=== PATIENT | female | born 1935 | race Caucasian/White ===

== ENCOUNTER 2017-11-30 11:03 | Day surgery (SDC) | payer MEDICARE, BC, SELFPAY ==
[2017-11-30] VITALS (7 sets, daily range): BP systolic 130–146; BP diastolic 63–88; PULSE 54–64; RESP 16; TEMP 36.3–36.9; O2SAT 98–100; BMI 32.1
--- NOTE | 2017-11-30 | COLBX_PTH ---
PATIENT: GEOFFREY NASSAR LOC: EN U#:[id number] AGE/SX: 82/F ROOM: RE11/30/[address]: Dr. Geovanny Al MD : 1935 BED: DIS: 11/30/2017 SPEC #: [id number] RECD: 11/30/17 14:57 STATUS: JUVENTINO RENeal #: [id number] STACI: 11/30/17 00:[address]: Geovanny Al DEPT: SURGICAL PATHOLOGY RECD BY: Chandana Kumar ENTERED: 11/30/17 14:58 SP TYPE: COLON BX OTHR DR: Dr. Ken Contreras MD Tissues: COLON BIOPSY Procedures: Surgery Specimen Level IV HEADER OPERATION: Colonoscopy with polypectomy PRE-OP DIAGNOSIS: High risk screening TISSUE SUBMITTED: Polyp 20 cm MICROSCOPIC DIAGNOSIS Polyp at 20 cm, polypectomy: Tubular adenoma. SJ:delonte 12/01/17 MICROSCOPIC DESCRIPTION Slides are reviewed. GROSS DESCRIPTION Received in fixative is one container labeled with the patient's name and designated polyp 20 cm. The specimen consists of one irregular fragment of light moy soft tissue that measures 0.5 x 0.2 x 0.1 cm. The specimen is totally submitted in one cassette. / SJ:delonte 11/30/17 TC:1 CPT: 89721
--- NOTE | 2017-11-30 12:13 | PCM.HP.BLA ---
History and Physical Date of Admission: 11/30/17 ? Debi Kenney 1935 ? REFERRING PHYSICIAN: ~~Ken Contreras MD ? CHIEF COMPLAINT: ~~Established Patient (Update H&P colonoscopy) ? HPI: The patient is a 82 year old female referred for endoscopy. ~The patient was evaluated by Augusta Palacios CNP on 10/05/17. ~Per her H&P from that date: ~ ? Debi Barbie Kenney a 82 year old female who is referred by Dr. Contreras?for a screening colonoscopy due to a history of PE. The patient denies?a family?history of colon cancer, although her mother of liver cancer. ?? The patient had presented to [facility] ED in November of 2016 with chest pressure. ?Patient has long history of swelling in her left leg and ankle but has never been diagnosed with DVT. On admission, patient had?an elevated d-dimer and?troponin. CT angiogram was done and showed bilateral massive pulmonary embolism. She was admitted to the ICU and was given IV heparin for 2 days before converting to Eliquis 10mg twice daily time one week, then 5 mg twice daily. EKG showed?right heart strain with sinus bradycardia. ?? The patient was evaluated by Dr. Ayers . That note has also been reviewed. ?? The patient was under the care of denisha Childs, at [facility]. ?Eliquis was recently discontinued. ?She saw Dr. Luevano in July. That scanned note has been reviewed. He discontinued the Eliquis at that time, but the patient requested to continue until she ran out of medication (she had two bottles at home). ? The patient was seen by Dr. Wood?for screening colonoscopy 09/17/11. ?The procedure report has been reviewed and findings as follows: Impression: ?- Non-bleeding internal hemorrhoids. ?- Diverticulosis in the sigmoid colon and in the ?descending colon. ?- Tortuous colon. ? Presenting complaint:?The patient denies?change in bowel habits, rectal bleeding or abdominal pain. She tends toward constipation. Taking Miralax daily. Having a bowel movement daily. ? ?? Taking pantoprazole daily. ?EGD by Dr. Demetris Alcazar 05/29/17 for reported epigastric pain. ?Denies any upper GI complaints. ? The patient was scheduled for colonoscopy with Monitored Anesthetic Care with Dr. Al at [facility] on 11/30/17. ~Updated history and physical appointment was requested by Dr. Al since greater than 30 days since evaluation. ~The patient denies any significant change to her~overall health since her~last visit. ~She denies any chest pain or shortness of breath. ~Her~past medical history, past surgical history, medications and allergies are up to date as of this visit. ? The patient notes recall from her prior colonoscopy. ~She denies other issues with sedation in the past. ? The patient is requesting a lower-volume bowel prep than the golytely. ? ? PAST?MEDICAL?HISTORY PAST MEDICAL HISTORY Diagnosis Date DDD (degenerative disc disease), lumbar 02/16/2012 Depression (emotion) 03/17/2005 Diverticulosis of small intestine (without mention of hemorrhage) ? Enthesopathy of hip region 07/08/2011 Essential hypertension 05/25/2008 Extrinsic asthma 01/29/2006 Family history of malignant neoplasm of gastrointestinal tract ? ? liver cancer Foraminal stenosis of cervical region 01/30/2012 Gait disturbance 01/29/2017 Gastroesophageal reflux disease with esophagitis 05/13/2013 HERNIA UMBILICAL 12/19/2005 Hypothyroidism 03/17/2005 Irritable bowel syndrome with both constipation and diarrhea 09/23/2016 Pulmonary embolism with acute cor pulmonale (HCC) 11/24/2016 ? She was initially thought to have a NSTEMI, but was found to be a PE with Right Strain and NOT a NSTEMI. Pulmonary nodule 01/08/2017 ? ? PAST?SURGICAL?HISTORY PAST SURGICAL HISTORY Procedure Laterality Date COLONOSCOP W/ OR W/O BRSH SPEC ? 12/18/05 COLONOSCOP W/ OR W/O BRSH SPEC ? 09/17/11 EGD ? 05/29/2017 PAST SURGICAL HISTORY OF ? 09/14 ? jacinto eyelid removal dropping skin PAST SURGICAL HISTORY OF ? 11/19/11, 11/24/11 ? cataract removal REMOVAL GALLBLADDER ? 1998 SLING OPER STRES INCONTINENCE ? 2004 TONSILLECTOMY HX ? 1957 VAG HYST,RMV TUBE/OVARY ? 1996 ? uterine prolapse, hyst. bilateral oophorectomy ? ? CURRENT?MEDICATIONS ? Current Outpatient Prescriptions: aspirin, enteric coated (ASPIRIN, ENTERIC COATED) 81 mg EC tablet Take 81 mg by mouth once daily. LORazepam (ATIVAN) 1 mg tablet Take 1 tablet by mouth at bedtime as needed for up to [address] (PROTONIX) 20 mg tablet TAKE 2 TABLETS BY MOUTH ONCE DAILY. meloxicam (MOBIC) 15 mg tablet Take 1 tablet by mouth once daily. PARoxetine (PAXIL) 40 mg tablet Take 1 tablet by mouth once daily. Cane yuriy 1 Units as directed. ergocalciferol, vitamin D2, (VITAMIN D) 50,000 unit capsule Take 1 capsule by mouth every 2 weeks. lamoTRIgine (LAMICTAL) 25 mg tablet TAKE 1 TABLET ONE TIME DAILY acetaminophen (TYLENOL ARTHRITIS PAIN) 650 mg CR tablet Take 1 tablet by mouth daily at bedtime. hydrocortisone 2.5 % cream Apply 1 application to affected area twice daily as needed. ankle baclofen (LIORESAL) 10 mg tablet Take 1/2 tablet by mouth twice daily. polyethylene glycol 3350 (MIRALAX, GLYCOLAX) 17 gram/dose powder Drink a mix of 1 scoop in 8oz of water/beverage once daily as needed for constipation. cyanocobalamin (VITAMIN B-12) 1,000 mcg tab Take 1,000 mcg by mouth once daily. levothyroxine (SYNTHROID) 88 mcg tablet TAKE 1 TABLET DAILY EXCEPT TAKE 1/2 TABLET ON THURSDAY ON AN EMPTY STOMACH albuterol HFA (VENTOLIN HFA) 90 mcg/actuation inhaler Inhale 2 Puffs as instructed every 4 hours as needed for Wheezing/Shortness of Breath. MULTIVITAMIN TAB Take one(1) tablet daily. ? No current facility-administered medications for this visit. ? ALLERGIES: Benadryl [Diphenhydramine Hcl]; Cats; Cipro [Ciprofloxacin]; Dust; Mold; Penicillins; Shellfish; Spiriva With Handihaler [Tiotropium [place]]; Sulfa (Sulfonamide Antibiotics); Symbicort [Budesonide-Formoterol]; Tetanus Toxoid Adsorbed; Tree's [Other] ? PERSONAL HISTORY: SOCIAL?HISTORY Social History ~~Marital status: ~~~~~~~~~~~Spouse name: ~~~~~~~~~~~~~~~~~~ ~~Years of education: ~~~~~~~~~~~~~~~~Number of children: 2 ~~~~~~~~ ? Occupational History Occupation ~~~~~~~~~Employer ~~~~~~~~~~~Comment ~~~~~~~~~~~~ ~~~~~~~~~~~~~~~~~~~~[employer] ? Social History Main Topics ~~Smoking status: Former Smoker ~~~~~~~~~~~~~~~~~~~~~~~~~~~~~~~~~~~~~~~~~~~~~~~~~~~~~~~~ ~~~~~Packs/day: 0.50 ~~~~~Years: 10.00 ~~ ~~~~~Types: Cigarettes ~~~~~Quit date: 05/14/1965 ~~Smokeless status: Never Used ~~~~~~~~~~~~~~~~~~~ ~~Alcohol use: Yes ~~~~~~~~ ~~~~~Comment: rare wine ~~Drug use: No ~~~~~~~~~ ~~Sexual activity: Yes ~~~~~~~~~~~~~~Partners with: Male ? Social History Narrative ~~Lives w/ single brother. Independent of all activities of daily living. ~ ? ? FAMILY HISTORY: FAMILY?HISTORY FAMILY HISTORY Problem Relation Age of Onset Cancer Mother ? Arthritis Mother ? Kidney Disease Mother ? Cancer Father ? ? ? lung ? REVIEW OF SYMPTOMS: ~~The review of systems data was entered by the nurse and reviewed by me ? Nursing Notes: Aleah Duron LPN ~11/23/2017 ~1:27 PM ~Signed REVIEW OF SYSTEMS: ~~~~~General:~~~The patient NOTES fatigue, denies weight loss, denies weight gain, denies feeling hot, and denies feelings of cold. ~~~~~Eyes: ~The patient denies glaucoma, denies eye injury/surgery, wears glasses or contacts. ~~~~~Ear/Nose/Throat: ~The patient NOTES allergies, denies hayfever, denies ear infections, and denies bloody noses. ~~~~~Cardiovascular: ~The patient denies chest pain, denies heart disease, NOTES high blood pressure,denies cardiac stent, denies prior heart attack, denies irregular heart beat, denies high cholesterol, ~denies poor circulation, denies heart failure, other cardiac issues, denies claudication, denies cold feet, denies peripheral arterial stent. ~~~~~Respiratory: ~The patient denies tuberculosis, NOTES pneumonia, NOTES frequent cough, NOTES pulmonary embolism, denies shortness of breath, and denies coughing up blood. ~~~~~Gastrointestinal: ~The patient denies difficulty swallowing, NOTES acid reflux, denies ulcers, denies vomiting, denies jaundice/hepatitis, denies gallbladder problems, denies black or tarry stools, denies hemorrhoids, denies bleeding from rectum, denies diverticulitis, denies constipation, denies diarrhea, denies loss of stool control, and denies hernias. ~~~~~Kidney/Bladder: ~The patient denies kidney stones, denies urine infections, and denies bloody urine. ~~~~~Skin: ~The patient denies a history of skin cancer, denies bleeding/changing moles, and NOTES a history of skin rash. ~~~~~Neurologic: ~The patient denies a history of epilepsy/convulsions, denies headaches, denies head/spinal injuries, and denies stroke/TIA. ~~~~~Psychiatric: ~The patient denies psychiatric medications, NOTES depression, and denies voices, denies substance abuse. ~~~~~Endocrine: ~The patient NOTES thyroid disorders, denies diabetes, and denies hormonal problems. ~~~~~Hematologic: ~The patient denies a history of bruising, denies bleeding, and NOTES anemia, NOTES blood clots. ~~~~~Infections: ~The patient denies a history of measles and mumps, denies rheumatic fever, and denies sexually transmitted diseases. ~~~~~Musculoskeletal: ~The patient NOTES back pain/injury, denies back problems, denies sciatica, denies knee/foot trouble, NOTES arthritis, or denies gout. ? ? When was patient's last Mammogram screening? 2017 ? ~Last Colonoscopy: ~2011 ? Aleah Duron LPN~ [place] PA-C ? ?? PHYSICAL EXAMINATION: ? General: ~The patient is 82 year old female, well nourished, well hydrated in no acute distress. ~The patient is oriented to time, place, and person. ? VITALS: Blood pressure 138/76, pulse 60.~There is no height or weight on file to calculate BMI.~ ? HEENT: ~Normal cephalic, ataumatic, pupils are equally round, sclera are anicteric, mucous membranes are moist, oropharynx is clear. ~Neck has no masses, asymmetry or lymphadenopathy. ~ ? Respiratory: ~Clear to auscultation and percussion. ~Normal respiratory excursion and pattern. ? Cardiac: ~Examination is regular rate and rhythm. ? Abdominal exam: ~Soft, nontender, ~with no palpable masses. ~No hepatosplenomegaly. ~No palpable hernias. ? Rectal exam: exam deferred ? Extremities: ~no clubbing, cyanosis or edema. ~No adenopathy. ? Other: ? LABORATORY VALUES: As Noted ? RADIOLOGIC STUDIES: ~As Noted ? ? Assessment ~ IMPRESSION: update H&P for screening colonoscopy with MAC scheduled for 11/30/17, no significant changes-proceed with endoscopy ? PLAN: ~We will plan for screening colonoscopy with MAC.~~We discussed the risks and benefits of the planned endoscopy. ~I have informed the patient that complications can occur including failure to complete the endoscopy and perforation. ~The patient had the opportunity to ask questions concerning the planned endoscopy. ~My staff has also explained the procedure to the patient in understandable terms and has given the patient printed material concerning the procedure. ~The patient freely consents to surgery. ? I plan to use Miralax bowel preparation for endoscopy ? The patient takes prescription medications which I feel decrease the chance of successful sedation. ~I therefore plan for monitored anesthetic care. ? Diagnoses: (Z12.11) Encounter for screening for malignant neoplasm of colon ~(primary encounter diagnosis) ? My findings have been communicated to Dr. Contreras~via shared medical record. ~This note will be forwarded to Dr. Ken Contreras MD. ?? Return to Clinic: The patient is instructed to follow-up with me 1 week post operatively. ? ? Barbie. Servando. -
--- NOTE | 2017-11-30 12:36 | HP.PCM_ITS ---
History and Physical Date of Admission: 11/30/17 ? Debi Kenney 1935 ? REFERRING PHYSICIAN: ~~Ken Contreras MD ? CHIEF COMPLAINT: ~~Established Patient (Update H&P colonoscopy) ? HPI: The patient is a 82 year old female referred for endoscopy. ~The patient was evaluated by Augusta Palacios CNP on 10/05/17. ~Per her H&P from that date: ~ ? Debi Barbie Kenney a 82 year old female who is referred by Dr. Contreras?for a screening colonoscopy due to a history of PE. The patient denies?a family? history of colon cancer, although her mother of liver cancer. ?? The patient had presented to [facility] ED in November of 2016 with chest pressure. ? Patient has long history of swelling in her left leg and ankle but has never been diagnosed with DVT. On admission, patient had?an elevated d-dimer and? troponin. CT angiogram was done and showed bilateral massive pulmonary embolism. She was admitted to the ICU and was given IV heparin for 2 days before converting to Eliquis 10mg twice daily time one week, then 5 mg twice daily. EKG showed?right heart strain with sinus bradycardia. ?? The patient was evaluated by Dr. Ayers . That note has also been reviewed. ?? The patient was under the care of denisha Childs, at [facility]. ?Eliquis was recently discontinued. ?She saw Dr. Luevano in July. That scanned note has been reviewed. He discontinued the Eliquis at that time, but the patient requested to continue until she ran out of medication (she had two bottles at home). ? The patient was seen by Dr. Wood?for screening colonoscopy 09/17/11. ?The procedure report has been reviewed and findings as follows: Impression: ?- Non-bleeding internal hemorrhoids. ?- Diverticulosis in the sigmoid colon and in the ?descending colon. ?- Tortuous colon. ? Presenting complaint:?The patient denies?change in bowel habits, rectal bleeding or abdominal pain. She tends toward constipation. Taking Miralax daily. Having a bowel movement daily. ? ?? Taking pantoprazole daily. ?EGD by Dr. Demetris Alcazar 05/29/17 for reported epigastric pain. ?Denies any upper GI complaints. ? The patient was scheduled for colonoscopy with Monitored Anesthetic Care with Dr. Al at [facility] on 11/30/17. ~Updated history and physical appointment was requested by Dr. Al since greater than 30 days since evaluation. ~The patient denies any significant change to her~overall health since her~last visit. ~She denies any chest pain or shortness of breath. ~Her~past medical history, past surgical history, medications and allergies are up to date as of this visit. ? The patient notes recall from her prior colonoscopy. ~She denies other issues with sedation in the past. ? The patient is requesting a lower-volume bowel prep than the golytely. ? ? PAST?MEDICAL?HISTORY PAST MEDICAL HISTORY Diagnosis Date ? DDD (degenerative disc disease), lumbar 02/16/2012 ? Depression (emotion) 03/17/2005 ? Diverticulosis of small intestine (without mention of hemorrhage) ? ? Enthesopathy of hip region 07/08/2011 ? Essential hypertension 05/25/2008 ? Extrinsic asthma 01/29/2006 ? Family history of malignant neoplasm of gastrointestinal tract ? ? liver cancer ? Foraminal stenosis of cervical region 01/30/2012 ? Gait disturbance 01/29/2017 ? Gastroesophageal reflux disease with esophagitis 05/13/2013 ? HERNIA UMBILICAL 12/19/2005 ? Hypothyroidism 03/17/2005 ? Irritable bowel syndrome with both constipation and diarrhea 09/23/2016 ? Pulmonary embolism with acute cor pulmonale (HCC) 11/24/2016 ? She was initially thought to have a NSTEMI, but was found to be a PE with Right Strain and NOT a NSTEMI. ? Pulmonary nodule 01/08/2017 ? ? PAST?SURGICAL?HISTORY PAST SURGICAL HISTORY Procedure Laterality Date ? COLONOSCOP W/ OR W/O BRSH SPEC ? 12/18/05 ? COLONOSCOP W/ OR W/O BRSH SPEC ? 09/17/11 ? EGD ? 05/29/2017 ? PAST SURGICAL HISTORY OF ? 09/14 ? jacinto eyelid removal dropping skin ? PAST SURGICAL HISTORY OF ? 11/19/11, 11/24/11 ? cataract removal ? REMOVAL GALLBLADDER ? 1998 ? SLING OPER STRES INCONTINENCE ? 2004 ? TONSILLECTOMY HX ? 1956 ? VAG HYST,RMV TUBE/OVARY ? 1996 ? uterine prolapse, hyst. bilateral oophorectomy ? ? CURRENT?MEDICATIONS ? Current Outpatient Prescriptions: aspirin, enteric coated (ASPIRIN, ENTERIC COATED) 81 mg EC tablet Take 81 mg by mouth once daily. LORazepam (ATIVAN) 1 mg tablet Take 1 tablet by mouth at bedtime as needed for up to [address] (PROTONIX) 20 mg tablet TAKE 2 TABLETS BY MOUTH ONCE DAILY. meloxicam (MOBIC) 15 mg tablet Take 1 tablet by mouth once daily. PARoxetine (PAXIL) 40 mg tablet Take 1 tablet by mouth once daily. Cane yuriy 1 Units as directed. ergocalciferol, vitamin D2, (VITAMIN D) 50,000 unit capsule Take 1 capsule by mouth every 2 weeks. lamoTRIgine (LAMICTAL) 25 mg tablet TAKE 1 TABLET ONE TIME DAILY acetaminophen (TYLENOL ARTHRITIS PAIN) 650 mg CR tablet Take 1 tablet by mouth daily at bedtime. hydrocortisone 2.5 % cream Apply 1 application to affected area twice daily as needed. ankle baclofen (LIORESAL) 10 mg tablet Take 1/2 tablet by mouth twice daily. polyethylene glycol 3350 (MIRALAX, GLYCOLAX) 17 gram/dose powder Drink a mix of 1 scoop in 8oz of water/beverage once daily as needed for constipation. cyanocobalamin (VITAMIN B-12) 1,000 mcg tab Take 1,000 mcg by mouth once daily. levothyroxine (SYNTHROID) 88 mcg tablet TAKE 1 TABLET DAILY EXCEPT TAKE 1/2 TABLET ON THURSDAY ON AN EMPTY STOMACH albuterol HFA (VENTOLIN HFA) 90 mcg/actuation inhaler Inhale 2 Puffs as instructed every 4 hours as needed for Wheezing/Shortness of Breath. MULTIVITAMIN TAB Take one(1) tablet daily. ? No current facility-administered medications for this visit. ? ALLERGIES: Benadryl [Diphenhydramine Hcl]; Cats; Cipro [Ciprofloxacin]; Dust; Mold; Penicillins; Shellfish; Spiriva With Handihaler [Tiotropium Stafford]; Sulfa (Sulfonamide Antibiotics); Symbicort [Budesonide-Formoterol]; Tetanus Toxoid Adsorbed; Tree's [Other] ? PERSONAL HISTORY: SOCIAL?HISTORY Social History ~~Marital status: ~~~~~~~~~~~Spouse name: ~~~~~~~~~~~~~~~~~~ ~~Years of education: ~~~~~~~~~~~~~~~~Number of children: 2 ~~~~~~~~ ? Occupational History Occupation ~~~~~~~~~Employer ~~~~~~~~~~~Comment ~~~~~~~~~~~~ ~~~~~~~~~~~~~~~~~~~~[employer] ? Social History Main Topics ~~Smoking status: Former Smoker ~~~~~~~~~~~~~~~~~~~~~~~~~~~~~~~~~~~~~~~~~~~~~~~~ ~~~~~~~~ ~~~~~Packs/day: 0.50 ~~~~~Years: 10.00 ~~ ~~~~~Types: Cigarettes ~~~~~Quit date: 05/14/1965 ~~Smokeless status: Never Used ~~~~~~~~~~~~~~~~~~~ ~~Alcohol use: Yes ~~~~~~~~ ~~~~~Comment: rare wine ~~Drug use: No ~~~~~~~~~ ~~Sexual activity: Yes ~~~~~~~~~~~~~~Partners with: Male ? Social History Narrative ~~Lives w/ single brother. Independent of all activities of daily living. ~ ? ? FAMILY HISTORY: FAMILY?HISTORY FAMILY HISTORY Problem Relation Age of Onset ? Cancer Mother ? ? Arthritis Mother ? ? Kidney Disease Mother ? ? Cancer Father ? ? ? lung ? REVIEW OF SYMPTOMS: ~~The review of systems data was entered by the nurse and reviewed by me ? Nursing Notes: Aleah Duron LPN ~11/23/2017 ~1:27 PM ~Signed REVIEW OF SYSTEMS: ~~~~~General:~~~The patient NOTES fatigue, denies weight loss, denies weight gain, denies feeling hot, and denies feelings of cold. ~~~~~Eyes: ~The patient denies glaucoma, denies eye injury/surgery, wears glasses or contacts. ~~~~~Ear/Nose/Throat: ~The patient NOTES allergies, denies hayfever, denies ear infections, and denies bloody noses. ~~~~~Cardiovascular: ~The patient denies chest pain, denies heart disease, NOTES high blood pressure,denies cardiac stent, denies prior heart attack, denies irregular heart beat, denies high cholesterol, ~denies poor circulation, denies heart failure, other cardiac issues, denies claudication, denies cold feet, denies peripheral arterial stent. ~~~~~Respiratory: ~The patient denies tuberculosis, NOTES pneumonia, NOTES frequent cough, NOTES pulmonary embolism, denies shortness of breath, and denies coughing up blood. ~~~~~Gastrointestinal: ~The patient denies difficulty swallowing, NOTES acid reflux, denies ulcers, denies vomiting, denies jaundice/hepatitis, denies gallbladder problems, denies black or tarry stools, denies hemorrhoids, denies bleeding from rectum, denies diverticulitis, denies constipation, denies diarrhea, denies loss of stool control, and denies hernias. ~~~~~Kidney/Bladder: ~The patient denies kidney stones, denies urine infections , and denies bloody urine. ~~~~~Skin: ~The patient denies a history of skin cancer, denies bleeding/ changing moles, and NOTES a history of skin rash. ~~~~~Neurologic: ~The patient denies a history of epilepsy/convulsions, denies headaches, denies head/spinal injuries, and denies stroke/TIA. ~~~~~Psychiatric: ~The patient denies psychiatric medications, NOTES depression , and denies voices, denies substance abuse. ~~~~~Endocrine: ~The patient NOTES thyroid disorders, denies diabetes, and denies hormonal problems. ~~~~~Hematologic: ~The patient denies a history of bruising, denies bleeding, and NOTES anemia, NOTES blood clots. ~~~~~Infections: ~The patient denies a history of measles and mumps, denies rheumatic fever, and denies sexually transmitted diseases. ~~~~~Musculoskeletal: ~The patient NOTES back pain/injury, denies back problems , denies sciatica, denies knee/foot trouble, NOTES arthritis, or denies gout. ? ? When was patient's last Mammogram screening? 2017 ? ~Last Colonoscopy: ~2011 ? Aleah Duron LPN~ Mile Ashley PA-C ? ?? PHYSICAL EXAMINATION: ? General: ~The patient is 82 year old female, well nourished, well hydrated in no acute distress. ~The patient is oriented to time, place, and person. ? VITALS: Blood pressure 138/76, pulse 60.~There is no height or weight on file to calculate BMI.~ ? HEENT: ~Normal cephalic, ataumatic, pupils are equally round, sclera are anicteric, mucous membranes are moist, oropharynx is clear. ~Neck has no masses , asymmetry or lymphadenopathy. ~ ? Respiratory: ~Clear to auscultation and percussion. ~Normal respiratory excursion and pattern. ? Cardiac: ~Examination is regular rate and rhythm. ? Abdominal exam: ~Soft, nontender, ~with no palpable masses. ~No hepatosplenomegaly. ~No palpable hernias. ? Rectal exam: exam deferred ? Extremities: ~no clubbing, cyanosis or edema. ~No adenopathy. ? Other: ? LABORATORY VALUES: As Noted ? RADIOLOGIC STUDIES: ~As Noted ? ? Assessment ~ IMPRESSION: update H&P for screening colonoscopy with MAC scheduled for 11/30/17 , no significant changes-proceed with endoscopy ? PLAN: ~We will plan for screening colonoscopy with MAC.~~We discussed the risks and benefits of the planned endoscopy. ~I have informed the patient that complications can occur including failure to complete the endoscopy and perforation. ~The patient had the opportunity to ask questions concerning the planned endoscopy. ~My staff has also explained the procedure to the patient in understandable terms and has given the patient printed material concerning the procedure. ~The patient freely consents to surgery. ? I plan to use Miralax bowel preparation for endoscopy ? The patient takes prescription medications which I feel decrease the chance of successful sedation. ~I therefore plan for monitored anesthetic care. ? Diagnoses: (Z12.11) Encounter for screening for malignant neoplasm of colon ~( primary encounter diagnosis) ? My findings have been communicated to Dr. Contreras~via shared medical record. ~ This note will be forwarded to Dr. Ken Contreras MD. ?? Return to Clinic: The patient is instructed to follow-up with me 1 week post operatively. ? ? Ney Al. -
--- NOTE | 2017-11-30 12:50 | OP.PCM_ITS ---
Report of Operation Date of Procedure: 11/30/17 Pre-Operative Diagnosis: screening for colon cancer Post-Operative Diagnosis: polyp at 20cm, otherwise normal Surgery/Procedure Performed:: colonoscopy with snare polypectomy sliver machine operator: None Type of Anesthesia:: MAC Anesthesiologist: Alejandro Ortiz [id number] Specimen's removed: colon polyp Description of Procedure: The patient was brought to the endoscopy suite. Sign in was performed verifying patient, site, planned procedure, critical nursing information, the patient was monitored with cardiac, pulse oximetric, and blood pressure monitoring devices. Monitored anesthetic care was provided for sedation. The patient was positioned for colonoscopy. A digital rectal exam was performed which revealed no palpable abnormalities The video colonoscope was inserted and advanced to the cecum as verified by the ileocecal valve, cecal base anatomic features and palpation. as the scope was withdrawn, the cecum, ascending colon, hepatic flexure, transverse colon, descending colon and proximal sigmoid were unremarkable. A sessile polyp was encountered at 20 cm. This was removed completely with snare polypectomy and sent for pathology. The remainder of the colon was unremarkable. retroflexion was unremarkable. The patient tolerated the procedure well and was brought to recovery in stable condition
== END 2017-11-30 14:03 | disposition home or self-care (01) ==
LOC: EN 11:05 → AC 11:06
PROVIDERS: Family Provider Internal Medicine; PCP Internal Medicine; Visit Provider Surgery
PROC: 0DJD8ZZ Inspection of Lower Intestinal Tract, Via Natural or Artificial Opening Endoscopic (ICD-10-PCS; CPT 45378; principal; 2017-11-30 11:55)
DX: Z12.11 Encounter for screening for malignant neoplasm of colon (principal); D12.6 Benign neoplasm of colon, unspecified; K21.0 Gastro-esophageal reflux disease with esophagitis; K58.2 Mixed irritable bowel syndrome; K57.10 Diverticulosis of small intestine without perforation or abscess without bleeding; M51.36 Other intervertebral disc degeneration, lumbar region; F32.9 Major depressive disorder, single episode, unspecified; I10 Essential (primary) hypertension; J45.909 Unspecified asthma, uncomplicated; D64.9 Anemia, unspecified; F41.9 Anxiety disorder, unspecified; E03.9 Hypothyroidism, unspecified; Z80.0 Family history of malignant neoplasm of digestive organs; Z85.05 Personal history of malignant neoplasm of liver; Z86.718 Personal history of other venous thrombosis and embolism; Z86.711 Personal history of pulmonary embolism; Z79.82 Long term (current) use of aspirin; Z79.51 Long term (current) use of inhaled steroids; Z79.899 Other long term (current) drug therapy; Z87.891 Personal history of nicotine dependence
CPT/HCPCS: 45380; 88305; J7120

== ENCOUNTER → 2018-01-29 09:55 | Outpatient (CLI) | payer MEDICARE, BC, SELFPAY ==
--- NOTE | 2018-01-29 09:57 | ECHOCS_ITS ---
Reason For Study: PE, MARTINES Procedure This was a 2D Doppler, Color Flow transthoracic echocardiogram. The exam was of fair technical quality due to underlying pulmonary disease process. The study was technically difficult. Exam performed in department. Left Ventricle Normal LV size. Left ventricular systolic function is normal. The estimated ejection fraction is 60 %. There is evidence of diastolic dysfunction. No regional wall motion abnormalities noted. Right Ventricle Normal RV size. Normal systolic function. Atria The left atrium is mildly enlarged. The right atrium is mildly enlarged. No doppler evidence for ASD. Mitral Valve There is no mitral annular calcification. Normal mitral valve. Trivial mitral valve insufficiency. Tricuspid Valve Normal tricuspid valve. Moderate (2+) tricuspid valve insufficiency. Right ventricular systolic pressure estimated to be 54 mmHg. Aortic Valve Trisinus/trileaflet aortic valve. Mild diffuse aortic valve thickening. Pulmonic Valve The pulmonic valve is not well visualized. Trivial pulmonic valve insufficiency. Great Vessels Normal sized aortic root. Pericardium/Pleural No pericardial effusion. MMode/2D Measurements & Calculations LVIDd: 4.4 cm IVSd: 0.99 cm LVOT diam: 2.0 cm LVIDs: 2.4 cm LVPWd: 0.86 cm LVOT area: 3.2 cm2 RVDd: 4.3 cm FS: 44.5 % Ao root diam: 2.9 cm LAV(MOD-bp): 40.5 ml LA A4 area: 17.2 cm2 LAV(MOD-bp) Indexed: 21.6 ml/m2 LAV(MOD-sp2): 38.6 ml LAV(MOD-sp4): 41.5 ml RA A4 area: 18.8 cm2 Doppler Measurements & Calculations MV E max anuel: 67.9 cm/sec Lat Peak E' Anuel: 9.8 cm/sec Med Peak E' Anuel: 7.4 cm/sec MV A max anuel: 95.1 cm/sec E/E' lat: 6.9 E/E' med: 9.2 MV E/A: 0.71 Ao V2 max: 228.6 cm/sec LV V1 max: 136.3 cm/sec SV(LVOT): 95.3 ml Ao max P.9 mmHg LV V1 max P.4 mmHg Ao V2 mean: 149.7 cm/sec LV V1 mean P.6 mmHg Ao mean P.9 mmHg LV V1 mean: 89.7 cm/sec Ao V2 VTI: 48.3 cm LV V1 VTI: 30.2 cm JAKUB(I,D): 2.0 cm2 JAKUB(V,D): 1.9 cm2 PA V2 max: 108.3 cm/sec PI end-d anuel: 134.2 cm/sec TR max anuel: 355.9 cm/sec TR max P.7 mmHg Interpretation Summary The study was technically difficult. Left ventricular systolic function is normal. The estimated ejection fraction is 60 %. The left atrium is mildly enlarged. The right atrium is mildly enlarged. Trivial mitral valve insufficiency. Moderate (2+) tricuspid valve insufficiency. Mild diffuse aortic valve thickening. Trivial pulmonic valve insufficiency. Right ventricular systolic pressure estimated to be 54 mmHg. There is evidence of diastolic dysfunction. Ordering Physician: Irene Garcia Referring Physician: Ken Contreras Performed By: Joanna London RDCS, RVT
== END ==
PROVIDERS: Family Provider Internal Medicine; PCP Internal Medicine; Visit Provider Nurse Practitioner Acute Care
DX: I26.99 Other pulmonary embolism without acute cor pulmonale (principal)
CPT/HCPCS: 93306

== ENCOUNTER → 2018-01-30 10:44 | Outpatient (CLI) | payer MEDICARE, BC, SELFPAY ==
--- NOTE | 2018-01-30 10:45 | CT_ITS ---
STUDY: CT CHEST WITHOUT CONTRAST REASON FOR EXAM: Female, 82 years old. Pulmonary nodule. RADIATION DOSAGE (If Supplied By Facility): CTDIvol = ( 12.53 ) mGy, DLP = ( 457.07 ) mGycm TECHNIQUE: Transaxial imaging was performed without the administration of intravenous contrast material. Multiplanar coronal and sagittal images were reformatted. Individualized dose optimization techniques were used for this CT. COMPARISON: July 22, 2017 and November 17, 2016. FINDINGS: There is bronchiectasis of the lower chest with reticular nodular mid and lower lung opacities on the right more than the left. No dominant mass or nodule. There is no demonstrated pleural abnormality. There are calcifications of the coronary arteries. Normal mediastinum. Normal hilar regions. Normal unenhanced pulmonary arteries. There is atherosclerotic calcification of the aortic arch with tortuosity and elongation of the aortic arch and descending thoracic aorta. Normal osseous structures. There is no demonstrated abnormality of the visualized upper abdomen. CT/Chest without Contrast IMPRESSION: Bronchiectasis with reticular nodular lower lung opacities. No dominant mass. Electronically Signed: Shad Singleton MD at 15:13 EDT , Service support ,
== END ==
PROVIDERS: Family Provider Internal Medicine; PCP Internal Medicine; Visit Provider Nurse Practitioner Acute Care
DX: R91.1 Solitary pulmonary nodule (principal)
CPT/HCPCS: 71250

== ENCOUNTER → 2018-03-09 11:05 | Outpatient (CLI) | payer MEDICARE, BC, SELFPAY ==
--- NOTE | 2018-03-09 14:35 | PFT ---
INTRODUCTION: The patient is an 83-year-old female that presents for pulmonary function testing secondary to a diagnosis of dyspnea. Respiratory therapy reports good patient effort. Bronchodilators were used during testing. INTERPRETATION: Forced expiration spirometry demonstrates the presence of a mild large airways obstructive ventilatory defect. There was no significant response to aerosolized bronchodilators. Spirograms are of good quality and do not plateau indicating slow emptying of the lungs. Body plethysmography was performed and reveals an elevated TLC and RV, indicative of underlying hyperinflation and air-trapping. Diffusing capacity by single breath CO is relatively preserved at 78% of predicted. IMPRESSION: These pulmonary function studies demonstrate the presence of any reversible mild large airways obstructive ventilatory defect with associated hyperinflation and air-trapping. When compared to previous pulmonary function studies dated December 2016, there has been a 13% reduction in the patient's FEV1, along with increases in TLC and RV.
--- NOTE | 2018-03-09 14:38 | PFT_ITS ---
INTRODUCTION: The patient is an 83-year-old female that presents for pulmonary function testing secondary to a diagnosis of dyspnea. Respiratory therapy reports good patient effort. Bronchodilators were used during testing. INTERPRETATION: Forced expiration spirometry demonstrates the presence of a mild large airways obstructive ventilatory defect. There was no significant response to aerosolized bronchodilators. Spirograms are of good quality and do not plateau indicating slow emptying of the lungs. Body plethysmography was performed and reveals an elevated TLC and RV, indicative of underlying hyperinflation and air- trapping. Diffusing capacity by single breath CO is relatively preserved at 78 % of predicted. IMPRESSION: These pulmonary function studies demonstrate the presence of any reversible mild large airways obstructive ventilatory defect with associated hyperinflation and air-trapping. When compared to previous pulmonary function studies dated December 2016, there has been a 13% reduction in the patient's FEV1, along with increases in TLC and RV.
== END ==
PROVIDERS: Family Provider Internal Medicine; PCP Internal Medicine; Visit Provider Nurse Practitioner Acute Care
DX: R06.00 Dyspnea, unspecified (principal)
CPT/HCPCS: 94060; 94726; 94729

== ENCOUNTER → 2019-04-27 | Outpatient (CLI) | payer MEDICARE, BC, SELFPAY ==
[2019-04-07 14:02] VITALS: BMI 31.6
[2019-04-27] MEDS: Zolpidem Tartrate 5 MG Tablet PO (21:28)
== END | disposition home or self-care (01) ==
LOC: SL 20:45
PROVIDERS: Family Provider Internal Medicine; PCP Internal Medicine; Referring Provider Nurse Practitioner Acute Care; Visit Provider Nurse Practitioner Acute Care
DX: G47.33 Obstructive sleep apnea (adult) (pediatric) (principal)
CPT/HCPCS: 95810

== ENCOUNTER → 2019-05-19 | Outpatient (CLI) | payer MEDICARE, BC, SELFPAY ==
[2018-10-27 11:16] VITALS: BMI 31.6
[2019-04-07 14:02] VITALS: BMI 31.6
--- NOTE | 2019-05-20 08:41 | PFT ---
INTRODUCTION: The patient is an 84-year-old female that presents for pulmonary function studies secondary to a diagnosis of shortness of breath. Respiratory therapy reports good patient effort. Bronchodilators were used during testing. INTERPRETATION: Forced expiration spirometry demonstrates the presence of a mild large airways obstructive ventilatory defect. There was no significant response to aerosolized bronchodilators. Spirograms are of good quality and do not plateau indicating slow emptying of the lungs. Body plethysmography was performed and reveals lung volumes to be within normal limits. Diffusing capacity by single breath CO is within normal limits at 78% of predicted. IMPRESSION: Irreversible mild large airways obstructive ventilatory defect with preserved lung volumes and diffusing capacity.
== END | disposition home or self-care (01) ==
LOC: PSN 11:04
PROVIDERS: Family Provider Internal Medicine; PCP Internal Medicine; Referring Provider Nurse Practitioner Acute Care; Visit Provider Nurse Practitioner Acute Care
DX: J47.9 Bronchiectasis, uncomplicated (principal)
CPT/HCPCS: 94060; 94726; 94729

== ENCOUNTER → 2020-12-29 11:50 | Outpatient (CLI) | payer MEDICARE, BC, SELFPAY ==
[2020-12-27 17:05] VITALS: BMI 31.4
--- NOTE | 2020-12-29 11:58 | RAD_ITS ---
STUDY: X-RAY CHEST REASON FOR EXAM: Female, 85 years old. Bronchiectasis with exacerbation TECHNIQUE: PA and lateral views of the chest. COMPARISON: 11/17/2016 FINDINGS: The lungs are clear and expanded. There is no demonstrated pleural abnormality. Normal size heart. Normal mediastinum and michelle. Normal visualized pulmonary arteries. Normal visualized aortic arch and descending thoracic aorta. Normal visualized thoracic spine. Normal visualized ribs, clavicles, and shoulders. There is no demonstrated abnormality of the visualized soft tissue structures of the upper abdomen. RAD/Chest PA and Lateral IMPRESSION: Normal x-ray examination of the chest. Electronically Signed: Geovanny Hopper MD at 8:20 EDT Tel , Service support ,
== END ==
PROVIDERS: PCP Internal Medicine; Referring Provider Internal Medicine Critical Care Medicine; Visit Provider Internal Medicine Critical Care Medicine
DX: J47.9 Bronchiectasis, uncomplicated (principal)
CPT/HCPCS: 71046

== ENCOUNTER → 2021-01-03 | Outpatient (CLI) | payer MEDICARE, BC, SELFPAY ==
[2020-12-31 08:58] VITALS: BMI 31.5
== END | disposition home or self-care (01) ==
LOC: LABSPEC 15:15
PROVIDERS: PCP Internal Medicine; Visit Provider Otolaryngology Otolaryngology/Facial Plastic Surgery
DX: B37.9 Candidiasis, unspecified (principal)
CPT/HCPCS: 87070

== ENCOUNTER → 2021-01-22 06:05 | Outpatient (CLI) | payer MEDICARE, BC, SELFPAY ==
[2021-01-10 10:36] VITALS: BMI 31.4
--- NOTE | 2021-01-22 08:04 | STRESSREP ---
Stress Test Report Date: 01-22-2021 Procedure: Pharmacologic stress nuclear imaging study Indications: Dizziness; shortness of breath/dyspnea; sinus bradycardia Consent: Per the patient Procedure: The patient underwent pharmacologic (Regadenoson 0.4mg ) evaluation with a peak heart rate of 76 beats per minute (55%predicted maximal heart rate) and a peak blood pressure of 132/62 mmHg. The baseline ECG demonstrated sinus rhythm. The peak pharmacologic ECG demonstrated no obvious ECG changes. There was a rare PVC pretest and during recovery. There was no complaint of chest discomfort during pharmacologic infusion or recovery. The examination was discontinued secondary to completion of protocol. Impression: 1. Pharmacologic (Regadenoson) evaluation 2. Peak pharmacologic ECG with no obvious ECG changes. 3. There was a rare PVC pretest and during recovery. 4. Nuclear images pending Myocardial perfusion imaging study: Technique: The patient was injected with millicuries of technetium 99m Cardiolite and subsequently rest SPECT Cardiolite nuclear imaging was obtained in the horizontal long, vertical long, and short axis views. The patient underwent pharmacologic (Regadenoson) evaluation with a peak heart rate of 76 beats per minute (55% percent predicted maximal heart rate) and a peak blood pressure of 132/62 mmHg. The patient was injected with millicuries of technetium 99m Cardiolite and subsequently stress SPECT Cardiolite nuclear imaging was obtained in the horizontal long, vertical long, and short axis views. A gated Cardiolite study at peak stress was obtained. Interpretation: Rest and stress SPECT Cardiolite nuclear imaging status post realignment, normalization, and attenuation correction demonstrate relative uniform tracer uptake and myocardial perfusion appearing within normal limits. There is end systolic thickening and brightening. The gated Cardiolite study demonstrates myocardial thickening and inward wall motion. The reported LVEF is 77%. Impression: 1. Rest and stress SPECT Cardiolite nuclear imaging demonstrate relative uniform tracer uptake and myocardial perfusion appearing within normal limits. 2. The gated Cardiolite study reports an LVEF of 77%. This note was generated with [employer] software. It may contain incorrect words, spelling, and punctuation that were not noted in checking the note before signing.
== END ==
PROVIDERS: PCP Internal Medicine; Referring Provider Internal Medicine Cardiovascular Disease; Visit Provider Internal Medicine Cardiovascular Disease
DX: I25.2 Old myocardial infarction (principal)
CPT/HCPCS: 78452; 93017; A9500; A4216; J2785

== ENCOUNTER 2021-05-29 10:30 | Day surgery (SDC) | payer MEDICARE, BC, SELFPAY ==
--- NOTE | 2021-05-20 14:22 | RAD_ITS ---
STUDY: X-RAY CHEST REASON FOR EXAM: Female, 86 years old. For PPM implant on 05/27/[address] Mcpherson TECHNIQUE: PA and lateral views of the chest. COMPARISON: Comparison is made with prior study dated 12/29/2020. FINDINGS: There is hyperinflation of the lungs consistent with chronic obstructive lung disease (COPD). Stable mild increased linear markings at the lung bases suggesting mild basilar scarring. There is no demonstrated pleural abnormality. There is mild cardiac enlargement. Normal mediastinum and michelle. Normal visualized pulmonary arteries. There is atherosclerotic calcification of the aortic arch with tortuosity. There is demineralization of the osseous structures. Normal visualized ribs, clavicles, and shoulders. Surgical clips are seen in the right upper quadrant most likely secondary to prior cholecystectomy. RAD/Chest PA and Lateral IMPRESSION: Hyperinflation. Stable mild increased linear markings at the lung bases suggestive of mild linear scarring. Electronically Signed: Km George MD at 15:00 EDT , Service support ,
[2021-05-20 14:51] LABS: Bacteria 0 SEEN /hpf (None Seen); Mucous, Urine 0 SEEN /hpf (<or=2+); Red Blood Cells-Urine 0 SEEN /hpf (0-5)
[2021-05-20 15:21] LABS: Hemoglobin 13.2 g/dL (12.0-15.0); Mean Corp Hgb Conc 30.7 g/dL (32-36); Mean Corpuscular Hgb 28.3 pg (27.0-32.0); Mean Corpuscular Volume 92.3 fL (81-99); Mean Platelet Vol. 10.7 fl (6.2-12.0); Platelet Count 271 K/mm3 (150-450); RBC Distribution Width CV 14.6 % (11.6-14.6); RBC Distribution Width SD 49.9 fl (35.1-43.9); Red Blood Count 4.66 M/mm3 (4.2-5.4); White Blood Count 8.6 K/mm3 (4.4-11.0)
[2021-05-20 15:27] LABS: Color, Urine Yellow (Yellow); Glucose, Dipstick Normal (Normal); Ketone-Dipstick Negative (Negative); Leukocyte Esterase-Dipstick 100 /ul (Negative); Nitrite-Dipstick Negative (Negative); Occult Blood-Urine Negative /ul (Negative); Protein-Dipstick Negative (Negative); Specific Gravity, Urine 1.015 (1.002-1.030); Urine Bilirubin Dipstick Negative (Negative); Urine Clarity Clear (Clear); Urine Urobilinogen Normal (Normal)
[2021-05-20 15:41] LABS: International Normalized Ratio 0.9; Prothrombin Time (Protime)PT. 11.9 SECONDS (11.7-14.9)
[2021-05-20 15:45] LABS: Anion Gap 4 (5-15); BUN 20 mg/dL (7-18); Calcium,Total 9.6 mg/dL (8.5-10.1); Chloride 106 mmol/L (98-107); Creatinine, Serum 0.84 mg/dL (0.55-1.02); EST Glomerular Filtration Rate 69 mL/min (>60); Est Glom Filt Rate - Afr Amer 84 mL/min (>60); Glucose 103 mg/dL (74-106); Potassium 4.5 mmol/L (3.5-5.1); Sodium Level 139 mmol/L (136-145)
[2021-05-20 15:56] LABS: Squamous Epithelial Cells - UA 0-5 SEEN /hpf (5-10); White Blood Cells 5-10 SEEN /hpf (0-5)
[2021-05-28 10:20] VITALS: BMI 31.1
[2021-05-29] VITALS (8 sets, daily range): BP systolic 86–123; BP diastolic 57–66; PULSE 59–61; RESP 16–18; TEMP 36.6–37.1; O2SAT 96–100; BMI 32.4
--- NOTE | 2021-05-29 12:06 | CHAPLAIN ---
Type of Pastoral Visit _x__ Initial Visit ___ Follow-up Visit ___ On-call Visit ___ General Patient Visit ___ Spiritual Assessment ___ Family Conference ___ Bereavement ___ Rapid Response ___ Code Blue ___ Other (describe below) Pastoral Care Referral From _x__ Patient ___ Family ___ Nurse ___ Physician ___ Bookkeeping Machine Mechanic ___ Advisor To Command In Combat ___ Other (describe below) Sacrament/Intervention _x__ Active listening ___ Anointing ___ Jain ___ Bereavement ___ Communion _x__ Annita exploration ___ _x__ Life review _x__ Prayer ___ Reconciliation ___ Sacrament of Sick __x_ Supportive presence ___ Wedding ___ Other (describe below) Pastoral Comments patient requested prayer before procedure in [employer]; pt gives some review of life and annita; pt does not have a local christianity affiliation but seeks spiritual care; daughter is with patient
--- NOTE | 2021-05-29 13:23 | CL.IE_ITS ---
Patient: GEOFFREY NASSAR Study Date: 05/29/2021 Performing: Zane Mcpherson MD : 1935 Age: 86 Gender: female PROCEDURES PERFORMED [id number] PACER INSERT+DUAL LEADS INDICATIONS Sinoatrial node dysfunction/Sick sinus syndrome PROCEDURE DETAILS The patient was brought to the Catheterization Lab in the postabsorptive nonsedated state. Infor med consent was obtained prior to the procedure. Local anesthetic was given subcutaneously to the le ft subclavian region with Lidocaine 2%. Access was achieved and a guidewire was advanced into the lef t subclavian vein. PPM ventricular lead was inserted / positioned to right ventricular septal wall. P PM ventricular lead testing performed. PPM ventricular lead testing performed. PPM atrial lead was in serted / positioned to the right atrial appendage. The Atrial lead sutured in place with 2-0 Silk. Th e Ventricular PM lead sutured in place with 2-0 Silk. PPM generator was attached to the lead(s) and i nserted into the pocket. Device pocket was irrigated with antibiotic. Subcutaneous closure was comple brandie with 3-0 Vicryl. Skin closure was completed with 4-0 Vicryl. Steri-strips applied to left subclav icular incision. Instrument, sponge, and needle counts were noted to be normal. The patient tolerated the procedure well. Estimated Blood Loss: 15 ml's IMPLANTED / EX-PLANTED DEVICES IMPLANTED DEVICE(S): PPM Atrial lead - Prototype Engineer Manager: [employer], Model # Ingevity 45cm 7840 , Serial # [id number] PPM Ventricular lead - Prototype Engineer Manager: [employer], Model # Ingevity 52cm 7841 , Serial # [id number] PPM Generator - Prototype Engineer Manager: [employer], Model #L[address] Pacemaker , Serial # [id number] DEVICE PARAMETERS ATRIAL LEAD PARAMETERS: P wave- 0.5 (mV) Current- 1.7 (mA) threshold- 0.9 (V) impedence- 552 (OHMS) VENTRICULAR LEAD PARAMETERS: R wave- 2.5 (mV) Current- 0.5 (mA) threshold- 0.5 (V) impedence- 1244 (OHMS) DEVICE PARAMETERS: Mode- DDD Lower rate- 60 Upper rate- 120 CONCLUSIONS / RECOMMENDATIONS Device Conclusions: Successful implantation of a dual chamber pacemaker Device Recommendations: Follow up with Primary Care Physician PROCEDURE MEDICATIONS Versed 1 mg IV Fentanyl 25 mcg IV Oxygen: 2 L/min via nasal cannula Antibiotic given in appropriate timeframe. Benadryl 25 mg IV @ 05/29/2021 12:12:31 Clindamycin 900 mg IV 05/29/2021 11:50:38 Signed By Zane Mcpherson MD On 05/29/2021 13:21:55 Zane Mcpherson MD
--- NOTE | 2021-05-29 15:50 | PCS.PANDOC ---
PANDEMIC DOCUMENTATION INITIATED: Date: 04/22/2021 Time: 190
--- NOTE | 2021-05-29 16:34 | ECHOL_ITS ---
Reason For Study: Pericardial effusion Procedure This was a limited 2D transthoracic echocardiogram. Exam performed portable in patient room. Left Ventricle Normal LV size. Left ventricular systolic function is normal. The estimated ejection fraction is 60 %. No regional wall motion abnormalities noted. Right Ventricle Normal RV size. ICD or pacer leads identified within the right ventricle. Normal systolic function. Mitral Valve Normal mitral valve. Great Vessels Normal aortic root. Pericardium/Pleural No pericardial effusion. MMode/2D Measurements & Calculations LVIDd: 3.9 cm IVSd: 1.2 cm LVIDs: 2.7 cm LVPWd: 1.1 cm FS: 30.1 % Doppler Measurements & Calculations TR max nuvia: 266.3 cm/sec TR max P.4 mmHg ECHO/Echo, Limited Study Interpretation Summary Normal LV size. Left ventricular systolic function is normal. The estimated ejection fraction is 60 %. No pericardial effusion. ICD or pacer leads identified within the right ventricle. Ordering Physician: Zane Mcpherson Referring Physician: Ken Contreras Performed By: Joanna London, RDCS, RVT
[2021-05-29] MEDS: Ondansetron 4 MG/2 ML Vial IV (16:35)
--- NOTE | 2021-05-29 16:36 | RAD_ITS ---
STUDY: X-RAY CHEST REASON FOR EXAM: Female, 86 years old. Question pneumothorax. TECHNIQUE: Single AP portable view of the chest. COMPARISON: 05/20/2021. FINDINGS: There is now a left-sided dual-lead cardiac pacemaker. Electrodes overlie the right atrium and right ventricle, respectively. No pneumothorax. The lungs are clear and expanded. There is no demonstrated pleural abnormality. Normal size heart. Normal mediastinum and michelle. Normal visualized pulmonary arteries. Normal visualized aortic arch and descending thoracic aorta. No osseous changes. There is no demonstrated abnormality of the visualized soft tissue structures of the upper abdomen. RAD/Chest 1 View (Portable) IMPRESSION: Interval cardiac pacemaker placement. There is no pneumothorax or other abnormality. Electronically Signed: Juan George DO at 17:57 EDT Tel [phone], Service support ,
[2021-05-29] MEDS: 0.9% Normal Saline 1,000 ML 100 ML IV (17:49)
[2021-05-29] MEDS: MethylPREDNISolone 125 MG/2 ML Vial IV (19:55)
[2021-05-29] MEDS: 0.9% Saline Lock 10 ML Syringe IV (19:56)
[2021-05-29] MEDS: Menthol/Lanolin/Calamine/Znox 113 GM Tube 1 APPLIC TOPICAL (20:57)
[2021-05-29] MEDS: Acetaminophen 325 MG Tablet 650 MG PO (20:57)
[2021-05-29] MEDS: LORazepam 1 MG Tablet 2 MG PO (20:57)
[2021-05-30 02:48] VITALS: PULSE 60
[2021-05-30 03:00] VITALS: BP 121/62; PULSE 60; RESP 18; TEMP 37.2; O2SAT 93
[2021-05-30] MEDS: 0.9% Normal Saline 1,000 ML 100 ML IV (03:03)
--- NOTE | 2021-05-30 05:55 | RAD_ITS ---
STUDY: X-RAY CHEST REASON FOR EXAM: Female, 86 years old. Post permanent ICD/Pacemaker -- inspiration/expiration. Arms Down. Wet read to MD TECHNIQUE: PA and lateral views of the chest. Inspiratory expiratory COMPARISON: May 29, 2021 FINDINGS: There is a left-sided pacer defibrillator with leads overlying the right atrium and ventricle. There is minimal lower lobe atelectasis. There is no visualized pneumothorax. There is no demonstrated pleural abnormality. There is mild cardiac enlargement. Normal mediastinum and michelle. Normal visualized pulmonary arteries. There is atherosclerotic tortuosity of the aortic arch and descending thoracic aorta. There are diffuse degenerative changes of the visualized thoracic spine. Normal visualized ribs, clavicles, and shoulders. There is no demonstrated abnormality of the visualized soft tissue structures of the upper abdomen. RAD/Chest 3 View IMPRESSION: No pneumothorax. Status post left-sided pacemaker placement. Mild cardiomegaly tortuous aorta minimal atelectasis. Electronically Signed: Cyndi Rogers MD at 7:13 EDT Tel , Service support ,
[2021-05-30 06:47] VITALS: PULSE 60
--- NOTE | 2021-05-30 08:45 | PN.CARD_ITS ---
Subjective Subjective Patient seen and evalauted Objective Data Vital Signs: Vital Signs Temp Pulse Resp BP Pulse Ox 98.9 F 60 18 121/62 H 93 05/30/21 03:00 05/30/21 06:47 05/30/21 03:00 05/30/21 03:00 05/30/21 03:00 Oxygen Flow Rate (L/min) 1 Oxygen Delivery Method Nasal Cannula Weight: 183 lb 2 oz Body Mass Index (BMI) 32.4 Intake & Output: Intake and Output for Last 24 Hours 05/28/21 05/29/21 05/30/21 23:59 23:59 23:59 Intake Total 860 / 1300 1363.33 / 1363.33 Output Total 100 / 300 200 / 200 Balance 760 / 1000 1163.33 / 1163.33 Lab / Micro Data Result Diagrams: 05/20/21 14:50 05/20/21 14:50 Cardiology Labs/Tests Rhythm: EKG: ECHO: Stress Test: Cardiac Cath: PCI: CT Surgery: Holter monitor: EPS: PPM: CXR: Chest CT Scan: Radiography Diagnostic Testing: Radiology Impression Echocardiogram 05/29/21 16:34 Interpretation Summary Normal LV size. Left ventricular systolic function is normal. The estimated ejection fraction is 60 %. No pericardial effusion. ICD or pacer leads identified within the right ventricle. Ordering Physician: Zane Mcpherson Referring Physician: Ken Contreras Performed By: Joanna London, IRLANDACS, RVT Chest X-Ray 05/29/21 16:36 IMPRESSION: Interval cardiac pacemaker placement. There is no pneumothorax or other abnormality. Electronically Signed: Juan George DO at 17:57 EDT Tel [phone], Service support , Chest X-Ray 05/30/21 05:55 IMPRESSION: No pneumothorax. Status post left-sided pacemaker placement. Mild cardiomegaly tortuous aorta minimal atelectasis. Electronically Signed: Cyndi Rogers MD at 7:13 EDT Tel , Service support , Physical Exam Const alert, oriented x3 and no apparent distress General Appearance: cooperative HEENT hearing grossly normal bilaterally Head and Scalp: atraumatic Eyes EOMs intact bilaterally Neck General: normal visual inspection Chest inspection of chest normal and palpation of chest normal Resp normal respiratory effort Auscultation: clear to auscultation bilaterally Cardio regular rate, regular rhythm, S1 normal heart sound and S2 normal heart sound Jugular Venous Distention: JVD GI normal to inspection, nondistended, normoactive bowel sounds Extremity normal capillary refill and no pedal edema Peripheral Pulses: Yes pulses 2+ throughout and femoral pulses present Skin no rashes or lesions noted Neuro oriented x3 and CN's II-XII intact bilaterally Psych Appearance: grossly normal and appropriate Assessment & Plan Assessment/Plan (1) Presence of cardiac pacemaker: PLAN: Patient is status post permanent pacemaker implantation. Chest x- ray demonstrates no evidence of pneumothorax and pacemaker interrogation is normal. Patient will be discharged for outpatient follow-up.
--- NOTE | 2021-05-30 08:49 | PCM.DC ---
Discharge Instructions Diet Discharge Diet: No restrictions (as you feel able. No excessive stretching. No lifting your arm over your head (keep elbow below shoulder level) until seen for your pacemaker check. Do not lift your elbow away from your side until you are seen for your first visit. Keep the arm sling on if it helps remind you not to lift your arm.) Activity Additional Activity Instructions:: May shower or bathe on []. Do not scrub the incision or soak in the tub. Just wash with soap and let the water run over the incision. Gently pat dry with towel. Medications: Take your pain medication as directed. Refer to your discharge instruction sheet for a list of medications you are to take. Dressing / Incision Call your doctor if your incision/area has: Continuous Slow Oozing, Sudden Increased Bleeding, Increased Pain/ Swelling, Increased Redness, Foul Smelling Discharge and Swelling at the incision site Call your doctor if you observe: Fever of 101 or Higher, Shortness of breath, Dizziness, Fainting spells, Swelling in the ankles, Chest pain, Prolonged hiccupping and Increased palpitations (irregular heartbeat) Additional Dressing/Incision Instructions:: When dressing is removed, wash and dry incision. Keep covered with a light bandage if it is rubbing against your clothing. Do not cover the incision with an airtight bandage. Change the bandage daily. Do not remove steri strips. The strips will fall off on their own. Follow Up Care Please Follow Up With: Zane Mcpherson MD When: Call [phone] for follow up. Pacer clinic June 12 at 1 PM Test Results: Test results from this visit will be discussed in further detail at your follow-up appointment, if applicable. Discharge Plan Admission Attending Provider: Zane Mcpherson Primary Care Provider: Ken Contreras Discharge Orders/Prescriptions Prescriptions: No Action albuterol sulfate 90 mcg/actuation HFA aerosol inhaler 1 - 2 puff INHALATION Q4H PRN PRN (Reason: Shortness Of Breath) Qty: 18 RF: 6 albuterol sulfate 2.5 mg /3 mL (0.083 %) solution for nebulization 2.5 mg INHALATION Q4H PRN (Reason: Sob &/Or Wheezing) RF: 0 amlodipine 5 mg tablet 5 mg PO DAILY RF: 0 Combigan 0.2-0.5 % drops 1 drp ophthalmic (eye) BID RF: 0 bisacodyl [Dulcolax (bisacodyl)] 5 mg tablet,delayed release (DR/EC) 5 mg PO ONCE PRN (Reason: Constipation) RF: 0 ketotifen fumarate 0.025 % (0.035 %) drops 1 drp ophthalmic (eye) BID RF: 0 latanoprost 0.005 % drops, emulsion 1 drp ophthalmic (eye) QPM RF: 0 lisinopril 40 mg tablet 40 mg PO DAILY RF: 0 pantoprazole 20 mg tablet,delayed release (DR/EC) 40 mg PO DAILY RF: 0 loratadine [Claritin] 10 mg tablet 10 mg PO DAILY RF: 0 multivitamin 1 EACH tablet 1 tab PO DAILY RF: 0 acetaminophen 325 MG tablet 650 mg PO QHS RF: 0 paroxetine HCl 10 MG tablet 40 mg PO DAILY RF: 0 cyanocobalamin (vitamin B-12) 1,000 MCG tablet 1,000 mcg PO DAILY RF: 0 baclofen 10 MG tablet 5 mg PO BID RF: 0 ergocalciferol (vitamin D2) 1,250 mcg (50,000 unit) capsule 50,000 unit PO Q2W RF: 0 levothyroxine 88 mcg tablet 88 mcg PO .COMPLEX RF: 0 lorazepam 1 mg tablet 2 mg PO QHS RF: 0 polyethylene glycol 3350 17 GM packet 17 gm PO DAILY RF: 0 meloxicam 15 MG tablet 15 mg PO DAILY RF: 0 aspirin 81 MG tablet 81 mg PO DAILY@0800 RF: 0 lamotrigine 25 MG tablet extended release 24hr 25 mg PO DAILY RF: 0 fluticasone propionate 50 mcg/actuation blister with device 50 mcg inhalation DAILY PRN (Reason: Sob &/Or Wheezing) Qty: 60 RF: 3
[2021-05-30 08:52] VITALS: BP 124/57; PULSE 64; RESP 16; TEMP 36.9; O2SAT 94
[2021-05-30] MEDS: Paroxetine 20 MG Tablet 40 MG PO (08:57)
[2021-05-30] MEDS: amLODIPine 5 MG Tablet PO (08:57)
[2021-05-30] MEDS: Lisinopril 40 MG Tablet PO (08:57)
[2021-05-30] MEDS: Aspirin E.C. 81 MG Tablet PO (08:57)
[2021-05-30] MEDS: Menthol/Lanolin/Calamine/Znox 113 GM Tube 1 APPLIC TOPICAL (08:58)
--- NOTE | 2021-05-30 09:12 | NURSING ---
This RN provided Juan Daniel handout on fluzone vaccine
--- NOTE | 2021-05-30 09:53 | PHA.DC.MR ---
Pharmacy Service has performed discharge medication reconciliation for this patient. No new medications at time of discharge review. Medications reviewed are from previously reported home medications. Home Medications acetaminophen 650 mg PO QHS 11/17/16 baclofen 5 mg PO BID 11/17/16 cyanocobalamin (vitamin B-12) 1,000 mcg PO DAILY 11/17/16 multivitamin 1 tab PO DAILY 11/17/16 paroxetine HCl 40 mg PO DAILY 11/17/16 polyethylene glycol 3350 17 gm PO DAILY 05/27/17 aspirin 81 mg PO DAILY@0800 11/27/17 lamotrigine 25 mg PO DAILY 11/27/17 meloxicam 15 mg PO DAILY 11/27/17 albuterol sulfate 90 mcg/actuation aerosol inhaler 1 - 2 puff INHALATION Q4H PRN PRN #18 g 11/20/20 loratadine 10 mg tablet 10 mg PO DAILY 12/27/20 albuterol sulfate 2.5 mg INHALATION Q4H PRN ml 01/10/21 amlodipine 5 mg tablet 5 mg PO DAILY 01/10/21 bisacodyl 5 mg tablet,delayed release 5 mg PO ONCE PRN 01/10/21 brimonidine 0.2 %-timolol 0.5 % eye drops 1 drp OPHTHALMIC (EYE) BID 01/10/21 ergocalciferol (vitamin D2) 1,250 mcg (50,000 unit) capsule 50,000 unit PO Q2W cap 01/10/21 ketotifen fumarate 0.025 % (0.035 %) eye drops 1 drp OPHTHALMIC (EYE) BID 01/10/21 latanoprost 0.005 % eye drops, emulsion 1 drp OPHTHALMIC (EYE) QPM 01/10/21 levothyroxine 88 mcg tablet 88 mcg PO .COMPLEX 01/10/21 lisinopril 40 mg tablet 40 mg PO DAILY 01/10/21 lorazepam 1 mg tablet 2 mg PO QHS tab 01/10/21 pantoprazole 20 mg tablet,delayed release 40 mg PO DAILY tab 01/10/21 fluticasone propionate 50 mcg/actuation blister powder for inhalation 50 mcg INHALATION DAILY PRN #60 ea 04/02/21 The patient's discharge medication list was reviewed for discrepancies and discrepancies were resolved.
== END 2021-05-30 08:50 ==
LOC: CLSP 10:31 → PCU 05-30 09:27
PROVIDERS: Internal Medicine Cardiovascular Disease; PCP Internal Medicine; Referring Provider Internal Medicine Cardiovascular Disease; Visit Provider Internal Medicine Cardiovascular Disease
DX: I49.5 Sick sinus syndrome (principal); R06.00 Dyspnea, unspecified; I10 Essential (primary) hypertension; I25.2 Old myocardial infarction; J45.909 Unspecified asthma, uncomplicated; K21.9 Gastro-esophageal reflux disease without esophagitis; E03.9 Hypothyroidism, unspecified; Z79.51 Long term (current) use of inhaled steroids; Z79.899 Other long term (current) drug therapy; Z87.891 Personal history of nicotine dependence; Z23 Encounter for immunization
CPT/HCPCS: 33208; 36415; 71045; 71046; 71047; 80048; 81001; 85027; 85610; 93005; 93308; 99152; 99153; G0008; J7030; J7040; J7050; 90686; A4216; C1894; J2405

== ENCOUNTER 2021-12-18 11:44 | Outpatient (CLI) | payer MEDICARE, BC, SELFPAY ==
--- NOTE | 2021-12-18 11:52 | ART_ITS ---
Reason For Study: PVD Procedure A bilateral lower extremity continuous wave Doppler with analog waveform analysis,segmental pressures,and ankle brachial indexes without exercise. Left Segmental Pressures Left brachial= 126mmHg. Left posterior tibial artery = 145mmHg. Left dorsalis pedis artery = 137mmHg. Left digit = 114 mmHg. The left dorsalis pedis waveforms are triphasic. The left posterior tibial artery waveforms are triphasic. Right Segmental Pressures Right brachial= 128mmHg. Right posterior tibial artery = 156mmHg. Right dorsalis pedis artery = 142mmHg. Right digit = 133 mmHg. The right dorsalis pedis waveforms are triphasic. The right posterior tibial artery waveforms are triphasic. Indices The right ankle brachial index by the dorsalis pedis is 1.11. The right ankle brachial index by the posterior tibial artery is 1.22. The right digital-brachial index is 1.04. The left ankle brachial index by the dorsalis pedis is 1.07. The left ankle brachial index by the posterior tibial artery is 1.13. The left digital-brachial index is 0.89. VL/Lower Ext Art Exam w/o Exercis Interpretation Summary Triphasic Doppler waveforms are noted at ankle level bilaterally. Pulse-volume recordings appear satisfactory at all levels bilaterally, including low thigh, calf, ankle, and d igital levels. Resting ankle-brachial indices are normal bilaterally. Digital-brachial indices are normal bilaterally. There is no evidence of significant arterial occlusive disease in the lower ext remities bilaterally. Ordering Physician: Sidney Jolly Referring Physician: Ken Contreras M.D. Performed By: Gudelia Alvarez RVT
== END 2021-12-18 23:59 | disposition home or self-care (01) ==
LOC: CVS 11:51
PROVIDERS: PCP Internal Medicine; Visit Provider Podiatrist
DX: I73.9 Peripheral vascular disease, unspecified (principal); G60.0 Hereditary motor and sensory neuropathy
CPT/HCPCS: 93923

== ENCOUNTER → 2022-01-17 | Outpatient (CLI) | payer MEDICARE, BC, SELFPAY ==
--- NOTE | 2022-01-17 15:13 | NEURO ---
NCS and/or EMG Patient Report Ordering Doctor: Sidney Jolly DATE OF SERVICE: 01/17/22 Indication: Intermittent tingling in both feet. Evaluate for peripheral polyneuropathy. Findings: Nerve conduction studies were performed in the right and left lower extremities. The right peroneal motor study recording the extensor digitorum brevis showed a borderline amplitude, normal distal latency and normal conduction velocity. No conduction block or focal slowing was present across the fibular neck. The right tibial motor study recording the abductor hallucis brevis showed a normal amplitude, normal distal latency and normal conduction velocity. Right sural sensory response showed a normal amplitude and borderline conduction velocity. Right superficial peroneal sensory response showed a normal amplitude and conduction velocity. The left peroneal motor study recording the extensor digitorum brevis showed a borderline amplitude, normal distal latency and normal conduction velocity. No conduction block or focal slowing was present across the fibular neck. The left tibial motor study recording the abductor hallucis brevis showed a normal amplitude, normal distal latency and normal conduction velocity. Left sural sensory response showed a normal amplitude and conduction velocity. Left superficial peroneal sensory response showed a normal amplitude and conduction velocity. Needle EMG was omitted as it would be unlikely to alter the below impression. If this is strongly desired, it can be scheduled at a future time. Impression: This is a borderline study. There is no definitive electrophysiologic evidence of a large fiber peripheral polyneuropathy in the lower extremities. The borderline peroneal motor responses are likely normal for an octogenarian. Ulices Witt D.O. Multi Select Codes Neurology Neurology Interp Codes: 04517-62 [facility] test 7-8 studies (interp)
== END | disposition home or self-care (01) ==
LOC: PSN 13:30
PROVIDERS: PCP Internal Medicine; Referring Provider Podiatrist; Visit Provider Podiatrist
DX: I73.9 Peripheral vascular disease, unspecified (principal); G60.0 Hereditary motor and sensory neuropathy
CPT/HCPCS: 95910

== ENCOUNTER → 2022-08-20 | Outpatient (CLI) | payer MEDICARE, BC, SELFPAY ==
--- NOTE | 2022-08-20 14:19 | US_ITS ---
EXAM: US RETROPERITONEAL LIMITED, RENAL CLINICAL INDICATION: UTI TECHNIQUE: Limited grayscale and color Doppler sonographic evaluation of the retroperitoneum was performed. This report was created using [employer] technology. COMPARISON: None. FINDINGS: RIGHT KIDNEY: Right kidney measures 8.7 x 5.4 x 4.6 cm in diameter. The right cortex is mildly hyperechoic. The the right renal cortical thickness measures 1.6 cm. A 2 mm nonshadowing echogenic focus is seen within the midpole cortex of the right kidney and could represent tiny parenchymal calcification. No right-sided hydronephrosis or perirenal fluid collection. LEFT KIDNEY: Left kidney measures 9.2 x 4.4 x 4.0 cm in diameter. The right renal parenchyma is slightly hyperechoic. Right renal cortical thickness measures 1.3 cm. There is mild right hydronephrosis. BLADDER: Distended urinary bladder volume measures 230 cc. Urinary bladder wall is not thickened. Bilateral ureteral jets are noted. No bladder wall mass or bladder calculi identified. US/Kidney and Bladder IMPRESSION: Mildly hyperechoic kidneys indicating chronic renal medical disease. The right kidney is slightly smaller than normal. Mild left hydronephrosis. No renal or bladder mass. Electronically Signed: Adryan Liang MD at 2:22 EST ,
== END | disposition home or self-care (01) ==
LOC: US 14:15
PROVIDERS: PCP Internal Medicine; Referring Provider Urology; Visit Provider Urology
DX: N39.0 Urinary tract infection, site not specified (principal)
CPT/HCPCS: 76770

== ENCOUNTER → 2022-08-28 | Outpatient (CLI) | payer MEDICARE, BC, SELFPAY ==
--- NOTE | 2022-08-28 13:32 | CT_ITS ---
STUDY: CT ABDOMEN AND PELVIS WITH AND WITHOUT CONTRAST REASON FOR EXAM: Female, 87 years old. HYDRONEPHROSIS. Multiple UTIs. RADIATION DOSAGE (If Supplied By Facility): CTDIvol = ( 24.94 ) mGy, DLP = ( 3507.49 ) mGycm TECHNIQUE: Transaxial images were obtained from the dome of the diaphragm to the symphysis pubis without oral contrast. IV 100mL Isovue-300 was administered. Sagittal and coronal images were reconstructed. Individualized dose optimization techniques were used for this CT. COMPARISON: None. FINDINGS: Minimal increased markings are seen in the anterior medial aspect of the right lower lobe. This may represent an area of scarring. A dual-chamber pacemaker is seen. Coronary artery calcification. Normal liver. There are surgical clips in the gallbladder fossa consistent with a prior cholecystectomy. Normal spleen. Normal pancreas. Normal bilateral adrenal glands. Normal right kidney. Normal left kidney. Normal visualized stomach. Normal small intestine. There are scattered colonic diverticula consistent with diverticulosis. There is non-visualization of the appendix. There is diffuse atherosclerotic calcification of the abdominal aorta and its major visceral branches, without a demonstrated aneurysm. Normal inferior vena cava. Normal retroperitoneum. Normal urinary bladder. There is absence of the uterus consistent with a prior hysterectomy. Normal abdominal wall. Disc degeneration at the L4-L5 level. CT/CT Abd/Pelvis W/WO Contrast IMPRESSION: Status post cholecystectomy and hysterectomy. No acute abnormalities. Electronically Signed: Km George MD at 14:37 EST ,
[2022-08-28 14:20] LABS: CREATININE FINGERSTICK < 0.9 mg/dL (0.55-1.02); EGFR FINGERSTICK > 60.0000 mL/min (>60)
== END | disposition home or self-care (01) ==
LOC: CT 13:30
PROVIDERS: PCP Internal Medicine; Referring Provider Urology; Visit Provider Urology
DX: N13.30 Unspecified hydronephrosis (principal)
CPT/HCPCS: 74178; Q9967

== ENCOUNTER 2023-01-09 18:22 | Emergency (ER) | payer MEDICARE, BC, SELFPAY ==
[2023-01-09 18:23] VITALS: BP 141/69; PULSE 64; RESP 18; TEMP 35.9; O2SAT 97; BMI 32.5
--- NOTE | 2023-01-09 18:55 | RAD_ITS ---
INDICATION: Constipation EXAMINATION/TECHNIQUE: X-RAY - XR Abdomen 1 View COMPARISON: 08/28/2022 FINDINGS: BOWEL GAS PATTERN: Non-obstructive. No bowel or stomach distention. FREE AIR: Not assessed on a single supine view. ORGANOMEGALY: Not seen. CALCIFICATIONS: No abnormal calcifications observed. LOWER CHEST: No acute abnormal finding. BONES AND SOFT TISSUES: No acute abnormal finding. RAD/Abdomen Single View IMPRESSION: Non-obstructive bowel gas pattern. Electronically Signed: Marquise Matthew MD at 19:09 EDT ,
--- NOTE | 2023-01-09 19:01 | EX.ED.DYSGE1 ---
[facility] <Dr. Arturo Greer MD - Last Filed: 01/09/23 22:07> History of Present Illness Chief Complaint: Constipation Informant: patient Narrative Narrative: Patient complains of constipation. Patient has a long history of constipation. She states that she takes MiraLAX probably about half of the days of the month to try to maintain bowel habits. But sometimes she gets behind. Her last good bowel movement was almost a week ago. She still eating and drinking. No nausea or vomiting. But she just feels as though she needs to move her bowels. She is not having pain. She tried some MiraLAX this week. She also tried an enema today but does not really feel like she could get it to flow in. She is not sure if it really worked. She did not have success afterwards. She had tried a Dulcolax earlier in the week but ran out. No back pain. No history of AAA. Not lightheaded or dizzy. She states she has had this problem many times and this is the same as others. She does not feel sick or ill in any way. [facility] <Dr. Arturo Greer MD - Last Filed: 01/09/23 22:07> [facility] Medical History Acute respiratory failure with hypoxia Asthma exacerbation Asthmatic bronchitis , chronic Bilateral SubmassivePE Bronchiectasis Chest pain Chronotropic incompetence with sinus node dysfunction Cough Dizziness Dyspnea Essential hypertension GERD (gastroesophageal reflux disease) History of non-ST elevation myocardial infarction (NSTEMI) Hypothyroidism PND (post-nasal drip) Presence of cardiac pacemaker (~05/29/21) Pulmonary nodule Retinal detachment Sick sinus syndrome Sinus bradycardia Thrush, oral Home Medications acetaminophen 325 mg tablet 650 mg PO QHS pain 11/17/16 [History Last Taken 11/16/16] baclofen 10 mg tablet 5 mg PO BID muscle relaxer 11/17/16 [History Last Taken 11/16/16] cyanocobalamin (vitamin B-12) 1,000 mcg tablet 1,000 mcg PO DAILY vitamin 11/17/16 [History Last Taken 11/16/16] multivitamin 1 tab PO DAILY vitamin 11/17/16 [History Last Taken 11/16/16] paroxetine HCl 10 mg tablet 40 mg PO DAILY mental health 11/17/16 [History Last Taken 05/29/21] polyethylene glycol 3350 17 gram oral powder packet 17 gm PO DAILY constipation 05/27/17 [History Last Taken Unknown] aspirin 81 mg tablet,delayed release 81 mg PO DAILY@0800 heart health 11/27/17 [History Last Taken Unknown] lamotrigine 25 mg tablet,extended release 24 hr 25 mg PO DAILY 11/27/17 [History Last Taken Unknown] meloxicam 15 mg tablet 15 mg PO DAILY arthritis 11/27/17 [History Last Taken Unknown] loratadine 10 mg tablet (Claritin) 10 mg PO DAILY allergies 12/27/20 [History Last Taken Unknown] albuterol sulfate 2.5 mg/3 mL (0.083 %) solution for nebulization 2.5 mg inhalation Q4H PRN Sob &/Or Wheezing 01/10/21 [History Last Taken 05/29/21] amlodipine 5 mg tablet 5 mg PO DAILY blood pressure 01/10/21 [History Last Taken 05/29/21] bisacodyl 5 mg tablet,delayed release (Dulcolax (bisacodyl)) 5 mg PO ONCE PRN Constipation 01/10/21 [History Last Taken Unknown] brimonidine 0.2 %-timolol 0.5 % eye drops (Combigan) 1 drp ophthalmic (eye) BID eye health 01/10/21 [History Last Taken Unknown] ketotifen fumarate 0.025 % (0.035 %) eye drops 1 drp ophthalmic (eye) BID eye health 01/10/21 [History Last Taken Unknown] latanoprost 0.005 % eye drops, emulsion 1 drp ophthalmic (eye) QPM eye health 01/10/21 [History Last Taken Unknown] levothyroxine 88 mcg tablet 88 mcg PO .COMPLEX thyroid 01/10/21 [History Last Taken 05/29/21] lisinopril 40 mg tablet 40 mg PO DAILY blood pressure 01/10/21 [History Last Taken Unknown] lorazepam 1 mg tablet 2 mg PO QHS anxiety 01/10/21 [History Last Taken Unknown] pantoprazole 20 mg tablet,delayed release 40 mg PO DAILY reflux 01/10/21 [History Last Taken 05/29/21] vibegron 75 mg tablet (Gemtesa) 75 mg PO DAILY 08/07/21 [History Last Taken Unknown] albuterol sulfate 90 mcg/actuation aerosol inhaler 1 - 2 puff inhalation Q4H PRN PRN Shortness Of Breath #18 grams 02/11/22 [Rx Last Taken Unknown] ascorbic acid (vitamin C) 250 mg tablet 250 mg PO BID 08/19/22 [History Last Taken Unknown] d-mannose ea PO 08/19/22 [History Last Taken Unknown] lactobacillus combination no.9 4 billion cell capsule (Adult 50 Plus Probiotic) 4,000 mmu cells PO DAILY 08/19/22 [History Last Taken Unknown] conjugated estrogens 0.625 mg/gram vaginal cream 0.625 mg vaginal ONCE 09/10/22 [History Last Taken Unknown] ergocalciferol (vitamin D2) 1,250 mcg (50,000 unit) capsule 50,000 unit PO QMONTH vitamin 09/10/22 [History Last Taken Unknown] fluticasone furoate 100 mcg-vilanterol 25 mcg/dose inhalation powder (Breo Ellipta) 1 inh inhalation DAILY #60 ea 01/09/23 [Rx Last Taken Unknown] Allergy/AdvReac Type Severity Reaction Status Date / Time ciprofloxacin [From Cipro] Allergy Itching Verified 01/09/23 18:23 diphenhydramine Allergy Rash Verified 01/09/23 18:23 [From Benadryl] Penicillins Allergy Hives Verified 01/09/23 18:23 shellfish derived Allergy Anaphylaxis Verified 01/09/23 18:23 Sulfa (Sulfonamide Allergy Upset Verified 01/09/23 18:23 Antibiotics) Stomach tiotropium Allergy Other Verified 01/09/23 18:23 [From Spiriva with HandiHaler] ketamine AdvReac hallucinati Verified 01/09/23 18:23 ons Family History Mother Breast cancer Colon cancer Father Cancer Lung Grandmother Breast cancer CVA (cerebral vascular accident) Surgical History History of bladder suspension procedure History of bronchoscopy History of cataract extraction History of cholecystectomy History of hysterectomy History of tonsillectomy Social History Smoking Status: Former smoker Tobacco: How many years used: 10 second hand exposure: No alcohol intake: current details: occasional substance use type: does not use caffeine: Yes Type: coffee what type of physical activity do you participate in: other seatbelt use: always do you feel safe at home: Yes ROS <Dr. Arturo Greer MD - Last Filed: 01/09/23 22:07> ROS ED Constitutional Constitutional ED: Denies chills or fever(s) ENT ENT ED: Denies rhinorrhea Cardiovascular Cardiovascular: Denies chest pain or palpitations Respiratory/Chest Respiratory/Chest: Denies cough or dyspnea Gastrointestinal Gastrointestinal: Reports constipation; Denies abdominal pain, diarrhea, melena, nausea or vomiting Genitourinary Genitourinary ED: Denies dysuria or hematuria Musculoskeletal Musculoskeletal: Denies back pain Integumentary Denies rash Neurologic Neurologic: Denies paresthesias or weakness Endocrine Endocrinology: Denies polydipsia or polyuria Hematologic/Lymphatic Hematologic/Lymphatic: Denies easy bleeding or easy bruising Allergic/Immunologic Allergic/Immunologic ED: Denies urticaria EXAM <Dr. Arturo Greer MD - Last Filed: 01/09/23 22:07> Physical Exam Narrative Exam Narrative: CONSTITUTIONAL: Patient is nontoxic in appearance. The patient looks comfortable. HEENT: No notable trauma. Mucous membranes moist. EYES: No conjunctival injection. No proptosis. CARDIOVASCULAR: Regular rate. Regular rhythm. No notable murmur. No JVD. RESPIRATORY: No respiratory distress. Breathing is unlabored. No wheezes. No pain with a deep breath. GASTROINTESTINAL: Not distended. Bowel sounds are normal. No tenderness. No guarding. No rebound. No palpable mass. No bruit. Overall this is a very benign abdomen. GENITOURINARY: No tenderness over the bladder. No CVA tenderness. MUSCULOSKELETAL: Atraumatic. No peripheral edema. NEUROLOGICAL: Patient is alert and appropriate. No focal deficit noted. SKIN: No noted rashes. No diaphoresis. PSYCHIATRIC: Patient is calm. Mood is appropriate. Const Vital Signs: 01/09/23 18:23 Temperature 96.7 F L Temperature Source Temporal Pulse Rate 64 Respiratory Rate 18 Blood Pressure 141/69 H Blood Pressure Mean 93 Pulse Ox 97 Oxygen Delivery Method Room Air <Dr. Shad Hunter MD - Last Filed: 01/09/23 22:18> Physical Exam Const Vital Signs: 01/09/23 18:23 Temperature 96.7 F L Temperature Source Temporal Pulse Rate 64 Respiratory Rate 18 Blood Pressure 141/69 H Blood Pressure Mean 93 Pulse Ox 97 Oxygen Delivery Method Room Air [facility] <Dr. Arturo Greer MD - Last Filed: 01/09/23 22:07> [facility] Narrative Medical decision making narrative: My independent interpretation the patient's single view but to image x-ray of the abdomen shows no sign of obstruction but increased stool. Final reading is nonobstructive bowel gas pattern. With nurse Carmina, I did rectal exam. I can barely touch the tip of stool. I was able to place a tube for a warm soapsuds enema up and over the stool. We infused about half the bag. We let her rest. We infused a little bit more. She has now had a very large bowel movement and feels markedly better. We will get her home at this time. I explained that the medicines that she has been taking may help now. If not she can use balanced electrolyte solution which we will send home with her. If she develops fevers, pain, lightheadedness, blood in the stool or any other issue she should return. Radiography Diagnostic Testing: Clinical Impression(s) from Imaging Studies KUB X-Ray 01/09/23 18:55 IMPRESSION: Non-obstructive bowel gas pattern. Electronically Signed: Marquise Matthew MD at 19:09 EDT , <Dr. Shad Hunter MD - Last Filed: 01/09/23 22:18> [facility] Radiography Diagnostic Testing: Clinical Impression(s) from Imaging Studies KUB X-Ray 01/09/23 18:55 IMPRESSION: Non-obstructive bowel gas pattern. Electronically Signed: Marquise Matthew MD at 19:09 EDT , Treatment and Re-Evaluation Comments:: I accidentally clicked on this patient's chart and had no involvement in her care Discharge Plan Triage Chief Complaint: Constipation ED Provider: Arturo Greer Dx/Rx/DC Orders Clinical Impression: Constipation Instructions: ED Constipation (Adult) Prescriptions: No Action albuterol sulfate 2.5 mg /3 mL (0.083 %) solution for nebulization 2.5 mg INHALATION Q4H PRN (Reason: Sob &/Or Wheezing) amlodipine 5 mg tablet 5 mg PO DAILY Combigan 0.2-0.5 % drops 1 drp ophthalmic (eye) BID bisacodyl [Dulcolax (bisacodyl)] 5 mg tablet,delayed release (DR/EC) 5 mg PO ONCE PRN (Reason: Constipation) ketotifen fumarate 0.025 % (0.035 %) drops 1 drp ophthalmic (eye) BID Rx Instructions: administer at least 8 hours apart latanoprost 0.005 % drops, emulsion 1 drp ophthalmic (eye) QPM lisinopril 40 mg tablet 40 mg PO DAILY pantoprazole 20 mg tablet,delayed release (DR/EC) 40 mg PO DAILY loratadine [Claritin] 10 mg tablet 10 mg PO DAILY Gemtesa 75 mg tablet 75 mg PO DAILY albuterol sulfate 90 mcg/actuation HFA aerosol inhaler 1 - 2 puff INHALATION Q4H PRN PRN (Reason: Shortness Of Breath) Qty: 18 6RF ascorbic acid (vitamin C) 250 mg tablet 250 mg PO BID d-mannose Powder PO Adult 50 Plus Probiotic 4 billion cell capsule 4,000 mmu cells PO DAILY Rx Instructions: administer with a meal conjugated estrogens 0.625 mg/gram cream 0.625 mg vaginal ONCE Rx Instructions: Three times a week multivitamin 1 EACH tablet 1 tab PO DAILY Label Comments: supplement acetaminophen 325 MG tablet 650 mg PO QHS Label Comments: pain paroxetine HCl 10 MG tablet 40 mg PO DAILY Label Comments: anxiety/depression cyanocobalamin (vitamin B-12) 1,000 MCG tablet 1,000 mcg PO DAILY Label Comments: supplement baclofen 10 MG tablet 5 mg PO BID Label Comments: muscle spasms levothyroxine 88 mcg tablet 88 mcg PO .COMPLEX Label Comments: hypothyroidism Rx Instructions: 88 mcg PO MOTUWETHFRSA; lorazepam 1 mg tablet 2 mg PO QHS Label Comments: anxiety/sleep ergocalciferol (vitamin D2) 1,250 mcg (50,000 unit) capsule 50,000 unit PO QMONTH Label Comments: polyethylene glycol 3350 17 GM packet 17 gm PO DAILY meloxicam 15 MG tablet 15 mg PO DAILY aspirin 81 MG tablet 81 mg PO DAILY@0800 lamotrigine 25 MG tablet extended release 24hr 25 mg PO DAILY fluticasone furoate-vilanterol [Breo Ellipta] 100-25 mcg/dose blister with device 1 inh inhalation DAILY Qty: 60 6RF Primary Care Provider: Ken Contreras Referrals: Ken Contreras MD [Primary Care Provider] - 3-5 Days if not improving Disposition Disposition: Home, Self Care
[2023-01-09] MEDS: Electrolyte Solution/Peg's 4000 ML 2000 ML PO (22:25)
[2023-01-09 22:26] VITALS: BP 136/74; PULSE 64; RESP 15; O2SAT 97
== END 2023-01-09 22:27 | disposition home or self-care (01) ==
PROVIDERS: Emergency Provider Emergency Medicine; PCP Internal Medicine; Visit Provider Emergency Medicine
DX: K59.00 Constipation, unspecified (principal); I10 Essential (primary) hypertension; Z87.891 Personal history of nicotine dependence; J45.909 Unspecified asthma, uncomplicated
CPT/HCPCS: 74018; 99284

== ENCOUNTER → 2023-05-05 | Outpatient (CLI) | payer MEDICARE, BC, SELFPAY ==
[2023-05-05 15:11] LABS: Absolute Lymphocyte Count 1.71 X10^3/uL (0.83-4.51); Absolute Neutrophil Count 4.3 X10^3/uL (2.0-7.7); Basophil# 0.05 X10^3/uL; Basophil% 0.7 % (0-1); Eosinophils% 6.7 % (0-5); Hemoglobin 13.1 g/dL (12.0-15.0); Lymphocyte # 1.71 X10^3/ul (0.83-4.51); Lymphocyte % 22.8 % (19-41); Mean Corp Hgb Conc 30.5 g/dL (32-36); Mean Corpuscular Volume 95.1 fL (81-99); Mean Platelet Vol. 10.4 fl (6.2-12.0); Monocyte# 0.88 X10^3/uL; Monocyte% 11.7 % (0-10); NRBC Flagged by Analyzer 0 % (0-5); Neutrophil # 4.31 X10^3/uL (2.7-7.7); Neutrophil % 57.4 % (47-70); Platelet Count 234 K/mm3 (150-450); RBC Distribution Width CV 14.1 % (11.6-14.6); Red Blood Count 4.52 M/mm3 (4.2-5.4); White Blood Count 7.5 K/mm3 (4.4-11.0)
[2023-05-05 15:48] LABS: ALB/GLOB Ratio 0.9 RATIO (0.9-2.4); AST(SGOT) 19 U/L (15-37); Alanine Aminotransfer ALT/SGPT 17 U/L (13-56); Albumin, Serum 3.3 g/dL (3.2-5.0); Alkaline Phosphatase 128 U/L (45-117); Anion Gap 4 (5-15); BUN 21 mg/dL (7-18); BUN/Creat Ratio 22.6 RATIO (10-20); Calcium,Total 9.5 mg/dL (8.5-10.1); Chloride 107 mmol/L (98-107); Creatinine, Serum 0.93 mg/dL (0.55-1.02); EST Glomerular Filtration Rate 61 mL/min (>60); Est Glom Filt Rate - Afr Amer 74 mL/min (>60); Free T3 1.8 pg/mL (2.18-3.98); Globulin 3.8 g/dL (2.2-4.2); Glucose 88 mg/dL (74-106); Potassium 4.9 mmol/L (3.5-5.1); Protein, Total 7.1 g/dL (6.4-8.2); Sodium Level 140 mmol/L (136-145); T4 Free Direct 1.01 ng/dL (0.76-1.46); Thyroid Stim Hormone (TSH) 0.33 uIU/mL (0.358-3.74)
[2023-05-05 17:14] LABS: Vitamin D,25 Hydroxy 68.6 ng/mL
== END | disposition home or self-care (01) ==
LOC: LAB 14:12
PROVIDERS: PCP Internal Medicine; Referring Provider Nurse Practitioner Gerontology; Visit Provider Nurse Practitioner Gerontology
DX: R53.83 Other fatigue (principal); E55.9 Vitamin D deficiency, unspecified
CPT/HCPCS: 36415; 80053; 82306; 84439; 84443; 84481; 85025

== ENCOUNTER 2023-05-18 14:12 | Emergency (ER) | payer MEDICARE, BC, SELFPAY ==
[2023-05-18 14:17] VITALS: BP 140/78; PULSE 60; RESP 14; TEMP 35.7; O2SAT 96; BMI 34.7
[2023-05-18 14:19] VITALS: O2SAT 98
--- NOTE | 2023-05-18 14:35 | CT_ITS ---
STUDY: CT BRAIN WITHOUT CONTRAST REASON FOR EXAM: Female, 88 years old. Fall, head injury RADIATION DOSAGE (If Supplied By Facility): CTDIvol = ( 47.06 ) mGy, DLP = ( 837.39 ) mGycm TECHNIQUE: Transaxial CT imaging of the brain was performed without administration of intravenous contrast material. Individualized dose optimization techniques were used for this CT. COMPARISON: Comparison is made with prior study April 06, 2015. FINDINGS: Normal soft tissue structures. Normal calvarium. There is mild cerebral atrophy with widening of the extra-axial spaces and ventricular dilatation. There are areas of decreased attenuation within the white matter tracts of the supratentorial brain, consistent with microvascular disease changes. Stable small bilateral lacunar infarcts of the basal ganglion. Normal brainstem. Normal cerebellum. There is no intracranial hemorrhage. There are no findings of an acute ischemic infarction. Normal visualized paranasal sinuses. CT/Brain/Head without Contrast IMPRESSION: Chronic involutional changes of the brain. Electronically Signed: Km George MD at 15:57 EDT ,
--- NOTE | 2023-05-18 14:35 | CT_ITS ---
INDICATION: Status post fall EXAMINATION: CT CERVICAL SPINE - CT Spine Cervical W/O Contrast Injection TECHNIQUE: Helically acquired images were obtained of the cervical spine. 2D reformatted images were reviewed. A radiation dose optimization technique was used for this scan. IV Contrast dosage and agent: None. RADIATION DOSAGE (If Supplied By Facility): CTDIvol = ( 16.83 ) mGy, DLP = ( 343.16 ) mGycm COMPARISON: Prior examination of 04/06/2015. FINDINGS: VERTEBRAE: No fracture or traumatic subluxation. No discrete lytic or blastic abnormality. Minimal anterolisthesis of C4 over C5. Normal craniocervical junction and cervicothoracic junction. DISCS and SPINAL CANAL: Minimal anterolisthesis of C4 over C5 unchanged. Narrowing of C5-C6 disc space. Small left lateral degenerative spur. Degenerative changes in the apophyseal joints at the levels of C3-C4 and C4-C5 worse on the left side with mild narrowing of the left neural foramina unchanged. No critical stenosis. NECK SOFT TISSUES: No prevertebral soft tissue swelling. There is no cervical adenopathy. LUNG APICES: Clear. CT/Spine Cervical without Contras IMPRESSION: 1. No evidence of acute cervical spinal fracture or spondylolisthesis. 2. Degenerative changes unchanged. Electronically Signed: Stephane Melendez MD at 16:17 EDT ,
--- NOTE | 2023-05-18 14:35 | CT_ITS ---
STUDY: CT FACIAL BONES WITHOUT CONTRAST REASON FOR EXAM: Female, 88 years old. Fall, facial injury RADIATION DOSAGE (If Supplied By Facility): CTDIvol = ( 25.01 ) mGy, DLP = ( 517.39 ) mGycm TECHNIQUE: The patient was scanned in a multi detector CT scanner. Sagittal and coronal images were reconstructed. Individualized dose optimization techniques were used for this CT. COMPARISON: None. FINDINGS: Normal soft tissue structures. Normal orbital albert and orbital contents. Normal nasal bones and anterior nasal spine. Normal facial bones. There is no demonstrated fracture. Small mucosal polyp or retention cyst at the base of the right maxillary sinus. CT/Sinus/Facial Bone IMPRESSION: Small mucosal polyp or retention cyst at the base of the right maxillary sinus. Electronically Signed: Km George MD at 15:58 EDT ,
--- NOTE | 2023-05-18 14:39 | EDS_ITS ---
<Statement entered by Janett Her MD - 05/18/23 23:06> I have personally performed a face to face assessment of the patient and have reviewed the REGIS Note. Patient presents after fall in a parking lot. She tripped over something and fell forward striking her face and her knee. She denies loss of consciousness. She complains of pain to her face and knee. No vomiting or vision changes. She is not on anticoagulants. Patient sitting upright no acute distress. Head and neck examination reveals facial abrasions. Heart is regular rate and rhythm. Lung sounds are clear. Abdomen is soft and nontender. Extremity examination reveals ecchymosis and abrasions over the anterior right knee. Good range of motion. CT imaging of the head, C-spine, facial bones are obtained and reveal no evidence of acute fractures. Right knee x-rays are obtained. My interpretation reveals chronic changes with no acute fracture. Radiology interpretation is reviewed. Test results discussed with the patient. She is advised as her tetanus shot is up-to-date in the last 5 years. She will be discharged home. HPI History of Present Illness Chief Complaint: Fall Narrative Narrative: Patient presenting due to a mechanical fall that occurred this afternoon. She was at a restaurant for lunch and was walking from the parking lot out to her car when she tripped over the curb and landed on her face. She reports pain to her head, face, and right knee. She denies any loss of consciousness, she is not on any blood thinners. Tetanus is up-to-date. [facility] Medical History Acute respiratory failure with hypoxia Asthma exacerbation Asthmatic bronchitis , chronic Bilateral SubmassivePE Bronchiectasis Chest pain Chronotropic incompetence with sinus node dysfunction Cough Dizziness Dyspnea Essential hypertension GERD (gastroesophageal reflux disease) History of non-ST elevation myocardial infarction (NSTEMI) Hypothyroidism PND (post-nasal drip) Presence of cardiac pacemaker (~05/29/21) Pulmonary nodule Retinal detachment Sick sinus syndrome Sinus bradycardia Thrush, oral Home Medications acetaminophen 325 mg tablet 650 mg PO QHS pain 11/17/16 [History Last Taken 11/16/16] baclofen 10 mg tablet 5 mg PO BID muscle relaxer 11/17/16 [History Last Taken 11/16/16] cyanocobalamin (vitamin B-12) 1,000 mcg tablet 1,000 mcg PO DAILY vitamin 11/17/16 [History Last Taken 11/16/16] multivitamin 1 tab PO DAILY vitamin 11/17/16 [History Last Taken 11/16/16] paroxetine HCl 10 mg tablet 40 mg PO DAILY mental health 11/17/16 [History Last Taken 05/29/21] polyethylene glycol 3350 17 gram oral powder packet 17 gm PO DAILY constipation 05/27/17 [History Last Taken Unknown] aspirin 81 mg tablet,delayed release 81 mg PO DAILY@0800 heart health 11/27/17 [History Last Taken Unknown] lamotrigine 25 mg tablet,extended release 24 hr 25 mg PO DAILY 11/27/17 [History Last Taken Unknown] meloxicam 15 mg tablet 15 mg PO DAILY arthritis 11/27/17 [History Last Taken Unknown] loratadine 10 mg tablet (Claritin) 10 mg PO DAILY allergies 12/27/20 [History Last Taken Unknown] albuterol sulfate 2.5 mg/3 mL (0.083 %) solution for nebulization 2.5 mg inhalation Q4H PRN Sob &/Or Wheezing 01/10/21 [History Last Taken 05/29/21] amlodipine 5 mg tablet 5 mg PO DAILY blood pressure 01/10/21 [History Last Taken 05/29/21] bisacodyl 5 mg tablet,delayed release (Dulcolax (bisacodyl)) 5 mg PO ONCE PRN Constipation 01/10/21 [History Last Taken Unknown] brimonidine 0.2 %-timolol 0.5 % eye drops (Combigan) 1 drp ophthalmic (eye) BID eye health 01/10/21 [History Last Taken Unknown] ketotifen fumarate 0.025 % (0.035 %) eye drops 1 drp ophthalmic (eye) BID eye health 01/10/21 [History Last Taken Unknown] latanoprost 0.005 % eye drops, emulsion 1 drp ophthalmic (eye) QPM eye health 01/10/21 [History Last Taken Unknown] levothyroxine 88 mcg tablet 88 mcg PO .COMPLEX thyroid 01/10/21 [History Last T aken 05/29/21] lisinopril 40 mg tablet 40 mg PO DAILY blood pressure 01/10/21 [History Last Taken Unknown] lorazepam 1 mg tablet 2 mg PO QHS anxiety 01/10/21 [History Last Taken Unknown] pantoprazole 20 mg tablet,delayed release 40 mg PO DAILY reflux 01/10/21 [History Last Taken 05/29/21] vibegron 75 mg tablet (Gemtesa) 75 mg PO DAILY 08/07/21 [History Last Taken Unknown] albuterol sulfate 90 mcg/actuation aerosol inhaler 1 - 2 puff inhalation Q4H PRN PRN Shortness Of Breath #18 grams 02/11/22 [Rx Last Taken Unknown] ascorbic acid (vitamin C) 250 mg tablet 250 mg PO BID 08/19/22 [History Last Taken Unknown] d-mannose ea PO 08/19/22 [History Last Taken Unknown] lactobacillus combination no.9 4 billion cell capsule (Adult 50 Plus Probiotic) 4,000 mmu cells PO DAILY 08/19/22 [History Last Taken Unknown] conjugated estrogens 0.625 mg/gram vaginal cream 0.625 mg vaginal ONCE 09/10/22 [History Last Taken Unknown] ergocalciferol (vitamin D2) 1,250 mcg (50,000 unit) capsule 50,000 unit PO QMON TH vitamin 09/10/22 [History Last Taken Unknown] fluticasone furoate 100 mcg-vilanterol 25 mcg/dose inhalation powder (Breo Ellipta) 1 inh inhalation DAILY #60 ea 01/09/23 [Rx Last Taken Unknown] Allergy/AdvReac Type Severity Reaction Status Date / Time ciprofloxacin [From Cipro] Allergy Itching Verified 05/18/23 14:17 diphenhydramine Allergy Rash Verified 05/18/23 14:17 [From Benadryl] Penicillins Allergy Hives Verified 05/18/23 14:17 shellfish derived Allergy Anaphylaxis Verified 05/18/23 14:17 Sulfa (Sulfonamide Allergy Upset Verified 05/18/23 14:17 Antibiotics) Stomach tiotropium Allergy Other Verified 05/18/23 14:17 [From Spiriva with HandiHaler] ketamine AdvReac hallucinati Verified 05/18/23 14:17 ons Family History Mother Breast cancer Colon cancer Father Cancer Lung Grandmother Breast cancer CVA (cerebral vascular accident) Surgical History History of bladder suspension procedure History of bronchoscopy History of cataract extraction History of cholecystectomy History of hysterectomy History of tonsillectomy Social History Smoking Status: Former smoker Tobacco: How many years used: 10 second hand exposure: No alcohol intake: current details: occasional substance use type: does not use caffeine: Yes Type: coffee what type of physical activity do you participate in: other seatbelt use: always do you feel safe at home: Yes ROS ROS ED Constitutional Constitutional ED: Denies chills or fever(s) Cardiovascular Cardiovascular: Denies chest pain Respiratory/Chest Respiratory/Chest: Denies cough or dyspnea Gastrointestinal Gastrointestinal: Denies abdominal pain, nausea or vomiting Musculoskeletal Musculoskeletal: Reports arthralgias; Denies myalgias Integumentary Reports Abrasions Neurologic Neurologic: Reports headache(s); Denies confusion, dizziness or weakness EXAM Physical Exam Const Vital Signs: 05/18/23 14:17 05/18/23 14:19 Temperature 96.3 F L Temperature Source Temporal Pulse Rate 60 Respiratory Rate 14 Respiratory Effort Non-Labored Blood Pressure 140/78 H Blood Pressure Mean 98 Pulse Ox 96 98 Oxygen Delivery Method Room Air Room Air Positive well nourished, well developed and no apparent distress General Appearance ED: well developed HEENT Reports normocephalic HEENT Narrative: Large abrasion to the forehead, forehead hematoma, abrasion to the bridge of the nose, tenderness to palpation to the left superior orbital bones Mouth ED: Yes moist mucous membranes normal Eyes PERRL and EOMs intact bilaterally Neck full ROM and supple Chest Wall inspection of chest normal Resp normal respiratory effort and clear to auscultation bilaterally Cardio regular rate and regular rhythm GI soft to palpation, non-tender, non-distended and no masses Back/Spine normal ROM and normal to inspection Extremity normal to inspection Extremity Narrative: Edema and decreased range of motion to the right knee, pain to palpation to the right knee, abrasion to the right knee Neuro oriented x3, CN's II-XII intact bilaterally, moves all extremities, no focal motor deficits and no sensory deficits noted Sensorium / Orientation: awake and alert Psych mental status grossly normal and thought process normal MDM MDM MDM Narrative Medical decision making narrative: Patient presenting today due to a mechanical fall that occurred this afternoon when she was at lunch with a few friends. She tripped over a curb in the parking lot walking to her car. She landed on her face. She does have multiple abrasions to her face, her tetanus is up-to-date. She also injured her right knee which is edematous. CT of the face, head, neck will be obtained to rule out facial fracture, intracranial bleed, and cervical fracture. X-ray of the right knee will be obtained to rule out fracture. All imaging is negative for any acute changes. She has been given a Tony wrap for her right knee. She will be discharged home in stable condition and is comfortable with plan. She has been given RICE instructions. She is to ice her face and her knee several times a day for the next few days and take Tylenol for pain as needed. She is to follow-up with her PCP. She did report having a headache and I offered her Tylenol but she declines stating that she will take this at home. Radiography Diagnostic Testing: Clinical Impression(s) from Imaging Studies Brain CT 05/18/23 14:35 IMPRESSION: Chronic involutional changes of the brain. Electronically Signed: Km George MD at 15:57 EDT , Cervical Spine CT 05/18/23 14:35 IMPRESSION: 1. No evidence of acute cervical spinal fracture or spondylolisthesis. 2. Degenerative changes unchanged. Electronically Signed: Stephane Melendez MD at 16:17 EDT , Facial/Sinus 05/18/23 14:35 IMPRESSION: Small mucosal polyp or retention cyst at the base of the right maxillary sinus. Electronically Signed: Km George MD at 15:58 EDT , Knee X-Ray 05/18/23 15:35 IMPRESSION: Prepatellar soft tissue swelling. Electronically Signed: Km George MD at 15:52 EDT , Discharge Plan Triage Chief Complaint: Fall ED Midlevel Provider: Chantelle Gilbert ED Provider: Janett Her Dx/Rx/DC Orders Clinical Impression: Contusion of face, Head injury, Fall, Contusion of knee Instructions: ED Facial Contusion, ED Head Injury (Adult) Prescriptions: No Action albuterol sulfate 2.5 mg /3 mL (0.083 %) solution for nebulization 2.5 mg INHALATION Q4H PRN (Reason: Sob &/Or Wheezing) amlodipine 5 mg tablet 5 mg PO DAILY Combigan 0.2-0.5 % drops 1 drp ophthalmic (eye) BID bisacodyl [Dulcolax (bisacodyl)] 5 mg tablet,delayed release (DR/EC) 5 mg PO ONCE PRN (Reason: Constipation) ketotifen fumarate 0.025 % (0.035 %) drops 1 drp ophthalmic (eye) BID Rx Instructions: administer at least 8 hours apart latanoprost 0.005 % drops, emulsion 1 drp ophthalmic (eye) QPM lisinopril 40 mg tablet 40 mg PO DAILY pantoprazole 20 mg tablet,delayed release (DR/EC) 40 mg PO DAILY loratadine [Claritin] 10 mg tablet 10 mg PO DAILY Gemtesa 75 mg tablet 75 mg PO DAILY albuterol sulfate 90 mcg/actuation HFA aerosol inhaler 1 - 2 puff INHALATION Q4H PRN PRN (Reason: Shortness Of Breath) Qty: 18 6RF ascorbic acid (vitamin C) 250 mg tablet 250 mg PO BID d-mannose Powder PO Adult 50 Plus Probiotic 4 billion cell capsule 4,000 mmu cells PO DAILY Rx Instructions: administer with a meal conjugated estrogens 0.625 mg/gram cream 0.625 mg vaginal ONCE Rx Instructions: Three times a week multivitamin 1 EACH tablet 1 tab PO DAILY Patient Comments: supplement acetaminophen 325 MG tablet 650 mg PO QHS Patient Comments: pain paroxetine HCl 10 MG tablet 40 mg PO DAILY Patient Comments: anxiety/depression cyanocobalamin (vitamin B-12) 1,000 MCG tablet 1,000 mcg PO DAILY Patient Comments: supplement baclofen 10 MG tablet 5 mg PO BID Patient Comments: muscle spasms levothyroxine 88 mcg tablet 88 mcg PO .COMPLEX Patient Comments: hypothyroidism Rx Instructions: 88 mcg PO MOTUWETHFRSA; lorazepam 1 mg tablet 2 mg PO QHS Patient Comments: anxiety/sleep ergocalciferol (vitamin D2) 1,250 mcg (50,000 unit) capsule 50,000 unit PO QMONTH Patient Comments: polyethylene glycol 3350 17 GM packet 17 gm PO DAILY meloxicam 15 MG tablet 15 mg PO DAILY aspirin 81 MG tablet 81 mg PO DAILY@0800 lamotrigine 25 MG tablet extended release 24hr 25 mg PO DAILY fluticasone furoate-vilanterol [Breo Ellipta] 100-25 mcg/dose blister with device 1 inh inhalation DAILY Qty: 60 6RF Primary Care Provider: Ken Contreras Referrals: Ken Contreras MD [Primary Care Provider] - 3-5 Days Activity Restrictions/Additional Instructions: Please follow-up with your PCP return for any worsening of your symptoms. Ice your face and knee a few times a day for the next few days, you can take Tylenol for pain as needed. Disposition Disposition: Home, Self Care
--- NOTE | 2023-05-18 15:07 | CM.ED ---
Social Work SW performed chart review; LW and HCPOA documents on file as of 2016. Patient's HCPOA is Aleah Tilley, alternates are Mickie Dill and Pablo Edwards. Nikia PRABHAKAR, BRE
--- NOTE | 2023-05-18 15:35 | RAD_ITS ---
STUDY: X-RAY - RIGHT KNEE REASON FOR EXAM: Female, 88 years old. Injury TECHNIQUE: 3 view(s) of the knee. COMPARISON: None. FINDINGS: Normal visualized distal femur. Normal visualized proximal tibia and fibula. Normal proximal tibiofibular articulation. Normal medial femorotibial compartment. Normal lateral femorotibial compartment. Normal patellofemoral articulation. Prepatellar soft tissue swelling. RAD/Knee 3 Views IMPRESSION: Prepatellar soft tissue swelling. Electronically Signed: Km George MD at 15:52 EDT ,
[2023-05-18 17:33] VITALS: BP 141/76; PULSE 98; RESP 14; O2SAT 98
== END 2023-05-18 17:34 | disposition home or self-care (01) ==
PROVIDERS: Emergency Provider Emergency Medicine; PCP Internal Medicine; Visit Provider Emergency Medicine
DX: S00.83XA Contusion of other part of head, initial encounter (principal); S80.01XA Contusion of right knee, initial encounter; I25.2 Old myocardial infarction; Z95.0 Presence of cardiac pacemaker; Z87.891 Personal history of nicotine dependence; Y92.481 Parking lot as the place of occurrence of the external cause; W19.XXXA Unspecified fall, initial encounter
CPT/HCPCS: 70450; 70486; 72125; 73562; 99284

== ENCOUNTER 2023-05-27 17:19 | Emergency (ER) | payer MEDICARE, BC, SELFPAY ==
[2023-05-27 17:19] VITALS: BP 138/65; PULSE 59; RESP 16; TEMP 36.4; O2SAT 97; BMI 32.0
--- NOTE | 2023-05-27 18:20 | RAD_ITS ---
INDICATION: pain, trauma EXAMINATION/TECHNIQUE: X-RAY - RIGHT XR Tibia/Fibula 2 Views 3 VIEWS COMPARISON: FINDINGS: No acute fracture or dislocation. No destructive bone changes. Joint spaces are well-maintained. Normal alignment. Soft tissues are unremarkable. No radiopaque foreign body or soft tissue gas. RAD/Tibia & Fibula 2 Views IMPRESSION: Negative. Electronically Signed: Laurence Chan MD at 19:32 EDT Reading Location ID and State: [id number] / Tel , Service support ,
--- NOTE | 2023-05-27 18:24 | US_ITS ---
EXAM: US DUPLEX RIGHT LOWER EXTREMITY VEINS CLINICAL INDICATION: RT KNEE PAIN AND SWELLING/ S/P FALL TECHNIQUE: Real-time duplex ultrasound scan of the right lower extremity veins integrating B-mode two-dimensional vascular structure, Doppler spectral analysis, color flow Doppler imaging and compression. COMPARISON: No relevant prior studies available. FINDINGS: DEEP VEINS: Unremarkable. No DVT in the visualized common femoral, femoral, proximal deep femoral or popliteal veins. The veins demonstrate normal color flow, are normally compressible, with normal phasic flow and/or augmentation response. SUPERFICIAL VEINS: Unremarkable. No thrombus in the visualized great saphenous vein. SOFT TISSUES: No acute findings. No popliteal cyst. US/Venous Duplex Imag/Limited/Uni IMPRESSION: Normal right lower extremity duplex venous ultrasound. Electronically Signed: Laurence Chan MD at 19:42 EDT Reading Location ID and State: [id number] / Tel , Service support ,
--- NOTE | 2023-05-27 18:30 | RAD_ITS ---
INDICATION: pain, trauma EXAMINATION/TECHNIQUE: X-RAY - RIGHT XR Knee Complete 4 Views or More 4 VIEWS COMPARISON: 05/18/2023. FINDINGS: No acute fracture or dislocation. No destructive bone changes. Joint spaces are well-maintained. Normal alignment. Moderate anterior soft tissue swelling. This is decreased compared to the prior study. No radiopaque foreign body or soft tissue gas. RAD/Knee 4 or More Views IMPRESSION: Soft tissue swelling. No acute osseous abnormality. Electronically Signed: Laurence Chan MD at 19:36 EDT Reading Location ID and State: [id number] / Tel , Service support ,
--- NOTE | 2023-05-27 19:09 | ED.VIS.LOWEX ---
HPI History of Present Illness Chief Complaint: Lower Extremity Injury Informant: patient Narrative Narrative: Patient is an 88-year-old female presenting for continued pain of her right lower extremity. Patient had a fall on 05/18 and suffered contusions to her face as well as injury to her right knee. She was evaluated in the ER that time and did have x-rays of her knee which were negative. She notes she has had continued pain, bruising and swelling of the leg. It actually got worse a couple days after her initial injury which was concerning to her. Pain is worse when she tries to weight-bear or ambulate. Denies any fever chills. Nausea chest pain or shortness of breath. Denies any numbness or tingling. She notes that she is having fullness and tightness in her right lower leg. The bruising seems to getting worse going down her hayes and she continues to have a lot of pain just inferior to her right knee. She does have a history of pulmonary emboli but is not currently on any coagulation. No other complaints or concerns at this time. Has been taking Tylenol for pain. Declines anything stronger for pain at this time. Patient reports she does have a history of venous stasis of her lower extremities. [facility] Medical History Acute respiratory failure with hypoxia Asthma exacerbation Asthmatic bronchitis , chronic Bilateral SubmassivePE Bronchiectasis Chest pain Chronotropic incompetence with sinus node dysfunction Cough Dizziness Dyspnea Essential hypertension GERD (gastroesophageal reflux disease) History of non-ST elevation myocardial infarction (NSTEMI) Hypothyroidism PND (post-nasal drip) Presence of cardiac pacemaker (~05/29/21) Pulmonary nodule Retinal detachment Sick sinus syndrome Sinus bradycardia Thrush, oral Home Medications acetaminophen 325 mg tablet 650 mg PO QHS pain 11/17/16 [History Last Taken 11/16/16] baclofen 10 mg tablet 5 mg PO BID muscle relaxer 11/17/16 [History Last Taken 11/16/16] cyanocobalamin (vitamin B-12) 1,000 mcg tablet 1,000 mcg PO DAILY vitamin 11/17/16 [History Last Taken 11/16/16] multivitamin 1 tab PO DAILY vitamin 11/17/16 [History Last Taken 11/16/16] paroxetine HCl 10 mg tablet 40 mg PO DAILY mental health 11/17/16 [History Last Taken 05/29/21] polyethylene glycol 3350 17 gram oral powder packet 17 gm PO DAILY constipation 05/27/17 [History Last Taken Unknown] aspirin 81 mg tablet,delayed release 81 mg PO DAILY@0800 heart health 11/27/17 [History Last Taken Unknown] lamotrigine 25 mg tablet,extended release 24 hr 25 mg PO DAILY 11/27/17 [History Last Taken Unknown] meloxicam 15 mg tablet 15 mg PO DAILY arthritis 11/27/17 [History Last Taken Unknown] loratadine 10 mg tablet (Claritin) 10 mg PO DAILY allergies 12/27/20 [History Last Taken Unknown] albuterol sulfate 2.5 mg/3 mL (0.083 %) solution for nebulization 2.5 mg inhalation Q4H PRN Sob &/Or Wheezing 01/10/21 [History Last Taken 05/29/21] amlodipine 5 mg tablet 5 mg PO DAILY blood pressure 01/10/21 [History Last Taken 05/29/21] bisacodyl 5 mg tablet,delayed release (Dulcolax (bisacodyl)) 5 mg PO ONCE PRN Constipation 01/10/21 [History Last Taken Unknown] brimonidine 0.2 %-timolol 0.5 % eye drops (Combigan) 1 drp ophthalmic (eye) BID eye health 01/10/21 [History Last Taken Unknown] ketotifen fumarate 0.025 % (0.035 %) eye drops 1 drp ophthalmic (eye) BID eye health 01/10/21 [History Last Taken Unknown] latanoprost 0.005 % eye drops, emulsion 1 drp ophthalmic (eye) QPM eye health 01/10/21 [History Last Taken Unknown] levothyroxine 88 mcg tablet 88 mcg PO .COMPLEX thyroid 01/10/21 [History Last Taken 05/29/21] lisinopril 40 mg tablet 40 mg PO DAILY blood pressure 01/10/21 [History Last Taken Unknown] lorazepam 1 mg tablet 2 mg PO QHS anxiety 01/10/21 [History Last Taken Unknown] pantoprazole 20 mg tablet,delayed release 40 mg PO DAILY reflux 01/10/21 [History Last Taken 05/29/21] vibegron 75 mg tablet (Gemtesa) 75 mg PO DAILY 08/07/21 [History Last Taken Unknown] albuterol sulfate 90 mcg/actuation aerosol inhaler 1 - 2 puff inhalation Q4H PRN PRN Shortness Of Breath #18 grams 02/11/22 [Rx Last Taken Unknown] ascorbic acid (vitamin C) 250 mg tablet 250 mg PO BID 08/19/22 [History Last Taken Unknown] d-mannose ea PO 08/19/22 [History Last Taken Unknown] lactobacillus combination no.9 4 billion cell capsule (Adult 50 Plus Probiotic) 4,000 mmu cells PO DAILY 08/19/22 [History Last Taken Unknown] conjugated estrogens 0.625 mg/gram vaginal cream 0.625 mg vaginal ONCE 09/10/22 [History Last Taken Unknown] ergocalciferol (vitamin D2) 1,250 mcg (50,000 unit) capsule 50,000 unit PO QMONTH vitamin 09/10/22 [History Last Taken Unknown] fluticasone furoate 100 mcg-vilanterol 25 mcg/dose inhalation powder (Breo Ellipta) 1 inh inhalation DAILY #60 ea 01/09/23 [Rx Last Taken Unknown] Allergy/AdvReac Type Severity Reaction Status Date / Time ciprofloxacin [From Cipro] Allergy Itching Verified 05/27/23 17:19 diphenhydramine Allergy Rash Verified 05/27/23 17:19 [From Benadryl] Penicillins Allergy Hives Verified 05/27/23 17:19 shellfish derived Allergy Anaphylaxis Verified 05/27/23 17:19 Sulfa (Sulfonamide Allergy Upset Verified 05/27/23 17:19 Antibiotics) Stomach tiotropium Allergy Other Verified 05/27/23 17:19 [From Spiriva with HandiHaler] ketamine AdvReac hallucinati Verified 05/27/23 17:19 ons Family History Mother Breast cancer Colon cancer Father Cancer Lung Grandmother Breast cancer CVA (cerebral vascular accident) Surgical History History of bladder suspension procedure History of bronchoscopy History of cataract extraction History of cholecystectomy History of hysterectomy History of tonsillectomy Social History Smoking Status: Former smoker Tobacco: How many years used: 10 second hand exposure: No alcohol intake: current details: occasional substance use type: does not use caffeine: Yes Type: coffee what type of physical activity do you participate in: other seatbelt use: always do you feel safe at home: Yes ROS ROS ED Constitutional Constitutional ED: Denies chills or fever(s) Eyes Eyes: Denies blurry vision Cardiovascular Cardiovascular: Denies chest pain Respiratory/Chest Respiratory/Chest: Denies cough or dyspnea Gastrointestinal Gastrointestinal: Denies nausea or vomiting Musculoskeletal Musculoskeletal: Reports other Details: Right knee and lower leg pain Integumentary Reports other Details: Bruising and swelling to the right lower leg Neurologic Neurologic: Denies headache(s), paresthesias or weakness Hematologic/Lymphatic Hematologic/Lymphatic: Denies easy bleeding or easy bruising EXAM Physical Exam Const Vital Signs: 05/27/23 17:19 Temperature 97.5 F L Temperature Source Temporal Pulse Rate 59 L Respiratory Rate 16 Blood Pressure 138/65 H Blood Pressure Mean 89 Pulse Ox 97 Positive well nourished and well developed General Appearance ED: well developed and NAD HEENT Reports moist mucous membranes HEENT Narrative: Healing ecchymosis throughout the face Eyes Eyes Narrative: Irregular shaped left pupil?chronic per patient/EOMI Neck full ROM and supple Chest Wall inspection of chest normal and palpation of chest normal Resp normal respiratory effort and clear to auscultation bilaterally Cardio regular rate, regular rhythm and no murmurs Cardio Narrative: 2+ DP pulses GI non-tender and non-distended Extremity full ROM Extremity Narrative: Tenderness palpation of the anterior/inferior right knee. No obvious deformity. There is a diffuse ecchymosis and healing abrasion to the knee and ecchymosis does extend along the anterior aspect of the hayes. Does not go past the ankle. Patient does have some asymmetric edema that is pitting of the right lower extremity. Compartments however are soft. No palpable cords. Normal extensor mechanism. Range of motion of the knee preserved. Neuro oriented x3, moves all extremities and no sensory deficits noted Sensorium / Orientation: alert Psych mental status grossly normal Skin Skin Narrative: Ecchymosis and warmth of the right anterior knee and hayes MDM MDM MDM Narrative Medical decision making narrative: Patient is evaluated for increased/continued pain as well as worsening bruising and swelling of her right lower extremity. This is in the setting of a trauma 9 days ago. Patient peers nontoxic. She has no systemic symptoms. Differential includes occult fracture, dependent edema/ecchymosis, hematoma and posttraumatic DVT. Repeat x-ray of the knee as well as additional x-ray of the tib/fib reviewed by myself as well as radiology do not show any acute fracture. Given that she still has a normal x-ray 9 days out I have a low suspicion for an occult tibial plateau fracture especially as she has been able to bear weight. I do not think she requires a CT of her lower extremity at this time. Venous duplex is negative. Patient counseled that a lot of her pain and swelling is likely just dependent and from overuse. She is counseled to start wearing compression stocking/Tony wrap for the leg again and elevate and ice. She declines anything for pain in the ER and states the Tylenol she has at home is sufficient. She has good distal pulses. I do not think she requires emergent orthopedic consult or for overnight observation. She still able to function at home. Her brother is at the bedside whom she lives with and is able to help her around the house. Patient is given return precautions. Discharged home in stable condition. She verbalizes agreement and understanding this plan. Radiography Diagnostic Testing: Clinical Impression(s) from Imaging Studies Tibia/Fibula X-Ray 05/27/23 18:20 IMPRESSION: Negative. Electronically Signed: Laurence Chan MD at 19:32 EDT Reading Location ID and State: Miah Rodriguez MD Tel , Service support , Venous Duplex 05/27/23 18:24 IMPRESSION: Normal right lower extremity duplex venous ultrasound. Electronically Signed: Laurence Chan MD at 19:42 EDT Reading Location ID and State: Miah Rodriguez MD Tel , Service support , Knee X-Ray 05/27/23 18:30 IMPRESSION: Soft tissue swelling. No acute osseous abnormality. Electronically Signed: Laurence Chan MD at 19:36 EDT Reading Location ID and State: Miah Rodriguez MD Tel , Service support , Discharge Plan Triage Chief Complaint: Lower Extremity Injury ED Provider: Teri Lozano Dx/Rx/DC Orders Clinical Impression: Edema of right lower extremity, Traumatic ecchymosis of multiple sites of right lower extremity, Mechanical pain of right knee Instructions: ED Contusion, Lower Extremity, ED Peripheral Edema, Unilateral, ED RICE Prescriptions: No Action albuterol sulfate 2.5 mg /3 mL (0.083 %) solution for nebulization 2.5 mg INHALATION Q4H PRN (Reason: Sob &/Or Wheezing) amlodipine 5 mg tablet 5 mg PO DAILY Combigan 0.2-0.5 % drops 1 drp ophthalmic (eye) BID bisacodyl [Dulcolax (bisacodyl)] 5 mg tablet,delayed release (DR/EC) 5 mg PO ONCE PRN (Reason: Constipation) ketotifen fumarate 0.025 % (0.035 %) drops 1 drp ophthalmic (eye) BID Rx Instructions: administer at least 8 hours apart latanoprost 0.005 % drops, emulsion 1 drp ophthalmic (eye) QPM lisinopril 40 mg tablet 40 mg PO DAILY pantoprazole 20 mg tablet,delayed release (DR/EC) 40 mg PO DAILY loratadine [Claritin] 10 mg tablet 10 mg PO DAILY Gemtesa 75 mg tablet 75 mg PO DAILY albuterol sulfate 90 mcg/actuation HFA aerosol inhaler 1 - 2 puff INHALATION Q4H PRN PRN (Reason: Shortness Of Breath) Qty: 18 6RF ascorbic acid (vitamin C) 250 mg tablet 250 mg PO BID d-mannose Powder PO Adult 50 Plus Probiotic 4 billion cell capsule 4,000 mmu cells PO DAILY Rx Instructions: administer with a meal conjugated estrogens 0.625 mg/gram cream 0.625 mg vaginal ONCE Rx Instructions: Three times a week multivitamin 1 EACH tablet 1 tab PO DAILY Patient Comments: supplement acetaminophen 325 MG tablet 650 mg PO QHS Patient Comments: pain paroxetine HCl 10 MG tablet 40 mg PO DAILY Patient Comments: anxiety/depression cyanocobalamin (vitamin B-12) 1,000 MCG tablet 1,000 mcg PO DAILY Patient Comments: supplement baclofen 10 MG tablet 5 mg PO BID Patient Comments: muscle spasms levothyroxine 88 mcg tablet 88 mcg PO .COMPLEX Patient Comments: hypothyroidism Rx Instructions: 88 mcg PO MOTUWETHFRSA; lorazepam 1 mg tablet 2 mg PO QHS Patient Comments: anxiety/sleep ergocalciferol (vitamin D2) 1,250 mcg (50,000 unit) capsule 50,000 unit PO QMONTH Patient Comments: polyethylene glycol 3350 17 GM packet 17 gm PO DAILY meloxicam 15 MG tablet 15 mg PO DAILY aspirin 81 MG tablet 81 mg PO DAILY@0800 lamotrigine 25 MG tablet extended release 24hr 25 mg PO DAILY fluticasone furoate-vilanterol [Breo Ellipta] 100-25 mcg/dose blister with device 1 inh inhalation DAILY Qty: 60 6RF Primary Care Provider: Ken Contreras Referrals: Mikel Cartagena MD [Med Staff - Active Staff] - As Needed Ken Contreras MD [Primary Care Provider] - Activity Restrictions/Additional Instructions: You do not have a blood clot or further fracture on your work-up today. I suspect your swelling is more from the movement of fluid from gravity. Elevating your leg and wearing a compression stocking or Tony wrap will help with this. Continue to ice. Try to take it easy. Follow-up with your primary care doctor. To begin information for outpatient orthopedics if you would like to be seen by an orthopedist. Disposition Disposition: Home, Self Care Discharge Date/Time: 05/27/23 20:14
== END 2023-05-27 20:14 | disposition home or self-care (01) ==
PROVIDERS: Emergency Provider Emergency Medicine; PCP Internal Medicine; Visit Provider Emergency Medicine
DX: S80.11XA Contusion of right lower leg, initial encounter (principal); Z87.891 Personal history of nicotine dependence; R60.0 Localized edema; I10 Essential (primary) hypertension; J45.909 Unspecified asthma, uncomplicated; X50.9XXA Other and unspecified overexertion or strenuous movements or postures, initial encounter
CPT/HCPCS: 73564; 73590; 93971; 99282

== ENCOUNTER 2023-10-02 18:49 | Emergency (ER) | payer MEDICARE, BC, SELFPAY ==
[2023-10-02 18:51] VITALS: BP 143/75; PULSE 61; RESP 14; TEMP 36.6; O2SAT 97
--- NOTE | 2023-10-02 19:25 | CT_ITS ---
STUDY: CT CERVICAL SPINE WITHOUT CONTRAST REASON FOR EXAM: Female, 88 years old. trauma RADIATION DOSAGE (If Supplied By Facility): CTDIvol = ( 14.83 ) mGy, DLP = ( 256.36 ) mGycm TECHNIQUE: High resolution transaxial imaging was performed without contrast material. Sagittal and coronal images were reconstructed. Individualized dose optimization techniques were used for this CT. COMPARISON: 05/18/2023. FINDINGS: Normal craniovertebral junction. There are degenerative changes of the anterior atlantoaxial articulation. Normal odontoid process. There is straightening of the normal cervical lordosis. Mild multilevel endplate spondylosis with narrowing of disc height at C2-C3 and C5-C6. Remainder of the disc height is well-preserved. Otherwise normal vertebral bodies and posterior osseous elements. C2-3: Mild spondylosis with narrowing of disc height. Mild to moderate bilateral apophyseal hypertrophy. Normal central canal and intervertebral neuroforamina. C3-4: Mild spondylosis with well-preserved disc height. Mild to moderate bilateral apophyseal hypertrophy. No central canal stenosis. No neural foraminal encroachment. C4-5: Mild spondylosis with well-preserved disc height. Mild to moderate bilateral apophyseal hypertrophy. No central canal stenosis. No neural foraminal encroachment. C5-6: Mild spondylosis with narrowing of disc height and mild disc osteophyte complex. Mild to moderate bilateral apophyseal hypertrophy. No central canal stenosis. No neural foraminal encroachment. C6-7: Mild spondylosis with well-preserved disc height. Mild to moderate bilateral apophyseal hypertrophy. No central canal stenosis. No neural foraminal encroachment. C7-T1: Mild spondylosis with well-preserved disc height. Mild to moderate bilateral apophyseal hypertrophy. No central canal stenosis. No neural foraminal encroachment. Normal visualized soft tissue structures. CT/Spine Cervical without Contras IMPRESSION: Mild spondylosis/degenerative disease with no acute fracture or subluxation. Electronically Signed: Jonna Clark MD at 20:19 EST ,
--- NOTE | 2023-10-02 19:25 | CT_ITS ---
We are attempting to reach an attending provider to discuss findings. An addendum with communication details will be sent when the communication is complete. STUDY: CT BRAIN WITHOUT CONTRAST REASON FOR EXAM: Female, 88 years old. trauma RADIATION DOSAGE (If Supplied By Facility): CTDIvol = ( 44.99 ) mGy, DLP = ( 779.24 ) mGycm TECHNIQUE: Transaxial CT imaging of the brain was performed without administration of intravenous contrast material. Individualized dose optimization techniques were used for this CT. COMPARISON: 05/18/2023. FINDINGS: There is left posterolateral scalp hematoma extending from mid skull to the vertex and measuring approximately 1 cm in depth. Normal calvarium. There is mild cerebral atrophy with widening of the extra-axial spaces and ventricular dilatation. There are areas of decreased attenuation within the white matter tracts of the supratentorial brain, consistent with mild microvascular disease changes. Normal basal ganglia and thalami. Normal brainstem. Normal cerebellum. There are areas of serpiginous high attenuation involving the cortex through the bilateral sylvian fissures, several parietal and temporal lobes consistent with multifocal cortical subarachnoid hemorrhage. There are no findings of an acute ischemic infarction. There is mucosal thickening involving the right mastoid sinus consistent with sequela of sinusitis. CT/Brain/Head without Contrast IMPRESSION: Multiple bilateral parietal and frontoparietal cortical subarachnoid hemorrhage, with small focus within the right temporal lobe. No midline shift. Left posterior lateral scalp hematoma as described with no skull fracture. Electronically Signed: Jonna Clark MD at 20:13 EST ,
--- NOTE | 2023-10-02 19:26 | EX.ED.DYSGE1 ---
HPI History of Present Illness Chief Complaint: Head Injury Informant: patient Narrative Narrative: Patient states about 5 PM this evening she went down to get the mail. 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 She lost her footing and fell backwards in the street striking the back of her head. No loss of consciousness or laceration. She does take baby aspirin. She complains of a bandlike headache around her head. She did take Tylenol around 6 PM. [facility] Medical History Acute respiratory failure with hypoxia Asthma exacerbation Asthmatic bronchitis , chronic Bilateral SubmassivePE Bronchiectasis Chest pain Chronotropic incompetence with sinus node dysfunction Cough Dizziness Dyspnea Essential hypertension GERD (gastroesophageal reflux disease) History of non-ST elevation myocardial infarction (NSTEMI) Hypothyroidism PND (post-nasal drip) Presence of cardiac pacemaker (~05/29/21) Pulmonary nodule Retinal detachment Sick sinus syndrome Sinus bradycardia Thrush, oral Home Medications acetaminophen 325 mg tablet 650 mg PO QHS pain 11/17/16 [History Last Taken 11/16/16] baclofen 10 mg tablet 5 mg PO BID muscle relaxer 11/17/16 [History Last Taken 11/16/16] cyanocobalamin (vitamin B-12) 1,000 mcg tablet 1,000 mcg PO DAILY vitamin 11/17/16 [History Last Taken 11/16/16] multivitamin 1 tab PO DAILY vitamin 11/17/16 [History Last Taken 11/16/16] paroxetine HCl 10 mg tablet 40 mg PO DAILY mental health 11/17/16 [History Last Taken 05/29/21] polyethylene glycol 3350 17 gram oral powder packet 17 gm PO DAILY constipation 05/27/17 [History Last Taken Unknown] aspirin 81 mg tablet,delayed release 81 mg PO DAILY@0800 heart health 11/27/17 [History Last Taken Unknown] lamotrigine 25 mg tablet,extended release 24 hr 25 mg PO DAILY 11/27/17 [History Last Taken Unknown] meloxicam 15 mg tablet 15 mg PO DAILY arthritis 11/27/17 [History Last Taken Unknown] loratadine 10 mg tablet (Claritin) 10 mg PO DAILY allergies 12/27/20 [History Last Taken Unknown] albuterol sulfate 2.5 mg/3 mL (0.083 %) solution for nebulization 2.5 mg inhalation Q4H PRN Sob &/Or Wheezing 01/10/21 [History Last Taken 05/29/21] amlodipine 5 mg tablet 5 mg PO DAILY blood pressure 01/10/21 [History Last Taken 05/29/21] brimonidine 0.2 %-timolol 0.5 % eye drops (Combigan) 1 drp ophthalmic (eye) BID eye health 01/10/21 [History Last Taken Unknown] ketotifen fumarate 0.025 % (0.035 %) eye drops 1 drp ophthalmic (eye) BID eye health 01/10/21 [History Last Taken Unknown] latanoprost 0.005 % eye drops, emulsion 1 drp ophthalmic (eye) QPM eye health 01/10/21 [History Last Taken Unknown] levothyroxine 88 mcg tablet 88 mcg PO .COMPLEX thyroid 01/10/21 [History Last Taken 05/29/21] lisinopril 40 mg tablet 40 mg PO DAILY blood pressure 01/10/21 [History Last Taken Unknown] lorazepam 1 mg tablet 2 mg PO QHS anxiety 01/10/21 [History Last Taken Unknown] pantoprazole 20 mg tablet,delayed release 40 mg PO DAILY reflux 01/10/21 [History Last Taken 05/29/21] vibegron 75 mg tablet (Gemtesa) 75 mg PO DAILY 08/07/21 [History Last Taken Unknown] albuterol sulfate 90 mcg/actuation aerosol inhaler 1 - 2 puff inhalation Q4H PRN PRN Shortness Of Breath #18 grams 02/11/22 [Rx Last Taken Unknown] ascorbic acid (vitamin C) 250 mg tablet 250 mg PO BID 08/19/22 [History Last Taken Unknown] d-mannose ea PO 08/19/22 [History Last Taken Unknown] lactobacillus combination no.9 4 billion cell capsule (Adult 50 Plus Probiotic) 4,000 mmu cells PO DAILY 08/19/22 [History Last Taken Unknown] conjugated estrogens 0.625 mg/gram vaginal cream 0.625 mg vaginal ONCE 09/10/22 [History Last Taken Unknown] ergocalciferol (vitamin D2) 1,250 mcg (50,000 unit) capsule 50,000 unit PO QMONTH vitamin 09/10/22 [History Last Taken Unknown] fluticasone furoate 100 mcg-vilanterol 25 mcg/dose inhalation powder (Breo Ellipta) 1 inh inhalation DAILY #60 ea 01/09/23 [Rx Last Taken Unknown] Allergy/AdvReac Type Severity Reaction Status Date / Time ciprofloxacin [From Cipro] Allergy Itching Verified 10/02/23 18:50 diphenhydramine Allergy Rash Verified 10/02/23 18:50 [From Benadryl] Penicillins Allergy Hives Verified 10/02/23 18:50 shellfish derived Allergy Anaphylaxis Verified 10/02/23 18:50 Sulfa (Sulfonamide Allergy Upset Verified 10/02/23 18:50 Antibiotics) Stomach tiotropium Allergy Other Verified 10/02/23 18:50 [From Spiriva with HandiHaler] ketamine AdvReac hallucinati Verified 10/02/23 18:50 ons Family History Mother Breast cancer Colon cancer Father Cancer Lung Grandmother Breast cancer CVA (cerebral vascular accident) Surgical History History of bladder suspension procedure History of bronchoscopy History of cataract extraction History of cholecystectomy History of hysterectomy History of tonsillectomy Social History Smoking Status: Former smoker Tobacco: How many years used: 10 second hand exposure: No alcohol intake: current details: occasional substance use type: does not use caffeine: Yes Type: coffee what type of physical activity do you participate in: other seatbelt use: always do you feel safe at home: Yes ROS ROS ED Constitutional Constitutional ED: Denies chills or fever(s) Eyes Eyes: Denies discharge from eye(s) ENT ENT ED: Denies discharge from eye(s), rhinorrhea or sore throat Cardiovascular Cardiovascular: Denies chest pain Respiratory/Chest Respiratory/Chest: Denies cough or dyspnea Gastrointestinal Gastrointestinal: Denies abdominal pain, nausea or vomiting Genitourinary Genitourinary ED: Denies dysuria Musculoskeletal Musculoskeletal: Reports neck pain; Denies back pain or extremity pain Integumentary Denies Abrasions or rash Neurologic Neurologic: Reports headache(s); Denies weakness Psychiatric Psychiatric: Denies anxiety or depression Allergic/Immunologic Allergic/Immunologic ED: Denies lip swelling or urticaria EXAM Physical Exam Const Vital Signs: 10/02/23 18:51 10/02/23 19:07 10/02/23 20:30 Temperature 97.9 F Temperature Source Temporal Pulse Rate 61 60 Respiratory Rate 14 16 Respiratory Effort Normal Non-Labored Respiratory Depth Normal Respiratory Pattern Normal Blood Pressure 143/75 H 171/75 H Blood Pressure Mean 97 107 Pulse Ox 97 100 Oxygen Delivery Method Room Air Room Air Room Air 10/02/23 21:05 10/02/23 21:30 Temperature Temperature Source Pulse Rate 64 60 Respiratory Rate 20 H 15 Respiratory Effort Respiratory Depth Respiratory Pattern Blood Pressure 162/72 H 160/68 H Blood Pressure Mean 102 98 Pulse Ox 98 98 Oxygen Delivery Method Room Air Positive well nourished and well developed General Appearance ED: well developed HEENT Reports moist mucous membranes HEENT Narrative: Hematoma with scalp abrasion over the posterior left parietal scalp. Eyes EOMs intact bilaterally Chest Wall inspection of chest normal and palpation of chest normal Resp normal respiratory effort and clear to auscultation bilaterally Cardio regular rate and regular rhythm GI non-tender Palpation: soft Extremity normal to inspection Neuro oriented x3 and no sensory deficits noted Motor Exam: strength 5/5 throughout Psych mental status grossly normal Skin no rashes or lesions noted MDM MDM MDM Narrative Medical decision making narrative: Patient will be sent for CT scan of the brain and C-spine to evaluate for fracture, bleed, edema. History & Record Review Discussion w/independent historian: Patient and Family Lab Data Labs: Laboratory Results - last 24 hr 10/02/23 20:00 WBC 10.3 RBC 4.43 Hgb 12.9 Hct 41.3 MCV 93.2 MCH 29.1 MCHC 31.2 L RDW Std Deviation 48.6 H RDW Coeff of Dave 14.2 Plt Count 228 MPV 9.9 Immature Gran % (Auto) 0.700 Neut % (Auto) 65.9 Lymph % (Auto) 19.6 Bucks % (Auto) 9.4 Eos % (Auto) 3.9 Baso % (Auto) 0.5 Absolute Neuts (auto) 6.8 Absolute Lymphs (auto) 2.01 Nucleated RBC % 0 PT 12.8 INR 1.0 APTT 26.1 Sodium 138 Potassium 4.4 Chloride 107 Carbon Dioxide 29.0 Anion Gap 2 L BUN 23 H Creatinine 0.88 Est GFR (MDRD) Af Amer 78 Est GFR (MDRD) Non-Af 65 BUN/Creatinine Ratio 26.2 H Glucose 101 Calcium 9.5 Radiography Diagnostic Testing: Clinical Impression(s) from Imaging Studies Brain CT 10/02/23 19:25 IMPRESSION: Multiple bilateral parietal and frontoparietal cortical subarachnoid hemorrhage, with small focus within the right temporal lobe. No midline shift. Left posterior lateral scalp hematoma as described with no skull fracture. Electronically Signed: Jonna Clark MD at 20:13 EST , ADDENDUM: 10/02/232028 IMPRESSION: Multiple bilateral parietal and frontoparietal cortical subarachnoid hemorrhage, with small focus within the right temporal lobe. No midline shift. Left posterior lateral scalp hematoma as described with no skull fracture. N.B. : The above Results were Read Back by Jonna Clark MD to Janett Her MD, and understanding confirmed on 10/02/2023 20:23:03 (ET). Electronically Signed: Jonna Clark MD at 20:13 EST Reading Location ID and State: [id number] / [employer] , Service support , Cervical Spine CT 10/02/23 19:25 IMPRESSION: Mild spondylosis/degenerative disease with no acute fracture or subluxation. Electronically Signed: Jonna Clark MD at 20:19 EST , Treatment and Re-Evaluation :: I received a phone call from CT that the patient had evidence of a bleed on her head CT. On my review it appears she has a scalp hematoma with a subarachnoid hemorrhage. I do not see any obvious abnormalities on her CT C-spine, although read is still pending at this time. Test results are discussed with the patient. IV line is initiated and lab work ordered. We will contact [facility] for transfer. CBC returned with a white count of 10.3 with a hemoglobin of 12.9. Chemistry studies unremarkable. Coags are unremarkable. Formal read on CT brain reveals multiple bilateral parietal and frontal parietal cortical subarachnoid hemorrhage with small focus within the right temporal lobe. No midline shift. Left posterior lateral scalp hematoma with no skull fracture. CT of the C-spine reveals no evidence of fracture. Patient's systolic blood pressure did rise up into the 170s while here. She was given 10 mg of IV hydralazine for blood pressure control. Discharge Plan Triage Chief Complaint: Head Injury ED Provider: Janett Her Dx/Rx/DC Orders Clinical Impression: Subarachnoid hemorrhage, Hematoma of scalp, Fall Prescriptions: No Action albuterol sulfate 2.5 mg /3 mL (0.083 %) solution for nebulization 2.5 mg INHALATION Q4H PRN (Reason: Sob &/Or Wheezing) amlodipine 5 mg tablet 5 mg PO DAILY Combigan 0.2-0.5 % drops 1 drp ophthalmic (eye) BID ketotifen fumarate 0.025 % (0.035 %) drops 1 drp ophthalmic (eye) BID Rx Instructions: administer at least 8 hours apart latanoprost 0.005 % drops, emulsion 1 drp ophthalmic (eye) QPM lisinopril 40 mg tablet 40 mg PO DAILY pantoprazole 20 mg tablet,delayed release (DR/EC) 40 mg PO DAILY loratadine [Claritin] 10 mg tablet 10 mg PO DAILY Gemtesa 75 mg tablet 75 mg PO DAILY albuterol sulfate 90 mcg/actuation HFA aerosol inhaler 1 - 2 puff INHALATION Q4H PRN PRN (Reason: Shortness Of Breath) Qty: 18 6RF ascorbic acid (vitamin C) 250 mg tablet 250 mg PO BID d-mannose Powder PO Adult 50 Plus Probiotic 4 billion cell capsule 4,000 mmu cells PO DAILY Rx Instructions: administer with a meal conjugated estrogens 0.625 mg/gram cream 0.625 mg vaginal ONCE Rx Instructions: Three times a week multivitamin 1 EACH tablet 1 tab PO DAILY Patient Comments: supplement acetaminophen 325 MG tablet 650 mg PO QHS Patient Comments: pain paroxetine HCl 10 MG tablet 40 mg PO DAILY Patient Comments: anxiety/depression cyanocobalamin (vitamin B-12) 1,000 MCG tablet 1,000 mcg PO DAILY Patient Comments: supplement baclofen 10 MG tablet 5 mg PO BID Patient Comments: muscle spasms levothyroxine 88 mcg tablet 88 mcg PO .COMPLEX Patient Comments: hypothyroidism Rx Instructions: 88 mcg PO MOTUWETHFRSA; lorazepam 1 mg tablet 2 mg PO QHS Patient Comments: anxiety/sleep ergocalciferol (vitamin D2) 1,250 mcg (50,000 unit) capsule 50,000 unit PO QMONTH Patient Comments: polyethylene glycol 3350 17 GM packet 17 gm PO DAILY meloxicam 15 MG tablet 15 mg PO DAILY aspirin 81 MG tablet 81 mg PO DAILY@0800 lamotrigine 25 MG tablet extended release 24hr 25 mg PO DAILY fluticasone furoate-vilanterol [Breo Ellipta] 100-25 mcg/dose blister with device 1 inh inhalation DAILY Qty: 60 6RF Primary Care Provider: Ken Contreras Referrals: Ken Contreras MD [Primary Care Provider] - Disposition Disposition: Acute Care Hospital Discharge Location: [facility] Discharge Date/Time: 10/02/23 22:02
[2023-10-02 20:09] LABS: Absolute Lymphocyte Count 2.01 X10^3/uL (0.83-4.51); Absolute Neutrophil Count 6.8 X10^3/uL (2.0-7.7); Basophil# 0.05 X10^3/uL; Basophil% 0.5 % (0-1); Eosinophils% 3.9 % (0-5); Hematocrit 41.3 % (37-47); Hemoglobin 12.9 g/dL (12.0-15.0); Lymphocyte # 2.01 X10^3/ul (0.83-4.51); Lymphocyte % 19.6 % (19-41); Mean Corp Hgb Conc 31.2 g/dL (32-36); Mean Corpuscular Hgb 29.1 pg (27.0-32.0); Mean Corpuscular Volume 93.2 fL (81-99); Mean Platelet Vol. 9.9 fl (6.2-12.0); Monocyte# 0.96 X10^3/uL; Monocyte% 9.4 % (0-10); NRBC Flagged by Analyzer 0 % (0-5); Neutrophil # 6.77 X10^3/uL (2.7-7.7); Neutrophil % 65.9 % (47-70); Platelet Count 228 K/mm3 (150-450); RBC Distribution Width CV 14.2 % (11.6-14.6); RBC Distribution Width SD 48.6 fl (35.1-43.9); Red Blood Count 4.43 M/mm3 (4.2-5.4); White Blood Count 10.3 K/mm3 (4.4-11.0)
[2023-10-02 20:18] LABS: Prothrombin Time (Protime)PT. 12.8 SECONDS (11.7-14.9)
[2023-10-02 20:19] LABS: Partial Thromboplast Time 26.1 Seconds (24.1-36.2)
[2023-10-02 20:23] LABS: Anion Gap 2 (5-15); BUN 23 mg/dL (7-18); BUN/Creat Ratio 26.2 RATIO (10-20); Calcium,Total 9.5 mg/dL (8.5-10.1); Chloride 107 mmol/L (98-107); Creatinine, Serum 0.88 mg/dL (0.55-1.02); EST Glomerular Filtration Rate 65 mL/min (>60); Est Glom Filt Rate - Afr Amer 78 mL/min (>60); Glucose 101 mg/dL (74-106); Potassium 4.4 mmol/L (3.5-5.1); Sodium Level 138 mmol/L (136-145)
[2023-10-02 20:30] VITALS: BP 171/75; PULSE 60; RESP 16; O2SAT 100
[2023-10-02] MEDS: hydrALAZINE 20 MG/ML Vial 10 MG IV (20:32)
[2023-10-02 21:05] VITALS: BP 162/72; PULSE 64; RESP 20; O2SAT 98
--- NOTE | 2023-10-02 21:18 | ED.RN ---
[facility]TR[facility] PLACED DUE TO PT REQUIRED COMPLETE BEDREST
[2023-10-02 21:30] VITALS: BP 160/68; PULSE 60; RESP 15; O2SAT 98
== END 2023-10-02 22:02 | disposition short-term general hospital (02) ==
PROVIDERS: Emergency Provider Emergency Medicine; PCP Internal Medicine; Visit Provider Emergency Medicine
DX: S06.6X0A Traumatic subarachnoid hemorrhage without loss of consciousness, initial encounter (principal); S00.03XA Contusion of scalp, initial encounter; Z87.891 Personal history of nicotine dependence; I10 Essential (primary) hypertension; J45.909 Unspecified asthma, uncomplicated; W19.XXXA Unspecified fall, initial encounter; M47.812 Spondylosis without myelopathy or radiculopathy, cervical region
CPT/HCPCS: 51702; 70450; 72125; 80048; 85025; 85610; 85730; 96374; 99285; J7050; A4216

== ENCOUNTER → 2024-02-11 | Outpatient (CLI) | payer MEDICARE, BC, SELFPAY ==
[2024-02-11 15:59] LABS: Absolute Lymphocyte Count 2.03 X10^3/uL (0.83-4.51); Absolute Neutrophil Count 3.9 X10^3/uL (2.0-7.7); Basophil# 0.05 X10^3/uL; Basophil% 0.7 % (0-1); Eosinophils% 4.1 % (0-5); Hematocrit 38.4 % (37-47); Hemoglobin 11.8 g/dL (12.0-15.0); Lymphocyte # 2.03 X10^3/ul (0.83-4.51); Lymphocyte % 27.9 % (19-41); Mean Corp Hgb Conc 30.7 g/dL (32-36); Mean Corpuscular Hgb 29.3 pg (27.0-32.0); Mean Corpuscular Volume 95.3 fL (81-99); Mean Platelet Vol. 10.2 fl (6.2-12.0); Monocyte# 0.93 X10^3/uL; Monocyte% 12.8 % (0-10); NRBC Flagged by Analyzer 0 % (0-5); Neutrophil # 3.94 X10^3/uL (2.7-7.7); Neutrophil % 54.1 % (47-70); Platelet Count 239 K/mm3 (150-450); RBC Distribution Width SD 48.6 fl (35.1-43.9); Red Blood Count 4.03 M/mm3 (4.2-5.4); White Blood Count 7.3 K/mm3 (4.4-11.0)
[2024-02-11 16:43] LABS: Anion Gap 2 (5-15); BUN 22 mg/dL (7-18); BUN/Creat Ratio 22.4 RATIO (10-20); Calcium,Total 9.6 mg/dL (8.5-10.1); Chloride 107 mmol/L (98-107); Creatinine, Serum 0.98 mg/dL (0.55-1.02); EST Glomerular Filtration Rate 57 mL/min (>60); Est Glom Filt Rate - Afr Amer 69 mL/min (>60); Glucose 87 mg/dL (74-106); Potassium 4.6 mmol/L (3.5-5.1); Sodium Level 137 mmol/L (136-145)
== END | disposition home or self-care (01) ==
LOC: LAB 14:34
PROVIDERS: PCP Internal Medicine; Referring Provider Nurse Practitioner Gerontology; Visit Provider Nurse Practitioner Gerontology
DX: R53.83 Other fatigue (principal)
CPT/HCPCS: 36415; 80048; 84443; 85025

== ENCOUNTER → 2024-02-25 | Outpatient (CLI) | payer MEDICARE, BC, SELFPAY ==
--- NOTE | 2024-02-25 09:47 | CDU_ITS ---
Reason For Study: DIZZINESS Rt. Velocities/BP Lt. Velocities/BP Prox CCA 51.1/6.6 cm/sec. Prox CCA 77.1/17.6 cm/sec. Mid CCA 62.5/16.2 cm/sec. Mid CCA 82.8/24.2 cm/sec. Dist CCA 52.9/9.2 cm/sec. Dist CCA 72.4/20.4 cm/sec. Prox ICA 49.4/11.9 cm/sec. Prox ICA 52.3/11.3 cm/sec. Mid ICA 59.9/17.6 cm/sec. Mid ICA 77.6/29.2 cm/sec. Dist ICA 69.5/21.6 cm/sec. Dist ICA 75.4/24.8 cm/sec. Rt. ICA/CCA = 69.5/62.5=1.1. Lt. ICA/CCA = 77.6/82.8=0.9. Prox ECA 57.2/8.4 cm/sec. Prox ECA 48.7/5.3 cm/sec. Rt. Vert. 35.8/10.3 cm/sec. Lt. Vert. 45.7/17.1 cm/sec. Right Extracranial There is homogeneous, smooth atherosclerotic plaque noted in the right common carotid artery. There is heterogeneous, irregular atherosclerotic plaque noted in the right internal carotid artery. There is heterogeneous, smooth atherosclerotic plaque noted in the right external carotid artery. Antegrade flow is noted in the right vertebral artery. Left Extracranial There is intimal thickening but no significant atherosclerotic plaque noted in the left common carotid artery. There is intimal thickening but no significant atherosclerotic plaque noted in the left internal carotid artery. There is no significant atherosclerotic plaque noted in the left external carotid artery. Antegrade flow is noted in the left vertebral artery. Procedure Carotid Duplex [id number]. This is a Carotid Duplex examination using B-mode, color flow and specral Doppler. The study was technically difficult. D/T quivering of neck/chin & respiratory interference. Exam performed in department. VL/Carotid Duplex Ultrasound Interpretation Summary Irregular plaque at the proximal right internal carotid artery with tortuosity of the right internal carotid artery noted but less than 50% stenosis. Less than 50% stenosis right external carotid artery Intimal thickening at the proximal left internal carotid artery with less than 50% stenosis Less than 50% stenosis left external carotid artery Patent antegrade vertebral arteries bilaterally Ordering Physician: Amanda Daugherty Referring Physician: Ken Contreras Performed By: Lena Killian, KAMI, RVT
== END | disposition home or self-care (01) ==
LOC: CVS 09:46
PROVIDERS: PCP Internal Medicine; Referring Provider Nurse Practitioner Gerontology; Visit Provider Nurse Practitioner Gerontology
DX: R42 Dizziness and giddiness (principal)
CPT/HCPCS: 93880

== ENCOUNTER → 2024-06-21 | Outpatient (CLI) | payer MEDICARE, BC, SELFPAY | END | disposition home or self-care (01) | LOC: SL 20:07 | PROVIDERS: PCP Internal Medicine; Referring Provider Psychiatry & Neurology Sleep Medicine; Visit Provider Psychiatry & Neurology Sleep Medicine | DX: E66.9 Obesity, unspecified (principal); Z68.31 Body mass index [BMI] 31.0-31.9, adult; G47.10 Hypersomnia, unspecified; G47.00 Insomnia, unspecified; R06.83 Snoring | CPT/HCPCS: 95810 ==

== ENCOUNTER → 2024-07-01 | Outpatient (CLI) | payer MEDICARE, BC, SELFPAY ==
[2024-07-01 15:17] LABS: BNP,B-Type NATRIURETIC PEPTIDE 103.7 pg/mL (0-100)
[2024-07-01 15:21] LABS: Anion Gap 2 (5-15); BUN 29 mg/dL (7-18); BUN/Creat Ratio 29.1 RATIO (10-20); Calcium,Total 9.7 mg/dL (8.5-10.1); Chloride 107 mmol/L (98-107); EST Glomerular Filtration Rate 56 mL/min (>60); Est Glom Filt Rate - Afr Amer 68 mL/min (>60); Glucose 91 mg/dL (74-106); Sodium Level 137 mmol/L (136-145)
== END | disposition home or self-care (01) ==
LOC: LAB 14:06
PROVIDERS: PCP Internal Medicine; Referring Provider Internal Medicine Cardiovascular Disease; Visit Provider Internal Medicine Cardiovascular Disease
DX: R06.00 Dyspnea, unspecified (principal)
CPT/HCPCS: 36415; 80048; 83880

== ENCOUNTER 2024-08-08 14:47 | Emergency (ER) | payer MEDICARE, BC, SELFPAY ==
[2024-08-08 14:48] VITALS: BP 118/73; PULSE 59; RESP 16; TEMP 36.2; O2SAT 96; BMI 31.2
--- NOTE | 2024-08-08 15:45 | ED.VIS.FALL ---
HPI HPI - Fall History of Present Illness Chief Complaint: Fall Informant: patient and family Narrative Narrative: 89-year-old female had a fall last night as result of getting her feet tangled up while getting out of of her computer chair at home. She states she had socks on with grippies on the bottom and she thinks maybe they got stuck on the carpet or her other foot. No prodromal symptoms. She fell against furniture including a PNO bench, hitting the back of her head and her left chest wall and her left forearm. No loss of consciousness. EMS was contacted and came and evaluated her and she did not come to the ER. However this morning she developed a headache that she did not have last night, and just feeling poorly. No nausea or vomiting. No focal neurologic symptoms. No vision changes. she is on no anticoagulants or antiplatelets right now. [facility] Medical History Presence of cardiac pacemaker (~05/29/21) Chronotropic incompetence with sinus node dysfunction Sick sinus syndrome Sinus bradycardia Retinal detachment Essential hypertension GERD (gastroesophageal reflux disease) Acute respiratory failure with hypoxia PND (post-nasal drip) History of non-ST elevation myocardial infarction (NSTEMI) Pulmonary nodule Cough Dizziness Bronchiectasis Thrush, oral Dyspnea Chest pain Asthma exacerbation Bilateral SubmassivePE Hypothyroidism Asthmatic bronchitis , chronic Home Medications ?Medication ?Instructions ?Recorded ?Last Taken ?Type acetaminophen 325 mg tablet 650 mg PO QHS pain 11/17/16 11/16/16 History baclofen 10 mg tablet 5 mg PO BID muscle relaxer 11/17/16 11/16/16 History cyanocobalamin (vitamin B-12) 1,000 mcg PO DAILY vitamin 11/17/16 11/16/16 History 1,000 mcg tablet multivitamin 1 tab PO DAILY vitamin 11/17/16 11/16/16 History paroxetine HCl 10 mg tablet 40 mg PO DAILY mental health 11/17/16 05/29/21 History polyethylene glycol 3350 17 gram 17 gm PO DAILY constipation 05/27/17 Unknown History oral powder packet aspirin 81 mg tablet,delayed 81 mg PO DAILY@0800 heart health 11/27/17 Unknown History release lamotrigine 25 mg tablet,extended 25 mg PO DAILY 11/27/17 Unknown History release 24 hr loratadine 10 mg tablet (Claritin) 10 mg PO DAILY allergies 12/27/20 Unknown History albuterol sulfate 2.5 mg/3 mL 2.5 mg inhalation Q4H PRN Sob &/Or 01/10/21 05/29/21 History (0.083 %) solution for nebulization Wheezing brimonidine 0.2 %-timolol 0.5 % 1 drp ophthalmic (eye) BID eye 01/10/21 Unknown History eye drops (Combigan) health ketotifen fumarate 0.025 % (0.035 1 drp ophthalmic (eye) BID eye 01/10/21 Unknown History %) eye drops health latanoprost 0.005 % eye drops, 1 drp ophthalmic (eye) QPM eye 01/10/21 Unknown History emulsion health lisinopril 40 mg tablet 40 mg PO DAILY blood pressure 01/10/21 Unknown History lorazepam 1 mg tablet 2 mg PO QHS anxiety 01/10/21 Unknown History pantoprazole 20 mg tablet,delayed 40 mg PO DAILY reflux 01/10/21 05/29/21 History release vibegron 75 mg tablet (Gemtesa) 75 mg PO DAILY 08/07/21 Unknown History albuterol sulfate 90 mcg/actuation 1 - 2 puff inhalation Q4H PRN PRN 02/11/22 Unknown Rx aerosol inhaler Shortness Of Breath #18 grams ascorbic acid (vitamin C) 250 mg 250 mg PO BID 08/19/22 Unknown History tablet lactobacillus combination no.9 4 4,000 mmu cells PO DAILY 08/19/22 Unknown History billion cell capsule (Adult 50 Plus Probiotic) ergocalciferol (vitamin D2) 1,250 50,000 unit PO QMONTH vitamin 09/10/22 Unknown History mcg (50,000 unit) capsule fluticasone furoate 100 1 inh inhalation DAILY #60 ea 11/16/23 Unknown Rx mcg-vilanterol 25 mcg/dose inhalation powder (Breo Ellipta) conjugated estrogens 0.625 mg/gram 0.625 mg vaginal .3xweek 02/11/24 Unknown History vaginal cream levothyroxine 88 mcg tablet 88 mcg PO .COMPLEX thyroid 07/01/24 Unknown History furosemide 40 mg tablet 40 mg PO QAM #90 tabs 07/04/24 Unknown Rx hydrocodone-acetaminophen 5-325mg 1 tab PO Q6H PRN PRN Pain 3 days 08/08/24 Unknown Rx 5mg-325mg #10 TABLETS Allergy/AdvReac Type Severity Reaction Status Date / Time ciprofloxacin (From Cipro) Allergy Itching Verified 07/01/24 13:23 diphenhydramine (From Allergy Rash Verified 07/01/24 13:23 Benadryl) Penicillins Allergy Hives Verified 07/01/24 13:23 shellfish derived Allergy Anaphylaxis Verified 07/01/24 13:23 Sulfa (Sulfonamide Allergy Upset Verified 07/01/24 13:23 Antibiotics) Stomach tiotropium (From Spiriva Allergy Other Verified 07/01/24 13:23 with HandiHaler) ketamine AdvReac hallucinati Verified 07/01/24 13:23 ons Family History Mother Breast cancer Colon cancer Father Cancer Lung Grandmother Breast cancer CVA (cerebral vascular accident) Surgical History History of tonsillectomy History of cholecystectomy History of bronchoscopy History of cataract extraction History of hysterectomy History of bladder suspension procedure Social History Smoking Status: Former smoker Tobacco: How many years used: 10 second hand exposure: No alcohol intake: current details: occasional substance use type: does not use caffeine: Yes Type: coffee what type of physical activity do you participate in: other seatbelt use: always do you feel safe at home: Yes ROS ROS ED Constitutional Constitutional ED: Denies chills or fever(s) Eyes Eyes: Denies change in vision or diplopia ENT ENT ED: Denies ear pain, epistaxis, facial pain or rhinorrhea Cardiovascular Cardiovascular: Reports as per HPI and chest pain; Denies palpitations Respiratory/Chest Respiratory/Chest: Denies cough or dyspnea Gastrointestinal Gastrointestinal: Denies abdominal pain, diarrhea, melena, nausea or vomiting Genitourinary Genitourinary ED: Denies dysuria or hematuria Musculoskeletal Musculoskeletal: Reports as per HPI, back pain and extremity pain; Denies neck pain Integumentary Denies abscess, Abrasions, laceration or rash Neurologic Neurologic: Reports headache(s); Denies confusion, paresthesias or weakness Hematologic/Lymphatic Hematologic/Lymphatic: Reports easy bruising EXAM Physical Exam Const Vital Signs: 08/08/24 14:48 08/08/24 16:53 Temperature 97.2 F L Temperature Source Oral Pulse Rate 59 L Respiratory Rate 16 18 Blood Pressure 118/73 Blood Pressure Mean 88 Pulse Ox 96 Oxygen Delivery Method Room Air Positive well nourished and well developed General Appearance ED: well developed and NAD HEENT Reports TM's clear and nasal mucous membranes and turbinates normal HEENT Narrative: Tenderness at the occipital scalp bilaterally without hematomas or lacerations or obvious signs of trauma, no Campuzano sign no crepitance or depression, no CSF otorhinorrhea or hemotympanum, no facial trauma or raccoon eyes. Face and Sinus: Negative for facial tenderness Tympanic Membrane ED: Yes TM's clear Eyes PERRL and EOMs intact bilaterally Visual Acuity: other Other Details: no entrapment or pain with extraocular movements Neck full ROM and supple General: Negative for tenderness Chest Wall inspection of chest normal and palpation of chest normal Chest: symmetrical chest wall rise; Negative for crepitus or tenderness Resp normal respiratory effort and clear to auscultation bilaterally Percussion: other equal BS bilat Cardio no murmurs Rate: regular rate Rhythm: regular rhythm GI normal to inspection, nondistended, normoactive bowel sounds, soft to palpation and non-tender Back/Spine Back/Spine Narrative: Painful range of motion due to pain in the left posterior and lateral rib cage. There are several areas of bruising without crepitance or subcutaneous emphysema or step-off. She does splint with deep inspiration. There is interval bilaterally. Cervical Spine: Negative for cervical spine tenderness Thoracic Spine / Upper Back: Negative for thoracic spinal tenderness Lumbar Spine / Lower Back: Negative for lumbar spinal tenderness Extremity full ROM Extremity Narrative: Patient is mildly tender contusions in the left upper arm and forearm with a small 1 cm partial-thickness skin tear dorsal left forearm, none of this area has bony tenderness and she has full range of motion of the left upper extremity and is neurovascular intact distally. Full range of motion throughout all other joints of all other extremities. General Extremety ED: Negative for tenderness Neuro oriented x3, CN's II-XII intact bilaterally, moves all extremities and no focal motor deficits Neuro Narrative: Chronic decree sensation both feet, stable per patient no other neurologic deficits [place] Coma Scale: document GCS findings Spontaneous Obeys Commands Oriented 15 Sensorium / Orientation: awake and alert Psych mental status grossly normal and thought process normal Skin Skin Narrative: Skin tear left forearm otherwise no other skin injuries. Lesions: no lesions Rashes: no rashes MDM MDM MDM Narrative Medical decision making narrative: Obtained head CT reviewed the images and the report which I agree with, it is negative for any acute injury. Also obtain 5 view x-ray series of the left ribs including a PA chest, I see no displaced rib fractures or pneumothorax or pulmonary contusion on my interpretation, radiology in agreement. Patient was offered analgesics she declined but eventually is accepting to a prescription for something to use as needed. We considered x-rays of the left upper extremity but she is in agreement that she unlikely has any type of bony injury, so we avoided/get those I agree they are probably not necessary. We cleansed and dressed a small skin tear on her left forearm. Discharged with her brother, who states he lives with her. Discharged with incentive spirometer and instructions. Radiography Diagnostic Testing: Clinical Impression(s) from Imaging Studies Brain CT 08/08/24 15:54 IMPRESSION: Atrophy and moderate periventricular white matter ischemic changes. No evidence for acute intracranial hemorrhage. Electronically Signed: Barak Vuong MD at 16:23 EST , Ribs w/Chest X-Ray 08/08/24 16:00 IMPRESSION: RIBS: Normal x-ray examination of the ribs. CHEST: No acute cardiopulmonary pathology Electronically Signed: Barak Vuong MD at 16:36 EST , Discharge Plan Triage Chief Complaint: Fall ED Provider: Shad Hunter Dx/Rx/DC Orders Clinical Impression: Contusion of rib on left side, Closed head injury without loss of consciousness, Fall from slip, trip, or stumble, Skin tear of left upper extremity, Contusion of arm, left Instructions: ED Rib Contusion or Minor Fracture Prescriptions: New hydrocodone-acetaminophen 5-325 mg tablet 1 tab PO Q6H PRN PRN (Reason: Pain) 3 Days Qty: 10 0RF No Action albuterol sulfate 2.5 mg /3 mL (0.083 %) solution for nebulization 2.5 mg INHALATION Q4H PRN (Reason: Sob &/Or Wheezing) Combigan 0.2-0.5 % drops 1 drp ophthalmic (eye) BID ketotifen fumarate 0.025 % (0.035 %) drops 1 drp ophthalmic (eye) BID Rx Instructions: administer at least 8 hours apart latanoprost 0.005 % drops, emulsion 1 drp ophthalmic (eye) QPM lisinopril 40 mg tablet 40 mg PO DAILY pantoprazole 20 mg tablet,delayed release (DR/EC) 40 mg PO DAILY loratadine [Claritin] 10 mg tablet 10 mg PO DAILY Gemtesa 75 mg tablet 75 mg PO DAILY albuterol sulfate 90 mcg/actuation HFA aerosol inhaler 1 - 2 puff INHALATION Q4H PRN PRN (Reason: Shortness Of Breath) Qty: 18 6RF ascorbic acid (vitamin C) 250 mg tablet 250 mg PO BID Adult 50 Plus Probiotic 4 billion cell capsule 4,000 mmu cells PO DAILY Rx Instructions: administer with a meal conjugated estrogens 0.625 mg/gram cream 0.625 mg vaginal .3xweek Rx Instructions: Three times a week multivitamin 1 EACH tablet 1 tab PO DAILY Patient Comments: supplement acetaminophen 325 MG tablet 650 mg PO QHS Patient Comments: pain paroxetine HCl 10 MG tablet 40 mg PO DAILY Patient Comments: anxiety/depression cyanocobalamin (vitamin B-12) 1,000 MCG tablet 1,000 mcg PO DAILY Patient Comments: supplement baclofen 10 MG tablet 5 mg PO BID Patient Comments: muscle spasms lorazepam 1 mg tablet 2 mg PO QHS Patient Comments: anxiety/sleep ergocalciferol (vitamin D2) 1,250 mcg (50,000 unit) capsule 50,000 unit PO QMONTH Patient Comments: levothyroxine 88 mcg tablet 88 mcg PO .COMPLEX Patient Comments: hypothyroidism Rx Instructions: 88 mcg PO MOTUWETHFR; polyethylene glycol 3350 17 GM packet 17 gm PO DAILY aspirin 81 MG tablet 81 mg PO DAILY@0800 lamotrigine 25 MG tablet extended release 24hr 25 mg PO DAILY fluticasone furoate-vilanterol [Breo Ellipta] 100-25 mcg/dose blister with device 1 inh inhalation DAILY Qty: 60 6RF furosemide 40 mg tablet 40 mg PO QAM Qty: 90 3RF Primary Care Provider: Ken Contreras Referrals: Ken Contreras MD [Primary Care Provider] - 1 Week if not improving Print Language: Faroese Disposition Disposition: Home, Self Care
--- NOTE | 2024-08-08 15:54 | CT_ITS ---
STUDY: CT BRAIN WITHOUT CONTRAST REASON FOR EXAM: Female, 89 years old. trauma RADIATION DOSAGE (If Supplied By Facility): CTDIvol = ( 44.99 ) mGy, DLP = ( 796.11 ) mGycm TECHNIQUE: Transaxial CT imaging of the brain was performed without administration of intravenous contrast material. Individualized dose optimization techniques were used for this CT. COMPARISON: October 02, 2023 FINDINGS: Normal soft tissue structures. Normal calvarium. Calcific plaquing of the cavernous carotids Atrophy and moderate periventricular white matter ischemic changes. Normal basal ganglia and thalami. Normal brainstem. Normal cerebellum. Empty sella deformity of uncertain significance There is no intracranial hemorrhage. There are no findings of an acute ischemic infarction. Postsurgical changes of the orbits. Mucosal thickening of the right maxillary sinus CT/Brain/Head without Contrast IMPRESSION: Atrophy and moderate periventricular white matter ischemic changes. No evidence for acute intracranial hemorrhage. Electronically Signed: Barak Vuong MD at 16:23 EST ,
--- NOTE | 2024-08-08 16:00 | RAD_ITS ---
STUDY: X-RAY - UNILATERAL RIBS ( LEFT ) WITH CHEST REASON FOR EXAM: Female, 89 years old. injury/fall TECHNIQUE - RIBS: 2 view(s) of the ribs. TECHNIQUE - CHEST: AP COMPARISON: None. FINDINGS - RIBS: Normal visualized ribs without a demonstrated fracture. FINDINGS - CHEST: The lungs are clear and expanded. There is no demonstrated pleural abnormality. Pacer noted on the left with electrodes in satisfactory position Normal size heart. Normal mediastinum and michelle. Normal visualized pulmonary arteries. Mildly calcified aortic arch and descending thoracic aorta. Normal visualized thoracic spine. Normal visualized ribs, clavicles, and shoulders. Postop changes in the right upper quadrant RAD/Ribs Uni Min 3V w/PA Chest IMPRESSION: RIBS: Normal x-ray examination of the ribs. CHEST: No acute cardiopulmonary pathology Electronically Signed: Barak Vuong MD at 16:36 EST Reading Location ID and State: [facility] / [place] Tel , Service support ,
[2024-08-08 16:53] VITALS: RESP 18
[2024-08-08 18:00] VITALS: RESP 18
[2024-08-08 18:31] VITALS: BP 118/73; PULSE 59; RESP 18; TEMP 36.2; O2SAT 96
== END 2024-08-08 18:31 | disposition home or self-care (01) ==
PROVIDERS: Emergency Provider Emergency Medicine; PCP Internal Medicine; Visit Provider Emergency Medicine
DX: S20.212A Contusion of left front wall of thorax, initial encounter (principal); S51.812A Laceration without foreign body of left forearm, initial encounter; Z87.891 Personal history of nicotine dependence; I10 Essential (primary) hypertension; K21.9 Gastro-esophageal reflux disease without esophagitis; S09.90XA Unspecified injury of head, initial encounter; W01.0XXA Fall on same level from slipping, tripping and stumbling without subsequent striking against object, initial encounter
CPT/HCPCS: 70450; 71101; 99282

== ENCOUNTER 2024-09-05 17:08 | Emergency (ER) | payer MEDICARE, BC, SELFPAY ==
[2024-09-05 17:11] VITALS: BP 151/73; PULSE 60; RESP 16; TEMP 36.8; O2SAT 94; O2SAT 98; BMI 31.4
--- NOTE | 2024-09-05 17:22 | EKG12_ITS ---
Test Reason : Blood Pressure : */* mmHG Vent. Rate : 64 BPM Atrial Rate : 64 BPM P-R Int : 212 ms QRS Dur : 78 ms QT Int : 434 ms P-R-T Axes : 53 1 62 degrees QTcB Int : 447 ms Atrial-paced rhythm with prolonged AV conduction Low voltage QRS Abnormal ECG Confirmed by KAITLYN COX MD ([id number]), science editor MAUREEN DOVE ([id number]) on 09/06/2024 8:01:16 AM Referred By: Confirmed By: KAITLYN COX MD
[2024-09-05 17:38] LABS: Absolute Lymphocyte Count 2.37 X10^3/uL (0.83-4.51); Absolute Neutrophil Count 5.4 X10^3/uL (2.0-7.7); Basophil# 0.06 X10^3/uL; Basophil% 0.7 % (0-1); Eosinophils% 3.3 % (0-5); Hematocrit 38.8 % (37-47); Hemoglobin 12.3 g/dL (12.0-15.0); Lymphocyte # 2.37 X10^3/ul (0.83-4.51); Mean Corp Hgb Conc 31.7 g/dL (32-36); Mean Corpuscular Hgb 30.4 pg (27.0-32.0); Mean Corpuscular Volume 95.8 fL (81-99); Mean Platelet Vol. 9.8 fl (6.2-12.0); Monocyte# 0.97 X10^3/uL; Monocyte% 10.6 % (0-10); NRBC Flagged by Analyzer 0 % (0-5); Neutrophil # 5.37 X10^3/uL (2.7-7.7); Platelet Count 259 K/mm3 (150-450); RBC Distribution Width CV 15.4 % (11.6-14.6); RBC Distribution Width SD 53.9 fl (35.1-43.9); Red Blood Count 4.05 M/mm3 (4.2-5.4); White Blood Count 9.1 K/mm3 (4.4-11.0)
--- NOTE | 2024-09-05 17:40 | RAD_ITS ---
EXAM: XR CHEST, 2 VIEWS CLINICAL INDICATION: sob TECHNIQUE: Frontal and lateral views of the chest. COMPARISON: 08/26/2024 FINDINGS: LUNGS AND PLEURAL SPACES: Unremarkable. No consolidation or edema. No pneumothorax. No effusion. HEART: Unremarkable. Cardiac silhouette not enlarged. MEDIASTINUM: Central airways and mediastinal contour are unremarkable. BONES/JOINTS: Unremarkable. No acute fracture. SOFT TISSUES: Unremarkable. TUBES, LINES AND DEVICES: Left-sided pacemaker in good position. RAD/Chest PA and Lateral IMPRESSION: No acute findings in the chest. Electronically Signed: Bonifacio Llamas MD at 18:28 EST ,
[2024-09-05 17:58] LABS: BNP,B-Type NATRIURETIC PEPTIDE 26.3 pg/mL (0-100)
[2024-09-05 18:00] LABS: Anion Gap 6 (5-15); BUN 40 mg/dL (7-18); BUN/Creat Ratio 28.8 RATIO (10-20); Calcium,Total 9.6 mg/dL (8.5-10.1); Chloride 104 mmol/L (98-107); Creatinine, Serum 1.39 mg/dL (0.55-1.02); EST Glomerular Filtration Rate 38 mL/min (>60); Est Glom Filt Rate - Afr Amer 46 mL/min (>60); Estimated Creatinine Clearance 27.56 ml/min; Glucose 99 mg/dL (74-106); Sodium Level 139 mmol/L (136-145); Thyroid Stim Hormone (TSH) 0.438 uIU/mL (0.358-3.740); Troponin-I HS 6 pg/mL (3.0-54.0)
[2024-09-05 18:20] VITALS: O2SAT 99
--- NOTE | 2024-09-05 18:20 | EX.ED.DYSGE1 ---
HPI History of Present Illness Chief Complaint: Shortness of Breath Narrative Narrative: Patient is a 89-year-old female with a past medical history of sinus bradycardia, hypertension, GERD, PE approximately in [address] Luevano, asthma, hypothyroidism who presented to the emergency department chief complaint of low oxygen level. She notes that when she woke up this morning she felt short of breath and checked her oxygen and noted that was 70% on room air. She states that the home health nurse came in today and they noted that her oxygen level was 91% on room air. They state they called the shipping inspector and they advised her to come in for further evaluation management. [facility] Medical History Presence of cardiac pacemaker (~05/29/21) Chronotropic incompetence with sinus node dysfunction Sick sinus syndrome Sinus bradycardia Retinal detachment Essential hypertension GERD (gastroesophageal reflux disease) Acute respiratory failure with hypoxia PND (post-nasal drip) History of non-ST elevation myocardial infarction (NSTEMI) Pulmonary nodule Cough Dizziness Bronchiectasis Thrush, oral Dyspnea Chest pain Asthma exacerbation Bilateral SubmassivePE Hypothyroidism Asthmatic bronchitis , chronic Home Medications ?Medication ?Instructions ?Recorded ?Last Taken ?Type acetaminophen 325 mg tablet 650 mg PO QHS pain 11/17/16 11/16/16 History baclofen 10 mg tablet 5 mg PO BID muscle relaxer 11/17/16 11/16/16 History cyanocobalamin (vitamin B-12) 1,000 mcg PO DAILY vitamin 11/17/16 11/16/16 History 1,000 mcg tablet multivitamin 1 tab PO DAILY vitamin 11/17/16 11/16/16 History paroxetine HCl 10 mg tablet 40 mg PO DAILY mental health 11/17/16 05/29/21 History polyethylene glycol 3350 17 gram 17 gm PO DAILY constipation 05/27/17 Unknown History oral powder packet aspirin 81 mg tablet,delayed 81 mg PO DAILY@0800 heart health 11/27/17 Unknown History release lamotrigine 25 mg tablet,extended 25 mg PO DAILY 11/27/17 Unknown History release 24 hr loratadine 10 mg tablet (Claritin) 10 mg PO DAILY allergies 12/27/20 Unknown History albuterol sulfate 2.5 mg/3 mL 2.5 mg inhalation Q4H PRN Sob &/Or 01/10/21 05/29/21 History (0.083 %) solution for nebulization Wheezing brimonidine 0.2 %-timolol 0.5 % 1 drp ophthalmic (eye) BID eye 01/10/21 Unknown History eye drops (Combigan) health ketotifen fumarate 0.025 % (0.035 1 drp ophthalmic (eye) BID eye 01/10/21 Unknown History %) eye drops health latanoprost 0.005 % eye drops, 1 drp ophthalmic (eye) QPM eye 01/10/21 Unknown History emulsion health lisinopril 40 mg tablet 40 mg PO DAILY blood pressure 01/10/21 Unknown History lorazepam 1 mg tablet 2 mg PO QHS anxiety 01/10/21 Unknown History pantoprazole 20 mg tablet,delayed 40 mg PO DAILY reflux 01/10/21 05/29/21 History release vibegron 75 mg tablet (Gemtesa) 75 mg PO DAILY 08/07/21 Unknown History albuterol sulfate 90 mcg/actuation 1 - 2 puff inhalation Q4H PRN PRN 02/11/22 Unknown Rx aerosol inhaler Shortness Of Breath #18 grams ascorbic acid (vitamin C) 250 mg 250 mg PO BID 08/19/22 Unknown History tablet lactobacillus combination no.9 4 4,000 mmu cells PO DAILY 08/19/22 Unknown History billion cell capsule (Adult 50 Plus Probiotic) ergocalciferol (vitamin D2) 1,250 50,000 unit PO QMONTH vitamin 09/10/22 Unknown History mcg (50,000 unit) capsule conjugated estrogens 0.625 mg/gram 0.625 mg vaginal .3xweek 02/11/24 Unknown History vaginal cream levothyroxine 88 mcg tablet 88 mcg PO .COMPLEX thyroid 07/01/24 Unknown History furosemide 40 mg tablet 40 mg PO QAM #90 tabs 07/04/24 Unknown Rx hydrocodone-acetaminophen 5-325mg 1 tab PO Q6H PRN PRN Pain 3 days 08/08/24 Unknown Rx 5mg-325mg #10 TABLETS fluticasone furoate 100 1 inh inhalation DAILY #60 ea 08/22/24 Unknown Rx mcg-vilanterol 25 mcg/dose inhalation powder (Breo Ellipta) Allergy/AdvReac Type Severity Reaction Status Date / Time ciprofloxacin (From Cipro) Allergy Itching Verified 09/05/24 17:14 diphenhydramine (From Allergy Rash Verified 09/05/24 17:14 Benadryl) Penicillins Allergy Hives Verified 09/05/24 17:14 shellfish derived Allergy Anaphylaxis Verified 09/05/24 17:14 Sulfa (Sulfonamide Allergy Upset Verified 09/05/24 17:14 Antibiotics) Stomach tiotropium (From Spiriva Allergy Other Verified 09/05/24 17:14 with HandiHaler) ketamine AdvReac hallucinati Verified 09/05/24 17:14 ons Family History Mother Breast cancer Colon cancer Father Cancer Lung Grandmother Breast cancer CVA (cerebral vascular accident) Surgical History History of tonsillectomy History of cholecystectomy History of bronchoscopy History of cataract extraction History of hysterectomy History of bladder suspension procedure Social History Smoking Status: Former smoker Tobacco: How many years used: 10 second hand exposure: No alcohol intake: current details: occasional substance use type: does not use caffeine: Yes Type: coffee what type of physical activity do you participate in: other seatbelt use: always do you feel safe at home: Yes ROS ROS ED ROS Narrative Constitutional: Denies any fevers, chills, headaches, lightness, dizziness Eyes: Denies change in vision double vision blurry vision Cardiovascular: Denies chest pain or palpitations Respiratory: Complains of cough but denies shortness of breath or wheezing Abdomen: Denies abdominal pain nausea vomit diarrhea : Denies any urinary symptoms Neurological: denies any numbness, weakness, tingling Musculoskeletal: Denies any back pain Skin: Denies any rashes or lesions EXAM Physical Exam Narrative Exam Narrative: General: Patient was lying in bed rest comfortably did not appear to be in acute distress Head: Atraumatic, normocephalic Eyes: PERRL bilaterally, EOMI bilaterally, no conjunctival injection noted Neck: Soft, supple, trachea midline Cardiovascular: Clear to auscultation bilaterally no rales rhonchi or wheezes noted Respiratory: Soft, nondistended, nontender to palpation, bowel sounds present x 4 Abdomen: Soft, nondistended, no tenderness to palpation Extremities: +5/5 strength noted in the bilateral upper and lower extremities, radial pulses +2/4 in the bilateral upper extremities Neurological: Patient following commands knew that she was at [facility] years 2023 Skin: Warm, dry, intact Const Vital Signs: 09/05/24 17:11 09/05/24 17:11 09/05/24 17:31 Temperature 98.2 F Temperature Source Oral Pulse Rate 60 Respiratory Rate 16 Respiratory Effort Short of Breath Respiratory Depth Normal Respiratory Pattern Normal Blood Pressure 151/73 H Blood Pressure Mean 99 Pulse Ox 94 Oxygen Delivery Method Room Air Room Air Room Air 09/05/24 19:11 Temperature Temperature Source Pulse Rate 63 Respiratory Rate 16 Respiratory Effort Respiratory Depth Respiratory Pattern Blood Pressure 145/87 H Blood Pressure Mean 106 Pulse Ox 98 Oxygen Delivery Method Room Air MDM MDM MDM Narrative Medical decision making narrative: Patient is a 89-year-old female who presented to the emerged part with chief complaint of shortness of breath and hypoxia at home earlier today. Patient will have a workup performed here on the differential diagnose includes but not limited to pneumonia, perspire infection second viral etiology, CHF, pneumothorax. Once workup is obtained reviewed she will be reevaluated. Patient CBC reviewed and showed no evidence leukocytosis white blood count normal at 9.1, hemoglobin stable 12.3, platelet count was noted to be normal at 259. Patient sodium normal 139, potassium normal at 4, creatinine was noted to be 1.39 which is slightly elevated from her baseline. Patient troponin normal at 6, EKG reviewed and independently interpreted by myself showed atrial paced rhythm with a rate of 64 bpm. Patient proBNP normal at 26.3, TSH normal at 0.43. Patient's chest x-ray reviewed by myself and by radiology showed no acute cardiopulmonary processes. Patient tested negative for COVID flu and RSV. Patient ambulated well here in the emergency department did not have any evidence of hypoxia. Patient states that she feels well and would like to go home at this point time. Patient has not had any evidence of hypoxia here in the emergency department during her stay. She was advised to follow-up with her primary care physician outpatient setting. She was encouraged return for worsening symptoms and concerns. She is agreeable this plan as well as family member bedside all question concerns answered she was discharged home in stable condition. Lab Data Labs: Laboratory Results - last 24 hr 09/05/24 17:28 WBC 9.1 RBC 4.05 L Hgb 12.3 Hct 38.8 MCV 95.8 MCH 30.4 MCHC 31.7 L RDW Std Deviation 53.9 H RDW Coeff of Dave 15.4 H Plt Count 259 MPV 9.8 Immature Gran % (Auto) 0.400 Neut % (Auto) 59.0 Lymph % (Auto) 26.0 [place] % (Auto) 10.6 H Eos % (Auto) 3.3 Baso % (Auto) 0.7 Absolute Neuts (auto) 5.4 Absolute Lymphs (auto) 2.37 Nucleated RBC % 0 Sodium 139 Potassium 4.0 Chloride 104 Carbon Dioxide 29.0 Anion Gap 6 BUN 40 H Creatinine 1.39 H Estim Creat Clear Calc 27.56 Est GFR (MDRD) Af Amer 46 L Est GFR (MDRD) Non-Af 38 L BUN/Creatinine Ratio 28.8 H Glucose 99 Calcium 9.6 Troponin I High Sens 6 B-Natriuretic Peptide 26.3 TSH 0.438 Radiography Diagnostic Testing: Clinical Impression(s) from Imaging Studies Chest X-Ray 09/05/24 17:40 IMPRESSION: No acute findings in the chest. Electronically Signed: Bonifacio Llamas MD at 18:28 EST , Discharge Plan Triage Chief Complaint: Shortness of Breath ED Provider: Patrice Brady Dx/Rx/DC Orders Clinical Impression: Shortness of breath Prescriptions: No Action albuterol sulfate 2.5 mg /3 mL (0.083 %) solution for nebulization 2.5 mg INHALATION Q4H PRN (Reason: Sob &/Or Wheezing) Combigan 0.2-0.5 % drops 1 drp ophthalmic (eye) BID ketotifen fumarate 0.025 % (0.035 %) drops 1 drp ophthalmic (eye) BID Rx Instructions: administer at least 8 hours apart latanoprost 0.005 % drops, emulsion 1 drp ophthalmic (eye) QPM lisinopril 40 mg tablet 40 mg PO DAILY pantoprazole 20 mg tablet,delayed release (DR/EC) 40 mg PO DAILY loratadine [Claritin] 10 mg tablet 10 mg PO DAILY Gemtesa 75 mg tablet 75 mg PO DAILY albuterol sulfate 90 mcg/actuation HFA aerosol inhaler 1 - 2 puff INHALATION Q4H PRN PRN (Reason: Shortness Of Breath) Qty: 18 6RF ascorbic acid (vitamin C) 250 mg tablet 250 mg PO BID Adult 50 Plus Probiotic 4 billion cell capsule 4,000 mmu cells PO DAILY Rx Instructions: administer with a meal conjugated estrogens 0.625 mg/gram cream 0.625 mg vaginal .3xweek Rx Instructions: Three times a week multivitamin 1 EACH tablet 1 tab PO DAILY Patient Comments: supplement acetaminophen 325 MG tablet 650 mg PO QHS Patient Comments: pain paroxetine HCl 10 MG tablet 40 mg PO DAILY Patient Comments: anxiety/depression cyanocobalamin (vitamin B-12) 1,000 MCG tablet 1,000 mcg PO DAILY Patient Comments: supplement baclofen 10 MG tablet 5 mg PO BID Patient Comments: muscle spasms lorazepam 1 mg tablet 2 mg PO QHS Patient Comments: anxiety/sleep ergocalciferol (vitamin D2) 1,250 mcg (50,000 unit) capsule 50,000 unit PO QMONTH Patient Comments: levothyroxine 88 mcg tablet 88 mcg PO .COMPLEX Patient Comments: hypothyroidism Rx Instructions: 88 mcg PO MOTUWETHFR; polyethylene glycol 3350 17 GM packet 17 gm PO DAILY aspirin 81 MG tablet 81 mg PO DAILY@0800 lamotrigine 25 MG tablet extended release 24hr 25 mg PO DAILY hydrocodone-acetaminophen 5-325 mg tablet 1 tab PO Q6H PRN PRN (Reason: Pain) 3 Days Qty: 10 0RF furosemide 40 mg tablet 40 mg PO QAM Qty: 90 3RF fluticasone furoate-vilanterol [Breo Ellipta] 100-25 mcg/dose blister with device 1 inh inhalation DAILY Qty: 60 6RF Primary Care Provider: Ken Contreras Referrals: Ken Contreras MD [Primary Care Provider] - Activity Restrictions/Additional Instructions: Follow-up with your doctor in outpatient setting. Return with worsening symptoms or other concerns. Print Language: Kinyarwanda Disposition Disposition: Home, Self Care
[2024-09-05 19:11] VITALS: BP 145/87; PULSE 63; RESP 16; O2SAT 98
[2024-09-05 20:00] VITALS: BP 146/92; PULSE 62; RESP 16; TEMP 36.9; O2SAT 98
== END 2024-09-05 20:03 | disposition home or self-care (01) ==
PROVIDERS: Emergency Provider Emergency Medicine; PCP Internal Medicine; Visit Provider Emergency Medicine
DX: R06.02 Shortness of breath (principal); I10 Essential (primary) hypertension; Z87.891 Personal history of nicotine dependence; Z95.0 Presence of cardiac pacemaker; I25.2 Old myocardial infarction; Z79.82 Long term (current) use of aspirin; Z79.899 Other long term (current) drug therapy; K21.9 Gastro-esophageal reflux disease without esophagitis; E03.9 Hypothyroidism, unspecified; Z79.890 Hormone replacement therapy; Z90.49 Acquired absence of other specified parts of digestive tract; Z98.49 Cataract extraction status, unspecified eye; Z90.710 Acquired absence of both cervix and uterus
CPT/HCPCS: 71046; 80048; 83880; 84443; 84484; 85025; 87631; 93005; 99284

== ENCOUNTER → 2024-10-12 | Outpatient (CLI) | payer MEDICARE, BC, SELFPAY ==
--- NOTE | 2024-10-12 12:38 | CT_ITS ---
PROCEDURE: BRAIN/HEAD WITHOUT CONTRAST REASON FOR EXAM: Daily headache. TECHNIQUE: CT of the head without contrast was performed. COMPARISON: 08/08/2024 CT. FINDINGS: Moderate global parenchymal atrophy. Moderate chronic microvascular ischemia. No evidence of acute hemorrhage or infarction. No extra-axial blood or fluid collections. The paranasal sinuses are clear. The calvarial vault and skull base are intact. CT/Brain/Head without Contrast IMPRESSION: No acute intracranial abnormalities. One or more dose reduction techniques were used (e.g., Automated exposure contr ol, adjustment of the mA and/or kV according to patient size, use of iterative reconstruction technique). Reading Location: [id number]
== END | disposition home or self-care (01) ==
LOC: CT 12:31
PROVIDERS: PCP Internal Medicine; Referring Provider Otolaryngology; Visit Provider Otolaryngology
DX: G44.89 Other headache syndrome (principal)
CPT/HCPCS: 70450

== ENCOUNTER → 2024-11-11 | Outpatient (CLI) | payer MEDICARE, BC, SELFPAY ==
[2024-11-11 17:14] LABS: Anion Gap 10 (5-15); BUN 39 mg/dL (4-19); BUN/Creat Ratio 27.3 RATIO (10-20); Calcium,Total 9.5 mg/dL (7.6-11.0); Carbon Dioxide 25.8 mmol/L (21.0-32.0); Chloride 101 mmol/L (98-108); Creatinine, Serum 1.42 mg/dL (0.70-1.20); EST Glomerular Filtration Rate 36 (>60); Glucose 85 mg/dL (70-99); Potassium 4.9 mmol/L (3.3-5.1); Sodium Level 137 mmol/L (133-145)
== END | disposition home or self-care (01) ==
LOC: LAB 15:53
PROVIDERS: PCP Internal Medicine; Referring Provider Physician Assistant Medical; Visit Provider Physician Assistant Medical
DX: Z51.81 Encounter for therapeutic drug level monitoring (principal); Z79.899 Other long term (current) drug therapy
CPT/HCPCS: 36415; 80048

== ENCOUNTER 2025-02-15 14:13 | Emergency (ER) | payer MEDICARE, BC, SELFPAY ==
[2025-02-15 14:14] VITALS: BP 127/73; PULSE 68; RESP 15; TEMP 36.8; O2SAT 97
--- NOTE | 2025-02-15 15:26 | CT_ITS ---
PROCEDURE: SPINE CERVICAL WITHOUT CONTRAS 02/15/2025 REASON FOR EXAM: INJURY/PAIN TECHNIQUE: Cervical spine CT without contrast. Coronal and Sagittal reconstruction series were provided. One or more dose reduction techniques were used (e.g., Automated exposure control, adjustment of the mA and/or kV according to patient size, use of iterative reconstruction technique RADIATION DOSE SUMMARY: DLP: 849.55 mGycm COMPARISON: 10/02/2023. FINDINGS: No evidence of acute fracture or dislocation. Vertebral body heights are maintained. Osseous demineralization. Grade 1 anterolisthesis of C4 on C5. Discogenic degenerative changes most pronounced at C5-6. No acute soft tissue abnormalities. CT/Spine Cervical without Contras IMPRESSION: No acute cervical spine fracture. Spondylosis. Spondylolisthesis. Reading Location: [place] [id number]
--- NOTE | 2025-02-15 15:26 | CT_ITS ---
PROCEDURE: BRAIN/HEAD WITHOUT CONTRAST 02/15/2025 REASON FOR EXAM: INJURY/PAIN TECHNIQUE: Head CT without intravenous contrast. Coronal and Sagittal reconstruction series were provided. One or more dose reduction techniques were used (e.g., Automated exposure control, adjustment of the mA and/or kV according to patient size, use of iterative reconstruction technique. RADIATION DOSE SUMMARY: CTDlvol: 44.99+ 14.63 mGy DLP: 1096.20 mGycm COMPARISON: 10/12/2024. FINDINGS: Mild to moderate global parenchymal atrophy. Periventricular white matter hypodensity likely representing chronic microvascular ischemia. No evidence of acute hemorrhage or infarction. No extra-axial blood or fluid collections. The paranasal sinuses and mastoid air cells are well aerated. The calvarial vault and skull base are intact. CT/Brain/Head without Contrast IMPRESSION: NO ACUTE FINDINGS Reading Location: [place] [id number]
--- NOTE | 2025-02-15 15:39 | EDS_ITS ---
HPI History of Present Illness Chief Complaint: Fall Detail of Chief Complaint: Headache, neck pain and low back pain status post fall Informant: patient Onset/Context/Timing Onset: Days (Yesterday) Mechanism/Context: Blunt Injury and Fall (States she tripped over her feet. She fell into the refrigerator.) Location of pain/injuries: - (Left parietal area, neck and low back. Patient unaware she had ecchymosis dorsal ulnar side of her left hand) Quality of Pain: Dull and Aching Current Severity: Mild Maximum Severity: Moderate Worsened by: Neck pain worse with palpation and low back pain worse with movement Relieved by: Nothing Associated Symptoms Associated Symptoms: Negative for Parasthesias, Weakness, Loss of function, Inability to ambulate, Loss of consciousness or Amnesia Narrative Narrative: Patient 89-year-old woman. Is on aspirin. Has history of asthma, hypothyroidism, non-ST elevation NM, GERD, and essential hypertension. She also has history of pacemaker placement 2020. Patient states she tripped over her feet. She fell into the refrigerator. She hit the left side of her head. She presents today because of persistent headache since injury. Neck pain and low back pain. She has not taken anything for it. She was asked if she would like anything for her pain and she declined. Patient denies double vision blurred vision loss of vision. Denies weight or ears or decreased hearing. She denies paresthesia, anesthesia or motor weakness. She denies cardiac respiratory symptoms. Denies black or maroon- colored stool. She has no urologic symptoms. Patient does have history of osteoporosis. Prior similar symptoms: No Recent Illness/Hospitalization: No [facility] Medical History Presence of cardiac pacemaker (~05/29/21) Chronotropic incompetence with sinus node dysfunction Sick sinus syndrome Sinus bradycardia Retinal detachment Essential hypertension GERD (gastroesophageal reflux disease) Acute respiratory failure with hypoxia PND (post-nasal drip) History of non-ST elevation myocardial infarction (NSTEMI) Pulmonary nodule Cough Dizziness Bronchiectasis Thrush, oral Dyspnea Chest pain Asthma exacerbation Bilateral SubmassivePE Hypothyroidism Asthmatic bronchitis , chronic Home Medications ?Medication ?Instructions ?Recorded ?Last Taken ?Type acetaminophen 325 mg tablet 650 mg PO QHS pain 7 11/16/16 History baclofen 10 mg tablet 5 mg PO BID muscle relaxer 0 11/17/16 11/16/16 History cyanocobalamin (vitamin B-12) 1,000 mcg PO DAILY vitam in 11/17/16 11/16/16 History 1,000 mcg tablet multivitamin 1 tab PO DAILY vitamin 11/1711/16/16 History paroxetine HCl 10 mg tablet 40 mg PO DAILY mental heal th 11/17/16 05/29/21 History polyethylene glycol 3350 17 gram 17 gm PO DAILY consti pation 05/27/17 Unknown History oral powder packet aspirin 81 mg tablet,delayed 81 mg PO DAILY@0800 heart health 11/27/17 Unknown History release lamotrigine 25 mg tablet,extended 25 mg PO DAILY 11/27 Unknown History release 24 hr loratadine 10 mg tablet (Claritin) 10 mg PO DAILY therese rgies 12/27/20 Unknown History albuterol sulfate 2.5 mg/3 mL 2.5 mg inhalation Q4H CO N Sob &/Or 01/10/21 05/29/21 History (0.083 %) solution for nebulization Wheezing brimonidine 0.2 %-timolol 0.5 % 1 drp ophthalmic (eye) BID eye 01/10/21 Unknown History eye drops (Combigan) health ketotifen fumarate 0.025 % (0.035 1 drp ophthalmic (ey e) BID eye 01/10/21 Unknown History %) eye drops health latanoprost 0.005 % eye drops, 1 drp ophthalmic (eye) QPM eye 01/10/21 Unknown History emulsion health lisinopril 40 mg tablet 40 mg PO DAILY blood pressur e 01/10/21 Unknown History lorazepam 1 mg tablet 2 mg PO QHS anxiety 01/10/21 Unknown History pantoprazole 20 mg tablet,delayed 40 mg PO DAILY reflu x 01/10/21 05/29/21 History release vibegron 75 mg tablet (Gemtesa) 75 mg PO DAILY 1 Unknown History albuterol sulfate 90 mcg/actuation 1 - 2 puff inhalati on Q4H PRN PRN 02/11/22 Unknown Rx aerosol inhaler Shortness Of Breath #18 gram s ascorbic acid (vitamin C) 250 mg 250 mg PO BID 2 Unknown History tablet lactobacillus combination no.9 4 4,000 mmu cells PO DA BUTCH 08/19/22 Unknown History billion cell capsule (Adult 50 Plus Probiotic) ergocalciferol (vitamin D2) 1,250 50,000 unit PO QMONT H vitamin 09/10/22 Unknown History mcg (50,000 unit) capsule conjugated estrogens 0.625 mg/gram 0.625 mg vaginal .3
--- NOTE | 2025-02-15 15:39 | EX.ED.GENINJ ---
HPI History of Present Illness Chief Complaint: Fall Detail of Chief Complaint: Headache, neck pain and low back pain status post fall Informant: patient Onset/Context/Timing Onset: Days (Yesterday) Mechanism/Context: Blunt Injury and Fall (States she tripped over her feet. She fell into the refrigerator.) Location of pain/injuries: - (Left parietal area, neck and low back. Patient unaware she had ecchymosis dorsal ulnar side of her left hand) Quality of Pain: Dull and Aching Current Severity: Mild Maximum Severity: Moderate Worsened by: Neck pain worse with palpation and low back pain worse with movement Relieved by: Nothing Associated Symptoms Associated Symptoms: Negative for Parasthesias, Weakness, Loss of function, Inability to ambulate, Loss of consciousness or Amnesia Narrative Narrative: Patient 89-year-old woman. Is on aspirin. Has history of asthma, hypothyroidism, non-ST elevation MA, GERD, and essential hypertension. She also has history of pacemaker placement 2020. Patient states she tripped over her feet. She fell into the refrigerator. She hit the left side of her head. She presents today because of persistent headache since injury. Neck pain and low back pain. She has not taken anything for it. She was asked if she would like anything for her pain and she declined. Patient denies double vision blurred vision loss of vision. Denies weight or ears or decreased hearing. She denies paresthesia, anesthesia or motor weakness. She denies cardiac respiratory symptoms. Denies black or maroon-colored stool. She has no urologic symptoms. Patient does have history of osteoporosis. Prior similar symptoms: No Recent Illness/Hospitalization: No [facility] Medical History Presence of cardiac pacemaker (~05/29/21) Chronotropic incompetence with sinus node dysfunction Sick sinus syndrome Sinus bradycardia Retinal detachment Essential hypertension GERD (gastroesophageal reflux disease) Acute respiratory failure with hypoxia PND (post-nasal drip) History of non-ST elevation myocardial infarction (NSTEMI) Pulmonary nodule Cough Dizziness Bronchiectasis Thrush, oral Dyspnea Chest pain Asthma exacerbation Bilateral SubmassivePE Hypothyroidism Asthmatic bronchitis , chronic Home Medications ?Medication ?Instructions ?Recorded ?Last Taken ?Type acetaminophen 325 mg tablet 650 mg PO QHS pain 11/17/16 11/16/16 History baclofen 10 mg tablet 5 mg PO BID muscle relaxer 11/17/16 11/16/16 History cyanocobalamin (vitamin B-12) 1,000 mcg PO DAILY vitamin 11/17/16 11/16/16 History 1,000 mcg tablet multivitamin 1 tab PO DAILY vitamin 11/17/16 11/16/16 History paroxetine HCl 10 mg tablet 40 mg PO DAILY mental health 11/17/16 05/29/21 History polyethylene glycol 3350 17 gram 17 gm PO DAILY constipation 05/27/17 Unknown History oral powder packet aspirin 81 mg tablet,delayed 81 mg PO DAILY@0800 heart health 11/27/17 Unknown History release lamotrigine 25 mg tablet,extended 25 mg PO DAILY 11/27/17 Unknown History release 24 hr loratadine 10 mg tablet (Claritin) 10 mg PO DAILY allergies 12/27/20 Unknown History albuterol sulfate 2.5 mg/3 mL 2.5 mg inhalation Q4H PRN Sob &/Or 01/10/21 05/29/21 History (0.083 %) solution for nebulization Wheezing brimonidine 0.2 %-timolol 0.5 % 1 drp ophthalmic (eye) BID eye 01/10/21 Unknown History eye drops (Combigan) health ketotifen fumarate 0.025 % (0.035 1 drp ophthalmic (eye) BID eye 01/10/21 Unknown History %) eye drops health latanoprost 0.005 % eye drops, 1 drp ophthalmic (eye) QPM eye 01/10/21 Unknown History emulsion health lisinopril 40 mg tablet 40 mg PO DAILY blood pressure 01/10/21 Unknown History lorazepam 1 mg tablet 2 mg PO QHS anxiety 01/10/21 Unknown History pantoprazole 20 mg tablet,delayed 40 mg PO DAILY reflux 01/10/21 05/29/21 History release vibegron 75 mg tablet (Gemtesa) 75 mg PO DAILY 08/07/21 Unknown History albuterol sulfate 90 mcg/actuation 1 - 2 puff inhalation Q4H PRN PRN 02/11/22 Unknown Rx aerosol inhaler Shortness Of Breath #18 grams ascorbic acid (vitamin C) 250 mg 250 mg PO BID 08/19/22 Unknown History tablet lactobacillus combination no.9 4 4,000 mmu cells PO DAILY 08/19/22 Unknown History billion cell capsule (Adult 50 Plus Probiotic) ergocalciferol (vitamin D2) 1,250 50,000 unit PO QMONTH vitamin 09/10/22 Unknown History mcg (50,000 unit) capsule conjugated estrogens 0.625 mg/gram 0.625 mg vaginal .3xweek 02/11/24 Unknown History vaginal cream levothyroxine 88 mcg tablet 88 mcg PO .COMPLEX thyroid 07/01/24 Unknown History furosemide 40 mg tablet 40 mg PO QAM #90 tabs 07/04/24 Unknown Rx hydrocodone-acetaminophen 5-325mg 1 tab PO Q6H PRN PRN Pain 3 days 08/08/24 Unknown Rx 5mg-325mg #10 TABLETS fluticasone furoate 100 1 inh inhalation DAILY #60 ea 08/22/24 Unknown Rx mcg-vilanterol 25 mcg/dose inhalation powder (Breo Ellipta) meloxicam 15 mg tablet 15 mg PO DAILY 09/21/24 Unknown History Allergy/AdvReac Type Severity Reaction Status Date / Time ciprofloxacin (From Cipro) Allergy Itching Verified 02/15/25 14:16 diphenhydramine (From Allergy Rash Verified 02/15/25 14:16 Benadryl) Penicillins Allergy Hives Verified 02/15/25 14:16 shellfish derived Allergy Anaphylaxis Verified 02/15/25 14:16 Sulfa (Sulfonamide Allergy Upset Verified 02/15/25 14:16 Antibiotics) Stomach tiotropium (From Spiriva Allergy Other Verified 02/15/25 14:16 with HandiHaler) ketamine AdvReac hallucinati Verified 02/15/25 14:16 ons Family History Mother Breast cancer Colon cancer Father Cancer Lung Grandmother Breast cancer CVA (cerebral vascular accident) Surgical History History of tonsillectomy History of cholecystectomy History of bronchoscopy History of cataract extraction History of hysterectomy History of bladder suspension procedure Social History Smoking Status: Former smoker Tobacco: How many years used: 10 second hand exposure: No alcohol intake: current details: occasional substance use type: does not use caffeine: Yes Type: coffee what type of physical activity do you participate in: other seatbelt use: always do you feel safe at home: Yes ROS ROS ED Constitutional Constitutional ED: Denies chills, fever(s) or subjective Eyes Eyes: Denies blurry vision or change in vision ENT ENT ED: Denies ear pain, rhinorrhea or sore throat Cardiovascular Cardiovascular: Denies chest pain, palpitations or racing heartbeat Respiratory/Chest Respiratory/Chest: Denies cough, dyspnea or dyspnea on exertion Gastrointestinal Gastrointestinal: Reports nausea; Denies abdominal pain, constipation, diarrhea, melena or vomiting Genitourinary Genitourinary ED: Denies dysuria, hematuria or urinary frequency Musculoskeletal Musculoskeletal: Reports back pain and neck pain; Denies arthralgias or myalgias Integumentary Denies rash Neurologic Neurologic: Reports headache(s); Denies paresthesias or weakness Endocrine Endocrinology: Denies cold intolerance or heat intolerance Hematologic/Lymphatic Hematologic/Lymphatic: Denies easy bleeding or easy bruising EXAM Physical Exam Const Vital Signs: 02/15/25 14:14 02/15/25 15:49 02/15/25 16:13 Temperature 98.2 F Temperature Source Oral Pulse Rate 68 59 L Respiratory Rate 15 18 Respiratory Effort Normal Non-Labored Respiratory Depth Normal Respiratory Pattern Normal Blood Pressure 127/73 H 127/70 H Blood Pressure Mean 91 89 Pulse Ox 97 94 97 Oxygen Delivery Method Room Air Room Air Room Air Positive well nourished and well developed General Appearance ED: well developed HEENT Reports TM's clear HEENT Narrative: Patient has contusion left parietal area. No palpable depression. There is no clinical findings of basilar skull fracture. trauma and tenderness; Negative for atraumatic Nose: Negative for septum abnormal Tympanic Membrane ED: Yes TM's clear Eyes PERRL and EOMs intact bilaterally General Eye ED: Yes other Other Details: There is no nystagmus. There is no subconjunctival hemorrhage. Neck full ROM Neck Narrative: Spinous processes C5 and C6 General: tenderness Chest Wall inspection of chest normal and palpation of chest normal Resp normal respiratory effort and clear to auscultation bilaterally Cardio regular rhythm, S1 normal heart sound, S2 normal heart sound and no murmurs GI normal to inspection, nondistended, normoactive bowel sounds, non-tender, non-distended and no masses Palpation: soft Back/Spine normal to inspection; Negative for no thoracic nor lumbar tenderness Back/Spine Narrative: Pain ovation L2, L3 and L4. Lumbar Spine / Lower Back: straight leg raise negative bilaterally Extremity normal to inspection and full ROM MDM MDM Radiography Chest X-Ray - ED: Read by ED Physician (Three-view x-ray of the LS-spine reveals no evidence of fracture. There is minimal degenerative changes. There is calcification of the aorta. There is no dilatation of the aorta.) Diagnostic Testing: Clinical Impression(s) from Imaging Studies Brain CT 02/15/25 15:26 IMPRESSION: NO ACUTE FINDINGS Reading Location: [id number] Cerv[address] 02/15/25 15:26 IMPRESSION: No acute cervical spine fracture. Spondylosis. Spondylolisthesis. Reading Location: [id number] Lumbar Spine X-Ray 02/15/25 16:40 IMPRESSION: No acute osseous abnormality. Spondylosis. Spondylolisthesis. Scoliosis. Reading Location: [id number] CT of the head without contrast and CT of the cervical spine without contrast reveals no acute process. There is no intra epidural hematoma, subdural hematoma, traumatic subarachnoid hemorrhage or parenchymal contusion. There is no evidence of fracture. There is no fluid in the sinuses. CT reveals degenerative changes. No prevertebral swelling noted. Is no was a fracture, subluxation or dislocation. The LS-spine, CT of the head and neck were independently reviewed by me at 1648 Treatment and Re-Evaluation Narrative: Patient was discharged home with appropriate home-going instructions. Interpretation of images by radiologist was reviewed. There is no discrepancy. Discharge Plan Triage Chief Complaint: Fall ED Provider: Av Valencia Dx/Rx/DC Orders Clinical Impression: CHI (closed head injury), GERD (gastroesophageal reflux disease), Essential hypertension, Acute post-traumatic headache, Acute cervical myofascial strain, Acute lumbar myofascial strain, Injury due to fall Instructions: ED Back Sprain/Strain, ED Head Injury (Adult), ED Neck Sprain or Strain Prescriptions: No Action albuterol sulfate 2.5 mg /3 mL (0.083 %) solution for nebulization 2.5 mg INHALATION Q4H PRN (Reason: Sob &/Or Wheezing) Combigan 0.2-0.5 % drops 1 drp ophthalmic (eye) BID ketotifen fumarate 0.025 % (0.035 %) drops 1 drp ophthalmic (eye) BID Rx Instructions: administer at least 8 hours apart latanoprost 0.005 % drops, emulsion 1 drp ophthalmic (eye) QPM lisinopril 40 mg tablet 40 mg PO DAILY pantoprazole 20 mg tablet,delayed release (DR/EC) 40 mg PO DAILY loratadine [Claritin] 10 mg tablet 10 mg PO DAILY Gemtesa 75 mg tablet 75 mg PO DAILY albuterol sulfate 90 mcg/actuation HFA aerosol inhaler 1 - 2 puff INHALATION Q4H PRN PRN (Reason: Shortness Of Breath) Qty: 18 6RF ascorbic acid (vitamin C) 250 mg tablet 250 mg PO BID Adult 50 Plus Probiotic 4 billion cell capsule 4,000 mmu cells PO DAILY Rx Instructions: administer with a meal conjugated estrogens 0.625 mg/gram cream 0.625 mg vaginal .3xweek Rx Instructions: Three times a week multivitamin 1 EACH tablet 1 tab PO DAILY Patient Comments: supplement acetaminophen 325 MG tablet 650 mg PO QHS Patient Comments: pain paroxetine HCl 10 MG tablet 40 mg PO DAILY Patient Comments: anxiety/depression cyanocobalamin (vitamin B-12) 1,000 MCG tablet 1,000 mcg PO DAILY Patient Comments: supplement baclofen 10 MG tablet 5 mg PO BID Patient Comments: muscle spasms lorazepam 1 mg tablet 2 mg PO QHS Patient Comments: anxiety/sleep ergocalciferol (vitamin D2) 1,250 mcg (50,000 unit) capsule 50,000 unit PO QMONTH Patient Comments: levothyroxine 88 mcg tablet 88 mcg PO .COMPLEX Patient Comments: hypothyroidism Rx Instructions: 88 mcg PO MOTUWETHFR; polyethylene glycol 3350 17 GM packet 17 gm PO DAILY aspirin 81 MG tablet 81 mg PO DAILY@0800 lamotrigine 25 MG tablet extended release 24hr 25 mg PO DAILY meloxicam 15 mg tablet 15 mg PO DAILY hydrocodone-acetaminophen 5-325 mg tablet 1 tab PO Q6H PRN PRN (Reason: Pain) 3 Days Qty: 10 0RF furosemide 40 mg tablet 40 mg PO QAM Qty: 90 3RF fluticasone furoate-vilanterol [Breo Ellipta] 100-25 mcg/dose blister with device 1 inh inhalation DAILY Qty: 60 6RF Primary Care Provider: Ken Contreras Referrals: Ken Contreras MD [Primary Care Provider] - 1 Week if not improving Activity Restrictions/Additional Instructions: 1. Expect to feel worse over the next 24 to 48 hours. 2. Do not be surprised if you have heard in more places than you presently do over the next day or 2 3. You will hurt for 3 to 7 days 4. Apply ice to areas of discomfort. Application heat will make your pain worse. Print Language: Liberian Disposition Disposition: Home, Self Care
[2025-02-15 15:49] VITALS: O2SAT 94
[2025-02-15 16:03] VITALS: BMI 31.1
[2025-02-15 16:13] VITALS: BP 127/70; PULSE 59; RESP 18; O2SAT 97
--- NOTE | 2025-02-15 16:40 | RAD_ITS ---
PROCEDURE: LUMBAR SPINE 2 OR 3 VIEWS 02/15/2025 REASON FOR EXAM: INJURY/PAIN TECHNIQUE: 3 view(s) of the lumbar spine COMPARISON: None. FINDINGS: No evidence of acute fracture or dislocation. Moderate discogenic degenerative changes of the visualized spine. Moderate lumbar facet arthropathy. Grade 1 anterolisthesis of L5 on S1. Levoscoliosis. Cholecystectomy clips. RAD/Lumbar Spine 2 or 3 Views IMPRESSION: No acute osseous abnormality. Spondylosis. Spondylolisthesis. Scoliosis. Reading Location: [place] [id number]
[2025-02-15 17:49] VITALS: BP 116/68; PULSE 61; RESP 18; TEMP 36.8; O2SAT 96
== END 2025-02-15 17:53 | disposition home or self-care (01) ==
PROVIDERS: Emergency Provider Emergency Medicine; PCP Internal Medicine; Referring Provider Emergency Medicine; Visit Provider Emergency Medicine
DX: S09.90XA Unspecified injury of head, initial encounter (principal); J44.89 Other specified chronic obstructive pulmonary disease; S39.012A Strain of muscle, fascia and tendon of lower back, initial encounter; Z79.82 Long term (current) use of aspirin; W01.0XXA Fall on same level from slipping, tripping and stumbling without subsequent striking against object, initial encounter; S16.1XXA Strain of muscle, fascia and tendon at neck level, initial encounter; I10 Essential (primary) hypertension; K21.9 Gastro-esophageal reflux disease without esophagitis; Z87.891 Personal history of nicotine dependence; E03.9 Hypothyroidism, unspecified; I25.2 Old myocardial infarction; Z95.0 Presence of cardiac pacemaker; Z90.49 Acquired absence of other specified parts of digestive tract; G44.319 Acute post-traumatic headache, not intractable
CPT/HCPCS: 70450; 72100; 72125; 99282

== ENCOUNTER → 2025-03-08 | Outpatient (CLI) | payer MEDICARE, BC, SELFPAY ==
--- OUTSIDE RECORDS SUMMARY | 2025-03-08 07:33 | XMS RPT_ITS | CCD ---
Author Organization [facility] ion Partnership [facility] Care Team Providers Care [employer] Principal Name Role Phone Jayde Greenberg Unavailable Unavailable YorkJayde L Unavailable Unavailable Yensho BOARDING KENNEL OR CATTERY OPERATOR, Taylor A Unavailable Unavailab le Rajesh TODD, Taylor A Unavailable Unavailab Ken Maldonado MD Primary Care Provider Eseiscaroline, Marquise F Unavailable Dr. Ken Contreras Primary Care Provider Dr. Ken Contreras Referring Provider Sma STEVE, PA Latonya Valdez Attending Provider Dr. Marquise Javed Attending Provider Dr. Marquise Javed Referring Provider Dr. Guzman Jolly Referring Provider Dr. Guzman Jolly Other Provider Dr. Epifanio Witt Attending Provider Ken Contreras MD Primary Care Provider Eseiscaroline, Marquise F Unavailable Tello, Marquise F Unavailable Ken Contreras MD Primary Care Provider Eseiscaroline, Marquise F Unavailable Dr. Ken Contreras Primary Care Provider Dr. Ken Contreras Referring Provider Taylor Arce Attending Provider Unavailable Radha MANAGER OF TIRES SALES, CARMELO Bonilla Attending Provider Radha MANAGER OF TIRES SALES, MANAGER OF TIRES SALES-C Irene Referring Provider Dr. Ken Contreras Primary Care Provider Dr. Zane Mcpherson Attending Provider Dr. Zane Mcpherson Referring Provider Dr. Ken Contreras Primary Care Provider Dr. Ken Contreras Referring Provider Dr. Jaswant Miller Attending Provider Dat MANAGER OF TIRES SALES, MANAGER OF TIRES SALES-C Amanda Attending Provider Tello TONEY, Marquise Ivey Unavailable Cleopatra, Dr. Rogers Primary Care Provider Cleopatra, Dr. Rogers Referring Provider Taylor Arce Attending Provider Unavailable Dat MANAGER OF TIRES SALES, MANAGER OF TIRES SALES-C Amanda Attending Provider Rip Davenport RN, Maddie Unavailable Rip Davenport RN, Maddie Unavailable Ken Contreras MD Primary Care Provider AILYN BONNER Referring Unavailable CONTRERAS, TRUONG Primary Care Unavailable TITUS VAZQUEZNA Attending Unavailable CONTRERAS, TRUONG Primary Care Unavailable MICHELLE VAZQUEZ Attending Unavailable CONTRERAS, TRUONG Primary Care Unavailable MICHELLE VAZQUEZ Attending Unavailable CONTRERAS, TRUONG Primary Care Unavailable DULCE VALLEJO Referring Unavailable CONTRERAS, TRUONG Primary Care Unavailable WEN GALICIA Attending UnavailZAMZAM Kumar Admitting Unavailable ZAMZAM WOODS Consulting Unavailable CONTRERAS, TRUONG Primary Care Unavailable ARACELIS PORTILLO Attending Unavailable CONTRERAS, TRUONG Primary Care Unavailable TREMAINE LANDON Attending Unavailable CONTRERAS, TRUONG Primary Care Unavailable Hussain TITLE INSURANCE SALES REPRESENTATIVE.MICROBIOLOGICAL LABORATORY TECHNICIAN, Dia M Unavailable Dora RAPP, Najma Hudson Unavailable Unavailable Contreras MD, Dr. Rogers Primary Care Provider Dale TONEY, Dr. Kulkarni Attending Provider Dale TONEY, Dr. Kulkarni Emergency Provider Cleopatra TONEY, Dr. Rogers Attending Provider Jose Antonio HARRIS, Dr. Ibrahim Attending Provider Jose Antonio HARRIS, Dr. Ibrahim Emergency Provider Vida TONEY, Dr. Degroot Attending Provider Vida TONEY, Dr. Degroot Referring Provider Riaz TONEY, Dr. Forte Attending Provider [phone] Riaz TONEY, Dr. Forte Referring Provider [phone] Latonya Chen Attending Provider [phone] Latonya Chen Referring Provider [phone] Dora RAPP, Najma Hudson Unavailable Unavailable Cleopatra TONEY, Dr. Rogers Primary Care Provider Vida TONEY, Dr. Degroot Attending Provider Erik TONEY, Dr. Ley Referring Provider Erik TONEY, Dr. Ley Emergency Provider CAMI MARS Referring Unavailable CONTRERAS, KEN Brody Primary Care Unavailable IRIS DELEON Referring Unavailable CONTRERAS, KEN Brody Primary Care Unavailable JACKIE LAINEZ Attending Unavailable IRIS DELEON Referring Unavailable CONTRERAS, KEN Brody Primary Care Unavailable IRIS DELEON Referring Unavailable CONTRERAS, KEN Brody Primary Care Unavailable JACKIE LAINEZ Attending Unavailable KEN CONTRERAS Attending Unavailable CONTRERAS, TRUONG Primary Care Unavailable CONTRERAS, TRUONG Primary Care Unavailable CONTRERAS, TRUONG Referring Unavailable GANTA, CAMI Referring Unavailable CONTRERAS, TRUONG Primary Care Unavailable DIA LOPEZ Referring Unavailable CONTRERAS, TRUONG Primary Care Unavailable ASHELY MILLER Attending Unavailable CONTRERAS, TRUONG Primary Care Unavailable CONTRERAS, KEN Brody Referring Unavailable EDMUNDOOWERAILYN Referring Unavailable AILYN BONNER Attending Unavailable CONTRERAS, KEN Brody Primary Care Unavailable DIA LOPEZ Referring Unavailable CONTRERAS, KEN Brody Primary Care Unavailable HUSSAINDIA CRAWFORD Referring Unavailable CONTRERAS, KEN Brody Primary Care Unavailable RHODA ALCAZAR Attending Unavailable CAMI MARS Referring Unavailable CONTRERAS, KEN Brody Primary Care Unavailable CONTRERAS, KEN Brody Attending Unavailable CONTRERAS, KEN Brody Primary Care Unavailable HUSSAINDIA CRAWFORD Attending Unavailable CONTRERAS, KEN Brody Primary Care Unavailable CONTRERAS, KEN Brody Primary Care Unavailable CONTRERAS, KEN Brody Attending Unavailable CONTRERAS, KEN Brody Primary Care Unavailable RUBEN FERRARA Attending Unavailable CONTRERAS, KEN Brody Referring Unavailable CONTRERAS, KEN Brody Referring Unavailable CONTRERAS, KEN Brody Primary Care Unavailable CONTRERAS, KEN Brody Referring Unavailable CONTRERAS, KEN Brody Primary Care Unavailable CONTRERAS, KEN Brody Primary Care Unavailable JYOTSNA DONOHUE Attending Unavailable IRIS DELEON Referring Unavailable CONTRERAS, KEN Brody Primary Care Unavailable JACKIE LAINEZ Attending Unavailable IRIS DELEON Referring Unavailable CONTRERAS, KEN Brody Primary Care Unavailable CAMI MARS Attending Unavailable CLEOPATRA, EKN Brody Primary Care Unavailable CONTRERAS, KEN Brody Primary Care Unavailable KAYA CARTWRIGHT JR Referring Unavailable CONTRERAS, KEN Brody Attending Unavailable CONTRERAS, KEN Brody Primary Care Unavailable CAMI MARS Attending Unavailable CONTRERAS, KEN Brody Primary Care Unavailable CONTRERAS, KEN Brody Referring Unavailable CONTRERAS, KEN Brody Attending Unavailable CONTRERAS, KEN Brody Primary Care Unavailable DIA LOPEZ Attending Unavailable CONTRERAS, KEN Brody Primary Care Unavailable AILYN BONNER Referring Unavailable NAIN, AILYN Valdez Attending Unavailable CONTRERAS, KEN Brody Primary Care Unavailable DIA LOPEZ Attending Unavailable CONTRERAS, KEN Brody Primary Care Unavailable AILYN BONNER Referring Unavailable KAYA CARTWRIGHT JR Attending Unavailable CONTRERAS, KEN Brody Primary Care Unavailable CAMI MARS Referring Unavailable CONTRERAS, KEN Brody Primary Care Unavailable Contreras, Ekn Primary Care Unavailable Jann Mello Attending Unavailable Jann Mello Referring Unavailable Contreras, Ken Attending Unavailable Contreras, Ken Primary Care Unavailable Contreras, Ken Attending Unavailable Contreras, Ken Referring Unavailable Contreras, Ken Primary Care Unavailable Latonya Vargas Attending Unavailabl e Sam, Latonya Valdez Referring Unavailabl e Contreras, Ken Primary Care Unavailable Contreras, Ken Primary Care Unavailable Vida, Grinnell Attending Unavailable Vida, Grinnell Referring Unavailable Contreras, Ken Primary Care Unavailable Vida, Zane Attending Unavailable Vida, Zane Referring Unavailable Contreras, Ken Primary Care Unavailable Contreras, Ken Referring Unavailable Vida, Zane Attending Unavailable Vida, Grinnell Attending Unavailable Contreras, Ken Primary Care Unavailable Vida, Zane Referring Unavailable Vida, Zane Attending Unavailable Contreras, Ken Primary Care Unavailable Contreras, Ken Primary Care Unavailable Kaya Cartwright Attending Unavailable Kaya Cartwright Referring Unavailable Vida, Zane Attending Unavailable Contreras, Ken Primary Care Unavailable Vida, Zane Referring Unavailable Contreras, Ken Primary Care Unavailable Valencia, Av Attending Unavailable Valencia, Av Referring Unavailable Shad Hunter Attending Unavailable Contreras, Ken Primary Care Unavailable Contreras, Ken Primary Care Unavailable Patrice Brady Attending Unavailable Allergies Allergy Classification Reported Allergen(s) Allergy Type Date of Onset Reaction(s) Facility (4 sources) ciprofloxacin Drug Allergy 11-28-19 17 itching [facility] Work Phone: (20 sources) penicillAMINE; Translations: [PENICILLAMINE] Drug Allergy 11-28-19 17 Unknown [facility] Work Phone: (20 sources) Shellfish; Translations: [SHELLFISH] drug allergy 03-17-20 05 Shortness of Breath [facility] Work Phone: (4 sources) SULFACLEANSE 8/4 drug allergy 11-28-19 17 upset stomach [facility] Work Phone: (9 sources) Budesonide / formoterol; Translations: [BUDESONIDE-FORMOT EMA] Drug Allergy 11-28-19 10 Intolerance [facility] (20 sources) Cat; Translations: [CATS] Propensity to adverse reactions 12-20-19 [facility] Work Phone: (20 sources) Ciprofloxacin; Translations: [CIPROFLOXACIN] Drug Allergy 03-17-20 05 Itching [facility] (20 sources) diphenhydrAMINE; Translations: [DIPHENHYDRAMINE HCL] Drug Allergy 10-05-19 18 Rash [facility] (20 sources) Dust; Translations: [DUST] Propensity to adverse reactions 12-20-19 [facility] Work Phone: (20 sources) Ketamine; Translations: [KETAMINE] Drug Allergy 04-07-20 19 Unknown [facility] (20 sources) Mold Extract; Translations: [MOLD] Drug Allergy 08-06-20 06 [facility] (18 sources) Penicillins; Translations: [PENICILLINS] Propensity to adverse reactions 03-17-20 05 [facility] (20 sources) Shellfish; Translations: [SHELLFISH CONTAINING PRODUCTS] Drug Allergy 11-28-19 17 Unknown [facility] (20 sources) Sulfonamides (Antibiotic); Translations: [SULFA (SULFONAMIDE ANTIBIOTICS)] Drug Intolerance 12-15-19 12 GI Upset [facility] (20 sources) tetanus toxoid vaccine, inactivated; Translations: [TETANUS TOXOID ADSORBED] Drug Allergy 10-14-19 08 Intolerance [facility] (20 sources) tiotropium; Translations: [TIOTROPIUM BROMIDE] Drug Allergy 04-13-20 08 Intolerance [facility] (20 sources) Tree's [Other] Propensity to adverse reactions 12-20-19 [facility] Work Phone: (11 sources) diphenhydrAMINE Drug Allergy 10-01-19 22 Rash [facility] (12 sources) Shellfish; Translations: [shellfish derived] Allergy to substance 10-01-19 22 Anaphylaxis [facility] (11 sources) tiotropium Drug Allergy 10-01-19 22 Other [facility] (20 sources) Penicillins Propensity to adverse reactions 03-17-20 05 Rash [facility] (20 sources) Budesonide / formoterol Drug Allergy 11-28-19 10 Intolerance [facility] (9 sources) Penicillins Allergy to substance 12-13-20 22 Hives [facility] (9 sources) Sulfonamides (Antibiotic) Allergy to substance 08-19-20 Upset Stomach [facility] (20 sources) Penicillins Propensity to adverse reactions 03-17-20 05 Rash [facility] (1 source) Ciprofloxacin Drug Allergy 02-16-20 [facility] (1 source) diphenhydrAMINE Drug Allergy 02-16-20 [facility] (1 source) Ketamine Drug Allergy 02-16-20 [facility] (1 source) Penicillins Drug allergy (disorder) 02-16-20 [facility] (1 source) Sulfonamides (Antibiotic) Drug allergy (disorder) 02-16-20 [facility] (1 source) tiotropium Drug Allergy 02-16-20 [facility] Medications Current Medications Medication Drug Class(es) Dates Sig (Normalized) Sig (Original) acetaminophen 500 mg oral tablet (20 sources) Start: 10-05-2023 take 2 tablets by mouth every eight hours as needed acetaminophen (TYLENOL) 500 mg tablet Take 2 tablets by mouth every 8 hours as needed for pain. 10/05/2023 Active Start: 01-08-2017 End: 10-05-2023 take 1 tablet by mouth once daily at bedtime acetaminophen (TYLENOL ARTHRITIS PAIN) 650 mg CR tablet Take 1 tablet by mouth daily at bedtime. 0 01/08/2017 10/05/2023 Discontinued Start: 11-17-2016 take 2 tablets by mo ut at bedtime Acetaminophen 325 MG tablet Active 650 mg PO AT BEDTIME November 17, 2016 12:00am Start: 11-17-2016 take 650 mg by mouth at bedtim e Acetaminophen Active 650 MG PO AT BEDTIME November 16, 2016 11:00pm Comment on above: Take 1 tablet by mervin daily at bedtime. Take 2 tablets by mo uth every 8 hours as needed for pain. acetaminophen 325 mg / HYDROcodone bitartrate 5 mg oral tablet (5 sources) Opioid Agonist Start: 11-24-2024 End: 11-29-2024 take 1 tablet by mouth every eight hours as needed for pain HYDROcodone-acet aminophen (NORCO) 5-325 mg per tablet Indications: Hip pain, left Take 1 tablet by mouth every 8 hours as needed for pain for up to 5 days. 15 tablet 11/24/2024 11/29/2024 Active Start: 08-08-2024 take 1 tablet by mervin th every six hours as needed for pain Hydrocodone-Acetaminophen 5-325 mg table t Active 1 {tbl} PO EVERY 6 HOURS NEEDED as needed for Pain 10 3 August 08, 2024 ascorbic acid 250 mg oral tablet (9 sources) Vitamin C Start: 08-19-2022 take 1 tablet by mouth twice daily Ascorbic Acid (Vitamin C) 250 mg tablet Active 250 mg PO TWICE A DAY August 19, 2022 1:00am aspirin 81 mg delayed release oral tablet (20 sources) Platelet Aggregation Inhibitor, Nonsteroidal Anti-inflammatory Drug Start: 10-29-2023 take 1 tablet by mouth once daily aspirin, enteric coated (ASPIRIN, ENTERIC COATED) 81 mg EC tablet Take 1 tablet by mouth once daily. 10/29/2023 Active Start: 11-27-2017 End: 10-05-2023 take 1 tablet by mouth once daily aspirin, enteric coated (ASPIRIN, ENTERIC COATED) 81 mg EC tablet Take 1 tablet by mouth once daily. 10/29/2023 Active Comment on above: Take 81 mg by mouth once daily. Take 1 tablet by mervin th once daily. azithromycin 250 mg oral tablet (20 sources) Macrolide Antimicrobial Start: 04-11-2022 End: 04-16-2022 azithromycin (ZITHROMAX Z-WILL) 250 mg tablet Indications: Acute otitis media, unspecified otitis media type Take 2 tablets day one, then, 1 tablet daily until gone. 6 tablet 0 04/11/2022 04/16/2022 Active Start: 03-29-2019 End: 04-07-2019 take 1 tablet by mouth once daily Azithromycin 250 mg tablet Discontinued 250 mg PO daily March 29, 2019 12:00am April 07, 2019 1:49pm Start: 07-27-2017 AZITHROMYCIN 2 50 MG TABS 2 tablets by mouth today and then 1 tablet daily for the next 4 days AZITHROMYCIN [id number] Irene Garcia CNP Start: 03-18-2017 End: 04-15-2017 AZITHROMYCIN 250 MG TABS 2 t ablets by mouth today and then 1 tablet daily for the next 4 days AZITHROMYCIN [id number] Irene Garcia CNP Start: 02-23-2017 End: 03-05-2017 AZITHROMYCIN 250 MG TABS 2 t ablets by mouth today and then 1 tablet daily for the next 4 days AZITHROMYCIN [id number] Jaswant Miller DO Comment on above: Take 2 tablets day o ne, then, 1 tablet daily until gone. baclofen 5 mg oral tablet (20 sources) gamma-Aminobutyric Acid-ergic Agonist Start: 11-05-2023 End: 09-04-2024 take 1 tablet by mouth twice daily baclofen 5 mg tablet Indications: DDD (degenerative disc disease), lumbar Take 1 tablet by mouth two times a day. 180 tablet 1 09/05/2024 Active Start: 09-17-2022 End: 11-03-2023 take 1 tablet by mouth twice daily baclofen 5 mg tablet Indications: DDD (degenerative disc disease), lumbar Take 1 tablet by mouth two times a day. 180 tablet 3 10/14/2023 11/03/2023 Discontinued Start: 08-01-2022 End: 09-15-2022 take 1 tablet by mouth twice daily baclofen (LIORESAL) 5 mg tablet Indications: DDD (degenerative disc disease), lumbar Take 1 tablet by mouth twice daily. 180 tablet 3 08/01/2022 09/15/2022 Discontinued Start: 07-02-2021 End: 08-01-2022 take 0.5 tablet by mouth twice daily baclofen (LIORESAL) 10 mg tablet Indications: DDD (degenerative disc disease), lumbar Take 0.5 tablets by mouth twice daily. 90 tablet 3 07/02/2021 08/01/2022 Discontinued (Changing Therapy/Dosage Form) Start: 11-24-2016 take 0.5 tablet by m out twice daily BACLOFEN 10 MG TABS Take 1/2 tab po twice daily BACLOFEN [id number] Jayde Barnes LPN Start: 11-17-2016 take 5 mg by mouth twice daily Baclofen 10 MG tablet Active 5 mg PO TWICE A DAY November 17, 2016 12:00am Start: 11-17-2016 take 5 mg by mouth twice daily Baclofen Active 5 MG PO TWICE A DAY November 16, 2016 11:00pm Comment on above: Take 0.5 tablets by mouth twice daily. Take 1 tablet by mervin th twice daily. Take 1 tablet by mervin th two times a day. brimonidine tartrate 2 mg/ml / timolol 5 mg/ml ophthalmic solution (20 sources) alpha-Adrenergic Agonist, beta-Adrenergic Júnior Start: 07-15-2022 brimonidine-timolol (COMBIGAN) 0.2-0.5 % ophthalmic solution Use 1 Drop in the left eye twice daily. 5 mL 1 07/15/2022 Active Start: 04-16-2022 End: 07-15-2022 brimonidine-timolol (COMBIGA N) 0.2-0.5 % ophthalmic solution Use 1 Drop in the left eye twice daily. 5 mL 1 07/15/2022 Active Start: 11-13-2021 End: 02-10-2022 brimonidine-timolol (COMBIGA N) 0.2-0.5 % ophthalmic solution Use 1 Drop in the left eye twice daily. 5 mL 1 11/13/2021 02/10/2022 Discontinued Start: 11-13-2021 End: 04-14-2022 brimonidine-timolol (COMBIGA N) 0.2-0.5 % ophthalmic solution Use 1 Drop in the left eye twice daily. 5 mL 1 02/10/2022 04/14/2022 Discontinued Start: 01-10-2021 take 0.2-0.5 drop(s) into the eye(s) twice daily Brimonidine-Timolol (Combigan) 0.2-0.5 % drops Active 1 NMA OPHTHALMIC TWICE A DAY January 10, 2021 12:00am Start: 01-10-2021 take 0.2-0.5 drop(s) into the eye(s) twice daily Brimonidine-Timolol (Combigan) 0.2-0.5 % drops Active 1 DRP OPHTHALMIC TWICE A DAY January 09, 2021 11:00pm Comment on above: Use 1 Drop in the le ft eye twice daily. 24 hr buPROPion hydrochloride 300 mg extended release oral tablet (12 sources) Aminoketone Start: take 1 tablet by mouth once daily buPROPion XL (WELLBUTRIN XL) 300 mg 24 hr tablet Indications: Depression, recurrent Take 1 tablet by mouth once daily. 30 tablet 1 02/02/2025 Active Start: 01-05-2025 End: 02-02-2025 take 1 tablet by mouth once daily buPROPion XL (WELLBUTRIN XL) 150 mg 24 hr tablet Indications: Depression, recurrent Take 1 tablet by mouth once daily. 30 tablet 1 01/05/2025 02/02/2025 Discontinued (Dosage adjustment) D-Mannose (7 sources) Start: 08-19-2022 D-Mannose Acti ve EACH PO August 19, 2022 1:00am Start: 08-19-2022 D-Mannose Acti ve EACH PO August 19, 2022 12:00am DULCOLAX, BISACODYL, ORAL (20 sources) DULCOLAX, BISACO DYL, ORAL Take 1 tablet by mouth as needed. Active DULCOLAX, BISACO DYL, ORAL Take 1 tablet by mouth as needed. 0 Active Comment on above: Take 1 tablet by mervin th as needed. ergocalciferol 1.25 mg oral capsule (20 sources) Provitamin D2 Compound Start: 04-04-2024 ergocalciferol 50,000 unit capsule (VITAMIN D2, DRISDOL) Indications: Vitamin D deficiency Take 1 capsule by mouth every 4 weeks. 3 capsule 3 04/04/2024 Active Start: 09-10-2022 Ergocalciferol (Vitamin D2) 1,250 mcg (50,000 unit) capsule Active 50821 U PO EVERY MONTH September 10, 2022 4:26pm Start: 09-10-2022 take 96742 [IU] by m outh every month Ergocalciferol (Vitamin D2) Active 63482 UNIT PO EVERY MONTH September 10, 2022 3:26pm Start: 01-23-2022 End: 04-02-2024 ergocalciferol 50,000 unit c apsule (VITAMIN D2, DRISDOL) Indications: Vitamin D deficiency Take 1 capsule by mouth every 4 weeks. 3 capsule 3 04/28/2023 Active Start: 01-10-2021 End: 09-10-2022 Ergocalciferol (Vitamin D2) 1,250 mcg (50,000 unit) capsule Discontinued 57006 U PO every 2 weeks January 10, 2021 10:43am September 10, 2022 4:27pm Start: 01-10-2021 End: 09-10-2022 take 72620 [IU] by mouth every other week Ergocalciferol (Vitamin D2) Discontinued [id number] UNIT PO every 2 weeks January 10, 2021 9:43am September 10, 2022 3:27pm Start: 11-17-2016 End: 01-10-2021 Ergocalciferol (Vitamin D2) 50,000 UNIT capsule Discontinued 66305 U PO MO November 17, 2016 12:00am January 10, 2021 10:49am Comment on above: Take 1 capsule by mo ut every 2 weeks. Take 1 capsule by mo uth every 4 weeks. estrogens, conjugated (senior care) 0.625 mg/ml vaginal cream (18 sources) Estrogen Start: 09-10-2022 End: 02-11-2024 Conjugated Estrogens 0.625 mg/gram cream Active 0.625 mg VAGINAL .3xweek February 11, 2024 2:26pm Three times a week Start: 08-19-2022 End: 09-10-2022 Conjugated Estrogens 0.625 m g/gram cream Discontinued 0.625 mg VAGINAL ONCE August 19, 2022 1:00am September 10, 2022 4:27pm 30 actuat fluticasone furoate 0.1 mg/actuat / vilanterol 0.025 mg/actuat dry powder inhaler (20 sources) Corticosteroid, beta2-Adrenergic Agonist Start: 02-11-2022 End: 08-22-2024 BREO ELLIPTA 100-25 mcg/dose inhaler Inhale 1 Inhalation as instructed once daily. 05/13/2024 Active Start: 02-11-2022 End: 01-09-2023 Fluticasone Furoate-Vilanter ol (Breo Ellipta) 100-25 mcg/dose blister with device Discontinued 1 INH INHALATION DAILY 60 January 07, 2023 10:02am January 09, 2023 6:03am Start: 10-22-2021 End: 05-13-2024 BREO ELLIPTA 100-25 mcg/dose inhaler 10/22/2021 05/13/2024 Discontinued (Adjust Sig - Block E-Cancel) Start: 01-29-2021 End: 04-02-2021 Fluticasone Furoate-Vilanter ol (Breo Ellipta) 100-25 mcg/dose blister with device Discontinued 1 NMA INHALATION DAILY 60 January 29, 2021 12:00am April 02, 2021 8:02am Start: 01-29-2021 End: 04-02-2021 Fluticasone Furoate-Vilanter ol (Breo Ellipta) 100-25 mcg/dose blister with device Discontinued 1 INH INHALATION DAILY 60 January 28, 2021 11:00pm April 02, 2021 7:02am fosfomycin 3000 mg powder for oral solution (2 sources) Start: 07-05-2022 End: 07-05-2022 take 1 dose by mouth once fosfomycin (MONUROL) 3 g pack Indications: Recurrent UTI Take 1 Packet by mouth one time only for 1 dose. 1 Packet 1 07/05/2022 07/05/2022 Active Start: 07-02-2022 End: 07-02-2022 take 1 dose by mouth once fosfomycin (MONUROL) 3 g pac k Indications: Recurrent UTI Take 1 Packet by mouth one time only for 1 dose. 1 Packet 0 07/02/2022 07/02/2022 Active Comment on above: Take 1 Packet by mervin one time only for 1 dose. furosemide 40 mg oral tablet (20 sources) Loop Diuretic Start: 07-04-2024 take 1 tablet by mouth once daily in the morning Furosemide 40 mg tablet Active 40 mg PO EVERY MORNING July 04, 2024 12:00am End: 10-11-2024 furosemide (LASIX) 40 mg/4 m L soln 10/11/2024 Discontinued (Duplicate Entry) furosemide (LASI X) 40 mg/4 mL soln Active ketotifen 0.25 mg/ml ophthalmic solution (15 sources) Histamine-1 Receptor Inhibitor Start: 01-10-2021 Ketotifen Fumarate 0.025 % (0.035 %) drops Active 1 NMA OPHTHALMIC TWICE A DAY January 10, 2021 12:00am administer at least 8 hours apart Start: 01-10-2021 Ketotifen Fuma rate Active 1 DRP OPHTHALMIC TWICE A DAY January 09, 2021 11:00pm administer at least 8 hours apart Start: 11-06-2020 End: 01-23-2022 ketotifen fumarate (ZADITOR) 0.025 % (0.035 %) ophthalmic solution Use 1 Drop in both eyes twice daily. 1 Bottle 2 11/06/2020 01/23/2022 Discontinued Comment on above: Use 1 Drop in both e yes twice daily. Lactobacillus Combination No.9 (Adult 50 Plus Probiotic) 4 billion cell capsule (9 sources) Start: take 4 capsules by mouth once daily Lactobacillus Combination No.9 (Adult 50 Plus Probiotic) 4 billion cell capsule Active 4000 NMA PO DAILY August 19, 2022 1:00am administer with a meal Start: 08-19-2022 take 4 capsules by m outh once daily Lactobacillus Combination No.9 (Adult 50 Plus Probiotic) 4 billion cell capsule Active 4000 MMU CELLS PO DAILY August 19, 2022 1:00am administer with a meal Start: 08-19-2022 take 4 capsules by m outh once daily Lactobacillus Combination No.9 (Adult 50 Plus Probiotic) 4 billion cell capsule Active 4000 MMU CELLS PO DAILY August 19, 2022 12:00am administer with a meal lamoTRIgine 25 mg oral tablet (20 sources) Mood Stabilizer, Anti-epileptic Agent Start: 11-02-2024 take 1 tablet by mouth once daily lamoTRIgine (LAMICTAL) 25 mg tablet Indications: Depressive disorder Take 1 tablet by mouth once daily. 90 tablet 3 11/02/2024 Active Start: 11-05-2023 End: 10-30-2024 take 1 tablet by mouth once daily lamoTRIgine (LAMICTAL) 25 mg tablet Indications: Depressive disorder Take 1 tablet by mouth once daily. 90 tablet 3 11/05/2023 10/30/2024 Discontinued Start: 09-17-2022 End: 11-03-2023 take 1 tablet by mouth once daily lamoTRIgine (LAMICTAL) 25 mg tablet Indications: Depressive disorder Take 1 tablet by mouth once daily. 90 tablet 3 12/30/2022 11/03/2023 Discontinued Start: 07-25-2021 End: 09-15-2022 take 1 tablet by mouth once daily lamoTRIgine (LAMICTAL) 25 mg tablet Indications: Depressive disorder Take 1 tablet by mouth once daily. 90 tablet 3 07/25/2021 08/01/2022 Discontinued Start: 11-27-2017 take 1 tablet by mervin th once daily Lamotrigine 25 MG tablet extended release 24hr Active 25 mg PO DAILY November 27, 2017 12:00am Comment on above: Take 1 tablet by mervin th once daily. latanoprost 0.05 mg/ml ophthalmic solution (20 sources) Prostaglandin Analog Start: take 1 drop(s) into the eye(s) once daily at bedtime latanoprost (XALATAN) 0.005 % ophthalmic solution Use 1 Drop in both eyes daily at bedtime. 5 mL 2 06/18/2022 Active Start: 09-27-2021 End: 02-10-2022 take 1 drop(s) into the eye(s) once daily at bedtime latanoprost (XALATAN) 0.005 % ophthalmic solution Use 1 Drop in both eyes daily at bedtime. 5 mL 2 09/27/2021 02/10/2022 Discontinued Start: 09-27-2021 End: 06-18-2022 take 1 drop(s) into the eye(s) once daily at bedtime latanoprost (XALATAN) 0.005 % ophthalmic solution Use 1 Drop in both eyes daily at bedtime. 5 mL 2 06/18/2022 Active Start: 01-10-2021 Latanoprost 0. 005 % drops, emulsion Active 1 NMA OPHTHALMIC EVERY EVENING January 10, 2021 12:00am Comment on above: Use 1 Drop in both e yes daily at bedtime. lisinopril 40 mg oral tablet (20 sources) Angiotensin Converting Enzyme Inhibitor Start: 11-02-2024 take 1 tablet by mouth once daily lisinopril (ZESTRIL) 40 mg tablet Take 1 tablet by mouth once daily. 90 tablet 3 11/02/2024 Active Start: 10-19-2020 End: 10-30-2024 take 1 tablet by mouth once daily lisinopril (ZESTRIL) 40 mg tablet Take 1 tablet by mouth once daily. 90 tablet 3 11/02/2024 Active Start: 11-17-2016 End: 01-10-2021 take 1 tablet by mouth once daily Lisinopril 10 MG tablet Discontinued 10 mg PO DAILY November 17, 2016 12:00am January 10, 2021 10:46am Comment on above: Take 1 tablet by mervin th once daily. loratadine 10 mg oral tablet (20 sources) Start: 12-27-2020 take 1 tablet by mouth once daily Loratadine (Claritin) 10 mg tablet Active 10 mg PO DAILY December 27, 2020 12:00am Start: 01-05-2020 take 1 tablet by mervin th once daily as needed loratadine (CLARITIN REDITABS) 10 mg dissolvable tablet Take 1 tablet by mouth once daily as needed (allergies). 01/05/2020 Active Comment on above: Take 1 tablet by mervin th once daily as needed (allergies). meloxicam 15 mg oral tablet (20 sources) Nonsteroidal Anti-inflammatory Drug Start: 11-27-2017 End: 11-02-2025 take 1 tablet by mouth once daily meloxicam (MOBIC) 15 mg tablet Take 1 tablet by mouth once daily. 90 tablet 3 11/02/2024 11/02/2025 Active Start: 11-17-2016 End: 11-19-2016 take 1 tablet by mouth once daily Meloxicam (Mobic) 15 MG tablet Discontinued 15 mg PO DAILY November 17, 2016 12:00am November 19, 2016 12:26pm Comment on above: Take 1 tablet by mervin th once daily. Multivitamin 1 EACH tablet (2 sources) Start: 11-18-19 17 Multivitamin 1 EACH tablet Active 1 {tbl} PO DAILY November 17, 2016 12:00am MULTIVITAMIN TAB (20 sources) Start: 11-14-19 06 MULTIVITAMIN TAB Take one(1) tablet daily. 0 11/13/2005 Active Comment on above: Take one(1) tablet d aily. pantoprazole 20 mg delayed release oral tablet (20 sources) Proton Pump Inhibitor Start: 11-02-19 25 take 2 tablets by mouth once daily pantoprazole DR (PROTONIX) 20 mg tablet Indications: Gastroesophageal reflux disease with esophagitis Take 2 tablets by mouth once daily. 180 tablet 3 11/02/2024 Active Start: 11-05-2023 End: 10-30-2024 take 2 tablets by mouth once daily pantoprazole DR (PROTONIX) 20 mg tablet Indications: Gastroesophageal reflux disease with esophagitis Take 2 tablets by mouth once daily. 180 tablet 3 11/05/2023 10/30/2024 Discontinued Start: 09-17-2022 End: 11-03-2023 take 2 tablets by mouth once daily pantoprazole DR (PROTONIX) 20 mg tablet Indications: Gastroesophageal reflux disease with esophagitis Take 2 tablets by mouth once daily. 180 tablet 3 10/14/2023 11/03/2023 Discontinued Start: 01-10-2021 End: 09-15-2022 take 2 tablets by mouth once daily pantoprazole DR (PROTONIX) 20 mg tablet Indications: Gastroesophageal reflux disease with esophagitis Take 2 tablets by mouth once daily. 180 tablet 3 07/21/2022 09/15/2022 Discontinued Start: 01-10-2021 take 40 mg by mouth once daily Pantoprazole Active 40 MG PO DAILY January 09, 2021 11:00pm Start: 11-24-2016 [facility] 40 MG PACK One tablet by mouth daily PANTOPRAZOLE SODIUM [id number] Jayde Rodriguez Molly TODD Start: 11-17-2016 End: 01-10-2021 Pantoprazole 40 MG tablet Di scontinued 20 mg PO TWICE A DAY November 17, 2016 12:00am January 10, 2021 10:47am Start: 11-17-2016 End: 01-10-2021 take 20 mg by mouth twice daily Pantoprazole Discontinued 20 MG PO TWICE A DAY November 16, 2016 11:00pm January 10, 2021 9:47am Comment on above: Take 2 tablets by mo [facility] once daily. PARoxetine hydrochloride 40 mg oral tablet (20 sources) Serotonin Reuptake Inhibitor Start: take 1 tablet by mouth once daily PARoxetine (PAXIL) 40 mg tablet Indications: Depressive disorder , Anxiety Take 1 tablet by mouth once daily. 90 tablet 3 11/02/2024 Active Start: 11-05-2023 End: 10-30-2024 take 1 tablet by mouth once daily PARoxetine (PAXIL) 40 mg tablet Indications: Depressive disorder , Anxiety Take 1 tablet by mouth once daily. 90 tablet 3 11/05/2023 10/30/2024 Discontinued Start: 09-17-2022 End: 11-03-2023 take 1 tablet by mouth once daily PARoxetine (PAXIL) 40 mg tablet Indications: Depressive disorder , Anxiety Take 1 tablet by mouth once daily. 90 tablet 3 10/14/2023 11/03/2023 Discontinued Start: 01-13-2022 End: 09-15-2022 take 1 tablet by mouth once daily PARoxetine (PAXIL) 40 mg tablet Indications: Anxiety , Depressive disorder Take 1 tablet by mouth once daily. 90 tablet 3 01/13/2022 09/15/2022 Discontinued Start: 01-17-2021 take 1 tablet by mervin th once daily PARoxetine (PAXIL) 40 mg tablet Indications: Anxiety , Depressive disorder Take 1 tablet by mouth once daily. 90 tablet 3 01/17/2021 Active Start: 11-24-2016 take 1 tablet by mervin th once daily PAXIL 40 MG TABS One tablet by mouth daily PAROXETINE HCL [id number] Jayde Barnes LPN Start: 11-17-2016 take 4 tablets by mo uth once daily Paroxetine Hcl 10 MG tablet Active 40 mg PO DAILY November 17, 2016 12:00am Start: 11-17-2016 take 40 mg by mouth once daily Paroxetine Hcl Active 40 MG PO DAILY November 16, 2016 11:00pm Comment on above: Take 1 tablet by mervin th once daily. polyethylene glycol 3350 48630 mg powder for oral solution (20 sources) Osmotic Laxative Start: 05-27-2017 take 17 g by mouth once daily Polyethylene Glycol 3350 17 GM packet Active 17 g PO DAILY May 27, 2017 12:00am Start: 09-23-2016 polyethylene g lycol 3350 (MIRALAX, GLYCOLAX) 17 gram/dose powder Drink a mix of 1 scoop in 8oz of water/beverage once daily as needed for constipation. 1 Bottle 09/23/2016 Active Comment on above: Drink a mix of 1 sco op in 8oz of water/beverage once daily as needed for constipation. levothyroxine sodium 0.088 mg oral tablet (20 sources) l-Thyroxine Start: 11-02-19 25 take 1 tablet by mouth five times weekly levothyroxine (SYNTHROID) 88 mcg tablet Indications: Acquired hypothyroidism Take 1 tablet by mouth five times a week. Mondays thru Fridays. None on Saturdays and Sundays. 66 tablet 1 11/02/2024 Active Start: 11-24-2016 SYNTHROID 88 M CG TABS Half tab PO on saturdays, 1 full tab PO thursday, thursday, thursday, , thursday and sundays LEVOTHYROXINE SODIUM [id number] Jayde Barnes LPN Start: 11-17-2016 End: 10-30-2024 take 1 tablet by mouth five times weekly levothyroxine (SYNTHROID) 88 mcg tablet Indications: Acquired hypothyroidism Take 1 tablet by mouth five times a week. Mondays thru Fridays. None on Saturdays and Sundays. 66 tablet 1 11/02/2024 Active Start: 11-17-2016 End: 07-01-2024 levothyroxine (SYNTHROID) 88 mcg tablet Indications: Acquired hypothyroidism TAKE 1 TABLET DAILY EXCEPT DO NOT TAKE ON SUNDAYS. TAKE ON AN EMPTY STOMACH 78 tablet 3 11/05/2023 02/13/2024 Discontinued Start: 11-17-2016 End: 01-10-2021 Levothyroxine 88 MCG tablet Discontinued 44 ug PO November 17, 2016 12:00am January 10, 2021 10:46am Start: 11-17-2016 End: 01-10-2021 Levothyroxine Discontinued 4 4 MCG PO November 16, 2016 11:00pm January 10, 2021 9:46am Comment on above: TAKE 1 TABLET DAILY EXCEPT DO NOT TAKE ON SUNDAYS. TAKE ON AN EMPTY STOMACH 1 ml triamcinolone acetonide 40 mg/ml injection (20 sources) Corticosteroid Start: 12-14-2024 End: 12-15-2024 triamcinolone acetonide 40 mg injection (KeNALog 40) Start: 04-15-2021 End: 11-09-2023 triamcinolone (KENALOG) 0.02 5 % cream Apply to affected area once daily. 15 g 04/15/2021 11/09/2023 Discontinued (Course of therapy completed) Comment on above: Apply to affected ar ea once daily. Vibegron (11 sources) Start: 08-07-2021 take 1 tablet by mouth once daily Vibegron (Gemtesa) 75 mg tablet Active 75 MG PO DAILY August 07, 2021 2:35pm Start: 08-07-2021 take 1 tablet by mervin th once daily Vibegron (Gemtesa) 75 mg tablet Active 75 mg PO DAILY August 07, 2021 1:00am Start: 08-07-2021 take 1 tablet by mervin th once daily Vibegron (Gemtesa) 75 mg tablet Active 75 MG PO DAILY August 07, 2021 1:00am Start: 08-07-2021 take 1 tablet by mervin th once daily Vibegron (Gemtesa) 75 mg tablet Active 75 MG PO DAILY August 07, 2021 12:00am vibegron (GEMTESA) 75 mg tablet (20 sources) Start: 09-30-2023 take 1 tablet by mouth once daily vibegron (GEMTESA) 75 mg tablet Take 1 tablet by mouth once daily. Prescribed by Dr. Hansen 09/30/2023 Active Start: 09-30-2023 take 1 tablet by mervin th once daily vibegron (GEMTESA) 75 mg tablet Take 1 tablet by mouth once daily. Prescribed by Dr. Hansen 0 09/30/2023 Active Comment on above: Take 1 tablet by mervin th once daily. Prescribed by Dr. Hansen vit C/E/zinc ox/trevor/lut/zeax (ICAPS AREDS2 ORAL) (20 sources) Start: 03-01-2020 vit C/E/zinc ox/trevor/lut/zeax (ICAPS AREDS2 ORAL) 03/01/2020 Active Start: 03-01-2020 vit C/E/zinc o x/trevor/lut/zeax (ICAPS AREDS2 ORAL) Completed/Discontinued Medications Medication Drug Class(es) Dates Sig (Normalized) Sig (Original) albuterol 0.83 mg/ml inhalation solution (20 sources) beta2-Adrenergic Agonist Start: 12-31-2020 End: 12-31-2020 albuterol sulfate Discontinued 2.5 MG continuous nebulization ONCE 1 December 31, 2020 8:54am December 31, 2020 10:11am Start: 12-31-2020 End: 01-23-2022 take 2.5 mg by inhalation every four hours as needed for wheezing Albuterol Sulfate 2.5 mg /3 mL (0.083 %) solution for nebulization Discontinued 2.5 mg INHALATION Q4H as needed for Sob &/Or Wheezing 180 December 31, 2020 4:32pm January 10, 2021 10:49am Start: 11-20-2020 End: 02-11-2022 Albuterol Sulfate 90 mcg/act uation HFA aerosol inhaler Active 1 - 2 NMA INHALATION EVERY 4 HOURS NEEDED as needed for Shortness Of Breath February 11, 2022 2:20pm Start: 11-20-2020 End: 02-11-2022 take 1 puff(s) by inhalation every four hours as needed Albuterol Sulfate Active 1 - 2 PUFF INHALATION EVERY 4 HOURS NEEDED February 11, 2022 1:20pm Start: 09-23-2017 End: 11-20-2020 Albuterol Sulfate 1 INHALER inhaler Discontinued 1 - 2 NMA INHALATION EVERY 4 HOURS NEEDED as needed for Shortness Of Breath September 23, 2017 3:39pm November 20, 2020 11:56am Start: 09-23-2017 End: 11-20-2020 take 1 puff(s) by inhalation every four hours as needed Albuterol Sulfate Discontinued 1 - 2 PUFF INHALATION EVERY 4 HOURS NEEDED September 23, 2017 2:39pm November 20, 2020 10:56am Start: 04-15-2017 PROAIR HFA 108 (90 Base) MCG/ACT AERS 2 puffs every 4 hours as needed ALBUTEROL SULFATE [id number] Lory Rasheed Start: 11-24-2016 End: 07-24-2017 take 1-2 puff(s) by inhalation every four hours as needed VENTOLIN HFA 108 (90 Base) MCG/ACT AERS INH 1-2 puffs q4h as needed ALBUTEROL SULFATE [id number] Jayde Barnes LPN Start: 11-17-2016 End: 09-23-2017 Albuterol Sulfate 1 INHALER inhaler Discontinued 1 - 2 NMA INHALATION EVERY 4 HOURS NEEDED as needed for Shortness Of Breath November 17, 2016 12:00am September 23, 2017 3:40pm Start: 11-17-2016 End: 09-23-2017 take 1 puff(s) by inhalation every four hours as needed Albuterol Sulfate Discontinued 1 - 2 PUFF INHALATION EVERY 4 HOURS NEEDED November 16, 2016 11:00pm September 23, 2017 2:40pm Start: 06-23-2016 take 2 puff(s) by in halation every four hours as needed for wheezing albuterol HFA (VENTOLIN HFA) 90 mcg/actuation inhaler Inhale 2 Puffs as instructed every 4 hours as needed for Wheezing/Shortness of Breath. 1 Inhaler 5 06/23/2016 Active Comment on above: Inhale 2 Puffs as in structed every 4 hours as needed for Wheezing/Shortness of Breath. Use 2.5 mg via nebul izer every 4 hours as needed. amLODIPine 5 mg oral tablet (20 sources) Dihydropyridine Calcium Channel Júnior Start: 2020 End: 2023 take 1 tablet by mouth once daily Amlodipine 5 mg tablet Discontinued 5 mg PO DAILY January 10, 2021 12:00am July 01, 2024 1:47pm Comment on above: Take 1 tablet by mervin once daily. apixaban 5 mg oral tablet (20 sources) Factor Xa Inhibitor Start: 2016 End: 2016 take 2 tablets by mouth twice daily, then take 1 tablet by mouth twice daily Apixaban (Eliquis) 5 MG tablet Discontinued 10 mg PO TWICE A DAY 60 November 19, 2016 12:33pm May 27, 2017 4:01pm Starter pack; 10 mg p.o. twice daily for 5 more days till 11/24/16 and then 5 mg twice daily for rest of the life AZELASTINE HCL (4 sources) Histamine-1 Receptor Antagonist Start: 2016 take 1 spray(s) nasal route once daily AZELASTINE HCL 0.15 % SOLN 1 spray each nostril daily AZELASTINE HCL [id number] Irene Garcia MICROBIOLOGICAL LABORATORY TECHNICIAN azelastine hydrochloride 0.137 mg/actuat / fluticasone propionate 0.05 mg/actuat metered dose nasal spray (8 sources) Corticosteroid, Histamine-1 Receptor Antagonist Start: 2016 End: 2016 take 1 spray(s) nasal route twice daily DYMISTA 137-50 MCG/ACT SUSP 1 spray each nostril twice daily AZELASTINE-FLUTICA SONE [id number] Irene Garcia MICROBIOLOGICAL LABORATORY TECHNICIAN benoxinate hydrochloride 4 mg/ml / fluorescein sodium 2.5 mg/ml ophthalmic solution (1 source) Diagnostic Dye Start: 2021 End: 2021 fluorescein-benoxi amanda 0.25-0.4 % 1 Drop (FLURESS) bisacodyl 5 mg delayed release oral tablet (11 sources) Stimulant Laxative Start: 2020 End: 2022 take 1 tablet by mouth once as needed for constipation Bisacodyl (Dulcolax (Bisacodyl)) 5 mg tablet,delayed release (DR/EC) Discontinued 5 mg PO ONCE as needed for Constipation January 10, 2021 12:00am August 07, 2023 3:01pm cephalexin 250 mg oral capsule (16 sources) Cephalosporin Antibacterial Start: 2023 End: 2023 take 1 capsule by mouth once daily cephALEXin (KEFLEX) 250 mg capsule Take 250 mg by mouth once daily. 03/18/2024 05/27/2024 Discontinued (Course of therapy completed) Start: 11-10-2022 cephALEXin (KE FLEX) 250 mg capsule Start: 06-19-2022 End: 06-26-2022 take 1 capsule by mouth twice daily cephALEXin (KEFLEX) 500 mg capsule Indications: Dysuria Take 1 capsule by mouth twice daily for 7 days. 14 capsule 0 06/19/2022 06/26/2022 Active Start: 05-28-2022 End: 06-04-2022 take 1 capsule by mouth twice daily cephALEXin (KEFLEX) 500 mg capsule Take 1 capsule by mouth twice daily for 7 days. 14 capsule 0 05/28/2022 06/04/2022 Active Comment on above: Take 1 capsule by [facility] twice daily for 7 days. 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 OR CATTERY OPERATOR Start: 11-24-2016 take 1 capsule by [facility] every month VITAMIN D3 33515 UNIT CAPS 1 capsule PO monthly CHOLECALCIFEROL [id number] Jayde Jennifer Barnes [employer]ARDING [employer]ENNEL [employer] CATTERY OPERATOR D-Mannose powder (2 sources) Start: 08-19-2022 End: 02-11-2024 D-Mannose powder Discontinued NMA PO August 19, 2022 1:00am February 11, 2024 2:13pm doxycycline monohydrate 100 mg oral capsule (20 sources) Tetracycline -class Drug Start: 12-27-2020 End: 01-10-2021 take 1 capsule by mouth twice daily Doxycycline Monohydrate 100 mg capsule Discontinued 100 mg PO TWICE A DAY December 27, 2020 12:00am January 10, 2021 10:48am Start: 11-20-2020 End: 01-10-2021 take 1 tablet by mouth twice daily Doxycycline Hyclate 100 mg tablet Discontinued 100 mg PO TWICE A DAY November 20, 2020 12:00am January 10, 2021 10:48am Start: 04-07-2019 End: 07-06-2019 take 1 tablet by mouth twice daily Doxycycline Hyclate 100 mg tablet Discontinued 100 mg PO TWICE A DAY April 07, 2019 12:00am July 06, 2019 11:12am estradiol 0.1 mg/ml vaginal cream (11 sources) Estrogen Start: 11-17-2016 End: 11-19-2016 Estradiol (Estrace Vaginal Cream) 42.5 GM Cream.Appl Discontinued 1 NMA VAGINAL DAILY November 17, 2016 12:00am November 19, 2016 12:25pm Start: 11-17-2016 End: 11-19-2016 Estradiol (Estrace Vaginal C ream) 42.5 GM Cream.Appl Discontinued 1 DOSE VAGINAL DAILY November 16, 2016 11:00pm November 19, 2016 11:25am fluconazole 150 mg oral tablet (19 sources) Azole Antifungal Start: 05-20-2024 End: 07-06-2024 take 1 tablet by mouth once fluconazole (DIFLUCAN) 150 mg tablet Take 150 mg by mouth one time only. 05/20/2024 07/06/2024 Discontinued (Course of therapy completed) Start: 03-07-2024 End: 07-01-2024 take 1 tablet by mouth once daily Fluconazole 100 mg tablet Discontinued 100 mg PO daily March 07, 2024 12:00am July 01, 2024 1:24pm Start: 12-31-2020 End: 01-10-2021 take 1 tablet by mouth once daily Fluconazole 100 mg tablet Discontinued 100 mg PO daily December 31, 2020 12:00am January 10, 2021 10:48am 60 actuat fluticasone propionate 0.05 mg/actuat dry powder inhaler (20 sources) Corticosteroid Start: 04-02-2021 End: 02-19-2022 take 50 ug by inhalation once daily as needed for wheezing Fluticasone Propionate 50 mcg/actuation blister with device Discontinued 50 ug INHALATION DAILY as needed for Sob &/Or Wheezing 60 April 02, 2021 10:37am February 19, 2022 2:56pm Start: 04-15-2017 End: 07-24-2017 FLOVENT HFA 110 MCG/ACT AERO 2 puffs twice daily FLUTICASONE PROPIONATE HFA [id number] Jayde Barnes LPN Start: 04-15-2017 End: 07-24-2017 FLOVENT HFA 220 MCG/ACT AERO 2 puff twice daily FLUTICASONE PROPIONATE HFA [id number] Jaswant Miller DO Start: 11-27-2016 End: 03-05-2017 take 2 spray(s) nasal route once daily FLUTICASONE PROPIONATE 50 MCG/ACT SUSP 2 sprays each nostril daily FLUTICASONE PROPIONATE [id number] Jaswant Miller DO Start: 11-17-2016 End: 01-10-2021 take 50 ug by inhalation once daily as needed for wheezing Fluticasone Propionate 50 MCG blister with device Discontinued 50 ug IH DAILY as needed for Sob &/Or Wheezing November 17, 2016 12:00am January 10, 2021 10:48am GEMTESA 75 mg tablet (20 sources) Start: 08-01-2022 take 1 tablet by mouth once daily GEMTESA 75 mg tablet 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 0 08/01/2022 Active Start: 07-09-2021 End: 08-01-2022 GEMTESA 75 mg tablet 021 08/01/2022 Discontinued Start: 07-09-2021 End: 08-01-2022 GEMTESA 75 mg tablet Start: 07-09-2021 GEMTESA 75 mg tablet Comment on above: Take 1 tablet by mervin th once daily. 12 hr guaiFENesin 1200 mg extended release oral tablet (13 sources) Start: 11-20-2020 End: 01-10-2021 take 1 tablet by mouth every twelve hours Guaifenesin 1,200 mg tablet extended release 12hr Discontinued 1200 mg PO Q12H 60 November 20, 2020 12:00am January 10, 2021 10:48am Start: 07-27-2017 GUAIFENESIN 40 0 MG TABS 1 tab twice daily GUAIFENESIN [id number] Irene Garcia CNP levETIRAcetam 500 mg oral tablet (4 sources) Start: 10-05-2023 End: 10-29-2023 take 1 tablet by mouth twice daily levETIRAcetam (KEPPRA) 500 mg tablet Take 1 tablet by mouth two times a day for 5 days. 10 tablet 0 10/05/2023 10/29/2023 Discontinued Comment on above: Take 1 tablet by mervin two times a day for 5 days. LORazepam 2 mg oral tablet (20 sources) Benzodiazepine Start: 12-07-2023 End: 06-05-2025 take 1 tablet by mouth once daily at bedtime LORazepam (ATIVAN) 2 mg tab Indications: Anxiety Take 1 tablet by mouth daily at bedtime for 90 days. 30 tablet 2 12/07/2024 03/04/2025 Discontinued Start: 03-11-2023 End: 12-02-2023 take 1 tablet by mouth once daily at bedtime LORazepam (ATIVAN) 2 mg tab Indications: Anxiety Take 1 tablet by mouth daily at bedtime for 90 days. 30 tablet 2 09/03/2023 12/02/2023 Active Start: 09-12-2022 End: 03-08-2023 take 1 tablet by mouth once daily at bedtime LORazepam (ATIVAN) 2 mg tab Indications: Anxiety Take 1 tablet by mouth daily at bedtime for 90 days. 30 tablet 2 12/08/2022 03/08/2023 Active Start: 01-10-2022 End: 09-04-2022 take 1 tablet by mouth once daily at bedtime LORazepam (ATIVAN) 2 mg tab Indications: Anxiety Take 1 tablet by mouth daily at bedtime for 120 days. 30 tablet 3 01/10/2022 05/07/2022 Discontinued Start: 09-09-2021 End: 01-07-2022 take 1 tablet by mouth once daily at bedtime LORazepam (ATIVAN) 2 mg tab Indications: Anxiety Take 1 tablet by mouth daily at bedtime for 120 days. 30 tablet 3 09/09/2021 01/07/2022 Discontinued Start: 01-10-2021 take 2 tablets by mo uth at bedtime Lorazepam 1 mg tablet Active 2 mg PO AT BEDTIME January 10, 2021 10:47am Start: 01-10-2021 take 2 mg by mouth at bedtime Lorazepam Active 2 MG PO AT BEDTIME January 10, 2021 9:47am Start: 11-17-2016 End: 01-10-2021 take 1 tablet by mouth at bedtime Lorazepam 1 MG tablet Discontinued 1 mg PO AT BEDTIME November 17, 2016 12:00am January 10, 2021 10:49am Comment on above: Take 1 tablet by mervin th daily at bedtime for 120 days. Take 1 tablet by mervin th daily at bedtime for 90 days. 24 hr mirabegron 50 mg extended release oral tablet (10 sources) beta3-Adrenergic Agonist Start: 01-30-2023 End: 09-30-2023 take 1 tablet by mouth once daily mirabegron (MYRBETRIQ) 50 mg Tb24 Take 1 tablet by mouth once daily. 0 01/30/2023 09/30/2023 Discontinued (Discontinued by another Health Care Provider) Comment on above: Take 1 tablet by mervin th once daily. multivitamin (13 sources) Start: 11-24-2016 take 1 tablet by mouth once daily MULTI-VITAMIN TABS One tablet by mouth daily MULTIPLE VITAMIN [id number] Jayde Barnes LPN Start: 11-17-2016 take 1 tablet by mervin th once daily Multivitamin Active 1 TABLET PO DAILY November 17, 2016 1:53pm Start: 11-17-2016 take 1 tablet by mervin th once daily Multivitamin Active 1 TABLET PO DAILY November 17, 2016 12:00am Start: 11-17-2016 take 1 tablet by mervin th once daily Multivitamin Active 1 TABLET PO DAILY November 16, 2016 11:00pm nitrofurantoin, macrocrystals 25 mg / nitrofurantoin, monohydrate 75 mg oral capsule (7 sources) Nitrofuran Antibacterial Start: 01-03-2025 End: 01-11-2025 nitrofurantoin monohydrate and macrocrystal (MACROBID) 100 mg capsule 01/03/2025 01/11/2025 Discontinued (Course of therapy completed) Start: 10-03-2021 End: 01-23-2022 take 1 capsule by mouth twice daily nitrofurantoin monohydrate and macrocrystal (MACROBID) 100 mg capsule TAKE 1 CAPSULE BY MOUTH TWICE DAILY FOR 7 DAYS 0 10/03/2021 01/23/2022 Discontinued Comment on above: TAKE 1 CAPSULE BY [facility] TWICE DAILY FOR 7 DAYS nystatin [id number] unt/ml oral suspension (20 sources) Polyene Antifungal Start: 02-26-2024 End: 03-07-2024 Nystatin 100,000 unit/mL suspension Discontinued 5 mL MUCOUS MEM THREE TIMES A DAY February 26, 2024 12:00am March 07, 2024 11:53am swish and swallow 5 cc three times per day for 10 days Start: 11-20-2020 End: 12-31-2020 Nystatin 100,000 unit/mL nick pension Discontinued 5 mL MUCOUS MEM THREE TIMES A DAY 250 November 20, 2020 12:00am December 31, 2020 9:25am swish and swallow 5 cc three times per day for 10 days Start: 11-20-2020 End: 12-31-2020 Nystatin Discontinued 5 ML M UCOUS MEM THREE TIMES A DAY November 19, 2020 11:00pm December 31, 2020 8:25am swish and swallow 5 cc three times per day for 10 days Start: 04-15-2017 End: 07-24-2017 NYSTATIN [id number] UNIT/ML SUSP 5 cc swish and swallow three times a day NYSTATIN [id number] Jayde Barnes LPN oxyCODONE hydrochloride 5 mg oral tablet (3 sources) Opioid Agonist End: 10-22-2023 take 1 tablet by mouth every eight hours as needed oxyCODONE IR (ROXICODONE) 5 mg immediate release tablet Take 5 mg by mouth every 8 hours as needed for pain. 0 10/22/2023 Discontinued Comment on above: Take 5 mg by mouth e very 8 hours as needed for pain. phenylephrine hydrochloride 25 mg/ml ophthalmic solution (1 source) alpha-1 Adrenergic Agonist Start: 07-15-2022 End: 07-16-2022 PHENYLephrine 2.5 % 1 Drop (AK-DILATE, CASSIDY-SYNEPHRINE) predniSONE 10 mg oral tablet (20 sources) Corticosteroid Start: 11-20-2020 End: 01-10-2021 take 4 tablets by mouth once daily, then take 3 tablets by mouth once daily, then take 2 tablets by mouth once daily, then take 1 tablet by mouth once daily Prednisone 10 mg tablet Discontinued 10 mg PO DAILY December 27, 2020 12:00am January 10, 2021 10:48am 4 tablets daily for 3 days, then 3 tablets daily for 3 days, then 2 tablets daily for 3 days, then 1 tablet daily for 3 days Start: 04-07-2019 End: 07-06-2019 Prednisone 10 mg tablet Disc ontinued 10 mg PO daily April 07, 2019 12:00am July 06, 2019 11:12am take 4 tabs for three days, then 3 tabs for three days, then 2 tabs for three days, then 1 tab for 3 days Start: 07-27-2017 End: 08-08-2017 PREDNISONE 10 MG TABS Take 4 tabs by mouth for 3 days, then 3 tabs by mouth for 3 days, then 2 tabs by mourth for 3 days, then 1 tab by mouth for 3 days. PREDNISONE [id number] Irene Garcia CNP proparacaine hydrochloride 5 mg/ml ophthalmic solution (1 source) Local Anesthetic Start: 07-15-2022 End: 07-16-2022 proparacaine 0.5 % 1 Drop (ALCAINE) tropicamide 10 mg/ml ophthalmic solution (1 source) Anticholinergic Start: 07-15-2022 End: 07-16-2022 tropicamide 1 % 1 Drop (MYDRIACYL) vitamin b 12 1 mg oral capsule (20 sources) Vitamin B12 Start: 11-24-2016 take 1 tablet by mouth once daily B-12 1000 MCG CAPS One tablet by mouth daily CYANOCOBALAMIN [id number] Jayde Barnes LPN Start: 11-17-2016 take 1 tablet by mervin once daily Cyanocobalamin (Vitamin B-12) 1,000 MCG tablet Active 1000 ug PO DAILY November 17, 2016 12:00am Comment on above: Take 1,000 mcg by mo uth once daily. Problems Active Problems Problem Classification Problem Date Documented Da te Episodic/Chronic Administrative/social admission (2 sources) Other reduced mobility; Translations: [Other specified conditions influencing health status] 01-08-2024 Episodic Allergic reactions (2 sources) Allergy to penicillin; Translations: [Allergy status to penicillin] Onset: 01-05-2025 01-05-2025 Episodic Anxiety disorders (20 sources) Anxiety; Translations: [Anxiety disorder, unspecified] Onset: 01-08-2017 01-08-2017 Chronic Asthma (20 sources) Asthma; Translations: [Exacerbation of asthma] Onset: 01-29-2006 Resolved: 01-20-2010 11-27-2016 Chronic Cardiac dysrhythmias (20 sources) Sick sinus syndrome; Translations: [Sick sinus syndrome] Chronic Chronic kidney disease (20 sources) Chronic kidney disease stage 3; Translations: [Stage 3 chronic kidney disease, unspecified whether stage 3a or 3b CKD] Onset: 01-30-2023 01-30-2023 Chronic Chronic kidney disease (1 source) Chronic kidney disease; Translations: [Stage 3 chronic kidney disease, unspecified whether stage 3a or 3b CKD (HCC)] Onset: 01-30-2023 Chronic obstructive pulmonary disease and bronchiectasis (20 sources) Bronchiectasis; Translations: [Bronchiectasis, uncomplicated] Onset: 07-29-2006 Resolved: 11-27-2009 03-05-2017 Chronic Chronic obstructive pulmonary disease and bronchiectasis (1 source) Chronic obstructive pulmonary disease and bronchiectasis; Translations: [Asthmatic bronchitis , chronic (HCC)] Onset: 01-30-2023 Conduction disorders (20 sources) Cardiac pacemaker in situ; Translations: [Presence of cardiac pacemaker] Onset: 05-08-2021 07-25-2021 Chronic Coronary atherosclerosis and other heart disease (11 sources) History of non-ST segment elevation myocardial infarction; Translations: [Old myocardial infarction] 01-14-2018 Chronic Esophageal disorders (20 sources) Gastro-esophageal reflux disease with esophagitis; Translations: [Gastroesophageal reflux disease with esophagitis] Onset: 05-13-2013 06-24-2017 Chronic Essential hypertension (20 sources) Essential hypertension; Translations: [Essential (primary) hypertension] Onset: 05-25-2008 10-21-2015 Chronic Genitourinary symptoms and ill-defined conditions (20 sources) Mixed urinary incontinence; Translations: [Mixed incontinence] Onset: 04-23-2021 04-23-2021 Chronic Glaucoma (20 sources) Open-angle glaucoma; Translations: [Primary open-angle glaucoma, bilateral, mild stage] Onset: 05-01-2020 Resolved: 11-25-2024 12-11-2020 Chronic Heart valve disorders (5 sources) H/O: artificial heart valve; Translations: [Rheumatic tricuspid insufficiency] Onset: 11-27-2016 11-27-2016 Chronic Immunizations and screening for infectious disease (4 sources) Vaccination needed; Translations: [Encounter for immunization] Episodic Intracranial injury (7 sources) Traumatic brain injury; Translations: [Unspecified intracranial injury without loss of consciousness, subsequent encounter] Onset: 11-09-2023 11-09-2023 Episodic Mood disorders (20 sources) Depressive disorder; Translations: [Depressive disorder] Onset: 03-17-2005 Resolved: 04-24-2021 06-25-2017 Chronic Nutritional deficiencies (20 sources) Vitamin D deficiency; Translations: [Vitamin D deficiency, unspecified] Onset: 01-08-2017 01-08-2017 Chronic Nutritional deficiencies (2 sources) Iron deficiency; Translations: [Iron deficiency] Onset: 12-14-2024 12-14-2024 Episodic Open wounds of extremities (2 sources) Laceration without foreign body of left upper arm, initial encounter; Translations: [Skin tear of left upper extremity] 08-16-2024 Episodic Osteoarthritis (20 sources) Osteoarthritis; Translations: [Unspecified osteoarthritis, unspecified site] Onset: 12-18-2011 12-18-2011 Chronic Other aftercare (2 sources) Long-term current use of diuretic; Translations: [Encounter for therapeutic drug level monitoring] 11-10-2024 Episodic Other and ill-defined heart disease (1 source) Other ill-defined heart diseases; Translations: [Diastolic dysfunction] Onset: 01-25-2025 Chronic Other connective tissue disease (1 source) Trochanteric bursitis of left hip; Translations: [Trochanteric bursitis, left hip] 12-14-2024 Episodic Other connective tissue disease (1 source) Myalgia, other site; Translations: [Myalgia and myositis, unspecified] 12-16-2024 Episodic Other connective tissue disease (1 source) Trochanteric bursitis, left hip; Translations: [Trochanteric bursitis of left hip] Onset: 01-25-2025 Episodic Other diseases of veins and lymphatics (1 source) Peripheral venous insufficiency; Translations: [Venous insufficiency (chronic) (peripheral)] Episodic Other gastrointestinal disorders (20 sources) Irritable bowel syndrome; Translations: [Mixed irritable bowel syndrome] Onset: 09-23-2016 09-23-2016 Chronic Other gastrointestinal disorders (7 sources) Constipation; Translations: [Constipation, unspecified] 01-09-2023 Episodic Other gastrointestinal disorders (1 source) Acute constipation; Translations: [Constipation, unspecified] Episodic Other gastrointestinal disorders (1 source) Aphagia; Translations: [Aphagia] 01-08-2024 Episodic Other gastrointestinal disorders (1 source) Swallowing painful; Translations: [Dysphagia, unspecified] 05-13-2024 Episodic Other gastrointestinal disorders (1 source) History of clinical finding in subject; Translations: [Personal history of other diseases of the digestive system] 05-16-2024 Episodic Other injuries and conditions due to external causes (7 sources) Injury of head; Translations: [Unspecified injury of head, initial encounter] 05-18-2023 Episodic Other injuries and conditions due to external causes (1 source) Abrasion and/or friction burn of multiple sites; Translations: [Unspecified multiple injuries, initial encounter] 05-21-2023 Episodic Other injuries and conditions due to external causes (1 source) Injury of right knee; Translations: [Unspecified injury of right lower leg, subsequent encounter] 05-21-2023 Episodic Other injuries and conditions due to external causes (3 sources) Closed injury of head; Translations: [Unspecified injury of head, initial encounter] 08-16-2024 Episodic Other injuries and conditions due to external causes (1 source) Unspecified injury of head, initial encounter; Translations: [Unspecified injury of head, initial encounter] Onset: 2025 Episodic Other liver diseases (1 source) Alkaline phosphatase raised; Translations: [Abnormal levels of other serum enzymes] Episodic Other lower respiratory disease (11 sources) Cough; Translations: [Cough] 01-14-2018 Episodic Other lower respiratory disease (14 sources) Dyspnea; Translations: [Dyspnea, unspecified] 01-14-2018 Episodic Other lower respiratory disease (2 sources) Snoring; Translations: [Snoring] 04-18-2024 Episodic Other lower respiratory disease (5 sources) Dyspnea on exertion; Translations: [Other forms of dyspnea] 01-05-2025 Episodic Other lower respiratory disease (3 sources) Other forms of dyspnea; Translations: [MARTINES (dyspnea on exertion)] Onset: 01-05-2025 Episodic Other nervous system disorders (1 source) Sleep-wake schedule disorder, delayed phase type; Translations: [Circadian rhythm sleep disorder, delayed sleep phase type] 04-18-2024 Chronic Other nervous system disorders (1 source) Circadian rhythm sleep disorder, delayed sleep phase type; 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] Onset: 05-03-2024 Chronic Other nervous system disorders (2 sources) Impairment of balance; Translations: [Other abnormalities of gait and mobility] 11-09-2023 Episodic Other non-epithelial cancer of skin (1 source) History of squamous cell carcinoma of skin; Translations: [Personal history of other malignant neoplasm of skin] Episodic Other non-traumatic joint disorders (4 sources) Pain in right knee; Translations: [Mechanical pain of right knee] 05-27-2023 Episodic Other non-traumatic joint disorders (1 source) Pain in left hip; Translations: [Hip pain, left] Onset: 03-02-2025 Episodic Other nutritional; endocrine; and metabolic disorders (20 sources) Obese class I; Translations: [Obesity, unspecified] Onset: 07-07-2019 07-07-2019 Chronic Other nutritional; endocrine; and metabolic disorders (11 sources) Obesity; Translations: [Obesity, unspecified] 02-12-2022 Chronic Other nutritional; endocrine; and metabolic disorders (5 sources) Obesity, unspecified; Translations: [Obesity, unspecified] Onset: 04-18-2024 02-25-2023 Chronic Other nutritional; endocrine; and metabolic disorders (1 source) Body mass index (BMI) 31.0-31.9, adult; Translations: [Class 1 obesity with body mass index (BMI) of 31.0 to 31.9 in adult, unspecified obesity type, unspecified whether serious comorbidity present] Onset: 04-18-2024 Chronic Other screening for suspected conditions (not mental disorders or infectious disease) (5 sources) Patient encounter status; Translations: [Encounter for screening mammogram for malignant neoplasm of breast] 05-21-2023 Episodic Other upper respiratory infections (12 sources) Posterior rhinorrhea; Translations: [Postnasal drip] 01-14-2018 Episodic Otitis media and related conditions (1 source) Dysfunction of left eustachian tube; Translations: [Other specified disorders of Eustachian tube, left ear] Episodic Pleurisy; pneumothorax; pulmonary collapse (2 sources) Pleurisy; Translations: [Pleurisy] Episodic Residual codes; unclassified (2 sources) Sleep apnea; Translations: [Sleep apnea, unspecified] 01-06-2024 Chronic Residual codes; unclassified (2 sources) Hypersomnia; Translations: [Hypersomnia, unspecified] 04-18-2024 Chronic Residual codes; unclassified (5 sources) Hypoxia; Translations: [Idiopathic sleep related nonobstructive alveolar hypoventilation] 05-13-2024 Chronic Residual codes; unclassified (1 source) Behavior finding; Translations: [Other sleep apnea] 05-16-2024 Chronic Residual codes; unclassified (1 source) Daytime somnolence; Translations: [Other hypersomnia] 07-08-2024 Chronic Residual codes; unclassified (1 source) Other hypersomnia; Translations: [Excessive daytime sleepiness] Onset: 07-08-2024 Chronic Residual codes; unclassified (2 sources) Idiopathic sleep related nonobstructive alveolar hypoventilation; Translations: [Nocturnal hypoxemia] Onset: 05-26-2024 Chronic Residual codes; unclassified (1 source) Hypersomnia, unspecified; Translations: [Hypersomnia] Onset: 05-03-2024 Chronic Residual codes; unclassified (4 sources) Edema of right lower limb; Translations: [Localized edema] 05-27-2023 Episodic Residual codes; unclassified (1 source) Forgetful; Translations: [Other general symptoms and signs] 11-09-2023 Episodic Residual codes; unclassified (2 sources) Insomnia; Translations: [Insomnia, unspecified] 04-18-2024 Episodic Respiratory failure; insufficiency; arrest (15 sources) Acute respiratory failure; Translations: [Acute respiratory failure with hypoxia] Onset: 11-27-2016 11-27-2016 Episodic Retinal detachments; defects; vascular occlusion; and retinopathy (20 sources) Nonexudative age-related macular degeneration; Translations: [Nonexudative age-related macular degeneration, bilateral, intermediate dry stage] Onset: 05-01-2020 05-01-2020 Chronic Spondylosis; intervertebral disc disorders; other back problems (20 sources) Degeneration of lumbar intervertebral disc; Translations: [Other intervertebral disc degeneration, lumbar region] Onset: 12-19-2005 Resolved: 06-24-2017 02-16-2012 Chronic Superficial injury; contusion (20 sources) Contusion of knee; Translations: [Contusion of unspecified knee, initial encounter] Onset: 03-02-2025 05-18-2023 Episodic Thyroid disorders (20 sources) Hypothyroidism; Translations: [Hypothyroidism, unspecified] Onset: 03-17-2005 10-21-2015 Chronic Unclassified (1 source) Pain of erector spinae muscle 12-16-2024 Unclassified (1 source) 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 lower extremity pain; Translations: [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 lower extremity pain] Onset: 02-16-2012 Past or Other Problems Problem Classification Problem Date Documented Da te Episodic/Chronic Abdominal pain (20 sources) Left lower quadrant pain; Translations: [Left lower quadrant pain] Resolved: 11-11-2012 11-11-2012 Episodic Acute cerebrovascular disease (20 sources) Hemorrhage into subarachnoid space of neuraxis; Translations: [Nontraumatic subarachnoid hemorrhage, unspecified] Onset: 10-02-2023 Resolved: 11-25-2024 10-02-2023 Chronic Cardiac dysrhythmias (20 sources) Bradycardia; Translations: [Bradycardia, unspecified] Onset: 01-18-2021 Resolved: 08-01-2022 01-18-2021 Episodic Cataract (20 sources) Bilateral pseudophakia; Translations: [Presence of intraocular lens] Onset: 07-23-2020 Resolved: 04-24-2021 04-24-2021 Chronic Conditions associated with dizziness or vertigo (20 sources) Dizziness; Translations: [Dizziness and giddiness] Onset: 08-27-2009 Resolved: 11-11-2012 03-05-2017 Episodic Disorders of lipid metabolism (20 sources) Hyperlipidemia; Translations: [Hyperlipidemia, unspecified] Onset: 06-18-2010 Resolved: 01-08-2017 01-08-2017 Chronic E Codes: Fall (20 sources) Fall; Translations: [Unspecified fall, initial encounter] Onset: 10-03-2023 Resolved: 10-29-2023 05-18-2023 Episodic Genitourinary symptoms and ill-defined conditions (3 sources) Dysuria; Translations: [Dysuria] Onset: 04-18-2024 Episodic Headache; including migraine (3 sources) Posttraumatic headache; Translations: [Post-traumatic headache, unspecified, not intractable] Onset: 10-27-2024 11-09-2023 Episodic Inflammation; infection of eye (except that caused by tuberculosis or sexually transmitteddisease) (20 sources) Bilateral punctate keratitis of eyes; Translations: [Punctate keratitis, bilateral] Onset: 10-08-2021 Resolved: 11-25-2024 10-08-2021 Chronic Inflammation; infection of eye (except that caused by tuberculosis or sexually transmitteddisease) (20 sources) Allergic conjunctivitis of bilateral eyes; Translations: [Acute atopic conjunctivitis, bilateral] Onset: 11-06-2020 Resolved: 11-25-2024 10-08-2021 Episodic Malaise and fatigue (20 sources) Fatigue; Translations: [Other fatigue] Onset: 10-14-2023 01-10-2021 Episodic Mood disorders (2 sources) Mood disorder; 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, unspecified] Onset: 11-09-2023 11-09-2023 Episodic Mycoses (17 sources) Candidiasis of mouth; Translations: [Candidal stomatitis] Onset: 04-15-2017 04-15-2017 Episodic Nonspecific chest pain (17 sources) Chest pain; Translations: [Chest pain, unspecified] Onset: 05-05-2017 05-05-2017 Episodic Other aftercare (20 sources) Drug therapy finding; Translations: [information systems planner (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) use of anticoagulants] Onset: 11-25-2016 Resolved: 09-30-2017 09-30-2017 Episodic Other aftercare (1 source) Encounter for therapeutic drug level monitoring; Translations: [Encounter for therapeutic drug level monitoring] Onset: 11-22-2024 Episodic Other aftercare (1 source) Encounter for other specified aftercare; Translations: [Encounter for other specified aftercare] Onset: 08-26-2024 Episodic Other and unspecified benign neoplasm (20 sources) Tubular adenoma of colon; Translations: [Benign neoplasm of colon, unspecified] Onset: 12-29-2017 12-29-2017 Episodic Other connective tissue disease (20 sources) Enthesopathy of hip region; Translations: [Other specified enthesopathies of right lower limb, excluding foot] Onset: 07-08-2011 Resolved: 04-24-2021 Episodic Other connective tissue disease (20 sources) Disorder of rotator cuff; Translations: [Other specified disorders of rotator cuff syndrome of shoulder and allied disorders] Onset: 04-09-2007 Resolved: 09-23-2016 09-23-2016 Episodic Other connective tissue disease (20 sources) Muscle, ligament and fascia disorders; Translations: [Disorder of muscle, unspecified] Onset: 07-10-2011 Resolved: 12-24-2015 12-24-2015 Episodic Other connective tissue disease (20 sources) Myofascial pain; Translations: [Myalgia, other site] Onset: 01-30-2012 Resolved: 05-20-2016 05-20-2016 Episodic Other eye disorders (20 sources) Optic cupping; Translations: [Glaucomatous optic atrophy, bilateral] Onset: 05-01-2020 Resolved: 11-25-2024 10-23-2021 Chronic Other gastrointestinal disorders (20 sources) Constipation alternates with diarrhea; Translations: [Other specified symptoms and signs involving the digestive system and abdomen] Resolved: 07-04-2020 07-04-2020 Episodic Other gastrointestinal disorders (1 source) Dysphagia, unspecified; Translations: [Odynophagia] Onset: 05-16-2024 Episodic Other injuries and conditions due to external causes (20 sources) Traumatic injury; Translations: [Injury, unspecified, initial encounter] Onset: 10-03-2023 Resolved: 10-29-2023 10-05-2023 Episodic Other injuries and conditions due to external causes (1 source) Encounter for examination and observation following other accident; Translations: [Encounter for examination and observation following other accident] Onset: 09-05-2024 Episodic Other lower respiratory disease (16 sources) Solitary nodule of lung; Translations: [Paroxysmal nocturnal dyspnea] Onset: 11-27-2016 01-08-2017 Episodic Other lower respiratory disease (20 sources) Nodule of lung; Translations: [Solitary pulmonary nodule] Onset: 01-08-2017 Resolved: 09-30-2017 01-14-2018 Episodic Other lower respiratory disease (20 sources) Desaturation of blood; Translations: [Hypoxemia] Onset: 05-27-2024 05-27-2024 Episodic Other lower respiratory disease (1 source) Hypoxemia; Translations: [Oxygen desaturation] Onset: 05-27-2024 Episodic Other lower respiratory disease (2 sources) Dyspnea, unspecified; Translations: [Dyspnea, unspecified type] Onset: 05-27-2024 Episodic Other lower respiratory disease (1 source) Snoring; Translations: [Snoring] Onset: 05-03-2024 Episodic Other lower respiratory disease (1 source) Shortness of breath; Translations: [Shortness of breath] Onset: 09-30-2024 Episodic Other nervous system disorders (20 sources) Abnormal gait; Translations: [Unspecified abnormalities of gait and mobility] Onset: 01-29-2017 Resolved: 06-24-2017 06-24-2017 Episodic Other nervous system disorders (1 source) Other abnormalities of gait and mobility; Translations: [Balance problem] Onset: 03-30-2024 Episodic Other non-traumatic joint disorders (20 sources) Arthropathy; Translations: [Arthropathy, unspecified] Onset: 10-07-2005 Resolved: 12-24-2015 12-24-2015 Chronic Other non-traumatic joint disorders (20 sources) Arthralgia of the pelvic region and thigh; Translations: [Pain in unspecified hip] Onset: 12-13-2007 Resolved: 05-20-2016 05-20-2016 Episodic Other non-traumatic joint disorders (20 sources) Pain in right hip joint; Translations: [Pain in right hip] Onset: 08-05-2017 Resolved: 09-30-2017 09-30-2017 Episodic Other non-traumatic joint disorders (20 sources) Hip pain; Translations: [Pain in right hip] Onset: 08-05-2017 Resolved: 09-30-2017 09-30-2017 Episodic Pulmonary heart disease (20 sources) Pulmonary embolism; Translations: [Other pulmonary embolism with acute cor pulmonale] Onset: 11-24-2016 Resolved: 12-29-2017 12-29-2017 Chronic Pulmonary heart disease (4 sources) Pulmonary embolism; Translations: [Other pulmonary embolism without acute cor pulmonale] Onset: 11-27-2016 11-27-2016 Episodic Residual codes; unclassified (20 sources) History of surgical procedure on eye proper using laser; Translations: [Other specified postprocedural states] Onset: 05-01-2020 05-01-2020 Episodic Residual codes; unclassified (20 sources) Other specified postprocedural states; Translations: [Other states following surgery of eye and adnexa] Onset: 05-01-2020 05-01-2020 Episodic Residual codes; unclassified (1 source) Insomnia, unspecified; Translations: [Insomnia, unspecified type] Onset: 05-03-2024 Episodic Respiratory failure; insufficiency; arrest (adult) (20 sources) Dependence on supplemental oxygen; Translations: [Dependence on supplemental oxygen] Onset: 11-24-2016 Resolved: 06-24-2017 06-24-2017 Chronic Screening and history of mental health and substance abuse codes (4 sources) H/O: depression; Translations: [Personal history of other mental and behavioral disorders] Onset: 04-18-2024 04-18-2024 Episodic Spondylosis; intervertebral disc disorders; other back problems (20 sources) Backache; Translations: [Dorsalgia, unspecified] Onset: 12-13-2007 Resolved: 11-25-2024 01-10-2020 Episodic Sprains and strains (20 sources) Low back strain; Translations: [Strain of muscle, fascia and tendon of lower back, initial encounter] Onset: 01-30-2012 Resolved: 09-23-2016 09-23-2016 Episodic Unclassified (11 sources) Bilateral SubmassivePE 04-02-2022 Unclassified (20 sources) ASA CLASS II Onset: 03-17-2005 Resolved: 09-23-2016 09-23-2016 Urinary tract infections (20 sources) Urinary tract infectious disease; Translations: [Urinary tract infection, site not specified] Onset: 06-19-2022 Episodic Results Test Name Value Interpretation Reference Range Facility CNOVon 03-02-2025 CNOV Normal [facility] Brain/Head without Contrasto n 02-15-2025 Brain/Head without Contrast [facility] Imaging Services [address], [place] [id number] Brain/Head without Contrast MR#: [id number] Acct: [id number] Name: GEOFFREY NASSAR Rep #: [id number] : [id number] F [id number] From: Radames De Leon MD PCP: Dr. Ken Contreras MD Status: REG ER Study: Brain/Head without Contrast Date of Exam: 02/05 10/01 Exam# [id number] Ordering Dr: Av Valencia MD PROCEDURE: BRAIN/HEAD WITHOUT CONTRAST 02/15/2025 REASON FOR EXAM: INJURY/PAIN TECHNIQUE: Head CT without intravenous contrast. Coronal and Sagittal reconstruction series were provided. One or more dose reduction techniques were used (e.g., Automated exposure control, adjustment of the mA and/or kV according to patient size, use of iterative reconstruction technique. RADIATION DOSE SUMMARY: CTDlvol: 44.99+ 14.63 mGy DLP: 1096.20 mGycm COMPARISON: 10/12/2024. FINDINGS: Mild to moderate global parenchymal atrophy. Periventricular white matter hypodensity likely representing chronic microvascular ischemia. No evidence of acute hemorrhage or infarction. No extra-axial blood or fluid collections. The paranasal sinuses and mastoid air cells are well aerated. The calvarial vault and skull base are intact. CT/Brain/Head without Contrast IMPRESSION: NO ACUTE FINDINGS Reading Location: [place] [address] CC: Dr. Av Valencia MD; Dr. Ken Contreras MD Leak Patcher: Signed Normal [facility] Emergency Department Summary on 02-15-2025 Emergency Department Summary [facility] Medical Records Department [address] [place] [address] Emergency Department Summary 02/15/25 MR#: [id number] Acct: [id number] Name: GEOFFREY NASSAR Rep #: [id number] : 1935 89 From: Av Valencia MD PCP: Dr. Ken Contreras MD Status:REG ER Location: ED HPI History of Present Illness Chief Complaint: Fall Detail of Chief Complaint: Headache, neck pain and low back pain status post fall Informant: patient Onset/Context/Timing Onset: Days (Yesterday) Mechanism/Context: Blunt Injury and Fall (States she tripped over her feet. She fell into the refrigerator.) Location of pain/injuries: - (Left parietal area, neck and low back. Patient unaware she had ecchymosis dorsal ulnar side of her left hand) Quality of Pain: Dull and Aching Current Severity: Mild Maximum Severity: Moderate Worsened by: Neck pain worse with palpation and low back pain worse with movement Relieved by: Nothing Associated Symptoms Associated Symptoms: Negative for Parasthesias, Weakness, Loss of function, Inability to ambulate, Loss of consciousness or Amnesia Narrative Narrative: Patient 89-year-old woman. Is on aspirin. Has history of asthma, hypothyroidism, non-ST elevation IA, GERD, and essential hypertension. She also has history of pacemaker placement 2020. Patient states she tripped over her feet. She fell into the refrigerator. She hit the left side of her head. She presents today because of persistent headache since injury. Neck pain and low back pain. She has not taken anything for it. She was asked if she would like anything for her pain and she declined. Patient denies double vision blurred vision loss of vision. Denies weight or ears or decreased hearing. She denies paresthesia, anesthesia or motor weakness. She denies cardiac respiratory symptoms. Denies black or maroon-colored stool. She has no urologic symptoms. Patient does have history of osteoporosis. Prior similar symptoms: No Recent Illness/Hospitalizati on: No PFSH [facility] Medical History Presence of cardiac pacemaker ( 05/29/21) Chronotropic incompetence with sinus node dysfunction Sick sinus syndrome Sinus bradycardia Retinal detachment Essential hypertension GERD (gastroesophageal reflux disease) Acute respiratory failure with hypoxia PND (post-nasal drip) History of non-ST elevation myocardial infarction (NSTEMI) Pulmonary nodule Cough Dizziness Bronchiectasis Thrush, oral Dyspnea Chest pain Asthma exacerbation Bilateral SubmassivePE Hypothyroidism Asthmatic bronchitis , chronic Home Medications ???Medication ???Instructions ???Recorded ???Last Taken ???Type acetaminophen 325 mg tablet 650 mg PO QHS pain 11/17/16 History baclofen 10 mg tablet 5 mg PO BID muscle relaxer 7 11/16/16 History cyanocobalamin (vitamin B-12) 1,000 mcg PO DAILY vitamin 7 11/16/16 History 1,000 mcg tablet multivitamin 1 tab PO DAILY vitamin 11/17/16 History paroxetine HCl 10 mg tablet 40 mg PO DAILY mental health 11/1705/29/21 History polyethylene glycol 3350 17 gram 17 gm PO DAILY constipation Unknown History oral powder packet aspirin 81 mg tablet,delayed 81 mg PO DAILY@0800 heart health 0 11/27/17 Unknown History release lamotrigine 25 mg tablet,extended 25 mg PO DAILY 11/27/17 Unknown H istory release 24 hr loratadine 10 mg tablet (Claritin) 10 mg PO DAILY allergies 1 Unknown History albuterol sulfate 2.5 mg/3 mL 2.5 mg inhalation Q4H PRN Sob /Or 01/10/21 05/29/21 History (0.083 %) solution for nebulization Wheezing brimonidine 0.2 %-timolol 0.5 % 1 drp ophthalmic (eye) BID eye 02/25 Unknown History eye drops (Combigan) health ketotifen fumarate 0.025 % (0.035 1 drp ophthalmic (eye) BID eye Unknown History %) eye drops health latanoprost 0.005 % eye drops, 1 drp ophthalmic (eye) QPM eye 02/25 Unknown History emulsion health lisinopril 40 mg tablet 40 mg PO DAILY blood pressure 0502/25 Unknown History lorazepam 1 mg tablet 2 mg PO QHS anxiety 01/10/21 Unkno wn History pantoprazole 20 mg tablet,delayed 40 mg PO DAILY reflux 01/10/21 History release vibegron 75 mg tablet (Gemtesa) 75 mg PO DAILY 08/07/21 Unknown Hi story albuterol sulfate 90 mcg/actuation 1 - 2 puff inhalation Q4H PRN SC N 02/11/22 Unknown Rx aerosol inhaler Shortness Of Breath #18 grams ascorbic acid (vitamin C) 250 mg 250 mg PO BID 08/19/22 Unknown His tory tablet lactobacillus combination no.9 4 4,000 mmu cells PO DAILY 08/19/22 Unknown History billion cell capsule (Adult 50 Plus Probiotic) ergocalciferol (vitamin D2) 1,250 50,000 unit PO QMONTH vitamin 12/28 Unknown History mcg (50,000 uni (more content not included)... Normal [facility] Lumbar Spine 2 or 3 Viewson 02-15-2025 Lumbar Spine 2 or 3 Views [facility] Imaging Services [address] [place], [place] [id number] Lumbar Spine 2 or 3 Views MR#: [id number] Acct: [id number] Name: GEOFFREY NASSAR Rep #: [id number] : 1935 F 89 From: Radames De Leon MD PCP: Dr. Ken Contreras MD Status: REG ER Study: Lumbar Spine 2 or 3 Views Date of Exam: Exam# [id number] Ordering Dr: Av Valencia MD PROCEDURE: LUMBAR SPINE 2 OR 3 VIEWS 02/15/2025 REASON FOR EXAM: INJURY/PAIN TECHNIQUE: 3 view(s) of the lumbar spine COMPARISON: None. FINDINGS: No evidence of acute fracture or dislocation. Moderate discogenic degenerative changes of the visualized spine. Moderate lumbar facet arthropathy. Grade 1 anterolisthesis of L5 on S1. Levoscoliosis. Cholecystectomy clips. RAD/Lumbar Spine 2 or 3 Views IMPRESSION: No acute osseous abnormality. Spondylosis. Spondylolisthesis. Scoliosis. Reading Location: [place] [address] CC: Dr. Av Valencia MD; Dr. Ken Contreras MD Leak Patcher: Signed Normal [facility] Spine Cervical without Contr ason 02-15-2025 Spine Cervical without Contras [facility] Imaging Services [address] [place], [place] [address] Spine Cervical without Contras MR#: [id number] Acct: [id number] Name: GEOFFREY NASSAR RA Rep #: [id number] : 1935 F 89 From: Radames De Leon MD PCP: Dr. Ken Contreras MD Status: REG ER Study: Spine Cervical without Contras Date of Exam: 0 02/15/25 Exam# [id number] Ordering Dr: Av Valencia MD PROCEDURE: SPINE CERVICAL WITHOUT CONTRAS 02/15/2025 REASON FOR EXAM: INJURY/PAIN TECHNIQUE: Cervical spine CT without contrast. Coronal and Sagittal reconstruction series were provided. One or more dose reduction techniques were used (e.g., Automated exposure control, adjustment of the mA and/or kV according to patient size, use of iterative reconstruction technique RADIATION DOSE SUMMARY: DLP: 849.55 mGycm COMPARISON: 10/02/2023. FINDINGS: No evidence of acute fracture or dislocation. Vertebral body heights are maintained. Osseous demineralization. Grade 1 anterolisthesis of C4 on C5. Discogenic degenerative changes most pronounced at C5-6. No acute soft tissue abnormalities. CT/Spine Cervical without Contras IMPRESSION: No acute cervical spine fracture. Spondylosis. Spondylolisthesis. Reading Location: [place] [address] CC: Dr. Av Valencia MD; Dr. Ken Contreras MD Leak Patcher: Signed Normal [facility] CNPNon 02-06-2025 CNPN Normal [facility] CNPNon 02-03-2025 CNPN Normal [facility] LUNG VOLUMESon 02-03-2025 LUNG VOLUMES Normal [facility] SPIROMETRY - BASELINE AND PO ST DILATORon 02-03-2025 SPIROMETRY - BASELINE AND POST DILATOR Normal [facility] CNOVon 02-02-2025 CNOV Normal [facility] 25(OH)D3 SerPl-mCncon 2024 25-hydroxyvitamin D3 [Mass/Vol] 50.5 ng/mL Normal 31.0-80.0 [facility] Comment on above: Order Comment: Speci men Type: BLOOD SPECIMENOrdering Facility: [facility] Address: [address] [place] [address] Result Comment: Clas sification of 25 [place] Vitamin D status:Deficiency/Insufficiency: < or = 30 ng/ml.Sufficiency/Optimal Levels: 31-80 ng/mLToxicity: > 100 ng/mL.Test performed by chemiluminescent immunoassay. Performed By: #### 1 989-3 ####[facility] LABCLIA [id number] [place] [address] [place] Basic metabolic 2000 panelon 01-26-2025 Anion gap [Moles/Vol] 12 mmol/L Normal 8-15 [facility] Comment on above: Order Comment: Speci men Type: BLOOD SPECIMENOrdering Facility: [facility] Address: [address] [place] [address] Performed By: #### 2 4321-2 ####[facility] MILLTOWNCLIA [id number] [place] [address] [place] Calcium [Mass/Vol] 10.0 mg/dL Normal 8.5-10.2 [facility] Comment on above: Order Comment: Speci men Type: BLOOD SPECIMENOrdering Facility: [facility] Address: [address] [place] [address] Performed By: #### 2 4321-2 ####[facility] MILLWNCLIA [id number] [place] [address] [place] Chloride [Moles/Vol] 104 mmol/L Normal 98-107 [facility] Comment on above: Order Comment: Speci men Type: BLOOD SPECIMENOrdering Facility: [facility] Address: [address] [place] [address] Performed By: #### 2 4321-2 ####[facility] EASTLIA [id number] [place] [address] [place] CO2 [Moles/Vol] 23 mmol/L Normal 22-30 [facility] Comment on above: Order Comment: Speci men Type: BLOOD SPECIMENOrdering Facility: [facility] Address: [address] [place] [address] Performed By: #### 2 4321-2 ####[facility] EASTLIA [id number] [place] [address] [place] Creatinine [Mass/Vol] 1.44 mg/dL High 0.58-0.96 [facility] Comment on above: Order Comment: Speci men Type: BLOOD SPECIMENOrdering Facility: [facility] Address: [address] [place] [address] Performed By: #### 2 4321-2 ####[facility] [id number] [place] [address] [place] Creatinine and Glomerular filtration rate.predicted panel (S/P/Bld) 35 mL/min/1.73m??? Low >=60 [facility] Comment on above: Order Comment: Jacob chavez Type: BLOOD SPECIMENOrdering Facility: [facility] Address: [address] [place] [address] Result Comment: Deidra mated Glomerular Filtration Rate (eGFR) is calculated using the 2020 CKD-EPI creatinine equation. This equation utilizes serum creatinine, sex, and age as parameters. The creatinine assay has traceable calibration to isotope dilution-mass spectrometry. Refer to KDIGO guidelines for clinical interpretation. In patients with unstable renal function, e.g. those with acute kidney injury, the eGFR may not accurately reflect actual GFR. Performed By: #### 2 4321-2 ####[facility] [id number] [place] [address] [place] Glucose [Mass/Vol] 100 mg/dL High 74-99 [facility] Comment on above: Order Comment: Jacob chavez Type: BLOOD SPECIMENOrdering Facility: [facility] Address: [address] [place] [address] Result Comment: The [place] Diabetes Association (ADA) provides guidance for cutoff values for fasting glucose and random glucose. The ADA defines fasting as no caloric intake for at least 8 hours. Fasting plasma glucose results between 100 to 125 mg/dL indicate increased risk for diabetes (prediabetes).Fasting plasma glucose results greater than or equal to 126 mg/dL meet the criteria for diagnosis of diabetes. In the absence of unequivocal hyperglycemia, results should be confirmed by repeat testing. In a patient with classic symptoms of hyperglycemia or hyperglycemic crisis, random plasma glucose results greater than or equal to 200 mg/dL meet the criteria for diagnosis of diabetes.Reference: Standards of Medical Care in Diabetes 2016, [place] Diabetes Association. Diabetes Care. 2016.39(Suppl 1). Performed By: #### 2 4321-2 ####[facility] [id number] [place] [address] [place] Potassium [Moles/Vol] 4.2 mmol/L Normal 3.7-5.1 [facility] Comment on above: Order Comment: Jacob chavez Type: BLOOD SPECIMENOrdering Facility: [facility] Address: [address] [place] [address] Performed By: #### 2 4321-2 ####[facility]ITAL[facility] [id number] [place] [address] [place] Sodium [Moles/Vol] 139 mmol/L Normal 136-144 [facility] Comment on above: Order Comment: Speci men Type: BLOOD SPECIMENOrdering Facility: [facility] Address: [address] [place] [address] Performed By: #### 2 4321-2 ####[facility] [id number] [place] [address] [place] Urea nitrogen [Mass/Vol] 45 mg/dL High 7-21 [facility] Comment on above: Order Comment: Speci men Type: BLOOD SPECIMENOrdering Facility: [facility] Address: [address] [place] [address] Performed By: #### 2 4321-2 ####[facility]ITAL[facility]CLIA [id number] [place] [address] [place] NT-proBNP SerPl-mCncon 01-26 Natriuretic peptide.B prohormone N-Terminal [Mass/Vol] 323 pg/mL Normal <450 [facility] Comment on above: Order Comment: Speci men Type: BLOOD SPECIMENOrdering Facility: [facility] Address: [address] [place] [address] Performed By: #### 3 3762-6, 3016-3 ####[facility] LABCLIA [id number] [place] [address] [place] TSH SerPl-aCncon 01-26-2025 TSH Qn 0.294 m[IU]/L Normal 0.270-4.200 [facility] Comment on above: Order Comment: Speci men Type: BLOOD SPECIMENOrdering Facility: [facility] Address: [address] [place] [address] Performed By: #### 3 3762-6, 3016-3 ####[facility] LABIA [id number] [place] [address] [place] CNOVon 01-25-2025 CNOV Normal [facility] XR CHEST 2V FRONTAL/LATon XR CHEST 2V FRONTAL/LAT Normal [facility] CNOVon 01-11-2025 CNOV Normal [facility] CNPTOUTREACHon 01-06-2025 CNPTOUTREACH Normal [facility] CNOVon 01-05-2025 CNOV Normal [facility] CNPTOUTREACHon 12-22-2024 CNPTOUTREACH Normal [facility] CNPNon 12-19-2024 CNPN Normal [facility] CNOVon 12-16-2024 CNOV Normal [facility] 25(OH)D3 SerPl-mCncon 2024 25-hydroxyvitamin D3 [Mass/Vol] 75.9 ng/mL Normal 31.0-80.0 [facility] Comment on above: Order Comment: Speci men Type: BLOOD SPECIMENOrdering Facility: [facility] Address: [address] [place] [address] Result Comment: Clas sification of 25 [place] Vitamin D status:Deficiency/Insufficiency: < or = 30 ng/ml.Sufficiency/Optimal Levels: 31-80 ng/mLToxicity: > 100 ng/mL.Test performed by chemiluminescent immunoassay. Performed By: #### 1 989-3 ####[facility] LABIA [id number] [place] [address] [place] CNOVon 12-14-2024 CNOV Normal [facility] Ferritin SerPl-mCncon 2024 Ferritin [Mass/Vol] 147.0 ng/mL Normal 14.7-205.1 [facility] Comment on above: Order Comment: Speci men Type: BLOOD SPECIMENOrdering Facility: [facility] Address: [address] [place] [address] Performed By: #### 2 276-4, 83876-0 ####[facility] LABCLIA [id number] [place] [id number] [place] Iron and Iron binding capaci ty panelon 12-14-2024 Iron [Mass/Vol] 74 ug/dL Normal 41-186 [facility] Comment on above: Order Comment: Speci men Type: BLOOD SPECIMENOrdering Facility: [facility] Address: [address] [place] [address] Performed By: #### 2 276-4, 96118-4 ####[facility] LABIA [id number] [address] [place] Iron binding capacity [Mass/Vol] 305 ug/dL Normal 232-386 [facility] Comment on above: Order Comment: Speci men Type: BLOOD SPECIMENOrdering Facility: [facility] Address: [address] [place] [address] Performed By: #### 2 276-4, 62984-6 ####[facility] LABIA [id number] [place] [id number] [place] Iron/TIBC [Molar ratio] 24.3 % Normal 15.0-57.0 [facility] Comment on above: Order Comment: Speci men Type: BLOOD SPECIMENOrdering Facility: [facility] Address: [address] [place] [address] Performed By: #### 2 276-4, 72115-7 ####[facility] LABIA [id number] [place] [id number] [place] CNPNon 12-13-2024 CNPN Normal [facility] CNPTOUTREACHon 12-07-2024 CNPTOUTREACH Normal [facility] CNPNon 12-01-2024 CNPN Normal [facility] CNPNon 11-29-2024 CNPN Normal [facility] CNOVon 11-24-2024 CNOV Normal [facility] XR HIP 3V PELV+ AP/LAT LTon 11-24-2024 XR HIP 3V PELV+ AP/LAT LT Normal [facility] CNPTOUTREACHon 11-23-2024 CNPTOUTREACH Normal [facility] Anion gap in Serum or Plasma Ordered By: Latonya Vargas on 11-11-2024 Anion gap [Moles/Vol] 10 mmol/L - [facility] BUN/creatinine ratioOrdered By: Latonya Vargas on 11-11-2024 Urea nitrogen/Creatinine [Mass ratio] 27.3 mg/mg High 10- [facility] Basic Metabolic Profile (BMP )on 11-11-2024 BUN/CRE 27.3 RATIO High 06-26 [facility] Comment on above: Order Comment: Pt [facility] thumb region to see if she needs KCL with Lasix Performed By: #### L 500.2500 ####[facility] [address] [place], [address] Calcium [Mass/Vol] 9.5 mg/dL Normal 7.6-11.0 [facility] Comment on above: Order Comment: Pt [facility] thumb region to see if she needs KCL with Lasix Performed By: #### L 500.2500 ####[facility] [address] [place], [address] Chloride [Moles/Vol] 101 mmol/L Normal 98-108 [facility] Comment on above: Order Comment: Pt [facility] thumb region to see if she needs KCL with Lasix Performed By: #### L 500.2500 ####[facility] [address] [place], [address] CO2 [Moles/Vol] 25.8 mmol/L Normal 21.0-32.0 [facility] Comment on above: Order Comment: Pt [facility] thumb region to see if she needs KCL with Lasix Performed By: #### L 500.2500 ####[facility] [address] [place], [address] Creatinine [Mass/Vol] 1.42 mg/dL High 0.70-1.20 [facility] Comment on above: Order Comment: Pt de nts to see if she needs KCL with Lasix Performed By: #### L 500.2500 ####[facility] [address] [place], [address] GAP 10 Normal 5-15 [facility] Comment on above: Order Comment: Pt de nts to see if she needs KCL with Lasix Performed By: #### L 500.2500 ####[facility] [address] [place], [address] GFR/1.73 sq M.predicted among non-blacks MDRD (S/P/Bld) [Vol rate/Area] 36 mL/min/{1.73_m2} Low >60 [facility] Comment on above: Order Comment: Pt de nts to see if she needs KCL with Lasix Result Comment: mL/m in/1.73m2 CKD-EPI Creatinine Equation (2020) Performed By: #### L 500.2500 ####[facility] [address] [place], [address] Glucose [Mass/Vol] 85 mg/dL Normal 70-99 [facility] Comment on above: Order Comment: Pt de nts to see if she needs KCL with Lasix Performed By: #### L 500.2500 ####[facility] [address] [place], [address] Potassium [Moles/Vol] 4.9 mmol/L Normal 3.3-5.1 [facility] Comment on above: Order Comment: Pt de nts to see if she needs KCL with Lasix Performed By: #### L 500.2500 ####[facility] [address] [place], [address] Sodium [Moles/Vol] 137 mmol/L Normal 133-145 [facility] Comment on above: Order Comment: Pt de nts to see if she needs KCL with Lasix Performed By: #### L 500.2500 ####[facility] [address] [place], [place], [address] Urea nitrogen [Mass/Vol] 39 mg/dL High 4-19 [facility] Comment on above: Order Comment: Pt wa nts to see if she needs KCL with Lasix Performed By: #### L 500.2500 ####[facility] [address] [place], [place], [id number] Carbon dioxide, total [Moles /volume] in Central venous bloodOrdered By: Latonya Vargas on 11-11-2024 CO2 [Moles/Vol] 25.8 mmol/L 21.0-32.0 [facility] Chloride assayOrdered By: Marilyn Vargas on 11-11-2024 Chloride [Moles/Vol] 101 mmol/L 98-108 [facility] GFR/1.73 sq M.predicted elissa g non-blacks MDRD (S/P/Bld) [Vol rate/Area]Ordered By: Latonya Vargas on 11-11-2024 Estimated GFR (MDRD) Non-Af Amer 36 Low >60 [facility] Comment on above: mL/min/1.73m2 CKD-EP I Creatinine Equation (2020) Glomerular filtration rate ( GFR) estimation/1.73 sq m using serum, plasma, or whole bOrdered By: Latonya Vargas on 11-11-2024 GFR/1.73 sq M.predicted among non-blacks MDRD (S/P/Bld) [Vol rate/Area] 36 mL/min/{1.73_m2} Low >60 [facility] Comment on above: mL/min/1.73m2 CKD-EP I Creatinine Equation (2020) Potassium (Unsp spec) [Mass/ Vol]Ordered By: Latonya Vargas on 11-11-2024 Potassium [Moles/Vol] 4.9 mmol/L 3.3-5.1 [facility] Potassium measurement (mass/ volume)Ordered By: Latonya Vargas on 11-11-2024 Potassium (Unsp spec) [Mass/Vol] 4.9 mmol/L 3.3-5.1 [facility] Serum creatinine measurement (mass/volume)Ordered By: Latonya Vargas on 11-11-2024 Creatinine [Mass/Vol] 1.42 mg/dL High 0.70-1.20 [facility] Serum glucose measurement (m ass/volume)Ordered By: Latonya Vargas on 11-11-2024 Glucose [Mass/Vol] 85 mg/dL 70-99 [facility] Serum or plasma calcium jose urement (mass/volume)Ordered By: Latonya Vargas on 11-11-2024 Calcium [Mass/Vol] 9.5 mg/dL 7.6-11.0 [facility] Serum or plasma urea nitroge n measurement (mass/volume)Ordered By: Latonya Vargas on 11-11-2024 Urea nitrogen [Mass/Vol] 39 mg/dL High 4-19 [facility] Sodium levelOrdered By: Yunier Vargas on 11-11-2024 Sodium [Moles/Vol] 137 mmol/L 133-145 [facility] CNPTOUTREACHon 11-09-2024 CNPTOUTREACH Normal [facility] CNOVon 10-20-2024 CNOV Normal [facility] Brain/Head without Contrasto n 10-12-2024 Brain/Head without Contrast [facility] Imaging Services [address] [place] [id number] Brain/Head without Contrast MR#: [id number] Acct: [id number] Name: GEOFFREY NASSAR Rep #: [id number] : 1935 F 89 From: Radames De Leon MD PCP: Dr. eKn Contreras MD Status: REG CLI Study: Brain/Head without Contrast Date of Exam: 01/29 Exam# [id number] Ordering Dr: Jann Mello MD PROCEDURE: BRAIN/HEAD WITHOUT CONTRAST REASON FOR EXAM: Daily headache. TECHNIQUE: CT of the head without contrast was performed. COMPARISON: 08/08/2024 CT. FINDINGS: Moderate global parenchymal atrophy. Moderate chronic microvascular ischemia. No evidence of acute hemorrhage or infarction. No extra-axial blood or fluid collections. The paranasal sinuses are clear. The calvarial vault and skull base are intact. CT/Brain/Head without Contrast IMPRESSION: No acute intracranial abnormalities. One or more dose reduction techniques were used (e.g., Automated exposure control, adjustment of the mA and/or kV according to patient size, use of iterative reconstruction technique). Reading Location: [facility] CC: Dr. Jann Mello MD; Dr. Ken Contreras MD Leak Patcher: Signed [facility] CNOVon 10-11-2024 CNOV [facility] CNPNon 09-28-2024 CNPN [facility] 12 Lead EKGon 09-05-2024 12 Lead EKG [facility] Cardiovascular Services [address] [place] [address] 12 Lead EKG 09/05/24 1757 MR#: [id number] Acct: [id number] Name: GEOFFREY NASSAR Rep #: [id number] : 1935 89 From: Zane Mcpherson MD Attending Dr: Status: DEP ER Ordering Dr: Patrice Brady DO Date: 09/05/24 Location: ED Sex: F C Admitted: Test Reason : Blood Pressure : */* mmHG Vent. Rate : 64 BPM Atrial Rate : 64 BPM P-R Int : 212 ms QRS Dur : 78 ms QT Int : 434 ms P-R-T Axes : 53 1 62 degrees QTcB Int : 447 ms Atrial-paced rhythm with prolonged AV conduction Low voltage QRS Abnormal ECG Confirmed by ZANE MCPHERSON MD ([id number]), editor department MAUREEN DOVE ([id number]) on 09/06/2024 8:01:16 AM Referred By: Confirmed By: ZANE MCPHERSON MD 09/06/24 0801 Date Zane Mcpherson MD CC: Dr. Patrice Brady DO; Dr. Ken Contreras MD Signed [facility] Absolute neutrophil countOrd ered By: Patrice Brady on 09-05-2024 Neutrophils (Bld) [#/Vol] 5.4 10*3/uL 2.0-7.7 [facility] BNP (brain natriuretic pepti de measurement)Ordered By: Patrice Brady on 09-05-2024 Natriuretic peptide B (Bld) [Mass/Vol] 26.3 pg/mL 0-100 [facility] BNP,B-Type NATRIURETIC PEPTI Lukas 09-05-2024 Natriuretic peptide B (Bld) [Mass/Vol] 26.3 pg/mL Normal 0-100 [facility] Comment on above: Performed By: #### L 503.6620, L500.2500, L100.0100, L501.4020, L501.9520 #### [facility] Laboratory [address] [place], [address] Basic Metabolic Profile (BMP )on 09-05-2024 BUN/CRE 28.8 RATIO High 10-20 [facility] Comment on above: Order Comment: 'TROP ' Serial specimen #1, #2 or #3: 1 Performed By: #### L 503.6620, L500.2500, L100.0100, L501.4020, L501.9520 ####[facility] [address] [place], [address] CA,Total 9.6 mg/dL Normal 8.5-10.1 [facility] Comment on above: Order Comment: 'TROP ' Serial specimen #1, #2 or #3: 1 Performed By: #### L 503.6620, L500.2500, L100.0100, L501.4020, L501.9520 ####[facility] [address] [place], [address] ECRCL 27.56 ml/min Normal [facility] Comment on above: Order Comment: 'TROP ' Serial specimen #1, #2 or #3: 1 Performed By: #### L 503.6620, L500.2500, L100.0100, L501.4020, L501.9520 ####[facility] [address] [place], [address] EST GFR - AA 46 mL/min Low >60 [facility] Comment on above: Order Comment: 'TROP ' Serial specimen #1, #2 or #3: 1 Result Comment: Afri can [place] GFR Calc Performed By: #### L 503.6620, L500.2500, L100.0100, L501.4020, L501.9520 ####[facility] [address] [place], [address] GAP 6 Normal 5-15 [facility] Comment on above: Order Comment: 'TROP ' Serial specimen #1, #2 or #3: 1 Performed By: #### L 503.6620, L500.2500, L100.0100, L501.4020, L501.9520 ####[facility] [address] [place], [address] GFR/1.73 sq M.predicted among non-blacks MDRD (S/P/Bld) [Vol rate/Area] 38 mL/min/{1.73_m2} Low >60 [facility] Comment on above: Order Comment: 'TROP ' Serial specimen #1, #2 or #3: 1 Result Comment: Non- GFR Calc Performed By: #### L 503.6620, L500.2500, L100.0100, L501.4020, L501.9520 ####[facility] [address] [place], [address] Basophil percentageOrdered B y: Patrice Brady on 09-05-2024 Basophils/100 WBC (Bld) 0.7 % 0-1 [facility] Blood urea nitrogen (BUN)/cr eatinine ratioOrdered By: Patrice Brady on 09-05-2024 Urea nitrogen/Creatinine [Mass ratio] 28.8 mg/mg High - [facility] CBC W/Diff, Automatedon 08-09 Absolute Lymph 2.37 X10 3/uL Normal 0.83-4.51 [facility] Comment on above: Performed By: #### L 503.6620, L500.2500, L100.0100, L501.4020, L501.9520 #### [facility] Laboratory [address] [place], [address] Absolute Neut 5.4 X10 3/uL Normal 2.0-7.7 [facility] Comment on above: Performed By: #### L 503.6620, L500.2500, L100.0100, L501.4020, L501.9520 #### [facility] [address] [place], [address] Basophils/100 WBC (Bld) 0.7 % Normal 0-1 [facility] Comment on above: Performed By: #### L 503.6620, L500.2500, L100.0100, L501.4020, L501.9520 #### [facility] [address] [place], [address] Eosinophils/100 WBC (Bld) 3.3 % Normal 0-5 [facility] Comment on above: Performed By: #### L 503.6620, L500.2500, L100.0100, L501.4020, L501.9520 #### [facility] Laboratory [address] [place], [address] Erythrocyte distribution width (RBC) [Ratio] 15.4 % High 11.6-14.6 [facility] Comment on above: Performed By: #### L 503.6620, L500.2500, L100.0100, L501.4020, L501.9520 #### [facility] Laboratory [address] [place], [address] Hematocrit (Bld) [Volume fraction] 38.8 % Normal 37-47 [facility] Comment on above: Performed By: #### L 503.6620, L500.2500, L100.0100, L501.4020, L501.9520 #### [facility] Laboratory [address] [place], [address] Hemoglobin (Bld) [Mass/Vol] 12.3 g/dL Normal 12.0-15.0 [facility] Comment on above: Performed By: #### L 503.6620, L500.2500, L100.0100, L501.4020, L501.9520 #### [facility] [address] [place], [address] IG% 0.400 Normal 0.0-0.9 [facility] Comment on above: Result Comment: IG% - Immature Granulocytes (promyelocytes, myelocytes and metamyelocytes) > 1% indicates that a LEFT SHIFT is Present. Performed By: #### L 503.6620, L500.2500, L100.0100, L501.4020, L501.9520 #### [facility] [address] [place], [address] Lymphocytes/100 WBC (Bld) 26.0 % Normal 19-41 [facility] Comment on above: Performed By: #### L 503.6620, L500.2500, L100.0100, L501.4020, L501.9520 #### [facility] [address] [place], [address] MCH (RBC) [Entitic mass] 30.4 pg Normal 27.0-32.0 [facility] Comment on above: Performed By: #### L 503.6620, L500.2500, L100.0100, L501.4020, L501.9520 #### [facility] [address] [place], [address] MCHC (RBC) [Mass/Vol] 31.7 g/dL Low 32-36 [facility] Comment on above: Performed By: #### L 503.6620, L500.2500, L100.0100, L501.4020, L501.9520 #### [facility] [address] [place], [address] MCV (RBC) [Entitic vol] 95.8 fL Normal 81-99 [facility] Comment on above: Performed By: #### L 503.6620, L500.2500, L100.0100, L501.4020, L501.9520 #### [facility] [address] [place], [address] Monocytes/100 WBC (Bld) 10.6 % High 0-10 [facility] Comment on above: Performed By: #### L 503.6620, L500.2500, L100.0100, L501.4020, L501.9520 #### [facility] [address] [place], [address] Neutrophils/100 WBC (Bld) 59.0 % Normal 47-70 [facility] Comment on above: Performed By: #### L 503.6620, L500.2500, L100.0100, L501.4020, L501.9520 #### [facility] Laboratory [address] [place], [address] Nucleated RBC (Bld) [#/Vol] 0 10*3/uL Normal 0-5 [facility] Comment on above: Performed By: #### L 503.6620, L500.2500, L100.0100, L501.4020, L501.9520 #### [facility] Laboratory [address] [place], [address] Platelet mean volume (Bld) [Entitic vol] 9.8 fL Normal 6.2-12.0 [facility] Comment on above: Performed By: #### L 503.6620, L500.2500, L100.0100, L501.4020, L501.9520 #### [facility] Laboratory [address] [place], [address] Platelets (Bld) [#/Vol] 259 10*3/uL Normal 150-450 [facility] Comment on above: Performed By: #### L 503.6620, L500.2500, L100.0100, L501.4020, L501.9520 #### [facility] Laboratory [address] [place], [address] RBC (Bld) [#/Vol] 4.05 10*6/uL Low 4.2-5.4 [facility] Comment on above: Performed By: #### L 503.6620, L500.2500, L100.0100, L501.4020, L501.9520 #### [facility] Laboratory [address] [place], [address] RDW SD 53.9 fl High 35.1-43.9 [facility] Comment on above: Performed By: #### L 503.6620, L500.2500, L100.0100, L501.4020, L501.9520 #### [facility] [address] [place], [address] WBC (Bld) [#/Vol] 9.1 10*3/uL Normal 4.4-11.0 [facility] Comment on above: Performed By: #### L 503.6620, L500.2500, L100.0100, L501.4020, L501.9520 #### [facility] [address] [place], [address] Carbon dioxide measurementOr dered By: Patrice Brady on 09-05-2024 CO2 [Moles/Vol] 29.0 mmol/L Normal 21.0-32.0 [facility] Comment on above: Order Comment: 'TROP ' Serial specimen #1, #2 or #3: 1 Performed By: #### L 503.6620, L500.2500, L100.0100, L501.4020, L501.9520 ####[facility] [address] [place], [address] Chest PA and Lateralon 09-05 Chest PA and Lateral [facility] Imaging Services [address] [place] [address] Chest PA and Lateral MR#: [id number] Acct: [id number] Name: GEOFFREY NASSAR Rep #: [id number] : 1935 F 89 From: Bonifacio Llamas MD PCP: Dr. Ken Contreras MD Status: REG ER Study: Chest PA and Lateral Date of Exam: 09/05/24 Exam# [id number] Ordering Dr: Patrice Brady DO [id number] EXAM: XR CHEST, 2 VIEWS CLINICAL INDICATION: sob TECHNIQUE: Frontal and lateral views of the chest. COMPARISON: 08/26/2024 FINDINGS: LUNGS AND PLEURAL SPACES: Unremarkable. No consolidation or edema. No pneumothorax. No effusion. HEART: Unremarkable. Cardiac silhouette not enlarged. MEDIASTINUM: Central airways and mediastinal contour are unremarkable. BONES/JOINTS: Unremarkable. No acute fracture. SOFT TISSUES: Unremarkable. TUBES, LINES AND DEVICES: Left-sided pacemaker in good position. RAD/Chest PA and Lateral IMPRESSION: No acute findings in the chest. Electronically Signed: Bonifacio Llamas MD at 18:28 EST , CC: Dr. Patrice Brady DO; Dr. Ken Contreras MD Leak Patcher: Signed Normal [facility] Chloride measurementOrdered By: Patrice Brady on 09-05-2024 Chloride [Moles/Vol] 104 mmol/L Normal 98-107 [facility] Comment on above: Order Comment: 'TROP ' Serial specimen #1, #2 or #3: 1 Performed By: #### L 503.6620, L500.2500, L100.0100, L501.4020, L501.9520 ####[facility] [address] [place], [address] Emergency Department Summary on 09-05-2024 Emergency Department Summary [facility] Medical Records Department [address] [place] [address] Emergency Department Summary 09/05/24 MR#: [id number] Acct: [id number] Name: GEOFFREY NASSAR Rep #: [id number] : 1935 89 From: Patrice Brady DO PCP: Dr. Ken Contreras MD Status:REG ER Location: ED HPI History of Present Illness Chief Complaint: Shortness of Breath Narrative Narrative: Patient is a 89-year-old female with a past medical history of sinus bradycardia, hypertension, GERD, PE approximately in [address] Miller, asthma, hypothyroidism who presented to the emergency department chief complaint of low oxygen level. She notes that when she woke up this morning she felt short of breath and checked her oxygen and noted that was 70% on room air. She states that the home health nurse came in today and they noted that her oxygen level was 91% on room air. They state they called the air route traffic controller and they advised her to come in for further evaluation management. [facility] Medical History Presence of cardiac pacemaker ( 05/29/21) Chronotropic incompetence with sinus node dysfunction Sick sinus syndrome Sinus bradycardia Retinal detachment Essential hypertension GERD (gastroesophageal reflux disease) Acute respiratory failure with hypoxia PND (post-nasal drip) History of non-ST elevation myocardial infarction (NSTEMI) Pulmonary nodule Cough Dizziness Bronchiectasis Thrush, oral Dyspnea Chest pain Asthma exacerbation Bilateral SubmassivePE Hypothyroidism Asthmatic bronchitis , chronic Home Medications ???Medication ???Instructions ???Recorded ???Last Taken ???Type acetaminophen 325 mg tablet 650 mg PO QHS pain 11/17/16 11/16/16 History baclofen 10 mg tablet 5 mg PO BID muscle relaxer 11/17/16 11/16/16 History cyanocobalamin (vitamin B-12) 1,000 mcg PO DAILY vitamin 11/17/16 11/16/16 History 1,000 mcg tablet multivitamin 1 tab PO DAILY vitamin 11/17/16 11/16/16 History paroxetine HCl 10 mg tablet 40 mg PO DAILY mental health 11/17/16 05/29/21 History polyethylene glycol 3350 17 gram 17 gm PO DAILY constipation 05/27/17 Unknown History oral powder packet aspirin 81 mg tablet,delayed 81 mg PO DAILY@0800 heart health 11/27/17 Unknown History release lamotrigine 25 mg tablet,extended 25 mg PO DAILY 11/27/17 Unknown History release 24 hr loratadine 10 mg tablet (Claritin) 10 mg PO DAILY allergies 12/27/20 Unknown History albuterol sulfate 2.5 mg/3 mL 2.5 mg inhalation Q4H PRN Sob /Or 01/10/21 05/29/21 History (0.083 %) solution for nebulization Wheezing brimonidine 0.2 %-timolol 0.5 % 1 drp ophthalmic (eye) BID eye 01/10/21 Unknown History eye drops (Combigan) health ketotifen fumarate 0.025 % (0.035 1 drp ophthalmic (eye) BID eye 01/10/21 Unknown History %) eye drops health latanoprost 0.005 % eye drops, 1 drp ophthalmic (eye) QPM eye 01/10/21 Unknown History emulsion health lisinopril 40 mg tablet 40 mg PO DAILY blood pressure 01/10/21 Unknown History lorazepam 1 mg tablet 2 mg PO QHS anxiety 01/10/21 Unknown History pantoprazole 20 mg tablet,delayed 40 mg PO DAILY reflux 01/10/21 05/29/21 History release vibegron 75 mg tablet (Gemtesa) 75 mg PO DAILY 08/07/21 Unknown History albuterol sulfate 90 mcg/actuation 1 - 2 puff inhalation Q4H PRN PRN 02/11/22 Unknown Rx aerosol inhaler Shortness Of Breath #18 grams ascorbic acid (vitamin C) 250 mg 250 mg PO BID 08/19/22 Unknown History tablet lactobacillus combination no.9 4 4,000 mmu cells PO DAILY 08/19/22 Unknown History billion cell capsule (Adult 50 Plus Probiotic) ergocalciferol (vitamin D2) 1,250 50,000 unit PO QMONTH vitamin 09/10/22 Unknown History mcg (50,000 unit) capsule conjugated estrogens 0.625 mg/gram 0.625 mg vaginal .3xweek 02/11/24 Unknown History vaginal cream levothyroxine 88 mcg tablet 88 mcg PO .COMPLEX thyroid 07/01/24 Unknown History furosemide 40 mg tablet 40 mg PO QAM #90 tabs 07/04/24 Unknown Rx hydrocodone-acetamino phen 5-325mg 1 tab PO Q6H PRN PRN Pain 3 days 08/08/24 Unknown Rx 5mg-325mg #10 TABLETS fluticasone furoate 100 1 inh inhalation DAILY #60 ea 08/22/24 Unknown Rx mcg-vilanterol 25 mcg/dose inhalation powder (Breo Ellipta) Allergy/AdvReac Type Severity Reaction Status Date / Time ciprofloxacin (From Cipro) Allergy Itching Verified 09/05/24 17:14 diphenhydramine (From Allergy Rash Verified 09/05/24 17:14 Benadryl) Penicillins Allergy Hives Verified 09/05/24 17:14 shellfish derived Allergy Anaphylaxis Verified 09/05/24 17:14 Sulfa (Sulfonamide Allergy Upset Verified 09/05/24 17:14 Antibiotics) Stomach tiotropium (From Spiriva Allergy Other Verified 09/05/24 17:14 with HandiHaler) ketamine AdvReac hallucinati Ve (more content not included)... Normal [facility] Eosinophil percentageOrdered By: Patrice rBady on 09-05-2024 Eosinophils/100 WBC (Bld) 3.3 % 0-5 [facility] Erythrocyte distribution wid th ratioOrdered By: Patrice Brady on 09-05-2024 Erythrocyte distribution width (RBC) [Ratio] 15.4 % High 11.6-14.6 [facility] Erythrocyte distribution wid th standard deviationOrdered By: Patrice Brady on 09-05-2024 Erythrocyte distribution width (RBC) [Entitic vol] 53.9 fL High 35.1-43.9 [facility] Estimated glomerular filtrat ion rate (GFR) AmericanOrdered By: Patrice Brayd on 09-05-2024 Estimated GFR (MDRD) Amer 46 mL/min Low >60 [facility] Comment on above: GFR Calc Estimation of creatinine eric aranceOrdered By: Patrice Brady on 09-05-2024 Estimated Creatinine Clearance Calc 27.56 ml/min [facility] Glomerular filtration rate ( GFR) estimationOrdered By: Patrice Brady on 09-05-2024 Estimated GFR (MDRD) Non-Af Amer 38 mL/min Low >60 [facility] Comment on above: Non- GFR Calc Glucose measurementOrdered B y: Patrice Brady on 09-05-2024 Glucose [Mass/Vol] 99 mg/dL Normal 74-106 [facility] Comment on above: Order Comment: 'TROP ' Serial specimen #1, #2 or #3: 1 Performed By: #### L 503.6620, L500.2500, L100.0100, L501.4020, L501.9520 ####[facility] [address] [place], [place], [address] Hematocrit Auto (Bld) [Volum e fraction]Ordered By: Patrice Jose Antonio on 09-05-2024 Hematocrit (Bld) [Volume fraction] 38.8 % 37-47 [facility] Hemoglobin measurementOrdere d By: Patrice Jose Antonio on 09-05-2024 Hemoglobin (Bld) [Mass/Vol] 12.3 g/dL 12.0-15.0 [facility] Immature granulocytes/100 WB C Auto (Bld)Ordered By: Patricejuan carlos Brady on 09-05-2024 Immature granulocytes/100 WBC (Bld) 0.400 % 0.0-0.9 [facility] Comment on above: IG% - Immature Granu locytes (promyelocytes, myelocytes and metamyelocytes) > 1% indicates that a LEFT SHIFT is Present. Influenza virus A and B and SARS-CoV-2 (COVID-19) and Respiratory syncytial virus RNAOrdered By: Patrice Jose Antonio on 09-05-2024 SARS-CoV-2 (COVID-19) RNA AQUILINO+probe Ql (Unsp spec) [facility] L501.4020on 09-05-2024 TROPONIN-I HS 6 pg/mL Normal 3.0-54.0 [facility] Comment on above: Order Comment: 'TROP ' Serial specimen #1, #2 or #3: 1 Result Comment: Plejana verma Note: New Test Units and Gender Specific Reference Ranges. For more information see Policy Stat Procedure [place] High Sensitivity Troponin (TNIH) and attachments. Performed By: #### L 503.6620, L500.2500, L100.0100, L501.4020, L501.9520 ####[facility] [address] [place], [place], [address] Lymphocytes Auto (Unsp spec) [#/Vol]Ordered By: Patrice Brady on 09-05-2024 Lymphocytes (Bld) [#/Vol] 2.37 10*3/uL 0.83-4.51 [facility] Lymphocytes/100 WBC Auto (Un sp spec)Ordered By: Patrice Brady on 09-05-2024 Lymphocytes/100 WBC (Bld) 26.0 % 19-41 [facility] M100.678on 09-05-2024 M100.678 Pending SARS-CoV-2 (COVID 19) Negative INFLUENZA A Negative INFLUENZA B Negative RSV PCR Negative Normal [facility] Comment on above: Performed By: #### M 100.678 ####[facility] [address] [facility] [place], [place], [id number] MCV (mean corpuscular volume ) determinationOrdered By: Patrice Brady on 09-05-2024 MCV (RBC) [Entitic vol] 95.8 fL 81-99 [facility] Mean corpuscular hemoglobin (MCH) determinationOrdered By: Patrice Brady on 09-05-2024 MCH (RBC) [Entitic mass] 30.4 pg 27.0-32.0 [facility] Mean corpuscular hemoglobin concentration (MCHC) determinationOrdered By: Patrice Brady on 09-05-2024 MCHC (RBC) [Mass/Vol] 31.7 g/dL Low 32-36 [facility] Mean platelet volume determi nationOrdered By: Patrice Brady on 09-05-2024 Platelet mean volume (Bld) [Entitic vol] 9.8 fL 6.2-12.0 [facility] Monocyte percentageOrdered B y: Patrice Brady on 09-05-2024 Monocytes/100 WBC (Bld) 10.6 % High 0-10 [facility] Neutrophil percentageOrdered By: Patrice Brady on 09-05-2024 Neutrophils/100 WBC (Bld) 59.0 % 47-70 [facility] Nucleated red blood cell per centageOrdered By: Patrice Brady on 09-05-2024 Nucleated RBC/100 WBC (Bld) [Ratio] 0 % 0-5 [facility] Platelet countOrdered By: Earl car Jose Antonio on 09-05-2024 Platelets (Bld) [#/Vol] 259 10*3/uL 150-450 [facility] Potassium measurementOrdered By: Patrice Brady on 09-05-2024 Potassium [Moles/Vol] 4.0 mmol/L Normal 3.5-5.1 [facility] Comment on above: Order Comment: 'TROP ' Serial specimen #1, #2 or #3: 1 Performed By: #### L 503.6620, L500.2500, L100.0100, L501.4020, L501.9520 ####[facility] [address] [place], [address] RBC Auto (Bld) [#/Vol]Ordere d By: Patrice Brady on 09-05-2024 RBC (Bld) [#/Vol] 4.05 10*6/uL Low 4.2-5.4 [facility] Serum anion gap measurementO rdered By: Patrice Brady on 09-05-2024 Anion gap [Moles/Vol] 6 mmol/L 5-15 [facility] Serum or plasma calcium jose urement (mass/volume)Ordered By: Patrice Brady on 09-05-2024 Calcium [Mass/Vol] 9.6 mg/dL 8.5-10.1 [facility] Serum or plasma creatinine m easurement (mass/volume)Ordered By: Patrice Brady on 09-05-2024 Creatinine [Mass/Vol] 1.39 mg/dL High 0.55-1.02 [facility] Comment on above: The validity of the calculated GFR & GFRAA in patients over 70 years has not been determined. Clinical correlation is essential. Order Comment: 'TROP ' Serial specimen #1, #2 or #3: 1 Result Comment: The validity of the calculated GFR GFRAA in patients over 70 years has not been determined. Clinical correlation is essential. Performed By: #### L 503.6620, L500.2500, L100.0100, L501.4020, L501.9520 ####[facility] [address] [place], [address] Serum or plasma urea nitroge n measurement (mass/volume)Ordered By: Patrice Brady on 09-05-2024 Urea nitrogen [Mass/Vol] 40 mg/dL High 7-18 [facility] Comment on above: Order Comment: 'TROP ' Serial specimen #1, #2 or #3: 1 Performed By: #### L 503.6620, L500.2500, L100.0100, L501.4020, L501.9520 ####[facility] [address] [place], [address] Sodium levelOrdered By: Bib Brady on 09-05-2024 Sodium [Moles/Vol] 139 mmol/L Normal 136-145 [facility] Comment on above: Order Comment: 'TROP ' Serial specimen #1, #2 or #3: 1 Performed By: #### L 503.6620, L500.2500, L100.0100, L501.4020, L501.9520 ####[facility] [address] [place], [address] TSH QnOrdered By: Patrice rangel on 09-05-2024 Thyroid Stimulating Hormone (TSH) 0.438 uIU/mL 0.358-3.740 [facility] Thyroid Stim Hormone (TSH)on 09-05-2024 TSH 0.438 uIU/mL Normal 0.358-3.740 [facility] Comment on above: Order Comment: 'TROP ' Serial specimen #1, #2 or #3: 1 Performed By: #### L 503.6620, L500.2500, L100.0100, L501.4020, L501.9520 ####[facility] [address] [place], [address] Troponin IOrdered By: Patrice Brady on 09-05-2024 Troponin I High Sensitivity 6 pg/mL 3.0-54.0 [facility] Comment on above: Please Note: New Tiara t Units and Gender Specific Reference Ranges. For more information see Policy Stat Procedure [place] High Sensitivity Troponin (TNIH) and attachments. White blood cell (WBC) count Ordered By: Patrice Brady on 09-05-2024 WBC (Bld) [#/Vol] 9.1 10*3/uL 4.4-11.0 [facility] CNPNon 08-11-2024 CNPN Normal [facility] Brain/Head without Contrasto n 08-08-2024 Brain/Head without Contrast [facility] Imaging Services [address] [place] [address] Brain/Head without Contrast MR#: [id number] Acct: [id number] Name: GEOFFREY NASSAR Rep #: [id number] : 1935 F 89 From: Barak Vuong MD PCP: Dr. Ken Contreras MD Status: REG ER Study: Brain/Head without Contrast Date of Exam: 10/31 Exam# [id number] Ordering Dr: Shad Hunter MD [id number] STUDY: CT BRAIN WITHOUT CONTRAST REASON FOR EXAM: Female, 89 years old. trauma RADIATION DOSAGE (If Supplied By Facility): CTDIvol = ( 44.99 ) mGy, DLP = ( 796.11 ) mGycm TECHNIQUE: Transaxial CT imaging of the brain was performed without administration of intravenous contrast material. Individualized dose optimization techniques were used for this CT. COMPARISON: October 02, 2023 FINDINGS: Normal soft tissue structures. Normal calvarium. Calcific plaquing of the cavernous carotids Atrophy and moderate periventricular white matter ischemic changes. Normal basal ganglia and thalami. Normal brainstem. Normal cerebellum. Empty sella deformity of uncertain significance There is no intracranial hemorrhage. There are no findings of an acute ischemic infarction. Postsurgical changes of the orbits. Mucosal thickening of the right maxillary sinus CT/Brain/Head without Contrast IMPRESSION: Atrophy and moderate periventricular white matter ischemic changes. No evidence for acute intracranial hemorrhage. Electronically Signed: Barak Vuong MD at 16:23 EST Reading Location ID and State: [address] [place] [address] Tel , Service support , CC: Dr. Shad Hunter MD; Dr. Ken Contreras MD Leak Patcher: Signed Normal [facility] CNPNon 08-08-2024 CNPN Normal [facility] Emergency Department Summary on 08-08-2024 Emergency Department Summary [facility] Medical Records Department [address] [place] [id number] Emergency Department Summary 08/08/24 MR#: [id number] Acct: [id number] Name: GEOFFREY NASSAR Rep #: [id number] : 1935 89 From: Shad Hunter MD PCP: Dr. Ken Contreras MD Status:REG ER Location: ED HPI HPI - Fall History of Present Illness Chief Complaint: Fall Informant: patient and family Narrative Narrative: 89-year-old female had a fall last night as result of getting her feet tangled up while getting out of of her computer chair at home. She states she had socks on with grippies on the bottom and she thinks maybe they got stuck on the carpet or her other foot. No prodromal symptoms. She fell against furniture including a PNO bench, hitting the back of her head and her left chest wall and her left forearm. No loss of consciousness. EMS was contacted and came and evaluated her and she did not come to the ER. However this morning she developed a headache that she did not have last night, and just feeling poorly. No nausea or vomiting. No focal neurologic symptoms. No vision changes. she is on no anticoagulants or antiplatelets right now. [facility] Medical History Presence of cardiac pacemaker ( 05/29/21) Chronotropic incompetence with sinus node dysfunction Sick sinus syndrome Sinus bradycardia Retinal detachment Essential hypertension GERD (gastroesophageal reflux disease) Acute respiratory failure with hypoxia PND (post-nasal drip) History of non-ST elevation myocardial infarction (NSTEMI) Pulmonary nodule Cough Dizziness Bronchiectasis Thrush, oral Dyspnea Chest pain Asthma exacerbation Bilateral SubmassivePE Hypothyroidism Asthmatic bronchitis , chronic Home Medications ???Medication ???Instructions ???Recorded ???Last Taken ???Type acetaminophen 325 mg tablet 650 mg PO QHS pain 11/17/16 11/16/16 History baclofen 10 mg tablet 5 mg PO BID muscle relaxer 11/17/16 11/16/16 History cyanocobalamin (vitamin B-12) 1,000 mcg PO DAILY vitamin 11/17/16 11/16/16 History 1,000 mcg tablet multivitamin 1 tab PO DAILY vitamin 11/17/16 11/16/16 History paroxetine HCl 10 mg tablet 40 mg PO DAILY mental health 11/17/16 05/29/21 History polyethylene glycol 3350 17 gram 17 gm PO DAILY constipation 05/27/17 Unknown History oral powder packet aspirin 81 mg tablet,delayed 81 mg PO DAILY@0800 heart health 11/27/17 Unknown History release lamotrigine 25 mg tablet,extended 25 mg PO DAILY 11/27/17 Unknown History release 24 hr loratadine 10 mg tablet (Claritin) 10 mg PO DAILY allergies 12/27/20 Unknown History albuterol sulfate 2.5 mg/3 mL 2.5 mg inhalation Q4H PRN Sob /Or 01/10/21 05/29/21 History (0.083 %) solution for nebulization Wheezing brimonidine 0.2 %-timolol 0.5 % 1 drp ophthalmic (eye) BID eye 01/10/21 Unknown History eye drops (Combigan) health ketotifen fumarate 0.025 % (0.035 1 drp ophthalmic (eye) BID eye 01/10/21 Unknown History %) eye drops health latanoprost 0.005 % eye drops, 1 drp ophthalmic (eye) QPM eye 01/10/21 Unknown History emulsion health lisinopril 40 mg tablet 40 mg PO DAILY blood pressure 01/10/21 Unknown History lorazepam 1 mg tablet 2 mg PO QHS anxiety 01/10/21 Unknown History pantoprazole 20 mg tablet,delayed 40 mg PO DAILY reflux 01/10/21 05/29/21 History release vibegron 75 mg tablet (Gemtesa) 75 mg PO DAILY 08/07/21 Unknown History albuterol sulfate 90 mcg/actuation 1 - 2 puff inhalation Q4H PRN PRN 02/11/22 Unknown Rx aerosol inhaler Shortness Of Breath #18 grams ascorbic acid (vitamin C) 250 mg 250 mg PO BID 08/19/22 Unknown History tablet lactobacillus combination no.9 4 4,000 mmu cells PO DAILY 08/19/22 Unknown History billion cell capsule (Adult 50 Plus Probiotic) ergocalciferol (vitamin D2) 1,250 50,000 unit PO QMONTH vitamin 09/10/22 Unknown History mcg (50,000 unit) capsule fluticasone furoate 100 1 inh inhalation DAILY #60 ea 11/16/23 Unknown Rx mcg-vilanterol 25 mcg/dose inhalation powder (Breo Ellipta) conjugated estrogens 0.625 mg/gram 0.625 mg vaginal .3xweek 02/11/24 Unknown History vaginal cream levothyroxine 88 mcg tablet 88 mcg PO .COMPLEX thyroid 07/01/24 Unknown History furosemide 40 mg tablet 40 mg PO QAM #90 tabs 07/04/24 Unknown Rx hydrocodone-acetamino phen 5-325mg 1 tab PO Q6H PRN PRN Pain 3 days 08/08/24 Unknown Rx 5mg-325mg #10 TABLETS Allergy/AdvReac Type Severity Reaction Status Date / Time ciprofloxacin (From Cipro) Allergy Itching Verified 07/01/24 13:23 diphenhydramine (From Allergy Rash Verified 07/01/24 13:23 Benadryl) Penicillins Allergy Hives Verified 07/01/24 13:23 shellfish derived Allergy Anaphylaxis Verified 07/01/24 13:23 Sulfa (Sulfonamide Allergy (more content not included)... Normal [facility] Ribs Uni Min 3V w/PA Cheston 08-08-2024 Ribs Uni Min 3V w/PA Chest [facility] Imaging Services [address] [place] [address] Ribs Uni Min 3V w/PA Chest MR#: [id number] Acct: [id number] Name: GEOFFREY NASSAR RA Rep #: [id number] : 1935 F 89 From: Barak Vuong MD PCP: Dr. Ken Contreras MD Status: REG ER Study: Ribs Uni Min 3V w/PA Chest Date of Exam: 08/08 Exam# [id number] Ordering Dr: Shad Hunter MD [id number] STUDY: X-RAY - UNILATERAL RIBS ( LEFT ) WITH CHEST REASON FOR EXAM: Female, 89 years old. injury/fall TECHNIQUE - RIBS: 2 view(s) of the ribs. TECHNIQUE - CHEST: AP COMPARISON: None. FINDINGS - RIBS: Normal visualized ribs without a demonstrated fracture. FINDINGS - CHEST: The lungs are clear and expanded. There is no demonstrated pleural abnormality. Pacer noted on the left with electrodes in satisfactory position Normal size heart. Normal mediastinum and michelle. Normal visualized pulmonary arteries. Mildly calcified aortic arch and descending thoracic aorta. Normal visualized thoracic spine. Normal visualized ribs, clavicles, and shoulders. Postop changes in the right upper quadrant RAD/Ribs Uni Min 3V w/PA Chest IMPRESSION: RIBS: Normal x-ray examination of the ribs. CHEST: No acute cardiopulmonary pathology Electronically Signed: Barak Vuong MD at 16:36 EST Reading Location ID and State: [facility] / [place] Tel , Service support , CC: Dr. Shad Hunter MD; Dr. Ken Contreras MD Leak Patcher: Signed Normal [facility] CNOVon 07-08-2024 CNOV Normal [facility] CNOVon 07-06-2024 CNOV Normal [facility] BNP,B-Type NATRIURETIC PEPTI Lukas 07-01-2024 Natriuretic peptide B (Bld) [Mass/Vol] 103.7 pg/mL High 0-100 [facility] Comment on above: Performed By: #### L 500.2500, L503.6620 #### [facility] [address] [place], [address] Basic Metabolic Profile (BMP )on 07-01-2024 BUN/CRE 29.1 RATIO High 10-20 [facility] Comment on above: Performed By: #### L 500.2500, L503.6620 #### [facility] [address] [place], [address] CA,Total 9.7 mg/dL Normal 8.5-10.1 [facility] Comment on above: Performed By: #### L 500.2500, L503.6620 #### [facility] [address] [place], [address] Chloride [Moles/Vol] 107 mmol/L Normal 98-107 [facility] Comment on above: Performed By: #### L 500.2500, L503.6620 #### [facility] [address] [place], [address] CO2 [Moles/Vol] 28.0 mmol/L Normal 21.0-32.0 [facility] Comment on above: Performed By: #### L 500.2500, L503.6620 #### [facility] [address] [place], [address] Creatinine [Mass/Vol] 1.00 mg/dL Normal 0.55-1.02 [facility] Comment on above: Result Comment: The validity of the calculated GFR GFRAA in patients over 70 years has not been determined. Clinical correlation is essential. Performed By: #### L 500.2500, L503.6620 #### [facility] [address] [place], [address] EST GFR - AA 68 mL/min Normal >60 [facility] Comment on above: Result Comment: Afri can [place] GFR Calc Performed By: #### L 500.2500, L503.6620 #### [facility] [address] [place], [address] GAP 2 Low 5-15 [facility] Comment on above: Performed By: #### L 500.2500, L503.6620 #### [facility] [address] [place], [address] GFR/1.73 sq M.predicted among non-blacks MDRD (S/P/Bld) [Vol rate/Area] 56 mL/min/{1.73_m2} Low >60 [facility] Comment on above: Result Comment: Non- GFR Calc Performed By: #### L 500.2500, L503.6620 #### [facility] [address] [place], [address] Glucose [Mass/Vol] 91 mg/dL Normal 74-106 [facility] Comment on above: Performed By: #### L 500.2500, L503.6620 #### [facility] [address] [place], [address] Potassium [Moles/Vol] 5.0 mmol/L Normal 3.5-5.1 [facility] Comment on above: Performed By: #### L 500.2500, L503.6620 #### [facility] [address] [place], [address] Sodium [Moles/Vol] 137 mmol/L Normal 136-145 [facility] Comment on above: Performed By: #### L 500.2500, L503.6620 #### [facility] [address] [place], [address] Urea nitrogen [Mass/Vol] 29 mg/dL High 7-18 [facility] Comment on above: Performed By: #### L 500.2500, L503.6620 #### [facility] [address] [place], [address] Cardiology Visit Reporton Cardiology Visit Report [facility] [address] [place] [address] OFFICE VISIT Date of Service: 07/01/24 MR#: [id number] Acct: [id number] Name: GEOFFREY NASSAR Rep #: [id number] : 1935 Provider: Dr. Zane Mcpherson MD Age/Sex: 89/F Location: [facility] Status: Signed HPI [facility] History of Present Illness Details: This is an 89-year-old female who presents here today for a cardiovascular follow up visit. She has a history of sinus bradycardia, chronotropic incompetence, sick sinus syndrome, and permanent pacemaker placement superimposed upon a history of non-STEMI that was felt to be related to submassive pulmonary emboli approximately 3 years ago and hypertension. As you recall, she had a 14-day ambulatory monitor that demonstrated sinus rhythm with an average heart rate of 49 bpm, few PVCs, PACs, one episode of PSVT, junctional rhythm and idioventricular rhythm. Because of this she was evaluated by EP at [facility]. She underwent a PPM placement in 05/2021. From a cardiac standpoint, the patient is doing well. She does use a cane to help with ambulation. She denies any palpitations, chest pain, pressure or heaviness. She attests to SOB, but no orthopnea, and PND. She does not have bleeding issues; no blood in urine, stool or nosebleeds. She does acknowledge chronic fatigue. She denies myalgias, or claudication. She does not have edema, or sudden weight gain. She does acknowledge occasional lightheadedness and dizziness. She denies syncopal or near syncopal episodes, and headaches. She also complains of oral thrush on and off. 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 Required: No Accompanied by: Self Is patient in pain?: No Allergies ciprofloxacin (From Cipro) Allergy (Verified 07/01/24 13:23) Itching diphenhydramine (From Benadryl) Allergy (Verified 07/01/24 13:23) Rash Penicillins Allergy (Verified 07/01/24 13:23) Hives shellfish derived Allergy (Verified 07/01/24 13:23) Anaphylaxis Sulfa (Sulfonamide Antibiotics) Allergy (Verified 07/01/24 13:23) Upset Stomach tiotropium (From Spiriva with HandiHaler) Allergy (Verified 07/01/24 13:23) Other ketamine Adverse Reaction (Verified 07/01/24 13:23) hallucinations Medications ???Medication ???Instructions ???Recorded ???Confirmed ???Type acetaminophen 325 mg tablet 650 mg PO QHS pain 11/17/16 07/01/24 History baclofen 10 mg tablet 5 mg PO BID muscle relaxer 11/17/16 07/01/24 History cyanocobalamin (vitamin B-12) 1,000 mcg PO DAILY vitamin 11/17/16 07/01/24 History 1,000 mcg tablet multivitamin 1 tab PO DAILY vitamin 11/17/16 07/01/24 History paroxetine HCl 10 mg tablet 40 mg PO DAILY mental health 11/17/16 07/01/24 History polyethylene glycol 3350 17 gram 17 gm PO DAILY constipation 05/27/17 07/01/24 History oral powder packet aspirin 81 mg tablet,delayed 81 mg PO DAILY@0800 heart health 11/27/17 07/01/24 History release lamotrigine 25 mg tablet,extended 25 mg PO DAILY 11/27/17 07/01/24 History release 24 hr loratadine 10 mg tablet (Claritin) 10 mg PO DAILY allergies 12/27/20 07/01/24 History albuterol sulfate 2.5 mg/3 mL 2.5 mg inhalation Q4H PRN Sob /Or 01/10/21 07/01/24 History (0.083 %) solution for nebulization Wheezing brimonidine 0.2 %-timolol 0.5 % 1 drp ophthalmic (eye) BID eye 01/10/21 07/01/24 History eye drops (Combigan) health ketotifen fumarate 0.025 % (0.035 1 drp ophthalmic (eye) BID eye 01/10/21 07/01/24 History %) eye drops health latanoprost 0.005 % eye drops, 1 drp ophthalmic (eye) QPM eye 01/10/21 07/01/24 History emulsion health lisinopril 40 mg tablet 40 mg PO DAILY blood pressure 01/10/21 07/01/24 History lorazepam 1 mg tablet 2 mg PO QHS anxiety 01/10/21 07/01/24 History pantoprazole 20 mg tablet,delayed 40 mg PO DAILY reflux 01/10/21 07/01/24 History release vibegron 75 mg tablet (Gemtesa) 75 mg PO DAILY 08/07/21 07/01/24 History albuterol sulfate 90 mcg/actuation 1 - 2 puff inhalation Q4H PRN PRN 02/11/22 07/01/24 Rx aerosol inhaler Shortness Of Breath #18 grams ascorbic acid (vitamin C) 250 mg 250 mg PO BID 08/19/22 07/01/24 History tablet lactobacillus combination no.9 4 4,000 mmu cells PO DAILY 08/19/22 07/01/24 History billion cell capsule (Adult 50 Plus Probiotic) ergocalciferol (vitamin D2) 1,250 50,000 unit PO QMONTH vitamin 09/10/22 07/01/24 History mcg (50,000 unit) capsule fluticasone furoate 100 1 inh inhalation DAILY #60 ea 11/16/23 07/01/24 Rx mcg-vilanterol 25 mcg/dose inhalation powder (Breo Ellipta) conjugated (more content not included)... [facility] 06-24-2024 [facility] 06-06-2024 [facility] Telephone (HILDA) GEOFFREY NASSAR ([id number]) 1935 F [place] Date Time Provider Department 06/06/24 KAYA CARTWRIGHT JR During your visit today, we recorded the following information about you: Laurence Torres LPN 06/06/2024 10:36 AM Signed Pt called in and has not heard anything regarding testing to be done at [facility] for a Polysomnogram. I have re-faxed orders, face sheet and supporting information to [phone]. I have asked the department to call pt to schedule. Pt aware if she does not hear from [facility] to call the department to schedule procedure. Referral has been place. Laurence Torres LPN Allergies As of Date: 06/06/2024 Noted Allergy Reaction SHELLFISH CONTAINING PRODUCTS 11/27/2016 16 - Unknown PENICILLAMINE 11/27/2016 16 - Unknown BENADRYL (DIPHENHYDRAMINE HCL) 10/05/2017 2 - Rash CATS 12/19/2005 CIPRO (CIPROFLOXACIN) 03/17/2005 9 - Itching DUST 12/19/2005 KETAMINE 04/07/2019 16 - Unknown MOLD 08/06/2006 PENICILLINS 03/17/2005 2 - Rash SHELLFISH 03/17/2005 12 - Shortness of Breath SPIRIVA WITH HANDIHALER (TIOTROPI*04/13/2008 5 - Intolerance Comments: not help SULFA (SULFONAMIDE ANTIBIOTICS) 12/15/2011 8 - GI Upset SYMBICORT (BUDESONIDE-FORMOTERO L) 11/27/2009 5 - Intolerance Comments: tremor,shaky TETANUS TOXOID ADSORBED 10/14/2007 5 - Intolerance Comments: [facility] Date Reviewed: 05/27/2024 Reviewed by: Ana Frye MA - Fully Assessed Reason for Visit: faxed orders to [facility]- polysomnogram [Other] Prescriptions as of 06/07/2024 - LORazepam (ATIVAN) 2 mg tab Take 1 tablet by mouth daily at bedtime for 90 days. - fluconazole (DIFLUCAN) 150 mg tablet Take 150 mg by mouth one time only. - BREO ELLIPTA 100-25 mcg/dose inhaler Inhale 1 Inhalation as instructed once daily. - baclofen 5 mg tablet Take 1 tablet by mouth two times a day. - ergocalciferol 50,000 unit capsule (VITAMIN D2, DRISDOL) Take 1 capsule by mouth every 4 weeks. - levothyroxine (SYNTHROID) 88 mcg tablet Take 1 tablet by mouth five times a week. Mondays thru Fridays. None on Saturdays and Sundays. - meloxicam (MOBIC) 15 mg tablet Take 1 tablet by mouth once daily. - pantoprazole DR (PROTONIX) 20 mg tablet Take 2 tablets by mouth once daily. - PARoxetine (PAXIL) 40 mg tablet Take 1 tablet by mouth once daily. - amLODIPine (NORVASC) 5 mg tablet Take 1 tablet by mouth once daily. - lisinopril (ZESTRIL) 40 mg tablet Take 1 tablet by mouth once daily. - lamoTRIgine (LAMICTAL) 25 mg tablet Take 1 tablet by mouth once daily. - aspirin, enteric coated (ASPIRIN, ENTERIC COATED) 81 mg EC tablet Take 1 tablet by mouth once daily. - acetaminophen (TYLENOL) 500 mg tablet Take 2 tablets by mouth every 8 hours as needed for pain. - vibegron (GEMTESA) 75 mg tablet Take 1 tablet by mouth once daily. Prescribed by Dr. Hansen - brimonidine-timolol (COMBIGAN) 0.2-0.5 % ophthalmic solution Use 1 Drop in the left eye twice daily. - latanoprost (XALATAN) 0.005 % ophthalmic solution Use 1 Drop in both eyes daily at bedtime. - vit C/E/zinc ox/trevor/lut/zeax (ICAPS AREDS2 ORAL) - loratadine (CLARITIN REDITABS) 10 mg dissolvable tablet Take 1 tablet by mouth once daily as needed (allergies). - DULCOLAX, BISACODYL, ORAL Take 1 tablet by mouth as needed. - polyethylene glycol 3350 (MIRALAX, GLYCOLAX) 17 gram/dose powder Drink a mix of 1 scoop in 8oz of water/beverage once daily as needed for constipation. - cyanocobalamin (VITAMIN B-12) 1,000 mcg tab Take 1,000 mcg by mouth once daily. - albuterol HFA (VENTOLIN HFA) 90 mcg/actuation inhaler Inhale 2 Puffs as instructed every 4 hours as needed for Wheezing/Shortness of Breath. - MULTIVITAMIN TAB Take one(1) tablet daily. 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] 12/19/2005 09/23/2016 Extrinsic asthma [J45.909] 01/29/2006 Unspecified Asthma [J45.909] 03/12/2006 01/20/2010 Bronchiectasis [494] 07/29/2006 11/27/2009 Other specified disorders of rotator cuff syndr*04/09/2007 09/23/2016 Upper back pain [M54.9] 12/13/2007 Pain in joint, pelvic region and thigh [M25.559]12/13/2007 05/20/2016 Essential hypertension [I10] 05/25/2008 Dizziness and giddiness [R42] 08/27/2009 11/11/2012 Bronchiectasis without complication (HCC) [J47.*11/27/2009 Hyperlipemia [E78.5] 06/18/2010 01/08/2017 Enthesopathy of hip region [M76.899] 07/08/2011 04/24/2021 Other disorder of muscle, ligament, and fascia *07/10/2011 12/24/2015 Osteoarthritis [M19.90] 12/18/2011 Foraminal stenosis of cervical reg (more content not included)... Normal [facility] CNPNon 06-01-2024 CNPN Normal [facility] XR Chest PA and Lateralon IMPRESSION: Nonspecific parenchymal changes in right lung base with no definite acute radiographic abnormality. Leak Patcher: PSCB Transcribe Date/Time: May 28 2024 1:52P Dictated by : JASON EMERY MD This examination was interpreted and the report reviewed and electronically signed by: JASON EMERY MD on May 28 2024 1:53PM [facility] DIVISION OF RADIOLOGY * * *Final Report* * * DATE OF EXAM: May 27 2024 9:18AM WOX [id number] - XR CHEST 2V FRONTAL/LAT / PROCEDURE REASON: Oxygen desaturation * * * * Physician Interpretation * * * * EXAMINATION: CHEST RADIOGRAPH (2 VIEW FRONTAL & LATERAL) CLINICAL HISTORY: Oxygen desaturation MQ: XC2_6 EXAM DATE/TIME: 05/27/2024 9:18 AM COMPARISON: 10/04/2023. RESULT: Lines, tubes, and devices: A left pacemaker remains in place. Lungs and pleura: There are minimal increased bronchovascular markings in the right infrahilar region suggestive of mild changes of bronchitis or fibrosis. No consolidation. No lung mass. No pleural effusion. No pneumothorax. Cardiomediastinal silhouette: Normal cardiomediastinal silhouette. Bones and soft tissues: Unremarkable. DIVISION OF RADIOLOGY Provider, [facility] - 05/28/2024 * * *Final Report* * * DATE OF EXAM: May 27 2024 9:18AM WOX [id number] - XR CHEST 2V FRONTAL/LAT / PROCEDURE REASON: Oxygen desaturation * * * * Physician Interpretation * * * * EXAMINATION: CHEST RADIOGRAPH (2 VIEW FRONTAL & LATERAL) CLINICAL HISTORY: Oxygen desaturation MQ: XC2_6 EXAM DATE/TIME: 05/27/2024 9:18 AM COMPARISON: 10/04/2023. RESULT: Lines, tubes, and devices: A left pacemaker remains in place. Lungs and pleura: There are minimal increased bronchovascular markings in the right infrahilar region suggestive of mild changes of bronchitis or fibrosis. No consolidation. No lung mass. No pleural effusion. No pneumothorax. Cardiomediastinal silhouette: Normal cardiomediastinal silhouette. Bones and soft tissues: Unremarkable. IMPRESSION IMPRESSION: Nonspecific parenchymal changes in right lung base with no definite acute radiographic abnormality. Leak Patcher: [facility] Transcribe Date/Time: May 28 2024 1:52P Dictated by : JASON EMERY MD This examination was interpreted and the report reviewed and electronically signed by: JASON EMERY MD on May 28 2024 1:53PM EST [facility] XR Chest PA and LateralOrder ed By: Ccf Provider on 05-28-2024 [facility] Basic metabolic 2000 panelon 05-27-2024 Anion gap [Moles/Vol] 10 mmol/L Normal 8-15 [facility] Comment on above: Order Comment: Speci men Type: BLOOD SPECIMENOrdering Facility: [facility] Address: [address] [id number] Performed By: #### 3 3762-6, 24364-9 ####[facility] LABCLIA [id number] [place] [address] [place] Calcium [Mass/Vol] 9.9 mg/dL Normal 8.5-10.2 [facility] Comment on above: Order Comment: Speci men Type: BLOOD SPECIMENOrdering Facility: [facility] Address: [address] [place] [address] Performed By: #### 3 3762-6, 64198-1 ####[facility] LABCLIA [id number] [place] [address] [place] Chloride [Moles/Vol] 107 mmol/L Normal 98-107 [facility] Comment on above: Order Comment: Speci men Type: BLOOD SPECIMENOrdering Facility: [facility] Address: [address] [place] [address] Performed By: #### 3 3762-6, 82978-6 ####[facility] LABCLIA [id number] [place] [address] [place] CO2 [Moles/Vol] 25 mmol/L Normal 22-30 [facility] Comment on above: Order Comment: Speci men Type: BLOOD SPECIMENOrdering Facility: [facility] Address: [address] [place] [address] Performed By: #### 3 3762-6, 14508-2 ####[facility] LABCLIA [id number] [place] [address] [place] Creatinine [Mass/Vol] 0.83 mg/dL Normal 0.58-0.96 [facility] Comment on above: Order Comment: Speci men Type: BLOOD SPECIMENOrdering Facility: [facility] Address: [address] [place] [address] Performed By: #### 3 3762-6, 15632-5 ####[facility] LABCLIA [id number] [place] [address] [place] [facility] Creatinine and Glomerular filtration rate.predicted panel (S/P/Bld) 68 mL/min/1.73m??? Normal >=60 [facility] Comment on above: Order Comment: Jacob chavez Type: BLOOD SPECIMENOrdering Facility: [facility] Address: [address] [place] [address] Result Comment: Deidra mated Glomerular Filtration Rate (eGFR) is calculated using the 2020 CKD-EPI creatinine equation. This equation utilizes serum creatinine, sex, and age as parameters. The creatinine assay has traceable calibration to isotope dilution-mass spectrometry. Refer to KDIGO guidelines for clinical interpretation. In patients with unstable renal function, e.g. those with acute kidney injury, the eGFR may not accurately reflect actual GFR. Performed By: #### 3 3762-6, 37163-9 ####[facility] LABIA [id number] [place] [address] [place] Glucose [Mass/Vol] 90 mg/dL Normal 74-99 [facility] Comment on above: Order Comment: Jacob chavez Type: BLOOD SPECIMENOrdering Facility: [facility] Address: [address] [place] [address] Result Comment: The [place] Diabetes Association (ADA) provides guidance for cutoff values for fasting glucose and random glucose. The ADA defines fasting as no caloric intake for at least 8 hours. Fasting plasma glucose results between 100 to 125 mg/dL indicate increased risk for diabetes (prediabetes).Fasting plasma glucose results greater than or equal to 126 mg/dL meet the criteria for diagnosis of diabetes. In the absence of unequivocal hyperglycemia, results should be confirmed by repeat testing. In a patient with classic symptoms of hyperglycemia or hyperglycemic crisis, random plasma glucose results greater than or equal to 200 mg/dL meet the criteria for diagnosis of diabetes.Reference: Standards of Medical Care in Diabetes 2016, [place] [employer] Association. Diabetes Care. 2016.39(Suppl 1). Performed By: #### 3 3762-6, 52427-7 ####[facility] LABIA [id number] [address] [id number] [place] Potassium [Moles/Vol] 4.3 mmol/L Normal 3.7-5.1 [facility] Comment on above: Order Comment: Speci men Type: BLOOD SPECIMENOrdering Facility: [facility] Address: [address] [place] [address] Performed By: #### 3 3762-6, 48180-1 ####[facility] LABCLIA [id number] [place] [address] [place] Sodium [Moles/Vol] 142 mmol/L Normal 136-144 [facility] Comment on above: Order Comment: Speci men Type: BLOOD SPECIMENOrdering Facility: [facility] Address: [address] [place] [address] Performed By: #### 3 3762-6, 90006-6 ####[facility] LABCLIA [id number] [place] [address] [place] Urea nitrogen [Mass/Vol] 22 mg/dL High 7-21 [facility] Comment on above: Order Comment: Speci men Type: BLOOD SPECIMENOrdering Facility: [facility] Address: [facility] [place] [address] Performed By: #### 3 3762-6, 72522-0 ####[facility] LABCLIA [id number] [place] [address] [place] CBC panel Auto (Bld)on 05-27 Erythrocyte distribution width (RBC) [Ratio] 14.4 % 11.5 - 15.0 % [facility] Hematocrit (Bld) [Volume fraction] 41.1 % 36.0 - 46.0 % [facility] Hemoglobin (Bld) [Mass/Vol] 12.6 g/dL 11.5 - 15.5 g/dL [facility] Interpretation and review of laboratory results Normal [facility] MCH (RBC) [Entitic mass] 29.6 pg 26.0 - 34.0 pg [facility] MCHC (RBC) [Mass/Vol] 30.7 g/dL 30.5 - 36.0 g/dL [facility] MCV (RBC) [Entitic vol] 96.7 fL 80.0 - 100.0 fL [facility] Nucleated RBC (Bld) [#/Vol] NINF [facility] Platelet mean volume (Bld) [Entitic vol] 10.6 fL 9.0 - 12.7 fL [facility] Platelets (Bld) [#/Vol] 244 10*3/uL [facility] RBC (Bld) [#/Vol] 4.25 10*6/uL 3.90 - 5.2 0 m/uL [facility] WBC (Bld) [#/Vol] 6.14 10*3/uL [facility] Erythrocyte distribution width (RBC) [Ratio] 14.4 % Normal 11.5-15.0 [facility] Comment on above: Order Comment: Speci men Type: BLOOD SPECIMENOrdering Facility: [facility] Address: [address] [place] [address] Performed By: #### 5 8410-2 ####[facility] LABCLIA [id number] [place] [address] [place] Hematocrit (Bld) [Volume fraction] 41.1 % Normal 36.0-46.0 [facility] Comment on above: Order Comment: Speci men Type: BLOOD SPECIMENOrdering Facility: [facility] Address: [address] [place] [address] Performed By: #### 5 8410-2 ####[facility] LABCLIA [id number] [place] [address] [place] Hemoglobin (Bld) [Mass/Vol] 12.6 g/dL Normal 11.5-15.5 [facility] Comment on above: Order Comment: Speci men Type: BLOOD SPECIMENOrdering Facility: [facility] Address: [address] [place] [address] Performed By: #### 5 8410-2 ####[facility] LABCLIA [id number] [place] [address] [place] MCH (RBC) [Entitic mass] 29.6 pg Normal 26.0-34.0 [facility] Comment on above: Order Comment: Speci men Type: BLOOD SPECIMENOrdering Facility: [facility] Address: [address] [place] [address] Performed By: #### 5 8410-2 ####[facility] LABIA [id number] [place] [address] [place] MCHC (RBC) [Mass/Vol] 30.7 g/dL Normal 30.5-36.0 [facility] Comment on above: Order Comment: Speci men Type: BLOOD SPECIMENOrdering Facility: [facility] Address: [address] [place] [address] Performed By: #### 5 8410-2 ####[facility] LABIA [id number] [place] [address] [place] MCV (RBC) [Entitic vol] 96.7 fL Normal 80.0-100.0 [facility] Comment on above: Order Comment: Speci men Type: BLOOD SPECIMENOrdering Facility: [facility] Address: [address] [place] [address] Performed By: #### 5 8410-2 ####[facility] LABIA [id number] [place] [address] [place] Nucleated RBC (Bld) [#/Vol] 10*3/uL Normal <0.01 [facility] Comment on above: Order Comment: Speci men Type: BLOOD SPECIMENOrdering Facility: [facility] Address: [address] [place] [address] Performed By: #### 5 8410-2 ####[facility] LABIA [id number] [place] [address] [place] Platelet mean volume (Bld) [Entitic vol] 10.6 fL Normal 9.0-12.7 [facility] Comment on above: Order Comment: Speci men Type: BLOOD SPECIMENOrdering Facility: [facility] Address: [address] [place] [address] Performed By: #### 5 8410-2 ####[facility] LABCLIA [id number] [place] [address] [place] Platelets (Bld) [#/Vol] 244 10*3/uL Normal 150-400 [facility] Comment on above: Order Comment: Speci men Type: BLOOD SPECIMENOrdering Facility: [facility] Address: [address] [place] [address] Performed By: #### 5 8410-2 ####[facility] LABIA [id number] [place] [address] [place] RBC (Bld) [#/Vol] 4.25 10*6/uL Normal 3.90-5.20 [facility] Comment on above: Order Comment: Speci men Type: BLOOD SPECIMENOrdering Facility: [facility] Address: [address] [place] [address] Performed By: #### 5 8410-2 ####[facility] LABIA [id number] [place] [address] [place] WBC (Bld) [#/Vol] 6.14 10*3/uL Normal 3.70-11.00 [facility] Comment on above: Order Comment: Speci men Type: BLOOD SPECIMENOrdering Facility: [facility] Address: [address] [place] [address] Performed By: #### 5 8410-2 ####[facility] LABIA [id number] [place] [address] [place] CNOVon 05-27-2024 CNOV Normal [facility] NT-proBNP SerPl-mCncon 05-27 Natriuretic peptide.B prohormone N-Terminal [Mass/Vol] 286 pg/mL Normal <450 [facility] Comment on above: Order Comment: Speci men Type: BLOOD SPECIMENOrdering Facility: [facility] Address: [address] [place] [address] Performed By: #### 3 3762-6, 49826-5 ####[facility] LABCLIA [id number] [facility] [id number] [id number] [place] XR CHEST 2V FRONTAL/LATon XR CHEST 2V FRONTAL/LAT Normal C [facility] XR Chest PA and Lateralon Radiology Study observation (narrative) [facility] CNTHERAPYon 05-26-2024 CNTHERAPY Normal [facility] CNPNon 05-25-2024 CNPN Normal [facility] CNTHERAPYon 05-20-2024 CNTHERAPY Normal [facility] CNOVon 05-16-2024 CNOV Normal [facility] CNPNon 05-16-2024 CNPN Normal [facility] CNOVon 05-13-2024 CNOV Normal [facility] CNPNon 05-13-2024 CNPN Normal [facility] ECG COMPLETEon 05-13-2024 ECG COMPLETE Normal [facility] CNPNon 05-12-2024 CNPN Normal [facility] CNTHERAPYon 05-12-2024 CNTHERAPY Normal [facility] CNTHERAPYon 05-05-2024 CNTHERAPY Normal [facility] POLYSOMNOGRAM (PSG)/HOME SLE EP APNEA TEST (HSAT)on 05-05-2024 POLYSOMNOGRAM (PSG)/HOME SLEEP APNEA TEST (HSAT) Normal [facility] [id number] 04-27-2024 [id number] Normal [facility] CNTHERAPYon 04-26-2024 CNTHERAPY Normal [facility] THERAPY NTon 04-26-2024 THERAPY NT Normal [facility] CNOVon 04-18-2024 CNOV Normal [facility] CNOVon 03-30-2024 CNOV Normal [facility] [id number] 01-27-2024 [id number] HNO ID: [id number] Author: JOSE DIAZ CCC-TERMITE CONTROL SERVICE REPRESENTATIVE Service: ? Author Type: Speech Language Pathologist Type: [id number] Filed: 01/27/2024 16:46 Note Text: [facility] Speech Therapy Plan of Care Certification Patient Name: Geoffrey Nassar : 1935 CCF #: [id number] Date: 01/27/2024 To: Ailyn Bonner, APR* From Therapist: Jose Diaz [facility]-TERMITE CONTROL SERVICE REPRESENTATIVE RE: Patient Certification/ Recertification Your review, approval and electronic signature are required in order to comply with Payor: MEDICARE / Plan: MEDICARE A AND B / Product Type: Medicare / regulations. The identified Speech Therapy PLAN OF CARE for the patient is as follows: Z87.820 Personal history of traumatic brain injury (primary encounter diagnosis) PLAN OF CARE: Impression: Functional communication without limitations in: Speech Communication deficits identified: Cognitive deficits RECOMMENDATION: TERMITE CONTROL SERVICE REPRESENTATIVE Recommendations: Outpatient Speech Therapy Results and Recommendations Discussed With: Patient Prognosis: Excellent Excellent: within-session changes at evaluation, good support system/ coping skills, current objective clinical presentation Goals for Episode of Care: created on 01/27/2024 through 02/26/24 COGNITIVE GOALS - Complete visual reasoning/organizatio n tasks with 90% accuracy given occasional assist. - Improve immediate and short term/prospective memory to 90% accuracy with use of compensatory strategies with occasional assist/cues. - Improve working memory to WFL during complex cognitive tasks with 90% using compensatory strategies in order to recall the steps taken during a cognitive process. - Improve word finding skills to 90% accuracy with use of compensatory strategies with occasional assist/cues All goals to target the patient's overall ability to facilitate functional cognitive linguistic skills. Planned Interventions, Frequency, and Duration: Planned Treatment Interventions: Cognitive-Linguistic Training (97452, 86252, 94212), Patient / Caregiver Education/ Training Current Frequency: 1x/week Duration: 4 weeks PLAN FOR NEXT VISIT: - memory strategies; wprd recall/word finding Patient demonstrates good understanding of plan of care and treatment. The above goals and plan of care were discussed and agreed upon by patient/family. For further details regarding this patient refer to the Speech Therapy electronically documented visit dated 01/27/2024. Provider Attestation I have reviewed the treatment plan for Geoffrey Nassar, CCF# [id number] for the period of 01/27/24 -- 02/26/24, established on 01/27/2024. Signature certifies the need for therapy services. [facility]PT/Speech Visit (SPEMML) GEOFFREY NASSAR ([id number]) 1935 F Date Time Provider Department 01/27/24 3:30 PM JOSE DIAZ Date Time Provider Department Center 01/27/2024 3:30 PM [id number] DIAZ [facility] Reason for Visit: Speech Evaluation [5717] Primary Visit Diagnosis:Personal history of traumatic brain injury [Z87.820] Allergies As of Date: 01/27/2024 Noted Allergy Reaction SHELLFISH CONTAINING PRODUCTS 11/27/2016 16 - Unknown PENICILLAMINE 11/27/2016 16 - Unknown BENADRYL (DIPHENHYDRAMINE HCL) 10/05/2017 2 - Rash CATS 12/19/2005 CIPRO (CIPROFLOXACIN) 03/17/2005 9 - Itching DUST 12/19/2005 KETAMINE 04/07/2019 16 - Unknown MOLD 08/06/2006 PENICILLINS 03/17/2005 2 - Rash SHELLFISH 03/17/2005 12 - Shortness of Breath SPIRIVA WITH HANDIHALER (TIOTROPI*04/13/2008 5 - Intolerance Comments: not help SULFA (SULFONAMIDE ANTIBIOTICS) 12/15/2011 8 - GI Upset SYMBICORT (BUDESONIDE-FORMOTERO L) 11/27/2009 5 - Intolerance Comments: tremor,shaky TETANUS TOXOID ADSORBED 10/14/2007 5 - Intolerance Comments: [facility] Date Reviewed: 01/21/2024 Reviewed by: Michelle Vazquez APRN.MICROBIOLOGICAL LABORATORY TECHNICIAN - Fully Assessed Prescriptions as of 01/27/2024 - LORazepam (ATIVAN) 2 mg tab Take 1 tablet by mouth daily at bedtime for 90 days. - meloxicam (MOBIC) 15 mg tablet Take 1 tablet by mouth once daily. - baclofen 5 mg tablet Take 1 tablet by mouth two times a day. - levothyroxine (SYNTHROID) 88 mcg tablet TAKE 1 TABLET DAILY EXCEPT DO NOT TAKE ON SUNDAYS. TAKE ON AN EMPTY STOMACH - pantoprazole DR (PROTONIX) 20 mg tablet Take 2 tablets by mouth once daily. - PARoxetine (PAXIL) 40 mg tablet Take 1 tablet by mouth once daily. - amLODIPine (NORVASC) 5 mg tablet Take 1 tablet by mouth once daily. - lisinopril (ZESTRIL) 40 mg tablet Take 1 tablet by mouth once daily. - lamoTRIgine (LAMICTAL) 25 mg tablet Take 1 tablet by mouth once daily. - aspirin, enteric coated (ASPIRIN, ENTERIC COATED) 81 mg EC tablet Take 1 tablet by mouth once daily. - acetaminophen (TYLENOL) 500 mg tablet Take 2 tablets by mouth every 8 hours as needed for pain. - vibegron (GEMTESA) 75 mg tablet Take 1 tablet by mouth once daily. Prescribed by Dr. Hansen - ergocalciferol 50,000 unit capsule (VITAMIN D2, DRISDOL) Take 1 capsule by mouth every 4 weeks. - brimonidine-timolol (COMBIGAN) 0.2-0.5 % ophthalmic solution Use 1 Drop in the left eye twice daily. - latanoprost (XALATAN) 0.005 % ophthalmic solution Use 1 Drop in both eyes daily at bedtime. - BREO ELLIPTA 100-25 mcg/dose inhaler - vit C/E/zinc ox/trevor/lut/zeax (ICAPS AREDS2 ORAL) - loratadine (CLARITIN REDITABS) 10 mg dissolvable tablet Take 1 tablet by mouth once daily as needed (allergies). - DULCOLAX, BISACODYL, ORAL Take 1 tablet by mouth as needed. - polyethylene glycol 3350 (MIRALAX, GLYCOLAX) 17 gram/dose powder Drink a mix of 1 scoop in 8oz of water/beverage once daily as needed for constipation. - cyanocobalamin (VITAMIN B-12) 1,000 mcg tab Take 1,000 mcg by mouth once daily. - albuterol HFA (VENTOLIN HFA) 90 mcg/actuation inhaler Inhale 2 Puffs as instructed every 4 hours as needed for Wheezing/Shortness of Breath. - MULTIVITAMIN TAB Take one(1) tablet daily. Letter Text Normal [facility] 01-21-2024 [facility] Office Visit (NEAGCLM) MADAYGEOFFREY LEA ([id number]) 1935 F Date Time Provider Department 01/21/24 2:00 PM MICHELLE VAZQUEZ During your visit today, we recorded the following information about you: Pulse Blood pressure Weight Height 59/minute 115/75 76.6 kg 1.575 m Michelle Vazquez APRN.CNP 01/21/2024 2:37 PM Signed NEUROSURGERY FOLLOW UP OFFICE NOTE Michelle Vazquez APRN.CNP Date of visit: January 21, 2024 Patient Name: Ms.Sally Barbie Nassar Date of : 1935 Current Age: [age] year old Sex: female MRN/E# [id number] Last Office Visit: 10/22/2023 CHIEF COMPLAINT: Patient presents with: Established Patient HPI: The patient presents for a follow up without new imaging for evaluation. This is an 88-year-old female with a PMHx of diverticulosis, HTN, PE, pacemaker, asthma, umbilical hernia, GERD, hypothyroidism, degenerative disc disease (lumbar) tubular adenoma of the colon who was seen for consult at [facility] on 10/03/2023 after transfer from an outside ED by Dr. Holder. Patient was seen after a fall in her driveway after tripping over a curb causing her to strike her head. She reported taking low-dose ASA daily. Upon further evaluation the patient reported that she had fallen 3 times since May 2023 and had been experiencing headaches and dizziness. She denied any LOC. Workup was completed and demonstrated multifocal traumatic subarachnoid hemorrhages. ASA was placed on hold and reversed with DDAVP, she was started on a short course of Keppra for seizure prophylaxis and monitored in the ICU. Repeat imaging remained stable and no neurosurgical intervention was indicated. Recommendation was to continue to hold ASA and follow-up in [address] She was last seen in the office on 10/22/23 and reported that she was doing well since hospital discharge. She denied headache, visual changes, speech deficits, seizure activity, motor or sensory deficits. Low-dose aspirin remained on hold. Neurologically she was intact on exam without focal deficit with a slight compensated gait. CT was reviewed and compared to previous scans. Imaging showed no evidence of the previously noted subarachnoid hemorrhage along the left parietal lobe and left parietal operculum. There was no evidence of acute hemorrhage noted. She was advised to continue to hold low-dose ASA which she was taking for a previous TIA for a total of 4 weeks post trauma. She was told she then may resume the ASA if medically necessary. Recommendation was to follow-up in about 2 and half to 3 months for a routine evaluation prompting her visit today. Since last visit she states she is overall doing well. She denies any new or concerning issues. She presents for evaluation and plan of care. SYMPTOMS: None PREVIOUS CONSERVATIVE TREATMENTS: Keppra -Short course PREVIOUS SURGERY: None SURGICAL RISK: Smoker: Former -quit 05/14/1965 Diabetic: No Anticoagulants / Antiplatelets: ASA Occupation: N/A PAIN EVALUATION No data found in the last 1 encounters. PAST MEDICAL HISTORY Diagnosis Date Bradycardia 01/18/2021 Bronchiectasis without complication (HCC) 11/27/2009 Dr. Jaswant Miller, pulmonary. 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 Diverticulosis of small intestine (without mention of hemorrhage) Enthesopathy of hip region 07/08/2011 Essential hypertension 05/25/2008 Extrinsic asthma 01/29/2006 Fall 10/03/2023 Family history of malignant neoplasm of gastrointestinal tract liver cancer Foraminal stenosis of cervical region 01/30/2012 Gait disturbance 01/29/2017 Gastroesophageal reflux disease with esophagitis 05/13/2013 HERNIA UMBILICAL 12/19/2005 Hypothyroidism 03/17/2005 Irritable bowel syndrome with both constipation and diarrhea 09/23/2016 Non-STEMI (non-ST elevated myocardial infarction) ([facility]) 11/19/2016 setting of acute bilateral pulmonary embolism. Oral murray 10/29/2020 Pacemaker 07/25/2021 Pulmonary embolism with acute cor pulmonale (HCC) 11/24/2016 She was initially thought to have a NSTEMI, but was found to be a PE with Right Strain and NOT a NSTEMI. Pulmonary nodule 01/08/2017 SAH (subarachnoid hemorrhage) ([facility]) 10/03/2023 Tubular adenoma of colon 12/29/2017 PAST SURGICAL HISTORY Procedure Laterality Date CHOLECYSTECTOMY 1998 COLONOSCOPY FLX DX W/COLLJ SPEC WHEN PFRMD 12/18/2005 COLONOSCOPY FLX DX W/COLLJ SPEC WHEN PFRMD 09/17/2011 COLONOSCOPY FLX DX W/COLLJ SPEC WHEN PFRMD 11/30/2017 Colonoscopy - adenomatous polyp-5 year follow-up EGD 05/29/2017 LASER IRIDOPLASTY OS (LEFT EYE) Left LASER IRIDOTOMY OD (RIGHT EYE) Right PACEMAKER INSERTSION 05/29/2021 dual lead PAST SURGICAL HISTORY OF 09/2007 jacinto eyelid removal dropping skin PAST SURGICAL HISTORY OF Bilater (more content not included)... Normal [facility] CNOVon 11-09-2023 CNOV Office Visit (NTBIBA ) GEOFFREY NASSAR ([id number]) 1935 F [place] Date Time Provider Department 11/09/23 2:00 PM TREMAINE LANDON NTBIBA During your visit today, we recorded the following information about you: Pulse Respiration Blood pressure Weight 71/minute 16/minute 148/84 78 kg Height 1.575 m Tremaine Landon MD 11/09/2023 4:51 PM Signed November 08, 2023 Reason for visit: Patient presents with: New Patient HISTORY OF PRESENT ILLNESS: This is an initial clinic visit for this 88 year old right-handed female for evaluation of their rehabilitation needs following acquired/traumatic brain injury. This patient is seen at the request of No referring provider defined for this encounter. The patient chart reviewed in [facility] and history obtained/confirmed with patient. Geoffrey Nassar has a past medical history of anxiety, depression, diverticulosis, HTN, PE, pacemaker, asthma, umbilical hernia, GERD, hypothyroidism, degenerative disc disease (lumbar) tubular adenoma of the colon, recurrent falls who sustained a fall on 10/02/2023. Mechanism of Injury: Fall Injury Date: 10/02/2023 LOC: No LOC Amnestic to Events: No Evaluated at: [facility] at ED/Admission: 15 Brought in by: Initially evaluated in [facility] ER and transferred to [facility] Imaging: CT of head - Yes, multifocal subarachnoid hemorrhages Other injuries: None Hospital Course -ASA on hold, reversed with DDAVP -1 week course of Keppra given for seizure prophylaxis -Non-surgical treatment recommended by NSGY, Monitored in ICU, repeat imaging stable -She had no swallowing difficulty, evaluated by TERMITE CONTROL SERVICE REPRESENTATIVE -OT and PT assessment done -She was discharged with outpatient OT and PT, recommended to hold off ASA Date of discharge: 10/05/2023 Discharged to: Home Updates since discharge:: -No ER visit or hospitalization -Followed up with PCP, per report they hold off therapies till completing all the follow ups -Followed up with NSGY 10/22/2023, no concerns on imaging -ASA resumed Overall she is improving since discharge. Her daughter stayed with her for 3 weeks. She took good breast for first week and then gradually increase her activities. She reports resolution of headache which is located on the left temporoparietal region. She has sinus headache which is unchanged from prior to injury. Her headache manageable with Tylenol. She reports some issue with her balance and feels like she goes towards her right side while walking. She denies any lightheadedness but notices some dizziness occasionally. 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 She uses cane while outdoors. She denies any difficulty with clearance of her foot. She had a fall back in May 2023 which led to bruising on her forehead. She denies any loss of consciousness, amnesia or altered consciousness after the fall.She denies any vertigo or spinning sensation. She takes baclofen 5 mg twice daily for back spasms. She experiences back spasm if she does not take the medication. She has glaucoma and macular degeneration but denies any change in her vision. She denies any issues with hearing or sensitivity to noise or tinnitus. She denies any trouble swallowing but notices some hydration and test with sinus problem. She reports increased forgetfulness and difficulty in word finding. She feels that this is happening gradually over the last couple of years and denies any worsening after recent 2 falls. This is not interfering in her routine. She mentions to be a late night sleeper and sleeps by 2 AM. She states that low mood or depression is the reason to sleep late. She follows a bedtime routine of reading book which helps her to sleep. She denies any difficulty or fatigue after getting up in the morning. But after doing multiple tasks she notices fatigue and increased back pain. She prefers to take a break between her tasks. Her PCP has managed her mental health medication and she is interested to follow-up with psychiatry to discuss dose adjustment/regulation . She continues to be continent for bowel and bladder function. She is taking Gemtesa for bladder overactivity and feels that it is working well. She uses MiraLAX as needed for bowel regulation which is helpful. He denies any skin breakdowns or wounds. Functionally she is independent in self-care activities. She was using cane outdoors even prior to fall. She usually does cooking, cleaning, laundry but she has assigned a tent finisher to help with cleaning. She drives without any issue. She has recently signed up to grocery delivery service. She is managing her own medications. She looks after her finances. She lives with her mother and also helps and if needed. She is planning to start working with physical and Occupational Therapy. Recent labs/Imaging related to complaint: CT Brain (more content not included)... Normal [facility] CNOV Office Visit (NTBIBA ) GEOFFREY NASSAR ([id number]) 1935 F [place] Date Time Provider Department 11/09/23 1:00 PM ARACELIS PORTILLO During your visit today, we recorded the following information about you: Aracelis Portillo, PhD 11/10/2023 2:32 PM Signed traumatic Aracelis Portillo, PhD 11/10/2023 2:32 PM Signed [facility] Department of Neurology Section of Neuropsychology Neuropsychological Evaluation Report PATIENT NAME: Geoffrey Nassar DATE OF : 1935 DATE OF SERVICE: 11/09/2023 REFERRAL SOURCE: Michelle Vazquez APRN, CNP Geoffrey is an 88 year old female who was referred for a neuropsychological evaluation to assess cognitive and emotional functions following a history of fall on 10/02/2023. The current evaluation consisted of a review of available medical records, interview with Geoffrey and administration of standardized neuropsychological tests. On 10/02/2023 Geoffrey reported that she had gone out to get her mail and reported that when returning to her home she bent down to waste picker a twig that had fallen. She shared she had her foot on the curb and stumbled, falling into the street. She denied any loss of consciousness but stated she was not able to get up. Several people driving by stopped and helped her up and into her home. She initially declined calling 911 or going to the hospital. Geoffrey stated that after thinking about it she did call 911 and paramedics came to the home to evaluate her. She declined transport at the time but later had her brother take her to the emergency department at [facility]. CT scan of the brain indicated a brain bleed and she was subsequently transferred to [facility] where she was admitted. Geoffrey stated that the bleed resolved without neurosurgical intervention and she was discharged home on 10/05/2023. Injury Description: Loss of Consciousness: none Post-traumatic amnesia: none [place] Coma Scale:15 Neuroimaging findings: CT scan of the brain indicated bilateral subarachnoid hemorrhages Residual physical symptoms: none COGNITIVE CONCERNS: Geoffrey denied any prior history of cognitive concerns. Subsequent to her injury she has not noted any changes in cognitive abilities and feels she is at her baseline. Activities of Daily Living: Hygiene: independent Road Supervisor Of Engines: independent - recently hired a tent finisher and uses food delivery services from [employer] Medications: independent Finances: independent Driving: independent MEDICAL HISTORY: See records for full review. Relevant diagnoses include history of prior falls. Geoffrey shared she had tripped over a concrete barrier in a parking lot last May and fell on her face. She denied diagnosis of concussion as a result of this event. She shared she has also experienced several other falls at home over the past year. Medical history is also notable for HTN, GERD, hypothyroidism, bradycardia with pacemaker placement, cholecystectomy and history of PEs. Geoffrey denied any history of head injury with loss of consciousness, stroke, or seizure. Review of select systems is notable for: Sensory difficulties: no concerns Motor Changes: balance concerns, uses a walker at home at night and cane in community Chronic pain: denied Sleep: reported sleeping too much. Will go to bed around 1:30 or 2:00 am and get up between 11-2 the following day. Shared difficult time getting up due to depression. Daytime fatigue: denied naps Substance use: denied Recent Neurological workup with Michelle Vazquez APRN, CNP on 10/22/2023 revealed: Neurological Exam: doing well, no concerns Brain MRI/EEG: repeat CT scan indicated no evidence of prior bleeds Medication List: Ativan 2 mg at hs, amlodipine 5 mg, baclofen 5 mg, Breo inhaler, albuterol inhaler, Vitamin B12, Vitamin D, Gemtesa 75 mg, lamotrigine 25 mg, levetiracetam 500 mg bid, levothyroxine 88 mcg, lisinopril 40 mg, loratadine 10 mg, pantoprazole 20 mg, paroxetine 40 mg Family neurological history: Geoffrey reported her parents are . She has three brothers and shared two are still living. Her brother Anthony has a history of CHF and atrial fibrillation. PSYCHIATRIC HISTORY: Geoffrey reported a history of depression with onset in adolescence. She shared that she has previously participated in counseling which focused on her divorce. She reported medications have been prescribed by primary care and she has never been seen by psychiatry. She presented an article on dysthymic disorder and stated she feels that she meets the diagnostic criteria. At the present time she reported that she takes the Ativan at night to help with sleep due to constant thoughts regarding current stresses and concerns. She delays getting up in the mornings as she does not want to deal with the day. Geoffrey denied auditory/visual hallucination (more content not included)... Normal [facility] CNOVon 10-22-2023 CNOV Office Visit (NEAGCLM) GEOFFREY NASSAR ([id number]) 1935 F [place] Date Time Provider Department 10/22/23 2:30 PM MICHELLE VAZQUEZ During your visit today, we recorded the following information about you: Pulse Respiration Blood pressure Weight 60/minute 16/minute 114/76 77.5 kg Height 1.626 m Michelle Vazquez APRN.CNP 10/22/2023 4:05 PM Signed NEUROSURGERY FOLLOW UP OFFICE NOTE Michelle Vazquez APRN.CNP Date of visit: October 22, 2023 Patient Name: Ms.Sally Barbie Nassar Date of : 1935 Current Age: [age] year old Sex: female MRN/E# [id number] Last Office Visit: Hospital follow-up CHIEF COMPLAINT: Patient presents with: Established Patient HPI: The patient presents for a hospital follow up with imaging (CT B) for evaluation. This is an 88-year-old female with a PMHx of diverticulosis, HTN, PE, pacemaker, asthma, umbilical hernia, GERD, hypothyroidism, degenerative disc disease (lumbar) tubular adenoma of the colon who was seen for consult at [facility] on 10/03/2023 after transfer from an outside ED by Dr. Holder. Patient was seen after a fall in her driveway after tripping over a curb causing her to strike her head. She reported taking low-dose ASA daily. Upon further evaluation the patient reported that she had fallen 3 times since May 2023 and has been experiencing headaches and dizziness. She denies any LOC. Workup was completed and demonstrated multifocal traumatic subarachnoid hemorrhages. ASA was placed on hold and reversed with DDAVP, she was started on a short course of Keppra for seizure prophylaxis and monitored in the ICU. Repeat imaging remained stable and no neurosurgical intervention was indicated. Recommendation was to continue to hold ASA and follow-up in [address] prompting her visit today. Since discharge she states she is overall doing well. She denies headache, visual changes, speech deficits, seizure activity, motor or sensory deficits. She presents for image review, evaluation and plan of care. SYMPTOMS: None PREVIOUS CONSERVATIVE TREATMENTS: Tylenol as needed PREVIOUS SURGERY: None SURGICAL RISK: Smoker: Former -quit 05/14/1965 Diabetic: No Anticoagulants / Antiplatelets: ASA -hold Occupation: N/A PAIN EVALUATION 10/21/2023 1143 Pain Level: 3 Pain Location: Head Description: Dull Duration Amount of Time: 20 Duration Units: Minutes Frequency: Intermittent Intervention/Comfort measure: Medication Comments: A dull ache at point of injury. Passes with Tylenol. Returns in about 6-7 hours. Uncomfortable with pillow. PAST MEDICAL HISTORY Diagnosis Date Bradycardia 01/18/2021 Bronchiectasis without complication (HCC) 11/27/2009 Dr. Jaswant Miller, pulmonary. 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 Diverticulosis of small intestine (without mention of hemorrhage) Enthesopathy of hip region 07/08/2011 Essential hypertension 05/25/2008 Extrinsic asthma 01/29/2006 Family history of malignant neoplasm of gastrointestinal tract liver cancer Foraminal stenosis of cervical region 01/30/2012 Gait disturbance 01/29/2017 Gastroesophageal reflux disease with esophagitis 05/13/2013 HERNIA UMBILICAL 12/19/2005 Hypothyroidism 03/17/2005 Irritable bowel syndrome with both constipation and diarrhea 09/23/2016 Oral murray 10/29/2020 Pacemaker 07/25/2021 Pulmonary embolism with acute cor pulmonale (HCC) 11/24/2016 She was initially thought to have a NSTEMI, but was found to be a PE with Right Strain and NOT a NSTEMI. Pulmonary nodule 01/08/2017 Tubular adenoma of colon 12/29/2017 PAST SURGICAL HISTORY Procedure Laterality Date CHOLECYSTECTOMY 1998 COLONOSCOPY FLX DX W/COLLJ SPEC WHEN PFRMD 12/18/2005 COLONOSCOPY FLX DX W/COLLJ SPEC WHEN PFRMD 09/17/2011 COLONOSCOPY FLX DX W/COLLJ SPEC WHEN PFRMD 11/30/2017 Colonoscopy - adenomatous polyp-5 year follow-up EGD 05/29/2017 LASER IRIDOPLASTY OS (LEFT EYE) Left LASER IRIDOTOMY OD (RIGHT EYE) Right PACEMAKER INSERTSION 05/29/2021 dual lead PAST SURGICAL HISTORY OF 09/2007 jacinto eyelid removal dropping skin PAST SURGICAL HISTORY OF Bilateral 11/24/2011 cataract removal 11/19/11, 11/24/11 SLING OPER STRES INCONTINENCE 2004 TONSILLECTOMY HX 195 VAG HYST 250 GM/< W/RMVL TUBEAND/OVARY 1996 uterine prolapse, hyst. bilateral oophorectomy VITRECTOMY MECHANICAL PARS PLANA Left FAMILY HISTORY Problem Relation Age of Onset Cancer Mother Arthritis Mother Kidney Disease Mother Cancer Father lung ALLERGIES Allergen Reactions Shellfish Containin* Unknown Penicillamine Unknown Benadryl [Diphenhyd* Rash Cats Cipro [Ciprofloxaci* Itching Dust Ketamine Unknown Mold Penicillins Rash Shellfish Shortness of Breath Spiriva With Handih* Intolerance not help (more content not included)... Normal [facility] CT Head WO contraston 2023 [facility] Basic metabolic 2000 panelon 10-05-2023 Anion gap [Moles/Vol] 8 mmol/L Low 9-18 [facility] Comment on above: Order Comment: Speci men Type: BLOOD SPECIMENOrdering Facility: [facility] Address: [address] [place] [address] Performed By: #### 2 4321-2 ####[facility] LABORATORYCLIA [id number] [place] [address] [place] Calcium [Mass/Vol] 9.1 mg/dL Normal 8.5-10.2 [facility] Comment on above: Order Comment: Speci men Type: BLOOD SPECIMENOrdering Facility: [facility] Address: [address] [place] [address] Performed By: #### 2 4321-2 ####[facility] LABORATORYCLIA [id number] [place] [address] [place] Chloride [Moles/Vol] 101 mmol/L Normal 97-105 [facility] Comment on above: Order Comment: Speci men Type: BLOOD SPECIMENOrdering Facility: [facility] Address: [address] [place] [address] Performed By: #### 2 4321-2 ####[facility] LABORATORYCLIA [id number] [address] STATES [facility] CO2 [Moles/Vol] 23 mmol/L Normal 22-30 [facility] Comment on above: Order Comment: Speci men Type: BLOOD SPECIMENOrdering Facility: [facility] Address: [address] [place] [address] Performed By: #### 2 4321-2 ####[facility] LABORATORYCLIA [id number] [address] [place] [facility] Creatinine [Mass/Vol] 0.67 mg/dL Normal 0.58-0.96 [facility] Comment on above: Order Comment: Speci men Type: BLOOD SPECIMENOrdering Facility: [facility] Address: [address] [place] [address] Performed By: #### 2 4321-2 ####[facility] LABORATORYCLIA [id number] [address] Creatinine and Glomerular filtration rate.predicted panel (S/P/Bld) 85 mL/min/1.73m??? Normal >=60 [facility] Comment on above: Order Comment: Speci men Type: BLOOD SPECIMENOrdering Facility: [facility] Address: [address] [place] [address] Result Comment: Deidra mated Glomerular Filtration Rate (eGFR) is calculated using the 2020 CKD-EPI creatinine equation. This equation utilizes serum creatinine, sex, and age as parameters. The creatinine assay has traceable calibration to isotope dilution-mass spectrometry. Refer to KDIGO guidelines for clinical interpretation. In patients with unstable renal function, e.g. those with acute kidney injury, the eGFR may not accurately reflect actual GFR. Performed By: #### 2 4321-2 ####[facility] LABORATORYCLIA [id number] [address] OF [facility] Glucose [Mass/Vol] 92 mg/dL Normal 74-99 [facility] Comment on above: Order Comment: Speci men Type: BLOOD SPECIMENOrdering Facility: [facility] Address: [address] [place] [address] Result Comment: The [place] Diabetes Association (ADA) provides guidance for cutoff values for fasting glucose and random glucose. The ADA defines fasting as no caloric intake for at least 8 hours. Fasting plasma glucose results between 100 to 125 mg/dL indicate increased risk for diabetes (prediabetes). Fasting plasma glucose results greater than or equal to 126 mg/dL meet the criteria for diagnosis of diabetes. In the absence of unequivocal hyperglycemia, results should be confirmed by repeat testing. In a patient with classic symptoms of hyperglycemia or hyperglycemic crisis, random plasma glucose results greater than or equal to 200 mg/dL meet the criteria for diagnosis of diabetes. Reference: Standards of Medical Care in Diabetes 2016, [place] Diabetes Association. Diabetes Care. 2016.39(Suppl 1). Performed By: #### 2 4321-2 ####[facility]ORATORYCLIA [id number] [place] [address] [place] Potassium [Moles/Vol] 4.6 mmol/L Normal 3.7-5.1 [facility] Comment on above: Order Comment: Jacob chavez Type: BLOOD SPECIMENOrdering Facility: [facility] Address: [address] [place] [address] Performed By: #### 2 4321-2 ####[facility]ATORYCLIA [id number] [place] [address] [place] Sodium [Moles/Vol] 132 mmol/L Low 136-144 [facility] Comment on above: Order Comment: Jacob chavez Type: BLOOD SPECIMENOrdering Facility: [facility] Address: [address] [place] [address] Performed By: #### 2 4321-2 ####[facility]ATORYCLIA [id number] [place] [address] [place] Urea nitrogen [Mass/Vol] 17 mg/dL Normal 7-21 [facility] Comment on above: Order Comment: aJcob chavez Type: BLOOD SPECIMENOrdering Facility: [facility] Address: [address] [place] [address] Performed By: #### 2 4321-2 ####[facility]ORATORYCLIA [id number] [place] [id number] [facility] [place] CASE MANAGEMon 10-05-2023 CASE MANAGEM HNO ID: [id number] Author: GRETEL CANNON LSW Service: ? Author Type: Package Lift Operator Type: Care Mgt Progress Note Filed: 10/05/2023 08:21 Note Text: CARE MANAGEMENT PROGRESS NOTE SERVICE DATE: 10/05/2023 SERVICE TIME: 8:20 AM LOS: 2 days Trauma Assessment- Reviewed chart. Pt's tox screen was negative. Trauma assessment not appropriate at this time. There are no substance abuse concerns at this time. Pt presents after a fall at home. See CM note for transitional care needs SIGNATURE: ANGELA Becerra PATIENT NAME: Geoffrey Nassar DATE: October 05, 2023 TIME: 8:20 AM PAGER/CONTACT #: [phone] Normal [facility] CBC panel Auto (Bld)on 10-05 Erythrocyte distribution width (RBC) [Ratio] 14.2 % Normal 11.5-15.0 [facility] Comment on above: Order Comment: Speci men Type: BLOOD SPECIMENOrdering Facility: [facility] Address: [address] [place] [address] Performed By: #### 5 8410-2 ####[facility]ORATORYCLIA [id number] [address] [place] [facility] Hematocrit (Bld) [Volume fraction] 38.2 % Normal 36.0-46.0 [facility] Comment on above: Order Comment: Speci men Type: BLOOD SPECIMENOrdering Facility: [facility] Address: [address] [place] [address] Performed By: #### 5 8410-2 ####[facility]ATORYCLIA [id number] [place] [id number] [place] Hemoglobin (Bld) [Mass/Vol] 11.9 g/dL Normal 11.5-15.5 [facility] Comment on above: Order Comment: Speci men Type: BLOOD SPECIMENOrdering Facility: [facility] Address: [address] [place] [address] Performed By: #### 5 8410-2 ####[facility]ORYCLIA [id number] [address] MCH (RBC) [Entitic mass] 29.5 pg Normal 26.0-34.0 [facility] Comment on above: Order Comment: Speci men Type: BLOOD SPECIMENOrdering Facility: [facility] Address: [address] [place] [address] Performed By: #### 5 8410-2 ####[facility]ATORYCLIA [id number] [address] MCHC (RBC) [Mass/Vol] 31.2 g/dL Normal 30.5-36.0 [facility] Comment on above: Order Comment: Speci men Type: BLOOD SPECIMENOrdering Facility: [facility] Address: [address] [place] [address] Performed By: #### 5 8410-2 ####[facility]ATORYCLIA [id number] [address] MCV (RBC) [Entitic vol] 94.8 fL Normal 80.0-100.0 [facility] Comment on above: Order Comment: Speci men Type: BLOOD SPECIMENOrdering Facility: [facility] Address: [address] [place] [address] Performed By: #### 5 8410-2 ####[facility]ORYCLIA [id number] [address] Nucleated RBC (Bld) [#/Vol] 10*3/uL Normal <0.01 [facility] Comment on above: Order Comment: Speci men Type: BLOOD SPECIMENOrdering Facility: [facility] Address: [address] [place] [address] Performed By: #### 5 8410-2 ####[facility]ORYCLIA [id number] [address] Platelet mean volume (Bld) [Entitic vol] 10.3 fL Normal 9.0-12.7 [facility] Comment on above: Order Comment: Speci men Type: BLOOD SPECIMENOrdering Facility: [facility] Address: [address] [place] [address] Performed By: #### 5 8410-2 ####[facility]ORYCLIA [id number] [address] OF [facility] Platelets (Bld) [#/Vol] 205 10*3/uL Normal 150-400 [facility] Comment on above: Order Comment: Speci men Type: BLOOD SPECIMENOrdering Facility: [facility] Address: [address] [place] [address] Performed By: #### 5 8410-2 ####[facility]ORYCLIA [id number] [address] RBC (Bld) [#/Vol] 4.03 10*6/uL Normal 3.90-5.20 [facility] Comment on above: Order Comment: Speci men Type: BLOOD SPECIMENOrdering Facility: [facility] Address: [address] [place] [address] Performed By: #### 5 8410-2 ####[facility]ORYCLIA [id number] [address] WBC (Bld) [#/Vol] 6.88 10*3/uL Normal 3.70-11.00 [facility] Comment on above: Order Comment: Speci men Type: BLOOD SPECIMENOrdering Facility: [facility] Address: [address] [place] [address] Performed By: #### 5 8410-2 ####[facility]ATORYCLIA [id number] [address] CNDSon 10-05-2023 CNDS HNO ID: [id number] Author: WEN GALICIA MD Service: General Surgery Author Type: Physician Type: Discharge Summary Filed: 10/06/2023 11:31 Note Text: DISCHARGE SUMMARY PATIENT NAME: Geoffrey Nassar Code Status: Not on file Highest Readmission Risk Score: 20 The 30 day readmissions risk score is derived from an internally validated risk model which evaluates patient level characteristics, utilization history, medication orders and lab results up until the day of discharge. Patients with a score of 40 or above are considered highest risk for readmission. Specific patient level drivers will be listed at the bottom of the summary. 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 Geoffrey Nassar presented to [facility] on 10/02/2023 as a transfer from [facility] for treatment of injuries sustained during a reported ground level fall. CT imaging revealed evidence of bilateral subarachnoid hemorrhages. Her aspirin was reversed with DDAVP and she was admitted to the ICU for close neurological monitoring. Neurosurgery was consulted and recommended non-surgical treatment of her traumatic brain injury. She was started on a 7-day course of Keppra for seizure prevention. Repeat CT imaging completed on 10/03/2023 remained stable. She remained neurologically intact. Pain was controlled with Tylenol and oxycodone. She tolerated a regular diet and was transferred to the regular nursing floor for continued care. Ms. Nassar was evaluated by physical and occupational therapy who recommended home at discharge. She was evaluated by speech therapy as well who also recommended home. She was discharged in stable condition on 10/05/2023. Ms. Drake was instructed to avoid her home aspirin and Mobic until cleared by her treating neurosurgeon. She would require 2-week follow-up with neurosurgery with repeat CT imaging of her brain at that time. It was also recommended that she follow-up with her primary care provider for further long-term medical management. OTHER PROBLEMS/DIAGNOSIS: Principal Problem: Trauma Active Problems: SAH (subarachnoid hemorrhage) (HCC) Fall Resolved Problems: * No resolved hospital problems. * OPERATIONS PERFORMED WHILE IN THE HOSPITAL: None IMPORTANT TEST/PROCEDURES: No procedures performed TEST RESULTS NOT AVAILABLE AT THIS TIME: No pending results Discharge Disposition Discharge Disposition: Home With Home Care Activity When You Leave the Hospital Do not bend over at the waist to lift heavy objects May bathe and shower No driving for: Until cleared by your treating neurosurgeon. No prolonged bedrest, longer than 8 hours in a 24 hour period No walking restrictions Resume pre-hospital activity Diet Instructions Avoid Alcohol Resume your pre-hospital diet For Pain When You Leave the Hospital If you become constipated, you may use any pwlz-qka-sgjyrwb treatment such as Milk of Magnesia, Sennakot, Prune Juice, Suppositories, etc. in addition to the stool softener/fiber supplement No alcohol or driving while on pain medication Other: DO NOT resume your Mobic. DO NOT take NSAIDs such as ibuprofen, Advil, Motrin, Aleve or naproxen as these medications may increase your risk of bleeding. DO NOT resume your aspirin. Use acetaminophen (Tylenol) as recommended on the bottle Use the dispensed medication (see prescription) Call Your Doctor If You have a severe headache You have lightheadedness, fainting, or confusion You have pain and swelling in your legs, especially if it is only on one side and not the other You have persistent nausea/vomiting over 24 hours You have swollen glands or cold and clammy skin Your temperature is greater than 101F Follow Up Appointments Follow-Up Appointment You will need to follow-up with neurosurgery with repeat CT scan of your brain in 2 weeks. An appointment has been scheduled for you. DO NOT resume your home aspirin or Mobic until cleared by your treating neurosurgeon. When: In 2 weeks Patient/Parents to call for appointment?: Yes Maxime Umanzor MD [phone] [address] [facility] [address] PCP Requested Referral Follow-Up Appointment It is recommended that you follow-up with your primary care provider after hospital discharge. When: In 2 weeks Patient/Parents to call for appointment?: Yes Ken Contreras MD [phone] [address] [facility] [address] PCP Requested Referral Addition (more content not included)... Normal [facility] ALLIED HEALTHon 10-04-2023 ALLIED HEALTH HNO ID: [id number] Author: LANDSBERGER, GRACE, RT(R) Service: ? Author Type: Technologist Type: Allied Health Filed: 10/04/2023 05:32 Note Text: Radiology Service Progress Note PATIENT NAME: Geoffrey Nassar DATE OF SERVICE: October 04, 2023 TIME: 5:31 AM PATIENT IDENTITY VERIFICATION COMPLETED USING TWO (2) IDENTIFIERS: Name and Date of confirmed by identification band. FALL SCREENING: Has the patient had 2 falls in the last year or 1 fall with injury or currently using an Ambulatory Assistive Device (Walker, Cane, Wheelchair, Crutches, etc.)? Inpatient: Screened on floor PATIENT GENDER DATA: Female. status: : No status: NO. PATIENT RELEVANT IMPLANT DATA REVIEWED: Not Applicable PATIENT PRESENTS WITH AN IMPLANTABLE OR ATTACHED CRUMB PACKER: No RADIOLOGY DEPARTMENT: General X-ray: Exam(s) Completed: Chest X-Ray PERIPHERAL IV DATA: Not applicable SIGNED BY: RT Timo(R) October 04, 2023 5:31 AM Normal [facility] Basic metabolic 2000 panelon 10-04-2023 Anion gap [Moles/Vol] 8 mmol/L Low 9-18 [facility] Comment on above: Order Comment: Speci men Type: BLOOD SPECIMENOrdering Facility: [facility] Address: [address] [place] [address] Performed By: #### 2 4321-2 ####[facility]ORYCLIA [id number] [place] [address] [place] Calcium [Mass/Vol] 9.2 mg/dL Normal 8.5-10.2 [facility] Comment on above: Order Comment: Speci men Type: BLOOD SPECIMENOrdering Facility: [facility] Address: [address] [place] [address] Performed By: #### 2 4321-2 ####[facility]ORATORYCLIA [id number] [place] [address] [place] Chloride [Moles/Vol] 105 mmol/L Normal 97-105 [facility] Comment on above: Order Comment: Speci men Type: BLOOD SPECIMENOrdering Facility: [facility] Address: [address] [place] [address] Performed By: #### 2 4321-2 ####[facility]ORYCLIA [id number] [address] [place] [facility] CO2 [Moles/Vol] 25 mmol/L Normal 22-30 [facility] Comment on above: Order Comment: Speci men Type: BLOOD SPECIMENOrdering Facility: [facility] Address: [address] [place] [address] Performed By: #### 2 4321-2 ####[facility]ORYCLIA [id number] [address] Creatinine [Mass/Vol] 0.83 mg/dL Normal 0.58-0.96 [facility] Comment on above: Order Comment: Speci men Type: BLOOD SPECIMENOrdering Facility: [facility] Address: [address] [place] [address] Performed By: #### 2 4321-2 ####[facility] [id number] [address] Creatinine and Glomerular filtration rate.predicted panel (S/P/Bld) 69 mL/min/1.73m??? Normal >=60 [facility] Comment on above: Order Comment: Speci men Type: BLOOD SPECIMENOrdering Facility: [facility] Address: [address] [place] [address] Result Comment: Deidra mated Glomerular Filtration Rate (eGFR) is calculated using the 2020 CKD-EPI creatinine equation. This equation utilizes serum creatinine, sex, and age as parameters. The creatinine assay has traceable calibration to isotope dilution-mass spectrometry. Refer to KDIGO guidelines for clinical interpretation. In patients with unstable renal function, e.g. those with acute kidney injury, the eGFR may not accurately reflect actual GFR. Performed By: #### 2 4321-2 ####[facility]ORYCLIA [id number] [address] Glucose [Mass/Vol] 100 mg/dL High 74-99 [facility] Comment on above: Order Comment: Speci men Type: BLOOD SPECIMENOrdering Facility: [facility] Address: [address] [place] [address] Result Comment: The [place] Diabetes Association (ADA) provides guidance for cutoff values for fasting glucose and random glucose. The ADA defines fasting as no caloric intake for at least 8 hours. Fasting plasma glucose results between 100 to 125 mg/dL indicate increased risk for diabetes (prediabetes). Fasting plasma glucose results greater than or equal to 126 mg/dL meet the criteria for diagnosis of diabetes. In the absence of unequivocal hyperglycemia, results should be confirmed by repeat testing. In a patient with classic symptoms of hyperglycemia or hyperglycemic crisis, random plasma glucose results greater than or equal to 200 mg/dL meet the criteria for diagnosis of diabetes. Reference: Standards of Medical Care in Diabetes 2016, [place] Diabetes Association. Diabetes Care. 2016.39(Suppl 1). Performed By: #### 2 4321-2 ####[facility]ORYCLIA [id number] [place] [address] [place] Potassium [Moles/Vol] 4.1 mmol/L Normal 3.7-5.1 [facility] Comment on above: Order Comment: Speci men Type: BLOOD SPECIMENOrdering Facility: [facility] Address: [address] [place] [address] Performed By: #### 2 4321-2 ####[facility]ATORYCLIA [id number] [address] [place] Sodium [Moles/Vol] 138 mmol/L Normal 136-144 [facility] Comment on above: Order Comment: Speci men Type: BLOOD SPECIMENOrdering Facility: [facility] Address: [address] [place] [address] Performed By: #### 2 4321-2 ####[facility]ATORYCLIA [id number] [place] [address] [place] Urea nitrogen [Mass/Vol] 20 mg/dL Normal 7-21 [facility] Comment on above: Order Comment: Speci men Type: BLOOD SPECIMENOrdering Facility: [facility] Address: [address] [place] [address] Performed By: #### 2 4321-2 ####[facility]ORYCLIA [id number] [address] CBC panel Auto (Bld)on 10-04 Erythrocyte distribution width (RBC) [Ratio] 14.8 % Normal 11.5-15.0 [facility] Comment on above: Order Comment: Speci men Type: BLOOD SPECIMENOrdering Facility: [facility] Address: [address] [place] [address] Performed By: #### 5 8410-2 ####[facility]ORYCLIA [id number] [address] Hematocrit (Bld) [Volume fraction] 35.2 % Low 36.0-46.0 [facility] Comment on above: Order Comment: Speci men Type: BLOOD SPECIMENOrdering Facility: [facility] Address: [address] [place] [address] Performed By: #### 5 8410-2 ####[facility]ORYCLIA [id number] [address] Hemoglobin (Bld) [Mass/Vol] 11.2 g/dL Low 11.5-15.5 [facility] Comment on above: Order Comment: Speci men Type: BLOOD SPECIMENOrdering Facility: [facility] Address: [address] [place] [address] Performed By: #### 5 8410-2 ####[facility]ORYCLIA [id number] [address] MCH (RBC) [Entitic mass] 29.7 pg Normal 26.0-34.0 [facility] Comment on above: Order Comment: Speci men Type: BLOOD SPECIMENOrdering Facility: [facility] Address: [address] [place] [address] Performed By: #### 5 8410-2 ####[facility]ORYCLIA [id number] [address] MCHC (RBC) [Mass/Vol] 31.8 g/dL Normal 30.5-36.0 [facility] Comment on above: Order Comment: Speci men Type: BLOOD SPECIMENOrdering Facility: [facility] Address: [address] [place] [address] Performed By: #### 5 8410-2 ####[facility]ORYCLIA [id number] [address] [place] MCV (RBC) [Entitic vol] 93.4 fL Normal 80.0-100.0 [facility] Comment on above: Order Comment: Speci men Type: BLOOD SPECIMENOrdering Facility: [facility] Address: [address] [place] [address] Performed By: #### 5 8410-2 ####[facility]ORYCLIA [id number] [address] OF [place] Nucleated RBC (Bld) [#/Vol] 10*3/uL Normal <0.01 [facility] Comment on above: Order Comment: Speci men Type: BLOOD SPECIMENOrdering Facility: [facility] Address: [address] [place] [address] Performed By: #### 5 8410-2 ####[facility]ORYCLIA [id number] [address] OF [facility] Platelet mean volume (Bld) [Entitic vol] 10.2 fL Normal 9.0-12.7 [facility] Comment on above: Order Comment: Speci men Type: BLOOD SPECIMENOrdering Facility: [facility] Address: [address] [place] [address] Performed By: #### 5 8410-2 ####[facility]ORYCLIA [id number] [address] OF [place] Platelets (Bld) [#/Vol] 206 10*3/uL Normal 150-400 [facility] Comment on above: Order Comment: Speci men Type: BLOOD SPECIMENOrdering Facility: [facility] Address: [address] [place] [address] Performed By: #### 5 8410-2 ####[facility]ORYCLIA [id number] [address] [place] RBC (Bld) [#/Vol] 3.77 10*6/uL Low 3.90-5.20 [facility] Comment on above: Order Comment: Speci men Type: BLOOD SPECIMENOrdering Facility: [facility] Address: [address] [place] [address] Performed By: #### 5 8410-2 ####[facility]ORYCLIA [id number] [address] OF [facility] WBC (Bld) [#/Vol] 9.00 10*3/uL Normal 3.70-11.00 [facility] Comment on above: Order Comment: Speci men Type: BLOOD SPECIMENOrdering Facility: [facility] Address: [address] [place] [address] Performed By: #### 5 8410-2 ####[facility]ORYCLIA [id number] [place] [id number] [facility] NTon 10-04-2023 THERAPY NT HNO ID: [id number] Author: JENNIFER PELLETIER CCC-TERMITE CONTROL SERVICE REPRESENTATIVE Service: Speech/Swallow Author Type: Speech Language Pathologist Type: Therapy (PT/OT/Speech/Resp) Filed: 10/04/2023 11:13 Note Text: Speech Therapy Speech Evaluation SERVICE DATE: 10/04/2023 SERVICE TIME: 1055 to 1110 ROOM: [place] [address] IMPRESSION: Functional communication without limitations in: Speech, Language, Cognition Recommended Discharge Disposition: No further skilled speech therapy services anticipated Current Hospital Course: Admitted post fall. 10/03 CT Brain: bilateral supratentorial SAH, ? punctate focus parenchymal hemorrhage right temporal lobe Rehabilitation Precautions: Cognitive Linguistics Deficits Reason for Speech Therapy Consult: SAH Relevant Past Medical History: GERD Response to Therapy Interventions: Good Participation in activities Subjective: Alert, up in chair and agreeable to evaluation Current Status Oral Hygiene: Clear, moist oral cavity Dentition: Retains Natural Dentition Current Feeding Method: Oral Current Diet Textures: Regular Consistency, Thin Liquids IDDSI Level 0 Current Level Of Communication: Verbal Current Management Of Secretions: Able to self-manage Oral Motor Exam: Within Functional Limits Speech/Cognition/Lang uage Speech Production: Within Functional Limits Expressive and Receptive Language: Within Functional Limits Cognition Cognitive Status: Within Functional Limits For Current Session The Cognitive Log (Cog-Log) is designed to be a quick quantitative measure of cognition status for use at the bedside with rehabilitation inpatients. It is intended for individuals who have achieved consistent accurate orientation, such as measured by the Orientation Log (O-Log). The Cog-Log can be used to document cognitive progress on a daily basis. All items are scored from 0 to 3 for a total possible score of 30. 3 = correct spontaneous response 2 = correct upon logical cueing (e.g., That was yesterday, so today must be...) 1 = correct upon multiple choice or phonemic cueing 0 = incorrect despite cueing, inappropriate response, or unable to respond Stimulus Response/Score Date 11/07 Time 11/07 Name of Hospital 11/07 Repeat Address 11/07 20-1 11/07 Months Reversed 10/10 30 Seconds 11/07 [facility] 11/07 Go/No-Go 11/07 Address Recall 10/10 Total Patient /Caregiver Goals: Go Home PLAN: ST Frequency: Discontinue Therapy Services Reasons Inpatient Therapy Services Discontinued: No skilled needs Plan of Care Developed with: Patient TREATMENT INTERVENTIONS: Therapy Diagnosis: No Skilled Need Interventions Provided: Speech Language Eval (18410) $ Speech Language Eval (10173) Billed Units: 1 unit The following therapeutic skills were used:: Discharge planning, Education on role of discipline / importance of activity Skilled Treatment Time (minutes): 15 Home Environment Prior Functional Level: Within Functional Limits Patient Lives With: Family (brother) Prior Swallowing Function/Diet Textures: Regular Consistency, Thin Liquids IDDSI Level 0 Please see discipline specific clinical documentation flowsheet for complete details for this therapy evaluation/treatment. SIGNATURE: Jennifer Pelletier CCC-TERMITE CONTROL SERVICE REPRESENTATIVE PATIENT NAME: Geoffrey Nassar DATE: October 04, 2023 TIME: 11:12 AM Normal [facility] THERAPY NT HNO ID: [id number] Author: MAC CONNOLLY OTR/[place] Service: Occupational Therapy Author Type: Occupational Therapist Type: Therapy (PT/OT/Speech/Resp) Filed: 10/04/2023 11:04 Note Text: Occupational Therapy Evaluation Summary SERVICE DATE: 10/04/2023 SERVICE TIME: 0950 to 1037 ROOM: [place] [address] OT 6 Clicks Score: 16 DISCHARGE RECOMMENDATIONS Outpatient Occupational Therapy Recommended Discharge Disposition Comments: Pt would benefit from follow up with outpatient OT services to address cognitive impairment, maximize strength and safety awareness related to ADLs and mobility, and for education on equipment to maximize functional skills. Pt lives with brother who is unwell and unable to provide assist. Her dtr will stay with her when she returns from the hospital. Anticipated Discharge Needs: Physical Assist at Home, Supervision at Home Physical Assist at Home for: Cleaning, Laundry, Meals, Medication Management, Stairs, Safety, Self Care, Shopping, Transportation Supervision at Home due to: Impaired cognition Recommended Discharge Equipment: Shower Chair, Assemblyman Or Woman, Wheeled Walker ASSESSMENT Response to Therapy Interventions: Good Participation in Activities, Low Activity Tolerance Assisted pt to sit EOB and mobilize to bathroom using WW to attempt toileting after removal of catheter, pt did not void. Pt benefited from min A during transfers to advance into standing due to weakness and min A to maintain balance while walking with ww. Facilitated cognitive assessment (MoCA), results indicating clinically significant cognitive impairment (score of 16/30, score above 26 is a normal score) and provided education functional outcomes and supports related to cognition after head injury. Assisted to set up pt in chair with pillow supports, pt reports decreased back pain out of bed > in bed. PRECAUTIONS Bed/Chair Alarm, Lines/Tubes/Drains CURRENT HOSPITAL COURSE fall in driveway when picking up/throwing a twig; found to have Multiple bilateral parietal and frontoparietal cortical SAH, small focus within right temporal lobe. SAH stable Relevant Past Medical History: depression, OA, anxiety, bilat glaucoma, CKD HOME LIVING Patient Lives With: Family (older brother who was recently diagnosed with afib) Assistance Available: Part-Time Entry To Home: Stairs Number Of Stairs Into Home: 2 Tub/Shower Type: walk in shower Equipment Owned: Cane, Rollator PRIOR FUNCTIONAL LEVEL Within Functional Limits normally indep; pt and brother usually share tasks but since brother has been ill she has done more. No other social support in the area, dtr lives out of state Baseline Cognition: Oriented to self, Oriented to place, Oriented to time, Oriented to situation SUBJECTIVE Pt pleasant and motivated to ambulate to BR COGNITION Responsiveness: Alert, Awake Follows Commands: 2-step Commands Executive Function Deficits: Problem Solving, Safety Awareness Confusion Assessment Method (CAM - ICU Score): Negative (10/03/23) Facilitated completion of the Edwar Cognitive Assessment (MOCA), which is a rapid screening instrument for mild cognitive dysfunction. Results are as follows: Version 8.1 Total Score: 16/30 Visuospatial/Executiv e Alternating [place] Makin Visuoconstructional Skills (Shape): 0 Visuoconstructional Skills (Clock): 3 Visuospatial/Executiv e Score: 4/5 Naming The patient was able to name: Naming Score 2 /3 Memory Trials Memory Trial (1): The patient was correctly able to register 5/5 Memory Trial (2): The patient was correctly able to register 5/5 Attention Forward Digit Span: 1 Backward Digit Span: 1 Vigilance: 1 Attention- Serial 7's: 0 Attention Score: 3/6 Language Sentence Repetition (1): 0 Sentence Repetition (2): 0 Verbal Fluency: 1 Language Score: 1/3 Abstraction Abstraction (1): 0 Abstraction (2): 0 Abstraction Score: 0/2 Delayed Recall Word 1: 0 Word 2: 1 Word 3: 0 Word 4: 0 Word 5: 0 Delayed Recall Score: 1/5 Orientation The patient was able to answer correctly: exact date, month, year, exact place, city. Orientation Score 6 /6 Points For Educational Level: 0 MoCA Total Score (out of 30) 16 /30 Patient demonstrates mod in visuospatial / executive functioning, max deficits in memory, mod deficits in attention and concentration, mod deficits in language, max deficits in abstraction/conceptua l thinking, and min deficits in orientation. The total possible score is 30 points; a score of 26 or above is considered normal (no cognitive impairment). The MoCA was administered by an Officially Certified Occupational Therapist. THERAPY DIAGNOSIS Reduced mobility-other, Decreased activities of daily living (ADL), Muscle Weakness (generalized), Unsteadiness on feet, Signs and Symptoms Involving Cognitive Functions and Awareness TREATMENT INTERVENTIONS Evaluation, Self Half-Way Management (9 (more content not included)... Normal [facility] XR CHEST 1V FRONTALon 2023 XR CHEST 1V FRONTAL * * *Final Report* * * DATE OF EXAM: Oct 04 2023 5:30AM AKX [id number] - XR CHEST 1V FRONTAL / PROCEDURE REASON: Shortness of breath * * * * Physician Interpretation * * * * EXAMINATION: CHEST RADIOGRAPH (SINGLE VIEW AP OR PA) CLINICAL HISTORY: Shortness of breath MQ: XC1_5 Comparison: Same day CT chest 10/03/2023. RESULT: Lines, tubes, and devices: Stable dual-lead left-sided cardiac pacemaker. Lungs and pleura: No consolidation. No pleural effusion or pneumothorax. Mild patchy opacity in the right lower lung. Cardiomediastinal silhouette: Normal cardiomediastinal silhouette. Other: No acute osseous abnormality. IMPRESSION: Mild patchy opacity right lower lung compatible with known bronchiectasis, mucous plugging, and tree-in-bud opacities. Leak Patcher: PSCB Transcribe Date/Time: Oct 04 2023 5:31A Dictated by : GABRIELE VIGIL MD This examination was interpreted and the report reviewed and electronically signed by: GABRIELE VIGIL MD on Oct 04 2023 5:33AM EST [id number] Normal [facility] 25(OH)D3 SerPl-mCncon 2023 25-hydroxyvitamin D3 [Mass/Vol] 58.6 ng/mL Normal >=30.0 [facility] Comment on above: Order Comment: Speci men Type: BLOOD SPECIMENOrdering Facility: [facility] Address: [address] [place] [address] Result Comment: Clas sification of 25 [place] Vitamin D status: Deficiency: <= 20.0 ng/ml. Insufficiency: 21.0-29.0 ng/ml. Sufficiency: >= 30.0 ng/ml. Performed By: #### 1 989-3 ####[facility] [facility]IA [id number] [place] [address] [place] Basic metabolic 2000 panelon 10-03-2023 Anion gap [Moles/Vol] 7 mmol/L Low 9-18 [facility] Comment on above: Order Comment: Jacob chavez Type: BLOOD SPECIMENOrdering Facility: [facility] Address: [address] [place] [address] Performed By: #### 1 9123-9, 2777-1, 32144-7 ####[facility]ORYCLIA [id number] [place] [address] [place] Calcium [Mass/Vol] 8.6 mg/dL Normal 8.5-10.2 [facility] Comment on above: Order Comment: Speci men Type: BLOOD SPECIMENOrdering Facility: [facility] Address: [address] [place] [address] Performed By: #### 1 9123-9, 2777, 77968-3 ####[facility]ORYCLIA [id number] [place] [address] [place] Chloride [Moles/Vol] 112 mmol/L High 97-105 [facility] Comment on above: Order Comment: Speci men Type: BLOOD SPECIMENOrdering Facility: [facility] Address: [address] [place] [address] Performed By: #### 1 9123-9, 27703-07, 30815-3 ####[facility]ORYCLIA [id number] [address] [place] CO2 [Moles/Vol] 25 mmol/L Normal 22-30 [facility] Comment on above: Order Comment: Speci men Type: BLOOD SPECIMENOrdering Facility: [facility] Address: [address] [place] [address] Performed By: #### 1 9123-9, 27703-07, ####[facility]ATORYCLIA [id number] [address] STATES OF [facility] Creatinine [Mass/Vol] 0.71 mg/dL Normal 0.58-0.96 [facility] Comment on above: Order Comment: Speci men Type: BLOOD SPECIMENOrdering Facility: [facility] Address: [address] [place] [address] Performed By: #### 1 9123-9, 27703-07, 95697-6 ####[facility]ORYCLIA [id number] [address] Creatinine and Glomerular filtration rate.predicted panel (S/P/Bld) 83 mL/min/1.73m??? Normal >=60 [facility] Comment on above: Order Comment: Speci men Type: BLOOD SPECIMENOrdering Facility: [facility] Address: [address] [place] [address] Result Comment: Deidra mated Glomerular Filtration Rate (eGFR) is calculated using the 2020 CKD-EPI creatinine equation. This equation utilizes serum creatinine, sex, and age as parameters. The creatinine assay has traceable calibration to isotope dilution-mass spectrometry. Refer to KDIGO guidelines for clinical interpretation. In patients with unstable renal function, e.g. those with acute kidney injury, the eGFR may not accurately reflect actual GFR. Performed By: #### 1 9123-9, 2777-, 24420-7 ####[facility]ORYCLIA [id number] [place] [address] [place] Glucose [Mass/Vol] 79 mg/dL Normal 74-99 [facility] Comment on above: Order Comment: Jacob chavez Type: BLOOD SPECIMENOrdering Facility: [facility] Address: [address] [place] [address] Result Comment: The [place] Diabetes [employer] (ADA) provides guidance for cutoff values for fasting glucose and random glucose. The ADA defines fasting as no caloric intake for at least 8 hours. Fasting plasma glucose results between 100 to 125 mg/dL indicate increased risk for diabetes (prediabetes). Fasting plasma glucose results greater than or equal to 126 mg/dL meet the criteria for diagnosis of diabetes. In the absence of unequivocal hyperglycemia, results should be confirmed by repeat testing. In a patient with classic symptoms of hyperglycemia or hyperglycemic crisis, random plasma glucose results greater than or equal to 200 mg/dL meet the criteria for diagnosis of diabetes. Reference: Standards of Medical Care in Diabetes 2016, [place] [employer] Association. Diabetes Care. 2016.39(Suppl 1). Performed By: #### 1 9123-9, 2777-, 67962-1 ####[facility]ORYCLIA [id number] [place] [address] [place] Potassium [Moles/Vol] 4.0 mmol/L Normal 3.7-5.1 [facility] Comment on above: Order Comment: Jacob chavez Type: BLOOD SPECIMENOrdering Facility: [facility] Address: [address] [place] [address] Performed By: #### 1 9123-9, 2777-, 11927-5 ####[facility]ATORYCLIA [id number] [place] [address] [place] [facility] Sodium [Moles/Vol] 144 mmol/L Normal 136-144 [facility] Comment on above: Order Comment: Speci men Type: BLOOD SPECIMENOrdering Facility: [facility] Address: [address] [place] [address] Performed By: #### 1 9123-9, 2777, 37429-6 ####[facility]ORYCLIA [id number] [address] [place] Urea nitrogen [Mass/Vol] 18 mg/dL Normal 7-21 [facility] Comment on above: Order Comment: Speci men Type: BLOOD SPECIMENOrdering Facility: [facility] Address: [address] [place] [address] Performed By: #### 1 9123-9, 2777, 72443-3 ####[facility]ORYCLIA [id number] [address] [place] CBC panel Auto (Bld)on 10-03 Erythrocyte distribution width (RBC) [Ratio] 14.3 % Normal 11.5-15.0 [facility] Comment on above: Order Comment: Speci men Type: BLOOD SPECIMENOrdering Facility: [facility] Address: [address] [place] [address] Performed By: #### 5 8410-2 ####[facility]ORYCLIA [id number] [address] STATES OF [facility] Hematocrit (Bld) [Volume fraction] 42.0 % Normal 36.0-46.0 [facility] Comment on above: Order Comment: Speci men Type: BLOOD SPECIMENOrdering Facility: [facility] Address: [address] [place] [address] Performed By: #### 5 8410-2 ####[facility]ORYCLIA [id number] [address] [place] Hemoglobin (Bld) [Mass/Vol] 13.5 g/dL Normal 11.5-15.5 [facility] Comment on above: Order Comment: Speci men Type: BLOOD SPECIMENOrdering Facility: [facility] Address: [address] [place] [address] Performed By: #### 5 8410-2 ####[facility]ORYCLIA [id number] [address] STATES OF [facility] MCH (RBC) [Entitic mass] 30.3 pg Normal 26.0-34.0 [facility] Comment on above: Order Comment: Speci men Type: BLOOD SPECIMENOrdering Facility: [facility] Address: [address] [place] [address] Performed By: #### 5 8410-2 ####[facility]ORYCLIA [id number] [address] MCHC (RBC) [Mass/Vol] 32.1 g/dL Normal 30.5-36.0 [facility] Comment on above: Order Comment: Speci men Type: BLOOD SPECIMENOrdering Facility: [facility] Address: [address] [place] [address] Performed By: #### 5 8410-2 ####[facility]ORYCLIA [id number] [address] STATES [facility] MCV (RBC) [Entitic vol] 94.2 fL Normal 80.0-100.0 [facility] Comment on above: Order Comment: Speci men Type: BLOOD SPECIMENOrdering Facility: [facility] Address: [address] [place] [address] Performed By: #### 5 8410-2 ####[facility]ORYCLIA [id number] [address] Nucleated RBC (Bld) [#/Vol] 10*3/uL Normal <0.01 [facility] Comment on above: Order Comment: Speci men Type: BLOOD SPECIMENOrdering Facility: [facility] Address: [address] [place] [address] Performed By: #### 5 8410-2 ####[facility]ORYCLIA [id number] [address] [place] Platelet mean volume (Bld) [Entitic vol] 11.1 fL Normal 9.0-12.7 [facility] Comment on above: Order Comment: Speci men Type: BLOOD SPECIMENOrdering Facility: [facility] Address: [address] [place] [address] Performed By: #### 5 8410-2 ####[facility]ORYCLIA [id number] [address] [place] Platelets (Bld) [#/Vol] 252 10*3/uL Normal 150-400 [facility] Comment on above: Order Comment: Speci men Type: BLOOD SPECIMENOrdering Facility: [facility] Address: [address] [place] [address] Performed By: #### 5 8410-2 ####[facility]ORYCLIA [id number] [address] [place] RBC (Bld) [#/Vol] 4.46 10*6/uL Normal 3.90-5.20 [facility] Comment on above: Order Comment: Speci men Type: BLOOD SPECIMENOrdering Facility: [facility] Address: [address] [place] [address] Performed By: #### 5 8410-2 ####[facility]ORYCLIA [id number] [place] [address] [place] WBC (Bld) [#/Vol] 11.43 10*3/uL High 3.70-11.00 [facility] Comment on above: Order Comment: Speci men Type: BLOOD SPECIMENOrdering Facility: [facility] Address: [address] [place] [address] Performed By: #### 5 8410-2 ####[facility]ORYCLIA [id number] [address] CONSULTon 10-03-2023 CONSULT HNO ID: [id number] Author: SINDY ELLIS APRN.MICROBIOLOGICAL LABORATORY TECHNICIAN Service: Neurosurgery Author Type: Nurse Practitioner Type: Consults Filed: 10/03/2023 01:44 Note Text: Attestation signed by Maxime Umanzor MD at 10/03/2023 10:04 AM Pt seen and examined, and I agree with the above. 88F on ASA 81mg who lost her balance and fell, striking her head. No LOC. CT shows multifocal traumatic subarachnoid hemorrhage. She has a mild headache but is otherwise neurologically intact. Repeat CT on arrival shows stable multifocal hemorrhage. Was given DDAVP and keppra on admission. No surgical intervention planned. Continue keppra x7 days for seizure prophylaxis. Hold ASA for now. Follow up in [address] brain. Discussed with pt and her daughter. Maxime Umanzor MD CONSULT: NEUROSURGERY SERVICE Patient Name: Geoffrey Nassar Date of : 1935 SERVICE DATE: 10/03/2023 SERVICE TIME: 1:32 AM REASON FOR CONSULT: traumatic SAH REQUESTING PHYSICIAN: Jennifer Granados DO PRIMARY CARE PHYSICIAN: Ken Contreras MD Consultation requested by Dr. Granados for an opinion regarding SAH. My final recommendations will be communicated back to the requesting physician by way of shared Medical record or letter to requesting physician via US mail. CHIEF COMPLAINT: fall HISTORY OF PRESENT ILLNESS : Geoffrey Nassar is a 88 year old female with PMH listed below, significant for daily ASA use, who presented as a transfer from [facility] for trauma evaluation after a fall at home today. Patient states she was outside getting her mail and bent over to move a stick out of the driveway and got her foot caught on the curb and fell into the street. She did strike her head, denies LOC. Patient admits to recent falls related to imbalance recently. She states this is the third time she has struck her head since May. Patient reports headache pain and dizziness. She denies n/v, vision changes, numbness, tingling or weakness. CT imaging at [facility] revealed scattered SAH. PAST MEDICAL HISTORY Diagnosis Date Bradycardia 01/18/2021 Bronchiectasis without complication (HCC) 11/27/2009 Dr. Jaswant Miller, pulmonary. 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 Diverticulosis of small intestine (without mention of hemorrhage) Enthesopathy of hip region 07/08/2011 Essential hypertension 05/25/2008 Extrinsic asthma 01/29/2006 Family history of malignant neoplasm of gastrointestinal tract liver cancer Foraminal stenosis of cervical region 01/30/2012 Gait disturbance 01/29/2017 Gastroesophageal reflux disease with esophagitis 05/13/2013 HERNIA UMBILICAL 12/19/2005 Hypothyroidism 03/17/2005 Irritable bowel syndrome with both constipation and diarrhea 09/23/2016 Oral murray 10/29/2020 Pacemaker 07/25/2021 Pulmonary embolism with acute cor pulmonale (HCC) 11/24/2016 She was initially thought to have a NSTEMI, but was found to be a PE with Right Strain and NOT a NSTEMI. Pulmonary nodule 01/08/2017 Tubular adenoma of colon 12/29/2017 PAST SURGICAL HISTORY Procedure Laterality Date CHOLECYSTECTOMY 1998 COLONOSCOPY FLX DX W/COLLJ SPEC WHEN PFRMD 12/18/2005 COLONOSCOPY FLX DX W/COLLJ SPEC WHEN PFRMD 09/17/2011 COLONOSCOPY FLX DX W/COLLJ SPEC WHEN PFRMD 11/30/2017 Colonoscopy - adenomatous polyp-5 year follow-up EGD 05/29/2017 LASER IRIDOPLASTY OS (LEFT EYE) Left LASER IRIDOTOMY OD (RIGHT EYE) Right PACEMAKER INSERTSION 05/29/2021 dual lead PAST SURGICAL HISTORY OF 09/2007 jacinto eyelid removal dropping skin PAST SURGICAL HISTORY OF Bilateral 11/24/2011 cataract removal 11/19/11, 11/24/11 SLING OPER STRES INCONTINENCE 2005 TONSILLECTOMY HX 1956 VAG HYST 250 GM/< W/RMVL TUBEAND/OVARY 1996 uterine prolapse, hyst. bilateral oophorectomy VITRECTOMY MECHANICAL PARS PLANA Left FAMILY HISTORY Problem Relation Age of Onset Cancer Mother Arthritis Mother Kidney Disease Mother Cancer Father lung ALLERGIES Allergen Reactions Shellfish Containin* Unknown Penicillamine Unknown Benadryl [Diphenhyd* Rash Cats Cipro [Ciprofloxaci* Itching Dust Ketamine Unknown Mold Penicillins Rash Shellfish Shortness of Breath Spiriva With Handih* Intolerance not help Sulfa (Sulfonamide * GI Upset Symbicort [Budesoni* Intolerance tremor,shaky Tetanus Toxoid Adso* Intolerance arm swell Current Facility-Administered Medications Medication Dose Route Frequency Provider Last Rate Last Admin lamoTRIgine 25 mg tab(s) (LaMICtal) 25 mg ORAL DAILY Cindy Braun DO albuterol HFA 90 mcg/actuation 2 Puff (PROVENTIL HFA, VENTOLIN HFA) 2 Puff INHALATION q 4 H PRN Cindy Braun DO amLODIPine 5 mg tab(s) (NORVASC) 5 mg ORAL DAILY Max (more content not included)... Normal [facility] CT ABD/PEL W IVCONon 024 CT ABD/PEL W IVCON * * *Final Report* * * DATE OF EXAM: Oct 03 2023 2:13AM [facility] 0530 - CT ABD/PEL W IVCON / PROCEDURE REASON: Abdominal pain, acute, nonlocalized * * * * Physician Interpretation * * * * EXAMINATION: CT ABDOMEN AND PELVIS WITH IV CONTRAST. CT chest with contrast. Reconstructions of thoracic and lumbar spine. CLINICAL HISTORY: Fall. Low back pain. TECHNIQUE: CT ABDOMEN AND PELVIS WITH IV CONTRAST. CT chest with contrast. Reconstructions of thoracic and lumbar spine. Contrast: IV: 100 ml of Omnipaque 350 : ml of CT Radiation dose: Integrated Dose-length product (DLP) for this visit = 1294 mGy*cm. CT Dose Reduction Employed: Automated exposure control(AEC) and iterative recon COMPARISON: None. RESULT: Chest/thoracic spine: Left-sided pacemaker. Subsegmental atelectasis at right lower lobe. Bronchiectasis within the right middle lobe and lingula. Scattered bilateral tree-in-bud opacities. Regions of mucous plugging within the right middle lobe and right lower lobe. No pleural effusion. The heart is not enlarged. No pericardial effusion. There are no fractures, subluxations, prevertebral edema involving the thoracic spine. Abdomen/pelvis/lumbar spine: Liver: No mass. Biliary: Cholecystomy. Spleen: No mass. No splenomegaly. Pancreas: No mass or duct dilation. Adrenals: No mass. Kidneys: Unremarkable. GI tract: No dilation or wall thickening. Lymph nodes: No abdominal or pelvic lymphadenopathy. Mesentery/Peritoneum: No ascites or mass. Retroperitoneum: No mass. Vasculature: The portal veins, superior mesenteric vein, superior mesenteric artery, celiac axis, and splenic vein are patent. Pelvis: Tamayo catheter within urinary bladder. Mild inflammatory changes about urinary bladder. Bones/Soft Tissues: Unremarkable. Education Managers (topogram) images: Unremarkable. IMPRESSION: Chest: Bronchiectasis within the right middle lobe and lingula. Scattered bilateral tree-in-bud opacities. Regions of mucous plugging within the right middle lobe and right lower lobe. Overall findings compatible with infection; LUISA should be considered. Thoracic spine: No acute findings Abdomen/pelvis: Mild inflammatory changes about the urinary bladder could be related to cystitis. Correlate clinically Lumbar spine: No acute findings. Leak Patcher: [facility]O Transcribe Date/Time: Oct 03 2023 2:21A Dictated by : CYNTHIA FELTON MD This examination was interpreted and the report reviewed and electronically signed by: CYNTHIA FELTON MD on Oct 03 2023 2:57AM EST [id number] Normal [facility] CT BRAIN WO IVCONon 10-03-19 CT BRAIN WO IVCON * * *Final Report* * * DATE OF EXAM: Oct 03 2023 1:59AM [facility] 0504 - CT BRAIN WO IVCON / PROCEDURE REASON: Head trauma, moderate-severe * * * * Physician Interpretation * * * * EXAMINATION: CT BRAIN WO IVCON CLINICAL HISTORY: Intracranial hemorrhage. Follow-up. TECHNIQUE: Serial axial images without IV contrast were obtained from the vertex to the foramen magnum. MQ: [id number] CT Radiation dose: Integrated Dose-Length Product (DLP) for this visit = 754 mGy*cm CT Dose Reduction Employed: Iterative recon COMPARISON: Outside institution head CT 10/02/2023 at 7:35 PM RESULT: Education Managers (topogram) images: No additional significant findings Post-operative change: None. Acute change: No evidence of an acute infarct or other acute parenchymal process. Hemorrhage: Small volume supratentorial acute hyperdense subarachnoid hemorrhage, most pronounced within the left parietal frontal and right temporal regions, similar to the prior exam. No discrete new hemorrhage in the interval. Question punctate focus parenchymal hemorrhage right cranial fossa versus additional subarachnoid hemorrhage (image 7, series 2), also similar. Mass Lesion / Mass Effect: There is no evidence of an intracranial mass or extraaxial fluid collection. No significant mass effect. Chronic change: Patchy foci of low attenuation coefficient are present within the supratentorial white matter which is a nonspecific finding but likely represents moderate microvascular ischemia. Parenchyma: There is mild generalized volume loss. The brain parenchyma is otherwise within normal limits for age. Ventricles: Ventricular enlargement concordant with the degree of parenchymal volume loss. Paranasal sinuses and skull base: No depressed calvarial fracture. Minimal right maxillary sinus mucosal thickening. There is a moderate left parietal scalp hematoma, similar to prior exam. IMPRESSION: Small volume bilateral supratentorial acute subarachnoid hemorrhage as above, not significantly changed since prior exam. Question punctate focus parenchymal hemorrhage right temporal lobe, also similar. No new hemorrhage in the interval. [facility] Transcribe Date/Time: Oct 03 2023 6:52A Dictated by : GUZMAN EVANS MD This examination was interpreted and the report reviewed and electronically signed by: GUZMAN EVANS MD on Oct 03 2023 7:01AM EST [id number] Normal [facility] CT CHEST W IVCONon 4 CT CHEST W IVCON * * *Final Report* * * DATE OF EXAM: Oct 03 2023 2:13AM [facility] 0539 - CT CHEST W IVCON / PROCEDURE REASON: Chest trauma, blunt * * * * Physician Interpretation * * * * EXAMINATION: CT ABDOMEN AND PELVIS WITH IV CONTRAST. CT chest with contrast. Reconstructions of thoracic and lumbar spine. CLINICAL HISTORY: Fall. Low back pain. TECHNIQUE: CT ABDOMEN AND PELVIS WITH IV CONTRAST. CT chest with contrast. Reconstructions of thoracic and lumbar spine. Contrast: IV: 100 ml of Omnipaque 350 : ml of CT Radiation dose: Integrated Dose-length product (DLP) for this visit = 1294 mGy*cm. CT Dose Reduction Employed: Automated exposure control(AEC) and iterative recon COMPARISON: None. RESULT: Chest/thoracic spine: Left-sided pacemaker. Subsegmental atelectasis at right lower lobe. Bronchiectasis within the right middle lobe and lingula. Scattered bilateral tree-in-bud opacities. Regions of mucous plugging within the right middle lobe and right lower lobe. No pleural effusion. The heart is not enlarged. No pericardial effusion. There are no fractures, subluxations, prevertebral edema involving the thoracic spine. Abdomen/pelvis/lumbar spine: Liver: No mass. Biliary: Cholecystomy. Spleen: No mass. No splenomegaly. Pancreas: No mass or duct dilation. Adrenals: No mass. Kidneys: Unremarkable. GI tract: No dilation or wall thickening. Lymph nodes: No abdominal or pelvic lymphadenopathy. Mesentery/Peritoneum: No ascites or mass. Retroperitoneum: No mass. Vasculature: The portal veins, superior mesenteric vein, superior mesenteric artery, celiac axis, and splenic vein are patent. Pelvis: Tamayo catheter within urinary bladder. Mild inflammatory changes about urinary bladder. Bones/Soft Tissues: Unremarkable. Education Managers (topogram) images: Unremarkable. IMPRESSION: Chest: Bronchiectasis within the right middle lobe and lingula. Scattered bilateral tree-in-bud opacities. Regions of mucous plugging within the right middle lobe and right lower lobe. Overall findings compatible with infection; LUISA should be considered. Thoracic spine: No acute findings Abdomen/pelvis: Mild inflammatory changes about the urinary bladder could be related to cystitis. Correlate clinically Lumbar spine: No acute findings. Leak Patcher: TEMO Transcribe Date/Time: Oct 03 2023 2:21A Dictated by : CYNTHIA FELTON MD This examination was interpreted and the report reviewed and electronically signed by: CYNTHIA FELTON MD on Oct 03 2023 2:57AM EST [id number] Normal [facility] CT LUMBAR SPINE W RECON DATA -NBon 10-03-2023 CT LUMBAR SPINE W RECON DATA -NB * * *Final Report* * * DATE OF EXAM: Oct 03 2023 2:13AM [facility] 0481 - CT LUMBAR SPINE W RECON DATA -NB / PROCEDURE REASON: Low back pain, trauma * * * * Physician Interpretation * * * * EXAMINATION: CT ABDOMEN AND PELVIS WITH IV CONTRAST. CT chest with contrast. Reconstructions of thoracic and lumbar spine. CLINICAL HISTORY: Fall. Low back pain. TECHNIQUE: CT ABDOMEN AND PELVIS WITH IV CONTRAST. CT chest with contrast. Reconstructions of thoracic and lumbar spine. Contrast: IV: 100 ml of Omnipaque 350 : ml of CT Radiation dose: Integrated Dose-length product (DLP) for this visit = 1294 mGy*cm. CT Dose Reduction Employed: Automated exposure control(AEC) and iterative recon COMPARISON: None. RESULT: Chest/thoracic spine: Left-sided pacemaker. Subsegmental atelectasis at right lower lobe. Bronchiectasis within the right middle lobe and lingula. Scattered bilateral tree-in-bud opacities. Regions of mucous plugging within the right middle lobe and right lower lobe. No pleural effusion. The heart is not enlarged. No pericardial effusion. There are no fractures, subluxations, prevertebral edema involving the thoracic spine. Abdomen/pelvis/lumbar spine: Liver: No mass. Biliary: Cholecystomy. Spleen: No mass. No splenomegaly. Pancreas: No mass or duct dilation. Adrenals: No mass. Kidneys: Unremarkable. GI tract: No dilation or wall thickening. Lymph nodes: No abdominal or pelvic lymphadenopathy. Mesentery/Peritoneum: No ascites or mass. Retroperitoneum: No mass. Vasculature: The portal veins, superior mesenteric vein, superior mesenteric artery, celiac axis, and splenic vein are patent. Pelvis: Tamayo catheter within urinary bladder. Mild inflammatory changes about urinary bladder. Bones/Soft Tissues: Unremarkable. Education Managers (topogram) images: Unremarkable. IMPRESSION: Chest: Bronchiectasis within the right middle lobe and lingula. Scattered bilateral tree-in-bud opacities. Regions of mucous plugging within the right middle lobe and right lower lobe. Overall findings compatible with infection; LUISA should be considered. Thoracic spine: No acute findings Abdomen/pelvis: Mild inflammatory changes about the urinary bladder could be related to cystitis. Correlate clinically Lumbar spine: No acute findings. Leak Patcher: PSCB Transcribe Date/Time: Oct 03 2023 2:21A Dictated by : CYNTHIA FELTON MD This examination was interpreted and the report reviewed and electronically signed by: CYNTHIA FELTON MD on Oct 03 2023 2:57AM EST [id number] N Normal [facility] CT T-SPINE W RECON DATA -NBo n 10-03-2023 CT T-SPINE W RECON DATA -NB * * *Final Report* * * DATE OF EXAM: Oct 03 2023 2:13AM [facility] 0485 - CT T-SPINE W RECON DATA -NB / PROCEDURE REASON: Spine fracture, thoracic, traumatic * * * * Physician Interpretation * * * * EXAMINATION: CT ABDOMEN AND PELVIS WITH IV CONTRAST. CT chest with contrast. Reconstructions of thoracic and lumbar spine. CLINICAL HISTORY: Fall. Low back pain. TECHNIQUE: CT ABDOMEN AND PELVIS WITH IV CONTRAST. CT chest with contrast. Reconstructions of thoracic and lumbar spine. Contrast: IV: 100 ml of Omnipaque 350 : ml of CT Radiation dose: Integrated Dose-length product (DLP) for this visit = 1294 mGy*cm. CT Dose Reduction Employed: Automated exposure control(AEC) and iterative recon COMPARISON: None. RESULT: Chest/thoracic spine: Left-sided pacemaker. Subsegmental atelectasis at right lower lobe. Bronchiectasis within the right middle lobe and lingula. Scattered bilateral tree-in-bud opacities. Regions of mucous plugging within the right middle lobe and right lower lobe. No pleural effusion. The heart is not enlarged. No pericardial effusion. There are no fractures, subluxations, prevertebral edema involving the thoracic spine. Abdomen/pelvis/lumbar spine: Liver: No mass. Biliary: Cholecystomy. Spleen: No mass. No splenomegaly. Pancreas: No mass or duct dilation. Adrenals: No mass. Kidneys: Unremarkable. GI tract: No dilation or wall thickening. Lymph nodes: No abdominal or pelvic lymphadenopathy. Mesentery/Peritoneum: No ascites or mass. Retroperitoneum: No mass. Vasculature: The portal veins, superior mesenteric vein, superior mesenteric artery, celiac axis, and splenic vein are patent. Pelvis: Tamayo catheter within urinary bladder. Mild inflammatory changes about urinary bladder. Bones/Soft Tissues: Unremarkable. Education Managers (topogram) images: Unremarkable. IMPRESSION: Chest: Bronchiectasis within the right middle lobe and lingula. Scattered bilateral tree-in-bud opacities. Regions of mucous plugging within the right middle lobe and right lower lobe. Overall findings compatible with infection; LUISA should be considered. Thoracic spine: No acute findings Abdomen/pelvis: Mild inflammatory changes about the urinary bladder could be related to cystitis. Correlate clinically Lumbar spine: No acute findings. Leak Patcher: TEMO Transcribe Date/Time: Oct 03 2023 2:21A Dictated by : CYNTHIA FELTON MD This examination was interpreted and the report reviewed and electronically signed by: CYNTHIA FELTON MD on Oct 03 2023 2:57AM EST [id number] Normal [facility] Calcium.ionized [Moles/Vol]o n 10-03-2023 Calcium.ionized (BldV) [Mass/Vol] 1.20 mmol/L Normal 1.08-1.30 [facility] Comment on above: Order Comment: Speci men Type: BLOOD SPECIMENOrdering Facility: [facility] Address: [address] [place] [address] Performed By: #### 1 995-0 ####[facility] LABORATORYCLIA [id number] [address] [place] Calcium.ionized adjusted to pH 7.4 (Bld) [Moles/Vol] 1.21 mmol/L Normal 1.08-1.30 [facility] Comment on above: Order Comment: Speci men Type: BLOOD SPECIMENOrdering Facility: [facility] Address: [address] [place] [address] Performed By: #### 1 995-0 ####[facility]ORATORYCLIA [id number] [address] [place] ECHOon 10-03-2023 Echocardiography Echocardiography Report: Transthoracic Echo [facility] Date of service: 10/03/2023 7:45:32 AM HOSPITAL Ordering physician: GRZEGORZ BEEBE Indication: Frequent PVCs Technologist: Pat Pollock [facility] Interpreting physician: Lorezno Salazar MD PATIENT: Name: MS. GEOFFREY NASSAR : 1935 Age: 88 years Gender: F History of arrhythmia and chronic kidney disease. Previous cardiovascular interventions: Pacer Primary rhythm: sinus. Height: 158.50 cm BSA: 1.85 m Weight: 78.02 kg BMI: 31.1 kg/m Heart rate 60 bpm Blood pressure 106/50 mmHg Color Doppler was utilized to interrogate the cardiac valves assessed and spectral Doppler was utilized to determine the flow velocities and pressure gradients reported in this exam. Myocardial strain analysis was performed in this exam to aid in the assessment of cardiac function. MEASUREMENTS: Value Indexed Normal Max aortic dimension 3.4 cm Ao < 3.8 Left atrial volume 56 ml (biplane A-L) 30 ml/m Abeba <= 34 LV ID (diastole) 4.5 cm (2D) 2.41 cm/m LV ID (systole) 3.0 cm (2D) 1.61 cm/m IVS, leaflet tips 0.9 cm (2D) Posterior wall thickness 0.8 cm (2D) Left ventricular mass 115 g (2D) 62 g/m Global peak long strain -20.6 % LV stroke volume 38 ml (2D 4-ch.) LV end diastolic volume 62 ml (2D 4-ch.) 33.4 ml/m 29<=EDVi<62 LV end systolic volume 24 ml (2D 4-ch.) 13.1 ml/m Ejection Fraction 61 % (2D 4-ch.) EF > 54 FINDINGS: LEFT VENTRICLE The left ventricle is normal in size. Left ventricular systolic function is normal globally. Global LV myocardial strain is normal. Normal left ventricular diastolic function. Mitral annular lateral E/e': 6.6. Mitral annular septal E/e': 7.3. Wall Motion: All scored segments are normal. RIGHT VENTRICLE The right ventricle is normal in size. Pacer wires are noted in the right ventricle. Right ventricular systolic function is normal. RV systolic tissue Doppler velocity is 15.0 cm/s. Tricuspid annular displacement is 2.5 cm. Estimated right ventricular systolic pressure is 35 mmHg consistent with upper normal pulmonary artery pressures. Estimated right atrial pressure is 3 mmHg based on IVC assessment. LEFT ATRIUM The left atrial cavity is normal in size. Pulmonary Veins: The pulmonary venous pattern showed normal systolic flow. RIGHT ATRIUM The right atrial cavity is normal in size. Pacer wires are noted in the right atrium. Inferior Vena Cava: The inferior vena cava appears normal measuring 1.3 cm. The vessel decreases greater than 50 percent with inspiration. MITRAL VALVE The mitral valve leaflets are structurally normal. There is mild mitral annular calcification observed posterior. There is trace mitral valve regurgitation. The pressure half time is 70 msec. The peak mitral E/A ratio is 0.72. The average mitral E/e' ratio is 7.0. The mitral flow deceleration time is 241 msec. TRICUSPID VALVE Rosebud tricuspid valve. There is mild (1+ - 2+) tricuspid valve regurgitation. The hepatic venous pattern showed normal systolic flow. AORTIC VALVE The aortic valve cusps are structurally normal. There is no aortic valve stenosis. There is no aortic valve regurgitation. Tricuspid aortic valve. PULMONIC VALVE The pulmonic valve cusps are structurally normal. There is trace pulmonic valve regurgitation. AORTA The visualized aorta is normal in size. Measurements - Sinus: 2.9 cm. Sinotubular junction 2.7 cm. Mid ascending aorta 3.4 cm. INTERATRIAL SEPTUM There is no evidence of intracardiac shunting as detected by Doppler. INTERVENTRICULAR SEPTUM There is no flow through the interventricular septum as detected by Doppler. PERICARDIUM There is no pericardial effusion. CONCLUSIONS: - Exam indication: Frequent PVCs - The left ventricle is normal in size. Left ventricular systolic function is normal. EF = 61 5% (2D 4-ch.) Normal left ventricular diastolic function. - The right ventricle is normal in size. Right ventricular systolic function is normal. Pacer seen on right side - Exam was compared with the prior CC echocardiographic exam performed on 11/29/2020. Report not available * * * Final * * * CC [employer] [facility] : [id number] [email or web address] [facility] ED NOTEon 10-03-2023 ED NOTE HNO ID: [id number] Author: RUFINA BAUM RN Service: Nursing Author Type: Registered Nurse Type: ED Notes Filed: 10/03/2023 01:48 Note Text: CT notified pt ready [facility] ED NOTE HNO ID: [id number] Author: RUFINA BAUM RN Service: Nursing Author Type: Registered Nurse Type: ED Notes Filed: 10/03/2023 01:23 Note Text: Report called to Kelsi on [address] [facility] HISTORY PHYSICALon HISTORY PHYSICAL HNO ID: [id number] Author: ZAMZAM WOOSD MD Service: General Surgery Author Type: Physician Type: H&P Filed: 10/03/2023 14:05 Note Text: Surgical Intensive Care Unit Consult Note SERVICE DATE: 10/03/2023 SERVICE TIME: 12:13 AM REASON FOR CONSULT: Head bleed REQUESTING PHYSICIAN: Dr. woods Subjective 88 year old female with PMH HTN, depression, GERD, hypothyroidism, bradycardia (S/p pacemaker), prior cholecystectomy, STEPHON BSO presents from [place] after GLF. Patient states she was throwing a twig toward her mailbox and fell backward striking the back of her head onto cement. She denies LOC. She admits to aspirin (last taken today 10/03). GCS 15. She does state she has been falling more frequently lately due to being unsteady on her gait. On arrival, she is HDS and neurologically intact. She admits to headache, intermittent chest pain and back pain. Workup at outside ED is significant for CT HN showing multiple bilateral parietal and frontoparietal cortical SAH, small focus within right temporal lobe. FUNCTIONAL STATUS: Independent PAST MEDICAL HISTORY Diagnosis Date Bradycardia 01/18/2021 Bronchiectasis without complication (HCC) 11/27/2009 Dr. Jaswant Miller, pulmonary. 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 Diverticulosis of small intestine (without mention of hemorrhage) Enthesopathy of hip region 07/08/2011 Essential hypertension 05/25/2008 Extrinsic asthma 01/29/2006 Family history of malignant neoplasm of gastrointestinal tract liver cancer Foraminal stenosis of cervical region 01/30/2012 Gait disturbance 01/29/2017 Gastroesophageal reflux disease with esophagitis 05/13/2013 HERNIA UMBILICAL 12/19/2005 Hypothyroidism 03/17/2005 Irritable bowel syndrome with both constipation and diarrhea 09/23/2016 Oral murray 10/29/2020 Pacemaker 07/25/2021 Pulmonary embolism with acute cor pulmonale (HCC) 11/24/2016 She was initially thought to have a NSTEMI, but was found to be a PE with Right Strain and NOT a NSTEMI. Pulmonary nodule 01/08/2017 Tubular adenoma of colon 12/29/2017 PAST SURGICAL HISTORY Procedure Laterality Date CHOLECYSTECTOMY 1998 COLONOSCOPY FLX DX W/COLLJ SPEC WHEN PFRMD 12/18/2005 COLONOSCOPY FLX DX W/COLLJ SPEC WHEN PFRMD 09/17/2011 COLONOSCOPY FLX DX W/COLLJ SPEC WHEN PFRMD 11/30/2017 Colonoscopy - adenomatous polyp-5 year follow-up EGD 05/29/2017 LASER IRIDOPLASTY OS (LEFT EYE) Left LASER IRIDOTOMY OD (RIGHT EYE) Right PACEMAKER INSERTSION 05/29/2021 dual lead PAST SURGICAL HISTORY OF 09/2007 jacinto eyelid removal dropping skin PAST SURGICAL HISTORY OF Bilateral 11/24/2011 cataract removal 11/19/11, 11/24/11 SLING OPER STRES INCONTINENCE 2004 TONSILLECTOMY HX 195 VAG HYST 250 GM/< W/RMVL TUBEAND/OVARY 1996 uterine prolapse, hyst. bilateral oophorectomy VITRECTOMY MECHANICAL PARS PLANA Left FAMILY HISTORY Problem Relation Age of Onset Cancer Mother Arthritis Mother Kidney Disease Mother Cancer Father lung Social History Tobacco Use Smoking status: Former Packs/day: 0.50 Years: 10.00 Additional pack years: 0.00 Total pack years: 5.00 Types: Cigarettes Quit date: 05/14/1965 Years since quittin.4 Smokeless tobacco: Never Vaping Use Vaping Use: Never used Substance Use Topics Alcohol use: Yes Comment: 1/2 glass of wine twice per month Drug use: No (Not in a hospital admission) Current Facility-Administered Medications Medication Dose Route Frequency desmopressin 28 mcg in NaCl 0.9% 50 mL (DDAVP) 0.4 mcg/kg/dose (Adjusted) INTRAVENOUS ONCE NaCl 0.9% iv flush bag 20 mL INTRAVENOUS PRN Allergies As of Date: 10/02/2023 Allergen Noted Reaction SHELLFISH CONTAINING PRODUCTS 11/27/2016 Unknown PENICILLAMINE 11/27/2016 Unknown BENADRYL [DIPHENHYDRAMINE HCL] 10/05/2017 Rash CATS 12/19/2005 CIPRO [CIPROFLOXACIN] 03/17/2005 Itching DUST 12/19/2005 KETAMINE 04/07/2019 Unknown MOLD 08/06/2006 PENICILLINS 03/17/2005 Rash SHELLFISH 03/17/2005 Shortness of Breath SPIRIVA WITH HANDIHALER [TIOTROPI*04/13/2008 Intolerance SULFA (SULFONAMIDE ANTIBIOTICS) 12/15/2011 GI Upset SYMBICORT [BUDESONIDE-FORMOTERO L] 11/27/2009 Intolerance TETANUS TOXOID ADSORBED 10/14/2007 Intolerance Fully Assessed 10/02/2023 COMPLETE REVIEW OF SYSTEMS: GENERAL: No weight loss, malaise or fevers. HEENT: Negative for frequent or significant headaches, No changes in hearing or vision, no nose bleeds or other nasal problems. NECK: Negative for lumps, goiter, pain and significant neck swelling. RESPIRATORY: Negative for cough, hemoptysis, wheezing, COPD, dyspnea or shortness of breath. CARDIOVASCULAR: Negative for chest pain, leg swelling, hypertension, CHF or palpitations. GI: No nausea, vomiting, or diarrhea. MUSCULOSKELETAL: Negative for joint pain or swelling, back pain or muscle pain. SKIN: Negative for (more content not included)... Normal [facility] HISTORY PHYSICAL HNO ID: [id number] Author: WEN GALICIA MD Service: General Surgery Author Type: Physician Type: H&P Filed: 10/03/2023 10:37 Note Text: TRAUMA SURGERY [facility] ARRIVAL DATE: 10/02/2023 ARRIVAL TIME: 10PM INJURY DATE: 10/02/2023 INJURY TIME: unknown Subjective 88 year old female with PMH HTN, depression, GERD, hypothyroidism, bradycardia (S/p pacemaker), prior cholecystectomy, STEPHON BSO presents from [place] after GLF. Patient states she was throwing a twig toward her mailbox and fell backward striking the back of her head onto cement. She denies LOC. She admits to aspirin (last taken today 10/03). GCS 15. She does state she has been falling more frequently lately due to being unsteady on her gait. On arrival, she is HDS and neurologically intact. She admits to headache, intermittent chest pain and back pain. Workup at outside ED is significant for CT HN showing multiple bilateral parietal and frontoparietal cortical SAH, small focus within right temporal lobe. 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 LAST FLUIDS/MEAL: Prior to arrival CODE STATUS: Discussed with patient- Full code ALLERGIES Allergen Reactions Shellfish Containin* Unknown Penicillamine Unknown Benadryl [Diphenhyd* Rash Cats Cipro [Ciprofloxaci* Itching Dust Ketamine Unknown Mold Penicillins Rash Shellfish Shortness of Breath Spiriva With Handih* Intolerance not help Sulfa (Sulfonamide * GI Upset Symbicort [Budesoni* Intolerance tremor,shaky Tetanus Toxoid Adso* Intolerance arm swell (Not in a hospital admission) DATE OF LAST TETANUS: below Immunization History Administered Date(s) Administered COVID-19 original vaccine, age 12+ yr, monovalent ([place] - SEVILLA TOP) 01/23/2022 COVID-19 vaccine (NakedRoom) 11/15/2020 08/15/2021 hepatitis B (HepB) vaccine, 3-dose series, age 20+ yr (ENGERIX-B, RECOMBIVAX HB) 05/15/2003 06/14/2003 01/03/2004 influenza (HD-IIV3) vaccine, age 65+ yr, high dose, PF (FLUZONE HIGH-DOSE) 09/24/2015 05/20/2016 06/24/2017 06/30/2018 07/07/2019 influenza (HD-IIV4) vaccine, age 65+ yr, high dose, quadrivalent, PF (FLUZONE HIGH-DOSE) 07/04/2020 05/21/2023 influenza (IIV3) vaccine, age 3+ yr, trivalent (AFLURIA, FLULAVAL, FLUVIRIN, FLUZONE) 08/07/2014 influenza (IIV3) vaccine, trivalent (AFLURIA, FLULAVAL, FLUVIRIN, FLUZONE) 05/30/2021 influenza (IIV3) vaccine, trivalent, PF (AFLURIA, FLUARIX, FLULAVAL, FLUVIRIN, FLUZONE) 05/12/2016 05/30/2021 influenza vaccine, unspecified formulation 08/13/2005 07/06/2006 07/12/2007 07/18/2008 06/07/2009 06/18/2010 06/19/2011 06/22/2012 06/22/2012 06/27/2013 pneumococcal (PCV13) vaccine, 13 valent (PREVNAR 13) 09/12/2014 pneumococcal (PPV23) vaccine, 23 valent (PNEUMOVAX 23) 10/06/2005 06/24/2017 tetanus diphtheria (Td) vaccine, age 7+ yr, 5 Lf tetanus, PF (TENIVAC) 05/21/2023 tetanus diphtheria pertussis (Tdap) vaccine, age 7+ yr (ADACEL, BOOSTRIX) 06/22/2012 zoster (RZV) vaccine, recombinant (SHINGRIX) 11/05/2021 04/14/2022 zoster (ZVL) vaccine, live (ZOSTAVAX) 09/17/2011 PAST MEDICAL HISTORY Diagnosis Date Bradycardia 01/18/2021 Bronchiectasis without complication (HCC) 11/27/2009 Dr. Jaswant Miller, pulmonary. 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 Diverticulosis of small intestine (without mention of hemorrhage) Enthesopathy of hip region 07/08/2011 Essential hypertension 05/25/2008 Extrinsic asthma 01/29/2006 Family history of malignant neoplasm of gastrointestinal tract liver cancer Foraminal stenosis of cervical region 01/30/2012 Gait disturbance 01/29/2017 Gastroesophageal reflux disease with esophagitis 05/13/2013 HERNIA UMBILICAL 12/19/2005 Hypothyroidism 03/17/2005 Irritable bowel syndrome with both constipation and diarrhea 09/23/2016 Oral murray 10/29/2020 Pacemaker 07/25/2021 Pulmonary embolism with acute cor pulmonale (HCC) 11/24/2016 She was initially thought to have a NSTEMI, but was found to be a PE with Right Strain and NOT a NSTEMI. Pulmonary nodule 01/08/2017 Tubular adenoma of colon 12/29/2017 PAST SURGICAL HISTORY Procedure Laterality Date CHOLECYSTECTOMY 1998 COLONOSCOPY FLX DX W/COLLJ SPEC WHEN PFRMD 12/18/2005 COLONOSCOPY FLX DX W/COLLJ SPEC WHEN PFRMD 09/17/2011 COLONOSCOPY FLX DX W/COLLJ SPEC WHEN PFRMD 11/30/2017 Colonoscopy - adenomatous polyp-5 year follow-up EGD 05/29/2017 LASER IRIDOPLASTY OS (LEFT EYE) Left LASER IRIDOTOMY OD (RIGHT EYE) Right PACEMAKER INSERTSION 05/29/2021 dual lead PAST SURGICAL HISTORY OF 09/2007 jacinto eyelid removal dropping skin PAST SURGICAL HISTORY OF Bilateral 11/24/2011 cataract removal 11/19/11, 11/24/11 SLING OPER STRES INCONTINENCE 20 (more content not included)... Normal [facility] [employer] normalized rat io (INR) calculationOrdered By: Janett Her on 10-03-2023 INR Coag (PPP) [Relative time] 1.0 {INR} Normal 0.9-1.3 [facility] Comment on above: Order Comment: Jacob chavez Type: BLOOD SPECIMENOrdering Facility: [facility] Address: [address] [place] [address] Result Comment: Rebecca min K Antagonist (VKA) Therapeutic Range: INR 2 to 3 (Target INR of 2.5) Note: For patients treated with VKA drugs, such as warfarin, the [place] [employer] 2012 Guideline recommends a therapeutic INR range of 2 to 3 (target INR of 2.5). This recommendation includes high-risk patients with antiphospholipid syndrome with previous arterial or venous thromboembolism, current-generation mechanical or bioprosthetic aortic heart valve replacement. Note: Patients with mechanical aortic valve replacement and additional risk factors for thromboembolic events (atrial fibrillation, previous thromboembolism, LV dysfunction, hypercoagulable conditions) or an older generation mechanical AVR (i.e., ball in-Cage) or any mechanical MVR should have a INR therapeutic range of 2.5 to 3.5 (target INR of 3). Mir GH, et al. Chest 2012, 141:7S-47S Marcia RA, et al. [facility] 2017, 70: 252-289 Performed By: #### 1 4979-9, 89720-2 ####[facility] LABORATORYCLIA [id number] [place] [address] [place] Magnesium SerPl-mCncon 10-03 Magnesium [Mass/Vol] 2.1 mg/dL Normal 1.7-2.3 [facility] Comment on above: Order Comment: Jacob chavez Type: BLOOD SPECIMENOrdering Facility: [facility] Address: [address] [place] [address] Performed By: #### 1 9123-9, 2777-1, 76101-3 ####[facility]ATORYCLIA [id number] [place] [address] [place] PLATELET MAPPINGon 4 ADP INHIBITION 15.3 % Normal 0-17 [facility] Comment on above: Order Comment: Jacob chavez Type: BLOOD SPECIMENOrdering Facility: [facility] Address: [address] [place] [address] Performed By: #### P LTMAP ####[facility]ORATORYCLIA [id number] [address] [place] ARACHIDONIC ACID INHIBITION 53.1 % High 0-11 [facility] Comment on above: Order Comment: Speci men Type: BLOOD SPECIMENOrdering Facility: [facility] Address: [address] [place] [address] Performed By: #### P LTMAP ####[facility]ORYCLIA [id number] [address] [place] Maximum amplitude activator F induced Resonance TEG (Bld) [Length] 20 mm High 2-19 [facility] Comment on above: Order Comment: Speci men Type: BLOOD SPECIMENOrdering Facility: [facility] Address: [address] [place] [address] Performed By: #### P LTMAP ####[facility]ATORYCLIA [id number] [address] Maximum amplitude kaolin induced after addition of heparinase Resonance TEG (Bld) [Length] 66.5 mm Normal 53-68 [facility] Comment on above: Order Comment: Speci men Type: BLOOD SPECIMENOrdering Facility: [facility] Address: [address] [place] [address] Performed By: #### P LTMAP ####[facility]ORYCLIA [id number] [address] [place] Platelet aggregation ADP induced Qn (Bld) 59.4 mm Normal 45-69 [facility] Comment on above: Order Comment: Speci men Type: BLOOD SPECIMENOrdering Facility: [facility] Address: [address] [place] [address] Performed By: #### P LTMAP ####[facility]ORYCLIA [id number] [address] Platelet aggregation arachidonate induced Qn (Bld) 41.8 mm Low 51-71 [facility] Comment on above: Order Comment: Speci men Type: BLOOD SPECIMENOrdering Facility: [facility] Address: [address] [place] [address] Performed By: #### P LTMAP ####[facility]ATORYCLIA [id number] [place] [id number] [place] [facility] THROMBOGRAPH INTERP Normal [facility] Comment on above: Order Comment: Speci men Type: BLOOD SPECIMENOrdering Facility: [facility] Address: [address] [place] [address] Result Comment: The PlateletMapping Cartridge, is a modified thromboelastogram (TEG) assay that measures the % Aggregation for AA and ADP and in comparison to the thrombin mediated platelet clot (Kaolin with Heparinase, HKH), calculates the % Inhibition for AA and ADP. The Maximal Amplitude when platelets are activated by thrombin in the presence of heparinase, HKH (MA), a measure of platelet function, is normal. The ActF MA is a measure of fibrinogen conversion into fibrin monomers and its polymerization into a fibrin clot when thrombin and platelets are inhibited. An increased ActF MA indicates increased fibrinogen concentration and/or function. The Maximal Amplitude when platelets are activated by ADP while thrombin is inhibited by heparin from the collection tube, ADP (MA), a measure of platelet response and aggregation to ADP, is normal. The Maximal Amplitude when platelets are activated by Arachidonic Acid while thrombin is inhibited by heparin from the collection tube, AA (MA), a measure of platelet response and aggregation to AA, is decreased. This may be consistent with platelet inhibition by anti-platlet drugs or intrinsic platelet dysfunction. The ADP Percent inhibition is calculated based on the relative contribution of platelet aggregation induced by AA compared to the maximum contribution platelet clot formation induced by thrombin. The ADP % inhibition is within normal range. The AA Percent inhibition is calculated based on the relative contribution of platelet aggregation induced by AA compared to the maximum contribution platelet clot formation induced by thrombin. An increased % inhibition may be due to anti-platelet drugs or intrinsic platelet dysfunction. The platelet mapping was not validated for monitoring aspirin, clopidrogel or other antiplatelet drugs. If that is the intent, recommend the aspirin/ clopidogrel resistant panel (ASPCLP). Performed By: #### P LTMAP ####[facility]ORATORYCLIA [id number] [place] [address] [facility] [place] PT panel Coag (PPP)on 2023 PT Coag (PPP) [Time] 10.2 s Normal 9.7-13.0 [facility] Comment on above: Order Comment: Speci men Type: BLOOD SPECIMENOrdering Facility: [facility] Address: [address] [place] [address] Performed By: #### 1 4979-9, 86535-4 ####[facility] LABORATORYCLIA [id number] [place] [address] [place] Phosphate SerPl-mCncon 10-03 Phosphate [Mass/Vol] 1.7 mg/dL Low 2.7-4.8 [facility] Comment on above: Order Comment: Speci men Type: BLOOD SPECIMENOrdering Facility: [facility] Address: [address] [place] [address] Performed By: #### 1 9123-9, 2777-1, 38694-0 ####[facility] LABORATORYCLIA [id number] [address] STATES OF [place] STAPH AUREUS PCRon 4 S. aureus and MRSA panel AQUILINO+probe (Nose) Normal Negative [facility] Comment on above: Order Comment: Speci men Type: SWAB OF INTERNAL NOSEOrdering Facility: [facility] Address: [address] [place] [address] Result Comment: Nega tive for Staphylococcus aureus by PCR. Negative for MRSA by PCR Performed By: #### S APCR ####[facility] LABORATORYCLIA [id number] [address] [place] THERAPY NTon 10-03-2023 THERAPY NT HNO ID: [id number] Author: RADHA ALVAREZ, PT Service: Physical Therapy Author Type: Physical Therapist Type: Therapy (PT/OT/Speech/Resp) Filed: 10/03/2023 16:17 Note Text: Physical Therapy Evaluation Summary SERVICE DATE: 10/03/2023 SERVICE TIME: 1515 to 1540 ROOM: [id number] PT 6 Clicks Score: 18 DISCHARGE RECOMMENDATIONS Home ASSESSMENT Response to Therapy Interventions: Good Participation in Activities, Low Activity Tolerance PRECAUTIONS Bed/Chair Alarm, Lines/Tubes/Drains CURRENT HOSPITAL COURSE fall in driveway; found to have Multiple bilateral parietal and frontoparietal cortical SAH, small focus within right temporal lobe Relevant Past Medical History: depression, OA, anxiety, bilat glaucoma, CKD HOME LIVING Patient Lives With: Family (brother) Assistance Available: Part-Time Entry To Home: Stairs Equipment Owned: Cane, Rollator PRIOR FUNCTIONAL LEVEL Within Functional Limits normally indep; pt and brother usually share tasks but since brother has been ill she has done more SUBJECTIVE pleasant and agreeable to PT; wants to go to restroom THERAPY DIAGNOSIS Reduced mobility-other, Unsteadiness on feet, Abnormalities of gait and mobility-other TREATMENT INTERVENTIONS Evaluation, Therapeutic Activity (58928) Timed Code Treatment (minutes): 8 Skilled Treatment Time (minutes): 25 $ Evaluation-Moderate (91788) Billed Units: 1 unit Therapeutic Activity (83432) Treatment Minutes: 8 $ Therapeutic Activity (27014) Billed Units: 1 unit Pt reported dizziness upon standing--cues to stand still at walker, take breaths and relax--dizziness resolved Cues for safe mobility including transfers and ambulation Pt reported needing to use restroom--close stand by assist while seated on commode d/t fall risk per nursing TRAINING AND EDUCATION PROVIDED Bed Mobility, Benefits of In-Hospital Mobility, Discharge Planning, Falls Prevention, Home Safety, Role of Physical Therapy, Transfers THERAPEUTIC SKILLS USED Activity Dosing, Assessment of Tolerance Including Vitals Response to Activity, Cues for Sequencing/Proper Technique for Activity, Physical Assist, Movement Facilitation FUNCTIONAL STATUS Bed Mobility Supine To Sit: Minimal Assistance Sit to Supine: Minimal Assistance Transfers Sit To Stand: Minimal Assistance Stand To Sit: Minimal Assistance Bed to Chair Gait Minimal Assistance Gait Device: Wheeled Walker General Deviations/Observatio ns: Carolyne decreased, Flexed trunk posture, Step length decreased Gait Distance (feet): 25'x2 Stairs Range of Motion: WFL Strength: WFL Except, Strength Limitation Comments Strength Limitation Comments: needed assist to bring LEs into bed GOALS Transfer Supine to/from Sit with: Stand By Assistance Transfer Sit to/from Stand with: Stand By Assistance Ambulate with: Stand By Assistance Distance: 50'x2 Device: Wheeled Walker Goal: sit to/from stand x10 reps SBA Rehab Potential: Good PLAN PT Frequency: 4 Times Per Week (1-4) Treatment Interventions: Education, Functional Mobility Training, Balance Training SIGNATURE: Radha [place], PT PATIENT NAME: Geoffrey Nassar DATE: October 03, 2023 TIME: 4:14 PM Normal [facility] TOX SCREEN ROUT URon 024 Amphetamines Confirm (U) [Mass/Vol] Negative Normal Negative [facility] Comment on above: Order Comment: Speci men Type: URINE SPECIMENOrdering Facility: [facility] Address: [address] [place] [address] Result Comment: Cuto ff threshold at 1000 ng/mL. Performed By: #### U TOX2 ####[facility] LABORATORYCLIA [id number] [place] [address] [place] BARBITURATES, URINE Negative Normal Negative [facility] Comment on above: Order Comment: Speci men Type: URINE SPECIMENOrdering Facility: [facility] Address: [address] [place] [address] Result Comment: Cuto ff threshold at 200 ng/mL. Performed By: #### U TOX2 ####[facility]ORYCLIA [id number] [place] [address] [place] BENZODIAZEPINES, UR Negative Normal Negative [facility] Comment on above: Order Comment: Speci men Type: URINE SPECIMENOrdering Facility: [facility] Address: [address] [place] [address] Result Comment: Cuto ff threshold at 200 ng/mL. Performed By: #### U TOX2 ####[facility]ATORYCLIA [id number] [place] [address] [place] Cannabinoids Screen Ql (U) Negative Normal Negative [facility] Comment on above: Order Comment: Speci men Type: URINE SPECIMENOrdering Facility: [facility] Address: [address] [place] [address] Result Comment: Cuto ff threshold at 50 ng/mL. Performed By: #### U TOX2 ####[facility]ORYCLIA [id number] [place] [address] [place] Cocaine Ql (U) Negative Normal Negative [facility] Comment on above: Order Comment: Speci men Type: URINE SPECIMENOrdering Facility: [facility] Address: [address] [place] [address] Result Comment: Cuto ff threshold at 300 ng/mL. Performed By: #### U TOX2 ####[facility]ATORYCLIA [id number] [address] STATES OF [facility] Ethanol (U) [Mass/Vol] <11 Normal <11 [facility] Comment on above: Order Comment: Speci men Type: URINE SPECIMENOrdering Facility: [facility] Address: [address] [place] [address] Performed By: #### U TOX2 ####[facility]ATORYCLIA [id number] [address] Opiates Screen Ql (U) Negative Normal Negative [facility] Comment on above: Order Comment: Speci men Type: URINE SPECIMENOrdering Facility: [facility] Address: [address] [place] [address] Result Comment: Cuto ff threshold at 300 ng/mL. Performed By: #### U TOX2 ####[facility]ORYCLIA [id number] [address] oxyCODONE cutoff Screen (U) [Mass/Vol] Negative Normal Negative [facility] Comment on above: Order Comment: Speci men Type: URINE SPECIMENOrdering Facility: [facility] Address: [address] [place] [address] Result Comment: Cuto ff threshold at 100 ng/mL. Performed By: #### U TOX2 ####[facility]ORYCLIA [id number] [address] Phencyclidine Ql (U) Negative Normal Negative [facility] Comment on above: Order Comment: Speci men Type: URINE SPECIMENOrdering Facility: [facility] Address: [address] [place] [address] Result Comment: Cuto ff threshold at 25 ng/mL. Performed By: #### U TOX2 ####[facility]ORYCLIA [id number] [address] OF [place] aPTT PPPon 10-03-2023 aPTT Coag (PPP) [Time] 27.6 s Normal 23.0-32.4 [facility] Comment on above: Order Comment: Speci men Type: BLOOD SPECIMENOrdering Facility: [facility] Address: [address] [place] [id number] Performed By: #### 1 4979-9, 42568-4 ####[facility]ATORYCLIA [id number] [address] STATES OF [facility] Absolute lymphocyte countOrd ered By: Janett Her on 10-02-2023 Lymphocytes Auto (Unsp spec) [#/Vol] 2.01 10*3/uL 0.83-4.51 [facility] Activated partial thrombopla stin time (aPTT) in platelet poor plasma by coagulation aOrdered By: Janett Her on 10-02-2023 aPTT Coag (PPP) [Time] 26.1 s 24.1-36.2 [facility] Automated lymphocyte count a s percentage of total leukocytesOrdered By: Janett Her on 10-02-2023 Lymphocytes/100 WBC Auto (Unsp spec) 19.6 % 19-41 [facility] Basophil percentageOrdered B y: Janett Her on 10-02-2023 Basophils/100 WBC (Bld) 0.5 % 0-1 [facility] Chloride [Moles/Vol] 107 mmol/L 98-107 [facility] Eosinophils/100 WBC (Bld) 3.9 % 0-5 [facility] Glucose [Mass/Vol] 101 mg/dL 74-106 [facility] Comment on above: Fasting Glucose resu lt from 100 to 125 mg/dL suggests IMPAIRED HOMEOSTASIS per A.D.A. criteria. Hemoglobin (Bld) [Mass/Vol] 12.9 g/dL 12.0-15.0 [facility] Monocytes/100 WBC (Bld) 9.4 % 0-10 [facility] Neutrophils (Bld) [#/Vol] 6.8 10*3/uL 2.0-7.7 [facility] Neutrophils/100 WBC (Bld) 65.9 % 47-70 [facility] Potassium [Moles/Vol] 4.4 mmol/L 3.5-5.1 [facility] Sodium [Moles/Vol] 138 mmol/L 136-145 [facility] WBC (Bld) [#/Vol] 10.3 10*3/uL 4.4-11.0 [place] [facility] Determination of erythrocyte mean corpuscular volume (MCV)Ordered By: Janett Her on 10-02-2023 MCV (RBC) [Entitic vol] 93.2 fL 81-99 [facility] ED NOTEon 10-02-2023 ED NOTE HNO ID: [id number] Author: RHONDA JOHANSEN, RN Service: ? Author Type: Registered Nurse Type: ED Notes Filed: 10/02/2023 22:40 Note Text: [facility]: Expected time: Means of arrival: Comments: [place]; Head bleed Normal [facility] ED PROV NOTEon 10-02-2023 ED PROV NOTE HNO ID: [id number] Author: GRZEGORZ BEEBE DO Service: Emergency Medicine Author Type: Physician Type: ED Provider Notes Filed: 10/02/2023 23:16 Note Text: TEACHING ATTESTATION: I personally saw and examined the patient. I reviewed the resident?s note. I agree with the resident?s assessment and plan unless otherwise noted. 88-year-old female presents to the emergency department with head injury and subarachnoid hemorrhage after hitting her head on the ice. She denies loss of consciousness but was transferred secondary to subarachnoid hemorrhage bilaterally. Seen with Dr. Beard, resident physician, please see his note for full history and physical exam. I agree with the above without significant change. Vitals are stable. No focal neurologic deficits. Patient will be seen by the trauma service as well as the neurosurgical service. Anticipate admission as well as repeat CT head. GRZEGORZ ROTH 10/02/23 2316 Normal [facility] ED PROV NOTE HNO ID: [id number] Author: GRZEGORZ BEEBE DO Service: Emergency Medicine Author Type: Physician Type: ED Provider Notes Filed: 10/05/2023 23:47 Note Text: ED Provider Note Patient Name: Geoffrey Nassar : 1935 SERVICE DATE: 10/02/23 History Patient presents with: Head Injury: Patient arrives via EMS as a transfer from [place] for known head bleed. States she lost her balance while at her mailbox and fell, hitting her head on the street. Found to have multiple bilateral SAH. Patient arrives with a LIGHT. Patient is an 88-year-old female with past medical history significant for diverticulosis, hypertension, asthma, umbilical hernia, GERD, hypothyroidism, degenerative disc disease of the lumbar spine, tubular adenoma of the colon, who presents to the emergency department as a transfer from [place] for a known subarachnoid hemorrhage. Patient is answering questions appropriately and cooperative on my examination. She states that she was walking in her driveway, reached to waste picker the twig, and slipped and fell. When she fell she struck the backside of her head. She denied any loss of consciousness at that time. She denies any prodromal symptoms prior to the event. Denies any chest pain, shortness of breath, abdominal pain, hematuria, dysuria. Upon my evaluation, patient compliant patient is only complaining of a very mild headache. PAST MEDICAL HISTORY Diagnosis Date Bradycardia 01/18/2021 Bronchiectasis without complication (HCC) 11/27/2009 Dr. Jaswant Miller, pulmonary. 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 Diverticulosis of small intestine (without mention of hemorrhage) Enthesopathy of hip region 07/08/2011 Essential hypertension 05/25/2008 Extrinsic asthma 01/29/2006 Family history of malignant neoplasm of gastrointestinal tract liver cancer Foraminal stenosis of cervical region 01/30/2012 Gait disturbance 01/29/2017 Gastroesophageal reflux disease with esophagitis 05/13/2013 HERNIA UMBILICAL 12/19/2005 Hypothyroidism 03/17/2005 Irritable bowel syndrome with both constipation and diarrhea 09/23/2016 Oral murray 10/29/2020 Pacemaker 07/25/2021 Pulmonary embolism with acute cor pulmonale (HCC) 11/24/2016 She was initially thought to have a NSTEMI, but was found to be a PE with Right Strain and NOT a NSTEMI. Pulmonary nodule 01/08/2017 Tubular adenoma of colon 12/29/2017 PAST SURGICAL HISTORY Procedure Laterality Date CHOLECYSTECTOMY 1998 COLONOSCOPY FLX DX W/COLLJ SPEC WHEN PFRMD 12/18/2005 COLONOSCOPY FLX DX W/COLLJ SPEC WHEN PFRMD 09/17/2011 COLONOSCOPY FLX DX W/COLLJ SPEC WHEN PFRMD 11/30/2017 Colonoscopy - adenomatous polyp-5 year follow-up EGD 05/29/2017 LASER IRIDOPLASTY OS (LEFT EYE) Left LASER IRIDOTOMY OD (RIGHT EYE) Right PACEMAKER INSERTSION 05/29/2021 dual lead PAST SURGICAL HISTORY OF 09/2007 jacinto eyelid removal dropping skin PAST SURGICAL HISTORY OF Bilateral 11/24/2011 cataract removal 11/19/11, 11/24/11 SLING OPER STRES INCONTINENCE 2005 TONSILLECTOMY HX 195 VAG HYST 250 GM/< W/RMVL TUBEAND/OVARY 1996 uterine prolapse, hyst. bilateral oophorectomy VITRECTOMY MECHANICAL PARS PLANA Left FAMILY HISTORY Problem Relation Age of Onset Cancer Mother Arthritis Mother Kidney Disease Mother Cancer Father lung Social History Tobacco Use Smoking status: Former Packs/day: 0.50 Years: 10.00 Additional pack years: 0.00 Total pack years: 5.00 Types: Cigarettes Quit date: 05/14/1965 Years since quittin.4 Smokeless tobacco: Never Vaping Use Vaping Use: Never used Substance and Sexual Activity Alcohol use: Yes Comment: 1/2 glass of wine twice per month Drug use: No Sexual activity: Yes Partners: Male ALLERGIES Allergen Reactions Shellfish Containin* Unknown Penicillamine Unknown Benadryl [Diphenhyd* Rash Cats Cipro [Ciprofloxaci* Itching Dust Ketamine Unknown Mold Penicillins Rash Shellfish Shortness of Breath Spiriva With Handih* Intolerance not help Sulfa (Sulfonamide * GI Upset Symbicort [Budesoni* Intolerance tremor,shaky Tetanus Toxoid Adso* Intolerance arm swell Review of Systems Reason unable to perform ROS: See HPI. Constitutional: Negative for fatigue and fever. HENT: Negative for congestion. Eyes: Negative for visual disturbance. Respiratory: Negative for cough and shortness of breath. Cardiovascular: Negative for chest pain. Gastrointestinal: Negative for abdominal pain, diarrhea, nausea and vomiting. Genitourinary: Negative for dysuria, flank pain and hematuria. Musculoskeletal: Negative for back pain and myalgias. Skin: Negative for rash. Neurological: Positive for headaches. Negative for dizziness and weakness. Psychiatric/Behaviora l: Negative for behavioral problems and suicidal ideas. Physical Exam Vitals [10/02/235] B (more content not included)... Normal [facility] Erythrocyte distribution wid th ratioOrdered By: Janett Her on 10-02-2023 Erythrocyte distribution width (RBC) [Ratio] 14.2 % 11.6-14.6 [facility] Erythrocyte distribution wid th standard deviationOrdered By: Janett Her on 10-02-2023 Erythrocyte distribution width (RBC) [Entitic vol] 48.6 fL 35.1-43.9 [facility] Hematocrit Auto (Bld) [Volum e fraction]Ordered By: Janett Her on 10-02-2023 Hematocrit (Bld) [Volume fraction] 41.3 % 37-47 [facility] Immature granulocytes/100 WB C Auto (Bld)Ordered By: Janett Her on 10-02-2023 Immature granulocytes/100 WBC (Bld) 0.700 % 0.0-0.9 [facility] Comment on above: IG% - Immature Granu locytes (promyelocytes, myelocytes and metamyelocytes) > 1% indicates that a LEFT SHIFT is Present. Laboratory - Chemistry and C hemistry - challengeOrdered By: Janett Her on 10-02-2023 CO2 [Moles/Vol] 29.0 mmol/L 21.0-32.0 [facility] Urea nitrogen/Creatinine [Mass ratio] 26.2 mg/mg 10-20 [facility] Laboratory - CoagulationOrde red By: Janett Her on 10-02-2023 PT Coag (PPP) [Time] 12.8 s 11.7-14.9 [facility] Laboratory - Hematology and Cell countsOrdered By: Janett Her on 10-02-2023 MCH (RBC) [Entitic mass] 29.1 pg 27.0-32.0 [facility] MCHC (RBC) [Mass/Vol] 31.2 g/dL 32-36 [facility] Nucleated RBC/100 WBC (Bld) [Ratio] 0 % 0-5 [facility] Platelets (Bld) [#/Vol] 228 10*3/uL 150-450 [facility] No Panel InformationOrdered By: Janett Her on 10-02-2023 Estimated GFR (MDRD) Amer 78 mL/min >60 [facility] Comment on above: GFR Calc Estimated GFR (MDRD) Non-Af Amer 65 mL/min >60 [facility] Comment on above: Non- GFR Calc Platelet mean volume Jovan-Ec ker (Bld) [Entitic vol]Ordered By: Janett Her on 10-02-2023 Platelet mean volume (Bld) [Entitic vol] 9.9 fL 6.2-12.0 [facility] RBC Auto (Bld) [#/Vol]Ordere d By: Janett Her on 10-02-2023 RBC (Bld) [#/Vol] 4.43 10*6/uL 4.2-5.4 [facility] Serum or plasma calcium jose urement (mass/volume)Ordered By: Janett Her on 10-02-2023 Calcium [Mass/Vol] 9.5 mg/dL 8.5-10.1 [facility] Serum or plasma creatinine m easurement (mass/volume)Ordered By: Janett Her on 10-02-2023 Creatinine [Mass/Vol] 0.88 mg/dL 0.55-1.02 [facility] Comment on above: The validity of the calculated GFR & GFRAA in patients over 70 years has not been determined. Clinical correlation is essential. Serum or plasma urea nitroge n measurement (mass/volume)Ordered By: Janett Her on 10-02-2023 Urea nitrogen [Mass/Vol] 23 mg/dL 7-18 [facility] Thin prep Papanicolaou smear with manual screeningOrdered By: Janett Her on 10-02-2023 Thin prep Papanicolaou smear with manual screening 2 5-15 [facility] SOPHIE DIAG W ALEISHA LEFTon 08-04 [facility] SOPHIE SCREENINGon 07-07-2023 [facility] Absolute lymphocyte countOrd ered By: Amanda Daugherty on 05-05-2023 Lymphocytes Auto (Unsp spec) [#/Vol] 1.71 10*3/uL 0.83-4.51 [facility] Basophil percentageOrdered B y: Amanda Daugherty on 05-05-2023 Basophils/100 WBC (Bld) 0.7 % 0-1 [facility] Bilirubin [Mass/Vol] 0.20 mg/dL 0.20-1.00 [facility] Comment on above: For patients on eltr ombopag therapy, use of Dimension [place] TBIL is not recommended. Chloride [Moles/Vol] 107 mmol/L 98-107 [facility] Eosinophils/100 WBC (Bld) 6.7 % 0-5 [facility] Glucose [Mass/Vol] 88 mg/dL 74-106 [facility] Neutrophils (Bld) [#/Vol] 4.3 10*3/uL 2.0-7.7 [facility] Neutrophils/100 WBC (Bld) 57.4 % 47-70 [facility] Potassium [Moles/Vol] 4.9 mmol/L 3.5-5.1 [facility] Protein [Mass/Vol] 7.1 g/dL 6.4-8.2 [facility] Sodium [Moles/Vol] 140 mmol/L 136-145 [facility] WBC (Bld) [#/Vol] 7.5 10*3/uL 4.4-11.0 [facility] Blood erythrocytes count (nu mber/volume)Ordered By: Amanda Daugherty on 05-05-2023 RBC (Bld) [#/Vol] 4.52 10*6/uL 4.2-5.4 [facility] Blood hemoglobin measurement (mass/volume)Ordered By: Amanda Daugherty on 05-05-2023 Hemoglobin (Bld) [Mass/Vol] 13.1 g/dL 12.0-15.0 [facility] Blood lymphocytes/100 leukoc ytesOrdered By: Amanda Daugherty on 05-05-2023 Lymphocytes/100 WBC (Bld) 22.8 % 19-41 [facility] Blood monocytes/100 leukocyt esOrdered By: Amanda Daugherty on 05-05-2023 Monocytes/100 WBC (Bld) 11.7 % 0-10 [facility] Blood platelet mean volumeOr dered By: Amanda Daugherty on 05-05-2023 Platelet mean volume (Bld) [Entitic vol] 10.4 fL 6.2-12.0 [facility] Determination of erythrocyte mean corpuscular volume (MCV)Ordered By: Amanda Daugherty on 05-05-2023 MCV (RBC) [Entitic vol] 95.1 fL 81-99 [facility] Hematocrit Auto (Bld) [Volum e fraction]Ordered By: Amanda Daugherty on 05-05-2023 Hematocrit (Bld) [Volume fraction] 43.0 % 37-47 [facility] Laboratory - Chemistry and C hemistry - challengeOrdered By: Amanda Daugherty on 05-05-2023 ALP [Catalytic activity/Vol] 128 U/L 45-117 [facility] ALT [Catalytic activity/Vol] 17 U/L 13-56 [facility] CO2 [Moles/Vol] 29.0 mmol/L 21.0-32.0 [facility] Free T4 [Mass/Vol] 1.01 ng/dL 0.76-1.46 [facility] Globulin (S) [Mass/Vol] 3.8 g/dL 2.2-4.2 [facility] Urea nitrogen/Creatinine [Mass ratio] 22.6 mg/mg 10-20 [facility] Laboratory - Hematology and Cell countsOrdered By: Amanda Daugherty on 05-05-2023 Erythrocyte distribution width (RBC) [Entitic vol] 49.0 fL 35.1-43.9 [facility] Erythrocyte distribution width (RBC) [Ratio] 14.1 % 11.6-14.6 [facility] Immature granulocytes/100 WBC (Bld) 0.700 % 0.0-0.9 [facility] Comment on above: IG% - Immature Granu locytes (promyelocytes, myelocytes and metamyelocytes) > 1% indicates that a LEFT SHIFT is Present. MCH (RBC) [Entitic mass] 29.0 pg 27.0-32.0 [facility] Nucleated RBC/100 WBC (Bld) [Ratio] 0 % 0-5 [facility] MCHC Auto (RBC) [Mass/Vol]Or dered By: Amanda Daugherty on 05-05-2023 MCHC (RBC) [Mass/Vol] 30.5 g/dL 32-36 [facility] No Panel InformationOrdered By: Amanda Daugherty on 05-05-2023 Estimated GFR (MDRD) Amer 74 mL/min >60 [facility] Comment on above: GFR Calc Estimated GFR (MDRD) Non-Af Amer 61 mL/min >60 [facility] Comment on above: Non- GFR Calc Free Triiodothyronine (T3) pg/dL 1.8 pg/mL 2.18-3.98 [facility] Thyroid Stimulating Hormone (TSH) 0.33 uIU/mL 0.358-3.74 [facility] Vitamin D 25-Hydroxy 68.6 ng/mL [facility] Comment on above: Vitamin D 25(OH) Sta tus Range Deficiency <20 ng/mL (50nmol/L) Insufficiency 20 - 30 ng/mL (50 - 75 nmol/L) Sufficiency 30 - 100 ng/mL (75 - 250 nmol/L) Toxicity >100 ng/mL (>250 nmol/L) Platelets bldOrdered By: Martín Daugherty on 05-05-2023 Platelets (Bld) [#/Vol] 234 10*3/uL 150-450 [facility] Serum or plasma albumin jose urement (mass/volume)Ordered By: Amanda Daugherty on 05-05-2023 Albumin [Mass/Vol] 3.3 g/dL 3.2-5.0 [facility] Serum or plasma albumin/glob ulin mass ratioOrdered By: Amanda Daugherty on 05-05-2023 Albumin/Globulin [Mass ratio] 0.9 {ratio} 0.9-2.4 [facility] Serum or plasma calcium jose urement (mass/volume)Ordered By: Amanda Daugherty on 05-05-2023 Calcium [Mass/Vol] 9.5 mg/dL 8.5-10.1 [facility] Serum or plasma creatinine m easurement (mass/volume)Ordered By: Amanda Daugherty on 05-05-2023 Creatinine [Mass/Vol] 0.93 mg/dL 0.55-1.02 [facility] Comment on above: The validity of the calculated GFR & GFRAA in patients over 70 years has not been determined. Clinical correlation is essential. Serum or plasma urea nitroge n measurement (mass/volume)Ordered By: Amanda Daugherty on 05-05-2023 Urea nitrogen [Mass/Vol] 21 mg/dL 7-18 [facility] Thin prep Papanicolaou smear with manual screeningOrdered By: Amanda Daugherty on 05-05-2023 Thin prep Papanicolaou smear with manual screening 19 U/L 15-37 [facility] Thin prep Papanicolaou smear with manual screening 4 5-15 [facility] Basophil percentageon 2021 Basophil percentage < 0.9 mg/dL 0.55-1.02 [facility] Work Phone: No Panel Informationon 08-28 Bedside Estimated GFR (eGFR) > 60.0000 mL/min >60 [facility] Work Phone: UA DIP, URINE (POC)on 2021 BILIRUBIN UA (POCT) Negative Negative [facility] CLARITY UA (POCT) Cloudy [facility] COLOR UA (POCT) Other [facility] GLUCOSE UA (POCT) Negative Negative mg/dL [facility] HEMOGLOBIN/BLOOD UA (POCT) Trace-intact Abnormal Negative [facility] KETONE UA (POCT) Negative Negative mg/dL [facility] LEUKOCYTES UA (POCT) Moderate Abnormal Negative [facility] NITRITE UA (POCT) Positive Abnormal Negative [facility] PH UA (POCT) 5.5 4.5 - 8.0 [facility] Protein Ql (U) 30 mg/dL Abnormal Negative mg/dL [facility] SPECIFIC GRAVITY UA (POCT) 1.020 1.005 - 1.030 [facility] UROBILINOGEN UA (POCT) 0.2 E.U./dL Diamond l E.U./dL [facility] XR CHEST 2V FRONTAL/LATon [facility] XR Chest PA and Lateralon IMPRESSION: No acute radiographic abnormality. Leak Patcher: PSCB Transcribe Date/Time: Jan 23 2022 3:39P Dictated by : MARY HERRON MD This examination was interpreted and the report reviewed and electronically signed by: MARY HERRON MD on Jan 23 2022 3:41PM EST ZZZ_DO_NOT_U SE_DIVISION OF RADIOLOGY * * *Final Report* * * DATE OF EXAM: Jan 23 2022 3:08PM WOX [id number] - XR CHEST 2V FRONTAL/LAT / PROCEDURE REASON: Pleurisy * * * * Physician Interpretation * * * * EXAMINATION: CHEST RADIOGRAPH (2 VIEW FRONTAL & LATERAL) CLINICAL HISTORY: Pleurisy MQ: XC2_6 EXAM DATE/TIME: 01/23/2022 3:08 PM COMPARISON: 10/22/2017 RESULT: Lines, tubes, and devices: Left cardiac pacer and leads is seen Lungs and pleura: No consolidation. No lung mass. No pleural effusion. No pneumothorax. Cardiomediastinal silhouette: Stable cardiomediastinal silhouette. Bones and soft tissues: Unremarkable. ZZZ_DO_NOT_U SE_DIVISION OF RADIOLOGY [facility] 01/23/2022 * * *Final Report* * * DATE OF EXAM: Jan 23 2022 3:08PM WOX [id number] - XR CHEST 2V FRONTAL/LAT / PROCEDURE REASON: Pleurisy * * * * Physician Interpretation * * * * EXAMINATION: CHEST RADIOGRAPH (2 VIEW FRONTAL & LATERAL) CLINICAL HISTORY: Pleurisy MQ: XC2_6 EXAM DATE/TIME: 01/23/2022 3:08 PM COMPARISON: 10/22/2017 RESULT: Lines, tubes, and devices: Left cardiac pacer and leads is seen Lungs and pleura: No consolidation. No lung mass. No pleural effusion. No pneumothorax. Cardiomediastinal silhouette: Stable cardiomediastinal silhouette. Bones and soft tissues: Unremarkable. IMPRESSION IMPRESSION: No acute radiographic abnormality. Leak Patcher: PSCB Transcribe Date/Time: Jan 23 2022 3:39P Dictated by : MARY HERRON MD This examination was interpreted and the report reviewed and electronically signed by: MARY HERRON MD on Jan 23 2022 3:41PM EST [facility] Radiology Study observation (narrative) [facility] XR Chest PA and LateralOrder ed By: [facility] Provider on 01-23-2022 [facility] Office Visit: acute- worseni ng coughon 07-27-2017 Alcoholism counseling (procedure) no Invalid Interpretation Code [facility] Work Phone: Dietary management education, guidance, and counseling (procedure) yes Invalid Interpretation Code [facility] Work Phone: Documentation of current medications (procedure) Done Invalid Interpretation Code [facility] Work Phone: Tobacco smoking status NHIS Never Invalid Interpretation Code [facility] Work Phone: Tobacco use [facility] Former smoker Invalid Interpretation Code [facility] Work Phone: Office Visit: HX PE, asthma, bronchiectasis & asthmaon 07-24-2017 Alcoholism counseling (procedure) no Invalid Interpretation Code [facility] Work Phone: Dietary management education, guidance, and counseling (procedure) yes Invalid Interpretation Code [facility] Work Phone: Documentation of current medications (procedure) Done Invalid Interpretation Code [facility] Work Phone: Tobacco smoking status NHIS Never Invalid Interpretation Code [facility] Work Phone: Tobacco use [facility] Former smoker Invalid Interpretation Code [facility] Work Phone: Office Visit: hiatal herniao n 05-05-2017 Fall risk assessment No Invalid Interpretation Code [facility] Work Phone: Lab Report: Thyroid Stim Hor dada (TSH)on 03-05-2017 Thyroid stimulating hormone (TSH) 0.39 u[iU]/mL Invalid Interpretation Code 0.358-3.74 [facility] Work Phone: Rx Refill: eRx Request for F LUTICASONE PROPIONATE 50 MCG/ACT Suspensionon 02-05-2017 [id number]`FLUTICASONE PROPIONATE 50 MCG/ACT Suspension```48 Gram`90`USE 2 SPRAYS IN EACH NOSTRIL EVERY DAY``4`0`11/27/2016`N o date sent`[facility]*`[id number]`FLUTICAS ONE PROPIONATE 50 MCG/ACT Suspension Quantity: 48 Gram Instructions: USE 2 SPRAYS IN EACH NOSTRIL EVERY DAY [facility] Work Phone: No Panel Information [facility] Vital Signs Date Time Vital Sign Value Performing Clinician Facility 03-02-2025 11:49-0400 Body mass index (BMI) [Ratio] 27.9 kg/m2 Ken Contreras MD Work Phone: [facility] 03-02-2025 11:49-0400 Body weight 71.7 kg Ken Contreras MD Work Phone: [facility] 03-02-2025 11:49-0400 Diastolic blood pressure 68 mm[Hg] Ken Contreras MD Work Phone: [facility] 03-02-2025 11:49-0400 Heart rate 64 /min Ken Contreras MD Work Phone: [facility] 03-02-2025 11:49-0400 Respiratory rate 20 /min Ken Contreras MD Work Phone: [facility] 03-02-2025 11:49-0400 Systolic blood pressure 102 mm[Hg] Ken Contreras MD Work Phone: [facility] 02-15-2025 17:49-0400 Body temperature 98.2 [degF] Dr. Ken Contreras MD Work Phone: [facility] 02-15-2025 17:49-0400 Diastolic blood pressure 68 mm[Hg] Dr. Ken Contreras MD Work Phone: [facility] 02-15-2025 17:49-0400 Heart rate 61 /min Dr. Ken Contreras MD Work Phone: [facility] 02-15-2025 17:49-0400 Respiratory rate 18 /min Dr. Ken Contreras MD Work Phone: [facility] 02-15-2025 17:49-0400 SaO2% (BldA) [Mass fraction] 96 % Dr. Ken Contreras MD Work Phone: [facility] 02-15-2025 17:49-0400 Systolic blood pressure 116 mm[Hg] Dr. Ken Contreras MD Work Phone: [facility] 02-15-2025 16:03-0400 Body mass index (BMI) [Ratio] 31.1 kg/m2 Dr. Ken Contreras MD Work Phone: [facility] 02-15-2025 16:03-0400 Body weight 77.[address] Ken Contreras MD Work Phone: [facility] 02-15-2025 14:14-0400 Body height 157.[address] Ken Contreras MD Work Phone: [facility] 02-03-2025 14:51-0400 Body height 160.3 cm Pulm Wstr Work Phone: [facility] 02-03-2025 14:51-0400 Body mass index (BMI) [Ratio] 28.6 kg/m2 Pulm Wstr Work Phone: [facility] 02-03-2025 14:51-0400 Body weight 73.48 kg Pulm Wstr Work Phone: [facility] 02-03-2025 14:51-0400 Heart rate 74 /min Pulm Wstr Work Phone: [facility] 02-03-2025 14:51-0400 Respiratory rate 14 /min Pulm Wstr Work Phone: [facility] 02-02-2025 15:40-0400 Body mass index (BMI) [Ratio] 29.48 kg/m2 Ken Contreras MD Work Phone: [facility] 02-02-2025 15:40-0400 Body weight 73.1 kg Ken Contreras MD Work Phone: [facility] 02-02-2025 15:40-0400 Diastolic blood pressure 74 mm[Hg] Ken Contreras MD Work Phone: [facility] 02-02-2025 15:40-0400 Heart rate 60 /min Ken Contreras MD Work Phone: [facility] 02-02-2025 15:40-0400 Respiratory rate 18 /min Ken Contreras MD Work Phone: [facility] 02-02-2025 15:40-0400 Systolic blood pressure 104 mm[Hg] Ken Contreras MD Work Phone: [address]07-2025 15:28-0400 Diastolic blood pressure 56 mm[Hg] Ailyn Spanower TITLE INSURANCE SALES REPRESENTATIVE.MICROBIOLOGICAL LABORATORY TECHNICIAN Work Phone: [facility] 01-11-2025 15:28-0400 Heart rate 60 /min Ailyn Spanower TITLE INSURANCE SALES REPRESENTATIVE.MICROBIOLOGICAL LABORATORY TECHNICIAN Work Phone: [facility] 01-11-2025 15:28-0400 Respiratory rate 16 /min Ailyn Spanower TITLE INSURANCE SALES REPRESENTATIVE.MICROBIOLOGICAL LABORATORY TECHNICIAN Work Phone: [facility] 01-11-2025 15:28-0400 SaO2% (BldA) [Mass fraction] 95 % Ailyn Spanower TITLE INSURANCE SALES REPRESENTATIVE.MICROBIOLOGICAL LABORATORY TECHNICIAN Work Phone: [facility] 01-11-2025 15:28-0400 Systolic blood pressure 90 mm[Hg] Ailyn Spanower TITLE INSURANCE SALES REPRESENTATIVE.MICROBIOLOGICAL LABORATORY TECHNICIAN Work Phone: [facility] 01-05-2025 15:38-0400 Body height 157.5 cm Ken Contreras MD Work Phone: [facility] 01-05-2025 15:38-0400 Body mass index (BMI) [Ratio] 30.08 kg/m2 Ken Contreras MD Work Phone: [facility] 01-05-2025 15:38-0400 Body weight 74.6 kg Ken Contreras MD Work Phone: [facility] 01-05-2025 15:38-0400 Diastolic blood pressure 66 mm[Hg] Ken Contreras MD Work Phone: [facility] 01-05-2025 15:38-0400 Heart rate 60 /min Ken Contreras MD Work Phone: [facility] 01-05-2025 15:38-0400 Respiratory rate 18 /min Ken Contreras MD Work Phone: [facility] 01-05-2025 15:38-0400 Systolic blood pressure 118 mm[Hg] Ken Contreras MD Work Phone: [facility] 12-14-2024 14:03-0400 Diastolic blood pressure 72 mm[Hg] Cami Mars MD Work Phone: [facility] 12-14-2024 14:03-0400 Heart rate 72 /min Cami Mars MD Work Phone: [facility] 12-14-2024 14:03-0400 Respiratory rate 16 /min Cami Mars MD Work Phone: [facility] 12-14-2024 14:03-0400 SaO2% (BldA) [Mass fraction] 96 % Cami Mars MD Work Phone: [facility] 12-14-2024 14:03-0400 Systolic blood pressure 116 mm[Hg] Cami Mars MD Work Phone: [facility] 11-24-2024 17:54-0400 Body mass index (BMI) [Ratio] 31.01 kg/m2 Ken Contreras MD Work Phone: [facility] 11-24-2024 17:54-0400 Body weight 76.9 kg Ken Contreras MD Work Phone: [facility] 11-24-2024 17:54-0400 Diastolic blood pressure 59 mm[Hg] Ken Contreras MD Work Phone: [facility] 11-24-2024 17:54-0400 Heart rate 75 /min Ken Contreras MD Work Phone: [facility] 11-24-2024 17:54-0400 Respiratory rate 16 /min Ken Contreras MD Work Phone: [facility] 11-24-2024 17:54-0400 Systolic blood pressure 116 mm[Hg] Ken Contreras MD Work Phone: [facility] 10-20-2024 13:29-0500 Body mass index (BMI) [Ratio] 30.73 kg/m2 Ashely Miller MD Work Phone: [facility] 10-20-2024 13:29-0500 Body weight 76.2 kg Ashely Miller MD Work Phone: [facility] 10-20-2024 13:29-0500 Diastolic blood pressure 80 mm[Hg] Ashely Miller MD Work Phone: [facility] 10-20-2024 13:29-0500 Heart rate 60 /min Ashely Miller MD Work Phone: [facility] 10-20-2024 13:29-0500 Respiratory rate 14 /min Ashely Miller MD Work Phone: [facility] 10-20-2024 13:29-0500 SaO2% (BldA) [Mass fraction] 96 % Ashely Miller MD Work Phone: [facility] 10-20-2024 13:29-0500 Systolic blood pressure 126 mm[Hg] Ashely Miller MD Work Phone: [facility] 10-11-2024 14:40-0500 Body mass index (BMI) [Ratio] 30.85 kg/m2 Dia Hussain TITLE INSURANCE SALES REPRESENTATIVE.MICROBIOLOGICAL LABORATORY TECHNICIAN Work Phone: [facility] 10-11-2024 14:40-0500 Body weight 76.5 kg Dia Hussain TITLE INSURANCE SALES REPRESENTATIVE.MICROBIOLOGICAL LABORATORY TECHNICIAN Work Phone: [facility] 10-11-2024 14:40-0500 Diastolic blood pressure 72 mm[Hg] Dia Hussain TITLE INSURANCE SALES REPRESENTATIVE.MICROBIOLOGICAL LABORATORY TECHNICIAN Work Phone: [facility] 10-11-2024 14:40-0500 Heart rate 58 /min Dia Hussain TITLE INSURANCE SALES REPRESENTATIVE.MICROBIOLOGICAL LABORATORY TECHNICIAN Work Phone: [facility] 10-11-2024 14:40-0500 Respiratory rate 16 /min Dia Hussain TITLE INSURANCE SALES REPRESENTATIVE.MICROBIOLOGICAL LABORATORY TECHNICIAN Work Phone: [facility] 10-11-2024 14:40-0500 SaO2% (BldA) [Mass fraction] 96 % Dia Hussain TITLE INSURANCE SALES REPRESENTATIVE.MICROBIOLOGICAL LABORATORY TECHNICIAN Work Phone: [facility] 10-11-2024 14:40-0500 Systolic blood pressure 120 mm[Hg] Dia Hussain TITLE INSURANCE SALES REPRESENTATIVE.MICROBIOLOGICAL LABORATORY TECHNICIAN Work Phone: [facility] 09-05-2024 20:00-0500 Body temperature 98.4 [degF] Dr. Ken Contreras MD Work Phone: [facility] 09-05-2024 20:00-0500 Diastolic blood pressure 92 mm[Hg] Dr. Ken Contreras MD Work Phone: 1(665)395-852794 [place] [address] 09-05-2024 20:00-0500 Heart rate 62 /min Dr. Ken Contreras MD Work Phone: 9(164)031-010926 [place] [address] 09-05-2024 20:00-0500 Respiratory rate 16 /min Dr. Ken Contreras MD Work Phone: 6(989)999-431626 [place] [address] 09-05-2024 20:00-0500 SaO2% (BldA) [Mass fraction] 98 % Dr. Ken Contreras MD Work Phone: 5(370)155-737294 [place] [address] 09-05-2024 20:00-0500 Systolic blood pressure 146 mm[Hg] Dr. Ken Contreras MD Work Phone: 0(620)807-237426 [place] [address] 09-05-2024 17:11-0500 Body height 157.[address] Ken Contreras MD Work Phone: 3(667)651-407426 [place] [address] 09-05-2024 17:11-0500 Body mass index (BMI) [Ratio] 31.4 kg/m2 Dr. Ken Contreras MD Work Phone: 5(528)774-273326 [place] [address] 09-05-2024 17:11-0500 Body weight 77.[address] Ken Contreras MD Work Phone: 4(118)526-096326 [place] [address] 08-08-2024 18:31-0500 Body temperature 97.2 [degF] Dr. Ken Contreras MD Work Phone: 7(544)992-565226 [place] [address] 08-08-2024 18:31-0500 Diastolic blood pressure 73 mm[Hg] Dr. Ken Contreras MD Work Phone: 2(226)134-209926 [place] [address] 08-08-2024 18:31-0500 Heart rate 59 /min Dr. Ken Contreras MD Work Phone: [facility] 08-08-2024 18:31-0500 Respiratory rate 18 /min Dr. Ken Contreras MD Work Phone: [facility] 08-08-2024 18:31-0500 SaO2% (BldA) [Mass fraction] 96 % Dr. Ken Contreras MD Work Phone: [facility] 08-08-2024 18:31-0500 Systolic blood pressure 118 mm[Hg] Dr. Ken Contreras MD Work Phone: [facility] 08-08-2024 14:48-0500 Body mass index (BMI) [Ratio] 31.2 kg/m2 Dr. Ken Contreras MD Work Phone: [facility] 08-08-2024 14:48-0500 Body weight 77.[address] Ken Contreras MD Work Phone: [facility] 07-08-2024 10:20-0400 Body mass index (BMI) [Ratio] 31.29 kg/m2 Jyotsna Charanjit TITLE INSURANCE SALES REPRESENTATIVE.MICROBIOLOGICAL LABORATORY TECHNICIAN Work Phone: [facility] 07-08-2024 10:20-0400 Body weight 77.6 kg Jyotsna Charanjit TITLE INSURANCE SALES REPRESENTATIVE.MICROBIOLOGICAL LABORATORY TECHNICIAN Work Phone: [facility] 07-08-2024 10:20-0400 Diastolic blood pressure 82 mm[Hg] Jyotsna Charanjit TITLE INSURANCE SALES REPRESENTATIVE.MICROBIOLOGICAL LABORATORY TECHNICIAN Work Phone: [facility] 07-08-2024 10:20-0400 Heart rate 64 /min Jyotsna Charanjit TITLE INSURANCE SALES REPRESENTATIVE.MICROBIOLOGICAL LABORATORY TECHNICIAN Work Phone: [facility] 07-08-2024 10:20-0400 Respiratory rate 18 /min Jyotsna Charanjit TITLE INSURANCE SALES REPRESENTATIVE.MICROBIOLOGICAL LABORATORY TECHNICIAN Work Phone: [facility] 07-08-2024 10:20-0400 SaO2% (BldA) [Mass fraction] 94 % Jyotsna Charanjit TITLE INSURANCE SALES REPRESENTATIVE.MICROBIOLOGICAL LABORATORY TECHNICIAN Work Phone: [facility] 07-08-2024 10:20-0400 Systolic blood pressure 127 mm[Hg] Jyotsna Charanjit TITLE INSURANCE SALES REPRESENTATIVE.MICROBIOLOGICAL LABORATORY TECHNICIAN Work Phone: [facility] 07-06-2024 14:41-0400 Diastolic blood pressure 82 mm[Hg] Ailyn Spanower TITLE INSURANCE SALES REPRESENTATIVE.MICROBIOLOGICAL LABORATORY TECHNICIAN Work Phone: [facility] 07-06-2024 14:41-0400 Heart rate 63 /min Ailyn Spanower TITLE INSURANCE SALES REPRESENTATIVE.MICROBIOLOGICAL LABORATORY TECHNICIAN Work Phone: [facility] 07-06-2024 14:41-0400 Respiratory rate 16 /min Ailyn Spanower TITLE INSURANCE SALES REPRESENTATIVE.MICROBIOLOGICAL LABORATORY TECHNICIAN Work Phone: [facility] 07-06-2024 14:41-0400 SaO2% (BldA) [Mass fraction] 93 % Ailyn Spanower TITLE INSURANCE SALES REPRESENTATIVE.MICROBIOLOGICAL LABORATORY TECHNICIAN Work Phone: [facility] 07-06-2024 14:41-0400 Systolic blood pressure 118 mm[Hg] Ailyn Spanower TITLE INSURANCE SALES REPRESENTATIVE.MICROBIOLOGICAL LABORATORY TECHNICIAN Work Phone: [facility] 05-27-2024 08:21-0400 Diastolic blood pressure 80 mm[Hg] Ken Contreras MD Work Phone: [facility] 05-27-2024 08:21-0400 Systolic blood pressure 130 mm[Hg] Ken Contreras MD Work Phone: [facility] 05-27-2024 08:18-0400 Body mass index (BMI) [Ratio] 30.81 kg/m2 Ken Contreras MD Work Phone: [facility] 05-27-2024 08:18-0400 Body weight 76.4 kg Ken Contreras MD Work Phone: [facility] 05-27-2024 08:18-0400 Heart rate 64 /min Ken Contreras MD Work Phone: [facility] 05-27-2024 08:18-0400 Respiratory rate 18 /min Ken Contreras MD Work Phone: [facility] 05-26-2024 15:00-0400 Diastolic blood pressure 67 mm[Hg] Jackie Lainez PT [facility] 05-26-2024 15:00-0400 Heart rate 60 /min Jackie Lainez PT [facility] 05-26-2024 15:00-0400 SaO2% (BldA) [Mass fraction] 92 % Jackie Lainez PT [facility] 05-26-2024 15:00-0400 Systolic blood pressure 116 mm[Hg] Jackie Lainez PT [facility] 05-20-2024 11:00-0400 SaO2% (BldA) [Mass fraction] 89 % Kaela Brasher PTA Work Phone: [facility] Comment on above: at start of session, recovered to 98 aft er 2 minutes 05-13-2024 09:44-0400 Body mass index (BMI) [Ratio] 31.21 kg/m2 Dia Lopez APRN.MICROBIOLOGICAL LABORATORY TECHNICIAN Work Phone: [facility] 05-13-2024 09:44-0400 Body weight 77.4 kg Dia Lopez APRN.MICROBIOLOGICAL LABORATORY TECHNICIAN Work Phone: [facility] 05-13-2024 09:44-0400 Diastolic blood pressure 72 mm[Hg] Dia Lopez APRN.MICROBIOLOGICAL LABORATORY TECHNICIAN Work Phone: [facility] 05-13-2024 09:44-0400 Heart rate 62 /min Dia Lopez APRN.MICROBIOLOGICAL LABORATORY TECHNICIAN Work Phone: [facility] 05-13-2024 09:44-0400 Respiratory rate 18 /min Dia Lopez APRN.MICROBIOLOGICAL LABORATORY TECHNICIAN Work Phone: [facility] 05-13-2024 09:44-0400 SaO2% (BldA) [Mass fraction] 95 % Dia Lopez APRN.MICROBIOLOGICAL LABORATORY TECHNICIAN Work Phone: [facility] 05-13-2024 09:44-0400 Systolic blood pressure 124 mm[Hg] Dia Lopez APRN.MICROBIOLOGICAL LABORATORY TECHNICIAN Work Phone: [facility] 05-12-2024 11:00-0400 SaO2% (BldA) [Mass fraction] 97 % Kaela Brasher PTA Work Phone: [facility] 04-26-2024 15:00-0400 Diastolic blood pressure 78 mm[Hg] Jackie Lainez PT [facility] 04-26-2024 15:00-0400 Heart rate 70 /min Jackie Lainez PT [facility] 04-26-2024 15:00-0400 SaO2% (BldA) [Mass fraction] 95 % Jackie Lainez PT [facility] 04-26-2024 15:00-0400 Systolic blood pressure 113 mm[Hg] Jackie Lainez PT [facility] 04-18-2024 08:05-0400 Body mass index (BMI) [Ratio] 31.31 kg/m2 Kaya Cartwright Jr., MD Work Phone: [facility] 04-18-2024 08:05-0400 Body weight 77.66 kg Kaya Cartwright Jr., MD Work Phone: [facility] 04-18-2024 08:05-0400 Diastolic blood pressure 78 mm[Hg] Kaya Cartwright Jr., MD Work Phone: [facility] 04-18-2024 08:05-0400 Heart rate 60 /min Kaya Cartwright Jr., MD Work Phone: [facility] 04-18-2024 08:05-0400 SaO2% (BldA) [Mass fraction] 95 % Kaya Cartwright Jr., MD Work Phone: [facility] 04-18-2024 08:05-0400 Systolic blood pressure 122 mm[Hg] Kaya Cartwright Jr., MD Work Phone: [facility] 03-30-2024 14:54-0400 Body height 157.5 cm Dia Lopez APRN.CNP Work Phone: [facility] 03-30-2024 14:54-0400 Body mass index (BMI) [Ratio] 30.54 kg/m2 Dia Lopez APRN.MICROBIOLOGICAL LABORATORY TECHNICIAN Work Phone: [facility] 03-30-2024 14:54-0400 Body weight 75.75 kg Dia Hussain TITLE INSURANCE SALES REPRESENTATIVE.MICROBIOLOGICAL LABORATORY TECHNICIAN Work Phone: [facility] 03-30-2024 14:54-0400 Diastolic blood pressure 72 mm[Hg] Dia Hussain TITLE INSURANCE SALES REPRESENTATIVE.MICROBIOLOGICAL LABORATORY TECHNICIAN Work Phone: [facility] 03-30-2024 14:54-0400 Heart rate 60 /min Dia Hussain TITLE INSURANCE SALES REPRESENTATIVE.MICROBIOLOGICAL LABORATORY TECHNICIAN Work Phone: [facility] 03-30-2024 14:54-0400 Respiratory rate 12 /min Dia Hussain TITLE INSURANCE SALES REPRESENTATIVE.MICROBIOLOGICAL LABORATORY TECHNICIAN Work Phone: [facility] 03-30-2024 14:54-0400 SaO2% (BldA) [Mass fraction] 95 % Dia Hussain TITLE INSURANCE SALES REPRESENTATIVE.MICROBIOLOGICAL LABORATORY TECHNICIAN Work Phone: [facility] 03-30-2024 14:54-0400 Systolic blood pressure 130 mm[Hg] Dia Hussain TITLE INSURANCE SALES REPRESENTATIVE.MICROBIOLOGICAL LABORATORY TECHNICIAN Work Phone: [facility] 01-21-2024 13:47-0400 Body height 157.5 cm Michelle Vazquez TITLE INSURANCE SALES REPRESENTATIVE.MICROBIOLOGICAL LABORATORY TECHNICIAN Work Phone: [facility] 01-21-2024 13:47-0400 Body mass index (BMI) [Ratio] 30.89 kg/m2 Michelleblanche Beasleygatbetzy TITLE INSURANCE SALES REPRESENTATIVE.MICROBIOLOGICAL LABORATORY TECHNICIAN Work Phone: [facility] 01-21-2024 13:47-0400 Body weight 76.6 kg Michelle Fegatelli TITLE INSURANCE SALES REPRESENTATIVE.MICROBIOLOGICAL LABORATORY TECHNICIAN Work Phone: [facility] 01-21-2024 13:47-0400 Diastolic blood pressure 75 mm[Hg] Michelle Fegatelli TITLE INSURANCE SALES REPRESENTATIVE.MICROBIOLOGICAL LABORATORY TECHNICIAN Work Phone: [facility] 01-21-2024 13:47-0400 Heart rate 59 /min Michelleblanche Beasleygatelli TITLE INSURANCE SALES REPRESENTATIVE.MICROBIOLOGICAL LABORATORY TECHNICIAN Work Phone: [facility] 01-21-2024 13:47-0400 SaO2% (BldA) [Mass fraction] 92 % Michelle Fegatelli TITLE INSURANCE SALES REPRESENTATIVE.MICROBIOLOGICAL LABORATORY TECHNICIAN Work Phone: [facility] 01-21-2024 13:47-0400 Systolic blood pressure 115 mm[Hg] Michelle Fegatelli TITLE INSURANCE SALES REPRESENTATIVE.MICROBIOLOGICAL LABORATORY TECHNICIAN Work Phone: [facility] 01-06-2024 14:44-0400 Body mass index (BMI) [Ratio] 30.89 kg/m2 Ailyn Spanower TITLE INSURANCE SALES REPRESENTATIVE.MICROBIOLOGICAL LABORATORY TECHNICIAN Work Phone: [facility] 01-06-2024 14:44-0400 Body weight 76.6 kg Ailyn Spanower TITLE INSURANCE SALES REPRESENTATIVE.MICROBIOLOGICAL LABORATORY TECHNICIAN Work Phone: [facility] 01-06-2024 14:44-0400 Diastolic blood pressure 55 mm[Hg] Ailyn Spanower TITLE INSURANCE SALES REPRESENTATIVE.MICROBIOLOGICAL LABORATORY TECHNICIAN Work Phone: [facility] 01-06-2024 14:44-0400 Heart rate 60 /min Ailyn Spanower TITLE INSURANCE SALES REPRESENTATIVE.MICROBIOLOGICAL LABORATORY TECHNICIAN Work Phone: [facility] 01-06-2024 14:44-0400 SaO2% (BldA) [Mass fraction] 95 % Ailyn Spanower TITLE INSURANCE SALES REPRESENTATIVE.MICROBIOLOGICAL LABORATORY TECHNICIAN Work Phone: [facility] 01-06-2024 14:44-0400 Systolic blood pressure 122 mm[Hg] Ailyn Spanower TITLE INSURANCE SALES REPRESENTATIVE.MICROBIOLOGICAL LABORATORY TECHNICIAN Work Phone: [facility] 11-09-2023 14:23-0500 Body height 157.5 cm Tremaine Landon MD Work Phone: [facility] 11-09-2023 14:23-0500 Body weight 78.02 kg Tremaine Landon MD Work Phone: [facility] 11-09-2023 14:23-0500 Diastolic blood pressure 84 mm[Hg] Tremaine Landon MD Work Phone: [facility] 11-09-2023 14:23-0500 Heart rate 71 /min Tremaine Landon MD Work Phone: [facility] 11-09-2023 14:23-0500 Respiratory rate 16 /min Tremaine Landon MD Work Phone: [facility] 11-09-2023 14:23-0500 Systolic blood pressure 148 mm[Hg] Tremaine Landon MD Work Phone: [facility] 10-22-2023 14:36-0500 Body height 162.6 cm Michelle Fegatelli TITLE INSURANCE SALES REPRESENTATIVE.MICROBIOLOGICAL LABORATORY TECHNICIAN Work Phone: [facility] 10-22-2023 14:36-0500 Body weight 77.5 kg Michelle Fegatelli TITLE INSURANCE SALES REPRESENTATIVE.MICROBIOLOGICAL LABORATORY TECHNICIAN Work Phone: [facility] 10-22-2023 14:36-0500 Diastolic blood pressure 76 mm[Hg] Michelle Fegatelli TITLE INSURANCE SALES REPRESENTATIVE.MICROBIOLOGICAL LABORATORY TECHNICIAN Work Phone: [facility] 10-22-2023 14:36-0500 Heart rate 60 /min Michelle Fegatelli TITLE INSURANCE SALES REPRESENTATIVE.MICROBIOLOGICAL LABORATORY TECHNICIAN Work Phone: [facility] 10-22-2023 14:36-0500 Respiratory rate 16 /min Michelle Fegatelli TITLE INSURANCE SALES REPRESENTATIVE.MICROBIOLOGICAL LABORATORY TECHNICIAN Work Phone: [facility] 10-22-2023 14:36-0500 SaO2% (BldA) [Mass fraction] 95 % Michelle Fegatelli TITLE INSURANCE SALES REPRESENTATIVE.MICROBIOLOGICAL LABORATORY TECHNICIAN Work Phone: [facility] 10-22-2023 14:36-0500 Systolic blood pressure 114 mm[Hg] Michelle Fegatelli TITLE INSURANCE SALES REPRESENTATIVE.MICROBIOLOGICAL LABORATORY TECHNICIAN Work Phone: [facility] 10-14-2023 11:44-0500 Body temperature 98.6 [degF] Ken Contreras MD Work Phone: [facility] 10-14-2023 11:44-0500 Body weight 76.52 kg Ken Contreras MD Work Phone: [facility] 10-14-2023 11:44-0500 Diastolic blood pressure 66 mm[Hg] Ken Contreras MD Work Phone: [facility] 10-14-2023 11:44-0500 Heart rate 60 /min Ken Contreras MD Work Phone: [facility] 10-14-2023 11:44-0500 Respiratory rate 12 /min Ken Contreras MD Work Phone: [facility] 10-14-2023 11:44-0500 Systolic blood pressure 110 mm[Hg] Ken Contreras MD Work Phone: [facility] 10-02-2023 21:30-0500 Diastolic blood pressure 68 mm[Hg] Dr. Ken Contreras Work Phone: [facility] 10-02-2023 21:30-0500 Heart rate 60 /min Dr. Ken Contreras Work Phone: [facility] 10-02-2023 21:30-0500 Respiratory rate 15 /min Dr. Ken Contreras Work Phone: [facility] 10-02-2023 21:30-0500 SaO2% (BldA) [Mass fraction] 98 % Dr. Ken Contreras Work Phone: [facility] 10-02-2023 21:30-0500 Systolic blood pressure 160 mm[Hg] Dr. Ken Contreras Work Phone: [facility] 10-02-2023 18:51-0500 Body height 157.[address] Ken Contreras Work Phone: [facility] 10-02-2023 18:51-0500 Body temperature 97.9 [degF] Dr. Ken Contreras Work Phone: [facility] 09-30-2023 14:38-0500 Body height 158.5 cm Dia Lopez TITLE INSURANCE SALES REPRESENTATIVE.MICROBIOLOGICAL LABORATORY TECHNICIAN Work Phone: [facility] 09-30-2023 14:38-0500 Body weight 78.02 kg Dia Lopez TITLE INSURANCE SALES REPRESENTATIVE.MICROBIOLOGICAL LABORATORY TECHNICIAN Work Phone: [facility] 09-30-2023 14:38-0500 Diastolic blood pressure 78 mm[Hg] Dia Hussain TITLE INSURANCE SALES REPRESENTATIVE.MICROBIOLOGICAL LABORATORY TECHNICIAN Work Phone: [facility] 09-30-2023 14:38-0500 Heart rate 61 /min Dia Hussain TITLE INSURANCE SALES REPRESENTATIVE.MICROBIOLOGICAL LABORATORY TECHNICIAN Work Phone: [facility] 09-30-2023 14:38-0500 Respiratory rate 16 /min Dia Hussain TITLE INSURANCE SALES REPRESENTATIVE.MICROBIOLOGICAL LABORATORY TECHNICIAN Work Phone: [facility] 09-30-2023 14:38-0500 SaO2% (BldA) [Mass fraction] 97 % Dia Hussain TITLE INSURANCE SALES REPRESENTATIVE.MICROBIOLOGICAL LABORATORY TECHNICIAN Work Phone: [facility] 09-30-2023 14:38-0500 Systolic blood pressure 108 mm[Hg] Dia Hussain TITLE INSURANCE SALES REPRESENTATIVE.MICROBIOLOGICAL LABORATORY TECHNICIAN Work Phone: 2(963)519-276692 [place] [address] 08-07-2023 13:43-0500 Body mass index (BMI) [Ratio] 31.8 kg/m2 Dr. Ken Contreras Work Phone: 6(939)705-452126 [place] [address] 08-07-2023 13:43-0500 Body weight 78.[address] Ken Contreras Work Phone: 1(855)340-170526 [place] [address] 08-07-2023 13:43-0500 Diastolic blood pressure 73 mm[Hg] Dr. Ken Contreras Work Phone: 6(818)349-782426 [place] [address] 08-07-2023 13:43-0500 Heart rate 60 /min Dr. Ken Contreras Work Phone: 3(628)759-958726 [place] [address] 08-07-2023 13:43-0500 Respiratory rate 18 /min Dr. Ken Contreras Work Phone: 5(706)021-434526 [place] [address] 08-07-2023 13:43-0500 SaO2% (BldA) [Mass fraction] 97 % Dr. Ken Contreras Work Phone: 8(726)618-221726 [place] [address] 08-07-2023 13:43-0500 Systolic blood pressure 114 mm[Hg] Dr. Ken Contreras Work Phone: [facility] 05-27-2023 17:19-0400 Body height 157.[address] Ken Contreras Work Phone: [facility] 05-27-2023 17:19-0400 Body mass index (BMI) [Ratio] 32 kg/m2 Dr. Ken Contreras Work Phone: [facility] 05-27-2023 17:19-0400 Body temperature 97.5 [degF] Dr. Ken Contreras Work Phone: [facility] 05-27-2023 17:19-0400 Body weight 79.[address] Ken Contreras Work Phone: [facility] 05-27-2023 17:19-0400 Diastolic blood pressure 65 mm[Hg] Dr. Ken Contreras Work Phone: [facility] 05-27-2023 17:19-0400 Heart rate 59 /min Dr. Ken Contreras Work Phone: [facility] 05-27-2023 17:19-0400 Respiratory rate 16 /min Dr. Ken Contreras Work Phone: [facility] 05-27-2023 17:19-0400 SaO2% (BldA) [Mass fraction] 97 % Dr. Ken Contreras Work Phone: [facility] 05-27-2023 17:19-0400 Systolic blood pressure 138 mm[Hg] Dr. Ken Contreras Work Phone: [facility] 05-21-2023 13:48-0400 Body temperature 97.81 [degF] Dia Older TITLE INSURANCE SALES REPRESENTATIVE.MICROBIOLOGICAL LABORATORY TECHNICIAN Work Phone: [facility] 05-21-2023 13:48-0400 Body weight 79.88 kg Dia Older TITLE INSURANCE SALES REPRESENTATIVE.MICROBIOLOGICAL LABORATORY TECHNICIAN Work Phone: [facility] 05-21-2023 13:48-0400 Diastolic blood pressure 68 mm[Hg] Dia Older TITLE INSURANCE SALES REPRESENTATIVE.MICROBIOLOGICAL LABORATORY TECHNICIAN Work Phone: [facility] 05-21-2023 13:48-0400 Heart rate 60 /min Dia Older TITLE INSURANCE SALES REPRESENTATIVE.MICROBIOLOGICAL LABORATORY TECHNICIAN Work Phone: [facility] 05-21-2023 13:48-0400 Respiratory rate 18 /min Dia Older TITLE INSURANCE SALES REPRESENTATIVE.MICROBIOLOGICAL LABORATORY TECHNICIAN Work Phone: [facility] 05-21-2023 13:48-0400 SaO2% (BldA) [Mass fraction] 99 % Dia Older TITLE INSURANCE SALES REPRESENTATIVE.MICROBIOLOGICAL LABORATORY TECHNICIAN Work Phone: [facility] 05-21-2023 13:48-0400 Systolic blood pressure 116 mm[Hg] Dia Older TITLE INSURANCE SALES REPRESENTATIVE.MICROBIOLOGICAL LABORATORY TECHNICIAN Work Phone: [facility] 05-18-2023 17:33-0400 Diastolic blood pressure 76 mm[Hg] Dr. Ken Contreras Work Phone: [facility] 05-18-2023 17:33-0400 Heart rate 98 /min Dr. Ken Contreras Work Phone: [facility] 05-18-2023 17:33-0400 Respiratory rate 14 /min Dr. Ken Contreras Work Phone: [facility] 05-18-2023 17:33-0400 SaO2% (BldA) [Mass fraction] 98 % Dr. Ken Contreras Work Phone: [facility] 05-18-2023 17:33-0400 Systolic blood pressure 141 mm[Hg] Dr. Ken Contreras Work Phone: [facility] 05-18-2023 14:17-0400 Body height 157.[address] Ken Contreras Work Phone: [facility] 05-18-2023 14:17-0400 Body mass index (BMI) [Ratio] 34.7 kg/m2 Dr. Ken Contreras Work Phone: [facility] 05-18-2023 14:17-0400 Body temperature 96.3 [degF] Dr. Ken Contreras Work Phone: 5(003)303-853926 [place] [address] 05-18-2023 14:17-0400 Body weight 86.[address] Ken Contreras Work Phone: 0(663)608-750226 [place] [address] 05-05-2023 13:44-0400 Body height 157.[address] Ken Contreras Work Phone: 4(437)987-043226 [place] [address] 05-05-2023 13:44-0400 Body mass index (BMI) [Ratio] 31.8 kg/m2 Dr. Ken Contreras Work Phone: 3(738)631-986226 [place] [address] 05-05-2023 13:44-0400 Body weight 79.[address] Ken Contreras Work Phone: 9(799)188-679726 [place] [address] 05-05-2023 13:44-0400 Diastolic blood pressure 74 mm[Hg] Dr. Ken Contreras Work Phone: 0(797)145-410726 [place] [address] 05-05-2023 13:44-0400 Heart rate 60 /min Dr. Ken Contreras Work Phone: 4(845)647-935926 [place] [address] 05-05-2023 13:44-0400 Respiratory rate 18 /min Dr. Ken Contreras Work Phone: 9(660)605-541226 [place] [address] 05-05-2023 13:44-0400 SaO2% (BldA) [Mass fraction] 95 % Dr. Ken Contreras Work Phone: 6(408)333-042894 [place] [address] 05-05-2023 13:44-0400 Systolic blood pressure 115 mm[Hg] Dr. Ken Contreras Work Phone: 0(380)674-969126 [place] [address] 02-25-2023 06:48-0400 Body mass index (BMI) [Ratio] 31.8 kg/m2 Dr. Ken Contreras Work Phone: 4(116)365-788926 [place] [address] 02-25-2023 06:48-0400 Body temperature 97.8 [degF] Dr. Ken Contreras Work Phone: 0(112)616-806426 [place] [address] 02-25-2023 06:48-0400 Body weight 78.[address] Ken Contreras Work Phone: 7(048)190-270926 [place] [address] 02-25-2023 06:48-0400 Diastolic blood pressure 67 mm[Hg] Dr. Ken Contreras Work Phone: 7(099)597-416126 [place] [address] 02-25-2023 06:48-0400 Heart rate 60 /min Dr. Ken Contreras Work Phone: 1(623)134-374326 [place] [address] 02-25-2023 06:48-0400 Respiratory rate 18 /min Dr. Ken Contreras Work Phone: 3(467)371-401526 [place] [address] 02-25-2023 06:48-0400 SaO2% (BldA) [Mass fraction] 95 % Dr. Ken Contreras Work Phone: 5(178)182-250726 [place] [address] 02-25-2023 06:48-0400 Systolic blood pressure 103 mm[Hg] Dr. Ken Contreras Work Phone: 2(241)714-178326 [place] [address] 01-09-2023 22:26-0400 Diastolic blood pressure 74 mm[Hg] Dr. Ken Contreras Work Phone: 8(599)470-325826 [place] [address] 01-09-2023 22:26-0400 Heart rate 64 /min Dr. Ken Contreras Work Phone: 5(636)295-940926 [place] [address] 01-09-2023 22:26-0400 Respiratory rate 15 /min Dr. Ken Contreras Work Phone: 8(258)092-660326 [place] [address] 01-09-2023 22:26-0400 SaO2% (BldA) [Mass fraction] 97 % Dr. Ken Contreras Work Phone: 8(790)079-109426 [place] [address] 01-09-2023 22:26-0400 Systolic blood pressure 136 mm[Hg] Dr. Ken Contreras Work Phone: 7(702)229-326526 [place] [address] 01-09-2023 18:23-0400 Body height 157.[address] Ken Contreras Work Phone: 1(227)909-524726 [place] [address] 01-09-2023 18:23-0400 Body mass index (BMI) [Ratio] 32.5 kg/m2 Dr. Ken Contreras Work Phone: [facility] 01-09-2023 18:23-0400 Body temperature 96.7 [degF] Dr. Ken Contreras Work Phone: [facility] 01-09-2023 18:23-0400 Body weight 80.[address] Ken Contreras Work Phone: [facility] 01-09-2023 17:38-0400 Body temperature 97.9 [degF] Daniella Banegas APRN.MICROBIOLOGICAL LABORATORY TECHNICIAN Work Phone: [facility] 01-09-2023 17:38-0400 Body weight 80.92 kg Daniella Banegas APRN.MICROBIOLOGICAL LABORATORY TECHNICIAN Work Phone: [facility] 01-09-2023 17:38-0400 Diastolic blood pressure 84 mm[Hg] Daniella Banegas APRN.MICROBIOLOGICAL LABORATORY TECHNICIAN Work Phone: [facility] 01-09-2023 17:38-0400 Heart rate 60 /min Daniella Banegas APRN.MICROBIOLOGICAL LABORATORY TECHNICIAN Work Phone: [facility] 01-09-2023 17:38-0400 Respiratory rate 18 /min Daniella Banegsa APRN.MICROBIOLOGICAL LABORATORY TECHNICIAN Work Phone: [facility] 01-09-2023 17:38-0400 SaO2% (BldA) [Mass fraction] 98 % Daniella Banegas APRN.MICROBIOLOGICAL LABORATORY TECHNICIAN Work Phone: [facility] 01-09-2023 17:38-0400 Systolic blood pressure 126 mm[Hg] Daniella Banegas APRN.MICROBIOLOGICAL LABORATORY TECHNICIAN Work Phone: [facility] 08-19-2022 14:20-0500 Body height 158.[address] Ken Contreras Work Phone: [facility] Work Phone: 08-19-2022 14:20-0500 Body mass index (BMI) [Ratio] 32.2 kg/m2 Dr. Ken Contreras Work Phone: [facility] Work Phone: 08-19-2022 14:20-0500 Body temperature 97.3 [degF] Dr. Ken Contreras Work Phone: [facility] Work Phone: 08-19-2022 14:20-0500 Body weight 81.[address] Ken Contreras Work Phone: [facility] Work Phone: 08-19-2022 14:20-0500 Diastolic blood pressure 81 mm[Hg] Dr. Ken Contreras Work Phone: [facility] Work Phone: 08-19-2022 14:20-0500 Heart rate 63 /min Dr. Ken Contreras Work Phone: [facility] Work Phone: 08-19-2022 14:20-0500 Respiratory rate 18 /min Dr. Ken Contreras Work Phone: [facility] Work Phone: 08-19-2022 14:20-0500 SaO2% (BldA) [Mass fraction] 95 % Dr. Ken Contreras Work Phone: [facility] Work Phone: 08-19-2022 14:20-0500 Systolic blood pressure 130 mm[Hg] Dr. Ken Contreras Work Phone: [facility] Work Phone: 08-01-2022 14:21-0500 Body height 158.8 cm Ken Contreras MD Work Phone: [facility] 08-01-2022 14:21-0500 Body weight 80.29 kg Ken Contreras MD Work Phone: [facility] 08-01-2022 14:21-0500 Diastolic blood pressure 75 mm[Hg] Ken Contreras MD Work Phone: [facility] 08-01-2022 14:21-0500 Heart rate 66 /min Ken Contreras MD Work Phone: [facility] 08-01-2022 14:21-0500 Respiratory rate 12 /min Ken Contreras MD Work Phone: [facility] 08-01-2022 14:21-0500 Systolic blood pressure 115 mm[Hg] Ken Contreras MD Work Phone: [facility] 07-15-2022 16:06-0500 Diastolic blood pressure 97 mm[Hg] Geoff Carlos MD Work Phone: [facility] 07-15-2022 16:06-0500 Heart rate 62 /min Geoff Carlos MD Work Phone: [facility] 07-15-2022 16:06-0500 Systolic blood pressure 166 mm[Hg] Geoff Carlos MD Work Phone: [facility] 07-05-2022 11:04-0400 Body weight 78.93 kg Misael Cooley MD Work Phone: [facility] 07-05-2022 11:04-0400 Diastolic blood pressure 82 mm[Hg] Misael Cooley MD Work Phone: [facility] 07-05-2022 11:04-0400 Heart rate 67 /min Misael Cooley MD Work Phone: [facility] 07-05-2022 11:04-0400 Respiratory rate 16 /min Misael Cooley MD Work Phone: [facility] 07-05-2022 11:04-0400 SaO2% (BldA) [Mass fraction] 96 % Misael Cooley MD Work Phone: [facility] 07-05-2022 11:04-0400 Systolic blood pressure 130 mm[Hg] Misael Cooley MD Work Phone: [facility] 06-19-2022 12:46-0400 Body temperature 98.91 [degF] Jennifer Thayer APRN.CNP Work Phone: [facility] 06-19-2022 12:46-0400 Body weight 79.83 kg Jennifer Older TITLE INSURANCE SALES REPRESENTATIVE.MICROBIOLOGICAL LABORATORY TECHNICIAN Work Phone: [facility] 06-19-2022 12:46-0400 Diastolic blood pressure 72 mm[Hg] Jennifer Older TITLE INSURANCE SALES REPRESENTATIVE.MICROBIOLOGICAL LABORATORY TECHNICIAN Work Phone: [facility] 06-19-2022 12:46-0400 Heart rate 60 /min Jennifer Older TITLE INSURANCE SALES REPRESENTATIVE.MICROBIOLOGICAL LABORATORY TECHNICIAN Work Phone: [facility] 06-19-2022 12:46-0400 Respiratory rate 16 /min Jennifer Older TITLE INSURANCE SALES REPRESENTATIVE.MICROBIOLOGICAL LABORATORY TECHNICIAN Work Phone: [facility] 06-19-2022 12:46-0400 Systolic blood pressure 120 mm[Hg] Jennifer Older TITLE INSURANCE SALES REPRESENTATIVE.MICROBIOLOGICAL LABORATORY TECHNICIAN Work Phone: [facility] 01-23-2022 13:50-0400 Body temperature 98.29 [degF] Ken Contreras MD Work Phone: [facility] 01-23-2022 13:50-0400 Body weight 79.38 kg Ken Contreras MD Work Phone: [facility] 01-23-2022 13:50-0400 Diastolic blood pressure 70 mm[Hg] Ken Contreras MD Work Phone: [facility] 01-23-2022 13:50-0400 Heart rate 60 /min Ken Contreras MD Work Phone: [facility] 01-23-2022 13:50-0400 Respiratory rate 16 /min Ken Contreras MD Work Phone: [facility] 01-23-2022 13:50-0400 SaO2% (BldA) [Mass fraction] 92 % Ken Contreras MD Work Phone: [facility] 01-23-2022 13:50-0400 Systolic blood pressure 118 mm[Hg] Ken Contreras MD Work Phone: [facility] 01-07-2022 11:06-0400 Body height 159 cm Rianemo Matamoros DO Work Phone: [facility] 01-07-2022 11:06-0400 Body weight 79.38 kg Ria Matamoros DO Work Phone: [facility] 01-07-2022 11:06-0400 Diastolic blood pressure 77 mm[Hg] Ria Matamoros DO Work Phone: [facility] 01-07-2022 11:06-0400 Heart rate 60 /min Ria Matamoros DO Work Phone: [facility] 01-07-2022 11:06-0400 SaO2% (BldA) [Mass fraction] 100 % Ria Matamoros DO Work Phone: [facility] 01-07-2022 11:06-0400 Systolic blood pressure 132 mm[Hg] Ria Matamoros DO Work Phone: [facility] 10-01-2021 13:38-0500 Body height 157.[address] Ken Contreras Work Phone: [facility] Work Phone: 10-01-2021 13:38-0500 Body mass index (BMI) [Ratio] 32.3 kg/m2 Dr. Ken Contreras Work Phone: [facility] Work Phone: 10-01-2021 13:38-0500 Body weight 80.[address] Ken Contreras Work Phone: [facility] Work Phone: 10-01-2021 13:38-0500 Diastolic blood pressure 80 mm[Hg] Dr. Ken Contreras Work Phone: [facility] Work Phone: 10-01-2021 13:38-0500 Heart rate 60 /min Dr. Ken Contreras Work Phone: [facility] Work Phone: 10-01-2021 13:38-0500 Respiratory rate 18 /min Dr. Ken Contreras Work Phone: [facility] Work Phone: 10-01-2021 13:38-0500 SaO2% (BldA) [Mass fraction] 95 % Dr. Ken Contreras Work Phone: [facility] Work Phone: 10-01-2021 13:38-0500 Systolic blood pressure 130 mm[Hg] Dr. Ken Contreras Work Phone: [facility] Work Phone: 07-27-2017 14:41-0500 BMI (Body Mass Index) 33.48 kg/m2 [facility] Work Phone: 07-27-2017 14:41-0500 Body Temperature 97.7 [degF] [facility] Work Phone: 07-27-2017 14:41-0500 BP Diastolic 80 mm[Hg] [facility] Work Phone: 07-27-2017 14:41-0500 BP Systolic 164 mm[Hg] [facility] Work Phone: 07-27-2017 14:41-0500 Height 160.02 cm [facility] Work Phone: 07-27-2017 14:41-0500 Pulse (Heart Rate) 62 /min [facility] Work Phone: 07-27-2017 14:41-0500 Respiratory Rate 18 /min [facility] Work Phone: 07-27-2017 14:41-0500 Weight 85.73 kg [facility] Work Phone: 07-24-2017 07:36-0500 BMI (Body Mass Index) 33.65 kg/m2 Taylor Mena LPN [facility] Work Phone: 07-24-2017 07:36-0500 Body Temperature 97.6 [degF] Taylor Yensho BOARDING [employer] OPERATOR [facility] Phone: 07-24-2017 07:36-0500 BP Diastolic 84 mm[Hg] Taylor Yensho BOARDING KENNEL [employer] CATTER[employer] OPERATOR [facility] Work Phone: 07-24-2017 07:36-0500 BP Systolic 141 mm[Hg] Taylor Yensho BOARDING [employer]ENN[employer] CATTERY OPERATOR [facility] Work Phone: 07-24-2017 07:36-0500 Height 160.02 cm Taylor Yensho BOARDING [employer]TER[employer] OPERATOR [facility] Phone: 07-24-2017 07:36-0500 Pulse (Heart Rate) 61 /min Taylor Yensho BOARDING [employer] OPERATOR [facility] Phone: 07-24-2017 07:36-0500 Respiratory Rate 18 /min Taylor Yensho BOARDING [employer] OPERATOR [facility] Phone: 07-24-2017 07:36-0500 Weight 86.18 kg Taylor Yensho BOARDING [employer] OPERATOR [facility] Phone: 03-05-2017 08:46-0400 Body Temperature 97.81 [degF] Taylor Yensho BOARDING [employer] OPERATOR [facility] Phone: 03-05-2017 08:46-0400 Height 160.02 cm Taylor Yensho BOARDING [employer] OPERATOR [facility] Work Phone: 03-05-2017 08:46-0400 Weight 83.91 kg Taylor Yensho BOARDING [employer]TER[employer] OPERATOR [facility] Phone: 11-27-2016 12:52-0400 Inhaled O2 2 Taylor Yensho BOARDING [employer] OPERATOR [facility] Phone: Encounters Encounter Date Encounter Type Care Provider Facility Start: 03-08-2025 pepper Doll ty:[facility] Start: 03-04-2025 End: 03-07-2025 Refill Dia Valdez Hussain MILTONMICROBIOLOGICAL LABORATORY TECHNICIAN Work Phone: [facility] Comment on above: Refill Request Start: 03-02-2025 End: 03-02-2025 Office outpatient visit 25 minutes Ken Contreras MD Work Phone: [facility] Comment on above: Depression, recurren t (Primary Dx); Hip pain, left; MARTINES (dyspnea on exertion); Contusion of left side of back, subsequent encounter Start: 03-02-2025 End: 03-02-2025 ambulatory KEN CONTRERAS Facility:[facility] Start: 02-15-2025 End: 02-15-2025 Emergency department patient visit Dr. Ken Contreras MD Work Phone: -Emergency Department Work Phone: Start: 02-15-2025 End: 02-15-2025 ambulatory Ken Contreras MD Work Phone: Internal Medicine [place] Comment on above: Head Injury Start: 02-06-2025 End: 02-06-2025 Telephone encounter Ken Contreras MD Work Phone: Internal Medicine [place] Comment on above: [facility] Scheduling dept requesting records Start: 02-03-2025 End: 02-03-2025 ambulatory [facility] Work Phone: [facility] Comment on above: Spirometry Start: 02-03-2025 End: 02-03-2025 Patient encounter procedure [facility] Work Phone: [facility] Start: 02-03-2025 End: 02-03-2025 Telephone encounter Ken Contreras MD Work Phone: Internal Medicine [place] Comment on above: Request for records Patient Update Start: 02-02-2025 End: 02-02-2025 Office outpatient visit 25 minutes Ken Contreras MD Work Phone: Internal Medicine [place] Comment on above: Depression, recurren t (Primary Dx); Hip pain, left; Dyspnea on exertion Start: 02-02-2025 End: 02-02-2025 ambulatory KEN CONTRERAS Facility:[facility] Start: 01-26-2025 End: 01-26-2025 ambulatory TRUONG CLEOPATRA Facility:[facility] Start: 01-25-2025 End: 01-25-2025 ambulatory CAMI ANDREWBETTYE Facility:[facility] Start: 01-11-2025 End: 01-11-2025 Patient encounter procedure Ailyn Valdez Edmundoary BETTY Work Phone: PHYSICAL MEDICINE & REHAB Comment on above: Personal history of traumatic brain injury (Primary Dx); Sleep apnea, unspecified type Start: 01-11-2025 End: 01-11-2025 ambulatory AILYN BONNER Facility:[facility] Start: 01-06-2025 End: 01-06-2025 ambulatory Najma John RN Ladies' Locker Room Attendant Management Comment on above: Bi-Weekly Outreach ( Recurring) for Chronic Disease Management, Bi-Weekly Outreach (Recurring) for Chronic Disease Management Start: 01-05-2025 End: 01-05-2025 ambulatory KEN CONTRERAS Facility:[facility] Start: 01-05-2025 End: 01-05-2025 Patient encounter procedure Ken Contreras MD Work Phone: Internal Medicine [place] Comment on above: Medicare annual well ness visit, subsequent (Primary Dx); Depression, recurrent; Anxiety; Allergy to penicillin; Mild intermittent extrinsic asthma with acute exacerbation (HCC); Acquired hypothyroidism; Vitamin D deficiency; Stage 3 chronic kidney disease, unspecified whether stage 3a or 3b CKD (HCC); Dyspnea on exertion Start: 12-23-2024 End: 12-23-2024 ambulatory Zane Mcpherson [facility] Start: 12-23-2024 End: 12-23-[address] 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 Comment on above: Bi-Weekly Outreach ( Recurring) for Chronic Disease Management Start: 12-19-2024 End: 12-19-2024 Telephone encounter Ken Contreras MD Work Phone: Internal Medicine [place] Comment on above: Fax Request Start: 12-16-2024 End: 12-16-2024 ambulatory KEN CONTRERAS Facility:[facility] Start: 12-16-2024 End: 12-16-2024 Patient encounter procedure Ruben Ferrara PA-C Work Phone: Orthopaedics Comment on above: Chronic bilateral lo w back pain without sciatica (Primary Dx); Hip pain, left; Pain of erector spinae muscle Start: 12-15-2024 End: 12-16-2024 Follow-up encounter Cami Mars MD Work Phone: Geriatrics Start: 12-14-2024 End: 12-14-2024 ambulatory [facility] Facility:[facility] Start: 12-14-2024 End: 12-14-2024 ambulatory [facility] Facility:[facility] Start: 12-14-2024 End: 12-14-2024 Office consultation new/estab patient 60 min Cami Mars MD Work Phone: Geriatrics Comment on above: Trochanteric bursiti s of left hip (Primary Dx); Fatigue, unspecified type; 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 lower extremity pain; Physical debility; Iron deficiency; Vitamin D deficiency; Recurrent major depressive disorder, in partial remission Start: 12-13-2024 End: 12-13-2024 Telephone encounter Ashely Miller MD Work Phone: Pulmonary Medicine Comment on above: Patient Update Start: 12-07-2024 End: 12-07-2024 ambulatory Najma John RN [employer]' [employer]ocker Room Attendant Management Comment on above: Bi-Weekly Outreach ( Recurring) for Chronic Disease Management Start: 12-06-2024 End: 12-07-2024 Refill Dia Lopez APRN.CNP Work Phone: Internal Medicine [place] Comment on above: Refill Request Start: 12-01-2024 End: 12-02-2024 Telephone encounter Ken Contreras MD Work Phone: [address] [place] [address] Comment on above: Patient Question Start: 11-29-2024 End: 11-29-2024 Telephone encounter Ken Contreras MD Work Phone: Internal Medicine [place] Comment on above: Consult (Orthopedic ) Start: 11-24-2024 End: 11-24-2024 ambulatory KEN CONTRERAS Facility:[facility] Start: 11-24-2024 End: 11-24-2024 Subsequent hospital visit by physician Xr [facility] Work Phone: Radiology Comment on above: Hip pain, left [M25. 552] Start: 11-24-2024 End: 11-24-2024 ambulatory KEN CONTRERAS Facility:[facility] Start: 11-24-2024 End: 11-24-2024 Office outpatient visit 25 minutes Ken Contreras MD Work Phone: Internal Medicine [place] Comment on above: Hip pain, left (Prim corinna Dx); Physical debility; Oxygen desaturation; Bronchiectasis without complication (HCC) Start: 11-23-2024 End: 11-23-2024 ambulatory Najma John air traffic control managerLadies' Locker Room Attendant Management Comment on above: Started Bi-Weekly Ou roz (Recurring) for Chronic Disease Management Start: 11-11-2024 End: 11-11-[address] Ken Contreras MD Work Phone: [facility] Work Phone: Start: 11-11-2024 End: 11-11-2024 Patient encounter procedure Latonya Vargas PA -Laboratory Work Phone: Start: 11-11-2024 End: 11-11-2024 ambulatory Latonya Vargas Facility:[facility] Start: 11-09-2024 End: 12-12-2024 ambulatory Najma John RN Ladies' Locker Room Attendant Management Comment on above: Initial enrollment o francis for Chronic Disease Management Start: 10-31-2024 End: 10-31-2024 Orders Only Ashely Miller MD Work Phone: Pulmonary Medicine Comment on above: Bronchiectasis witho ut complication (HCC) (Primary Dx) Overnight test Start: 10-30-2024 End: 11-02-2024 Refill Ken Contreras MD Work Phone: Internal Medicine [place] Comment on above: Refill Request Start: 10-20-2024 End: 10-20-2024 ambulatory DIA José Miguel KRAUSEHUSSAIN Facility:[facility] Start: 10-20-2024 End: 10-20-2024 Patient encounter procedure Ashely Miller MD Work Phone: Pulmonary Medicine Comment on above: Nocturnal hypoxemia (Primary Dx); Bronchiectasis without complication (HCC); Pulmonary hypertension (HCC); Mild intermittent asthma without complication Start: 10-12-2024 End: 10-12-[address] Jann Mello MD -[facility], [facility] Work Phone: Start: 10-11-2024 End: 10-12-2024 ambulatory DIA LOPEZ Facility:[facility] Start: 10-11-2024 End: 10-11-2024 Patient encounter procedure Dia José Miguel Hussain TITLE INSURANCE SALES REPRESENTATIVE.MICROBIOLOGICAL LABORATORY TECHNICIAN Work Phone: Internal Medicine [place] Comment on above: Nocturnal hypoxia (P rimary Dx); Asthmatic bronchitis , chronic (HCC); Depression, recurrent (HCC); Stage 3 chronic kidney disease, unspecified whether stage 3a or 3b CKD (HCC); Bronchiectasis without complication (HCC); Essential hypertension Start: 09-28-2024 End: 10-05-2024 Telephone encounter Ken Contreras MD Work Phone: Internal Medicine [place] Comment on above: Patient Update Start: 09-23-2024 End: 09-23-2024 ambulatory Zane Mcpherson Facility[place] Start: 09-23-2024 End: 09-23-[address] Zane Mcpherson MD -[facility] Work Phone: Start: 09-05-2024 End: 09-05-2024 Emergency department patient visit Dr. Patrice Brady DO -Emergency Department Work Phone: Start: 09-04-2024 End: 09-05-2024 Refill Ken Contreras MD Work Phone: Internal Medicine [place] Comment on above: Refill Request Start: 08-26-[address] Aryan Contreras MD -[facility] Work Phone: Start: 08-26-2024 ambulatory Ken Contreras Facili ty:[facility] Start: 08-11-2024 End: 08-12-2024 Telephone encounter Ken Contreras MD Work Phone: Internal Medicine [place] Comment on above: Question Start: 08-08-2024 End: 08-08-2024 Emergency department patient visit Dr. Shad Hunter MD -Emergency Department Work Phone: Start: 08-08-2024 End: 08-09-2024 Telephone encounter Ken Contreras MD Work Phone: Internal Medicine [place] Comment on above: Fall Start: 07-08-2024 End: 07-08-2024 Patient encounter procedure Jyotsna Donohue TITLE INSURANCE SALES REPRESENTATIVE.MICROBIOLOGICAL LABORATORY TECHNICIAN Work Phone: Neurology Comment on above: Excessive daytime sl eepiness (Primary Dx) Start: 07-08-2024 End: 07-08-2024 ambulatory KEN Brody CLEOPATRA Facility:[facility] Start: 07-06-2024 End: 07-06-2024 ambulatory AILYN BONNER Facility:[facility] Start: 07-06-2024 End: 07-06-2024 Patient encounter procedure Ailyn Bonner TITLE INSURANCE SALES REPRESENTATIVE.MICROBIOLOGICAL LABORATORY TECHNICIAN Work Phone: PHYSICAL MEDICINE & REHAB Comment on above: Fatigue, unspecified type (Primary Dx); Personal history of traumatic brain injury; Impaired functional mobility, balance, gait, and endurance Start: 07-01-2024 End: 07-01-2024 ambulatory Ken Contreras Facility[place] Start: 07-01-2024 End: 07-01-2024 ambulatory Zane Mcpherson Facility:[facility] Start: 06-24-2024 End: 07-11-2024 Telephone encounter Kaya Cartwright MD Work Phone: Neurology Comment on above: Results Start: 06-24-2024 End: 06-24-2024 ambulatory Ken Ageeasquez Facility:[facility] Start: 06-21-2024 End: 06-21-2024 ambulatory Ken Contreras Facility:[facility] Start: 06-06-2024 End: 06-06-2024 Telephone encounter Kaya Cartwright MD Work Phone: Sleep Comment on above: faxed orders to [facility]- polysomnogram Start: 06-05-2024 End: 06-06-2024 Refill Dia Lopez APRN.CNP Work Phone: Internal Medicine [place] Comment on above: Refill Request Start: 06-01-2024 End: 06-01-2024 Telephone encounter Kaya Cartwright MD Work Phone: Neurology Comment on above: Patient Update Start: 05-27-2024 End: 05-27-2024 Subsequent hospital visit by physician [facility] Work Phone: Radiology Comment on above: Oxygen desaturation [R09.02] Start: 05-27-2024 End: 05-27-2024 ambulatory KEN CONTRERAS Facility:[facility] Start: 05-27-2024 End: 05-27-2024 Office outpatient visit 25 minutes Ken Contreras MD Work Phone: Internal Medicine [place] Comment on above: Oxygen desaturation (Primary Dx); Encounter for immunization; Asthmatic bronchitis , chronic (HCC); Bronchiectasis without complication (HCC); Nocturnal hypoxemia; Dyspnea, unspecified type Start: 05-26-2024 End: 05-26-2024 ambulatory Jackie Lainez PT [facility] Comment on above: 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) Start: 05-26-2024 End: 05-26-2024 ambulatory DIA LOPEZ Facility:[facility] Start: 05-25-2024 End: 05-25-2024 Telephone encounter Kaya Cartwright MD Work Phone: [place] Comment on above: Orders Start: 05-20-2024 End: 05-20-2024 ambulatory Kaela Brasher FLAME HARDENER Work Phone: [facility] Comment on above: 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) Start: 05-16-2024 End: 05-16-2024 Telephone encounter Kaya Cartwright MD Work Phone: Neurology Comment on above: Results Start: 05-16-2024 End: 05-16-2024 ambulatory DIA LOPEZ Facility:[facility] Start: 05-16-2024 End: 05-16-2024 Patient encounter procedure Rhoda Alcazar MD Work Phone: Otolaryngology Comment on above: Sore throat (Primary Dx); History of oral lesions Start: 05-13-2024 End: 05-13-2024 Telephone encounter Dia Lopez TITLE INSURANCE SALES REPRESENTATIVE.MICROBIOLOGICAL LABORATORY TECHNICIAN Work Phone: Internal Medicine [place] Comment on above: Referral Request Start: 05-13-2024 End: 05-13-2024 ambulatory DIA LOPEZ Facility:[facility] Start: 05-13-2024 End: 05-13-2024 Patient encounter procedure Dia Lopez TITLE INSURANCE SALES REPRESENTATIVE.MICROBIOLOGICAL LABORATORY TECHNICIAN Work Phone: Internal Medicine [place] Comment on above: Nocturnal hypoxia (P rimary Dx); Chest discomfort; Bronchiectasis without complication (HCC) Start: 05-12-2024 End: 05-16-2024 Telephone encounter Ken Contreras MD Work Phone: Internal Medicine [place] Comment on above: Appointment Start: 05-12-2024 End: 05-12-2024 ambulatory Kaela Yangsherine FLAME HARDENER Work Phone: [facility] Comment on above: 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) Start: 05-11-2024 End: 05-13-2024 ambulatory Ken Contreras MD Work Phone: Internal Medicine [place] Comment on above: Response to your mes radha of 05/11/24 Start: 05-05-2024 End: 05-05-2024 ambulatory Jackie Lainez PT [facility] Comment on above: 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) Start: 05-03-2024 End: 05-03-2024 ambulatory KEN CONTRERAS Facility:[facility] Start: 05-02-2024 End: 05-02-2024 Refill Ken Contreras MD Work Phone: Internal Medicine [place] Comment on above: Refill Request Start: 04-29-2024 End: 05-06-2024 [facility] Work Phone: Neurology Start: 04-26-2024 End: 04-26-2024 ambulatory Jackie Lainez PT [facility] Comment on above: 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) Start: 04-21-2024 End: 04-21-2024 ambulatory MICHELLE VAZQUEZ Facility:[facility] Start: 04-21-2024 End: 04-21-2024 Patient encounter procedure Michelle Vazquez APRN.MICROBIOLOGICAL LABORATORY TECHNICIAN Work Phone: [facility] Comment on above: SAH (subarachnoid he morrhage) (HCC) (Primary Dx) Start: 04-21-2024 End: 04-21-2024 Telemedicine consultation with patient Michelle Vazquez MICROBIOLOGICAL LABORATORY TECHNICIAN Work Phone: [facility] Start: 04-18-2024 End: 04-18-2024 Patient encounter procedure Kaya Cartwright MD Work Phone: Neurology Comment on above: Hypersomnia (Primary Dx); Delayed sleep phase syndrome; Insomnia, unspecified type; History of depression; History of anxiety; Snoring; Nocturia; Class 1 obesity with body mass index (BMI) of 31.0 to 31.9 in adult, unspecified obesity type, unspecified whether serious comorbidity present Start: 04-18-2024 End: 04-18-2024 ambulatory AILYN BONNER Facility:[facility] Start: 04-02-2024 Refill Dia calderon APRN.MICROBIOLOGICAL LABORATORY TECHNICIAN Work Phone: Internal Medicine [place] Comment on above: Refill Request Start: 03-30-2024 End: 03-30-2024 Patient encounter procedure Dia Lopez TITLE INSURANCE SALES REPRESENTATIVE.MICROBIOLOGICAL LABORATORY TECHNICIAN Work Phone: Internal Medicine [place] Comment on above: Essential hypertensi on (Primary Dx); Fall from slip, trip, or stumble, initial encounter; Balance problem; Asthmatic bronchitis , chronic (HCC); Acquired hypothyroidism; Anxiety Start: 03-30-2024 End: 03-30-2024 ambulatory DIA LOPEZ Facility:[facility] Start: 03-25-2024 End: 03-25-2024 ambulatory Ken Contreras Facility:[facility] Start: 03-01-2024 Refill Dia calderon TITLE INSURANCE SALES REPRESENTATIVE.MICROBIOLOGICAL LABORATORY TECHNICIAN Work Phone: Internal Medicine [place] Comment on above: Refill Request Start: 02-12-2024 Telephone encounter Ken murillo MD Work Phone: Internal Medicine [place] Comment on above: Results Start: 01-27-2024 End: 01-27-2024 ambulatory AILYN BONNER Facility:[facility] Start: 01-27-2024 End: 01-27-2024 ambulatory Jose Diaz CCC-TERMITE CONTROL SERVICE REPRESENTATIVE Work Phone: [facility] Start: 01-27-2024 End: 01-27-2024 Patient encounter procedure Jose Diaz CCC-TERMITE CONTROL SERVICE REPRESENTATIVE Work Phone: [facility] Comment on above: Personal history of traumatic brain injury (Primary Dx) Start: 01-21-2024 End: 01-21-2024 Patient encounter procedure Michelle Vazquez TITLE INSURANCE SALES REPRESENTATIVE.MICROBIOLOGICAL LABORATORY TECHNICIAN Work Phone: [facility] Comment on above: SAH (subarachnoid he morrhage) (HCC) (Primary Dx) Start: 01-21-2024 End: 01-21-2024 ambulatory MICHELLE VAZQUEZ Facility:[facility] Start: 01-06-2024 End: 01-06-2024 Patient encounter procedure Ailyn Bonner TITLE INSURANCE SALES REPRESENTATIVE.MICROBIOLOGICAL LABORATORY TECHNICIAN Work Phone: PHYSICAL MEDICINE & REHAB Comment on above: Personal history of traumatic brain injury (Primary Dx); Sleep apnea, unspecified type; Fatigue, unspecified type; Aphagia; Impaired functional mobility, balance, gait, and endurance Start: 12-05-2023 Refill Dia calderon TITLE INSURANCE SALES REPRESENTATIVE.MICROBIOLOGICAL LABORATORY TECHNICIAN Work Phone: Internal Medicine [place] Comment on above: Refill Request Start: 11-09-2023 End: 11-09-2023 Patient encounter procedure Tremaine Landon MD Work Phone: Neurology Comment on above: Traumatic brain inju ry, without loss of consciousness, subsequent encounter (Primary Dx); 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; Dizziness and giddiness; Forgetfulness; Imbalance; Post-traumatic headache, not intractable, unspecified chronicity pattern Start: 11-09-2023 End: 11-09-2023 ambulatory TREMAINE LANDON Facility:[facility] Start: 11-04-2023 Refill Dia calderon TITLE INSURANCE SALES REPRESENTATIVE.MICROBIOLOGICAL LABORATORY TECHNICIAN Work Phone: Internal Medicine [place] Comment on above: Refill Request Start: 11-03-2023 Refill Ken nolen MD Work Phone: Internal Medicine [place] Comment on above: Refill Request Start: 10-29-2023 Telephone encounter Ken murillo MD Work Phone: Internal Medicine [place] Comment on above: Patient Question Start: 10-22-2023 End: 10-22-2023 Patient encounter procedure Michelle Vazquez TITLE INSURANCE SALES REPRESENTATIVE.MICROBIOLOGICAL LABORATORY TECHNICIAN Work Phone: [facility] Comment on above: SAH (subarachnoid he morrhage) (HCC) (Primary Dx) Start: 10-22-2023 End: 10-22-2023 ambulatory MICHELLE FEGATELLI Facility:[facility] Start: 10-19-2023 End: 10-19-2023 Subsequent hospital visit by physician [facility] Work Phone: Cat [facility] Comment on above: SAH (subarachnoid he morrhage) (HCC) [I60.9] Start: 10-14-2023 End: 10-14-2023 Patient encounter procedure Ken Contreras MD Work Phone: Internal Medicine [place] Comment on above: Subarachnoid bleed ( HCC) (Primary Dx); DDD (degenerative disc disease), lumbar; Acquired hypothyroidism; Gastroesophageal reflux disease with esophagitis; Depressive disorder w/ seasonal affective disorder; Anxiety; Injury of head, subsequent encounter; Bronchiectasis without complication (HCC); Physical debility; Gastroesophageal reflux disease with esophagitis, unspecified whether hemorrhage Start: 10-02-2023 End: 10-05-2023 Evaluation and management of inpatient WEN GALICIA Facility:[facility] Start: 10-02-2023 End: 10-02-2023 Emergency department patient visit Dr. Ken Contreras Work Phone: [facility]-Emergency Department Work Phone: Start: 09-30-2023 End: 09-30-2023 Patient encounter procedure Dia Lopez TITLE INSURANCE SALES REPRESENTATIVE.MICROBIOLOGICAL LABORATORY TECHNICIAN Work Phone: Internal Medicine [place] Comment on above: Medicare annual well ness visit, subsequent (Primary Dx); Depression, recurrent (HCC); Bronchiectasis without complication (HCC); Stage 3 chronic kidney disease, unspecified whether stage 3a or 3b CKD (HCC) Start: 08-07-2023 End: 08-07-[address] Ken Contreras Work Phone: [facility] Work Phone: Start: 08-04-2023 End: 08-04-2023 [facility] Work Phone: Rad[facility] Start: 07-08-2023 ambulatory Dia GraceMICROBIOLOGICAL LABORATORY TECHNICIAN Work Phone: Internal Medicine [place] Comment on above: mammogram results Start: 07-08-2023 E-mail encounter fro m caregiver Dia Thayer APRN.MICROBIOLOGICAL LABORATORY TECHNICIAN Work Phone: [facility] Start: 07-07-2023 End: 07-07-2023 Subsequent hospital visit by physician [facility] Comment on above: Screening mammogram for breast cancer [Z12.31] Start: 06-23-2023 End: 06-23-[address] Ken Contreras Work Phone: [facility] Work Phone: Start: 05-27-2023 End: 05-27-2023 Emergency department patient [facility] Start: 05-21-2023 End: 05-21-2023 Patient encounter procedure Dia Older TITLE INSURANCE SALES REPRESENTATIVELeslyMICROBIOLOGICAL LABORATORY TECHNICIAN Work Phone: Internal Medicine [place] Comment on above: Fall on same level f rom slipping, tripping or stumbling, subsequent encounter (Primary Dx); Abrasion, multiple sites; Injury of head, subsequent encounter; Injury of right knee, subsequent encounter; Need for vaccine for DT (diphtheria-tetanus); Encounter for immunization; Screening mammogram for breast cancer Start: 05-18-2023 End: 05-18-2023 Emergency department patient visit Dr. [facility] Contreras [facility] Start: 05-05-2023 End: 05-05-[address] Ken Contreras Work Phone: [facility] Work Phone: Start: 05-05-2023 End: 05-05-[address] Ken Contreras Work Phone: [facility] Work Phone: Start: 04-28-2023 Refill Ken nolen MD Work Phone: Internal Medicine [place] Comment on above: Refill Request Start: 03-10-2023 Refill Dia Older TITLE INSURANCE SALES REPRESENTATIVE .MICROBIOLOGICAL LABORATORY TECHNICIAN Work Phone: Internal Medicine [place] Comment on above: Refill Request Start: 02-25-2023 End: 02-25-[address] Ken Contreras Work Phone: [facility]-Pulmonary Medicine [facility] Work Phone: Start: 02-16-2023 Refill Ken nolen MD Work Phone: Internal Medicine [place] Comment on above: Refill Request Start: 02-07-2023 Refill Ken nolen MD Work Phone: Internal Medicine [place] Comment on above: Refill Request Start: 01-09-2023 End: 01-09-2023 Emergency department patient visit Dr. Ken Contreras Work Phone: [facility]-Emergency Department Start: 01-09-2023 End: 01-09-2023 Patient encounter procedure Daniella Banegas TITLE INSURANCE SALES REPRESENTATIVE.MICROBIOLOGICAL LABORATORY TECHNICIAN Work Phone: [facility] Comment on above: Acute constipation ( Primary Dx) Start: 12-30-2022 Refill Ken nolen MD Work Phone: Internal Medicine [place] Start: 12-24-2022 Patient Msg [facility] Provider Internal Medicine [place] Comment on above: Refill request Start: 12-10-2022 Refill Ken nolen MD Work Phone: Internal Medicine [place] Comment on above: Refill Request Start: 12-08-2022 Refill Dia Older TITLE INSURANCE SALES REPRESENTATIVE .MICROBIOLOGICAL LABORATORY TECHNICIAN Work Phone: [facility] Comment on above: Refill Request Start: 12-07-2022 Refill Dia Older TITLE INSURANCE SALES REPRESENTATIVE .MICROBIOLOGICAL LABORATORY TECHNICIAN Work Phone: Internal Medicine [place] Comment on above: Refill Request Start: 11-16-2022 Refill Dia Older TITLE INSURANCE SALES REPRESENTATIVE .MICROBIOLOGICAL LABORATORY TECHNICIAN Work Phone: [facility] Comment on above: Refill Request Start: 11-14-2022 End: 11-14-[address] Ken Contreras Work Phone: [facility] Start: 10-30-2022 Refill Dia Older TITLE INSURANCE SALES REPRESENTATIVE .MICROBIOLOGICAL LABORATORY TECHNICIAN Work Phone: [facility] Comment on above: Refill Request Handicap Placard González ewal Request Start: 09-15-2022 Refill Ken nolen MD Work Phone: [facility] [place] Comment on above: Refill Request; Refi ll Request Start: 08-28-2022 End: 08-28-[address] Ken Contreras Work Phone: [facility] Work Phone: Start: 08-28-2022 End: 08-28-[address] [facility]re[facility] Start: 08-20-2022 End: 08-20-[address] Ken Contreras Work Phone: [facility] Work Phone: Start: 08-20-2022 End: 08-20-[address] Ken Contreras Work Phone: [facility]-Ultrasound, [facility] Start: 08-19-2022 End: 08-19-[address] Ken Contreras Work Phone: [facility]-Pulmonary Medicine [facility] Start: 08-08-2022 End: 08-08-[address] Ken Contreras Work Phone: [facility] Start: 08-01-2022 End: 08-01-2022 Patient encounter procedure Ken Contreras MD Work Phone: [facility] [place] Comment on above: Medicare annual [facility] visit, subsequent (Primary Dx); Dysfunction of left eustachian tube; Depressive disorder w/ seasonal affective disorder; Acquired hypothyroidism; Anxiety; DDD (degenerative disc disease), lumbar; Mixed stress and urge urinary incontinence; Essential hypertension; Recurrent UTI Start: 07-18-2022 Refill Ken nolen MD Work Phone: [facility] [place] Comment on above: Refill Request Start: 07-15-2022 End: 07-15-2022 Patient encounter procedure Geoff Carlos MD Work Phone: Ophthalmology Comment on above: 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, mild stage (Primary Dx); Optic cupping of both eyes; Nonexudative age-related macular degeneration, bilateral, intermediate dry stage; Essential hypertension Start: 07-05-2022 End: 07-05-2022 Patient encounter procedure Misael Cooley MD Work Phone: [facility] [place] Comment on above: Recurrent UTI Start: 07-03-2022 Telephone encounter Ken murillo MD Work Phone: [facility] [place] Comment on above: Insurance Authorizat ion Start: 06-30-2022 Telephone encounter Jennifer Thayer TITLE INSURANCE SALES REPRESENTATIVE.MICROBIOLOGICAL LABORATORY TECHNICIAN Work Phone: [facility] [place] Comment on above: reoccurant UTI Start: 06-23-2022 Telephone encounter Jennifer Thayer TITLE INSURANCE SALES REPRESENTATIVE.MICROBIOLOGICAL LABORATORY TECHNICIAN Work Phone: [facility] [place] Comment on above: Results Start: 06-19-2022 End: 06-19-2022 Patient encounter procedure Jennifer Thayer TITLE INSURANCE SALES REPRESENTATIVE.MICROBIOLOGICAL LABORATORY TECHNICIAN Work Phone: [facility] [place] Comment on above: Urinary tract infect ion without hematuria, site unspecified (Primary Dx); Dysuria Start: 06-18-2022 Refill Geoff leija MD Work Phone: Ophthalmology Comment on above: Refill Request Start: 05-31-2022 Refill Dia Older TITLE INSURANCE SALES REPRESENTATIVE .MICROBIOLOGICAL LABORATORY TECHNICIAN Work Phone: [facility] [place] Comment on above: Refill Request Start: 05-28-2022 Telephone encounter Ken murillo MD Work Phone: [facility] [place] Comment on above: Medication Problem; Patient Update Start: 05-08-2022 Telephone encounter Ken murillo MD Work Phone: [facility] [place] Comment on above: Patient Question Start: 05-07-2022 Refill Dia Older TITLE INSURANCE SALES REPRESENTATIVE .MICROBIOLOGICAL LABORATORY TECHNICIAN Work Phone: [facility] [place] Comment on above: Refill Request Start: 04-14-2022 Refill Geoff leija MD Work Phone: Ophthalmology Comment on above: Refill Request Start: 04-11-2022 ambulatory Ken nolen MD Work Phone: [facility] [place] Comment on above: sinus pressure; ear ache Start: 03-12-2022 End: 03-12-2022 Patient encounter procedure Geoff Carlos MD Work Phone: Ophthalmology Comment on above: 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, mild stage (Primary Dx); Optic cupping of both eyes; Nonexudative age-related macular degeneration, bilateral, intermediate dry stage; Essential hypertension Start: 02-10-2022 Refill Geoff leija MD Work Phone: Ophthalmology Comment on above: Refill Request Start: 01-23-2022 End: 01-23-2022 Subsequent hospital visit by physician [facility] [place] Work Phone: Radiology Comment on above: Pleurisy [R09.1] Start: 01-23-2022 End: 01-23-2022 Patient encounter procedure Ken Contreras MD Work Phone: [facility] [place] Comment on above: Pleurisy (Primary Dx ); Vitamin D deficiency; Bronchiectasis without complication (HCC); Essential hypertension; Acquired hypothyroidism; Elevated alkaline phosphatase measurement; Need for COVID-19 vaccine; Personal history of squamous cell carcinoma of skin Start: 01-17-2022 Non-patient / Non-visit Dr. Afia Contreras Work Phone: [facility] Start: 01-17-2022 End: 01-17-[address] Ken Contreras Work Phone: [facility]-Pulmonary Services/Neurology Start: 01-10-2022 Telephone encounter Dia Thayer APRN.CNP Work Phone: [facility] [place] Comment on above: Opened In Error Start: 01-07-2022 End: 01-07-2022 Patient encounter procedure Ria Matamoros DO Work Phone: Vascular Surgery Comment on above: Venous (peripheral) insufficiency (Primary Dx) Start: 12-18-2021 End: 12-18-[address] Ken Contreras [facility] Start: 11-29-2021 Refill Dia Older TITLE INSURANCE SALES REPRESENTATIVE .MICROBIOLOGICAL LABORATORY TECHNICIAN Work Phone: [facility] [place] Comment on above: Refill Request Start: 10-18-2021 End: 10-18-[address] Ken Contreras Work Phone: [facility] Start: 10-01-2021 End: 10-01-[address] Ken Contreras Work Phone: [facility] Start: 06-22-2012 End: 06-24-2017 Patient encounter procedure Ailyn Lundary TITLE INSURANCE SALES REPRESENTATIVE.MICROBIOLOGICAL LABORATORY TECHNICIAN Work Phone: [facility] Procedures Date Procedure Procedure Detail Performing Clinician Start: 02-15-2025 X-ray of lumbar spin e, two or three views Dr. Ken Contreras MD Work Phone: Start: 02-15-2025 CT cervical spine wi thout contrast Dr. Ken Contreras MD Work Phone: Start: 02-15-2025 CT of head without contrast Dr. Ken Contreras MD Work Phone: Start: 02-03-2025 Brncdilat rspse spmt ry pre&post-brncdilat admn Cami Mars MD Work Phone: Start: 01-11-2025 Follow-up visit Follow Up AILYNTHOM LUNDARY Start: 10-12-2024 CT of head without contrast Dr. Ken Contreras MD Work Phone: Start: 09-05-2024 X-ray of chest, PA a nd lateral views Dr. Ken Contreras MD Work Phone: Start: 09-05-2024 SARS-CoV-2, Influenz a & RSV (PCR) Dr. Ken Contreras MD Work Phone: Start: 08-08-2024 X-ray of chest posteroanterior view Dr. Ken Contreras MD Work Phone: Start: 08-08-2024 CT of head without contrast Dr. Ken Contreras MD Work Phone: Start: 05-27-2024 Radiologic exam chest 2 views Ken Contreras MD Work Phone: Start: 05-26-2024 Echocardiography CAMI MARS Start: 10-19-2023 Ct head/brain w/o co ntrast material Dulce Vallejo PA-C Work Phone: Start: 10-02-2023 CT cervical spine wi thout contrast Dr. Ken Contreras Work Phone: Start: 10-02-2023 CT of head without contrast Dr. Ken Contreras Work Phone: Start: 08-04-2023 Digital breast tomos ynthesis unilateral Dia Older TITLE INSURANCE SALES REPRESENTATIVE.MICROBIOLOGICAL LABORATORY TECHNICIAN Work Phone: Start: 07-07-2023 Screening mammograph y bi 2-view breast inc cad Dia Older TITLE INSURANCE SALES REPRESENTATIVE.MICROBIOLOGICAL LABORATORY TECHNICIAN Work Phone: Start: 05-27-2023 Radiologic examinati on of knee Dr. Ken Contreras Work Phone: Start: 05-27-2023 Plain X-ray of tibia and fibula Dr. Ken Contreras Work Phone: Start: 05-21-2023 INFLUENZA VACCINE, P RSV FREE, AGE 65+ YR, HIGH DOSE, QUADRIVALENT (FLUZONE HIGH-DOSE) Dia Older TITLE INSURANCE SALES REPRESENTATIVE.MICROBIOLOGICAL LABORATORY TECHNICIAN Work Phone: Start: 05-18-2023 Radiologic examinati on of knee Dr. Ken Contreras Work Phone: Start: 05-18-2023 CT cervical spine wi thout contrast Dr. Ken Contreras Work Phone: Start: 05-18-[address] Ken Contreras Work Phone: Start: 05-18-2023 CT of head without contrast Dr. Ken Contreras Work Phone: Start: 01-09-2023 Diagnostic radiograp hy of abdomen Dr. Ken Contreras Work Phone: Start: 08-28-2022 Computed tomography of abdomen and pelvis with contrast Dr. Ken Contreras Work Phone: Start: 08-20-[address] Afia Contreras Work Phone: Start: 07-15-2022 Fundus photography w/interpretation & report Geoff Carlos MD Work Phone: Start: 06-19-2022 Urnls dip stick/tabl et rgnt auto w/o microscopy Jennifer Thayer APRN.MICROBIOLOGICAL LABORATORY TECHNICIAN Work Phone: Start: 03-12-2022 End: 03-12-2022 Visual field xm uni/bi w/interp extended exam Geoff Carlos MD Work Phone: Start: 01-23-2022 Radiologic exam chest 2 views Ken Contreras MD Work Phone: Start: 01-23-2022 [employer] COVI D-19 VACCINE, AGE 12+ YR (SEVILLA TOP) Ken Contreras MD Work Phone: Start: 04-15-2017 End: 07-23-2017 DMBecca Arenas MANAGER OF TIRES SALES Work Phone: Start: 04-15-2017 End: 07-23-2017 Follow Up Appt 3 months Irene rangel MICROBIOLOGICAL LABORATORY TECHNICIAN Work Phone: Start: 03-05-2017 End: 03-05-2017 Thyrotropin [Units/volume] in Serum or Plasma Jaswant Miller DO Work Phone: Start: 11-27-2016 End: 12-16-2016 TANVIR Arenas MANAGER OF TIRES SALES Work Phone: Start: 11-27-2016 End: 12-16-2016 Follow Up Appt 2 months Irene Garcia er MICROBIOLOGICAL LABORATORY TECHNICIAN Work Phone: Start: 11-27-2016 End: 12-16-2016 Pulmonary Function Test - complete Irene Garcia MICROBIOLOGICAL LABORATORY TECHNICIAN Work Phone: Start: 11-27-2016 End: 12-16-2016 Pulmonary stress test/simple Irene Garcia MICROBIOLOGICAL LABORATORY TECHNICIAN Work Phone: Plan of Treatment Date Care Activity Detail Author Start: 05-21-2033 Urine microalbumin profile DTaP,Tdap,Td Vaccine (3 - Td or Tdap) [facility] Start: 01-27-2028 Diabetes Screening Diabetes Screening [facility] Start: 05-27-2027 Diabetes Screening Diabetes Screening [facility] Start: 10-05-2026 Diabetes Screening Diabetes Screening [facility] Start: 07-02-2026 Diabetes Screening Diabetes Screening [facility] Start: 02-20-2026 DIABETES SCREEN DIABETES SCREEN [facility] Start: 02-20-2026 Diabetes Screening Diabetes Screening [facility] Start: 01-26-2026 DIABETES SCREEN DIABETES SCREEN [facility] Start: 01-05-2026 Medicare Annual Wellness Visit Medicare Annual Wellness Visit [facility] Start: 10-11-2025 RSV Vaccine (1 - 1-dose 75+ series) RSV Vaccine (1 - 1-dose 75+ series) [facility] Comment on above: Postponed from 02/22/2012 (Declined at t his time) Start: 07-25-2025 DIABETES SCREEN DIABETES SCREEN [facility] Start: 05-27-2025 Covid-19 Vaccine () Covid-19 Vaccine () [facility] Comment on above: Postponed from 05/08/2024 (Declined at t his time) Start: 05-27-2025 Covid-19 Vaccine ( season) Covid-19 Vaccine ( season) [facility] Comment on above: Postponed from 05/08/2024 (Declined at t his time) Start: 05-08-2025 Influenza vaccination Influenza Vaccine (#1) [facility] Start: 04-11-2025 End: 04-11-2025 Patient encounter procedure 04/11/2025 2:00 PM EDT Office Visit [facility] [place] [address] [place] [address] Dia Lopez, TITLE INSURANCE SALES REPRESENTATIVE.MICROBIOLOGICAL LABORATORY TECHNICIAN [address] [place], [place] [id number] medicare 6 months [facility] [place] Comment on above: medicare 6 months Start: 04-04-2025 End: 04-04-2025 Patient encounter procedure 04/04/2025 2:45 PM EDT Office Visit Pulmonary Medicine [address] [place] [address] Ashely Miller MD [address] [place], [place] [id number] 4m f/up Pulmonary Medicine Comment on above: 4m f/up Start: 03-23-2025 End: 03-23-2025 Patient encounter procedure 03/23/2025 1:15 PM EDT Office Visit Allergy [address] [address] Sanjana Blake MD [address] [place], [place] [id number] I would like to know what reactions I might get. Allergy Comment on above: I would like to know what reactions I mi ght get. Start: 03-02-2025 End: 03-02-2025 Patient encounter procedure 03/02/2025 1:40 PM EDT Office Visit [facility] [place] [address] [place] [address] Ken Contreras MD [address] [place] [address] 4 week follow-up [facility] [place] Comment on above: 4 week follow-up Start: 02-14-2025 End: 02-14-2025 Patient encounter procedure 02/14/2025 1:15 PM EDT Office Visit Allergy [address] [id number] Sanjana Blake MD [address] [place], [place] [id number] I would like to know what reactions I might get. Allergy Comment on above: I would like to know what reactions I mi ght get. Start: 02-03-2025 End: 02-03-2025 ambulatory PULM LAB [facility] Comment on above: MARTINES (dyspnea on exertion) [R06.09] Start: 02-02-2025 End: 02-02-2025 Patient encounter procedure 02/02/2025 3:20 PM EDT Office Visit [facility] [place] [address] [place] [address] Ken Contreras MD [address] [place] [address] 4 week follow up [facility] [place] Comment on above: 4 week follow up Start: 01-26-2025 End: 04-27-2025 25-hydroxyvitamin D3 [Mass/volume] in Serum or Plasma VITAMIN D 25 HYDROXY Lab Routine Vitamin D deficiency Expected: 01/26/2025, Expires: 04/27/2025 [facility] Comment on above: Expected: 01/26/2025, Expires: Start: 01-26-2025 End: 04-27-2025 Basic metabolic 2000 panel - Serum or Plasma BASIC METABOLIC PANEL Lab Routine Stage 3 chronic kidney disease, unspecified whether stage 3a or 3b CKD (HCC) Expected: 01/26/2025, Expires: 04/27/2025 [facility] Work Phone: Comment on above: Expected: 01/26/2025, Expires: Start: 01-26-2025 End: 04-27-2025 Thyrotropin [Units/volume] in Serum or Plasma THYROID STIMULATING HORMONE Lab Routine Acquired hypothyroidism Expected: 01/26/2025, Expires: 04/27/2025 [facility] Comment on above: Expected: 01/26/2025, Expires: Start: 01-26-2025 End: 01-26-2025 ambulatory 01/26/2025 1:30 PM EDT Results Only [place] Burkett [facility] Laboratory [address] [place] [address] [place] E[place] [facility] Start: 01-25-2025 End: 01-25-2025 Patient encounter procedure 01/25/2025 4:00 PM EDT Office Visit Geriatrics [address] [facility] [place] [address] Cami Mars MD [address] [facility] [place] [address] 6 wk follow up Geriatrics Comment on above: 6 wk follow up Start: 01-16-2025 DIABETES SCREEN DIABETES SCREEN [facility] Start: 01-11-2025 End: 01-11-2025 Patient encounter procedure 01/11/2025 3:00 PM EDT Office Visit PHYSICAL MEDICINE & REHAB [address] [address] Ailyn Bonner APRN.MICROBIOLOGICAL LABORATORY TECHNICIAN [address] [place] [address] Return in about 6 months (around 01/04/2025). [facility] Comment on above: Return in about 6 months (around 01/05/20). Start: 01-05-2025 End: 01-05-2025 Patient encounter procedure Internal Med [facility] [place] Comment on above: 6 week f/u-lower back pain/hip pain wellness exam Start: 12-16-2024 End: 12-16-2024 Patient encounter procedure 12/16/2024 11:00 AM EDT Office Visit Orthopaedics [address] [address] Ruben Ferrara PA-C [address] [address] Left hip pain Orthopaedics Comment on above: Left hip pain Start: 12-14-2024 End: 03-15-2025 25-hydroxyvitamin D3 [Mass/volume] in Serum or Plasma [facility] Comment on above: Expected: 12/14/2024, Expires: Start: 12-14-2024 End: 03-15-2025 Ferritin [Mass/volume] in Serum or Plasma [facility] Comment on above: Expected: 12/14/2024, Expires: Start: 12-14-2024 End: 03-15-2025 Iron and Iron binding capacity panel - Serum or Plasma [facility] Work Phone: Comment on above: Expected: 12/14/2024, Expires: Start: 12-14-2024 End: 12-14-2024 Patient encounter procedure 12/14/2024 1:30 PM EDT Office Visit Geriatrics [address] [facility] [place] [address] Cami Mars MD [address] [facility] [place] [address] Fatigue, unspecified type [R53.83] Geriatrics Comment on above: Fatigue, unspecified type [R53.83] Start: 10-20-2024 End: 10-20-2024 Patient encounter procedure 10/20/2024 1:30 PM EST Office Visit Pulmonary Medicine [address] [facility] [place] [address] Ashely Miller MD [address] [facility] [address] Bronchiectasis without complication (HCC) [J47.9]; Nocturnal hypoxia [G47.34] Pulmonary Medicine Comment on above: Bronchiectasis without complication (HCC ) [J47.9]; Nocturnal hypoxia [G47.34] Start: 10-11-2024 End: 10-11-2024 Patient encounter procedure 10/11/2024 2:40 PM EST Office Visit [facility] Medicine [place] [address] [place] [address] Dia Lopez, TITLE INSURANCE SALES REPRESENTATIVE.MICROBIOLOGICAL LABORATORY TECHNICIAN [address] [facility] [place] [address] 6 mo follow up [facility] [place] Comment on above: 6 mo follow up Start: 10-04-2024 End: 10-04-2024 Patient encounter procedure 10/04/2024 2:40 PM EST Office Visit [facility] Medicine [place] [address] [place] [address] Dia Lopez, TITLE INSURANCE SALES REPRESENTATIVE.MICROBIOLOGICAL LABORATORY TECHNICIAN [address] [place] [address] 6 mo follow up [facility] [place] Comment on above: 6 mo follow up Start: 09-30-2024 End: 09-30-2024 Patient encounter procedure 09/30/2024 2:20 PM EST Office Visit [facility] Medicine [place] [address] [facility] [place] [address] Dia Lopez, TITLE INSURANCE SALES REPRESENTATIVE.MICROBIOLOGICAL LABORATORY TECHNICIAN [address] [place] [address] 6 month follow up [facility] [place] Comment on above: 6 month follow up Start: 09-30-2024 Covid-19 Vaccine () Covid-19 Vaccine () [facility] Comment on above: Postponed from 05/08/2023 (Declined at t his time) Start: 09-07-2024 Advance Directive Discussion Advance Directive Discussion [facility] Start: 09-05-2024 [facility] Start: 09-05-2024 [facility] Start: 08-08-2024 Incentive spirometry [facility] Start: 08-08-2024 End: 08-08-2024 [facility] Start: 07-18-2024 DIABETES SCREEN DIABETES SCREEN [facility] Start: 07-08-2024 End: 07-08-2024 Patient encounter procedure Neurology Comment on above: follow up after sleep test follow up after slee p test, need results from [facility] Start: 07-06-2024 End: 07-06-2024 Patient encounter procedure 07/06/2024 3:00 PM EDT Office Visit PHYSICAL MEDICINE & REHAB [address] [address] Ailyn Bonner, TITLE INSURANCE SALES REPRESENTATIVE.MICROBIOLOGICAL LABORATORY TECHNICIAN [address] [place] [address] 6 month follow up [facility] Comment on above: 6 month follow up Start: 06-23-2024 End: 06-23-2024 ambulatory 06/23/2024 1:15 PM EDT OT/PT/Speech Visit [facility] [address] [place] [address] Jackie Lainez, PT I60.9 (ICD-10-CM) - Subarachnoid hemorrhage (HCC) [facility] Comment on above: I60.9 (ICD-10-CM) - Subarachnoid hemorrh age (HCC) Start: 06-16-2024 End: 06-16-2024 ambulatory 06/16/2024 1:15 PM EDT OT/PT/Speech Visit [facility] [address] [place] [address] Jackie Lainez, PT I60.9 (ICD-10-CM) - Subarachnoid hemorrhage (HCC) [facility] Comment on above: I60.9 (ICD-10-CM) - Subarachnoid hemorrh age (HCC) Start: 06-09-2024 End: 06-09-2024 ambulatory 06/09/2024 11:45 AM EDT OT/PT/Speech Visit [facility] [address] [place] [address] [facility]ENER [address] [place] [address] I60.9 (ICD-10-CM) - Subarachnoid hemorrhage (HCC) [facility] Comment on above: I60.9 (ICD-10-CM) - Subarachnoid hemorrh age (HCC) Start: 06-02-2024 End: 06-02-2024 ambulatory 06/02/2024 1:15 PM EDT OT/PT/Speech Visit [facility] [address] [place] [address] Jackie Lainez, PT I60.9 (ICD-10-CM) - Subarachnoid hemorrhage (HCC) [facility] Comment on above: I60.9 (ICD-10-CM) - Subarachnoid hemorrh age (HCC) Start: 05-27-2024 End: 08-26-2024 Basic metabolic 2000 panel - Serum or Plasma [facility] Comment on above: Expected: 05/27/2024, Expires: Start: 05-27-2024 End: 08-26-2024 Natriuretic peptide.B prohormone N-Terminal [Mass/volume] in Serum or Plasma [facility] Comment on above: Expected: 05/27/2024, Expires: Start: 05-27-2024 End: 05-27-2024 Patient encounter procedure 05/27/2024 8:00 AM EDT Office Visit [facility] [place] [address] [place] [address] Ken Contreras MD [address] [place] [address] follow up per PT [facility] [place] Comment on above: follow up per PT Start: 05-26-2024 End: 05-26-2024 ambulatory 05/26/2024 3:45 PM EDT OT/PT/Speech Visit [facility] [address] [place] [address] Jackie Lainez PT I60.9 (ICD-10-CM) - Subarachnoid hemorrhage (HCC) [facility] Comment on above: I60.9 (ICD-10-CM) - Subarachnoid hemorrh age (HCC) Start: 05-26-2024 End: 05-26-2024 Patient encounter procedure 05/26/2024 1:50 PM EDT Office Visit Cardiology [address] [place] [address] Chest discomfort [R07.89] Cardiology Comment on above: Chest discomfort [R07.89] Start: 05-19-2024 End: 05-19-2024 ambulatory 05/19/2024 12:30 PM EDT OT/PT/Speech Visit [facility] [address] [place] [address] Jackie Lainez, PT I60.9 (ICD-10-CM) - Subarachnoid [facility] (HCC) [facility] Comment on above: I60.9 (ICD-10-CM) - Subarachnoid hemorrh age (HCC) Start: 05-16-2024 End: 05-16-2024 Patient encounter procedure 05/16/2024 11:30 AM EDT Office Visit Otolaryngology [address] [place] [address] Rhoda Alcazar MD [address] [place] [address] Odynophagia [R13.10] Otolaryngology Comment on above: Odynophagia [R13.10] Start: 05-13-2024 End: 05-13-2024 Patient encounter procedure 05/13/2024 9:40 AM EDT Office Visit [facility] [place] [address] [place] [address] Dia Lopez, TITLE INSURANCE SALES REPRESENTATIVE.MICROBIOLOGICAL LABORATORY TECHNICIAN [address] [place] [address] Evaluate for hypoxia per [facility] [place] Comment on above: Evaluate for hypoxia per [facility] Start: 05-12-2024 End: 05-12-2024 ambulatory 05/12/2024 11:45 AM EDT OT/PT/Speech Visit [facility] [address] [facility] [place] [address] Kaela Brasher, FLAME HARDENER [address] [place] [address] I60.9 (ICD-10-CM) - Subarachnoid hemorrhage (HCC) [facility] Comment on above: I60.9 (ICD-10-CM) - Subarachnoid hemorrh age (HCC) Start: 05-08-2024 Covid-19 Vaccine ( season) Covid-19 Vaccine ( season) [facility] Start: 05-08-2024 Influenza vaccination Influenza Vaccine (#1) [facility] Start: 05-05-2024 End: 05-05-2024 ambulatory 05/05/2024 12:30 PM EDT OT/PT/Speech Visit [facility] [address] [place] [address] Jackie Lainez, PT I60.9 (ICD-10-CM) - Subarachnoid hemorrhage (HCC) [facility] Comment on above: I60.9 (ICD-10-CM) - Subarachnoid hemorrh age (HCC) Start: 05-03-2024 End: 05-03-2024 Patient encounter procedure 05/03/2024 10:00 AM EDT Office Visit Neurology [address] [place] [address] Hypersomnia [G47.10]; 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]; Insomnia, unspecified type [G47.00]; Snoring [R06.83] Neurology Comment on above: Hypersomnia [G47.10]; Delayed sleep phas e syndrome [G47.21]; Insomnia, unspecified type [G47.00]; Snoring [R06.83] Start: 04-26-2024 End: 04-26-2024 ambulatory 04/26/2024 3:00 PM EDT OT/PT/Speech Visit [facility] [address] [place] [address] Jackie Lainez, PT Subarachnoid hemorrhage (HCC) [I60.9] [facility] Comment on above: Subarachnoid hemorrhage (HCC) [I60.9] Start: 04-21-2024 End: 04-21-2024 Follow-up encounter 04/21/2024 1:00 PM EDT [facility] [address] [place] [place] [phone] Michelle Vazquez, KALEE.[facility] [address] [facility] [place] [address] 3 month follow up. Please call [phone] [facility] Comment on above: 3 month follow up. Please call Start: 04-18-2024 End: 04-18-2024 Patient encounter procedure 04/18/2024 8:00 AM EDT Office Visit Neurology [address] [place] [address] Kaya Cartwright Jr., MD [address] [phone] Sleep apnea, unspecified type [G47.30] Neurology Comment on above: Sleep apnea, unspecified type [G47.30] Start: 03-30-2024 End: 03-30-2024 Patient encounter procedure 03/30/2024 3:00 PM EDT Office Visit [facility] [place] [address] [place], [place] [id number] Dia Lopez, TITLE INSURANCE SALES REPRESENTATIVE.MICROBIOLOGICAL LABORATORY TECHNICIAN [address] [place] [address] 6 month follow up [facility] Comment on above: 6 month follow up Start: 02-26-2024 End: 02-26-2024 Patient encounter procedure 02/26/2024 1:00 PM EDT OT/PT/Speech Visit [facility] [place] [phone] Jose Diaz CCC-TERMITE CONTROL SERVICE REPRESENTATIVE [address] [place] [address] Personal history of traumatic brain injury [facility] Comment on above: Personal history of traumatic brain inju ry Start: 01-27-2024 End: 01-27-2024 Patient encounter procedure 01/27/2024 3:30 PM EDT OT/PT/Speech Visit [facility] [address] [place] [phone] Jose Diaz CCC-TERMITE CONTROL SERVICE REPRESENTATIVE [address] [place] [address] Personal history of traumatic brain injury [Z87.820] [facility] Comment on above: Personal history of traumatic brain inju thania [Z87.820] Start: 01-21-2024 End: 01-21-2024 Patient encounter procedure 01/21/2024 2:00 PM EDT Office Visit [facility] [address] [facility] [place] [phone] Michelle Vazquez APRN.MICROBIOLOGICAL LABORATORY TECHNICIAN [address] [place] [address] 3 mos fu [facility] Comment on above: 3 mos fu Start: 10-02-2023 [facility] Start: 08-01-2023 COVID-19 VACCINE (4 - Booster for Leon series) COVID-19 VACCINE (4 - Booster for Leon series) [facility] Comment on above: Postponed from 03/20/2022 (Declined at t his time) Start: 06-19-2023 Urine microalbumin profile DTAP,TDAP,TD (2 - Td or Tdap) [facility] Comment on above: Postponed from 06/22/2022 (Declined at t his time) Start: 05-08-2023 Covid-19 Vaccine ( season) Covid-19 Vaccine ( season) [facility] Start: 05-08-2023 Influenza vaccination INFLUENZA (#1) [facility] Start: 03-06-2023 Influenza vaccination INFLUENZA (#1) [facility] Comment on above: Postponed from 05/08/2022 (Declined at t his time) Start: 01-29-2023 End: 03-31-2023 Basic metabolic 2000 panel - Serum or Plasma BASIC METABOLIC PNL Lab Routine Essential hypertension Expected: 01/29/2023, Expires: 03/31/2023 [facility] Work Phone: Comment on above: Expected: 01/29/2023, Expires: Start: 01-29-2023 End: 03-31-2023 Thyrotropin [Units/volume] in Serum or Plasma TSH BLD Lab Routine Acquired hypothyroidism Expected: 01/29/2023, Expires: 03/31/2023 [facility] Work Phone: Comment on above: Expected: 01/29/2023, Expires: 3 Start: 09-07-2022 ADVANCE DIRECTIVE DISCUSSION ADVANCE DIRECTIVE DISCUSSION [facility] Start: 07-26-2022 End: 09-25-2022 ALK PHOS ISOENZYM BL ALK PHOS ISOENZYM BL Lab Routine Elevated alkaline phosphatase measurement Expected: 07/26/2022, Expires: 09/25/2022 [facility] Work Phone: Comment on above: Expected: 07/26/2022, Expires: 3 Start: 07-26-2022 End: 09-25-2022 Basic metabolic 2000 panel - Serum or Plasma BASIC METABOLIC PNL Lab Routine Essential hypertension Expected: 07/26/2022, Expires: 09/25/2022 [facility] Work Phone: Comment on above: Expected: 07/26/2022, Expires: 3 Start: 07-26-2022 End: 09-25-2022 CBC panel - Blood by Automated count CBC Lab Routine Essential hypertension Expected: 07/26/2022, Expires: 09/25/2022 [facility] Work Phone: Comment on above: Expected: 07/26/2022, Expires: 3 Start: 07-26-2022 End: 09-25-2022 LIPID PANEL BASIC LIPID PANEL BASIC Lab Routine Essential hypertension Expected: 07/26/2022, Expires: 09/25/2022 [facility] Work Phone: Comment on above: Expected: 07/26/2022, Expires: 3 Start: 07-26-2022 End: 09-25-2022 VITAMIN D 25 HYDROXY VITAMIN D 25 HYDROXY Lab Routine Vitamin D deficiency Expected: 07/26/2022, Expires: 09/25/2022 [facility] Work Phone: Comment on above: Expected: 07/26/2022, Expires: 3 Start: 07-07-2022 End: 09-06-2022 Bacteria identified in Urine by Culture URINE CULTURE Microbiology Routine Recurrent UTI (urinary tract infection) Expected: 07/07/2022 (Approximate), Expires: 09/06/2022 [facility] Work Phone: Comment on above: Expected: 07/07/2022 (Approximate), Expi res: 09/06/2022 Start: 07-07-2022 End: 09-06-2022 Urinalysis complete panel - Urine URINALYSIS, WITH MICROSCOPIC Lab Routine Recurrent UTI (urinary tract infection) Expected: 07/07/2022 (Approximate), Expires: 09/06/2022 [facility] Work Phone: Comment on above: Expected: 07/07/2022 (Approximate), Expi res: 09/06/2022 Start: 06-22-2022 Urine microalbumin profile DTAP,TDAP,TD (2 - Td or Tdap) [facility] Start: 05-08-2022 Influenza vaccination INFLUENZA (#1) [facility] Start: 03-20-2022 COVID-19 VACCINE (4 - Booster for Leon series) COVID-19 VACCINE (4 - Booster for Leon series) [facility] Start: 12-31-2021 SHINGRIX VACCINE (3 of 3) SHINGRIX VACCINE (3 of 3) [facility] Start: 09-07-2021 ADVANCE DIRECTIVE DISCUSSION ADVANCE DIRECTIVE DISCUSSION [facility] Start: 01-20-2018 End: 01-20-2018 Appointment Appointment [facility] Phone: Start: 07-27-2017 End: 07-27-2017 Appointment Appointment [facility] Work Phone: Start: 07-27-2017 End: 04-15-2017 Ct thorax w/o contrast material CT Chest without contrast [facility] Phone: Start: 07-24-2017 End: 07-24-2017 [facility] Work Phone: Start: 07-24-2017 End: 07-24-2017 Follow Up Appt 6 months Follow Up Appt 6 months [facility] Phone: Start: 07-24-2017 End: 07-24-2017 Appointment Appointment [facility] Work Phone: Start: 05-05-2017 End: 05-05-2017 Esophagogastroduodenoscopy transoral diagnostic EGD; diagnostic [facility] Work Phone: Start: 04-15-2017 End: 07-23-2017 D[facility] D[facility] Work Phone: Start: 04-15-2017 End: 07-23-2017 Follow Up Appt 3 months Follow Up Appt 3 months [facility] Work Phone: Start: 03-05-2017 End: 03-05-2017 [facility] Work Phone: Start: 03-05-2017 End: 03-05-2017 Follow Up Appt 6 weeks Follow Up Appt 6 weeks [facility] Work Phone: Start: 03-05-2017 End: 03-05-2017 Thyroid stimulating hormone (TSH) *TSH [facility] Work Phone: Start: 02-23-2017 End: 02-23-2017 Follow Up as scheduled Follow Up as scheduled [facility] Work Phone: Start: 01-08-2017 End: 01-11-2017 Ct thorax w/o contrast material CT Chest without contrast [facility] Work Phone: Start: 01-08-2017 End: 01-08-2017 DMB D[facility] Work Phone: Start: 01-08-2017 End: 01-08-2017 Follow Up Appt 2 months Follow Up Appt 2 months [facility] Work Phone: Start: 11-27-2016 End: 12-16-2016 DMB D[facility] Work Phone: Start: 11-27-2016 End: 12-16-2016 Follow Up Appt 2 months Follow Up Appt 2 months [facility] Work Phone: Start: 11-27-2016 End: 12-16-2016 Pulmonary Function Test - complete Pulmonary Function Test - complete [facility] Work Phone: Start: 11-27-2016 End: 12-16-2016 Pulmonary stress test/simple Pulmonary stress testing; simple (eg, 6-minute walk) [facility] Work Phone: Start: 02-22-2012 RSV Vaccine (1 - 1-dose 75+ series) RSV Vaccine (1 - 1-dose 75+ series) [facility] Start: 11-12-2011 SHINGRIX VACCINE (2 of 3) SHINGRIX VACCINE (2 of 3) [facility] Start: 1997 RSV Vaccine (1 - 1-dose 60+ series) RSV Vaccine (1 - 1-dose 60+ series) [facility] Bacteria identified in Urine by Culture URINE CULTURE Microbiology Routine Dysuria 06/19/2022 1:19 PM EDT [facility] Work Phone: ECG COMPLETE ECG COMPLETE ECG Routine Chest discomfort Ordered: 05/13/2024 [facility] Work Phone: Comment on above: Ordered: 05/13/2024 End: 05-13-2025 Echocardiography ECHO Cardiology Routine Chest discomfort Nocturnal hypoxia 1 Occurrences starting 05/13/2024 until 05/13/2025 [facility] Comment on above: 1 Occurrences starting 05/13/2024 until 05/13/2025 HOME SLEEP APNEA TEST (HSAT) PANCHO E SLEEP APNEA TEST (HSAT) Procedures Routine Hypersomnia Delayed sleep phase syndrome Insomnia, unspecified type Snoring 1 Occurrences starting 04/18/2024 [facility] Work Phone: Comment on above: 1 Occurrences starting 04/18/2024 LUNG VOLUMES LUNG VOLUMES PFT Routine MARTINES (dyspnea on exertion) 02/03/2025 2:22 PM EDT [facility] Work Phone: End: 08-06-2024 SOPHIE DIAGNOSTIC LEFT SOPHIE DIAGNOSTIC LEFT Radiology Routine Abnormal screening mammogram 1 Occurrences starting 07/08/2023 until 08/06/2024 [facility] Work Phone: Comment on above: 1 Occurrences starting 07/08/2023 until 08/06/2024 End: 06-19-2024 SOPHIE SCREENING SOPHIE SCREENING Radiology Routine Screening mammogram for breast cancer 1 Occurrences starting 05/21/2023 until 06/19/2024 [facility] Work Phone: Comment on above: 1 Occurrences starting 05/21/2023 until 06/19/2024 OXIMETRY - NOCTURNAL OXIMETRY - NOCTURNAL Procedures Routine Pulmonary hypertension (HCC) Ordered: 10/20/2024 [facility] Work Phone: Comment on above: Ordered: 10/20/2024 OXIMETRY - NOCTURNAL OXIMETRY - NOCTURNAL Procedures Routine Chronic obstructive pulmonary disease, unspecified COPD type (HCC) Ordered: 12/13/2024 [facility] Work Phone: Comment on above: Ordered: 12/13/2024 Patient Education [facility] Work Phone: Patient referral [facility] Work Phone: End: 05-16-2025 Polysomnogram POLYSOMNOGRAM (PSG) Procedures Routine Nocturnal hypoxia Sleep apnea-like behavior Class 1 obesity with body mass index (BMI) of 31.0 to 31.9 in adult, unspecified obesity type, unspecified whether serious comorbidity present Hypersomnia Insomnia, unspecified type Snoring 1 Occurrences starting 05/16/2024 until 05/16/2025 [facility] Work Phone: Comment on above: 1 Occurrences starting 05/16/2024 until 05/16/2025 SPIROMETRY - BASELIN E AND POST DILATOR SPIROMETRY - BASELINE AND POST DILATOR PFT Routine MARTINES (dyspnea on exertion) 02/03/2025 2:22 PM EDT [facility] Work Phone: End: 08-06-2024 US BREAST LTD LEFT US BREAST LTD LEFT Radiology Routine Abnormal screening mammogram 1 Occurrences starting 07/08/2023 until 08/06/2024 [facility] Work Phone: Comment on above: 1 Occurrences starting 07/08/2023 until 08/06/2024 End: 06-26-2025 XR Chest PA and Lateral XR CHEST 2V FRONTAL/LAT Radiology Routine Oxygen desaturation 1 Occurrences starting 05/27/2024 until 06/26/2025 [facility] Work Phone: Comment on above: 1 Occurrences starting 05/27/2024 until 06/26/2025 XR Chest PA and Lateral XR CHEST 2V FRONTAL/LAT Radiology Routine Oxygen desaturation 05/27/2024 9:18 AM EDT [facility] XR Pelvis and Hip - left AP and Lateral frog XR HIP GENERAL 3V PELV/AP/LAT LEFT Radiology Routine Hip pain, left 11/24/2024 7:04 PM EDT [facility] Work Phone: End: 12-24-2025 XR Pelvis and Hip - left AP and Lateral frog XR HIP GENERAL 3V PELV/AP/LAT LEFT Radiology Routine Hip pain, left 1 Occurrences starting 11/24/2024 until 12/24/2025 [facility] Work Phone: Comment on above: 1 Occurrences starting 11/24/2024 until 12/24/2025 [facility] Immunizations Immunization Date Immunization Notes Care Provider [facility] 05-27-2024 influenza, high dose seasonal, preservative-free Ken Contreras MD Work Phone: [facility] 05-27-2024 influenza virus vaccine, unspecified formulation Dia Hussain TITLE INSURANCE SALES REPRESENTATIVE.MICROBIOLOGICAL LABORATORY TECHNICIAN Work Phone: [facility] 05-21-2023 TD(adult) unspecifie d formulation Dia Older TITLE INSURANCE SALES REPRESENTATIVE.MICROBIOLOGICAL LABORATORY TECHNICIAN Work Phone: [facility] Work Phone: 05-21-2023 influenza (HD-IIV4) vaccine, age 65+ yr, high dose, quadrivalent, PF (FLUZONE HIGH-DOSE) Dia Older TITLE INSURANCE SALES REPRESENTATIVE.MICROBIOLOGICAL LABORATORY TECHNICIAN Work Phone: [facility] 05-21-2023 tetanus and diphther ia toxoids, adsorbed, preservative free, for adult use (5 Lf of tetanus toxoid and 2 Lf of diphtheria toxoid) Dia Older TITLE INSURANCE SALES REPRESENTATIVE.MICROBIOLOGICAL LABORATORY TECHNICIAN Work Phone: [facility] 05-21-2023 influenza virus vaccine, unspecified formulation Dia Hussain TITLE INSURANCE SALES REPRESENTATIVE.MICROBIOLOGICAL LABORATORY TECHNICIAN Work Phone: [facility] 08-19-2022 influenza, injectabl e, quadrivalent, preservative free Dr. Ken Contreras Work Phone: [facility] 08-19-2022 influenza, seasonal, injectable Dr. Ken Contreras Work Phone: [facility] 04-14-2022 zoster vaccine recombinant Ken Contreras MD Work Phone: [facility] 01-23-2022 COVID-19 vaccine, ag e 12+ yr ([employer] [facility]) Ken Contreras MD Work Phone: [facility] Work Phone: 11-05-2021 zoster vaccine recombinant Ken Contreras MD Work Phone: [facility] Work Phone: 05-30-2021 influenza, injectabl e, quadrivalent, preservative free Dr. Ken Contreras Work Phone: [facility] 05-30-2021 influenza, seasonal, injectable Dr. Ken Contreras Work Phone: [facility] Work Phone: 05-30-2021 influenza, seasonal, injectable, preservative free Dia Older TITLE INSURANCE SALES REPRESENTATIVE.MICROBIOLOGICAL LABORATORY TECHNICIAN Work Phone: [facility] Work Phone: 11-15-2020 COVID-19 vaccine (LEON) Dia Older TITLE INSURANCE SALES REPRESENTATIVE.MICROBIOLOGICAL LABORATORY TECHNICIAN Work Phone: [facility] Work Phone: 07-04-2020 influenza, high-dose , quadrivalent vaccine (FLUZONE HIGH DOSE QUADRIVALENT) Dia Older TITLE INSURANCE SALES REPRESENTATIVE.MICROBIOLOGICAL LABORATORY TECHNICIAN Work Phone: [facility] Work Phone: 07-07-2019 influenza, high dose seasonal, preservative-free Dia Older TITLE INSURANCE SALES REPRESENTATIVE.MICROBIOLOGICAL LABORATORY TECHNICIAN Work Phone: [facility] Work Phone: 06-30-2018 influenza, high dose seasonal, preservative-free Dia Older TITLE INSURANCE SALES REPRESENTATIVE.MICROBIOLOGICAL LABORATORY TECHNICIAN Work Phone: [facility] Work Phone: 06-24-2017 influenza, high dose seasonal, preservative-free Dia Older TITLE INSURANCE SALES REPRESENTATIVE.MICROBIOLOGICAL LABORATORY TECHNICIAN Work Phone: [facility] 06-24-2017 pneumococcal polysaccharide vaccine, 23 valent Dia Older TITLE INSURANCE SALES REPRESENTATIVE.MICROBIOLOGICAL LABORATORY TECHNICIAN Work Phone: [facility] 05-20-2016 influenza, high dose seasonal, preservative-free Dia Older TITLE INSURANCE SALES REPRESENTATIVE.MICROBIOLOGICAL LABORATORY TECHNICIAN Work Phone: [facility] 05-12-[address] Ken Contreras Work Phone: [facility] 05-12-2016 influenza, seasonal, injectable, preservative free Dia Older TITLE INSURANCE SALES REPRESENTATIVE.MICROBIOLOGICAL LABORATORY TECHNICIAN Work Phone: [facility] Work Phone: 09-24-2015 influenza, high dose seasonal, preservative-free Dia Older TITLE INSURANCE SALES REPRESENTATIVE.MICROBIOLOGICAL LABORATORY TECHNICIAN Work Phone: [facility] 09-12-2014 pneumococcal conjuga te vaccine, 13 valent Dia Older TITLE INSURANCE SALES REPRESENTATIVE.MICROBIOLOGICAL LABORATORY TECHNICIAN Work Phone: [facility] 08-07-2014 influenza, seasonal, injectable Dia Older TITLE INSURANCE SALES REPRESENTATIVE.MICROBIOLOGICAL LABORATORY TECHNICIAN Work Phone: [facility] Work Phone: 06-27-2013 influenza virus vaccine, unspecified formulation Dia Older TITLE INSURANCE SALES REPRESENTATIVE.MICROBIOLOGICAL LABORATORY TECHNICIAN Work Phone: [facility] 06-22-2012 influenza virus vaccine, unspecified formulation Dia Older TITLE INSURANCE SALES REPRESENTATIVE.MICROBIOLOGICAL LABORATORY TECHNICIAN Work Phone: [facility] 06-22-2012 tetanus toxoid, redu natalee diphtheria toxoid, and acellular pertussis vaccine, adsorbed Dia Older TITLE INSURANCE SALES REPRESENTATIVE.MICROBIOLOGICAL LABORATORY TECHNICIAN Work Phone: [facility] 09-17-2011 zoster vaccine, live Dia Old er TITLE INSURANCE SALES REPRESENTATIVE.MICROBIOLOGICAL LABORATORY TECHNICIAN Work Phone: [facility] 06-19-2011 influenza virus vaccine, unspecified formulation Dia Older TITLE INSURANCE SALES REPRESENTATIVE.MICROBIOLOGICAL LABORATORY TECHNICIAN Work Phone: [facility] 06-18-2010 influenza virus vaccine, unspecified formulation Dia Older TITLE INSURANCE SALES REPRESENTATIVE.MICROBIOLOGICAL LABORATORY TECHNICIAN Work Phone: [facility] 06-07-2009 influenza virus vaccine, unspecified formulation Dia Older TITLE INSURANCE SALES REPRESENTATIVE.MICROBIOLOGICAL LABORATORY TECHNICIAN Work Phone: [facility] Work Phone: 07-18-2008 influenza virus vaccine, unspecified formulation Dia Older TITLE INSURANCE SALES REPRESENTATIVE.MICROBIOLOGICAL LABORATORY TECHNICIAN Work Phone: [facility] Work Phone: 07-12-2007 influenza virus vaccine, unspecified formulation Dia Older TITLE INSURANCE SALES REPRESENTATIVE.MICROBIOLOGICAL LABORATORY TECHNICIAN Work Phone: [facility] Work Phone: 07-06-2006 influenza virus vaccine, unspecified formulation Dia Older TITLE INSURANCE SALES REPRESENTATIVE.MICROBIOLOGICAL LABORATORY TECHNICIAN Work Phone: [facility] 10-06-2005 pneumococcal polysaccharide vaccine, 23 valent Dia Older TITLE INSURANCE SALES REPRESENTATIVE.MICROBIOLOGICAL LABORATORY TECHNICIAN Work Phone: [facility] 08-13-2005 influenza virus vaccine, unspecified formulation Dia Older TITLE INSURANCE SALES REPRESENTATIVE.MICROBIOLOGICAL LABORATORY TECHNICIAN Work Phone: [facility] 01-03-2004 hepatitis B vaccine, adult dosage Dia Older TITLE INSURANCE SALES REPRESENTATIVE.MICROBIOLOGICAL LABORATORY TECHNICIAN Work Phone: [facility] Work Phone: 06-14-2003 hepatitis B vaccine, adult dosage Dia Older TITLE INSURANCE SALES REPRESENTATIVE.MICROBIOLOGICAL LABORATORY TECHNICIAN Work Phone: [facility] Work Phone: 05-15-2003 hepatitis B vaccine, adult dosage Dia Older TITLE INSURANCE SALES REPRESENTATIVE.MICROBIOLOGICAL LABORATORY TECHNICIAN Work Phone: [facility] Work Phone: Payers Date Payer Category Payer Self-pay [id number] 2016 [facility] ANTHEM ME DICARE SUPPLEMENT [id number] 2016 Unknown ANTHEM ANTHEM ME DICARE SUPPLEMENT [id number] 2016-Present [phone] [id number] [place], [place] [address] Indemnity [id number] 2016 Unknown ANTHEM ANTHEM ME DICARE SUPPLEMENT [id number] 2016-Present [id number] [place], [place] [address] Indemnity [id number] 2016 Unknown [id number] 2002 Medicare MEDICARE MEDICAR E A AND B [id number] 2002-Present [phone] [place] [address] Medicare [id number] 2002 Medicare [id number] 2002 Medicare [id number] Unknown [id number] Unknown [id number] [id number] Unknown [id number] [id number] Unknown [id number] [id number] Unknown [id number] 2.462 Unknown [id number] 2.462 Unknown [id number] Unknown [id number] Unknown [id number] [id number] Unknown [id number] [id number] Unknown [id number] [id number] Unknown [id number] [id number] Unknown [id number] Unknown [id number] Social History Date Type Detail Facility Start: 12-15-2011 End: 05-13-2024 Tobacco smoking status NHIS Ex-smoker [facility] Start: [birth year]-14-1953 End: 05-14-1965 History of tobacco use Current smoker [facility] Start: [birth year]-14-1955 End: 05-14-1965 History of tobacco use Cigarette Smoker [facility] Start: 10-08-2021 End: 02-03-2025 Alcohol intake Current drinker of alcohol (finding) [facility] Start: 07-23-2020 End: 08-01-2022 History SDOH Alcohol Frequency 3 [facility] Start: 07-23-2020 End: 08-01-2022 History SDOH Alcohol Std Drinks 1 [facility] Start: 05-01-2021 History SDOH Alcohol Comment 1/2 glass of wine twice per month [facility] Start: 01-03-2020 End: 08-01-2022 History SDOH Social Connections Phone 5 [facility] Start: 07-03-2020 End: 08-01-2022 History SDOH Social Connections Get Together 2 [facility] Start: 07-03-2020 End: 08-01-2022 History SDOH Social Connections [facility] Start: 01-03-2020 History SDOH Physica l Activity DPW 0 [facility] Start: 01-03-2020 Education 21 [facility] Start: 1935 Sex Assigned At Female [facility] Start: 10-01-2021 End: 10-02-2023 Tobacco smoking status NHIS Unknown if ever smoked [facility] Start: 11-18-2016 None [facility] Start: 11-18-2016 With [facility] Start: 11-18-2016 Non-smoker [facility] Start: 01-13-2022 End: 07-15-2022 Exposure to SARS-CoV-2 (event) Not sure [facility] Work Phone: Start: 12-15-2011 End: 01-30-2023 Cigarettes smoked current (pack per day) - Reported 0.5 [facility] Start: 12-15-2011 End: 05-13-2024 Tobacco use and exposure Smokeless tobacco non-user [facility] Start: 08-01-2022 End: 01-30-2023 Social connection and isolation panel [facility] How often do you get together with friends or relatives? Patient refused [facility] Are you now , , , , never or living with a partner? [facility] How often to you hav e a drink containing alcohol? 2-4 times a month [facility] How many standard drinks containing alcohol do you have on a typical day? 1 or 2 [facility] How often do you hav e 6 or more drinks on 1 occasion? Never [facility] Do you feel stress - tense, restless, nervous, or anxious, or unable to sleep at night because your mind is troubled all the time - these days [OSQ] Only a little [facility] The food that (I/we) bought just didn't last, and (I/we) didn't have money to get more. Never true [facility] In the past 12 month s, was there a time when you were not able to pay the mortgage or rent on time? No [facility] Start: 01-03-2020 Gender identity Identifies as female gender (finding) [facility] Start: 01-03-2020 Sexual orientation Heterosexual (fin trevor) [facility] Are you now , , , , never or living with a partner? Living with partner [facility] How often to you hav e a drink containing alcohol? Monthly or less [facility] History of tobacco use Passive smoker [facility] Do you feel stress - tense, restless, nervous, or anxious, or unable to sleep at night because your mind is troubled all the time - these days [OSQ] Not at all [facility] Start: 11-22-2024 Sex Female (finding) Therese r [facility] Procedure Code Equipment Code Equipment Origin al Text Equipment Identifier Dates ([id number]) Dual-chamber implantable pacemaker, rate-responsive [id number] FDA Start: 05-29-2021 ([id number]) Endocardial paci ng lead ()[id number] FDA Start: 05-29-2021 ([id number]) Endocardial paci ng lead ()[id number] FDA Start: 05-29-2021 Functional Status Date Assessment Result Facility 04-13-2015 Are you deaf, or do you have serious difficulty hearing No 04/13/2015 2:32 PM EDT Shayla Nguyen MA No [facility] 04-13-2015 Are you blind, or do you have serious difficulty seeing, even when wearing glasses No 04/13/2015 2:32 PM EDT Shayla Nguyen MA No [facility] 04-13-2015 Do you have serious difficulty walking or climbing stairs No 04/13/2015 2:32 PM EDT Shayla Nguyen MA No [facility] 04-13-2015 Do you have difficul ty dressing or bathing No 04/13/2015 2:32 PM EDT Shayla Nguyen MA No [facility] 04-13-2015 Because of a physica l, mental, or emotional condition, do you have difficulty doing errands alone such as visiting a physician's office or shopping No 04/13/2015 2:32 PM EDT Shayla Nguyen MA No [facility] Mental Status Date Assessment Result Facility 04-13-2015 Because of a physica l, mental, or emotional condition, do you have serious difficulty concentrating, remembering, or making decisions No 04/13/2015 2:32 PM EDT Shayla Nguyen MA [facility] Clinical Notes 04-19-2021 to 03-06-2025 Telephone Encounter - Ashely Kahn MA - 03/06/2025 12:51 PM EDTTelephone Encounter - Ashely Kahn MA - 03/06/2025 12:51 PM EDTPatient Instructions Note Date & Type Note Facility 03-06-2025 Telephone encount er Note Patient has been identified by name and date of : yes Patient phones for refill(s): Requested Prescriptions Pending Prescriptions Disp Refills LORazepam (ATIVAN) 2 mg tab 30 tablet 2 Sig: Take 1 tablet by mouth daily at bedtime for 90 days. Date of last office visit in primary care: 03/02/2025 Date of next office visit in primary care: 04/11/2025 Please advise. Thank you. Ashely Kahn MA. [facility] 03-06-2025 Miscellaneous Notes Formattin g of this note is different from the original. Patient has been identified by name and date of : yes Patient phones for refill(s): Requested Prescriptions Pending Prescriptions Disp Refills LORazepam (ATIVAN) 2 mg tab 30 tablet 2 Sig: Take 1 tablet by mouth daily at bedtime for 90 days. Date of last office visit in primary care: 03/02/2025 Date of next office visit in primary care: 04/11/2025 Please advise. Thank you. Ashely Kahn MA. documented in this encounter [facility] 03-02-2025 Instructions Ken Contreras MD - 03/02/2025 12:20 PM EDT Therapy/Counseling [facility] [address] [place] [address] [facility] [address] [place] [address] [employer] [address] [address] [facility] [address] [facility] [address] [place] [address] [facility] [address] [facility] [address] [place] [address] [facility] [address] [place] [address] [facility] [address] [facility] [place] [address] [facility] [address] [place] [address] documented in this encounter [facility] 03-02-2025 Note [facility] 03-02-2025 History of Presen t illness Narrative This note was created using NoteWriter. Subjective Patient presents with: 4 week follow-up Geoffrey Nassar is a 89 year old female. Recording using [employer] software for draft documentation of the visit was discussed with the patient/authorized fuels sales representative; all questions welcomed and answered. Patient/authorized fuels sales representative agreed to proceed Depression: - Currently taking Wellbutrin; initially experienced side effects but has since tolerated the medication. - Reports no significant improvement in energy levels. - Noted a decrease in the urge to lie down immediately after waking. - Requires 10 hours of sleep per night to feel rested. - Able to perform daily activities with more ease and reports feeling good while doing them. - Has a nurse who visits and is considering suggesting counseling. - Previous experiences with counseling were not beneficial. Fall: - Recent fall on 02/15, resulting in head and back injuries. - Tripped over her own feet, causing her to hit her head on the refrigerator and a cabinet. - Reports persistent soreness in the head and back, exacerbated by standing. - Tylenol provides no relief; taking half a hydrocodone tablet alleviates pain but causes drowsiness. - Has 7 hydrocodone tablets remaining. - Brother is assisting with daily activities and cooking; Geoffrey is not currently driving. - Workup in the ER negative (CT brain, CT neck, Xray LS spine) Hip Pain: - Diagnosed with bursitis; pain exacerbated by recent fall. - Referred to physical therapy for dry needling but has not yet started treatment. - Enjoys physical therapy at [facility] and plans to inquire about dry needling there. - Missed two weeks of physical therapy sessions recently. Dyspnea: - Relative stable. - Stress test I ordered at [facility] is scheduled next week. - [facility] for follow up. Review of Systems Constitutional: (+) low energy, (+) hypersomnia Head: (+) posterior scalp pain Musculoskeletal: (+) right hip pain, (+) right rib cage pain, (+) difficulty rising from chair Skin: (+) right rib cage bruise Neurological: (+) medication-induced drowsiness ACTIVE PROBLEM LIST Depression, Recurrent Hypothyroidism Extrinsic Asthma (Hcc) Essential Hypertension Bronchiectasis Without Complication (Hcc) Osteoarthritis Ddd (Degenerative Disc Disease), Lumbar Irritable Bowel Syndrome With Both Constipation and Diarrhea Vitamin D Deficiency Anxiety Gastroesophageal Reflux Disease With Esophagitis Tubular Adenoma of Colon Obesity, Class I, Bmi 30-34.9 Nonexudative Age-Related Macular Degeneration, Bilateral, Intermediate Dry Stage Hx of Laser Iridotomy Mixed Stress and Urge Urinary Incontinence 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, Mild Stage Recurrent Uti Asthmatic Bronchitis , Chronic (Hcc) Stage 3 Chronic Kidney Disease, Unspecified Whether Stage 3a Or 3b Ckd (Hcc) Physical Debility Oxygen Desaturation Social History Tobacco Use Smoking status: Former Current packs/day: 0.00 Average packs/day: 0.5 packs/day for 10.0 years (5.0 ttl pk-yrs) Types: Cigarettes Start date: 05/14/1955 Quit date: 05/14/1965 Years since quittin.8 Passive exposure: Past Smokeless tobacco: Never Vaping Use Vaping status: Never Used Substance Use Topics Alcohol use: Yes Comment: 1/2 glass of wine twice per month Drug use: No Current Outpatient Medications Medication Sig buPROPion XL (WELLBUTRIN XL) 300 mg 24 hr tablet Take 1 tablet by mouth once daily. LORazepam (ATIVAN) 2 mg tab Take 1 tablet by mouth daily at bedtime for 90 days. meloxicam (MOBIC) 15 mg tablet Take 1 tablet by mouth once daily. pantoprazole DR (PROTONIX) 20 mg tablet Take 2 tablets by mouth once daily. PARoxetine (PAXIL) 40 mg tablet Take 1 tablet by mouth once daily. lisinopril (ZESTRIL) 40 mg tablet Take 1 tablet by mouth once daily. lamoTRIgine (LAMICTAL) 25 mg tablet Take 1 tablet by mouth once daily. levothyroxine (SYNTHROID) 88 mcg tablet Take 1 tablet by mouth five times a week. Mondays thru Fridays. None on Saturdays and Sundays. baclofen 5 mg tablet Take 1 tablet by mouth two times a day. furosemide (LASIX) 40 mg tablet Take 40 mg by mouth once daily. BREO ELLIPTA 100-25 mcg/dose inhaler Inhale 1 Inhalation as instructed once daily. ergocalciferol 50,000 unit capsule (VITAMIN D2, DRISDOL) Take 1 capsule by mouth every 4 weeks. aspirin, enteric coated (ASPIRIN, ENTERIC COATED) 81 mg EC tablet Take 1 tablet by mouth once daily. acetaminophen (TYLENOL) 500 mg tablet Take 2 tablets by mouth every 8 hours as needed for pain. vibegron (GEMTESA) 75 mg tablet Take 1 tablet by mouth once daily. Prescribed by Dr. Hansen brimonidine-timolol (COMBIGAN) 0.2-0.5 % ophthalmic solution Use 1 Drop in the left eye twice daily. latanoprost (XALATAN) 0.005 % ophthalmic solution Use 1 Drop in both eyes daily at bedtime. vit C/E/zinc ox/trevor/lut/zeax (ICAPS AREDS2 ORAL) loratadine (CLARITIN REDITABS) 10 mg dissolvable tablet Take 1 tablet by mouth once daily as needed (allergies). DULCOLAX, BISACODYL, ORAL Take 1 tablet by mouth as needed. polyethylene glycol 3350 (MIRALAX, GLYCOLAX) 17 gram/dose powder Drink a mix of 1 scoop in 8oz of water/beverage once daily as needed for constipation. cyanocobalamin (VITAMIN B-12) 1,000 mcg tab Take 1,000 mcg by mouth once daily. albuterol HFA (VENTOLIN HFA) 90 mcg/actuation inhaler Inhale 2 Puffs as instructed every 4 hours as needed for Wheezing/Shortness of Breath. MULTIVITAMIN TAB Take one(1) tablet daily. No current facility-administered medications for this visit. Objective BP 102/68 Pulse 64 Resp 20 Wt 71.7 kg (158 lb 1.1 oz) BMI 27.90 kg/m Physical Exam Constitutional: General: She is not in acute distress. Appearance: She is not ill-appearing. HENT: Head: Atraumatic. Comments: Mild left parietal tenderness with no swelling. Cardiovascular: Heart sounds: Normal heart sounds. Pulmonary: Breath sounds: Normal breath sounds. Chest: Chest wall: Tenderness (left posterior chest with line of ecchymosis) present. No deformity or crepitus. Musculoskeletal: Cervical back: No tenderness. Neurological: General: No focal deficit present. Mental Status: She is alert. Gait: Gait abnormal. Comments: Ambulating with a cane. Psychiatric: Mood and Affect: Mood normal. Assessment and Plan 1. Depression, recurrent - ICD9: 296.30, ICD10: F33.9 (primary diagnosis) Improved. - Continue medication. 2. Hip pain, left - ICD9: 719.45, ICD10: M25.552 Chronic. - See PT at [facility]. Call for orders of dry needling if needed. 3. MARTINES (dyspnea on exertion) - ICD9: 786.09, ICD10: R06.09 - Stress test next week at [facility]. 4. Contusion of left side of back, subsequent encounter - ICD9: V58.89, 922.31, ICD10: S20.222D - Finish hydrocodone as needed for pain. Due to excessive sedation, if she will need more prn opioids, we can try Tylenol No. 3. - Continue your Wellbutrin for depression and energy as prescribed. - Review the list of mental health counseling resources provided and consider contacting a counselor when you re ready. - Apply ice to your bruised areas for comfort as needed. - Use hydrocodone sparingly for pain relief (about half a pill as needed); if it makes you too drowsy or when your supply runs out, call to discuss switching to Tylenol with codeine. - Attend your physical therapy sessions at [facility] for bursitis treatment and dry needling; they can call our office if they need an order. - Continue taking your usual morning medications as usual (late AM), after your early AM stress test next week. - Your next follow-up visit is scheduled in April--call our office if you need any refills or medication changes before then. - See the list of prospective counselors to help with your mood. Ken Contreras MD documented in this encounter [facility] 02-15-2025 Discharge summary [facility] 02-15-2025 Radiology Diagnostic study note [facility] Imaging Services [address] [place] [address] Lumbar Spine 2 or 3 Views MR#: [id number] Acct: [id number] Name: GEOFFREY NASSAR Rep #: [id number] : 1935 F 89 From: Enrique De Leon MD PCP: Dr. Ken Contreras MD Status: R EG ER Study:Lumbar Spine 2 or 3 Views Date of Exam: 02/15/25 Exam# [id number] Ordering Dr: Jamshid Valencia MD PROCEDURE: LUMBAR SPINE 2 OR 3 VIEWS 02/15/2025 REASON FOR EXAM: INJURY/PAIN TECHNIQUE: 3 view(s) of the lumbar spine COMPARISON: None. FINDINGS: No evidence of acute fracture or dislocation. Moderate discogenic degenerative changes of the visualized spine. Moderate lumbar facet arthropathy. Grade 1 anterolisthesis of L5 on S1. Levoscoliosis. Cholecystectomy clips. RAD/Lumbar Spine 2 or 3 Views IMPRESSION: No acute osseous abnormality. Spondylosis. Spondylolisthesis. Scoliosis. Reading Location: [id number] CC: Dr. Av Valencia MD; Dr. Ken Contreras MD ~ Leak Patcher: Signed [facility] 02-15-2025 Radiology Diagnostic study note [facility] Imaging Services [address] [place], [place] [id number] Spine Cervical without Contras MR#: [id number] Acct: [id number] Name: GEOFFREY NASSAR Rep #: [id number] : 1935 F 89 From: Enrique De Leon MD PCP: Dr. Ken Contreras MD Status: R ER Study:Spine Cervical without Contras Date of Exam: 02/15/25 Exam# [id number] Ordering Dr: Jamshid Valencia MD PROCEDURE: SPINE CERVICAL WITHOUT CONTRAS 02/15/2025 REASON FOR EXAM: INJURY/PAIN TECHNIQUE: Cervical spine CT without contrast. Coronal and Sagittal reconstruction series were provided. One or more dose reduction techniques were used (e.g., Automated exposure control, adjustment of the mA and/or kV according to patient size, use of iterative reconstruction technique RADIATION DOSE SUMMARY: DLP: 849.55 mGycm COMPARISON: 10/02/2023. FINDINGS: No evidence of acute fracture or dislocation. Vertebral body heights are maintained. Osseous demineralization. Grade 1 anterolisthesis of C4 on C5. Discogenic degenerative changes most pronounced atC5-6. No acute soft tissue abnormalities. CT/Spine Cervical without Contras IMPRESSION: No acute cervical spine fracture. Spondylosis. Spondylolisthesis. Reading Location: [id number] CC: Dr. Av Valencia MD; Dr. Ken Contreras MD ~ Leak Patcher: Signed [facility] 02-15-2025 Radiology Diagnostic study note [facility] Imaging Services [address] [place] [address] Brain/Head without Contrast MR#: [id number] Acct: [id number] Name: GEOFFREY NASSAR Rep #: [id number] : 1935 F 89 From: Enrique De Leon MD PCP: Dr. Ken Contrreas MD Status: R EG ER Study:Brain/Head without Contrast Date of Exa m: 02/15/25 Exam# [id number] Ordering Dr: Jamshid Valencia MD PROCEDURE: BRAIN/HEAD WITHOUT CONTRAST 02/15/2025 REASON FOR EXAM: INJURY/PAIN TECHNIQUE: Head CT without intravenous contrast. Coronal and Sagittal reconstruction serieswere provided. One or more dose reduction techniques were used (e.g., Automated exposure control, adjustment of the mA and/or kV according to patient size, use of iterative reconstruction technique. RADIATION DOSE SUMMARY: CTDlvol: 44.99+ 14.63 mGy DLP: 1096.20 mGycm COMPARISON: 10/12/2024. FINDINGS: Mild to moderate global parenchymal atrophy. Periventricular white matter hypodensity likely representing chronic microvascular ischemia. No evidence of acute hemorrhage or infarction. No extra-axial blood or fluid collections. The paranasal sinuses and mastoid air cells are well aerated. The calvarial vault and skull base are intact. CT/Brain/Head without Contrast IMPRESSION: NO ACUTE FINDINGS Reading Location: [id number] CC: Dr. Av Valencia MD; Dr. Ken Contreras MD ~ Leak Patcher: Signed [facility] 02-15-2025 Discharge summary Note Date/Time February 15, 2025 5:37pm [facility] Medical Records Department [address] [place] [address] Emergency Department Summary 02/15/25 MR#: [id number] Acct: [id number] Name: GEOFFREY NASSAR Rep #:[id number] : 1935 89 From: Av Valecnia MD PCP: Dr. Ken Contreras MD Status:R EG ER Location: ED HPI History of Present Illness Chief Complaint: Fall Detail of Chief Complaint: Headache, neck pain and low back pain status post fall Informant: patient Onset/Context/Timing Onset: Days (Yesterday) Mechanism/Context: Blunt Injury and Fall (States she tripped over her feet. Shefell into the refrigerator.) Location of pain/injuries: - (Left parietal area, neck and low back. Patient unaware she had ecchymosis dorsal ulnar side of her left hand) Quality of Pain: Dull and Aching Current Severity: Mild Maximum Severity: Moderate Worsened by: Neck pain worse with palpation and low back pain worse with movement Relieved by: Nothing Associated Symptoms Associated Symptoms: Negative for Parasthesias, Weakness, Loss of function, Inability to ambulate, Loss of consciousness or Amnesia Narrative Narrative: Patient 89-year-old woman. Is on aspirin. Has history of asthma, hypothyroidism, non-ST elevation IA, GERD, and essential hypertension. She alsohas history of pacemaker placement 2020. Patient states she tripped over her feet. She fell into the refrigerator. She hit the left side of her head. She presents today because of persistent headache since injury. Neck pain and low back pain. She has not taken anything for it. She was asked if she would like anything for her pain and she declined. Patient denies double vision blurred vision loss of vision. Denies weight or ears or decreased hearing. She denies paresthesia, anesthesia or motor weakness. She denies cardiac respiratory symptoms. Denies black or maroon-colored stool. She has no urologic symptoms. Patient does have history of osteoporosis. Prior similar symptoms: No Recent Illness/Hospitalization: No [facility] Medical History Presence of cardiac pacemaker (~05/29/21) Chronotropic incompetence with sinus node dysfunction Sick sinus syndrome Sinus bradycardia Retinal detachment Essential hypertension GERD (gastroesophageal reflux disease) Acute respiratory failure with hypoxia PND (post-nasal drip) History of non-ST elevation myocardial infarction (NSTEMI) Pulmonary nodule Cough Dizziness Bronchiectasis Thrush, oral Dyspnea Chest pain Asthma exacerbation Bilateral SubmassivePE Hypothyroidism Asthmatic bronchitis , chronic Home Medications ?Medication ?Instructions ?Recorded ?Last Taken ?Type acetaminophen 325 mg tablet 650 mg PO QHS pain 7 03/12/17 History baclofen 10 mg tablet 5 mg PO BID muscle relaxer 0 11/17/16 11/16/16 History cyanocobalamin (vitamin B-12) 1,000 mcg PO DAILY vitam in 11/17/16 11/16/16 History 1,000 mcg tablet multivitamin 1 tab PO DAILY vitamin 11/1711/16/16 History paroxetine HCl 10 mg tablet 40 mg PO DAILY mental heal th 11/17/16 05/29/21 History polyethylene glycol 3350 17 gram 17 gm PO DAILY consti pation 05/27/17 Unknown History oral powder packet aspirin 81 mg tablet,delayed 81 mg PO DAILY@0800 heart health 11/27/17 Unknown History release lamotrigine 25 mg tablet,extended 25 mg PO DAILY 11/27 Unknown History release 24 hr loratadine 10 mg tablet (Claritin) 10 mg PO DAILY therese rgies 12/27/20 Unknown History albuterol sulfate 2.5 mg/3 mL 2.5 mg inhalation Q4H SC N Sob &/Or 01/10/21 05/29/21 History (0.083 %) solution for nebulization Wheezing brimonidine 0.2 %-timolol 0.5 % 1 drp ophthalmic (eye) BID eye 01/10/21 Unknown History eye drops (Combigan) health ketotifen fumarate 0.025 % (0.035 1 drp ophthalmic (ey e) BID eye 01/10/21 Unknown History %) eye drops health latanoprost 0.005 % eye drops, 1 drp ophthalmic (eye) QPM eye 01/10/21 Unknown History emulsion health lisinopril 40 mg tablet 40 mg PO DAILY blood pressur e 01/10/21 Unknown History lorazepam 1 mg tablet 2 mg PO QHS anxiety 01/10/21 Unknown History pantoprazole 20 mg tablet,delayed 40 mg PO DAILY reflu x 01/10/21 05/29/21 History release vibegron 75 mg tablet (Gemtesa) 75 mg PO DAILY 1 Unknown History albuterol sulfate 90 mcg/actuation 1 - 2 puff inhalati on Q4H PRN PRN 02/11/22 Unknown Rx aerosol inhaler Shortness Of Breath #18 gram s ascorbic acid (vitamin C) 250 mg 250 mg PO BID 2 Unknown History tablet lactobacillus combination no.9 4 4,000 mmu cells PO DA BUTCH 08/19/22 Unknown History billion cell capsule (Adult 50 Plus Probiotic) ergocalciferol (vitamin D2) 1,250 50,000 unit PO QMONT H vitamin 09/10/22 Unknown History mcg (50,000 unit) capsule conjugated estrogens 0.625 mg/gram 0.625 mg vaginal .3 xweek 02/11/24 Unknown History vaginal cream levothyroxine 88 mcg tablet 88 mcg PO .COMPLEX thyroid 07/01/24 Unknown History furosemide 40 mg tablet 40 mg PO QAM #90 tabs Unknown Rx hydrocodone-acetaminophen 5-325mg 1 tab PO Q6H PRN PRN Pain 3 days 08/08/24 Unknown Rx 5mg-325mg #10 TABLETS fluticasone furoate 100 1 inh inhalation DAILY #60 e a 08/22/24 Unknown Rx mcg-vilanterol 25 mcg/dose inhalation powder (Breo Ellipta) meloxicam 15 mg tablet 15 mg PO DAILY 09/21/24 Unkn own History Allergy/AdvReac Type Severity Reaction Status Date / Time ciprofloxacin (From Cipro) Allergy Itching Verified 02/15/25 14:16 diphenhydramine (From Allergy Rash Verified 02/15/25 14:16 Benadryl) Penicillins Allergy Hives Verified 02/15/25 14:16 shellfish derived Allergy Anaphylaxis Verified 02/15/25 14:16 Sulfa (Sulfonamide Allergy Upset Verified 02/15/25 14:16 Antibiotics) Stomach tiotropium (From Spiriva Allergy Other Verified 02/15/25 14:16 with HandiHaler) ketamine AdvReac hallucinati Verified 02/15/25 14:16 ons Family History Mother Breast cancer Colon cancer Father Cancer Lung Grandmother Breast cancer CVA (cerebral vascular accident) Surgical History History of tonsillectomy History of cholecystectomy History of bronchoscopy History of cataract extraction History of hysterectomy History of bladder suspension procedure Social History Smoking Status: Former smoker Tobacco: How many years used: 10 second hand exposure: No alcohol intake: current details: occasional substance use type: does not use caffeine: Yes Type: coffee what type of physical activity do you participate in: other seatbelt use: always do you feel safe at home: Yes ROS ROS ED Constitutional Constitutional ED: Denies chills, fever(s) or subjective Eyes Eyes: Denies blurry vision or change in vision ENT ENT ED: Denies ear pain, rhinorrhea or sore throat Cardiovascular Cardiovascular: Denies chest pain, palpitations or racing heartbeat Respiratory/Chest Respiratory/Chest: Denies cough, dyspnea or dyspnea on exertion Gastrointestinal Gastrointestinal: Reports nausea; Denies abdominal pain, constipation, diarrhea,melena or vomiting Genitourinary Genitourinary ED: Denies dysuria, hematuria or urinary frequency Musculoskeletal Musculoskeletal: Reports back pain and neck pain; Denies arthralgias or myalgias Integumentary Denies rash Neurologic Neurologic: Reports headache(s); Denies paresthesias or weakness Endocrine Endocrinology: Denies cold intolerance or heat intolerance Hematologic/Lymphatic Hematologic/Lymphatic: Denies easy bleeding or easy bruising EXAM Physical Exam Const Vital Signs: 02/15/25 14:14 02/15/25 15:49 02/15/25 16:13 Temperature 98.2 F Temperature Source Oral Pulse Rate 68 59 L Respiratory Rate 15 18 Respiratory Effort Normal Non-Labored Respiratory Depth Normal Respiratory Pattern Normal Blood Pressure 127/73 H 127/70 H Blood Pressure Mean 91 89 Pulse Ox 97 94 97 Oxygen Delivery Method Room Air Room Air Room Air Positive well nourished and well developed General Appearance ED: well developed HEENT Reports TM's clear HEENT Narrative: Patient has contusion left parietal area. No palpable depression. There is no clinical findings of basilar skull fracture. trauma and tenderness; Negative for atraumatic Nose: Negative for septum abnormal Tympanic Membrane ED: Yes TM's clear Eyes PERRL and EOMs intact bilaterally General Eye ED: Yes other Other Details: There is no nystagmus. There is no subconjunctival hemorrhage. Neck full ROM Neck Narrative: Spinous processes C5 and C6 General: tenderness Chest Wall inspection of chest normal and palpation of chest normal Resp normal respiratory effort and clear to auscultation bilaterally Cardio regular rhythm, S1 normal heart sound, S2 normal heart sound and no murmurs GI normal to inspection, nondistended, normoactive bowel sounds, non-tender, non-distended and no masses Palpation: soft Back/Spine normal to inspection; Negative for no thoracic nor lumbar tenderness Back/Spine Narrative: Pain ovation L2, L3 and L4. Lumbar Spine / Lower Back: straight leg raise negative bilaterally Extremity normal to inspection and full ROM MDM MDM Radiography Chest X-Ray - ED: Read by ED Physician (Three-view x-ray of the LS-spine revealsno evidence of fracture. There is minimal degenerative changes. There is calcification of the aorta. There is no dilatation of the aorta.) Diagnostic Testing: Clinical Impression(s) from Imaging Studies Brain CT 02/15/25 15:26 IMPRESSION: NO ACUTE FINDINGS Reading Location: [id number] Cervical Spine CT 02/15/25 15:26 IMPRESSION: No acute cervical spine fracture. Spondylosis. Spondylolisthesis. Reading Location: [id number] Lumbar Spine X-Ray 02/15/25 16:40 IMPRESSION: No acute osseous abnormality. Spondylosis. Spondylolisthesis. Scoliosis. Reading Location: [id number] CT of the head without contrast and CT of the cervical spine without contrast reveals no acute process. There is no intra epidural hematoma, subdural hematoma, traumatic subarachnoid hemorrhage or parenchymal contusion. There is no evidence of fracture. There is no fluid in the sinuses. CT reveals degenerative changes. No prevertebral swelling noted. Is no was a fracture, subluxation or dislocation. The LS-spine, CT of the head and neck were independently reviewed by me at 1648 Treatment and Re-Evaluation Narrative: Patient was discharged home with appropriate home-going instructions. Interpretation of images by radiologist was reviewed. There is no discrepancy. Discharge Plan Triage Chief Complaint: Fall ED Provider: Av Valencia Dx/Rx/DC Orders Clinical Impression: CHI (closed head injury), GERD (gastroesophageal reflux disease), Essential hypertension, Acute post-traumatic headache, Acute cervical myofascial strain, Acute lumbar myofascial strain, Injury due to fall Instructions: ED Back Sprain/Strain, ED Head Injury (Adult), ED Neck Sprain or Strain Prescriptions: No Action albuterol sulfate 2.5 mg /3 mL (0.083 %) solution for nebulization 2.5 mg INHALATION Q4H PRN (Reason: Sob &/Or Wheezing) Combigan 0.2-0.5 % drops 1 drp ophthalmic (eye) BID ketotifen fumarate 0.025 % (0.035 %) drops 1 drp ophthalmic (eye) BID Rx Instructions: administer at least 8 hours apart latanoprost 0.005 % drops, emulsion 1 drp ophthalmic (eye) QPM lisinopril 40 mg tablet 40 mg PO DAILY pantoprazole 20 mg tablet,delayed release (DR/EC) 40 mg PO DAILY loratadine [Claritin] 10 mg tablet 10 mg PO DAILY Gemtesa 75 mg tablet 75 mg PO DAILY albuterol sulfate 90 mcg/actuation HFA aerosol inhaler 1 - 2 puff INHALATION Q4H PRN PRN (Reason: Shortness Of Breath) Qty: 18 6RF ascorbic acid (vitamin C) 250 mg tablet 250 mg PO BID Adult 50 Plus Probiotic 4 billion cell capsule 4,000 mmu cells PO DAILY Rx Instructions: administer with a meal conjugated estrogens 0.625 mg/gram cream 0.625 mg vaginal .3xweek Rx Instructions: Three times a week multivitamin 1 EACH tablet 1 tab PO DAILY Patient Comments: supplement acetaminophen 325 MG tablet 650 mg PO QHS Patient Comments: pain paroxetine HCl 10 MG tablet 40 mg PO DAILY Patient Comments: anxiety/depression cyanocobalamin (vitamin B-12) 1,000 MCG tablet 1,000 mcg PO DAILY Patient Comments: supplement baclofen 10 MG tablet 5 mg PO BID Patient Comments: muscle spasms lorazepam 1 mg tablet 2 mg PO QHS Patient Comments: anxiety/sleep ergocalciferol (vitamin D2) 1,250 mcg (50,000 unit) capsule 50,000 unit PO QMONTH Patient Comments: levothyroxine 88 mcg tablet 88 mcg PO .COMPLEX Patient Comments: hypothyroidism Rx Instructions: 88 mcg PO MOTUWETHFR; polyethylene glycol 3350 17 GM packet 17 gm PO DAILY aspirin 81 MG tablet 81 mg PO DAILY@0800 lamotrigine 25 MG tablet extended release 24hr 25 mg PO DAILY meloxicam 15 mg tablet 15 mg PO DAILY hydrocodone-acetaminophen 5-325 mg tablet 1 tab PO Q6H PRN PRN (Reason: Pain) 3 Days Qty: 10 0RF furosemide 40 mg tablet 40 mg PO QAM Qty: 90 3RF fluticasone furoate-vilanterol [Breo Ellipta] 100-25 mcg/dose blister with device 1 inh inhalation DAILY Qty: 60 6RF Primary Care Provider: Ken Contreras Referrals: Ken Contreras MD [Primary Care Provider] - 1 Week if not improving Activity Restrictions/Additional Instructions: 1. Expect to feel worse over the next 24 to 48 hours. 2. Do not be surprised if you have heard in more places than you presently do over the next day or 2 3. You will hurt for 3 to 7 days 4. Apply ice to areas of discomfort. Application heat will make your pain worse. Print Language: Hebrew Disposition Disposition: Home, Self Care What to do if you have Problems For any increased pain, shortness of breath, bleeding, nausea or vomiting, chestpain, or any unexpected problems, contact your Primary Care Provider. Call [facility] ([phone]) or report to the closest Emergency Room. Call 911 if necessary. 02/15/25 8325 <Electronically signed by Av Valencia MD> Cosigner Signature (if applicable): CC: Dr. Ken Contreras MD ~ Signed [facility] Work Phone: 1(571) 106-367406-11-2025 Telephone encounter Note* Telephone Encounter - Kassidy Peña RN - 02/15/2025 11:49 AM EDT Esther with [facility] calls with patient to report patient fell into refrigerator yesterday and has had a severe headache with eye pain and visual disturbance since. Patient has tried tylenol and hydrocodone with no relief. Per nurse triage, go to ED now or PCP triage. Patient agreeable to ER. Care advice reviewed with verbalized understanding. Reason for Disposition [1] SEVERE headache AND [2] not improved 2 hours after pain medicine/ice packs Answer Assessment - Initial Assessment Questions 1. MECHANISM: Esther with [facility] is currently visiting patient and calls to report that patient fell into refrigerator yesterday and hit left side of back and head on the refrigerator. Per patient she did not fall to the ground but has had a severe headache since hitting head. Esther reports that patient doesn't have any bruising or raised areas to the head but is also complaining of left side pain and has bruising 7-8 in in length and 2-3 in in width. 2. ONSET: Yesterday 3. NEUROLOGIC SYMPTOMS: No loss of consciousness. Severe headache and eye discomfort/visual disturbance. 4. MENTAL STATUS: Alert and oriented x 4 per Esther. 5. LOCATION: Patient is not certain. 6. SCALP APPEARANCE: No injuries noted to the scalp. 7. SIZE: NA 8. PAIN - SEVERE (8-10): Excruciating pain and patient unable to do normal activities. Tylenol and Hydrocodone didn't help the pain. 9. TETANUS: NA 10. BLOOD THINNERS: Baby Aspirin daily. 11. OTHER SYMPTOMS: No neck pain, vomiting) Protocols used: Head [id number] [facility]06-11-2025 Miscellaneous Notes* Telephone Encounter - Kassidy Peña RN - 02/15/2025 11:49 AM EDT Esther with [facility] calls with patient to report patient fell into refrigerator yesterday and has had a severe headache with eye pain and visual disturbance since. Patient has tried tylenol and hydrocodone with no relief. Per nurse triage, go to ED now or PCP triage. Patient agreeable to ER. Care advice reviewed with verbalized understanding. Reason for Disposition [1] SEVERE headache AND [2] not improved 2 hours after pain medicine/ice packs Answer Assessment - Initial Assessment Questions 1. MECHANISM: Esther with [facility] is currently visiting patient and calls to report that patient fell into refrigerator yesterday and hit left side of back and head on the refrigerator. Per patient she did not fall to the ground but has had a severe headache since hitting head. Esther reports that patient doesn't have any bruising or raised areas to the head but is also complaining of left side pain and has bruising 7-8 in in length and 2-3 in in width. 2. ONSET: Yesterday 3. NEUROLOGIC SYMPTOMS: No loss of consciousness. Severe headache and eye discomfort/visual disturbance. 4. MENTAL STATUS: Alert and oriented x 4 per Esther. 5. LOCATION: Patient is not certain. 6. SCALP APPEARANCE: No injuries noted to the scalp. 7. SIZE: NA 8. PAIN - SEVERE (8-10): Excruciating pain and patient unable to do normal activities. Tylenol and Hydrocodone didn't help the pain. 9. TETANUS: NA 10. BLOOD THINNERS: Baby Aspirin daily. 11. OTHER SYMPTOMS: No neck pain, vomiting) Protocols used: Head [id number] documented in this encounterK[facility] Hospital Discharge instructions Additional Instructions 1. Expect to feel worse over the next 24 to 48 hours. 2. Do not be surprised if you have heard in more places than you presently do over the next day or 2 3. You will hurt for 3 to 7 days 4. Apply ice to areas of discomfort. Application heat will make your pain worse. [facility] Work Phone: 1(833) 823-624606-02-2025 Telephone encounter Note* Telephone Encounter - Adelaida Almendarez LPN - 02/06/2025 10:17 AM EDT [facility] Scheduling dept calling asking for another copy of the Nuclear stress test order to be faxed [phone]. She said need part where electronically signed it had been cut off. Printed order andfaxed as requested again. [facility]06-02-2025 Miscellaneous Notes* Telephone Encounter - Adelaida Almendarez LPN - 02/06/2025 10:17 AM EDT [facility] Scheduling dept calling asking for another copy of the Nuclear stress test order to be faxed [phone]. She said need part where electronically signed it had been cut off. Printed order andfaxed as requested again. documented in this encounterK[facility]05-30-2025 Telephone encounter Note * Telephone Encounter - Yessenia Perez LPN - 02/03/2025 11:25 AM EDT Patient is approved, no auth required. For stress test at [facility]. Faxed to [facility] to arranged. [facility]05-30-2025 Miscellaneous Notes* Telephone Encounter - Yessenia Perez LPN - 02/03/2025 11:25 AM EDT Patient is approved, no auth required. For stress test at [facility]. Faxed to [facility] to arranged. * Telephone Encounter - Yessenia Perez LPN - 02/03/2025 9:38 AM EDT 1.Faxed order to [facility] Milk for dry needing. 2.Referral/precert for the stress test entered. Pending review. documented in this encounterKet[facility]05-30-2025 Telephone encounter Note * Telephone Encounter - Luz Harden RN - 02/03/2025 11:01 AM EDT Esther nurse with [facility] calling in stating they work with pt. (see 08/12/24 note). She is requesting pt's OV note with Dr. Contreras from yesterday and the one from Dr. Mars from 01/25. Esther made aware of problems with outgoing calls and faxes and will make sure fax goes through but may not be til next week. Fax # is [phone]. [facility]05-30-2025 Miscellaneous Notes* Telephone Encounter - Luz Harden RN - 02/03/2025 11:01 AM EDT Esther nurse with [facility] calling in stating they work with pt. (see 08/12/24 note). She is requesting pt's OV note with Dr. Contreras from yesterday and the one from Dr. Mars from 01/25. Esther made aware of problems with outgoing calls and faxes and will make sure fax goes through but may not be til next week. Fax # is [phone]. documented in this encounterKet[facility]05-30-2025 Telephone encounter Note * Telephone Encounter - Yessenia Perez LPN - 02/03/2025 9:38 AM EDT 1.Faxed order to [facility] for dry needing. 2.Referral/precert for the stress test entered. Pending review. [facility]05-29-2025 Instructions* Patient Instructions* Ken Contreras MD - 02/02/2025 4:30 PM EDT - Increase Wellbutrin (bupropion) to a total of 300 mg daily; your new prescription has been sent to the pharmacy--please pick it up today. - Continue using Biotene mouthwash at night and sip water or chew sour candy as needed to relieve dry mouth. - Maintain your current Lamictal (lamotrigine) dose for now; we will plan to taper it later once wesee how you respond to Wellbutrin. - For left hip pain until you cannot have another injection this soon. Take half of your Hydrocodone dose along with Tylenol as you ve been doing. - I am referring your to physical therapy for a specific treatment of your left hip. A dry-needlingappointment has been arranged through our clinic; the therapist will call you to set the date and will include dry needling specifically. - A cardiac stress test using the injection protocol has been ordered with your heart group; they will contact you to schedule the test. documented in this encounterK[facility]05-29-2025 NoteWay[facility]-29-2025 History of Present illness Narrative* Ken Contreras MD - 02/02/2025 3:59 PM EDT This note was created using MRI Interventionsriter. Subjective Patient presents with: Depression Hip Pain Shortness of Breath Geoffrey Nassar is a 89 year old female. Recording using [employer] software for draft documentationof the visit was discussed with the patient/authorized fuels sales representative; all questions welcomed and answered. Patient/authorized fuels sales representative agreed to proceed Depression: - Started Wellbutrin 4 weeks ago; experiencing dry mouth, left-sided throat discomfort, and dysphagia. - Symptoms improved, but dry mouth persists; using Biotene mouthwash for relief. - No improvement in energy levels or mood; ongoing fatigue. Left Hip Pain: - Received Kenalog and lidocaine injection from Dr. Mars; relief lasted about a month. - Informed by BOARDING KENNEL OR CATTERY OPERATOR that another injection cannot be administered for 3 months. - Taking half doses of hydrocodone and Tylenol for pain management. - Interested in trying dry needling. Dyspnea: - Worsening dyspnea; last stress test in 2020 was an injection-based test. I recommended seeing hercardiologist sooner. She was notified I can order the stress test and they will read. Review of Systems Constitutional: Positive for fatigue. HENT: Negative for sore throat and trouble swallowing. Respiratory: Positive for chest tightness and shortness of breath. Cardiovascular: Negative for chest pain, palpitations and leg swelling. Psychiatric/Behavioral: Positive for dysphoric mood. ACTIVE PROBLEM LIST Depression, Recurrent Hypothyroidism Extrinsic Asthma (Hcc) Essential Hypertension Bronchiectasis Without Complication (Hcc) Osteoarthritis Ddd (Degenerative Disc Disease), Lumbar Irritable Bowel Syndrome With Both Constipation and Diarrhea Vitamin D Deficiency Anxiety Gastroesophageal Reflux Disease With Esophagitis Tubular Adenoma of Colon Obesity, Class I, Bmi 30-34.9 Nonexudative Age-Related Macular Degeneration, Bilateral, Intermediate Dry Stage Hx of Laser Iridotomy Mixed Stress and Urge Urinary Incontinence 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, Mild Stage Recurrent Uti Asthmatic Bronchitis , Chronic (Hcc) Stage 3 Chronic Kidney Disease, Unspecified Whether Stage 3a Or 3b Ckd (Hcc) Physical Debility Oxygen Desaturation Social History Tobacco Use Smoking status: Former Current packs/day: 0.00 Average packs/day: 0.5 packs/day for 10.0 years (5.0 ttl pk-yrs) Types: Cigarettes Start date: 05/14/1955 Quit date: 05/14/1965 Years since quittin.7 Passive exposure: Past Smokeless tobacco: Never Vaping Use Vaping status: Never Used Substance Use Topics Alcohol use: Yes Comment: 1/2 glass of wine twice per month Drug use: No Current Outpatient Medications Medication Sig buPROPion XL (WELLBUTRIN XL) 150 mg 24 hr tablet Take 1 tablet by mouth once daily. LORazepam (ATIVAN) 2 mg tab Take 1 tablet by mouth daily at bedtime for 90 days. meloxicam (MOBIC) 15 mg tablet Take 1 tablet by mouth once daily. pantoprazole DR (PROTONIX) 20 mg tablet Take 2 tablets by mouth once daily. PARoxetine (PAXIL) 40 mg tablet Take 1 tablet by mouth once daily. lisinopril (ZESTRIL) 40 mg tablet Take 1 tablet by mouth once daily. lamoTRIgine (LAMICTAL) 25 mg tablet Take 1 tablet by mouth once daily. levothyroxine (SYNTHROID) 88 mcg tablet Take 1 tablet by mouth five times a week. Mondays thru Fridays. None on Saturdays and Sundays. baclofen 5 mg tablet Take 1 tablet by mouth two times a day. furosemide (LASIX) 40 mg tablet Take 40 mg by mouth once daily. BREO ELLIPTA 100-25 mcg/dose inhaler Inhale 1 Inhalation as instructed once daily. ergocalciferol 50,000 unit capsule (VITAMIN D2, DRISDOL) Take 1 capsule by mouth every 4 weeks. aspirin, enteric coated (ASPIRIN, ENTERIC COATED) 81 mg EC tablet Take 1 tablet by mouth once daily. acetaminophen (TYLENOL) 500 mg tablet Take 2 tablets by mouth every 8 hours as needed for pain. vibegron (GEMTESA) 75 mg tablet Take 1 tablet by mouth once daily. Prescribed by Dr. Hansen brimonidine-timolol (COMBIGAN) 0.2-0.5 % ophthalmic solution Use 1 Drop in the left eye twice daily. latanoprost (XALATAN) 0.005 % ophthalmic solution Use 1 Drop in both eyes daily at bedtime. vit C/E/zinc ox/trevor/lut/zeax (ICAPS AREDS2 ORAL) loratadine (CLARITIN REDITABS) 10 mg dissolvable tablet Take 1 tablet by mouth once daily as needed(allergies). DULCOLAX, BISACODYL, ORAL Take 1 tablet by mouth as needed. polyethylene glycol 3350 (MIRALAX, GLYCOLAX) 17 gram/dose powder Drink a mix of 1 scoop in 8oz of water/beverage once daily as needed for constipation. cyanocobalamin (VITAMIN B-12) 1,000 mcg tab Take 1,000 mcg by mouth once daily. albuterol HFA (VENTOLIN HFA) 90 mcg/actuation inhaler Inhale 2 Puffs as instructed every 4 hours asneeded for Wheezing/Shortness of Breath. MULTIVITAMIN TAB Take one(1) tablet daily. No current facility-administered medications for this visit. Objective BP 104/74 Pulse 60 Resp 18 Wt 73.1 kg (161 lb 2.5 oz) BMI 29.48 kg/m Physical Exam Constitutional: General: She is not in acute distress. Cardiovascular: Heart sounds: Normal heart sounds. Pulmonary: Effort: Pulmonary effort is normal. Breath sounds: Normal breath sounds. Musculoskeletal: Left hip: Tenderness present. No deformity, bony tenderness or crepitus. Decreased range of motion. Neurological: General: No focal deficit present. Mental Status: She is alert. Comments: Ambulating with a cane. Assessment and Plan 1. Depression, recurrent - ICD9: 296.30, ICD10: F33.9 (primary diagnosis) Shared medical decision making was done. We agreed to try for another 4 weeks. - BUPROPION XL 300 MG 24 HR TAB. Dose increased. 2. Hip pain, left - ICD9: 719.45, ICD10: M25.552 Bursitis. Consult for dry needling. - CONSULT TO PHYSICAL THERAPY 3. Dyspnea on exertion - ICD9: 786.09, ICD10: R06.09 Progressing. Pharmacologic stress test order for [facility]. [facility]. - CONSULT TO NON-[facility] FACILITY Ken Contreras MD documented in this encounterDawn Ville [address]-21-2025 NoteWay[facility]05-21-2025 NoteWay[facility]05-07-2025 NoteWay[facility]05-07-2025 History of Present illness Narrative* Ailyn Bonner, KALEE.MICROBIOLOGICAL LABORATORY TECHNICIAN - 01/11/2025 3:41 PM EDT IMPRESSION: Geoffrey Nassar is a 89 year old female. PMHx of anxiety, depression, diverticulosis, HTN, PE, pacemaker, asthma, umbilical hernia, GERD, hypothyroidism, degenerative disc disease (lumbar) tubular adenoma of the colon, recurrent falls who sustained a fall on 10/02/2023. She was evaluated at the TBI clinic on 11/09/23 following a fall in which she was found to have a subarachnoid hemorrhage. She was monitored in the ICU and repeat imaging done, non surgical intervention. Initial appointment with PM&R on 01/06/24. She arrives today for 6 month follow up. No diagnosis found. ACTIVE PROBLEM LIST Depression, Recurrent Hypothyroidism Extrinsic Asthma (Hcc) Essential Hypertension Bronchiectasis Without Complication (Hcc) Osteoarthritis Ddd (Degenerative Disc Disease), Lumbar Irritable Bowel Syndrome With Both Constipation and Diarrhea Vitamin D Deficiency Anxiety Gastroesophageal Reflux Disease With Esophagitis Tubular Adenoma of Colon Obesity, Class I, Bmi 30-34.9 Nonexudative Age-Related Macular Degeneration, Bilateral, Intermediate Dry Stage Hx of Laser Iridotomy Mixed Stress and Urge Urinary Incontinence 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, Mild Stage Recurrent Uti Asthmatic Bronchitis , Chronic (Hcc) Stage 3 Chronic Kidney Disease, Unspecified Whether Stage 3a Or 3b Ckd (Hcc) Physical Debility Oxygen Desaturation PLAN: ASSESSMENT/PLAN: 1. Personal history of traumatic brain injury - ICD9: V15.52, ICD10: Z87.820 (primary diagnosis) - doing well. Denies any new falls or concerns. - Discussed follow up as needed. 2. Sleep apnea, unspecified type - ICD9: 780.57, ICD10: G47.30 - continue to follow with pulmonology and sleep medicine No orders found for this visit on 01/11/25. Subjective: Patient presents with: Follow Up Feels things are going well. Was released from PT due to oxygen level. Followed with pulmonology and sleep medicine and was put on nocturnal oxygen. Plan on following with new PT this week. Did have a fall in August and was having hip and low back pain. Had a injection in left hip and notes the pain in hip and low back has improved. Has noted some worsening with her vision, has an appt to see eye doctor. Recent labs/Imaging related to complaint: No new labs/images. Medications Reviewed buPROPion XL (WELLBUTRIN XL) 150 mg 24 hr tablet Take 1 tablet by mouth once daily. LORazepam (ATIVAN) 2 mg tab Take 1 tablet by mouth daily at bedtime for 90 days. meloxicam (MOBIC) 15 mg tablet Take 1 tablet by mouth once daily. pantoprazole DR (PROTONIX) 20 mg tablet Take 2 tablets by mouth once daily. PARoxetine (PAXIL) 40 mg tablet Take 1 tablet by mouth once daily. lisinopril (ZESTRIL) 40 mg tablet Take 1 tablet by mouth once daily. lamoTRIgine (LAMICTAL) 25 mg tablet Take 1 tablet by mouth once daily. levothyroxine (SYNTHROID) 88 mcg tablet Take 1 tablet by mouth five times a week. Mondays thru Fridays. None on Saturdays and Sundays. baclofen 5 mg tablet Take 1 tablet by mouth two times a day. furosemide (LASIX) 40 mg tablet Take 40 mg by mouth once daily. BREO ELLIPTA 100-25 mcg/dose inhaler Inhale 1 Inhalation as instructed once daily. ergocalciferol 50,000 unit capsule (VITAMIN D2, DRISDOL) Take 1 capsule by mouth every 4 weeks. aspirin, enteric coated (ASPIRIN, ENTERIC COATED) 81 mg EC tablet Take 1 tablet by mouth once daily. acetaminophen (TYLENOL) 500 mg tablet Take 2 tablets by mouth every 8 hours as needed for pain. vibegron (GEMTESA) 75 mg tablet Take 1 tablet by mouth once daily. Prescribed by Dr. Hansen brimonidine-timolol (COMBIGAN) 0.2-0.5 % ophthalmic solution Use 1 Drop in the left eye twice daily. latanoprost (XALATAN) 0.005 % ophthalmic solution Use 1 Drop in both eyes daily at bedtime. vit C/E/zinc ox/trevor/lut/zeax (ICAPS AREDS2 ORAL) loratadine (CLARITIN REDITABS) 10 mg dissolvable tablet Take 1 tablet by mouth once daily as needed(allergies). DULCOLAX, BISACODYL, ORAL Take 1 tablet by mouth as needed. polyethylene glycol 3350 (MIRALAX, GLYCOLAX) 17 gram/dose powder Drink a mix of 1 scoop in 8oz of water/beverage once daily as needed for constipation. cyanocobalamin (VITAMIN B-12) 1,000 mcg tab Take 1,000 mcg by mouth once daily. albuterol HFA (VENTOLIN HFA) 90 mcg/actuation inhaler Inhale 2 Puffs as instructed every 4 hours asneeded for Wheezing/Shortness of Breath. MULTIVITAMIN TAB Take one(1) tablet daily. [place] reviewed to confirm/clarify any controlled medications Allergies Reviewed PAST MEDICAL HISTORY: ACTIVE PROBLEM LIST Depression, Recurrent Hypothyroidism Extrinsic Asthma (Hcc) Essential Hypertension Bronchiectasis Without Complication (Hcc) Osteoarthritis Ddd (Degenerative Disc Disease), Lumbar Irritable Bowel Syndrome With Both Constipation and Diarrhea Vitamin D Deficiency Anxiety Gastroesophageal Reflux Disease With Esophagitis Tubular Adenoma of Colon Obesity, Class I, Bmi 30-34.9 Nonexudative Age-Related Macular Degeneration, Bilateral, Intermediate Dry Stage Hx of Laser Iridotomy Mixed Stress and Urge Urinary Incontinence 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, Mild Stage Recurrent Uti Asthmatic Bronchitis , Chronic (Hcc) Stage 3 Chronic Kidney Disease, Unspecified Whether Stage 3a Or 3b Ckd (Hcc) Physical Debility Oxygen Desaturation PAST SURGICAL HISTORY Procedure Laterality Date CHOLECYSTECTOMY 1998 COLONOSCOPY FLX DX W/COLLJ SPEC WHEN PFRMD 12/18/2005 COLONOSCOPY FLX DX W/COLLJ SPEC WHEN PFRMD 09/17/2011 COLONOSCOPY FLX DX W/COLLJ SPEC WHEN PFRMD 11/30/2017 Colonoscopy - adenomatous polyp-5 year follow-up EGD 05/29/2017 LASER IRIDOPLASTY OS (LEFT EYE) Left LASER IRIDOTOMY OD (RIGHT EYE) Right PACEMAKER INSERTSION 05/29/2021 dual lead PAST SURGICAL HISTORY OF 09/2007 jacinto eyelid removal dropping skin PAST SURGICAL HISTORY OF Bilateral 11/24/2011 cataract removal 11/19/11, 11/24/11 SLING OPER STRES INCONTINENCE 2004 TONSILLECTOMY HX 1956 VAG HYST 250 GM/< W/RMVL TUBE&/OVARY 1996 uterine prolapse, hyst. bilateral oophorectomy VITRECTOMY MECHANICAL PARS PLANA Left Social History Tobacco Use Smoking status: Former Current packs/day: 0.00 Average packs/day: 0.5 packs/day for 10.0 years (5.0 ttl pk-yrs) Types: Cigarettes Start date: 05/14/1955 Quit date: 05/14/1965 Years since quittin.7 Passive exposure: Past Smokeless tobacco: Never Vaping Use Vaping status: Never Used Substance Use Topics Alcohol use: Yes Comment: 1/2 glass of wine twice per month Drug use: No family history includes Arthritis in her mother; Cancer in her father and mother; Kidney Disease inher mother. Review of systems as noted, reviewed, and documented on intake section. Physical Exam: 01/11/25 1528 BP: 90/56 BP Site: Left Arm BP Position: Sitting BP Cuff Size: Large Adult Pulse: 60 Resp: 16 SpO2: 95% General: no acute distress. Awake, alert. Cardiopulmonary: unlabored breathing. Appears well perfused Abdomen: non-distended, Lower Extremities: no edema, no calf tenderness. Skin: Visualized areas are warm, dry, no jaundice UE SAB EF EE WE WF Cassandra Consultant R 5/5 5/5 5/5 5/5 5/5 5/5 L 5/5 5/5 5/5 5/5 5/5 5/5 LE HF KF KE PF DF R 5/5 5/5 5/5 5/5 5/5 L 5/5 5/5 5/5 5/5 5/5 During our face to face clinical encounter we discussed my concerns neurologically in terms of diagnosis, impact on health and activities of living, and addressed questions. I tried to reassure the patient and also address questions. I explained to the patient to call if any questions, to review res ults, and follow-up as instructed or as needed. Patient verbalizes understanding and I have addressed concerns and questions at this visit Patient has my contacts, educational material provided, and my chart sign up. After visit summary discussed. I spent a total of 20 minutes on the date of the service which included preparing to see the patient, [id number] patient care, completing clinical documentation, performing a medically appropriate examination, counseling and educating the patient/family/caregiver, ordering medications, tests, or p rocedures and communicating results to the patient/family/caregiver. LAW Kebede.MICROBIOLOGICAL LABORATORY TECHNICIAN [facility] History of Present illness Narrative* Najma John RN - 01/06/2025 12:55 PM EDT Images from the original note were not included. [facility] Telephonic Outreach Provider Action/FYI Patient identified by Name and Date of . Discussed care with patient. Program Details Chronic Disease Management Status: Enrolled Effective Dates: 11/09/2024 - present Responsible Staff: Najma John RN Support and Services: Hypertension, Chronic Kidney Disease (CKD) Program Goals Targets Target Due Completed Completed By Outcome CKD lab care gaps addressed 02/09/2025 01/06/2025 Najma John RN Complete/Scheduled Comprehensive CKD education provided 02/09/2025 01/06/2025 Najma John RN Complete HTN lab care gaps addressed 02/09/2025 01/06/2025 Najma John RN Complete/Scheduled Annual Medicare Wellness visit addressed 02/09/2025 12/22/2024 Najma John RN Complete/Scheduled Annual Nephrology visit addressed 02/09/2025 12/22/2024 Najma John RN Patient Declined Biannual PCP visit addressed 02/09/2025 12/22/2024 Najma John RN Patient Declined General education provided (managing stress, where to go/how to contact, etc.) 12/12/2024 12/07/2024 Najma John RN Complete Comprehensive HTN education provided 02/09/2025 12/07/2024 Najma John RN Complete Intake assessments completed: ADLs, Fall Risk, SDOH 12/12/2024 11/09/2024 Najma John RN Complete Patient-stated goal addressed (add comment) 02/09/2025 11/09/2024 Najma John RN Complete Stay upright, no falls Assessments CDM Assessment Medications: Do you have any questions about taking your medications or which medications you should be taking?:No Do you need any medication refills at this time, including any of the medication you might take only when needed?: No Symptoms: Are you experiencing any new or worsening symptoms that you need to talk about today?: No ADLs No documentation this encounter Fall Risk No documentation this encounter SDOH No documentation this encounter Interventions The following were addressed during this visit: - HTN lab care gaps addressed - Month 3: Schedule/Order BMP Lab - Comprehensive CKD education provided - CKD lab care gaps addressed - Month 2: Provide CKD Education: Renal Diet Basics - Month 3: Schedule/Order Renal Panel Lab Biannually - Month 2: Provide CKD Education: Controlling Potassium - Bi-Weekly Outreach (Recurring) Najma John RN January 06, 2025 1:01 PM documented in this encounterK[facility]25 [facility] History of Present illness Narrative* Ken Contreras MD - 01/05/2025 4:41 PM EDT This note was created using [employer]. Subjective Geoffrey Nassar is a 89 year old female. She had significant relief of left hip and some chronic low back pain after injection of her left hip by geriatrics. She had chronic depression which was not well controlled. She had asthma that was managed by pulmonary. She sees cardiology for pacemaker monitoring. She reported gradually increasing dyspnea on exertion for the past 6 months. She now had to stop and rest after waking ~100 feet. She found herself stopping to rest walking thru a parking lot, or thru a grocery. During her O2 walk test here, she had to rest intermediate with no desaturation. Review of Systems Constitutional: Negative for fatigue and fever. HENT: Negative for congestion. Respiratory: Positive for chest tightness and shortness of breath. Cardiovascular: Negative for chest pain, palpitations and leg swelling. Gastrointestinal: Negative. Genitourinary: Negative for difficulty urinating. Musculoskeletal: Positive for gait problem. Neurological: Negative for dizziness and headaches. ACTIVE PROBLEM LIST Depression, Recurrent Hypothyroidism Extrinsic Asthma (Hcc) Essential Hypertension Bronchiectasis Without Complication (Hcc) Osteoarthritis Ddd (Degenerative Disc Disease), Lumbar Irritable Bowel Syndrome With Both Constipation and Diarrhea Vitamin D Deficiency Anxiety Gastroesophageal Reflux Disease With Esophagitis Tubular Adenoma of Colon Obesity, Class I, Bmi 30-34.9 Nonexudative Age-Related Macular Degeneration, Bilateral, Intermediate Dry Stage Hx of Laser Iridotomy Mixed Stress and Urge Urinary Incontinence 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, Mild Stage Recurrent Uti Asthmatic Bronchitis , Chronic (Hcc) Stage 3 Chronic Kidney Disease, Unspecified Whether Stage 3a Or 3b Ckd (Hcc) Physical Debility Oxygen Desaturation Social History Tobacco Use Smoking status: Former Current packs/day: 0.00 Average packs/day: 0.5 packs/day for 10.0 years (5.0 ttl pk-yrs) Types: Cigarettes Start date: 05/14/1955 Quit date: 05/14/1965 Years since quittin.6 Passive exposure: Past Smokeless tobacco: Never Vaping Use Vaping status: Never Used Substance Use Topics Alcohol use: Yes Comment: 1/2 glass of wine twice per month Drug use: No Current Outpatient Medications Medication Sig nitrofurantoin monohydrate and macrocrystal (MACROBID) 100 mg capsule LORazepam (ATIVAN) 2 mg tab Take 1 tablet by mouth daily at bedtime for 90 days. meloxicam (MOBIC) 15 mg tablet Take 1 tablet by mouth once daily. pantoprazole DR (PROTONIX) 20 mg tablet Take 2 tablets by mouth once daily. PARoxetine (PAXIL) 40 mg tablet Take 1 tablet by mouth once daily. lisinopril (ZESTRIL) 40 mg tablet Take 1 tablet by mouth once daily. lamoTRIgine (LAMICTAL) 25 mg tablet Take 1 tablet by mouth once daily. levothyroxine (SYNTHROID) 88 mcg tablet Take 1 tablet by mouth five times a week. Mondays thru Fridays. None on Saturdays and Sundays. baclofen 5 mg tablet Take 1 tablet by mouth two times a day. furosemide (LASIX) 40 mg tablet Take 40 mg by mouth once daily. BREO ELLIPTA 100-25 mcg/dose inhaler Inhale 1 Inhalation as instructed once daily. ergocalciferol 50,000 unit capsule (VITAMIN D2, DRISDOL) Take 1 capsule by mouth every 4 weeks. aspirin, enteric coated (ASPIRIN, ENTERIC COATED) 81 mg EC tablet Take 1 tablet by mouth once daily. acetaminophen (TYLENOL) 500 mg tablet Take 2 tablets by mouth every 8 hours as needed for pain. vibegron (GEMTESA) 75 mg tablet Take 1 tablet by mouth once daily. Prescribed by Dr. Hansen brimonidine-timolol (COMBIGAN) 0.2-0.5 % ophthalmic solution Use 1 Drop in the left eye twice daily. latanoprost (XALATAN) 0.005 % ophthalmic solution Use 1 Drop in both eyes daily at bedtime. vit C/E/zinc ox/trevor/lut/zeax (ICAPS AREDS2 ORAL) loratadine (CLARITIN REDITABS) 10 mg dissolvable tablet Take 1 tablet by mouth once daily as needed(allergies). DULCOLAX, BISACODYL, ORAL Take 1 tablet by mouth as needed. polyethylene glycol 3350 (MIRALAX, GLYCOLAX) 17 gram/dose powder Drink a mix of 1 scoop in 8oz of water/beverage once daily as needed for constipation. cyanocobalamin (VITAMIN B-12) 1,000 mcg tab Take 1,000 mcg by mouth once daily. albuterol HFA (VENTOLIN HFA) 90 mcg/actuation inhaler Inhale 2 Puffs as instructed every 4 hours asneeded for Wheezing/Shortness of Breath. MULTIVITAMIN TAB Take one(1) tablet daily. buPROPion XL (WELLBUTRIN XL) 150 mg 24 hr tablet Take 1 tablet by mouth once daily. No current facility-administered medications for this visit. Objective BP 118/66 (BP Site: Left Arm, BP Position: Sitting, BP Cuff Size: Large Adult) Pulse 60 Resp 18 Ht 157.5 cm (5' 2) Wt 74.6 kg (164 lb 7.4 oz) BMI 30.08 kg/m Physical Exam Constitutional: General: She is not in acute distress. Appearance: She is not ill-appearing. HENT: Nose: No congestion or rhinorrhea. Eyes: Conjunctiva/sclera: Conjunctivae normal. Cardiovascular: Rate and Rhythm: Normal rate and regular rhythm. Heart sounds: No murmur heard. No gallop. Pulmonary: Effort: No respiratory distress. Breath sounds: No wheezing or rales. Musculoskeletal: Right lower leg: No edema. Left lower leg: No edema. Neurological: General: No focal deficit present. Mental Status: She is alert. Comments: Ambulatory with cane. Psychiatric: Mood and Affect: Mood normal. 01/05/2025 CP PHQ9 Little interest or pleasure 1 - Several days Feeling down, depressed, hopeless 1 - Several days Trouble falling or staying asleep, sleeping too much 3 - nearly every day Feeling tired, having little energy 3 - Nearly every day Poor appetite or overeating 0 - Not at all Feeling bad about yourself, failure or you have let yourself/family down 0 - Not at all Trouble concentrating on things 0 - Not at all Moving or speaking so slowly, or fidgety or restless 0 - Not at all Thoughts that you would be better off , or of hurting yourself in some way 0 - Not at all How difficult have these problems made things Somewhat difficult Interpretation of Total Score 5-9 Mild depression Assessment and Plan 1. Medicare annual wellness visit, subsequent - ICD9: V70.0, ICD10: Z00.00 (primary diagnosis) - see wellness visit. 2. Depression, recurrent - ICD9: 296.30, ICD10: F33.9 Shared medical decision making was done. Discussed medication dosage, usage, goals of therapy, and side effects. - BUPROPION XL 150 MG TAB - Continue PAROXETINE and LAMOTRIGINE for now. - Plan on weaning off LAMOTRIGINE, and then transitioning off PAROXETINE due to possible side effects. 3. Anxiety - ICD9: 300.00, ICD10: F41.9 - Controlled. 4. Allergy to penicillin - ICD9: V14.0, ICD10: Z88.0 - CONSULT TO PENICILLIN ALLERGY 5. Mild intermittent extrinsic asthma with acute exacerbation (HCC) - ICD9: 493.02, ICD10: J45.21 Stable. - See pulmonary. 6. Acquired hypothyroidism - ICD9: 244.9, ICD10: E03.9 - continue current dose of Synthroid - THYROID STIMULATING HORMONE 7. Vitamin D deficiency - ICD9: 268.9, ICD10: E55.9 Recheck level. Continue supplement. - VITAMIN D 25 HYDROXY 8. Stage 3 chronic kidney disease, unspecified whether stage 3a or 3b CKD (HCC) - ICD9: 585.3, ICD10: N18.30 - eGFR: 68 Due for labs - Counseled on avoiding NSAIDs, adequate hydration - BASIC METABOLIC PANEL 9. Dyspnea on exertion - ICD9: 786.09, ICD10: R06.09 Chronic, progressive. - I recommend she see her master mechanic sooner for consideration of stress testing. Ken Contreras MD * Ken Contreras MD - 01/05/2025 3:51 PM EDT Images from the original note were not included. Geoffrey Nassar is a 89 year old female here for a Medicare wellness visit. Medicare Health Risk Assessment General Health Good Exercise: Minutes/Day 10 min Exercise: Days/Week 0 days Alcohol: Daily Use Monthly or less Alcohol: Drinks/Day 1 or 2 Alcohol: 6 or more drinks Never Feel off balance Yes Concerns: Teeth/Dentures No Concerns: Sexual function Decline Troubled by feelings Decline Frequency: Eating healthy diet More than half the days ADLs requiring help None of the above Safety precautions in home/vehicle Yes Smoke, vape, chews tobacco No Difficulty hearing No Difficulty seeing No Current Providers Specialists: I have reviewed specialist-related care of the patient in the medical record. Current care team: Patient Care Team: Ken Contreras MD as PCP - General (Internal Medicine) Dia Lopez, TITLE INSURANCE SALES REPRESENTATIVE.MICROBIOLOGICAL LABORATORY TECHNICIAN as [employer] Deal[employer] (Internal Medicine) Ashely Miller MD (Pulmonary) Cami Mars MD (Geriatrics) Ruben Ferrara PA-C (Orthopedics) Outside specialists seen: Cardiology- Dr. Zane Mcpherson. Uro-gynecology- Dr. Christi Hansen. Pharmacy Stock Clerk-Dr. Guzman Jolly. Plow Shaker-Dr. Neil Hawthorne. Optometry- Dr. Janett Varela, [facility]- Dr. Jann Mello DME supplier: [employer], [employer], [place]. Medical/Family history review Reviewed and updated problem list, medical/surgical/family/social history, medications, and allergies. Opioid use review Opioid Medications (last 90 days) 11/24/2024 00:00 11/29/2024 23:59 Opioid Medications hydrocodone/acetaminophen 1 tablet q 8 H PRN ORAL -Rx End Details Outpatient prescription Anxiety/Depression screening PHQ-9 Score: 11 (Moderate Depression) JESSENIA-7 Score: 4 (Minimal Anxiety) Recommendation: continuing current treatment plan and medication management Cognitive screening Mini Cog Score: 5 Cognitive screening reviewed and No further action needed (score 3-5). Functional Observation Was the patient's Timed Up & Go test unsteady or >= 12 seconds? No Advance Care Planning Surrogate decision maker and/or advance care plan documented Measurements BP 118/66 (BP Site: Left Arm, BP Position: Sitting, BP Cuff Size: Large Adult) Pulse 60 Resp 18 Ht 157.5 cm (5' 2) Wt 74.6 kg (164 lb 7.4 oz) BMI 30.08 kg/m Vision Screening: Follows with optometry/ophthalmology Right: 20/50 Left: 20/ 200 Both: 20/50 Assessment/Plan Medicare annual wellness visit, subsequent (Z00.00) - Counseled on healthy diet and regular exercise - Fall avoidance information provided - Personalized prevention plan provided documented in this encounterK[facility]25 Instructions* Patient Instructions* Ken Contreras MD - 01/05/2025 4:38 PM EDT SCHEDULE SOONER CARDIOLOGY APPOINTMENT WITH DR. MCPHERSON FOR DYSPNEA. Screening schedule The following prevention plan is recommended: There are no preventive care reminders to display for this patient. WHAT YOU CAN DO TO PREVENT FALLS Many falls can be prevented. By making some changes, you can lower your chances of falling. Four things YOU can do to prevent falls for you* and your caregiver 1. Begin a regular exercise program Exercise is one of the most important ways to lower your chances of falling. It makes you stronger and helps you feel better. Exercises that improve balance and coordination (like Basilio Chi) are the most helpful. Lack of exercise leads to weakness and increases your chances of falling. Ask your doctor or health care provider about the best type of exercise program for you. 2. Have your health care provider review your medicines Have your doctor or pharmacist review all the medicines you take, even fnsr-yjw-vbyyogn medicines. As you get older, the way medicines work in your body can change. Some medicines, or combinations of medicines, can make you sleepy or dizzy andcan cause you to fall. 3. Have your vision checked Have your eyes checked by an eye doctor at least once a year. You may be wearing the wrong glasses or have a condition like glaucoma or cataracts that limits your vision. Poor vision can increase your chances of falling. 4. Make your home safer About half of all falls happen at home. To make your home safer: Remove things you can trip over (like papers, books, clothes, and shoes) from stairs and places where you walk. Remove small throw rugs or use double-sided tape to keep the rugs from slipping. Keep items you use often in cabinets you can reach easily without using a step stool. Have grab bars put in next to your toilet and in the tub or shower. Use non-slip mats in the bathtub and on shower floors. Improve the lighting in your home. As you get older, you need brighter lights to see well. Hang light-weight curtains or shades to reduce glare. Have handrails and lights put in on all staircases. Wear shoes both inside and outside the house. Avoid going barefoot or wearing slippers. For more information, contact: Centers for Disease Control and Prevention www.cdc.gov/injury * This information may not apply if you have certain medical conditions. documented in this encounterK[facility]05-01-2025 [facility] History of Present illness Narrative* Najma John RN - 12/22/2024 12:39 PM EDT Images from the original note were not included. [facility] Telephonic Outreach Provider Action/FYI Patient identified by Name and Date of . Discussed care with patient. Program Details Chronic Disease Management Status: Enrolled Effective Dates: 11/09/2024 - present Responsible Staff: Najma John RN Support and Services: Hypertension, Chronic Kidney Disease (CKD) Program Goals Targets Target Due Completed Completed By Outcome CKD lab care gaps addressed 02/09/2025 -- -- -- Comprehensive CKD education provided 02/09/2025 -- -- -- HTN lab care gaps addressed 02/09/2025 -- -- -- Annual Medicare Wellness visit addressed 02/09/2025 12/22/2024 Najma John RN Complete/Scheduled Annual Nephrology visit addressed 02/09/2025 12/22/2024 Najma John RN Patient Declined Biannual PCP visit addressed 02/09/2025 12/22/2024 Najma John RN Patient Declined General education provided (managing stress, where to go/how to contact, etc.) 12/12/2024 12/07/2024 Najma John RN Complete Comprehensive HTN education provided 02/09/2025 12/07/2024 Najma John RN Complete Intake assessments completed: ADLs, Fall Risk, SDOH 12/12/2024 11/09/2024 Najma John RN Complete Patient-stated goal addressed (add comment) 02/09/2025 11/09/2024 Najma John RN Complete Stay upright, no falls Assessments CDM Assessment Medications: Do you have any questions about taking your medications or which medications you should be taking?:No Do you need any medication refills at this time, including any of the medication you might take only when needed?: No Symptoms: Are you experiencing any new or worsening symptoms that you need to talk about today?: No ADLs No documentation this encounter Fall Risk No documentation this encounter SDOH No documentation this encounter Interventions The following were addressed during this visit: - Annual Nephrology visit addressed - Month 1: Provide CKD Education: CKD NORMA Education - Month 1: Provide CKD Education: CKD Zones - Month 1: Provide CKD Education: About CKD - Month 3: Schedule Annual Nephrology Appointment - Biannual PCP visit addressed - Annual Medicare Wellness visit addressed - Schedule Biannual PCP Appointment - Schedule Annual Wellness Visit - Bi-Weekly Outreach (Recurring) Najma John RN December 22, 2024 12:39 PM documented in this encounterK[facility]04-17-2025 Evaluation note* Diagnosis Stage 3 chronic kidney disease, unspecified whether stage 3a or 3b CKD (HCC)- Primary documented in this encounter [facility] Telephone encounter Note* Telephone Encounter - Norma Wong RN - 12/19/2024 10:49 AM EDT Esther calling with [facility] requesting patient's recent OV note with Dr. Mars be faxed to her at FAX #: [phone] for continuity of care. Faxed as requested. Norma Wong RN [facility]04-14-[facility] Miscellaneous Notes* Telephone Encounter - Norma Wong RN - 12/19/2024 10:49 AM EDT Esther calling with [facility] requesting patient's recent OV note with Dr. Mars be faxed to her at FAX #: [phone] for continuity of care. Faxed as requested. Norma Wong RN documented in this encounterKet[facility]04-11-2025 History of Present illness Narrative* Ruben Ferrara PA-C - 12/16/2024 11:00 AM EDT Images from the original note were not included. HISTORY OF PRESENT ILLNESS: Geoffrey is a 89 year old female. She is here for evaluation of Left hip pain. Patient was seen on December 14, 2024 for left hip pain after she sustained a fall [place] the last year landing directlyon her left side. She was evaluated in the hospital but did not have imaging done of her hip. She had significant bruising at the time and she has been having severe and long-lasting pain radiating from her hip up to her back which worsens with movement and improves when she is lying down. Pain is not present at night. Recently saw PCP on 12/14/2024 and received left GT Bursa cortisone injection. Pain in hip is gone today. She otherwise reports bilateral back pain that start along her lumbar spine and radiates to between her shoulder blades. She has a history of back pain and spasms and currently takes meloxicam and baclofen. Patient reports that it is most painful when she is making the bed, putting dishes in social work program coordinator, or ambulating throughout the day. She states that she leans forward when she walks to helpalleviate some back pain. PAIN EVALUATION 12/09/2024 1807 Pain Level: 6 Pain Location: Hip-Left Description: Aching;Pressure;Radiating Duration Amount of Time: 3 Duration Units: Hours Frequency: Intermittent Intervention/Comfort measure: Medication;Relaxation;Exercise;Massage;Pillow support Comments: Hip pain sometimes goes to lower back around kidney area. There is pain also in upper back, at times. The back pain is every day and severe at night Tylenol 500's doesn't help. No pain while sleeping.Resting on couch gives best results. MEDICATIONS Current Outpatient Medications on File Prior to Visit Medication Sig LORazepam (ATIVAN) 2 mg tab Take 1 tablet by mouth daily at bedtime for 90 days. meloxicam (MOBIC) 15 mg tablet Take 1 tablet by mouth once daily. pantoprazole DR (PROTONIX) 20 mg tablet Take 2 tablets by mouth once daily. PARoxetine (PAXIL) 40 mg tablet Take 1 tablet by mouth once daily. lisinopril (ZESTRIL) 40 mg tablet Take 1 tablet by mouth once daily. lamoTRIgine (LAMICTAL) 25 mg tablet Take 1 tablet by mouth once daily. levothyroxine (SYNTHROID) 88 mcg tablet Take 1 tablet by mouth five times a week. Mondays thru Fridays. None on Saturdays and Sundays. baclofen 5 mg tablet Take 1 tablet by mouth two times a day. furosemide (LASIX) 40 mg tablet Take 40 mg by mouth once daily. BREO ELLIPTA 100-25 mcg/dose inhaler Inhale 1 Inhalation as instructed once daily. ergocalciferol 50,000 unit capsule (VITAMIN D2, DRISDOL) Take 1 capsule by mouth every 4 weeks. aspirin, enteric coated (ASPIRIN, ENTERIC COATED) 81 mg EC tablet Take 1 tablet by mouth once daily. acetaminophen (TYLENOL) 500 mg tablet Take 2 tablets by mouth every 8 hours as needed for pain. vibegron (GEMTESA) 75 mg tablet Take 1 tablet by mouth once daily. Prescribed by Dr. Hansen brimonidine-timolol (COMBIGAN) 0.2-0.5 % ophthalmic solution Use 1 Drop in the left eye twice daily. latanoprost (XALATAN) 0.005 % ophthalmic solution Use 1 Drop in both eyes daily at bedtime. vit C/E/zinc ox/trevor/lut/zeax (ICAPS AREDS2 ORAL) loratadine (CLARITIN REDITABS) 10 mg dissolvable tablet Take 1 tablet by mouth once daily as needed(allergies). DULCOLAX, BISACODYL, ORAL Take 1 tablet by mouth as needed. polyethylene glycol 3350 (MIRALAX, GLYCOLAX) 17 gram/dose powder Drink a mix of 1 scoop in 8oz of water/beverage once daily as needed for constipation. cyanocobalamin (VITAMIN B-12) 1,000 mcg tab Take 1,000 mcg by mouth once daily. albuterol HFA (VENTOLIN HFA) 90 mcg/actuation inhaler Inhale 2 Puffs as instructed every 4 hours asneeded for Wheezing/Shortness of Breath. MULTIVITAMIN TAB Take one(1) tablet daily. No current facility-administered medications on file prior to visit. ALLERGIES ALLERGIES Allergen Reactions Shellfish Containin* Unknown Penicillamine Unknown Benadryl [Diphenhyd* Rash Cats Cipro [Ciprofloxaci* Itching Dust Ketamine Unknown Mold Penicillins Rash Shellfish Shortness of Breath Spiriva With Handih* Intolerance not help Sulfa (Sulfonamide * GI Upset Symbicort [Budesoni* Intolerance tremor,shaky Tetanus Toxoid Adso* Intolerance arm swell PAST MEDICAL HISTORY PAST MEDICAL HISTORY Diagnosis Date Allergic conjunctivitis of both eyes 10/08/2021 Asthmatic bronchitis , chronic ([facility]) 01/30/2023 Bradycardia 01/18/2021 Bronchiectasis without complication ([facility]) 11/27/2009 Dr. Jaswant Miller, pulmonary. 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 Diverticulosis of small intestine (without mention of hemorrhage) Enthesopathy of hip region 07/08/2011 Essential hypertension 05/25/2008 Extrinsic asthma 01/29/2006 Fall 10/03/2023 Family history of malignant neoplasm of gastrointestinal tract liver cancer Foraminal stenosis of cervical region 01/30/2012 Gait disturbance 01/29/2017 Gastroesophageal reflux disease with esophagitis 05/13/2013 HERNIA UMBILICAL 12/19/2005 Hypothyroidism 03/17/2005 Irritable bowel syndrome with both constipation and diarrhea 09/23/2016 Non-STEMI (non-ST elevated myocardial infarction) (HCC) 11/19/2016 setting of acute bilateral pulmonary embolism. Nonexudative age-related macular degeneration, bilateral, intermediate dry stage 05/01/2020 Optic cupping of both eyes 05/01/2020 Oral murray 10/29/2020 Pacemaker 07/25/2021 Pulmonary embolism with acute cor pulmonale (HCC) 11/24/2016 She was initially thought to have a NSTEMI, but was found to be a PE with Right Strain and NOT a NSTEMI. Pulmonary nodule 01/08/2017 Punctate keratitis, bilateral 10/08/2021 SAH (subarachnoid hemorrhage) (HCC) 10/03/2023 Subarachnoid hemorrhage (HCC) 10/03/2023 Tubular adenoma of colon 12/29/2017 PAST SURGICAL HISTORY PAST SURGICAL HISTORY Procedure Laterality Date CHOLECYSTECTOMY 1998 COLONOSCOPY FLX DX W/COLLJ SPEC WHEN PFRMD 12/18/2005 COLONOSCOPY FLX DX W/COLLJ SPEC WHEN PFRMD 09/17/2011 COLONOSCOPY FLX DX W/COLLJ SPEC WHEN PFRMD 11/30/2017 Colonoscopy - adenomatous polyp-5 year follow-up EGD 05/29/2017 LASER IRIDOPLASTY OS (LEFT EYE) Left LASER IRIDOTOMY OD (RIGHT EYE) Right PACEMAKER INSERTSION 05/29/2021 dual lead PAST SURGICAL HISTORY OF 09/2007 jacinto eyelid removal dropping skin PAST SURGICAL HISTORY OF Bilateral 11/24/2011 cataract removal 11/19/11, 11/24/11 SLING OPER STRES INCONTINENCE 2004 TONSILLECTOMY HX 195 VAG HYST 250 GM/< W/RMVL TUBE&/OVARY 1996 uterine prolapse, hyst. bilateral oophorectomy VITRECTOMY MECHANICAL PARS PLANA Left SOCIAL HISTORY Tobacco: Ex-smoker FAMILY HISTORY Does a similar condition to what you are experiencing run in your family? No REVIEW OF SYSTEMS: All other systems negative. PHYSICAL EXAM: PE: All other systems deferred. GENERAL: Appears healthy, well-nourished, no deformities. HABITUS: Obese GAIT: Normal, the patient did not have trouble getting onto the exam table. SKIN: Normal Spine Musculoskeletal Exam Palpation Thoracolumbar Tenderness: present Paraspinous: right and left Range of Motion Thoracolumbar Range of motion is normal. RADIOGRAPHS (personally reviewed): mild left hip OA without fracture or acute abnormality. Subchondral cyst within femoral head. MRI: none DIAGNOSIS Encounter Diagnosis ICD-10-CM 1. Chronic bilateral low back pain without sciatica M54.50 CONSULT TO [facility] G89.29 CONSULT TO PHYSICAL THERAPY CANCELED: CONSULT TO PHYSICAL THERAPY 2. Hip pain, left M25.552 3. Pain of erector spinae muscle M79.18 CONSULT TO PHYSICAL THERAPY PLAN Patient has back pain along erector spinae musculature. We will get her into PT and spine consult as she has had chronic back pain and spasms. Follow up with spine. I spent a total of approximately 20 minutes minutes on the date of the service which included preparing to see the patient, [id number] patient care, completing clinical documentation, obtaining and/or reviewing separately obtained history, performing a medically appropriate examination, counseling and educating the patient/family/caregiver, and care coordination (not separately reported). PROCEDURE: Procedures Ruben Ferrara PA-C documented in this encounterK[facility]04-11-2025 [facility]25 History of Present illness Narrative* Cami Mars MD - 12/14/2024 4:50 PM EDT Reason for Visit Trochanteric burisitis HAIDER Carrera is a 89-year-old female, with a history of hypothyroidism, asthma, HTN, depression, cervical stenosis, lumbar DDD, GERD, and subarachnoid hemorrhoids, presenting with fatigue and left hip pain. Geoffrey reports persistent fatigue and left hip pain following a fall on 08/30, where she landed on her left side. She was evaluated in the hospital, where a CT scan of her head and x-rays of her ribs were performed, but her hip was not x- rayed despite a significant bruise. Since the fall, she has experienced severe, long-lasting, and debilitating pain radiating from her hip to her back, which worsens with movement and improves when lying down. The pain is not present at night. She was prescribedhydrocodone by Dr. Valenzuela, which she has used a few times for severe pain, but it causes somnolence.A recent hip x-ray ordered by Dr. Valenzuela showed no fractures or chipped bones. Geoffrey also reports ongoing fatigue despite using nocturnal oxygen therapy for the past 2 months dueto nocturnal desaturation. She has not noticed any improvement in her energy levels and has contacted her air route traffic controller to discuss adjusting the oxygen settings. She denies diabetes mellitus. She is currently taking vitamin B12 1,000 mg daily and vitamin D once a month as prescribed by Dr. Valenzuela. She lives with her older brother, who is 90 years old. Social History Tobacco Use Smoking status: Former Current packs/day: 0.00 Average packs/day: 0.5 packs/day for 10.0 years (5.0 ttl pk-yrs) Types: Cigarettes Start date: 05/14/1955 Quit date: 05/14/1965 Years since quittin.6 Passive exposure: Past Smokeless tobacco: Never Vaping Use Vaping status: Never Used Substance Use Topics Alcohol use: Yes Comment: 1/2 glass of wine twice per month Drug use: No Past medical history, appointments, medications, allergies reviewed. Pertinent Lab/Diagnostic Studies are reviewed and discussed today Current Outpatient Medications: LORazepam (ATIVAN) 2 mg tab meloxicam (MOBIC) [address] (PROTONIX) 20 mg tablet PARoxetine (PAXIL) 40 mg tablet lisinopril (ZESTRIL) 40 mg tablet lamoTRIgine (LAMICTAL) 25 mg tablet levothyroxine (SYNTHROID) 88 mcg tablet baclofen 5 mg tablet furosemide (LASIX) 40 mg tablet BREO ELLIPTA 100-25 mcg/dose inhaler ergocalciferol 50,000 unit capsule (VITAMIN D2, DRISDOL) aspirin, enteric coated (ASPIRIN, ENTERIC COATED) 81 mg EC tablet acetaminophen (TYLENOL) 500 mg tablet vibegron (GEMTESA) 75 mg tablet brimonidine-timolol (COMBIGAN) 0.2-0.5 % ophthalmic solution latanoprost (XALATAN) 0.005 % ophthalmic solution vit C/E/zinc ox/trevor/lut/zeax (ICAPS AREDS2 ORAL) loratadine (CLARITIN REDITABS) 10 mg dissolvable tablet DULCOLAX, BISACODYL, ORAL polyethylene glycol 3350 (MIRALAX, GLYCOLAX) 17 gram/dose powder cyanocobalamin (VITAMIN B-12) 1,000 mcg tab albuterol HFA (VENTOLIN HFA) 90 mcg/actuation inhaler MULTIVITAMIN TAB Current Facility-Administered Medications: triamcinolone acetonide 40 mg injection (KeNALog 40) Health Maintenance There are no preventive care reminders to display for this patient.@ Review Of Systems Constitutional: (+) fatigue Ears/Nose/Mouth/Throat: (+) dryness Musculoskeletal: (+) left hip pain, (+) back pain Neurological: (+) dizziness Psychiatric: (+) depression Physical Exam BP 116/72 Pulse 72 Resp 16 SpO2 96% GENERAL: NAD, alert and oriented. SKIN: Unremarkable, no rash or skin lesions. HEAD: Normocephalic. EYES: PERRLA, EOMI, conjunctiva clear. EARS: External ears normal, canals clear, TM's normal. NOSE/SINUSES: Nares normal. Septum midline. OROPHARYNX: Lips, mucosa, and tongue normal, good dentition. No oral lesions noted. NECK: Supple, no lymphadenopathy, normal thyroid, no carotid bruits. LUNGS: Clear to auscultation bilaterally, no wheezes/rhonchi/rales. HEART: Regular rate and rhythm, no murmurs. No ectopy. EXTREMITIES: Severe tenderness in the left greater trochanteric area. No deformities, no skin discoloration, no edema. NEURO: Awake, alert and oriented x3, cranial nerves II-XII grossly intact, normal gait, no involuntary motions. Imaging: - Left Hip X-ray: Mild osteoarthritis, no fracture or bony lesion - (August) CT Head: No acute abnormality - (August) X-ray Ribs: No acute abnormality Tests: (Today) - MoCA: - PHQ: Assessment and Plan 1. Fatigue, unspecified type (R53.83) Persistent fatigue despite nocturnal oxygen therapy for two months. No improvement noted. - Ordered iron studies to evaluate for deficiency. - Ordered vitamin D levels to assess current status. 2. 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 lower extremity pain (M51.369) Chronic condition contributing to back pain. Recent fall in August exacerbated symptoms. 3. Physical debility (R53.81) Limited mobility and activity due to severe pain in the left hip and back. 4. Iron deficiency (E61.1) Potential contributor to fatigue. - Ordered iron studies. 5. Vitamin D deficiency (E55.9) Patient currently taking vitamin D once a month as per previous physician's instructions. - Ordered vitamin D levels to assess adequacy of current supplementation. 6. Trochanteric bursitis of left hip (M70.62) Severe tenderness in the left greater trochanteric area on examination. Recent hip X-ray showed mild osteoarthritis. - Administered injection of 40 mg Kenalog with 1 mg lidocaine into the left greater trochanteric bursa. 7. Recurrent major depressive disorder, in partial remission (F33.41) PHQ-9 score of 16 indicating moderate to severe depression. Depression exacerbated by chronic pain and fatigue. The patient has Procedure note: The risk, benefits and alternatives of injection and no injection therapy were discussed. The patient consented for an injection. Time out was conducted. The injection site was prepped with a Chlorhexadine swab. The right trochanteric bursa a the tenderest Point was injected with a 22 gauge needle with 1 cc (40 mg) kenalog, 1 cc of lidocaine . The injection site was then dressed with a bandaid. The patient tolerated the injection well. The patient was instructed to call the office if any adverse local effects occurred or any if any questions or concerns arise. Voice recognition software was used to compose this office note. Please excuse any unintended typographical errors. The patient consented to the use of [employer] software for draft documentation of the visit consistent with [facility] Notice of Privacy Practices. Cami Mars MD documented in this encounterKettering [facility]04-08-2025 Telephone encounter Note * Telephone Encounter - Ria Mendoza LPN - 12/13/2024 4:13 PM EDT Order faxed to Alfredo Mendoza LPN [facility]04-08-2025 Miscellaneous Notes* Telephone Encounter - Ria Mendoza LPN - 12/13/2024 4:13 PM EDT Order faxed to Alfredo Mendoza LPN * Telephone Encounter - Ria Mendoza LPN - 12/13/2024 3:47 PM EDT Patient calling and reports she has not noticed a large change in her fatigue level. She is questioning if she may need a higher liter flow on her O2 vs. investigating additional causes for her fatigue? Asking if we should check overnight oximetry on 2L with [employer]? Ria Mendoza LPN documented in this encounterKettering [facility]04-08-2025 Telephone encounter Note * Telephone Encounter - Ria Mendoza LPN - 12/13/2024 3:47 PM EDT Patient calling and reports she has not noticed a large change in her fatigue level. She is questioning if she may need a higher liter flow on her O2 vs. investigating additional causes for her fatigue? Asking if we should check overnight oximetry on 2L with [employer]? Ria Mendoza LPN [facility]04-02-2025 [facility]04-02-2025 History of Present illness Narrative* Najma John RN - 12/07/2024 12:38 PM EDT Images from the original note were not included. [facility] Telephonic Outreach Provider Action/FYI Patient identified by Name and Date of . Discussed care with patient. Program Details Chronic Disease Management Status: Enrolled Effective Dates: 11/09/2024 - present Responsible Staff: Najma John RN Support and Services: Hypertension, Chronic Kidney Disease (CKD) Program Goals Targets Target Due Completed Completed By Outcome Annual Medicare Wellness visit addressed 02/09/2025 -- -- -- Annual Nephrology visit addressed 02/09/2025 -- -- -- Biannual PCP visit addressed 02/09/2025 -- -- -- CKD lab care gaps addressed 02/09/2025 -- -- -- Comprehensive CKD education provided 02/09/2025 -- -- -- HTN lab care gaps addressed 02/09/2025 -- -- -- General education provided (managing stress, where to go/how to contact, etc.) 12/12/2024 12/07/2024 Najma John RN Complete Comprehensive HTN education provided 02/09/2025 12/07/2024 Najma John RN Complete Intake assessments completed: ADLs, Fall Risk, SDOH 12/12/2024 11/09/2024 Najma John RN Complete Patient-stated goal addressed (add comment) 02/09/2025 11/09/2024 Najma John RN Complete Stay upright, no falls Assessments [facility] Assessment Medications: Do you have any questions about taking your medications or which medications you should be taking?:No Do you need any medication refills at this time, including any of the medication you might take only when needed?: No Symptoms: Are you experiencing any new or worsening symptoms that you need to talk about today?: No ADLs No documentation this encounter Fall Risk No documentation this encounter SDOH No documentation this encounter Interventions The following were addressed during this visit: - Comprehensive HTN education provided - Month 1: Review Individual Blood Pressure Target (If established by provider) - Month 1: Provide HTN Education: What is High Blood Pressure - Month 1: Provide HTN Education: When to call your Doctor, When to seek Emergency Care - Month 2: Provide HTN Education: Sodium Controlled Diets - Month 2: Provide HTN Education: High Blood Pressure & Nutrition - Month 3: Provide HTN Education: Understanding Medications - Month 3: Provide HTN Education: Medication Compliance - General education provided (managing stress, where to go/how to contact, etc.) - Bi-Weekly Outreach (Recurring) Najma John RN December 07, 2024 12:44 PM documented in this encounterK[facility]04-01-2025 Telephone encounter Note * Telephone Encounter - Cindy Pathak LPN - 12/06/2024 10:14 AM EDT Prescription Refill Information The patient has been identified by name and date of : Yes Caregiver verified no other encounters exist for this prescription request: Yes Caregiver confirmed with patient/requestor that no other refills are due, in the near future, with this provider at this time: Yes The last office visit in the department: 11/24/24 Does the patient have a future office visit with this provider/department: Yes 01/05/25 Requested Prescriptions Pending Prescriptions Disp Refills LORazepam (ATIVAN) 2 mg tab 30 tablet 2 Sig: Take 1 tablet by mouth daily at bedtime for 90 days. Cindy Pathak LPN December 06, 2024 10:15 AM [facility]04-01-2025 Miscellaneous Notes* Telephone Encounter - Cindy Pathak LPN - 12/06/2024 10:14 AM EDT Prescription Refill Information The patient has been identified by name and date of : Yes Caregiver verified no other encounters exist for this prescription request: Yes Caregiver confirmed with patient/requestor that no other refills are due, in the near future, with this provider at this time: Yes The last office visit in the department: 11/24/24 Does the patient have a future office visit with this provider/department: Yes 01/05/25 Requested Prescriptions Pending Prescriptions Disp Refills LORazepam (ATIVAN) 2 mg tab 30 tablet 2 Sig: Take 1 tablet by mouth daily at bedtime for 90 days. Cindy Pathak LPN December 06, 2024 10:15 AM documented in this encounterK[facility]03-28-2025 Telephone encounter Note * Telephone Encounter - Faby Meza - 12/02/2024 9:20 AM EDT Spoke with patient and scheduled. Faby Meza [facility]03-28-2025 Miscellaneous Notes* Telephone Encounter - Faby Meza - 12/02/2024 9:20 AM EDT Spoke with patient and scheduled. Faby Meza * Telephone Encounter - Gauri Delgado MA - 12/01/2024 6:43 PM EDT Please assist patient with scheduling Dr. Mars/Geriatric schedule. Gauri Delgado MA * Telephone Encounter - Ken Contreras MD - 12/01/2024 6:21 PM EDT ASSESSMENT/PLAN: 1. Fatigue, unspecified type - ICD9: 780.79, ICD10: R53.83 (primary diagnosis) - CONSULT TO GERIATRICS 2. 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 lower extremity pain - ICD9: 722.52, ICD10: M51.369 - CONSULT TO GERIATRICS 3. 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 Asking for referral. Kailey Ilya TODD * Telephone Encounter - Pat Domínguez - 12/01/2024 3:10 PM EDT Pt called in stating she is having back and hip pain and is requesting to see . Pt stated she did not want to see Primary care team for this reason and has a friend who referred her to Sarah.Please advise if willing to see patient. Thank you documented in this encounterK[facility]03-27-2025 Telephone encounter Note * Telephone Encounter - Gauri Delgado MA - 12/01/2024 6:43 PM EDT Please assist patient with scheduling Dr. Mars/Geriatric schedule. Gauri Delgado MA [facility]03-27-2025 Telephone encounter Note* Telephone Encounter - Ken Contreras MD - 12/01/2024 6:21 PM EDT ASSESSMENT/PLAN: 1. Fatigue, unspecified type - ICD9: 780.79, ICD10: R53.83 (primary diagnosis) - CONSULT TO GERIATRICS 2. 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 lower extremity pain - ICD9: 722.52, ICD10: M51.369 - CONSULT TO GERIATRICS 3. 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 Asking for referral. Kailey Caraballo LPN [facility]03-27-2025 Telephone encounter Note* Telephone Encounter - Pat Domínguez - 12/01/2024 3:10 PM EDT Pt called in stating she is having back and hip pain and is requesting to see . Pt stated she did not want to see Primary care team for this reason and has a friend who referred her to Sarah.Please advise if willing to see patient. Thank you [facility]03-25-2025 Telephone encounter Note* Telephone Encounter - Faby Meza - 11/29/2024 1:41 PM EDT Spoke with patient and scheduled. Faby Meza [facility]03-25-2025 Miscellaneous Notes* Telephone Encounter - Faby Meza - 11/29/2024 1:41 PM EDT Spoke with patient and scheduled. Faby Meza * Telephone Encounter - Ken Contreras MD - 11/29/2024 9:43 AM EDT ASSESSMENT/PLAN: 1. Hip pain, left - ICD9: 719.45, ICD10: M25.552 - CONSULT TO ORTHOPAEDICS Ken Contreras MD * Telephone Encounter - Ashely Kahn MA - 11/29/2024 9:38 AM EDT Patient was notified and willing to see ortho please put consult in Ashely Kahn MA * Telephone Encounter - Ashely Kahn MA - 11/29/2024 9:37 AM EDT Images from the original note were not included. Ken Contreras MD 11/29/2024 8:57 AM EDT No fracture. Consider orthopedic consultation. documented in this encounterKettering [facility]03-25-2025 Telephone encounter Note * Telephone Encounter - Ken Contreras MD - 11/29/2024 9:43 AM EDT ASSESSMENT/PLAN: 1. Hip pain, left - ICD9: 719.45, ICD10: M25.552 - CONSULT TO ORTHOPAEDICS Ken Contreras MD [facility]03-25-2025 Telephone encounter Note* Telephone Encounter - Ashely Kahn MA - 11/29/2024 9:38 AM EDT Patient was notified and willing to see ortho please put consult in Ashely Kahn MA [facility]03-25-2025 Telephone encounter Note* Telephone Encounter - Ashely Kahn MA - 11/29/2024 9:37 AM EDT Images from the original note were not included. Ken Contreras MD 11/29/2024 8:57 AM EDT No fracture. Consider orthopedic consultation. [facility]03-20-2025 History of Present illness Narrative* Julia Flores Tech - 11/24/2024 6:50 PM EDT Radiology Service Progress Note PATIENT NAME: Geoffrey Nassar DATE OF SERVICE: November 24, 2024 TIME: 6:47 PM PATIENT IDENTITY VERIFICATION COMPLETED USING TWO (2) IDENTIFIERS: Name and Date of confirmedby patient verbally. FALL SCREENING: Has the patient had 2 falls in the last year or 1 fall with injury or currently using an Ambulatory Assistive Device (Walker, Cane, Wheelchair, Crutches, etc.)? No PATIENT GENDER DATA: Assigned female at . status: : No status:NO. PATIENT RELEVANT IMPLANT DATA REVIEWED: Not Applicable PATIENT PRESENTS WITH AN IMPLANTABLE OR ATTACHED CRUMB PACKER: No RADIOLOGY DEPARTMENT: General X-ray: Exam(s) Completed: Pelvis X-Ray: Pelvis with Hip Left PERIPHERAL IV DATA: Not applicable SIGNED BY: Christophe Nagy November 24, 2024 6:47 PM documented in this encounterK[facility]-20-2025 Note[facility]25 Note[facility]03-20-2025 History of Present illness Narrative* Ken Contreras MD - 11/24/2024 6:06 PM EDT This note was created using MRI Interventionsriter. Subjective Patient presents with: Pain, Back: Radiates down LEFT hip Geoffrey Nassar is a 89 year old female. She's had chronic low back pain, varying in severity. She had major falls last year with injury. Her last fall was in 2023 evaluated in the ER mainly for head and upper body injury. For the past 3 weeks, she's had progressive left hip pain on initial getting up and weight bearing, and when turning to the left with local pressure. She normally takes Tylenol 1000 mg in AM and 1300 mg at bedtime in addition to her meloxicam and baclofen with decreasing relief. Pain was minimal at rest, but was affecting her gait. She was on nocturnal oxygen but indicated she was not feeling better on oxygen. She sees pulmonary.She had concerns about her equipment working properly. Review of Systems Constitutional: Negative for fever and unexpected weight change. Respiratory: Negative for cough and shortness of breath. Cardiovascular: Negative for chest pain and leg swelling. Gastrointestinal: Negative for abdominal pain, constipation, nausea and vomiting. Genitourinary: Negative for difficulty urinating and dysuria. Musculoskeletal: Positive for gait problem. Negative for joint swelling. Skin: Negative for rash. Neurological: Negative for weakness and numbness. ACTIVE PROBLEM LIST Depression, Recurrent (Hcc) Hypothyroidism Extrinsic Asthma Essential Hypertension Bronchiectasis Without Complication (Hcc) Osteoarthritis Ddd (Degenerative Disc Disease), Lumbar Irritable Bowel Syndrome With Both Constipation and Diarrhea Vitamin D Deficiency Anxiety Gastroesophageal Reflux Disease With Esophagitis Tubular Adenoma of Colon Obesity, Class I, Bmi 30-34.9 Nonexudative Age-Related Macular Degeneration, Bilateral, Intermediate Dry Stage Hx of Laser Iridotomy Mixed Stress and Urge Urinary Incontinence 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, Mild Stage Recurrent Uti Asthmatic Bronchitis , Chronic (Hcc) Stage 3 Chronic Kidney Disease, Unspecified Whether Stage 3a Or 3b Ckd (Hcc) Physical Debility Oxygen Desaturation Current Outpatient Medications Medication Sig meloxicam (MOBIC) 15 mg tablet Take 1 tablet by mouth once daily. pantoprazole DR (PROTONIX) 20 mg tablet Take 2 tablets by mouth once daily. PARoxetine (PAXIL) 40 mg tablet Take 1 tablet by mouth once daily. lisinopril (ZESTRIL) 40 mg tablet Take 1 tablet by mouth once daily. lamoTRIgine (LAMICTAL) 25 mg tablet Take 1 tablet by mouth once daily. levothyroxine (SYNTHROID) 88 mcg tablet Take 1 tablet by mouth five times a week. Mondays thru Fridays. None on Saturdays and Sundays. baclofen 5 mg tablet Take 1 tablet by mouth two times a day. LORazepam (ATIVAN) 2 mg tab Take 1 tablet by mouth daily at bedtime for 90 days. furosemide (LASIX) 40 mg tablet Take 40 mg by mouth once daily. BREO ELLIPTA 100-25 mcg/dose inhaler Inhale 1 Inhalation as instructed once daily. ergocalciferol 50,000 unit capsule (VITAMIN D2, DRISDOL) Take 1 capsule by mouth every 4 weeks. aspirin, enteric coated (ASPIRIN, ENTERIC COATED) 81 mg EC tablet Take 1 tablet by mouth once daily. acetaminophen (TYLENOL) 500 mg tablet Take 2 tablets by mouth every 8 hours as needed for pain. vibegron (GEMTESA) 75 mg tablet Take 1 tablet by mouth once daily. Prescribed by Dr. Hansen brimonidine-timolol (COMBIGAN) 0.2-0.5 % ophthalmic solution Use 1 Drop in the left eye twice daily. latanoprost (XALATAN) 0.005 % ophthalmic solution Use 1 Drop in both eyes daily at bedtime. vit C/E/zinc ox/trevor/lut/zeax (ICAPS AREDS2 ORAL) loratadine (CLARITIN REDITABS) 10 mg dissolvable tablet Take 1 tablet by mouth once daily as needed(allergies). DULCOLAX, BISACODYL, ORAL Take 1 tablet by mouth as needed. polyethylene glycol 3350 (MIRALAX, GLYCOLAX) 17 gram/dose powder Drink a mix of 1 scoop in 8oz of water/beverage once daily as needed for constipation. cyanocobalamin (VITAMIN B-12) 1,000 mcg tab Take 1,000 mcg by mouth once daily. albuterol HFA (VENTOLIN HFA) 90 mcg/actuation inhaler Inhale 2 Puffs as instructed every 4 hours asneeded for Wheezing/Shortness of Breath. MULTIVITAMIN TAB Take one(1) tablet daily. No current facility-administered medications for this visit. Objective BP 116/59 Pulse 75 Resp 16 Wt 76.9 kg (169 lb 8.5 oz) BMI 31.01 kg/m Physical Exam Constitutional: General: She is not in acute distress. Cardiovascular: Heart sounds: Normal heart sounds. Pulmonary: Breath sounds: Normal breath sounds. Abdominal: Palpations: Abdomen is soft. Tenderness: There is no abdominal tenderness. Musculoskeletal: Lumbar back: Tenderness present. No swelling or deformity. Decreased range of motion. Positive leftstraight leg raise test. Negative right straight leg raise test. Right hip: Normal. Left hip: Tenderness and bony tenderness present. No crepitus. Decreased range of motion. Decreasedstrength. Left upper leg: Normal. Left knee: Normal. Neurological: General: No focal deficit present. Mental Status: She is alert. Sensory: No sensory deficit. Gait: Gait abnormal. Deep Tendon Reflexes: Reflexes normal. Comments: Ambulatory with cane. Assessment and Plan 1. Hip pain, left - ICD9: 719.45, ICD10: M25.552 (primary diagnosis) Shared Medical Decision Making was done: Medication: hydrocodone. Benefits: Medication may help pain in the short term and not in the road cutter. Risks: Possible side effects were discussed including sedation. Possible interactions: n/a. Warnings: abuse, overdose. Duration: PRN, limit use. Further re commendations will depend on xray. - XR HIP GENERAL 3V PELV/AP/LAT LEFT - HYDROCODONE 5 MG-ACETAMINOPHEN 325 MG TABLET 2. Physical debility - ICD9: 799.3, ICD10: R53.81 Consider PT. 3. Oxygen desaturation - ICD9: 799.02, ICD10: R09.02 Check with DME supplier. 4. Bronchiectasis without complication (HCC) - ICD9: 494.0, ICD10: J47.9 Stable. Ken Contreras MD documented in this encounterK[facility]03-19-2025 NoteWay[facility]03-19-2025 History of Present illness Narrative* Najma John RN - 11/23/2024 12:42 PM EDT Images from the original note were not included. [facility] Care Path Telephonic Outreach Provider Action/FYI Patient identified by Name and Date of . Discussed care with patient. Program Details Chronic Disease Management Status: Enrolled Effective Dates: 11/09/2024 - present Responsible Staff: Najma John, DIONTE Support and Services: Hypertension, Chronic Kidney Disease (CKD) Program Goals Targets Target Due Completed Completed By Outcome General education provided (managing stress, where to go/how to contact, etc.) 12/12/2024 -- -- -- Annual Medicare Wellness visit addressed 02/09/2025 -- -- -- Annual Nephrology visit addressed 02/09/2025 -- -- -- Biannual PCP visit addressed 02/09/2025 -- -- -- CKD lab care gaps addressed 02/09/2025 -- -- -- Comprehensive CKD education provided 02/09/2025 -- -- -- Comprehensive HTN education provided 02/09/2025 -- -- -- HTN lab care gaps addressed 02/09/2025 -- -- -- Intake assessments completed: ADLs, Fall Risk, SDOH 12/12/2024 11/09/2024 Najma John RN Complete Patient-stated goal addressed (add comment) 02/09/2025 11/09/2024 Najma John RN Complete Stay upright, no falls Assessments CDM Assessment Medications: Do you have any questions about taking your medications or which medications you should be taking?:No Do you need any medication refills at this time, including any of the medication you might take only when needed?: No Social: It can be normal to feel anxious or down during a time like this. Would you like to talk to a mental health professional about how you have been feeling?: No Symptoms: Are you experiencing any new or worsening symptoms that you need to talk about today?: No ADLs No documentation this encounter Fall Risk No documentation this encounter SDOH No documentation this encounter Interventions The following were addressed during this visit: - Month 1: Provide General Education: Smoking Cessation - Month 1: Provide General Education: Managing Stress & Anxiety - Month 1: Provide General Education: Where to Go for Care - Month 1: Provide General Education: How to Contact Your Physician Team Najma John RN November 23, 2024 12:44 PM documented in this encounterK[facility]02-24-2025 Telephone encounter Note * Telephone Encounter - Kailey Caraballo LPN - 10/31/2024 1:50 PM EST Patient has been identified by name and date of : Yes Patient phones for refill(s): Requested Prescriptions Pending Prescriptions Disp Refills meloxicam (MOBIC) 15 mg tablet 90 tablet 3 Sig: Take 1 tablet by mouth once daily. pantoprazole DR (PROTONIX) 20 mg tablet 180 tablet 3 Sig: Take 2 tablets by mouth once daily. PARoxetine (PAXIL) 40 mg tablet 90 tablet 3 Sig: Take 1 tablet by mouth once daily. lisinopril (ZESTRIL) 40 mg tablet 90 tablet 3 Sig: Take 1 tablet by mouth once daily. lamoTRIgine (LAMICTAL) 25 mg tablet 90 tablet 3 Sig: Take 1 tablet by mouth once daily. levothyroxine (SYNTHROID) 88 mcg tablet 66 tablet 1 Sig: Take 1 tablet by mouth five times a week. Mondays thru Fridays. None on Saturdays and Sundays. Date of last office visit in primary care: 10/11/2024 Date of next office visit in primary care: 04/11/2025 Please advise. Thank you. Kailey Caraballo LPN. [facility]02-24-2025 Miscellaneous Notes* Telephone Encounter - Kailey Caraballo LPN - 10/31/2024 1:50 PM EST Patient has been identified by name and date of : Yes Patient phones for refill(s): Requested Prescriptions Pending Prescriptions Disp Refills meloxicam (MOBIC) 15 mg tablet 90 tablet 3 Sig: Take 1 tablet by mouth once daily. pantoprazole DR (PROTONIX) 20 mg tablet 180 tablet 3 Sig: Take 2 tablets by mouth once daily. PARoxetine (PAXIL) 40 mg tablet 90 tablet 3 Sig: Take 1 tablet by mouth once daily. lisinopril (ZESTRIL) 40 mg tablet 90 tablet 3 Sig: Take 1 tablet by mouth once daily. lamoTRIgine (LAMICTAL) 25 mg tablet 90 tablet 3 Sig: Take 1 tablet by mouth once daily. levothyroxine (SYNTHROID) 88 mcg tablet 66 tablet 1 Sig: Take 1 tablet by mouth five times a week. Mondays thru Fridays. None on Saturdays and Sundays. Date of last office visit in primary care: 10/11/2024 Date of next office visit in primary care: 04/11/2025 Please advise. Thank you. Kailey Caraballo LPN. documented in this encounterKettering [facility]02-13-2025 History of Present illness Narrative* Ashely Miller MD - 10/20/2024 1:30 PM EST Images from the original note were not included. . [facility] [place] Note Patient name: Geoffrey Nassar PCP: Ken Contreras MD Referring Physician: CC: Multiple issues HPI: Geoffrey Nassar 89 year old female former remote smoker with PMH significant for obesity, asthma, depression, hypothyroidism, CAD, GERD, h/o bilateral PE 2016, h/o SAH, PPM, bronchiectasis last seen in [facility] in 2011, was following with [facility]. Recent evaluation in sleep lab for EDS. Home sleep study showed significant desaturations for over 400 minutes. The in-lab study showed altered circadian rhythm, negative for JADIEL/CSA but did have some desaturations, butonly 2 minutes of saturation < 88%. One liter of oxygen was recommended but no one ever prescribed this for her. She has a longstanding history of asthma as well as bronchiectasis which likely resulted from recurrent pneumonia. She has been on Breo Ellipta with as needed albuterol with good control of her asthma symptoms. She does have some sensation of chest congestion and will occasionally cough up thick mcdonough mucus which she finds difficult to expectorate. No wheezing. No significant shortness of breath although she is limited in her activities due to orthopedic issues with her lower extremities. She has been Acapella/flutter device but does not use it consistently she has been using Robitussin DM to help with her coughing and mucus production. Her main concern is of daytime fatigue.She has not recently been ill with any upper respiratory infection nor hospitalized. She has required bronchoscopy x 2 in the past once for abnormal CT of the chest and once for hemoptysis. DATA: HSAT Name: GEOFFREY NASSAR Date of Study: 05/05/2024 [facility]#: [id number] RESPIRATORY DATA: The study started at 01:06:17 and ended at 09:11:35 and the total recording time was 485 minutes. By convention, sleep is assumed for the whole recording. Snoring was noted. There was a total of 5 respiratory events. Of these events, the total number of apneas was 0 (0 obstructive, 0 mixed, and 0 central (0.0%)) and 5 hypopneas. The central apnea index (RACHEL) was 0.0. The respiratory event index (KYAW) was 0.6 events per hour of study time. The mean oxygen saturation during the study was 87.0%, with a minimum oxygen saturation of 83.0%. The patient spent 444.6 minutes at oxygen saturation measured less than 90% (97.5% of recording time) and 423.1 minutes at oxygen saturation measured at or less than 88% (87.1% of recording time). In-Lab Sleep Study at [facility] in June 2.2 min 88% The difference in her home sleep apnea test and in-lab sleep apnea test may be related to Ativan usage. She normally takes Ativan at bedtime. PFT 2010: Air-trapping PFT [facility] 05/2019: FVC 2.54 L 106% FEV1 1.48 L 83% FEV1/FVC 58% FEF 25-70 0.39 L 31%, 12% improvement postbronchodilator Lung volumes normal DLCO 14.9 78% Labs: Factor II DNA and factor V Leiden negative Imaging / Diagnostic Studies: CXR 09/05/24: I personally reviewed the images which did shows some evidence of bronchiectasis mainly in her right middle lobe and lingula with minimal mucous plugging PAST MEDICAL HISTORY Diagnosis Date Bradycardia 01/18/2021 Bronchiectasis without complication (HCC) 11/27/2009 Dr. Jaswant Miller, pulmonary. 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 Diverticulosis of small intestine (without mention of hemorrhage) Enthesopathy of hip region 07/08/2011 Essential hypertension 05/25/2008 Extrinsic asthma 01/29/2006 Fall 10/03/2023 Family history of malignant neoplasm of gastrointestinal tract liver cancer Foraminal stenosis of cervical region 01/30/2012 Gait disturbance 01/29/2017 Gastroesophageal reflux disease with esophagitis 05/13/2013 HERNIA UMBILICAL 12/19/2005 Hypothyroidism 03/17/2005 Irritable bowel syndrome with both constipation and diarrhea 09/23/2016 Non-STEMI (non-ST elevated myocardial infarction) (HCC) 11/19/2016 setting of acute bilateral pulmonary embolism. Oral murray 10/29/2020 Pacemaker 07/25/2021 Pulmonary embolism with acute cor pulmonale ([facility]) 11/24/2016 She was initially thought to have a NSTEMI, but was found to be a PE with Right Strain and NOT a NSTEMI. Pulmonary nodule 01/08/2017 SAH (subarachnoid hemorrhage) ([facility]) 10/03/2023 Tubular adenoma of colon 12/29/2017 ALLERGIES Allergen Reactions Shellfish Containin* Unknown Penicillamine Unknown Benadryl [Diphenhyd* Rash Cats Cipro [Ciprofloxaci* Itching Dust Ketamine Unknown Mold Penicillins Rash Shellfish Shortness of Breath Spiriva With Handih* Intolerance not help Sulfa (Sulfonamide * GI Upset Symbicort [Budesoni* Intolerance tremor,shaky Tetanus Toxoid Adso* Intolerance arm swell furosemide (LASIX) 40 mg tablet Take 40 mg by mouth once daily. BREO ELLIPTA 100-25 mcg/dose inhaler Inhale 1 Inhalation as instructed once daily. ergocalciferol 50,000 unit capsule (VITAMIN D2, DRISDOL) Take 1 capsule by mouth every 4 weeks. lisinopril (ZESTRIL) 40 mg tablet Take 1 tablet by mouth once daily. albuterol HFA (VENTOLIN HFA) 90 mcg/actuation inhaler Inhale 2 Puffs as instructed every 4 hours asneeded for Wheezing/Shortness of Breath. baclofen 5 mg tablet Take 1 tablet by mouth two times a day. LORazepam (ATIVAN) 2 mg tab Take 1 tablet by mouth daily at bedtime for 90 days. levothyroxine (SYNTHROID) 88 mcg tablet Take 1 tablet by mouth five times a week. Mondays thru Fridays. None on Saturdays and Sundays. meloxicam (MOBIC) 15 mg tablet Take 1 tablet by mouth once daily. pantoprazole DR (PROTONIX) 20 mg tablet Take 2 tablets by mouth once daily. PARoxetine (PAXIL) 40 mg tablet Take 1 tablet by mouth once daily. lamoTRIgine (LAMICTAL) 25 mg tablet Take 1 tablet by mouth once daily. aspirin, enteric coated (ASPIRIN, ENTERIC COATED) 81 mg EC tablet Take 1 tablet by mouth once daily. acetaminophen (TYLENOL) 500 mg tablet Take 2 tablets by mouth every 8 hours as needed for pain. vibegron (GEMTESA) 75 mg tablet Take 1 tablet by mouth once daily. Prescribed by Dr. Hansen brimonidine-timolol (COMBIGAN) 0.2-0.5 % ophthalmic solution Use 1 Drop in the left eye twice daily. latanoprost (XALATAN) 0.005 % ophthalmic solution Use 1 Drop in both eyes daily at bedtime. vit C/E/zinc ox/trevor/lut/zeax (ICAPS AREDS2 ORAL) loratadine (CLARITIN REDITABS) 10 mg dissolvable tablet Take 1 tablet by mouth once daily as needed(allergies). DULCOLAX, BISACODYL, ORAL Take 1 tablet by mouth as needed. polyethylene glycol 3350 (MIRALAX, GLYCOLAX) 17 gram/dose powder Drink a mix of 1 scoop in 8oz of water/beverage once daily as needed for constipation. cyanocobalamin (VITAMIN B-12) 1,000 mcg tab Take 1,000 mcg by mouth once daily. MULTIVITAMIN TAB Take one(1) tablet daily. Social History Tobacco Use Smoking status: Former Current packs/day: 0.00 Average packs/day: 0.5 packs/day for 10.0 years (5.0 ttl pk-yrs) Types: Cigarettes Start date: 05/14/1955 Quit date: 05/14/1965 Years since quittin.4 Passive exposure: Past Smokeless tobacco: Never Vaping Use Vaping status: Never Used Substance Use Topics Alcohol use: Yes Comment: 1/2 glass of wine twice per month Drug use: No No history of tuberculosis No occupational exposures No pets currently FAMILY HISTORY Problem Relation Age of Onset Cancer Mother Arthritis Mother Kidney Disease Mother Cancer Father lung PAST SURGICAL HISTORY Procedure Laterality Date CHOLECYSTECTOMY 1998 COLONOSCOPY FLX DX W/COLLJ SPEC WHEN PFRMD 12/18/2005 COLONOSCOPY FLX DX W/COLLJ SPEC WHEN PFRMD 09/17/2011 COLONOSCOPY FLX DX W/COLLJ SPEC WHEN PFRMD 11/30/2017 Colonoscopy - adenomatous polyp-5 year follow-up EGD 05/29/2017 LASER IRIDOPLASTY OS (LEFT EYE) Left LASER IRIDOTOMY OD (RIGHT EYE) Right PACEMAKER INSERTSION 05/29/2021 dual lead PAST SURGICAL HISTORY OF 09/2007 jacinto eyelid removal dropping skin PAST SURGICAL HISTORY OF Bilateral 11/24/2011 cataract removal 11/19/11, 11/24/11 SLING OPER STRES INCONTINENCE 2004 TONSILLECTOMY HX 1957 VAG HYST 250 GM/< W/RMVL TUBE&/OVARY 1996 uterine prolapse, hyst. bilateral oophorectomy VITRECTOMY MECHANICAL PARS PLANA Left PMH, Social history, family history and surgical history reviewed and updated in EMR REVIEW OF SYSTEMS: CONSTITUTIONAL: No fevers, chills, nightsweats, unintended weight loss HEENT: Persistent nasal congestion/sinus symptoms, with rhinorrhea and postnasal drip CARDIOVASCULAR: No chest pain, dyspnea, palpitations, orthopnea, PND. Edema PULM: See HPI GI: No dysphagia/odynophagia, problematic reflux, constipation NEURO: Poor balance with frequent falls MUSC-SKEL: Arthritis PSY: No concerns regarding depression, anxiety INTEGUMENTARY: No new skin changes, eczema PHYSICAL EXAMINATION: BP 126/80 Pulse 60 Resp 14 Wt 168 lb (76.2kg) SpO2 96% General Appearance: Elderly female, NAD. Skin: Skin color, texture, turgor normal, no suspicious rashes or lesions. Head: Normocephalic, no masses, lesions, tenderness or abnormalities. Oropharynx: No thrush. Mild posterior pharyngeal cobblestoning. Neck: No masses or adenopathy. Lungs: Not labored, normal to percussion, few crackles in right base, no wheezes. Heart: Regular rate and rhythm, no murmurs. Extremities: No edema or clubbing. Assessment/Plan: 1. Nocturnal hypoxemia -She will need a qualifying test to accompany this visit in order to qualify for supplemental oxygen -Overnight oximetry testing -The difference between her HSAT and in lab PSG may be related hypoventilation 2. Bronchiectasis, uncomplicated -Bronchopulmonary hygiene. Patient instructed to use her Acapella device at least daily 3. 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 Follows with [facility] 4. Mild intermittent asthma, uncomplicated -Symptoms controlled with current inhaled therapy -Continue Breo Ellipta with as needed albuterol I spent a total of 65 minutes on the date of the service which included preparing to see the patient, [id number] patient care, completing clinical documentation, obtaining and/or reviewing separately obtained history, performing a medically appropriate examination, ordering medications, tests, or procedures, and independently interpreting results (not separately reported). Ashely Miller MD [facility] [place] documented in this encounterKettering [facility]02-13-2025 NoteWay[facility]02-04-2025 NoteWay[facility]02-04-2025 History of Present illness Narrative* Dia Lopez, TITLE INSURANCE SALES REPRESENTATIVE.MICROBIOLOGICAL LABORATORY TECHNICIAN - 10/11/2024 2:42 PM EST CC: Patient presents with: Recheck: 6 months HPI Geoffrey Nassar is a 89 year old female who presents today for above. Her main concern today is ongoing SOB and excessive daytime sleepiness. She had sleep study that was negative for JADIEL and oxygen sats did not drop low enough to qualify for home oxygen. Patient reports the tech monitoring the testdid not wait much after her pulse ox dropped before putting oxygen on her. She has tried to discusswith her air route traffic controller per sleep medicine recommendations but he doesn't seem worried about it. Taking all medications as prescribed, denies side effects. She does not check her BP at home. Depression and anxiety are stable on Paxil, also takes Ativan at bedtime for sleep. Review of Systems See HPI PAST MEDICAL HISTORY Diagnosis Date Bradycardia 01/18/2021 Bronchiectasis without complication (HCC) 11/27/2009 Dr. Jaswant Miller, pulmonary. 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 Diverticulosis of small intestine (without mention of hemorrhage) Enthesopathy of hip region 07/08/2011 Essential hypertension 05/25/2008 Extrinsic asthma 01/29/2006 Fall 10/03/2023 Family history of malignant neoplasm of gastrointestinal tract liver cancer Foraminal stenosis of cervical region 01/30/2012 Gait disturbance 01/29/2017 Gastroesophageal reflux disease with esophagitis 05/13/2013 HERNIA UMBILICAL 12/19/2005 Hypothyroidism 03/17/2005 Irritable bowel syndrome with both constipation and diarrhea 09/23/2016 Non-STEMI (non-ST elevated myocardial infarction) (HCC) 11/19/2016 setting of acute bilateral pulmonary embolism. Oral murray 10/29/2020 Pacemaker 07/25/2021 Pulmonary embolism with acute cor pulmonale (HCC) 11/24/2016 She was initially thought to have a NSTEMI, but was found to be a PE with Right Strain and NOT a NSTEMI. Pulmonary nodule 01/08/2017 SAH (subarachnoid hemorrhage) (HCC) 10/03/2023 Tubular adenoma of colon 12/29/2017 PAST SURGICAL HISTORY Procedure Laterality Date CHOLECYSTECTOMY 1998 COLONOSCOPY FLX DX W/COLLJ SPEC WHEN PFRMD 12/18/2005 COLONOSCOPY FLX DX W/COLLJ SPEC WHEN PFRMD 09/17/2011 COLONOSCOPY FLX DX W/COLLJ SPEC WHEN PFRMD 11/30/2017 Colonoscopy - adenomatous polyp-5 year follow-up EGD 05/29/2017 LASER IRIDOPLASTY OS (LEFT EYE) Left LASER IRIDOTOMY OD (RIGHT EYE) Right PACEMAKER INSERTSION 05/29/2021 dual lead PAST SURGICAL HISTORY OF 09/2007 jacinto eyelid removal dropping skin PAST SURGICAL HISTORY OF Bilateral 11/24/2011 cataract removal 11/19/11, 11/24/11 SLING OPER STRES INCONTINENCE 2004 TONSILLECTOMY HX 1956 VAG HYST 250 GM/< W/RMVL TUBE&/OVARY 1996 uterine prolapse, hyst. bilateral oophorectomy VITRECTOMY MECHANICAL PARS PLANA Left ALLERGIES Shellfish Containing Products, Penicillamine, Benadryl [Diphenhydramine Hcl], Cats, Cipro[Ciprofloxacin], Dust, Ketamine, Mold, Penicillins, Shellfish, Spiriva With Handihaler [Tiotropium [place]], Sulfa (Sulfonamide Antibiotics), Symbicort [Budesonide-Formoterol], and Tetanus Toxoid Adsorbed MEDICATIONS baclofen 5 mg tablet Take 1 tablet by mouth two times a day. LORazepam (ATIVAN) 2 mg tab Take 1 tablet by mouth daily at bedtime for 90 days. furosemide (LASIX) 40 mg tablet Take 40 mg by mouth once daily. BREO ELLIPTA 100-25 mcg/dose inhaler Inhale 1 Inhalation as instructed once daily. ergocalciferol 50,000 unit capsule (VITAMIN D2, DRISDOL) Take 1 capsule by mouth every 4 weeks. levothyroxine (SYNTHROID) 88 mcg tablet Take 1 tablet by mouth five times a week. Mondays thru Fridays. None on Saturdays and Sundays. meloxicam (MOBIC) 15 mg tablet Take 1 tablet by mouth once daily. pantoprazole DR (PROTONIX) 20 mg tablet Take 2 tablets by mouth once daily. PARoxetine (PAXIL) 40 mg tablet Take 1 tablet by mouth once daily. lisinopril (ZESTRIL) 40 mg tablet Take 1 tablet by mouth once daily. lamoTRIgine (LAMICTAL) 25 mg tablet Take 1 tablet by mouth once daily. aspirin, enteric coated (ASPIRIN, ENTERIC COATED) 81 mg EC tablet Take 1 tablet by mouth once daily. acetaminophen (TYLENOL) 500 mg tablet Take 2 tablets by mouth every 8 hours as needed for pain. vibegron (GEMTESA) 75 mg tablet Take 1 tablet by mouth once daily. Prescribed by Dr. Hansen brimonidine-timolol (COMBIGAN) 0.2-0.5 % ophthalmic solution Use 1 Drop in the left eye twice daily. latanoprost (XALATAN) 0.005 % ophthalmic solution Use 1 Drop in both eyes daily at bedtime. vit C/E/zinc ox/trevor/lut/zeax (ICAPS AREDS2 ORAL) loratadine (CLARITIN REDITABS) 10 mg dissolvable tablet Take 1 tablet by mouth once daily as needed(allergies). DULCOLAX, BISACODYL, ORAL Take 1 tablet by mouth as needed. polyethylene glycol 3350 (MIRALAX, GLYCOLAX) 17 gram/dose powder Drink a mix of 1 scoop in 8oz of water/beverage once daily as needed for constipation. cyanocobalamin (VITAMIN B-12) 1,000 mcg tab Take 1,000 mcg by mouth once daily. albuterol HFA (VENTOLIN HFA) 90 mcg/actuation inhaler Inhale 2 Puffs as instructed every 4 hours asneeded for Wheezing/Shortness of Breath. MULTIVITAMIN TAB Take one(1) tablet daily. furosemide (LASIX) 40 mg/4 mL soln FAMILY HISTORY Problem Relation Age of Onset Cancer Mother Arthritis Mother Kidney Disease Mother Cancer Father lung Social History Tobacco Use Smoking status: Former Current packs/day: 0.00 Average packs/day: 0.5 packs/day for 10.0 years (5.0 ttl pk-yrs) Types: Cigarettes Start date: 05/14/1955 Quit date: 05/14/1965 Years since quittin.4 Passive exposure: Past Smokeless tobacco: Never Vaping Use Vaping status: Never Used Substance Use Topics Alcohol use: Yes Comment: 1/2 glass of wine twice per month Drug use: No BP 120/72 Pulse (!) 58 Resp 16 Wt 76.5 kg (168 lb 10.4 oz) SpO2 96% BMI 30.85 kg/m Physical Exam Vitals reviewed. Constitutional: Appearance: Normal appearance. Cardiovascular: Rate and Rhythm: Normal rate and regular rhythm. Pulmonary: Effort: Pulmonary effort is normal. Breath sounds: Normal breath sounds. No wheezing, rhonchi or rales. Skin: General: Skin is warm and dry. Neurological: Mental Status: She is alert. Psychiatric: Mood and Affect: Mood normal. Health maintenance reviewed with patient: Covid-19 Vaccine( season) due on 05/27/2025 RSV Vaccine(1 - 1-dose 75+ series) due on 10/11/2025 Diabetes Screening due on 05/27/2027 DTaP,Tdap,Td Vaccine(3 - Td or Tdap) due on 05/21/2033 Bone Density Screening Completed Spirometry Completed Influenza Vaccine Completed Advance Directive Discussion Completed Shingrix Vaccine Completed Pneumococcal Vaccine: 50+ Completed DATA REVIEWED: Most recent labs ASSESSMENT/PLAN: 1. Nocturnal hypoxia - ICD9: 327.24, ICD10: G47.34 (primary diagnosis) Patient requesting second opinion, will refer to [facility] pulmonology - CONSULT TO PULMONARY MEDICINE 2. Asthmatic bronchitis , chronic (HCC) - ICD9: 493.20, ICD10: J44.89 Stable 3. Depression, recurrent (HCC) - ICD9: 296.30, ICD10: F33.9 Stable 4. Stage 3 chronic kidney disease, unspecified whether stage 3a or 3b CKD (HCC) - ICD9: 585.3, ICD10: N18.30 - eGFR: 68 Stable - Counseled on avoiding NSAIDs, adequate hydration - Counseled on low sodium diet 5. Bronchiectasis without complication (HCC) - ICD9: 494.0, ICD10: J47.9 stable - CONSULT TO PULMONARY MEDICINE 6. Essential hypertension - ICD9: 401.9, ICD10: I10 - Controlled - Continue current medications - Recommend home blood pressure monitoring, to bring results to next visit - Encouraged sodium restriction, DASH or Mediterranean diet - Recommend regular aerobic exercise Prescription instructions reviewed with patient as applicable. Potential red flag symptoms discussed with the patient. Reviewed appropriate action plan to take if red flag symptoms occur. Patient agreeable to treatment plan. Dia Lopez APRN.BERTHA Medical Decision Making: Problems: Moderate: 2+ stable chronic illnesses and New problem with uncertain prognosis Data: Unique source(s) for external note(s) reviewed: 2 Unique test result(s) reviewed: 2 Risk: Moderate: Drug management Medical Decision Making Level: 4 - Moderate documented in this encounterK[facility]-2025 Miscellaneous Notes* Telephone Encounter - Faby Sears RN - 09/28/2024 10:53 AM EST Esther from [facility] calls and reports that patient has been complaining of fatigue. Patient is sleeping at night as well as daytime. Patient's O2 will drop to 70s/80s but then does recover quickly. Pulmonology was called about this at end of August. Pulmonology had advised patient to go to ER. Patient was seen in ER on 09/05/2024 for this. Patient had some testing done which was negative. Patient never followed up with PCP or air route traffic controller after ER visit. Patient has appointment with provider next week and asking if this can be addressed. Advised Esther that patient needs to see air route traffic controller for this as well. Faby Sears RN documented in this encounterK[facility]01-22-2025 Telephone encounter Note * Telephone Encounter - Faby Sears RN - 09/28/2024 10:53 AM EST Esther from [facility] calls and reports that patient has been complaining of fatigue. Patient is sleeping at night as well as daytime. Patient's O2 will drop to 70s/80s but then does recover quickly. Pulmonology was called about this at end august. Pulmonology had advised patient to go to ER. Patient was seen in ER on 09/05/2024 for this. Patient had some testing done which was negative. Patient never followed up with PCP or air route traffic controller after ER visit. Patient has appointment with provider next week and asking if this can be addressed. Advised Esther that patient needs to see air route traffic controller for this as well. Faby Sears RN [facility]12-30-[facility] Telephone encounter Note* Telephone Encounter - Kailey Caraballo LPN - 09/05/2024 12:33 PM EST Patient has been identified by name and date of : Yes Patient phones for refill(s): Requested Prescriptions Pending Prescriptions Disp Refills baclofen 5 mg tablet 180 tablet 1 Sig: Take 1 tablet by mouth two times a day. Date of last office visit in primary care: 05/27/2024 Date of next office visit in primary care: 09/04/2024 Please advise. Thank you. Kailey Caraballo LPN. [facility]12-30-2024 Miscellaneous Notes* Telephone Encounter - Kailey Caraballo LPN - 09/05/2024 12:33 PM EST Patient has been identified by name and date of : Yes Patient phones for refill(s): Requested Prescriptions Pending Prescriptions Disp Refills baclofen 5 mg tablet 180 tablet 1 Sig: Take 1 tablet by mouth two times a day. Date of last office visit in primary care: 05/27/2024 Date of next office visit in primary care: 09/04/2024 Please advise. Thank you. Kailey Caraballo LPN. documented in this encounterK[facility]12-06-2024 Telephone encounter Note * Telephone Encounter - Adelaida Almendarez LPN - 08/12/2024 1:41 PM EST Phoned patient and she had already spoken to Esther and she is willing to do the referral. Printed items and faxed as requested. [facility]-06-[facility] Miscellaneous Notes* Telephone Encounter - Adelaida Almendarez LPN - 08/12/2024 1:41 PM EST Phoned patient and she had already spoken to Esther and she is willing to do the referral. Printed items and faxed as requested. * Telephone Encounter - Ken Contreras MD - 08/12/2024 7:49 AM EST Check with Geoffrey if she agrees to referral. Send referral with patient consent. * Telephone Encounter - Anny Frye LPN - 08/11/2024 3:01 PM EST Esther from [facility] calling, they see patients brother and know that patient had a recent fall and feel that they would be able to help with education and address safety concerns for patient. States if PCP is agreeable to please fax face sheet, H & P, and Med list to [phone]. Please advise. documented in this encounterK[facility]12-06-2024 Telephone encounter Note * Telephone Encounter - Ken Contreras MD - 08/12/2024 7:49 AM EST Check with Geoffrey if she agrees to referral. Send referral with patient consent. [facility]-05-[facility] Telephone encounter Note* Telephone Encounter - Anny Frye LPN - 08/11/2024 3:01 PM EST Esther from [facility] calling, they see patients brother and know that patient had a recent fall and feel that they would be able to help with education and address safety concerns for patient. States if PCP is agreeable to please fax face sheet, H & P, and Med list to [phone]. Please advise. [facility]12-02-[facility] Telephone encounter Note* Telephone Encounter - Cindy Pathak LPN - 08/08/2024 1:31 PM EST Patient called stating that she fell yesterday evening. Feel backward hitting her back and back of head. [facility] was called and evaluated her but did not take her to ER as they felt she was stable. Concerning symptoms is that she is having a headache at the base of her skull were she it her head.Had a fall in the past that caused a brain bleed. The recommendation from this nurse was that patient should be evaluated at the ER as they are usually able to complete CT scan of the brain right away if they feel it is warranted. Patient agreed to same and will go to [facility] ER. [facility]12-[facility] Miscellaneous Notes* Telephone Encounter - Cindy Pathak LPN - 08/08/2024 1:31 PM EST Patient called stating that she fell yesterday evening. Feel backward hitting her back and back of head. [facility] was called and evaluated her but did not take her to ER as they felt she was stable. Concerning symptoms is that she is having a headache at the base of her skull were she it her head.Had a fall in the past that caused a brain bleed. The recommendation from this nurse was that patient should be evaluated at the ER as they are usually able to complete CT scan of the brain right away if they feel it is warranted. Patient agreed to same and will go to [facility] ER. documented in this encounterKet[facility]11-04-2024 Telephone encounter Note * Telephone Encounter - Meg Arreguin OCCA - 07/11/2024 1:02 PM EST Information faxed as requested below. EVAN Weeks [facility]11-04-2024 Miscellaneous Notes* Telephone Encounter - Meg Arreguin OCCA - 07/11/2024 1:02 PM EST Information faxed as requested below. EVAN Weeks * Telephone Encounter - Meg Arreguin OCCA - 07/08/2024 4:39 PM EDT TC to [facility] at . Office is currently closed, please call back later forfax number. EVAN Weeks * Telephone Encounter - Jyotsna Donohue APRN.CNP - 07/08/2024 3:20 PM EDT Please fax my progress note and her PSG results to her Bundler Dr Jaswant Miller at [facility] Jyotsna Donohue APRN.CNP * Telephone Encounter - Jayde Bautista LPN - 06/24/2024 11:15 AM EDT Please see attached sleep study results- Scan on 06/24/2024 10:56 AM by Provider, ELOY StevensonC: PSG [facility] 06/21/24 Jayde Bautista LPN documented in this encounterK[facility]11-01-2024 Telephone encounter Note * Telephone Encounter - Meg Arreguin OCCA - 07/08/2024 4:39 PM EDT TC to [facility] at . Office is currently closed, please call back later forfax number. EVAN Weeks [facility]11-01-2024 Telephone encounter Note* Telephone Encounter - Jyotsna Donhoue APRN.CNP - 07/08/2024 3:20 PM EDT Please fax my progress note and her PSG results to her Bundler Dr Jaswant Miller at [facility] Jyotsna Donohue APRN.CNP [facility] Work Phone: 1(904) 146-837111-01-2024 Instructions* Patient Instructions* Jyotsna Donohue APRN.CNP - 07/08/2024 11:09 AM EDT We will notify Dr Jaswant Miller of your in-lab sleep study results documented in this encounterK[facility]11-01-2024 History of Present illness Narrative* Jyotsna Donohue APRN.CNP - 07/08/2024 10:30 AM EDT Images from the original note were not included. [facility] Follow up/ Established patient visit Date of last visit : 04/18/2024 The following Impression/Plan was copied and pasted from the patient's last [facility] visit on 04/18/24: ASSESSMENT/PLAN: 1. Hypersomnia - ICD9: 780.54, ICD10: G47.10 (primary diagnosis) 2. 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 Insomnia, unspecified type - ICD9: 780.52, ICD10: G47.00 4. History of depression - ICD9: V11.8, ICD10: Z86.59 5. History of anxiety - ICD9: V11.8, ICD10: Z86.59 6. Snoring - ICD9: 786.09, ICD10: R06.83 7. Nocturia - ICD9: 788.43, ICD10: R35.1 8. Class 1 obesity with body mass index (BMI) of 31.0 to 31.9 in adult, unspecified obesity type, unspecified whether serious comorbidity present - ICD9: 278.00, V85.31, ICD10: E66.9, Z68.31 Patient with complaints of being unable to wake up and feeling tired during the day - symptoms likely multifactorial. Prior sleep study unremarkable per report as above, but 5 years ago and possible that pt has developed a sleep disorder such as JADIEL that is now disrupting sleep and contributing to symptoms. Pt requests not having another sleep study in lab, and thus, will evaluate by means of HSAT with pt understanding limitations. However, history suggests other factors contributing and would include: -Abnormal circadian pattern (delayed sleep-wake) with pt going to sleep well after midnight and waking around noon the following day on average. Discussed the etiology and physiology of such disorder, but pt not wanting to change her sleep schedule. During our discussion, patient does not want to change her bed or wake time due to her brother. They're patter is to go to eat at 7PM, watch a movie at 9PM, then bedtime as above - I would not want to give that up. -Medication effect with pt taking multiple sedating meds during the day including muscle relaxants as well as Ativan 2.0mg at night. States cannot fall asleep without Ativan due to breathing issues, but appears likely due to racing thoughts and underlying mood disorders. I suspect that patient is unable to metabolize medication as she once did, and now her having a difficult time waking in the AMis due to Ativan and other sedating meds. Pt not wanting to stop Ativan at this time. However, willrefer to [facility] to see if they may be able to work with pt and help her relax more during the night and feel more comfortable in reducing dosing of sedating meds. In addition, I would recommend that patient be seen by [facility]rystal-psych to review medications being used for anxiety and depression, as again, I suspect these are contributing to daytime sleepiness. Currently denies sleep onset insomnia, but again, that is likely due to her being on sedating meds. -Nocturia is resulting in fragmentation of sleep. Recommend patient follow up with urology. Advised pt not to drive or operate heavy machinery if sleep. Encouraged weight loss. I spent a total of 45+ minutes on the date of the service which included preparing to see the patient, [id number] patient care, completing clinical documentation, obtaining and/or reviewing separately obtained history, performing a medically appropriate examination, counseling and educating the pa tient/family/caregiver, ordering medications, tests, or procedures, and communicating results to the patient/family/caregiver. PDMP website checked and validated. All prescriptions have been APPROPRIATELY filled. No suspiciousactivity was identified. 04/18/2024 by Kaya Cartwright MD Here for follow up for discussion of sleep study results. Dr Cartwright evaluated her for hypersomnia--difficulty waking up and feeling tired during the day, may be exacerbated by ativan 2 mg nightly. He obtained HSAT to rule out JADIEL--it showed hypoxia even in the absence of respiratory events thereforehector was sent for in- lab PSG which she had done at [facility]. She was put on supplemental O2 just a couple of minutes into the study with O2 bobbi 88%. 05/05/24 HSAT: AHI 0.6, supine (3.5 min) 17.1, mean O2 87%, min O2 83%, spent 87% of recording time<88% 06/21/24 PSG: Sleep efficiency 14% Sleep onset 60 min WASO 323 min No REM PLM index 0.0 AHI (4%) 1.8, supine AHI 4.1 O2 bobbi 88%, spent 2.2 min <=88% Supplemental O2 1 LPM added Baseline wake TCO2 42 She reports having no energy She did feel better after taking lasix prescribed by her master mechanic Dr Mcpherson, this is a new prescription for her, and he stopped amlodipine Her air route traffic controller is Dr Jaswant Miller at [facility] Sleep is fine Takes lorazepam 2 mg Gets into bed around 1 AM, reads for 30 min then goes to sleep WASO for nocturia, was every 2 hrs but last night she slept for 6 hrs straight, just completed 90 days of antibiotic for recurrent UTI Gets up 11 AM PATIENT-ENTERED QUESTIONNAIRE SLEEP SCORES 07/03/2024 Sleep Questions Reason for visit: Excessive daytime sleepiness Abnormal sleep/wake timing Accidents or near accidents due to drowsy drivin Multiple values from one day are sorted in reverse-chronological order 04/14/2024 07/03/2024 [place] Sleepiness Scale Score 9 (No clinically significant daytime sleepiness) 12 (Excessive daytime sleepiness present) 04/14/2024 07/03/2024 PROMIS CAT Sleep Disturbance PROMIS Sleep Disturbance T-Score 43 (within normal limits) 46 (within normal limits) PROMIS Sleep Disturbance Percentile 76 66 11/05/2023 04/15/2024 05/26/2024 PHQ-9 Score 12 12 12 9 10 09/29/2023 03/27/2024 07/03/2024 PROMIS Global Health - (T-Scores - the mean of general population = 50. Five points is a clinicallymeaningful difference.) Physical T-Score 34.9 39.8 34.9 Mental T-Score 36.3 43.5 41.1 ALLERGIES Allergen Reactions Shellfish Containin* Unknown Penicillamine Unknown Benadryl [Diphenhyd* Rash Cats Cipro [Ciprofloxaci* Itching Dust Ketamine Unknown Mold Penicillins Rash Shellfish Shortness of Breath Spiriva With Handih* Intolerance not help Sulfa (Sulfonamide * GI Upset Symbicort [Budesoni* Intolerance tremor,shaky Tetanus Toxoid Adso* Intolerance arm swell CURRENT MEDICATIONS: furosemide (LASIX) 40 mg/4 mL soln furosemide (LASIX) 40 mg tablet Take 40 mg by mouth once daily. LORazepam (ATIVAN) 2 mg tab Take 1 tablet by mouth daily at bedtime for 90 days. BREO ELLIPTA 100-25 mcg/dose inhaler Inhale 1 Inhalation as instructed once daily. baclofen 5 mg tablet Take 1 tablet by mouth two times a day. ergocalciferol 50,000 unit capsule (VITAMIN D2, DRISDOL) Take 1 capsule by mouth every 4 weeks. levothyroxine (SYNTHROID) 88 mcg tablet Take 1 tablet by mouth five times a week. Mondays thru Fridays. None on Saturdays and Sundays. meloxicam (MOBIC) 15 mg tablet Take 1 tablet by mouth once daily. pantoprazole DR (PROTONIX) 20 mg tablet Take 2 tablets by mouth once daily. PARoxetine (PAXIL) 40 mg tablet Take 1 tablet by mouth once daily. lisinopril (ZESTRIL) 40 mg tablet Take 1 tablet by mouth once daily. lamoTRIgine (LAMICTAL) 25 mg tablet Take 1 tablet by mouth once daily. aspirin, enteric coated (ASPIRIN, ENTERIC COATED) 81 mg EC tablet Take 1 tablet by mouth once daily. acetaminophen (TYLENOL) 500 mg tablet Take 2 tablets by mouth every 8 hours as needed for pain. vibegron (GEMTESA) 75 mg tablet Take 1 tablet by mouth once daily. Prescribed by Dr. Hansen brimonidine-timolol (COMBIGAN) 0.2-0.5 % ophthalmic solution Use 1 Drop in the left eye twice daily. latanoprost (XALATAN) 0.005 % ophthalmic solution Use 1 Drop in both eyes daily at bedtime. vit C/E/zinc ox/trevor/lut/zeax (ICAPS AREDS2 ORAL) loratadine (CLARITIN REDITABS) 10 mg dissolvable tablet Take 1 tablet by mouth once daily as needed(allergies). DULCOLAX, BISACODYL, ORAL Take 1 tablet by mouth as needed. polyethylene glycol 3350 (MIRALAX, GLYCOLAX) 17 gram/dose powder Drink a mix of 1 scoop in 8oz of water/beverage once daily as needed for constipation. cyanocobalamin (VITAMIN B-12) 1,000 mcg tab Take 1,000 mcg by mouth once daily. albuterol HFA (VENTOLIN HFA) 90 mcg/actuation inhaler Inhale 2 Puffs as instructed every 4 hours asneeded for Wheezing/Shortness of Breath. MULTIVITAMIN TAB Take one(1) tablet daily. PHYSICAL EXAMINATION: Vital Signs: BP 127/82 (BP Site: Right Arm, BP Position: Sitting) Pulse 64 Resp 18 Wt 77.6 kg (171 lb 1.2 oz) SpO2 94% BMI 31.29 kg/m PHYSICAL EXAM: General appearance: pleasant, NAD Mental status: alert and oriented, able to provide own history Constitutional: WNL Skin: No visible rashes on exposed skin Neuro: No focal deficits observed, no tremors IMPRESSION/PLAN: Excessive daytime sleepiness (primary encounter diagnosis) Geoffrey Nassar is a delightful 89 year old female with excessive daytime sleepiness, lack of energy, no JADIEL on HSAT or PSG, hypoxia on HSAT even in the absence of respiratory events therefore she wassent for in-lab study. She was put on supplemental O2 just a couple of minutes into the study with O2 bobbi 88%, so it does not appear to be long enough with hypoxia to qualify for supplemental O2. Case discussed with Dr Cartwright. Her Bundler is Dr Jaswant Miller at [facility] -- will update him on her PSG; pt is aware of this plan. Her sleep has improved with treatment of chronic UTI and with lasix from Cardiology, much less nocturia She can follow up with Sleep prn Jyotsna Donohue APRN.MICROBIOLOGICAL LABORATORY TECHNICIAN documented in this encounterK[facility]11-01-2024 NoteWay[facility]-30-[facility] Instructions* Patient Instructions* Ailyn Bonner APRN.CNP - 07/06/2024 2:58 PM EDT Continue to work with sleep medicine. Follow up in 6 months. documented in this encounterK[facility]10-30-2024 NoteWayne [facility]10-30-2024 History of Present illness Narrative* Ailyn Bonner APRN.CNP - 07/06/2024 2:40 PM EDT IMPRESSION: Geoffrey Nassar is a 89 year old female. PMHx of anxiety, depression, diverticulosis, HTN, PE, pacemaker, asthma, umbilical hernia, GERD, hypothyroidism, degenerative disc disease (lumbar) tubular adenoma of the colon, recurrent falls who sustained a fall on 10/02/2023. She was evaluated at the TBI clinic on 11/09/23 following a fall in which she was found to have a subarachnoid hemorrhage. She was monitored in the ICU and repeat imaging done, non surgical intervention. She arrives today for followup. No diagnosis found. 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 Fatigue, unspecified type - ICD9: 780.79, ICD10: R53.83 (primary diagnosis) - continue to follow with sleep medicine 2. Personal history of traumatic brain injury - ICD9: V15.52, ICD10: Z87.820 - follow up in 6 months 3. Impaired functional mobility, balance, gait, and endurance - ICD9: V49.89, ICD10: Z74.09 - continue with PT once oxygenation improves. Discussed reaching out to air route traffic controller. Pt agreeable. No orders found for this visit on 07/06/24. Subjective: Patient presents with: Follow Up: 6 months Denies any concerns since her last visit. Denies any falls. Completed speech therapy, still does note some word finding difficulty. Has followed with sleep medicine and completed a sleep study last week. Has scheduled appt on Thursday to go over sleep study results. She was continuing to work with [employer] is on hold due to oxygen desaturation. Recently just started on lasix. Continues to have issueswith fatigue. Recent labs/Imaging related to complaint: CT BRAIN WO IVCON IMPRESSION: Complete interval resolution of previously seen small subarachnoid hemorrhage along the left parietal lobe and left parietal operculum, when compared to most recent prior CT of 10/03/2023. No new hemorrhage Medications Reviewed furosemide (LASIX) 40 mg tablet Take 40 mg by mouth once daily. LORazepam (ATIVAN) 2 mg tab Take 1 tablet by mouth daily at bedtime for 90 days. BREO ELLIPTA 100-25 mcg/dose inhaler Inhale 1 Inhalation as instructed once daily. baclofen 5 mg tablet Take 1 tablet by mouth two times a day. ergocalciferol 50,000 unit capsule (VITAMIN D2, DRISDOL) Take 1 capsule by mouth every 4 weeks. levothyroxine (SYNTHROID) 88 mcg tablet Take 1 tablet by mouth five times a week. Mondays thru Fridays. None on Saturdays and Sundays. meloxicam (MOBIC) 15 mg tablet Take 1 tablet by mouth once daily. pantoprazole DR (PROTONIX) 20 mg tablet Take 2 tablets by mouth once daily. PARoxetine (PAXIL) 40 mg tablet Take 1 tablet by mouth once daily. lisinopril (ZESTRIL) 40 mg tablet Take 1 tablet by mouth once daily. lamoTRIgine (LAMICTAL) 25 mg tablet Take 1 tablet by mouth once daily. aspirin, enteric coated (ASPIRIN, ENTERIC COATED) 81 mg EC tablet Take 1 tablet by mouth once daily. acetaminophen (TYLENOL) 500 mg tablet Take 2 tablets by mouth every 8 hours as needed for pain. vibegron (GEMTESA) 75 mg tablet Take 1 tablet by mouth once daily. Prescribed by Dr. Hansen brimonidine-timolol (COMBIGAN) 0.2-0.5 % ophthalmic solution Use 1 Drop in the left eye twice daily. latanoprost (XALATAN) 0.005 % ophthalmic solution Use 1 Drop in both eyes daily at bedtime. vit C/E/zinc ox/trevor/lut/zeax (ICAPS AREDS2 ORAL) loratadine (CLARITIN REDITABS) 10 mg dissolvable tablet Take 1 tablet by mouth once daily as needed(allergies). DULCOLAX, BISACODYL, ORAL Take 1 tablet by mouth as needed. polyethylene glycol 3350 (MIRALAX, GLYCOLAX) 17 gram/dose powder Drink a mix of 1 scoop in 8oz of water/beverage once daily as needed for constipation. cyanocobalamin (VITAMIN B-12) 1,000 mcg tab Take 1,000 mcg by mouth once daily. albuterol HFA (VENTOLIN HFA) 90 mcg/actuation inhaler Inhale 2 Puffs as instructed every 4 hours asneeded for Wheezing/Shortness of Breath. MULTIVITAMIN TAB Take one(1) tablet daily. furosemide (LASIX) 40 mg/4 mL soln OAR[place] reviewed to confirm/clarify any controlled medications Allergies Reviewed PAST MEDICAL HISTORY: 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 Pacemaker Punctate Keratitis, 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, Mild Stage Allergic Conjunctivitis of Both Eyes Recurrent Uti Asthmatic Bronchitis , Chronic (Hcc) Stage 3 Chronic Kidney Disease, Unspecified Whether Stage 3a Or 3b Ckd (Hcc) Subarachnoid Hemorrhage (Hcc) Physical Debility Oxygen Desaturation PAST SURGICAL HISTORY Procedure Laterality Date CHOLECYSTECTOMY 1998 COLONOSCOPY FLX DX W/COLLJ SPEC WHEN PFRMD 12/18/2005 COLONOSCOPY FLX DX W/COLLJ SPEC WHEN PFRMD 09/17/2011 COLONOSCOPY FLX DX W/COLLJ SPEC WHEN PFRMD 11/30/2017 Colonoscopy - adenomatous polyp-5 year follow-up EGD 05/29/2017 LASER IRIDOPLASTY OS (LEFT EYE) Left LASER IRIDOTOMY OD (RIGHT EYE) Right PACEMAKER INSERTSION 05/29/2021 dual lead PAST SURGICAL HISTORY OF 09/2007 jacinto eyelid removal dropping skin PAST SURGICAL HISTORY OF Bilateral 11/24/2011 cataract removal 11/19/11, 11/24/11 SLING OPER STRES INCONTINENCE 2004 TONSILLECTOMY HX 1956 VAG HYST 250 GM/< W/RMVL TUBE&/OVARY 1996 uterine prolapse, hyst. bilateral oophorectomy VITRECTOMY MECHANICAL PARS PLANA Left Social History Tobacco Use Smoking status: Former Current packs/day: 0.00 Average packs/day: 0.5 packs/day for 10.0 years (5.0 ttl pk-yrs) Types: Cigarettes Start date: 05/14/1955 Quit date: 05/14/1965 Years since quittin.1 Passive exposure: Past Smokeless tobacco: Never Vaping Use Vaping status: Never Used Substance Use Topics Alcohol use: Yes Comment: 1/2 glass of wine twice per month Drug use: No family history includes Arthritis in her mother; Cancer in her father and mother; Kidney Disease inher mother. Review of systems as noted, reviewed, and documented on intake section. Physical Exam: There were no vitals filed for this visit. General: no acute distress. Awake, alert. Cardiopulmonary: unlabored breathing. Appears well perfused Abdomen: non-distended, Lower Extremities: no edema, no calf tenderness. Skin: Visualized areas are warm, dry, no jaundice UE SAB EF EE WE WF Cassandra Consultant R /5 5/5 5/5 5/5 5/5 5/5 L 5/5 5/5 5/5 5/5 5/5 5/ LE HF KF KE PF DF R / 5/5 5/5 5/5 5/5 L 5/5 5/5 5/5 5/01/09 During our face to face clinical encounter we discussed my concerns neurologically in terms of diagnosis, impact on health and activities of living, and addressed questions. I tried to reassure the patient and also address questions. I explained to the patient to call if any questions, to review res ults, and follow-up as instructed or as needed. Patient verbalizes understanding and I have addressed concerns and questions at this visit Patient has my contacts, educational material provided, and my chart sign up. After visit summary discussed. I spent a total of 20 minutes on the date of the service which included preparing to see the patient, [id number] patient care, completing clinical documentation, performing a medically appropriate examination, counseling and educating the patient/family/caregiver, ordering medications, tests, or p rocedures and communicating results to the patient/family/caregiver. LAW Kebede.MICROBIOLOGICAL LABORATORY TECHNICIAN [facility] documented in this encounterK[facility]10-[facility]24 Telephone encounter Note * Telephone Encounter - Jayde Bautista LPN - 06/24/2024 11:15 AM EDT Please see attached sleep study results- Scan on 06/24/2024 10:56 AM by Provider, External, PAJuan CarlosC: PSG [facility] 06/21/24 Jayde Bautista LPN [facility]09-30-2024 Telephone encounter Note* Telephone Encounter - Saida Flores MA - 06/06/2024 12:20 PM EDT Prescription Refill Information The patient has been identified by name and date of : Yes Caregiver verified no other encounters exist for this prescription request: Yes Caregiver confirmed with patient/requestor that no other refills are due, in the near future, with this provider at this time: Yes The last office visit in the department: 05/27/2024 Does the patient have a future office visit with this provider/department: Yes Requested Prescriptions Pending Prescriptions Disp Refills LORazepam (ATIVAN) 2 mg tab 30 tablet 2 Sig: Take 1 tablet by mouth daily at bedtime for 90 days. Saida Flores MA June 06, 2024 12:20 PM [facility]09-30-2024 Miscellaneous Notes* Telephone Encounter - Saida Flores MA - 06/06/2024 12:20 PM EDT Prescription Refill Information The patient has been identified by name and date of : Yes Caregiver verified no other encounters exist for this prescription request: Yes Caregiver confirmed with patient/requestor that no other refills are due, in the near future, with this provider at this time: Yes The last office visit in the department: 05/27/2024 Does the patient have a future office visit with this provider/department: Yes Requested Prescriptions Pending Prescriptions Disp Refills LORazepam (ATIVAN) 2 mg tab 30 tablet 2 Sig: Take 1 tablet by mouth daily at bedtime for 90 days. Saida Flores MA June 06, 2024 12:20 PM documented in this encounterK[facility]09-30-2024 Telephone encounter Note * Telephone Encounter - Laurence Torres LPN - 06/06/2024 10:07 AM EDT Pt called in and has not heard anything regarding testing to be done at [facility] for a Polysomnogram. I have re-faxed orders, face sheet and supporting information to [phone]. I have asked the department to call pt to schedule. Pt aware if she does not hear from [facility] to call the department to schedule procedure. Referral has been place. Laurence Torres LPN [facility]09-30-2024 Miscellaneous Notes* Telephone Encounter - Laurence Torres LPN - 06/06/2024 10:07 AM EDT Pt called in and has not heard anything regarding testing to be done at [facility] for a Polysomnogram. I have re-faxed orders, face sheet and supporting information to [phone]. I have asked the department to call pt to schedule. Pt aware if she does not hear from [facility] to call the department to schedule procedure. Referral has been place. Laurence Torres LPN documented in this encounterKet[facility]09-25-2024 Telephone encounter Note * Telephone Encounter - Jose Baron MA - 06/01/2024 9:30 AM EDT Received last office note request from [facility]. [facility] notes faxed and confirmationreceived [facility] Miscellaneous Notes* Telephone Encounter - Jose Baron MA - 06/01/2024 9:30 AM EDT Received last office note request from [facility]. [facility] notes faxed and confirmationreceived documented in this encounterKettering [facility]09-20-2024 Nurse Note* Ana Frye MA - 05/27/2024 10:10 AM EDT Per PCP EKG and Echo faxed to Dr. Miller's office with [facility] at [phone]. Ana Frye MA [facility]09-20-2024 Nurse Note* Ana Frye MA - 05/27/2024 10:10 AM EDT Per PCP EKG and Echo faxed to Dr. Miller's office with [facility] at [phone]. Ana Frye MA documented in this encounterKettering [facility]09-20-2024 History of Present illness Narrative* Bria Solorio RT(R) - 05/27/2024 9:10 AM EDT Radiology Service Progress Note PATIENT NAME: Geoffrey Nassar DATE OF SERVICE: May 27, 2024 TIME: 9:04 AM PATIENT IDENTITY VERIFICATION COMPLETED USING TWO (2) IDENTIFIERS: Name and Date of confirmedby patient verbally. FALL SCREENING: Has the patient had 2 falls in the last year or 1 fall with injury or currently using an Ambulatory Assistive Device (Walker, Cane, Wheelchair, Crutches, etc.)? Yes, Patient High Riskfor Falls What interventions were put in place to prevent falls during this visit? Offered Assistance with Transfers/Clothing and Instructed Patient to Remain Seated (Not on Exam Table) Until Exam PATIENT GENDER DATA: Female. status: : No status: NO. PATIENT RELEVANT IMPLANT DATA REVIEWED: Not Applicable PATIENT PRESENTS WITH AN IMPLANTABLE OR ATTACHED CRUMB PACKER: No RADIOLOGY DEPARTMENT: General X-ray: Exam(s) Completed: Chest X-Ray PERIPHERAL IV DATA: Not applicable SIGNED BY: RT Luz Marina(R) May 27, 2024 9:04 AM documented in this encounterKet[facility]09-20-2024 [facility] History of Present illness Narrative* Ken Contreras MD - 05/27/2024 8:24 AM EDT This note was created using MRI Interventionsriter. Subjective Patient presents with: Follow Up: From PT Geoffrey Nassar is a 89 year old female. She started physical therapy due to a fall with head injuryand SAH in September 2023. At her neurosurgery follow up in January, she was encouraged to do PT and OT and she started therapy last month. She expressed dyspnea on exertion recently at her session, and PTdocumented desaturation down to 87% with exertion. She was sent here for evaluation. She has known asthma and bronchiectasis followed by [facility]. She was on an annual follow up basis as of February this year. Dyspnea was unchanged. Recently, she was evaluated for nocturnal hypoxia in an in home sleep study. EKG and echo was notable for mild diastolic dysfunction and mild pulmonary hypertension. She was waiting for an in lab sleep study. Review of Systems Constitutional: Positive for fatigue. Negative for chills, diaphoresis and fever. HENT: Negative for congestion and sore throat. Respiratory: Positive for shortness of breath. Negative for cough, chest tightness and wheezing. Cardiovascular: Negative for chest pain, palpitations and leg swelling. Neurological: Negative for dizziness and headaches. 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 Pacemaker Punctate Keratitis, 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, Mild Stage Allergic Conjunctivitis of Both Eyes Recurrent Uti Asthmatic Bronchitis , Chronic (Hcc) Stage 3 Chronic Kidney Disease, Unspecified Whether Stage 3a Or 3b Ckd (Hcc) Subarachnoid Hemorrhage (Hcc) Physical Debility Social History Tobacco Use Smoking status: Former Current packs/day: 0.00 Average packs/day: 0.5 packs/day for 10.0 years (5.0 ttl pk-yrs) Types: Cigarettes Start date: 05/14/1955 Quit date: 05/14/1965 Years since quittin.0 Passive exposure: Past Smokeless tobacco: Never Vaping Use Vaping status: Never Used Substance Use Topics Alcohol use: Yes Comment: 1/2 glass of wine twice per month Drug use: No Current Outpatient Medications Medication Sig fluconazole (DIFLUCAN) 150 mg tablet Take 150 mg by mouth one time only. BREO ELLIPTA 100-25 mcg/dose inhaler Inhale 1 Inhalation as instructed once daily. baclofen 5 mg tablet Take 1 tablet by mouth two times a day. ergocalciferol 50,000 unit capsule (VITAMIN D2, DRISDOL) Take 1 capsule by mouth every 4 weeks. LORazepam (ATIVAN) 2 mg tab Take 1 tablet by mouth daily at bedtime for 90 days. levothyroxine (SYNTHROID) 88 mcg tablet Take 1 tablet by mouth five times a week. Mondays thru Fridays. None on Saturdays and Sundays. meloxicam (MOBIC) 15 mg tablet Take 1 tablet by mouth once daily. pantoprazole DR (PROTONIX) 20 mg tablet Take 2 tablets by mouth once daily. PARoxetine (PAXIL) 40 mg tablet Take 1 tablet by mouth once daily. amLODIPine (NORVASC) 5 mg tablet Take 1 tablet by mouth once daily. lisinopril (ZESTRIL) 40 mg tablet Take 1 tablet by mouth once daily. lamoTRIgine (LAMICTAL) 25 mg tablet Take 1 tablet by mouth once daily. aspirin, enteric coated (ASPIRIN, ENTERIC COATED) 81 mg EC tablet Take 1 tablet by mouth once daily. acetaminophen (TYLENOL) 500 mg tablet Take 2 tablets by mouth every 8 hours as needed for pain. vibegron (GEMTESA) 75 mg tablet Take 1 tablet by mouth once daily. Prescribed by Dr. Hansen brimonidine-timolol (COMBIGAN) 0.2-0.5 % ophthalmic solution Use 1 Drop in the left eye twice daily. latanoprost (XALATAN) 0.005 % ophthalmic solution Use 1 Drop in both eyes daily at bedtime. vit C/E/zinc ox/trevor/lut/zeax (ICAPS AREDS2 ORAL) loratadine (CLARITIN REDITABS) 10 mg dissolvable tablet Take 1 tablet by mouth once daily as needed(allergies). DULCOLAX, BISACODYL, ORAL Take 1 tablet by mouth as needed. polyethylene glycol 3350 (MIRALAX, GLYCOLAX) 17 gram/dose powder Drink a mix of 1 scoop in 8oz of water/beverage once daily as needed for constipation. cyanocobalamin (VITAMIN B-12) 1,000 mcg tab Take 1,000 mcg by mouth once daily. albuterol HFA (VENTOLIN HFA) 90 mcg/actuation inhaler Inhale 2 Puffs as instructed every 4 hours asneeded for Wheezing/Shortness of Breath. MULTIVITAMIN TAB Take one(1) tablet daily. No current facility-administered medications for this visit. Objective BP 130/80 Pulse 64 Resp 18 Wt 76.4 kg (168 lb 6.9 oz) BMI 30.81 kg/m Physical Exam Constitutional: Appearance: She is not ill-appearing or diaphoretic. Eyes: Conjunctiva/sclera: Conjunctivae normal. Cardiovascular: Rate and Rhythm: Normal rate and regular rhythm. Heart sounds: No murmur heard. No gallop. Pulmonary: Effort: No respiratory distress. Breath sounds: No wheezing, rhonchi or rales. Musculoskeletal: Right lower leg: No edema. Left lower leg: No edema. Neurological: General: No focal deficit present. Comments: Ambulatory with cane. Assessment and Plan 1. Oxygen desaturation - ICD9: 799.02, ICD10: R09.02 (primary diagnosis) - She did not qualify for oxygen on testing today. She was advised to schedule a follow up with herpulmonary specialist. Recent tests will be forwarded. - XR CHEST 2V FRONTAL/LAT - COMPLETE BLOOD COUNT - BASIC METABOLIC PANEL 2. Encounter for immunization - ICD9: V03.89, ICD10: Z23 - INFLUENZA VACCINE, PRSV FREE, AGE 65+ YR, HIGH DOSE, TRIVALENT (FLUZONE HIGH-DOSE) 3. Asthmatic bronchitis , chronic (HCC) - ICD9: 493.20, ICD10: J44.89 Stable. - Continue current medications 4. Bronchiectasis without complication (HCC) - ICD9: 494.0, ICD10: J47.9 Stable. - See #1. 5. Nocturnal hypoxemia - ICD9: 327.24, ICD10: G47.34 - For in lab sleep study. - COMPLETE BLOOD COUNT 6. Dyspnea, unspecified type - ICD9: 786.09, ICD10: R06.00 - NT PRO BNP Ken Contreras MD documented in this encounterK[facility]09-19-2024 NoteWay[facility]09-19-2024 History of Present illness Narrative* Jackie Lainez, PT - 05/26/2024 4:39 PM EDT Episode Visit Count: 5 Therapist That Will Accept/Oversee The Plan Of Care: Jackie Lainez Start of Care Date: 04/26/24 Onset Date: 09/07/23 Plan of Care Certification Date: 04/26/24 Next Certification Due Date: 06/26/24 REHABILITATION AND SPORTS THERAPY PHYSICAL THERAPY TREATMENT NOTE ASSESSMENT: Geoffrey Nassar tolerated the session with shortness of breath. She demonstrated difficulty with exercise tolerance a decreasing SpO2%. The patient will continue to benefit from withholding of physical therapy while more extensive cardiopulmonary testing is performed to determine why herSpO2% is dropping so sharply on her. PLAN FOR NEXT VISIT: [place] SUBJECTIVE: Patient notes twice this week she has felt SOB and felt it was hard to take a deep breath. Had an cardioechogram today. In general she has had many episodes of SOB, feeling winded, and feeling more tired in general Pain: Pain Pain Level: 5 Pain Location: Thigh - Left Description: Sore Frequency: Continuous OBJECTIVE MEASURES WITH LEVEL OF FUNCTION: Vitals BP: 116/67 Pulse: 60 SpO2: 92 % Pre SpO2: 92 Intra SpO2 1: 87 Intra SpO2 2: 90 Post SpO2: 92 TREATMENT: Therapeutic Exercise: 1: Sci[employer] 3x2 min bouts seat at 12 (vitals taken throughout and specifically monitored SpO2% response to exercise) Skilled Intervention: Patient was educated in proper exercise technique and purpose for exercises. Skilled judgment was used in selection of appropriate interventions. Self-Half-Way Management: 1: Long discussion with patient about therapy plan of care and justification of that plan. Answeredall patients questions Skilled Intervention: Activity progression based on professional judgement. Billing Therapeutic Exercise Treatment Minutes: 10 Self-Care/Home Management Treatment Minutes: 20 Skilled Treatment Time Minutes (timed and untimed codes): 30 Total Session Time (minutes): 30 Session Start Time : 1545 Session Stop Time : 1615 Jackie Lainez PT documented in this encounterK[facility]09-18-2024 Telephone encounter Note * Telephone Encounter - Jayde Bautista LPN - 05/25/2024 4:18 PM EDT Orders for PSG faxed to [facility] per request. Jayde Bautista LPN [facility]09-18-2024 Miscellaneous Notes* Telephone Encounter - Jayde Bautista LPN - 05/25/2024 4:18 PM EDT Orders for PSG faxed to [facility] per request. Jayde Bautista LPN * Telephone Encounter - Pat Domínguez - 05/25/2024 4:07 PM EDT Pt would like PSG done at [facility]. Please fax order. Thank you documented in this encounterKet[facility]09-18-2024 Telephone encounter Note * Telephone Encounter - Pat Domínguez - 05/25/2024 4:07 PM EDT Pt would like PSG done at [facility]. Please fax order. Thank you [facility]09-13-2024 [facility]Way[facility]09-13-2024 History of Present illness Narrative* Dave Padilla, PT - 05/20/2024 11:02 AM EDT Episode Visit Count: 4 Therapist That Will Accept/Oversee The Plan Of Care: Jackie Lainez Start of Care Date: 04/26/24 Onset Date: 09/07/23 Plan of Care Certification Date: 04/26/24 Next Certification Due Date: 06/26/24 Patient Identified by Name and Date of : Yes REHABILITATION AND SPORTS THERAPY PHYSICAL THERAPY TREATMENT NOTE ASSESSMENT: Geoffrey Nassar tolerated the session with decreased activity tolerance due to pt feeling SOB and Sp02 dropping with exercises, fatigue, and expected muscle soreness. She demonstrated improvements in balancing on non- compliant surfaces. The patient will continue to benefit from ongoing skilled physical therapy to progress toward set goals. PLAN FOR NEXT VISIT: Continue challenging balance and monitoring Sp02 throughout session. SUBJECTIVE: Pt reports that she is feeling good today, but is tired. Pt states that she is not getting enough oxygen at night and feels wiped out through the day. Orders are in for a sleep study, butit has not been scheduled yet. Pt states the past 2 days she has been stuggling more with feeling too tired and winded. Pt states she could not set the dinner table last night and she had to go lay down and felt very achy in her chest on the L side around her L breast and into the side, kept pressing on her side to try to get some relief. Pain: Pain Pain Level: 0 OBJECTIVE MEASURES WITH LEVEL OF FUNCTION: Vitals SpO2: 89 % (at start of session, recovered to 98 after 2 minutes) Pre Assessment: SpO2 Pre SpO2: 91 (after 2 static standing balance exercises) Intra Assessment 1: SpO2 Intra 1 Intra SpO2 1: 87 (after 2 standing static balance exercsies) Intra Assessment 2: SpO2 Intra 2 Intra SpO2 2: 95 (after 2 seated exercises) Post Assessment: SpO2 Post Post SpO2: 97 TREATMENT: Therapeutic Exercise: 1: LAQ x10 B 2: Seated alt LE marching x 10 B Skilled Intervention: Patient was educated in proper exercise technique and purpose for exercises. Skilled judgment was used in selection of appropriate interventions. Correct performance of therapeutic exercises was facilitated with verbal and visual cuing. Neuromuscular Re-Education: 1: NBOS EO x 30 seconds 2: NBOS on foam pad 2x30 seconds, EO 3: NBOS EC 2x30 seconds 4: Rocker board side to side x 15 each side without UE use on // bars Skilled Intervention: Skilled judgment used to assess appropriate program for balance and coordination activity. Ensured patient safety with use of gait belt. Self-Half-Way Management: 1: Education on symptoms to watch for with chest symptoms and if she is becoming more SOB, more frequently and to seek medical care if these things happen. Skilled Intervention: Skilled judgment in the selection of proper modification for activity of daily living/home management based on clinical presentation, deficits, and needs. Reviewed patient specific diagnosis in relation to activities of daily living/home management. Activity progression based on professional judgement. Billing Therapeutic Exercise Treatment Minutes: 8 Neuromuscular Re-Education Treatment Minutes: 22 Self-Care/Home Management Treatment Minutes: 10 Skilled Treatment Time Minutes (timed and untimed codes): 40 Total Session Time (minutes): 40 Session Start Time : 1100 Session Stop Time : 1140 Kaela Brasher, DIONI Padilla PT documented in [facility] Telephone encounter Note * Telephone Encounter - Jayde Bautista LPN - 05/16/2024 4:57 PM EDT Pt is agreeable, please place order. Jayde Bautista LPN [facility]09-09-[facility]24 Miscellaneous Notes* Telephone Encounter - Jayde Bautista LPN - 05/16/2024 4:57 PM EDT Pt is agreeable, please place order. Jayde Bautista LPN * Telephone Encounter - Kaya Cartwright Jr., MD - 05/16/2024 11:37 AM EDT I would recommend an in lab study to better evaluate. If pt willing, will place order. Kaya Cartwright MD * Telephone Encounter - Jayde Bautista LPN - 05/16/2024 10:37 AM EDT TC to pt who voiced understanding with seeing Pulm at the hospital. If it is recommended to do an in lab study, pt is agreeable. Jayde Bautista LPN * Telephone Encounter - Jayde Bautista LPN - 05/16/2024 8:48 AM EDT ----- Message from Kaya Cartwright MD sent at 05/13/2024 6:21 PM EDT ----- Patient with hypoxia at night. Patient not wanting in lab sleep study. For hypoxia recommend followup with pulmonary - previously seen by Dr. Reynold Miller at [facility]. Kaya Cartwright MD documented in this encounterK[facility]-2024 Telephone encounter Note * Telephone Encounter - Kaya Cartwright Jr., MD - 05/16/2024 11:37 AM EDT I would recommend an in lab study to better evaluate. If pt willing, will place order. Kaya Cartwright MD [facility]09-[facility]24 [facility] History of Present illness Narrative* Rhoda Alcazar MD - 05/16/2024 11:27 AM EDT OTOLARYNGOLOGY-HEAD AND NECK SURGERY CC: Geoffrey Nassar is a 89 year old female who is seen at the request of Dia Lopez APRN.CNP for evaluation of throat pain. My findings and recommendations will be communicated to the referringprovider via the shared electronic medical record. Assessment: Sore throat (primary encounter diagnosis) History of oral lesions Plan: - Discussed that there are no visible abnormalities on her examination - Discussed that these could have been viral in origin - Follow up with me as needed Rhoda Alcazar MD HPI: Ms. Nassar is an 89 y/o F who presents for lesions in her mouth and sore throat. Symptoms started 3 days ago. She woke up with white spots in her mouth and she gargled salt water. She reports resolution of spots over the next day. She did have some burning in her throat when she was drinking. ALLERGIES Allergen Reactions Shellfish Containin* Unknown Penicillamine Unknown Benadryl [Diphenhyd* Rash Cats Cipro [Ciprofloxaci* Itching Dust Ketamine Unknown Mold Penicillins Rash Shellfish Shortness of Breath Spiriva With Handih* Intolerance not help Sulfa (Sulfonamide * GI Upset Symbicort [Budesoni* Intolerance tremor,shaky Tetanus Toxoid Adso* Intolerance arm swell Current Outpatient Medications Medication Sig cephALEXin (KEFLEX) 250 mg capsule Take 250 mg by mouth once daily. BREO ELLIPTA 100-25 mcg/dose inhaler Inhale 1 Inhalation as instructed once daily. baclofen 5 mg tablet Take 1 tablet by mouth two times a day. ergocalciferol 50,000 unit capsule (VITAMIN D2, DRISDOL) Take 1 capsule by mouth every 4 weeks. LORazepam (ATIVAN) 2 mg tab Take 1 tablet by mouth daily at bedtime for 90 days. levothyroxine (SYNTHROID) 88 mcg tablet Take 1 tablet by mouth five times a week. Mondays thru Fridays. None on Saturdays and Sundays. meloxicam (MOBIC) 15 mg tablet Take 1 tablet by mouth once daily. pantoprazole DR (PROTONIX) 20 mg tablet Take 2 tablets by mouth once daily. PARoxetine (PAXIL) 40 mg tablet Take 1 tablet by mouth once daily. amLODIPine (NORVASC) 5 mg tablet Take 1 tablet by mouth once daily. lisinopril (ZESTRIL) 40 mg tablet Take 1 tablet by mouth once daily. lamoTRIgine (LAMICTAL) 25 mg tablet Take 1 tablet by mouth once daily. aspirin, enteric coated (ASPIRIN, ENTERIC COATED) 81 mg EC tablet Take 1 tablet by mouth once daily. acetaminophen (TYLENOL) 500 mg tablet Take 2 tablets by mouth every 8 hours as needed for pain. vibegron (GEMTESA) 75 mg tablet Take 1 tablet by mouth once daily. Prescribed by Dr. Hansen brimonidine-timolol (COMBIGAN) 0.2-0.5 % ophthalmic solution Use 1 Drop in the left eye twice daily. latanoprost (XALATAN) 0.005 % ophthalmic solution Use 1 Drop in both eyes daily at bedtime. vit C/E/zinc ox/trevor/lut/zeax (ICAPS AREDS2 ORAL) loratadine (CLARITIN REDITABS) 10 mg dissolvable tablet Take 1 tablet by mouth once daily as needed(allergies). DULCOLAX, BISACODYL, ORAL Take 1 tablet by mouth as needed. polyethylene glycol 3350 (MIRALAX, GLYCOLAX) 17 gram/dose powder Drink a mix of 1 scoop in 8oz of water/beverage once daily as needed for constipation. cyanocobalamin (VITAMIN B-12) 1,000 mcg tab Take 1,000 mcg by mouth once daily. albuterol HFA (VENTOLIN HFA) 90 mcg/actuation inhaler Inhale 2 Puffs as instructed every 4 hours asneeded for Wheezing/Shortness of Breath. MULTIVITAMIN TAB Take one(1) tablet daily. No current facility-administered medications for this visit. PAST MEDICAL HISTORY 01/18/2021: Bradycardia 11/27/2009: Bronchiectasis without complication (HCC) Comment: Dr. Jaswant Miller, pulmonary. 02/16/2012: DDD (degenerative disc disease), lumbar 03/17/2005: Depression (emotion) 03/17/2005: Depressive disorder w/ seasonal affective disorder No date: Diverticulosis of small intestine (without mention of hemorrhage) 07/08/2011: Enthesopathy of hip region 05/25/2008: Essential hypertension 01/29/2006: Extrinsic asthma 10/03/2023: Fall No date: Family history of malignant neoplasm of gastrointestinal tract Comment: liver cancer 01/30/2012: Foraminal stenosis of cervical region 01/29/2017: Gait disturbance 05/13/2013: Gastroesophageal reflux disease with esophagitis 12/19/2005: HERNIA UMBILICAL 03/17/2005: Hypothyroidism 09/23/2016: Irritable bowel syndrome with both constipation and diarrhea 11/19/2016: Non-STEMI (non-ST elevated myocardial infarction) (HCC) Comment: setting of acute bilateral pulmonary embolism. 10/29/2020: Oral murray 07/25/2021: Pacemaker 11/24/2016: Pulmonary embolism with acute cor pulmonale (HCC) Comment: She was initially thought to have a NSTEMI, but was found to be a PE with Right Strain and NOT a NSTEMI. 01/08/2017: Pulmonary nodule 10/03/2023: SAH (subarachnoid hemorrhage) (HCC) 12/29/2017: Tubular adenoma of colon PAST SURGICAL HISTORY 1998: CHOLECYSTECTOMY 12/18/2005: COLONOSCOPY FLX DX W/COLLJ SPEC WHEN PFRMD 09/17/2011: COLONOSCOPY FLX DX W/COLLJ SPEC WHEN PFRMD 11/30/2017: COLONOSCOPY FLX DX W/COLLJ SPEC WHEN PFRMD Comment: Colonoscopy - adenomatous polyp-5 year follow-up 05/29/2017: EGD No date: LASER IRIDOPLASTY OS (LEFT EYE); Left No date: LASER IRIDOTOMY OD (RIGHT EYE); Right 05/29/2021: PACEMAKER INSERTSION Comment: dual lead 09/2007: PAST SURGICAL HISTORY OF Comment: jacinto eyelid removal dropping skin 11/24/2011: PAST SURGICAL HISTORY OF; Bilateral Comment: cataract removal 11/19/11, 11/24/112004: SLING OPER STRES INCONTINENCE 1956: TONSILLECTOMY HX 1996: VAG HYST 250 GM/< W/RMVL TUBE&/OVARY Comment: uterine prolapse, hyst. bilateral oophorectomy No date: VITRECTOMY MECHANICAL PARS PLANA; Left Social History: Social History Tobacco Use Smoking status: Former Current packs/day: 0.00 Average packs/day: 0.5 packs/day for 10.0 years (5.0 ttl pk-yrs) Types: Cigarettes Start date: 05/14/1955 Quit date: 05/14/1965 Years since quittin.0 Passive exposure: Past Smokeless tobacco: Never Vaping Use Vaping status: Never Used Substance Use Topics Alcohol use: Yes Comment: 1/2 glass of wine twice per month Drug use: No FAMILY HISTORY Problem Relation Age of Onset Cancer Mother Arthritis Mother Kidney Disease Mother Cancer Father lung ROS: GENERAL: No weight loss, malaise or fevers. HEENT: See HPI NECK: Negative for lumps, goiter, pain and significant neck swelling RESPIRATORY: Negative for cough, hemoptysis, wheezing or shortness of breath CARDIOVASCULAR: Negative for chest pain, leg swelling or palpitations. GASTROINTESTINAL: No nausea, vomiting, or diarrhea MUSCULOSKELETAL: Negative for joint pain or swelling, back pain or muscle pain. NEUROLOGIC: Negative for focal numbness or weakness, headaches and dizziness or syncope. SKIN: Negative for lesions, rash, and itching. HEMATOLOGIC/LYMPHATIC/IMMUNOLOGIC: Negative for prolonged bleeding, bruising easily or swollen nodes. ENDOCRINE: Negative for cold or heat intolerance, polyuria, polydipsia and goiter. PHYSICAL EXAM: On physical examination Geoffrey Nassar is a well-developed, well nourished female. Her speech is normal and her voice is strong. Mental status revealed patient to be alert and oriented. Mood is appropriate. Details of the physical examination: HEAD AND FACE: Physical examination of the head, neck, external nose, external ears, mouth and facefails to demonstrate any significant abnormality or asymmetry to critical face to face observation.Skin and scalp are normal. EARS: RT Canal: patent RT Drum: intact RT Pneumotoscopy: mobile LT Canal: patent LT Drum: intact LT Pneumotoscopy: mobile NOSE: Examination of the nasal cavity revealed a septum which is normal. The mucosa is pink, and the visible turbinates are normal on anterior rhinoscopy. There is no purulence or polyps. MASTICATION: The lips and gums are without lesions. ORAL CAVITY AND OROPHARYNX: The oral mucosa, hard and soft palates, tongue, tonsil area, and posterior pharyngeal wall are without lesions. No lesions, no erythema. NECK: The neck appears symmetric without scars. On palpation, there are no masses or lymphadenopathy. The thyroid is not palpable and was free of masses. No salivary gland masses or hypertrophy is noted. Rhoda Alcazar MD documented in this encounterK[facility]09-[facility]-2024 Telephone encounter Note * Telephone Encounter - Jayde Bautista LPN - 05/16/2024 10:37 AM EDT TC to pt who voiced understanding with seeing Pulm at the hospital. If it is recommended to do an in lab study, pt is agreeable. Jayde Bautista LPN [facility]09-09-2024 Telephone encounter Note* Telephone Encounter - Jayde Bautista LPN - 05/16/2024 8:48 AM EDT ----- Message from Kaya Cartwright MD sent at 05/13/2024 6:21 PM EDT ----- Patient with hypoxia at night. Patient not wanting in lab sleep study. For hypoxia recommend followup with pulmonary - previously seen by Dr. Reynold Miller at [facility]. Kaya Cartwright MD [facility]09-06-2024 Telephone encounter Note* Telephone Encounter - Adelaida Almendarez LPN - 05/13/2024 3:22 PM EDT Phoned patient aware referral is in computer. Assisted with transfer to pharmacist manager to get ENT appt set up hopefully in [place]. [facility]24 Miscellaneous Notes* Telephone Encounter - Adelaida Almendarez LPN - 05/13/2024 3:22 PM EDT Phoned patient aware referral is in computer. Assisted with transfer to pharmacist manager to get ENT appt set up hopefully in [place]. * Telephone Encounter - Faby Sears RN - 05/13/2024 2:00 PM EDT Patient calls and is asking if provider can place an ENT referral. Patient would like to see if shecan get into [facility]. Patient can't get into [facility] until end of month and patientstates that she needs to be seen sooner than that. Please review and advise, Faby Sears RN documented in this encounterK[facility]09-06-2024 Telephone encounter Note * Telephone Encounter - Dia Lopez APRN.CNP - 05/13/2024 2:18 PM EDT Addressed at office visit today Dia Lopez APRN.MICROBIOLOGICAL LABORATORY TECHNICIAN [facility]09-06-2024 Miscellaneous Notes* Telephone Encounter - Dia Lopez APRN.CNP - 05/13/2024 2:18 PM EDT Addressed at office visit today Dia Lopez APRN.CNP documented in this encounterK[facility]09-06-2024 Telephone encounter Note * Telephone Encounter - Faby Sears RN - 05/13/2024 2:00 PM EDT Patient calls and is asking if provider can place an ENT referral. Patient would like to see if shecan get into [facility]. Patient can't get into [facility] until end of month and patientstates that she needs to be seen sooner than that. Please review and advise, Faby Sears RN [facility]09-06-2024 History of Present illness Narrative* Dia Lopez APRN.CNP - 05/13/2024 9:40 AM EDT CC: Patient presents with: Evaluate for hypoxia per HSAT HPI Geoffrey Nassar is a 89 year old female who presents today for above. She had home sleep study ordered by Dr. Cartwright to evaluate for hypersomnia and EDS. Study revealed hypoxia, even in the absence of respiratory events, with mean oxygen saturation of 87%. In lab study recommended along with clinical correlation for possible underlying cardiac or pulmonary disorder. Findings neither disputed nor confirmed JADIEL. PMH: asthma, bronchiectasis, Pacemaker, SSS, PE, non-STEMI Counter Maker- [facility]. Last appointment 02/11/24. Last Pacemaker check 12/25/23. Cardiac testing- carotid ultrasound 02/25 without significant stenosis; echocardiogram 10/03 EF normal, no significant valvular or structural abnormalities; stress test 01/09/21 without acute findings. Last EKG 05/01/21-sinus bradycardia, borderline EKG Bundler- Dr. 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 Last appointment 02/26/24. No change in medications, Breo Ellipta continued. Last PFT's 05/28/19-irreversible mild large airway obstructive ventilatory defect with preserved lung volumes and diffusing capacity. CT chest 10/02/23- mild patchy opacity right lower lung compatible with known bronchiectasis, mucous plugging and tree in bud opacities. She has chronic SOB with exertion, no worsening. She reports coughing more than usual the past two months, typically first thing in the morning or when waking up from a nap in the afternoon. Cough isnon-productive but loose. She has seasonal allergies and GERD, both are treated with medications and well controlled. She reports chest pain intermittently for the past two months. Occurring when shelays in bed at night. Located left anterior chest. Described as pressure. Does not radiate. She denies palpitations, edema, weight gain, PND, orthopnea. Review of Systems Constitutional: Positive for fatigue. Negative for chills, diaphoresis, fever and unexpected weightchange. HENT: Positive for postnasal drip and sore throat. Negative for congestion, rhinorrhea and trouble swallowing. Neurological: Negative for dizziness, syncope, weakness and light-headedness. PAST MEDICAL HISTORY 01/18/2021: Bradycardia 11/27/2009: Bronchiectasis without complication (HCC) Comment: Dr. Jaswant Miller, pulmonary. 02/16/2012: DDD (degenerative disc disease), lumbar 03/17/2005: Depression (emotion) 03/17/2005: Depressive disorder w/ seasonal affective disorder No date: Diverticulosis of small intestine (without mention of hemorrhage) 07/08/2011: Enthesopathy of hip region 05/25/2008: Essential hypertension 01/29/2006: Extrinsic asthma 10/03/2023: Fall No date: Family history of malignant neoplasm of gastrointestinal tract Comment: liver cancer 01/30/2012: Foraminal stenosis of cervical region 01/29/2017: Gait disturbance 05/13/2013: Gastroesophageal reflux disease with esophagitis 12/19/2005: HERNIA UMBILICAL 03/17/2005: Hypothyroidism 09/23/2016: Irritable bowel syndrome with both constipation and diarrhea 11/19/2016: Non-STEMI (non-ST elevated myocardial infarction) ([facility]) Comment: setting of acute bilateral pulmonary embolism. 10/29/2020: Oral murray 07/25/2021: Pacemaker 11/24/2016: Pulmonary embolism with acute cor pulmonale ([facility]) Comment: She was initially thought to have a NSTEMI, but was found to be a PE with Right Strain and NOT a NSTEMI. 01/08/2017: Pulmonary nodule 10/03/2023: SAH (subarachnoid hemorrhage) ([facility]) 12/29/2017: Tubular adenoma of colon PAST SURGICAL HISTORY 1999: CHOLECYSTECTOMY 12/18/2005: COLONOSCOPY FLX DX W/COLLJ SPEC WHEN PFRMD 09/17/2011: COLONOSCOPY FLX DX W/COLLJ SPEC WHEN PFRMD 11/30/2017: COLONOSCOPY FLX DX W/COLLJ SPEC WHEN PFRMD Comment: Colonoscopy - adenomatous polyp-5 year follow-up 05/29/2017: EGD No date: LASER IRIDOPLASTY OS (LEFT EYE); Left No date: LASER IRIDOTOMY OD (RIGHT EYE); Right 05/29/2021: PACEMAKER INSERTSION Comment: dual lead 09/2007: PAST SURGICAL HISTORY OF Comment: jacinto eyelid removal dropping skin 11/24/2011: PAST SURGICAL HISTORY OF; Bilateral Comment: cataract removal 11/19/11, 11/24/112004: SLING OPER STRES INCONTINENCE 7: TONSILLECTOMY HX 1996: VAG HYST 250 GM/< W/RMVL TUBE&/OVARY Comment: uterine prolapse, hyst. bilateral oophorectomy No date: VITRECTOMY MECHANICAL PARS PLANA; Left ALLERGIES Shellfish Containing Products, Penicillamine, Benadryl [Diphenhydramine Hcl], Cats, Cipro[Ciprofloxacin], Dust, Ketamine, Mold, Penicillins, Shellfish, Spiriva With Handihaler [Tiotropium [place]], Sulfa (Sulfonamide Antibiotics), Symbicort [Budesonide-Formoterol], and Tetanus Toxoid Adsorbed MEDICATIONS baclofen 5 mg tablet Take 1 tablet by mouth two times a day. ergocalciferol 50,000 unit capsule (VITAMIN D2, DRISDOL) Take 1 capsule by mouth every 4 weeks. LORazepam (ATIVAN) 2 mg tab Take 1 tablet by mouth daily at bedtime for 90 days. levothyroxine (SYNTHROID) 88 mcg tablet Take 1 tablet by mouth five times a week. Mondays thru Fridays. None on Saturdays and Sundays. meloxicam (MOBIC) 15 mg tablet Take 1 tablet by mouth once daily. pantoprazole DR (PROTONIX) 20 mg tablet Take 2 tablets by mouth once daily. PARoxetine (PAXIL) 40 mg tablet Take 1 tablet by mouth once daily. amLODIPine (NORVASC) 5 mg tablet Take 1 tablet by mouth once daily. lisinopril (ZESTRIL) 40 mg tablet Take 1 tablet by mouth once daily. lamoTRIgine (LAMICTAL) 25 mg tablet Take 1 tablet by mouth once daily. aspirin, enteric coated (ASPIRIN, ENTERIC COATED) 81 mg EC tablet Take 1 tablet by mouth once daily. acetaminophen (TYLENOL) 500 mg tablet Take 2 tablets by mouth every 8 hours as needed for pain. vibegron (GEMTESA) 75 mg tablet Take 1 tablet by mouth once daily. Prescribed by Dr. Hansen brimonidine-timolol (COMBIGAN) 0.2-0.5 % ophthalmic solution Use 1 Drop in the left eye twice daily. latanoprost (XALATAN) 0.005 % ophthalmic solution Use 1 Drop in both eyes daily at bedtime. BREO ELLIPTA 100-25 mcg/dose inhaler vit C/E/zinc ox/trevor/lut/zeax (ICAPS AREDS2 ORAL) loratadine (CLARITIN REDITABS) 10 mg dissolvable tablet Take 1 tablet by mouth once daily as needed(allergies). DULCOLAX, BISACODYL, ORAL Take 1 tablet by mouth as needed. polyethylene glycol 3350 (MIRALAX, GLYCOLAX) 17 gram/dose powder Drink a mix of 1 scoop in 8oz of water/beverage once daily as needed for constipation. cyanocobalamin (VITAMIN B-12) 1,000 mcg tab Take 1,000 mcg by mouth once daily. albuterol HFA (VENTOLIN HFA) 90 mcg/actuation inhaler Inhale 2 Puffs as instructed every 4 hours asneeded for Wheezing/Shortness of Breath. MULTIVITAMIN TAB Take one(1) tablet daily. FAMILY HISTORY Problem Relation Age of Onset Cancer Mother Arthritis Mother Kidney Disease Mother Cancer Father lung Social History Tobacco Use Smoking status: Former Current packs/day: 0.00 Average packs/day: 0.5 packs/day for 10.0 years (5.0 ttl pk-yrs) Types: Cigarettes Start date: 05/14/1955 Quit date: 05/14/1965 Years since quittin.0 Passive exposure: Past Smokeless tobacco: Never Vaping Use Vaping status: Never Used Substance Use Topics Alcohol use: Yes Comment: 1/2 glass of wine twice per month Drug use: No BP 124/72 Pulse 62 Resp 18 Wt 77.4 kg (170 lb 10.2 oz) SpO2 95% BMI 31.21 kg/m Physical Exam Vitals reviewed. Constitutional: General: She is not in acute distress. Appearance: She is not ill-appearing or toxic-appearing. HENT: Mouth/Throat: Mouth: Mucous membranes are moist. Eyes: Conjunctiva/sclera: Conjunctivae normal. Cardiovascular: Rate and Rhythm: Normal rate and regular rhythm. Heart sounds: Normal heart sounds. No murmur heard. Pulmonary: Effort: Pulmonary effort is normal. Breath sounds: Normal breath sounds. No wheezing, rhonchi or rales. Musculoskeletal: Right lower leg: No edema. Left lower leg: No edema. Lymphadenopathy: Cervical: No cervical adenopathy. Upper Body: Right upper body: No supraclavicular adenopathy. Left upper body: No supraclavicular adenopathy. Skin: General: Skin is warm and dry. Neurological: Mental Status: She is alert. Psychiatric: Mood and Affect: Mood and affect normal. Data Reviewed: see HPI ASSESSMENT/PLAN: 1. Nocturnal hypoxia - ICD9: 327.24, ICD10: G47.34 (primary diagnosis) Etiology unclear. She will have in lab sleep study to evaluate further, will defer ordering to sleep medicine Check: - ECHO - PERFLUTREN LIPID MICROSPHERES 1.1 MG/ML INJECTION IN NS 10 ML - SODIUM CHLORIDE 0.9 % (FLUSH) INJECTION SYRINGE She will contact her air route traffic controller to discuss lung function testing Follow-up pending results 2. Chest discomfort - ICD9: 786.59, ICD10: R07.89 Atypical chest pain, symptoms are not consistent with cardiac ischemia due to nonexertional nature of symptom and localization of the pain possible etiology include bronchiectasis/asthma and anxiety - ECG COMPLETE today int he office indicating atrial paced rhythm with prolonged AV conduction. No ischemic changes. See plan above - ECHO - PERFLUTREN LIPID MICROSPHERES 1.1 MG/ML INJECTION IN NS 10 ML - SODIUM CHLORIDE 0.9 % (FLUSH) INJECTION SYRINGE 3. Bronchiectasis without complication (HCC) - ICD9: 494.0, ICD10: J47.9 As above Prescription instructions reviewed with patient as applicable. Potential red flag symptoms discussed with the patient. Reviewed appropriate action plan to take if red flag symptoms occur. Patient agreeable to treatment plan. Dia Lopez APRN.CNP documented in this encounterK[facility]09-06-2024 NoteWay[facility] Telephone encounter Note* Telephone Encounter - Dia Lopez APRN.CNP - 05/12/2024 1:53 PM EDT Will address tomorrow Dia Lopez APRN.CNP [facility]09-05-2024 Miscellaneous Notes* Telephone Encounter - Dia Lopez APRN.CNP - 05/12/2024 1:53 PM EDT Will address tomorrow Dia Lopez APRN.CNP * Telephone Encounter - Ailyn Simpson - 05/12/2024 1:21 PM EDT Patient transferred to [facility] for assistance with scheduling lab sleep study. No orders available in patient's chart, PSS unable to schedule without orders. Please notify patient when orders have been signed and are available. * Telephone Encounter - Ute Gibbs RN - 05/12/2024 1:16 PM EDT Patient calling to schedule f/u appointment with PCP for HSAT results that show: Hypoxia was present throughout this study, even in the absence of respiratory events, with the patient having a mean O2 saturation of 87%. Recommend an in-laboratory polysomnogram with use of a transcutaneous CO2 monitor. In addition, clinical correlation is advised as such finding might suggest an underlying cardiac or pulmonary disorder.. See Dr. Kelly result note message to patient. She does not use oxygen. She says her 02 Sat decreased to91% with activity in Physical Therapy today. Scheduled with Dia Lopez NP to evaluate hypoxia on 05/13/24. Transferred to pharmacist manager for in lab sleep study. Ute Gibbs RN documented in this encounterKettering [facility]09-05-2024 Telephone encounter Note * Telephone Encounter - Ailyn Simpson - 05/12/2024 1:21 PM EDT Patient transferred to [facility] for assistance with scheduling lab sleep study. No orders available in patient's chart, PSS unable to schedule without orders. Please notify patient when orders have been signed and are available. [facility]09-05-2024 Telephone encounter Note* Telephone Encounter - Ute Gibbs RN - 05/12/2024 1:16 PM EDT Patient calling to schedule f/u appointment with PCP for HSAT results that show: Hypoxia was present throughout this study, even in the absence of respiratory events, with the patient having a mean O2 saturation of 87%. Recommend an in-laboratory polysomnogram with use of a transcutaneous CO2 monitor. In addition, clinical correlation is advised as such finding might suggest an underlying cardiac or pulmonary disorder.. See Dr. Kelly result note message to patient. She does not use oxygen. She says her 02 Sat decreased to91% with activity in Physical Therapy today. Scheduled with Dia Lopez NP to evaluate hypoxia on 05/13/24. Transferred to pharmacist manager for in lab sleep study. Ute Gibbs RN [facility]09-05-2024 [facility] History of Present illness Narrative* Jackie Lainez, PT - 05/12/2024 11:52 AM EDT Episode Visit Count: 3 Therapist That Will Accept/Oversee The Plan Of Care: Jackiemarly Lainez Start of Care Date: 04/26/24 Onset Date: 09/07/23 Plan of Care Certification Date: 04/26/24 Next Certification Due Date: 06/26/24 Patient Identified by Name and Date of : Yes REHABILITATION AND SPORTS THERAPY PHYSICAL THERAPY TREATMENT NOTE ASSESSMENT: Geoffrey Nassar tolerated the session with shortness of breath, fatigue, and expected muscle soreness. She demonstrated improvements in motor planning with stepping over hurdles. The patient will continue to benefit from ongoing skilled physical therapy to progress toward set goals. PLAN FOR NEXT VISIT: Continue with balance on non-compliant surfaces. SUBJECTIVE: Pt reports that things are going okay.Pt denies having any falss since last session. Ptstates that she is having pain in her feet today, had a podiatry appointment yesterday. Pt states that after last session, she had to go to the lobby and sit down due to being SOB before she could continue to her car. Pain: Pain Pain Level: 3 Pain Location: Foot - Left, Foot - Right OBJECTIVE MEASURES WITH LEVEL OF FUNCTION: Pt challenged with alt toe taps on BOSU. Vitals SpO2: 97 % Additional Vitals: Yes Pre Assessment: SpO2 Pre SpO2: 91 (after 2 standing balance exercises) Intra Assessment 1: SpO2 Intra 1 Intra SpO2 1: 96 Intra Assessment 2: SpO2 Intra 2 Intra SpO2 2: 93 Post Assessment: SpO2 Post Post SpO2: 92 TREATMENT: Neuromuscular Re-Education: 1: NBOS, semi tandem, and tandem stance on flat ground EO x30 sec each (With tandem stance, 1 bout of LOB with each LE leading wiht pt self-correction using // bar) 2: NBOS, semi tandem, flat ground EC x30 sec each 3: Alt taps on BOSU 2x10 B without UE support 4: Stepping over 6, 6 inch hurdles in // bars with 1 UE assist x 1 round, then x 1 round without UEassist 5: Lateral stepping over 6,6inch hurdles x 1 round each direction without UE assist Skilled Intervention: Skilled judgment used to assess appropriate program for balance and coordination activity. Ensured patient safety with use of gait belt. Billing Neuromuscular Re-Education Treatment Minutes: 39 Skilled Treatment Time Minutes (timed and untimed codes): 39 Total Session Time (minutes): 39 Session Start Time : 1150 Session Stop Time : 1229 DIONI Magana PT documented in this encounterK[facility]08-30-2024 [facility] History of Present illness Narrative* Aubrey Sarmiento - 05/06/2024 10:51 AM EDT Sleep Study Check-In Documentation Date: May 06, 2024 Name: Geoffrey Nassar Comments: HST was returned in working order with all sleep questionnaires Aubrey Sarmiento * Cher North - 05/02/2024 8:50 PM EDT [facility] # [id number] , date shipped out 05-03-24 Fed ex only Tracking mailout: [id number] Tracking return: [phone] [id number] * Alison Siddiqi - 04/29/2024 8:55 AM EDT April 29, 2024 An order has been received for Home Sleep Apnea Test (HSAT) from Kaya Whitman Jr., MD , A. Sleep Center Staff/Senior Architectural Designer Staff Orders. Visit prep complete - Please refer to the sleep study order (under procedures tab) for protocol details and special instructions. The sleep study is scheduled for 05/03. Insurance: Payor: MEDICARE / Plan: MEDICARE A AND B / Product Type: Medicare / Payer/Plan Subscr Sex Relation Sub. Ins. ID Effective Group Num 1. [place] - [place]* GEOFFREY NASSAR 1935 Female Self [id number] 02[birth year] [address] ANTHEM - ANTH* GEOFFREY NASSAR 1935 Female Self [id number] 08/[birth year] [id number] [id number] Alison Neeru documented in this encounterKet[facility]08-29-2024 [facility]Way[facility]08-29-2024 History of Present illness Narrative* Jackie Lainez PT - 05/05/2024 2:46 PM EDT Episode Visit Count: 2 Therapist That Will Accept/Oversee The Plan Of Care: Jackie Lainez Start of Care Date: 04/26/24 Onset Date: 09/07/23 Plan of Care Certification Date: 04/26/24 Next Certification Due Date: 06/26/24 REHABILITATION AND SPORTS THERAPY PHYSICAL THERAPY TREATMENT NOTE ASSESSMENT: Geoffrey Nassar tolerated the session with fatigue. She demonstrated difficulty with endurance and unstable surface balance. The patient will continue to benefit from ongoing skilled physical therapy to progress toward set goals. PLAN FOR NEXT VISIT: SUBJECTIVE: Patient feeling tired today due to a sleep study last night Pain: Pain Pain Level: 0 OBJECTIVE MEASURES WITH LEVEL OF FUNCTION: CGA with gait belt for all balance exercises TREATMENT: Neuromuscular Re-Education: 1: NBOS, semi tandem, and tandem stance on flat ground EO x30 sec each 2: NBOS, semi tandem on airex pad; arms crossed and EC x30 sec each 3: Wobble board front to back and side to side; taps x30 reps each and static holds x30 sec each 4: Taps on BOSU ball x10/side (pain with RLE being stance leg due to hip fatigue) Skilled Intervention: Skilled judgment used to assess appropriate program for balance and coordination activity. Ensured patient safety with use of gait belt and CGA Billing Neuromuscular Re-Education Treatment Minutes: 38 Skilled Treatment Time Minutes (timed and untimed codes): 38 Total Session Time (minutes): 38 Session Start Time : 1240 Session Stop Time : 1318 Jackie Lainez PT documented in this encounterKettering [facility]08-26-2024 NoteHNO ID: [id number] Author: ?, ?, ? Service: ? Author Type: ? Type: Progress Notes Filed: 05/06/2024 10:52 Note Text: [facility] # [id number] , date shipped out 05-03-24 Fed ex only Tracking mailout: [id number] Tracking return: [id number]08-26-20[facility] Telephone encounter Note* Telephone Encounter - Ute Gibbs RN - 05/02/2024 2:15 PM EDT The patient has been identified by name and date of : Yes Caregiver verified no other encounters exist for this prescription request: Yes Caregiver confirmed with patient/requestor that no other refills are due, in the near future, with this provider at this time: Yes The last office visit in the department: 03/30/2024 Does the patient have a future office visit with this provider/department: Yes 09/30/2024 Requested Prescriptions Pending Prescriptions Disp Refills baclofen 5 mg tablet 180 tablet 3 Sig: Take 1 tablet by mouth two times a day. Patient requests new script due to change in pharmacy. Ute Gibbs RN May 02, 2024 2:15 PM [facility]08-26-2024 Miscellaneous Notes* Telephone Encounter - Ute Gibbs RN - 05/02/2024 2:15 PM EDT The patient has been identified by name and date of : Yes Caregiver verified no other encounters exist for this prescription request: Yes Caregiver confirmed with patient/requestor that no other refills are due, in the near future, with this provider at this time: Yes The last office visit in the department: 03/30/2024 Does the patient have a future office visit with this provider/department: Yes 09/30/2024 Requested Prescriptions Pending Prescriptions Disp Refills baclofen 5 mg tablet 180 tablet 3 Sig: Take 1 tablet by mouth two times a day. Patient requests new script due to change in pharmacy. Ute Gibbs RN May 02, 2024 2:15 PM documented in this encounterKettering [facility]08-23-2024 NoteWay[facility]08-21-2024 Note[facility]08-21-2024 History of Present illness Narrative* Jackie Lainez, PT - 04/27/2024 8:54 AM EDT Images from the original note were not included. Episode Visit Count: 1 Therapist That Will Accept/Oversee The Plan Of Care: Jackie Lainez Start of Care Date: 04/26/24 Onset Date: 09/07/23 Plan of Care Certification Date: 04/26/24 Next Certification Due Date: 06/26/24 Patient Identified by Name and Date of : Yes REHABILITATION AND SPORTS THERAPY PHYSICAL THERAPY EVALUATION PLAN OF CARE: Assessment: Geoffrey Nassar presents with chief complaint of multiple falls and unsteady gait that interferes with rising from a chair, standing, walking, stair negotiation . She presents with impairments in ADL's, balance, gait, overall function, and strength. PROMIS (Patient-Reported Outcomes Measurement Information System) scores were reviewed and identified as a rehabilitation concern. Prognosis for therapy is Good due to: current objective clinical presentation, positive past response to therapy, good support system/ coping skills . She will benefit from skilled therapy services to meet the goals established for this plan of care as noted below. Assessment Fall Risk : Complex at risk Goals for Episode of Care: created on 04/26/24 through 06/26/24 Patient will report no falls. Improve score on Timed Up and Go Test to 10 seconds to reflect decreased fall risk. Improve score on 30 Second Chair Stand to 10 repetitions to reflect decreased fall risk. Improve performance on 4 Stage Balance Test to 10 seconds in SLS to reflect decreased fall risk. [place] in home exercise program including cardiovascular exercise. Planned Interventions, Frequency, and Duration: Current Frequency: 1x/week Duration: 8 weeks Total Number of Visits Planned: 8 Planned Treatment Interventions: Therapeutic exercise (32308), Neuromuscular re- education (50185), Manual therapy (89658), Therapeutic activities (76957), Self- correction management (18950), Patient/Family/Caregiver Education, Body Mechanics Training, Gait Training (89981) PLAN FOR NEXT VISIT: Initiate balance exercises challenging unstable surfaces and various SLS/NBOS Patient demonstrates good understanding of plan of care and treatment. The above goals and plan of care were discussed and agreed upon by patient/family. SUBJECTIVE: Patient here today for PMH of multiple falls and worsening gait/unsteadiness on her feet. She started using a cane after her last fall, and feels this does help slow her down and make her feel safer/more steady. Functional Limitations: rising from a chair, standing, walking, stair negotiation Falls History # of falls in past year: 3 # of falls resulting in an injury in past year: 2 Pain: Pain Pain Level: 0 PROMIS Scales 04/25/2024 01/23/2020 Higher is Better Phys Func - Score 33 (moderate dysfunction) 47 (within normal limits) Phys Func - Percentile 4 38 Self-Eff Symptom - Score 46 (Average) 43 (Average) Self-Eff Symptom - Percentile 34 24 T-scores: mean of general population = 50. 5 points is clinically meaningfully difference Percentiles provide an indication of how the patient's score ranks in relation to the general population. Higher percentile rankings indicate better function/quality of life. 50th percentile is the average of the general population and indicates half of respondents had a worse score. OBJECTIVE MEASURES WITH LEVEL OF FUNCTION: LE Strength R LE Strength: 4/5 grossly L LE Strength: 4/5 grossly Functional Performance Test Results 30 Second Chair Stand Test: 8 reps Timed Up and Go (sec): 14.9 sec 4 Stage Balance Test Narrow base of support (sec): 10 sec Semi-tandem base of support (sec): 10 sec Tandem base of support (sec): 10 sec Single leg stance - right (sec): 6 sec Single leg stance - left (sec): 6 sec Vitals BP: 113/78 Pulse: 70 SpO2: 95 % Education: TREATMENT: PT Treatment Interventions: Therapeutic Exercise Evaluation Therapeutic Exercise: 1: *STS 3x10 2: *Standing hip abduction 3x10/side (at countertop) 3: *Standing heel raises 3x10 (at countertop) 4: *Standing toe raises 3x10 (at countertop) Skilled Intervention: Patient was educated in proper exercise technique and purpose for exercises. Skilled judgment was used in selection of appropriate interventions. Provided written instruction for home exercise program to facilitate proper performance and compliance. Correct performance of therapeutic exercises was facilitated with verbal, visual, and tactile cuing. Billing * Evaluation Moderate Complexity: 1 Unit Therapeutic Exercise Treatment Minutes: 10 Skilled Treatment Time Minutes (timed and untimed codes): 40 Total Session Time (minutes): 40 Session Start Time : 1505 Session Stop Time : 1545 Jackie Lainez PT * Jackie Lainez PT - 04/26/2024 3:42 PM EDT Program_ID:[id number] Access Code: [email or web address] URL: [email or web address] Date: 04-26-2024 Prepared By: Jackie Lainez Program Notes Exercises - Sit to Stand - 1 x daily - 7 x weekly - 3 sets - 10 reps - Standing Hip Abduction with Counter Support - 1 x daily - 7 x weekly - 3 sets - 10 reps - Standing Heel Raises - 1 x daily - 7 x weekly - 3 sets - 10 reps - Standing Toe Raises at Chair - 1 x daily - 7 x weekly - 3 sets - 10 reps documented in this encounterK[facility]08-15-2024 History of Present illness Narrative* Michelle Vazquez APRN.CNP - 04/21/2024 1:00 PM EDT NEUROSURGERY TELEPHONE VISIT PROGRESS NOTE Michelle Vazquez APRN.MICROBIOLOGICAL LABORATORY TECHNICIAN This is a telephone encounter initiated for an established patient, parent or guardian not originating from a related Evaluation & Management service provided within the previous 7 days nor leading to an Evaluation & Management service or procedure within the next 24 hours or soonest available appointment. Date of visit: April 19, 2024 Patient Name: Ms.Sally Barbie Nassar Date of : 1935 Current Age: [age] year old MRN/E# [id number] Last Office Visit: 01/21/2024 Ms.Sally Barbie Nassar has consented to this telephone encounter. PERSONS PRESENT: patient CHIEF COMPLAINT: Patient presents with: Follow Up HPI: The patient presents via telephone for a follow up without new imaging for evaluation. This is an 89-year-old female with a PMHx of diverticulosis, HTN, PE, pacemaker, asthma, umbilical hernia, GERD,hypothyroidism, degenerative disc disease (lumbar) tubular adenoma of the colon who was seen for consult at [facility] on 10/03/2023 after transfer from an outside ED by Dr. Holder. Patient was seen aftera fall in her driveway after tripping over a curb causing her to strike her head. She reported taking low-dose ASA daily. Upon further evaluation the patient reported that she had fallen 3 times since May 2023 and had been experiencing headaches and dizziness. She denied any LOC. Workup was completed and demonstrated multifocal traumatic subarachnoid hemorrhages. ASA was placed on hold and reversed with DDAVP, she was started on a short course of Keppra for seizure prophylaxis and monitored in the ICU. Repeat imaging remained stable and no neurosurgical intervention was indicated. Recommendation was to continue to hold ASA and follow-up in [address] She was seen in the office on 10/22/23 and reported that she was doing well since hospital discharge. She denied headache, visual changes, speech deficits, seizure activity, motor or sensory deficits.Low-dose aspirin remained on hold. Neurologically she was intact on exam without focal deficit witha slight compensated gait. CT was reviewed and compared to previous scans. Imaging showed no evidence of the previously noted subarachnoid hemorrhage along the left parietal lobe and left parietal operculum. There was no evidence of acute hemorrhage noted. She was advised to continue to hold low-dose ASA which she was taking for a previous TIA for a total of 4 weeks post trauma. She was told she t hen may resume the ASA if medically necessary. Recommendation was to follow-up in about 2 and half to 3 months for a routine evaluation. She was last seen in the office on 01/21/2024 and reported that she was overall doing well. She denied any new or concerning issues. She had resumed her low- dose ASA and remained stable. Neurologically she was intact on exam without focal deficit. She did report intermittent issues with balance but stated that she had not fallen since her prior visit. She had not scheduled PT/OT and was encouragedto do so. Recommendation was for continued monitoring and to follow-up via telephone in 3 months prompting her visit today. Since last visit she states that she is overall doing well and denies any specific complaints or concerns. She is back to her daily activities and routine including baking anddriving. She denies any new neurological complaints or concerns. She presents via telephone for evaluation and plan of care. PREVIOUS SURGERY: None SURGICAL RISK: Smoker: Former -quit 05/14/1965 Diabetic: No Anticoagulants / Antiplatelets: ASA Occupation: N/A Current Outpatient Medications Medication Sig Dispense Refill ergocalciferol 50,000 unit capsule (VITAMIN D2, DRISDOL) Take 1 capsule by mouth every 4 weeks. 3 capsule 3 LORazepam (ATIVAN) 2 mg tab Take 1 tablet by mouth daily at bedtime for 90 days. 30 tablet 2 levothyroxine (SYNTHROID) 88 mcg tablet Take 1 tablet by mouth five times a week. Mondays thru Fridays. None on Saturdays and Sundays. 66 tablet 1 meloxicam (MOBIC) 15 mg tablet Take 1 tablet by mouth once daily. 90 tablet 3 baclofen 5 mg tablet Take 1 tablet by mouth two times a day. [address] (PROTONIX) 20 mg tablet Take 2 tablets by mouth once daily. 180 tablet 3 PARoxetine (PAXIL) 40 mg tablet Take 1 tablet by mouth once daily. 90 tablet 3 amLODIPine (NORVASC) 5 mg tablet Take 1 tablet by mouth once daily. 90 tablet 3 lisinopril (ZESTRIL) 40 mg tablet Take 1 tablet by mouth once daily. 90 tablet 3 lamoTRIgine (LAMICTAL) 25 mg tablet Take 1 tablet by mouth once daily. 90 tablet 3 aspirin, enteric coated (ASPIRIN, ENTERIC COATED) 81 mg EC tablet Take 1 tablet by mouth once daily. acetaminophen (TYLENOL) 500 mg tablet Take 2 tablets by mouth every 8 hours as needed for pain. vibegron (GEMTESA) 75 mg tablet Take 1 tablet by mouth once daily. Prescribed by Dr. Hansen brimonidine-timolol (COMBIGAN) 0.2-0.5 % ophthalmic solution Use 1 Drop in the left eye twice daily. 5 mL 1 latanoprost (XALATAN) 0.005 % ophthalmic solution Use 1 Drop in both eyes daily at bedtime. 5 mL 2 BREO ELLIPTA 100-25 mcg/dose inhaler vit C/E/zinc ox/trevor/lut/zeax (ICAPS AREDS2 ORAL) loratadine (CLARITIN REDITABS) 10 mg dissolvable tablet Take 1 tablet by mouth once daily as needed(allergies). DULCOLAX, BISACODYL, ORAL Take 1 tablet by mouth as needed. polyethylene glycol 3350 (MIRALAX, GLYCOLAX) 17 gram/dose powder Drink a mix of 1 scoop in 8oz of water/beverage once daily as needed for constipation. 1 Bottle 0 cyanocobalamin (VITAMIN B-12) 1,000 mcg tab Take 1,000 mcg by mouth once daily. albuterol HFA (VENTOLIN HFA) 90 mcg/actuation inhaler Inhale 2 Puffs as instructed every 4 hours asneeded for Wheezing/Shortness of Breath. 1 Inhaler 5 MULTIVITAMIN TAB Take one(1) tablet daily. 0 No current facility-administered medications for this visit. REVIEW OF SYSTEMS: Review of Systems Constitutional: Negative for chills, diaphoresis (Negative for night sweats.) and fever. HENT: Negative for ear discharge and rhinorrhea. Eyes: Negative for discharge. Respiratory: Negative for cough, shortness of breath and wheezing. Cardiovascular: Negative for chest pain, palpitations and leg swelling. Gastrointestinal: Negative for constipation, diarrhea, nausea and vomiting. Endocrine: Negative for cold intolerance and heat intolerance. Genitourinary: Negative for frequency. Negative for urinary incontinence and urinary retention. Musculoskeletal: Negative for back pain, joint swelling, myalgias and neck pain. Skin: Negative for rash (Negative for hives and skin lesions.). Allergic/Immunologic: Negative for environmental allergies and food allergies. Negative for contact allergy, seasonal allergies. Neurological: Negative for dizziness, seizures, syncope, weakness, light- headedness, numbness (Negative for numbness in extremities.) and headaches. Hematological: Does not bruise/bleed easily. Psychiatric/Behavioral: The patient is not nervous/anxious. Negative for depression. IMAGING: No new imaging ASSESSMENT/PLAN: (I60.9) SAH (subarachnoid hemorrhage) (HCC) (primary encounter diagnosis) Comment: This is a very pleasant 89-year-old female who presents via telephone for a routine TBI follow-up. She reports that she is overall doing well and denies any specific complaints or concerns. She has returned to baseline and is cooking, baking and driving without an issue. She states that she is neurologically intact without focal deficit. I told her that I am pleased with her outcome thusfar and she concurs. At this point we will follow-up in 6 months time either in person or by telephone for a routine annual follow-up. In the interim should she develop any new or concerning issues Itold her to please feel free to contact the office. All of her questions and concerns were addressed in detail. Plan: 6 month follow up MIKEL Abernathy Neurosurgery Nurse Practitioner [facility] FOLLOW UP: Return in about 6 months (around 10/22/2024) for routine visit (phone or in person). I have communicated my name and active licensure. The patient's identity and physical location wereverified at the time of this visit. Either the patient or their legal fuels sales representative has been informed of the risks and benefits of -- and alternatives to -- treatment through a remote evaluation andconsents to proceed with the evaluation remotely. Time spent: 5-10 minutes Please Note: This note has been partially generated using [employer], a speech recognition software program, and may contain errors including punctuation, grammar, spelling, gender, and inappropriate words or phrases that pertain to the system. documented in this encounterKettering Health [facility]08-15-2024 NoteHNO ID: [id number] Author: MICHELLE VAZQUEZ APRN.CNP Service: ? Author Type: Nurse Practitioner Type: Progress Notes Filed: 04/21/2024 13:27 Note Text: NEUROSURGERY TELEPHONE VISIT PROGRESS NOTE Michelle Vazquez APRN.CNP This is a telephone encounter initiated for an established patient, parent or guardian not originating from a related Evaluation AND Management service provided within the previous 7 days nor leading to an Evaluation AND Management service or procedure within the next 24 hours or soonest available appointment. Date of visit: April 19, 2024 Patient Name: Ms.Sally Barbie Nassar Date of : 1935 Current Age: [age] year old MRN/E# [id number] Last Office Visit: 01/21/2024 Ms.Sally Barbie Nassar has consented to this telephone encounter. PERSONS PRESENT: patient CHIEF COMPLAINT: Patient presents with: Follow Up HPI: The patient presents via telephone for a follow up without new imaging for evaluation. This is an 89-year-old female with a PMHx of diverticulosis, HTN, PE, pacemaker, asthma, umbilical hernia, GERD, hypothyroidism, degenerative disc disease (lumbar) tubular adenoma of the colon who was seen for consult at [facility] on 10/03/2023 after transfer from an outside ED by Dr. Holder. Patient was seen after a fall in her driveway after tripping over a curb causing her to strike her head. She reported taking low-dose ASA daily. Upon further evaluation the patient reported that she had fallen 3 times since May 2023 and had been experiencing headaches and dizziness. She denied any LOC. Workup was completed and demonstrated multifocal traumatic subarachnoid hemorrhages. ASA was placed on hold and reversed with DDAVP, she was started on a short course of Keppra for seizure prophylaxis and monitored in the ICU. Repeat imaging remained stable and no neurosurgical intervention was indicated. Recommendation was to continue to hold ASA and follow-up in [address] She was seen in the office on 10/22/23 and reported that she was doing well since hospital discharge. She denied headache, visual changes, speech deficits, seizure activity, motor or sensory deficits. Low-dose aspirin remained on hold. Neurologically she was intact on exam without focal deficit with a slight compensated gait. CT was reviewed and compared to previous scans. Imaging showed no evidence of the previously noted subarachnoid hemorrhage along the left parietal lobe and left parietal operculum. There was no evidence of acute hemorrhage noted. She was advised to continue to hold low-dose ASA which she was taking for a previous TIA for a total of 4 weeks post trauma. She was told she then may resume the ASA if medically necessary. Recommendation was to follow-up in about 2 and half to 3 months for a routine evaluation. She was last seen in the office on 01/21/2024 and reported that she was overall doing well. She denied any new or concerning issues. She had resumed her low-dose ASA and remained stable. Neurologically she was intact on exam without focal deficit. She did report intermittent issues with balance but stated that she had not fallen since her prior visit. She had not scheduled PT/OT and was encouraged to do so. Recommendation was for continued monitoring and to follow-up via telephone in 3 months prompting her visit today. Since last visit she states that she is overall doing well and denies any specific complaints or concerns. She is back to her daily activities and routine including baking and driving. She denies any new neurological complaints or concerns. She presents via telephone for evaluation and plan of care. PREVIOUS SURGERY: None SURGICAL RISK: Smoker: Former -quit 05/14/1965 Diabetic: No Anticoagulants / Antiplatelets: ASA Occupation: N/A Current Outpatient Medications Medication Sig Dispense Refill ergocalciferol 50,000 unit capsule (VITAMIN D2, DRISDOL) Take 1 capsule by mouth every 4 weeks. 3 capsule 3 LORazepam (ATIVAN) 2 mg tab Take 1 tablet by mouth daily at bedtime for 90 days. 30 tablet 2 levothyroxine (SYNTHROID) 88 mcg tablet Take 1 tablet by mouth five times a week. Mondays thru Fridays. None on Saturdays and Sundays. 66 tablet 1 meloxicam (MOBIC) 15 mg tablet Take 1 tablet by mouth once daily. 90 tablet 3 baclofen 5 mg tablet Take 1 tablet by mouth two times a day. [address] (PROTONIX) 20 mg tablet Take 2 tablets by mouth once daily. 180 tablet 3 PARoxetine (PAXIL) 40 mg tablet Take 1 tablet by mouth once daily. 90 tablet 3 amLODIPine (NORVASC) 5 mg tablet Take 1 tablet by mouth once daily. 90 tablet 3 lisinopril (ZESTRIL) 40 mg tablet Take 1 tablet by mouth once daily. 90 tablet 3 lamoTRIgine (LAMICTAL) 25 mg tablet Take 1 tablet by mouth once daily. 90 tablet 3 aspirin, enteric coated (ASPIRIN, ENTERIC COATED) 81 mg EC tablet Take 1 tablet by mouth once daily. acetaminophen (TYLENOL) 500 mg tablet (more content not included)...[facility]08-12-2024 Instructions* Patient Instructions* Kaya Cartwright Jr., MD - 04/18/2024 9:08 AM EDT Your most recent body mass index (BMI) that we have on record is 31.31 kg/m2. Obstructive sleep apnea (JADIEL) worsens with an increase in weight; reduction in weight may improve or resolve your JADIEL. Ifyou are not already seeking treatment, there are resources available at the [facility] such as a nutrition consultation or referral to weight management programs at our [facility]. Please let us know if we can assist with a referral. documented in this [facility]24 Note[facility] History of Present illness Narrative* Kaya Cartwright Jr., MD - 04/18/2024 8:21 AM EDT NEW PATIENT (CONSULT) HISTORY AND PHYSICAL EXAM PRIMARY CARE PHYSICIAN: Ken Contreras MD REASON FOR CONSULT: See below REFERRING PHYSICIAN: Ailyn Bonner, APR* CHIEF COMPLAINT: Can't wake up in AM Consultation requested by Ailyn Bonner, APR* for an opinion regarding chief complaint of Patient presents with: New Patient Evaluation: C/o not being able to stay sleep at night poss. D/t urine frequency, difficulty waking in the morning, no cpap, has had sleep study done but no action taken after results and my final recommendations will be communicated back to the requesting physician by way of sharedmedical record or letter via US mail. HISTORY OF PRESENT ILLNESS: Geoffrey Nassar is a 89 year old female, BMI 31.31 kg/m2 with a PMH significant for TBI -followed by TBI clinic. Presents with complaints of insomnia since time of that TBI. Note prior to visit, patient did have PSG in 2018 that per report was unremarkable ([facility]) -- note BMI unchanged since that time. Pt, however, then states it is not a problem of not sleeping at night but then states it is an inability to wake in the AM. Pt states symptoms started after TBI in September. On further discussion states always had problems waking in the AM but getting worse. States does not sleep all the way through the night as sets alarm every 3 hours to get up and got to the bathroom. States if does not set alarm her body does not feel it needs to go to bathroom. Urologic symptomspresent since accident as was off a medication that helped control such symptoms. Going to bed about 1130PM and turns lights out at 2AM - preceded by getting ready for bed and reading for 1/2 hour. When turns light out is asleep in about 10 minutes. Very rarely has sleep onset insomnia. Chronic use on Ativan at bedtime 2mg -- states takes to help her fall asleep. If does not take Ativan will tossand turn. However, not endorsing specific RLS symptoms. If does not take it during the day, can take naps without it. Waking to start the day in the AM around Noon, 1PM, 2PM. States has so many things needs to do but does not get much done because waking in afternoon. Has been sleep schedule for a long time. On further review, patient also on Baclofen - if does not take has back spasms. During the night, patient does snore and has woken herself due to snoring. No dry mouth during the AM. No headaches in the AM. When asked about anxiety, states she is a worrier, and lives with older brother who was diagnosed last year with afib and CHF - states feeling better, but does worry about it. Also adaughter in [place], [place] she worries about. States another daughter with eating disorder and granddaughter in [place] who is alone but a future dancer. despite road cutter depression and anxiety and multiple meds, has never seen psychiatry. Saw psychologist once but does not believe it helped her much. When asked more about Ativan, reason she started on it was that without it she could not take deep breaths. No parasomnias. PHQ 9 Data More data exists 04/15/2024 11/05/2023 09/29/2023 PHQ-9 All Questions Little interest or pleasure in doing things 1 3 1 Feeling down, depressed, or hopeless 1 3 1 Trouble falling or staying asleep, or sleeping too much 2 3 3 Feeling tired or having little energy 2 3 3 Poor appetite or overeating 1 0 0 Feeling bad about yourself - or that you are a failure or have let yourself or your family down 1 00 Trouble concentrating on things, such as reading the newspaper or watching television 1 0 0 Moving or speaking so slowly that other people could have noticed. Or the opposite - being so fidgety or restless that you have been moving around a lot more than usual 0 0 0 Thoughts that you would be better off , or of hurting yourself in some way 0 0 0 PHQ-9 Score 9 12 12 12 8 JESSENIA 7 Data More data exists 11/05/2023 09/29/2023 06/30/2018 JESSENIA-7 All Questions Feeling nervous, anxious, or on edge Several days Several days Not at all Not being able to stop or control worrying Nearly Everyday Several days Not at all Worrying too much about different things Nearly Everyday Several days - Trouble relaxing Not at all Not at all - Being so restless that it is hard to sit still Not at all Not at all - Becoming easily annoyed or irritable Several days Not at all - Feeling afraid, as if something awful might happen Nearly Everyday Several days - JESSENIA-7 Score 11 11 11 4 - PROMIS-10 More data exists PROMIS Global Health - (T-Scores - the mean of general population = 50. Five points is a clinicallymeaningful difference.) Physical T-Score Mental T-Score 03/27/2024 39.8 43.5 09/29/2023 34.9 36.3 05/21/2023 42.3 43.5 [place] Sleepiness Scale Scores 04/14/2024 [place] Sleepiness Scale Score 9 Insomnia Severity Index Scores important suggestion No data to display Morningness Eveningness Questionnaire Scores important suggestion No data to display REVIEW OF SYSTEMS GENERAL:No weight loss, malaise or fevers. HEENT:Negative for frequent or significant headaches, No changes in hearing or vision, no nose bleeds or other nasal problems RESPIRATORY: Negative for cough, wheezing or shortness of breath. CARDIOVASCULAR: Negative for chest pain, or palpitations. GASTROINTESTINAL: Negative for abdominal discomfort, blood in stools or black stools or change in bowel habits GENITOURINARY: See HPI. MUSCULOSKELETAL: Negative for joint pain or swelling, back pain or muscle pain. NEUROLOGIC:Negative for focal numbness or weakness, headaches and dizziness or syncope, vision changes, speech/language changes, changes in gait or falls -- besides those complaints as above in HPI. SKIN:Negative for lesions, rash, and itching. PSYCHIATRIC: See HPI. HEMATOLOGIC/LYMPHATIC/IMMUNOLOGIC:Negative for prolonged bleeding, bruising easily or swollen nodes. ENDOCRINE: Negative for cold or heat intolerance, polyuria, polydipsia and goiter. The remainder of the ROS was reviewed and is negative. LAB/IMAGING: Reviewed and include: WBC (k/uL) Date Value 10/05/2023 6.88 RBC (m/uL) Date Value 10/05/2023 4.03 Hemoglobin (g/dL) Date Value 10/05/2023 11.9 Hematocrit (%) Date Value 10/05/2023 38.2 MCV (fL) Date Value 10/05/2023 94.8 MCH (pg) Date Value 10/05/2023 29.5 MCHC (g/dL) Date Value 10/05/2023 31.2 RDW-CV (%) Date Value 10/05/2023 14.2 Platelet Count (k/uL) Date Value 10/05/2023 205 MPV (fL) Date Value 10/05/2023 10.3 Glucose (mg/dL) Date Value 10/05/2023 92 BUN (mg/dL) Date Value 10/05/2023 17 Creatinine (mg/dL) Date Value 10/05/2023 0.67 Sodium (mmol/L) Date Value 10/05/2023 132 (L) Potassium (mmol/L) Date Value 10/05/2023 4.6 Chloride (mmol/L) Date Value 10/05/2023 101 CO2 (mmol/L) Date Value 10/05/2023 23 Protein, Total (g/dL) Date Value 07/02/2023 6.9 Albumin (g/dL) Date Value 07/02/2023 3.9 Calcium, Total (mg/dL) Date Value 10/05/2023 9.1 Alkaline Phosphatase (U/L) Date Value 07/02/2023 117 Bilirubin, Total (mg/dL) Date Value 07/02/2023 0.2 AST (U/L) Date Value 07/02/2023 24 ALT (U/L) Date Value 07/02/2023 11 LISA (no units) Date Value 08/08/2011 Positive (A) Rheumatoid Factor (IU/mL) Date Value 08/08/2011 11 MEDICATIONS: ergocalciferol 50,000 unit capsule (VITAMIN D2, DRISDOL) Take 1 capsule by mouth every 4 weeks. LORazepam (ATIVAN) 2 mg tab Take 1 tablet by mouth daily at bedtime for 90 days. levothyroxine (SYNTHROID) 88 mcg tablet Take 1 tablet by mouth five times a week. Mondays thru Fridays. None on Saturdays and Sundays. meloxicam (MOBIC) 15 mg tablet Take 1 tablet by mouth once daily. baclofen 5 mg tablet Take 1 tablet by mouth two times a day. pantoprazole DR (PROTONIX) 20 mg tablet Take 2 tablets by mouth once daily. PARoxetine (PAXIL) 40 mg tablet Take 1 tablet by mouth once daily. amLODIPine (NORVASC) 5 mg tablet Take 1 tablet by mouth once daily. lisinopril (ZESTRIL) 40 mg tablet Take 1 tablet by mouth once daily. lamoTRIgine (LAMICTAL) 25 mg tablet Take 1 tablet by mouth once daily. aspirin, enteric coated (ASPIRIN, ENTERIC COATED) 81 mg EC tablet Take 1 tablet by mouth once daily. acetaminophen (TYLENOL) 500 mg tablet Take 2 tablets by mouth every 8 hours as needed for pain. vibegron (GEMTESA) 75 mg tablet Take 1 tablet by mouth once daily. Prescribed by Dr. Hansen brimonidine-timolol (COMBIGAN) 0.2-0.5 % ophthalmic solution Use 1 Drop in the left eye twice daily. latanoprost (XALATAN) 0.005 % ophthalmic solution Use 1 Drop in both eyes daily at bedtime. BREO ELLIPTA 100-25 mcg/dose inhaler vit C/E/zinc ox/trevor/lut/zeax (ICAPS AREDS2 ORAL) loratadine (CLARITIN REDITABS) 10 mg dissolvable tablet Take 1 tablet by mouth once daily as needed(allergies). DULCOLAX, BISACODYL, ORAL Take 1 tablet by mouth as needed. polyethylene glycol 3350 (MIRALAX, GLYCOLAX) 17 gram/dose powder Drink a mix of 1 scoop in 8oz of water/beverage once daily as needed for constipation. cyanocobalamin (VITAMIN B-12) 1,000 mcg tab Take 1,000 mcg by mouth once daily. albuterol HFA (VENTOLIN HFA) 90 mcg/actuation inhaler Inhale 2 Puffs as instructed every 4 hours asneeded for Wheezing/Shortness of Breath. MULTIVITAMIN TAB Take one(1) tablet daily. HISTORIES PAST MEDICAL HISTORY 01/18/2021: Bradycardia 11/27/2009: Bronchiectasis without complication (HCC) Comment: Dr. Jaswant Miller, pulmonary. 02/16/2012: DDD (degenerative disc disease), lumbar 03/17/2005: Depression (emotion) 03/17/2005: Depressive disorder w/ seasonal affective disorder No date: Diverticulosis of small intestine (without mention of hemorrhage) 07/08/2011: Enthesopathy of hip region 05/25/2008: Essential hypertension 01/29/2006: Extrinsic asthma 10/03/2023: Fall No date: Family history of malignant neoplasm of gastrointestinal tract Comment: liver cancer 01/30/2012: Foraminal stenosis of cervical region 01/29/2017: Gait disturbance 05/13/2013: Gastroesophageal reflux disease with esophagitis 12/19/2005: HERNIA UMBILICAL 03/17/2005: Hypothyroidism 09/23/2016: Irritable bowel syndrome with both constipation and diarrhea 11/19/2016: Non-STEMI (non-ST elevated myocardial infarction) ([facility]) Comment: setting of acute bilateral pulmonary embolism. 10/29/2020: Oral murray 07/25/2021: Pacemaker 11/24/2016: Pulmonary embolism with acute cor pulmonale ([facility]) Comment: She was initially thought to have a NSTEMI, but was found to be a PE with Right Strain and NOT a NSTEMI. 01/08/2017: Pulmonary nodule 10/03/2023: SAH (subarachnoid hemorrhage) ([facility]) 12/29/2017: Tubular adenoma of colon FAMILY HISTORY Problem Relation Age of Onset Cancer Mother Arthritis Mother Kidney Disease Mother Cancer Father lung SOCIAL HISTORY Social History Tobacco Use Smoking status: Former Packs/day: 0.50 Years: 10.00 Additional pack years: 0.00 Total pack years: 5.00 Types: Cigarettes Quit date: 05/14/1965 Years since quittin.9 Passive exposure: Past Smokeless tobacco: Never Vaping Use Vaping Use: Never used Substance Use Topics Alcohol use: Yes Comment: 1/2 glass of wine twice per month Drug use: No PHYSICAL EXAMINATION BP 122/78 (BP Site: Right Arm, BP Position: Sitting) Pulse 60 Wt 77.7 kg (171 lb 3.2 oz) InQ947% BMI 31.31 kg/m GENERAL EXAM: General appearance: NAD, pleasant. HEENT: NC/AT, nasal congestion absent, no oral lesions, membranes moist. Concepcion I NECK: No masses, supple. Lungs: CTA bilaterally. CV: RRR nl S1, S2. No carotid bruits. Extr: No cyanosis, clubbing or edema. Skin: Cool to touch. NEUROLOGICAL EXAM: General: Awake, alert, oriented x3 (person,place,time), fluent, no dysarthria; comprehension, naming, repetition intact. CN: Unequal and chronic unreactive L pupil secondary to prior cataract surgery, EOMI and without nystagmus, VFF to confrontation, facial sensation and strength are normal and symmetric, hearing is intact, palate and tongue movements are intact and symmetric. SCM and trapezius strength normal. Motor: Normal tone, bulk and strength (5/5) bilaterally (throughout extremities x4). Coordination: FNF, LUISA, HTS intact. No tremors. Sensation: LT, intact throughout. No evidence of neglect. Gait: Stable with normal stride and arm swing. Assessment and Plan: ASSESSMENT/PLAN: 1. Hypersomnia - ICD9: 780.54, ICD10: G47.10 (primary diagnosis) 2. 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 Insomnia, unspecified type - ICD9: 780.52, ICD10: G47.00 4. History of depression - ICD9: V11.8, ICD10: Z86.59 5. History of anxiety - ICD9: V11.8, ICD10: Z86.59 6. Snoring - ICD9: 786.09, ICD10: R06.83 7. Nocturia - ICD9: 788.43, ICD10: R35.1 8. Class 1 obesity with body mass index (BMI) of 31.0 to 31.9 in adult, unspecified obesity type, unspecified whether serious comorbidity present - ICD9: 278.00, V85.31, ICD10: E66.9, Z68.31 Patient with complaints of being unable to wake up and feeling tired during the day - symptoms likely multifactorial. Prior sleep study unremarkable per report as above, but 5 years ago and possible that pt has developed a sleep disorder such as JADIEL that is now disrupting sleep and contributing to symptoms. Pt requests not having another sleep study in lab, and thus, will evaluate by means of HSAT with pt understanding limitations. However, history suggests other factors contributing and would include: -Abnormal circadian pattern (delayed sleep-wake) with pt going to sleep well after midnight and waking around noon the following day on average. Discussed the etiology and physiology of such disorder, but pt not wanting to change her sleep schedule. During our discussion, patient does not want to change her bed or wake time due to her brother. They're patter is to go to eat at 7PM, watch a movie at 9PM, then bedtime as above - I would not want to give that up. -Medication effect with pt taking multiple sedating meds during the day including muscle relaxants as well as Ativan 2.0mg at night. States cannot fall asleep without Ativan due to breathing issues, but appears likely due to racing thoughts and underlying mood disorders. I suspect that patient is unable to metabolize medication as she once did, and now her having a difficult time waking in the AMis due to Ativan and other sedating meds. Pt not wanting to stop Ativan at this time. However, willrefer to [facility] to see if they may be able to work with pt and help her relax more during the night and feel more comfortable in reducing dosing of sedating meds. In addition, I would recommend that patient be seen by chrystal-psych to review medications being used for anxiety and depression, as again, I suspect these are contributing to daytime sleepiness. Currently denies sleep onset insomnia, but again, that is likely due to her being on sedating meds. -Nocturia is resulting in fragmentation of sleep. Recommend patient follow up with urology. Advised pt not to drive or operate heavy machinery if sleep. Encouraged weight loss. I spent a total of 45+ minutes on the date of the service which included preparing to see the patient, [id number] patient care, completing clinical documentation, obtaining and/or reviewing separately obtained history, performing a medically appropriate examination, counseling and educating the pa tient/family/caregiver, ordering medications, tests, or procedures, and communicating results to the patient/family/caregiver. PDMP website checked and validated. All prescriptions have been APPROPRIATELY filled. No suspiciousactivity was identified. 04/18/2024 by Kaya Cartwright MD documented in this encounterK[facility]24 Telephone encounter Note * Telephone Encounter - GavinChirstin LPN - 04/04/2024 7:26 AM EDT Prescription Refill Information The patient has been identified by name and date of : Yes Caregiver verified no other encounters exist for this prescription request: Yes Caregiver confirmed with patient/requestor that no other refills are due, in the near future, with this provider at this time: Yes The last office visit in the department: 03/30/2024 Does the patient have a future office visit with this provider/department: Yes Requested Prescriptions Pending Prescriptions Disp Refills ergocalciferol 50,000 unit capsule (VITAMIN D2, DRISDOL) 3 capsule 3 Sig: Take 1 capsule by mouth every 4 weeks. Christin Alonso LPN April 04, 2024 7:26 AM [facility]07-29-2024 Miscellaneous Notes* Telephone Encounter - Christin Alonso LPN - 04/04/2024 7:26 AM EDT Prescription Refill Information The patient has been identified by name and date of : Yes Caregiver verified no other encounters exist for this prescription request: Yes Caregiver confirmed with patient/requestor that no other refills are due, in the near future, with this provider at this time: Yes The last office visit in the department: 03/30/2024 Does the patient have a future office visit with this provider/department: Yes Requested Prescriptions Pending Prescriptions Disp Refills ergocalciferol 50,000 unit capsule (VITAMIN D2, DRISDOL) 3 capsule 3 Sig: Take 1 capsule by mouth every 4 weeks. Christin Alonso LPN April 04, 2024 7:26 AM documented in this encounterK[facility]07-24-2024 NoteWay[facility]07-[facility] History of Present illness Narrative* Dia Lopez, TITLE INSURANCE SALES REPRESENTATIVE.MICROBIOLOGICAL LABORATORY TECHNICIAN - 03/30/2024 3:04 PM EDT Images from the original note were not included. CC: Patient presents with: F/U 6 months HPI Geoffrey Nassar is a 89 year old female who presents today for above. She fell in September resulting in SAH. Denies residual symptoms that she is aware of, possibly a little more forgetful than she used to be and likes to sleep in late now. Denies feeling depressed, I just really enjoy sleeping and I have nowhere to be. She takes Ativan at bedtime and Paxil for JESSENIA, medication is effective. Denies feeling dizzy, lightheaded or confused after taking Ativan. She had a fall three weeks ago, landedon her right arm on a carpeted floor in her bedroom. Some bruising to the right upper arm but denies pain or loss of ROM. No other injuries. She checks her BP periodically. Taking levothyroxine dailyon an empty stomach. She has mild asthma, follows up with air route traffic controller yearly. No recent exacerbations and using inhalers as prescribed. Review of Systems Constitutional: Negative for chills, diaphoresis, fatigue, fever and unexpected weight change. Respiratory: Negative for cough, shortness of breath and wheezing. Cardiovascular: Negative for chest pain, palpitations and leg swelling. Neurological: Negative for syncope and headaches. PAST MEDICAL HISTORY Diagnosis Date Bradycardia 01/18/2021 Bronchiectasis without complication (HCC) 11/27/2009 Dr. Jaswant Miller, pulmonary. 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 Diverticulosis of small intestine (without mention of hemorrhage) Enthesopathy of hip region 07/08/2011 Essential hypertension 05/25/2008 Extrinsic asthma 01/29/2006 Fall 10/03/2023 Family history of malignant neoplasm of gastrointestinal tract liver cancer Foraminal stenosis of cervical region 01/30/2012 Gait disturbance 01/29/2017 Gastroesophageal reflux disease with esophagitis 05/13/2013 HERNIA UMBILICAL 12/19/2005 Hypothyroidism 03/17/2005 Irritable bowel syndrome with both constipation and diarrhea 09/23/2016 Non-STEMI (non-ST elevated myocardial infarction) (HCC) 11/19/2016 setting of acute bilateral pulmonary embolism. Oral murray 10/29/2020 Pacemaker 07/25/2021 Pulmonary embolism with acute cor pulmonale (HCC) 11/24/2016 She was initially thought to have a NSTEMI, but was found to be a PE with Right Strain and NOT a NSTEMI. Pulmonary nodule 01/08/2017 SAH (subarachnoid hemorrhage) (HCC) 10/03/2023 Tubular adenoma of colon 12/29/2017 PAST SURGICAL HISTORY Procedure Laterality Date CHOLECYSTECTOMY 1998 COLONOSCOPY FLX DX W/COLLJ SPEC WHEN PFRMD 12/18/2005 COLONOSCOPY FLX DX W/COLLJ SPEC WHEN PFRMD 09/17/2011 COLONOSCOPY FLX DX W/COLLJ SPEC WHEN PFRMD 11/30/2017 Colonoscopy - adenomatous polyp-5 year follow-up EGD 05/29/2017 LASER IRIDOPLASTY OS (LEFT EYE) Left LASER IRIDOTOMY OD (RIGHT EYE) Right PACEMAKER INSERTSION 05/29/2021 dual lead PAST SURGICAL HISTORY OF 09/2007 jacinto eyelid removal dropping skin PAST SURGICAL HISTORY OF Bilateral 11/24/2011 cataract removal 11/19/11, 11/24/11 SLING OPER STRES INCONTINENCE 2004 TONSILLECTOMY HX 1956 VAG HYST 250 GM/< W/RMVL TUBE&/OVARY 1996 uterine prolapse, hyst. bilateral oophorectomy VITRECTOMY MECHANICAL PARS PLANA Left ALLERGIES Shellfish Containing Products, Penicillamine, Benadryl [Diphenhydramine Hcl], Cats, Cipro[Ciprofloxacin], Dust, Ketamine, Mold, Penicillins, Shellfish, Spiriva With Handihaler [Tiotropium [place]], Sulfa (Sulfonamide Antibiotics), Symbicort [Budesonide-Formoterol], and Tetanus Toxoid Adsorbed MEDICATIONS LORazepam (ATIVAN) 2 mg tab Take 1 tablet by mouth daily at bedtime for 90 days. levothyroxine (SYNTHROID) 88 mcg tablet Take 1 tablet by mouth five times a week. Mondays thru Fridays. None on Saturdays and Sundays. meloxicam (MOBIC) 15 mg tablet Take 1 tablet by mouth once daily. baclofen 5 mg tablet Take 1 tablet by mouth two times a day. pantoprazole DR (PROTONIX) 20 mg tablet Take 2 tablets by mouth once daily. PARoxetine (PAXIL) 40 mg tablet Take 1 tablet by mouth once daily. amLODIPine (NORVASC) 5 mg tablet Take 1 tablet by mouth once daily. lisinopril (ZESTRIL) 40 mg tablet Take 1 tablet by mouth once daily. lamoTRIgine (LAMICTAL) 25 mg tablet Take 1 tablet by mouth once daily. aspirin, enteric coated (ASPIRIN, ENTERIC COATED) 81 mg EC tablet Take 1 tablet by mouth once daily. acetaminophen (TYLENOL) 500 mg tablet Take 2 tablets by mouth every 8 hours as needed for pain. vibegron (GEMTESA) 75 mg tablet Take 1 tablet by mouth once daily. Prescribed by Dr. Hansen ergocalciferol 50,000 unit capsule (VITAMIN D2, DRISDOL) Take 1 capsule by mouth every 4 weeks. brimonidine-timolol (COMBIGAN) 0.2-0.5 % ophthalmic solution Use 1 Drop in the left eye twice daily. latanoprost (XALATAN) 0.005 % ophthalmic solution Use 1 Drop in both eyes daily at bedtime. BREO ELLIPTA 100-25 mcg/dose inhaler vit C/E/zinc ox/trevor/lut/zeax (ICAPS AREDS2 ORAL) loratadine (CLARITIN REDITABS) 10 mg dissolvable tablet Take 1 tablet by mouth once daily as needed(allergies). DULCOLAX, BISACODYL, ORAL Take 1 tablet by mouth as needed. polyethylene glycol 3350 (MIRALAX, GLYCOLAX) 17 gram/dose powder Drink a mix of 1 scoop in 8oz of water/beverage once daily as needed for constipation. cyanocobalamin (VITAMIN B-12) 1,000 mcg tab Take 1,000 mcg by mouth once daily. albuterol HFA (VENTOLIN HFA) 90 mcg/actuation inhaler Inhale 2 Puffs as instructed every 4 hours asneeded for Wheezing/Shortness of Breath. MULTIVITAMIN TAB Take one(1) tablet daily. FAMILY HISTORY Problem Relation Age of Onset Cancer Mother Arthritis Mother Kidney Disease Mother Cancer Father lung Social History Tobacco Use Smoking status: Former Packs/day: 0.50 Years: 10.00 Additional pack years: 0.00 Total pack years: 5.00 Types: Cigarettes Quit date: 05/14/1965 Years since quittin.9 Passive exposure: Past Smokeless tobacco: Never Vaping Use Vaping Use: Never used Substance Use Topics Alcohol use: Yes Comment: 1/2 glass of wine twice per month Drug use: No BP 130/72 (BP Site: Left Arm, BP Position: Sitting, BP Cuff Size: Large Adult) Pulse 60 Resp 12 Ht 157.5 cm (5' 2) Wt 75.8 kg (167 lb) SpO2 95% BMI 30.54 kg/m Physical Exam Vitals reviewed. Constitutional: Appearance: Normal appearance. Cardiovascular: Rate and Rhythm: Normal rate and regular rhythm. Heart sounds: Normal heart sounds. No murmur heard. Pulmonary: Effort: Pulmonary effort is normal. Breath sounds: Normal breath sounds. No wheezing, rhonchi or rales. Musculoskeletal: Right upper arm: No swelling, deformity or tenderness. Right elbow: No swelling or deformity. Normal range of motion. No tenderness. Arms: Skin: General: Skin is warm and dry. Neurological: Mental Status: She is alert. Psychiatric: Mood and Affect: Mood normal. Health maintenance reviewed with patient: RSV Vaccine(1 - 1-dose 60+ series) Never done Covid-19 Vaccine(4 - season) due on 09/30/2024 Influenza Vaccine(1) due on 05/08/2024 Diabetes Screening due on 10/05/2026 DTaP,Tdap,Td Vaccine(3 - Td or Tdap) due on 05/21/2033 Bone Density Screening Completed Spirometry Completed Advance Directive Discussion Completed Shingrix Vaccine Completed Pneumococcal Vaccine: 65+ Completed DATA REVIEWED: Most recent labs ASSESSMENT/PLAN: 1. Essential hypertension - ICD9: 401.9, ICD10: I10 (primary diagnosis) - Controlled - Continue current medications - Recommend home blood pressure monitoring, to bring results to next visit - Encouraged sodium restriction, DASH or Mediterranean diet - Recommend regular aerobic exercise 2. Fall from slip, trip, or stumble, initial encounter - ICD9: E885.9, ICD10: W01.0XXA Fall three weeks ago. No significant injury. 3. Balance problem - ICD9: 781.99, ICD10: R26.89 Recommend scheduling with PT as ordered by neurologist months ago, she is finally agreeable to scheduling 4. Asthmatic bronchitis , chronic (HCC) - ICD9: 493.20, ICD10: J44.89 Managed by pulmonology 5. Acquired hypothyroidism - ICD9: 244.9, ICD10: E03.9 Continue current dose of levothyroxine 6. Anxiety - ICD9: 300.00, ICD10: F41.9 stable Prescription instructions reviewed with patient as applicable. Potential red flag symptoms discussed with the patient. Reviewed appropriate action plan to take if red flag symptoms occur. Patient agreeable to treatment plan. Dia Lopez APRN.MICROBIOLOGICAL LABORATORY TECHNICIAN documented in [facility] Telephone encounter Note * Telephone Encounter - Kailey Caraballo LPN - 03/02/2024 8:41 AM EDT Patient has been identified by name and date of : Yes Patient phones for refill(s): Requested Prescriptions Pending Prescriptions Disp Refills LORazepam (ATIVAN) 2 mg tab 30 tablet 2 Sig: Take 1 tablet by mouth daily at bedtime for 90 days. Date of last office visit in primary care: 10/14/2023 Date of next office visit in primary care: 03/30/2024 Please advise. Thank you. Kailey Caraballo LPN. [facility]06-26-2024 Miscellaneous Notes* Telephone Encounter - Kailey Caraballo LPN - 03/02/2024 8:41 AM EDT Patient has been identified by name and date of : Yes Patient phones for refill(s): Requested Prescriptions Pending Prescriptions Disp Refills LORazepam (ATIVAN) 2 mg tab 30 tablet 2 Sig: Take 1 tablet by mouth daily at bedtime for 90 days. Date of last office visit in primary care: 10/14/2023 Date of next office visit in primary care: 03/30/2024 Please advise. Thank you. Kailey Caraballo LPN. documented in this encounterK[facility]06-10-2024 Telephone encounter Note * Telephone Encounter - Norma Wong RN - 02/15/2024 11:36 AM EDT Patient returned call and given provider's message below and patient verbalized understanding. Gee Wong RN [facility]06-10-[facility]24 Miscellaneous Notes* Telephone Encounter - Norma Wong RN - 02/15/2024 11:36 AM EDT Patient returned call and given provider's message below and patient verbalized understanding. Gee Wong RN * Telephone Encounter - Yessenia Perez LPN - 02/15/2024 9:40 AM EDT Message left for pt to return call to a nurse. * Telephone Encounter - Ken Contreras MD - 02/13/2024 12:22 PM EDT ASSESSMENT/PLAN: 1. Acquired hypothyroidism - ICD9: 244.9, ICD10: E03.9 Decrease dose. Requested Prescriptions Signed Prescriptions Disp Refills levothyroxine (SYNTHROID) 88 mcg tablet 66 tablet 1 Sig: Take 1 tablet by mouth five times a week. Mondays thru Fridays. None on Saturdays and Sundays. Authorizing Provider: KEN CONTRERAS MD * Telephone Encounter - Yessenia Perez LPN - 02/12/2024 3:22 PM EDT Called pt and pharmacy verified. She report she has been fatigued for some time. Cardiology ordered the labs. That note is too in scanned documents. * Telephone Encounter - Cindy Pathak LPN - 02/12/2024 3:07 PM EDT Patient called to alert PCP of low TSH that was resulted 02/11/2024 at [facility]. Current dose of levothyroxine is 88 MCG 6 days a week. documented in this encounterK[facility]06-10-2024 Telephone encounter Note * Telephone Encounter - Yessenia Perez LPN - 02/15/2024 9:40 AM EDT Message left for pt to return call to a nurse. [facility]-08-[facility] Telephone encounter Note* Telephone Encounter - Ken Contreras MD - 02/13/2024 12:22 PM EDT ASSESSMENT/PLAN: 1. Acquired hypothyroidism - ICD9: 244.9, ICD10: E03.9 Decrease dose. Requested Prescriptions Signed Prescriptions Disp Refills levothyroxine (SYNTHROID) 88 mcg tablet 66 tablet 1 Sig: Take 1 tablet by mouth five times a week. Mondays thru Fridays. None on Saturdays and Sundays. Authorizing Provider: KEN CONTRERAS MD [facility]06-07-[facility]24 Telephone encounter Note* Telephone Encounter - Yessenia Perez LPN - 02/12/2024 3:22 PM EDT Called pt and pharmacy verified. She report she has been fatigued for some time. Cardiology ordered the labs. That note is too in scanned documents. [facility]-07-[facility] Telephone encounter Note* Telephone Encounter - Cindy Pathak LPN - 02/12/2024 3:07 PM EDT Patient called to alert PCP of low TSH that was resulted 02/11/2024 at [facility]. Current dose of levothyroxine is 88 MCG 6 days a week. [facility]24 NoteHNO ID: [id number] Author: JOSE DIAZ CCC-TERMITE CONTROL SERVICE REPRESENTATIVE Service: ? Author Type: Speech Language Pathologist Type: Progress Notes Filed: 01/27/2024 16:46 Note Text: Episode Visit Count: 1 Therapist That Will Accept/Oversee The Plan Of Care: Jennifer Start of Care Date: 01/27/24 Onset Date: 09/07/23 (- fall in 09/2023) Plan of Care Certification Date: 01/27/24 Next Certification Due Date: 02/26/24 Patient Identified by Name and Date of : Yes [facility] SPEECH and COGNITIVE LINGUISTIC EVALUATION PLAN OF CARE: Impression: Functional communication without limitations in: Speech Communication deficits identified: Cognitive deficits RECOMMENDATION: TERMITE CONTROL SERVICE REPRESENTATIVE Recommendations: Outpatient Speech Therapy Results and Recommendations Discussed With: Patient Prognosis: Excellent Excellent: within-session changes at evaluation, good support system/ coping skills, current objective clinical presentation Goals for Episode of Care: created on 01/27/2024 through 02/26/24 COGNITIVE GOALS - Complete visual reasoning/organization tasks with 90% accuracy given occasional assist. - Improve immediate and short term/prospective memory to 90% accuracy with use of compensatory strategies with occasional assist/cues. - Improve working memory to WFL during complex cognitive tasks with 90% using compensatory strategies in order to recall the steps taken during a cognitive process. - Improve word finding skills to 90% accuracy with use of compensatory strategies with occasional assist/cues All goals to target the patient's overall ability to facilitate functional cognitive linguistic skills. Planned Interventions, Frequency, and Duration: Planned Treatment Interventions: Cognitive-Linguistic Training (97805, [id number], 43041), Patient / Caregiver Education/ Training Current Frequency: 1x/week Duration: 4 weeks PLAN FOR NEXT VISIT: - memory strategies; wprd recall/word finding Patient demonstrates good understanding of plan of care and treatment. The above goals and plan of care were discussed and agreed upon by patient/family. SUBJECTIVE: Geoffrey Nassar is a 88 year old female seen today for a diagnostic. - concussion/brain bleed; - increased word finding and naming difficulties worse since fall - Pt note ear difficulties/clogged; Physician follow up completed per Pt report - its hard to remember things Patient Goals: better memory skills Prior Functional Level: Within Functional Limits OBJECTIVE MEASURES WITH LEVEL OF FUNCTION: Hearing Deficits: Other: See Comment (- plugged ear - left) Portions of the following standardized testing were utilized in the evaluation of the patient: [place] Test for Differential Diagnosis of Aphasia, [place] Dysarthria Assessment, and Clinician directed non-standardized probes along with portions of standardized assessments were utilized to assess patient. . Current Status Oral Hygiene: Clear, moist oral cavity Dentition: Denture-Upper Full, Dentures-Lower Partial, Retains Natural Dentition (6 own teeth) Current Feeding Method: Oral Current Diet Textures: Regular Consistency, Thin Liquids IDDSI Level 0 Current Level Of Communication: Verbal Current Management Of Secretions: Strong cough, Able to self-manage Oral Motor Exam: Within Functional Limits Speech/Voice/Language Speech Production: Within Functional Limits COGNITIVE-LINGUISTIC SKILLS Cognition Cognitive Status: Within Functional Limits For Current Session Except Cognitive Deficits: Memory Deficits, Executive Function Deficit Memory Deficits: Functional, Immediate, Short Term Functional Memory Comments: min Immediate Memory Comments: mild Short Term Memory Comments: mild Executive Function Deficits: Problem Solving, Reasoning/Inferences Problem Solving Comments: mild Reasoning/Inferences Comments: mild Cognitive Clinical Tests and Screens: SLUMS SLUMS Level of Education: High school Orientation (week): 1 Orientation (year): 1 Orientation (state): 1 Calculations: 1 Namin Short-Term Memory: 3 Attention/Sequencin Visual-Spatial Skills (clock): 4 Visual-Spatial Skills: 2 Attention/Memory: 6 SLUMS Total Score ( /30): 24 Education: Education Learning Preferences: Performance, Explanation, Demonstration, Printed Materials Barriers: None Learning/Educational Needs: Compensatory Strategies, Plan of Care, Rehabilitation Techniques and Procedures, Cognitive Skills Education Provided: Yes, see treatment interventions for education provided Education Provided To: Patient Education Mode/Type: Demonstration, Explanation/Discussion, Literature/Printed Materials, Performance, Teach Back Response to Education/Teach Back: States/Identifies, Return Demonstration, Requires Review/Additional Education TREATMENT: Evaluation: Eval Sound Production with Language Expression and Ground Instructor Advanced (85006) Speech/Language Therapy (more content not included)...[facility] [id number] History of Present illness Narrative* Jose Diaz CCC-TERMITE CONTROL SERVICE REPRESENTATIVE - 01/27/2024 3:31 PM EDT Episode Visit Count: 1 Therapist That Will Accept/Oversee The Plan Of Care: Jennifer Start of Care Date: 01/27/24 Onset Date: 09/07/23 (- fall in 09/2023) Plan of Care Certification Date: 01/27/24 Next Certification Due Date: 02/26/24 Patient Identified by Name and Date of : Yes [facility] SPEECH and COGNITIVE LINGUISTIC EVALUATION PLAN OF CARE: Impression: Functional communication without limitations in: Speech Communication deficits identified: Cognitive deficits RECOMMENDATION: TERMITE CONTROL SERVICE REPRESENTATIVE Recommendations: Outpatient Speech Therapy Results and Recommendations Discussed With: Patient Prognosis: Excellent Excellent: within-session changes at evaluation, good support system/ coping skills, current objective clinical presentation Goals for Episode of Care: created on 01/27/2024 through 02/26/24 COGNITIVE GOALS - Complete visual reasoning/organization tasks with 90% accuracy given occasional assist. - Improve immediate and short term/prospective memory to 90% accuracy with use of compensatory strategies with occasional assist/cues. - Improve working memory to WFL during complex cognitive tasks with 90% using compensatory strategies in order to recall the steps taken during a cognitive process. - Improve word finding skills to 90% accuracy with use of compensatory strategies with occasional assist/cues All goals to target the patient's overall ability to facilitate functional cognitive linguistic skills. Planned Interventions, Frequency, and Duration: Planned Treatment Interventions: Cognitive-Linguistic Training ([id number], [id number], [id number]), Patient / Caregiver Education/ Training Current Frequency: 1x/week Duration: 4 weeks PLAN FOR NEXT VISIT: - memory strategies; wprd recall/word finding Patient demonstrates good understanding of plan of care and treatment. The above goals and plan of care were discussed and agreed upon by patient/family. SUBJECTIVE: Geoffrey Nassar is a 88 year old female seen today for a diagnostic. - concussion/brain bleed; - increased word finding and naming difficulties worse since fall - Pt note ear difficulties/clogged; Physician follow up completed per Pt report - its hard to remember things Patient Goals: better memory skills Prior Functional Level: Within Functional Limits OBJECTIVE MEASURES WITH LEVEL OF FUNCTION: Hearing Deficits: Other: See Comment (- plugged ear - left) Portions of the following standardized testing were utilized in the evaluation of the patient: [place] Test for Differential Diagnosis of Aphasia, [place] Dysarthria Assessment, and Clinician directed non-standardized probes along with portions of standardized assessments were utilized to assesspatient. . Current Status Oral Hygiene: Clear, moist oral cavity Dentition: Denture-Upper Full, Dentures-Lower Partial, Retains Natural Dentition (6 own teeth) Current Feeding Method: Oral Current Diet Textures: Regular Consistency, Thin Liquids IDDSI Level 0 Current Level Of Communication: Verbal Current Management Of Secretions: Strong cough, Able to self-manage Oral Motor Exam: Within Functional Limits Speech/Voice/Language Speech Production: Within Functional Limits COGNITIVE-LINGUISTIC SKILLS Cognition Cognitive Status: Within Functional Limits For Current Session Except Cognitive Deficits: Memory Deficits, Executive Function Deficit Memory Deficits: Functional, Immediate, Short Term Functional Memory Comments: min Immediate Memory Comments: mild Short Term Memory Comments: mild Executive Function Deficits: Problem Solving, Reasoning/Inferences Problem Solving Comments: mild Reasoning/Inferences Comments: mild Cognitive Clinical Tests and Screens: SLUMS SLUMS Level of Education: High school Orientation (week): 1 Orientation (year): 1 Orientation (state): 1 Calculations: 1 Namin Short-Term Memory: 3 Attention/Sequencin Visual-Spatial Skills (clock): 4 Visual-Spatial Skills: 2 Attention/Memory: 6 SLUMS Total Score ( /30): 24 Education: Education Learning Preferences: Performance, Explanation, Demonstration, Printed Materials Barriers: None Learning/Educational Needs: Compensatory Strategies, Plan of Care, Rehabilitation Techniques and Procedures, Cognitive Skills Education Provided: Yes, see treatment interventions for education provided Education Provided To: Patient Education Mode/Type: Demonstration, Explanation/Discussion, Literature/Printed Materials, Performance, Teach Back Response to Education/Teach Back: States/Identifies, Return Demonstration, Requires Review/Additional Education TREATMENT: Evaluation: Eval Sound Production with Language Expression and Ground Instructor Advanced (04130) Speech/Language Therapy (38360): Skilled Intervention: Educated and instructed patient on compensatory strategies for word-finding, complex reasoning, categorization, and thought organization Educated and instructed patient on memory recall strategies such as verbal repetition, visualization, association, chunking, graphic skills, and designated routine. Provided multi-modality cues in simple reasoning, sequencing, and visual reasoning / organization. Current Home Program: - memory strategies Billing: Eval Sound Production with Language Expression and Ground Instructor Advanced ([id number]) and Speech Treatment (40925) Total time / Length of visit: 60 minutes Session Start Time : 1530 Session Stop Time : 1630 JACOB SelfTERMITE CONTROL SERVICE REPRESENTATIVE documented in this encounterK[facility]05-16-2024 History of Present illness Narrative* Michelle Vazquez APRN.MICROBIOLOGICAL LABORATORY TECHNICIAN - 01/21/2024 2:00 PM EDT NEUROSURGERY FOLLOW UP OFFICE NOTE Michelle Vazquez APRN.CNP Date of visit: January 21, 2024 Patient Name: Ms.Sally Barbie Nassar Date of : 1935 Current Age: [age] year old Sex: female MRN/E# [id number] Last Office Visit: 10/22/2023 CHIEF COMPLAINT: Patient presents with: Established Patient HPI: The patient presents for a follow up without new imaging for evaluation. This is an 88-year-old female with a PMHx of diverticulosis, HTN, PE, pacemaker, asthma, umbilical hernia, GERD, hypothyroidism, degenerative disc disease (lumbar) tubular adenoma of the colon who was seen for consult at [facility] on 10/03/2023 after transfer from an outside ED by Dr. Holder. Patient was seen after a [place] in [facility] after tripping over a curb causing her to strike her head. She reported taking low-dose ASA daily. Upon further evaluation the patient reported that she had fallen 3 times since May 2023 and had been experiencing headaches and dizziness. She denied any LOC. Workup was completed and de monstrated multifocal traumatic subarachnoid hemorrhages. ASA was placed on hold and reversed with DDAVP, she was started on a short course of Keppra for seizure prophylaxis and monitored in the ICU.Repeat imaging remained stable and no neurosurgical intervention was indicated. Recommendation was to continue to hold ASA and follow-up in [address] She was last seen in the office on 10/22/23 and reported that she was doing well since hospital discharge. She denied headache, visual changes, speech deficits, seizure activity, motor or sensory deficits. Low-dose aspirin remained on hold. Neurologically she was intact on exam without focal deficitwith a slight compensated gait. CT was reviewed and compared to previous scans. Imaging showed no evidence of the previously noted subarachnoid hemorrhage along the left parietal lobe and left parietal operculum. There was no evidence of acute hemorrhage noted. She was advised to continue to hold low-dose ASA which she was taking for a previous TIA for a total of 4 weeks post trauma. She was toldshe then may resume the ASA if medically necessary. Recommendation was to follow-up in about 2 and half to 3 months for a routine evaluation prompting her visit today. Since last visit she states sheis overall doing well. She denies any new or concerning issues. She presents for evaluation and plan of care. SYMPTOMS: None PREVIOUS CONSERVATIVE TREATMENTS: Keppra -Short course PREVIOUS SURGERY: None SURGICAL RISK: Smoker: Former -quit 05/14/1965 Diabetic: No Anticoagulants / Antiplatelets: ASA Occupation: N/A PAIN EVALUATION No data found in the last 1 encounters. PAST MEDICAL HISTORY Diagnosis Date Bradycardia 01/18/2021 Bronchiectasis without complication (HCC) 11/27/2009 Dr. Jaswant Miller, pulmonary. 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 Diverticulosis of small intestine (without mention of hemorrhage) Enthesopathy of hip region 07/08/2011 Essential hypertension 05/25/2008 Extrinsic asthma 01/29/2006 Fall 10/03/2023 Family history of malignant neoplasm of gastrointestinal tract liver cancer Foraminal stenosis of cervical region 01/30/2012 Gait disturbance 01/29/2017 Gastroesophageal reflux disease with esophagitis 05/13/2013 HERNIA UMBILICAL 12/19/2005 Hypothyroidism 03/17/2005 Irritable bowel syndrome with both constipation and diarrhea 09/23/2016 Non-STEMI (non-ST elevated myocardial infarction) (HCC) 11/19/2016 setting of acute bilateral pulmonary embolism. Oral murray 10/29/2020 Pacemaker 07/25/2021 Pulmonary embolism with acute cor pulmonale (HCC) 11/24/2016 She was initially thought to have a NSTEMI, but was found to be a PE with Right Strain and NOT a NSTEMI. Pulmonary nodule 01/08/2017 SAH (subarachnoid hemorrhage) (HCC) 10/03/2023 Tubular adenoma of colon 12/29/2017 PAST SURGICAL HISTORY Procedure Laterality Date CHOLECYSTECTOMY 1998 COLONOSCOPY FLX DX W/COLLJ SPEC WHEN PFRMD 12/18/2005 COLONOSCOPY FLX DX W/COLLJ SPEC WHEN PFRMD 09/17/2011 COLONOSCOPY FLX DX W/COLLJ SPEC WHEN PFRMD 11/30/2017 Colonoscopy - adenomatous polyp-5 year follow-up EGD 05/29/2017 LASER IRIDOPLASTY OS (LEFT EYE) Left LASER IRIDOTOMY OD (RIGHT EYE) Right PACEMAKER INSERTSION 05/29/2021 dual lead PAST SURGICAL HISTORY OF 09/2007 jacinto eyelid removal dropping skin PAST SURGICAL HISTORY OF Bilateral 11/24/2011 cataract removal 11/19/11, 11/24/11 SLING OPER STRES INCONTINENCE 2004 TONSILLECTOMY HX 1957 VAG HYST 250 GM/< W/RMVL TUBE&/OVARY 1996 uterine prolapse, hyst. bilateral oophorectomy VITRECTOMY MECHANICAL PARS PLANA Left FAMILY HISTORY Problem Relation Age of Onset Cancer Mother Arthritis Mother Kidney Disease Mother Cancer Father lung ALLERGIES Allergen Reactions Shellfish Containin* Unknown Penicillamine Unknown Benadryl [Diphenhyd* Rash Cats Cipro [Ciprofloxaci* Itching Dust Ketamine Unknown Mold Penicillins Rash Shellfish Shortness of Breath Spiriva With Handih* Intolerance not help Sulfa (Sulfonamide * GI Upset Symbicort [Budesoni* Intolerance tremor,shaky Tetanus Toxoid Adso* Intolerance arm swell Current Outpatient Medications Medication Sig Dispense Refill LORazepam (ATIVAN) 2 mg tab Take 1 tablet by mouth daily at bedtime for 90 days. 30 tablet 2 meloxicam (MOBIC) 15 mg tablet Take 1 tablet by mouth once daily. 90 tablet 3 baclofen 5 mg tablet Take 1 tablet by mouth two times a day. 180 tablet 3 levothyroxine (SYNTHROID) 88 mcg tablet TAKE 1 TABLET DAILY EXCEPT DO NOT TAKE ON SUNDAYS. TAKE ON AN EMPTY STOMACH [address] (PROTONIX) 20 mg tablet Take 2 tablets by mouth once daily. 180 tablet 3 PARoxetine (PAXIL) 40 mg tablet Take 1 tablet by mouth once daily. 90 tablet 3 amLODIPine (NORVASC) 5 mg tablet Take 1 tablet by mouth once daily. 90 tablet 3 lisinopril (ZESTRIL) 40 mg tablet Take 1 tablet by mouth once daily. 90 tablet 3 lamoTRIgine (LAMICTAL) 25 mg tablet Take 1 tablet by mouth once daily. 90 tablet 3 aspirin, enteric coated (ASPIRIN, ENTERIC COATED) 81 mg EC tablet Take 1 tablet by mouth once daily. acetaminophen (TYLENOL) 500 mg tablet Take 2 tablets by mouth every 8 hours as needed for pain. vibegron (GEMTESA) 75 mg tablet Take 1 tablet by mouth once daily. Prescribed by Dr. Hansen ergocalciferol 50,000 unit capsule (VITAMIN D2, DRISDOL) Take 1 capsule by mouth every 4 weeks. 3 capsule 3 brimonidine-timolol (COMBIGAN) 0.2-0.5 % ophthalmic solution Use 1 Drop in the left eye twice daily. 5 mL 1 latanoprost (XALATAN) 0.005 % ophthalmic solution Use 1 Drop in both eyes daily at bedtime. 5 mL 2 BREO ELLIPTA 100-25 mcg/dose inhaler vit C/E/zinc ox/trevor/lut/zeax (ICAPS AREDS2 ORAL) loratadine (CLARITIN REDITABS) 10 mg dissolvable tablet Take 1 tablet by mouth once daily as needed(allergies). DULCOLAX, BISACODYL, ORAL Take 1 tablet by mouth as needed. polyethylene glycol 3350 (MIRALAX, GLYCOLAX) 17 gram/dose powder Drink a mix of 1 scoop in 8oz of water/beverage once daily as needed for constipation. 1 Bottle 0 cyanocobalamin (VITAMIN B-12) 1,000 mcg tab Take 1,000 mcg by mouth once daily. albuterol HFA (VENTOLIN HFA) 90 mcg/actuation inhaler Inhale 2 Puffs as instructed every 4 hours asneeded for Wheezing/Shortness of Breath. 1 Inhaler 5 MULTIVITAMIN TAB Take one(1) tablet daily. 0 No current facility-administered medications for this visit. REVIEW OF SYSTEMS: Review of Systems Constitutional: Negative for chills, diaphoresis (Negative for night sweats.) and fever. HENT: Negative for ear discharge and rhinorrhea. Eyes: Negative for discharge. Respiratory: Negative for cough, shortness of breath and wheezing. Cardiovascular: Negative for chest pain, palpitations and leg swelling. Gastrointestinal: Negative for constipation, diarrhea, nausea and vomiting. Endocrine: Negative for cold intolerance and heat intolerance. Genitourinary: Negative for frequency. Negative for urinary incontinence and urinary retention. Musculoskeletal: Positive for gait problem. Negative for back pain, joint swelling, myalgias and neck pain. Skin: Negative for rash (Negative for hives and skin lesions.). Allergic/Immunologic: Negative for environmental allergies and food allergies. Negative for contact allergy, seasonal allergies. Neurological: Negative for dizziness, seizures, syncope, weakness, light- headedness, numbness (Negative for numbness in extremities.) and headaches. Hematological: Does not bruise/bleed easily. Psychiatric/Behavioral: The patient is not nervous/anxious. Negative for depression. OBJECTIVE: BP 115/75 Pulse 59 Ht 5' 2 (1.58m) Wt 168 lb 14 oz (76.6kg) SpO2 92% BMI 30.88 kg/(m^2). PHYSICAL EXAM: Mental State : Alert, memory function unremarkable. Attention span and concentration normal for patient's age. Speech normal, no receptive or expressive speech deficit. Recent and remote memory normal. Orientation : Oriented to person, place and time. Higher Cortical Function : Intact speech and language. Spontaneous speech and comprehension normal.Fund of knowledge intact for pt level of education. Cranial Nerves : II: No visual field cut no blurring, Makes and sustains eye contact III, IV, : Normal, no double vision or drooping. Pupils equal and reactive to light. Extraocularmuscles intact. No nystagmus V: Normal sensation on the face, normal jaw movements VII: No paresis on either side VIII: No gross hearing deficit IX: Good and equal shoulder shrugs XII: Tongue midline, no fasciculations Sensory: SILT. Normal Sensation in upper and lower extremities and trunk to touch and noxious stimuli. Motor: Normal muscle tone and bulk. No tremor or uncontrollable movements. No spasticity or tremor. Strength: Upper Extremities : R L Deltoid 5/5 5/5 Biceps 5/5 5/5 Triceps 5/5 5/5 Wrist Ext 5/5 5/5 Wrist Flx 5/5 5/5 Hand Int 5/5 5/5 Lower Extremities : Hip Flexors 5/5 5/5 Hip Extensors 5/5 5/5 Hip Abductors 5/5 5/5 Straight leg Neg Neg Ankle dorsiflex 5/5 5/5 Ankle Plantar 5/5 5/5 Reflexes : Biceps 2+ 2+ Triceps 2+ 2+ Wrist 2+ 2+ Patellar 2+ 2+ Achilles 2+ 2+ Cerebellar Function : Normal finger to nose. Normal rapid alternating movements. No ataxia. Negative Romberg. Gait and Station: Slightly compensated gait. Utilizes cane as an assistive device. Pulmonary: Lungs without cough, audible wheeze. Respirations unlabored. Cardiac: Regular rate and rhythm. No murmer, gallop or rub. DATA REVIEW: IMAGING STUDIES: No new imaging Personal review of medical records: I reviewed with the patient, history, physical exam, the imagesand the chart. ASSESSMENT/PLAN: (I60.9) SAH (subarachnoid hemorrhage) (HCC) (primary encounter diagnosis) Comment: The patient presents for follow-up. She reports that she is overall doing well and denies any specific complaints or concerns. She does continue to have balance issues but has not fallen. She has not scheduled an appointment with PT OT yet and we discussed this. She will attempt to get scheduled in the next few days. Otherwise she is neurologically intact without focal deficit. I discussed that continued evaluation is indicated and would like her to follow-up in 3 months for a routine visit. In the interim should she develop any new or concerning issues she should contact the office or present to the ED for further workup. All of her questions and concerns were addressed in detail. Plan: 3-month follow-up MIKEL Abernathy Neurosurgery Nurse Practitioner [facility] FOLLOW UP: Return in about 3 months (around 04/22/2024) for routine follow up. Please Note: This note has been partially generated using [employer], a speech recognition software program, and may contain errors including punctuation, grammar, spelling, gender, and inappropriate words or phrases that pertain to the system. documented in this encounterK[facility]tering [facility]05-16-2024 NoteHNO ID: [id number] Author: MICHELLE VAZQUEZ APRN.CNP Service: ? Author Type: Nurse Practitioner Type: Progress Notes Filed: 01/21/2024 14:37 Note Text: NEUROSURGERY FOLLOW UP OFFICE NOTE Michelle Vazquez APRN.CNP Date of visit: January 21, 2024 Patient Name: Ms.Sally Barbie Nassar Date of : 1935 Current Age: [age] year old Sex: female MRN/E# [id number] Last Office Visit: 10/22/2023 CHIEF COMPLAINT: Patient presents with: Established Patient HPI: The patient presents for a follow up without new imaging for evaluation. This is an 88-year-old female with a PMHx of diverticulosis, HTN, PE, pacemaker, asthma, umbilical hernia, GERD, hypothyroidism, degenerative disc disease (lumbar) tubular adenoma of the colon who was seen for consult at [facility] on 10/03/2023 after transfer from an outside ED by Dr. Holder. Patient was seen after a fall in her driveway after tripping over a curb causing her to strike her head. She reported taking low-dose ASA daily. Upon further evaluation the patient reported that she had fallen 3 times since May 2023 and had been experiencing headaches and dizziness. She denied any LOC. Workup was completed and demonstrated multifocal traumatic subarachnoid hemorrhages. ASA was placed on hold and reversed with DDAVP, she was started on a short course of Keppra forseizure prophylaxis and monitored in the ICU. Repeat imaging remained stable and no neurosurgical intervention was indicated. Recommendation was to continue to hold ASA and follow-up in [address] She was last seen in the office on 10/22/23 and reported that she was doing well since hospital discharge. She denied headache, visual changes, speech deficits, seizure activity, motor or sensory deficits. Low-dose aspirin remained on hold. Neurologically she was intact on exam without focal deficit with a slight compensated gait. CT was reviewed and compared to previous scans. Imaging showed no evidence of the previously noted subarachnoid hemorrhage along the left parietal lobe and left parietal operculum. There was no evidence of acute hemorrhage noted. She was advised to continue to hold low-dose ASA which she was taking for a previous TIA for a total of 4 weeks post trauma. She was told she then may resume the ASA if medically necessary. Recommendation was to follow-up in about 2 and half to 3 months for a routine evaluation prompting her visit today. Since last visit she states she is overall doing well. She denies any new or concerning issues. She presents for evaluation and plan of care. SYMPTOMS: None PREVIOUS CONSERVATIVE TREATMENTS: Keppra -Short course PREVIOUS SURGERY: None SURGICAL RISK: Smoker: Former -quit 05/14/1965 Diabetic: No Anticoagulants / Antiplatelets: ASA Occupation: N/A PAIN EVALUATION No data found in the last 1 encounters. PAST MEDICAL HISTORY Diagnosis Date Bradycardia 01/18/2021 Bronchiectasis without complication (HCC) 11/27/2009 Dr. Jaswant Miller, pulmonary. 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 Diverticulosis of small intestine (without mention of hemorrhage) Enthesopathy of hip region 07/08/2011 Essential hypertension 05/25/2008 Extrinsic asthma 01/29/2006 Fall 10/03/2023 Family history of malignant neoplasm of gastrointestinal tract liver cancer Foraminal stenosis of cervical region 01/30/2012 Gait disturbance 01/29/2017 Gastroesophageal reflux disease with esophagitis 05/13/2013 HERNIA UMBILICAL 12/19/2005 Hypothyroidism 03/17/2005 Irritable bowel syndrome with both constipation and diarrhea 09/23/2016 Non-STEMI (non-ST elevated myocardial infarction) (HCC) 11/19/2016 setting of acute bilateral pulmonary embolism. Oral murray 10/29/2020 Pacemaker 07/25/2021 Pulmonary embolism with acute cor pulmonale (HCC) 11/24/2016 She was initially thought to have a NSTEMI, but was found to be a PE with Right Strain and NOT a NSTEMI. Pulmonary nodule 01/08/2017 SAH (subarachnoid hemorrhage) (HCC) 10/03/2023 Tubular adenoma of colon 12/29/2017 PAST SURGICAL HISTORY Procedure Laterality Date CHOLECYSTECTOMY 1998 COLONOSCOPY FLX DX W/COLLJ SPEC WHEN PFRMD 12/18/2005 COLONOSCOPY FLX DX W/COLLJ SPEC WHEN PFRMD 09/17/2011 COLONOSCOPY FLX DX W/COLLJ SPEC WHEN PFRMD 11/30/2017 Colonoscopy - adenomatous polyp-5 year follow-up EGD 05/29/2017 LASER IRIDOPLASTY OS (LEFT EYE) Left LASER IRIDOTOMY OD (RIGHT EYE) Right PACEMAKER INSERTSION 05/29/2021 dual lead PAST SURGICAL HISTORY OF 09/2007 jacinto eyelid removal dropping skin PAST SURGICAL HISTORY OF Bilateral 11/24/2011 cataract removal 11/19/11, 11/24/11 SLING OPER STRES INCONTINENCE 2004 TONSILLECTOMY HX 1957 VAG HYST 250 GM/< W/RMVL TUBEAND/OVARY 1996 uterine prolapse, hyst. bilateral oophorectomy VITRECTOMY MECHANICAL PARS PLANA Left FAMILY HISTORY (more content not included)...[facility]05-01-2024 Instructions* Patient Instructions* Ailyn Bonner, TITLE INSURANCE SALES REPRESENTATIVE.MICROBIOLOGICAL LABORATORY TECHNICIAN - 01/06/2024 3:13 PM EDT Referral placed for sleep medicine. Please call [phone] and schedule an appt with Dr. Kaya Cartwright- sleep medicine for evaluation. Referral placed for speech therapy. [place] documented in this encounterK[facility]05-01-2024 History of Present illness Narrative* Ailyn Bonner APRN.CNP - 01/06/2024 2:48 PM EDT IMPRESSION: Geoffrey Nassar is a 88 year old right handed female. Here today for follow up for TBI clinic. Denies any new concerns with today's appt. (Z87.820) Personal history of traumatic brain injury (primary encounter diagnosis) (G47.30) Sleep apnea, unspecified type (R53.83) Fatigue, unspecified type (R13.0) Aphagia (Z74.09) Impaired functional mobility, balance, gait, and endurance 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 Personal history of traumatic brain injury - ICD9: V15.52, ICD10: Z87.820 (primary diagnosis) - CONSULT TO SPEECH THERAPY 2. Sleep apnea, unspecified type - ICD9: 780.57, ICD10: G47.30 - CONSULT TO SLEEP MEDICINE - ADULT 3. Fatigue, unspecified type - ICD9: 780.79, ICD10: R53.83 - CONSULT TO SLEEP MEDICINE - ADULT 4. Aphagia - ICD9: 787.20, ICD10: R13.0 - referral to speech therapy 5. Impaired functional mobility, balance, gait, and endurance - ICD9: V49.89, ICD10: Z74.09 - orders from previous appt already in place for PT. Discussed getting scheduled with PT. Office Visit on 01/06/24 CONSULT TO SLEEP MEDICINE - ADULT CONSULT TO SPEECH THERAPY Subjective: Patient presents with: Follow Up States she is doing well. Denies any new falls since her appt in November. Has not scheduled with PT as of yet but notes she does need therapy for her balance. Still having issues with name recall and short term memory. Continues to use cane with ambulation for longer distances. Uses a rollator at night to ambulate in her room. Feels like she is sleeping too much. She is up late at night, she reads at night and typically will read until 1-2 in the morning. Recent labs/Imaging related to complaint: CT BRAIN WO IVCON 10/19/23 IMPRESSION: Complete interval resolution of previously seen small subarachnoid hemorrhage along the left parietal lobe and left parietal operculum, when compared to most recent prior CT of 10/03/2023. No new hemorrhage. Medications Reviewed LORazepam (ATIVAN) 2 mg tab Take 1 tablet by mouth daily at bedtime for 90 days. meloxicam (MOBIC) 15 mg tablet Take 1 tablet by mouth once daily. baclofen 5 mg tablet Take 1 tablet by mouth two times a day. levothyroxine (SYNTHROID) 88 mcg tablet TAKE 1 TABLET DAILY EXCEPT DO NOT TAKE ON SUNDAYS. TAKE ON AN EMPTY STOMACH pantoprazole DR (PROTONIX) 20 mg tablet Take 2 tablets by mouth once daily. PARoxetine (PAXIL) 40 mg tablet Take 1 tablet by mouth once daily. amLODIPine (NORVASC) 5 mg tablet Take 1 tablet by mouth once daily. lisinopril (ZESTRIL) 40 mg tablet Take 1 tablet by mouth once daily. lamoTRIgine (LAMICTAL) 25 mg tablet Take 1 tablet by mouth once daily. aspirin, enteric coated (ASPIRIN, ENTERIC COATED) 81 mg EC tablet Take 1 tablet by mouth once daily. acetaminophen (TYLENOL) 500 mg tablet Take 2 tablets by mouth every 8 hours as needed for pain. vibegron (GEMTESA) 75 mg tablet Take 1 tablet by mouth once daily. Prescribed by Dr. Hansen ergocalciferol 50,000 unit capsule (VITAMIN D2, DRISDOL) Take 1 capsule by mouth every 4 weeks. brimonidine-timolol (COMBIGAN) 0.2-0.5 % ophthalmic solution Use 1 Drop in the left eye twice daily. latanoprost (XALATAN) 0.005 % ophthalmic solution Use 1 Drop in both eyes daily at bedtime. BREO ELLIPTA 100-25 mcg/dose inhaler vit C/E/zinc ox/trevor/lut/zeax (ICAPS AREDS2 ORAL) loratadine (CLARITIN REDITABS) 10 mg dissolvable tablet Take 1 tablet by mouth once daily as needed(allergies). DULCOLAX, BISACODYL, ORAL Take 1 tablet by mouth as needed. polyethylene glycol 3350 (MIRALAX, GLYCOLAX) 17 gram/dose powder Drink a mix of 1 scoop in 8oz of water/beverage once daily as needed for constipation. cyanocobalamin (VITAMIN B-12) 1,000 mcg tab Take 1,000 mcg by mouth once daily. albuterol HFA (VENTOLIN HFA) 90 mcg/actuation inhaler Inhale 2 Puffs as instructed every 4 hours asneeded for Wheezing/Shortness of Breath. MULTIVITAMIN TAB Take one(1) tablet daily. OARRS reviewed to confirm/clarify any controlled medications Allergies Reviewed PAST MEDICAL HISTORY: 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 Pacemaker Punctate Keratitis, 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, Mild Stage Allergic Conjunctivitis of Both Eyes Recurrent Uti Asthmatic Bronchitis , Chronic (Hcc) Stage 3 Chronic Kidney Disease, Unspecified Whether Stage 3a Or 3b Ckd (Hcc) Physical Debility PAST SURGICAL HISTORY Procedure Laterality Date CHOLECYSTECTOMY 1998 COLONOSCOPY FLX DX W/COLLJ SPEC WHEN PFRMD 12/18/2005 COLONOSCOPY FLX DX W/COLLJ SPEC WHEN PFRMD 09/17/2011 COLONOSCOPY FLX DX W/COLLJ SPEC WHEN PFRMD 11/30/2017 Colonoscopy - adenomatous polyp-5 year follow-up EGD 05/29/2017 LASER IRIDOPLASTY OS (LEFT EYE) Left LASER IRIDOTOMY OD (RIGHT EYE) Right PACEMAKER INSERTSION 05/29/2021 dual lead PAST SURGICAL HISTORY OF 09/2007 jacinto eyelid removal dropping skin PAST SURGICAL HISTORY OF Bilateral 11/24/2011 cataract removal 11/19/11, 11/24/11 SLING OPER STRES INCONTINENCE 2004 TONSILLECTOMY HX 1956 VAG HYST 250 GM/< W/RMVL TUBE&/OVARY 1996 uterine prolapse, hyst. bilateral oophorectomy VITRECTOMY MECHANICAL PARS PLANA Left Social History Tobacco Use Smoking status: Former Packs/day: 0.50 Years: 10.00 Additional pack years: 0.00 Total pack years: 5.00 Types: Cigarettes Quit date: 05/14/1965 Years since quittin.6 Passive exposure: Past Smokeless tobacco: Never Vaping Use Vaping Use: Never used Substance Use Topics Alcohol use: Yes Comment: 1/2 glass of wine twice per month Drug use: No family history includes Arthritis in her mother; Cancer in her father and mother; Kidney Disease inher mother. Review of systems as noted, reviewed, and documented on intake section. Physical Exam: 01/06/24 1444 BP: 122/55 Pulse: 60 SpO2: 95% Weight: 76.6 kg (168 lb 14 oz) General: no acute distress. Awake, alert. Cardiopulmonary: unlabored breathing. Appears well perfused Abdomen: non-distended, Lower Extremities: no edema, no calf tenderness. Skin: Visualized areas are warm, dry, no jaundice UE SAB EF EE WE WF Cassandra Consultant R 5/5 5/5 5/5 5/5 5/5 5/5 L 5/5 5/5 5/5 5/5 5/5 5/5 LE HF KF KE PF DF R 5/5 5/5 5/5 5/5 5/5 L 5/5 5/5 5/5 5/5 5/5 During our face to face clinical encounter we discussed my concerns neurologically in terms of diagnosis, impact on health and activities of living, and addressed questions. I tried to reassure the patient and also address questions. I explained to the patient to call if any questions, to review res ults, and follow-up as instructed or as needed. Patient verbalizes understanding and I have addressed concerns and questions at this visit Patient has my contacts, educational material provided, and my chart sign up. After visit summary discussed. Ailyn Bonner APRN.BERTHA [facility] documented in this encounterK[facility]tering [facility]04-01-2024 Miscellaneous Notes* Telephone Encounter - Saida Flores MA - 12/07/2023 9:56 AM EDT Requested Prescriptions Pending Prescriptions Disp Refills LORazepam (ATIVAN) 2 mg tab 30 tablet 2 Sig: Take 1 tablet by mouth daily at bedtime for 90 days. Date of last office visit in primary care: 10/14/2023 Date of next office visit in primary care: 03/30/2024 Please advise. Thank you. Saida Flores MA. documented in this encounterKettering [facility]03-05-2024 NoteHNO ID: [id number] Author: ARACELIS PORTILLO, PhD Service: ? Author Type: Psychologist Type: Progress Notes Filed: 11/10/2023 14:32 Note Text: [facility] Department of Neurology Section of Neuropsychology Neuropsychological Evaluation Report PATIENT NAME: Geoffrey Nassar DATE OF : 1935 DATE OF SERVICE: 11/09/2023 REFERRAL SOURCE: Michelle Vazquez APRN, CNP Geoffrey is an 88 year old female who was referred for a neuropsychological evaluation to assess cognitive and emotional functions following a history of fall on 10/02/2023. The current evaluation consisted of a review of available medical records, interview with Geoffrey and administration of standardized neuropsychological tests. On 10/02/2023 Geoffrey reported that she had gone out to get her mail and reported that when returning to her home she bent down to waste picker a twig that had fallen. She shared she had her foot on the curb and stumbled, falling into the street. She denied any loss of consciousness but stated she was not able to get up. Several people driving by stopped and helped her up and into her home. She initially declined calling 911 or going to the hospital. Geoffrey stated that after thinking about it she did call 911 and paramedics came to the home to evaluate her. She declined transport at the time but later had her brother take her to the emergency department at [facility]. CT scan of the brain indicated a brain bleed and she was subsequently transferred to [facility] where she was admitted. Geoffrey stated that the bleed resolved without neurosurgical intervention and she was discharged home on 10/05/2023. Injury Description: Loss of Consciousness: none Post-traumatic amnesia: none Staci Coma Scale:15 Neuroimaging findings: CT scan of the brain indicated bilateral subarachnoid hemorrhages Residual physical symptoms: none COGNITIVE CONCERNS: Geoffrey denied any prior history of cognitive concerns. Subsequent to her injury she has not noted any changes in cognitive abilities and feels she is at her baseline. Activities of Daily Living: Hygiene: independent Road Supervisor Of Engines: independent - recently hired a tent finisher and uses food delivery services from [employer] Medications: independent Finances: independent Driving: independent MEDICAL HISTORY: See records for full review. Relevant diagnoses include history of prior falls. Geoffrey shared she had tripped over a concrete barrier in a parking lot last May and fell on her face. She denied diagnosis of concussion as a result of this event. She shared she has also experienced several other falls at home over the past year. Medical history is also notable for HTN, GERD, hypothyroidism, bradycardia with pacemaker placement, cholecystectomy and history of PEs. Geoffrey denied any history of head injury with loss of consciousness, stroke, or seizure. Review of select systems is notable for: Sensory difficulties: no concerns Motor Changes: balance concerns, uses a walker at home at night and cane in community Chronic pain: denied Sleep: reported sleeping too much. Will go to bed around 1:30 or 2:00 am and get up between 11-2 the following day. Shared difficult time getting up due to depression. Daytime fatigue: denied naps Substance use: denied Recent Neurological workup with Michelle Vazquez APRN, CNP on 10/22/2023 revealed: Neurological Exam: doing well, no concerns Brain MRI/EEG: repeat CT scan indicated no evidence of prior bleeds Medication List: Ativan 2 mg at hs, amlodipine 5 mg, baclofen 5 mg, Breo inhaler, albuterol inhaler, Vitamin B12, Vitamin D, Gemtesa 75 mg, lamotrigine 25 mg, levetiracetam 500 mg bid, levothyroxine 88 mcg, lisinopril 40 mg, loratadine 10 mg, pantoprazole 20 mg, paroxetine 40 mg Family neurological history: Geoffrey reported her parents are . She has three brothers and shared two are still living. Her brother Anthony has a history of CHF and atrial fibrillation. PSYCHIATRIC HISTORY: Geoffrey reported a history of depression with onset in adolescence. She shared that she has previously participated in counseling which focused on her divorce. She reported medications have been prescribed by primary care and she has never been seen by psychiatry. She presented an article on dysthymic disorder and stated she feels that she meets the diagnostic criteria. At the present time she reported that she takes the Ativan at night to help with sleep due to constant thoughts regarding current stresses and concerns. She delays getting up in the mornings as she does not want to deal with the day. Geoffrey denied auditory/visual hallucinations or suicidal ideation. PSYCHOSOCIAL HISTORY: Developmental history: Milestones were met within expected timeframes Education: Completed high school and one month of college, left to . No history of cognitive or learning disord (more content not included)...[facility]03-05-2024 NoteHNO ID: [id number] Author: ARACELIS PORTILLO, PhD Service: ? Author Type: Psychologist Type: Progress Notes Filed: 11/10/2023 14:32 Note Text: [facility] Instructions* Patient Instructions* Tremaine Landon MD - 11/09/2023 2:27 PM EST Thank you very much for your visit! We will plan to see you in 8 weeks for follow up. Please schedule follow-up with Advanced Practice Provider (Ailyn Bonner) by calling at contact no. [phone] or [phone] for appointment scheduling. You were referred to the following therapies/disciplines today: - Schedule appointment with Occupational Therapy and Physical Therapy - Psychiatry The following work/activity restrictions were recommended: -Gradually advance with activities as tolerated -Follow fall precautions -Continue to follow sleep hygiene Remember: Do not engage in any activities that put you at risk for hitting or being hit in the head, such as biking, baseball, soccer, etc. Please call this clinic if you have any questions or problems with your medications at [phone]. [facility] History of Present illness Narrative* Tremaine Landon MD - 11/09/2023 2:00 PM EST November 08, 2023 Reason for visit: Patient presents with: New Patient HISTORY OF PRESENT ILLNESS: This is an initial clinic visit for this 88 year old right-handed female for evaluation of their rehabilitation needs following acquired/traumatic brain injury. This patient is seen at the request of No referring provider defined for this encounter. The patient chart reviewed in [facility] and history obtained/confirmed with patient. Geoffrey Nassar has a past medical history of anxiety, depression, diverticulosis, HTN, PE, pacemaker, asthma, umbilical hernia, GERD, hypothyroidism, degenerative disc disease (lumbar) tubular adenoma of the colon, recurrent falls who sustained a fall on 10/02/2023. Mechanism of Injury: Fall Injury Date: 10/02/2023 LOC: No LOC Amnestic to Events: No Evaluated at: [facility] at ED/Admission: 15 Brought in by: Initially evaluated in [facility] ER and transferred to [facility] Imaging: CT of head - Yes, multifocal subarachnoid hemorrhages Other injuries: None Hospital Course -ASA on hold, reversed with DDAVP -1 week course of Keppra given for seizure prophylaxis -Non-surgical treatment recommended by NSGY, Monitored in ICU, repeat imaging stable -She had no swallowing difficulty, evaluated by TERMITE CONTROL SERVICE REPRESENTATIVE -OT and PT assessment done -She was discharged with outpatient OT and PT, recommended to hold off ASA Date of discharge: 10/05/2023 Discharged to: Home Updates since discharge:: -No ER visit or hospitalization -Followed up with PCP, per report they hold off therapies till completing all the follow ups -Followed up with NSGY 10/22/2023, no concerns on imaging -ASA resumed Overall she is improving since discharge. Her daughter stayed with her for 3 weeks. She took good breast for first week and then gradually increase her activities. She reports resolution of headache which is located on the left temporoparietal region. She has sinus headache which is unchanged from prior to injury. Her headache manageable with Tylenol. She reports some issue with her balance and feels like she goes towards her right side while walking. She denies any lightheadedness but notices some dizziness occasionally. 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 She uses cane while outdoo rs. She denies any difficulty with clearance of her foot. She had a fall back in May 2023 which led to bruising on her forehead. She denies any loss of consciousness, amnesia or altered consciousness after the fall.She denies any vertigo or spinning sensation. She takes baclofen 5 mg twice daily for back spasms. She experiences back spasm if she does not take the medication. She has glaucoma and macular degeneration but denies any change in her vision. Shedenies any issues with hearing or sensitivity to noise or tinnitus. She denies any trouble swallowing but notices some hydration and test with sinus problem. She reports increased forgetfulness and difficulty in word finding. She feels that this is happening gradually over the last couple of years and denies any worsening after recent 2 falls. This is notinterfering in her routine. She mentions to be a late night sleeper and sleeps by 2 AM. She states that low mood or depression is the reason to sleep late. She follows a bedtime routine of reading book which helps her to sleep. She denies any difficulty or fatigue after getting up in the morning. But after doing multiple tasks she notices fatigue and increased back pain. She prefers to take a break between her tasks. Her PCP has managed her mental health medication and she is interested to follo w-up with psychiatry to discuss dose adjustment/regulation. She continues to be continent for bowel and bladder function. She is taking Gemtesa for bladder overactivity and feels that it is working well. She uses MiraLAX as needed for bowel regulation which is helpful. He denies any skin breakdowns or wounds. Functionally she is independent in self-care activities. She was using cane outdoors even prior to fall. She usually does cooking, cleaning, laundry but she has assigned a tent finisher to help with cleaning. She drives without any issue. She has recently signed up to grocery delivery service. She ismanaging her own medications. She looks after her finances. She lives with her mother and also helps and if needed. She is planning to start working with physical and Occupational Therapy. Recent labs/Imaging related to complaint: CT Brain 10/19/2023 IMPRESSION: Complete interval resolution of previously seen small subarachnoid hemorrhage along the left parietal lobe and left parietal operculum, when compared to most recent prior CT of 10/03/2023. CT Brain 10/03/2023 IMPRESSION: Small volume bilateral supratentorial acute subarachnoid hemorrhage as above, not significantly changed since prior exam. Question punctate focus parenchymal hemorrhage right temporal lobe, also similar. No new hemorrhage in the interval Medications Reviewed meloxicam (MOBIC) 15 mg tablet Take 1 tablet by mouth once daily. baclofen 5 mg tablet Take 1 tablet by mouth two times a day. levothyroxine (SYNTHROID) 88 mcg tablet TAKE 1 TABLET DAILY EXCEPT DO NOT TAKE ON SUNDAYS. TAKE ON AN EMPTY STOMACH pantoprazole DR (PROTONIX) 20 mg tablet Take 2 tablets by mouth once daily. PARoxetine (PAXIL) 40 mg tablet Take 1 tablet by mouth once daily. amLODIPine (NORVASC) 5 mg tablet Take 1 tablet by mouth once daily. lisinopril (ZESTRIL) 40 mg tablet Take 1 tablet by mouth once daily. lamoTRIgine (LAMICTAL) 25 mg tablet Take 1 tablet by mouth once daily. aspirin, enteric coated (ASPIRIN, ENTERIC COATED) 81 mg EC tablet Take 1 tablet by mouth once daily. acetaminophen (TYLENOL) 500 mg tablet Take 2 tablets by mouth every 8 hours as needed for pain. vibegron (GEMTESA) 75 mg tablet Take 1 tablet by mouth once daily. Prescribed by Dr. Hansen LORazepam (ATIVAN) 2 mg tab Take 1 tablet by mouth daily at bedtime for 90 days. ergocalciferol 50,000 unit capsule (VITAMIN D2, DRISDOL) Take 1 capsule by mouth every 4 weeks. brimonidine-timolol (COMBIGAN) 0.2-0.5 % ophthalmic solution Use 1 Drop in the left eye twice daily. latanoprost (XALATAN) 0.005 % ophthalmic solution Use 1 Drop in both eyes daily at bedtime. BREO ELLIPTA 100-25 mcg/dose inhaler vit C/E/zinc ox/trevor/lut/zeax (ICAPS AREDS2 ORAL) loratadine (CLARITIN REDITABS) 10 mg dissolvable tablet Take 1 tablet by mouth once daily as needed(allergies). DULCOLAX, BISACODYL, ORAL Take 1 tablet by mouth as needed. polyethylene glycol 3350 (MIRALAX, GLYCOLAX) 17 gram/dose powder Drink a mix of 1 scoop in 8oz of water/beverage once daily as needed for constipation. cyanocobalamin (VITAMIN B-12) 1,000 mcg tab Take 1,000 mcg by mouth once daily. albuterol HFA (VENTOLIN HFA) 90 mcg/actuation inhaler Inhale 2 Puffs as instructed every 4 hours asneeded for Wheezing/Shortness of Breath. MULTIVITAMIN TAB Take one(1) tablet daily. Allergies Reviewed ALLERGIES Allergen Reactions Shellfish Containin* Unknown Penicillamine Unknown Benadryl [Diphenhyd* Rash Cats Cipro [Ciprofloxaci* Itching Dust Ketamine Unknown Mold Penicillins Rash Shellfish Shortness of Breath Spiriva With Handih* Intolerance not help Sulfa (Sulfonamide * GI Upset Symbicort [Budesoni* Intolerance tremor,shaky Tetanus Toxoid Adso* Intolerance arm swell PAST MEDICAL HISTORY: 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 Pacemaker Punctate Keratitis, 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, Mild Stage Allergic Conjunctivitis of Both Eyes Recurrent Uti Asthmatic Bronchitis , Chronic (Hcc) Stage 3 Chronic Kidney Disease, Unspecified Whether Stage 3a Or 3b Ckd (Hcc) Physical Debility PAST SURGICAL HISTORY Procedure Laterality Date CHOLECYSTECTOMY 1998 COLONOSCOPY FLX DX W/COLLJ SPEC WHEN PFRMD 12/18/2005 COLONOSCOPY FLX DX W/COLLJ SPEC WHEN PFRMD 09/17/2011 COLONOSCOPY FLX DX W/COLLJ SPEC WHEN PFRMD 11/30/2017 Colonoscopy - adenomatous polyp-5 year follow-up EGD 05/29/2017 LASER IRIDOPLASTY OS (LEFT EYE) Left LASER IRIDOTOMY OD (RIGHT EYE) Right PACEMAKER INSERTSION 05/29/2021 dual lead PAST SURGICAL HISTORY OF 09/2007 jacinto eyelid removal dropping skin PAST SURGICAL HISTORY OF Bilateral 11/24/2011 cataract removal 11/19/11, 11/24/11 SLING OPER STRES INCONTINENCE 2004 TONSILLECTOMY HX 1956 VAG HYST 250 GM/< W/RMVL TUBE&/OVARY 1996 uterine prolapse, hyst. bilateral oophorectomy VITRECTOMY MECHANICAL PARS PLANA Left Social History Tobacco Use Smoking status: Former Packs/day: 0.50 Years: 10.00 Additional pack years: 0.00 Total pack years: 5.00 Types: Cigarettes Quit date: 05/14/1965 Years since quittin.5 Passive exposure: Past Smokeless tobacco: Never Vaping Use Vaping Use: Never used Substance Use Topics Alcohol use: Yes Comment: 1/2 glass of wine twice per month Drug use: No family history includes Arthritis in her mother; Cancer in her father and mother; Kidney Disease inher mother. Review of systems negative except as noted above. 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 Supportive: Yes Friends within a mile and family within 5 miles Smoking: No prior or current use EtOH: occasionally drinks wine, nothing since hospitalization Drugs: no prior or current drug use PHYSICAL EXAMINATION: 11/09/23 1423 BP: 148/84 Pulse: 71 Resp: 16 Weight: 78 kg (172 lb) Height: 157.5 cm (5' 2) General: The patient is a well-nourished, well groomed female who appears stated age. HEAD: Normocephalic, atraumatic EYE: -Appearance: Sclera nonicteric, PERRLA -Eye movements: EOMI, no resting nystagmus ENT: no rhinorrhea, MMM Lung: breathing unlabored in room air Skin: skin turgor is normal. Musculoskeletal: range of motion of cervical spine within normal limits. No Tenderness in temporalis muscles, TMJ area. Extremity: no edema noted in extremities. Neurologic: Cognitive screen MMSE: 29/30 -Orientation (5+5): Year 1, Season 1, Date 1, Day 1, Month1 State1, Country1, Town1, Hospital1, Floor1 -Registration (3): Name 3 objects- 3 -Attention and Calculation (5): Serial 7's or spell backwards 'world'- 5 -Recall (3): Repeat name of 3 objects- 2 -Language: Name 2 objects (2)- 2 Repetition (1)- 1 Follow 3 staged command (3)- 3 Read and comprehend (1)- 1 Write a sentence (1)- 1 Copy the design- intersecting pentagons (1)- 1 Cranial Nerves: Pupil equal and reactive to accomodation External ocular movement present in all planes bilaterally Normal facial sensation to light touch and normal jaw movement Face appears symmetrical at rest and on activity Hearing intact to conversation Palate symmetrical and elevates equally, phonation normal Neck movement and shoulder shrug normal bilaterally Tongue movements present in all directions Motor Exam: Strength: Strength Right Left Shoulder abductors 5/5 5/5 Elbow flexors 5/5 5/5 Elbow extensors 5/5 5/5 Wrist extensors 5/5 5/5 Cassandra Consultant strength 5/5 5/5 Hip flexors 5/5 5/5 Knee extensors 5/5 5/5 Knee flexors 5/5 5/5 Ankle dorsiflexors 5/5 5/5 Ankle plantarflexors 5/5 5/5 Normal tone in both UE and LE SPASMS observed: RUE: no LUE: no RLE: no LLE: no Deep Tendon Reflexes: Upper extremities: 3+. Lower Extremities 3+. Rodriguez was negative on left, positive on right Sensation: Light touch was normal in both UE and LE. Romberg negative. Cerebellar: Nystagmus absent. finger to nose testing was normal on right, mild dysmetria on left. Fine movements were normal in both hands. Gait: Able to walk with and without cane. Walks with cautious gait with short steps, occasional broad based stance but inconsistent. Able to get up from chair without support. Mild unsteady on singleleg stance. 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 She has resumed her aspirin after follow up with NSGY. She has improved with her symptoms and able to function independently. She was seen in clinic today for initial evaluation. 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 (R42) Dizziness and giddiness (R68.89) Forgetfulness (R26.89) Imbalance (G44.309) Post-traumatic headache, not intractable, unspecified chronicity pattern 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 Traumatic brain injury, without loss of consciousness, subsequent encounter - ICD9: V58.89, ICD10: S06.9X0D (primary diagnosis) 2. 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 - ICD9: 293.83, ICD10: F06.30 3. Dizziness and giddiness - ICD9: 780.4, ICD10: R42 4. Forgetfulness - ICD9: 780.99, ICD10: R68.89 5. Imbalance - ICD9: 781.2, ICD10: R26.89 6. Post-traumatic headache, not intractable, unspecified chronicity pattern - ICD9: 339.20, ICD10: G44.309 -Mild TBI with positive imaging findings/ complicated TBI as a result of Fall. The pathophysiology and prognosis of the traumatic brain injury were explained to the patient/family. Patient was educated regarding energy conservation, recurrent risk of traumatic brain injury and return to baseline activities. -She reports improvement in symptoms and able to function independently. She has had some dizzinessand forgetfulness at baseline without any recent worsening, will continue to monitor. She reports resolution of headache related to TBI and has sinus headache, responds to tylenol. -Recommend to schedule appointment with OT and PT, patient has orders in place -Follow up with NSGY as directed -Referral to psychiatry placed, as patient interested to discuss her mental health medications. -Discussed sleep hygiene routine, patient acknowledged. -Follow up in 8 weeks with Advanced Practice Provider- Ailyn Bonner. Will continue to monitor need for TERMITE CONTROL SERVICE REPRESENTATIVE and sleep medicine referral -Patient was educated on to gradual increase in activities as tolerated. -Continue use of cane/walker, follow fall precautions. I spent a total of 60 minutes on the date of the service which included preparing to see the patient, [id number] patient care, completing clinical documentation, performing a medically appropriate examination, counseling and educating the patient/family/caregiver, ordering medications, tests, or p rocedures and communicating results to the patient/family/caregiver. Tremaine Landon MD Physical Medicine & Rehab [facility] documented in this [facility] NoteHNO ID: [id number] Author: TREMAINE LANDON MD Service: ? Author Type: Physician Type: Progress Notes Filed: 11/09/2023 16:51 Note Text: November 08, 2023 Reason for visit: Patient presents with: New Patient HISTORY OF PRESENT ILLNESS: This is an initial clinic visit for this 88 year old right-handed female for evaluation of their rehabilitation needs following acquired/traumatic brain injury. This patient is seen at the request of No referring provider defined for this encounter. The patient chart reviewed in [facility] and history obtained/confirmed with patient. Geoffrey Nassar has a past medical history of anxiety, depression, diverticulosis, HTN, PE, pacemaker, asthma, umbilical hernia, GERD, hypothyroidism, degenerative disc disease (lumbar) tubular adenoma of the colon, recurrent falls who sustained a fall on 10/02/2023. Mechanism of Injury: Fall Injury Date: 10/02/2023 LOC: No LOC Amnestic to Events: No Evaluated at: [facility] at ED/Admission: 15 Brought in by: Initially evaluated in [facility] ER and transferred to [facility] Imaging: CT of head - Yes, multifocal subarachnoid hemorrhages Other injuries: None Hospital Course -ASA on hold, reversed with DDAVP -1 week course of Keppra given for seizure prophylaxis -Non-surgical treatment recommended by NSGY, Monitored in ICU, repeat imaging stable -She had no swallowing difficulty, evaluated by TERMITE CONTROL SERVICE REPRESENTATIVE -OT and PT assessment done -She was discharged with outpatient OT and PT, recommended to hold off ASA Date of discharge: 10/05/2023 Discharged to: Home Updates since discharge:: -No ER visit or hospitalization -Followed up with PCP, per report they hold off therapies till completing all the follow ups -Followed up with NSGY 10/22/2023, no concerns on imaging -ASA resumed Overall she is improving since discharge. Her daughter stayed with her for 3 weeks. She took good breast for first week and then gradually increase her activities. She reports resolution of headache which is located on the left temporoparietal region. She has sinus headache which is unchanged from prior to injury. Her headache manageable with Tylenol. She reports some issue with her balance and feels like she goes towards her right side while walking. She denies any lightheadedness but notices some dizziness occasionally. 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 She uses cane while outdoors. She denies any difficulty with clearance of her foot. She had a fall back in May 2023 which led to bruising on her forehead. She denies any loss of consciousness, amnesia or altered consciousness after the fall.She denies any vertigo or spinning sensation. She takes baclofen 5 mg twice daily for back spasms. She experiences back spasm if she does not take the medication. She has glaucoma and macular degeneration but denies any change in her vision. She denies any issues with hearing or sensitivity to noise or tinnitus. She denies any trouble swallowing but notices some hydration and test with sinus problem. She reports increased forgetfulness and difficulty in word finding. She feels that this is happening gradually over the last couple of years and denies any worsening after recent 2 falls. This is not interfering in her routine. She mentions to be a late night sleeper and sleeps by 2 AM. She states that low mood or depression is the reason to sleep late. She follows a bedtime routine of reading book which helps her to sleep. She denies any difficulty or fatigue after getting up in the morning. But after doing multiple tasks she notices fatigue and increased back pain. She prefers to take a break between her tasks. Her PCP has managed her mental health medication and she is interested to follow-up with psychiatry to discuss dose adjustment/regulation. She continues to be continent for bowel and bladder function. She is taking Gemtesa for bladder overactivity and feels that it is working well. She uses MiraLAX as needed for bowel regulation which is helpful. He denies any skin breakdowns or wounds. Functionally she is independent in self-care activities. She was using cane outdoors even prior to fall. She usually does cooking, cleaning, laundry but she has assigned a tent finisher to help with cleaning. She drives without any issue. She has recently signed up to grocery delivery service. She is managing her own medications. She looks after her finances. She lives with her mother and also helps and if needed. She is planning to start working with physical and Occupational Therapy. Recent labs/Imaging related to complaint: CT Brain 10/19/2023 IMPRESSION: Complete interval resolution of previously seen small subarachnoid hemorrhage along the left parietal lobe and left parietal operculum, when compared to most recent prior CT of 10/03/2023. CT Brain 10/03/2023 IMPRESSION: Small volume bilateral suprat (more content not included)...[facility]02-28-2024 Miscellaneous Notes* Telephone Encounter - Kailey Caraballo LPN - 11/04/2023 11:46 AM EST TC to Geoffrey, she did not realize that she had a refill for Lorazepam, she will contact the pharmacy. Kailey Caraballo LPN documented in this [facility]24 Miscellaneous Notes* Telephone Encounter - Kassidy Peña RN - 11/03/2023 2:26 PM EST Patient has been identified by name and date of : Yes, Kassidy Peña RN Date 11/03/2023 Time 2:27 pm Patient phones for refill(s): Requested Prescriptions Pending Prescriptions Disp Refills meloxicam (MOBIC) 15 mg tablet 90 tablet 3 Sig: Take 1 tablet by mouth once daily. baclofen 5 mg tablet 180 tablet 3 Sig: Take 1 tablet by mouth two times a day. levothyroxine (SYNTHROID) 88 mcg tablet 78 tablet 3 Sig: TAKE 1 TABLET DAILY EXCEPT DO NOT TAKE ON SUNDAYS. TAKE ON AN EMPTY STOMACH pantoprazole DR (PROTONIX) 20 mg tablet 180 tablet 3 Sig: Take 2 tablets by mouth once daily. PARoxetine (PAXIL) 40 mg tablet 90 tablet 3 Sig: Take 1 tablet by mouth once daily. amLODIPine (NORVASC) 5 mg tablet 90 tablet 3 Sig: Take 1 tablet by mouth once daily. lisinopril (ZESTRIL) 40 mg tablet 90 tablet 3 Sig: Take 1 tablet by mouth once daily. lamoTRIgine (LAMICTAL) 25 mg tablet 90 tablet 3 Sig: Take 1 tablet by mouth once daily. Date of last office visit in primary care: 10/14/2023 Date of next office visit in primary care: 03/30/2024 Patient reports that her mail away company was changed and she wasn't aware at the time she requested refills previously. She is now having trouble getting prescriptions and asking if provider can send new prescriptions to [facility]. Please advise. Thank you. Kassidy Peña RN. documented in this encounterK[facility]02-22-2024 Miscellaneous Notes* Telephone Encounter - Ute Gibbs RN - 10/29/2023 5:41 PM EST Spoke with patient. Given message from provider's office. Patient verbalizes understanding. Ute Gibbs RN * Telephone Encounter - Ken Contreras MD - 10/29/2023 5:36 PM EST Okay. * Telephone Encounter - Faby Sears RN - 10/29/2023 11:41 AM EST Patient calls and states that after she had fell and had concussion/brain bleed she was taken off of meloxicam and low dose aspirin. Patient states that she has been clear and asking if she can resume medications? Please review and advise, Faby Sears RN documented in this encounterK[facility]02-15-2024 History of Present illness Narrative* Michelle Vazquez APRN.CNP - 10/22/2023 2:30 PM EST Images from the original note were not included. NEUROSURGERY FOLLOW UP OFFICE NOTE Michelle Vazquez APRN.CNP Date of visit: October 22, 2023 Patient Name: Ms.Sally Barbie Nassar Date of : 1935 Current Age: [age] year old Sex: female MRN/E# [id number] Last Office Visit: Hospital follow-up CHIEF COMPLAINT: Patient presents with: Established Patient HPI: The patient presents for a hospital follow up with imaging (CT B) for evaluation. This is an 88-year-old female with a PMHx of diverticulosis, HTN, PE, pacemaker, asthma, umbilical hernia, GERD, hypothyroidism, degenerative disc disease (lumbar) tubular adenoma of the colon who was seen for consultat [facility] on 10/03/2023 after transfer from an outside ED by Dr. Holder. Patient was seen after a fall in her driveway after tripping over a curb causing her to strike her head. She reported taking low-dose ASA daily. Upon further evaluation the patient reported that she had fallen 3 times since May 2023 and has been experiencing headaches and dizziness. She denies any LOC. Workup was completed and demonstrated multifocal traumatic subarachnoid hemorrhages. ASA was placed on hold and reversed with DDAVP, she was started on a short course of Keppra for seizure prophylaxis and monitored inthe ICU. Repeat imaging remained stable and no neurosurgical intervention was indicated. Recommendation was to continue to hold ASA and follow-up in [address] prompting her visit today. S jean discharge she states she is overall doing well. She denies headache, visual changes, speech deficits, seizure activity, motor or sensory deficits. She presents for image review, evaluation and plan of care. SYMPTOMS: None PREVIOUS CONSERVATIVE TREATMENTS: Tylenol as needed PREVIOUS SURGERY: None SURGICAL RISK: Smoker: Former -quit 05/14/1965 Diabetic: No Anticoagulants / Antiplatelets: ASA -hold Occupation: N/A PAIN EVALUATION 10/21/2023 1143 Pain Level: 3 Pain Location: Head Description: Dull Duration Amount of Time: 20 Duration Units: Minutes Frequency: Intermittent Intervention/Comfort measure: Medication Comments: A dull ache at point of injury. Passes with Tylenol. Returns in about 6-7 hours. Uncomfortable with pillow. PAST MEDICAL HISTORY Diagnosis Date Bradycardia 01/18/2021 Bronchiectasis without complication (HCC) 11/27/2009 Dr. Jaswant Miller, pulmonary. 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 Diverticulosis of small intestine (without mention of hemorrhage) Enthesopathy of hip region 07/08/2011 Essential hypertension 05/25/2008 Extrinsic asthma 01/29/2006 Family history of malignant neoplasm of gastrointestinal tract liver cancer Foraminal stenosis of cervical region 01/30/2012 Gait disturbance 01/29/2017 Gastroesophageal reflux disease with esophagitis 05/13/2013 HERNIA UMBILICAL 12/19/2005 Hypothyroidism 03/17/2005 Irritable bowel syndrome with both constipation and diarrhea 09/23/2016 Oral murray 10/29/2020 Pacemaker 07/25/2021 Pulmonary embolism with acute cor pulmonale (HCC) 11/24/2016 She was initially thought to have a NSTEMI, but was found to be a PE with Right Strain and NOT a NSTEMI. Pulmonary nodule 01/08/2017 Tubular adenoma of colon 12/29/2017 PAST SURGICAL HISTORY Procedure Laterality Date CHOLECYSTECTOMY 1998 COLONOSCOPY FLX DX W/COLLJ SPEC WHEN PFRMD 12/18/2005 COLONOSCOPY FLX DX W/COLLJ SPEC WHEN PFRMD 09/17/2011 COLONOSCOPY FLX DX W/COLLJ SPEC WHEN PFRMD 11/30/2017 Colonoscopy - adenomatous polyp-5 year follow-up EGD 05/29/2017 LASER IRIDOPLASTY OS (LEFT EYE) Left LASER IRIDOTOMY OD (RIGHT EYE) Right PACEMAKER INSERTSION 05/29/2021 dual lead PAST SURGICAL HISTORY OF 09/2007 jacinto eyelid removal dropping skin PAST SURGICAL HISTORY OF Bilateral 11/24/2011 cataract removal 11/19/11, 11/24/11 SLING OPER STRES INCONTINENCE 2004 TONSILLECTOMY HX 1956 VAG HYST 250 GM/< W/RMVL TUBE&/OVARY 1996 uterine prolapse, hyst. bilateral oophorectomy VITRECTOMY MECHANICAL PARS PLANA Left FAMILY HISTORY Problem Relation Age of Onset Cancer Mother Arthritis Mother Kidney Disease Mother Cancer Father lung ALLERGIES Allergen Reactions Shellfish Containin* Unknown Penicillamine Unknown Benadryl [Diphenhyd* Rash Cats Cipro [Ciprofloxaci* Itching Dust Ketamine Unknown Mold Penicillins Rash Shellfish Shortness of Breath Spiriva With Handih* Intolerance not help Sulfa (Sulfonamide * GI Upset Symbicort [Budesoni* Intolerance tremor,shaky Tetanus Toxoid Adso* Intolerance arm swell Current Outpatient Medications Medication Sig Dispense Refill baclofen 5 mg tablet Take 1 tablet by mouth two times a day. 180 tablet 3 levothyroxine (SYNTHROID) 88 mcg tablet TAKE 1 TABLET DAILY EXCEPT DO NOT TAKE ON SUNDAYS. TAKE ON AN EMPTY STOMACH [address] (PROTONIX) 20 mg tablet Take 2 tablets by mouth once daily. 180 tablet 3 PARoxetine (PAXIL) 40 mg tablet Take 1 tablet by mouth once daily. 90 tablet 3 amLODIPine (NORVASC) 5 mg tablet Take 1 tablet by mouth once daily. 90 tablet 3 lisinopril (ZESTRIL) 40 mg tablet Take 1 tablet by mouth once daily. 90 tablet 3 acetaminophen (TYLENOL) 500 mg tablet Take 2 tablets by mouth every 8 hours as needed for pain. vibegron (GEMTESA) 75 mg tablet Take 1 tablet by mouth once daily. Prescribed by Dr. Hansen LORazepam (ATIVAN) 2 mg tab Take 1 tablet by mouth daily at bedtime for 90 days. 30 tablet 2 ergocalciferol 50,000 unit capsule (VITAMIN D2, DRISDOL) Take 1 capsule by mouth every 4 weeks. 3 capsule 3 lamoTRIgine (LAMICTAL) 25 mg tablet Take 1 tablet by mouth once daily. 90 tablet 3 brimonidine-timolol (COMBIGAN) 0.2-0.5 % ophthalmic solution Use 1 Drop in the left eye twice daily. 5 mL 1 latanoprost (XALATAN) 0.005 % ophthalmic solution Use 1 Drop in both eyes daily at bedtime. 5 mL 2 BREO ELLIPTA 100-25 mcg/dose inhaler vit C/E/zinc ox/trevor/lut/zeax (ICAPS AREDS2 ORAL) loratadine (CLARITIN REDITABS) 10 mg dissolvable tablet Take 1 tablet by mouth once daily as needed(allergies). DULCOLAX, BISACODYL, ORAL Take 1 tablet by mouth as needed. polyethylene glycol 3350 (MIRALAX, GLYCOLAX) 17 gram/dose powder Drink a mix of 1 scoop in 8oz of water/beverage once daily as needed for constipation. 1 Bottle 0 cyanocobalamin (VITAMIN B-12) 1,000 mcg tab Take 1,000 mcg by mouth once daily. albuterol HFA (VENTOLIN HFA) 90 mcg/actuation inhaler Inhale 2 Puffs as instructed every 4 hours asneeded for Wheezing/Shortness of Breath. 1 Inhaler 5 MULTIVITAMIN TAB Take one(1) tablet daily. 0 levETIRAcetam (KEPPRA) 500 mg tablet Take 1 tablet by mouth two times a day for 5 days. (Patient not taking: Reported on 10/14/2023) 10 tablet 0 triamcinolone (KENALOG) 0.025 % cream Apply to affected area once daily. 15 g 0 No current facility-administered medications for this visit. REVIEW OF SYSTEMS: Review of Systems Constitutional: Negative for chills, diaphoresis (Negative for night sweats.) and fever. HENT: Negative for ear discharge and rhinorrhea. Eyes: Negative for discharge. Respiratory: Negative for cough, shortness of breath and wheezing. Cardiovascular: Negative for chest pain, palpitations and leg swelling. Gastrointestinal: Negative for constipation, diarrhea, nausea and vomiting. Endocrine: Negative for cold intolerance and heat intolerance. Genitourinary: Negative for frequency. Negative for urinary incontinence and urinary retention. Musculoskeletal: Positive for gait problem. Negative for back pain, joint swelling, myalgias and neck pain. Skin: Negative for rash (Negative for hives and skin lesions.). Allergic/Immunologic: Negative for environmental allergies and food allergies. Negative for contact allergy, seasonal allergies. Neurological: Negative for dizziness, seizures, syncope, weakness, light- headedness, numbness (Negative for numbness in extremities.) and headaches. Hematological: Does not bruise/bleed easily. Psychiatric/Behavioral: The patient is not nervous/anxious. Negative for depression. OBJECTIVE: BP 114/76 Pulse 60 Resp 16 Ht 5' 4 (1.63m) Wt 170 lb 13.7 oz (77.5kg) SpO2 95% BMI 29.31 kg/(m^2). PHYSICAL EXAM: Mental State : Alert, memory function unremarkable. Attention span and concentration normal for patient's age. Speech normal, no receptive or expressive speech deficit. Recent and remote memory normal. Orientation : Oriented to person, place and time. Higher Cortical Function : Intact speech and language. Spontaneous speech and comprehension normal.Fund of knowledge intact for pt level of education. Cranial Nerves : II: No visual field cut no blurring, Makes and sustains eye contact III, IV, : Normal, no double vision or drooping. Pupils equal and reactive to light. Extraocularmuscles intact. No nystagmus V: Normal sensation on the face, normal jaw movements VII: No paresis on either side VIII: No gross hearing deficit IX: Good and equal shoulder shrugs XII: Tongue midline, no fasciculations Sensory: SILT. Normal Sensation in upper and lower extremities and trunk to touch and noxious stimuli. Motor: Normal muscle tone and bulk. No tremor or uncontrollable movements. No spasticity or tremor. Strength: Upper Extremities : R L Deltoid 5/5 5/5 Biceps 5/5 5/5 Triceps 5/5 5/5 Wrist Ext 5/5 5/5 Wrist Flx 5/5 5/5 Hand Int 5/5 5/5 Lower Extremities : Hip Flexors 5/5 5/5 Hip Extensors 5/5 5/5 Hip Abductors 5/5 5/5 Straight leg Neg Neg Ankle dorsiflex 5/5 5/5 Ankle Plantar 5/5 5/5 Reflexes : Biceps 2+ 2+ Triceps 2+ 2+ Wrist 2+ 2+ Patellar 2+ 2+ Achilles 2+ 2+ Cerebellar Function : Normal finger to nose. Normal rapid alternating movements. No ataxia. Negative Romberg. Gait and Station: Slightly compensated gait. Utilizing cane as and assistive device. Pulmonary: Lungs without cough, audible wheeze. Respirations unlabored. Cardiac: Regular rate and rhythm. No murmer, gallop or rub. DATA REVIEW: IMAGING STUDIES: CT Brain WO IVCON performed on 10/19/2023 demonstrates: IMPRESSION: Complete interval resolution of previously seen small subarachnoid hemorrhage along the left parietal lobe and left parietal operculum, when compared to most recent prior CT of 10/03/2023. No new hemorrhage. Personal review of medical records: I reviewed with the patient, history, physical exam, the imagesand the chart. ASSESSMENT/PLAN: (I60.9) SAH (subarachnoid hemorrhage) (HCC) (primary encounter diagnosis) Comment: This is a very pleasant 88-year-old female who presents as a hospital follow-up for evaluation with imaging. She had a fall on 10/03/2023 and was found to have multifocal traumatic subarachnoid hemorrhages for which no surgical intervention was indicated. Recommendation was to follow-up with repeat imaging. Today she states she is doing well and denies any specific complaints or concerns.Neurologically she is intact on exam without focal deficit. She is utilizing a a cane as an assistive device. She continues to hold her low-dose ASA which she takes for history of TIA. I reviewed herCT and compared it to previous scans. There is no evidence of the previously seen subarachnoid hemor rhage along the left parietal lobe and left parietal operculum. There is no evidence of a acute hemorrhage noted. At this time no further imaging or intervention is needed. I told her to please continue to hold her low-dose ASA for a total of 4 weeks. After that time she may resume it if this is deemed medically necessary. I would like her to follow-up with me in about 2-1/2 to 3 months for a routine office visit. Should she develop any new or concerning issues in the meantime she should feel free to contact the office. I will refer her to the TBI clinic for evaluation. I offered community assistance with our TBI liaison however she and her daughter deferred this option. All of their questions and concerns were addressed in detail. Plan: Follow-up in 2 and half to 3 months for a routine visit. MIKEL Abernathy Neurosurgery Nurse Practitioner [facility] FOLLOW UP: Return in about 3 months (around 01/20/2024) for routine visiit. Please Note: This note has been partially generated using [employer], a speech recognition software program, and may contain errors including punctuation, grammar, spelling, gender, and inappropriate words or phrases that pertain to the system. documented in this encounterK[facility]02-15-2024 NoteHNO ID: [id number] Author: MICHELLE VAZQUEZ APRN.CNP Service: ? Author Type: Nurse Practitioner Type: Progress Notes Filed: 10/22/2023 16:05 Note Text: NEUROSURGERY FOLLOW UP OFFICE NOTE Michelle Vazquez APRN.CNP Date of visit: October 22, 2023 Patient Name: Ms.Sally Barbie Nassar Date of : 1935 Current Age: [age] year old Sex: female MRN/E# [id number] Last Office Visit: Hospital follow-up CHIEF COMPLAINT: Patient presents with: Established Patient HPI: The patient presents for a hospital follow up with imaging (CT B) for evaluation. This is an 88-year-old female with a PMHx of diverticulosis, HTN, PE, pacemaker, asthma, umbilical hernia, GERD, hypothyroidism, degenerative disc disease (lumbar) tubular adenoma of the colon who was seen for consult at [facility] on 10/03/2023 after transfer from an outside ED by Dr. Holder. Patient was seen after a fall in her driveway after tripping over a curb causing her to strike her head. She reported taking low-dose ASA daily. Upon further evaluation the patient reported that she had fallen 3 times since May 2023 and has been experiencing headaches and dizziness. She denies any LOC. Workup was completed and demonstrated multifocal traumatic subarachnoid hemorrhages. ASA was placed on hold and reversed with DDAVP, she was started on a short course of Keppra for seizure prophylaxis and monitored in the ICU. Repeat imaging remained stable and no neurosurgical intervention was indicated. Recommendation was to continue to hold ASA and follow-up in [address] prompting her visit today. Since discharge she states she is overall doing well. She denies headache, visual changes, speech deficits, seizure activity, motor or sensory deficits. She presents for image review, evaluation and plan of care. SYMPTOMS: None PREVIOUS CONSERVATIVE TREATMENTS: Tylenol as needed PREVIOUS SURGERY: None SURGICAL RISK: Smoker: Former -quit 05/14/1965 Diabetic: No Anticoagulants / Antiplatelets: ASA -hold Occupation: N/A PAIN EVALUATION 10/21/2023 1143 Pain Level: 3 Pain Location: Head Description: Dull Duration Amount of Time: 20 Duration Units: Minutes Frequency: Intermittent Intervention/Comfort measure: Medication Comments: A dull ache at point of injury. Passes with Tylenol. Returns in about 6-7 hours. Uncomfortable with pillow. PAST MEDICAL HISTORY Diagnosis Date Bradycardia 01/18/2021 Bronchiectasis without complication (HCC) 11/27/2009 Dr. Jaswant Miller, pulmonary. 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 Diverticulosis of small intestine (without mention of hemorrhage) Enthesopathy of hip region 07/08/2011 Essential hypertension 05/25/2008 Extrinsic asthma 01/29/2006 Family history of malignant neoplasm of gastrointestinal tract liver cancer Foraminal stenosis of cervical region 01/30/2012 Gait disturbance 01/29/2017 Gastroesophageal reflux disease with esophagitis 05/13/2013 HERNIA UMBILICAL 12/19/2005 Hypothyroidism 03/17/2005 Irritable bowel syndrome with both constipation and diarrhea 09/23/2016 Oral murray 10/29/2020 Pacemaker 07/25/2021 Pulmonary embolism with acute cor pulmonale (HCC) 11/24/2016 She was initially thought to have a NSTEMI, but was found to be a PE with Right Strain and NOT a NSTEMI. Pulmonary nodule 01/08/2017 Tubular adenoma of colon 12/29/2017 PAST SURGICAL HISTORY Procedure Laterality Date CHOLECYSTECTOMY 1998 COLONOSCOPY FLX DX W/COLLJ SPEC WHEN PFRMD 12/18/2005 COLONOSCOPY FLX DX W/COLLJ SPEC WHEN PFRMD 09/17/2011 COLONOSCOPY FLX DX W/COLLJ SPEC WHEN PFRMD 11/30/2017 Colonoscopy - adenomatous polyp-5 year follow-up EGD 05/29/2017 LASER IRIDOPLASTY OS (LEFT EYE) Left LASER IRIDOTOMY OD (RIGHT EYE) Right PACEMAKER INSERTSION 05/29/2021 dual lead PAST SURGICAL HISTORY OF 09/2007 jacinto eyelid removal dropping skin PAST SURGICAL HISTORY OF Bilateral 11/24/2011 cataract removal 11/19/11, 11/24/11 SLING OPER STRES INCONTINENCE 2004 TONSILLECTOMY HX 195 VAG HYST 250 GM/< W/RMVL TUBEAND/OVARY 1996 uterine prolapse, hyst. bilateral oophorectomy VITRECTOMY MECHANICAL PARS PLANA Left FAMILY HISTORY Problem Relation Age of Onset Cancer Mother Arthritis Mother Kidney Disease Mother Cancer Father lung ALLERGIES Allergen Reactions Shellfish Containin* Unknown Penicillamine Unknown Benadryl [Diphenhyd* Rash Cats Cipro [Ciprofloxaci* Itching Dust Ketamine Unknown Mold Penicillins Rash Shellfish Shortness of Breath Spiriva With Handih* Intolerance not help Sulfa (Sulfonamide * GI Upset Symbicort [Budesoni* Intolerance tremor,shaky Tetanus Toxoid Adso* Intolerance arm swell Current Outpatient Medications Medication Sig Dispense Refill baclofen 5 mg tablet Take 1 tablet by mouth two times a day. 180 tablet 3 levothyroxine (more content not included)...[facility] 10-19-2023 History of Present illness Narrative* Carla Farnsworth, RT(R) - 10/19/2023 2:20 PM EST Radiology Service Progress Note PATIENT NAME: Geoffrey Nassar DATE OF SERVICE: October 19, 2023 TIME: 4:11 PM PATIENT IDENTITY VERIFICATION COMPLETED USING TWO (2) IDENTIFIERS: Name and Date of confirmedby patient verbally. FALL SCREENING: Has the patient had 2 falls in the last year or 1 fall with injury or currently using an Ambulatory Assistive Device (Walker, Cane, Wheelchair, Crutches, etc.)? No PATIENT GENDER DATA: Female. status: : No status: NO. PATIENT RELEVANT IMPLANT DATA REVIEWED: Yes PATIENT PRESENTS WITH AN IMPLANTABLE OR ATTACHED CRUMB PACKER: No RADIOLOGY DEPARTMENT: CT; Exam(s) Completed: Brain PERIPHERAL IV DATA: Not applicable SIGNED BY: RT Andrea(R) October 19, 2023 4:11 PM documented in this encounterK[facility]02-07-2024 History of Present illness Narrative* Ken Contreras MD - 10/14/2023 1:03 PM EST This note was created using [employer]. Subjective Patient presents with: Transition Of Care Transitional Care Management Progress Note The patients TCM visit was performed within the 7 days of discharge. Patient's Date of discharge: October 05, 2023 Date of initial coordinator contact after discharge: 10/06/23 Discharge diagnosis: Fall, head injury, SAH. Medication review completed Yes Provider Documentation: In follow-up of hospitalization, Geoffrey Nassar is a 88 year old female with the chief complaint oftransition of care. I have reviewed the patient s last hospital course including diagnostic testing performed during this hospitalization, their discharge medications, and my assessment and plan with the patient and renuka present at today s visit. Geoffrey lost her balance picking up a twig from her driveway, falling, and injuring her head. [facility] and transferred to [facility] due to bilateral SAH. Her aspirin and meloxicam were discontinued and SAH were monitored. Seizure prevention was prescribed for one week. No other medication changes were made. She was feeling better. Headaches were better. No dizziness, nausea, or vomiting was noted. She will follow up with neurosurgery next week. She has an order for PT and OT but daughter preferred to hold off starting this until after her follow up next week with repeat CT. Review of Systems Constitutional: Negative for appetite change, chills, fatigue and fever. HENT: Negative for congestion, postnasal drip and trouble swallowing. Eyes: Negative for visual disturbance. Respiratory: Negative for cough, shortness of breath and wheezing. Cardiovascular: Negative for chest pain, palpitations and leg swelling. Objective BP 110/66 (BP Site: Left Arm, BP Position: Sitting, BP Cuff Size: Large Adult) Pulse 60 Temp 37C (98.6 F) (Temporal) Resp 12 Wt 76.5 kg (168 lb 11.2 oz) BMI 28.96 kg/m Physical Exam Constitutional: General: She is not in acute distress. HENT: Head: Atraumatic. Eyes: Extraocular Movements: Extraocular movements intact. Cardiovascular: Rate and Rhythm: Normal rate and regular rhythm. Heart sounds: No murmur heard. No gallop. Pulmonary: Effort: No respiratory distress. Breath sounds: Rhonchi present. No wheezing or rales. Abdominal: Palpations: Abdomen is soft. Tenderness: There is no abdominal tenderness. Musculoskeletal: Right lower leg: No edema. Left lower leg: No edema. Neurological: General: No focal deficit present. Mental Status: She is alert. Cranial Nerves: No cranial nerve deficit. Motor: No weakness. Gait: Gait abnormal. Comments: Using cane. Unable to get on exam table. Psychiatric: Attention and Perception: Attention normal. Mood and Affect: Mood normal. Speech: Speech normal. Assessment and Plan 1. Subarachnoid bleed (HCC) - ICD9: 430, ICD10: I60.9 (primary diagnosis) Follow up with neurosurgery as planned. 2. DDD (degenerative disc disease), lumbar - ICD9: 722.52, ICD10: M51.36 Refilled. - BACLOFEN 5 MG TABLET 3. Acquired hypothyroidism - ICD9: 244.9, ICD10: E03.9 Refilled. - LEVOTHYROXINE 88 MCG TABLET 4. Gastroesophageal reflux disease with esophagitis - ICD9: 530.11, ICD10: K21.00 Refilled. - PANTOPRAZOLE 20 MG TABLET,DELAYED RELEASE 5. Depressive disorder w/ seasonal affective disorder - ICD9: 311, ICD10: F32.A Refilled. - PAROXETINE 40 MG TABLET 6. Anxiety - ICD9: 300.00, ICD10: F41.9 Refilled. - PAROXETINE 40 MG TABLET 7. Injury of head, subsequent encounter - ICD9: V58.89, 959.01, ICD10: S09.90XD See above. 8. Bronchiectasis without complication (HCC) - ICD9: 494.0, ICD10: J47.9 - Lung findings and chest X-ray discussed. Call for increased symptoms from baseline. 9. Physical debility - ICD9: 799.3, ICD10: R53.81 PT, OT as ordered. She had benefit from aquatherapy at [facility] a few years ago. She will call for order if she still felt weak after regular PT, OT. She had a walker at home. Ken Contreras MD [facility] NoteHNO ID: [id number] Author: IRIS DELEON PA-C Service: General Surgery Author Type: Physician District Wire Chief Type: Plan of Care Filed: 10/05/2023 13:45 Note Text: Trauma Surgery Plan of Care 10/05/2023 (10/05/2023, 1:45 PM): Met with patient earlier today and discussed code status. She stated that she thinks she has a DNR but would like to remain full code at this time per our discussion. Orders placed. Iris Deleon PA-C 10/05/2023 1:45 [facility]01-29-2024 NoteHNO ID: [id number] Author: IRIS DELEON PA-C Service: General Surgery Author Type: Physician District Wire Chief Type: Progress Notes Filed: 10/05/2023 10:21 Note Text: Trauma Surgery Progress Note SERVICE DATE: 10/05/2023 Trauma Service Pager: For questions or concerns Mon-Fri 6a-5p please page [phone]. After 5pm and on Weekends and Holidays, please page [phone] if in ICU or [phone] if on RNF. SUBJECTIVE: NAEON. Patient notes headache this morning that has improved with pain medications. Denies visual changes, numbness/tingling or weakness. Tolerating diet. No other focal concerns. OBJECTIVE: Vitals: Temp (24hrs), Av.6 ?C (97.8 ?F), Min:36.4 ?C (97.5 ?F), Max:36.6 ?C (97.9 ?F) BP 125/70 Pulse 62 Temp 36.6 ?C (97.9 ?F) (Oral) Resp 18 Ht 162.6 cm (5' 4) Wt 77.6 kg (171 lb 1.2 oz) SpO2 94% BMI 29.37 kg/m? O2 Therapy: Room Air IANDO: Date 10/04/23 0700 - 10/05/23 0659 10/05/23 07 - 10/06/23 0659 Shift 8999-0111 5289-8192 4693-0710 24 Hour Total 4014-6138 6871-7129 2036-8977 24 Hour Total INTAKE PO 560 560 PO 560 560 Shift Total 560 560 OUTPUT Urine 440 440 Void (ml) 220 220 Amount Voided Before Bladder Scan 220 220 Urine Not Saved. 1 x 1 x # of BMs Number of BMs 1 x 1 x Shift Total 440 440 Weight (kg) 77.6 77.6 77.6 77.6 77.6 77.6 77.6 77.6 MEDICATIONS: Current Facility-Administered Medications Medication Dose Route Frequency oxyCODONE IR 2.5-5 mg tab(s) (ROXICODONE) 2.5-5 mg ORAL q 6 H PRN lamoTRIgine 25 mg tab(s) (LaMICtal) 25 mg ORAL DAILY albuterol HFA 90 mcg/actuation 2 Puff (PROVENTIL HFA, VENTOLIN HFA) 2 Puff INHALATION q 4 H PRN amLODIPine 5 mg tab(s) (NORVASC) 5 mg ORAL DAILY pantoprazole DR 40 mg tab(s) (PROTONIX) 40 mg ORAL DAILY (6 AM) PARoxetine 40 mg tab(s) (PAXIL) 40 mg ORAL DAILY levothyroxine 88 mcg tab(s) (SYNTHROID) 88 mcg ORAL DAILY (6 AM) ondansetron 4 mg tab(s) (ZOFRAN) 4 mg ORAL q 6 H PRN Or ondansetron (PF) 4 mg injection (ZOFRAN) 4 mg INTRAVENOUS q 6 H PRN senna-docusate 8.6-50 mg 1 tablet (SENNA-S) 1 tablet ORAL BID acetaminophen 1,000 mg tab(s) (TYLENOL) 1,000 mg ORAL QID albuterol 2.5 mg /3 mL (0.083 %) 2.5 mg (PROVENTIL) 2.5 mg INHALATION QID budesonide 0.5 mg/2 mL 0.5 mg (PULMICORT) 0.5 mg INHALATION BID levETIRAcetam 500 mg injection (KEPPRA) 500 mg INTRAVENOUS BID melatonin 3 mg tab(s) 3 mg ORAL DAILY (8 PM) LORazepam 2 mg (ATIVAN) 2 mg ORAL AT BEDTIME NaCl 0.9% iv flush bag 20 mL INTRAVENOUS PRN Labs: Recent Labs 10/05/23 0521 10/04/23 0346 10/03/23 0048 NA 132* 138 144 K 4.6 4.1 4.0 CHLOR 101 105 112* CO2 23 25 25 BUN 17 20 18 CREAT 0.67 0.83 0.71 GLUC 92 100* 79 ANION 8* 8* 7* CA 9.1 9.2 8.6 MG -- -- 2.1 P -- -- 1.7* WBC 6.88 9.00 11.43* HB 11.9 11.2* 13.5 HCT 38.2 35.2* 42.0 PLT 205 206 252 INR -- -- 1.0 PHYSICAL EXAM: Genl: Appears age appropriate. No acute distress. Resting comfortably. Head/Face: Normocephalic. Atraumatic Eyes: EOMI. L pupil enlarged and irregular compared to right. Resp: Lungs CTAB. No wheezes, rales or rhonchi. Respiratory status stable on RA. CVS: RRR as above. 2+ RA, DP, PT pulses bilaterally. GI: Abdomen is soft, non-tender, non-distended. No guarding or peritoneal signs. MSK: No gross deformities. No clubbing, cyanosis or edema. Normal AROM x 4. Skin: Warm and dry. Not jaundiced. Neuro: AANDOx3. Strength and sensation grossly intact in all extremities. ACOSTA. GCS15. Psych: Normal mood. Normal affect. Appropriate insight into current situation. ASSESSMENT AND PLAN: Assessment Active Hospital Problems Diagnosis Date Noted Trauma 10/03/2023 SAH (subarachnoid hemorrhage) ([facility]) 10/03/2023 Fall 10/03/2023 Assessment: 88 year old female s/p GLF on 10/02/2023 (Transfer from [place]) Imaging performed: 10/02/2023 - CT HN 10/03/2023 - CT CAPTL, repeat CT Brain Traumatic Injuries: Bilateral supratentorial SAH Operations/Procedures: 1. None Care Plan: SAH Neurosurgery consulted Non-op management Given DDAVP for aspirin reversal Home home aspirin Repeat CTH stable on 10/03/2023 No further imaging warranted at this time Q4hr neuro checks Pain control PT/OT Keppra x 7 days Follow-up with Dr. Umanzor in 2 weeks Hyponatremia Na+ 132 from 138 Possibly related to DDAVP administration Monitor Asymptomatic Continue home medications as ordered aside from aspirin Current diet order: DIET REGULAR Pain regimen: Tylenol, prn oxycodone Bowel regimen: Senna-S Labs: As above PPX: DVT: Chemo ppx held in setting of SAH; SCDs; Mobilize Ulcer: NA Vit D level if > 65 yo: 58.6 Consulted Services: Trauma SICU Neurosurgery PT/OT Dispo Planning: PT/OT recs home; OP PT/OT. Case management following. Incidentals: Bronchiectasis within the right middle lobe and lingula. Scattered bilateral tree-in-bud opacities. Follow Up Needs: Neurosurgery - Dr. Umanzor - 2 weeks PCP INPATIENT ATTENDING (more content not included)...[facility] 10-05-2023 NoteHNO ID: [id number] Author: CORINA HOLDER MD Service: Neurosurgery Author Type: Physician Type: Plan of Care Filed: 10/05/2023 07:21 Note Text: Study #[id number]: Traumatic Brain Injury Patient Registry PI: Corina Holder MD Visit: Eligibility check Inclusion Criteria Age 18-99: Yes Radiographic evidence of a TBI confirmatory head computed tomography (CT) : Yes Exclusion Criteria Pwj-Urvnwez-[id number]: No Age < 18 years of age: No Patient is or is in active labor: No Patients with clinical or radiographic evidence of a non-survivable neurological injury (including but not limited to the cessation of brain stem activity, fixed/dilated pupils) : No Physician feels that the patient's overall health and/or confounding injuries make them not a good fit for the registry (Physician Discretion): No After reviewing the above criteria on 10/05/2023 at 7:00 am the patient is Eligible for the [id number]: Traumatic Brain Injury Patient Registry Moekirsten Holder [facility]01-28-2024 NoteHNO ID: [id number] Author: ILENE VILLELA, DIONTE Service: Nursing Author Type: Registered Nurse Type: Progress Notes Filed: 10/04/2023 13:49 Note Text: Pt bladder scanned holding 230 cc, dr erazo notified, ordered to bladder scan at 1500 [facility] NoteHNO ID: [id number] Author: WEN GALICIA MD Service: General Surgery Author Type: Physician Type: Progress Notes Filed: 10/04/2023 09:59 Note Text: Trauma Surgery Progress Note SERVICE DATE: 10/04/2023 Trauma Service Pager: For questions or concerns Mon-Fri 6a-5p please page [phone]. After 5pm and on Weekends and Holidays, please page [phone] if in ICU or [phone] if on RNF. SUBJECTIVE: Patient seen this morning on rounds. Overnight, she had a brief episode where her SpO2 dropped down 86% on room air. She was placed on NC 3L to which she responded to. Nursing then weaned NC down to 2L. Patient also reported to be retaining urine. Straight cath ordered. Patient denies any pain, nausea, vomiting, diarrhea, numbness, tingling, weakness, other concerns. OBJECTIVE: Vitals: Temp (24hrs), Av.5 ?C (97.7 ?F), Min:36.2 ?C (97.2 ?F), Max:36.7 ?C (98.1 ?F) BP 120/59 Pulse 60 Temp 36.4 ?C (97.6 ?F) (Oral) Resp 20 Ht 162.6 cm (5' 4) Wt 77.6 kg (171 lb 1.2 oz) SpO2 95% BMI 29.37 kg/m? O2 Therapy: Nasal Cannula IANDO: Date 10/03/23699 - 10/04/23 0659 10/04/23699 - 10/05/23 0659 Shift 1526-9783 3785-1127 4110-7148 24 Hour Total 2141-6614 6655-8062 6804-2797 24 Hour Total INTAKE PO 120 120 PO 120 120 IV 250 250 Volume (mL) (sodium phosphate 45 mmol in D5W 250 mL) 250 250 Shift Total 370 370 OUTPUT Urine 100 0 100 Output ( External Collection Device 10/03/23) 100 0 100 Shift Total 100 0 100 Weight (kg) 77.6 77.6 77.6 77.6 77.6 77.6 77.6 77.6 MEDICATIONS: Current Facility-Administered Medications Medication Dose Route Frequency lamoTRIgine 25 mg tab(s) (LaMICtal) 25 mg ORAL DAILY albuterol HFA 90 mcg/actuation 2 Puff (PROVENTIL HFA, VENTOLIN HFA) 2 Puff INHALATION q 4 H PRN amLODIPine 5 mg tab(s) (NORVASC) 5 mg ORAL DAILY pantoprazole DR 40 mg tab(s) (PROTONIX) 40 mg ORAL DAILY (6 AM) PARoxetine 40 mg tab(s) (PAXIL) 40 mg ORAL DAILY levothyroxine 88 mcg tab(s) (SYNTHROID) 88 mcg ORAL DAILY (6 AM) ondansetron 4 mg tab(s) (ZOFRAN) 4 mg ORAL q 6 H PRN Or ondansetron (PF) 4 mg injection (ZOFRAN) 4 mg INTRAVENOUS q 6 H PRN senna-docusate 8.6-50 mg 1 tablet (SENNA-S) 1 tablet ORAL BID acetaminophen 1,000 mg tab(s) (TYLENOL) 1,000 mg ORAL QID oxyCODONE IR 5-10 mg tab(s) (ROXICODONE) 5-10 mg ORAL q 6 H PRN albuterol 2.5 mg /3 mL (0.083 %) 2.5 mg (PROVENTIL) 2.5 mg INHALATION QID budesonide 0.5 mg/2 mL 0.5 mg (PULMICORT) 0.5 mg INHALATION BID levETIRAcetam 500 mg injection (KEPPRA) 500 mg INTRAVENOUS BID melatonin 3 mg tab(s) 3 mg ORAL DAILY (8 PM) LORazepam 2 mg (ATIVAN) 2 mg ORAL AT BEDTIME NaCl 0.9% iv flush bag 20 mL INTRAVENOUS PRN Labs: Recent Labs 10/04/23 0346 10/03/23 0048 NA 138 144 K 4.1 4.0 CHLOR 105 112* CO2 25 25 BUN 20 18 CREAT 0.83 0.71 GLUC 100* 79 ANION 8* 7* CA 9.2 8.6 MG -- 2.1 P -- 1.7* WBC 9.00 11.43* HB 11.2* 13.5 HCT 35.2* 42.0 PLT 206 252 INR -- 1.0 PHYSICAL EXAM: Genl: Appears age appropriate. No acute distress. Resting comfortably. Head/Face: Normocephalic. Atraumatic Eyes: EOMI. PERRLA. Sclera not icteric, not injected Resp: Unlabored breathing on 2 L NC CVS: Extremities warm and well perfused GI: Abdomen is soft, non-tender, non-distended. No guarding or peritoneal signs. MSK: No gross deformities Skin: Warm and dry. Not jaundiced. Neuro: Alert, oriented, motor and sensory intact in upper and lowers bilaterally Psych: Normal mood. Normal affect. Appropriate insight into current situation. ASSESSMENT AND PLAN: Assessment Active Hospital Problems Diagnosis Date Noted Trauma 10/03/2023 SAH (subarachnoid hemorrhage) (HCC) 10/03/2023 Fall 10/03/2023 Assessment: 88 year old female with PMH HTN, depression, GERD, hypothyroidism, bradycardia (S/p pacemaker), prior cholecystectomy, STEPHON BSO presents from [place] with traumatic scattered SAH status post GLF with Imaging performed: CT HN (10/03) Traumatic Injuries: Multiple bilateral parietal and frontoparietal cortical SAH, small focus within right temporal lobe. Operations/Procedures: 1. NA Care Plan: Scattered Traumatic SAH NSGY following Status post DDAVP in ED Cont to hold ASA and thinners Transferred to [facility] from SICU Cont keppra 7 days and follow up outpatient with Dr. Umanzor in 2 weeks with repeat cth Q4 neurochecks Bradycarida, Frequent falls Echo - EF 61% Pacemaker check Anxiety Ativan at night Reordered given neurochecks have decreased Current diet order: DIET REGULAR Pain regimen: asher tylenol, prn oxy Bowel regimen Senna s Labs: CBC, BMP PPX: DVT: Holding Ulcer: NA Vit D level if > 65 yo: Pending Consulted Services: NSGY SICU Dispo Planning: PT recommending home /OT recs TBD. Case management following. Incidentals: NA Follow Up Needs: TBD Pending discussion with attending physician, Dr. Galicia SIGNATURE: Nirmala Lauren DO PATIENT NAME: Geoffrey Valentin (more content not included)...[facility]01-27-2024 History of Past illness Narrative* Problem Noted Date Diagnosed Date Resolved Date Trauma 10/03/2023 10/29/2023 SAH (subarachnoid hemorrhage) 10/03/2023 10/29/2023 Fall 10/03/2023 10/29/2023 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 04/24/2021 Bradycardia 01/18/2021 08/01/2022 Conjunctivitis 11/06/2020 04/24/2021 Pseudophakia, both eyes 07/23/2020 0804/2021 Glaucoma suspect of both eyes 05/01/2020 04/24/2021 Narrow angle glaucoma suspect of both eyes 05/01/2020 04/24/2021 Pain in right hip 08/05/2017 09/30/2017 Gait disturbance 01/29/2017 06/24/2017 Pulmonary nodule 01/08/2017 09/30/2017 Anticoagulated 11/25/2016 09/30/2017 Pulmonary embolism with acute cor pulmonale 11/24/2016 12/29/2017 Overview: Dr. Jaswant Miller, pulmonary. On home oxygen therapy 11/24/201606/24 Medicare annual wellness visit, initial 06/22/2012 06/24/2017 Foraminal stenosis of cervical region 01/30/2012 06/24/2017 Myofascial pain 01/30/2012 05/20/2016 Lumbar strain 01/30/2012 09/23/2016 Lumbar spondylosis 01/30/2012 7 Other disorder of muscle, li gament, and fascia 07/10/2011 12/24/2015 Enthesopathy of hip region 07/08/2011 0 04/24/2021 Hyperlipemia 06/18/2010 01/08/2017 Dizziness and giddiness 08/27/2009 03/0 03/2013 Pain in joint, pelvic region and thigh 12/13/2007 05/20/2016 Other specified disorders of rotator cuff syndrome of shoulder and allied disorders 04/09/2007 09/23/2016 Bronchiectasis 07/29/2006 11/27/2009 Unspecified asthma(493.90) 03/12/2006 0 01/20/2010 NERVE COMPRESSION POSTOPERATIVE 12/19/2005 09/23/2016 Arthropathy, unspecified, site unspecified 10/07/2005 12/24/2015 ASA CLASS II 03/17/2005 09/23/2016 Abdominal pain, left lower quadrant 11/11/2012 Alternating constipation and diarrhea 07/04/2020 documented as of this encounter (statuses as of 10/29/2023) [facility]01-27-20[facility] History of Past illness Narrative* Problem Noted Date Diagnosed Date Resolved Date Trauma 10/03/2023 10/29/2023 SAH (subarachnoid hemorrhage) 10/03/2023 10/29/2023 Fall 10/03/2023 10/29/2023 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 04/24/2021 Bradycardia 01/18/2021 08/01/2022 Conjunctivitis 11/06/2020 04/24/2021 Pseudophakia, both eyes 07/23/2020 0804/2021 Glaucoma suspect of both eyes 05/01/2020 04/24/2021 Narrow angle glaucoma suspect of both eyes 05/01/2020 04/24/2021 Pain in right hip 08/05/2017 09/30/2017 Gait disturbance 01/29/2017 06/24/2017 Pulmonary nodule 01/08/2017 09/30/2017 Anticoagulated 11/25/2016 09/30/2017 Pulmonary embolism with acute cor pulmonale 11/24/2016 12/29/2017 Overview: Dr. Jaswant Miller, pulmonary. On home oxygen therapy 11/24/201606/24 Medicare annual wellness visit, initial 06/22/2012 06/24/2017 Foraminal stenosis of cervical region 01/30/2012 06/24/2017 Myofascial pain 01/30/2012 05/20/2016 Lumbar strain 01/30/2012 09/23/2016 Lumbar spondylosis 01/30/2012 7 Other disorder of muscle, li gament, and fascia 07/10/2011 12/24/2015 Enthesopathy of hip region 07/08/2011 0 04/24/2021 Hyperlipemia 06/18/2010 01/08/2017 Dizziness and giddiness 08/27/2009 03/03/2013 Pain in joint, pelvic region and thigh 12/13/2007 05/20/2016 Other specified disorders of rotator cuff syndrome of shoulder and allied disorders 04/09/2007 09/23/2016 Bronchiectasis 07/29/2006 11/27/2009 Unspecified asthma(493.90) 03/12/2006 0 01/20/2010 NERVE COMPRESSION POSTOPERATIVE 12/19/2005 09/23/2016 Arthropathy, unspecified, site unspecified 10/07/2005 12/24/2015 ASA CLASS II 03/17/2005 09/23/2016 Abdominal pain, left lower quadrant 11/11/2012 Alternating constipation and diarrhea 07/04/2020 documented as of this encounter (statuses as of 11/04/2023) [facility] History of Past illness Narrative* Problem Noted Date Diagnosed Date Resolved Date Trauma 10/03/2023 10/29/2023 SAH (subarachnoid hemorrhage) 10/03/2023 10/29/2023 Fall 10/03/2023 10/29/2023 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 04/24/2021 Bradycardia 01/18/2021 08/01/2022 Conjunctivitis 11/06/2020 04/24/2021 Pseudophakia, both eyes 07/23/202004/07 Glaucoma suspect of both eyes 05/01/2020 04/24/2021 Narrow angle glaucoma suspect of both eyes 05/01/2020 04/24/2021 Pain in right hip 08/05/2017 09/30/2017 Gait disturbance 01/29/2017 06/24/2017 Pulmonary nodule 01/08/2017 09/30/2017 Anticoagulated 11/25/2016 09/30/2017 Pulmonary embolism with acute cor pulmonale 11/24/2016 12/29/2017 Overview: Dr. Jaswant Miller, pulmonary. On home oxygen therapy 11/24/201606/24 Medicare annual wellness visit, initial 06/22/2012 06/24/2017 Foraminal stenosis of cervical region 01/30/2012 06/24/2017 Myofascial pain 01/30/2012 05/20/2016 Lumbar strain 01/30/2012 09/23/2016 Lumbar spondylosis 01/30/2012 7 Other disorder of muscle, li gament, and fascia 07/10/2011 12/24/2015 Enthesopathy of hip region 07/08/2011 0 04/24/2021 Hyperlipemia 06/18/2010 01/08/2017 Dizziness and giddiness 08/27/2009 0303/2013 Pain in joint, pelvic region and thigh 12/13/2007 05/20/2016 Other specified disorders of rotator cuff syndrome of shoulder and allied disorders 04/09/2007 09/23/2016 Bronchiectasis 07/29/2006 11/27/2009 Unspecified asthma(493.90) 03/12/2006 0 01/20/2010 NERVE COMPRESSION POSTOPERATIVE 12/19/2005 09/23/2016 Arthropathy, unspecified, site unspecified 10/07/2005 12/24/2015 ASA CLASS II 03/17/2005 09/23/2016 Abdominal pain, left lower quadrant 11/11/2012 Alternating constipation and diarrhea 07/04/2020 documented as of this encounter (statuses as of 11/05/2023) [facility] History of Past illness Narrative* Problem Noted Date Diagnosed Date Resolved Date Trauma 10/03/2023 10/29/2023 SAH (subarachnoid hemorrhage) 10/03/2023 10/29/2023 Fall 10/03/2023 10/29/2023 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 04/24/2021 Bradycardia 01/18/2021 08/01/2022 Conjunctivitis 11/06/2020 04/24/2021 Pseudophakia, both eyes 07/23/202004/07 Glaucoma suspect of both eyes 05/01/2020 04/24/2021 Narrow angle glaucoma suspect of both eyes 05/01/2020 04/24/2021 Pain in right hip 08/05/2017 09/30/2017 Gait disturbance 01/29/2017 06/24/2017 Pulmonary nodule 01/08/2017 09/30/2017 Anticoagulated 11/25/2016 09/30/2017 Pulmonary embolism with acute cor pulmonale 11/24/2016 12/29/2017 Overview: Dr. Jaswant Miller, pulmonary. On home oxygen therapy 11/24/201606/24 Medicare annual wellness visit, initial 06/22/2012 06/24/2017 Foraminal stenosis of cervical region 01/30/2012 06/24/2017 Myofascial pain 01/30/2012 05/20/2016 Lumbar strain 01/30/2012 09/23/2016 Lumbar spondylosis 01/30/2012 7 Other disorder of muscle, li gament, and fascia 07/10/2011 12/24/2015 Enthesopathy of hip region 07/08/2011 0 04/24/2021 Hyperlipemia 06/18/2010 01/08/2017 Dizziness and giddiness 08/27/2009 0303/2013 Pain in joint, pelvic region and thigh 12/13/2007 05/20/2016 Other specified disorders of rotator cuff syndrome of shoulder and allied disorders 04/09/2007 09/23/2016 Bronchiectasis 07/29/2006 11/27/2009 Unspecified asthma(493.90) 03/12/2006 0 01/20/2010 NERVE COMPRESSION POSTOPERATIVE 12/19/2005 09/23/2016 Arthropathy, unspecified, site unspecified 10/07/2005 12/24/2015 ASA CLASS II 03/17/2005 09/23/2016 Abdominal pain, left lower quadrant 11/11/2012 Alternating constipation and diarrhea 07/04/2020 documented as of this encounter (statuses as of 11/10/2023) [facility] History of Past illness Narrative* Problem Noted Date Diagnosed Date Resolved Date Trauma 10/03/2023 10/29/2023 SAH (subarachnoid hemorrhage) 10/03/2023 10/29/2023 Fall 10/03/2023 10/29/2023 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 04/24/2021 Bradycardia 01/18/2021 08/01/2022 Conjunctivitis 11/06/2020 04/24/2021 Pseudophakia, both eyes 07/23/202004/07 Glaucoma suspect of both eyes 05/01/2020 04/24/2021 Narrow angle glaucoma suspect of both eyes 05/01/2020 04/24/2021 Pain in right hip 08/05/2017 09/30/2017 Gait disturbance 01/29/2017 06/24/2017 Pulmonary nodule 01/08/2017 09/30/2017 Anticoagulated 11/25/2016 09/30/2017 Pulmonary embolism with acute cor pulmonale 11/24/2016 12/29/2017 Overview: Dr. Jaswant Miller, pulmonary. On home oxygen therapy 11/24/201606/24 Medicare annual wellness visit, initial 06/22/2012 06/24/2017 Foraminal stenosis of cervical region 01/30/2012 06/24/2017 Myofascial pain 01/30/2012 05/20/2016 Lumbar strain 01/30/2012 09/23/2016 Lumbar spondylosis 01/30/2012 7 Other disorder of muscle, li gament, and fascia 07/10/2011 12/24/2015 Enthesopathy of hip region 07/08/2011 0 04/24/2021 Hyperlipemia 06/18/2010 01/08/2017 Dizziness and giddiness 08/27/2009 03/0 03/2013 Pain in joint, pelvic region and thigh 12/13/2007 05/20/2016 Other specified disorders of rotator cuff syndrome of shoulder and allied disorders 04/09/2007 09/23/2016 Bronchiectasis 07/29/2006 11/27/2009 Unspecified asthma(493.90) 03/12/2006 0 01/20/2010 NERVE COMPRESSION POSTOPERATIVE 12/19/2005 09/23/2016 Arthropathy, unspecified, site unspecified 10/07/2005 12/24/2015 ASA CLASS II 03/17/2005 09/23/2016 Abdominal pain, left lower quadrant 11/11/2012 Alternating constipation and diarrhea 07/04/2020 documented as of this encounter (statuses as of 12/07/2023) [facility]01-24-2024 Instructions* Patient Instructions* Dia Lopez, TITLE INSURANCE SALES REPRESENTATIVE.MICROBIOLOGICAL LABORATORY TECHNICIAN - 09/30/2023 2:46 PM EST Screening schedule The following prevention plan is recommended: RSV Vaccine(1 - 1-dose 60+ series) Never done Covid-19 Vaccine( season) due on 05/08/2023 WHAT YOU CAN DO TO PREVENT FALLS Many falls can be prevented. By making some changes, you can lower your chances of falling. Four things YOU can do to prevent falls for you* and your caregiver 1. Begin a regular exercise program Exercise is one of the most important ways to lower your chances of falling. It makes you stronger and helps you feel better. Exercises that improve balance and coordination (like Basilio Chi) are the most helpful. Lack of exercise leads to weakness and increases your chances of falling. Ask your doctor or health care provider about the best type of exercise program for you. 2. Have your health care provider review your medicines Have your doctor or pharmacist review all the medicines you take, even kiit-swg-gbwoppy medicines. As you get older, the way medicines work in your body can change. Some medicines, or combinations of medicines, can make you sleepy or dizzy andcan cause you to fall. 3. Have your vision checked Have your eyes checked by an eye doctor at least once a year. You may be wearing the wrong glasses or have a condition like glaucoma or cataracts that limits your vision. Poor vision can increase your chances of falling. 4. Make your home safer About half of all falls happen at home. To make your home safer: Remove things you can trip over (like papers, books, clothes, and shoes) from stairs and places where you walk. Remove small throw rugs or use double-sided tape to keep the rugs from slipping. Keep items you use often in cabinets you can reach easily without using a step stool. Have grab bars put in next to your toilet and in the tub or shower. Use non-slip mats in the bathtub and on shower floors. Improve the lighting in your home. As you get older, you need brighter lights to see well. Hang light-weight curtains or shades to reduce glare. Have handrails and lights put in on all staircases. Wear shoes both inside and outside the house. Avoid going barefoot or wearing slippers. For more information, contact: Centers for Disease Control and Prevention www.cdc.gov/injury * This information may not apply if you have certain medical conditions. documented in this encounterK[facility]01-24-2024 History of Present illness Narrative* Dia Lopez APRN.BERTHA - 09/30/2023 2:43 PM EST Geoffrey Nassar is a 88 year old female here for a Medicare wellness visit. Medicare Health Risk Assessment General Health Fair Exercise: Minutes/Day 0 min Exercise: Days/Week 0 days Alcohol: Daily Use Monthly or less Alcohol: Drinks/Day 1 or 2 Alcohol: 6 or more drinks Never Feel off balance Yes Concerns: Teeth/Dentures No Concerns: Sexual function No Troubled by feelings Anxious; Stressed Frequency: Eating healthy diet Nearly every day ADLs requiring help None of the above Safety precautions in home/vehicle Yes Smoke, vape, chews tobacco No Difficulty hearing No Difficulty seeing No Current Providers Specialists: I have reviewed specialist-related care of the patient in the medical record. Current care team: Patient Care Team: Ken Contreras MD as PCP - General (Internal Medicine) Outside specialists seen: Cardiology- Dr. Mcpherson, Pulmonology- Dr. Jaswant Miller, Uro-gynecology- Dr. Hansen, Pharmacy Stock Clerk-Dr. Jolly, Plow Shaker-Dr. Neil Hawthorne, ophthalmology- [facility] Medical/Family history review Reviewed and updated problem list, medical/surgical/family/social history, medications, and allergies. Opioid use review Opioid Medications (last 90 days) Some values may be hidden. Unless noted otherwise, only the newest values recorded on each date aredisplayed. Opioid Medications No data to display. Depression screening Depression Screening PHQ-2 Score PHQ-9 Score JESSENIA-2 Total Score JESSENIA-7 Total Score 09/29/2023 2 8 2 4 Depression screening tool completed and reviewed. Based on score and interview, patient is not at risk for depression. Screening tool discussed with patient, and I recommended no further interventionat this time. Cognitive screening Mini Cog Score: 4 Cognitive screening reviewed and no further action needed (score 3-5) Functional Observation Was the patient's Timed Up & Go test unsteady or ? 12 seconds? No Advance Care Planning Surrogate decision maker and/or advance care plan documented Measurements BP 108/78 Pulse 61 Resp 16 Ht 5' 2.402 (1.59m) Wt 172 lb (78.0kg) SpO2 97% BMI 31.06 kg/(m^2). Additional screenings: No results found. Assessment/Plan Medicare annual wellness visit, subsequent (Z00.00) - Counseled on healthy diet and regular exercise - Fall avoidance information provided - Personalized prevention plan provided Additional Concerns The following concerns were also discussed with the patient: Depression- taking Paxil as prescribed. She does report feeling down and a little depressed along with anxiety lately due to her brother's failing health. Feels like it is manageable and not affecting daily life. Bronchiectasis- air route traffic controller is Dr. Miller with [facility]. Symptoms are stable. Using Breo Ellipta daily as instructed. Rarely uses albuterol inhaler. OAB- urologist is Dr. Hansen. She was recently switched from Mybertiq to Gemtasa due to lack of efficacy. Symptoms are overall stable now. PHYSICAL EXAM BP 108/78 Pulse 61 Resp 16 Ht 158.5 cm (5' 2.4) Wt 78 kg (172 lb) SpO2 97% BMI 31.06 kg/m GENERAL: well appearing, alert, in no acute distress CARDIOVASCULAR: regular rate and rhythm. No murmur, rubs or gallops. PULMONARY: clear to auscultation, no wheezing, rhonchi, or crackles ASSESSMENT/PLAN: 1. Medicare annual wellness visit, subsequent - ICD9: V70.0, ICD10: Z00.00 (primary diagnosis) See medicare wellness plan 2. Depression, recurrent (HCC) - ICD9: 296.30, ICD10: F33.9 Stable on Paxil 3. Bronchiectasis without complication (HCC) - ICD9: 494.0, ICD10: J47.9 stable 4. Stage 3 chronic kidney disease, unspecified whether stage 3a or 3b CKD (HCC) - ICD9: 585.3, ICD10: N18.30 - eGFR: 62 Stable - Counseled on avoiding NSAIDs, adequate hydration - Counseled on low sodium diet Dia Lopez APRN.MICROBIOLOGICAL LABORATORY TECHNICIAN documented in this encounterKet[facility]11-28-2023 History of Present illness Narrative* Bonnie Escobar Mammo Tech - 08/04/2023 1:30 PM EST Radiology Service Progress Note PATIENT NAME: Geoffrey Nassar DATE OF SERVICE: August 04, 2023 TIME: 2:04 PM PATIENT IDENTITY VERIFICATION COMPLETED USING TWO (2) IDENTIFIERS: Name and Date of confirmedby patient verbally. FALL SCREENING: Has the patient had 2 falls in the last year or 1 fall with injury or currently using an Ambulatory Assistive Device (Walker, Cane, Wheelchair, Crutches, etc.)? No PATIENT GENDER DATA: Female. status: : No status: NO. PATIENT RELEVANT IMPLANT DATA REVIEWED: Not Applicable RADIOLOGY DEPARTMENT: Mammography PERIPHERAL IV DATA: Not applicable SIGNED BY: Nithya Pickens August 04, 2023 2:04 PM documented in this encounterKet[facility]10-31-2023 History of Present illness Narrative* William Zamudio Mammo Tech - 07/07/2023 1:30 PM EDT Radiology Service Progress Note PATIENT NAME: Geoffrey Nassar DATE OF SERVICE: July 07, 2023 TIME: 2:28 PM PATIENT IDENTITY VERIFICATION COMPLETED USING TWO (2) IDENTIFIERS: Name and Date of confirmedby patient verbally. FALL SCREENING: Has the patient had 2 falls in the last year or 1 fall with injury or currently using an Ambulatory Assistive Device (Walker, Cane, Wheelchair, Crutches, etc.)? No PATIENT GENDER DATA: Female. status: : No status: NO. PATIENT RELEVANT IMPLANT DATA REVIEWED: Not Applicable RADIOLOGY DEPARTMENT: Mammography PERIPHERAL IV DATA: Not applicable SIGNED BY: Nithya Jolley July 07, 2023 2:28 PM documented in this encounterKettering [facility]09-14-2023 History of Present illness Narrative* Dia Thayer APRN.MICROBIOLOGICAL LABORATORY TECHNICIAN - 05/21/2023 1:52 PM EDT Images from the original note were not included. CC: Patient presents with: ER F/U: 05/18/23 HPI Geoffrey Nassar is a 88 year old female who presents today for above. Patient presented to [facility] ER on05/18 with injury to face and right knee from tripping and falling on sidewalk. CT imaging of the brain, C-spine and facial bones were negative. Right knee x-ray also negative. Today she reports bruising to her face looks worse but pain has improved. She has a headache intermittently that is no worse than a 3 out of 10, relieved with Tylenol. Right knee is bruised with several abrasions, one of which still bleeds at times. Denies significant knee pain and swelling has improved. Denies knee locking up, feeling likes it's going to give out or loss of ROM. She is also treating facial and knee pain with ice which does provide temporary relief. Denies dizziness, lightheadedness, confusion, disorientation, numbness/tingling, weakness, tremor, difficulty with coordination/balance, slurred speech, facial drooping. REVIEW OF SYSTEMS See HPI PAST MEDICAL HISTORY Diagnosis Date Bradycardia 01/18/2021 Bronchiectasis without complication (HCC) 11/27/2009 Dr. Jaswant Miller, pulmonary. 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 Diverticulosis of small intestine (without mention of hemorrhage) Enthesopathy of hip region 07/08/2011 Essential hypertension 05/25/2008 Extrinsic asthma 01/29/2006 Family history of malignant neoplasm of gastrointestinal tract liver cancer Foraminal stenosis of cervical region 01/30/2012 Gait disturbance 01/29/2017 Gastroesophageal reflux disease with esophagitis 05/13/2013 HERNIA UMBILICAL 12/19/2005 Hypothyroidism 03/17/2005 Irritable bowel syndrome with both constipation and diarrhea 09/23/2016 Oral murray 10/29/2020 Pacemaker 07/25/2021 Pulmonary embolism with acute cor pulmonale (HCC) 11/24/2016 She was initially thought to have a NSTEMI, but was found to be a PE with Right Strain and NOT a NSTEMI. Pulmonary nodule 01/08/2017 Tubular adenoma of colon 12/29/2017 PAST SURGICAL HISTORY Procedure Laterality Date CHOLECYSTECTOMY 1998 COLONOSCOPY FLX DX W/COLLJ SPEC WHEN PFRMD 12/18/2005 COLONOSCOPY FLX DX W/COLLJ SPEC WHEN PFRMD 09/17/2011 COLONOSCOPY FLX DX W/COLLJ SPEC WHEN PFRMD 11/30/2017 Colonoscopy - adenomatous polyp-5 year follow-up EGD 05/29/2017 LASER IRIDOPLASTY OS (LEFT EYE) Left LASER IRIDOTOMY OD (RIGHT EYE) Right PACEMAKER INSERTSION 05/29/2021 dual lead PAST SURGICAL HISTORY OF 09/2007 jacinto eyelid removal dropping skin PAST SURGICAL HISTORY OF Bilateral 11/24/2011 cataract removal 11/19/11, 11/24/11 SLING OPER STRES INCONTINENCE 2004 TONSILLECTOMY HX 1956 VAG HYST 250 GM/< W/RMVL TUBE&/OVARY 1996 uterine prolapse, hyst. bilateral oophorectomy VITRECTOMY MECHANICAL PARS PLANA Left ALLERGIES Shellfish Containing Products, Penicillamine, Benadryl [Diphenhydramine Hcl], Cats, Cipro[Ciprofloxacin], Dust, Ketamine, Mold, Penicillins, Shellfish, Spiriva With Handihaler [Tiotropium [place]], Sulfa (Sulfonamide Antibiotics), Symbicort [Budesonide-Formoterol], Tetanus Toxoid Adsorbed, and Tree's [Other] MEDICATIONS ergocalciferol 50,000 unit capsule (VITAMIN D2, DRISDOL) Take 1 capsule by mouth every 4 weeks. LORazepam (ATIVAN) 2 mg tab Take 1 tablet by mouth daily at bedtime for 90 days. mirabegron (MYRBETRIQ) 50 mg Tb24 Take 1 tablet by mouth once daily. cephALEXin (KEFLEX) 250 mg capsule baclofen (LIORESAL) 5 mg tablet Take 1 tablet by mouth twice daily. levothyroxine (SYNTHROID) 88 mcg tablet TAKE 1 TABLET DAILY EXCEPT DO NOT TAKE ON SUNDAYS. TAKE ON AN EMPTY STOMACH meloxicam (MOBIC) 15 mg tablet Take 1 tablet by mouth once daily. pantoprazole DR (PROTONIX) 20 mg tablet Take 2 tablets by mouth once daily. PARoxetine (PAXIL) 40 mg tablet Take 1 tablet by mouth once daily. amLODIPine (NORVASC) 5 mg tablet Take 1 tablet by mouth once daily. lisinopril (ZESTRIL) 40 mg tablet Take 1 tablet by mouth once daily. lamoTRIgine (LAMICTAL) 25 mg tablet Take 1 tablet by mouth once daily. brimonidine-timolol (COMBIGAN) 0.2-0.5 % ophthalmic solution Use 1 Drop in the left eye twice daily. latanoprost (XALATAN) 0.005 % ophthalmic solution Use 1 Drop in both eyes daily at bedtime. BREO ELLIPTA 100-25 mcg/dose inhaler triamcinolone (KENALOG) 0.025 % cream Apply to affected area once daily. vit C/E/zinc ox/trevor/lut/zeax (ICAPS AREDS2 ORAL) loratadine (CLARITIN REDITABS) 10 mg dissolvable tablet Take 1 tablet by mouth once daily as needed(allergies). DULCOLAX, BISACODYL, ORAL Take 1 tablet by mouth as needed. aspirin, enteric coated (ASPIRIN, ENTERIC COATED) 81 mg EC tablet Take 81 mg by mouth once daily. acetaminophen (TYLENOL ARTHRITIS PAIN) 650 mg CR tablet Take 1 tablet by mouth daily at bedtime. polyethylene glycol 3350 (MIRALAX, GLYCOLAX) 17 gram/dose powder Drink a mix of 1 scoop in 8oz of water/beverage once daily as needed for constipation. cyanocobalamin (VITAMIN B-12) 1,000 mcg tab Take 1,000 mcg by mouth once daily. albuterol HFA (VENTOLIN HFA) 90 mcg/actuation inhaler Inhale 2 Puffs as instructed every 4 hours asneeded for Wheezing/Shortness of Breath. MULTIVITAMIN TAB Take one(1) tablet daily. FAMILY HISTORY Problem Relation Age of Onset Cancer Mother Arthritis Mother Kidney Disease Mother Cancer Father lung Social History Tobacco Use Smoking status: Former Packs/day: 0.50 Years: 10.00 Additional pack years: 0.00 Total pack years: 5.00 Types: Cigarettes Quit date: 05/14/1965 Years since quittin.0 Smokeless tobacco: Never Vaping Use Vaping Use: Never used Substance Use Topics Alcohol use: Yes Comment: 1/2 glass of wine twice per month Drug use: No BP 116/68 Pulse 60 Temp 36.6 C (97.8 F) Resp 18 Wt 79.9 kg (176 lb 1.6 oz) SpO2 99% BMI31.95 kg/m Physical Exam Vitals reviewed. Constitutional: General: She is not in acute distress. Appearance: She is not toxic-appearing. HENT: Head: Eyes: Extraocular Movements: Extraocular movements intact. Conjunctiva/sclera: Conjunctivae normal. Musculoskeletal: Right knee: Swelling, ecchymosis and bony tenderness present. No deformity or effusion. Normal range of motion. Normal alignment. Legs: Neurological: Mental Status: She is alert. DATA REVIEWED: Outside chart from [facility] ER reviewed. ASSESSMENT/PLAN: 1. Fall on same level from slipping, tripping or stumbling, subsequent encounter - ICD9: V58.89, E885.9, ICD10: W01.0XXD (primary diagnosis) Injuries healing as expected. No concerning findings on today's exam. No symptoms of concussion. Continue with Tylenol as needed for pain along with ice. Follow-up as needed for any persistent or worsening symptoms. 2. Abrasion, multiple sites - ICD9: 919.0, ICD10: T07.XXXA No signs of infection. Patient told ER personnel her tetanus was up to date however she has not hadone since 2011. Recommend updating today, she is agreeable. - TD VACCINE, AGE 7+ YR, 5 LF TETANUS (TENIVAC) 3. Injury of head, subsequent encounter - ICD9: V58.89, 959.01, ICD10: S09.90XD See #1 4. Injury of right knee, subsequent encounter - ICD9: V58.89, 959.7, ICD10: S89.91XD See #1 5. Need for vaccine for DT (diphtheria-tetanus) - ICD9: V06.5, ICD10: Z23 See #2 6. Encounter for immunization - ICD9: V03.89, ICD10: Z23 - INFLUENZA VACCINE, PRSV FREE, AGE 65+ YR, HIGH DOSE, QUADRIVALENT (FLUZONE HIGH-DOSE) 7. Screening mammogram for breast cancer - ICD9: V76.12, ICD10: Z12.31 - SOPHIE SCREENING Prescription instructions reviewed with patient as applicable. Potential red flag symptoms discussed with the patient. Reviewed appropriate action plan to take if red flag symptoms occur. Patient agreeable to treatment plan. Dia Thayer APRN.BERTHA documented in this encounterKettering [facility]08-22-2023 Miscellaneous Notes* Telephone Encounter - Cindy Pathak LPN - 04/28/2023 1:38 PM EDT Last office visit: 01/30/2023 Next appointment scheduled: 08/05/23 Last labs: 07/25/22 last vitamin d level Patient phones requesting refills as follows: Requested Prescriptions Pending Prescriptions Disp Refills ergocalciferol 50,000 unit capsule (VITAMIN D2, DRISDOL) 3 capsule 3 Sig: Take 1 capsule by mouth every 4 weeks. Cindy Pathak LPN documented in this encounterKettering [facility]07-05-2023 Miscellaneous Notes* Telephone Encounter - Kailey Caraballo LPN - 03/11/2023 9:36 AM EDT Patient has been identified by name and date of : Yes, Patient phones for refill(s): Requested Prescriptions Pending Prescriptions Disp Refills LORazepam (ATIVAN) 2 mg tab 30 tablet 2 Sig: Take 1 tablet by mouth daily at bedtime for 90 days. Date of last office visit in primary care: 01/30/2023 Medicare Wellness: 08/05/2023 Last 2 Encounter Wt Readings: Date: Wt: 01/30/2023 79.8 kg (176 lb) 01/09/2023 80.9 kg (178 lb 6.4 oz) Previous labs/tests for medication: Not applicable Please advise. Thank you. Kailey Caraballo LPN documented in this encounterKettering [facility] Troy06-12-2023 Miscellaneous Notes* Telephone Encounter - Adelaida Almendarez LPN - 02/16/2023 3:42 PM EDT Patient calling said she has [facility] and told her on hold and would need all new rx. This nurse called [facility] and spoke to Gudelia and all 4 medications have been put on hold back in December and no need for new rx. Not sure why she was told need for new rx, no need for that. The patient has to call and release the rx's so can be processed and sent to her address, I was unable to do that for her since I do not have that authority. Phoned patient back and told her to call customer service and they should be able to process the 4 rx's and send them out to her. Cancelling this request for new rx since not needed. documented in this encounterKettering [facility] Troy05-05-2023 Discharge summary Author Shad Hunter [facility] January 09, 2023 10:18pm Note Date/Time January 09, 2023 7:07pm [facility] Medical Records Department [address] [place] [address] Emergency Department Summary 01/09/23 MR#: [id number] Acct: [id number] Name: GEOFFREY NASSAR Rep #:[id number] : 1935 87 From: Arturo Greer MD PCP: Dr. Ken Contreras MD Status:R EG ER Location: ED [facility] <Dr. Arturo Greer MD - Last Filed: 01/09/23 22:07> History of Present Illness Chief Complaint: Constipation Informant: patient Narrative Narrative: Patient complains of constipation. Patient has a long history of constipation. She states that she takes MiraLAX probably about half of the days of the month to try to maintain bowel habits. But sometimes she gets behind. Her last good bowel movement was almost a week ago. She still eating and drinking. No nausea or vomiting. But she just feelsas though she needs to move her bowels. She is not having pain. She tried someMiraLAX this week. She also tried an enema today but does not really feel like she could get it to flow in. She is not sure if it really worked. She did not have success afterwards. She had tried a Dulcolax earlier in the week but ran out. No back pain. No history of AAA. Not lightheaded or dizzy. She states she has had this problem many times and this is the same as others. She does not feel sick or ill in any way. [facility] <Dr. Arturo Greer MD - Last Filed: 01/09/23 22:07> [facility] Medical History Acute respiratory failure with hypoxia Asthma exacerbation Asthmatic bronchitis , chronic Bilateral SubmassivePE Bronchiectasis Chest pain Chronotropic incompetence with sinus node dysfunction Cough Dizziness Dyspnea Essential hypertension GERD (gastroesophageal reflux disease) History of non-ST elevation myocardial infarction (NSTEMI) Hypothyroidism PND (post-nasal drip) Presence of cardiac pacemaker (~05/29/21) Pulmonary nodule Retinal detachment Sick sinus syndrome Sinus bradycardia Thrush, oral Home Medications acetaminophen 325 mg tablet 650 mg PO QHS pain 11/17/16 [History Last Taken 11/16/16] baclofen 10 mg tablet 5 mg PO BID muscle relaxer 11/17/16 [History Last Taken 11/16/16] cyanocobalamin (vitamin B-12) 1,000 mcg tablet 1,000 mcg PO DAILY vitamin 11/17/16 [History Last Taken 11/16/16] multivitamin 1 tab PO DAILY vitamin 11/17/16 [History Last Taken 11/16/16] paroxetine HCl 10 mg tablet 40 mg PO DAILY mental health 11/17/16 [History Last Taken 05/29/21] polyethylene glycol 3350 17 gram oral powder packet 17 gm PO DAILY constipation 05/27/17 [History Last Taken Unknown] aspirin 81 mg tablet,delayed release 81 mg PO DAILY@0800 heart health 11/27/17 [History Last Taken Unknown] lamotrigine 25 mg tablet,extended release 24 hr 25 mg PO DAILY 11/27/17 [History Last Taken Unknown] meloxicam 15 mg tablet 15 mg PO DAILY arthritis 11/27/17 [History Last Taken Unknown] loratadine 10 mg tablet (Claritin) 10 mg PO DAILY allergies 12/27/20 [History Last Taken Unknown] albuterol sulfate 2.5 mg/3 mL (0.083 %) solution for nebulization 2.5 mg inhalation Q4H PRN Sob &/Or Wheezing 01/10/21 [History Last Taken 05/29/21] amlodipine 5 mg tablet 5 mg PO DAILY blood pressure 01/10/21 [History Last Taken 05/29/21] bisacodyl 5 mg tablet,delayed release (Dulcolax (bisacodyl)) 5 mg PO ONCE PRN Constipation 01/10/21 [History Last Taken Unknown] brimonidine 0.2 %-timolol 0.5 % eye drops (Combigan) 1 drp ophthalmic (eye) BID eye health 01/10/21 [History Last Taken Unknown] ketotifen fumarate 0.025 % (0.035 %) eye drops 1 drp ophthalmic (eye) BID eye health 01/10/21 [History Last Taken Unknown] latanoprost 0.005 % eye drops, emulsion 1 drp ophthalmic (eye) QPM eye health 01/10/21 [History Last Taken Unknown] levothyroxine 88 mcg tablet 88 mcg PO .COMPLEX thyroid 01/10/21 [History Last Taken 05/29/21] lisinopril 40 mg tablet 40 mg PO DAILY blood pressure 01/10/21 [History Last Taken Unknown] lorazepam 1 mg tablet 2 mg PO QHS anxiety 01/10/21 [History Last Taken Unknown] pantoprazole 20 mg tablet,delayed release 40 mg PO DAILY reflux 01/10/21 [History Last Taken 05/29/21] vibegron 75 mg tablet (Gemtesa) 75 mg PO DAILY 08/07/21 [History Last Taken Unknown] albuterol sulfate 90 mcg/actuation aerosol inhaler 1 - 2 puff inhalation Q4H PRNPRN Shortness Of Breath #18 grams 02/11/22 [Rx Last Taken Unknown] ascorbic acid (vitamin C) 250 mg tablet 250 mg PO BID 08/19/22 [History Last Taken Unknown] d-mannose ea PO 08/19/22 [History Last Taken Unknown] lactobacillus combination no.9 4 billion cell capsule (Adult 50 Plus Probiotic) 4,000 mmu cells PO DAILY 08/19/22 [History Last Taken Unknown] conjugated estrogens 0.625 mg/gram vaginal cream 0.625 mg vaginal ONCE 09/10/22 [History Last Taken Unknown] ergocalciferol (vitamin D2) 1,250 mcg (50,000 unit) capsule 50,000 unit PO QMONTH vitamin 09/10/22 [History Last Taken Unknown] fluticasone furoate 100 mcg-vilanterol 25 mcg/dose inhalation powder (Breo Ellipta) 1 inh inhalation DAILY #60 ea 01/09/23 [Rx Last Taken Unknown] Allergy/AdvReac Type Severity Reaction Status Date / Time ciprofloxacin [From Cipro] Allergy Itching Verified 01/09/23 18:23 diphenhydramine Allergy Rash Verified 01/09/23 18:23 [From Benadryl] Penicillins Allergy Hives Verified 01/09/23 18:23 shellfish derived Allergy Anaphylaxis Verified 01/09/23 18:23 Sulfa (Sulfonamide Allergy Upset Verified 01/09/23 18:23 Antibiotics) Stomach tiotropium Allergy Other Verified 01/09/23 18:23 [From Spiriva with HandiHaler] ketamine AdvReac hallucinati Verified 01/09/23 18:23 ons Family History Mother Breast cancer Colon cancer Father Cancer Lung Grandmother Breast cancer CVA (cerebral vascular accident) Surgical History History of bladder suspension procedure History of bronchoscopy History of cataract extraction History of cholecystectomy History of hysterectomy History of tonsillectomy Social History Smoking Status: Former smoker Tobacco: How many years used: 10 second hand exposure: No alcohol intake: current details: occasional substance use type: does not use caffeine: Yes Type: coffee what type of physical activity do you participate in: other seatbelt use: always do you feel safe at home: Yes ROS <Dr. Arturo Greer MD - Last Filed: 01/09/23 22:07> ROS ED Constitutional Constitutional ED: Denies chills or fever(s) ENT ENT ED: Denies rhinorrhea Cardiovascular Cardiovascular: Denies chest pain or palpitations Respiratory/Chest Respiratory/Chest: Denies cough or dyspnea Gastrointestinal Gastrointestinal: Reports constipation; Denies abdominal pain, diarrhea, melena,nausea or vomiting Genitourinary Genitourinary ED: Denies dysuria or hematuria Musculoskeletal Musculoskeletal: Denies back pain Integumentary Denies rash Neurologic Neurologic: Denies paresthesias or weakness Endocrine Endocrinology: Denies polydipsia or polyuria Hematologic/Lymphatic Hematologic/Lymphatic: Denies easy bleeding or easy bruising Allergic/Immunologic Allergic/Immunologic ED: Denies urticaria EXAM <Dr. Arturo Greer MD - Last Filed: 01/09/23 22:07> Physical Exam Narrative Exam Narrative: CONSTITUTIONAL: Patient is nontoxic in appearance. The patient looks comfortable. HEENT: No notable trauma. Mucous membranes moist. EYES: No conjunctival injection. No proptosis. CARDIOVASCULAR: Regular rate. Regular rhythm. No notable murmur. No JVD. RESPIRATORY: No respiratory distress. Breathing is unlabored. No wheezes. No pain with a deep breath. GASTROINTESTINAL: Not distended. Bowel sounds are normal. No tenderness. No guarding. No rebound. No palpable mass. No bruit. Overall this is a very benignabdomen. GENITOURINARY: No tenderness over the bladder. No CVA tenderness. MUSCULOSKELETAL: Atraumatic. No peripheral edema. NEUROLOGICAL: Patient is alert and appropriate. No focal deficit noted. SKIN: No noted rashes. No diaphoresis. PSYCHIATRIC: Patient is calm. Mood is appropriate. Const Vital Signs: 01/09/23 18:23 Temperature 96.7 F L Temperature Source Temporal Pulse Rate 64 Respiratory Rate 18 Blood Pressure 141/69 H Blood Pressure Mean 93 Pulse Ox 97 Oxygen Delivery Method Room Air <Dr. Shad Hunter MD - Last Filed: 01/09/23 22:18> Physical Exam Const Vital Signs: 01/09/23 18:23 Temperature 96.7 F L Temperature Source Temporal Pulse Rate 64 Respiratory Rate 18 Blood Pressure 141/69 H Blood Pressure Mean 93 Pulse Ox 97 Oxygen Delivery Method Room Air [facility] <Dr. Arturo Greer MD - Last Filed: 01/09/23 22:07> [facility] Narrative Medical decision making narrative: My independent interpretation the patient's single view but to image x-ray of the abdomen shows no sign of obstruction but increased stool. Final reading is nonobstructive bowel gas pattern. With nurse Carmina, I did rectal exam. I can barely touch the tip of stool. I wasable to place a tube for a warm soapsuds enema up and over the stool. We infused about half the bag. We let her rest. We infused a little bit more. She has now had a very large bowel movement and feels markedly better. We will get her home at this time. I explained that the medicines that she has been taking may help now. If not she can use balanced electrolyte solution which we will send home with her. If she develops fevers, pain, lightheadedness, blood in the stool or any other issue she should return. Radiography Diagnostic Testing: Clinical Impression(s) from Imaging Studies KUB X-Ray 01/09/23 18:55 IMPRESSION: Non-obstructive bowel gas pattern. Electronically Signed: Marquise Matthew MD at 19:09 EDT Reading Location ID and State: [id number] / [place] Tel , Service support , <Dr. Shad Hunter MD - Last Filed: 01/09/23 22:18> [facility] Radiography Diagnostic Testing: Clinical Impression(s) from Imaging Studies KUB X-Ray 01/09/23 18:55 IMPRESSION: Non-obstructive bowel gas pattern. Electronically Signed: Marquise Matthew MD at 19:09 EDT , Treatment and Re-Evaluation Comments:: I accidentally clicked on this patient's chart and had no involvementin her care Discharge Plan Triage Chief Complaint: Constipation ED Provider: Arturo Greer Dx/Rx/DC Orders Clinical Impression: Constipation Instructions: ED Constipation (Adult) Prescriptions: No Action albuterol sulfate 2.5 mg /3 mL (0.083 %) solution for nebulization 2.5 mg INHALATION Q4H PRN (Reason: Sob &/Or Wheezing) amlodipine 5 mg tablet 5 mg PO DAILY Combigan 0.2-0.5 % drops 1 drp ophthalmic (eye) BID bisacodyl [Dulcolax (bisacodyl)] 5 mg tablet,delayed release (DR/EC) 5 mg PO ONCE PRN (Reason: Constipation) ketotifen fumarate 0.025 % (0.035 %) drops 1 drp ophthalmic (eye) BID Rx Instructions: administer at least 8 hours apart latanoprost 0.005 % drops, emulsion 1 drp ophthalmic (eye) QPM lisinopril 40 mg tablet 40 mg PO DAILY pantoprazole 20 mg tablet,delayed release (DR/EC) 40 mg PO DAILY loratadine [Claritin] 10 mg tablet 10 mg PO DAILY Gemtesa 75 mg tablet 75 mg PO DAILY albuterol sulfate 90 mcg/actuation HFA aerosol inhaler 1 - 2 puff INHALATION Q4H PRN PRN (Reason: Shortness Of Breath) Qty: 18 6RF ascorbic acid (vitamin C) 250 mg tablet 250 mg PO BID d-mannose Powder PO Adult 50 Plus Probiotic 4 billion cell capsule 4,000 mmu cells PO DAILY Rx Instructions: administer with a meal conjugated estrogens 0.625 mg/gram cream 0.625 mg vaginal ONCE Rx Instructions: Three times a week multivitamin 1 EACH tablet 1 tab PO DAILY Label Comments: supplement acetaminophen 325 MG tablet 650 mg PO QHS Label Comments: pain paroxetine HCl 10 MG tablet 40 mg PO DAILY Label Comments: anxiety/depression cyanocobalamin (vitamin B-12) 1,000 MCG tablet 1,000 mcg PO DAILY Label Comments: supplement baclofen 10 MG tablet 5 mg PO BID Label Comments: muscle spasms levothyroxine 88 mcg tablet 88 mcg PO .COMPLEX Label Comments: hypothyroidism Rx Instructions: 88 mcg PO MOTUWETHFRSA; lorazepam 1 mg tablet 2 mg PO QHS Label Comments: anxiety/sleep ergocalciferol (vitamin D2) 1,250 mcg (50,000 unit) capsule 50,000 unit PO QMONTH Label Comments: polyethylene glycol 3350 17 GM packet 17 gm PO DAILY meloxicam 15 MG tablet 15 mg PO DAILY aspirin 81 MG tablet 81 mg PO DAILY@0800 lamotrigine 25 MG tablet extended release 24hr 25 mg PO DAILY fluticasone furoate-vilanterol [Breo Ellipta] 100-25 mcg/dose blister with device 1 inh inhalation DAILY Qty: 60 6RF Primary Care Provider: Ken Contreras Referrals: Ken Contreras MD [Primary Care Provider] - 3-5 Days if not improving Disposition Disposition: Home, Self Care What to do if you have Problems For any increased pain, shortness of breath, bleeding, nausea or vomiting, chestpain, or any unexpected problems, contact your Primary Care Provider. Call [facility] ([phone]) or report to the closest Emergency Room. Call 911 if necessary. 01/09/232207 <Electronically signed by Arturo Greer MD> Cosigner Signature (if applicable): 01/09/232217 <Electronically signed by Shad Hunter MD> CC: Dr. Ken Contreras MD ~ Signed [facility] Work Phone: [phone] History of Present illness Narrative* Daniella Banegas APRN.MICROBIOLOGICAL LABORATORY TECHNICIAN - 01/09/2023 5:59 PM EDT Patient came in with complaints of constipation. Not sure when the last time she had a bowel movement was but says it was definitely longer than 4 days. Patient says she tried to manually disimpact the stool several times. Patient tried 2 enemas. Patient has tried Dulcolax. Patient's had no success. Patient says she feels a little uncomfortable but nothing severe. At this time patient is being sent to the emergency room for evaluation. [facility]23 Miscellaneous Notes* Telephone Encounter - Pushpa Murphy RN - 12/30/2022 3:08 PM EDT Pt is using [facility]. Phone number is . Patient has been identified by name and date of : Yes, Provider Contreras Date 12/30/22 Time 4847 Patient phones for refill(s): Requested Prescriptions Pending Prescriptions Disp Refills baclofen (LIORESAL) 5 mg tablet 180 tablet 3 Sig: Take 1 tablet by mouth twice daily. levothyroxine (SYNTHROID) 88 mcg tablet 78 tablet 3 Sig: TAKE 1 TABLET DAILY EXCEPT DO NOT TAKE ON SUNDAYS. TAKE ON AN EMPTY STOMACH meloxicam (MOBIC) 15 mg tablet 90 tablet 3 Sig: Take 1 tablet by mouth once daily. pantoprazole DR (PROTONIX) 20 mg tablet 180 tablet 3 Sig: Take 2 tablets by mouth once daily. PARoxetine (PAXIL) 40 mg tablet 90 tablet 3 Sig: Take 1 tablet by mouth once daily. amLODIPine (NORVASC) 5 mg tablet 90 tablet 3 Sig: Take 1 tablet by mouth once daily. lisinopril (ZESTRIL) 40 mg tablet 90 tablet 3 Sig: Take 1 tablet by mouth once daily. lamoTRIgine (LAMICTAL) 25 mg tablet 90 tablet 3 Sig: Take 1 tablet by mouth once daily. Date of last office visit in primary care: 08/01/22 Future visit: 01/30/23 Last 2 Encounter Wt Readings: Date: Wt: 08/01/2022 80.3 kg (177 lb) 07/05/2022 78.9 kg (174 lb) Previous labs/tests for medication: Thyroid: TSH Date Value 01/16/2022 1.570 mIU/L 07/18/2021 1.150 uU/mL Cholesterol: HDL Cholesterol (mg/dL) Date Value 07/25/2022 48 06/22/2020 46 LDL Cholesterol (mg/dL) Date Value 07/25/2022 103 06/22/2020 80 ALT (U/L) Date Value 01/16/2022 9 07/18/2021 10 Non HDL Cholesterol (mg/dL) Date Value 07/25/2022 127 06/22/2020 103 Blood Pressure: BUN (mg/dL) Date Value 07/25/2022 20 07/18/2021 21 Sodium (mmol/L) Date Value 07/25/2022 141 07/18/2021 140 Last 1 Encounter BP Readings: Date: BP: 08/01/2022 115/75 Liver Function: ALT (U/L) Date Value 01/16/2022 9 07/18/2021 10 AST (U/L) Date Value 01/16/2022 16 07/18/2021 19 Please advise. Thank you. Pushpa Murphy RN * Telephone Encounter - Laurence Torres LPN - 12/30/2022 2:18 PM EDT Spoke with pt and her prescriptions were sent to the mail service pharmacy [facility] which was the wrong pharmacy. This is an independent pharmacy [phone]. When I called they they told me her prescriptions were cancelled thru them. I called pt back and she is going to call her insurance and find out who her Mail Order Pharmacy is and get a phone number. I will be calling pt back tomorrow AM and she who they told her and get the prescriptions below sent to the proper pharmacy FYI: pt had a phone number for [facility] pharmacy which is [employer] and she no longer has [employer]. Laurence Torres LPN : documented in this encounterK[facility]04-25-2023 Miscellaneous Notes* Telephone Encounter - Laurence Torres LPN - 12/30/2022 2:52 PM EDT This message has been closed and there is a phone encounter dated 12-30-22 started. Laurence Torres LPN documented in this encounterK[facility]04-05-2023 Miscellaneous Notes* Telephone Encounter - Anny Frye LPN - 12/10/2022 11:15 AM EDT Patient states that the medication was sent to the wrong pharmacy. Asking that the amlodipine and lisinopril be sent to [facility] in [place]. Orders pended. documented in this encounterK[facility]04-03-2023 Miscellaneous Notes* Telephone Encounter - Dia Thayer APRN.CNP - 12/08/2022 12:56 PM EDT PDMP website checked and validated. All prescriptions have been APPROPRIATELY filled. No suspiciousactivity was identified. 12/08/2022 by Dia Thayer APRN.CNP * Telephone Encounter - Saida Flores Ma - 12/08/2022 12:24 PM EDT [place]: 08/01/2022 Last refill: 09/12/2022 QTY: 30 Refills: 2 Patient's request for medication is as follows: Requested Prescriptions Pending Prescriptions Disp Refills LORazepam (ATIVAN) 2 mg tab 30 tablet 2 Sig: Take 1 tablet by mouth daily at bedtime for 90 days. Please approve the above prescription(s) to electronically send to pharmacy. Saida Flores Ma documented in this [facility]04-03-2023 Miscellaneous Notes* Telephone Encounter - Adelaida Almendarez LPN - 12/08/2022 11:26 AM EDT Patient calling asking about Lisinopril and Amlodipine rx. computer shows rx was sent on 11/17/2022 so she should not need new rx.Patient is calling [facility] pharmacy to find out what is going on, shehad never gotten the rx yet. documented in this encounterK[facility]03-13-2023 Miscellaneous Notes* Telephone Encounter - Cindy Pathak LPN - 11/17/2022 1:49 PM EDT Last office visit: 08/01/22 Next appointment scheduled: 01/30/23 Last labs: 07/25/22 Patient phones requesting refills as follows: Requested Prescriptions Pending Prescriptions Disp Refills amLODIPine (NORVASC) 5 mg tablet 90 tablet 3 Sig: Take 1 tablet by mouth once daily. lisinopril (ZESTRIL) 40 mg tablet 90 tablet 3 Sig: Take 1 tablet by mouth once daily. Please review and advise. Cindy Pathak LPN documented in this encounterK[facility]02-25-2023 Miscellaneous Notes* Telephone Encounter - Seema Florence LPN - 11/01/2022 9:50 AM EST Patient aware letter ready and requesting be sent to her in the mail. Letter ready to be mailed on Thursday11/03/2022. Seema Florence LPN * Telephone Encounter - Ken Contreras MD - 10/31/2022 5:26 PM EST Letter printed. * Telephone Encounter - Norma Wong RN - 10/30/2022 4:09 PM EST Pt calling and asking if PCP will complete a renewal for handicap placard for her. Please call pt once ready for waste picker. Thank you. documented in this encounterK[facility]01-11-2023 Miscellaneous Notes* Addendum Note - Dia Thayer APRN.CNP - 09/17/2022 5:28 PM ESTAddended by: DIA THAYER on: 09/17/2022 05:28 PM Modules accepted: Orders * Addendum Note - Saida Flores Ma - 09/17/2022 5:22 PM ESTAddended by: SAIDA FLORES MA on: 09/17/2022 05:22 PM Modules accepted: Orders * Telephone Encounter - Saida Flores Ma - 09/17/2022 3:11 PM EST Please send to pended pharmacy. * Telephone Encounter - Yvonne Carroll - 09/17/2022 2:55 PM EST [facility] phone # [phone] * Telephone Encounter - Kailey Caraballo LPN - 09/16/2022 2:11 PM EST Spoke to Geoffrey, she is going to call [facility] [employer] [facility] to verify. Will call back & ask to speak to a nurse. Kailey Caraballo LPN * Telephone Encounter - Dia Thayer APRN.CNP - 09/16/2022 9:37 AM EST There is a [facility] pharmacy in [place], [place], is this the one she is referring to? Dia Thayer APRN.BERTHA * Telephone Encounter - Deidre West LPN - 09/15/2022 4:03 PM EST Pt calls to report she has a new mail-in pharmacy: [facility]. Pt reports she needs new rx faxed to: [phone]. Could not find [facility] in [place]. Pt reports phone # [phone]. Rx set to print. Patient has been identified by name and date of : Yes Requested Prescriptions Pending Prescriptions Disp Refills amLODIPine (NORVASC) 5 mg tablet 90 tablet 3 Sig: Take 1 tablet by mouth once daily. baclofen (LIORESAL) 5 mg tablet 180 tablet 3 Sig: Take 1 tablet by mouth twice daily. lamoTRIgine (LAMICTAL) 25 mg tablet 90 tablet 3 Sig: Take 1 tablet by mouth once daily. levothyroxine (SYNTHROID) 88 mcg tablet 78 tablet 3 Sig: TAKE 1 TABLET DAILY EXCEPT DO NOT TAKE ON SUNDAYS. TAKE ON AN EMPTY STOMACH lisinopril (ZESTRIL, PRINIVIL) 40 mg tablet 90 tablet 3 Sig: Take 1 tablet by mouth once daily. meloxicam (MOBIC) 15 mg tablet 90 tablet 3 Sig: Take 1 tablet by mouth once daily. pantoprazole DR (PROTONIX) 20 mg tablet 180 tablet 3 Sig: Take 2 tablets by mouth once daily. PARoxetine (PAXIL) 40 mg tablet 90 tablet 3 Sig: Take 1 tablet by mouth once daily. RX INSTRUCTIONS: Patient aware RX will be sent to pharmacy. No need to notify patient. Deidre West LPN documented in this encounterK[facility]11-25-2022 History of Present illness Narrative* Ken Contreras MD - 08/01/2022 3:01 PM EST This note was created using [employer]. Subjective Geoffrey Nassar is a 87 year old female. She was doing well in general, and chronic conditions were stable. She was being monitored by her urologist for recurrent urinary tract infection. I saw her for acute otitis media 3.5 months ago, and she still had recurrent loss of hearing on the left. Review of Systems Constitutional: Negative. HENT: Positive for hearing loss. Negative for congestion, ear discharge, ear pain, rhinorrhea and sinus pressure. Respiratory: Negative. Cardiovascular: Negative. Genitourinary: Negative. Musculoskeletal: Positive for back pain. Neurological: Negative. 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 brimonidine-timolol (COMBIGAN) 0.2-0.5 % ophthalmic solution Use 1 Drop in the left eye twice daily. latanoprost (XALATAN) 0.005 % ophthalmic solution Use 1 Drop in both eyes daily at bedtime. meloxicam (MOBIC) 15 mg tablet Take 1 tablet by mouth once daily. LORazepam (ATIVAN) 2 mg tab Take 1 tablet by mouth daily at bedtime for 120 days. ergocalciferol 50,000 unit capsule (VITAMIN D2, DRISDOL) Take 1 capsule by mouth every 4 weeks. PARoxetine (PAXIL) 40 mg tablet Take 1 tablet by mouth once daily. lisinopril (ZESTRIL, PRINIVIL) 40 mg tablet Take 1 tablet by mouth once daily. BREO ELLIPTA 100-25 mcg/dose inhaler amLODIPine (NORVASC) 5 mg tablet Take 1 tablet by mouth once daily. levothyroxine (SYNTHROID) 88 mcg tablet TAKE 1 TABLET DAILY EXCEPT DO NOT TAKE ON SUNDAYS. TAKE ON AN EMPTY STOMACH lamoTRIgine (LAMICTAL) 25 mg tablet Take 1 tablet by mouth once daily. GEMTESA 75 mg tablet baclofen (LIORESAL) 10 mg tablet Take 0.5 tablets by mouth twice daily. triamcinolone (KENALOG) 0.025 % cream Apply to affected area once daily. vit C/E/zinc ox/trevor/lut/zeax (ICAPS AREDS2 ORAL) loratadine (CLARITIN REDITABS) 10 mg dissolvable tablet Take 1 tablet by mouth once daily as needed(allergies). DULCOLAX, BISACODYL, ORAL Take 1 tablet by mouth as needed. aspirin, enteric coated (ASPIRIN, ENTERIC COATED) 81 mg EC tablet Take 81 mg by mouth once daily. acetaminophen (TYLENOL ARTHRITIS PAIN) 650 mg CR tablet Take 1 tablet by mouth daily at bedtime. polyethylene glycol 3350 (MIRALAX, GLYCOLAX) 17 gram/dose powder Drink a mix of 1 scoop in 8oz of water/beverage once daily as needed for constipation. cyanocobalamin (VITAMIN B-12) 1,000 mcg tab Take 1,000 mcg by mouth once daily. albuterol HFA (VENTOLIN HFA) 90 mcg/actuation inhaler Inhale 2 Puffs as instructed every 4 hours asneeded for Wheezing/Shortness of Breath. MULTIVITAMIN TAB Take one(1) tablet daily. No current facility-administered medications for this visit. Objective BP 115/75 Pulse 66 Resp 12 Ht 158.8 cm (5' 2.5) Wt 80.3 kg (177 lb) BMI 31.86 kg/m Physical Exam Constitutional: Appearance: Normal appearance. HENT: Right Ear: Tympanic membrane normal. There is no impacted cerumen. Left Ear: Tympanic membrane normal. There is no impacted cerumen. Nose: Right Turbinates: Swollen and pale. Left Turbinates: Swollen and pale. Mouth/Throat: Mouth: Mucous membranes are moist. Pharynx: Oropharynx is clear. Cardiovascular: Rate and Rhythm: Normal rate and regular rhythm. Heart sounds: No murmur heard. No gallop. Pulmonary: Effort: Pulmonary effort is normal. Breath sounds: Normal breath sounds. Musculoskeletal: Cervical back: No tenderness. Right lower leg: No edema. Left lower leg: No edema. Lymphadenopathy: Cervical: No cervical adenopathy. Neurological: Mental Status: She is alert. Component Latest Ref Rng & Units 07/25/2022 Glucose 74 - 99 mg/dL 100 (H) BUN 7 - 21 mg/dL 20 Creatinine 0.58 - 0.96 mg/dL 0.88 Sodium 136 - 144 mmol/L 141 Potassium 3.7 - 5.1 mmol/L 4.4 Chloride 97 - 105 mmol/L 105 CO2 22 - 30 mmol/L 30 Anion Gap 9 - 18 mmol/L 6 (L) Calcium 8.5 - 10.2 mg/dL 9.5 eGFR >=60 mL/min/1.73m 64 Cholesterol, Total <200 mg/dL 175 Triglyceride <150 mg/dL 120 HDL Cholesterol >39 mg/dL 48 Non HDL Cholesterol <130 mg/dL 127 Fasting Time hrs 12 VLDL Cholesterol <30 mg/dL 24 TC:HDL Ratio <5.10 3.65 LDL Cholesterol <100 mg/dL 103 (H) LDL:HDL Ratio <2.54 2.15 Vitamin D 25 Hydroxy 31.0 - 80.0 ng/mL 64.8 Alkaline Phosphatase 34 - 123 U/L 116 Assessment and Plan 1. Medicare annual wellness visit, subsequent - ICD9: V70.0, ICD10: Z00.00 (primary diagnosis) See wellness note. - ADVANCE CARE PLAN DISCUSSION 2. Dysfunction of left eustachian tube - ICD9: 381.81, ICD10: H69.82 Try FLONASE or NASACORT nasal spray over the counter. 3. Depressive disorder w/ seasonal affective disorder - ICD9: 311, ICD10: F32.A Controlled. - LAMOTRIGINE 25 MG TABLET 4. Acquired hypothyroidism - ICD9: 244.9, ICD10: E03.9 - continue current dose of Synthroid - LEVOTHYROXINE 88 MCG TABLET - TSH BLD 5. Anxiety - ICD9: 300.00, ICD10: F41.9 Stable. 6. DDD (degenerative disc disease), lumbar - ICD9: 722.52, ICD10: M51.36 Chronic low back pain - BACLOFEN 5 MG TABLET. We agreed to change tablet to eliminate need of splitting the tablet. 7. Mixed stress and urge urinary incontinence - ICD9: 788.33, ICD10: N39.[address] Hansen. - GEMTESA 75 MG TABLET 8. Essential hypertension - ICD9: 401.9, ICD10: I10 - good control - BASIC METABOLIC PNL 9. Recurrent UTI - ICD9: 599.0, ICD10: N39.[address] Hansen. Ken Contreras MD * Ken Contreras MD - 08/01/2022 2:51 PM EST Geoffrey Nassar is a 87 year old female here for a Medicare Subsequent Annual Wellness Visit Health Risk Assessment In general, health is: Good Concerns with tiredness, difficulties with sexual function, balance, teeth/dentures: Not at all [place] anxious, stressed, angry, irritable, lonely, isolated, or had thoughts of hurting themself: Not at all Has little interest or pleasure in doing things: Several days Bothered by feeling down, depressed, or hopeless: Several days Needs help with grocery shopping, cooking, housework, bathing, grooming, dressing, eating, sitting or standing, walking, using the toilet, handling finances, taking medications, using the telephone, or driving: No Following safety precautions in the home environment and vehicle: removed throw rugs from floors, installed grab bars in the bathroom, handrails in stairwells, having adequate lighting, wearing seatbelt at all times?: Yes Smokes cigarettes, vapes, or chew tobacco: No Eats healthy foods including fruits, vegetables, whole grains, and fiber-rich foods: Nearly every day Number of days per week engages in exercise: Patient refused Average alcohol consumption: 2-4 times a month Current Providers Specialists: I have reviewed specialist-related care of the patient in the medical record. Current care team: Patient Care Team: Ken Contreras MD as PCP - General (Internal Medicine) Outside specialists seen: Dr. Christi Hansen, gyne urologist. Dr. Aron Javed, cardiology. Dr. Jaswant Miller, pulmonary. Dr. Gee Hawthorne, dermatology. Dr. Izabel Carlos, ophthalmology. Dr. Jolly, podiatry. Medical/Family history review Reviewed and updated problem list, medical/surgical/family/social history, medications, and allergies. Opioid use review Patient is not currently using opioids. Depression screening Depression Screening PHQ-2 Score PHQ-9 Score JESSENIA-2 Total Score 01/22/2022 2 3 - Depression screening tool completed and reviewed. Based on score and interview, patient is already diagnosed with depression. Screening tool discussed with patient, and I recommended continuing current plan of care. Cognitive screening Mini Cog Score: 4 Cognitive screening reviewed and no further action needed (score 3-5) Functional Observation Was the patient's timed Up & Go test unsteady or ? 12 seconds? No Advance Care Planning End of Life planning discussed, including patient's advanced directive wishes: Yes Measurements BP 115/75 Pulse 66 Resp 12 Ht 5' 2.5 (1.59m) Wt 177 lb (80.3kg) BMI 31.84 kg/(m^2). Visual acuity: follows with optometry/ophthalmology Hearing Evaluation: within normal limits Assessment/Plan - Counseled on healthy diet and regular exercise - Discussed need for and benefit of weight loss. BMI 31.86 kg/(m^2) - Fall avoidance [facility]11-11-[facility] Miscellaneous Notes* Telephone Encounter - Christin Moreland Ma - 07/18/2022 3:38 PM EST Last OV: 06/19/22 Next OV:08/01/22 documented in this [facility]11-08-2022 Instructions* Patient Instructions* Geoff Carlos MD - 07/15/2022 2:30 PM EST Current Ophthalmic Meds brimonidine-timolol (COMBIGAN) 0.2-0.5 % ophthalmic solution Use 1 Drop in the left eye twice daily. latanoprost (XALATAN) 0.005 % ophthalmic solution Use 1 Drop in both eyes daily at bedtime. Plan Canaloplasty/Trabeculotomy with the Omni surgical system Left Eye on 08/18/2022 at [facility]. If you have any questions please contact our office at [phone]. After office hours or on the weekend, please call Dr. Carlos on his cell phone at [phone]. documented in this [facility]11-08-2022 History of Present illness Narrative* Geoff Carlos MD - 07/15/2022 2:28 PM EST ASSESSMENT/PLAN: 1. Primary open angle glaucoma (POAG) of both eyes, mild stage - ICD9: 365.11, 365.71, ICD10: H40.1131 (primary diagnosis) - FUNDUS PHOTOS OU (BOTH EYES) Current Ophthalmic Meds brimonidine-timolol (COMBIGAN) 0.2-0.5 % ophthalmic solution Use 1 Drop in the left eye twice daily. latanoprost (XALATAN) 0.005 % ophthalmic solution Use 1 Drop in both eyes daily at bedtime. The nature of glaucoma was discussed, with emphasis on the non-reversible damage to the optic nerve. Treatment options and the importance of regular examinations and testing were covered in detail, as well as the consequences of non- compliance. The patient was given the opportunity to ask questions. Target Intraocular pressure: 12 mmHg Due to the following reason/s: Intraocular pressure not at desired target pressure An inability to comply with medication requirements due to physical or cognitive function Patient reported that the side effects of the medication/s are negatively impacting the patient's quality of life Patient does not desire an additional medication to be added to their existing regimen Patient is having difficulty with their co-payment obligations Patient is on maximum tolerated therapy. Patient has ocular surface issue secondary to Glaucoma eyedrops. Plan Canaloplasty/Trabeculotomy with the Omni surgical system Left Eye on 08/18/2022 at [facility]. PHYSICAL EXAM: Vital Signs: Blood pressure 166/97, pulse 62. Respiratory: Normal breath sounds, no wheezing. CARD: Normal heart sounds 1 & 2, normal sinus rhythm. 2. Optic cupping of both eyes - ICD9: 377.14, ICD10: H47.233 Monitor 3. Nonexudative age-related macular degeneration, bilateral, intermediate dry stage - ICD9: 362.51,ICD10: H35.3132 Please monitor each eye daily with Amsler Grid. AREDS 2 Vitamins are available over the counter at any drug store. 4. Essential hypertension - ICD9: 401.9, ICD10: I10 Continue to monitor with primary care physician. Geoff Carlos MD I have confirmed and edited as necessary the relevant ophthalmic history, review of systems, surgical history, and ophthalmological examination findings as obtained by the ophthalmic technical staff.I have seen and examined Geoffrey Nassar. I have discussed the examination findings, diagnosis, and treatment options with Geoffrey Nassar and/or her family. I have also reviewed and agree with the assessment and plan as stated above and agree with all its relevant components. I gave the patient the opportunity to ask questions about the findings, diagnosis, and treatment options. documented in this encounterKet[facility]10-29-2022 History of Present illness Narrative* Misael Coolye MD - 07/05/2022 11:12 AM EDT Chief Complaint Patient presents with: Acute Visit: recurring UTI HPI Geoffrey Nassar is a 87 year old female who presents here today for Above Complaints.. Has been dealing with recurrent UTI for the last several weeks. Has been on macrobid once, keflex twice. Had one dose of fosfomycin last week, but symptoms returned after 2 days. Cloudy urine, dysuria, frequency, low back pain. She follows with Dr Hansen, but has not been able to get in to see her. Past medical history, appointments, medications, allergies reviewed. Previous Medical History PAST MEDICAL HISTORY Diagnosis Date Bronchiectasis without complication (HCC) 11/27/2009 Dr. Jaswant Miller, pulmonary. 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 Diverticulosis of small intestine (without mention of hemorrhage) Enthesopathy of hip region 07/08/2011 Essential hypertension 05/25/2008 Extrinsic asthma 01/29/2006 Family history of malignant neoplasm of gastrointestinal tract liver cancer Foraminal stenosis of cervical region 01/30/2012 Gait disturbance 01/29/2017 Gastroesophageal reflux disease with esophagitis 05/13/2013 HERNIA UMBILICAL 12/19/2005 Hypothyroidism 03/17/2005 Irritable bowel syndrome with both constipation and diarrhea 09/23/2016 Oral murray 10/29/2020 Pulmonary embolism with acute cor pulmonale (HCC) 11/24/2016 She was initially thought to have a NSTEMI, but was found to be a PE with Right Strain and NOT a NSTEMI. Pulmonary nodule 01/08/2017 Tubular adenoma of colon 12/29/2017 Previous Surgical History PAST SURGICAL HISTORY Procedure Laterality Date CHOLECYSTECTOMY 1998 COLONOSCOPY FLX DX W/COLLJ SPEC WHEN PFRMD 12/18/2005 COLONOSCOPY FLX DX W/COLLJ SPEC WHEN PFRMD 09/17/2011 COLONOSCOPY FLX DX W/COLLJ SPEC WHEN PFRMD 11/30/2017 Colonoscopy - adenomatous polyp-5 year follow-up EGD 05/29/2017 LASER IRIDOPLASTY OS (LEFT EYE) Left LASER IRIDOTOMY OD (RIGHT EYE) Right PACEMAKER INSERTSION 05/29/2021 dual lead PAST SURGICAL HISTORY OF 09/2007 jacinto eyelid removal dropping skin PAST SURGICAL HISTORY OF Bilateral 11/24/2011 cataract removal 11/19/11, 11/24/11 SLING OPER STRES INCONTINENCE 2004 TONSILLECTOMY HX 1957 VAG HYST 250 GM/< W/RMVL TUBE&/OVARY 1996 uterine prolapse, hyst. bilateral oophorectomy VITRECTOMY MECHANICAL PARS PLANA Left Family History FAMILY HISTORY Problem Relation Age of Onset Cancer Mother Arthritis Mother Kidney Disease Mother Cancer Father lung Patient Allergies ALLERGIES Allergen Reactions Shellfish Containin* Unknown Penicillamine Unknown Benadryl [Diphenhyd* Rash Cats Cipro [Ciprofloxaci* Itching Dust Ketamine Unknown Mold Penicillins Rash Shellfish Shortness of Breath Spiriva With Handih* Intolerance not help Sulfa (Sulfonamide * GI Upset Symbicort [Budesoni* Intolerance tremor,shaky Tetanus Toxoid Adso* Intolerance arm swell Tree's [Other] Current Medications Current Outpatient Medications on File Prior to Visit Medication Sig latanoprost (XALATAN) 0.005 % ophthalmic solution Use 1 Drop in both eyes daily at bedtime. meloxicam (MOBIC) 15 mg tablet Take 1 tablet by mouth once daily. LORazepam (ATIVAN) 2 mg tab Take 1 tablet by mouth daily at bedtime for 120 days. brimonidine-timolol (COMBIGAN) 0.2-0.5 % ophthalmic solution Use 1 Drop in the left eye twice daily. ergocalciferol 50,000 unit capsule (VITAMIN D2, DRISDOL) Take 1 capsule by mouth every 4 weeks. PARoxetine (PAXIL) 40 mg tablet Take 1 tablet by mouth once daily. lisinopril (ZESTRIL, PRINIVIL) 40 mg tablet Take 1 tablet by mouth once daily. BREO ELLIPTA 100-25 mcg/dose inhaler amLODIPine (NORVASC) 5 mg tablet Take 1 tablet by mouth once daily. levothyroxine (SYNTHROID) 88 mcg tablet TAKE 1 TABLET DAILY EXCEPT DO NOT TAKE ON SUNDAYS. TAKE ON AN EMPTY STOMACH lamoTRIgine (LAMICTAL) 25 mg tablet Take 1 tablet by mouth once daily. pantoprazole DR (PROTONIX) 20 mg tablet Take 2 tablets by mouth once daily. GEMTESA 75 mg tablet baclofen (LIORESAL) 10 mg tablet Take 0.5 tablets by mouth twice daily. triamcinolone (KENALOG) 0.025 % cream Apply to affected area once daily. vit C/E/zinc ox/trevor/lut/zeax (ICAPS AREDS2 ORAL) loratadine (CLARITIN REDITABS) 10 mg dissolvable tablet Take 1 tablet by mouth once daily as needed(allergies). DULCOLAX, BISACODYL, ORAL Take 1 tablet by mouth as needed. aspirin, enteric coated (ASPIRIN, ENTERIC COATED) 81 mg EC tablet Take 81 mg by mouth once daily. acetaminophen (TYLENOL ARTHRITIS PAIN) 650 mg CR tablet Take 1 tablet by mouth daily at bedtime. polyethylene glycol 3350 (MIRALAX, GLYCOLAX) 17 gram/dose powder Drink a mix of 1 scoop in 8oz of water/beverage once daily as needed for constipation. cyanocobalamin (VITAMIN B-12) 1,000 mcg tab Take 1,000 mcg by mouth once daily. albuterol HFA (VENTOLIN HFA) 90 mcg/actuation inhaler Inhale 2 Puffs as instructed every 4 hours asneeded for Wheezing/Shortness of Breath. MULTIVITAMIN TAB Take one(1) tablet daily. No current facility-administered medications on file prior to visit. Social History Social History Tobacco Use Smoking status: Former Packs/day: 0.50 Years: 10.00 Pack years: 5.00 Types: Cigarettes Quit date: 05/14/1965 Years since quittin.1 Smokeless tobacco: Never Vaping Use Vaping Use: Never used Substance Use Topics Alcohol use: Yes Comment: 1/2 glass of wine twice per month Drug use: No EXAM: BP 130/82 Pulse 67 Resp 16 Wt 78.9 kg (174 lb) SpO2 96% BMI 31.22 kg/m General Appearance: Well appearing, alert, in no acute distress, well-hydrated, well nourished.. Lungs: Lungs clear to auscultation. No wheezing, rhonchi, rales.. Heart: RRR without murmur, gallop, or rubs. No ectopy. Health Maintenance List ADVANCE DIRECTIVE DISCUSSION Never done SHINGRIX VACCINE(3 of 3) due on 12/31/2021 COVID-19 VACCINE(4 - Booster for Leon series) due on 03/20/2022 INFLUENZA(1) due on 03/06/2023 DTAP,TDAP,TD(2 - Td or Tdap) due on 06/19/2023 DIABETES SCREEN due on 01/16/2025 BONE DENSITY Completed SPIROMETRY Completed PNEUMOCOCCAL: 65+ Completed Data reviewed Appointment on 06/30/2022 Component Date Value Color 06/30/2022 Light Yellow Clarity 06/30/2022 Cloudy (A) Glucose, Urine 06/30/2022 Negative Bilirubin, Urine 06/30/2022 Negative Ketones, Urine 06/30/2022 Negative Specific [place], Ur 06/30/2022 1.010 Hemoglobin/Blood,Ur 06/30/2022 Negative pH, Urine 06/30/2022 6.5 Protein, Urine 06/30/2022 Trace (A) Urobilinogen 06/30/2022 Negative Nitrites 06/30/2022 2+ (A) Leuk Esterase 06/30/2022 500 Piter/mL (A) WBC, Urine 06/30/2022 >25 /HPF (A) RBC, Urine 06/30/2022 0-3 /HPF Bacteria 06/30/2022 Few (A) Culture, Urine 06/30/2022 >=100,000 CFU/ml Klebsiella pneumoniae (A) ASSESSMENT/PLAN: 1. Recurrent UTI - ICD9: 599.0, ICD10: N39.0 recurrent Will give another dose of fosfomycin; call if not improving after this - FOSFOMYCIN 3 G ORAL PACK Medical Decision Making: Problems: Low: Acute, uncomplicated illness or injury Data: Unique test result(s) reviewed: 1 Risk: Moderate: Drug management Medical Decision Making Level: 3 - Low Pt requests office note be sent to Dr Tyrone Cooley MD documented in this encounterK[facility]10-27-2022 Miscellaneous Notes* Telephone Encounter - Yessenia Perez LPN - 07/03/2022 9:06 AM EDT Electronic PA completed for Sig: Take 1 Packet by mouth one time only for 1 dose. Sent to pharmacy as: fosfomycin (MONUROL) 3 g pack This was approved Authorized from September 07, 2021 to September 06, 2023 Information received electronically from payer Pharmacy notified. documented in this encounterKettering [facility]10-26-2022 Miscellaneous Notes* Telephone Encounter - Shayla Nguyen Ma - 07/02/2022 7:10 PM EDT Patient notified. * Telephone Encounter - Jennifer Thayer APRN.CNP - 07/02/2022 7:06 PM EDT I have reviewed these and with her allergies, the best option would be fosfomycin. It is a one timedose and very effective. She should continue to follow up with urology and have her urine recheckedin 10-14 days after treatment. Thank you Jennifer Thayer APRN.MICROBIOLOGICAL LABORATORY TECHNICIAN * Telephone Encounter - Norma Wong RN - 07/02/2022 1:33 PM EDT Patient calling and states she has noted her urinalysis and culture results have returned. She is asking if Jennifer Thayer would advise? She continues with UTI symptoms documented below. She also states she has been on two antibiotics for treatment of UTI recently: macrobid and keflex.She reports she had an allergic reaction to penicillin about 45 years ago (small rash) and hasn't taken it since. Requesting [facility] in [place]. Please call patient with update. Thank you. * Telephone Encounter - Adelaida Almendarez LPN - 06/30/2022 10:16 AM EDT Patient calling having UTI symptoms again, pain with urination, cloudy, odor and itching urethra area, no vaginal drainage, constant back pain. Patient called her Urologist Dr Hansen office and she is on vacation, was told to do urine test and culture. Patient is planning to come in and do urine and culture today, orders in computer already. Please advise documented in this encounterKettering Health [facility]10-17-2022 Miscellaneous Notes* Telephone Encounter - Sylvie Robertson LPN - 06/23/2022 3:53 PM EDT Patient notified and is feeling better. Will complete as ordered. Results were faxed as requested. * Telephone Encounter - Jennifer Thayer APRN.CNP - 06/23/2022 9:54 AM EDT Please let patient know that her urine culture indicates the cephalexin should be effective againsther urinary tract infection. Finish antibiotic as ordered and repeat urine 10-14 days after completion of antibiotic to make sure infection is resolved. Also please send results to Dr. Hansen with [facility] as patient had requested this during her visit. Thank you Jennifer Thayer APRN.CNP documented in this encounterKettering [facility]10-13-2022 History of Present illness Narrative* Jennifer Thayer APRN.CNP - 06/19/2022 1:00 PM EDT CC: Patient presents with: uti symptoms HPI Geoffrey Nassar is a 87 year old female who presents with complaint of possible UTI. These symptoms have been present for 1 day. Associated symptoms: burning, urgency, frequency, foul smelling urine, chills, abdominal pain, low back pain and urine cloudy in color Denies: hematuria, fever, sweats, and flank pain, Has be on a vaginal suppository for abnormal smell for the past 3 months prescribed by urology. Treatments: nothing Has chronic UTIs and sees Dr. Hansen at [facility]. Requesting results to be sent to her. Last UTI was less than a month ago was started on Macrobid which was not helpful so switched to Keflex. The ROS was otherwise negative. PMH, Medications, labs, allergies, and recent past visits with PCP were reviewed and updated as able. PHYSICAL EXAM: BP 120/72 (BP Site: Left Arm, BP Position: Sitting, BP Cuff Size: Regular Adult) Pulse 60 Temp 37.2 C (98.9 F) Resp 16 Wt 79.8 kg (176 lb) BMI 31.58 kg/m General: Well appearing and alert CV: Regular rate and rhythm without obvious murmur Lungs: clear to auscultation bilaterally Back: straight and symmetric, no CVA tenderness Abdomen: soft, non-distended, reports of slight tenderness generalized without grimacing, guarding,or rebound pain. DATA REVIEWED: Most recent labs ASSESSMENT/PLAN: 1. Urinary tract infection without hematuria, site unspecified - ICD9: 599.0, ICD10: N39.0 (primarydiagnosis) acute - UA positive for piter esterase, proteinuria, nitrates, and leukocytes - Send urine for culture - patient with multiple allergies and would like to try keflex again. Will restart keflex for now but discussed with patient, if the culture shows a different antibiotic is indicated we will call herand prescribe appropriately - will need follow up urine 10-14 days after treatment is completed. - Patient education for prevention given 2. Dysuria - ICD9: 788.1, ICD10: R30.0 As above - UA DIP, URINE (POC) - URINE CULTURE - CEPHALEXIN 500 MG CAPSULE Prescription instructions reviewed with patient as applicable. Potential red flag symptoms discussed with the patient. Reviewed appropriate action plan to take if red flag symptoms occur. Patient agreeable to treatment plan. Jennifer Thayer APRN.CNP documented in this encounterKettering [facility]09-26-2022 Miscellaneous Notes* Telephone Encounter - Kailey Davis Ilya TODD - 06/02/2022 3:26 PM EDT Patient has been identified by name and date of : Yes Patient phones for refill(s): Requested Prescriptions Pending Prescriptions Disp Refills meloxicam (MOBIC) 15 mg tablet 90 tablet 3 Sig: Take 1 tablet by mouth once daily. Date of last office visit in primary care: 04/11/2022 Medicare Wellness: 08/01/2022 Last 2 Encounter Wt Readings: Date: Wt: 04/11/2022 78.9 kg (174 lb) 01/23/2022 79.4 kg (175 lb) Previous labs/tests for medication: Not applicable Please advise. Thank you. Kailey Caraballo LPN documented in this encounterKettering Health Troy09-21-2022 Miscellaneous Notes* Telephone Encounter - Kailey Caraballo LPN - 05/28/2022 3:10 PM EDT Patient notified, verbalized understanding. Kailey Caraballo LPN * Telephone Encounter - Dia Thayer APRN.CNP - 05/28/2022 1:30 PM EDT I sent prescription for Keflex. If this doesn't help she will need to be seen. Can go to urgent care Dia Thayer APRN.CNP * Telephone Encounter - Mile Hunter RN - 05/28/2022 8:56 AM EDT Pt called in and reports that she had seen Dr Hansen on Thursday and she gave her Macrobid 100 mg for a UTI. She reports the symptoms are back and the provider is out so they told her to call her PCP.She reports pain on urination, chills, cloudy foul smelling urine, and pain on the outside of the urinary tract opening. She reports that Dr Hansen's office is supposed to be faxing something over to provider. Pt states she had a refill on the Macrobid, but they told her not to use that since it didn't help the first time. She is asking if provider would [facility] [place] I told her provider may need to see her in the office. Please call and advise. documented in this encounterKettering [facility]09-01-2022 Miscellaneous Notes* Telephone Encounter - Ute Gibbs RN - 05/08/2022 6:09 PM EDT Spoke with patient. Given message from provider's office. Patient verbalizes understanding. Patientstates she is travelling by plane and will try to schedule with ENT tomorrow. Ute Gibbs RN * Telephone Encounter - Ken Contreras MD - 05/08/2022 5:28 PM EDT Either she comes in for a recheck, or she goes to ENT. If she plans to travel by plane, go to ENT. * Telephone Encounter - José Miguel Choudhury RN - 05/08/2022 1:02 PM EDT Patient checking on reply. Asking office phone her cell phone with reply. * Telephone Encounter - Adelaida Almendarez LPN - 05/08/2022 9:30 AM EDT Patient was in office on April 11 for ear, sinus issues was put on zpack. Patient said she is almost back to same place. Her right ear itches, no pain yet, sinus pressure and post nasal drip, throat is very dry, coughing, no fever. Patient has trip planned for Thursday and wants to make sure she is alright to travel. Patient asking if she needs another antibiotic? She called her [facility] and was told to call her PCP. [facility] if needed. Please advise documented in this encounterKettering Health Troy08-31-2022 Miscellaneous Notes* Telephone Encounter - Dia Thayer APRN.BERTHA - 05/07/2022 5:30 PM EDT PDMP website checked and validated. All prescriptions have been APPROPRIATELY filled. No suspiciousactivity was identified. 05/07/2022 by Dia Thayer APRN.MICROBIOLOGICAL LABORATORY TECHNICIAN * Telephone Encounter - Saida Flores Ma - 05/07/2022 4:54 PM EDT [place]MER: 04/11/2022 Last refill: 01/10/2022 QTY: 30 Refills: 3 documented in this encounterKettering Health Troy08-05-2022 Miscellaneous Notes* Telephone Encounter - Kassidy Peña RN - 04/11/2022 3:27 PM EDT Patient calls to report right ear ache/pressure/itch with sinus pressure and congestion. Nurse triage completed. Protocol recommends see provider within 24 hours. Patient agreeable to appointment butdeclining . Appointment scheduled. Care advice reviewed. Patient verbalizes understanding. Reason for Disposition Earache (Exceptions: brief ear pain of < 60 minutes duration, earache occurring during air travel Answer Assessment - Initial Assessment Questions 1. LOCATION: Right ear 2. ONSET: approximately a week ago 3. SEVERITY: - MODERATE (4-7): interferes with normal activities or awakens from sleep 4. URI SYMPTOMS: Slight dry non-productive cough but no runny nose. 5. FEVER: No 6. CAUSE: No recent swimming, air travel or scuba diving. No recent use of Q- tips but patient reports she feels like if she used them it would help. 7. OTHER SYMPTOMS: No headache, stiff neck, dizziness, vomiting, runny nose, or decreased hear. Reports ear pain/pressure as well as itch. Sinus pressure and congestion. Protocols used: [id number] documented in this encounterKettering Health Troy07-06-2022 Instructions* Patient Instructions* Geoff Carlos MD - 03/12/2022 3:55 PM EDT Current Ophthalmic Meds brimonidine-timolol (COMBIGAN) 0.2-0.5 % ophthalmic solution Use 1 Drop in the left eye twice daily. latanoprost (XALATAN) 0.005 % ophthalmic solution Use 1 Drop in both eyes daily at bedtime. If you have any questions please contact our office at [phone]. After office hours or on the weekend, please call Dr. Carlos on his cell phone at [phone]. documented in this encounterKettering Health Troy07-06-2022 History of Present illness Narrative* Geoff Carlos MD - 03/12/2022 3:54 PM EDT ASSESSMENT/PLAN: 1. Primary open angle glaucoma (POAG) of both eyes, mild stage - ICD9: 365.11, 365.71, ICD10: H40.1131 (primary diagnosis) - OCT OPTIC NERVE CIRRUS OU (BOTH EYES) - VISUAL FIELD 24-2 OU (BOTH EYES) Current Ophthalmic Meds brimonidine-timolol (COMBIGAN) 0.2-0.5 % ophthalmic solution Use 1 Drop in the left eye twice daily. latanoprost (XALATAN) 0.005 % ophthalmic solution Use 1 Drop in both eyes daily at bedtime. The nature of glaucoma was discussed, with emphasis on the non-reversible damage to the optic nerve. Treatment options and the importance of regular examinations and testing were covered in detail, as well as the consequences of non-compliance. The patient was given the opportunity to ask questions. 2. Optic cupping of both eyes - ICD9: 377.14, ICD10: H47.233 Monitor 3. Nonexudative age-related macular degeneration, bilateral, intermediate dry stage - ICD9: 362.51,ICD10: H35.3132 Please monitor each eye daily with Amsler Grid. AREDS 2 Vitamins are available over the counter at any drug store. 4. Essential hypertension - ICD9: 401.9, ICD10: I10 Continue to monitor with primary care physician. Geoff Carlos MD I have confirmed and edited as necessary the relevant ophthalmic history, review of systems, surgical history, and ophthalmological examination findings as obtained by the ophthalmic technical staff.I have seen and examined Geoffrey Nassar. I have discussed the examination findings, diagnosis, and treatment options with Geoffrey Nassar and/or her family. I have also reviewed and agree with the assessment and plan as stated above and agree with all its relevant components. I gave the patient the opportunity to ask questions about the findings, diagnosis, and treatment options. documented in this encounterKettering [facility] Troy06-06-2022 Miscellaneous Notes* Telephone Encounter - Zane Jack - 02/10/2022 10:08 AM EDT Patient has been identified by name and date of : Yes Pending Prescriptions Disp Refills BRIMONIDINE 0.2 %-TIMOLOL 0.5 % EYE DROPS 5 mL 1 Sig: Use 1 Drop in the left eye twice daily. GEE: No LATANOPROST 0.005 % EYE DROPS 5 mL 2 Sig: Use 1 Drop in both eyes daily at bedtime. GEE: No RX INSTRUCTIONS: Patient aware RX will be sent to pharmacy. No need to notify patient. Zane Jack documented in this encounterKettering Health Troy05-19-2022 History of Present illness Narrative* Shakira Vazquez RT(R) - 01/23/2022 3:00 PM EDT Radiology Service Progress Note PATIENT NAME: Geoffrey Nassar DATE OF SERVICE: January 23, 2022 TIME: 2:56 PM PATIENT IDENTITY VERIFICATION COMPLETED USING TWO (2) IDENTIFIERS: Name and Date of confirmedby patient verbally. FALL SCREENING: Has the patient had 2 falls in the last year or 1 fall with injury or currently using an Ambulatory Assistive Device (Walker, Cane, Wheelchair, Crutches, etc.)? No PATIENT GENDER DATA: Female. status: : No status: NO. PATIENT RELEVANT IMPLANT DATA REVIEWED: Yes RADIOLOGY DEPARTMENT: General X-ray: Exam(s) Completed: Chest X-Ray PERIPHERAL IV DATA: Not applicable SIGNED BY: RT Rogerio(R) January 23, 2022 2:56 PM documented in this encounterKettering Health Troy05-19-2022 History of Present illness Narrative* Ken Contreras MD - 01/23/2022 1:54 PM EDT This note was created using MRI Interventionsriter. Subjective Geoffrey Nassar is a 86 year old female. 1.5 weeks ago, she had 2 episodes of sharp LUQ pain lastingseconds, moderately severe, only when laying down, without other associated symptoms. She sees Dr. Jaswant Miller in a few weeks. She wondered if it was pacemaker pain. Her hypertension and GERD were controlled. We reviewed her labs. 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 Review of Systems Constitutional: Negative for appetite change, chills, diaphoresis, fever and unexpected weight change. HENT: Negative. Respiratory: Negative for cough, chest tightness, shortness of breath and wheezing. Cardiovascular: Positive for chest pain. Negative for palpitations and leg swelling. Gastrointestinal: Negative for abdominal pain, nausea and vomiting. Genitourinary: Negative. Skin: Negative. ACTIVE PROBLEM LIST Depressive disorder w/ seasonal affective disorder Hypothyroidism Extrinsic Asthma Upper Back Pain Essential Hypertension Bronchiectasis Without Complication (Hcc) Osteoarthritis Ddd (Degenerative Disc Disease), Lumbar Irritable Bowel Syndrome With Both Constipation and Diarrhea Vitamin D Deficiency Anxiety Gastroesophageal Reflux Disease With Esophagitis Tubular Adenoma of Colon Obesity, Class I, Bmi 30-34.9 Nonexudative Age-Related Macular Degeneration, Bilateral, 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 Hx of Laser Iridotomy 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, Mild Stage 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 LORazepam (ATIVAN) 2 mg tab Take 1 tablet by mouth daily at bedtime for 120 days. lisinopril (ZESTRIL, PRINIVIL) 40 mg tablet Take 1 tablet by mouth once daily. brimonidine-timolol (COMBIGAN) 0.2-0.5 % ophthalmic solution Use 1 Drop in the left eye twice daily. BREO ELLIPTA 100-25 mcg/dose inhaler amLODIPine (NORVASC) 5 mg tablet Take 1 tablet by mouth once daily. latanoprost (XALATAN) 0.005 % ophthalmic solution Use 1 Drop in both eyes daily at bedtime. ergocalciferol 50,000 unit capsule (VITAMIN D2, DRISDOL) Take 1 capsule by mouth every 2 weeks. levothyroxine (SYNTHROID) 88 mcg tablet TAKE 1 TABLET DAILY EXCEPT DO NOT TAKE ON SUNDAYS. TAKE ON AN EMPTY STOMACH lamoTRIgine (LAMICTAL) 25 mg tablet Take 1 tablet by mouth once daily. pantoprazole DR (PROTONIX) 20 mg tablet Take 2 tablets by mouth once daily. GEMTESA 75 mg tablet meloxicam (MOBIC) 15 mg tablet Take 1 tablet by mouth once daily. baclofen (LIORESAL) 10 mg tablet Take 0.5 tablets by mouth twice daily. triamcinolone (KENALOG) 0.025 % cream Apply to affected area once daily. vit C/E/zinc ox/trevor/lut/zeax (ICAPS AREDS2 ORAL) loratadine (CLARITIN REDITABS) 10 mg dissolvable tablet Take 1 tablet by mouth once daily as needed(allergies). DULCOLAX, BISACODYL, ORAL Take 1 tablet by mouth as needed. aspirin, enteric coated (ASPIRIN, ENTERIC COATED) 81 mg EC tablet Take 81 mg by mouth once daily. acetaminophen (TYLENOL ARTHRITIS PAIN) 650 mg CR tablet Take 1 tablet by mouth daily at bedtime. polyethylene glycol 3350 (MIRALAX, GLYCOLAX) 17 gram/dose powder Drink a mix of 1 scoop in 8oz of water/beverage once daily as needed for constipation. cyanocobalamin (VITAMIN B-12) 1,000 mcg tab Take 1,000 mcg by mouth once daily. albuterol HFA (VENTOLIN HFA) 90 mcg/actuation inhaler Inhale 2 Puffs as instructed every 4 hours asneeded for Wheezing/Shortness of Breath. MULTIVITAMIN TAB Take one(1) tablet daily. nitrofurantoin monohydrate and macrocrystal (MACROBID) 100 mg capsule TAKE 1 CAPSULE BY MOUTH TWICEDAILY FOR 7 DAYS (Patient not taking: Reported on 01/07/2022) albuterol (PROVENTIL) 2.5 mg /3 mL (0.083 %) nebulizer solution Use 2.5 mg via nebulizer every 4 hours as needed. (Patient not taking: Reported on 10/08/2021 ) ketotifen fumarate (ZADITOR) 0.025 % (0.035 %) ophthalmic solution Use 1 Drop in both eyes twice daily. (Patient not taking: Reported on 10/08/2021) No current facility-administered medications for this visit. Objective BP 118/70 (BP Site: Left Arm, BP Position: Sitting, BP Cuff Size: Large Adult) Pulse 60 Temp 36.8 C (98.3 F) (Temporal Artery) Resp 16 Wt 79.4 kg (175 lb) SpO2 92% BMI 31.40 kg/m Physical Exam Constitutional: General: She is not in acute distress. Cardiovascular: Rate and Rhythm: Normal rate and regular rhythm. Heart sounds: No murmur heard. No gallop. Pulmonary: Breath sounds: Rales present. Abdominal: Tenderness: There is abdominal tenderness. There is guarding. Comments: Chronic tenderness. Musculoskeletal: Right lower leg: No edema. Left lower leg: No edema. Neurological: General: No focal deficit present. Mental Status: She is alert. Psychiatric: Mood and Affect: Mood normal. Component Latest Ref Rng & Units 01/16/2022 Protein, Total 6.3 - 8.0 g/dL 7.2 Albumin 3.9 - 4.9 g/dL 4.1 Calcium 8.5 - 10.2 mg/dL 9.5 Bilirubin, Total 0.2 - 1.3 mg/dL 0.2 Alkaline Phosphatase 34 - 123 U/L 131 (H) AST 13 - 35 U/L 16 ALT 7 - 38 U/L 9 Glucose 74 - 99 mg/dL 98 BUN 7 - 21 mg/dL 22 (H) Creatinine 0.58 - 0.96 mg/dL 0.93 Sodium 136 - 144 mmol/L 141 Potassium 3.7 - 5.1 mmol/L 4.1 Chloride 97 - 105 mmol/L 104 CO2 22 - 30 mmol/L 28 Anion Gap 9 - 18 mmol/L 9 eGFR >=60 mL/min/1.73m 61 Cholesterol, Total <200 mg/dL 168 Triglyceride <150 mg/dL 144 HDL Cholesterol >39 mg/dL 43 Non HDL Cholesterol <130 mg/dL 125 Fasting Time hrs 12 VLDL Cholesterol <30 mg/dL 29 TC:HDL Ratio <5.10 3.91 LDL Cholesterol <100 mg/dL 96 LDL:HDL Ratio <2.54 2.23 Vitamin D 25 Hydroxy 31.0 - 80.0 ng/mL 71.2 TSH 0.270 - 4.200 mIU/L 1.570 Assessment and Plan 1. Pleurisy - ICD9: 511.0, ICD10: R09.1 (primary diagnosis) - XR CHEST 2V FRONTAL/LAT 2. Vitamin D deficiency - ICD9: 268.9, ICD10: E55.9 Reduce dose. - ERGOCALCIFEROL (VITAMIN D2) 1,250 MCG (50,000 UNIT) CAPSULE - VITAMIN D 25 HYDROXY 3. Bronchiectasis without complication (HCC) - ICD9: 494.0, ICD10: J47.[address] Aniyah Miller. 4. Essential hypertension - ICD9: 401.9, ICD10: I10 - good control The ASCVD Risk score (Sundeep DC Jr., et al., 2013) failed to calculate for the following reasons: The 2013 ASCVD risk score is only valid for ages 40 to 79 Her presumptive risk is 18%, ideal risk 12%. We discussed taking statin for prevention of heart disease and stroke. She was not decided. - CBC - BASIC METABOLIC PNL - LIPID PANEL BASIC 5. Acquired hypothyroidism - ICD9: 244.9, ICD10: E03.9 - continue current dose of Synthroid 6. Elevated alkaline phosphatase measurement - ICD9: 790.5, ICD10: R74.8 Stable. - ALK PHOS ISOENZYM BL 7. Need for COVID-19 vaccine - ICD9: V04.89, ICD10: Z23 - PFIZER-BIONTECH COVID-19 VACCINE, AGE 12+ YR ([facility]) 8. Personal history of squamous cell carcinoma of skin - ICD9: V10.83, ICD10: Z85.828 Noted. Ken Contreras MD [facility] History of Present illness Narrative* Ria Matamoros DO - 01/07/2022 11:22 AM EDT This office note has been dictated. 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 Presence of cardiac pacemaker May, acute Sick sinus syndrome acute Sinus bradycardia acute Asthma acute [facility] Work Phone: 1(469) 391-516009-01-2021 Evaluation note* Diagnosis Onset Date Resolution Status 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 Presence of cardiac pacemaker May, acute Sick sinus syndrome acute Sinus bradycardia [facility] Work Phone: 1(163) 927-420709-01-2021 Evaluation note* Diagnosis Onset Date Resolution Status 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 Presence of cardiac pacemaker May, acute Sick sinus syndrome acute Sinus bradycardia acute 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 Essential hypertension acute Presence of cardiac pacemaker May, acute Sinus bradycardia acute [facility] Work Phone: 1(686) 621-981208-13-2021 History of Past illness Narrative* Problem Noted Date Resolved Date 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04/07 Conjunctivitis 11/06/2020 04/24/2021 Pseudophakia, both eyes 07/23/2020 04/24/20 Glaucoma suspect of both eyes 05/01/2020 Narrow angle glaucoma suspect of both eyes 05/0104/24/2021 Pain in right hip 08/05/2017 09/30/2017 Gait disturbance 01/29/2017 06/24/2017 Pulmonary nodule 01/08/2017 09/30/2017 Anticoagulated 11/25/2016 09/30/2017 Pulmonary embolism with acute cor pulmonale 11/0612/29/2017 Overview: Dr. Jaswant Miller, pulmonary. On home oxygen therapy 11/24/2016 7 Medicare annual wellness visit, initial 06/22/20 12 06/24/2017 Foraminal stenosis of cervical region 01/30/2012 06/24/2017 Myofascial pain 01/30/2012 05/20/2016 Lumbar strain 01/30/2012 09/23/2016 Lumbar spondylosis 01/30/2012 06/24/2017 Other disorder of muscle, ligament, and fascia 1 09/09/2010 12/24/2015 Enthesopathy of hip region 07/08/201104/24 Hyperlipemia 06/18/2010 01/08/2017 Dizziness and giddiness 08/27/2009 11/12/19 13 Pain in joint, pelvic region and thigh 8 05/20/2016 Other specified disorders of rotator cuff syndrome of shoulder and allied disorders 04/09/2007 09/23/2016 Bronchiectasis 07/29/2006 11/27/2009 Unspecified asthma(493.90) 03/12/200601/20 NERVE COMPRESSION POSTOPERATIVE 12/19/2005 09/23/2016 Arthropathy, unspecified, site unspecified 10/0712/24/2015 ASA CLASS II 03/17/2005 09/23/2016 Abdominal pain, left lower quadrant 11/11/2012 Alternating constipation and diarrhea 07/04/2020 documented as of this encounter (statuses as of 12/02/2021) [facility] of Past illness Narrative* Problem Noted Date Resolved Date 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04/07 Conjunctivitis 11/06/2020 04/24/2021 Pseudophakia, both eyes 07/23/2020 04/24/20 21 Glaucoma suspect of both eyes 05/01/2020 Narrow angle glaucoma suspect of both eyes 05/0104/24/2021 Pain in right hip 08/05/2017 09/30/2017 Gait disturbance 01/29/2017 06/24/2017 Pulmonary nodule 01/08/2017 09/30/2017 Anticoagulated 11/25/2016 09/30/2017 Pulmonary embolism with acute cor pulmonale 11/0612/29/2017 Overview: Dr. Jaswant Miller, pulmonary. On home oxygen therapy 11/24/2016 7 Medicare annual wellness visit, initial 06/22/20 12 06/24/2017 Foraminal stenosis of cervical region 01/30/2012 06/24/2017 Myofascial pain 01/30/2012 05/20/2016 Lumbar strain 01/30/2012 09/23/2016 Lumbar spondylosis 01/30/2012 06/24/2017 Other disorder of muscle, ligament, and fascia 1 09/09/2010 12/24/2015 Enthesopathy of hip region 07/08/201104/24 Hyperlipemia 06/18/2010 01/08/2017 Dizziness and giddiness 08/27/2009 11/12/19 13 Pain in joint, pelvic region and thigh 8 05/20/2016 Other specified disorders of rotator cuff syndrome of shoulder and allied disorders 04/09/2007 09/23/2016 Bronchiectasis 07/29/2006 11/27/2009 Unspecified asthma(493.90) 03/12/200601/20 NERVE COMPRESSION POSTOPERATIVE 12/19/2005 09/23/2016 Arthropathy, unspecified, site unspecified 10/0712/24/2015 ASA CLASS II 03/17/2005 09/23/2016 Abdominal pain, left lower quadrant 11/11/2012 Alternating constipation and diarrhea 07/04/2020 documented as of this encounter (statuses as of 01/07/2022) [facility] of Past illness Narrative* Problem Noted Date Resolved Date 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04/07 Conjunctivitis 11/06/2020 04/24/2021 Pseudophakia, both eyes 07/23/2020 04/24/20 21 Glaucoma suspect of both eyes 05/01/2020 Narrow angle glaucoma suspect of both eyes 05/0104/24/2021 Pain in right hip 08/05/2017 09/30/2017 Gait disturbance 01/29/2017 06/24/2017 Pulmonary nodule 01/08/2017 09/30/2017 Anticoagulated 11/25/2016 09/30/2017 Pulmonary embolism with acute cor pulmonale 11/0612/29/2017 Overview: Dr. Jaswant Miller, pulmonary. On home oxygen therapy 11/24/2016 7 Medicare annual wellness visit, initial 06/22/20 12 06/24/2017 Foraminal stenosis of cervical region 01/30/2012 06/24/2017 Myofascial pain 01/30/2012 05/20/2016 Lumbar strain 01/30/2012 09/23/2016 Lumbar spondylosis 01/30/2012 06/24/2017 Other disorder of muscle, ligament, and fascia 1 09/09/2010 12/24/2015 Enthesopathy of hip region 07/08/201104/24 Hyperlipemia 06/18/2010 01/08/2017 Dizziness and giddiness 08/27/2009 11/12/19 13 Pain in joint, pelvic region and thigh 8 05/20/2016 Other specified disorders of rotator cuff syndrome of shoulder and allied disorders 04/09/2007 09/23/2016 Bronchiectasis 07/29/2006 11/27/2009 Unspecified asthma(493.90) 03/12/200601/20 NERVE COMPRESSION POSTOPERATIVE 12/19/2005 09/23/2016 Arthropathy, unspecified, site unspecified 10/0712/24/2015 ASA CLASS II 03/17/2005 09/23/2016 Abdominal pain, left lower quadrant 11/11/2012 Alternating constipation and diarrhea 07/04/2020 documented as of this encounter (statuses as of 01/10/2022) [facility] of Past illness Narrative* Problem Noted Date Resolved Date 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04/07 Conjunctivitis 11/06/2020 04/24/2021 Pseudophakia, both eyes 07/23/2020 04/24/20 21 Glaucoma suspect of both eyes 05/01/2020 Narrow angle glaucoma suspect of both eyes 05/0104/24/2021 Pain in right hip 08/05/2017 09/30/2017 Gait disturbance 01/29/2017 06/24/2017 Pulmonary nodule 01/08/2017 09/30/2017 Anticoagulated 11/25/2016 09/30/2017 Pulmonary embolism with acute cor pulmonale 11/0612/29/2017 Overview: Dr. Jaswant Miller, pulmonary. On home oxygen therapy 11/24/2016 7 Medicare annual wellness visit, initial 06/22/20 12 06/24/2017 Foraminal stenosis of cervical region 01/30/2012 06/24/2017 Myofascial pain 01/30/2012 05/20/2016 Lumbar strain 01/30/2012 09/23/2016 Lumbar spondylosis 01/30/2012 06/24/2017 Other disorder of muscle, ligament, and fascia 1 09/09/2010 12/24/2015 Enthesopathy of hip region 07/08/201104/24 Hyperlipemia 06/18/2010 01/08/2017 Dizziness and giddiness 08/27/2009 11/12/19 13 Pain in joint, pelvic region and thigh 8 05/20/2016 Other specified disorders of rotator cuff syndrome of shoulder and allied disorders 04/09/2007 09/23/2016 Bronchiectasis 07/29/2006 11/27/2009 Unspecified asthma(493.90) 03/12/200601/20 NERVE COMPRESSION POSTOPERATIVE 12/19/2005 09/23/2016 Arthropathy, unspecified, site unspecified 10/0712/24/2015 ASA CLASS II 03/17/2005 09/23/2016 Abdominal pain, left lower quadrant 11/11/2012 Alternating constipation and diarrhea 07/04/2020 documented as of this encounter (statuses as of 01/23/2022) [facility] of Past illness Narrative* Problem Noted Date Resolved Date 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04/07 Conjunctivitis 11/06/2020 04/24/2021 Pseudophakia, both eyes 07/23/2020 04/24/20 21 Glaucoma suspect of both eyes 05/01/2020 Narrow angle glaucoma suspect of both eyes 05/0104/24/2021 Pain in right hip 08/05/2017 09/30/2017 Gait disturbance 01/29/2017 06/24/2017 Pulmonary nodule 01/08/2017 09/30/2017 Anticoagulated 11/25/2016 09/30/2017 Pulmonary embolism with acute cor pulmonale 11/0612/29/2017 Overview: Dr. Jaswant Miller, pulmonary. On home oxygen therapy 11/24/2016 7 Medicare annual wellness visit, initial 06/22/20 12 06/24/2017 Foraminal stenosis of cervical region 01/30/2012 06/24/2017 Myofascial pain 01/30/2012 05/20/2016 Lumbar strain 01/30/2012 09/23/2016 Lumbar spondylosis 01/30/2012 06/24/2017 Other disorder of muscle, ligament, and fascia 1 09/09/2010 12/24/2015 Enthesopathy of hip region 07/08/201104/24 Hyperlipemia 06/18/2010 01/08/2017 Dizziness and giddiness 08/27/2009 11/12/19 13 Pain in joint, pelvic region and thigh 8 05/20/2016 Other specified disorders of rotator cuff syndrome of shoulder and allied disorders 04/09/2007 09/23/2016 Bronchiectasis 07/29/2006 11/27/2009 Unspecified asthma(493.90) 03/12/200601/20 NERVE COMPRESSION POSTOPERATIVE 12/19/2005 09/23/2016 Arthropathy, unspecified, site unspecified 10/0712/24/2015 ASA CLASS II 03/17/2005 09/23/2016 Abdominal pain, left lower quadrant 11/11/2012 Alternating constipation and diarrhea 07/04/2020 documented as of this encounter (statuses as of 02/10/2022) [facility] of Past illness Narrative* Problem Noted Date Resolved Date 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04/07 Conjunctivitis 11/06/2020 04/24/2021 Pseudophakia, both eyes 07/23/2020 04/24/20 21 Glaucoma suspect of both eyes 05/01/2020 Narrow angle glaucoma suspect of both eyes 05/0104/24/2021 Pain in right hip 08/05/2017 09/30/2017 Gait disturbance 01/29/2017 06/24/2017 Pulmonary nodule 01/08/2017 09/30/2017 Anticoagulated 11/25/2016 09/30/2017 Pulmonary embolism with acute cor pulmonale 11/0612/29/2017 Overview: Dr. Jaswant Miller, pulmonary. On home oxygen therapy 11/24/2016 7 Medicare annual wellness visit, initial 06/22/20 12 06/24/2017 Foraminal stenosis of cervical region 01/30/2012 06/24/2017 Myofascial pain 01/30/2012 05/20/2016 Lumbar strain 01/30/2012 09/23/2016 Lumbar spondylosis 01/30/2012 06/24/2017 Other disorder of muscle, ligament, and fascia 1 09/09/2010 12/24/2015 Enthesopathy of hip region 07/08/201104/24 Hyperlipemia 06/18/2010 01/08/2017 Dizziness and giddiness 08/27/2009 11/12/19 13 Pain in joint, pelvic region and thigh 8 05/20/2016 Other specified disorders of rotator cuff syndrome of shoulder and allied disorders 04/09/2007 09/23/2016 Bronchiectasis 07/29/2006 11/27/2009 Unspecified asthma(493.90) 03/12/200601/20 NERVE COMPRESSION POSTOPERATIVE 12/19/2005 09/23/2016 Arthropathy, unspecified, site unspecified 10/0712/24/2015 ASA CLASS II 03/17/2005 09/23/2016 Abdominal pain, left lower quadrant 11/11/2012 Alternating constipation and diarrhea 07/04/2020 documented as of this encounter (statuses as of 03/12/2022) [facility] of Past illness Narrative* Problem Noted Date Resolved Date 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04/07 Conjunctivitis 11/06/2020 04/24/2021 Pseudophakia, both eyes 07/23/2020 04/24/20 21 Glaucoma suspect of both eyes 05/01/2020 Narrow angle glaucoma suspect of both eyes 05/0104/24/2021 Pain in right hip 08/05/2017 09/30/2017 Gait disturbance 01/29/2017 06/24/2017 Pulmonary nodule 01/08/2017 09/30/2017 Anticoagulated 11/25/2016 09/30/2017 Pulmonary embolism with acute cor pulmonale 11/0612/29/2017 Overview: Dr. Jaswant Miller, pulmonary. On home oxygen therapy 11/24/2016 7 Medicare annual wellness visit, initial 06/22/20 12 06/24/2017 Foraminal stenosis of cervical region 01/30/2012 06/24/2017 Myofascial pain 01/30/2012 05/20/2016 Lumbar strain 01/30/2012 09/23/2016 Lumbar spondylosis 01/30/2012 06/24/2017 Other disorder of muscle, ligament, and fascia 1 09/09/2010 12/24/2015 Enthesopathy of hip region 07/08/201104/24 Hyperlipemia 06/18/2010 01/08/2017 Dizziness and giddiness 08/27/2009 11/12/19 13 Pain in joint, pelvic region and thigh 8 05/20/2016 Other specified disorders of rotator cuff syndrome of shoulder and allied disorders 04/09/2007 09/23/2016 Bronchiectasis 07/29/2006 11/27/2009 Unspecified asthma(493.90) 03/12/200601/20 NERVE COMPRESSION POSTOPERATIVE 12/19/2005 09/23/2016 Arthropathy, unspecified, site unspecified 10/0712/24/2015 ASA CLASS II 03/17/2005 09/23/2016 Abdominal pain, left lower quadrant 11/11/2012 Alternating constipation and diarrhea 07/04/2020 documented as of this encounter (statuses as of 04/11/2022) [facility] of Past illness Narrative* Problem Noted Date Resolved Date 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04/07 Conjunctivitis 11/06/2020 04/24/2021 Pseudophakia, both eyes 07/23/2020 04/24/20 Glaucoma suspect of both eyes 05/01/2020 Narrow angle glaucoma suspect of both eyes 05/0104/24/2021 Pain in right hip 08/05/2017 09/30/2017 Gait disturbance 01/29/2017 06/24/2017 Pulmonary nodule 01/08/2017 09/30/2017 Anticoagulated 11/25/2016 09/30/2017 Pulmonary embolism with acute cor pulmonale 11/0612/29/2017 Overview: Dr. Jaswant Miller, pulmonary. On home oxygen therapy 11/24/2016 7 Medicare annual wellness visit, initial 06/22/20 12 06/24/2017 Foraminal stenosis of cervical region 01/30/2012 06/24/2017 Myofascial pain 01/30/2012 05/20/2016 Lumbar strain 01/30/2012 09/23/2016 Lumbar spondylosis 01/30/2012 06/24/2017 Other disorder of muscle, ligament, and fascia 1 09/09/2010 12/24/2015 Enthesopathy of hip region 07/08/201104/24 Hyperlipemia 06/18/2010 01/08/2017 Dizziness and giddiness 08/27/2009 11/12/19 13 Pain in joint, pelvic region and thigh 8 05/20/2016 Other specified disorders of rotator cuff syndrome of shoulder and allied disorders 04/09/2007 09/23/2016 Bronchiectasis 07/29/2006 11/27/2009 Unspecified asthma(493.90) 03/12/200601/20 NERVE COMPRESSION POSTOPERATIVE 12/19/2005 09/23/2016 Arthropathy, unspecified, site unspecified 10/0712/24/2015 ASA CLASS II 03/17/2005 09/23/2016 Abdominal pain, left lower quadrant 11/11/2012 Alternating constipation and diarrhea 07/04/2020 documented as of this encounter (statuses as of 04/16/2022) [facility] of Past illness Narrative* Problem Noted Date Resolved Date 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04/07 Conjunctivitis 11/06/2020 04/24/2021 Pseudophakia, both eyes 07/23/2020 04/24/20 Glaucoma suspect of both eyes 05/01/2020 Narrow angle glaucoma suspect of both eyes 05/0104/24/2021 Pain in right hip 08/05/2017 09/30/2017 Gait disturbance 01/29/2017 06/24/2017 Pulmonary nodule 01/08/2017 09/30/2017 Anticoagulated 11/25/2016 09/30/2017 Pulmonary embolism with acute cor pulmonale 03/2 12/29/2017 Overview: Dr. Jaswant Miller, pulmonary. On home oxygen therapy 11/24/2016 7 Medicare annual wellness visit, initial 06/22/20 12 06/24/2017 Foraminal stenosis of cervical region 01/30/2012 06/24/2017 Myofascial pain 01/30/2012 05/20/2016 Lumbar strain 01/30/2012 09/23/2016 Lumbar spondylosis 01/30/2012 06/24/2017 Other disorder of muscle, ligament, and fascia 1 09/09/2010 12/24/2015 Enthesopathy of hip region 07/08/201104/24 Hyperlipemia 06/18/2010 01/08/2017 Dizziness and giddiness 08/27/2009 11/12/19 13 Pain in joint, pelvic region and thigh 8 05/20/2016 Other specified disorders of rotator cuff syndrome of shoulder and allied disorders 04/09/2007 09/23/2016 Bronchiectasis 07/29/2006 11/27/2009 Unspecified asthma(493.90) 03/12/200601/20 NERVE COMPRESSION POSTOPERATIVE 12/19/2005 09/23/2016 Arthropathy, unspecified, site unspecified 10/0712/24/2015 ASA CLASS II 03/17/2005 09/23/2016 Abdominal pain, left lower quadrant 11/11/2012 Alternating constipation and diarrhea 07/04/2020 documented as of this encounter (statuses as of 05/07/2022) [facility] History of Past illness Narrative* Problem Noted Date Resolved Date 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04/07 Conjunctivitis 11/06/2020 04/24/2021 Pseudophakia, both eyes 07/23/2020 04/24/20 21 Glaucoma suspect of both eyes 05/01/2020 Narrow angle glaucoma suspect of both eyes 05/0104/24/2021 Pain in right hip 08/05/2017 09/30/2017 Gait disturbance 01/29/2017 06/24/2017 Pulmonary nodule 01/08/2017 09/30/2017 Anticoagulated 11/25/2016 09/30/2017 Pulmonary embolism with acute cor pulmonale 03/2 12/29/2017 Overview: Dr. Jaswant Miller, pulmonary. On home oxygen therapy 11/24/2016 7 Medicare annual wellness visit, initial 06/22/20 12 06/24/2017 Foraminal stenosis of cervical region 01/30/2012 06/24/2017 Myofascial pain 01/30/2012 05/20/2016 Lumbar strain 01/30/2012 09/23/2016 Lumbar spondylosis 01/30/2012 06/24/2017 Other disorder of muscle, ligament, and fascia 1 09/09/2010 12/24/2015 Enthesopathy of hip region 07/08/201104/24 Hyperlipemia 06/18/2010 01/08/2017 Dizziness and giddiness 08/27/2009 11/12/19 13 Pain in joint, pelvic region and thigh 8 05/20/2016 Other specified disorders of rotator cuff syndrome of shoulder and allied disorders 04/09/2007 09/23/2016 Bronchiectasis 07/29/2006 11/27/2009 Unspecified asthma(493.90) 03/12/200601/20 NERVE COMPRESSION POSTOPERATIVE 12/19/2005 09/23/2016 Arthropathy, unspecified, site unspecified 10/0712/24/2015 ASA CLASS II 03/17/2005 09/23/2016 Abdominal pain, left lower quadrant 11/11/2012 Alternating constipation and diarrhea 07/04/2020 documented as of this encounter (statuses as of 05/08/2022) [facility] of Past illness Narrative* Problem Noted Date Resolved Date 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04/07 Conjunctivitis 11/06/2020 04/24/2021 Pseudophakia, both eyes 07/23/2020 04/24/20 Glaucoma suspect of both eyes 05/01/2020 Narrow angle glaucoma suspect of both eyes 05/0104/24/2021 Pain in right hip 08/05/2017 09/30/2017 Gait disturbance 01/29/2017 06/24/2017 Pulmonary nodule 01/08/2017 09/30/2017 Anticoagulated 11/25/2016 09/30/2017 Pulmonary embolism with acute cor pulmonale 11/0612/29/2017 Overview: Dr. Jaswant Miller, pulmonary. On home oxygen therapy 11/24/2016 7 Medicare annual wellness visit, initial 06/22/20 12 06/24/2017 Foraminal stenosis of cervical region 01/30/2012 06/24/2017 Myofascial pain 01/30/2012 05/20/2016 Lumbar strain 01/30/2012 09/23/2016 Lumbar spondylosis 01/30/2012 06/24/2017 Other disorder of muscle, ligament, and fascia 1 09/09/2010 12/24/2015 Enthesopathy of hip region 07/08/201104/24 Hyperlipemia 06/18/2010 01/08/2017 Dizziness and giddiness 08/27/2009 11/12/19 13 Pain in joint, pelvic region and thigh 8 05/20/2016 Other specified disorders of rotator cuff syndrome of shoulder and allied disorders 04/09/2007 09/23/2016 Bronchiectasis 07/29/2006 11/27/2009 Unspecified asthma(493.90) 03/12/200601/20 NERVE COMPRESSION POSTOPERATIVE 12/19/2005 09/23/2016 Arthropathy, unspecified, site unspecified 10/0712/24/2015 ASA CLASS II 03/17/2005 09/23/2016 Abdominal pain, left lower quadrant 11/11/2012 Alternating constipation and diarrhea 07/04/2020 documented as of this encounter (statuses as of 05/28/2022) [facility]08-13-2021 History of Past illness Narrative* Problem Noted Date Resolved Date 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04/07 Conjunctivitis 11/06/2020 04/24/2021 Pseudophakia, both eyes 07/23/2020 04/24/20 Glaucoma suspect of both eyes 05/01/2020 Narrow angle glaucoma suspect of both eyes 05/0104/24/2021 Pain in right hip 08/05/2017 09/30/2017 Gait disturbance 01/29/2017 06/24/2017 Pulmonary nodule 01/08/2017 09/30/2017 Anticoagulated 11/25/2016 09/30/2017 Pulmonary embolism with acute cor pulmonale 11/0612/29/2017 Overview: Dr. Jaswant Miller, pulmonary. On home oxygen therapy 11/24/2016 7 Medicare annual wellness visit, initial 06/22/20 12 06/24/2017 Foraminal stenosis of cervical region 01/30/2012 06/24/2017 Myofascial pain 01/30/2012 05/20/2016 Lumbar strain 01/30/2012 09/23/2016 Lumbar spondylosis 01/30/2012 06/24/2017 Other disorder of muscle, ligament, and fascia 1 09/09/2010 12/24/2015 Enthesopathy of hip region 07/08/201104/24 Hyperlipemia 06/18/2010 01/08/2017 Dizziness and giddiness 08/27/2009 11/12/19 13 Pain in joint, pelvic region and thigh 8 05/20/2016 Other specified disorders of rotator cuff syndrome of shoulder and allied disorders 04/09/2007 09/23/2016 Bronchiectasis 07/29/2006 11/27/2009 Unspecified asthma(493.90) 03/12/200601/20 NERVE COMPRESSION POSTOPERATIVE 12/19/2005 09/23/2016 Arthropathy, unspecified, site unspecified 10/0712/24/2015 ASA CLASS II 03/17/2005 09/23/2016 Abdominal pain, left lower quadrant 11/11/2012 Alternating constipation and diarrhea 07/04/2020 documented as of this encounter (statuses as of 06/03/2022) [facility]-13-2021 History of Past illness Narrative* Problem Noted Date Resolved Date 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04/07 Conjunctivitis 11/06/2020 04/24/2021 Pseudophakia, both eyes 07/23/2020 04/24/20 Glaucoma suspect of both eyes 05/01/2020 Narrow angle glaucoma suspect of both eyes 05/0104/24/2021 Pain in right hip 08/05/2017 09/30/2017 Gait disturbance 01/29/2017 06/24/2017 Pulmonary nodule 01/08/2017 09/30/2017 Anticoagulated 11/25/2016 09/30/2017 Pulmonary embolism with acute cor pulmonale 11/0612/29/2017 Overview: Dr. Jaswant Miller, pulmonary. On home oxygen therapy 11/24/2016 7 Medicare annual wellness visit, initial 06/22/20 12 06/24/2017 Foraminal stenosis of cervical region 01/30/2012 06/24/2017 Myofascial pain 01/30/2012 05/20/2016 Lumbar strain 01/30/2012 09/23/2016 Lumbar spondylosis 01/30/2012 06/24/2017 Other disorder of muscle, ligament, and fascia 1 09/09/2010 12/24/2015 Enthesopathy of hip region 07/08/201104/24 Hyperlipemia 06/18/2010 01/08/2017 Dizziness and giddiness 08/27/2009 11/12/19 13 Pain in joint, pelvic region and thigh 8 05/20/2016 Other specified disorders of rotator cuff syndrome of shoulder and allied disorders 04/09/2007 09/23/2016 Bronchiectasis 07/29/2006 11/27/2009 Unspecified asthma(493.90) 03/12/200601/20 NERVE COMPRESSION POSTOPERATIVE 12/19/2005 09/23/2016 Arthropathy, unspecified, site unspecified 10/0712/24/2015 ASA CLASS II 03/17/2005 09/23/2016 Abdominal pain, left lower quadrant 11/11/2012 Alternating constipation and diarrhea 07/04/2020 documented as of this encounter (statuses as of 06/18/2022) [facility]13[facility]2021 History of Past illness Narrative* Problem Noted Date Resolved Date 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04/07 Conjunctivitis 11/06/2020 04/24/2021 Pseudophakia, both eyes 07/23/2020 04/24/20 Glaucoma suspect of both eyes 05/01/2020 Narrow angle glaucoma suspect of both eyes 05/0104/24/2021 Pain in right hip 08/05/2017 09/30/2017 Gait disturbance 01/29/2017 06/24/2017 Pulmonary nodule 01/08/2017 09/30/2017 Anticoagulated 11/25/2016 09/30/2017 Pulmonary embolism with acute cor pulmonale 11/0612/29/2017 Overview: Dr. Jaswant Miller, pulmonary. On home oxygen therapy 11/24/2016 7 Medicare annual wellness visit, initial 06/22/20 12 06/24/2017 Foraminal stenosis of cervical region 01/30/2012 06/24/2017 Myofascial pain 01/30/2012 05/20/2016 Lumbar strain 01/30/2012 09/23/2016 Lumbar spondylosis 01/30/2012 06/24/2017 Other disorder of muscle, ligament, and fascia 1 09/09/2010 12/24/2015 Enthesopathy of hip region 07/08/201104/24 Hyperlipemia 06/18/2010 01/08/2017 Dizziness and giddiness 08/27/2009 11/12/19 13 Pain in joint, pelvic region and thigh 8 05/20/2016 Other specified disorders of rotator cuff syndrome of shoulder and allied disorders 04/09/2007 09/23/2016 Bronchiectasis 07/29/2006 11/27/2009 Unspecified asthma(493.90) 03/12/200601/20 NERVE COMPRESSION POSTOPERATIVE 12/19/2005 09/23/2016 Arthropathy, unspecified, site unspecified 10/0712/24/2015 ASA CLASS II 03/17/2005 09/23/2016 Abdominal pain, left lower quadrant 11/11/2012 Alternating constipation and diarrhea 07/04/2020 documented as of this encounter (statuses as of 06/19/2022) [facility]-13[facility]2021 History of Past illness Narrative* Problem Noted Date Resolved Date 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04/07 Conjunctivitis 11/06/2020 04/24/2021 Pseudophakia, both eyes 07/23/2020 04/24/20 Glaucoma suspect of both eyes 05/01/2020 Narrow angle glaucoma suspect of both eyes 05/0104/24/2021 Pain in right hip 08/05/2017 09/30/2017 Gait disturbance 01/29/2017 06/24/2017 Pulmonary nodule 01/08/2017 09/30/2017 Anticoagulated 11/25/2016 09/30/2017 Pulmonary embolism with acute cor pulmonale 11/0612/29/2017 Overview: Dr. Jaswant Miller, pulmonary. On home oxygen therapy 11/24/2016 7 Medicare annual wellness visit, initial 06/22/20 12 06/24/2017 Foraminal stenosis of cervical region 01/30/2012 06/24/2017 Myofascial pain 01/30/2012 05/20/2016 Lumbar strain 01/30/2012 09/23/2016 Lumbar spondylosis 01/30/2012 06/24/2017 Other disorder of muscle, ligament, and fascia 1 09/09/2010 12/24/2015 Enthesopathy of hip region 07/08/201104/24 Hyperlipemia 06/18/2010 01/08/2017 Dizziness and giddiness 08/27/2009 11/12/19 13 Pain in joint, pelvic region and thigh 8 05/20/2016 Other specified disorders of rotator cuff syndrome of shoulder and allied disorders 04/09/2007 09/23/2016 Bronchiectasis 07/29/2006 11/27/2009 Unspecified asthma(493.90) 03/12/200601/20 NERVE COMPRESSION POSTOPERATIVE 12/19/2005 09/23/2016 Arthropathy, unspecified, site unspecified 10/0712/24/2015 ASA CLASS II 03/17/2005 09/23/2016 Abdominal pain, left lower quadrant 11/11/2012 Alternating constipation and diarrhea 07/04/2020 documented as of this encounter (statuses as of 06/23/2022) [facility]-13-2021 History of Past illness Narrative* Problem Noted Date Resolved Date 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04/07 Conjunctivitis 11/06/2020 04/24/2021 Pseudophakia, both eyes 07/23/2020 04/24/20 21 Glaucoma suspect of both eyes 05/01/2020 Narrow angle glaucoma suspect of both eyes 05/0104/24/2021 Pain in right hip 08/05/2017 09/30/2017 Gait disturbance 01/29/2017 06/24/2017 Pulmonary nodule 01/08/2017 09/30/2017 Anticoagulated 11/25/2016 09/30/2017 Pulmonary embolism with acute cor pulmonale 11/0612/29/2017 Overview: Dr. Jaswant Miller, pulmonary. On home oxygen therapy 11/24/2016 7 Medicare annual wellness visit, initial 06/22/20 12 06/24/2017 Foraminal stenosis of cervical region 01/30/2012 06/24/2017 Myofascial pain 01/30/2012 05/20/2016 Lumbar strain 01/30/2012 09/23/2016 Lumbar spondylosis 01/30/2012 06/24/2017 Other disorder of muscle, ligament, and fascia 1 09/09/2010 12/24/2015 Enthesopathy of hip region 07/08/201104/24 Hyperlipemia 06/18/2010 01/08/2017 Dizziness and giddiness 08/27/2009 11/12/19 13 Pain in joint, pelvic region and thigh 8 05/20/2016 Other specified disorders of rotator cuff syndrome of shoulder and allied disorders 04/09/2007 09/23/2016 Bronchiectasis 07/29/2006 11/27/2009 Unspecified asthma(493.90) 03/12/200601/20 NERVE COMPRESSION POSTOPERATIVE 12/19/2005 09/23/2016 Arthropathy, unspecified, site unspecified 10/0712/24/2015 ASA CLASS II 03/17/2005 09/23/2016 Abdominal pain, left lower quadrant 11/11/2012 Alternating constipation and diarrhea 07/04/2020 documented as of this encounter (statuses as of 07/02/2022) [facility]13[facility]2021 History of Past illness Narrative* Problem Noted Date Resolved Date 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04/07 Conjunctivitis 11/06/2020 04/24/2021 Pseudophakia, both eyes 07/23/2020 04/24/20 21 Glaucoma suspect of both eyes 05/01/2020 Narrow angle glaucoma suspect of both eyes 05/0104/24/2021 Pain in right hip 08/05/2017 09/30/2017 Gait disturbance 01/29/2017 06/24/2017 Pulmonary nodule 01/08/2017 09/30/2017 Anticoagulated 11/25/2016 09/30/2017 Pulmonary embolism with acute cor pulmonale 11/0612/29/2017 Overview: Dr. Jaswant Miller, pulmonary. On home oxygen therapy 11/24/2016 7 Medicare annual wellness visit, initial 06/22/20 12 06/24/2017 Foraminal stenosis of cervical region 01/30/2012 06/24/2017 Myofascial pain 01/30/2012 05/20/2016 Lumbar strain 01/30/2012 09/23/2016 Lumbar spondylosis 01/30/2012 06/24/2017 Other disorder of muscle, ligament, and fascia 1 09/09/2010 12/24/2015 Enthesopathy of hip region 07/08/201104/24 Hyperlipemia 06/18/2010 01/08/2017 Dizziness and giddiness 08/27/2009 11/12/19 13 Pain in joint, pelvic region and thigh 8 05/20/2016 Other specified disorders of rotator cuff syndrome of shoulder and allied disorders 04/09/2007 09/23/2016 Bronchiectasis 07/29/2006 11/27/2009 Unspecified asthma(493.90) 03/12/200601/20 NERVE COMPRESSION POSTOPERATIVE 12/19/2005 09/23/2016 Arthropathy, unspecified, site unspecified 10/0712/24/2015 ASA CLASS II 03/17/2005 09/23/2016 Abdominal pain, left lower quadrant 11/11/2012 Alternating constipation and diarrhea 07/04/2020 documented as of this encounter (statuses as of 07/03/2022) [facility]13[facility]2021 History of Past illness Narrative* Problem Noted Date Resolved Date 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04/07 Conjunctivitis 11/06/2020 04/24/2021 Pseudophakia, both eyes 07/23/2020 04/24/20 Glaucoma suspect of both eyes 05/01/2020 Narrow angle glaucoma suspect of both eyes 05/0104/24/2021 Pain in right hip 08/05/2017 09/30/2017 Gait disturbance 01/29/2017 06/24/2017 Pulmonary nodule 01/08/2017 09/30/2017 Anticoagulated 11/25/2016 09/30/2017 Pulmonary embolism with acute cor pulmonale 11/0612/29/2017 Overview: Dr. Jaswant Miller, pulmonary. On home oxygen therapy 11/24/2016 7 Medicare annual wellness visit, initial 06/22/20 12 06/24/2017 Foraminal stenosis of cervical region 01/30/2012 06/24/2017 Myofascial pain 01/30/2012 05/20/2016 Lumbar strain 01/30/2012 09/23/2016 Lumbar spondylosis 01/30/2012 06/24/2017 Other disorder of muscle, ligament, and fascia 1 09/09/2010 12/24/2015 Enthesopathy of hip region 07/08/201104/24 Hyperlipemia 06/18/2010 01/08/2017 Dizziness and giddiness 08/27/2009 11/12/19 13 Pain in joint, pelvic region and thigh 8 05/20/2016 Other specified disorders of rotator cuff syndrome of shoulder and allied disorders 04/09/2007 09/23/2016 Bronchiectasis 07/29/2006 11/27/2009 Unspecified asthma(493.90) 03/12/200601/20 NERVE COMPRESSION POSTOPERATIVE 12/19/2005 09/23/2016 Arthropathy, unspecified, site unspecified 10/0712/24/2015 ASA CLASS II 03/17/2005 09/23/2016 Abdominal pain, left lower quadrant 11/11/2012 Alternating constipation and diarrhea 07/04/2020 documented as of this encounter (statuses as of 07/05/2022) [facility]13[facility]2021 History of Past illness Narrative* Problem Noted Date Resolved Date 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04/07 Conjunctivitis 11/06/2020 04/24/2021 Pseudophakia, both eyes 07/23/2020 04/24/20 21 Glaucoma suspect of both eyes 05/01/2020 Narrow angle glaucoma suspect of both eyes 05/0104/24/2021 Pain in right hip 08/05/2017 09/30/2017 Gait disturbance 01/29/2017 06/24/2017 Pulmonary nodule 01/08/2017 09/30/2017 Anticoagulated 11/25/2016 09/30/2017 Pulmonary embolism with acute cor pulmonale 11/0612/29/2017 Overview: Dr. Jaswant Miller, pulmonary. On home oxygen therapy 11/24/2016 7 Medicare annual wellness visit, initial 06/22/20 12 06/24/2017 Foraminal stenosis of cervical region 01/30/2012 06/24/2017 Myofascial pain 01/30/2012 05/20/2016 Lumbar strain 01/30/2012 09/23/2016 Lumbar spondylosis 01/30/2012 06/24/2017 Other disorder of muscle, ligament, and fascia 1 09/09/2010 12/24/2015 Enthesopathy of hip region 07/08/201104/24 Hyperlipemia 06/18/2010 01/08/2017 Dizziness and giddiness 08/27/2009 11/12/19 13 Pain in joint, pelvic region and thigh 8 05/20/2016 Other specified disorders of rotator cuff syndrome of shoulder and allied disorders 04/09/2007 09/23/2016 Bronchiectasis 07/29/2006 11/27/2009 Unspecified asthma(493.90) 03/12/200601/20 NERVE COMPRESSION POSTOPERATIVE 12/19/2005 09/23/2016 Arthropathy, unspecified, site unspecified 10/0712/24/2015 ASA CLASS II 03/17/2005 09/23/2016 Abdominal pain, left lower quadrant 11/11/2012 Alternating constipation and diarrhea 07/04/2020 documented as of this encounter (statuses as of 07/16/2022) [facility]13[facility]2021 History of Past illness Narrative* Problem Noted Date Resolved Date 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04/07 Conjunctivitis 11/06/2020 04/24/2021 Pseudophakia, both eyes 07/23/2020 04/24/20 21 Glaucoma suspect of both eyes 05/01/2020 Narrow angle glaucoma suspect of both eyes 05/0104/24/2021 Pain in right hip 08/05/2017 09/30/2017 Gait disturbance 01/29/2017 06/24/2017 Pulmonary nodule 01/08/2017 09/30/2017 Anticoagulated 11/25/2016 09/30/2017 Pulmonary embolism with acute cor pulmonale 11/0612/29/2017 Overview: Dr. Jaswant Miller, pulmonary. On home oxygen therapy 11/24/2016 7 Medicare annual wellness visit, initial 06/22/20 12 06/24/2017 Foraminal stenosis of cervical region 01/30/2012 06/24/2017 Myofascial pain 01/30/2012 05/20/2016 Lumbar strain 01/30/2012 09/23/2016 Lumbar spondylosis 01/30/2012 06/24/2017 Other disorder of muscle, ligament, and fascia 1 09/09/2010 12/24/2015 Enthesopathy of hip region 07/08/201104/24 Hyperlipemia 06/18/2010 01/08/2017 Dizziness and giddiness 08/27/2009 11/12/19 13 Pain in joint, pelvic region and thigh 8 05/20/2016 Other specified disorders of rotator cuff syndrome of shoulder and allied disorders 04/09/2007 09/23/2016 Bronchiectasis 07/29/2006 11/27/2009 Unspecified asthma(493.90) 03/12/200601/20 NERVE COMPRESSION POSTOPERATIVE 12/19/2005 09/23/2016 Arthropathy, unspecified, site unspecified 10/0712/24/2015 ASA CLASS II 03/17/2005 09/23/2016 Abdominal pain, left lower quadrant 11/11/2012 Alternating constipation and diarrhea 07/04/2020 documented as of this encounter (statuses as of 07/21/2022) [facility]2021 History of Past illness Narrative* Problem Noted Date Resolved Date 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04/07 Bradycardia 01/18/2021 08/01/2022 Conjunctivitis 11/06/2020 04/24/2021 Pseudophakia, both eyes 07/23/2020 04/24/20 21 Glaucoma suspect of both eyes 05/01/2020 Narrow angle glaucoma suspect of both eyes 05/0104/24/2021 Pain in right hip 08/05/2017 09/30/2017 Gait disturbance 01/29/2017 06/24/2017 Pulmonary nodule 01/08/2017 09/30/2017 Anticoagulated 11/25/2016 09/30/2017 Pulmonary embolism with acute cor pulmonale 11/0612/29/2017 Overview: Dr. Jaswant Miller, pulmonary. On home oxygen therapy 11/24/2016 7 Medicare annual wellness visit, initial 06/22/20 12 06/24/2017 Foraminal stenosis of cervical region 01/30/2012 06/24/2017 Myofascial pain 01/30/2012 05/20/2016 Lumbar strain 01/30/2012 09/23/2016 Lumbar spondylosis 01/30/2012 06/24/2017 Other disorder of muscle, ligament, and fascia 1 09/09/2010 12/24/2015 Enthesopathy of hip region 07/08/201104/24 Hyperlipemia 06/18/2010 01/08/2017 Dizziness and giddiness 08/27/2009 11/12/19 13 Pain in joint, pelvic region and thigh 8 05/20/2016 Other specified disorders of rotator cuff syndrome of shoulder and allied disorders 04/09/2007 09/23/2016 Bronchiectasis 07/29/2006 11/27/2009 Unspecified asthma(493.90) 03/12/200601/20 NERVE COMPRESSION POSTOPERATIVE 12/19/2005 09/23/2016 Arthropathy, unspecified, site unspecified 10/0712/24/2015 ASA CLASS II 03/17/2005 09/23/2016 Abdominal pain, left lower quadrant 11/11/2012 Alternating constipation and diarrhea 07/04/2020 documented as of this encounter (statuses as of 08/01/2022) [facility]2021 History of Past illness Narrative* Problem Noted Date Resolved Date 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04/07 Bradycardia 01/18/2021 08/01/2022 Conjunctivitis 11/06/2020 04/24/2021 Pseudophakia, both eyes 07/23/2020 04/24/20 21 Glaucoma suspect of both eyes 05/01/2020 Narrow angle glaucoma suspect of both eyes 05/0104/24/2021 Pain in right hip 08/05/2017 09/30/2017 Gait disturbance 01/29/2017 06/24/2017 Pulmonary nodule 01/08/2017 09/30/2017 Anticoagulated 11/25/2016 09/30/2017 Pulmonary embolism with acute cor pulmonale 11/0612/29/2017 Overview: Dr. Jaswant Miller, pulmonary. On home oxygen therapy 11/24/2016 7 Medicare annual wellness visit, initial 06/22/20 12 06/24/2017 Foraminal stenosis of cervical region 01/30/2012 06/24/2017 Myofascial pain 01/30/2012 05/20/2016 Lumbar strain 01/30/2012 09/23/2016 Lumbar spondylosis 01/30/2012 06/24/2017 Other disorder of muscle, ligament, and fascia 1 09/09/2010 12/24/2015 Enthesopathy of hip region 07/08/201104/24 Hyperlipemia 06/18/2010 01/08/2017 Dizziness and giddiness 08/27/2009 11/12/19 13 Pain in joint, pelvic region and thigh 8 05/20/2016 Other specified disorders of rotator cuff syndrome of shoulder and allied disorders 04/09/2007 09/23/2016 Bronchiectasis 07/29/2006 11/27/2009 Unspecified asthma(493.90) 03/12/200601/20 NERVE COMPRESSION POSTOPERATIVE 12/19/2005 09/23/2016 Arthropathy, unspecified, site unspecified 10/0712/24/2015 ASA CLASS II 03/17/2005 09/23/2016 Abdominal pain, left lower quadrant 11/11/2012 Alternating constipation and diarrhea 07/04/2020 documented as of this encounter (statuses as of 09/17/2022) [facility]2021 History of Past illness Narrative* Problem Noted Date Resolved Date 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04/07 Bradycardia 01/18/2021 08/01/2022 Conjunctivitis 11/06/2020 04/24/2021 Pseudophakia, both eyes 07/23/2020 04/24/20 21 Glaucoma suspect of both eyes 05/01/2020 Narrow angle glaucoma suspect of both eyes 05/0104/24/2021 Pain in right hip 08/05/2017 09/30/2017 Gait disturbance 01/29/2017 06/24/2017 Pulmonary nodule 01/08/2017 09/30/2017 Anticoagulated 11/25/2016 09/30/2017 Pulmonary embolism with acute cor pulmonale 11/0612/29/2017 Overview: Dr. Jaswant Miller, pulmonary. On home oxygen therapy 11/24/2016 7 Medicare annual wellness visit, initial 06/22/20 12 06/24/2017 Foraminal stenosis of cervical region 01/30/2012 06/24/2017 Myofascial pain 01/30/2012 05/20/2016 Lumbar strain 01/30/2012 09/23/2016 Lumbar spondylosis 01/30/2012 06/24/2017 Other disorder of muscle, ligament, and fascia 1 09/09/2010 12/24/2015 Enthesopathy of hip region 07/08/201104/24 Hyperlipemia 06/18/2010 01/08/2017 Dizziness and giddiness 08/27/2009 11/12/19 13 Pain in joint, pelvic region and thigh 8 05/20/2016 Other specified disorders of rotator cuff syndrome of shoulder and allied disorders 04/09/2007 09/23/2016 Bronchiectasis 07/29/2006 11/27/2009 Unspecified asthma(493.90) 03/12/200601/20 NERVE COMPRESSION POSTOPERATIVE 12/19/2005 09/23/2016 Arthropathy, unspecified, site unspecified 10/0712/24/2015 ASA CLASS II 03/17/2005 09/23/2016 Abdominal pain, left lower quadrant 11/11/2012 Alternating constipation and diarrhea 07/04/2020 documented as of this encounter (statuses as of 10/31/2022) [facility]21 History of Past illness Narrative* Problem Noted Date Resolved Date 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04/07 Bradycardia 01/18/2021 08/01/2022 Conjunctivitis 11/06/2020 04/24/2021 Pseudophakia, both eyes 07/23/2020 04/24/20 21 Glaucoma suspect of both eyes 05/01/2020 Narrow angle glaucoma suspect of both eyes 05/0104/24/2021 Pain in right hip 08/05/2017 09/30/2017 Gait disturbance 01/29/2017 06/24/2017 Pulmonary nodule 01/08/2017 09/30/2017 Anticoagulated 11/25/2016 09/30/2017 Pulmonary embolism with acute cor pulmonale 11/0612/29/2017 Overview: Dr. Jaswant Miller, pulmonary. On home oxygen therapy 11/24/2016 7 Medicare annual wellness visit, initial 06/22/20 12 06/24/2017 Foraminal stenosis of cervical region 01/30/2012 06/24/2017 Myofascial pain 01/30/2012 05/20/2016 Lumbar strain 01/30/2012 09/23/2016 Lumbar spondylosis 01/30/2012 06/24/2017 Other disorder of muscle, ligament, and fascia 1 09/09/2010 12/24/2015 Enthesopathy of hip region 07/08/201104/24 Hyperlipemia 06/18/2010 01/08/2017 Dizziness and giddiness 08/27/2009 11/12/19 13 Pain in joint, pelvic region and thigh 8 05/20/2016 Other specified disorders of rotator cuff syndrome of shoulder and allied disorders 04/09/2007 09/23/2016 Bronchiectasis 07/29/2006 11/27/2009 Unspecified asthma(493.90) 03/12/200601/20 NERVE COMPRESSION POSTOPERATIVE 12/19/2005 09/23/2016 Arthropathy, unspecified, site unspecified 10/0712/24/2015 ASA CLASS II 03/17/2005 09/23/2016 Abdominal pain, left lower quadrant 11/11/2012 Alternating constipation and diarrhea 07/04/2020 documented as of this encounter (statuses as of 11/01/2022) [facility]21 History of Past illness Narrative* Problem Noted Date Resolved Date 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04/07 Bradycardia 01/18/2021 08/01/2022 Conjunctivitis 11/06/2020 04/24/2021 Pseudophakia, both eyes 07/23/2020 04/24/20 21 Glaucoma suspect of both eyes 05/01/2020 Narrow angle glaucoma suspect of both eyes 05/0104/24/2021 Pain in right hip 08/05/2017 09/30/2017 Gait disturbance 01/29/2017 06/24/2017 Pulmonary nodule 01/08/2017 09/30/2017 Anticoagulated 11/25/2016 09/30/2017 Pulmonary embolism with acute cor pulmonale 11/0612/29/2017 Overview: Dr. Jaswant Miller, pulmonary. On home oxygen therapy 11/24/2016 7 Medicare annual wellness visit, initial 06/22/20 12 06/24/2017 Foraminal stenosis of cervical region 01/30/2012 06/24/2017 Myofascial pain 01/30/2012 05/20/2016 Lumbar strain 01/30/2012 09/23/2016 Lumbar spondylosis 01/30/2012 06/24/2017 Other disorder of muscle, ligament, and fascia 1 09/09/2010 12/24/2015 Enthesopathy of hip region 07/08/201104/24 Hyperlipemia 06/18/2010 01/08/2017 Dizziness and giddiness 08/27/2009 11/12/19 13 Pain in joint, pelvic region and thigh 8 05/20/2016 Other specified disorders of rotator cuff syndrome of shoulder and allied disorders 04/09/2007 09/23/2016 Bronchiectasis 07/29/2006 11/27/2009 Unspecified asthma(493.90) 03/12/200601/20 NERVE COMPRESSION POSTOPERATIVE 12/19/2005 09/23/2016 Arthropathy, unspecified, site unspecified 10/0712/24/2015 ASA CLASS II 03/17/2005 09/23/2016 Abdominal pain, left lower quadrant 11/11/2012 Alternating constipation and diarrhea 07/04/2020 documented as of this encounter (statuses as of 11/17/2022) [facility]21 History of Past illness Narrative* Problem Noted Date Resolved Date 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04/07 Bradycardia 01/18/2021 08/01/2022 Conjunctivitis 11/06/2020 04/24/2021 Pseudophakia, both eyes 07/23/2020 04/24/20 21 Glaucoma suspect of both eyes 05/01/2020 Narrow angle glaucoma suspect of both eyes 05/0104/24/2021 Pain in right hip 08/05/2017 09/30/2017 Gait disturbance 01/29/2017 06/24/2017 Pulmonary nodule 01/08/2017 09/30/2017 Anticoagulated 11/25/2016 09/30/2017 Pulmonary embolism with acute cor pulmonale 11/0612/29/2017 Overview: Dr. Jaswant Miller, pulmonary. On home oxygen therapy 11/24/2016 7 Medicare annual wellness visit, initial 06/22/20 12 06/24/2017 Foraminal stenosis of cervical region 01/30/2012 06/24/2017 Myofascial pain 01/30/2012 05/20/2016 Lumbar strain 01/30/2012 09/23/2016 Lumbar spondylosis 01/30/2012 06/24/2017 Other disorder of muscle, ligament, and fascia 1 09/09/2010 12/24/2015 Enthesopathy of hip region 07/08/201104/24 Hyperlipemia 06/18/2010 01/08/2017 Dizziness and giddiness 08/27/2009 11/12/19 13 Pain in joint, pelvic region and thigh 8 05/20/2016 Other specified disorders of rotator cuff syndrome of shoulder and allied disorders 04/09/2007 09/23/2016 Bronchiectasis 07/29/2006 11/27/2009 Unspecified asthma(493.90) 03/12/200601/20 NERVE COMPRESSION POSTOPERATIVE 12/19/2005 09/23/2016 Arthropathy, unspecified, site unspecified 10/0712/24/2015 ASA CLASS II 03/17/2005 09/23/2016 Abdominal pain, left lower quadrant 11/11/2012 Alternating constipation and diarrhea 07/04/2020 documented as of this encounter (statuses as of 12/08/2022) [facility]08-13-2021 History of Past illness Narrative* Problem Noted Date Resolved Date 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04/07 Bradycardia 01/18/2021 08/01/2022 Conjunctivitis 11/06/2020 04/24/2021 Pseudophakia, both eyes 07/23/2020 04/24/20 Glaucoma suspect of both eyes 05/01/2020 Narrow angle glaucoma suspect of both eyes 05/0104/24/2021 Pain in right hip 08/05/2017 09/30/2017 Gait disturbance 01/29/2017 06/24/2017 Pulmonary nodule 01/08/2017 09/30/2017 Anticoagulated 11/25/2016 09/30/2017 Pulmonary embolism with acute cor pulmonale 11/0612/29/2017 Overview: Dr. Jaswant Miller, pulmonary. On home oxygen therapy 11/24/2016 7 Medicare annual wellness visit, initial 06/22/20 12 06/24/2017 Foraminal stenosis of cervical region 01/30/2012 06/24/2017 Myofascial pain 01/30/2012 05/20/2016 Lumbar strain 01/30/2012 09/23/2016 Lumbar spondylosis 01/30/2012 06/24/2017 Other disorder of muscle, ligament, and fascia 1 09/09/2010 12/24/2015 Enthesopathy of hip region 07/08/201104/24 Hyperlipemia 06/18/2010 01/08/2017 Dizziness and giddiness 08/27/2009 11/12/19 13 Pain in joint, pelvic region and thigh 8 05/20/2016 Other specified disorders of rotator cuff syndrome of shoulder and allied disorders 04/09/2007 09/23/2016 Bronchiectasis 07/29/2006 11/27/2009 Unspecified asthma(493.90) 03/12/200601/20 NERVE COMPRESSION POSTOPERATIVE 12/19/2005 09/23/2016 Arthropathy, unspecified, site unspecified 10/0712/24/2015 ASA CLASS II 03/17/2005 09/23/2016 Abdominal pain, left lower quadrant 11/11/2012 Alternating constipation and diarrhea 07/04/2020 documented as of this encounter (statuses as of 12/08/2022) [facility]-13-2021 History of Past illness Narrative* Problem Noted Date Resolved Date 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04/07 Bradycardia 01/18/2021 08/01/2022 Conjunctivitis 11/06/2020 04/24/2021 Pseudophakia, both eyes 07/23/2020 04/24/20 21 Glaucoma suspect of both eyes 05/01/2020 Narrow angle glaucoma suspect of both eyes 05/0104/24/2021 Pain in right hip 08/05/2017 09/30/2017 Gait disturbance 01/29/2017 06/24/2017 Pulmonary nodule 01/08/2017 09/30/2017 Anticoagulated 11/25/2016 09/30/2017 Pulmonary embolism with acute cor pulmonale 11/0612/29/2017 Overview: Dr. Jaswant Miller, pulmonary. On home oxygen therapy 11/24/2016 7 Medicare annual wellness visit, initial 06/22/20 12 06/24/2017 Foraminal stenosis of cervical region 01/30/2012 06/24/2017 Myofascial pain 01/30/2012 05/20/2016 Lumbar strain 01/30/2012 09/23/2016 Lumbar spondylosis 01/30/2012 06/24/2017 Other disorder of muscle, ligament, and fascia 1 09/09/2010 12/24/2015 Enthesopathy of hip region 07/08/201104/24 Hyperlipemia 06/18/2010 01/08/2017 Dizziness and giddiness 08/27/2009 11/12/19 13 Pain in joint, pelvic region and thigh 8 05/20/2016 Other specified disorders of rotator cuff syndrome of shoulder and allied disorders 04/09/2007 09/23/2016 Bronchiectasis 07/29/2006 11/27/2009 Unspecified asthma(493.90) 03/12/200601/20 NERVE COMPRESSION POSTOPERATIVE 12/19/2005 09/23/2016 Arthropathy, unspecified, site unspecified 10/0712/24/2015 ASA CLASS II 03/17/2005 09/23/2016 Abdominal pain, left lower quadrant 11/11/2012 Alternating constipation and diarrhea 07/04/2020 documented as of this encounter (statuses as of 12/10/2022) [facility]-13-2021 History of Past illness Narrative* Problem Noted Date Resolved Date 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04/07 Bradycardia 01/18/2021 08/01/2022 Conjunctivitis 11/06/2020 04/24/2021 Pseudophakia, both eyes 07/23/2020 04/24/20 21 Glaucoma suspect of both eyes 05/01/2020 Narrow angle glaucoma suspect of both eyes 05/0104/24/2021 Pain in right hip 08/05/2017 09/30/2017 Gait disturbance 01/29/2017 06/24/2017 Pulmonary nodule 01/08/2017 09/30/2017 Anticoagulated 11/25/2016 09/30/2017 Pulmonary embolism with acute cor pulmonale 11/0612/29/2017 Overview: Dr. Jaswant Miller, pulmonary. On home oxygen therapy 11/24/2016 7 Medicare annual wellness visit, initial 06/22/20 12 06/24/2017 Foraminal stenosis of cervical region 01/30/2012 06/24/2017 Myofascial pain 01/30/2012 05/20/2016 Lumbar strain 01/30/2012 09/23/2016 Lumbar spondylosis 01/30/2012 06/24/2017 Other disorder of muscle, ligament, and fascia 1 09/09/2010 12/24/2015 Enthesopathy of hip region 07/08/201104/24 Hyperlipemia 06/18/2010 01/08/2017 Dizziness and giddiness 08/27/2009 11/12/19 13 Pain in joint, pelvic region and thigh 8 05/20/2016 Other specified disorders of rotator cuff syndrome of shoulder and allied disorders 04/09/2007 09/23/2016 Bronchiectasis 07/29/2006 11/27/2009 Unspecified asthma(493.90) 03/12/200601/20 NERVE COMPRESSION POSTOPERATIVE 12/19/2005 09/23/2016 Arthropathy, unspecified, site unspecified 10/0712/24/2015 ASA CLASS II 03/17/2005 09/23/2016 Abdominal pain, left lower quadrant 11/11/2012 Alternating constipation and diarrhea 07/04/2020 documented as of this encounter (statuses as of 12/31/2022) [facility]-13-2021 History of Past illness Narrative* Problem Noted Date Resolved Date 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04/07 Bradycardia 01/18/2021 08/01/2022 Conjunctivitis 11/06/2020 04/24/2021 Pseudophakia, both eyes 07/23/2020 04/24/20 21 Glaucoma suspect of both eyes 05/01/2020 Narrow angle glaucoma suspect of both eyes 05/0104/24/2021 Pain in right hip 08/05/2017 09/30/2017 Gait disturbance 01/29/2017 06/24/2017 Pulmonary nodule 01/08/2017 09/30/2017 Anticoagulated 11/25/2016 09/30/2017 Pulmonary embolism with acute cor pulmonale 11/0612/29/2017 Overview: Dr. Jaswant Miller, pulmonary. On home oxygen therapy 11/24/2016 7 Medicare annual wellness visit, initial 06/22/20 12 06/24/2017 Foraminal stenosis of cervical region 01/30/2012 06/24/2017 Myofascial pain 01/30/2012 05/20/2016 Lumbar strain 01/30/2012 09/23/2016 Lumbar spondylosis 01/30/2012 06/24/2017 Other disorder of muscle, ligament, and fascia 1 09/09/2010 12/24/2015 Enthesopathy of hip region 07/08/201104/24 Hyperlipemia 06/18/2010 01/08/2017 Dizziness and giddiness 08/27/2009 11/12/19 13 Pain in joint, pelvic region and thigh 8 05/20/2016 Other specified disorders of rotator cuff syndrome of shoulder and allied disorders 04/09/2007 09/23/2016 Bronchiectasis 07/29/2006 11/27/2009 Unspecified asthma(493.90) 03/12/200601/20 NERVE COMPRESSION POSTOPERATIVE 12/19/2005 09/23/2016 Arthropathy, unspecified, site unspecified 10/0712/24/2015 ASA CLASS II 03/17/2005 09/23/2016 Abdominal pain, left lower quadrant 11/11/2012 Alternating constipation and diarrhea 07/04/2020 documented as of this encounter (statuses as of 12/31/2022) [facility]-13-2021 History of Past illness Narrative* Problem Noted Date Resolved Date 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04/07 Bradycardia 01/18/2021 08/01/2022 Conjunctivitis 11/06/2020 04/24/2021 Pseudophakia, both eyes 07/23/2020 04/24/20 Glaucoma suspect of both eyes 05/01/2020 Narrow angle glaucoma suspect of both eyes 05/0104/24/2021 Pain in right hip 08/05/2017 09/30/2017 Gait disturbance 01/29/2017 06/24/2017 Pulmonary nodule 01/08/2017 09/30/2017 Anticoagulated 11/25/2016 09/30/2017 Pulmonary embolism with acute cor pulmonale 11/0612/29/2017 Overview: Dr. Jaswant Miller, pulmonary. On home oxygen therapy 11/24/2016 7 Medicare annual wellness visit, initial 06/22/20 12 06/24/2017 Foraminal stenosis of cervical region 01/30/2012 06/24/2017 Myofascial pain 01/30/2012 05/20/2016 Lumbar strain 01/30/2012 09/23/2016 Lumbar spondylosis 01/30/2012 06/24/2017 Other disorder of muscle, ligament, and fascia 1 09/09/2010 12/24/2015 Enthesopathy of hip region 07/08/201104/24 Hyperlipemia 06/18/2010 01/08/2017 Dizziness and giddiness 08/27/2009 11/12/19 13 Pain in joint, pelvic region and thigh 8 05/20/2016 Other specified disorders of rotator cuff syndrome of shoulder and allied disorders 04/09/2007 09/23/2016 Bronchiectasis 07/29/2006 11/27/2009 Unspecified asthma(493.90) 03/12/200601/20 NERVE COMPRESSION POSTOPERATIVE 12/19/2005 09/23/2016 Arthropathy, unspecified, site unspecified 10/0712/24/2015 ASA CLASS II 03/17/2005 09/23/2016 Abdominal pain, left lower quadrant 11/11/2012 Alternating constipation and diarrhea 07/04/2020 documented as of this encounter (statuses as of 01/10/2023) [facility]-13[facility]2021 History of Past illness Narrative* Problem Noted Date Resolved Date 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04/07 Bradycardia 01/18/2021 08/01/2022 Conjunctivitis 11/06/2020 04/24/2021 Pseudophakia, both eyes 07/23/2020 04/24/20 21 Glaucoma suspect of both eyes 05/01/2020 Narrow angle glaucoma suspect of both eyes 05/0104/24/2021 Pain in right hip 08/05/2017 09/30/2017 Gait disturbance 01/29/2017 06/24/2017 Pulmonary nodule 01/08/2017 09/30/2017 Anticoagulated 11/25/2016 09/30/2017 Pulmonary embolism with acute cor pulmonale 11/0612/29/2017 Overview: Dr. Jaswant Miller, pulmonary. On home oxygen therapy 11/24/2016 7 Medicare annual wellness visit, initial 06/22/20 12 06/24/2017 Foraminal stenosis of cervical region 01/30/2012 06/24/2017 Myofascial pain 01/30/2012 05/20/2016 Lumbar strain 01/30/2012 09/23/2016 Lumbar spondylosis 01/30/2012 06/24/2017 Other disorder of muscle, ligament, and fascia 1 09/09/2010 12/24/2015 Enthesopathy of hip region 07/08/201104/24 Hyperlipemia 06/18/2010 01/08/2017 Dizziness and giddiness 08/27/2009 11/12/19 13 Pain in joint, pelvic region and thigh 8 05/20/2016 Other specified disorders of rotator cuff syndrome of shoulder and allied disorders 04/09/2007 09/23/2016 Bronchiectasis 07/29/2006 11/27/2009 Unspecified asthma(493.90) 03/12/200601/20 NERVE COMPRESSION POSTOPERATIVE 12/19/2005 09/23/2016 Arthropathy, unspecified, site unspecified 10/0712/24/2015 ASA CLASS II 03/17/2005 09/23/2016 Abdominal pain, left lower quadrant 11/11/2012 Alternating constipation and diarrhea 07/04/2020 documented as of this encounter (statuses as of 02/09/2023) [facility]08-13-2021 History of Past illness Narrative* Problem Noted Date Resolved Date 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04/07 Bradycardia 01/18/2021 08/01/2022 Conjunctivitis 11/06/2020 04/24/2021 Pseudophakia, both eyes 07/23/2020 04/24/20 21 Glaucoma suspect of both eyes 05/01/2020 Narrow angle glaucoma suspect of both eyes 05/0104/24/2021 Pain in right hip 08/05/2017 09/30/2017 Gait disturbance 01/29/2017 06/24/2017 Pulmonary nodule 01/08/2017 09/30/2017 Anticoagulated 11/25/2016 09/30/2017 Pulmonary embolism with acute cor pulmonale 11/0612/29/2017 Overview: Dr. Jaswant Miller, pulmonary. On home oxygen therapy 11/24/2016 7 Medicare annual wellness visit, initial 06/22/20 12 06/24/2017 Foraminal stenosis of cervical region 01/30/2012 06/24/2017 Myofascial pain 01/30/2012 05/20/2016 Lumbar strain 01/30/2012 09/23/2016 Lumbar spondylosis 01/30/2012 06/24/2017 Other disorder of muscle, ligament, and fascia 1 09/09/2010 12/24/2015 Enthesopathy of hip region 07/08/201104/24 Hyperlipemia 06/18/2010 01/08/2017 Dizziness and giddiness 08/27/2009 11/12/19 13 Pain in joint, pelvic region and thigh 8 05/20/2016 Other specified disorders of rotator cuff syndrome of shoulder and allied disorders 04/09/2007 09/23/2016 Bronchiectasis 07/29/2006 11/27/2009 Unspecified asthma(493.90) 03/12/200601/20 NERVE COMPRESSION POSTOPERATIVE 12/19/2005 09/23/2016 Arthropathy, unspecified, site unspecified 10/0712/24/2015 ASA CLASS II 03/17/2005 09/23/2016 Abdominal pain, left lower quadrant 11/11/2012 Alternating constipation and diarrhea 07/04/2020 documented as of this encounter (statuses as of 02/17/2023) [facility]08-13-2021 History of Past illness Narrative* Problem Noted Date Resolved Date 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04/07 Bradycardia 01/18/2021 08/01/2022 Conjunctivitis 11/06/2020 04/24/2021 Pseudophakia, both eyes 07/23/2020 04/24/20 21 Glaucoma suspect of both eyes 05/01/2020 Narrow angle glaucoma suspect of both eyes 05/0104/24/2021 Pain in right hip 08/05/2017 09/30/2017 Gait disturbance 01/29/2017 06/24/2017 Pulmonary nodule 01/08/2017 09/30/2017 Anticoagulated 11/25/2016 09/30/2017 Pulmonary embolism with acute cor pulmonale 11/0612/29/2017 Overview: Dr. Jaswant Miller, pulmonary. On home oxygen therapy 11/24/2016 7 Medicare annual wellness visit, initial 06/22/20 12 06/24/2017 Foraminal stenosis of cervical region 01/30/2012 06/24/2017 Myofascial pain 01/30/2012 05/20/2016 Lumbar strain 01/30/2012 09/23/2016 Lumbar spondylosis 01/30/2012 06/24/2017 Other disorder of muscle, ligament, and fascia 1 09/09/2010 12/24/2015 Enthesopathy of hip region 07/08/201104/24 Hyperlipemia 06/18/2010 01/08/2017 Dizziness and giddiness 08/27/2009 11/12/19 13 Pain in joint, pelvic region and thigh 8 05/20/2016 Other specified disorders of rotator cuff syndrome of shoulder and allied disorders 04/09/2007 09/23/2016 Bronchiectasis 07/29/2006 11/27/2009 Unspecified asthma(493.90) 03/12/200601/20 NERVE COMPRESSION POSTOPERATIVE 12/19/2005 09/23/2016 Arthropathy, unspecified, site unspecified 10/0712/24/2015 ASA CLASS II 03/17/2005 09/23/2016 Abdominal pain, left lower quadrant 11/11/2012 Alternating constipation and diarrhea 07/04/2020 documented as of this encounter (statuses as of 03/11/2023) [facility]08-13-2021 History of Past illness Narrative* Problem Noted Date Diagnosed Date Resolved Date 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 04/24/2021 Bradycardia 01/18/2021 08/01/2022 Conjunctivitis 11/06/2020 04/24/2021 Pseudophakia, both eyes 07/23/202004/07 Glaucoma suspect of both eyes 05/01/2020 04/24/2021 Narrow angle glaucoma suspect of both eyes 05/01/2020 04/24/2021 Pain in right hip 08/05/2017 09/30/2017 Gait disturbance 01/29/2017 06/24/2017 Pulmonary nodule 01/08/2017 09/30/2017 Anticoagulated 11/25/2016 09/30/2017 Pulmonary embolism with acute cor pulmonale 11/24/2016 12/29/2017 Overview: Dr. Jaswant Miller, pulmonary. On home oxygen therapy 11/24/201606/24 Medicare annual wellness visit, initial 06/22/2012 06/24/2017 Foraminal stenosis of cervical region 01/30/2012 06/24/2017 Myofascial pain 01/30/2012 05/20/2016 Lumbar strain 01/30/2012 09/23/2016 Lumbar spondylosis 01/30/2012 7 Other disorder of muscle, li gament, and fascia 07/10/2011 12/24/2015 Enthesopathy of hip region 07/08/2011 0 04/24/2021 Hyperlipemia 06/18/2010 01/08/2017 Dizziness and giddiness 08/27/2009 03/0 03/2013 Pain in joint, pelvic region and thigh 12/13/2007 05/20/2016 Other specified disorders of rotator cuff syndrome of shoulder and allied disorders 04/09/2007 09/23/2016 Bronchiectasis 07/29/2006 11/27/2009 Unspecified asthma(493.90) 03/12/2006 0 01/20/2010 NERVE COMPRESSION POSTOPERATIVE 12/19/2005 09/23/2016 Arthropathy, unspecified, site unspecified 10/07/2005 12/24/2015 ASA CLASS II 03/17/2005 09/23/2016 Abdominal pain, left lower quadrant 11/11/2012 Alternating constipation and diarrhea 07/04/2020 documented as of this encounter (statuses as of 04/29/2023) [facility]-13-2021 History of Past illness Narrative* Problem Noted Date Diagnosed Date Resolved Date 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 04/24/2021 Bradycardia 01/18/2021 08/01/2022 Conjunctivitis 11/06/2020 04/24/2021 Pseudophakia, both eyes 07/23/202004/07 Glaucoma suspect of both eyes 05/01/2020 04/24/2021 Narrow angle glaucoma suspect of both eyes 05/01/2020 04/24/2021 Pain in right hip 08/05/2017 09/30/2017 Gait disturbance 01/29/2017 06/24/2017 Pulmonary nodule 01/08/2017 09/30/2017 Anticoagulated 11/25/2016 09/30/2017 Pulmonary embolism with acute cor pulmonale 11/24/2016 12/29/2017 Overview: Dr. Jaswant Miller, pulmonary. On home oxygen therapy 11/24/201606/24 Medicare annual wellness visit, initial 06/22/2012 06/24/2017 Foraminal stenosis of cervical region 01/30/2012 06/24/2017 Myofascial pain 01/30/2012 05/20/2016 Lumbar strain 01/30/2012 09/23/2016 Lumbar spondylosis 01/30/2012 7 Other disorder of muscle, li gament, and fascia 07/10/2011 12/24/2015 Enthesopathy of hip region 07/08/2011 0 04/24/2021 Hyperlipemia 06/18/2010 01/08/2017 Dizziness and giddiness 08/27/2009 03/0 03/2013 Pain in joint, pelvic region and thigh 12/13/2007 05/20/2016 Other specified disorders of rotator cuff syndrome of shoulder and allied disorders 04/09/2007 09/23/2016 Bronchiectasis 07/29/2006 11/27/2009 Unspecified asthma(493.90) 03/12/2006 0 01/20/2010 NERVE COMPRESSION POSTOPERATIVE 12/19/2005 09/23/2016 Arthropathy, unspecified, site unspecified 10/07/2005 12/24/2015 ASA CLASS II 03/17/2005 09/23/2016 Abdominal pain, left lower quadrant 11/11/2012 Alternating constipation and diarrhea 07/04/2020 documented as of this encounter (statuses as of 05/21/2023) [facility]-13[facility]2021 History of Past illness Narrative* Problem Noted Date Diagnosed Date Resolved Date 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 04/24/2021 Bradycardia 01/18/2021 08/01/2022 Conjunctivitis 11/06/2020 04/24/2021 Pseudophakia, both eyes 07/23/202004/07 Glaucoma suspect of both eyes 05/01/2020 04/24/2021 Narrow angle glaucoma suspect of both eyes 05/01/2020 04/24/2021 Pain in right hip 08/05/2017 09/30/2017 Gait disturbance 01/29/2017 06/24/2017 Pulmonary nodule 01/08/2017 09/30/2017 Anticoagulated 11/25/2016 09/30/2017 Pulmonary embolism with acute cor pulmonale 11/24/2016 12/29/2017 Overview: Dr. Jaswant Miller, pulmonary. On home oxygen therapy 11/24/201606/24 Medicare annual wellness visit, initial 06/22/2012 06/24/2017 Foraminal stenosis of cervical region 01/30/2012 06/24/2017 Myofascial pain 01/30/2012 05/20/2016 Lumbar strain 01/30/2012 09/23/2016 Lumbar spondylosis 01/30/2012 7 Other disorder of muscle, li gament, and fascia 07/10/2011 12/24/2015 Enthesopathy of hip region 07/08/2011 0 04/24/2021 Hyperlipemia 06/18/2010 01/08/2017 Dizziness and giddiness 08/27/2009 03/0 03/2013 Pain in joint, pelvic region and thigh 12/13/2007 05/20/2016 Other specified disorders of rotator cuff syndrome of shoulder and allied disorders 04/09/2007 09/23/2016 Bronchiectasis 07/29/2006 11/27/2009 Unspecified asthma(493.90) 03/12/2006 0 01/20/2010 NERVE COMPRESSION POSTOPERATIVE 12/19/2005 09/23/2016 Arthropathy, unspecified, site unspecified 10/07/2005 12/24/2015 ASA CLASS II 03/17/2005 09/23/2016 Abdominal pain, left lower quadrant 11/11/2012 Alternating constipation and diarrhea 07/04/2020 documented as of this encounter (statuses as of 07/09/2023) [facility]13[facility]2021 History of Past illness Narrative* Problem Noted Date Diagnosed Date Resolved Date 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 04/24/2021 Bradycardia 01/18/2021 08/01/2022 Conjunctivitis 11/06/2020 04/24/2021 Pseudophakia, both eyes 07/23/202004/07 Glaucoma suspect of both eyes 05/01/2020 04/24/2021 Narrow angle glaucoma suspect of both eyes 05/01/2020 04/24/2021 Pain in right hip 08/05/2017 09/30/2017 Gait disturbance 01/29/2017 06/24/2017 Pulmonary nodule 01/08/2017 09/30/2017 Anticoagulated 11/25/2016 09/30/2017 Pulmonary embolism with acute cor pulmonale 11/24/2016 12/29/2017 Overview: Dr. Jaswant Miller, pulmonary. On home oxygen therapy 11/24/201606/24 Medicare annual wellness visit, initial 06/22/2012 06/24/2017 Foraminal stenosis of cervical region 01/30/2012 06/24/2017 Myofascial pain 01/30/2012 05/20/2016 Lumbar strain 01/30/2012 09/23/2016 Lumbar spondylosis 01/30/2012 7 Other disorder of muscle, li gament, and fascia 07/10/2011 12/24/2015 Enthesopathy of hip region 07/08/2011 0 04/24/2021 Hyperlipemia 06/18/2010 01/08/2017 Dizziness and giddiness 08/27/2009 03/0 03/2013 Pain in joint, pelvic region and thigh 12/13/2007 05/20/2016 Other specified disorders of rotator cuff syndrome of shoulder and allied disorders 04/09/2007 09/23/2016 Bronchiectasis 07/29/2006 11/27/2009 Unspecified asthma(493.90) 03/12/2006 0 01/20/2010 NERVE COMPRESSION POSTOPERATIVE 12/19/2005 09/23/2016 Arthropathy, unspecified, site unspecified 10/07/2005 12/24/2015 ASA CLASS II 03/17/2005 09/23/2016 Abdominal pain, left lower quadrant 11/11/2012 Alternating constipation and diarrhea 07/04/2020 documented as of this encounter (statuses as of 07/11/2023) [facility]2021 History of Past illness Narrative* Problem Noted Date Diagnosed Date Resolved Date 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 04/24/2021 Bradycardia 01/18/2021 08/01/2022 Conjunctivitis 11/06/2020 04/24/2021 Pseudophakia, both eyes 07/23/202004/07 Glaucoma suspect of both eyes 05/01/2020 04/24/2021 Narrow angle glaucoma suspect of both eyes 05/01/2020 04/24/2021 Pain in right hip 08/05/2017 09/30/2017 Gait disturbance 01/29/2017 06/24/2017 Pulmonary nodule 01/08/2017 09/30/2017 Anticoagulated 11/25/2016 09/30/2017 Pulmonary embolism with acute cor pulmonale 11/24/2016 12/29/2017 Overview: Dr. Jaswant Miller, pulmonary. On home oxygen therapy 11/24/201606/24 Medicare annual wellness visit, initial 06/22/2012 06/24/2017 Foraminal stenosis of cervical region 01/30/2012 06/24/2017 Myofascial pain 01/30/2012 05/20/2016 Lumbar strain 01/30/2012 09/23/2016 Lumbar spondylosis 01/30/2012 7 Other disorder of muscle, li gament, and fascia 07/10/2011 12/24/2015 Enthesopathy of hip region 07/08/2011 0 04/24/2021 Hyperlipemia 06/18/2010 01/08/2017 Dizziness and giddiness 08/27/2009 03/0 03/2013 Pain in joint, pelvic region and thigh 12/13/2007 05/20/2016 Other specified disorders of rotator cuff syndrome of shoulder and allied disorders 04/09/2007 09/23/2016 Bronchiectasis 07/29/2006 11/27/2009 Unspecified asthma(493.90) 03/12/2006 0 01/20/2010 NERVE COMPRESSION POSTOPERATIVE 12/19/2005 09/23/2016 Arthropathy, unspecified, site unspecified 10/07/2005 12/24/2015 ASA CLASS II 03/17/2005 09/23/2016 Abdominal pain, left lower quadrant 11/11/2012 Alternating constipation and diarrhea 07/04/2020 documented as of this encounter (statuses as of 08/05/2023) [facility]2021 History of Past illness Narrative* Problem Noted Date Diagnosed Date Resolved Date 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 04/24/2021 Bradycardia 01/18/2021 08/01/2022 Conjunctivitis 11/06/2020 04/24/2021 Pseudophakia, both eyes 07/23/202004/07 Glaucoma suspect of both eyes 05/01/2020 04/24/2021 Narrow angle glaucoma suspect of both eyes 05/01/2020 04/24/2021 Pain in right hip 08/05/2017 09/30/2017 Gait disturbance 01/29/2017 06/24/2017 Pulmonary nodule 01/08/2017 09/30/2017 Anticoagulated 11/25/2016 09/30/2017 Pulmonary embolism with acute cor pulmonale 11/24/2016 12/29/2017 Overview: Dr. Jaswant Miller, pulmonary. On home oxygen therapy 11/24/201606/24 Medicare annual wellness visit, initial 06/22/2012 06/24/2017 Foraminal stenosis of cervical region 01/30/2012 06/24/2017 Myofascial pain 01/30/2012 05/20/2016 Lumbar strain 01/30/2012 09/23/2016 Lumbar spondylosis 01/30/2012 7 Other disorder of muscle, li gament, and fascia 07/10/2011 12/24/2015 Enthesopathy of hip region 07/08/2011 0 04/24/2021 Hyperlipemia 06/18/2010 01/08/2017 Dizziness and giddiness 08/27/2009 03/0 03/2013 Pain in joint, pelvic region and thigh 12/13/2007 05/20/2016 Other specified disorders of rotator cuff syndrome of shoulder and allied disorders 04/09/2007 09/23/2016 Bronchiectasis 07/29/2006 11/27/2009 Unspecified asthma(493.90) 03/12/2006 0 01/20/2010 NERVE COMPRESSION POSTOPERATIVE 12/19/2005 09/23/2016 Arthropathy, unspecified, site unspecified 10/07/2005 12/24/2015 ASA CLASS II 03/17/2005 09/23/2016 Abdominal pain, left lower quadrant 11/11/2012 Alternating constipation and diarrhea 07/04/2020 documented as of this encounter (statuses as of 08/05/2023) [facility]08-13-2021 History of Past illness Narrative* Problem Noted Date Diagnosed Date Resolved Date 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 04/24/2021 Bradycardia 01/18/2021 08/01/2022 Conjunctivitis 11/06/2020 04/24/2021 Pseudophakia, both eyes 07/23/202004/07 Glaucoma suspect of both eyes 05/01/2020 04/24/2021 Narrow angle glaucoma suspect of both eyes 05/01/2020 04/24/2021 Pain in right hip 08/05/2017 09/30/2017 Gait disturbance 01/29/2017 06/24/2017 Pulmonary nodule 01/08/2017 09/30/2017 Anticoagulated 11/25/2016 09/30/2017 Pulmonary embolism with acute cor pulmonale 11/24/2016 12/29/2017 Overview: Dr. Jaswant Miller, pulmonary. On home oxygen therapy 11/24/201606/24 Medicare annual wellness visit, initial 06/22/2012 06/24/2017 Foraminal stenosis of cervical region 01/30/2012 06/24/2017 Myofascial pain 01/30/2012 05/20/2016 Lumbar strain 01/30/2012 09/23/2016 Lumbar spondylosis 01/30/2012 7 Other disorder of muscle, li gament, and fascia 07/10/2011 12/24/2015 Enthesopathy of hip region 07/08/2011 0 04/24/2021 Hyperlipemia 06/18/2010 01/08/2017 Dizziness and giddiness 08/27/2009 03/0 03/2013 Pain in joint, pelvic region and thigh 12/13/2007 05/20/2016 Other specified disorders of rotator cuff syndrome of shoulder and allied disorders 04/09/2007 09/23/2016 Bronchiectasis 07/29/2006 11/27/2009 Unspecified asthma(493.90) 03/12/2006 0 01/20/2010 NERVE COMPRESSION POSTOPERATIVE 12/19/2005 09/23/2016 Arthropathy, unspecified, site unspecified 10/07/2005 12/24/2015 ASA CLASS II 03/17/2005 09/23/2016 Abdominal pain, left lower quadrant 11/11/2012 Alternating constipation and diarrhea 07/04/2020 documented as of this encounter (statuses as of 10/12/2023) [facility]08-13-2021 History of Past illness Narrative* Problem Noted Date Diagnosed Date Resolved Date 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 04/24/2021 Bradycardia 01/18/2021 08/01/2022 Conjunctivitis 11/06/2020 04/24/2021 Pseudophakia, both eyes 07/23/2020 0804/2021 Glaucoma suspect of both eyes 05/01/2020 04/24/2021 Narrow angle glaucoma suspect of both eyes 05/01/2020 04/24/2021 Pain in right hip 08/05/2017 09/30/2017 Gait disturbance 01/29/2017 06/24/2017 Pulmonary nodule 01/08/2017 09/30/2017 Anticoagulated 11/25/2016 09/30/2017 Pulmonary embolism with acute cor pulmonale 11/24/2016 12/29/2017 Overview: Dr. Jaswant Miller, pulmonary. On home oxygen therapy 11/24/201606/24 Medicare annual wellness visit, initial 06/22/2012 06/24/2017 Foraminal stenosis of cervical region 01/30/2012 06/24/2017 Myofascial pain 01/30/2012 05/20/2016 Lumbar strain 01/30/2012 09/23/2016 Lumbar spondylosis 01/30/2012 7 Other disorder of muscle, li gament, and fascia 07/10/2011 12/24/2015 Enthesopathy of hip region 07/08/2011 0 04/24/2021 Hyperlipemia 06/18/2010 01/08/2017 Dizziness and giddiness 08/27/2009 03/0 03/2013 Pain in joint, pelvic region and thigh 12/13/2007 05/20/2016 Other specified disorders of rotator cuff syndrome of shoulder and allied disorders 04/09/2007 09/23/2016 Bronchiectasis 07/29/2006 11/27/2009 Unspecified asthma(493.90) 03/12/2006 0 01/20/2010 NERVE COMPRESSION POSTOPERATIVE 12/19/2005 09/23/2016 Arthropathy, unspecified, site unspecified 10/07/2005 12/24/2015 ASA CLASS II 03/17/2005 09/23/2016 Abdominal pain, left lower quadrant 11/11/2012 Alternating constipation and diarrhea 07/04/2020 documented as of this encounter (statuses as of 10/14/2023) [facility]08-13-2021 History of Past illness Narrative* Problem Noted Date Diagnosed Date Resolved Date 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 04/24/2021 Bradycardia 01/18/2021 08/01/2022 Conjunctivitis 11/06/2020 04/24/2021 Pseudophakia, both eyes 07/23/202004/07 Glaucoma suspect of both eyes 05/01/2020 04/24/2021 Narrow angle glaucoma suspect of both eyes 05/01/2020 04/24/2021 Pain in right hip 08/05/2017 09/30/2017 Gait disturbance 01/29/2017 06/24/2017 Pulmonary nodule 01/08/2017 09/30/2017 Anticoagulated 11/25/2016 09/30/2017 Pulmonary embolism with acute cor pulmonale 11/24/2016 12/29/2017 Overview: Dr. Jaswant Miller, pulmonary. On home oxygen therapy 11/24/201606/24 Medicare annual wellness visit, initial 06/22/2012 06/24/2017 Foraminal stenosis of cervical region 01/30/2012 06/24/2017 Myofascial pain 01/30/2012 05/20/2016 Lumbar strain 01/30/2012 09/23/2016 Lumbar spondylosis 01/30/2012 7 Other disorder of muscle, li gament, and fascia 07/10/2011 12/24/2015 Enthesopathy of hip region 07/08/2011 0 04/24/2021 Hyperlipemia 06/18/2010 01/08/2017 Dizziness and giddiness 08/27/2009 03/0 03/2013 Pain in joint, pelvic region and thigh 12/13/2007 05/20/2016 Other specified disorders of rotator cuff syndrome of shoulder and allied disorders 04/09/2007 09/23/2016 Bronchiectasis 07/29/2006 11/27/2009 Unspecified asthma(493.90) 03/12/2006 0 01/20/2010 NERVE COMPRESSION POSTOPERATIVE 12/19/2005 09/23/2016 Arthropathy, unspecified, site unspecified 10/07/2005 12/24/2015 ASA CLASS II 03/17/2005 09/23/2016 Abdominal pain, left lower quadrant 11/11/2012 Alternating constipation and diarrhea 07/04/2020 documented as of this encounter (statuses as of 10/20/2023) [facility]08-13-2021 History of Past illness Narrative* Problem Noted Date Diagnosed Date Resolved Date 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 04/24/2021 Bradycardia 01/18/2021 08/01/2022 Conjunctivitis 11/06/2020 04/24/2021 Pseudophakia, both eyes 07/23/2020 0804/2021 Glaucoma suspect of both eyes 05/01/2020 04/24/2021 Narrow angle glaucoma suspect of both eyes 05/01/2020 04/24/2021 Pain in right hip 08/05/2017 09/30/2017 Gait disturbance 01/29/2017 06/24/2017 Pulmonary nodule 01/08/2017 09/30/2017 Anticoagulated 11/25/2016 09/30/2017 Pulmonary embolism with acute cor pulmonale 11/24/2016 12/29/2017 Overview: Dr. Jaswant Miller, pulmonary. On home oxygen therapy 11/24/201606/24 Medicare annual wellness visit, initial 06/22/2012 06/24/2017 Foraminal stenosis of cervical region 01/30/2012 06/24/2017 Myofascial pain 01/30/2012 05/20/2016 Lumbar strain 01/30/2012 09/23/2016 Lumbar spondylosis 01/30/2012 7 Other disorder of muscle, li gament, and fascia 07/10/2011 12/24/2015 Enthesopathy of hip region 07/08/2011 0 04/24/2021 Hyperlipemia 06/18/2010 01/08/2017 Dizziness and giddiness 08/27/2009 03/0 03/2013 Pain in joint, pelvic region and thigh 12/13/2007 05/20/2016 Other specified disorders of rotator cuff syndrome of shoulder and allied disorders 04/09/2007 09/23/2016 Bronchiectasis 07/29/2006 11/27/2009 Unspecified asthma(493.90) 03/12/2006 0 01/20/2010 NERVE COMPRESSION POSTOPERATIVE 12/19/2005 09/23/2016 Arthropathy, unspecified, site unspecified 10/07/2005 12/24/2015 ASA CLASS II 03/17/2005 09/23/2016 Abdominal pain, left lower quadrant 11/11/2012 Alternating constipation and diarrhea 07/04/2020 documented as of this encounter (statuses as of 10/22/2023) [facility] Venous (peripheral) insufficiency- Primary Unspecified venous (peripheral) [facility] Pleurisy- Primary Pleurisy without mention of effusion or current tuberculosis Vitamin D deficiency Unspecified vitamin D deficiency Bronchiectasis without complication (HCC) Bronchiectasis without acute exacerbation Essential hypertension Unspecified essential hypertension Acquired hypothyroidism Unspecified hypothyroidism Elevated alkaline phosphatase measurement Other nonspecific abnormal serum enzyme levels Need for COVID-19 vaccine Personal history of squamous cell carcinoma of skin Personal history of other malignant neoplasm of skin [facility] Diagnosis Primary open angle glaucoma (POAG) of both eyes, mild stage- Primary 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, bilateral, intermediate dry stage Essential hypertension Unspecified essential hypertension [facility] Diagnosis Anxiety Anxiety state, unspecified [facility] Diagnosis Enthesopathy of right hip region Osteoarthritis, unspecified osteoarthritis type, unspecified site DDD (degenerative disc disease), lumbar Degeneration of lumbar or lumbosacral intervertebral disc [facility] Diagnosis Urinary tract infection without hematuria, site unspecified- Primary Dysuria [facility] Diagnosis Recurrent UTI (urinary tract infection)- Primary Urinary tract infection, site not specified [facility] Diagnosis Recurrent UTI- Primary Urinary tract infection, site not specified [facility] Diagnosis Recurrent UTI Urinary tract infection, site not specified [facility] Diagnosis Primary open angle glaucoma (POAG) of both eyes, mild stage- Primary 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, bilateral, intermediate dry stage Essential hypertension Unspecified essential hypertension [facility] Diagnosis Gastroesophageal reflux disease with esophagitis Primary open angle glaucoma (POAG) of left eye, mild stage [facility] Diagnosis Medicare annual wellness visit, subsequent- Primary Routine general medical examination at a [facility] care facility Dysfunction of left eustachian tube Dysfunction of Eustachian tube Depressive disorder w/ seasonal affective disorder Depressive disorder, not elsewhere classified Acquired hypothyroidism Unspecified hypothyroidism Anxiety Anxiety state, unspecified DDD (degenerative disc disease), lumbar Degeneration of lumbar or lumbosacral intervertebral disc Mixed stress and urge urinary incontinence Mixed incontinence urge and stress (male)(female) Essential hypertension Unspecified essential hypertension Recurrent UTI Urinary tract infection, site not specified Primary open angle glaucoma (POAG) of left eye, mild stage [facility] Diagnosis DDD (degenerative disc disease), lumbar Degeneration of lumbar or lumbosacral intervertebral disc Depressive disorder w/ seasonal affective disorder Depressive disorder, not elsewhere classified Acquired hypothyroidism Unspecified hypothyroidism Enthesopathy of right hip region Osteoarthritis, unspecified osteoarthritis type, unspecified site Gastroesophageal reflux disease with esophagitis Anxiety Anxiety state, unspecified [facility] Diagnosis DDD (degenerative disc disease), lumbar Degeneration of lumbar or lumbosacral intervertebral disc Depressive disorder w/ seasonal affective disorder Depressive disorder, not elsewhere classified Acquired hypothyroidism Unspecified hypothyroidism Enthesopathy of right hip region Osteoarthritis, unspecified osteoarthritis type, unspecified site Gastroesophageal reflux disease with esophagitis Anxiety Anxiety state, unspecified [facility] Diagnosis Acute constipation- Primary Unspecified constipation [facility] Diagnosis Depressive disorder w/ seasonal affective disorder Depressive disorder, not elsewhere classified [facility] Diagnosis DDD (degenerative disc disease), lumbar Degeneration of lumbar or lumbosacral intervertebral disc Depressive disorder w/ seasonal affective disorder Depressive disorder, not elsewhere classified Enthesopathy of right hip region Osteoarthritis, unspecified osteoarthritis type, unspecified site Acquired hypothyroidism Unspecified hypothyroidism [facility] Diagnosis Anxiety Anxiety state, unspecified [facility] Diagnosis Vitamin D deficiency Unspecified vitamin D deficiency [facility]* Diagnosis Onset Date Resolution Status Asthma acute Obesity acute 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 Essential hypertension acute Fatigue acute Presence of cardiac pacemaker May, acute Sick sinus syndrome acute Sinus bradycardia acute [facility] Work Phone: Evaluation note* Diagnosis Fall on same level from slipping, tripping or stumbling, subsequent encounter- Primary Abrasion, multiple sites Abrasion or friction burn of other, multiple, and unspecified sites, without mention of infection Injury of head, subsequent encounter Injury of right knee, subsequent encounter Need for vaccine for DT (diphtheria-tetanus) Need for prophylactic vaccination with tetanus-diphtheria (Td) Encounter for immunization Need for other specified prophylactic vaccination against single bacterial disease Screening mammogram for breast cancer [facility] Diagnosis Abnormal screening mammogram- Primary Abnormal mammogram, unspecified [facility] Diagnosis Screening mammogram for breast cancer [facility] Diagnosis Abnormal screening mammogram Abnormal mammogram, unspecified [facility] Diagnosis Abnormal screening mammogram Abnormal mammogram, unspecified [facility] Diagnosis Medicare annual wellness visit, subsequent- Primary Routine general medical examination at a health care facility Depression, recurrent (HCC) Major depressive disorder, recurrent episode, unspecified Bronchiectasis without complication (HCC) Bronchiectasis without acute exacerbation Stage 3 chronic kidney disease, unspecified whether stage 3a or 3b CKD (HCC) [facility]* Diagnosis Subarachnoid bleed (HCC)- Primary Subarachnoid hemorrhage DDD (degenerative disc disease), lumbar Degeneration of lumbar or lumbosacral intervertebral disc Acquired hypothyroidism Unspecified hypothyroidism Gastroesophageal reflux disease with esophagitis, unspecified whether hemorrhage Depressive disorder w/ seasonal affective disorder Depressive disorder, not elsewhere classified Anxiety Anxiety state, unspecified Injury of head, subsequent encounter Bronchiectasis without complication (HCC) Bronchiectasis without acute exacerbation Physical debility Debility, unspecified [facility] Diagnosis SAH (subarachnoid hemorrhage) (HCC) Subarachnoid hemorrhage SAH (subarachnoid hemorrhage) (HCC)- Primary Subarachnoid hemorrhage [facility] Diagnosis SAH (subarachnoid hemorrhage) (HCC)- Primary Subarachnoid hemorrhage [facility]* Diagnosis DDD (degenerative disc disease), lumbar- Primary Degeneration of lumbar or lumbosacral intervertebral disc Osteoarthritis, unspecified osteoarthritis type, unspecified site [facility]* Diagnosis Anxiety Anxiety state, unspecified [facility] Diagnosis DDD (degenerative disc disease), lumbar Degeneration of lumbar or lumbosacral intervertebral disc Acquired hypothyroidism Unspecified hypothyroidism Gastroesophageal reflux disease with esophagitis Depressive disorder w/ seasonal affective disorder Depressive disorder, not elsewhere classified Anxiety Anxiety state, unspecified [facility]* Diagnosis Traumatic brain injury, without loss of consciousness, subsequent encounter- Primary 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 Dizziness and giddiness Forgetfulness Other general symptoms Imbalance Abnormality of gait Post-traumatic headache, not intractable, unspecified chronicity pattern [facility] Diagnosis Anxiety Anxiety state, unspecified [facility]* Diagnosis Personal history of traumatic brain injury- Primary Sleep apnea, unspecified type Fatigue, unspecified type Aphagia Dysphagia, unspecified Impaired functional mobility, balance, gait, and endurance [facility]* Diagnosis SAH (subarachnoid hemorrhage) (HCC)- Primary Subarachnoid hemorrhage [facility] Diagnosis Personal history of traumatic brain injury- Primary [facility]* Diagnosis Anxiety Anxiety state, unspecified [facility] Diagnosis Essential hypertension- Primary Unspecified essential hypertension Fall from slip, trip, or stumble, initial encounter Balance problem Other symptoms involving nervous and musculoskeletal systems Asthmatic bronchitis , chronic (HCC) Chronic obstructive asthma, unspecified Acquired hypothyroidism Unspecified hypothyroidism Anxiety Anxiety state, unspecified [facility] Diagnosis Vitamin D deficiency Unspecified vitamin D deficiency documented [facility] this encounter [facility]* Diagnosis Hypersomnia- Primary Hypersomnia, unspecified 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, delayed sleep phase type Insomnia, unspecified type History of depression Personal history of other mental disorder History of anxiety Personal history of other mental disorder Snoring Other dyspnea and respiratory abnormality Nocturia Class 1 obesity with body mass index (BMI) of 31.0 to 31.9 in adult, unspecified obesity type, unspecified whether serious comorbidity present [facility] Diagnosis SAH (subarachnoid hemorrhage) (HCC)- Primary Subarachnoid hemorrhage [facility]* Diagnosis Subarachnoid hemorrhage (HCC)- Primary Subarachnoid hemorrhage [facility]* Diagnosis DDD (degenerative disc disease), lumbar Degeneration of lumbar or lumbosacral intervertebral disc [facility] Diagnosis Subarachnoid hemorrhage (HCC)- Primary Subarachnoid hemorrhage [facility]* Diagnosis Subarachnoid hemorrhage (HCC)- Primary Subarachnoid hemorrhage [facility] Diagnosis Nocturnal hypoxia- Primary Hypoxemia Chest discomfort Other chest pain Bronchiectasis without complication (HCC) Bronchiectasis without acute exacerbation [facility] Diagnosis Odynophagia- Primary Dysphagia, unspecified Oral thrush Candidiasis of mouth [facility] Diagnosis Nocturnal hypoxia- Primary Hypoxemia Sleep apnea-like behavior Class 1 obesity with body mass index (BMI) of 31.0 to 31.9 in adult, unspecified obesity type, unspecified whether serious comorbidity present Hypersomnia Hypersomnia, unspecified Insomnia, unspecified type Snoring Other dyspnea and respiratory abnormality [facility]* Diagnosis Sore throat- Primary Acute pharyngitis History of oral lesions Other and unspecified diseases of the oral soft tissues [facility] Diagnosis Subarachnoid hemorrhage (HCC)- Primary Subarachnoid hemorrhage [facility] Diagnosis Oxygen desaturation- Primary Hypoxemia Encounter for immunization Need for other specified prophylactic vaccination against single bacterial disease Asthmatic bronchitis , chronic (HCC) Chronic obstructive asthma, unspecified Bronchiectasis without complication (HCC) Bronchiectasis without acute exacerbation Nocturnal hypoxemia Hypoxemia Dyspnea, unspecified type [facility]* Diagnosis Oxygen desaturation Hypoxemia [facility]* Diagnosis Pleurisy Pleurisy without mention of effusion or current tuberculosis [facility]* Diagnosis Acquired hypothyroidism Unspecified hypothyroidism documented in this encounter [facility]* Diagnosis Fatigue, unspecified type- Primary Personal history of traumatic brain injury Impaired functional mobility, balance, gait, and endurance documented in this encounter [facility]* Diagnosis Excessive daytime sleepiness- Primary [facility]* Diagnosis DDD (degenerative disc disease), lumbar Degeneration of lumbar or lumbosacral intervertebral disc [facility]* Diagnosis Nocturnal hypoxia- Primary Hypoxemia Asthmatic bronchitis , chronic (HCC) Chronic obstructive asthma, unspecified Depression, recurrent (HCC) Major depressive disorder, recurrent episode, unspecified Stage 3 chronic kidney disease, unspecified whether stage 3a or 3b CKD (HCC) Bronchiectasis without complication (HCC) Bronchiectasis without acute exacerbation Essential hypertension Unspecified essential hypertension [facility]* Diagnosis Nocturnal hypoxemia- Primary Hypoxemia Bronchiectasis without complication (HCC) Bronchiectasis without acute exacerbation Pulmonary hypertension (HCC) Other chronic pulmonary heart diseases Mild intermittent asthma without complication Unspecified asthma [facility] Diagnosis Bronchiectasis without complication (HCC)- Primary Bronchiectasis without acute exacerbation [facility]* Diagnosis Gastroesophageal reflux disease with esophagitis Depressive disorder w/ seasonal affective disorder Depressive disorder, not elsewhere classified Anxiety Anxiety state, unspecified Acquired hypothyroidism Unspecified hypothyroidism documented in this encounter [facility] note* Diagnosis Hip pain, left Pain in joint, pelvic region and thigh [facility] Diagnosis Hip pain, left- Primary Pain in joint, pelvic region and thigh Physical debility Debility, unspecified Oxygen desaturation Hypoxemia Bronchiectasis without complication (HCC) Bronchiectasis without acute exacerbation [facility]* Diagnosis Hip pain, left- Primary Pain in joint, pelvic region and thigh [facility] Diagnosis Fatigue, unspecified type- Primary 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 lower extremity pain Physical debility Debility, unspecified [facility] noteNo assessment information availableWAC[facility] Work Phone: Evaluation note* Diagnosis Chronic obstructive pulmonary disease, unspecified COPD type (HCC)- Primary [facility]* Diagnosis Trochanteric bursitis of left hip- Primary Enthesopathy of hip region Fatigue, unspecified type 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 lower extremity pain Physical debility Debility, unspecified Iron deficiency Iron deficiency anemia, unspecified Vitamin D deficiency Unspecified vitamin D deficiency Recurrent major depressive disorder, in partial remission [facility]* Diagnosis Chronic bilateral low back pain without sciatica- Primary Hip pain, left Pain in joint, pelvic region and thigh Pain of erector spinae muscle [facility]* Diagnosis Medicare annual wellness visit, subsequent- Primary Routine general medical examination at a health care facility Depression, recurrent Major depressive disorder, recurrent episode, unspecified Anxiety Anxiety state, unspecified Allergy to penicillin Personal history of allergy to penicillin Mild intermittent extrinsic asthma with acute exacerbation (HCC) Acquired hypothyroidism Unspecified hypothyroidism Vitamin D deficiency Unspecified vitamin D deficiency Stage 3 chronic kidney disease, unspecified whether stage 3a or 3b CKD (HCC) Dyspnea on exertion Other dyspnea and respiratory abnormality [facility]* Diagnosis Personal history of traumatic brain injury- Primary Sleep apnea, unspecified type [facility]* Diagnosis Depression, recurrent- Primary Major depressive disorder, recurrent episode, unspecified Hip pain, left Pain in joint, pelvic region and thigh Dyspnea on exertion Other dyspnea and respiratory abnormality [facility]* Diagnosis MARTINES (dyspnea on exertion) Other dyspnea and respiratory abnormality [facility]* Diagnosis MARTINES (dyspnea on exertion) Other dyspnea and respiratory abnormality [facility]* Diagnosis Depression, recurrent- Primary Major depressive disorder, recurrent episode, unspecified Hip pain, left Pain in joint, pelvic region and thigh MARTINES (dyspnea on exertion) Other dyspnea and respiratory abnormality Contusion of left side of back, subsequent encounter [facility] Additional Instructions Please follow-up with your PCP return for any worsening of your symptoms. Ice your face and knee a few times a day for the next few days, you can take Tylenol for pain as needed. [facility] Work Phone: Hospital Discharge instructions Additional Instructions You do not have a blood clot or further fracture on your work-up today. I suspect your swelling is more from the movement of fluid from gravity. Elevating your leg and wearing a compression stocking or Tony wrap will help with this. Continue to ice. Try to take it easy. Follow-up with your primary care doctor. To begin information for outpatient orthopedics if you would like to be seen by an orthopedist.[facility] Work Phone: Reason for referral (narrative)* Diagnostic Procedure Only (Routine) - Authorized Specialty Diagnoses / Procedures Referred By Bhupinder barreto Referred To Contact [facility] Diagnoses Screening mammogram for breast cancer Procedures SOPHIE SCREENING SCREENING MAMMOGRAPHY BI 2-VIEW BREAST INC CAD Dia Thayer APRN.CNP [address] [place] [address] [facility] [address] [place] [address] Referral ID Status Reason Start Date Expiration Date Visits Requested Visits Authorized [id number] Authorized Auto-Generat ed Referral 05/21/2023 06/19/2024 1 1 [facility] for referral (narrative)* Diagnostic Procedure Only (Routine) - Pending Review Specialty Diagnoses / Procedures Referred By Bhupinder barreto Referred To Contact [facility] Diagnoses Abnormal screening mammogram Procedures US BREAST LTD LEFT US BREAST UNI REAL TIME WITH IMAGE LIMITED Dia Thayer APRN.MICROBIOLOGICAL LABORATORY TECHNICIAN [address] [place] [address] [facility] [address] [place] [address] Referral ID Status Reason Start Date Expiration Date Visits Requested Visits Authorized [id number] Pending Review Auto-Generat ed Referral 07/08/2023 08/06/2024 1 1 * Diagnostic Procedure Only (Routine) - Pending Review Specialty Diagnoses / Procedures Referred By Bhupinder t Referred To Contact [facility] Diagnoses Abnormal screening mammogram Procedures SOPHIE DIAGNOSTIC LEFT DIAGNOSTIC MAMMOGRAPHY COMPUTER-AIDED DETCJ UNI Dia Thayer APRN.MICROBIOLOGICAL LABORATORY TECHNICIAN [address] [place] [address] [facility] [address] [place] [phone] Referral ID Status Reason Start Date Expiration Date Visits Requested Visits Authorized [id number] Pending Review Auto-Generat ed Referral 07/08/2023 08/06/2024 1 1 [facility] for referral (narrative)* Diagnostic Procedure Only (Routine) - Closed Specialty Diagnoses / Procedures Referred By Bhupinder t Referred To Contact [facility] Diagnoses Screening mammogram for breast cancer Procedures SOPHIE SCREENING SCREENING MAMMOGRAPHY BI 2-VIEW BREAST INC CAD Dia Thayer APRN.MICROBIOLOGICAL LABORATORY TECHNICIAN [address] [place] [address] [facility] [address] [place] [phone] Referral ID Status Reason Start Date Expiration Date V isits Requested Visits Authorized [id number] Closed Auto-Generate d Referral 05/21/2023 06/19/2024 1 1 [facility] for referral (narrative)* Diagnostic Procedure Only (Routine) - Authorized Specialty Diagnoses / Procedures Referred By Bhupinder t Referred To [facility] Diagnoses Hypersomnia Delayed sleep phase syndrome Insomnia, unspecified type Snoring Procedures HOME SLEEP APNEA TEST (HSAT) SLEEP STD AIRFLOW HRT RATE&O2 SAT EFFORT FELICITASTT Kaya Cartwright Jr., MD [address] [facility] [address] [place] [address] [address] Referral ID Status Reason Start Date Expiration Date Visits Requested Visits Authorized [id number] Authorized Auto-Generat ed Referral 04/18/2024 04/18/2025 1 1 [facility] for referral (narrative)* Outpatient Procedure (Routine) - Authorized Specialty Diagnoses / Procedures Referred By Claudineac t Referred To Contact [facility] Diagnoses Chest discomfort Nocturnal hypoxia Procedures ECHO ECHO TTHRC R-T 2D W/WOM-MODE COMPL SPEC&COLR D Dia Lopez TITLE INSURANCE SALES REPRESENTATIVE.MICROBIOLOGICAL LABORATORY TECHNICIAN [address] [place] [address] [facility] [address] [place] [phone] Referral ID Status Reason Start Date Expiration Date Visits Requested Visits Authorized [id number] Authorized Auto-Generat ed Referral 05/13/2024 05/13/2025 1 1 * Outpatient Procedure (Routine) - New Request Specialty Diagnoses / Procedures Referred By Bhupinder barreto Referred To Contact [facility] Diagnoses Chest discomfort Procedures ECG COMPLETE ECG ROUTINE ECG W/LEAST 12 LDS W/I&R Dia Lopez TITLE INSURANCE SALES REPRESENTATIVE.MICROBIOLOGICAL LABORATORY TECHNICIAN [address] [place] [address] [facility] [address] [place] [id number] Referral ID Status Reason Start Date Expiration Date Visits Requested Visits Authorized [id number] New Request Auto-Generat ed Referral 05/13/2024 05/13/2025 1 1 [facility] for referral (narrative)No reason for referral information availableWACMC [facility] Work Phone: Rewlrn for visit Narrative* Diagnostic Procedure Only (Routine) - Closed Specialty Diagnoses / Procedures Referred By Bhupinder barreto Referred To Contact [facility] Diagnoses Screening mammogram for breast cancer Procedures SOPHIE SCREENING SCREENING MAMMOGRAPHY BI 2-VIEW BREAST INC Dia Cabrera TITLE INSURANCE SALES REPRESENTATIVE.MICROBIOLOGICAL LABORATORY TECHNICIAN [address] [place] [address] [facility] [address] [place] [address] Referral ID Status Reason Start Date Expiration Date V isits Requested Visits Authorized [id number] Closed Auto-Generate d Referral 05/21/2023 06/19/2024 1 1 [facility] for visit Narrative* Diagnostic Procedure Only (Routine) - Authorized Specialty Diagnoses / Procedures Referred By Contac t Referred To Contact [facility] Diagnoses Abnormal screening mammogram Procedures US BREAST LTD LEFT US BREAST UNI REAL TIME WITH IMAGE LIMITED Jeovany, Dia, TITLE INSURANCE SALES REPRESENTATIVE.MICROBIOLOGICAL LABORATORY TECHNICIAN [address] [place] [address] [facility] [address] [place] [address] Referral ID Status Reason Start Date Expiration Date Visits Requested Visits Authorized [id number] Authorized Auto-Generat ed Referral 07/08/2023 08/06/2024 1 1 [facility] for visit Narrative* Diagnostic Procedure Only (Routine) - Closed Specialty Diagnoses / Procedures Referred By Contac t Referred To Contact [facility] Diagnoses Abnormal screening mammogram Procedures SOPHIE DIAGNOSTIC LEFT DIAGNOSTIC MAMMOGRAPHY COMPUTER-AIDED DETCJ UNI Jeovany, Dia, TITLE INSURANCE SALES REPRESENTATIVE.MICROBIOLOGICAL LABORATORY TECHNICIAN [address] [place] [address] [facility] [address] [place] [phone] Referral ID Status Reason Start Date Expiration Date V isits Requested Visits Authorized [id number] Closed Auto-Generate d Referral 07/08/2023 08/06/2024 1 1 [facility] for visit Narrative* Diagnostic Procedure Only (Routine) - Closed Specialty Diagnoses / Procedures Referred By Contac t Referred To Contact [facility] Diagnoses Hip pain, left Procedures XR HIP GENERAL 3V PELV/AP/LAT LEFT RADEX HIP UNILATERAL WITH PELVIS 2-3 VIEWS Ken Contreras MD [address] [place] [address] Phone: tel: fax: [place] [address] Referral ID Status Reason Start Date Expiration Date V isits Requested Visits Authorized [id number] Closed Auto-Generate d Referral 11/24/2024 12/24/2025 1 1 [facility] Advance Directives Documents on File Type Date Recorded Patient 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 Engineer 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 Advance Directive(s) 10/08/2012 8:08 PM Advance Directive(s) 09/13/2012 1:28 PM Advance Directive Response Recorded Date/ Time Advance Directives Yes May 10:59am Living Will Yes May 29, 2021 3:45pm Power of Edge Inker Yes May 3:45pm Documents on File Type Date Recorded Patient 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 Engineer 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 Advance Directive(s) 10/08/2012 8:08 PM Advance Directive(s) 09/13/2012 1:28 PM Advance Directive Response Recorded Date/ Time Advance Directives Yes May 9:59am Living Will Yes May 29, 2021 2:45pm Power of Edge Inker Yes May 2:45pm Advance Directive Response Recorded Date/ Time Name of Medical Power of Edge Inker BROTHER January 09, 2023 6:50pm Advance Directives Yes May 10:59am Living Will Yes January 09, 2023 6: 50pm Power of Edge Inker Yes January 09, 2023 6:50pm Advance Directive Response Recorded Date/ Time Advance Directives Yes May 10:59am Living Will Yes January 09, 2023 6: 50pm Power of Edge Inker Yes January 09, 2023 6:50pm Advance Directive Response Recorded Date/ Time Name of Medical Power of Edge Inker ? May 18, 2023 2:23pm Advance Directives Yes May 10:59am Living Will Yes May 18, 2023 2:23pm Power of Edge Inker Yes May 2:23pm Advance Directive Response Recorded Date/ Time Name of Medical Power of Edge Inker ? May 18, 2023 2:23pm Name of Medical Power of Edge Inker GAMALIEL BLAND May 27, 2023 5:48pm Advance Directives Yes May 10:59am Living Will Yes May 27, 2023 5:48pm Power of Edge Inker Yes May 5:48pm Advance Directive Response Recorded Date/ Time Name of Medical Power of Edge Inker FARTUN EDWARDS October 02, 2023 7:10pm Advance Directives Yes May 9:59am Living Will Yes October 02 7:10pm Power of Edge Inker Yes October 02, 2023 7:10pm Latest Code Status on File Code Status Date Activated Date Inactivated Comments Full Code 10/05/2023 1:44 PM 10/05/2023 7:17 PM Question Answer Comments Full Code Order Discussed With: Patient Latest Code Status on File Code Status Date Activated Date Inactivated Comments Full Code 10/05/2023 1:44 PM 10/05/2023 7:17 PM Question Answer Comments Full Code Order Discussed With: Patient Date Activated Date Inactivated Comments 10/05/2023 1:44 PM 10/05/2023 7:17 PM Question Answer Comments Full Code Order Discussed With: Patient Date Activated Date Inactivated Comments 10/05/2023 1:44 PM 10/05/2023 7:17 PM Question Answer Comments Full Code Order Discussed With: Patient Advance Directive Response Recorded Date/ Time Living Will Yes August 08 4:42pm Power of Edge Inker Yes August 08, 2024 4:42pm Name of Medical Power of Edge Inker Benny Edwards August 08, 2024 4:42pm Living Will No September 05, 2 024 6:11pm Power of Edge Inker No September 05, 2024 6:11pm Advance Directives Yes May 10:59am Advance Directive Response Recorded Date/ Time Do you have a Healthcare Power of Edge Inker? 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 Reason for Visit Essential hypertensi on Presence of cardiac pacemaker Chronotropic incompetence with sinus node dysfunction Presence of cardiac pacemaker Sick sinus syndrome Sinus bradycardia Chief Complaint 3 mos remote PPM f/u 6 M FU UTI Unspecified hydronephrosis Reason for Visit Chronotropic incompe tence with sinus node dysfunction Presence of cardiac pacemaker Sick sinus syndrome Sinus bradycardia Asthma Chief Complaint REMOTE CHECK constipation Reason for Visit Chronotropic incompe tence with sinus node dysfunction Presence of cardiac pacemaker Sick sinus syndrome Sinus bradycardia Chief Complaint 6 M FU 6 M FU EORDERS Reason for Visit Asthma Obesity Chronotropic incompetence with sinus node dysfunction Essential hypertension Fatigue Presence of cardiac pacemaker Sick sinus syndrome Sinus bradycardia Chief Complaint 6 M FU 6 M FU EORDERS fall Reason for Visit Asthma Obesity Chronotropic incompetence with sinus node dysfunction Essential hypertension Fatigue Presence of cardiac pacemaker Sick sinus syndrome Sinus bradycardia Chief Complaint 6 M FU 6 M FU EORDERS fall r knee pain Reason for Visit Asthma Obesity Chronotropic incompetence with sinus node dysfunction Essential hypertension Fatigue Presence of cardiac pacemaker Sick sinus syndrome Sinus bradycardia Chief Complaint 3 mos remote PPM f/u 3 M FU FALL Reason for Visit Chronotropic incompe tence with sinus node dysfunction Presence of cardiac pacemaker Sick sinus syndrome Sinus bradycardia Chronotropic incompetence with sinus node dysfunction Essential hypertension Presence of cardiac pacemaker Sinus bradycardia Chief Complaint Admit Date fall August 08, 2024 2 :47pm LOW OXYGEN LEVELS September 05, 2024 5:08pm Pacer Check Remote September 23, 2024 2 :31am Other headache syndrome October 12 12:29pm INT LAB ORDER November 11, 2024 3:52 pm Chief Complaint Admit Date INT LAB ORDER November 11, 2024 3:52 pm Pacer Check Remote December 23, 2024 2:3 0am FALL February 15, 2025 2:13 pm Family History Relationship Condition Age at Onset Recorded Date/T fletcher mother Malignant neoplasm of breast Unknown Malignant neoplasm of colon Unknown father Malignant neoplasm Unknown grandmother Malignant neoplasm of breast Unknown Cerebrovascular accident (CVA) Unknown Reason for Referral Specialty Diagnoses / Procedures Referred By Bhupinder barreto Referred To Contact Diagnoses Recurrent UTI Jennifer Thayer, TITLE INSURANCE SALES REPRESENTATIVE.MICROBIOLOGICAL LABORATORY TECHNICIAN [address] [place] [address] Referral ID Status Reason Start Date Expiration Date V isits Requested Visits Authorized [id number] Pending Review 1 1 Specialty Diagnoses / Procedures Referred By Bhupinder barreto Referred To Contact CT IMAGING Diagnoses SAH (subarachnoid hemorrhage) (HCC) Procedures CT BRAIN WO IVCON CT HEAD/BRAIN W/O CONTRAST MATERIAL MoreDulce jaramillo PA-C [address] [place] [address] Ct Imaging [facility] Referral ID Status Reason Start Date Expiration Date V isits Requested Visits Authorized [id number] Closed Auto-Generate d Referral 10/03/2023 11/01/2024 1 1 Specialty Diagnoses / Procedures Referred By Contac t Referred To Contact Diagnoses Traumatic brain injury, without loss of consciousness, 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 Procedures CONSULT TO PSYCHIATRY OFFICE/OUTPATIENT [facility] 60 MINUTES Tremaine Landon MD [address] [id number] Referral ID Status Reason Start Date Expiration Date Visits Requested Visits Authorized [id number] Pending Review PCP Requested Referral 11/09/2023 11/08/2024 1 1 Specialty Diagnoses / Procedures Referred By Contac t Referred To Contact [facility] Diagnoses Personal history of traumatic brain injury Procedures CONSULT TO SPEECH THERAPY OFFICE/OUTPATIENT [facility] 60 MINUTES Ailyn Bonner, TITLE INSURANCE SALES REPRESENTATIVE.MICROBIOLOGICAL LABORATORY TECHNICIAN [address] [place] [address] [facility] [place] [id number] [place] [id number] Referral ID Status Reason Start Date Expiration Date Visits Requested Visits Authorized [id number] Authorized Auto-Generat ed Referral 01/06/2024 01/05/2025 99 99 Specialty Diagnoses / Procedures Referred By Contac t Referred To Contact Diagnoses Sleep apnea, unspecified type Fatigue, unspecified type Procedures CONSULT TO SLEEP MEDICINE - ADULT OFFICE/OUTPATIENT [facility] 60 MINUTES Ailyn Bonner, TITLE INSURANCE SALES REPRESENTATIVE.MICROBIOLOGICAL LABORATORY TECHNICIAN [address] [place] [address] Referral ID Status Reason Start Date Expiration Date Visits Requested Visits Authorized [id number] Authorized PCP Requested Referral 01/06/2024 01/05/2025 1 1 Specialty Diagnoses / Procedures Referred By Contac t Referred To Contact Ent - Otolaryngology Diagnoses Odynophagia Oral thrush Procedures CONSULT TO ENT OFFICE/OUTPATIENT [facility] 60 MINUTES Dia Lopez, TITLE INSURANCE SALES REPRESENTATIVE.MICROBIOLOGICAL LABORATORY TECHNICIAN [address] [place] [address] Referral ID Status Reason Start Date Expiration Date Visits Requested Visits Authorized [id number] Authorized PCP Requested Referral 05/13/2024 05/13/2025 1 1 Medications Administered Section Inactive Administered Medications - up to 3 most recent administrations Medication Order MAR Action Action Date Dose Rate Site fluorescein-benoxinate 0.25-0.4 % 1 Drop (FLURESS) 1 Drop, BOTH EYES, DIRECTED, Starting on Thu07/15/22 at 1430, Until Thu07/16/22 at 022, Administer for applanation tonometry. In the event of a Fluress shortage, administer Onsted-Fluor 1 drop into both eyes as directed for applanation tonometry Given 07/15/2022 2:30 PM EST 1 Drop PHENYLephrine 2.5 % 1 Drop (AK-DILATE, CASSIDY-SYNEPHRINE) 1 Drop, BOTH EYES, DIRECTED, Starting on Thu07/15/22 at 1430, Until Thu07/16/22 at 0229, Administer for dilation PROTECT FROM LIGHT Given 07/15/2022 2:30 PM EST 1 Drop proparacaine 0.5 % 1 Drop (ALCAINE) 1 Drop, BOTH EYES, DIRECTED, Starting on Thu07/15/22 at 1430, Until Thu07/16/22 at 0229, Administer for pneumo tonometry, tonopen tonometry, or pachymetry. In the event of a proparacaine shortage, administer tetracaine 0.5% ophthalmic drops 1 drop in the left eye as directed for pneumo tonometry, tonopen tonometry, or pachymetry Given 07/15/2022 2:30 PM EST 1 Drop tropicamide 1 % 1 Drop (MYDRIACYL) 1 Drop, BOTH EYES, DIRECTED, Starting on Thu07/15/22 at 1430, Until Thu07/16/22 at 022, Administer for dilation Given 07/15/2022 2:30 PM EST 1 Drop Summary Purpose Additional Source Comments Source Comments (unrecognize d section and content) In the event this informatio n is protected by the Federal Confidentiality of Alcohol and Drug Abuse Patient Records regulations: The Federal rules restrict any use of the information to criminally investigate or prosecute any alcohol or drug abuse patient.[facility] the event this information is protected by the Federal Confidentiality of Alcohol and Drug Abuse Patient Records regulations: The Federal rules restrict any use of the information to criminally investigate or prosecute any alcohol or drug abuse patient.[facility] the event this information is protected by the Federal Confidentiality of Alcohol and Drug Abuse Patient Records regulations: The Federal rules restrict any use of the information to criminally investigate or prosecute any alcohol or drug abuse patient.[facility] the event this information is protected by the Federal Confidentiality of Alcohol and Drug Abuse Patient Records regulations: The Federal rules restrict any use of the information to criminally investigate or prosecute any alcohol or drug abuse patient.[facility] the event this information is protected by the Federal Confidentiality of Alcohol and Drug Abuse Patient Records regulations: The Federal rules restrict any use of the information to criminally investigate or prosecute any alcohol or drug abuse patient.[facility] the event this information is protected by the Federal Confidentiality of Alcohol and Drug Abuse Patient Records regulations: The Federal rules restrict any use of the information to criminally investigate or prosecute any alcohol or drug abuse patient.[facility] the event this information is protected by the Federal Confidentiality of Alcohol and Drug Abuse Patient Records regulations: The Federal rules restrict any use of the information to criminally investigate or prosecute any alcohol or drug abuse patient.[facility] the event this information is protected by the Federal Confidentiality of Alcohol and Drug Abuse Patient Records regulations: The Federal rules restrict any use of the information to criminally investigate or prosecute any alcohol or drug abuse patient.[facility] the event this information is protected by the Federal Confidentiality of Alcohol and Drug Abuse Patient Records regulations: The Federal rules restrict any use of the information to criminally investigate or prosecute any alcohol or drug abuse patient.[facility] Troy[facility] the event this information is protected by the Federal Confidentiality of Alcohol and Drug Abuse Patient Records regulations: The Federal rules restrict any use of the information to criminally investigate or prosecute any alcohol or drug abuse patient.[facility] the event this information is protected by the Federal Confidentiality of Alcohol and Drug Abuse Patient Records regulations: The Federal rules restrict any use of the information to criminally investigate or prosecute any alcohol or drug abuse patient.[facility] the event this information is protected by the Federal Confidentiality of Alcohol and Drug Abuse Patient Records regulations: The Federal rules restrict any use of the information to criminally investigate or prosecute any alcohol or drug abuse patient.[facility] TroyIn the event this information is protected by the Federal Confidentiality of Alcohol and Drug Abuse Patient Records regulations: The Federal rules restrict any use of the information to criminally investigate or prosecute any alcohol or drug abuse patient.[facility] TroyIn the event this information is protected by the Federal Confidentiality of Alcohol and Drug Abuse Patient Records regulations: The Federal rules restrict any use of the information to criminally investigate or prosecute any alcohol or drug abuse patient.[facility] TroyIn the event this information is protected by the Federal Confidentiality of Alcohol and Drug Abuse Patient Records regulations: The Federal rules restrict any use of the information to criminally investigate or prosecute any alcohol or drug abuse patient.[facility] TroyIn the event this information is protected by the Federal Confidentiality of Alcohol and Drug Abuse Patient Records regulations: The Federal rules restrict any use of the information to criminally investigate or prosecute any alcohol or drug abuse patient.[facility] TroyIn the event this information is protected by the Federal Confidentiality of Alcohol and Drug Abuse Patient Records regulations: The Federal rules restrict any use of the information to criminally investigate or prosecute any alcohol or drug abuse patient.[facility] TroyIn the event this information is protected by the Federal Confidentiality of Alcohol and Drug Abuse Patient Records regulations: The Federal rules restrict any use of the information to criminally investigate or prosecute any alcohol or drug abuse patient.[facility] TroyIn the event this information is protected by the Federal Confidentiality of Alcohol and Drug Abuse Patient Records regulations: The Federal rules restrict any use of the information to criminally investigate or prosecute any alcohol or drug abuse patient.[facility] TroyIn the event this information is protected by the Federal Confidentiality of Alcohol and Drug Abuse Patient Records regulations: The Federal rules restrict any use of the information to criminally investigate or prosecute any alcohol or drug abuse patient.[facility] TroyIn the event this information is protected by the Federal Confidentiality of Alcohol and Drug Abuse Patient Records regulations: The Federal rules restrict any use of the information to criminally investigate or prosecute any alcohol or drug abuse patient.[facility] TroyIn the event this information is protected by the Federal Confidentiality of Alcohol and Drug Abuse Patient Records regulations: The Federal rules restrict any use of the information to criminally investigate or prosecute any alcohol or drug abuse patient.[facility] TroyIn the event this information is protected by the Federal Confidentiality of Alcohol and Drug Abuse Patient Records regulations: The Federal rules restrict any use of the information to criminally investigate or prosecute any alcohol or drug abuse patient.[facility] TroyIn the event this information is protected by the Federal Confidentiality of Alcohol and Drug Abuse Patient Records regulations: The Federal rules restrict any use of the information to criminally investigate or prosecute any alcohol or drug abuse patient.[facility] TroyIn the event this information is protected by the Federal Confidentiality of Alcohol and Drug Abuse Patient Records regulations: The Federal rules restrict any use of the information to criminally investigate or prosecute any alcohol or drug abuse patient.[facility] TroyIn the event this information is protected by the Federal Confidentiality of Alcohol and Drug Abuse Patient Records regulations: The Federal rules restrict any use of the information to criminally investigate or prosecute any alcohol or drug abuse patient.[facility] TroyIn the event this information is protected by the Federal Confidentiality of Alcohol and Drug Abuse Patient Records regulations: The Federal rules restrict any use of the information to criminally investigate or prosecute any alcohol or drug abuse patient.[facility] TroyIn the event this information is protected by the Federal Confidentiality of Alcohol and Drug Abuse Patient Records regulations: The Federal rules restrict any use of the information to criminally investigate or prosecute any alcohol or drug abuse patient.[facility] TroyIn the event this information is protected by the Federal Confidentiality of Alcohol and Drug Abuse Patient Records regulations: The Federal rules restrict any use of the information to criminally investigate or prosecute any alcohol or drug abuse patient.[facility] TroyIn the event this information is protected by the Federal Confidentiality of Alcohol and Drug Abuse Patient Records regulations: The Federal rules restrict any use of the information to criminally investigate or prosecute any alcohol or drug abuse patient.[facility] TroyIn the event this information is protected by the Federal Confidentiality of Alcohol and Drug Abuse Patient Records regulations: The Federal rules restrict any use of the information to criminally investigate or prosecute any alcohol or drug abuse patient.[facility] TroyIn the event this information is protected by the Federal Confidentiality of Alcohol and Drug Abuse Patient Records regulations: The Federal rules restrict any use of the information to criminally investigate or prosecute any alcohol or drug abuse patient.[facility] TroyIn the event this information is protected by the Federal Confidentiality of Alcohol and Drug Abuse Patient Records regulations: The Federal rules restrict any use of the information to criminally investigate or prosecute any alcohol or drug abuse patient.[facility] TroyIn the event this information is protected by the Federal Confidentiality of Alcohol and Drug Abuse Patient Records regulations: The Federal rules restrict any use of the information to criminally investigate or prosecute any alcohol or drug abuse patient.[facility] TroyIn the event this information is protected by the Federal Confidentiality of Alcohol and Drug Abuse Patient Records regulations: The Federal rules restrict any use of the information to criminally investigate or prosecute any alcohol or drug abuse patient.[facility] TroyIn the event this information is protected by the Federal Confidentiality of Alcohol and Drug Abuse Patient Records regulations: The Federal rules restrict any use of the information to criminally investigate or prosecute any alcohol or drug abuse patient.[facility] TroyIn the event this information is protected by the Federal Confidentiality of Alcohol and Drug Abuse Patient Records regulations: The Federal rules restrict any use of the information to criminally investigate or prosecute any alcohol or drug abuse patient.[facility] TroyIn the event this information is protected by the Federal Confidentiality of Alcohol and Drug Abuse Patient Records regulations: The Federal rules restrict any use of the information to criminally investigate or prosecute any alcohol or drug abuse patient.[facility] TroyIn the event this information is protected by the Federal Confidentiality of Alcohol and Drug Abuse Patient Records regulations: The Federal rules restrict any use of the information to criminally investigate or prosecute any alcohol or drug abuse patient.[facility] TroyIn the event this information is protected by the Federal Confidentiality of Alcohol and Drug Abuse Patient Records regulations: The Federal rules restrict any use of the information to criminally investigate or prosecute any alcohol or drug abuse patient.[facility] TroyIn the event this information is protected by the Federal Confidentiality of Alcohol and Drug Abuse Patient Records regulations: The Federal rules restrict any use of the information to criminally investigate or prosecute any alcohol or drug abuse patient.[facility] TroyIn the event this information is protected by the Federal Confidentiality of Alcohol and Drug Abuse Patient Records regulations: The Federal rules restrict any use of the information to criminally investigate or prosecute any alcohol or drug abuse patient.[facility] TroyIn the event this information is protected by the Federal Confidentiality of Alcohol and Drug Abuse Patient Records regulations: The Federal rules restrict any use of the information to criminally investigate or prosecute any alcohol or drug abuse patient.[facility] TroyIn the event this information is protected by the Federal Confidentiality of Alcohol and Drug Abuse Patient Records regulations: The Federal rules restrict any use of the information to criminally investigate or prosecute any alcohol or drug abuse patient.[facility] TroyIn the event this information is protected by the Federal Confidentiality of Alcohol and Drug Abuse Patient Records regulations: The Federal rules restrict any use of the information to criminally investigate or prosecute any alcohol or drug abuse patient.[facility] TroyIn the event this information is protected by the Federal Confidentiality of Alcohol and Drug Abuse Patient Records regulations: The Federal rules restrict any use of the information to criminally investigate or prosecute any alcohol or drug abuse patient.[facility] TroyIn the event this information is protected by the Federal Confidentiality of Alcohol and Drug Abuse Patient Records regulations: The Federal rules restrict any use of the information to criminally investigate or prosecute any alcohol or drug abuse patient.[facility] TroyIn the event this information is protected by the Federal Confidentiality of Alcohol and Drug Abuse Patient Records regulations: The Federal rules restrict any use of the information to criminally investigate or prosecute any alcohol or drug abuse patient.[facility] TroyIn the event this information is protected by the Federal Confidentiality of Alcohol and Drug Abuse Patient Records regulations: The Federal rules restrict any use of the information to criminally investigate or prosecute any alcohol or drug abuse patient.[facility] TroyIn the event this information is protected by the Federal Confidentiality of Alcohol and Drug Abuse Patient Records regulations: The Federal rules restrict any use of the information to criminally investigate or prosecute any alcohol or drug abuse patient.[facility] TroyIn the event this information is protected by the Federal Confidentiality of Alcohol and Drug Abuse Patient Records regulations: The Federal rules restrict any use of the information to criminally investigate or prosecute any alcohol or drug abuse patient.[facility] TroyIn the event this information is protected by the Federal Confidentiality of Alcohol and Drug Abuse Patient Records regulations: The Federal rules restrict any use of the information to criminally investigate or prosecute any alcohol or drug abuse patient.[facility] TroyIn the event this information is protected by the Federal Confidentiality of Alcohol and Drug Abuse Patient Records regulations: The Federal rules restrict any use of the information to criminally investigate or prosecute any alcohol or drug abuse patient.[facility] TroyIn the event this information is protected by the Federal Confidentiality of Alcohol and Drug Abuse Patient Records regulations: The Federal rules restrict any use of the information to criminally investigate or prosecute any alcohol or drug abuse patient.[facility] TroyIn the event this information is protected by the Federal Confidentiality of Alcohol and Drug Abuse Patient Records regulations: The Federal rules restrict any use of the information to criminally investigate or prosecute any alcohol or drug abuse patient.[facility] TroyIn the event this information is protected by the Federal Confidentiality of Alcohol and Drug Abuse Patient Records regulations: The Federal rules restrict any use of the information to criminally investigate or prosecute any alcohol or drug abuse patient.[facility] TroyIn the event this information is protected by the Federal Confidentiality of Alcohol and Drug Abuse Patient Records regulations: The Federal rules restrict any use of the information to criminally investigate or prosecute any alcohol or drug abuse patient.[facility] TroyIn the event this information is protected by the Federal Confidentiality of Alcohol and Drug Abuse Patient Records regulations: The Federal rules restrict any use of the information to criminally investigate or prosecute any alcohol or drug abuse patient.[facility] TroyIn the event this information is protected by the Federal Confidentiality of Alcohol and Drug Abuse Patient Records regulations: The Federal rules restrict any use of the information to criminally investigate or prosecute any alcohol or drug abuse patient.[facility] TroyIn the event this information is protected by the Federal Confidentiality of Alcohol and Drug Abuse Patient Records regulations: The Federal rules restrict any use of the information to criminally investigate or prosecute any alcohol or drug abuse patient.[facility] TroyIn the event this information is protected by the Federal Confidentiality of Alcohol and Drug Abuse Patient Records regulations: The Federal rules restrict any use of the information to criminally investigate or prosecute any alcohol or drug abuse patient.[facility] TroyIn the event this information is protected by the Federal Confidentiality of Alcohol and Drug Abuse Patient Records regulations: The Federal rules restrict any use of the information to criminally investigate or prosecute any alcohol or drug abuse patient.[facility] TroyIn the event this information is protected by the Federal Confidentiality of Alcohol and Drug Abuse Patient Records regulations: The Federal rules restrict any use of the information to criminally investigate or prosecute any alcohol or drug abuse patient.[facility] TroyIn the event this information is protected by the Federal Confidentiality of Alcohol and Drug Abuse Patient Records regulations: The Federal rules restrict any use of the information to criminally investigate or prosecute any alcohol or drug abuse patient.[facility] TroyIn the event this information is protected by the Federal Confidentiality of Alcohol and Drug Abuse Patient Records regulations: The Federal rules restrict any use of the information to criminally investigate or prosecute any alcohol or drug abuse patient.[facility] TroyIn the event this information is protected by the Federal Confidentiality of Alcohol and Drug Abuse Patient Records regulations: The Federal rules restrict any use of the information to criminally investigate or prosecute any alcohol or drug abuse patient.[facility] TroyIn the event this information is protected by the Federal Confidentiality of Alcohol and Drug Abuse Patient Records regulations: The Federal rules restrict any use of the information to criminally investigate or prosecute any alcohol or drug abuse patient.[facility] TroyIn the event this information is protected by the Federal Confidentiality of Alcohol and Drug Abuse Patient Records regulations: The Federal rules restrict any use of the information to criminally investigate or prosecute any alcohol or drug abuse patient.[facility] TroyIn the event this information is protected by the Federal Confidentiality of Alcohol and Drug Abuse Patient Records regulations: The Federal rules restrict any use of the information to criminally investigate or prosecute any alcohol or drug abuse patient.[facility] TroyIn the event this information is protected by the Federal Confidentiality of Alcohol and Drug Abuse Patient Records regulations: The Federal rules restrict any use of the information to criminally investigate or prosecute any alcohol or drug abuse patient.[facility] TroyIn the event this information is protected by the Federal Confidentiality of Alcohol and Drug Abuse Patient Records regulations: The Federal rules restrict any use of the information to criminally investigate or prosecute any alcohol or drug abuse patient.[facility] TroyIn the event this information is protected by the Federal Confidentiality of Alcohol and Drug Abuse Patient Records regulations: The Federal rules restrict any use of the information to criminally investigate or prosecute any alcohol or drug abuse patient.[facility] TroyIn the event this information is protected by the Federal Confidentiality of Alcohol and Drug Abuse Patient Records regulations: The Federal rules restrict any use of the information to criminally investigate or prosecute any alcohol or drug abuse patient.[facility] TroyIn the event this information is protected by the Federal Confidentiality of Alcohol and Drug Abuse Patient Records regulations: The Federal rules restrict any use of the information to criminally investigate or prosecute any alcohol or drug abuse patient.[facility] TroyIn the event this information is protected by the Federal Confidentiality of Alcohol and Drug Abuse Patient Records regulations: The Federal rules restrict any use of the information to criminally investigate or prosecute any alcohol or drug abuse patient.[facility] TroyIn the event this information is protected by the Federal Confidentiality of Alcohol and Drug Abuse Patient Records regulations: The Federal rules restrict any use of the information to criminally investigate or prosecute any alcohol or drug abuse patient.[facility] TroyIn the event this information is protected by the Federal Confidentiality of Alcohol and Drug Abuse Patient Records regulations: The Federal rules restrict any use of the information to criminally investigate or prosecute any alcohol or drug abuse patient.[facility] TroyIn the event this information is protected by the Federal Confidentiality of Alcohol and Drug Abuse Patient Records regulations: The Federal rules restrict any use of the information to criminally investigate or prosecute any alcohol or drug abuse patient.[facility] TroyIn the event this information is protected by the Federal Confidentiality of Alcohol and Drug Abuse Patient Records regulations: The Federal rules restrict any use of the information to criminally investigate or prosecute any alcohol or drug abuse patient.[facility] TroyIn the event this information is protected by the Federal Confidentiality of Alcohol and Drug Abuse Patient Records regulations: The Federal rules restrict any use of the information to criminally investigate or prosecute any alcohol or drug abuse patient.[facility] TroyIn the event this information is protected by the Federal Confidentiality of Alcohol and Drug Abuse Patient Records regulations: The Federal rules restrict any use of the information to criminally investigate or prosecute any alcohol or drug abuse patient.[facility] TroyIn the event this information is protected by the Federal Confidentiality of Alcohol and Drug Abuse Patient Records regulations: The Federal rules restrict any use of the information to criminally investigate or prosecute any alcohol or drug abuse patient.[facility] TroyIn the event this information is protected by the Federal Confidentiality of Alcohol and Drug Abuse Patient Records regulations: The Federal rules restrict any use of the information to criminally investigate or prosecute any alcohol or drug abuse patient.[facility] TroyIn the event this information is protected by the Federal Confidentiality of Alcohol and Drug Abuse Patient Records regulations: The Federal rules restrict any use of the information to criminally investigate or prosecute any alcohol or drug abuse patient.[facility] TroyIn the event this information is protected by the Federal Confidentiality of Alcohol and Drug Abuse Patient Records regulations: The Federal rules restrict any use of the information to criminally investigate or prosecute any alcohol or drug abuse patient.[facility] TroyIn the event this information is protected by the Federal Confidentiality of Alcohol and Drug Abuse Patient Records regulations: The Federal rules restrict any use of the information to criminally investigate or prosecute any alcohol or drug abuse patient.[facility] TroyIn the event this information is protected by the Federal Confidentiality of Alcohol and Drug Abuse Patient Records regulations: The Federal rules restrict any use of the information to criminally investigate or prosecute any alcohol or drug abuse patient.[facility] TroyIn the event this information is protected by the Federal Confidentiality of Alcohol and Drug Abuse Patient Records regulations: The Federal rules restrict any use of the information to criminally investigate or prosecute any alcohol or drug abuse patient.[facility] TroyIn the event this information is protected by the Federal Confidentiality of Alcohol and Drug Abuse Patient Records regulations: The Federal rules restrict any use of the information to criminally investigate or prosecute any alcohol or drug abuse patient.[facility] TroyIn the event this information is protected by the Federal Confidentiality of Alcohol and Drug Abuse Patient Records regulations: The Federal rules restrict any use of the information to criminally investigate or prosecute any alcohol or drug abuse patient.[facility] TroyIn the event this information is protected by the Federal Confidentiality of Alcohol and Drug Abuse Patient Records regulations: The Federal rules restrict any use of the information to criminally investigate or prosecute any alcohol or drug abuse patient.[facility] TroyIn the event this information is protected by the Federal Confidentiality of Alcohol and Drug Abuse Patient Records regulations: The Federal rules restrict any use of the information to criminally investigate or prosecute any alcohol or drug abuse patient.[facility] TroyIn the event this information is protected by the Federal Confidentiality of Alcohol and Drug Abuse Patient Records regulations: The Federal rules restrict any use of the information to criminally investigate or prosecute any alcohol or drug abuse patient.[facility] TroyIn the event this information is protected by the Federal Confidentiality of Alcohol and Drug Abuse Patient Records regulations: The Federal rules restrict any use of the information to criminally investigate or prosecute any alcohol or drug abuse patient.[facility] TroyIn the event this information is protected by the Federal Confidentiality of Alcohol and Drug Abuse Patient Records regulations: The Federal rules restrict any use of the information to criminally investigate or prosecute any alcohol or drug abuse patient.[facility] TroyIn the event this information is protected by the Federal Confidentiality of Alcohol and Drug Abuse Patient Records regulations: The Federal rules restrict any use of the information to criminally investigate or prosecute any alcohol or drug abuse patient.[facility] TroyIn the event this information is protected by the Federal Confidentiality of Alcohol and Drug Abuse Patient Records regulations: The Federal rules restrict any use of the information to criminally investigate or prosecute any alcohol or drug abuse patient.[facility] TroyIn the event this information is protected by the Federal Confidentiality of Alcohol and Drug Abuse Patient Records regulations: The Federal rules restrict any use of the information to criminally investigate or prosecute any alcohol or drug abuse patient.[facility] TroyIn the event this information is protected by the Federal Confidentiality of Alcohol and Drug Abuse Patient Records regulations: The Federal rules restrict any use of the information to criminally investigate or prosecute any alcohol or drug abuse patient.[facility] TroyIn the event this information is protected by the Federal Confidentiality of Alcohol and Drug Abuse Patient Records regulations: The Federal rules restrict any use of the information to criminally investigate or prosecute any alcohol or drug abuse patient.[facility] TroyIn the event this information is protected by the Federal Confidentiality of Alcohol and Drug Abuse Patient Records regulations: The Federal rules restrict any use of the information to criminally investigate or prosecute any alcohol or drug abuse patient.[facility] TroyIn the event this information is protected by the Federal Confidentiality of Alcohol and Drug Abuse Patient Records regulations: The Federal rules restrict any use of the information to criminally investigate or prosecute any alcohol or drug abuse patient.[facility] TroyIn the event this information is protected by the Federal Confidentiality of Alcohol and Drug Abuse Patient Records regulations: The Federal rules restrict any use of the information to criminally investigate or prosecute any alcohol or drug abuse patient.[facility] TroyIn the event this information is protected by the Federal Confidentiality of Alcohol and Drug Abuse Patient Records regulations: The Federal rules restrict any use of the information to criminally investigate or prosecute any alcohol or drug abuse patient.[facility] TroyIn the event this information is protected by the Federal Confidentiality of Alcohol and Drug Abuse Patient Records regulations: The Federal rules restrict any use of the information to criminally investigate or prosecute any alcohol or drug abuse patient.[facility] TroyIn the event this information is protected by the Federal Confidentiality of Alcohol and Drug Abuse Patient Records regulations: The Federal rules restrict any use of the information to criminally investigate or prosecute any alcohol or drug abuse patient.[facility] TroyIn the event this information is protected by the Federal Confidentiality of Alcohol and Drug Abuse Patient Records regulations: The Federal rules restrict any use of the information to criminally investigate or prosecute any alcohol or drug abuse patient.[facility] TroyIn the event this information is protected by the Federal Confidentiality of Alcohol and Drug Abuse Patient Records regulations: The Federal rules restrict any use of the information to criminally investigate or prosecute any alcohol or drug abuse patient.[facility] TroyIn the event this information is protected by the Federal Confidentiality of Alcohol and Drug Abuse Patient Records regulations: The Federal rules restrict any use of the information to criminally investigate or prosecute any alcohol or drug abuse patient.[facility] TroyIn the event this information is protected by the Federal Confidentiality of Alcohol and Drug Abuse Patient Records regulations: The Federal rules restrict any use of the information to criminally investigate or prosecute any alcohol or drug abuse patient.[facility] TroyIn the event this information is protected by the Federal Confidentiality of Alcohol and Drug Abuse Patient Records regulations: The Federal rules restrict any use of the information to criminally investigate or prosecute any alcohol or drug abuse patient.[facility] TroyIn the event this information is protected by the Federal Confidentiality of Alcohol and Drug Abuse Patient Records regulations: The Federal rules restrict any use of the information to criminally investigate or prosecute any alcohol or drug abuse patient.[facility] TroyIn the event this information is protected by the Federal Confidentiality of Alcohol and Drug Abuse Patient Records regulations: The Federal rules restrict any use of the information to criminally investigate or prosecute any alcohol or drug abuse patient.[facility] TroyIn the event this information is protected by the Federal Confidentiality of Alcohol and Drug Abuse Patient Records regulations: The Federal rules restrict any use of the information to criminally investigate or prosecute any alcohol or drug abuse patient.[facility] TroyIn the event this information is protected by the Federal Confidentiality of Alcohol and Drug Abuse Patient Records regulations: The Federal rules restrict any use of the information to criminally investigate or prosecute any alcohol or drug abuse patient.[facility] TroyIn the event this information is protected by the Federal Confidentiality of Alcohol and Drug Abuse Patient Records regulations: The Federal rules restrict any use of the information to criminally investigate or prosecute any alcohol or drug abuse patient.[facility] Reason for Visit (unrecogniz ed section and content) Reason Comments Physical Therapy Specialty Diagnoses / Procedures Referred By Bhupinder t Referred To Contact [facility] Diagnoses Subarachnoid hemorrhage (HCC) Procedures CONSULT TO PHYSICAL THERAPY PHYSICAL THERAPY EVALUATION HIGH COMPLEX 45 MINS Iris Deleon PA-C [address] [place] [address] [facility] [place] [address] [place] [address] Referral ID Status Reason Start Date Expiration Date Visits Requested Visits Authorized [id number] Authorized PCP Requested Referral Auto-Generate d Referral 10/12/2023 10/04/2024 99 99 Reason Onset Date Comments Refill Request 11/29/2021 Reason Comments Established Patient Reason Comments Opened In Error Reason Onset Date Comments Refill Request 02/10/2022 Reason Comments Primary Open Angle Glaucoma Follow Up Allen wick here as directed for intraocular pressure check Both Eyes. Reason Comments sinus pressure ear ache Reason Onset Date Comments Refill Request 04/14/2022 Reason Onset Date Comments Refill Request 05/07/2022 Reason Comments Patient Question Reason Comments Medication Problem Patient Update Reason Onset Date Comments Refill Request 05/31/2022 Reason Onset Date Comments Refill Request 06/18/2022 Reason Comments uti symptoms Reason Comments Results Reason Comments reoccurant UTI Reason Comments Insurance Authorization Reason Comments Acute Visit recurring UTI Reason Comments Primary Open Angle Glaucoma Follow Up Reason Onset Date Comments Refill Request 07/18/2022 Reason Comments Medicare Wellness Exam Reason Onset Date Comments Refill Request 09/15/2022 Refill Request 09/17/2022 Reason Onset Date Comments Refill Request 10/30/2022 Reason Comments Handicap Placard Renewal Request Reason Onset Date Comments Refill Request 11/16/2022 Reason Onset Date Comments Refill Request 12/08/2022 Reason Onset Date Comments Refill Request 12/07/2022 Reason Onset Date Comments Refill Request 12/10/2022 Reason Comments Constipation X4 days, no relief w ith Dulcolax and enema Reason Onset Date Comments Refill Request 02/07/2023 Reason Onset Date Comments Refill Request 02/16/2023 Reason Onset Date Comments Refill Request 03/10/2023 Reason Onset Date Comments Refill Request 04/28/2023 Reason Comments ER F/U 05/18/23 Reason Comments Medicare Wellness Exam F/U 6 months Reason Comments Transition Of Care Reason Comments Radiology CT Specialty Diagnoses / Procedures Referred By Contac t Referred To Contact CT IMAGING Diagnoses SAH (subarachnoid hemorrhage) (HCC) Procedures CT BRAIN WO IVCON CT HEAD/BRAIN W/O CONTRAST MATERIAL Dulce Vallejo, NIRMAL [address] [place] [address] [place] [address] Referral ID Status Reason Start Date Expiration Date V isits Requested Visits Authorized [id number] Closed Auto-Generate d Referral 10/03/2023 11/01/2024 1 1 Reason Onset Date Comments Refill Request 11/04/2023 Reason Onset Date Comments Refill Request 11/03/2023 Reason Comments New Patient Reason Onset Date Comments Refill Request 12/05/2023 Reason Comments Follow Up Reason Comments Speech Evaluation Specialty Diagnoses / Procedures Referred By Contac t Referred To Contact [facility] Diagnoses Personal history of traumatic brain injury Procedures CONSULT TO SPEECH THERAPY OFFICE/OUTPATIENT [facility] MDM 60 MINUTES Ailyn Bonner, TITLE INSURANCE SALES REPRESENTATIVE.MICROBIOLOGICAL LABORATORY TECHNICIAN [address] [place] [address] [facility] [place] [address] [place] [address] Referral ID Status Reason Start Date Expiration Date Visits Requested Visits Authorized [id number] Authorized Auto-Generat ed Referral 01/06/2024 01/05/2025 99 99 Reason Onset Date Comments Refill Request 03/01/2024 Reason Comments F/U 6 months Reason Onset Date Comments Refill Request 04/02/2024 Reason Comments New Patient Evaluation C/o not being abl e to stay sleep at night poss. D/t urine frequency, difficulty waking in the morning, no cpap, has had sleep study done but no action taken after results Specialty Diagnoses / Procedures Referred By Contac t Referred To Contact Diagnoses Sleep apnea, unspecified type Fatigue, unspecified type Procedures CONSULT TO SLEEP MEDICINE - ADULT OFFICE/OUTPATIENT [facility] MDM 60 MINUTES Spanower, Ailyn M, TITLE INSURANCE SALES REPRESENTATIVE.MICROBIOLOGICAL LABORATORY TECHNICIAN [address] [place] [address] Referral ID Status Reason Start Date Expiration Date V isits Requested Visits Authorized [id number] Closed PCP Requested Referral 01/06/2024 01/05/2025 1 1 Reason Comments Follow Up Reason Comments PT Eval Reason Onset Date Comments Refill Request 05/02/2024 Reason Comments Evaluate for hypoxia per [facility] Reason Comments Referral Request Reason Comments Appointment Reason Comments New Patient Had white spots in m out 05/13, most of them are gone nowThroat mckeon when swallowing liquids-except milk Specialty Diagnoses / Procedures Referred By Bhupinder barreto Referred To Contact Ent - Otolaryngology Diagnoses Odynophagia Oral thrush Procedures CONSULT TO ENT OFFICE/OUTPATIENT [facility] 60 MINUTES Dia Lopez, TITLE INSURANCE SALES REPRESENTATIVE.MICROBIOLOGICAL LABORATORY TECHNICIAN [address] [place] [address] Referral ID Status Reason Start Date Expiration Date V isits Requested Visits Authorized [id number] Closed PCP Requested Referral 05/13/2024 05/13/2025 1 1 Reason Comments Orders Reason Comments Follow Up From PT Reason Comments Patient Update Reason Comments faxed orders to [facility]- polysomnogram Reason Onset Date Comments Refill Request 06/05/2024 Reason Comments Follow Up 6 months Reason Comments Follow Up Discuss PSG results Reason Comments Fall Reason Comments Question Reason Onset Date Comments Refill Request 09/04/2024 Reason Comments Recheck 6 months Reason Comments New Patient Bronchiectasis hypoxemia Reason Onset Date Comments Refill Request 10/30/2024 Reason Comments Pain, Back Radiates down LEFT h ip Reason Comments Consult Orthopedic Reason Comments Patient Question Reason Onset Date Comments Refill Request 12/06/2024 Reason Comments Geriatric Evaluation Geriatric evaluatio n Specialty Diagnoses / Procedures Referred By Bhupinder barreto Referred To Contact Gerontology Diagnoses Fatigue, unspecified type 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 lower extremity pain Physical debility Procedures CONSULT TO GERIATRICS OFFICE/OUTPATIENT [facility] 60 MINUTES Ken Contreras MD [address] [place] [address] Phone: tel: fax: Referral ID Status Reason Start Date Expiration Date V isits Requested Visits Authorized [id number] Closed PCP Requested Referral 12/01/2024 12/01/2025 1 1 Reason Comments New Pain Specialty Diagnoses / Procedures Referred By Contac t Referred To Contact Orthopedics Diagnoses Hip pain, left Procedures CONSULT TO ORTHOPAEDICS OFFICE/OUTPATIENT [facility] [place] 60 [place] [address] [place] [address] Phone: tel: fax: Referral ID Status Reason Start Date Expiration Date V isits Requested Visits Authorized [id number] Closed PCP Requested Referral 11/29/2024 11/29/2025 1 1 Reason Comments Fax Request Reason Comments Depression Hip Pain Shortness of Breath Reason Comments Request for records Reason Comments Spirometry Specialty Diagnoses / Procedures Referred By Contac t Referred To [facility] Diagnoses MARTINES (dyspnea on exertion) Procedures SPIROMETRY - BASELINE AND POST DILATOR BRNCDILAT RSPSE SPMTRY PRE&POST-BRNCDILAT ADMN Cami Mars MD [address] [place] [address] Phone: tel: fax: [facility] [place] [address] [place] [address] Referral ID Status Reason Start Date Expiration Date V isits Requested Visits Authorized [id number] Closed Auto-Generate d Referral 01/25/2025 02/24/2026 1 1 Specialty Diagnoses / Procedures Referred By Contac t Referred To [facility] Diagnoses MARTINES (dyspnea on exertion) Procedures LUNG VOLUMES Cami Mars MD [facility] [place] [address] Phone: tel: fax: [facility] [place] [address] [place] [address] Referral ID Status Reason Start Date Expiration Date V isits Requested Visits Authorized [id number] Closed Auto-Generate d Referral 01/25/2025 02/24/2026 1 1 Reason Comments [facility] Scheduling dept requesting records Reason Comments Head Injury Reason Comments 4 week follow-up Reason Onset Date Comments Refill Request 03/04/2025 Care Teams (unrecognized sec tion and content) [employer] Principal Relationship Specialty Start Date End Date Ken Contreras MD [address] [facility] [place] [address] PCP - General Internal Medicine 05/01/[address] [place] [address] Cardiology 05/01/21 [employer] Principal Relationship Specialty Start Date End Date Ken Contreras MD [address] [place] [address] PCP - General Internal Medicine 05/01/[address]aved [address] [place] [address] Cardiology 05/01/21 [employer] Principal Relationship Specialty Start Date End Date Ken Contreras MD [address] [facility] [place] [address] PCP - General Internal Medicine 05/01/[address] [place] [address] Cardiology 05/01/21 [employer] Principal Relationship Specialty Start Date End Date Ken Contreras MD [address] [facility] [place] [address] PCP - General Internal Medicine 05/01/[address]aved [address] [place] [address] Cardiology 05/01/21 [employer] Principal Relationship Specialty Start Date End Date Ken Contreras MD [address] [facility] [place] [address] PCP - General Internal Medicine 05/01/17 Marquise Javed [address] [place] [address] Cardiology 05/01/21 [employer] Principal Relationship Specialty Start Date End Date Ken Contreras MD [address] [facility] [place] [address] PCP - General Internal Medicine 05/01/17 [address]aved [address] [place] [address] Cardiology 05/01/21 [employer] Principal Relationship Specialty Start Date End Date Ken Contreras MD [address] [facility] [place] [address] PCP - General Internal Medicine 05/01/17 Marquise Javed [address] [place] [address] Cardiology 05/01/21 [employer] Principal Relationship Specialty Start Date End Date Ken Contreras MD [address] [facility] [place] [address] PCP - General Internal Medicine 05/01/17 Marquise Javed [address] [place] [address] Cardiology 05/01/21 [employer] Principal Relationship Specialty Start Date End Date Ken Contreras MD [address] [facility] [place] [address] PCP - General Internal Medicine 05/01/17 Marquise Javed [address] [place] [address] Cardiology 05/01/21 [employer] Principal Relationship Specialty Start Date End Date Ken Contreras MD [address] [facility] [place] [address] PCP - General Internal Medicine 05/01/17 Marquise Javed [address] [place] [address] Cardiology 05/01/21 [employer] Principal Relationship Specialty Start Date End Date Ken Contreras MD [address] [facility] [place] [address] PCP - General Internal Medicine 05/01/17 Marquise Javed [address] [place] [address] Cardiology 05/01/21 [employer] Principal Relationship Specialty Start Date End Date Ken Contreras MD [address] [facility] [place] [address] PCP - General Internal Medicine 05/01/17 Marquise Javed [address] [place] [address] Cardiology 05/01/21 [employer] Principal Relationship Specialty Start Date End Date Ken Contreras MD [address] [facility] [place] [address] PCP - General Internal Medicine 05/01/17 Marquise Javed [address] [place] [address] Cardiology 05/01/21 [employer] Principal Relationship Specialty Start Date End Date Ken Contreras MD [address] [facility] [place] [address] PCP - General Internal Medicine 05/01/17 Marquise Javed [address] [place] [address] Cardiology 05/01/21 [employer] School Principal Relationship Specialty Start Date End Date Ken Contreras MD [address] [facility] [place] [address] PCP - General Internal Medicine 05/01/17 Marquise Javed [address] [facility] [address] [place] [address] Cardiology 05/01/21 Team Status: Active Member Role Status Dates Dr. Ken Contreras MD Family Provider Active Dr. Ken Contreras MD Primary Care Provider Active Team Status: Inactive Member Role Status Dates Dr. Ken Contreras MD Primary Care Provider Active Taylor Arce Active Dr. Zane Mcpherson MD Attending Provider, Referring Pro vider Active Team Status: Inactive Member Role Status Dates Dr. Ken Contreras MD Primary Care Provider Active Dr. Arturo Greer MD Emergency Provider Active [employer] Principal Relationship Specialty Start Date End Date Ken Contreras MD [address] [facility] [place] [address] PCP - General Internal Medicine 05/01/17 Marquise Javed [address] [place] [address] Cardiology 05/01/21 [employer] Principal Relationship Specialty Start Date End Date Ken Contreras MD [address] [facility] [place] [address] PCP - General Internal Medicine 05/01/17 Marquise Javed [address] [facility] [address] [place] [address] Cardiology 05/01/21 Team Status: Inactive Member Role Status Dates Dr. Ken Contreras MD Primary Care Provider, Refer ring Provider Active Dr. Jaswant Miller DO Attending Provider Active Team Status: Inactive Member Role Status Dates Dr. Ken Contreras MD Primary Care Provider, Refer ring Provider Active Amanda Daugherty MANAGER OF [employer] SALES, MANAGER [employer] SALES-C Attending Provider Active Team Status: Inactive Member Role Status Dates Dr. Ken Contreras MD Primary Care Provider Active Amanda Daugherty MANAGER OF [employer] SALES, MANAGER OF [employer] SALES-C Attending Provider, Referring P suzette Active Team Status: Inactive Member Role Status Dates Dr. Ken Contreras MD Primary Care Provider Active Dr. Janett Her MD Emergency Provider Active [employer] Principal Relationship Specialty Start Date End Date Ken Contreras MD [address] [facility] [place] [address] PCP - General Internal Medicine 05/01/17 Marquise Javed [address] [facility] [address] [id number] Cardiology 05/01/21 Team Status: Inactive Member Role Status Dates Dr. Ken Contreras MD Primary Care Provider Active Dr. Janett Her MD Attending Provider, Emergency Provider Active Team Status: Inactive Member Role Status Dates Dr. Ken Contreras MD Primary Care Provider Active Dr. Teri Lozano DO Emergency Provider Active [employer] Principal Relationship Specialty Start Date End Date Ken Contreras MD [address] [facility] [place] [address] PCP - General Internal Medicine 05/01/17 Marquise Javed [address] [facility] [address] [place] [address] Cardiology 05/01/21 [employer] Principal Relationship Specialty Start Date End Date Ken Contreras MD [address] [place] [address] PCP - General Internal Medicine 05/01/17 Marquise Javed [address] [address] Cardiology 05/01/21 K [employer] School Principal Relationship Specialty Start Date End Date Ken Contreras MD [address] [facility] [place] [address] PCP - General Internal Medicine 05/01/17 Marquise Javed MD [address] [facility] [address] [address] Cardiology 05/01/21 [employer] School Principal Relationship Specialty Start Date End Date Ken Contreras MD [address] [place] [address] PCP - General Internal Medicine 05/01/17 Marquise Javed MD [address] [address] Cardiology 05/01/21 Team Status: Inactive Member Role Status Dates Dr. Ken Contreras MD Primary Care Provider, Refer ring Provider Active Taylor Arce Attending Provider Active [employer] Principal Relationship Specialty Start Date End Date Ken Contreras MD [address] [place] [address] PCP - General Internal Medicine 05/01/17 Marquise Javed MD [address] [address] Cardiology 05/01/21 [employer] Principal Relationship Specialty Start Date End Date Ken Contreras MD [address] [place] [address] PCP - General Internal Medicine 05/01/17 Marquise Javed MD [address] [place] [address] Cardiology 05/01/21 Maddie Raphael, RN [address] [facility] [place] [address] Primary Care Franchise Development Manager 10/06/23 [employer] Principal Relationship Specialty Start Date End Date Ken Contreras MD [address] [facility] [place] [address] PCP - General Internal Medicine 05/01/17 Marquise Javed MD [address] [place] [address] Cardiology 05/01/21 Maddie Raphael, RN [address] [facility], [place] [address] Primary Care Franchise Development Manager 10/06/23 [employer] Principal Relationship Specialty Start Date End Date Ken Contreras MD [address] [facility] [place] [address] PCP - General Internal Medicine 05/01/17 Marquise Javed MD [address] [place] [address] Cardiology 05/01/21 Maddie Raphael, RN [address] [facility], [place] [id number] Primary Care Franchise Development Manager 10/06/23 [employer] Principal Relationship Specialty Start Date End Date Ken Contreras MD [address] [facility] [place] [address] PCP - General Internal Medicine 05/01/17 Marquise Javed MD [address] [place] [address] Cardiology 05/01/21 Maddie Raphael, RN [address] [place], [place] [id number] Primary Care Franchise Development Manager 10/06/23 [employer] School Principal Relationship Specialty Start Date End Date Ken Contreras MD [address] [facility] [place] [address] PCP - General Internal Medicine 05/01/17 Marquise Javed MD [address] [place] [address], [place] [address] Cardiology 05/01/21 Maddie Raphael, DIONTE [address] [place] [address] Primary Care Franchise Development Manager 10/06/23 11/04/23 [employer] Principal Relationship Specialty Start Date End Date Ken Contreras MD [address] [facility] [place] [address] PCP - General Internal Medicine 05/01/17 Marquise Javed MD [address] [place] [address] Cardiology 05/01/21 Maddie Raphael, RN [address] [place] [address] Primary Care Franchise Development Manager 10/06/23 11/04/23 K [employer] Principal Relationship Specialty Start Date End Date Ken Contreras MD [address] [facility] [place] [address] PCP - General Internal Medicine 05/01/17 Marquise Javed MD [address] [place] [address] Cardiology 05/01/21 K [employer] Principal Relationship Specialty Start Date End Date Ken Contreras MD [address] [facility] [place] [address] PCP - General Internal Medicine 05/01/17 Marquise Javed MD [address] [place] [address] Cardiology 05/01/21 K [employer] Principal Relationship Specialty Start Date End Date Ken Contreras MD [address] [place] [address] PCP - General Internal Medicine 05/01/17 Marquise Javed MD [address] [place] [address], [place] [address] Cardiology 05/01/21 K 8 [employer] Principal Relationship Specialty Start Date End Date Ken Contreras MD [address] [place] [address] PCP - General Internal Medicine 05/01/17 Marquise Javed MD [address] [place] [address] Cardiology 05/01/21 K 8 School Principal Relationship Specialty Start Date End Date Ken Contreras MD [address] [place] [address] PCP - General Internal Medicine 05/01/17 Marquise Javed MD [address] [address] Cardiology 05/01/21 K 8 School Principal Relationship Specialty Start Date End Date Ken Contreras MD [address] [place] [address] PCP - General Internal Medicine 05/01/17 Marquise Javed MD [address] [address] Cardiology 05/01/21 K 8 School Principal Relationship Specialty Start Date End Date Ken Contreras MD [address] [place] [address] PCP - General Internal Medicine 05/01/17 Marquise Javed MD [address] [address] Cardiology 05/01/21 K 8 School Principal Relationship Specialty Start Date End Date Ken Contreras MD [address] [place] [address] PCP - General Internal Medicine 05/01/17 Marquise Javed MD [address] [address] Cardiology 05/01/21 K 8 School Principal Relationship Specialty Start Date End Date Ken Contreras MD [address] [place] [address] PCP - General Internal Medicine 05/01/17 Marquise Javed MD [address] [address] Cardiology 05/01/21 K 8 School Principal Relationship Specialty Start Date End Date Ken Contreras MD [address] [place] [address] PCP - General Internal Medicine 05/01/17 Marquise Javed MD [address] [address] Cardiology 05/01/21 K 8 School Principal Relationship Specialty Start Date End Date Ken Contreras MD [address] [place] [address] PCP - General Internal Medicine 05/01/17 Marquise Javed MD [address] [address] Cardiology 05/01/21 K 8 School Principal Relationship Specialty Start Date End Date Ken Contreras MD [address] [place] [address] PCP - General Internal Medicine 05/01/17 Marquise Javed MD [address] [address] Cardiology 05/01/21 K 8 School Principal Relationship Specialty Start Date End Date Ken Contreras MD [address] [place] [address] PCP - General Internal Medicine 05/01/17 Marquise Javed MD [address] [address] (Work) Cardiology 05/01/21 K 8 School Principal Relationship Specialty Start Date End Date Ken Contreras MD [address] [place] [address] PCP - General Internal Medicine 05/01/17 Marquise Javed MD [address] [place] [address] Cardiology 05/01/21 K 8 School Principal Relationship Specialty Start Date End Date Ken Contreras MD [address] [place] [address] PCP - General Internal Medicine 05/01/17 Marquise Javed MD [address] [address] Cardiology 05/01/21 K 8 School Principal Relationship Specialty Start Date End Date Ken Contreras MD [address] [place] [address] PCP - General Internal Medicine 05/01/17 Marquise Javed MD [address] [address] Cardiology 05/01/21 K 8 School Principal Relationship Specialty Start Date End Date Ken Contreras MD [address] [place] [address] PCP - General Internal Medicine 05/01/17 Marquise Javed MD [address] [place] [address] Cardiology 05/01/21 K 8 School Principal Relationship Specialty Start Date End Date Ken Contreras MD [address] [facility] [place] [address] PCP - General Internal Medicine 05/01/17 Marquise Javed MD [address] [place] [address] Cardiology 05/01/21 K 8 School Principal Relationship Specialty Start Date End Date Ken Contreras MD [address] [facility] [place] [address] PCP - General Internal Medicine 05/01/17 Marquise Javed MD [address] [place] [address] Cardiology 05/01/21 Dia Lopez, TITLE INSURANCE SALES REPRESENTATIVE.MICROBIOLOGICAL LABORATORY TECHNICIAN [address] [facility] [place] [address] [employer] Internal Medicine 08/15/24 K 8 School Principal Relationship Specialty Start Date End Date Ken Contreras MD [address] [facility] [place] [address] PCP - General Internal Medicine 05/01/17 Marquise Javed MD [address] [place] [address] Cardiology 05/01/21 Dia Lopez, TITLE INSURANCE SALES REPRESENTATIVE.MICROBIOLOGICAL LABORATORY TECHNICIAN [address] [facility] [place] [address] [employer] Internal Medicine 08/15/24 K 8 School Principal Relationship Specialty Start Date End Date Ken Contreras MD [address] [place] [address] PCP - General Internal Medicine 05/01/17 Marquise Javed MD [address] [place] [address] Cardiology 05/01/21 Dia Lopez, TITLE INSURANCE SALES REPRESENTATIVE.MICROBIOLOGICAL LABORATORY TECHNICIAN [address] [place] [address] [employer] Internal Medicine 08/15/24 K 8 School Principal Relationship Specialty Start Date End Date Ken Contreras MD [address] [place] [address] PCP - General Internal Medicine 05/01/17 Marquise Javed MD [address] [place] [address] Cardiology 05/01/21 Dia Lopez, TITLE INSURANCE SALES REPRESENTATIVE.MICROBIOLOGICAL LABORATORY TECHNICIAN [address] [place] [address] [employer] Internal Medicine 08/15/24 K 8 School Principal Relationship Specialty Start Date End Date Ken Contreras MD [address] [facility] [place] [address] PCP - General Internal Medicine 05/01/17 Marquise Javed MD [address] [place] [address] Cardiology 05/01/21 Dia Lopez, TITLE INSURANCE SALES REPRESENTATIVE.MICROBIOLOGICAL LABORATORY TECHNICIAN [address] [facility] [place] [address] [employer] Internal Medicine 08/15/24 K 8 School Principal Relationship Specialty Start Date End Date Ken Contreras MD [address] [facility] [place] [address] PCP - General Internal Medicine 05/01/17 Marquise Javed MD [address] [place] [address] Cardiology 05/01/21 Dia Lopez, TITLE INSURANCE SALES REPRESENTATIVE.MICROBIOLOGICAL LABORATORY TECHNICIAN [address] [facility] [place] [address] [employer] Internal Medicine 08/15/24 K 8 School Principal Relationship Specialty Start Date End Date Ken Contreras MD [address] [facility] [place] [address] PCP - General Internal Medicine 05/01/17 Marquise Javed MD [address] [place] [address] Cardiology 05/01/21 Dia Lopez, TITLE INSURANCE SALES REPRESENTATIVE.MICROBIOLOGICAL LABORATORY TECHNICIAN [address] [facility] [place] [address] [employer] Internal Medicine 08/15/24 Najma John, senior paralegalHousefellow 11/01/24 K 8 School Principal Relationship Specialty Start Date End Date Ken Contreras MD [address] [facility] [place] [address] PCP - General Internal Medicine 05/01/17 Marquise Javed MD [address] [place] [address] Cardiology 05/01/21 Dia Lopez, TITLE INSURANCE SALES REPRESENTATIVE.MICROBIOLOGICAL LABORATORY TECHNICIAN [address] [place] [address] [employer] Internal Medicine 08/15/24 Najma John, senior paralegalHousefellow 11/01/24 K 8 School Principal Relationship Specialty Start Date End Date Ken Contreras MD [address] [place] [address] PCP - General Internal Medicine 05/01/17 Marquise Javed MD [address] [place] [address] Cardiology 05/01/21 Dia Lopez, TITLE INSURANCE SALES REPRESENTATIVE.MICROBIOLOGICAL LABORATORY TECHNICIAN [address] [place] [address] [employer] Internal Medicine 08/15/24 Najma John, senior paralegalHousefellow 11/01/24 K 8 School Principal Relationship Specialty Start Date End Date Ken Contreras MD [address] [place] [address] PCP - General Internal Medicine 05/01/17 Marquise Javed MD [address] [place] [address] Cardiology 05/01/21 Dia Lopez, TITLE INSURANCE SALES REPRESENTATIVE.MICROBIOLOGICAL LABORATORY TECHNICIAN [address] [place] [address] [employer] Internal Medicine 08/15/24 Najma John, senior paralegalHousefellow 11/01/24 K 8 School Principal Relationship Specialty Start Date End Date Ken Contreras MD [address] [facility] [place] [address] PCP - General Internal Medicine 05/01/17 Marquise Javed MD [address] [facility] [place], [place] [address] Cardiology 05/01/21 Dia Lopez, TITLE INSURANCE SALES REPRESENTATIVE.[facility] [address] [facility] [place], [place] [address] [facility] Internal Medicine 08/15/24 Najma John, senior paralegalHousefellow 11/01/24 Team Status: Active Member Role Status Dates Dr. Ken Contreras MD Primary Care Provider Active Team Status: Inactive Member Role Status Dates Dr. Ken Contreras MD Primary Care Provider Active Start: August 08, 2024 End: August 08, 2024 Dr. Shad Hunter MD Attending Provider Active Start: August 08, 2024 End: August 08, 2024 Dr. Shad Hunter MD Emergency Provider Active Start: August 08, 2024 End: August 08, 2024 Team Status: Active Member Role Status Dates Dr. Ken Contreras MD Primary Care Provider Active Start: August 26, 2024 Dr. Ken Contreras MD Attending Provider Active Start: August 26, 2024 Team Status: Inactive Member Role Status Dates Dr. Ken Contreras MD Primary Care Provider Active Start: September 05, 2024 End: September 05, 2024 Dr. Patrice Brady DO Attending Provider Active Start: September 05, 2024 End: September 05, 2024 Dr. Patrice Brady DO Emergency Provider Active Start: September 05, 2024 End: September 05, 2024 Team Status: Inactive Member Role Status Dates Dr. Ken Contreras MD Primary Care Provider Active Start: September 23, 2024 End: September 23, 2024 Dr. Zane Mcpherson MD Attending Provider Active S tart: September 23, 2024 End: September 23, 2024 Dr. Zane Mcpherson MD Referring Provider Active S tart: September 23, 2024 End: September 23, 2024 Team Status: Inactive Member Role Status Dates Dr. Ken Contreras MD Primary Care Provider Active Start: October 12, 2024 End: October 12, 2024 Dr. Jann Mello MD Attending Provider Active Start: October 12, 2024 End: October 12, 2024 Dr. Jann Mello MD Referring Provider Active Start: October 12, 2024 End: October 12, 2024 Team Status: Inactive Member Role Status Dates Dr. Ken Contreras MD Primary Care Provider Active Start: November 11, 2024 End: November 11, 2024 Latonya STEVE PA Attending Provider Active Start: November 11, 2024 End: November 11, 2024 Latonya Vargas PA, PA Referring Provider Active Start: November 11, 2024 End: November 11, 2024 K [employer] Principal Relationship Specialty Start Date End Date Ken Contreras MD [address] [place], [place] [address] PCP - General Internal Medicine 05/01/17 Marquise Javed MD [address] [id number] Cardiology 05/01/21 Dia Lopez, TITLE INSURANCE SALES REPRESENTATIVE.MICROBIOLOGICAL LABORATORY TECHNICIAN [address] [place], [place] [address] [employer] Internal Medicine 08/15/24 Najma John senior paralegalHousefellow 11/01/24 K 8 School Principal Relationship Specialty Start Date End Date Ken Contreras MD [address] [place] [address] PCP - General Internal Medicine 05/01/17 Marquise Javed MD [address] [place] [address] Cardiology 05/01/21 Dia Lopez, TITLE INSURANCE SALES REPRESENTATIVE.MICROBIOLOGICAL LABORATORY TECHNICIAN [address] [facility] [place] [address] [employer] Internal Medicine 08/15/24 Najma John, senior paralegalHousefellow 11/01/24 K 8 School Principal Relationship Specialty Start Date End Date Ken Contreras MD [address] [facility] [place] [address] PCP - General Internal Medicine 05/01/17 Marquise Javed MD [address] [place] [address] Cardiology 05/01/21 Dia Lopez, TITLE INSURANCE SALES REPRESENTATIVE.MICROBIOLOGICAL LABORATORY TECHNICIAN [address] [facility] [place] [address] [employer] Internal Medicine 08/15/24 Najma John senior paralegalHousefellow 11/01/24 K 8 School Principal Relationship Specialty Start Date End Date Ken Contreras MD [address] [facility] [place] [address] PCP - General Internal Medicine 05/01/17 Marquise Javed MD [address] [place] [address] Cardiology 05/01/21 Dia Lopez, TITLE INSURANCE SALES REPRESENTATIVE.MICROBIOLOGICAL LABORATORY TECHNICIAN [address] [facility] [place] [address] [employer] Internal Medicine 08/15/24 Najma John, senior paralegalHousefellow 11/01/24 K 8 School Principal Relationship Specialty Start Date End Date Ken Contreras MD [address] [facility] [place] [address] PCP - General Internal Medicine 05/01/17 Marquise Javed MD [address] [place] [address] Cardiology 05/01/21 Dia Lopez, TITLE INSURANCE SALES REPRESENTATIVE.MICROBIOLOGICAL LABORATORY TECHNICIAN [address] [facility] [place] [address] [employer] Internal Medicine 08/15/24 Najma John RN House[employer] 11/01/24 K 8 School Principal Relationship Specialty Start Date End Date Ken Contreras MD [address] [place] [address] PCP - General Internal Medicine 05/01/17 Marquise Javed MD [address] [place] [address] Cardiology 05/01/21 Dia Lopez, TITLE INSURANCE SALES REPRESENTATIVE.MICROBIOLOGICAL LABORATORY TECHNICIAN [address] [place] [address] [employer] Internal Medicine 08/15/24 Najma John senior paralegalHousefellow 11/01/24 K 8 School Principal Relationship Specialty Start Date End Date Ken Contreras MD [address] [place] [address] PCP - General Internal Medicine 05/01/17 Marquise Javed MD [address] [place] [address] Cardiology 05/01/21 Dia Lopez, TITLE INSURANCE SALES REPRESENTATIVE.MICROBIOLOGICAL LABORATORY TECHNICIAN [address] [place] [address] [employer] Internal Medicine 08/15/24 K 8 School Principal Relationship Specialty Start Date End Date Ken Contreras MD [address] [place] [address] PCP - General Internal Medicine 05/01/17 Marquise Javed MD [address] [place] [address] Cardiology 05/01/21 Dia Lopez, TITLE INSURANCE SALES REPRESENTATIVE.MICROBIOLOGICAL LABORATORY TECHNICIAN [address] [place] [address] [employer] Internal Medicine 08/15/24 K 8 School Principal Relationship Specialty Start Date End Date Ken Contreras MD [address] [place] [address] PCP - General Internal Medicine 05/01/17 Marquise Javed MD [address] [place] [address] Cardiology 05/01/21 Dia Lopez, TITLE INSURANCE SALES REPRESENTATIVE.MICROBIOLOGICAL LABORATORY TECHNICIAN [address] [facility] [place] [address] [employer] Internal Medicine 08/15/24 K 8 School Principal Relationship Specialty Start Date End Date Ken Contreras MD [address] [place] [address] PCP - General Internal Medicine 05/01/17 Marquise Javed MD [address] [address] Cardiology 05/01/21 Dia Lopez, TITLE INSURANCE SALES REPRESENTATIVE.MICROBIOLOGICAL LABORATORY TECHNICIAN [address] [facility] [place] [address] [employer] Internal Medicine 08/15/24 Team Status: Inactive Member Role Status Dates Dr. Ken Contreras MD Primary Care Provider Active Start: December 23, 2024 End: December 23, 2024 Dr. Zane Mcpherson MD Attending Provider Active S tart: December 23, 2024 End: December 23, 2024 Team Status: Inactive Member Role Status Dates Dr. Ken Contreras MD Primary Care Provider Active Start: February 15, 2025 End: February 15, 2025 Dr. Av Valencia MD Referring Provider Active Sta rt: February 15, 2025 End: February 15, 2025 Dr. Av Valencia MD Emergency Provider Active Sta rt: February 15, 2025 End: February 15, 2025 K 8 [employer] Principal Relationship Specialty Start Date End Date Ken Contreras MD [address] [place], [place] [address] PCP - General Internal Medicine 05/01/17 Marquise Javed MD [address] [place] [address] Cardiology 05/01/21 Dia Lopez, TITLE INSURANCE SALES REPRESENTATIVE.[facility] [address] [place] [address] [employer] Internal Medicine 08/15/24 Goals (unrecognized section and content) Goals may be documented in a n alternate sectionGoals may be documented in an alternate sectionGoals may be documented in an alternate sectionGoals may be documented in an alternate sectionGoals may be documented in an alternate sectionGoals may be documented in an alternate sectionGoals may be documented in an alternate sectionGoals may be documented in an alternate sectionGoals may be documented in an alternate sectionGoals may be documented in an alternate sectionGoals may be documented in an alternate section INFORMATION SOURCE (unrecogn ized section and content) DATE CREATED AUTHOR 01/30/2024 [facility] DATE CREATED AUTHOR AUTHOR'S ORGANIZ ATION 06/08/2024 [facility] DATE CREATED AUTHOR AUTHOR'S ORGANIZ ATION 03/03/2025 [facility] DATE CREATED AUTHOR AUTHOR'S ORGANIZ ATION 03/07/2025 [facility] FOR RECORDS PERTAINING TO PATIENTS WHO ARE OR HAVE BEEN ENROLLED IN A CHEMICAL DEPENDENCY/SUBSTANCEABUSE PROGRAM, SOME INFORMATION MAY BE OMITTED. This clinical summary was aggregated from multiple sources. Caution should be exercised in using it in the provision of clinical care. This summary normalizes information from multiple sources, and as a consequence, information in this document may materially change the coding, format and clinical context of patient data. In addition, data may be omitted in some cases. CLINICAL DECISIONS SHOULD BE BASED ON THE PRIMARY CLINICAL RECORDS. [facility]. provides no warranty or guarantee of the accuracy or completeness of information in this document.
--- NOTE | 2025-03-08 17:19 | STRESSREP ---
Stress Test Report Pharmacologic myocardial perfusion stress test. 89-year-old lady with a history of dyspnea on exertion Resting EKG demonstrates sinus rhythm with a rate of 66 bpm. Resting blood pressure is 122/70 mmHg. 0.4 mg of regadenoson was infused per usual protocol followed by rapid intravenous saline flush injection. Continuous EKG monitoring was performed. The maximum heart rate was 77 bpm which was 58% of max impacted heart rate the maximum workload was 1 metabolic equivalent. At rest there were no ST or T wave changes noted to suggest ischemia and at peak infusion nonspecific ST changes were noted which did not meet the criteria for ischemia. No clinical angina is noted. The final blood pressure was 128/68 mmHg. Myocardial perfusion protocol. 11.8 mCi of technetium 99m sestamibi was injected at rest. 0.4 mg of regadenoson was infused per usual protocol. At peak infusion 33 mCi of technetium 99m sestamibi was injected stress images were obtained stress and rest images were reconstructed and compared in the short axis vertical long and horizontal long axis. Gated images were also obtained. Perfusion SPECT analysis: Review of the stress images demonstrate normal uptake of tracer noted in all areas of the myocardium. The resting images similar demonstrated normal uptake of tracer noted in all areas of the myocardium. No areas of reversibility are noted to suggest ischemia and no previous infarct is noted. Gated SPECT analysis: The gated ejection fraction is 85%. Conclusion: Normal pharmacologic myocardial perfusion stress test. Preserved ejection fraction.
== END | disposition home or self-care (01) ==
LOC: CVS 07:28
PROVIDERS: PCP Internal Medicine; Referring Provider Internal Medicine; Visit Provider Internal Medicine
DX: R06.09 Other forms of dyspnea (principal)
CPT/HCPCS: 78452; 93017; A9500; A4216; J2785

== ENCOUNTER 2025-04-16 18:44 | Inpatient (IN) | payer MEDICARE, BC, SELFPAY ==
[2025-04-16 18:46] VITALS: BP 147/70; PULSE 60; RESP 16; TEMP 36.4; O2SAT 95; BMI 28.7
--- OUTSIDE RECORDS SUMMARY | 2025-04-16 20:09 | XMS RPT_ITS | CCD ---
Author Organization [facility] Care Team Providers Care Industrial Engineering Director Name Role Phone Jayde Greenberg Unavailable Unavailable YorkCheriseJayde L Unavailable Unavailable Yensho MULTILITH OPERATOR, Taylor A Unavailable Unavailab le Rajesh TODD, Taylor A Unavailable Unavailab Ken Maldonado MD Primary Care Provider Moodiscaroline, Marquise F Unavailable Dr. Ken Contreras Primary Care Provider Dr. Ken Contreras Referring Provider Sam STEVE, [place] Latonya Valdez Attending Provider Dr. Marquise Javed Attending Provider Dr. Marquise Javed Referring Provider Dr. Guzman Jolly Referring Provider Dr. Guzman Jolly Other Provider Dr. Epifanio Witt Attending Provider Ken Contreras MD Primary Care Provider Moodispaw, Marquise F Unavailable Tello, Marquise F Unavailable Ken Contreras MD Primary Care Provider Moodiscaroline, Marquise F Unavailable Dr. Ken Contreras Primary Care Provider Dr. Ken Contreras Referring Provider Taylor Arce Attending Provider Unavailable Radha BEATER LEAD, BEATER LEAD-C Irene Attending Provider Radha BEATER LEAD, BEATER LEAD-C Irene Referring Provider Dr. Ken Contreras Primary Care Provider Dr. Zane Mcpherson Attending Provider Dr. Zane Mcpherson Referring Provider Dr. Ken Contreras Primary Care Provider Dr. Ken Contreras Referring Provider Dr. Jaswant Miller Attending Provider Dat BEATER LEAD, BEATER LEAD-C Amanda Attending Provider Tello TONEY, Marquise Ivey Unavailable Cleopatra, Dr. Rogers Primary Care Provider Cleopatra, Dr. Rogers Referring Provider Taylor Arce Attending Provider Unavailable Dat BEATER LEAD, BEATER LEAD-C Amanda Attending Provider Rpi Davenport RN, Maddie Unavailable Rip Davenport RN, Maddie Unavailable [phone] Ken Contreras MD Primary Care Provider AILYN [...] Unavailable CONTRERAS, TRUONG Primary Care Unavailable Hussain IT DIRECTOR.TOY CONSULTANT, Dia M Unavailable Wocj RAPP, Najma Hudson Unavailable Jade Contreras MD, Dr. Rogers Primary Care Provider Dale TONEY, Dr. Kulkarni Attending Provider Dale TONEY, Dr. Kulkarni Emergency Provider Cleopatra TONEY, Dr. Rogers Attending Provider Jose Antonio HARRIS, Dr. Ibrahim Attending Provider Jose Antonio HARRIS, Dr. Ibrahim Emergency Provider Vida TONEY, Dr. Degroot Attending Provider Vida TONEY, Dr. Degroot Referring Provider Riaz TONEY, Dr. Forte Attending Provider Riaz TONEY, Dr. Forte Referring Provider Latonya Chen Attending Provider Latonya Chen Referring Provider Dora RAPP, Najma Hudson Unavailable Jade Contreras MD, Dr. Rogers Primary Care Provider iVda TONEY, Dr. Degroot Attending Provider Erik TONEY, Dr. Ley Referring Provider Erik TONEY, Dr. Ley Emergency Provider Cleopatra TONEY, Dr. Rogers Primary Care Provider Erik TONEY, Dr. Ley Attending Provider Cleopatra TONEY, Dr. Rogers Attending Provider Cleopatra TONEY, Dr. Rogers Referring Provider Cleopatra TONEY, Dr. Rogers Other Provider Tyrone TONEY, Dr. Barraza Attending Provider Tyrone TONEY, Dr. Barraza Attending Provider Sam STEVE, Latonya Valdez Attending Provider Ken Contreras Primary Care Unavailable Ken Contreras Attending Unavailable Vida, [place] Referring Unavailable Vida, Zane Attending Unavailable Contreras, Ken Primary Care Unavailable Vida, [place] Referring Unavailable Vida, Zane Attending Unavailable Contreras, Ken Primary Care Unavailable Contreras, Ken Consulting Unavailable Vida, [place] Attending Unavailable Contreras, Ken Primary Care Unavailable Contreras, Ken Referring Unavailable Vida, Zane Attending Unavailable Contreras, Ken Primary Care Unavailable Vida, [place] Attending Unavailable Contreras, Ken Primary Care Unavailable Contreras, Ken Primary Care Unavailable Latonya Chen Attending Unavail able Contreras, Ken Referring Unavailable Vida, [place] Referring Unavailable Vida, [place] Attending Unavailable Contreras, Ken Primary Care Unavailable Vida, Zane Attending Unavailable Contreras, Ken Primary Care Unavailable Contreras, Ken Referring Unavailable Riaz, Jann Referring Unavailable Riaz, Jann Attending Unavailable Contreras, Ken Primary Care Unavailable Contreras, Ken Primary Care Unavailable Latonya Chen Referring Unavail able Latonya Chen Attending Unavail able Valencia, Av Referring Unavailable Valencia, Av Attending Unavailable Contreras, Ken Primary Care Unavailable Shad Hunter Attending Unavailable Contreras, Ken Primary Care Unavailable Patrice Brady Attending Unavailable Contreras, Ken Primary Care Unavailable Contreras, Ken Attending Unavailable Contreras, Ken Primary Care Unavailable Contreras, Ken Referring Unavailable Kaya Cartwright Referring Unavailable Kaya Cartwright Attending Unavailable Contreras, Ken Primary Care Unavailable KAYA CARTWRIGHT JR Attending Unavailable AILYN BONNER Referring Unavailable CONTRERAS, TRUONG Primary Care Unavailable GANTA, CAMI Referring Unavailable CONTRERAS, TRUONG Primary Care Unavailable GANTA, CAMI Referring Unavailable CONTRERAS, TRUONG Primary Care Unavailable JACKIE LAINEZ Attending Unavailable IRIS DELEON Referring Unavailable CONTRERAS, TRUONG Primary Care Unavailable ASHELY MILLER Attending Unavailable DIA LOPEZ Referring Unavailable CONTRERAS, TRUONG Primary Care Unavailable CONTRERAS, TRUONG Referring Unavailable CONTRERAS, TRUONG Primary Care Unavailable ASHELY MILLER Attending Unavailable CONTRERAS, TRUONG Primary Care Unavailable DIA LOPEZ Attending Unavailable CLEOPATRA, KEN Brody Primary Care Unavailable JYOTSNA DONOHUE Attending Unavailable CONTRERAS, KEN Brody Primary Care Unavailable JACKIE LAINEZ Attending Unavailable IRIS DELEON Referring Unavailable CONTRERAS, KEN Brody Primary Care Unavailable JACKIE LAINEZ Attending Unavailable IRIS DELEON Referring Unavailable CONTRERAS, KEN Brody Primary Care Unavailable IRIS DELEON Referring Unavailable CONTRERAS, KEN Brody Primary Care Unavailable DIAN RODAS Attending Unavailable CONTRERAS, KEN Brody Referring Unavailable CONTRERAS, KEN Brody Primary Care Unavailable CONTRERAS, KEN Brody Attending Unavailable CONTRERAS, KEN Brody Primary Care Unavailable CONTRERAS, KEN Brody Attending Unavailable CONTRERAS, KEN Brody Primary Care Unavailable CONTRERAS, KEN Brody Referring Unavailable CONTRERAS, KEN Brody Primary Care Unavailable CAMI MARS Referring Unavailable CONTRERAS, KEN Bordy Primary Care Unavailable IRIS DELEON Referring Unavailable CONTRERAS, KEN Brody Primary Care Unavailable CONTRERAS, KEN Brody Referring Unavailable CONTRERAS, KEN Brody Primary Care Unavailable CLEOPATRA, KEN Brody Attending Unavailable CLEOPATRA, KEN Brody Primary Care Unavailable DIA LOPEZ Referring Unavailable CLEOPATRA, KEN Brody Primary Care Unavailable RHODA ALCAZAR Attending Unavailable DIA LOPEZ Referring Unavailable CLEOPATRA, KEN Brody Primary Care Unavailable DIA LOPEZ Attending Unavailable CLEOPATRA, KEN Brody Primary Care Unavailable CLEOPATRA, KEN Brody Attending Unavailable CLEOPATRA, KEN Brody Primary Care Unavailable AILYN BONNER Attending Unavailable AILYN BONNER Referring Unavailable CLEOPATRA, KEN Brody Primary Care Unavailable CAMI MARS Attending Unavailable CLEOPATRA, KEN Brody Primary Care Unavailable AILYN BONNER Attending Unavailable AILYN BONNER Referring Unavailable CONTRERAS, KEN Brody Primary Care Unavailable CONTRERAS, KEN Brody Primary Care Unavailable CLEOPATRA, KEN Brody Attending Unavailable KAYA CARTWRIGHT JR Referring Unavailable CONTRERAS, KEN Brody Primary Care Unavailable CONTRERAS, KEN Brody Referring Unavailable CONTRERAS, KEN Brody Primary Care Unavailable DIA LOPEZ Attending Unavailable CLEOPATRA, KEN Brody Primary Care Unavailable JORGE JORDAN Referring Unavailable CONTRERAS, TRUONG Primary Care Unavailable CONTRERAS, TRUONG Primary Care Unavailable JORGE JORDAN Attending Unavailable RUBEN FERRARA Attending Unavailable CONTRERAS, TRUONG Referring Unavailable CONTRERAS, TRUONG Primary Care Unavailable CAMI MARS Referring Unavailable CONTRERAS, TRUONG Primary Care Unavailable CAMI MARS Attending Unavailable CONTRERAS, TRUONG Referring Unavailable CONTRERAS, TRUONG Primary Care Unavailable Allergies Allergy Classification Reported Allergen(s) Allergy Type Date of Onset Reaction(s) Facility (4 sources) ciprofloxacin Drug Allergy 11-28-19 17 itching [facility] Work Phone: (20 sources) penicillAMINE; Translations: [PENICILLAMINE] Drug Allergy 11-28-19 17 Unknown [facility] Work Phone: (20 sources) Shellfish; Translations: [SHELLFISH] drug allergy 03-17-20 05 Shortness of Breath [facility] Work Phone: (4 sources) SULFACLEANSE 8/4 drug allergy 11-28-19 17 upset stomach [facility] Work Phone: (9 sources) Budesonide / formoterol; Translations: [BUDESONIDE-FORMOT EMA] Drug Allergy 11-28-19 10 Intolerance [facility] (20 sources) Cat; Translations: [CATS] Propensity to adverse reactions 12-20-19 06 [facility] Work Phone: (20 sources) Ciprofloxacin; Translations: [CIPROFLOXACIN] Drug Allergy 03-17-20 05 Itching [facility] (20 sources) diphenhydrAMINE; Translations: [DIPHENHYDRAMINE HCL] Drug Allergy 10-05-19 18 Rash [facility] (20 sources) Dust; Translations: [DUST] Propensity to adverse reactions 12-20-19 06 [facility] Work Phone: (20 sources) Ketamine; Translations: [KETAMINE] Drug Allergy 04-07-20 19 Unknown [facility] (20 sources) Mold Extract; Translations: [MOLD] Drug Allergy 08-06-20 06 [facility] (18 sources) Penicillins; Translations: [PENICILLINS] Propensity to adverse reactions 03-17-20 05 Rash [facility] (20 sources) Shellfish; Translations: [SHELLFISH CONTAINING PRODUCTS] Drug Allergy 11-28-19 17 Unknown [facility] (20 sources) Sulfonamides (Antibiotic); Translations: [SULFA (SULFONAMIDE ANTIBIOTICS)] Drug Intolerance 12-15-19 12 GI Upset [facility] (20 sources) tetanus toxoid vaccine, inactivated; Translations: [TETANUS TOXOID ADSORBED] Drug Allergy 10-14-19 08 Intolerance [facility] (20 sources) tiotropium; Translations: [TIOTROPIUM BROMIDE] Drug Allergy 04-13-20 08 Intolerance [facility] (20 sources) Tree's [Other] Propensity to adverse reactions 12-20-19 06 [facility] Work Phone: (14 sources) diphenhydrAMINE Drug Allergy 10-01-19 22 [facility] (15 sources) Shellfish; Translations: [shellfish derived] Allergy to substance 10-01-19 22 Anaphylaxis [facility] (14 sources) tiotropium Drug Allergy 10-01-19 22 Other [facility] (20 sources) Penicillins Propensity to adverse reactions 03-17-20 05 [facility] (20 sources) Budesonide / formoterol Drug Allergy 11-28-19 10 Intolerance [facility] (12 sources) Penicillins Allergy to substance 08-19-20 22 Hives [facility] (12 sources) Sulfonamides (Antibiotic) Allergy to substance 08-19-20 22 Upset Stomach [facility] (20 sources) Penicillins Propensity to adverse reactions 03-17-20 05 [facility] (1 source) Ciprofloxacin Drug Allergy 02-16-20 [facility] (1 source) diphenhydrAMINE Drug Allergy 02-16-20 [facility] (1 source) Ketamine Drug Allergy 02-16-20 [facility] (1 source) Penicillins Drug allergy (disorder) 02-16-20 [facility] (1 source) Sulfonamides (Antibiotic) Drug allergy (disorder) 02-16-20 [facility] (1 source) tiotropium Drug Allergy 02-16-20 [facility] Medications Current Medications Medication Drug Class(es) [...] Start: 11-17-2016 take 2 tablets by mo uth at bedtime Acetaminophen 325 MG tablet Active 650 mg PO AT BEDTIME November 17, 2016 12:00am pain Start: 11-17-2016 take 650 mg by mouth at bedtim e Acetaminophen Active 650 MG PO AT BEDTIME November 16, 2016 11:00pm Comment on above: Take 1 tablet by mervin th daily at bedtime. Take 2 tablets by mo uth every 8 hours as needed for pain. acetaminophen 325 mg / HYDROcodone bitartrate 5 mg oral tablet (8 sources) Opioid Agonist Start: 11-24-2024 End: 11-29-2024 [...] NEEDED as needed for Pain 10 3 0 August 08, 2024 Contusion of rib on left side Contusion of left front wall of thorax, initial encounter ascorbic acid 250 mg oral tablet (12 sources) Vitamin C Start: 08-19-2022 take 1 [...] mg tablet Discontinued 250 mg PO daily 6 0 March 29, 2019 12:00am April 07, 2019 1:49pm Start: 07-27-2017 AZITHROMYCIN 2 50 MG TABS 2 tablets by mouth today and then 1 tablet daily for the next 4 days AZITHROMYCIN [id number] Irene Garcia [facility] Start: 03-18-2017 End: 04-15-2017 AZITHROMYCIN 250 MG TABS 2 t ablets by mouth today and then 1 tablet daily for the next 4 days AZITHROMYCIN [id number] Irene Garcia [facility] Start: 02-23-2017 End: 03-05-2017 AZITHROMYCIN 250 MG TABS 2 t ablets by mouth today and then 1 tablet daily for the next 4 days AZITHROMYCIN [id number] Jaswant Miller DO Comment on above: Take 2 tablets day o ne, then, 1 tablet daily until gone. baclofen 5 mg oral tablet (20 sources) gamma-Aminobutyric Acid-ergic Agonist Start: 11-05-2023 End: 04-06-2025 take 1 tablet by mouth twice daily baclofen 5 mg tablet Indications: DDD (degenerative disc disease), lumbar Take 1 tablet by mouth two times a day. 180 tablet 1 04/06/2025 Active Start: 09-17-2022 End: 11-03-2023 take 1 [...] Form) Start: 11-24-2016 take 0.5 tablet by [facility] twice daily BACLOFEN 10 MG TABS Take 1/2 tab po twice daily BACLOFEN [id number] Jayde Barnes LPN Start: 11-17-2016 take 5 mg by mouth twice daily Baclofen 10 MG tablet Active 5 mg PO TWICE A DAY November 17, 2016 12:00am muscle relaxer Start: 11-17-2016 take 5 mg by mouth [...] TWICE A DAY January 10, 2021 12:00am eye health Start: 01-10-2021 take 0.2-0.5 drop(s) into the eye(s) twice daily Brimonidine-Timolol (Combigan) 0.2-0.5 % drops Active 1 DRP OPHTHALMIC TWICE A DAY January 09, 2021 11:00pm Comment on above: Use 1 Drop in the le ft eye twice daily. 24 hr buPROPion hydrochloride 300 mg extended release oral tablet (20 sources) Aminoketone Start: End: take 1 tablet by mouth once daily buPROPion XL (WELLBUTRIN XL) 300 mg 24 hr tablet Indications: Depression, recurrent Take 1 tablet by mouth once daily. 30 tablet 5 04/06/2025 Active Start: 01-05-2025 End: 02-02-2025 take 1 [...] ve EACH PO August 19, 2022 12:00am doxycycline hyclate 100 mg oral capsule (20 sources) Tetracycline-class Drug Start: 04-07-2025 End: 04-17-2025 take 1 capsule by mouth twice daily at mealtime doxycycline hyclate (VIBRAMYCIN) 100 mg capsule Take 1 capsule by mouth two times a day for 10 days. Take with food. Avoid dairy. 20 capsule 04/07/2025 04/17/2025 Active Start: 12-27-2020 End: 01-10-2021 take 1 capsule by mouth twice daily Doxycycline Monohydrate 100 mg capsule Discontinued 100 mg PO TWICE A DAY 28 December 27, 2020 12:00am January 10, 2021 10:48am Start: 11-20-2020 End: 01-10-2021 take 1 tablet by mouth twice daily Doxycycline Hyclate 100 mg tablet Discontinued 100 mg PO TWICE A DAY 20 November 20, 2020 12:00am January 10, 2021 10:48am Start: 04-07-2019 End: 07-06-2019 take 1 tablet by mouth twice daily Doxycycline Hyclate 100 mg tablet Discontinued 100 mg PO TWICE A DAY 20 April 07, 2019 12:00am July 06, 2019 11:12am DULCOLAX, BISACODYL, ORAL (20 sources) DULCOLAX, BISACO DYL, ORAL Take 1 tablet by mouth as needed. Active DULCOLAX, BISACO DYL, ORAL Take 1 tablet by mouth as needed. 0 Active Comment on above: Take 1 tablet by mervin as needed. ergocalciferol 1.25 mg oral capsule (20 sources) Provitamin D2 Compound Start: 04-04-2024 ergocalciferol 50,000 unit capsule (VITAMIN D2, DRISDOL) Indications: Vitamin D deficiency Take 1 capsule by mouth every 4 weeks. 3 capsule 3 04/04/2024 Active Start: 09-10-2022 Ergocalciferol (Vitamin D2) 1,250 mcg (50,000 unit) capsule Active 10939 U PO EVERY MONTH September 10, 2022 4:26pm vitamin Start: 09-10-2022 take 17561 [IU] by m outh every month Ergocalciferol (Vitamin D2) Active 28275 UNIT PO EVERY MONTH September 10, 2022 3:26pm Start: 01-23-2022 End: 04-02-2024 ergocalciferol 50,000 unit c apsule (VITAMIN D2, DRISDOL) Indications: Vitamin D deficiency Take 1 capsule by mouth every 4 weeks. 3 capsule 3 04/28/2023 Active Start: 01-10-2021 End: 09-10-2022 Ergocalciferol (Vitamin D2) 1,250 mcg (50,000 unit) capsule Discontinued 69513 U PO every 2 weeks January 10, 2021 10:43am September 10, 2022 4:27pm vitamin Start: 01-10-2021 End: 09-10-2022 take 10570 [IU] by mouth every other week Ergocalciferol (Vitamin D2) Discontinued 34747 UNIT PO every 2 weeks January 10, 2021 9:43am September 10, 2022 3:27pm Start: 11-17-2016 End: 01-10-2021 Ergocalciferol (Vitamin D2) 50,000 UNIT capsule Discontinued 90246 U PO MO November 17, 2016 12:00am January 10, 2021 10:49am Comment on above: Take 1 capsule by mo uth every 2 weeks. Take 1 capsule by mo uth every 4 weeks. estrogens, conjugated (care home) 0.625 mg/ml vaginal cream (20 sources) Estrogen Start: 09-10-2022 End: 02-11-2024 Conjugated [...] sources) Corticosteroid, beta2-Adrenergic Agonist Start: 02-11-2022 End: 04-07-2025 take 1 dose by inhalation once daily BREO ELLIPTA 100-25 mcg/dose inhaler Inhale 1 inhalation as instructed once daily. 1 each 04/07/2025 Active Start: 02-11-2022 End: 01-09-2023 Fluticasone Furoate-Vilanter [...] on above: Take 1 Packet by mervin th one time only for 1 dose. furosemide 20 mg oral tablet (20 sources) Loop Diuretic Start: 03-31-2025 take 1 tablet by mouth once daily in the morning Furosemide 20 mg tablet Active 20 mg PO EVERY MORNING 90 March 31, 2025 1:47pm Start: 07-04-2024 End: 03-31-2025 take 1 tablet by mouth once daily in the morning Furosemide 40 mg tablet Discontinued 40 mg PO EVERY MORNING 90 July 04, 2024 12:00am March 31, 2025 1:48pm furosemide (LASI X) 40 mg tablet Take 20 mg by mouth once daily. Active End: 10-11-2024 furosemide (LASIX) 40 mg/4 m L soln 10/11/2024 Discontinued (Duplicate Entry) furosemide (LASI X) 40 mg/4 mL soln Active ketotifen 0.25 mg/ml ophthalmic solution (18 sources) Histamine-1 Receptor Inhibitor Start: 01-10-2021 Ketotifen Fumarate 0.025 % (0.035 %) drops Active 1 NMA OPHTHALMIC TWICE A DAY January 10, 2021 12:00am eye health administer at least 8 hours apart Start: [...] 50 Plus Probiotic) 4 billion cell capsule (12 sources) Start: take 4 capsules by mouth [...] OPHTHALMIC EVERY EVENING January 10, 2021 12:00am eye health Comment on above: Use 1 Drop in both e yes daily at bedtime. lisinopril 20 mg oral tablet (20 sources) Angiotensin Converting Enzyme Inhibitor Start: 03-31-2025 take 1 tablet by mouth once daily Lisinopril 20 mg tablet Active 20 mg PO DAILY 90 3 March 31, 2025 1:48pm blood pressure Start: 03-31-2025 End: 03-31-2025 Lisinopril 40 mg tablet Disc ontinued 20 mg PO DAILY March 31, 2025 1:47pm March 31, 2025 1:48pm blood pressure Start: 10-19-2020 End: 03-31-2025 take 1 tablet by mouth once daily [...] mg PO DAILY December 27, 2020 12:00am allergies Start: 01-05-2020 take 1 tablet by mervin th once daily as needed loratadine (CLARITIN REDITABS) 10 mg dissolvable tablet Take 1 tablet by mouth once daily as needed (allergies). 01/05/2020 Active Comment on above: Take 1 tablet by mevrin th once daily as needed (allergies). LORazepam 2 mg oral tablet (20 sources) Benzodiazepine Start: End: take 1 tablet by mouth once daily at bedtime LORazepam (ATIVAN) 2 mg tab Indications: Anxiety Take 1 tablet by mouth daily at bedtime for 90 days. 30 tablet 2 03/07/2025 06/05/2025 Active Start: 03-11-2023 End: 12-02-2023 take 1 tablet [...] PO AT BEDTIME January 10, 2021 10:47am anxiety Start: 01-10-2021 take 2 mg by mouth [...] th daily at bedtime for 90 days. meloxicam 15 mg oral tablet (20 sources) [...] th once daily. Multivitamin 1 EACH tablet (5 sources) Start: 11-17-2016 Multivitamin 1 EACH tablet Active 1 {tbl} PO DAILY November 17, 2016 12:00am vitamin Start: 11-17-2016 Multivitamin 1 EACH tablet Active 1 {tbl} PO DAILY November 17, 2016 12:00am MULTIVITAMIN TAB (20 sources) Start: 11-13-2005 MULTIVITAMIN TAB Take one(1) tablet daily. 0 11/13/2005 Active Comment on above: Take one(1) tablet d aily. pantoprazole 20 mg delayed release oral tablet (20 sources) Proton Pump Inhibitor Start: 11-02-2024 take 2 tablets by mouth once daily pantoprazole DR (PROTONIX) 20 mg tablet Indications: Gastroesophageal reflux disease with esophagitis Take 2 tablets by mouth once daily. 180 tablet 3 11/02/2024 Active Start: 01-10-2021 End: 10-30-2024 take 2 tablets by mouth once daily pantoprazole DR (PROTONIX) 20 mg tablet Indications: Gastroesophageal reflux disease with esophagitis Take 2 tablets by mouth once daily. 180 tablet 3 11/02/2024 Active Start: 01-10-2021 take 40 mg by mouth once daily Pantoprazole Active 40 MG PO DAILY January 09, 2021 11:00pm Start: 11-24-2016 take 1 tablet by [facility] once daily PROTONIX 40 MG PACK One tablet by mouth daily PANTOPRAZOLE SODIUM [id number] Jayde Rodriguez Molly TODD Start: 11-17-2016 End: 01-10-2021 Pantoprazole 40 MG tablet Di scontinued 20 mg PO TWICE A DAY November 17, 2016 12:00am January 10, 2021 10:47am Start: 11-17-2016 End: 01-10-2021 take 20 mg by mouth twice daily Pantoprazole Discontinued 20 MG PO TWICE A DAY November 16, 2016 11:00pm January 10, 2021 9:47am Comment on above: Take 2 tablets by mo [facility] once daily. PARoxetine hydrochloride 40 mg oral [...] One tablet by mouth daily PAROXETINE HCL [id number] Jayde Barnes LPN Start: 11-17-2016 take 4 tablets by mo uth once daily Paroxetine Hcl 10 MG tablet Active 40 mg PO DAILY November 17, 2016 12:00am mental health Start: 11-17-2016 take 40 mg by mouth once daily Paroxetine Hcl Active 40 MG PO DAILY November 16, 2016 11:00pm Comment on above: Take 1 tablet by mervin th once daily. polyethylene glycol 3350 21676 mg powder for oral solution (20 sources) Osmotic Laxative Start: 05-27-2017 take 17 g by mouth once daily Polyethylene Glycol 3350 17 GM packet Active 17 g PO DAILY May 27, 2017 12:00am constipation Start: 09-23-2016 polyethylene g lycol 3350 (MIRALAX, GLYCOLAX) 17 gram/dose powder Drink a mix of 1 scoop in 8oz of water/beverage once daily as needed for constipation. 1 Bottle 09/23/2016 Active Comment on above: Drink a mix of 1 sco op in 8oz of water/beverage once daily as needed for constipation. levothyroxine sodium 0.088 mg oral tablet (20 sources) l-Thyroxine Start: 11-02-19 take 1 tablet by mouth five times weekly levothyroxine (SYNTHROID) 88 mcg tablet Indications: Acquired hypothyroidism Take 1 tablet by mouth five times a week. Mondays thru Fridays. None on Saturdays and Sundays. 66 tablet 1 11/02/2024 Active Start: 11-24-2016 SYNTHROID 88 M CG TABS Half tab PO on saturdays, 1 full tab PO thursday, thursday, thursday, , thursday and sundays LEVOTHYROXINE SODIUM [id number] Jayde Barnes PEYTON Start: 11-17-2016 End: 10-30-2024 Levothyroxine 88 mcg tablet Discontinued 88 ug PO .COMPLEX January 10, 2021 10:46am July 01, 2024 1:26pm thyroid 88 mcg PO MOTUWETHFRSA; Start: 11-17-2016 End: 01-10-2021 Levothyroxine 88 MCG tablet Discontinued 44 ug PO SA November 17, 2016 12:00am January 10, 2021 10:46am Start: 11-17-2016 End: 07-01-2024 levothyroxine (SYNTHROID) 88 mcg tablet Indications: Acquired hypothyroidism TAKE 1 TABLET DAILY EXCEPT DO NOT TAKE ON SUNDAYS. TAKE ON AN EMPTY STOMACH 78 tablet 3 11/05/2023 02/13/2024 Discontinued Start: 11-17-2016 End: 01-10-2021 Levothyroxine Discontinued 4 [...] to affected ar ea once daily. Vibegron (14 sources) Start: 08-07-2021 take 1 tablet by [...] as needed for Sob &/Or Wheezing 180 3 December 31, 2020 4:32pm January 10, 2021 10:49am Bronchiectasis, uncomplicated Start: 11-20-2020 End: 02-11-2022 Albuterol Sulfate 90 mcg/act uation HFA aerosol inhaler Active 1 - 2 NMA INHALATION EVERY 4 HOURS NEEDED as needed for Shortness Of Breath 18 February 11, 2022 2:20pm Start: 11-20-2020 End: 02-11-2022 take 1 puff(s) by inhalation every four hours as needed Albuterol Sulfate Active 1 - 2 PUFF INHALATION EVERY 4 HOURS NEEDED February 11, 2022 1:20pm Start: 09-23-2017 End: 11-20-2020 Albuterol Sulfate 1 INHALER inhaler Discontinued 1 - 2 NMA INHALATION EVERY 4 HOURS NEEDED as needed for Shortness Of Breath 18 September 23, 2017 3:39pm November 20, 2020 11:56am Start: 09-23-2017 End: 11-20-2020 take 1 puff(s) by inhalation every four hours as needed Albuterol Sulfate Discontinued 1 - 2 PUFF INHALATION EVERY 4 HOURS NEEDED September 23, 2017 2:39pm November 20, 2020 10:56am Start: 04-15-2017 PROAIR HFA 108 (90 Base) MCG/ACT AERS 2 puffs every 4 hours as needed ALBUTEROL SULFATE [id number] Lory Rasheed Start: 11-24-2016 End: 07-24-2017 take 1-2 puff(s) by inhalation every four hours as needed VENTOLIN HFA 108 (90 Base) MCG/ACT AERS INH 1-2 puffs q4h as needed ALBUTEROL SULFATE [id number] Jayde Barnes LPN Start: 11-17-2016 End: 09-23-2017 [...] 10, 2021 12:00am July 01, 2024 1:47pm blood pressure Comment on above: Take 1 tablet by mervin once daily. apixaban 5 mg oral tablet (20 sources) Factor Xa Inhibitor Start: 2016 End: 2016 take 2 tablets by mouth twice daily, then take 1 tablet by mouth twice daily Apixaban (Eliquis) 5 MG tablet Discontinued 10 mg PO TWICE A DAY 60 0 November 19, 2016 12:33pm May 27, 2017 4:01pm Starter pack; 10 mg p.o. twice daily for 5 more days till 11/24/16 and then 5 mg twice daily for rest of the life AZELASTINE HCL (4 sources) Histamine-1 Receptor Antagonist Start: 2016 take 1 spray(s) nasal route once daily AZELASTINE HCL 0.15 % SOLN 1 spray each nostril daily AZELASTINE HCL [id number] Irene Garcia TOY CONSULTANT azelastine hydrochloride 0.137 mg/actuat / fluticasone propionate 0.05 mg/actuat metered dose nasal spray (8 sources) Corticosteroid, Histamine-1 Receptor Antagonist Start: 2016 End: 2016 take 1 spray(s) nasal route twice daily DYMISTA 137-50 MCG/ACT SUSP 1 spray each nostril twice daily AZELASTINE-FLUTICA RICARDA [id number] Irene Garcia TOY CONSULTANT benoxinate hydrochloride 4 mg/ml / fluorescein sodium 2.5 mg/ml ophthalmic solution (1 source) Diagnostic Dye Start: 2021 End: 2021 fluorescein-benoxi amanda 0.25-0.4 % 1 Drop (FLURESS) bisacodyl 5 mg delayed release oral tablet (14 sources) Stimulant Laxative Start: 2020 End: 2022 [...] Comment on above: Take 1 capsule by [facility] twice daily for 7 days. cholecalciferol 65125 unt oral capsule (8 sources) Vitamin D Start: 11-25-19 17 take 1 capsule by mouth every week VITAMIN D3 24352 UNIT CAPS 1 capsule PO weekly CHOLECALCIFEROL [id number] Jayde Barnes LPN Start: 11-24-2016 take 1 capsule by [facility] every month VITAMIN D3 96506 UNIT CAPS 1 capsule PO monthly CHOLECALCIFEROL [id number] Jayde Barnes MULTILITH OPERATOR D-Mannose powder (5 sources) Start: 08-19-2022 End: 02-11-2024 D-Mannose powder Discontinue d NMA PO August 19, 2022 1:00am February 11, 2024 2:13pm estradiol 0.1 mg/ml vaginal cream (14 sources) Estrogen Start: 11-17-2016 End: 11-19-2016 Estradiol (Estrace Vaginal Cream) 42.5 GM Cream.Appl Discontinued 1 NMA VAGINAL DAILY November 17, 2016 12:00am November 19, 2016 12:25pm Start: 11-17-2016 End: 11-19-2016 Estradiol (Estrace Vaginal C ream) 42.5 GM Cream.Appl Discontinued 1 DOSE VAGINAL DAILY November 16, 2016 11:00pm November 19, 2016 11:25am fluconazole 150 mg oral tablet (20 sources) Azole Antifungal Start: 05-20-2024 End: 07-06-2024 take 1 tablet by mouth once fluconazole (DIFLUCAN) 150 mg tablet Take 150 mg by mouth one time only. 05/20/2024 07/06/2024 Discontinued (Course of therapy completed) Start: 03-07-2024 End: 07-01-2024 take 1 tablet by mouth once daily Fluconazole 100 mg tablet Discontinued 100 mg PO daily 7 March 07, 2024 12:00am July 01, 2024 1:24pm Start: 12-31-2020 End: 01-10-2021 take 1 tablet by mouth once daily Fluconazole 100 mg tablet Discontinued 100 mg PO daily 7 December 31, 2020 12:00am January 10, 2021 [...] 2 puffs twice daily FLUTICASONE PROPIONATE HFA [id number] Jayde Barnes LPN Start: 04-15-2017 End: 07-24-2017 FLOVENT HFA 220 MCG/ACT AERO 2 puff twice daily FLUTICASONE PROPIONATE HFA [id number] Jaswant Millre DO Start: 11-27-2016 End: 03-05-2017 take 2 spray(s) nasal route once daily FLUTICASONE PROPIONATE 50 MCG/ACT SUSP 2 sprays each nostril daily FLUTICASONE PROPIONATE [id number] Jaswant Miller DO Start: 11-17-2016 End: 01-10-2021 [...] Take 1 tablet by mervin once daily. 12 hr guaiFENesin 1200 mg extended release oral tablet (16 sources) Start: 11-20-2020 End: 01-10-2021 take 1 tablet by mouth every twelve hours Guaifenesin 1,200 mg tablet extended release 12hr Discontinued 1200 mg PO Q12H 60 November 20, 2020 12:00am January 10, 2021 10:48am Start: 07-27-2017 GUAIFENESIN 40 0 MG TABS 1 tab twice daily GUAIFENESIN [id number] Irene Garcia TOY CONSULTANT levETIRAcetam 500 mg oral tablet (4 sources) Start: 10-05-2023 End: 10-29-2023 take 1 tablet by mouth twice daily levETIRAcetam (KEPPRA) 500 mg tablet Take 1 tablet by mouth two times a day for 5 days. 10 tablet 0 10/05/2023 10/29/2023 Discontinued Comment on above: Take 1 tablet by mervin two times a day for 5 days. 24 hr mirabegron 50 mg extended release oral tablet (10 sources) beta3-Adrenerg ic Agonist Start: 01-30-2023 End: 09-30-2023 take 1 tablet by mouth once daily mirabegron (MYRBETRIQ) 50 mg Tb24 Take 1 tablet by mouth once daily. 0 01/30/2023 09/30/2023 Discontinued (Discontinued by another Health Care Provider) Comment on above: Take 1 tablet by mervin once daily. multivitamin (13 sources) Start: 11-24-2016 take 1 tablet by mouth once daily MULTI-VITAMIN TABS One tablet by mouth daily MULTIPLE VITAMIN [id number] Jayde Barnes LPN Start: 11-17-2016 take 1 tablet by mervin th once daily Multivitamin Active 1 TABLET PO DAILY November 17, 2016 1:53pm Start: 11-17-2016 take 1 tablet by mervin th once daily Multivitamin Active 1 TABLET PO DAILY November 17, 2016 12:00am Start: 11-17-2016 take 1 tablet by mervin once daily Multivitamin Active 1 TABLET PO [...] Comment on above: TAKE 1 CAPSULE BY [facility] TWICE DAILY FOR 7 DAYS nystatin 237895 unt/ml oral suspension (20 sources) Polyene Antifungal Start: 02-26-2024 End: 03-07-2024 Nystatin 100,000 unit/mL suspension Discontinued 5 mL MUCOUS MEM THREE TIMES A DAY 250 1 February 26, 2024 12:00am March 07, 2024 11:53am swish and swallow 5 cc three times per day for 10 days Start: 11-20-2020 End: 12-31-2020 Nystatin 100,000 unit/mL nick pension Discontinued 5 mL MUCOUS MEM THREE TIMES A DAY 250 1 November 20, 2020 12:00am December 31, 2020 9:25am swish and swallow 5 cc three times per day for 10 days Start: 11-20-2020 End: 12-31-2020 Nystatin Discontinued 5 ML M UCOUS MEM THREE TIMES A DAY 250 November 19, 2020 11:00pm December 31, 2020 8:25am swish and swallow 5 cc three times per day for 10 days Start: 04-15-2017 End: 07-24-2017 NYSTATIN 598788 UNIT/ML SUSP 5 cc swish and swallow three times a day NYSTATIN [id number] Jayde Barnes LPN oxyCODONE hydrochloride 5 mg [...] mg tablet Discontinued 10 mg PO DAILY 30 0 December 27, 2020 12:00am January 10, 2021 10:48am 4 tablets daily for 3 days, then 3 tablets daily for 3 days, then 2 tablets daily for 3 days, then 1 tablet daily for 3 days Start: 04-07-2019 End: 07-06-2019 Prednisone 10 mg tablet Disc ontinued 10 mg PO daily 30 0 April 07, 2019 12:00am July 06, 2019 [...] tab by mouth for 3 days. PREDNISONE [id number] Irene Garcia CNP proparacaine hydrochloride 5 mg/ml [...] CAPS One tablet by mouth daily CYANOCOBALAMIN [id number] Jayde Barnes LPN Start: 11-17-2016 take 1 tablet by mervin once daily Cyanocobalamin (Vitamin B-12) 1,000 MCG tablet Active 1000 ug PO DAILY November 17, 2016 12:00am vitamin Comment on above: Take 1,000 mcg by mo [facility] once daily. Problems Active Problems Problem Classification Problem Date Documented Da te Episodic/Chronic Acute cerebrovascular disease (20 sources) Hemorrhage into subarachnoid space of neuraxis; Translations: [Nontraumatic subarachnoid hemorrhage, unspecified] Onset: 10-02-2023 Resolved: 11-25-2024 10-02-2023 Chronic Administrative/social admission (2 sources) Other reduced mobility; Translations: [Other specified conditions influencing health status] 01-08-2024 Episodic Anxiety disorders (20 sources) Anxiety; Translations: [Anxiety disorder, unspecified] Onset: 01-08-2017 01-08-2017 Chronic Asthma (20 sources) Asthma; Translations: [Exacerbation of asthma] Onset: 01-29-2006 Resolved: 01-20-2010 11-27-2016 Chronic Cardiac dysrhythmias (20 sources) Sick sinus syndrome; Translations: [Sick sinus syndrome] Onset: 03-31-2025 Chronic Chronic kidney disease (20 sources) Chronic [...] uncomplicated] Onset: 07-29-2006 Resolved: 11-27-2009 03-05-2017 Chronic Complications of surgical procedures or medical care (1 source) Non dose-related adverse reaction to medication; Translations: [Unspecified adverse effect of drug or medicament, initial encounter] 03-23-2025 Episodic Conduction disorders (20 sources) Cardiac pacemaker in situ; Translations: [Presence of cardiac pacemaker] Onset: 05-08-2021 07-25-2021 Chronic Coronary atherosclerosis and other heart disease (14 sources) History of non-ST segment elevation myocardial [...] D deficiency, unspecified] Onset: 01-08-2017 01-08-2017 Chronic Open wounds of extremities (5 sources) Laceration without foreign body of left upper arm, initial encounter; Translations: [Skin tear of left upper extremity] 08-16-2024 Episodic Osteoarthritis (20 sources) Osteoarthritis; Translations: [Unspecified osteoarthritis, unspecified site] Onset: 12-18-2011 12-18-2011 Chronic Other aftercare (5 sources) Long-term current use of diuretic; Translations: [...] Onset: 09-23-2016 09-23-2016 Chronic Other gastrointestinal disorders (10 sources) Constipation; Translations: [Constipation, unspecified] 01-09-2023 Episodic [...] injuries and conditions due to external causes (10 sources) Injury of head; Translations: [Unspecified injury [...] injuries and conditions due to external causes (9 sources) Closed injury of head; Translations: [Unspecified injury of head, initial encounter] 08-16-2024 Episodic Other injuries and conditions due to external causes (3 sources) Other specified injuries of thorax, initial encounter; Translations: [Contusion of rib on left side] 08-16-2024 Episodic Other injuries and conditions due to external causes (1 source) Unspecified injury of head, initial encounter; Translations: [Unspecified injury of head, initial encounter] Onset: 2025 Episodic Other liver diseases (1 source) Alkaline phosphatase raised; Translations: [Abnormal levels of other serum enzymes] Episodic Other lower respiratory disease (14 sources) Cough; Translations: [Cough] 01-14-2018 Episodic Other lower respiratory disease (20 sources) Dyspnea; Translations: [Dyspnea, unspecified] 01-14-2018 Episodic Other lower respiratory disease (2 sources) Snoring; Translations: [Snoring] 04-18-2024 Episodic Other lower respiratory disease (5 sources) Dyspnea on exertion; Translations: [Other forms of dyspnea] 01-05-2025 Episodic Other lower respiratory disease (2 sources) Cough; Translations: [Acute cough] 03-28-2025 Episodic Other lower respiratory disease (4 sources) Other forms of dyspnea; Translations: [Other forms of dyspnea] Onset: 02-02-2025 Episodic Other nervous system disorders (1 source) Sleep-wake schedule disorder, delayed phase type; Translations: [Circadian rhythm sleep disorder, delayed sleep phase type] 04-18-2024 Chronic Other nervous system disorders (1 source) Circadian rhythm sleep disorder, delayed sleep phase type; 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] Onset: 04-18-2024 Chronic Other nervous system disorders (2 sources) Impairment of balance; Translations: [Other abnormalities of gait and mobility] 11-09-2023 Episodic Other non-epithelial cancer of skin (1 source) History of squamous cell carcinoma of skin; Translations: [Personal history of other malignant neoplasm of skin] Episodic Other non-traumatic joint disorders (7 sources) Pain in right knee; Translations: [Mechanical pain of right knee] 05-27-2023 Episodic Other non-traumatic joint disorders (1 source) Pain in left hip; Translations: [Hip pain, left] Onset: 03-02-2025 Episodic Other nutritional; endocrine; and metabolic disorders (20 sources) Obese class I; Translations: [Obesity, unspecified] Onset: 07-07-2019 07-07-2019 Chronic Other nutritional; endocrine; and metabolic disorders (14 sources) Obesity; Translations: [Obesity, unspecified] 02-12-2022 Chronic [...] of breast] 05-21-2023 Episodic Other upper respiratory disease (1 source) Allergic rhinitis due to animals; Translations: [Allergic rhinitis due to animal (cat) (dog) hair and dander] 03-23-2025 Chronic Other upper respiratory disease (1 source) Allergic rhinitis due to house dust mite; Translations: [Other allergic rhinitis] 03-23-2025 Chronic Other upper respiratory infections (15 sources) Posterior rhinorrhea; Translations: [Postnasal drip] 01-14-2018 Episodic Otitis media and related conditions (1 source) Dysfunction of left eustachian tube; Translations: [Other specified disorders of Eustachian tube, left ear] Episodic Pleurisy; pneumothorax; pulmonary collapse (2 sources) Pleurisy; Translations: [Pleurisy] Episodic Poisoning by nonmedicinal substances (1 source) Toxic effect from eating shellfish; Translations: [Other shellfish poisoning, accidental (unintentional), initial encounter] 03-23-2025 Episodic Pulmonary heart disease (20 sources) Pulmonary embolism; Translations: [Other pulmonary embolism with acute cor pulmonale] Onset: 11-24-2016 Resolved: 12-29-2017 12-29-2017 Chronic Residual codes; unclassified (2 sources) Sleep apnea; Translations: [Sleep apnea, unspecified] 01-06-2024 Chronic Residual codes; unclassified (2 sources) Hypersomnia; Translations: [Hypersomnia, unspecified] 04-18-2024 Chronic Residual codes; unclassified (6 sources) Hypoxia; Translations: [Idiopathic sleep related nonobstructive alveolar hypoventilation] 05-13-2024 Chronic Residual codes; unclassified (1 source) Behavior finding; Translations: [Other sleep apnea] 05-16-2024 Chronic Residual codes; unclassified (1 source) Daytime somnolence; Translations: [Other hypersomnia] 07-08-2024 Chronic Residual codes; unclassified (2 sources) Idiopathic sleep related nonobstructive alveolar hypoventilation; Translations: [Nocturnal hypoxemia] Onset: 05-26-2024 Chronic Residual codes; unclassified (1 source) Other hypersomnia; Translations: [Excessive daytime sleepiness] Onset: 07-08-2024 Chronic Residual codes; unclassified (1 source) Hypersomnia, unspecified; Translations: [Hypersomnia] Onset: 04-18-2024 Chronic Residual codes; unclassified (7 sources) Edema of right lower limb; Translations: [Localized edema] 05-27-2023 Episodic Residual codes; unclassified (1 source) Forgetful; Translations: [Other general symptoms and signs] 11-09-2023 Episodic Residual codes; unclassified (2 sources) Insomnia; Translations: [Insomnia, unspecified] 04-18-2024 Episodic Respiratory failure; insufficiency; arrest (18 sources) Acute respiratory failure; Translations: [Acute respiratory [...] erector spinae muscle 12-16-2024 Unclassified (1 source) Acute cough; Translations: [Acute cough] Onset: 03-28-2025 Unclassified (1 source) New Patient Onset: 03-23-2025 Unclassified (1 source) Degeneration of intervertebral disc [...] lower quadrant pain] Resolved: 11-11-2012 11-11-2012 Episodic Allergic reactions (2 sources) Allergy to penicillin; Translations: [Allergy status to penicillin] Onset: 01-05-2025 01-05-2025 Episodic Cardiac dysrhythmias (20 sources) Bradycardia; Translations: [Bradycardia, [...] [Dysuria] Onset: 04-18-2024 Episodic Headache; including migraine (6 sources) Posttraumatic headache; Translations: [Post-traumatic headache, unspecified, [...] condition, unspecified] Onset: 11-09-2023 11-09-2023 Episodic Mycoses (20 sources) Candidiasis of mouth; Translations: [Candidal stomatitis] Onset: 04-15-2017 04-15-2017 Episodic Nonspecific chest pain (20 sources) Chest pain; Translations: [Chest pain, unspecified] Onset: 05-05-2017 05-05-2017 Episodic Nutritional deficiencies (2 sources) Iron deficiency; Translations: [Iron deficiency] Onset: 12-14-2024 12-14-2024 Episodic Other aftercare (20 sources) Drug therapy finding; Translations: [FCI (current) use of anticoagulants] Onset: 11-25-2016 Resolved: [...] [Shortness of breath] Onset: 09-30-2024 Episodic Other lower respiratory disease (2 sources) Dyspnea, unspecified; Translations: [Dyspnea, unspecified] Onset: 05-27-2024 Episodic Other lower respiratory disease (1 source) Hypoxemia; Translations: [Oxygen desaturation] Onset: 05-27-2024 Episodic Other lower respiratory disease (1 source) Snoring; Translations: [Snoring] Onset: 04-18-2024 Episodic Other nervous system disorders (20 sources) Abnormal gait; Translations: [Unspecified abnormalities of gait and mobility] Onset: 01-29-2017 Resolved: 06-24-2017 06-24-2017 Episodic Other non-traumatic joint disorders (20 sources) [...] Resolved: 09-30-2017 09-30-2017 Episodic Pulmonary heart disease (4 sources) Pulmonary embolism; [...] Insomnia, unspecified; Translations: [Insomnia, unspecified type] Onset: 04-18-2024 Episodic Respiratory failure; insufficiency; arrest (adult) (20 [...] Onset: 01-30-2012 Resolved: 09-23-2016 09-23-2016 Episodic Unclassified (14 sources) Bilateral SubmassivePE 04-02-2022 Unclassified (20 sources) ASA CLASS II Onset: 03-17-2005 Resolved: 09-23-2016 09-23-2016 Urinary tract infections (20 sources) Urinary tract infectious disease; Translations: [Urinary tract infection, site not specified] Onset: 06-19-2022 Episodic Results Test Name Value Interpretation Reference Range Facility CNOVon 04-11-2025 CNOV Normal [facility] CNOVon 04-07-2025 CNOV Normal [facility] Cardiology Visit Reporton Cardiology Visit Report [facility] [address] [place] [address] OFFICE VISIT Date of Service: 03/31/25 MR#: [id number] Acct: [id number] Name: GEOFFREY NASSAR Rep #: [id number] : 1935 Provider: POWER Canas Age/Sex: 89/F Location: [facility] Status: Signed HPI HPI History of Present Illness Details: This is an 89-year-old female who presents here today for a [...] She underwent a PPM placement in 05/2021. She was in to see her PCP last month, stress test was ordered for low O2. Stress test was normal. She does not have any chest discomfort/heaviness/ tightness. She does not have any worsening symptoms of shortness of breath. She does not have any orthopnea. She denies PND. She does not have any symptoms of congestive heart failure. She does not have any palpitations that she is aware of. She does not have any lightheadedness or dizziness. She does not have any near-syncope or syncope. She does not have any lower extremity edema. She does not have any symptoms of claudication. She does not ambulate well and is in a WC. She recently fell. BP is on the low side today. Intake Vital Signs 07/01/24 13:20 02/15/25 14:14 03/31/25 13:32 Height 5 ft 2 in 5 ft 2 in 5 ft 2 in Weight: 153 lb BMI 28.0 BP 98/60 Pulse 60 Intake Visit Reasons: 9 M FU Allergies ciprofloxacin (From Cipro) Allergy (Verified 02/15/25 14:16) Itching diphenhydramine (From Benadryl) Allergy (Verified 02/15/25 14:16) Rash Penicillins Allergy (Verified 02/15/25 14:16) Hives shellfish derived Allergy (Verified 02/15/25 14:16) Anaphylaxis Sulfa (Sulfonamide Antibiotics) Allergy (Verified 02/15/25 14:16) Upset Stomach tiotropium (From Spiriva with HandiHaler) Allergy (Verified 02/15/25 14:16) Other ketamine Adverse Reaction (Verified 02/15/25 14:16) hallucinations Medications ???Medication ???Instructions ???Recorded ???Confirmed ???Type acetaminophen 325 mg tablet 650 mg PO QHS pain 11/17/16 History baclofen 10 mg tablet 5 mg PO BID muscle relaxer 7 03/31/25 History cyanocobalamin (vitamin B-12) 1,000 mcg PO DAILY vitamin 7 03/31/25 History 1,000 mcg tablet multivitamin 1 tab PO DAILY vitamin 11/17/16 History paroxetine HCl 10 mg tablet 40 mg PO DAILY mental health 11/1709/21/24 History polyethylene glycol 3350 17 gram 17 gm PO DAILY constipation 09/21/24 History oral powder packet aspirin 81 mg tablet,delayed 81 mg PO DAILY@0800 heart health 0 11/27/17 03/31/25 History release lamotrigine 25 mg tablet,extended 25 mg PO DAILY 11/27/17 09/21/24 History release 24 hr loratadine 10 mg tablet (Claritin) 10 mg PO DAILY allergies 1 09/21/24 History albuterol sulfate 2.5 mg/3 mL 2.5 mg inhalation Q4H PRN Sob /Or 01/10/21 03/31/25 History (0.083 %) solution for nebulization Wheezing brimonidine 0.2 %-timolol 0.5 % 1 drp ophthalmic (eye) BID eye 02/2503/31/25 History eye drops (Combigan) health ketotifen fumarate 0.025 % (0.035 1 drp ophthalmic (eye) BID eye 03/31/25 History %) eye drops health latanoprost 0.005 % eye drops, 1 drp ophthalmic (eye) QPM eye 02/2503/31/25 History emulsion health lorazepam 1 mg tablet 2 mg PO QHS anxiety 01/10/2109/21 History pantoprazole 20 mg tablet,delayed 40 mg PO DAILY reflux 01/10/21 History release vibegron 75 mg tablet (Gemtesa) 75 mg PO DAILY 08/07/21 09/21/24 H istory albuterol sulfate 90 mcg/actuation 1 - 2 puff inhalation Q4H PRN AR N 02/11/22 03/31/25 Rx aerosol inhaler Shortness Of Breath #18 grams ascorbic acid (vitamin C) 250 mg 250 mg PO BID 08/19/22 03/31/25 Hi story tablet lactobacillus combination no.9 4 4,000 mmu cells PO DAILY 08/19/22 03/31/25 History billion cell capsule (Adult 50 Plus Probiotic) ergocalciferol (vitamin D2) 1,250 50,000 unit PO QMONTH vitamin 12/2803/31/25 History mcg (50,000 unit) capsule conjugated estrogens 0.625 mg/gram 0.625 mg vaginal .3xweek 4 03/31/25 History vaginal cream levothyroxine 88 mcg tablet 88 mcg PO .COMPLEX thyroid 4 03/31/25 History hydrocodone-acetamino phen 5-325mg 1 tab PO Q6H PRN (more content not included)... Normal [facility] CNOVon 03-28-2025 CNOV Normal [facility] CNPNon 03-28-2025 CNPN Normal [facility] XR CHEST 2V FRONTAL/LATon XR CHEST 2V FRONTAL/LAT Normal [facility] XR Chest PA and Lateralon IMPRESSION: No acute radiographic abnormality. Renewals Specialist: GUILLERMOB Transcribe Date/Time: Mar 28 2025 6:08P Dictated by : KRISTEN ABREU MD This examination was interpreted and the report reviewed and electronically signed by: KRISTEN ABREU MD on Mar 28 2025 6:10PM [facility] DIVISION OF RADIOLOGY * * *Final Report* * * DATE OF EXAM: Mar 28 2025 5:17PM WOX [id number] - XR CHEST 2V FRONTAL/LAT / PROCEDURE REASON: Acute cough * * * * Physician Interpretation * * * * EXAMINATION: CHEST RADIOGRAPH (2 VIEW FRONTAL & LATERAL) CLINICAL HISTORY: Acute cough MQ: XC2_6 EXAM DATE/TIME: 03/28/2025 5:17 PM COMPARISON: 01/25/2025 RESULT: Lines, tubes, and devices: Cardiac pacing device with generator obscuring portions of the left lung. Lead(s) overlying the RA and RV. Lungs and pleura: No consolidation. No lung mass. No pleural effusion. No pneumothorax. Cardiomediastinal silhouette: Normal cardiomediastinal silhouette. Bones and soft tissues: Degenerative changes are present within the thoracic spine. DIVISION OF RADIOLOGY Provider, [facility] - 03/28/2025 * * *Final Report* * * DATE OF EXAM: Mar 28 2025 5:17PM WOX [id number] - XR CHEST 2V FRONTAL/LAT / PROCEDURE REASON: Acute cough * * * * Physician Interpretation * * * * EXAMINATION: CHEST RADIOGRAPH (2 VIEW FRONTAL & LATERAL) CLINICAL HISTORY: Acute cough MQ: XC2_6 EXAM DATE/TIME: 03/28/2025 5:17 PM COMPARISON: 01/25/2025 RESULT: Lines, tubes, and devices: Cardiac pacing device with generator obscuring portions of the left lung. Lead(s) overlying the RA and RV. Lungs and pleura: No consolidation. No lung mass. No pleural effusion. No pneumothorax. Cardiomediastinal silhouette: Normal cardiomediastinal silhouette. Bones and soft tissues: Degenerative changes are present within the thoracic spine. IMPRESSION IMPRESSION: No acute radiographic abnormality. Renewals Specialist: PSCB Transcribe Date/Time: Mar 28 2025 6:08P Dictated by : KRISTEN ABREU MD This examination was interpreted and the report reviewed and electronically signed by: KRISTEN ABREU MD on Mar 28 2025 6:10PM [facility] Radiology Study observation (narrative) Kermit rico [facility] XR Chest PA and LateralOrder ed By: Ccf Provider on 03-28-2025 [facility] CNOVon 03-23-2025 CNOV Normal [facility] CNPNon 03-17-2025 CNPN Normal [facility] Cardiovascular stress test r eportOrdered By: Zane Mcpherson on 03-08-2025 Study report [facility] Cardiovascular Services [address] [place] [address] MR#: [id number] Acct: [id number] Name: GEOFFREY NASSAR Rep #: [id number] : 1935 89 From: Zane Mcpherson MD Primary Care: Dr. Ken Contreras MD atus: REG CLI Referring Dr: Ken Contreras MD Sex: F C Stress Test Report Pharmacologic myocardial perfusion stress test. 89-year-old lady with a history of dyspnea on exertion Resting EKG demonstrates sinus rhythm with a rate of 66 bpm. Resting blood pressure is 122/70 mmHg. 0.4 mg of regadenoson was infused per usual protocol followed by rapid intravenous saline flush injection. Continuous EKG monitoringwas performed. The maximum heart rate was 77 bpm which was 58% of max impacted heart rate the maximum workload was 1 metabolic equivalent. At rest there were no ST or T wave changes noted to suggest ischemia and at peak infusion nonspecific ST changes were noted which did not meet the criteria for ischemia. No clinical angina is noted. The final blood pressure was 128/68 mmHg. Myocardial perfusion protocol. 11.8 mCi of technetium 99m sestamibi was injected at rest. 0.4 mg of regadenoson was infused per usual protocol. At peak infusion 33 mCi of technetium 99m sestamibi was injected stress images were obtained stress and rest images were reconstructed and compared in the short axis vertical long and horizontal long axis. Gated images were also obtained. Perfusion SPECT analysis: Review of the stress images demonstrate normal uptake of tracer noted in all areas of the myocardium. The resting images similar demonstrated normal uptake of tracer noted in all areas of the myocardium. No areas of reversibility are noted to suggest ischemia and no previous infarct is noted. Gated SPECT analysis: The gated ejection fraction is 85%. Conclusion: Normal pharmacologic myocardial perfusion stress test. Preserved ejection fraction. 03/08/25 1721 Date _ Zane Mcpherson MD CC: Dr. Ken Contreras MD ~ Date Dictated: 03/08/251718 Date Transcribed: 03/08/251718 Renewals Specialist: CO Signed [facility] Work Phone: Stress Reporton 03-08-2025 Stress Report [facility] Cardiovascular Services [address] [place] [address] MR#: [id number] Acct: [id number] Name: GEOFFREY NASSAR Rep #: [id number] : 1935 89 From: Zane Mcpherson MD Primary Care: Dr. Ken Contreras MD Status: REG CLI Referring Dr: Ken Contreras MD Sex: F C Stress Test Report Pharmacologic myocardial perfusion stress test. 89-year-old lady with a history of dyspnea on exertion Resting EKG demonstrates sinus rhythm with a rate of 66 bpm. Resting blood pressure is 122/70 mmHg. 0.4 mg of regadenoson was infused per usual protocol followed by rapid intravenous saline flush injection. Continuous EKG monitoring was performed. The maximum heart rate was 77 bpm which was 58% of max impacted heart rate the maximum workload was 1 metabolic equivalent. At rest there were no ST or T wave changes noted to suggest ischemia and at peak infusion nonspecific ST changes were noted which did not meet the criteria for ischemia. No clinical angina is noted. The final blood pressure was 128/68 mmHg. Myocardial perfusion protocol. 11.8 mCi of technetium 99m sestamibi was injected at rest. 0.4 mg of regadenoson was infused per usual protocol. At peak infusion 33 mCi of technetium 99m sestamibi was injected stress images were obtained stress and rest images were reconstructed and compared in the short axis vertical long and horizontal long axis. Gated images were also obtained. Perfusion SPECT analysis: Review of the stress images demonstrate normal uptake of tracer noted in all areas of the myocardium. The resting images similar demonstrated normal uptake of tracer noted in all areas of the myocardium. No areas of reversibility are noted to suggest ischemia and no previous infarct is noted. Gated SPECT analysis: The gated ejection fraction is 85%. Conclusion: Normal pharmacologic myocardial perfusion stress test. Preserved ejection fraction. 03/08/25 1721 Date Zane Mcpherson MD CC: Dr. Ken Contreras MD Date Dictated: 03/08/251718 Date Transcribed: 03/08/251718 Renewals Specialist: CO Signed Normal [facility] CNOVon 03-02-2025 CNOV Normal [facility] Brain/Head without Contrasto n 02-15-2025 Brain/Head without Contrast [facility] Imaging Services [address] [place], [place] [address] Brain/Head without Contrast MR#: [id number] Acct: [id number] Name: GEOFFREY NASSAR Rep #: [id number] : 1935 F 89 From: Radames De Leon MD PCP: Dr. Ken Contreras MD Status: REG ER Study: Brain/Head without Contrast Date of Exam: 02/05 10/01 Exam# [id number] Ordering Dr: Av Valencia MD PROCEDURE: BRAIN/HEAD [...] Contrast IMPRESSION: NO ACUTE FINDINGS Reading Location: [id number] CC: Dr. Av Valencia MD; Dr. Ken Contreras MD Renewals Specialist: Signed Normal [facility] Emergency Department Summary on 02-15-2025 Emergency Department Summary [facility] Medical Records Department [address] [place] [address] Emergency Department Summary 02/15/25 MR#: [id number] Acct: [id number] Name: GEOFFREY NASSAR Rep #: [id number] : 1935 89 From: Av Valencia MD [...] Has history of asthma, hypothyroidism, non-ST elevation WI, GERD, and essential hypertension. She also has [...] symptoms: No Recent Illness/Hospitalizati on: No PFSH PFSH Medical History Presence of cardiac pacemaker ( [...] tablet 40 mg PO DAILY blood pressure 02/25 Unknown History lorazepam 1 mg tablet 2 mg PO QHS anxiety 01/10/21 Unkno wn History pantoprazole 20 mg tablet,delayed 40 mg PO DAILY reflux 01/10/21 History release vibegron 75 mg tablet (Gemtesa) 75 mg PO DAILY 08/07/21 Unknown Hi story albuterol sulfate 90 mcg/actuation 1 - 2 puff inhalation Q4H PRN AR N 02/11/22 Unknown Rx aerosol inhaler Shortness [...] (50,000 uni (more content not included)... Normal [facility] Lumbar Spine 2 or 3 Viewson 02-15-2025 Lumbar Spine 2 or 3 Views [facility] Imaging Services [address] [place] [id number] Lumbar Spine 2 or 3 Views MR#: [id number] Acct: [id number] Name: GEOFFREY NASSAR Rep #: [id number] : 1935 F 89 From: Radames De Leon MD PCP: Dr. Ken Contreras MD Status: REG ER Study: Lumbar Spine 2 or 3 Views Date of Exam: Exam# [id number] Ordering Dr: Av Valencia MD PROCEDURE: LUMBAR [...] osseous abnormality. Spondylosis. Spondylolisthesis. Scoliosis. Reading Location: [id number] CC: Dr. Av Valencia MD; Dr. Ken Contreras MD Renewals Specialist: Signed Normal [facility] Spine Cervical without Contr ason 02-15-2025 Spine Cervical without Contras [facility] Imaging Services [address] [place] [id number] Spine Cervical without Contras MR#: [id number] Acct: [id number] Name: GEOFFRYE NASSAR Rep #: [id number] : 1935 F 89 From: Radames De Leon MD PCP: Dr. Ken Contreras MD Status: REG ER Study: Spine Cervical without Contras Date of Exam: 0 02/15/25 Exam# [id number] Ordering Dr: Av Valencia MD PROCEDURE: SPINE [...] cervical spine fracture. Spondylosis. Spondylolisthesis. Reading Location: [id number] CC: Dr. Av Valencia MD; Dr. Ken Contreras MD Renewals Specialist: Signed Normal [facility] CNPNon 02-06-2025 CNPN Normal [facility] CNPNon 02-03-2025 CNPN Normal [facility] LUNG VOLUMESon 02-03-2025 LUNG VOLUMES Normal [facility] SPIROMETRY - BASELINE AND PO ST DILATORon 02-03-2025 SPIROMETRY - BASELINE AND POST DILATOR Normal [facility] CNOVon 02-02-2025 CNOV Normal [facility] 25(OH)D3 SerPl-[facility] 2024 25-hydroxyvitamin D3 [Mass/Vol] 50.5 ng/mL Normal 31.0-80.0 [facility] Comment on above: Order Comment: Speci men Type: BLOOD SPECIMENOrdering Facility: [facility] Address: [address] [place] [address] Result Comment: Clas sification of 25 [place] Vitamin D status:Deficiency/Insufficiency: < or = 30 ng/ml.Sufficiency/Optimal Levels: 31-80 ng/mLToxicity: > 100 ng/mL.Test performed by chemiluminescent immunoassay. Performed By: #### 1 989-3 ####[facility] LABCLIA [id number] [place] [address] [place] Basic metabolic 2000 [facility] 01-26-2025 Anion gap [Moles/Vol] 12 mmol/L Normal 8-15 [facility] Comment on above: Order Comment: Speci men Type: BLOOD SPECIMENOrdering Facility: [facility] Address: [address] [place] [address] Performed By: #### 2 4321-2 ####[facility] [id number] [place] [address] [place] Calcium [Mass/Vol] 10.0 mg/dL Normal 8.5-10.2 [facility] Comment on above: Order Comment: Speci men Type: BLOOD SPECIMENOrdering Facility: [facility] Address: [address] [place] [address] Performed By: #### 2 4321-2 ####[facility] WEST[facility] [id number] [place] [address] [place] Chloride [Moles/Vol] 104 mmol/L Normal 98-107 [facility] Comment on above: Order Comment: Speci men Type: BLOOD SPECIMENOrdering Facility: [facility] Address: [address] [place] [address] Performed By: #### 2 4321-2 ####[facility] FUADWNCLIA [id number] [place] [address] [place] CO2 [Moles/Vol] 23 mmol/L Normal 22-30 [facility] Comment on above: Order Comment: Speci men Type: BLOOD SPECIMENOrdering Facility: [facility] Address: [address] [place] [address] Performed By: #### 2 4321-2 ####[facility] [id number] [place] [address] [place] Creatinine [Mass/Vol] 1.44 mg/dL High 0.58-0.96 [facility] Comment on above: Order Comment: Speci men Type: BLOOD SPECIMENOrdering Facility: [facility] Address: [address] [place] [address] Performed By: #### 2 4321-2 ####[facility] [id number] [place] [address] [place] Creatinine and Glomerular filtration rate.predicted panel (S/P/Bld) 35 mL/min/1.73m??? Low >=60 [facility] Comment on above: Order Comment: Speci men Type: BLOOD SPECIMENOrdering Facility: [facility] Address: [address] [place] [address] Result Comment: Deidra mated Glomerular Filtration Rate [...] actual GFR. Performed By: #### 2 4321-2 ####[facility] [id number] [place] [address] [place] Glucose [Mass/Vol] 100 mg/dL High 74-99 [facility] Comment on above: Order Comment: Speci men Type: BLOOD SPECIMENOrdering Facility: [facility] Address: [address] [place], [place] [address] Result Comment: The [place] Diabetes Association (ADA) provides guidance for cutoff [...] Standards of Medical Care in Diabetes 2016, [place] [employer]. Diabetes Care. 2016.39(Suppl 1). Performed By: #### 2 4321-2 ####[facility] [id number] [place] [address] [place] Potassium [Moles/Vol] 4.2 mmol/L Normal 3.7-5.1 [facility] Comment on above: Order Comment: Jacob chavez Type: BLOOD SPECIMENOrdering Facility: [facility] Address: [address] [place], [place] [address] Performed By: #### 2 4321-2 ####[facility] [id number] [place] [address] [place] Sodium [Moles/Vol] 139 mmol/L Normal 136-144 [facility] Comment on above: Order Comment: Vini men Type: BLOOD SPECIMENOrdering Facility: [facility] Address: [address] [place] [address] Performed By: #### 2 4321-2 ####[facility] [id number] [place] [address] [place] Urea nitrogen [Mass/Vol] 45 mg/dL High 7-21 [facility] Comment on above: Order Comment: Speci men Type: BLOOD SPECIMENOrdering Facility: [facility] Address: [address] [place] [address] Performed By: #### 2 4321-2 ####[facility] [id number] [place] [address] [place] NT-proBNP SerPl-mCncon 01-26 Natriuretic peptide.B prohormone N-Terminal [Mass/Vol] 323 pg/mL Normal <450 [facility] Comment on above: Order Comment: Speci men Type: BLOOD SPECIMENOrdering Facility: [facility] Address: [address] [place] [address] Performed By: #### 3 3762-6, 3016-3 ####[facility] LABCLIA [id number] [place] [address] [place] TSH SerPl-aCncon 01-26-2025 TSH Qn 0.294 m[IU]/L Normal 0.270-4.200 [facility] Comment on above: Order Comment: Speci men Type: BLOOD SPECIMENOrdering Facility: [facility] Address: [address] [place] [address] Performed By: #### 3 3762-6, 3016-3 ####[facility] LABIA [id number] [place] [address] [place] CNOVon 01-25-2025 CNOV Normal [facility] XR CHEST 2V FRONTAL/LATon XR CHEST 2V FRONTAL/LAT Normal [facility] CNOVon 01-11-2025 CNOV Normal [facility] CNPTOUTREACHon 01-06-2025 CNPTOUTREACH Normal [facility] CNOVon 01-05-2025 CNOV Normal [facility] CNPTOUTREACHon 12-22-2024 CNPTOUTREACH Normal [facility] CNPNon 12-19-2024 CNPN Normal [facility] CNOVon 12-16-2024 CNOV Normal [facility] 25(OH)D3 [facility] 2024 25-hydroxyvitamin D3 [Mass/Vol] 75.9 ng/mL Normal 31.0-80.0 [facility] Comment on above: Order Comment: Speci men Type: BLOOD SPECIMENOrdering Facility: [facility] Address: [address] [place] [address] Result Comment: Clas sification of 25 [place] Vitamin D status:Deficiency/Insufficiency: < or = 30 ng/ml.Sufficiency/Optimal Levels: 31-80 ng/mLToxicity: > 100 ng/mL.Test performed by chemiluminescent immunoassay. Performed By: #### 1 989-3 ####[facility] LABIA [id number] [place] [address] [place] CNOVon 12-14-2024 CNOV Normal [facility] Ferritin [facility]-ncon 2024 Ferritin [Mass/Vol] 147.0 ng/mL Normal 14.7-205.1 [facility] Comment on above: Order Comment: Speci men Type: BLOOD SPECIMENOrdering Facility: [facility] Address: [address] [place] [address] Performed By: #### 2 276-4, 55446-5 ####[facility] LABIA [id number] [place] [address] [place] Iron and Iron binding capaci ty panelon 12-14-2024 Iron [Mass/Vol] 74 ug/dL Normal 41-186 [facility] Comment on above: Order Comment: Speci men Type: BLOOD SPECIMENOrdering Facility: [facility] Address: [address] [place] [address] Performed By: #### 2 276-4, 05042-5 ####[facility] LABIA [id number] [address] [place] Iron binding capacity [Mass/Vol] 305 ug/dL Normal 232-386 [facility] Comment on above: Order Comment: Speci men Type: BLOOD SPECIMENOrdering Facility: [facility] Address: [address] [place] [address] Performed By: #### 2 276-4, 88050-1 ####[facility] LABCLIA [id number] [place] [address] [place] Iron/TIBC [Molar ratio] 24.3 % Normal 15.0-57.0 [facility] Comment on above: Order Comment: Speci men Type: BLOOD SPECIMENOrdering Facility: [facility] Address: [address] [place] [address] Performed By: #### 2 276-4, 54740-8 ####[facility] LABCLIA [id number] [place] [address] [place] CNPNon 12-13-2024 CNPN Normal [facility] CNPTOUTREACHon 12-07-2024 CNPTOUTREACH Normal [facility] CNPNon 12-01-2024 CNPN Normal [facility] CNPNon 11-29-2024 CNPN Normal [facility] CNOVon 11-24-2024 CNOV Normal [facility] XR HIP 3V PELV+ AP/LAT LTon 11-24-2024 XR HIP 3V PELV+ AP/LAT LT Normal [facility] CNPTOUTREACHon 11-23-2024 CNPTOUTREACH Normal [facility] Anion gap in Serum or Plasma Ordered By: Latonya Vargas on 11-11-2024 Anion gap [Moles/Vol] 10 mmol/L 01-19 [facility] BUN/creatinine ratioOrdered By: Latonya Vargas on 11-11-2024 Urea nitrogen/Creatinine [Mass ratio] 27.3 mg/mg High 06-26 [facility] Basic Metabolic Profile (BMP )on 11-11-2024 BUN/CRE 27.3 RATIO High 06-26 [facility] Comment on above: Order Comment: Pt wa nts to see if she needs KCL with Lasix Performed By: #### L 500.2500 ####[facility] [address] [place], [address] Calcium [Mass/Vol] 9.5 mg/dL Normal 7.6-11.0 [facility] Comment on above: Order Comment: Pt ia nts to see if she needs KCL with Lasix Performed By: #### L 500.2500 ####[facility] [address] [place], [address] Chloride [Moles/Vol] 101 mmol/L Normal 98-108 [facility] Comment on above: Order Comment: Pt ia nts to see if she needs KCL with Lasix Performed By: #### L 500.2500 ####[facility] [address] [place], [address] CO2 [Moles/Vol] 25.8 mmol/L Normal 21.0-32.0 [facility] Comment on above: Order Comment: Pt [facility] to see if she needs KCL with Lasix Performed By: #### L 500.2500 ####[facility] [address] [place], [address] Creatinine [Mass/Vol] 1.42 mg/dL High 0.70-1.20 [facility] Comment on above: Order Comment: Pt [facility] to see if she needs KCL with Lasix Performed By: #### L 500.2500 ####[facility] [address] [place], [address] GAP 10 Normal 5-15 [facility] Comment on above: Order Comment: Pt ia nts to see if she needs KCL with Lasix Performed By: #### L 500.2500 ####[facility] [address] [place], [address] GFR/1.73 sq M.predicted among non-blacks MDRD (S/P/Bld) [Vol rate/Area] 36 mL/min/{1.73_m2} Low >60 [facility] Comment on above: Order Comment: Pt ia nts to see if she needs KCL with Lasix Result Comment: mL/m in/1.73m2 CKD-EPI Creatinine Equation (2020) Performed By: #### L 500.2500 ####[facility] [address] [place], [address] Glucose [Mass/Vol] 85 mg/dL Normal 70-99 [facility] Comment on above: Order Comment: Pt ia nts to see if she needs KCL with Lasix Performed By: #### L 500.2500 ####[facility] [address] [place], [address] Potassium [Moles/Vol] 4.9 mmol/L Normal 3.3-5.1 [facility] Comment on above: Order Comment: Pt [facility] to see if she needs KCL with Lasix Performed By: #### L 500.2500 ####[facility] [address] [place], [address] Sodium [Moles/Vol] 137 mmol/L Normal 133-145 [facility] Comment on above: Order Comment: Pt ia nts to see if she needs KCL with Lasix Performed By: #### L 500.2500 ####[facility] [address] [place], [address] Urea nitrogen [Mass/Vol] 39 mg/dL High 4-19 [facility] Comment on above: Order Comment: Pt [facility] to see if she needs KCL with Lasix Performed By: #### L 500.2500 ####[facility] [address] [place], [address] Carbon dioxide, total [Moles /volume] in Central venous bloodOrdered By: Latonya Vargas on 11-11-2024 CO2 [Moles/Vol] 25.8 mmol/L 21.0-32.0 [facility] Chloride assayOrdered By: Marilyn Vargas on 11-11-2024 Chloride [Moles/Vol] 101 mmol/L 98-108 [facility] GFR/1.73 sq M.predicted elissa g non-blacks MDRD (S/P/Bld) [Vol rate/Area]Ordered By: Latonya Vargas on 11-11-2024 Estimated GFR (MDRD) Non-Af Amer 36 Low >60 [facility] Comment on above: mL/min/1.73m2 CKD-EP I Creatinine Equation (2020) Glomerular filtration rate ( GFR) estimation/1.73 sq m using serum, plasma, or whole bOrdered By: Latonya Vargas on 11-11-2024 GFR/1.73 sq M.predicted among non-blacks MDRD (S/P/Bld) [Vol rate/Area] 36 mL/min/{1.73_m2} Low >60 [facility] Comment on above: mL/min/1.73m2 CKD-EP I Creatinine Equation (2020) Potassium (Unsp spec) [Mass/ Vol]Ordered By: Latonya Vargas on 11-11-2024 Potassium [Moles/Vol] 4.9 mmol/L 3.3-5.1 [facility] Potassium measurement (mass/ volume)Ordered By: Latonya Vargas on 11-11-2024 Potassium (Unsp spec) [Mass/Vol] 4.9 mmol/L 3.3-5.1 [facility] Serum creatinine measurement (mass/volume)Ordered By: Latonya Vargas on 11-11-2024 Creatinine [Mass/Vol] 1.42 mg/dL High 0.70-1.20 [facility] Serum glucose measurement (m ass/volume)Ordered By: Latonya Vargas on 11-11-2024 Glucose [Mass/Vol] 85 mg/dL 70-99 [facility] Serum or plasma calcium jose urement (mass/volume)Ordered By: Latonya Vargas on 11-11-2024 Calcium [Mass/Vol] 9.5 mg/dL 7.6-11.0 [facility] Serum or plasma urea nitroge n measurement (mass/volume)Ordered By: Latonya Vargas on 11-11-2024 Urea nitrogen [Mass/Vol] 39 mg/dL High 4-19 [facility] Sodium levelOrdered By: Yunier Vargas on 11-11-2024 Sodium [Moles/Vol] 137 mmol/L 133-145 [facility] CNPTOUTREACHon 11-09-2024 CNPTOUTREACH Normal [facility] CNOVon 10-20-2024 CNOV Normal [facility] Brain/Head without Contrasto n 10-12-2024 Brain/Head without Contrast [facility] Imaging Services [address] [place] [address] Brain/Head without Contrast MR#: [id number] Acct: [id number] Name: GEOFFREY NASSAR RAMACIEL Rep #: [id number] : 1935 F 89 From: Radames De Leon MD PCP: Dr. Ken Contreras MD Status: REG CLI Study: Brain/Head without Contrast Date of Exam: 01/29 Exam# [id number] Ordering Dr: Jann Mello MD PROCEDURE: BRAIN/HEAD [...] use of iterative reconstruction technique). Reading Location: [id number] CC: Dr. Jann Mello MD; Dr. Ken Contreras MD Renewals Specialist: Signed Normal [facility] CNOVon 10-11-2024 CNOV Normal [facility] CNPNon 09-28-2024 CNPN Normal [facility] 12 Lead EKGon 09-05-2024 12 Lead EKG [facility] Cardiovascular Services [address] [place] [address] 12 Lead EKG 09/05/24 1757 MR#: [id number] Acct: [id number] Name: GEOFFREY NASSAR ROQUE Rep #: [id number] : 1935 89 From: Zane Mcpherson MD [...] Abnormal ECG Confirmed by ZANE MCPHERSON MD ([id number]), field map editor MAUREEN DOVE ([id number]) on 09/06/2024 8:01:16 AM Referred By: Confirmed By: ZANE MCPHERSON MD 09/06/24 08 Date Zane Mcpherson MD CC: Dr. Patrice Brady DO; Dr. Ken Contreras MD Signed Normal [facility] Absolute neutrophil countOrd ered By: Patrice Brady on 09-05-2024 Neutrophils (Bld) [#/Vol] 5.4 10*3/uL 2.0-7.7 [facility] BNP (brain natriuretic pepti de measurement)Ordered By: Patrice Brady on 09-05-2024 Natriuretic peptide B (Bld) [Mass/Vol] 26.3 pg/mL 0-100 [facility] BNP,B-Type NATRIURETIC PEPTI Lukas 09-05-2024 Natriuretic peptide B (Bld) [Mass/Vol] 26.3 pg/mL Normal 0-100 [facility] Comment on above: Performed By: #### L 503.6620, L500.2500, L100.0100, L501.4020, L501.9520 #### [facility] [address] [place], [place], [address] Basic Metabolic Profile (BMP )on 09-05-2024 BUN/CRE 28.8 RATIO High 10-20 [facility] Comment on above: Order Comment: 'TROP ' Serial specimen #1, #2 or #3: 1 Performed By: #### L 503.6620, L500.2500, L100.0100, L501.4020, L501.9520 ####[facility] [address] [place], [address] CA,Total 9.6 mg/dL Normal 8.5-10.1 [facility] Comment on above: Order Comment: 'TROP ' Serial specimen #1, #2 or #3: 1 Performed By: #### L 503.6620, L500.2500, L100.0100, L501.4020, L501.9520 ####[facility] [address] [place], [address] ECRCL 27.56 ml/min Normal [facility] Comment on above: Order Comment: 'TROP ' Serial specimen #1, #2 or #3: 1 Performed By: #### L 503.6620, L500.2500, L100.0100, L501.4020, L501.9520 ####[facility] [address] [place], [address] EST GFR - AA 46 mL/min Low >60 [facility] Comment on above: Order Comment: 'TROP ' Serial specimen #1, #2 or #3: 1 Result Comment: Afri can Marshallese GFR Calc Performed By: #### L 503.6620, L500.2500, L100.0100, L501.4020, L501.9520 ####[facility] [address] [place], [address] GAP 6 Normal 5-15 [facility] Comment on above: Order Comment: 'TROP ' Serial specimen #1, #2 or #3: 1 Performed By: #### L 503.6620, L500.2500, L100.0100, L501.4020, L501.9520 ####[facility] [address] [place], [address] GFR/1.73 sq M.predicted among non-blacks MDRD (S/P/Bld) [Vol rate/Area] 38 mL/min/{1.73_m2} Low >60 [facility] Comment on above: Order Comment: 'TROP ' Serial specimen #1, #2 or #3: 1 Result Comment: Non- GFR Calc Performed By: #### L 503.6620, L500.2500, L100.0100, L501.4020, L501.9520 ####[facility] [address] [place], [address] Basophil percentageOrdered B y: Patrice Brady on 09-05-2024 Basophils/100 WBC (Bld) 0.7 % 0-1 [facility] Blood urea nitrogen (BUN)/cr eatinine ratioOrdered By: Patrice Brady on 09-05-2024 Urea nitrogen/Creatinine [Mass ratio] 28.8 mg/mg High 10-20 [facility] CBC W/Diff, Automatedon 08-09-2023 Absolute Lymph 2.37 X10 3/uL Normal 0.83-4.51 [facility] Comment on above: Performed By: #### L 503.6620, L500.2500, L100.0100, L501.4020, L501.9520 #### [facility] [address] [place], [address] Absolute Neut 5.4 X10 3/uL Normal 2.0-7.7 [facility] Comment on above: Performed By: #### L 503.6620, L500.2500, L100.0100, L501.4020, L501.9520 #### [facility] [address] [place], [address] Basophils/100 WBC (Bld) 0.7 % Normal 0-1 [facility] Comment on above: Performed By: #### L 503.6620, L500.2500, L100.0100, L501.4020, L501.9520 #### [facility] [address] [place], [address] Eosinophils/100 WBC (Bld) 3.3 % Normal 0-5 [facility] Comment on above: Performed By: #### L 503.6620, L500.2500, L100.0100, L501.4020, L501.9520 #### [facility] [address] [place], [address] Erythrocyte distribution width (RBC) [Ratio] 15.4 % High 11.6-14.6 [facility] Comment on above: Performed By: #### L 503.6620, L500.2500, L100.0100, L501.4020, L501.9520 #### [facility] [address] [place], [address] Hematocrit (Bld) [Volume fraction] 38.8 % Normal 37-47 [facility] Comment on above: Performed By: #### L 503.6620, L500.2500, L100.0100, L501.4020, L501.9520 #### [facility] [address] [place], [address] Hemoglobin (Bld) [Mass/Vol] 12.3 g/dL Normal 12.0-15.0 [facility] Comment on above: Performed By: #### L 503.6620, L500.2500, L100.0100, L501.4020, L501.9520 #### [facility] [address] [place], [address] IG% 0.400 Normal 0.0-0.9 [facility] Comment on above: Result Comment: IG% - Immature Granulocytes (promyelocytes, myelocytes and metamyelocytes) > 1% indicates that a LEFT SHIFT is Present. Performed By: #### L 503.6620, L500.2500, L100.0100, L501.4020, L501.9520 #### [facility] [address] [place], [address] Lymphocytes/100 WBC (Bld) 26.0 % Normal 19-41 [facility] Comment on above: Performed By: #### L 503.6620, L500.2500, L100.0100, L501.4020, L501.9520 #### [facility] [address] [place], [address] MCH (RBC) [Entitic mass] 30.4 pg Normal 27.0-32.0 [facility] Comment on above: Performed By: #### L 503.6620, L500.2500, L100.0100, L501.4020, L501.9520 #### [facility] [address] [place], [address] MCHC (RBC) [Mass/Vol] 31.7 g/dL Low 32-36 [facility] Comment on above: Performed By: #### L 503.6620, L500.2500, L100.0100, L501.4020, L501.9520 #### [facility] [address] [place], [address] MCV (RBC) [Entitic vol] 95.8 fL Normal 81-99 [facility] Comment on above: Performed By: #### L 503.6620, L500.2500, L100.0100, L501.4020, L501.9520 #### [facility] [address] [place], [address] Monocytes/100 WBC (Bld) 10.6 % High 0-10 [facility] Comment on above: Performed By: #### L 503.6620, L500.2500, L100.0100, L501.4020, L501.9520 #### [facility] [address] [place], [address] Neutrophils/100 WBC (Bld) 59.0 % Normal 47-70 [facility] Comment on above: Performed By: #### L 503.6620, L500.2500, L100.0100, L501.4020, L501.9520 #### [facility] [address] [place], [address] Nucleated RBC (Bld) [#/Vol] 0 10*3/uL Normal 0-5 [facility] Comment on above: Performed By: #### L 503.6620, L500.2500, L100.0100, L501.4020, L501.9520 #### [facility] [address] [place], [address] Platelet mean volume (Bld) [Entitic vol] 9.8 fL Normal 6.2-12.0 [facility] Comment on above: Performed By: #### L 503.6620, L500.2500, L100.0100, L501.4020, L501.9520 #### [facility] [address] [place], [address] Platelets (Bld) [#/Vol] 259 10*3/uL Normal 150-450 [facility] Comment on above: Performed By: #### L 503.6620, L500.2500, L100.0100, L501.4020, L501.9520 #### [facility] [address] [place], [address] RBC (Bld) [#/Vol] 4.05 10*6/uL Low 4.2-5.4 [facility] Comment on above: Performed By: #### L 503.6620, L500.2500, L100.0100, L501.4020, L501.9520 #### [facility] [address] [place], [address] RDW SD 53.9 fl High 35.1-43.9 [facility] Comment on above: Performed By: #### L 503.6620, L500.2500, L100.0100, L501.4020, L501.9520 #### [facility] [address] [place], [address] WBC (Bld) [#/Vol] 9.1 10*3/uL Normal 4.4-11.0 [facility] Comment on above: Performed By: #### L 503.6620, L500.2500, L100.0100, L501.4020, L501.9520 #### [facility] [address] [place], [address] Carbon dioxide measurementOr dered By: Patrice Brady on 09-05-2024 CO2 [Moles/Vol] 29.0 mmol/L Normal 21.0-32.0 [facility] Comment on above: Order Comment: 'TROP ' Serial specimen #1, #2 or #3: 1 Performed By: #### L 503.6620, L500.2500, L100.0100, L501.4020, L501.9520 ####[facility] [address] [place], [address] Chest PA and Lateralon 09-05 Chest PA and Lateral [facility] Services [address] [place] [address] Chest PA and Lateral MR#: [id number] Acct: [id number] Name: GEOFFREY NASSAR Rep #: [id number] : 1935 F 89 From: Bonifacio Llamas MD PCP: Dr. Ken Contreras MD Status: REG ER Study: Chest PA and Lateral Date of Exam: 09/05/24 Exam# [id number] Ordering Dr: Patrice Brady DO [id number] EXAM: XR CHEST, 2 VIEWS CLINICAL INDICATION: [...] Patrice Brady DO; Dr. Ken Contreras MD Renewals Specialist: Signed Normal [facility] Chloride measurementOrdered By: Patrice Brady on 09-05-2024 Chloride [Moles/Vol] 104 mmol/L Normal 98-107 [facility] Comment on above: Order Comment: 'TROP ' Serial specimen #1, #2 or #3: 1 Performed By: #### L 503.6620, L500.2500, L100.0100, L501.4020, L501.9520 ####[facility] [address] [facility] [place], [address] Emergency Department Summary on 09-05-2024 Emergency Department Summary [facility] Medical Records Department [address] [place] [address] Emergency Department Summary 09/05/24 MR#: [id number] Acct: [id number] Name: GEOFFREY NASSAR Rep #: [id number] : 1935 89 From: Patrice Brady DO [...] room air. They state they called the leaf fat scraper and they advised her to come in for further evaluation management. [facility] Medical History Presence of cardiac pacemaker ( [...] hallucinati Ve (more content not included)... Normal [facility] Eosinophil percentageOrdered By: Patrice Brady on 09-05-2024 Eosinophils/100 WBC (Bld) 3.3 % 0-5 [facility] Erythrocyte distribution wid th ratioOrdered By: Patrice Brady on 09-05-2024 Erythrocyte distribution width (RBC) [Ratio] 15.4 % High 11.6-14.6 [facility] Erythrocyte distribution wid th standard deviationOrdered By: Patrice Brady on 09-05-2024 Erythrocyte distribution width (RBC) [Entitic vol] 53.9 fL High 35.1-43.9 [facility] Estimated glomerular filtrat ion rate (GFR) AmericanOrdered By: Patrice Brady on 09-05-2024 Estimated GFR (MDRD) Amer 46 mL/min Low >60 [facility] Comment on above: GFR Calc Estimation of creatinine eric aranceOrdered By: Patrice Brady on 09-05-2024 Estimated Creatinine Clearance Calc 27.56 ml/min [facility] Glomerular filtration rate ( GFR) estimationOrdered By: Patrice Brady on 09-05-2024 Estimated GFR (MDRD) Non-Af Amer 38 mL/min Low >60 [facility] Comment on above: Non- GFR Calc Glucose measurementOrdered B y: Patrice Brady on 09-05-2024 Glucose [Mass/Vol] 99 mg/dL Normal 74-106 [facility] Comment on above: Order Comment: 'TROP ' Serial specimen #1, #2 or #3: 1 Performed By: #### L 503.6620, L500.2500, L100.0100, L501.4020, L501.9520 ####[facility] [address] [place], [address] Hematocrit Auto (Bld) [Volum e fraction]Ordered By: Patrice Brady on 09-05-2024 Hematocrit (Bld) [Volume fraction] 38.8 % 37-47 [facility] Hemoglobin measurementOrdere d By: Patrice Brady on 09-05-2024 Hemoglobin (Bld) [Mass/Vol] 12.3 g/dL 12.0-15.0 [facility] Immature granulocytes/100 WB C Auto (Bld)Ordered By: Patrice Brady on 09-05-2024 Immature granulocytes/100 WBC (Bld) 0.400 % 0.0-0.9 [facility] Comment on above: IG% - Immature Granu locytes (promyelocytes, myelocytes and metamyelocytes) > 1% indicates that a LEFT SHIFT is Present. Influenza virus A and B and SARS-CoV-2 (COVID-19) and Respiratory syncytial virus RNAOrdered By: Patrice Brady on 09-05-2024 SARS-CoV-2 (COVID-19) RNA AQUILINO+probe Ql (Unsp spec) [facility] L501.4020on 09-05-2024 TROPONIN-I HS 6 pg/mL Normal 3.0-54.0 [facility] Comment on above: Order Comment: 'TROP ' Serial specimen #1, #2 or #3: 1 Result Comment: Plea se Note: New Test Units and Gender Specific Reference Ranges. For more information see Policy Stat Procedure [facility] High Sensitivity Troponin (TNIH) and attachments. Performed By: #### L 503.6620, L500.2500, L100.0100, L501.4020, L501.9520 ####[facility] [address] [place], [place], [address] Lymphocytes Auto (Unsp spec) [#/Vol]Ordered By: Patrice Brady on 09-05-2024 Lymphocytes (Bld) [#/Vol] 2.37 10*3/uL 0.83-4.51 [facility] Lymphocytes/100 WBC Auto (Un sp spec)Ordered By: Patrice Brady on 09-05-2024 Lymphocytes/100 WBC (Bld) 26.0 % 19-41 [facility] M100.678on 09-05-2024 M100.678 Pending SARS-CoV-2 (COVID 19) Negative INFLUENZA A Negative INFLUENZA B Negative RSV PCR Negative Normal [facility] Comment on above: Performed By: #### M 100.678 ####[facility] [address] [place], [place], [address] MCV (mean corpuscular volume ) determinationOrdered By: Patrice Brady on 09-05-2024 MCV (RBC) [Entitic vol] 95.8 fL 81-99 [facility] Mean corpuscular hemoglobin (MCH) determinationOrdered By: Patrice Brady on 09-05-2024 MCH (RBC) [Entitic mass] 30.4 pg 27.0-32.0 [facility] Mean corpuscular hemoglobin concentration (MCHC) determinationOrdered By: Patrice Brady on 09-05-2024 MCHC (RBC) [Mass/Vol] 31.7 g/dL Low 32-36 [facility] Mean platelet volume determi nationOrdered By: Patrice Brady on 09-05-2024 Platelet mean volume (Bld) [Entitic vol] 9.8 fL 6.2-12.0 [facility] Monocyte percentageOrdered B y: Patrice Brady on 09-05-2024 Monocytes/100 WBC (Bld) 10.6 % High 0-10 [facility] Neutrophil percentageOrdered By: Patrice Brady on 09-05-2024 Neutrophils/100 WBC (Bld) 59.0 % 47-70 [facility] Nucleated red blood cell per centageOrdered By: Patrice Brady on 09-05-2024 Nucleated RBC/100 WBC (Bld) [Ratio] 0 % 0-5 [facility] Platelet countOrdered By: Earl Brady on 09-05-2024 Platelets (Bld) [#/Vol] 259 10*3/uL 150-450 [facility] Potassium measurementOrdered By: Patrice Brady on 09-05-2024 Potassium [Moles/Vol] 4.0 mmol/L Normal 3.5-5.1 [facility] Comment on above: Order Comment: 'TROP ' Serial specimen #1, #2 or #3: 1 Performed By: #### L 503.6620, L500.2500, L100.0100, L501.4020, L501.9520 ####[facility] [address] [place], [place], [address] RBC Auto (Bld) [#/Vol]Ordere d By: Patrice Brady on 09-05-2024 RBC (Bld) [#/Vol] 4.05 10*6/uL Low 4.2-5.4 [facility] Serum anion gap measurementO rdered By: Patrice Diaser on 09-05-2024 Anion gap [Moles/Vol] 6 mmol/L 5-15 [facility] Serum or plasma calcium jose urement (mass/volume)Ordered By: Patrice Brady on 09-05-2024 Calcium [Mass/Vol] 9.6 mg/dL 8.5-10.1 [facility] Serum or plasma creatinine m easurement (mass/volume)Ordered By: Patrice Brady on 09-05-2024 Creatinine [Mass/Vol] 1.39 mg/dL High 0.55-1.02 [facility] Comment on above: The validity of the [...] #### L 503.6620, L500.2500, L100.0100, L501.4020, L501.9520 ####[facility] [address] [place], [place], [id number] Serum or plasma urea nitroge n measurement (mass/volume)Ordered By: Patrice Brady on 09-05-2024 Urea nitrogen [Mass/Vol] 40 mg/dL High 7-18 [facility] Comment on above: Order Comment: 'TROP ' Serial specimen #1, #2 or #3: 1 Performed By: #### L 503.6620, L500.2500, L100.0100, L501.4020, L501.9520 ####[facility] [address] [facility] [place], [place], [address] Sodium levelOrdered By: Bib Brady on 09-05-2024 Sodium [Moles/Vol] 139 mmol/L Normal 136-145 [facility] Comment on above: Order Comment: 'TROP ' Serial specimen #1, #2 or #3: 1 Performed By: #### L 503.6620, L500.2500, L100.0100, L501.4020, L501.9520 ####[facility] [address] [place], [address] TSH QnOrdered By: Patrice rangel on 09-05-2024 Thyroid Stimulating Hormone (TSH) 0.438 uIU/mL 0.358-3.740 [facility] Thyroid Stim Hormone (TSH)on 09-05-2024 TSH 0.438 uIU/mL Normal 0.358-3.740 [facility] Comment on above: Order Comment: 'TROP ' Serial specimen #1, #2 or #3: 1 Performed By: #### L 503.6620, L500.2500, L100.0100, L501.4020, L501.9520 ####[facility] [address] [facility] [place], [address] Troponin IOrdered By: Patrice Brady on 09-05-2024 Troponin I High Sensitivity 6 pg/mL 3.0-54.0 [facility] Comment on above: Please Note: New Tiara t Units and Gender Specific Reference Ranges. For more information see Policy Stat Procedure [facility] High Sensitivity Troponin (TNIH) and attachments. White blood cell (WBC) count Ordered By: Patrice Brady on 09-05-2024 WBC (Bld) [#/Vol] 9.1 10*3/uL 4.4-11.0 [facility] CNPNon 08-11-2024 CNPN Normal [facility] Brain/Head without Contrasto n 08-08-2024 Brain/Head without Contrast [facility] Imaging Services [address] [place], [place] [address] Brain/Head without Contrast MR#: [id number] Acct: [id number] Name: GEOFFREY NASSAR Rep #: [id number] : 1935 F 89 From: Barak Vuong MD PCP: Dr. Ken Contreras MD Status: REG ER Study: Brain/Head without Contrast Date of Exam: 10/31 Exam# [id number] Ordering Dr: Shad Hunter MD [id number] STUDY: CT BRAIN WITHOUT CONTRAST REASON FOR [...] 16:23 EST Reading Location ID and State: [facility] / [place] Tel , Service support , CC: Dr. Shad Hunter MD; Dr. Ken Contreras MD Renewals Specialist: Signed Normal [facility] Kiley 08-08-2024 CNPN Normal [facility] Emergency Department Summary on 08-08-2024 Emergency Department Summary [facility] Medical Records Department [address] [place] [address] Emergency Department Summary 08/08/24 MR#: [id number] Acct: [id number] Name: GEOFFREY NASSAR ROQUE Rep #: [id number] : 1935 89 From: Shad Hunter MD [...] symptoms. She fell against furniture including a [employer] bench, hitting the back of her head [...] on no anticoagulants or antiplatelets right now. [facility] Medical History Presence of cardiac pacemaker ( [...] (Sulfonamide Allergy (more content not included)... Normal [facility] Ribs Uni Min 3V w/PA Cheston 08-08-2024 Ribs Uni Min 3V w/PA Chest [facility] Imaging Services [address] [place], [place] [address] Ribs Uni Min 3V w/PA Chest MR#: [id number] Acct: [id number] Name: GEOFFREY NASSAR Rep #: [id number] : 1935 F 89 From: Barak Vuong MD PCP: Dr. Ken Contreras MD Status: REG ER Study: Ribs Uni Min 3V w/PA Chest Date of Exam: 08/08 Exam# [id number] Ordering Dr: Shad Hunter MD [id number] STUDY: X-RAY - UNILATERAL RIBS ( LEFT [...] 16:36 EST Reading Location ID and State: [address] [place] [address] Tel , Service support , CC: Dr. Shad Hunter MD; Dr. Ken Contreras MD Renewals Specialist: Signed Normal [facility] CNOVon 07-08-2024 CNOV Normal [facility] CNOVon 07-06-2024 CNOV Normal [facility] BNP,B-Type NATRIURETIC PEPTI Lukas 07-01-2024 Natriuretic peptide B (Bld) [Mass/Vol] 103.7 pg/mL High 0-100 [facility] Comment on above: Performed By: #### L 500.2500, L503.6620 ####[facility] [address] [place], [address] Basic Metabolic Profile (BMP )on 07-01-2024 BUN/CRE 29.1 RATIO High - [facility] Comment on above: Performed By: #### L 500.2500, L503.6620 ####[facility] [address] [place], [address] CA,Total 9.7 mg/dL Normal 8.5-10.1 [facility] Comment on above: Performed By: #### L 500.2500, L503.6620 ####[facility] [address] [place], [address] Chloride [Moles/Vol] 107 mmol/L Normal 98-107 [facility] Comment on above: Performed By: #### L 500.2500, L503.6620 ####[facility] [address] [place], [address] CO2 [Moles/Vol] 28.0 mmol/L Normal 21.0-32.0 [facility] Comment on above: Performed By: #### L 500.2500, L503.6620 ####[facility] [address] [place], [address] Creatinine [Mass/Vol] 1.00 mg/dL Normal 0.55-1.02 [facility] Comment on above: Result Comment: The validity of the calculated GFR GFRAA in patients over 70 years has not been determined. Clinical correlation is essential. Performed By: #### L 500.2500, L503.6620 ####[facility] [address] [place], [address] EST GFR - AA 68 mL/min Normal >60 [facility] Comment on above: Result Comment: Afri can Marshallese GFR Calc Performed By: #### L 500.2500, L503.6620 ####[facility] [address] [place], [address] GAP 2 Low 5-15 [facility] Comment on above: Performed By: #### L 500.2500, L503.6620 ####[facility] [address] [place], [address] GFR/1.73 sq M.predicted among non-blacks MDRD (S/P/Bld) [Vol rate/Area] 56 mL/min/{1.73_m2} Low >60 [facility] Comment on above: Result Comment: Non- GFR Calc Performed By: #### L 500.2500, L503.6620 ####[facility] [address] [place], [address] Glucose [Mass/Vol] 91 mg/dL Normal 74-106 [facility] Comment on above: Performed By: #### L 500.2500, L503.6620 ####[facility] [address] [place], [address] Potassium [Moles/Vol] 5.0 mmol/L Normal 3.5-5.1 [facility] Comment on above: Performed By: #### L 500.2500, L503.6620 ####[facility] [address] [place], [address] Sodium [Moles/Vol] 137 mmol/L Normal 136-145 [facility] Comment on above: Performed By: #### L 500.2500, L503.6620 ####[facility] [address] [place], [address] Urea nitrogen [Mass/Vol] 29 mg/dL High 7-18 [facility] Comment on above: Performed By: #### L 500.2500, L503.6620 ####[facility] [address] [place], [address] Cardiology Visit Reporton Cardiology Visit Report [facility] [address] [place] [address] OFFICE VISIT Date of Service: 07/01/24 MR#: [id number] Acct: [id number] Name: GEOFFREY NASSAR Rep #: [id number] : 1935 Provider: Dr. Zane Mcpherson MD Age/Sex: 89/F Location: [facility] Status: Signed HPI [facility] History of Present Illness Details: This is [...] Visit Reasons: 1 Y FU PREV PFM Fraud Examiner Required: No Accompanied by: Self Is patient [...] (Breo Ellipta) conjugated (more content not included)... Normal [facility] 06-24-[address] [facility] Normal [facility] 06-06-[address] [facility] Telephone (NESLBA) GEOFFREY NASSAR ([id number]) 1935 [facility] Date Time Provider Department 06/06/24 KAYA CARTWRIGHT JR During your visit today, we recorded the following information about you: Laurence Torres LPN 06/06/2024 10:36 AM Signed Pt called in and has not heard anything regarding testing to be done at [facility] for a Polysomnogram. I have re-faxed orders, face sheet and supporting information to [phone]. I have asked the department to call pt to schedule. Pt aware if she does not hear from [facility] to call the department to schedule [...] Assessed Reason for Visit: faxed orders to [facility]- polysomnogram [Other] Prescriptions as of 06/07/2024 [...] cervical reg (more content not included)... Normal [facility] CNPNon 06-01-2024 CNPN Normal [facility] XR Chest PA and Lateralon IMPRESSION: Nonspecific parenchymal changes in right lung base with no definite acute radiographic abnormality. Renewals Specialist: PSCB Transcribe Date/Time: May 28 2024 1:52P Dictated by : JASON EMERY MD This examination was interpreted and the report reviewed and electronically signed by: JASON EMERY MD on May 28 2024 1:53PM [facility] DIVISION OF RADIOLOGY * * *Final Report* [...] soft tissues: Unremarkable. DIVISION OF RADIOLOGY Provider, [facility] Wilfrido Gutierrez - 05/28/2024 * * *Final Report* * [...] base with no definite acute radiographic abnormality. Renewals Specialist: PSCB Transcribe Date/Time: May 28 2024 1:52P Dictated by : JASON EMERY MD This examination was interpreted and the report reviewed and electronically signed by: JASON EMERY MD on May 28 2024 1:53PM [facility] XR Chest PA and LateralOrder ed By: Ccf Provider on 05-28-2024 [facility] Basic metabolic 2000 panelon 05-27-2024 Anion gap [Moles/Vol] 10 mmol/L Normal 8-15 [facility] Comment on above: Order Comment: Speci men Type: BLOOD SPECIMENOrdering Facility: [facility] Address: [address] [place] [address] Performed By: #### 3 3762-6, 37864-7 ####[facility] LABIA [id number] [place] [address] [place] Calcium [Mass/Vol] 9.9 mg/dL Normal 8.5-10.2 [facility] Comment on above: Order Comment: Speci men Type: BLOOD SPECIMENOrdering Facility: [facility] Address: [address] [place] [address] Performed By: #### 3 3762-6, 60349-4 ####[facility] LABCLIA [id number] [place] [id number] [place] Chloride [Moles/Vol] 107 mmol/L Normal 98-107 [facility] Comment on above: Order Comment: Speci men Type: BLOOD SPECIMENOrdering Facility: [facility] Address: [address] [place] [address] Performed By: #### 3 3762-6, 26263-6 ####[facility] LABCLIA [id number] [place] [address] [place] CO2 [Moles/Vol] 25 mmol/L Normal 22-30 [facility] Comment on above: Order Comment: Speci men Type: BLOOD SPECIMENOrdering Facility: [facility] Address: [address] [place] [address] Performed By: #### 3 3762-6, 39664-1 ####[facility] LABCLIA [id number] [place] [address] [place] Creatinine [Mass/Vol] 0.83 mg/dL Normal 0.58-0.96 [facility] Comment on above: Order Comment: Speci men Type: BLOOD SPECIMENOrdering Facility: [facility] Address: [address] [place] [address] Performed By: #### 3 3762-6, 68448-6 ####[facility] LABCLIA [id number] [address] [place] Creatinine and Glomerular filtration rate.predicted panel (S/P/Bld) 68 mL/min/1.73m??? Normal >=60 [facility] Comment on above: Order Comment: Speci men Type: BLOOD SPECIMENOrdering Facility: [facility] Address: [address] [place] [address] Result Comment: Deidra mated Glomerular Filtration Rate [...] actual GFR. Performed By: #### 3 3762-6, 67827-3 ####[facility] LABCLIA [id number] [place] [address] [place] Glucose [Mass/Vol] 90 mg/dL Normal 74-99 [facility] Comment on above: Order Comment: Speci men Type: BLOOD SPECIMENOrdering Facility: [facility] Address: [address] [place] [address] Result Comment: The [place] Diabetes Association (ADA) provides guidance for cutoff [...] Standards of Medical Care in Diabetes 2016, [place] [employer]. Diabetes Care. 2016.39(Suppl 1). Performed By: #### 3 3762-6, 55866-3 ####[facility] LABCLIA [id number] [place] [address] [place] Potassium [Moles/Vol] 4.3 mmol/L Normal 3.7-5.1 [facility] Comment on above: Order Comment: Speci men Type: BLOOD SPECIMENOrdering Facility: [facility] Address: [address] [place] [address] Performed By: #### 3 3762-6, 33701-9 ####[facility] LABCLIA [id number] [place] [address] [place] Sodium [Moles/Vol] 142 mmol/L Normal 136-144 [facility] Comment on above: Order Comment: Speci men Type: BLOOD SPECIMENOrdering Facility: [facility] Address: [address] [place] [address] Performed By: #### 3 3762-6, 63554-4 ####[facility] LABCLIA [id number] [place] [address] [place] Urea nitrogen [Mass/Vol] 22 mg/dL High 7- [facility] Comment on above: Order Comment: Speci men Type: BLOOD SPECIMENOrdering Facility: [facility] Address: [address] [place] [address] Performed By: #### 3 3762-6, 64758-2 ####[facility] LABCLIA [id number] [place] [address] [place] CBC panel Auto (Bld)on 05-27 Erythrocyte distribution width (RBC) [Ratio] 14.4 % 11.5 - 15.0 % [facility] Hematocrit (Bld) [Volume fraction] 41.1 % 36.0 - 46.0 % [facility] Hemoglobin (Bld) [Mass/Vol] 12.6 g/dL 11.5 - 15.5 g/dL [facility] Interpretation and review of laboratory results Normal [facility] MCH (RBC) [Entitic mass] 29.6 pg 26.0 - 34.0 pg [facility] MCHC (RBC) [Mass/Vol] 30.7 g/dL 30.5 - 36.0 g/dL [facility] MCV (RBC) [Entitic vol] 96.7 fL 80.0 - 100.0 fL [facility] Nucleated RBC (Bld) [#/Vol] NINF [facility] Platelet mean volume (Bld) [Entitic vol] 10.6 fL 9.0 - 12.7 fL [facility] Platelets (Bld) [#/Vol] 244 10*3/uL [facility] RBC (Bld) [#/Vol] 4.25 10*6/uL 3.90 - 5.2 0 m/uL [facility] WBC (Bld) [#/Vol] 6.14 10*3/uL [facility] Erythrocyte distribution width (RBC) [Ratio] 14.4 % Normal 11.5-15.0 [facility] Comment on above: Order Comment: Speci men Type: BLOOD SPECIMENOrdering Facility: [facility] Address: [address] [place] [address] Performed By: #### 5 8410-2 ####[facility] LABIA [id number] [place] [address] [place] Hematocrit (Bld) [Volume fraction] 41.1 % Normal 36.0-46.0 [facility] Comment on above: Order Comment: Speci men Type: BLOOD SPECIMENOrdering Facility: [facility] Address: [address] [place] [address] Performed By: #### 5 8410-2 ####[facility] LABIA [id number] [place] [address] [place] Hemoglobin (Bld) [Mass/Vol] 12.6 g/dL Normal 11.5-15.5 [facility] Comment on above: Order Comment: Speci men Type: BLOOD SPECIMENOrdering Facility: [facility] Address: [address] [place] [address] Performed By: #### 5 8410-2 ####[facility] LABIA [id number] [place] [address] [place] MCH (RBC) [Entitic mass] 29.6 pg Normal 26.0-34.0 [facility] Comment on above: Order Comment: Speci men Type: BLOOD SPECIMENOrdering Facility: [facility] Address: [address] [place] [address] Performed By: #### 5 8410-2 ####[facility] LABIA [id number] [place] [address] [place] MCHC (RBC) [Mass/Vol] 30.7 g/dL Normal 30.5-36.0 [facility] Comment on above: Order Comment: Speci men Type: BLOOD SPECIMENOrdering Facility: [facility] Address: [address] [place] [address] Performed By: #### 5 8410-2 ####[facility] LABIA [id number] [id number] [address] [place] MCV (RBC) [Entitic vol] 96.7 fL Normal 80.0-100.0 [facility] Comment on above: Order Comment: Speci men Type: BLOOD SPECIMENOrdering Facility: [facility] Address: [address] [place] [address] Performed By: #### 5 8410-2 ####[facility] LABCLIA [id number] [place] [address] [place] Nucleated RBC (Bld) [#/Vol] 10*3/uL Normal <0.01 [facility] Comment on above: Order Comment: Speci men Type: BLOOD SPECIMENOrdering Facility: [facility] Address: [address] [place] [address] Performed By: #### 5 8410-2 ####[facility] LABCLIA [id number] [place] [address] [place] Platelet mean volume (Bld) [Entitic vol] 10.6 fL Normal 9.0-12.7 [facility] Comment on above: Order Comment: Speci men Type: BLOOD SPECIMENOrdering Facility: [facility] Address: [address] [place] [address] Performed By: #### 5 8410-2 ####[facility] LABIA [id number] [place] [address] [place] Platelets (Bld) [#/Vol] 244 10*3/uL Normal 150-400 [facility] Comment on above: Order Comment: Speci men Type: BLOOD SPECIMENOrdering Facility: [facility] Address: [address] [place] [address] Performed By: #### 5 8410-2 ####[facility] LABCLIA [id number] [place] [address] [place] RBC (Bld) [#/Vol] 4.25 10*6/uL Normal 3.90-5.20 [facility] Comment on above: Order Comment: Speci men Type: BLOOD SPECIMENOrdering Facility: [facility] Address: [address] [place] [address] Performed By: #### 5 8410-2 ####[facility] LABCLIA [id number] [place] [address] [place] WBC (Bld) [#/Vol] 6.14 10*3/uL Normal 3.70-11.00 [facility] Comment on above: Order Comment: Speci men Type: BLOOD SPECIMENOrdering Facility: [facility] Address: [address] [place] [address] Performed By: #### 5 8410-2 ####[facility] LABIA [id number] [place] [address] [place] CNOVon 05-27-2024 CNOV Normal [facility] NT-proBNP SerPl-mCncon 05-27 Natriuretic peptide.B prohormone N-Terminal [Mass/Vol] 286 pg/mL Normal <450 [facility] Comment on above: Order Comment: Speci men Type: BLOOD SPECIMENOrdering Facility: [facility] Address: [address] [place] [address] Performed By: #### 3 3762-6, 71804-9 ####[facility] LABCLIA [id number] [place] [address] [place] XR CHEST 2V FRONTAL/LATon XR CHEST 2V FRONTAL/LAT Normal [facility] XR Chest PA and Lateralon Radiology Study observation (narrative) [facility] CNTHERAPYon 05-26-2024 CNTHERAPY Normal [facility] CNPNon 05-25-2024 CNPN Normal [facility] CNTHERAPYon 05-20-2024 CNTHERAPY Normal [facility] CNOVon 05-16-2024 CNOV Normal [facility] CNPNon 05-16-2024 CNPN Normal [facility] CNOVon 05-13-2024 CNOV Normal [facility] CNPNon 05-13-2024 CNPN Normal [facility] ECG COMPLETEon 05-13-2024 ECG COMPLETE Normal [facility] CNPNon 05-12-2024 CNPN Normal [facility] CNTHERAPYon 05-12-2024 CNTHERAPY Normal [facility] CNTHERAPYon 05-05-2024 CNTHERAPY Normal [facility] POLYSOMNOGRAM (PSG)/HOME SLE EP APNEA TEST (HSAT)on 05-05-2024 POLYSOMNOGRAM (PSG)/HOME SLEEP APNEA TEST (HSAT) Normal [facility] [id number] 04-27-2024 [id number] Normal [facility] CNTHERAPYon 04-26-2024 CNTHERAPY Normal [facility] THERAPY NTon 04-26-2024 THERAPY NT Normal [facility] CNOVon 04-18-2024 CNOV Normal [facility] [id number] 01-27-2024 [id number] HNO ID: [id number] Author: JOSE DIAZ CCC-SLP Service: ? Author Type: Speech Language Pathologist Type: [id number] Filed: 01/27/2024 16:46 Note Text: [facility] Speech Therapy Plan of Care Certification Patient Name: Geoffrey Nassar : 1935 [facility] #: [id number] Date: 01/27/2024 To: Ailyn Bonner, APR* From Therapist: CECILIO Self RE: Patient Certification/ Recertification Your review, approval [...] Speech Communication deficits identified: Cognitive deficits RECOMMENDATION: MANAGER STRATEGIC DEVELOPMENT Recommendations: Outpatient Speech Therapy Results and Recommendations [...] and Duration: Planned Treatment Interventions: Cognitive-Linguistic Training (89997, 40087, 26106), Patient / Caregiver Education/ Training Current Frequency: [...] reviewed the treatment plan for Geoffrey Nassar, [facility]# [id number] for the period of 01/27/24 -- 02/26/24, established on 01/27/2024. Signature certifies the need for therapy services. [facility] CNTHERAPYon 01-27-2024 CNTHERAPY OT/PT/Speech Visit (SPEMML) GEOFFREY NASSAR ([id number]) 1935 F [place] Date Time Provider Department 01/27/24 3:30 PM JOSE DIAZ Date Time Provider Department Center 01/27/2024 3:30 PM [id number] DIAZ [facility] Reason for Visit: Speech Evaluation [1647] Primary Visit Diagnosis:Personal history of traumatic brain [...] Date Reviewed: 01/21/2024 Reviewed by: Michelle Vazquez APRN.TOY CONSULTANT - Fully Assessed Prescriptions as of 01/27/2024 [...] TAB Take one(1) tablet daily. [facility] Office Visit (NEAGCLM) GEOFFREY NASSAR ([id number]) 1935 F Date Time Provider Department 01/21/24 [...] Age: [age] year old Sex: female MRN/E# [id number] Last Office Visit: 10/22/2023 CHIEF COMPLAINT: Patient presents with: Established Patient HPI: The patient presents for a follow up without new imaging for evaluation. This is an 88-year-old female with a PMHx of diverticulosis, HTN, PE, pacemaker, asthma, umbilical hernia, GERD, hypothyroidism, degenerative disc disease (lumbar) tubular adenoma of the colon who was seen for consult at [facility] on 10/03/2023 after transfer from an outside [...] OF Bilater (more content not included)... Normal [facility] CNOVon 11-09-2023 CNOV Office Visit (NTBIBA ) GEOFFREY NASSAR ([id number]) 1935 F [place] Date Time Provider Department [...] this encounter. The patient chart reviewed in Epic and history obtained/confirmed with patient. 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 She uses cane [...] cleaning, laundry but she has assigned a obgyn hospitalist physician to help with cleaning. She drives without any issue. She has recently signed up to grocery delivery service. She is managing her own medications. She looks after her finances. She lives with her mother and also helps and if needed. She is planning to start working with physical and Occupational Therapy. Recent labs/Imaging related to complaint: CT Brain (more content not included)... 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 She shared [...] take her to the emergency department at [facility]. CT scan of the brain indicated a brain bleed and she was subsequently transferred to [facility] where she was admitted. Geoffrey stated that [...] baseline. Activities of Daily Living: Hygiene: independent Commercial Announcer: independent - recently hired a obgyn hospitalist physician and uses food delivery services from [employer] Medications: independent Finances: independent Driving: independent MEDICAL [...] auditory/visual hallucination (more content not included)... Normal [facility] CNOVon 10-22-2023 [facility] Office Visit (NEAGCLM) MADAYGEOFFREY Barbie ([id number]) 1935 F Date Time Provider Department 10/22/23 2:30 PM MICHELLE VAZQUEZ [facility] During your visit today, we recorded the following information about you: Pulse Respiration Blood pressure Weight 60/minute 16/minute 114/76 77.5 kg Height 1.626 m Michelle Vazquez APRN.CNP 10/22/2023 4:05 PM Signed NEUROSURGERY FOLLOW UP OFFICE NOTE Michelle Vazquez APRN.CNP Date of visit: October 22, 2023 Patient Name: Ms.Sally Barbie Nassar Date of : 1935 Current Age: [age] year old Sex: female MRN/E# [id number] Last Office Visit: Hospital follow-up CHIEF COMPLAINT: Patient presents with: Established Patient HPI: The patient presents for a hospital follow up with imaging (CT B) for evaluation. This is an 88-year-old female with a PMHx of diverticulosis, HTN, PE, pacemaker, asthma, umbilical hernia, GERD, hypothyroidism, degenerative disc disease (lumbar) tubular adenoma of the colon who was seen for consult at [facility] on 10/03/2023 after transfer from an outside [...] not help (more content not included)... Normal [facility] CT Head WO contraston 2023 [facility] Basic metabolic 2000 panelon 10-05-2023 Anion gap [Moles/Vol] 8 mmol/L Low 9-18 [facility] Comment on above: Order Comment: Speci men Type: BLOOD SPECIMENOrdering Facility: [facility] Address: [address] [place] [address] Performed By: #### 2 4321-2 ####[facility]ORY[facility] [id number] [place] [address] [place] Calcium [Mass/Vol] 9.1 mg/dL Normal 8.5-10.2 [facility] Comment on above: Order Comment: Speci men Type: BLOOD SPECIMENOrdering Facility: [facility] Address: [address] [place] [address] Performed By: #### 2 4321-2 ####[facility] LABORATORYCLIA [id number] [place] [address] [place] Chloride [Moles/Vol] 101 mmol/L Normal 97-105 [facility] Comment on above: Order Comment: Speci men Type: BLOOD SPECIMENOrdering Facility: [facility] Address: [address] [place] [address] Performed By: #### 2 4321-2 ####[facility]ORY[facility]IA [id number] [place] [address] [place] CO2 [Moles/Vol] 23 mmol/L Normal 22-30 [facility] Comment on above: Order Comment: Speci men Type: BLOOD SPECIMENOrdering Facility: [facility] Address: [address] [place] [address] Performed By: #### 2 4321-2 ####[facility] LABORATORYCLIA [id number] [place] [address] [place] Creatinine [Mass/Vol] 0.67 mg/dL Normal 0.58-0.96 [facility] Comment on above: Order Comment: Speci men Type: BLOOD SPECIMENOrdering Facility: [facility] Address: [address] [place] [address] Performed By: #### 2 4321-2 ####[facility] LABORATORYCLIA [id number] [place] [address] [place] Creatinine and Glomerular filtration rate.predicted panel (S/P/Bld) 85 mL/min/1.73m??? Normal >=60 [facility] Comment on above: Order Comment: Speckaley chavez Type: BLOOD SPECIMENOrdering Facility: [facility] Address: [address] [place] [address] Result Comment: Deidra mated Glomerular Filtration Rate [...] actual GFR. Performed By: #### 2 4321-2 ####[facility] [id number] [place] [address] [place] Glucose [Mass/Vol] 92 mg/dL Normal 74-99 [facility] Comment on above: Order Comment: Jacob chavez Type: BLOOD SPECIMENOrdering Facility: [facility] Address: [address] [place] [address] Result Comment: The [place] Diabetes [employer] (ADA) provides guidance for cutoff [...] Standards of Medical Care in Diabetes 2016, [place] [employer]. Diabetes Care. 2016.39(Suppl 1). Performed By: #### 2 4321-2 ####[facility] LABORATORYCLIA [id number] [place] [id number] [place] Potassium [Moles/Vol] 4.6 mmol/L Normal 3.7-5.1 [facility] Comment on above: Order Comment: Speci men Type: BLOOD SPECIMENOrdering Facility: [facility] Address: [address] [place] [address] Performed By: #### 2 4321-2 ####[facility]ORYCLIA [id number] [place] [id number] [place] [facility] Sodium [Moles/Vol] 132 mmol/L Low 136-144 [facility] Comment on above: Order Comment: Speci men Type: BLOOD SPECIMENOrdering Facility: [facility] Address: [address] [place] [address] Performed By: #### 2 4321-2 ####[facility] LABORATORYCLIA [id number] [place] [id number] [place] [facility] Urea nitrogen [Mass/Vol] 17 mg/dL Normal 7-21 [facility] Comment on above: Order Comment: Speci men Type: BLOOD SPECIMENOrdering Facility: [facility] Address: [address] [place] [address] Performed By: #### 2 4321-2 ####[facility] LABORATORYCLIA [id number] [address] [place] CASE MANAGEMon 10-05-2023 CASE MANAGEM HNO ID: [id number] Author: GRETEL CANNON LSW Service: ? Author Type: Chocolate Molder Type: Care Mgt Progress Note Filed: 10/05/2023 [...] 05, 2023 TIME: 8:20 AM PAGER/CONTACT #: [phone] Normal [facility] CBC panel Auto (Bld)on 10-05 Erythrocyte distribution width (RBC) [Ratio] 14.2 % Normal 11.5-15.0 [facility] Comment on above: Order Comment: Speci men Type: BLOOD SPECIMENOrdering Facility: [facility] Address: [address] [place] [address] Performed By: #### 5 8410-2 ####[facility] LABORATORYCLIA [id number] [address] OF [facility] Hematocrit (Bld) [Volume fraction] 38.2 % Normal 36.0-46.0 [facility] Comment on above: Order Comment: Speci men Type: BLOOD SPECIMENOrdering Facility: [facility] Address: [address] [place] [address] Performed By: #### 5 8410-2 ####[facility] LABORATORYCLIA [id number] [place] Hemoglobin (Bld) [Mass/Vol] 11.9 g/dL Normal 11.5-15.5 [facility] Comment on above: Order Comment: Speci men Type: BLOOD SPECIMENOrdering Facility: [facility] Address: [address] [place] [address] Performed By: #### 5 8410-2 ####[facility] LABORATORYCLIA [id number] [place] MCH (RBC) [Entitic mass] 29.5 pg Normal 26.0-34.0 [facility] Comment on above: Order Comment: Speci men Type: BLOOD SPECIMENOrdering Facility: [facility] Address: [address] [place] [address] Performed By: #### 5 8410-2 ####[facility] LABORATORYCLIA [id number] [address] [place] MCHC (RBC) [Mass/Vol] 31.2 g/dL Normal 30.5-36.0 [facility] Comment on above: Order Comment: Speci men Type: BLOOD SPECIMENOrdering Facility: [facility] Address: [address] [place] [address] Performed By: #### 5 8410-2 ####[facility] LABORATORYCLIA [id number] MCV (RBC) [Entitic vol] 94.8 fL Normal 80.0-100.0 [facility] Comment on above: Order Comment: Speci men Type: BLOOD SPECIMENOrdering Facility: [facility] Address: [address] [place] [address] Performed By: #### 5 8410-2 ####[facility] LABORATORYCLIA [id number] [address] [place] Nucleated RBC (Bld) [#/Vol] 10*3/uL Normal <0.01 [facility] Comment on above: Order Comment: Speci men Type: BLOOD SPECIMENOrdering Facility: [facility] Address: [address] [place] [address] Performed By: #### 5 8410-2 ####[facility] LABORATORYCLIA [id number] [address] [address] Platelet mean volume (Bld) [Entitic vol] 10.3 fL Normal 9.0-12.7 [facility] Comment on above: Order Comment: Speci men Type: BLOOD SPECIMENOrdering Facility: [facility] Address: [address] [place] [address] Performed By: #### 5 8410-2 ####[facility] LABORATORYCLIA [id number] [address] [place] Platelets (Bld) [#/Vol] 205 10*3/uL Normal 150-400 [facility] Comment on above: Order Comment: Speci men Type: BLOOD SPECIMENOrdering Facility: [facility] Address: [address] [place] [address] Performed By: #### 5 8410-2 ####[facility] LABORATORYCLIA [id number] [address] [place] RBC (Bld) [#/Vol] 4.03 10*6/uL Normal 3.90-5.20 [facility] Comment on above: Order Comment: Jacob chavez Type: BLOOD SPECIMENOrdering Facility: [facility] Address: [address] [place], [place] [address] Performed By: #### 5 8410-2 ####[facility] LABORATORYCLIA [id number] [place] [id number] [facility] WBC (Bld) [#/Vol] 6.88 10*3/uL Normal 3.70-11.00 [facility] Comment on above: Order Comment: Jacob chavez Type: BLOOD SPECIMENOrdering Facility: [facility] Address: [address] [place], [place] [address] Performed By: #### 5 8410-2 ####[facility] LABORATORYCLIA [id number] [place] [id number] [facility] CNDSon 10-05-2023 CNDS HNO ID: [id number] Author: WEN GALICIA MD Service: General Surgery [...] THE HOSPITAL: Ms. Geoffrey Nassar presented to [facility] on 10/02/2023 as a transfer from [facility] for treatment of injuries sustained during a [...] you become constipated, you may use any zhpn-yii-ozercuk treatment such as Milk of Magnesia, Sennakot, [...] call for appointment?: Yes Maxime Umanzor MD [phone] [address] [facility] [address] PCP Requested Referral Follow-Up Appointment It is recommended that you follow-up with your primary care provider after hospital discharge. When: In 2 weeks Patient/Parents to call for appointment?: Yes Ken Contreras MD [phone] [address] [facility] [address] PCP Requested Referral Addition (more content not included)... Normal [facility] HNO ID: [id number] Author: GRACE HARRIS RT(R) Service: ? Author Type: Technologist Type: [...] PATIENT PRESENTS WITH AN IMPLANTABLE OR ATTACHED LITERATURE TEACHER: No RADIOLOGY DEPARTMENT: General X-ray: Exam(s) Completed: Chest X-Ray PERIPHERAL IV DATA: Not applicable SIGNED BY: RT Timo(R) October 04, 2023 5:31 AM [facility] Basic metabolic 2000 panelon 01-28-2024 Anion gap [Moles/Vol] 8 mmol/L Low 9-18 [facility] Comment on above: Order Comment: Speci men Type: BLOOD SPECIMENOrdering Facility: [facility] Address: [address] [place] [address] Performed By: #### 2 4321-2 ####[facility] LABORATORYCLIA [id number] [place] [address] [place] Calcium [Mass/Vol] 9.2 mg/dL Normal 8.5-10.2 [facility] Comment on above: Order Comment: Speci men Type: BLOOD SPECIMENOrdering Facility: [facility] Address: [address] [place] [address] Performed By: #### 2 4321-2 ####[facility] LABORATORYCLIA [id number] [place] [address] [place] Chloride [Moles/Vol] 105 mmol/L Normal 97-105 [facility] Comment on above: Order Comment: Speci men Type: BLOOD SPECIMENOrdering Facility: [facility] Address: [address] [place] [address] Performed By: #### 2 4321-2 ####[facility] LABORATORYCLIA [id number] [place] [address] [place] CO2 [Moles/Vol] 25 mmol/L Normal 22-30 [facility] Comment on above: Order Comment: Speci men Type: BLOOD SPECIMENOrdering Facility: [facility] Address: [address] [place] [address] Performed By: #### 2 4321-2 ####[facility] LABORATORYCLIA [id number] [place] [address] [place] Creatinine [Mass/Vol] 0.83 mg/dL Normal 0.58-0.96 [facility] Comment on above: Order Comment: Speci men Type: BLOOD SPECIMENOrdering Facility: [facility] Address: [address] [place] [address] Performed By: #### 2 4321-2 ####[facility] LABORATORYCLIA [id number] [place] [address] [place] Creatinine and Glomerular filtration rate.predicted panel (S/P/Bld) 69 mL/min/1.73m??? Normal >=60 [facility] Comment on above: Order Comment: Jacob chavez Type: BLOOD SPECIMENOrdering Facility: [facility] Address: [address] [place] [address] Result Comment: Deidra mated Glomerular Filtration Rate [...] GFR. Performed By: #### 2 4321-2 ####[facility] LABORATORYCLIA [id number] [place] [address] [place] Glucose [Mass/Vol] 100 mg/dL High 74-99 [facility] Comment on above: Order Comment: Jacob chavez Type: BLOOD SPECIMENOrdering Facility: [facility] Address: [address] [place] [address] Result Comment: The [place] [employer] (ADA) provides guidance for cutoff [...] Standards of Medical Care in Diabetes 2016, [place] [employer]. Diabetes Care. 2016.39(Suppl 1). Performed By: #### 2 4321-2 ####[facility] LABORATORYCLIA [id number] [place] [id number] [place] Potassium [Moles/Vol] 4.1 mmol/L Normal 3.7-5.1 [facility] Comment on above: Order Comment: Speci men Type: BLOOD SPECIMENOrdering Facility: [facility] Address: [address] [place] [address] Performed By: #### 2 4321-2 ####[facility] LABORATORYCLIA [id number] [address] [place] [address] Sodium [Moles/Vol] 138 mmol/L Normal 136-144 [facility] Comment on above: Order Comment: Speci men Type: BLOOD SPECIMENOrdering Facility: [facility] Address: [address] [place] [address] Performed By: #### 2 4321-2 ####[facility] LABORATORYCLIA [id number] [address] STATES [facility] Urea nitrogen [Mass/Vol] 20 mg/dL Normal 7-21 [facility] Comment on above: Order Comment: Speci men Type: BLOOD SPECIMENOrdering Facility: [facility] Address: [address] [place] [address] Performed By: #### 2 4321-2 ####[facility] LABORATORYCLIA [id number] [address] [address] CBC panel Auto (Bld)on 10-04 Erythrocyte distribution width (RBC) [Ratio] 14.8 % Normal 11.5-15.0 [facility] Comment on above: Order Comment: Speci men Type: BLOOD SPECIMENOrdering Facility: [facility] Address: [address] [place] [address] Performed By: #### 5 8410-2 ####[facility] LABORATORYCLIA [id number] [address] [address] Hematocrit (Bld) [Volume fraction] 35.2 % Low 36.0-46.0 [facility] Comment on above: Order Comment: Speci men Type: BLOOD SPECIMENOrdering Facility: [facility] Address: [address] [place] [address] Performed By: #### 5 8410-2 ####[facility] LABORATORYCLIA [id number] [place] [address] [place] Hemoglobin (Bld) [Mass/Vol] 11.2 g/dL Low 11.5-15.5 [facility] Comment on above: Order Comment: Speci men Type: BLOOD SPECIMENOrdering Facility: [facility] Address: [address] [place] [address] Performed By: #### 5 8410-2 ####[facility] LABORATORYCLIA [id number] [address] STATES OF [facility] MCH (RBC) [Entitic mass] 29.7 pg Normal 26.0-34.0 [facility] Comment on above: Order Comment: Speci men Type: BLOOD SPECIMENOrdering Facility: [facility] Address: [address] [place] [address] Performed By: #### 5 8410-2 ####[facility] LABORATORYCLIA [id number] [address] [place] MCHC (RBC) [Mass/Vol] 31.8 g/dL Normal 30.5-36.0 [facility] Comment on above: Order Comment: Speci men Type: BLOOD SPECIMENOrdering Facility: [facility] Address: [address] [place] [address] Performed By: #### 5 8410-2 ####[facility] LABORATORYCLIA [id number] [address] MCV (RBC) [Entitic vol] 93.4 fL Normal 80.0-100.[address] [facility] Comment on above: Order Comment: Speci men Type: BLOOD SPECIMENOrdering Facility: [facility] Address: [address] [place] [address] Performed By: #### 5 8410-2 ####[facility] LABORATORYCLIA [id number] [address] Nucleated RBC (Bld) [#/Vol] 10*3/uL Normal <0.01 [facility] Comment on above: Order Comment: Speci men Type: BLOOD SPECIMENOrdering Facility: [facility] Address: [address] [place] [address] Performed By: #### 5 8410-2 ####[facility] LABORATORYCLIA [id number] [address] [place] Platelet mean volume (Bld) [Entitic vol] 10.2 fL Normal 9.0-12.7 [facility] Comment on above: Order Comment: Speci men Type: BLOOD SPECIMENOrdering Facility: [facility] Address: [address] [place] [address] Performed By: #### 5 8410-2 ####[facility] LABORATORYCLIA [id number] [place] [address] [place] Platelets (Bld) [#/Vol] 206 10*3/uL Normal 150-400 [facility] Comment on above: Order Comment: Speci men Type: BLOOD SPECIMENOrdering Facility: [facility] Address: [address] [place] [address] Performed By: #### 5 8410-2 ####[facility] LABORATORYCLIA [id number] [address] [place] RBC (Bld) [#/Vol] 3.77 10*6/uL Low 3.90-5.20 [facility] Comment on above: Order Comment: Speci men Type: BLOOD SPECIMENOrdering Facility: [facility] Address: [address] [place] [address] Performed By: #### 5 8410-2 ####[facility] LABORATORYCLIA [id number] [address] [place] WBC (Bld) [#/Vol] 9.00 10*3/uL Normal 3.70-11.00 [facility] Comment on above: Order Comment: Speci men Type: BLOOD SPECIMENOrdering Facility: [facility] Address: [address] [place] [address] Performed By: #### 5 8410-2 ####[facility] LABORATORYCLIA [id number] [address] [place] THERAPY NTon 10-04-2023 THERAPY NT HNO ID: [id number] Author: JENNIFER PELLETIER CCC-MANAGER STRATEGIC DEVELOPMENT Service: Speech/Swallow Author Type: Speech Language Pathologist Type: Therapy (PT/OT/Speech/Resp) Filed: 10/04/2023 11:13 Note Text: Speech Therapy Speech Evaluation SERVICE DATE: 10/04/2023 SERVICE TIME: 1055 to 1110 ROOM: [id number] IMPRESSION: Functional communication without limitations in: Speech, [...] 11/07 Months Reversed 10/10 30 Seconds 11/07 Xgew-Cmyz-Ldku 11/07 Go/No-Go 11/07 Address Recall 10/10 Total Patient /Caregiver Goals: Go Home PLAN: ST Frequency: Discontinue Therapy Services Reasons Inpatient Therapy Services Discontinued: No skilled needs Plan of Care Developed with: Patient TREATMENT INTERVENTIONS: Therapy Diagnosis: No Skilled Need Interventions Provided: Speech Language Eval (41165) $ Speech Language Eval (26063) Billed Units: 1 unit The following therapeutic [...] for this therapy evaluation/treatment. SIGNATURE: Jennifer Pelletier CCC-MANAGER STRATEGIC DEVELOPMENT PATIENT NAME: Geoffrey Nassar DATE: October 04, 2023 TIME: 11:12 AM Normal [facility] THERAPY NT HNO ID: [id number] Author: MAC CONNOLLY OTR/L Service: Occupational Therapy Author Type: Occupational Therapist Type: Therapy (PT/OT/Speech/Resp) Filed: 10/04/2023 11:04 Note Text: Occupational Therapy Evaluation Summary SERVICE DATE: 10/04/2023 SERVICE TIME: 0950 to 1037 ROOM: [id number] OT 6 Clicks Score: 16 DISCHARGE RECOMMENDATIONS [...] Impaired cognition Recommended Discharge Equipment: Shower Chair, Production Control Manager, Wheeled Walker ASSESSMENT Response to Therapy Interventions: [...] 8.1 Total Score: 16/30 Visuospatial/Executiv e Alternating [place] Makin Visuoconstructional Skills (Shape): 0 Visuoconstructional Skills [...] Functions and Awareness TREATMENT INTERVENTIONS Evaluation, Self Assisted Management (9 (more content not included)... Normal [facility] XR CHEST 1V FRONTALon 2023 XR CHEST [...] known bronchiectasis, mucous plugging, and tree-in-bud opacities. Renewals Specialist: PSCB Transcribe Date/Time: Oct 04 2023 5:31A Dictated by : GABRIELE VIGIL MD This examination was interpreted and the report reviewed and electronically signed by: GABRIELE VIGIL MD on Oct 04 2023 5:33AM EST [id number] N Normal [facility] 25(OH)D3 SerPl-mCncon 2023 25-hydroxyvitamin D3 [Mass/Vol] 58.6 ng/mL Normal >=30.0 [facility] Comment on above: Order Comment: Speci men Type: BLOOD SPECIMENOrdering Facility: [facility] Address: [address] [place] [address] Result Comment: Clas sification of 25 [place] Vitamin D status: Deficiency: <= 20.0 ng/ml. Insufficiency: 21.0-29.0 ng/ml. Sufficiency: >= 30.0 ng/ml. Performed By: #### 1 989-3 ####[facility] LABORATORYCLIA [id number] [place] [address] [place] Basic metabolic 2000 panelon 10-03-2023 Anion gap [Moles/Vol] 7 mmol/L Low 9-18 [facility] Comment on above: Order Comment: Speci men Type: BLOOD SPECIMENOrdering Facility: [facility] Address: [address] [place] [address] Performed By: #### 1 9123-9, 2777-1, 27947-0 ####[facility] LABORATORYCLIA [id number] [place] [address] [place] Calcium [Mass/Vol] 8.6 mg/dL Normal 8.5-10.2 [facility] Comment on above: Order Comment: Speci men Type: BLOOD SPECIMENOrdering Facility: [facility] Address: [address] [place] [address] Performed By: #### 1 9123-9, 2777-1, 00074-9 ####[facility] LABORATORYCLIA [id number] [place] [address] [place] Chloride [Moles/Vol] 112 mmol/L High 97-105 [facility] Comment on above: Order Comment: Speci men Type: BLOOD SPECIMENOrdering Facility: [facility] Address: [address] [place] [address] Performed By: #### 1 9123-9, 2777-1, 41968-7 ####[facility] LABORATORYCLIA [id number] [place] [address] [place] CO2 [Moles/Vol] 25 mmol/L Normal 22-30 [facility] Comment on above: Order Comment: Speci men Type: BLOOD SPECIMENOrdering Facility: [facility] Address: [address] [place] [address] Performed By: #### 1 9123-9, 2777-, 86209-2 ####[facility] LABORATORYCLIA [id number] [place] [address] [place] Creatinine [Mass/Vol] 0.71 mg/dL Normal 0.58-0.96 [facility] Comment on above: Order Comment: Speci men Type: BLOOD SPECIMENOrdering Facility: [facility] Address: [address] [place] [address] Performed By: #### 1 9123-9, 2777, 24589-6 ####[facility]ITALCL[facility] [id number] [address] OF [facility] Creatinine and Glomerular filtration rate.predicted panel (S/P/Bld) 83 mL/min/1.73m??? Normal >=60 [facility] Comment on above: Order Comment: Speci men Type: BLOOD SPECIMENOrdering Facility: [facility] Address: [address] [place] [address] Result Comment: Deidra mated Glomerular Filtration Rate [...] GFR. Performed By: #### 1 9123-9, 2777-, 80545-6 ####[facility] LABORATORYCLIA [id number] [place] [id number] [place] Glucose [Mass/Vol] 79 mg/dL Normal 74-99 [facility] Comment on above: Order Comment: Speci men Type: BLOOD SPECIMENOrdering Facility: [facility] Address: [address] [place] [address] Result Comment: The [place] Diabetes [employer] (ADA) provides guidance for cutoff [...] Standards of Medical Care in Diabetes 2016, [place] [employer]. Diabetes Care. 2016.39(Suppl 1). Performed By: #### 1 9123-9, 2777-, 22057-4 ####[facility] LABORATORYCLIA [id number] [place] [address] [place] Potassium [Moles/Vol] 4.0 mmol/L Normal 3.7-5.1 [facility] Comment on above: Order Comment: Speci men Type: BLOOD SPECIMENOrdering Facility: [facility] Address: [address] [place] [address] Performed By: #### 1 9123-9, 2777, 55001-9 ####[facility] LABORATORYCLIA [id number] [place] [address] [place] Sodium [Moles/Vol] 144 mmol/L Normal 136-144 [facility] Comment on above: Order Comment: Speci men Type: BLOOD SPECIMENOrdering Facility: [facility] Address: [address] [place] [address] Performed By: #### 1 9123-9, 27703-07, 56474-3 ####[facility] LABORATORYCLIA [id number] [place] [address] [place] Urea nitrogen [Mass/Vol] 18 mg/dL Normal 7-21 [facility] Comment on above: Order Comment: Speci men Type: BLOOD SPECIMENOrdering Facility: [facility] Address: [address] [place] [address] Performed By: #### 1 9123-9, 2777, 23366-5 ####[facility] LABORATORYCLIA [id number] [address] CBC panel Auto (Bld)on 10-03 Erythrocyte distribution width (RBC) [Ratio] 14.3 % Normal 11.5-15.0 [facility] Comment on above: Order Comment: Speci men Type: BLOOD SPECIMENOrdering Facility: [facility] Address: [address] [place] [address] Performed By: #### 5 8410-2 ####[facility] LABORATORYCLIA [id number] [address] Hematocrit (Bld) [Volume fraction] 42.0 % Normal 36.0-46.0 [facility] Comment on above: Order Comment: Speci men Type: BLOOD SPECIMENOrdering Facility: [facility] Address: [address] [place] [address] Performed By: #### 5 8410-2 ####[facility] LABORATORYCLIA [id number] [address] Hemoglobin (Bld) [Mass/Vol] 13.5 g/dL Normal 11.5-15.5 [facility] Comment on above: Order Comment: Speci men Type: BLOOD SPECIMENOrdering Facility: [facility] Address: [address] [place] [address] Performed By: #### 5 8410-2 ####[facility] LABORATORYCLIA [id number] [address] MCH (RBC) [Entitic mass] 30.3 pg Normal 26.0-34.0 [facility] Comment on above: Order Comment: Speci men Type: BLOOD SPECIMENOrdering Facility: [facility] Address: [address] [place] [address] Performed By: #### 5 8410-2 ####[facility] LABORATORYCLIA [id number] [address] [place] MCHC (RBC) [Mass/Vol] 32.1 g/dL Normal 30.5-36.0 [facility] Comment on above: Order Comment: Speci men Type: BLOOD SPECIMENOrdering Facility: [facility] Address: [address] [place] [address] Performed By: #### 5 8410-2 ####[facility] LABORATORYCLIA [id number] [address] MCV (RBC) [Entitic vol] 94.2 fL Normal 80.0-100.0 [facility] Comment on above: Order Comment: Speci men Type: BLOOD SPECIMENOrdering Facility: [facility] Address: [address] [place] [address] Performed By: #### 5 8410-2 ####[facility] LABORATORYCLIA [id number] [address] Nucleated RBC (Bld) [#/Vol] 10*3/uL Normal <0.01 [facility] Comment on above: Order Comment: Speci men Type: BLOOD SPECIMENOrdering Facility: [facility] Address: [address] [place] [address] Performed By: #### 5 8410-2 ####[facility] LABORATORYCLIA [id number] [address] Platelet mean volume (Bld) [Entitic vol] 11.1 fL Normal 9.0-12.7 [facility] Comment on above: Order Comment: Speci men Type: BLOOD SPECIMENOrdering Facility: [facility] Address: [address] [place] [address] Performed By: #### 5 8410-2 ####[facility] LABORATORYCLIA [id number] [address] [address] Platelets (Bld) [#/Vol] 252 10*3/uL Normal 150-400 [facility] Comment on above: Order Comment: Speci men Type: BLOOD SPECIMENOrdering Facility: [facility] Address: [address] [place] [address] Performed By: #### 5 8410-2 ####[facility] LABORATORYCLIA [id number] [address] [place] RBC (Bld) [#/Vol] 4.46 10*6/uL Normal 3.90-5.20 [facility] Comment on above: Order Comment: Jacob kathy Type: BLOOD SPECIMENOrdering Facility: [facility] Address: [address] [place] [address] Performed By: #### 5 8410-2 ####[facility] LABORATORYCLIA [id number] [address] WBC (Bld) [#/Vol] 11.43 10*3/uL High 3.70-11.00 [facility] Comment on above: Order Comment: Jacob chavez Type: BLOOD SPECIMENOrdering Facility: [facility] Address: [address] [place] [address] Performed By: #### 5 8410-2 ####[facility] LABORATORYCLIA [id number] [place] [id number] [facility] CONSULTon 10-03-2023 CONSULT HNO ID: [id number] Author: SINDY ELLIS APRN.TOY CONSULTANT Service: Neurosurgery Author Type: Nurse Practitioner Type: [...] use, who presented as a transfer from [facility] for trauma evaluation after a fall at [...] tab(s) (LaMICtal) 25 mg ORAL DAILY Cindy Braun, albuterol HFA 90 mcg/actuation 2 Puff (PROVENTIL HFA, VENTOLIN HFA) 2 Puff INHALATION q 4 H PRN Cindy Braun DO amLODIPine 5 mg tab(s) (NORVASC) 5 mg ORAL DAILY Max (more content not included)... Normal [facility] CT ABD/PEL W IVCONon 024 CT ABD/PEL W IVCON * * *Final Report* * * DATE OF EXAM: Oct 03 2023 2:13AM [facility] 0530 - CT ABD/PEL W IVCON / [...] changes about urinary bladder. Bones/Soft Tissues: Unremarkable. Window Sh[employer] Cutter And Mounter (topogram) images: Unremarkable. IMPRESSION: Chest: Bronchiectasis within [...] Correlate clinically Lumbar spine: No acute findings. Renewals Specialist: PSCB Transcribe Date/Time: Oct 03 2023 2:21A Dictated by : CYNTHIA FELTON MD This examination was interpreted and the report reviewed and electronically signed by: CYNTHIA FELTON MD on Oct 03 2023 2:57AM EST [id number] Normal [facility] CT BRAIN WO IVCONon 10-03-19 CT BRAIN WO IVCON * * *Final Report* * * DATE OF EXAM: Oct 03 2023 1:59AM [facility] [facility] 0504 - CT BRAIN WO IVCON / [...] head CT 10/02/2023 at 7:35 PM RESULT: Window Shade Cutter And Mounter (topogram) images: No additional significant findings Post-operative [...] similar. No new hemorrhage in the interval. Renewals Specialist: PSCB Transcribe Date/Time: Oct 03 2023 6:52A Dictated by : GUZMAN EVANS MD This examination was interpreted and the report reviewed and electronically signed by: GUZMAN EVANS MD on Oct 03 2023 7:01AM EST [id number] N Normal [facility] CT CHEST W IVCONon 4 CT CHEST W IVCON * * *Final Report* * * DATE OF EXAM: Oct 03 2023 2:13AM [facility] 0539 - CT CHEST W IVCON / [...] changes about urinary bladder. Bones/Soft Tissues: Unremarkable. Window Shade C[employer] And Mounter (topogram) images: Unremarkable. IMPRESSION: Chest: Bronchiectasis within [...] Correlate clinically Lumbar spine: No acute findings. Renewals Specialist: PSCB Transcribe Date/Time: Oct 03 2023 2:21A Dictated by : CYNTHIA FELTON MD This examination was interpreted and the report reviewed and electronically signed by: CYNTHIA FELTON MD on Oct 03 2023 2:57AM EST [id number] Normal [facility] CT LUMBAR SPINE W RECON DATA -NBon 10-03-2023 CT LUMBAR SPINE W RECON DATA -NB * * *Final Report* * * DATE OF EXAM: Oct 03 2023 2:13AM [facility] 0481 - CT LUMBAR SPINE W RECON [...] changes about urinary bladder. Bones/Soft Tissues: Unremarkable. Window Sh[employer] C[employer] And Mounter (topogram) images: Unremarkable. IMPRESSION: Chest: Bronchiectasis within [...] Correlate clinically Lumbar spine: No acute findings. Renewals Specialist: TEMO Transcribe Date/Time: Oct 03 2023 2:21A Dictated by : CYNTHIA FELTON MD This examination was interpreted and the report reviewed and electronically signed by: CYNTHIA FELTON MD on Oct 03 2023 2:57AM EST [id number] Normal [facility] CT T-SPINE W RECON DATA -NBo n 10-03-2023 CT T-SPINE W RECON DATA -NB * * *Final Report* * * DATE OF EXAM: Oct 03 2023 2:13AM [facility] 0485 - CT T-SPINE W RECON DATA [...] changes about urinary bladder. Bones/Soft Tissues: Unremarkable. Window Shade C[employer] And Mounter (topogram) images: Unremarkable. IMPRESSION: Chest: Bronchiectasis within [...] Correlate clinically Lumbar spine: No acute findings. Renewals Specialist: TEMO Transcribe Date/Time: Oct 03 2023 2:21A Dictated by : CYNTHIA FELTON MD This examination was interpreted and the report reviewed and electronically signed by: CYNTHIA FELTON MD on Oct 03 2023 2:57AM EST [id number] Normal [facility] Calcium.ionized [Moles/Vol]o n 10-03-2023 Calcium.ionized (BldV) [Mass/Vol] 1.20 mmol/L Normal 1.08-1.30 [facility] Comment on above: Order Comment: Speci men Type: BLOOD SPECIMENOrdering Facility: [facility] Address: [address] [place] [address] Performed By: #### 1 995-0 ####[facility] LABORATORYCLIA [id number] [place] [id number] [place] Calcium.ionized adjusted to pH 7.4 (Bld) [Moles/Vol] 1.21 mmol/L Normal 1.08-1.30 [facility] Comment on above: Order Comment: Speci men Type: BLOOD SPECIMENOrdering Facility: [facility] Address: [facility] [place] [address] Performed By: #### 1 995-0 ####[facility] LABORATORYCLIA [id number] [place] [address] [place] ECHOon 10-03-2023 Echocardiography Echocardiography Report: Transthoracic Echo [facility] Date of service: 10/03/2023 7:45:32 AM [facility] Ordering physician: GRZEGORZ BEEBE Indication: Frequent PVCs Technologist: Pat Pollock [facility] Interpreting physician: Lorenzo Salazar MD PATIENT: Name: MS. GEOFFREY NASSAR [...] deceleration time is 241 msec. TRICUSPID VALVE [place] tricuspid valve. There is mild (1+ - [...] * * Final * * * CC [employer] [facility] Image : [id number] micsSISUID [facility] ED NOTEon 10-03-2023 ED NOTE HNO ID: [id number] Author: RUFINA BAUM RN Service: Nursing Author Type: Registered Nurse Type: ED Notes Filed: 10/03/2023 01:48 Note Text: CT notified pt ready Normal [facility] ED NOTE HNO ID: [id number] Author: RUFINA BAUM RN Service: Nursing Author Type: Registered Nurse Type: ED Notes Filed: 10/03/2023 01:23 Note Text: Report called to Kelsi on [address] [facility] HISTORY PHYSICALon HISTORY PHYSICAL HNO ID: [id number] Author: ZAMZAM WOODS MD Service: General Surgery Author Type: Physician Type: H&P Filed: 10/03/2023 14:05 Note Text: Surgical Intensive Care Unit Consult Note SERVICE DATE: 10/03/2023 SERVICE TIME: 12:13 AM REASON FOR CONSULT: Head bleed REQUESTING PHYSICIAN: Dr. woods Subjective 88 year old female with PMH HTN, depression, GERD, hypothyroidism, bradycardia (S/p pacemaker), prior cholecystectomy, STEPHON BSO presents from [place] after GLF. Patient states she was throwing [...] Negative for (more content not included)... Normal [facility] HISTORY PHYSICAL HNO ID: [id number] Author: WEN GALICIA MD Service: General Surgery Author Type: Physician Type: H&P Filed: 10/03/2023 10:37 Note Text: TRAUMA SURGERY HANDP [facility] ARRIVAL DATE: 10/02/2023 ARRIVAL TIME: 10PM INJURY DATE: 10/02/2023 INJURY TIME: unknown Subjective 88 year old female with PMH HTN, depression, GERD, hypothyroidism, bradycardia (S/p pacemaker), prior cholecystectomy, STEPHON BSO presents from [place] after GLF. Patient states she was throwing [...] COVID-19 original vaccine, age 12+ yr, monovalent ([employer] - [place] TOP) 01/23/2022 COVID-19 vaccine (Hole 19) 11/15/2020 08/15/2021 hepatitis B (HepB) vaccine, 3-dose [...] INCONTINENCE 20 (more content not included)... Normal [facility] International normalized rat io (INR) calculationOrdered By: Janett Her on 10-03-2023 INR Coag (PPP) [Relative time] 1.0 {INR} Normal 0.9-1.3 [facility] Comment on above: Order Comment: Speci men Type: BLOOD SPECIMENOrdering Facility: [facility] Address: [address] [place] [address] [place] [id number] Result Comment: Rebecca min K Antagonist (VKA) Therapeutic Range: INR 2 to 3 (Target INR of 2.5) Note: For patients treated with VKA drugs, such as warfarin, the [employer] 2012 Guideline recommends [...] GH, et al. Chest 2012, 141:7S-47S Marcia TIWARI et al. [facility] 2017, 70: 252-289 Performed By: #### 1 4979-9, 73056-7 ####[facility] LABORATORYCLIA [id number] [address] STATES OF [facility] Magnesium SerPl-mCncon 10-03 Magnesium [Mass/Vol] 2.1 mg/dL Normal 1.7-2.3 [facility] Comment on above: Order Comment: Speci men Type: BLOOD SPECIMENOrdering Facility: [facility] Address: [address] [place] [address] Performed By: #### 1 9123-9, 2777-1, 82733-9 ####[facility] LABORATORYCLIA [id number] [address] PLATELET MAPPINGon 4 ADP INHIBITION 15.3 % Normal 0-17 [facility] Comment on above: Order Comment: Speci men Type: BLOOD SPECIMENOrdering Facility: [facility] Address: [address] [place] [address] Performed By: #### P LTMAP ####[facility] [id number] [address] ARACHIDONIC ACID INHIBITION 53.1 % High 0-11 [facility] Comment on above: Order Comment: Speci men Type: BLOOD SPECIMENOrdering Facility: [facility] Address: [address] [place] [address] Performed By: #### P LTMAP ####[facility] LABORATORYCLIA [id number] [address] Maximum amplitude activator F induced Resonance TEG (Bld) [Length] 20 mm High 2-19 [facility] Comment on above: Order Comment: Speci men Type: BLOOD SPECIMENOrdering Facility: [facility] Address: [address] [place] [address] Performed By: #### P LTMAP ####[facility] LABORATORYCLIA [id number] [address] Maximum amplitude kaolin induced after addition of heparinase Resonance TEG (Bld) [Length] 66.5 mm Normal 53-68 [facility] Comment on above: Order Comment: Jacob chavez Type: BLOOD SPECIMENOrdering Facility: [facility] Address: [address] [place] [address] Performed By: #### P LTMAP ####[facility] LABORATORYCLIA [id number] [place] [address] [facility] [place] Platelet aggregation ADP induced Qn (Bld) 59.4 mm Normal 45-69 [facility] Comment on above: Order Comment: [facility] Type: BLOOD SPECIMENOrdering Facility: [facility] Address: [address] [place] [address] Performed By: #### P LTMAP ####[facility] LABORATORYCLIA [id number] [address] [place] Platelet aggregation arachidonate induced Qn (Bld) 41.8 mm Low 51-71 [facility] Comment on above: Order Comment: [facility] Type: BLOOD SPECIMENOrdering Facility: [facility] Address: [address] [place] [address] Performed By: #### P LTMAP ####[facility] LABORATORYCLIA [id number] [address] [place] THROMBOGRAPH INTERP Normal [facility] Comment on above: Order Comment: Jacob [facility] Type: BLOOD SPECIMENOrdering Facility: [facility] Address: [address] [place] [address] Result Comment: The PlateletMapping Cartridge, is a [...] panel (ASPCLP). Performed By: #### P LTMAP ####[facility]ITALCL[facility] [id number] [address] STATES OF [facility] PT panel Coag (PPP)on 2023 PT Coag (PPP) [Time] 10.2 s Normal 9.7-13.0 [facility] Comment on above: Order Comment: Jacob chavez Type: BLOOD SPECIMENOrdering Facility: [facility] Address: [address] [place] [address] Performed By: #### 1 4979-9, 74412-6 ####[facility] LABORATORYCLIA [id number] [place] [address] [place] Phosphate SerPl-mCncon 10-03 Phosphate [Mass/Vol] 1.7 mg/dL Low 2.7-4.8 [facility] Comment on above: Order Comment: Jacob chavez Type: BLOOD SPECIMENOrdering Facility: [facility] Address: [address] [place] [address] Performed By: #### 1 9123-9, 2777-1, 35696-3 ####[facility] LABORATORYCLIA [id number] [address] [place] STAPH AUREUS PCRon S. aureus and MRSA panel AQUILINO+probe (Nose) Normal Negative [facility] Comment on above: Order Comment: Speci men Type: SWAB OF INTERNAL NOSEOrdering Facility: [facility] Address: [address] [place] [address] Result Comment: Nega tive for Staphylococcus aureus by PCR. Negative for MRSA by PCR Performed By: #### S APCR ####[facility] LABORATORYCLIA [id number] [place] [address] [facility] THERAPY NTon 10-03-2023 THERAPY NT HNO ID: [id number] Author: RADHA ALVAREZ, PT Service: Physical Therapy Author Type: Physical Therapist Type: Therapy (PT/OT/Speech/Resp) Filed: 10/03/2023 16:17 Note Text: Physical Therapy Evaluation Summary SERVICE DATE: 10/03/2023 SERVICE TIME: 1515 to 1540 ROOM: [place] [address] PT 6 Clicks Score: 18 DISCHARGE RECOMMENDATIONS [...] and mobility-other TREATMENT INTERVENTIONS Evaluation, Therapeutic Activity (84663) Timed Code Treatment (minutes): 8 Skilled Treatment Time (minutes): 25 $ Evaluation-Moderate (53215) Billed Units: 1 unit Therapeutic Activity (67740) Treatment Minutes: 8 $ Therapeutic Activity (01306) Billed Units: 1 unit Pt reported dizziness [...] Functional Mobility Training, Balance Training SIGNATURE: Radha Alvarez, PT PATIENT NAME: Geoffrey Nassar DATE: October 03, 2023 TIME: 4:14 PM Normal [facility] TOX SCREEN ROUT URon 024 Amphetamines Confirm (U) [Mass/Vol] Negative Normal Negative [facility] Comment on above: Order Comment: Speci men Type: URINE SPECIMENOrdering Facility: [facility] Address: [address] [place] [address] Result Comment: Cuto ff threshold at 1000 ng/mL. Performed By: #### U TOX2 ####[facility] LABORATORYCLIA [id number] [place] [address] [place] BARBITURATES, URINE Negative Normal Negative [facility] Comment on above: Order Comment: Speci men Type: URINE SPECIMENOrdering Facility: [facility] Address: [address] [place] [address] Result Comment: Cuto ff threshold at 200 ng/mL. Performed By: #### U TOX2 ####[facility] LABORATORYCLIA [id number] [place] [address] [place] BENZODIAZEPINES, UR Negative Normal Negative [facility] Comment on above: Order Comment: Speci men Type: URINE SPECIMENOrdering Facility: [facility] Address: [address] [place] [address] Result Comment: Cuto ff threshold at 200 ng/mL. Performed By: #### U TOX2 ####[facility] LABORATORYCLIA [id number] [address] STATES OF [facility] Cannabinoids Screen Ql (U) Negative Normal Negative [facility] Comment on above: Order Comment: Speci men Type: URINE SPECIMENOrdering Facility: [facility] Address: [address] [place] [address] Result Comment: Cuto ff threshold at 50 ng/mL. Performed By: #### U TOX2 ####[facility] LABORATORYCLIA [id number] [address] [place] Cocaine Ql (U) Negative Normal Negative [facility] Comment on above: Order Comment: Speci men Type: URINE SPECIMENOrdering Facility: [facility] Address: [address] [place] [address] Result Comment: Cuto ff threshold at 300 ng/mL. Performed By: #### U TOX2 ####[facility] LABORATORYCLIA [id number] [address] [place] Ethanol (U) [Mass/Vol] <11 Normal <11 [facility] Comment on above: Order Comment: Speci men Type: URINE SPECIMENOrdering Facility: [facility] Address: [address] [place] [address] Performed By: #### U TOX2 ####[facility] LABORATORYCLIA [id number] [address] [place] Opiates Screen Ql (U) Negative Normal Negative [facility] Comment on above: Order Comment: Speci men Type: URINE SPECIMENOrdering Facility: [facility] Address: [address] [place] [address] Result Comment: Cuto ff threshold at 300 ng/mL. Performed By: #### U TOX2 ####[facility] LABORATORYCLIA [id number] [address] oxyCODONE cutoff Screen (U) [Mass/Vol] Negative Normal Negative [facility] Comment on above: Order Comment: Speci men Type: URINE SPECIMENOrdering Facility: [facility] Address: [address] [place] [address] Result Comment: Cuto ff threshold at 100 ng/mL. Performed By: #### U TOX2 ####[facility] LABORATORYCLIA [id number] [address] Phencyclidine Ql (U) Negative Normal Negative [facility] Comment on above: Order Comment: Speci men Type: URINE SPECIMENOrdering Facility: [facility] Address: [address] [place] [address] Result Comment: Cuto ff threshold at 25 ng/mL. Performed By: #### U TOX2 ####[facility] LABORATORYCLIA [id number] [address] aPTT PPPon 10-03-2023 aPTT Coag (PPP) [Time] 27.6 s Normal 23.0-32.4 [facility] Comment on above: Order Comment: Speci men Type: BLOOD SPECIMENOrdering Facility: [facility] Address: [address] [place] [address] Performed By: #### 1 4979-9, 95044-6 ####[facility] LABORATORYCLIA [id number] [address] Absolute lymphocyte countOrd ered By: Janett Her on 10-02-2023 Lymphocytes Auto (Unsp spec) [#/Vol] 2.01 10*3/uL 0.83-4.51 [facility] Activated partial thrombopla stin time (aPTT) in platelet poor plasma by coagulation aOrdered By: Janett Her on 10-02-2023 aPTT Coag (PPP) [Time] 26.1 s 24.1-36.2 [facility] Automated lymphocyte count a s percentage of total leukocytesOrdered By: Janett Arden on 10-02-2023 Lymphocytes/100 WBC Auto (Unsp spec) 19.6 % 19-41 [facility] Basophil percentageOrdered B y: Janett Arden on 10-02-2023 Basophils/100 WBC (Bld) 0.5 % 0-1 [facility] Chloride [Moles/Vol] 107 mmol/L 98-107 [facility] Eosinophils/100 WBC (Bld) 3.9 % 0-5 [facility] Glucose [Mass/Vol] 101 mg/dL 74-106 [facility] Comment on above: Fasting Glucose resu lt from 100 to 125 mg/dL suggests IMPAIRED HOMEOSTASIS per A.D.A. criteria. Hemoglobin (Bld) [Mass/Vol] 12.9 g/dL 12.0-15.0 [facility] Monocytes/100 WBC (Bld) 9.4 % 0-10 [facility] Neutrophils (Bld) [#/Vol] 6.8 10*3/uL 2.0-7.7 [facility] Neutrophils/100 WBC (Bld) 65.9 % 47-70 [facility] Potassium [Moles/Vol] 4.4 mmol/L 3.5-5.1 [facility] Sodium [Moles/Vol] 138 mmol/L 136-145 [facility] WBC (Bld) [#/Vol] 10.3 10*3/uL 4.4-11.0 [facility] Determination of erythrocyte mean corpuscular volume (MCV)Ordered By: Janett Her on 10-02-2023 MCV (RBC) [Entitic vol] 93.2 fL 81-99 [facility] ED NOTEon 10-02-2023 ED NOTE HNO ID: [id number] Author: RHONDA JOHANSEN RN Service: ? Author Type: Registered Nurse Type: ED Notes Filed: 10/02/2023 22:40 Note Text: Bed: 06-ED Expected date: Expected time: Means of arrival: Comments: [place]; Head bleed Normal [facility] ED PROV NOTEon 10-02-2023 ED PROV NOTE HNO ID: [id number] Author: GRZEGORZ BEEBE DO Service: Emergency Medicine [...] CT head. GRZEGORZ ROTH 10/02/23 2316 Normal [facility] ED PROV NOTE HNO ID: [id number] Author: GRZEGORZ BEEBE DO Service: Emergency Medicine Author Type: Physician Type: ED Provider Notes Filed: 10/05/2023 23:47 Note Text: ED Provider Note Patient Name: Geoffrey Nassar : 1935 SERVICE DATE: 10/02/23 History Patient presents with: Head Injury: Patient arrives via EMS as a transfer from [place] for known head bleed. States she lost [...] the emergency department as a transfer from [place] for a known subarachnoid hemorrhage. Patient is answering questions appropriately and cooperative on my examination. 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 When [...] problems and suicidal ideas. Physical Exam Vitals [10/02/23 2245] B (more content not included)... Normal [facility] Erythrocyte distribution wid th ratioOrdered By: Janett Her on 10-02-2023 Erythrocyte distribution width (RBC) [Ratio] 14.2 % 11.6-14.6 [facility] Erythrocyte distribution wid th standard deviationOrdered By: Janett Her on 10-02-2023 Erythrocyte distribution width (RBC) [Entitic vol] 48.6 fL 35.1-43.9 [facility] Hematocrit Auto (Bld) [Volum e fraction]Ordered By: Janett Her on 10-02-2023 Hematocrit (Bld) [Volume fraction] 41.3 % 37-47 [facility] Immature granulocytes/100 WB C Auto (Bld)Ordered By: Janett Her on 10-02-2023 Immature granulocytes/100 WBC (Bld) 0.700 % 0.0-0.9 [facility] Comment on above: IG% - Immature Granu locytes (promyelocytes, myelocytes and metamyelocytes) > 1% indicates that a LEFT SHIFT is Present. Laboratory - Chemistry and C hemistry - challengeOrdered By: Janett Her on 10-02-2023 CO2 [Moles/Vol] 29.0 mmol/L 21.0-32.0 [facility] Urea nitrogen/Creatinine [Mass ratio] 26.2 mg/mg 10-20 [facility] Laboratory - CoagulationOrde red By: Janett Her on 10-02-2023 PT Coag (PPP) [Time] 12.8 s 11.7-14.9 [facility] Laboratory - Hematology and Cell countsOrdered By: Janett Her on 10-02-2023 MCH (RBC) [Entitic mass] 29.1 pg 27.0-32.0 [facility] MCHC (RBC) [Mass/Vol] 31.2 g/dL 32-36 [facility] Nucleated RBC/100 WBC (Bld) [Ratio] 0 % 0-5 [facility] Platelets (Bld) [#/Vol] 228 10*3/uL 150-450 [facility] No Panel InformationOrdered By: Janett Her on 10-02-2023 Estimated GFR (MDRD) Amer 78 mL/min >60 [facility] Comment on above: GFR Calc Estimated GFR (MDRD) Non-Af Amer 65 mL/min >60 [facility] Comment on above: Non- GFR Calc Platelet mean volume Jovan-Ec ker (Bld) [Entitic vol]Ordered By: Janett Her on 10-02-2023 Platelet mean volume (Bld) [Entitic vol] 9.9 fL 6.2-12.0 [facility] RBC Auto (Bld) [#/Vol]Ordere d By: Janett Her on 10-02-2023 RBC (Bld) [#/Vol] 4.43 10*6/uL 4.2-5.4 [facility] Serum or plasma calcium jose urement (mass/volume)Ordered By: Janett Her on 10-02-2023 Calcium [Mass/Vol] 9.5 mg/dL 8.5-10.1 [facility] Serum or plasma creatinine m easurement (mass/volume)Ordered By: Jantet Her on 10-02-2023 Creatinine [Mass/Vol] 0.88 mg/dL 0.55-1.02 [facility] Comment on above: The validity of the calculated GFR & GFRAA in patients over 70 years has not been determined. Clinical correlation is essential. Serum or plasma urea nitroge n measurement (mass/volume)Ordered By: Janett Her on 10-02-2023 Urea nitrogen [Mass/Vol] 23 mg/dL 7-18 [facility] Thin prep Papanicolaou smear with manual screeningOrdered By: Janett Her on 10-02-2023 Thin prep Papanicolaou smear with manual screening 2 5-15 [facility] SOPHIE DIAG W ALEISHA LEFTon 08-04 [facility] SOPHIE SCREENINGon 07-07-2023 [facility] Absolute lymphocyte countOrd ered By: Amanda Daugherty on 05-05-2023 Lymphocytes Auto (Unsp spec) [#/Vol] 1.71 10*3/uL 0.83-4.51 [facility] Basophil percentageOrdered B y: Amanda Daugherty on 05-05-2023 Basophils/100 WBC (Bld) 0.7 % 0-1 [facility] Bilirubin [Mass/Vol] 0.20 mg/dL 0.20-1.00 [facility] Comment on above: For patients on eltr ombopag therapy, use of [place] TBIL is not recommended. Chloride [Moles/Vol] 107 mmol/L 98-107 [facility] Eosinophils/100 WBC (Bld) 6.7 % 0-5 [facility] Glucose [Mass/Vol] 88 mg/dL 74-106 [facility] Neutrophils (Bld) [#/Vol] 4.3 10*3/uL 2.0-7.7 [facility] Neutrophils/100 WBC (Bld) 57.4 % 47-70 [facility] Potassium [Moles/Vol] 4.9 mmol/L 3.5-5.1 [facility] Protein [Mass/Vol] 7.1 g/dL 6.4-8.2 [facility] Sodium [Moles/Vol] 140 mmol/L 136-145 [facility] WBC (Bld) [#/Vol] 7.5 10*3/uL 4.4-11.0 [facility] Blood erythrocytes count (nu mber/volume)Ordered By: Amanda Daugherty on 05-05-2023 RBC (Bld) [#/Vol] 4.52 10*6/uL 4.2-5.4 [facility] Blood hemoglobin measurement (mass/volume)Ordered By: Amanda Daugherty on 05-05-2023 Hemoglobin (Bld) [Mass/Vol] 13.1 g/dL 12.0-15.0 [facility] Blood lymphocytes/100 leukoc ytesOrdered By: Amanda Daugherty on 05-05-2023 Lymphocytes/100 WBC (Bld) 22.8 % 19-41 [facility] Blood monocytes/100 leukocyt esOrdered By: Amanda Daugherty on 05-05-2023 Monocytes/100 WBC (Bld) 11.7 % 0-10 [facility] Blood platelet mean volumeOr dered By: Amanda Daugherty on 05-05-2023 Platelet mean volume (Bld) [Entitic vol] 10.4 fL 6.2-12.0 [facility] Determination of erythrocyte mean corpuscular volume (MCV)Ordered By: Amanda Daugherty on 05-05-2023 MCV (RBC) [Entitic vol] 95.1 fL 81-99 [facility] Hematocrit Auto (Bld) [Volum e fraction]Ordered By: Amanda Daugherty on 05-05-2023 Hematocrit (Bld) [Volume fraction] 43.0 % 37-47 [facility] - Chemistry and C hemistry - challengeOrdered By: Amanda Daugherty on 05-05-2023 ALP [Catalytic activity/Vol] 128 U/L 45-117 [facility] ALT [Catalytic activity/Vol] 17 U/L 13-56 [facility] CO2 [Moles/Vol] 29.0 mmol/L 21.0-32.0 [facility] Free T4 [Mass/Vol] 1.01 ng/dL 0.76-1.46 [facility] Globulin (S) [Mass/Vol] 3.8 g/dL 2.2-4.2 [facility] Urea nitrogen/Creatinine [Mass ratio] 22.6 mg/mg 10-20 [facility] - Hematology and Cell countsOrdered By: Amanda Daugherty on 05-05-2023 Erythrocyte distribution width (RBC) [Entitic vol] 49.0 fL 35.1-43.9 [facility] Erythrocyte distribution width (RBC) [Ratio] 14.1 % 11.6-14.6 [facility] Immature granulocytes/100 WBC (Bld) 0.700 % 0.0-0.9 [facility] Comment on above: IG% - Immature Granu locytes (promyelocytes, myelocytes and metamyelocytes) > 1% indicates that a LEFT SHIFT is Present. MCH (RBC) [Entitic mass] 29.0 pg 27.0-32.0 [facility] Nucleated RBC/100 WBC (Bld) [Ratio] 0 % 0-5 [facility] MCHC Auto (RBC) [Mass/Vol]Or dered By: Amanda Daugherty on 05-05-2023 MCHC (RBC) [Mass/Vol] 30.5 g/dL 32-36 [facility] No Panel InformationOrdered By: Amanda Daugherty on 05-05-2023 Estimated GFR (MDRD) Amer 74 mL/min >60 [facility] Comment on above: GFR Calc Estimated GFR (MDRD) Non-Af Amer 61 mL/min >60 [facility] Comment on above: Non- GFR Calc Free Triiodothyronine (T3) pg/dL 1.8 pg/mL 2.18-3.98 [facility] Thyroid Stimulating Hormone (TSH) 0.33 uIU/mL 0.358-3.74 [facility] Vitamin D 25-Hydroxy 68.6 ng/mL [facility] Comment on above: Vitamin D 25(OH) Sta tus Range Deficiency <20 ng/mL (50nmol/L) Insufficiency 20 - 30 ng/mL (50 - 75 nmol/L) Sufficiency 30 - 100 ng/mL (75 - 250 nmol/L) Toxicity >100 ng/mL (>250 nmol/L) Platelets bldOrdered By: Martín Daugherty on 05-05-2023 Platelets (Bld) [#/Vol] 234 10*3/uL 150-450 [facility] Serum or plasma albumin jose urement (mass/volume)Ordered By: Amanda Daugherty on 05-05-2023 Albumin [Mass/Vol] 3.3 g/dL 3.2-5.0 [facility] Serum or plasma albumin/glob ulin mass ratioOrdered By: Amanda Daugherty on 05-05-2023 Albumin/Globulin [Mass ratio] 0.9 {ratio} 0.9-2.4 [facility] Serum or plasma calcium jose urement (mass/volume)Ordered By: Amanda Daugherty on 05-05-2023 Calcium [Mass/Vol] 9.5 mg/dL 8.5-10.1 [facility] Serum or plasma creatinine m easurement (mass/volume)Ordered By: Amanda Daugherty on 05-05-2023 Creatinine [Mass/Vol] 0.93 mg/dL 0.55-1.02 [facility] Comment on above: The validity of the calculated GFR & GFRAA in patients over 70 years has not been determined. Clinical correlation is essential. Serum or plasma urea nitroge n measurement (mass/volume)Ordered By: Amanda Daugherty on 05-05-2023 Urea nitrogen [Mass/Vol] 21 mg/dL 7-18 [facility] Thin prep Papanicolaou smear with manual screeningOrdered By: Amanda Daugherty on 05-05-2023 Thin prep Papanicolaou smear with manual screening 19 U/L 15-37 [facility] Thin prep Papanicolaou smear with manual screening 4 5-15 [facility] Basophil percentageon 2021 Basophil percentage < 0.9 mg/dL 0.55-1.02 [facility] Work Phone: No Panel Informationon 08-28 Bedside Estimated GFR (eGFR) > 60.0000 mL/min >60 [facility] Work Phone: UA DIP, URINE (POC)on 2021 BILIRUBIN UA (POCT) Negative Negative [facility] CLARITY UA (POCT) Cloudy [facility] COLOR UA (POCT) Other [facility] GLUCOSE UA (POCT) Negative Negative mg/dL [facility] HEMOGLOBIN/BLOOD UA (POCT) Trace-intact Abnormal Negative [facility] KETONE UA (POCT) Negative Negative mg/dL [facility] LEUKOCYTES UA (POCT) Moderate Abnormal Negative [facility] NITRITE UA (POCT) Positive Abnormal [facility] ([facility]CT) 5.5 4.5 - 8.0 [facility] Protein Ql (U) 30 mg/dL Abnormal Negative mg/dL [facility] SPECIFIC GRAVITY UA (POCT) 1.020 1.005 - 1.030 [facility] UROBILINOGEN UA (POCT) 0.2 E.U./dL Diamond l E.U./dL [facility] XR CHEST 2V FRONTAL/LATon [facility] XR Chest PA and Lateralon IMPRESSION: No acute radiographic abnormality. Renewals Specialist: PSCB Transcribe Date/Time: Jan 23 2022 3:39P Dictated by : MARY HERRON MD This examination was interpreted and the report reviewed and electronically signed by: MARY HERRON MD on Jan 23 2022 3:41PM EST [id number] _DIVISION OF RADIOLOGY * * *Final Report* * [...] silhouette. Bones and soft tissues: Unremarkable. [id number] _DIVISION OF RADIOLOGY Provider, [facility] - 01/23/2022 * * *Final Report* * [...] Unremarkable. IMPRESSION IMPRESSION: No acute radiographic abnormality. Renewals Specialist: TEMO Transcribe Date/Time: Jan 23 2022 3:39P Dictated by : MARY HERRON MD This examination was interpreted and the report reviewed and electronically signed by: MARY HERRON MD on Jan 23 2022 3:41PM EST [facility] Radiology [facility] (narrative) [facility] Chest PA and LateralOrder ed By: [facility] Provider on 01-23-2022 [facility] Office Visit: acute- worseni ng coughon 07-27-2017 Alcoholism counseling (procedure) no Invalid Interpretation Code [facility] Work Phone: Dietary management education, guidance, and counseling (procedure) yes Invalid Interpretation Code [facility] Work Phone: Documentation of current medications (procedure) Done Invalid Interpretation Code [facility] Work Phone: Tobacco smoking status AKIS Never Invalid Interpretation Code [facility] Work Phone: Tobacco use [facility] Former smoker Invalid Interpretation Code [facility] Work Phone: Office Visit: HX PE, asthma, bronchiectasis & asthmaon 07-24-2017 Alcoholism counseling (procedure) no Invalid Interpretation Code [facility] Work Phone: Dietary management education, guidance, and counseling (procedure) yes Invalid Interpretation Code [facility] Work Phone: Documentation of current medications (procedure) Done Invalid Interpretation Code [facility] Work Phone: Tobacco smoking status AKIS Never Invalid Interpretation Code [facility] Work Phone: Tobacco use [facility] Former smoker Invalid Interpretation Code [facility] Work Phone: Office Visit: hiatal herniao n 05-05-2017 Fall risk assessment No Invalid Interpretation Code [facility] Work Phone: Lab Report: Thyroid Stim Hor dada (TSH)on 03-05-2017 Thyroid stimulating hormone (TSH) 0.39 u[iU]/mL Invalid Interpretation Code 0.358-3.74 [facility] Work Phone: Rx Refill: eRx Request for F LUTICASONE PROPIONATE 50 MCG/ACT Suspensionon 02-05-2017 [id number]`FLUTICASONE PROPIONATE 50 MCG/ACT Suspension```48 Gram`90`USE 2 SPRAYS IN EACH NOSTRIL EVERY DAY``4`0`11/27/2016`N o date sent`[facility]*`[id number]`FLUTICAS ONE PROPIONATE 50 MCG/ACT Suspension Quantity: 48 Gram Instructions: USE 2 SPRAYS IN EACH NOSTRIL EVERY DAY [facility] Work Phone: No Panel Information [facility] Vital Signs Date Time Vital Sign Value Performing Clinician Facility 04-07-2025 10:28-040 Body height 157.5 cm Ashely Miller MD Work Phone: [facility] 04-07-2025 10:28-0400 Body mass index (BMI) [Ratio] 28.17 kg/m2 Ashely Miller MD Work Phone: [facility] 04-07-2025 10:28-040 Body weight 69.85 kg Ashely Miller MD Work Phone: [facility] 04-07-2025 10:28-040 Diastolic blood pressure 78 mm[Hg] Ashely Miller MD Work Phone: [facility] 04-07-2025 10:28-0400 Heart rate 60 /min Ashely Miller MD Work Phone: [facility] 04-07-2025 10:28-040 Respiratory rate 16 /min Ashely Miller MD Work Phone: [facility] 04-07-2025 10:28-0400 SaO2% (BldA) [Mass fraction] 92 % sAhely Miller MD Work Phone: [facility] 04-07-2025 10:28-0400 Systolic blood pressure 128 mm[Hg] Ashely Miller MD Work Phone: [facility] 03-31-2025 13:32-0400 Body height 157.[address] Ken Contreras MD Work Phone: [facility] 03-31-2025 13:32-0400 Body mass index (BMI) [Ratio] 28 kg/m2 Dr. Ken Contreras MD Work Phone: [facility] 03-31-2025 13:32-0400 Body weight 69.[address] Ken Contreras MD Work Phone: [facility] 03-31-2025 13:32-0400 Diastolic blood pressure 60 mm[Hg] Dr. Ken Contreras MD Work Phone: [facility] 03-31-2025 13:32-0400 Heart rate 60 /min Dr. Ken Contreras MD Work Phone: [facility] 03-31-2025 13:32-0400 Systolic blood pressure 98 mm[Hg] Dr. Ken Contreras MD Work Phone: [facility] 03-28-2025 16:53-0400 Body mass index (BMI) [Ratio] 27.36 kg/m2 Jorge Jordan APRN.TOY CONSULTANT Work Phone: [facility] 03-28-2025 16:53-0400 Body temperature 97.39 [degF] Jorge Jordan APRN.TOY CONSULTANT Work Phone: [facility] 03-28-2025 16:53-0400 Body weight 70.3 kg Jorge Jordan APRN.TOY CONSULTANT Work Phone: [facility] 03-28-2025 16:53-0400 Diastolic blood pressure 78 mm[Hg] Jorge Jordan APRN.TOY CONSULTANT Work Phone: [facility] 03-28-2025 16:53-0400 Heart rate 60 /min Jorge Jordan APRN.TOY CONSULTANT Work Phone: [facility] 03-28-2025 16:53-0400 Respiratory rate 18 /min Jorge Jordan APRN.TOY CONSULTANT Work Phone: [facility] 03-28-2025 16:53-0400 SaO2% (BldA) [Mass fraction] 95 % Jorge Jordan APRN.TOY CONSULTANT Work Phone: [facility] 03-28-2025 16:53-0400 Systolic blood pressure 122 mm[Hg] Jorge Jordan APRN.TOY CONSULTANT Work Phone: [facility] 03-23-2025 13:14-0400 Body mass index (BMI) [Ratio] 27.55 kg/m2 Dian Rodas MD Work Phone: [facility] 03-23-2025 13:14-0400 Body weight 70.8 kg Dian Rodas MD Work Phone: [facility] 03-23-2025 13:14-0400 Diastolic blood pressure 77 mm[Hg] Dian Rodas MD Work Phone: [facility] 03-23-2025 13:14-0400 Heart rate 60 /min Dian Rodas MD Work Phone: [facility] 03-23-2025 13:14-0400 SaO2% (BldA) [Mass fraction] 97 % Dian Rodas MD Work Phone: [facility] 03-23-2025 13:14-0400 Systolic blood pressure 126 mm[Hg] Dian Rodas MD Work Phone: [facility] 03-02-2025 11:49-0400 Body mass index (BMI) [Ratio] 27.9 kg/m2 Ken Contreras MD Work Phone: [facility] 03-02-2025 11:49-0400 Body weight 71.7 kg Ken Contreras MD Work Phone: [facility] 03-02-2025 11:49-0400 Diastolic blood pressure 68 mm[Hg] Ken Contreras MD Work Phone: [facility] 03-02-2025 11:49-0400 Heart rate 64 /min Ken Contreras MD Work Phone: [facility] 03-02-2025 11:49-0400 Respiratory rate 20 /min Ken Contreras MD Work Phone: [facility] 03-02-2025 11:49-0400 Systolic blood pressure 102 mm[Hg] Ken Contreras MD Work Phone: [facility] 02-15-2025 17:49-0400 Body temperature 98.2 [degF] Dr. Ken Contreras MD Work Phone: [facility] 02-15-2025 17:49-0400 Diastolic blood pressure 68 mm[Hg] Dr. Ken Contreras MD Work Phone: [facility] 02-15-2025 17:49-0400 Heart rate 61 /min Dr. Ken Contreras MD Work Phone: [facility] 02-15-2025 17:49-0400 Respiratory rate 18 /min Dr. Ken Contreras MD Work Phone: [facility] 02-15-2025 17:49-0400 SaO2% (BldA) [Mass fraction] 96 % Dr. Ken Contreras MD Work Phone: [facility] 02-15-2025 17:49-0400 Systolic blood pressure 116 mm[Hg] Dr. Ken Contreras MD Work Phone: [facility] 02-15-2025 16:03-0400 Body mass index (BMI) [Ratio] 31.1 kg/m2 Dr. Ken Contreras MD Work Phone: 4(693)225-648921 [place] [address] 02-15-2025 16:03-0400 Body weight 77.[address] Ken Contreras MD Work Phone: 5(846)863-388621 [place] [address] 02-15-2025 14:14-0400 Body height 157.[address] Ken Contreras MD Work Phone: [facility] 02-03-2025 14:51-0400 Body height 160.3 cm Pulm Wstr Work Phone: [facility] 02-03-2025 14:51-0400 Body mass index (BMI) [Ratio] 28.6 kg/m2 Pulm Wstr Work Phone: [facility] 02-03-2025 14:51-0400 Body weight 73.48 kg Pulm Wstr Work Phone: [facility] 02-03-2025 14:51-0400 Heart rate 74 /min Pulm Wstr Work Phone: [facility] 02-03-2025 14:51-0400 Respiratory rate 14 /min Pulm Wstr Work Phone: [facility] 02-02-2025 15:40-0400 Body mass index (BMI) [Ratio] 29.48 kg/m2 Ken Contreras MD Work Phone: [facility] 02-02-2025 15:40-0400 Body weight 73.1 kg Ken Contreras MD Work Phone: [facility] 02-02-2025 15:40-0400 Diastolic blood pressure 74 mm[Hg] Ken Contreras MD Work Phone: [facility] 02-02-2025 15:40-0400 Heart rate 60 /min Ken Contreras MD Work Phone: [facility] 02-02-2025 15:40-0400 Respiratory rate 18 /min Ken Contreras MD Work Phone: [facility] 02-02-2025 15:40-0400 Systolic blood pressure 104 mm[Hg] Ken Contreras MD Work Phone: [facility] 01-11-2025 15:28-0400 Diastolic blood pressure 56 mm[Hg] Ailyn Spanower IT DIRECTOR.TOY CONSULTANT Work Phone: [facility] 01-11-2025 15:28-0400 Heart rate 60 /min Ailyn Spanower IT DIRECTOR.TOY CONSULTANT Work Phone: [facility] 01-11-2025 15:28-0400 Respiratory rate 16 /min Ailyn Wyattower IT DIRECTOR.TOY CONSULTANT Work Phone: [facility] 01-11-2025 15:28-0400 SaO2% (BldA) [Mass fraction] 95 % Ailyn Wyattower IT DIRECTOR.TOY CONSULTANT Work Phone: [facility] 01-11-2025 15:28-0400 Systolic blood pressure 90 mm[Hg] Ailyn Bonner IT DIRECTOR.TOY CONSULTANT Work Phone: [facility] 01-05-2025 15:38-0400 Body height 157.5 cm Ken Contreras MD Work Phone: [facility] 01-05-2025 15:38-0400 Body mass index (BMI) [Ratio] 30.08 kg/m2 Ken Contreras MD Work Phone: [facility] 01-05-2025 15:38-0400 Body weight 74.6 kg Ken Contreras MD Work Phone: [facility] 01-05-2025 15:38-0400 Diastolic blood pressure 66 mm[Hg] Ken Contreras MD Work Phone: [facility] 01-05-2025 15:38-0400 Heart rate 60 /min Ken Contreras MD Work Phone: [facility] 01-05-2025 15:38-0400 Respiratory rate 18 /min Ken Contreras MD Work Phone: [facility] 01-05-2025 15:38-0400 Systolic blood pressure 118 mm[Hg] Ken Contreras MD Work Phone: [facility] 12-14-2024 14:03-0400 Diastolic blood pressure 72 mm[Hg] Cami Mars MD Work Phone: [facility] 12-14-2024 14:03-0400 Heart rate 72 /min Cami Mars MD Work Phone: [facility] 12-14-2024 14:03-0400 Respiratory rate 16 /min Cami Mars MD Work Phone: [facility] 12-14-2024 14:03-0400 SaO2% (BldA) [Mass fraction] 96 % Cami Mars MD Work Phone: [facility] 12-14-2024 14:03-0400 Systolic blood pressure 116 mm[Hg] Cami Mars MD Work Phone: [facility] 11-24-2024 17:54-0400 Body mass index (BMI) [Ratio] 31.01 kg/m2 Ken Contreras MD Work Phone: [facility] 11-24-2024 17:54-0400 Body weight 76.9 kg Ken Contreras MD Work Phone: [facility] 11-24-2024 17:54-0400 Diastolic blood pressure 59 mm[Hg] Ken Contreras MD Work Phone: [facility] 11-24-2024 17:54-0400 Heart rate 75 /min Ken Contreras MD Work Phone: [facility] 11-24-2024 17:54-0400 Respiratory rate 16 /min Ken Contreras MD Work Phone: [facility] 11-24-2024 17:54-0400 Systolic blood pressure 116 mm[Hg] Ken Contreras MD Work Phone: [facility] 10-20-2024 13:29-0500 Body mass index (BMI) [Ratio] 30.73 kg/m2 Ashely Miller MD Work Phone: [facility] 10-20-2024 13:29-0500 Body weight 76.2 kg Ashely Miller MD Work Phone: [facility] 10-20-2024 13:29-0500 Diastolic blood pressure 80 mm[Hg] Ashely Miller MD Work Phone: [facility] 10-20-2024 13:29-0500 Heart rate 60 /min Ashely Miller MD Work Phone: [facility] 10-20-2024 13:29-0500 Respiratory rate 14 /min Ashely Miller MD Work Phone: [facility] 10-20-2024 13:29-0500 SaO2% (BldA) [Mass fraction] 96 % Ashely Miller MD Work Phone: [facility] 10-20-2024 13:29-0500 Systolic blood pressure 126 mm[Hg] Ashely Miller MD Work Phone: [facility] 10-11-2024 14:40-0500 Body mass index (BMI) [Ratio] 30.85 kg/m2 Dia Hussain IT DIRECTOR.TOY CONSULTANT Work Phone: [facility] 10-11-2024 14:40-0500 Body weight 76.5 kg Dia Hussain IT DIRECTOR.TOY CONSULTANT Work Phone: [facility] 10-11-2024 14:40-0500 Diastolic blood pressure 72 mm[Hg] Dia Hussain IT DIRECTOR.TOY CONSULTANT Work Phone: [facility] 10-11-2024 14:40-0500 Heart rate 58 /min Dia Hussain IT DIRECTOR.TOY CONSULTANT Work Phone: [facility] 10-11-2024 14:40-0500 Respiratory rate 16 /min Dia Hussain IT DIRECTOR.TOY CONSULTANT Work Phone: [facility] 10-11-2024 14:40-0500 SaO2% (BldA) [Mass fraction] 96 % Dia Hussain IT DIRECTOR.TOY CONSULTANT Work Phone: [facility] 10-11-2024 14:40-0500 Systolic blood pressure 120 mm[Hg] Dia Hussain IT DIRECTOR.TOY CONSULTANT Work Phone: [facility] 09-05-2024 20:00-0500 Body temperature 98.4 [degF] Dr. Ken Contreras MD Work Phone: [facility] 09-05-2024 20:00-0500 Diastolic blood pressure 92 mm[Hg] Dr. Ken Contreras MD Work Phone: 7(045)424-126559 [place] [address] 09-05-2024 20:00-0500 Heart rate 62 /min Dr. Ken Contreras MD Work Phone: 9(627)657-720159 [place] [address] 09-05-2024 20:00-0500 Respiratory rate 16 /min Dr. Ken Contreras MD Work Phone: 2(727)332-691659 [place] [address] 09-05-2024 20:00-0500 SaO2% (BldA) [Mass fraction] 98 % Dr. Ken Contreras MD Work Phone: 3(007)484-551759 [place] [address] 09-05-2024 20:00-0500 Systolic blood pressure 146 mm[Hg] Dr. Ken Contreras MD Work Phone: 6(934)314-703159 [place] [address] 09-05-2024 17:11-0500 Body height 157.[address] Ken Contreras MD Work Phone: 9(830)777-711059 [place] [address] 09-05-2024 17:11-0500 Body mass index (BMI) [Ratio] 31.4 kg/m2 Dr. Ken Contreras MD Work Phone: 2(119)303-946459 [place] [address] 09-05-2024 17:11-0500 Body weight 77.[address] Ken Contreras MD Work Phone: 0(552)098-902659 [place] [address] 08-08-2024 18:31-0500 Body temperature 97.2 [degF] Dr. Ken Contreras MD Work Phone: 9(270)001-700559 [place] [address] 08-08-2024 18:31-0500 Diastolic blood pressure 73 mm[Hg] Dr. Ken Contreras MD Work Phone: 0(799)181-697259 [place] [address] 08-08-2024 18:31-0500 Heart rate 59 /min Dr. Ken Contreras MD Work Phone: 0(608)018-713159 [place] [address] 08-08-2024 18:31-0500 Respiratory rate 18 /min Dr. Ken Contreras MD Work Phone: [facility] 08-08-2024 18:31-0500 SaO2% (BldA) [Mass fraction] 96 % Dr. Ken Contreras MD Work Phone: [facility] 08-08-2024 18:31-0500 Systolic blood pressure 118 mm[Hg] Dr. Ken Contreras MD Work Phone: [facility] 08-08-2024 14:48-0500 Body mass index (BMI) [Ratio] 31.2 kg/m2 Dr. Ken Contreras MD Work Phone: [facility] 08-08-2024 14:48-0500 Body weight 77.[address] Ken Contreras MD Work Phone: [facility] 07-08-2024 10:20-0400 Body mass index (BMI) [Ratio] 31.29 kg/m2 Jyotsna Charanjit IT DIRECTOR.TOY CONSULTANT Work Phone: [facility] 07-08-2024 10:20-0400 Body weight 77.6 kg Jyotsna Charanjit IT DIRECTOR.TOY CONSULTANT Work Phone: [facility] 07-08-2024 10:20-0400 Diastolic blood pressure 82 mm[Hg] Jyotsna Charanjit IT DIRECTOR.TOY CONSULTANT Work Phone: [facility] 07-08-2024 10:20-0400 Heart rate 64 /min Jyotsna Charanjit IT DIRECTOR.TOY CONSULTANT Work Phone: [facility] 07-08-2024 10:20-0400 Respiratory rate 18 /min Jyotsna Charanjit IT DIRECTOR.TOY CONSULTANT Work Phone: [facility] 07-08-2024 10:20-0400 SaO2% (BldA) [Mass fraction] 94 % Jyotsna Charanjit IT DIRECTOR.TOY CONSULTANT Work Phone: [facility] 07-08-2024 10:20-0400 Systolic blood pressure 127 mm[Hg] Jyotsna Charanjit IT DIRECTOR.TOY CONSULTANT Work Phone: [facility] 07-06-2024 14:41-0400 Diastolic blood pressure 82 mm[Hg] Ailyn Spanower IT DIRECTOR.TOY CONSULTANT Work Phone: [facility] 07-06-2024 14:41-0400 Heart rate 63 /min Ailyn Spanower IT DIRECTOR.TOY CONSULTANT Work Phone: [facility] 07-06-2024 14:41-0400 Respiratory rate 16 /min Ailyn Spanower IT DIRECTOR.TOY CONSULTANT Work Phone: [facility] 07-06-2024 14:41-0400 SaO2% (BldA) [Mass fraction] 93 % Ailyn Spanower IT DIRECTOR.TOY CONSULTANT Work Phone: [facility] 07-06-2024 14:41-0400 Systolic blood pressure 118 mm[Hg] Ailyn Spanower IT DIRECTOR.TOY CONSULTANT Work Phone: [facility] 05-27-2024 08:21-0400 Diastolic blood pressure 80 mm[Hg] Ken Contreras MD Work Phone: [facility] 05-27-2024 08:21-0400 Systolic blood pressure 130 mm[Hg] Ken Contreras MD Work Phone: [facility] 05-27-2024 08:18-0400 Body mass index (BMI) [Ratio] 30.81 kg/m2 Ken Contreras MD Work Phone: [facility] 05-27-2024 08:18-0400 Body weight 76.4 kg Ken Contreras MD Work Phone: [facility] 05-27-2024 08:18-0400 Heart rate 64 /min Ken Contreras MD Work Phone: [facility] 05-27-2024 08:18-0400 Respiratory rate 18 /min Ken Contreras MD Work Phone: [facility] 05-26-2024 15:00-0400 Diastolic blood pressure 67 mm[Hg] Jackie Lainez PT [facility] 05-26-2024 15:00-0400 Heart rate 60 /min Jackie Lainez PT [facility] 05-26-2024 15:00-0400 SaO2% (BldA) [Mass fraction] 92 % Jackie Lainez PT [facility] 05-26-2024 15:00-0400 Systolic blood pressure 116 mm[Hg] Jackie Lainez PT [facility] 05-20-2024 11:00-0400 SaO2% (BldA) [Mass fraction] 89 % Kaela Brasher CRYPTOGRAPHY TEACHER Work Phone: [facility] Comment on above: at start of session, recovered to 98 aft er 2 minutes 05-13-2024 09:44-0400 Body mass index (BMI) [Ratio] 31.21 kg/m2 Dia Hussain IT DIRECTOR.TOY CONSULTANT Work Phone: [facility] 05-13-2024 09:44-0400 Body weight 77.4 kg Dia Lopez IT DIRECTOR.TOY CONSULTANT Work Phone: [facility] 05-13-2024 09:44-0400 Diastolic blood pressure 72 mm[Hg] Dia JinHussain IT DIRECTOR.TOY CONSULTANT Work Phone: [facility] 05-13-2024 09:44-0400 Heart rate 62 /min Dia JinHussain IT DIRECTOR.TOY CONSULTANT Work Phone: [facility] 05-13-2024 09:44-0400 Respiratory rate 18 /min Dia JinHussain IT DIRECTOR.TOY CONSULTANT Work Phone: [facility] 05-13-2024 09:44-0400 SaO2% (BldA) [Mass fraction] 95 % Dia JinHussain IT DIRECTOR.TOY CONSULTANT Work Phone: [facility] 05-13-2024 09:44-0400 Systolic blood pressure 124 mm[Hg] Dia Hussain IT DIRECTOR.TOY CONSULTANT Work Phone: [facility] 05-12-2024 11:00-0400 SaO2% (BldA) [Mass fraction] 97 % Kaela Brasher CRYPTOGRAPHY TEACHER Work Phone: [facility] 04-26-2024 15:00-0400 Diastolic blood pressure 78 mm[Hg] Jackie Lainez PT [facility] 04-26-2024 15:00-0400 Heart rate 70 /min Jackie Lainez PT [facility] 04-26-2024 15:00-0400 SaO2% (BldA) [Mass fraction] 95 % Jackie Lainez PT [facility] 04-26-2024 15:00-0400 Systolic blood pressure 113 mm[Hg] Jackie Lainez PT [facility] 04-18-2024 08:05-0400 Body mass index (BMI) [Ratio] 31.31 kg/m2 Kaya Cartwright Jr., MD Work Phone: [facility] 04-18-2024 08:05-0400 Body weight 77.66 kg Kaya Cartwright Jr., MD Work Phone: [facility] 04-18-2024 08:05-0400 Diastolic blood pressure 78 mm[Hg] Kaya Cartwright Jr., MD Work Phone: [facility] 04-18-2024 08:05-0400 Heart rate 60 /min Kaya Cartwright Jr., MD Work Phone: [facility] 04-18-2024 08:05-0400 SaO2% (BldA) [Mass fraction] 95 % Kaya Cartwright Jr., MD Work Phone: [facility] 04-18-2024 08:05-0400 Systolic blood pressure 122 mm[Hg] Kaya Cartwright Jr., MD Work Phone: [facility] 03-30-2024 14:54-0400 Body height 157.5 cm Dia Lopez APRN.TOY CONSULTANT Work Phone: [facility] 03-30-2024 14:54-0400 Body mass index (BMI) [Ratio] 30.54 kg/m2 Dia Lopez APRN.TOY CONSULTANT Work Phone: [facility] 03-30-2024 14:54-0400 Body weight 75.75 kg Dia Lopez APRN.TOY CONSULTANT Work Phone: [facility] 03-30-2024 14:54-0400 Diastolic blood pressure 72 mm[Hg] Dia Hussain IT DIRECTOR.TOY CONSULTANT Work Phone: [facility] 03-30-2024 14:54-0400 Heart rate 60 /min Dia Hussain IT DIRECTOR.TOY CONSULTANT Work Phone: [facility] 03-30-2024 14:54-0400 Respiratory rate 12 /min Dia Hussain IT DIRECTOR.TOY CONSULTANT Work Phone: [facility] 03-30-2024 14:54-0400 SaO2% (BldA) [Mass fraction] 95 % Dia SolHussain IT DIRECTOR.TOY CONSULTANT Work Phone: [facility] 03-30-2024 14:54-0400 Systolic blood pressure 130 mm[Hg] Dia Hussain IT DIRECTOR.TOY CONSULTANT Work Phone: [facility] 01-21-2024 13:47-0400 Body height 157.5 cm Michelle Vazquez IT DIRECTOR.TOY CONSULTANT Work Phone: [facility] 01-21-2024 13:47-0400 Body mass index (BMI) [Ratio] 30.89 kg/m2 Michelle Vazquez IT DIRECTOR.TOY CONSULTANT Work Phone: [facility] 01-21-2024 13:47-0400 Body weight 76.6 kg Michelle Vazquez IT DIRECTOR.TOY CONSULTANT Work Phone: [facility] 01-21-2024 13:47-0400 Diastolic blood pressure 75 mm[Hg] Michelle Beasleygatbetzy IT DIRECTOR.TOY CONSULTANT Work Phone: [facility] 01-21-2024 13:47-0400 Heart rate 59 /min Michelleblanche Vazquez IT DIRECTOR.TOY CONSULTANT Work Phone: [facility] 01-21-2024 13:47-0400 SaO2% (BldA) [Mass fraction] 92 % Michelle Vazquez IT DIRECTOR.TOY CONSULTANT Work Phone: [facility] 01-21-2024 13:47-0400 Systolic blood pressure 115 mm[Hg] Michelle Fegatelli IT DIRECTOR.TOY CONSULTANT Work Phone: [facility] 01-06-2024 14:44-0400 Body mass index (BMI) [Ratio] 30.89 kg/m2 Ailyn Wyattower IT DIRECTOR.TOY CONSULTANT Work Phone: [facility] 01-06-2024 14:44-0400 Body weight 76.6 kg Ailyn Wyattower IT DIRECTOR.TOY CONSULTANT Work Phone: [facility] 01-06-2024 14:44-0400 Diastolic blood pressure 55 mm[Hg] Ailyn Wyattower IT DIRECTOR.TOY CONSULTANT Work Phone: [facility] 01-06-2024 14:44-0400 Heart rate 60 /min Ailyn Wyattower IT DIRECTOR.TOY CONSULTANT Work Phone: [facility] 01-06-2024 14:44-0400 SaO2% (BldA) [Mass fraction] 95 % Ailyn Wyattower IT DIRECTOR.TOY CONSULTANT Work Phone: [facility] 01-06-2024 14:44-0400 Systolic blood pressure 122 mm[Hg] Ailyn Wyattower IT DIRECTOR.TOY CONSULTANT Work Phone: [facility] 11-09-2023 14:23-0500 Body height 157.5 cm Tremaine Landon MD Work Phone: [facility] 11-09-2023 14:23-0500 Body weight 78.02 kg Tremaine Landon MD Work Phone: [facility] 11-09-2023 14:23-0500 Diastolic blood pressure 84 mm[Hg] Tremaine Landon MD Work Phone: [facility] 11-09-2023 14:23-0500 Heart rate 71 /min Tremaine Landon MD Work Phone: [facility] 11-09-2023 14:23-0500 Respiratory rate 16 /min Tremaine Landon MD Work Phone: [facility] 11-09-2023 14:23-0500 Systolic blood pressure 148 mm[Hg] Tremaine Landon MD Work Phone: [facility] 10-22-2023 14:36-0500 Body height 162.6 cm Michelle Fegatelli IT DIRECTOR.TOY CONSULTANT Work Phone: [facility] 10-22-2023 14:36-0500 Body weight 77.5 kg Michelle Fegatelli IT DIRECTOR.TOY CONSULTANT Work Phone: [facility] 10-22-2023 14:36-0500 Diastolic blood pressure 76 mm[Hg] Michelle Fegatelli IT DIRECTOR.TOY CONSULTANT Work Phone: [facility] 10-22-2023 14:36-0500 Heart rate 60 /min Michelle Fegatelli IT DIRECTOR.TOY CONSULTANT Work Phone: [facility] 10-22-2023 14:36-0500 Respiratory rate 16 /min Michelle Fegatelli IT DIRECTOR.TOY CONSULTANT Work Phone: [facility] 10-22-2023 14:36-0500 SaO2% (BldA) [Mass fraction] 95 % Michelle Fegatelli IT DIRECTOR.TOY CONSULTANT Work Phone: [facility] 10-22-2023 14:36-0500 Systolic blood pressure 114 mm[Hg] Michelle Fegatelli IT DIRECTOR.TOY CONSULTANT Work Phone: [facility] 10-14-2023 11:44-0500 Body temperature 98.6 [degF] Ken Contreras MD Work Phone: [facility] 10-14-2023 11:44-0500 Body weight 76.52 kg Ken Contreras MD Work Phone: [facility] 10-14-2023 11:44-0500 Diastolic blood pressure 66 mm[Hg] Ken Contreras MD Work Phone: [facility] 10-14-2023 11:44-0500 Heart rate 60 /min Ken Contreras MD Work Phone: [facility] 10-14-2023 11:44-0500 Respiratory rate 12 /min Ken Contreras MD Work Phone: [facility] 10-14-2023 11:44-0500 Systolic blood pressure 110 mm[Hg] Ken Contreras MD Work Phone: [facility] 10-02-2023 21:30-0500 Diastolic blood pressure 68 mm[Hg] Dr. Ken Contreras Work Phone: [facility] 10-02-2023 21:30-0500 Heart rate 60 /min Dr. Ken Contreras Work Phone: [facility] 10-02-2023 21:30-0500 Respiratory rate 15 /min Dr. Ken Contreras Work Phone: [facility] 10-02-2023 21:30-0500 SaO2% (BldA) [Mass fraction] 98 % Dr. Ken Contreras Work Phone: [facility] 10-02-2023 21:30-0500 Systolic blood pressure 160 mm[Hg] Dr. Ken Contreras Work Phone: [facility] 10-02-2023 18:51-0500 Body height 157.[address] Ken Contreras Work Phone: [facility] 10-02-2023 18:51-0500 Body temperature 97.9 [degF] Dr. Ken Contreras Work Phone: [facility] 09-30-2023 14:38-0500 Body height 158.5 cm Dia Lopez IT DIRECTOR.TOY CONSULTANT Work Phone: [facility] 09-30-2023 14:38-0500 Body weight 78.02 kg Dia Lopez IT DIRECTOR.TOY CONSULTANT Work Phone: [facility] 09-30-2023 14:38-0500 Diastolic blood pressure 78 mm[Hg] Dia Lopez IT DIRECTOR.TOY CONSULTANT Work Phone: [facility] 09-30-2023 14:38-0500 Heart rate 61 /min Dia Lopez APRN.TOY CONSULTANT Work Phone: [facility] 09-30-2023 14:38-0500 Respiratory rate 16 /min Dia Hussain IT DIRECTOR.TOY CONSULTANT Work Phone: [facility] 09-30-2023 14:38-0500 SaO2% (BldA) [Mass fraction] 97 % Dia JinHussain IT DIRECTOR.TOY CONSULTANT Work Phone: [facility] 09-30-2023 14:38-0500 Systolic blood pressure 108 mm[Hg] Dia SolHussain IT DIRECTOR.TOY CONSULTANT Work Phone: 2(457)485-4467[address] [place] [address] 08-07-2023 13:43-0500 Body mass index (BMI) [Ratio] 31.8 kg/m2 Dr. Ken Contreras Work Phone: 2(060)842-091921 [place] [address] 08-07-2023 13:43-0500 Body weight 78.[address] Ken Contreras Work Phone: 4(111)424-660121 [place] [address] 08-07-2023 13:43-0500 Diastolic blood pressure 73 mm[Hg] Dr. Ken Contreras Work Phone: 2(649)755-614021 [place] [address] 08-07-2023 13:43-0500 Heart rate 60 /min Dr. Ken Contreras Work Phone: 2(757)103-360821 [place] [address] 08-07-2023 13:43-0500 Respiratory rate 18 /min Dr. Ken Contreras Work Phone: 9(007)797-899921 [place] [address] 08-07-2023 13:43-0500 SaO2% (BldA) [Mass fraction] 97 % Dr. Ken Contreras Work Phone: 1(238)822-922321 [place] [address] 08-07-2023 13:43-0500 Systolic blood pressure 114 mm[Hg] Dr. Ken Contreras Work Phone: 9(632)560-712621 [place] [address] 05-27-2023 17:19-0400 Body height 157.[address] Ken Contreras Work Phone: 2(918)832-679421 [place] [address] 05-27-2023 17:19-0400 Body mass index (BMI) [Ratio] 32 kg/m2 Dr. Ken Contreras Work Phone: [facility] 05-27-2023 17:19-0400 Body temperature 97.5 [degF] Dr. Ken Contreras Work Phone: [facility] 05-27-2023 17:19-0400 Body weight 79.[address] Ken Contreras Work Phone: [facility] 05-27-2023 17:19-0400 Diastolic blood pressure 65 mm[Hg] Dr. Ken Contreras Work Phone: [facility] 05-27-2023 17:19-0400 Heart rate 59 /min Dr. Ken Contreras Work Phone: [facility] 05-27-2023 17:19-0400 Respiratory rate 16 /min Dr. Ken Contreras Work Phone: [facility] 05-27-2023 17:19-0400 SaO2% (BldA) [Mass fraction] 97 % Dr. Ken Contreras Work Phone: [facility] 05-27-2023 17:19-0400 Systolic blood pressure 138 mm[Hg] Dr. Ken Contreras Work Phone: [facility] 05-21-2023 13:48-0400 Body temperature 97.81 [degF] Dia Older IT DIRECTOR.TOY CONSULTANT Work Phone: [facility] 05-21-2023 13:48-0400 Body weight 79.88 kg Dia Older IT DIRECTOR.TOY CONSULTANT Work Phone: [facility] 05-21-2023 13:48-0400 Diastolic blood pressure 68 mm[Hg] Dia Older IT DIRECTOR.TOY CONSULTANT Work Phone: [facility] 05-21-2023 13:48-0400 Heart rate 60 /min Dia Older IT DIRECTOR.TOY CONSULTANT Work Phone: [facility] 05-21-2023 13:48-0400 Respiratory rate 18 /min Dia Older IT DIRECTOR.TOY CONSULTANT Work Phone: [facility] 05-21-2023 13:48-0400 SaO2% (BldA) [Mass fraction] 99 % Dia Older IT DIRECTOR.TOY CONSULTANT Work Phone: [facility] 05-21-2023 13:48-0400 Systolic blood pressure 116 mm[Hg] Dia Older IT DIRECTOR.TOY CONSULTANT Work Phone: [facility] 05-18-2023 17:33-0400 Diastolic blood pressure 76 mm[Hg] Dr. Ken Contreras Work Phone: [facility] 05-18-2023 17:33-0400 Heart rate 98 /min Dr. Ken Contreras Work Phone: [facility] 05-18-2023 17:33-0400 Respiratory rate 14 /min Dr. Ken Contreras Work Phone: [facility] 05-18-2023 17:33-0400 SaO2% (BldA) [Mass fraction] 98 % Dr. Ken Contreras Work Phone: [facility] 05-18-2023 17:33-0400 Systolic blood pressure 141 mm[Hg] Dr. Ken Contreras Work Phone: [facility] 05-18-2023 14:17-0400 Body height 157.[address] Ken Contreras Work Phone: [facility] 05-18-2023 14:17-0400 Body mass index (BMI) [Ratio] 34.7 kg/m2 Dr. Ken Contreras Work Phone: [facility] 05-18-2023 14:17-0400 Body temperature 96.3 [degF] Dr. Ken Contreras Work Phone: [facility] 05-18-2023 14:17-0400 Body weight 86.[address] Ken Contreras Work Phone: [facility] 05-05-2023 13:44-0400 Body height 157.[address] Ken Contreras Work Phone: 2(225)811-011221 [place] [address] 05-05-2023 13:44-0400 Body mass index (BMI) [Ratio] 31.8 kg/m2 Dr. Ken Contreras Work Phone: 2(964)909-429359 [place] [address] 05-05-2023 13:44-0400 Body weight 79.[address] Ken Contreras Work Phone: 7(049)838-746159 [place] [address] 05-05-2023 13:44-0400 Diastolic blood pressure 74 mm[Hg] Dr. eKn Contreras Work Phone: 5(753)672-938159 [place] [address] 05-05-2023 13:44-0400 Heart rate 60 /min Dr. Ken Contreras Work Phone: 9(710)315-969859 [place] [address] 05-05-2023 13:44-0400 Respiratory rate 18 /min Dr. Ken Contreras Work Phone: 8(893)390-613259 [place] [address] 05-05-2023 13:44-0400 SaO2% (BldA) [Mass fraction] 95 % Dr. Ken Contreras Work Phone: 8(455)259-108659 [place] [address] 05-05-2023 13:44-0400 Systolic blood pressure 115 mm[Hg] Dr. Ken Contreras Work Phone: 7(776)324-515259 [place] [address] 02-25-2023 06:48-0400 Body mass index (BMI) [Ratio] 31.8 kg/m2 Dr. Ken Contreras Work Phone: 1(731)667-237921 [place] [address] 02-25-2023 06:48-0400 Body temperature 97.8 [degF] Dr. Ken Contreras Work Phone: 1(413)577-912859 [place] [address] 02-25-2023 06:48-0400 Body weight 78.[address] Ken Contreras Work Phone: 3(144)331-198559 [place] [address] 02-25-2023 06:48-0400 Diastolic blood pressure 67 mm[Hg] Dr. Ken Contreras Work Phone: 7(510)191-062559 [place] [address] 02-25-2023 06:48-0400 Heart rate 60 /min Dr. Ken Contreras Work Phone: 5(190)108-909421 [place] [address] 02-25-2023 06:48-0400 Respiratory rate 18 /min Dr. Ken Contreras Work Phone: 7(178)226-498121 [place] [address] 02-25-2023 06:48-0400 SaO2% (BldA) [Mass fraction] 95 % Dr. Ken Contreras Work Phone: 9(065)930-156421 [place] [address] 02-25-2023 06:48-0400 Systolic blood pressure 103 mm[Hg] Dr. Ken Contreras Work Phone: 1(927)257-442659 [place] [address] 01-09-2023 22:26-0400 Diastolic blood pressure 74 mm[Hg] Dr. Ken Contreras Work Phone: 3(789)671-059859 [place] [address] 01-09-2023 22:26-0400 Heart rate 64 /min Dr. Ken Contreras Work Phone: 6(899)068-924821 [place] [address] 01-09-2023 22:26-0400 Respiratory rate 15 /min Dr. Ken Contreras Work Phone: 6(917)223-380521 [place] [address] 01-09-2023 22:26-0400 SaO2% (BldA) [Mass fraction] 97 % Dr. Ken Contreras Work Phone: 4(460)952-185321 [place] [address] 01-09-2023 22:26-0400 Systolic blood pressure 136 mm[Hg] Dr. Ken Contreras Work Phone: 5(368)129-682821 [place] [address] 01-09-2023 18:23-0400 Body height 157.[address] Ken oCntreras Work Phone: 5(442)843-611821 [place] [address] 01-09-2023 18:23-0400 Body mass index (BMI) [Ratio] 32.5 kg/m2 Dr. Ken Contreras Work Phone: 7(068)261-276521 [place] [address] 01-09-2023 18:23-0400 Body temperature 96.7 [degF] Dr. Ken Contreras Work Phone: 8(634)675-228521 [place] [address] 01-09-2023 18:23-0400 Body weight 80.[address] Ken Contreras Work Phone: [facility] 01-09-2023 17:38-0400 Body temperature 97.9 [degF] Jorge Jordan APRN.TOY CONSULTANT Work Phone: [facility] 01-09-2023 17:38-0400 Body weight 80.92 kg Jorge Jordan APRN.TOY CONSULTANT Work Phone: [facility] 01-09-2023 17:38-0400 Diastolic blood pressure 84 mm[Hg] Jorge Jordan APRN.TOY CONSULTANT Work Phone: [facility] 01-09-2023 17:38-0400 Heart rate 60 /min Jorge Jordan APRN.TOY CONSULTANT Work Phone: [facility] 01-09-2023 17:38-0400 Respiratory rate 18 /min Jorge Jordan APRN.TOY CONSULTANT Work Phone: [facility] 01-09-2023 17:38-0400 SaO2% (BldA) [Mass fraction] 98 % Jorge Jordan APRN.TOY CONSULTANT Work Phone: [facility] 01-09-2023 17:38-0400 Systolic blood pressure 126 mm[Hg] Jorge Jordan APRN.TOY CONSULTANT Work Phone: [facility] 08-19-2022 14:20-0500 Body height 158.[address] Ken Contreras Work Phone: [facility] Work Phone: 08-19-2022 14:20-0500 Body mass index (BMI) [Ratio] 32.2 kg/m2 Dr. Ken Contreras Work Phone: [facility] Work Phone: 08-19-2022 14:20-0500 Body temperature 97.3 [degF] Dr. Ken Contreras Work Phone: [facility] Work Phone: 08-19-2022 14:20-0500 Body weight 81.[address] Ken Contreras Work Phone: [facility] Work Phone: 08-19-2022 14:20-0500 Diastolic blood pressure 81 mm[Hg] Dr. Ken Contreras Work Phone: [facility] Work Phone: 08-19-2022 14:20-0500 Heart rate 63 /min Dr. Ken Contreras Work Phone: [facility] Work Phone: 08-19-2022 14:20-0500 Respiratory rate 18 /min Dr. Ken Contreras Work Phone: [facility] Work Phone: 08-19-2022 14:20-0500 SaO2% (BldA) [Mass fraction] 95 % Dr. Ken Contreras Work Phone: [facility] Work Phone: 08-19-2022 14:20-0500 Systolic blood pressure 130 mm[Hg] Dr. Ken Contreras Work Phone: [facility] Work Phone: 08-01-2022 14:21-0500 Body height 158.8 cm Ken Contreras MD Work Phone: [facility] 08-01-2022 14:21-0500 Body weight 80.29 kg Ken Contreras MD Work Phone: [facility] 08-01-2022 14:21-0500 Diastolic blood pressure 75 mm[Hg] Ken Contreras MD Work Phone: [facility] 08-01-2022 14:21-0500 Heart rate 66 /min Ken Contreras MD Work Phone: [facility] 08-01-2022 14:21-0500 Respiratory rate 12 /min Ken Contreras MD Work Phone: [facility] 08-01-2022 14:21-0500 Systolic blood pressure 115 mm[Hg] Ken Contreras MD Work Phone: [facility] 07-15-2022 16:06-0500 Diastolic blood pressure 97 mm[Hg] Geoff Carlos MD Work Phone: [facility] 07-15-2022 16:06-0500 Heart rate 62 /min Geoff Carlos MD Work Phone: [facility] 07-15-2022 16:06-0500 Systolic blood pressure 166 mm[Hg] Geoff Carlos MD Work Phone: [facility] 07-05-2022 11:04-0400 Body weight 78.93 kg Misael Cooley MD Work Phone: [facility] 07-05-2022 11:04-0400 Diastolic blood pressure 82 mm[Hg] Misael Cooley MD Work Phone: [facility] 07-05-2022 11:04-0400 Heart rate 67 /min Misael Cooley MD Work Phone: [facility] 07-05-2022 11:04-0400 Respiratory rate 16 /min Misael Cooley MD Work Phone: [facility] 07-05-2022 11:04-0400 SaO2% (BldA) [Mass fraction] 96 % Misael Cooley MD Work Phone: [facility] 07-05-2022 11:04-0400 Systolic blood pressure 130 mm[Hg] Misael Cooley MD Work Phone: [facility] 06-19-2022 12:46-0400 Body temperature 98.91 [degF] Jennifer Older IT DIRECTOR.TOY CONSULTANT Work Phone: [facility] 06-19-2022 12:46-0400 Body weight 79.83 kg Jennifer Older IT DIRECTOR.TOY CONSULTANT Work Phone: [facility] 06-19-2022 12:46-0400 Diastolic blood pressure 72 mm[Hg] Jennifer Older IT DIRECTOR.TOY CONSULTANT Work Phone: [facility] 06-19-2022 12:46-0400 Heart rate 60 /min Jennifer Older IT DIRECTOR.TOY CONSULTANT Work Phone: [facility] 06-19-2022 12:46-0400 Respiratory rate 16 /min Jennifer Older IT DIRECTOR.TOY CONSULTANT Work Phone: [facility] 06-19-2022 12:46-0400 Systolic blood pressure 120 mm[Hg] Jennifer Older IT DIRECTOR.TOY CONSULTANT Work Phone: [facility] 01-23-2022 13:50-0400 Body temperature 98.29 [degF] Ken Contreras MD Work Phone: [facility] 01-23-2022 13:50-0400 Body weight 79.38 kg Ken Contreras MD Work Phone: [facility] 01-23-2022 13:50-0400 Diastolic blood pressure 70 mm[Hg] Ken Contreras MD Work Phone: [facility] 01-23-2022 13:50-0400 Heart rate 60 /min Ken Contreras MD Work Phone: [facility] 01-23-2022 13:50-0400 Respiratory rate 16 /min Ken Contreras MD Work Phone: [facility] 01-23-2022 13:50-0400 SaO2% (BldA) [Mass fraction] 92 % Ken Contreras MD Work Phone: [facility] 01-23-2022 13:50-0400 Systolic blood pressure 118 mm[Hg] Ken Contreras MD Work Phone: [facility] 01-07-2022 11:06-0400 Body height 159 cm Ria Matamoros DO Work Phone: [facility] 01-07-2022 11:06-0400 Body weight 79.38 kg Ria Matamoros DO Work Phone: [facility] 01-07-2022 11:06-0400 Diastolic blood pressure 77 mm[Hg] Ria Matamoros DO Work Phone: [facility] 01-07-2022 11:06-0400 Heart rate 60 /min Ria Matamoros DO Work Phone: [facility] 01-07-2022 11:06-0400 SaO2% (BldA) [Mass fraction] 100 % Ria Matamoros DO Work Phone: [facility] 01-07-2022 11:06-0400 Systolic blood pressure 132 mm[Hg] Ria Matamoros DO Work Phone: [facility] 10-01-2021 13:38-0500 Body height 157.[address] Ken Contreras Work Phone: [facility] Work Phone: 10-01-2021 13:38-0500 Body mass index (BMI) [Ratio] 32.3 kg/m2 Dr. Ken Contreras Work Phone: [facility] Work Phone: 10-01-2021 13:38-0500 Body weight 80.[address] Ken Contreras Work Phone: [facility] Work Phone: 10-01-2021 13:38-0500 Diastolic blood pressure 80 mm[Hg] Dr. Ken Contreras Work Phone: [facility] Work Phone: 10-01-2021 13:38-0500 Heart rate 60 /min Dr. Ken Contreras Work Phone: [facility] Work Phone: 10-01-2021 13:38-0500 Respiratory rate 18 /min Dr. Ken Contreras Work Phone: [facility] Work Phone: 10-01-2021 13:38-0500 SaO2% (BldA) [Mass fraction] 95 % Dr. Ken Contreras Work Phone: [facility] Work Phone: 10-01-2021 13:38-0500 Systolic blood pressure 130 mm[Hg] Dr. Ken Contreras Work Phone: [facility] Work Phone: 07-27-2017 14:41-0500 BMI (Body Mass Index) 33.48 kg/m2 [facility] Work Phone: 07-27-2017 14:41-0500 Body Temperature 97.7 [degF] [facility] Work Phone: 07-27-2017 14:41-0500 BP Diastolic 80 mm[Hg] [facility] Work Phone: 07-27-2017 14:41-0500 BP Systolic 164 mm[Hg] [facility] Work Phone: 07-27-2017 14:41-0500 Height 160.02 cm [facility] Work Phone: 07-27-2017 14:41-0500 Pulse (Heart Rate) 62 /min [facility] Work Phone: 07-27-2017 14:41-0500 Respiratory Rate 18 /min [facility] Work Phone: 07-27-2017 14:41-0500 Weight 85.73 kg [facility] Work Phone: 07-24-2017 07:36-0500 BMI (Body Mass Index) 33.65 kg/m2 Taylor Mena MULTILITH OPERATOR [facility] Work Phone: 07-24-2017 07:36-0500 Body Temperature 97.6 [degF] Taylor Mena LPN [facility] Work Phone: 07-24-2017 07:36-0500 BP Diastolic 84 mm[Hg] Taylor Yensho MULTILITH OPERATOR [facility] Phone: 07-24-2017 07:36-0500 BP Systolic 141 mm[Hg] Taylor Yensho MULTILITH OPERATOR [facility] Work Phone: 07-24-2017 07:36-0500 Height 160.02 cm Taylor Yensho MULTILITH OPERATOR [facility] Work Phone: 07-24-2017 07:36-0500 Pulse (Heart Rate) 61 /min Taylor Yensho MULTILITH OPERATOR [facility] Work Phone: 07-24-2017 07:36-0500 Respiratory Rate 18 /min Taylor Yensho MULTILITH OPERATOR [facility] Work Phone: 07-24-2017 07:36-0500 Weight 86.18 kg Taylor Yensho MULTILITH OPERATOR [facility] Phone: 03-05-2017 08:46-0400 Body Temperature 97.81 [degF] Taylor Yensho MULTILITH OPERATOR [facility] Work Phone: 03-05-2017 08:46-0400 Height 160.02 cm Taylor Yensho MULTILITH OPERATOR [facility] Work Phone: 03-05-2017 08:46-0400 Weight 83.91 kg Taylor Yensho MULTILITH OPERATOR [facility] Phone: 11-27-2016 12:52-0400 Inhaled O2 2 Taylor Yensho MULTILITH OPERATOR [facility] Phone: Encounters Encounter Date Encounter Type Care Provider Facility Start: 04-11-2025 End: 04-11-2025 ambulatory DIA LOPEZ Facility:[facility] Start: 04-07-2025 End: 04-07-2025 Patient encounter procedure Ashely Miller MD Work Phone: [facility]monary [facility] Comment on above: Bronchiectasis with acute exacerbation (HCC) (Primary Dx); Nocturnal hypoxemia; Mild intermittent asthma without complication (HCC) Start: 04-07-2025 End: 04-07-2025 ambulatory ASHELY MILLER Facility:[facility] Start: 04-06-2025 End: 04-06-2025 Refill Dia Lopez APRN.TOY CONSULTANT Work Phone: [facility] [place] Comment on above: Refill Request Start: 03-31-2025 End: 03-31-2025 Patient encounter procedure Latonya STEVE -[facility] Work Phone: Start: 03-31-2025 End: 03-31-[address] Ken Contreras MD Work Phone: -[facility] Start: 03-28-2025 End: 03-28-2025 Subsequent hospital visit by physician Xr [facility] [place] Work Phone: Radiology Comment on above: Acute cough [R05.1] Start: 03-28-2025 End: 03-28-2025 Patient encounter procedure Jorge Jordan APRN.TOY CONSULTANT Work Phone: [facility] [place] Comment on above: Acute cough (Primary Dx) Start: 03-28-2025 End: 03-28-2025 ambulatory KEN CONTRERAS Facility:[facility] Start: 03-28-2025 End: 03-29-2025 Follow-up encounter Jorge Jordan APRN.TOY CONSULTANT Work Phone: [facility] [place] Comment on above: Results Start: 03-28-2025 End: 03-28-2025 Telephone encounter Ken Contreras MD Work Phone: [facility] [place] Comment on above: Patient Update Start: 03-24-2025 End: 03-24-[address] Ken Contreras MD Work Phone: -[facility] Start: 03-24-2025 End: 03-24-[address] Zane Mcpherson MD -[facility] Work Phone: Start: 03-23-2025 End: 03-23-2025 Patient encounter procedure Dian Rodas MD Work Phone: Allergy Comment on above: [id number] adv erse effect of medication, initial encounter (Primary Dx); Allergic rhinitis due to cats; Allergic rhinitis due to dust mite; Moderate persistent asthma without complication (HCC); Toxic effect from eating shellfish, accidental or unintentional, initial encounter Start: 03-23-2025 End: 03-23-2025 ambulatory DIAN RODAS Facility:[facility] Start: 03-17-2025 End: 03-17-2025 Telephone encounter Ken Contreras MD Work Phone: [facility] [place] Comment on above: Constipation Start: 03-08-2025 ambulatory Ken Contreras Facili ty:[facility] Start: 03-08-2025 Non-patient / Non-visit Dr. Alice TONEY -[facility] Start: 03-08-2025 End: 03-08-[address] Ken Contreras MD Work Phone: -Cardiovascular Services Start: 03-08-2025 End: 03-08-[address] Ken Contreras MD -Cardiovascular Services Work Phone: Start: 03-08-2025 End: 03-08-2025 ambulatory Ken Contreras Facility:[facility] Start: 03-07-2025 Non-patient / Non-visit Dr. Christi cook MD -[facility] Work Phone: Start: 03-04-2025 End: 03-07-2025 Refill Dia Lopez APRN.CNP Work Phone: [facility] [place] Comment on above: Refill Request Start: 03-02-2025 End: 03-02-2025 Office outpatient visit 25 minutes Ken Contreras MD Work Phone: [facility] [place] Comment on above: Depression, recurren t (Primary Dx); Hip pain, left; MARTINES (dyspnea on exertion); Contusion of left side of back, subsequent encounter Start: 03-02-2025 End: 03-02-2025 ambulatory KEN CONTRERAS Facility:[facility] Start: 02-15-2025 End: 02-15-2025 Emergency department patient visit Dr. Ken Contreras MD Work Phone: -Emergency Department Work Phone: Start: 02-15-2025 End: 02-15-2025 ambulatory Ken Contreras MD Work Phone: [facility] [place] Comment on above: Head Injury Start: 02-06-2025 End: 02-06-2025 Telephone encounter Ken Contreras MD Work Phone: [facility] [place] Comment on above: [facility] Scheduling dept requesting records Start: 02-03-2025 End: 02-03-2025 ambulatory Pulm Lab [facility] Work Phone: P[facility] LAB [facility] Comment on above: Spirometry Start: 02-03-2025 End: 02-03-2025 Patient encounter procedure Pulm Lab [facility] Work Phone: PULM LAB [facility] Start: 02-03-2025 End: 02-03-2025 Telephone encounter Ken Contreras MD Work Phone: [facility] [place] Comment on above: Request for records Patient Update Start: 02-02-2025 End: 02-02-2025 Office outpatient visit 25 minutes Ken Contreras MD Work Phone: [facility] [place] Comment on above: Depression, recurren t (Primary Dx); Hip pain, left; Dyspnea on exertion Start: 02-02-2025 End: 02-02-2025 ambulatory KEN CONTRERAS Facility:[facility] Start: 01-26-2025 End: 01-26-2025 ambulatory KEN CONTRERAS Facility:[facility] Start: 01-25-2025 End: 01-25-2025 ambulatory CAMI MARS Facility:[facility] Start: 01-11-2025 End: 01-11-2025 Patient encounter procedure Ailyn Bonner APRN.TOY CONSULTANT Work Phone: PHYSICAL MEDICINE & REHAB Comment on above: Personal history of traumatic brain injury (Primary Dx); Sleep apnea, unspecified type Start: 01-11-2025 End: 01-11-2025 ambulatory AILYN BONNER Facility:[facility] Start: 01-06-2025 End: 01-06-2025 ambulatory Najma John RN Machine Shorthand Reporter Management Comment on above: Bi-Weekly Outreach ( Recurring) for Chronic Disease Management, Bi-Weekly Outreach (Recurring) for Chronic Disease Management Start: 01-05-2025 End: 01-05-2025 ambulatory KEN CONTRERAS Facility: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 Zane Mcpherson MD -[facility] Work Phone: Start: 12-22-2024 End: 12-22-2024 ambulatory Najma John RN Machine Shorthand Reporter Management Comment on above: Bi-Weekly Outreach ( Recurring) for Chronic Disease Management Start: 12-19-2024 End: 12-19-2024 Telephone encounter Ken Contreras MD Work Phone: [facility] [place] Comment on above: Fax Request Start: 12-16-2024 End: 12-16-2024 ambulatory RUBEN FERRARA Facility:[facility] Start: 12-16-2024 End: 12-16-2024 Patient encounter procedure Ruben Ferrara PA-C Work Phone: Orthopaedics Comment on above: Chronic bilateral lo w back pain without sciatica (Primary Dx); Hip pain, left; Pain of erector spinae muscle Start: 12-15-2024 End: 12-16-2024 Follow-up encounter Cami Mars MD Work Phone: Geriatrics Start: 12-14-2024 End: 12-14-2024 ambulatory CAMI MARS Facility:[facility] Start: 12-14-2024 End: 12-14-2024 ambulatory CAMI JERAD Facility:[facility] Start: 12-14-2024 End: 12-14-2024 Office consultation new/estab [...] 12-07-2024 End: 12-07-2024 ambulatory Najma John RN Machine Shorthand Reporter Management Comment on above: Bi-Weekly Outreach ( Recurring) for Chronic Disease Management Start: 12-06-2024 End: 12-07-2024 Refill Dia Lopez APRN.CNP Work Phone: [facility] [place] Comment on above: Refill Request Start: 12-01-2024 End: 12-02-2024 Telephone encounter Ken Contreras MD Work Phone: [address] [place] [address] Comment on above: Patient Question Start: 11-29-2024 End: 11-29-2024 Telephone encounter Ken Contreras MD Work Phone: [facility] [place] Comment on above: Consult (Orthopedic ) Start: 11-24-2024 End: 11-24-2024 ambulatory KEN CONTRERAS Facility:[facility] Start: 11-24-2024 End: 11-24-2024 Subsequent hospital visit by physician Marii [facility] [place] Work Phone: Radiology Comment on above: Hip pain, left [M25. 552] Start: 11-24-2024 End: 11-24-2024 ambulatory KEN CONTRERAS Facility:[facility] Start: 11-24-2024 End: 11-24-2024 Office outpatient visit 25 minutes Ken Contreras MD Work Phone: [facility] [place] Comment on above: Hip pain, left (Prim corinna Dx); Physical debility; Oxygen desaturation; Bronchiectasis without complication (HCC) Start: 11-23-2024 End: 11-23-2024 ambulatory Najma John RN Machine Shorthand Reporter Management Comment on above: Started Bi-Weekly Ou tremercy (Recurring) for Chronic Disease Management Start: 11-11-2024 End: 11-11-[address] Ken Contreras MD Work Phone: [facility] Work Phone: Start: 11-11-2024 End: 11-11-2024 Patient encounter procedure Latonya Vargas PA -Laboratory Work Phone: Start: 11-11-2024 End: 11-11-2024 ambulatory Ken Contreras Facility:[facility] Start: 11-09-2024 End: 12-12-2024 ambulatory Najma John profiling machine operatorMachine Shorthand Reporter Management Comment on above: [facility] Start: 10-31-2024 End: 10-31-2024 Orders Only Ashely Miller MD Work Phone: Pulmonary Medicine Comment on above: Bronchiectasis witho ut complication (HCC) (Primary Dx) Overnight test Start: 10-30-2024 End: 11-02-2024 Refill Ken Contreras MD Work Phone: [facility] [place] Comment on above: Refill Request Start: 10-20-2024 End: 10-20-2024 ambulatory ASHELY MILLER Facility:[facility] Start: 10-20-2024 End: 10-20-2024 Patient encounter procedure Ashely Miller MD Work Phone: Pulmonary Medicine Comment on above: Nocturnal hypoxemia (Primary Dx); Bronchiectasis without complication (HCC); Pulmonary hypertension (HCC); Mild intermittent asthma without complication Start: 10-12-2024 End: 10-12-[address] Jann Mello MD -[facility] Work Phone: Start: 10-11-2024 End: 10-12-2024 ambulatory Jann Mello Facility:[facility] Start: 10-11-2024 End: 10-11-2024 Patient encounter procedure Dia Lopez APRN.TOY CONSULTANT Work Phone: [facility] [place] Comment on above: Nocturnal hypoxia (P rimary Dx); Asthmatic bronchitis , chronic (HCC); Depression, recurrent (HCC); Stage 3 chronic kidney disease, unspecified whether stage 3a or 3b CKD (HCC); Bronchiectasis without complication (HCC); Essential hypertension Start: 09-28-2024 End: 10-05-2024 Telephone encounter Ken Contreras MD Work Phone: [facility] [place] Comment on above: Patient Update Start: 09-23-2024 End: 09-23-2024 ambulatory Zane Mcpherson Facility:[facility] Start: 09-23-2024 End: 09-23-[address] Zane Mcpherson MD -[facility] Work Phone: Start: 09-05-2024 End: 09-05-2024 Emergency department patient visit Dr. Patrice Brady DO -Emergency Department Work Phone: Start: 09-04-2024 End: 09-05-2024 Refill Ken Contreras MD Work Phone: [facility] [place] Comment on above: Refill Request Start: 08-26-[address] Aryan Contreras MD -[facility] Work Phone: Start: 08-26-2024 ambulatory Ken Contreras [facility] ty:[facility] Start: 08-11-2024 End: 08-12-2024 Telephone encounter Ken Contreras MD Work Phone: [facility] [place] Comment on above: Question Start: 08-08-2024 End: 08-08-2024 Emergency department patient visit Dr. Shad Hunter MD -Emergency Department Work Phone: Start: 08-08-2024 End: 08-09-2024 Telephone encounter Ken Contreras MD Work Phone: [facility] [place] Comment on above: Fall Start: 07-08-2024 End: 07-08-2024 Patient encounter procedure Jyotsna Donohue IT DIRECTOR.TOY CONSULTANT Work Phone: Neurology Comment on above: Excessive daytime sl eepiness (Primary Dx) Start: 07-08-2024 End: 07-08-2024 ambulatory JYOTSNA DONOHUE Facility:[facility] Start: 07-06-2024 End: 07-06-2024 ambulatory AILYN Valdez EDMUNDOARY Facility:[facility] Start: 07-06-2024 End: 07-06-2024 Patient encounter procedure Ailyn José Miguel Kailey IT DIRECTOR.TOY CONSULTANT Work Phone: PHYSICAL MEDICINE & REHAB Comment on above: Fatigue, unspecified type (Primary Dx); Personal history of traumatic brain injury; Impaired functional mobility, balance, gait, and endurance Start: 07-01-2024 End: 07-01-2024 ambulatory [facility] Facility:[facility] Start: 07-01-2024 End: 07-01-2024 [facility] Facility:[facility] Start: 06-24-2024 End: 07-11-2024 Telephone encounter Kaya Cartwright MD Work Phone: Neurology Comment on above: Results Start: 06-24-2024 End: 06-24-2024 ambulatory [facility] Facility:[facility] Start: 06-21-2024 End: 06-21-2024 ambulatory Kaya Cartwright Facility:[facility] Start: 06-06-2024 End: 06-06-2024 Telephone encounter Kaya Cartwright MD Work Phone: Sleep Comment on above: faxed orders to [facility]- polysomnogram Start: 06-05-2024 End: 06-06-2024 Refill Dia Lopez IT DIRECTOR.TOY CONSULTANT Work Phone: [facility] [place] Comment on above: Refill Request Start: 06-01-2024 End: 06-01-2024 Telephone encounter Kaya Cartwright MD Work Phone: Neurology Comment on above: Patient Update Start: 05-27-2024 End: 05-27-2024 Subsequent hospital visit by physician Marii [facility] [place] Work Phone: Radiology Comment on above: Oxygen desaturation [R09.02] Start: 05-27-2024 End: 05-27-2024 ambulatory KEN CONTRERAS Facility: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 Start: 05-16-2024 End: 05-16-2024 Patient encounter procedure Rhoda Alcazar MD Work Phone: Otolaryngology Comment on above: Sore throat (Primary Dx); History of oral lesions Start: 05-13-2024 End: 05-13-2024 Telephone encounter Dia Lopez APRN.TOY CONSULTANT Work Phone: [facility] [place] Comment on above: Referral Request Start: 05-13-2024 End: 05-13-2024 ambulatory DIA LOPEZ Facility: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) Start: 04-21-2024 End: 04-21-2024 ambulatory MICHELLE VAZQUEZ Facility:[facility] Start: 04-21-2024 End: 04-21-2024 Patient encounter procedure Michelle Vazquez KALEE.TOY CONSULTANT Work Phone: [facility] Comment on above: SAH (subarachnoid he morrhage) (HCC) (Primary Dx) Start: 04-21-2024 End: 04-21-2024 Telemedicine consultation with patient Michelle Vazquez APRN.TOY CONSULTANT Work Phone: [facility] Start: 04-18-2024 End: 04-18-2024 Patient encounter procedure Kaya Cartwright MD Work Phone: Neurology Comment on above: Hypersomnia (Primary Dx); Delayed sleep phase syndrome; Insomnia, unspecified type; History of depression; History of anxiety; Snoring; Nocturia; Class 1 obesity with body mass index (BMI) of 31.0 to 31.9 in adult, unspecified obesity type, unspecified whether serious comorbidity present Start: 04-18-2024 End: 04-18-2024 ambulatory KAYA CARTWRIGHT JR Facility:[facility] Start: 04-02-2024 Refill Dia calderon APRN.CNP Work Phone: [facility] [place] Comment on above: Refill Request Start: 03-30-2024 End: 03-30-2024 Patient encounter procedure Dia Lopez APRN.CNP Work Phone: [facility] [place] Comment on above: Essential hypertensi on (Primary Dx); Fall from slip, trip, or stumble, initial encounter; Balance problem; Asthmatic bronchitis , chronic (HCC); Acquired hypothyroidism; Anxiety Start: 03-01-2024 Refill Dia calderon APRN.CNP Work Phone: [facility] [place] Comment on above: Refill Request Start: 02-12-2024 Telephone encounter Ken murillo MD Work Phone: [facility] [place] Comment on above: Results Start: 01-27-2024 End: 01-27-2024 ambulatory AILYN José Miguel EDMUNDOARY Facility:[facility] Start: 01-27-2024 End: 01-27-2024 ambulatory Jose Salesmary lou CCC-MANAGER STRATEGIC DEVELOPMENT Work Phone: [facility] Start: 01-27-2024 End: 01-27-2024 Patient encounter procedure Jose Parikhkev CCC-MANAGER STRATEGIC DEVELOPMENT Work Phone: [facility] Comment on above: Personal history of traumatic brain injury (Primary Dx) Start: 01-21-2024 End: 01-21-2024 Patient encounter procedure Michelle Vazquez IT DIRECTOR.TOY CONSULTANT Work Phone: [facility] Comment on above: SAH (subarachnoid he morrhage) (HCC) (Primary Dx) Start: 01-21-2024 End: 01-21-2024 ambulatory [facility] Facility:[facility] Start: 01-06-2024 End: 01-06-2024 Patient encounter procedure Ailyn Valdez Edmundoary IT DIRECTOR.TOY CONSULTANT Work Phone: PH[facility]ICAL MEDICINE [facility] REHAB Comment on above: Personal history of traumatic brain injury (Primary Dx); Sleep apnea, unspecified type; Fatigue, unspecified type; Aphagia; Impaired functional mobility, balance, gait, and endurance Start: 12-05-2023 Refill Dia calderon IT DIRECTOR.TOY CONSULTANT Work Phone: [facility] [place] Comment on above: Refill Request Start: 11-09-2023 End: 11-09-2023 Patient encounter procedure Tremaine Landon MD Work Phone: Neurology Comment on above: Traumatic brain inju ry, without loss of consciousness, subsequent encounter (Primary Dx); 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; Dizziness and giddiness; Forgetfulness; Imbalance; Post-traumatic headache, not intractable, unspecified chronicity pattern Start: 11-09-2023 End: 11-09-2023 ambulatory TREMAINE LANDON Facility[facility] Start: 11-04-2023 Refill Dia calderon IT DIRECTOR.TOY CONSULTANT Work Phone: [facility] [place] Comment on above: Refill Request Start: 11-03-2023 Refill Ken nolen MD Work Phone: [facility] [place] Comment on above: Refill Request Start: 10-29-2023 Telephone encounter Ken murillo MD Work Phone: [facility] [place] Comment on above: Patient Question Start: 10-22-2023 End: 10-22-2023 Patient encounter procedure Michelle Vazquez IT DIRECTOR.TOY CONSULTANT Work Phone: [facility] Comment on above: SAH (subarachnoid he morrhage) (HCC) (Primary Dx) Start: 10-22-2023 End: 10-22-2023 ambulatory MICHELLE VAZQUEZ Facility:[facility] Start: 10-19-2023 End: 10-19-2023 Subsequent hospital visit by physician [facility] (I-Stat) Work Phone: Cat Scan Comment on above: SAH (subarachnoid he morrhage) (HCC) [I60.9] Start: 10-14-2023 End: 10-14-2023 Patient encounter procedure Ken Contreras MD Work Phone: [facility] Medicine [place] Comment on above: Subarachnoid bleed ( HCC) (Primary Dx); DDD (degenerative disc disease), lumbar; Acquired hypothyroidism; Gastroesophageal reflux disease with esophagitis; Depressive disorder w/ seasonal affective disorder; Anxiety; Injury of head, subsequent encounter; Bronchiectasis without complication (HCC); Physical debility; Gastroesophageal reflux disease with esophagitis, unspecified whether hemorrhage Start: 10-02-2023 End: 10-05-2023 Evaluation and management of inpatient WEN GALICIA Facility:[facility] Start: 10-02-2023 End: 10-02-2023 Emergency department patient visit Dr. Ken Contreras Work Phone: [facility]-Emergency Department Work Phone: Start: 09-30-2023 End: 09-30-2023 Patient encounter procedure Dia Lopez IT DIRECTOR.TOY CONSULTANT Work Phone: [facility] [place] Comment on above: Medicare annual well ness visit, subsequent (Primary Dx); Depression, recurrent (HCC); Bronchiectasis without complication (HCC); Stage 3 chronic kidney disease, unspecified whether stage 3a or 3b CKD (HCC) Start: 08-07-2023 End: 08-07-[address] Ken Contreras Work Phone: [facility] Work Phone: Start: 08-04-2023 End: 08-04-2023 Subsequent hospital visit by physician Us [facility] Work Phone: Radiology Start: 07-08-2023 ambulatory Dia GraceTOY CONSULTANT Work Phone: [facility] [place] Comment on above: mammogram results Start: 07-08-2023 E-mail encounter fro m caregiver Dia Thaeyr APRN.TOY CONSULTANT Work Phone: [facility] Start: 07-07-2023 End: 07-07-2023 Subsequent hospital visit by physician Screen Mammo [facility] Mammogram Comment on above: Screening mammogram for breast cancer [Z12.31] Start: 06-23-2023 End: 06-23-[address] Ken Contreras Work Phone: [facility] Work Phone: Start: 05-27-2023 End: 05-27-2023 Emergency department patient visit Dr. Ken Contreras Work Phone: [facility]-Emergency Department Work Phone: Start: 05-21-2023 End: 05-21-2023 Patient encounter procedure Dia Thayer APRN.TOY CONSULTANT Work Phone: [facility] [place] Comment on above: Fall on same level f rom slipping, tripping or stumbling, subsequent encounter (Primary Dx); Abrasion, multiple sites; Injury of head, subsequent encounter; Injury of right knee, subsequent encounter; Need for vaccine for DT (diphtheria-tetanus); Encounter for immunization; Screening mammogram for breast cancer Start: 05-18-2023 End: 05-18-2023 Emergency department patient visit Dr. Ken Contreras Work Phone: [facility]-Emergency Department Work Phone: Start: 05-05-2023 End: 05-05-[address] Ken Contreras Work Phone: [facility] Work Phone: Start: 05-05-2023 End: 05-05-[address] Ken Contreras Work Phone: [facility] Work Phone: Start: 04-28-2023 Refill Ken nolen MD Work Phone: Internal Medicine [place] Comment on above: Refill Request Start: 03-10-2023 Refill Dia GraceTOY CONSULTANT Work Phone: Internal Medicine [place] Comment on above: Refill Request Start: 02-25-2023 End: 02-25-[address] Ken [facility] Work Phone: Start: 02-16-2023 Refill Ken nolen MD Work Phone: Internal [facility] [place] Comment on above: Refill Request Start: 02-07-2023 Refill Ken nolen MD Work Phone: Internal [facility] [place] Comment on above: Refill Request Start: 01-09-2023 End: 01-09-2023 Emergency department patient visit Dr. Ken Contreras Work Phone: [facility]-Emergency Department Start: 01-09-2023 End: 01-09-2023 Patient encounter procedure Jorge Jordan APRN.TOY CONSULTANT Work Phone: [facility] Comment on above: Acute constipation ( Primary Dx) Start: 12-30-2022 Refill Ken nolen MD Work Phone: Internal [facility] [place] Start: 12-24-2022 Patient Msg Ccf Provider Internal [facility] Comment on above: Refill request Start: 12-10-2022 Refill Ken nolen MD Work Phone: Internal [facility] Comment on above: Refill Request Start: 12-08-2022 Refill Dia Older IT DIRECTOR .TOY CONSULTANT Work Phone: Family [facility] Comment on above: Refill Request Start: 12-07-2022 Refill Dia Older IT DIRECTOR .TOY CONSULTANT Work Phone: Internal [facility] Comment on above: Refill Request Start: 11-16-2022 Refill Dia Older IT DIRECTOR .TOY CONSULTANT Work Phone: Family [facility] Comment on above: Refill Request Start: 11-14-2022 End: 11-14-[address] Ken Contreras Work Phone: [facility] Start: 10-30-2022 Refill Dia Older IT DIRECTOR .TOY CONSULTANT Work Phone: [facility] Comment on above: Refill Request Handicap Placard González ewal Request Start: 09-15-2022 Refill Ken nolen MD Work Phone: [facility] Comment on above: Refill Request; Refi ll Request Start: 08-28-2022 End: 08-28-[address] Ken Contreras Work Phone: [facility] Work Phone: Start: 08-28-2022 End: 08-28-[address] Ken Contreras Work Phone: [facility] Start: 08-20-2022 End: 08-20-[address] Ken Contreras Work Phone: [facility] Work Phone: Start: 08-20-2022 End: 08-20-[address] Ken Contreras Work Phone: [facility]-Ultrasound, [facility] Start: 08-19-2022 End: 08-19-[address] Ken Contreras Work Phone: [facility]Pulmonary Medicine [facility] Start: 08-08-2022 End: 08-08-[address] Ken Contreras Work Phone: [facility] [facility] Start: 08-01-2022 End: 08-01-2022 Patient encounter procedure Ken Contreras MD Work Phone: [facility] [place] Comment on above: Medicare annual well ness visit, subsequent (Primary Dx); Dysfunction of left eustachian tube; Depressive disorder w/ seasonal affective disorder; Acquired hypothyroidism; Anxiety; DDD (degenerative disc disease), lumbar; Mixed stress and urge urinary incontinence; Essential hypertension; Recurrent UTI Start: 07-18-2022 Refill Ken nolen MD Work Phone: Internal [facility] Comment on above: Refill Request Start: 07-15-2022 End: 07-15-2022 Patient encounter procedure Geoff Carlos MD Work Phone: Ophthalmology Comment on above: 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, mild stage (Primary Dx); Optic cupping of both eyes; Nonexudative age-related macular degeneration, bilateral, intermediate dry stage; Essential hypertension Start: 07-05-2022 End: 07-05-2022 Patient encounter procedure Misael Cooley MD Work Phone: [facility] Comment on above: Recurrent UTI Start: 07-03-2022 Telephone encounter Ken murillo MD Work Phone: Internal [facility] Comment on above: Insurance Authorizat ion Start: 06-30-2022 Telephone encounter Jennifer Thayer APRN.CNP Work Phone: Internal [facility] Comment on above: reoccurant UTI Start: 06-23-2022 Telephone encounter Jennifer Thayer APRN.CNP Work Phone: [facility] Comment on above: Results Start: 06-19-2022 End: 06-19-2022 Patient encounter procedure Jennifer Jeovany IT DIRECTOR.TOY CONSULTANT Work Phone: [facility] [place] Comment on above: Urinary tract infect ion without hematuria, site unspecified (Primary Dx); Dysuria Start: 06-18-2022 Refill Geoff leija MD Work Phone: Ophthalmology Comment on above: Refill Request Start: 05-31-2022 Refill Dia Jeovany IT DIRECTOR .TOY CONSULTANT Work Phone: [facility] [place] Comment on above: Refill Request Start: 05-28-2022 Telephone encounter Ken murillo MD Work Phone: [facility] [place] Comment on above: Medication Problem; Patient Update Start: 05-08-2022 Telephone encounter Ken murillo MD Work Phone: [facility] [place] Comment on above: Patient Question Start: 05-07-2022 Refill Dia Jeovany IT DIRECTOR .TOY CONSULTANT Work Phone: Internal [facility] [place] Comment on above: Refill Request Start: 04-14-2022 Refill Geoff leija MD Work Phone: Ophthalmology Comment on above: Refill Request Start: 04-11-2022 ambulatory Ken nolen MD Work Phone: [facility] [place] Comment on above: sinus pressure; ear ache [...] End: 01-23-2022 Subsequent hospital visit by physician [facility] [place] Work Phone: Radiology Comment on above: Pleurisy [R09.1] Start: 01-23-2022 End: 01-23-2022 Patient encounter procedure Ken Contreras MD Work Phone: [facility] [place] Comment on above: Pleurisy (Primary Dx ); Vitamin D deficiency; Bronchiectasis without complication (HCC); Essential hypertension; Acquired hypothyroidism; Elevated alkaline phosphatase measurement; Need for COVID-19 vaccine; Personal history of squamous cell carcinoma of skin Start: 01-17-2022 Non-patient / Non-visit Dr. Afia Contreras Work Phone: [facility] Start: 01-17-2022 End: 01-17-[address] eKn [facility]re[facility] Start: 01-10-2022 Telephone encounter Dia Thayer APRN.TOY CONSULTANT Work Phone: Internal [facility] Comment on above: Opened In Error Start: 01-07-2022 End: 01-07-2022 Patient encounter procedure Ria Matamoros DO Work Phone: Vascular Surgery Comment on above: Venous (peripheral) insufficiency (Primary Dx) Start: 12-18-2021 End: 12-18-[address] Ken [facility]re[facility] Start: 11-29-2021 Refill Diajona Thayer IT DIRECTOR LeslyTOY CONSULTANT Work Phone: [facility] Comment on above: Refill Request Start: 10-18-2021 End: 10-18-[address] Ken Contreras Work Phone: [facility] Start: 10-01-2021 End: 10-01-[address] Ken Contreras Work Phone: [facility] Start: 06-22-2012 End: 06-24-2017 Patient encounter procedure Ailyn Bonner APRN.TOY CONSULTANT Work Phone: [facility] Procedures Date Procedure Procedure Detail Performing Clinician Start: 03-28-2025 Radiologic exam chest 2 views Jorge Jordan APRN.TOY CONSULTANT Work Phone: Start: 03-08-2025 Cardiovascular stres s test using pharmacologic stress agent Dr. Ken Contreras MD Work Phone: Start: 02-15-2025 X-ray of lumbar spin e, two or three views Dr. Ken Contreras MD Work Phone: Start: 02-15-2025 CT cervical spine wi thout contrast Dr. Ken Contreras MD Work Phone: Start: 02-15-2025 CT of head without contrast Dr. Ken Contreras MD Work Phone: Start: 02-03-2025 Brncdilat rspse spmt ry pre&post-brncdilat admn Cami Mars MD Work Phone: Start: 10-12-2024 CT of head without contrast [...] Contreras MD Work Phone: Start: 05-26-2024 Echocardiography JERONIMO CARTWRIGHT JR Start: 10-19-2023 Ct head/brain w/o co ntrast material Dulce LYONSC Work Phone: Start: 10-02-2023 CT cervical spine wi thout contrast Dr. Ken Contreras Work Phone: Start: 10-02-2023 CT of head without contrast Dr. Ken Contreras Work Phone: Start: 08-04-2023 Digital breast tomos ynthesis unilateral Dia Older IT DIRECTOR.TOY CONSULTANT Work Phone: Start: 07-07-2023 Screening mammograph y bi 2-view breast inc cad Dia Older IT DIRECTOR.TOY CONSULTANT Work Phone: Start: 05-27-2023 Radiologic examinati on of knee Dr. Ken Contreras Work Phone: Start: 05-27-2023 Plain X-ray of tibia and fibula Dr. Ken Contreras Work Phone: Start: 05-21-2023 INFLUENZA VACCINE, P RSV FREE, AGE 65+ YR, HIGH DOSE, QUADRIVALENT (FLUZONE HIGH-DOSE) Dia Older IT DIRECTOR.BERTHA Work Phone: Start: 05-18-2023 Radiologic examinati on [...] et rgnt auto w/o microscopy Jennifer Thayer APRN.TOY CONSULTANT Work Phone: Start: 03-12-2022 End: 03-12-2022 Visual field xm uni/bi w/interp extended exam Geoff Carlos MD Work Phone: Start: 01-23-2022 Radiologic exam chest 2 views Ken Contreras MD Work Phone: Start: 01-23-2022 PFIZER-BIONTECH COVI D-19 VACCINE, AGE 12+ YR (SEVILLA TOP) Ken Contreras MD Work Phone: Start: 04-15-2017 End: 07-23-2017 DMB Irene Arenas BEATER LEAD Work Phone: Start: 04-15-2017 End: 07-23-2017 Follow Up Appt 3 months Irene rangel TOY CONSULTANT Work Phone: Start: 03-05-2017 End: 03-05-2017 Thyrotropin [Units/volume] in Serum or Plasma Jaswant M Bassem HARRIS Work Phone: Start: 11-27-2016 End: 12-16-2016 DMB Irene Arenas BEATER LEAD Work Phone: Start: 11-27-2016 End: 12-16-2016 Follow Up Appt 2 months Irene rangel TOY CONSULTANT Work Phone: Start: 11-27-2016 End: 12-16-2016 Pulmonary Function Test - complete Irene Garcia TOY CONSULTANT Work Phone: Start: 11-27-2016 End: 12-16-2016 Pulmonary stress test/simple Irene Garcia TOY CONSULTANT Work Phone: Plan of Treatment Date Care Activity Detail Author Start: 05-21-2033 Urine microalbumin profile DTaP,Tdap,Td Vaccine (3 - Td or Tdap) [facility] Start: 01-27-2028 Diabetes Screening Diabetes Screening [facility] Start: 05-27-2027 Diabetes Screening Diabetes Screening [facility] Start: 10-05-2026 Diabetes Screening Diabetes Screening [facility] Start: 07-02-2026 Diabetes Screening Diabetes Screening [facility] Start: 02-20-2026 DIABETES SCREEN DIABETES SCREEN [facility] Start: 02-20-2026 Diabetes Screening Diabetes Screening [facility] Start: 01-26-2026 DIABETES SCREEN DIABETES SCREEN [facility] Start: 01-05-2026 Medicare Annual Wellness Visit Medicare Annual Wellness Visit [facility] Start: 10-11-2025 RSV Vaccine (1 - 1-dose 75+ series) RSV Vaccine (1 - 1-dose 75+ series) [facility] Comment on above: Postponed from 02/22/2012 (Declined at t his time) Start: 07-25-2025 DIABETES SCREEN DIABETES SCREEN [facility] Start: 05-27-2025 Covid-19 Vaccine () Covid-19 Vaccine () [facility] Comment on above: Postponed from 05/08/2024 (Declined at t his time) Start: 05-27-2025 Covid-19 Vaccine () Covid-19 Vaccine () [facility] Comment on above: Postponed from 05/08/2024 (Declined at t his time) Start: 05-08-2025 Influenza vaccination Influenza Vaccine (#1) [facility] Start: 04-11-2025 End: 04-11-2025 Patient encounter procedure 04/11/2025 2:00 PM EDT Office Visit [facility] Medicine [place] [address] [id number] Dia Lopez, IT DIRECTOR.TOY CONSULTANT [address] [place] [address] medicare 6 months Internal [facility] [place] Comment on above: medicare 6 months Start: 04-07-2025 End: 04-07-2025 Patient encounter procedure 04/07/2025 10:30 AM EDT Office Visit Pulmonary Medicine [address] [place], [place] [id number] Ashely Miller MD [address] [place], [place] [id number] SOB f/u Pulmonary Medicine Comment on above: SOB f/u Start: 04-04-2025 End: 04-04-2025 Patient encounter procedure 04/04/2025 2:45 PM EDT Office Visit Pulmonary Medicine [address] [place] [address] Ashely Miller MD [address] [address] 4m f/up Pulmonary Medicine Comment on above: 4m f/up Start: 03-23-2025 End: 03-23-2025 Patient encounter procedure 03/23/2025 1:15 PM EDT Office Visit Allergy [address] [id number] Dian Rodas MD [address] [place], [place] [phone] I would like to know what reactions I might get. Allergy Comment on above: I would like to know what reactions I mi ght get. Start: 03-02-2025 End: 03-02-2025 Patient encounter procedure 03/02/2025 1:40 PM EDT Office Visit Internal Medicine [place] [address] [place] [address] Ken Contreras MD [address] [place] [address] 4 week follow-up Internal Medicine [place] Comment on above: 4 week follow-up Start: 02-14-2025 End: 02-14-2025 Patient encounter procedure 02/14/2025 1:15 PM EDT Office Visit Allergy [address] [id number] Dian Rodas MD [address] [place], [place] [phone] I would like to know what reactions I might get. Allergy Comment on above: I would like to know what reactions I mi ght get. Start: 02-03-2025 End: 02-03-2025 ambulatory [facility] Comment on above: MARTINES (dyspnea on exertion) [R06.09] Start: 02-02-2025 End: 02-02-2025 Patient encounter procedure 02/02/2025 3:20 PM EDT Office Visit Internal Medicine [place] [address] [place] [address] Ken Contreras MD [address] [place] [address] 4 week follow up [facility] [place] Comment on above: 4 week follow up Start: 01-26-2025 End: 04-27-2025 25-hydroxyvitamin D3 [Mass/volume] in Serum or Plasma VITAMIN D 25 HYDROXY Lab Routine Vitamin D deficiency Expected: 01/26/2025, Expires: 04/27/2025 [facility] Comment on above: Expected: 01/26/2025, Expires: Start: 01-26-2025 End: 04-27-2025 Basic metabolic 2000 panel - Serum or Plasma BASIC METABOLIC PANEL Lab Routine Stage 3 chronic kidney disease, unspecified whether stage 3a or 3b CKD (HCC) Expected: 01/26/2025, Expires: 04/27/2025 [facility] Work Phone: Comment on above: Expected: 01/26/2025, Expires: Start: 01-26-2025 End: 04-27-2025 Thyrotropin [Units/volume] in Serum or Plasma THYROID STIMULATING HORMONE Lab Routine Acquired hypothyroidism Expected: 01/26/2025, Expires: 04/27/2025 [facility] Comment on above: Expected: 01/26/2025, Expires: Start: 01-26-2025 End: 01-26-2025 ambulatory 01/26/2025 1:30 PM EDT Results Only [place] [facility] Laboratory [address] [place] [address] [place] [facility] Start: 01-25-2025 End: 01-25-2025 Patient encounter procedure 01/25/2025 4:00 PM EDT Office Visit Geriatrics [address] [facility] [place] [address] Cami Mars MD [address] [place] [address] 6 wk follow up Geriatrics Comment on above: 6 wk follow up Start: 01-16-2025 DIABETES SCREEN DIABETES SCREEN [facility] Start: 01-11-2025 End: 01-11-2025 Patient encounter procedure 01/11/2025 3:00 PM EDT Office Visit PHYSICAL MEDICINE & REHAB [address] [address] Ailyn Bonner, IT DIRECTOR.TOY CONSULTANT [address] [place] [address] Return in about 6 months (around 01/04/2025). [facility] Comment on above: Return in about 6 months (around 01/05/20). Start: 01-05-2025 End: 01-05-2025 Patient encounter procedure Internal Med [facility] [place] Comment on above: 6 week f/u-lower back pain/hip pain wellness exam Start: 12-16-2024 End: 12-16-2024 Patient encounter procedure 12/16/2024 11:00 AM EDT Office Visit Orthopaedics [address] [address] Ruben Ferrara PA-C [address] [address] Left hip pain Orthopaedics Comment on above: Left hip pain Start: 12-14-2024 End: 03-15-2025 25-hydroxyvitamin D3 [Mass/volume] in Serum or Plasma [facility] Comment on above: Expected: 12/14/2024, Expires: Start: 12-14-2024 End: 03-15-2025 Ferritin [Mass/volume] in Serum or Plasma [facility] Comment on above: Expected: 12/14/2024, Expires: Start: 12-14-2024 End: 03-15-2025 Iron and Iron binding capacity panel - Serum or Plasma [facility] Work Phone: Comment on above: Expected: 12/14/2024, Expires: Start: 12-14-2024 End: 12-14-2024 Patient encounter procedure 12/14/2024 1:30 PM EDT Office Visit Geriatrics [address] [facility] [place] [address] Cami Mars MD [address] [facility] [place] [address] Fatigue, unspecified type [R53.83] Geriatrics Comment on above: Fatigue, unspecified type [R53.83] Start: 10-20-2024 End: 10-20-2024 Patient encounter procedure 10/20/2024 1:30 PM EST Office Visit Pulmonary Medicine [address] [place] [address] sAhely Miller MD [address] [place] [address] Bronchiectasis without complication (HCC) [J47.9]; Nocturnal hypoxia [G47.34] Pulmonary Medicine Comment on above: Bronchiectasis without complication (HCC ) [J47.9]; Nocturnal hypoxia [G47.34] Start: 10-11-2024 End: 10-11-2024 Patient encounter procedure 10/11/2024 2:40 PM EST Office Visit Internal Medicine [place] [address] [facility] [place] [address] Dia Lopez, IT DIRECTOR.TOY CONSULTANT [address] [facility] [place] [address] 6 mo follow up Internal Medicine [place] Comment on above: 6 mo follow up Start: 10-04-2024 End: 10-04-2024 Patient encounter procedure 10/04/2024 2:40 PM EST Office Visit Internal Medicine [place] [address] [facility] [place] [address] Dia Lopez, IT DIRECTOR.TOY CONSULTANT [address] [place] [address] 6 mo follow up Internal Medicine [place] Comment on above: 6 mo follow up Start: 09-30-2024 End: 09-30-2024 Patient encounter procedure 09/30/2024 2:20 PM EST Office Visit Internal Medicine [place] [address] [place] [address] Dia Lopez, IT DIRECTOR.TOY CONSULTANT [address] [place] [address] 6 month follow up Internal Medicine [place] Comment on above: 6 month follow up Start: 09-30-2024 Covid-19 Vaccine () Covid-19 Vaccine () [facility] Comment on above: Postponed from 05/08/2023 (Declined at t his time) Start: 09-07-2024 Advance Directive Discussion Advance Directive Discussion [facility] Start: 09-05-2024 [facility] Start: 09-05-2024 [facility] Start: 08-08-2024 Incentive spirometry [facility] Start: 08-08-2024 End: 08-08-2024 [facility] Start: 07-18-2024 DIABETES SCREEN DIABETES SCREEN [facility] Start: 07-08-2024 End: 07-08-2024 Patient encounter procedure Neurology Comment on above: follow up after sleep test follow up after slee p test, need results from [facility] Start: 07-06-2024 End: 07-06-2024 Patient encounter procedure 07/06/2024 3:00 PM EDT Office Visit PHYSICAL MEDICINE & REHAB [address] [address] Ailyn Bonner, IT DIRECTOR.TOY CONSULTANT [address] [place] [address] 6 month follow up [facility] Comment on above: 6 month follow up Start: 06-23-2024 End: 06-23-2024 ambulatory 06/23/2024 1:15 PM EDT OT/PT/Speech Visit [facility] Physical Therapy [address] [place] [address] Jackie Lainez, PT I60.9 (ICD-10-CM) - Subarachnoid hemorrhage (HCC) [facility] Comment on above: I60.9 (ICD-10-CM) - Subarachnoid hemorrh age (HCC) Start: 06-16-2024 End: 06-16-2024 ambulatory 06/16/2024 1:15 PM EDT OT/PT/Speech Visit [facility] Physical Therapy [address] [place] [address] Jackie Lainez, PT I60.9 (ICD-10-CM) - Subarachnoid hemorrhage (HCC) [facility] Physical Therapy Comment on above: I60.9 (ICD-10-CM) - Subarachnoid hemorrh age (HCC) Start: 06-09-2024 End: 06-09-2024 ambulatory 06/09/2024 11:45 AM EDT OT/PT/Speech Visit [facility] Physical Therapy [address] [place] [address] [facility] CRYPTOGRAPHY TEACHER [address] [place] [address] I60.9 (ICD-10-CM) - Subarachnoid hemorrhage (HCC) [facility] Physical Therapy Comment on above: I60.9 (ICD-10-CM) - Subarachnoid hemorrh age (HCC) Start: 06-02-2024 End: 06-02-2024 ambulatory 06/02/2024 1:15 PM EDT OT/PT/Speech Visit [facility] Physical Therapy [address] [place] [address] Jackie Lainez, PT I60.9 (ICD-10-CM) - Subarachnoid hemorrhage (HCC) [facility] Physical Therapy Comment on above: I60.9 (ICD-10-CM) - Subarachnoid hemorrh age (HCC) Start: 05-27-2024 End: 08-26-2024 Basic metabolic 2000 panel - Serum or Plasma [facility] Comment on above: Expected: 05/27/2024, Expires: Start: 05-27-2024 End: 08-26-2024 Natriuretic peptide.B prohormone N-Terminal [Mass/volume] in Serum or Plasma [facility] Comment on above: Expected: 05/27/2024, Expires: Start: 05-27-2024 End: 05-27-2024 Patient encounter procedure 05/27/2024 8:00 AM EDT Office Visit Internal Medicine [place] [address] [place] [address] Ken Contreras MD [address] [facility] [place] [address] follow up per PT [facility] [place] Comment on above: follow up per PT Start: 05-26-2024 End: 05-26-2024 ambulatory 05/26/2024 3:45 PM EDT OT/PT/Speech Visit [facility] Physical Therapy [address] [place] [address] Jackie Lainez, PT I60.9 (ICD-10-CM) - Subarachnoid hemorrhage (HCC) [facility] Physical Therapy Comment on above: I60.9 (ICD-10-CM) - Subarachnoid hemorrh age (HCC) Start: 05-26-2024 End: 05-26-2024 Patient encounter procedure 05/26/2024 1:50 PM EDT Office Visit Cardiology [address] [place] [address] Chest discomfort [R07.89] Cardiology Comment on above: Chest discomfort [R07.89] Start: 05-19-2024 End: 05-19-2024 ambulatory 05/19/2024 12:30 PM EDT OT/PT/Speech Visit [facility] Physical Therapy [address] [place] [address] Jackie Lainez, PT I60.9 (ICD-10-CM) - Subarachnoid hemorrhage (HCC) [facility] Physical Therapy Comment on above: I60.9 (ICD-10-CM) - Subarachnoid hemorrh age (HCC) Start: 05-16-2024 End: 05-16-2024 Patient encounter procedure 05/16/2024 11:30 AM EDT Office Visit Otolaryngology [address] [place] [address] Rhoda Alcazar MD [address] [place] [address] Odynophagia [R13.10] Otolaryngology Comment on above: Odynophagia [R13.10] Start: 05-13-2024 End: 05-13-2024 Patient encounter procedure 05/13/2024 9:40 AM EDT Office Visit Internal Medicine [place] [address] [place] [address] Dia Lopez, IT DIRECTOR.TOY CONSULTANT [address] [place] [address] Evaluate for hypoxia per HSAT [facility] [place] Comment on above: Evaluate for hypoxia per [facility]AT Start: 05-12-2024 End: 05-12-2024 ambulatory 05/12/2024 11:45 AM EDT OT/PT/Speech Visit [facility] Physical Therapy [address] [place] [address] Kaela Brasher, DIONI [address] [place] [address] I60.9 (ICD-10-CM) - Subarachnoid hemorrhage (HCC) [facility] Physical Therapy Comment on above: I60.9 (ICD-10-CM) - Subarachnoid hemorrh age (HCC) Start: 05-08-2024 Covid-19 Vaccine ( season) Covid-19 Vaccine ( season) [facility] Start: 05-08-2024 Influenza vaccination Influenza Vaccine (#1) [facility] Start: 05-05-2024 End: 05-05-2024 ambulatory 05/05/2024 12:30 PM EDT OT/PT/Speech Visit [facility] Physical Therapy [address] [place] [address] Jackie Lainez PT I60.9 (ICD-10-CM) - Subarachnoid hemorrhage (HCC) [facility] Physical Therapy Comment on above: I60.9 (ICD-10-CM) - Subarachnoid hemorrh age (HCC) Start: 05-03-2024 End: 05-03-2024 Patient encounter procedure 05/03/2024 10:00 AM EDT Office Visit Neurology [address] [place] [address] Hypersomnia [G47.10]; 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]; Insomnia, unspecified type [G47.00]; Snoring [R06.83] Neurology Comment on above: Hypersomnia [G47.10]; Delayed sleep phas e syndrome [G47.21]; Insomnia, unspecified type [G47.00]; Snoring [R06.83] Start: 04-26-2024 End: 04-26-2024 ambulatory 04/26/2024 3:00 PM EDT OT/PT/Speech Visit [facility] [address] [place] [address] Jackie Lainez PT Subarachnoid hemorrhage (HCC) [I60.9] [facility] Comment on above: Subarachnoid hemorrhage (HCC) [I60.9] Start: 04-21-2024 End: 04-21-2024 Follow-up encounter 04/21/2024 1:00 PM EDT [facility] [address] [phone] Michelle Vazquez APRN.TOY CONSULTANT [address] [facility] [place] [address] 3 month follow up. Please call [phone] [facility] Comment on above: 3 month follow up. Please call [phone] Start: 04-18-2024 End: 04-18-2024 Patient encounter procedure 04/18/2024 8:00 AM EDT Office Visit Neurology [address] [place] [address] Kaya Cartwright Jr., MD [address] [facility] [address] [place] [id number] Sleep apnea, unspecified type [G47.30] Neurology Comment on above: Sleep apnea, unspecified type [G47.30] Start: 03-30-2024 End: 03-30-2024 Patient encounter procedure 03/30/2024 3:00 PM EDT Office Visit [facility] [place] [address] [place] [address] Dia Lopez, IT DIRECTOR.TOY CONSULTANT [address] [place] [address] 6 month follow up [facility] Comment on above: 6 month follow up Start: 02-26-2024 End: 02-26-2024 Patient encounter procedure 02/26/2024 1:00 PM EDT OT/PT/Speech Visit [facility] [address] [place] [phone] Jose Diaz CCC-MANAGER STRATEGIC DEVELOPMENT [address] [place] [address] Personal history of traumatic brain injury [facility] Comment on above: Personal history of traumatic brain inju ry Start: 01-27-2024 End: 01-27-2024 Patient encounter procedure 01/27/2024 3:30 PM EDT OT/PT/Speech Visit [facility] [address] [place] [phone] Jose Diaz CCC-MANAGER STRATEGIC DEVELOPMENT [address] [place] [address] Personal history of traumatic brain injury [Z87.820] [facility] Comment on above: Personal history of traumatic brain inju ry [Z87.820] Start: 01-21-2024 End: 01-21-2024 Patient encounter procedure 01/21/2024 2:00 PM EDT Office Visit [facility] [address] [phone] Michelle Vazquez APRN.TOY CONSULTANT [address] [facility] [place] [address] 3 mos fu [facility] Comment on above: 3 mos fu Start: 10-02-2023 [facility] Start: 08-01-2023 COVID-19 VACCINE (4 - Booster for Leon series) COVID-19 VACCINE (4 - Booster for Leon series) [facility] Comment on above: Postponed from 03/20/2022 (Declined at t his time) Start: 06-19-2023 Urine microalbumin profile DTAP,TDAP,TD (2 - Td or Tdap) [facility] Comment on above: Postponed from 06/22/2022 (Declined at t his time) Start: 05-08-2023 Covid-19 Vaccine ( season) Covid-19 Vaccine ( season) [facility] Start: 05-08-2023 Influenza vaccination INFLUENZA (#1) [facility] Start: 03-06-2023 Influenza vaccination INFLUENZA (#1) [facility] Comment on above: Postponed from 05/08/2022 (Declined at t his time) Start: 01-29-2023 End: 03-31-2023 Basic metabolic 2000 panel - Serum or Plasma BASIC METABOLIC PNL Lab Routine Essential hypertension Expected: 01/29/2023, Expires: 03/31/2023 [facility] Work Phone: Comment on above: Expected: 01/29/2023, Expires: 3 Start: 01-29-2023 End: 03-31-2023 Thyrotropin [Units/volume] in Serum or Plasma TSH BLD Lab Routine Acquired hypothyroidism Expected: 01/29/2023, Expires: 03/31/2023 [facility] Work Phone: Comment on above: Expected: 01/29/2023, Expires: 3 Start: 09-07-2022 ADVANCE DIRECTIVE DISCUSSION ADVANCE DIRECTIVE DISCUSSION [facility] Start: 07-26-2022 End: 09-25-2022 ALK PHOS ISOENZYM BL ALK PHOS ISOENZYM BL Lab Routine Elevated alkaline phosphatase measurement Expected: 07/26/2022, Expires: 09/25/2022 [facility] Work Phone: Comment on above: Expected: 07/26/2022, Expires: 3 Start: 07-26-2022 End: 09-25-2022 Basic metabolic 2000 panel - Serum or Plasma BASIC METABOLIC PNL Lab Routine Essential hypertension Expected: 07/26/2022, Expires: 09/25/2022 [facility] Work Phone: Comment on above: Expected: 07/26/2022, Expires: 3 Start: 07-26-2022 End: 09-25-2022 CBC panel - Blood by Automated count CBC Lab Routine Essential hypertension Expected: 07/26/2022, Expires: 09/25/2022 [facility] Work Phone: Comment on above: Expected: 07/26/2022, Expires: 3 Start: 07-26-2022 End: 09-25-2022 LIPID PANEL BASIC LIPID PANEL BASIC Lab Routine Essential hypertension Expected: 07/26/2022, Expires: 09/25/2022 [facility] Work Phone: Comment on above: Expected: 07/26/2022, Expires: 3 Start: 07-26-2022 End: 09-25-2022 VITAMIN D 25 HYDROXY VITAMIN D 25 HYDROXY Lab Routine Vitamin D deficiency Expected: 07/26/2022, Expires: 09/25/2022 [facility] Work Phone: Comment on above: Expected: 07/26/2022, Expires: 3 Start: 07-07-2022 End: 09-06-2022 Bacteria identified in Urine by Culture URINE CULTURE Microbiology Routine Recurrent UTI (urinary tract infection) Expected: 07/07/2022 (Approximate), Expires: 09/06/2022 [facility] Work Phone: Comment on above: Expected: 07/07/2022 (Approximate), Expi res: 09/06/2022 Start: 07-07-2022 End: 09-06-2022 Urinalysis complete panel - Urine URINALYSIS, WITH MICROSCOPIC Lab Routine Recurrent UTI (urinary tract infection) Expected: 07/07/2022 (Approximate), Expires: 09/06/2022 [facility] Work Phone: Comment on above: Expected: 07/07/2022 (Approximate), Expi res: 09/06/2022 Start: 06-22-2022 Urine microalbumin profile DTAP,TDAP,TD (2 - Td or Tdap) [facility] Start: 05-08-2022 Influenza vaccination INFLUENZA (#1) [facility] Start: 03-20-2022 COVID-19 VACCINE (4 - Booster for Leon series) COVID-19 VACCINE (4 - Booster for Leon series) [facility] Start: 12-31-2021 SHINGRIX VACCINE (3 of 3) SHINGRIX VACCINE (3 of 3) [facility] Start: 09-07-2021 ADVANCE DIRECTIVE DISCUSSION ADVANCE DIRECTIVE DISCUSSION [facility] Start: 01-20-2018 End: 01-20-2018 Appointment Appointment [facility] Phone: Start: 07-27-2017 End: 07-27-2017 Appointment Appointment [facility] Phone: Start: 07-27-2017 End: 04-15-2017 Ct thorax w/o contrast material CT Chest without contrast [facility] Phone: Start: 07-24-2017 End: 07-24-2017 [facility] Phone: Start: 07-24-2017 End: 07-24-2017 Follow Up Appt 6 months Follow Up Appt 6 months [facility] Phone: Start: 07-24-2017 End: 07-24-2017 Appointment Appointment [facility] Phone: Start: 05-05-2017 End: 05-05-2017 Esophagogastroduodenoscopy transoral diagnostic EGD; diagnostic [facility] Phone: Start: 04-15-2017 End: 07-23-2017 [facility] D[facility] Work Phone: Start: 04-15-2017 End: 07-23-2017 Follow Up Appt 3 months Follow Up Appt 3 months [facility] Work Phone: Start: 03-05-2017 End: 03-05-2017 [facility] Work Phone: Start: 03-05-2017 End: 03-05-2017 Follow Up Appt 6 weeks Follow Up Appt 6 weeks [facility] Work Phone: Start: 03-05-2017 End: 03-05-2017 Thyroid stimulating hormone (TSH) *TSH [facility] Work Phone: Start: 02-23-2017 End: 02-23-2017 Follow Up as scheduled Follow Up as scheduled [facility] Work Phone: Start: 01-08-2017 End: 01-11-2017 Ct thorax w/o contrast material CT Chest without contrast [facility] Work Phone: Start: 01-08-2017 End: 01-08-2017 DMB D[facility] Work Phone: Start: 01-08-2017 End: 01-08-2017 Follow Up Appt 2 months Follow Up Appt 2 months [facility] Work Phone: Start: 11-27-2016 End: 12-16-2016 DMB D[facility] Work Phone: Start: 11-27-2016 End: 12-16-2016 Follow Up Appt 2 months Follow Up Appt 2 months [facility] Work Phone: Start: 11-27-2016 End: 12-16-2016 Pulmonary Function Test - complete Pulmonary Function Test - complete [facility] Work Phone: Start: 11-27-2016 End: 12-16-2016 Pulmonary stress test/simple Pulmonary stress testing; simple (eg, 6-minute walk) [facility] Work Phone: Start: 02-22-2012 RSV Vaccine (1 - 1-dose 75+ series) RSV Vaccine (1 - 1-dose 75+ series) [facility] Start: 11-12-2011 SHINGRIX VACCINE (2 of 3) SHINGRIX VACCINE (2 of 3) [facility] Start: 1997 RSV Vaccine (1 - 1-dose 60+ series) RSV Vaccine (1 - 1-dose 60+ series) [facility] Bacteria identified in Urine by Culture URINE CULTURE Microbiology Routine Dysuria 06/19/2022 1:19 PM EDT [facility] Work Phone: ECG COMPLETE ECG COMPLETE ECG Routine Chest discomfort Ordered: 05/13/2024 [facility] Work Phone: Comment on above: Ordered: 05/13/2024 End: 05-13-2025 Echocardiography ECHO Cardiology Routine Chest discomfort Nocturnal hypoxia 1 Occurrences starting 05/13/2024 until 05/13/2025 [facility] Comment on above: 1 Occurrences starting 05/13/2024 until 05/13/2025 HOME SLEEP APNEA TEST (HSAT) PANCHO E SLEEP APNEA TEST (HSAT) Procedures Routine Hypersomnia Delayed sleep phase syndrome Insomnia, unspecified type Snoring 1 Occurrences starting 04/18/2024 [facility] Work Phone: Comment on above: 1 Occurrences starting 04/18/2024 LUNG VOLUMES LUNG VOLUMES PFT Routine MARTINES (dyspnea on exertion) 02/03/2025 2:22 PM EDT [facility] Work Phone: End: 08-06-2024 SOPHIE DIAGNOSTIC LEFT SOPHIE DIAGNOSTIC LEFT Radiology Routine Abnormal screening mammogram 1 Occurrences starting 07/08/2023 until 08/06/2024 [facility] Work Phone: Comment on above: 1 Occurrences starting 07/08/2023 until 08/06/2024 End: 06-19-2024 SOPHIE SCREENING SOPHIE SCREENING Radiology Routine Screening mammogram for breast cancer 1 Occurrences starting 05/21/2023 until 06/19/2024 [facility] Work Phone: Comment on above: 1 Occurrences starting 05/21/2023 until 06/19/2024 OXIMETRY - NOCTURNAL OXIMETRY - NOCTURNAL Procedures Routine Pulmonary hypertension (HCC) Ordered: 10/20/2024 [facility] Work Phone: Comment on above: Ordered: 10/20/2024 OXIMETRY - NOCTURNAL OXIMETRY - NOCTURNAL Procedures Routine Chronic obstructive pulmonary disease, unspecified COPD type (HCC) Ordered: 12/13/2024 [facility] Work Phone: Comment on above: Ordered: 12/13/2024 Patient Education [facility] Work Phone: Patient referral [facility] Work Phone: End: 05-16-2025 Polysomnogram POLYSOMNOGRAM (PSG) Procedures Routine Nocturnal hypoxia Sleep apnea-like behavior Class 1 obesity with body mass index (BMI) of 31.0 to 31.9 in adult, unspecified obesity type, unspecified whether serious comorbidity present Hypersomnia Insomnia, unspecified type Snoring 1 Occurrences starting 05/16/2024 until 05/16/2025 [facility] Work Phone: Comment on above: 1 Occurrences starting 05/16/2024 until 05/16/2025 SPIROMETRY - BASELIN E AND POST DILATOR SPIROMETRY - BASELINE AND POST DILATOR PFT Routine MARTINES (dyspnea on exertion) 02/03/2025 2:22 PM EDT [facility] Work Phone: End: 08-06-2024 US BREAST LTD LEFT US BREAST LTD LEFT Radiology Routine Abnormal screening mammogram 1 Occurrences starting 07/08/2023 until 08/06/2024 [facility] Work Phone: Comment on above: 1 Occurrences starting 07/08/2023 until 08/06/2024 End: 06-26-2025 XR Chest PA and Lateral XR CHEST 2V FRONTAL/LAT Radiology Routine Oxygen desaturation 1 Occurrences starting 05/27/2024 until 06/26/2025 [facility] Work Phone: Comment on above: 1 Occurrences starting 05/27/2024 until 06/26/2025 XR Chest PA and Lateral XR CHEST 2V FRONTAL/LAT Radiology Routine Oxygen desaturation 05/27/2024 9:18 AM EDT [facility] XR Pelvis and Hip - left AP and Lateral frog XR HIP GENERAL 3V PELV/AP/LAT LEFT Radiology Routine Hip pain, left 11/24/2024 7:04 PM EDT [facility] Work Phone: End: 12-24-2025 XR Pelvis and Hip - left AP and Lateral frog XR HIP GENERAL 3V PELV/AP/LAT LEFT Radiology Routine Hip pain, left 1 Occurrences starting 11/24/2024 until 12/24/2025 [facility] Work Phone: Comment on above: 1 Occurrences starting 11/24/2024 until 12/24/2025 [facility] Immunizations Immunization Date Immunization Notes Care Provider [facility] 11-02-2024 respiratory syncytia l virus (RSV) vaccine, adjuvanted (AREXVY) Dian Rodas MD Work Phone: [facility] 05-27-2024 influenza, high dose seasonal, preservative-free Ken Contreras MD Work Phone: [facility] 05-27-2024 influenza virus vaccine, unspecified formulation Dia Hussain IT DIRECTOR.TOY CONSULTANT Work Phone: [facility] 05-21-2023 TD(adult) unspecifie d formulation Dia Older IT DIRECTOR.TOY CONSULTANT Work Phone: [facility] Work Phone: 05-21-2023 influenza (HD-IIV4) vaccine, age 65+ yr, high dose, quadrivalent, PF (FLUZONE HIGH-DOSE) Dia Older IT DIRECTOR.TOY CONSULTANT Work Phone: [facility] 05-21-2023 tetanus and diphther ia toxoids, adsorbed, preservative free, for adult use (5 Lf of tetanus toxoid and 2 Lf of diphtheria toxoid) Dia Older IT DIRECTOR.TOY CONSULTANT Work Phone: [facility] 05-21-2023 influenza virus vaccine, unspecified formulation Dia Hussain IT DIRECTOR.TOY CONSULTANT Work Phone: [facility] 08-19-2022 influenza, injectabl e, quadrivalent, preservative free Dr. Ken Contreras Work Phone: [facility] 08-19-2022 influenza, seasonal, injectable Dr. Ken Contreras Work Phone: [facility] 04-14-2022 zoster vaccine recombinant Ken Contreras MD Work Phone: [facility] 01-23-2022 COVID-19 vaccine, ag e 12+ yr (LIQVID-[facility]) Ken Contreras MD Work Phone: [facility] Work Phone: 11-05-2021 zoster vaccine recombinant Ken Contreras MD Work Phone: [facility] Work Phone: 05-30-2021 influenza, injectabl e, quadrivalent, preservative free Dr. Ken Contreras Work Phone: [facility] 05-30-2021 influenza, seasonal, injectable Dr. Ken Contreras Work Phone: [facility] Work Phone: 05-30-2021 influenza, seasonal, injectable, preservative free Dia Older IT DIRECTOR.TOY CONSULTANT Work Phone: [facility] Work Phone: 11-15-2020 COVID-19 vaccine (LEON) Dia Older IT DIRECTOR.TOY CONSULTANT Work Phone: [facility] Work Phone: 07-04-2020 influenza, high-dose , quadrivalent vaccine (FLUZONE HIGH DOSE QUADRIVALENT) Dia Older IT DIRECTOR.TOY CONSULTANT Work Phone: [facility] Work Phone: 07-07-2019 influenza, high dose seasonal, preservative-free Dia Older IT DIRECTOR.TOY CONSULTANT Work Phone: [facility] Work Phone: 06-30-2018 influenza, high dose seasonal, preservative-free Dia Older IT DIRECTOR.TOY CONSULTANT Work Phone: [facility] Work Phone: 06-24-2017 influenza, high dose seasonal, preservative-free Dia Older IT DIRECTOR.TOY CONSULTANT Work Phone: [facility] 06-24-2017 pneumococcal polysaccharide vaccine, 23 valent Dia Older IT DIRECTOR.TOY CONSULTANT Work Phone: [facility] 05-20-2016 influenza, high dose seasonal, preservative-free Dia Older IT DIRECTOR.TOY CONSULTANT Work Phone: [facility] 05-12-[address] Ken Contreras Work Phone: [facility] 05-12-2016 influenza, seasonal, injectable, preservative free Dia Older IT DIRECTOR.TOY CONSULTANT Work Phone: [facility] Work Phone: 09-24-2015 influenza, high dose seasonal, preservative-free Dia Older IT DIRECTOR.TOY CONSULTANT Work Phone: [facility] 09-12-2014 pneumococcal conjuga te vaccine, 13 valent Dia Older IT DIRECTOR.TOY CONSULTANT Work Phone: [facility] 08-07-2014 influenza, seasonal, injectable Dia Older IT DIRECTOR.TOY CONSULTANT Work Phone: [facility] Work Phone: 06-27-2013 influenza virus vaccine, unspecified formulation Dia Older IT DIRECTOR.TOY CONSULTANT Work Phone: [facility] 06-22-2012 influenza virus vaccine, unspecified formulation Dia Older IT DIRECTOR.TOY CONSULTANT Work Phone: [facility] 06-22-2012 tetanus toxoid, redu natalee diphtheria toxoid, and acellular pertussis vaccine, adsorbed Dia Older IT DIRECTOR.TOY CONSULTANT Work Phone: [facility] 09-17-2011 zoster vaccine, live Dia Old er IT DIRECTOR.TOY CONSULTANT Work Phone: [facility] 06-19-2011 influenza virus vaccine, unspecified formulation Dia Older IT DIRECTOR.TOY CONSULTANT Work Phone: [facility] 06-18-2010 influenza virus vaccine, unspecified formulation Dia Older IT DIRECTOR.TOY CONSULTANT Work Phone: [facility] 06-07-2009 influenza virus vaccine, unspecified formulation Dia Older IT DIRECTOR.[facility] Work Phone: [facility] Work Phone: 07-18-2008 influenza virus vaccine, unspecified formulation Dia Older IT DIRECTOR.TOY CONSULTANT Work Phone: [facility] Work Phone: 07-12-2007 influenza virus vaccine, unspecified formulation Dia Older IT DIRECTOR.TOY CONSULTANT Work Phone: [facility] Work Phone: 07-06-2006 influenza virus vaccine, unspecified formulation Dia Older IT DIRECTOR.TOY CONSULTANT Work Phone: [facility] 10-06-2005 pneumococcal polysaccharide vaccine, 23 valent Dia Older IT DIRECTOR.TOY CONSULTANT Work Phone: [facility] 08-13-2005 influenza virus vaccine, unspecified formulation Dia Older IT DIRECTOR.TOY CONSULTANT Work Phone: [facility] 01-03-2004 hepatitis B vaccine, adult dosage Dia Older IT DIRECTOR.TOY CONSULTANT Work Phone: [facility] Work Phone: 06-14-2003 hepatitis B vaccine, adult dosage Dia Older IT DIRECTOR.TOY CONSULTANT Work Phone: [facility] Work Phone: 05-15-2003 hepatitis B vaccine, adult dosage Dia Older IT DIRECTOR.TOY CONSULTANT Work Phone: [facility] Work Phone: Payers Date Payer Category Payer Self-pay [id number] 2016 [facility] ANTHEM ME DICARE SUPPLEMENT [id number] 2016 Unknown ANTHEM ANTHEM ME DICARE SUPPLEMENT [id number] 2016-Present [phone] [id number] [place], [place] [address] Indemnity [id number] 2016 Unknown ANTHEM ANTHEM ME DICARE SUPPLEMENT [id number] 2016-Present [phone] [id number] [place], [place] [address] Indemnity [id number] 2016 Unknown [id number] 2002 Medicare MEDICARE MEDICAR E A AND B [id number] 2002-Present [phone] [place] [address] Medicare [id number] 2002 Medicare [id number] 2002 Medicare [id number] Unknown [id number] Unknown [id number] Unknown [id number]. 2.462 Unknown [id number]. 2.462 Unknown [id number]. 2.462 Unknown [id number]. 2.462 Unknown [id number] 2.462 Unknown [id number] 2.462 Unknown [id number] 2.462 Unknown [id number] 2.462 Unknown [id number] 2.462 Unknown [id number]. 2.462 Unknown [id number] 2.462 Unknown [id number]. 2.462 Unknown [id number] 2.462 Unknown [id number] 2.462 Social History Date Type Detail Facility Start: 12-15-2011 End: 05-13-2024 Tobacco smoking status NHIS Ex-smoker [facility] Start: 05-14-1955 End: 05-14-1965 History of tobacco use Current smoker [facility] Start: 05-14-1955 End: 05-14-1965 History of tobacco use Cigarette Smoker [facility] Start: 10-08-2021 End: 04-07-2025 Alcohol intake Current drinker of alcohol (finding) [facility] Start: 07-23-2020 End: 08-01-2022 History SDOH Alcohol Frequency 3 [facility] Start: 07-23-2020 End: 08-01-2022 History SDOH Alcohol Std Drinks 1 [facility] Start: 05-01-2021 History SDOH Alcohol Comment 1/2 glass of wine twice per month [facility] Start: 01-03-2020 End: 08-01-2022 History SDOH Social Connections Phone 5 [facility] Start: 07-03-2020 End: 08-01-2022 History SDOH Social Connections Get Together 2 [facility] Start: 07-03-2020 End: 08-01-2022 History SDOH Social Connections Zoroastrianism 98 [facility] Start: 01-03-2020 History SDOH Physica l Activity DPW 0 [facility] Start: 01-03-2020 Education 21 [facility] Start: 1935 Sex Assigned At Female C [facility] Start: 10-01-2021 End: 10-02-2023 Tobacco smoking status AKIS Unknown if ever smoked [facility] Start: 11-18-2016 None [facility] Start: 11-18-2016 With Family [facility] Start: 11-18-2016 Non-smoker [facility] Start: 01-13-2022 End: 07-15-2022 Exposure to SARS-CoV-2 (event) Not sure [facility] Work Phone: Start: 12-15-2011 End: 01-30-2023 Cigarettes smoked current (pack per day) - Reported 0.5 [facility] Start: 12-15-2011 End: 05-13-2024 Tobacco use and exposure Smokeless tobacco non-user [facility] Start: 08-01-2022 End: 01-30-2023 Social connection and isolation panel [facility] How often do you get together with friends or relatives? Patient refused [facility] Are you now , , , , never or living with a partner? [facility] How often to you hav e a drink containing alcohol? 2-4 times a month [facility] How many standard drinks containing alcohol do you have on a typical day? 1 or 2 [facility] How often do you hav e 6 or more drinks on 1 occasion? Never [facility] Do you feel stress - tense, restless, nervous, or anxious, or unable to sleep at night because your mind is troubled all the time - these days [OSQ] Only a little [facility] The food that (I/we) bought just didn't last, and (I/we) didn't have money to get more. Never true [facility] In the past 12 month s, was there a time when you were not able to pay the mortgage or rent on time? No [facility] Start: 01-03-2020 Gender identity Identifies as female gender (finding) [facility] Start: 01-03-2020 Sexual orientation Heterosexual (fin trevor) [facility] Are you now , , , , never or living with a partner? Living with partner [facility] How often to you hav e a drink containing alcohol? Monthly or less [facility] History of tobacco use Passive smoker [facility] Do you feel stress - tense, restless, nervous, or anxious, or unable to sleep at night because your mind is troubled all the time - these days [OSQ] Not at all [facility] Start: 11-22-2024 Sex Female (finding) Therese valentin Medical Equipment Procedure Code Equipment Code Equipment Origin al Text Equipment Identifier Dates ([id number]) Dual-chamber implantable pacemaker, rate-responsive ()[id number] FDA Start: 05-29-2021 ([id number]) Endocardial paci ng lead ()[id number] [id number] FDA Start: 05-29-2021 ([id number]) Endocardial paci ng lead ()[id number] FDA Start: 05-29-2021 Functional Status Date Assessment Result Facility 04-13-2015 Are you deaf, or do you have serious difficulty hearing No 04/13/2015 2:32 PM EDT Shayla Nguyen MA No [facility] 04-13-2015 Are you blind, or do you have serious difficulty seeing, even when wearing glasses No 04/13/2015 2:32 PM EDT Shayla Nguyen MA No [facility] 04-13-2015 Do you have serious difficulty walking or climbing stairs No 04/13/2015 2:32 PM EDT Shayla Nguyen MA No [facility] 04-13-2015 Do you have difficul ty dressing or bathing No 04/13/2015 2:32 PM EDT Shayla Nguyen MA No [facility] 04-13-2015 Because of a physica l, mental, or emotional condition, do you have difficulty doing errands alone such as visiting a physician's office or shopping No 04/13/2015 2:32 PM EDT Shayla Nguyen MA No [facility] Mental Status Date Assessment Result Facility 04-13-2015 Because of a physica l, mental, or emotional condition, do you have serious difficulty concentrating, remembering, or making decisions No 04/13/2015 2:32 PM EDT Shayla Nguyen MA No [facility] Clinical Notes 04-19-2021 to 04-11-2025 Ashely Miller MD - 04/07/2025 10:29 AM EDTTelephone Encounter - Kailey Caraballo LPN - 04/06/2025 2:55 PM EDTTelephone Encounter - Kailey Caraballo LPN - 04/06/2025 2:55 PM EDT Note Date & Type Note Facility 04-11-2025 Note [facility] 04-07-2025 Note [facility] 04-07-2025 History of Presen t illness Narrative Images from the original note were not included. . [facility] [place] Note Patient name: Geoffrey Nassar PCP: Ken Contreras MD CC: Cough HPI: Geoffrey Nassar 89 year old female former remote smoker with PMH significant for asthma, depression, hypothyroidism, CAD, GERD, history of bilateral pulmonary emboli 2017, history of subarachnoid hemorrhage, PPM and bronchiectasis. At last office visit in October, she was reestablishing care after previously following with [facility] pulmonary but last seen in 2011. She had an HSAT which showed significant desaturations but her in-lab study was only pertinent for altered circadian rhythm and desaturations, only 2 minutes with SpO2 less than 88%. One L of oxygen was recommended but not prescribed. I ordered overnight oximetry testing. Patient was instructed to use her Acapella device daily, continued inhaled therapy with Breo Ellipta and as needed albuterol. She presents today for follow-up visit. Nocturnal oximetry confirmed need for supplemental oxygen and she was started on 2 L. Repeat oximetry on 2 L reported insufficient oxygen supplementation but actual review of her tracing shows the probe was not on her finger. With adequate pulse tracking her oxygen saturation remained above 90%. Recent NM stress test was normal. She continues to have significant daytime fatigue. She has had several falls most recently several weeks ago where she injured her right chest. She had significant chest pain and difficulty taking a deep breath. Currently no chest pain. She has had increased cough starting approximately 3 weeks ago. She states she is unable to expectorate mucus despite using her flutter valve. She has a chest vest at home but does not use it. She has had chest congestion, hot flashes in the afternoon, no wheezing. Chest x-ray was obtained but does not show evidence of pneumonia. DME: [employer] 2 L nocturnal DATA: PFT 01/2025: Imaging / Diagnostic Studies: DATE OF EXAM: Mar 28 2025 5:17PM WOX 5291 - XR CHEST 2V FRONTAL/LAT / PROCEDURE REASON: Acute cough CLINICAL HISTORY: Acute cough MQ: [id number] EXAM DATE/TIME: 03/28/2025 5:17 PM COMPARISON: 01/25/2025 RESULT: Lines, tubes, and devices: Cardiac pacing device with generator obscuring portions of the left lung. Lead(s) overlying the RA and RV. Lungs and pleura: No consolidation. No lung mass. No pleural effusion. No pneumothorax. Cardiomediastinal silhouette: Normal cardiomediastinal silhouette. Bones and soft tissues: Degenerative changes are present within the thoracic spine. Chest x-ray reviewed shows no evidence of pneumonia PAST MEDICAL HISTORY Diagnosis Date Allergic conjunctivitis of both eyes 10/08/2021 Asthmatic bronchitis , chronic (HCC) 01/30/2023 Bradycardia 01/18/2021 Bronchiectasis without complication (HCC) 11/27/2009 Dr. Jaswant Miller, pulmonary. 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 Diverticulosis of small intestine (without mention of hemorrhage) Enthesopathy of hip region 07/08/2011 Essential hypertension 05/25/2008 Extrinsic asthma (HCC) 01/29/2006 Fall 10/03/2023 Family history of malignant neoplasm of gastrointestinal tract liver cancer Foraminal stenosis of cervical region 01/30/2012 Gait disturbance 01/29/2017 Gastroesophageal reflux disease with esophagitis 05/13/2013 HERNIA UMBILICAL 12/19/2005 Hypothyroidism 03/17/2005 Irritable bowel syndrome with both constipation and diarrhea 09/23/2016 Non-STEMI (non-ST elevated myocardial infarction) ([facility]) 11/19/2016 setting of acute bilateral pulmonary embolism. Nonexudative age-related macular degeneration, bilateral, intermediate dry stage 05/01/2020 Optic cupping of both eyes 05/01/2020 Oral murray 10/29/2020 Pacemaker 07/25/2021 Pulmonary embolism with acute cor pulmonale ([facility]) 11/24/2016 She was initially thought to have a NSTEMI, but was found to be a PE with Right Strain and NOT a NSTEMI. Pulmonary nodule 01/08/2017 Punctate keratitis, bilateral 10/08/2021 SAH (subarachnoid hemorrhage) ([facility]) 10/03/2023 Subarachnoid hemorrhage ([facility]) 10/03/2023 Tubular adenoma of colon 12/29/2017 ALLERGIES Allergen Reactions Shellfish Containin* Unknown Penicillamine Unknown Benadryl [Diphenhyd* Rash Cats Cipro [Ciprofloxaci* Itching Dust Ketamine Unknown Mold Shellfish Shortness of Breath Spiriva With Handih* Intolerance not help Sulfa (Sulfonamide * GI Upset Symbicort [Budesoni* Intolerance tremor,shaky Tetanus Toxoid Adso* Intolerance arm swell buPROPion XL (WELLBUTRIN XL) 300 mg 24 [...] thru Fridays. None on Saturdays and Sundays. furosemide (LASIX) 40 mg tablet Take 20 mg by mouth once daily. aspirin, enteric coated [...] Breath. MULTIVITAMIN TAB Take one(1) tablet daily. BREO ELLIPTA 100-25 mcg/dose inhaler Inhale 1 inhalation as instructed once daily. doxycycline hyclate (VIBRAMYCIN) 100 mg capsule Take 1 capsule by mouth two times a day for 10 days. Take with food. Avoid dairy. ergocalciferol 50,000 unit capsule (VITAMIN D2, DRISDOL) Take 1 capsule by mouth every 4 weeks. (Patient not taking: Reported on 04/07/2025) Social History Tobacco Use Smoking status: Former Current packs/day: 0.00 Average packs/day: 0.5 packs/day for 10.0 years (5.0 ttl pk-yrs) Types: Cigarettes Start date: 05/14/1955 Quit date: 05/14/1965 Years since quittin.9 Passive [...] REVIEW OF SYSTEMS: CONSTITUTIONAL: No fevers, chills, unintended weight loss. Hot flashes HEENT: Rhinorrhea CARDIOVASCULAR: No chest pain, palpitations, orthopnea. Edema PULM: See HPI : Cystitis NEURO: Balance issues with frequent falls. MUSC-SKEL: No joint pain INTEGUMENTARY: No new skin changes PHYSICAL EXAMINATION: BP 128/78 Pulse 60 Resp 16 Ht 5' 2 (1.58m) Wt 154 lb (69.9kg) SpO2 92% BMI 28.16 kg/(m^2). General Appearance: Elderly female, NAD. Skin: Skin color, texture, turgor normal, no suspicious rashes or lesions. Head: Normocephalic, no masses, lesions, tenderness or abnormalities. Oropharynx: No oral lesions, thrush, posterior pharyngeal drainage. Neck: No masses or adenopathy. Chest wall: Kyphosis Lungs: Not labored, normal to percussion, no wheezes or crackles or rhonchi. Heart: Regular rate and rhythm, no murmur. Extremities: Mild edema, no clubbing. Assessment/Plan: 1. Bronchiectasis with exacerbation -She was instructed to use her chest vest in addition to her flutter device -Prescribed doxycycline -No need for oral steroids 2. Nocturnal hypoxemia -She will continue on 2 L oxygen at night. Night oximetry testing showed adequate saturation on her 2 L -Persistent fatigue does not appear to be related to hypoxemia. May be related to her age 3. Mild intermittent asthma, uncomplicated - Good clinical control with Breo Ellipta -Refilled prescription Ashely Miller MD [facility] [place] documented in this encounter [facility] 04-06-2025 Telephone encounter Note Duplicate request. Kailey Caraballo LPN [facility] 04-06-2025 Miscellaneous Notes Duplicate request. Kailey Caraballo LPN Prescription Refill Information The patient has been identified by name and date of : Yes Caregiver verified no other encounters exist for this prescription request: Yes Caregiver confirmed with patient/requestor that no other refills are due, in the near future, with this provider at this time: Yes The last office visit in the department: 03/02/2025 Does the patient have a future office visit with this provider/department: Yes Requested Prescriptions Pending Prescriptions Disp Refills buPROPion XL (WELLBUTRIN XL) 300 mg 24 hr tablet 30 tablet 5 Sig: Take 1 tablet by mouth once daily. Neelam Noel April 06, 2025 2:41 PM documented in this encounter [facility] 04-06-2025 Telephone encounter Note Prescription Refill Information The patient has been identified by name and date of : Yes Caregiver verified no other encounters exist for this prescription request: Yes Caregiver confirmed with patient/requestor that no other refills are due, in the near future, with this provider at this time: Yes The last office visit in the department: 03/02/2025 Does the patient have a future office visit with this provider/department: Yes Requested Prescriptions Pending Prescriptions Disp Refills buPROPion XL (WELLBUTRIN XL) 300 mg 24 hr tablet 30 tablet 5 Sig: Take 1 tablet by mouth once daily. Neelam Noel April 06, 2025 2:41 PM [facility] 04-06-2025 Telephone encounter Note Patient has been identified by name [...] Please advise. Thank you. Kailey Caraballo LPN. [facility] 04-06-2025 Miscellaneous Notes Patient has been identified by name and [...] you. Kailey Caraballo LPN. documented in this encounter [facility] 04-06-2025 Telephone encounter Note Patient has been identified by name and date of : Yes Patient phones for refill(s): Requested Prescriptions Pending Prescriptions Disp Refills buPROPion XL (WELLBUTRIN XL) 300 mg 24 hr tablet 30 tablet 1 Sig: Take 1 tablet by mouth once daily. Date of last office visit in primary care: 03/02/2025 Date of next office visit in primary care: 04/11/2025 Please advise. Thank you. Kailey Caraballo LPN. [facility] 04-06-2025 Miscellaneous Notes Patient has been identified by name and date of : Yes Patient phones for refill(s): Requested Prescriptions Pending Prescriptions Disp Refills buPROPion XL (WELLBUTRIN XL) 300 mg 24 hr tablet 30 tablet 1 Sig: Take 1 tablet by mouth once daily. Date of last office visit in primary care: 03/02/2025 Date of next office visit in primary care: 04/11/2025 Please advise. Thank you. Kailey Caraballo LPN. documented in this encounter [facility] 03-31-2025 Progress note [facility] 03-31-2025 Progress note Note Date/Time March 31, 2025 1:49pm [facility] [place] [address] [facility] [place] [address] OFFICE VISIT Date of Service: 03/31/25 MR#: [id number] Acct: [id number] Name: GEOFFREY NASSAR RAMACIEL Rep #: [id number] : 1935 Provider: POWER Messer Age/Sex: 89/F Location: [facility] Status: Signed HPI HPI History of Present Illness Details: This is an 89-year-old female who presents here today for a [...] She underwent a PPM placement in 05/2021. She was in to see her PCP last month, stress test was ordered for low O2. Stress test was normal. She does not have any chest discomfort/heaviness/tightness. She does not have any worsening symptoms of shortness of breath. She does not have any orthopnea. She denies PND. She does not have any symptoms of congestive heart failure. She does not have any palpitations that she is aware of. She does not have any lightheadedness or dizziness. She does not have any near-syncope or syncope. She does not have any lower extremity edema. She does not have any symptoms of claudication. She does not ambulate well and is in a WC. She recently fell. BP is on the low side today. Intake Vital Signs 07/01/24 13:20 02/15/25 14:14 03/31/25 13:32 Height 5 ft 2 in 5 ft 2 in 5 ft 2 in Weight: 153 lb BMI 28.0 BP 98/60 Pulse 60 Intake Visit Reasons: 9 M FU Allergies ciprofloxacin (From Cipro) Allergy (Verified 02/15/25 14:16) Itching diphenhydramine (From Benadryl) Allergy (Verified 02/15/25 14:16) Rash Penicillins Allergy (Verified 02/15/25 14:16) Hives shellfish derived Allergy (Verified 02/15/25 14:16) Anaphylaxis Sulfa (Sulfonamide Antibiotics) Allergy (Verified 02/15/25 14:16) Upset Stomach tiotropium (From Spiriva with HandiHaler) Allergy (Verified 02/15/25 14:16) Other ketamine Adverse Reaction (Verified 02/15/25 14:16) hallucinations Medications ?Medication ?Instructions ?Recorded ?Confirmed ?Type acetaminophen 325 mg tablet 650 mg PO QHS pain 7 03/31/25 History baclofen 10 mg tablet 5 mg PO BID muscle relaxer 0 11/17/16 03/31/25 History cyanocobalamin (vitamin B-12) 1,000 mcg PO DAILY vitam in 11/17/16 03/31/25 History 1,000 mcg tablet multivitamin 1 tab PO DAILY vitamin 11/1709/21/24 History paroxetine HCl 10 mg tablet 40 mg PO DAILY mental heal th 11/17/16 09/21/24 History polyethylene glycol 3350 17 gram 17 gm PO DAILY consti pation 05/27/17 09/21/24 History oral powder packet aspirin 81 mg tablet,delayed 81 mg PO DAILY@0800 heart health 11/27/17 03/31/25 History release lamotrigine 25 mg tablet,extended 25 mg PO DAILY 11/2709/21/24 History release 24 hr loratadine 10 mg tablet (Claritin) 10 mg PO DAILY therese rgies 12/27/20 09/21/24 History albuterol sulfate 2.5 mg/3 mL 2.5 mg inhalation Q4H AR N Sob &/Or 01/10/21 0 03/31/25 History (0.083 %) solution for nebulization Wheezing brimonidine 0.2 %-timolol 0.5 % 1 drp ophthalmic (eye) BID eye 01/10/21 03/31/25 History eye drops (Combigan) health ketotifen fumarate 0.025 % (0.035 1 drp ophthalmic (ey e) BID eye 01/10/21 03/31/25 History %) eye drops health latanoprost 0.005 % eye drops, 1 drp ophthalmic (eye) QPM eye 01/10/21 03/31/25 History emulsion health lorazepam 1 mg tablet 2 mg PO QHS anxiety 01/10/21 09/21/24 History pantoprazole 20 mg tablet,delayed 40 mg PO DAILY reflu x 01/10/21 09/21/24 History release vibegron 75 mg tablet (Gemtesa) 75 mg PO DAILY 1 09/21/24 History albuterol sulfate 90 mcg/actuation 1 - 2 puff inhalati on Q4H PRN PRN 02/11/22 03/31/25 Rx aerosol inhaler Shortness Of Breath #18 gram s ascorbic acid (vitamin C) 250 mg 250 mg PO BID 2 03/31/25 History tablet lactobacillus combination no.9 4 4,000 mmu cells PO DA BUTCH 08/19/22 03/31/25 History billion cell capsule (Adult 50 Plus Probiotic) ergocalciferol (vitamin D2) 1,250 50,000 unit PO QMONT H vitamin 09/10/22 03/31/25 History mcg (50,000 unit) capsule conjugated estrogens 0.625 mg/gram 0.625 mg vaginal .3 xweek 02/11/24 03/31/25 History vaginal cream levothyroxine 88 mcg tablet 88 mcg PO .COMPLEX thyroid 07/01/24 03/31/25 History hydrocodone-acetaminophen 5-325mg 1 tab PO Q6H PRN PRN Pain 3 days 08/08/24 09/21/24 Rx 5mg-325mg #10 TABLETS fluticasone furoate 100 1 inh inhalation DAILY #60 e a 08/22/24 03/31/25 Rx mcg-vilanterol 25 mcg/dose inhalation powder (Breo Ellipta) meloxicam 15 mg tablet 15 mg PO DAILY 09/21/2409/07 History furosemide 20 mg tablet 20 mg PO QAM #90 tabs 03/31/25 Rx lisinopril 20 mg tablet 20 mg PO DAILY blood pressur e #90 03/31/25 03/31/25 Rx tabs Ejection fraction %: 67 Have you fallen in the past year?: Yes COUNT INCLUDES THE [facility] Medical History Presence of cardiac pacemaker (~05/29/21) Chronotropic incompetence with sinus node dysfunction Sick sinus syndrome Sinus bradycardia Retinal detachment Essential hypertension GERD (gastroesophageal reflux disease) Acute respiratory failure with hypoxia PND (post-nasal drip) History of non-ST elevation myocardial infarction (NSTEMI) Pulmonary nodule Cough Dizziness Bronchiectasis Thrush, oral Dyspnea Chest pain Asthma exacerbation Bilateral SubmassivePE Hypothyroidism Asthmatic bronchitis , chronic Surgical History History of tonsillectomy History of cholecystectomy History of bronchoscopy History of cataract extraction History of hysterectomy History of bladder suspension procedure Family History Mother Breast cancer Colon cancer Father Cancer Lung Grandmother Breast cancer CVA (cerebral vascular accident) Social History Smoking Status: Former smoker Tobacco: How many years used: 10 second hand exposure: No alcohol intake: current details: occasional substance use type: does not use caffeine: Yes Type: coffee what type of physical activity do you participate in: other seatbelt use: always do you feel safe at home: Yes ROS Const Const: Positive for fatigue; Negative for weakness, headache(s), daytime sleepiness or difficulty sleeping ENT ENT: Positive for balance problems; Negative for headache(s), dizziness or Nosebleed/epistaxis Cardio Chest Pain: No Palpitations: No Edema: None Resp Respiratory: Positive for SOB with activity; Negative for SOB at rest, SOB orthopnea\SOB lying down or Cough GI GI: Negative nausea, vomiting or heartburn Musc Musc: Positive for muscle aches/ myalgia, muscle weakness and balance problems Neuro Neuro: Negative for dizziness, lightheadedness, near syncope, headache(s) or weakness Endo Endo: Positive for fatigue Cardiology Exam Const Appearance: cooperative, comfortable, no acute distress, well developed and frail appearing Nutritional Appearance: average body habitus Orientation: alert, awake and oriented x3 In WC Head Head: normal to inspection Ears: hearing grossly normal bilaterally Nose: external nose normal Face and Sinus: face symmetric Eyes General: appearance normal, both eyes and all related structures Eyelids: eyelids normal Conjunctivae: conjunctivae normal Pupils: PERRL and other (abnormal left pupil from surgery) EOM: EOM intact bilaterally Neck Neck: normal visual inspection and trachea midline; Negative no JVD Carotids: Negative bruit Chest Chest inspection: normal inspection of the chest and Pacemaker/ICD Yes left pectoral incision Auscultation: Bilateral: Inspiratory Wheezes Cardio Palpation: normal PMI Rate: regular rate Rhythm: regular rhythm Heart sounds: S1 normal and S2 normal; Negative rub, gallop or murmur GI GI: normal to inspection Neuro General: patient alert, patient awake, patient oriented x3 and CN's II-XI intactbilaterally Skin Skin: no rashes or lesions noted Extremities Pulses: Normal: Right Posterior Tibial Pulse, Left Posterior Tibial Pulse, RightRadial Pulse and Left Radial Pulse Lower Extremity Edema: None: Bilateral Psych Psychological: normal affect Supplemental Info Supplemental Information Echocardiogram 05/26/24 ([facility]) Conclusion The left ventricle is normal in size. Left ventricular systolic function is normal . EF=67%. Grade I left ventricular diastolic dysfunction. The right ventricle is normal in size. Right ventricular systolic function is normal. Estimated right ventricular systolic pressure is 37mmHg consistent with mild pulmonary hypertension. There is moderate (2+) tricuspid valve regurgitation. Exam was compared with the prior echocardiographic exam performed on 10/03/23.Previously reported to have 1-2+ tricupsid regurgitation abd RVSP of 35mmHg. Echocardiogram 10/03/23 ([facility]) Impression The left ventricle is normal in size. Left ventricular systolic function is normal. EF=61 + 5%. Normal left ventricular diastolic function. The right ventricle is normal in size. Right ventricular systolic function is normal. Pacer is seen on the right side. Pharmacologic myocardial perfusion stress test. 03/2025 Conclusion: Normal pharmacologic myocardial perfusion stress test. Preserved ejection fraction. Stress Test Report 01-22-2021 Impression: 1. Rest and stress SPECT Cardiolite nuclear imaging demonstrate relative uniform tracer uptake and myocardial perfusion appearing within normal limits. 2. The gated Cardiolite study reports an LVEF of 77%. Carotid Duplex 02/26/2024: Irregular plaque at the proximal right internal carotid artery with tortuosity of the right internal carotid artery noted but less than 50% stenosis. Less than 50% stenosis right external carotid artery Intimal thickening at the proximal left internal carotid artery with less than 50% stenosis Less than 50% stenosis left external carotid artery Patent antegrade vertebral arteries bilaterally Labs: No Data to Display Diagnostics: Electrocardiogram Stress Test Stress Test Nuclear Medicine Chest X-Ray Pulmonary: No Data to Display Past Visits: Cardiology Visit 03/31/25 Assessment and Plan Assessment and Plan (1) Chronotropic incompetence with sinus node dysfunction: Status: Acute Plan: Patient has a history of chronotropic incompetence with sinus node dysfunction. She has undergone [facility] EP evaluation in the past, which led to a permanent pacemaker. (2) Presence of cardiac pacemaker: Status: Acute Plan: Pacemaker is functioning appropriately. Pt will continue with regular scheduledpacemaker interrogations. (3) Essential hypertension: Status: Acute Plan: BP is on the low side. Will decrease lisinopril to 20 mg a day and decrease lasix to 20 mg a day. Medications: Changed From furosemide 40 mg PO QAM 90 tabs 3RF To furosemide 20 mg PO QAM 90 tabs 3RF From lisinopril 20 mg PO DAILY blood pressure To lisinopril 20 mg PO DAILY 90 tabs 3RF blood pressure Patient Instructions: Your BP is low. This may contribute to your fall. Decrease your lisinopril to 20 mg a day and decrease your lasix to 20 mg a day. Monitor your Bp readings. I would like to to be around 120. Call us in a few weeks with an update. Plan Details Additional Comments: Thank you for allowing me to participate in the care of your patient. Please don't hesitate to call if any issues arise. This note was generated using a voice recognition system and there may be incorrect words, spelling, or punctuation that were not noted when reviewing theoffice note prior to saving. Portions of this documentation were copied and pasted from previous office visitnotes to provide a cohesive continuity of the history. The note has been reviewed, edited, and updated, as necessary. Follow Up: 3 Months (3-4 months MMM) Coding Level of Care Code Off vis,est,level 4 Diagnoses Chronotropic incompetence with sinus node dysfunction I49.5 Presence of cardiac pacemaker Z95.0 Essential hypertension I10 Coding Level of Care Code Off vis,est,level 4 Diagnoses Chronotropic incompetence with sinus node dysfunction I49.5 Presence of cardiac pacemaker Z95.0 Essential hypertension I10 Clinical Quality Measures Falls Risk Screening/Assistive Devices Have you fallen in the past year?: Yes Cardiac Ejection fraction %: 67 03/31/25 1349 <Electronically signed by Latonya Hernandez> Date _ Latonya STEVE Cosigner Signature: Date (if applicable) CC: ~ [facility] Work Phone: [phone] Telephone encounter Note* Telephone Encounter - Kassidy Peña RN - 03/29/2025 11:14 AM EDT Patient calls and notified of results and providers instructions. Patient verbalizes understanding and will follow up with PCP if needed. Kassidy Peña RN [facility] [facility] Misc[facility] Notes* Telephone Encounter - Kassidy Peña RN - 03/29/2025 11:14 AM EDT Patient calls and notified of results and providers instructions. Patient verbalizes understanding and will follow up with PCP if needed. Kassidy Peña RN * Telephone Encounter - Barbara Pereira LPN - 03/29/2025 8:57 AM EDT Left message for patient to return call for results.Barbara Pereira LPN * Telephone Encounter - Jorge Jordan APRN.CNP - 03/28/2025 6:13 PM EDT Please call patient let her know that her chest x-ray was negative. Patient should do supportive therapies. If symptoms get worse not better please follow- up with primary care. [facility] Telephone encounter Note * Telephone Encounter - Barbara Pereira LPN - 03/29/2025 8:57 AM EDT Left message for patient to return call for results.Barbara Pereira LPN [facility]07-22-2025 Telephone encounter Note* Telephone Encounter - Jorge Jordan APRN.BERTHA - 03/28/2025 6:13 PM EDT Please call patient let her know that her chest x-ray was negative. Patient should do supportive therapies. If symptoms get worse not better please follow- up with primary care. [facility] Work Phone: [phone] [facility] History of Present illness Narrative* Jorge Jordan APRN.BERTHA - 03/28/2025 6:12 PM EDT [facility] Rodriguez Geoffrey Nassar is a 89 year old female. Patient presents with: Cough: Cough, fever LIGHT and sweating x 3 days HPI Fever, Cough, Headache, and Diaphoresis: - Symptoms x3 days. - Associated dyspnea on exertion. - Denies abdominal pain. - History of recurrent pneumonia; current symptoms feel similar to previous episodes. Review of Systems Constitutional: (+) fever, (+) diaphoresis Head: (+) headache Respiratory: (+) cough, (+) exertional dyspnea Gastrointestinal: (+) abdominal pain Objective BP 122/78 Pulse 60 Temp 36.3 C (97.4 F) (Tympanic) Resp 18 Wt 70.3 kg (154 lb 15.7 oz) SpO2 95% BMI 27.36 kg/m Physical Exam General: No acute distress. HEENT: Tympanic membranes clear bilaterally; oropharynx without erythema or swelling; no cervical lymphadenopathy. CV: Heart sounds normal. Resp: Bilateral wheezing in lower lung mcgee. { 1. Acute cough (R05.1) - Symptoms include fever, cough, headache, diaphoresis, and dyspnea on exertion for approximately 3days. - Auscultation reveals wheezing in both lower lobes. - Ordered chest X-ray to evaluate for possible pneumonia. - Throat examination shows no swelling or erythema; no lymphadenopathy noted. - Recommended supportive therapy. - Advised follow-up with primary care if symptoms worsen. and Recording using ambient [employer] software for draft documentation of the visit was discussed with the patient/authorized healthcare representative; all questions welcomed and answered. Patient/authorized healthcare representative agreed to proceed MDM Procedures [facility]Cl[facility] History of Present illness Narrative* Zahra Palacios RT(R) - 03/28/2025 5:10 PM EDT Radiology Service Progress Note PATIENT NAME: Geoffrey Nassar DATE OF SERVICE: March 28, 2025 TIME: 5:04 PM PATIENT IDENTITY VERIFICATION COMPLETED USING TWO (2) IDENTIFIERS: Name and Date of confirmedby patient verbally. FALL SCREENING: Has the patient had 2 falls in the last year or 1 fall with injury or currently using an Ambulatory Assistive Device (Walker, Cane, Wheelchair, Crutches, etc.)? No PATIENT GENDER DATA: Assigned female at . status: : No status:NO. PATIENT RELEVANT IMPLANT DATA REVIEWED: Yes PATIENT PRESENTS WITH AN IMPLANTABLE OR ATTACHED LITERATURE TEACHER: No RADIOLOGY DEPARTMENT: General X-ray: Exam(s) Completed: Chest X-Ray PERIPHERAL IV DATA: Not applicable SIGNED BY: RT Dameon(R) March 28, 2025 5:04 PM documented in this encounterCl[facility]07-[facility]-2025 [facility]07-[facility]-2025 Telephone encounter Note* Telephone Encounter - José Miguel Choudhury RN - 03/28/2025 2:54 PM EDT Esther- [facility] reports she is with pt, and pt presents with fever 99.4, non productive loose cough, wheeze in posterior lobes, sweats day and night. BP 118/62 (60) 96% on RA. No s/s UTI. Offered appt in pcp office tomorrow. Pt declined, would like to be seen today. Pt agreeable to for evaluation. [facility]07-22-2025 Miscellaneous Notes* Telephone Encounter - José Miguel Choudhury RN - 03/28/2025 2:54 PM EDT [facility] reports she is with pt, and pt presents with fever 99.4, non productive loose cough, wheeze in posterior lobes, sweats day and night. BP 118/62 (60) 96% on RA. No s/s UTI. Offered appt in pcp office tomorrow. Pt declined, would like to be seen today. Pt agreeable to for evaluation. documented in [facility] encounterCl[facility]07-17-2025 Instructions* Patient Instructions* Dian Rodas MD - 03/23/2025 1:58 PM EDT Based on your prior test results, penicillin were negative. You are at low risk for a severe, immediate allergic or anaphylactic reaction to penicillin and other penicillin-type antibiotics. Skin tests are unreliable for predicting delayed reactions. documented in this encounterClerm[facility]07-17-2025 [facility]Prem[facility]07-[facility]-2025 History of Present illness Narrative* Pat Snow MA - 03/23/2025 1:16 PM EDT Patient is here today for a penicillin allergy- allergy testing. Mother was allergic to penicillin.Patient acquired the penicillin allergy back in . She took the pill and within a half hour she started noticing a rash on her neck and chest area. No ER visit, but it did subside. Is here to get confirmation with allergy testing that she is still allergic to it. * Dian Rodas MD - 03/23/2025 1:04 PM EDT ASSESSMENT/PLAN: - Remote history of penicillin allergy: Allergy skin tests completed to penicillin and Pre-Pen at a prior visit were negative. Patient tooka test dose of penicillin in the office and tolerated this without adverse reaction.The patient is at low risk for a severe, immediate, IgE-mediated reaction to penicillin, amoxicillin and other penicillin-type antibiotics. Skin tests and oral challenges are unreliable for predicting delayed reactions. - Allergic rhinitis (cats, dust mites) Aggressive environmental controls Continue loratadine 10 mg once daily as needed - Persistent asthma Continue Breo Ellipta 100-25 1 inhalation once daily Continue albuterol 2 puffs every 4 hours as needed Continue to follow-up with pulmonary medicine -History of adverse reaction to shellfish Patient declined further evaluation for possible shellfish allergy at today's visit -History of skin rash associated with use of Benadryl: Discussed the low likelihood of IgE-mediated allergy to diphenhydramine. Patient declined a nonstandardized percutaneous test to diphenhydramine at today's visit. As a precaution, continue to avoid use of Benadryl, however, she may take other antihistamines including loratadine, cetirizine and fexofenadine as tolerated - Discussed medication dosage, usage, side effects, and goals of treatment in detail. - Follow-up in PRN - patient will return sooner should new symptoms or problems arise. Dian Roads MD Allergy & Immunology This is a consultation requested by Ken Contreras MD for an allergy and immunology evaluation.My final recommendations will be communicated back to the requesting healthcare provider(s) by way of shared medical record or via U.[place]. mail. Geoffrey Nassar is a 89 year old female who presents for further evaluation of possible allergy to penicillin type antibiotics. She was actually seen in this office in 2003. At that time, allergy skintests were positive to cats and dust mites. Allergy skin tests to shellfish were negative. Allergy skin tests to penicillin and Pre-Pen were negative on both percutaneous and intradermal tests. Patient took a test dose of penicillin and tolerated this without adverse reaction. Patient denies takingpenicillin antibiotics subsequent to that visit. Endorses a history of pruritic skin rash on her neck and chest associated with use of a penicillin antibiotic in the . She does not recall any additional symptoms such as angioedema, respiratory distress, lightheadedness, loss of consciousness, bullous lesions, mucous membrane involvement, exfoliation, target lesions, joint pain/swelling and fevers. Complaining of itching without skin rash associated with use of ciprofloxacin. She subsequently hastaken levofloxacin and tolerated this without adverse reaction. Complains of gastrointestinal upset only associated with use of sulfa antibiotics. She reports a history of developing a skin rash associated with use of oral Benadryl. Several yearsago, she was taking Benadryl as a sleep aid and developed an itchy rash on her back. She inadvertently subsequently took Tylenol or Advil PM and developed a recurrence of the rash. She has subsequently taken Claritin which she has tolerated without adverse reaction. Takes loratadine as needed for nasal symptoms with adequate relief. History of asthma for which she sees Dr. Miller in pulmonary medicine. Uses Breo Ellipta 100-25 daily and albuterol as needed. Takes Protonix daily with good control of her GERD symptoms. Patient endorses a history of swelling involving the throat associated with shellfish ingestion. She declines the completion of repeat allergy skin tests and/or laboratory evaluation for shellfish allergy at this time as she is not interested in the possibility of reintroducing these foods into herdiet. REVIEW OF SYSTEMS: All other review of systems negative except for those listed above. PAST MEDICAL HISTORY Diagnosis Date Allergic conjunctivitis of both eyes 10/08/2021 Asthmatic bronchitis , chronic (HCC) 01/30/2023 Bradycardia 01/18/2021 Bronchiectasis without complication (HCC) 11/27/2009 Dr. Jaswant Miller, pulmonary. 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 Pulmonary nodule 01/08/2017 Punctate keratitis, bilateral 10/08/2021 SAH (subarachnoid hemorrhage) ([facility]) 10/03/2023 Subarachnoid hemorrhage ([facility]) 10/03/2023 Tubular adenoma of colon 12/29/2017 MEDICATIONS: LORazepam (ATIVAN) 2 mg tab Take 1 tablet by mouth daily at bedtime for 90 days. buPROPion XL (WELLBUTRIN XL) 300 mg 24 hr tablet Take 1 tablet by mouth once daily. meloxicam (MOBIC) 15 mg tablet Take 1 [...] Breath. MULTIVITAMIN TAB Take one(1) tablet daily. ALLERGIES: Allergies As of Date: 03/23/2025 Allergen Noted Reaction SHELLFISH CONTAINING PRODUCTS 11/27/2016 Unknown PENICILLAMINE 11/27/2016 Unknown BENADRYL [DIPHENHYDRAMINE HCL] 10/05/2017 Rash CATS 12/19/2005 CIPRO [CIPROFLOXACIN] 03/17/2005 Itching DUST 12/19/2005 KETAMINE 04/07/2019 Unknown MOLD 08/06/2006 PENICILLINS 03/17/2005 Rash SHELLFISH 03/17/2005 Shortness of Breath SPIRIVA WITH HANDIHALER [TIOTROPI*04/13/2008 Intolerance SULFA (SULFONAMIDE ANTIBIOTICS) 12/15/2011 GI Upset SYMBICORT [BUDESONIDE-FORMOTEROL] 11/27/2009 Intolerance TETANUS TOXOID ADSORBED 10/14/2007 Intolerance Fully Assessed 03/02/2025 PAST SURGICAL HISTORY Procedure Laterality Date CHOLECYSTECTOMY [...] oophorectomy VITRECTOMY MECHANICAL PARS PLANA Left FAMILY HISTORY: Allergic rhinitis:no. Asthma: no. Eczema: no. Cystic fibrosis: no. Immunodeficiency: no. SOCIAL HISTORY: Employer And Job Title: [employer] (No job title specified) Years Of Education Completed: Not specified Marital Status: with 2 children Social History Tobacco Use Smoking status: Former Packs/day: 0.00 Years: 0.5 packs/day for 10.0 years (5.0 ttl pk-yrs) Types: Cigarettes Start date: 05/14/1955 Quit date: 05/14/1965 Years since quittin.8 Passive exposure: Past Smokeless tobacco: Never ENVIRONMENTAL HISTORY: Lives in a house Age of home: 23 years Heating: gas Woodburning fireplace in the home: no Air conditioning: Central air Basement: Dry basement, Carpeted Mario: Dfhy-zc-iudo carpeting Dust mite controls: Dust mite controls are not in place. Pets in the home: There are no pets in the home Outdoor animals: There are no outdoor animals Tobacco smoke: No exposure in the home. Physical Exam: GENERAL APPEARANCE:Well appearing, alert, in no acute distress, well-hydrated, well nourished. EXTREMITIES:Extremities normal, No deformities, No skin discoloration, and No edema SKIN: Skin color, texture, turgor normal. No rashes or lesions. documented in this encounterCl[facility]07-17-2025 NotePrem[facility]07-11-2025 Telephone encounter Note* Telephone Encounter - Kassidy Peña RN - 03/17/2025 2:37 PM EDT Esther with [facility] calls to report patient takes the dulcolax every day and still has some trouble with constipation. Asking for further direction. Patient has an order for Miralax 17 grams daily as needed. Notified Esther patient could try that. [employer] that she doesn't want to take it every day but would try to get her to take every third dayas there are times when she goes an entire week without having a BM. Esther aware that if patient has further concerns after trying the Miralax to have her give us a call back. Kassidy Peña RN [facility]07-11-2025 Miscellaneous Notes* Telephone Encounter - Kassidy Peña RN - 03/17/2025 2:37 PM EDT Esther with [facility] calls to report patient takes the dulcolax every day and still has some trouble with constipation. Asking for further direction. Patient has an order for Miralax 17 grams daily as needed. Notified Esther patient could try that. [employer] that she doesn't want to take it every day but would try to get her to take every third dayas there are times when she goes an entire week without having a BM. Esther aware that if patient has further concerns after trying the Miralax to have her give us a call back. Kassidy Peña RN documented in this encounterClerm[facility]06-30-2025 Telephone encounter Note * Telephone Encounter - Ashely Kahn MA - 03/06/2025 12:51 PM EDT Patient has been identified by [...] Please advise. Thank you. Ashely Kahn MA. [facility]06-30-2025 Miscellaneous Notes* Telephone Encounter - Ashely Kahn MA - 03/06/2025 12:51 PM EDT Patient has been identified by [...] you. Ashely Kahn MA. documented in this encounterClermont [facility] Hospital06-26-2025 Instructions* Patient Instructions* Ken Contreras MD - 03/02/2025 12:20 PM EDT Therapy/Counseling [facility] [address] [place] [address] [facility] [address] [place] [address] [employer] [address] [address] [facility] [address] [place] [address] [facility] [address] [place] [address] [facility] [address], [place] [address] [employer] [address] [place] [address] [place] [address] documented in this encounterClermont [facility] Hospital06-26-2025 NotePrem[facility]06-26-2025 History of Present illness Narrative* Ken Contreras MD - 03/02/2025 11:46 AM EDT This note was created using [employer]. Subjective Patient presents with: 4 week follow-up Geoffrey Nassar is a 89 year old female. Recording using [employer] software for draft documentation of the visit was discussed with the patient/authorized healthcare representative; all questions welcomed and answered. Patient/authorized healthcare representative agreed to proceed Depression: - Currently [...] started treatment. - Enjoys physical therapy at [facility] and plans to inquire about dry needling there. - Missed two weeks of physical therapy sessions recently. Dyspnea: - Relative stable. - Stress test I ordered at [facility] is scheduled next week. - Seeing the [...] Unspecified Whether Stage 3a Or 3b Ckd ([facility]) Physical Debility Oxygen Desaturation Social History Tobacco [...] ICD10: M25.552 Chronic. - See PT at [facility]. Call for orders of dry needling if needed. 3. MARTINES (dyspnea on exertion) - ICD9: 786.09, ICD10: R06.09 - Stress test next week at [facility]. 4. Contusion of left side of [...] - Attend your physical therapy sessions at [facility] for bursitis treatment and dry needling; [...] mood. Ken Contreras MD documented in this encounterClermont County Hospital06-11-2025 Discharge summary [facility] Medical Records Department [address] [place] [address] Emergency Department Summary 02/15/25 MR#: [id number] Acct: [id number] Name: GEOFFREY NASSAR Rep #:[id number] : 1935 89 From: Av Valencia MD PCP: Dr. Ken Contreras MD Status:R [...] Has history of asthma, hypothyroidism, non-ST elevation [place], GERD, and essential hypertension. She alsohas history of pacemaker placement 2020. Patient statesshe tripped over her feet. She fell into the refrigerator. She hit the left side of her head. She presents today because of persistent headache since injury. Neck pain and low back pain. She has not t aken anything for it. She was asked if [...] similar symptoms: No Recent Illness/Hospitalization: No PFSH PFS Medical History Presence of cardiac pacemaker (~05/29/21) [...] tablet 650 mg PO QHS pain 7 11/16/16 History baclofen 10 mg tablet 5 [...] 2.5 mg/3 mL 2.5 mg inhalation Q4H AR N Sob &/Or 01/10/21 05/29/21 History (0.083 [...] to inspection, nondistended, normoactive bowel sounds, non-tender, non- distended and no masses Palpation: soft Back/Spine normal [...] 15:26 IMPRESSION: NO ACUTE FINDINGS Reading Location: [id number] Cervical Spine CT 02/15/25 15:26 IMPRESSION: No acute cervical spine fracture. Spondylosis. Spondylolisthesis. Reading Location: [id number] Lumbar Spine X-Ray 02/15/25 16:40 IMPRESSION: No acute osseous abnormality. Spondylosis. Spondylolisthesis. Scoliosis. Reading Location: [id number] CT of the head without contrast and [...] will make your pain worse. Print Language: Thai Disposition Disposition: Home, Self Care What to do if you have Problems For any increased pain, shortness of breath, bleeding, nausea or vomiting, chestpain, or any unexpected problems, contact your Primary Care Provider. Call [facility] ([phone]) or report tothe closest Emergency Room. Call 911 if necessary. 02/15/25 1737 Cosigner Signature (if applicable): CC: Dr. Ken Contreras MD ~ Signed [facility]06-11-2025 Radiology Diagnostic study note [facility] Imaging Services [address] [place], [place] [address] Lumbar Spine 2 or 3 Views MR#: [id number] Acct: [id number] Name: GEOFFREY NASSAR Rep #: [id number] : 1935 F 89 From: Enrique De Leon MD PCP: Dr. Ken Contreras MD Status: R EG ER Study:Lumbar Spine 2 or 3 Views Date of Exam: 02/15/25 Exam# [id number] Ordering Dr: Jamshid Valencia MD PROCEDURE: LUMBAR [...] osseous abnormality. Spondylosis. Spondylolisthesis. Scoliosis. Reading Location: [id number] CC: Dr. Av Valencia MD; Dr. Ken Contreras MD ~ Renewals Specialist: Signed [facility]06-11-2025 Radiology Diagnostic study note [facility] Imaging Services [address] [place], [place] [address] Spine Cervical without Contras MR#: [id number] Acct: [id number] Name: GEOFFREY NASSAR Rep #: [id number] 2 : 1935 F 89 From: Enrique De Leon MD PCP: Dr. Ken Contreras MD Status: R ER Study:Spine Cervical without Contras Date of Exam: 02/15/25 Exam# [id number] Ordering Dr: Jamshid Valencia MD PROCEDURE: SPINE [...] cervical spine fracture. Spondylosis. Spondylolisthesis. Reading Location: [id number] CC: Dr. Av Valencia MD; Dr. Ken Contreras MD ~ Renewals Specialist: Signed [facility]06-11-2025 Radiology Diagnostic study note [facility] Imaging Services [address] [place] [address] Brain/Head without Contrast MR#: [id number] Acct: [id number] Name: GEOFFREY NASSAR Rep #: [id number] : 1935 F 89 From: Enrique De Leon MD PCP: Dr. Ken Contreras MD Status: R EG ER Study:Brain/Head without Contrast Date of Exa m: 02/15/25 Exam# [id number] Ordering Dr: Jamshid Valencia MD PROCEDURE: BRAIN/HEAD [...] or infarction. No extra-axial blood or fluid collections.The paranasal sinuses and mastoid air cells are well aerated. The calvarial vault and skull base are intact. CT/Brain/Head without Contrast IMPRESSION: NO ACUTE FINDINGS Reading Location: [id number] CC: Dr. Av Valencia MD; Dr. Ken Contreras MD ~ Renewals Specialist: Signed [facility]06-11-2025 Discharge summary Author Av Valencia [facility] Note Date/Time February 15, 2025 5:37 pm [facility] Medical Records Department [address] [place] [address] Emergency Department Summary 02/15/25 MR#: [id number] Acct: [id number] Name: GEOFFREY NASSAR Rep #:[id number] : 1935 89 From: Av Valencia MD PCP: Dr. Ken Contreras MD Status:R [...] Has history of asthma, hypothyroidism, non-ST elevation WI, GERD, and essential hypertension. She alsohas history [...] similar symptoms: No Recent Illness/Hospitalization: No PFSH PFSH Medical History Presence of cardiac pacemaker (~05/29/21) [...] tablet 650 mg PO QHS pain 7 11/16/16 History baclofen 10 mg tablet 5 [...] 2.5 mg/3 mL 2.5 mg inhalation Q4H AR N Sob &/Or 01/10/21 05/29/21 History (0.083 [...] 15:26 IMPRESSION: NO ACUTE FINDINGS Reading Location: [id number] Cervical Spine CT 02/15/25 15:26 IMPRESSION: No acute cervical spine fracture. Spondylosis. Spondylolisthesis. Reading Location: [id number] Lumbar Spine X-Ray 02/15/25 16:40 IMPRESSION: No acute osseous abnormality. Spondylosis. Spondylolisthesis. Scoliosis. Reading Location: [id number] CT of the head without contrast and [...] will make your pain worse. Print Language: Thai Disposition Disposition: Home, Self Care What to do if you have Problems For any increased pain, shortness of breath, bleeding, nausea or vomiting, chestpain, or any unexpected problems, contact your Primary Care Provider. Call [facility] ([phone]) or report to the closest Emergency Room. Call 911 if necessary. 02/15/25 1737 <Electronically signed by Av Valencia MD> Cosigner Signature (if applicable): CC: Dr. Ken Contreras MD ~ Signed [facility] Work Phone: 1(887) 934-901606-11-2025 Telephone encounter Note* Telephone Encounter - Kassidy Peña RN - 02/15/2025 11:49 AM EDT Esther with [facility] calls with patient to report patient fell [...] Initial Assessment Questions 1. MECHANISM: Esther with [facility] is currently visiting patient and calls to [...] No neck pain, vomiting) Protocols used: Head [id number] [facility]06-11-2025 Miscellaneous Notes* Telephone Encounter - Kassidy Peña RN - 02/15/2025 11:49 AM EDT Esther with [facility] calls with patient to report patient fell [...] - Initial Assessment Questions 1. MECHANISM: Esther rod [facility] is currently visiting patient and calls to [...] No neck pain, vomiting) Protocols used: Head [id number] documented in this encounterClermont County Hospital06-11-2025 Hospital Discharge instructions Additional Instructions 1. Expect to feel worse over the next 24 to 48 hours. 2. Do not be surprised if you have heard in more places than you presently do over the next day or 2 3. You will hurt for 3 to 7 days 4. Apply ice to areas of discomfort. Application heat will make your pain worse. [facility] Work Phone: [phone]) 851-334906-02-2025 Telephone encounter Note* Telephone Encounter - Adelaida Almendarez LPN - 02/06/2025 10:17 AM EDT [facility] Scheduling dept calling asking for another copy of the Nuclear stress test order to be faxed [phone]. She said need part where electronically signed it had been cut off. Printed order andfaxed as requested again. [facility]06-02-2025 Miscellaneous Notes* Telephone Encounter - Adelaida Almendarez LPN - 02/06/2025 10:17 AM EDT [facility] Scheduling dept calling asking for another copy of the Nuclear stress test order to be faxed [phone]. She said need part where electronically signed it had been cut off. Printed order andfaxed as requested again. documented in this encounterClermont [facility] Hospital05-30-2025 Telephone encounter Note * Telephone Encounter - Yessenia Perez LPN - 02/03/2025 11:25 AM EDT Patient is approved, no auth required. For stress test at [facility]. Faxed to [facility] to arranged. [facility]05-30-2025 Miscellaneous Notes* Telephone Encounter - Yessenia Perez LPN - 02/03/2025 11:25 AM EDT Patient is approved, no auth required. For stress test at [facility]. Faxed to [facility] to arranged. * Telephone Encounter - Yessenia Perez LPN - 02/03/2025 9:38 AM EDT 1.Faxed order to [facility] [employer] for dry needing. 2.Referral/precert for the stress test entered. Pending review. documented in this encounterClermont [facility] Hospital05-30-2025 Telephone encounter Note * Telephone Encounter - Luz Harden RN - 02/03/2025 11:01 AM EDT Esther nurse with [facility] calling in stating they work with pt. (see 08/12/24 note). She is requesting pt's OV note with Dr. Contreras from yesterday and the one from Dr. Mars from 01/25. Esther made aware of problems with outgoing calls and faxes and will make sure fax goes through but may not be til next week. Fax # is [phone]. [facility]05-30-2025 Miscellaneous Notes* Telephone Encounter - Luz Harden RN - 02/03/2025 11:01 AM EDT Esther nurse with [facility] calling in stating they work with pt. (see 08/12/24 note). She is requesting pt's OV note with Dr. Contreras from yesterday and the one from Dr. Mars from 01/25. Esther made aware of problems with outgoing calls and faxes and will make sure fax goes through but may not be til next week. Fax # is [phone]. documented in this encounterClermont County Hospital05-30-2025 Telephone encounter Note * Telephone Encounter - Yessenia Perez LPN - 02/03/2025 9:38 AM EDT 1.Faxed order to [facility] [employer] for dry needing. 2.Referral/precert for the stress test entered. Pending review. [facility]05-29-2025 Instructions* Patient Instructions* Ken Contreras MD - [...] to schedule the test. documented in this encounterClermont County Hospital05-29-2025 NotePremier Health [facility]05-29-2025 History of Present illness Narrative* Ken Contreras MD - 02/02/2025 3:59 PM EDT This note was created using [employer]ice[employer]. Subjective Patient presents with: Depression Hip Pain Shortness of Breath Geoffrey Nassar is a 89 year old female. Recording using Plug.dj software for draft documentationof the visit was discussed with the patient/authorized healthcare representative; all questions welcomed and answered. Patient/authorized healthcare representative agreed to proceed Depression: - Started Wellbutrin 4 weeks ago; experiencing dry mouth, left-sided throat discomfort, and dysphagia. - Symptoms improved, but dry mouth persists; using Biotene mouthwash for relief. - No improvement in energy levels or mood; ongoing fatigue. Left Hip Pain: - Received Kenalog and lidocaine injection from Dr. Mars; relief lasted about a month. - Informed by MULTILITH OPERATOR that another injection cannot be administered [...] by mouth once daily. Prescribed by Dr. Wyneski brimonidine-timolol (COMBIGAN) 0.2-0.5 % ophthalmic solution Use [...] R06.09 Progressing. Pharmacologic stress test order for [facility]. [facility] - CONSULT TO NON-[facility] FACILITY Ken Contreras MD documented in this encounterClermont County Hospital05-21-2025 NotePremier [facility]05-21-2025 NotePrem[facility]05-07-2025 NotePrem[facility]05-07-2025 History of Present illness Narrative* Ailyn Bonner, IT DIRECTOR.TOY CONSULTANT - 01/11/2025 3:41 PM EDT IMPRESSION: Geoffrey [...] jaundice UE SAB EF EE WE WF Air Conditioning Manager R 5/5 5/5 5/5 5/5 5/5 5/5 [...] which included preparing to see the patient, wxlh-dq-cgyi patient care, completing clinical documentation, performing a medically appropriate examination, counseling and educating the patient/family/caregiver, ordering medications, tests, or p rocedures and communicating results to the patient/family/caregiver. LAW Kebede.TOY CONSULTANT [facility] documented in this encounterClermont County Hospital05-02-2025 NotePremier [facility]05-02-2025 History of Present illness Narrative* Najma John [...] 06, 2025 1:01 PM documented in this encounterClermont County Hospital05-01-2025 NotePrem[facility]05-01-2025 History of Present illness Narrative* Ken Contreras MD - 01/05/2025 4:41 PM EDT This note was created using Conscious Boxriter. Subjective Geoffrey Nassar is a 89 year [...] walk test here, she had to rest long term with no desaturation. Review of Systems Constitutional: [...] Unspecified Whether Stage 3a Or 3b Ckd ([facility]) Physical Debility Oxygen Desaturation Social History Tobacco [...] progressive. - I recommend she see her dental service technician sooner for consideration of stress testing. Ken [...] as PCP - General (Internal Medicine) Dia Lopez APRN.TOY CONSULTANT as [employer] Radio Technician (Internal Medicine) Ashely Miller MD (Pulmonary) Cami Mars MD (Geriatrics) Ruben Ferrara PA-C (Orthopedics) Outside specialists seen: Cardiology- Dr. Zane Mcpherson. Uro-gynecology- Dr. Christi Hansen. Cloth Spreader Screen Printing-Dr. Guzman Jolly. Assembler Dc Field Ring-Dr. Neil Hawthorne. Optometry- Dr. Janett Varela, [facility]- Dr. Jann Mello DME supplier: [employer], [employer], [place]. Medical/Family history review Reviewed and updated problem [...] Personalized prevention plan provided documented in this encounterClermont County Hospital05-01-2025 Instructions* Patient Instructions* Ken Contreras MD - [...] review all the medicines you take, even swvv-ndz-uryprgo medicines. As you get older, the way [...] have certain medical conditions. documented in this encounterClermont County Hospital05-01-2025 NotePrem[facility]04-17-2025 NotePrem[facility]04-17-2025 History of Present illness Narrative* Najma John [...] 22, 2024 12:39 PM documented in this encounterClermont County Hospital04-17-2025 Evaluation note* Diagnosis Stage 3 chronic kidney disease, unspecified whether stage 3a or 3b CKD (HCC)- Primary documented in this encounter [facility]04-14-2025 Telephone encounter Note* Telephone Encounter - Norma Wong RN - 12/19/2024 10:49 AM EDT Esther calling with [facility] requesting patient's recent OV note with Dr. Mars be faxed to her at FAX #: [phone] for continuity of care. Faxed as requested. Norma Wong RN [facility]04-14-2025 Miscellaneous Notes* Telephone Encounter - Norma Wong RN - 12/19/2024 10:49 AM EDT Esther calling with [facility] requesting patient's recent OV note with Dr. Mars be faxed to her at FAX #: [phone] for continuity of care. Faxed as requested. Norma Wong RN documented in this encounterClermont County Hospital04-11-2025 History of Present illness Narrative* Ruben Ferrara PA-C - 12/16/2024 11:00 AM EDT Images from the original note were not included. HISTORY OF PRESENT ILLNESS: Geoffrey is a 89 year old female. She is here for evaluation of Left hip pain. 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 PROCEDURE: Procedures Ruben Ferrara PA-C documented in this encounterClermont County Hospital04-11-2025 NotePremier [facility]04-09-2025 NotePrem[facility]04-09-2025 History of Present illness Narrative* Cami Mars MD - 12/14/2024 4:50 PM EDT Reason for Visit Trochanteric burisitis HPI Geoffrey is a 89-year-old female, with a history [...] her energy levels and has contacted her leaf fat scraper to discuss adjusting the oxygen settings. She [...] The patient consented to the use of ambient [employer] software for draft documentation of the visit consistent with [facility] s Notice of Privacy Practices. Cami Mars MD documented in this encounterClermont County Hospital04-08-2025 Telephone encounter Note * Telephone Encounter - Ria Mendoza LPN - 12/13/2024 4:13 PM EDT Order faxed to Alfredo Mendoza LPN [facility]04-08-2025 Miscellaneous Notes* Telephone Encounter - Ria Mendoza [...] [employer]? Ria Mendoza LPN documented in this encounterClermont County Hospital04-08-2025 Telephone encounter Note * Telephone Encounter - [...] on 2L with [employer]? Ria Mendoza LPN [facility]04-02-2025 NotePremier [facility]04-02-2025 History of Present illness Narrative* Najma John [...] RN Complete Stay upright, no falls Assessments CD Assessment Medications: Do you have any questions [...] 07, 2024 12:44 PM documented in this encounterClermont County Hospital04-01-2025 Telephone encounter Note * Telephone Encounter - [...] Pathak LPN December 06, 2024 10:15 AM [facility]04-01-2025 Miscellaneous Notes* Telephone Encounter - Cindy Pathak [...] 06, 2024 10:15 AM documented in this encounterClermont County Hospital03-28-2025 Telephone encounter Note * Telephone Encounter - Faby Meza - 12/02/2024 9:20 AM EDT Spoke with patient and scheduled. Faby Meza [facility]03-28-2025 Miscellaneous Notes* Telephone Encounter - Faby Meza [...] O2. Asking for referral. Kailey Caraballo LPN * Telephone Encounter - Pat Domínguez - 12/01/2024 3:10 PM EDT Pt called in stating she is having back and hip pain and is requesting to see . Pt stated she did not want to see Primary care team for this reason and has a friend who referred her to [facility].Please advise if willing to see patient. Thank you documented in this encounterClermont County Hospital03-27-2025 Telephone encounter Note * Telephone Encounter - Gauri Delgado MA - 12/01/2024 6:43 PM EDT Please assist patient with scheduling Dr. Mars/Geriatric schedule. 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 Asking for referral. Kailey Caraballo LPN [facility]03-27-2025 Telephone encounter Note* Telephone Encounter - Pat Domínguez - 12/01/2024 3:10 PM EDT Pt called in stating she is having back and hip pain and is requesting to see . Pt stated she did not want to see Primary care team for this reason and has a friend who referred her to [facility].Please advise if willing to see patient. Thank you [facility]03-25-2025 Telephone encounter Note* Telephone Encounter - Faby Meza - 11/29/2024 1:41 PM EDT Spoke with patient and scheduled. Faby Meza [facility]03-25-2025 Miscellaneous Notes* Telephone Encounter - Faby Meza [...] fracture. Consider orthopedic consultation. documented in this encounterClermont County Hospital03-25-2025 Telephone encounter Note * Telephone Encounter - Ken Contreras MD - 11/29/2024 9:43 AM EDT ASSESSMENT/PLAN: 1. Hip pain, left - ICD9: 719.45, ICD10: M25.552 - CONSULT TO ORTHOPAEDICS Ken Contreras MD [facility]03-25-2025 Telephone encounter Note* Telephone Encounter - Ashely Kahn MA - 11/29/2024 9:38 AM EDT Patient was notified and willing to see ortho please put consult in Ashely Kahn MA [facility]03-25-2025 Telephone encounter Note* Telephone Encounter - Ashely Kahn MA - 11/29/2024 9:37 AM EDT Images from the original note were not included. Ken Contreras MD 11/29/2024 8:57 AM EDT No fracture. Consider orthopedic consultation. [facility]03-20-2025 History of Present illness Narrative* Julia Flores [...] PATIENT PRESENTS WITH AN IMPLANTABLE OR ATTACHED LITERATURE TEACHER: No RADIOLOGY DEPARTMENT: General X-ray: Exam(s) Completed: Pelvis X-Ray: Pelvis with Hip Left PERIPHERAL IV DATA: Not applicable SIGNED BY: Christophe Nagy November 24, 2024 6:47 PM documented in this encounterClermont County Hospital03-20-2025 NotePrem[facility]03-20-2025 NotePrem[facility]03-20-2025 History of Present illness Narrative* Ken Contreras MD - 11/24/2024 6:06 PM EDT This note was created using Conscious Boxriter. Subjective Patient presents with: Pain, Back: Radiates [...] the short term and not in the intermediate designer. Risks: Possible side effects were discussed including [...] Stable. Ken Contreras MD documented in this encounterClermont County Hospital03-19-2025 NotePremier [facility]03-19-2025 History of Present illness Narrative* Najma John [...] 23, 2024 12:44 PM documented in this encounterClermont County Hospital02-24-2025 Telephone encounter Note * Telephone Encounter - [...] Please advise. Thank you. Kailey Caraballo LPN. [facility]02-24-2025 Miscellaneous Notes* Telephone Encounter - Kailey Caraballo [...] you. Kailey Caraballo LPN. documented in this encounterClermont County Hospital02-13-2025 History of Present illness Narrative* Ashely Miller MD - 10/20/2024 1:30 PM EST Images from the original note were not included. . [facility] [place] Note Patient name: Geoffrey Nassar PCP: Ken Contreras MD Referring Physician: CC: Multiple issues HPI: Geoffrey Nassar 89 year old female former remote smoker with PMH significant for obesity, asthma, depression, hypothyroidism, CAD, GERD, h/o bilateral PE 2016, h/o SAH, PPM, bronchiectasis last seen in [facility] in 2011, was following with [...] GEOFFREY NASSAR Date of Study: 05/05/2024 [facility]#: [id number] RESPIRATORY DATA: The study started at 01:06:17 [...] of recording time). In-Lab Sleep Study at [facility] in June 2.2 min 88% The difference in her home sleep apnea test and in-lab sleep apnea test may be related to Ativan usage. She normally takes Ativan at bedtime. PFT 2010: Air-trapping PFT [facility] 05/2019: FVC 2.54 L 106% FEV1 [...] diarrhea 09/23/2016 Non-STEMI (non-ST elevated myocardial infarction) ([facility]) 11/19/2016 setting of acute bilateral pulmonary embolism. Oral murray 10/29/2020 Pacemaker 07/25/2021 Pulmonary embolism with acute cor pulmonale ([facility]) 11/24/2016 She was initially thought to have a NSTEMI, but was found to be a PE with Right Strain and NOT a NSTEMI. Pulmonary nodule 01/08/2017 SAH (subarachnoid hemorrhage) ([facility]) 10/03/2023 Tubular adenoma of colon 12/29/2017 ALLERGIES [...] by last echocardiogram -On diuretics. Follows with [facility] 4. Mild intermittent asthma, uncomplicated -Symptoms controlled with current inhaled therapy -Continue Breo Ellipta with as needed albuterol I spent a total of 65 minutes on the date of the service which included preparing to see the patient, yotb-bc-nrca patient care, completing clinical documentation, obtaining and/or reviewing separately obtained history, performing a medically appropriate examination, ordering medications, tests, or procedures, and independently interpreting results (not separately reported). Ashely Miller MD [facility] [place] documented in this encounterClermont County Hospital02-13-2025 NotePremier [facility]02-04-2025 NotePrem[facility]02-04-2025 History of Present illness Narrative* Dia Lopez, IT DIRECTOR.[facility] - 10/11/2024 2:42 PM EST CC: Patient [...] her. She has tried to discusswith her leaf fat scraper per sleep medicine recommendations but he doesn't seem worried about it. Taking all medications as prescribed, denies side effects. She does not check her BP at home. Depression and anxiety are stable on Paxil, also takes Ativan at bedtime for sleep. Review of Systems See [facility] PAST MEDICAL HISTORY Diagnosis Date Bradycardia 01/18/2021 [...] diarrhea 09/23/2016 Non-STEMI (non-ST elevated myocardial infarction) ([facility]) 11/19/2016 setting of acute bilateral pulmonary embolism. Oral murray 10/29/2020 Pacemaker 07/25/2021 Pulmonary embolism with acute cor pulmonale (HCC) 11/24/2016 She was initially thought to have a NSTEMI, but was found to be a PE with Right Strain and NOT a NSTEMI. Pulmonary nodule 01/08/2017 SAH (subarachnoid hemorrhage) ([facility]) 10/03/2023 Tubular adenoma of colon 12/29/2017 PAST [...] Mold, Penicillins, Shellfish, Spiriva With Handihaler [Tiotropium Equinunk], Sulfa (Sulfonamide Antibiotics), Symbicort [Budesonide-Formoterol], and Tetanus [...] Patient requesting second opinion, will refer to [facility] pulmonology - CONSULT TO PULMONARY MEDICINE 2. [...] Level: 4 - Moderate documented in this encounterClermont County Hospital01-22-2025 Miscellaneous Notes* Telephone Encounter - Faby Sears RN - 09/28/2024 10:53 AM EST Esther from [facility] calls and reports that patient has been [...] Patient never followed up with PCP or leaf fat scraper after ER visit. Patient has appointment with provider next week and asking if this can be addressed. Advised Esther that patient needs to see leaf fat scraper for this as well. Faby Sears RN documented in this encounterClermont County Hospital01-22-2025 Telephone encounter Note * Telephone Encounter - Faby Sears RN - 09/28/2024 10:53 AM EST Esthre from [facility] calls and reports that patient has been [...] Patient never followed up with PCP or leaf fat scraper after ER visit. Patient has appointment with provider next week and asking if this can be addressed. Advised Eshter that patient needs to see leaf fat scraper for this as well. Faby Sears RN [facility]12-30-2024 Telephone encounter Note* Telephone Encounter - Kailey [...] Please advise. Thank you. Kailey Caraballo LPN. [facility]12-30-2024 Miscellaneous Notes* Telephone Encounter - Kailey Caraballo [...] you. Kailey Caraballo LPN. documented in this encounterClermont County Hospital12-06-2024 Telephone encounter Note * Telephone Encounter - Adelaida Almendarez LPN - 08/12/2024 1:41 PM EST Phoned patient and she had already spoken to Esther and she is willing to do the referral. Printed items and faxed as requested. [facility]12-06-2024 Miscellaneous Notes* Telephone Encounter - Adelaida Almendarez [...] - 08/11/2024 3:01 PM EST Esther from [facility] calling, they see patients brother and know that patient had a recent fall and feel that they would be able to help with education and address safety concerns for patient. States if PCP is agreeable to please fax face sheet, H & P, and Med list to [phone]. Please advise. documented in this encounterClermont County Hospital12-06-2024 Telephone encounter Note * Telephone Encounter - Ken Contreras MD - 08/12/2024 7:49 AM EST Check with Geoffrey if she agrees to referral. Send referral with patient consent. [facility]12-05-2024 Telephone encounter Note* Telephone Encounter - Anny Frye LPN - 08/11/2024 3:01 PM EST Esther from [facility] calling, they see patients brother and know that patient had a recent fall and feel that they would be able to help with education and address safety concerns for patient. States if PCP is agreeable to please fax face sheet, H & P, and Med list to [phone]. Please advise. [facility]12-02-2024 Telephone encounter Note* Telephone Encounter - Cindy Pathak LPN - 08/08/2024 1:31 PM EST Patient called stating that she fell yesterday evening. Feel backward hitting her back and back of head. Cyndi was called and evaluated her but did [...] agreed to same and will go to [facility] ER. [facility]12-02-2024 Miscellaneous Notes* Telephone Encounter - iCndy Pathak LPN - 08/08/2024 1:31 PM EST [...] agreed to same and will go to [facility] ER. documented in this encounterClermont County Hospital11-04-2024 Telephone encounter Note * Telephone Encounter - Meg Arreguin OCCA - 07/11/2024 1:02 PM EST Information faxed as requested below. EVAN Weeks [facility]11-04-2024 Miscellaneous Notes* Telephone Encounter - Meg Arreguin OCCA - 07/11/2024 1:02 PM EST Information faxed as requested below. EVAN Weeks * Telephone Encounter - Meg Arreguin OCCA - 07/08/2024 4:39 PM EDT TC to [facility] at . Office is currently closed, please call back later forfax number. EVAN Weeks * Telephone Encounter - Jyotsna Donohue APRN.CNP - 07/08/2024 3:20 PM EDT Please fax my progress note and her PSG results to her Crystal Slicer Dr Jaswant Miller at [facility] Jyotsna Donohue APRN.CNP * Telephone Encounter - Jayde Bautista LPN - 06/24/2024 11:15 AM EDT Please see attached sleep study results- Scan on 06/24/2024 10:56 AM by Provider, External, ELOYC: PSG [facility] 06/21/24 Jayde Bautista LPN documented in this encounterClermont County Hospital11-01-2024 Telephone encounter Note * Telephone Encounter - Meg Arreguin OCCA - 07/08/2024 4:39 PM EDT TC to [facility] at . Office is currently closed, please call back later forfax number. EVAN Weeks [facility]11-01-2024 Telephone encounter Note* Telephone Encounter - Jyotsna Donohue APRN.CNP - 07/08/2024 3:20 PM EDT Please fax my progress note and her PSG results to her Crystal S[facility] Dr Jaswant Miller at [facility] Jyotsna Donohue APRN.CNP [facility] Work Phone: 1(648) 393-160611-01-2024 Instructions* Patient Instructions* Jyotsna Donohue APRN.CNP - 07/08/2024 11:09 AM EDT We will notify Dr Jaswant Miller of your in-lab sleep study results documented in this encounterClermont County Hospital11-01-2024 History of Present illness Narrative* Jyotsna Donohue APRN.CNP - 07/08/2024 10:30 AM EDT Images from the original note were not included. [facility] Follow up/ Established patient [...] which included preparing to see the patient, kdok-zq-qhce patient care, completing clinical documentation, obtaining and/or [...] even in the absence of respiratory events thereforeshe was sent for in- lab PSG which she had done at [facility]. She was put on supplemental O2 [...] better after taking lasix prescribed by her dental service technician Dr Mcpherson, this is a new prescription for her, and he stopped amlodipine Her leaf fat scraper is Dr Jaswant Miller at [facility] Sleep is fine Takes lorazepam 2 [...] are sorted in reverse-chronological order 04/14/2024 07/03/2024 Inglis Sleepiness Scale Score 9 (No clinically significant [...] O2. Case discussed with Dr Cartwright. Her Crystal Slicer is Dr Jaswant Miller at [facility] -- will update him on her PSG; pt is aware of this plan. Her sleep has improved with treatment of chronic UTI and with lasix from Cardiology, much less nocturia She can follow up with Sleep prn Jyotsna Donohue APRN.BERTHA documented in this encounterClermont [facility]11-01-2024 NotePremier [facility]10-30-2024 Instructions* Patient Instructions* Ailyn Bonner APRN.CNP - 07/06/2024 2:58 PM EDT Continue to work with sleep medicine. Follow up in 6 months. documented in this encounterClermont County Hospital10-30-2024 [facility]10-30-2024 History of Present illness Narrative* Ailyn Bonner [...] once oxygenation improves. Discussed reaching out to leaf fat scraper. Pt agreeable. No orders found for this [...] results. She was continuing to work with [employer] is on hold due to oxygen desaturation. [...] jaundice UE SAB EF EE WE WF Air Conditioning Manager R 5/5 5/5 5/5 5/5 5/5 5/5 L 5/5 5/5 5/5 5/5 5/5 5/5 LE HF KF KE PF DF R /5 5/5 5/5 5/5 5/5 L 5/5 5/5 [...] which included preparing to see the patient, [id number] patient care, completing clinical documentation, performing a medically appropriate examination, counseling and educating the patient/family/caregiver, ordering medications, tests, or p rocedures and communicating results to the patient/family/caregiver. LAW Kebede.BERTHA Physical [facility] Re[facility] documented in this encounterClermont County Hospital10-18-2024 Telephone encounter Note * Telephone Encounter - Jayde Bautista LPN - 06/24/2024 11:15 AM EDT Please see attached sleep study results- Scan on 06/24/2024 10:56 AM by Provider, NIRMAL Stevenson: PSG [facility] 06/21/24 Jayde Bautista LPN [facility]09-30-2024 Telephone encounter Note* Telephone Encounter - Saida [...] Flores MA June 06, 2024 12:20 PM [facility]09-30-2024 Miscellaneous Notes* Telephone Encounter - Siada Flores MA - 06/06/2024 12:20 PM EDT [...] 06, 2024 12:20 PM documented in this encounterClermont County Hospital09-30-2024 Telephone encounter Note * Telephone Encounter - Laurence Torres LPN - 06/06/2024 10:07 AM EDT Pt called in and has not heard anything regarding testing to be done at [facility] for a Polysomnogram. I have re-faxed orders, face sheet and supporting information to [phone]. I have asked the department to call pt to schedule. Pt aware if she does not hear from [facility] to call the department to schedule procedure. Referral has been place. Laurence Torres LPN [facility]09-30-2024 Miscellaneous Notes* Telephone Encounter - Laurence Torres LPN - 06/06/2024 10:07 AM EDT Pt called in and has not heard anything regarding testing to be done at [facility] for a Polysomnogram. I have re-faxed orders, face sheet and supporting information to [phone]. I have asked the department to call pt to schedule. Pt aware if she does not hear from [facility] to call the department to schedule procedure. Referral has been place. Laurence Torres LPN documented in this encounterClermont County Hospital09-25-2024 Telephone encounter Note * Telephone Encounter - Jose Baron MA - 06/01/2024 9:30 AM EDT Received last office note request from [facility]. [facility] notes faxed and confirmationreceived [facility]09-25-2024 Miscellaneous Notes* Telephone Encounter - Jose Baron MA - 06/01/2024 9:30 AM EDT Received last office note request from [facility]. [facility] notes faxed and confirmationreceived documented in this encounterClermont County Hospital09-20-2024 Nurse Note* Ana Frye MA - 05/27/2024 10:10 AM EDT Per PCP EKG and Echo faxed to Dr. Miller's office with [facility] at [phone]. Ana Frye MA [facility]09-20-2024 Nurse Note* Ana Frye MA - 05/27/2024 10:10 AM EDT Per PCP EKG and Echo faxed to Dr. Miller's office with [facility] at [phone]. Ana Frye MA documented in this encounterClermont County Hospital09-20-2024 History of Present illness Narrative* Bria Solorio [...] PATIENT PRESENTS WITH AN IMPLANTABLE OR ATTACHED LITERATURE TEACHER: No RADIOLOGY DEPARTMENT: General X-ray: Exam(s) Completed: Chest X-Ray PERIPHERAL IV DATA: Not applicable SIGNED BY: RT Luz Marina(Barbie) May 27, 2024 9:04 AM documented in this encounterClermont County Hospital09-20-2024 NotePremier [facility]09-20-2024 NotePrem[facility]09-20-2024 History of Present illness Narrative* Ken Contreras MD - 05/27/2024 8:24 AM EDT This note was created using [employer]ious Box[employer]. Subjective Patient presents with: Follow Up: From PT Geoffrey Barbie Nassar is a 89 year old female. [...] has known asthma and bronchiectasis followed by [facility]. She was on an annual follow [...] BNP Ken Contreras MD documented in this encounterClermont County Hospital09-19-2024 NotePremier [facility]09-19-2024 History of Present illness Narrative* Jackie Lainez, [...] sharply on her. PLAN FOR NEXT VISIT: [place] SUBJECTIVE: Patient notes twice this week she [...] was used in selection of appropriate interventions. Self-Assisted Management: 1: Long discussion with patient about [...] 1615 Jackie Lainez PT documented in this encounterClermont County Hospital09-18-2024 Telephone encounter Note * Telephone Encounter - Jayde Bautista LPN - 05/25/2024 4:18 PM EDT Orders for PSG faxed to [facility] per request. Jayde Bautista LPN [facility]09-18-2024 Miscellaneous Notes* Telephone Encounter - Jayde Bautista LPN - 05/25/2024 4:18 PM EDT Orders for PSG faxed to [facility] per request. Jayde Bautista LPN * Telephone Encounter - Pat Domínguez - 05/25/2024 4:07 PM EDT Pt would like PSG done at [facility]. Please fax order. Thank you documented in this encounterClermont County Hospital09-18-2024 Telephone encounter Note * Telephone Encounter - Pat Domínguez - 05/25/2024 4:07 PM EDT Pt would like PSG done at [facility]. Please fax order. Thank you [facility]09-13-2024 NotePrem[facility]09-13-2024 History of Present illness Narrative* Dave Padilla, [...] patient safety with use of gait belt. Self-Assisted Management: 1: Education on symptoms to watch [...] : 1100 Session Stop Time : 1140 DIONI Magana PT documented in this encounterClermont County Hospital09-09-2024 Telephone encounter Note * Telephone Encounter - Jayde Bautista LPN - 05/16/2024 4:57 PM EDT Pt is agreeable, please place order. Jayde Bautista LPN [facility]09-09-2024 Miscellaneous Notes* Telephone Encounter - Jayde Bautista [...] previously seen by Dr. Reynold Miller at [facility]. Kaya Cartwright MD documented in this encounterClermont County Hospital09-09-2024 Telephone encounter Note * Telephone Encounter - Kaya Cartwright Jr., MD - 05/16/2024 11:37 AM EDT I would recommend an in lab study to better evaluate. If pt willing, will place order. Kaya Cartwright MD [facility]09-09-2024 NotePremier Health [facility]09-09-2024 History of Present illness Narrative* Rhoda Alcazar [...] by mouth once daily. Prescribed by Dr. 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 Rhoda Alcazar MD documented in this encounterClermont County Hospital09-09-2024 Telephone encounter Note * Telephone Encounter - Jayde Bautista LPN - 05/16/2024 10:37 AM EDT TC to pt who voiced understanding with seeing Pulm at the hospital. If it is recommended to do an in lab study, pt is agreeable. Jayde Bautista LPN [facility]09-09-2024 Telephone encounter Note* Telephone Encounter - Jayde Bautista LPN - 05/16/2024 8:48 AM EDT ----- Message from Kaya Cartwright MD sent at 05/13/2024 6:21 PM EDT ----- Patient with hypoxia at night. Patient not wanting in lab sleep study. For hypoxia recommend followup with pulmonary - previously seen by Dr. Reynold Miller at [facility]. Kaya Cartwright MD [facility]09-06-2024 Telephone encounter Note* Telephone Encounter - Adelaida Almendarez LPN - 05/13/2024 3:22 PM EDT Phoned patient aware referral is in computer. Assisted with transfer to [facility] to get ENT appt set up hopefully in [place]. [facility]09-06-2024 Miscellaneous Notes* Telephone Encounter - Adelaida Almendarez LPN - 05/13/2024 3:22 PM EDT Phoned patient aware referral is in computer. Assisted with transfer to [facility] to get ENT appt set up hopefully in [place]. * Telephone Encounter - Faby Sears RN - 05/13/2024 2:00 PM EDT Patient calls and is asking if provider can place an ENT referral. Patient would like to see if shecan get into [facility]. Patient can't get into [facility] until end of month and patientstates that she needs to be seen sooner than that. Please review and advise, Faby Sears RN documented in this encounterClermont County Hospital09-06-2024 Telephone encounter Note * Telephone Encounter - Dia Lopez APRN.CNP - 05/13/2024 2:18 PM EDT Addressed at office visit today Dia Lopez APRN.CNP [facility]09-06-2024 Miscellaneous Notes* Telephone Encounter - Dia Lopez APRN.CNP - 05/13/2024 2:18 PM EDT Addressed at office visit today Dia Lopez APRN.CNP documented in this encounterClermont County Hospital09-06-2024 Telephone encounter Note * Telephone Encounter - Faby Sears RN - 05/13/2024 2:00 PM EDT Patient calls and is asking if provider can place an ENT referral. Patient would like to see if shecan get into [facility]. Patient can't get into [facility] until end of month and patientstates that she needs to be seen sooner than that. 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 Last appointment 02/11/24. Last Pacemaker check 12/25/23. Cardiac testing- carotid ultrasound 02/25 without significant stenosis; echocardiogram 10/03 EF normal, no significant valvular or structural abnormalities; stress test 01/09/21 without acute findings. Last EKG 05/01/21-sinus bradycardia, borderline EKG Crystal Slicer- Dr. 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 Last appointment 02/26/24. No [...] diarrhea 11/19/2016: Non-STEMI (non-ST elevated myocardial infarction) ([facility]) Comment: setting of acute bilateral pulmonary embolism. 10/29/2020: Oral murray 07/25/2021: Pacemaker 11/24/2016: Pulmonary embolism with acute cor pulmonale ([facility]) Comment: She was initially thought to have a NSTEMI, but was found to be a PE with Right Strain and NOT a NSTEMI. 01/08/2017: Pulmonary nodule 10/03/2023: SAH (subarachnoid hemorrhage) ([facility]) 12/29/2017: Tubular adenoma of colon PAST SURGICAL [...] Mold, Penicillins, Shellfish, Spiriva With Handihaler [Tiotropium Equinunk], Sulfa (Sulfonamide Antibiotics), Symbicort [Budesonide-Formoterol], and Tetanus [...] (FLUSH) INJECTION SYRINGE She will contact her leaf fat scraper to discuss lung function testing Follow-up pending [...] plan. Dia Lopez APRN.CNP documented in this encounterClermont County Hospital09-06-2024 NotePremier Health [facility]09-05-2024 Telephone encounter Note* Telephone Encounter - Dia Lopez APRN.CNP - 05/12/2024 1:53 PM EDT Will address tomorrow Dia Lopez APRN.CNP [facility]09-05-2024 Miscellaneous Notes* Telephone Encounter - Dia Lopez APRN.CNP - 05/12/2024 1:53 PM EDT Will address tomorrow Dia Lopez APRN.CNP * Telephone Encounter - Ailyn Simpson - 05/12/2024 1:21 PM EDT Patient transferred to [facility] for assistance with scheduling lab sleep study. [...] to evaluate hypoxia on 05/13/24. Transferred to [facility] for in lab sleep study. Ute Gibbs RN documented in this encounterClermont County Hospital09-05-2024 Telephone encounter Note * Telephone Encounter - Ailyn Simpson - 05/12/2024 1:21 PM EDT Patient transferred to [facility] for assistance with scheduling lab sleep study. No orders available in patient's chart, [facility] unable to schedule without orders. Please notify patient when orders have been signed and are available. [facility]09-05-20[facility] Telephone encounter Note* Telephone Encounter - Ute [...] Physical Therapy today. Scheduled with Dia Lopez BEATER LEAD to evaluate hypoxia on 05/13/24. Transferred to [facility] for in lab sleep study. Ute Gibbs, RN [facility]09-05-2024 NotePremier [facility]09-05-2024 History of Present illness Narrative* Jackie Lainez, [...] 1229 DIONI Magana PT documented in this encounterClermont County Hospital08-30-2024 NotePremier Health [facility]08-30-2024 History of Present illness Narrative* Aubrey Sarmiento - 05/06/2024 10:51 AM EDT Sleep Study Check-In Documentation Date: May 06, 2024 Name: Geoffrey Nassar Comments: HST was returned in working order with all sleep questionnaires Aubrey Sarmiento * Cher North - 05/02/2024 8:50 PM EDT Nomad # [id number] , date shipped out 05-03-24 Fed ex only Tracking mailout: [phone] [id number] Tracking return: [phone] [id number] * Alison Siddiqi - 04/29/2024 8:55 AM EDT April 29, 2024 An order has been received for Home Sleep Apnea Test (HSAT) from Kaya Whitman Jr., MD , A. Sleep Center Staff/[facility] Staff Orders. Visit prep complete - Please refer to the sleep study order (under procedures tab) for protocol details and special instructions. The sleep study is scheduled for 05/03. Insurance: Payor: MEDICARE / Plan: MEDICARE A AND B / Product Type: Medicare / Payer/Plan Subscr Sex Relation Sub. Ins. ID Effective Group Num 1. MEDICARE - [place]* GEOFFREY NASSAR 1935 Female Self [id number] 02/05/02 [address]. ANTHEM - ANTHGEOFFREY LOYOLA 1935 Female Self [id number] 08/07/16 [id number] [address] Alison Siddiqi documented in this encounterClermont County Hospital08-29-2024 NotePremier Health [facility] Center08-29-2024 History of Present illness Narrative* Migel Jackie, PT - 05/05/2024 2:46 PM EDT Episode [...] 1318 Jackie Lainez PT documented in this encounterClermont County Hospital08-26-2024 NoteHNO ID: [id number] Author: ?, ?, ? Service: ? Author Type: ? Type: Progress Notes Filed: 05/06/2024 10:52 Note Text: Nomad # [id number] , date shipped out 05-03-24 Fed ex only Tracking mailout: [id number] Tracking return: [id number] [id number]08-26-2024 Telephone encounter Note* Telephone Encounter - Ute [...] Gibbs RN May 02, 2024 2:15 PM [facility]08-26-2024 Miscellaneous Notes* Telephone Encounter - Ute Gibbs [...] 02, 2024 2:15 PM documented in this encounterClermont County Hospital08-23-2024 NotePremier Health [facility] Center08-21-2024 NotePrem[facility]08-21-2024 History of Present illness Narrative* Migel Jackie, PT - 04/27/2024 8:54 AM EDT Images [...] in SLS to reflect decreased fall risk. [place] in home exercise program including cardiovascular exercise. Planned Interventions, Frequency, and Duration: Current Frequency: 1x/week Duration: 8 weeks Total Number of Visits Planned: 8 Planned Treatment Interventions: Therapeutic exercise (02815), Neuromuscular re- education (82756), Manual therapy (25138), Therapeutic activities (58605), Self- assisted management (03287), Patient/Family/Caregiver Education, Body Mechanics Training, Gait Training (27864) PLAN FOR NEXT VISIT: Initiate balance exercises [...] Lainez PT - 04/26/2024 3:42 PM EDT Program_ID:[id number] Access Code: [email or web address] URL: [email or web address] Date: 04-26-2024 Prepared By: Jackie Lainez Program [...] sets - 10 reps documented in this encounterClermont County Hospital08-15-2024 History of Present illness Narrative* Michelle Vazquez [...] 1935 Current Age: [age] year old MRN/E# [id number] Last Office Visit: 01/21/2024 Ms.Sally Barbie Nassar [...] colon who was seen for consult at [facility] on 10/03/2023 after transfer from an outside [...] follow up MIKEL Abernathy Neurosurgery Nurse Practitioner [facility] FOLLOW UP: Return in about 6 months (around 10/22/2024) for routine visit (phone or in person). I have communicated my name and active licensure. The patient's identity and physical location wereverified at the time of this visit. Either the patient or their legal healthcare representative has been informed of the risks and benefits of -- and alternatives to -- treatment through a remote evaluation andconsents to proceed with the evaluation remotely. Time spent: 5-10 minutes Please Note: This note has been partially generated using [employer], a speech recognition software program, and may contain errors including punctuation, grammar, spelling, gender, and inappropriate words or phrases that pertain to the system. documented in this encounterClermont County Hospital08-15-2024 NoteHNO ID: [id number] Author: MICHELLE VAZQUEZ APRN.CNP Service: ? Author [...] 1935 Current Age: [age] year old MRN/E# [id number] Last Office Visit: 01/21/2024 Ms.Sally Barbie Nassar [...] colon who was seen for consult at [facility] on 10/03/2023 after transfer from an outside [...] (TYLENOL) 500 mg tablet (more content not included)...[facility]08-12-2024 Instructions* Patient Instructions* Kaya Cartwright Jr., MD - 04/18/2024 9:08 AM EDT Your most recent body mass index (BMI) that we have on record is 31.31 kg/m2. Obstructive sleep apnea (JADIEL) worsens with an increase in weight; reduction in weight may improve or resolve your JADIEL. Ifyou are not already seeking treatment, there are resources available at the [facility] such as a nutrition consultation or referral to weight management programs at our [facility] [place]. Please let us know if we can assist with a referral. documented in this encounterClermont County Hospital08-12-2024 NotePremier Health [facility]08-12-2024 History of Present illness Narrative* Kaya Cartwright [...] to visit, patient did have PSG in 2019 that per report was unremarkable ([facility]) -- note BMI unchanged since that [...] does worry about it. Also adaughter in [place], [place] she worries about. States another daughter with eating disorder and granddaughter in [place] who is alone but a future dancer. despite fdc depression and anxiety and multiple meds, has never seen psychiatry. Saw psychologist once but does not believe it helped her much. When asked more about Ativan, states reason she started on it was that [...] 43.5 09/29/2023 34.9 36.3 05/21/2023 42.3 43.5 Inglis Sleepiness Scale Scores 04/14/2024 Inglis Sleepiness Scale Score 9 Insomnia Severity Index [...] diarrhea 11/19/2016: Non-STEMI (non-ST elevated myocardial infarction) ([facility]) Comment: setting of acute bilateral pulmonary embolism. 10/29/2020: Oral murray 07/25/2021: Pacemaker 11/24/2016: Pulmonary embolism with acute cor pulmonale ([facility]) Comment: She was initially thought to have a NSTEMI, but was found to be a PE with Right Strain and NOT a NSTEMI. 01/08/2017: Pulmonary nodule 10/03/2023: SAH (subarachnoid hemorrhage) ([facility]) 12/29/2017: Tubular adenoma of colon FAMILY HISTORY [...] Wt 77.7 kg (171 lb 3.2 oz) [id number]% BMI 31.31 kg/m GENERAL EXAM: General appearance: [...] which included preparing to see the patient, [id number] patient care, completing clinical documentation, obtaining and/or reviewing separately obtained history, performing a medically appropriate examination, counseling and educating the pa tient/family/caregiver, ordering medications, tests, or procedures, and communicating results to the patient/family/caregiver. PDMP website checked and validated. All prescriptions have been APPROPRIATELY filled. No suspiciousactivity was identified. 04/18/2024 by Kaya Cartwright MD documented in this encounterClermont County Hospital07-29-2024 Telephone encounter Note * Telephone Encounter - Christin Alonso LPN - [...] Alonso LPN April 04, 2024 7:26 AM [facility]07-29-2024 Miscellaneous Notes* Telephone Encounter - Christin Alonso [...] 04, 2024 7:26 AM documented in this encounterClermont County Hospital07-24-2024 History of Present illness Narrative* Dia Lopez, IT DIRECTOR.TOY CONSULTANT - 03/30/2024 3:04 PM EDT Images from [...] She has mild asthma, follows up with leaf fat scraper yearly. No recent exacerbations and using inhalers [...] Mold, Penicillins, Shellfish, Spiriva With Handihaler [Tiotropium Equinunk], Sulfa (Sulfonamide Antibiotics), Symbicort [Budesonide-Formoterol], and Tetanus [...] 60+ series) Never done Covid-19 Vaccine(4 - 2022- season) due on 09/30/2024 Influenza Vaccine(1) due [...] plan. Dia Lopez APRN.CNP documented in this encounterClermont County Hospital06-26-2024 Telephone encounter Note * Telephone Encounter - [...] Please advise. Thank you. Kailey Caraballo LPN. [facility]06-26-2024 Miscellaneous Notes* Telephone Encounter - Kailey Caraballo [...] you. Kailey Caraballo LPN. documented in this encounterClermont County Hospital06-10-2024 Telephone encounter Note * Telephone Encounter - Norma Wong RN - 02/15/2024 11:36 AM EDT Patient returned call and given provider's message below and patient verbalized understanding. Gee Wong RN [facility]06-10-2024 Miscellaneous Notes* Telephone Encounter - Norma Wong [...] low TSH that was resulted 02/11/2024 at [facility]. Current dose of levothyroxine is 88 MCG 6 days a week. documented in this encounterClermont County Hospital06-10-2024 Telephone encounter Note * Telephone Encounter - Yessenia Perez LPN - 02/15/2024 9:40 AM EDT Message left for pt to return call to a nurse. [facility]06-08-2024 Telephone encounter Note* Telephone Encounter - Ken Contreras MD - 02/13/2024 12:22 PM EDT ASSESSMENT/PLAN: 1. Acquired hypothyroidism - ICD9: 244.9, ICD10: E03.9 Decrease dose. Requested Prescriptions Signed Prescriptions Disp Refills levothyroxine (SYNTHROID) 88 mcg tablet 66 tablet 1 Sig: Take 1 tablet by mouth five times a week. Mondays thru Fridays. None on Saturdays and Sundays. Authorizing Provider: KEN CONTRERAS MD [facility]06-07-2024 Telephone encounter Note* Telephone Encounter - Yessenia Perez LPN - 02/12/2024 3:22 PM EDT Called pt and pharmacy verified. She report she has been fatigued for some time. Cardiology ordered the labs. That note is too in scanned documents. [facility]06-07-2024 Telephone encounter Note* Telephone Encounter - Cindy Pathak LPN - 02/12/2024 3:07 PM EDT Patient called to alert PCP of low TSH that was resulted 02/11/2024 at [facility]. Current dose of levothyroxine is 88 MCG 6 days a week. [facility]05-22-2024 NoteHNO ID: [id number] Author: JOSE DIAZ CCC-MANAGER STRATEGIC DEVELOPMENT Service: ? Author Type: Speech Language Pathologist Type: Progress Notes Filed: 01/27/2024 16:46 Note Text: Episode Visit Count: 1 Therapist That Will Accept/Oversee The Plan Of Care: Jennifer Start of Care Date: 01/27/24 Onset Date: 09/07/23 (- fall in 09/2023) Plan of Care Certification Date: 01/27/24 Next Certification Due Date: 02/26/24 Patient Identified by Name and Date of : Yes [facility] SPEECH and COGNITIVE LINGUISTIC EVALUATION PLAN OF CARE: Impression: Functional communication without limitations in: Speech Communication deficits identified: Cognitive deficits RECOMMENDATION: MANAGER STRATEGIC DEVELOPMENT Recommendations: Outpatient Speech Therapy Results and Recommendations [...] and Duration: Planned Treatment Interventions: Cognitive-Linguistic Training (34232, 66777, 75478), Patient / Caregiver Education/ Training Current Frequency: [...] Eval Sound Production with Language Expression and Stock Puller (52714) Speech/Language Therapy (more content not included)...[id number] History of Present illness Narrative* Jose Diaz CCC-MANAGER STRATEGIC DEVELOPMENT - 01/27/2024 3:31 PM EDT Episode Visit Count: 1 Therapist That Will Accept/Oversee The Plan Of Care: [place] Start of Care Date: 01/27/24 Onset Date: 09/07/23 (- fall in 09/2023) Plan of Care Certification Date: 01/27/24 Next Certification Due Date: 02/26/24 Patient Identified by Name and Date of : Yes [facility] SPEECH and COGNITIVE LINGUISTIC EVALUATION PLAN OF CARE: Impression: Functional communication without limitations in: Speech Communication deficits identified: Cognitive deficits RECOMMENDATION: MANAGER STRATEGIC DEVELOPMENT Recommendations: Outpatient Speech Therapy Results and Recommendations [...] and Duration: Planned Treatment Interventions: Cognitive-Linguistic Training (42830, 59814, 58135), Patient / Caregiver Education/ Training Current Frequency: [...] Eval Sound Production with Language Expression and Stock Puller (57687) Speech/Language Therapy (30787): Skilled Intervention: Educated and instructed patient on compensatory strategies for word-finding, complex reasoning, categorization, and thought organization Educated and instructed patient on memory recall strategies such as verbal repetition, visualization, association, chunking, graphic skills, and designated routine. Provided multi-modality cues in simple reasoning, sequencing, and visual reasoning / organization. Current Home Program: - memory strategies Billing: Eval Sound Production with Language Expression and Stock Puller (03070) and Speech Treatment (36498) Total time / Length of visit: 60 minutes Session Start Time : 1530 Session Stop Time : 1630 JACOB SelfMANAGER STRATEGIC DEVELOPMENT documented in this encounterClermont [facility]05-16-[facility]24 History of Present illness Narrative* Michelle Vazquez APRN.CNP - 01/21/2024 2:00 PM EDT NEUROSURGERY FOLLOW UP OFFICE NOTE Michelle Vazquez APRN.CNP Date of visit: January 21, 2024 Patient Name: Ms.Sally Barbie Nasasr Date of : 1935 Current Age: [age] year old Sex: female MRN/E# [id number] Last Office Visit: 10/22/2023 CHIEF COMPLAINT: Patient presents with: Established Patient HPI: The patient presents for a follow up without new imaging for evaluation. This is an 88-year-old female with a PMHx of diverticulosis, HTN, PE, pacemaker, asthma, umbilical hernia, GERD, hypothyroidism, degenerative disc disease (lumbar) tubular adenoma of the colon who was seen for consult at [facility] on 10/03/2023 after transfer from an outside ED by Dr. Holder. Patient was seen after a fall in [facility] after tripping over a curb causing her [...] by mouth once daily. Prescribed by Dr. Wyneski ergocalciferol 50,000 unit capsule (VITAMIN D2, DRISDOL) [...] 3-month follow-up MIKEL Abernathy Neurosurgery Nurse Practitioner [facility] FOLLOW UP: Return in about 3 months (around 04/22/2024) for routine follow up. Please Note: This note has been partially generated using [employer], a speech recognition software program, and may contain errors including punctuation, grammar, spelling, gender, and inappropriate words or phrases that pertain to the system. documented in this encounterClermont County Hospital05-16-2024 NoteHNO ID: [id number] Author: MICHELLE VAZQUEZ APRN.CNP Service: ? Author Type: Nurse Practitioner Type: Progress Notes Filed: 01/21/2024 14:37 Note Text: NEUROSURGERY FOLLOW UP OFFICE NOTE Michelle Vazquez APRN.CNP Date of visit: January 21, 2024 Patient Name: Ms.Sally Barbie Nassar Date of : 1935 Current Age: [age] year old Sex: female MRN/E# [id number] Last Office Visit: 10/22/2023 CHIEF COMPLAINT: Patient presents with: Established Patient HPI: The patient presents for a follow up without new imaging for evaluation. This is an 88-year-old female with a PMHx of diverticulosis, HTN, PE, pacemaker, asthma, umbilical hernia, GERD, hypothyroidism, degenerative disc disease (lumbar) tubular adenoma of the colon who was seen for consult at [facility] on 10/03/2023 after transfer from an outside [...] PLANA Left FAMILY HISTORY (more content not included)...[facility]05-01-2024 Instructions* Patient Instructions* Ailyn Bonner, IT DIRECTOR.TOY CONSULTANT - 01/06/2024 3:13 PM EDT Referral placed for sleep medicine. Please call [phone] and schedule an appt with Dr. Kaya Cartwright- sleep medicine for evaluation. Referral placed for speech therapy. [place] documented in this encounterClermont [facility] Hospital05-01-2024 History of Present illness Narrative* Ailyn Bonner APRN.BERTHA - 01/06/2024 2:48 PM EDT IMPRESSION: Geoffrey [...] jaundice UE SAB EF EE WE WF Air Conditioning Manager R 5/5 5/5 5/5 5/5 5/5 5/5 [...] up. After visit summary discussed. Ailyn Bonner APRN.CNP Physical Medicine & Rehab [facility] documented in this encounterClermont County Hospital04-01-2024 Miscellaneous Notes* Telephone Encounter - Saida Flores [...] you. Saida Flores MA. documented in this encounterClermont County Hospital03-05-2024 NoteHNO ID: [id number] Author: ARACELIS PORTILLO, PhD Service: ? 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 She shared [...] take her to the emergency department at [facility]. CT scan of the brain indicated a brain bleed and she was subsequently transferred to [facility] where she was admitted. Geoffrey stated that the bleed resolved without neurosurgical intervention and she was discharged home on 10/05/2023. Injury Description: Loss of Consciousness: none Post-traumatic amnesia: none [place] Coma Scale:15 Neuroimaging findings: CT scan of the brain indicated bilateral subarachnoid hemorrhages Residual physical symptoms: none COGNITIVE CONCERNS: Geoffrey denied any prior history of cognitive concerns. Subsequent to her injury she has not noted any changes in cognitive abilities and feels she is at her baseline. Activities of Daily Living: Hygiene: independent Commercial Announcer: independent - recently hired a obgyn hospitalist physician and uses food delivery services from [employer] Medications: independent Finances: independent Driving: independent MEDICAL [...] cognitive or learning disord (more content not included)...[facility]03-05-2024 NoteHNO ID: [id number] Author: ARACELIS PORTILLO, PhD Service: ? Author Type: Psychologist Type: Progress Notes Filed: 11/10/2023 14:32 Note Text: [facility]03-04-2024 Instructions* Patient Instructions* Tremaine Landon MD - 11/09/2023 2:27 PM EST Thank you very much for your visit! We will plan to see you in 8 weeks for follow up. Please schedule follow-up with Advanced Practice Provider (Ailyn Bonner) by calling at contact no. [phone] or [phone] for appointment scheduling. You were referred to [...] questions or problems with your medications at [phone]. documented in this encounterClermont County Hospital03-04-2024 History of Present illness Narrative* Tremaine Landon [...] this encounter. The patient chart reviewed in [facility] and history obtained/confirmed with patient. Geoffrey Nassar [...] 15 Brought in by: Initially evaluated in [facility] ER and transferred to [facility] Imaging: CT of head - Yes, multifocal subarachnoid hemorrhages Other injuries: None Hospital Course -ASA on hold, reversed with DDAVP -1 week course of Keppra given for seizure prophylaxis -Non-surgical treatment recommended by NSGY, Monitored in ICU, repeat imaging stable -She had no swallowing difficulty, evaluated by MANAGER STRATEGIC DEVELOPMENT -OT and PT assessment done -She was [...] at homewhen she feels wobbly especially during tank car loader hours and at night. She uses cane [...] cleaning, laundry but she has assigned a obgyn hospitalist physician to help with cleaning. She drives without [...] as noted above. 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 Will continue to monitor need for MANAGER STRATEGIC DEVELOPMENT and sleep medicine referral -Patient was educated on to gradual increase in activities as tolerated. -Continue use of cane/walker, follow fall precautions. I spent a total of 60 minutes on the date of the service which included preparing to see the patient, fywj-nd-dlvc patient care, completing clinical documentation, performing a medically appropriate examination, counseling and educating the patient/family/caregiver, ordering medications, tests, or p rocedures and communicating results to the patient/family/caregiver. Tremaine Landon MD Physical Medicine & Rehab [facility] documented in this encounterClermont County Hospital03-04-2024 NoteHNO ID: [id number] Author: TREMAINE LANDON MD Service: ? Author [...] this encounter. The patient chart reviewed in [facility] and history obtained/confirmed with patient. 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 She uses cane [...] cleaning, laundry but she has assigned a obgyn hospitalist physician to help with cleaning. She drives without [...] Small volume bilateral suprat (more content not included)...[facility]02-28-2024 Miscellaneous Notes* Telephone Encounter - Kailey Caraballo LPN - 11/04/2023 11:46 AM EST TC to Geoffrey, she did not realize that she had a refill for Lorazepam, she will contact the pharmacy. Kailey Caraballo LPN documented in this encounterClermont County Hospital02-27-2024 Miscellaneous Notes* Telephone Encounter - Kassidy Peña [...] you. Kassidy Peña RN. documented in this encounterClermont County Hospital02-22-2024 Miscellaneous Notes* Telephone Encounter - Ute Gibbs [...] advise, Faby Sears RN documented in this encounterClermont County Hospital02-15-2024 History of Present illness Narrative* Michelle Vazquez APRN.CNP - 10/22/2023 2:30 PM EST Images from the original note were not included. NEUROSURGERY FOLLOW UP OFFICE NOTE Michelle Vazquez APRN.CNP Date of visit: October 22, 2023 Patient Name: Ms.Sally Barbie Nassar Date of : 1935 Current Age: [age] year old Sex: female MRN/E# [id number] Last Office Visit: Hospital follow-up CHIEF COMPLAINT: [...] routine visit. MIKEL Abernathy Neurosurgery Nurse Practitioner [facility] General FOLLOW UP: Return in about 3 months (around 01/20/2024) for routine visiit. Please Note: This note has been partially generated using [employer], a speech recognition software program, and may contain errors including punctuation, grammar, spelling, gender, and inappropriate words or phrases that pertain to the system. documented in this encounterClermont County Hospital02-15-2024 NoteHNO ID: [id number] Author: MICHELLE VAZQUEZ APRN.CNP Service: ? Author Type: Nurse Practitioner Type: Progress Notes Filed: 10/22/2023 16:05 Note Text: NEUROSURGERY FOLLOW UP OFFICE NOTE Michelle Vazquez APRN.CNP Date of visit: October 22, 2023 Patient Name: Ms.Sally Barbie Nassar Date of : 1935 Current Age: [age] year old Sex: female MRN/E# [id number] Last Office Visit: Hospital follow-up CHIEF COMPLAINT: Patient presents with: Established Patient HPI: The patient presents for a hospital follow up with imaging (CT B) for evaluation. This is an 88-year-old female with a PMHx of diverticulosis, HTN, PE, pacemaker, asthma, umbilical hernia, GERD, hypothyroidism, degenerative disc disease (lumbar) tubular adenoma of the colon who was seen for consult at [facility] on 10/03/2023 after transfer from an outside [...] 180 tablet 3 levothyroxine (more content not included)...[facility] 10-19-2023 History of Present illness Narrative* Carla [...] PATIENT PRESENTS WITH AN IMPLANTABLE OR ATTACHED LITERATURE TEACHER: No RADIOLOGY DEPARTMENT: CT; Exam(s) Completed: Brain PERIPHERAL IV DATA: Not applicable SIGNED BY: RT Andrea(R) October 19, 2023 4:11 PM documented in this encounterClermont County Hospital02-07-2024 History of Present illness Narrative* Ken Contreras MD - 10/14/2023 1:03 PM EST This note was created using [employer]. Subjective Patient presents with: Transition Of Care [...] and injuring her head. She wasevaluated in [facility] ER and transferred to [facility] due to bilateral SAH. Her aspirin and [...] ordered. She had benefit from aquatherapy at [facility] a few years ago. She will call for order if she still felt weak after regular PT, OT. She had a walker at home. Ken Contreras MD documented in this encounterClermont County Hospital01-29-2024 NoteHNO ID: [id number] Author: IRIS DELEON PA-C Service: General Surgery Author Type: Physician Pig Iron Loader Type: Plan of Care Filed: 10/05/2023 13:45 Note Text: Trauma Surgery Plan of Care 10/05/2023 (10/05/2023, 1:45 PM): Met with patient earlier today and discussed code status. She stated that she thinks she has a DNR but would like to remain full code at this time per our discussion. Orders placed. Iris Deleon PA-C 10/05/2023 1:45 [facility]01-29-2024 NoteHNO ID: [id number] Author: IRIS DELEON PA-C Service: General Surgery Author Type: Physician Pig Iron Loader Type: Progress Notes Filed: 10/05/2023 10:21 Note Text: Trauma Surgery Progress Note SERVICE DATE: 10/05/2023 Trauma Service Pager: For questions or concerns Mon-Fri 6a-5p please page [phone]. After 5pm and on Weekends and Holidays, please page [phone] if in ICU or [phone] if on RNF. SUBJECTIVE: NAEON. Patient notes [...] O2 Therapy: Room Air IANDO: Date 10/04/23 07 - 10/05/23 0659 10/05/23 07 - 10/06/23 0659 Shift 0543-8552 6308-7460 1575-6879 24 Hour Total 9836-3024 6400-0897 0419-5692 24 Hour Total INTAKE PO 560 560 [...] female s/p GLF on 10/02/2023 (Transfer from [place]) Imaging performed: 10/02/2023 - CT HN 10/03/2023 [...] weeks PCP INPATIENT ATTENDING (more content not included)...[facility] 10-05-2023 NoteHNO ID: [id number] Author: CORINA HOLDER MD Service: Neurosurgery Author Type: Physician Type: Plan of Care Filed: 10/05/2023 07:21 Note Text: Study #[id number]: Traumatic Brain Injury Patient Registry PI: Corina Holder MD Visit: Eligibility check Inclusion Criteria Age 18-99: Yes Radiographic evidence of a TBI confirmatory head computed tomography (CT) : Yes Exclusion Criteria Sfz-Gqalutj-yvalmgto: No Age < 18 years of age: [...] the 23-1248: Traumatic Brain Injury Patient Registry Corina Holder [facility]01-28-2024 NoteHNO ID: [id number] Author: ILENE VILLELA RN Service: Nursing Author Type: Registered Nurse Type: Progress Notes Filed: 10/04/2023 13:49 Note Text: Pt bladder scanned holding 230 cc, dr erazo notified, ordered to bladder scan at [address] [facility]01-28-2024 NoteHNO ID: [id number] Author: WNE GALICIA MD Service: General Surgery Author Type: Physician Type: Progress Notes Filed: 10/04/2023 09:59 Note Text: Trauma Surgery Progress Note SERVICE DATE: 10/04/2023 Trauma Service Pager: For questions or concerns Mon-Fri 6a-5p please page [phone]. After 5pm and on Weekends and Holidays, please page [phone] if in ICU or [phone] if on RNF. SUBJECTIVE: Patient seen this [...] Therapy: Nasal Cannula IANDO: Date 10/03/23699 - 10/04/2365810/04/23699 - 10/05/23 0659 Shift 2496-3694 3095-5993 3373-6890 24 Hour Total 4406-1047 8478-1619 5142-9908 24 Hour Total INTAKE PO 120 120 [...] pacemaker), prior cholecystectomy, STEPHON BSO presents from [place] with traumatic scattered SAH status post GLF with Imaging performed: CT HN (10/03) Traumatic Injuries: Multiple bilateral parietal and frontoparietal cortical SAH, small focus within right temporal lobe. Operations/Procedures: 1. NA Care Plan: Scattered Traumatic SAH NSGY following Status post DDAVP in ED Cont to hold ASA and thinners Transferred to [facility] from SICU Cont keppra 7 days and [...] PATIENT NAME: Geoffrey Valentin (more content not included)...[facility]01-27-2024 History of Past illness Narrative* Problem Noted [...] of this encounter (statuses as of 10/29/2023) [facility] of Past illness Narrative* Problem [...] of this encounter (statuses as of 11/04/2023) [facility] History of Past illness Narrative* Problem [...] of this encounter (statuses as of 11/05/2023) [facility] History of Past illness Narrative* Problem [...] of this encounter (statuses as of 11/10/2023) [facility] History of Past illness Narrative* Problem [...] of this encounter (statuses as of 12/07/2023) [facility]01-24-2024 Instructions* Patient Instructions* Dia Lopez, IT DIRECTOR.TOY CONSULTANT - 09/30/2023 2:46 PM EST Screening schedule The following prevention plan is recommended: RSV Vaccine(1 - 1-dose 60+ series) Never done Covid-19 Vaccine() due on 05/08/2023 WHAT YOU CAN DO [...] review all the medicines you take, even qvcr-rpw-jevmfmh medicines. As you get older, the way [...] have certain medical conditions. documented in this encounterClermont County Hospital01-24-2024 History of Present illness Narrative* Dia Lopez APRN.CNP - 09/30/2023 2:43 PM EST Geoffrey Nassar [...] Pulmonology- Dr. Jaswant Miller, Uro-gynecology- Dr. Hansen, Cloth Spreader Screen Printing-Dr. Jolly, Assembler Dc Field Ring-Dr. Neil Hawthorne, ophthalmology- [facility]/Family [...] manageable and not affecting daily life. Bronchiectasis- leaf fat scraper is Dr. Miller with [facility]. Symptoms are stable. Using Breo Ellipta [...] Counseled on low sodium diet Dia Lopez APRN.TOY CONSULTANT documented in this encounterClermont County Hospital11-28-2023 History of Present illness Narrative* Bonnie Escobar [...] 04, 2023 2:04 PM documented in this encounterClermont County Hospital10-31-2023 History of Present illness Narrative* William Zamudio Zaydao Christophe - 07/07/2023 1:30 PM EDT Radiology Service [...] PERIPHERAL IV DATA: Not applicable SIGNED BY: William Zamudio Zaydao Christophe July 07, 2023 2:28 PM documented in this encounterClermont County Hospital09-14-2023 History of Present illness Narrative* Dia Thayer APRN.TOY CONSULTANT - 05/21/2023 1:52 PM EDT Images from the original note were not included. CC: Patient presents with: ER F/U: 05/18/23 HPI Geoffrey Nassar is a 88 year old female who presents today for above. Patient presented to [facility] ER on05/18 with injury to face [...] Mold, Penicillins, Shellfish, Spiriva With Handihaler [Tiotropium Equinunk], Sulfa (Sulfonamide Antibiotics), Symbicort [Budesonide-Formoterol], Tetanus Toxoid [...] is alert. DATA REVIEWED: Outside chart from [facility] ER reviewed. ASSESSMENT/PLAN: 1. Fall on [...] Patient agreeable to treatment plan. Dia Thayer APRN.CNP documented in this encounterClermont County Hospital08-22-2023 Miscellaneous Notes* Telephone Encounter - Cindy Pathak [...] weeks. Cindy Pathak LPN documented in this encounterClermont County Hospital07-05-2023 Miscellaneous Notes* Telephone Encounter - Kailey Caraballo [...] you. Kailey Caraballo LPN documented in this encounterClermont County Hospital06-12-2023 Miscellaneous Notes* Telephone Encounter - Adelaida Almendarez LPN - 02/16/2023 3:42 PM EDT Patient calling said she has been trying to get refills on 4 rx from [facility] and told her on hold and would need all new rx. This nurse called [facility] and spoke to Gudelia and all 4 [...] rx since not needed. documented in this encounterClermont County Hospital05-05-2023 Discharge summary Author Shad Hunter [facility] January 09, 2023 10:18pm Note Date/Time January 09, 2023 7:07pm [facility] Medical Records Department [address] [place] [address] Emergency Department Summary 01/09/23 MR#: [id number] Acct: [id number] Name: GEOFFREY NASSAR Rep #:[id number] : 1935 87 From: Arturo Greer MD PCP: Dr. Ken Contreras MD Status:R EG ER Location: ED HPI <Dr. Arturo Greer MD - Last Filed: [...] feel sick or ill in any way. COUNT INCLUDES THE [facility] <Dr. Arturo Greer MD - Last Filed: 01/09/23 22:07> COUNT INCLUDES THE [facility] Medical History Acute respiratory failure with [...] Ox 97 Oxygen Delivery Method Room Air MDM <Dr. Arturo Greer MD - Last Filed: 01/09/23 22:07> [facility] MDM Narrative Medical decision making narrative: My independent [...] Marquise Matthew MD at 19:09 EDT , <Dr. Shad Hunter MD - Last Filed: 01/09/23 22:18> [facility] Radiography Diagnostic Testing: Clinical Impression(s) from [...] your Primary Care Provider. Call [facility] ([phone]) or report to the closest Emergency Room. Call 911 if necessary. 01/09/232207 <Electronically signed by Arturo Greer MD> Cosigner Signature (if applicable): 01/09/232217 <Electronically signed by Shad Hunter MD> CC: Dr. Ken Contreras MD ~ Signed [facility] Work Phone: 1(317) 270-799205-05-2023 History of Present illness Narrative* Jorge Jordan APRN.BERTHA - 01/09/2023 5:59 PM EDT Patient came [...] emergency room for evaluation. documented in this encounterClermont County Hospital04-25-2023 Miscellaneous Notes* Telephone Encounter - Pushpa Murphy RN - 12/30/2022 3:08 PM EDT Pt is using [facility]. Phone number is . Patient has been identified by name and date of : Yes, Provider Cleopatra Date 12/30/22 Time 2650 Patient phones for refill(s): Requested Prescriptions Pending [...] 07/18/2021 19 Please advise. Thank you. Pushpa Murphy, RN * Telephone Encounter - Laurence Torres LPN - 12/30/2022 2:18 PM EDT Spoke with pt and her prescriptions were sent to the mail service pharmacy [facility] which was the wrong pharmacy. This is an independent pharmacy [phone]. When I called they they told me [...] FYI: pt had a phone number for [facility] pharmacy which is [employer] and she no longer has [employer]. Laurence Torres LPN : documented in this encounterClermont County Hospital04-25-2023 Miscellaneous Notes* Telephone Encounter - Laurence Torres LPN - 12/30/2022 2:52 PM EDT This message has been closed and there is a phone encounter dated 12-30-22. Laurence Torres LPN documented in this encounterCl[facility]04-[facility]23 Miscellaneous Notes* Telephone Encounter - Anny Frye LPN - 12/10/2022 11:15 AM EDT Patient states that the medication was sent to the wrong pharmacy. Asking that the amlodipine and lisinopril be sent to [facility] in [place]. Orders pended. documented in this encounterClermont [facility]04-03-2023 Miscellaneous Notes* Telephone Encounter - Dia Thayer [...] pharmacy. Saida Flores Ma documented in this encounterClermont [facility] Hospital04-03-2023 Miscellaneous Notes* Telephone Encounter - Adelaida Almendarez LPN - 12/08/2022 11:26 AM EDT Patient calling asking about Lisinopril and Amlodipine rx. computer shows rx was sent on 11/17/2022 so she should not need new rx.Patient is calling [facility] pharmacy to find out what is going on, shehad never gotten the rx yet. documented in this encounterClermont [facility] Hospital03-13-2023 Miscellaneous Notes* Telephone Encounter - Cindy Pathak [...] advise. Cindy Pathak LPN documented in this encounterClermont [facility] Hospital02-25-2023 Miscellaneous Notes* Telephone Encounter - Seema Florence [...] her. 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 Thank you. documented in this encounterClermont County Hospital01-11-2023 Miscellaneous Notes* Addendum Note - Dia Thayer APRN.BERTHA - 09/17/2022 5:28 PM ESTAddended by: DIA [...] 09/17/2022 2:55 PM EST [facility] phone # [phone] * Telephone Encounter - Kailey Caraballo LPN - 09/16/2022 2:11 PM EST Spoke to Geoffrey, she is going to call [facility] to verify. Will call back & ask to speak to a nurse. Kailey Caraballo LPN * Telephone Encounter - Dia Thayer APRN.CNP - 09/16/2022 9:37 AM EST There is a [facility] pharmacy in [place], [place], is this the one she is referring to? Dia Thayer APRN.CNP * Telephone Encounter - Deidre West LPN - 09/15/2022 4:03 PM EST Pt calls to report she has a new mail-in pharmacy: [facility]. Pt reports she needs new rx faxed to: [phone]. Could not find [facility] in [facility]. Pt reports phone # [phone]. Rx set to print. Patient has been [...] patient. Deidre West LPN documented in this encounterClermont County Hospital11-25-2022 History of Present illness Narrative* Ken Contreras MD - 08/01/2022 3:01 PM EST This note was created using [employer] Box[employer]. Subjective Geoffrey Nassar is a 87 year [...] sexual function, balance, teeth/dentures: Not at all [place] anxious, stressed, angry, irritable, lonely, isolated, or [...] pulmonary. Dr. Gee Hawthorne, dermatology. Dr. Izabel aCrlos, ophthalmology. Dr. Jolly, podiatry. Medical/Family history review [...] kg/(m^2) - Fall avoidance documented in this [facility]11-11-2022 Miscellaneous Notes* Telephone Encounter - Christin Moreland Ma - 07/18/2022 3:38 PM EST Last OV: 06/19/22 Next OV:08/01/22 documented in this [facility]11-08-2022 Instructions* Patient Instructions* Geoff Carlos MD - 07/15/2022 2:30 PM EST Current Ophthalmic Meds brimonidine-timolol (COMBIGAN) 0.2-0.5 % ophthalmic solution Use 1 Drop in the left eye twice daily. latanoprost (XALATAN) 0.005 % ophthalmic solution Use 1 Drop in both eyes daily at bedtime. Plan Canaloplasty/Trabeculotomy with the Omni surgical system Left Eye on 08/18/2022 at [facility]. If you have any questions please contact our office at [phone]. After office hours or on the weekend, please call Dr. Carlos on his cell phone at [phone]. documented in this [facility]11-08-2022 History of Present illness Narrative* Geoff [...] surgical system Left Eye on 08/18/2022 at [facility]. PHYSICAL EXAM: Vital Signs: Blood pressure [...] diagnosis, and treatment options. documented in this encounterClermont [facility] Hospital10-29-2022 History of Present illness Narrative* Misael Cooley MD - 07/05/2022 11:12 AM EDT Chief [...] 06/30/2022 Negative Ketones, Urine 06/30/2022 Negative Specific [place], Ur 06/30/2022 1.010 Hemoglobin/Blood,Ur 06/30/2022 Negative pH, [...] Dr Tyrone Cooley MD documented in this encounterClermont County Hospital10-27-2022 Miscellaneous Notes* Telephone Encounter - Yessenia Ana TODD - 07/03/2022 9:06 AM EDT Electronic PA completed for Sig: Take 1 Packet by mouth one time only for 1 dose. Sent to pharmacy as: fosfomycin (MONUROL) 3 g pack This was approved Authorized from September 07, 2021 to September 06, 2023 Information received electronically from payer Pharmacy notified. documented in this encounterClermont County Hospital10-26-2022 Miscellaneous Notes* Telephone Encounter - Shayla Nguyen [...] days after treatment. Thank you Jennifer Thayer APRN.TOY CONSULTANT * Telephone Encounter - Norma Wong RN [...] hasn't taken it since. Requesting [facility] in [place]. Please call patient with update. Thank you. [...] computer already. Please advise documented in this encounterClermont County Hospital10-17-2022 Miscellaneous Notes* Telephone Encounter - Sylvie Robertson [...] please send results to Dr. Hansen with [facility] as patient had requested this during her visit. Thank you Jennifer Thayer APRN.CNP documented in this encounterClermont County Hospital10-13-2022 History of Present illness Narrative* Jennifer Thayer [...] plan. Jennifer Thayer APRN.CNP documented in this encounterClermont County Hospital09-26-2022 Miscellaneous Notes* Telephone Encounter - Kailey Caraballo LPN - 06/02/2022 3:26 PM EDT Patient has [...] you. Kailey Caraballo LPN documented in this encounterClermont County Hospital09-21-2022 Miscellaneous Notes* Telephone Encounter - Kailey Caraballo [...] provider would send and antibiotic in to [facility] in [place]. I told her provider may need to see her in the office. Please call and advise. documented in this encounterClermont County Hospital09-01-2022 Miscellaneous Notes* Telephone Encounter - Ute Gibbs [...] she needs another antibiotic? She called her [facility] and was told to call her PCP. Patient uses [place] [facility] for her pharmacy if needed. Please advise documented in this encounterClermont County Hospital08-31-2022 Miscellaneous Notes* Telephone Encounter - Dia Thayer APRN.CNP - 05/07/2022 5:30 PM EDT PDMP website checked and validated. All prescriptions have been APPROPRIATELY filled. No suspiciousactivity was identified. 05/07/2022 by Dia Thayer APRN.CNP * Telephone Encounter - Saida Flores Ma - 05/07/2022 4:54 PM EDT [facility]: 04/11/2022 Last refill: 01/10/2022 QTY: 30 Refills: 3 documented in this encounterClermont County Hospital08-05-2022 Miscellaneous Notes* Telephone Encounter - Kassidy Peña RN - 04/11/2022 3:27 PM EDT Patient calls to report right ear ache/pressure/itch with sinus pressure and congestion. Nurse triage completed. Protocol recommends see provider within 24 hours. Patient agreeable to appointment butdeclining UC. Appointment scheduled. Care advice reviewed. Patient verbalizes [...] itch. Sinus pressure and congestion. Protocols used: [id number] documented in this encounterClermont County Hospital07-06-2022 Instructions* Patient Instructions* Geoff Carlos MD - 03/12/2022 3:55 PM EDT Current Ophthalmic Meds brimonidine-timolol (COMBIGAN) 0.2-0.5 % ophthalmic solution Use 1 Drop in the left eye twice daily. latanoprost (XALATAN) 0.005 % ophthalmic solution Use 1 Drop in both eyes daily at bedtime. If you have any questions please contact our office at [phone]. After office hours or on the weekend, please call Dr. Carlos on his cell phone at [phone]. documented in this encounterClermont County Hospital07-06-2022 History of Present illness Narrative* Geoff Carlos [...] diagnosis, and treatment options. documented in this encounterClermont County Hospital06-06-2022 Miscellaneous Notes* Telephone Encounter - Zane Jack [...] notify patient. Zane Jack documented in this encounterClermont County Hospital05-19-2022 History of Present illness Narrative* Shakira Vazquez, RT(R) - 01/23/2022 3:00 PM EDT Radiology [...] 23, 2022 2:56 PM documented in this encounterClermont County Hospital05-19-2022 History of Present illness Narrative* Ken Contreras MD - 01/23/2022 1:54 PM EDT This note was created using [employer]ice[employer]. Subjective Geoffrey Nassar is a 86 year [...] - good control The ASCVD Risk score ([place] DC Jr., et al., 2013) failed to [...] vaccine - ICD9: V04.89, ICD10: Z23 - PFIZER-BIONTHotPads COVID-19 VACCINE, AGE 12+ YR ([place] TOP) 8. Personal history of squamous cell carcinoma of skin - ICD9: V10.83, ICD10: Z85.828 Noted. Ken Contreras MD documented in this encounterClermont County Hospital05-03-2022 History of Present illness Narrative* Ria Matamoros DO - 01/07/2022 11:22 AM EDT This office note has been dictated. 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 Presence of cardiac pacemaker May, acute Sick sinus syndrome acute Sinus bradycardia acute Asthma acute [facility] Work Phone: 1(408) 332-382909-01-2021 Evaluation note* Diagnosis Onset Date Resolution Status 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 Presence of cardiac pacemaker May, acute Sick sinus syndrome acute Sinus bradycardia acute [facility] Work Phone: 1(851) 432-167509-01-2021 Evaluation note* Diagnosis Onset Date Resolution Status 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 Presence of cardiac pacemaker May, acute Sick sinus syndrome acute Sinus bradycardia acute 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 Essential hypertension acute Presence of cardiac pacemaker May, acute Sinus bradycardia acute [facility] Work Phone: 1(734) 706-812909-01-2021 Evaluation note* Diagnosis Onset Date Resolution Status Admit Date Chronotropic incompetence with sinus node dysfunction acute March 31, 2025 1:26pm Essential hypertension acute Ju 2024 1:26pm Presence of cardiac pacemaker May, a cute March 31, 2025 1:26pm [facility] Work Phone: 1(426) 852-142908-13-2021 History of Past illness Narrative* Problem Noted [...] of this encounter (statuses as of 12/02/2021) [facility] of Past illness Narrative* Problem Noted Date Resolved Date 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 08/04/2021 Conjunctivitis 11/06/2020 04/24/2021 Pseudophakia, both eyes 07/23/2020 [...] of this encounter (statuses as of 01/07/2022) [facility] of Past illness Narrative* Problem Noted Date Resolved Date 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 08/04/2021 Conjunctivitis 11/06/2020 04/24/2021 Pseudophakia, both eyes 07/23/2020 [...] of this encounter (statuses as of 01/10/2022) [facility] of Past illness Narrative* Problem Noted Date Resolved Date 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 08/04/2021 Conjunctivitis 11/06/2020 04/24/2021 Pseudophakia, both eyes 07/23/2020 [...] of this encounter (statuses as of 01/23/2022) [facility] of [facility] illness Narrative* Problem Noted Date Resolved Date 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 08/04/2021 Conjunctivitis 11/06/2020 04/24/2021 Pseudophakia, both eyes 07/23/2020 [...] of this encounter (statuses as of 02/10/2022) [facility] Narrative* Problem Noted Date Resolved Date 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 0804/2021 Conjunctivitis 11/06/2020 04/24/2021 Pseudophakia, both eyes 07/23/2020 [...] of this encounter (statuses as of 03/12/2022) [facility] Narrative* Problem Noted Date Resolved Date 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 08/04/2021 Conjunctivitis 11/06/2020 04/24/2021 Pseudophakia, both eyes 07/23/2020 [...] of this encounter (statuses as of 04/11/2022) [facility] Narrative* Problem Noted [...] of this encounter (statuses as of 04/16/2022) [facility] Narrative* Problem Noted [...] of this encounter (statuses as of 05/07/2022) [facility] Narrative* Problem Noted [...] of this encounter (statuses as of 05/08/2022) [facility] Narrative* Problem Noted [...] of this encounter (statuses as of 05/28/2022) [facility] Narrative* Problem Noted Date Resolved Date 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04/071 Conjunctivitis 11/06/2020 04/24/2021 Pseudophakia, both eyes 07/23/2020 [...] of this encounter (statuses as of 06/03/2022) [facility] Narrative* Problem Noted [...] of this encounter (statuses as of 06/18/2022) [facility] Narrative* Problem Noted [...] of this encounter (statuses as of 06/19/2022) [facility] Narrative* Problem Noted [...] of this encounter (statuses as of 06/23/2022) [facility] Narrative* Problem Noted [...] of this encounter (statuses as of 07/02/2022) [facility] Narrative* Problem Noted [...] of this encounter (statuses as of 07/03/2022) [facility] Narrative* Problem Noted Date Resolved Date 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 0804/2021 Conjunctivitis 11/06/2020 04/24/2021 Pseudophakia, both eyes 07/23/2020 [...] of this encounter (statuses as of 07/05/2022) [facility] Narrative* Problem Noted Date Resolved Date 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 0804/2021 Conjunctivitis 11/06/2020 04/24/2021 Pseudophakia, both eyes 07/23/2020 [...] of this encounter (statuses as of 07/16/2022) [facility] Narrative* Problem Noted [...] of this encounter (statuses as of 07/21/2022) [facility] Narrative* Problem Noted [...] of this encounter (statuses as of 08/01/2022) [facility] Narrative* Problem Noted [...] of this encounter (statuses as of 09/17/2022) [facility] Narrative* Problem Noted [...] with acute cor pulmonale 11/0612/29/2017 Overview: Dr. Jawsant Miller, pulmonary. On home oxygen therapy 11/24/2016 [...] of this encounter (statuses as of 10/31/2022) [facility] Narrative* Problem Noted [...] of this encounter (statuses as of 11/01/2022) [facility] Narrative* Problem Noted [...] of this encounter (statuses as of 11/17/2022) [facility] Narrative* Problem Noted [...] of this encounter (statuses as of 12/08/2022) [facility] Narrative* Problem Noted [...] of this encounter (statuses as of 12/08/2022) [facility] Narrative* Problem Noted [...] of this encounter (statuses as of 12/10/2022) [facility] Narr[facility]* Problem Noted [...] of this encounter (statuses as of 12/31/2022) [facility]* Problem Noted [...] of this encounter (statuses as of 12/31/2022) [facility]* Problem Noted [...] of this encounter (statuses as of 01/10/2023) [facility]* Problem Noted [...] of this encounter (statuses as of 02/09/2023) [facility]* Problem Noted [...] of this encounter (statuses as of 02/17/2023) [facility]* Problem Noted [...] 1 09/09/2010 12/24/2015 Enthesopathy of hip region 07/08/2011 08/18 /2021 Hyperlipemia 06/18/2010 01/08/2017 Dizziness and giddiness 08/27/2009 [...] of this encounter (statuses as of 03/11/2023) [facility]* Problem Noted [...] of this encounter (statuses as of 04/29/2023) [facility]* Problem Noted [...] of this encounter (statuses as of 05/21/2023) [facility]* Problem Noted [...] of this encounter (statuses as of 07/09/2023) [facility]* Problem Noted [...] of this encounter (statuses as of 07/11/2023) [facility]* Problem Noted [...] of this encounter (statuses as of 08/05/2023) [facility]* Problem Noted [...] of this encounter (statuses as of 08/05/2023) [facility]* Problem Noted [...] of this encounter (statuses as of 10/12/2023) [facility]* Problem Noted [...] of this encounter (statuses as of 10/14/2023) [facility]* Problem Noted [...] of this encounter (statuses as of 10/20/2023) [facility]* Problem Noted [...] of this encounter (statuses as of 10/22/2023) [facility]* Diagnosis Venous (peripheral) insufficiency- Primary Unspecified venous (peripheral) insufficiency documented [facility] encounter [facility]* Diagnosis Pleurisy- Primary Pleurisy without mention [...] neoplasm of skin documented [facility] this encounter [facility]* Diagnosis Primary open angle glaucoma (POAG) of both eyes, mild stage- Primary 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, bilateral, intermediate dry stage Essential hypertension Unspecified essential hypertension documented [facility] this encounter [facility]* Diagnosis Anxiety Anxiety state, unspecified documented [facility] this encounter [facility]* Diagnosis Enthesopathy of right hip region Osteoarthritis, unspecified osteoarthritis type, unspecified site DDD (degenerative disc disease), lumbar Degeneration of lumbar or lumbosacral intervertebral disc documented in this encounter [facility]* Diagnosis Urinary tract infection without hematuria, site unspecified- Primary Dysuria documented [facility] this encounter [facility]* Diagnosis Recurrent UTI (urinary tract infection)- Primary Urinary tract infection, site not specified documented [facility] this encounter [facility]* Diagnosis Recurrent UTI- Primary Urinary tract infection, site not specified documented [facility] this encounter [facility]* Diagnosis Recurrent UTI Urinary tract infection, site not specified documented [facility] this encounter [facility]* Diagnosis Primary open angle glaucoma (POAG) of both eyes, mild stage- Primary 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, bilateral, intermediate dry stage Essential hypertension Unspecified essential hypertension documented [facility] this encounter [facility]* Diagnosis Gastroesophageal reflux disease with esophagitis Primary open angle glaucoma (POAG) of left eye, mild stage [facility]* Diagnosis Medicare annual wellness visit, subsequent- Primary Routine general medical examination at a health care facility Dysfunction of left eustachian tube [...] eye, mild stage [facility] this encounter [facility]* Diagnosis DDD (degenerative disc disease), lumbar Degeneration of lumbar or lumbosacral intervertebral disc Depressive disorder w/ seasonal affective disorder Depressive disorder, not elsewhere classified Acquired hypothyroidism Unspecified hypothyroidism Enthesopathy of right hip region Osteoarthritis, unspecified osteoarthritis type, unspecified site Gastroesophageal reflux disease with esophagitis Anxiety Anxiety state, unspecified [facility] Diagnosis DDD (degenerative disc disease), lumbar Degeneration of lumbar or lumbosacral intervertebral disc Depressive disorder w/ seasonal affective disorder Depressive disorder, not elsewhere classified Acquired hypothyroidism Unspecified hypothyroidism Enthesopathy of right hip region Osteoarthritis, unspecified osteoarthritis type, unspecified site Gastroesophageal reflux disease with esophagitis Anxiety Anxiety state, unspecified [facility] Diagnosis Acute constipation- Primary Unspecified constipation [facility]* Diagnosis Depressive disorder w/ seasonal affective disorder Depressive disorder, not elsewhere classified [facility]* Diagnosis DDD (degenerative disc disease), lumbar Degeneration of lumbar or lumbosacral intervertebral disc Depressive disorder w/ seasonal affective disorder Depressive disorder, not elsewhere classified Enthesopathy of right hip region Osteoarthritis, unspecified osteoarthritis type, unspecified site Acquired hypothyroidism Unspecified hypothyroidism documented in this encounter [facility] note* Diagnosis Anxiety Anxiety state, unspecified documented in this encounter [facility] note* Diagnosis Vitamin D deficiency Unspecified vitamin D deficiency documented in this encounter [facility] note* Diagnosis Onset Date Resolution Status Asthma acute Obesity acute 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 Essential hypertension acute Fatigue acute Presence of cardiac pacemaker May, acute Sick sinus syndrome acute Sinus bradycardia acute [facility] Work Phone: Evaluation note* Diagnosis Fall on [...] for breast cancer documented [facility] this encounter [facility]* Diagnosis Abnormal screening mammogram- Primary Abnormal mammogram, unspecified [facility]* Diagnosis Screening mammogram for breast cancer [facility] Diagnosis Abnormal screening mammogram Abnormal mammogram, unspecified [facility]* Diagnosis Abnormal screening mammogram Abnormal mammogram, unspecified [facility] Medicare annual wellness visit, subsequent- Primary Routine general medical examination at a health care facility Depression, recurrent (HCC) Major depressive disorder, recurrent episode, unspecified Bronchiectasis without complication (HCC) Bronchiectasis without acute exacerbation Stage 3 chronic kidney disease, unspecified whether stage 3a or 3b CKD ([facility]) documented in [facility] Diagnosis Subarachnoid bleed (HCC)- Primary Subarachnoid [...] debility Debility, unspecified [facility]* Diagnosis SAH (subarachnoid hemorrhage) ([facility]) Subarachnoid hemorrhage SAH (subarachnoid hemorrhage) ([facility])- Primary Subarachnoid hemorrhage [facility] Diagnosis SAH (subarachnoid hemorrhage) ([facility])- Primary Subarachnoid hemorrhage [facility]* Diagnosis DDD (degenerative disc disease), lumbar- Primary Degeneration of lumbar or lumbosacral intervertebral disc Osteoarthritis, unspecified osteoarthritis type, unspecified site [facility]* Diagnosis Anxiety Anxiety state, unspecified [facility]* Diagnosis DDD (degenerative disc disease), lumbar Degeneration of lumbar or lumbosacral intervertebral disc Acquired hypothyroidism Unspecified hypothyroidism Gastroesophageal reflux disease with esophagitis Depressive disorder w/ seasonal affective disorder Depressive disorder, not elsewhere classified Anxiety Anxiety state, unspecified [facility]* Diagnosis Traumatic brain injury, without loss of consciousness, subsequent encounter- Primary 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 Dizziness and giddiness Forgetfulness Other general symptoms Imbalance Abnormality of gait Post-traumatic headache, not intractable, unspecified chronicity pattern [facility]* Diagnosis Anxiety Anxiety state, unspecified [facility] Diagnosis Personal history of traumatic brain injury- Primary Sleep apnea, unspecified type Fatigue, unspecified type Aphagia Dysphagia, unspecified Impaired functional mobility, balance, gait, and endurance [facility]* Diagnosis SAH (subarachnoid hemorrhage) (HCC)- Primary Subarachnoid hemorrhage documented in this encounter [facility] note* Diagnosis Personal history of traumatic brain injury- Primary documented in this encounter [facility] note* Diagnosis Anxiety Anxiety state, unspecified documented in this encounter [facility] note* Diagnosis Essential hypertension- Primary Unspecified essential hypertension Fall from slip, trip, or stumble, initial encounter Balance problem Other symptoms involving nervous and musculoskeletal systems Asthmatic bronchitis , chronic (HCC) Chronic obstructive asthma, unspecified Acquired hypothyroidism Unspecified hypothyroidism Anxiety Anxiety state, unspecified documented in this encounter [facility] note* Diagnosis Vitamin D deficiency Unspecified vitamin D deficiency documented in this encounter [facility] note* Diagnosis Hypersomnia- Primary Hypersomnia, unspecified Delayed [...] serious comorbidity present [facility] Diagnosis SAH (subarachnoid hemorrhage) (HCC)- Primary Subarachnoid hemorrhage [facility]* Diagnosis Subarachnoid hemorrhage (HCC)- Primary Subarachnoid hemorrhage documented in this encounter [facility] note* Diagnosis DDD (degenerative disc disease), lumbar Degeneration of lumbar or lumbosacral intervertebral disc documented in this encounter [facility] note* Diagnosis Subarachnoid hemorrhage (HCC)- Primary Subarachnoid hemorrhage documented in this encounter [facility] note* Diagnosis Subarachnoid hemorrhage (HCC)- Primary Subarachnoid hemorrhage documented in this encounter [facility] note* Diagnosis Nocturnal hypoxia- Primary Hypoxemia Chest discomfort Other chest pain Bronchiectasis without complication (HCC) Bronchiectasis without acute exacerbation documented in this encounter [facility] note* Diagnosis Odynophagia- Primary Dysphagia, unspecified Oral thrush Candidiasis of mouth documented in this encounter [facility] note* Diagnosis Nocturnal hypoxia- Primary Hypoxemia Sleep apnea-like behavior Class 1 obesity with body mass index (BMI) of 31.0 to 31.9 in adult, unspecified obesity type, unspecified whether serious comorbidity present Hypersomnia Hypersomnia, unspecified Insomnia, unspecified type Snoring Other dyspnea and respiratory abnormality [facility] Diagnosis Sore throat- Primary Acute pharyngitis History of oral lesions Other and unspecified diseases of the oral soft tissues [facility] Diagnosis Subarachnoid hemorrhage (HCC)- Primary Subarachnoid hemorrhage [facility]* Diagnosis Oxygen desaturation- Primary Hypoxemia Encounter for immunization Need for other specified prophylactic vaccination against single bacterial disease Asthmatic bronchitis , chronic (HCC) Chronic obstructive asthma, unspecified Bronchiectasis without complication (HCC) Bronchiectasis without acute exacerbation Nocturnal hypoxemia Hypoxemia Dyspnea, unspecified type [facility] Diagnosis Oxygen desaturation Hypoxemia [facility]* Diagnosis Pleurisy Pleurisy without mention of effusion or current tuberculosis [facility]* Diagnosis Acquired hypothyroidism Unspecified hypothyroidism [facility]* Diagnosis Fatigue, unspecified type- Primary Personal history of traumatic brain injury Impaired functional mobility, balance, gait, and endurance documented [facility]* Diagnosis Excessive daytime sleepiness- Primary [facility]* Diagnosis DDD (degenerative disc disease), lumbar Degeneration of lumbar or lumbosacral intervertebral disc [facility]* Diagnosis Nocturnal hypoxia- Primary Hypoxemia Asthmatic bronchitis , chronic (HCC) Chronic obstructive asthma, unspecified Depression, recurrent (HCC) Major depressive disorder, recurrent episode, unspecified Stage 3 chronic kidney disease, unspecified whether stage 3a or 3b CKD (HCC) Bronchiectasis without complication (HCC) Bronchiectasis without acute exacerbation Essential hypertension Unspecified essential hypertension [facility]* Diagnosis Nocturnal hypoxemia- Primary Hypoxemia Bronchiectasis without complication (HCC) Bronchiectasis without acute exacerbation Pulmonary hypertension (HCC) Other chronic pulmonary heart diseases Mild intermittent asthma without complication Unspecified asthma [facility]* Diagnosis Bronchiectasis without complication (HCC)- Primary Bronchiectasis without acute exacerbation [facility]* Diagnosis Gastroesophageal reflux disease with esophagitis Depressive disorder w/ seasonal affective disorder Depressive disorder, not elsewhere classified Anxiety Anxiety state, unspecified Acquired hypothyroidism Unspecified hypothyroidism [facility]* Diagnosis Hip pain, left Pain in joint, pelvic region and thigh [facility] Diagnosis Hip pain, left- Primary Pain in joint, pelvic region and thigh Physical debility Debility, unspecified Oxygen desaturation Hypoxemia Bronchiectasis without complication (HCC) Bronchiectasis without acute exacerbation [facility]* Diagnosis Hip pain, left- Primary Pain in joint, pelvic region and thigh documented [facility]* Diagnosis Fatigue, unspecified type- Primary 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 lower extremity pain Physical debility Debility, unspecified [facility] noteNo assessment information availableWLancaster [facility] Work Phone: Evaluation note* Diagnosis Chronic obstructive pulmonary disease, unspecified COPD type (HCC)- Primary [facility]* Diagnosis Trochanteric bursitis of left hip- Primary Enthesopathy of hip region Fatigue, unspecified type 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 lower extremity pain Physical debility Debility, unspecified Iron deficiency Iron deficiency anemia, unspecified Vitamin D deficiency Unspecified vitamin D deficiency Recurrent major depressive disorder, in partial remission [facility]* Diagnosis Chronic bilateral low back pain without sciatica- Primary Hip pain, left Pain in joint, pelvic region and thigh Pain of erector spinae muscle [facility]* Diagnosis Medicare annual wellness visit, subsequent- [...] and respiratory abnormality [facility]* Diagnosis Personal history of traumatic brain injury- Primary Sleep apnea, unspecified type [facility]* Diagnosis Depression, recurrent- Primary Major depressive disorder, recurrent episode, unspecified Hip pain, left Pain in joint, pelvic region and thigh Dyspnea on exertion Other dyspnea and respiratory abnormality [facility]* Diagnosis MARTINES (dyspnea on exertion) Other dyspnea and respiratory abnormality [facility]* Diagnosis MARTINES (dyspnea on exertion) Other dyspnea and respiratory abnormality [facility]* Diagnosis Depression, recurrent- Primary Major depressive disorder, recurrent episode, unspecified Hip pain, left Pain in joint, pelvic region and thigh MARTINES (dyspnea on exertion) Other dyspnea and respiratory abnormality Contusion of left side of back, subsequent encounter [facility]* Diagnosis [id number] adverse effect of medication, initial encounter- Primary Allergic rhinitis due to cats Allergic rhinitis due to animal (cat) (dog) hair and dander Allergic rhinitis due to dust mite Moderate persistent asthma without complication (HCC) Unspecified asthma Toxic effect from eating shellfish, accidental or unintentional, initial encounter [facility] Acute cough- Primary Acute cough [facility]* Diagnosis Acute cough [facility]* Diagnosis Depression, recurrent Major depressive disorder, recurrent episode, unspecified [facility] Diagnosis Depression, recurrent Major depressive disorder, recurrent episode, unspecified [facility]* Diagnosis DDD (degenerative disc disease), lumbar Degeneration of lumbar or lumbosacral intervertebral disc [facility]* Diagnosis Bronchiectasis with acute exacerbation (HCC)- Primary Bronchiectasis with acute exacerbation Nocturnal hypoxemia Hypoxemia Mild intermittent asthma without complication (HCC) Unspecified asthma [facility] Additional Instructions Please follow-up with your PCP return for any worsening of your symptoms. Ice your face and knee a few times a day for the next few days, you can take Tylenol for pain as needed. [facility] Work Phone: Hospital Discharge instructions Additional Instructions [...] would like to be seen by an orthopedist.[facility] Work Phone: Reason for referral (narrative)* Diagnostic Procedure Only (Routine) - Authorized Specialty Diagnoses / Procedures Referred By Bhupinder barreto Referred To Contact [facility] Diagnoses Screening mammogram for breast cancer Procedures SOPHIE SCREENING SCREENING MAMMOGRAPHY BI 2-VIEW BREAST INC CAD Dia Thayer APRN.CNP [address] [place] [address] [facility] [address] [place] [address] Referral ID Status Reason Start Date Expiration Date Visits Requested Visits Authorized [id number] Authorized Auto-Generat ed Referral 05/21/2023 06/19/2024 1 1 [facility] for referral (narrative)* Diagnostic Procedure Only (Routine) - Pending Review Specialty Diagnoses / Procedures Referred By Bhupinder barreto Referred To Contact [facility] Diagnoses Abnormal screening mammogram Procedures US BREAST LTD LEFT US BREAST UNI REAL TIME WITH IMAGE LIMITED Dia Thayer APRN.TOY CONSULTANT [address] [place] [address] [facility] [address] [place] [address] Referral ID Status Reason Start Date Expiration Date Visits Requested Visits Authorized [id number] Pending Review Auto-Generat ed Referral 07/08/2023 08/06/2024 1 1 * Diagnostic Procedure Only (Routine) - Pending Review Specialty Diagnoses / Procedures Referred By Bhupinder barreto Referred To Contact [facility] Diagnoses Abnormal screening mammogram Procedures SOPHIE DIAGNOSTIC LEFT DIAGNOSTIC MAMMOGRAPHY COMPUTER-AIDED DETCJ UNI Dia Thayer APRN.CNP [address] [place] [address] [facility] [address] [place] [address] Referral ID Status Reason Start Date Expiration Date Visits Requested Visits Authorized [id number] Pending Review Auto-Generat ed Referral 07/08/2023 08/06/2024 1 1 [facility] for referral (narrative)* Diagnostic Procedure Only (Routine) - Closed Specialty Diagnoses / Procedures Referred By Contac t Referred To Contact [facility] Diagnoses Screening mammogram for breast cancer Procedures SOPHIE SCREENING SCREENING MAMMOGRAPHY BI 2-VIEW BREAST INC CAD Dia Thayer APRN.TOY CONSULTANT [address] [place] [address] [facility] [address] [place] [address] Referral ID Status Reason Start Date Expiration Date V isits Requested Visits Authorized [id number] Closed Auto-Generate d Referral 05/21/2023 06/19/2024 1 1 [facility] for referral (narrative)* Diagnostic Procedure Only (Routine) - Authorized Specialty Diagnoses / Procedures [facility] Diagnoses Hypersomnia Delayed sleep phase syndrome Insomnia, unspecified type Snoring Procedures HOME SLEEP APNEA TEST (HSAT) SLEEP STD AIRFLOW HRT RATE&O2 SAT EFFORT UNATT Kaya Cartwright Jr., MD [address] [address] [address] Referral ID Status Reason Start Date Expiration Date Visits Requested Visits Authorized [id number] Authorized Auto-Generat ed Referral 04/18/2024 04/18/2025 1 1 [facility] for referral (narrative)* Outpatient Procedure (Routine) - Authorized Specialty Diagnoses / Procedures Referred By Contac t Referred [facility] Diagnoses Chest discomfort Nocturnal hypoxia Procedures ECHO ECHO TTHRC R-T 2D W/WOM-MODE COMPL SPEC&COLR D Dia Lopez IT DIRECTOR.TOY CONSULTANT [address] [place] [address] [facility] [address] [place] [address] Referral ID Status Reason Start Date Expiration Date Visits Requested Visits Authorized [id number] Authorized Auto-Generat ed Referral 05/13/2024 05/13/2025 1 1 * Outpatient Procedure (Routine) - New Request Specialty Diagnoses / Procedures Referred By Bhupinder barreto Ref[facility] Diagnoses Chest discomfort Procedures ECG COMPLETE ECG ROUTINE ECG W/LEAST 12 LDS W/I&R Dia Lopez APRN.TOY CONSULTANT [address] [place] [address] [facility] [place] [address] [place] [address] Referral ID Status Reason Start Date Expiration Date Visits Requested Visits Authorized [id number] New Request Auto-Generat ed Referral 05/13/2024 05/13/2025 1 1 [facility]No reason for referral information availableWLancaster Municipal [facility] Work Phone: Reason for visit Narrative* Diagnostic Procedure Only (Routine) - Closed Specialty Diagnoses / Procedures Referred By Bhupinder barreto Referred To Contact [facility] Diagnoses Screening mammogram for breast cancer Procedures SOPHIE SCREENING SCREENING MAMMOGRAPHY BI 2-VIEW BREAST INC CAD Dia Thayer APRN.TOY CONSULTANT [address] [place] [address] [facility] [address] [place] [address] Referral ID Status Reason Start Date Expiration Date V isits Requested Visits Authorized [id number] Closed Auto-Generate d Referral 05/21/2023 06/19/2024 1 1 [facility] for visit Narrative* Diagnostic Procedure Only (Routine) - Authorized Specialty Diagnoses / Procedures Referred By Bhupinder barreto Referred To Contact [facility] Diagnoses Abnormal screening mammogram Procedures US BREAST LTD LEFT US BREAST UNI REAL TIME WITH IMAGE LIMITED Dia Thayer APRN.TOY CONSULTANT [address] [place] [address] [facility] [address] [place] [address] Referral ID Status Reason Start Date Expiration Date Visits Requested Visits Authorized [id number] Authorized Auto-Generat ed Referral 07/08/2023 08/06/2024 1 1 [facility] for visit Narrative* Diagnostic Procedure Only (Routine) - Closed Specialty Diagnoses / Procedures Referred By Contac t Referred To Contact [facility] Diagnoses Abnormal screening mammogram Procedures SOPHIE DIAGNOSTIC LEFT DIAGNOSTIC MAMMOGRAPHY COMPUTER-AIDED DETCJ Dia Grace, IT DIRECTOR.TOY CONSULTANT [address] [place] [address] [facility] [address] [place] [address] Referral ID Status Reason Start Date Expiration Date V isits Requested Visits Authorized [id number] Closed Auto-Generate d Referral 07/08/2023 08/06/2024 1 1 [facility] for visit Narrative* Diagnostic Procedure Only (Routine) - Closed Specialty Diagnoses / Procedures Referred By Contac t Referred To Contact [facility] Diagnoses Hip pain, left Procedures XR HIP GENERAL 3V PELV/AP/LAT LEFT RADEX HIP UNILATERAL WITH PELVIS 2-3 VIEWS Ken Contreras MD [address] [place] [address] Phone: tel: fax: [place] [id number] Referral ID Status Reason Start Date Expiration Date V isits Requested Visits Authorized [id number] Closed Auto-Generate d Referral 11/24/2024 12/24/2025 1 1 [facility] Advance Directives No Advanced Directives Records FoundDocuments on File Type Date Recorded 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 Advance Directive(s) 10/08/2012 8:08 PM Advance Directive(s) 09/13/2012 1:28 PM Advance Directive Response Recorded Date/ Time Advance Directives Yes May 10:59am Living Will Yes May 29, 2021 3:45pm Power of Drop Hammer Operator Helper Yes May 3:45pm Documents on File Type Date Recorded 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 Advance Directive(s) 10/08/2012 8:08 PM Advance Directive(s) 09/13/2012 1:28 PM Advance Directive Response Recorded Date/ Time Advance Directives Yes May 9:59am Living Will Yes May 29, 2021 2:45pm Power of Drop Hammer Operator Helper Yes May 2:45pm Advance Directive Response Recorded Date/ Time Name of Medical Power of Drop Hammer Operator Helper BROTHER January 09, 2023 6:50pm Advance Directives Yes May 10:59am Living Will Yes January 09, 2023 6: 50pm Power of Drop Hammer Operator Helper Yes January 09, 2023 6:50pm Advance Directive Response Recorded Date/ Time Advance Directives Yes May 10:59am Living Will Yes January 09, 2023 6: 50pm Power of Drop Hammer Operator Helper Yes January 09, 2023 6:50pm Advance Directive Response Recorded Date/ Time Name of Medical Power of Drop Hammer Operator Helper ? May 18, 2023 2:23pm Advance Directives Yes May 10:59am Living Will Yes May 18, 2023 2:23pm Power of Drop Hammer Operator Helper Yes May 2:23pm Advance Directive Response Recorded Date/ Time Name of Medical Power of Drop Hammer Operator Helper ? May 18, 2023 2:23pm Name of Medical Power of Drop Hammer Operator Helper GAMALIEL BLAND May 27, 2023 5:48pm Advance Directives Yes May 10:59am Living Will Yes May 27, 2023 5:48pm Power of Drop Hammer Operator Helper Yes May 5:48pm Advance Directive Response Recorded Date/ Time Name of Medical Power of Drop Hammer Operator Helper FARTUN ROQUE October 02, 2023 7:10pm Advance Directives Yes May 9:59am Living Will Yes October 02 7:10pm Power of Drop Hammer Operator Helper Yes October 02, 2023 7:10pm Latest Code [...] Will Yes August 08 4:42pm Power of Drop Hammer Operator Helper Yes August 08, 2024 4:42pm Name of Medical Power of Drop Hammer Operator Helper Benny Edwards August 08, 2024 4:42pm Living Will No September 05, 2 024 6:11pm Power of Drop Hammer Operator Helper No September 05, 2024 6:11pm Advance Directives Yes May 10:59am Advance Directive Response Recorded Date/ Time Do you have a Healthcare Power of Drop Hammer Operator Helper? Yes February 15, 2025 4:00pm Name of Medical Power of Drop Hammer Operator Helper gamaliel bland February 15, 2025 4:00pm Advance Directives Yes May 10:59am Advance Directive Response Recorded Date/ Time Living Will Yes October 02 8:10pm Do you have a Healthcare Power of Drop Hammer Operator Helper? Yes October 02, 2023 8:10pm Do you have a Healthcare Power of Drop Hammer Operator Helper? Yes February 15, 2025 4:00pm Name of Medical Power of Drop Hammer Operator Helper gamaliel bland February 15, 2025 4:00pm Advance [...] 0am FALL February 15, 2025 2:13 pm Chief Complaint Admit Date Pacer Check Remote December 23, 2024 2:3 0am FALL February 15, 2025 2:13 pm DYSPNEA ON EXERTION March 08, 2025 7:27a m DYSPNEA ON EXERTION March 08, 2025 5:19p m Chief Complaint Admit Date Pacer Check Remote December 23, 2024 2:3 0am FALL February 15, 2025 2:13 pm DYSPNEA ON EXERTION March 08, 2025 7:27a m DYSPNEA ON EXERTION March 08, 2025 5:19p m Pacer Check Remote March 24, 2025 2:31 am Chief Complaint Admit Date Pacer Check Remote December 23, 2024 2:3 0am FALL February 15, 2025 2:13 pm DYSPNEA ON EXERTION March 08, 2025 7:27a m DYSPNEA ON EXERTION March 08, 2025 5:19p m Pacer Check Remote March 24, 2025 2:31 am 9 M FU March 31, 2025 1:26 pm Reason for Visit Admit Date Chronotropic incompetence with sinus nod e dysfunction March 31, 2025 1:26pm Essential hypertension March 31, 2025 1 :26pm Presence of cardiac pacemaker March 31, 2025 1:26pm Family History No Family History Records Found Relationship Condition Age at Onset Recorded Date/T fletcher mother Malignant neoplasm of breast Unknown Malignant neoplasm of colon Unknown father Malignant neoplasm Unknown grandmother Malignant neoplasm of breast Unknown Cerebrovascular accident (CVA) Unknown Reason for Referral Specialty Diagnoses / Procedures Referred By Contac t Referred To Contact Diagnoses Recurrent UTI Jennifer Thayer, KALEE.TOY CONSULTANT [address] [place] [address] Referral ID Status Reason Start Date Expiration Date V isits Requested Visits Authorized [id number] Pending Review 1 1 Specialty Diagnoses / Procedures Referred By Contac t Referred To Contact CT IMAGING Diagnoses SAH (subarachnoid hemorrhage) (HCC) Procedures CT BRAIN WO IVCON CT HEAD/BRAIN W/O CONTRAST MATERIAL Dulce Vallejo, [place] [address] [place] [address] [place] [id number] Referral ID Status Reason Start Date Expiration Date V isits Requested Visits Authorized [id number] Closed Auto-Generate d Referral 10/03/2023 11/01/2024 1 1 Specialty Diagnoses / Procedures Referred By Contac t Referred To Contact Diagnoses Traumatic brain injury, without loss of consciousness, 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 Procedures CONSULT TO PSYCHIATRY OFFICE/OUTPATIENT [facility] 60 MINUTES Tremaine Landon MD [address] [place] [address] Referral ID Status Reason Start Date Expiration Date Visits Requested Visits Authorized [id number] Pending Review PCP Requested Referral 11/09/2023 11/08/2024 1 1 Specialty Diagnoses / Procedures Referred By Contac t Referred To Contact [facility] Diagnoses Personal history of traumatic brain injury Procedures CONSULT TO SPEECH THERAPY OFFICE/OUTPATIENT [facility] 60 MINUTES Ailyn Bonner, IT DIRECTOR.TOY CONSULTANT [address] [place] [address] [facility] [place] [address] [place] [address] Referral ID Status Reason Start Date Expiration Date Visits Requested Visits Authorized [id number] Authorized Auto-Generat ed Referral 01/06/2024 01/05/2025 99 99 Specialty Diagnoses / Procedures Referred By Contac t Referred To Contact Diagnoses Sleep apnea, unspecified type Fatigue, unspecified type Procedures CONSULT TO SLEEP MEDICINE - ADULT OFFICE/OUTPATIENT [facility] 60 MINUTES Ailyn Bonner, IT DIRECTOR.TOY CONSULTANT [address] [place] [address] Referral ID Status Reason Start Date Expiration Date Visits Requested Visits Authorized [id number] Authorized PCP Requested Referral 01/06/2024 01/05/2025 1 1 Specialty Diagnoses / Procedures Referred By Contac t Referred To Contact Ent - Otolaryngology Diagnoses Odynophagia Oral thrush Procedures CONSULT TO ENT OFFICE/OUTPATIENT [facility] 60 MINUTES Dia Lopez, IT DIRECTOR.TOY CONSULTANT [address] [place] [address] Referral ID Status Reason Start Date Expiration Date Visits Requested Visits Authorized [id number] Authorized PCP Requested Referral 05/13/2024 05/13/2025 1 1 Medications Administered Section Inactive Administered Medications - up to 3 most recent administrations Medication Order MAR Action Action Date Dose Rate Site fluorescein-benoxinate 0.25-0.4 % 1 Drop (FLURESS) 1 Drop, BOTH EYES, DIRECTED, Starting on Thu07/15/22 at 1430, Until Thu07/16/22 at 022, Administer for applanation tonometry. In the event of a Fluress shortage, administer [place]-Fluor 1 drop into both eyes as directed [...] Until Thu07/16/22 at 0229, Administer for dilation Given 07/15/2022 2:30 PM EST 1 Drop Summary Purpose Additional Source Comments Source Comments (unrecognize d section and content) In the event this informatio n is protected by the Federal Confidentiality of Alcohol and Drug Abuse Patient Records regulations: The Federal rules restrict any use of the information to criminally investigate or prosecute any alcohol or drug abuse patient.[facility] the event this information is protected by the Federal Confidentiality of Alcohol and Drug Abuse Patient Records regulations: The Federal rules restrict any use of the information to criminally investigate or prosecute any alcohol or drug abuse patient.[facility] the event this information is protected by the Federal Confidentiality of Alcohol and Drug Abuse Patient Records regulations: The Federal rules restrict any use of the information to criminally investigate or prosecute any alcohol or drug abuse patient.[facility]In the event this information is protected by the Federal Confidentiality of Alcohol and Drug Abuse Patient Records regulations: The Federal rules restrict any use of the information to criminally investigate or prosecute any alcohol or drug abuse patient.[facility]In the event this information is protected by the Federal Confidentiality of Alcohol and Drug Abuse Patient Records regulations: The Federal rules restrict any use of the information to criminally investigate or prosecute any alcohol or drug abuse patient.[facility]In the event this information is protected by the Federal Confidentiality of Alcohol and Drug Abuse Patient Records regulations: The Federal rules restrict any use of the information to criminally investigate or prosecute any alcohol or drug abuse patient.[facility]In the event this information is protected by the Federal Confidentiality of Alcohol and Drug Abuse Patient Records regulations: The Federal rules restrict any use of the information to criminally investigate or prosecute any alcohol or drug abuse patient.[facility]In the event this information is protected by the Federal Confidentiality of Alcohol and Drug Abuse Patient Records regulations: The Federal rules restrict any use of the information to criminally investigate or prosecute any alcohol or drug abuse patient.[facility]In the event this information is protected by the Federal Confidentiality of Alcohol and Drug Abuse Patient Records regulations: The Federal rules restrict any use of the information to criminally investigate or prosecute any alcohol or drug abuse patient.[facility]In the event this information is protected by the Federal Confidentiality of Alcohol and Drug Abuse Patient Records regulations: The Federal rules restrict any use of the information to criminally investigate or prosecute any alcohol or drug abuse patient.[facility]In the event this information is protected by the Federal Confidentiality of Alcohol and Drug Abuse Patient Records regulations: The Federal rules restrict any use of the information to criminally investigate or prosecute any alcohol or drug abuse patient.[facility]In the event this information is protected by the Federal Confidentiality of Alcohol and Drug Abuse Patient Records regulations: The Federal rules restrict any use of the information to criminally investigate or prosecute any alcohol or drug abuse patient.[facility]In the event this information is protected by the Federal Confidentiality of Alcohol and Drug Abuse Patient Records regulations: The Federal rules restrict any use of the information to criminally investigate or prosecute any alcohol or drug abuse patient.[facility]In the event this information is protected by the Federal Confidentiality of Alcohol and Drug Abuse Patient Records regulations: The Federal rules restrict any use of the information to criminally investigate or prosecute any alcohol or drug abuse patient.[facility]In the event this information is protected by the Federal Confidentiality of Alcohol and Drug Abuse Patient Records regulations: The Federal rules restrict any use of the information to criminally investigate or prosecute any alcohol or drug abuse patient.[facility]In the event this information is protected by the Federal Confidentiality of Alcohol and Drug Abuse Patient Records regulations: The Federal rules restrict any use of the information to criminally investigate or prosecute any alcohol or drug abuse patient.[facility]In the event this information is protected by the Federal Confidentiality of Alcohol and Drug Abuse Patient Records regulations: The Federal rules restrict any use of the information to criminally investigate or prosecute any alcohol or drug abuse patient.[facility]In the event this information is protected by the Federal Confidentiality of Alcohol and Drug Abuse Patient Records regulations: The Federal rules restrict any use of the information to criminally investigate or prosecute any alcohol or drug abuse patient.[facility]In the event this information is protected by the Federal Confidentiality of Alcohol and Drug Abuse Patient Records regulations: The Federal rules restrict any use of the information to criminally investigate or prosecute any alcohol or drug abuse patient.[facility]In the event this information is protected by the Federal Confidentiality of Alcohol and Drug Abuse Patient Records regulations: The Federal rules restrict any use of the information to criminally investigate or prosecute any alcohol or drug abuse patient.[facility]In the event this information is protected by the Federal Confidentiality of Alcohol and Drug Abuse Patient Records regulations: The Federal rules restrict any use of the information to criminally investigate or prosecute any alcohol or drug abuse patient.[facility]In the event this information is protected by the Federal Confidentiality of Alcohol and Drug Abuse Patient Records regulations: The Federal rules restrict any use of the information to criminally investigate or prosecute any alcohol or drug abuse patient.[facility]In the event this information is protected by the Federal Confidentiality of Alcohol and Drug Abuse Patient Records regulations: The Federal rules restrict any use of the information to criminally investigate or prosecute any alcohol or drug abuse patient.[facility]In the event this information is protected by the Federal Confidentiality of Alcohol and Drug Abuse Patient Records regulations: The Federal rules restrict any use of the information to criminally investigate or prosecute any alcohol or drug abuse patient.[facility]In the event this information is protected by the Federal Confidentiality of Alcohol and Drug Abuse Patient Records regulations: The Federal rules restrict any use of the information to criminally investigate or prosecute any alcohol or drug abuse patient.[facility]In the event this information is protected by the Federal Confidentiality of Alcohol and Drug Abuse Patient Records regulations: The Federal rules restrict any use of the information to criminally investigate or prosecute any alcohol or drug abuse patient.[facility]In the event this information is protected by the Federal Confidentiality of Alcohol and Drug Abuse Patient Records regulations: The Federal rules restrict any use of the information to criminally investigate or prosecute any alcohol or drug abuse patient.[facility]In the event this information is protected by the Federal Confidentiality of Alcohol and Drug Abuse Patient Records regulations: The Federal rules restrict any use of the information to criminally investigate or prosecute any alcohol or drug abuse patient.[facility]In the event this information is protected by the Federal Confidentiality of Alcohol and Drug Abuse Patient Records regulations: The Federal rules restrict any use of the information to criminally investigate or prosecute any alcohol or drug abuse patient.[facility]In the event this information is protected by the Federal Confidentiality of Alcohol and Drug Abuse Patient Records regulations: The Federal rules restrict any use of the information to criminally investigate or prosecute any alcohol or drug abuse patient.[facility]In the event this information is protected by the Federal Confidentiality of Alcohol and Drug Abuse Patient Records regulations: The Federal rules restrict any use of the information to criminally investigate or prosecute any alcohol or drug abuse patient.[facility]In the event this information is protected by the Federal Confidentiality of Alcohol and Drug Abuse Patient Records regulations: The Federal rules restrict any use of the information to criminally investigate or prosecute any alcohol or drug abuse patient.[facility]In the event this information is protected by the Federal Confidentiality of Alcohol and Drug Abuse Patient Records regulations: The Federal rules restrict any use of the information to criminally investigate or prosecute any alcohol or drug abuse patient.[facility]In the event this information is protected by the Federal Confidentiality of Alcohol and Drug Abuse Patient Records regulations: The Federal rules restrict any use of the information to criminally investigate or prosecute any alcohol or drug abuse patient.[facility]In the event this information is protected by the Federal Confidentiality of Alcohol and Drug Abuse Patient Records regulations: The Federal rules restrict any use of the information to criminally investigate or prosecute any alcohol or drug abuse patient.[facility]In the event this information is protected by the Federal Confidentiality of Alcohol and Drug Abuse Patient Records regulations: The Federal rules restrict any use of the information to criminally investigate or prosecute any alcohol or drug abuse patient.[facility]In the event this information is protected by the Federal Confidentiality of Alcohol and Drug Abuse Patient Records regulations: The Federal rules restrict any use of the information to criminally investigate or prosecute any alcohol or drug abuse patient.[facility]In the event this information is protected by the Federal Confidentiality of Alcohol and Drug Abuse Patient Records regulations: The Federal rules restrict any use of the information to criminally investigate or prosecute any alcohol or drug abuse patient.[facility]In the event this information is protected by the Federal Confidentiality of Alcohol and Drug Abuse Patient Records regulations: The Federal rules restrict any use of the information to criminally investigate or prosecute any alcohol or drug abuse patient.[facility]In the event this information is protected by the Federal Confidentiality of Alcohol and Drug Abuse Patient Records regulations: The Federal rules restrict any use of the information to criminally investigate or prosecute any alcohol or drug abuse patient.[facility]In the event this information is protected by the Federal Confidentiality of Alcohol and Drug Abuse Patient Records regulations: The Federal rules restrict any use of the information to criminally investigate or prosecute any alcohol or drug abuse patient.[facility]In the event this information is protected by the Federal Confidentiality of Alcohol and Drug Abuse Patient Records regulations: The Federal rules restrict any use of the information to criminally investigate or prosecute any alcohol or drug abuse patient.[facility]In the event this information is protected by the Federal Confidentiality of Alcohol and Drug Abuse Patient Records regulations: The Federal rules restrict any use of the information to criminally investigate or prosecute any alcohol or drug abuse patient.[facility]In the event this information is protected by the Federal Confidentiality of Alcohol and Drug Abuse Patient Records regulations: The Federal rules restrict any use of the information to criminally investigate or prosecute any alcohol or drug abuse patient.[facility]In the event this information is protected by the Federal Confidentiality of Alcohol and Drug Abuse Patient Records regulations: The Federal rules restrict any use of the information to criminally investigate or prosecute any alcohol or drug abuse patient.[facility]In the event this information is protected by the Federal Confidentiality of Alcohol and Drug Abuse Patient Records regulations: The Federal rules restrict any use of the information to criminally investigate or prosecute any alcohol or drug abuse patient.[facility]In the event this information is protected by the Federal Confidentiality of Alcohol and Drug Abuse Patient Records regulations: The Federal rules restrict any use of the information to criminally investigate or prosecute any alcohol or drug abuse patient.[facility]In the event this information is protected by the Federal Confidentiality of Alcohol and Drug Abuse Patient Records regulations: The Federal rules restrict any use of the information to criminally investigate or prosecute any alcohol or drug abuse patient.[facility]In the event this information is protected by the Federal Confidentiality of Alcohol and Drug Abuse Patient Records regulations: The Federal rules restrict any use of the information to criminally investigate or prosecute any alcohol or drug abuse patient.[facility]In the event this information is protected by the Federal Confidentiality of Alcohol and Drug Abuse Patient Records regulations: The Federal rules restrict any use of the information to criminally investigate or prosecute any alcohol or drug abuse patient.[facility]In the event this information is protected by the Federal Confidentiality of Alcohol and Drug Abuse Patient Records regulations: The Federal rules restrict any use of the information to criminally investigate or prosecute any alcohol or drug abuse patient.[facility]In the event this information is protected by the Federal Confidentiality of Alcohol and Drug Abuse Patient Records regulations: The Federal rules restrict any use of the information to criminally investigate or prosecute any alcohol or drug abuse patient.[facility]In the event this information is protected by the Federal Confidentiality of Alcohol and Drug Abuse Patient Records regulations: The Federal rules restrict any use of the information to criminally investigate or prosecute any alcohol or drug abuse patient.[facility]In the event this information is protected by the Federal Confidentiality of Alcohol and Drug Abuse Patient Records regulations: The Federal rules restrict any use of the information to criminally investigate or prosecute any alcohol or drug abuse patient.[facility]In the event this information is protected by the Federal Confidentiality of Alcohol and Drug Abuse Patient Records regulations: The Federal rules restrict any use of the information to criminally investigate or prosecute any alcohol or drug abuse patient.[facility]In the event this information is protected by the Federal Confidentiality of Alcohol and Drug Abuse Patient Records regulations: The Federal rules restrict any use of the information to criminally investigate or prosecute any alcohol or drug abuse patient.[facility]In the event this information is protected by the Federal Confidentiality of Alcohol and Drug Abuse Patient Records regulations: The Federal rules restrict any use of the information to criminally investigate or prosecute any alcohol or drug abuse patient.[facility]In the event this information is protected by the Federal Confidentiality of Alcohol and Drug Abuse Patient Records regulations: The Federal rules restrict any use of the information to criminally investigate or prosecute any alcohol or drug abuse patient.[facility]In the event this information is protected by the Federal Confidentiality of Alcohol and Drug Abuse Patient Records regulations: The Federal rules restrict any use of the information to criminally investigate or prosecute any alcohol or drug abuse patient.[facility]In the event this information is protected by the Federal Confidentiality of Alcohol and Drug Abuse Patient Records regulations: The Federal rules restrict any use of the information to criminally investigate or prosecute any alcohol or drug abuse patient.[facility]In the event this information is protected by the Federal Confidentiality of Alcohol and Drug Abuse Patient Records regulations: The Federal rules restrict any use of the information to criminally investigate or prosecute any alcohol or drug abuse patient.[facility]In the event this information is protected by the Federal Confidentiality of Alcohol and Drug Abuse Patient Records regulations: The Federal rules restrict any use of the information to criminally investigate or prosecute any alcohol or drug abuse patient.[facility]In the event this information is protected by the Federal Confidentiality of Alcohol and Drug Abuse Patient Records regulations: The Federal rules restrict any use of the information to criminally investigate or prosecute any alcohol or drug abuse patient.[facility]In the event this information is protected by the Federal Confidentiality of Alcohol and Drug Abuse Patient Records regulations: The Federal rules restrict any use of the information to criminally investigate or prosecute any alcohol or drug abuse patient.[facility]In the event this information is protected by the Federal Confidentiality of Alcohol and Drug Abuse Patient Records regulations: The Federal rules restrict any use of the information to criminally investigate or prosecute any alcohol or drug abuse patient.[facility]In the event this information is protected by the Federal Confidentiality of Alcohol and Drug Abuse Patient Records regulations: The Federal rules restrict any use of the information to criminally investigate or prosecute any alcohol or drug abuse patient.[facility]In the event this information is protected by the Federal Confidentiality of Alcohol and Drug Abuse Patient Records regulations: The Federal rules restrict any use of the information to criminally investigate or prosecute any alcohol or drug abuse patient.[facility]In the event this information is protected by the Federal Confidentiality of Alcohol and Drug Abuse Patient Records regulations: The Federal rules restrict any use of the information to criminally investigate or prosecute any alcohol or drug abuse patient.[facility]In the event this information is protected by the Federal Confidentiality of Alcohol and Drug Abuse Patient Records regulations: The Federal rules restrict any use of the information to criminally investigate or prosecute any alcohol or drug abuse patient.[facility]In the event this information is protected by the Federal Confidentiality of Alcohol and Drug Abuse Patient Records regulations: The Federal rules restrict any use of the information to criminally investigate or prosecute any alcohol or drug abuse patient.[facility]In the event this information is protected by the Federal Confidentiality of Alcohol and Drug Abuse Patient Records regulations: The Federal rules restrict any use of the information to criminally investigate or prosecute any alcohol or drug abuse patient.[facility]In the event this information is protected by the Federal Confidentiality of Alcohol and Drug Abuse Patient Records regulations: The Federal rules restrict any use of the information to criminally investigate or prosecute any alcohol or drug abuse patient.[facility]In the event this information is protected by the Federal Confidentiality of Alcohol and Drug Abuse Patient Records regulations: The Federal rules restrict any use of the information to criminally investigate or prosecute any alcohol or drug abuse patient.[facility]In the event this information is protected by the Federal Confidentiality of Alcohol and Drug Abuse Patient Records regulations: The Federal rules restrict any use of the information to criminally investigate or prosecute any alcohol or drug abuse patient.[facility]In the event this information is protected by the Federal Confidentiality of Alcohol and Drug Abuse Patient Records regulations: The Federal rules restrict any use of the information to criminally investigate or prosecute any alcohol or drug abuse patient.[facility]In the event this information is protected by the Federal Confidentiality of Alcohol and Drug Abuse Patient Records regulations: The Federal rules restrict any use of the information to criminally investigate or prosecute any alcohol or drug abuse patient.[facility] HospitalIn the event this information is protected by the Federal Confidentiality of Alcohol and Drug Abuse Patient Records regulations: The Federal rules restrict any use of the information to criminally investigate or prosecute any alcohol or drug abuse patient.[facility] HospitalIn the event this information is protected by the Federal Confidentiality of Alcohol and Drug Abuse Patient Records regulations: The Federal rules restrict any use of the information to criminally investigate or prosecute any alcohol or drug abuse patient.[facility] HospitalIn the event this information is protected by the Federal Confidentiality of Alcohol and Drug Abuse Patient Records regulations: The Federal rules restrict any use of the information to criminally investigate or prosecute any alcohol or drug abuse patient.[facility] HospitalIn the event this information is protected by the Federal Confidentiality of Alcohol and Drug Abuse Patient Records regulations: The Federal rules restrict any use of the information to criminally investigate or prosecute any alcohol or drug abuse patient.[facility] HospitalIn the event this information is protected by the Federal Confidentiality of Alcohol and Drug Abuse Patient Records regulations: The Federal rules restrict any use of the information to criminally investigate or prosecute any alcohol or drug abuse patient.[facility] HospitalIn the event this information is protected by the Federal Confidentiality of Alcohol and Drug Abuse Patient Records regulations: The Federal rules restrict any use of the information to criminally investigate or prosecute any alcohol or drug abuse patient.[facility] HospitalIn the event this information is protected by the Federal Confidentiality of Alcohol and Drug Abuse Patient Records regulations: The Federal rules restrict any use of the information to criminally investigate or prosecute any alcohol or drug abuse patient.[facility] HospitalIn the event this information is protected by the Federal Confidentiality of Alcohol and Drug Abuse Patient Records regulations: The Federal rules restrict any use of the information to criminally investigate or prosecute any alcohol or drug abuse patient.[facility] HospitalIn the event this information is protected by the Federal Confidentiality of Alcohol and Drug Abuse Patient Records regulations: The Federal rules restrict any use of the information to criminally investigate or prosecute any alcohol or drug abuse patient.[facility] HospitalIn the event this information is protected by the Federal Confidentiality of Alcohol and Drug Abuse Patient Records regulations: The Federal rules restrict any use of the information to criminally investigate or prosecute any alcohol or drug abuse patient.[facility] HospitalIn the event this information is protected by the Federal Confidentiality of Alcohol and Drug Abuse Patient Records regulations: The Federal rules restrict any use of the information to criminally investigate or prosecute any alcohol or drug abuse patient.[facility] HospitalIn the event this information is protected by the Federal Confidentiality of Alcohol and Drug Abuse Patient Records regulations: The Federal rules restrict any use of the information to criminally investigate or prosecute any alcohol or drug abuse patient.[facility] HospitalIn the event this information is protected by the Federal Confidentiality of Alcohol and Drug Abuse Patient Records regulations: The Federal rules restrict any use of the information to criminally investigate or prosecute any alcohol or drug abuse patient.[facility] HospitalIn the event this information is protected by the Federal Confidentiality of Alcohol and Drug Abuse Patient Records regulations: The Federal rules restrict any use of the information to criminally investigate or prosecute any alcohol or drug abuse patient.[facility] HospitalIn the event this information is protected by the Federal Confidentiality of Alcohol and Drug Abuse Patient Records regulations: The Federal rules restrict any use of the information to criminally investigate or prosecute any alcohol or drug abuse patient.[facility] HospitalIn the event this information is protected by the Federal Confidentiality of Alcohol and Drug Abuse Patient Records regulations: The Federal rules restrict any use of the information to criminally investigate or prosecute any alcohol or drug abuse patient.[facility] HospitalIn the event this information is protected by the Federal Confidentiality of Alcohol and Drug Abuse Patient Records regulations: The Federal rules restrict any use of the information to criminally investigate or prosecute any alcohol or drug abuse patient.[facility] HospitalIn the event this information is protected by the Federal Confidentiality of Alcohol and Drug Abuse Patient Records regulations: The Federal rules restrict any use of the information to criminally investigate or prosecute any alcohol or drug abuse patient.[facility] HospitalIn the event this information is protected by the Federal Confidentiality of Alcohol and Drug Abuse Patient Records regulations: The Federal rules restrict any use of the information to criminally investigate or prosecute any alcohol or drug abuse patient.[facility] HospitalIn the event this information is protected by the Federal Confidentiality of Alcohol and Drug Abuse Patient Records regulations: The Federal rules restrict any use of the information to criminally investigate or prosecute any alcohol or drug abuse patient.[facility] HospitalIn the event this information is protected by the Federal Confidentiality of Alcohol and Drug Abuse Patient Records regulations: The Federal rules restrict any use of the information to criminally investigate or prosecute any alcohol or drug abuse patient.[facility] HospitalIn the event this information is protected by the Federal Confidentiality of Alcohol and Drug Abuse Patient Records regulations: The Federal rules restrict any use of the information to criminally investigate or prosecute any alcohol or drug abuse patient.[facility] HospitalIn the event this information is protected by the Federal Confidentiality of Alcohol and Drug Abuse Patient Records regulations: The Federal rules restrict any use of the information to criminally investigate or prosecute any alcohol or drug abuse patient.[facility] HospitalIn the event this information is protected by the Federal Confidentiality of Alcohol and Drug Abuse Patient Records regulations: The Federal rules restrict any use of the information to criminally investigate or prosecute any alcohol or drug abuse patient.[facility] HospitalIn the event this information is protected by the Federal Confidentiality of Alcohol and Drug Abuse Patient Records regulations: The Federal rules restrict any use of the information to criminally investigate or prosecute any alcohol or drug abuse patient.[facility] HospitalIn the event this information is protected by the Federal Confidentiality of Alcohol and Drug Abuse Patient Records regulations: The Federal rules restrict any use of the information to criminally investigate or prosecute any alcohol or drug abuse patient.[facility] HospitalIn the event this information is protected by the Federal Confidentiality of Alcohol and Drug Abuse Patient Records regulations: The Federal rules restrict any use of the information to criminally investigate or prosecute any alcohol or drug abuse patient.[facility] HospitalIn the event this information is protected by the Federal Confidentiality of Alcohol and Drug Abuse Patient Records regulations: The Federal rules restrict any use of the information to criminally investigate or prosecute any alcohol or drug abuse patient.[facility] HospitalIn the event this information is protected by the Federal Confidentiality of Alcohol and Drug Abuse Patient Records regulations: The Federal rules restrict any use of the information to criminally investigate or prosecute any alcohol or drug abuse patient.[facility] HospitalIn the event this information is protected by the Federal Confidentiality of Alcohol and Drug Abuse Patient Records regulations: The Federal rules restrict any use of the information to criminally investigate or prosecute any alcohol or drug abuse patient.[facility] HospitalIn the event this information is protected by the Federal Confidentiality of Alcohol and Drug Abuse Patient Records regulations: The Federal rules restrict any use of the information to criminally investigate or prosecute any alcohol or drug abuse patient.[facility] HospitalIn the event this information is protected by the Federal Confidentiality of Alcohol and Drug Abuse Patient Records regulations: The Federal rules restrict any use of the information to criminally investigate or prosecute any alcohol or drug abuse patient.[facility] HospitalIn the event this information is protected by the Federal Confidentiality of Alcohol and Drug Abuse Patient Records regulations: The Federal rules restrict any use of the information to criminally investigate or prosecute any alcohol or drug abuse patient.[facility] HospitalIn the event this information is protected by the Federal Confidentiality of Alcohol and Drug Abuse Patient Records regulations: The Federal rules restrict any use of the information to criminally investigate or prosecute any alcohol or drug abuse patient.[facility] HospitalIn the event this information is protected by the Federal Confidentiality of Alcohol and Drug Abuse Patient Records regulations: The Federal rules restrict any use of the information to criminally investigate or prosecute any alcohol or drug abuse patient.[facility] HospitalIn the event this information is protected by the Federal Confidentiality of Alcohol and Drug Abuse Patient Records regulations: The Federal rules restrict any use of the information to criminally investigate or prosecute any alcohol or drug abuse patient.[facility] HospitalIn the event this information is protected by the Federal Confidentiality of Alcohol and Drug Abuse Patient Records regulations: The Federal rules restrict any use of the information to criminally investigate or prosecute any alcohol or drug abuse patient.[facility] HospitalIn the event this information is protected by the Federal Confidentiality of Alcohol and Drug Abuse Patient Records regulations: The Federal rules restrict any use of the information to criminally investigate or prosecute any alcohol or drug abuse patient.[facility] HospitalIn the event this information is protected by the Federal Confidentiality of Alcohol and Drug Abuse Patient Records regulations: The Federal rules restrict any use of the information to criminally investigate or prosecute any alcohol or drug abuse patient.[facility] HospitalIn the event this information is protected by the Federal Confidentiality of Alcohol and Drug Abuse Patient Records regulations: The Federal rules restrict any use of the information to criminally investigate or prosecute any alcohol or drug abuse patient.[facility] HospitalIn the event this information is protected by the Federal Confidentiality of Alcohol and Drug Abuse Patient Records regulations: The Federal rules restrict any use of the information to criminally investigate or prosecute any alcohol or drug abuse patient.[facility] HospitalIn the event this information is protected by the Federal Confidentiality of Alcohol and Drug Abuse Patient Records regulations: The Federal rules restrict any use of the information to criminally investigate or prosecute any alcohol or drug abuse patient.[facility] HospitalIn the event this information is protected by the Federal Confidentiality of Alcohol and Drug Abuse Patient Records regulations: The Federal rules restrict any use of the information to criminally investigate or prosecute any alcohol or drug abuse patient.[facility] HospitalIn the event this information is protected by the Federal Confidentiality of Alcohol and Drug Abuse Patient Records regulations: The Federal rules restrict any use of the information to criminally investigate or prosecute any alcohol or drug abuse patient.[facility] HospitalIn the event this information is protected by the Federal Confidentiality of Alcohol and Drug Abuse Patient Records regulations: The Federal rules restrict any use of the information to criminally investigate or prosecute any alcohol or drug abuse patient.[facility] HospitalIn the event this information is protected by the Federal Confidentiality of Alcohol and Drug Abuse Patient Records regulations: The Federal rules restrict any use of the information to criminally investigate or prosecute any alcohol or drug abuse patient.[facility] HospitalIn the event this information is protected by the Federal Confidentiality of Alcohol and Drug Abuse Patient Records regulations: The Federal rules restrict any use of the information to criminally investigate or prosecute any alcohol or drug abuse patient.[facility] HospitalIn the event this information is protected by the Federal Confidentiality of Alcohol and Drug Abuse Patient Records regulations: The Federal rules restrict any use of the information to criminally investigate or prosecute any alcohol or drug abuse patient.[facility] HospitalIn the event this information is protected by the Federal Confidentiality of Alcohol and Drug Abuse Patient Records regulations: The Federal rules restrict any use of the information to criminally investigate or prosecute any alcohol or drug abuse patient.[facility] HospitalIn the event this information is protected by the Federal Confidentiality of Alcohol and Drug Abuse Patient Records regulations: The Federal rules restrict any use of the information to criminally investigate or prosecute any alcohol or drug abuse patient.[facility] HospitalIn the event this information is protected by the Federal Confidentiality of Alcohol and Drug Abuse Patient Records regulations: The Federal rules restrict any use of the information to criminally investigate or prosecute any alcohol or drug abuse patient.[facility] Reason for Visit (unrecogniz ed section and content) Reason Comments Physical Therapy Specialty Diagnoses / Procedures Referred By Bhupinder barreto Referred To Contact [facility] Diagnoses Subarachnoid hemorrhage (HCC) Procedures CONSULT TO PHYSICAL THERAPY PHYSICAL THERAPY EVALUATION HIGH COMPLEX 45 MINS Iris Deleon PA-C [address] [place] [address] [facility] [address] [address] Referral ID Status Reason Start Date Expiration Date Visits Requested Visits Authorized [id number] Authorized PCP Requested Referral Auto-Generate d Referral 10/12/2023 10/04/2024 99 99 Reason Onset Date Comments Refill Request 11/29/2021 Reason Comments Established Patient Reason Comments Opened In Error Reason Onset Date Comments Refill Request 02/10/2022 Reason Comments Primary Open Angle Glaucoma Follow Up Power wick here as directed for intraocular pressure [...] CT HEAD/BRAIN W/O CONTRAST MATERIAL Dulce Vallejo, PAJuan CarlosC [address] [place] [address] [place] [address] Referral ID Status Reason Start Date Expiration Date V isits Requested Visits Authorized [id number] Closed Auto-Generate d Referral 10/03/2023 11/01/2024 1 [...] injury Procedures CONSULT TO SPEECH THERAPY OFFICE/OUTPATIENT NEW HIGH MDM 60 MINUTES Ailyn Bonner, IT DIRECTOR.TOY CONSULTANT [address] [place] [address] [facility] [place] [address] [place] [address] Referral ID Status Reason Start Date Expiration Date Visits Requested Visits Authorized [id number] Authorized Auto-Generat ed Referral 01/06/2024 01/05/2025 99 [...] results Specialty Diagnoses / Procedures Referred By Bhupinder barreto Referred To Contact Diagnoses Sleep apnea, unspecified type Fatigue, unspecified type Procedures CONSULT TO SLEEP MEDICINE - ADULT OFFICE/OUTPATIENT NEW HIGH MDM 60 MINUTES Ailyn Bonner, IT DIRECTOR.TOY CONSULTANT [address] [place] [address] Referral ID Status Reason Start Date Expiration Date V isits Requested Visits Authorized [id number] Closed PCP Requested Referral 01/06/2024 01/05/2025 1 [...] Oral thrush Procedures CONSULT TO ENT OFFICE/OUTPATIENT NEW HIGH MDM 60 MINUTES Dia Lopez, IT DIRECTOR.TOY CONSULTANT [address] [place] [address] Referral ID Status Reason Start Date Expiration Date V isits Requested Visits Authorized [id number] Closed PCP Requested Referral 05/13/2024 05/13/2025 1 1 Reason Comments Orders Reason Comments Follow Up From PT Reason Comments Patient Update Reason Comments faxed orders to [facility]- polysomnogram Reason Onset Date Comments Refill [...] n Specialty Diagnoses / Procedures Referred By Contac t Referred To Contact Gerontology Diagnoses Fatigue, unspecified type 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 lower extremity pain Physical debility Procedures CONSULT TO GERIATRICS OFFICE/OUTPATIENT [facility] 60 MINUTES Ken Contreras MD [address] [place] [address] Phone: tel: fax: Referral ID Status Reason Start Date Expiration Date V isits Requested Visits Authorized [id number] Closed PCP Requested Referral 12/01/2024 12/01/2025 1 1 Reason Comments New Pain Specialty Diagnoses / Procedures Referred By Contac t Referred To Contact Orthopedics Diagnoses Hip pain, left Procedures CONSULT TO ORTHOPAEDICS OFFICE/OUTPATIENT [facility] 60 MINUTES Ken Contreras MD [address] [place] [address] Phone: tel: fax: Referral ID Status Reason Start Date Expiration Date V isits Requested Visits Authorized [id number] Closed PCP Requested Referral 11/29/2024 11/29/2025 1 1 Reason Comments Fax Request Reason Comments Depression Hip Pain Shortness of Breath Reason Comments Request for records Reason Comments Spirometry Specialty Diagnoses / Procedures Referred By Contac t Referred To [facility] Diagnoses MARTINES (dyspnea on exertion) Procedures SPIROMETRY - BASELINE AND POST DILATOR BRNCDILAT RSPSE SPMTRY PRE&POST-BRNCDILAT Cami Clark MD [address] [place] [address] Phone: tel: fax: [facility] [place] [address] [place] [address] Referral ID Status Reason Start Date Expiration Date V isits Requested Visits Authorized [id number] Closed Auto-Generate d Referral 01/25/2025 02/24/2026 1 1 Specialty Diagnoses / Procedures Referred By Contac t Referred To [facility] Diagnoses MARTINES (dyspnea on exertion) Procedures LUNG VOLUMES Cami Mars MD [address] [place] [address] Phone: tel: fax: [facility] [place] [address] [place] [address] Referral ID Status Reason Start Date Expiration Date V isits Requested Visits Authorized [id number] Closed Auto-Generate d Referral 01/25/2025 02/24/2026 1 1 Reason Comments [facility] Scheduling dept requesting records Reason Comments Head Injury Reason Comments 4 week follow-up Reason Onset Date Comments Refill Request 03/04/2025 Reason Comments Constipation Reason Comments New Patient Reason Comments Cough Cough, fever LIGHT and sweating x 3 days Reason Onset Date Comments Results 03/28/2025 Reason Onset Date Comments Refill Request 04/06/2025 Reason Comments Refill Request Reason Comments Established Patient Follow-Up bronchiectasis Asthma Care Teams (unrecognized sec tion and content) Industrial Engineering Director Relationship Specialty Start Date End Date Ken Contreras MD [address] [place], [place] [id number] PCP - General Internal Medicine 05/01/17 Marquise Javed [address] MCGRATH [address] [place] [phone] Cardiology 05/01/21 Industrial Engineering Director Relationship Specialty Start Date End Date Ken Contreras MD [address] [place], [place] [id number] PCP - General Internal Medicine 05/01/17 Marquise Javed [address]Rianna MCGRATH [address] [place] [phone] Cardiology 05/01/21 Industrial Engineering Director Relationship Specialty Start Date End Date Ken Contreras MD [address] [place], [place] [id number] PCP - General Internal Medicine 05/01/17 Marquise Javed [address] [place] [address] Cardiology 05/01/21 Industrial Engineering Director Relationship Specialty Start Date End Date Ken Contreras MD [address] [facility] [place] [address] PCP - General Internal Medicine 05/01/17 Marquise Javed [address] [place] [address] Cardiology 05/01/21 Industrial Engineering Director Relationship Specialty Start Date End Date Ken Contreras MD [address] [facility] [place] [address] PCP - General Internal Medicine 05/01/17 Marquise Javed [address] [place] [address] Cardiology 05/01/21 Industrial Engineering Director Relationship Specialty Start Date End Date Ken Contreras MD [address] [facility] [place] [address] PCP - General Internal Medicine 05/01/17 Marquise Javed [address] [place] [address] Cardiology 05/01/21 Industrial Engineering Director Relationship Specialty Start Date End Date Ken Contreras MD [address] [facility] [place] [address] PCP - General Internal Medicine 05/01/17 Marquise Javed [address] [place] [address] Cardiology 05/01/21 Industrial Engineering Director Relationship Specialty Start Date End Date Ken Contreras MD [address] [facility] [place] [address] PCP - General Internal Medicine 05/01/17 [address]quise Javed [address] [place] [address] Cardiology 05/01/21 Industrial Engineering Director Relationship Specialty Start Date End Date Ken Contreras MD [address] [facility] [place] [address] PCP - General Internal Medicine 05/01/17 Marquise Javed [address] [place] [address] Cardiology 05/01/21 Industrial Engineering Director Relationship Specialty Start Date End Date Ken Contreras MD [address] [facility] [place] [address] PCP - General Internal Medicine 05/01/17 [address]quise Javed [address] [place] [address] Cardiology 05/01/21 Industrial Engineering Director Relationship Specialty Start Date End Date Ken Contreras MD [address] [facility] [place] [address] PCP - General Internal Medicine 05/01/17 [address]quise Javed [address] [place] [address] Cardiology 05/01/21 Industrial Engineering Director Relationship Specialty Start Date End Date Ken Contreras MD [address] [facility] [place] [address] PCP - General Internal Medicine 05/01/17 Marquise Javed [address] [place] [address] Cardiology 05/01/21 Industrial Engineering Director Relationship Specialty Start Date End Date Ken Contreras MD [address] [facility] [place] [address] PCP - General Internal Medicine 05/01/17 Marquise Javed [address] [place] [address] Cardiology 05/01/21 Industrial Engineering Director Relationship Specialty Start Date End Date Ken Contreras MD [address] [facility] [place] [address] PCP - General Internal Medicine 05/01/17 Marquise Javed [address] [place] [address] Cardiology 05/01/21 Industrial Engineering Director Relationship Specialty Start Date End Date Ken Contreras MD [address] [facility] [place] [address] PCP - General Internal Medicine 05/01/17 Marquise Javed [address] [place] [address] Cardiology 05/01/21 Team Status: Active Member Role [...] Dr. Arturo Greer MD Emergency Provider Active Industrial Engineering Director Relationship Specialty Start Date End Date Ken Contreras MD [address] [facility] [place] [address] PCP - General Internal Medicine 05/01/17 Marquise Javed [address] [phone] Cardiology 05/01/21 Industrial Engineering Director Relationship Specialty Start Date End Date Ken Contreras MD [address] [place], [place] [id number] PCP - General Internal Medicine 05/01/17 Marquise Javed [address] [address] Cardiology 05/01/21 Team Status: Inactive Member Role Status Dates Dr. Ken Contreras MD Primary Care Provider, Refer ring Provider Active Dr. Jaswant Miller DO Attending Provider Active Team Status: Inactive Member Role Status Dates Dr. Ken Contreras MD Primary Care Provider, Refer ring Provider Active Amanda Daugherty BEATER LEAD, BEATER LEAD-C Attending Provider Active Team Status: Inactive Member Role Status Dates Dr. Ken Contreras MD Primary Care Provider Active Amanda Daugherty BEATER LEAD, BEATER LEAD-C Attending Provider, Referring P suzette Active Team Status: Inactive Member Role Status Dates Dr. Ken Contreras MD Primary Care Provider Active Dr. Janett Her MD Emergency Provider Active Industrial Engineering Director Relationship Specialty Start Date End Date Ken Contreras MD [address] [place], [place] [address] PCP - General Internal Medicine 05/01/17 Marquise Javed [address] [phone] Cardiology 05/01/21 Team Status: Inactive Member Role Status Dates Dr. Ken Contreras MD Primary Care Provider Active Dr. Janett Her MD Attending Provider, Emergency Provider Active Team Status: Inactive Member Role Status Dates Dr. Ken Contreras MD Primary Care Provider Active Dr. Teri Lozano , DO Emergency Provider Active Industrial Engineering Director Relationship Specialty Start Date End Date Ken Contreras MD [address] [place] [address] PCP - General Internal Medicine 05/01/17 Marquise Javed [address] [phone] Cardiology 05/01/21 Industrial Engineering Director Relationship Specialty Start Date End Date Ken Contreras MD [address] [place] [address] PCP - General Internal Medicine 05/01/17 Marquise Javed 176 [facility] [address] [phone] Cardiology 05/01/21 Industrial Engineering Director Relationship Specialty Start Date End Date Ken Contreras MD [address] [place] [address] PCP - General Internal Medicine 05/01/17 Marquise Javde MD [address] [address] Cardiology 05/01/21 Industrial Engineering Director Relationship Specialty Start Date End Date Ken Contreras MD [address] [place] [address] PCP - General Internal Medicine 05/01/17 Marquise Javed MD [address] [address] Cardiology 05/01/21 Team Status: Inactive Member Role Status Dates Dr. Ken Contreras MD Primary Care Provider, Refer ring Provider Active Taylor Arce Attending Provider Active Industrial Engineering Director Relationship Specialty Start Date End Date Ken Contreras MD [address] [facility] [place] [address] PCP - General Internal Medicine 05/01/17 Marquise Javed MD [address] [place] [address] Cardiology 05/01/21 Industrial Engineering Director Relationship Specialty Start Date End Date Ken Contreras MD [address] [facility] [place] [address] PCP - General Internal Medicine 05/01/17 Marquise Javed MD [address] [place] [address] Cardiology 05/01/21 Maddie Raphael, RN [address] [place] [address] Primary Care Nurse Staff Industrial 10/06/23 Industrial Engineering Director Relationship Specialty Start Date End Date Ken Contreras MD [address] [facility] [place] [address] PCP - General Internal Medicine 05/01/17 Marquise Javed MD [address] [place] [address] Cardiology 05/01/21 Maddie Raphael, DIONTE [address] [place], [place] [id number] Primary Care Nurse Staff Industrial 10/06/23 Industrial Engineering Director Relationship Specialty Start Date End Date Ken Contreras MD [address] [facility] [place] [address] PCP - General Internal Medicine 05/01/17 Marquise Javed MD [address] [place] [address] Cardiology 05/01/21 Maddie Raphael, RN [address] [place], [place] [id number] Primary Care Nurse Staff Industrial 10/06/23 Industrial Engineering Director Relationship Specialty Start Date End Date Ken Contreras MD [address] [facility] [place] [address] PCP - General Internal Medicine 05/01/17 Marquise Javed MD [address] [place] [address], [place] [address] Cardiology 05/01/21 Maddie Raphael, RN [address] [place] [address] Primary Care Nurse Staff Industrial 10/06/23 Industrial Engineering Director Relationship Specialty Start Date End Date Ken Contreras MD [address] [facility] [place] [address] PCP - General Internal Medicine 05/01/17 Marquise Javed MD [address] [place] [address] Cardiology 05/01/21 Maddie Raphael, RN [address] [place], [place] [id number] Primary Care Nurse Staff Industrial 10/06/23 11/04/23 Industrial Engineering Director Relationship Specialty Start Date End Date Ken Contreras MD [address] [facility] [place] [address] PCP - General Internal Medicine 05/01/17 Marquise Javed MD [address] [place] [address], [place] [address] Cardiology 05/01/21 Maddie Raphael, DIONTE [address] [place] [address] Primary Care Nurse Staff Industrial 10/06/23 11/04/23 Industrial Engineering Director Relationship Specialty Start Date End Date Ken Contreras MD [address] [facility] [place] [address] PCP - General Internal Medicine 05/01/17 Marquise Javed MD [address] [place] [address], [place] [address] Cardiology 05/01/21 Industrial Engineering Director Relationship Specialty Start Date End Date Ken Contreras MD [address] [facility] [place] [address] PCP - General Internal Medicine 05/01/17 Marquise Javed MD [address] [place] [address], [place] [address] Cardiology 05/01/21 Industrial Engineering Director Relationship Specialty Start Date End Date Ken Contreras MD [address] [place] [address] PCP - General Internal Medicine 05/01/17 Marquise Javed MD [address] [place] [address], [place] [address] Cardiology 05/01/21 Industrial Engineering Director Relationship Specialty Start Date End Date Ken Contreras MD [address] [facility] [place] [address] PCP - General Internal Medicine 05/01/17 Maqruise Javed MD [address] [place] [address] Cardiology 05/01/21 Industrial Engineering Director Relationship Specialty Start Date End Date Ken Contreras MD [address] [place] [address] PCP - General Internal Medicine 05/01/17 Marquise Javed MD [address] [address] Cardiology 05/01/21 Industrial Engineering Director Relationship Specialty Start Date End Date Ken Contreras MD [address] [place] [address] PCP - General Internal Medicine 05/01/17 Marquise Javed MD [address] [address] Cardiology 05/01/21 Industrial Engineering Director Relationship Specialty Start Date End Date Ken Contreras MD [address] [place] [address] PCP - General Internal Medicine 05/01/17 Marquise Javed MD [address] [address] Cardiology 05/01/21 Industrial Engineering Director Relationship Specialty Start Date End Date Ken Contreras MD [address] [place] [address] PCP - General Internal Medicine 05/01/17 Marquise Javed MD [address] [address] Cardiology 05/01/21 Industrial Engineering Director Relationship Specialty Start Date End Date Ken Contreras MD [address] [place] [address] PCP - General Internal Medicine 05/01/17 Marquise Javed MD [address] [address] Cardiology 05/01/21 Industrial Engineering Director Relationship Specialty Start Date End Date Ken Contreras MD [address] [place] [address] PCP - General Internal Medicine 05/01/17 Marquise Javed MD [address] [address] Cardiology 05/01/21 Industrial Engineering Director Relationship Specialty Start Date End Date Ken Contreras MD [address] [place] [address] PCP - General Internal Medicine 05/01/17 Marquise Javed MD [address] [place] [address] Cardiology 05/01/21 Industrial Engineering Director Relationship Specialty Start Date End Date Ken Contreras MD [address] [place] [address] PCP - General Internal Medicine 05/01/17 Marquise Javed MD [address] [place] [address] Cardiology 05/01/21 Industrial Engineering Director Relationship Specialty Start Date End Date Ken Contreras MD [address] [place] [address] PCP - General Internal Medicine 05/01/17 Marquise Javed MD [address] [address] Cardiology 05/01/21 Industrial Engineering Director Relationship Specialty Start Date End Date Ken Contreras MD [address] [place] [address] PCP - General Internal Medicine 05/01/17 Marquise Javed MD [address] [address] Cardiology 05/01/21 Industrial Engineering Director Relationship Specialty Start Date End Date Ken Contreras MD [address] [place] [address] PCP - General Internal Medicine 05/01/17 Marquise Javed MD [address] [place] [address] Cardiology 05/01/21 Industrial Engineering Director Relationship Specialty Start Date End Date Ken Contreras MD [address] [facility] [place] [address] PCP - General Internal Medicine 05/01/17 Marquise Javed MD [address] [place] [address] Cardiology 05/01/21 Industrial Engineering Director Relationship Specialty Start Date End Date Ken Contreras MD [address] [facility] [place] [address] PCP - General Internal Medicine 05/01/17 Marquise Javed MD [address] [place] [address] Cardiology 05/01/21 Industrial Engineering Director Relationship Specialty Start Date End Date Ken Contreras MD [address] [facility] [place] [address] PCP - General Internal Medicine 05/01/17 Marquise Javed MD [address] [place] [address] Cardiology 05/01/21 Industrial Engineering Director Relationship Specialty Start Date End Date Ken Contreras MD [address] [place] [address] PCP - General Internal Medicine 05/01/17 Marquise Javed MD [address] [address] Cardiology 05/01/21 Dia Lopez, IT DIRECTOR.TOY CONSULTANT [address] [facility] [place] [address] [employer] Radio Technician Internal Medicine 08/15/24 Industrial Engineering Director Relationship Specialty Start Date End Date Ken Contreras MD [address] [facility] [place] [address] PCP - General Internal Medicine 05/01/17 Marquise Javed MD [address] [place] [address] Cardiology 05/01/21 Dia Lopez, IT DIRECTOR.TOY CONSULTANT [address] [facility] [place] [address] [employer] Radio Technician Internal Medicine 08/15/24 Industrial Engineering Director Relationship Specialty Start Date End Date Ken Contreras MD [address] [facility] [place] [address] PCP - General Internal Medicine 05/01/17 Marquise Javed MD [address] [place] [address] Cardiology 05/01/21 Dia Lopez, IT DIRECTOR.TOY CONSULTANT [address] [facility] [place] [address] [employer] Radio Technician Internal Medicine 08/15/24 Industrial Engineering Director Relationship Specialty Start Date End Date Ken Contreras MD [address] [facility] [place] [address] PCP - General Internal Medicine 05/01/17 Marquise Javed MD [address] [place] [address] Cardiology 05/01/21 Dia Lopez, IT DIRECTOR.TOY CONSULTANT [address] [place] [address] [employer] Radio Technician Internal Medicine 08/15/24 Industrial Engineering Director Relationship Specialty Start Date End Date Ken Contreras MD [address] [place] [address] PCP - General Internal Medicine 05/01/17 Marquise Javed MD [address] [place] [address] Cardiology 05/01/21 Dia Lopez, IT DIRECTOR.TOY CONSULTANT [address] [facility] [place] [address] [employer] Radio Technician Internal Medicine 08/15/24 Industrial Engineering Director Relationship Specialty Start Date End Date Ken Contreras MD [address] [place] [address] PCP - General Internal Medicine 05/01/17 Marquise Javed MD [address] [place] [address] Cardiology 05/01/21 Dia Lopez, IT DIRECTOR.TOY CONSULTANT [address] [facility] [place] [place] [address] [facility] Internal Medicine 08/15/24 Industrial Engineering Director Relationship Specialty Start Date End Date Ken Contreras MD [address] [place] [address] PCP - General Internal Medicine 05/01/17 Marquise Javed MD [address] [place] [address] Cardiology 05/01/21 Dia Lopez, IT DIRECTOR.TOY CONSULTANT [address] [facility] [place] [address] [employer] Radio Technician Internal Medicine 08/15/24 Najma John, soap boilerSupervisor Partial Denture Department 11/01/24 Industrial Engineering Director Relationship Specialty Start Date End Date Ken Contreras MD [address] [facility] [place] [address] PCP - General Internal Medicine 05/01/17 Marquise Javed MD [address] [place] [address] Cardiology 05/01/21 Dia Lopez, IT DIRECTOR.TOY CONSULTANT [address] [facility] [place] [address] [employer] Radio Technician Internal Medicine 08/15/24 Najma John soap boilerSupervisor Partial Denture Department 11/01/24 Industrial Engineering Director Relationship Specialty Start Date End Date Ken Contreras MD [address] [facility] [place] [address] PCP - General Internal Medicine 05/01/17 Marquise Javed MD [address] [place] [address] Cardiology 05/01/21 Dia Lopez, IT DIRECTOR.TOY CONSULTANT [address] [facility] [place] [address] [employer] Radio Technician Internal Medicine 08/15/24 Najma John, soap boilerSupervisor Partial Denture Department 11/01/24 Industrial Engineering Director Relationship Specialty Start Date End Date Ken Contreras MD [address] [facility] [place] [address] PCP - General Internal Medicine 05/01/17 Marquise Javed MD [address] [place] [address] Cardiology 05/01/21 Dia Lopez, IT DIRECTOR.TOY CONSULTANT [address] [facility] [place] [address] [employer] Radio Technician Internal Medicine 08/15/24 Najma John soap boilerSupervisor Partial Denture Department 11/01/24 Industrial Engineering Director Relationship Specialty Start Date End Date Ken Contreras MD [address] [facility] [place] [address] PCP - General Internal Medicine 05/01/17 Marquise Javed MD [address] [place] [address] Cardiology 05/01/21 Dia Lopez, IT DIRECTOR.TOY CONSULTANT [address] [facility] [place] [address] [employer] Radio Technician Internal Medicine 08/15/24 Najma John, soap boilerSupervisor Partial Denture Department 11/01/24 Team Status: Active Member Role Status [...] End: November 11, 2024 Latonya STEVE PA Referring Provider Active Start: November 11, 2024 End: November 11, 2024 Industrial Engineering Director Relationship Specialty Start Date End Date Ken Contreras MD [address] [facility] [place] [address] PCP - General Internal Medicine 05/01/17 Marquise Javed MD [address] [place] [address] Cardiology 05/01/21 Dia Lopez, IT DIRECTOR.TOY CONSULTANT [address] [facility] [place] [address] [employer] Radio Technician Internal Medicine 08/15/24 Najma John, soap boilerSupervisor Partial Denture Department 11/01/24 Industrial Engineering Director Relationship Specialty Start Date End Date Ken Contreras MD [address] [facility] [place] [address] PCP - General Internal Medicine 05/01/17 Marquise Javed MD [address] [place] [address] Cardiology 05/01/21 Dia Lopez, IT DIRECTOR.TOY CONSULTANT [address] [facility] [place] [address] [employer] Radio Technician Internal Medicine 08/15/24 Najma John, soap boilerSupervisor Partial Denture Department 11/01/24 Industrial Engineering Director Relationship Specialty Start Date End Date Ken Contreras MD [address] [facility] [place] [address] PCP - General Internal Medicine 05/01/17 Marquise Javed MD [address] [place] [address] Cardiology 05/01/21 Dia Lopez, IT DIRECTOR.TOY CONSULTANT [address] [facility] [place] [address] [employer] Radio Technician Internal Medicine 08/15/24 Najma John soap boilerSupervisor Partial Denture Department 11/01/24 Industrial Engineering Director Relationship Specialty Start Date End Date Ken Contreras MD [address] [facility] [place] [address] PCP - General Internal Medicine 05/01/17 Marquise Javed MD [address] [place] [address] Cardiology 05/01/21 Dia Lopez, IT DIRECTOR.TOY CONSULTANT [address] [facility] [place] [place] [address] [employer] Radio Technician Internal Medicine 08/15/24 Najma John RN Supervisor Partial Denture Department 11/01/24 Industrial Engineering Director Relationship Specialty Start Date End Date Ken Contreras MD [address] [facility] [place] [address] PCP - General Internal Medicine 05/01/17 Marquise Javed MD [address] [place] [address] Cardiology 05/01/21 Dia Lopez, IT DIRECTOR.TOY CONSULTANT [address] [facility] [place] [address] [employer] Radio Technician Internal Medicine 08/15/24 Najma John soap boilerSupervisor Partial Denture Department 11/01/24 Industrial Engineering Director Relationship Specialty Start Date End Date Ken Contreras MD [address] [facility] [place] [address] PCP - General Internal Medicine 05/01/17 Marquise Javed MD [address] [place] [address] Cardiology 05/01/21 Dia Lopez, IT DIRECTOR.TOY CONSULTANT [address] [facility] [place] [address] [employer] Radio Technician Internal Medicine 08/15/24 Najma John RN Supervisor Partial Denture Department 11/01/24 Industrial Engineering Director Relationship Specialty Start Date End Date Ken Contreras MD [address] [facility] [place] [address] PCP - General Internal Medicine 05/01/17 Marquise Javed MD [address] [place] [address] Cardiology 05/01/21 Dia Lopez, IT DIRECTOR.TOY CONSULTANT [address] [facility] [place] [address] [employer] Radio Technician Internal Medicine 08/15/24 Industrial Engineering Director Relationship Specialty Start Date End Date Ken Contreras MD [address] [facility] [place] [address] PCP - General Internal Medicine 05/01/17 Marquise Javed MD [address] [place] [address] Cardiology 05/01/21 Dia Lopez, IT DIRECTOR.TOY CONSULTANT [address] [place] [address] [employer] Radio Technician Internal Medicine 08/15/24 Industrial Engineering Director Relationship Specialty Start Date End Date Ken Contreras MD [address] [place] [address] PCP - General Internal Medicine 05/01/17 Marquise Javed MD [address] [facility] [address] [place] [address] Cardiology 05/01/21 Dia Lopez, IT DIRECTOR.TOY CONSULTANT [address] [place] [address] [facility] Internal Medicine 08/15/24 Industrial Engineering Director Relationship Specialty Start Date End Date Ken Contreras MD [address] [place] [address] PCP - General Internal Medicine 05/01/17 Marquise Javed MD [address] [address] Cardiology 05/01/21 Dia Lopez, IT DIRECTOR.TOY CONSULTANT [address] [place] [address] [facility] Internal Medicine 08/15/24 Team Status: Inactive Member [...] February 15, 2025 End: February 15, 2025 Industrial Engineering Director Relationship Specialty Start Date End Date Ken Contreras MD [address] [place] [address] PCP - General Internal Medicine 05/01/17 Marquise Javed MD [address] [address] Cardiology 05/01/21 Dia Lopez, IT DIRECTOR.TOY CONSULTANT [address] [place] [address] [employer] Radio Technician Internal Medicine 08/15/24 Team Status: Active Member Role/Relationship Status Dates Dr. Ken Contreras MD Primary Care Provider Active Team Status: Inactive Member Role/Relationship Status Dates Dr. Ken Contreras MD Primary Care Provider Active Start: December 23, 2024 End: December 23, 2024 Dr. Zane Mcpherson MD Attending Provider Active S tart: December 23, 2024 End: December 23, 2024 Team Status: Inactive Member Role/Relationship Status Dates Dr. Ken Contreras MD Primary Care Provider Active Start: February 15, 2025 End: February 15, 2025 Dr. Av Valencia MD Attending Provider Active Sta rt: February 15, 2025 End: February 15, 2025 Dr. Av Valencia MD Referring Provider Active Sta rt: February 15, 2025 End: February 15, 2025 Dr. Av Valencia MD Emergency Provider Active Sta rt: February 15, 2025 End: February 15, 2025 Team Status: Inactive Member Role/Relationship Status Dates Dr. Ken Contreras MD Primary Care Provider Active Start: March 08, 2025 End: March 08, 2025 Dr. Ken Contreras MD Attending Provider Active Start: March 08, 2025 End: March 08, 2025 Dr. Ken Contreras MD Referring Provider Active Start: March 08, 2025 End: March 08, 2025 Team Status: Active Member Role/Relationship Status Dates Dr. Kne Contreras MD Primary Care Provider Active Start: March 08, 2025 Dr. Ken Contreras MD Referring Provider Active Start: March 08, 2025 Dr. Ken Contreras MD Other Provider Active Start: March 08, 2025 Dr. Zane Mcpherson MD Attending Provider Active S tart: March 08, 2025 Industrial Engineering Director Relationship Specialty Start Date End Date Ken Contreras MD [address] [place], [place] [address] PCP - General Internal Medicine 05/01/17 Marquise Javed MD [address] [id number] Cardiology 05/01/21 Dia Lopez, IT DIRECTOR.[facility] [address] [place], [place] [address] [employer] Radio Technician Internal Medicine 08/15/24 Team Status: Inactive Member Role/Relationship Status Dates Dr. Ken Contreras MD Primary Care Provider Active Start: March 07, 2025 Dr. Christi Hansen MD Attending Provider Active Start: March 07, 2025 Team Status: Inactive Member Role/Relationship Status Dates Dr. Ken Contreras MD Primary Care Provider Active Start: March 08, 2025 End: March 08, 2025 Dr. Ken Contreras MD Attending Provider Active Start: March 08, 2025 End: March 08, 2025 Dr. Ken Contreras MD Referring Provider Active Start: March 08, 2025 End: March 08, 2025 Team Status: Active Member Role/Relationship Status Dates Dr. Ken Contreras MD Primary Care Provider Active Start: March 08, 2025 Dr. Ken Contreras MD Referring Provider Active Start: March 08, 2025 Dr. Ken Contreras MD Other Provider Active Start: March 08, 2025 Dr. Zane Mcpherson MD Attending Provider Active S tart: March 08, 2025 Team Status: Inactive Member Role/Relationship Status Dates Dr. Ken Contreras MD Primary Care Provider Active Start: March 24, 2025 End: March 24, 2025 Dr. Zane Mcpherson MD Attending Provider Active S tart: March 24, 2025 End: March 24, 2025 Team Status: Inactive Member Role/Relationship Status Dates Dr. Ken Contreras MD Primary Care Provider Active Start: March 31, 2025 End: March 31, 2025 Dr. Ken Contreras MD Referring Provider Active Start: March 31, 2025 End: March 31, 2025 Latonya STEVE, PA Attending Provider Active Start: March 31, 2025 End: March 31, 2025 Industrial Engineering Director Relationship Specialty Start Date End Date Ken Contreras MD [address] [place], [place] [address] PCP - General Internal Medicine 05/01/17 Marquise Javed MD [address] [id number] Cardiology 05/01/21 Dia Lopez, IT DIRECTOR.TOY CONSULTANT [address] [place], [place] [address] [employer] Radio Technician Internal Medicine 08/15/24 Goals (unrecognized section and [...] section and content) DATE CREATED AUTHOR 01/30/2024 [facility] DATE CREATED AUTHOR AUTHOR'S ORGANIZ ATION 06/08/2024 [facility] DATE CREATED AUTHOR AUTHOR'S ORGANIZ ATION 04/04/2025 [facility] DATE CREATED AUTHOR AUTHOR'S ORGANIZ ATION 04/13/2025 [facility] FOR RECORDS PERTAINING TO PATIENTS WHO [...] BE BASED ON THE PRIMARY CLINICAL RECORDS. [employer] [facility]. provides no warranty or guarantee of the accuracy or completeness of information in this document.
[2025-04-16 20:45] VITALS: BP 149/77; PULSE 63; RESP 18; O2SAT 93
--- NOTE | 2025-04-16 21:01 | CT_ITS ---
PROCEDURE: BRAIN/HEAD WITHOUT CONTRAST 04/16/2025 REASON FOR EXAM: HEAD INJURY TECHNIQUE: BRAIN/HEAD WITHOUT CONTRAST Coronal and Sagittal reconstruction series were provided. One or more dose reduction techniques were used (e.g., Automated exposure control, adjustment of the mA and/or kV according to patient size, use of iterative reconstruction technique. COMPARISON: CT head 02/15/2025 FINDINGS: There is no extra-axial or intra-axial intracranial hemorrhage. No mass effect or midline shift is seen. Generalized intracranial volume loss and findings compatible with chronic microvascular white matter ischemia. There is normal mcdonough-white matter differentiation. The posterior fossa is grossly unremarkable. The skull is unremarkable. Visualized paranasal sinuses are clear. The mastoid air cells show normal translucency. CT/Brain/Head without Contrast IMPRESSION: 1. No intracranial hemorrhage. No mass effect or midline shift. 2. 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 [facility]
--- NOTE | 2025-04-16 21:04 | ED.VIS.FALL ---
HPI HPI - Fall History of Present Illness Chief Complaint: Fall Informant: patient Occured/Mechanism Occurred: Today Mechanism/Context: Yes same level fall and Yes cannot recall fall Pain/Injury Location: Occipital scalp Pain Location: head Quality of Pain: Aching Worsened by: Nothing Relieved by: Nothing Associated Symptoms Associated Symptoms: Positive for Loss of consciousness and Amnesia; Negative for Parasthesias or Weakness Length of loss of consciousness: Few seconds Narrative Narrative: Patient presents after a fall that occurred today. Patient states she bent over and fell forward. Patient hit the back of her head. Patient does not remember any of the events from the fall. Patient states that her head feels aching. Patient was unconscious for few seconds. Patient is unsure of her last tetanus. Patient denies any paresthesias. Patient denies any nausea or vomiting. Patient is to some pain in her neck and back. Patient states she has been falling more frequently over the past couple weeks. [facility] Medical History Presence of cardiac pacemaker (~05/29/21) Chronotropic incompetence with sinus node dysfunction Sick sinus syndrome Sinus bradycardia Retinal detachment Essential hypertension GERD (gastroesophageal reflux disease) Acute respiratory failure with hypoxia PND (post-nasal drip) History of non-ST elevation myocardial infarction (NSTEMI) Pulmonary nodule Cough Dizziness Bronchiectasis Thrush, oral Dyspnea Chest pain Asthma exacerbation Bilateral SubmassivePE Hypothyroidism Asthmatic bronchitis , chronic Home Medications ?Medication ?Instructions ?Recorded ?Last Taken ?Type acetaminophen 325 mg tablet 650 mg PO QHS pain 11/17/16 04/15/25 History baclofen 10 mg tablet 5 mg PO BID muscle relaxer 11/17/16 04/15/25 History cyanocobalamin (vitamin B-12) 1,000 mcg PO DAILY vitamin 11/17/16 04/15/25 History 1,000 mcg tablet multivitamin 1 tab PO DAILY vitamin 11/17/16 04/15/25 History paroxetine HCl 10 mg tablet 40 mg PO DAILY mental health 11/17/16 04/15/25 History polyethylene glycol 3350 17 gram 17 gm PO PRN constipation 05/27/17 04/13/25 History oral powder packet aspirin 81 mg tablet,delayed 81 mg PO QHS heart health 11/27/17 04/15/25 History release lamotrigine 25 mg tablet,extended 25 mg PO DAILY 11/27/17 04/15/25 History release 24 hr loratadine 10 mg tablet (Claritin) 10 mg PO PRN allergies 12/27/20 04/15/25 History albuterol sulfate 2.5 mg/3 mL 2.5 mg inhalation Q4H PRN Sob &/Or 01/10/21 05/29/21 History (0.083 %) solution for nebulization Wheezing brimonidine 0.2 %-timolol 0.5 % 1 drp ophthalmic (eye) BID eye 01/10/21 04/15/25 History eye drops (Combigan) health ketotifen fumarate 0.025 % (0.035 1 drp ophthalmic (eye) BID eye 01/10/21 Unknown History %) eye drops health latanoprost 0.005 % eye drops, 1 drp ophthalmic (eye) QPM eye 01/10/21 04/15/25 History emulsion health lorazepam 1 mg tablet 2 mg PO QHS anxiety 01/10/21 Unknown History pantoprazole 20 mg tablet,delayed 40 mg PO DAILY reflux 01/10/21 04/15/25 History release vibegron 75 mg tablet (Gemtesa) 75 mg PO DAILY 08/07/21 04/15/25 History albuterol sulfate 90 mcg/actuation 1 - 2 puff inhalation Q4H PRN PRN 02/11/22 04/15/25 Rx aerosol inhaler Shortness Of Breath #18 grams ascorbic acid (vitamin C) 250 mg 250 mg PO BID 08/19/22 Unknown History tablet lactobacillus combination no.9 4 4,000 mmu cells PO DAILY 08/19/22 04/15/25 History billion cell capsule (Adult 50 Plus Probiotic) ergocalciferol (vitamin D2) 1,250 50,000 unit PO QMONTH vitamin 09/10/22 Unknown History mcg (50,000 unit) capsule levothyroxine 88 mcg tablet 88 mcg PO .COMPLEX thyroid 07/01/24 04/14/25 History fluticasone furoate 100 1 inh inhalation DAILY #60 ea 08/22/24 04/15/25 Rx mcg-vilanterol 25 mcg/dose inhalation powder (Breo Ellipta) meloxicam 15 mg tablet 15 mg PO DAILY 09/21/24 04/15/25 History lisinopril 20 mg tablet 20 mg PO DAILY blood pressure #90 03/31/25 04/15/25 Rx tabs estradiol 0.01% (0.1 mg/gram) 1 g vaginal 3XW 3 months #42.5 04/14/25 04/10/25 Rx vaginal cream grams nitrofurantoin 100 mg PO BID #14 caps 04/14/25 04/16/25 Rx monohydrate/macrocrystals 100 mg capsule (Macrobid) furosemide 20 mg tablet 10 mg PO QAM Diuretic 04/17/25 04/15/25 History Allergy/AdvReac Type Severity Reaction Status Date / Time ciprofloxacin (From Cipro) Allergy Itching Verified 04/17/25 02:22 diphenhydramine (From Allergy Rash Verified 04/17/25 02:22 Benadryl) Penicillins Allergy Hives Verified 04/17/25 02:22 shellfish derived Allergy Anaphylaxis Verified 04/17/25 02:22 Sulfa (Sulfonamide Allergy Upset Verified 04/17/25 02:22 Antibiotics) Stomach tiotropium (From Spiriva Allergy Other Verified 04/17/25 02:22 with HandiHaler) ketamine AdvReac hallucinati Verified 04/17/25 02:22 ons Family History Mother Breast cancer Colon cancer Father Cancer Lung Grandmother Breast cancer CVA (cerebral vascular accident) Surgical History History of tonsillectomy History of cholecystectomy History of bronchoscopy History of cataract extraction History of hysterectomy History of bladder suspension procedure Social History (Updated 04/17/25 @ 00:[address] Idalia Marti MD) household members: none Smoking Status: Former smoker Tobacco: How many years used: 10 second hand exposure: No alcohol intake: current details: occasional substance use type: does not use caffeine: Yes Type: coffee what type of physical activity do you participate in: other seatbelt use: always do you feel safe at home: Yes ROS ROS ED Constitutional Constitutional ED: Denies chills or fever(s) Eyes Eyes: Denies blurry vision or change in vision ENT ENT ED: Reports rhinorrhea; Denies sore throat Cardiovascular Cardiovascular: Reports chest pain; Denies palpitations Respiratory/Chest Respiratory/Chest: Denies cough or dyspnea Gastrointestinal Gastrointestinal: Denies nausea or vomiting Genitourinary Genitourinary ED: Denies dysuria or hematuria Musculoskeletal Musculoskeletal: Reports back pain and neck pain Integumentary Denies abscess or rash Neurologic Neurologic: Reports headache(s); Denies weakness Allergic/Immunologic Allergic/Immunologic ED: Denies mouth swelling or urticaria EXAM Physical Exam Const Vital Signs: 04/16/25 18:46 04/16/25 20:45 04/16/25 21:09 Temperature 97.6 F L Temperature Source Oral Pulse Rate 60 63 Pulse Rate [Lying] Pulse Rate [Sitting (for 1 minute prior to obtaining)] Pulse Rate [Standing (for 1 minute prior to obtaining)] Respiratory Rate 16 18 Respiratory Effort Normal Respiratory Depth Normal Respiratory Pattern Normal Blood Pressure 147/70 H 149/77 H Blood Pressure [Lying] Blood Pressure [Sitting (for 1 minute prior to obtaining)] Blood Pressure [Standing (for 1 minute prior to obtaining)] Blood Pressure Mean 95 101 Blood Pressure Mean [Lying] Blood Pressure Mean [Sitting (for 1 minute prior to obtaining)] Blood Pressure Mean [Standing (for 1 minute prior to obtaining)] Pulse Ox 95 93 Oxygen Delivery Method Room Air Room Air Room Air 04/16/25 22:00 04/16/25 23:26 04/17/25 00:00 Temperature Temperature Source Pulse Rate 61 60 Pulse Rate [Lying] 60 Pulse Rate [Sitting (for 1 minute prior to obtaining)] 62 Pulse Rate [Standing (for 1 minute prior to obtaining)] 78 Respiratory Rate 18 17 Respiratory Effort Respiratory Depth Respiratory Pattern Blood Pressure 147/72 H 161/77 H Blood Pressure [Lying] 142/70 H Blood Pressure [Sitting (for 1 minute prior to obtaining)] 142/77 H Blood Pressure [Standing (for 1 minute prior to obtaining)] 141/87 H Blood Pressure Mean 97 105 Blood Pressure Mean [Lying] 94 Blood Pressure Mean [Sitting (for 1 minute prior to obtaining)] 98 Blood Pressure Mean [Standing (for 1 minute prior to obtaining)] 105 Pulse Ox 100 95 Oxygen Delivery Method Room Air Room Air Positive well nourished and well developed General Appearance ED: well developed and NAD HEENT HEENT Narrative: There is a 3 cm full-thickness linear laceration over the occipital scalp. There is moderate gapping of the wound margins. There is no bony crepitance or step-off noted. There is no foreign body noted. There is mild bleeding noted. Neck full ROM and supple Resp normal respiratory effort and clear to auscultation bilaterally Cardio regular rate and regular rhythm GI non-tender and non-distended Palpation: soft Neuro oriented x3, CN's II-XII intact bilaterally, moves all extremities, no focal motor deficits and no sensory deficits noted Counselor Coma Scale: document GCS findings Spontaneous Obeys Commands Oriented 15 Sensorium / Orientation: alert Motor Exam: general weakness Psych mental status grossly normal MDM MDM MDM Narrative Medical decision making narrative: Differential diagnosis includes intracranial bleeding, closed head injury, electrolyte abnormality, urinary tract infection, dehydration, hypovolemia, and coagulopathy. CT scan of the brain will be obtained to assess for intracranial bleeding and stroke. CBC will be obtained to assess for leukocytosis and anemia. Basic metabolic profile will be obtained to look for electrolyte abnormality and renal function. PT with INR and PTT will be obtained to assess for coagulopathy. Urinalysis will be obtained to assess for urinary tract infection. History & Record Review Additional record(s) reviewed:: Prior labs Lab Data Attestation: I reviewed the patient's lab results. Lab results narrative: CBC was reviewed. There is a mild anemia with a hemoglobin of 10.5 and hematocrit 33.6. The remainder is within normal limits. Basic metabolic profile was reviewed. BUN was slightly elevated at 35 and creatinine was 1.40. These are consistent with previous results. The remainder is within normal limits. PT with INR and PTT were reviewed and were within normal limits. Urinalysis was reviewed. There is no evidence of urinary tract infection or hematuria. Labs: Laboratory Results - last 24 hr 04/16/25 21:24 WBC 8.1 RBC 3.38 L Hgb 10.5 L Hct 33.6 L MCV 99.4 H MCH 31.1 MCHC 31.3 L RDW Std Deviation 54.9 H RDW Coeff of Dave 14.9 H Plt Count 232 MPV 10.2 Immature Gran % (Auto) 0.900 Neut % (Auto) 62.5 Lymph % (Auto) 22.0 Foster % (Auto) 11.1 H Eos % (Auto) 2.9 Baso % (Auto) 0.6 Absolute Neuts (auto) 5.0 Absolute Lymphs (auto) 1.77 Nucleated RBC % 0 PT 13.4 INR 1.0 APTT 27.1 Sodium 141 Potassium 4.1 Chloride 107 Carbon Dioxide 23.9 Anion Gap 10 BUN 35 H Creatinine 1.40 H Estim Creat Clear Calc 25.67 L Est GFR (MDRD) Non-Af 36 L BUN/Creatinine Ratio 24.6 H Glucose 103 H Calcium 9.4 Magnesium 2.1 Urine Color Yellow Urine Clarity Clear Urine pH 6.5 Ur Specific Lug[place] 1.010 Urine Protein Negative Urine Glucose (UA) Normal Urine Ketones Negative Urine Occult Blood Negative Urine Nitrite Negative Urine Bilirubin Negative Urine Urobilinogen Normal Ur Leukocyte Esterase Negative Urine RBC 0-5 SEEN Urine WBC 0-5 SEEN Ur Squamous Epith Cells 0-5 SEEN Urine Bacteria RARE Urine Mucus 0 SEEN Radiography Diagnostic Testing: Clinical Impression(s) from Imaging Studies Brain CT 04/16/25 21:01 IMPRESSION: 1. No intracranial hemorrhage. No mass effect or midline shift. 2. 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 Reading Location: [facility] CT scan of the brain was obtained. There is no acute intracranial abnormality. There are chronic changes noted. This was interpreted by the radiologist was also independently reviewed by myself. Management Discussion w/another healthcare provider: Hospitalist Treatment and Re-Evaluation Narrative: Orthostatic vital signs were obtained. Patient stated she felt unsteady and nauseated when she stood up. Otherwise, orthostatic vital signs were within normal limits. The wound was cleaned and irrigated with copious amounts of normal saline. The wound was anesthetized with 1% lidocaine with epinephrine. The wound was explored. There were no foreign bodies. The wound was closed with 6 maggi. Patient tolerated procedure well. Patient and family were advised of the findings. Patient states she still feels somewhat unsteady. Because of this, I recommended admission to the hospital for observation. Patient and family are agreeable with this. I will discuss case with the hospitalist for admission. Patient and family understand and are agreeable with the plan. All questions were answered. Procedures Lacerations Occipital scalp: Length: 3 cm Depth: Sub Q Shape: Linear Prep: Sterile Conditions and Chlorhexadine Laceration repair: Irrigated, Lidocaine with epi, Local and Wound explored Number of Sutures/Maggi: 6 Suture Information: - ([place]) Discharge Plan Dx/Rx/DC Orders Clinical Impression: Closed head injury, Frequent falls, Laceration of occipital scalp, Essential hypertension Disposition Disposition: Acute Care Hospital [facility] Discharge Date/Time: 04/17/25 01:48
[2025-04-16] MEDS: Lidocaine 1% /Epi 1:100 (20ml) 20 ML Vial INFILT (21:25)
[2025-04-16 21:37] LABS: Mucous, Urine 0 SEEN /hpf (<or=2+)
[2025-04-16 21:39] LABS: Color, Urine Yellow (Yellow); Glucose, Dipstick Normal (Normal); Ketone-Dipstick Negative (Negative); Leukocyte Esterase-Dipstick Negative /ul (Negative); Nitrite-Dipstick Negative (Negative); Occult Blood-Urine Negative /ul (Negative); Protein-Dipstick Negative (Negative); Specific Gravity, Urine 1.010 (1.002-1.030); Urine Bilirubin Dipstick Negative (Negative)
[2025-04-16 21:40] LABS: Hematocrit 33.6 % (37-47); Hemoglobin 10.5 g/dL (12.0-15.0); Immature Granulocytes Count 0.070 X10^3/uL (0.0-0.0); Mean Corp Hgb Conc 31.3 g/dL (32-36); Mean Corpuscular Volume 99.4 fL (81-99); Mean Platelet Vol. 10.2 fl (6.2-12.0); NRBC Flagged by Analyzer 0 % (0-5); Platelet Count 232 K/mm3 (150-450); RBC Distribution Width CV 14.9 % (11.6-14.6); RBC Distribution Width SD 54.9 fl (35.1-43.9); Red Blood Count 3.38 M/mm3 (4.2-5.4); White Blood Count 8.1 K/mm3 (4.4-11.0)
[2025-04-16 21:56] LABS: Prothrombin Time (Protime)PT. 13.4 SECONDS (11.7-14.9)
[2025-04-16 21:57] LABS: Partial Thromboplast Time 27.1 Seconds (24.1-36.2)
[2025-04-16 22:00] VITALS: BP 147/72; PULSE 61; RESP 18; O2SAT 100
[2025-04-16 22:08] LABS: Red Blood Cells-Urine 0-5 SEEN /hpf (0-5)
[2025-04-16 22:09] LABS: Squamous Epithelial Cells - UA 0-5 SEEN /hpf (5-10)
[2025-04-16 22:10] LABS: Anion Gap 10 (5-15); BUN 35 mg/dL (4-19); BUN/Creat Ratio 24.6 RATIO (10-20); Calcium,Total 9.4 mg/dL (7.6-11.0); Carbon Dioxide 23.9 mmol/L (21.0-32.0); Chloride 107 mmol/L (98-108); Estimated Creatinine Clearance 25.67 ml/min (50-250); Glucose 103 mg/dL (70-99); Potassium 4.1 mmol/L (3.3-5.1)
[2025-04-16 23:26] VITALS: BP 141/87; BP 142/70; BP 142/77; PULSE 60; PULSE 62; PULSE 78
[2025-04-17] VITALS (10 sets, daily range): BP systolic 112–161; BP diastolic 62–83; PULSE 59–80; RESP 15–22; TEMP 36.5–37.2; O2SAT 90–100; BMI 28.7; BMI 29.5
--- NOTE | 2025-04-17 00:45 | HP.PCM.HOS_ITS ---
HPI - General General Date of Admission: 04/17/25 Date of Service: 04/17/25 Chief Complaint: Fall, hit head, LOC. HPI Narrative The patient is an 89 y/o F w/ PMHx: Hx SSS s/p pacemaker status, GERD, HTN, HLD, Asthma, Hx VTE w/ submassive PE, Hypothyroidism, Former tobacco use, JADIEL, CKD stage III per GFR trending, Chronic anemia who presents to the [facility] ED on 04/17/2025 with history of mechanical fall occurring on day of presentation noted that she had been bending over and fell forward hitting the back of her head unfortunately not recalling any of the event with loss of consciousness and some mild amnesia associated with an aching generalized headache following prompting eventual ED evaluation. She does report that she believes she was unconscious only for seconds. She does report that she is been falling more frequently over the last several weeks. Patient reports mild headache still, generalized, rating it 2-3 out of 10 in severity with no light or sound sensitivity. Workup in the ED included T97.6, heart rate 60, BP 147/70, respiratory rate 16, 95% on room air with most recent repeat vitals heart rate 60, BP 161/77, respiratory rate 17, 95% on room air, orthostatics unremarkable, CBC with WBC 8.1, hemoglobin 10.5, MCV 99.4, platelet 232 without marked shift, unremarkable coags, BMP with BUN/canaille 35/1.40, GFR 36, glucose 103, urinalysis unremarkable, CT brain with no acute intracranial finding with chronic involutional and ischemic gliotic white matter changes noted previously. In the ED patient administered tetanus update. Family noted concerns of patient being able to safely return to home especially given her frequent falls. Patient in the ED did have irrigation of her head laceration with eventual closure with 6 lázaro. [facility] Medical History Presence of cardiac pacemaker (~05/29/21) Chronotropic incompetence with sinus node dysfunction Sick sinus syndrome Sinus bradycardia Retinal detachment Essential hypertension GERD (gastroesophageal reflux disease) Acute respiratory failure with hypoxia PND (post-nasal drip) History of non-ST elevation myocardial infarction (NSTEMI) Pulmonary nodule Cough Dizziness Bronchiectasis Thrush, oral Dyspnea Chest pain Asthma exacerbation Bilateral SubmassivePE Hypothyroidism Asthmatic bronchitis , chronic Home Medications ?Medication ?Instructions ?Recorded ?Last Taken ?Type acetaminophen 325 mg tablet 650 mg PO QHS pain 7 11/16/16 History baclofen 10 mg tablet 5 mg PO BID muscle relaxer 0 11/17/16 11/16/16 History cyanocobalamin (vitamin B-12) 1,000 mcg PO DAILY vitam in 11/17/16 11/16/16 History 1,000 mcg tablet multivitamin 1 tab PO DAILY vitamin 11/1711/16/16 History paroxetine HCl 10 mg tablet 40 mg PO DAILY mental heal th 11/17/16 05/29/21 History polyethylene glycol 3350 17 gram 17 gm PO DAILY consti pation 05/27/17 Unknown History oral powder packet aspirin 81 mg tablet,delayed 81 mg PO QHS heart health 11/27/17 Unknown History release lamotrigine 25 mg tablet,extended 25 mg PO DAILY 11/27 Unknown History release 24 hr loratadine 10 mg tablet (Claritin) 10 mg PO DAILY therese rgies 12/27/20 Unknown History albuterol sulfate 2.5 mg/3 mL 2.5 mg inhalation Q4H AL N Sob &/Or 01/10/21 05/29/21 History (0.083 %) solution for nebulization Wheezing brimonidine 0.2 %-timolol 0.5 % 1 drp ophthalmic (eye) BID eye 01/10/21 Unknown History eye drops (Combigan) health ketotifen fumarate 0.025 % (0.035 1 drp ophthalmic (ey e) BID eye 01/10/21 Unknown History %) eye drops health latanoprost 0.005 % eye drops, 1 drp ophthalmic (eye) QPM eye 01/10/21 Unknown History emulsion health lorazepam 1 mg tablet 2 mg PO QHS anxiety 01/10/21 Unknown History pantoprazole 20 mg tablet,delayed 40 mg PO DAILY reflu x 01/10/21 05/29/21 History release vibegron 75 mg tablet (Gemtesa) 75 mg PO DAILY 1 Unknown History albuterol sulfate 90 mcg/actuation 1 - 2 puff inhalati on Q4H PRN PRN 02/11/22 Unknown Rx aerosol inhaler Shortness Of Breath #18 gram s ascorbic acid (vitamin C) 250 mg 250 mg PO BID 2 Unknown History tablet lactobacillus combination no.9 4 4,000 mmu cells PO DA BUTCH 08/19/22 Unknown History billion cell capsule (Adult 50 Plus Probiotic) ergocalciferol (vitamin D2) 1,250 50,000 unit PO QMONT H vitamin 09/10/22 Unknown History mcg (50,000 unit) capsule conjugated estrogens 0.625 mg/gram 0.625 mg vaginal .3 xweek 02/11/24 Unknown History vaginal cream levothyroxine 88 mcg tablet 88 mcg PO .COMPLEX thyroid 07/01/24 Unknown History hydrocodone-acetaminophen 5-325mg 1 tab PO Q6H PRN PRN Pain 3 days 08/08/24 Unknown Rx 5mg-325mg #10 TABLETS fluticasone furoate 100 1 inh inhalation DAILY #60 e a 08/22/24 Unknown Rx mcg-vilanterol 25 mcg/dose inhalation powder (Breo Ellipta) meloxicam 15 mg tablet 15 mg PO DAILY 09/21/24 Unkn own History furosemide 20 mg tablet 20 mg PO QAM #90 tabs Unknown Rx lisinopril 20 mg tablet 20 mg PO DAILY blood pressur e #90 03/31/25 Unknown Rx tabs estradiol 0.01% (0.1 mg/gram) 1 g vaginal 3XW 3 months #42.5 04/14/25 Unknown Rx vaginal cream grams nitrofurantoin 100 mg PO BID #14 caps 04/14 Unknown Rx monohydrate/macrocrystals 100 mg capsule (Macrobid) Allergy/AdvReac Type Severity Reaction Status Date / Time ciprofloxacin (From Cipro) Allergy Itching Verified 04/16/25 18:52 diphenhydramine (From Allergy Rash Verified 04/16/25 18:52 Benadryl) Penicillins Allergy Hives Verified 04/16/25 18:52 shellfish derived Allergy Anaphylaxis Verified 04/16/25 18:52 Sulfa (Sulfonamide Allergy Upset Verified 04/16/25 18:52 Antibiotics) Stomach tiotropium (From Spiriva Allergy Other Verified 04/16/25 18:52 with HandiHaler) ketamine AdvReac hallucinati Verified 04/16/25 18:52 ons Family History Mother Breast cancer Colon cancer Father Cancer Lung Grandmother Breast cancer CVA (cerebral vascular accident) Surgical History History of tonsillectomy History of cholecystectomy History of bronchoscopy History of cataract extraction History of hysterectomy History of bladder suspension procedure Social History (Updated 04/17/25 @ 00:[address] Idalia Marti MD) household members: none Smoking Status: Former smoker Tobacco: How many years used: 10 second hand exposure: No alcohol intake: current details: occasional substance use type: does not use caffeine: Yes Type: coffee what type of physical activity do you participate in: other seatbelt use: always do you feel safe at home: Yes ROS ROS Narrative Admission Review of Systems: CONSTITUTIONAL: No weight loss, fever, chills, + weakness or fatigue. HEENT: + Mild headache, fall with head trauma with small laceration. Eyes: No visual loss, blurred vision, double vision or yellow sclerae. Ears, Nose, Throat: No hearing loss, sneezing, congestion, runny nose or sore throat. SKIN: No rash or itching, lesions, + occasional stage ecchymoses, abrasion, fall with small head laceration. CARDIOVASCULAR: + Chronic distal edema. No chest pain, chest pressure or chest discomfort, palpitations, orthopnea, syncopal events. RESPIRATORY: No shortness of breath, cough or sputum, wheezing, hemoptysis. GASTROINTESTINAL: No anorexia, nausea, vomiting or diarrhea, abdominal pain, melena, BRBPR. GENITOURINARY: No dysuria, frequency, urgency or retention. NEUROLOGICAL: + Headache, frequent falls. No dizziness, syncope, paralysis, ataxia, numbness or tingling in the extremities, focal weakness, change in bowel or bladder control, seizure. MUSCULOSKELETAL: No muscle, back pain, joint pain or stiffness. HEMATOLOGIC: + Chronic anemia, easy bleeding/bruising. LYMPHATICS: No enlarged nodes. No history of splenectomy. PSYCHIATRIC: + History of anxiety and depression. ENDOCRINOLOGIC: No reports of sweating, cold or heat intolerance. No polyuria or polydipsia. ALLERGIES: + History of asthma and allergic rhinitis, hives and anaphylaxis. Vital Signs Vital Signs Vital Signs: 04/16/25 18:46 04/16/25 20:45 04/16/25 21:09 Temperature 97.6 F L Temperature Source Oral Pulse Rate 60 63 Pulse Rate [Lying] Pulse Rate [Sitting (for 1 minute prior to obtaining)] Pulse Rate [Standing (for 1 minute prior to obtaining)] Respiratory Rate 16 18 Respiratory Effort Normal Respiratory Depth Normal Respiratory Pattern Normal Blood Pressure 147/70 H 149/77 H Blood Pressure [Lying] Blood Pressure [Sitting (for 1 minute prior to obtaining)] Blood Pressure [Standing (for 1 minute prior to obtaining)] Blood Pressure Mean 95 101 Blood Pressure Mean [Lying] Blood Pressure Mean [Sitting (for 1 minute prior to obtaining)] Blood Pressure Mean [Standing (for 1 minute prior to obtaining)] Pulse Ox 95 93 Oxygen Delivery Method Room Air Room Air Room Air 04/16/25 22:00 04/16/25 23:26 04/17/25 00:00 Temperature Temperature Source Pulse Rate 61 60 Pulse Rate [Lying] 60 Pulse Rate [Sitting (for 1 minute prior to obtaining)] 62 Pulse Rate [Standing (for 1 minute prior to obtaining)] 78 Respiratory Rate 18 17 Respiratory Effort Respiratory Depth Respiratory Pattern Blood Pressure 147/72 H 161/77 H Blood Pressure [Lying] 142/70 H Blood Pressure [Sitting (for 1 minute prior to obtaining)] 142/77 H Blood Pressure [Standing (for 1 minute prior to obtaining)] 141/87 H Blood Pressure Mean 97 105 Blood Pressure Mean [Lying] 94 Blood Pressure Mean [Sitting (for 1 minute prior to obtaining)] 98 Blood Pressure Mean [Standing (for 1 minute prior to obtaining)] 105 Pulse Ox 100 95 Oxygen Delivery Method Room Air Room Air Weight Weight: 156 lb 15.506 oz Body Mass Index (BMI) 28.7 Physical Exam Narrative Physical Examination: General: Awake, alert, oriented x [address], month, year, remains cooperative, seated upright in the ED bed, fatigued, notes still ongoing mild generalized headache but better. Skin: Normal color, normal turgor, no icterus, no cyanosis except for occasional stage ecchymoses, abrasion, status post fall with head laceration status post irrigation and closure with 6 lázaro per ED, no active current bleeding. HEENT: Status post fall with head laceration status post irrigation and closure with 6 lázaro, no current bleeding/NC, EOMI, PERRLA, mildly dry MM, no carotid bruits or JVD noted. Lungs: Mildly diminished, greater bases, appropriate effort, no appreciated rales, ronchi or wheezing. Heart: Regular rate and rhythm; no gallop, rub audible. Abdomen: Soft, NTTP, ND, mildly hyperactive BS, no appreciated HSM. Extremities: No cyanosis, no clubbing, mild ankle to distal hayes 1-2+ pitting edema which is noted is chronic. Neurological: Patient awake, alert, oriented as noted, cognitive function intact; pupils equally reactive to light and accommodation, cranial nerves grossly normal, moving all 4 extremities, no focal deficits, strength moderately to severely globally decreased Psychiatric: Affect appears fatigued otherwise normal, no acute evidence of depressive or anxiety feelings but does have underlying history. Results Lab / Micro Data 04/16/25 21:24 04/16/25 21:24 Labs: Laboratory Results - last 24 hr 04/16/25 21:24: WBC 8.1, RBC 3.38 L, Hgb 10.5 L, Hct 33.6 L, MCV 99.4 H, MCH 31.1, MCHC 31.3 L, RDW Std Deviation 54.9 H, RDW Coeff of Dave 14.9 H, Plt Count 232, MPV 10.2, Immature Gran % (Auto) 0.900, Neut % (Auto) 62.5, Lymph % (Auto) 22.0, Knott % (Auto) 11.1 H, Eos % (Auto) 2.9, Baso % (Auto) 0.6, Absolute Neuts (auto) 5.0, Absolute Lymphs (auto) 1.77, Nucleated RBC % 0, PT 13.4, INR 1.0, APTT 27.1, Sodium 141, Potassium 4.1, Chloride 107, Carbon Dioxide 23.9, Anion Gap 10, BUN 35 H, Creatinine 1.40 H, Estim Creat Clear Calc 25.67 L, Est GFR (MDRD) Non-Af 36 L, BUN/Creatinine Ratio 24.6 H, Glucose 103 H, Calcium 9.4, Urine Color Yellow, Urine Clarity Clear, Urine pH 6.5, Ur Specific [place] 1.010, Urine Protein Negative, Urine Glucose (UA) Normal, Urine Ketones Negative, Urine Occult Blood Negative, Urine Nitrite Negative, Urine Bilirubin Negative, Urine Urobilinogen Normal, Ur Leukocyte Esterase Negative, Urine RBC 0-5 SEEN, Urine WBC 0-5 SEEN, Ur Squamous Epith Cells 0-5 SEEN, Urine Bacteria RARE, Urine Mucus 0 SEEN Imaging Radiology Impression Brain CT 04/16/25 21:01 IMPRESSION: 1. No intracranial hemorrhage. No mass effect or midline shift. 2. 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 Reading Location: [facility] Assessment & Plan Assessment/Plan (1) Frequent falls: PLAN: Plan The patient is an 89 y/o F w/ PMHx: Hx SSS s/p pacemaker status, GERD, HTN, HLD, Asthma, Hx VTE w/ submassive PE, Hypothyroidism, Former tobacco use, JADIEL, CKD stage III per GFR trending, Chronic anemia who presents to the [facility] ED on 04/17/2025 with history of mechanical fall occurring on day of presentation noted that she had been bending over and fell forward hitting the back of her head unfortunately not recalling any of the event with loss of consciousness and some mild amnesia associated with an aching generalized headache following prompting eventual ED evaluation. #1. Recurrent mechanical falls with adult failure to thrive with episode of head trauma with LOC with transient amnesia, currently resolved: Given family concerns will admit patient to medical surgical floor, maintain on fall precautions, likely will need to alter patient medication regimen as she is on a significant high dose of Ativan nightly which likely can contribute to her fall risk in addition to baclofen, both of which will be temporarily held this evening but may need to reconsider resuming at least at a lower dose to avoid withdrawal, PT/OT/case management consulted for discharge planning. Patient status post 6 lázaro placed to the scalp and will need these removed in 1 week/7 days. #2. Macrocytic anemia: Admission hemoglobin 10.5, MCV 99.4, baseline hemoglobin noted to vacillate, more recently has been 11-12 however this was greater than 6 months previous to current presentation, will trend CBC. #3. Chronic Kidney Disease Stage III, unclear subtype per GFR trending: Admission BUN/Cr 35/1.40, GFR 36, baseline renal function more recently 1.3-1.4 with last noted 11/11/2024 creatinine 1.42, repeat BMP in AM. #4. Anxiety and depression: Will continue patient home paroxetine regimen. Patient is on a significant amount of lorazepam noted to be 2 mg nightly, given advanced age this may be significantly contributing to her fall risk. Given recent amnesic event will temporarily hold and may need to restart back at a lower dose and then wean off outpatient. #5. Hypertension: Continue home regimen including lisinopril, Lasix with hold parameters as needed although orthostatics are negative of note, PRN hydralazine. #6. Hyperlipidemia: Per current list does not appear to be on regimen, defer to outpatient. #7. OA, chronic pain: Patient is on significant mount as noted nightly Ativan specifically 2 mg in addition to being on baclofen 5 mg p.o. twice daily as a muscle relaxer and unfortunately these items are very sedated and likely contributing to her falls, will temporarily hold but may need to resume at a lower dose and weaned off outpatient. #8. Chronic asthma with allergic rhinitis: Will temporally hold home inhaler in the interim placed on ATC budesonide therapy, as needed albuterol, encourage head of bed and I-S, will continue patient home loratadine regimen. 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 #10. History SSS: Status post pacemaker placement, encourage continued follow- up and interrogation outpatient as previously arranged. #11. Former tobacco use: Encouraged continued tobacco cessation. #12. Hypothyroidism: Will continue patient on levothyroxine regimen. #13. GERD: New patient on PPI. #14. JADIEL: Patient does not use any PAP therapy, uses 2 L NC nightly. #15. DVT prophylaxis: Heparin. #16. CODE status: Patient HCPOA is her brother primary and secondary is her daughter and living will is currently in place. Discussed CODE status at length including difference between FULL code, DNR-CCA and DNR-CC status. Following discussions about the differences in these status, requested DNR CCA, clarified further with examples and patient determined with intubation. Advanced Care Planning Face to Face Time: 16 minutes. Charges/Coding Visit Charges Inpatient E&M: 39067 Init Hosp L2 Procedures Hospitalists Procedures: 11213 Advncd Care Plan 30 Min
--- OUTSIDE RECORDS SUMMARY | 2025-04-17 01:06 | XMS RPT_ITS | CCD ---
Author Organization [facility] Care Team Providers Care Department Helper Name Role Phone Jayde Greenberg Unavailable Unavailable YorkCheriseJayde L Unavailable Unavailable Yensho PRODUCTION STAGE MANAGER, Taylor A Unavailable Unavailab le Rajesh TODD, Taylor A Unavailable Unavailab Ken Maldonado MD Primary Care Provider Moodiscaroline, Marquise F Unavailable Dr. Ken Contreras Primary Care Provider Dr. Ken Contreras Referring Provider Sam STEVE, PA Latonya Valdez Attending Provider Dr. Marquise Javed Attending Provider Dr. Marquise Javed Referring Provider Dr. Guzman Jolly Referring Provider Dr. Guzman oJlly Other Provider Dr. Epifanio Witt Attending Provider Ken Contreras MD Primary Care Provider Moodispaw, Marquise F Unavailable Tello, Marquise F Unavailable Ken Contreras MD Primary Care Provider Moodiscaroline, Marquise F Unavailable Dr. Ken Contreras Primary Care Provider Dr. Ken Contreras Referring Provider Taylor Arce Attending Provider Unavailable Radha STRETCHER OPERATOR, STRETCHER OPERATOR-C Irene Attending Provider Radha STRETCHER OPERATOR, STRETCHER OPERATOR-C Irene Referring Provider Dr. Ken Contreras Primary Care Provider Dr. Zane Mcpherson Attending Provider Dr. Zane Mcpherson Referring Provider Dr. Ken Contreras Primary Care Provider Dr. Ken Contreras Referring Provider Dr. Jaswant Miller Attending Provider Dat STRETCHER OPERATOR, STRETCHER OPERATOR-C Amanda Attending Provider Tello TONEY, Marquise Ivey Unavailable Ben, Dr. Rogers Primary Care Provider Ben, Dr. Rogers Referring Provider Taylor Arce Attending Provider Unavailable Dat STRETCHER OPERATOR, STRETCHER OPERATOR-C Amanda Attending Provider Rip Davenport RN, Maddie [...] Care Unavailable TREMAINE LANDON Attending Unavailable CONTRERAS, RTUONG Primary Care Unavailable Hussain DOG BOARDER.ART GILDER, Dia M Unavailable Wocj RAPP, Najma Hudson Unavailable Jade Contreras MD, Dr. Rogers Primary Care Provider Dale TONEY, Dr. Kulkarni Attending Provider Dale TONEY, Dr. Kulkarni Emergency Provider Ben TONEY, Dr. Rogers Attending Provider Jose Antonio [...] Contreras MD, Dr. Rogers Primary Care Provider Vida TONEY, Dr. Degroot Attending Provider Erik TONEY, Dr. Ley Referring Provider Erik TONEY, Dr. Ley Emergency Provider Ben TONEY, Dr. Rogers Primary Care Provider Erik TONEY, Dr. Ley Attending Provider Ben TONEY, Dr. Rogers Attending Provider Ben TONEY, Dr. Rogers Referring Provider Ben TONEY, Dr. Rogers Other Provider Tyrone TONEY, Dr. Barraza Attending Provider Tyrone TONEY, Dr. Barraza Attending Provider Sam STEVE, Latonya Valdez Attending Provider Ken Contreras Primary Care Unavailable Ken Contreras Attending Unavailable Vida, Verona Referring Unavailable Vida, Zane Attending Unavailable Contreras, Ken Primary Care Unavailable Vida, Verona Referring Unavailable Vida, Zane Attending Unavailable Contreras, Ken Primary Care Unavailable Contreras, Ken Consulting Unavailable Vida, Verona Attending Unavailable Contreras, Ken Primary Care Unavailable Contreras, Ken Referring Unavailable Vida, Zane Attending Unavailable Contreras, Ken Primary Care Unavailable Vida, Verona Attending Unavailable Contreras, Ken Primary Care Unavailable Contreras, Ken Primary Care Unavailable Latonya Chen Attending Unavail able Contreras, Ken Referring Unavailable Vida, Verona Referring Unavailable Vida, Verona Attending Unavailable Contreras, Ken Primary Care Unavailable Vida, Zane Attending Unavailable Contreras, Ken Primary Care Unavailable Contreras, Ken Referring Unavailable Jann Mello Referring Unavailable RiazJann saleem Attending Unavailable Contreras, Ken Primary Care Unavailable [...] Attending Unavailable Contreras, Ken Primary Care Unavailable DIA LOPEZ Referring Unavailable ASHELY MILLER Attending Unavailable CONTRERAS, KEN Primary Care Unavailable CONTRERAS, KEN Primary Care Unavailable CONTRERAS, KEN Attending Unavailable CONTRERAS, KEN Primary Care Unavailable JORGE JORDAN Attending Unavailable IRIS DELEON Referring Unavailable CONTRERAS, KEN Primary Care Unavailable CAMI MARS Referring Unavailable CONTRERAS, KEN Primary Care Unavailable CONTRERAS, KEN Primary Care Unavailable AILYN BONNER Referring Unavailable KAYA CARTWRIGHT JR Attending Unavailable CONTRERAS, KEN Primary Care Unavailable KAYA CARTWRIGHT JR Referring Unavailable CAMI MARS Attending Unavailable CONTRERAS, KEN Referring Unavailable CONTRERAS, KEN Primary Care Unavailable CAMI MARS Referring Unavailable CONTRERAS, KEN Primary Care Unavailable IRIS DELEON Referring Unavailable JACKIE LAINEZ Attending Unavailable CONTRERAS, KEN Primary Care Unavailable CONTRERAS, KEN Primary Care Unavailable CY, IRIS Morrison Referring Unavailable JACKIE LAINEZ Attending Unavailable DIA LOPEZ Attending Unavailable CONTRERAS, KEN Primary Care Unavailable DIA LOPEZ Referring Unavailable RHODA ALCAZAR Attending Unavailable CONTRERAS, KEN Primary Care Unavailable HUSSAINDIA TYLER Referring Unavailable CONTRERAS, KEN Primary Care Unavailable CONTRERAS, KEN Attending Unavailable CONTRERAS, KEN Primary Care Unavailable CONTRERAS, KEN Referring Unavailable CONTRERAS, KEN Primary Care Unavailable IRIS DELEON Referring Unavailable CONTRERAS, KEN Primary Care Unavailable CONTRERAS, KEN Primary Care Unavailable CONTRERAS, KEN Attending Unavailable CONTRERAS, KEN Referring Unavailable DIAN RODAS Attending Unavailable CONTRERAS, KEN Primary Care Unavailable CONTRERAS, KEN Primary Care Unavailable CONTRERAS, KEN Attending Unavailable AILYN BONNER Attending Unavailable AILYN BONNER Referring Unavailable CONTRERAS, KEN Primary Care Unavailable CAMI MARS Attending Unavailable CONTRERAS, KEN Primary Care Unavailable IRIS DELEON Referring Unavailable JACKIE LAINZE Attending Unavailable CONTRERAS, KEN Primary Care Unavailable CONTRERAS, KEN Referring Unavailable CONTRERAS, KEN Primary Care Unavailable JYOTSNA DONOHUE Attending Unavailable CONTRERAS, KEN Primary Care Unavailable CONTRERAS, KEN Referring Unavailable CONTRERAS, KEN Primary Care Unavailable AILYN BONNER Attending Unavailable AILYN BONNER Referring Unavailable CONTRERAS, KEN Primary Care Unavailable CAMI MARS Referring Unavailable CONTRERAS, KEN Primary Care Unavailable CONTRERAS, KEN Referring Unavailable CONTRERAS, KEN Primary Care Unavailable RUBEN FERRARA Attending Unavailable CONTRERAS, KEN Primary Care Unavailable CONTRERAS, KEN Attending Unavailable CONTRERAS, KEN Primary Care Unavailable JORGE JORDAN Referring Unavailable CONTRERAS, KEN Primary Care Unavailable ASHELY MILLER Attending Unavailable CONTRERAS, KEN Primary Care Unavailable DIA LOPEZ Attending Unavailable CONTRERAS, KEN Referring Unavailable KEN CONTRERAS Primary Care Unavailable CAMI MARS Referring Unavailable KEN CONTRERAS Primary Care Unavailable DIA LOPEZ Attending Unavailable KEN CONTRERAS Primary Care Unavailable Allergies Allergy Classification Reported Allergen(s) Allergy Type Date of Onset Reaction(s) Facility (4 sources) ciprofloxacin Drug Allergy 11-28-19 17 itching [facility] Work Phone: (20 sources) penicillAMINE; Translations: [PENICILLAMINE] Drug Allergy 11-28-19 17 Unknown [facility] Work Phone: (20 sources) Shellfish; Translations: [SHELLFISH] drug allergy 03-17-20 05 Shortness of Breath [facility] Work Phone: (4 sources) SULFACLEANSE / drug allergy 11-28-19 17 upset stomach [facility] Work Phone: (9 sources) Budesonide / formoterol; Translations: [BUDESONIDE-FORMOT EMA] Drug Allergy 11-28-19 10 Intolerance [facility] (20 sources) Cat; Translations: [CATS] Propensity to adverse reactions 12-20-19 06 [facility] Work Phone: (20 sources) Ciprofloxacin; Translations: [CIPROFLOXACIN] Drug Allergy 03-17-20 05 Itching [facility] (20 sources) diphenhydrAMINE; Translations: [DIPHENHYDRAMINE HCL] Drug Allergy 10-05-19 18 Rash [facility] (20 sources) Dust; Translations: [DUST] Propensity to adverse reactions 12-20-19 06 [facility] Work Phone: (20 sources) Ketamine; Translations: [KETAMINE] Drug Allergy 04-07-20 19 Unknown [facility] (20 sources) Mold Extract; Translations: [MOLD] Drug Allergy 08-06-20 06 [facility] (18 sources) Penicillins; Translations: [PENICILLINS] Propensity to adverse reactions 03-17-20 05 Rash [facility] (20 sources) Shellfish; Translations: [SHELLFISH CONTAINING PRODUCTS] Drug Allergy 11-28-19 17 Unknown [facility] (20 sources) Sulfonamides (Antibiotic); Translations: [SULFA (SULFONAMIDE ANTIBIOTICS)] Drug Intolerance 12-15-19 12 GI Upset [facility] (20 sources) tetanus toxoid vaccine, inactivated; Translations: [TETANUS TOXOID ADSORBED] Drug Allergy 10-14-19 08 Intolerance [facility] (20 sources) tiotropium; Translations: [TIOTROPIUM BROMIDE] Drug Allergy 04-13-20 08 Intolerance [facility] (20 sources) Tree's [Other] Propensity to adverse reactions 12-20-19 06 [facility] Work Phone: (14 sources) diphenhydrAMINE Drug Allergy 10-01-19 22 Rash [facility] (15 sources) Shellfish; Translations: [shellfish derived] Allergy to substance 10-01-19 22 Anaphylaxis [facility] (14 sources) tiotropium Drug Allergy 10-01-19 22 Other [facility] (20 sources) Penicillins Propensity to adverse reactions 03-17-20 05 Rash [facility] (20 sources) Budesonide / formoterol Drug Allergy 11-28-19 10 Intolerance [facility] (12 sources) Penicillins Allergy to substance 08-19-20 22 Hives [facility] (12 sources) Sulfonamides (Antibiotic) Allergy to substance 08-19-20 22 Upset Stomach [facility] (20 sources) Penicillins Propensity to adverse reactions 03-17-20 05 [facility] (1 source) Ciprofloxacin Drug Allergy 02-16-20 [facility] Repository (1 source) diphenhydrAMINE Drug Allergy 02-16-20 [facility] (1 source) Ketamine Drug Allergy 02-16-20 25 [facility] (1 source) Penicillins Drug allergy (disorder) 02-16-20 25 [facility] (1 source) Sulfonamides (Antibiotic) Drug allergy (disorder) 02-16-20 [facility] (1 source) tiotropium Drug Allergy 02-16-20 [facility] Rep[facility] Medications Current Medications Medication Drug [...] daily for the next 4 days AZITHROMYCIN [id number] Irene Garcia CNP Start: 03-18-2017 End: 04-15-2017 AZITHROMYCIN 250 MG TABS 2 t ablets by mouth today and then 1 tablet daily for the next 4 days AZITHROMYCIN [id number] Irene Garcia ART GILDER Start: 02-23-2017 End: 03-05-2017 AZITHROMYCIN 250 MG TABS 2 t ablets by mouth today and then 1 tablet daily for the next 4 days AZITHROMYCIN [id number] Jaswant Miller DO Comment on above: Take [...] Take 1/2 tab po twice daily BACLOFEN [id number] Jayde Barnes LPN Start: 11-17-2016 take 5 [...] 100 mg PO TWICE A DAY 20 0 April 07, 2019 12:00am July 06, [...] D2) 1,250 mcg (50,000 unit) capsule Active 18705 U PO EVERY MONTH September 10, 2022 4:26pm vitamin Start: 09-10-2022 take 50772 [IU] by m outh every month Ergocalciferol (Vitamin D2) Active 99263 UNIT PO EVERY MONTH September 10, 2022 3:26pm Start: 01-23-2022 End: 04-02-2024 ergocalciferol 50,000 unit c apsule (VITAMIN D2, DRISDOL) Indications: Vitamin D deficiency Take 1 capsule by mouth every 4 weeks. 3 capsule 3 04/28/2023 Active Start: 01-10-2021 End: 09-10-2022 Ergocalciferol (Vitamin D2) 1,250 mcg (50,000 unit) capsule Discontinued 57316 U PO every 2 weeks January 10, 2021 10:43am September 10, 2022 4:27pm vitamin Start: 01-10-2021 End: 09-10-2022 take 38000 [IU] by mouth every other week Ergocalciferol (Vitamin D2) Discontinued 08383 UNIT PO every 2 weeks January 10, 2021 9:43am September 10, 2022 3:27pm Start: 11-17-2016 End: 01-10-2021 Ergocalciferol (Vitamin D2) 50,000 UNIT capsule Discontinued 80482 U PO MO November 17, 2016 12:00am January 10, 2021 10:49am Comment on above: Take 1 capsule by mo ut every 2 weeks. Take 1 capsule by mo ut every 4 weeks. estrogens, conjugated (shelter) 0.625 mg/ml vaginal cream (20 sources) Estrogen [...] inhalation as instructed once daily. 1 each 11 04/07/2025 Active Start: 02-11-2022 End: 01-09-2023 Fluticasone [...] Active 20 mg PO EVERY MORNING 90 3 March 31, 2025 1:47pm Start: 07-04-2024 End: [...] mervin th once daily as needed (allergies). LORazepam [...] 11:00pm Start: 11-24-2016 [facility] PROTONIX 40 MG PACK One tablet by mouth daily PANTOPRAZOLE SODIUM [id number] Jayde Barnes LPN Start: 11-17-2016 End: 01-10-2021 Pantoprazole 40 MG tablet Di scontinued 20 mg PO TWICE A DAY November 17, 2016 12:00am January 10, 2021 10:47am Start: 11-17-2016 End: 01-10-2021 take 20 mg by mouth twice daily Pantoprazole Discontinued 20 MG PO TWICE A DAY November 16, 2016 11:00pm January 10, 2021 9:47am Comment on above: Take 2 tablets by mo [facility] once daily. PARoxetine hydrochloride 40 mg oral [...] One tablet by mouth daily PAROXETINE HCL 61774125966 Jayde Rodriguez Molly TODD Start: 11-17-2016 take 4 tablets by mo uth once daily Paroxetine Hcl 10 MG tablet Active 40 mg PO DAILY November 17, 2016 12:00am mental [facility] Start: 11-17-2016 take 40 mg by mouth once daily Paroxetine Hcl Active 40 MG PO DAILY November 16, 2016 11:00pm Comment on above: Take 1 tablet by mervin th once daily. polyethylene glycol 3350 13026 mg powder for oral solution (20 sources) [...] thursday, , thursday and sundays LEVOTHYROXINE SODIUM 54250186260 Jayde Barnes PEYTON Start: 11-17-2016 End: 10-30-2024 [...] NEEDED as needed for Shortness Of Breath 22 02February 11, 2022 2:20pm Start: 11-20-2020 End: 02-11-2022 take 1 puff(s) by inhalation every four hours as needed Albuterol Sulfate Active 1 - 2 PUFF INHALATION EVERY 4 HOURS NEEDED February 11, 2022 1:20pm Start: 09-23-2017 End: 11-20-2020 Albuterol Sulfate 1 INHALER inhaler Discontinued 1 - 2 NMA INHALATION EVERY 4 HOURS NEEDED as needed for Shortness Of Breath 22 02September 23, 2017 3:39pm November 20, 2020 11:56am Start: 09-23-2017 End: 11-20-2020 take 1 puff(s) by inhalation every four hours as needed Albuterol Sulfate Discontinued 1 - 2 PUFF INHALATION EVERY 4 HOURS NEEDED September 23, 2017 2:39pm November 20, 2020 10:56am Start: 04-15-2017 PROAIR HFA 108 (90 Base) MCG/ACT AERS 2 puffs every 4 hours as needed ALBUTEROL SULFATE [id number] Lory Rasheed Start: 11-24-2016 End: 07-24-2017 take 1-2 puff(s) by inhalation every four hours as needed VENTOLIN HFA 108 (90 Base) MCG/ACT AERS INH 1-2 puffs q4h as needed ALBUTEROL SULFATE 77120425213 Jayde Barnes LPN Start: 11-17-2016 End: 09-23-2017 [...] 1 tablet by mervin th once daily. apixaban 5 mg oral tablet [...] 1 spray each nostril daily AZELASTINE HCL 28486236885 Irene Garcia ART GILDER azelastine hydrochloride 0.137 mg/actuat / fluticasone propionate 0.05 mg/actuat metered dose nasal spray (8 sources) Corticosteroid, Histamine-1 Receptor Antagonist Start: 2016 End: 2016 take 1 spray(s) nasal route twice daily DYMISTA 137-50 MCG/ACT SUSP 1 spray each nostril twice daily AZELASTINE-FLUTICA SONE 65481753356 Irene Garcia ART GILDER benoxinate hydrochloride 4 mg/ml / fluorescein sodium [...] Comment on above: Take 1 capsule by [facility] twice daily for 7 days. cholecalciferol 09836 unt oral capsule (8 sources) Vitamin D Start: 11-25-19 17 take 1 capsule by mouth every week VITAMIN D3 44241 UNIT CAPS 1 capsule PO weekly CHOLECALCIFEROL 96020351754 Jayde Jennifer Barnes PRODUCTION STAGE MANAGER Start: 11-24-2016 take 1 capsule by [facility] every month VITAMIN D3 92249 UNIT CAPS 1 capsule PO monthly CHOLECALCIFEROL 42281871910 Jayde Jennifer Barnes PRODUCTION STAGE MANAGER D-Mannose powder (5 sources) Start: 08-19-2022 End: [...] tablet Discontinued 100 mg PO daily 7 0 March 07, 2024 12:00am July 01, 2024 1:24pm Start: 12-31-2020 End: 01-10-2021 take 1 tablet by mouth once daily Fluconazole 100 mg tablet Discontinued 100 mg PO daily 7 0 December 31, 2020 12:00am January 10, 2021 [...] 2 puffs twice daily FLUTICASONE PROPIONATE HFA 84467208540 Jayde Barnes LPN Start: 04-15-2017 End: 07-24-2017 FLOVENT HFA 220 MCG/ACT AERO 2 puff twice daily FLUTICASONE PROPIONATE HFA 68726935265 Jaswant Miller DO Start: 11-27-2016 End: 03-05-2017 take 2 spray(s) nasal route once daily FLUTICASONE PROPIONATE 50 MCG/ACT SUSP 2 sprays each nostril daily FLUTICASONE PROPIONATE 37337592585 Jaswant Miller DO Start: 11-17-2016 End: 01-10-2021 [...] MG TABS 1 tab twice daily GUAIFENESIN 54685295144 Irene Garcia ART GILDER levETIRAcetam 500 mg oral tablet (4 sources) Start: 10-05-2023 End: 10-29-2023 take 1 tablet by mouth twice daily levETIRAcetam (KEPPRA) 500 mg tablet Take 1 tablet by mouth two times a day for 5 days. 10 tablet 0 10/05/2023 10/29/2023 Discontinued Comment on above: Take 1 tablet by mervin th two times a day for 5 days. [...] One tablet by mouth daily MULTIPLE VITAMIN 72600510468 Jayde Rodriguez Molly TODD Start: 11-17-2016 take 1 tablet by mervin [...] on above: TAKE [address] [facility] TWICE DAILY FOR 7 DAYS nystatin 102383 unt/ml oral suspension (20 sources) Polyene Antifungal [...] 10 days Start: 04-15-2017 End: 07-24-2017 NYSTATIN 178236 UNIT/ML SUSP 5 cc swish and swallow three times a day NYSTATIN 18996967241 Jayde Barnes LPN oxyCODONE hydrochloride 5 mg [...] tab by mouth for 3 days. PREDNISONE 56235050232 Ireen Garcia CNP proparacaine hydrochloride 5 mg/ml ophthalmic [...] CAPS One tablet by mouth daily CYANOCOBALAMIN 27126353200 Jayde Barnes LPN Start: 11-17-2016 take 1 tablet by mervin once daily Cyanocobalamin (Vitamin B-12) 1,000 MCG tablet Active 1000 ug PO DAILY November 17, 2016 12:00am vitamin Comment on above: Take 1,000 mcg by mo [facility] once daily. Problems Active Problems Problem Classification [...] dyspnea; Translations: [Other forms of dyspnea] Onset: 01-05-2025 Episodic Other nervous system disorders [...] aftercare (20 sources) Drug therapy finding; Translations: [salvage determiner (current) use of anticoagulants] Onset: 11-25-2016 Resolved: [...] Test Name Value Interpretation Reference Range Facility CNPNon 04-14-2025 CNPN [facility] CNOVon 04-11-2025 CNOV Normal [facility] CNOVon 04-07-2025 CNOV Normal [facility] Cardiology Visit Reporton Cardiology Visit Report [facility] [address] [place], [place] [address] OFFICE VISIT Date of Service: 03/31/25 MR#: [id number] Acct: [id number] Name: GEOFFREY NASSAR Rep #: [id number] : 1935 Provider: POWER Canas Age/Sex: 89/F Location: [facility] Status: Signed HPI HPI History of [...] this she was evaluated by EP at [facility]. She underwent a PPM placement in 05/2021. [...] 1 - 2 puff inhalation Q4H PRN GA N 02/11/22 03/31/25 Rx aerosol inhaler Shortness [...] Q6H PRN (more content not included)... Normal [facility] CNOVon 03-28-2025 CNOV Normal [facility] CNPNon 03-28-2025 CNPN Normal [facility] XR CHEST 2V FRONTAL/LATon XR CHEST 2V FRONTAL/LAT Normal C [facility] XR Chest PA and Lateralon IMPRESSION: No acute radiographic abnormality. Statue Maker: PSCB Transcribe Date/Time: Mar 28 2025 6:08P Dictated by : KRISTEN ABREU MD This examination was interpreted and the report reviewed and electronically signed by: KRISTEN ABREU MD on Mar 28 2025 6:10PM [facility] DIVISION OF RADIOLOGY * * *Final Report* [...] the thoracic spine. DIVISION OF RADIOLOGY Provider, [facility] - 03/28/2025 * * *Final Report* [...] spine. IMPRESSION IMPRESSION: No acute radiographic abnormality. Statue Maker: [facility] Transcribe Date/Time: Mar 28 2025 6:08P Dictated by : KRISTEN ABREU MD This examination was interpreted and the report reviewed and electronically signed by: KRISTEN ABREU MD on Mar 28 2025 6:10PM [facility] Radiology Study observation (narrative) Kermit Gutierrez XR Chest PA and LateralOrder ed By: Ccf Provider on 03-28-2025 [facility] CNOVon 03-23-2025 CNOV Normal [facility] CNPNon 03-17-2025 CNPN Normal [facility] Cardiovascular stress test r eportOrdered By: Zane Mcpherson on 03-08-2025 Study report [facility] Cardiovascular Services [address] [place] [address] MR#: [id number] Acct: [id number] Name: GEOFFREY NASSAR Rep #: [id number] : 1935 89 From: Zane Mcpherson [...] ~ Date Dictated: 03/08/251718 Date Transcribed: 03/08/251718 Statue Maker: [place] Signed [facility] Work Phone: Stress Reporton 03-08-2025 Stress Report [facility] Cardiovascular Services [address] [place] [address] MR#: [id number] Acct: [id number] Name: GEOFFREY NASSAR Rep #: [id number] : 1935 89 From: Zane Mcpherson MD [...] myocardial perfusion stress test. Preserved ejection fraction. 03/08/251720 Date Zane Mcpherson MD CC: Dr. Ken Contreras MD Date Dictated: 03/08/251718 Date Transcribed: 03/08/251718 Statue Maker: [place] Signed Normal [facility] CNOVon 03-02-2025 CNOV Normal [facility] Brain/Head without Contrasto n 02-15-2025 Brain/Head without Contrast [facility] Imaging Services [address] [place] [address] Brain/Head without Contrast MR#: [id number] Acct: [id number] Name: GEOFFREY NASSAR Rep #: [id number] : 1935 F 89 From: Radames De Leon MD PCP: Dr. Ken Contreras MD Status: REG ER Study: Brain/Head without Contrast Date of Exam: 02/05 10/01 Exam# [id number] Ordering Dr: Av Valencia MD PROCEDURE: BRAIN/HEAD [...] Contrast IMPRESSION: NO ACUTE FINDINGS Reading Location: [id number] CC: Dr. Av Valencia MD; Dr. Ken Contreras MD Statue Maker: Signed Normal [facility] Emergency Department Summary on 02-15-2025 Emergency Department Summary [facility] Medical Records Department [address] [place] [address] Emergency Department Summary 02/15/25 MR#: [id number] Acct: [id number] Name: GEOFFREY NASSAR Rep #: [id number] : 1935 89 From: Av Valencia MD [...] Has history of asthma, hypothyroidism, non-ST elevation [place], GERD, and essential hypertension. She also has [...] similar symptoms: No Recent Illness/Hospitalizati on: No [facility] Medical History Presence of cardiac pacemaker [...] 1 - 2 puff inhalation Q4H PRN GA N 02/11/22 Unknown Rx aerosol inhaler Shortness [...] (50,000 uni (more content not included)... Normal [facility] Lumbar Spine 2 or 3 Viewson 02-15-2025 Lumbar Spine [address] or [address] [facility] Imaging Services [address] [place] [address] [id number] Lumbar Spine 2 or 3 Views MR#: [id number] Acct: [id number] Name: GEOFFREY NASSAR Rep #: [id number] : 1935 F 89 From: Radames De Leon MD PCP: Dr. Ken Contreras MD Status: REG ER Study: Lumbar Spine 2 or 3 Views Date of Exam: Exam# [id number] Ordering Dr: Av Valencia MD PROCEDURE: LUMBAR [...] osseous abnormality. Spondylosis. Spondylolisthesis. Scoliosis. Reading Location: [id number] CC: Dr. Av Valencia MD; Dr. Ken Contreras MD Statue Maker: Signed Normal [facility] Spine Cervical without Contr ason 02-15-2025 Spine Cervical without Contras [facility] Imaging Services [address] [place] [address] Spine Cervical without Contras MR#: [id number] Acct: [id number] Name: GEOFFREY NASSAR Rep #: [id number] : 1935 F 89 From: Radames De Leon MD PCP: Dr. Ken Contreras MD Status: REG ER Study: Spine Cervical without Contras Date of Exam: 0 02/15/25 Exam# [id number] Ordering Dr: Av Valencia MD PROCEDURE: SPINE [...] cervical spine fracture. Spondylosis. Spondylolisthesis. Reading Location: [place] [address] CC: Dr. Av Valencia MD; Dr. Ken Contreras MD Statue Maker: Signed Normal [facility] CNPNon 02-06-2025 CNPN Normal [facility] CNPNon 02-03-2025 CNPN Normal [facility] LUNG VOLUMESon 02-03-2025 LUNG VOLUMES Normal [facility] SPIROMETRY - BASELINE AND PO ST DILATORon 02-03-2025 SPIROMETRY - BASELINE AND POST DILATOR Normal [facility] CNOVon 02-02-2025 CNOV Normal [facility] 25(OH)D3 SerPl-mCncon 2024 25-hydroxyvitamin D3 [Mass/Vol] 50.5 ng/mL Normal 31.0-80.0 [facility] Comment on above: Order Comment: Speci men Type: BLOOD SPECIMENOrdering Facility: [facility] Address: [address] [place] [address] Result Comment: Clas sification of 25 [place] Vitamin D status:Deficiency/Insufficiency: < or = 30 ng/ml.Sufficiency/Optimal Levels: 31-80 ng/mLToxicity: > 100 ng/mL.Test performed by chemiluminescent immunoassay. Performed By: #### 1 989-3 ####[facility] LABCLIA [id number] [place] [address] [place] Basic metabolic 2000 panelon 01-26-2025 Anion gap [Moles/Vol] 12 mmol/L Normal 8-15 [facility] Comment on above: Order Comment: Speci men Type: BLOOD SPECIMENOrdering Facility: [facility] Address: [address] [place] [address] Performed By: #### 2 4321-2 ####[facility] TODD MILLTOWNCLIA [id number] [place] [address] [place] Calcium [Mass/Vol] 10.0 mg/dL Normal 8.5-10.2 [facility] Comment on above: Order Comment: Speci men Type: BLOOD SPECIMENOrdering Facility: [facility] Address: [address] [place] [address] Performed By: #### 2 4321-2 ####[facility] TODD MILLTOWNCLIA [id number] [place] [address] [place] Chloride [Moles/Vol] 104 mmol/L Normal 98-107 [facility] [place] Comment on above: Order Comment: Speci men Type: BLOOD SPECIMENOrdering Facility: [facility] Address: [address] [place] [address] Performed By: #### 2 4321-2 ####[facility] TODD MILLTOWNCLIA [id number] [place] [address] [place] CO2 [Moles/Vol] 23 mmol/L Normal 22-30 [facility] Comment on above: Order Comment: Speci men Type: BLOOD SPECIMENOrdering Facility: [facility] Address: [address] [place] [address] Performed By: #### 2 4321-2 ####[facility] [id number] [place] [address] [place] Creatinine [Mass/Vol] 1.44 mg/dL High 0.58-0.96 [facility] Comment on above: Order Comment: Speci men Type: BLOOD SPECIMENOrdering Facility: [facility] Address: [address] [place] [address] Performed By: #### 2 4321-2 ####[facility] [id number] [address] [place] Creatinine and Glomerular filtration rate.predicted panel (S/P/Bld) 35 mL/min/1.73m??? Low >=60 [facility] Comment on above: Order Comment: Speci men Type: BLOOD SPECIMENOrdering Facility: [facility] Address: [address] [place] [address] Result Comment: Deidra mated Glomerular Filtration Rate [...] Performed By: #### 2 4321-2 ####[facility] [id number] [place] [address] [place] Glucose [Mass/Vol] 100 mg/dL High 74-99 [facility] Comment on above: Order Comment: Speci men Type: BLOOD SPECIMENOrdering Facility: [facility] Address: [address] [place] [address] Result Comment: The [place] Diabetes Association (ADA) provides guidance for cutoff [...] Standards of Medical Care in Diabetes 2016, [place] [employer]. Diabetes Care. 2016.39(Suppl 1). Performed By: #### 2 4321-2 ####[facility]ITALRAJEdgard [id number] [place] [address] [place] Potassium [Moles/Vol] 4.2 mmol/L Normal 3.7-5.1 [facility] Comment on above: Order Comment: Speci men Type: BLOOD SPECIMENOrdering Facility: [facility] Address: [address] [place] [address] Performed By: #### 2 4321-2 ####[facility]OSPITALEd[facility] [id number] [place] [address] [place] Sodium [Moles/Vol] 139 mmol/L Normal 136-144 [facility] Comment on above: Order Comment: Speci men Type: BLOOD SPECIMENOrdering Facility: [facility] Address: [address] [id number] Performed By: #### 2 4321-2 ####[facility] [id number] [place] [address] [place] Urea nitrogen [Mass/Vol] 45 mg/dL High 7-21 [facility] Comment on above: Order Comment: Speci men Type: BLOOD SPECIMENOrdering Facility: [facility] Address: [address] [id number] Performed By: #### 2 4321-2 ####[facility] TODD MILLWNCLIA [id number] [place] [address] [place] NT-proBNP SerPl-mCncon 01-26 Natriuretic peptide.B prohormone N-Terminal [Mass/Vol] 323 pg/mL Normal <450 [facility] Comment on above: Order Comment: Speci men Type: BLOOD SPECIMENOrdering Facility: [facility] Address: [address] [place] [address] Performed By: #### 3 3762-6, 3016-3 ####[facility] [id number] [place] [address] [place] TSH SerPl-aCncon 01-26-2025 TSH Qn 0.294 m[IU]/L Normal 0.270-4.200 [facility] Comment on above: Order Comment: Speci men Type: BLOOD SPECIMENOrdering Facility: [facility] Address: [address] [place] [address] Performed By: #### 3 3762-6, 3016-3 ####[facility] [id number] [address] [place] CNOVon 01-25-2025 CNOV Normal [facility] XR CHEST 2V FRONTAL/LATon XR CHEST 2V FRONTAL/LAT Normal C [facility] CNOVon 01-11-2025 CNOV Normal [facility] CNPTOUTREACHon 01-06-2025 CNPTOUTREACH Normal [facility] CNOVon 01-05-2025 CNOV Normal [facility] CNPTOUTREACHon 12-22-2024 CNPTOUTREACH Normal [facility] CNPNon 12-19-2024 CNPN Normal [facility] CNOVon 12-16-2024 CNOV Normal [facility] 25(OH)D3 SerPl-mCncon 2024 25-hydroxyvitamin D3 [Mass/Vol] 75.9 ng/mL Normal 31.0-80.0 [facility] Comment on above: Order Comment: Speci men Type: BLOOD SPECIMENOrdering Facility: [facility] Address: [address] [place] [address] Result Comment: Clas sification of 25 [place] Vitamin D status:Deficiency/Insufficiency: < or = 30 ng/ml.Sufficiency/Optimal Levels: 31-80 ng/mLToxicity: > 100 ng/mL.Test performed by chemiluminescent immunoassay. Performed By: #### 1 989-3 ####[facility] [id number] [place] [address] [place] CNOVon 12-14-2024 CNOV Normal [facility] Ferritin SerPl-mCncon 2024 Ferritin [Mass/Vol] 147.0 ng/mL Normal 14.7-205.1 [facility] Comment on above: Order Comment: Speci men Type: BLOOD SPECIMENOrdering Facility: [facility] Address: [address] [place] [address] Performed By: #### 2 276-4, 43176-9 ####[facility] [id number] [place] [address] [place] Iron and Iron binding capaci ty panelon 12-14-2024 Iron [Mass/Vol] 74 ug/dL Normal 41-186 [facility] Comment on above: Order Comment: Speci men Type: BLOOD SPECIMENOrdering Facility: [facility] Address: [address] [place] [address] Performed By: #### 2 276-4, 15658-6 ####[facility] [id number] [place] [address] [place] Iron binding capacity [Mass/Vol] 305 ug/dL Normal 232-386 [facility] Comment on above: Order Comment: Speci men Type: BLOOD SPECIMENOrdering Facility: [facility] Address: [address] [place] [address] Performed By: #### 2 276-4, 13550-3 ####[facility] LABCLIA [id number] [place] [id number] [place] Iron/TIBC [Molar ratio] 24.3 % Normal 15.0-57.0 C [facility] Comment on above: Order Comment: Speci men Type: BLOOD SPECIMENOrdering Facility: [facility] Address: [address] [place] [address] Performed By: #### 2 276-4, 70930-9 ####[facility] LABCLIA [id number] [place] [id number] [place] CNPNon 12-13-2024 CNPN Normal [facility] CNPTOUTREACHon 12-07-2024 CNPTOUTREACH Normal [facility] CNPNon 12-01-2024 CNPN Normal [facility] CNPNon 11-29-2024 CNPN Normal [facility] CNOVon 11-24-2024 CNOV Normal [facility] XR HIP 3V PELV+ AP/LAT LTon 11-24-2024 XR HIP 3V PELV+ AP/LAT LT Normal [facility] CNPTOUTREACHon 11-23-2024 CNPTOUTREACH Normal [facility] Anion gap in Serum or Plasma Ordered By: Latonya Vargas on 11-11-2024 Anion gap [Moles/Vol] 10 mmol/L - [facility] BUN/creatinine ratioOrdered By: Latonya Vargas on 11-11-2024 Urea nitrogen/Creatinine [Mass ratio] 27.3 mg/mg High - [facility] Basic Metabolic Profile (BMP )on 11-11-2024 BUN/CRE 27.3 RATIO High 06-26 [facility] Comment on above: Order Comment: Pt wa nts to see if she needs KCL with Lasix Performed By: #### L 500.2500 ####[facility] [address] [place], [place], [id number] Calcium [Mass/Vol] 9.5 mg/dL Normal 7.6-11.0 [facility] Comment on above: Order Comment: Pt ks nts to see if she needs KCL with Lasix Performed By: #### L 500.2500 ####[facility] [address] [facility] [address] Chloride [Moles/Vol] 101 mmol/L Normal 98-108 [place] Comment on above: Order Comment: Pt ks nts to see if she needs KCL with Lasix Performed By: #### L 500.2500 ####[facility] [address] [facility] [address] CO2 [Moles/Vol] 25.8 mmol/L Normal 21.0-32.0 [facility] Comment on above: Order Comment: Pt ks nts to see if she needs KCL with Lasix Performed By: #### L 500.2500 ####[facility] [address] [facility] [address] Creatinine [Mass/Vol] 1.42 mg/dL High 0.70-1.20 [facility] Comment on above: Order Comment: Pt ks nts to see if she needs KCL with Lasix Performed By: #### L 500.2500 ####[facility] [address] [facility] [address] GAP 10 Normal 5-15 [facility] Comment on above: Order Comment: Pt ks nts to see if she needs KCL with Lasix Performed By: #### L 500.2500 ####[facility] [address] [facility] [address] GFR/1.73 sq M.predicted among non-blacks MDRD (S/P/Bld) [Vol rate/Area] 36 mL/min/{1.73_m2} Low >60 [facility] Comment on above: Order Comment: Pt ks nts to see if she needs KCL with Lasix Result Comment: mL/m in/1.73m2 CKD-EPI Creatinine Equation (2020) Performed By: #### L 500.2500 ####[facility] [address] [place], [address] Glucose [Mass/Vol] 85 mg/dL Normal 70-99 [facility] Comment on above: Order Comment: Pt ks nts to see if she needs KCL with Lasix Performed By: #### L 500.2500 ####[facility] [address] [place], [address] Potassium [Moles/Vol] 4.9 mmol/L Normal 3.3-5.1 [facility] Comment on above: Order Comment: Pt ks nts to see if she needs KCL with Lasix Performed By: #### L 500.2500 ####[facility] [address] [place], [address] Sodium [Moles/Vol] 137 mmol/L Normal 133-145 [facility] Comment on above: Order Comment: Pt ks nts to see if she needs KCL with Lasix Performed By: #### L 500.2500 ####[facility] [address] [place], [address] Urea nitrogen [Mass/Vol] 39 mg/dL High 4-19 [facility] Comment on above: Order Comment: Pt ks nts to see if she needs KCL with Lasix Performed By: #### L 500.2500 ####[facility] [address] [place], [address] Carbon dioxide, total [Moles /volume] in Central venous bloodOrdered By: Latonya Vargas on 11-11-2024 CO2 [Moles/Vol] 25.8 mmol/L 21.0-32.0 [facility] Chloride assayOrdered By: Marilyn Vargas on 11-11-2024 Chloride [Moles/Vol] 101 mmol/L 98-108 [place] GFR/1.73 sq M.predicted elissa g non-blacks MDRD (S/P/Bld) [Vol rate/Area]Ordered By: Latonya Vargas on 11-11-2024 Estimated GFR (MDRD) Non-Af Amer 36 Low >60 [facility] Comment on above: mL/min/1.73m2 CKD-EP I Creatinine Equation (2020) Glomerular filtration rate ( GFR) estimation/1.73 sq m using serum, plasma, or whole bOrdered By: Latonya Vargas on 11-11-2024 GFR/1.73 sq M.predicted among non-blacks MDRD (S/P/Bld) [Vol rate/Area] 36 mL/min/{1.73_m2} Low >60 [facility] Comment on above: mL/min/1.73m2 CKD-EP I Creatinine Equation (2020) Potassium (Unsp spec) [Mass/ Vol]Ordered By: Latonya Vargas on 11-11-2024 Potassium [Moles/Vol] 4.9 mmol/L 3.3-5.1 [facility] Potassium measurement (mass/ volume)Ordered By: Latonya Vargas on 11-11-2024 Potassium (Unsp spec) [Mass/Vol] 4.9 mmol/L 3.3-5.1 [facility] Serum creatinine measurement (mass/volume)Ordered By: Latonya Vargas on 11-11-2024 Creatinine [Mass/Vol] 1.42 mg/dL High 0.70-1.20 [facility] Serum glucose measurement (m ass/volume)Ordered By: Latonya Vargas on 11-11-2024 Glucose [Mass/Vol] 85 mg/dL 70-99 [facility] Serum or plasma calcium jose urement (mass/volume)Ordered By: Latonya Vargas on 11-11-2024 Calcium [Mass/Vol] 9.5 mg/dL 7.6-11.0 [facility] Serum or plasma urea nitroge n measurement (mass/volume)Ordered By: Latonya Vargas on 11-11-2024 Urea nitrogen [Mass/Vol] 39 mg/dL High 4-19 [facility] Sodium levelOrdered By: Yunier Vargas on 11-11-2024 Sodium [Moles/Vol] 137 mmol/L 133-145 [facility] CNPTOUTREACHon 11-09-2024 CNPTOUTREACH Normal [facility] CNOVon 10-20-2024 CNOV Normal [facility] Brain/Head without Contrasto n 10-12-2024 Brain/Head without Contrast [facility] Imaging Services [address] [place] [id number] Brain/Head without Contrast MR#: [id number] Acct: [id number] Name: GEOFFREY NASSAR Rep #: [id number] : 1935 F 89 From: Radames De Leon MD PCP: Dr. Ken Contreras MD Status: REG CLI Study: Brain/Head without Contrast Date of Exam: 01/29 Exam# [id number] Ordering Dr: Jann Mello MD PROCEDURE: BRAIN/HEAD [...] use of iterative reconstruction technique). Reading Location: [facility] CC: Dr. Jann Mello MD; Dr. Ken Contreras MD Statue Maker: Signed Normal [facility] CNOVon 10-11-2024 CNOV Normal [facility] CNPNon 09-28-2024 CNPN Normal [facility] 12 Lead EKGon 09-05-[address] [facility] Cardiovascular Services [address] [place] [address] 12 Lead EKG 09/05/24 1757 MR#: [id number] Acct: [id number] Name: GEOFFREY NASSAR Rep #: [id number] : 1935 89 From: Zane Mcpherson MD [...] Low voltage QRS Abnormal ECG Confirmed by VIDA TONEY, ZANE ([id number]), health editor MAUREEN DOVE ([id number]) on 09/06/2024 8:01:16 AM Referred By: Confirmed By: ZANE MCPHERSON MD 09/06/24 08 Date Zane Mcpherson MD CC: Dr. Patrice Brady, DO; Dr. Ken Conrteras MD Signed Normal [facility] Absolute neutrophil countOrd ered By: Patrice Brady on 09-05-2024 Neutrophils (Bld) [#/Vol] 5.4 10*3/uL 2.0-7.7 [facility] BNP (brain natriuretic pepti de measurement)Ordered By: Patrice Brady on 09-05-2024 Natriuretic peptide B (Bld) [Mass/Vol] 26.3 pg/mL 0-100 [facility] BNP,B-Type NATRIURETIC PEPTI Lukas 09-05-2024 Natriuretic peptide B (Bld) [Mass/Vol] 26.3 pg/mL Normal 0-100 [facility] Comment on above: Performed By: #### L 503.6620, L500.2500, L100.0100, L501.4020, L501.9520 #### [facility] [place], [address] Basic Metabolic Profile (BMP )on 09-05-2024 BUN/CRE 28.8 RATIO High 10- [facility] Comment on above: Order Comment: 'TROP ' Serial specimen #1, #2 or #3: 1 Performed By: #### L 503.6620, L500.2500, L100.0100, L501.4020, L501.9520 ####[facility] [address] [place], [address] CA,Total 9.6 mg/dL Normal 8.5-10.1 [facility] Comment on above: Order Comment: 'TROP ' Serial specimen #1, #2 or #3: 1 Performed By: #### L 503.6620, L500.2500, L100.0100, L501.4020, L501.9520 ####[facility] [address] [place], [address] ECRCL 27.56 ml/min Normal [facility] Comment on above: Order Comment: 'TROP ' Serial specimen #1, #2 or #3: 1 Performed By: #### L 503.6620, L500.2500, L100.0100, L501.4020, L501.9520 ####[facility] [address] [place], [address] EST GFR - AA 46 mL/min Low >60 [facility] Comment on above: Order Comment: 'TROP ' Serial specimen #1, #2 or #3: 1 Result Comment: Afri can [place]ovan GFR Calc Performed By: #### L 503.6620, L500.2500, L100.0100, L501.4020, L501.9520 ####[facility] [address] [place], [address] GAP 6 Normal 5-15 [facility] Comment on above: Order Comment: 'TROP ' Serial specimen #1, #2 or #3: 1 Performed By: #### L 503.6620, L500.2500, L100.0100, L501.4020, L501.9520 ####[facility] [address] [place], [address] GFR/1.73 sq M.predicted among non-blacks MDRD (S/P/Bld) [Vol rate/Area] 38 mL/min/{1.73_m2} Low >60 [facility] Comment on above: Order Comment: 'TROP ' Serial specimen #1, #2 or #3: 1 Result Comment: Non- GFR Calc Performed By: #### L 503.6620, L500.2500, L100.0100, L501.4020, L501.9520 ####[facility] [address] [place], [address] Basophil percentageOrdered B y: Patrice Brady on 09-05-2024 Basophils/100 WBC (Bld) 0.7 % 0-1 [facility] Blood urea nitrogen (BUN)/cr eatinine ratioOrdered By: Patrice Brady on 09-05-2024 Urea nitrogen/Creatinine [Mass ratio] 28.8 mg/mg High - [facility] CBC W/Diff, Automatedon 08-09-2023 Absolute Lymph 2.37 X10 3/uL Normal 0.83-4.51 [facility] Comment on above: Performed By: #### L 503.6620, L500.2500, L100.0100, L501.4020, L501.9520 #### [facility] [address] [place], [address] Absolute Neut 5.4 X10 3/uL Normal 2.0-7.7 [facility] Comment on above: Performed By: #### L 503.6620, L500.2500, L100.0100, L501.4020, L501.9520 #### [facility] [address] [place], [address] Basophils/100 WBC (Bld) 0.7 % Normal 0-1 [facility] Comment on above: Performed By: #### L 503.6620, L500.2500, L100.0100, L501.4020, L501.9520 #### [facility] [address] [place], [address] Eosinophils/100 WBC (Bld) 3.3 % Normal 0-5 [facility] Comment on above: Performed By: #### L 503.6620, L500.2500, L100.0100, L501.4020, L501.9520 #### [facility] [address] [place], [address] Erythrocyte distribution width (RBC) [Ratio] 15.4 % High 11.6-14.6 [facility] Comment on above: Performed By: #### L 503.6620, L500.2500, L100.0100, L501.4020, L501.9520 #### [facility] [address] [place], [address] Hematocrit (Bld) [Volume fraction] 38.8 % Normal 37-47 [facility] Comment on above: Performed By: #### L 503.6620, L500.2500, L100.0100, L501.4020, L501.9520 #### [facility] [address] [place], [address] Hemoglobin (Bld) [Mass/Vol] 12.3 g/dL Normal 12.0-15.0 [facility] Comment on above: Performed By: #### L 503.6620, L500.2500, L100.0100, L501.4020, L501.9520 #### [facility] [address] [place], [address] IG% 0.400 Normal 0.0-0.9 [facility] Comment on above: Result Comment: IG% - Immature Granulocytes (promyelocytes, myelocytes and metamyelocytes) > 1% indicates that a LEFT SHIFT is Present. Performed By: #### L 503.6620, L500.2500, L100.0100, L501.4020, L501.9520 #### [facility] [address] [place], [address] Lymphocytes/100 WBC (Bld) 26.0 % Normal 19-41 [facility] Comment on above: Performed By: #### L 503.6620, L500.2500, L100.0100, L501.4020, L501.9520 #### [facility] [address] [place], [address] MCH (RBC) [Entitic mass] 30.4 pg Normal 27.0-32.0 [facility] Comment on above: Performed By: #### L 503.6620, L500.2500, L100.0100, L501.4020, L501.9520 #### [facility] [address] [place], [address] MCHC (RBC) [Mass/Vol] 31.7 g/dL Low 32-36 [facility] Comment on above: Performed By: #### L 503.6620, L500.2500, L100.0100, L501.4020, L501.9520 #### [facility] [address] [place], [address] MCV (RBC) [Entitic vol] 95.8 fL Normal 81-99 [facility] Comment on above: Performed By: #### L 503.6620, L500.2500, L100.0100, L501.4020, L501.9520 #### [facility] [address] [place], [address] Monocytes/100 WBC (Bld) 10.6 % High 0-10 [facility] Comment on above: Performed By: #### L 503.6620, L500.2500, L100.0100, L501.4020, L501.9520 #### [facility] [address] [place], [address] Neutrophils/100 WBC (Bld) 59.0 % Normal 47-70 [facility] Comment on above: Performed By: #### L 503.6620, L500.2500, L100.0100, L501.4020, L501.9520 #### [facility] [address] [place], [address] Nucleated RBC (Bld) [#/Vol] 0 10*3/uL Normal 0-5 [facility] Comment on above: Performed By: #### L 503.6620, L500.2500, L100.0100, L501.4020, L501.9520 #### [facility] [address] [place], [address] Platelet mean volume (Bld) [Entitic vol] 9.8 fL Normal 6.2-12.0 [facility] Comment on above: Performed By: #### L 503.6620, L500.2500, L100.0100, L501.4020, L501.9520 #### [facility] [address] [place], [address] Platelets (Bld) [#/Vol] 259 10*3/uL Normal 150-450 [facility] Comment on above: Performed By: #### L 503.6620, L500.2500, L100.0100, L501.4020, L501.9520 #### [facility] [address] [place], [address] RBC (Bld) [#/Vol] 4.05 10*6/uL Low 4.2-5.4 [facility] Comment on above: Performed By: #### L 503.6620, L500.2500, L100.0100, L501.4020, L501.9520 #### [facility] [address] [place], [address] RDW SD 53.9 fl High 35.1-43.9 [facility] Comment on above: Performed By: #### L 503.6620, L500.2500, L100.0100, L501.4020, L501.9520 #### [facility] [address] [place], [address] WBC (Bld) [#/Vol] 9.1 10*3/uL Normal 4.4-11.0 [facility] Comment on above: Performed By: #### L 503.6620, L500.2500, L100.0100, L501.4020, L501.9520 #### [facility] [address] [place], [address] Carbon dioxide measurementOr dered By: Patrice Brady on 09-05-2024 CO2 [Moles/Vol] 29.0 mmol/L Normal 21.0-32.0 [facility] Comment on above: Order Comment: 'TROP ' Serial specimen #1, #2 or #3: 1 Performed By: #### L 503.6620, L500.2500, L100.0100, L501.4020, L501.9520 ####[facility] [address] [place], [address] Chest PA and Lateralon 09-05 Chest PA and Lateral [facility] Imaging Services [address] [place] [address] Chest PA and Lateral MR#: [id number] Acct: [id number] Name: GEOFFREY NASSAR Rep #: [id number] : 1935 F 89 From: Bonifacio Llamas MD PCP: Dr. Ken Contreras MD Status: REG ER Study: Chest PA and Lateral Date of Exam: 09/05/24 Exam# [id number] Ordering Dr: Patrice Brady DO [id number] EXAM: XR CHEST, 2 VIEWS CLINICAL INDICATION: [...] Patrice Brady DO; Dr. Ken Contreras MD Statue Maker: Signed Normal [facility] Chloride measurementOrdered By: Patrice Brady on 09-05-2024 Chloride [Moles/Vol] 104 mmol/L Normal 98-107 [place] Comment on above: Order Comment: 'TROP ' Serial specimen #1, #2 or #3: 1 Performed By: #### L 503.6620, L500.2500, L100.0100, L501.4020, L501.9520 ####[facility] [address] [facility] [place], [address] Emergency Department Summary on 09-05-2024 Emergency Department Summary [facility] Medical Records Department [address] [place] [address] Emergency Department Summary 09/05/24 MR#: [id number] Acct: [id number] Name: GEOFFREY NASSAR Rep #: [id number] : 1935 89 From: Patrice Brady DO [...] room air. They state they called the trading specialist and they advised her to come in for further evaluation management. [facility] Medical History Presence of cardiac pacemaker [...] hallucinati Ve (more content not included)... Normal [facility] Eosinophil percentageOrdered By: Patrice Brady on 09-05-2024 Eosinophils/100 WBC (Bld) 3.3 % 0-5 [facility] Erythrocyte distribution wid th ratioOrdered By: Patrice Brady on 09-05-2024 Erythrocyte distribution width (RBC) [Ratio] 15.4 % High 11.6-14.6 [facility] Erythrocyte distribution wid th standard deviationOrdered By: Patrice Brady on 09-05-2024 Erythrocyte distribution width (RBC) [Entitic vol] 53.9 fL High 35.1-43.9 [facility] Estimated glomerular filtrat ion rate (GFR) AmericanOrdered By: Patrice Brady on 09-05-2024 Estimated GFR (MDRD) Amer 46 mL/min Low >60 [facility] Comment on above: GFR Calc Estimation of creatinine eric aranceOrdered By: Patrice Brady on 09-05-2024 Estimated Creatinine Clearance Calc 27.56 ml/min [facility] Glomerular filtration rate ( GFR) estimationOrdered By: Patrice Brady on 09-05-2024 Estimated GFR (MDRD) Non-Af Amer 38 mL/min Low >60 [facility] Comment on above: Non- GFR Calc Glucose measurementOrdered B y: Patrice Brady on 09-05-2024 Glucose [Mass/Vol] 99 mg/dL Normal 74-106 [facility] Comment on above: Order Comment: 'TROP ' Serial specimen #1, #2 or #3: 1 Performed By: #### L 503.6620, L500.2500, L100.0100, L501.4020, L501.9520 ####[facility] [address] [place], [address] Hematocrit Auto (Bld) [Volum e fraction]Ordered By: Patrice Brady on 09-05-2024 Hematocrit (Bld) [Volume fraction] 38.8 % 37-47 [facility] Hemoglobin measurementOrdere d By: Patrice Brady on 09-05-2024 Hemoglobin (Bld) [Mass/Vol] 12.3 g/dL 12.0-15.0 [facility] Immature granulocytes/100 WB C Auto (Bld)Ordered By: Patrice Brady on 09-05-2024 Immature granulocytes/100 WBC (Bld) 0.400 % 0.0-0.9 [facility] Comment on above: IG% - Immature Granu locytes (promyelocytes, myelocytes and metamyelocytes) > 1% indicates that a LEFT SHIFT is Present. Influenza virus A and B and SARS-CoV-2 (COVID-19) and Respiratory syncytial virus RNAOrdered By: Patrice Brady on 09-05-2024 SARS-CoV-2 (COVID-19) RNA AQUILINO+probe Ql (Unsp spec) [facility] L501.4020on 09-05-2024 TROPONIN-I HS 6 pg/mL Normal 3.0-54.0 [facility] Comment on above: Order Comment: 'TROP ' Serial specimen #1, #2 or #3: 1 Result Comment: Plea se Note: New Test Units and Gender Specific Reference Ranges. For more information see Policy Stat Procedure [place] High Sensitivity Troponin (TNIH) and attachments. Performed By: #### L 503.6620, L500.2500, L100.0100, L501.4020, L501.9520 ####[facility] [address] [place], [address] Lymphocytes Auto (Unsp spec) [#/Vol]Ordered By: Patrice Brady on 09-05-2024 Lymphocytes (Bld) [#/Vol] 2.37 10*3/uL 0.83-4.51 [facility] Lymphocytes/100 WBC Auto (Un sp spec)Ordered By: Patrice Brady on 09-05-2024 Lymphocytes/100 WBC (Bld) 26.0 % 19-41 [facility] M100.678on 09-05-2024 M100.678 Pending SARS-CoV-2 (COVID 19) Negative INFLUENZA A Negative INFLUENZA B Negative RSV PCR Negative Normal [facility] Comment on above: Performed By: #### M 100.678 ####[facility] [address] [place], [address] MCV (mean corpuscular volume ) determinationOrdered By: Patrice Brady on 09-05-2024 MCV (RBC) [Entitic vol] 95.8 fL 81-99 [facility] Mean corpuscular hemoglobin (MCH) determinationOrdered By: Patrice Brady on 09-05-2024 MCH (RBC) [Entitic mass] 30.4 pg 27.0-32.0 [facility] Mean corpuscular hemoglobin concentration (MCHC) determinationOrdered By: Patrice Brady on 09-05-2024 MCHC (RBC) [Mass/Vol] 31.7 g/dL Low 32-36 [facility] Mean platelet volume determi nationOrdered By: Patrice Brady on 09-05-2024 Platelet mean volume (Bld) [Entitic vol] 9.8 fL 6.2-12.0 [facility] Monocyte percentageOrdered B y: Patrice Brady on 09-05-2024 Monocytes/100 WBC (Bld) 10.6 % High 0-10 [facility] Neutrophil percentageOrdered By: Patrice Brady on 09-05-2024 Neutrophils/100 WBC (Bld) 59.0 % 47-70 [facility] Nucleated red blood cell per centageOrdered By: Patrice Brady on 09-05-2024 Nucleated RBC/100 WBC (Bld) [Ratio] 0 % 0-5 [facility] Platelet countOrdered By: Earl Brady on 09-05-2024 Platelets (Bld) [#/Vol] 259 10*3/uL 150-450 [facility] Potassium measurementOrdered By: Patrice Brady on 09-05-2024 Potassium [Moles/Vol] 4.0 mmol/L Normal 3.5-5.1 [facility] Comment on above: Order Comment: 'TROP ' Serial specimen #1, #2 or #3: 1 Performed By: #### L 503.6620, L500.2500, L100.0100, L501.4020, L501.9520 ####[facility] [address] [place], [place], [address] RBC Auto (Bld) [#/Vol]Ordere d By: Patrice Brady on 09-05-2024 RBC (Bld) [#/Vol] 4.05 10*6/uL Low 4.2-5.4 [facility] Serum anion gap measurementO rdered By: Patrice Brady on 09-05-2024 Anion gap [Moles/Vol] 6 mmol/L 5-15 [facility] Serum or plasma calcium jose urement (mass/volume)Ordered By: Patrice Brady on 09-05-2024 Calcium [Mass/Vol] 9.6 mg/dL 8.5-10.1 [facility] Serum or plasma creatinine m easurement (mass/volume)Ordered By: Patrice Brady on 09-05-2024 Creatinine [Mass/Vol] 1.39 mg/dL High 0.55-1.02 [facility] Comment on above: The validity of the [...] #### L 503.6620, L500.2500, L100.0100, L501.4020, L501.9520 ####[facility] [address] [facility]. [place], [place], [address] Serum or plasma urea nitroge n measurement (mass/volume)Ordered By: Patrice Brady on 09-05-2024 Urea nitrogen [Mass/Vol] 40 mg/dL High 7-18 [facility] Comment on above: Order Comment: 'TROP ' Serial specimen #1, #2 or #3: 1 Performed By: #### L 503.6620, L500.2500, L100.0100, L501.4020, L501.9520 ####[facility] [address] [facility] [place], [address] Sodium levelOrdered By: Bib Brady on 09-05-2024 Sodium [Moles/Vol] 139 mmol/L Normal 136-145 [facility] Comment on above: Order Comment: 'TROP ' Serial specimen #1, #2 or #3: 1 Performed By: #### L 503.6620, L500.2500, L100.0100, L501.4020, L501.9520 ####[facility] [address] [place], [address] TSH QnOrdered By: Patrice rangel on 09-05-2024 Thyroid Stimulating Hormone (TSH) 0.438 uIU/mL 0.358-3.740 [facility] Thyroid Stim Hormone (TSH)on 09-05-2024 TSH 0.438 uIU/mL Normal 0.358-3.740 [facility] Comment on above: Order Comment: 'TROP ' Serial specimen #1, #2 or #3: 1 Performed By: #### L 503.6620, L500.2500, L100.0100, L501.4020, L501.9520 ####[facility] [address] [place], [address] Troponin IOrdered By: Patrice Brady on 09-05-2024 Troponin I High Sensitivity 6 pg/mL 3.0-54.0 [facility] Comment on above: Please Note: New Tiara t Units and Gender Specific Reference Ranges. For more information see Policy Stat Procedure [place] High Sensitivity Troponin (TNIH) and attachments. White blood cell (WBC) count Ordered By: Patrice Brady on 09-05-2024 WBC (Bld) [#/Vol] 9.1 10*3/uL 4.4-11.0 [facility] CNPNon 08-11-2024 CNPN Normal [facility] Brain/Head without Contrasto n 08-08-2024 Brain/Head without Contrast [facility] Imaging Services [address] [place] [address] Brain/Head without Contrast MR#: [id number] Acct: [id number] Name: GEOFFREY NASSAR Rep #: [id number] : 1935 F 89 From: Barak Vuong MD PCP: Dr. Ken Contreras MD Status: REG ER Study: Brain/Head without Contrast Date of Exam: 10/31 Exam# [id number] Ordering Dr: Shad Hunter MD [id number] STUDY: CT BRAIN WITHOUT CONTRAST REASON FOR [...] 16:23 EST Reading Location ID and State: [facility] / [place] Tel , Service support , CC: Dr. Shad Hunter MD; Dr. Ken Contreras MD Statue Maker: Signed Normal [facility] 08-08-2024 [facility] Normal [facility] Emergency Department Summary on 08-08-2024 Emergency Department Summary [facility] Medical Records Department [address] [place] [address] Emergency Department Summary 08/08/24 MR#: [id number] Acct: [id number] Name: GEOFFREY NASSAR Rep #: [id number] : 1935 89 From: Shad Hunter MD [...] on no anticoagulants or antiplatelets right now. [facility] Medical History Presence of cardiac pacemaker [...] (Sulfonamide Allergy (more content not included)... Normal [facility] Ribs Uni Min 3V w/PA Cheston 08-08-2024 Ribs Uni Min 3V w/PA Chest [facility] Imaging Services [address] [place], [place] [id number] Ribs Uni Min 3V w/PA Chest MR#: [id number] Acct: [id number] Name: GEOFFREY NASSAR RA Rep #: [id number] : 1935 F 89 From: Barak Vuong MD PCP: Dr. Ken Contreras MD Status: REG ER Study: Ribs Uni Min 3V w/PA Chest Date of Exam: 08/08 Exam# [id number] Ordering Dr: Shad Hunter MD [id number] STUDY: X-RAY - UNILATERAL RIBS ( LEFT [...] 16:36 EST Reading Location ID and State: [facility] / [place] Tel , Service support , CC: Dr. Shad Hunter MD; Dr. Ken Contreras MD Statue Maker: Signed Normal [facility] CNOVon 07-08-2024 CNOV Normal [facility] CNOVon 07-06-2024 CNOV Normal [facility] BNP,B-Type NATRIURETIC PEPTI Lukas 07-01-2024 Natriuretic peptide B (Bld) [Mass/Vol] 103.7 pg/mL High 0-100 [facility] Comment on above: Performed By: #### L 500.2500, L503.6620 ####[facility] [address] [place], [place], [address] Basic Metabolic Profile (BMP )on 07-01-2024 BUN/CRE 29.1 RATIO High 10-20 [facility] Comment on above: Performed By: #### L 500.2500, L503.6620 ####[facility] [address] [place], [address] CA,Total 9.7 mg/dL Normal 8.5-10.1 [facility] Comment on above: Performed By: #### L 500.2500, L503.6620 ####[facility] [address] [place], [address] Chloride [Moles/Vol] 107 mmol/L Normal 98-107 [place] Comment on above: Performed By: #### L 500.2500, L503.6620 ####[facility] [address] [place], [address] CO2 [Moles/Vol] 28.0 mmol/L Normal 21.0-32.0 [facility] Comment on above: Performed By: #### L 500.2500, L503.6620 ####[facility] [address] [place], [address] Creatinine [Mass/Vol] 1.00 mg/dL Normal 0.55-1.02 [facility] Comment on above: Result Comment: The validity of the calculated GFR GFRAA in patients over 70 years has not been determined. Clinical correlation is essential. Performed By: #### L 500.2500, L503.6620 ####[facility] [address] [place], [address] EST GFR - AA 68 mL/min Normal >60 [facility] Comment on above: Result Comment: Afri can [place] GFR Calc Performed By: #### L 500.2500, L503.6620 ####[facility] [address] [place], [address] GAP 2 Low 5-15 [facility] Comment on above: Performed By: #### L 500.2500, L503.6620 ####[facility] [address] [place], [address] GFR/1.73 sq M.predicted among non-blacks MDRD (S/P/Bld) [Vol rate/Area] 56 mL/min/{1.73_m2} Low >60 [facility] Comment on above: Result Comment: Non- GFR Calc Performed By: #### L 500.2500, L503.6620 ####[facility] [address] [place], [address] Glucose [Mass/Vol] 91 mg/dL Normal 74-106 [facility] Comment on above: Performed By: #### L 500.2500, L503.6620 ####[facility] [address] [place], [address] Potassium [Moles/Vol] 5.0 mmol/L Normal 3.5-5.1 [facility] Comment on above: Performed By: #### L 500.2500, L503.6620 ####[facility] [address] [place], [address] Sodium [Moles/Vol] 137 mmol/L Normal 136-145 [facility] Comment on above: Performed By: #### L 500.2500, L503.6620 ####[facility] [address] [place], [address] Urea nitrogen [Mass/Vol] 29 mg/dL High 7-18 [facility] Comment on above: Performed By: #### L 500.2500, L503.6620 ####[facility] [address] [place], [address] Cardiology Visit Reporton Cardiology Visit Report [facility] [address] [place], [place] [address] OFFICE VISIT Date of Service: 07/01/24 MR#: [id number] Acct: [id number] Name: GEOFFREY NASSAR Rep #: [id number] : 1935 Provider: Dr. Zane Mcpherson MD Age/Sex: 89/F Location: [facility] Status: Signed HPI [facility] History of Present Illness Details: This is [...] this she was evaluated by EP at [facility]. She underwent a PPM placement in 05/2021. 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 Normal [facility] Telephone (ROBERTLBA) GEOFFREY NASSAR ([id number]) 1935 F Date Time Provider Department 06/06/24 KAYA CARTWRIGHT JR During your visit today, we recorded the following information about you: Laurence Torres LPN 06/06/2024 10:36 AM Signed Pt called in and has not heard anything regarding testing to be done at [facility] for a Polysomnogram. I have re-faxed orders, face sheet and supporting information to [phone]. I have asked the department to call pt to schedule. Pt aware if she does not hear from [facility] to call the department to schedule [...] Assessed Reason for Visit: faxed orders to [facility]- polysomnogram [Other] Prescriptions as of 06/07/2024 [...] cervical reg (more content not included)... Normal [facility] CNPNon 06-01-2024 CNPN Normal [facility] XR Chest PA and Lateralon IMPRESSION: Nonspecific parenchymal changes in right lung base with no definite acute radiographic abnormality. Statue Maker: PSCB Transcribe Date/Time: May 28 2024 1:52P Dictated by : JASON EMERY MD This examination was interpreted and the report reviewed and electronically signed by: JASON EMERY MD on May 28 2024 1:53PM [facility] DIVISION OF RADIOLOGY * * *Final Report* [...] soft tissues: Unremarkable. DIVISION OF RADIOLOGY Provider, [facility] - 05/28/2024 * * *Final Report* [...] base with no definite acute radiographic abnormality. Statue Maker: PSCB Transcribe Date/Time: May 28 2024 1:52P Dictated by : JASON EMERY MD This examination was interpreted and the report reviewed and electronically signed by: JASON EMERY MD on May 28 2024 1:53PM EST [facility] XR Chest PA and LateralOrder ed By: Ccf Provider on 05-28-2024 [facility] Basic metabolic 2000 panelon 05-27-2024 Anion gap [Moles/Vol] 10 mmol/L Normal 8-15 [facility] Comment on above: Order Comment: Speci men Type: BLOOD SPECIMENOrdering Facility: [facility] Address: [address] [place] [address] Performed By: #### 3 3762-6, 68894-2 ####[facility] LABIA [id number] [place] [address] [place] Calcium [Mass/Vol] 9.9 mg/dL Normal 8.5-10.2 [facility] Comment on above: Order Comment: Speci men Type: BLOOD SPECIMENOrdering Facility: [facility] Address: [address] [place] [address] Performed By: #### 3 3762-6, 56687-2 ####[facility] LABCLIA [id number] [place] [address] [place] Chloride [Moles/Vol] 107 mmol/L Normal 98-107 [facility] Comment on above: Order Comment: Speci men Type: BLOOD SPECIMENOrdering Facility: [facility] Address: [address] [place] [address] Performed By: #### 3 3762-6, 53814-5 ####[facility] LABIA [id number] [place] [address] [place] CO2 [Moles/Vol] 25 mmol/L Normal 22-30 [facility] Comment on above: Order Comment: Speci men Type: BLOOD SPECIMENOrdering Facility: [facility] Address: [address] [place] [address] Performed By: #### 3 3762-6, 55088-2 ####[facility] LABIA [id number] [place] [address] [place] Creatinine [Mass/Vol] 0.83 mg/dL Normal 0.58-0.96 [facility] Comment on above: Order Comment: Speci men Type: BLOOD SPECIMENOrdering Facility: [facility] Address: [address] [place] [address] Performed By: #### 3 3762-6, 37808-0 ####[facility] [id number] [place] [address] [place] Creatinine and Glomerular filtration rate.predicted panel (S/P/Bld) 68 mL/min/1.73m??? Normal >=60 [facility] Comment on above: Order Comment: Speci men Type: BLOOD SPECIMENOrdering Facility: [facility] Address: [address] [place] [address] Result Comment: Deidra mated Glomerular Filtration Rate [...] actual GFR. Performed By: #### 3 3762-6, 69506-3 ####[facility] LABIA [id number] [place] [address] [place] Glucose [Mass/Vol] 90 mg/dL Normal 74-99 [facility] Comment on above: Order Comment: Speci men Type: BLOOD SPECIMENOrdering Facility: [facility] Address: [address] [place] [address] Result Comment: The [place] Diabetes Association (ADA) provides guidance for cutoff [...] Standards of Medical Care in Diabetes 2016, [place] Diabetes Association. Diabetes Care. 2016.39(Suppl 1). Performed By: #### 3 3762-6, 25727-6 ####[facility] LABCLIA [id number] [place] [address] [place] Potassium [Moles/Vol] 4.3 mmol/L Normal 3.7-5.1 [facility] Comment on above: Order Comment: Speci men Type: BLOOD SPECIMENOrdering Facility: [facility] Address: [address] [place] [address] Performed By: #### 3 3762-6, 85641-6 ####[facility] LABCLIA [id number] [place] [address] [place] Sodium [Moles/Vol] 142 mmol/L Normal 136-144 [facility] Comment on above: Order Comment: Speci men Type: BLOOD SPECIMENOrdering Facility: [facility] Address: [address] [place] [address] Performed By: #### 3 3762-6, 74000-5 ####[facility] LABCLIA [id number] [place] [address] [place] Urea nitrogen [Mass/Vol] 22 mg/dL High 7-21 [facility] Comment on above: Order Comment: Speci men Type: BLOOD SPECIMENOrdering Facility: [facility] Address: [address] [place] [address] Performed By: #### 3 3762-6, 88975-4 ####[facility] LABCLIA [id number] [address] STATES OF [facility] CBC panel Auto (Bld)on 05-27 Erythrocyte distribution width (RBC) [Ratio] 14.4 % 11.5 - 15.0 % [facility] Hematocrit (Bld) [Volume fraction] 41.1 % 36.0 - 46.0 % [facility] Hemoglobin (Bld) [Mass/Vol] 12.6 g/dL 11.5 - 15.5 g/dL [facility] Interpretation and review of laboratory results Normal [facility] MCH (RBC) [Entitic mass] 29.6 pg 26.0 - 34.0 pg [facility] MCHC (RBC) [Mass/Vol] 30.7 g/dL 30.5 - 36.0 g/dL [facility] MCV (RBC) [Entitic vol] 96.7 fL 80.0 - 100.0 fL [facility] Nucleated RBC (Bld) [#/Vol] NINF [facility] Platelet mean volume (Bld) [Entitic vol] 10.6 fL 9.0 - 12.7 fL [facility] Platelets (Bld) [#/Vol] 244 10*3/uL [facility] RBC (Bld) [#/Vol] 4.25 10*6/uL 3.90 - 5.2 0 m/uL [facility] WBC (Bld) [#/Vol] 6.14 10*3/uL [facility] Erythrocyte distribution width (RBC) [Ratio] 14.4 % Normal 11.5-15.0 [facility] Comment on above: Order Comment: Speci men Type: BLOOD SPECIMENOrdering Facility: [facility] Address: [address] [place] [address] Performed By: #### 5 8410-2 ####[facility] LABCLIA [id number] [place] [address] [place] Hematocrit (Bld) [Volume fraction] 41.1 % Normal 36.0-46.0 [facility] Comment on above: Order Comment: Speci men Type: BLOOD SPECIMENOrdering Facility: [facility] Address: [address] [place] [address] Performed By: #### 5 8410-2 ####[facility] LABCLIA [id number] [place] [address] [place] Hemoglobin (Bld) [Mass/Vol] 12.6 g/dL Normal 11.5-15.5 [facility] Comment on above: Order Comment: Speci men Type: BLOOD SPECIMENOrdering Facility: [facility] Address: [address] [place] [address] Performed By: #### 5 8410-2 ####[facility] LABCLIA [id number] [place] [address] [place] MCH (RBC) [Entitic mass] 29.6 pg Normal 26.0-34.0 [facility] Comment on above: Order Comment: Speci men Type: BLOOD SPECIMENOrdering Facility: [facility] Address: [address] [place] [address] Performed By: #### 5 8410-2 ####[facility] LABIA [id number] [place] [address] [place] MCHC (RBC) [Mass/Vol] 30.7 g/dL Normal 30.5-36.0 [facility] Comment on above: Order Comment: Speci men Type: BLOOD SPECIMENOrdering Facility: [facility] Address: [address] [place] [address] Performed By: #### 5 8410-2 ####[facility] LABCLIA [id number] [place] [address] [place] MCV (RBC) [Entitic vol] 96.7 fL Normal 80.0-100.0 C [facility] Comment on above: Order Comment: Speci men Type: BLOOD SPECIMENOrdering Facility: [facility] Address: [address] [place] [address] Performed By: #### 5 8410-2 ####[facility] LABIA [id number] [place] [address] [place] Nucleated RBC (Bld) [#/Vol] 10*3/uL Normal <0.01 [facility] Comment on above: Order Comment: Speci men Type: BLOOD SPECIMENOrdering Facility: [facility] Address: [address] [place] [address] Performed By: #### 5 8410-2 ####[facility] LABIA [id number] [place] [address] [place] Platelet mean volume (Bld) [Entitic vol] 10.6 fL Normal 9.0-12.7 [facility] Comment on above: Order Comment: Speci men Type: BLOOD SPECIMENOrdering Facility: [facility] Address: [address] [place] [address] Performed By: #### 5 8410-2 ####[facility] LABIA [id number] [place] [address] [place] Platelets (Bld) [#/Vol] 244 10*3/uL Normal 150-400 [facility] Comment on above: Order Comment: Speci men Type: BLOOD SPECIMENOrdering Facility: [facility] Address: [address] [place] [address] Performed By: #### 5 8410-2 ####[facility] LABIA [id number] [place] [address] [place] RBC (Bld) [#/Vol] 4.25 10*6/uL Normal 3.90-5.20 [facility] Comment on above: Order Comment: Speci men Type: BLOOD SPECIMENOrdering Facility: [facility] Address: [address] [place] [address] Performed By: #### 5 8410-2 ####[facility] LABCLIA [id number] [place] [address] [place] WBC (Bld) [#/Vol] 6.14 10*3/uL Normal 3.70-11.00 [facility] Comment on above: Order Comment: Speci men Type: BLOOD SPECIMENOrdering Facility: [facility] Address: [address] [place] [address] Performed By: #### 5 8410-2 ####[facility] LABIA [id number] [place] [address] [place] CNOVon 05-27-2024 CNOV Normal [facility] NT-proBNP SerPl-mCncon 05-27 Natriuretic peptide.B prohormone N-Terminal [Mass/Vol] 286 pg/mL Normal <450 [facility] Comment on above: Order Comment: Speci men Type: BLOOD SPECIMENOrdering Facility: [facility] Address: [address] [place] [address] Performed By: #### 3 3762-6, 60100-7 ####[facility] LABIA [id number] [place] [address] [place] XR CHEST 2V FRONTAL/LATon XR CHEST 2V FRONTAL/LAT Normal C [facility] XR Chest PA and Lateralon Radiology Study observation (narrative) [facility] CNTHERAPYon 05-26-2024 CNTHERAPY Normal [facility] CNPNon 05-25-2024 CNPN Normal [facility] CNTHERAPYon 05-20-2024 CNTHERAPY Normal [facility] CNOVon 05-16-2024 CNOV Normal [facility] CNPNon 05-16-2024 CNPN Normal [facility] CNOVon 05-13-2024 CNOV Normal [facility] CNPNon 05-13-2024 CNPN Normal [facility] ECG COMPLETEon 05-13-2024 ECG COMPLETE Normal [facility] CNPNon 05-12-2024 CNPN Normal [facility] CNTHERAPYon 05-12-2024 CNTHERAPY Normal [facility] CNTHERAPYon 05-05-2024 CNTHERAPY Normal [facility] POLYSOMNOGRAM (PSG)/HOME SLE EP APNEA TEST (HSAT)on 05-05-2024 POLYSOMNOGRAM (PSG)/HOME SLEEP APNEA TEST (HSAT) Normal [facility] [id number] 04-27-2024 [id number] Normal [facility] CNTHERAPYon 04-26-2024 CNTHERAPY Normal [facility] THERAPY NTon 04-26-2024 THERAPY NT Normal [facility] CNOVon 04-18-2024 CNOV Normal [facility] [id number] 01-27-2024 [id number] HNO ID: [id number] Author: JOSE DIAZ CCC-SLP Service: ? Author Type: Speech Language Pathologist Type: [id number] Filed: 01/27/2024 16:46 Note Text: [facility] Speech Therapy Plan of Care Certification Patient Name: Geoffrey Nassar : 1935 [facility] #: [id number] Date: 01/27/2024 To: Ailyn Bonner, APR* From [...] Speech Communication deficits identified: Cognitive deficits RECOMMENDATION: PERIPHERAL VASCULAR TECH Recommendations: Outpatient Speech Therapy Results and Recommendations [...] and Duration: Planned Treatment Interventions: Cognitive-Linguistic Training ([id number], [id number], [id number]), Patient / Caregiver Education/ Training Current Frequency: [...] the treatment plan for Geoffrey Nassar, CCF# [id number] for the period of 01/27/24 -- 02/26/24, established on 01/27/2024. Signature certifies the need for therapy services. [facility] CNTHERAPYon 01-27-2024 CNTHERAPY OT/PT/Speech Visit (SPEMML) GEOFFREY NASSAR ([id number]) 1935 F [place] Date Time Provider Department 01/27/24 3:30 PM JOSE DIAZ Date Time Provider Department Center 01/27/2024 3:30 PM [id number] DIAZ [facility] Reason for Visit: Speech Evaluation [...] Date Reviewed: 01/21/2024 Reviewed by: Michelle Vazquez APRN.ART GILDER - Fully Assessed Prescriptions as of 01/27/2024 [...] TAB Take one(1) tablet daily. Letter Text [facility] 01-21-2024 [facility] Office Visit (NEAGCLM) GEOFFREY NASSAR ([id number]) 1935 F Date Time Provider Department 01/21/24 2:00 PM MICHELLE VAZQUEZLM During your visit today, we recorded the following information about you: Pulse Blood pressure Weight Height 59/minute 115/75 76.6 kg 1.575 m Michelle Vazquez APRN.CNP 01/21/2024 2:37 PM Signed NEUROSURGERY FOLLOW UP OFFICE NOTE Michelle Vazquez APRN.CNP Date of visit: January 21, 2024 Patient Name: Ms.Sally Barbie Nassar Date of : 1935 Current Age: [age] year old Sex: female MRN/E# [id number] Last Office Visit: 10/22/2023 CHIEF COMPLAINT: Patient presents with: Established Patient HPI: The patient presents for a follow up without new imaging for evaluation. This is an 88-year-old female with a PMHx of diverticulosis, HTN, PE, pacemaker, asthma, umbilical hernia, GERD, hypothyroidism, degenerative disc disease (lumbar) tubular adenoma of the colon who was seen for consult at [facility] on 10/03/2023 after transfer from an [...] OF Bilater (more content not included)... Normal [facility] CNOVon 11-09-2023 CNOV Office Visit (NTBIBA ) GEOFFREY NASSAR ([id number]) 1935 F [place] Date Time Provider Department [...] 15 Brought in by: Initially evaluated in [facility] ER and transferred to [facility] Imaging: CT of head - Yes, multifocal subarachnoid hemorrhages Other injuries: None Hospital Course -ASA on hold, reversed with DDAVP -1 week course of Keppra given for seizure prophylaxis -Non-surgical treatment recommended by NSGY, Monitored in ICU, repeat imaging stable -She had no swallowing difficulty, evaluated by PERIPHERAL VASCULAR TECH -OT and PT assessment done -She was [...] home when she feels wobbly especially during street sprinkler hours and at night. She uses cane [...] cleaning, laundry but she has assigned a gta to help with cleaning. She drives without any issue. She has recently signed up to grocery delivery service. She is managing her own medications. She looks after her finances. She lives with her mother and also helps and if needed. She is planning to start working with physical and Occupational Therapy. Recent labs/Imaging related to complaint: CT Brain (more content not included)... Normal [facility] CNOV Office Visit (NTBIBA ) GEOFFREY NASSAR ([id number]) 1935 F [place] Date Time Provider Department 11/09/23 1:00 PM ARACELIS PORTILLO During your visit today, we recorded the following information about you: Aracelis Portillo, PhD 11/10/2023 2:32 PM Signed traumatic Aracelis Portillo, PhD 11/10/2023 2:32 PM Signed 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 She shared [...] bleed and she was subsequently transferred to [facility] where she was admitted. Geoffrey stated that the bleed resolved without neurosurgical intervention and she was discharged home on 10/05/2023. Injury Description: Loss of Consciousness: none Post-traumatic amnesia: none Alma Coma Scale:15 Neuroimaging findings: CT scan of the brain indicated bilateral subarachnoid hemorrhages Residual physical symptoms: none COGNITIVE CONCERNS: Geoffrey denied any prior history of cognitive concerns. Subsequent to her injury she has not noted any changes in cognitive abilities and feels she is at her baseline. Activities of Daily Living: Hygiene: independent Medical Receptionist Assistant: independent - recently hired a gta and uses food delivery services from [employer] Medications: independent Finances: independent Driving: independent MEDICAL [...] auditory/visual hallucination (more content not included)... Normal [facility] CNOVon 10-22-2023 CNOV Office Visit (NEAGCLM) GEOFFREY NASSAR ([id number]) 1935 F Date Time Provider Department 10/22/23 [...] Age: [age] year old Sex: female MRN/E# [id number] Last Office Visit: Hospital follow-up CHIEF COMPLAINT: Patient presents with: Established Patient HPI: The patient presents for a hospital follow up with imaging (CT B) for evaluation. This is an 88-year-old female with a PMHx of diverticulosis, HTN, PE, pacemaker, asthma, umbilical hernia, GERD, hypothyroidism, degenerative disc disease (lumbar) tubular adenoma of the colon who was seen for consult at [facility] on 10/03/2023 after transfer from an [...] not help (more content not included)... Normal [facility] CT Head WO contraston 2023 [facility] Basic metabolic 2000 panelon 01-29-2024 Anion gap [Moles/Vol] 8 mmol/L Low 9-18 [facility] Comment on above: Order Comment: Speci men Type: BLOOD SPECIMENOrdering Facility: [facility] Address: [address] [place] [address] Performed By: #### 2 4321-2 ####[facility]ATORYCLIA [id number] [place] [address] [place] Calcium [Mass/Vol] 9.1 mg/dL Normal 8.5-10.2 [facility] Comment on above: Order Comment: Speci men Type: BLOOD SPECIMENOrdering Facility: [facility] Address: [address] [place] [address] Performed By: #### 2 4321-2 ####[facility] LABORATORYCLIA [id number] [place] [address] [place] Chloride [Moles/Vol] 101 mmol/L Normal 97-105 [facility] Comment on above: Order Comment: Speci men Type: BLOOD SPECIMENOrdering Facility: [facility] Address: [address] [place] [address] Performed By: #### 2 4321-2 ####[facility] LABORATORYCLIA [id number] [place] [address] [place] CO2 [Moles/Vol] 23 mmol/L Normal 22-30 [facility] Comment on above: Order Comment: Speci men Type: BLOOD SPECIMENOrdering Facility: [facility] Address: [address] [place] [address] Performed By: #### 2 4321-2 ####[facility]ATORYCLIA [id number] [place] [address] [place] Creatinine [Mass/Vol] 0.67 mg/dL Normal 0.58-0.96 [facility] Comment on above: Order Comment: Speci men Type: BLOOD SPECIMENOrdering Facility: [facility] Address: [address] [place] [address] Performed By: #### 2 4321-2 ####[facility] LABORATORYCLIA [id number] [place] [address] [place] Creatinine and Glomerular filtration rate.predicted panel (S/P/Bld) 85 mL/min/1.73m??? Normal >=60 [facility] Comment on above: Order Comment: Jacob chavez Type: BLOOD SPECIMENOrdering Facility: [facility] Address: [address] [place] [address] Result Comment: Deidra mated Glomerular Filtration Rate [...] By: #### 2 4321-2 ####[facility] LABORATORYCLIA [id number] [place] [address] [place] Glucose [Mass/Vol] 92 mg/dL Normal 74-99 [facility] Comment on above: Order Comment: Jacob chavez Type: BLOOD SPECIMENOrdering Facility: [facility] Address: [address] [place] [address] Result Comment: The [place] Diabetes Association (ADA) provides guidance for cutoff [...] Standards of Medical Care in Diabetes 2016, [place] [employer]. Diabetes Care. 2016.39(Suppl 1). Performed By: #### 2 4321-2 ####[facility] LABORATORYCLIA [id number] [place] [id number] [place] Potassium [Moles/Vol] 4.6 mmol/L Normal 3.7-5.1 [facility] Comment on above: Order Comment: Speci men Type: BLOOD SPECIMENOrdering Facility: [facility] Address: [address] [place] [address] Performed By: #### 2 4321-2 ####[facility] LABORATORYCLIA [id number] [place] [id number] [facility] Sodium [Moles/Vol] 132 mmol/L Low 136-144 [facility] Comment on above: Order Comment: Speci men Type: BLOOD SPECIMENOrdering Facility: [facility] Address: [address] [place] [address] Performed By: #### 2 4321-2 ####[facility] LABORATORYCLIA [id number] [place] [id number] [facility] Urea nitrogen [Mass/Vol] 17 mg/dL Normal 7-21 [facility] Comment on above: Order Comment: Speci men Type: BLOOD SPECIMENOrdering Facility: [facility] Address: [address] [place] [address] Performed By: #### 2 4321-2 ####[facility] LABORATORYCLIA [id number] [place] [id number] [facility] CASE MANAGEMon 10-05-2023 CASE MANAGEM HNO ID: [id number] Author: GRETEL CANNON LSW Service: ? Author Type: Account Executive [employer] Type: Care Mgt Progress Note Filed: 10/05/2023 [...] 05, 2023 TIME: 8:20 AM PAGER/CONTACT #: [phone] Normal [facility] CBC panel Auto (Bld)on 10-05 Erythrocyte distribution width (RBC) [Ratio] 14.2 % Normal 11.5-15.0 [facility] Comment on above: Order Comment: Speci men Type: BLOOD SPECIMENOrdering Facility: [facility] Address: [address] [place] [address] Performed By: #### 5 8410-2 ####[facility] LABORATORYCLIA [id number] [address] OF [facility] Hematocrit (Bld) [Volume fraction] 38.2 % Normal 36.0-46.0 [facility] Comment on above: Order Comment: Speci men Type: BLOOD SPECIMENOrdering Facility: [facility] Address: [address] [place] [address] Performed By: #### 5 8410-2 ####[facility] LABORATORYCLIA [id number] [address] [place] Hemoglobin (Bld) [Mass/Vol] 11.9 g/dL Normal 11.5-15.5 [facility] Comment on above: Order Comment: Speci men Type: BLOOD SPECIMENOrdering Facility: [facility] Address: [address] [place] [address] Performed By: #### 5 8410-2 ####[facility] LABORATORYCLIA [id number] [address] [place] MCH (RBC) [Entitic mass] 29.5 pg Normal 26.0-34.0 [facility] Comment on above: Order Comment: Speci men Type: BLOOD SPECIMENOrdering Facility: [facility] Address: [address] [place] [address] Performed By: #### 5 8410-2 ####[facility] LABORATORYCLIA [id number] [address] [place] MCHC (RBC) [Mass/Vol] 31.2 g/dL Normal 30.5-36.0 [facility] Comment on above: Order Comment: Speci men Type: BLOOD SPECIMENOrdering Facility: [facility] Address: [address] [place] [address] Performed By: #### 5 8410-2 ####[facility] LABORATORYCLIA [id number] [address] OF [place] MCV (RBC) [Entitic vol] 94.8 fL Normal 80.0-100.0 [facility] Comment on above: Order Comment: Speci men Type: BLOOD SPECIMENOrdering Facility: [facility] Address: [address] [place] [address] Performed By: #### 5 8410-2 ####[facility] LABORATORYCLIA [id number] [place] [address] [place] Nucleated RBC (Bld) [#/Vol] 10*3/uL Normal <0.01 [facility] Comment on above: Order Comment: Speci men Type: BLOOD SPECIMENOrdering Facility: [facility] Address: [facility] [place] [address] Performed By: #### 5 8410-2 ####[facility] LABORATORYCLIA [id number] [address] [place] Platelet mean volume (Bld) [Entitic vol] 10.3 fL Normal 9.0-12.7 [facility] Comment on above: Order Comment: Speci men Type: BLOOD SPECIMENOrdering Facility: [facility] Address: [address] [place] [address] Performed By: #### 5 8410-2 ####[facility] LABORATORYCLIA [id number] [address] [place] Platelets (Bld) [#/Vol] 205 10*3/uL Normal 150-400 [facility] Comment on above: Order Comment: Speci men Type: BLOOD SPECIMENOrdering Facility: [facility] Address: [address] [place] [address] Performed By: #### 5 8410-2 ####[facility] LABORATORYCLIA [id number] [address] [place] RBC (Bld) [#/Vol] 4.03 10*6/uL Normal 3.90-5.20 [facility] Comment on above: Order Comment: Speci men Type: BLOOD SPECIMENOrdering Facility: [facility] Address: [address] [place], [place] [address] Performed By: #### 5 8410-2 ####[facility] LABORATORYCLIA [id number] [place] [address] [facility] WBC (Bld) [#/Vol] 6.88 10*3/uL Normal 3.70-11.00 [facility] Comment on above: Order Comment: Speci men Type: BLOOD SPECIMENOrdering Facility: [facility] Address: [address] [place] [address] Performed By: #### 5 8410-2 ####[facility] LABORATORYCLIA [id number] [place] [address] [facility] CNDSon 10-05-2023 CNDS HNO ID: [id number] Author: WEN GALICIA MD Service: General Surgery [...] THE HOSPITAL: Ms. Geoffrey Nassar presented to [facility] on 10/02/2023 as a transfer from [facility] for treatment of injuries sustained [...] you become constipated, you may use any jjph-vbc-gkcpzcd treatment such as Milk of Magnesia, Sennakot, [...] call for appointment?: Yes Maxime Umanzor MD [phone] [address] [facility] [address] PCP Requested Referral Follow-Up Appointment It is recommended that you follow-up with your primary care provider after hospital discharge. When: In 2 weeks Patient/Parents to call for appointment?: Yes Ken Contreras MD [phone] [address] [facility] [place] [address] PCP Requested Referral Addition (more content not included)... Normal [facility] ALLIED HEALTHon 10-04-2023 ALLIED HEALTH HNO ID: [id number] Author: GRACE HARRIS RT(R) Service: ? Author [...] PATIENT PRESENTS WITH AN IMPLANTABLE OR ATTACHED AQUATIC LIFE LABORER: No RADIOLOGY DEPARTMENT: General X-ray: Exam(s) Completed: Chest X-Ray PERIPHERAL IV DATA: Not applicable SIGNED BY: RT Timo(R) October 04, 2023 5:31 AM [facility] Basic metabolic 2000 panelon 10-04-2023 Anion gap [Moles/Vol] 8 mmol/L Low 9-18 [facility] Comment on above: Order Comment: Speci men Type: BLOOD SPECIMENOrdering Facility: [facility] Address: [address] [place] [address] Performed By: #### 2 4321-2 ####[facility]ORATORYCLIA [id number] [place] [address] [place] Calcium [Mass/Vol] 9.2 mg/dL Normal 8.5-10.2 [facility] Comment on above: Order Comment: Speci men Type: BLOOD SPECIMENOrdering Facility: [facility] Address: [address] [place] [address] Performed By: #### 2 4321-2 ####[facility] LABORATORYCLIA [id number] [place] [address] [place] Chloride [Moles/Vol] 105 mmol/L Normal 97-105 [facility] Comment on above: Order Comment: Speci men Type: BLOOD SPECIMENOrdering Facility: [facility] Address: [address] [place] [address] Performed By: #### 2 4321-2 ####[facility] LABORATORYCLIA [id number] [place] [address] [place] CO2 [Moles/Vol] 25 mmol/L Normal 22-30 [facility] Comment on above: Order Comment: Speci men Type: BLOOD SPECIMENOrdering Facility: [facility] Address: [address] [place] [address] Performed By: #### 2 4321-2 ####[facility] LABORATORYCLIA [id number] [place] [address] [place] Creatinine [Mass/Vol] 0.83 mg/dL Normal 0.58-0.96 [facility] Comment on above: Order Comment: Speci men Type: BLOOD SPECIMENOrdering Facility: [facility] Address: [address] [place] [address] Performed By: #### 2 4321-2 ####[facility] LABORATORYCLIA [id number] [address] OF [place] Creatinine and Glomerular filtration rate.predicted panel (S/P/Bld) 69 mL/min/1.73m??? Normal >=60 [facility] Comment on above: Order Comment: Jacob chavez Type: BLOOD SPECIMENOrdering Facility: [facility] Address: [address] [place] [address] Result Comment: Deidra mated Glomerular Filtration Rate [...] By: #### 2 4321-2 ####[facility] LABORATORYCLIA [id number] [place] [address] [place] Glucose [Mass/Vol] 100 mg/dL High 74-99 [facility] Comment on above: Order Comment: Jacob chavez Type: BLOOD SPECIMENOrdering Facility: [facility] Address: [address] [place] [address] Result Comment: The [place] Diabetes Association (ADA) provides guidance for cutoff [...] Standards of Medical Care in Diabetes 2016, [place] [employer]. Diabetes Care. 2016.39(Suppl 1). Performed By: #### 2 4321-2 ####[facility] LABORATORYCLIA [id number] [place] [address] [place] Potassium [Moles/Vol] 4.1 mmol/L Normal 3.7-5.1 [facility] Comment on above: Order Comment: Jacob chavez Type: BLOOD SPECIMENOrdering Facility: [facility] Address: [address] [place] [address] Performed By: #### 2 4321-2 ####[facility] LABORATORYCLIA [id number] [address] STATES [facility] Sodium [Moles/Vol] 138 mmol/L Normal 136-144 [facility] Comment on above: Order Comment: Speci men Type: BLOOD SPECIMENOrdering Facility: [facility] Address: [address] [place] [address] Performed By: #### 2 4321-2 ####[facility] LABORATORYCLIA [id number] [address] STATES OF [facility] Urea nitrogen [Mass/Vol] 20 mg/dL Normal 7-21 [facility] Comment on above: Order Comment: Speci men Type: BLOOD SPECIMENOrdering Facility: [facility] Address: [address] [place] [address] Performed By: #### 2 4321-2 ####[facility] LABORATORYCLIA [id number] [address] CBC panel Auto (Bld)on 10-04 Erythrocyte distribution width (RBC) [Ratio] 14.8 % Normal 11.5-15.0 [facility] Comment on above: Order Comment: Speci men Type: BLOOD SPECIMENOrdering Facility: [facility] Address: [address] [place] [address] Performed By: #### 5 8410-2 ####[facility] LABORATORYCLIA [id number] [address] Hematocrit (Bld) [Volume fraction] 35.2 % Low 36.0-46.0 [facility] Comment on above: Order Comment: Speci men Type: BLOOD SPECIMENOrdering Facility: [facility] Address: [address] [place] [address] Performed By: #### 5 8410-2 ####[facility] LABORATORYCLIA [id number] [address] STATES OF [facility] Hemoglobin (Bld) [Mass/Vol] 11.2 g/dL Low 11.5-15.5 [facility] Comment on above: Order Comment: Speci men Type: BLOOD SPECIMENOrdering Facility: [facility] Address: [address] [place] [address] Performed By: #### 5 8410-2 ####[facility] LABORATORYCLIA [id number] [address] MCH (RBC) [Entitic mass] 29.7 pg Normal 26.0-34.0 [facility] Comment on above: Order Comment: Speci men Type: BLOOD SPECIMENOrdering Facility: [facility] Address: [address] [place] [address] Performed By: #### 5 8410-2 ####[facility] LABORATORYCLIA [id number] [address] MCHC (RBC) [Mass/Vol] 31.8 g/dL Normal 30.5-36.0 [facility] [facility] Comment on above: Order Comment: Speci men Type: BLOOD SPECIMENOrdering Facility: [facility] Address: [address] [place] [address] Performed By: #### 5 8410-2 ####[facility] LABORATORYCLIA [id number] [address] MCV (RBC) [Entitic vol] 93.4 fL Normal 80.0-100.0 [facility] Comment on above: Order Comment: Speci men Type: BLOOD SPECIMENOrdering Facility: [facility] Address: [address] [place] [address] Performed By: #### 5 8410-2 ####[facility] LABORATORYCLIA [id number] [address] Nucleated RBC (Bld) [#/Vol] 10*3/uL Normal <0.01 [facility] Comment on above: Order Comment: Speci men Type: BLOOD SPECIMENOrdering Facility: [facility] Address: [address] [place] [address] Performed By: #### 5 8410-2 ####[facility] LABORATORYCLIA [id number] [address] Platelet mean volume (Bld) [Entitic vol] 10.2 fL Normal 9.0-12.7 [facility] Comment on above: Order Comment: Speci men Type: BLOOD SPECIMENOrdering Facility: [facility] Address: [address] [place] [address] Performed By: #### 5 8410-2 ####[facility] LABORATORYCLIA [id number] [address] [place] Platelets (Bld) [#/Vol] 206 10*3/uL Normal 150-400 [facility] Comment on above: Order Comment: Speci men Type: BLOOD SPECIMENOrdering Facility: [facility] Address: [address] [place] [address] Performed By: #### 5 8410-2 ####[facility] LABORATORYCLIA [id number] [address] STATES OF [facility] RBC (Bld) [#/Vol] 3.77 10*6/uL Low 3.90-5.20 [facility] Comment on above: Order Comment: Speci men Type: BLOOD SPECIMENOrdering Facility: [facility] Address: [address] [place] [address] Performed By: #### 5 8410-2 ####[facility] LABORATORYCLIA [id number] [address] [place] WBC (Bld) [#/Vol] 9.00 10*3/uL Normal 3.70-11.00 [facility] Comment on above: Order Comment: Speci men Type: BLOOD SPECIMENOrdering Facility: [facility] Address: [address] [place] [address] Performed By: #### 5 8410-2 ####[facility] LABORATORYCLIA [id number] [address] THERAPY NTon 10-04-2023 THERAPY NT HNO ID: [id number] Author: JENNIFER PELLETIER CCC-PERIPHERAL VASCULAR TECH Service: Speech/Swallow Author Type: Speech Language Pathologist Type: Therapy (PT/OT/Speech/Resp) Filed: 10/04/2023 11:13 Note Text: Speech Therapy Speech Evaluation SERVICE DATE: 10/04/2023 SERVICE TIME: 1055 to 1110 ROOM: [place] [address] IMPRESSION: Functional communication without limitations in: Speech, [...] Response/Score Date 11/07 Time 11/[address] [facility] 11/07 Repeat Address 11/07 20-1 11/07 Months Reversed 10/10 30 Seconds 11/07 Gcwn-Rtmo-Rylb 11/07 Go/No-Go 11/07 Address Recall 10/10 Total Patient /Caregiver Goals: Go Home PLAN: ST Frequency: Discontinue Therapy Services Reasons Inpatient Therapy Services Discontinued: No skilled needs Plan of Care Developed with: Patient TREATMENT INTERVENTIONS: Therapy Diagnosis: No Skilled Need Interventions Provided: Speech Language Eval (77426) $ Speech Language Eval (21665) Billed Units: 1 unit The following therapeutic [...] for this therapy evaluation/treatment. SIGNATURE: Jennifer Pelletier CCC-PERIPHERAL VASCULAR TECH PATIENT NAME: Geoffrey Nassar DATE: October 04, 2023 TIME: 11:12 AM Normal [facility] THERAPY NT HNO ID: [id number] Author: MAC CONNOLLY, OTR/L Service: Occupational Therapy Author Type: Occupational Therapist Type: Therapy (PT/OT/Speech/Resp) Filed: 10/04/2023 11:04 Note Text: Occupational Therapy Evaluation Summary SERVICE DATE: 10/04/2023 SERVICE TIME: 0950 to 1037 ROOM: [place] [address] OT 6 Clicks Score: 16 DISCHARGE RECOMMENDATIONS [...] Impaired cognition Recommended Discharge Equipment: Shower Chair, Quarry Supervisor Open Pit, Wheeled Walker ASSESSMENT Response to Therapy Interventions: [...] Score): Negative (10/03/23) Facilitated completion of the [place] Cognitive Assessment (MOCA), which is a rapid screening instrument for mild cognitive dysfunction. Results are as follows: Version 8.1 Total Score: 16/30 Visuospatial/Executiv e Alternating Cochise Makin Visuoconstructional Skills (Shape): 0 Visuoconstructional Skills [...] Functions and Awareness TREATMENT INTERVENTIONS Evaluation, Self Alf Management (9 (more content not included)... Normal [facility] XR CHEST 1V FRONTALon 2023 XR [...] known bronchiectasis, mucous plugging, and tree-in-bud opacities. Statue Maker: PSCB Transcribe Date/Time: Oct 04 2023 5:31A Dictated by : GABRIELE VIGIL MD This examination was interpreted and the report reviewed and electronically signed by: GABRIELE VIGIL MD on Oct 04 2023 5:33AM EST [id number] N Normal [facility] 25(OH)D3 SerPl-mCncon 2023 25-hydroxyvitamin D3 [Mass/Vol] 58.6 ng/mL Normal >=30.0 [facility] Comment on above: Order Comment: Speci men Type: BLOOD SPECIMENOrdering Facility: [facility] Address: [address] [place], [place] [address] Result Comment: Clas sification of 25 [place] Vitamin D status: Deficiency: <= 20.0 ng/ml. Insufficiency: 21.0-29.0 ng/ml. Sufficiency: >= 30.0 ng/ml. Performed By: #### 1 989-3 ####[facility] LABORATORYCLIA [id number] [place] [address] [place] Basic metabolic 2000 panelon 10-03-2023 Anion gap [Moles/Vol] 7 mmol/L Low 9-18 [facility] Comment on above: Order Comment: Speci men Type: BLOOD SPECIMENOrdering Facility: [facility] Address: [address] [place] [address] Performed By: #### 1 9123-9, 2777-1, 90965-8 ####[facility] LABORATORYCLIA [id number] [place] [address] [place] Calcium [Mass/Vol] 8.6 mg/dL Normal 8.5-10.2 [facility] Comment on above: Order Comment: Speci men Type: BLOOD SPECIMENOrdering Facility: [facility] Address: [address] [place] [address] Performed By: #### 1 9123-9, 2777-, 06317-3 ####[facility] LABORATORYCLIA [id number] [place] [address] [place] Chloride [Moles/Vol] 112 mmol/L High 97-105 [facility] Comment on above: Order Comment: Speci men Type: BLOOD SPECIMENOrdering Facility: [facility] Address: [address] [place] [address] Performed By: #### 1 9123-9, 2777-1, 05848-7 ####[facility] LABORATORYCLIA [id number] [place] [id number] [place] CO2 [Moles/Vol] 25 mmol/L Normal 22-30 [facility] Comment on above: Order Comment: Speci men Type: BLOOD SPECIMENOrdering Facility: [facility] Address: [address] [place] [address] Performed By: #### 1 9123-9, 2777-1, 44735-2 ####[facility] CENTERIA [id number] [place] [id number] [place] [facility] Creatinine [Mass/Vol] 0.71 mg/dL Normal 0.58-0.96 [facility] Comment on above: Order Comment: Speckaley men Type: BLOOD SPECIMENOrdering Facility: [facility] Address: [address] [place] [address] Performed By: #### 1 9123-9, 2777-1, 26740-5 ####[facility] CENTERIA [id number] [place] [id number] [facility] Creatinine and Glomerular filtration rate.predicted panel (S/P/Bld) 83 mL/min/1.73m??? Normal >=60 [facility] Comment on above: Order Comment: Jacob chavez Type: BLOOD SPECIMENOrdering Facility: [facility] Address: [address] [place] [address] Result Comment: Deidra mated Glomerular Filtration Rate [...] actual GFR. Performed By: #### 1 9123-9, 2777-1, 36005-8 ####[facility] CENTERIA [id number] [place] [id number] [place] [facility] Glucose [Mass/Vol] 79 mg/dL Normal 74-99 [facility] Comment on above: Order Comment: Jacob chavez Type: BLOOD SPECIMENOrdering Facility: [facility] Address: [address] [place] [address] Result Comment: The [place] Diabetes Association (ADA) provides guidance for cutoff [...] Standards of Medical Care in Diabetes 2016, [place] [employer]. Diabetes Care. 2016.39(Suppl 1). Performed By: #### 1 9123-9, 2777, 64038-2 ####[facility] LABORATORYCLIA [id number] [place] [address] [place] Potassium [Moles/Vol] 4.0 mmol/L Normal 3.7-5.1 [facility] Comment on above: Order Comment: Jacob chavez Type: BLOOD SPECIMENOrdering Facility: [facility] Address: [address] [place] [address] Performed By: #### 1 9123-9, 27703-07, 48299-9 ####[facility]ORATORYCLIA [id number] [place] [address] [place] Sodium [Moles/Vol] 144 mmol/L Normal 136-144 [facility] Comment on above: Order Comment: Jacob chavez Type: BLOOD SPECIMENOrdering Facility: [facility] Address: [address] [place] [address] Performed By: #### 1 9123-9, 27703-07, 14120-3 ####[facility] LABORATORYCLIA [id number] [address] [place] Urea nitrogen [Mass/Vol] 18 mg/dL Normal 7-21 [facility] Comment on above: Order Comment: Jacob chavez Type: BLOOD SPECIMENOrdering Facility: [facility] Address: [address] [place] [address] Performed By: #### 1 9123-9, 2777, 09239-0 ####[facility] LABORATORYCLIA [id number] [place] [address] [place] CBC panel Auto (Bld)on 10-03 Erythrocyte distribution width (RBC) [Ratio] 14.3 % Normal 11.5-15.0 [facility] Comment on above: Order Comment: Speci men Type: BLOOD SPECIMENOrdering Facility: [facility] Address: [address] [place] [address] Performed By: #### 5 8410-2 ####[facility] LABORATORYCLIA [id number] [address] OF [facility] Hematocrit (Bld) [Volume fraction] 42.0 % Normal 36.0-46.0 [facility] Comment on above: Order Comment: Speci men Type: BLOOD SPECIMENOrdering Facility: [facility] Address: [address] [place] [address] Performed By: #### 5 8410-2 ####[facility] LABORATORYCLIA [id number] [address] [place] Hemoglobin (Bld) [Mass/Vol] 13.5 g/dL Normal 11.5-15.5 [facility] Comment on above: Order Comment: Speci men Type: BLOOD SPECIMENOrdering Facility: [facility] Address: [address] [place] [address] Performed By: #### 5 8410-2 ####[facility] LABORATORYCLIA [id number] [address] [place] MCH (RBC) [Entitic mass] 30.3 pg Normal 26.0-34.0 [facility] Comment on above: Order Comment: Speci men Type: BLOOD SPECIMENOrdering Facility: [facility] Address: [address] [place] [address] Performed By: #### 5 8410-2 ####[facility] LABORATORYCLIA [id number] [address] [place] MCHC (RBC) [Mass/Vol] 32.1 g/dL Normal 30.5-36.0 [facility] Comment on above: Order Comment: Speci men Type: BLOOD SPECIMENOrdering Facility: [facility] Address: [address] [place] [address] Performed By: #### 5 8410-2 ####[facility] LABORATORYCLIA [id number] [address] MCV (RBC) [Entitic vol] 94.2 fL Normal 80.0-100.0 [facility] Comment on above: Order Comment: Speci men Type: BLOOD SPECIMENOrdering Facility: [facility] Address: [address] [place] [address] Performed By: #### 5 8410-2 ####[facility] LABORATORYCLIA [id number] [address] OF [place] Nucleated RBC (Bld) [#/Vol] 10*3/uL Normal <0.01 [facility] Comment on above: Order Comment: Speci men Type: BLOOD SPECIMENOrdering Facility: [facility] Address: [address] [place] [address] Performed By: #### 5 8410-2 ####[facility]ORATORYCLIA [id number] [address] Platelet mean volume (Bld) [Entitic vol] 11.1 fL Normal 9.0-12.7 [facility] Comment on above: Order Comment: Speci men Type: BLOOD SPECIMENOrdering Facility: [facility] Address: [address] [place] [address] Performed By: #### 5 8410-2 ####[facility] LABORATORYCLIA [id number] [address] [place] Platelets (Bld) [#/Vol] 252 10*3/uL Normal 150-400 [facility] Comment on above: Order Comment: Speci men Type: BLOOD SPECIMENOrdering Facility: [facility] Address: [address] [place] [address] Performed By: #### 5 8410-2 ####[facility] LABORATORYCLIA [id number] [address] [place] RBC (Bld) [#/Vol] 4.46 10*6/uL Normal 3.90-5.20 [facility] Comment on above: Order Comment: Jacob chavez Type: BLOOD SPECIMENOrdering Facility: [facility] Address: [address] [place] [address] Performed By: #### 5 8410-2 ####[facility]TPET[facility] LABORATORYCLIA [id number] [address] OF [place] WBC (Bld) [#/Vol] 11.43 10*3/uL High 3.70-11.00 [facility] Comment on above: Order Comment: Jacob chavez Type: BLOOD SPECIMENOrdering Facility: [facility] Address: [address] [place] [address] Performed By: #### 5 8410-2 ####[facility] LABORATORYCLIA [id number] [place] [id number] [facility] CONSULTon 10-03-2023 CONSULT HNO ID: [id number] Author: SINDY ELLIS APRN.ART GILDER Service: Neurosurgery Author Type: Nurse Practitioner Type: [...] (LaMICtal) 25 mg ORAL DAILY Cindy Braun, DO albuterol HFA 90 mcg/actuation 2 Puff (PROVENTIL HFA, VENTOLIN HFA) 2 Puff INHALATION q 4 H PRN Cindy Braun, DO amLODIPine 5 mg tab(s) (NORVASC) 5 mg ORAL DAILY Max (more content not included)... Normal [facility] CT ABD/PEL W IVCONon 024 CT ABD/PEL W IVCON * * *Final Report* * * DATE OF EXAM: Oct 03 2023 2:13AM [facility] 0530 - CT ABD/PEL W IVCON [...] changes about urinary bladder. Bones/Soft Tissues: Unremarkable. Fitter / Welder (topogram) images: Unremarkable. IMPRESSION: Chest: Bronchiectasis within [...] Correlate clinically Lumbar spine: No acute findings. Statue Maker: TEMO Transcribe Date/Time: Oct 03 2023 2:21A Dictated by : CYNTHIA FELTON MD This examination was interpreted and the report reviewed and electronically signed by: CYNTHIA FELTON MD on Oct 03 2023 2:57AM EST [id number] N Normal [facility] CT BRAIN WO IVCONon 10-03-[address] BRAIN WO IVCON * * *Final Report* * * DATE OF EXAM: Oct 03 2023 1:59AM [facility] 0504 - CT BRAIN WO IVCON [...] head CT 10/02/2023 at 7:35 PM RESULT: Fitter / Welder (topogram) images: No additional significant findings Post-operative [...] similar. No new hemorrhage in the interval. Statue Maker: TEMO Transcribe Date/Time: Oct 03 2023 6:52A Dictated by : GUZMAN EVANS MD This examination was interpreted and the report reviewed and electronically signed by: GUZMAN EVANS MD on Oct 03 2023 7:01AM EST [id number] N Normal [facility] CT CHEST W IVCONon 4 CT CHEST W IVCON * * *Final Report* * * DATE OF EXAM: Oct 03 2023 2:13AM [facility] 0539 - CT CHEST W IVCON [...] changes about urinary bladder. Bones/Soft Tissues: Unremarkable. Fitter / Welder (topogram) images: Unremarkable. IMPRESSION: Chest: Bronchiectasis within [...] Correlate clinically Lumbar spine: No acute findings. Statue Maker: TEMO Transcribe Date/Time: Oct 03 2023 2:21A Dictated by : CYNTHIA FELTON MD This examination was interpreted and the report reviewed and electronically signed by: CYNTHIA FELTON MD on Oct 03 2023 2:57AM EST [id number] N Normal [facility] CT LUMBAR SPINE W RECON DATA -NBon 10-03-2023 CT LUMBAR SPINE W RECON DATA -NB * * *Final Report* * * DATE OF EXAM: Oct 03 2023 2:13AM [facility] 0481 - CT LUMBAR SPINE W [...] changes about urinary bladder. Bones/Soft Tissues: Unremarkable. Fitter / Welder (topogram) images: Unremarkable. IMPRESSION: Chest: Bronchiectasis within [...] Correlate clinically Lumbar spine: No acute findings. Statue Maker: PSCB Transcribe Date/Time: Oct 03 2023 2:21A Dictated by : CYNTHIA FELTON MD This examination was interpreted and the report reviewed and electronically signed by: CYNTHIA FELTON MD on Oct 03 2023 2:57AM EST [id number] N Normal [facility] CT T-SPINE W RECON DATA -NBo n 10-03-2023 CT T-SPINE W RECON DATA -NB * * *Final Report* * * DATE OF EXAM: Oct 03 2023 2:13AM [facility] 0485 - CT T-SPINE W RECON [...] changes about urinary bladder. Bones/Soft Tissues: Unremarkable. Fitter / Welder (topogram) images: Unremarkable. IMPRESSION: Chest: Bronchiectasis within [...] Correlate clinically Lumbar spine: No acute findings. Statue Maker: TEMO Transcribe Date/Time: Oct 03 2023 2:21A Dictated by : CYNTHIA FELTON MD This examination was interpreted and the report reviewed and electronically signed by: CYNTHIA FELTON MD on Oct 03 2023 2:57AM EST [id number] N Normal [facility] Calcium.ionized [Moles/Vol]o n 10-03-2023 Calcium.ionized (BldV) [Mass/Vol] 1.20 mmol/L Normal 1.08-1.30 [facility] Comment on above: Order Comment: Speci men Type: BLOOD SPECIMENOrdering Facility: [facility] Address: [address] [place] [address] Performed By: #### 1 995-0 ####[facility] LABORATORYCLIA [id number] [place] [address] [place] Calcium.ionized adjusted to pH 7.4 (Bld) [Moles/Vol] 1.21 mmol/L Normal 1.08-1.30 [facility] Comment on above: Order Comment: Speci men Type: BLOOD SPECIMENOrdering Facility: [facility] Address: [address] [place] [address] Performed By: #### 1 995-0 ####[facility] LABORATORYCLIA [id number] [place] [address] [facility] ECHOon 10-03-2023 Echocardiography Echocardiography Report: Transthoracic Echo [facility] Date of service: 10/03/2023 7:45:32 AM HOSPITAL Ordering physician: GRZEGORZ BEEBE Indication: Frequent PVCs Technologist: Pat Pollock [facility] Interpreting physician: Lorenzo Salazar MD PATIENT: Name: [...] deceleration time is 241 msec. TRICUSPID VALVE [place] tricuspid valve. There is mild (1+ - [...] * * Final * * * CC [facility] Image : [id number] micsSISUID [facility] ED NOTEon 10-03-2023 ED NOTE HNO ID: [id number] Author: RUFINA BAUM RN Service: Nursing Author Type: Registered Nurse Type: ED Notes Filed: 10/03/2023 01:48 Note Text: CT notified pt ready Normal [facility] ED NOTE HNO ID: [id number] Author: RUFINA BAUM RN Service: Nursing Author Type: Registered Nurse Type: ED Notes Filed: 10/03/2023 01:23 Note Text: Report called to Kelsi on [address] [facility] HISTORY PHYSICALon HISTORY PHYSICAL HNO ID: [id number] Author: ZAMZAM WOODS MD Service: General Surgery Author Type: Physician Type: H&P Filed: 10/03/2023 14:05 Note Text: Surgical Intensive Care Unit Consult Note SERVICE DATE: 10/03/2023 SERVICE TIME: 12:13 AM REASON FOR CONSULT: Head bleed REQUESTING PHYSICIAN: Dr. woods Subjective 88 year old female with PMH HTN, depression, GERD, hypothyroidism, bradycardia (S/p pacemaker), prior cholecystectomy, STEPHON BSO presents from [place] after GLF. Patient states she was throwing [...] SLING OPER STRES INCONTINENCE 2005 TONSILLECTOMY HX 1957 VAG HYST 250 GM/< [...] Negative for (more content not included)... Normal [facility] HISTORY PHYSICAL HNO ID: [id number] Author: WEN GALICIA MD Service: General Surgery Author Type: Physician Type: H&P Filed: 10/03/2023 10:37 Note Text: TRAUMA SURGERY HANDP [facility] ARRIVAL DATE: 10/02/2023 ARRIVAL TIME: 10PM INJURY DATE: 10/02/2023 INJURY TIME: unknown Subjective 88 year old female with PMH HTN, depression, GERD, hypothyroidism, bradycardia (S/p pacemaker), prior cholecystectomy, STEPHON BSO presents from [place] after GLF. Patient states she was throwing [...] COVID-19 original vaccine, age 12+ yr, monovalent ([employer] [place]) 01/23/2022 COVID-19 vaccine ([employer]) 11/15/2020 08/15/2021 hepatitis B (HepB) vaccine, 3-dose [...] INCONTINENCE 20 (more content not included)... Normal [facility] International normalized rat io (INR) calculationOrdered By: Janett Her on 10-03-2023 INR Coag (PPP) [Relative time] 1.0 {INR} Normal 0.9-1.3 [facility] Comment on above: Order Comment: Speci men Type: BLOOD SPECIMENOrdering Facility: [facility] Address: [address] [place] [address] Result Comment: Rebecca min K Antagonist (VKA) Therapeutic Range: INR 2 to 3 (Target INR of 2.5) Note: For patients treated with VKA drugs, such as warfarin, the [place] [employer] 2012 Guideline recommends [...] to 3.5 (target INR of 3). Mir WU, et al. Chest 2012, 141:7S-47S Marcia TIWARI et al. JACC 2017, 70: 252-289 Performed By: #### 1 4979-9, 73650-1 ####[facility] LABORATORYCLIA [id number] [address] [place] Magnesium SerPl-mCncon 10-03 Magnesium [Mass/Vol] 2.1 mg/dL Normal 1.7-2.3 [facility] Comment on above: Order Comment: Speci men Type: BLOOD SPECIMENOrdering Facility: [facility] Address: [address] [place] [address] Performed By: #### 1 9123-9, 2777-1, 68070-0 ####[facility] LABORATORYCLIA [id number] [address] [place] PLATELET MAPPINGon 4 ADP INHIBITION 15.3 % Normal 0-17 [facility] Comment on above: Order Comment: Speci men Type: BLOOD SPECIMENOrdering Facility: [facility] Address: [address] [place] [address] Performed By: #### P LTMAP ####[facility] LABORATORYCLIA [id number] [address] STATES [facility] ARACHIDONIC ACID INHIBITION 53.1 % High 0-11 [facility] Comment on above: Order Comment: Speci men Type: BLOOD SPECIMENOrdering Facility: [facility] Address: [address] [place] [address] Performed By: #### P LTMAP ####[facility] LABORATORYCLIA [id number] [address] Maximum amplitude activator F induced Resonance TEG (Bld) [Length] 20 mm High 2-19 [facility] Comment on above: Order Comment: Speci men Type: BLOOD SPECIMENOrdering Facility: [facility] Address: [address] [place] [address] Performed By: #### P LTMAP ####[facility] LABORATORYCLIA [id number] [address] Maximum amplitude kaolin induced after addition of heparinase Resonance TEG (Bld) [Length] 66.5 mm Normal 53-68 [facility] Comment on above: Order Comment: Speci men Type: BLOOD SPECIMENOrdering Facility: [facility] Address: [address] [place] [address] Performed By: #### P LTMAP ####[facility] LABORATORYCLIA [id number] [place] [id number] [facility] Platelet aggregation ADP induced Qn (Bld) 59.4 mm Normal 45-69 [facility] Comment on above: Order Comment: Vinkaley chavez Type: BLOOD SPECIMENOrdering Facility: [facility] Address: [address] [place] [address] Performed By: #### P LTMAP ####[facility] LABORATORYCLIA [id number] [address] Platelet aggregation arachidonate induced Qn (Bld) 41.8 mm Low 51-71 [facility] Comment on above: Order Comment: [facility] Type: BLOOD SPECIMENOrdering Facility: [facility] Address: [address] [place] [address] Performed By: #### P LTMAP ####[facility] LABORATORYCLIA [id number] [address] THROMBOGRAPH INTERP Normal [facility] Comment on above: Order Comment: Jacob [facility] Type: BLOOD SPECIMENOrdering Facility: [facility] Address: [address] [place] [address] Result Comment: The PlateletMapping Cartridge, is a [...] panel (ASPCLP). Performed By: #### P LTMAP ####[facility] [id number] [address] [place] PT panel Coag (PPP)on 2023 PT Coag (PPP) [Time] 10.2 s Normal 9.7-13.0 [facility] Comment on above: Order Comment: Speci men Type: BLOOD SPECIMENOrdering Facility: [facility] Address: [address] [place] [address] Performed By: #### 1 4979-9, 77931-8 ####[facility] LABORATORYCLIA [id number] [place] [address] [place] Phosphate SerPl-mCncon 10-03 Phosphate [Mass/Vol] 1.7 mg/dL Low 2.7-4.8 [facility] Comment on above: Order Comment: Speci men Type: BLOOD SPECIMENOrdering Facility: [facility] Address: [address] [place] [address] Performed By: #### 1 9123-9, 2777-1, 53813-8 ####[facility] LABORATORYCLIA [id number] [place] [address] [place] STAPH AUREUS PCRon S. aureus and MRSA panel AQUILINO+probe (Nose) Normal Negative [facility] Comment on above: Order Comment: Speci men Type: SWAB OF INTERNAL NOSEOrdering Facility: [facility] Address: [address] [place] [address] Result Comment: Nega tive for Staphylococcus aureus by PCR. Negative for MRSA by PCR Performed By: #### S APCR ####[facility] LABORATORYCLIA [id number] [place] [address] [place] THERAPY NTon 10-03-2023 THERAPY NT HNO ID: [id number] Author: RADHA ALVAREZ, PT Service: Physical Therapy Author Type: Physical Therapist Type: Therapy (PT/OT/Speech/Resp) Filed: 10/03/2023 16:17 Note Text: Physical Therapy Evaluation Summary SERVICE DATE: 10/03/2023 SERVICE TIME: 1515 to 1540 ROOM: [place] [address] PT 6 Clicks Score: 18 DISCHARGE RECOMMENDATIONS [...] and mobility-other TREATMENT INTERVENTIONS Evaluation, Therapeutic Activity (09171) Timed Code Treatment (minutes): 8 Skilled Treatment Time (minutes): 25 $ Evaluation-Moderate (23050) Billed Units: 1 unit Therapeutic Activity (39070) Treatment Minutes: 8 $ Therapeutic Activity (14273) Billed Units: 1 unit Pt reported dizziness [...] October 03, 2023 TIME: 4:14 PM Normal [facility] TOX SCREEN ROUT URon 024 Amphetamines Confirm (U) [Mass/Vol] Negative Normal Negative [facility] Comment on above: Order Comment: Speci men Type: URINE SPECIMENOrdering Facility: [facility] Address: [address] [place] [address] Result Comment: Cuto ff threshold at 1000 ng/mL. Performed By: #### U TOX2 ####[facility]ORATORYCLIA [id number] [place] [address] [place] BARBITURATES, URINE Negative Normal Negative [facility] Comment on above: Order Comment: Speci men Type: URINE SPECIMENOrdering Facility: [facility] Address: [address] [place] [address] Result Comment: Cuto ff threshold at 200 ng/mL. Performed By: #### U TOX2 ####[facility]ORATORYCLIA [id number] [place] [address] [place] BENZODIAZEPINES, UR Negative Normal Negative [facility] Comment on above: Order Comment: Speci men Type: URINE SPECIMENOrdering Facility: [facility] Address: [address] [place] [address] Result Comment: Cuto ff threshold at 200 ng/mL. Performed By: #### U TOX2 ####[facility]ORATORYCLIA [id number] [address] OF [facility] Cannabinoids Screen Ql (U) Negative Normal Negative [facility] Comment on above: Order Comment: Speci men Type: URINE SPECIMENOrdering Facility: [facility] Address: [address] [place] [address] Result Comment: Cuto ff threshold at 50 ng/mL. Performed By: #### U TOX2 ####[facility]ORATORYCLIA [id number] [address] Cocaine Ql (U) Negative Normal Negative [facility] Comment on above: Order Comment: Speci men Type: URINE SPECIMENOrdering Facility: [facility] Address: [address] [place] [address] Result Comment: Cuto ff threshold at 300 ng/mL. Performed By: #### U TOX2 ####[facility]ORATORYCLIA [id number] [address] OF [place] Ethanol (U) [Mass/Vol] <11 Normal <11 [facility] Comment on above: Order Comment: Speci men Type: URINE SPECIMENOrdering Facility: [facility] Address: [address] [place] [address] Performed By: #### U TOX2 ####[facility]ORATORYCLIA [id number] [address] OF [facility] Opiates Screen Ql (U) Negative Normal Negative [facility] Comment on above: Order Comment: Speci men Type: URINE SPECIMENOrdering Facility: [facility] Address: [address] [place] [address] Result Comment: Cuto ff threshold at 300 ng/mL. Performed By: #### U TOX2 ####[facility]ATORYCLIA [id number] [place] [address] oxyCODONE cutoff Screen (U) [Mass/Vol] Negative Normal Negative [facility] Comment on above: Order Comment: Speci men Type: URINE SPECIMENOrdering Facility: [facility] Address: [address] [place] [address] Result Comment: Cuto ff threshold at 100 ng/mL. Performed By: #### U TOX2 ####[facility]ORATORYCLIA [id number] [address] Phencyclidine Ql (U) Negative Normal Negative [facility] Comment on above: Order Comment: Speci men Type: URINE SPECIMENOrdering Facility: [facility] Address: [address] [place] [address] Result Comment: Cuto ff threshold at 25 ng/mL. Performed By: #### U TOX2 ####[facility]ORATORYCLIA [id number] [address] aPTT PPPon 10-03-2023 aPTT Coag (PPP) [Time] 27.6 s Normal 23.0-32.4 [facility] Comment on above: Order Comment: Speci men Type: BLOOD SPECIMENOrdering Facility: [facility] Address: [address] [place] [address] Performed By: #### 1 4979-9, 29089-2 ####[facility]ORATORYCLIA [id number] [address] Absolute lymphocyte countOrd ered By: Janett Her on 10-02-2023 Lymphocytes Auto (Unsp spec) [#/Vol] 2.01 10*3/uL 0.83-4.51 [facility] Activated partial thrombopla stin time (aPTT) in platelet poor plasma by coagulation aOrdered By: Janett Her on 10-02-2023 aPTT Coag (PPP) [Time] 26.1 s 24.1-36.2 [facility] Automated lymphocyte count a s percentage of total leukocytesOrdered By: Janett Her on 10-02-2023 Lymphocytes/100 WBC Auto (Unsp spec) 19.6 % 19-41 [facility] Basophil percentageOrdered B y: Janett Her on 10-02-2023 Basophils/100 WBC (Bld) 0.5 % 0-1 [facility] Chloride [Moles/Vol] 107 mmol/L 98-107 [place] Eosinophils/100 WBC (Bld) 3.9 % 0-5 [facility] Glucose [Mass/Vol] 101 mg/dL 74-106 [facility] Comment on above: Fasting Glucose resu lt from 100 to 125 mg/dL suggests IMPAIRED HOMEOSTASIS per A.D.A. criteria. Hemoglobin (Bld) [Mass/Vol] 12.9 g/dL 12.0-15.0 [facility] Monocytes/100 WBC (Bld) 9.4 % 0-10 [facility] Neutrophils (Bld) [#/Vol] 6.8 10*3/uL 2.0-7.7 [facility] Neutrophils/100 WBC (Bld) 65.9 % 47-70 [facility] Potassium [Moles/Vol] 4.4 mmol/L 3.5-5.1 [facility] Sodium [Moles/Vol] 138 mmol/L 136-145 [facility] WBC (Bld) [#/Vol] 10.3 10*3/uL 4.4-11.0 [facility] Determination of erythrocyte mean corpuscular volume (MCV)Ordered By: Janett Her on 10-02-2023 MCV (RBC) [Entitic vol] 93.2 fL 81-99 [facility] ED NOTEon 10-02-2023 ED NOTE HNO ID: [id number] Author: RHONDA JOHANSEN, DIONTE Service: ? Author Type: Registered Nurse Type: ED Notes Filed: 10/02/2023 22:40 Note Text: Bed: 06-ED Expected date: Expected time: Means of arrival: Comments: [place]; Head bleed Normal [facility] ED PROV NOTEon 10-02-2023 ED PROV NOTE HNO ID: [id number] Author: GRZEGORZ BEEBE DO Service: Emergency Medicine [...] CT head. GRZEGORZ ROTH 10/02/23 2316 Normal [facility] ED PROV NOTE HNO ID: [id number] Author: GRZEGORZ BEEBE DO Service: Emergency Medicine Author Type: Physician Type: ED Provider Notes Filed: 10/05/2023 23:47 Note Text: ED Provider Note Patient Name: Geoffrey Nassar : 1935 SERVICE DATE: 10/02/23 History Patient presents with: Head Injury: Patient arrives via EMS as a transfer from [place] for known head bleed. States she lost [...] the emergency department as a transfer from [place] for a known subarachnoid hemorrhage. Patient is answering questions appropriately and cooperative on my examination. 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 When [...] SLING OPER STRES INCONTINENCE 2005 TONSILLECTOMY HX 1957 VAG HYST 250 GM/< [...] 2245] B (more content not included)... Normal [facility] Erythrocyte distribution wid th ratioOrdered By: Janett Her on 10-02-2023 Erythrocyte distribution width (RBC) [Ratio] 14.2 % 11.6-14.6 [facility] Erythrocyte distribution wid th standard deviationOrdered By: Janett Her on 10-02-2023 Erythrocyte distribution width (RBC) [Entitic vol] 48.6 fL 35.1-43.9 [facility] Hematocrit Auto (Bld) [Volum e fraction]Ordered By: Janett Her on 10-02-2023 Hematocrit (Bld) [Volume fraction] 41.3 % 37-47 [facility] Immature granulocytes/100 WB C Auto (Bld)Ordered By: Janett Her on 10-02-2023 Immature granulocytes/100 WBC (Bld) 0.700 % 0.0-0.9 [facility] Comment on above: IG% - Immature Granu locytes (promyelocytes, myelocytes and metamyelocytes) > 1% indicates that a LEFT SHIFT is Present. Laboratory - Chemistry and C hemistry - challengeOrdered By: Janett Her on 10-02-2023 CO2 [Moles/Vol] 29.0 mmol/L 21.0-32.0 [facility] Urea nitrogen/Creatinine [Mass ratio] 26.2 mg/mg 10-20 [facility] Laboratory - CoagulationOrde red By: Janett Her on 10-02-2023 PT Coag (PPP) [Time] 12.8 s 11.7-14.9 [place] - Hematology and Cell countsOrdered By: Janett Her on 10-02-2023 MCH (RBC) [Entitic mass] 29.1 pg 27.0-32.0 [facility] MCHC (RBC) [Mass/Vol] 31.2 g/dL 32-36 [facility] Nucleated RBC/100 WBC (Bld) [Ratio] 0 % 0-5 [facility] Platelets (Bld) [#/Vol] 228 10*3/uL 150-450 [facility] No Panel InformationOrdered By: Janett Her on 10-02-2023 Estimated GFR (MDRD) Amer 78 mL/min >60 [facility] Comment on above: GFR Calc Estimated GFR (MDRD) Non-Af Amer 65 mL/min >60 [facility] Comment on above: Non- GFR Calc Platelet mean volume Jovan-Ec ker (Bld) [Entitic vol]Ordered By: Janett Her on 10-02-2023 Platelet mean volume (Bld) [Entitic vol] 9.9 fL 6.2-12.0 [facility] RBC Auto (Bld) [#/Vol]Ordere d By: Janett Her on 10-02-2023 RBC (Bld) [#/Vol] 4.43 10*6/uL 4.2-5.4 [facility] Serum or plasma calcium jose urement (mass/volume)Ordered By: Janett Her on 10-02-2023 Calcium [Mass/Vol] 9.5 mg/dL 8.5-10.1 [facility] Serum or plasma creatinine m easurement (mass/volume)Ordered By: Janett Her on 10-02-2023 Creatinine [Mass/Vol] 0.88 mg/dL 0.55-1.02 [facility] Comment on above: The validity of the calculated GFR & GFRAA in patients over 70 years has not been determined. Clinical correlation is essential. Serum or plasma urea nitroge n measurement (mass/volume)Ordered By: Janett Her on 10-02-2023 Urea nitrogen [Mass/Vol] 23 mg/dL 7-18 [facility] Thin prep Papanicolaou smear with manual screeningOrdered By: Janett Her on 10-02-2023 Thin prep Papanicolaou smear with manual screening 2 5-15 [facility] SOPHIE DIAG W ALEISHA LEFTon 08-04 [facility] SOPHIE SCREENINGon 07-07-2023 [facility] Absolute lymphocyte countOrd ered By: Amanda Daugherty on 05-05-2023 Lymphocytes Auto (Unsp spec) [#/Vol] 1.71 10*3/uL 0.83-4.51 [facility] Basophil percentageOrdered B y: Amanda Daugherty on 05-05-2023 Basophils/100 WBC (Bld) 0.7 % 0-1 [facility] Bilirubin [Mass/Vol] 0.20 mg/dL 0.20-1.00 [place] Comment on above: For patients on eltr ombopag therapy, use of Dimension [place] TBIL is not recommended. Chloride [Moles/Vol] 107 mmol/L 98-107 [place] Eosinophils/100 WBC (Bld) 6.7 % 0-5 [facility] Glucose [Mass/Vol] 88 mg/dL 74-106 [facility] Neutrophils (Bld) [#/Vol] 4.3 10*3/uL 2.0-7.7 [facility] Neutrophils/100 WBC (Bld) 57.4 % 47-70 [facility] Potassium [Moles/Vol] 4.9 mmol/L 3.5-5.1 [facility] Protein [Mass/Vol] 7.1 g/dL 6.4-8.2 [facility] Sodium [Moles/Vol] 140 mmol/L 136-145 [facility] WBC (Bld) [#/Vol] 7.5 10*3/uL 4.4-11.0 [facility] Blood erythrocytes count (nu mber/volume)Ordered By: Amanda Daugherty on 05-05-2023 RBC (Bld) [#/Vol] 4.52 10*6/uL 4.2-5.4 [facility] Blood hemoglobin measurement (mass/volume)Ordered By: Amanda Daugherty on 05-05-2023 Hemoglobin (Bld) [Mass/Vol] 13.1 g/dL 12.0-15.0 [facility] Blood lymphocytes/100 leukoc ytesOrdered By: Amanda Daugherty on 05-05-2023 Lymphocytes/100 WBC (Bld) 22.8 % 19-41 [facility] Blood monocytes/100 leukocyt esOrdered By: Amanda Daugherty on 05-05-2023 Monocytes/100 WBC (Bld) 11.7 % 0-10 [facility] Blood platelet mean volumeOr dered By: Amanda Daugherty on 05-05-2023 Platelet mean volume (Bld) [Entitic vol] 10.4 fL 6.2-12.0 [facility] Determination of erythrocyte mean corpuscular volume (MCV)Ordered By: Amanda Daugherty on 05-05-2023 MCV (RBC) [Entitic vol] 95.1 fL 81-99 [facility] Hematocrit Auto (Bld) [Volum e fraction]Ordered By: Amanda Daugherty on 05-05-2023 Hematocrit (Bld) [Volume fraction] 43.0 % 37-47 [facility] Laboratory - Chemistry and C hemistry - challengeOrdered By: Amanda Daugherty on 05-05-2023 ALP [Catalytic activity/Vol] 128 U/L 45-117 [facility] ALT [Catalytic activity/Vol] 17 U/L 13-56 [facility] CO2 [Moles/Vol] 29.0 mmol/L 21.0-32.0 [facility] Free T4 [Mass/Vol] 1.01 ng/dL 0.76-1.46 [facility] Globulin (S) [Mass/Vol] 3.8 g/dL 2.2-4.2 [facility] Urea nitrogen/Creatinine [Mass ratio] 22.6 mg/mg 10-20 [facility] Laboratory - Hematology and Cell countsOrdered By: Amanda Daugherty on 05-05-2023 Erythrocyte distribution width (RBC) [Entitic vol] 49.0 fL 35.1-43.9 [facility] Erythrocyte distribution width (RBC) [Ratio] 14.1 % 11.6-14.6 [facility] Immature granulocytes/100 WBC (Bld) 0.700 % 0.0-0.9 [facility] Comment on above: IG% - Immature Granu locytes (promyelocytes, myelocytes and metamyelocytes) > 1% indicates that a LEFT SHIFT is Present. MCH (RBC) [Entitic mass] 29.0 pg 27.0-32.0 [facility] Nucleated RBC/100 WBC (Bld) [Ratio] 0 % 0-5 [facility] MCHC Auto (RBC) [Mass/Vol]Or dered By: Amanda Daugherty on 05-05-2023 MCHC (RBC) [Mass/Vol] 30.5 g/dL 32-36 [facility] No Panel InformationOrdered By: Amanda Daugherty on 05-05-2023 Estimated GFR (MDRD) Amer 74 mL/min >60 [facility] Comment on above: GFR Calc Estimated GFR (MDRD) Non-Af Amer 61 mL/min >60 [facility] Comment on above: Non- GFR Calc Free Triiodothyronine (T3) pg/dL 1.8 pg/mL 2.18-3.98 [facility] Thyroid Stimulating Hormone (TSH) 0.33 uIU/mL 0.358-3.74 [facility] Vitamin D 25-Hydroxy 68.6 ng/mL [place] Comment on above: Vitamin D 25(OH) Sta tus Range Deficiency <20 ng/mL (50nmol/L) Insufficiency 20 - 30 ng/mL (50 - 75 nmol/L) Sufficiency 30 - 100 ng/mL (75 - 250 nmol/L) Toxicity >100 ng/mL (>250 nmol/L) Platelets bldOrdered By: Martín Daugherty on 05-05-2023 Platelets (Bld) [#/Vol] 234 10*3/uL 150-450 [facility] Serum or plasma albumin jose urement (mass/volume)Ordered By: Amanda Daugherty on 05-05-2023 Albumin [Mass/Vol] 3.3 g/dL 3.2-5.0 [facility] Serum or plasma albumin/glob ulin mass ratioOrdered By: Amanda Daugherty on 05-05-2023 Albumin/Globulin [Mass ratio] 0.9 {ratio} 0.9-2.4 [facility] Serum or plasma calcium jose urement (mass/volume)Ordered By: Amanda Daugherty on 05-05-2023 Calcium [Mass/Vol] 9.5 mg/dL 8.5-10.1 [facility] Serum or plasma creatinine m easurement (mass/volume)Ordered By: Amanda Daugherty on 05-05-2023 Creatinine [Mass/Vol] 0.93 mg/dL 0.55-1.02 [facility] Comment on above: The validity of the calculated GFR & GFRAA in patients over 70 years has not been determined. Clinical correlation is essential. Serum or plasma urea nitroge n measurement (mass/volume)Ordered By: Amanda Daugherty on 05-05-2023 Urea nitrogen [Mass/Vol] 21 mg/dL 7-18 [facility] Thin prep Papanicolaou smear with manual screeningOrdered By: Amanda Daugherty on 05-05-2023 Thin prep Papanicolaou smear with manual screening 19 U/L 15-37 [facility] Thin prep Papanicolaou smear with manual screening 4 5-15 [facility] Basophil percentageon 2021 Basophil percentage < 0.9 mg/dL 0.55-1.02 [place] Work Phone: No Panel Informationon 08-28 Bedside Estimated GFR (eGFR) > 60.0000 mL/min >60 [facility] Work Phone: UA DIP, URINE (POC)on 2021 BILIRUBIN UA (POCT) Negative Negative [facility] CLARITY UA (POCT) Cloudy [facility] COLOR UA (POCT) Other [facility] GLUCOSE UA (POCT) Negative Negative mg/dL [facility] HEMOGLOBIN/BLOOD UA (POCT) Trace-intact Abnormal Negative [facility] KETONE UA (POCT) Negative Negative mg/dL [facility] LEUKOCYTES UA (POCT) Moderate Abnormal Negative [facility] NITRITE UA (POCT) Positive Abnormal Negative [facility] PH UA (POCT) 5.5 4.5 - 8.0 [facility] Protein Ql (U) 30 mg/dL Abnormal Negative mg/dL [facility] SPECIFIC GRAVITY UA (POCT) 1.020 1.005 - 1.030 [facility] UROBILINOGEN UA (POCT) 0.2 E.U./dL Diamond l E.U./dL [facility] XR CHEST 2V FRONTAL/LATon [facility] XR Chest PA and Lateralon IMPRESSION: No acute radiographic abnormality. Statue Maker: TEMO Transcribe Date/Time: Jan 23 2022 3:39P [...] tissues: Unremarkable. [id number]_U _DIVISION OF RADIOLOGY Provider, [facility] - 01/23/2022 * * *Final Report* [...] Unremarkable. IMPRESSION IMPRESSION: No acute radiographic abnormality. Statue Maker: [email or web address] Transcribe Date/Time: Jan 23 2022 3:39P Dictated by : MARY HERRON MD This examination was interpreted and the report reviewed and electronically signed by: MARY HERRON MD on Jan 23 2022 3:41PM EST [facility] Radiology Study observation (narrative) [facility] XR Chest PA and LateralOrder ed By: [facility] Provider on 01-23-2022 [facility] Office Visit: acute- worseni ng coughon 07-27-2017 Alcoholism counseling (procedure) no Invalid Interpretation Code [facility] Work Phone: Dietary management education, guidance, and counseling (procedure) yes Invalid Interpretation Code [facility] Work Phone: Documentation of current medications (procedure) Done Invalid Interpretation Code [facility] Work Phone: Tobacco smoking status FLIS Never Invalid Interpretation Code [facility] Work Phone: Tobacco use [facility] Former smoker Invalid Interpretation Code [facility] Work Phone: Office Visit: HX PE, asthma, bronchiectasis & asthmaon 07-24-2017 Alcoholism counseling (procedure) no Invalid Interpretation Code [facility] Work Phone: Dietary management education, guidance, and counseling (procedure) yes Invalid Interpretation Code [facility] Work Phone: Documentation of current medications (procedure) Done Invalid Interpretation Code [facility] Work Phone: Tobacco smoking status FLIS Never Invalid Interpretation Code [facility] Work Phone: Tobacco use [facility] Former smoker Invalid Interpretation Code [facility] Work Phone: Office Visit: hiatal herniao n 05-05-2017 Fall risk assessment No Invalid Interpretation Code [facility] Work Phone: Lab Report: Thyroid Stim Hor dada (TSH)on 03-05-2017 Thyroid stimulating hormone (TSH) 0.39 u[iU]/mL Invalid Interpretation Code 0.358-3.74 [facility] Work Phone: Rx Refill: eRx Request for F LUTICASONE PROPIONATE 50 MCG/ACT Suspensionon 02-05-2017 [id number]`FLUTICASONE PROPIONATE 50 MCG/ACT Suspension```48 Gram`90`USE 2 SPRAYS IN EACH NOSTRIL EVERY DAY``4`0`11/27/2016`N o date sent`[facility]*`[id number]`FLUTICAS ONE PROPIONATE 50 MCG/ACT Suspension Quantity: 48 Gram Instructions: USE 2 SPRAYS IN EACH NOSTRIL EVERY DAY [facility] Work Phone: No Panel Information [facility] Vital Signs Date Time Vital Sign Value Performing Clinician Facility 04-07-2025 10:28-0400 Body height 157.5 cm Ashely Miller MD Work Phone: [facility] 04-07-2025 10:28-0400 Body mass index (BMI) [Ratio] 28.17 kg/m2 Ashely Miller MD Work Phone: [facility] 04-07-2025 10:28-0400 Body weight 69.85 kg Ashely Miller MD Work Phone: [facility] 04-07-2025 10:28-0400 Diastolic blood pressure 78 mm[Hg] Ashely Miller MD Work Phone: [facility] 04-07-2025 10:28-0400 Heart rate 60 /min Ashely Miller MD Work Phone: [facility] 04-07-2025 10:28-0400 Respiratory rate 16 /min Ashely Miller MD Work Phone: [facility] 04-07-2025 10:28-0400 SaO2% (BldA) [Mass fraction] 92 % Ashely Miller MD Work Phone: [facility] 04-07-2025 10:28-0400 Systolic blood pressure 128 mm[Hg] Ashely Miller MD Work Phone: [facility] 03-31-2025 13:32-0400 Body height 157.[address] Ken Contreras MD Work Phone: [facility] 03-31-2025 13:32-0400 Body mass index (BMI) [Ratio] 28 kg/m2 Dr. Ken Contreras MD Work Phone: [facility] 03-31-2025 13:32-0400 Body weight 69.[address] Ken Contreras MD Work Phone: [facility] 03-31-2025 13:32-0400 Diastolic blood pressure 60 mm[Hg] Dr. Ken Contreras MD Work Phone: [facility] 03-31-2025 13:32-0400 Heart rate 60 /min Dr. Ken Contreras MD Work Phone: [facility] 03-31-2025 13:32-0400 Systolic blood pressure 98 mm[Hg] Dr. Ken Contreras MD Work Phone: [facility] 03-28-2025 16:53-0400 Body mass index (BMI) [Ratio] 27.36 kg/m2 Jorge Jordan APRN.ART GILDER Work Phone: [facility] 03-28-2025 16:53-0400 Body temperature 97.39 [degF] Jorge Jordan APRN.ART GIL[employer] Work Phone: [facility] 03-28-2025 16:53-0400 Body weight 70.3 kg Jorge Jordan APRN.ART GILDER Work Phone: [facility] 03-28-2025 16:53-0400 Diastolic blood pressure 78 mm[Hg] Jorge Jordan APRN.ART GILDER Work Phone: [facility] 03-28-2025 16:53-0400 Heart rate 60 /min Jorge Jordan APRN.ART GILDER Work Phone: [facility] 03-28-2025 16:53-0400 Respiratory rate 18 /min Jorge Jordan APRN.ART GILDER Work Phone: [facility] 03-28-2025 16:53-0400 SaO2% (BldA) [Mass fraction] 95 % Jorge Jordan APRN.ART GILDER Work Phone: [facility] 03-28-2025 16:53-0400 Systolic blood pressure 122 mm[Hg] Jorge Jordan APRN.ART GILDER Work Phone: [facility] 03-23-2025 13:14-0400 Body mass index (BMI) [Ratio] 27.55 kg/m2 Dian Rodas MD Work Phone: [facility] 03-23-2025 13:14-0400 Body weight 70.8 kg Dian Rodas MD Work Phone: [facility] 03-23-2025 13:14-0400 Diastolic blood pressure 77 mm[Hg] Dian Rodas MD Work Phone: [facility] 03-23-2025 13:14-0400 Heart rate 60 /min Dian Rodas MD Work Phone: [facility] 03-23-2025 13:14-0400 SaO2% (BldA) [Mass fraction] 97 % Dian Rodas MD Work Phone: [facility] 03-23-2025 13:14-0400 Systolic blood pressure 126 mm[Hg] Dian Rodas MD Work Phone: [facility] 03-02-2025 11:49-0400 Body mass index (BMI) [Ratio] 27.9 kg/m2 Ken Contreras MD Work Phone: [facility] 03-02-2025 11:49-0400 Body weight 71.7 kg Ken Contreras MD Work Phone: [facility] 03-02-2025 11:49-0400 Diastolic blood pressure 68 mm[Hg] Ken Contreras MD Work Phone: [facility] 03-02-2025 11:49-0400 Heart rate 64 /min Ken Contreras MD Work Phone: [facility] 03-02-2025 11:49-0400 Respiratory rate 20 /min Ken Contreras MD Work Phone: [facility] 03-02-2025 11:49-0400 Systolic blood pressure 102 mm[Hg] Ken Contreras MD Work Phone: [facility] 02-15-2025 17:49-0400 Body temperature 98.2 [degF] Dr. Ken Contreras MD Work Phone: [facility] 02-15-2025 17:49-0400 Diastolic blood pressure 68 mm[Hg] Dr. Ken Contreras MD Work Phone: 3(844)422-501777 [place] [address] 02-15-2025 17:49-0400 Heart rate 61 /min Dr. Ken Contreras MD Work Phone: 4(427)745-487277 [place] [address] 02-15-2025 17:49-0400 Respiratory rate 18 /min Dr. Ken Contreras MD Work Phone: 3(008)155-691503 [place] [address] 02-15-2025 17:49-0400 SaO2% (BldA) [Mass fraction] 96 % Dr. Ken Contreras MD Work Phone: 7(863)423-032777 [place] [address] 02-15-2025 17:49-0400 Systolic blood pressure 116 mm[Hg] Dr. Ken Contreras MD Work Phone: 3(622)687-422977 [place] [address] 02-15-2025 16:03-0400 Body mass index (BMI) [Ratio] 31.1 kg/m2 Dr. Ken Contreras MD Work Phone: 3(338)068-758477 [place] [address] 02-15-2025 16:03-0400 Body weight 77.[address] Ken Contreras MD Work Phone: 8(459)171-802177 [place] [address] 02-15-2025 14:14-0400 Body height 157.[address] Ken Contreras MD Work Phone: 0(681)964-748477 [place] [address] 02-03-2025 14:51-0400 Body height 160.3 cm Pul Ws Work Phone: [facility] 02-03-2025 14:51-0400 Body mass index (BMI) [Ratio] 28.6 kg/m2 Pulm Wstr Work Phone: [facility] 02-03-2025 14:51-0400 Body weight 73.48 kg Pulm Wstr Work Phone: [facility] 02-03-2025 14:51-0400 Heart rate 74 /min Pulm Wstr Work Phone: [facility] 02-03-2025 14:51-0400 Respiratory rate 14 /min Pulm Wstr Work Phone: [facility] 02-02-2025 15:40-0400 Body mass index (BMI) [Ratio] 29.48 kg/m2 Ken Contreras MD Work Phone: [facility] 02-02-2025 15:40-0400 Body weight 73.1 kg Ken Contreras MD Work Phone: [facility] 02-02-2025 15:40-0400 Diastolic blood pressure 74 mm[Hg] Ken Contreras MD Work Phone: [facility] 02-02-2025 15:40-0400 Heart rate 60 /min Ken Contreras MD Work Phone: [facility] 02-02-2025 15:40-0400 Respiratory rate 18 /min Ken Contreras MD Work Phone: [facility] 02-02-2025 15:40-0400 Systolic blood pressure 104 mm[Hg] Ken Contreras MD Work Phone: [facility] 01-11-2025 15:28-0400 Diastolic blood pressure 56 mm[Hg] Ailyn Spanower DOG BOARDER.ART GILDER Work Phone: [facility] 01-11-2025 15:28-0400 Heart rate 60 /min Ailyn Spanower DOG BOARDER.ART GILDER Work Phone: [facility] 01-11-2025 15:28-0400 Respiratory rate 16 /min Ailyn Spanower DOG BOARDER.ART GILDER Work Phone: [facility] 01-11-2025 15:28-0400 SaO2% (BldA) [Mass fraction] 95 % Ailyn Spanower DOG BOARDER.ART GILDER Work Phone: [facility] 01-11-2025 15:28-0400 Systolic blood pressure 90 mm[Hg] Ailyn Wyattower DOG BOARDER.ART GILDER Work Phone: [facility] 01-05-2025 15:38-0400 Body height 157.5 cm Ken Contreras MD Work Phone: [facility] 01-05-2025 15:38-0400 Body mass index (BMI) [Ratio] 30.08 kg/m2 Ken Contreras MD Work Phone: [facility] 01-05-2025 15:38-0400 Body weight 74.6 kg Ken Contreras MD Work Phone: [facility] 01-05-2025 15:38-0400 Diastolic blood pressure 66 mm[Hg] Ken Contreras MD Work Phone: [facility] 01-05-2025 15:38-0400 Heart rate 60 /min Ken Contreras MD Work Phone: [facility] 01-05-2025 15:38-0400 Respiratory rate 18 /min Ken Contreras MD Work Phone: [facility] 01-05-2025 15:38-0400 Systolic blood pressure 118 mm[Hg] Ken Contreras MD Work Phone: [facility] 12-14-2024 14:03-0400 Diastolic blood pressure 72 mm[Hg] Cami Mars MD Work Phone: [facility] 12-14-2024 14:03-0400 Heart rate 72 /min Cami Mars MD Work Phone: [facility] 12-14-2024 14:03-0400 Respiratory rate 16 /min Cami Mars MD Work Phone: [facility] 12-14-2024 14:03-0400 SaO2% (BldA) [Mass fraction] 96 % Cami Mars MD Work Phone: [facility] 12-14-2024 14:03-0400 Systolic blood pressure 116 mm[Hg] Cami Mars MD Work Phone: [facility] 11-24-2024 17:54-0400 Body mass index (BMI) [Ratio] 31.01 kg/m2 Ken Contreras MD Work Phone: [facility] 11-24-2024 17:54-0400 Body weight 76.9 kg Ken Contreras MD Work Phone: [facility] 11-24-2024 17:54-0400 Diastolic blood pressure 59 mm[Hg] Ken Contreras MD Work Phone: [facility] 11-24-2024 17:54-0400 Heart rate 75 /min Ken Cotnreras MD Work Phone: [facility] 11-24-2024 17:54-0400 Respiratory rate 16 /min Ken Contreras MD Work Phone: [facility] 11-24-2024 17:54-0400 Systolic blood pressure 116 mm[Hg] Ken Contreras MD Work Phone: [facility] 10-20-2024 13:29-0500 Body mass index (BMI) [Ratio] 30.73 kg/m2 Ashely Miller MD Work Phone: [facility] 10-20-2024 13:29-0500 Body weight 76.2 kg Ashely Miller MD Work Phone: [facility] 10-20-2024 13:29-0500 Diastolic blood pressure 80 mm[Hg] Ashely Miller MD Work Phone: [facility] 10-20-2024 13:29-0500 Heart rate 60 /min Ashely Miller MD Work Phone: [facility] 10-20-2024 13:29-0500 Respiratory rate 14 /min Ashely Miller MD Work Phone: [facility] 10-20-2024 13:29-0500 SaO2% (BldA) [Mass fraction] 96 % Ashely Miller MD Work Phone: [facility] 10-20-2024 13:29-0500 Systolic blood pressure 126 mm[Hg] Ashely Miller MD Work Phone: [facility] 10-11-2024 14:40-0500 Body mass index (BMI) [Ratio] 30.85 kg/m2 Dia Hussain DOG BOARDER.ART GILDER Work Phone: [facility] 10-11-2024 14:40-0500 Body weight 76.5 kg Dia Hussain DOG BOARDER.ART GILDER Work Phone: [facility] 10-11-2024 14:40-0500 Diastolic blood pressure 72 mm[Hg] Dia Hussain DOG BOARDER.ART GILDER Work Phone: [facility] 10-11-2024 14:40-0500 Heart rate 58 /min Dia Hussain DOG BOARDER.ART GILDER Work Phone: [facility] 10-11-2024 14:40-0500 Respiratory rate 16 /min Dia Hussain DOG BOARDER.ART GILDER Work Phone: [facility] 10-11-2024 14:40-0500 SaO2% (BldA) [Mass fraction] 96 % Dia Hussain DOG BOARDER.ART GILDER Work Phone: [facility] 10-11-2024 14:40-0500 Systolic blood pressure 120 mm[Hg] Dia Hussain DOG BOARDER.ART GILDER Work Phone: [facility] 09-05-2024 20:00-0500 Body temperature 98.4 [degF] Dr. Ken Contreras MD Work Phone: [facility] 09-05-2024 20:00-0500 Diastolic blood pressure 92 mm[Hg] Dr. Ken Contreras MD Work Phone: 0(313)590-204777 [place] [address] 09-05-2024 20:00-0500 Heart rate 62 /min Dr. Ken Contreras MD Work Phone: 5(160)996-930177 [place] [address] 09-05-2024 20:00-0500 Respiratory rate 16 /min Dr. Ken Contreras MD Work Phone: 9(285)905-826277 [place] [address] 09-05-2024 20:00-0500 SaO2% (BldA) [Mass fraction] 98 % Dr. Ken Contreras MD Work Phone: 6(977)829-308177 [place] [address] 09-05-2024 20:00-0500 Systolic blood pressure 146 mm[Hg] Dr. Ken Contreras MD Work Phone: 2(688)410-919177 [place] [address] 09-05-2024 17:11-0500 Body height 157.[address] Ken Contreras MD Work Phone: 8(224)438-832877 [place] [address] 09-05-2024 17:11-0500 Body mass index (BMI) [Ratio] 31.4 kg/m2 Dr. Ken Contreras MD Work Phone: 9(977)066-529477 [place] [address] 09-05-2024 17:11-0500 Body weight 77.[address] Ken Contreras MD Work Phone: 0(794)151-531977 [place] [address] 08-08-2024 18:31-0500 Body temperature 97.2 [degF] Dr. Ken Contreras MD Work Phone: 4(934)787-491277 [place] [address] 08-08-2024 18:31-0500 Diastolic blood pressure 73 mm[Hg] Dr. Ken Contreras MD Work Phone: 5(803)658-215577 [place] [address] 08-08-2024 18:31-0500 Heart rate 59 /min Dr. Ken Contreras MD Work Phone: 9(017)266-452777 [place] [address] 08-08-2024 18:31-0500 Respiratory rate 18 /min Dr. Ken Contreras MD Work Phone: 2(300)700-078377 [place] [address] 08-08-2024 18:31-0500 SaO2% (BldA) [Mass fraction] 96 % Dr. Ken Contreras MD Work Phone: [facility] 08-08-2024 18:31-0500 Systolic blood pressure 118 mm[Hg] Dr. Ken Contreras MD Work Phone: [facility] 08-08-2024 14:48-0500 Body mass index (BMI) [Ratio] 31.2 kg/m2 Dr. Ken Contreras MD Work Phone: [facility] 08-08-2024 14:48-0500 Body weight 77.[address] Ken Contreras MD Work Phone: [facility] 07-08-2024 10:20-0400 Body mass index (BMI) [Ratio] 31.29 kg/m2 Jyotsna Charanjit DOG BOARDER.ART GILDER Work Phone: [facility] 07-08-2024 10:20-0400 Body weight 77.6 kg Jyotsna Charanjit DOG BOARDER.ART GILDER Work Phone: [facility] 07-08-2024 10:20-0400 Diastolic blood pressure 82 mm[Hg] Jyotsna Charanjit DOG BOARDER.ART GILDER Work Phone: [facility] 07-08-2024 10:20-0400 Heart rate 64 /min Jyotsna Charanjit DOG BOARDER.ART GILDER Work Phone: [facility] 07-08-2024 10:20-0400 Respiratory rate 18 /min Jyotsna Charanjit DOG BOARDER.ART GILDER Work Phone: [facility] 07-08-2024 10:20-0400 SaO2% (BldA) [Mass fraction] 94 % Jyotsna Charanjit DOG BOARDER.ART GILDER Work Phone: [facility] 07-08-2024 10:20-0400 Systolic blood pressure 127 mm[Hg] Jyotsna Charanjit DOG BOARDER.ART GILDER Work Phone: [facility] 07-06-2024 14:41-0400 Diastolic blood pressure 82 mm[Hg] Ailyn Bonner DOG BOARDER.ART GILDER Work Phone: [facility] 07-06-2024 14:41-0400 Heart rate 63 /min Ailyn Spanower DOG BOARDER.ART GILDER Work Phone: [facility] 07-06-2024 14:41-0400 Respiratory rate 16 /min Ailyn Spanower DOG BOARDER.ART GILDER Work Phone: [facility] 07-06-2024 14:41-0400 SaO2% (BldA) [Mass fraction] 93 % Ailyn Spanower DOG BOARDER.ART GILDER Work Phone: [facility] 07-06-2024 14:41-0400 Systolic blood pressure 118 mm[Hg] Ailyn Spanower DOG BOARDER.ART GILDER Work Phone: [facility] 05-27-2024 08:21-0400 Diastolic blood pressure 80 mm[Hg] Ken Contreras MD Work Phone: [facility] 05-27-2024 08:21-0400 Systolic blood pressure 130 mm[Hg] Ken Contreras MD Work Phone: [facility] 05-27-2024 08:18-0400 Body mass index (BMI) [Ratio] 30.81 kg/m2 Ken Contreras MD Work Phone: [facility] 05-27-2024 08:18-0400 Body weight 76.4 kg Ken Contreras MD Work Phone: [facility] 05-27-2024 08:18-0400 Heart rate 64 /min Ken Contreras MD Work Phone: [facility] 05-27-2024 08:18-0400 Respiratory rate 18 /min Ken Contreras MD Work Phone: [facility] 05-26-2024 15:00-0400 Diastolic blood pressure 67 mm[Hg] Jackie Lainez PT [facility] 05-26-2024 15:00-0400 Heart rate 60 /min Jackie Lainez PT [facility] 05-26-2024 15:00-0400 SaO2% (BldA) [Mass fraction] 92 % Jackie Lainez PT [facility] 05-26-2024 15:00-0400 Systolic blood pressure 116 mm[Hg] Jackie Lainez PT [facility] 05-20-2024 11:00-0400 SaO2% (BldA) [Mass fraction] 89 % Kaela Brasher W[employer]UR[employer] MECHANIC Work Phone: [facility] Comment on above: at start of session, recovered to 98 aft er 2 minutes 05-13-2024 09:44-0400 Body mass index (BMI) [Ratio] 31.21 kg/m2 Dia Hussain DOG BOARDER.ART GILDER Work Phone: [facility] 05-13-2024 09:44-0400 Body weight 77.4 kg Dia Hussain DOG BOARDER.ART GILDER Work Phone: [facility] 05-13-2024 09:44-0400 Diastolic blood pressure 72 mm[Hg] Dia Hussain DOG BOARDER.ART GILDER Work Phone: [facility] 05-13-2024 09:44-0400 Heart rate 62 /min Dia Hussain DOG BOARDER.ART GILDER Work Phone: [facility] 05-13-2024 09:44-0400 Respiratory rate 18 /min Dia Hussain DOG BOARDER.ART GILDER Work Phone: [facility] 05-13-2024 09:44-0400 SaO2% (BldA) [Mass fraction] 95 % Dia Hussain DOG BOARDER.ART GILDER Work Phone: [facility] 05-13-2024 09:44-0400 Systolic blood pressure 124 mm[Hg] Dia Hussain DOG BOARDER.ART GILDER Work Phone: [facility] 05-12-2024 11:00-0400 SaO2% (BldA) [Mass fraction] 97 % Kaela Brasher W[employer]UR[employer] MECHANIC Work Phone: [facility] 04-26-2024 15:00-0400 Diastolic blood pressure 78 mm[Hg] Jackie Lainez PT [facility] 04-26-2024 15:00-0400 Heart rate 70 /min Jackie Lainez PT [facility] 04-26-2024 15:00-0400 SaO2% (BldA) [Mass fraction] 95 % Jackie Lainez PT [facility] 04-26-2024 15:00-0400 Systolic blood pressure 113 mm[Hg] Jackie Lainez PT [facility] 04-18-2024 08:05-0400 Body mass index (BMI) [Ratio] 31.31 kg/m2 Kaya Cartwright Jr., MD Work Phone: [facility] 04-18-2024 08:05-0400 Body weight 77.66 kg Kaya Cartwright Jr., MD Work Phone: [facility] 04-18-2024 08:05-0400 Diastolic blood pressure 78 mm[Hg] Kaya Cartwright Jr., MD Work Phone: [facility] 04-18-2024 08:05-0400 Heart rate 60 /min Kaya Cartwright Jr., MD Work Phone: [facility] 04-18-2024 08:05-0400 SaO2% (BldA) [Mass fraction] 95 % Kaya Cartwright Jr., MD Work Phone: [facility] 04-18-2024 08:05-0400 Systolic blood pressure 122 mm[Hg] Kaya Cartwright Jr., MD Work Phone: [facility] 03-30-2024 14:54-0400 Body height 157.5 cm Dai SolHussain DOG BOARDER.ART GILDER Work Phone: [facility] 03-30-2024 14:54-0400 Body mass index (BMI) [Ratio] 30.54 kg/m2 Dia Hussain DOG BOARDER.ART GILDER Work Phone: [facility] 03-30-2024 14:54-0400 Body weight 75.75 kg Dia Hussain DOG BOARDER.ART GILDER Work Phone: [facility] 03-30-2024 14:54-0400 Diastolic blood pressure 72 mm[Hg] Dia Hussain DOG BOARDER.ART GILDER Work Phone: [facility] 03-30-2024 14:54-0400 Heart rate 60 /min Dia Lopez DOG BOARDER.ART GILDER Work Phone: [facility] 03-30-2024 14:54-0400 Respiratory rate 12 /min Dia Lopez DOG BOARDER.ART GILDER Work Phone: [facility] 03-30-2024 14:54-0400 SaO2% (BldA) [Mass fraction] 95 % Dia Lopez DOG BOARDER.ART GILDER Work Phone: [facility] 03-30-2024 14:54-0400 Systolic blood pressure 130 mm[Hg] Dia Lopez DOG BOARDER.ART GILDER Work Phone: [facility] 01-21-2024 13:47-0400 Body height 157.5 cm Michelle Vazquez DOG BOARDER.ART GILDER Work Phone: [facility] 01-21-2024 13:47-0400 Body mass index (BMI) [Ratio] 30.89 kg/m2 Michelle Vazquez DOG BOARDER.ART GILDER Work Phone: [facility] 01-21-2024 13:47-0400 Body weight 76.6 kg Michelle Vazquez DOG BOARDER.ART GILDER Work Phone: [facility] 01-21-2024 13:47-0400 Diastolic blood pressure 75 mm[Hg] Michelle Vazquez DOG BOARDER.ART GILDER Work Phone: [facility] 01-21-2024 13:47-0400 Heart rate 59 /min Michelle Vazquez DOG BOARDER.ART GILDER Work Phone: [facility] 01-21-2024 13:47-0400 SaO2% (BldA) [Mass fraction] 92 % Michelle Vazquez DOG BOARDER.ART GILDER Work Phone: [facility] 01-21-2024 13:47-0400 Systolic blood pressure 115 mm[Hg] Michelle Vazquez DOG BOARDER.ART GILDER Work Phone: [facility] 01-06-2024 14:44-0400 Body mass index (BMI) [Ratio] 30.89 kg/m2 Ailyn Wyattower DOG BOARDER.ART GILDER Work Phone: [facility] 01-06-2024 14:44-0400 Body weight 76.6 kg Ailyn Wyattower DOG BOARDER.ART GILDER Work Phone: [facility] 01-06-2024 14:44-0400 Diastolic blood pressure 55 mm[Hg] Ailyn Wyattower DOG BOARDER.ART GILDER Work Phone: [facility] 01-06-2024 14:44-0400 Heart rate 60 /min Ailyn Wyattower DOG BOARDER.ART GILDER Work Phone: [facility] 01-06-2024 14:44-0400 SaO2% (BldA) [Mass fraction] 95 % Ailyn Wyattower DOG BOARDER.ART GILDER Work Phone: [facility] 01-06-2024 14:44-0400 Systolic blood pressure 122 mm[Hg] Ailyn Wyattower DOG BOARDER.ART GILDER Work Phone: [facility] 11-09-2023 14:23-0500 Body height 157.5 cm Tremaine Landon MD Work Phone: [facility] 11-09-2023 14:23-0500 Body weight 78.02 kg Tremaine Landon MD Work Phone: [facility] 11-09-2023 14:23-0500 Diastolic blood pressure 84 mm[Hg] Tremaine Landon MD Work Phone: [facility] 11-09-2023 14:23-0500 Heart rate 71 /min Tremaine Landon MD Work Phone: [facility] 11-09-2023 14:23-0500 Respiratory rate 16 /min Tremaine Landon MD Work Phone: [facility] 11-09-2023 14:23-0500 Systolic blood pressure 148 mm[Hg] Tremaine Landon MD Work Phone: [facility] 10-22-2023 14:36-0500 Body height 162.6 cm Michelle Fegatelli DOG BOARDER.ART GILDER Work Phone: [facility] 10-22-2023 14:36-0500 Body weight 77.5 kg Michelle Fegatelli DOG BOARDER.ART GILDER Work Phone: [facility] 10-22-2023 14:36-0500 Diastolic blood pressure 76 mm[Hg] Michelle Fegatelli DOG BOARDER.ART GILDER Work Phone: [facility] 10-22-2023 14:36-0500 Heart rate 60 /min Michelle Fegatelli DOG BOARDER.ART GILDER Work Phone: [facility] 10-22-2023 14:36-0500 Respiratory rate 16 /min Michelle Fegatelli DOG BOARDER.ART GILDER Work Phone: [facility] 10-22-2023 14:36-0500 SaO2% (BldA) [Mass fraction] 95 % Michelle Fegatelli DOG BOARDER.ART GILDER Work Phone: [facility] 10-22-2023 14:36-0500 Systolic blood pressure 114 mm[Hg] Michelle Fegatelli DOG BOARDER.ART GILDER Work Phone: [facility] 10-14-2023 11:44-0500 Body temperature 98.6 [degF] Ken Contreras MD Work Phone: [facility] 10-14-2023 11:44-0500 Body weight 76.52 kg Ken Contreras MD Work Phone: [facility] 10-14-2023 11:44-0500 Diastolic blood pressure 66 mm[Hg] Ken Contreras MD Work Phone: [facility] 10-14-2023 11:44-0500 Heart rate 60 /min Ken Contreras MD Work Phone: [facility] 10-14-2023 11:44-0500 Respiratory rate 12 /min Ken Contreras MD Work Phone: [facility] 10-14-2023 11:44-0500 Systolic blood pressure 110 mm[Hg] Ken Contreras MD Work Phone: [facility] 10-02-2023 21:30-0500 Diastolic blood pressure 68 mm[Hg] Dr. Ken Contreras Work Phone: [facility] 10-02-2023 21:30-0500 Heart rate 60 /min Dr. Ken Contreras Work Phone: [facility] 10-02-2023 21:30-0500 Respiratory rate 15 /min Dr. Ken Contreras Work Phone: [facility] 10-02-2023 21:30-0500 SaO2% (BldA) [Mass fraction] 98 % Dr. Ken Contreras Work Phone: [facility] 10-02-2023 21:30-0500 Systolic blood pressure 160 mm[Hg] Dr. Ken Contreras Work Phone: [facility] 10-02-2023 18:51-0500 Body height 157.[address] Ken Contreras Work Phone: [facility] 10-02-2023 18:51-0500 Body temperature 97.9 [degF] Dr. Ken Contreras Work Phone: [facility] 09-30-2023 14:38-0500 Body height 158.5 cm Dia Lopez DOG BOARDER.ART GILDER Work Phone: [facility] 09-30-2023 14:38-0500 Body weight 78.02 kg Dia JinHussain DOG BOARDER.ART GILDER Work Phone: [facility] 09-30-2023 14:38-0500 Diastolic blood pressure 78 mm[Hg] Dia JinHussain DOG BOARDER.ART GILDER Work Phone: [facility] 09-30-2023 14:38-0500 Heart rate 61 /min Dia Lopez DOG BOARDER.ART GILDER Work Phone: [facility] 09-30-2023 14:38-0500 Respiratory rate 16 /min Dia Lopez DOG BOARDER.ART GILDER Work Phone: [facility] 09-30-2023 14:38-0500 SaO2% (BldA) [Mass fraction] 97 % Dia Lopez APRN.ART GILDER Work Phone: [facility] 09-30-2023 14:38-0500 Systolic blood pressure 108 mm[Hg] Dia Lopez APRN.ART GILDER Work Phone: [facility] 08-07-2023 13:43-0500 Body mass index (BMI) [Ratio] 31.8 kg/m2 Dr. Ken Contreras Work Phone: 2(198)146-170603 [place] [address] 08-07-2023 13:43-0500 Body weight 78.[address] Ken Contreras Work Phone: 1(137)403-162720 [address] 08-07-2023 13:43-0500 Diastolic blood pressure 73 mm[Hg] Dr. Ken Contreras Work Phone: 0(842)256-123203 [place] [address] 08-07-2023 13:43-0500 Heart rate 60 /min Dr. Ken Contreras Work Phone: 3(520)947-883703 [place] [address] 08-07-2023 13:43-0500 Respiratory rate 18 /min Dr. Ken Contreras Work Phone: 9(968)995-362703 [place] [address] 08-07-2023 13:43-0500 SaO2% (BldA) [Mass fraction] 97 % Dr. Ken Contreras Work Phone: 8(013)722-344503 [place] [address] 08-07-2023 13:43-0500 Systolic blood pressure 114 mm[Hg] Dr. Ken Contreras Work Phone: 7(931)542-453403 [place] [address] 05-27-2023 17:19-0400 Body height 157.[address] Ken Contreras Work Phone: 4(890)109-904203 [place] [address] 05-27-2023 17:19-0400 Body mass index (BMI) [Ratio] 32 kg/m2 Dr. Ken Contreras Work Phone: 8(214)946-713703 [place] [address] 05-27-2023 17:19-0400 Body temperature 97.5 [degF] Dr. Ken Contreras Work Phone: [facility] 05-27-2023 17:19-0400 Body weight 79.[address] Ken Contreras Work Phone: [facility] 05-27-2023 17:19-0400 Diastolic blood pressure 65 mm[Hg] Dr. Ken Contreras Work Phone: [facility] 05-27-2023 17:19-0400 Heart rate 59 /min Dr. Ken Contreras Work Phone: [facility] 05-27-2023 17:19-0400 Respiratory rate 16 /min Dr. Ken Contreras Work Phone: [facility] 05-27-2023 17:19-0400 SaO2% (BldA) [Mass fraction] 97 % Dr. Ken Contreras Work Phone: [facility] 05-27-2023 17:19-0400 Systolic blood pressure 138 mm[Hg] Dr. Ken Contreras Work Phone: [facility] 05-21-2023 13:48-0400 Body temperature 97.81 [degF] Dia Older DOG BOARDER.ART GILDER Work Phone: [facility] 05-21-2023 13:48-0400 Body weight 79.88 kg Dia Older DOG BOARDER.ART GILDER Work Phone: [facility] 05-21-2023 13:48-0400 Diastolic blood pressure 68 mm[Hg] Dia Older DOG BOARDER.ART GILDER Work Phone: [facility] 05-21-2023 13:48-0400 Heart rate 60 /min Dia Older DOG BOARDER.ART GILDER Work Phone: [facility] 05-21-2023 13:48-0400 Respiratory rate 18 /min Dia Older DOG BOARDER.ART GILDER Work Phone: [facility] 05-21-2023 13:48-0400 SaO2% (BldA) [Mass fraction] 99 % Dia Older DOG BOARDER.ART GILDER Work Phone: [facility] 05-21-2023 13:48-0400 Systolic blood pressure 116 mm[Hg] Dia Older DOG BOARDER.ART GILDER Work Phone: [facility] 05-18-2023 17:33-0400 Diastolic blood pressure 76 mm[Hg] Dr. Ken Contreras Work Phone: [facility] 05-18-2023 17:33-0400 Heart rate 98 /min Dr. Ken Contreras Work Phone: [facility] 05-18-2023 17:33-0400 Respiratory rate 14 /min Dr. Ken Contreras Work Phone: [facility] 05-18-2023 17:33-0400 SaO2% (BldA) [Mass fraction] 98 % Dr. Ken Contreras Work Phone: [facility] 05-18-2023 17:33-0400 Systolic blood pressure 141 mm[Hg] Dr. Ken Contreras Work Phone: [facility] 05-18-2023 14:17-0400 Body height 157.[address] Ken Contreras Work Phone: [facility] 05-18-2023 14:17-0400 Body mass index (BMI) [Ratio] 34.7 kg/m2 Dr. Ken Contreras Work Phone: [facility] 05-18-2023 14:17-0400 Body temperature 96.3 [degF] Dr. Ken Contreras Work Phone: [facility] 05-18-2023 14:17-0400 Body weight 86.[address] Ken Contreras Work Phone: [facility] 05-05-2023 13:44-0400 Body height 157.[address] Ken Contreras Work Phone: [facility] 05-05-2023 13:44-0400 Body mass index (BMI) [Ratio] 31.8 kg/m2 Dr. Ken Contreras Work Phone: 0(276)942-159477 [place] [address] 05-05-2023 13:44-0400 Body weight 79.[address] Ken Contreras Work Phone: 3(440)785-905277 [place] [address] 05-05-2023 13:44-0400 Diastolic blood pressure 74 mm[Hg] Dr. Ken Contreras Work Phone: 7(089)345-094377 [place] [address] 05-05-2023 13:44-0400 Heart rate 60 /min Dr. Ken Contreras Work Phone: 5(598)375-220277 [place] [address] 05-05-2023 13:44-0400 Respiratory rate 18 /min Dr. Ken Contreras Work Phone: 8(207)628-330077 [place] [address] 05-05-2023 13:44-0400 SaO2% (BldA) [Mass fraction] 95 % Dr. Ken Contreras Work Phone: 3(037)520-745377 [place] [address] 05-05-2023 13:44-0400 Systolic blood pressure 115 mm[Hg] Dr. Ken Contreras Work Phone: 9(650)182-006977 [place] [address] 02-25-2023 06:48-0400 Body mass index (BMI) [Ratio] 31.8 kg/m2 Dr. Ken Contreras Work Phone: 8(150)173-920077 [place] [address] 02-25-2023 06:48-0400 Body temperature 97.8 [degF] Dr. Ken Contreras Work Phone: 0(668)022-112877 [place] [address] 02-25-2023 06:48-0400 Body weight 78.[address] Ken Contreras Work Phone: 5(027)359-577477 [place] [address] 02-25-2023 06:48-0400 Diastolic blood pressure 67 mm[Hg] Dr. Ken Contreras Work Phone: 9(244)567-034377 [place] [address] 02-25-2023 06:48-0400 Heart rate 60 /min Dr. Ken Contreras Work Phone: 3(013)276-020877 [place] [address] 02-25-2023 06:48-0400 Respiratory rate 18 /min Dr. Ken Contreras Work Phone: 1(740)829-527377 [place] [address] 02-25-2023 06:48-0400 SaO2% (BldA) [Mass fraction] 95 % Dr. Ken Contreras Work Phone: 6(517)314-606177 [place] [address] 02-25-2023 06:48-0400 Systolic blood pressure 103 mm[Hg] Dr. Ken Contreras Work Phone: 7(637)935-533377 [place] [address] 01-09-2023 22:26-0400 Diastolic blood pressure 74 mm[Hg] Dr. Ken Contreras Work Phone: 2(598)467-973877 [place] [address] 01-09-2023 22:26-0400 Heart rate 64 /min Dr. Ken Contreras Work Phone: 6(814)240-588377 [place] [address] 01-09-2023 22:26-0400 Respiratory rate 15 /min Dr. Ken Contreras Work Phone: 4(893)038-582077 [place] [address] 01-09-2023 22:26-0400 SaO2% (BldA) [Mass fraction] 97 % Dr. Ken Contreras Work Phone: 8(764)711-485677 [place] [address] 01-09-2023 22:26-0400 Systolic blood pressure 136 mm[Hg] Dr. Ken Contreras Work Phone: 1(984)508-877177 [place] [address] 01-09-2023 18:23-0400 Body height 157.[address] Ken Contreras Work Phone: 9(353)183-375877 [place] [address] 01-09-2023 18:23-0400 Body mass index (BMI) [Ratio] 32.5 kg/m2 Dr. Ken Contreras Work Phone: 7(891)687-176277 [place] [address] 01-09-2023 18:23-0400 Body temperature 96.7 [degF] Dr. Ken Contreras Work Phone: 5(458)439-512177 [place] [address] 01-09-2023 18:23-0400 Body weight 80.[address] Ken Contreras Work Phone: [facility] 01-09-2023 17:38-0400 Body temperature 97.9 [degF] Jorge Jordan APRN.ART GILDER Work Phone: [facility] 01-09-2023 17:38-0400 Body weight 80.92 kg Jorge Jordan APRN.ART GILDER Work Phone: [facility] 01-09-2023 17:38-0400 Diastolic blood pressure 84 mm[Hg] Jorge Jordan APRN.ART GILDER Work Phone: [facility] 01-09-2023 17:38-0400 Heart rate 60 /min Jorge Jordan APRN.ART GILDER Work Phone: [facility] 01-09-2023 17:38-0400 Respiratory rate 18 /min Jorge Jordan APRN.ART GILDER Work Phone: [facility] 01-09-2023 17:38-0400 SaO2% (BldA) [Mass fraction] 98 % Jorge Jordan APRN.ART GILDER Work Phone: [facility] 01-09-2023 17:38-0400 Systolic blood pressure 126 mm[Hg] Jorge Jordan APRN.ART GILDER Work Phone: [facility] 08-19-2022 14:20-0500 Body height 158.[address] Ken Contreras Work Phone: [facility] Work Phone: 08-19-2022 14:20-0500 Body mass index (BMI) [Ratio] 32.2 kg/m2 Dr. Ken Contreras Work Phone: [facility] Work Phone: 08-19-2022 14:20-0500 Body temperature 97.3 [degF] Dr. Ken Contreras Work Phone: [facility] Work Phone: 08-19-2022 14:20-0500 Body weight 81.[address] Ken Contreras Work Phone: [facility] Work Phone: 08-19-2022 14:20-0500 Diastolic blood pressure 81 mm[Hg] Dr. Ken Contreras Work Phone: [facility] Work Phone: 08-19-2022 14:20-0500 Heart rate 63 /min Dr. Ken Contreras Work Phone: [facility] Work Phone: 08-19-2022 14:20-0500 Respiratory rate 18 /min Dr. Ken Contreras Work Phone: [facility] Work Phone: 08-19-2022 14:20-0500 SaO2% (BldA) [Mass fraction] 95 % Dr. Ken Contreras Work Phone: [facility] Work Phone: 08-19-2022 14:20-0500 Systolic blood pressure 130 mm[Hg] Dr. Ken Contreras Work Phone: [facility] Work Phone: 08-01-2022 14:21-0500 Body height 158.8 cm Ken Contreras MD Work Phone: [facility] 08-01-2022 14:21-0500 Body weight 80.29 kg Ken Contreras MD Work Phone: [facility] 08-01-2022 14:21-0500 Diastolic blood pressure 75 mm[Hg] Ken Contreras MD Work Phone: [facility] 08-01-2022 14:21-0500 Heart rate 66 /min Ken Contreras MD Work Phone: [facility] 08-01-2022 14:21-0500 Respiratory rate 12 /min Ken Contreras MD Work Phone: [facility] 08-01-2022 14:21-0500 Systolic blood pressure 115 mm[Hg] Ken Contreras MD Work Phone: [facility] 07-15-2022 16:06-0500 Diastolic blood pressure 97 mm[Hg] Geoff Carlos MD Work Phone: [facility] 07-15-2022 16:06-0500 Heart rate 62 /min Geoff Carlos MD Work Phone: [facility] 07-15-2022 16:06-0500 Systolic blood pressure 166 mm[Hg] Geoff Carlos MD Work Phone: [facility] 07-05-2022 11:04-0400 Body weight 78.93 kg Misael Cooley MD Work Phone: [facility] 07-05-2022 11:04-0400 Diastolic blood pressure 82 mm[Hg] Misael Cooley MD Work Phone: [facility] 07-05-2022 11:04-0400 Heart rate 67 /min Misael Cooley MD Work Phone: [facility] 07-05-2022 11:04-0400 Respiratory rate 16 /min Misael Cooley MD Work Phone: [facility] 07-05-2022 11:04-0400 SaO2% (BldA) [Mass fraction] 96 % Misael Cooley MD Work Phone: [facility] 07-05-2022 11:04-0400 Systolic blood pressure 130 mm[Hg] Misael Cooley MD Work Phone: [facility] 06-19-2022 12:46-0400 Body temperature 98.91 [degF] Jennifer Older DOG BOARDER.ART GILDER Work Phone: [facility] 06-19-2022 12:46-0400 Body weight 79.83 kg Jennifer Older DOG BOARDER.ART GILDER Work Phone: [facility] 06-19-2022 12:46-0400 Diastolic blood pressure 72 mm[Hg] Jennifer Older DOG BOARDER.ART GILDER Work Phone: [facility] 06-19-2022 12:46-0400 Heart rate 60 /min Jennifer Older DOG BOARDER.ART GILDER Work Phone: [facility] 06-19-2022 12:46-0400 Respiratory rate 16 /min Jennifer Older DOG BOARDER.ART GILDER Work Phone: [facility] 06-19-2022 12:46-0400 Systolic blood pressure 120 mm[Hg] Jennifer Older DOG BOARDER.ART GILDER Work Phone: [facility] 01-23-2022 13:50-0400 Body temperature 98.29 [degF] Ken Contreras MD Work Phone: [facility] 01-23-2022 13:50-0400 Body weight 79.38 kg Ken Contreras MD Work Phone: [facility] 01-23-2022 13:50-0400 Diastolic blood pressure 70 mm[Hg] Ken Contreras MD Work Phone: [facility] 01-23-2022 13:50-0400 Heart rate 60 /min Ken Contreras MD Work Phone: [facility] 01-23-2022 13:50-0400 Respiratory rate 16 /min Ken Contreras MD Work Phone: [facility] 01-23-2022 13:50-0400 SaO2% (BldA) [Mass fraction] 92 % Ken Contreras MD Work Phone: [facility] 01-23-2022 13:50-0400 Systolic blood pressure 118 mm[Hg] Ken Contreras MD Work Phone: [facility] 01-07-2022 11:06-0400 Body height 159 cm Ria Matamoros DO Work Phone: [facility] 01-07-2022 11:06-0400 Body weight 79.38 kg Ria Matamoros DO Work Phone: [facility] 01-07-2022 11:06-0400 Diastolic blood pressure 77 mm[Hg] Ria Matamoros DO Work Phone: [facility] 01-07-2022 11:06-0400 Heart rate 60 /min Ria Matamoros DO Work Phone: [facility] 01-07-2022 11:06-0400 SaO2% (BldA) [Mass fraction] 100 % Ria Matamoros DO Work Phone: [facility] 01-07-2022 11:06-0400 Systolic blood pressure 132 mm[Hg] Ria Matamoros DO Work Phone: [facility] 10-01-2021 13:38-0500 Body height 157.[address] Ken Contreras Work Phone: [facility] Work Phone: 10-01-2021 13:38-0500 Body mass index (BMI) [Ratio] 32.3 kg/m2 Dr. Ken Contreras Work Phone: [facility] Work Phone: 10-01-2021 13:38-0500 Body weight 80.[address] Ken Contreras Work Phone: [facility] Work Phone: 10-01-2021 13:38-0500 Diastolic blood pressure 80 mm[Hg] Dr. Ken Contreras Work Phone: [facility] Work Phone: 10-01-2021 13:38-0500 Heart rate 60 /min Dr. Ken Contreras Work Phone: [facility] Work Phone: 10-01-2021 13:38-0500 Respiratory rate 18 /min Dr. Ken Contreras Work Phone: [facility] Work Phone: 10-01-2021 13:38-0500 SaO2% (BldA) [Mass fraction] 95 % Dr. Ken Contreras Work Phone: [facility] Work Phone: 10-01-2021 13:38-0500 Systolic blood pressure 130 mm[Hg] Dr. Ken Contreras Work Phone: [facility] Work Phone: 07-27-2017 14:41-0500 BMI (Body Mass Index) 33.48 kg/m2 [facility] Work Phone: 07-27-2017 14:41-0500 Body Temperature 97.7 [degF] [facility] Work Phone: 07-27-2017 14:41-0500 BP Diastolic 80 mm[Hg] [facility] Work Phone: 07-27-2017 14:41-0500 BP Systolic 164 mm[Hg] [facility] Work Phone: 07-27-2017 14:41-0500 Height 160.02 cm [facility] Work Phone: 07-27-2017 14:41-0500 Pulse (Heart Rate) 62 /min [facility] Work Phone: 07-27-2017 14:41-0500 Respiratory Rate 18 /min [facility] Work Phone: 07-27-2017 14:41-0500 Weight 85.73 kg [facility] Work Phone: 07-24-2017 07:36-0500 BMI (Body Mass Index) 33.65 kg/m2 Taylor Mena PRODUCTION STAGE MANAGER [facility] Work Phone: 07-24-2017 07:36-0500 Body Temperature 97.6 [degF] Taylor Mena PRODUCTION STAGE MANAGER [facility] Work Phone: 07-24-2017 07:36-0500 BP Diastolic 84 mm[Hg] Taylor Mena PRODUCTION STAGE MANAGER [facility] Work Phone: 07-24-2017 07:36-0500 BP Systolic 141 mm[Hg] Taylor Yensho PRODUCTION STAGE MANAGER [facility] Phone: 07-24-2017 07:36-0500 Height 160.02 cm Taylor Yensho PRODUCTION STAGE MANAGER [facility] Work Phone: 07-24-2017 07:36-0500 Pulse (Heart Rate) 61 /min Taylor Yensho PRODUCTION STAGE MANAGER [facility] Work Phone: 07-24-2017 07:36-0500 Respiratory Rate 18 /min Taylor Yensho PRODUCTION STAGE MANAGER [facility] Phone: 07-24-2017 07:36-0500 Weight 86.18 kg Taylor Yensho PRODUCTION STAGE MANAGER [facility] Phone: 03-05-2017 08:46-0400 Body Temperature 97.81 [degF] Taylor Yensho PRODUCTION STAGE MANAGER [facility] Phone: 03-05-2017 08:46-0400 Height 160.02 cm Taylor Yensho PRODUCTION STAGE MANAGER [facility] Phone: 03-05-2017 08:46-0400 Weight 83.91 kg Taylor Yensho PRODUCTION STAGE MANAGER [facility] Phone: 11-27-2016 12:52-0400 Inhaled O2 2 Taylor Yensho PRODUCTION STAGE MANAGER [facility] Phone: Encounters Encounter Date Encounter Type Care Provider Facility Start: 04-11-2025 End: 04-11-2025 ambulatory KEN CONTRERAS Facility:[facility] Start: 04-07-2025 End: 04-07-2025 Patient encounter procedure Ashely Miller MD Work Phone: Pulmonary Medicine Comment on above: Bronchiectasis with acute exacerbation (HCC) (Primary Dx); Nocturnal hypoxemia; Mild intermittent asthma without complication (HCC) Start: 04-07-2025 End: 04-07-2025 ambulatory KEN CONTRERAS Facility:[facility] Start: 04-06-2025 End: 04-06-2025 Refill Dia José Miguel Hussain GRANDA.ART GILDER Work Phone: [facility] [place] Comment on above: Refill Request Start: 03-31-2025 End: 03-31-2025 Patient encounter procedure Latonya STEVE -[facility] Work Phone: Start: 03-31-2025 End: 03-31-[address] Ken Contreras MD Work Phone: -[facility] Start: 03-28-2025 End: 03-28-2025 Subsequent hospital visit by physician [facility] Work Phone: Radiology Comment on above: Acute cough [R05.1] Start: 03-28-2025 End: 03-28-2025 Patient encounter procedure Jorge Jordan APRN.ART GILDER Work Phone: [facility] Comment on above: Acute cough (Primary Dx) Start: 03-28-2025 End: 03-28-2025 ambulatory KEN CONTRERAS Facility:[facility] Start: 03-28-2025 End: 03-29-2025 Follow-up encounter Jorge Jordan APRN.ART GILDER Work Phone: [facility] Comment on above: Results Start: 03-28-2025 End: 03-28-2025 Telephone encounter Ken Contreras MD Work Phone: [facility] [place] Comment on above: Patient Update Start: 03-24-2025 End: 03-24-[address] Ken Contreras MD Work Phone: -[facility] Start: 03-24-2025 End: 03-24-[address] Zane Mcpherson MD -[facility] Work Phone: Start: 03-23-2025 End: 03-23-2025 Patient encounter procedure Dian Rodas MD Work Phone: Allergy Comment on above: [id number] adv erse effect of medication, initial encounter (Primary Dx); Allergic rhinitis due to cats; Allergic rhinitis due to dust mite; Moderate persistent asthma without complication (HCC); Toxic effect from eating shellfish, accidental or unintentional, initial encounter Start: 03-23-2025 End: 03-23-2025 ambulatory KEN CONTRERAS Facility:[facility] Start: 03-17-2025 End: 03-17-2025 Telephone encounter Ken Contreras MD Work Phone: [facility] [place] Comment on above: Constipation Start: 03-08-2025 ambulatory Ken Contreras Facili ty:[facility] Start: 03-08-2025 Non-patient / Non-visit Dr. Alice TONEY -[facility] Start: 03-08-2025 End: 03-08-[address] Ken Contreras MD Work Phone: -Cardiovascular Services Start: 03-08-2025 End: 03-08-[address] Ken Contreras MD -[facility] Services Work Phone: Start: 03-08-2025 End: 03-08-2025 ambulatory Ken Contreras Facility:[facility] Start: 03-07-2025 Non-patient / Non-visit Dr. Christi cook MD -[facility] Work Phone: Start: 03-04-2025 End: 03-07-2025 Refill Dia Lopez APRN.CNP Work Phone: [facility] [place] Comment on above: Refill Request Start: 03-02-2025 End: 03-02-2025 Office outpatient visit 25 minutes Ken Contreras MD Work Phone: [facility] [place] Comment on above: Depression, recurren t (Primary Dx); Hip pain, left; MARTINES (dyspnea on exertion); Contusion of left side of back, subsequent encounter Start: 03-02-2025 End: 03-02-2025 ambulatory KEN CONTRERAS Facility:[facility] Start: 02-15-2025 End: 02-15-2025 Emergency department patient visit Dr. Ken Contreras MD Work Phone: -Emergency Department Work Phone: Start: 02-15-2025 End: 02-15-2025 ambulatory Ken Contreras MD Work Phone: [facility] [place] Comment on above: Head Injury Start: 02-06-2025 End: 02-06-2025 Telephone encounter Ken Contreras MD Work Phone: [facility] [place] Comment on above: [facility] Scheduling dept requesting records Start: 02-03-2025 End: 02-03-2025 ambulatory [facility]m [facility] Work Phone: [facility] Comment on above: Spirometry Start: 02-03-2025 End: 02-03-2025 Patient encounter procedure [facility] Work Phone: [facility] Start: 02-03-2025 End: 02-03-2025 Telephone encounter Ken Contreras MD Work Phone: [facility] [place] Comment on above: Request for records Patient Update Start: 02-02-2025 End: 02-02-2025 Office outpatient visit 25 minutes Ken Contreras MD Work Phone: [facility] [place] Comment on above: Depression, recurren t (Primary Dx); Hip pain, left; Dyspnea on exertion Start: 02-02-2025 End: 02-02-2025 ambulatory KEN CONTRERAS Facility:[facility] Start: 01-26-2025 End: 01-26-2025 ambulatory KEN CONTRERAS Facility:[facility] Start: 01-25-2025 End: 01-25-2025 ambulatory CAMI MARS Facility:[facility] Start: 01-11-2025 End: 01-11-2025 Patient encounter procedure Ailyn Bonner DOG BOARDER.ART GILDER Work Phone: [facility]INE [facility] Comment on above: Personal history of traumatic brain injury (Primary Dx); Sleep apnea, unspecified type Start: 01-11-2025 End: 01-11-2025 ambulatory AILYN BONNER Facility:[facility] Start: 01-06-2025 End: 01-06-2025 ambulatory Najma John RN Supervisor [employer] Comment on above: Bi-Weekly Outreach ( Recurring) for Chronic Disease Management, Bi-Weekly Outreach (Recurring) for Chronic Disease Management Start: 01-05-2025 End: 01-05-2025 ambulatory KEN CONTRERAS Facility:[facility] Start: 01-05-2025 End: 01-05-2025 Patient [...] Start: 12-23-2024 End: 12-23-2024 ambulatory Zane Mcpherson Facility:[facility] Start: 12-23-2024 End: 12-23-[address] Zane Mcpherson MD -[facility] Work Phone: Start: 12-22-2024 End: 12-22-2024 ambulatory Najma John RN Supervisor [employer] Management Comment on above: Bi-Weekly Outreach ( Recurring) for Chronic Disease Management Start: 12-19-2024 End: 12-19-2024 Telephone encounter Ken Contreras MD Work Phone: [facility] [place] Comment on above: Fax Request Start: 12-16-2024 End: 12-16-2024 ambulatory KEN CONTRERAS Facility:[facility] Start: 12-16-2024 End: 12-16-2024 Patient encounter procedure Ruben Ferrara PA-C Work Phone: Orthopaedics Comment on above: Chronic bilateral lo w back pain without sciatica (Primary Dx); Hip pain, left; Pain of erector spinae muscle Start: 12-15-2024 End: 12-16-2024 Follow-up encounter Cami Mars MD Work Phone: Geriatrics Start: 12-14-2024 End: 12-14-2024 ambulatory CAMI MARS Facility:[facility] Start: 12-14-2024 End: 12-14-2024 ambulatory [facility] Facility:[facility] Start: 12-14-2024 End: 12-14-2024 Office [...] 12-07-2024 End: 12-07-2024 ambulatory Najma John RN Supervisor [employer] Comment on above: Bi-Weekly Outreach ( Recurring) for Chronic Disease Management Start: 12-06-2024 End: 12-07-2024 Refill Dia Lopez APRN.CNP Work Phone: [facility] [place] Comment on above: Refill Request Start: 12-01-2024 End: 12-02-2024 Telephone encounter Ken Contreras MD Work Phone: [address] [place] [address] Comment on above: Patient Question Start: 11-29-2024 End: 11-29-2024 Telephone encounter Ken Contreras MD Work Phone: [facility] [place] Comment on above: Consult (Orthopedic ) Start: 11-24-2024 End: 11-24-2024 ambulatory KEN CONTRERAS Facility:[facility] Start: 11-24-2024 End: 11-24-2024 Subsequent hospital visit by physician Marii [facility] [place] Work Phone: Radiology Comment on above: Hip pain, left [M25. 552] Start: 11-24-2024 End: 11-24-2024 ambulatory KEN CONTRERAS Facility:[facility] Start: 11-24-2024 End: 11-24-2024 Office outpatient visit 25 minutes Ken Contreras MD Work Phone: [facility] [place] Comment on above: Hip pain, left (Prim corinna Dx); Physical debility; Oxygen desaturation; Bronchiectasis without complication (HCC) Start: 11-23-2024 End: 11-23-2024 ambulatory Najma John RN Supervisor [employer] Management Comment on above: Started Bi-Weekly Ou roz (Recurring) for Chronic Disease Management Start: 11-11-2024 End: 11-11-[address] Ken Contreras MD Work Phone: [facility] Work Phone: Start: 11-11-2024 End: 11-11-2024 Patient encounter procedure Latonya Vargas PA -Laboratory Work Phone: Start: 11-11-2024 End: 11-11-2024 ambulatory Ken Contreras Facility:[facility] Start: 11-09-2024 End: 12-12-2024 ambulatory Najma John RN Supervisor [employer] Comment on above: Initial enrollment o francis for Chronic Disease Management Start: 10-31-2024 End: 10-31-2024 Orders Only Ashely Miller MD Work Phone: Pulmonary Medicine Comment on above: Bronchiectasis witho ut complication (HCC) (Primary Dx) Overnight test Start: 10-30-2024 End: 11-02-2024 Refill Ken Contreras MD Work Phone: [facility] [place] Comment on above: Refill Request Start: 10-20-2024 End: 10-20-2024 ambulatory DIA LOPEZ Facility:[facility] Start: 10-20-2024 End: 10-20-2024 Patient encounter procedure Ashely Miller MD Work Phone: Pulmonary Medicine Comment on above: Nocturnal hypoxemia (Primary Dx); Bronchiectasis without complication (HCC); Pulmonary hypertension (HCC); Mild intermittent asthma without complication Start: 10-12-2024 End: 10-12-[address] Jann Mello MD -[facility] Work Phone: Start: 10-11-2024 End: 10-12-2024 ambulatory Jann Mello Facility:[facility] Start: 10-11-2024 End: 10-11-2024 Patient encounter procedure Dia Lopez ART GILDER Work Phone: [facility] [place] Comment on above: Nocturnal hypoxia (P rimary Dx); Asthmatic bronchitis , chronic (HCC); Depression, recurrent (HCC); Stage 3 chronic kidney disease, unspecified whether stage 3a or 3b CKD (HCC); Bronchiectasis without complication (HCC); Essential hypertension Start: 09-28-2024 End: 10-05-2024 Telephone encounter Ken Contreras MD Work Phone: [facility] [place] Comment on above: Patient Update Start: 09-23-2024 End: 09-23-2024 ambulatory Zane Mcpherson Facility:[facility] Start: 09-23-2024 End: 09-23-[address] Zane Mcpherson MD -[facility] Work Phone: Start: 09-05-2024 End: 09-05-2024 Emergency department patient visit Dr. Patrice Brady DO -Emergency Department Work Phone: Start: 09-04-2024 End: 09-05-2024 Refill Ken Contreras MD Work Phone: [facility] [place] Comment on above: Refill Request Start: 08-26-[address] Aryan Contreras MD -[facility] Work Phone: Start: 08-26-2024 ambulatory Ken Contreras [facility] Campus ty:[facility] Start: 08-11-2024 End: 08-12-2024 Telephone encounter Ken Contreras MD Work Phone: [facility] [place] Comment on above: Question Start: 08-08-2024 End: 08-08-2024 Emergency department patient visit Dr. Shad Hunter MD -Emergency Department Work Phone: Start: 08-08-2024 End: 08-09-2024 Telephone encounter Ken Contreras MD Work Phone: [facility] [place] Comment on above: Fall Start: 07-08-2024 End: 07-08-2024 Patient encounter procedure Jyotsna Donohue DOG BOARDER.ART GILDER Work Phone: Neurology Comment on above: Excessive daytime sl eepiness (Primary Dx) Start: 07-08-2024 End: 07-08-2024 ambulatory JYOTSNA DONOHUE Facility:[facility] Start: 07-06-2024 End: 07-06-2024 ambulatory AILYN BONNER Facility:[facility] Start: 07-06-2024 End: 07-06-2024 Patient encounter procedure Ailyn Bonner DOG BOARDER.ART GILDER Work Phone: PHYSICAL MEDICINE & REHAB Comment on above: Fatigue, unspecified type (Primary Dx); Personal history of traumatic brain injury; Impaired functional mobility, balance, gait, and endurance Start: 07-01-2024 End: 07-01-2024 ambulatory [facility] Facility:[facility] Start: 07-01-2024 End: 07-01-2024 [facility] Facility:[facility] Start: 06-24-2024 End: 07-11-2024 Telephone encounter Kaya Cartwright MD Work Phone: Neurology Comment on above: Results Start: 06-24-2024 End: 06-24-2024 ambulatory [facility] Facility[facility] Start: 06-21-2024 End: 06-21-2024 ambulatory Kaya Cartwright Facility:[facility] Start: 06-06-2024 End: 06-06-2024 Telephone encounter Kaya Cartwright MD Work Phone: Sleep Comment on above: faxed orders to [facility]- polysomnogram Start: 06-05-2024 End: 06-06-2024 Refill Dia Lopez DOG BOARDER.ART GILDER Work Phone: Internal Medicine [place] Comment on above: Refill Request Start: 06-01-2024 End: 06-01-2024 Telephone encounter Kaya Cartwright MD Work Phone: Neurology Comment on above: Patient Update Start: 05-27-2024 End: 05-27-2024 Subsequent hospital visit by physician Marii [facility] [place] Work Phone: Radiology Comment on above: Oxygen desaturation [R09.02] Start: 05-27-2024 End: 05-27-2024 ambulatory KEN CONTRERAS Facility:[facility] Start: 05-27-2024 End: 05-27-2024 Office outpatient visit 25 minutes Ken Contreras MD Work Phone: [facility] [place] Comment on above: Oxygen desaturation (Primary Dx); Encounter for immunization; Asthmatic bronchitis , chronic (HCC); Bronchiectasis without complication (HCC); Nocturnal hypoxemia; Dyspnea, unspecified type Start: 05-26-2024 End: 05-26-2024 ambulatory Jackie Lainez PT [facility] Comment on above: 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) Start: 05-26-2024 End: 05-26-2024 ambulatory DIA LOPEZ Facility:[facility] Start: 05-25-2024 End: 05-25-2024 Telephone encounter Kaya Cartwright MD Work Phone: [address] [place] [address] Comment on above: Orders Start: 05-20-2024 End: 05-20-2024 ambulatory Kaela Brasher WIND TURBINE MECHANIC Work Phone: [facility] Comment on above: 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) Start: 05-16-2024 End: 05-16-2024 Telephone encounter Kaya Cartwright MD Work Phone: Neurology Comment on above: Results Start: 05-16-2024 End: 05-16-2024 ambulatory DIA LOPEZ Facility:[facility] Start: 05-16-2024 End: 05-16-2024 Patient encounter procedure Rhoda Alcazar MD Work Phone: Otolaryngology Comment on above: Sore throat (Primary Dx); History of oral lesions Start: 05-13-2024 End: 05-13-2024 Telephone encounter Dia Lopez DOG BOARDER.ART GILDER Work Phone: [facility] [place] Comment on above: Referral Request Start: 05-13-2024 End: 05-13-2024 ambulatory DIA LOPEZ Facility:[facility] Start: 05-13-2024 End: 05-13-2024 Patient encounter procedure Dia M Hussain DOG BOARDER.ART GILDER Work Phone: [facility] [place] Comment on above: Nocturnal hypoxia (P rimary Dx); Chest discomfort; Bronchiectasis without complication (HCC) Start: 05-12-2024 End: 05-16-2024 Telephone encounter Ken Contreras MD Work Phone: [facility] [place] Comment on above: Appointment Start: 05-12-2024 End: 05-12-2024 ambulatory Kaela Brasher WIND TURBINE MECHANIC Work Phone: [facility] Comment on above: 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) Start: 05-11-2024 End: 05-13-2024 ambulatory Ken Contreras MD Work Phone: [facility] [place] Comment on above: Response to your mes radha of 05/11/24 Start: 05-05-2024 End: 05-05-2024 ambulatory Jackie Lainez PT [facility] Comment on above: 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 Start: 04-21-2024 End: 04-21-2024 Patient encounter procedure Michelle Vazquez DOG BOARDER.ART GILDER Work Phone: [facility] Comment on above: SAH (subarachnoid he morrhage) (HCC) (Primary Dx) Start: 04-21-2024 End: 04-21-2024 Telemedicine consultation with patient Michelle Vazquez APRN.ART GILDER Work Phone: [facility] Start: 04-18-2024 End: 04-18-2024 Patient encounter procedure Kaya Cartwright MD Work Phone: Neurology Comment on above: Hypersomnia (Primary Dx); Delayed sleep phase syndrome; Insomnia, unspecified type; History of depression; History of anxiety; Snoring; Nocturia; Class 1 obesity with body mass index (BMI) of 31.0 to 31.9 in adult, unspecified obesity type, unspecified whether serious comorbidity present Start: 04-18-2024 End: 04-18-2024 ambulatory KEN CONTRERAS Facility:[facility] Start: 04-02-2024 Refill Dia calderon DOG BOARDER.ART GILDER Work Phone: [facility] Medicine [place] Comment on above: Refill Request Start: 03-30-2024 End: 03-30-2024 Patient encounter procedure Dia Lopez APRN.ART GILDER Work Phone: [facility] [place] Comment on above: Essential hypertensi on (Primary Dx); Fall from slip, trip, or stumble, initial encounter; Balance problem; Asthmatic bronchitis , chronic (HCC); Acquired hypothyroidism; Anxiety Start: 03-01-2024 Refill Dia calderon DOG BOARDER.ART GILDER Work Phone: [facility] [place] Comment on above: Refill Request Start: 02-12-2024 Telephone encounter Ken murillo MD Work Phone: [facility] [place] Comment on above: Results Start: 01-27-2024 End: 01-27-2024 ambulatory AILYN BONNER Facility:[facility] Start: 01-27-2024 End: 01-27-2024 ambulatory Jose Diaz CCC-PERIPHERAL VASCULAR TECH Work Phone: [facility] Out[facility] Start: 01-27-2024 End: 01-27-2024 Patient encounter procedure Jose Salesmary lou CCC-PERIPHERAL VASCULAR TECH Work Phone: [facility] Comment on above: Personal history of traumatic brain injury (Primary Dx) Start: 01-21-2024 End: 01-21-2024 Patient encounter procedure Michelle Vazquez DOG BOARDER.ART GILDER Work Phone: [facility] Comment on above: SAH (subarachnoid he morrhage) (HCC) (Primary Dx) Start: 01-21-2024 End: 01-21-[address] [facility] Facility:[facility] Start: 01-06-2024 End: 01-06-2024 Patient encounter procedure Ailyn Bonner DOG BOARDER.ART GILDER Work Phone: PHYSICAL MEDICINE & REHAB Comment on above: Personal history of traumatic brain injury (Primary Dx); Sleep apnea, unspecified type; Fatigue, unspecified type; Aphagia; Impaired functional mobility, balance, gait, and endurance Start: 12-05-2023 Refill Dia calderon DOG BOARDER.ART GILDER Work Phone: [facility] [place] Comment on above: Refill Request Start: 11-09-2023 End: 11-09-2023 Patient encounter procedure Tremaine Landon MD Work Phone: Neurology Comment on above: Traumatic brain inju ry, without loss of consciousness, subsequent encounter (Primary Dx); 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 Start: 11-04-2023 Refill Dia calderon DOG BOARDER.ART GILDER Work Phone: [facility] [place] Comment on above: Refill Request Start: 11-03-2023 Refill Ken nolen MD Work Phone: [facility] [place] Comment on above: Refill Request Start: 10-29-2023 Telephone encounter Ken murillo MD Work Phone: [facility] [place] Comment on above: Patient Question Start: 10-22-2023 End: 10-22-2023 Patient encounter procedure Michelle Vazquez DOG BOARDER.ART GILDER Work Phone: [facility] Comment on above: SAH (subarachnoid he morrhage) (HCC) (Primary Dx) Start: 10-22-2023 End: 10-22-2023 ambulatory MICHELLE VAZQUEZ Facility:[facility] Start: 10-19-2023 End: 10-19-2023 Subsequent hospital visit by physician [facility] (I-Stat) Work Phone: Cat Scan Comment on above: SAH (subarachnoid he morrhage) (HCC) [I60.9] Start: 10-14-2023 End: 10-14-2023 Patient encounter procedure Ken Contreras MD Work Phone: [facility] [place] Comment on above: Subarachnoid bleed ( HCC) [...] patient visit Dr. Ken Contreras Work Phone: [facility]-Emergency Department Work Phone: Start: 09-30-2023 End: 09-30-2023 Patient encounter procedure Dia Lopez DOG BOARDER.ART GILDER Work Phone: [facility] [place] Comment on above: Medicare annual well ness visit, subsequent (Primary Dx); Depression, recurrent (HCC); Bronchiectasis without complication (HCC); Stage 3 chronic kidney disease, unspecified whether stage 3a or 3b CKD (HCC) Start: 08-07-2023 End: 08-07-[address] Ken Contreras Work Phone: [facility] Work Phone: Start: 08-04-2023 End: 08-04-2023 Subsequent hospital visit by physician Us [facility] 1 Work Phone: Radiology Start: 07-08-2023 ambulatory Dia Thayer KALEE GraceART GILDER Work Phone: Internal Medicine [place] Comment on above: mammogram results Start: 07-08-2023 E-mail encounter fro m caregiver Dia Thayer APRN.ART GILDER Work Phone: [facility] [place] Start: 07-07-2023 End: 07-07-2023 Subsequent hospital visit by physician Screen Mammo [facility] M[facility] Comment on above: Screening mammogram for breast cancer [Z12.31] Start: 06-23-2023 End: 06-23-[address] Ken Contreras Work Phone: [facility] Work Phone: Start: 05-27-2023 End: 05-27-2023 Emergency department patient visit Dr. [facility]ras [facility] Work [facility]: Start: 05-21-2023 End: 05-21-2023 Patient encounter procedure Dia Thayer ART GILDER Work Phone: Internal Medicine [place] Comment on above: Fall on same level f rom slipping, tripping or stumbling, subsequent encounter (Primary Dx); Abrasion, multiple sites; Injury of head, subsequent encounter; Injury of right knee, subsequent encounter; Need for vaccine for DT (diphtheria-tetanus); Encounter for immunization; Screening mammogram for breast cancer Start: 05-18-2023 End: 05-18-2023 Emergency department patient visit Dr. Ken Contreras [facility] Work [facility]: Start: 05-05-2023 End: 05-05-[address] Ken Contreras Work Phone: [facility] Work Phone: Start: 05-05-2023 End: 05-05-[address] Ken Contreras Work Phone: [facility] Work Phone: Start: 04-28-2023 Refill Ken nolen MD Work Phone: [facility] [place] Comment on above: Refill Request Start: 03-10-2023 Refill Dia GraceART GILDER Work Phone: Internal Medicine [place] Comment on above: Refill Request Start: 02-25-2023 End: 02-25-[address] Ken Contreras Work Phone[facility] Work Phone: Start: 02-16-2023 Refill Ken nolen MD Work Phone: [facility] [place] Comment on above: Refill Request Start: 02-07-2023 Refill Ken nolen MD Work Phone: [facility] [place] Comment on above: Refill Request Start: 01-09-2023 End: 01-09-2023 Emergency department patient visit Dr. Ken Contreras Work Phone: [facility]-Emergency Department Start: 01-09-2023 End: 01-09-2023 Patient encounter procedure Jorge Jordan APRN.ART GILDER Work Phone: [facility] Comment on above: Acute constipation ( Primary Dx) Start: 12-30-2022 Refill Ken nolen MD Work Phone: [facility] [place] Start: 12-24-2022 MC Patient Msg [facility] Provider [facility] [place] Comment on above: Refill request Start: 12-10-2022 Refill Ken nolen MD Work Phone: Internal [facility] Comment on above: Refill Request Start: 12-08-2022 Refill Dia Older DOG BOARDER .ART GILDER Work Phone: Family [facility] Comment on above: Refill Request Start: 12-07-2022 Refill Dia Older DOG BOARDER .ART GILDER Work Phone: [facility] [place] Comment on above: Refill Request Start: 11-16-2022 Refill Dia Older DOG BOARDER .ART GILDER Work Phone: [facility] Comment on above: Refill Request Start: 11-14-2022 End: 11-14-[address] Ken Contreras Work Phone: [facility] Start: 10-30-2022 Refill Dia Older DOG BOARDER .ART GILDER Work Phone: [facility] Comment on above: Refill Request Handicap Placard González ewal Request Start: 09-15-2022 Refill Ken nolen MD Work Phone: [facility] Comment on above: Refill Request; Refi ll Request Start: 08-28-2022 End: 08-28-[address] Ken Contreras Work Phone: [facility] Work Phone: Start: 08-28-2022 End: 08-28-[address] Ken Contreras Work Phone: [facility] Start: 08-20-2022 End: 08-20-[address] Ken Contreras Work Phone: [facility] Work Phone: Start: 08-20-2022 End: 08-20-[address] Ken Contreras Work Phone: [facility] Start: 08-19-2022 End: 08-19-[address] [facility]re[facility] Start: 08-08-2022 End: 08-08-[address] Ken Contreras Work Phone: [facility] Start: 08-01-2022 End: 08-01-2022 Patient encounter procedure Ken Contreras MD Work Phone: Internal [facility] Comment on above: Medicare annual well ness visit, subsequent (Primary Dx); Dysfunction of left eustachian tube; Depressive disorder w/ seasonal affective disorder; Acquired hypothyroidism; Anxiety; DDD (degenerative disc disease), lumbar; Mixed stress and urge urinary incontinence; Essential hypertension; Recurrent UTI Start: 07-18-2022 Refill Ken nolen MD Work Phone: [facility] Comment on above: Refill Request Start: 07-15-2022 End: 07-15-2022 Patient encounter procedure Geoff Carlos MD Work Phone: Ophthalmology Comment on above: 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, mild stage (Primary Dx); Optic cupping of both eyes; Nonexudative age-related macular degeneration, bilateral, intermediate dry stage; Essential hypertension Start: 07-05-2022 End: 07-05-2022 Patient encounter procedure Misael Cooley MD Work Phone: [facility] Comment on above: Recurrent UTI Start: 07-03-2022 Telephone encounter Ken murillo MD Work Phone: Internal [facility] Comment on above: Insurance Authorizat ion Start: 06-30-2022 Telephone encounter Jennifer Thayer APRN.ART GILDER Work Phone: Internal [facility] Comment on above: reoccurant UTI Start: 06-23-2022 Telephone encounter Jennifer Thayer APRN.ART GILDER Work Phone: Family [facility] Comment on above: Results Start: 06-19-2022 End: 06-19-2022 Patient encounter procedure Jennifer Thayer APRN.CNP Work Phone: [facility] [place] Comment on above: Urinary tract infect ion without hematuria, site unspecified (Primary Dx); Dysuria Start: 06-18-2022 Refill Geoff leija MD Work Phone: Ophthalmology Comment on above: Refill Request Start: 05-31-2022 Refill Dia Older DOG BOARDER .ART GILDER Work Phone: [facility] [place] Comment on above: Refill Request Start: 05-28-2022 Telephone encounter Ken murillo MD Work Phone: [facility] [place] Comment on above: Medication Problem; Patient Update Start: 05-08-2022 Telephone encounter Ken murillo MD Work Phone: [facility] [place] Comment on above: Patient Question Start: 05-07-2022 Refill Dia Older DOG BOARDER .ART GILDER Work Phone: [facility] [place] Comment on above: Refill Request Start: 04-14-2022 Refill Geoff leija MD Work Phone: Ophthalmology Comment on above: Refill Request Start: 04-11-2022 ambulatory Ken nolen MD Work Phone: [facility] [place] Comment on above: sinus pressure; ear ache [...] 01-23-2022 Subsequent hospital visit by physician Marii [facility] [place] Work Phone: Radiology Comment on above: Pleurisy [R09.1] Start: 01-23-2022 End: 01-23-2022 Patient encounter procedure Ken Contreras MD Work Phone: [facility] [place] Comment on above: Pleurisy (Primary Dx ); Vitamin D deficiency; Bronchiectasis without complication (HCC); Essential hypertension; Acquired hypothyroidism; Elevated alkaline phosphatase measurement; Need for COVID-19 vaccine; Personal history of squamous cell carcinoma of skin Start: 01-17-2022 Non-patient / Non-visit Dr. Ziggy Contreras Work Phone: [facility] Start: 01-17-2022 End: 01-17-[address] Ken Contreras Work Phone: [facility]-Pulmonary Services/Neurology Start: 01-10-2022 Telephone encounter Dia Thayer APRN.ART GILDER Work Phone: [facility] [place] Comment on above: Opened In Error Start: 01-07-2022 End: 01-07-2022 Patient encounter procedure Ria Matamoros DO Work Phone: Vascular Surgery Comment on above: Venous (peripheral) insufficiency (Primary Dx) Start: 12-18-2021 End: 12-18-[address] [facility] Start: 11-29-2021 Refill Dia GraceART GILDER Work Phone: [facility] [place] Comment on above: Refill Request Start: 10-18-2021 End: 10-18-[address] Ken Contreras Work Phone: [facility] Start: 10-01-2021 End: 10-01-[address] Ken Contreras Work Phone: [facility] Start: 06-22-2012 End: 06-24-2017 Patient encounter procedure Ailyn Bonner APRN.ART GILDER Work Phone: [facility] Procedures Date Procedure Procedure Detail Performing Clinician Start: 03-28-2025 Radiologic exam ches t 2 views Jorge Jordan APRN.ART GILDER Work Phone: Start: 03-08-2025 Cardiovascular stres s [...] MD Work Phone: Start: 05-27-2024 Radiologic exam ches t 2 views Ken Contreras MD Work Phone: Start: 05-26-2024 Echocardiography DIA HE RSHBERGER Start: 10-19-2023 Ct head/brain w/o co ntrast material Dulce Vallejo PA-C Work Phone: Start: 10-02-2023 CT cervical spine wi thout contrast Dr. Ken Contreras Work Phone: Start: 10-02-2023 CT of head without contrast Dr. Ken Contreras Work Phone: Start: 08-04-2023 Digital breast tomos ynthesis unilateral Dia Older DOG BOARDER.ART GILDER Work Phone: Start: 07-07-2023 Screening mammograph y bi 2-view breast inc cad Dia Older DOG BOARDER.ART GILDER Work Phone: Start: 05-27-2023 Radiologic examinati on of knee Dr. Ken Contreras Work Phone: Start: 05-27-2023 Plain X-ray of tibia and fibula Dr. Ken Contreras Work Phone: Start: 05-21-2023 INFLUENZA VACCINE, P RSV FREE, AGE 65+ YR, HIGH DOSE, QUADRIVALENT (FLUZONE HIGH-DOSE) Dia Older DOG BOARDER.ART GILDER Work Phone: Start: 05-18-2023 Radiologic examinati on [...] Phone: Start: 08-20-[address] Ziggy Contreras Work Phone: Start: 07-15-2022 Fundus photography w/interpretation & report Geoff Carlos MD Work Phone: Start: 06-19-2022 Urnls dip stick/tabl et rgnt auto w/o microscopy Jennifer Older DOG BOARDER.ART GILDER Work Phone: Start: 03-12-2022 End: 03-12-2022 Visual field xm uni/bi w/interp extended exam Geoff Carlos MD Work Phone: Start: 01-23-2022 Radiologic exam ches t 2 views Ken Contreras MD Work Phone: Start: 01-23-2022 PFIZER-BIONTECH COVI D-19 VACCINE, AGE 12+ YR (SEVILLA TOP) Ken Contreras MD Work Phone: Start: 04-15-2017 End: 07-23-2017 DMB Irene Arenas STRETCHER OPERATOR Work Phone: Start: 04-15-2017 End: 07-23-2017 Follow Up Appt 3 months Irene rangel ART GILDER Work Phone: Start: 03-05-2017 End: 03-05-2017 Thyrotropin [Units/volume] in Serum or Plasma Jaswant Miller DO Work Phone: Start: 11-27-2016 End: 12-16-2016 DMB Irene Arenas STRETCHER OPERATOR Work Phone: Start: 11-27-2016 End: 12-16-2016 Follow Up Appt 2 months Irene rangel ART GILDER Work Phone: Start: 11-27-2016 End: 12-16-2016 Pulmonary Function Test - complete Irene Garcia ART GILDER Work Phone: Start: 11-27-2016 End: 12-16-2016 Pulmonary stress test/simple Irene Garcia ART GILDER Work Phone: Plan of Treatment Date Care Activity Detail Author Start: 05-21-2033 Urine microalbumin profile DTaP,Tdap,Td Vaccine (3 - Td or Tdap) [facility] Start: 01-27-2028 Diabetes Screening Diabetes Screening [facility] Start: 05-27-2027 Diabetes Screening Diabetes Screening [facility] Start: 10-05-2026 Diabetes Screening Diabetes Screening [facility] Start: 07-02-2026 Diabetes Screening Diabetes Screening [facility] Start: 02-20-2026 DIABETES SCREEN DIABETES SCREEN [facility] Start: 02-20-2026 Diabetes Screening Diabetes Screening [facility] Start: 01-26-2026 DIABETES SCREEN DIABETES SCREEN [facility] Start: 01-05-2026 Medicare Annual Wellness Visit Medicare Annual Wellness Visit [facility] Start: 10-11-2025 RSV Vaccine (1 - 1-dose 75+ series) RSV Vaccine (1 - 1-dose 75+ series) [facility] Comment on above: Postponed from 02/22/2012 (Declined at t his time) Start: 07-25-2025 DIABETES SCREEN DIABETES SCREEN [facility] Start: 05-27-2025 Covid-19 Vaccine ( season) Covid-19 Vaccine () [facility] Comment on above: Postponed from 05/08/2024 (Declined at t his time) Start: 05-27-2025 Covid-19 Vaccine () Covid-19 Vaccine () [facility] Comment on above: Postponed from 05/08/2024 (Declined at t his time) Start: 05-08-2025 Influenza vaccination Influenza Vaccine (#1) [facility] Start: 04-11-2025 End: 04-11-2025 Patient encounter procedure 04/11/2025 2:00 PM EDT Office Visit [facility] [place] [address] [place] [address] Dia Lopez, DOG BOARDER.ART GILDER [address] [place] [id number] medicare 6 months [facility] [place] Comment on above: medicare 6 months Start: 04-07-2025 End: 04-07-2025 Patient encounter procedure 04/07/2025 10:30 AM EDT Office Visit Pulmonary Medicine [address] [place] [id number] Ashely Miller MD [address] [place] [address] SOB f/u Pulmonary Medicine Comment on above: SOB f/u Start: 04-04-2025 End: 04-04-2025 Patient encounter procedure 04/04/2025 2:45 PM EDT Office Visit Pulmonary Medicine [address] [place] [address] Ashely Miller MD [address] [place] [address] 4m f/up Pulmonary Medicine Comment on above: 4m f/up Start: 03-23-2025 End: 03-23-2025 Patient encounter procedure 03/23/2025 1:15 PM EDT Office Visit Allergy [address] [address] Dian Rodas MD [address] [place], [place] [phone] I would like to know what reactions I might get. Allergy Comment on above: I would like to know what reactions I mi ght get. Start: 03-02-2025 End: 03-02-2025 Patient encounter procedure 03/02/2025 1:40 PM EDT Office Visit Internal Medicine [place] [address] [place] [address] Ken Contreras MD [address] [place] [address] 4 week follow-up [facility] [place] Comment on above: 4 week follow-up Start: 02-14-2025 End: 02-14-2025 Patient encounter procedure 02/14/2025 1:15 PM EDT Office Visit Allergy [address] [address] Dian Rodas MD [address] [place], [place] [phone] I would like to know what reactions I might get. Allergy Comment on above: I would like to know what reactions I mi ght get. Start: 02-03-2025 End: 02-03-2025 ambulatory PULM LAB [facility] Comment on above: MARTINES (dyspnea on exertion) [R06.09] Start: 02-02-2025 End: 02-02-2025 Patient encounter procedure 02/02/2025 3:20 PM EDT Office Visit Internal Medicine [place] [address] [place] [address] Ken Contreras MD [address] [facility] [place] [address] 4 week follow up [facility] Medicine [place] Comment on above: 4 week follow up Start: 01-26-2025 End: 04-27-2025 25-hydroxyvitamin D3 [Mass/volume] in Serum or Plasma VITAMIN D 25 HYDROXY Lab Routine Vitamin D deficiency Expected: 01/26/2025, Expires: 04/27/2025 [facility] Comment on above: Expected: 01/26/2025, Expires: Start: 01-26-2025 End: 04-27-2025 Basic metabolic 2000 panel - Serum or Plasma BASIC METABOLIC PANEL Lab Routine Stage 3 chronic kidney disease, unspecified whether stage 3a or 3b CKD (HCC) Expected: 01/26/2025, Expires: 04/27/2025 [facility] Work Phone: Comment on above: Expected: 01/26/2025, Expires: Start: 01-26-2025 End: 04-27-2025 Thyrotropin [Units/volume] in Serum or Plasma THYROID STIMULATING HORMONE Lab Routine Acquired hypothyroidism Expected: 01/26/2025, Expires: 04/27/2025 [facility] Comment on above: Expected: 01/26/2025, Expires: Start: 01-26-2025 End: 01-26-2025 ambulatory 01/26/2025 1:30 PM EDT Results Only [facility] [address] [place] [address] [facility] Start: 01-25-2025 End: 01-25-2025 Patient encounter procedure 01/25/2025 4:00 PM EDT Office Visit Geriatrics [address] [facility] [place] [address] Cami Mars MD [address] [facility] [place] [address] 6 wk follow up Geriatrics Comment on above: 6 wk follow up Start: 01-16-2025 DIABETES SCREEN DIABETES SCREEN [facility] Start: 01-11-2025 End: 01-11-2025 Patient encounter procedure 01/11/2025 3:00 PM EDT Office Visit PHYSICAL MEDICINE & REHAB [address] [address] Ailyn Bonner, KALEE.ART GILDER [address] [place] [address] Return in about 6 months (around 01/04/2025). [facility] Comment on above: Return in about 6 months (around 01/05/20). Start: 01-05-2025 End: 01-05-2025 Patient encounter procedure Internal Med amanda [facility] Comment on above: 6 week f/u-lower back pain/hip pain wellness exam Start: 12-16-2024 End: 12-16-2024 Patient encounter procedure 12/16/2024 11:00 AM EDT Office Visit Orthopaedics [address] [address] Ruben Ferrara PA-C [address] [address] Left hip pain Orthopaedics Comment on above: Left hip pain Start: 12-14-2024 End: 03-15-2025 25-hydroxyvitamin D3 [Mass/volume] in Serum or Plasma [facility] Comment on above: Expected: 12/14/2024, Expires: Start: 12-14-2024 End: 03-15-2025 Ferritin [Mass/volume] in Serum or Plasma [facility] Comment on above: Expected: 12/14/2024, Expires: 5 Start: 12-14-2024 End: 03-15-2025 Iron and Iron binding capacity panel - Serum or Plasma [facility] Work Phone: Comment on above: Expected: 12/14/2024, Expires: Start: 12-14-2024 End: 12-14-2024 Patient encounter procedure 12/14/2024 1:30 PM EDT Office Visit Geriatrics [address] [facility] [place] [address] Cami Mars MD [address] [facility] [place] [address] Fatigue, unspecified type [R53.83] Geriatrics Comment on above: Fatigue, unspecified type [R53.83] Start: 10-20-2024 End: 10-20-2024 Patient encounter procedure 10/20/2024 1:30 PM EST Office Visit Pulmonary Medicine [address] [facility] [place] [address] Ashely Miller MD [address] [facility] [place] [place] [address] Bronchiectasis without complication (HCC) [J47.9]; Nocturnal hypoxia [G47.34] Pulmonary Medicine Comment on above: Bronchiectasis without complication (HCC ) [J47.9]; Nocturnal hypoxia [G47.34] Start: 10-11-2024 End: 10-11-2024 Patient encounter procedure 10/11/2024 2:40 PM EST Office Visit Internal Medicine [place] [address] [facility] [address] Dia Lopez, DOG BOARDER.ART GILDER [address] [facility] [place] [address] 6 mo follow up [facility] Medicine [place] Comment on above: 6 mo follow up Start: 10-04-2024 End: 10-04-2024 Patient encounter procedure 10/04/2024 2:40 PM EST Office Visit Internal Medicine [place] [address] [facility] [address] Dia Lopez, DOG BOARDER.ART GILDER [address] [facility] [place] [address] 6 mo follow up [facility] Medicine [place] Comment on above: 6 mo follow up Start: 09-30-2024 End: 09-30-2024 Patient encounter procedure 09/30/2024 2:20 PM EST Office Visit Internal Medicine [place] [address] [place] [address] Dia Lopez, DOG BOARDER.ART GILDER [address] [facility] [place] [address] 6 month follow up [facility] Medicine [place] Comment on above: 6 month follow up Start: 09-30-2024 Covid-19 Vaccine () Covid-19 Vaccine () [facility] Comment on above: Postponed from 05/08/2023 (Declined at t his time) Start: 09-07-2024 Advance Directive Discussion Advance Directive Discussion [facility] Start: 09-05-2024 [facility] Start: 09-05-2024 [facility] Start: 08-08-2024 Incentive spirometry [facility] Start: 08-08-2024 End: 08-08-2024 [facility] Start: 07-18-2024 DIABETES SCREEN DIABETES SCREEN [facility] Start: 07-08-2024 End: 07-08-2024 Patient encounter procedure Neurology Comment on above: follow up after sleep test follow up after slee p test, need results from [facility] Start: 07-06-2024 End: 07-06-2024 Patient encounter procedure 07/06/2024 3:00 PM EDT Office Visit PHYSICAL MEDICINE & REHAB [address] [address] Ailyn Bonner, DOG BOARDER.ART GILDER [address] [place] [address] 6 month follow up [facility] Comment on above: 6 month follow up Start: 06-23-2024 End: 06-23-2024 ambulatory 06/23/2024 1:15 PM EDT OT/PT/Speech Visit [facility] [address] [place] [address] Migel, Jackie, PT I60.9 (ICD-10-CM) - Subarachnoid hemorrhage (HCC) [facility] Comment on above: I60.9 (ICD-10-CM) - Subarachnoid hemorrh age (HCC) Start: 06-16-2024 End: 06-16-2024 ambulatory 06/16/2024 1:15 PM EDT OT/PT/Speech Visit [facility] [address] [place] [address] Jackie Lainez, PT I60.9 (ICD-10-CM) - Subarachnoid hemorrhage (HCC) [facility] Comment on above: I60.9 (ICD-10-CM) - Subarachnoid hemorrh age (HCC) Start: 06-09-2024 End: 06-09-2024 ambulatory 06/09/2024 11:45 AM EDT OT/PT/Speech Visit [facility] [address] [place] [address] Kaela Brasher, WIND TURBINE MECHANIC [address] [place] [address] I60.9 (ICD-10-CM) - Subarachnoid hemorrhage (HCC) [facility] Comment on above: I60.9 (ICD-10-CM) - Subarachnoid hemorrh age (HCC) Start: 06-02-2024 End: 06-02-2024 ambulatory 06/02/2024 1:15 PM EDT OT/PT/Speech Visit [facility] [address] [place] [address] Jackie Lainez, PT I60.9 (ICD-10-CM) - Subarachnoid hemorrhage (HCC) [facility] Comment on above: I60.9 (ICD-10-CM) - Subarachnoid hemorrh age (HCC) Start: 05-27-2024 End: 08-26-2024 Basic metabolic 2000 panel - Serum or Plasma [facility] Comment on above: Expected: 05/27/2024, Expires: Start: 05-27-2024 End: 08-26-2024 Natriuretic peptide.B prohormone N-Terminal [Mass/volume] in Serum or Plasma [facility] Comment on above: Expected: 05/27/2024, Expires: Start: 05-27-2024 End: 05-27-2024 Patient encounter procedure 05/27/2024 8:00 AM EDT Office Visit Internal Medicine [place] [address] [place] [address] Ken Contreras MD [address] [facility] [place] [address] follow up per PT [facility] [place] Comment on above: follow up per PT Start: 05-26-2024 End: 05-26-2024 ambulatory 05/26/2024 3:45 PM EDT OT/PT/Speech Visit [facility] [address] [place] [address] Jackie Lainez, PT I60.9 (ICD-10-CM) - Subarachnoid hemorrhage (HCC) [facility] Comment on above: I60.9 (ICD-10-CM) - Subarachnoid hemorrh age (HCC) Start: 05-26-2024 End: 05-26-2024 Patient encounter procedure 05/26/2024 1:50 PM EDT Office Visit Cardiology [address] [place] [address] Chest discomfort [R07.89] Cardiology Comment on above: Chest discomfort [R07.89] Start: 05-19-2024 End: 05-19-2024 ambulatory 05/19/2024 12:30 PM EDT OT/PT/Speech Visit [facility] [address] [place] [address] Jackie Lainez, PT I60.9 (ICD-10-CM) - Subarachnoid hemorrhage (HCC) [facility] Comment on above: I60.9 (ICD-10-CM) - Subarachnoid hemorrh age (HCC) Start: 05-16-2024 End: 05-16-2024 Patient encounter procedure 05/16/2024 11:30 AM EDT Office Visit Otolaryngology [address] [place] [address] Rhoda Alcazar MD [address] [place] [address] Odynophagia [R13.10] Otolaryngology Comment on above: Odynophagia [R13.10] Start: 05-13-2024 End: 05-13-2024 Patient encounter procedure 05/13/2024 9:40 AM EDT Office Visit Internal Medicine [place] [address] [place] [address] Dia Lopez, DOG BOARDER.ART GILDER [address] [place] [address] Evaluate for hypoxia per HSAT [facility] [place] Comment on above: Evaluate for hypoxia per HSAT Start: 05-12-2024 End: 05-12-2024 ambulatory 05/12/2024 11:45 AM EDT OT/PT/Speech Visit [facility] [address] [facility] [place] [address] Kaela Brasher, WIND TURBINE MECHANIC [address] [facility] [address] I60.9 (ICD-10-CM) - Subarachnoid hemorrhage (HCC) [facility] Comment on above: I60.9 (ICD-10-CM) - Subarachnoid hemorrh age (HCC) Start: 05-08-2024 Covid-19 Vaccine ( season) Covid-19 Vaccine ( season) [facility] Start: 05-08-2024 Influenza vaccination Influenza Vaccine (#1) [facility] Start: 05-05-2024 End: 05-05-2024 ambulatory 05/05/2024 12:30 PM EDT OT/PT/Speech Visit [facility] [address] [place] [address] Jackie Lainez PT I60.9 (ICD-10-CM) - [facility]arachnoid hemorrhage (HCC) 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]; Insomnia, unspecified type [G47.00]; Snoring [R06.83] Neurology Comment on above: Hypersomnia [G47.10]; Delayed sleep phas e syndrome [G47.21]; Insomnia, unspecified type [G47.00]; Snoring [R06.83] Start: 04-26-2024 End: 04-26-2024 ambulatory 04/26/2024 3:00 PM EDT OT/PT/Speech Visit [facility] [address] [place] [address] Jackie Lainez PT Subarachnoid hemorrhage (HCC) [I60.9] [facility] Comment on above: Subarachnoid hemorrhage (HCC) [I60.9] Start: 04-21-2024 End: 04-21-2024 Follow-up encounter 04/21/2024 1:00 PM EDT [facility] [address] [place] [phone] Michelle Vazquez APRN.ART GILDER [address] [place] [address] 3 month follow up. Please call [phone] [facility] Comment on above: 3 month follow up. Please call [phone] Start: 04-18-2024 End: 04-18-2024 Patient encounter procedure 04/18/2024 8:00 AM EDT Office Visit Neurology [address] [place] [address] Kaya Cartwright Jr., MD [address] [facility] [address] [place] [phone] Sleep apnea, unspecified type [G47.30] Neurology Comment on above: Sleep apnea, unspecified type [G47.30] Start: 03-30-2024 End: 03-30-2024 Patient encounter procedure 03/30/2024 3:00 PM EDT Office Visit Internal Medicine [place] [address] [place] [address] Dia Lopez, DOG BOARDER.ART GILDER [address] [place] [address] 6 month follow up [facility] [place] Comment on above: 6 month follow up Start: 02-26-2024 End: 02-26-2024 Patient encounter procedure 02/26/2024 1:00 PM EDT OT/PT/Speech Visit [facility] [address] [place] [phone] Jose Diaz CCC-PERIPHERAL VASCULAR TECH [address] [place] [address] Personal history of traumatic brain injury [facility] Comment on above: Personal history of traumatic brain inju ry Start: 01-27-2024 End: 01-27-2024 Patient encounter procedure 01/27/2024 3:30 PM EDT OT/PT/Speech Visit [facility] [address] [place] [phone] Jose Diaz CCC-PERIPHERAL VASCULAR TECH [address] [place] [address] Personal history of traumatic brain injury [Z87.820] [facility] Comment on above: Personal history of traumatic brain inju ry [Z87.820] Start: 01-21-2024 End: 01-21-2024 Patient encounter procedure 01/21/2024 2:00 PM EDT Office Visit [facility] [address] [facility] [place] [phone] Michelle Vazquez, DOG BOARDER.ART GILDER [address] [facility] [place] [address] 3 mos fu [facility] [place] Comment on above: 3 mos fu Start: 10-02-2023 [facility] Start: 08-01-2023 COVID-19 VACCINE (4 - Booster for Leon series) COVID-19 VACCINE (4 - Booster for Leon series) [facility] Comment on above: Postponed from 03/20/2022 (Declined at t his time) Start: 06-19-2023 Urine microalbumin profile DTAP,TDAP,TD (2 - Td or Tdap) [facility] Comment on above: Postponed from 06/22/2022 (Declined at t his time) Start: 05-08-2023 Covid-19 Vaccine ( season) Covid-19 Vaccine ( season) [facility] Start: 05-08-2023 Influenza vaccination INFLUENZA (#1) [facility] Start: 03-06-2023 Influenza vaccination INFLUENZA (#1) [facility] Comment on above: Postponed from 05/08/2022 (Declined at t his time) Start: 01-29-2023 End: 03-31-2023 Basic metabolic 2000 panel - Serum or Plasma BASIC METABOLIC PNL Lab Routine Essential hypertension Expected: 01/29/2023, Expires: 03/31/2023 [facility] Work Phone: Comment on above: Expected: 01/29/2023, Expires: 3 Start: 01-29-2023 End: 03-31-2023 Thyrotropin [Units/volume] in Serum or Plasma TSH BLD Lab Routine Acquired hypothyroidism Expected: 01/29/2023, Expires: 03/31/2023 [facility] Work Phone: Comment on above: Expected: 01/29/2023, Expires: 3 Start: 09-07-2022 ADVANCE DIRECTIVE DISCUSSION ADVANCE DIRECTIVE DISCUSSION [facility] Start: 07-26-2022 End: 09-25-2022 ALK PHOS ISOENZYM BL ALK PHOS ISOENZYM BL Lab Routine Elevated alkaline phosphatase measurement Expected: 07/26/2022, Expires: 09/25/2022 [facility] Work Phone: Comment on above: Expected: 07/26/2022, Expires: 3 Start: 07-26-2022 End: 09-25-2022 Basic metabolic 2000 panel - Serum or Plasma BASIC METABOLIC PNL Lab Routine Essential hypertension Expected: 07/26/2022, Expires: 09/25/2022 [facility] Work Phone: Comment on above: Expected: 07/26/2022, Expires: 3 Start: 07-26-2022 End: 09-25-2022 CBC panel - Blood by Automated count CBC Lab Routine Essential hypertension Expected: 07/26/2022, Expires: 09/25/2022 [facility] Work Phone: Comment on above: Expected: 07/26/2022, Expires: 3 Start: 07-26-2022 End: 09-25-2022 LIPID PANEL BASIC LIPID PANEL BASIC Lab Routine Essential hypertension Expected: 07/26/2022, Expires: 09/25/2022 [facility] Work Phone: Comment on above: Expected: 07/26/2022, Expires: 3 Start: 07-26-2022 End: 09-25-2022 VITAMIN D 25 HYDROXY VITAMIN D 25 HYDROXY Lab Routine Vitamin D deficiency Expected: 07/26/2022, Expires: 09/25/2022 [facility] Work Phone: Comment on above: Expected: 07/26/2022, Expires: 3 Start: 07-07-2022 End: 09-06-2022 Bacteria identified in Urine by Culture URINE CULTURE Microbiology Routine Recurrent UTI (urinary tract infection) Expected: 07/07/2022 (Approximate), Expires: 09/06/2022 [facility] Work Phone: Comment on above: Expected: 07/07/2022 (Approximate), Expi res: 09/06/2022 Start: 07-07-2022 End: 09-06-2022 Urinalysis complete panel - Urine URINALYSIS, WITH MICROSCOPIC Lab Routine Recurrent UTI (urinary tract infection) Expected: 07/07/2022 (Approximate), Expires: 09/06/2022 [facility] Work Phone: Comment on above: Expected: 07/07/2022 (Approximate), Expi res: 09/06/2022 Start: 06-22-2022 Urine microalbumin profile DTAP,TDAP,TD (2 - Td or Tdap) [facility] Start: 05-08-2022 Influenza vaccination INFLUENZA (#1) [facility] Start: 03-20-2022 COVID-19 VACCINE (4 - Booster for Leon series) COVID-19 VACCINE (4 - Booster for Leon series) [facility] Start: 12-31-2021 SHINGRIX VACCINE (3 of 3) SHINGRIX VACCINE (3 of 3) [facility] Start: 09-07-2021 ADVANCE DIRECTIVE DISCUSSION ADVANCE DIRECTIVE DISCUSSION [facility] Start: 01-20-2018 End: 01-20-2018 Appointment Appointment [facility] Phone: Start: 07-27-2017 End: 07-27-2017 Appointment Appointment [facility] Phone: Start: 07-27-2017 End: 04-15-2017 Ct thorax w/o contrast material CT Chest without contrast [facility] Phone: Start: 07-24-2017 End: 07-24-2017 [facility] Phone: Start: 07-24-2017 End: 07-24-2017 Follow Up Appt 6 months Follow Up Appt 6 months [facility] Phone: Start: 07-24-2017 End: 07-24-2017 Appointment Appointment [facility] Phone: Start: 05-05-2017 End: 05-05-2017 Esophagogastroduodenoscopy transoral diagnostic EGD; diagnostic [facility] Phone: Start: 04-15-2017 End: 07-23-2017 DMB DMB [facility] Work Phone: Start: 04-15-2017 End: 07-23-2017 Follow Up Appt 3 months Follow Up Appt 3 months [facility] Work Phone: Start: 03-05-2017 End: 03-05-2017 [facility] Phone: Start: 03-05-2017 End: 03-05-2017 Follow Up Appt 6 weeks Follow Up Appt 6 weeks [facility] Work Phone: Start: 03-05-2017 End: 03-05-2017 Thyroid stimulating hormone (TSH) *TSH [facility] Work Phone: Start: 02-23-2017 End: 02-23-2017 Follow Up as scheduled Follow Up as scheduled [facility] Work Phone: Start: 01-08-2017 End: 01-11-2017 Ct thorax w/o contrast material CT Chest without contrast [facility] Work Phone: Start: 01-08-2017 End: 01-08-2017 DMB DMB [facility] Phone: Start: 01-08-2017 End: 01-08-2017 Follow Up Appt 2 months Follow Up Appt 2 months [facility] Work Phone: Start: 11-27-2016 End: 12-16-2016 DMB DMB [facility] Work Phone: Start: 11-27-2016 End: 12-16-2016 Follow Up Appt 2 months Follow Up Appt 2 months [facility] Work Phone: Start: 11-27-2016 End: 12-16-2016 Pulmonary Function Test - complete Pulmonary Function Test - complete [facility] Phone: Start: 11-27-2016 End: 12-16-2016 Pulmonary stress test/simple Pulmonary stress testing; simple (eg, 6-minute walk) [facility] Work Phone: Start: 02-22-2012 RSV Vaccine (1 - 1-dose 75+ series) RSV Vaccine (1 - 1-dose 75+ series) [facility] Start: 11-12-2011 SHINGRIX VACCINE (2 of 3) SHINGRIX VACCINE (2 of 3) [facility] Start: 1997 RSV Vaccine (1 - 1-dose 60+ series) RSV Vaccine (1 - 1-dose 60+ series) [facility] Bacteria identified in Urine by Culture URINE CULTURE Microbiology Routine Dysuria 06/19/2022 1:19 PM EDT [facility] Work Phone: ECG COMPLETE ECG COMPLETE ECG Routine Chest discomfort Ordered: 05/13/2024 [facility] Work Phone: Comment on above: Ordered: 05/13/2024 End: 05-13-2025 Echocardiography ECHO Cardiology Routine Chest discomfort Nocturnal hypoxia 1 Occurrences starting 05/13/2024 until 05/13/2025 [facility] Comment on above: 1 Occurrences starting 05/13/2024 until 05/13/2025 HOME SLEEP APNEA TEST (HSAT) PANCHO E SLEEP APNEA TEST (HSAT) Procedures Routine Hypersomnia Delayed sleep phase syndrome Insomnia, unspecified type Snoring 1 Occurrences starting 04/18/2024 [facility] Work Phone: Comment on above: 1 Occurrences starting 04/18/2024 LUNG VOLUMES LUNG VOLUMES PFT Routine MARTINES (dyspnea on exertion) 02/03/2025 2:22 PM EDT [facility] Work Phone: End: 08-06-2024 SOPHIE DIAGNOSTIC LEFT SOPHIE DIAGNOSTIC LEFT Radiology Routine Abnormal screening mammogram 1 Occurrences starting 07/08/2023 until 08/06/2024 [facility] Work Phone: Comment on above: 1 Occurrences starting 07/08/2023 until 08/06/2024 End: 06-19-2024 SOPHIE SCREENING SOPHIE SCREENING Radiology Routine Screening mammogram for breast cancer 1 Occurrences starting 05/21/2023 until 06/19/2024 [facility] Work Phone: Comment on above: 1 Occurrences starting 05/21/2023 until 06/19/2024 OXIMETRY - NOCTURNAL OXIMETRY - NOCTURNAL Procedures Routine Pulmonary hypertension (HCC) Ordered: 10/20/2024 [facility] Work Phone: Comment on above: Ordered: 10/20/2024 OXIMETRY - NOCTURNAL OXIMETRY - NOCTURNAL Procedures Routine Chronic obstructive pulmonary disease, unspecified COPD type (HCC) Ordered: 12/13/2024 [facility] Work Phone: Comment on above: Ordered: 12/13/2024 Patient Education [facility] Work Phone: Patient referral [facility] Work Phone: End: 05-16-2025 Polysomnogram POLYSOMNOGRAM (PSG) Procedures Routine Nocturnal hypoxia Sleep apnea-like behavior Class 1 obesity with body mass index (BMI) of 31.0 to 31.9 in adult, unspecified obesity type, unspecified whether serious comorbidity present Hypersomnia Insomnia, unspecified type Snoring 1 Occurrences starting 05/16/2024 until 05/16/2025 [facility] Work Phone: Comment on above: 1 Occurrences starting 05/16/2024 until 05/16/2025 SPIROMETRY - BASELIN E AND POST DILATOR SPIROMETRY - BASELINE AND POST DILATOR PFT Routine MARTINES (dyspnea on exertion) 02/03/2025 2:22 PM EDT [facility] Work Phone: End: 08-06-2024 US BREAST LTD LEFT US BREAST LTD LEFT Radiology Routine Abnormal screening mammogram 1 Occurrences starting 07/08/2023 until 08/06/2024 [facility] Work Phone: Comment on above: 1 Occurrences starting 07/08/2023 until 08/06/2024 End: 06-26-2025 XR Chest PA and Lateral XR CHEST 2V FRONTAL/LAT Radiology Routine Oxygen desaturation 1 Occurrences starting 05/27/2024 until 06/26/2025 [facility] Work Phone: Comment on above: 1 Occurrences starting 05/27/2024 until 06/26/2025 XR Chest PA and Lateral XR CHEST 2V FRONTAL/LAT Radiology Routine Oxygen desaturation 05/27/2024 9:18 AM EDT [facility] XR Pelvis and Hip - left AP and Lateral frog XR HIP GENERAL 3V PELV/AP/LAT LEFT Radiology Routine Hip pain, left 11/24/2024 7:04 PM EDT [facility] Work Phone: End: 12-24-2025 XR Pelvis and Hip - left AP and Lateral frog XR HIP GENERAL 3V PELV/AP/LAT LEFT Radiology Routine Hip pain, left 1 Occurrences starting 11/24/2024 until 12/24/2025 [facility] Work Phone: Comment on above: 1 Occurrences starting 11/24/2024 until 12/24/2025 [facility] Immunizations Immunization Date Immunization Notes Care Provider Fa [facility] 11-02-2024 respiratory syncytia l virus (RSV) vaccine, adjuvanted (AREXVY) Dian Rodas MD Work Phone: [facility] 05-27-2024 influenza, high dose seasonal, preservative-free Ken Contreras MD Work Phone: [facility] 05-27-2024 influenza virus vaccine, unspecified formulation Dia Hussain DOG BOARDER.ART GILDER Work Phone: [facility] 05-21-2023 TD(adult) unspecifie d formulation Dia Older DOG BOARDER.ART GILDER Work Phone: [facility] Work Phone: 05-21-2023 influenza (HD-IIV4) vaccine, age 65+ yr, high dose, quadrivalent, PF (FLUZONE HIGH-DOSE) Dia Older DOG BOARDER.ART GILDER Work Phone: [facility] 05-21-2023 tetanus and diphther ia toxoids, adsorbed, preservative free, for adult use (5 Lf of tetanus toxoid and 2 Lf of diphtheria toxoid) Dia Older DOG BOARDER.ART GILDER Work Phone: [facility] 05-21-2023 influenza virus vaccine, unspecified formulation Dia Hussain DOG BOARDER.ART GILDER Work Phone: [facility] 08-19-2022 influenza, injectabl e, quadrivalent, preservative free Dr. Ken Contreras Work Phone: [facility] 08-19-2022 influenza, seasonal, injectable Dr. Ken Contreras Work Phone: [facility] 04-14-2022 zoster vaccine recombinant Ken Contreras MD Work Phone: [facility] 01-23-2022 COVID-19 vaccine, ag e 12+ yr ([employer] [facility]) Ken Contreras MD Work Phone: [facility] Work Phone: 11-05-2021 zoster vaccine recombinant Ken Contreras MD Work Phone: [facility] Work Phone: 05-30-2021 influenza, injectabl e, quadrivalent, preservative free Dr. Ken Contreras Work Phone: [facility] 05-30-2021 influenza, seasonal, injectable Dr. Ken Contreras Work Phone: [facility] Work Phone: 05-30-2021 influenza, seasonal, injectable, preservative free Dia Older DOG BOARDER.ART GILDER Work Phone: [facility] Work Phone: 11-15-2020 COVID-19 vaccine (LEON) Dia Older DOG BOARDER.ART GILDER Work Phone: [facility] Work Phone: 07-04-2020 influenza, high-dose , quadrivalent vaccine (FLUZONE HIGH DOSE QUADRIVALENT) Dia Older DOG BOARDER.ART GILDER Work Phone: [facility] Work Phone: 07-07-2019 influenza, high dose seasonal, preservative-free Dia Older DOG BOARDER.ART GILDER Work Phone: [facility] Work Phone: 06-30-2018 influenza, high dose seasonal, preservative-free Dia Older DOG BOARDER.ART GILDER Work Phone: [facility] Work Phone: 06-24-2017 influenza, high dose seasonal, preservative-free Dia Older DOG BOARDER.ART GILDER Work Phone: [facility] 06-24-2017 pneumococcal polysaccharide vaccine, 23 valent Dia Older DOG BOARDER.ART GILDER Work Phone: [facility] 05-20-2016 influenza, high dose seasonal, preservative-free Dia Older DOG BOARDER.ART GILDER Work Phone: [facility] 05-12-[address] Ken Contreras Work Phone: [facility] 05-12-2016 influenza, seasonal, injectable, preservative free Dia Older DOG BOARDER.ART GILDER Work Phone: [facility] Work Phone: 09-24-2015 influenza, high dose seasonal, preservative-free Dia Older DOG BOARDER.ART GILDER Work Phone: [facility] 09-12-2014 pneumococcal conjuga te vaccine, 13 valent Dia Older DOG BOARDER.ART GILDER Work Phone: [facility] 08-07-2014 influenza, seasonal, injectable Dia Older DOG BOARDER.ART GILDER Work Phone: [facility] Work Phone: 06-27-2013 influenza virus vaccine, unspecified formulation Dia Older DOG BOARDER.ART GILDER Work Phone: [facility] 06-22-2012 influenza virus vaccine, unspecified formulation Dia Older DOG BOARDER.ART GILDER Work Phone: [facility] 06-22-2012 tetanus toxoid, redu natalee diphtheria toxoid, and acellular pertussis vaccine, adsorbed Dia Older DOG BOARDER.ART GILDER Work Phone: [facility] 09-17-2011 zoster vaccine, live Dia Old er DOG BOARDER.ART GILDER Work Phone: [facility] 06-19-2011 influenza virus vaccine, unspecified formulation Dia Older DOG BOARDER.ART GILDER Work Phone: [facility] 06-18-2010 influenza virus vaccine, unspecified formulation Dia Older DOG BOARDER.ART GILDER Work Phone: [facility] 06-07-2009 influenza virus vaccine, unspecified formulation Dia Older DOG BOARDER.ART GILDER Work Phone: [facility] Work Phone: 07-18-2008 influenza virus vaccine, unspecified formulation Dia Older DOG BOARDER.ART GILDER Work Phone: [facility] Work Phone: 07-12-2007 influenza virus vaccine, unspecified formulation Dia Older DOG BOARDER.ART GILDER Work Phone: [facility] Work Phone: 07-06-2006 influenza virus vaccine, unspecified formulation Dia Older DOG BOARDER.ART GILDER Work Phone: [facility] 10-06-2005 pneumococcal polysaccharide vaccine, 23 valent Dia Older DOG BOARDER.ART GILDER Work Phone: [facility] 08-13-2005 influenza virus vaccine, unspecified formulation Dia Older DOG BOARDER.ART GILDER Work Phone: [facility] 01-03-2004 hepatitis B vaccine, adult dosage Dia Older DOG BOARDER.ART GILDER Work Phone: [facility] Work Phone: 06-14-2003 hepatitis B vaccine, adult dosage Dia Older DOG BOARDER.ART GILDER Work Phone: [facility] Work Phone: 05-15-2003 hepatitis B vaccine, adult dosage Dia Older DOG BOARDER.ART GILDER Work Phone: [facility] Work Phone: Payers Date Payer Category Payer Self-pay [id number] 2016 [facility] ANTHEM ME DICARE SUPPLEMENT [id number] 2016 Unknown ANTHEM ANTHEM ME DICARE SUPPLEMENT [id number] 2016-Present [phone] [id number] [place], [place] [address] Indemnity [id number] 2016 Unknown ANTHEM ANTHEM ME DICARE SUPPLEMENT [id number] 2016-Present [id number] [place], [place] [id number] Indemnity [id number] 2016 Unknown [id number] 2002 Medicare MEDICARE MEDICAR E A AND B [id number] 2002-Present [phone] [place] [address] Medicare [id number] 2002 Medicare [id number] 2002 Medicare [id number] Unknown [id number] 2.462 Unknown [id number] [id number]. 2.462 Unknown [id number] [id number]. 2.462 Unknown [id number] [id number]. 2.462 Unknown [id number] [id number]. 2.462 Unknown [id number] [id number]. 2.462 Unknown [id number] [id number]. 2.462 Unknown [id number] [id number]. 2.462 Unknown [id number] [id number]. 2.462 Unknown [id number] [id number]. 2.462 Unknown [id number] [id number]. 2.462 Unknown [id number] 2.840.1.306910.3.579. 2.462 Unknown [id number] 2.840.1.363993.3.579. 2.462 Unknown [id number] 2.840.1.518873.3.579. 2.462 Unknown [id number] [id number]. 2.462 Unknown [id number]. 2.462 Social History Date Type Detail Facility Start: 12-15-2011 End: 05-13-2024 Tobacco smoking status NHIS Ex-smoker [facility] Start: [birth year]-14-1955 End: 05-14-1965 History of tobacco use Current smoker [facility] Start: 05-14-1955 End: 05-14-1965 History of tobacco use Cigarette Smoker [facility] Start: 10-08-2021 End: 04-07-2025 Alcohol intake Current drinker of alcohol (finding) [facility] Start: 07-23-2020 End: 08-01-2022 History SDOH Alcohol Frequency 3 [facility] Start: 07-23-2020 End: 08-01-2022 History SDOH Alcohol Std Drinks 1 [facility] Start: 05-01-2021 History SDOH Alcohol Comment 1/2 glass of wine twice per month [facility] Start: 01-03-2020 End: 08-01-2022 History SDOH Social Connections Phone 5 [facility] Start: 07-03-2020 End: 08-01-2022 History SDOH Social Connections Get Together 2 [facility] Start: 07-03-2020 End: 08-01-2022 History SDOH Social Connections Jew 98 [facility] Start: 01-03-2020 History SDOH Physica l Activity DPW 0 [facility] Start: 01-03-2020 Education 21 [facility] Start: 1935 Sex Assigned At Female [facility] Start: 10-01-2021 End: 10-02-2023 Tobacco smoking status NHIS Unknown if ever smoked [facility] Start: 11-18-2016 None [facility] Start: 11-18-2016 With Family [facility] Start: 11-18-2016 Non-smoker [facility] Start: 01-13-2022 End: 07-15-2022 Exposure to SARS-CoV-2 (event) Not sure [facility] Work Phone: Start: 12-15-2011 End: 01-30-2023 Cigarettes smoked current (pack per day) - Reported 0.5 [facility] Start: 12-15-2011 End: 05-13-2024 Tobacco use and exposure Smokeless tobacco non-user [facility] Start: 08-01-2022 End: 01-30-2023 Social connection and isolation panel [facility] How often do you get together with friends or relatives? Patient refused [facility] Are you now , , , , never or living with a partner? [facility] How often to you hav e a drink containing alcohol? 2-4 times a month [facility] How many standard drinks containing alcohol do you have on a typical day? 1 or 2 [facility] How often do you hav e 6 or more drinks on 1 occasion? Never [facility] Do you feel stress - tense, restless, nervous, or anxious, or unable to sleep at night because your mind is troubled all the time - these days [OSQ] Only a little [facility] The food that (I/we) bought just didn't last, and (I/we) didn't have money to get more. Never true [facility] In the past 12 month s, was there a time when you were not able to pay the mortgage or rent on time? No [facility] Start: 01-03-2020 Gender identity Identifies as female gender (finding) [facility] Start: 01-03-2020 Sexual orientation Heterosexual (ray murray) [facility] Are you now , , , , never or living with a partner? Living with partner [facility] How often to you hav e a drink containing alcohol? Monthly or less [facility] History of tobacco use Passive smoker [facility] Do you feel stress - tense, restless, nervous, or anxious, or unable to sleep at night because your mind is troubled all the time - these days [OSQ] Not at all [facility] Start: 11-22-2024 Sex Female (finding) Therese valentin [facility] Medical Equipment Procedure Code Equipment Code Equipment Origin al Text Equipment Identifier Dates ([id number]) Dual-chamber implantable pacemaker, rate-responsive ()[id number] FDA Start: 05-29-2021 ([id number]) Endocardial paci ng lead ()[id number] FDA Start: 05-29-2021 ([id number]) Endocardial paci ng lead ()[id number] FDA Start: 05-29-2021 Functional Status Date Assessment Result Facility 04-13-2015 Are you deaf, or do you have serious difficulty hearing No 04/13/2015 2:32 PM CYT Shayla Nguyen MA No [facility] 04-13-2015 Are you blind, or do you have serious difficulty seeing, even when wearing glasses No 04/13/2015 2:32 PM EDT Shayla Nguyen MA No [facility] 04-13-2015 Do you have serious difficulty walking or climbing stairs No 04/13/2015 2:32 PM EDT Shayla Nguyen MA No [facility] 04-13-2015 Do you have difficul ty dressing or bathing No 04/13/2015 2:32 PM EDT Shayla Nguyen MA No [facility] 04-13-2015 Because of a physica l, mental, or emotional condition, do you have difficulty doing errands alone such as visiting a physician's office or shopping No 04/13/2015 2:32 PM EDT Shayla Nguyen MA No [facility] Mental Status Date Assessment Result Facility 04-13-2015 Because of a physica l, mental, or emotional condition, do you have serious difficulty concentrating, remembering, or making decisions No 04/13/2015 2:32 PM EDT Shayla Nguyen MA No [facility] Clinical Notes 04-19-2021 to 04-11-2025 Ashely Miller MD - 04/07/2025 10:29 AM EDTTelephone Encounter - Kailey Caraballo LPN - 04/06/2025 2:55 PM EDTTelephone Encounter - Kailey Caraballo LPN - 04/06/2025 2:55 PM EDT Note Date & Type Note Facility 04-11-2025 Note [facility] 04-07-2025 Note [facility] 04-07-2025 History of Presen t illness Narrative Images from the original note were not included. . [facility] Note Patient name: Geoffrey Nassar PCP: Ken Contreras MD CC: Cough HPI: Geoffrey Nassar 89 year old female former remote smoker with PMH significant for asthma, depression, hypothyroidism, CAD, GERD, history of bilateral pulmonary emboli 2016, history of subarachnoid hemorrhage, PPM and bronchiectasis. At last office visit in October, she was reestablishing care after previously following with [facility] pulmonary but last seen in 2011. [...] Punctate keratitis, bilateral 10/08/2021 SAH (subarachnoid hemorrhage) ([facility]) 10/03/2023 Subarachnoid hemorrhage ([facility]) 10/03/2023 Tubular adenoma [...] Ellipta -Refilled prescription Ashely Miller MD [facility] documented in this encounter [facility] 04-06-2025 Telephone encounter Note Duplicate request. Kailey Caraballo LPN [facility] 04-06-2025 Miscellaneous Notes Duplicate request. Kailey [...] Take 1 tablet by mouth once daily. [facility] April 06, 2025 2:41 PM documented in this encounter [facility] 04-06-2025 Telephone encounter Note Prescription Refill [...] Neelam Noel April 06, 2025 2:41 PM [facility] 04-06-2025 Telephone encounter Note Patient has [...] Please advise. Thank you. Kailey Caraballo LPN. [facility] 04-06-2025 Miscellaneous Notes Patient has been [...] Kailey Caraballo LPN. documented in this encounter [facility] 04-06-2025 Telephone encounter Note Patient has [...] Please advise. Thank you. Kailey Caraballo LPN. [facility] 04-06-2025 Miscellaneous Notes Patient has been [...] Kailey Caraballo LPN. documented in this encounter [facility] 03-31-2025 Progress note [facility] 03-31-2025 Progress note Note Date/Time March 31, 2025 1:49pm [facility] [address] [place] [address]. [address] [place] [address] OFFICE VISIT Date of Service: 03/31/25 MR#: [id number] Acct: [id number] Name: GEOFFREY NASSAR Rep #: [id number] : 1935 Provider: POWER Messer Age/Sex: 89/F Location[facility] Status: Signed HPI HPI History of [...] this she was evaluated by EP at [facility]. She underwent a PPM placement in 05/2021. [...] 2.5 mg/3 mL 2.5 mg inhalation Q4H [facility]/Or 01/10/21 0 03/31/25 History [...] you fallen in the past year?: Yes PFSH Medical History Presence of cardiac pacemaker [...] affect Supplemental Info Supplemental Information Echocardiogram 05/26/24 ([facility]) Conclusion The left ventricle is normal [...] regurgitation abd RVSP of 35mmHg. Echocardiogram 10/03/23 ([facility]) Impression The left ventricle is normal in [...] Cosigner Signature: Date (if applicable) CC: ~ [facility] Work Phone: [phone] Telephone encounter Note* Telephone Encounter - Kassidy Peña RN - 03/29/2025 11:14 AM EDT Patient calls and notified of results and providers instructions. Patient verbalizes understanding and will follow up with PCP if needed. Kassidy Peña RN [facility]07-23-2025 Miscellaneous Notes* Telephone Encounter - Kassidy [...] up with primary care. [facility] Telephone encounter Note * Telephone Encounter - Barbara Pereira LPN - 03/29/2025 8:57 AM EDT Left message for patient to return call for results.Barbara Pereira LPN [facility]07-22-2025 Telephone encounter Note* Telephone Encounter - Jorge Jordan APRN.CNP - 03/28/2025 6:13 PM EDT Please call patient let her know that her chest x-ray was negative. Patient should do supportive therapies. If symptoms get worse not better please follow- up with primary care. [facility] Work Phone: 1(942) 342-704707-22-2025 [facility] History of Present illness Narrative* [...] care if symptoms worsen. and Recording using [employer] software for draft documentation of the visit was discussed with the patient/authorized billing representative; all questions welcomed and answered. Patient/authorized billing representative agreed to proceed MDM Procedures documented [facility] History of Present illness Narrative* Zahra [...] PATIENT PRESENTS WITH AN IMPLANTABLE OR ATTACHED AQUATIC LIFE LABORER: No RADIOLOGY DEPARTMENT: General X-ray: Exam(s) Completed: Chest X-Ray PERIPHERAL IV DATA: Not applicable SIGNED BY: RT Dameon(R) March 28, 2025 5:04 PM documented in this encounterKn[facility]07-22-2025 [facility] Telephone encounter Note* Telephone Encounter - José Miguel Choudhury RN - 03/28/2025 2:54 PM EDT Esther- [facility] reports she is with pt, and pt presents with fever 99.4, non productive loose cough, wheeze in posterior lobes, sweats day and night. BP 118/62 (60) 96% on RA. No s/s UTI. Offered appt in pcp office tomorrow. Pt declined, would like to be seen today. Pt agreeable to for evaluation. [facility]07-22-2025 Miscellaneous Notes* Telephone Encounter - José Miguel Choudhury RN - 03/28/2025 2:54 PM EDT Esther- [facility] reports she is with pt, and pt presents with fever 99.4, non productive loose cough, wheeze in posterior lobes, sweats day and night. BP 118/62 (60) 96% on RA. No s/s UTI. Offered appt in pcp office tomorrow. Pt declined, would like to be seen today. Pt agreeable to for evaluation. documented in [facility]Kn[facility]07-[facility]-2025 Instructions* Patient Instructions* Dian Rodas MD - 03/23/2025 1:58 PM EDT Based on your prior test results, penicillin were negative. You are at low risk for a severe, immediate allergic or anaphylactic reaction to penicillin and other penicillin-type antibiotics. Skin tests are unreliable for predicting delayed reactions. documented in this encounterKn[facility]07-17-2025 [facility] History of Present illness Narrative* [...] should new symptoms or problems arise. Dian Rodas MD Allergy & Immunology This is a [...] the possibility of [facility]introdu[facility] these [facility] REVIEW OF SYSTEMS: All other review of [...] Punctate keratitis, bilateral 10/08/2021 SAH (subarachnoid hemorrhage) ([facility]) 10/03/2023 Subarachnoid hemorrhage ([facility]) 10/03/2023 Tubular adenoma of colon 12/29/2017 MEDICATIONS: [...] no. SOCIAL HISTORY: Employer And Job Title: [employer] (No job title specified) Years Of Education [...] Central air Basement: Dry basement, Carpeted Mario: Dxth-gw-ywzi carpeting Dust mite controls: Dust mite controls [...] No rashes or lesions. documented in this encounterKn[facility]07-17-2025 [facility]25 Telephone encounter Note* Telephone Encounter - Kassidy Peña RN - 03/17/2025 2:37 PM EDT Esther with [facility] calls to report patient takes the dulcolax [...] us a call back. Kassidy Peña RN [facility]07-11-2025 Miscellaneous Notes* Telephone Encounter - Kassidy Peña RN - 03/17/2025 2:37 PM EDT Esther with [facility] calls to report patient takes the dulcolax [...] back. Kassidy Peña RN documented in this encounterKn[facility]06-30-2025 Telephone encounter Note * Telephone Encounter [...] Please advise. Thank you. Ashely Kahn MA. [facility]06-30-2025 Miscellaneous Notes* Telephone Encounter - Ashely [...] you. Ashely Kahn MA. documented in this encounterKnox [facility] Hospital06-26-2025 Instructions* Patient Instructions* Ken Contreras MD - 03/02/2025 12:20 PM EDT Therapy/Counseling [facility] [address] [place] [address] [address] [employer] [address] [address] [facility] [address] [place] [address] [facility] [address] [place] [address] [facility] [address] [place] [address] [employer] [address] [place] [address] [facility] [address] [place] [address] documented in this encounterKnox Community Hospital06-26-2025 [facility]06-[facility] History of Present illness Narrative* Ken Contreras MD - 03/02/2025 11:46 AM EDT This note was created using [employer] Networxter. Subjective Patient presents with: 4 week follow-up Geoffrey Nassar is a 89 year old female. Recording using [employer] software for draft documentation of the visit was discussed with the patient/authorized billing representative; all questions welcomed and answered. Patient/authorized billing representative agreed to proceed Depression: - Currently [...] started treatment. - Enjoys physical therapy at [facility] and plans to inquire about dry [...] Unspecified Whether Stage 3a Or 3b Ckd ([facility]) Physical Debility Oxygen Desaturation Social History Tobacco [...] ICD10: M25.552 Chronic. - See PT at [facility]. Call for orders of dry needling if needed. 3. MARTINES (dyspnea on exertion) - ICD9: 786.09, ICD10: R06.09 - Stress test next week at [facility]. 4. Contusion of left side of [...] - Attend your physical therapy sessions at [facility] for bursitis treatment and dry needling; [...] mood. Ken Contreras MD documented in this encounterKnox [facility] Hospital06-11-2025 Discharge summary [facility] Medical Records Department [address] [place] [address] Emergency Department Summary 02/15/25 MR#: [id number] Acct: [id number] Name: GEOFFREY NASSAR RAMACIEL Rep #:[id number] : 1935 89 From: [address] [...] Has history of asthma, hypothyroidism, non-ST elevation [place], GERD, and essential hypertension. She alsohas history [...] 2.5 mg/3 mL 2.5 mg inhalation Q4H [facility] N Sob &/Or 01/10/21 05/29/21 History (0.083 [...] 15:26 IMPRESSION: NO ACUTE FINDINGS [id number] 02/15/25 15:26 IMPRESSION: No acute cervical spine fracture. Spondylosis. Spondylolisthesis. Reading Location: [id number] Lumbar Spine X-Ray 02/15/25 16:40 IMPRESSION: No acute osseous abnormality. Spondylosis. Spondylolisthesis. Scoliosis. Reading Location: [id number] CT of the head without contrast and [...] will make your pain worse. Print Language: Citizen Of [place] Disposition Disposition: Home, Self Care What to do if you have Problems For any increased pain, shortness of breath, bleeding, nausea or vomiting, chestpain, or any unexpected problems, contact your Primary Care Provider. Call [facility] ([phone]) or report tothe closest Emergency Room. Call 911 if necessary. 02/15/25 1737 Cosigner Signature (if applicable): CC: Dr. Ken Contreras MD ~ Signed [facility]06-11-2025 Radiology Diagnostic study note [facility] Imaging Services [address] [place], [place] [address] Lumbar Spine 2 or 3 Views MR#: [id number] Acct: [id number] Name: GEOFFREY NASSAR Rep #: [id number] : 1935 F 89 From: Enrique De Leon MD PCP: Dr. Ken Contreras MD Status: R EG ER Study:Lumbar Spine 2 or 3 Views Date of Exam: 02/15/25 Exam# [id number] Ordering Dr: Jamshid Valencia MD PROCEDURE: LUMBAR [...] osseous abnormality. Spondylosis. Spondylolisthesis. Scoliosis. Reading Location: [id number] CC: Dr. Av Valencia MD; Dr. Ken Contreras MD ~ Statue Maker: Signed [facility]06-11-2025 Radiology Diagnostic study note [facility] Imaging Services [address] [place], [place] [id number] Spine Cervical without Contras MR#: [id number] Acct: [id number] Name: GEOFFREY NASSAR Rep #: [id number] 2 : 1935 F 89 From: Enrique De Leon MD PCP: Dr. Ken Contreras MD Status: R ER Study:Spine Cervical without Contras Date of Exam: 02/15/25 Exam# [id number] Ordering Dr: Jamshid Valencia MD PROCEDURE: SPINE [...] cervical spine fracture. Spondylosis. Spondylolisthesis. Reading Location: [id number] CC: Dr. Av Valencia MD; Dr. Ken Contreras MD ~ Statue Maker: Signed [facility]06-11-2025 Radiology Diagnostic study note [facility] Imaging Services [address] [place] [address] Brain/Head without Contrast MR#: [id number] Acct: [id number] Name: GEOFFREY NASSAR Rep #: [id number] 0 : 1935 F 89 From: Enrique De Leon MD PCP: Dr. Ken Contreras MD Status: R EG ER Study:Brain/Head without Contrast Date of Exa m: 02/15/25 Exam# [id number] Ordering Dr: Jamshid Valencia MD PROCEDURE: BRAIN/HEAD [...] Contrast IMPRESSION: NO ACUTE FINDINGS Reading Location: [id number] CC: Dr. Av Valencia MD; Dr. Ken Contreras MD ~ Statue Maker: Signed [facility]06-11-2025 Discharge summary Author Av Valencia [facility] Note Date/Time February 15, 2025 5:37 pm [facility] Medical Records Department [address] [place] [address] Emergency Department Summary 02/15/25 MR#: [id number] Acct: [id number] Name: GEOFFREY NASSAR Rep #:[id number] : 1935 89 From: Av Valencia [...] Has history of asthma, hypothyroidism, non-ST elevation [place], GERD, and essential hypertension. She alsohas history [...] similar symptoms: No Recent Illness/Hospitalization: No PFSH [facility] Medical History Presence of cardiac pacemaker [...] 2.5 mg/3 mL 2.5 mg inhalation Q4H GA N Sob &/Or 01/10/21 05/29/21 History (0.083 [...] 15:26 IMPRESSION: NO ACUTE FINDINGS Reading Location: [id number] Cervical Spine CT 02/15/25 15:26 IMPRESSION: No acute cervical spine fracture. Spondylosis. Spondylolisthesis. Reading Location: [id number] Lumbar Spine X-Ray 02/15/25 16:40 IMPRESSION: No acute osseous abnormality. Spondylosis. Spondylolisthesis. Scoliosis. Reading Location: [id number] CT of the head without contrast and [...] will make your pain worse. Print Language: Citizen Of [place] Disposition Disposition: Home, Self Care What to do if you have Problems For any increased pain, shortness of breath, bleeding, nausea or vomiting, chestpain, or any unexpected problems, contact your Primary Care Provider. Call [facility] ([phone]) or report to the closest Emergency Room. Call 911 if necessary. 02/15/25 1737 <Electronically signed by Av Valencia MD> Cosigner Signature (if applicable): CC: Dr. Ken Contreras MD ~ Signed [facility] Work Phone: 1(353) 150-628806-11-2025 Telephone encounter Note* Telephone Encounter - Kassidy Peña RN - 02/15/2025 11:49 AM EDT Esther with [facility] calls with patient to report [...] Initial Assessment Questions 1. MECHANISM: Esther with [facility] is currently visiting patient and [...] No neck pain, vomiting) Protocols used: Head Sjjuvc-WJIPM-OX [facility]06-11-2025 Miscellaneous Notes* Telephone Encounter - Kassidy Peña RN - 02/15/2025 11:49 AM EDT Esther with [facility] calls with patient to report [...] Initial Assessment Questions 1. MECHANISM: Esther with [facility] is currently visiting patient and [...] No neck pain, vomiting) Protocols used: Head Srlusk-VFENS-SQ documented in this encounterKnox [facility] Hospital06-11-2025 Hospital Discharge instructions Additional Instructions 1. Expect to feel worse over the next 24 to 48 hours. 2. Do not be surprised if you have heard in more places than you presently do over the next day or 2 3. You will hurt for 3 to 7 days 4. Apply ice to areas of discomfort. Application heat will make your pain worse. [facility] Work Phone: [phone] Telephone encounter Note* Telephone Encounter - Adelaida Almendarez LPN - 02/06/2025 10:17 AM EDT [facility] Scheduling dept calling asking for another copy of the Nuclear stress test order to be faxed [phone]. She said need part where electronically signed it had been cut off. Printed order andfaxed as requested again. [facility]06-02-2025 Miscellaneous Notes* Telephone Encounter - Adelaida Almendarez LPN - 02/06/2025 10:17 AM EDT [facility] Scheduling dept calling asking for another copy of the Nuclear stress test order to be faxed [phone]. She said need part where electronically signed it had been cut off. Printed order andfaxed as requested again. documented in this encounterKnox [facility] Hospital05-30-2025 Telephone encounter Note * Telephone Encounter - Yessenia Perez LPN - 02/03/2025 11:25 AM EDT Patient is approved, no auth required. For stress test at [facility]. Faxed to [facility] to arranged. [facility]05-30-2025 Miscellaneous Notes* Telephone Encounter - Yessenia Perez LPN - 02/03/2025 11:25 AM EDT Patient is approved, no auth required. For stress test at [facility]. Faxed to [facility] to arranged. * Telephone Encounter - Yessenia Perez LPN - 02/03/2025 9:38 AM EDT 1.Faxed order to [facility] [employer] for dry needing. 2.Referral/precert for the stress test entered. Pending review. documented in this encounterKnox Community Hospital05-30-2025 Telephone encounter Note * Telephone Encounter - Luz Harden RN - 02/03/2025 11:01 AM EDT Esther nurse with [facility] calling in stating they work with pt. (see 08/12/24 note). She is requesting pt's OV note with Dr. Contreras from yesterday and the one from Dr. Mars from 01/25. Esther made aware of problems with outgoing calls and faxes and will make sure fax goes through but may not be til next week. Fax # is [phone]. [facility]05-30-2025 Miscellaneous Notes* Telephone Encounter - Luz Harden RN - 02/03/2025 11:01 AM EDT Esther nurse with [facility] calling in stating they work with pt. (see 08/12/24 note). She is requesting pt's OV note with Dr. Contreras from yesterday and the one from Dr. Mars from 01/25. Esther made aware of problems with outgoing calls and faxes and will make sure fax goes through but may not be til next week. Fax # is [phone]. documented in this encounterKnox Community Hospital05-30-2025 Telephone encounter Note * Telephone Encounter - Yessenia Perez LPN - 02/03/2025 9:38 AM EDT 1.Faxed order to [facility] for dry needing. 2.Referral/precert for the stress test entered. Pending review. [facility]05-29-2025 Instructions* Patient Instructions* Ken Contreras MD [...] to schedule the test. documented in this encounterKnox Community Hospital05-29-2025 NoteSy[facility]05-29-2025 History of Present illness Narrative* Ken Contreras MD - 02/02/2025 3:59 PM EDT This note was created using Steel Steed Studioriter. Subjective Patient presents with: Depression Hip Pain Shortness of Breath Geoffrey Nassar is a 89 year old female. Recording using LegalFácil software for draft documentationof the visit was discussed with the patient/authorized billing representative; all questions welcomed and answered. Patient/authorized billing representative agreed to proceed Depression: - Started Wellbutrin 4 weeks ago; experiencing dry mouth, left-sided throat discomfort, and dysphagia. - Symptoms improved, but dry mouth persists; using Biotene mouthwash for relief. - No improvement in energy levels or mood; ongoing fatigue. Left Hip Pain: - Received Kenalog and lidocaine injection from Dr. Mars; relief lasted about a month. - Informed by PRODUCTION STAGE MANAGER that another injection cannot be administered for [...] FACILITY Ken Contreras MD documented in this encounterKnox [facility] Hospital05-21-2025 [facility]Sy[facility]05-21-2025 NoteSy[facility]05-07-2025 NoteSy[facility]05-07-2025 History of Present illness Narrative* Ailyn Bonner, DOG BOARDER.ART GILDER - 01/11/2025 3:41 PM EDT IMPRESSION: Geoffrey [...] jaundice UE SAB EF EE WE WF Muffle Worker R 5/5 5/5 5/5 5/5 5/5 5/5 [...] which included preparing to see the patient, owpp-jg-aibf patient care, completing clinical documentation, performing a medically appropriate examination, counseling and educating the patient/family/caregiver, ordering medications, tests, or p rocedures and communicating results to the patient/family/caregiver. LAW Kebede.ART GILDER Physical Medicine & Rehab [facility] documented in this encounterKnox Community Hospital05-02-2025 NoteSycam[facility] Center05-02-2025 History of Present illness Narrative* Najma John RN - 01/06/2025 12:55 PM EDT Images from the original note were not included. CD [facility] Telephonic Outreach Provider Action/FYI Patient [...] 06, 2025 1:01 PM documented in this encounterKnox Community Hospital05-01-2025 NoteSycam[facility] Center05-01-2025 History of Present illness Narrative* Ken Contreras MD - 01/05/2025 4:41 PM EDT This note was created using Linux Networxter. Subjective Geoffrey Nassar is a 89 year [...] walk test here, she had to rest half-way with no desaturation. Review of Systems Constitutional: [...] Unspecified Whether Stage 3a Or 3b Ckd ([facility]) Physical Debility Oxygen Desaturation Social History Tobacco [...] progressive. - I recommend she see her supervisor tile and mottle sooner for consideration of stress testing. Ken [...] PCP - General (Internal Medicine) Dia Lopez, DOG BOARDER.ART GILDER as [place] Director (Internal Medicine) Ashely Miller MD (Pulmonary) Cami Mars MD (Geriatrics) Ruben Ferrara PA-C (Orthopedics) Outside specialists seen: Cardiology- Dr. Zane Mcpherson. Uro-gynecology- Dr. Christi Hansen. Counter Caser-Dr. Guzman Jolly. Case Coordinator-Dr. Neil Hawthorne. Optometry- Dr. Janett Varela, [place] [facility]- Dr. Jann Mello DME supplier: [employer], [employer], [place]. Medical/Family history review Reviewed and updated problem [...] Personalized prevention plan provided documented in this encounterKnox Community Hospital05-01-2025 Instructions* Patient Instructions* Ken Contreras MD [...] review all the medicines you take, even inbt-olh-nxkbwwa medicines. As you get older, the way [...] have certain medical conditions. documented in this encounterKnox Community Hospital05-01-2025 NoteSy[facility] Center04-17-2025 NoteSy[facility]04-17-2025 History of Present illness Narrative* [...] 22, 2024 12:39 PM documented in this encounterKnox Community Hospital04-17-2025 Evaluation note* Diagnosis Stage 3 chronic kidney disease, unspecified whether stage 3a or 3b CKD (HCC)- Primary documented in this encounter [facility]04-14-2025 Telephone encounter Note* Telephone Encounter - Norma Wong RN - 12/19/2024 10:49 AM EDT Esther calling with [facility] requesting patient's recent OV note with Dr. Mars be faxed to her at FAX #: [phone] for continuity of care. Faxed as requested. Norma Wong RN [facility]04-14-2025 Miscellaneous Notes* Telephone Encounter - Norma Wong RN - 12/19/2024 10:49 AM EDT Esther calling with [facility] requesting patient's recent OV note with Dr. Mars be faxed to her at FAX #: [phone] for continuity of care. Faxed as requested. Norma Wong RN documented in this encounterKnox Community Hospital04-11-2025 History of Present illness Narrative* Ruben [...] is making the bed, putting dishes in payable processor, or ambulating throughout the day. She states [...] 195 VAG HYST 250 GM/< W/RMVL TUBE&/OVARY 1997 uterine prolapse, hyst. bilateral oophorectomy VITRECTOMY MECHANICAL [...] back pain without sciatica M54.50 CONSULT TO SPINE [facility] G89.29 CONSULT TO PHYSICAL THERAPY CANCELED: [...] which included preparing to see the patient, etcd-yp-mdib patient care, completing clinical documentation, obtaining and/or reviewing separately obtained history, performing a medically appropriate examination, counseling and educating the patient/family/caregiver, and care coordination (not separately reported). PROCEDURE: Procedures Ruben Ferrara PA-C documented in this encounterKnox Community Hospital04-11-2025 NoteSycam[facility] Center04-09-2025 NoteSycam[facility] Center04-09-2025 History of Present illness Narrative* [...] her energy levels and has contacted her trading specialist to discuss adjusting the oxygen settings. She [...] patient consented to the use of ambient InPact.me software for draft documentation of the visit consistent with [facility] s Notice of Privacy Practices. Cami Mars MD documented in this encounterKnox Community Hospital04-08-2025 Telephone encounter Note * Telephone Encounter - Ria Mendoza LPN - 12/13/2024 4:13 PM EDT Order faxed to Alfredo Mendoza LPN [facility]04-08-2025 Miscellaneous Notes* Telephone Encounter - Ria [...] [employer]? Ria Mendoza LPN documented in this encounterKnox Community Hospital04-08-2025 Telephone encounter Note * Telephone Encounter [...] on 2L with [employer]? Ria Mendoza LPN [facility]04-02-2025 NoteSycamore Medical Center04-02-2025 History of Present illness Narrative* [...] 07, 2024 12:44 PM documented in this encounterKnox Community Hospital04-01-2025 Telephone encounter Note * Telephone Encounter [...] Pathak LPN December 06, 2024 10:15 AM [facility]04-01-2025 Miscellaneous Notes* Telephone Encounter - Cindy [...] 06, 2024 10:15 AM documented in this encounterKnox Community Hospital03-28-2025 Telephone encounter Note * Telephone Encounter - Faby Meza - 12/02/2024 9:20 AM EDT Spoke with patient and scheduled. 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 Asking for referral. Kialey Caraballo LPN * Telephone Encounter - Pat [...] see patient. Thank you documented in this encounterKnox Community Hospital03-27-2025 Telephone encounter Note * Telephone Encounter - Gauri Delgado MA - 12/01/2024 6:43 PM EDT Please assist patient with scheduling Dr. Mars/Geriatric schedule. 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 Asking for referral. Kailey Caraballo LPN [facility]03-27-2025 Telephone encounter Note* Telephone Encounter - Pat Domínguez - 12/01/2024 3:10 PM EDT Pt called in stating she is having back and hip pain and is requesting to see . Pt stated she did not want to see Primary care team for this reason and has a friend who referred her to Sarah.Please advise if willing to see patient. Thank you [facility]03-25-2025 Telephone encounter Note* Telephone Encounter - Faby Meza - 11/29/2024 1:41 PM EDT Spoke with patient and scheduled. Faby Meza [facility]03-25-2025 Miscellaneous Notes* Telephone Encounter - Faby [...] fracture. Consider orthopedic consultation. documented in this encounterKnox Community Hospital03-25-2025 Telephone encounter Note * Telephone Encounter - Ken Contreras MD - 11/29/2024 9:43 AM EDT ASSESSMENT/PLAN: 1. Hip pain, left - ICD9: 719.45, ICD10: M25.552 - CONSULT TO ORTHOPAEDICS Ken Contreras MD [facility]03-25-2025 Telephone encounter Note* Telephone Encounter - Ashely Kahn MA - 11/29/2024 9:38 AM EDT Patient was notified and willing to see ortho please put consult in Ashely Kahn MA [facility]03-25-2025 Telephone encounter Note* Telephone Encounter - Ashely Kahn MA - 11/29/2024 9:37 AM EDT Images from the original note were not included. Ken Contreras MD 11/29/2024 8:57 AM EDT No fracture. Consider orthopedic consultation. [facility]03-20-2025 History of Present illness Narrative* Julia [...] PATIENT PRESENTS WITH AN IMPLANTABLE OR ATTACHED AQUATIC LIFE LABORER: No RADIOLOGY DEPARTMENT: General X-ray: Exam(s) Completed: Pelvis X-Ray: Pelvis with Hip Left PERIPHERAL IV DATA: Not applicable SIGNED BY: Christophe Nagy November 24, 2024 6:47 PM documented in this encounterKnox Community Hospital03-20-2025 NoteSycamore Medical Center03-20-2025 NoteSy[facility] Center03-20-2025 History of Present illness Narrative* Ken Contreras MD - 11/24/2024 6:06 PM EDT This note was created using Steel Steed Studioriter. Subjective Patient presents with: Pain, Back: Radiates [...] Unspecified Whether Stage 3a Or 3b Ckd ([facility]) Physical Debility Oxygen Desaturation Current Outpatient Medications [...] the short term and not in the jail. Risks: Possible side effects were discussed including [...] Stable. Ken Contreras MD documented in this encounterKnox Community Hospital03-19-2025 NoteSycamore Medical Center03-19-2025 History of Present illness Narrative* Najma John RN - 11/23/2024 12:42 PM EDT Images from the original note were not included. [facility] Care Path Telephonic Outreach Provider Action/FYI Patient identified by Name and Date of . Discussed care with patient. Program Details Chronic Disease Management Status: Enrolled Effective Dates: 11/09/2024 - present Responsible Staff: Najma John, RN Support and Services: Hypertension, Chronic Kidney [...] 23, 2024 12:44 PM documented in this encounterKnox Community Hospital02-24-2025 Telephone encounter Note * Telephone Encounter [...] Please advise. Thank you. Kailey Caraballo LPN. [facility]02-24-2025 Miscellaneous Notes* Telephone Encounter - Kailey [...] you. Kailey Caraballo LPN. documented in this encounterKnox Community Hospital02-13-2025 History of Present illness Narrative* Ashely Miller MD - 10/20/2024 1:30 PM EST Images from the original note were not included. . Respiratory Lookout Note Patient name: Geoffrey Nassar PCP: Ken Contreras MD Referring Physician: CC: Multiple issues HPI: Geoffrey Nassar 89 year old female former remote smoker with PMH significant for obesity, asthma, depression, hypothyroidism, CAD, GERD, h/o bilateral PE 2016, h/o SAH, PPM, bronchiectasis last seen in [facility] in 2011, was following with [...] GEOFFREY NASSAR Date of Study: 05/05/2024 [facility]#: [id number] RESPIRATORY DATA: The study started at 01:06:17 [...] of recording time). In-Lab Sleep Study at [facility] in June 2.2 min 88% The difference in her home sleep apnea test and in-lab sleep apnea test may be related to Ativan usage. She normally takes Ativan at bedtime. PFT 2010: Air-trapping PFT [facility] 05/2019: FVC 2.54 L 106% FEV1 [...] by last echocardiogram -On diuretics. Follows with [facility] 4. Mild intermittent asthma, uncomplicated -Symptoms controlled with current inhaled therapy -Continue Breo Ellipta with as needed albuterol I spent a total of 65 minutes on the date of the service which included preparing to see the patient, kfnn-mk-qrmn patient care, completing clinical documentation, obtaining and/or reviewing separately obtained history, performing a medically appropriate examination, ordering medications, tests, or procedures, and independently interpreting results (not separately reported). Ashely Miller MD [facility] documented in this encounterKnox Community Hospital02-13-2025 NoteSycam[facility] Center02-04-2025 NoteSycamore Medical Center02-04-2025 History of Present illness Narrative* Dia Lopez, DOG BOARDER.ART GILDER - 10/11/2024 2:42 PM EST CC: Patient [...] her. She has tried to discusswith her trading specialist per sleep medicine recommendations but he doesn't [...] Mold, Penicillins, Shellfish, Spiriva With Handihaler [Tiotropium [place]], Sulfa (Sulfonamide Antibiotics), Symbicort [Budesonide-Formoterol], and Tetanus [...] normal. Health maintenance reviewed with patient: Covid-19 Vaccine(2023- season) due on 05/27/2025 RSV Vaccine(1 - [...] agreeable to treatment plan. Dia Lopez APRN.CNP Medical Decision Making: Problems: Moderate: 2+ stable chronic illnesses and New problem with uncertain prognosis Data: Unique source(s) for external note(s) reviewed: 2 Unique test result(s) reviewed: 2 Risk: Moderate: Drug management Medical Decision Making Level: 4 - Moderate documented in this encounterKnox Community Hospital01-22-2025 Miscellaneous Notes* Telephone Encounter - Faby Sears RN - 09/28/2024 10:53 AM EST Esther from [facility] calls and reports that patient [...] Patient never followed up with PCP or trading specialist after ER visit. Patient has appointment with provider next week and asking if this can be addressed. Advised Esther that patient needs to see trading specialist for this as well. Faby Sears RN documented in this encounterKnox Community Hospital01-22-2025 Telephone encounter Note * Telephone Encounter - Faby Sears RN - 09/28/2024 10:53 AM EST Esther from [facility] calls and reports that patient [...] Patient never followed up with PCP or trading specialist after ER visit. Patient has appointment with provider next week and asking if this can be addressed. Advised Esther that patient needs to see trading specialist for this as well. Faby Sears RN [facility]12-30-2024 Telephone encounter Note* Telephone Encounter - [...] Please advise. Thank you. Kailey Caraballo LPN. [facility]12-30-2024 Miscellaneous Notes* Telephone Encounter - Kailey [...] you. Kailey Caraballo LPN. documented in this encounterKnox Community Hospital12-06-2024 Telephone encounter Note * Telephone Encounter - Adelaida Almendarez LPN - 08/12/2024 1:41 PM EST Phoned patient and she had already spoken to Esther and she is willing to do the referral. Printed items and faxed as requested. [facility]12-06-2024 Miscellaneous Notes* Telephone Encounter - Adelaida [...] - 08/11/2024 3:01 PM EST Esther from [facility] calling, they see patients brother and know that patient had a recent fall and feel that they would be able to help with education and address safety concerns for patient. States if PCP is agreeable to please fax face sheet, H & P, and Med list to [phone]. Please advise. documented in [facility] encounterKn[facility]12-[facility]24 Telephone encounter Note * Telephone Encounter - Ken Contreras MD - 08/12/2024 7:49 AM EST Check with Geoffrey if she agrees to referral. Send referral with patient consent. [facility]12-05-2024 Telephone encounter Note* Telephone Encounter - Anny Frye LPN - 08/11/2024 3:01 PM EST Esther from [facility] calling, they see patients brother and know that patient had a recent fall and feel that they would be able to help with education and address safety concerns for patient. States if PCP is agreeable to please fax face sheet, H & P, and Med list to [phone]. Please advise. [facility]12-02-2024 Telephone encounter Note* Telephone Encounter - Cindy Pathak LPN - 08/08/2024 1:31 PM EST Patient called stating that she fell yesterday evening. Feel backward hitting her back and back of head. Squad was called and evaluated her but did [...] agreed to same and will go to [facility] ER. [facility]12-02-2024 Miscellaneous Notes* Telephone Encounter - Cindy Pathak LPN - 08/08/2024 1:31 PM EST Patient called stating that she fell yesterday evening. Feel backward hitting her back and back of head. Squad was called and evaluated her but did [...] agreed to same and will go to [facility] ER. documented in this encounterKn[facility]11-04-2024 Telephone encounter Note * Telephone Encounter - Meg Arreguin OCCA - 07/11/2024 1:02 PM EST Information faxed as requested below. EVAN Weeks [facility]11-04-2024 Miscellaneous Notes* Telephone Encounter - Meg Arreguin OCCA - 07/11/2024 1:02 PM EST Information faxed as requested below. EVAN Weeks * Telephone Encounter - Meg Arreguin OCCA - 07/08/2024 4:39 PM EDT TC to [facility] at . Office is currently closed, please call back later forfax number. EVAN Weeks * Telephone Encounter - Jyotsna Donohue APRN.CNP - 07/08/2024 3:20 PM EDT Please fax my progress note and her PSG results to her Feeder Driver Dr Jaswant Miller at [facility] Jyotsna Donohue APRN.BERTHA * Telephone Encounter - Jayde Bautista LPN - 06/24/2024 11:15 AM EDT Please see attached sleep study results- Scan on 06/24/2024 10:56 AM by Provider, External, PAJuan CarlosC: PSG [facility] 06/21/24 Jayde Bautista LPN documented in this encounterKnox Community Hospital11-01-2024 Telephone encounter Note * Telephone Encounter - Meg Arreguin OCCA - 07/08/2024 4:39 PM EDT TC to [facility] at . Office is currently closed, please call back later forfax number. EVAN Weeks [facility]11-01-2024 Telephone encounter Note* Telephone Encounter - Jyotsna Donohue APRN.CNP - 07/08/2024 3:20 PM EDT Please fax my progress note and her PSG results to her Feeder Driver Dr Jaswant Miller at [facility] Jyotsna Donohue APRN.CNP [facility] Work Phone: 1(549) 861-680011-01-2024 Instructions* Patient Instructions* Jyotsna Donohue APRN.CNP - 07/08/2024 11:09 AM EDT We will notify Dr Jaswant Miller of your in-lab sleep study results documented in this encounterKnox Community Hospital11-01-2024 History of Present illness Narrative* Jyotsna Donohue APRN.CNP - 07/08/2024 10:30 AM EDT Images from the original note were not included. [facility] Follow up/ Established [...] which included preparing to see the patient, lpww-qd-pyyn patient care, completing clinical documentation, obtaining and/or [...] even in the absence of respiratory events raul was sent for in- lab PSG which she had done at [facility]. She was put on supplemental O2 [...] better after taking lasix prescribed by her supervisor tile and mottle Dr Mcpherson, this is a new prescription for her, and he stopped amlodipine Her trading specialist is Dr Jaswant Miller at [facility] Sleep is fine Takes lorazepam 2 [...] are sorted in reverse-chronological order 04/14/2024 07/03/2024 [place] Sleepiness Scale Score 9 (No clinically significant [...] O2. Case discussed with Dr Cartwright. Her Feeder Driver is Dr Jaswant Miller at [facility] -- will update him on her PSG; pt is aware of this plan. Her sleep has improved with treatment of chronic UTI and with lasix from Cardiology, much less nocturia She can follow up with Sleep prn Jyotsna Donohue APRN.ART GILDER documented in this encounterKnox Community Hospital11-01-2024 NoteSycamore [facility] Center10-30-2024 Instructions* Patient Instructions* Ailyn Bonner APRN.CNP - 07/06/2024 2:58 PM EDT Continue to work with sleep medicine. Follow up in 6 months. documented in this encounterKnox Community Hospital10-30-2024 NoteSycamore Medical Center10-30-2024 History of Present illness Narrative* Ailyn Bonner [...] once oxygenation improves. Discussed reaching out to trading specialist. Pt agreeable. No orders found for this [...] results. She was continuing to work with [employer] is on hold due to oxygen desaturation. [...] jaundice UE SAB EF EE WE WF Muffle Worker R /5 5/5 5/5 5/5 5/5 5/5 L 5/5 5/5 5/5 5/5 5/5 5/ LE HF KF KE PF DF R / 5/5 5/5 5/5 5/5 L /5 5/5 5/5 5/5 5 During our face to face clinical encounter [...] which included preparing to see the patient, pyod-rq-xfnd patient care, completing clinical documentation, performing a medically appropriate examination, counseling and educating the patient/family/caregiver, ordering medications, tests, or p rocedures and communicating results to the patient/family/caregiver. LAW Kebede.ART GILDER [facility] documented in this encounterKnox Community Hospital10-18-2024 Telephone encounter Note * Telephone Encounter - Jayde Bautista LPN - 06/24/2024 11:15 AM EDT Please see attached sleep study results- Scan on 06/24/2024 10:56 AM by Provider, External, PAJuan CarlosC: PSG [facility] 06/21/24 Jayde Bautista LPN [facility]09-30-2024 Telephone encounter Note* Telephone Encounter - [...] Flores MA June 06, 2024 12:20 PM [facility]09-30-20[facility] Miscellaneous Notes* Telephone Encounter - Saida Flores [...] 06, 2024 12:20 PM documented in this encounterKnox Community Hospital09-30-2024 Telephone encounter Note * Telephone Encounter - Laurence Torres LPN - 06/06/2024 10:07 AM EDT Pt called in and has not heard anything regarding testing to be done at [facility] for a Polysomnogram. I have re-faxed orders, face sheet and supporting information to [phone]. I have asked the department to call pt to schedule. Pt aware if she does not hear from [facility] to call the department to schedule procedure. Referral has been place. Laurence Torres LPN [facility]09-30-2024 Miscellaneous Notes* Telephone Encounter - Laurence Torres LPN - 06/06/2024 10:07 AM EDT Pt called in and has not heard anything regarding testing to be done at [facility] for a Polysomnogram. I have re-faxed orders, face sheet and supporting information to [phone]. I have asked the department to call pt to schedule. Pt aware if she does not hear from [facility] to call the department to schedule procedure. Referral has been place. Laurence Torres LPN documented in this encounterKnox Community Hospital09-25-2024 Telephone encounter Note * Telephone Encounter - Jose Baron MA - 06/01/2024 9:30 AM EDT Received last office note request from [facility]. [facility] notes faxed and confirmationreceived [facility]09-[facility] Miscellaneous Notes* Telephone Encounter - Jose Baron MA - 06/01/2024 9:30 AM EDT Received last office note request from [facility]. [facility] notes faxed and confirmationreceived documented in this encounterKnox Community Hospital09-20-2024 Nurse Note* Ana Frye MA - 05/27/2024 10:10 AM EDT Per PCP EKG and Echo faxed to Dr. Miller's office with [facility] at [phone]. Ana Frye MA [facility]09-20-2024 Nurse Note* Ana Frye MA - 05/27/2024 10:10 AM EDT Per PCP EKG and Echo faxed to Dr. Miller's office with [facility] at [phone]. Ana Frye MA documented in this encounterKnox Community Hospital09-20-2024 History of Present illness Narrative* Bria [...] PATIENT PRESENTS WITH AN IMPLANTABLE OR ATTACHED AQUATIC LIFE LABORER: No RADIOLOGY DEPARTMENT: General X-ray: Exam(s) Completed: Chest X-Ray PERIPHERAL IV DATA: Not applicable SIGNED BY: RT Luz Marina(R) May 27, 2024 9:04 AM documented in this encounterKnox Community Hospital09-20-2024 NoteSycamore Medical Center09-20-2024 NoteSycamore Medical Center09-20-2024 History of Present illness Narrative* Ken Contreras MD - 05/27/2024 8:24 AM EDT This note was created using [employer] Studior[employer]. Subjective Patient presents with: Follow Up: From [...] has known asthma and bronchiectasis followed by [facility]. She was on an annual follow [...] BNP Ken Contreras MD documented in this encounterKnox Community Hospital09-19-2024 NoteSycamore Medical Center09-19-2024 History of Present illness Narrative* [...] sharply on her. PLAN FOR NEXT VISIT: [place] SUBJECTIVE: Patient notes twice this week she [...] was used in selection of appropriate interventions. Self-Alf Management: 1: Long discussion with patient about [...] 1615 Jackie Lainez PT documented in this encounterKnox Community Hospital09-18-2024 Telephone encounter Note * Telephone Encounter - Jayde Bautista LPN - 05/25/2024 4:18 PM EDT Orders for PSG faxed to [facility] per request. Jayde Bautista LPN [facility]09-18-2024 Miscellaneous Notes* Telephone Encounter - Jayde Bautista LPN - 05/25/2024 4:18 PM EDT Orders for PSG faxed to [facility] per request. Jayde Bautista LPN * Telephone Encounter - Pat Domínguez - 05/25/2024 4:07 PM EDT Pt would like PSG done at [facility]. Please fax order. Thank you documented in this encounterKnox Community Hospital09-18-2024 Telephone encounter Note * Telephone Encounter - Pat Domínguez - 05/25/2024 4:07 PM EDT Pt would like PSG done at [facility]. Please fax order. Thank you [facility]09-13-2024 NoteSycamore Medical Center09-13-2024 History of Present illness Narrative* [...] patient safety with use of gait belt. Self-Alf Management: 1: Education on symptoms to watch [...] Session Stop Time : 1140 Kaela Brasher, WIND TURBINE MECHANIC Dave Padilla PT documented in this encounterKnox Community Hospital09-09-2024 Telephone encounter Note * Telephone Encounter - Jayde Bautista LPN - 05/16/2024 4:57 PM EDT Pt is agreeable, please place order. Jayde Bautista LPN [facility]09-09-2024 Miscellaneous Notes* Telephone Encounter - Jayde [...] previously seen by Dr. Reynold Miller at [facility]. Kaya Cartwright MD documented in this encounterKnox Community Hospital09-09-2024 Telephone encounter Note * Telephone Encounter - Kaya Cartwright Jr., MD - 05/16/2024 11:37 AM EDT I would recommend an in lab study to better evaluate. If pt willing, will place order. Kaya Cartwright MD [facility]09-09-2024 NoteSycamore Medical Center09-09-2024 History of Present illness Narrative* [...] noted. Rhoda Alcazar MD documented in this encounterKnox Community Hospital09-09-2024 Telephone encounter Note * Telephone Encounter - Jayde Bautista LPN - 05/16/2024 10:37 AM EDT TC to pt who voiced understanding with seeing Pulm at the hospital. If it is recommended to do an in lab study, pt is agreeable. Jayde Bautista LPN [facility]09-09-2024 Telephone encounter Note* Telephone Encounter - Jayde Bautista LPN - 05/16/2024 8:48 AM EDT ----- Message from Kaya Cartwright MD sent at 05/13/2024 6:21 PM EDT ----- Patient with hypoxia at night. Patient not wanting in lab sleep study. For hypoxia recommend followup with pulmonary - previously seen by Dr. Reynold Miller at [facility]. Kaya Cartwright MD [facility]09-06-2024 Telephone encounter Note* Telephone Encounter - Adelaida Almendarez LPN - 05/13/2024 3:22 PM EDT Phoned patient aware referral is in computer. Assisted with transfer to trainer to get ENT appt set up hopefully in [place]. [facility]09-06-2024 Miscellaneous Notes* Telephone Encounter - Adelaida Almendarez LPN - 05/13/2024 3:22 PM EDT Phoned patient aware referral is in computer. Assisted with transfer to trainer to get ENT appt set up hopefully in [place]. * Telephone Encounter - Faby Sears RN - 05/13/2024 2:00 PM EDT Patient calls and is asking if provider can place an ENT referral. Patient would like to see if shecan get into [facility]. Patient can't get into [facility] until end of month and patientstates that she needs to be seen sooner than that. Please review and advise, Faby Sears RN documented in this encounterKnox Community Hospital09-06-2024 Telephone encounter Note * Telephone Encounter - Dia Lopez, KALEE.ART GILDER - 05/13/2024 2:18 PM EDT Addressed at office visit today Dia Lopez APRN.CNP [facility]09-06-2024 Miscellaneous Notes* Telephone Encounter - Dia Lopez APRN.CNP - 05/13/2024 2:18 PM EDT Addressed at office visit today Dia Lopez APRN.CNP documented in this encounterKnox Community Hospital09-06-2024 Telephone encounter Note * Telephone Encounter - Faby Sears RN - 05/13/2024 2:00 PM EDT Patient calls and is asking if provider can place an ENT referral. Patient would like to see if shecan get into [facility]. Patient can't get into [facility] until end of month and patientstates that she needs to be seen sooner than that. 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 Last appointment 02/11/24. Last Pacemaker check 12/25/23. Cardiac testing- carotid ultrasound 02/25 without significant stenosis; echocardiogram 10/03 EF normal, no significant valvular or structural abnormalities; stress test 01/09/21 without acute findings. 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 Last appointment 02/26/24. No [...] removal 11/19/11, 11/24/112004: SLING OPER STRES INCONTINENCE 195: TONSILLECTOMY HX 1996: VAG HYST 250 GM/< W/RMVL TUBE&/OVARY Comment: uterine prolapse, hyst. bilateral oophorectomy No date: VITRECTOMY MECHANICAL PARS PLANA; Left ALLERGIES Shellfish Containing Products, Penicillamine, Benadryl [Diphenhydramine Hcl], Cats, Cipro[Ciprofloxacin], Dust, Ketamine, Mold, Penicillins, Shellfish, Spiriva With Handihaler [Tiotropium [place]], Sulfa (Sulfonamide Antibiotics), Symbicort [Budesonide-Formoterol], and Tetanus [...] (FLUSH) INJECTION SYRINGE She will contact her trading specialist to discuss lung function testing Follow-up pending [...] plan. Dia Lopez APRN.CNP documented in this encounterKnox Community Hospital09-06-2024 NoteSycamore Medical Center09-05-2024 Telephone encounter Note* Telephone Encounter - Dia Lopez APRN.CNP - 05/12/2024 1:53 PM EDT Will address tomorrow Dia Lopez APRN.CNP [facility]09-05-2024 Miscellaneous Notes* Telephone Encounter - Dia Lopez APRN.CNP - 05/12/2024 1:53 PM EDT Will address tomorrow Dia Lopez APRN.CNP * Telephone Encounter - Ailyn Simpson - 05/12/2024 1:21 PM EDT Patient transferred to [facility] for assistance with scheduling lab [...] to evaluate hypoxia on 05/13/24. Transferred to trainer for in lab sleep study. Ute Gibbs RN documented in this encounterKnox Community Hospital09-05-2024 Telephone encounter Note * Telephone Encounter - Ailyn Simpson - 05/12/2024 1:21 PM EDT Patient transferred to [facility] for assistance with scheduling lab sleep study. No orders available in patient's chart, [facility] unable to schedule without orders. Please notify patient when orders have been signed and are available. [facility]09-05-20[facility] Telephone encounter Note* Telephone Encounter - [...] to evaluate hypoxia on 05/13/24. Transferred to trainer for in lab sleep study. Ute M Lentine, RN [facility]09-05-2024 NoteSycamore Medical Center09-05-2024 History of Present illness Narrative* [...] 1229 DIONI Magana PT documented in this encounterKnox Community Hospital08-30-2024 NoteSycamore Medical Center08-30-2024 History of Present illness Narrative* Aubrey Sarmiento - 05/06/2024 10:51 AM EDT Sleep Study Check-In Documentation Date: May 06, 2024 Name: Geoffrey Nassar Comments: HST was returned in working order with all sleep questionnaires Aubrey Sarmiento * Cher North - 05/02/2024 8:50 PM EDT Nomad # [id number] , date shipped out 05-03-24 Fed ex only Tracking mailout: [id number] Tracking return: [id number] * Alison Siddiqi - 04/29/2024 8:55 AM EDT April 29, 2024 An order has been received for Home Sleep Apnea Test (HSAT) from Kaya Whitman Jr., MD , A. Sleep Center Staff/Land Leasing Information Clerk Staff Orders. Visit prep complete - Please refer to the sleep study order (under procedures tab) for protocol details and special instructions. The sleep study is scheduled for 05/03. Insurance: Payor: MEDICARE / Plan: MEDICARE A AND B / Product Type: Medicare / Payer/Plan Subscr Sex Relation Sub. Ins. ID Effective Group Num 1. MEDICARE - ME* GEOFFREY NASSAR 1935 Female Self [id number] 02/05/[address] ANTHEM - ANTH* GEOFFREY NASSAR 1935 Female Self [id number] 08/07/16 [id number] [id number] Alison Siddiqi documented in this encounterKnox Community Hospital08-29-2024 NoteSycamore Medical Center08-29-2024 History of Present illness Narrative* Jackie Lainez [...] 1318 Jackie Lainez PT documented in this encounterKnox Community Hospital08-26-2024 NoteHNO ID: [id number] Author: ?, ?, ? Service: ? Author Type: ? Type: Progress Notes Filed: 05/06/2024 10:52 Note Text: Nomad # [id number] , date shipped out 05-03-24 Fed ex only Tracking mailout: [id number] Tracking return: [id number]08-26-2024 Telephone encounter Note* Telephone Encounter [...] Gibbs RN May 02, 2024 2:15 PM [facility]08-26-2024 Miscellaneous Notes* Telephone Encounter - Ute [...] 02, 2024 2:15 PM documented in this encounterKnox Community Hospital08-23-2024 NoteSycamore Medical Center08-21-2024 NoteSycam[facility] Center08-21-2024 History of Present illness Narrative* Jackie Lainez, [...] in SLS to reflect decreased fall risk. [place] in home exercise program including cardiovascular exercise. Planned Interventions, Frequency, and Duration: Current Frequency: 1x/week Duration: 8 weeks Total Number of Visits Planned: 8 Planned Treatment Interventions: Therapeutic exercise (31782), Neuromuscular re- education (78132), Manual therapy (79811), Therapeutic activities (92242), Self- retirement management (20549), Patient/Family/Caregiver Education, Body Mechanics Training, Gait Training (65563) PLAN FOR NEXT VISIT: Initiate balance exercises [...] Lainez PT - 04/26/2024 3:42 PM EDT Program_ID:[id number] Access Code: [email or web address] URL: [email or web address] Date: 04-26-2024 Prepared By: Jackie Lainez Program [...] sets - 10 reps documented in this encounterKnox Community Hospital08-15-2024 History of Present illness Narrative* Michelle [...] 1935 Current Age: [age] year old MRN/E# [id number] Last Office Visit: 01/21/2024 Ms.Sally Barbie Nassar [...] colon who was seen for consult at [facility] on 10/03/2023 after transfer from an [...] follow up MIKEL Abernathy Neurosurgery Nurse Practitioner [facility] General FOLLOW UP: Return in about 6 months (around 10/22/2024) for routine visit (phone or in person). I have communicated my name and active licensure. The patient's identity and physical location wereverified at the time of this visit. Either the patient or their legal billing representative has been informed of the risks and benefits of -- and alternatives to -- treatment through a remote evaluation andconsents to proceed with the evaluation remotely. Time spent: 5-10 minutes Please Note: This note has been partially generated using Newsy, a speech recognition software program, and may contain errors including punctuation, grammar, spelling, gender, and inappropriate words or phrases that pertain to the system. documented in this encounterKnox Community Hospital08-15-2024 NoteHNO ID: [id number] Author: MICHELLE VAZQUEZ APRN.CNP Service: ? Author [...] 1935 Current Age: [age] year old MRN/E# [id number] Last Office Visit: 01/21/2024 Ms.Sally Barbie Nassar [...] colon who was seen for consult at [facility] on 10/03/2023 after transfer from an [...] (TYLENOL) 500 mg tablet (more content not included)...[facility]08-12-2024 Instructions* Patient Instructions* Kaya Cartwright Jr., MD - 04/18/2024 9:08 AM EDT Your most recent body mass index (BMI) that we have on record is 31.31 kg/m2. Obstructive sleep apnea (JADIEL) worsens with an increase in weight; reduction in weight may improve or resolve your JADIEL. Ifyou are not already seeking treatment, there are resources available at the [facility] such as a nutrition consultation or referral to weight management programs at our [facility]. Please let us know if we can assist with a referral. documented in this encounterKnox Community Hospital08-12-2024 NoteSycamore Medical Center08-12-2024 History of Present illness Narrative* [...] in 2018 that per report was unremarkable ([facility]) -- note BMI unchanged since that [...] in the AM around Noon, 1PM, 2PM. has so many things needs to do [...] does worry about it. Also adaughter in [place], [place] she worries about. States another daughter with eating disorder and granddaughter in [place] who is alone but a future dancer. 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 and multiple meds, has [...] 43.5 09/29/2023 34.9 36.3 05/21/2023 42.3 43.5 [place] Sleepiness Scale Scores 04/14/2024 [place] Sleepiness Scale Score 9 Insomnia Severity Index [...] hemorrhage) (HCC) 12/29/2017: Tubular adenoma of colon FAMILY HISTORY [...] Wt 77.7 kg (171 lb 3.2 oz) TbN082% BMI 31.31 kg/m GENERAL EXAM: General appearance: [...] which included preparing to see the patient, mmxa-wu-ossc patient care, completing clinical documentation, obtaining and/or reviewing separately obtained history, performing a medically appropriate examination, counseling and educating the pa tient/family/caregiver, ordering medications, tests, or procedures, and communicating results to the patient/family/caregiver. PDMP website checked and validated. All prescriptions have been APPROPRIATELY filled. No suspiciousactivity was identified. 04/18/2024 by Kaya Cartwright MD documented in this encounterKnox Community Hospital07-29-2024 Telephone encounter Note * Telephone Encounter - Leanne AlonsoPEYTON lewis - 04/04/2024 7:26 AM EDT Prescription Refill [...] Alonso LPN April 04, 2024 7:26 AM [facility]07-29-2024 Miscellaneous Notes* Telephone Encounter - Christin [...] 04, 2024 7:26 AM documented in this encounterKnox Community Hospital07-24-2024 History of Present illness Narrative* Dia Lopez, DOG BOARDER.ART GILDER - 03/30/2024 3:04 PM EDT Images from [...] She has mild asthma, follows up with trading specialist yearly. No recent exacerbations and using inhalers [...] Mold, Penicillins, Shellfish, Spiriva With Handihaler [Tiotropium [place]], Sulfa (Sulfonamide Antibiotics), Symbicort [Budesonide-Formoterol], and Tetanus [...] Patient agreeable to treatment plan. Dia Lopez APRN.ART GILDER documented in this encounterKnox Community Hospital06-26-2024 Telephone encounter Note * Telephone Encounter [...] Please advise. Thank you. Kailey Caraballo LPN. [facility]06-26-2024 Miscellaneous Notes* Telephone Encounter - Kailey [...] you. Kailey Caraballo LPN. documented [facility] Telephone encounter Note * Telephone Encounter - Norma Wong RN - 02/15/2024 11:36 AM EDT Patient returned call and given provider's message below and patient verbalized understanding. Gee Wong RN [facility]06-10[facility] Miscellaneous Notes* Telephone Encounter - Norma [...] on Saturdays and Sundays. Authorizing Provider: KEN OCNTRERAS MD * Telephone Encounter - Yessenia Perez LPN - 02/12/2024 3:22 PM EDT Called pt and pharmacy verified. She report she has been fatigued for some time. Cardiology ordered the labs. That note is too in scanned documents. * Telephone Encounter - Cindy Pathak LPN - 02/12/2024 3:07 PM EDT Patient called to alert PCP of low TSH that was resulted 02/11/2024 at [facility]. Current dose of levothyroxine is 88 MCG 6 days a week. documented in this encounterKn[facility]06-10-[facility]24 Telephone encounter Note * Telephone Encounter - Yessenia Perez LPN - 02/15/2024 9:40 AM EDT Message left for pt to return call to a nurse. [facility]06-[facility] Telephone encounter Note* Telephone Encounter - Ken Contreras MD - 02/13/2024 12:22 PM EDT ASSESSMENT/PLAN: 1. Acquired hypothyroidism - ICD9: 244.9, ICD10: E03.9 Decrease dose. Requested Prescriptions Signed Prescriptions Disp Refills levothyroxine (SYNTHROID) 88 mcg tablet 66 tablet 1 Sig: Take 1 tablet by mouth five times a week. Mondays thru Fridays. None on Saturdays and Sundays. Authorizing Provider: KEN CONTRERAS MD [facility]06-07[facility] Telephone encounter Note* Telephone Encounter - Yessenia Perez LPN - 02/12/2024 3:22 PM EDT Called pt and pharmacy verified. She report she has been fatigued for some time. Cardiology ordered the labs. That note is too in scanned documents. [facility] Telephone encounter Note* Telephone Encounter - Cindy Pathak LPN - 02/12/2024 3:07 PM EDT Patient called to alert PCP of low TSH that was resulted 02/11/2024 at [facility]. Current dose of levothyroxine is 88 MCG 6 days a week. [facility]05-[facility]24 NoteHNO ID: [id number] Author: JOSE DIAZ CCC-PERIPHERAL VASCULAR TECH Service: ? Author Type: Speech Language Pathologist Type: Progress Notes Filed: 01/27/2024 16:46 Note Text: Episode Visit Count: 1 Therapist That Will Accept/Oversee The Plan Of Care: Jennifer Start of Care Date: 01/27/24 Onset Date: 09/07/23 (- fall in 09/2023) Plan of Care Certification Date: 01/27/24 Next Certification Due Date: 02/26/24 Patient Identified by Name and Date of : Yes [facility] SPEECH and COGNITIVE LINGUISTIC EVALUATION PLAN OF CARE: Impression: Functional communication without limitations in: Speech Communication deficits identified: Cognitive deficits RECOMMENDATION: PERIPHERAL VASCULAR TECH Recommendations: Outpatient Speech Therapy Results and Recommendations [...] and Duration: Planned Treatment Interventions: Cognitive-Linguistic Training (84481, 11760, 29492), Patient / Caregiver Education/ Training Current Frequency: [...] Eval Sound Production with Language Expression and Television Host (54763) Speech/Language Therapy (more content not included)...[id number] History of Present illness Narrative* Jose Daiz, RENU-PERIPHERAL VASCULAR TECH - 01/27/2024 3:31 PM EDT Episode Visit Count: 1 Therapist That Will Accept/Oversee The Plan Of Care: Jennifer Start of Care Date: 01/27/24 Onset Date: 09/07/23 (- fall in 09/2023) Plan of Care Certification Date: 01/27/24 Next Certification Due Date: 02/26/24 Patient Identified by Name and Date of : Yes [facility] SPEECH and COGNITIVE LINGUISTIC EVALUATION PLAN OF CARE: Impression: Functional communication without limitations in: Speech Communication deficits identified: Cognitive deficits RECOMMENDATION: PERIPHERAL VASCULAR TECH Recommendations: Outpatient Speech Therapy Results and Recommendations [...] and Duration: Planned Treatment Interventions: Cognitive-Linguistic Training (25886, 36665, 36657), Patient / Caregiver Education/ Training Current Frequency: [...] Eval Sound Production with Language Expression and Television Host (00402) Speech/Language Therapy (34067): Skilled Intervention: Educated and instructed patient on compensatory strategies for word-finding, complex reasoning, categorization, and thought organization Educated and instructed patient on memory recall strategies such as verbal repetition, visualization, association, chunking, graphic skills, and designated routine. Provided multi-modality cues in simple reasoning, sequencing, and visual reasoning / organization. Current Home Program: - memory strategies Billing: Eval Sound Production with Language Expression and Television Host (18597) and Speech Treatment (11888) Total time / Length of visit: 60 minutes Session Start Time : 1530 Session Stop Time : 1630 JACOB SelfPERIPHERAL VASCULAR TECH documented in this encounterKnox [facility] Hospital05-16-2024 History of Present illness Narrative* Michelle Vazquez APRN.ART GILDER - 01/21/2024 2:00 PM EDT NEUROSURGERY FOLLOW UP OFFICE NOTE Michelle Vazquez APRN.CNP Date of visit: January 21, 2024 Patient Name: Ms.Sally Barbie Nassar Date of : 1935 Current Age: [age] year old Sex: female MRN/E# [id number] Last Office Visit: 10/22/2023 CHIEF COMPLAINT: Patient presents with: Established Patient HPI: The patient presents for a follow up without new imaging for evaluation. This is an 88-year-old female with a PMHx of diverticulosis, HTN, PE, pacemaker, asthma, umbilical hernia, GERD, hypothyroidism, degenerative disc disease (lumbar) tubular adenoma of the colon who was seen for consult at [facility] on 10/03/2023 after transfer from an outside ED by Dr. Holder. Patient was seen after a fall in [facility] after tripping over a curb causing her [...] 3-month follow-up MIKEL Abernathy Neurosurgery Nurse Practitioner [facility] FOLLOW UP: Return in about 3 months (around 04/22/2024) for routine follow up. Please Note: This note has been partially generated using Newsy, a speech recognition software program, and may contain errors including punctuation, grammar, spelling, gender, and inappropriate words or phrases that pertain to the system. documented in this encounterKnox [facility] Hospital05-16-2024 NoteHNO ID: [id number] Author: MICHELLE VAZQUEZ APRN.CNP Service: ? Author Type: Nurse Practitioner Type: Progress Notes Filed: 01/21/2024 14:37 Note Text: NEUROSURGERY FOLLOW UP OFFICE NOTE Michelle Vazquez APRN.CNP Date of visit: January 21, 2024 Patient Name: Ms.Sally Barbie Nassar Date of : 1935 Current Age: [age] year old Sex: female MRN/E# [id number] Last Office Visit: 10/22/2023 CHIEF COMPLAINT: Patient presents with: Established Patient HPI: The patient presents for a follow up without new imaging for evaluation. This is an 88-year-old female with a PMHx of diverticulosis, HTN, PE, pacemaker, asthma, umbilical hernia, GERD, hypothyroidism, degenerative disc disease (lumbar) tubular adenoma of the colon who was seen for consult at [facility] on 10/03/2023 after transfer from an [...] PLANA Left FAMILY HISTORY (more content not included)...[facility]05-01-[facility] Instructions* Patient Instructions* Ailyn Bonner, DOG BOARDER.ART GILDER - 01/06/2024 3:13 PM EDT Referral placed for sleep medicine. Please call [phone] and schedule an appt with Dr. Kaya Cartwright- sleep medicine for evaluation. Referral placed for speech therapy. [place] documented in this encounterKn[facility] Hospital05-01-2024 History of Present illness Narrative* Ailyn [...] jaundice UE SAB EF EE WE WF Muffle Worker R 5/5 5/5 5/5 5/5 5/5 5/5 [...] Ailyn Bonner APRN.BERTHA Physical Medicine & Rehab [facility] documented in this encounterKnox [facility] Hospital04-01-2024 Miscellaneous Notes* Telephone Encounter - Saida [...] you. Saida Flores MA. documented in this encounterKnox Community Hospital03-05-2024 NoteHNO ID: [id number] Author: ARACELIS PORTILLO, PhD Service: ? Author Type: Psychologist Type: Progress Notes Filed: 11/10/2023 14:32 Note Text: 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 She shared [...] bleed and she was subsequently transferred to [facility] where she was admitted. Geoffrey stated [...] baseline. Activities of Daily Living: Hygiene: independent Medical Receptionist Assistant: independent - recently hired a gta and uses food delivery services from [employer] Medications: independent Finances: independent Driving: independent MEDICAL [...] cognitive or learning disord (more content not included)...[facility]03-05-2024 NoteHNO ID: [id number] Author: ARACELIS PORTILLO, PhD Service: ? Author Type: Psychologist Type: Progress Notes Filed: 11/10/2023 14:32 Note Text: [facility] Instructions* Patient Instructions* Tremaine Landon MD - 11/09/2023 2:27 PM EST Thank you very much for your visit! We will plan to see you in 8 weeks for follow up. Please schedule follow-up with Advanced Practice Provider (Ailyn Bonner) by calling at contact no. [phone] or [phone] for appointment scheduling. You were referred to [...] questions or problems with your medications at [phone]. documented in this encounterKnox Community Hospital03-04-2024 History of Present illness Narrative* Tremaine [...] this encounter. The patient chart reviewed in [facility] and history obtained/confirmed with patient. Geoffrey [...] 15 Brought in by: Initially evaluated in [facility] ER and transferred to [facility] Imaging: CT of head - Yes, multifocal subarachnoid hemorrhages Other injuries: None Hospital Course -ASA on hold, reversed with DDAVP -1 week course of Keppra given for seizure prophylaxis -Non-surgical treatment recommended by NSGY, Monitored in ICU, repeat imaging stable -She had no swallowing difficulty, evaluated by PERIPHERAL VASCULAR TECH -OT and PT assessment done -She was [...] at homewhen she feels wobbly especially during street sprinkler hours and at night. She uses cane [...] cleaning, laundry but she has assigned a gta to help with cleaning. She drives without [...] as noted above. 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 Will continue to monitor need for PERIPHERAL VASCULAR TECH and sleep medicine referral -Patient was educated on to gradual increase in activities as tolerated. -Continue use of cane/walker, follow fall precautions. I spent a total of 60 minutes on the date of the service which included preparing to see the patient, mqur-if-ygcp patient care, completing clinical documentation, performing a medically appropriate examination, counseling and educating the patient/family/caregiver, ordering medications, tests, or p rocedures and communicating results to the patient/family/caregiver. Tremaine Landon MD Physical Medicine & Rehab [facility] documented in this encounterKnox Community Hospital03-04-2024 NoteHNO ID: [id number] Author: TREMAINE LANDON MD Service: ? Author [...] this encounter. The patient chart reviewed in [facility] and history obtained/confirmed with patient. Geoffrey [...] 15 Brought in by: Initially evaluated in [facility] ER and transferred to [facility] Imaging: CT of head - Yes, multifocal subarachnoid hemorrhages Other injuries: None Hospital Course -ASA on hold, reversed with DDAVP -1 week course of Keppra given for seizure prophylaxis -Non-surgical treatment recommended by NSGY, Monitored in ICU, repeat imaging stable -She had no swallowing difficulty, evaluated by PERIPHERAL VASCULAR TECH -OT and PT assessment done -She was [...] home when she feels wobbly especially during street sprinkler hours and at night. She uses cane [...] cleaning, laundry but she has assigned a gta to help with cleaning. She drives without [...] Small volume bilateral suprat (more content not included)...[facility]02-28[facility] Miscellaneous Notes* Telephone Encounter - Kailey Caraballo LPN - 11/04/2023 11:46 AM EST TC to Geoffrey, she did not realize that she had a refill for Lorazepam, she will contact the pharmacy. Kailey Caraballo LPN documented in this encounterKnox Community Hospital02-27-2024 Miscellaneous Notes* Telephone Encounter - Kassidy [...] you. Kassidy Peña RN. documented in this encounterKnox Community Hospital02-22-2024 Miscellaneous Notes* Telephone Encounter - Ute [...] advise, Faby Sears RN documented in this encounterKnox Community Hospital02-15-2024 History of Present illness Narrative* Michelle Vazquez APRN.CNP - 10/22/2023 2:30 PM EST Images from the original note were not included. NEUROSURGERY FOLLOW UP OFFICE NOTE Michelle Vazquez APRN.CNP Date of visit: October 22, 2023 Patient Name: Ms.Sally Barbie Nassar Date of : 1935 Current Age: [age] year old Sex: female MRN/E# [id number] Last Office Visit: Hospital follow-up CHIEF COMPLAINT: [...] routine visit. MIKEL Abernathy Neurosurgery Nurse Practitioner [facility] FOLLOW UP: Return in about 3 months (around 01/20/2024) for routine visiit. Please Note: This note has been partially generated using Newsy, a speech recognition software program, and may contain errors including punctuation, grammar, spelling, gender, and inappropriate words or phrases that pertain to the system. documented in this encounterKnox Community Hospital02-15-2024 NoteHNO ID: [id number] Author: MICHELLE VAZQUEZ APRN.CNP Service: ? Author Type: Nurse Practitioner Type: Progress Notes Filed: 10/22/2023 16:05 Note Text: NEUROSURGERY FOLLOW UP OFFICE NOTE Michelle Vazquez APRN.CNP Date of visit: October 22, 2023 Patient Name: Ms.Sally Barbie Nassar Date of : 1935 Current Age: [age] year old Sex: female MRN/E# [id number] Last Office Visit: Hospital follow-up CHIEF COMPLAINT: Patient presents with: Established Patient HPI: The patient presents for a hospital follow up with imaging (CT B) for evaluation. This is an 88-year-old female with a PMHx of diverticulosis, HTN, PE, pacemaker, asthma, umbilical hernia, GERD, hypothyroidism, degenerative disc disease (lumbar) tubular adenoma of the colon who was seen for consult at [facility] on 10/03/2023 after transfer from an [...] 180 tablet 3 levothyroxine (more content not included)...[facility] 10-19-2023 History of Present illness Narrative* [...] PATIENT PRESENTS WITH AN IMPLANTABLE OR ATTACHED AQUATIC LIFE LABORER: No RADIOLOGY DEPARTMENT: CT; Exam(s) Completed: Brain PERIPHERAL IV DATA: Not applicable SIGNED BY: RT Andrea(R) October 19, 2023 4:11 PM documented in this encounterKnox Community Hospital02-07-2024 History of Present illness Narrative* Ken Contreras MD - 10/14/2023 1:03 PM EST This note was created using [employer]ed Studioriter. Subjective Patient presents with: Transition Of Care [...] and injuring her head. She wasevaluated in [facility] ER and transferred to [facility] due to bilateral SAH. Her aspirin [...] ordered. She had benefit from aquatherapy at [facility] a few years ago. She will call for order if she still felt weak after regular PT, OT. She had a walker at home. Ken Contreras MD documented in this encounterKnox Community Hospital01-29-2024 NoteHNO ID: [id number] Author: IRIS DELEON PA-C Service: General Surgery Author Type: Physician Architectural Drafting Instructor Type: Plan of Care Filed: 10/05/2023 13:45 Note Text: Trauma Surgery Plan of Care 10/05/2023 (10/05/2023, 1:45 PM): Met with patient earlier today and discussed code status. She stated that she thinks she has a DNR but would like to remain full code at this time per our discussion. Orders placed. Iris Deleon PA-C 10/05/2023 1:45 [facility]01-29-2024 NoteHNO ID: [id number] Author: IRIS DELEON PA-C Service: General Surgery Author Type: Physician Architectural Drafting Instructor Type: Progress Notes Filed: 10/05/2023 10:21 Note [...] 0659 10/05/23 07 - 10/06/23 0659 Shift 7553-5868 7349-6717 1298-6452 24 Hour Total 8219-5223 3748-6367 0482-7188 24 Hour Total INTAKE PO 560 560 [...] female s/p GLF on 10/02/2023 (Transfer from [place]) Imaging performed: 10/02/2023 - CT HN 10/03/2023 [...] weeks PCP INPATIENT ATTENDING (more content not included)...[facility] 10-05-2023 NoteHNO ID: [id number] Author: CORINA HOLDER MD Service: Neurosurgery Author Type: Physician Type: Plan of Care Filed: 10/05/2023 07:21 Note Text: Study #[id number]: Traumatic Brain Injury Patient Registry PI: Corina Holder MD Visit: Eligibility check Inclusion Criteria Age 18-99: Yes Radiographic evidence of a TBI confirmatory head computed tomography (CT) : Yes Exclusion Criteria Hfr-Mvsycbd-wyqmoqwz: No Age < 18 years of age: [...] Traumatic Brain Injury Patient Registry Corina Holder [facility]01-28-2024 NoteHNO ID: [id number] Author: ILENE VILLELA RN Service: Nursing Author Type: Registered Nurse Type: Progress Notes Filed: 10/04/2023 13:49 Note Text: Pt bladder scanned holding 230 cc, dr erazo notified, ordered to bladder scan at 1500 receivedDown [facility]01-28-2024 NoteHNO ID: [id number] Author: WEN GALICIA MD Service: General Surgery Author Type: Physician Type: Progress Notes Filed: 10/04/2023 09:59 Note Text: Trauma Surgery Progress Note SERVICE DATE: 10/04/2023 Trauma Service Pager: For questions or concerns Mon-Fri 6a-5p please page [phone]. After 5pm and on Weekends and Holidays, please page [phone] if in ICU or [phone] if on RNF. SUBJECTIVE: Patient seen this [...] 10/04/23 0659 10/04/23699 - 10/05/23 0659 Shift 7526-8594 3219-5688 5819-1960 24 Hour Total 0345-2700 7885-3448 1835-7253 24 Hour Total INTAKE PO 120 120 [...] pacemaker), prior cholecystectomy, STEPHON BSO presents from [place] with traumatic scattered SAH status post GLF with Imaging performed: CT HN (10/03) Traumatic Injuries: Multiple bilateral parietal and frontoparietal cortical SAH, small focus within right temporal lobe. Operations/Procedures: 1. NA Care Plan: Scattered Traumatic SAH NSGY following Status post DDAVP in ED Cont to hold ASA and thinners Transferred to [facility] from SICU Cont keppra 7 days [...] PATIENT NAME: Geoffrey Valentin (more content not included)...[facility] History of Past illness Narrative* Problem [...] of this encounter (statuses as of 10/29/2023) [facility] History of Past illness Narrative* Problem [...] of this encounter (statuses as of 11/04/2023) [facility] History of Past illness Narrative* Problem [...] of this encounter (statuses as of 11/05/2023) [facility] History of Past illness Narrative* Problem [...] 04/24/2021 Hyperlipemia 06/18/2010 01/08/2017 Dizziness and giddiness 08/27/2009/0 03/2013 Pain in joint, pelvic region and [...] of this encounter (statuses as of 11/10/2023) [facility] History of Past illness Narrative* Problem [...] of this encounter (statuses as of 12/07/2023) [facility]01-24-2024 Instructions* Patient Instructions* Dia Lopez, DOG BOARDER.ART GILDER - 09/30/2023 2:46 PM EST Screening schedule [...] review all the medicines you take, even cflq-zcw-rmjftzq medicines. As you get older, the way [...] have certain medical conditions. documented in this encounterKnox [facility] Hospital01-24-2024 History of Present illness Narrative* Dia [...] Pulmonology- Dr. Jaswant Miller, Uro-gynecology- Dr. Hansen, Counter Caser-Dr. Jolly, Case Coordinator-Dr. Neil Hawthorne, ophthalmology- [facility] [...] manageable and not affecting daily life. Bronchiectasis- trading specialist is Dr. Miller with [facility]. Symptoms are stable. Using Breo Ellipta [...] Counseled on low sodium diet Dia Lopez APRN.ART GILDER documented in this encounterKnox Community Hospital11-28-2023 History of Present illness Narrative* Bonnie [...] 04, 2023 2:04 PM documented in this encounterKnox [facility] Hospital10-31-2023 History of Present illness Narrative* William [...] 07, 2023 2:28 PM documented in this encounterKnox [facility] Hospital09-14-2023 History of Present illness Narrative* Dia Thayer APRN.ART GILDER - 05/21/2023 1:52 PM EDT Images from the original note were not included. CC: Patient presents with: ER F/U: 05/18/23 HPI Geoffrey Nassar is a 88 year old female who presents today for above. Patient presented to [facility] ER on05/18 with injury to face [...] Mold, Penicillins, Shellfish, Spiriva With Handihaler [Tiotropium [place]], Sulfa (Sulfonamide Antibiotics), Symbicort [Budesonide-Formoterol], Tetanus Toxoid [...] is alert. DATA REVIEWED: Outside chart from [facility] ER reviewed. ASSESSMENT/PLAN: 1. Fall on [...] plan. Dia Thayer APRN.BERTHA documented in this encounterKnox Community Hospital08-22-2023 Miscellaneous Notes* Telephone Encounter - Cindy [...] weeks. Cindy Pathak LPN documented in this encounterKnox Community Hospital07-05-2023 Miscellaneous Notes* Telephone Encounter - Kailey [...] you. Kailey Caraballo LPN documented in this encounterKnox Community Hospital06-12-2023 Miscellaneous Notes* Telephone Encounter - Adelaida Almendarez LPN - 02/16/2023 3:42 PM EDT Patient calling said she has been trying to get refills on 4 rx from [facility] and told her on hold and would need all new rx. This nurse called [facility] and spoke to Gudelia and all 4 [...] rx since not needed. documented in this encounterKnox Community Hospital05-05-2023 Discharge summary Author Shad Hunter [facility] January 09, 2023 10:18pm Note Date/Time January 09, 2023 7:07pm [facility] Medical Records Department [address] [place] [address] Emergency Department Summary 01/09/23 MR#: [id number] Acct: [id number] Name: GEOFFREY NASSAR Rep #:[id number] : 1935 87 From: Arturo Greer MD PCP: Dr. Ken Contreras MD Status:R EG ER Location: ED [facility] <Dr. Arturo Greer MD - Last Filed: [...] feel sick or ill in any way. [facility] <Dr. Arturo Greer MD - Last Filed: 01/09/23 22:07> [facility] Medical History Acute respiratory failure with [...] Ox 97 Oxygen Delivery Method Room Air [facility] <Dr. Arturo Greer MD - Last Filed: 01/09/23 22:07> [facility] Narrative Medical decision making narrative: My independent [...] 19:09 EDT Reading Location ID and State: [employer] / [place] Tel , Service support , <Dr. Shad Hunter MD - Last Filed: 01/09/23 22:18> [facility] Radiography Diagnostic Testing: Clinical Impression(s) from [...] your Primary Care Provider. Call [facility] ([phone]) or report to the closest Emergency Room. Call 911 if necessary. 01/09/232207 <Electronically signed by Arturo Greer MD> Cosigner Signature (if applicable): 01/09/232217 <Electronically signed by Shad Hunter MD> CC: Dr. Ken Contreras MD ~ Signed [facility] Work Phone: 1(193) 479-153405-05-2023 History of Present illness Narrative* Jorge Jordan [...] emergency room for evaluation. documented in this encounterKn[facility]04[facility]23 Miscellaneous Notes* Telephone Encounter - Pushpa Murphy RN - 12/30/2022 3:08 PM EDT Pt is using [facility]. Phone number is . Patient has been identified by name and date of : Yes, Provider Ben Date 12/30/22 Time 3631 Patient phones for refill(s): Requested Prescriptions Pending [...] were sent to the mail service pharmacy [facility] which was the wrong pharmacy. This is an independent pharmacy [phone]. When I called they they told me [...] FYI: pt had a phone number for [facility] pharmacy which is [employer] and she no longer has [employer]. Laurence Torres LPN : documented in this encounterKnox [facility] Hospital04-25-2023 Miscellaneous Notes* Telephone Encounter - Laurence Torres LPN - 12/30/2022 2:52 PM EDT This message has been closed and there is a phone encounter dated 12-30-22. Laurence Torres LPN documented in this encounterKnox [facility] Hospital04-05-2023 Miscellaneous Notes* Telephone Encounter - Anny Frye LPN - 12/10/2022 11:15 AM EDT Patient states that the medication was sent to the wrong pharmacy. Asking that the amlodipine and lisinopril be sent to [facility]'s in [place]. Orders pended. documented in this encounterKnox [facility] Hospital04-03-2023 Miscellaneous Notes* Telephone Encounter - Dia [...] pharmacy. Saida Flores Ma documented in this encounterKnox [facility] Hospital04-03-2023 Miscellaneous Notes* Telephone Encounter - Adelaida Almendarez LPN - 12/08/2022 11:26 AM EDT Patient calling asking about Lisinopril and Amlodipine rx. computer shows rx was sent on 11/17/2022 so she should not need new rx.Patient is calling [facility] pharmacy to find out what is going on, shehad never gotten the rx yet. documented in this encounterKnox [facility] Hospital03-13-2023 Miscellaneous Notes* Telephone Encounter - Cindy [...] advise. Cindy Pathak LPN documented in this encounterKnox Community Hospital02-25-2023 Miscellaneous Notes* Telephone Encounter - Seema [...] her. 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 Thank you. documented in this encounterKnox [facility] Hospital01-11-2023 Miscellaneous Notes* Addendum Note - Dia [...] 09/17/2022 2:55 PM EST [facility] phone # [phone] * Telephone Encounter - Kailey Caraballo LPN - 09/16/2022 2:11 PM EST Spoke to Geoffrey, she is going to call [employer] to verify. Will call back & ask to speak to a nurse. Kailey Caraballo LPN * Telephone Encounter - Dia Thayer APRN.CNP - 09/16/2022 9:37 AM EST There is a [facility] in [place], [place], is this the one she is referring to? Dia Thayer APRN.BERTHA * Telephone Encounter - Deidre West LPN - 09/15/2022 4:03 PM EST Pt calls to report she has a [facility]. Pt reports she needs new rx faxed to: [phone]. Could not find [facility] in [facility]. Pt reports phone # [phone]. Rx set to print. Patient has been [...] patient. Deidre West LPN documented in this encounterKnox Community Hospital11-25-2022 History of Present illness Narrative* Ken Contreras MD - 08/01/2022 3:01 PM EST This note was created using [employer]. Subjective Geoffrey Nassar is a 87 year [...] sexual function, balance, teeth/dentures: Not at all [place] anxious, stressed, angry, irritable, lonely, isolated, or [...] surgical system Left Eye on 08/18/[address] [facility]. If you have any questions please contact our office at [phone]. After office hours or on the weekend, please call Dr. Carlos on his cell phone at [phone]. documented in this [facility]11-08-2022 [...] surgical system Left Eye on 08/18/[address] [facility]. PHYSICAL EXAM: Vital Signs: Blood pressure [...] diagnosis, and treatment options. documented in this encounterKnox Community Hospital10-29-2022 History of Present illness Narrative* Misael [...] 06/30/2022 Negative Ketones, Urine 06/30/2022 Negative Specific [place], Ur 06/30/2022 1.010 Hemoglobin/Blood,Ur 06/30/2022 Negative pH, [...] Dr Tyrone Cooley MD documented in this encounterKnox Community Hospital10-27-2022 Miscellaneous Notes* Telephone Encounter - Yessenia Perez LPN - 07/03/2022 9:06 AM EDT Electronic PA completed for Sig: Take 1 Packet by mouth one time only for 1 dose. Sent to pharmacy as: fosfomycin (MONUROL) 3 g pack This was approved Authorized from September 07, 2021 to September 06, 2023 Information received electronically from payer Pharmacy notified. documented in this encounterKnox Community Hospital10-26-2022 Miscellaneous Notes* Telephone Encounter - Shayla [...] days after treatment. Thank you Jennifer Thayer APRN.BERTHA * Telephone Encounter - Norma Wong RN [...] hasn't taken it since. Requesting [facility] in [place]. Please call patient with update. Thank you. [...] computer already. Please advise documented in this encounterKnox Community Hospital10-17-2022 Miscellaneous Notes* Telephone Encounter - Sylvie [...] please send results to Dr. Hansen with [facility] as patient had requested this during her visit. Thank you Jennifer Thayer APRN.BERTHA documented in this encounterKnox Community Hospital10-13-2022 History of Present illness Narrative* Jennifer [...] chronic UTIs and sees Dr. Hansen at [facility] for urology. Requesting results to be [...] plan. Jennifer Thayer APRN.CNP documented in this encounterKnox Community Hospital09-26-2022 Miscellaneous Notes* Telephone Encounter - Kailey Davis [...] you. Kailey Caraballo LPN documented in this encounterKnox Community Hospital09-21-2022 Miscellaneous Notes* Telephone Encounter - Kailey Caraballo LPN - 05/28/2022 3:10 PM EDT Patient notified, verbalized understanding. Kailey Caraballo LPN * Telephone Encounter - Dia Thayer APRN.CNP - 05/28/2022 1:30 PM EDT I sent prescription for Keflex. If this doesn't help she will need to be seen. Can go to urgent care Dia Thayer APRN.BERTHA * Telephone Encounter - Mile Hunter RN [...] [facility] [place] I told her provider may need to see her in the office. Please call and advise. documented in this encounterKnox Community Hospital09-01-2022 Miscellaneous Notes* Telephone Encounter - Ute [...] she needs another antibiotic? She called her [employer] and was told to call her PCP. Patient uses [place] [facility] for her pharmacy if needed. Please advise documented in this encounterKnox Community Hospital08-31-2022 Miscellaneous Notes* Telephone Encounter - Dia Thayer APRN.BERTHA - 05/07/2022 5:30 PM EDT PDMP website checked and validated. All prescriptions have been APPROPRIATELY filled. No suspiciousactivity was identified. 05/07/2022 by Dia Thayer APRN.ART GILDER * Telephone Encounter - Saida Flores Ma - 05/07/2022 4:54 PM EDT [place]: 04/11/2022 Last refill: 01/10/2022 QTY: 30 Refills: 3 documented in this encounterKnox Community Hospital08-05-2022 Miscellaneous Notes* Telephone Encounter - Kassidy [...] itch. Sinus pressure and congestion. Protocols used: [id number] documented in this encounterKnox Community Hospital07-06-2022 Instructions* Patient Instructions* Geoff Carlos MD - 03/12/2022 3:55 PM EDT Current Ophthalmic Meds brimonidine-timolol (COMBIGAN) 0.2-0.5 % ophthalmic solution Use 1 Drop in the left eye twice daily. latanoprost (XALATAN) 0.005 % ophthalmic solution Use 1 Drop in both eyes daily at bedtime. If you have any questions please contact our office at [phone]. After office hours or on the weekend, please call Dr. Carlos on his cell phone at [phone]. documented in this encounterKnox Community Hospital07-06-2022 History of Present illness Narrative* Geoff [...] diagnosis, and treatment options. documented in this encounterKnox Community Hospital06-06-2022 Miscellaneous Notes* Telephone Encounter - Zane [...] notify patient. Zane Jack documented in this encounterKnox Community Hospital05-19-2022 History of Present illness Narrative* Shakira [...] 23, 2022 2:56 PM documented in this encounterKnox Community Hospital05-19-2022 History of Present illness Narrative* Ken Contreras MD - 01/23/2022 1:54 PM EDT This note was created using [employer]. Subjective Geoffrey Nassar is a 86 year [...] - good control The ASCVD Risk score (Duke DC Jr., et al., 2013) failed to [...] Noted. Ken Contreras MD documented in this encounterKnox Community Hospital05-03-2022 History of Present illness Narrative* Ria Matamoros DO - 01/07/2022 11:22 AM EDT This office note has been dictated. 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 Presence of cardiac pacemaker May, acute Sick sinus syndrome acute Sinus bradycardia acute Asthma acute [facility] Work Phone: 1(592) 997-851909-01-2021 Evaluation note* Diagnosis Onset Date Resolution Status 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 Presence of cardiac pacemaker May, acute Sick sinus syndrome acute Sinus bradycardia acute [facility] Work Phone: 1(933) 173-436209-01-2021 Evaluation note* Diagnosis Onset Date Resolution Status 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 Presence of cardiac pacemaker May, acute Sick sinus syndrome acute Sinus bradycardia acute 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 Essential hypertension acute Presence of cardiac pacemaker May, acute Sinus bradycardia acute [facility] Work Phone: 1(778) 498-421809-01-2021 Evaluation note* Diagnosis Onset Date Resolution Status Admit Date Chronotropic incompetence with sinus node dysfunction acute March 31, 2025 1:26pm Essential hypertension acute Ju ly 2024 1:26pm Presence of cardiac pacemaker May, a cute March 31, 2025 1:26pm [facility] Work Phone: 1(692) 489-584008-13-2021 History of Past illness Narrative* Problem Noted [...] of this encounter (statuses as of 12/02/2021) [facility] of Past illness Narrative* Problem [...] of this encounter (statuses as of 01/07/2022) [facility] of Past illness Narrative* Problem [...] of this encounter (statuses as of 01/10/2022) [facility] of Past illness Narrative* Problem [...] of this encounter (statuses as of 01/23/2022) [facility] Narrative* Problem [...] of this encounter (statuses as of 02/10/2022) [facility] Narrative* Problem [...] of this encounter (statuses as of 03/12/2022) [facility] Narrative* Problem [...] of this encounter (statuses as of 04/11/2022) [facility] Narrative* Problem [...] of this encounter (statuses as of 04/16/2022) [facility] Narrative* Problem [...] of this encounter (statuses as of 05/07/2022) [facility] Narrative* Problem [...] of this encounter (statuses as of 05/08/2022) [facility] Narrative* Problem [...] of this encounter (statuses as of 05/28/2022) [facility] Narrative* Problem [...] of this encounter (statuses as of 06/03/2022) [facility] Narrative* Problem [...] of this encounter (statuses as of 06/18/2022) [facility] Narrative* Problem [...] of this encounter (statuses as of 06/19/2022) [facility] Narrative* Problem [...] of this encounter (statuses as of 06/23/2022) [facility] Narrative* Problem [...] of this encounter (statuses as of 07/02/2022) [facility] Narrative* Problem [...] of this encounter (statuses as of 07/03/2022) [facility] Narrative* Problem [...] of this encounter (statuses as of 07/05/2022) [facility] Narrative* Problem [...] of this encounter (statuses as of 07/16/2022) [facility] Narrative* Problem [...] of this encounter (statuses as of 07/21/2022) [facility] Narrative* Problem Noted Date Resolved Date 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 0804/2021 Bradycardia 01/18/2021 08/01/2022 Conjunctivitis 11/06/2020 04/24/2021 Pseudophakia, [...] of this encounter (statuses as of 08/01/2022) [facility] Narrative* Problem [...] of this encounter (statuses as of 09/17/2022) [facility] Narrative* Problem [...] of this encounter (statuses as of 10/31/2022) [place] [address]-13-2021 History of Past illness Narrative* Problem Noted [...] of this encounter (statuses as of 11/01/2022) [facility] Narrative* Problem [...] of this encounter (statuses as of 11/17/2022) [facility] Narrative* Problem [...] of this encounter (statuses as of 12/08/2022) [facility] Narrative* Problem [...] of this encounter (statuses as of 12/08/2022) [facility] Narrative* Problem [...] of this encounter (statuses as of 12/10/2022) [facility] Narrative* Problem [...] of this encounter (statuses as of 12/31/2022) [facility] Narrative* Problem [...] of this encounter (statuses as of 12/31/2022) [facility] Narrative* Problem [...] of this encounter (statuses as of 01/10/2023) [facility] Narrative* Problem [...] of this encounter (statuses as of 02/09/2023) [facility] Narrative* Problem [...] Hyperlipemia 06/18/2010 01/08/2017 Dizziness and giddiness 08/27/2009 03/07/20 13 Pain in joint, pelvic region and [...] of this encounter (statuses as of 02/17/2023) [facility] Narrative* Problem [...] of this encounter (statuses as of 03/11/2023) [facility] Narrative* Problem [...] of this encounter (statuses as of 04/29/2023) [facility] Narrative* Problem [...] of this encounter (statuses as of 05/21/2023) [facility] Narrative* Problem [...] of this encounter (statuses as of 07/09/2023) [facility] N[facility]* Problem [...] of this encounter (statuses as of 07/11/2023) [facility]* Problem [...] of this encounter (statuses as of 08/05/2023) [facility]ative* Problem [...] of this encounter (statuses as of 08/05/2023) [facility]* Problem Noted Date Diagnosed Date Resolved Date 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 04/24/2021 Bradycardia 01/18/2021 08/01/2022 Conjunctivitis 11/06/2020 04/24/2021 Pseudophakia, both eyes 07/23/2020 08/04/2021 Glaucoma suspect of both eyes 05/01/2020 04/24/2021 [...] of this encounter (statuses as of 10/12/2023) [facility] N[facility]* Problem [...] of this encounter (statuses as of 10/14/2023) [facility]ative* Problem [...] of this encounter (statuses as of 10/20/2023) [facility] Narrative* Problem [...] of this encounter (statuses as of 10/22/2023) [facility] Diagnosis Venous (peripheral) insufficiency- Primary Unspecified venous (peripheral) insufficiency [facility] encounter [facility]* Diagnosis Pleurisy- Primary Pleurisy without [...] neoplasm of skin documented in this encounter [facility]* Diagnosis Primary open angle glaucoma (POAG) of both eyes, mild stage- Primary 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, bilateral, intermediate dry stage Essential hypertension Unspecified essential hypertension [facility] Diagnosis Anxiety Anxiety state, unspecified [facility]* Diagnosis Enthesopathy of right hip region Osteoarthritis, unspecified osteoarthritis type, unspecified site DDD (degenerative disc disease), lumbar Degeneration of lumbar or lumbosacral intervertebral disc [facility]* Diagnosis Urinary tract infection without hematuria, site unspecified- Primary Dysuria documented in this encounter [facility] note* Diagnosis Recurrent UTI (urinary tract infection)- Primary Urinary tract infection, site not specified [facility]* Diagnosis Recurrent UTI- Primary Urinary tract infection, site not specified [facility]* Diagnosis Recurrent UTI Urinary tract infection, site not specified [facility]* Diagnosis Primary open angle glaucoma (POAG) of both eyes, mild stage- Primary 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, bilateral, intermediate dry stage Essential hypertension Unspecified essential hypertension [facility]* Diagnosis Gastroesophageal reflux disease with esophagitis Primary open angle glaucoma (POAG) of left eye, mild stage [facility]* Diagnosis Medicare annual wellness visit, [...] eye, mild stage [facility]* Diagnosis DDD (degenerative disc disease), lumbar Degeneration of lumbar or lumbosacral intervertebral disc Depressive disorder w/ seasonal affective disorder Depressive disorder, not elsewhere classified Acquired hypothyroidism Unspecified hypothyroidism Enthesopathy of right hip region Osteoarthritis, unspecified osteoarthritis type, unspecified site Gastroesophageal reflux disease with esophagitis Anxiety Anxiety state, unspecified [facility]* Diagnosis DDD (degenerative disc disease), lumbar Degeneration of lumbar or lumbosacral intervertebral disc Depressive disorder w/ seasonal affective disorder Depressive disorder, not elsewhere classified Acquired hypothyroidism Unspecified hypothyroidism Enthesopathy of right hip region Osteoarthritis, unspecified osteoarthritis type, unspecified site Gastroesophageal reflux disease with esophagitis Anxiety Anxiety state, unspecified [facility] Acute constipation- Primary Unspecified constipation [facility]* Diagnosis Depressive disorder w/ seasonal affective disorder Depressive disorder, not elsewhere classified [facility]* Diagnosis DDD (degenerative disc disease), lumbar Degeneration of lumbar or lumbosacral intervertebral disc Depressive disorder w/ seasonal affective disorder Depressive disorder, not elsewhere classified Enthesopathy of right hip region Osteoarthritis, unspecified osteoarthritis type, unspecified site Acquired hypothyroidism Unspecified hypothyroidism [facility]* Diagnosis Anxiety Anxiety state, unspecified [facility]* Diagnosis Vitamin D deficiency Unspecified vitamin D deficiency [facility]* Diagnosis Onset Date Resolution Status Asthma acute Obesity acute 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 Essential hypertension acute Fatigue acute Presence of cardiac pacemaker May, acute Sick sinus syndrome acute Sinus bradycardia acute [facility] Work Phone: Evaluation note* Diagnosis Fall [...] for breast cancer documented [facility] this encounter [facility]* Diagnosis Abnormal screening mammogram- Primary Abnormal mammogram, unspecified [facility]* Diagnosis Screening mammogram for breast cancer documented [facility] this [facility]* Diagnosis Abnormal screening mammogram Abnormal mammogram, unspecified [facility] Diagnosis Abnormal screening mammogram Abnormal mammogram, unspecified [facility]* Diagnosis Medicare annual wellness visit, subsequent- Primary Routine general medical examination at a [facility] care facility Depression, recurrent (HCC) Major depressive disorder, recurrent episode, unspecified Bronchiectasis without complication (HCC) Bronchiectasis without acute exacerbation Stage 3 chronic kidney disease, unspecified whether stage 3a or 3b CKD ([facility]) [facility] encounter [facility]* Diagnosis Subarachnoid bleed (HCC)- Primary [...] debility Debility, unspecified [facility]* Diagnosis SAH (subarachnoid hemorrhage) (HCC) Subarachnoid hemorrhage SAH (subarachnoid hemorrhage) (HCC)- Primary Subarachnoid hemorrhage [facility]* Diagnosis SAH (subarachnoid hemorrhage) (HCC)- Primary Subarachnoid hemorrhage [facility]* Diagnosis DDD (degenerative disc disease), lumbar- Primary Degeneration of lumbar or lumbosacral intervertebral disc Osteoarthritis, unspecified osteoarthritis type, unspecified site documented [facility]* Diagnosis Anxiety Anxiety state, unspecified documented [facility]* Diagnosis DDD (degenerative disc disease), lumbar Degeneration of lumbar or lumbosacral intervertebral disc Acquired hypothyroidism Unspecified hypothyroidism Gastroesophageal reflux disease with esophagitis Depressive disorder w/ seasonal affective disorder Depressive disorder, not elsewhere classified Anxiety Anxiety state, unspecified documented [facility] [place]* Diagnosis Traumatic brain injury, without loss of consciousness, subsequent encounter- Primary 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 Dizziness and giddiness Forgetfulness Other general symptoms Imbalance Abnormality of gait Post-traumatic headache, not intractable, unspecified chronicity pattern [facility] [place] [facility] Diagnosis Anxiety Anxiety state, unspecified [facility] [place] [facility] Diagnosis Personal history of traumatic brain injury- Primary Sleep apnea, unspecified type Fatigue, unspecified type Aphagia Dysphagia, unspecified Impaired functional mobility, balance, gait, and endurance [facility] [place] [facility] Diagnosis SAH (subarachnoid hemorrhage) (HCC)- Primary Subarachnoid hemorrhage [facility] [place] [facility]* Diagnosis Personal history of traumatic brain injury- Primary [facility] [place] [facility] Diagnosis Anxiety Anxiety state, unspecified documented in this encounter [facility] note* Diagnosis Essential hypertension- Primary Unspecified essential hypertension Fall from slip, trip, or stumble, initial encounter Balance problem Other symptoms involving nervous and musculoskeletal systems Asthmatic bronchitis , chronic (HCC) Chronic obstructive asthma, unspecified Acquired hypothyroidism Unspecified hypothyroidism Anxiety Anxiety state, unspecified documented in this encounter [facility] note* Diagnosis Vitamin D deficiency Unspecified vitamin D deficiency documented in this encounter [facility] note* Diagnosis Hypersomnia- Primary Hypersomnia, [...] serious comorbidity present [facility] [place] [facility] Diagnosis SAH (subarachnoid hemorrhage) (HCC)- Primary Subarachnoid hemorrhage documented in this encounter [facility] note* Diagnosis Subarachnoid hemorrhage (HCC)- Primary Subarachnoid hemorrhage [facility] [place] [facility] Diagnosis DDD (degenerative disc disease), lumbar Degeneration of lumbar or lumbosacral intervertebral disc documented in this encounter [facility] note* Diagnosis Subarachnoid hemorrhage (HCC)- Primary Subarachnoid hemorrhage [facility] [place] [facility] Diagnosis Subarachnoid hemorrhage (HCC)- Primary Subarachnoid hemorrhage [facility] [place] [facility] Diagnosis Nocturnal hypoxia- Primary Hypoxemia Chest discomfort Other chest pain Bronchiectasis without complication (HCC) Bronchiectasis without acute exacerbation documented in this encounter [facility] note* Diagnosis Odynophagia- Primary Dysphagia, unspecified Oral thrush Candidiasis of mouth [facility] [place] [facility] Diagnosis Nocturnal hypoxia- Primary Hypoxemia Sleep apnea-like behavior Class 1 obesity with body mass index (BMI) of 31.0 to 31.9 in adult, unspecified obesity type, unspecified whether serious comorbidity present Hypersomnia Hypersomnia, unspecified Insomnia, unspecified type Snoring Other dyspnea and respiratory abnormality documented in this encounter [facility] note* Diagnosis Sore throat- Primary Acute pharyngitis History of oral lesions Other and unspecified diseases of the oral soft tissues [facility] [place] [facility] Diagnosis Subarachnoid hemorrhage (HCC)- Primary Subarachnoid hemorrhage [facility] [place] [facility] Diagnosis Oxygen desaturation- Primary Hypoxemia Encounter for immunization Need for other specified prophylactic vaccination against single bacterial disease Asthmatic bronchitis , chronic (HCC) Chronic obstructive asthma, unspecified Bronchiectasis without complication (HCC) Bronchiectasis without acute exacerbation Nocturnal hypoxemia Hypoxemia Dyspnea, unspecified type [facility] [place] [facility] Diagnosis Oxygen desaturation Hypoxemia [facility] [place] [facility]* Diagnosis Pleurisy Pleurisy without mention of effusion or current tuberculosis [facility] [place] [facility]* Diagnosis Acquired hypothyroidism Unspecified hypothyroidism documented in this encounter [facility] note* Diagnosis Fatigue, unspecified type- Primary Personal history of traumatic brain injury Impaired functional mobility, balance, gait, and endurance [facility] [place] [facility] Diagnosis Excessive daytime sleepiness- Primary [facility] [place] [facility]* Diagnosis DDD (degenerative disc disease), lumbar Degeneration of lumbar or lumbosacral intervertebral disc [facility] [place] [facility]* Diagnosis Nocturnal hypoxia- Primary Hypoxemia Asthmatic bronchitis , chronic (HCC) Chronic obstructive asthma, unspecified Depression, recurrent (HCC) Major depressive disorder, recurrent episode, unspecified Stage 3 chronic kidney disease, unspecified whether stage 3a or 3b CKD (HCC) Bronchiectasis without complication (HCC) Bronchiectasis without acute exacerbation Essential hypertension Unspecified essential hypertension [facility] [place] [facility]* Diagnosis Nocturnal hypoxemia- Primary Hypoxemia Bronchiectasis without complication (HCC) Bronchiectasis without acute exacerbation Pulmonary hypertension (HCC) Other chronic pulmonary heart diseases Mild intermittent asthma without complication Unspecified asthma [facility] [place] [facility]* Diagnosis Bronchiectasis without complication (HCC)- Primary Bronchiectasis without acute exacerbation [facility] [place] [facility]* Diagnosis Gastroesophageal reflux disease with esophagitis Depressive disorder w/ seasonal affective disorder Depressive disorder, not elsewhere classified Anxiety Anxiety state, unspecified Acquired hypothyroidism Unspecified hypothyroidism [facility] [place] [facility]* Diagnosis Hip pain, left Pain in joint, pelvic region and thigh [facility] [place] [facility]* Diagnosis Hip pain, left- Primary Pain in joint, pelvic region and thigh Physical debility Debility, unspecified Oxygen desaturation Hypoxemia Bronchiectasis without complication (HCC) Bronchiectasis without acute exacerbation [facility] [place] [facility]* Diagnosis Hip pain, left- Primary Pain in joint, pelvic region and thigh [facility] [place] [facility]* Diagnosis Fatigue, unspecified type- Primary 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 lower extremity pain Physical debility Debility, unspecified documented in this encounter [facility] noteNo assessment information availableWWestern Reserve Hospital Work Phone: Evaluation note* Diagnosis Chronic obstructive pulmonary disease, unspecified COPD type (HCC)- Primary [facility] [place] [facility]* Diagnosis Trochanteric bursitis of left hip- Primary Enthesopathy of hip region Fatigue, unspecified type 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 lower extremity pain Physical debility Debility, unspecified Iron deficiency Iron deficiency anemia, unspecified Vitamin D deficiency Unspecified vitamin D deficiency Recurrent major depressive disorder, in partial remission [facility] [place] [facility]* Diagnosis Chronic bilateral low back pain without sciatica- Primary Hip pain, left Pain in joint, pelvic region and thigh Pain of erector spinae muscle [facility] [place] [facility]* Diagnosis Medicare annual wellness visit, [...] and respiratory abnormality [facility] [place] [facility]* Diagnosis Personal history of traumatic brain injury- Primary Sleep apnea, unspecified type [facility] [place] [facility]* Diagnosis Depression, recurrent- Primary Major depressive disorder, recurrent episode, unspecified Hip pain, left Pain in joint, pelvic region and thigh Dyspnea on exertion Other dyspnea and respiratory abnormality [facility] [place] [facility]* Diagnosis MARTINES (dyspnea on exertion) Other dyspnea and respiratory abnormality [facility] [place] [facility]* Diagnosis MARTINES (dyspnea on exertion) Other dyspnea and respiratory abnormality [facility] [place] [facility] Diagnosis Depression, recurrent- Primary Major depressive disorder, recurrent episode, unspecified Hip pain, left Pain in joint, pelvic region and thigh MARTINES (dyspnea on exertion) Other dyspnea and respiratory abnormality Contusion of left side of back, subsequent encounter [facility] Diagnosis [id number] adverse effect of medication, initial encounter- Primary Allergic rhinitis due to cats Allergic rhinitis due to animal (cat) (dog) hair and dander Allergic rhinitis due to dust mite Moderate persistent asthma without complication (HCC) Unspecified asthma Toxic effect from eating shellfish, accidental or unintentional, initial encounter [facility]* Diagnosis Acute cough- Primary Acute cough [facility] [place] [facility]* Diagnosis Acute cough [facility] [place] [facility]* Diagnosis Depression, recurrent Major depressive disorder, recurrent episode, unspecified [facility] Diagnosis Depression, recurrent Major depressive disorder, recurrent episode, unspecified [facility]* Diagnosis DDD (degenerative disc disease), lumbar Degeneration of lumbar or lumbosacral intervertebral disc [facility] [place] [facility] Diagnosis Bronchiectasis with acute exacerbation (HCC)- Primary Bronchiectasis with acute exacerbation Nocturnal hypoxemia Hypoxemia Mild intermittent asthma without complication (HCC) Unspecified asthma [facility] Additional Instructions Please follow-up with your PCP return for any worsening of your symptoms. Ice your face and knee a few times a day for the next few days, you can take Tylenol for pain as needed. [facility] Work Phone: Hospital Discharge instructions Additional [...] would like to be seen by an orthopedist.[facility] Work Phone: Reason for referral (narrative)* Diagnostic Procedure Only (Routine) - Authorized Specialty Diagnoses / Procedures Referred By Bhupinder barreto Referred To Contact [facility] Diagnoses Screening mammogram for breast cancer Procedures SOPHIE SCREENING SCREENING MAMMOGRAPHY BI 2-VIEW BREAST INC CAD Dia Thayer APRN.ART GILDER [address] [place] [address] [facility] [address] [place] [address] Referral ID Status Reason Start Date Expiration Date Visits Requested Visits Authorized [id number] Authorized Auto-Generat ed Referral 05/21/2023 06/19/2024 1 1 [facility] for referral (narrative)* Diagnostic Procedure Only (Routine) - Pending Review Specialty Diagnoses / Procedures Referred By Bhupinder barreto Referred To Contact [facility] Diagnoses Abnormal screening mammogram Procedures US BREAST LTD LEFT US BREAST UNI REAL TIME WITH IMAGE LIMITED Dia Thayer APRN.ART GILDER [address] [place] [address] [facility] [address] [place] [address] Referral ID Status Reason Start Date Expiration Date Visits Requested Visits Authorized [id number] Pending Review Auto-Generat ed Referral 07/08/2023 08/06/2024 1 1 * Diagnostic Procedure Only (Routine) - Pending Review Specialty Diagnoses / Procedures Referred By Bhupinder barreto Referred To Contact [facility] Diagnoses Abnormal screening mammogram Procedures SOPHIE DIAGNOSTIC LEFT DIAGNOSTIC MAMMOGRAPHY COMPUTER-AIDED DETCJ UNI Dia Thayer APRN.ART GILDER [address] [place] [address] [facility] [address] [place] [address] Referral ID Status Reason Start Date Expiration Date Visits Requested Visits Authorized [id number] Pending Review Auto-Generat ed Referral 07/08/2023 08/06/2024 1 1 [facility] for referral (narrative)* Diagnostic Procedure Only (Routine) - Closed Specialty Diagnoses / Procedures Referred By Contac t Referred To Contact [facility] Diagnoses Screening mammogram for breast cancer Procedures SOPHIE SCREENING SCREENING MAMMOGRAPHY BI 2-VIEW BREAST INC Dia Cabrera APRN.ART GILDER [address] [place] [address] [facility] [address] [place] [address] Referral ID Status Reason Start Date Expiration Date V isits Requested Visits Authorized [id number] Closed Auto-Generate d Referral 05/21/2023 06/19/2024 1 1 [facility] for referral (narrative)* Diagnostic Procedure Only (Routine) - Authorized Specialty Diagnoses / Procedures Referred By [facility] Referred To [facility] Diagnoses Hypersomnia Delayed sleep phase syndrome Insomnia, unspecified type Snoring Procedures HOME SLEEP APNEA TEST (HSAT) SLEEP STD AIRFLOW HRT RATE&O2 [place] [address] [place] [id number] [address] Referral ID Status Reason Start Date Expiration Date Visits Requested Visits Authorized [id number] Authorized Auto-Generat ed Referral 04/18/2024 04/18/2025 1 1 [facility] for referral (narrative)* Outpatient Procedure (Routine) - Authorized Specialty Diagnoses / Procedures [facility] Diagnoses Chest discomfort Nocturnal hypoxia Procedures ECHO ECHO TTHRC R-T 2D W/WOM-MODE COMPL SPEC&COLR D Dia Lopez APRN.ART GILDER [address] [place] [address] [facility] [address] [address] Referral ID Status Reason Start Date Expiration Date Visits Requested Visits Authorized [id number] Authorized Auto-Generat ed Referral 05/13/2024 05/13/2025 1 1 * Outpatient Procedure (Routine) - New Request Specialty Diagnoses / Procedures Referred By Claudineac t Referred To [facility] Diagnoses Chest discomfort Procedures ECG COMPLETE ECG ROUTINE ECG W/LEAST 12 LDS W/I&R Dia Lopez APRN.ART GILDER [address] [place] [address] [facility] [address] [place] [address] Referral ID Status Reason Start Date Expiration Date Visits Requested Visits Authorized [id number] New Request Auto-Generat ed Referral 05/13/2024 05/13/2025 1 1 [facility] for referral (narrative)No reason for referral information availableWWestern Reserve Hospital Work Phone: Reason for visit Narrative* Diagnostic Procedure Only (Routine) - Closed Specialty Diagnoses / Procedures Referred By Bhupinder t Referred To Contact [facility] Diagnoses Screening mammogram for breast cancer Procedures SOPHIE SCREENING SCREENING MAMMOGRAPHY BI 2-VIEW BREAST INC CAD Dia Thayer APRN.ART GILDER [address] [place] [address] [facility] [address] [place] [address] Referral ID Status Reason Start Date Expiration Date V isits Requested Visits Authorized [id number] Closed Auto-Generate d Referral 05/21/2023 06/19/2024 1 1 [facility] for visit Narrative* Diagnostic Procedure Only (Routine) - Authorized Specialty Diagnoses / Procedures Referred By Claudineac t Referred To Contact [facility] Diagnoses Abnormal screening mammogram Procedures US BREAST LTD LEFT US BREAST UNI REAL TIME WITH IMAGE LIMITED Dia Thayer APRN.ART GILDER [address] [place] [address] [facility] [address] [place] [address] Referral ID Status Reason Start Date Expiration Date Visits Requested Visits Authorized [id number] Authorized Auto-Generat ed Referral 07/08/2023 08/06/2024 1 1 [facility] for visit Narrative* Diagnostic Procedure Only (Routine) - Closed Specialty Diagnoses / Procedures Referred By Contac t Referred To Contact [facility] Diagnoses Abnormal screening mammogram Procedures SOPHIE DIAGNOSTIC LEFT DIAGNOSTIC MAMMOGRAPHY COMPUTER-AIDED DETCJ Dia Grace, DOG BOARDER.ART GILDER [address] [place] [address] [facility] [address] [place] [address] Referral ID Status Reason Start Date Expiration Date V isits Requested Visits Authorized [id number] Closed Auto-Generate d Referral 07/08/2023 08/06/2024 1 1 [facility] for visit Narrative* Diagnostic Procedure Only (Routine) - Closed Specialty Diagnoses / Procedures Referred By Contac t Referred To Contact XR IMAGING Diagnoses Hip pain, left Procedures XR HIP GENERAL 3V PELV/AP/LAT LEFT RADEX HIP UNILATERAL WITH PELVIS 2-3 VIEWS Ken Contreras MD [address] [place] [address] Phone: tel: fax: [place] [address] Referral ID Status Reason Start Date Expiration Date V isits Requested Visits Authorized [id number] Closed Auto-Generate d Referral 11/24/2024 12/24/2025 1 1 [facility] Advance Directives No Advanced Directives Records FoundDocuments on File Type Date Recorded 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 Advance Directive(s) 10/08/2012 8:08 PM Advance Directive(s) 09/13/2012 1:28 PM Advance Directive Response Recorded Date/ Time Advance Directives Yes May 10:59am Living Will Yes May 29, 2021 3:45pm Power of Station Detective Yes May 3:45pm Documents on File Type Date Recorded 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 Advance Directive(s) 10/08/2012 8:08 PM Advance Directive(s) 09/13/2012 1:28 PM Advance Directive Response Recorded Date/ Time Advance Directives Yes May 9:59am Living Will Yes May 29, 2021 2:45pm Power of Station Detective Yes May 2:45pm Advance Directive Response Recorded Date/ Time Name of Medical Power of Station Detective BROTHER January 09, 2023 6:50pm Advance Directives Yes May 10:59am Living Will Yes January 09, 2023 6: 50pm Power of Station Detective Yes January 09, 2023 6:50pm Advance Directive Response Recorded Date/ Time Advance Directives Yes May 10:59am Living Will Yes January 09, 2023 6: 50pm Power of Station Detective Yes January 09, 2023 6:50pm Advance Directive Response Recorded Date/ Time Name of Medical Power of Station Detective ? May 18, 2023 2:23pm Advance Directives Yes May 10:59am Living Will Yes May 18, 2023 2:23pm Power of Station Detective Yes May 2:23pm Advance Directive Response Recorded Date/ Time Name of Medical Power of Station Detective ? May 18, 2023 2:23pm Name of Medical Power of Station Detective GAMALIEL BLAND May 27, 2023 5:48pm Advance Directives Yes May 10:59am Living Will Yes May 27, 2023 5:48pm Power of Station Detective Yes May 5:48pm Advance Directive Response Recorded Date/ Time Name of Medical Power of Station Detective FARTUN NEVAREZ October 02, 2023 7:10pm Advance Directives Yes May 9:59am Living Will Yes October 02 7:10pm Power of Station Detective Yes October 02, 2023 7:10pm Latest Code [...] Will Yes August 08 4:42pm Power of Station Detective Yes August 08, 2024 4:42pm Name of Medical Power of Station Detective Benny Tiwarimaciel August 08, 2024 4:42pm Living Will No September 05, 2 024 6:11pm Power of Station Detective No September 05, 2024 6:11pm Advance Directives Yes May 10:59am Advance Directive Response Recorded Date/ Time Do you have a Healthcare Power of Station Detective? Yes February 15, 2025 4:00pm Name of Medical Power of Station Detective gamaliel bland February 15, 2025 4:00pm Advance Directives Yes May 10:59am Advance Directive Response Recorded Date/ Time Living Will Yes October 02 8:10pm Do you have a Healthcare Power of Station Detective? Yes October 02, 2023 8:10pm Do you have a Healthcare Power of Station Detective? Yes February 15, 2025 4:00pm Name of Medical Power of Station Detective gamaliel bland February 15, 2025 4:00pm Advance [...] Referred To Contact Diagnoses Recurrent UTI Jennifer Thayer APRN.ART GILDER [address] [place] [address] Referral ID Status Reason Start Date Expiration Date V isits Requested Visits Authorized [id number] Pending Review 1 1 Specialty Diagnoses / Procedures Referred By Contac t Referred To Contact CT IMAGING Diagnoses SAH (subarachnoid hemorrhage) (HCC) Procedures CT BRAIN WO IVCON CT HEAD/BRAIN W/O CONTRAST MATERIAL Dulce Vallejo, PANeha [address] [place] [address] [facility] [place] [address] Referral ID Status Reason Start Date Expiration Date V isits Requested Visits Authorized [id number] Closed Auto-Generate d Referral 10/03/2023 11/01/2024 1 1 Specialty Diagnoses / Procedures Referred By Contac t Referred To Contact Diagnoses Traumatic brain injury, without loss of consciousness, 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 60 MINUTES Tremaine Landon MD [address] [place] [id number] Referral ID Status Reason Start Date Expiration Date Visits Requested Visits Authorized [id number] Pending Review PCP Requested Referral 11/09/2023 11/08/2024 1 1 Specialty Diagnoses / Procedures Referred By Contac t Referred To Contact [facility] Diagnoses Personal history of traumatic brain injury Procedures CONSULT TO SPEECH THERAPY OFFICE/OUTPATIENT [facility] 60 MINUTES Ailyn Bonner, DOG BOARDER.ART GILDER [address] [place] [address] [facility] [address] [address] Referral ID Status Reason Start Date Expiration Date Visits Requested Visits Authorized [id number] Authorized Auto-Generat ed Referral 01/06/2024 01/05/2025 99 99 Specialty Diagnoses / Procedures Referred By Bhupinder t Referred To Contact Diagnoses Sleep apnea, unspecified type Fatigue, unspecified type Procedures CONSULT TO SLEEP MEDICINE - ADULT OFFICE/OUTPATIENT [facility] 60 MINUTES Ailyn Bonner, DOG BOARDER.ART GILDER [address] [place] [address] Referral ID Status Reason Start Date Expiration Date Visits Requested Visits Authorized [id number] Authorized PCP Requested Referral 01/06/2024 01/05/2025 1 1 Specialty Diagnoses / Procedures Referred By Bhupinder barreto Referred To Contact Ent - Otolaryngology Diagnoses Odynophagia Oral thrush Procedures CONSULT TO ENT OFFICE/OUTPATIENT [facility] 60 MINUTES Dia Lopez, DOG BOARDER.ART GILDER [address] [place] [address] Referral ID Status Reason Start Date Expiration Date Visits Requested Visits Authorized [id number] Authorized PCP Requested Referral 05/13/2024 05/13/2025 1 1 Medications Administered Section Inactive Administered Medications - up to 3 most recent administrations Medication Order MAR Action Action Date Dose Rate Site fluorescein-benoxinate 0.25-0.4 % 1 Drop (FLURESS) 1 Drop, BOTH EYES, DIRECTED, Starting on Thu07/15/22 at 1430, Until Thu07/16/22 at 022, Administer for applanation tonometry. In the event of a Fluress shortage, administer Iesha-Fluor 1 drop into both eyes as directed for applanation tonometry Given 07/15/2022 2:30 PM EST 1 Drop PHENYLephrine 2.5 % 1 Drop (AK-DILATE, CASSIDY-SYNEPHRINE) 1 Drop, BOTH EYES, DIRECTED, Starting on Thu07/15/22 at 1430, Until Thu07/16/22 at 022, Administer for dilation PROTECT FROM LIGHT Given [...] or prosecute any alcohol or drug abuse patient.[facility] the event this information is protected by the Federal Confidentiality of Alcohol and Drug Abuse Patient Records regulations: The Federal rules restrict any use of the information to criminally investigate or prosecute any alcohol or drug abuse patient.[facility] HospitalIn the event this information is protected by the Federal Confidentiality of Alcohol and Drug Abuse Patient Records regulations: The Federal rules restrict any use of the information to criminally investigate or prosecute any alcohol or drug abuse patient.[facility]In the event this information is protected by the Federal Confidentiality of Alcohol and Drug Abuse Patient Records regulations: The Federal rules restrict any use of the information to criminally investigate or prosecute any alcohol or drug abuse patient.[facility] HospitalIn the event this information is protected by the Federal Confidentiality of Alcohol and Drug Abuse Patient Records regulations: The Federal rules restrict any use of the information to criminally investigate or prosecute any alcohol or drug abuse patient.[facility] HospitalIn the event this information is protected by the Federal Confidentiality of Alcohol and Drug Abuse Patient Records regulations: The Federal rules restrict any use of the information to criminally investigate or prosecute any alcohol or drug abuse patient.[facility] HospitalIn the event this information is protected by the Federal Confidentiality of Alcohol and Drug Abuse Patient Records regulations: The Federal rules restrict any use of the information to criminally investigate or prosecute any alcohol or drug abuse patient.[facility] HospitalIn the event this information is protected by the Federal Confidentiality of Alcohol and Drug Abuse Patient Records regulations: The Federal rules restrict any use of the information to criminally investigate or prosecute any alcohol or drug abuse patient.[facility] HospitalIn the event this information is protected by the Federal Confidentiality of Alcohol and Drug Abuse Patient Records regulations: The Federal rules restrict any use of the information to criminally investigate or prosecute any alcohol or drug abuse patient.[facility] HospitalIn the event this information is protected by the Federal Confidentiality of Alcohol and Drug Abuse Patient Records regulations: The Federal rules restrict any use of the information to criminally investigate or prosecute any alcohol or drug abuse patient.[facility] HospitalIn the event this information is protected by the Federal Confidentiality of Alcohol and Drug Abuse Patient Records regulations: The Federal rules restrict any use of the information to criminally investigate or prosecute any alcohol or drug abuse patient.[facility] HospitalIn the event this information is protected by the Federal Confidentiality of Alcohol and Drug Abuse Patient Records regulations: The Federal rules restrict any use of the information to criminally investigate or prosecute any alcohol or drug abuse patient.[facility] HospitalIn the event this information is protected by the Federal Confidentiality of Alcohol and Drug Abuse Patient Records regulations: The Federal rules restrict any use of the information to criminally investigate or prosecute any alcohol or drug abuse patient.[facility] HospitalIn the event this information is protected by the Federal Confidentiality of Alcohol and Drug Abuse Patient Records regulations: The Federal rules restrict any use of the information to criminally investigate or prosecute any alcohol or drug abuse patient.[facility] HospitalIn the event this information is protected by the Federal Confidentiality of Alcohol and Drug Abuse Patient Records regulations: The Federal rules restrict any use of the information to criminally investigate or prosecute any alcohol or drug abuse patient.[facility] HospitalIn the event this information is protected by the Federal Confidentiality of Alcohol and Drug Abuse Patient Records regulations: The Federal rules restrict any use of the information to criminally investigate or prosecute any alcohol or drug abuse patient.[facility] HospitalIn the event this information is protected by the Federal Confidentiality of Alcohol and Drug Abuse Patient Records regulations: The Federal rules restrict any use of the information to criminally investigate or prosecute any alcohol or drug abuse patient.[facility] HospitalIn the event this information is protected by the Federal Confidentiality of Alcohol and Drug Abuse Patient Records regulations: The Federal rules restrict any use of the information to criminally investigate or prosecute any alcohol or drug abuse patient.[facility] HospitalIn the event this information is protected by the Federal Confidentiality of Alcohol and Drug Abuse Patient Records regulations: The Federal rules restrict any use of the information to criminally investigate or prosecute any alcohol or drug abuse patient.[facility] HospitalIn the event this information is protected by the Federal Confidentiality of Alcohol and Drug Abuse Patient Records regulations: The Federal rules restrict any use of the information to criminally investigate or prosecute any alcohol or drug abuse patient.[facility] HospitalIn the event this information is protected by the Federal Confidentiality of Alcohol and Drug Abuse Patient Records regulations: The Federal rules restrict any use of the information to criminally investigate or prosecute any alcohol or drug abuse patient.[facility] HospitalIn the event this information is protected by the Federal Confidentiality of Alcohol and Drug Abuse Patient Records regulations: The Federal rules restrict any use of the information to criminally investigate or prosecute any alcohol or drug abuse patient.[facility] HospitalIn the event this information is protected by the Federal Confidentiality of Alcohol and Drug Abuse Patient Records regulations: The Federal rules restrict any use of the information to criminally investigate or prosecute any alcohol or drug abuse patient.[facility] HospitalIn the event this information is protected by the Federal Confidentiality of Alcohol and Drug Abuse Patient Records regulations: The Federal rules restrict any use of the information to criminally investigate or prosecute any alcohol or drug abuse patient.[facility] HospitalIn the event this information is protected by the Federal Confidentiality of Alcohol and Drug Abuse Patient Records regulations: The Federal rules restrict any use of the information to criminally investigate or prosecute any alcohol or drug abuse patient.[facility] HospitalIn the event this information is protected by the Federal Confidentiality of Alcohol and Drug Abuse Patient Records regulations: The Federal rules restrict any use of the information to criminally investigate or prosecute any alcohol or drug abuse patient.[facility] HospitalIn the event this information is protected by the Federal Confidentiality of Alcohol and Drug Abuse Patient Records regulations: The Federal rules restrict any use of the information to criminally investigate or prosecute any alcohol or drug abuse patient.[facility] HospitalIn the event this information is protected by the Federal Confidentiality of Alcohol and Drug Abuse Patient Records regulations: The Federal rules restrict any use of the information to criminally investigate or prosecute any alcohol or drug abuse patient.[facility] HospitalIn the event this information is protected by the Federal Confidentiality of Alcohol and Drug Abuse Patient Records regulations: The Federal rules restrict any use of the information to criminally investigate or prosecute any alcohol or drug abuse patient.[facility] HospitalIn the event this information is protected by the Federal Confidentiality of Alcohol and Drug Abuse Patient Records regulations: The Federal rules restrict any use of the information to criminally investigate or prosecute any alcohol or drug abuse patient.[facility] HospitalIn the event this information is protected by the Federal Confidentiality of Alcohol and Drug Abuse Patient Records regulations: The Federal rules restrict any use of the information to criminally investigate or prosecute any alcohol or drug abuse patient.[facility] HospitalIn the event this information is protected by the Federal Confidentiality of Alcohol and Drug Abuse Patient Records regulations: The Federal rules restrict any use of the information to criminally investigate or prosecute any alcohol or drug abuse patient.[facility] HospitalIn the event this information is protected by the Federal Confidentiality of Alcohol and Drug Abuse Patient Records regulations: The Federal rules restrict any use of the information to criminally investigate or prosecute any alcohol or drug abuse patient.[facility] HospitalIn the event this information is protected by the Federal Confidentiality of Alcohol and Drug Abuse Patient Records regulations: The Federal rules restrict any use of the information to criminally investigate or prosecute any alcohol or drug abuse patient.[facility] HospitalIn the event this information is protected by the Federal Confidentiality of Alcohol and Drug Abuse Patient Records regulations: The Federal rules restrict any use of the information to criminally investigate or prosecute any alcohol or drug abuse patient.[facility] HospitalIn the event this information is protected by the Federal Confidentiality of Alcohol and Drug Abuse Patient Records regulations: The Federal rules restrict any use of the information to criminally investigate or prosecute any alcohol or drug abuse patient.[facility] HospitalIn the event this information is protected by the Federal Confidentiality of Alcohol and Drug Abuse Patient Records regulations: The Federal rules restrict any use of the information to criminally investigate or prosecute any alcohol or drug abuse patient.[facility] HospitalIn the event this information is protected by the Federal Confidentiality of Alcohol and Drug Abuse Patient Records regulations: The Federal rules restrict any use of the information to criminally investigate or prosecute any alcohol or drug abuse patient.[facility] HospitalIn the event this information is protected by the Federal Confidentiality of Alcohol and Drug Abuse Patient Records regulations: The Federal rules restrict any use of the information to criminally investigate or prosecute any alcohol or drug abuse patient.[facility] HospitalIn the event this information is protected by the Federal Confidentiality of Alcohol and Drug Abuse Patient Records regulations: The Federal rules restrict any use of the information to criminally investigate or prosecute any alcohol or drug abuse patient.[facility] HospitalIn the event this information is protected by the Federal Confidentiality of Alcohol and Drug Abuse Patient Records regulations: The Federal rules restrict any use of the information to criminally investigate or prosecute any alcohol or drug abuse patient.[facility]In the event this information is protected by the Federal Confidentiality of Alcohol and Drug Abuse Patient Records regulations: The Federal rules restrict any use of the information to criminally investigate or prosecute any alcohol or drug abuse patient.[facility] HospitalIn the event this information is protected by the Federal Confidentiality of Alcohol and Drug Abuse Patient Records regulations: The Federal rules restrict any use of the information to criminally investigate or prosecute any alcohol or drug abuse patient.[facility] HospitalIn the event this information is protected by the Federal Confidentiality of Alcohol and Drug Abuse Patient Records regulations: The Federal rules restrict any use of the information to criminally investigate or prosecute any alcohol or drug abuse patient.[facility] HospitalIn the event this information is protected by the Federal Confidentiality of Alcohol and Drug Abuse Patient Records regulations: The Federal rules restrict any use of the information to criminally investigate or prosecute any alcohol or drug abuse patient.[facility] HospitalIn the event this information is protected by the Federal Confidentiality of Alcohol and Drug Abuse Patient Records regulations: The Federal rules restrict any use of the information to criminally investigate or prosecute any alcohol or drug abuse patient.[facility] HospitalIn the event this information is protected by the Federal Confidentiality of Alcohol and Drug Abuse Patient Records regulations: The Federal rules restrict any use of the information to criminally investigate or prosecute any alcohol or drug abuse patient.[facility] HospitalIn the event this information is protected by the Federal Confidentiality of Alcohol and Drug Abuse Patient Records regulations: The Federal rules restrict any use of the information to criminally investigate or prosecute any alcohol or drug abuse patient.[facility] HospitalIn the event this information is protected by the Federal Confidentiality of Alcohol and Drug Abuse Patient Records regulations: The Federal rules restrict any use of the information to criminally investigate or prosecute any alcohol or drug abuse patient.[facility] HospitalIn the event this information is protected by the Federal Confidentiality of Alcohol and Drug Abuse Patient Records regulations: The Federal rules restrict any use of the information to criminally investigate or prosecute any alcohol or drug abuse patient.[facility] HospitalIn the event this information is protected by the Federal Confidentiality of Alcohol and Drug Abuse Patient Records regulations: The Federal rules restrict any use of the information to criminally investigate or prosecute any alcohol or drug abuse patient.[facility] HospitalIn the event this information is protected by the Federal Confidentiality of Alcohol and Drug Abuse Patient Records regulations: The Federal rules restrict any use of the information to criminally investigate or prosecute any alcohol or drug abuse patient.[facility] HospitalIn the event this information is protected by the Federal Confidentiality of Alcohol and Drug Abuse Patient Records regulations: The Federal rules restrict any use of the information to criminally investigate or prosecute any alcohol or drug abuse patient.[facility] HospitalIn the event this information is protected by the Federal Confidentiality of Alcohol and Drug Abuse Patient Records regulations: The Federal rules restrict any use of the information to criminally investigate or prosecute any alcohol or drug abuse patient.[facility] HospitalIn the event this information is protected by the Federal Confidentiality of Alcohol and Drug Abuse Patient Records regulations: The Federal rules restrict any use of the information to criminally investigate or prosecute any alcohol or drug abuse patient.[facility] HospitalIn the event this information is protected by the Federal Confidentiality of Alcohol and Drug Abuse Patient Records regulations: The Federal rules restrict any use of the information to criminally investigate or prosecute any alcohol or drug abuse patient.[facility] HospitalIn the event this information is protected by the Federal Confidentiality of Alcohol and Drug Abuse Patient Records regulations: The Federal rules restrict any use of the information to criminally investigate or prosecute any alcohol or drug abuse patient.[facility] HospitalIn the event this information is protected by the Federal Confidentiality of Alcohol and Drug Abuse Patient Records regulations: The Federal rules restrict any use of the information to criminally investigate or prosecute any alcohol or drug abuse patient.[facility] HospitalIn the event this information is protected by the Federal Confidentiality of Alcohol and Drug Abuse Patient Records regulations: The Federal rules restrict any use of the information to criminally investigate or prosecute any alcohol or drug abuse patient.[facility] HospitalIn the event this information is protected by the Federal Confidentiality of Alcohol and Drug Abuse Patient Records regulations: The Federal rules restrict any use of the information to criminally investigate or prosecute any alcohol or drug abuse patient.[facility] HospitalIn the event this information is protected by the Federal Confidentiality of Alcohol and Drug Abuse Patient Records regulations: The Federal rules restrict any use of the information to criminally investigate or prosecute any alcohol or drug abuse patient.[facility] HospitalIn the event this information is protected by the Federal Confidentiality of Alcohol and Drug Abuse Patient Records regulations: The Federal rules restrict any use of the information to criminally investigate or prosecute any alcohol or drug abuse patient.[facility] HospitalIn the event this information is protected by the Federal Confidentiality of Alcohol and Drug Abuse Patient Records regulations: The Federal rules restrict any use of the information to criminally investigate or prosecute any alcohol or drug abuse patient.[facility] HospitalIn the event this information is protected by the Federal Confidentiality of Alcohol and Drug Abuse Patient Records regulations: The Federal rules restrict any use of the information to criminally investigate or prosecute any alcohol or drug abuse patient.[facility] HospitalIn the event this information is protected by the Federal Confidentiality of Alcohol and Drug Abuse Patient Records regulations: The Federal rules restrict any use of the information to criminally investigate or prosecute any alcohol or drug abuse patient.[facility] HospitalIn the event this information is protected by the Federal Confidentiality of Alcohol and Drug Abuse Patient Records regulations: The Federal rules restrict any use of the information to criminally investigate or prosecute any alcohol or drug abuse patient.[facility] HospitalIn the event this information is protected by the Federal Confidentiality of Alcohol and Drug Abuse Patient Records regulations: The Federal rules restrict any use of the information to criminally investigate or prosecute any alcohol or drug abuse patient.[facility] HospitalIn the event this information is protected by the Federal Confidentiality of Alcohol and Drug Abuse Patient Records regulations: The Federal rules restrict any use of the information to criminally investigate or prosecute any alcohol or drug abuse patient.[facility] HospitalIn the event this information is protected by the Federal Confidentiality of Alcohol and Drug Abuse Patient Records regulations: The Federal rules restrict any use of the information to criminally investigate or prosecute any alcohol or drug abuse patient.[facility] HospitalIn the event this information is protected by the Federal Confidentiality of Alcohol and Drug Abuse Patient Records regulations: The Federal rules restrict any use of the information to criminally investigate or prosecute any alcohol or drug abuse patient.[facility] HospitalIn the event this information is protected by the Federal Confidentiality of Alcohol and Drug Abuse Patient Records regulations: The Federal rules restrict any use of the information to criminally investigate or prosecute any alcohol or drug abuse patient.[facility] HospitalIn the event this information is protected by the Federal Confidentiality of Alcohol and Drug Abuse Patient Records regulations: The Federal rules restrict any use of the information to criminally investigate or prosecute any alcohol or drug abuse patient.[facility] HospitalIn the event this information is protected by the Federal Confidentiality of Alcohol and Drug Abuse Patient Records regulations: The Federal rules restrict any use of the information to criminally investigate or prosecute any alcohol or drug abuse patient.[facility] HospitalIn the event this information is protected by the Federal Confidentiality of Alcohol and Drug Abuse Patient Records regulations: The Federal rules restrict any use of the information to criminally investigate or prosecute any alcohol or drug abuse patient.[facility] HospitalIn the event this information is protected by the Federal Confidentiality of Alcohol and Drug Abuse Patient Records regulations: The Federal rules restrict any use of the information to criminally investigate or prosecute any alcohol or drug abuse patient.[facility] HospitalIn the event this information is protected by the Federal Confidentiality of Alcohol and Drug Abuse Patient Records regulations: The Federal rules restrict any use of the information to criminally investigate or prosecute any alcohol or drug abuse patient.[facility] HospitalIn the event this information is protected by the Federal Confidentiality of Alcohol and Drug Abuse Patient Records regulations: The Federal rules restrict any use of the information to criminally investigate or prosecute any alcohol or drug abuse patient.[facility] HospitalIn the event this information is protected by the Federal Confidentiality of Alcohol and Drug Abuse Patient Records regulations: The Federal rules restrict any use of the information to criminally investigate or prosecute any alcohol or drug abuse patient.[facility] HospitalIn the event this information is protected by the Federal Confidentiality of Alcohol and Drug Abuse Patient Records regulations: The Federal rules restrict any use of the information to criminally investigate or prosecute any alcohol or drug abuse patient.[facility] HospitalIn the event this information is protected by the Federal Confidentiality of Alcohol and Drug Abuse Patient Records regulations: The Federal rules restrict any use of the information to criminally investigate or prosecute any alcohol or drug abuse patient.[facility] HospitalIn the event this information is protected by the Federal Confidentiality of Alcohol and Drug Abuse Patient Records regulations: The Federal rules restrict any use of the information to criminally investigate or prosecute any alcohol or drug abuse patient.[facility] HospitalIn the event this information is protected by the Federal Confidentiality of Alcohol and Drug Abuse Patient Records regulations: The Federal rules restrict any use of the information to criminally investigate or prosecute any alcohol or drug abuse patient.[facility] HospitalIn the event this information is protected by the Federal Confidentiality of Alcohol and Drug Abuse Patient Records regulations: The Federal rules restrict any use of the information to criminally investigate or prosecute any alcohol or drug abuse patient.[facility] HospitalIn the event this information is protected by the Federal Confidentiality of Alcohol and Drug Abuse Patient Records regulations: The Federal rules restrict any use of the information to criminally investigate or prosecute any alcohol or drug abuse patient.[facility] HospitalIn the event this information is protected by the Federal Confidentiality of Alcohol and Drug Abuse Patient Records regulations: The Federal rules restrict any use of the information to criminally investigate or prosecute any alcohol or drug abuse patient.[facility] HospitalIn the event this information is protected by the Federal Confidentiality of Alcohol and Drug Abuse Patient Records regulations: The Federal rules restrict any use of the information to criminally investigate or prosecute any alcohol or drug abuse patient.[facility]In the event this information is protected by the Federal Confidentiality of Alcohol and Drug Abuse Patient Records regulations: The Federal rules restrict any use of the information to criminally investigate or prosecute any alcohol or drug abuse patient.[facility] HospitalIn the event this information is protected by the Federal Confidentiality of Alcohol and Drug Abuse Patient Records regulations: The Federal rules restrict any use of the information to criminally investigate or prosecute any alcohol or drug abuse patient.[facility] HospitalIn the event this information is protected by the Federal Confidentiality of Alcohol and Drug Abuse Patient Records regulations: The Federal rules restrict any use of the information to criminally investigate or prosecute any alcohol or drug abuse patient.[facility] HospitalIn the event this information is protected by the Federal Confidentiality of Alcohol and Drug Abuse Patient Records regulations: The Federal rules restrict any use of the information to criminally investigate or prosecute any alcohol or drug abuse patient.[facility] HospitalIn the event this information is protected by the Federal Confidentiality of Alcohol and Drug Abuse Patient Records regulations: The Federal rules restrict any use of the information to criminally investigate or prosecute any alcohol or drug abuse patient.[facility]In the event this information is protected by the Federal Confidentiality of Alcohol and Drug Abuse Patient Records regulations: The Federal rules restrict any use of the information to criminally investigate or prosecute any alcohol or drug abuse patient.[facility] HospitalIn the event this information is protected by the Federal Confidentiality of Alcohol and Drug Abuse Patient Records regulations: The Federal rules restrict any use of the information to criminally investigate or prosecute any alcohol or drug abuse patient.[facility] HospitalIn the event this information is protected by the Federal Confidentiality of Alcohol and Drug Abuse Patient Records regulations: The Federal rules restrict any use of the information to criminally investigate or prosecute any alcohol or drug abuse patient.[facility] HospitalIn the event this information is protected by the Federal Confidentiality of Alcohol and Drug Abuse Patient Records regulations: The Federal rules restrict any use of the information to criminally investigate or prosecute any alcohol or drug abuse patient.[facility] HospitalIn the event this information is protected by the Federal Confidentiality of Alcohol and Drug Abuse Patient Records regulations: The Federal rules restrict any use of the information to criminally investigate or prosecute any alcohol or drug abuse patient.[facility] HospitalIn the event this information is protected by the Federal Confidentiality of Alcohol and Drug Abuse Patient Records regulations: The Federal rules restrict any use of the information to criminally investigate or prosecute any alcohol or drug abuse patient.[facility] HospitalIn the event this information is protected by the Federal Confidentiality of Alcohol and Drug Abuse Patient Records regulations: The Federal rules restrict any use of the information to criminally investigate or prosecute any alcohol or drug abuse patient.[facility] HospitalIn the event this information is protected by the Federal Confidentiality of Alcohol and Drug Abuse Patient Records regulations: The Federal rules restrict any use of the information to criminally investigate or prosecute any alcohol or drug abuse patient.[facility] HospitalIn the event this information is protected by the Federal Confidentiality of Alcohol and Drug Abuse Patient Records regulations: The Federal rules restrict any use of the information to criminally investigate or prosecute any alcohol or drug abuse patient.[facility] HospitalIn the event this information is protected by the Federal Confidentiality of Alcohol and Drug Abuse Patient Records regulations: The Federal rules restrict any use of the information to criminally investigate or prosecute any alcohol or drug abuse patient.[facility] HospitalIn the event this information is protected by the Federal Confidentiality of Alcohol and Drug Abuse Patient Records regulations: The Federal rules restrict any use of the information to criminally investigate or prosecute any alcohol or drug abuse patient.[facility] HospitalIn the event this information is protected by the Federal Confidentiality of Alcohol and Drug Abuse Patient Records regulations: The Federal rules restrict any use of the information to criminally investigate or prosecute any alcohol or drug abuse patient.[facility] HospitalIn the event this information is protected by the Federal Confidentiality of Alcohol and Drug Abuse Patient Records regulations: The Federal rules restrict any use of the information to criminally investigate or prosecute any alcohol or drug abuse patient.[facility] HospitalIn the event this information is protected by the Federal Confidentiality of Alcohol and Drug Abuse Patient Records regulations: The Federal rules restrict any use of the information to criminally investigate or prosecute any alcohol or drug abuse patient.[facility] HospitalIn the event this information is protected by the Federal Confidentiality of Alcohol and Drug Abuse Patient Records regulations: The Federal rules restrict any use of the information to criminally investigate or prosecute any alcohol or drug abuse patient.[facility] HospitalIn the event this information is protected by the Federal Confidentiality of Alcohol and Drug Abuse Patient Records regulations: The Federal rules restrict any use of the information to criminally investigate or prosecute any alcohol or drug abuse patient.[facility] HospitalIn the event this information is protected by the Federal Confidentiality of Alcohol and Drug Abuse Patient Records regulations: The Federal rules restrict any use of the information to criminally investigate or prosecute any alcohol or drug abuse patient.[facility] HospitalIn the event this information is protected by the Federal Confidentiality of Alcohol and Drug Abuse Patient Records regulations: The Federal rules restrict any use of the information to criminally investigate or prosecute any alcohol or drug abuse patient.[facility] HospitalIn the event this information is protected by the Federal Confidentiality of Alcohol and Drug Abuse Patient Records regulations: The Federal rules restrict any use of the information to criminally investigate or prosecute any alcohol or drug abuse patient.[facility] HospitalIn the event this information is protected by the Federal Confidentiality of Alcohol and Drug Abuse Patient Records regulations: The Federal rules restrict any use of the information to criminally investigate or prosecute any alcohol or drug abuse patient.[facility] HospitalIn the event this information is protected by the Federal Confidentiality of Alcohol and Drug Abuse Patient Records regulations: The Federal rules restrict any use of the information to criminally investigate or prosecute any alcohol or drug abuse patient.[facility] HospitalIn the event this information is protected by the Federal Confidentiality of Alcohol and Drug Abuse Patient Records regulations: The Federal rules restrict any use of the information to criminally investigate or prosecute any alcohol or drug abuse patient.[facility] HospitalIn the event this information is protected by the Federal Confidentiality of Alcohol and Drug Abuse Patient Records regulations: The Federal rules restrict any use of the information to criminally investigate or prosecute any alcohol or drug abuse patient.[facility] HospitalIn the event this information is protected by the Federal Confidentiality of Alcohol and Drug Abuse Patient Records regulations: The Federal rules restrict any use of the information to criminally investigate or prosecute any alcohol or drug abuse patient.[facility] HospitalIn the event this information is protected by the Federal Confidentiality of Alcohol and Drug Abuse Patient Records regulations: The Federal rules restrict any use of the information to criminally investigate or prosecute any alcohol or drug abuse patient.[facility] HospitalIn the event this information is protected by the Federal Confidentiality of Alcohol and Drug Abuse Patient Records regulations: The Federal rules restrict any use of the information to criminally investigate or prosecute any alcohol or drug abuse patient.[facility] HospitalIn the event this information is protected by the Federal Confidentiality of Alcohol and Drug Abuse Patient Records regulations: The Federal rules restrict any use of the information to criminally investigate or prosecute any alcohol or drug abuse patient.[facility] HospitalIn the event this information is protected by the Federal Confidentiality of Alcohol and Drug Abuse Patient Records regulations: The Federal rules restrict any use of the information to criminally investigate or prosecute any alcohol or drug abuse patient.[facility] HospitalIn the event this information is protected by the Federal Confidentiality of Alcohol and Drug Abuse Patient Records regulations: The Federal rules restrict any use of the information to criminally investigate or prosecute any alcohol or drug abuse patient.[facility] HospitalIn the event this information is protected by the Federal Confidentiality of Alcohol and Drug Abuse Patient Records regulations: The Federal rules restrict any use of the information to criminally investigate or prosecute any alcohol or drug abuse patient.[facility] HospitalIn the event this information is protected by the Federal Confidentiality of Alcohol and Drug Abuse Patient Records regulations: The Federal rules restrict any use of the information to criminally investigate or prosecute any alcohol or drug abuse patient.[facility] HospitalIn the event this information is protected by the Federal Confidentiality of Alcohol and Drug Abuse Patient Records regulations: The Federal rules restrict any use of the information to criminally investigate or prosecute any alcohol or drug abuse patient.[facility] HospitalIn the event this information is protected by the Federal Confidentiality of Alcohol and Drug Abuse Patient Records regulations: The Federal rules restrict any use of the information to criminally investigate or prosecute any alcohol or drug abuse patient.[facility] HospitalIn the event this information is protected by the Federal Confidentiality of Alcohol and Drug Abuse Patient Records regulations: The Federal rules restrict any use of the information to criminally investigate or prosecute any alcohol or drug abuse patient.[facility] HospitalIn the event this information is protected by the Federal Confidentiality of Alcohol and Drug Abuse Patient Records regulations: The Federal rules restrict any use of the information to criminally investigate or prosecute any alcohol or drug abuse patient.[facility] HospitalIn the event this information is protected by the Federal Confidentiality of Alcohol and Drug Abuse Patient Records regulations: The Federal rules restrict any use of the information to criminally investigate or prosecute any alcohol or drug abuse patient.[facility] Reason for Visit (unrecogniz ed section and content) Reason Comments Physical Therapy Specialty Diagnoses / Procedures Referred By Contac t Referred To Contact [facility] Diagnoses Subarachnoid hemorrhage (HCC) Procedures CONSULT TO PHYSICAL THERAPY PHYSICAL THERAPY EVALUATION HIGH COMPLEX 45 MINS Iris Deleon PA-C [address] [place] [address] [facility] [address] [place] [address] Referral ID Status Reason Start Date Expiration Date Visits Requested Visits Authorized [id number] Authorized PCP Requested Referral Auto-Generate d Referral [...] IVCON CT HEAD/BRAIN W/O CONTRAST MATERIAL Dulce Vallejo PA-C [address] [place] [address] [place] [address] Referral ID Status Reason Start Date Expiration Date V isits Requested Visits Authorized [id number] Closed Auto-Generate d Referral 10/03/2023 11/01/2024 1 [...] NEW HIGH MDM 60 MINUTES Ailyn Bonner, DOG BOARDER.ART GILDER [address] [place] [address] [facility] [address] [place] [address] Referral ID Status Reason Start Date Expiration Date Visits Requested Visits Authorized [id number] Authorized Auto-Generat ed Referral 01/06/2024 01/05/2025 99 [...] OFFICE/OUTPATIENT NEW HIGH MDM 60 MINUTES Ailyn Bonner M, DOG BOARDER.ART GILDER [address] [place] [address] Referral ID Status Reason Start Date Expiration Date V isits Requested Visits Authorized [id number] Closed PCP Requested Referral 01/06/2024 01/05/2025 1 [...] OFFICE/OUTPATIENT NEW HIGH MDM 60 MINUTES Dia Lopez M, DOG BOARDER.ART GILDER [address] [place] [address] Referral ID Status Reason Start Date Expiration Date V isits Requested Visits Authorized [id number] Closed PCP Requested Referral 05/13/2024 05/13/2025 1 1 Reason Comments Orders Reason Comments Follow Up From PT Reason Comments Patient Update Reason Comments faxed orders to [facility]- polysomnogram Reason Onset Date Comments Refill [...] Physical debility Procedures CONSULT TO GERIATRICS OFFICE/OUTPATIENT NEW HIGH [facility] 60 MINUTES Ken Contreras MD [address] [place] [address] Phone: tel: fax: Referral ID Status Reason Start Date Expiration Date V isits Requested Visits Authorized [id number] Closed PCP Requested Referral 12/01/2024 12/01/2025 1 1 Reason Comments New Pain Specialty Diagnoses / Procedures Referred By Contac t Referred To Contact Orthopedics Diagnoses Hip pain, left Procedures CONSULT TO ORTHOPAEDICS OFFICE/OUTPATIENT NEW HIGH [facility] 60 MINUTES Ken Contreras MD [address] [place] [address] Phone: tel: fax: Referral ID Status Reason Start Date Expiration Date V isits Requested Visits Authorized [id number] Closed PCP Requested Referral 11/29/2024 11/29/2025 1 1 Reason Comments Fax Request Reason Comments Depression Hip Pain Shortness of Breath Reason Comments Request for records Reason Comments Spirometry Specialty Diagnoses / Procedures Referred By Contac t Referred [facility] Diagnoses MARTINES (dyspnea on exertion) Procedures SPIROMETRY - BASELINE AND POST DILATOR BRNCDILAT RSPSE SPMTRY PRE&POST-BRNCDILAT ADMN Cami Mars MD [address] [place] [address] Phone: tel: fax: [facility] [address] [place] [address] Referral ID Status Reason Start Date Expiration Date V isits Requested Visits Authorized [id number] Closed Auto-Generate d Referral 01/25/2025 02/24/2026 1 1 Specialty Diagnoses / Procedures Referred By Contac t Referred To [facility] Diagnoses MARTINES (dyspnea on exertion) Procedures LUNG VOLUMES Cami Mars MD [address] [place] [address] Phone: tel: fax: [facility] [address] [place] [address] Referral ID Status Reason Start Date Expiration Date V isits Requested Visits Authorized [id number] Closed Auto-Generate d Referral 01/25/2025 02/24/2026 1 1 Reason Comments [facility] Scheduling dept requesting records Reason Comments [...] Care Teams (unrecognized sec tion and content) Department Helper Relationship Specialty Start Date End Date Ken Contreras MD [address] [place], [place] [id number] PCP - General Internal Medicine 05/01/17 Marquise Javed [address] [phone] Cardiology 05/01/21 Department Helper Relationship Specialty Start Date End Date Ken Contreras MD [address] [place], [place] [id number] PCP - General Internal Medicine 05/01/17 Marquise Javed [address] [place] [phone] Cardiology 05/01/21 Department Helper Relationship Specialty Start Date End Date Ken Contreras MD [address] [place] [address] PCP - General Internal Medicine 05/01/17 Marquise Javed [address] [place] [phone] Cardiology 05/01/21 Department Helper Relationship Specialty Start Date End Date Ken Contreras MD [address] [facility] [place] [address] PCP - General Internal Medicine 05/01/[address]aved [address] [place] [address] Cardiology 05/01/21 Department Helper Relationship Specialty Start Date End Date Ken Contreras MD [address] [facility] [place] [address] PCP - General Internal Medicine 05/01/17 Marquise Javed [address] [place] [address] Cardiology 05/01/21 Department Helper Relationship Specialty Start Date End Date Ken Contreras MD [address] [facility] [place] [address] PCP - General Internal Medicine 05/01/17 Marquise Javed [address] [place] [address] Cardiology 05/01/21 Department Helper Relationship Specialty Start Date End Date Ken Contreras MD [address] [place] [address] PCP - General Internal Medicine 05/01/17 [address]quise Javed [address] [place] [address] Cardiology 05/01/21 Department Helper Relationship Specialty Start Date End Date Ken Contreras MD [address] [facility] [place] [address] PCP - General Internal Medicine 05/01/17 Marquise Javed [address] [place] [address] Cardiology 05/01/21 Department Helper Relationship Specialty Start Date End Date Ken Contreras MD [address] [facility] [place] [address] PCP - General Internal Medicine 05/01/17 Marquise Javed [address] [place] [address] Cardiology 05/01/21 Department Helper Relationship Specialty Start Date End Date Ken Contreras MD [address] [facility] [place] [address] PCP - General Internal Medicine 05/01/17 Marquise Javed [address] [place] [address] Cardiology 05/01/21 Department Helper Relationship Specialty Start Date End Date Ken Contreras MD [address] [facility] [place] [address] PCP - General Internal Medicine 05/01/17 Marquise Javed [address] [place] [address] Cardiology 05/01/21 Department Helper Relationship Specialty Start Date End Date Ken Contreras MD [address] [place] [address] PCP - General Internal Medicine 05/01/17 Marquise Javed [address] [place] [address] Cardiology 05/01/21 Department Helper Relationship Specialty Start Date End Date Ken Contreras MD [address] [facility] [place] [address] PCP - General Internal Medicine 05/01/17 Marquise Javed [address] [place] [address] Cardiology 05/01/21 Department Helper Relationship Specialty Start Date End Date Ken Contreras MD [address] [facility] [place] [address] PCP - General Internal Medicine 05/01/17 Marquise Javed [address] [place] [address] Cardiology 05/01/21 Department Helper Relationship Specialty Start Date End Date Ken Contreras MD [address] [facility] [place] [address] PCP - General Internal Medicine 05/01/17 Marquise Javed [address] [place] [address] Cardiology 05/01/21 Team Status: Active Member Role [...] Dr. Arturo Greer MD Emergency Provider Active Department Helper Relationship Specialty Start Date End Date Ken Contreras MD [address] [facility] [place] [address] PCP - General Internal Medicine 05/01/17 Marquise Javed [address] [place] [address] Cardiology 05/01/21 Department Helper Relationship Specialty Start Date End Date Ken Contreras MD [address] [place] [address] PCP - General Internal Medicine 05/01/17 Marquise Javed [address] [phone] Cardiology 05/01/21 Team Status: Inactive Member Role Status Dates Dr. Ken Contreras MD Primary Care Provider, Refer ring Provider Active Dr. Jaswant Miller DO Attending Provider Active Team Status: Inactive Member Role Status Dates Dr. Ken Contreras MD Primary Care Provider, Refer ring Provider Active Amanda Daugherty STRETCHER OPERATOR, STRETCHER OPERATOR-C Attending Provider Active Team Status: Inactive Member Role Status Dates Dr. Ken Contreras MD Primary Care Provider Active Amanda Daugherty STRETCHER OPERATOR, STRETCHER OPERATOR-C Attending Provider, Referring P roziggyder Active Team Status: Inactive Member Role Status Dates Dr. Ken Contreras MD Primary Care Provider Active Dr. Janett Her MD Emergency Provider Active Department Helper Relationship Specialty Start Date End Date Ken Contreras MD [address] [place] [address] PCP - General Internal Medicine 05/01/17 Marquise Javed [address] [phone] Cardiology 05/01/21 Team Status: Inactive Member Role Status Dates Dr. Ken Contreras MD Primary Care Provider Active Dr. Janett Her MD Attending Provider, Emergency Provider Active Team Status: Inactive Member Role Status Dates Dr. Ken Contreras MD Primary Care Provider Active Dr. Teri Lozano DO Emergency Provider Active Department Helper Relationship Specialty Start Date End Date Ken Contreras MD [address] [facility] [place] [address] PCP - General Internal Medicine 05/01/17 Marquise Javed [address] [place] [address] Cardiology 05/01/21 Department Helper Relationship Specialty Start Date End Date Ken Contreras MD [address] [facility] [place] [address] PCP - General Internal Medicine 05/01/17 Marquise Javed [address] [place] [address] Cardiology 05/01/21 Department Helper Relationship Specialty Start Date End Date Ken Contreras MD [address] [facility] [place] [address] PCP - General Internal Medicine 05/01/17 Marquise Javed MD [address] [place] [address], [place] [address] Cardiology 05/01/21 Department Helper Relationship Specialty Start Date End Date Ken Contreras MD [address] [facility] [place] [address] PCP - General Internal Medicine 05/01/17 Marquise Javed MD [address] [place] [address] Cardiology 05/01/21 Team Status: Inactive Member Role Status Dates Dr. Ken Contreras MD Primary Care Provider, Refer ring Provider Active Taylor Yazmin Attending Provider Active Department Helper Relationship Specialty Start Date End Date Ken Contreras MD [address] [place], [place] [address] PCP - General Internal Medicine 05/01/17 Marquise Javed MD [address] [place] [address] Cardiology 05/01/21 Department Helper Relationship Specialty Start Date End Date Ken Contreras MD [address] [place] [address] PCP - General Internal Medicine 05/01/17 [address] [facility] [address] [address] [address] Cardiology 05/01/21 Maddie Raphael, DIONTE [address] [place] [address] [employer] Accountant 10/06/23 Department Helper Relationship Specialty Start Date End Date Ken Contreras MD [address] [place] [address] PCP - General Internal Medicine 05/01/17 Marquise Javed MD [address] [place] [address] Cardiology 05/01/21 Maddie Raphael, DIONTE [address] [place] [address] [employer] Accountant 10/06/23 Department Helper Relationship Specialty Start Date End Date Ken Contreras MD [address] [place] [address] PCP - General Internal Medicine 05/01/17 Marquise Javed MD [address] [place] [address] Cardiology 05/01/21 Maddie Raphael, RN [address] [place] [address] [employer] Accountant 10/06/23 Department Helper Relationship Specialty Start Date End Date Ken Contreras MD [address] [facility] [place] [address] PCP - General Internal Medicine 05/01/17 Marquise Javed MD [address] [place] [address] Cardiology 05/01/21 Maddie Raphael, DIONTE [address] [place] [address] [employer] Accountant 10/06/23 Department Helper Relationship Specialty Start Date End Date Ken Contreras MD [address] [facility] [place] [address] PCP - General Internal Medicine 05/01/17 Marquise Javed MD [address] [place] [address] Cardiology 05/01/21 Maddie Raphael, RN [address] [place] [address] [employer] Accountant 10/06/23 11/04/23 Department Helper Relationship Specialty Start Date End Date Ken Contreras MD [address] [facility] [place] [address] PCP - General Internal Medicine 05/01/17 Marquise Javed MD [address] [address] Cardiology 05/01/21 Maddie Raphael, RN [address] [place] [address] [employer] Accountant 10/06/23 11/04/23 Department Helper Relationship Specialty Start Date End Date Ken Contreras MD [address] [place] [address] PCP - General Internal Medicine 05/01/17 Marquise J[address] [facility] [address] [address] Cardiology 05/01/21 Department Helper Relationship Specialty Start Date End Date Ken Contreras MD [address] [place] [address] PCP - General Internal Medicine 05/01/17 Marquise Javed MD [address] [address] Cardiology 05/01/21 Department Helper Relationship Specialty Start Date End Date Ken Contreras MD [address] [place] [address] PCP - General Internal Medicine 05/01/17 Marquise Javed MD [address] [address] Cardiology 05/01/21 Department Helper Relationship Specialty Start Date End Date Ken Contreras MD [address] [facility] [place] [address] PCP - General Internal Medicine 05/01/17 Marquise Javed MD [address] [place] [address] Cardiology 05/01/21 Department Helper Relationship Specialty Start Date End Date Ken Contreras MD [address] [facility] [place] [address] PCP - General Internal Medicine 05/01/17 Marquise Javed MD [address] [place] [address] Cardiology 05/01/21 Department Helper Relationship Specialty Start Date End Date Ken Contreras MD [address] [facility] [place] [address] PCP - General Internal Medicine 05/01/17 Marquise Javed MD [address] [place] [address] Cardiology 05/01/21 Department Helper Relationship Specialty Start Date End Date Ken Contreras MD [address] [place] [address] PCP - General Internal Medicine 05/01/17 Marquise Javed MD [address] [address] Cardiology 05/01/21 Department Helper Relationship Specialty Start Date End Date Ken Contreras MD [address] [place] [address] PCP - General Internal Medicine 05/01/17 Marquise Javed MD [address] [place] [address] Cardiology 05/01/21 Department Helper Relationship Specialty Start Date End Date Ken Contreras MD [address] [place] [address] PCP - General Internal Medicine 05/01/17 Marquise Javed MD [address] [address] Cardiology 05/01/21 Department Helper Relationship Specialty Start Date End Date Ken Contreras MD [address] [place] [address] PCP - General Internal Medicine 05/01/17 Marquise Javed MD [address] [address] Cardiology 05/01/21 Department Helper Relationship Specialty Start Date End Date Ken Contreras MD [address] [place] [address] PCP - General Internal Medicine 05/01/17 Marquise Javed MD [address] [address] Cardiology 05/01/21 Department Helper Relationship Specialty Start Date End Date Ken Contreras MD [address] [place] [address] PCP - General Internal Medicine 05/01/17 Marquise Javed MD [address] [place] [address] Cardiology 05/01/21 Department Helper Relationship Specialty Start Date End Date Ken Contreras MD [address] [place] [address] PCP - General Internal Medicine 05/01/17 Marquise Javed MD [address] [place] [address] Cardiology 05/01/21 Department Helper Relationship Specialty Start Date End Date Ken Contreras MD [address] [place] [address] PCP - General Internal Medicine 05/01/17 Marquise Javed MD [address] [place] [address] Cardiology 05/01/21 Department Helper Relationship Specialty Start Date End Date Ken Contreras MD [address] [place] [address] PCP - General Internal Medicine 05/01/17 Marquise Javed MD [address] [address] Cardiology 05/01/21 Department Helper Relationship Specialty Start Date End Date Ken Contreras MD [address] [place] [address] PCP - General Internal Medicine 05/01/17 Marquise Javed MD [address] [place] [address] Cardiology 05/01/21 Department Helper Relationship Specialty Start Date End Date Ken Contreras MD [address] [facility] [place] [address] PCP - General Internal Medicine 05/01/17 Marquise Javed MD [address] [place] [address] Cardiology 05/01/21 Department Helper Relationship Specialty Start Date End Date Ken Contreras MD [address] [facility] [place] [address] PCP - General Internal Medicine 05/01/17 Marquise Javed MD [address] [place] [address], [place] [address] Cardiology 05/01/21 Department Helper Relationship Specialty Start Date End Date Ken Contreras MD [address] [place] [address] PCP - General Internal Medicine 05/01/17 Marquise Javed MD [address] [place] [address] Cardiology 05/01/21 Dia Lopez, KALEE.ART GILDER [address] [place] [address] [facility] Internal Medicine 08/15/24 Department Helper Relationship Specialty Start Date End Date Ken Contreras MD [address] [facility] [place] [address] PCP - General Internal Medicine 05/01/17 Marquise Javed MD [address] [place] [address] Cardiology 05/01/21 Dia Lopez, DOG BOARDER.ART GILDER [address] [place] [address] [facility] Internal Medicine 08/15/24 Department Helper Relationship Specialty Start Date End Date Ken Contreras MD [address] [place] [address] PCP - General Internal Medicine 05/01/17 Marquise Javed MD [address] [place] [address] Cardiology 05/01/21 Dia Lopez, DOG BOARDER.ART GILDER [address] [place] [address] [facility] Internal Medicine 08/15/24 Department Helper Relationship Specialty Start Date End Date Ken Contreras MD [address] [facility] [place] [address] PCP - General Internal Medicine 05/01/17 Marquise Javed MD [address] [place] [address] Cardiology 05/01/21 Dia Lopez, DOG BOARDER.ART GILDER [address] [place] [address] [employer] Internal Medicine 08/15/24 Department Helper Relationship Specialty Start Date End Date Ken Contreras MD [address] [place] [address] PCP - General Internal Medicine 05/01/17 Marquise Javed MD [address] [facility] [address] [place] [address] Cardiology 05/01/21 Dia Lopez, DOG BOARDER.ART GILDER [address] [place] [address] [employer] Director Internal Medicine 08/15/24 Department Helper Relationship Specialty Start Date End Date Ken Contreras MD [address] [place] [address] PCP - General Internal Medicine 05/01/17 Marquise [facility]aved MD [facility] [facility] [address] [place] [address] Cardiology 05/01/21 Dia Lopez, DOG BOARDER.ART GILDER [address] [place] [address] [employer] Director Internal Medicine 08/15/24 Department Helper Relationship Specialty Start Date End Date Ken Contreras MD [address] [place] [address] PCP - General Internal Medicine 05/01/17 Marquise Javed MD [address] [place] [address] Cardiology 05/01/21 Dia Lopez, DOG BOARDER.ART GILDER [address] [place] [address] [employer] Director Internal Medicine 08/15/24 Najma John, cane weigher helperVp Patient 11/01/24 Department Helper Relationship Specialty Start Date End Date Ken Contreras MD [address] [facility] [place] [address] PCP - General Internal Medicine 05/01/17 Marquise Javed MD [address] [place] [address] Cardiology 05/01/21 Dia Lopez, DOG BOARDER.ART GILDER [address] [place] [address] [employer] Director Internal Medicine 08/15/24 Najma John, cane weigher helperVp Patient 11/01/24 Department Helper Relationship Specialty Start Date End Date Ken Contreras MD [address] [place] [address] PCP - General Internal Medicine 05/01/17 Marquise Javed MD [address] [place] [address] Cardiology 05/01/21 Dia Lopez, DOG BOARDER.ART GILDER [address] [facility] [place] [address] Waterfront Director Internal Medicine 08/15/24 Najma John, cane weigher helperVp Patient 11/01/24 Department Helper Relationship Specialty Start Date End Date Ken Contreras MD [address] [facility] [place] [address] PCP - General Internal Medicine 05/01/17 Marquise Javed MD [address] [place] [address] Cardiology 05/01/21 Dia Lopez, DOG BOARDER.ART GILDER [address] [facility] [place] [address] Waterfront Director Internal Medicine 08/15/24 Najma John RN Vp Patient 11/01/24 Department Helper Relationship Specialty Start Date End Date Ken Contreras MD [address] [facility] [place] [address] PCP - General Internal Medicine 05/01/17 Marquise Javed MD [address] [facility] [address] [place] [address] Cardiology 05/01/21 Dia Lopez, DOG BOARDER.ART GILDER [address] [facility] [place] [address] Waterfront Director Internal Medicine 08/15/24 Najma John, cane weigher helperVp Patient 11/01/24 Team Status: Active Member Role Status [...] Status: Inactive Member Role Status Dates Dr. Kne Contreras MD Primary [...] November 11, 2024 End: November 11, 2024 Department Helper Relationship Specialty Start Date End Date Ken Contreras MD [address] [place] [address] PCP - General Internal Medicine 05/01/17 Marquise Javed MD [address] [place] [address] Cardiology 05/01/21 Dia Lopez, DOG BOARDER.ART GILDER [address] [facility] [place] [address] Waterfront Director Internal Medicine 08/15/24 Najma John, cane weigher helperVp Patient 11/01/24 Department Helper Relationship Specialty Start Date End Date Ken Contreras MD [address] [place] [address] PCP - General Internal Medicine 05/01/17 Marquise Javed MD [address] [place] [address] Cardiology 05/01/21 Dia Lopez, DOG BOARDER.ART GILDER [address] [place] [address] Waterfront Director Internal Medicine 08/15/24 Najma John, cane weigher helperVp Patient 11/01/24 Department Helper Relationship Specialty Start Date End Date Ken Contreras MD [address] [place] [address] PCP - General Internal Medicine 05/01/17 Marquise Javed MD [address] [place] [address] Cardiology 05/01/21 Dia Lopez, DOG BOARDER.ART GILDER [address] [facility] [place] [address] Waterfront Director Internal Medicine 08/15/24 Najma John, cane weigher helperVp Patient 11/01/24 Department Helper Relationship Specialty Start Date End Date Ken Contreras MD [address] [facility] [place] [address] PCP - General Internal Medicine 05/01/17 Marquise Javed MD [address] [place] [address] Cardiology 05/01/21 Dia Lopez, DOG BOARDER.ART GILDER [address] [facility] [place] [address] Waterfront Director Internal Medicine 08/15/24 Najma John cane weigher helperVp Patient 11/01/24 Department Helper Relationship Specialty Start Date End Date Ken Contreras MD [address] [facility] [place] [address] PCP - General Internal Medicine 05/01/17 Marquise Javed MD [address] [place] [address] Cardiology 05/01/21 Dia Lopez, DOG BOARDER.ART GILDER [address] [facility] [place] [address] Waterfront Director Internal Medicine 08/15/24 Najma John cane weigher helperVp Patient 11/01/24 Department Helper Relationship Specialty Start Date End Date Ken Contreras MD [address] [facility] [place] [address] PCP - General Internal Medicine 05/01/17 Marquise Javed MD [address] [place] [address] Cardiology 05/01/21 Dia Lopez, DOG BOARDER.ART GILDER [address] [facility] [place] [address] Waterfront Director Internal Medicine 08/15/24 Najma John, cane weigher helperVp Patient 11/01/24 Department Helper Relationship Specialty Start Date End Date Ken Contreras MD [address] [facility] [place] [address] PCP - General Internal Medicine 05/01/17 Marquise Javed MD [address] [place] [address] Cardiology 05/01/21 Dia Lopez, DOG BOARDER.ART GILDER [address] [facility] [place] [address] Waterfront Director Internal Medicine 08/15/24 Department Helper Relationship Specialty Start Date End Date Ken Contreras MD [address] [facility] [place] [address] PCP - General Internal Medicine 05/01/17 Marquise Javed MD [address] [place] [address] Cardiology 05/01/21 Dia Lopez, DOG BOARDER.ART GILDER [address] [facility] [place] [address] Waterfront Director Internal Medicine 08/15/24 Department Helper Relationship Specialty Start Date End Date Ken Contreras MD [address] [facility] [place] [address] PCP - General Internal Medicine 05/01/17 Marquise Javed MD [address] [place] [address] Cardiology 05/01/21 Dia Lopez, DOG BOARDER.ART GILDER [address] [facility] [place] [address] [facility] Internal Medicine 08/15/24 Department Helper Relationship Specialty Start Date End Date Ken Contreras MD [address] [facility] [place] [address] PCP - General Internal Medicine 05/01/17 Marquise Javed MD [address] [place] [address] Cardiology 05/01/21 Dia Lopez, DOG BOARDER.ART GILDER [address] [facility] [place] [address] Waterfront Director Internal Medicine 08/15/24 Team Status: Inactive Member [...] February 15, 2025 End: February 15, 2025 Department Helper Relationship Specialty Start Date End Date Ken Contreras MD [address] [place], [place] [address] PCP - General Internal Medicine 05/01/17 Marquise Javed MD [address] [id number] Cardiology 05/01/21 Dia Lopez, DOG BOARDER.ART GILDER [address] [place], [place] [address] Waterfront Director Internal Medicine 08/15/24 Team Status: Active Member [...] Provider Active S tart: March 08, 2025 Department Helper Relationship Specialty Start Date End Date Ken Contreras MD [address] [place] [address] PCP - General Internal Medicine 05/01/17 [place] [address] [place] [address] Cardiology 05/01/21 Dia Lopez, DOG BOARDER.[facility] [address] [place] [address] Waterfront Director Internal Medicine 08/15/24 Team Status: Inactive Member [...] 31, 2025 End: March 31, 2025 Latonya Vargas PA, PA Attending Provider Active Start: March 31, 2025 End: March 31, 2025 Department Helper Relationship Specialty Start Date End Date Ken Contreras MD [address] [place] [address] PCP - General Internal Medicine 05/01/17 Marquise Javed MD [address] [address] Cardiology 05/01/21 Dia Lopez, DOG BOARDER.[facility] [address] [place] [address] Waterfront Director Internal Medicine 08/15/24 Goals (unrecognized section and [...] section and content) DATE CREATED AUTHOR 01/30/2024 [facility] DATE CREATED AUTHOR AUTHOR'S ORGANIZ ATION 06/08/2024 [facility] DATE CREATED AUTHOR AUTHOR'S ORGANIZ ATION 04/04/2025 [facility] DATE CREATED AUTHOR AUTHOR'S ORGANIZ ATION 04/17/2025 [facility] FOR RECORDS PERTAINING TO PATIENTS [...] BE BASED ON THE PRIMARY CLINICAL RECORDS. [employer] [facility]. provides no warranty or guarantee of the accuracy or completeness of information in this document.
[2025-04-17 01:18] LABS: Magnesium 2.1 mg/dL (1.5-2.2)
[2025-04-17] MEDS: 0.9% Normal Saline (1000mL) 1,000 ML 100 ML IV (02:58)
[2025-04-17] MEDS: 0.9% Saline Lock 10 ML Syringe IV (05:23)
[2025-04-17 06:05] LABS: Hematocrit 33.4 % (37-47); Hemoglobin 10.7 g/dL (12.0-15.0); Immature Granulocytes Count 0.050 X10^3/uL (0.0-0.0); Mean Corp Hgb Conc 32.0 g/dL (32-36); Mean Corpuscular Volume 98.5 fL (81-99); Mean Platelet Vol. 10.4 fl (6.2-12.0); NRBC Flagged by Analyzer 0 % (0-5); Platelet Count 245 K/mm3 (150-450); RBC Distribution Width CV 14.8 % (11.6-14.6); RBC Distribution Width SD 54.0 fl (35.1-43.9); Red Blood Count 3.39 M/mm3 (4.2-5.4); White Blood Count 9.6 K/mm3 (4.4-11.0)
[2025-04-17 06:40] LABS: AST(SGOT) 27 U/L (<=31); Alanine Aminotransfer ALT/SGPT 12 U/L (<=34); Albumin, Serum 3.2 g/dL (3.4-4.8); Alkaline Phosphatase 165 U/L (35-104); Anion Gap 11 (5-15); BUN 28 mg/dL (4-19); BUN/Creat Ratio 25.3 RATIO (10-20); Calcium,Total 9.3 mg/dL (7.6-11.0); Carbon Dioxide 22.7 mmol/L (21.0-32.0); Chloride 105 mmol/L (98-108); Estimated Creatinine Clearance 32.82 ml/min (50-250); Globulin 3.0 g/dL (2.2-4.2); Glucose 90 mg/dL (70-99); Potassium 3.6 mmol/L (3.3-5.1)
[2025-04-17] MEDS: Budesonide Respules 0.5 MG/2 ML AMPUL.NEB. INHALATION (07:03)
--- NOTE | 2025-04-17 09:08 | PCM.PN.HOSP ---
Reason for Visit Chief Complaint: Fall, hit head, LOC. Objective Data Objective Data Vital Signs: Vital Signs Temp Pulse Resp BP Pulse Ox O2 Del Method 98.5 F 60 15 158/77 H 91 Room Air 04/17/25 02:07 04/17/25 07:03 04/17/25 07:03 04/17/25 02:07 04/17/25 07:03 04/17/25 07:03 Oxygen Delivery Method Room Air Weight: 161 lb 6.054 oz Body Mass Index (BMI) 29.5 Intake & Output: Intake and Output for Last 24 Hours 04/15/25 04/16/25 04/17/25 23:59 23:59 23:59 Output Total 500 / 500 Balance -500 / -500 Lab / Micro Data 04/17/25 05:42 04/17/25 05:42 Labs: Laboratory Results - last 24 hr 04/16/25 21:24: WBC 8.1, RBC 3.38 L, Hgb 10.5 L, Hct 33.6 L, MCV 99.4 H, MCH 31.1, MCHC 31.3 L, RDW Std Deviation 54.9 H, RDW Coeff of Dave 14.9 H, Plt Count 232, MPV 10.2, Immature Gran % (Auto) 0.900, Neut % (Auto) 62.5, Lymph % (Auto) 22.0, [place] % (Auto) 11.1 H, Eos % (Auto) 2.9, Baso % (Auto) 0.6, Absolute Neuts (auto) 5.0, Absolute Lymphs (auto) 1.77, Nucleated RBC % 0, PT 13.4, INR 1.0, APTT 27.1, Sodium 141, Potassium 4.1, Chloride 107, Carbon Dioxide 23.9, Anion Gap 10, BUN 35 H, Creatinine 1.40 H, Estim Creat Clear Calc 25.67 L, Est GFR (MDRD) Non-Af 36 L, BUN/Creatinine Ratio 24.6 H, Glucose 103 H, Calcium 9.4, Magnesium 2.1, Urine Color Yellow, Urine Clarity Clear, Urine pH 6.5, Ur Specific [place] 1.010, Urine Protein Negative, Urine Glucose (UA) Normal, Urine Ketones Negative, Urine Occult Blood Negative, Urine Nitrite Negative, Urine Bilirubin Negative, Urine Urobilinogen Normal, Ur Leukocyte Esterase Negative, Urine RBC 0-5 SEEN, Urine WBC 0-5 SEEN, Ur Squamous Epith Cells 0-5 SEEN, Urine Bacteria RARE, Urine Mucus 0 SEEN 04/17/25 05:42: WBC 9.6, RBC 3.39 L, Hgb 10.7 L, Hct 33.4 L, MCV 98.5, MCH 31.6, MCHC 32.0, RDW Std Deviation 54.0 H, RDW Coeff of Dave 14.8 H, Plt Count 245, MPV 10.4, Immature Gran % (Auto) 0.500, Neut % (Auto) 61.0, Lymph % (Auto) 23.4, [place] % (Auto) 11.3 H, Eos % (Auto) 3.2, Baso % (Auto) 0.6, Absolute Neuts (auto) 5.9, Absolute Lymphs (auto) 2.25, Nucleated RBC % 0, Sodium 138, Potassium 3.6, Chloride 105, Carbon Dioxide 22.7, Anion Gap 11, BUN 28 H, Creatinine 1.11, Estim Creat Clear Calc 32.82 L, Est GFR (MDRD) Non-Af 48 L, BUN/Creatinine Ratio 25.3 H, Glucose 90, Calcium 9.3, Total Bilirubin 0.47, AST 27, ALT 12, Alkaline Phosphatase 165 H, Total Protein 6.2, Albumin 3.2 L, Globulin 3.0, Albumin/Globulin Ratio 1.1, TSH 1.080 Radiography Diagnostic Testing: Radiology Impression Brain CT 04/16/25 21:01 IMPRESSION: 1. No intracranial hemorrhage. No mass effect or midline shift. 2. 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 Reading Location: [facility] Physical Exam Narrative Seen and examined She fell down after getting LOC. Sutures/lázaro on on it. She denies any acute instability in lower extremity joints leading to fall. No chest pain pressure or tightness She had multiple times fall in the past but denies any LOC in the past. Physical exam General: Alert, Oriented x3, Cooperative HEENT: Atraumatic, PERRLA, EOMI, Normocephalic. Oral: No Gingival or Mucosal Lesions/ Ulcerations Neck: Supple, No JVD, Negative Carotid Bruits Chest wall/Lungs: Air entry diminished in bilateral lung bases. No crepitation/rhonchi Cardiovascular: Regular rate and rhythm, Normal S1,S2, No M/G/R Abdomen: Bowel Sounds Present, Soft, Non Tender, Non-Distended : No dysuria. No renal angle tenderness. No suprapubic tenderness. Extremities: No edema, Capillary Refill Less than 3 Seconds Skin: Staple on the back of the head. Musculoskeletal: No Tenderness to Palpation of Joints or Extremities Neurological: Cranial nerves II-XII grossly intact, DTR 2+/4. No acute focal neurological deficit. Psych/Mental Status: Normal Affect, Appropriate. Assessment & Plan Assessment/Plan (1) Frequent falls: PLAN: Plan The patient is an 89 y/o F admitted with unwitnessed mechanical fall on the day of ED presentation, fell forward with CT of the head with not recall of any event with some mild amnesia and loss of consciousness. Laceration at the back of the head generalized headache. #1. Recurrent mechanical falls with adult failure to thrive with episode of head trauma with LOC with transient amnesia, currently resolved: Exact etiology of fall unclear but seems probably patient lost consciousness and then fell down. Denies acute instability in lower extremity joints. Unclear about the cause of LOC. Patient on baclofen 5 mg twice daily, lorazepam 2 mg nightly. This might be region of her LOC in the fall. She had 6 lázaro placed to the scalp and will need these removed in 1 week/7 days. #2. Macrocytic anemia: Admission hemoglobin 10.5, MCV 99.4, baseline hemoglobin noted to vacillate, more recently has been 11-12 however this was greater than 6 months previous to current presentation, will trend CBC. #3. Chronic Kidney Disease Stage III,: Admission BUN/Cr 35/1.40, GFR 36, baseline renal function more recently 1.3-1.4 with last noted 11/11/2024 creatinine 1.42, repeat BMP in AM. #4. Anxiety and depression: Will continue patient home paroxetine regimen. Patient is on a significant amount of lorazepam noted to be 2 mg nightly, given advanced age this may be significantly contributing to her fall risk. Given recent amnesic event will temporarily hold and may need to restart back at a lower dose and then wean off outpatient. #5. Hypertension: Continue home regimen including lisinopril, Lasix with hold parameters as needed although orthostatics are negative of note, PRN hydralazine. #6. Hyperlipidemia: Not on statin #7. OA, chronic pain: Patient is on significant mount as noted nightly Ativan specifically 2 mg in addition to being on baclofen 5 mg p.o. twice daily as a muscle relaxer and unfortunately these items are very sedated and likely contributing to her falls, will temporarily hold but may need to resume at a lower dose and weaned off outpatient. #8. Chronic asthma with allergic rhinitis: Continue ATC budesonide therapy, as needed albuterol, encourage head of bed and I-S, will continue patient home loratadine regimen. 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 #10. History SSS: Status post pacemaker placement, encourage continued follow-up and interrogation outpatient as previously arranged. #11. Former tobacco use: Encouraged continued tobacco cessation. #12. Hypothyroidism: continue patient on levothyroxine regimen. #13. GERD: New patient on PPI. #14. JADIEL: Patient does not use any PAP therapy, uses 2 L NC nightly. #15. DVT prophylaxis: Heparin. #16. CODE status: Patient HCPOA is her brother primary and secondary is her daughter and living will is currently in place. Discussed CODE status at length including difference between FULL code, DNR-CCA and DNR-CC status. Following discussions about the differences in these status, requested DNR CCA, clarified further with examples and patient determined with intubation. Charges/Coding Visit Charges Inpatient E&M: 54423 Subs Hosp L2
[2025-04-17] MEDS: BRIMONIDINE 0.2% 5ML BOTTLE 1 DRP OPHTHALMIC ×2 (10:22→21:12)
[2025-04-17] MEDS: Timolol 0.5% 5ML OPTH.BTL 1 DRP OPHTHALMIC ×2 (10:23→21:11)
[2025-04-17] MEDS: Polyethylene Glycol 3350 17 GM PACKET PO (10:28)
--- NOTE | 2025-04-17 12:32 | CASEMGMT ---
Addendum entered by Geraldine Frazier 04/17/25 16:50: Social Work Pt did inform SW she goes to [facility] for outpt therapy. Pt's granddaughter Lynsey here, she asked to speak w/SW about AL. SW met w/Lynsey in room, provided a list of ALs and some education around the referral process, and that most are private pay vs. applying for and qualifying for Medicaid. Pt lives w/her brother Anthony, and has lived w/him since 1993. She states Anthony, who is almost 90, does not want to go to AL and she won't go w/o him. SW spoke w/Lynsey and pt about private hire aides, as this may be an option, and provided this list to the granddaughter. Pt's daughter will be here tomorrow from [place], Lynsey will pass this information on to her. SW also explained waiting for PT/OT evaluations to determine if pt can return home after this hospital stay or if SNF may be needed. SW to follow up tomorrow w/pt and daughter, once pt has had PT/OT, to further make appropriate discharge plans. DISHA Atkins Original Note: Social Work SW met w/pt, pt's brother Dennys also present. SW spoke w/her about prior level of function and anticipated discharge plan. PCP: Dr. Contreras Specialists: Pulmonology: Dr. Shannon Luevano; Urology: Dr. Hansen; Cardiology: Dr. Mcpherson; Podiatry: Dr. Bills; Opthamology: Janett Varela Insurance: Medicare/[employer] Prescription Coverage: Yes Preferred Pharmacy: [facility] in [place] LW/POA: On file, daughter Aleah Tilley is POA LNOK: Three children, two brothers Living arrangements/Prior level of function: Pt lives in a one story home, three steps in, with a lower level. Pt lives w/her brother, they stay on the main floor. Pt goes in through the garage as she can get up the steps there. Pt is independent in caring for herself, bathing, dressing, organizing her medications. Pt's brother Anthony does the dishes and has been cooking. He also has been driving, pt states her brother will likely not let her drive any more as she is unsteady. Pt has a cleaning lady who comes once a month. HHC: Pt has CCN at present. No other history of HHC. SNF: No history of SNF Plan: TBD. Pt has not been to a SNF if the past, SW did educate pt and brother around the referral process for SNF, and the Medicare requirement for coverage. SW explained that SW will speak w/her again once she has had PT/OT to discuss discharge options. SW will continue to follow. DISHA Atkins
--- NOTE | 2025-04-17 14:30 | MRI_ITS ---
PROCEDURE: BRAIN WITHOUT CONTRAST 04/17/2025 REASON FOR EXAM: SUDDEN LOSS OF CONSCIOUSNESS TECHNIQUE: BRAIN WITHOUT CONTRAST Multiplanar and multisequence images were obtained. COMPARISON: CT head April 16, 2025. 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 No hemorrhage. No mass-effect or midline shift. No restricted diffusion to indicate infarction. A hyperintense signal on DWI with no corresponding hypointense signal on ADC map in the left occipital lobe which is artifactual. Ventricles: No ventriculomegaly. Major Intracranial Vessels: Patent. Sinuses: Clear. Mastoids: Clear. MRI/Brain without Contrast IMPRESSION: No acute brain abnormalities. Chronic changes which are nonspecific but most likely due to chronic small-vess el ischemia. Reading Location: [id number]
--- NOTE | 2025-04-17 14:51 | NEURO.CONS ---
Assessment and Plan: Neuro Assessment/Plan GEOFFREY NASSAR is a 89 F with a past medical history of SSS s/p pacemaker status, GERD, HTN, HLD, Asthma, Hx VTE w/ submassive PE, Hypothyroidism, Former tobacco use, JADIEL, CKD stage III prior TBI with associated hemorrhage (unclear if IPH, SAH or SDH), being evaluated by Teleneurology for recurrent falls. On history, these falls are occurring when patient is walking and her R leg will move in front of the L and trip her. This is an atypical movement and stereotyped. Her exam currently largely remarkable only for parkinsonian symptoms with hypomimia and slowing on LUISA testing R>L. On imaging there is subtle superficial siderosis on the L parietal which could represent her old hemorrhage and very enlarged microvascular spaces with severe global atrophy. Ddx includes progressive neurcognitive disorder triggered by her hemorrhage (or potentially she had a hemorrhage that led to the fall), possible very focal seizure or dystonia of the foot causing the symptoms, or possible neuropathy (although this was not endorsed and proprioception is largely intact on testing). Plan: - Vitamin B12, folate, Vitaming B1 - agree with routine EEG - MRI Brain no acute abnormalities - agree physical therapy Outpatient neurocognitive testing. I personally attended this patient and spent a total time of 60minutes evaluating this patient including clinical assessment, review of chart, medical history imaging, and determining appropriate treatment and workup. HPI Consult Data Date of Consult: 04/18/25 HPI Narrative HPI Narrative: The patient is an 89 y/o F w/ PMHx: Hx SSS s/p pacemaker status, GERD, HTN, HLD, Asthma, Hx VTE w/ submassive PE, Hypothyroidism, Former tobacco use, JADIEL, CKD stage III per GFR trending, Chronic anemia who presents to the [facility] ED on 04/17/2025 with history of mechanical fall occurring on day of presentation noted that she had been bending over and fell forward hitting the back of her head unfortunately not recalling any of the event with loss of consciousness and some mild amnesia associated with an aching generalized headache following prompting eventual ED evaluation. She does report that she believes she was unconscious only for seconds. She does report that she is been falling more frequently over the last several weeks. Patient reports mild headache still, generalized, rating it 2-3 out of 10 in severity with no light or sound sensitivity. Workup in the ED included T97.6, heart rate 60, BP 147/70, respiratory rate 16, 95% on room air with most recent repeat vitals heart rate 60, BP 161/77, respiratory rate 17, 95% on room air, orthostatics unremarkable, CBC with WBC 8.1, hemoglobin 10.5, MCV 99.4, platelet 232 without marked shift, unremarkable coags, BMP with BUN/canaille 35/1.40, GFR 36, glucose 103, urinalysis unremarkable, CT brain with no acute intracranial finding with chronic involutional and ischemic gliotic white matter changes noted previously. In the ED patient administered tetanus update. Family noted concerns of patient being able to safely return to home especially given her frequent falls. Patient in the ED did have irrigation of her head laceration with eventual closure with 6 lázaro. Neurologic History In the last months has fallen 3 times, ended up coming to the hospital this time because she had blacked out and was bleeding in her scalp requiring lázaro in back of her head. All the other falls she remembers what happens, even after a concussion she had a year ago. Has been falling. Has started having more falls the 6-8 months. These falls are happening when she walks and stands. She is endorsing tripping more and the R leg will cross in front of the L foot. The falls have all occurred while she is walking. Patient endorses starting Wellbutrin (a month ago), lasix (June 2024). She does have a nurse that comes by once a week that helps with medications - this started in September 2023 after the nurse that was taking care of her brother started caring for her and this was shortly after she had a fall. Patient does not have the sharpest memory over the last several years. In 2023 she had fallen from a brain bleed. Family states she has had generalized weakness since that fall that caused the traumatic hemorrhage. Prior to these falls, denies lightheadedness or dizziness. Denies any difficulty with her other ADLs. Patient does endorse being a little slower since last September. 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 Has difficulty getting in and out of the car has been more difficulty. Currently still maria hernandez her brother. Denies issues with eating. Patient's family has lost her appetite of late and has 20 lbs the last year. There has been a decline in memory over the last year - she has had a hard time figuring out what to say and decision making has been more difficult of late. She uses a walker to walk at home, but was not walking with the walker when she was at home Neurologic Exam -? General: Laying comfortably in bed; in no acute distress. -? HENT: Normal oropharynx and mucosa. Normal external appearance of ears and nose. Exophthalmos. -? Neck: Supple, no pain or tenderness -? CV:? No peripheral edema. -? Pulmonary:? Normal respiratory effort. -? Ext: No cyanosis, edema, or deformity -? Skin: No rash. Normal palpation of skin.? -? Musculoskeletal: full range of motion; no joint tenderness. Normal digits and nails by inspection. No clubbing. -? NEURO: -? Mental Status: The patient was alert and oriented to time, place, and person. Normal recent/remote memory, concentration, and general fund of knowledge. -? Language: speech is clear.? Naming, repetition, fluency, and comprehension intact. MOCA - 15/22 (performed the tele-MOCA, missed elements on abstraction, delayed recall, calculation, and orientation) -? Cranial Nerves: R [id number] reactive, L pupil 4mm and less reactive. EOMI, visual mcgee full, no facial asymmetry, facial sensation intact, hearing intact, tongue midline, no evidence of atrophy or fibrillations. -? Motor: normal bulk, tone, and strength throughout. No pronator drift or satelliting. Upper and lower extremities equal bilaterally. -? Detailed strength exam as performed by the nurse/REGIS and witnessed by the physician: R L SA 5 5 EE 5 5 EF WE WF Counter Pocket Trimmer 5 5 HF KE KF 5 5 DF 5 5 PF 5 5 -? Tone: is normal and bulk is normal -? Sensation- Intact to light touch bilaterally, proprioception intact b/l -? Coordination: No dysmetria on [id number], finger follow finger or [id number]. -? Gait- walked with a walker, normal base, stooped posture, unable to assess arm swing, [facility] Medical History Presence of cardiac pacemaker (~05/29/21) Chronotropic incompetence with sinus node dysfunction Sick sinus syndrome Sinus bradycardia Retinal detachment Essential hypertension GERD (gastroesophageal reflux disease) Acute respiratory failure with hypoxia PND (post-nasal drip) History of non-ST elevation myocardial infarction (NSTEMI) Pulmonary nodule Cough Dizziness Bronchiectasis Thrush, oral Dyspnea Chest pain Asthma exacerbation Bilateral SubmassivePE Hypothyroidism Asthmatic bronchitis , chronic Home Medications ?Medication ?Instructions ?Recorded ?Last Taken ?Type acetaminophen 325 mg tablet 650 mg PO QHS pain 11/17/16 04/15/25 History baclofen 10 mg tablet 5 mg PO BID muscle relaxer 11/17/16 04/15/25 History cyanocobalamin (vitamin B-12) 1,000 mcg PO DAILY vitamin 11/17/16 04/15/25 History 1,000 mcg tablet multivitamin 1 tab PO DAILY vitamin 11/17/16 04/15/25 History paroxetine HCl 10 mg tablet 40 mg PO DAILY mental health 11/17/16 04/15/25 History polyethylene glycol 3350 17 gram 17 gm PO PRN constipation 05/27/17 04/13/25 History oral powder packet aspirin 81 mg tablet,delayed 81 mg PO QHS heart health 11/27/17 04/15/25 History release lamotrigine 25 mg tablet,extended 25 mg PO DAILY 11/27/17 04/15/25 History release 24 hr loratadine 10 mg tablet (Claritin) 10 mg PO PRN allergies 12/27/20 04/15/25 History albuterol sulfate 2.5 mg/3 mL 2.5 mg inhalation Q4H PRN Sob &/Or 01/10/21 05/29/21 History (0.083 %) solution for nebulization Wheezing brimonidine 0.2 %-timolol 0.5 % 1 drp ophthalmic (eye) BID eye 01/10/21 04/15/25 History eye drops (Combigan) health ketotifen fumarate 0.025 % (0.035 1 drp ophthalmic (eye) BID eye 01/10/21 Unknown History %) eye drops health latanoprost 0.005 % eye drops, 1 drp ophthalmic (eye) QPM eye 01/10/21 04/15/25 History emulsion health lorazepam 1 mg tablet 2 mg PO QHS anxiety 01/10/21 Unknown History pantoprazole 20 mg tablet,delayed 40 mg PO DAILY reflux 01/10/21 04/15/25 History release vibegron 75 mg tablet (Gemtesa) 75 mg PO DAILY 08/07/21 04/15/25 History albuterol sulfate 90 mcg/actuation 1 - 2 puff inhalation Q4H PRN PRN 02/11/22 04/15/25 Rx aerosol inhaler Shortness Of Breath #18 grams ascorbic acid (vitamin C) 250 mg 250 mg PO BID 08/19/22 Unknown History tablet lactobacillus combination no.9 4 4,000 mmu cells PO DAILY 08/19/22 04/15/25 History billion cell capsule (Adult 50 Plus Probiotic) ergocalciferol (vitamin D2) 1,250 50,000 unit PO QMONTH vitamin 09/10/22 Unknown History mcg (50,000 unit) capsule levothyroxine 88 mcg tablet 88 mcg PO .COMPLEX thyroid 07/01/24 04/14/25 History fluticasone furoate 100 1 inh inhalation DAILY #60 ea 08/22/24 04/15/25 Rx mcg-vilanterol 25 mcg/dose inhalation powder (Breo Ellipta) meloxicam 15 mg tablet 15 mg PO DAILY 09/21/24 04/15/25 History lisinopril 20 mg tablet 20 mg PO DAILY blood pressure #90 03/31/25 04/15/25 Rx tabs estradiol 0.01% (0.1 mg/gram) 1 g vaginal 3XW 3 months #42.5 04/14/25 04/10/25 Rx vaginal cream grams nitrofurantoin 100 mg PO BID #14 caps 04/14/25 04/16/25 Rx monohydrate/macrocrystals 100 mg capsule (Macrobid) furosemide 20 mg tablet 10 mg PO QAM Diuretic 04/17/25 04/15/25 History Allergy/AdvReac Type Severity Reaction Status Date / Time ciprofloxacin (From Cipro) Allergy Itching Verified 04/17/25 02:22 diphenhydramine (From Allergy Rash Verified 04/17/25 02:22 Benadryl) Penicillins Allergy Hives Verified 04/17/25 02:22 shellfish derived Allergy Anaphylaxis Verified 04/17/25 02:22 Sulfa (Sulfonamide Allergy Upset Verified 04/17/25 02:22 Antibiotics) Stomach tiotropium (From Spiriva Allergy Other Verified 04/17/25 02:22 with HandiHaler) ketamine AdvReac hallucinati Verified 04/17/25 02:22 ons Family History Mother Breast cancer Colon cancer Father Cancer Lung Grandmother Breast cancer CVA (cerebral vascular accident) Surgical History History of tonsillectomy History of cholecystectomy History of bronchoscopy History of cataract extraction History of hysterectomy History of bladder suspension procedure Social History (Updated 04/17/25 @ 00:[address] Idalia Marti MD) household members: none Smoking Status: Former smoker Tobacco: How many years used: 10 second hand exposure: No alcohol intake: current details: occasional substance use type: does not use caffeine: Yes Type: coffee what type of physical activity do you participate in: other seatbelt use: always do you feel safe at home: Yes Vital Signs Vital Signs Vital Signs: 04/16/25 18:46 04/16/25 20:45 04/16/25 21:09 Temperature 97.6 F L Temperature Source Oral Pulse Rate 60 63 Pulse Rate [Lying] Pulse Rate [Sitting (for 1 minute prior to obtaining)] Pulse Rate [Standing (for 1 minute prior to obtaining)] Respiratory Rate 16 18 Respiratory Effort Normal Respiratory Depth Normal Respiratory Pattern Normal Blood Pressure 147/70 H 149/77 H Blood Pressure [Lying] Blood Pressure [Sitting (for 1 minute prior to obtaining)] Blood Pressure [Standing (for 1 minute prior to obtaining)] Blood Pressure Mean 95 101 Blood Pressure Mean [Lying] Blood Pressure Mean [Sitting (for 1 minute prior to obtaining)] Blood Pressure Mean [Standing (for 1 minute prior to obtaining)] Blood Pressure Source Blood Pressure Position Blood Pressure Location Pulse Ox 95 93 Oxygen Delivery Method Room Air Room Air Room Air 04/16/25 22:00 04/16/25 23:26 04/17/25 00:00 Temperature Temperature Source Pulse Rate 61 60 Pulse Rate [Lying] 60 Pulse Rate [Sitting (for 1 minute prior to obtaining)] 62 Pulse Rate [Standing (for 1 minute prior to obtaining)] 78 Respiratory Rate 18 17 Respiratory Effort Respiratory Depth Respiratory Pattern Blood Pressure 147/72 H 161/77 H Blood Pressure [Lying] 142/70 H Blood Pressure [Sitting (for 1 minute prior to obtaining)] 142/77 H Blood Pressure [Standing (for 1 minute prior to obtaining)] 141/87 H Blood Pressure Mean 97 105 Blood Pressure Mean [Lying] 94 Blood Pressure Mean [Sitting (for 1 minute prior to obtaining)] 98 Blood Pressure Mean [Standing (for 1 minute prior to obtaining)] 105 Blood Pressure Source Blood Pressure Position Blood Pressure Location Pulse Ox 100 95 Oxygen Delivery Method Room Air Room Air 04/17/25 00:54 04/17/25 02:07 04/17/25 02:30 Temperature 98.3 F 98.5 F Temperature Source Oral Pulse Rate 63 63 Pulse Rate [Lying] Pulse Rate [Sitting (for 1 minute prior to obtaining)] Pulse Rate [Standing (for 1 minute prior to obtaining)] Respiratory Rate 22 H 16 Respiratory Effort Normal Non-Labored Respiratory Depth Normal Respiratory Pattern Normal Blood Pressure 153/83 H 158/77 H Blood Pressure [Lying] Blood Pressure [Sitting (for 1 minute prior to obtaining)] Blood Pressure [Standing (for 1 minute prior to obtaining)] Blood Pressure Mean 106 104 Blood Pressure Mean [Lying] Blood Pressure Mean [Sitting (for 1 minute prior to obtaining)] Blood Pressure Mean [Standing (for 1 minute prior to obtaining)] Blood Pressure Source Monitor Blood Pressure Position Semi-Fowlers Blood Pressure Location Right Arm Pulse Ox 95 97 Oxygen Delivery Method Room Air Room Air 04/17/25 07:03 04/17/25 07:03 04/17/25 08:00 Temperature 99.0 F Temperature Source Oral Pulse Rate 60 63 Pulse Rate [Lying] Pulse Rate [Sitting (for 1 minute prior to obtaining)] Pulse Rate [Standing (for 1 minute prior to obtaining)] Respiratory Rate 15 17 Respiratory Effort Respiratory Depth Respiratory Pattern Normal Blood Pressure 135/66 H Blood Pressure [Lying] Blood Pressure [Sitting (for 1 minute prior to obtaining)] Blood Pressure [Standing (for 1 minute prior to obtaining)] Blood Pressure Mean 89 Blood Pressure Mean [Lying] Blood Pressure Mean [Sitting (for 1 minute prior to obtaining)] Blood Pressure Mean [Standing (for 1 minute prior to obtaining)] Blood Pressure Source Monitor Blood Pressure Position Semi-Fowlers Blood Pressure Location Left Arm Pulse Ox 91 90 Oxygen Delivery Method Room Air Room Air 04/17/25 10:00 04/17/25 14:45 Temperature Temperature Source Pulse Rate 79 Pulse Rate [Lying] Pulse Rate [Sitting (for 1 minute prior to obtaining)] Pulse Rate [Standing (for 1 minute prior to obtaining)] Respiratory Rate 16 Respiratory Effort Normal Non-Labored Respiratory Depth Respiratory Pattern Blood Pressure 123/72 H Blood Pressure [Lying] Blood Pressure [Sitting (for 1 minute prior to obtaining)] Blood Pressure [Standing (for 1 minute prior to obtaining)] Blood Pressure Mean 89 Blood Pressure Mean [Lying] Blood Pressure Mean [Sitting (for 1 minute prior to obtaining)] Blood Pressure Mean [Standing (for 1 minute prior to obtaining)] Blood Pressure Source Monitor Blood Pressure Position Supine Blood Pressure Location Right Arm Pulse Ox 92 Oxygen Delivery Method Room Air Room Air Weight Weight: 73.2 kg Body Mass Index (BMI) 29.5 EEG Results Procedure Details EEG Procedure Details: GEOFFREY NASSAR is a 89 year old F with a past medical history of , who presents for evaluation of Electroencephalogram on DATE at TIME Lab / Micro Data 04/17/25 05:42 04/17/25 05:42 Labs: Laboratory Results - last 24 hr 04/16/25 21:24: WBC 8.1, RBC 3.38 L, Hgb 10.5 L, Hct 33.6 L, MCV 99.4 H, MCH 31.1, MCHC 31.3 L, RDW Std Deviation 54.9 H, RDW Coeff of Dave 14.9 H, Plt Count 232, MPV 10.2, Immature Gran % (Auto) 0.900, Neut % (Auto) 62.5, Lymph % (Auto) 22.0, Schleicher % (Auto) 11.1 H, Eos % (Auto) 2.9, Baso % (Auto) 0.6, Absolute Neuts (auto) 5.0, Absolute Lymphs (auto) 1.77, Nucleated RBC % 0, PT 13.4, INR 1.0, APTT 27.1, Sodium 141, Potassium 4.1, Chloride 107, Carbon Dioxide 23.9, Anion Gap 10, BUN 35 H, Creatinine 1.40 H, Estim Creat Clear Calc 25.67 L, Est GFR (MDRD) Non-Af 36 L, BUN/Creatinine Ratio 24.6 H, Glucose 103 H, Calcium 9.4, Magnesium 2.1, Urine Color Yellow, Urine Clarity Clear, Urine pH 6.5, Ur Specific Cromwell 1.010, Urine Protein Negative, Urine Glucose (UA) Normal, Urine Ketones Negative, Urine Occult Blood Negative, Urine Nitrite Negative, Urine Bilirubin Negative, Urine Urobilinogen Normal, Ur Leukocyte Esterase Negative, Urine RBC 0-5 SEEN, Urine WBC 0-5 SEEN, Ur Squamous Epith Cells 0-5 SEEN, Urine Bacteria RARE, Urine Mucus 0 SEEN 04/17/25 05:42: WBC 9.6, RBC 3.39 L, Hgb 10.7 L, Hct 33.4 L, MCV 98.5, MCH 31.6, MCHC 32.0, RDW Std Deviation 54.0 H, RDW Coeff of Dave 14.8 H, Plt Count 245, MPV 10.4, Immature Gran % (Auto) 0.500, Neut % (Auto) 61.0, Lymph % (Auto) 23.4, Schleicher % (Auto) 11.3 H, Eos % (Auto) 3.2, Baso % (Auto) 0.6, Absolute Neuts (auto) 5.9, Absolute Lymphs (auto) 2.25, Nucleated RBC % 0, Sodium 138, Potassium 3.6, Chloride 105, Carbon Dioxide 22.7, Anion Gap 11, BUN 28 H, Creatinine 1.11, Estim Creat Clear Calc 32.82 L, Est GFR (MDRD) Non-Af 48 L, BUN/Creatinine Ratio 25.3 H, Glucose 90, Calcium 9.3, Total Bilirubin 0.47, AST 27, ALT 12, Alkaline Phosphatase 165 H, Total Protein 6.2, Albumin 3.2 L, Globulin 3.0, Albumin/Globulin Ratio 1.1, TSH 1.080 Imaging Radiology Impression Brain CT 04/16/25 21:01 IMPRESSION: 1. No intracranial hemorrhage. No mass effect or midline shift. 2. 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 Reading Location: [facility] Active Medications Active Medications Active Medications: Current Medications Generic Name Dose Route Start Last Admin Trade Name Freq PRN Reason Stop Dose Admin Acetaminophen 650 mg 04/17/25 01:56 04/17/25 02:58 Acetaminophen 325 Mg Tablet PO 650 mg Q4H PRN PRN Administration Fever, pain 1-06/16 Al Hydroxide/Mg Hydroxide 30 ml 04/17/25 01:56 Mag Hydrox/Al Hydrox/Simeth 30 Ml Udc PO Q6H PRN PRN Gastric Burning Albuterol Sulfate 2.5 mg 04/17/25 01:56 Albuterol 2.5 Mg/3 Ml Vial.Neb. INHALATION Q2H PRN PRN Dyspnea, wheezing Aspirin 81 mg 04/17/25 22:00 Aspirin E.C. 81 Mg Tablet PO QHS RENÉ Brimonidine Tartrate 1 drp 04/17/25 10:00 04/17/25 10:22 Brimonidine 0.2% 5ml Bottle OPHTHALMIC 1 drp BID RENÉ Administration Budesonide 0.5 mg 04/17/25 01:56 04/17/25 07:03 Budesonide Respules 0.5 Mg/2 Ml Ampul.Neb. INHALATION 0.5 mg BID.RT RENÉ Administration Calamine/Phenol 1 applic 04/17/25 10:00 04/17/25 10:28 Menthol/Lanolin/Calamine/Znox 113 Gm Tube TOPICAL 1 applic 4X/DAY RENÉ Administration Protocol Enoxaparin Sodium 30 mg 04/17/25 10:00 04/17/25 10:22 Enoxaparin 30 Mg/0.3 Ml Syringe SC 30 mg DAILY RENÉ Administration Furosemide 10 mg 04/17/25 10:00 04/17/25 10:22 Furosemide 20 Mg Tablet PO 10 mg QAM RENÉ Administration Protocol Guaifenesin 20 ml 04/17/25 01:56 Guaifenesin 10 Ml Udc (200mg/10ml) PO Q4H PRN PRN COUGH Hydralazine HCl 10 mg 04/17/25 01:56 Hydralazine 20 Mg/Ml Vial IV Q4H PRN PRN SBP > 160 Protocol Sodium Chloride 250 mls @ 15 mls/hr 04/17/25 02:20 IV .[id number] PRN Saline Flush Sodium Chloride 250 mls @ 15 mls/hr 04/17/25 02:20 IV .[id number] PRN Additional IVPB Infusion Lamotrigine 25 mg 04/17/25 10:00 04/17/25 10:23 Lamotrigine 25 Mg Tablet PO 25 mg DAILY RENÉ Administration Latanoprost 1 drp 04/17/25 22:00 Latanoprost 0.005% 1 Bottle OPHTHALMIC QHS RENÉ Levothyroxine Sodium 88 mcg 04/17/25 06:00 04/17/25 05:23 Levothyroxine 88 Mcg Tablet PO 88 mcg [id number] RENÉ Administration Lisinopril 20 mg 04/17/25 10:00 04/17/25 10:22 Lisinopril 20 Mg Tablet PO 20 mg DAILY RENÉ Administration Protocol Loratadine 10 mg 04/17/25 10:00 04/17/25 10:23 Loratadine 10 Mg Tablet PO 10 mg Q48 RENÉ Administration Melatonin 3 mg 04/17/25 01:56 Melatonin 3 Mg Tablet PO QHS PRN PRN INSOMNIA Meloxicam 15 mg 04/17/25 10:00 04/17/25 10:23 Meloxicam 15 Mg Tablet PO 15 mg DAILY RENÉ Administration Ondansetron HCl 4 mg 04/17/25 01:56 Ondansetron 4 Mg/2 Ml Vial IV Q8H PRN PRN NAUSEA/VOMITING Pantoprazole Sodium 40 mg 04/17/25 10:00 04/17/25 10:23 Pantoprazole Sodium 40 Mg Tablet PO 40 mg DAILY RENÉ Administration Paroxetine HCl 40 mg 04/17/25 10:00 04/17/25 10:23 Paroxetine 20 Mg Tablet PO 40 mg DAILY RENÉ Administration Polyethylene Glycol 17 gm 04/17/25 10:00 04/17/25 10:28 Polyethylene Glycol 3350 17 Gm Packet PO 17 gm DAILY RENÉ Administration Senna/Docusate Sodium 2 tablet 04/17/25 01:56 Senna/Docusate Sodium 1 Tablet PO BID PRN PRN Constipation Sodium Chloride 10 - 40 ml 04/17/25 02:20 08/11/25 05:23 0.9% Saline Lock 10 Ml Syringe IV 10 ml UD PRN Administration SALINE FLUSH Timolol Maleate 1 drp 04/17/25 10:00 04/17/25 10:23 Timolol 0.5% 5ml Opth.Btl OPHTHALMIC 1 drp BID RENÉ Administration
--- NOTE | 2025-04-17 15:15 | CASEMGMT ---
Social Work PT/OT evaluations are still pending. OLGA created in [facility] a list of residential facilities, in network w/pt's insurance, in pt's preferred geographic area and complete w/quality and resource use data. DISHA Atkins
--- NOTE | 2025-04-17 16:25 | CHAPLAIN ---
Type of Pastoral Visit _x__ Initial Visit ___ Follow-up Visit ___ On-call Visit ___ General Patient Visit ___ Spiritual Assessment ___ Family Conference ___ Bereavement ___ Rapid Response ___ Code Blue ___ Other (describe below) Pastoral Care Referral From _x__ Patient ___ Family ___ Nurse ___ Physician ___ Mica Plate Layer ___ Continuous Improvement Coach ___ Other (describe below) Sacrament/Intervention _x__ Active listening ___ Anointing ___ Buddhism ___ Bereavement ___ Communion _x__ Annita exploration ___ _x__ Life review _x__ Prayer ___ Reconciliation ___ Sacrament of Sick ___ Supportive presence ___ Wedding ___ Other (describe below) Pastoral Comments patient is welcoming but admits to being unable to sleep and being so tired; 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
[2025-04-17] MEDS: Latanoprost 0.005% 1 Bottle 1 DRP OPHTHALMIC (21:08)
[2025-04-17] MEDS: Aspirin E.C. 81 MG Tablet PO (21:12)
[2025-04-18 05:00] VITALS: BP 119/63; PULSE 63; RESP 16; TEMP 36.7; O2SAT 99
[2025-04-18 06:00] VITALS: BMI 26.9
[2025-04-18 08:00] VITALS: BP 103/68; PULSE 65; RESP 17; TEMP 36.6; O2SAT 96
[2025-04-18] MEDS: BRIMONIDINE 0.2% 5ML BOTTLE 1 DRP OPHTHALMIC ×2 (11:37→21:33)
[2025-04-18] MEDS: Timolol 0.5% 5ML OPTH.BTL 1 DRP OPHTHALMIC ×2 (11:38→21:35)
[2025-04-18 14:00] VITALS: BP 104/65; PULSE 63; RESP 17; TEMP 36.6; O2SAT 96
--- NOTE | 2025-04-18 14:44 | PCM.PN.HOSP ---
Reason for Visit Chief Complaint: Fall, hit head, LOC. Objective Data Objective Data Vital Signs: Vital Signs Temp Pulse Resp BP Pulse Ox O2 Del Method O2 Flow Rate 97.8 F 65 17 103/68 96 Nasal Cannula 2 04/18/25 08:00 04/18/25 08:00 04/18/25 08:00 04/18/25 08:00 04/18/25 08:00 04/18/25 08:02 04/18/25 08:02 Oxygen Flow Rate (L/min) 2 Oxygen Delivery Method Nasal Cannula Weight: 147 lb 4.301 oz Body Mass Index (BMI) 26.9 Intake & Output: Intake and Output for Last 24 Hours 04/16/25 04/17/25 04/18/25 23:59 23:59 23:59 Intake Total 1740 / 1740 300 / 300 Output Total 1700 / 1700 420 / 420 Balance 40 / 40 -120 / -120 Lab / Micro Data 04/17/25 05:42 04/17/25 05:42 Radiography Diagnostic Testing: Radiology Impression Brain MRI 04/17/25 14:30 IMPRESSION: No acute brain abnormalities. Chronic changes which are nonspecific but most likely due to chronic small-vessel ischemia. Reading Location: [facility] Physical Exam Narrative Seen and examined Overall patient is doing well. Headache is less. She is more awake and alert. She had good sleep last night. Admitted with loss of consciousness with fall She had multiple times fall in the past but denies any LOC in the past. Physical exam General: Alert, Oriented x3, Cooperative HEENT: Atraumatic, PERRLA, EOMI, Normocephalic. Oral: No Gingival or Mucosal Lesions/ Ulcerations Neck: Supple, No JVD, Negative Carotid Bruits Chest wall/Lungs: Air entry diminished in bilateral lung bases. No crepitation/rhonchi Cardiovascular: Regular rate and rhythm, Normal S1,S2, No M/G/R Abdomen: Bowel Sounds Present, Soft, Non Tender, Non-Distended : No dysuria. No renal angle tenderness. No suprapubic tenderness. Extremities: No edema, Capillary Refill Less than 3 Seconds Skin: Staple on the back of the head. Musculoskeletal: No Tenderness to Palpation of Joints or Extremities Neurological: Cranial nerves II-XII grossly intact, DTR 2+/4. No acute focal neurological deficit. Psych/Mental Status: Normal Affect, Appropriate. Assessment & Plan Assessment/Plan (1) Frequent falls: PLAN: Plan The patient is an 89 y/o F admitted with unwitnessed mechanical fall on the day of ED presentation, fell forward with CT of the head with not recall of any event with some mild amnesia and loss of consciousness. Laceration at the back of the head generalized headache. Probably, she fell down after getting LOC. She denies any acute instability in lower extremity joints leading to fall. No chest pain pressure or tightness #1. Recurrent mechanical falls with adult failure to thrive with episode of head trauma with LOC with transient amnesia, currently resolved: Exact etiology of fall unclear but seems probably patient lost consciousness and then fell down. Denies acute instability in lower extremity joints. Unclear about the cause of LOC. Patient on baclofen 5 mg twice daily, lorazepam 2 mg nightly. This might be region of her LOC in the fall. She had 6 lázaro placed to the scalp and will need these removed in 1 week/7 days. 04/18: Patient had good sleep. She does not feel or look like confused. Not disoriented. Discussed with the neurologist. Wanted vitamin B12 folate B1. Agree with routine EEG. MRI brain shows no acute abnormalities. PT. Outpatient neurocognitive testing. Patient agreed for SNF. #2. Macrocytic anemia: Admission hemoglobin 10.5, MCV 99.4, baseline hemoglobin noted to vacillate, more recently has been 11-12 however this was greater than 6 months previous to current presentation, #3. Chronic Kidney Disease Stage III,: Admission BUN/Cr 35/1.40, GFR 36, baseline renal function more recently 1.3-1.4 with last noted 11/11/2024 creatinine 1.42, repeat BMP in AM. 04/18: Creatinine improved to 1.1, normal baseline. #4. Anxiety and depression: Will continue patient home paroxetine regimen. Patient is on a significant amount of lorazepam noted to be 2 mg nightly, given advanced age this may be significantly contributing to her fall risk. Given recent amnesic event will temporarily hold and may need to restart back at a lower dose and then wean off outpatient. #5. Hypertension: Continue home regimen including lisinopril, Lasix with hold parameters as needed although orthostatics are negative of note, PRN hydralazine. #6. Hyperlipidemia: Not on statin #7. OA, chronic pain: Patient is on significant mount as noted nightly Ativan specifically 2 mg in addition to being on baclofen 5 mg p.o. twice daily as a muscle relaxer and unfortunately these items are very sedated and likely contributing to her falls, will temporarily hold but may need to resume at a lower dose and weaned off outpatient. #8. Chronic asthma with allergic rhinitis: Continue ATC budesonide therapy, as needed albuterol, encourage head of bed and I-S, will continue patient home loratadine regimen. 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 #10. History SSS: Status post pacemaker placement, encourage continued follow-up and interrogation outpatient as previously arranged. #11. Former tobacco use: Encouraged continued tobacco cessation. #12. Hypothyroidism: continue patient on levothyroxine regimen. #13. GERD: New patient on PPI. #14. JADIEL: Patient does not use any PAP therapy, uses 2 L NC nightly. #15. DVT prophylaxis: Heparin. #16. CODE status: Patient HCPOA is her brother primary and secondary is her daughter and living will is currently in place. Discussed CODE status at length including difference between FULL code, DNR-CCA and DNR-CC status. Following discussions about the differences in these status, requested DNR CCA, clarified further with examples and patient determined with intubation. Charges/Coding Visit Charges Inpatient E&M: 86551 Subs Hosp L2
--- NOTE | 2025-04-18 15:25 | CASEMGMT ---
Social Work Reviewed and noted therapy evaluations indicating recommendation for additional therapy at discharge out of a rehab/TCU/[facility] level of care. Met with patient, introducing to self and social work role. Patient spontaneously shared that she has been having shaking legs and feels that her mobility is not where it needs to be. Introduced the idea of [place] [facility] [place], which patient is agreeable with as long as this is short-term. Patient is thinking about a 2-week timeframe. Educated to Medicare 3 midnight roll in order to get skilled coverage under Medicare versus private pain if a 3 midnight stay is not obtained. Reviewed approximate cost per night of the [place] [facility] [place] and patient indicates could manage for a short time to pay privately if needed. Provided patient with a choice list for patient's insurance network, geographical region, including Medicare quality and star data. Wrote down approximate cost for respective facilities in [facility] so patient could compare should patient discharge before receiving a qualifying stay. Patient would like to review list and potentially discuss with family. timber mill worker agrees to check back with patient on 04/19/2025 for choices. Plan: Anticipate short-term [place] [facility] [place] level of care. -DISHA Mg, PORTABLE MACHINE SANDER *This note was generated with [employer] dictation software. It may contain incorrect words, spelling, and punctuation that were not noted in review of the chart prior to signing*
[2025-04-18 17:56] VITALS: BP 100/52; PULSE 60; RESP 17; TEMP 37.1; O2SAT 98
[2025-04-18 19:42] LABS: FOLATES,SERUM (FOLIC ACID) 16.10 ng/mL (4.60-34.80)
[2025-04-18 19:43] LABS: Vitamin B12 1790 pg/mL (180-914)
[2025-04-18 21:19] VITALS: BP 129/90; PULSE 75; RESP 18; TEMP 35.8; O2SAT 95
[2025-04-18] MEDS: Latanoprost 0.005% 1 Bottle 1 DRP OPHTHALMIC (21:36)
[2025-04-18] MEDS: Aspirin E.C. 81 MG Tablet PO (21:38)
[2025-04-19 03:14] VITALS: BP 93/55; PULSE 62; RESP 18; TEMP 36.6; O2SAT 99
[2025-04-19 05:13] VITALS: BMI 26.6
[2025-04-19 06:07] LABS: Hematocrit 33.2 % (37-47); Hemoglobin 10.4 g/dL (12.0-15.0); Immature Granulocytes Count 0.030 X10^3/uL (0.0-0.0); Mean Corp Hgb Conc 31.3 g/dL (32-36); Mean Corpuscular Volume 99.7 fL (81-99); Mean Platelet Vol. 10.3 fl (6.2-12.0); NRBC Flagged by Analyzer 0 % (0-5); Platelet Count 206 K/mm3 (150-450); RBC Distribution Width CV 14.7 % (11.6-14.6); RBC Distribution Width SD 54.4 fl (35.1-43.9); Red Blood Count 3.33 M/mm3 (4.2-5.4); White Blood Count 8.0 K/mm3 (4.4-11.0)
[2025-04-19 06:29] LABS: Anion Gap 7 (5-15); BUN 35 mg/dL (4-19); BUN/Creat Ratio 30.0 RATIO (10-20); Calcium,Total 9.0 mg/dL (7.6-11.0); Carbon Dioxide 25.3 mmol/L (21.0-32.0); Chloride 108 mmol/L (98-108); Estimated Creatinine Clearance 29.37 ml/min (50-250); Glucose 93 mg/dL (70-99); Potassium 4.5 mmol/L (3.3-5.1)
[2025-04-19 08:22] VITALS: BP 133/64; PULSE 63; RESP 18; TEMP 36.7; O2SAT 100
[2025-04-19] MEDS: BRIMONIDINE 0.2% 5ML BOTTLE 1 DRP OPHTHALMIC ×2 (08:23→21:19)
[2025-04-19] MEDS: Timolol 0.5% 5ML OPTH.BTL 1 DRP OPHTHALMIC ×2 (08:23→21:20)
[2025-04-19 08:25] VITALS: O2SAT 100
[2025-04-19] MEDS: Thiamine Hydrochloride 100 MG Tablet PO (08:25)
[2025-04-19] MEDS: Polyethylene Glycol 3350 17 GM PACKET PO (08:28)
--- NOTE | 2025-04-19 13:35 | CASEMGMT ---
DIONTE LOPES NOTE: DIONTE LOPES to room. Pt states she has reviewed the SNF list. The following are her preferences: 1) [facility] 2) [facility] [address]) [facility] 4) [facility] RN, CM
--- NOTE | 2025-04-19 14:20 | CASEMGMT ---
Social Work- SW received notice that pt would like referral to TCU as FOC. Pt alternate selections are [facility], followed by [facility]. SW completed referral to TCU. SW remains available to follow. ANGELA Gordon
--- NOTE | 2025-04-19 15:30 | PN.HOSP_ITS ---
Reason for Visit Chief Complaint: Fall, hit head, LOC. Objective Data Objective Data Vital Signs: Vital Signs Temp Pulse Resp BP Pulse Ox O2 Del Method O2 Flow Rate 98.1 F 63 18 133/64 H 100 Nasal Cannula 2 04/19/25 08:22 04/19/25 08:22 04/19/25 08:22 04/19/25 08:22 04/19/25 08:25 04/19/25 08:25 04/19/25 08:25 Oxygen Flow Rate (L/min) 2 Oxygen Delivery Method Nasal Cannula Weight: 145 lb 8 oz Body Mass Index (BMI) 26.6 Intake & Output: Intake and Output for Last 24 Hours 04/17/25 04/18/25 04/19/25 23:59 23:59 23:59 Intake Total 1740 / 1740 740 / 740 480 / 480 Output Total 1700 / 1700 420 / 420 700 / 700 Balance 40 / 40 320 / 320 -220 / -220 Lab / Micro Data 04/19/25 05:48 04/19/25 05:48 Labs: Laboratory Results - last 24 hr 04/18/25 16:09: Vitamin B12 1790 H, Serum Folate 16.10 04/19/25 05:48: WBC 8.0, RBC 3.33 L, Hgb 10.4 L, Hct 33.2 L, MCV 99.7 H, MCH 31.2, MCHC 31.3 L, RDW Std Deviation 54.4 H, RDW Coeff of Dave 14.7 H, Plt Count 206, MPV 10.3, Immature Gran % (Auto) 0.400, Neut % (Auto) 52.5, Lymph % (Auto) 28.1, Boone % (Auto) 10.7 H, Eos % (Auto) 7.5 H, Baso % (Auto) 0.8, Absolute Neuts (auto) 4.2, Absolute Lymphs (auto) 2.24, Nucleated RBC % 0, Sodium 140, Potassium 4.5, Chloride 108, Carbon Dioxide 25.3, Anion Gap 7, BUN 35 H, Creatinine 1.18, Estim Creat Clear Calc 29.37 L, Est GFR (MDRD) Non-Af 44 L, B UN/Creatinine Ratio 30.0 H, Glucose 93, Calcium 9.0 Physical Exam Narrative Seen and examined No acute issues. Headache has resolved. Pending pre-CERT. Admitted with loss of consciousness with fall She had multiple times fall in the past but denies any LOC in the past. Physical exam General: Alert, Oriented x3, Cooperative HEENT: Atraumatic, PERRLA, EOMI, Normocephalic. Oral: No Gingival or Mucosal Lesions/ Ulcerations Neck: Supple, No JVD, Negative Carotid Bruits Chest wall/Lungs: Air entry diminished in bilateral lung bases. No crepitation/rhonchi Cardiovascular: Regular rate and rhythm, Normal S1,S2, No M/G/R Abdomen: Bowel Sounds Present, Soft, Non Tender, Non-Distended : No dysuria. No renal angle tenderness. No suprapubic tenderness. Extremities: No edema, Capillary Refill Less than 3 Seconds Skin: Staple on the back of the head. Musculoskeletal: No Tenderness to Palpation of Joints or Extremities Neurological: Cranial nerves II-XII grossly intact, DTR 2+/4. No acute focal neurological deficit. Psych/Mental Status: Normal Affect, Appropriate. Assessment & Plan Assessment/Plan (1) Frequent falls: PLAN: Plan The patient is an 89 y/o F admitted with unwitnessed mechanical fall on the day of ED presentation, fell forward with CT of the head with not recall of any event with some mild amnesia and loss of consciousness. Laceration at the back of the head generalized headache. Probably, she fell down after getting LOC. She denies any acute instability in lower extremity joints leading to fall. No chest pain pressure or tightness #1. Recurrent mechanical falls with adult failure to thrive with episode of head trauma with LOC with transient amnesia, currently resolved: Exact etiology of fall unclear but seems probably patient lost consciousness and then fell down. Denies acute instability in lower extremity joints. Unclear about the cause of LOC. Patient on baclofen 5 mg twice daily, lorazepam 2 mg nightly. This might be region of her LOC in the fall. She had 6 lázaro placed to the scalp and will need these removed in 1 week/7 days. 04/18: Patient had good sleep. She does not feel or look like confused. Not disoriented. Discussed with the neurologist. Wanted vitamin B12 folate B1. Agree with routine EEG. MRI brain shows no acute abnormalities. PT. Outpatient neurocognitive testing. Patient agreed for SNF. 04/19: B12 level came high 1790 therefore B12 supplement discontinued. Folic acid normal. Thiamine level pending. Routine EEG was normal in wakefulness. #2. Macrocytic anemia: Admission hemoglobin 10.5, MCV 99.4, baseline hemoglobin noted to vacillate, more recently has been 11-12 however this was greater than 6 months previous to current presentation, #3. Chronic Kidney Disease Stage III,: Admission BUN/Cr 35/1.40, GFR 36, baseline renal function more recently 1.3-1.4 with last noted 11/11/2024 creatinine 1.42, repeat BMP in AM. 04/18: Creatinine improved to 1.1, normal baseline. #4. Anxiety and depression: Will continue patient home paroxetine regimen. Patient is on a significant amount of lorazepam noted to be 2 mg nightly, given advanced age this may be significantly contributing to her fall risk. Given recent amnesic event will temporarily hold and may need to restart back at a lower dose and then wean off outpatient. #5. Hypertension: Continue home regimen including lisinopril, Lasix with hold parameters as needed although orthostatics are negative of note, PRN hydralazine. #6. Hyperlipidemia: Not on statin #7. OA, chronic pain: Patient is on significant mount as noted nightly Ativan specifically 2 mg in addition to being on baclofen 5 mg p.o. twice daily as a muscle relaxer and unfortunately these items are very sedated and likely contributing to her falls, will temporarily hold but may need to resume at a lower dose and weaned off outpatient. #8. Chronic asthma with allergic rhinitis: Continue ATC budesonide therapy, as needed albuterol, encourage head of bed and I-S, will continue patient home loratadine regimen. 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 #10. History SSS: Status post pacemaker placement, encourage continued follow- up and interrogation outpatient as previously arranged. #11. Former tobacco use: Encouraged continued tobacco cessation. #12. Hypothyroidism: continue patient on levothyroxine regimen. #13. GERD: New patient on PPI. #14. JADIEL: Patient does not use any PAP therapy, uses 2 L NC nightly. #15. DVT prophylaxis: Heparin. #16. CODE status: Patient HCPOA is her brother primary and secondary is her daughter and living will is currently in place. Discussed CODE status at length including difference between FULL code, DNR-CCA and DNR-CC status. Following discussions about the differences in these status, requested DNR CCA, clarified further with examples and patient determined with intubation. Charges/Coding Visit Charges Inpatient E&M: 84058 Subs Hosp L2
[2025-04-19 16:30] VITALS: BP 95/81; PULSE 72; RESP 20; TEMP 36.5; O2SAT 94
[2025-04-19 20:29] VITALS: BP 113/59; PULSE 61; RESP 14; TEMP 35.9; O2SAT 95
[2025-04-19 20:35] VITALS: PULSE 60; RESP 16; O2SAT 94
[2025-04-19] MEDS: Budesonide Respules 0.5 MG/2 ML AMPUL.NEB. INHALATION (20:35)
[2025-04-19] MEDS: Aspirin E.C. 81 MG Tablet PO (21:19)
[2025-04-19] MEDS: Latanoprost 0.005% 1 Bottle 1 DRP OPHTHALMIC (21:19)
[2025-04-19] MEDS: 0.9% Saline Lock 10 ML Syringe IV (21:19)
[2025-04-20 03:04] VITALS: BP 102/54; PULSE 65; RESP 16; TEMP 37; O2SAT 98
[2025-04-20 03:50] VITALS: BMI 27.3
[2025-04-20] MEDS: Budesonide Respules 0.5 MG/2 ML AMPUL.NEB. INHALATION (06:31)
[2025-04-20 06:32] VITALS: PULSE 64; RESP 16; O2SAT 94
[2025-04-20 07:25] LABS: Hematocrit 33.1 % (37-47); Hemoglobin 10.2 g/dL (12.0-15.0); Immature Granulocytes Count 0.070 X10^3/uL (0.0-0.0); Mean Corp Hgb Conc 30.8 g/dL (32-36); Mean Corpuscular Volume 100.9 fL (81-99); Mean Platelet Vol. 10.8 fl (6.2-12.0); NRBC Flagged by Analyzer 0 % (0-5); Platelet Count 221 K/mm3 (150-450); RBC Distribution Width CV 14.6 % (11.6-14.6); RBC Distribution Width SD 54.4 fl (35.1-43.9); Red Blood Count 3.28 M/mm3 (4.2-5.4); White Blood Count 8.9 K/mm3 (4.4-11.0)
[2025-04-20 07:57] LABS: Anion Gap 8 (5-15); BUN 33 mg/dL (4-19); BUN/Creat Ratio 30.1 RATIO (10-20); Calcium,Total 9.2 mg/dL (7.6-11.0); Carbon Dioxide 24.8 mmol/L (21.0-32.0); Chloride 106 mmol/L (98-108); Estimated Creatinine Clearance 31.89 ml/min (50-250); Glucose 99 mg/dL (70-99); Potassium 4.7 mmol/L (3.3-5.1)
[2025-04-20 09:17] VITALS: BP 117/58; PULSE 64; RESP 18; TEMP 37.1; O2SAT 98
[2025-04-20] MEDS: BRIMONIDINE 0.2% 5ML BOTTLE 1 DRP OPHTHALMIC (09:18)
[2025-04-20] MEDS: Timolol 0.5% 5ML OPTH.BTL 1 DRP OPHTHALMIC (09:19)
[2025-04-20] MEDS: Thiamine Hydrochloride 100 MG Tablet PO (09:22)
--- NOTE | 2025-04-20 10:42 | PCM.TXEXTCAR ---
Diet Diet Order/Speech Therapy: INPATIENT Hospital Diet / Speech Therapy Order(s) 04/17/25 01:56 Diet: Cardiac - Heart Healthy Food consistency:: Regular Liquid Consistency:: Regular/Thin Routine Orders/Code Status Suppository Type: Dulcolax 10mg Suppository Frequency: Daily PRN DC O2, CPAP, BIPAP needs Home O2 Discharge instructions: No Wound(s) Back Of Head: Wound Type: Laceration Therapies Extremity Affected:: Bilateral Lower Physical Therapy: Eval and Treat Occupational Therapy: Eval and Treat Speech Therapy: Eval and Treat Problem/Diagnosis (1) Frequent falls: Status: Acute Code(s): R29.6 - Repeated falls Plan The patient is an 89 y/o F admitted with unwitnessed mechanical fall on the day of ED presentation, fell forward with CT of the head with not recall of any event with some mild amnesia and loss of consciousness. Laceration at the back of the head generalized headache. Probably, she fell down after getting LOC. She denies any acute instability in lower extremity joints leading to fall. No chest pain pressure or tightness #1. Recurrent mechanical falls with adult failure to thrive with episode of head trauma with LOC with transient amnesia, currently resolved: Exact etiology of fall unclear but seems probably patient lost consciousness and then fell down. Denies acute instability in lower extremity joints. Unclear about the cause of LOC. Patient on baclofen 5 mg twice daily, lorazepam 2 mg nightly. This might be region of her LOC in the fall. She had 6 lázaro placed to the scalp and will need these removed in 1 week/7 days. 04/18: Patient had good sleep. She does not feel or look like confused. Not disoriented. Discussed with the neurologist. Wanted vitamin B12 folate B1. Agree with routine EEG. MRI brain shows no acute abnormalities. PT. Outpatient neurocognitive testing. Patient agreed for SNF. 04/19: B12 level came high 1790 therefore B12 supplement discontinued. Folic acid normal. Thiamine level pending. Routine EEG was normal in wakefulness. #2. Macrocytic anemia: Admission hemoglobin 10.5, MCV 99.4, baseline hemoglobin noted to vacillate, more recently has been 11-12 however this was greater than 6 months previous to current presentation, #3. Chronic Kidney Disease Stage III,: Admission BUN/Cr 35/1.40, GFR 36, baseline renal function more recently 1.3-1.4 with last noted 11/11/2024 creatinine 1.42, repeat BMP in AM. 04/18: Creatinine improved to 1.1, normal baseline. #4. Anxiety and depression: Will continue patient home paroxetine regimen. Patient is on a significant amount of lorazepam noted to be 2 mg nightly, given advanced age this may be significantly contributing to her fall risk. Given recent amnesic event will temporarily hold and may need to restart back at a lower dose and then wean off outpatient. #5. Hypertension: Continue home regimen including lisinopril, Lasix with hold parameters as needed although orthostatics are negative of note, PRN hydralazine. #6. Hyperlipidemia: Not on statin #7. OA, chronic pain: Patient is on significant mount as noted nightly Ativan specifically 2 mg in addition to being on baclofen 5 mg p.o. twice daily as a muscle relaxer and unfortunately these items are very sedated and likely contributing to her falls, will temporarily hold but may need to resume at a lower dose and weaned off outpatient. #8. Chronic asthma with allergic rhinitis: Continue ATC budesonide therapy, as needed albuterol, encourage head of bed and I-S, will continue patient home loratadine regimen. 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 #10. History SSS: Status post pacemaker placement, encourage continued follow-up and interrogation outpatient as previously arranged. #11. Former tobacco use: Encouraged continued tobacco cessation. #12. Hypothyroidism: continue patient on levothyroxine regimen. #13. GERD: New patient on PPI. #14. JADIEL: Patient does not use any PAP therapy, uses 2 L NC nightly. #15. DVT prophylaxis: Heparin. #16. CODE status: Patient HCPOA is her brother primary and secondary is her daughter and living will is currently in place. Discussed CODE status at length including difference between FULL code, DNR-CCA and DNR-CC status. Following discussions about the differences in these status, requested DNR CCA, clarified further with examples and patient determined with intubation. Allergies/Procedures Done in Hospital Allergies ciprofloxacin (From Cipro) Allergy (Verified 04/17/25 02:22) Itching diphenhydramine (From Benadryl) Allergy (Verified 04/17/25 02:22) Rash Penicillins Allergy (Verified 04/17/25 02:22) Hives shellfish derived Allergy (Verified 04/17/25 02:22) Anaphylaxis Sulfa (Sulfonamide Antibiotics) Allergy (Verified 04/17/25 02:22) Upset Stomach tiotropium (From Spiriva with HandiHaler) Allergy (Verified 04/17/25 02:22) Other ketamine Adverse Reaction (Verified 04/17/25 02:22) hallucinations Type of Care/Length of Stay Estimated LOS: Convalescent Care Less Than 30 days Type of Care Needed: Skilled Rehab Potential: Good Prognosis: Good Additional Orders/Day of Discharge Day of Discharge: 04/20/25 Dietary and Speech Recommendations Dietitian Recommendations/Changes: Will continue liberalized regular diet with consistency/texture as per LITHOGRAPHIC PHOTOGRAPHER APPRENTICE. Will continue 120mL ensure plus HP 4 times per day w/ medpass. Monitor blood glucose level and restrict dietary carbohydrate as needed. Trend weights closely and adjust ONS as needed to optimize nutrition and prevent energy/pro depletion. Discharge Plan Admission Admit Date/Time: 04/17/25 12:01 Attending Provider: Sean Rizvi Primary Care Provider: Ken Contreras Consulting Providers: Idalia Marti; Campos Smith; Nelda Leon; Mariama Santos; Hansel Vidal; Scott Yung; Gilberto Rojas; ATILIO JEFFERY; Monse Pacheco; Yolande Li; Elvin Flower; Valery Hunt Discharge Orders/Prescriptions Prescriptions: New tizanidine 2 mg Tablet 2 mg PO Q8H PRN PRN (Reason: muscle spasm) Qty: 0 0RF trazodone 50 mg Tablet 50 mg PO QHS Qty: 0 0RF sennosides-docusate sodium [Stimulant Laxative Plus] 8.6-50 mg Tablet 2 tab PO BID PRN PRN (Reason: Constipation) Qty: 0 0RF thiamine HCl (vitamin B1) 100 mg Tablet 100 mg PO BREAKFAST Qty: 0 0RF lorazepam 0.5 mg Tablet 0.25 mg PO BID Qty: 0 0RF Rx Instructions: Taper 0.25 mg twice daily for 3 days and then 0.25 mg daily for 3 days and then stop Continued albuterol sulfate 2.5 mg /3 mL (0.083 %) solution for nebulization 2.5 mg INHALATION Q4H PRN (Reason: Sob &/Or Wheezing) Combigan 0.2-0.5 % drops 1 drp ophthalmic (eye) BID ketotifen fumarate 0.025 % (0.035 %) drops 1 drp ophthalmic (eye) BID Rx Instructions: administer at least 8 hours apart latanoprost 0.005 % drops, emulsion 1 drp ophthalmic (eye) QPM pantoprazole 20 mg tablet,delayed release (DR/EC) 40 mg PO DAILY loratadine [Claritin] 10 mg tablet 10 mg PO PRN Gemtesa 75 mg tablet 75 mg PO DAILY albuterol sulfate 90 mcg/actuation HFA aerosol inhaler 1 - 2 puff INHALATION Q4H PRN PRN (Reason: Shortness Of Breath) Qty: 18 6RF ascorbic acid (vitamin C) 250 mg tablet 250 mg PO BID Adult 50 Plus Probiotic 4 billion cell capsule 4,000 mmu cells PO DAILY Rx Instructions: administer with a meal lisinopril 20 mg tablet 20 mg PO DAILY Qty: 90 3RF multivitamin 1 EACH tablet 1 tab PO DAILY Patient Comments: supplement acetaminophen 325 MG tablet 650 mg PO QHS Patient Comments: pain paroxetine HCl 10 MG tablet 40 mg PO DAILY Patient Comments: anxiety/depression ergocalciferol (vitamin D2) 1,250 mcg (50,000 unit) capsule 50,000 unit PO QMONTH Patient Comments: Next dose Thursday levothyroxine 88 mcg tablet 88 mcg PO .COMPLEX Patient Comments: hypothyroidism Rx Instructions: 88 mcg PO MOTUWETHFR; polyethylene glycol 3350 17 GM packet 17 gm PO PRN aspirin 81 MG tablet 81 mg PO QHS lamotrigine 25 MG tablet extended release 24hr 25 mg PO DAILY furosemide 20 mg tablet 10 mg PO QAM nitrofurantoin monohyd/m-cryst [Macrobid] 100 mg capsule 100 mg PO BID 3 Days Qty: 6 0RF Rx Instructions: must administer with a meal/food fluticasone furoate-vilanterol [Breo Ellipta] 100-25 mcg/dose blister with device 1 inh inhalation DAILY Qty: 60 6RF estradiol 0.01 % (0.1 mg/gram) cream 1 g vaginal 3XW 90 Days Qty: 42.5 3RF Discontinued cyanocobalamin (vitamin B-12) 1,000 MCG tablet 1,000 mcg PO DAILY Patient Comments: supplement baclofen 10 MG tablet 5 mg PO BID Patient Comments: muscle spasms lorazepam 1 mg tablet 2 mg PO QHS Patient Comments: anxiety/sleep meloxicam 15 mg tablet 15 mg PO DAILY doxycycline hyclate 100 mg capsule 100 mg PO BID Referrals / Follow Up: Ken Contreras MD [Primary Care Provider] - Disposition Discharge Orders: Discharge Patient (Routine); Ordered 04/20/25 Ordered By: Dr. Sean Rizvi
--- NOTE | 2025-04-20 12:28 | PCM.DC.SUM ---
Providers Date of Admission: 04/17/25 Date of Discharge: 04/20/25 Primary Care Physician: Dr. Ken Contreras MD Consultations 04/17/25 09:39 neuro [Consult: Tele-Neurology] Routine Consulting Provider: [facility] Reason for Consult: Fall with LOC. first time LOC. LW in back of head EMERGENT Consult: No MD Notified: Yes Date Notified: 04/17/25 Time Notified: 12:08 Method of Notification: [facility] Service Nursing Unit Staff Notify [facility] of Tele-Neurology Consult: Yes Reason For Visit: FALLS, ADULT FTT Diagnosis Discharge Diagnosis (1) Frequent falls: Status: Acute Code(s): R29.6 - Repeated falls Plan The patient is an 89 y/o F admitted with unwitnessed mechanical fall on the day of ED presentation, fell forward with CT of the head with not recall of any event with some mild amnesia and loss of consciousness. Laceration at the back of the head generalized headache. Probably, she fell down after getting LOC. She denies any acute instability in lower extremity joints leading to fall. No chest pain pressure or tightness #1. Recurrent mechanical falls with adult failure to thrive with episode of head trauma with LOC with transient amnesia, currently resolved: Exact etiology of fall unclear but seems probably patient lost consciousness and then fell down. Denies acute instability in lower extremity joints. Unclear about the cause of LOC. Patient on baclofen 5 mg twice daily, lorazepam 2 mg nightly. This might be region of her LOC in the fall. She had 6 lázaro placed to the scalp and will need these removed in 1 week/7 days. 04/18: Patient had good sleep. She does not feel or look like confused. Not disoriented. Discussed with the neurologist. Wanted vitamin B12 folate B1. Agree with routine EEG. MRI brain shows no acute abnormalities. PT. Outpatient neurocognitive testing. Patient agreed for SNF. 04/19: B12 level came high 1790 therefore B12 supplement discontinued. Folic acid normal. Thiamine level pending. Routine EEG was normal in wakefulness. Ativan taper ordered. Will need follow with psychiatrist 04/20: Patient already on B12 supplement at home therefore discontinued on on discharge. #2. Macrocytic anemia: Admission hemoglobin 10.5, MCV 99.4, baseline hemoglobin noted to vacillate, more recently has been 11-12 however this was greater than 6 months previous to current presentation, #3. Chronic Kidney Disease Stage III,: Admission BUN/Cr 35/1.40, GFR 36, baseline renal function more recently 1.3-1.4 with last noted 11/11/2024 creatinine 1.42, repeat BMP in AM. 04/18: Creatinine improved to 1.1, normal baseline. 04/20, patient was started on antibiotic as an outpatient with Dr. Hansen on 04/14. Currently she has 3 more days of left, nitrofurantoin 100 mg bid. #4. Anxiety and depression: continue patient home paroxetine regimen. Patient is on a significant amount of lorazepam noted to be 2 mg nightly, given advanced age this may be significantly contributing to her fall risk. Given recent amnesic event will temporarily hold and may need to restart back at a lower dose and then wean off outpatient. 04/20: On tapering dose of alprazolam and finally wean off #5. Hypertension: Continue home regimen including lisinopril, Lasix with hold parameters as needed although orthostatics are negative of note, PRN hydralazine. #6. Hyperlipidemia: Not on statin #7. OA, chronic pain: Patient is on significant mount as noted nightly Ativan specifically 2 mg in addition to being on baclofen 5 mg p.o. twice daily as a muscle relaxer and unfortunately these items are very sedated and likely contributing to her falls, will temporarily hold but may need to resume at a lower dose and weaned off outpatient. #8. Chronic asthma with allergic rhinitis: Continue ATC budesonide therapy, as needed albuterol, encourage head of bed and I-S, will continue patient home loratadine regimen. She completed 10 days course of doxycycline that was started as an outpatient. 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 #10. History SSS: Status post pacemaker placement, encourage continued follow-up and interrogation outpatient as previously arranged. #11. Former tobacco use: Encouraged continued tobacco cessation. #12. Hypothyroidism: continue patient on levothyroxine regimen. #13. GERD: New patient on PPI. #14. JADIEL: Patient does not use any PAP therapy, uses 2 L NC nightly. #15. DVT prophylaxis: Heparin. #16. CODE status: Patient HCPOA is her brother primary and secondary is her daughter and living will is currently in place. Discussed CODE status at length including difference between FULL code, DNR-CCA and DNR-CC status. Following discussions about the differences in these status, requested DNR CCA, clarified further with examples and patient determined with intubation. Discharge medication reconciliation done. Discharge follow-up instructions completed. Discharge process discussed with the patient and all questions were answered to patient's satisfaction. Follow with PCP in 1 to 2 weeks Total time spent, exact 35 minutes on discharge meds reconciliation, examination, coordination of care with nurses and ancillary staff, review of imaging and blood test and discussion with the patient on follow-up instructions. Medications at Discharge Home Medications acetaminophen 325 mg tablet 650 mg PO QHS pain 11/17/16 multivitamin 1 tab PO DAILY vitamin 11/17/16 paroxetine HCl 10 mg tablet 40 mg PO DAILY mental health 11/17/16 polyethylene glycol 3350 17 gram oral powder packet 17 gm PO PRN constipation 05/27/17 aspirin 81 mg tablet,delayed release 81 mg PO QHS heart health 11/27/17 lamotrigine 25 mg tablet,extended release 24 hr 25 mg PO DAILY 11/27/17 loratadine 10 mg tablet (Claritin) 10 mg PO PRN allergies 12/27/20 albuterol sulfate 2.5 mg/3 mL (0.083 %) solution for nebulization 2.5 mg inhalation Q4H PRN Sob &/Or Wheezing 01/10/21 brimonidine 0.2 %-timolol 0.5 % eye drops (Combigan) 1 drp ophthalmic (eye) BID eye health 01/10/21 ketotifen fumarate 0.025 % (0.035 %) eye drops 1 drp ophthalmic (eye) BID eye health 01/10/21 latanoprost 0.005 % eye drops, emulsion 1 drp ophthalmic (eye) QPM eye health 01/10/21 pantoprazole 20 mg tablet,delayed release 40 mg PO DAILY reflux 01/10/21 vibegron 75 mg tablet (Gemtesa) 75 mg PO DAILY 08/07/21 albuterol sulfate 90 mcg/actuation aerosol inhaler 1 - 2 puff inhalation Q4H PRN PRN Shortness Of Breath #18 grams 02/11/22 ascorbic acid (vitamin C) 250 mg tablet 250 mg PO BID 08/19/22 lactobacillus combination no.9 4 billion cell capsule (Adult 50 Plus Probiotic) 4,000 mmu cells PO DAILY 08/19/22 ergocalciferol (vitamin D2) 1,250 mcg (50,000 unit) capsule 50,000 unit PO QMONTH vitamin 09/10/22 levothyroxine 88 mcg tablet 88 mcg PO .COMPLEX thyroid 07/01/24 fluticasone furoate 100 mcg-vilanterol 25 mcg/dose inhalation powder (Breo Ellipta) 1 inh inhalation DAILY #60 ea 08/22/24 lisinopril 20 mg tablet 20 mg PO DAILY blood pressure #90 tabs 03/31/25 estradiol 0.01% (0.1 mg/gram) vaginal cream 1 g vaginal 3XW 3 months #42.5 grams 04/14/25 furosemide 20 mg tablet 10 mg PO QAM Diuretic 04/17/25 lorazepam 0.5 mg tablet 0.25 mg (1/2 x 0.5 mg) PO BID #0 tabs 04/20/25 nitrofurantoin monohydrate/macrocrystals 100 mg capsule (Macrobid) 100 mg PO BID 3 days #6 caps 04/20/25 sennosides 8.6 mg-docusate sodium 50 mg tablet (Stimulant Laxative Plus) 2 tab PO BID PRN PRN Constipation #0 tabs 04/20/25 thiamine HCl (vitamin B1) 100 mg tablet 100 mg PO BREAKFAST #0 tabs 04/20/25 tizanidine 2 mg tablet 2 mg PO Q8H PRN PRN muscle spasm #0 tabs 04/20/25 trazodone 50 mg tablet 50 mg PO QHS #0 tabs 04/20/25 Physical Exam Narrative Seen and examined No acute issues. Pre-CERT received for TCU. Going to be transferred there. Patient was admitted with loss of consciousness with fall. Problem in walking/weakness/imbalance. She had multiple times fall in the past but denies any LOC in the past. Physical exam General: Alert, Oriented x3, Cooperative HEENT: Atraumatic, PERRLA, EOMI, Normocephalic. Oral: No Gingival or Mucosal Lesions/ Ulcerations Neck: Supple, No JVD, Negative Carotid Bruits Chest wall/Lungs: Air entry diminished in bilateral lung bases. No crepitation/rhonchi Cardiovascular: Regular rate and rhythm, Normal S1,S2, No M/G/R Abdomen: Bowel Sounds Present, Soft, Non Tender, Non-Distended : No dysuria. No renal angle tenderness. No suprapubic tenderness. Extremities: No edema, Capillary Refill Less than 3 Seconds Skin: Staple on the back of the head. Musculoskeletal: No Tenderness to Palpation of Joints or Extremities Neurological: Cranial nerves II-XII grossly intact, DTR 2+/4. No acute focal neurological deficit. Psych/Mental Status: Normal Affect, Appropriate. Weight / BMI Weight Weight: 149 lb 4.047 oz Body Mass Index (BMI) 27.3 ABG / Lab / Microbiology Data 04/20/25 06:38 04/20/25 06:38 Laboratory: Laboratory Results - last 24 hr 04/20/25 06:38: WBC 8.9, RBC 3.28 L, Hgb 10.2 L, Hct 33.1 L, MCV 100.9 H, MCH 31.1, MCHC 30.8 L, RDW Std Deviation 54.4 H, RDW Coeff of Dave 14.6, Plt Count 221, MPV 10.8, Immature Gran % (Auto) 0.800, Neut % (Auto) 56.1, Lymph % (Auto) 24.7, Beltrami % (Auto) 11.7 H, Eos % (Auto) 6.0 H, Baso % (Auto) 0.7, Absolute Neuts (auto) 5.0, Absolute Lymphs (auto) 2.19, Nucleated RBC % 0, Sodium 139, Potassium 4.7, Chloride 106, Carbon Dioxide 24.8, Anion Gap 8, BUN 33 H, Creatinine 1.10, Estim Creat Clear Calc 31.89 L, Est GFR (MDRD) Non-Af 48 L, BUN/Creatinine Ratio 30.1 H, Glucose 99, Calcium 9.2 D/C Instructions DC O2, CPAP, BIPAP Needs Home O2 Discharge instructions: No Meaningful Use Info Meaningful Use Meaningful Use Diagnoses (Choose all that apply): None applicable Discharge Plan Admission Admit Date/Time: 04/17/25 12:01 Primary Reason for Your Visit: Multiple fall Attending Provider: Sean Rizvi Primary Care Provider: Ken Contreras Consulting Providers: Idalia Marti; Campos Smith; Nelda Leon; Mariama Santos; Hansel Vidal; Scott Yung; Gilberto Rojas; ATILIO JEFFERY; Monse Pacheco; Yolande Li; Elvin Flower; Valery Hunt Instructions Additional Instructions / Restrictions: She 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 Ortega. Advised to follow-up within a month. Need to lázaro out after 6 days of ED on 04/17 Discharge Orders/Prescriptions Prescriptions: New tizanidine 2 mg Tablet 2 mg PO Q8H PRN PRN (Reason: muscle spasm) Qty: 0 0RF trazodone 50 mg Tablet 50 mg PO QHS Qty: 0 0RF sennosides-docusate sodium [Stimulant Laxative Plus] 8.6-50 mg Tablet 2 tab PO BID PRN PRN (Reason: Constipation) Qty: 0 0RF thiamine HCl (vitamin B1) 100 mg Tablet 100 mg PO BREAKFAST Qty: 0 0RF lorazepam 0.5 mg Tablet 0.25 mg PO BID Qty: 0 0RF Rx Instructions: Taper 0.25 mg twice daily for 3 days and then 0.25 mg daily for 3 days and then stop Continued albuterol sulfate 2.5 mg /3 mL (0.083 %) solution for nebulization 2.5 mg INHALATION Q4H PRN (Reason: Sob &/Or Wheezing) Combigan 0.2-0.5 % drops 1 drp ophthalmic (eye) BID ketotifen fumarate 0.025 % (0.035 %) drops 1 drp ophthalmic (eye) BID Rx Instructions: administer at least 8 hours apart latanoprost 0.005 % drops, emulsion 1 drp ophthalmic (eye) QPM pantoprazole 20 mg tablet,delayed release (DR/EC) 40 mg PO DAILY loratadine [Claritin] 10 mg tablet 10 mg PO PRN Gemtesa 75 mg tablet 75 mg PO DAILY albuterol sulfate 90 mcg/actuation HFA aerosol inhaler 1 - 2 puff INHALATION Q4H PRN PRN (Reason: Shortness Of Breath) Qty: 18 6RF ascorbic acid (vitamin C) 250 mg tablet 250 mg PO BID Adult 50 Plus Probiotic 4 billion cell capsule 4,000 mmu cells PO DAILY Rx Instructions: administer with a meal lisinopril 20 mg tablet 20 mg PO DAILY Qty: 90 3RF multivitamin 1 EACH tablet 1 tab PO DAILY Patient Comments: supplement acetaminophen 325 MG tablet 650 mg PO QHS Patient Comments: pain paroxetine HCl 10 MG tablet 40 mg PO DAILY Patient Comments: anxiety/depression ergocalciferol (vitamin D2) 1,250 mcg (50,000 unit) capsule 50,000 unit PO QMONTH Patient Comments: Next dose Thursday levothyroxine 88 mcg tablet 88 mcg PO .COMPLEX Patient Comments: hypothyroidism Rx Instructions: 88 mcg PO MOTUWETHFR; polyethylene glycol 3350 17 GM packet 17 gm PO PRN aspirin 81 MG tablet 81 mg PO QHS lamotrigine 25 MG tablet extended release 24hr 25 mg PO DAILY furosemide 20 mg tablet 10 mg PO QAM nitrofurantoin monohyd/m-cryst [Macrobid] 100 mg capsule 100 mg PO BID 3 Days Qty: 6 0RF Rx Instructions: must administer with a meal/food fluticasone furoate-vilanterol [Breo Ellipta] 100-25 mcg/dose blister with device 1 inh inhalation DAILY Qty: 60 6RF estradiol 0.01 % (0.1 mg/gram) cream 1 g vaginal 3XW 90 Days Qty: 42.5 3RF Discontinued cyanocobalamin (vitamin B-12) 1,000 MCG tablet 1,000 mcg PO DAILY Patient Comments: supplement baclofen 10 MG tablet 5 mg PO BID Patient Comments: muscle spasms lorazepam 1 mg tablet 2 mg PO QHS Patient Comments: anxiety/sleep meloxicam 15 mg tablet 15 mg PO DAILY doxycycline hyclate 100 mg capsule 100 mg PO BID Referrals / Follow Up: Ken Contreras MD [Primary Care Provider] - Christi Hansen MD [Med Staff - Active Staff] - Within 1 Month Mikel Elena DO [Med Staff - Lecturer Of Portuguese] - Within 1 Month Disposition Disposition (needs filled in before D/C Order can be placed): Alf Facility Charges/Coding Visit Charges Inpatient E&M: 22068 Disch Hosp >30min
--- NOTE | 2025-04-20 12:52 | CASEMGMT ---
Social Work Pt has been accepted to TCU and can admit today. Physician notified and pt is ready for discharge today. Discharge orders faxed to TCU and Sun in TCU notified of discharge. SW met with pt and informed of acceptance and discharge today. Pt is agreeable and will call her brother to notify. Disposition: TCU, skilled level of care ANGELA Clark
[2025-04-20 13:30] VITALS: BP 96/58; PULSE 63; RESP 18; TEMP 36.7; O2SAT 92
[2025-04-23 14:08] LABS: Vitamin B1, Thiamine 93.7 nmol/L (66.5-200.0)
== END 2025-04-20 16:50 | DRG 641 ==
LOC: ED 04-17 00:39 → PCU 04-17 01:01
PROVIDERS: Admitting Provider Family Medicine; Emergency Provider Emergency Medicine; PCP Internal Medicine; Visit Provider Internal Medicine
DX: R62.7 Adult failure to thrive (principal); D53.9 Nutritional anemia, unspecified; E03.9 Hypothyroidism, unspecified; S01.01XA Laceration without foreign body of scalp, initial encounter; E78.5 Hyperlipidemia, unspecified; Z66 Do not resuscitate; N18.30 Chronic kidney disease, stage 3 unspecified; I12.9 Hypertensive chronic kidney disease with stage 1 through stage 4 chronic kidney disease, or unspecified chronic kidney disease; F32.A Depression, unspecified; J45.909 Unspecified asthma, uncomplicated; J44.89 Other specified chronic obstructive pulmonary disease; G47.33 Obstructive sleep apnea (adult) (pediatric); K21.9 Gastro-esophageal reflux disease without esophagitis; M19.90 Unspecified osteoarthritis, unspecified site; G62.9 Polyneuropathy, unspecified; W01.10XA Fall on same level from slipping, tripping and stumbling with subsequent striking against unspecified object, initial encounter; I25.2 Old myocardial infarction; F41.9 Anxiety disorder, unspecified; Z79.51 Long term (current) use of inhaled steroids; Z90.710 Acquired absence of both cervix and uterus; Z79.899 Other long term (current) drug therapy; Z95.0 Presence of cardiac pacemaker; Z87.891 Personal history of nicotine dependence; Z79.1 Long term (current) use of non-steroidal anti-inflammatories (NSAID); Z79.82 Long term (current) use of aspirin; R29.6 Repeated falls; Z68.26 Body mass index [BMI] 26.0-26.9, adult
CPT/HCPCS: 36415; 70450; 70551; 80048; 80053; 81001; 82607; 82746; 83735; 84425; 84443; 85025; 85610; 85730; 90471; 90715; 94640; 94668; 95819; 97162; 97166; 97530; 97535; 99285; A4216

== ENCOUNTER 2025-04-20 17:05 | Inpatient (IN) | payer MEDICARE, BC, SELFPAY ==
[2025-04-20 17:19] VITALS: BP 127/17; PULSE 61; RESP 17; TEMP 35.8; O2SAT 96
[2025-04-20 18:30] VITALS: BMI 27.6
[2025-04-20 18:54] VITALS: RESP 16
--- NOTE | 2025-04-20 20:35 | HP.PCM_ITS ---
HPI - General General Date of Admission: 04/20/25 Date of Service: 04/20/25 Chief Complaint: Here for rehabilitation. HPI Narrative GEOFFREY NASSAR, is a 89 Female who presents with followin04/16/2025 [facility] ED fall. Fall, LOC, amnesia, bent over, fell forward. Hit back of head, no memory of events after fall. Feels achy, unconscious few seconds, neck pain, back pain. Falling frequently past few weeks. Hemoglobin 10.5, BUN 35, Creatinine 1.40, PT/PTT okay, urinalysis negative. CT head negative. Scalp laceration closed with 6 lázaro. Unsteady, not safe to go home alone. 04/17/2025 Admit [facility]. PT/OT/CM for falls. Hold Ativan, Hold Baclofen for falls, was taking Ativan 2mg at bedtime. 04/17/2025 Neurology recommended B12, folate, B1, EEG. MRI brain negative. 04/18/2025 Doing well, headache less, slept well. PT/OT SNF. Hold Ativan, Hold Baclofen. 04/19/2025 Headache resolved. [facility]. B12 elevated, stop B12 supplement, Folic acid normal, Thiamine pending, EEG normal. Creatinine improved to baseline Cr 1.1. 04/20/2025 Admit to TCU with debility, here for rehabilitation, strengthening, prior to discharge home alone. [facility] Medical History Presence of cardiac pacemaker (~05/29/21) Chronotropic incompetence with sinus node dysfunction Sick sinus syndrome Sinus bradycardia Retinal detachment Essential hypertension GERD (gastroesophageal reflux disease) Acute respiratory failure with hypoxia PND (post-nasal drip) History of non-ST elevation myocardial infarction (NSTEMI) Pulmonary nodule Cough Dizziness Bronchiectasis Thrush, oral Dyspnea Chest pain Asthma exacerbation Bilateral SubmassivePE Hypothyroidism Asthmatic bronchitis , chronic Home Medications ?Medication ?Instructions ?Recorded ?Last Taken ?Type acetaminophen 325 mg tablet 650 mg PO QHS pain 7 04/15/25 History multivitamin 1 tab PO DAILY vitamin 11/1704/15/25 History paroxetine HCl 10 mg tablet 40 mg PO DAILY mental heal th 11/17/16 04/20/25 09:20 History polyethylene glycol 3350 17 gram 17 gm PO PRN constipa tion 05/27/17 04/19/25 08:30 History oral powder packet aspirin 81 mg tablet,delayed 81 mg PO QHS heart health 11/27/17 04/19/25 21:20 History release lamotrigine 25 mg tablet,extended 25 mg PO DAILY mood/ seizures 11/27/17 04/20/25 09:20 History release 24 hr loratadine 10 mg tablet (Claritin) 10 mg PO PRN allerg ies 12/27/20 04/19/25 08:25 History albuterol sulfate 2.5 mg/3 mL 2.5 mg inhalation Q4H PA N Sob &/Or 01/10/21 05/29/21 History (0.083 %) solution for nebulization Wheezing brimonidine 0.2 %-timolol 0.5 % 1 drp ophthalmic (eye) BID eye 01/10/21 04/15/25 History eye drops (Combigan) health ketotifen fumarate 0.025 % (0.035 1 drp ophthalmic (ey e) BID eye 01/10/21 Unknown History %) eye drops health latanoprost 0.005 % eye drops, 1 drp ophthalmic (eye) QPM eye 01/10/21 04/19/25 21:20 History emulsion health pantoprazole 20 mg tablet,delayed 40 mg PO DAILY reflu x 01/10/21 04/20/25 09:20 History release vibegron 75 mg tablet (Gemtesa) 75 mg PO DAILY bladder 08/07/21 04/20/25 09:20 History albuterol sulfate 90 mcg/actuation 1 - 2 puff inhalati on Q4H PRN PRN 02/11/22 04/15/25 Rx aerosol inhaler Shortness Of Breath #18 gram s ascorbic acid (vitamin C) 250 mg 250 mg PO BID health maintenance 08/19/22 Unknown History tablet lactobacillus combination no.9 4 4,000 mmu cells PO DA BUTCH gut health 08/19/22 04/15/25 History billion cell capsule (Adult 50 Plus Probiotic) ergocalciferol (vitamin D2) 1,250 50,000 unit PO QMONT H vitamin 09/10/22 Unknown History mcg (50,000 unit) capsule levothyroxine 88 mcg tablet 88 mcg PO .COMPLEX thyroid 07/01/24 04/20/25 06:15 History fluticasone furoate 100 1 inh inhalation DAILY breat rupal 08/22/24 04/15/25 Rx mcg-vilanterol 25 mcg/dose #60 ea inhalation powder (Breo Ellipta) lisinopril 20 mg tablet 20 mg PO DAILY blood pressur e #90 03/31/25 04/20/25 09:20 Rx tabs estradiol 0.01% (0.1 mg/gram) 1 g vaginal 3XW dryness 3 months 04/14/25 04/10/25 Rx vaginal cream #42.5 grams furosemide 20 mg tablet 10 mg PO QAM Diuretic 04/20/25 09:20 History lorazepam 0.5 mg tablet 0.25 mg (1/2 x 0.5 mg) PO BI D 04/20/25 04/20/25 09:25 Rx anxiety #0 tabs nitrofurantoin 100 mg PO BID UTI Prophylaxi s 3 04/20/25 04/20/25 09:20 Rx monohydrate/macrocrystals 100 mg days #6 caps capsule (Macrobid) sennosides 8.6 mg-docusate sodium 2 tab PO BID PRN PRN Constipation 04/20/25 Unknown Rx 50 mg tablet (Stimulant Laxative #0 tabs Plus) thiamine HCl (vitamin B1) 100 mg 100 mg PO BREAKFAST s upplement #0 04/20/25 04/20/25 09:20 Rx tablet tabs tizanidine 2 mg tablet 2 mg PO Q8H PRN PRN muscle s pasm 04/20/25 Unknown Rx #0 tabs trazodone 50 mg tablet 50 mg PO QHS insomnia #0 tab s 04/20/25 04/19/25 21:20 Rx Allergy/AdvReac Type Severity Reaction Status Date / Time ciprofloxacin (From Cipro) Allergy Itching Verified 04/17/25 02:22 diphenhydramine (From Allergy Rash Verified 04/17/25 02:22 Benadryl) Penicillins Allergy Hives Verified 04/17/25 02:22 shellfish derived Allergy Anaphylaxis Verified 04/17/25 02:22 Sulfa (Sulfonamide Allergy Upset Verified 04/17/25 02:22 Antibiotics) Stomach tiotropium (From Spiriva Allergy Other Verified 04/17/25 02:22 with HandiHaler) ketamine AdvReac hallucinati Verified 04/17/25 02:22 ons Family History Mother Breast cancer Colon cancer Father Cancer Lung Grandmother Breast cancer CVA (cerebral vascular accident) Surgical History History of tonsillectomy History of cholecystectomy History of bronchoscopy History of cataract extraction History of hysterectomy History of bladder suspension procedure Social History household members: none Smoking Status: Former smoker Tobacco: How many years used: 10 second hand exposure: No alcohol intake: current details: occasional substance use type: does not use caffeine: Yes Type: coffee what type of physical activity do you participate in: other seatbelt use: always do you feel safe at home: Yes ROS Constitutional Constitutional: Reports weakness; Denies chills, fever(s) or weight gain ENT HEENT: Denies headache(s), nasal congestion or nasal discharge Cardiovascular Cardiovascular: Denies chest pain or palpitations Respiratory/Chest Respiratory/Chest: Denies cough, excessive phlegm production or shortness of b reath with exertion Gastrointestinal Gastrointestinal: Denies abdominal pain, nausea or vomiting Genitourinary Genitourinary: Denies dysuria Musculoskeletal Musculoskeletal: Denies joint pain or joint swelling Integumentary Integumentary: Denies rash or wounds Neurologic Neurologic: Denies focal weakness, numbness or tingling Psychiatric Psychiatric: Denies anxiety, auditory hallucinations, depression, homicidal ideation or suicidal ideation Vital Signs Vital Signs Vital Signs: 04/20/25 18:54 Pulse Rhythm Regular Pulse Strength Normal (2+) Respiratory Rate 16 Respiratory Effort Normal Non-Labored Respiratory Depth Normal Respiratory Pattern Normal Oxygen Delivery Method Room Air Weight Weight: 68.353 kg Body Mass Index (BMI) 27.6 Physical Exam Const alert General Appearance: cooperative HEENT normocephalic Eyes PERRL and EOMs intact bilaterally Neck supple, no JVD and no carotid bruits Resp normal respiratory effort, normal air movement and clear to auscultation bilaterally Cardio regular rate and regular rhythm GI normal to inspection, nondistended, normoactive bowel sounds, non-tender and non-distended Extremity normal capillary refill General Extremity: Negative for edema Skin no rashes or lesions noted General Skin Exam: no breakdown Psych affect normal Appearance: appropriate Assessment & Plan Assessment/Plan (1) Debility: (2) Laceration of occipital scalp: (3) Fall: (4) Loss of consciousness: (5) Acute kidney injury: (6) Muscle spasm: (7) B12 deficiency: (8) Depression: (9) Constipation: (10) Asthma: QUALIFIERS: Asthma complication type: uncomplicated Asthma persistence: intermittent Asthma severity: mild Qualified Code(s): J45.20 - Mild intermittent asthma, uncomplicated (11) Glaucoma: (12) Hypothyroidism: (13) Osteoarthritis: (14) Essential (primary) hypertension: (15) Allergic rhinitis: (16) Anxiety: PLAN: Plan 89 year old female with below past medical hospitalized for fall, loss of consciousness, amnesia (stroke ruled out, seizure unlikely) complicated by scalp laceration, acute kidney injury, admitted to TCU with debility, here for rehabilitation, strengthening, prior to discharge home alone. * Debility - PT/OT. * Pain - Tylenol 1000mg qhs. * Bowel - Miralax 17gm daily prn, Senna/colace 2 tablets bid prn. * Adult immunization - Administer pneumonia vaccine, covid vaccine, flu vaccine as appropriate. * DVT prophylaxis - Lovenox 40mg sc daily. * Asthma - Fluticasone/Salmeterol 232-14 1 puff bid, Albuterol 2.5mg neb q4 prn, Albuterol 1-2 puff q4 prn. * Vitamin C deficiency - Vitamin C 250mg bid. * CV prophylaxis - Aspirin 81mg qhs. * Glaucoma - Brimonidine 1gtt ou bid, Latanoprost 1gtt ou qpm, Timolol 1gtt ou bid. * Vitamin D deficiency - D 1.25mg qmonth. * Edema - Furosemide 10mg qam. * GI prophylaxis - Lactobacillus 1 capsule daily. * Mood disorder - Lamictal 25m gdaily. * Hypothyroidism - Levothyroxine 88mcg 5 days/week. * Hypertension - Lisinopril 20mg daily. * Allergic rhinitis - Loratadine 10mg daily. * Nutrition - MVI 1 tablet daily. * GERD - Pantoprazole 40mg daily. * Alcohol use - Thiamine 100mg daily. * Muscle spasm - Tizanidine 2mg q8 prn. * OAB - Gemtesa 75mg daily. The following psychotropic medication was present on admission: Lorazepam 0.25mg bid taper. Psychotropic medication therapy is indicated for a diagnosis of: Anxiety. Based on my clinical evaluation, continuation of the medication is necessary at this time. Gradual dose reduction plan (select one): __x__ GDR will be attempted. Will monitor patient symptoms and behaviors in response to GDR. ____ GRD contraindicated. Reason contraindicated: The following psychotropic medication was present on admission: Paxil 40mg daily . Psychotropic medication therapy is indicated for a diagnosis of: Depression. Based on my clinical evaluation, continuation of the medication is necessary at this time. Gradual dose reduction plan (select one): ____ GDR will be attempted. Will monitor patient symptoms and behaviors in response to GDR. _x__ GRD contraindicated. Reason contraindicated: stable chronic privacy specialist use. The following psychotropic medication was present on admission: Trazodone 50mg qhs. Psychotropic medication therapy is indicated for a diagnosis of: Insomnia. Based on my clinical evaluation, continuation of the medication is necessary at this time. Gradual dose reduction plan (select one): ____ GDR will be attempted. Will monitor patient symptoms and behaviors in response to GDR. _x___ GRD contraindicated. Reason contraindicated: stable chronic group home use.
[2025-04-20] MEDS: Latanoprost 0.005% 1 Bottle 1 DRP OPHTHALMIC (21:36)
[2025-04-20] MEDS: BRIMONIDINE 0.2% 5ML BOTTLE 1 DRP EACH EYE (21:45)
[2025-04-20] MEDS: Fluticasone/Salmeterol 232-14 Inhaler 1 PUFF INHALATION (21:46)
[2025-04-20] MEDS: Timolol 0.5% 5ML OPTH.BTL 1 DRP OPHTHALMIC (21:46)
[2025-04-20] MEDS: Aspirin E.C. 81 MG Tablet PO (21:46)
[2025-04-20] MEDS: 0.9% Saline Lock 10 ML Syringe IV (21:54)
[2025-04-21 05:42] LABS: Hematocrit 31.5 % (37-47); Hemoglobin 9.7 g/dL (12.0-15.0); Immature Granulocytes Count 0.060 X10^3/uL (0.0-0.0); Mean Corp Hgb Conc 30.8 g/dL (32-36); Mean Corpuscular Volume 100.6 fL (81-99); Mean Platelet Vol. 10.4 fl (6.2-12.0); NRBC Flagged by Analyzer 0 % (0-5); Platelet Count 190 K/mm3 (150-450); RBC Distribution Width CV 14.8 % (11.6-14.6); RBC Distribution Width SD 54.3 fl (35.1-43.9); Red Blood Count 3.13 M/mm3 (4.2-5.4); White Blood Count 9.3 K/mm3 (4.4-11.0)
[2025-04-21 06:01] LABS: Anion Gap 8 (5-15); BUN 40 mg/dL (4-19); BUN/Creat Ratio 32.0 RATIO (10-20); Calcium,Total 9.2 mg/dL (7.6-11.0); Carbon Dioxide 24.0 mmol/L (21.0-32.0); Chloride 106 mmol/L (98-108); Estimated Creatinine Clearance 28.42 ml/min (50-250); Glucose 98 mg/dL (70-99); Potassium 5.2 mmol/L (3.3-5.1)
[2025-04-21 09:39] VITALS: BP 104/65; PULSE 62; RESP 16; TEMP 36.6; O2SAT 91
[2025-04-21] MEDS: Fluticasone/Salmeterol 232-14 Inhaler 1 PUFF INHALATION ×2 (09:51→20:44)
[2025-04-21] MEDS: Timolol 0.5% 5ML OPTH.BTL 1 DRP OPHTHALMIC ×2 (09:51→20:44)
[2025-04-21] MEDS: 0.9% Saline Lock 10 ML Syringe IV ×2 (09:51→20:52)
[2025-04-21] MEDS: Tuberculin,Purif.prot.deriv. 50 TU/ML Vial 0.1 ML ID (09:51)
[2025-04-21] MEDS: BRIMONIDINE 0.2% 5ML BOTTLE 1 DRP EACH EYE ×2 (09:52→20:42)
--- NOTE | 2025-04-21 11:15 | MDS.RN ---
MDS entry tracker complete. Pain assessed.
[2025-04-21] MEDS: Thiamine Hydrochloride 100 MG Tablet PO (12:32)
[2025-04-21] MEDS: Lactobacillis Acidophilus 1 CAP PO (12:32)
--- NOTE | 2025-04-21 12:48 | CASEMGMT ---
Social Work SW met with pt and completed initial assessment. SW introduced self and role of SW. Contact information verified. Pt confirmed code status as DNRCCA. Pt has advance directives on file at [facility]. SW educated pt to Medicare benefit and copay coverage. Pt's goal is to return home with her brother whom she has lived with for the last 30 years. Pt was independent prior to hospitalization and would like to regain independence. Pt was active with [facility]. SW to follow for dc planning. BIMS completed with score of 15/15. PHQ2 completed with score of 0. S ANGELA Arboleda
--- NOTE | 2025-04-21 13:23 | PCM.PN.DRR ---
Documented by User: Patria Gallo 04/21/25 14:27 TCU RX Drug Regimen Review Subjective/Objective Subjective/Objective Subjective: TCU Admission. 89 YOF presented to the ER with a fall. Hospitalized for fall, loss of consciousness, amnesia (stroke ruled out, seizure unlikely) complicated by scalp laceration, acute kidney injury. Admitted to TCU with debility for strengthening and rehabilitation. Objective: Allergies ciprofloxacin (From Cipro) Allergy (Verified 04/17/25 02:22) Itching diphenhydramine (From Benadryl) Allergy (Verified 04/17/25 02:22) Rash Penicillins Allergy (Verified 04/17/25 02:22) Hives shellfish derived Allergy (Verified 04/17/25 02:22) Anaphylaxis Sulfa (Sulfonamide Antibiotics) Allergy (Verified 04/17/25 02:22) Upset Stomach tiotropium (From Spiriva with HandiHaler) Allergy (Verified 04/17/25 02:22) Other ketamine Adverse Reaction (Verified 04/17/25 02:22) hallucinations Current Medications Generic Name Dose Route Start Last Admin Trade Name Freq PRN Reason Stop Dose Admin Acetaminophen 1,000 mg 04/21/25 13:19 Acetaminophen 500 Mg Tablet PO Q6H PRN Pain Score 1-10 Albuterol Sulfate 2.5 mg 04/20/25 17:42 Albuterol 2.5 Mg/3 Ml Vial.Neb. INHALATION Q4H PRN Sob &/Or Wheezing Albuterol Sulfate 1 - 2 puff 04/20/25 17:56 Albuterol Ih (6.7 Gm) 1 Puff Inhaler INHALATION Q4H PRN PRN Shortness Of Breath Ascorbic Acid 250 mg 04/20/25 22:00 04/21/25 12:34 Ascorbic Acid 500 Mg Tablet PO 250 mg BID RENÉ Administration Aspirin 81 mg 04/20/25 22:00 04/20/25 21:46 Aspirin E.C. 81 Mg Tablet PO 81 mg QHS RENÉ Administration Brimonidine Tartrate 1 drp 04/20/25 22:00 04/21/25 09:52 Brimonidine 0.2% 5ml Bottle EACH EYE 1 drp BID RENÉ Administration Enoxaparin Sodium 30 mg 04/22/25 06:00 Enoxaparin 30 Mg/0.3 Ml Syringe SC DAILY@0600 [facility] Ergocalciferol 1.25 mg 05/01/25 10:00 Ergocalciferol 1.25 Mg (50, 000 Unit) Capsule PO QMONTH RENÉ Furosemide 10 mg 04/21/25 10:00 04/21/25 12:33 Furosemide 20 Mg Tablet PO 10 mg QAM RENÉ Administration Protocol Lamotrigine 25 mg 04/21/25 10:00 04/21/25 12:32 Lamotrigine 25 Mg Tablet PO 25 mg DAILY RENÉ Administration Latanoprost 1 drp 04/20/25 21:00 04/20/25 21:36 Latanoprost 0.005% 1 Bottle OPHTHALMIC 1 drp QPM RENÉ Administration Levothyroxine Sodium 88 mcg 04/21/25 06:00 04/21/25 05:33 Levothyroxine 88 Mcg Tablet PO 88 mcg [id number]@0600 RENÉ Administration Lisinopril 20 mg 04/21/25 10:00 04/21/25 12:35 Lisinopril 20 Mg Tablet PO 20 mg DAILY RENÉ Administration Protocol Loratadine 10 mg 04/21/25 10:00 Loratadine 10 Mg Tablet PO DAILY PRN ALLERGIES Lorazepam 0.25 mg 04/20/25 22:00 04/21/25 12:32 Lorazepam 0.5 Mg Tablet PO 04/26/25 21:59 0.25 mg BID RENÉ Administration Taper Multivitamins 1 tablet 04/21/25 08:00 04/21/25 12:32 Multivitamins,Therapeutic Tablet PO 1 tablet DAILYCM RENÉ Administration Pantoprazole Sodium 40 mg 04/21/25 10:00 04/21/25 12:34 Pantoprazole Sodium 40 Mg Tablet PO 40 mg DAILY RENÉ Administration Paroxetine HCl 40 mg 04/21/25 10:00 04/21/25 12:34 Paroxetine 20 Mg Tablet PO 40 mg DAILY RENÉ Administration Polyethylene Glycol 17 gm 04/20/25 18:00 Polyethylene Glycol 3350 17 Gm Packet PO DAILY PRN PRN CONSTIPATION Fluticasone/Salmeterol 1 puff 04/20/25 22:00 04/21/25 09:51 Fluticasone/Salmeterol 232-14 Inhaler INHALATION 1 puff Q12 RENÉ Administration Senna/Docusate Sodium 2 tablet 04/20/25 17:47 Senna/Docusate Sodium 1 Tablet PO BID PRN PRN Constipation Sodium Chloride 10 - 40 ml 04/20/25 18:32 04/21/25 09:51 0.9% Saline Lock 10 Ml Syringe IV 10 ml UD PRN Administration SALINE FLUSH Thiamine HCl 100 mg 04/21/25 08:00 04/21/25 12:32 Thiamine Hydrochloride 100 Mg Tablet PO 100 mg BREAKFAST RENÉ Administration Timolol Maleate 1 drp 04/20/25 22:00 04/21/25 09:51 Timolol 0.5% 5ml Opth.Btl OPHTHALMIC 1 drp BID RENÉ Administration Tizanidine HCl 2 mg 04/20/25 17:47 Tizanidine Hcl 2 Mg Tablet PO Q8H PRN PRN muscle spasm Trazodone HCl 50 mg 04/20/25 22:00 04/20/25 21:46 Trazodone 50 Mg Tablet PO 50 mg QHS RENÉ Administration Tuberculin PPD 0.1 ml 04/28/25 10:00 Tuberculin,Purif.Prot.Deriv. 50 Tu/Ml Vial ID 04/28/25 10:01 X1 ONE Problem List Anxiety (Acute) Allergic rhinitis (Acute) Essential (primary) hypertension (Acute) Osteoarthritis (Acute) Glaucoma (Acute) Depression (Acute) B12 deficiency (Acute) Muscle spasm (Acute) Acute kidney injury (Acute) Loss of consciousness (Acute) Debility (Acute) Laceration of occipital scalp (Acute) Asthma (Chronic) Hypothyroidism (Chronic) Vital Signs Temp Pulse Resp BP Pulse Ox O2 Del Method 97.8 F 62 16 104/65 91 Room Air 04/21/25 09:39 04/21/25 09:39 04/21/25 09:39 04/21/25 09:39 04/21/25 09:39 04/21/25 09:39 Oxygen Delivery Method Room Air Weight: 68.353 kg Body Mass Index (BMI) 27.6 Sodium 137 mmol/L (133-145) 04/21/25 05:28 Potassium 5.2 mmol/L (3.3-5.1) H 04/21/25 05:28 Chloride 106 mmol/L (98-108) 04/21/25 05:28 Carbon Dioxide 24.0 mmol/L (21.0-32.0) 04/21/25 05:28 Anion Gap 8 (5-15) 04/21/25 05:28 BUN 40 mg/dL (4-19) H 04/21/25 05:28 Creatinine 1.24 mg/dL (0.70-1.20) H 04/21/25 05:28 Est GFR (MDRD) Non-Af 42 (>60) L 04/21/25 05:28 BUN/Creatinine Ratio 32.0 RATIO (10-20) H 04/21/25 05:28 Glucose 98 mg/dL (70-99) 04/21/25 05:28 Assessment/Plan: 1. Pain: acetaminophen 1000mg PO QHS. Last LFTs: 04/17/25. Check LFTs if resident develops symptoms of hepatoxicity. Consider monitoring LFTs if patient using > 3 gm/day of acetaminophen for prolonged period. Do not exceed 4000 mg in 24 hours. Please monitor for increased pain. 2. Bowel: Miralax 17gm PO daily PRN constipation and senna/docusate 2T PO BID PRN constipation. No PRN doses have been given. Last document bowel movement: 04/20/25. Monitor for usage of prn medications, abdominal pain, frequency of bowel movements, diarrhea. Recommend holding bowel regimen if resident develops diarrhea. 3. DVT prophylaxis: enoxaparin 30mg SC daily. Enoxaparin is a renally dose medication. CrCl estimated =28mL/min.? Dose adjusted per renal dosing policy. Monitor serum creatine periodically. Please continue to monitor for S/S of bleeding, hemoglobin (last 9.7g/dL), platelets (last 190,000) and renal function. 4. CV prophylaxis: aspirin 81mg PO QHS. Please continue to monitor for S/S of bleeding/chest pain and bruising. 5. Hypertension: lisinopril 20mg PO daily. Please continue to monitor BP (range 104/65-127/17), renal function, potassium (elevated today at 5.2mmol/L, BMP ordered for tomorrow morning), cough. 6. Asthma: fluticasone/salmeterol 232/14mcg 1 puff BID, albuterol 2.5mg nebulized solution Q4H PRN SOB/wheezing and albuterol MDI 1-2 puff Q4H PRN SOB. No PRN doses given. Please add instructions if albuterol MDI versus albuterol nebs should be given first line for SOB as they are both written PRN SOB. Thanks. Please rinse mouth with water and spit following fluticasone/salmeterol administration to prevent thrush. Please continue to monitor HR (range 61-62), PRN usage, SOB, wheezing, thrush. 7. Edema: furosemide 10mg PO QAM. Please continue to monitor for S/S of edema, renal function and potassium (last 5.2mmol/L). 8. Hypothyroidism: levothyroxine 88mcg PO M-F. Please continue to monitor TSH (last 04/17/25) and S/S of hypo/hyperthyroidism. 9. GERD: pantoprazole 40mg PO daily. Monitor for diarrhea (consider possibility of C. diff if develops). Consider serum magnesium level and B12 level with long-term use if indicated. If clinically appropriate, consider dose reduction/weaning of medication due to retirement risks of C. diff and fractures (Beers). 10. Allergic rhinitis: loratadine 10mg PO daily PRN allergies (no doses given). Please continue to monitor for S/S of allergies and drowsiness. 11. Glaucoma: brimonidine 0.2% 1gtt OU BID, latanoprost 0.005% 1gtt OU QPM and timolol 0.5% 1 gtt OU BID. Please continue to monitor for S/S of glaucoma, eye irritation. 12. OAB: vibegron 75mg PO daily. Please continue to monitor for S/S of OAB and GI side effects. 13. Muscle spasms: tizanidine 2mg PO Q8H PRN muscle spasm. No PRN doses given. Please continue to monitor for PRN usage and muscle spasms. 14. Alcohol use: thiamine 100mg PO daily. Please continue to monitor. 15. Vitamin C and D deficiencies/GI prophylaxis/nutrition: ascorbic acid 250mg PO BID, lactobacillus 1C PO daily, multivitamin 1T PO daily, ergocalciferol 1.25mg PO monthly. Please continue to monitor vitamin D (last 2022). Assessment/Plan for indications treated with psychotropic medications: 1. Anxiety: lorazepam 0.25mg PO BID taper thru 04/26/25. GDR in progress. Monitor for sedation, mental status and cognition. Monitor for falls (risk factor for falls) and implement fall prevention strategies. Monitor for respiratory depression. RR range since admission =61-62. 2. Depression/mood stabilizer: paroxetine 40mg PO daily and lamotrigine 25mg PO daily. Please see physician note regarding GDR. Monitor for diarrhea, nausea, rash, headache, anxiety or drowsiness, suicidal thoughts or behaviors (Boxed Warning), symptoms of bleeding, symptoms of serotonin syndrome (including agitation, confusion, hyperreflexia, rigidity/myoclonus, tremor, tachycardia, tachypnea), sodium levels (last Na =137mmol/L). Monitor for efficacy including resident symptoms, behaviors and indications of distress. Monitor for tolerability including mental status, cognition, excessive sleepiness, withdrawal or decreased participation in activities and decline in physical functioning. Maximize use of nonpharmacologic/behavioral interventions to facilitate dose reduction or discontinuation as appropriate. Please evaluate the appropriateness of GDR unless contraindicated. If appropriate, GDR should be attempted in 2 separate quarters within the first year of use or admission to TCU. If GDR attempted, monitor resident symptoms/behaviors. 3. Insomnia: trazodone 50mg PO QHS. Please see physician note regarding GDR. Monitor for drowsiness, dizziness or confusion, dry mouth, constipation, symptoms of serotonin syndrome (including agitation, confusion, hyperreflexia, rigidity/myoclonus, tremor, tachycardia, tachypnea), suicidal thoughts or behaviors (Boxed Warning). Monitor HR (can cause bradycardia or tachycardia). Monitor for orthostatic hypotension, including postural dizziness, syncope or falls. Check orthostatic vital signs if suspicion of orthostasis. Monitor for efficacy including resident symptoms, behaviors and indications of distress. Monitor for tolerability including mental status, cognition, excessive sleepiness, withdrawal or decreased participation in activities and decline in physical functioning. Maximize use of nonpharmacologic/behavioral interventions to facilitate dose reduction or discontinuation as appropriate. Please evaluate the appropriateness of GDR unless contraindicated. If appropriate, GDR should be attempted in 2 separate quarters within the first year of use or admission to TCU. If GDR attempted, monitor resident symptoms/behaviors. Medical chart and medication regimen reviewed. The following medication irregularities or issues were identified: 1. Albuterol 2.5mg nebulized solution Q4H PRN SOB/wheezing and albuterol MDI 1-2 puff Q4H PRN SOB. Please add instructions if albuterol MDI versus albuterol nebs should be given first line for SOB as they are both written for PRN SOB. Thanks. Date Date of Note: 04/21/25 Documented by User: Dr. Basilio Nguyen MD 04/21/25 14:23 TCU RX Drug Regimen Review Provider Comments Provider responsibility Provider Comments to Recommendations by Pharmacy Agree
[2025-04-21] MEDS: Latanoprost 0.005% 1 Bottle 1 DRP OPHTHALMIC (20:42)
[2025-04-21] MEDS: Aspirin E.C. 81 MG Tablet PO (20:44)
[2025-04-22 07:48] VITALS: O2SAT 92
[2025-04-22] MEDS: Fluticasone/Salmeterol 232-14 Inhaler 1 PUFF INHALATION ×2 (08:51→20:33)
[2025-04-22] MEDS: Lactobacillis Acidophilus 1 CAP PO (08:53)
[2025-04-22] MEDS: Thiamine Hydrochloride 100 MG Tablet PO (08:53)
[2025-04-22] MEDS: Timolol 0.5% 5ML OPTH.BTL 1 DRP OPHTHALMIC ×2 (08:54→20:33)
[2025-04-22] MEDS: BRIMONIDINE 0.2% 5ML BOTTLE 1 DRP EACH EYE ×2 (08:54→20:34)
[2025-04-22 09:04] VITALS: BP 118/60; PULSE 62; RESP 16; TEMP 36.3; O2SAT 93
[2025-04-22 10:16] LABS: Anion Gap 9 (5-15); BUN 39 mg/dL (4-19); BUN/Creat Ratio 28.7 RATIO (10-20); Calcium,Total 9.4 mg/dL (7.6-11.0); Carbon Dioxide 25.7 mmol/L (21.0-32.0); Chloride 104 mmol/L (98-108); Estimated Creatinine Clearance 25.91 ml/min (50-250); Glucose 97 mg/dL (70-99); Potassium 4.0 mmol/L (3.3-5.1)
[2025-04-22 11:13] VITALS: O2SAT 96
[2025-04-22] MEDS: Latanoprost 0.005% 1 Bottle 1 DRP OPHTHALMIC (20:34)
[2025-04-22] MEDS: Aspirin E.C. 81 MG Tablet PO (20:34)
[2025-04-23 07:31] VITALS: O2SAT 94
[2025-04-23] MEDS: Lactobacillis Acidophilus 1 CAP PO (09:21)
[2025-04-23] MEDS: Thiamine Hydrochloride 100 MG Tablet PO (09:22)
[2025-04-23] MEDS: Fluticasone/Salmeterol 232-14 Inhaler 1 PUFF INHALATION ×2 (09:22→21:06)
[2025-04-23] MEDS: Timolol 0.5% 5ML OPTH.BTL 1 DRP OPHTHALMIC ×2 (09:23→21:06)
[2025-04-23] MEDS: BRIMONIDINE 0.2% 5ML BOTTLE 1 DRP EACH EYE ×2 (09:23→21:05)
[2025-04-23 09:29] VITALS: BP 113/54; PULSE 61; RESP 18; TEMP 36.7; O2SAT 95
[2025-04-23] MEDS: 0.9% Saline Lock 10 ML Syringe IV ×2 (12:29→21:10)
[2025-04-23] MEDS: Latanoprost 0.005% 1 Bottle 1 DRP OPHTHALMIC (21:04)
[2025-04-23] MEDS: Aspirin E.C. 81 MG Tablet PO (21:06)
[2025-04-24 06:50] VITALS: O2SAT 95
[2025-04-24] MEDS: Lactobacillis Acidophilus 1 CAP PO (08:28)
[2025-04-24] MEDS: Thiamine Hydrochloride 100 MG Tablet PO (08:28)
[2025-04-24] MEDS: BRIMONIDINE 0.2% 5ML BOTTLE 1 DRP EACH EYE ×2 (08:29→21:50)
[2025-04-24] MEDS: Timolol 0.5% 5ML OPTH.BTL 1 DRP OPHTHALMIC ×2 (08:29→21:51)
[2025-04-24] MEDS: Fluticasone/Salmeterol 232-14 Inhaler 1 PUFF INHALATION ×2 (08:29→21:51)
[2025-04-24] MEDS: Saliva Substitute 237 ML BOTTLE 15 ML MUCOUS MEM (08:37)
[2025-04-24 08:39] VITALS: BP 117/52; PULSE 60; RESP 16; TEMP 36.8; O2SAT 95
--- NOTE | 2025-04-24 11:31 | NURSING ---
Offered covid vaccine, VIS provided. Resident declines.
[2025-04-24] MEDS: 0.9% Saline Lock 10 ML Syringe IV ×2 (12:20→22:03)
[2025-04-24] MEDS: Latanoprost 0.005% 1 Bottle 1 DRP OPHTHALMIC (21:47)
[2025-04-24] MEDS: Aspirin E.C. 81 MG Tablet PO (21:50)
--- NOTE | 2025-04-25 09:03 | NURSING ---
Seaming Inspector Note; Activity Asset: Roberto Carrera is independent in her choice of daily activities. Debi enjoys reading, tv and being w/family and friends. She has her smartphone she uses for games and talking w/others. She welcomes group activities, the corporate paralegal and therapy dog when available. Staff will remind he of weekly activities and respect her right to say no.
[2025-04-25] MEDS: Fluticasone/Salmeterol 232-14 Inhaler 1 PUFF INHALATION ×2 (10:06→21:23)
[2025-04-25] MEDS: Lactobacillis Acidophilus 1 CAP PO (10:08)
[2025-04-25] MEDS: Thiamine Hydrochloride 100 MG Tablet PO (10:09)
[2025-04-25] MEDS: BRIMONIDINE 0.2% 5ML BOTTLE 1 DRP EACH EYE ×2 (10:09→21:29)
[2025-04-25] MEDS: Timolol 0.5% 5ML OPTH.BTL 1 DRP OPHTHALMIC ×2 (10:10→21:26)
[2025-04-25] MEDS: Lidocaine 5% Patch 1 PATCH TOPICAL (10:10)
--- NOTE | 2025-04-25 14:48 | CHAPLAIN ---
Type of Pastoral Visit ___ Initial Visit _x__ Follow-up Visit ___ On-call Visit ___ General Patient Visit ___ Spiritual Assessment ___ Family Conference ___ Bereavement ___ Rapid Response ___ Code Blue ___ Other (describe below) Pastoral Care Referral From _x__ Patient ___ Family ___ Nurse ___ Physician ___ Quality Control Inspector ___ Antique Clocks Repairer ___ Other (describe below) Sacrament/Intervention _x__ Active listening ___ Anointing ___ Mosque ___ Bereavement ___ Communion ___ Annita exploration ___ _x__ Life review _x__ Prayer ___ Reconciliation ___ Sacrament of Sick ___ Supportive presence ___ Wedding ___ Other (describe below) Pastoral Comments this was a follow up visit to the patient previously seen in PCU; pt remembers and is 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
[2025-04-25 16:00] VITALS: BP 118/60; PULSE 60; RESP 17; TEMP 36.8; O2SAT 94
[2025-04-25] MEDS: Glycerin/Hypromellose/PEG400 15 ml Bottle 2 DRP EACH EYE (17:37)
[2025-04-25] MEDS: Latanoprost 0.005% 1 Bottle 1 DRP OPHTHALMIC (21:22)
[2025-04-25] MEDS: 0.9% Saline Lock 10 ML Syringe IV (21:22)
[2025-04-25] MEDS: Aspirin E.C. 81 MG Tablet PO (21:26)
[2025-04-26 06:36] VITALS: PULSE 64; O2SAT 95
[2025-04-26 08:03] VITALS: BP 115/58; PULSE 60; RESP 16; TEMP 36.8; O2SAT 93
[2025-04-26] MEDS: Thiamine Hydrochloride 100 MG Tablet PO (08:08)
[2025-04-26] MEDS: Fluticasone/Salmeterol 232-14 Inhaler 1 PUFF INHALATION ×2 (08:08→21:19)
[2025-04-26] MEDS: Lactobacillis Acidophilus 1 CAP PO (08:08)
[2025-04-26] MEDS: Lidocaine 5% Patch 1 PATCH TOPICAL (08:09)
[2025-04-26] MEDS: BRIMONIDINE 0.2% 5ML BOTTLE 1 DRP EACH EYE ×2 (08:10→21:24)
[2025-04-26] MEDS: Timolol 0.5% 5ML OPTH.BTL 1 DRP OPHTHALMIC ×2 (08:11→21:21)
[2025-04-26] MEDS: 0.9% Saline Lock 10 ML Syringe IV ×2 (08:19→21:35)
--- NOTE | 2025-04-26 10:55 | CASEMGMT ---
Social Work IDT met with patient and brother Anthony at bedside, then via conference are two dtr's Aleah and Mickie, for care plan meeting. Discussed patient's progress in PT/OT/SN/RDN. Educated to Medicare benefit. Provided pt/family with written communication of insurance process and copay coverage during stay. Dtr's had multiple questions for each disciplines. Answered questions. Dtr, Aleah, will be in town next Mon/Tu and follow up with staff for updates. SW will continue to follow for DC planning. Bree Puentes PUBLIC AFFAIRS OFFICER FIRESTOPPER TECHNICIAN
[2025-04-26] MEDS: Aspirin E.C. 81 MG Tablet PO (21:26)
[2025-04-26] MEDS: Latanoprost 0.005% 1 Bottle 1 DRP OPHTHALMIC (21:28)
[2025-04-27 08:47] VITALS: BP 109/67; PULSE 61; RESP 17; TEMP 37; O2SAT 92
[2025-04-27] MEDS: Lactobacillis Acidophilus 1 CAP PO (08:51)
[2025-04-27] MEDS: Thiamine Hydrochloride 100 MG Tablet PO (08:51)
[2025-04-27] MEDS: BRIMONIDINE 0.2% 5ML BOTTLE 1 DRP EACH EYE ×2 (08:52→22:38)
[2025-04-27] MEDS: Lidocaine 5% Patch 1 PATCH TOPICAL (08:53)
[2025-04-27] MEDS: Timolol 0.5% 5ML OPTH.BTL 1 DRP OPHTHALMIC ×2 (08:53→22:38)
[2025-04-27] MEDS: Fluticasone/Salmeterol 232-14 Inhaler 1 PUFF INHALATION ×2 (08:55→22:38)
[2025-04-27] MEDS: 0.9% Saline Lock 10 ML Syringe IV ×2 (11:14→22:46)
[2025-04-27 11:17] VITALS: PULSE 61; RESP 17; O2SAT 93
[2025-04-27] MEDS: Latanoprost 0.005% 1 Bottle 1 DRP OPHTHALMIC (22:37)
[2025-04-27] MEDS: Aspirin E.C. 81 MG Tablet PO (22:39)
[2025-04-28 04:56] VITALS: PULSE 69; RESP 16; O2SAT 96
[2025-04-28 08:09] LABS: Hematocrit 29.1 % (37-47); Hemoglobin 9.0 g/dL (12.0-15.0); Immature Granulocytes Count 0.100 X10^3/uL (0.0-0.0); Mean Corp Hgb Conc 30.9 g/dL (32-36); Mean Corpuscular Volume 99.7 fL (81-99); Mean Platelet Vol. 10.4 fl (6.2-12.0); NRBC Flagged by Analyzer 0 % (0-5); Platelet Count 273 K/mm3 (150-450); RBC Distribution Width CV 13.9 % (11.6-14.6); RBC Distribution Width SD 51.4 fl (35.1-43.9); Red Blood Count 2.92 M/mm3 (4.2-5.4); White Blood Count 6.8 K/mm3 (4.4-11.0)
[2025-04-28 08:51] LABS: Anion Gap 8 (5-15); BUN 19 mg/dL (4-19); BUN/Creat Ratio 20.0 RATIO (10-20); Calcium,Total 9.4 mg/dL (7.6-11.0); Carbon Dioxide 26.0 mmol/L (21.0-32.0); Chloride 107 mmol/L (98-108); Estimated Creatinine Clearance 37.09 ml/min (50-250); Glucose 88 mg/dL (70-99); Potassium 5.1 mmol/L (3.3-5.1)
[2025-04-28 09:27] VITALS: BP 122/60; PULSE 63; RESP 17; TEMP 36.4; O2SAT 94
[2025-04-28] MEDS: Thiamine Hydrochloride 100 MG Tablet PO (09:42)
[2025-04-28] MEDS: Lactobacillis Acidophilus 1 CAP PO (09:42)
[2025-04-28] MEDS: Lidocaine 5% Patch 1 PATCH TOPICAL (09:43)
[2025-04-28] MEDS: Fluticasone/Salmeterol 232-14 Inhaler 1 PUFF INHALATION ×2 (09:45→22:50)
[2025-04-28] MEDS: Timolol 0.5% 5ML OPTH.BTL 1 DRP OPHTHALMIC ×2 (09:45→22:50)
[2025-04-28] MEDS: BRIMONIDINE 0.2% 5ML BOTTLE 1 DRP EACH EYE ×2 (09:45→22:47)
[2025-04-28] MEDS: Senna/Docusate Sodium 1 Tablet 2 TABLET PO ×2 (09:51→22:58)
[2025-04-28] MEDS: Tuberculin,Purif.prot.deriv. 50 TU/ML Vial 0.1 ML ID (09:51)
[2025-04-28] MEDS: Latanoprost 0.005% 1 Bottle 1 DRP OPHTHALMIC (22:46)
[2025-04-28] MEDS: Aspirin E.C. 81 MG Tablet PO (22:49)
[2025-04-29 08:51] VITALS: BP 108/65; PULSE 61; RESP 16; TEMP 36.4; O2SAT 93
[2025-04-29] MEDS: Senna/Docusate Sodium 1 Tablet 2 TABLET PO (08:57)
[2025-04-29] MEDS: Lactobacillis Acidophilus 1 CAP PO (08:58)
[2025-04-29] MEDS: Thiamine Hydrochloride 100 MG Tablet PO (08:58)
[2025-04-29] MEDS: Lidocaine 5% Patch 1 PATCH TOPICAL (08:59)
[2025-04-29] MEDS: BRIMONIDINE 0.2% 5ML BOTTLE 1 DRP EACH EYE ×2 (09:00→21:01)
[2025-04-29] MEDS: Fluticasone/Salmeterol 232-14 Inhaler 1 PUFF INHALATION ×2 (09:00→21:04)
[2025-04-29] MEDS: Timolol 0.5% 5ML OPTH.BTL 1 DRP OPHTHALMIC ×2 (09:00→21:01)
[2025-04-29] MEDS: Polyethylene Glycol 3350 17 GM PACKET PO (14:38)
--- NOTE | 2025-04-29 15:46 | NURSING ---
Patient c/o urinary frequency and pain on urination. Patient also requesting medication to help with constipation. Has been taking senna. Call placed to Dr. Nguyen. New order received for UA C&S and Magnesium Citrate 300ml PO daily PRN for constipation. VORB.
[2025-04-29] MEDS: Magnesium Citrate 300 ML PO (17:01)
[2025-04-29 19:33] LABS: Mucous, Urine 0 SEEN /hpf (<or=2+)
[2025-04-29 19:36] LABS: Color, Urine Yellow (Yellow); Glucose, Dipstick Normal (Normal); Ketone-Dipstick Negative (Negative); Leukocyte Esterase-Dipstick 25 /ul (Negative); Nitrite-Dipstick Positive (Negative); Occult Blood-Urine Negative /ul (Negative); Protein-Dipstick 15 mg/dl (Negative); Specific Gravity, Urine 1.010 (1.002-1.030); Urine Bilirubin Dipstick Negative (Negative)
[2025-04-29 19:52] LABS: Red Blood Cells-Urine 0-5 SEEN /hpf (0-5)
[2025-04-29 19:53] LABS: Squamous Epithelial Cells - UA 0-5 SEEN /hpf (5-10)
--- NOTE | 2025-04-29 19:56 | NURSING ---
Urine results received, Dr. Nguyen paged, Dr. Nguyen returned phone call, Dr. Nguyen updated on urine results, new order for: Nitrofurantoin 100mg po bid x 7 days, first dose now, orders verified by read back and verified correct.
[2025-04-29 20:00] VITALS: PULSE 62; RESP 16; O2SAT 94
[2025-04-29] MEDS: Latanoprost 0.005% 1 Bottle 1 DRP OPHTHALMIC (20:57)
[2025-04-29] MEDS: Aspirin E.C. 81 MG Tablet PO (21:03)
[2025-04-30 04:47] VITALS: PULSE 60; RESP 16; O2SAT 93
[2025-04-30 06:09] VITALS: O2SAT 93
[2025-04-30 06:17] LABS: Hematocrit 30.9 % (37-47); Hemoglobin 9.8 g/dL (12.0-15.0)
--- NOTE | 2025-04-30 07:05 | NURSING ---
Patient was administered soap suds enema per order, tolerated well with moderate amount of leakage, assisted up to BSC, xlarge BM results, patient voices relief from discomfort and pressure.
[2025-04-30 10:38] VITALS: BP 115/52; PULSE 60; RESP 16; TEMP 36.6; O2SAT 93
[2025-04-30] MEDS: Thiamine Hydrochloride 100 MG Tablet PO (10:44)
[2025-04-30] MEDS: Senna/Docusate Sodium 1 Tablet 2 TABLET PO (10:44)
[2025-04-30] MEDS: Lactobacillis Acidophilus 1 CAP PO (10:44)
[2025-04-30] MEDS: Lidocaine 5% Patch 1 PATCH TOPICAL (10:47)
[2025-04-30] MEDS: BRIMONIDINE 0.2% 5ML BOTTLE 1 DRP EACH EYE ×2 (10:48→22:01)
[2025-04-30] MEDS: Timolol 0.5% 5ML OPTH.BTL 1 DRP OPHTHALMIC ×2 (10:48→22:01)
[2025-04-30] MEDS: Fluticasone/Salmeterol 232-14 Inhaler 1 PUFF INHALATION ×2 (10:49→22:00)
[2025-04-30] MEDS: Latanoprost 0.005% 1 Bottle 1 DRP OPHTHALMIC (22:00)
[2025-04-30] MEDS: Aspirin E.C. 81 MG Tablet PO (22:02)
[2025-05-01 02:17] VITALS: PULSE 62; O2SAT 98
[2025-05-01 06:30] LABS: Hematocrit 32.8 % (37-47); Hemoglobin 10.2 g/dL (12.0-15.0)
[2025-05-01 06:55] VITALS: O2SAT 96
[2025-05-01 09:18] VITALS: BP 120/69; PULSE 60; RESP 15; TEMP 36.6; O2SAT 97
[2025-05-01] MEDS: Lactobacillis Acidophilus 1 CAP PO (09:21)
[2025-05-01] MEDS: Thiamine Hydrochloride 100 MG Tablet PO (09:21)
[2025-05-01] MEDS: Lidocaine 5% Patch 1 PATCH TOPICAL (09:22)
[2025-05-01] MEDS: Ergocalciferol 1.25 MG (50, 000 UNIT) Capsule PO (09:23)
[2025-05-01] MEDS: BRIMONIDINE 0.2% 5ML BOTTLE 1 DRP EACH EYE ×2 (09:24→21:17)
[2025-05-01] MEDS: Timolol 0.5% 5ML OPTH.BTL 1 DRP OPHTHALMIC ×2 (09:24→21:20)
[2025-05-01] MEDS: Fluticasone/Salmeterol 232-14 Inhaler 1 PUFF INHALATION ×2 (09:24→21:18)
[2025-05-01] MEDS: Senna/Docusate Sodium 1 Tablet 2 TABLET PO ×2 (09:44→21:20)
--- NOTE | 2025-05-01 10:40 | MDS.RN ---
Information for the MDS was obtained from review of the clinical record, interview of resident, staff, and direct observation of resident?s care.
--- NOTE | 2025-05-01 16:22 | CASEMGMT ---
Social Work Dtr requested this worker present to pt's room for discussion. SW presented to pt's room with pt and dtr, Aleah, at bedside. Dtr shared that pt and brother, Anthony, had discussions with family about moving into [place] or [place], and inquired about further information. SW educated to difference between [place] and [place]; [place] is not offered at every [place]. Informed of estimated pricing for base rate, levels of care and surcharge for additional occupant. Explained insurance does not cover any of that cost. Educated to skilled vs nonskilled services and health insurance coverage. Pt can received skilled HHC at [place] or [place]. Dtr explained the goal at DC is for pt to DC home, but family to pursue the [place] transition shortly after. SW offered a medical alert in the meantime. Dtr and pt agreed. SW provided resources for medical alert, [place], and provided list of skilled HHC agencies within geographical area, INN with insurance, that include quality and resource data via [employer] guide. Therapy to discuss pt's progress the following day, determine if pt can be adlib, then likely discuss DC for next week. Pt/dtr in agreement with plan and appreciative of time and information. SW will continue to follow. Time spent: 35 minutes Bree Puentes JOURNEYMAN PRESSMAN DEBT RECOVERY OFFICER
--- NOTE | 2025-05-01 18:45 | NURSING ---
dr alexis updated on urine culture/sensitivity results, new orders DC'd macrobid and start cefdinir. pt updated.
[2025-05-01 20:00] VITALS: PULSE 62; O2SAT 92
[2025-05-01] MEDS: Latanoprost 0.005% 1 Bottle 1 DRP OPHTHALMIC (21:15)
[2025-05-01] MEDS: Aspirin E.C. 81 MG Tablet PO (21:17)
[2025-05-02 06:46] VITALS: PULSE 60; O2SAT 98
[2025-05-02 08:00] VITALS: BP 120/55; PULSE 64; RESP 17; TEMP 36.3; O2SAT 90
[2025-05-02] MEDS: Fluticasone/Salmeterol 232-14 Inhaler 1 PUFF INHALATION ×2 (08:01→21:33)
[2025-05-02] MEDS: Lidocaine 5% Patch 1 PATCH TOPICAL (08:01)
[2025-05-02] MEDS: Timolol 0.5% 5ML OPTH.BTL 1 DRP OPHTHALMIC ×2 (08:01→21:32)
[2025-05-02] MEDS: BRIMONIDINE 0.2% 5ML BOTTLE 1 DRP EACH EYE ×2 (08:01→21:29)
[2025-05-02] MEDS: Thiamine Hydrochloride 100 MG Tablet PO (08:06)
[2025-05-02] MEDS: Lactobacillis Acidophilus 1 CAP PO (08:06)
[2025-05-02] MEDS: Senna/Docusate Sodium 1 Tablet 2 TABLET PO ×2 (08:06→21:30)
[2025-05-02 08:34] VITALS: O2SAT 95
[2025-05-02] MEDS: Aspirin E.C. 81 MG Tablet PO (21:34)
[2025-05-02] MEDS: Latanoprost 0.005% 1 Bottle 1 DRP OPHTHALMIC (21:35)
[2025-05-03 07:04] VITALS: O2SAT 94
[2025-05-03 09:42] VITALS: BP 120/67; PULSE 66; RESP 16; TEMP 36.6; O2SAT 95
[2025-05-03] MEDS: Lactobacillis Acidophilus 1 CAP PO (09:47)
[2025-05-03] MEDS: Thiamine Hydrochloride 100 MG Tablet PO (09:47)
[2025-05-03] MEDS: Timolol 0.5% 5ML OPTH.BTL 1 DRP OPHTHALMIC ×2 (09:48→22:10)
[2025-05-03] MEDS: Senna/Docusate Sodium 1 Tablet 2 TABLET PO (09:48)
[2025-05-03] MEDS: Fluticasone/Salmeterol 232-14 Inhaler 1 PUFF INHALATION ×2 (09:50→22:12)
[2025-05-03] MEDS: Lidocaine 5% Patch 1 PATCH TOPICAL (09:50)
[2025-05-03] MEDS: BRIMONIDINE 0.2% 5ML BOTTLE 1 DRP EACH EYE ×2 (09:50→22:09)
[2025-05-03] MEDS: Latanoprost 0.005% 1 Bottle 1 DRP OPHTHALMIC (22:09)
[2025-05-03] MEDS: Aspirin E.C. 81 MG Tablet PO (22:12)
[2025-05-04 05:22] VITALS: PULSE 66; RESP 18; O2SAT 99
[2025-05-04] MEDS: Fluticasone/Salmeterol 232-14 Inhaler 1 PUFF INHALATION ×2 (08:45→21:51)
[2025-05-04] MEDS: Senna/Docusate Sodium 1 Tablet 2 TABLET PO ×2 (08:46→21:57)
[2025-05-04] MEDS: Timolol 0.5% 5ML OPTH.BTL 1 DRP OPHTHALMIC ×2 (08:46→21:54)
[2025-05-04] MEDS: Lidocaine 5% Patch 1 PATCH TOPICAL (08:47)
[2025-05-04] MEDS: Lactobacillis Acidophilus 1 CAP PO (08:48)
[2025-05-04] MEDS: Thiamine Hydrochloride 100 MG Tablet PO (08:48)
[2025-05-04] MEDS: BRIMONIDINE 0.2% 5ML BOTTLE 1 DRP EACH EYE ×2 (08:50→21:53)
[2025-05-04 16:00] VITALS: BP 121/64; PULSE 64; RESP 16; TEMP 36.6; O2SAT 95
[2025-05-04] MEDS: Latanoprost 0.005% 1 Bottle 1 DRP OPHTHALMIC (21:52)
[2025-05-04] MEDS: Aspirin E.C. 81 MG Tablet PO (21:58)
[2025-05-05 07:17] LABS: Hematocrit 29.1 % (37-47); Hemoglobin 9.1 g/dL (12.0-15.0); Immature Granulocytes Count 0.110 X10^3/uL (0.0-0.0); Mean Corp Hgb Conc 31.3 g/dL (32-36); Mean Corpuscular Volume 99.3 fL (81-99); Mean Platelet Vol. 9.6 fl (6.2-12.0); NRBC Flagged by Analyzer 0 % (0-5); Platelet Count 291 K/mm3 (150-450); RBC Distribution Width CV 14.2 % (11.6-14.6); RBC Distribution Width SD 51.0 fl (35.1-43.9); Red Blood Count 2.93 M/mm3 (4.2-5.4); White Blood Count 8.4 K/mm3 (4.4-11.0)
[2025-05-05 07:31] LABS: Anion Gap 8 (5-15); BUN 14 mg/dL (4-19); BUN/Creat Ratio 14.7 RATIO (10-20); Calcium,Total 9.3 mg/dL (7.6-11.0); Carbon Dioxide 23.4 mmol/L (21.0-32.0); Chloride 109 mmol/L (98-108); Estimated Creatinine Clearance 36.33 ml/min (50-250); Glucose 96 mg/dL (70-99); Potassium 4.7 mmol/L (3.3-5.1)
[2025-05-05 08:29] VITALS: O2SAT 94
[2025-05-05 08:49] VITALS: BP 119/60; PULSE 60; RESP 14; TEMP 36.6; O2SAT 94
[2025-05-05] MEDS: Lidocaine 5% Patch 1 PATCH TOPICAL (08:51)
[2025-05-05] MEDS: Fluticasone/Salmeterol 232-14 Inhaler 1 PUFF INHALATION ×2 (08:51→21:09)
[2025-05-05] MEDS: Timolol 0.5% 5ML OPTH.BTL 1 DRP OPHTHALMIC ×2 (08:51→21:08)
[2025-05-05] MEDS: BRIMONIDINE 0.2% 5ML BOTTLE 1 DRP EACH EYE ×2 (08:51→21:08)
[2025-05-05] MEDS: Thiamine Hydrochloride 100 MG Tablet PO (08:51)
[2025-05-05] MEDS: Lactobacillis Acidophilus 1 CAP PO (08:52)
[2025-05-05] MEDS: Senna/Docusate Sodium 1 Tablet 2 TABLET PO ×2 (08:52→21:13)
[2025-05-05 20:00] VITALS: PULSE 62; RESP 18; O2SAT 99
[2025-05-05] MEDS: Latanoprost 0.005% 1 Bottle 1 DRP OPHTHALMIC (21:06)
[2025-05-05] MEDS: Aspirin E.C. 81 MG Tablet PO (21:12)
[2025-05-06 05:50] VITALS: PULSE 60; O2SAT 96
[2025-05-06 06:20] LABS: Hematocrit 28.6 % (37-47); Hemoglobin 8.9 g/dL (12.0-15.0)
[2025-05-06 09:10] VITALS: BP 103/56; PULSE 63; RESP 16; TEMP 36.9; O2SAT 94
[2025-05-06] MEDS: Fluticasone/Salmeterol 232-14 Inhaler 1 PUFF INHALATION ×2 (09:18→22:16)
[2025-05-06] MEDS: Lidocaine 5% Patch 1 PATCH TOPICAL (09:19)
[2025-05-06] MEDS: Senna/Docusate Sodium 1 Tablet 2 TABLET PO (09:20)
[2025-05-06] MEDS: Timolol 0.5% 5ML OPTH.BTL 1 DRP OPHTHALMIC ×2 (09:20→22:17)
[2025-05-06] MEDS: BRIMONIDINE 0.2% 5ML BOTTLE 1 DRP EACH EYE ×2 (09:20→22:16)
[2025-05-06] MEDS: Lactobacillis Acidophilus 1 CAP PO (09:21)
[2025-05-06] MEDS: Thiamine Hydrochloride 100 MG Tablet PO (09:21)
[2025-05-06] MEDS: Aspirin E.C. 81 MG Tablet PO (22:16)
[2025-05-06] MEDS: Latanoprost 0.005% 1 Bottle 1 DRP OPHTHALMIC (22:16)
[2025-05-07 07:34] VITALS: O2SAT 94
[2025-05-07 09:47] VITALS: BP 118/52; PULSE 62; RESP 16; TEMP 35.6; O2SAT 97
[2025-05-07] MEDS: Fluticasone/Salmeterol 232-14 Inhaler 1 PUFF INHALATION ×2 (09:48→22:34)
[2025-05-07] MEDS: Lidocaine 5% Patch 1 PATCH TOPICAL (09:48)
[2025-05-07] MEDS: Senna/Docusate Sodium 1 Tablet 2 TABLET PO (09:53)
[2025-05-07] MEDS: Thiamine Hydrochloride 100 MG Tablet PO (09:54)
[2025-05-07] MEDS: Lactobacillis Acidophilus 1 CAP PO (09:54)
[2025-05-07] MEDS: BRIMONIDINE 0.2% 5ML BOTTLE 1 DRP EACH EYE ×2 (09:55→22:35)
[2025-05-07] MEDS: Timolol 0.5% 5ML OPTH.BTL 1 DRP OPHTHALMIC ×2 (09:55→22:35)
[2025-05-07 14:14] VITALS: PULSE 62; RESP 17; O2SAT 96
--- NOTE | 2025-05-07 19:51 | NURSING ---
Patient c/o neck pain that radiates to occipital scalp to top of head since fall on 04/16/25 and numbness/tingling to left hand. Notified Dr. Nguyen of CT results on February 15 and and new complaint of head/neck pain/left hand numbness since most recent fall. New order received for CT scan cervical CT no contrast. Order repeated back and verified with Dr. Nguyen. No pre-auth needed.
[2025-05-07] MEDS: Aspirin E.C. 81 MG Tablet PO (22:35)
[2025-05-07] MEDS: Latanoprost 0.005% 1 Bottle 1 DRP OPHTHALMIC (22:35)
[2025-05-08 06:18] VITALS: PULSE 60; RESP 16; O2SAT 95
[2025-05-08 07:35] VITALS: O2SAT 95
[2025-05-08] MEDS: Senna/Docusate Sodium 1 Tablet 2 TABLET PO (08:50)
[2025-05-08] MEDS: Lactobacillis Acidophilus 1 CAP PO (08:50)
[2025-05-08] MEDS: Thiamine Hydrochloride 100 MG Tablet PO (08:52)
[2025-05-08] MEDS: Timolol 0.5% 5ML OPTH.BTL 1 DRP OPHTHALMIC ×2 (08:53→22:15)
[2025-05-08] MEDS: BRIMONIDINE 0.2% 5ML BOTTLE 1 DRP EACH EYE ×2 (08:53→22:13)
[2025-05-08] MEDS: Fluticasone/Salmeterol 232-14 Inhaler 1 PUFF INHALATION ×2 (08:53→22:15)
[2025-05-08] MEDS: Lidocaine 5% Patch 1 PATCH TOPICAL (13:27)
[2025-05-08 13:42] VITALS: BP 114/63; PULSE 63; RESP 18; TEMP 36.6; O2SAT 95
[2025-05-08] MEDS: Latanoprost 0.005% 1 Bottle 1 DRP OPHTHALMIC (22:12)
[2025-05-08] MEDS: Aspirin E.C. 81 MG Tablet PO (22:15)
--- NOTE | 2025-05-09 02:37 | NURSING ---
Written communication left for Dr. Nguyen regarding pt reporting continued pain with urination. Last dose of antibiotics given 05/08/25 for UTI.
--- NOTE | 2025-05-09 06:21 | NURSING ---
Written communication left for Dr. Nguyen regarding pt's complaints of having increased difficulty falling asleep last night. Pt currently taking 50 mg of Trazodone QHS. Education provided to pt related to medication use. Call light in reach. Pt declines needs for further assistance at this time.
[2025-05-09 09:25] VITALS: BP 141/73; PULSE 65; RESP 16; TEMP 36.1; O2SAT 96
[2025-05-09] MEDS: Lactobacillis Acidophilus 1 CAP PO (09:30)
[2025-05-09] MEDS: Thiamine Hydrochloride 100 MG Tablet PO (09:31)
[2025-05-09] MEDS: Senna/Docusate Sodium 1 Tablet 2 TABLET PO ×2 (09:31→21:17)
[2025-05-09] MEDS: Lidocaine 5% Patch 1 PATCH TOPICAL (09:31)
[2025-05-09] MEDS: BRIMONIDINE 0.2% 5ML BOTTLE 1 DRP EACH EYE ×2 (09:32→21:19)
[2025-05-09] MEDS: Fluticasone/Salmeterol 232-14 Inhaler 1 PUFF INHALATION ×2 (09:32→21:15)
[2025-05-09] MEDS: Timolol 0.5% 5ML OPTH.BTL 1 DRP OPHTHALMIC ×2 (09:41→21:20)
[2025-05-09 15:19] VITALS: BMI 28.1
[2025-05-09 15:29] LABS: Mucous, Urine 0 SEEN /hpf (<or=2+)
[2025-05-09 17:26] LABS: Color, Urine Amber (Yellow); Glucose, Dipstick Normal (Normal); Ketone-Dipstick Negative (Negative); Leukocyte Esterase-Dipstick Negative /ul (Negative); Nitrite-Dipstick Positive (Negative); Occult Blood-Urine Negative /ul (Negative); Protein-Dipstick 15 mg/dl (Negative); Specific Gravity, Urine 1.015 (1.002-1.030)
[2025-05-09 17:33] LABS: Urine Bilirubin Dipstick 6 mg/dL (Negative)
[2025-05-09 18:57] LABS: Squamous Epithelial Cells - UA 0-5 SEEN /hpf (5-10)
[2025-05-09 18:59] LABS: Red Blood Cells-Urine 0-5 SEEN /hpf (0-5)
[2025-05-09 21:00] VITALS: PULSE 76; O2SAT 97
[2025-05-09] MEDS: Latanoprost 0.005% 1 Bottle 1 DRP OPHTHALMIC (21:17)
[2025-05-09] MEDS: Aspirin E.C. 81 MG Tablet PO (21:22)
[2025-05-10 05:47] VITALS: PULSE 68; O2SAT 96
[2025-05-10] MEDS: Lactobacillis Acidophilus 1 CAP PO (09:32)
[2025-05-10] MEDS: Thiamine Hydrochloride 100 MG Tablet PO (09:33)
[2025-05-10] MEDS: BRIMONIDINE 0.2% 5ML BOTTLE 1 DRP EACH EYE ×2 (09:33→22:21)
[2025-05-10] MEDS: Fluticasone/Salmeterol 232-14 Inhaler 1 PUFF INHALATION ×2 (09:33→22:21)
[2025-05-10] MEDS: Lidocaine 5% Patch 1 PATCH TOPICAL (09:35)
[2025-05-10] MEDS: Senna/Docusate Sodium 1 Tablet 2 TABLET PO (09:35)
[2025-05-10] MEDS: Timolol 0.5% 5ML OPTH.BTL 1 DRP OPHTHALMIC ×2 (09:36→22:21)
[2025-05-10 10:00] VITALS: BP 119/64; PULSE 60; RESP 16; TEMP 36.3; O2SAT 90
--- NOTE | 2025-05-10 15:29 | CASEMGMT ---
Social Work OLGA spoke with pt at bedside to follow up at [place]. Pt stated she was hoping to go home on Thursday. SW explored needs further and offered to call dtr, Aleah, to include in conversation. Pt agreed. Phoned Aleah. Discussed DC plans. Pt requesting skilled HHC, resume [facility] services, and denied DME needs. Pt will DC home with brother. Answered dtr's questions. SW confirmed pt will be getting assistance with meds and finances at [place]. Dtr is taking over finances and has all bills on auto-pay. Pt was doing meds prior, but [facility] nurse Esther was getting meds from pharmacy, and can assist further. Dtr voiced mom is still good with her meds. SW kindly explained that COLLECTION AGENT is reporting cognitive impairment and dynamics of home and situations are difficult to accurately navigate. Pt confirmed that assessment and dtr appreciative of insight. SW spoke with pt and dtr about 30 minutes. Concluded with DC 05/12. Readministered HHC list and pt provided preferences - [facility] first choice. Brother will transport pt. - OLGA phoned referral to [facility] for PT/OT/ST. OLGA emailed William at [facility] to resume services. Plan: DC home with brother 05/12, [facility] PT/OT/ST, [facility] Bree DUFFW
--- NOTE | 2025-05-10 18:19 | NURSING ---
Patient C/O pain to right calf. Bruising noted and some swelling. Dr. Nguyen made aware and order for Doppler. Patient aware.
--- NOTE | 2025-05-10 21:40 | DS.PCM_ITS ---
Providers Date of Admission: 04/20/25 Primary Care Physician: Dr. Ken Contrears MD Reason For Visit: FALLS, FAILURE TO THRIVE Diagnosis Discharge Diagnosis (1) Debility: Status: Acute Code(s): R53.81 - Other malaise (2) Laceration of occipital scalp: Status: Inactive Code(s): S01.01XA - Laceration without foreign body of scalp, initial encounter (3) Fall: Status: Inactive Code(s): W19.XXXA - Unspecified fall, initial encounter (4) Loss of consciousness: Status: Acute Code(s): R40.20 - Unspecified coma (5) Acute kidney injury: Status: Acute Code(s): N17.9 - Acute kidney failure, unspecified (6) Muscle spasm: Status: Acute Code(s): M62.838 - Other muscle spasm (7) B12 deficiency: Status: Acute Code(s): E53.8 - Deficiency of other specified B group vitamins (8) Depression: Status: Acute Code(s): F32.A - Depression, unspecified (9) Constipation: Status: Inactive Code(s): K59.00 - Constipation, unspecified (10) Asthma: Status: Chronic Code(s): J45.909 - Unspecified asthma, uncomplicated Qualifiers: Asthma severity: mild Asthma persistence: intermittent Asthma complication type: uncomplicated Qualified Code(s): J45.20 - Mild intermittent asthma, uncomplicated (11) Glaucoma: Status: Acute Code(s): H40.9 - Unspecified glaucoma (12) Hypothyroidism: Status: Chronic Code(s): E03.9 - Hypothyroidism, unspecified (13) Osteoarthritis: Status: Acute Code(s): M19.90 - Unspecified osteoarthritis, unspecified site (14) Essential (primary) hypertension: Status: Acute Code(s): I10 - Essential (primary) hypertension (15) Allergic rhinitis: Status: Acute Code(s): J30.9 - Allergic rhinitis, unspecified (16) Anxiety: Status: Acute Code(s): F41.9 - Anxiety disorder, unspecified Plan 89 year old female with below past medical hospitalized for fall, loss of consciousness, amnesia (stroke ruled out, seizure unlikely) complicated by scalp laceration, acute kidney injury, admitted to TCU with debility, here for rehabilitation, strengthening, prior to discharge home alone. * Debility - PT/OT. * Pain - Tylenol 1000mg qhs. * Bowel - Miralax 17gm daily prn, Senna/colace 2 tablets bid prn. * Adult immunization - Administer pneumonia vaccine, covid vaccine, flu vaccine as appropriate. * DVT prophylaxis - Lovenox 40mg sc daily. * Asthma - Fluticasone/Salmeterol 232-14 1 puff bid, Albuterol 2.5mg neb q4 prn, Albuterol 1-2 puff q4 prn. * Vitamin C deficiency - Vitamin C 250mg bid. * CV prophylaxis - Aspirin 81mg qhs. * Glaucoma - Brimonidine 1gtt ou bid, Latanoprost 1gtt ou qpm, Timolol 1gtt ou bid. * Vitamin D deficiency - D 1.25mg qmonth. * Edema - Furosemide 10mg qam. * GI prophylaxis - Lactobacillus 1 capsule daily. * Mood disorder - Lamictal 25m gdaily. * Hypothyroidism - Levothyroxine 88mcg 5 days/week. * Hypertension - Lisinopril 20mg daily. * Allergic rhinitis - Loratadine 10mg daily. * Nutrition - MVI 1 tablet daily. * GERD - Pantoprazole 40mg daily. * Alcohol use - Thiamine 100mg daily. * Muscle spasm - Tizanidine 2mg q8 prn. * OAB - Gemtesa 75mg daily. The following psychotropic medication was present on admission: Lorazepam 0.25mg bid taper. Psychotropic medication therapy is indicated for a diagnosis of: Anxiety. Based on my clinical evaluation, continuation of the medication is necessary at this time. Gradual dose reduction plan (select one): __x__ GDR will be attempted. Will monitor patient symptoms and behaviors in response to GDR. ____ GRD contraindicated. Reason contraindicated: The following psychotropic medication was present on admission: Paxil 40mg daily. Psychotropic medication therapy is indicated for a diagnosis of: Depression. Based on my clinical evaluation, continuation of the medication is necessary at this time. Gradual dose reduction plan (select one): ____ GDR will be attempted. Will monitor patient symptoms and behaviors in response to GDR. _x__ GRD contraindicated. 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 The following psychotropic medication was present on admission: Trazodone 50mg qhs. Psychotropic medication therapy is indicated for a diagnosis of: Insomnia. Based on my clinical evaluation, continuation of the medication is necessary at this time. Gradual dose reduction plan (select one): ____ GDR will be attempted. Will monitor patient symptoms and behaviors in response to GDR. _x___ GRD contraindicated. 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 Medications at Discharge Home Medications multivitamin 1 tab PO DAILY vitamin 11/17/16 paroxetine HCl 10 mg tablet 40 mg PO DAILY mental health 11/17/16 aspirin 81 mg tablet,delayed release 81 mg PO QHS heart health 11/27/17 lamotrigine 25 mg tablet,extended release 24 hr 25 mg PO DAILY mood/seizures 11/27/17 loratadine 10 mg tablet (Claritin) 10 mg PO PRN allergies 12/27/20 brimonidine 0.2 %-timolol 0.5 % eye drops (Combigan) 1 drp ophthalmic (eye) BID eye health 01/10/21 latanoprost 0.005 % eye drops, emulsion 1 drp ophthalmic (eye) QPM eye health 01/10/21 pantoprazole 20 mg tablet,delayed release 40 mg PO DAILY reflux 01/10/21 vibegron 75 mg tablet (Gemtesa) 75 mg PO DAILY bladder 08/07/21 ascorbic acid (vitamin C) 250 mg tablet 250 mg PO BID health maintenance 08/19/22 lactobacillus combination no.9 4 billion cell capsule (Adult 50 Plus Probiotic) 4,000 mmu cells PO DAILY gut health 08/19/22 ergocalciferol (vitamin D2) 1,250 mcg (50,000 unit) capsule 50,000 unit PO QMONTH vitamin 09/10/22 levothyroxine 88 mcg tablet 88 mcg PO .COMPLEX thyroid 07/01/24 fluticasone furoate 100 mcg-vilanterol 25 mcg/dose inhalation powder (Breo Ellipta) 1 inh inhalation DAILY breathing #60 ea 08/22/24 lisinopril 20 mg tablet 20 mg PO DAILY blood pressure #90 tabs 03/31/25 furosemide 20 mg tablet 10 mg PO QAM Diuretic 04/17/25 thiamine HCl (vitamin B1) 100 mg tablet 100 mg PO BREAKFAST supplement #0 tabs 04/20/25 tizanidine 2 mg tablet 2 mg PO Q8H PRN PRN muscle spasm #0 tabs 04/20/25 trazodone 50 mg tablet 50 mg PO QHS insomnia #0 tabs 04/20/25 acetaminophen 500 mg tablet 1,000 mg (2 x 500 mg) PO TID #0 tabs 05/10/25 lidocaine 5 % topical patch 1 patch topical DAILY 30 days #30 ea 05/10/25 Hospital Course Operations None Procedures None Summary of Care Provided Minutes Spent on Discharge: 35 Hospital Course: 89 year old female with below past medical hospitalized for fall, loss of consciousness, amnesia (stroke ruled out, seizure unlikely) complicated by scalp laceration, acute kidney injury, admitted to TCU with debility, here for rehabilitation, strengthening, prior to discharge home alone. 04/29/2025 P. Mirabilis UTI resolved with antibiotic treatment. Discharge home with brother 05/12/2025, [facility] PT/OT/ST, CCN. Physical Exam Const alert General Appearance: cooperative HEENT normocephalic Eyes PERRL and EOMs intact bilaterally Neck supple, no JVD and no carotid bruits Resp normal respiratory effort, normal air movement and clear to auscultation bilaterally Cardio regular rate and regular rhythm GI normal to inspection, nondistended, normoactive bowel sounds, non-tender and non-distended Extremity normal capillary refill General Extremity: Negative for edema Skin no rashes or lesions noted General Skin Exam: no breakdown Psych affect normal Appearance: appropriate Weight / BMI Weight Weight: 69.4 kg Body Mass Index (BMI) 28.1 ABG / Lab / Microbiology Data 05/06/25 06:07 05/05/25 06:58 Microbiology: Microbiology 05/09/25 15:15 Urine Catheter - Catheter Urine Culture - Preliminary Culture exhibits no growth. 04/29/25 19:15 Urine Catheter - Catheter Urine Culture - Final Proteus mirabilis 05/01/25 06:21 Nasal Secretion SARS-CoV-2 Antigen (Rapid) - Final 04/29/25 06:13 Nasal Secretion SARS-CoV-2 Antigen (Rapid) - Final 04/27/25 05:35 Nasal Secretion SARS-CoV-2 Antigen (Rapid) - Final D/C Instructions Discharge Activity: Return to Normal Activity, May Shower and Use Walker Weight Bearing Status: Weight bearing as tolerated Call your doctor if you observe: Fever of 101 or Higher, Inability to urinate, Inability to have a bowel movement, Shortness of breath, Dizziness, Fainting spells, Swelling in the ankles, Chest pain and Uncontrolled pain DC O2, CPAP, BIPAP Needs Home O2 Discharge instructions: No Additional Instructions: Discharge home with 05/12/2025, [facility] PT/OT/ST, CCN. Meaningful Use Info Meaningful Use Meaningful Use Diagnoses (Choose all that apply): None applicable Discharge Plan Admission Admit Date/Time: 04/20/25 17:05 Primary Reason for Your Visit: Debility. Attending Provider: Basilio Nguyen Chi Primary Care Provider: Ken Contreras Instructions Additional Instructions / Restrictions: Discharge home with savageer 05/12/2025, [facility] PT/OT/ST, CCN. Discharge Orders/Prescriptions Prescriptions: New acetaminophen 500 mg Tablet 1,000 mg PO TID Qty: 0 0RF lidocaine 5 % Adhesive Patch,Medicated 1 patch topical DAILY 30 Days Qty: 30 0RF Protocol: *Topical Application Instructions APPLICATION INSTRUCTIONS: Shoulder pain. Continued Combigan 0.2-0.5 % drops 1 drp ophthalmic (eye) BID latanoprost 0.005 % drops, emulsion 1 drp ophthalmic (eye) QPM pantoprazole 20 mg tablet,delayed release (DR/EC) 40 mg PO DAILY loratadine [Claritin] 10 mg tablet 10 mg PO PRN Gemtesa 75 mg tablet 75 mg PO DAILY ascorbic acid (vitamin C) 250 mg tablet 250 mg PO BID Adult 50 Plus Probiotic 4 billion cell capsule 4,000 mmu cells PO DAILY Rx Instructions: administer with a meal lisinopril 20 mg tablet 20 mg PO DAILY Qty: 90 3RF multivitamin 1 EACH tablet 1 tab PO DAILY Patient Comments: supplement paroxetine HCl 10 MG tablet 40 mg PO DAILY Patient Comments: anxiety/depression ergocalciferol (vitamin D2) 1,250 mcg (50,000 unit) capsule 50,000 unit PO QMONTH Patient Comments: Next dose Thursday levothyroxine 88 mcg tablet 88 mcg PO .COMPLEX Patient Comments: hypothyroidism Rx Instructions: 88 mcg PO MOTUWETHFR; aspirin 81 MG tablet 81 mg PO QHS lamotrigine 25 MG tablet extended release 24hr 25 mg PO DAILY furosemide 20 mg tablet 10 mg PO QAM tizanidine 2 mg Tablet 2 mg PO Q8H PRN PRN (Reason: muscle spasm) Qty: 0 0RF trazodone 50 mg Tablet 50 mg PO QHS Qty: 0 0RF thiamine HCl (vitamin B1) 100 mg Tablet 100 mg PO BREAKFAST Qty: 0 0RF fluticasone furoate-vilanterol [Breo Ellipta] 100-25 mcg/dose blister with device 1 inh inhalation DAILY Qty: 60 6RF Discontinued albuterol sulfate 2.5 mg /3 mL (0.083 %) solution for nebulization 2.5 mg INHALATION Q4H PRN (Reason: Sob &/Or Wheezing) ketotifen fumarate 0.025 % (0.035 %) drops 1 drp ophthalmic (eye) BID Rx Instructions: administer at least 8 hours apart albuterol sulfate 90 mcg/actuation HFA aerosol inhaler 1 - 2 puff INHALATION Q4H PRN PRN (Reason: Shortness Of Breath) Qty: 18 6RF acetaminophen 325 MG tablet 650 mg PO QHS Patient Comments: pain polyethylene glycol 3350 17 GM packet 17 gm PO PRN sennosides-docusate sodium [Stimulant Laxative Plus] 8.6-50 mg Tablet 2 tab PO BID PRN PRN (Reason: Constipation) Qty: 0 0RF lorazepam 0.5 mg Tablet 0.25 mg PO BID Qty: 0 0RF Rx Instructions: Taper 0.25 mg twice daily for 3 days and then 0.25 mg daily for 3 days and then stop nitrofurantoin monohyd/m-cryst [Macrobid] 100 mg capsule 100 mg PO BID 3 Days Qty: 6 0RF Rx Instructions: must administer with a meal/food estradiol 0.01 % (0.1 mg/gram) cream 1 g vaginal 3XW 90 Days Qty: 42.5 3RF Referrals / Follow Up: Ken Contreras MD [Primary Care Provider] - 05/15/25 2:40 pm Disposition Disposition (needs filled in before D/C Order can be placed): Home Health Service
[2025-05-10] MEDS: Latanoprost 0.005% 1 Bottle 1 DRP OPHTHALMIC (22:21)
[2025-05-10] MEDS: Aspirin E.C. 81 MG Tablet PO (22:22)
[2025-05-11 09:21] VITALS: BP 131/66; PULSE 63; RESP 16; TEMP 36.2; O2SAT 93
[2025-05-11] MEDS: Lidocaine 5% Patch 1 PATCH TOPICAL (09:29)
[2025-05-11] MEDS: Fluticasone/Salmeterol 232-14 Inhaler 1 PUFF INHALATION ×2 (09:29→21:15)
[2025-05-11] MEDS: Senna/Docusate Sodium 1 Tablet 2 TABLET PO (09:31)
[2025-05-11] MEDS: Thiamine Hydrochloride 100 MG Tablet PO (09:31)
[2025-05-11] MEDS: Lactobacillis Acidophilus 1 CAP PO (09:31)
[2025-05-11] MEDS: BRIMONIDINE 0.2% 5ML BOTTLE 1 DRP EACH EYE ×2 (09:31→21:15)
[2025-05-11] MEDS: Timolol 0.5% 5ML OPTH.BTL 1 DRP OPHTHALMIC ×2 (09:37→21:15)
--- NOTE | 2025-05-11 11:35 | NURSING ---
doppler done by cardiovascular physician assistant, negative for clot.
[2025-05-11] MEDS: Latanoprost 0.005% 1 Bottle 1 DRP OPHTHALMIC (21:15)
[2025-05-11] MEDS: Aspirin E.C. 81 MG Tablet PO (21:21)
[2025-05-11 21:25] VITALS: PULSE 59; RESP 16; O2SAT 96
[2025-05-12 06:11] VITALS: PULSE 60; RESP 16; O2SAT 99
[2025-05-12] MEDS: Thiamine Hydrochloride 100 MG Tablet PO (08:17)
[2025-05-12] MEDS: Lactobacillis Acidophilus 1 CAP PO (08:17)
[2025-05-12] MEDS: BRIMONIDINE 0.2% 5ML BOTTLE 1 DRP EACH EYE (08:17)
[2025-05-12] MEDS: Fluticasone/Salmeterol 232-14 Inhaler 1 PUFF INHALATION (08:18)
[2025-05-12] MEDS: Lidocaine 5% Patch 1 PATCH TOPICAL (08:19)
[2025-05-12] MEDS: Senna/Docusate Sodium 1 Tablet 2 TABLET PO (08:20)
[2025-05-12] MEDS: Timolol 0.5% 5ML OPTH.BTL 1 DRP OPHTHALMIC (08:21)
[2025-05-12 10:00] VITALS: BP 110/61; PULSE 61; RESP 16; TEMP 36.7; O2SAT 95
--- NOTE | 2025-05-12 12:10 | CASEMGMT ---
Social Work SW completed BIMS () and PHQ-2 () for MDS assessment. Bree Puentes [employer]
== END 2025-05-12 13:20 | disposition home health service (06) | DRG 949 ==
PROVIDERS: Admitting Provider Family Medicine Geriatric Medicine; PCP Internal Medicine; Visit Provider Family Medicine Geriatric Medicine
DX: S06.9X1D Unspecified intracranial injury with loss of consciousness of 30 minutes or less, subsequent encounter (principal); N39.0 Urinary tract infection, site not specified; B96.4 Proteus (mirabilis) (morganii) as the cause of diseases classified elsewhere; E03.9 Hypothyroidism, unspecified; I10 Essential (primary) hypertension; J45.20 Mild intermittent asthma, uncomplicated; F39 Unspecified mood [affective] disorder; F32.A Depression, unspecified; J44.89 Other specified chronic obstructive pulmonary disease; M62.838 Other muscle spasm; M19.90 Unspecified osteoarthritis, unspecified site; E55.9 Vitamin D deficiency, unspecified; K21.9 Gastro-esophageal reflux disease without esophagitis; J30.9 Allergic rhinitis, unspecified; F41.9 Anxiety disorder, unspecified; W19.XXXD Unspecified fall, subsequent encounter; E53.8 Deficiency of other specified B group vitamins; F10.90 Alcohol use, unspecified, uncomplicated; S01.01XD Laceration without foreign body of scalp, subsequent encounter; R41.3 Other amnesia; H40.9 Unspecified glaucoma; Z79.51 Long term (current) use of inhaled steroids; Z79.899 Other long term (current) drug therapy; Z87.891 Personal history of nicotine dependence; Z79.890 Hormone replacement therapy; Z95.0 Presence of cardiac pacemaker; N32.81 Overactive bladder; G47.00 Insomnia, unspecified
CPT/HCPCS: 36415; 80048; 81001; 85014; 85018; 85025; 87077; 87086; 87088; 87186; 87811; 92507; 92523; 97110; 97116; 97129; 97162; 97166; 97530; 97535; A4216

== ENCOUNTER → 2025-05-07 | Outpatient (CLI) | payer MEDICARE, BC, SELFPAY ==
--- OUTSIDE RECORDS SUMMARY | 2025-05-07 20:16 | XMS RPT_ITS | CCD ---
Author Organization [facility] Care Team Providers Care Shingle Carrier Name Role Phone DoinicioJayde Unavailable Unavailable York Jayde L Unavailable Unavailable Yensho CLEANER, Taylor A Unavailable Unavailab le Rajesh TODD, Taylor A Unavailable Unavailab Ken Maldonado MD Primary Care Provider Moodiscaroline, Marquise F Unavailable Dr. Ken Whelan Primary Care Provider Dr. Ken Whelan Referring Provider Sam STEVE, PA Latonya Valdez Attending Provider Dr. Marquise Javed Attending Provider Dr. Marquise Javed Referring Provider Dr. Guzman Jolly Referring Provider Dr. Guzman Jolly Other Provider Dr. Epifanio Witt Attending Provider Ken Whelan MD Primary Care Provider Moodispaw, Marquise F Unavailable Eseiscaroline, Marquise F Unavailable Ken Whelan MD Primary Care Provider Moodiscaroline, Marquise F Unavailable Dr. Ken Whelan Primary Care Provider Dr. Ken Whelan Referring Provider Taylor Arce Attending Provider Unavailable Radha HOOP BENDING MACHINE OPERATOR, HOOP BENDING MACHINE OPERATOR-C Irene Attending Provider Radha HOOP BENDING MACHINE OPERATOR, HOOP BENDING MACHINE OPERATOR-C Irene Referring Provider Dr. Ken Whelan Primary Care Provider Dr. Zane Mcpherson Attending Provider Dr. Zane Mcpherson Referring Provider Dr. Ken Whelan Primary Care Provider Dr. Ken Whelan Referring Provider Dr. Jaswant Luevano Attending Provider Dat HOOP BENDING MACHINE OPERATOR, HOOP BENDING MACHINE OPERATOR-C Amanda Attending Provider Tello TONEY, Marquise Ivey Unavailable Ben, Dr. Rogers Primary Care Provider Ben, Dr. Rogers Referring Provider Taylor Arce Attending Provider Unavailable Dat HOOP BENDING MACHINE OPERATOR, HOOP BENDING MACHINE OPERATOR-C Amanda Attending Provider Rip Davenport RN, Maddie Unavailable Rip Davenport RN, Maddie Unavailable Ken Whelan MD Primary Care Provider AILYN BONNER Referring Unavailable WHELAN, TRUONG Primary Care Unavailable MICHELLE REAGAN Attending Unavailable WHELAN, TRUONG Primary Care Unavailable MICHELLE REAGAN Attending Unavailable WHELAN, TRUONG Primary Care Unavailable MICHELLE REAGAN Attending Unavailable WHELAN, TRUONG Primary Care Unavailable DULCE VALLEJO Referring Unavailable WHELAN, TRUONG Primary Care Unavailable WEN GALICIA Attending UnavailZAMZAM Kumar Admitting Unavailable ZAMZAM WOODS Consulting Unavailable WHELAN, TRUONG Primary Care Unavailable ARACELIS PORTILLO Attending Unavailable WHELAN, TRUONG Primary Care Unavailable TREMAINE LANDON Attending Unavailable WHELAN, TRUONG Primary Care Unavailable Hussain MANAGER PLAN.CHRISTMAS BELL RINGER, Dia M Unavailable Dora RN, Najma Hudson Unavailable Dr. Ken Rojas MD Primary Care Provider Dale TONEY, Dr. Kulkarni Attending Provider Dale TONEY, Dr. Kulkarni Emergency Provider Ben TONEY, Dr. Rogers Attending Provider Jose Antonio HARRIS, Dr. Ibrahim Attending Provider Jose Antonio HARRIS, Dr. Ibrahim Emergency Provider Vida TONEY, Dr. Degroot Attending Provider Vida TONEY, Dr. Degroot Referring Provider Riaz TONEY, Dr. Forte Attending Provider [phone] Riaz TONEY, Dr. Forte Referring Provider Latonya Chen Attending Provider Latonya Chen Referring Provider Dora RAPP, Najma Hudson Unavailable Jade Whelan MD, Dr. Rogers Primary Care Provider Vida [...] Provider Sam STEVE, Latonya Valdez Attending Provider DIA NIXON Referring Unavailable ASHELY LUEVANO Attending Unavailable WHELAN, KEN Primary Care Unavailable WHELAN, KEN Primary Care Unavailable WHELAN, KEN Attending Unavailable WHELAN, KEN Primary Care Unavailable JORGE JORDAN Attending Unavailable IRIS BENOIT Referring Unavailable WHELAN, KEN Primary Care Unavailable GANTA, CAMI Referring Unavailable WHELAN, KEN Primary Care Unavailable WHELAN, KEN Primary Care Unavailable AILYN BONNER Referring Unavailable KAYA MOON JR Attending Unavailable WHELAN, KEN Primary Care Unavailable KAYA MOON JR Referring Unavailable CAMI MARS Attending Unavailable WHELAN, KEN Referring Unavailable WHELAN, KEN Primary Care Unavailable JERAD, CAMI Referring Unavailable WHELAN, KEN Primary Care Unavailable IRIS BENOIT Referring Unavailable JACKIE LAINEZ Attending Unavailable WHELAN, KEN Primary Care Unavailable WHELAN, KEN Primary Care Unavailable IRIS BENOIT Referring Unavailable JACKIE LAINEZ Attending Unavailable DIA NIXON Attending Unavailable WHELAN, KEN Primary Care Unavailable DIA NIXON Referring Unavailable RHODA SANTIAGO Attending Unavailable WHELAN, KEN Primary Care Unavailable DIA NIXON Referring Unavailable WHELAN, KEN Primary Care Unavailable WHELAN, KEN Attending Unavailable WHELAN, KEN Primary Care Unavailable WHELAN, KEN Referring Unavailable WHELAN, KEN Primary Care Unavailable IRIS BENOIT Referring Unavailable WHELAN, KEN Primary Care Unavailable WHELAN, KEN Primary Care Unavailable WHELAN, KEN Attending Unavailable WHELAN, KEN Referring Unavailable DIAN RODAS Attending Unavailable WHELAN, KEN Primary Care Unavailable WHELAN, KEN Primary Care Unavailable WHEALN, KEN Attending Unavailable AILYN BONNER Attending Unavailable AILYN BONNER Referring Unavailable WHELAN, KEN Primary Care Unavailable ANDREWTA, CAMI Attending Unavailable WHELAN, KEN Primary Care Unavailable IRIS BENOIT Referring Unavailable JACKIE LAINEZ Attending Unavailable WHELAN, KEN Primary Care Unavailable WHELAN, KEN Referring Unavailable WHELAN, KEN Primary Care Unavailable JYOTSNA LUTZ Attending Unavailable WHELAN, KEN Primary Care Unavailable WHELAN, KEN Referring Unavailable WHELAN, KEN Primary Care Unavailable AILYN BONNER Attending Unavailable NAIN AILYN José Miguel Referring Unavailable WHELAN, KEN Primary Care Unavailable GANTA, CAMI Referring Unavailable WHELAN, KEN Primary Care Unavailable WHELAN, KEN Referring Unavailable WHELAN, KEN Primary Care Unavailable RUBEN BUTLER Attending Unavailable WHELAN, KEN Primary Care Unavailable WHELAN, KEN Attending Unavailable WHELAN, KEN Primary Care Unavailable JORGE JORDAN Referring Unavailable WHELAN, KEN Primary Care Unavailable ASHELY LUEVANO Attending Unavailable WHELAN, KEN Primary Care Unavailable HUSSAIN, DIA M Attending Unavailable WHELAN, KEN Referring Unavailable WHELAN, KEN Primary Care Unavailable GANTA, CAMI Referring Unavailable WHELAN, KEN Primary Care Unavailable HUSSAIN, DIA M Attending Unavailable WHELAN, KEN Primary Care Unavailable Collette HARRIS, Dr. Yepez Emergency Provider Figueroa TONEY, Dr. Idalia Davey Admit Provider Figueroa TONEY, Dr. Idalia Davey Attending Provider Tyrone TONEY, Dr. Barraza Attending Provider Figueroa TONEY, Dr. Idalia Davey Other Provider Dmitri TONEY, Dr. Estrada Attending Provider Sarah TONEY, Dr. Gasca Other Provider Dr. Nelda Leon MD Other Provider Mariama Santos MD Other Provider Young MS, Hansel Other Provider Dilshad TONEY, Dr. Chavez Other Provider Bob TONEY, Gilberto Other Provider ATILIO ROUSSEAU MD Other Provider Monse Pacheco MD Other Provider Guillermo TONEY, Dr. Lanier Other Provider Elvin Flower MD Other Provider Gilbert TONEY, Valery Other Provider Sam TONEY, Tito Other Provider Unavailable Edgar TONEY, Venessa Other Provider Unavailable Benson HARRIS, Dr. Walden Other Provider Dedrick TONEY, Dr. Hernandez Other Provider Delicia TONEY, Dr. Luevano Other Provider Abraham TONEY, Dr. Zuniga Other Provider Jean-Claude TONEY, Dr. Jordan Other Provider Brandon TONEY, Dr. Crum Other Provider Arely TONEY, Dr. Cristobal Other Provider Felipe TONEY, Dr. Leona Farris Other Provider [phone] Jeferson TONEY, Dr. Morris Other Provider Joseluis TONEY, Dr. Murphy Other Provider Shady TONEY, Dr. Hunter Other Provider Gaudencio TONEY, Dr. Lizama Other Provider Unavailable Brennan TONEY, Nikki Other Provider Unavailable Taylor Arce Attending Provider Unavailable Vida TONEY, Dr. Degroot Referring Provider Dmitri TONEY, Dr. Estrada Other Provider Sam TONEY, Tito Other Provider Unavailable Edgar TONEY, Venessa Other Provider Unavailable Benson HARRIS, Dr. Walden Other Provider Dedrick TONEY, Dr. Hernandez Other Provider Delicia TONEY, Dr. Luevano Other Provider Abraham TONEY, Dr. Zuniga Other Provider Jean-Claude TONEY, Dr. Jordan Other Provider Brandon TONEY, Dr. Crum Other Provider Arely TONEY, Dr. Cristobal Other Provider Felipe TONEY, Dr. Leona Farris Other Provider [phone] Jeferson TONEY, Dr. Morris Other Provider Joseluis TONEY, Dr. Murphy Other Provider Shady TONEY, Dr. Hunter Other Provider Gaudencio TONEY, Dr. Lizama Other Provider Unavailable Brennan TONEY, Nikki Other Provider Unavailable Whelan, Ken Primary Care Unavailable Vida, Lutz Attending Unavailable Vida, Lutz Referring Unavailable Vida, Zane Attending Unavailable Whelan, Ken Primary Care Unavailable Whelan, Ken Primary Care Unavailable White, Idalia L Consulting Unavailable White, Idalia L Admitting Unavailable Dmitri, Sean Attending Unavailable Campos Smith Consulting Unavailable Amado Leoncia Consulting Unavailable Mariama Santos Consulting Unavailable Hansel Vidal Consulting Unavailable Scott Yung Consulting Unavailable Gilberto Rojas Consulting Unavailable ATILIO ROUSSEAU Consulting Unavailable Monse Pacheco Consulting Unavailable Yolande Li Consulting Unavailable Elvin Flower Consulting Unavailable Valery Hunt Consulting Unavailable Tito Vargas Consulting Unavailable Venessa Hernández Consulting Unavailable Benson Iram Consulting Unavailable David Tse Consulting Unavailable Chloé Nesbitt Consulting Unavailable Efrain Rosario Consulting Unavailable Bassam Bermeo Consulting Unavailable Radames Taylor Consulting Unavailable Susu Mcgee Consulting Unavailable Leona Wang Consulting UnavailArturo Martin Consulting Unavailable Jeffrey Huggins Consulting Unavailable Dale Caruso Consulting Unavailable Alda Ratliff Consulting Unavailable Nikki Amin Consulting Unavailable Dmitri, Sean Consulting Unavailable Shad Hunter Attending Unavailable Whelan, Ken Primary Care Unavailable Patrice Brady Attending Unavailable Whelan, Ken Primary Care Unavailable Valencia, Av Attending Unavailable Valencia, Av Referring Unavailable Whelan, Ken Primary Care Unavailable Whelan, Ken Primary Care Unavailable Latonya Chen Attending Unavail able Latonya Chen Referring Unavail able Whelan, Ken Consulting Unavailable Vida, Lutz Attending Unavailable Whelan, Ken Primary Care Unavailable Whelan, Ken Referring Unavailable White, Idalia L Consulting Unavailable White, Idalia L Attending Unavailable White, Idalia L Admitting Unavailable Whelan, Ken Primary Care Unavailable Vida, Zane Referring Unavailable Vida, Zane Attending Unavailable Whelan, Ken Primary Care Unavailable Whelan, Ken Primary Care Unavailable Latonya Chen Attending Unavail able Whelan, Ken Referring Unavailable Whelan, Ken Primary Care Unavailable Kaya Moon Attending Unavailable Kaya Moon Referring Unavailable Whelan, Ken Primary Care Unavailable Provider, Ed Physician Attending Unavailab le Whelan, Ken Referring Unavailable Whelan, Ken Primary Care Unavailable Whelan, Ken Attending Unavailable Vida, Zane Referring Unavailable Vida, Lutz Attending Unavailable Whelan, Ken Primary Care Unavailable Idalia Marti L Admitting Unavailable Idalia Marti Consulting Unavailable Sean Rizvi Attending Unavailable Whelan, Ken Primary Care Unavailable Campos Smith Consulting Unavailable Nelda Leon Consulting Unavailable Mariama Santos Consulting Unavailable Hansel Vidal Consulting Unavailable Scott Yung Consulting Unavailable Gilberto Rojas Consulting Unavailable ATILIO ROUSSEAU Consulting Unavailable Monse Pacheco Consulting Unavailable Yolande Li Consulting Unavailable Elvin Flower Consulting Unavailable Valery Hunt Consulting Unavailable Whelan, Ken Primary Care Unavailable Patrick, Basilio Chi Admitting Unavailable Patrick, Basilio Chi Attending Unavailable Whelan, Ken Primary Care Unavailable Whelan, Ken Attending Unavailable Jann Mello Attending Unavailable Jann Mello Referring Unavailable Whelan, Ken Primary Care Unavailable Vida, Zane Attending Unavailable Vida, Zane Referring Unavailable Whelan, Ken Primary Care Unavailable Whelan, Ken Primary Care Unavailable Taylor Arce Attending Unavailable Whelan, Ken Referring Unavailable Vida, Zane Attending Unavailable Whelan, Ken Primary Care Unavailable Vida, Lutz Attending Unavailable Whelan, Ken Primary Care Unavailable Whelan, Ken Referring Unavailable Allergies Allergy Classification Reported Allergen(s) Allergy Type Date of Onset Reaction(s) Facility (4 sources) ciprofloxacin Drug Allergy 11-28-19 17 itching [facility] Work Phone: (20 sources) penicillAMINE; Translations: [PENICILLAMINE] Drug Allergy 11-28-19 17 Unknown [facility] Work Phone: (20 sources) Shellfish; Translations: [SHELLFISH] drug allergy 03-17-20 05 Shortness of Breath [facility] Work Phone: (4 sources) SULFACLEANSE / drug allergy 11-28-19 17 upset stomach [facility] Work Phone: (9 sources) Budesonide / formoterol; Translations: [BUDESONIDE-FORMOT EMA] Drug Allergy 11-28-19 10 Intolerance [facility] (20 sources) Cat; Translations: [CATS] Propensity to adverse reactions 12-20-19 [facility] Work Phone: (20 sources) Ciprofloxacin; Translations: [CIPROFLOXACIN] Drug Allergy 03-17-20 05 Itching [facility] (20 sources) diphenhydrAMINE; Translations: [DIPHENHYDRAMINE HCL] Drug Allergy 10-05-19 18 Rash [facility] (20 sources) Dust; Translations: [DUST] Propensity to adverse reactions 12-20-19 [facility] Work Phone: (20 sources) Ketamine; Translations: [KETAMINE] Drug Allergy 04-07-20 19 Unknown [facility] (20 sources) Mold Extract; Translations: [MOLD] Drug Allergy 08-06-20 06 [facility] (18 sources) Penicillins; Translations: [PENICILLINS] Propensity to adverse reactions 03-17-20 05 [facility] (20 sources) Shellfish; Translations: [SHELLFISH CONTAINING PRODUCTS] Drug Allergy 11-28-19 17 Unknown [facility] (20 sources) Sulfonamides (Antibiotic); Translations: [SULFA (SULFONAMIDE ANTIBIOTICS)] Drug Intolerance 12-15-19 12 GI Upset [facility] (20 sources) tetanus toxoid vaccine, inactivated; Translations: [TETANUS TOXOID ADSORBED] Drug Allergy 10-14-19 08 Intolerance [facility] (20 sources) tiotropium; Translations: [TIOTROPIUM BROMIDE] Drug Allergy 04-13-20 08 Intolerance [facility] (20 sources) Tree's [Other] Propensity to adverse reactions 12-20-19 06 [facility] Work Phone: (18 sources) diphenhydrAMINE Drug Allergy 10-01-19 22 Rash [facility] (19 sources) Shellfish; Translations: [shellfish derived] Allergy to substance 10-01-19 Anaphylaxis [facility] (18 sources) tiotropium Drug Allergy 10-01-19 Other [facility] (20 sources) Penicillins Propensity to adverse reactions 03-17-20 Rash [facility] (20 sources) Budesonide / formoterol Drug Allergy 11-28-19 10 Intolerance [facility] (16 sources) Penicillins Allergy to substance 08-19-20 Hives [facility] (16 sources) Sulfonamides (Antibiotic) Allergy to substance 08-19-20 Upset Stomach [facility] (20 sources) Penicillins Propensity to adverse reactions 03-17-20 [facility] (1 source) Ciprofloxacin Drug Allergy 04-17-20 [facility] (1 source) diphenhydrAMINE Drug Allergy 04-17-20 [facility] (1 source) Ketamine Drug Allergy 04-17-20 [facility] (1 source) Penicillins Drug allergy (disorder) 04-17-20 [facility] (1 source) Sulfonamides (Antibiotic) Drug allergy (disorder) 04-17-20 [facility] (1 source) tiotropium Drug Allergy 04-17-20 [facility] Medications Current Medications Medication Drug [...] / HYDROcodone bitartrate 5 mg oral tablet (12 sources) Opioid Agonist Start: 11-24-2024 End: 11-29-2024 take 1 tablet by mouth every eight hours as needed for pain HYDROcodone-acet aminophen (NORCO) 5-325 mg per tablet Indications: Hip pain, left Take 1 tablet by mouth every 8 hours as needed for pain for up to 5 days. 15 tablet 11/24/2024 11/29/2024 Active Start: 08-08-2024 End: 04-17-2025 Hydrocodone-Acetaminophen 5- 325 mg tablet Discontinued 1 {tbl} PO EVERY 6 HOURS NEEDED as needed for Pain 10 3 0 August 08, 2024 April 17, 2025 2:34am Contusion of rib on left side Contusion of left front wall of thorax, initial encounter ascorbic acid 250 mg oral tablet (16 sources) Vitamin C Start: 08-19-2022 take 1 tablet by mouth twice daily Ascorbic Acid (Vitamin C) 250 mg tablet Active 250 mg PO TWICE A DAY August 19, 2022 1:00am aspirin 81 mg delayed release oral tablet (20 sources) Platelet Aggregation Inhibitor, Nonsteroidal Anti-inflammatory Drug Start: 11-27-2017 End: 10-05-2023 take 1 tablet by mouth once daily aspirin, enteric coated (ASPIRIN, ENTERIC COATED) 81 mg EC tablet Take 1 tablet by mouth once daily. 10/29/2023 Active Comment on above: Take 81 mg by mouth once daily. Take 1 tablet by [facility] once daily. azithromycin 250 mg oral tablet [...] daily for the next 4 days AZITHROMYCIN [id number] Irene Garcia CHRISTMAS BELL RINGER Start: 03-18-2017 End: 04-15-2017 AZITHROMYCIN 250 MG TABS 2 t ablets by mouth today and then 1 tablet daily for the next 4 days AZITHROMYCIN [id number] Irene Garcia CHRISTMAS BELL RINGER Start: 02-23-2017 End: 03-05-2017 AZITHROMYCIN 250 MG TABS 2 t ablets by mouth today and then 1 tablet daily for the next 4 days AZITHROMYCIN [id number] Jaswant Luevano DO Comment on above: Take 2 tablets [...] Start: 11-24-2016 take 0.5 tablet by m outh twice daily BACLOFEN 10 MG TABS Take 1/2 tab po twice daily BACLOFEN [id number] Jayde Barnes LPN Start: 11-17-2016 End: 04-20-2025 take 5 mg by mouth twice daily Baclofen 10 MG tablet Discontinued 5 mg PO TWICE A DAY November 17, 2016 12:00am April 20, 2025 12:25pm muscle relaxer Start: 11-17-2016 take 5 mg [...] ve EACH PO August 19, 2022 12:00am docusate sodium 50 mg / sennosides, [facility] 8.6 mg oral tablet (1 source) Start: 04-20-2025 Sennosides-Doc usate Sodium (Stimulant Laxative Plus) 8.6-50 mg Tablet Active 2 {tbl} PO TWICE DAILY NEEDED as needed for Constipation 0 0 April 20, 2025 12:00am DULCOLAX, BISACODYL, ORAL (20 sources) DULCOLAX, BISACO DYL, ORAL Take 1 tablet by mouth as needed. Active DULCOLAX, BISACO DYL, ORAL Take 1 tablet by mouth as needed. 0 Active Comment on above: Take 1 tablet by mervin as needed. ergocalciferol 1.25 mg oral capsule (20 sources) Provitamin D2 Compound Start: 04-11-2025 ergocalciferol 50,000 unit capsule (VITAMIN D2, DRISDOL) Indications: Vitamin D deficiency Take 1 capsule by mouth every 4 weeks. 3 capsule 3 04/11/2025 Active Start: 04-04-2024 ergocalciferol 50,000 unit capsule (VITAMIN D2, DRISDOL) Indications: Vitamin D deficiency Take 1 capsule by mouth every 4 weeks. 3 capsule 3 04/04/2024 Active Start: 09-10-2022 Ergocalciferol (Vitamin D2) 1,250 mcg (50,000 unit) capsule Active 23795 U PO EVERY MONTH September 10, 2022 4:26pm vitamin Start: 09-10-2022 take 29099 [IU] by [facility] every month Ergocalciferol (Vitamin D2) Active 15213 UNIT PO EVERY MONTH September 10, 2022 3:26pm Start: 01-23-2022 End: 04-02-2024 ergocalciferol 50,000 unit c apsule (VITAMIN D2, DRISDOL) Indications: Vitamin D deficiency Take 1 capsule by mouth every 4 weeks. 3 capsule 3 04/28/2023 Active Start: 01-10-2021 End: 09-10-2022 Ergocalciferol (Vitamin D2) 1,250 mcg (50,000 unit) capsule Discontinued 68107 U PO every 2 weeks January 10, 2021 10:43am September 10, 2022 4:27pm vitamin Start: 01-10-2021 End: 09-10-2022 take 11742 [IU] by mouth every other week Ergocalciferol (Vitamin D2) Discontinued 92710 UNIT PO every 2 weeks January 10, 2021 9:43am September 10, 2022 3:27pm Start: 11-17-2016 End: 01-10-2021 Ergocalciferol (Vitamin D2) 50,000 UNIT capsule Discontinued 67626 U PO MO November 17, 2016 12:00am January 10, 2021 10:49am Comment on above: Take [address] [facility] every 2 weeks. Take 1 capsule by [facility] every 4 weeks. estradiol 0.1 mg/ml vaginal cream (20 sources) Estrogen Start: 04-14-2025 Estradiol 0.01 % (0.1 mg/gram) cream Active 1 g VAGINAL 3 TIMES A WEEK 42.5 90 3 April 14, 2025 12:00am Start: 11-17-2016 End: 11-19-2016 Estradiol (Estrace Vaginal C ream) 42.5 GM Cream.Appl Discontinued 1 NMA VAGINAL DAILY November 17, 2016 12:00am November 19, 2016 12:25pm Start: 11-17-2016 End: 11-19-2016 Estradiol (Estrace Vaginal C ream) 42.5 GM Cream.Appl Discontinued 1 DOSE VAGINAL DAILY November 16, 2016 11:00pm November 19, 2016 11:25am fosfomycin 3000 mg powder for oral solution [...] oral tablet (20 sources) Loop Diuretic Start: 04-17-2025 take 10 mg by mouth once daily in the morning Furosemide 20 mg tablet Active 10 mg PO EVERY MORNING April 17, 2025 12:00am Diuretic Start: 03-31-2025 End: 04-17-2025 take 1 tablet by mouth once daily in the morning Furosemide 20 mg tablet Discontinued 20 mg PO EVERY MORNING 90 3 March 31, 2025 1:47pm April 17, 2025 2:41am Start: 07-04-2024 End: 03-31-2025 take 1 tablet by mouth once daily in the morning Furosemide 40 mg tablet Discontinued 40 mg PO EVERY MORNING 90 3 July 04, 2024 12:00am March 31, 2025 1:48pm furosemide (LASI X) 40 mg tablet Take 20 mg by mouth once daily. Active End: 10-11-2024 furosemide (LASIX) 40 mg/4 m L soln 10/11/2024 Discontinued (Duplicate Entry) furosemide (LASI X) 40 mg/4 mL soln Active ketotifen 0.25 mg/ml ophthalmic solution (20 sources) Histamine-1 Receptor Inhibitor Start: 01-10-2021 Ketotifen [...] 50 Plus Probiotic) 4 billion cell capsule (16 sources) Start: take 4 capsules by mouth [...] 1 tablet by mouth once daily Lisinopril 40 mg tablet Discontinued 40 mg PO DAILY January 10, 2021 12:00am March 31, 2025 1:48pm blood pressure Start: 11-17-2016 End: 01-10-2021 take 1 tablet by mouth once daily Lisinopril 10 MG tablet Discontinued 10 mg PO DAILY November 17, 2016 12:00am January 10, 2021 10:46am Comment on above: Take 1 tablet by mervin th once daily. loratadine 10 mg oral tablet (20 sources) Start: 12-27-2020 Loratadine (Claritin) 10 mg tablet Active 10 mg PO NEEDED December 27, 2020 12:00am allergies Start: 01-05-2020 take 1 tablet by mervin th once daily as needed loratadine (CLARITIN REDITABS) 10 mg dissolvable tablet Take 1 tablet by mouth once daily as needed (allergies). 01/05/2020 Active Comment on above: Take 1 tablet by mervin th once daily as needed (allergies). LORazepam 0.5 mg oral tablet (20 sources) Benzodiazepine Start: 04-20-2025 Lorazepam 0.5 mg Tablet Active 0.25 mg PO TWICE A DAY 0 0 April 20, 2025 12:00am Taper 0.25 mg twice daily for 3 days and then 0.25 mg daily for 3 days and then stop Start: 12-07-2023 End: 06-05-2025 take 1 tablet [...] tablet 3 09/09/2021 01/07/2022 Discontinued Start: 01-10-2021 End: 04-20-2025 take 2 tablets by mouth at bedtime Lorazepam 1 mg tablet Discontinued 2 mg PO AT BEDTIME January 10, 2021 10:47am April 20, 2025 12:21pm anxiety Start: 01-10-2021 take 2 mg by [...] th daily at bedtime for 90 days. Multivitamin 1 EACH tablet (9 sources) Start: 11-17-2016 Multivitamin 1 EACH tablet Active 1 {tbl} PO DAILY November 17, 2016 12:00am vitamin Start: 11-17-2016 Multivitamin 1 EACH tablet Active 1 {tbl} PO DAILY November 17, 2016 12:00am MULTIVITAMIN TAB (20 sources) Start: 11-13-2005 MULTIVITAMIN TAB Take one(1) tablet daily. 0 11/13/2005 Active Comment on above: Take one(1) tablet d aily. nitrofurantoin, macrocrystals 25 mg / nitrofurantoin, monohydrate 75 mg oral capsule (12 sources) Nitrofuran Antibacterial Start: 04-14-2025 End: 04-20-2025 take 1 capsule by mouth twice daily at mealtime Nitrofurantoin Monohyd/M-Cryst (Macrobid) 100 mg capsule Active 100 mg PO TWICE A DAY 6 3 0 April 20, 2025 12:25pm must administer with a meal/food Start: 01-03-2025 End: 01-11-2025 nitrofurantoin monohydrate a nd macrocrystal (MACROBID) 100 mg capsule 01/03/2025 01/11/2025 Discontinued (Course of therapy completed) Start: 10-03-2021 End: 01-23-2022 take 1 capsule by mouth twice daily nitrofurantoin monohydrate and macrocrystal (MACROBID) 100 mg capsule TAKE 1 CAPSULE BY MOUTH TWICE DAILY FOR 7 DAYS 0 10/03/2021 01/23/2022 Discontinued Comment on above: TAKE 1 CAPSULE BY [facility] TWICE DAILY FOR 7 DAYS pantoprazole 20 mg delayed release oral tablet (20 sources) Proton Pump Inhibitor Start: 01-11-20 End: 10-30-19 take 2 tablets by mouth once daily pantoprazole DR (PROTONIX) 20 mg tablet Indications: Gastroesophageal reflux disease with esophagitis Take 2 tablets by mouth once daily. 180 tablet 3 11/02/2024 Active Start: 01-10-2021 take 40 mg by mouth once daily Pantoprazole Active 40 MG PO DAILY January 09, 2021 11:00pm Start: 11-24-2016 take 1 tablet by [facility] once daily PROTONIX 40 MG PACK One tablet by mouth daily PANTOPRAZOLE SODIUM [id number] Jayde Barnes LPN Start: 11-17-2016 End: 01-10-2021 Pantoprazole 40 MG tablet Discontinued 20 mg PO TWICE A DAY November 17, 2016 12:00am January 10, 2021 10:47am Start: 11-17-2016 End: 01-10-2021 take 20 mg by mouth twice daily Pantoprazole Discontin ued 20 MG PO TWICE A DAY November 16, 2016 11:00pm January 10, 2021 9:47am Comment on above: Take 2 tablets by [facility] once daily. PARoxetine hydrochloride 40 mg [...] One tablet by mouth daily PAROXETINE HCL [id number] Jayde Barnes LPN Start: 11-17-2016 take 4 tablets by mo uth once daily Paroxetine Hcl 10 MG tablet Active 40 mg PO DAILY November 17, 2016 12:00am mental health Start: 11-17-2016 take 40 mg by mouth once daily Paroxetine Hcl Active 40 MG PO DAILY November 16, 2016 11:00pm Comment on above: Take 1 tablet by mervin th once daily. polyethylene glycol 3350 87410 mg powder for oral solution (20 sources) Osmotic Laxative Start: 05-27-2017 Polyethylene Glycol 3350 17 GM packet Active 17 g PO NEEDED May 27, 2017 12:00am constipation Start: 09-23-2016 polyethylene g lycol 3350 (MIRALAX, GLYCOLAX) 17 gram/dose powder Drink a mix of 1 scoop in 8oz of water/beverage once daily as needed for constipation. 1 Bottle 09/23/2016 Active Comment on above: Drink a mix of 1 sco op in 8oz of water/beverage once daily as needed for constipation. thiamine 100 mg oral tablet (1 source) Start: 025 take 1 tablet by mouth at breakfast Thiamine Hcl (Vitamin B1) 100 mg Tablet Active 100 mg PO WITH BREAKFAST 0 April 20, 2025 12:00am tiZANidine 2 mg oral tablet (1 source) Central alpha-2 Adrenergic Agonist Start: take 1 tablet by mouth every eight hours as needed for muscle spasms Tizanidine 2 mg Tablet Active 2 mg PO EVERY 8 HOURS NEEDED as needed for muscle spasm 0 April 20, 2025 12:00am traZODone hydrochloride 50 mg oral tablet (1 source) Serotonin Reuptake Inhibitor Start: take 1 tablet by mouth at bedtime Trazodone 50 mg Tablet Active 50 mg PO AT BEDTIME 0 April 20, 2025 12:00am 1 ml triamcinolone acetonide 40 mg/ml injection (20 sources) Corticosteroid Start: End: triamcinolone acetonide 40 mg injection (KeNALog 40) Start: 04-15-2021 End: 11-09-2023 triamcinolone (KENALOG) 0.02 5 % cream Apply to affected area once daily. 15 g 04/15/2021 11/09/2023 Discontinued (Course of therapy completed) Comment on above: Apply to affected ar ea once daily. Vibegron (18 sources) Start: 08-07-2021 take 1 tablet by [...] every 4 hours as needed ALBUTEROL SULFATE [id number] Lory Valdez Wili Start: 11-24-2016 End: 07-24-2017 take 1-2 puff(s) by inhalation every four hours as needed VENTOLIN HFA 108 (90 Base) MCG/ACT AERS INH 1-2 puffs q4h as needed ALBUTEROL SULFATE [id number] Jayde Barnes LPN Start: 11-17-2016 End: 09-23-2017 [...] 1 spray each nostril daily AZELASTINE HCL [id number] Irene Garcia CNP azelastine hydrochloride 0.137 mg/actuat / fluticasone propionate 0.05 mg/actuat metered dose nasal spray (8 sources) Corticosteroid, Histamine-1 Receptor Antagonist Start: 2016 End: 2016 take 1 spray(s) nasal route twice daily DYMISTA 137-50 MCG/ACT SUSP 1 spray each nostril twice daily AZELASTINE-FLUTICA SONE [id number] Irene Garcia [employer]STM[employer] benoxinate hydrochloride 4 mg/ml / fluorescein sodium 2.5 mg/ml ophthalmic solution (1 source) Diagnostic Dye Start: 2021 End: 2021 fluorescein-benoxi amanda 0.25-0.4 % 1 Drop (FLURESS) bisacodyl 5 mg delayed release oral tablet (18 sources) Stimulant Laxative Start: 2020 End: 2022 [...] above: Take 1 capsule by mo ut twice daily for 7 days. cholecalciferol 25614 unt oral capsule (8 sources) Vitamin D Start: 11-25-19 take 1 capsule by mouth every week VITAMIN D3 69889 UNIT CAPS 1 capsule PO weekly CHOLECALCIFEROL [id number] Jayde Jennifer Barnes CLEANER Start: 11-24-2016 take 1 capsule by mo uth every month VITAMIN D3 32091 UNIT CAPS 1 capsule PO monthly CHOLECALCIFEROL [id number] Jayde Jennifer Barnes CLEANER D-Mannose powder (9 sources) Start: 08-19-2022 End: 02-11-2024 D-Mannose powder Discontinued NMA PO August 19, 2022 1:00am February 11, 2024 2:13pm doxycycline hyclate 100 mg oral capsule (20 sources) Tetracycline -class Drug Start: 04-19-2025 End: 04-20-2025 take 1 capsule by mouth twice daily Doxycycline Hyclate 100 mg capsule Discontinued 100 mg PO TWICE A DAY April 19, 2025 12:00am April 20, 2025 12:21pm Antibiotic Start: 04-07-2025 End: 04-17-2025 take 1 capsule [...] 07, 2019 12:00am July 06, 2019 11:12am estrogens, conjugated ([facility]) 0.625 mg/ml vaginal cream (20 sources) Estrogen Start: 09-10-2022 End: 04-17-2025 Conjugated Estrogens 0.625 mg/gram cream Discontinued 0.625 mg VAGINAL .3xweek February 11, 2024 2:26pm April 17, 2025 2:30am Three times a week Start: 08-19-2022 End: 09-10-2022 Conjugated Estrogens 0.625 m g/gram cream Discontinued 0.625 mg VAGINAL ONCE August 19, 2022 1:00am September 10, 2022 4:27pm fluconazole 150 mg oral tablet (20 sources) [...] as needed for Sob &/Or Wheezing 60 3 April 02, 2021 10:37am February 19, 2022 2:56pm Start: 04-15-2017 End: 07-24-2017 FLOVENT HFA 110 MCG/ACT AERO 2 puffs twice daily FLUTICASONE PROPIONATE HFA [id number] Jayde Rodriguez Molly TODD Start: 04-15-2017 End: 07-24-2017 FLOVENT HFA 220 MCG/ACT AERO 2 puff twice daily FLUTICASONE PROPIONATE HFA [id number] Jaswant Luevano DO Start: 11-27-2016 End: 03-05-2017 take 2 spray(s) nasal route once daily FLUTICASONE PROPIONATE 50 MCG/ACT SUSP 2 sprays each nostril daily FLUTICASONE PROPIONATE [id number] Jaswant Luevano DO Start: 11-17-2016 End: 01-10-2021 take 50 ug by inhalation once daily as needed for wheezing Fluticasone Propionate 50 MCG blister with device Discontinued 50 ug IH DAILY as needed for Sob &/Or Wheezing November 17, 2016 12:00am January 10, 2021 10:48am 30 actuat fluticasone furoate 0.1 mg/actuat / vilanterol 0.025 mg/actuat dry powder inhaler (20 sources) Corticosteroid, beta2-Adrenergic Agonist Start: 02-11-2022 End: 04-07-2025 Fluticasone Furoate-Vilanterol (Breo Ellipta) 100-25 mcg/dose blister with device Discontinued 1 NMA INHALATION DAILY 60 6 November 16, 2023 2:05pm August 22, 2024 10:15am Start: 02-11-2022 End: 01-09-2023 Fluticasone Furoate-Vilanter ol [...] 28, 2021 11:00pm April 02, 2021 7:02am GEMTESA 75 mg tablet (20 sources) Start: [...] guaiFENesin 1200 mg extended release oral tablet (20 sources) Start: 11-20-2020 End: 01-10-2021 take 1 tablet by mouth every twelve hours Guaifenesin 1,200 mg tablet extended release 12hr Discontinued 1200 mg PO Q12H 60 November 20, 2020 12:00am January 10, 2021 10:48am Start: 07-27-2017 GUAIFENESIN 40 0 MG TABS 1 tab twice daily GUAIFENESIN [id number] Irene Garcia [employer] levETIRAcetam 500 mg oral tablet (4 sources) Start: 10-05-2023 End: 10-29-2023 take 1 tablet by mouth twice daily levETIRAcetam (KEPPRA) 500 mg tablet Take 1 tablet by mouth two times a day for 5 days. 10 tablet 0 10/05/2023 10/29/2023 Discontinued Comment on above: Take 1 tablet by mervin th two times a day for 5 days. meloxicam 15 mg oral tablet (20 sources) Nonsteroidal Anti-inflammatory Drug Start: 11-27-2017 End: 11-02-2025 take 1 tablet by mouth once daily Meloxicam 15 mg tablet Discontinued 15 mg PO DAILY September 21, 2024 1:00am April 20, 2025 12:22pm Start: 11-17-2016 End: 11-19-2016 take 1 tablet by mouth once daily Meloxicam (Mobic) 15 MG tablet Discontinued 15 mg PO DAILY November 17, 2016 12:00am November 19, 2016 12:26pm Comment on above: Take 1 tablet by mervin th once daily. 24 hr mirabegron 50 mg extended release [...] One tablet by mouth daily MULTIPLE VITAMIN [id number] Jayde Barnes LPN Start: 11-17-2016 take 1 tablet by mervin th once daily Multivitamin Active 1 TABLET PO DAILY November 17, 2016 1:53pm Start: 11-17-2016 take 1 tablet by mervin th once daily Multivitamin Active 1 TABLET PO DAILY November 17, 2016 12:00am Start: 11-17-2016 take 1 tablet by mervin th once daily Multivitamin Active 1 TABLET PO DAILY November 16, 2016 11:00pm nystatin 563217 unt/ml oral suspension (20 sources) Polyene Antifungal [...] 10 days Start: 04-15-2017 End: 07-24-2017 NYSTATIN 167556 UNIT/ML SUSP 5 cc swish and swallow three times a day NYSTATIN [id number] Jayde Barnes LPN oxyCODONE hydrochloride 5 mg [...] tab by mouth for 3 days. PREDNISONE [id number] Irene Garcia CNP proparacaine hydrochloride 5 mg/ml ophthalmic solution (1 source) Local Anesthetic Start: 07-15-2022 End: 07-16-2022 proparacaine 0.5 % 1 Drop (ALCAINE) levothyroxine sodium 0.088 mg oral tablet (20 sources) l-Thyroxine Start: 11-24-2016 SYNTHROID 88 M CG TABS Half tab PO on saturdays, 1 full tab PO thursday, thursday, thursday, , thursday and sundays LEVOTHYROXINE SODIUM [id number] Jayde Barnes LPN Start: 11-17-2016 End: 04-27-2025 Levothyroxine 88 mcg tablet Discontinued 88 ug [...] ON SUNDAYS. TAKE ON AN EMPTY STOMACH tropicamide 10 mg/ml ophthalmic solution (1 source) Anticholinergic Start: 07-15-20 End: 07-16-20 tropicamide 1 % 1 Drop (MYDRIACYL) vitamin b 12 1 mg oral capsule (20 sources) Vitamin B12 Start: 11-25-19 take 1 tablet by mouth once daily B-12 1000 MCG CAPS One tablet by mouth daily CYANOCOBALAMIN [id number] Jayde Staffordmercy TODD Start: 11-17-2016 End: 04-20-2025 take 1 tablet by mouth once daily Cyanocobalamin (Vitamin B-12) 1,000 MCG tablet Active 1000 ug PO DAILY November 17, 2016 12:00am vitamin Comment on above: Take 1,000 mcg by [facility] once daily. Problems Active Problems Problem Classification Problem Date Documented Da te Episodic/Chronic Acute and unspecified renal failure (1 source) Acute kidney failure, unspecified; Translations: [Acute kidney failure, unspecified] Onset: 04-27-2025 Episodic Administrative/social admission (2 sources) Other reduced mobility; Translations: [Other specified conditions influencing health status] 01-08-2024 Episodic Anxiety disorders (20 sources) Anxiety; Translations: [Anxiety disorder, unspecified] Onset: 01-08-2017 01-08-2017 Chronic Asthma (20 sources) Asthma; Translations: [Exacerbation of asthma] Onset: 01-29-2006 Resolved: 01-20-2010 11-27-2016 Chronic Cardiac dysrhythmias (20 sources) Sick sinus syndrome; Translations: [Sick sinus syndrome] Onset: 04-18-2025 Chronic Chronic kidney disease (20 sources) Chronic [...] uncomplicated] Onset: 07-29-2006 Resolved: 11-27-2009 03-05-2017 Chronic Coma; stupor; and brain damage (1 source) Unspecified coma; Translations: [Unspecified coma] Onset: 04-27-2025 Episodic Complications of surgical procedures or medical care (1 source) Non dose-related adverse reaction to medication; Translations: [Unspecified adverse effect of drug or medicament, initial encounter] 03-23-2025 Episodic Conduction disorders (20 sources) Cardiac pacemaker in situ; Translations: [Presence of cardiac pacemaker] Onset: 05-08-2021 07-25-2021 Chronic Coronary atherosclerosis and other heart disease (18 sources) History of non-ST segment elevation myocardial infarction; Translations: [Old myocardial infarction] 01-14-2018 Chronic E Codes: Fall (20 sources) Fall; Translations: [Unspecified fall, initial encounter] Onset: 10-03-2023 Resolved: 10-29-2023 05-18-2023 Episodic Esophageal disorders (20 sources) Gastro-esophageal reflux disease [...] consciousness, subsequent encounter] Onset: 11-09-2023 11-09-2023 Episodic Malaise and fatigue (20 sources) Fatigue; Translations: [Other fatigue] Onset: 10-14-2023 01-10-2021 Episodic Mood disorders (20 sources) Depressive disorder; Translations: [Depressive disorder] Onset: 03-17-2005 Resolved: 04-24-2021 06-25-2017 Chronic Mood disorders (1 source) Mood disorders; Translations: [Depression, unspecified] Onset: 04-27-2025 Mycoses (20 sources) Candidiasis of mouth; Translations: [Candidal stomatitis] Onset: 04-15-2017 04-15-2017 Episodic Nonspecific chest pain (20 sources) Chest pain; Translations: [Chest pain, unspecified] Onset: 05-05-2017 05-05-2017 Episodic Nutritional deficiencies (20 sources) Vitamin D deficiency; Translations: [Vitamin D deficiency, unspecified] Onset: 01-08-2017 01-08-2017 Chronic Nutritional deficiencies (3 sources) Iron deficiency; Translations: [Iron deficiency] Onset: 12-14-2024 12-14-2024 Episodic Open wounds of extremities (9 sources) Laceration without foreign body of left upper arm, initial encounter; Translations: [Skin tear of left upper extremity] 08-16-2024 Episodic Open wounds of head; neck; and trunk (10 sources) Scalp laceration; Translations: [Laceration without foreign body of scalp, initial encounter] Onset: 04-27-2025 04-17-2025 Episodic Osteoarthritis (20 sources) Osteoarthritis; Translations: [Unspecified osteoarthritis, unspecified site] Onset: 12-18-2011 12-18-2011 Chronic Other aftercare (9 sources) Long-term current use of diuretic; Translations: [...] of left hip] Onset: 01-25-2025 Episodic Other connective tissue disease (11 sources) Recurrent falls ; Translations: [Repeated falls] 04-17-2025 Episodic Other connective tissue disease (1 source) Other muscle spasm; Translations: [Other muscle spasm] Onset: 04-27-2025 Episodic Other connective tissue disease (2 sources) Repeated falls; Translations: [Repeated falls] Onset: 04-18-2025 Episodic Other diseases of veins and lymphatics (1 source) Peripheral venous insufficiency; Translations: [Venous insufficiency (chronic) (peripheral)] Episodic Other gastrointestinal disorders (20 sources) Irritable bowel syndrome; Translations: [Mixed irritable bowel syndrome] Onset: 09-23-2016 09-23-2016 Chronic Other gastrointestinal disorders (14 sources) Constipation; Translations: [Constipation, unspecified] 01-09-2023 Episodic [...] of the digestive system] 05-16-2024 Episodic Other gastrointestinal disorders (1 source) Constipation, unspecified; Translations: [Constipation, unspecified] Onset: 04-27-2025 Episodic Other injuries and conditions due to external causes (14 sources) Injury of head; Translations: [Unspecified injury [...] conditions due to external causes (20 sources) Closed injury of head; Translations: [Unspecified injury of head, initial encounter] 08-16-2024 Episodic Other injuries and conditions due to external causes (7 sources) Other specified injuries of thorax, initial encounter; Translations: [Contusion of rib on left side] 08-16-2024 Episodic Other injuries and conditions due to external causes (1 source) Unspecified injury of head, initial encounter; Translations: [Unspecified injury of head, initial encounter] Onset: 2025 Episodic Other liver diseases (1 source) Alkaline phosphatase raised; Translations: [Abnormal levels of other serum enzymes] Episodic Other lower respiratory disease (18 sources) Cough; Translations: [Cough] 01-14-2018 Episodic Other [...] (4 sources) Other forms of dyspnea; Translations: [MARTINES [...] of skin] Episodic Other non-traumatic joint disorders (11 sources) Pain in right knee; Translations: [Mechanical pain of right knee] 05-27-2023 Episodic Other non-traumatic joint disorders (1 source) Pain in left hip; Translations: [Hip pain, left] Onset: 03-02-2025 Episodic Other nutritional; endocrine; and metabolic disorders (20 sources) Obese class I; Translations: [Obesity, unspecified] Onset: 07-07-2019 07-07-2019 Chronic Other nutritional; endocrine; and metabolic disorders (18 sources) Obesity; Translations: [Obesity, unspecified] 02-12-2022 Chronic [...] serious comorbidity present] Onset: 04-18-2024 Chronic Other nutritional; endocrine; and metabolic disorders (1 source) Adult failure to thrive; Translations: [Adult failure to thrive] Onset: 04-26-2025 Episodic Other screening for suspected conditions (not mental [...] allergic rhinitis] 03-23-2025 Chronic Other upper respiratory disease (1 source) Allergic rhinitis, unspecified; Translations: [Allergic rhinitis, unspecified] Onset: 04-27-2025 Chronic Other upper respiratory infections (19 sources) Posterior rhinorrhea; Translations: [Postnasal drip] 01-14-2018 Episodic Otitis media and related conditions (1 source) Dysfunction of left eustachian tube; Translations: [Other specified disorders of Eustachian tube, left ear] Episodic Pleurisy; pneumothorax; pulmonary collapse (2 sources) Pleurisy; Translations: [Pleurisy] Episodic Poisoning by nonmedicinal substances (1 source) Toxic effect from eating shellfish; Translations: [Other shellfish poisoning, accidental (unintentional), initial encounter] 03-23-2025 Episodic Residual codes; unclassified (2 sources) Sleep [...] [Hypersomnia] Onset: 04-18-2024 Chronic Residual codes; unclassified (11 sources) Edema of right lower limb; Translations: [Localized edema] 05-27-2023 Episodic Residual codes; unclassified (1 source) Forgetful; Translations: [Other general symptoms and signs] 11-09-2023 Episodic Residual codes; unclassified (2 sources) Insomnia; Translations: [Insomnia, unspecified] 04-18-2024 Episodic Respiratory failure; insufficiency; arrest (20 sources) Acute respiratory failure; Translations: [Acute respiratory [...] unspecified] Onset: 10-02-2023 Resolved: 11-25-2024 10-02-2023 Chronic Allergic reactions (2 sources) Allergy to penicillin; [...] unspecified] Onset: 06-18-2010 Resolved: 01-08-2017 01-08-2017 Chronic Genitourinary symptoms and ill-defined conditions (3 sources) Dysuria; Translations: [Dysuria] Onset: 04-18-2024 Episodic Headache; including migraine (10 sources) Posttraumatic headache; Translations: [Post-traumatic headache, unspecified, [...] bilateral] Onset: 11-06-2020 Resolved: 11-25-2024 10-08-2021 Episodic Mood disorders (2 sources) Mood disorder; 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, unspecified] Onset: 11-09-2023 11-09-2023 Episodic Other aftercare (20 sources) Drug therapy finding; Translations: [USP (current) use of anticoagulants] Onset: 11-25-2016 Resolved: [...] Snoring; Translations: [Snoring] Onset: 04-18-2024 Episodic Other lower respiratory disease (1 source) [...] Onset: 01-30-2012 Resolved: 09-23-2016 09-23-2016 Episodic Unclassified (18 sources) Bilateral SubmassivePE 04-02-2022 Unclassified (20 sources) ASA CLASS II Onset: 03-17-2005 Resolved: 09-23-2016 09-23-2016 Urinary tract infections (20 sources) Urinary tract infectious disease; Translations: [Urinary tract infection, site not specified] Onset: 06-19-2022 Episodic Results Test Name Value Interpretation Reference Range Facility HH, Hemoglobin AND Hematocri ton 05-06-2025 Hematocrit (Bld) [Volume fraction] 28.6 % Low 37-47 [facility] Comment on above: Performed By: #### L 100.0600 ####[facility] [address] [place], [address] Hemoglobin (Bld) [Mass/Vol] 8.9 g/dL Low 12.0-15.0 [facility] Comment on above: Performed By: #### L 100.0600 ####[facility] [address] [place], [address] Basic Metabolic Profile (BMP )on 05-05-2025 BUN/CRE 14.7 RATIO Normal 10-20 [facility] Comment on above: Performed By: #### L 100.0100, L500.2500 ####[facility] [address] [place], [address] Calcium [Mass/Vol] 9.3 mg/dL Normal 7.6-11.0 [facility] Comment on above: Performed By: #### L 100.0100, L500.2500 ####[facility] [address] [place], [address] Chloride [Moles/Vol] 109 mmol/L High 98-108 [facility] Comment on above: Performed By: #### L 100.0100, L500.2500 ####[facility] [address] [place], [address] CO2 [Moles/Vol] 23.4 mmol/L Normal 21.0-32.0 [facility] Comment on above: Performed By: #### L 100.0100, L500.2500 ####[facility] [address] [place], [address] Creatinine [Mass/Vol] 0.97 mg/dL Normal 0.70-1.20 [facility] Comment on above: Performed By: #### L 100.0100, L500.2500 ####[facility] [address] [place], [address] ECRCL 36.33 ml/min Low 50-250 [facility] Comment on above: Performed By: #### L 100.0100, L500.2500 ####[facility] [address] [place], [address] GAP 8 Normal 5-15 [facility] Comment on above: Performed By: #### L 100.0100, L500.2500 ####[facility] [address] [place], [address] GFR/1.73 sq M.predicted among non-blacks MDRD (S/P/Bld) [Vol rate/Area] 56 mL/min/{1.73_m2} Low >60 [facility] Comment on above: Result Comment: mL/m in/1.73m2 CKD-EPI Creatinine Equation (2020) Performed By: #### L 100.0100, L500.2500 ####[facility] [address] [place], [address] Glucose [Mass/Vol] 96 mg/dL Normal 70-99 [facility] Comment on above: Performed By: #### L 100.0100, L500.2500 ####[facility] [address] [place], [address] Potassium [Moles/Vol] 4.7 mmol/L Normal 3.3-5.1 [facility] Comment on above: Performed By: #### L 100.0100, L500.2500 ####[facility] [address] [place], [address] Sodium [Moles/Vol] 140 mmol/L Normal 133-145 [facility] Comment on above: Performed By: #### L 100.0100, L500.2500 ####[facility] [address] [place], [address] Urea nitrogen [Mass/Vol] 14 mg/dL Normal 4-19 [facility] Comment on above: Performed By: #### L 100.0100, L500.2500 ####[facility] [address] [place], [address] CBC W/Diff, Automatedon 04-08 Absolute Lymph 2.21 X10 3/uL Normal 0.83-4.51 [facility] Comment on above: Performed By: #### L 100.0100, L500.2500 ####[facility] [address] [place], [address] Absolute Neut 4.7 X10 3/uL Normal 2.0-7.7 [facility] Comment on above: Performed By: #### L 100.0100, L500.2500 ####[facility] [address] [place], [address] Basophils/100 WBC (Bld) 0.5 % Normal 0-1 [facility] Comment on above: Performed By: #### L 100.0100, L500.2500 ####[facility] [address] [place], [address] Eosinophils/100 WBC (Bld) 3.7 % Normal 0-5 [facility] Comment on above: Performed By: #### L 100.0100, L500.2500 ####[facility] [address] [place], [address] Erythrocyte distribution width (RBC) [Ratio] 14.2 % Normal 11.6-14.6 [facility] Comment on above: Performed By: #### L 100.0100, L500.2500 ####[facility] [address] [place], [address] Hematocrit (Bld) [Volume fraction] 29.1 % Low 37-47 [facility] Comment on above: Performed By: #### L 100.0100, L500.2500 ####[facility] [address] [place], [address] Hemoglobin (Bld) [Mass/Vol] 9.1 g/dL Low 12.0-15.0 [facility] Comment on above: Performed By: #### L 100.0100, L500.2500 ####[facility] [address] [place], [address] IG% 1.300 High 0.0-0.9 [facility] Comment on above: Result Comment: IG% - Immature Granulocytes (promyelocytes, myelocytes andmetamyelocytes) > 1% indicates that a LEFT SHIFT is Present. Performed By: #### L 100.0100, L500.2500 ####[facility] [address] [place], [address] Lymphocytes/100 WBC (Bld) 26.3 % Normal 19-41 [facility] Comment on above: Performed By: #### L 100.0100, L500.2500 ####[facility] [address] [place], [address] MCH (RBC) [Entitic mass] 31.1 pg Normal 27.0-32.0 [facility] Comment on above: Performed By: #### L 100.0100, L500.2500 ####[facility] [address] [place], [address] MCHC (RBC) [Mass/Vol] 31.3 g/dL Low 32-36 [facility] Comment on above: Performed By: #### L 100.0100, L500.2500 ####[facility] [address] [place], [address] MCV (RBC) [Entitic vol] 99.3 fL High 81-99 [facility] Comment on above: Performed By: #### L 100.0100, L500.2500 ####[facility] [address] [place], [address] Monocytes/100 WBC (Bld) 12.0 % High 0-10 [facility] Comment on above: Performed By: #### L 100.0100, L500.2500 ####[facility] [address] [place], [address] Neutrophils/100 WBC (Bld) 56.2 % Normal 47-70 [facility] Comment on above: Performed By: #### L 100.0100, L500.2500 ####[facility] [address] [place], [address] Nucleated RBC (Bld) [#/Vol] 0 10*3/uL Normal 0-5 [facility] Comment on above: Performed By: #### L 100.0100, L500.2500 ####[facility] [address] [place], [address] Platelet mean volume (Bld) [Entitic vol] 9.6 fL Normal 6.2-12.0 [facility] Comment on above: Performed By: #### L 100.0100, L500.2500 ####[facility] [address] [place], [address] Platelets (Bld) [#/Vol] 291 10*3/uL Normal 150-450 [facility] Comment on above: Performed By: #### L 100.0100, L500.2500 ####[facility] [address] [place], [address] RBC (Bld) [#/Vol] 2.93 10*6/uL Low 4.2-5.4 [facility] Comment on above: Performed By: #### L 100.0100, L500.2500 ####[facility] [address] [place], [address] RDW SD 51.0 fl High 35.1-43.9 [facility] Comment on above: Performed By: #### L 100.0100, L500.2500 ####[facility] [address] [place], [address] WBC (Bld) [#/Vol] 8.4 10*3/uL Normal 4.4-11.0 [facility] Comment on above: Performed By: #### L 100.0100, L500.2500 ####[facility] [address] [place], [address] COVID 19 AG RAPID (RN LAVELLE T)on 05-01-2025 SARS-CoV-2 (COVID-19) RNA AQUILINO+probe Ql (Unsp spec) Normal [facility] Comment on above: Performed By: #### M 100.505 ####[facility] [address] [place], [address] HH, Hemoglobin AND Hematocri ton 05-01-2025 Hematocrit (Bld) [Volume fraction] 32.8 % Low 37-47 [facility] Comment on above: Performed By: #### L 100.0600 ####[facility] [address] [place], [address] Hemoglobin (Bld) [Mass/Vol] 10.2 g/dL Low 12.0-15.0 [facility] Comment on above: Performed By: #### L 100.0600 ####[facility] [address] [place], [address] Urine Cultureon 05-01-2025 URC Normal [facility] Comment on above: Performed By: #### M 100.2200 ####[facility] [address] [place], [address] HH, Hemoglobin AND Hematocri ton 04-30-2025 Hematocrit (Bld) [Volume fraction] 30.9 % Low 37-47 [facility] Comment on above: Performed By: #### L 100.0600 ####[facility] [address] [place], [address] Hemoglobin (Bld) [Mass/Vol] 9.8 g/dL Low 12.0-15.0 [facility] Comment on above: Performed By: #### L 100.0600 ####[facility] [address] [place], [address] COVID 19 AG RAPID (DIONTE Barreto)on 04-29-2025 SARS-CoV-2 (COVID-19) RNA AQUILINO+probe Ql (Unsp spec) Normal [facility] Comment on above: Performed By: #### M 100.505 ####[facility] [address] [place], [address] Urinalysis, Completeon 04-29 EPI,SQUAMOUS 0-5 SEEN Normal 5-10 [facility] Comment on above: Order Comment: MAINOR TER SPECIMEN Performed By: #### L 400.0001 ####[facility] [address] [place], [address] BACTERIA 2+ /hpf Normal None Seen [facility] Comment on above: Order Comment: MAINOR TER SPECIMEN Performed By: #### L 400.0001 ####[facility] [address] [place], [address] RBC 0-5 SEEN Normal 0-5 [facility] Comment on above: Order Comment: MAINOR TER SPECIMEN Performed By: #### L 400.0001 ####[facility] [address] [place], [address] WBC 0-5 SEEN Normal 0-5 [facility] Comment on above: Order Comment: MAINOR TER SPECIMEN Performed By: #### L 400.0001 ####[facility] [address] [place], [address] Mucus Ql (Urine sed) 0 SEEN Normal [facility] Comment on above: Order Comment: MAINOR TER SPECIMEN Performed By: #### L 400.0001 ####[facility] [address] [place], [address] Basic Metabolic Profile (BMP )on 04-28-2025 BUN/CRE 20.0 RATIO Normal 10-20 [facility] Comment on above: Performed By: #### L 100.0100, L500.2500 ####[facility] [address] [place], [address] Calcium [Mass/Vol] 9.4 mg/dL Normal 7.6-11.0 [facility] Comment on above: Performed By: #### L 100.0100, L500.2500 ####[facility] [address] [place], [address] Chloride [Moles/Vol] 107 mmol/L Normal 98-108 [facility] Comment on above: Performed By: #### L 100.0100, L500.2500 ####[facility] [address] [place], [address] CO2 [Moles/Vol] 26.0 mmol/L Normal 21.0-32.0 [facility] Comment on above: Performed By: #### L 100.0100, L500.2500 ####[facility] [address] [place], [address] Creatinine [Mass/Vol] 0.95 mg/dL Normal 0.70-1.20 [facility] Comment on above: Performed By: #### L 100.0100, L500.2500 ####[facility] [address] [place], [address] ECRCL 37.09 ml/min Low 50-250 [facility] Comment on above: Performed By: #### L 100.0100, L500.2500 ####[facility] [address] [place], [address] GAP 8 Normal 5-15 [facility] Comment on above: Performed By: #### L 100.0100, L500.2500 ####[facility] [address] [place], [address] GFR/1.73 sq M.predicted among non-blacks MDRD (S/P/Bld) [Vol rate/Area] 58 mL/min/{1.73_m2} Low >60 [facility] Comment on above: Result Comment: mL/m in/1.73m2 CKD-EPI Creatinine Equation (2020) Performed By: #### L 100.0100, L500.2500 ####[facility] [address] [place], [address] Glucose [Mass/Vol] 88 mg/dL Normal 70-99 [facility] Comment on above: Performed By: #### L 100.0100, L500.2500 ####[facility] [address] [place], [address] Potassium [Moles/Vol] 5.1 mmol/L Normal 3.3-5.1 [facility] Comment on above: Performed By: #### L 100.0100, L500.2500 ####[facility] [address] [place], [address] Sodium [Moles/Vol] 141 mmol/L Normal 133-145 [facility] Comment on above: Performed By: #### L 100.0100, L500.2500 ####[facility] [address] [place], [address] Urea nitrogen [Mass/Vol] 19 mg/dL Normal 4-19 [facility] Comment on above: Performed By: #### L 100.0100, L500.2500 ####[facility] [address] [place], [address] CBC W/Diff, Automatedon 04-08 Absolute Lymph 1.96 X10 3/uL Normal 0.83-4.51 [facility] Comment on above: Performed By: #### L 100.0100, L500.2500 ####[facility] [address] [place], [address] Absolute Neut 3.4 X10 3/uL Normal 2.0-7.7 [facility] Comment on above: Performed By: #### L 100.0100, L500.2500 ####[facility] [address] [place], [address] Basophils/100 WBC (Bld) 0.4 % Normal 0-1 [facility] Comment on above: Performed By: #### L 100.0100, L500.2500 ####[facility] [address] [place], [address] Eosinophils/100 WBC (Bld) 5.3 % High 0-5 [facility] Comment on above: Performed By: #### L 100.0100, L500.2500 ####[facility] [address] [place], [address] Erythrocyte distribution width (RBC) [Ratio] 13.9 % Normal 11.6-14.6 [facility] Comment on above: Performed By: #### L 100.0100, L500.2500 ####[facility] [address] [place], [address] Hematocrit (Bld) [Volume fraction] 29.1 % Low 37-47 [facility] Comment on above: Performed By: #### L 100.0100, L500.2500 ####[facility] [address] [place], [address] Hemoglobin (Bld) [Mass/Vol] 9.0 g/dL Low 12.0-15.0 [facility] Comment on above: Performed By: #### L 100.0100, L500.2500 ####[facility] [address] [place], [address] IG% 1.500 High 0.0-0.9 [facility] Comment on above: Result Comment: IG% - Immature Granulocytes (promyelocytes, myelocytes andmetamyelocytes) > 1% indicates that a LEFT SHIFT is Present. Performed By: #### L 100.0100, L500.2500 ####[facility] [address] [place], [address] Lymphocytes/100 WBC (Bld) 29.0 % Normal 19-41 [facility] Comment on above: Performed By: #### L 100.0100, L500.2500 ####[facility] [address] [place], [address] MCH (RBC) [Entitic mass] 30.8 pg Normal 27.0-32.0 [facility] Comment on above: Performed By: #### L 100.0100, L500.2500 ####[facility] [address] [place], [address] MCHC (RBC) [Mass/Vol] 30.9 g/dL Low 32-36 [facility] Comment on above: Performed By: #### L 100.0100, L500.2500 ####[facility] [address] [place], [address] MCV (RBC) [Entitic vol] 99.7 fL High 81-99 [facility] Comment on above: Performed By: #### L 100.0100, L500.2500 ####[facility] [address] [place], [address] Monocytes/100 WBC (Bld) 13.0 % High 0-10 [facility] Comment on above: Performed By: #### L 100.0100, L500.2500 ####[facility] [address] [place], [address] Neutrophils/100 WBC (Bld) 50.8 % Normal 47-70 [facility] Comment on above: Performed By: #### L 100.0100, L500.2500 ####[facility] [address] [place], [address] Nucleated RBC (Bld) [#/Vol] 0 10*3/uL Normal 0-5 [facility] Comment on above: Performed By: #### L 100.0100, L500.2500 ####[facility] [address] [place], [address] Platelet mean volume (Bld) [Entitic vol] 10.4 fL Normal 6.2-12.0 [facility] Comment on above: Performed By: #### L 100.0100, L500.2500 ####[facility] [address] [place], [address] Platelets (Bld) [#/Vol] 273 10*3/uL Normal 150-450 [facility] Comment on above: Performed By: #### L 100.0100, L500.2500 ####[facility] [address] [place], [address] RBC (Bld) [#/Vol] 2.92 10*6/uL Low 4.2-5.4 [facility] Comment on above: Performed By: #### L 100.0100, L500.2500 ####[facility] [address] [place], [address] RDW SD 51.4 fl High 35.1-43.9 [facility] Comment on above: Performed By: #### L 100.0100, L500.2500 ####[facility] [address] [place], [address] WBC (Bld) [#/Vol] 6.8 10*3/uL Normal 4.4-11.0 [facility] Comment on above: Performed By: #### L 100.0100, L500.2500 ####[facility] [address] [place], [address] COVID 19 AG RAPID (RN COLLEDeepa T)on 04-27-2025 SARS-CoV-2 (COVID-19) RNA AQUILINO+probe Ql (Unsp spec) Normal [facility] Comment on above: Performed By: #### M 100.505 ####[facility] [address] [place], [place], [address] Hepatitis B Core Ab Totalon 04-26-2025 HEP B CORE,TOT Negative Normal Negative [facility] Comment on above: Order Comment: Has p t arrived? Y Result Comment: Perf ormed at: [place] [id number] Director: Justo Trevizo PhD, Phone: [phone] Performed By: #### L 3890.6301, L3100.0460, L3890.6006, L3890.6202, L3890.6102 ####[facility] [address] [place], [address] HIVon 04-25-2025 HIV Non-Reactive Normal Nonreactive [facility] Comment on above: Order Comment: Reaso n for Exam: EXPOSURE Result Comment: Non- ReactiveReactiveRepeatedly reactive samples must be confirmed according toCDC recommended confirmatory algorithms. The subresults foreither HIVAG or AHIV can be used as an aid in the selectionof the confirmation algorithm for reactive samples.Send out specimens with Reactive results to [facility] ? forconfirmation.Order the HIV antibody detection and differentiation:lc#[id number] Performed By: #### L 3890.6301, L3100.0460, L3890.6006, L3890.6202, L3890.6102 ####[facility] [address] [place], [address] Hepatitis B Surface Antibody on 04-25-2025 HEP B Surf Ab REAC Normal [facility] Comment on above: Result Comment: <8.5 mIU/mL: Non-Reactive8.5<= x <11.5 mIU/mL: Indeterminate>=11.5 mIU/mL: Reactive Non Reactive: Inconsistent with immunity less than <10 mIU/mL Reactive: Consistent with immunity greater than or equal to 10 mIU/mL Performed By: #### L 3890.6301, L3100.0460, L3890.6006, L3890.6202, L3890.6102 ####[facility] [address] [place], [address] Hepatitis C Antibodyon 04-25 Hepatitis C Ab Non-Reactive Normal Nonreactive [facility] Comment on above: Order Comment: Reaso n for Exam: EXPOSURE Result Comment: Reac tive: Presumptive evidence of antibodies to HCV. [facility].Non-Reactive: Antibodies to HCV were not detected; does notexclude the possibility of exposure to HCVReactive Results are presumptive evidence of antibodies toHCV. Follow CDC recommendations for supplemental testing.Order confirmation testing: HCV Quant by PCR testing -HCVPCR #[id number] Non Reactive: < 0.8 Equivocal: >/= 0.8 to < 1.0 Reactive: >/= 1.0The [facility] requires that a reactive/equivocal HCV antibodyresult be sent out for confirmation. HCV Quant by PCRtesting. Performed By: #### L 3890.6301, L3100.0460, L3890.6006, L3890.6202, L3890.6102 ####[facility] [address] [place], [place], [address] L3890.6102on 04-25-2025 HEP B Surf Ag Non-Reactive Normal Nonreactive [facility] Comment on above: Order Comment: Reaso n for Exam: EXPOSURE Result Comment: Reac tive: Presumptive evidence of HBV. Repeatedly reactivesamples must be confirmed using a neutralization test([employer] HBsAg Confirmatory Test)Non-Reactive: HBsAg not detected; does not exclude thepossibility of exposure to HBV Performed By: #### L 3890.6301, L3100.0460, L3890.6006, L3890.6202, L3890.6102 ####[facility] [address] [place], [address] Vitamin B1, Thiamineon 04-23 VIT B1 THIAMINE 93.7 nmol/L Normal 66.5-200.0 [facility] Comment on above: Order Comment: Test( s) 566979-Iuu. B1, Whole Bloodwas developed and its performance characteristicsdetermined by [employer]. It has not been cleared or approvedby the Food and Drug Administration. Result Comment: Perf ormed at: - [facility] [id number] Director: Harsha Cuba MD, Phone: [phone] Performed By: #### L 3300.8000, L506.0200, L503.0106 ####[facility] [address] [place], [address] Basic Metabolic Profile (BMP )on 04-22-2025 BUN/CRE 28.7 RATIO High 10-20 [facility] Comment on above: Performed By: #### L 500.2500 ####[facility] [address] [place], [address] Calcium [Mass/Vol] 9.4 mg/dL Normal 7.6-11.0 [facility] Comment on above: Performed By: #### L 500.2500 ####[facility] [address] [place], [address] Chloride [Moles/Vol] 104 mmol/L Normal 98-108 [facility] Comment on above: Performed By: #### L 500.2500 ####[facility] [address] [place], [address] CO2 [Moles/Vol] 25.7 mmol/L Normal 21.0-32.0 [facility] Comment on above: Performed By: #### L 500.2500 ####[facility] [address] [place], [address] Creatinine [Mass/Vol] 1.36 mg/dL High 0.70-1.20 [facility] Comment on above: Performed By: #### L 500.2500 ####[facility] [address] [place], [address] ECRCL 25.91 ml/min Low 50-250 [facility] Comment on above: Performed By: #### L 500.2500 ####[facility] [address] [place], [address] GAP 9 Normal 5-15 [facility] Comment on above: Performed By: #### L 500.2500 ####[facility] [address] [place], [address] GFR/1.73 sq M.predicted among non-blacks MDRD (S/P/Bld) [Vol rate/Area] 37 mL/min/{1.73_m2} Low >60 [facility] Comment on above: Result Comment: mL/m in/1.73m2 CKD-EPI Creatinine Equation (2020) Performed By: #### L 500.2500 ####[facility] [address] [place], [address] Glucose [Mass/Vol] 97 mg/dL Normal 70-99 [facility] Comment on above: Performed By: #### L 500.2500 ####[facility] [address] [place], [address] Potassium [Moles/Vol] 4.0 mmol/L Normal 3.3-5.1 [facility] Comment on above: Performed By: #### L 500.2500 ####[facility] [address] [place], [address] Sodium [Moles/Vol] 138 mmol/L Normal 133-145 [facility] Comment on above: Performed By: #### L 500.2500 ####[facility] [address] [place], [address] Urea nitrogen [Mass/Vol] 39 mg/dL High 4-19 [facility] Comment on above: Performed By: #### L 500.2500 ####[facility] [address] [place], [address] Basic Metabolic Profile (BMP )on 04-21-2025 BUN/CRE 32.0 RATIO High 10-20 [facility] Comment on above: Performed By: #### L 100.0100, L500.2500 ####[facility] [address] [place], [address] Calcium [Mass/Vol] 9.2 mg/dL Normal 7.6-11.0 [facility] Comment on above: Performed By: #### L 100.0100, L500.2500 ####[facility] [address] [place], [address] Chloride [Moles/Vol] 106 mmol/L Normal 98-108 [facility] Comment on above: Performed By: #### L 100.0100, L500.2500 ####[facility] [address] [place], [address] CO2 [Moles/Vol] 24.0 mmol/L Normal 21.0-32.0 [facility] Comment on above: Performed By: #### L 100.0100, L500.2500 ####[facility] [address] [place], [address] Creatinine [Mass/Vol] 1.24 mg/dL High 0.70-1.20 [facility] Comment on above: Performed By: #### L 100.0100, L500.2500 ####[facility] [address] [place], [address] ECRCL 28.42 ml/min Low 50-250 [facility] Comment on above: Performed By: #### L 100.0100, L500.2500 ####[facility] [address] [place], [address] GAP 8 Normal 5-15 [facility] Comment on above: Performed By: #### L 100.0100, L500.2500 ####[facility] [address] [place], [address] GFR/1.73 sq M.predicted among non-blacks MDRD (S/P/Bld) [Vol rate/Area] 42 mL/min/{1.73_m2} Low >60 [facility] Comment on above: Result Comment: mL/m in/1.73m2 CKD-EPI Creatinine Equation (2020) Performed By: #### L 100.0100, L500.2500 ####[facility] [address] [place], [address] Glucose [Mass/Vol] 98 mg/dL Normal 70-99 [facility] Comment on above: Performed By: #### L 100.0100, L500.2500 ####[facility] [address] [place], [address] Potassium [Moles/Vol] 5.2 mmol/L High 3.3-5.1 [facility] Comment on above: Performed By: #### L 100.0100, L500.2500 ####[facility] [address] [place], [address] Sodium [Moles/Vol] 137 mmol/L Normal 133-145 [facility] Comment on above: Performed By: #### L 100.0100, L500.2500 ####[facility] [address] [place], [address] Urea nitrogen [Mass/Vol] 40 mg/dL High 4-19 [facility] Comment on above: Performed By: #### L 100.0100, L500.2500 ####[facility] [address] [place], [address] CBC W/Diff, Automatedon 08-1 -2024 Absolute Lymph 2.50 X10 3/uL Normal 0.83-4.51 [facility] Comment on above: Performed By: #### L 100.0100, L500.2500 ####[facility] [address] [place], [address] Absolute Neut 4.9 X10 3/uL Normal 2.0-7.7 [facility] Comment on above: Performed By: #### L 100.0100, L500.2500 ####[facility] [address] [place], [address] Basophils/100 WBC (Bld) 0.3 % Normal 0-1 [facility] Comment on above: Performed By: #### L 100.0100, L500.2500 ####[facility] [address] [place], [address] Eosinophils/100 WBC (Bld) 6.8 % High 0-5 [facility] Comment on above: Performed By: #### L 100.0100, L500.2500 ####[facility] [address] [place], [address] Erythrocyte distribution width (RBC) [Ratio] 14.8 % High 11.6-14.6 [facility] Comment on above: Performed By: #### L 100.0100, L500.2500 ####[facility] [address] [place], [address] Hematocrit (Bld) [Volume fraction] 31.5 % Low 37-47 [facility] Comment on above: Performed By: #### L 100.0100, L500.2500 ####[facility] [address] [place], [address] Hemoglobin (Bld) [Mass/Vol] 9.7 g/dL Low 12.0-15.0 [facility] Comment on above: Performed By: #### L 100.0100, L500.2500 ####[facility] [address] [place], [address] IG% 0.600 Normal 0.0-0.9 [facility] Comment on above: Result Comment: IG% - Immature Granulocytes (promyelocytes, myelocytes andmetamyelocytes) > 1% indicates that a LEFT SHIFT is Present. Performed By: #### L 100.0100, L500.2500 ####[facility] [address] [place], [address] Lymphocytes/100 WBC (Bld) 26.9 % Normal 19-41 [facility] Comment on above: Performed By: #### L 100.0100, L500.2500 ####[facility] [address] [place], [address] MCH (RBC) [Entitic mass] 31.0 pg Normal 27.0-32.0 [facility] Comment on above: Performed By: #### L 100.0100, L500.2500 ####[facility] [address] [place], [address] MCHC (RBC) [Mass/Vol] 30.8 g/dL Low 32-36 [facility] Comment on above: Performed By: #### L 100.0100, L500.2500 ####[facility] [address] [place], [address] MCV (RBC) [Entitic vol] 100.6 fL High 81-99 [facility] Comment on above: Performed By: #### L 100.0100, L500.2500 ####[facility] [address] [place], [address] Monocytes/100 WBC (Bld) 12.5 % High 0-10 [facility] Comment on above: Performed By: #### L 100.0100, L500.2500 ####[facility] [address] [place], [address] Neutrophils/100 WBC (Bld) 52.9 % Normal 47-70 [facility] Comment on above: Performed By: #### L 100.0100, L500.2500 ####[facility] [address] [place], [address] Nucleated RBC (Bld) [#/Vol] 0 10*3/uL Normal 0-5 [facility] Comment on above: Performed By: #### L 100.0100, L500.2500 ####[facility] [address] [place], [address] Platelet mean volume (Bld) [Entitic vol] 10.4 fL Normal 6.2-12.0 [facility] Comment on above: Performed By: #### L 100.0100, L500.2500 ####[facility] [address] [place], [address] Platelets (Bld) [#/Vol] 190 10*3/uL Normal 150-450 [facility] Comment on above: Performed By: #### L 100.0100, L500.2500 ####[facility] [address] [place], [address] RBC (Bld) [#/Vol] 3.13 10*6/uL Low 4.2-5.4 [facility] Comment on above: Performed By: #### L 100.0100, L500.2500 ####[facility] [address] [place], [address] RDW SD 54.3 fl High 35.1-43.9 [facility] Comment on above: Performed By: #### L 100.0100, L500.2500 ####[facility] [address] [place], [address] WBC (Bld) [#/Vol] 9.3 10*3/uL Normal 4.4-11.0 [facility] Comment on above: Performed By: #### L 100.0100, L500.2500 ####[facility] [address] [place], [address] Absolute lymphocyte countOrd ered By: Sean Rizvi on 04-20-2025 Lymphocytes Auto (Unsp spec) [#/Vol] 2.19 10*3/uL 0.83-4.51 [facility] Absolute neutrophil countOrd ered By: Sean Rizvi on 04-20-2025 Neutrophils (Bld) [#/Vol] 5.0 10*3/uL 2.0-7.7 [facility] Anion gap in Serum or Plasma Ordered By: Sean Rizvi on 04-20-2025 Anion gap [Moles/Vol] 8 mmol/L 5-15 [facility] Automated lymphocyte count a s percentage of total leukocytesOrdered By: Sean Rizvi on 04-20-2025 Lymphocytes/100 WBC Auto (Unsp spec) 24.7 % -41 [facility] BUN/creatinine ratioOrdered By: Sean Rizvi on 04-20-2025 Urea nitrogen/Creatinine [Mass ratio] 30.1 mg/mg High 10-20 [facility] Basic Metabolic Profile (BMP )on 04-20-2025 BUN/CRE 30.1 RATIO High 10- [facility] Comment on above: Performed By: #### L 500.2500, L100.0100 ####[facility] [address] [place], [address] Calcium [Mass/Vol] 9.2 mg/dL Normal 7.6-11.0 [facility] Comment on above: Performed By: #### L 500.2500, L100.0100 ####[facility] [address] [place], [address] Chloride [Moles/Vol] 106 mmol/L Normal 98-108 [facility] Comment on above: Performed By: #### L 500.2500, L100.0100 ####[facility] [address] [place], [address] CO2 [Moles/Vol] 24.8 mmol/L Normal 21.0-32.0 [facility] Comment on above: Performed By: #### L 500.2500, L100.0100 ####[facility] [address] [place], [address] Creatinine [Mass/Vol] 1.10 mg/dL Normal 0.70-1.20 [facility] Comment on above: Performed By: #### L 500.2500, L100.0100 ####[facility] [address] [place], [address] ECRCL 31.89 ml/min Low 50-250 [facility] Comment on above: Performed By: #### L 500.2500, L100.0100 ####[facility] [address] [place], [address] GAP 8 Normal 5-15 [facility] Comment on above: Performed By: #### L 500.2500, L100.0100 ####[facility] [address] [place], [address] GFR/1.73 sq M.predicted among non-blacks MDRD (S/P/Bld) [Vol rate/Area] 48 mL/min/{1.73_m2} Low >60 [facility] Comment on above: Result Comment: mL/m in/1.73m2 CKD-EPI Creatinine Equation (2020) Performed By: #### L 500.2500, L100.0100 ####[facility] [address] [place], [address] Glucose [Mass/Vol] 99 mg/dL Normal 70-99 [facility] Comment on above: Performed By: #### L 500.2500, L100.0100 ####[facility] [address] [place], [address] Potassium [Moles/Vol] 4.7 mmol/L Normal 3.3-5.1 [facility] Comment on above: Performed By: #### L 500.2500, L100.0100 ####[facility] [address] [place], [address] Sodium [Moles/Vol] 139 mmol/L Normal 133-145 [facility] Comment on above: Performed By: #### L 500.2500, L100.0100 ####[facility] [address] [place], [address] Urea nitrogen [Mass/Vol] 33 mg/dL High - [facility] Comment on above: Performed By: #### L 500.2500, L100.0100 ####[facility] [address] [place], [address] Basophil percentageOrdered B y: Seanwaylon Rizvi on 04-20-2025 Basophils/100 WBC (Bld) 0.7 % 0-1 [facility] CBC W/Diff, Automatedon 04-07 Absolute Lymph 2.19 X10 3/uL Normal 0.83-4.51 [facility] Comment on above: Performed By: #### L 500.2500, L100.0100 ####[facility] [address] [place], [address] Absolute Neut 5.0 X10 3/uL Normal 2.0-7.7 [facility] Comment on above: Performed By: #### L 500.2500, L100.0100 ####[facility] [address] [place], [address] Basophils/100 WBC (Bld) 0.7 % Normal 0-1 [facility] Comment on above: Performed By: #### L 500.2500, L100.0100 ####[facility] [address] [place], [address] Eosinophils/100 WBC (Bld) 6.0 % High 0-5 [facility] Comment on above: Performed By: #### L 500.2500, L100.0100 ####[facility] [address] [place], [address] Erythrocyte distribution width (RBC) [Ratio] 14.6 % Normal 11.6-14.6 [facility] Comment on above: Performed By: #### L 500.2500, L100.0100 ####[facility] [address] [place], [address] Hematocrit (Bld) [Volume fraction] 33.1 % Low 37-47 [facility] Comment on above: Performed By: #### L 500.2500, L100.0100 ####[facility] [address] [place], [address] Hemoglobin (Bld) [Mass/Vol] 10.2 g/dL Low 12.0-15.0 [facility] Comment on above: Performed By: #### L 500.2500, L100.0100 ####[facility] [address] [place], [address] IG% 0.800 Normal 0.0-0.9 [facility] Comment on above: Result Comment: IG% - Immature Granulocytes (promyelocytes, myelocytes andmetamyelocytes) > 1% indicates that a LEFT SHIFT is Present. Performed By: #### L 500.2500, L100.0100 ####[facility] [address] [place], [address] Lymphocytes/100 WBC (Bld) 24.7 % Normal 19-41 [facility] Comment on above: Performed By: #### L 500.2500, L100.0100 ####[facility] [address] [place], [address] MCH (RBC) [Entitic mass] 31.1 pg Normal 27.0-32.0 [facility] Comment on above: Performed By: #### L 500.2500, L100.0100 ####[facility] [address] [place], [address] MCHC (RBC) [Mass/Vol] 30.8 g/dL Low 32-36 [facility] Comment on above: Performed By: #### L 500.2500, L100.0100 ####[facility] [address] [place], [address] MCV (RBC) [Entitic vol] 100.9 fL High 81-99 [facility] Comment on above: Performed By: #### L 500.2500, L100.0100 ####[facility] [address] [place], [address] Monocytes/100 WBC (Bld) 11.7 % High 0-10 [facility] Comment on above: Performed By: #### L 500.2500, L100.0100 ####[facility] [address] [place], [address] Neutrophils/100 WBC (Bld) 56.1 % Normal 47-70 [facility] Comment on above: Performed By: #### L 500.2500, L100.0100 ####[facility] [address] [place], [address] Nucleated RBC (Bld) [#/Vol] 0 10*3/uL Normal 0-5 [facility] Comment on above: Performed By: #### L 500.2500, L100.0100 ####[facility] [address] [place], [address] Platelet mean volume (Bld) [Entitic vol] 10.8 fL Normal 6.2-12.0 [facility] Comment on above: Performed By: #### L 500.2500, L100.0100 ####[facility] [address] [place], [address] Platelets (Bld) [#/Vol] 221 10*3/uL Normal 150-450 [facility] Comment on above: Performed By: #### L 500.2500, L100.0100 ####[facility] [address] [place], [address] RBC (Bld) [#/Vol] 3.28 10*6/uL Low 4.2-5.4 [facility] Comment on above: Performed By: #### L 500.2500, L100.0100 ####[facility] [address] [place], [address] RDW SD 54.4 fl High 35.1-43.9 [facility] Comment on above: Performed By: #### L 500.2500, L100.0100 ####[facility] [address] [place], [address] WBC (Bld) [#/Vol] 8.9 10*3/uL Normal 4.4-11.0 [facility] Comment on above: Performed By: #### L 500.2500, L100.0100 ####[facility] [address] [place], [address] Carbon dioxide, total [Moles /volume] in Central venous bloodOrdered By: Sean Rizvi on 04-20-2025 CO2 [Moles/Vol] 24.8 mmol/L 21.0-32.0 [facility] Chloride assayOrdered By: Taco Rizvi on 04-20-2025 Chloride [Moles/Vol] 106 mmol/L 98-108 [facility] Eosinophil percentageOrdered By: Sean Rizvi on 04-20-2025 Eosinophils/100 WBC (Bld) 6.0 % High 0-5 [facility] Erythrocyte distribution wid th ratioOrdered By: Sean Rizvi on 04-20-2025 Erythrocyte distribution width (RBC) [Ratio] 14.6 % 11.6-14.6 [facility] Erythrocyte distribution wid th standard deviationOrdered By: Sean Rizvi on 04-20-2025 Erythrocyte distribution width (RBC) [Ratio] 54.4 fl High 35.1-43.9 [facility] Glomerular filtration rate ( GFR) estimation/1.73 sq m using serum, plasma, or whole bOrdered By: Sean Rizvi on 04-20-2025 GFR/1.73 sq M.predicted among non-blacks MDRD (S/P/Bld) [Vol rate/Area] 48 mL/min/{1.73_m2} Low >60 [facility] Comment on above: mL/min/1.73m2 CKD-EP I Creatinine Equation (2020) Hematocrit Auto (Bld) [Volum e fraction]Ordered By: Sean Rizvi on 04-20-2025 Hematocrit (Bld) [Volume fraction] 33.1 % Low 37-47 [facility] Hemoglobin measurementOrdere d By: Sean Rizvi on 04-20-2025 Hemoglobin (Bld) [Mass/Vol] 10.2 g/dL Low 12.0-15.0 [facility] Immature granulocytes/100 WB C Auto (Bld)Ordered By: Sean Rizvi on 04-20-2025 Immature granulocytes/100 WBC (Bld) 0.800 % 0.0-0.9 [facility] Comment on above: IG% - Immature Granu locytes (promyelocytes, myelocytes and metamyelocytes) > 1% indicates that a LEFT SHIFT is Present. MCV (mean corpuscular volume ) determinationOrdered By: Sean Rizvi on 04-20-2025 MCV (RBC) [Entitic vol] 100.9 fL High 81-99 [facility] Mean corpuscular hemoglobin (MCH) determinationOrdered By: Sean Rizvi on 04-20-2025 MCH (RBC) [Entitic mass] 31.1 pg 27.0-32.0 [facility] Mean corpuscular hemoglobin concentration (MCHC) determinationOrdered By: Sean Rizvi on 04-20-2025 MCHC (RBC) [Mass/Vol] 30.8 g/dL Low 32-36 [facility] Mean platelet volume determi nationOrdered By: Sean Rizvi on 04-20-2025 Platelet mean volume (Bld) [Entitic vol] 10.8 fL 6.2-12.0 [facility] Monocyte percentageOrdered B y: Sean Rizvi on 04-20-2025 Monocytes/100 WBC (Bld) 11.7 % High 0-10 [facility] Neutrophil percentageOrdered By: Sean Rizvi on 04-20-2025 Neutrophils/100 WBC (Bld) 56.1 % 47-70 [facility] Nucleated red blood cell per centageOrdered By: Sean Rizvi on 04-20-2025 Nucleated RBC/100 WBC (Bld) [Ratio] 0 % 0-5 [facility] Platelet countOrdered By: Taco Rizvi on 04-20-2025 Platelets (Bld) [#/Vol] 221 10*3/uL 150-450 [facility] Potassium measurement (mass/ volume)Ordered By: Sean Rizvi on 04-20-2025 Potassium (Unsp spec) [Mass/Vol] 4.7 mmol/L 3.3-5.1 [facility] RBC Auto (Bld) [#/Vol]Ordere d By: Sean Rizvi on 04-20-2025 RBC (Bld) [#/Vol] 3.28 10*6/uL Low 4.2-5.4 [facility] Serum creatinine measurement (mass/volume)Ordered By: Sean Rizvi on 04-20-2025 Creatinine [Mass/Vol] 1.10 mg/dL 0.70-1.20 [facility] Serum glucose measurement (m ass/volume)Ordered By: Sean Rizvi on 04-20-2025 Glucose [Mass/Vol] 99 mg/dL 70-99 [facility] Serum or plasma calcium jose urement (mass/volume)Ordered By: Sean Rizvi on 04-20-2025 Calcium [Mass/Vol] 9.2 mg/dL 7.6-11.0 [facility] Serum or plasma urea nitroge n measurement (mass/volume)Ordered By: Sean Rizvi on 04-20-2025 Urea nitrogen [Mass/Vol] 33 mg/dL High 4-19 [facility] Sodium levelOrdered By: Octavia Rizvi on 04-20-2025 Sodium [Moles/Vol] 139 mmol/L 133-145 [facility] White blood cell (WBC) count Ordered By: Sean Rizvi on 04-20-2025 WBC (Bld) [#/Vol] 8.9 10*3/uL 4.4-11.0 [facility] Absolute lymphocyte countOrd ered By: Seanwaylon Rizvi on 04-19-2025 Lymphocytes Auto (Unsp spec) [#/Vol] 2.24 10*3/uL 0.83-4.51 [facility] Absolute neutrophil countOrd ered By: [facility] Dmitri on 04-19-2025 Neutrophils (Bld) [#/Vol] 4.2 10*3/uL 2.0-7.7 [facility] Anion gap in Serum or Plasma Ordered By: Seanwaylon Rizvi on 04-19-2025 Anion gap [Moles/Vol] 7 mmol/L 5-15 [facility] Automated lymphocyte count a s percentage of total leukocytesOrdered By: Seanwaylon Rizvi on 04-19-2025 Lymphocytes/100 WBC Auto (Unsp spec) 28.1 % 19-41 [facility] BUN/creatinine ratioOrdered By: Seanmelinda Rizvi on 04-19-2025 Urea nitrogen/Creatinine [Mass ratio] 30.0 mg/mg High 10- [facility] Basic Metabolic Profile (BMP )on 04-19-2025 BUN/CRE 30.0 RATIO High - [facility] Comment on above: Performed By: #### L 100.0100, L500.2500 ####[facility] [address] [place], [address] Calcium [Mass/Vol] 9.0 mg/dL Normal 7.6-11.0 [facility] Comment on above: Performed By: #### L 100.0100, L500.2500 ####[facility] [address] [place], [address] Chloride [Moles/Vol] 108 mmol/L Normal 98-108 [facility] Comment on above: Performed By: #### L 100.0100, L500.2500 ####[facility] [address] [place], [address] CO2 [Moles/Vol] 25.3 mmol/L Normal 21.0-32.0 [facility] Comment on above: Performed By: #### L 100.0100, L500.2500 ####[facility] [address] [place], [address] Creatinine [Mass/Vol] 1.18 mg/dL Normal 0.70-1.20 [facility] Comment on above: Performed By: #### L 100.0100, L500.2500 ####[facility] [address] [place], [address] ECRCL 29.37 ml/min Low 50-250 [facility] Comment on above: Performed By: #### L 100.0100, L500.2500 ####[facility] [address] [place], [address] GAP 7 Normal 5-15 [facility] Comment on above: Performed By: #### L 100.0100, L500.2500 ####[facility] [address] [place], [address] GFR/1.73 sq M.predicted among non-blacks MDRD (S/P/Bld) [Vol rate/Area] 44 mL/min/{1.73_m2} Low >60 [facility] Comment on above: Result Comment: mL/m in/1.73m2 CKD-EPI Creatinine Equation (2020) Performed By: #### L 100.0100, L500.2500 ####[facility] [address] [place], [address] Glucose [Mass/Vol] 93 mg/dL Normal 70-99 [facility] Comment on above: Performed By: #### L 100.0100, L500.2500 ####[facility] [address] [place], [address] Potassium [Moles/Vol] 4.5 mmol/L Normal 3.3-5.1 [facility] Comment on above: Performed By: #### L 100.0100, L500.2500 ####[facility] [address] [place], [address] Sodium [Moles/Vol] 140 mmol/L Normal 133-145 [facility] Comment on above: Performed By: #### L 100.0100, L500.2500 ####[facility] [address] [place], [address] Urea nitrogen [Mass/Vol] 35 mg/dL High 4-19 [facility] Comment on above: Performed By: #### L 100.0100, L500.2500 ####[facility] [address] [place], [address] Basophil percentageOrdered B y: Sean Rizvi on 04-19-2025 Basophils/100 WBC (Bld) 0.8 % 0-1 [facility] CBC W/Diff, Automatedon 04-07 Absolute Lymph 2.24 X10 3/uL Normal 0.83-4.51 [facility] Comment on above: Performed By: #### L 100.0100, L500.2500 ####[facility] [address] [place], [address] Absolute Neut 4.2 X10 3/uL Normal 2.0-7.7 [facility] Comment on above: Performed By: #### L 100.0100, L500.2500 ####[facility] [address] [place], [address] Basophils/100 WBC (Bld) 0.8 % Normal 0-1 [facility] Comment on above: Performed By: #### L 100.0100, L500.2500 ####[facility] [address] [place], [address] Eosinophils/100 WBC (Bld) 7.5 % High 0-5 [facility] Comment on above: Performed By: #### L 100.0100, L500.2500 ####[facility] [address] [place], [address] Erythrocyte distribution width (RBC) [Ratio] 14.7 % High 11.6-14.6 [facility] Comment on above: Performed By: #### L 100.0100, L500.2500 ####[facility] [address] [place], [address] Hematocrit (Bld) [Volume fraction] 33.2 % Low 37-47 [facility] Comment on above: Performed By: #### L 100.0100, L500.2500 ####[facility] [address] [place], [address] Hemoglobin (Bld) [Mass/Vol] 10.4 g/dL Low 12.0-15.0 [facility] Comment on above: Performed By: #### L 100.0100, L500.2500 ####[facility] [address] [place], [address] IG% 0.400 Normal 0.0-0.9 [facility] Comment on above: Result Comment: IG% - Immature Granulocytes (promyelocytes, myelocytes andmetamyelocytes) > 1% indicates that a LEFT SHIFT is Present. Performed By: #### L 100.0100, L500.2500 ####[facility] [address] [place], [address] Lymphocytes/100 WBC (Bld) 28.1 % Normal 19-41 [facility] Comment on above: Performed By: #### L 100.0100, L500.2500 ####[facility] [address] [place], [address] MCH (RBC) [Entitic mass] 31.2 pg Normal 27.0-32.0 [facility] Comment on above: Performed By: #### L 100.0100, L500.2500 ####[facility] [address] [place], [address] MCHC (RBC) [Mass/Vol] 31.3 g/dL Low 32-36 [facility] Comment on above: Performed By: #### L 100.0100, L500.2500 ####[facility] [address] [place], [address] MCV (RBC) [Entitic vol] 99.7 fL High 81-99 [facility] Comment on above: Performed By: #### L 100.0100, L500.2500 ####[facility] [address] [place], [address] Monocytes/100 WBC (Bld) 10.7 % High 0-10 [facility] Comment on above: Performed By: #### L 100.0100, L500.2500 ####[facility] [address] [place], [address] Neutrophils/100 WBC (Bld) 52.5 % Normal 47-70 [facility] Comment on above: Performed By: #### L 100.0100, L500.2500 ####[facility] [address] [place], [address] Nucleated RBC (Bld) [#/Vol] 0 10*3/uL Normal 0-5 [facility] Comment on above: Performed By: #### L 100.0100, L500.2500 ####[facility] [address] [place], [address] Platelet mean volume (Bld) [Entitic vol] 10.3 fL Normal 6.2-12.0 [facility] Comment on above: Performed By: #### L 100.0100, L500.2500 ####[facility] [address] [place], [address] Platelets (Bld) [#/Vol] 206 10*3/uL Normal 150-450 [facility] Comment on above: Performed By: #### L 100.0100, L500.2500 ####[facility] [address] [place], [address] RBC (Bld) [#/Vol] 3.33 10*6/uL Low 4.2-5.4 [facility] Comment on above: Performed By: #### L 100.0100, L500.2500 ####[facility] [address] [place], [address] RDW SD 54.4 fl High 35.1-43.9 [facility] Comment on above: Performed By: #### L 100.0100, L500.2500 ####[facility] [address] [place], [address] WBC (Bld) [#/Vol] 8.0 10*3/uL Normal 4.4-11.0 [facility] Comment on above: Performed By: #### L 100.0100, L500.2500 ####[facility] [address] [place], [address] Carbon dioxide, total [Moles /volume] in Central venous bloodOrdered By: Sean Rizvi on 04-19-2025 CO2 [Moles/Vol] 25.3 mmol/L 21.0-32.0 [facility] Chloride assayOrdered By: Taco Rizvi on 04-19-2025 Chloride [Moles/Vol] 108 mmol/L 98-108 [facility] Eosinophil percentageOrdered By: Sean Rizvi on 04-19-2025 Eosinophils/100 WBC (Bld) 7.5 % High 0-5 [facility] Erythrocyte distribution wid th ratioOrdered By: Sean Rizvi on 04-19-2025 Erythrocyte distribution width (RBC) [Ratio] 14.7 % High 11.6-14.6 [facility] Erythrocyte distribution wid th standard deviationOrdered By: Sean Rizvi on 04-19-2025 Erythrocyte distribution width (RBC) [Ratio] 54.4 fl High 35.1-43.9 [facility] Glomerular filtration rate ( GFR) estimation/1.73 sq m using serum, plasma, or whole bOrdered By: Sean Rizvi on 04-19-2025 GFR/1.73 sq M.predicted among non-blacks MDRD (S/P/Bld) [Vol rate/Area] 44 mL/min/{1.73_m2} Low >60 [facility] Comment on above: mL/min/1.73m2 CKD-EP I Creatinine Equation (2020) Hematocrit Auto (Bld) [Volum e fraction]Ordered By: Sean Rizvi on 04-19-2025 Hematocrit (Bld) [Volume fraction] 33.2 % Low 37-47 [facility] Hemoglobin measurementOrdere d By: Sean Rizvi on 04-19-2025 Hemoglobin (Bld) [Mass/Vol] 10.4 g/dL Low 12.0-15.0 [facility] Immature granulocytes/100 WB C Auto (Bld)Ordered By: Sean Rizvi on 04-19-2025 Immature granulocytes/100 WBC (Bld) 0.400 % 0.0-0.9 [facility] Comment on above: IG% - Immature Granu locytes (promyelocytes, myelocytes and metamyelocytes) > 1% indicates that a LEFT SHIFT is Present. MCV (mean corpuscular volume ) determinationOrdered By: Sean Rizvi on 04-19-2025 MCV (RBC) [Entitic vol] 99.7 fL High 81-99 [facility] Mean corpuscular hemoglobin (MCH) determinationOrdered By: Sean Rizvi on 04-19-2025 MCH (RBC) [Entitic mass] 31.2 pg 27.0-32.0 [facility] Mean corpuscular hemoglobin concentration (MCHC) determinationOrdered By: Sean Rizvi on 04-19-2025 MCHC (RBC) [Mass/Vol] 31.3 g/dL Low 32-36 [facility] Mean platelet volume determi nationOrdered By: Sean Rizvi on 04-19-2025 Platelet mean volume (Bld) [Entitic vol] 10.3 fL 6.2-12.0 [facility] Monocyte percentageOrdered B y: Sean Rizvi on 04-19-2025 Monocytes/100 WBC (Bld) 10.7 % High 0-10 [facility] Neutrophil percentageOrdered By: Sean Rizvi on 04-19-2025 Neutrophils/100 WBC (Bld) 52.5 % 47-70 [facility] Nucleated red blood cell per centageOrdered By: Sean Rizvi on 04-19-2025 Nucleated RBC/100 WBC (Bld) [Ratio] 0 % 0-5 [facility] Platelet countOrdered By: Taco Rizvi on 04-19-2025 Platelets (Bld) [#/Vol] 206 10*3/uL 150-450 [facility] Potassium measurement (mass/ volume)Ordered By: Sean Rizvi on 04-19-2025 Potassium (Unsp spec) [Mass/Vol] 4.5 mmol/L 3.3-5.1 [facility] RBC Auto (Bld) [#/Vol]Ordere d By: Sean Rizvi on 04-19-2025 RBC (Bld) [#/Vol] 3.33 10*6/uL Low 4.2-5.4 [facility] Serum creatinine measurement (mass/volume)Ordered By: Sean Rizvi on 04-19-2025 Creatinine [Mass/Vol] 1.18 mg/dL 0.70-1.20 [facility] Serum glucose measurement (m ass/volume)Ordered By: Sean Rizvi on 04-19-2025 Glucose [Mass/Vol] 93 mg/dL 70-99 [facility] Serum or plasma calcium jose urement (mass/volume)Ordered By: Sean Rizvi on 04-19-2025 Calcium [Mass/Vol] 9.0 mg/dL 7.6-11.0 [facility] Serum or plasma urea nitroge n measurement (mass/volume)Ordered By: Sean Rizvi on 04-19-2025 Urea nitrogen [Mass/Vol] 35 mg/dL High 4-19 [facility] Sodium levelOrdered By: Octavia Rizvi on 04-19-2025 Sodium [Moles/Vol] 140 mmol/L 133-145 [facility] White blood cell (WBC) count Ordered By: Sean Rizvi on 04-19-2025 WBC (Bld) [#/Vol] 8.0 10*3/uL 4.4-11.0 [facility] Folate [Mass/volume] in Seru m or PlasmaOrdered By: Sean Rizvi on 04-18-2025 Folate [Mass/Vol] 16.10 ng/mL 4.60-34.80 [facility] Comment on above: Hemolysis, Results w ill be affected, Requires Recollection. Folates,Serum (Folic Acid)on 04-18-2025 FOLATES,SERUM 16.10 ng/mL Normal 4.60-34.80 [facility] Comment on above: Result Comment: Hemo lysis, Results will be affected, Requires Recollection. Performed By: #### L 3300.8000, L506.0200, L503.0106 ####[facility] [address] [place], [address] Vitamin B12on 04-18-2025 Cobalamin (Vitamin B12) [Mass/Vol] 1790 pg/mL High 180-914 [facility] Comment on above: Performed By: #### L 3300.8000, L506.0200, L503.0106 ####[facility] [address] [place], [address] Vitamin B12 ser/plasOrdered By: Sean Rizvi on 04-18-2025 Cobalamin (Vitamin B12) [Mass/Vol] 1790 pg/mL High 180-914 [facility] Absolute lymphocyte countOrd ered By: Idalia Marti on 04-17-2025 Lymphocytes Auto (Unsp spec) [#/Vol] 2.25 10*3/uL 0.83-4.51 [facility] Absolute neutrophil countOrd ered By: Idalia Figueroa on 04-17-2025 Neutrophils (Bld) [#/Vol] 5.9 10*3/uL 2.0-7.7 [facility] Anion gap in Serum or Plasma Ordered By: Idalia Marti on 04-17-2025 Anion gap [Moles/Vol] 11 mmol/L 5-15 [facility] Automated lymphocyte count a s percentage of total leukocytesOrdered By: Idalia Marti on 04-17-2025 Lymphocytes/100 WBC Auto (Unsp spec) 23.4 % 19-41 [facility] BUN/creatinine ratioOrdered By: Idalia White on 04-17-2025 Urea nitrogen/Creatinine [Mass ratio] 25.3 mg/mg High 10-20 [facility] Basophil percentageOrdered B y: White on 04-17-2025 Basophils/100 WBC (Bld) 0.6 % 0-1 [facility] Bilirubin, totalOrdered By: Idalia White on 04-17-2025 Bilirubin [Mass/Vol] 0.47 mg/dL 0.00-1.30 [facility] Brain without Contraston Brain without Contrast Normal [facility] CBC W/Diff, Automatedon 04-07 Absolute Lymph 2.25 X10 3/uL Normal 0.83-4.51 [facility] Comment on above: Performed By: #### L 500.4050, L501.9520, L100.0100 ####[facility] [address] [place], [address] Absolute Neut 5.9 X10 3/uL Normal 2.0-7.7 [facility] Comment on above: Performed By: #### L 500.4050, L501.9520, L100.0100 ####[facility] [address] [place], [address] Basophils/100 WBC (Bld) 0.6 % Normal 0-1 [facility] Comment on above: Performed By: #### L 500.4050, L501.9520, L100.0100 ####[facility] [address] [place], [address] Eosinophils/100 WBC (Bld) 3.2 % Normal 0-5 [facility] Comment on above: Performed By: #### L 500.4050, L501.9520, L100.0100 ####[facility] [address] [place], [address] Erythrocyte distribution width (RBC) [Ratio] 14.8 % High 11.6-14.6 [facility] Comment on above: Performed By: #### L 500.4050, L501.9520, L100.0100 ####[facility] [address] [place], [address] Hematocrit (Bld) [Volume fraction] 33.4 % Low 37-47 [facility] Comment on above: Performed By: #### L 500.4050, L501.9520, L100.0100 ####[facility] [address] [place], [address] Hemoglobin (Bld) [Mass/Vol] 10.7 g/dL Low 12.0-15.0 [facility] Comment on above: Performed By: #### L 500.4050, L501.9520, L100.0100 ####[facility] [address] [place], [address] IG% 0.500 Normal 0.0-0.9 [facility] Comment on above: Result Comment: IG% - Immature Granulocytes (promyelocytes, myelocytes andmetamyelocytes) > 1% indicates that a LEFT SHIFT is Present. Performed By: #### L 500.4050, L501.9520, L100.0100 ####[facility] [address] [place], [address] Lymphocytes/100 WBC (Bld) 23.4 % Normal 19-41 [facility] Comment on above: Performed By: #### L 500.4050, L501.9520, L100.0100 ####[facility] [address] [place], [address] MCH (RBC) [Entitic mass] 31.6 pg Normal 27.0-32.0 [facility] Comment on above: Performed By: #### L 500.4050, L501.9520, L100.0100 ####[facility] [address] [place], [address] MCHC (RBC) [Mass/Vol] 32.0 g/dL Normal 32-36 [facility] Comment on above: Performed By: #### L 500.4050, L501.9520, L100.0100 ####[facility] [address] [place], [address] MCV (RBC) [Entitic vol] 98.5 fL Normal 81-99 [facility] Comment on above: Performed By: #### L 500.4050, L501.9520, L100.0100 ####[facility] [address] [place], [address] Monocytes/100 WBC (Bld) 11.3 % High 0-10 [facility] Comment on above: Performed By: #### L 500.4050, L501.9520, L100.0100 ####[facility] [address] [place], [address] Neutrophils/100 WBC (Bld) 61.0 % Normal 47-70 [facility] Comment on above: Performed By: #### L 500.4050, L501.9520, L100.0100 ####[facility] [address] [place], [address] Nucleated RBC (Bld) [#/Vol] 0 10*3/uL Normal 0-5 [facility] Comment on above: Performed By: #### L 500.4050, L501.9520, L100.0100 ####[facility] [address] [place], [address] Platelet mean volume (Bld) [Entitic vol] 10.4 fL Normal 6.2-12.0 [facility] Comment on above: Performed By: #### L 500.4050, L501.9520, L100.0100 ####[facility] [address] [place], [address] Platelets (Bld) [#/Vol] 245 10*3/uL Normal 150-450 [facility] Comment on above: Performed By: #### L 500.4050, L501.9520, L100.0100 ####[facility] [address] [place], [address] RBC (Bld) [#/Vol] 3.39 10*6/uL Low 4.2-5.4 [facility] Comment on above: Performed By: #### L 500.4050, L501.9520, L100.0100 ####[facility] [address] [place], [address] RDW SD 54.0 fl High 35.1-43.9 [facility] Comment on above: Performed By: #### L 500.4050, L501.9520, L100.0100 ####[facility] [address] [place], [address] WBC (Bld) [#/Vol] 9.6 10*3/uL Normal 4.4-11.0 [facility] Comment on above: Performed By: #### L 500.4050, L501.9520, L100.0100 ####[facility] [address] [place], [address] Carbon dioxide, total [Moles /volume] in Central venous bloodOrdered By: Idalia Marti on 04-17-2025 CO2 [Moles/Vol] 22.7 mmol/L 21.0-32.0 [facility] Chloride assayOrdered By: Kat Marti on 04-17-2025 Chloride [Moles/Vol] 105 mmol/L 98-108 [facility] Comprehensive Metabolic Prof ilon 04-17-2025 Albumin [Mass/Vol] 3.2 g/dL Low 3.4-4.8 [facility] Comment on above: Performed By: #### L 500.4050, L501.9520, L100.0100 ####[facility] [address] [place], [address] Albumin/Globulin [Mass ratio] 1.1 {ratio} Normal 0.9-2.4 [facility] Comment on above: Performed By: #### L 500.4050, L501.9520, L100.0100 ####[facility] [address] [place], [address] ALK PHOS 165 U/L High 35-104 [facility] Comment on above: Performed By: #### L 500.4050, L501.9520, L100.0100 ####[facility] [address] [place], [address] ALT [Catalytic activity/Vol] 12 U/L Normal <=34 [facility] Comment on above: Performed By: #### L 500.4050, L501.9520, L100.0100 ####[facility] [address] [place], [address] AST [Catalytic activity/Vol] 27 U/L Normal <=31 [facility] Comment on above: Performed By: #### L 500.4050, L501.9520, L100.0100 ####[facility] [address] [place], [address] Bilirubin [Mass/Vol] 0.47 mg/dL Normal 0.00-1.30 [facility] Comment on above: Performed By: #### L 500.4050, L501.9520, L100.0100 ####[facility] [address] [place], [address] BUN/CRE 25.3 RATIO High 10-20 [facility] Comment on above: Performed By: #### L 500.4050, L501.9520, L100.0100 ####[facility] [address] [place], [address] Calcium [Mass/Vol] 9.3 mg/dL Normal 7.6-11.0 [facility] Comment on above: Performed By: #### L 500.4050, L501.9520, L100.0100 ####[facility] [address] [place], [address] Chloride [Moles/Vol] 105 mmol/L Normal 98-108 [facility] Comment on above: Performed By: #### L 500.4050, L501.9520, L100.0100 ####[facility] [address] [place], [address] CO2 [Moles/Vol] 22.7 mmol/L Normal 21.0-32.0 [facility] Comment on above: Performed By: #### L 500.4050, L501.9520, L100.0100 ####[facility] [address] [place], [address] Creatinine [Mass/Vol] 1.11 mg/dL Normal 0.70-1.20 [facility] Comment on above: Performed By: #### L 500.4050, L501.9520, L100.0100 ####[facility] [address] [place], [address] ECRCL 32.82 ml/min Low 50-250 [facility] Comment on above: Performed By: #### L 500.4050, L501.9520, L100.0100 ####[facility] [address] [place], [address] GAP 11 Normal 5-15 [facility] Comment on above: Performed By: #### L 500.4050, L501.9520, L100.0100 ####[facility] [address] [place], [address] GFR/1.73 sq M.predicted among non-blacks MDRD (S/P/Bld) [Vol rate/Area] 48 mL/min/{1.73_m2} Low >60 [facility] Comment on above: Result Comment: mL/m in/1.73m2 CKD-EPI Creatinine Equation (2020) Performed By: #### L 500.4050, L501.9520, L100.0100 ####[facility] [address] [place], [address] Globulin (S) [Mass/Vol] 3.0 g/dL Normal 2.2-4.2 [facility] Comment on above: Performed By: #### L 500.4050, L501.9520, L100.0100 ####[facility] [address] [place], [address] Glucose [Mass/Vol] 90 mg/dL Normal 70-99 [facility] Comment on above: Performed By: #### L 500.4050, L501.9520, L100.0100 ####[facility] [address] [place], [address] Potassium [Moles/Vol] 3.6 mmol/L Normal 3.3-5.1 [facility] Comment on above: Performed By: #### L 500.4050, L501.9520, L100.0100 ####[facility] [address] [place], [address] Sodium [Moles/Vol] 138 mmol/L Normal 133-145 [facility] Comment on above: Performed By: #### L 500.4050, L501.9520, L100.0100 ####[facility] [address] [place], [address] T PROT 6.2 g/dL Normal 5.9-8.4 [facility] Comment on above: Performed By: #### L 500.4050, L501.9520, L100.0100 ####[facility] [address] [place], [address] Urea nitrogen [Mass/Vol] 28 mg/dL High 4-19 [facility] Comment on above: Performed By: #### L 500.4050, L501.9520, L100.0100 ####[facility] [address] [place], [place], [id number] Eosinophil percentageOrdered By: [facility] Figueroa on 04-17-2025 Eosinophils/100 WBC (Bld) 3.2 % 0-5 [facility] Erythrocyte distribution wid th ratioOrdered By: [facility] White on 04-17-2025 Erythrocyte distribution width (RBC) [Ratio] 14.8 % High 11.6-14.6 [facility] Erythrocyte distribution wid th standard deviationOrdered By: [facility] White on 04-17-2025 Erythrocyte distribution width (RBC) [Ratio] 54.0 fl High 35.1-43.9 [facility] Glomerular filtration rate ( GFR) estimation/1.73 sq m using serum, plasma, or whole bOrdered By: [facility] Figueroa on 04-17-2025 GFR/1.73 sq M.predicted among non-blacks MDRD (S/P/Bld) [Vol rate/Area] 48 mL/min/{1.73_m2} Low >60 [facility] Comment on above: mL/min/1.73m2 CKD-EP I Creatinine Equation (2020) H AND P Exam - Hospitaliston 04-17-2025 H&P Exam - Hospitalist Normal [facility] Hematocrit Auto (Bld) [Volum e fraction]Ordered By: [facility] Figueroa on 04-17-2025 Hematocrit (Bld) [Volume fraction] 33.4 % Low 37-47 [facility] Hemoglobin measurementOrdere d By: Idalia Figueroa on 04-17-2025 Hemoglobin (Bld) [Mass/Vol] 10.7 g/dL Low 12.0-15.0 [facility] Immature granulocytes/100 WB C Auto (Bld)Ordered By: Idalia Marti on 04-17-2025 Immature granulocytes/100 WBC (Bld) 0.500 % 0.0-0.9 [facility] Comment on above: IG% - Immature Granu locytes (promyelocytes, myelocytes and metamyelocytes) > 1% indicates that a LEFT SHIFT is Present. Laboratory - Chemistry and C hemistry - challengeOrdered By: Idalia Marti on 04-17-2025 AST [Catalytic activity/Vol] 27 U/L <32 [facility] MCV (mean corpuscular volume ) determinationOrdered By: Idalia Marti on 04-17-2025 MCV (RBC) [Entitic vol] 98.5 fL 81-99 [facility] MR/CON.PCM.NEon 04-17-2025 MR/CON.PCM.NE Normal [facility] Magnesiumon 04-17-2025 Magnesium [Mass/Vol] 2.1 mg/dL Normal 1.5-2.2 [facility] Comment on above: Order Comment: Comme nts: may add to ED labs Performed By: #### L 501.5200 ####[facility] [address] [place], [place], [address] Magnetic resonance imaging r eportOrdered By: Dread Corbett on 04-17-2025 Study report [facility] Imaging Services [address] [place] [address] Brain without Contrast MR#: [id number] Acct: [id number] Name: GEOFFREY NASSAR Rep #: [id number] : [id number] From: Jesus Corbett MD PCP: Dr. Ken Whelan MD Status: A DM IN Study:Brain without Contrast Date of Exam: 04/17/25 Exam# [id number] Ordering Dr: Taco Rizvi MD PROCEDURE: BRAIN WITHOUT CONTRAST 04/17/2025 REASON FOR EXAM: SUDDEN LOSS OF CONSCIOUSNESS TECHNIQUE: BRAIN WITHOUT CONTRAST Multiplanar and multisequence images were obtained. COMPARISON: CT head April 16, 2025. 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 No hemorrhage. No mass-effect or midline shift. No restricted diffusion to indicate infarction. A hyperintense signal on DWI with no corresponding hypointense signal on ADC map in the left occipital lobe which is artifactual. Ventricles: No ventriculomegaly. Major Intracranial Vessels: Patent. Sinuses: Clear. Mastoids: Clear. MRI/Brain without Contrast IMPRESSION: No acute brain abnormalities. Chronic changes which are nonspecific but most likely due to chronic small-vessel ischemia. Reading Location: [facility] CC: Dr. Sean Rizvi MD; Dr. Ken Whelan MD ~ Water Conservationist: Signed [facility] Mean corpuscular hemoglobin (MCH) determinationOrdered By: Figueroa on 04-17-2025 MCH (RBC) [Entitic mass] 31.6 pg 27.0-32.0 [facility] Mean corpuscular hemoglobin concentration (MCHC) determinationOrdered By: Figueroa on 04-17-2025 MCHC (RBC) [Mass/Vol] 32.0 g/dL 32-36 [facility] Mean platelet volume determi nationOrdered By: White on 04-17-2025 Platelet mean volume (Bld) [Entitic vol] 10.4 fL 6.2-12.0 [facility] Monocyte percentageOrdered B y: White on 04-17-2025 Monocytes/100 WBC (Bld) 11.3 % High 0-10 [facility] Neutrophil percentageOrdered By: White on 04-17-2025 Neutrophils/100 WBC (Bld) 61.0 % 47-70 [facility] Nucleated red blood cell per centageOrdered By: White on 04-17-2025 Nucleated RBC/100 WBC (Bld) [Ratio] 0 % 0-5 [facility] Pacemaker Checkon 04-17-2025 Pacemaker Check Normal [facility] Pacemaker Check Normal [facility] Platelet countOrdered By: Kat fletcher Figueroa on 04-17-2025 Platelets (Bld) [#/Vol] 245 10*3/uL 150-450 [facility] Potassium measurement (mass/ volume)Ordered By: Figueroa on 04-17-2025 Potassium (Unsp spec) [Mass/Vol] 3.6 mmol/L 3.3-5.1 [facility] RBC Auto (Bld) [#/Vol]Ordere d By: Idalia White on 04-17-2025 RBC (Bld) [#/Vol] 3.39 10*6/uL Low 4.2-5.4 [facility] Serum creatinine measurement (mass/volume)Ordered By: Idalia Marti on 04-17-2025 Creatinine [Mass/Vol] 1.11 mg/dL 0.70-1.20 [facility] Serum globulin measurementOr dered By: Idalia Marti on 04-17-2025 Globulin (S) [Mass/Vol] 3.0 g/dL 2.2-4.2 [facility] Serum glucose measurement (m ass/volume)Ordered By: Idalia Marti on 04-17-2025 Glucose [Mass/Vol] 90 mg/dL 70-99 [facility] Serum or plasma alanine roque otransferase (ALT) measurementOrdered By: Idalia Marti on 04-17-2025 ALT [Catalytic activity/Vol] 12 U/L <35 [facility] Serum or plasma albumin jose urement (mass/volume)Ordered By: Idalia Marti on 04-17-2025 Albumin [Mass/Vol] 3.2 g/dL Low 3.4-4.8 [facility] Serum or plasma albumin/glob ulin mass ratioOrdered By: Idalia Marti on 04-17-2025 Albumin/Globulin [Mass ratio] 1.1 {ratio} 0.9-2.4 [facility] Serum or plasma alkaline tashi sphatase measurementOrdered By: Idalia Marti on 04-17-2025 ALP [Catalytic activity/Vol] 165 U/L High 35-104 [facility] Serum or plasma calcium jose urement (mass/volume)Ordered By: Idalia Marti on 04-17-2025 Calcium [Mass/Vol] 9.3 mg/dL 7.6-11.0 [facility] Serum or plasma urea nitroge n measurement (mass/volume)Ordered By: Idalia Marti on 04-17-2025 Urea nitrogen [Mass/Vol] 28 mg/dL High 4-19 [facility] Sodium levelOrdered By: Autu cortez Marti on 04-17-2025 Sodium [Moles/Vol] 138 mmol/L 133-145 [facility] TSH DL <= 0.005 mIU/L QnOrde red By: Idalia Marti on 04-17-2025 TSH Qn 1.080 uIU/mL 0.300-4.200 [facility] Thyroid Stim Hormone (TSH)on 04-17-2025 TSH 1.080 uIU/mL Normal 0.300-4.200 [facility] Comment on above: Performed By: #### L 500.4050, L501.9520, L100.0100 ####[facility] [address] [place], [address] Total proteinOrdered By: Melisa spaulding White on 04-17-2025 Protein [Mass/Vol] 6.2 g/dL 5.9-8.4 [facility] White blood cell (WBC) count Ordered By: Idalia White on 04-17-2025 WBC (Bld) [#/Vol] 9.6 10*3/uL 4.4-11.0 [facility] Absolute lymphocyte countOrd ered By: Lucho Murdock on 04-16-2025 Lymphocytes Auto (Unsp spec) [#/Vol] 1.77 10*3/uL 0.83-4.51 [facility] Absolute neutrophil countOrd ered By: Lucho Murdock on 04-16-2025 Neutrophils (Bld) [#/Vol] 5.0 10*3/uL 2.0-7.7 [facility] Activated partial thrombopla stin time (aPTT) in platelet poor plasma by coagulation aOrdered By: Lucho Murdock on 04-16-2025 aPTT Coag (PPP) [Time] 27.1 s 24.1-36.2 [facility] Anion gap in Serum or Plasma Ordered By: Lucho Murdock on 04-16-2025 Anion gap [Moles/Vol] 10 mmol/L 5-15 [facility] Automated lymphocyte count a s percentage of total leukocytesOrdered By: Lucho Murdock on 04-16-2025 Lymphocytes/100 WBC Auto (Unsp spec) 22.0 % 19-41 [facility] BUN/creatinine ratioOrdered By: Lucho Murdock on 04-16-2025 Urea nitrogen/Creatinine [Mass ratio] 24.6 mg/mg High 10- [facility] Basic Metabolic Profile (BMP )on 04-16-2025 BUN/CRE 24.6 RATIO High 06-26 [facility] Comment on above: Performed By: #### L 300.4310, L300.3900, L500.2500, L100.0100 ####[facility] [address] [place], [address] Calcium [Mass/Vol] 9.4 mg/dL Normal 7.6-11.0 [facility] Comment on above: Performed By: #### L 300.4310, L300.3900, L500.2500, L100.0100 ####[facility] [address] [place], [address] Chloride [Moles/Vol] 107 mmol/L Normal 98-108 [facility] Comment on above: Performed By: #### L 300.4310, L300.3900, L500.2500, L100.0100 ####[facility] [address] [place], [address] CO2 [Moles/Vol] 23.9 mmol/L Normal 21.0-32.0 [facility] Comment on above: Performed By: #### L 300.4310, L300.3900, L500.2500, L100.0100 ####[facility] [address] [place], [address] Creatinine [Mass/Vol] 1.40 mg/dL High 0.70-1.20 [facility] Comment on above: Performed By: #### L 300.4310, L300.3900, L500.2500, L100.0100 ####[facility] [address] [place], [address] ECRCL 25.67 ml/min Low 50-250 [facility] Comment on above: Performed By: #### L 300.4310, L300.3900, L500.2500, L100.0100 ####[facility] [address] [place], [address] GAP 10 Normal 5-15 [facility] Comment on above: Performed By: #### L 300.4310, L300.3900, L500.2500, L100.0100 ####[facility] [address] [place], [address] GFR/1.73 sq M.predicted among non-blacks MDRD (S/P/Bld) [Vol rate/Area] 36 mL/min/{1.73_m2} Low >60 [facility] Comment on above: Result Comment: mL/m in/1.73m2 CKD-EPI Creatinine Equation (2020) Performed By: #### L 300.4310, L300.3900, L500.2500, L100.0100 ####[facility] [address] [place], [address] Glucose [Mass/Vol] 103 mg/dL High 70-99 [facility] Comment on above: Performed By: #### L 300.4310, L300.3900, L500.2500, L100.0100 ####[facility] [address] [place], [address] Potassium [Moles/Vol] 4.1 mmol/L Normal 3.3-5.1 [facility] Comment on above: Performed By: #### L 300.4310, L300.3900, L500.2500, L100.0100 ####[facility] [address] [place], [address] Sodium [Moles/Vol] 141 mmol/L Normal 133-145 [facility] Comment on above: Performed By: #### L 300.4310, L300.3900, L500.2500, L100.0100 ####[facility] [address] [place], [address] Urea nitrogen [Mass/Vol] 35 mg/dL High 4-19 [facility] Comment on above: Performed By: #### L 300.4310, L300.3900, L500.2500, L100.0100 ####[facility] [address] [place], [address] Basophil percentageOrdered B y: Lucho Murdock on 04-16-2025 Basophils/100 WBC (Bld) 0.6 % 0-1 [facility] Bilirubin Test strip Ql (U)O rdered By: Lucho Murdock on 04-16-2025 Bilirubin Ql (U) Negative Negative [facility] Brain/Head without Contrasto n 04-16-2025 Brain/Head without Contrast Normal [facility] CBC W/Diff, Automatedon 04-07 0-2024 Absolute Lymph 1.77 X10 3/uL Normal 0.83-4.51 [facility] Comment on above: Performed By: #### L 300.4310, L300.3900, L500.2500, L100.0100 ####[facility] [address] [place], [address] Absolute Neut 5.0 X10 3/uL Normal 2.0-7.7 [facility] Comment on above: Performed By: #### L 300.4310, L300.3900, L500.2500, L100.0100 ####[facility] [address] [place], [address] Basophils/100 WBC (Bld) 0.6 % Normal 0-1 [facility] Comment on above: Performed By: #### L 300.4310, L300.3900, L500.2500, L100.0100 ####[facility] [address] [place], [address] Eosinophils/100 WBC (Bld) 2.9 % Normal 0-5 [facility] Comment on above: Performed By: #### L 300.4310, L300.3900, L500.2500, L100.0100 ####[facility] [address] [place], [address] Erythrocyte distribution width (RBC) [Ratio] 14.9 % High 11.6-14.6 [facility] Comment on above: Performed By: #### L 300.4310, L300.3900, L500.2500, L100.0100 ####[facility] [address] [place], [address] Hematocrit (Bld) [Volume fraction] 33.6 % Low 37-47 [facility] Comment on above: Performed By: #### L 300.4310, L300.3900, L500.2500, L100.0100 ####[facility] [address] [place], [address] Hemoglobin (Bld) [Mass/Vol] 10.5 g/dL Low 12.0-15.0 [facility] Comment on above: Performed By: #### L 300.4310, L300.3900, L500.2500, L100.0100 ####[facility] [address] [place], [address] IG% 0.900 Normal 0.0-0.9 [facility] Comment on above: Result Comment: IG% - Immature Granulocytes (promyelocytes, myelocytes andmetamyelocytes) > 1% indicates that a LEFT SHIFT is Present. Performed By: #### L 300.4310, L300.3900, L500.2500, L100.0100 ####[facility] [address] [place], [address] Lymphocytes/100 WBC (Bld) 22.0 % Normal 19-41 [facility] Comment on above: Performed By: #### L 300.4310, L300.3900, L500.2500, L100.0100 ####[facility] [address] [place], [address] MCH (RBC) [Entitic mass] 31.1 pg Normal 27.0-32.0 [facility] Comment on above: Performed By: #### L 300.4310, L300.3900, L500.2500, L100.0100 ####[facility] [address] [place], [address] MCHC (RBC) [Mass/Vol] 31.3 g/dL Low 32-36 [facility] Comment on above: Performed By: #### L 300.4310, L300.3900, L500.2500, L100.0100 ####[facility] [address] [place], [address] MCV (RBC) [Entitic vol] 99.4 fL High 81-99 [facility] Comment on above: Performed By: #### L 300.4310, L300.3900, L500.2500, L100.0100 ####[facility] [address] [place], [address] Monocytes/100 WBC (Bld) 11.1 % High 0-10 [facility] Comment on above: Performed By: #### L 300.4310, L300.3900, L500.2500, L100.0100 ####[facility] [address] [place], [address] Neutrophils/100 WBC (Bld) 62.5 % Normal 47-70 [facility] Comment on above: Performed By: #### L 300.4310, L300.3900, L500.2500, L100.0100 ####[facility] [address] [place], [address] Nucleated RBC (Bld) [#/Vol] 0 10*3/uL Normal 0-5 [facility] Comment on above: Performed By: #### L 300.4310, L300.3900, L500.2500, L100.0100 ####[facility] [address] [place], [address] Platelet mean volume (Bld) [Entitic vol] 10.2 fL Normal 6.2-12.0 [facility] Comment on above: Performed By: #### L 300.4310, L300.3900, L500.2500, L100.0100 ####[facility] [address] [place], [address] Platelets (Bld) [#/Vol] 232 10*3/uL Normal 150-450 [facility] Comment on above: Performed By: #### L 300.4310, L300.3900, L500.2500, L100.0100 ####[facility] [address] [place], [address] RBC (Bld) [#/Vol] 3.38 10*6/uL Low 4.2-5.4 [facility] Comment on above: Performed By: #### L 300.4310, L300.3900, L500.2500, L100.0100 ####[facility] [address] [place], [address] RDW SD 54.9 fl High 35.1-43.9 [facility] Comment on above: Performed By: #### L 300.4310, L300.3900, L500.2500, L100.0100 ####[facility] [address] [place], [address] WBC (Bld) [#/Vol] 8.1 10*3/uL Normal 4.4-11.0 [facility] Comment on above: Performed By: #### L 300.4310, L300.3900, L500.2500, L100.0100 ####[facility] [address] [place], [address] Carbon dioxide, total [Moles /volume] in Central venous bloodOrdered By: Lucho Murdock on 04-16-2025 CO2 [Moles/Vol] 23.9 mmol/L 21.0-32.0 [facility] Chloride assayOrdered By: Juan Carlos Murdock on 04-16-2025 Chloride [Moles/Vol] 107 mmol/L 98-108 [facility] Summary on 04-16-2025 Emergency Department Summary Normal [facility] Eosinophil percentageOrdered By: Lucho Murdock on 04-16-2025 Eosinophils/100 WBC (Bld) 2.9 % 0-5 [facility] Erythrocyte distribution wid th ratioOrdered By: Lucho Murdock on 04-16-2025 Erythrocyte distribution width (RBC) [Ratio] 14.9 % High 11.6-14.6 [facility] Erythrocyte distribution wid th standard deviationOrdered By: Lucho Murdock on 04-16-2025 Erythrocyte distribution width (RBC) [Ratio] 54.9 fl High 35.1-43.9 [facility] Glomerular filtration rate ( GFR) estimation/1.73 sq m using serum, plasma, or whole bOrdered By: Lucho Murdock on 04-16-2025 GFR/1.73 sq M.predicted among non-blacks MDRD (S/P/Bld) [Vol rate/Area] 36 mL/min/{1.73_m2} Low >60 [facility] Comment on above: mL/min/1.73m2 CKD-EP I Creatinine Equation (2020) Hematocrit Auto (Bld) [Volum e fraction]Ordered By: Lucho Murdock on 04-16-2025 Hematocrit (Bld) [Volume fraction] 33.6 % Low 37-47 [facility] Hemoglobin measurementOrdere d By: Lucho Murdock on 04-16-2025 Hemoglobin (Bld) [Mass/Vol] 10.5 g/dL Low 12.0-15.0 [facility] Immature granulocytes/100 WB C Auto (Bld)Ordered By: Lucho Murdock 04-16-2025 Immature granulocytes/100 WBC (Bld) 0.900 % 0.0-0.9 [facility] Comment on above: IG% - Immature Granu locytes (promyelocytes, myelocytes and metamyelocytes) > 1% indicates that a LEFT SHIFT is Present. International normalized rat io (INR) calculationOrdered By: Lucho Murdock on 04-16-2025 INR Coag (Bld) [Relative time] 1.0 {INR} [facility] Ketones Test strip Ql (U)Ord ered By: Lucho Murdock 04-16-2025 Ketones Ql (U) Negative Negative [facility] MCV (mean corpuscular volume ) determinationOrdered By: Lucho Murdock on 04-16-2025 MCV (RBC) [Entitic vol] 99.4 fL High 81-99 [facility] Magnesium measurement (mass/ volume)Ordered By: Idalia Marti on 04-16-2025 Magnesium (Unsp spec) [Mass/Vol] 2.1 mg/dL 1.5-2.2 [facility] Mean corpuscular hemoglobin (MCH) determinationOrdered By: Lucho Murdock on 04-16-2025 MCH (RBC) [Entitic mass] 31.1 pg 27.0-32.0 [facility] Mean corpuscular hemoglobin concentration (MCHC) determinationOrdered By: Lucho Murdock on 04-16-2025 MCHC (RBC) [Mass/Vol] 31.3 g/dL Low 32-36 [facility] Mean platelet volume determi nationOrdered By: Lucho Murdock on 04-16-2025 Platelet mean volume (Bld) [Entitic vol] 10.2 fL 6.2-12.0 [facility] Microscopic analysis of urin e for red blood cells (RBC)Ordered By: Lucho Murdock on 04-16-2025 Microscopic analysis of urine for red blood cells (RBC) 0-5 SEEN /hpf 0- [facility] Monocyte percentageOrdered B y: Lucho Murdock on 04-16-2025 Monocytes/100 WBC (Bld) 11.1 % High 0-10 [facility] Mucus LM Ql (Urine sed)Order ed By: Lucho Murdock on 04-16-2025 Mucus Ql (Urine sed) 0 SEEN /hpf [facility] Neutrophil percentageOrdered By: Lucho Murdock on 04-16-2025 Neutrophils/100 WBC (Bld) 62.5 % 47-70 [facility] Nitrite Test strip Ql (U)Ord ered By: Lucho Murdock on 04-16-2025 Nitrite Ql (U) Negative Negative [facility] Nucleated red blood cell per centageOrdered By: Lucho Murdock on 04-16-2025 Nucleated RBC/100 WBC (Bld) [Ratio] 0 % 0-5 [facility] Partial Thromboplast Timeon 04-16-2025 aPTT Coag (Bld) [Time] 27.1 s Normal 24.1-36.2 [facility] Comment on above: Performed By: #### L 300.4310, L300.3900, L500.2500, L100.0100 ####[facility] [address] [place], [address] Platelet countOrdered By: Juan Carlos Murdock on 04-16-2025 Platelets (Bld) [#/Vol] 232 10*3/uL 150-450 [facility] Potassium measurement (mass/ volume)Ordered By: Lucho Murdock on 04-16-2025 Potassium (Unsp spec) [Mass/Vol] 4.1 mmol/L 3.3-5.1 [facility] Protein Test strip Ql (U)Ord ered By: Lucho Murdock on 04-16-2025 Protein Ql (U) Negative Negative [facility] Prothrombin Time w/INRon INR Coag (PPP) [Relative time] 1.0 {INR} Normal [facility] Comment on above: Performed By: #### L 300.4310, L300.3900, L500.2500, L100.0100 ####[facility] [address] [place], [address] PT Coag (PPP) [Time] 13.4 s Normal 11.7-14.9 [facility] Comment on above: Performed By: #### L 300.4310, L300.3900, L500.2500, L100.0100 ####[facility] [address] [place], [address] Prothrombin timeOrdered By: Lucho Murdock on 04-16-2025 PT Coag (PPP) [Time] 13.4 s 11.7-14.9 [facility] RBC Auto (Bld) [#/Vol]Ordere d By: Lucho Murdcok on 04-16-2025 RBC (Bld) [#/Vol] 3.38 10*6/uL Low 4.2-5.4 [facility] Serum creatinine measurement (mass/volume)Ordered By: Lucho Murdock on 04-16-2025 Creatinine [Mass/Vol] 1.40 mg/dL High 0.70-1.20 [facility] Serum glucose measurement (m ass/volume)Ordered By: Lucho Murdock on 04-16-2025 Glucose [Mass/Vol] 103 mg/dL High 70-99 [facility] Serum or plasma calcium jose urement (mass/volume)Ordered By: Lucho Murdock on 04-16-2025 Calcium [Mass/Vol] 9.4 mg/dL 7.6-11.0 [facility] Serum or plasma urea nitroge n measurement (mass/volume)Ordered By: Lucho Murdock on 04-16-2025 Urea nitrogen [Mass/Vol] 35 mg/dL High 4-19 [facility] Sodium levelOrdered By: Lucho Murdock on 04-16-2025 Sodium [Moles/Vol] 141 mmol/L 133-145 [facility] Squamous epithelial cells de tection in urine sediment by light microscopyOrdered By: Lucho Murdock on 04-16-2025 Epithelial cells.squamous LM Ql (Urine sed) 0-5 SEEN /hpf - [facility] Urinalysis, Completeon 04-16 BACTERIA RARE Normal None Seen [facility] Comment on above: Order Comment: CLEAN CATCH Performed By: #### L 400.0001 ####[facility] [address] [place], [address] EPI,SQUAMOUS 0-5 SEEN Normal - [facility] Comment on above: Order Comment: CLEAN CATCH Performed By: #### L 400.0001 ####[facility] [address] [place], [address] RBC 0-5 SEEN Normal 0-5 [facility] Comment on above: Order Comment: CLEAN CATCH Performed By: #### L 400.0001 ####[facility] [address] [place], [address] WBC 0-5 SEEN Normal 0-5 [facility] Comment on above: Order Comment: CLEAN CATCH Performed By: #### L 400.0001 ####[facility] [address] [place], [address] Mucus Ql (Urine sed) 0 SEEN Normal [facility] Comment on above: Order Comment: CLEAN CATCH Performed By: #### L 400.0001 ####[facility] [address] [place], [address] Urine clarityOrdered By: Criselda Murdock on 04-16-2025 Clarity (U) Clear Clear [facility] Urine color determinationOrd ered By: Lucho Murdock on 04-16-2025 Color (U) Yellow Yellow [facility] Urine glucose detectionOrder ed By: Lucho Murdock on 04-16-2025 Glucose Ql (U) Normal mg/dl Normal [facility] Urine leukocyte esterase det ection by dipstickOrdered By: Lucho Murdock on 04-16-2025 Leukocyte esterase Test strip Ql (U) Negative Negative [facility] Urine pHOrdered By: Lucho ernandez on 04-16-2025 pH (U) 6.5 [pH] 5.0 - 8.0 [facility] Urine sediment bacteria coun t by microscopy (number/high power field)Ordered By: Lucho Murdock on 04-16-2025 Bacteria LM.HPF (Urine sed) [#/Area] RARE /hpf None Seen [facility] Urine specific gravity measu rementOrdered By: Lucho Murdock on 04-16-2025 Specific gravity (U) [Rel density] 1.010 1.002-1.030 [facility] Urine urobilinogen measureme ntOrdered By: Lucho Murdock on 04-16-2025 Urobilinogen Ql (U) Normal mg/dl Normal [facility] White blood cell (WBC) count Ordered By: Lucho Murdock on 04-16-2025 WBC (Bld) [#/Vol] 8.1 10*3/uL 4.4-11.0 [facility] White blood cell countOrdere d By: Lucho Murdock on 04-16-2025 White blood cell count 0-5 SEEN /hpf 0-5 [facility] CNPNon 04-14-2025 CNPN Normal [facility] CNOVon 04-11-2025 CNOV Normal [facility] CNOVon 04-07-2025 CNOV Normal [facility] Cardiology Visit Reporton Cardiology Visit Report Normal [facility] CNOVon 03-28-2025 CNOV Normal [facility] CNPNon 03-28-2025 CNPN Normal [facility] XR CHEST 2V FRONTAL/LATon XR CHEST 2V FRONTAL/LAT Normal [facility] XR Chest PA and Lateralon IMPRESSION: No acute radiographic abnormality. Water Conservationist: PSCB Transcribe Date/Time: Mar 28 2025 6:08P Dictated by : KRISTEN ABREU MD This examination was interpreted and the report reviewed and electronically signed by: KRISTEN ABREU MD on Mar 28 2025 6:10PM [facility] DIVISION OF RADIOLOGY * * *Final [...] the thoracic spine. DIVISION OF RADIOLOGY Provider, [facility]28/[facility]25 * * *Final Report* * [...] spine. IMPRESSION IMPRESSION: No acute radiographic abnormality. Water Conservationist: PSCB Transcribe Date/Time: Mar 28 2025 6:08P Dictated by : KRISTEN ABREU MD This examination was interpreted and the report reviewed and electronically signed by: KRISTEN ABREU MD on Mar 28 2025 6:10PM EST [facility] Radiology Study observation (narrative) [facility] XR Chest PA and LateralOrder ed By: [facility]cf Provider on 03-28-2025 [facility] CNOVon 03-23-2025 CNOV Normal [facility] CNPNon 03-17-2025 CNPN Normal [facility] Cardiovascular stress test r eportOrdered By: Zane Mcpherson on 03-08-2025 Study report [facility] [address] [place] [address] MR#: [id number] Acct: [id number] Name: GEOFFREY NASSAR Rep #: [id number] : 1935 89 From: Zane Mcpherson MD Primary Care: Dr. Ken Whelan MD St at[facility]: REG CLI Referring Dr: Ken Whelan MD Sex: F C Stress Test Report [...] stress test. Preserved ejection fraction. 03/08/251720 Date _ Zane Mcpherson MD CC: Dr. Ken Whelan MD ~ Date Dictated: 03/08/251718 Date Transcribed: 03/08/251718 Water Conservationist: [place] Signed [facility] Work Phone: Stress Reporton 03-08-2025 Stress Report Normal [facility] CNOVon 03-02-2025 CNOV Normal [facility] Brain/Head without Contrasto n 02-15-2025 Brain/Head without Contrast Normal [facility] Emergency Department Summary on 02-15-2025 Emergency Department Summary Normal [facility] Lumbar Spine 2 or 3 Viewson 02-15-2025 Lumbar Spine 2 or 3 Views Normal [facility] Spine Cervical without Contr ason 02-15-2025 Spine Cervical without Contras Normal [facility] CNPNon 02-06-2025 CNPN Normal [facility] CNPNon 02-03-2025 CNPN Normal [facility] LUNG VOLUMESon 02-03-2025 LUNG VOLUMES Normal [facility] SPIROMETRY - BASELINE AND PO ST DILATORon 02-03-2025 SPIROMETRY - BASELINE AND POST DILATOR Normal [facility] CNOVon 02-02-2025 CNOV Normal [facility] 25(OH)D3 SerPl-[facility] 2024 25-hydroxyvitamin D3 [Mass/Vol] 50.5 ng/mL Normal 31.0-80.0 [facility] Comment on above: Order Comment: Speci men Type: BLOOD SPECIMENOrdering Facility: [facility] Address: [address] [place] [address] Result Comment: Clas sification of 25 [place] Vitamin D status:Deficiency/Insufficiency: < or = 30 ng/ml.Sufficiency/Optimal Levels: 31-80 ng/mLToxicity: > 100 ng/mL.Test performed by chemiluminescent immunoassay. Performed By: #### 1 989-3 ####[facility] LABCLIA [id number] [place] [address] [place] Basic metabolic 2000 panelon 01-26-2025 Anion gap [Moles/Vol] 12 mmol/L Normal 8-15 [facility] Comment on above: Order Comment: Speci men Type: BLOOD SPECIMENOrdering Facility: [facility] Address: [address] [place] [address] Performed By: #### 2 4321-2 ####[facility] [id number] [place] [address] [place] Calcium [Mass/Vol] 10.0 mg/dL Normal 8.5-10.2 [facility] Comment on above: Order Comment: Speci men Type: BLOOD SPECIMENOrdering Facility: [facility] Address: [address] [place] [address] Performed By: #### 2 4321-2 ####[facility]ITAL[facility]IA [id number] [place] [address] [place] Chloride [Moles/Vol] 104 mmol/L Normal 98-107 [facility] Comment on above: Order Comment: Speci men Type: BLOOD SPECIMENOrdering Facility: [facility] Address: [address] [place] [address] Performed By: #### 2 4321-2 ####[facility] FUADWNCLIA [id number] [place] [address] [place] CO2 [Moles/Vol] 23 mmol/L Normal 22-30 [facility] Comment on above: Order Comment: Speci men Type: BLOOD SPECIMENOrdering Facility: [facility] Address: [address] [place] [address] Performed By: #### 2 4321-2 ####[facility]CL[facility] [id number] [place] [address] [place] Creatinine [Mass/Vol] 1.44 mg/dL High 0.58-0.96 [facility] Comment on above: Order Comment: Speci men Type: BLOOD SPECIMENOrdering Facility: [facility] Address: [address] [place] [address] Performed By: #### 2 4321-2 ####[facility] [id number] [place] [address] [place] Creatinine and Glomerular filtration rate.predicted panel (S/P/Bld) 35 mL/min/1.73m??? Low >=60 [facility] Comment on above: Order Comment: Speci men Type: BLOOD SPECIMENOrdering Facility: [facility] Address: [address] [place] [address] Result Comment: Deidra mated Glomerular Filtration Rate [...] actual GFR. Performed By: #### 2 4321-2 ####[facility] VALLEYNCLIA [id number] [place] [address] [place] Glucose [Mass/Vol] 100 mg/dL High 74-99 [facility] Comment on above: Order Comment: Speci men Type: BLOOD SPECIMENOrdering Facility: [facility] Address: [address] [place] [address] Result Comment: The [place] [employer] (ADA) provides guidance for cutoff [...] Standards of Medical Care in Diabetes 2016, [place] [employer]. Diabetes Care. 2016.39(Suppl 1). Performed By: #### 2 4321-2 ####[facility] [id number] [place] [address] [place] Potassium [Moles/Vol] 4.2 mmol/L Normal 3.7-5.1 [facility] Comment on above: Order Comment: Jacob chavez Type: BLOOD SPECIMENOrdering Facility: [facility] Address: [address] [place], [place] [address] Performed By: #### 2 4321-2 ####[facility] [id number] [place] [address] [place] Sodium [Moles/Vol] 139 mmol/L Normal 136-144 [facility] Comment on above: Order Comment: Vini men Type: BLOOD SPECIMENOrdering Facility: [facility] Address: [address] [place] [address] Performed By: #### 2 4321-2 ####[facility] [id number] [place] [address] [place] Urea nitrogen [Mass/Vol] 45 mg/dL High 7-21 [facility] Comment on above: Order Comment: Speci men Type: BLOOD SPECIMENOrdering Facility: [facility] Address: [address] [place] [address] Performed By: #### 2 4321-2 ####[facility] [id number] [place] [address] [place] NT-proBNP SerPl-mCncon 01-26 Natriuretic peptide.B prohormone N-Terminal [Mass/Vol] 323 pg/mL Normal <450 [facility] Comment on above: Order Comment: Speci men Type: BLOOD SPECIMENOrdering Facility: [facility] Address: [address] [place] [address] Performed By: #### 3 3762-6, 3016-3 ####[facility] LABCLIA [id number] [place] [address] [place] TSH SerPl-aCncon 01-26-2025 TSH Qn 0.294 m[IU]/L Normal 0.270-4.200 [facility] Comment on above: Order Comment: Speci men Type: BLOOD SPECIMENOrdering Facility: [facility] Address: [address] [place] [address] Performed By: #### 3 3762-6, 3016-3 ####[facility] LABIA [id number] [place] [address] [place] CNOVon 01-25-2025 CNOV Normal [facility] XR CHEST 2V FRONTAL/LATon XR CHEST 2V FRONTAL/LAT Normal [facility] CNOVon 01-11-2025 CNOV Normal [facility] CNPTOUTREACHon 01-06-2025 CNPTOUTREACH Normal [facility] CNOVon 01-05-2025 CNOV Normal [facility] CNPTOUTREACHon 12-22-2024 CNPTOUTREACH Normal [facility] CNPNon 12-19-2024 CNPN Normal [facility] CNOVon 12-16-2024 CNOV Normal [facility] 25(OH)D3 [facility] 20[facility] 25-hydroxyvitamin D3 [Mass/Vol] 75.9 ng/mL Normal 31.0-80.0 [facility] Comment on above: Order Comment: Speci men Type: BLOOD SPECIMENOrdering Facility: [facility] Address: [address] [place] [address] Result Comment: Clas sification of 25 [place] Vitamin D status:Deficiency/Insufficiency: < or = 30 ng/ml.Sufficiency/Optimal Levels: 31-80 ng/mLToxicity: > 100 ng/mL.Test performed by chemiluminescent immunoassay. Performed By: #### 1 989-3 ####[facility] LABIA [id number] [place] [address] [place] CNOVon 12-14-2024 CNOV Normal [facility] Ferritin [facility]-ncon 2024 Ferritin [Mass/Vol] 147.0 ng/mL Normal 14.7-205.1 [facility] Comment on above: Order Comment: Speci men Type: BLOOD SPECIMENOrdering Facility: [facility] Address: [address] [place] [address] Performed By: #### 2 276-4, 79080-7 ####[facility] LABIA [id number] [place] [address] [place] Iron and Iron binding capaci ty panelon 12-14-2024 Iron [Mass/Vol] 74 ug/dL Normal 41-186 [facility] Comment on above: Order Comment: Speci men Type: BLOOD SPECIMENOrdering Facility: [facility] Address: [address] [place] [address] Performed By: #### 2 276-4, 97311-1 ####[facility] LABIA [id number] [address] [place] Iron binding capacity [Mass/Vol] 305 ug/dL Normal 232-386 [facility] Comment on above: Order Comment: Speci men Type: BLOOD SPECIMENOrdering Facility: [facility] Address: [address] [place] [address] Performed By: #### 2 276-4, 74369-1 ####[facility] LABIA [id number] [place] [address] [place] Iron/TIBC [Molar ratio] 24.3 % Normal 15.0-57.0 [facility] Comment on above: Order Comment: Speci men Type: BLOOD SPECIMENOrdering Facility: [facility] Address: [address] [place] [address] Performed By: #### 2 276-4, 64281-2 ####[facility] LABIA [id number] [place] [id number] [place] CNPNon 12-13-2024 CNPN Normal [facility] CNPTOUTREACHon 12-07-2024 CNPTOUTREACH Normal [facility] CNPNon 12-01-2024 CNPN Normal [facility] CNPNon 11-29-2024 CNPN Normal [facility] CNOVon 11-24-2024 CNOV Normal [facility] XR HIP 3V PELV+ AP/LAT LTon 11-24-2024 XR HIP 3V PELV+ AP/LAT LT Normal [facility] CNPTOUTREACHon 11-23-2024 CNPTOUTREACH Normal [facility] Anion gap in Serum or Plasma Ordered By: Latonya Vargas on 11-11-2024 Anion gap [Moles/Vol] 10 mmol/L 01-19 [facility] BUN/creatinine ratioOrdered By: Latonya Vargas on 11-11-2024 Urea nitrogen/Creatinine [Mass ratio] 27.3 mg/mg High 06-26 [facility] Basic Metabolic Profile (BMP )on 11-11-2024 BUN/CRE 27.3 RATIO High 06-26 [facility] Comment on above: Order Comment: Pt wa nts to see if she needs KCL with Lasix Performed By: #### L 500.2500 ####[facility] [address] [place], [address] Calcium [Mass/Vol] 9.5 mg/dL Normal 7.6-11.0 [facility] Comment on above: Order Comment: Pt ms nts to see if she needs KCL with Lasix Performed By: #### L 500.2500 ####[facility] [address] [place], [address] Chloride [Moles/Vol] 101 mmol/L Normal 98-108 [facility] Comment on above: Order Comment: Pt ms nts to see if she needs KCL with Lasix Performed By: #### L 500.2500 ####[facility] [address] [place], [address] CO2 [Moles/Vol] 25.8 mmol/L Normal 21.0-32.0 [facility] Comment on above: Order Comment: Pt ms nts to see if she needs KCL with Lasix Performed By: #### L 500.2500 ####[facility] [address] [place], [address] Creatinine [Mass/Vol] 1.42 mg/dL High 0.70-1.20 [facility] Comment on above: Order Comment: Pt ms nts to see if she needs KCL with Lasix Performed By: #### L 500.2500 ####[facility] [address] [place], [address] GAP 10 Normal 5-15 [facility] Comment on above: Order Comment: Pt ms nts to see if she needs KCL with Lasix Performed By: #### L 500.2500 ####[facility] [address] [place], [address] GFR/1.73 sq M.predicted among non-blacks MDRD (S/P/Bld) [Vol rate/Area] 36 mL/min/{1.73_m2} Low >60 [facility] Comment on above: Order Comment: Pt ms nts to see if she needs KCL with Lasix Result Comment: mL/m in/1.73m2 CKD-EPI Creatinine Equation (2020) Performed By: #### L 500.2500 ####[facility] [address] [place], [address] Glucose [Mass/Vol] 85 mg/dL Normal 70-99 [facility] Comment on above: Order Comment: Pt ms nts to see if she needs KCL with Lasix Performed By: #### L 500.2500 ####[facility] [address] [place], [address] Potassium [Moles/Vol] 4.9 mmol/L Normal 3.3-5.1 [facility] Comment on above: Order Comment: Pt ms nts to see if she needs KCL with Lasix Performed By: #### L 500.2500 ####[facility] [address] [place], [address] Sodium [Moles/Vol] 137 mmol/L Normal 133-145 [facility] Comment on above: Order Comment: Pt ms nts to see if she needs KCL with Lasix Performed By: #### L 500.2500 ####[facility] [address] [place], [address] Urea nitrogen [Mass/Vol] 39 mg/dL High 4-19 [facility] Comment on above: Order Comment: Pt ms nts to see if she needs KCL with Lasix Performed By: #### L 500.2500 ####[facility] [address] [place], [address] Carbon dioxide, total [Moles /volume] in Central venous bloodOrdered By: Latoyna Vargas on 11-11-2024 CO2 [Moles/Vol] 25.8 mmol/L 21.0-32.0 [facility] Chloride assayOrdered By: Marilyn Vargas on 11-11-2024 Chloride [Moles/Vol] 101 mmol/L 98-108 [facility] GFR/1.73 sq M.predicted elissa g non-blacks MDRD (S/P/Bld) [Vol rate/Area]Ordered By: Latonya Vargas on 11-11-2024 Estimated GFR (MDRD) Non-Af Amer 36 Low >60 [facility] Comment on above: mL/min/1.73m2 CKD-EP I Creatinine Equation (2020) Glomerular filtration rate ( GFR) estimation/1.73 sq m using serum, plasma, or whole bOrdered By: Latonya Vargas on 11-11-2024 GFR/1.73 sq M.predicted among non-blacks MDRD (S/P/Bld) [Vol rate/Area] 36 mL/min/{1.73_m2} Low >60 [facility] Comment on above: mL/min/1.73m2 CKD-EP I Creatinine Equation (2020) Potassium (Unsp spec) [Mass/ Vol]Ordered By: Latonya Vargas on 11-11-2024 Potassium [Moles/Vol] 4.9 mmol/L 3.3-5.1 [facility] Potassium measurement (mass/ volume)Ordered By: Latonya Vargas on 11-11-2024 Potassium (Unsp spec) [Mass/Vol] 4.9 mmol/L 3.3-5.1 [facility] Serum creatinine measurement (mass/volume)Ordered By: Latonya Vargas on 11-11-2024 Creatinine [Mass/Vol] 1.42 mg/dL High 0.70-1.20 [facility] Serum glucose measurement (m ass/volume)Ordered By: Latonya Vargas on 11-11-2024 Glucose [Mass/Vol] 85 mg/dL 70-99 [facility] Serum or plasma calcium jose urement (mass/volume)Ordered By: Latonya Vargas on 11-11-2024 Calcium [Mass/Vol] 9.5 mg/dL 7.6-11.0 [facility] Serum or plasma urea nitroge n measurement (mass/volume)Ordered By: Latonya Vargas on 11-11-2024 Urea nitrogen [Mass/Vol] 39 mg/dL High 4-19 [facility] Sodium levelOrdered By: Yunier Vargas on 11-11-2024 Sodium [Moles/Vol] 137 mmol/L 133-145 [facility] CNPTOUTREACHon 11-09-2024 CNPTOUTREACH Normal [facility] CNOVon 10-20-2024 CNOV Normal [facility] Brain/Head without Contrasto n 10-12-2024 Brain/Head without Contrast Normal [facility] CNOVon 10-11-2024 CNOV Normal [facility] CNPNon 09-28-2024 CNPN Normal [facility] 12 Lead EKGon 09-05-2024 12 Lead EKG Normal [facility] Absolute neutrophil countOrd ered By: Patrice Brady on 09-05-2024 Neutrophils (Bld) [#/Vol] 5.4 10*3/uL 2.0-7.7 [facility] BNP (brain natriuretic pepti de measurement)Ordered By: Patrice Brady on 09-05-2024 Natriuretic peptide B (Bld) [Mass/Vol] 26.3 pg/mL 0-100 [facility] BNP,B-Type NATRIURETIC PEPTI Lukas 09-05-2024 Natriuretic peptide B (Bld) [Mass/Vol] 26.3 pg/mL Normal 0-100 [facility] Comment on above: Performed By: #### L 500.2500, L100.0100, L501.4020, L501.9520, L503.6620 ####[facility] [address] [place], [place], [id number] Basic Metabolic Profile (BMP )on 09-05-2024 BUN/CRE 28.8 RATIO High 10-20 [facility] Comment on above: Order Comment: 'TROP ' Serial specimen #1, #2 or #3: 1 Performed By: #### L 500.2500, L100.0100, L501.4020, L501.9520, L503.6620 ####[facility] [address] [place], [address] CA,Total 9.6 mg/dL Normal 8.5-10.1 [facility] Comment on above: Order Comment: 'TROP ' Serial specimen #1, #2 or #3: 1 Performed By: #### L 500.2500, L100.0100, L501.4020, L501.9520, L503.6620 ####[facility] [address] [place], [address] ECRCL 27.56 ml/min Normal [facility] Comment on above: Order Comment: 'TROP ' Serial specimen #1, #2 or #3: 1 Performed By: #### L 500.2500, L100.0100, L501.4020, L501.9520, L503.6620 ####[facility] [address] [place], [address] EST GFR - AA 46 mL/min Low >60 [facility] Comment on above: Order Comment: 'TROP ' Serial specimen #1, #2 or #3: 1 Result Comment: Afri can [place] GFR Calc Performed By: #### L 500.2500, L100.0100, L501.4020, L501.9520, L503.6620 ####[facility] [address] [place], [address] GAP 6 Normal 5-15 [facility] Comment on above: Order Comment: 'TROP ' Serial specimen #1, #2 or #3: 1 Performed By: #### L 500.2500, L100.0100, L501.4020, L501.9520, L503.6620 ####[facility] [address] [place], [address] GFR/1.73 sq M.predicted among non-blacks MDRD (S/P/Bld) [Vol rate/Area] 38 mL/min/{1.73_m2} Low >60 [facility] Comment on above: Order Comment: 'TROP ' Serial specimen #1, #2 or #3: 1 Result Comment: Non- GFR Calc Performed By: #### L 500.2500, L100.0100, L501.4020, L501.9520, L503.6620 ####[facility] [address] [place], [address] Basophil percentageOrdered B y: Patrice Brady on 09-05-2024 Basophils/100 WBC (Bld) 0.7 % 0-1 [facility] Blood urea nitrogen (BUN)/cr eatinine ratioOrdered By: Patrice Brady on 09-05-2024 Urea nitrogen/Creatinine [Mass ratio] 28.8 mg/mg High 10-20 [facility] CBC W/Diff, Automatedon 08-09 Absolute Lymph 2.37 X10 3/uL Normal 0.83-4.51 [facility] Comment on above: Performed By: #### L 500.2500, L100.0100, L501.4020, L501.9520, L503.6620 ####[facility] [address] [place], [address] Absolute Neut 5.4 X10 3/uL Normal 2.0-7.7 [facility] Comment on above: Performed By: #### L 500.2500, L100.0100, L501.4020, L501.9520, L503.6620 ####[facility] [address] [place], [address] Basophils/100 WBC (Bld) 0.7 % Normal 0-1 [facility] Comment on above: Performed By: #### L 500.2500, L100.0100, L501.4020, L501.9520, L503.6620 ####[facility] [address] [place], [address] Eosinophils/100 WBC (Bld) 3.3 % Normal 0-5 [facility] Comment on above: Performed By: #### L 500.2500, L100.0100, L501.4020, L501.9520, L503.6620 ####[facility] [address] [place], [address] Erythrocyte distribution width (RBC) [Ratio] 15.4 % High 11.6-14.6 [facility] Comment on above: Performed By: #### L 500.2500, L100.0100, L501.4020, L501.9520, L503.6620 ####[facility] [address] [place], [address] Hematocrit (Bld) [Volume fraction] 38.8 % Normal 37-47 [facility] Comment on above: Performed By: #### L 500.2500, L100.0100, L501.4020, L501.9520, L503.6620 ####[facility] [address] [place], [address] Hemoglobin (Bld) [Mass/Vol] 12.3 g/dL Normal 12.0-15.0 [facility] Comment on above: Performed By: #### L 500.2500, L100.0100, L501.4020, L501.9520, L503.6620 ####[facility] [address] [place], [address] IG% 0.400 Normal 0.0-0.9 [facility] Comment on above: Result Comment: IG% - Immature Granulocytes (promyelocytes, myelocytes andmetamyelocytes) > 1% indicates that a LEFT SHIFT is Present. Performed By: #### L 500.2500, L100.0100, L501.4020, L501.9520, L503.6620 ####[facility] [address] [place], [address] Lymphocytes/100 WBC (Bld) 26.0 % Normal 19-41 [facility] Comment on above: Performed By: #### L 500.2500, L100.0100, L501.4020, L501.9520, L503.6620 ####[facility] [address] [place], [address] MCH (RBC) [Entitic mass] 30.4 pg Normal 27.0-32.0 [facility] Comment on above: Performed By: #### L 500.2500, L100.0100, L501.4020, L501.9520, L503.6620 ####[facility] [address] [place], [address] MCHC (RBC) [Mass/Vol] 31.7 g/dL Low 32-36 [facility] Comment on above: Performed By: #### L 500.2500, L100.0100, L501.4020, L501.9520, L503.6620 ####[facility] [address] [place], [address] MCV (RBC) [Entitic vol] 95.8 fL Normal 81-99 [facility] Comment on above: Performed By: #### L 500.2500, L100.0100, L501.4020, L501.9520, L503.6620 ####[facility] [address] [place], [address] Monocytes/100 WBC (Bld) 10.6 % High 0-10 [facility] Comment on above: Performed By: #### L 500.2500, L100.0100, L501.4020, L501.9520, L503.6620 ####[facility] [address] [place], [address] Neutrophils/100 WBC (Bld) 59.0 % Normal 47-70 [facility] Comment on above: Performed By: #### L 500.2500, L100.0100, L501.4020, L501.9520, L503.6620 ####[facility] [address] [place], [address] Nucleated RBC (Bld) [#/Vol] 0 10*3/uL Normal 0-5 [facility] Comment on above: Performed By: #### L 500.2500, L100.0100, L501.4020, L501.9520, L503.6620 ####[facility] [address] [place], [address] Platelet mean volume (Bld) [Entitic vol] 9.8 fL Normal 6.2-12.0 [facility] Comment on above: Performed By: #### L 500.2500, L100.0100, L501.4020, L501.9520, L503.6620 ####[facility] [address] [place], [address] Platelets (Bld) [#/Vol] 259 10*3/uL Normal 150-450 [facility] Comment on above: Performed By: #### L 500.2500, L100.0100, L501.4020, L501.9520, L503.6620 ####[facility] [address] [place], [address] RBC (Bld) [#/Vol] 4.05 10*6/uL Low 4.2-5.4 [facility] Comment on above: Performed By: #### L 500.2500, L100.0100, L501.4020, L501.9520, L503.6620 ####[facility] [address] [place], [address] RDW SD 53.9 fl High 35.1-43.9 [facility] Comment on above: Performed By: #### L 500.2500, L100.0100, L501.4020, L501.9520, L503.6620 ####[facility] [address] [place], [address] WBC (Bld) [#/Vol] 9.1 10*3/uL Normal 4.4-11.0 [facility] Comment on above: Performed By: #### L 500.2500, L100.0100, L501.4020, L501.9520, L503.6620 ####[facility] [address] [place], [address] Carbon dioxide measurementOr dered By: Patrice Brady on 09-05-2024 CO2 [Moles/Vol] 29.0 mmol/L Normal 21.0-32.0 [facility] Comment on above: Order Comment: 'TROP ' Serial specimen #1, #2 or #3: 1 Performed By: #### L 500.2500, L100.0100, L501.4020, L501.9520, L503.6620 ####[facility] [address] [place], [address] Chest PA and Lateralon 09-05 Chest PA and Lateral Normal [facility] Chloride measurementOrdered By: Patrice Brady on 09-05-2024 Chloride [Moles/Vol] 104 mmol/L Normal 98-107 [facility] Comment on above: Order Comment: 'TROP ' Serial specimen #1, #2 or #3: 1 Performed By: #### L 500.2500, L100.0100, L501.4020, L501.9520, L503.6620 ####[facility] [address] [place], [place], [address] Emergency Department Summary on 09-05-2024 Emergency Department Summary Normal [facility] Eosinophil percentageOrdered By: Patrice Brady on 09-05-2024 Eosinophils/100 WBC (Bld) 3.3 % 0-5 [facility] Erythrocyte distribution wid th ratioOrdered By: Patrice Brady on 09-05-2024 Erythrocyte distribution width (RBC) [Ratio] 15.4 % High 11.6-14.6 [facility] Erythrocyte distribution wid th standard deviationOrdered By: Patrice Brady on 09-05-2024 Erythrocyte distribution width (RBC) [Entitic vol] 53.9 fL High 35.1-43.9 [facility] Estimated glomerular filtrat ion rate (GFR) AmericanOrdered By: Patrice Brady on 09-05-2024 Estimated GFR (MDRD) Amer 46 mL/min Low >60 [facility] Comment on above: GFR Calc Estimation of creatinine eric aranceOrdered By: Patrice Brady on 09-05-2024 Estimated Creatinine Clearance Calc 27.56 ml/min [facility] Glomerular filtration rate ( GFR) estimationOrdered By: Patrice Brady on 09-05-2024 Estimated GFR (MDRD) Non-Af Amer 38 mL/min Low >60 [facility] Comment on above: Non- GFR Calc Glucose measurementOrdered B y: Patrice Jose Antonio on 09-05-2024 Glucose [Mass/Vol] 99 mg/dL Normal 74-106 [facility] Comment on above: Order Comment: 'TROP ' Serial specimen #1, #2 or #3: 1 Performed By: #### L 500.2500, L100.0100, L501.4020, L501.9520, L503.6620 ####[facility] [address] [place], [place], [address] Hematocrit Auto (Bld) [Volum e fraction]Ordered By: Patricejuan carlos Brady on 09-05-2024 Hematocrit (Bld) [Volume fraction] 38.8 % 37-47 [facility] Hemoglobin measurementOrdere d By: Patrice Brady on 09-05-2024 Hemoglobin (Bld) [Mass/Vol] 12.3 g/dL 12.0-15.0 [facility] Immature granulocytes/100 WB C Auto (Bld)Ordered By: Patrice Brady on 09-05-2024 Immature granulocytes/100 WBC (Bld) 0.400 % 0.0-0.9 [facility] Comment on above: IG% - Immature Granu locytes (promyelocytes, myelocytes and metamyelocytes) > 1% indicates that a LEFT SHIFT is Present. Influenza virus A and B and SARS-CoV-2 (COVID-19) and Respiratory syncytial virus RNAOrdered By: Patrice Brady on 09-05-2024 SARS-CoV-2 (COVID-19) RNA AQUILINO+probe Ql (Unsp spec) [facility] L501.4020on 09-05-2024 TROPONIN-I HS 6 pg/mL Normal 3.0-54.0 [facility] Comment on above: Order Comment: 'TROP ' Serial specimen #1, #2 or #3: 1 Result Comment: Plea se Note: New Test Units and Gender Specific Reference Ranges. For more information see Policy Stat Procedure [place] High Sensitivity Troponin (TNIH) and attachments. Performed By: #### L 500.2500, L100.0100, L501.4020, L501.9520, L503.6620 ####[facility] [address] [place], [address] Lymphocytes Auto (Unsp spec) [#/Vol]Ordered By: Patrice Brady on 09-05-2024 Lymphocytes (Bld) [#/Vol] 2.37 10*3/uL 0.83-4.51 [facility] Lymphocytes/100 WBC Auto (Un sp spec)Ordered By: Patrice Brady on 09-05-2024 Lymphocytes/100 WBC (Bld) 26.0 % 19-41 [facility] M100.678on 09-05-2024 M100.678 Pending SARS-CoV-2 (COVID 19) Negative INFLUENZA A Negative INFLUENZA B Negative RSV PCR Negative Normal [facility] Comment on above: Performed By: #### M 100.678 ####[facility] [address] [place], [address] MCV (mean corpuscular volume ) determinationOrdered By: Patrice Brady on 09-05-2024 MCV (RBC) [Entitic vol] 95.8 fL 81-99 [facility] Mean corpuscular hemoglobin (MCH) determinationOrdered By: Patrice Brady on 09-05-2024 MCH (RBC) [Entitic mass] 30.4 pg 27.0-32.0 [facility] Mean corpuscular hemoglobin concentration (MCHC) determinationOrdered By: Patrice Brady on 09-05-2024 MCHC (RBC) [Mass/Vol] 31.7 g/dL Low 32-36 [facility] Mean platelet volume determi nationOrdered By: Patrice Brady on 09-05-2024 Platelet mean volume (Bld) [Entitic vol] 9.8 fL 6.2-12.0 [facility] Monocyte percentageOrdered B y: Patrice Brady on 09-05-2024 Monocytes/100 WBC (Bld) 10.6 % High 0-10 [facility] Neutrophil percentageOrdered By: Patrice Brady on 09-05-2024 Neutrophils/100 WBC (Bld) 59.0 % 47-70 [facility] Nucleated red blood cell per centageOrdered By: Patrice Brady on 09-05-2024 Nucleated RBC/100 WBC (Bld) [Ratio] 0 % 0-5 [facility] Platelet countOrdered By: Earl Brady on 09-05-2024 Platelets (Bld) [#/Vol] 259 10*3/uL 150-450 [facility] Potassium measurementOrdered By: Patrice Brady on 09-05-2024 Potassium [Moles/Vol] 4.0 mmol/L Normal 3.5-5.1 [facility] Comment on above: Order Comment: 'TROP ' Serial specimen #1, #2 or #3: 1 Performed By: #### L 500.2500, L100.0100, L501.4020, L501.9520, L503.6620 ####[facility] [address] [place], [address] RBC Auto (Bld) [#/Vol]Ordere d By: Patrice Brady on 09-05-2024 RBC (Bld) [#/Vol] 4.05 10*6/uL Low 4.2-5.4 [facility] Serum anion gap measurementO rdered By: Patrice Brady on 09-05-2024 Anion gap [Moles/Vol] 6 mmol/L 5-15 [facility] Serum or plasma calcium jose urement (mass/volume)Ordered By: Patrice Brady on 09-05-2024 Calcium [Mass/Vol] 9.6 mg/dL 8.5-10.1 [facility] Serum or plasma creatinine m easurement (mass/volume)Ordered By: Patrice Brady on 09-05-2024 Creatinine [Mass/Vol] 1.39 mg/dL High 0.55-1.02 [facility] Comment on above: The validity of the calculated GFR & GFRAA in patients over 70 years has not been determined. Clinical correlation is essential. Order Comment: 'TROP ' Serial specimen #1, #2 or #3: 1 Result Comment: The validity of the calculated GFR GFRAA in patients over70 years has not been determined. Clinical correlation isessential. Performed By: #### L 500.2500, L100.0100, L501.4020, L501.9520, L503.6620 ####[facility] [address] [place], [address] Serum or plasma urea nitroge n measurement (mass/volume)Ordered By: Patrice Brady on 09-05-2024 Urea nitrogen [Mass/Vol] 40 mg/dL High 7-18 [facility] Comment on above: Order Comment: 'TROP ' Serial specimen #1, #2 or #3: 1 Performed By: #### L 500.2500, L100.0100, L501.4020, L501.9520, L503.6620 ####[facility] [address] [place], [address] Sodium levelOrdered By: Bib Brady on 09-05-2024 Sodium [Moles/Vol] 139 mmol/L Normal 136-145 [facility] Comment on above: Order Comment: 'TROP ' Serial specimen #1, #2 or #3: 1 Performed By: #### L 500.2500, L100.0100, L501.4020, L501.9520, L503.6620 ####[facility] [address] [place], [address] TSH QnOrdered By: Patrice rangel on 09-05-2024 Thyroid Stimulating Hormone (TSH) 0.438 uIU/mL 0.358-3.740 [facility] Thyroid Stim Hormone (TSH)on 09-05-2024 TSH 0.438 uIU/mL Normal 0.358-3.740 [facility] Comment on above: Order Comment: 'TROP ' Serial specimen #1, #2 or #3: 1 Performed By: #### L 500.2500, L100.0100, L501.4020, L501.9520, L503.6620 ####[facility] [address] [place], [place], [id number] Troponin IOrdered By: Patrice Brady on 09-05-2024 Troponin I High Sensitivity 6 pg/mL 3.0-54.0 [facility] Comment on above: Please Note: New Tiara t Units and Gender Specific Reference Ranges. For more information see Policy Stat Procedure [place] High Sensitivity Troponin (TNIH) and attachments. White blood cell (WBC) count Ordered By: Patrice Brady on 09-05-2024 WBC (Bld) [#/Vol] 9.1 10*3/uL 4.4-11.0 [facility] CNPNon 08-11-2024 CNPN Normal [facility] Brain/Head without Contrasto n 08-08-2024 Brain/Head without Contrast Normal [facility] CNPNon 08-08-2024 CNPN Normal [facility] Emergency Department Summary on 08-08-2024 Emergency Department Summary Normal [facility] Ribs Uni Min 3V w/PA Cheston 08-08-2024 Ribs Uni Min 3V w/PA Chest Normal [facility] CNOVon 07-08-2024 CNOV Normal [facility] CNOVon 07-06-2024 CNOV Normal [facility] BNP,B-Type NATRIURETIC PEPTI Lukas 07-01-2024 Natriuretic peptide B (Bld) [Mass/Vol] 103.7 pg/mL High 0-100 [facility] Comment on above: Performed By: #### L 503.6620, L500.2500 ####[facility] [address] [place], [address] Basic Metabolic Profile (BMP )on 07-01-2024 BUN/CRE 29.1 RATIO High 10-20 [facility] Comment on above: Performed By: #### L 503.6620, L500.2500 ####[facility] [address] [place], [place], [id number] CA,Total 9.7 mg/dL Normal 8.5-10.1 [facility] Comment on above: Performed By: #### L 503.6620, L500.2500 ####[facility] [address] [place], [address] Chloride [Moles/Vol] 107 mmol/L Normal 98-107 [facility] Comment on above: Performed By: #### L 503.6620, L500.2500 ####[facility] [address] [place], [address] CO2 [Moles/Vol] 28.0 mmol/L Normal 21.0-32.0 [facility] Comment on above: Performed By: #### L 503.6620, L500.2500 ####[facility] [address] [place], [address] Creatinine [Mass/Vol] 1.00 mg/dL Normal 0.55-1.02 [facility] Comment on above: Result Comment: The validity of the calculated GFR GFRAA in patients over70 years has not been determined. Clinical correlation isessential. Performed By: #### L 503.6620, L500.2500 ####[facility] [address] [place], [address] EST GFR - AA 68 mL/min Normal >60 [facility] Comment on above: Result Comment: Afri can [place] GFR Calc Performed By: #### L 503.6620, L500.2500 ####[facility] [address] [place], [address] GAP 2 Low 5-15 [facility] Comment on above: Performed By: #### L 503.6620, L500.2500 ####[facility] [address] [place], [address] GFR/1.73 sq M.predicted among non-blacks MDRD (S/P/Bld) [Vol rate/Area] 56 mL/min/{1.73_m2} Low >60 [facility] Comment on above: Result Comment: Non- GFR Calc Performed By: #### L 503.6620, L500.2500 ####[facility] [address] [place], [address] Glucose [Mass/Vol] 91 mg/dL Normal 74-106 [facility] Comment on above: Performed By: #### L 503.6620, L500.2500 ####[facility] [address] [place], [address] Potassium [Moles/Vol] 5.0 mmol/L Normal 3.5-5.1 [facility] Comment on above: Performed By: #### L 503.6620, L500.2500 ####[facility] [address] [place], [address] Sodium [Moles/Vol] 137 mmol/L Normal 136-145 [facility] Comment on above: Performed By: #### L 503.6620, L500.2500 ####[facility] [address] [place], [address] Urea nitrogen [Mass/Vol] 29 mg/dL High 7-18 [facility] Comment on above: Performed By: #### L 503.6620, L500.2500 ####[facility] [address] [place], [address] Cardiology Visit Reporton Cardiology Visit Report Normal [facility] 06-24-2024 [facility] Normal [facility] 06-06-2024 BERTHA Telephone (HILDA) -- GEOFFREY NASSAR ([id number]) 1935 F [place] Date Time Provider Department 06/06/24 KAYA MOON JR During your visit today, we recorded the following information about you: Laurence Torres LPN 06/06/2024 10:36 AM Signed Pt called in and has not heard anything regarding testing to be done at [facility] for a Polysomnogram. I have re-faxed orders, face sheet and supporting information to [phone]. I have asked the department to call pt to schedule. Pt aware if she does not hear from [facility] to call the department to schedule procedure. [...] ANTIBIOTICS) 12/15/2011 8 - GI Upset SYMBICORT (BUDESONIDE-FORMOTEROL) 11/27/2009 5 - Intolerance Comments: tremor,shaky TETANUS TOXOID ADSORBED 10/14/2007 5 - Intolerance Comments: [facility] Date Reviewed: 05/27/2024 Reviewed by: Ana Frye MA - Fully Assessed Reason for Visit: faxed orders to [facility]- polysomnogram [Other] Prescriptions as of 06/07/2024 - [...] [facility] CNPNon 06-01-2024 CNPN Normal [facility] XR Chest PA and Lateralon IMPRESSION: Nonspecific parenchymal changes in right lung base with no definite acute radiographic abnormality. Water Conservationist: PSCB Transcribe Date/Time: May 28 2024 1:52P Dictated by : JASON EMERY MD This examination was interpreted and the report reviewed and electronically signed by: JASON EMERY MD on May 28 2024 1:53PM [facility] DIVISION OF RADIOLOGY * * *Final [...] soft tissues: Unremarkable. DIVISION OF RADIOLOGY Provider, [facility] - 05/28/2024 * * *Final Report* * [...] base with no definite acute radiographic abnormality. Water Conservationist: [facility] Transcribe Date/Time: May 28 2024 1:52P Dictated by : JASON EMERY MD This examination was interpreted and the report reviewed and electronically signed by: JASON EMERY MD on May 28 2024 1:53PM EST [facility] XR Chest PA and LateralOrder ed By: Ccf Provider on 05-28-2024 [facility] Basic metabolic 2000 panelon 05-27-2024 Anion gap [Moles/Vol] 10 mmol/L Normal 8-15 [facility] Comment on above: Order Comment: Speci men Type: BLOOD SPECIMENOrdering Facility: [facility] Address: [address] [place] [address] Performed By: #### 3 3762-6, 66459-6 ####[facility] LABCLIA [id number] [place] [address] [place] Calcium [Mass/Vol] 9.9 mg/dL Normal 8.5-10.2 [facility] Comment on above: Order Comment: Speci men Type: BLOOD SPECIMENOrdering Facility: [facility] Address: [address] [place] [address] Performed By: #### 3 3762-6, 31091-5 ####[facility] LABCLIA [id number] [place] [address] [place] Chloride [Moles/Vol] 107 mmol/L Normal 98-107 [facility] Comment on above: Order Comment: Speci men Type: BLOOD SPECIMENOrdering Facility: [facility] Address: [address] [place] [address] Performed By: #### 3 3762-6, 72235-2 ####[facility] LABCLIA [id number] [place] [address] [place] CO2 [Moles/Vol] 25 mmol/L Normal 22-30 [facility] Comment on above: Order Comment: Speci men Type: BLOOD SPECIMENOrdering Facility: [facility] Address: [address] [place] [address] Performed By: #### 3 3762-6, 39725-5 ####[facility] LABCLIA [id number] [place] [address] [place] Creatinine [Mass/Vol] 0.83 mg/dL Normal 0.58-0.96 [facility] Comment on above: Order Comment: Speci men Type: BLOOD SPECIMENOrdering Facility: [facility] Address: [address] [place] [address] Performed By: #### 3 3762-6, 41535-8 ####[facility] LABCLIA [id number] [place] [address] [place] Creatinine and Glomerular filtration rate.predicted panel (S/P/Bld) 68 mL/min/1.73m??? Normal >=60 [facility] Comment on above: Order Comment: Jacob chavez Type: BLOOD SPECIMENOrdering Facility: [facility] Address: [address] [place] [address] Result Comment: Deidra mated Glomerular Filtration Rate [...] actual GFR. Performed By: #### 3 3762-6, 99955-3 ####[facility] [id number] [place] [address] [place] Glucose [Mass/Vol] 90 mg/dL Normal 74-99 [facility] Comment on above: Order Comment: Jacob chavez Type: BLOOD SPECIMENOrdering Facility: [facility] Address: [address] [place] [address] Result Comment: The [place] Diabetes Association (ADA) provides guidance for cutoff [...] Standards of Medical Care in Diabetes 2016, [place] [employer]. Diabetes Care. 2016.39(Suppl 1). Performed By: #### 3 3762-6, 24967-4 ####[facility] LABIA [id number] [address] [id number] [address] [place] Potassium [Moles/Vol] 4.3 mmol/L Normal 3.7-5.1 [facility] Comment on above: Order Comment: Speci men Type: BLOOD SPECIMENOrdering Facility: [facility] Address: [address] [place] [address] Performed By: #### 3 3762-6, 18098-6 ####[facility] LABCLIA [id number] [place] [address] [place] Sodium [Moles/Vol] 142 mmol/L Normal 136-144 [facility] Comment on above: Order Comment: Speci men Type: BLOOD SPECIMENOrdering Facility: [facility] Address: [address] [place] [address] Performed By: #### 3 3762-6, 03130-0 ####[facility] LABCLIA [id number] [place] [address] [place] Urea nitrogen [Mass/Vol] 22 mg/dL High 7-21 [facility] Comment on above: Order Comment: Speci men Type: BLOOD SPECIMENOrdering Facility: [facility] Address: [address] [place] [address] Performed By: #### 3 3762-6, 82127-7 ####[facility] LABCLIA [id number] [place] [address] [place] CBC panel Auto (Bld)on 05-27 Erythrocyte distribution width (RBC) [Ratio] 14.4 % 11.5 - 15.0 % [facility] Hematocrit (Bld) [Volume fraction] 41.1 % 36.0 - 46.0 % [facility] Hemoglobin (Bld) [Mass/Vol] 12.6 g/dL 11.5 - 15.5 g/dL [facility] Interpretation and review of laboratory results Normal [facility] MCH (RBC) [Entitic mass] 29.6 pg 26.0 - 34.0 pg [facility] MCHC (RBC) [Mass/Vol] 30.7 g/dL 30.5 - 36.0 g/dL [facility] MCV (RBC) [Entitic vol] 96.7 fL 80.0 - 100.0 fL [facility] Nucleated RBC (Bld) [#/Vol] NINF [facility] Platelet mean volume (Bld) [Entitic vol] 10.6 fL 9.0 - 12.7 fL [facility] Platelets (Bld) [#/Vol] 244 10*3/uL [facility] RBC (Bld) [#/Vol] 4.25 10*6/uL 3.90 - 5.2 0 m/uL [facility] WBC (Bld) [#/Vol] 6.14 10*3/uL [facility] Erythrocyte distribution width (RBC) [Ratio] 14.4 % Normal 11.5-15.0 [facility] Comment on above: Order Comment: Speci men Type: BLOOD SPECIMENOrdering Facility: [facility] Address: [address] [place] [address] Performed By: #### 5 8410-2 ####[facility] LABIA [id number] [place] [address] [place] Hematocrit (Bld) [Volume fraction] 41.1 % Normal 36.0-46.0 [facility] Comment on above: Order Comment: Speci men Type: BLOOD SPECIMENOrdering Facility: [facility] Address: [address] [place] [address] Performed By: #### 5 8410-2 ####[facility] LABIA [id number] [place] [address] [place] Hemoglobin (Bld) [Mass/Vol] 12.6 g/dL Normal 11.5-15.5 [facility] Comment on above: Order Comment: Speci men Type: BLOOD SPECIMENOrdering Facility: [facility] Address: [address] [place] [address] Performed By: #### 5 8410-2 ####[facility] LABCLIA [id number] [place] [address] [place] MCH (RBC) [Entitic mass] 29.6 pg Normal 26.0-34.0 [facility] Comment on above: Order Comment: Speci men Type: BLOOD SPECIMENOrdering Facility: [facility] Address: [address] [place] [address] Performed By: #### 5 8410-2 ####[facility] LABCLIA [id number] [place] [address] [place] MCHC (RBC) [Mass/Vol] 30.7 g/dL Normal 30.5-36.0 [facility] Comment on above: Order Comment: Speci men Type: BLOOD SPECIMENOrdering Facility: [facility] Address: [address] [place] [address] Performed By: #### 5 8410-2 ####[facility] LABIA [id number] [place] [address] [place] MCV (RBC) [Entitic vol] 96.7 fL Normal 80.0-100.0 [facility] Comment on above: Order Comment: Speci men Type: BLOOD SPECIMENOrdering Facility: [facility] Address: [address] [place] [address] Performed By: #### 5 8410-2 ####[facility] LABIA [id number] [place] [address] [place] Nucleated RBC (Bld) [#/Vol] 10*3/uL Normal <0.01 [facility] Comment on above: Order Comment: Speci men Type: BLOOD SPECIMENOrdering Facility: [facility] Address: [address] [place] [address] Performed By: #### 5 8410-2 ####[facility] LABIA [id number] [place] [address] [place] Platelet mean volume (Bld) [Entitic vol] 10.6 fL Normal 9.0-12.7 [facility] Comment on above: Order Comment: Speci men Type: BLOOD SPECIMENOrdering Facility: [facility] Address: [address] [place] [address] Performed By: #### 5 8410-2 ####[facility] LABIA [id number] [place] [address] [place] Platelets (Bld) [#/Vol] 244 10*3/uL Normal 150-400 [facility] Comment on above: Order Comment: Speci men Type: BLOOD SPECIMENOrdering Facility: [facility] Address: [address] [place] [address] Performed By: #### 5 8410-2 ####[facility] LABIA [id number] [place] [address] [place] RBC (Bld) [#/Vol] 4.25 10*6/uL Normal 3.90-5.20 [facility] Comment on above: Order Comment: Speci men Type: BLOOD SPECIMENOrdering Facility: [facility] Address: [address] [place] [address] Performed By: #### 5 8410-2 ####[facility] LABIA [id number] [place] [address] [place] WBC (Bld) [#/Vol] 6.14 10*3/uL Normal 3.70-11.00 [facility] Comment on above: Order Comment: Speci men Type: BLOOD SPECIMENOrdering Facility: [facility] Address: [address] [place] [address] Performed By: #### 5 8410-2 ####[facility] LABIA [id number] [place] [address] [place] CNOVon 05-27-2024 CNOV Normal [facility] NT-proBNP SerPl-mCncon 05-27 Natriuretic peptide.B prohormone N-Terminal [Mass/Vol] 286 pg/mL Normal <450 [facility] Comment on above: Order Comment: Speci men Type: BLOOD SPECIMENOrdering Facility: [facility] Address: [address] [place] [id number] Performed By: #### 3 3762-6, 73138-4 ####[facility] LABCLIA [id number] [facility] [place] [id number] [place] XR CHEST 2V FRONTAL/LATon XR CHEST 2V FRONTAL/LAT Normal [facility] XR Chest PA and Lateralon Radiology Study observation (narrative) [facility] CNTHERAPYon 05-26-2024 CNTHERAPY Normal [facility] CNPNon 05-25-2024 CNPN Normal [facility] CNTHERAPYon 05-20-2024 CNTHERAPY Normal [facility] CNOVon 05-16-2024 CNOV Normal [facility] CNPNon 05-16-2024 CNPN Normal [facility] CNOVon 05-13-2024 CNOV Normal [facility] CNPNon 05-13-2024 CNPN Normal [facility] ECG COMPLETEon 05-13-2024 ECG COMPLETE Normal [facility] CNPNon 05-12-2024 CNPN Normal [facility] CNTHERAPYon 05-12-2024 CNTHERAPY Normal [facility] CNTHERAPYon 05-05-2024 CNTHERAPY Normal [facility] POLYSOMNOGRAM (PSG)/HOME SLE EP APNEA TEST (HSAT)on 05-05-2024 POLYSOMNOGRAM (PSG)/HOME SLEEP APNEA TEST (HSAT) Normal [facility] [id number] 04-27-2024 [id number] Normal [facility] CNTHERAPYon 04-26-2024 CNTHERAPY Normal [facility] THERAPY NTon 04-26-2024 THERAPY NT Normal [facility] CNOVon 04-18-2024 CNOV Normal [facility] [id number] 01-27-2024 [id number] HNO ID: [id number] Author: JOSE RODRIGUEZ CCC-RETICLE PRINTER Service: ? Author Type: Speech Language Pathologist Type: [id number] Filed: 01/27/2024 16:46 Note Text: [facility] Speech Therapy Plan of Care Certification Patient Name: Geoffrey Nassar : 1935 CCF #: [id number] Date: 01/27/2024 To: Ailyn Bonner, APR* From Therapist: Jose Rodriguez [facility] RE: Patient Certification/ Recertification Your review, approval [...] Speech Communication deficits identified: Cognitive deficits RECOMMENDATION: RETICLE PRINTER Recommendations: Outpatient Speech Therapy Results and Recommendations [...] and Duration: Planned Treatment Interventions: Cognitive-Linguistic Training (16471, [id number], [id number]), Patient / Caregiver Education/ Training Current Frequency: [...] reviewed the treatment plan for Geoffrey Nassar, F# [id number] for the period of 01/27/24 -- 02/26/24, established on 01/27/2024. Signature certifies the need for therapy services. [facility] CNTHERAPYon 01-27-2024 CNTHERAPY OT/PT/Speech Visit (SPEMML) -- GEOFFREY NASSAR ([id number]) 1935 F [place] Date Time Provider Department 01/27/24 3:30 PM JOSE RODRIGUEZ Date Time Provider Department [place] 01/27/2024 3:30 PM [id number] RODRIGUEZ [facility] Reason for Visit: Speech [...] ANTIBIOTICS) 12/15/2011 8 - GI Upset SYMBICORT (BUDESONIDE-FORMOTEROL) 11/27/2009 5 - Intolerance Comments: tremor,shaky TETANUS TOXOID ADSORBED 10/14/2007 5 - Intolerance Comments: arm keyonnall Date Reviewed: 01/21/2024 Reviewed by: Michelle Reagan APRN.CHRISTMAS BELL RINGER - Fully Assessed Prescriptions as of 01/27/2024 [...] - MULTIVITAMIN TAB Take one(1) tablet daily. -- Letter Text Normal [facility] 01-21-2024 [facility] Office Visit (NEAGCL M) -- GEOFFREY NASSAR ([id number]) 1935 F Date Time Provider Department 01/21/24 2:00 PM MICHELLE REAGAN NEAGCLM During your visit today, we recorded the following information about you: Pulse Blood pressure Weight Height 59/minute 115/75 76.6 kg 1.575 m Michelle Reagan APRN.CNP 01/21/2024 2:37 PM Signed NEUROSURGERY FOLLOW UP OFFICE NOTE Michelle Reagan APRN.CNP Date of visit: January 21, 2024 Patient Name: Ms.Sally Barbie Nassar Date of : 1935 Current Age: [age] year old Sex: female MRN/E# [id number] Last Office Visit: 10/22/2023 CHIEF COMPLAINT: Patient presents with: Established Patient HPI: The patient presents for a follow up without new imaging for evaluation. This is an 88-year-old female with a PMHx of diverticulosis, HTN, PE, pacemaker, asthma, umbilical hernia, GERD, hypothyroidism, degenerative disc disease (lumbar) tubular adenoma of the colon who was seen for consult at [facility] on 10/03/2023 after transfer from an outside ED by Dr. Markham. Patient was seen after a fall in [...] Bronchiectasis without complication (HCC) 11/27/2009 Dr. Jaswant Luevano, pulmonary. DDD (degenerative disc disease), lumbar 02/16/2012 [...] NSTEMI. Pulmonary nodule 01/08/2017 SAH (subarachnoid hemorrhage) ([facility]) 10/03/2023 Tubular adenoma of colon 12/29/2017 [...] CNOVon 11-09-2023 CNOV Office Visit (NTBIBA ) -- GEOFFREY NASSAR ([id number]) 1935 F [place] Date Time Provider Department [...] encounter. The patient chart reviewed in [facility] and history obtained/confirmed with patient. 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 She uses cane [...] cleaning, laundry but she has assigned a natural gas plant technician to help with cleaning. She drives without [...] [facility]NTBIBA ) -- GEOFFREY NASSAR ([id number]) 1935 F [place] Date Time Provider Department 11/09/23 1:00 PM ARACELIS PORTILLO NTBINTABA During your visit today, we recorded the following information about you: Aracelis Portillo, PhD 11/10/2023 2:32 PM Signed traumatic Aracelis Portillo, PhD 11/10/2023 2:32 PM Signed [facility] Department of Neurology Section of Neuropsychology Neuropsychological Evaluation Report PATIENT NAME: Geoffrey Nassar DATE OF : 1935 DATE OF SERVICE: 11/09/2023 REFERRAL SOURCE: Michelle Reagan APRN, CNP Geoffrey is an 88 year [...] to her home she bent down to apple picker a twig that had fallen. She [...] take her to the emergency department at [facility]. CT scan of the brain indicated a brain bleed and she was subsequently transferred to [facility] where she was admitted. Geoffrey stated that the bleed resolved without neurosurgical intervention and she was discharged home on 10/05/2023. Injury Description: Loss of Consciousness: none Post-traumatic amnesia: none [place] Coma Scale:15 Neuroimaging findings: CT scan of the brain indicated bilateral subarachnoid hemorrhages Residual physical symptoms: none COGNITIVE CONCERNS: Geoffrey denied any prior history of cognitive concerns. Subsequent to her injury she has not noted any changes in cognitive abilities and feels she is at her baseline. 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: independent - recently hired a natural gas plant technician and uses food delivery services from [employer] and [employer] Medications: independent Finances: independent Driving: independent MEDICAL [...] use: denied Recent Neurological workup with Michelle Reagan APRN, CNP on 10/22/2023 revealed: Neurological Exam: [...] [facility] CN[facility] 10-22-2023 CNOV Office Visit (NEAGCL M) -- GEOFFREY NASSAR ([id number]) 1935 F Date Time Provider Department 10/22/23 2:30 PM MICHELLE REAGAN NEAGCLM During your visit today, we recorded the following information about you: Pulse Respiration Blood pressure Weight 60/minute 16/minute 114/76 77.5 kg Height 1.626 m Michelle Reagan APRN.CNP 10/22/2023 4:05 PM Signed NEUROSURGERY FOLLOW UP OFFICE NOTE Michelle Reagan APRN.CNP Date of visit: October 22, 2023 Patient Name: Ms.Sally Barbie Nassar Date of : 1935 Current Age: [age] year old Sex: female MRN/E# [id number] Last Office Visit: Hospital follow-up CHIEF COMPLAINT: Patient presents with: Established Patient HPI: The patient presents for a hospital follow up with imaging (CT B) for evaluation. This is an 88-year-old female with a PMHx of diverticulosis, HTN, PE, pacemaker, asthma, umbilical hernia, GERD, hypothyroidism, degenerative disc disease (lumbar) tubular adenoma of the colon who was seen for consult at [facility] on 10/03/2023 after transfer from an outside ED by Dr. Markham. Patient was seen after a fall in [...] Bronchiectasis without complication (HCC) 11/27/2009 Dr. Jaswant Luevano, pulmonary. DDD (degenerative disc disease), lumbar 02/16/2012 [...] [facility] Head WO contraston 2023 [facility] Basic metabolic 2000 panelon 10-05-2023 Anion gap [Moles/Vol] 8 mmol/L Low 9-18 [facility] Comment on above: Order Comment: Speci men Type: BLOOD SPECIMENOrdering Facility: [facility] Address: [address] [place] [address] Performed By: #### 2 4321-2 ####[facility] LABORATORYCLIA [id number] [place] [address] [place] Calcium [Mass/Vol] 9.1 mg/dL Normal 8.5-10.2 [facility] Comment on above: Order Comment: Speci men Type: BLOOD SPECIMENOrdering Facility: [facility] Address: [address] [place] [address] Performed By: #### 2 4321-2 ####[facility] LABORATORYCLIA [id number] [place] [address] [place] Chloride [Moles/Vol] 101 mmol/L Normal 97-105 [facility] Comment on above: Order Comment: Speci men Type: BLOOD SPECIMENOrdering Facility: [facility] Address: [address] [id number] Performed By: #### 2 4321-2 ####[facility] LABORATORYCLIA [id number] [place] [id number] [place] [facility] CO2 [Moles/Vol] 23 mmol/L Normal 22-30 [facility] Comment on above: Order Comment: Speci men Type: BLOOD SPECIMENOrdering Facility: [facility] Address: [address] [place] [address] Performed By: #### 2 4321-2 ####[facility] LABORATORYCLIA [id number] [address] OF [facility] Creatinine [Mass/Vol] 0.67 mg/dL Normal 0.58-0.96 [facility] Comment on above: Order Comment: Speci men Type: BLOOD SPECIMENOrdering Facility: [facility] Address: [address] [place] [address] Performed By: #### 2 4321-2 ####[facility] LABORATORYCLIA [id number] [address] Creatinine and Glomerular filtration rate.predicted panel (S/P/Bld) 85 mL/min/1.73m??? Normal >=60 [facility] Comment on above: Order Comment: Speci men Type: BLOOD SPECIMENOrdering Facility: [facility] Address: [address] [place] [address] Result Comment: Deidra mated Glomerular Filtration Rate [...] Performed By: #### 2 4321-2 ####[facility] LABORATORYCLIA [id number] [address] Glucose [Mass/Vol] 92 mg/dL Normal 74-99 [facility] Comment on above: Order Comment: Speci men Type: BLOOD SPECIMENOrdering Facility: [facility] Address: [address] [place] [address] Result Comment: The [place] [employer] (ADA) provides guidance for cutoff [...] Standards of Medical Care in Diabetes 2016, [place] [employer]. Diabetes Care. 2016.39(Suppl 1). Performed By: #### 2 4321-2 ####[facility] LABORATORYCLIA [id number] [place] [address] [place] Potassium [Moles/Vol] 4.6 mmol/L Normal 3.7-5.1 [facility] Comment on above: Order Comment: Speci men Type: BLOOD SPECIMENOrdering Facility: [facility] Address: [address] [place] [address] Performed By: #### 2 1-2 ####[facility] LABORATORYCLIA [id number] [place] [address] [place] Sodium [Moles/Vol] 132 mmol/L Low 136-144 [facility] Comment on above: Order Comment: Speci men Type: BLOOD SPECIMENOrdering Facility: [facility] Address: [address] [place] [address] Performed By: #### 2 1-2 ####[facility] LABORATORYCLIA [id number] [place] [address] [place] Urea nitrogen [Mass/Vol] 17 mg/dL Normal 7-21 [facility] Comment on above: Order Comment: Speci men Type: BLOOD SPECIMENOrdering Facility: [facility] Address: [address] [place] [address] Performed By: #### 2 1-2 ####[facility] LABORATORYCLIA [id number] [address] [place] CASE MANAGEMon 10-05-2023 CASE MANAGEM HNO ID: [id number] Author: GRETEL CANNON LSW Service: ? Author Type: Maori Physiotherapist Type: Care Mgt Progress Note Filed: 10/05/2023 [...] 05, 2023 TIME: 8:20 AM PAGER/CONTACT #: [phone] Normal [facility] CBC panel Auto (Bld)on 10-05 Erythrocyte distribution width (RBC) [Ratio] 14.2 % Normal 11.5-15.0 [facility] Comment on above: Order Comment: Speci men Type: BLOOD SPECIMENOrdering Facility: [facility] Address: [address] [place] [address] Performed By: #### 5 8410-2 ####[facility] LABORATORYCLIA [id number] [address] [place] Hematocrit (Bld) [Volume fraction] 38.2 % Normal 36.0-46.0 [facility] Comment on above: Order Comment: Speci men Type: BLOOD SPECIMENOrdering Facility: [facility] Address: [address] [place] [address] Performed By: #### 5 8410-2 ####[facility] LABORATORYCLIA [id number] [place] [id number] [place] Hemoglobin (Bld) [Mass/Vol] 11.9 g/dL Normal 11.5-15.5 [facility] Comment on above: Order Comment: Speci men Type: BLOOD SPECIMENOrdering Facility: [facility] Address: [address] [place] [address] Performed By: #### 5 8410-2 ####[facility] LABORATORYCLIA [id number] [address] MCH (RBC) [Entitic mass] 29.5 pg Normal 26.0-34.0 [facility] Comment on above: Order Comment: Speci men Type: BLOOD SPECIMENOrdering Facility: [facility] Address: [address] [place] [address] Performed By: #### 5 8410-2 ####[facility] LABORATORYCLIA [id number] [address] [place] OF [facility] MCHC (RBC) [Mass/Vol] 31.2 g/dL Normal 30.5-36.0 [facility] Comment on above: Order Comment: Speci men Type: BLOOD SPECIMENOrdering Facility: [facility] Address: [address] [place] [address] Performed By: #### 5 8410-2 ####[facility] LABORATORYCLIA [id number] [address] MCV (RBC) [Entitic vol] 94.8 fL Normal 80.0-100.0 [facility] Comment on above: Order Comment: Speci men Type: BLOOD SPECIMENOrdering Facility: [facility] Address: [address] [place] [address] Performed By: #### 5 8410-2 ####[facility] LABORATORYCLIA [id number] [address] Nucleated RBC (Bld) [#/Vol] 10*3/uL Normal <0.01 [facility] Comment on above: Order Comment: Speci men Type: BLOOD SPECIMENOrdering Facility: [facility] Address: [address] [place] [address] Performed By: #### 5 8410-2 ####[facility] LABORATORYCLIA [id number] [address] [place] Platelet mean volume (Bld) [Entitic vol] 10.3 fL Normal 9.0-12.7 [facility] Comment on above: Order Comment: Speci men Type: BLOOD SPECIMENOrdering Facility: [facility] Address: [address] [place] [address] Performed By: #### 5 8410-2 ####[facility] LABORATORYCLIA [id number] [address] OF [facility] Platelets (Bld) [#/Vol] 205 10*3/uL Normal 150-400 [facility] Comment on above: Order Comment: Speci men Type: BLOOD SPECIMENOrdering Facility: [facility] Address: [address] [place] [address] Performed By: #### 5 8410-2 ####[facility] LABORATORYCLIA [id number] [address] RBC (Bld) [#/Vol] 4.03 10*6/uL Normal 3.90-5.20 [facility] Comment on above: Order Comment: Speci men Type: BLOOD SPECIMENOrdering Facility: [facility] Address: [address] [place] [address] Performed By: #### 5 8410-2 ####[facility]ORATORYCLIA [id number] [address] WBC (Bld) [#/Vol] 6.88 10*3/uL Normal 3.70-11.00 [facility] Comment on above: Order Comment: Speci men Type: BLOOD SPECIMENOrdering Facility: [facility] Address: [address] [place] [address] Performed By: #### 5 8410-2 ####[facility]ORATORYCLIA [id number] [address] CNDSon 10-05-2023 CNDS HNO ID: [id number] Author: WEN GALICIA MD Service: General Surgery [...] Wen Galicia MD Primary Care Provider: Ken Whelan MD My Medical Team Members: Treatment Team: Attending Provider: Wen Galicia MD MY CONDITION AT DISCHARGE: Stable REASON I WAS IN THE HOSPITAL: Traumatic brain injury; Subarachnoid hemorrhage resulting from a fall SUMMARY OF WHAT HAPPENED WHILE I WAS IN THE HOSPITAL: Ms. Geoffrey Nassar presented to [facility] on 10/02/2023 as a transfer from [facility] for treatment of injuries sustained during a [...] you become constipated, you may use any lybo-xxn-wbtnvup treatment such as Milk of Magnesia, Sennakot, [...] call for appointment?: Yes Maxime Umanzor MD [phone] 7[address] [facility] [address] PCP Requested Referral Follow-Up Appointment It is recommended that you follow-up with your primary care provider after hospital discharge. When: In 2 weeks Patient/Parents to call for appointment?: Yes Ken Whelan MD [phone] [address] [facility] [address] PCP Requested Referral Addition (more content not included)... Normal [facility] ALLIED HEALTHon 10-04-2023 ALLIED HEALTH HNO ID: [id number] Author: GRACE HARRIS RT(R) Service: ? Author [...] PATIENT PRESENTS WITH AN IMPLANTABLE OR ATTACHED TIN PLATER: No RADIOLOGY DEPARTMENT: General X-ray: Exam(s) Completed: Chest X-Ray PERIPHERAL IV DATA: Not applicable SIGNED BY: RT Timo(R) October 04, 2023 5:31 AM Normal [facility] Basic metabolic 2000 panelon 10-04-2023 Anion gap [Moles/Vol] 8 mmol/L Low 9-18 [facility] Comment on above: Order Comment: Speci men Type: BLOOD SPECIMENOrdering Facility: [facility] Address: [address] [place] [address] Performed By: #### 2 432-2 ####[facility] LABORATORYCLIA [id number] [place] [address] [place] Calcium [Mass/Vol] 9.2 mg/dL Normal 8.5-10.2 [facility] Comment on above: Order Comment: Speci men Type: BLOOD SPECIMENOrdering Facility: [facility] Address: [address] [place] [address] Performed By: #### 2 4321-2 ####[facility] LABORATORYCLIA [id number] [place] [address] [place] Chloride [Moles/Vol] 105 mmol/L Normal 97-105 [facility] Comment on above: Order Comment: Speci men Type: BLOOD SPECIMENOrdering Facility: [facility] Address: [address] [place] [address] Performed By: #### 2 4321-2 ####[facility] LABORATORYCLIA [id number] [address] [place] [facility] CO2 [Moles/Vol] 25 mmol/L Normal 22-30 [facility] Comment on above: Order Comment: Speci men Type: BLOOD SPECIMENOrdering Facility: [facility] Address: [address] [place] [address] Performed By: #### 2 4321-2 ####[facility]ORATORYCLIA [id number] [address] [place] Creatinine [Mass/Vol] 0.83 mg/dL Normal 0.58-0.96 [facility] Comment on above: Order Comment: Speci men Type: BLOOD SPECIMENOrdering Facility: [facility] Address: [address] [place] [address] Performed By: #### 2 4321-2 ####[facility] LABORATORYCLIA [id number] [address] Creatinine and Glomerular filtration rate.predicted panel (S/P/Bld) 69 mL/min/1.73m??? Normal >=60 [facility] Comment on above: Order Comment: Speci men Type: BLOOD SPECIMENOrdering Facility: [facility] Address: [address] [place] [address] Result Comment: Deidra mated Glomerular Filtration Rate [...] Performed By: #### 2 4321-2 ####[facility] LABORATORYCLIA [id number] [address] [place] [facility] Glucose [Mass/Vol] 100 mg/dL High 74-99 [facility] Comment on above: Order Comment: Speci men Type: BLOOD SPECIMENOrdering Facility: [facility] Address: [address] [place] [address] Result Comment: The [place] [employer] (ADA) provides guidance for cutoff [...] Standards of Medical Care in Diabetes 2016, [place] [employer]. Diabetes Care. 2016.39(Suppl 1). Performed By: #### 2 4321-2 ####[facility] LABORATORYCLIA [id number] [place] [address] [place] Potassium [Moles/Vol] 4.1 mmol/L Normal 3.7-5.1 [facility] Comment on above: Order Comment: Speckaley chavez Type: BLOOD SPECIMENOrdering Facility: [facility] Address: [address] [place] [address] Performed By: #### 2 4321-2 ####[facility]ORATORYCLIA [id number] [place] [address] [place] Sodium [Moles/Vol] 138 mmol/L Normal 136-144 [facility] Comment on above: Order Comment: Jacob chavez Type: BLOOD SPECIMENOrdering Facility: [facility] Address: [address] [place] [address] Performed By: #### 2 4321-2 ####[facility] LABORATORYCLIA [id number] [address] [place] Urea nitrogen [Mass/Vol] 20 mg/dL Normal 7-21 [facility] Comment on above: Order Comment: Jacob cahvez Type: BLOOD SPECIMENOrdering Facility: [facility] Address: [address] [place] [address] Performed By: #### 2 4321-2 ####[facility]ORATORYCLIA [id number] [place] [address] [place] CBC panel Auto (Bld)on 10-04 Erythrocyte distribution width (RBC) [Ratio] 14.8 % Normal 11.5-15.0 [facility] Comment on above: Order Comment: Speci men Type: BLOOD SPECIMENOrdering Facility: [facility] Address: [address] [place] [address] Performed By: #### 5 8410-2 ####[facility] LABORATORYCLIA [id number] [address] OF [facility] Hematocrit (Bld) [Volume fraction] 35.2 % Low 36.0-46.0 [facility] Comment on above: Order Comment: Speci men Type: BLOOD SPECIMENOrdering Facility: [facility] Address: [address] [place] [address] Performed By: #### 5 8410-2 ####[facility] LABORATORYCLIA [id number] [address] [place] Hemoglobin (Bld) [Mass/Vol] 11.2 g/dL Low 11.5-15.5 [facility] Comment on above: Order Comment: Speci men Type: BLOOD SPECIMENOrdering Facility: [facility] Address: [address] [place] [address] Performed By: #### 5 8410-2 ####[facility] LABORATORYCLIA [id number] [address] [place] MCH (RBC) [Entitic mass] 29.7 pg Normal 26.0-34.0 [facility] Comment on above: Order Comment: Speci men Type: BLOOD SPECIMENOrdering Facility: [facility] Address: [address] [place] [address] Performed By: #### 5 8410-2 ####[facility] LABORATORYCLIA [id number] [address] [place] MCHC (RBC) [Mass/Vol] 31.8 g/dL Normal 30.5-36.0 [facility] Comment on above: Order Comment: Speci men Type: BLOOD SPECIMENOrdering Facility: [facility] Address: [address] [place] [address] Performed By: #### 5 8410-2 ####[facility]ORATORYCLIA [id number] [address] STATES [facility] MCV (RBC) [Entitic vol] 93.4 fL Normal 80.0-100.0 [facility] Comment on above: Order Comment: Speci men Type: BLOOD SPECIMENOrdering Facility: [facility] Address: [address] [place] [address] Performed By: #### 5 8410-2 ####[facility] LABORATORYCLIA [id number] [address] [place] Nucleated RBC (Bld) [#/Vol] 10*3/uL Normal <0.01 [facility] Comment on above: Order Comment: Speci men Type: BLOOD SPECIMENOrdering Facility: [facility] Address: [address] [place] [address] Performed By: #### 5 8410-2 ####[facility]ORATORYCLIA [id number] [address] Platelet mean volume (Bld) [Entitic vol] 10.2 fL Normal 9.0-12.7 [facility] Comment on above: Order Comment: Speci men Type: BLOOD SPECIMENOrdering Facility: [facility] Address: [address] [place] [address] Performed By: #### 5 8410-2 ####[facility]ORATORYCLIA [id number] [address] Platelets (Bld) [#/Vol] 206 10*3/uL Normal 150-400 [facility] Comment on above: Order Comment: Speci men Type: BLOOD SPECIMENOrdering Facility: [facility] Address: [address] [place] [address] Performed By: #### 5 8410-2 ####[facility]ORATORYCLIA [id number] [address] [place] RBC (Bld) [#/Vol] 3.77 10*6/uL Low 3.90-5.20 [facility] Comment on above: Order Comment: Speci men Type: BLOOD SPECIMENOrdering Facility: [facility] Address: [address] [place], [place] [address] Performed By: #### 5 8410-2 ####[facility] LABORATORYCLIA [id number] [place] [id number] [facility] OF [facility] WBC (Bld) [#/Vol] 9.00 10*3/uL Normal 3.70-11.00 [facility] Comment on above: Order Comment: Speci men Type: BLOOD SPECIMENOrdering Facility: [facility] Address: [address] [place], [place] [address] Performed By: #### 5 8410-2 ####[facility] LABORATORYCLIA [id number] [place] [id number] [facility] THERAPY NTon 10-04-2023 THERAPY NT HNO ID: [id number] Author: JENNIFER YIN CCC-RETICLE PRINTER Service: Speech/Swallow Author Type: Speech Language Pathologist Type: Therapy (PT/OT/Speech/Resp) Filed: 10/04/2023 11:13 Note Text: Speech Therapy Speech Evaluation SERVICE DATE: 10/04/2023 SERVICE TIME: 1055 to 1110 ROOM: [place] [address] IMPRESSION: Functional communication without limitations in: Speech, [...] self-manage Oral Motor Exam: Within Functional Limits Speech/Cognition/Language Speech Production: Within Functional Limits Expressive and [...] 11/07 Months Reversed 10/10 30 Seconds 11/07 Whxe-Gqtt-Prik 11/07 Go/No-Go 11/07 Address Recall 10/10 Total Patient /Caregiver Goals: Go Home PLAN: ST Frequency: Discontinue Therapy Services Reasons Inpatient Therapy Services Discontinued: No skilled needs Plan of Care Developed with: Patient TREATMENT INTERVENTIONS: Therapy Diagnosis: No Skilled Need Interventions Provided: Speech Language Eval (38195) $ Speech Language Eval (21148) Billed Units: 1 unit The following therapeutic [...] details for this therapy evaluation/treatment. SIGNATURE: Jennifer Yin CCC-RETICLE PRINTER PATIENT NAME: Geoffrey Nassar DATE: October 04, 2023 TIME: 11:12 AM Normal [facility] THERAPY NT HNO ID: [id number] Author: MAC CONNOLLY OTR/Tamica Service: Occupational Therapy Author Type: Occupational Therapist Type: Therapy (PT/OT/Speech/Resp) Filed: 10/04/2023 11:04 Note Text: Occupational Therapy Evaluation Summary SERVICE DATE: 10/04/2023 SERVICE TIME: 0950 to 1037 ROOM: [id number]- OT 6 Clicks Score: 16 DISCHARGE RECOMMENDATIONS [...] Impaired cognition Recommended Discharge Equipment: Shower Chair, Business Services Tech, Wheeled Walker ASSESSMENT Response to Therapy Interventions: [...] Score): Negative (10/03/23) Facilitated completion of the [place] Cognitive Assessment (MOCA), which is a rapid screening instrument for mild cognitive dysfunction. Results are as follows: Version 8.1 Total Score: 16/30 Visuospatial/Executive Alternating [place] Makin Visuoconstructional Skills (Shape): 0 Visuoconstructional Skills (Clock): 3 Visuospatial/Executive Score: 4/5 Naming The patient was able [...] mod deficits in language, max deficits in abstraction/conceptual thinking, and min deficits in orientation. The total possible score is 30 points; a score of 26 or above is considered normal (no cognitive impairment). The MoCA was administered by an Officially Certified Occupational Therapist. THERAPY DIAGNOSIS Reduced mobility-other, Decreased activities of daily living (ADL), Muscle Weakness (generalized), Unsteadiness on feet, Signs and Symptoms Involving Cognitive Functions and Awareness TREATMENT INTERVENTIONS Evaluation, Self Shelter Management (9 (more content not included)... Normal [...] known bronchiectasis, mucous plugging, and tree-in-bud opacities. Water Conservationist: PSCB Transcribe Date/Time: Oct 04 2023 5:31A Dictated by : GABRIELE VIGIL MD This examination was interpreted and the report reviewed and electronically signed by: GABRIELE VIGIL MD on Oct 04 2023 5:33AM EST [id number] Normal [facility] 25(OH)D3 SerPl-mCncon 2023 25-hydroxyvitamin D3 [Mass/Vol] 58.6 ng/mL Normal >=30.0 [facility] Comment on above: Order Comment: Jacob chavez Type: BLOOD SPECIMENOrdering Facility: [facility] Address: [address] [place] [address] Result Comment: Clas sification of 25 [place] Vitamin D status: Deficiency: <= 20.0 ng/ml. Insufficiency: 21.0-29.0 ng/ml. Sufficiency: >= 30.0 ng/ml. Performed By: #### 1 989-3 ####[facility] LABORATORYCLIA [id number] [place] [address] [place] Basic metabolic 2000 panelon 10-03-2023 Anion gap [Moles/Vol] 7 mmol/L Low 9-18 [facility] Comment on above: Order Comment: Jacob chavez Type: BLOOD SPECIMENOrdering Facility: [facility] Address: [address] [place] [address] Performed By: #### 1 9123-9, 2777-1, 82799-7 ####[facility] LABORATORYCLIA [id number] [address] [place] Calcium [Mass/Vol] 8.6 mg/dL Normal 8.5-10.2 [facility] Comment on above: Order Comment: Jacob chavez Type: BLOOD SPECIMENOrdering Facility: [facility] Address: [address] [place] [address] Performed By: #### 1 9123-9, 2777-1, 09634-2 ####[facility] LABORATORYCLIA [id number] [place] [id number] [place] Chloride [Moles/Vol] 112 mmol/L High 97-105 [facility] Comment on above: Order Comment: Speci men Type: BLOOD SPECIMENOrdering Facility: [facility] Address: [address] [place] [address] Performed By: #### 1 9123-9, 2777-1, 24525-5 ####[facility]ORATORYCLIA [id number] [place] [id number] [place] CO2 [Moles/Vol] 25 mmol/L Normal 22-30 [facility] Comment on above: Order Comment: Speci men Type: BLOOD SPECIMENOrdering Facility: [facility] Address: [address] [place] [address] Performed By: #### 1 9123-9, 2777-1, 01389-0 ####[facility]ORATORYCLIA [id number] [address] [place] Creatinine [Mass/Vol] 0.71 mg/dL Normal 0.58-0.96 [facility] Comment on above: Order Comment: Speci men Type: BLOOD SPECIMENOrdering Facility: [facility] Address: [address] [place] [address] Performed By: #### 1 9123-9, 2777-1, 36913-0 ####[facility]ORATORYCLIA [id number] [place] [id number] [facility] Creatinine and Glomerular filtration rate.predicted panel (S/P/Bld) 83 mL/min/1.73m??? Normal >=60 [facility] Comment on above: Order Comment: Speci men Type: BLOOD SPECIMENOrdering Facility: [facility] Address: [address] [place] [address] Result Comment: Deidra mated Glomerular Filtration Rate [...] GFR. Performed By: #### 1 9123-9, 2777-1, 93571-1 ####[facility]ORATORYCLIA [id number] [place] [id number] [place] Glucose [Mass/Vol] 79 mg/dL Normal 74-99 [facility] Comment on above: Order Comment: Jacob chavez Type: BLOOD SPECIMENOrdering Facility: [facility] Address: [facility] [place] [address] Result Comment: The [place] Diabetes [employer] (ADA) provides guidance for cutoff [...] Standards of Medical Care in Diabetes 2016, [place] [employer]. Diabetes Care. 2016.39(Suppl 1). Performed By: #### 1 9123-9, 2777-, 72851-3 ####[facility] LABORATORYIA [id number] [place] [id number] [place] Potassium [Moles/Vol] 4.0 mmol/L Normal 3.7-5.1 [facility] Comment on above: Order Comment: Jacob chavez Type: BLOOD SPECIMENOrdering Facility: [facility] Address: [address] [place] [address] Performed By: #### 1 9123-9, 2777-1, 49321-0 ####[facility] LABORATORYCLIA [id number] [place] [address] [place] Sodium [Moles/Vol] 144 mmol/L Normal 136-144 [facility] Comment on above: Order Comment: Speci men Type: BLOOD SPECIMENOrdering Facility: [facility] Address: [address] [place] [address] Performed By: #### 1 9123-9, 2777-1, 49503-8 ####[facility]ORATORYCLIA [id number] [address] [place] Urea nitrogen [Mass/Vol] 18 mg/dL Normal 7-21 [facility] Comment on above: Order Comment: Speci men Type: BLOOD SPECIMENOrdering Facility: [facility] Address: [address] [place] [address] Performed By: #### 1 9123-9, 2777-1, 37408-9 ####[facility] LABORATORYCLIA [id number] [address] STATES OF [facility] CBC panel Auto (Bld)on 10-03 Erythrocyte distribution width (RBC) [Ratio] 14.3 % Normal 11.5-15.0 [facility] Comment on above: Order Comment: Speci men Type: BLOOD SPECIMENOrdering Facility: [facility] Address: [address] [place] [address] Performed By: #### 5 8410-2 ####[facility] LABORATORYCLIA [id number] [address] STATES OF [facility] Hematocrit (Bld) [Volume fraction] 42.0 % Normal 36.0-46.0 [facility] Comment on above: Order Comment: Speci men Type: BLOOD SPECIMENOrdering Facility: [facility] Address: [address] [place] [address] Performed By: #### 5 8410-2 ####[facility] LABORATORYCLIA [id number] [address] Hemoglobin (Bld) [Mass/Vol] 13.5 g/dL Normal 11.5-15.5 [facility] Comment on above: Order Comment: Speci men Type: BLOOD SPECIMENOrdering Facility: [facility] Address: [address] [place] [address] Performed By: #### 5 8410-2 ####[facility] LABORATORYCLIA [id number] [address] MCH (RBC) [Entitic mass] 30.3 pg Normal 26.0-34.0 [facility] Comment on above: Order Comment: Speci men Type: BLOOD SPECIMENOrdering Facility: [facility] Address: [address] [place] [address] Performed By: #### 5 8410-2 ####[facility] LABORATORYCLIA [id number] [address] MCHC (RBC) [Mass/Vol] 32.1 g/dL Normal 30.5-36.0 [facility] Comment on above: Order Comment: Speci men Type: BLOOD SPECIMENOrdering Facility: [facility] Address: [address] [place] [address] Performed By: #### 5 8410-2 ####[facility]ORATORYCLIA [id number] [address] MCV (RBC) [Entitic vol] 94.2 fL Normal 80.0-100.0 [facility] Comment on above: Order Comment: Speci men Type: BLOOD SPECIMENOrdering Facility: [facility] Address: [address] [place] [address] Performed By: #### 5 8410-2 ####[facility]ORATORYCLIA [id number] [address] Nucleated RBC (Bld) [#/Vol] 10*3/uL Normal <0.01 [facility] Comment on above: Order Comment: Speci men Type: BLOOD SPECIMENOrdering Facility: [facility] Address: [address] [place] [address] Performed By: #### 5 8410-2 ####[facility] LABORATORYCLIA [id number] [address] Platelet mean volume (Bld) [Entitic vol] 11.1 fL Normal 9.0-12.7 [facility] Comment on above: Order Comment: Speci men Type: BLOOD SPECIMENOrdering Facility: [facility] Address: [address] [place] [address] Performed By: #### 5 8410-2 ####[facility] LABORATORYCLIA [id number] [address] OF [facility] Platelets (Bld) [#/Vol] 252 10*3/uL Normal 150-400 [facility] Comment on above: Order Comment: Speci men Type: BLOOD SPECIMENOrdering Facility: [facility] Address: [address] [place] [address] Performed By: #### 5 8410-2 ####[facility] LABORATORYCLIA [id number] [address] RBC (Bld) [#/Vol] 4.46 10*6/uL Normal 3.90-5.20 [facility] Comment on above: Order Comment: Speci men Type: BLOOD SPECIMENOrdering Facility: [facility] Address: [address] [place] [address] Performed By: #### 5 8410-2 ####[facility] LABORATORYCLIA [id number] [address] WBC (Bld) [#/Vol] 11.43 10*3/uL High 3.70-11.00 [facility] Comment on above: Order Comment: Speci men Type: BLOOD SPECIMENOrdering Facility: [facility] Address: [address] [place] [address] Performed By: #### 5 8410-2 ####[facility] LABORATORYCLIA [id number] [address] CONSULTon 10-03-2023 CONSULT HNO ID: [id number] Author: SINDY ELLIS APRN.CHRISTMAS BELL RINGER Service: Neurosurgery Author Type: Nurse Practitioner Type: Consults Filed: 10/03/2023 01:44 Note Text: -- Attestation signed by Maxime Umanzor MD at [...] pt and her daughter. Maxime Umanzor MD -- CONSULT: NEUROSURGERY SERVICE Patient Name: Geoffrey Nassar Date of : 1935 SERVICE DATE: 10/03/2023 SERVICE TIME: 1:32 AM REASON FOR CONSULT: traumatic SAH REQUESTING PHYSICIAN: Jennifer Granados DO PRIMARY CARE PHYSICIAN: Ken Whelan MD Consultation requested by Dr. Granados for [...] use, who presented as a transfer from [facility] for trauma evaluation after a fall [...] Bronchiectasis without complication (HCC) 11/27/2009 Dr. Jaswant Luevano, pulmonary. DDD (degenerative disc disease), lumbar 02/16/2012 [...] DATE OF EXAM: Oct 03 2023 2:13AM [facility] 0530 - CT ABD/PEL W [...] changes about urinary bladder. Bones/Soft Tissues: Unremarkable. Stunt Man (topogram) images: Unremarkable. IMPRESSION: Chest: Bronchiectasis within [...] Correlate clinically Lumbar spine: No acute findings. Water Conservationist: TEMO Transcribe Date/Time: Oct 03 2023 2:21A Dictated by : CYNTHIA FELTON MD This examination was interpreted and the report reviewed and electronically signed by: CYNTHIA FELTON MD on Oct 03 2023 2:57AM EST [id number] Normal [facility] CT BRAIN WO IVCONon 10-03-19 CT BRAIN WO IVCON * * *Final Report* * * DATE OF EXAM: Oct 03 2023 1:59AM [facility] 0504 - CT BRAIN WO [...] head CT 10/02/2023 at 7:35 PM RESULT: Stunt Man (topogram) images: No additional significant findings Post-operative [...] similar. No new hemorrhage in the interval. Water Conservationist: [facility] Transcribe Date/Time: Oct 03 2023 6:52A Dictated by : GUZMAN EVANS MD This examination was interpreted and the report reviewed and electronically signed by: GUZMAN EVANS MD on Oct 03 2023 7:01AM EST [id number] Normal [facility] CT CHEST W IVCONon 4 CT CHEST W IVCON * * *Final Report* * * DATE OF EXAM: Oct 03 2023 2:13AM [facility] 0539 - CT CHEST W [...] changes about urinary bladder. Bones/Soft Tissues: Unremarkable. Stunt Man (topogram) images: Unremarkable. IMPRESSION: Chest: Bronchiectasis within [...] Correlate clinically Lumbar spine: No acute findings. Water Conservationist: TEMO Transcribe Date/Time: Oct 03 2023 2:21A Dictated by : CYNTHIA FELTON MD This examination was interpreted and the report reviewed and electronically signed by: CYNTHIA FELTON MD on Oct 03 2023 2:57AM EST [id number] Normal [facility] CT LUMBAR SPINE W RECON DATA -NBon 10-03-2023 CT LUMBAR SPINE W RECON DATA -NB * * *Final Report* * * DATE OF EXAM: Oct 03 2023 2:13AM [facility] 0481 - CT LUMBAR SPINE [...] changes about urinary bladder. Bones/Soft Tissues: Unremarkable. Stunt Man (topogram) images: Unremarkable. IMPRESSION: Chest: Bronchiectasis within [...] Correlate clinically Lumbar spine: No acute findings. Water Conservationist: TEMO Transcribe Date/Time: Oct 03 2023 2:21A Dictated by : CYNTHIA FELTON MD This examination was interpreted and the report reviewed and electronically signed by: CYNTHIA FELTON MD on Oct 03 2023 2:57AM EST [id number] Normal [facility] CT T-SPINE W RECON DATA -NBo n 10-03-2023 CT T-SPINE W RECON DATA -NB * * *Final Report* * * DATE OF EXAM: Oct 03 2023 2:13AM [facility] 0485 - CT T-SPINE W [...] changes about urinary bladder. Bones/Soft Tissues: Unremarkable. Stunt Man (topogram) images: Unremarkable. IMPRESSION: Chest: Bronchiectasis within [...] Correlate clinically Lumbar spine: No acute findings. Water Conservationist: TEMO Transcribe Date/Time: Oct 03 2023 2:21A Dictated by : CYNTHIA FELTON MD This examination was interpreted and the report reviewed and electronically signed by: CYNTHIA FELTON MD on Oct 03 2023 2:57AM EST [id number] Normal [facility] Calcium.ionized [Moles/Vol]o n 10-03-2023 Calcium.ionized (BldV) [Mass/Vol] 1.20 mmol/L Normal 1.08-1.30 [facility] Comment on above: Order Comment: Speci men Type: BLOOD SPECIMENOrdering Facility: [facility] Address: [address] [place] [address] Performed By: #### 1 995-0 ####[facility] LABORATORYCLIA [id number] [place] [address] [place] Calcium.ionized adjusted to pH 7.4 (Bld) [Moles/Vol] 1.21 mmol/L Normal 1.08-1.30 [facility] Comment on above: Order Comment: Speci men Type: BLOOD SPECIMENOrdering Facility: [facility] Address: [address] [place] [address] Performed By: #### 1 995-0 ####[facility] LABORATORYCLIA [id number] [place] [address] [place] ECHOon 10-03-2023 Echocardiography Echocardiography Rep ort: Transthoracic Echo [facility] Date of service: 10/03/2023 7:45:32 AM [facility] Ordering physician: GRZEGORZ BEEBE Indication: Frequent PVCs Technologist: Pat Pollock [facility] Interpreting physician: Lorenzo Salazar MD [...] deceleration time is 241 msec. TRICUSPID VALVE [place] tricuspid valve. There is mild (1+ - [...] * * Final * * * CC gate5 Medical Image : [id number] Normal [facility] ED NOTEon 10-03-2023 ED NOTE HNO ID: [id number] Author: RUFINA BAUM RN Service: Nursing Author Type: Registered Nurse Type: ED Notes Filed: 10/03/2023 01:48 Note Text: CT notified pt ready [facility] ED NOTE HNO ID: [id number] Author: RUFINA BAUM RN Service: Nursing Author Type: Registered Nurse Type: ED Notes Filed: 10/03/2023 01:23 Note Text: Report called to Kelsi on [address] [facility] HISTORY PHYSICALon HISTORY PHYSICAL HNO ID: [id number] Author: ZAMZAM WOODS MD Service: General Surgery Author Type: Physician Type: H&P Filed: 10/03/2023 14:05 Note Text: Surgical Intensive Care Unit Consult Note SERVICE DATE: 10/03/2023 SERVICE TIME: 12:13 AM REASON FOR CONSULT: Head bleed REQUESTING PHYSICIAN: Dr. woods Subjective 88 year old female with PMH HTN, depression, GERD, hypothyroidism, bradycardia (S/p pacemaker), prior cholecystectomy, STEPHON BSO presents from [employer] after GLF. Patient states she was throwing [...] Bronchiectasis without complication (HCC) 11/27/2009 Dr. Jaswant Luevano, pulmonary. DDD (degenerative disc disease), lumbar 02/16/2012 [...] [facility] HISTORY PHYSICAL HNO ID: [id number] Author: WEN GALICIA MD Service: General Surgery Author Type: Physician Type: H&P Filed: 10/03/2023 10:37 Note Text: TRAUMA SURGERY HANDP [facility] ARRIVAL DATE: 10/02/2023 ARRIVAL TIME: 10PM INJURY DATE: 10/02/2023 INJURY TIME: unknown Subjective 88 year old female with PMH HTN, depression, GERD, hypothyroidism, bradycardia (S/p pacemaker), prior cholecystectomy, STEPHON BSO presents from [employer] after GLF. Patient states she was throwing [...] COVID-19 original vaccine, age 12+ yr, monovalent ([address] [facility]) 01/23/2022 COVID-19 vaccine ([employer] IMS) 11/15/2020 08/15/2021 hepatitis B (HepB) vaccine, 3-dose [...] Bronchiectasis without complication (HCC) 11/27/2009 Dr. Jaswant Luevano, pulmonary. DDD (degenerative disc disease), lumbar 02/16/2012 [...] (PPP) [Relative time] 1.0 {INR} Normal 0.9-1.3 [facility] Comment on above: Order Comment: Speci men Type: BLOOD SPECIMENOrdering Facility: [facility] Address: [address] [place] [address] Result Comment: Rebecca min K Antagonist (VKA) Therapeutic Range: INR 2 to 3 (Target INR of 2.5) Note: For patients treated with VKA drugs, such as warfarin, the [place] 2012 Guideline recommends [...] WU, et al. Chest 2012, 141:7S-47S Marcia RA, et al. [facility] 2017, 70: 252-289 Performed By: #### 1 4979-9, 53337-6 ####[facility] LABORATORYCLIA [id number] [place] [address] [place] Magnesium SerPl-ncon 10-03 Magnesium [Mass/Vol] 2.1 mg/dL Normal 1.7-2.3 [facility] Comment on above: Order Comment: Speci men Type: BLOOD SPECIMENOrdering Facility: [facility] Address: [address] [place] [address] Performed By: #### 1 9123-9, 2777-1, 60755-6 ####[facility] HAUTECLIA [id number] [address] [place] PLATELET MAPPINGon 4 ADP INHIBITION 15.3 % Normal 0-17 [facility] Comment on above: Order Comment: Speci men Type: BLOOD SPECIMENOrdering Facility: [facility] Address: [address] [place] [address] Performed By: #### P LTMAP ####[facility] LABORATORYCLIA [id number] [address] STATES [facility] AR[facility] ACID INHIBITION 53.1 % High 0-11 [facility] Comment on above: Order Comment: Speci men Type: BLOOD SPECIMENOrdering Facility: [facility] Address: [address] [place] [address] Performed By: #### P LTMAP ####[facility] LABORATORYCLIA [id number] [address] Maximum amplitude activator F induced Resonance TEG (Bld) [Length] 20 mm High 2-19 [facility] Comment on above: Order Comment: Speci men Type: BLOOD SPECIMENOrdering Facility: [facility] Address: [address] [place] [address] Performed By: #### P LTMAP ####[facility] LABORATORYCLIA [id number] [address] Maximum amplitude kaolin induced after addition of heparinase Resonance TEG (Bld) [Length] 66.5 mm Normal 53-68 [facility] Comment on above: Order Comment: Speci men Type: BLOOD SPECIMENOrdering Facility: [facility] Address: [address] [place] [address] Performed By: #### P LTMAP ####[facility]ORATORYCLIA [id number] [address] Platelet aggregation ADP induced Qn (Bld) 59.4 mm Normal 45-69 [facility] Comment on above: Order Comment: Speci men Type: BLOOD SPECIMENOrdering Facility: [facility] Address: [address] [place] [address] Performed By: #### P LTMAP ####[facility] LABORATORYCLIA [id number] [address] Platelet aggregation arachidonate induced Qn (Bld) 41.8 mm Low 51-71 [facility] Comment on above: Order Comment: Speci men Type: BLOOD SPECIMENOrdering Facility: [facility] Address: [address] [place] [address] Performed By: #### P LTMAP ####[facility] LABORATORYCLIA [id number] [address] THROMBOGRAPH INTERP Normal [facility] Comment on above: Order Comment: Speckaley chavez Type: BLOOD SPECIMENOrdering Facility: [facility] Address: [address] [place] [address] Result Comment: The PlateletMapping Cartridge, is a [...] (ASPCLP). Performed By: #### P LTMAP ####[facility]ORATORYCLIA [id number] [address] OF [facility] PT panel Coag (PPP)on 2023 PT Coag (PPP) [Time] 10.2 s Normal 9.7-13.0 [facility] Comment on above: Order Comment: Vini men Type: BLOOD SPECIMENOrdering Facility: [facility] Address: [address] [place] [address] Performed By: #### 1 4979-9, 88855-9 ####[facility]ORATORYCLIA [id number] [place] [address] [place] Phosphate SerPl-mCncon 10-03 Phosphate [Mass/Vol] 1.7 mg/dL Low 2.7-4.8 [facility] Comment on above: Order Comment: Speci men Type: BLOOD SPECIMENOrdering Facility: [facility] Address: [address] [place] [address] Performed By: #### 1 9123-9, 2777-1, 76715-4 ####[facility]ORATORYCLIA [id number] [address] STAPH AUREUS PCRon 4 S. aureus and MRSA panel AQUILINO+probe (Nose) Normal Negative [facility] Comment on above: Order Comment: Speci men Type: SWAB OF INTERNAL NOSEOrdering Facility: [facility] Address: [address] [place] [address] Result Comment: Nega tive for Staphylococcus aureus by PCR. Negative for MRSA by PCR Performed By: #### S APCR ####[facility] LABORATORYCLIA [id number] [address] OF [place] THERAPY NTon 10-03-2023 THERAPY NT HNO ID: [id number] Author: RADHA ALVAREZ PT Service: Physical Therapy Author Type: Physical Therapist Type: Therapy (PT/OT/Speech/Resp) Filed: 10/03/2023 16:17 Note Text: Physical Therapy Evaluation Summary SERVICE DATE: 10/03/2023 SERVICE TIME: 1515 to 1540 ROOM: [place] [address] PT 6 Clicks Score: 18 DISCHARGE RECOMMENDATIONS [...] and mobility-other TREATMENT INTERVENTIONS Evaluation, Therapeutic Activity (86511) Timed Code Treatment (minutes): 8 Skilled Treatment Time (minutes): 25 $ Evaluation-Moderate (20472) Billed Units: 1 unit Therapeutic Activity (64998) Treatment Minutes: 8 $ Therapeutic Activity (21058) Billed Units: 1 unit Pt reported dizziness [...] Minimal Assistance Gait Device: Wheeled Walker General Deviations/Observations: Carolyne decreased, Flexed trunk posture, Step length [...] Functional Mobility Training, Balance Training SIGNATURE: Radha Alvarez PT PATIENT NAME: Geoffrey Nassar DATE: October 03, 2023 TIME: 4:14 PM Normal [facility] TOX SCREEN ROUT URon 024 Amphetamines Confirm (U) [Mass/Vol] Negative Normal Negative [facility] Comment on above: Order Comment: Speci men Type: URINE SPECIMENOrdering Facility: [facility] Address: [address] [place] [address] Result Comment: Cuto ff threshold at 1000 ng/mL. Performed By: #### U TOX2 ####[facility]ORATORYCLIA [id number] [address] OF [place] BARBITURATES, URINE Negative Normal Negative [facility] Comment on above: Order Comment: Speci men Type: URINE SPECIMENOrdering Facility: [facility] Address: [address] [place] [address] Result Comment: Cuto ff threshold at 200 ng/mL. Performed By: #### U TOX2 ####[facility] LABORATORYCLIA [id number] [place] [address] [place] BENZODIAZEPINES, UR Negative Normal Negative [facility] Comment on above: Order Comment: Speci men Type: URINE SPECIMENOrdering Facility: [facility] Address: [address] [place] [address] Result Comment: Cuto ff threshold at 200 ng/mL. Performed By: #### U TOX2 ####[facility]ATORYCLIA [id number] [place] [address] [place] Cannabinoids Screen Ql (U) Negative Normal Negative [facility] Comment on above: Order Comment: Speci men Type: URINE SPECIMENOrdering Facility: [facility] Address: [address] [place] [address] Result Comment: Cuto ff threshold at 50 ng/mL. Performed By: #### U TOX2 ####[facility]ATORYCLIA [id number] [address] [place] Cocaine Ql (U) Negative Normal Negative [facility] Comment on above: Order Comment: Speci men Type: URINE SPECIMENOrdering Facility: [facility] Address: [address] [place] [address] Result Comment: Cuto ff threshold at 300 ng/mL. Performed By: #### U TOX2 ####[facility]ATORYCLIA [id number] [address] [place] Ethanol (U) [Mass/Vol] <11 Normal <11 [facility] Comment on above: Order Comment: Speci men Type: URINE SPECIMENOrdering Facility: [facility] Address: [address] [place] [address] Performed By: #### U TOX2 ####[facility]ORATORYCLIA [id number] [address] Opiates Screen Ql (U) Negative Normal Negative [facility] Comment on above: Order Comment: Speci men Type: URINE SPECIMENOrdering Facility: [facility] Address: [address] [place] [address] Result Comment: Cuto ff threshold at 300 ng/mL. Performed By: #### U TOX2 ####[facility]ORATORYCLIA [id number] [address] oxyCODONE cutoff Screen (U) [Mass/Vol] Negative Normal Negative [facility] Comment on above: Order Comment: Speci men Type: URINE SPECIMENOrdering Facility: [facility] Address: [address] [place] [address] Result Comment: Cuto ff threshold at 100 ng/mL. Performed By: #### U TOX2 ####[facility]ORATORYCLIA [id number] [address] Phencyclidine Ql (U) Negative Normal Negative [facility] Comment on above: Order Comment: Speci men Type: URINE SPECIMENOrdering Facility: [facility] Address: [address] [place] [address] Result Comment: Cuto ff threshold at 25 ng/mL. Performed By: #### U TOX2 ####[facility]ATORYCLIA [id number] [address] [place] aPTT PPPon 10-03-2023 aPTT Coag (PPP) [Time] 27.6 s Normal 23.0-32.4 [facility] Comment on above: Order Comment: Speci men Type: BLOOD SPECIMENOrdering Facility: [facility] Address: [address] [id number] Performed By: #### 1 4979-9, 35101-6 ####[facility] LABORATORYCLIA [id number] [place] [address] [place] Absolute lymphocyte countOrd ered By: Janett Her on 10-02-2023 Lymphocytes Auto (Unsp spec) [#/Vol] 2.01 10*3/uL 0.83-4.51 [facility] Activated partial thrombopla stin time (aPTT) in platelet poor plasma by coagulation aOrdered By: Janett Her on 10-02-2023 aPTT Coag (PPP) [Time] 26.1 s 24.1-36.2 [facility] Automated lymphocyte count a s percentage of total leukocytesOrdered By: Janett Her on 10-02-2023 Lymphocytes/100 WBC Auto (Unsp spec) 19.6 % 19-41 [facility] Basophil percentageOrdered B y: Janett Her on 10-02-2023 Basophils/100 WBC (Bld) 0.5 % 0-1 [facility] Chloride [Moles/Vol] 107 mmol/L 98-107 [facility] Eosinophils/100 WBC (Bld) 3.9 % 0-5 [facility] Glucose [Mass/Vol] 101 mg/dL 74-106 [facility] Comment on above: Fasting Glucose resu lt from 100 to 125 mg/dL suggests IMPAIRED HOMEOSTASIS per A.D.A. criteria. Hemoglobin (Bld) [Mass/Vol] 12.9 g/dL 12.0-15.0 [facility] Monocytes/100 WBC (Bld) 9.4 % 0-10 [facility] Neutrophils (Bld) [#/Vol] 6.8 10*3/uL 2.0-7.7 [facility] Neutrophils/100 WBC (Bld) 65.9 % 47-70 [facility] Potassium [Moles/Vol] 4.4 mmol/L 3.5-5.1 [facility] Sodium [Moles/Vol] 138 mmol/L 136-145 [facility] WBC (Bld) [#/Vol] 10.3 10*3/uL 4.4-11.0 [facility] Determination of erythrocyte mean corpuscular volume (MCV)Ordered By: Janett Her on 10-02-2023 MCV (RBC) [Entitic vol] 93.2 fL 81-99 [facility] ED NOTEon 10-02-2023 ED NOTE HNO ID: [id number] Author: RHONDA JOHANSEN, RN Service: ? Author Type: Registered Nurse Type: ED Notes Filed: 10/02/2023 22:40 Note Text: Bed: 06-ED Expected date: Expected time: Means of arrival: Comments: [place]; Head bleed Normal [facility] ED PROV NOTEon 10-02-2023 ED PROV NOTE HNO ID: [id number] Author: GRZEGORZ BEEBE DO Service: Emergency Medicine [facility] HNO ID: [id number] Author: GRZEGORZ BEEBE DO Service: Emergency Medicine Author Type: Physician Type: ED Provider Notes Filed: 10/05/2023 23:47 Note Text: ED Provider Note Patient Name: Geoffrey Nassar : 1935 SERVICE DATE: 10/02/23 History Patient presents with: Head Injury: Patient arrives via EMS as a transfer from [employer] for known head bleed. States she lost [...] the emergency department as a transfer from [employer] for a known subarachnoid hemorrhage. Patient is answering questions appropriately and cooperative on my examination. She states that she was walking in her driveway, reached to apple picker the twig, and slipped and fell. [...] Bronchiectasis without complication (HCC) 11/27/2009 Dr. Jaswant Luevano, pulmonary. DDD (degenerative disc disease), lumbar 02/16/2012 [...] for headaches. Negative for dizziness and weakness. Psychiatric/Behavioral: Negative for behavioral problems and suicidal ideas. Physical Exam Vitals [10/02/23 2245] B (more content not included)... Normal [facility] Erythrocyte distribution wid th ratioOrdered By: Janett Her on 10-02-2023 Erythrocyte distribution width (RBC) [Ratio] 14.2 % 11.6-14.6 [facility] Erythrocyte distribution wid th standard deviationOrdered By: Janett Her on 10-02-2023 Erythrocyte distribution width (RBC) [Entitic vol] 48.6 fL 35.1-43.9 [facility] Hematocrit Auto (Bld) [Volum e fraction]Ordered By: Janett Her on 10-02-2023 Hematocrit (Bld) [Volume fraction] 41.3 % 37-47 [facility] Immature granulocytes/100 WB C Auto (Bld)Ordered By: Janett Her on 10-02-2023 Immature granulocytes/100 WBC (Bld) 0.700 % 0.0-0.9 [facility] Comment on above: IG% - Immature Granu locytes (promyelocytes, myelocytes and metamyelocytes) > 1% indicates that a LEFT SHIFT is Present. Laboratory - Chemistry and C hemistry - challengeOrdered By: Janett Her on 10-02-2023 CO2 [Moles/Vol] 29.0 mmol/L 21.0-32.0 [facility] Urea nitrogen/Creatinine [Mass ratio] 26.2 mg/mg 10-20 [facility] Laboratory - CoagulationOrde red By: Janett Her on 10-02-2023 PT Coag (PPP) [Time] 12.8 s 11.7-14.9 [facility] Laboratory - Hematology and Cell countsOrdered By: Janett Her on 10-02-2023 MCH (RBC) [Entitic mass] 29.1 pg 27.0-32.0 [facility] MCHC (RBC) [Mass/Vol] 31.2 g/dL 32-36 [facility] Nucleated RBC/100 WBC (Bld) [Ratio] 0 % 0-5 [facility] Platelets (Bld) [#/Vol] 228 10*3/uL 150-450 [facility] No Panel InformationOrdered By: Janett Her on 10-02-2023 Estimated GFR (MDRD) Amer 78 mL/min >60 [facility] Comment on above: GFR Calc Estimated GFR (MDRD) Non-Af Amer 65 mL/min >60 [facility] Comment on above: Non- GFR Calc Platelet mean volume Jovan-Ec ker (Bld) [Entitic vol]Ordered By: Janett Her on 10-02-2023 Platelet mean volume (Bld) [Entitic vol] 9.9 fL 6.2-12.0 [facility] RBC Auto (Bld) [#/Vol]Ordere d By: Janett Her on 10-02-2023 RBC (Bld) [#/Vol] 4.43 10*6/uL 4.2-5.4 [facility] Serum or plasma calcium jose urement (mass/volume)Ordered By: Janett Her on 10-02-2023 Calcium [Mass/Vol] 9.5 mg/dL 8.5-10.1 [facility] Serum or plasma creatinine m easurement (mass/volume)Ordered By: Janett Her on 10-02-2023 Creatinine [Mass/Vol] 0.88 mg/dL 0.55-1.02 [facility] Comment on above: The validity of the calculated GFR & GFRAA in patients over 70 years has not been determined. Clinical correlation is essential. Serum or plasma urea nitroge n measurement (mass/volume)Ordered By: Janett Her on 10-02-2023 Urea nitrogen [Mass/Vol] 23 mg/dL 7-18 [facility] Thin prep Papanicolaou smear with manual screeningOrdered By: Janett Her on 10-02-2023 Thin prep Papanicolaou smear with manual screening 2 5-15 [facility] SOPHIE DIAG W ALEISHA LEFTon 08-04 [facility] SOPHIE SCREENINGon 07-07-2023 [facility] Absolute lymphocyte countOrd ered By: Amanda Daugherty on 05-05-2023 Lymphocytes Auto (Unsp spec) [#/Vol] 1.71 10*3/uL 0.83-4.51 [facility] Basophil percentageOrdered B y: Amanda Daugherty on 05-05-2023 Basophils/100 WBC (Bld) 0.7 % 0-1 [facility] Bilirubin [Mass/Vol] 0.20 mg/dL 0.20-1.00 [facility] Comment on above: For patients on eltr ombopag therapy, use of Dimension [place] TBIL is not recommended. Chloride [Moles/Vol] 107 mmol/L 98-107 [facility] Eosinophils/100 WBC (Bld) 6.7 % 0-5 [facility] Glucose [Mass/Vol] 88 mg/dL 74-106 [facility] Neutrophils (Bld) [#/Vol] 4.3 10*3/uL 2.0-7.7 [facility] Neutrophils/100 WBC (Bld) 57.4 % 47-70 [facility] Potassium [Moles/Vol] 4.9 mmol/L 3.5-5.1 [facility] Protein [Mass/Vol] 7.1 g/dL 6.4-8.2 [facility] Sodium [Moles/Vol] 140 mmol/L 136-145 [facility] WBC (Bld) [#/Vol] 7.5 10*3/uL 4.4-11.0 [facility] Blood erythrocytes count (nu mber/volume)Ordered By: Amanda Daugherty on 05-05-2023 RBC (Bld) [#/Vol] 4.52 10*6/uL 4.2-5.4 [facility] Blood hemoglobin measurement (mass/volume)Ordered By: Amanda Daugherty on 05-05-2023 Hemoglobin (Bld) [Mass/Vol] 13.1 g/dL 12.0-15.0 [facility] Blood lymphocytes/100 leukoc ytesOrdered By: Amanda Daugherty on 05-05-2023 Lymphocytes/100 WBC (Bld) 22.8 % 19-41 [facility] Blood monocytes/100 leukocyt esOrdered By: Amanda Daugherty on 05-05-2023 Monocytes/100 WBC (Bld) 11.7 % 0-10 [facility] Blood platelet mean volumeOr dered By: Amanda Daugherty on 05-05-2023 Platelet mean volume (Bld) [Entitic vol] 10.4 fL 6.2-12.0 [facility] Determination of erythrocyte mean corpuscular volume (MCV)Ordered By: Amanda Daugherty on 05-05-2023 MCV (RBC) [Entitic vol] 95.1 fL 81-99 [facility] Hematocrit Auto (Bld) [Volum e fraction]Ordered By: Amanda Daugherty on 05-05-2023 Hematocrit (Bld) [Volume fraction] 43.0 % 37-47 [facility] Laboratory - Chemistry and C hemistry - challengeOrdered By: Amanda Daugherty on 05-05-2023 ALP [Catalytic activity/Vol] 128 U/L 45-117 [facility] ALT [Catalytic activity/Vol] 17 U/L 13-56 [facility] CO2 [Moles/Vol] 29.0 mmol/L 21.0-32.0 [facility] Free T4 [Mass/Vol] 1.01 ng/dL 0.76-1.46 [facility] Globulin (S) [Mass/Vol] 3.8 g/dL 2.2-4.2 [facility] Urea nitrogen/Creatinine [Mass ratio] 22.6 mg/mg 10-20 [facility] - Hematology and Cell countsOrdered By: Amanda Daugherty on 05-05-2023 Erythrocyte distribution width (RBC) [Entitic vol] 49.0 fL 35.1-43.9 [facility] Erythrocyte distribution width (RBC) [Ratio] 14.1 % 11.6-14.6 [facility] Immature granulocytes/100 WBC (Bld) 0.700 % 0.0-0.9 [facility] Comment on above: IG% - Immature Granu locytes (promyelocytes, myelocytes and metamyelocytes) > 1% indicates that a LEFT SHIFT is Present. MCH (RBC) [Entitic mass] 29.0 pg 27.0-32.0 [facility] Nucleated RBC/100 WBC (Bld) [Ratio] 0 % 0-5 [facility] MCHC Auto (RBC) [Mass/Vol]Or dered By: Amanda Daugherty on 05-05-2023 MCHC (RBC) [Mass/Vol] 30.5 g/dL 32-36 [facility] No Panel InformationOrdered By: Amanda Daugherty on 05-05-2023 Estimated GFR (MDRD) Amer 74 mL/min >60 [facility] Comment on above: GFR Calc Estimated GFR (MDRD) Non-Af Amer 61 mL/min >60 [facility] Comment on above: Non- GFR Calc Free Triiodothyronine (T3) pg/dL 1.8 pg/mL 2.18-3.98 [facility] Thyroid Stimulating Hormone (TSH) 0.33 uIU/mL 0.358-3.74 [facility] Vitamin D 25-Hydroxy 68.6 ng/mL [facility] Comment on above: Vitamin D 25(OH) Sta tus Range Deficiency <20 ng/mL (50nmol/L) Insufficiency 20 - 30 ng/mL (50 - 75 nmol/L) Sufficiency 30 - 100 ng/mL (75 - 250 nmol/L) Toxicity >100 ng/mL (>250 nmol/L) Platelets bldOrdered By: Martín Daugherty on 05-05-2023 Platelets (Bld) [#/Vol] 234 10*3/uL 150-450 [facility] Serum or plasma albumin jose urement (mass/volume)Ordered By: Amanda Daugherty on 05-05-2023 Albumin [Mass/Vol] 3.3 g/dL 3.2-5.0 [facility] Serum or plasma albumin/glob ulin mass ratioOrdered By: Amanda Daugherty on 05-05-2023 Albumin/Globulin [Mass ratio] 0.9 {ratio} 0.9-2.4 [facility] Serum or plasma calcium jose urement (mass/volume)Ordered By: Amanda Daugherty on 05-05-2023 Calcium [Mass/Vol] 9.5 mg/dL 8.5-10.1 [facility] Serum or plasma creatinine m easurement (mass/volume)Ordered By: Amanda Daugherty on 05-05-2023 Creatinine [Mass/Vol] 0.93 mg/dL 0.55-1.02 [facility] Comment on above: The validity of the calculated GFR & GFRAA in patients over 70 years has not been determined. Clinical correlation is essential. Serum or plasma urea nitroge n measurement (mass/volume)Ordered By: Amanda Daugherty on 05-05-2023 Urea nitrogen [Mass/Vol] 21 mg/dL 7-18 [facility] Thin prep Papanicolaou smear with manual screeningOrdered By: Amanda Daugherty on 05-05-2023 Thin prep Papanicolaou smear with manual screening 19 U/L 15-37 [facility] Thin prep Papanicolaou smear with manual screening 4 5-15 [facility] Basophil percentageon 2021 Basophil percentage < 0.9 mg/dL 0.55-1.02 [facility] Work Phone: No Panel Informationon 08-28 Bedside Estimated GFR (eGFR) > 60.0000 mL/min >60 [facility] Work Phone: UA DIP, URINE (POC)on 2021 BILIRUBIN UA (POCT) Negative Negative [facility] CLARITY UA (POCT) Cloudy [facility] COLOR UA (POCT) Other [facility] GLUCOSE UA (POCT) Negative Negative mg/dL [facility] HEMOGLOBIN/BLOOD UA (POCT) Trace-intact Abnormal Negative [facility] KETONE UA (POCT) Negative Negative mg/dL [facility] LEUKOCYTES UA (POCT) Moderate Abnormal Negative [facility] NITRITE UA (POCT) Positive Abnormal Negative [facility] PH UA (POCT) 5.5 4.5 - 8.0 [facility] Protein Ql (U) 30 mg/dL Abnormal Negative mg/dL [facility] SPECIFIC GRAVITY UA (POCT) 1.020 1.005 - 1.030 [facility] UROBILINOGEN UA (POCT) 0.2 E.U./dL Diamond l E.U./dL [facility] XR CHEST 2V FRONTAL/LATon [facility] XR Chest PA and Lateralon IMPRESSION: No acute radiographic abnormality. Water Conservationist: TEMO Transcribe Date/Time: Jan 23 2022 3:39P Dictated by : MARY HERORN MD This examination was interpreted and the report reviewed and electronically signed by: MARY HERRON MD on Jan 23 2022 3:41PM EST ZZZ_DO_NOT _USE_DIVIS ION OF RADIOLOGY * * *Final Report* * [...] cardiomediastinal silhouette. Bones and soft tissues: Unremarkable. ZZZ_DO_NOT _USE_DIVIS ION OF RADIOLOGY Provider, Charles Gutierrez - 01/23/2022 * * *Final Report* * [...] Unremarkable. IMPRESSION IMPRESSION: No acute radiographic abnormality. Water Conservationist: PSCB Transcribe Date/Time: Jan 23 2022 3:39P Dictated by : MARY HERRON MD This examination was interpreted and the report reviewed and electronically signed by: MARY HERRON MD on Jan 23 2022 3:41PM EST [facility] Radiology Study observation (narrative) [facility] XR Chest PA and LateralOrder ed By: [facility] Provider on 01-23-2022 [facility] Office Visit: acute- worseni ng coughon 07-27-2017 Alcoholism counseling (procedure) no Invalid Interpretation Code [facility] Work Phone: Dietary management education, guidance, and counseling (procedure) yes Invalid Interpretation Code [facility] Work Phone: Documentation of current medications (procedure) Done Invalid Interpretation Code [facility] Work Phone: Tobacco smoking status NHIS Never Invalid Interpretation Code [facility] Work Phone: Tobacco use [facility] Former smoker Invalid Interpretation Code [facility] Work Phone: Office Visit: HX PE, asthma, bronchiectasis & asthmaon 07-24-2017 Alcoholism counseling (procedure) no Invalid Interpretation Code [facility] Work Phone: Dietary management education, guidance, and counseling (procedure) yes Invalid Interpretation Code [facility] Work Phone: Documentation of current medications (procedure) Done Invalid Interpretation Code [facility] Work Phone: Tobacco smoking status NHIS Never Invalid Interpretation Code [facility] Work Phone: Tobacco use [facility] Former smoker Invalid Interpretation Code [facility] Work Phone: Office Visit: hiatal herniao n 05-05-2017 Fall risk assessment No Invalid Interpretation Code [facility] Work Phone: Lab Report: Thyroid Stim Hor dada (TSH)on 03-05-2017 Thyroid stimulating hormone (TSH) 0.39 u[iU]/mL Invalid Interpretation Code 0.358-3.74 [facility] Work Phone: Rx Refill: eRx Request for F LUTICASONE PROPIONATE 50 MCG/ACT Suspensionon 02-05-2017 [id number]`FLUTICASONE PROPIONATE 50 MCG/ACT Suspension```48 Gram`90`USE 2 SPRAYS IN EACH NOSTRIL EVERY DAY``4`0`11/27/2016`No date sent`[facility]*`[id number] `[id number]`FLUTICASONE PROPIONATE 50 MCG/ACT Suspension Quantity: 48 Gram Instructions: USE 2 SPRAYS IN EACH NOSTRIL EVERY DAY [facility] Work Phone: No Panel Information [facility] Vital Signs Date Time Vital Sign Value Performing Clinician Facility 04-20-2025 13:30-0400 Body temperature 98 [degF] Dr. Ken Whelan MD Work Phone: [facility] 04-20-2025 13:30-0400 Diastolic blood pressure 58 mm[Hg] Dr. Ken Whelan MD Work Phone: [facility] 04-20-2025 13:30-0400 Heart rate 63 /min Dr. Ken Whelan MD Work Phone: 4(430)850-019009 [place] [address] 04-20-2025 13:30-0400 Respiratory rate 18 /min Dr. Ken Whelan MD Work Phone: 7(552)750-866109 [place] [address] 04-20-2025 13:30-0400 SaO2% (BldA) [Mass fraction] 92 % Dr. Ken Whelan MD Work Phone: 8(839)949-980609 [place] [address] 04-20-2025 13:30-0400 Systolic blood pressure 96 mm[Hg] Dr. Ken Whelan MD Work Phone: 0(476)238-484509 [place] [address] 04-20-2025 09:20-0400 Inhaled oxygen flow rate 2 L/min Dr. Ken Whelan MD Work Phone: 3(922)482-268709 [place] [address] 04-20-2025 03:50-0400 Body mass index (BMI) [Ratio] 27.3 kg/m2 Dr. Ken Whelan MD Work Phone: 7(278)068-094509 [place] [address] 04-20-2025 03:50-0400 Body weight 67.[address] Ken Whelan MD Work Phone: 2(164)675-609409 [place] [address] 04-19-2025 20:35-0400 Heart rate 60 /min Dr. Ken Whelan MD Work Phone: 7(561)266-047009 [place] [address] 04-19-2025 20:35-0400 Inhaled oxygen flow rate 2 L/min Dr. Ken Whelan MD Work Phone: 0(920)293-992509 [place] [address] 04-19-2025 20:35-0400 Respiratory rate 16 /min Dr. Ken Whelan MD Work Phone: 7(533)298-397809 [place] [address] 04-19-2025 20:35-0400 SaO2% (BldA) [Mass fraction] 94 % Dr. Ken Whelan MD Work Phone: 5(760)908-376709 [place] [address] 04-19-2025 20:29-0400 Body temperature 96.7 [degF] Dr. Ken Whelan MD Work Phone: 9(943)795-043909 [place] [address] 04-19-2025 20:29-0400 Diastolic blood pressure 59 mm[Hg] Dr. Ken Whelan MD Work Phone: 8(411)347-612609 [place] [address] 04-19-2025 20:29-0400 Systolic blood pressure 113 mm[Hg] Dr. Ken Whelan MD Work Phone: 5(376)862-179209 [place] [address] 04-19-2025 05:13-0400 Body mass index (BMI) [Ratio] 26.6 kg/m2 Dr. Ken Whelan MD Work Phone: 9(519)792-997009 [place] [address] 04-19-2025 05:13-0400 Body weight 65.[address] Ken Whelan MD Work Phone: 5(178)386-361409 [place] [address] 04-17-2025 17:05-0400 Body temperature 97.7 [degF] Dr. Ken Whelan MD Work Phone: 2(405)449-399609 [place] [address] 04-17-2025 17:05-0400 Diastolic blood pressure 69 mm[Hg] Dr. Ken Whelan MD Work Phone: 3(278)475-699209 [place] [address] 04-17-2025 17:05-0400 Heart rate 59 /min Dr. Ken Whelan MD Work Phone: 0(680)763-238109 [place] [address] 04-17-2025 17:05-0400 Respiratory rate 17 /min Dr. Ken Whelan MD Work Phone: 7(734)036-754209 [place] [address] 04-17-2025 17:05-0400 SaO2% (BldA) [Mass fraction] 94 % Dr. Ken Whelan MD Work Phone: 0(052)352-502309 [place] [address] 04-17-2025 17:05-0400 Systolic blood pressure 121 mm[Hg] Dr. Ken Whelan MD Work Phone: 9(509)077-451109 [place] [address] 04-17-2025 03:28-0400 Body mass index (BMI) [Ratio] 29.5 kg/m2 Dr. Ken Whelan MD Work Phone: 4(314)473-795209 [place] [address] 04-17-2025 03:28-0400 Body weight 73.[address] Ken Whelan MD Work Phone: 7(631)025-707809 [place] [address] 04-17-2025 02:03-0400 Body height 157.[address] Ken Whelan MD Work Phone: 6(220)299-684409 [place] [address] 04-17-2025 00:54-0400 Body temperature 98.3 [degF] Dr. Ken Whelan MD Work Phone: 1(203)457-237809 [place] [address] 04-17-2025 00:54-0400 Diastolic blood pressure 83 mm[Hg] Dr. Ken Whelan MD Work Phone: 6(423)049-411609 [place] [address] 04-17-2025 00:54-0400 Heart rate 63 /min Dr. Ken Whelan MD Work Phone: 0(781)961-740609 [place] [address] 04-17-2025 00:54-0400 Respiratory rate 22 /min Dr. Ken Whelan MD Work Phone: 1(862)172-061309 [place] [address] 04-17-2025 00:54-0400 SaO2% (BldA) [Mass fraction] 95 % Dr. Ken Whelan MD Work Phone: 1(523)452-546609 [place] [address] 04-17-2025 00:54-0400 Systolic blood pressure 153 mm[Hg] Dr. Ken Whelan MD Work Phone: 4(193)312-328409 [place] [address] 04-16-2025 18:46-0400 Body height 157.[address] Ken Whelan MD Work Phone: 4(859)063-549309 [place] [address] 04-16-2025 18:46-0400 Body mass index (BMI) [Ratio] 28.7 kg/m2 Dr. Ken Whelan MD Work Phone: 6(718)961-679409 [place] [address] 04-16-2025 18:46-0400 Body weight 71.[address] Ken Whelan MD Work Phone: 5(527)711-960909 [place] [address] 04-07-2025 10:28-0400 Body height 157.5 cm Ashely Luevano MD Work Phone: 0(580)876-515613 [place] [address] 04-07-2025 10:28-0400 Body mass index (BMI) [Ratio] 28.17 kg/m2 Ashely Luevano MD Work Phone: [facility] 04-07-2025 10:28-0400 Body weight 69.85 kg Ashely Luevano MD Work Phone: [facility] 04-07-2025 10:28-0400 Diastolic blood pressure 78 mm[Hg] Ashely Luevano MD Work Phone: [facility] 04-07-2025 10:28-0400 Heart rate 60 /min Ashely Luevano MD Work Phone: [facility] 04-07-2025 10:28-0400 Respiratory rate 16 /min Ashely Luevano MD Work Phone: [facility] 04-07-2025 10:28-0400 SaO2% (BldA) [Mass fraction] 92 % Ashely Luevano MD Work Phone: [facility] 04-07-2025 10:28-0400 Systolic blood pressure 128 mm[Hg] Ashely Luevano MD Work Phone: 1(420)288-235713 [place] [address] 03-31-2025 13:32-0400 Body height 157.[address] Ken Whelan MD Work Phone: 5(911)201-695019 [place] [address] 03-31-2025 13:32-0400 Body mass index (BMI) [Ratio] 28 kg/m2 Dr. Ken Whelan MD Work Phone: [facility] 03-31-2025 13:32-0400 Body weight 69.[address] Ken Whelan MD Work Phone: 9(858)754-706419 [place] [address] 03-31-2025 13:32-0400 Diastolic blood pressure 60 mm[Hg] Dr. Ken Whelan MD Work Phone: 8(355)520-068919 [place] [address] 03-31-2025 13:32-0400 Heart rate 60 /min Dr. Ken Whelan MD Work Phone: 1(888)649-911419 [place] [address] 03-31-2025 13:32-0400 Systolic blood pressure 98 mm[Hg] Dr. Ken Whelan MD Work Phone: [facility] 03-28-2025 16:53-0400 Body mass index (BMI) [Ratio] 27.36 kg/m2 Jorge Jordan APRN.[employer] Work Phone: [facility] 03-28-2025 16:53-0400 Body temperature 97.39 [degF] Jorge Jordan APRN.[employer] Work Phone: [facility] 03-28-2025 16:53-0400 Body weight 70.3 kg Jorge Jordan APRN.[employer] Work Phone: [facility] 03-28-2025 16:53-0400 Diastolic blood pressure 78 mm[Hg] Jorge Jordan APRN.[employer] Work Phone: [facility] 03-28-2025 16:53-0400 Heart rate 60 /min Jorge Jordan APRN.[employer] Work Phone: [facility] 03-28-2025 16:53-0400 Respiratory rate 18 /min Jorge Jordan APRN.[employer] Work Phone: [facility] 03-28-2025 16:53-0400 SaO2% (BldA) [Mass fraction] 95 % Jorge Jordan APRN.[employer] Work Phone: [facility] 03-28-2025 16:53-0400 Systolic blood pressure 122 mm[Hg] Jorge Jordan APRN.[employer] Work Phone: [facility] 03-23-2025 13:14-0400 Body mass index (BMI) [Ratio] 27.55 kg/m2 Dian Rodas MD Work Phone: [facility] 03-23-2025 13:14-0400 Body weight 70.8 kg Dian Rodas MD Work Phone: [facility] 03-23-2025 13:14-0400 Diastolic blood pressure 77 mm[Hg] Dian Rodas MD Work Phone: [facility] 03-23-2025 13:14-0400 Heart rate 60 /min Dian Rodas MD Work Phone: [facility] 03-23-2025 13:14-0400 SaO2% (BldA) [Mass fraction] 97 % Dian Rodas MD Work Phone: [facility] 03-23-2025 13:14-0400 Systolic blood pressure 126 mm[Hg] Dian Rodas MD Work Phone: [facility] 03-02-2025 11:49-0400 Body mass index (BMI) [Ratio] 27.9 kg/m2 Ken Whelan MD Work Phone: [facility] 03-02-2025 11:49-0400 Body weight 71.7 kg Ken Whelan MD Work Phone: [facility] 03-02-2025 11:49-0400 Diastolic blood pressure 68 mm[Hg] Ken Whelan MD Work Phone: [facility] 03-02-2025 11:49-0400 Heart rate 64 /min Ken Whelan MD Work Phone: [facility] 03-02-2025 11:49-0400 Respiratory rate 20 /min Ken Whelan MD Work Phone: [facility] 03-02-2025 11:49-0400 Systolic blood pressure 102 mm[Hg] Ken Whelan MD Work Phone: [facility] 02-15-2025 17:49-0400 Body temperature 98.2 [degF] Dr. Ken Whelan MD Work Phone: [facility] 02-15-2025 17:49-0400 Diastolic blood pressure 68 mm[Hg] Dr. Ken Whelan MD Work Phone: [facility] 02-15-2025 17:49-0400 Heart rate 61 /min Dr. Ken Whelan MD Work Phone: [facility] 02-15-2025 17:49-0400 Respiratory rate 18 /min Dr. Ken Whelan MD Work Phone: [facility] 02-15-2025 17:49-0400 SaO2% (BldA) [Mass fraction] 96 % Dr. Ken Whelan MD Work Phone: [facility] 02-15-2025 17:49-0400 Systolic blood pressure 116 mm[Hg] Dr. Ken Whelan MD Work Phone: [facility] 02-15-2025 16:03-0400 Body mass index (BMI) [Ratio] 31.1 kg/m2 Dr. Ken Whelan MD Work Phone: [facility] 02-15-2025 16:03-0400 Body weight 77.[address] Ken Whelan MD Work Phone: [facility] 02-15-2025 14:14-0400 Body height 157.[address] Ken Whelan MD Work Phone: [facility] 02-03-2025 14:51-0400 Body height 160.3 cm Pulm Wstr Work Phone: [facility] 02-03-2025 14:51-0400 Body mass index (BMI) [Ratio] 28.6 kg/m2 Pul[facility]str Work Phone: [facility] 02-03-2025 14:51-0400 Body weight 73.48 kg Pulm [facility]str Work Phone: [facility] 02-03-2025 14:51-0400 Heart rate 74 /min Pulm [facility]str Work Phone: [facility] 02-03-2025 14:51-0400 Respiratory rate 14 /min Pulm [facility]str Work Phone: [facility] 02-02-2025 15:40-0400 Body mass index (BMI) [Ratio] 29.48 kg/m2 Ken Whelan MD Work Phone: [facility] 02-02-2025 15:40-0400 Body weight 73.1 kg Ken Whelan MD Work Phone: [facility] 02-02-2025 15:40-0400 Diastolic blood pressure 74 mm[Hg] Ken Whelan MD Work Phone: [facility] 02-02-2025 15:40-0400 Heart rate 60 /min Ken Whelan MD Work Phone: [facility] 02-02-2025 15:40-0400 Respiratory rate 18 /min Ken Whelan MD Work Phone: [facility] 02-02-2025 15:40-0400 Systolic blood pressure 104 mm[Hg] Ken Whelan MD Work Phone: [facility] 01-11-2025 15:28-0400 Diastolic blood pressure 56 mm[Hg] Ailyn Spanower MANAGER PLAN.[employer] Work Phone: [facility] 01-11-2025 15:28-0400 Heart rate 60 /min Ailyn Spanower MANAGER PLAN.[employer] Work Phone: [facility] 01-11-2025 15:28-0400 Respiratory rate 16 /min Ailyn Spanower MANAGER PLAN.[employer] Work Phone: [facility] 01-11-2025 15:28-0400 SaO2% (BldA) [Mass fraction] 95 % Ailyn Spanower MANAGER PLAN.[employer] Work Phone: [facility] 01-11-2025 15:28-0400 Systolic blood pressure 90 mm[Hg] Ailyn Spanower MANAGER PLAN.[employer] Work Phone: [facility] 01-05-2025 15:38-0400 Body height 157.5 cm Ken Whelan MD Work Phone: [facility] 01-05-2025 15:38-0400 Body mass index (BMI) [Ratio] 30.08 kg/m2 Ken Whelan MD Work Phone: [facility] 01-05-2025 15:38-0400 Body weight 74.6 kg Ken Whelan MD Work Phone: [facility] 01-05-2025 15:38-0400 Diastolic blood pressure 66 mm[Hg] Ken Whelan MD Work Phone: [facility] 01-05-2025 15:38-0400 Heart rate 60 /min Ken Whelan MD Work Phone: [facility] 01-05-2025 15:38-0400 Respiratory rate 18 /min Ken Whelan MD Work Phone: [facility] 01-05-2025 15:38-0400 Systolic blood pressure 118 mm[Hg] Ken Whelan MD Work Phone: [facility] 12-14-2024 14:03-0400 Diastolic blood pressure 72 mm[Hg] Cami Mars MD Work Phone: [facility] 12-14-2024 14:03-0400 Heart rate 72 /min Cami Mars MD Work Phone: [facility] 12-14-2024 14:03-0400 Respiratory rate 16 /min Cami Mars MD Work Phone: [facility] 12-14-2024 14:03-0400 SaO2% (BldA) [Mass fraction] 96 % Cami Mars MD Work Phone: [facility] 12-14-2024 14:03-0400 Systolic blood pressure 116 mm[Hg] Cami Mars MD Work Phone: [facility] 11-24-2024 17:54-0400 Body mass index (BMI) [Ratio] 31.01 kg/m2 Ken Whelan MD Work Phone: [facility] 11-24-2024 17:54-0400 Body weight 76.9 kg Ken Whelan MD Work Phone: [facility] 11-24-2024 17:54-0400 Diastolic blood pressure 59 mm[Hg] Ken Whelan MD Work Phone: [facility] 11-24-2024 17:54-0400 Heart rate 75 /min Ken Whelan MD Work Phone: [facility] 11-24-2024 17:54-0400 Respiratory rate 16 /min Ken Whelan MD Work Phone: [facility] 11-24-2024 17:54-0400 Systolic blood pressure 116 mm[Hg] Ken Whelan MD Work Phone: [facility] 10-20-2024 13:29-0500 Body mass index (BMI) [Ratio] 30.73 kg/m2 Ashely Luevano MD Work Phone: [facility] 10-20-2024 13:29-0500 Body weight 76.2 kg Ashely Luevano MD Work Phone: [facility] 10-20-2024 13:29-0500 Diastolic blood pressure 80 mm[Hg] Ashely Luveano MD Work Phone: [facility] 10-20-2024 13:29-0500 Heart rate 60 /min Ashely Luevano MD Work Phone: [facility] 10-20-2024 13:29-0500 Respiratory rate 14 /min Ashely Luevano MD Work Phone: [facility] 10-20-2024 13:29-0500 SaO2% (BldA) [Mass fraction] 96 % Ashely Luevano MD Work Phone: [facility] 10-20-2024 13:29-0500 Systolic blood pressure 126 mm[Hg] Ashely Luevano MD Work Phone: [facility] 10-11-2024 14:40-0500 Body mass index (BMI) [Ratio] 30.85 kg/m2 Dia Nixon APRN.[employer] Work Phone: [facility] 10-11-2024 14:40-0500 Body weight 76.5 kg Dia Nixon APRN.[employer] Work Phone: [facility] 10-11-2024 14:40-0500 Diastolic blood pressure 72 mm[Hg] Dia Hussain MANAGER PLAN.[employer] Work Phone: [facility] 10-11-2024 14:40-0500 Heart rate 58 /min Dia Hussain MANAGER PLAN.[employer] Work Phone: [facility] 10-11-2024 14:40-0500 Respiratory rate 16 /min Dia Hussain MANAGER PLAN.[employer] Work Phone: [facility] 10-11-2024 14:40-0500 SaO2% (BldA) [Mass fraction] 96 % Dia Hussain MANAGER PLAN.[employer] Work Phone: [facility] 10-11-2024 14:40-0500 Systolic blood pressure 120 mm[Hg] Dia Hussain MANAGER PLAN.[employer] Work Phone: [facility] 09-05-2024 20:00-0500 Body temperature 98.4 [degF] Dr. Ken Whelan MD Work Phone: 9(201)199-350419 [place] [address] 09-05-2024 20:00-0500 Diastolic blood pressure 92 mm[Hg] Dr. Ken Whelan MD Work Phone: 0(296)902-058919 [place] [address] 09-05-2024 20:00-0500 Heart rate 62 /min Dr. Ken Whelan MD Work Phone: 0(291)946-194119 [place] [address] 09-05-2024 20:00-0500 Respiratory rate 16 /min Dr. Ken Whelan MD Work Phone: 6(128)891-632019 [place] [address] 09-05-2024 20:00-0500 SaO2% (BldA) [Mass fraction] 98 % Dr. Ken Whelan MD Work Phone: 5(830)691-446619 [place] [address] 09-05-2024 20:00-0500 Systolic blood pressure 146 mm[Hg] Dr. Ken Whelan MD Work Phone: 9(745)213-300619 [place] [address] 09-05-2024 17:11-0500 Body height 157.[address] Ken Whelan MD Work Phone: 9(048)859-443519 [place] [address] 09-05-2024 17:11-0500 Body mass index (BMI) [Ratio] 31.4 kg/m2 Dr. Ken Whelan MD Work Phone: 0(007)975-257019 [place] [address] 09-05-2024 17:11-0500 Body weight 77.[address] Ken Whelan MD Work Phone: 2(299)356-762709 [place] [address] 08-08-2024 18:31-0500 Body temperature 97.2 [degF] Dr. Ken Whelan MD Work Phone: 3(097)914-559909 [place] [address] 08-08-2024 18:31-0500 Diastolic blood pressure 73 mm[Hg] Dr. Ken Whelan MD Work Phone: 1(720)797-932509 [place] [address] 08-08-2024 18:31-0500 Heart rate 59 /min Dr. Ken Whelan MD Work Phone: 5(175)150-751909 [place] [address] 08-08-2024 18:31-0500 Respiratory rate 18 /min Dr. Ken Whelan MD Work Phone: 3(341)207-710609 [place] [address] 08-08-2024 18:31-0500 SaO2% (BldA) [Mass fraction] 96 % Dr. Ken Whelan MD Work Phone: 8(290)952-174309 [place] [address] 08-08-2024 18:31-0500 Systolic blood pressure 118 mm[Hg] Dr. Ken Whelan MD Work Phone: 7(171)759-829409 [place] [address] 08-08-2024 14:48-0500 Body mass index (BMI) [Ratio] 31.2 kg/m2 Dr. Ken Whelan MD Work Phone: 0(493)802-077009 [place] [address] 08-08-2024 14:48-0500 Body weight 77.[address] Ken Whelan MD Work Phone: 5(494)026-185909 [place] [address] 07-08-2024 10:20-0400 Body mass index (BMI) [Ratio] 31.29 kg/m2 Jyotsna Lutz APRN.CNP Work Phone: [facility] 07-08-2024 10:20-0400 Body weight 77.6 kg Jyotsna Nelda MANAGER PLAN.[employer] Work Phone: [facility] 07-08-2024 10:20-0400 Diastolic blood pressure 82 mm[Hg] Jyotsna Nelda MANAGER PLAN.[employer] Work Phone: [facility] 07-08-2024 10:20-0400 Heart rate 64 /min Jyotsna Nelda MANAGER PLAN.[employer] Work Phone: [facility] 07-08-2024 10:20-0400 Respiratory rate 18 /min Jyotsna Nelda MANAGER PLAN.[employer] Work Phone: [facility] 07-08-2024 10:20-0400 SaO2% (BldA) [Mass fraction] 94 % Jyotsna Nelda MANAGER PLAN.[employer] Work Phone: [facility] 07-08-2024 10:20-0400 Systolic blood pressure 127 mm[Hg] Jyotsna Nelda MANAGER PLAN.[employer] Work Phone: [facility] 07-06-2024 14:41-0400 Diastolic blood pressure 82 mm[Hg] Ailyn Spanower MANAGER PLAN.[employer] Work Phone: [facility] 07-06-2024 14:41-0400 Heart rate 63 /min Ailyn Spanower MANAGER PLAN.[employer] Work Phone: [facility] 07-06-2024 14:41-0400 Respiratory rate 16 /min Ailyn Spanower MANAGER PLAN.[employer] Work Phone: [facility] 07-06-2024 14:41-0400 SaO2% (BldA) [Mass fraction] 93 % Ailyn Spanower MANAGER PLAN.[employer] Work Phone: [facility] 07-06-2024 14:41-0400 Systolic blood pressure 118 mm[Hg] Ailyn Spanower MANAGER PLAN.[employer] Work Phone: [facility] 05-27-2024 08:21-0400 Diastolic blood pressure 80 mm[Hg] Ken Whelan MD Work Phone: [facility] 05-27-2024 08:21-0400 Systolic blood pressure 130 mm[Hg] Ken Whelan MD Work Phone: [facility] 05-27-2024 08:18-0400 Body mass index (BMI) [Ratio] 30.81 kg/m2 Ken Whelan MD Work Phone: [facility] 05-27-2024 08:18-0400 Body weight 76.4 kg Ken Whelan MD Work Phone: [facility] 05-27-2024 08:18-0400 Heart rate 64 /min Ken Whelan MD Work Phone: [facility] 05-27-2024 08:18-0400 Respiratory rate 18 /min Ken Whelan MD Work Phone: [facility] 05-26-2024 15:00-0400 Diastolic blood pressure 67 mm[Hg] Jackie Lainez [facility] 05-26-2024 15:00-0400 Heart rate 60 /min Jackie Lainez PT [facility] 05-26-2024 15:00-0400 SaO2% (BldA) [Mass fraction] 92 % Jackie Lainez [facility] 05-26-2024 15:00-0400 Systolic blood pressure 116 mm[Hg] Jackie Lainez [facility] 05-20-2024 11:00-0400 SaO2% (BldA) [Mass fraction] 89 % Kaela Brasher PTA Work Phone: [facility] Comment on above: at start of session, recovered to 98 aft er 2 minutes 05-13-2024 09:44-0400 Body mass index (BMI) [Ratio] 31.21 kg/m2 Dia Nixon MANAGER PLAN.[employer] Work Phone: [facility] 05-13-2024 09:44-0400 Body weight 77.4 kg Dia Nixon MANAGER PLAN.[employer] Work Phone: [facility] 05-13-2024 09:44-0400 Diastolic blood pressure 72 mm[Hg] Dia Nixon MANAGER PLAN.[employer] Work Phone: [facility] 05-13-2024 09:44-0400 Heart rate 62 /min Dia Hussain MANAGER PLAN.[employer] Work Phone: [facility] 05-13-2024 09:44-0400 Respiratory rate 18 /min Dia Hussain MANAGER PLAN.[employer] Work Phone: [facility] 05-13-2024 09:44-0400 SaO2% (BldA) [Mass fraction] 95 % Dia Hussain MANAGER PLAN.[employer] Work Phone: [facility] 05-13-2024 09:44-0400 Systolic blood pressure 124 mm[Hg] Dia Hussain MANAGER PLAN.[employer] Work Phone: [facility] 05-12-2024 11:00-0400 SaO2% (BldA) [Mass fraction] 97 % Kaela Brasher JOURNALISM PROFESSOR Work Phone: [facility] 04-26-2024 15:00-0400 Diastolic blood pressure 78 mm[Hg] Jackie Lainez PT [facility] 04-26-2024 15:00-0400 Heart rate 70 /min Jackie Lainez PT [facility] 04-26-2024 15:00-0400 SaO2% (BldA) [Mass fraction] 95 % Jackie Lainez PT [facility] 04-26-2024 15:00-0400 Systolic blood pressure 113 mm[Hg] Jackie Lainez PT [facility] 04-18-2024 08:05-0400 Body mass index (BMI) [Ratio] 31.31 kg/m2 Kaya Moon Jr., MD Work Phone: [facility] 04-18-2024 08:05-0400 Body weight 77.66 kg Kaya Moon Jr., MD Work Phone: [facility] 04-18-2024 08:05-0400 Diastolic blood pressure 78 mm[Hg] Kaya Moon Jr., MD Work Phone: [facility] 04-18-2024 08:05-0400 Heart rate 60 /min Kaya Moon Jr., MD Work Phone: [facility] 04-18-2024 08:05-0400 SaO2% (BldA) [Mass fraction] 95 % Kaya Moon Jr., MD Work Phone: [facility] 04-18-2024 08:05-0400 Systolic blood pressure 122 mm[Hg] Kaya Moon Jr., MD Work Phone: [facility] 03-30-2024 14:54-0400 Body height 157.5 cm Dia Hussain MANAGER PLAN.[employer] Work Phone: [facility] 03-30-2024 14:54-0400 Body mass index (BMI) [Ratio] 30.54 kg/m2 Dia Hussain MANAGER PLAN.[employer] Work Phone: [facility] 03-30-2024 14:54-0400 Body weight 75.75 kg Dia Hussain MANAGER PLAN.[employer] Work Phone: [facility] 03-30-2024 14:54-0400 Diastolic blood pressure 72 mm[Hg] Dia Hussain MANAGER PLAN.[employer] Work Phone: [facility] 03-30-2024 14:54-0400 Heart rate 60 /min Dia Hussain MANAGER PLAN.[employer] Work Phone: [facility] 03-30-2024 14:54-0400 Respiratory rate 12 /min Dia Hussain MANAGER PLAN.[employer] Work Phone: [facility] 03-30-2024 14:54-0400 SaO2% (BldA) [Mass fraction] 95 % Dia Hussain MANAGER PLAN.[employer] Work Phone: [facility] 03-30-2024 14:54-0400 Systolic blood pressure 130 mm[Hg] Dia Hussain MANAGER PLAN.[employer] Work Phone: [facility] 01-21-2024 13:47-0400 Body height 157.5 cm Michelle Reagan MANAGER PLAN.[employer] Work Phone: [facility] 01-21-2024 13:47-0400 Body mass index (BMI) [Ratio] 30.89 kg/m2 Michelle Fegatelli MANAGER PLAN.[employer] Work Phone: [facility] 01-21-2024 13:47-0400 Body weight 76.6 kg Michelle Fegatelli MANAGER PLAN.[employer] Work Phone: [facility] 01-21-2024 13:47-0400 Diastolic blood pressure 75 mm[Hg] Michelle Fegatelli MANAGER PLAN.[employer] Work Phone: [facility] 01-21-2024 13:47-0400 Heart rate 59 /min Michelle Fegatelli MANAGER PLAN.[employer] Work Phone: [facility] 01-21-2024 13:47-0400 SaO2% (BldA) [Mass fraction] 92 % Michelle Fegatelli MANAGER PLAN.[employer] Work Phone: [facility] 01-21-2024 13:47-0400 Systolic blood pressure 115 mm[Hg] Michelle Fegatelli MANAGER PLAN.[employer] Work Phone: [facility] 01-06-2024 14:44-0400 Body mass index (BMI) [Ratio] 30.89 kg/m2 Ailyn Spanower MANAGER PLAN.[employer] Work Phone: [facility] 01-06-2024 14:44-0400 Body weight 76.6 kg Ailyn Spanower MANAGER PLAN.[employer] Work Phone: [facility] 01-06-2024 14:44-0400 Diastolic blood pressure 55 mm[Hg] Ailyn Spanower MANAGER PLAN.[employer] Work Phone: [facility] 01-06-2024 14:44-0400 Heart rate 60 /min Ailyn Spanower MANAGER PLAN.[employer] Work Phone: [facility] 01-06-2024 14:44-0400 SaO2% (BldA) [Mass fraction] 95 % Ailyn Spanower MANAGER PLAN.[employer] Work Phone: [facility] 01-06-2024 14:44-0400 Systolic blood pressure 122 mm[Hg] Ailyn Spanower MANAGER PLAN.[employer] Work Phone: [facility] 11-09-2023 14:23-0500 Body height 157.5 cm Tremaine Landon MD Work Phone: [facility] 11-09-2023 14:23-0500 Body weight 78.02 kg Tremaine Landon MD Work Phone: [facility] 11-09-2023 14:23-0500 Diastolic blood pressure 84 mm[Hg] Tremaine Landon MD Work Phone: [facility] 11-09-2023 14:23-0500 Heart rate 71 /min Tremaine Landon MD Work Phone: [facility] 11-09-2023 14:23-0500 Respiratory rate 16 /min Tremaine Landon MD Work Phone: [facility] 11-09-2023 14:23-0500 Systolic blood pressure 148 mm[Hg] Tremaine Landon MD Work Phone: [facility] 10-22-2023 14:36-0500 Body height 162.6 cm Michelle Fegatelli MANAGER PLAN.[employer] Work Phone: [facility] 10-22-2023 14:36-0500 Body weight 77.5 kg Michelle Fegatelli MANAGER PLAN.[employer] Work Phone: [facility] 10-22-2023 14:36-0500 Diastolic blood pressure 76 mm[Hg] Michelle Fegatelli MANAGER PLAN.[employer] Work Phone: [facility] 10-22-2023 14:36-0500 Heart rate 60 /min Michelle Fegatelli MANAGER PLAN.[employer] Work Phone: [facility] 10-22-2023 14:36-0500 Respiratory rate 16 /min Michelle Fegatelli MANAGER PLAN.[employer] Work Phone: [facility] 10-22-2023 14:36-0500 SaO2% (BldA) [Mass fraction] 95 % Michelle Fegatelli MANAGER PLAN.[employer] Work Phone: [facility] 10-22-2023 14:36-0500 Systolic blood pressure 114 mm[Hg] Michelle Reagan APRN.[employer] Work Phone: [facility] 10-14-2023 11:44-0500 Body temperature 98.6 [degF] Ken Whelan MD Work Phone: [facility] 10-14-2023 11:44-0500 Body weight 76.52 kg Ken Whelan MD Work Phone: [facility] 10-14-2023 11:44-0500 Diastolic blood pressure 66 mm[Hg] Ken Whelan MD Work Phone: [facility] 10-14-2023 11:44-0500 Heart rate 60 /min Ken Whelan MD Work Phone: [facility] 10-14-2023 11:44-0500 Respiratory rate 12 /min Ken Whelan MD Work Phone: [facility] 10-14-2023 11:44-0500 Systolic blood pressure 110 mm[Hg] Ken Whelan MD Work Phone: [facility] 10-02-2023 21:30-0500 Diastolic blood pressure 68 mm[Hg] Dr. Ken Whelan Work Phone: [facility] 10-02-2023 21:30-0500 Heart rate 60 /min Dr. Ken Whelan Work Phone: [facility] 10-02-2023 21:30-0500 Respiratory rate 15 /min Dr. Ken Whelan Work Phone: [facility] 10-02-2023 21:30-0500 SaO2% (BldA) [Mass fraction] 98 % Dr. Ken Whelan Work Phone: [facility] 10-02-2023 21:30-0500 Systolic blood pressure 160 mm[Hg] Dr. Kne Whelan Work Phone: 1(729)957-968536 [place] [address] 10-02-2023 18:51-0500 Body height 157.[address] Ken Whelan Work Phone: [facility] 10-02-2023 18:51-0500 Body temperature 97.9 [degF] Dr. Ken Whelan Work Phone: [facility] 09-30-2023 14:38-0500 Body height 158.5 cm Dia Hussain MANAGER PLAN.[employer] Work Phone: [facility] 09-30-2023 14:38-0500 Body weight 78.02 kg Dia Hussain MANAGER PLAN.[employer] Work Phone: [facility] 09-30-2023 14:38-0500 Diastolic blood pressure 78 mm[Hg] Dia Hussain MANAGER PLAN.[employer] Work Phone: 5(662)841-006513 [place] [address] 09-30-2023 14:38-0500 Heart rate 61 /min Dia Hussain MANAGER PLAN.[employer] Work Phone: [facility] 09-30-2023 14:38-0500 Respiratory rate 16 /min Dia Hussain MANAGER PLAN.[employer] Work Phone: [facility] 09-30-2023 14:38-0500 SaO2% (BldA) [Mass fraction] 97 % Dia Hussain MANAGER PLAN.[employer] Work Phone: [facility] 09-30-2023 14:38-0500 Systolic blood pressure 108 mm[Hg] Dia Hussain MANAGER PLAN.[employer] Work Phone: [facility] 08-07-2023 13:43-0500 Body mass index (BMI) [Ratio] 31.8 kg/m2 Dr. Ken Whelan Work Phone: [facility] 08-07-2023 13:43-0500 Body weight 78.[address] Ken Whelan Work Phone: [facility] 08-07-2023 13:43-0500 Diastolic blood pressure 73 mm[Hg] Dr. Ken Whelan Work Phone: 3(908)150-167319 [place] [address] 08-07-2023 13:43-0500 Heart rate 60 /min Dr. Ken Whelan Work Phone: 0(835)606-519909 [place] [address] 08-07-2023 13:43-0500 Respiratory rate 18 /min Dr. Ken Whelan Work Phone: 4(925)901-694109 [place] [address] 08-07-2023 13:43-0500 SaO2% (BldA) [Mass fraction] 97 % Dr. Ken Whelan Work Phone: 7(087)973-928109 [place] [address] 08-07-2023 13:43-0500 Systolic blood pressure 114 mm[Hg] Dr. Ken Whelan Work Phone: 1(889)815-550109 [place] [address] 05-27-2023 17:19-0400 Body height 157.[address] Ken Whelan Work Phone: 3(112)969-407309 [place] [address] 05-27-2023 17:19-0400 Body mass index (BMI) [Ratio] 32 kg/m2 Dr. Ken Whelan Work Phone: 3(719)568-820909 [place] [address] 05-27-2023 17:19-0400 Body temperature 97.5 [degF] Dr. Ken Whelan Work Phone: 8(555)766-366809 [place] [address] 05-27-2023 17:19-0400 Body weight 79.[address] Ken Whelan Work Phone: 0(383)748-883709 [place] [address] 05-27-2023 17:19-0400 Diastolic blood pressure 65 mm[Hg] Dr. Ken Whelan Work Phone: 1(580)211-473109 [place] [address] 05-27-2023 17:19-0400 Heart rate 59 /min Dr. Ken Whelan Work Phone: 4(417)229-831809 [place] [address] 05-27-2023 17:19-0400 Respiratory rate 16 /min Dr. Ken Whelan Work Phone: 8(381)427-790509 [place] [address] 05-27-2023 17:19-0400 SaO2% (BldA) [Mass fraction] 97 % Dr. Ken Whelan Work Phone: [facility] 05-27-2023 17:19-0400 Systolic blood pressure 138 mm[Hg] Dr. Ken Whelan Work Phone: [facility] 05-21-2023 13:48-0400 Body temperature 97.81 [degF] Dia Older MANAGER PLAN.[employer] Work Phone: [facility] 05-21-2023 13:48-0400 Body weight 79.88 kg Dia Older MANAGER PLAN.[employer] Work Phone: [facility] 05-21-2023 13:48-0400 Diastolic blood pressure 68 mm[Hg] Dia Older MANAGER PLAN.[employer] Work Phone: [facility] 05-21-2023 13:48-0400 Heart rate 60 /min Dia Older MANAGER PLAN.[employer] Work Phone: [facility] 05-21-2023 13:48-0400 Respiratory rate 18 /min Dia Older MANAGER PLAN.[employer] Work Phone: [facility] 05-21-2023 13:48-0400 SaO2% (BldA) [Mass fraction] 99 % Dia Older MANAGER PLAN.[employer] Work Phone: [facility] 05-21-2023 13:48-0400 Systolic blood pressure 116 mm[Hg] Dia Older MANAGER PLAN.[employer] Work Phone: [facility] 05-18-2023 17:33-0400 Diastolic blood pressure 76 mm[Hg] Dr. Ken Whelan Work Phone: [facility] 05-18-2023 17:33-0400 Heart rate 98 /min Dr. Ken Whelan Work Phone: [facility] 05-18-2023 17:33-0400 Respiratory rate 14 /min Dr. Ken Whelan Work Phone: [facility] 05-18-2023 17:33-0400 SaO2% (BldA) [Mass fraction] 98 % Dr. Ken Whelan Work Phone: 0(406)636-958419 [place] [address] 05-18-2023 17:33-0400 Systolic blood pressure 141 mm[Hg] Dr. Ken Whelan Work Phone: 9(416)706-854309 [place] [address] 05-18-2023 14:17-0400 Body height 157.[address] Ken Whelan Work Phone: 0(348)885-181509 [place] [address] 05-18-2023 14:17-0400 Body mass index (BMI) [Ratio] 34.7 kg/m2 Dr. Ken Whelan Work Phone: 7(970)683-637309 [place] [address] 05-18-2023 14:17-0400 Body temperature 96.3 [degF] Dr. Kne Whelan Work Phone: 6(676)760-856209 [place] [address] 05-18-2023 14:17-0400 Body weight 86.[address] Ken Whelan Work Phone: 3(628)122-873509 [place] [address] 05-05-2023 13:44-0400 Body height 157.[address] Ken Whelan Work Phone: 1(336)603-448709 [place] [address] 05-05-2023 13:44-0400 Body mass index (BMI) [Ratio] 31.8 kg/m2 Dr. Ken Whelan Work Phone: 6(504)580-861309 [place] [address] 05-05-2023 13:44-0400 Body weight 79.[address] Ken Whelan Work Phone: 0(667)730-418909 [place] [address] 05-05-2023 13:44-0400 Diastolic blood pressure 74 mm[Hg] Dr. Ken Whelan Work Phone: 8(625)815-453209 [place] [address] 05-05-2023 13:44-0400 Heart rate 60 /min Dr. Ken Whelan Work Phone: 9(474)842-903309 [place] [address] 05-05-2023 13:44-0400 Respiratory rate 18 /min Dr. Ken Whelan Work Phone: 5(606)755-996109 [place] [address] 05-05-2023 13:44-0400 SaO2% (BldA) [Mass fraction] 95 % Dr. Ken Whelan Work Phone: 0(446)492-977409 [place] [address] 05-05-2023 13:44-0400 Systolic blood pressure 115 mm[Hg] Dr. Ken Whelan Work Phone: 8(457)824-940809 [place] [address] 02-25-2023 06:48-0400 Body mass index (BMI) [Ratio] 31.8 kg/m2 Dr. Ken Whelan Work Phone: 1(078)777-108309 [place] [address] 02-25-2023 06:48-0400 Body temperature 97.8 [degF] Dr. Ken Whelan Work Phone: 1(058)421-556809 [place] [address] 02-25-2023 06:48-0400 Body weight 78.[address] Ken Whelan Work Phone: 9(650)768-331709 [place] [address] 02-25-2023 06:48-0400 Diastolic blood pressure 67 mm[Hg] Dr. Ken Whelan Work Phone: 6(356)400-187509 [place] [address] 02-25-2023 06:48-0400 Heart rate 60 /min Dr. Ken Whelan Work Phone: 6(997)435-482209 [place] [address] 02-25-2023 06:48-0400 Respiratory rate 18 /min Dr. Ken Whelan Work Phone: 1(850)524-743709 [place] [address] 02-25-2023 06:48-0400 SaO2% (BldA) [Mass fraction] 95 % Dr. Ken Whelan Work Phone: 3(278)212-473619 [place] [address] 02-25-2023 06:48-0400 Systolic blood pressure 103 mm[Hg] Dr. Ken Whelan Work Phone: 7(187)916-276709 [place] [address] 01-09-2023 22:26-0400 Diastolic blood pressure 74 mm[Hg] Dr. Ken Whelan Work Phone: 4(499)666-927509 [place] [address] 01-09-2023 22:26-0400 Heart rate 64 /min Dr. Ken Whelan Work Phone: 4(202)478-438009 [place] [address] 01-09-2023 22:26-0400 Respiratory rate 15 /min Dr. eKn Whelan Work Phone: [facility] 01-09-2023 22:26-0400 SaO2% (BldA) [Mass fraction] 97 % Dr. Ken Whelan Work Phone: [facility] 01-09-2023 22:26-0400 Systolic blood pressure 136 mm[Hg] Dr. Ken Whelan Work Phone: [facility] 01-09-2023 18:23-0400 Body height 157.[address] Ken Whelan Work Phone: [facility] 01-09-2023 18:23-0400 Body mass index (BMI) [Ratio] 32.5 kg/m2 Dr. Ken Whelan Work Phone: [facility] 01-09-2023 18:23-0400 Body temperature 96.7 [degF] Dr. Ken Whelan Work Phone: [facility] 01-09-2023 18:23-0400 Body weight 80.[address] Ken Whelan Work Phone: [facility] 01-09-2023 17:38-0400 Body temperature 97.9 [degF] Jorge Jordan APRN.[employer] Work Phone: [facility] 01-09-2023 17:38-0400 Body weight 80.92 kg Jorge Jordan APRN.[employer] Work Phone: [facility] 01-09-2023 17:38-0400 Diastolic blood pressure 84 mm[Hg] Jorge Jordan APRN.[employer] Work Phone: [facility] 01-09-2023 17:38-0400 Heart rate 60 /min Jorge Jordan APRN.[employer] Work Phone: [facility] 01-09-2023 17:38-0400 Respiratory rate 18 /min Jorge Jordan APRN.[employer] Work Phone: [facility] 01-09-2023 17:38-0400 SaO2% (BldA) [Mass fraction] 98 % Jorge Jordan APRN.[employer] Work Phone: [facility] 01-09-2023 17:38-0400 Systolic blood pressure 126 mm[Hg] Jorge Jordan APRN.[employer] Work Phone: [facility] 08-19-2022 14:20-0500 Body height 158.[address] Ken hWelan Work Phone: [facility] Work Phone: 08-19-2022 14:20-0500 Body mass index (BMI) [Ratio] 32.2 kg/m2 Dr. Ken Whelan Work Phone: [facility] Work Phone: 08-19-2022 14:20-0500 Body temperature 97.3 [degF] Dr. Ken Whelan Work Phone: [facility] Work Phone: 08-19-2022 14:20-0500 Body weight 81.[address] Ken Whelan Work Phone: [facility] Work Phone: 08-19-2022 14:20-0500 Diastolic blood pressure 81 mm[Hg] Dr. Ken Whelan Work Phone: [facility] Work Phone: 08-19-2022 14:20-0500 Heart rate 63 /min Dr. Ken Whelan Work Phone: [facility] Work Phone: 08-19-2022 14:20-0500 Respiratory rate 18 /min Dr. Ken Whelan Work Phone: [facility] Work Phone: 08-19-2022 14:20-0500 SaO2% (BldA) [Mass fraction] 95 % Dr. Ken Whelan Work Phone: [facility] Work Phone: 08-19-2022 14:20-0500 Systolic blood pressure 130 mm[Hg] Dr. Ken Whelan Work Phone: [facility] Work Phone: 08-01-2022 14:21-0500 Body height 158.8 cm Ken Whelan MD Work Phone: [facility] 08-01-2022 14:21-0500 Body weight 80.29 kg Ken Whelan MD Work Phone: [facility] 08-01-2022 14:21-0500 Diastolic blood pressure 75 mm[Hg] Ken Whelan MD Work Phone: [facility] 08-01-2022 14:21-0500 Heart rate 66 /min Ken Whelan MD Work Phone: [facility] 08-01-2022 14:21-0500 Respiratory rate 12 /min Ken Whelan MD Work Phone: [facility] 08-01-2022 14:21-0500 Systolic blood pressure 115 mm[Hg] Ken Whelan MD Work Phone: [facility] 07-15-2022 16:06-0500 Diastolic blood pressure 97 mm[Hg] Geoff Carlos MD Work Phone: [facility] 07-15-2022 16:06-0500 Heart rate 62 /min Geoff Carlos MD Work Phone: [facility] 07-15-2022 16:06-0500 Systolic blood pressure 166 mm[Hg] Geoff Carlos MD Work Phone: [facility] 07-05-2022 11:04-0400 Body weight 78.93 kg Misael Cooley MD Work Phone: [facility] 07-05-2022 11:04-0400 Diastolic blood pressure 82 mm[Hg] Misael Cooley MD Work Phone: [facility] 07-05-2022 11:04-0400 Heart rate 67 /min Misael Cooley MD Work Phone: [facility] 07-05-2022 11:04-0400 Respiratory rate 16 /min Misael Cooley MD Work Phone: [facility] 07-05-2022 11:04-0400 SaO2% (BldA) [Mass fraction] 96 % Misael Cooley MD Work Phone: [facility] 07-05-2022 11:04-0400 Systolic blood pressure 130 mm[Hg] Misael Cooley MD Work Phone: [facility] 06-19-2022 12:46-0400 Body temperature 98.91 [degF] Jennifer Older [employer]NAGER [employer] Work Phone: [facility] 06-19-2022 12:46-0400 Body weight 79.83 kg Jennifer Older MANAGER PL[employer] Work Phone: [facility] 06-19-2022 12:46-0400 Diastolic blood pressure 72 mm[Hg] Jennifer Older MANAGER PLAN.[employer] Work Phone: [facility] 06-19-2022 12:46-0400 Heart rate 60 /min Jennifer Older MANAGER PLAN.CHRISTMAS BELL RINGER Work Phone: [facility] 06-19-2022 12:46-0400 Respiratory rate 16 /min Jennifer Older MANAGER PLAN.CHRISTMAS BELL RINGER Work Phone: [facility] 06-19-2022 12:46-0400 Systolic blood pressure 120 mm[Hg] Jennifer Older MANAGER PLAN.CHRISTMAS BELL RINGER Work Phone: [facility] 01-23-2022 13:50-0400 Body temperature 98.29 [degF] Ken Whelan MD Work Phone: [facility] 01-23-2022 13:50-0400 Body weight 79.38 kg Ken Whelan MD Work Phone: [facility] 01-23-2022 13:50-0400 Diastolic blood pressure 70 mm[Hg] Ken Whelan MD Work Phone: [facility] 01-23-2022 13:50-0400 Heart rate 60 /min Ken Whelan MD Work Phone: [facility] 01-23-2022 13:50-0400 Respiratory rate 16 /min Ken Whelan MD Work Phone: [facility] 01-23-2022 13:50-0400 SaO2% (BldA) [Mass fraction] 92 % Ken Whelan MD Work Phone: [facility] 01-23-2022 13:50-0400 Systolic blood pressure 118 mm[Hg] Ken Whelan MD Work Phone: [facility] 01-07-2022 11:06-0400 Body height 159 cm Ria Matamoros DO Work Phone: [facility] 01-07-2022 11:06-0400 Body weight 79.38 kg Ria Matamoros DO Work Phone: [facility] 01-07-2022 11:06-0400 Diastolic blood pressure 77 mm[Hg] Ria Matamoros DO Work Phone: [facility] 01-07-2022 11:06-0400 Heart rate 60 /min Ria Matamoros DO Work Phone: [facility] 01-07-2022 11:06-0400 SaO2% (BldA) [Mass fraction] 100 % Ria Matamoros DO Work Phone: [facility] 01-07-2022 11:06-0400 Systolic blood pressure 132 mm[Hg] Ria Matamoros DO Work Phone: [facility] 10-01-2021 13:38-0500 Body height 157.[address] Ken Whelan Work Phone: [facility] Work Phone: 10-01-2021 13:38-0500 Body mass index (BMI) [Ratio] 32.3 kg/m2 Dr. Ken Whelan Work Phone: [facility] Work Phone: 10-01-2021 13:38-0500 Body weight 80.[address] Ken Whelan Work Phone: [facility] Work Phone: 10-01-2021 13:38-0500 Diastolic blood pressure 80 mm[Hg] Dr. Ken Whelan Work Phone: [facility] Work Phone: 10-01-2021 13:38-0500 Heart rate 60 /min Dr. Ken Whelan Work Phone: [facility] Work Phone: 10-01-2021 13:38-0500 Respiratory rate 18 /min Dr. Ken Whelan Work Phone: [facility] Work Phone: 10-01-2021 13:38-0500 SaO2% (BldA) [Mass fraction] 95 % Dr. Ken Whelan Work Phone: [facility] Work Phone: 10-01-2021 13:38-0500 Systolic blood pressure 130 mm[Hg] Dr. Ken Whelan Work Phone: [facility] Work Phone: 07-27-2017 14:41-0500 BMI (Body Mass Index) 33.48 kg/m2 [facility] Work Phone: 07-27-2017 14:41-0500 Body Temperature 97.7 [degF] [facility] Work Phone: 07-27-2017 14:41-0500 BP Diastolic 80 mm[Hg] [facility] [employer] Work Phone: 07-27-2017 14:41-0500 BP Systolic 164 mm[Hg] [facility] Work Phone: 07-27-2017 14:41-0500 Height 160.02 cm [facility] Work Phone: 07-27-2017 14:41-0500 Pulse (Heart Rate) 62 /min [facility] Work Phone: 07-27-2017 14:41-0500 Respiratory Rate 18 /min [facility] [employer] Work Phone: 07-27-2017 14:41-0500 Weight 85.73 kg [facility] Work Phone: 07-24-2017 07:36-0500 BMI (Body Mass Index) 33.65 kg/m2 Taylor Yensho CLEANER [facility] [employer] Work Phone: 07-24-2017 07:36-0500 Body Temperature 97.6 [degF] Taylor Yensho CLEANER [facility] [employer] Work Phone: 07-24-2017 07:36-0500 BP Diastolic 84 mm[Hg] Taylor Yensho CLEANER [facility] [employer] Work Phone: 07-24-2017 07:36-0500 BP Systolic 141 mm[Hg] Taylor Yensho CLEANER [facility] [employer] Work Phone: 07-24-2017 07:36-0500 Height 160.02 cm Taylor Yensho CLEANER [facility] [employer] Work Phone: 07-24-2017 07:36-0500 Pulse (Heart Rate) 61 /min Taylor Yensho CLEANER [facility] Work Phone: 07-24-2017 07:36-0500 Respiratory Rate 18 /min Taylor Yensho CLEANER [facility] [employer] Work Phone: 07-24-2017 07:36-0500 Weight 86.18 kg Taylor Yensho CLEANER [facility] [employer] Work Phone: 03-05-2017 08:46-0400 Body Temperature 97.81 [degF] [facility] Work Phone: 03-05-2017 08:46-0400 Height 160.02 cm [facility] Work Phone: 03-05-2017 08:46-0400 Weight 83.91 kg Health system [facility]monary [facility] Work Phone: 11-27-2016 12:52-0400 [facility]haled O2 2 [facility] Work Phone: Encounters Encounter Date Encounter Type Care Provider Facility Start: 04-27-2025 End: 04-27-2025 Refill Ken Whelan MD Work Phone: [facility] [employer] Comment on above: Refill Request Start: 04-25-2025 ambulatory Ken Doll ty:[facility] Start: 04-20-2025 Evaluation and management of inpatient Ken Whelan Facility:[facility] Start: 04-20-2025 Non-patient / Non-visit Dr. Sean Rizvi MD -[facility] Work Phone: Start: 04-19-2025 Non-patient / Non-visit Dr. Sean Rizvi MD -[facility] Work Phone: Start: 04-18-2025 Non-patient / Non-visit Dr. Sean Rizvi MD -[facility] Work Phone: Start: 04-17-2025 ambulatory Ken Doll ty:[facility] Start: 04-17-2025 End: 04-20-2025 Evaluation and management of inpatient Dr. Sean Rizvi MD -[facility] Work Phone: Start: 04-17-2025 End: 04-17-[address] Ken Whelan MD Work Phone: -[employer] [facility] Start: 04-17-2025 End: 04-17-2025 Patient encounter procedure Taylor Arce -[facility] Work Phone: Start: 04-17-2025 ambulatory Idalia Marti Facility :[facility] Start: 04-17-2025 Evaluation and management of inpatient Dr. Idalia Marti MD -[facility] Work Phone: Start: 04-17-2025 Non-patient / Non-visit Dr. Kat Marti MD -[employer] [facility] [facility] Work Phone: Start: 04-17-[address] Edis Whelan MD Work Phone: -[facility] Start: 04-11-2025 End: 04-11-2025 ambulatory KEN WHELAN Facility:[facility] Start: 04-07-2025 End: 04-07-2025 Patient encounter procedure Ashely Luevano MD Work Phone: Pulmonary Medicine Comment on above: Bronchiectasis with acute exacerbation (HCC) (Primary Dx); Nocturnal hypoxemia; Mild intermittent asthma without complication (HCC) Start: 04-07-2025 End: 04-07-2025 ambulatory KEN WHELAN Facility:[facility] Start: 04-06-2025 End: 04-06-2025 Refill Dia Nixon APRN.CHRISTMAS BELL RINGER Work Phone: Internal [facility] [employer] Comment on above: Refill Request Start: 03-31-2025 End: 03-31-2025 Patient encounter procedure Latonya STEVE -[facility] Work Phone: Start: 03-31-2025 End: 03-31-[address] Ken Whelan MD Work Phone: -[facility] Start: 03-28-2025 End: 03-28-2025 Subsequent hospital visit by physician Marii [facility] Work Phone: Radiology Comment on above: Acute cough [R05.1] Start: 03-28-2025 End: 03-28-2025 Patient encounter procedure Jorge Jordan APRN.CHRISTMAS BELL RINGER Work Phone: [facility] [employer] Comment on above: Acute cough (Primary Dx) Start: 03-28-2025 End: 03-28-2025 ambulatory KEN WHELAN Facility:[facility] Start: 03-28-2025 End: 03-29-2025 Follow-up encounter Jorge Bassam HERNÁNDEZ Work Phone: [facility] [employer] Comment on above: Results Start: 03-28-2025 End: 03-28-2025 Telephone encounter Ken Whelan MD Work Phone: [facility] [employer] Comment on above: Patient Update Start: 03-24-2025 End: 03-24-[address] Ken Whelan MD Work Phone: -[employer] [facility] Start: 03-24-2025 End: 03-24-[address] Zane Mchperson MD -[facility] Work Phone: Start: 03-23-2025 End: 03-23-2025 Patient encounter procedure Dian Rodas MD Work Phone: Allergy Comment on above: [id number] adv erse effect of medication, initial encounter (Primary Dx); Allergic rhinitis due to cats; Allergic rhinitis due to dust mite; Moderate persistent asthma without complication (HCC); Toxic effect from eating shellfish, accidental or unintentional, initial encounter Start: 03-23-2025 End: 03-23-2025 ambulatory KEN WHELAN Facility:[facility] Start: 03-17-2025 End: 03-17-2025 Telephone encounter Ken Whelan MD Work Phone: Internal Medicine [employer] Comment on above: Constipation Start: 03-08-2025 ambulatory Ken Whelan Facili ty:[facility] Start: 03-08-2025 Non-patient / Non-visit Dr. Alice TONEY -[facility] Start: 03-08-2025 End: 03-08-[address] Ken Whelan MD Work Phone: -Cardiovascular Services Start: 03-08-2025 End: 03-08-[address] Ken Whelan MD -Cardiovascular Services Work Phone: Start: 03-08-2025 End: 03-08-2025 ambulatory Ken Whelan Facility:[facility] Start: 03-07-2025 Non-patient / Non-visit Dr. Christi cook MD -[facility] Work Phone: Start: 03-04-2025 End: 03-07-2025 Refill Dia M Hussain MILTONCHRISTMAS BELL RINGER Work Phone: [facility] Comment on above: Refill Request Start: 03-02-2025 End: 03-02-2025 Office outpatient visit 25 minutes Ken Whelan MD Work Phone: Internal Medicine [employer] Comment on above: Depression, recurren t (Primary Dx); Hip pain, left; MARTINES (dyspnea on exertion); Contusion of left side of back, subsequent encounter Start: 03-02-2025 End: 03-02-2025 ambulatory KEN WHELAN Facility:[facility] Start: 02-15-2025 End: 02-15-2025 Emergency department patient visit Dr. Ken Whelan MD Work Phone: -Emergency Department Work Phone: Start: 02-15-2025 End: 02-15-2025 ambulatory Ken Whelan MD Work Phone: [facility] Comment on above: Head Injury Start: 02-06-2025 End: 02-06-2025 Telephone encounter Ken Whelan MD Work Phone: [facility] [place] Comment on above: [facility] Scheduling dept requesting records Start: 02-03-2025 End: 02-03-2025 ambulatory [facility] Work Phone: [facility]M [facility] Comment on above: Spirometry Start: 02-03-2025 End: 02-03-2025 Patient encounter procedure [facility] Work Phone: P[facility]M [facility] Start: 02-03-2025 End: 02-03-2025 Telephone encounter Ken Whelan MD Work Phone: [facility] Comment on above: Request for records Patient Update Start: 02-02-2025 End: 02-02-2025 Office outpatient visit 25 minutes Ken Whelan MD Work Phone: [facility] [place] Comment on above: Depression, recurren t (Primary Dx); Hip pain, left; Dyspnea on exertion Start: 02-02-2025 End: 02-02-2025 ambulatory KEN ALMARAZASQUEZ Facility:[facility] Start: 01-26-2025 End: 01-26-2025 ambulatory KEN WHELAN Facility:[facility] Start: 01-25-2025 End: 01-25-2025 ambulatory CAMI MARS Facility:[facility] Start: 01-11-2025 End: 01-11-2025 Patient encounter procedure Ailyn Bonner APRN.CNP Work Phone: [facility]ICINE [facility] Comment on above: Personal history of traumatic brain injury (Primary Dx); Sleep apnea, unspecified type Start: 01-11-2025 End: 01-11-2025 ambulatory AILYN BONNER Facility:[facility] Start: 01-06-2025 End: 01-06-2025 ambulatory Najma John RN Web Marketing Assistant Management Comment on above: Bi-Weekly Outreach ( Recurring) for Chronic Disease Management, Bi-Weekly Outreach (Recurring) for Chronic Disease Management Start: 01-05-2025 End: 01-05-2025 ambulatory KEN ALMARAZASQUEZ Facility:[facility] Start: 01-05-2025 End: 01-05-2025 Patient encounter procedure Ken Whelan MD Work Phone: [facility] [place] Comment on above: Medicare annual well ness visit, subsequent (Primary Dx); Depression, recurrent; Anxiety; Allergy to penicillin; Mild intermittent extrinsic asthma with acute exacerbation (HCC); Acquired hypothyroidism; Vitamin D deficiency; Stage 3 chronic kidney disease, unspecified whether stage 3a or 3b CKD (HCC); Dyspnea on exertion Start: 12-23-2024 End: 12-23-2024 ambulatory Zane Mcpherson Facility:[facility] Start: 12-23-2024 End: 12-23-[address] Zane Mcpherson MD -[facility] Work Phone: Start: 12-22-2024 End: 12-22-2024 ambulatory Najma John RN Web Marketing Assistant Management Comment on above: Bi-Weekly Outreach ( Recurring) for Chronic Disease Management Start: 12-19-2024 End: 12-19-2024 Telephone encounter Ken Whelan MD Work Phone: [facility] [place] Comment on above: Fax Request Start: 12-16-2024 End: 12-16-2024 ambulatory KEN WHELAN Facility:[facility] Start: 12-16-2024 End: 12-16-2024 Patient encounter procedure Ruben Butler PA-C Work Phone: Orthopaedics Comment on above: Chronic bilateral lo w back pain without sciatica (Primary Dx); Hip pain, left; Pain of erector spinae muscle Start: 12-15-2024 End: 12-16-2024 Follow-up encounter Cami Mars MD Work Phone: Geriatrics Start: 12-14-2024 End: 12-14-2024 [facility] Start: 12-14-2024 End: 12-14-2024 [facility] Facility:[facility] Start: 12-14-2024 End: 12-14-2024 Office consultation new/estab [...] Start: 12-13-2024 End: 12-13-2024 Telephone encounter Ashely Luevano MD Work Phone: Pulmonary Medicine Comment on above: Patient Update Start: 12-07-2024 End: 12-07-2024 ambulatory Najma John RN Web Marketing Assistant Management Comment on above: Bi-Weekly Outreach ( Recurring) for Chronic Disease Management Start: 12-06-2024 End: 12-07-2024 Refill Dia Nixon MANAGER PLAN.CHRISTMAS BELL RINGER Work Phone: Internal Medicine [employer] Comment on above: Refill Request Start: 12-01-2024 End: 12-02-2024 Telephone encounter Ken Whelan MD Work Phone: [address] [place] [address] Comment on above: Patient Question Start: 11-29-2024 End: 11-29-2024 Telephone encounter Ken Whelan MD Work Phone: Internal Medicine [employer] Comment on above: Consult (Orthopedic ) Start: 11-24-2024 End: 11-24-2024 ambulatory KEN WHELAN Facility:[facility] Start: 11-24-2024 End: 11-24-2024 Subsequent hospital visit by physician Xr [facility] Work Phone: Radiology Comment on above: Hip pain, left [M25. 552] Start: 11-24-2024 End: 11-24-2024 ambulatory KEN WHELAN Facility:[facility] Start: 11-24-2024 End: 11-24-2024 Office outpatient visit 25 minutes Ken Whelan MD Work Phone: Internal Medicine [employer] Comment on above: Hip pain, left (Prim corinna Dx); Physical debility; Oxygen desaturation; Bronchiectasis without complication (HCC) Start: 11-23-2024 End: 11-23-2024 ambulatory Najma John RN Web Marketing Assistant Management Comment on above: Started Bi-Weekly Ou roz (Heraclio) for Chronic Disease Management Start: 11-11-2024 End: 11-11-[address] Ken Whelan MD Work Phone: [facility] Work Phone: Start: 11-11-2024 End: 11-11-2024 Patient encounter procedure Latonya Vargas PA -Laboratory Work Phone: Start: 11-11-2024 End: 11-11-2024 ambulatory Ken Whelan Facility:[facility] Start: 11-09-2024 End: 12-12-2024 ambulatory Najma John RN Web Marketing Assistant Management Comment on above: Initial enrollment o francis for Chronic Disease Management Start: 10-31-2024 End: 10-31-2024 Orders Only Ashely Luevano MD Work Phone: Pulmonary Medicine Comment on above: Bronchiectasis witho ut complication (HCC) (Primary Dx) Overnight test Start: 10-30-2024 End: 11-02-2024 Refill Ken Whelan MD Work Phone: [facility] Comment on above: Refill Request Start: 10-20-2024 End: 10-20-2024 ambulatory DIA NIXON Facility:[facility] Start: 10-20-2024 End: 10-20-2024 Patient encounter procedure Ashely Luevano MD Work Phone: Pulmonary Medicine Comment on above: Nocturnal hypoxemia (Primary Dx); Bronchiectasis without complication (HCC); Pulmonary hypertension (HCC); Mild intermittent asthma without complication Start: 10-12-2024 End: 10-12-[address] Jann Mello MD -Cat Scan, [facility] Work Phone: Start: 10-11-2024 End: 10-12-2024 ambulatory DIA NIXON Facility:[facility] Start: 10-11-2024 End: 10-11-2024 Patient encounter procedure Dia Nixon MANAGER PLAN.CHRISTMAS BELL RINGER Work Phone: [facility] [place] Comment on above: Nocturnal hypoxia (P rimary Dx); Asthmatic bronchitis , chronic (HCC); Depression, recurrent (HCC); Stage 3 chronic kidney disease, unspecified whether stage 3a or 3b CKD (HCC); Bronchiectasis without complication (HCC); Essential hypertension Start: 09-28-2024 End: 10-05-2024 Telephone encounter Ken Whelan MD Work Phone: [facility] [place] Comment on above: Patient Update Start: 09-23-2024 End: 09-23-2024 ambulatory Zane Mcpherson Facility:[facility] Start: 09-23-2024 End: 09-23-[address] Zane Mcpherson MD -[facility] Work Phone: Start: 09-05-2024 End: 09-05-2024 Emergency department patient visit Dr. Patrice Brady DO -Emergency Department Work Phone: Start: 09-04-2024 End: 09-05-2024 Refill Ken Whelan MD Work Phone: Internal Medicine [employer] Comment on above: Refill Request Start: 08-26-[address] Aryan Whelan MD -[facility] Work Phone: Start: 08-26-2024 ambulatory Ken Whelan [facility] ty:[facility] Start: 08-11-2024 End: 08-12-2024 Telephone encounter Ken Whelan MD Work Phone: Internal Medicine [employer] Comment on above: Question Start: 08-08-2024 End: 08-08-2024 Emergency department patient visit Dr. Shad Hunter MD -Emergency Department Work Phone: Start: 08-08-2024 End: 08-09-2024 Telephone encounter Ken Whelan MD Work Phone: Internal Medicine [employer] Comment on above: Fall Start: 07-08-2024 End: 07-08-2024 Patient encounter procedure Jyotsnacorinne Lutz MANAGER PLAN.CHRISTMAS BELL RINGER Work Phone: Neurology Comment on above: Excessive daytime sl eepiness (Primary Dx) Start: 07-08-2024 End: 07-08-2024 ambulatory JYOTSNA NELDA Facility:[facility] Start: 07-06-2024 End: 07-06-2024 ambulatory AILYN BONNER Facility:[facility] Start: 07-06-2024 End: 07-06-2024 Patient encounter procedure Ailyn Bonner MANAGER PLAN.CHRISTMAS BELL RINGER Work Phone: [facility] Comment on above: Fatigue, unspecified type (Primary Dx); Personal history of traumatic brain injury; Impaired functional mobility, balance, gait, and endurance Start: 07-01-2024 End: 07-01-2024 ambulatory Zane Mcpherson Facility:[facility] Start: 07-01-2024 End: 07-01-2024 ambulatory [facility] Facility:[facility] Start: 06-24-2024 End: 07-11-2024 Telephone encounter Kaya Moon MD Work Phone: Neurology Comment on above: Results Start: 06-24-2024 End: 06-24-2024 ambulatory [facility] Facility:[facility] Start: 06-21-2024 End: 06-21-2024 ambulatory [facility] Facility:[facility] Start: 06-06-2024 End: 06-06-2024 Telephone encounter Kaya Moon MD Work Phone: Sleep Comment on above: faxed orders to [facility]- polysomnogram Start: 06-05-2024 End: 06-06-2024 Refill Dia Nixon APRN.CNP Work Phone: Internal Medicine [employer] Comment on above: Refill Request Start: 06-01-2024 End: 06-01-2024 Telephone encounter Kaya Moon MD Work Phone: Neurology Comment on above: Patient Update Start: 05-27-2024 End: 05-27-2024 Subsequent hospital visit by physician [facility] Work Phone: Radiology Comment on above: Oxygen desaturation [R09.02] Start: 05-27-2024 End: 05-27-2024 ambulatory [facility] Facility:[facility] Start: 05-27-2024 End: 05-27-2024 Office outpatient visit 25 minutes Ken Whelan MD Work Phone: Internal Medicine [employer] Comment on above: Oxygen desaturation (Primary Dx); Encounter for immunization; Asthmatic bronchitis , chronic (HCC); Bronchiectasis without complication (HCC); Nocturnal hypoxemia; Dyspnea, unspecified type Start: 05-26-2024 End: 05-26-2024 ambulatory Jackie Lainez PT [facility] Comment on above: 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) Start: 05-26-2024 End: 05-26-2024 ambulatory DIA NIXON Facility:[facility] Start: 05-25-2024 End: 05-25-2024 Telephone encounter Kaya Moon MD Work Phone: [address] [place] [address] Comment on above: Orders Start: 05-20-2024 End: 05-20-2024 ambulatory Kaela Yangsherine JOURNALISM PROFESSOR Work Phone: [facility] Comment on above: 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) Start: 05-16-2024 End: 05-16-2024 Telephone encounter Kaya Moon MD Work Phone: Neurology Comment on above: Results Start: 05-16-2024 End: 05-16-2024 ambulatory DIA NIXON Facility:[facility] Start: 05-16-2024 End: 05-16-2024 Patient encounter procedure Rhoda Santiago MD Work Phone: Otolaryngology Comment on above: Sore throat (Primary Dx); History of oral lesions Start: 05-13-2024 End: 05-13-2024 Telephone encounter Dia Nixon MANAGER PLAN.CHRISTMAS BELL RINGER Work Phone: Internal Medicine [employer] Comment on above: Referral Request Start: 05-13-2024 End: 05-13-2024 ambulatory DIA NIXON Facility:[facility] Start: 05-13-2024 End: 05-13-2024 Patient encounter procedure Dia Nixon MANAGER PLAN.CHRISTMAS BELL RINGER Work Phone: Internal Medicine [employer] Comment on above: Nocturnal hypoxia (P rimary Dx); Chest discomfort; Bronchiectasis without complication (HCC) Start: 05-12-2024 End: 05-16-2024 Telephone encounter Ken Whelan MD Work Phone: [facility] Comment on above: Appointment Start: 05-12-2024 End: 05-12-2024 ambulatory Kaela Potternayla JOURNALISM PROFESSOR Work Phone: [facility] Comment on above: 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) Start: 05-11-2024 End: 05-13-2024 ambulatory Ken Whelan MD Work Phone: [facility] [place] Comment on above: Response to your mes radha of 05/11/24 Start: 05-05-2024 End: 05-05-2024 ambulatory Jackie Lainez PT [facility] Comment on above: 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) Start: 05-03-2024 End: 05-03-2024 ambulatory KEN WHELAN Facility:[facility] Start: 05-02-2024 End: 05-02-2024 Refill Ken Whelan MD Work Phone: [facility] [place] Comment on above: Refill Request Start: 04-29-2024 End: 05-06-2024 [facility] Work Phone: Neurology Start: 04-26-2024 End: 04-26-2024 ambulatory Jackie Lainez PT [facility] Comment on above: 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) Start: 04-21-2024 End: 04-21-2024 ambulatory MICHELLE REAGAN Facility:[facility] Start: 04-21-2024 End: 04-21-2024 Patient encounter procedure Michelle Reagan APRN.CNP Work Phone: [facility] Comment on above: SAH (subarachnoid he morrhage) (HCC) (Primary Dx) Start: 04-21-2024 End: 04-21-2024 Telemedicine consultation with patient Michelle Beasleyjo MANAGER PLAN.CHRISTMAS BELL RINGER Work Phone: [facility] Start: 04-18-2024 End: 04-18-2024 Patient encounter procedure Kaya Moon MD Work Phone: Neurology Comment on above: Hypersomnia (Primary Dx); Delayed sleep phase syndrome; Insomnia, unspecified type; History of depression; History of anxiety; Snoring; Nocturia; Class 1 obesity with body mass index (BMI) of 31.0 to 31.9 in adult, unspecified obesity type, unspecified whether serious comorbidity present Start: 04-18-2024 End: 04-18-2024 ambulatory KEN WHELAN Facility:[facility] Start: 04-02-2024 Refill Dia calderon MANAGER PLAN.CHRISTMAS BELL RINGER Work Phone: Internal Medicine [employer] Comment on above: Refill Request Start: 03-30-2024 End: 03-30-2024 Patient encounter procedure Dia José Miguel Hussain MANAGER PLAN.CHRISTMAS BELL RINGER Work Phone: [facility] [employer] Comment on above: Essential hypertensi on (Primary Dx); Fall from slip, trip, or stumble, initial encounter; Balance problem; Asthmatic bronchitis , chronic (HCC); Acquired hypothyroidism; Anxiety Start: 03-01-2024 Refill Dia calderon MANAGER PLAN.CHRISTMAS BELL RINGER Work Phone: [facility] [employer] Comment on above: Refill Request Start: 02-12-2024 Telephone encounter Ken murillo MD Work Phone: [facility] [employer] Comment on above: Results Start: 01-27-2024 End: 01-27-2024 ambulatory AILYN BONNER Facility:[facility] Start: 01-27-2024 End: 01-27-2024 ambulatory Joseryan Rodriguez CCC-RETICLE PRINTER Work Phone: [facility] Out[facility] Speech Therapy Start: 01-27-2024 End: 01-27-2024 Patient encounter procedure Jose Rodriguez CCC-RETICLE PRINTER Work Phone: [facility] Comment on above: Personal history of traumatic brain injury (Primary Dx) Start: 01-21-2024 End: 01-21-2024 Patient encounter procedure Michelle Reagan MANAGER PLAN.CHRISTMAS BELL RINGER Work Phone: [facility] Comment on above: SAH (subarachnoid he morrhage) (HCC) (Primary Dx) Start: 01-21-2024 End: 01-21-2024 ambulatory MICHELLE JO Facility:[facility] Start: 01-06-2024 End: 01-06-2024 Patient encounter procedure Ailyn Bonner MANAGER PLAN.CHRISTMAS BELL RINGER Work Phone: [facility]INE [facility] Comment on above: Personal history of traumatic brain injury (Primary Dx); Sleep apnea, unspecified type; Fatigue, unspecified type; Aphagia; Impaired functional mobility, balance, gait, and endurance Start: 12-05-2023 Refill Dia calderon MANAGER PLAN.CHRISTMAS BELL RINGER Work Phone: [facility] [employer] Comment on above: Refill Request Start: 11-09-2023 End: 11-09-2023 Patient encounter procedure Tremaine Landon MD Work Phone: Neurology Comment on above: Traumatic brain inju ry, without loss of consciousness, subsequent encounter (Primary Dx); 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; Dizziness and giddiness; Forgetfulness; Imbalance; Post-traumatic headache, not intractable, unspecified chronicity pattern Start: 11-09-2023 End: 11-09-2023 ambulatory TREMAINE LANDON Facility:[facility] Start: 11-04-2023 Refill Dia calderon MANAGER PLAN.CHRISTMAS BELL RINGER Work Phone: [facility] [place] Comment on above: Refill Request Start: 11-03-2023 Refill Ken nolen MD Work Phone: [facility] [place] Comment on above: Refill Request Start: 10-29-2023 Telephone encounter Ken murillo MD Work Phone: Internal Medicine [employer] Comment on above: Patient Question Start: 10-22-2023 End: 10-22-2023 Patient encounter procedure Michelle Reagan MANAGER PLAN.CHRISTMAS BELL RINGER Work Phone: [facility] Comment on above: SAH (subarachnoid he morrhage) (HCC) (Primary Dx) Start: 10-22-2023 End: 10-22-2023 ambulatory MICHELLE FEGATELLI Facility:[facility] Start: 10-19-2023 End: 10-19-2023 Subsequent hospital visit by physician Catarina [facility] ([facility]) Work Phone: Cat Scan Comment on above: SAH (subarachnoid he morrhage) (HCC) [I60.9] Start: 10-14-2023 End: 10-14-2023 Patient encounter procedure Ken Whelan MD Work Phone: [facility] [place] Comment on above: Subarachnoid bleed ( HCC) (Primary Dx); DDD (degenerative disc disease), lumbar; Acquired hypothyroidism; Gastroesophageal reflux disease with esophagitis; Depressive disorder w/ seasonal affective disorder; Anxiety; Injury of head, subsequent encounter; Bronchiectasis without complication (HCC); Physical debility; Gastroesophageal reflux disease with esophagitis, unspecified whether hemorrhage Start: 10-02-2023 End: 10-05-2023 Evaluation and management of inpatient WEN GALICIA Facility:[facility] Start: 10-02-2023 End: 10-02-2023 Emergency department patient visit Dr. Ken Whelan Work Phone: [facility]-Emergency Department Work Phone: Start: 09-30-2023 End: 09-30-2023 Patient encounter procedure Dia Nixon APRN.CHRISTMAS BELL RINGER Work Phone: Internal Medicine [employer] Comment on above: Medicare annual well ness visit, subsequent (Primary Dx); Depression, recurrent (HCC); Bronchiectasis without complication (HCC); Stage 3 chronic kidney disease, unspecified whether stage 3a or 3b CKD (HCC) Start: 08-07-2023 End: 08-07-[address] Ken Whelan Work Phone: [facility] Work Phone: Start: 08-04-2023 End: 08-04-2023 Subsequent hospital visit by physician [facility] Work Phone: Radiology Start: 07-08-2023 ambulatory Dia GraceCHRISTMAS BELL RINGER Work Phone: [facility] Medicine [place] Comment on above: mammogram results Start: 07-08-2023 E-mail encounter fro m caregiver Dia Thayer APRN.CHRISTMAS BELL RINGER Work Phone: [facility] [place] Start: 07-07-2023 End: 07-07-2023 Subsequent hospital visit by physician [facility] Comment on above: Screening mammogram for breast cancer [Z12.31] Start: 06-23-2023 End: 06-23-[address] Ken Whelan Work Phone: [facility] Work Phone: Start: 05-27-2023 End: 05-27-2023 Emergency department patient [facility] Start: 05-21-2023 End: 05-21-2023 Patient encounter procedure Dia Thayer APRN.CHRISTMAS BELL RINGER Work Phone: [facility] [employer] Comment on above: Fall on same level f rom slipping, tripping or stumbling, subsequent encounter (Primary Dx); Abrasion, multiple sites; Injury of head, subsequent encounter; Injury of right knee, subsequent encounter; Need for vaccine for DT (diphtheria-tetanus); Encounter for immunization; Screening mammogram for breast cancer Start: 05-18-2023 End: 05-18-2023 Emergency department patient visit Dr. Ken [facility]helan [facility]: Start: 05-05-2023 End: 05-05-[address] Ken Whelan Work Phone: [facility] Work Phone: Start: 05-05-2023 End: 05-05-[address] Ken Whelan Work Phone: [facility] Work Phone: Start: 04-28-2023 Refill Ken nolen MD Work Phone: [facility] [employer] Comment on above: Refill Request Start: 03-10-2023 Refill Dia Thayer MANAGER PLAN .CHRISTMAS BELL RINGER Work Phone: Internal Medicine [employer] Comment on above: Refill Request Start: 02-25-2023 End: 02-25-[address] Ken Whelan Work Phone: [facility] [employer] Work Phone: Start: 02-16-2023 Refill Ken nolen MD Work Phone: [facility] [employer] Comment on above: Refill Request Start: 02-07-2023 Refill Ken nolen MD Work Phone: [facility] [employer] Comment on above: Refill Request Start: 01-09-2023 End: 01-09-2023 Emergency department patient visit Dr[facility]helan [facility] Start: 01-09-2023 End: 01-09-2023 Patient encounter procedure Jorge Jordan MANAGER PLAN.CHRISTMAS BELL RINGER Work Phone: [facility] Comment on above: Acute constipation ( Primary Dx) Start: 12-30-2022 Refill Ken nolen MD Work Phone: [facility] [employer] Start: 12-24-2022 Patient Msg [facility] Provider [facility] [employer] Comment on above: Refill request Start: 12-10-2022 Refill Ken nolen MD Work Phone: [facility] [employer] Comment on above: Refill Request Start: 12-08-2022 Refill Dia Older MANAGER PLAN .CHRISTMAS BELL RINGER Work Phone: [facility] Comment on above: Refill Request Start: 12-07-2022 Refill Dia Older MANAGER PLAN .CHRISTMAS BELL RINGER Work Phone: [facility] [employer] Comment on above: Refill Request Start: 11-16-2022 Refill Dia Older MANAGER PLAN .CHRISTMAS BELL RINGER Work Phone: [facility] Comment on above: Refill Request Start: 11-14-2022 End: 11-14-[address] Ken Whelan Work Phone: [facility] Start: 10-30-2022 Refill Dia Older MANAGER PLAN .CHRISTMAS BELL RINGER Work Phone: [facility] Comment on above: Refill Request Handicap Placard González ewal Request Start: 09-15-2022 Refill Ken nolen MD Work Phone: [facility] [employer] Comment on above: Refill Request; Refi ll Request Start: 08-28-2022 End: 08-28-[address] Ken Whelan Work Phone: [facility] Work Phone: Start: 08-28-2022 End: 08-28-[address] [facility] Whelan [facility] Start: 08-20-2022 End: 08-20-[address] Ken Whelan Work Phone: [facility] Work Phone: Start: 08-20-2022 End: 08-20-[address] [facility] Whelan [facility] Start: 08-19-2022 End: 08-19-[address] Ken Whelan [facility] Start: 08-08-2022 End: 08-08-[address] Ken Whelan Work Phone: [facility] Start: 08-01-2022 End: 08-01-2022 Patient encounter procedure Ken Whelan MD Work Phone: [facility] [employer] Comment on above: Medicare annual well ness visit, subsequent (Primary Dx); Dysfunction of left eustachian tube; Depressive disorder w/ seasonal affective disorder; Acquired hypothyroidism; Anxiety; DDD (degenerative disc disease), lumbar; Mixed stress and urge urinary incontinence; Essential hypertension; Recurrent UTI Start: 07-18-2022 Refill Ken nolen MD Work Phone: [facility] [employer] Comment on above: Refill Request Start: 07-15-2022 End: 07-15-2022 Patient encounter procedure Geoff Carlos MD Work Phone: Ophthalmology Comment on above: 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, mild stage (Primary Dx); Optic cupping of both eyes; Nonexudative age-related macular degeneration, bilateral, intermediate dry stage; Essential hypertension Start: 07-05-2022 End: 07-05-2022 Patient encounter procedure Misael Cooley MD Work Phone: [facility] [employer] Comment on above: Recurrent UTI Start: 07-03-2022 Telephone encounter Ken murillo MD Work Phone: [facility] [place] Comment on above: Insurance Authorizat ion Start: 06-30-2022 Telephone encounter Jennifer Older MANAGER PLAN.CHRISTMAS BELL RINGER Work Phone: [facility] [employer] Comment on above: reoccurant UTI Start: 06-23-2022 Telephone encounter Jennifer Older MANAGER PLAN.CHRISTMAS BELL RINGER Work Phone: [facility] [place] Comment on above: Results Start: 06-19-2022 End: 06-19-2022 Patient encounter procedure Jennifer Thayer MANAGER PLAN.CHRISTMAS BELL RINGER Work Phone: [facility] [place] Comment on above: Urinary tract infect ion without hematuria, site unspecified (Primary Dx); Dysuria Start: 06-18-2022 Refill Geoff leija MD Work Phone: Ophthalmology Comment on above: Refill Request Start: 05-31-2022 Refill Dia Older MANAGER PLAN .CHRISTMAS BELL RINGER Work Phone: [facility] [place] Comment on above: Refill Request Start: 05-28-2022 Telephone encounter Kne murillo MD Work Phone: [facility] [employer] Comment on above: Medication Problem; Patient Update Start: 05-08-2022 Telephone encounter Ken murillo MD Work Phone: [facility] [employer] Comment on above: Patient Question Start: 05-07-2022 Refill Dia Older MANAGER PLAN .CHRISTMAS BELL RINGER Work Phone: [facility] [employer] Comment on above: Refill Request Start: 04-14-2022 Refill Geoff leija MD Work Phone: Ophthalmology Comment on above: Refill Request Start: 04-11-2022 ambulatory Ken nolen MD Work Phone: [facility] [employer] Comment on above: sinus pressure; ear ache [...] hospital visit by physician Marii [facility] [place] Work Phone: Radiology Comment on above: Pleurisy [R09.1] Start: 01-23-2022 End: 01-23-2022 Patient encounter procedure Ken Whelan MD Work Phone: Internal [facility] [employer] Comment on above: Pleurisy (Primary Dx ); Vitamin D deficiency; Bronchiectasis without complication (HCC); Essential hypertension; Acquired hypothyroidism; Elevated alkaline phosphatase measurement; Need for COVID-19 vaccine; Personal history of squamous cell carcinoma of skin Start: 01-17-2022 Non-patient / Non-visit Dr. Afia Whelan Work Phone: [facility] Start: 01-17-2022 End: 01-17-[address] Ken Whelan Work Phone: [facility]-Pulmonary Services/Neurology Start: 01-10-2022 Telephone encounter Dia Thayer APRN.CNP Work Phone: [facility] [employer] Comment on above: Opened In Error Start: 01-07-2022 End: 01-07-2022 Patient encounter procedure Ria Matamoros DO Work Phone: Vascular Surgery Comment on above: Venous (peripheral) insufficiency (Primary Dx) Start: 12-18-2021 End: 12-18-[address] Ken Whelan Work Phone: [facility]-Cardiovascular Services Start: 11-29-2021 Refill Dia Thayer MANAGER PLAN .CHRISTMAS BELL RINGER Work Phone: Internal Medicine [employer] Comment on above: Refill Request Start: 10-18-2021 End: 10-18-[address] Ken Whelan Work Phone: [facility] Start: 10-01-2021 End: 10-01-[address] Ken Whelan Work Phone: [facility] Start: 06-22-2012 End: 06-24-2017 Patient encounter procedure Ailyn Bonner MANAGER PLAN.CHRISTMAS BELL RINGER Work Phone: [facility] Procedures Date Procedure Procedure Detail Performing Clinician Start: 04-20-[address] Ken Whelan MD Work Phone: Start: 04-19-[address] Ken Whelan MD Work Phone: Start: 04-17-2025 MRI of brain without contrast Dr. Ken Whelan MD Work Phone: Start: 04-17-[address] Ken Whelan MD Work Phone: Start: 04-16-[address] Ken Whelan MD Work Phone: Start: 04-16-2025 Urnls dip stick/tabl et reagent auto microscopy Dr. Ken Whelan MD Work Phone: Start: 04-16-2025 CT of head without contrast Dr. Ken Whelan MD Work Phone: Start: 03-28-2025 Radiologic exam ches t 2 views Jorge Jordan APRNLeslyCHRISTMAS BELL RINGER Work Phone: Start: 03-08-2025 Cardiovascular stres s test using pharmacologic stress agent Dr. eKn Whelan MD Work Phone: Start: 02-15-2025 X-ray of lumbar spin e, two or three views Dr. Ken Whelan MD Work Phone: Start: 02-15-2025 CT cervical spine wi thout contrast Dr. Ken Whelan MD Work Phone: Start: 02-15-2025 CT of head without contrast Dr. Ken Whelan MD Work Phone: Start: 02-03-2025 Brncdilat rspse spmt ry pre&post-brncdilat admn Cami Mars MD Work Phone: Start: 10-12-2024 CT of head without contrast Dr. Ken Whelan MD Work Phone: Start: 09-05-2024 X-ray of chest, PA a nd lateral views Dr. Ken Whelan MD Work Phone: Start: 09-05-2024 SARS-CoV-2, Influenz a & RSV (PCR) Dr. Ken Whelan MD Work Phone: Start: 08-08-2024 X-ray of chest posteroanterior view Dr. Ken Whelan MD Work Phone: Start: 08-08-2024 CT of head without contrast Dr. Ken Whelan MD Work Phone: Start: 05-27-2024 Radiologic exam ches t 2 views Ken Whelan MD Work Phone: Start: 05-26-2024 Echocardiography DIA HE RSHBERGER Start: 10-19-2023 Ct head/brain w/o co ntrast material Dulce Vallejo PA-C Work Phone: Start: 10-02-2023 CT cervical spine wi thout contrast Dr. Ken Whelan Work Phone: Start: 10-02-2023 CT of head without contrast Dr. Ken Whelan Work Phone: Start: 08-04-2023 Digital breast tomos ynthesis unilateral Dia Older MANAGER PLAN.CHRISTMAS BELL RINGER Work Phone: Start: 07-07-2023 Screening mammograph y bi 2-view breast inc cad Dia Older MANAGER PLAN.CHRISTMAS BELL RINGER Work Phone: Start: 05-27-2023 Radiologic examinati on of knee Dr. Ken Whelan Work Phone: Start: 05-27-2023 Plain X-ray of tibia and fibula Dr. Ken Whelan Work Phone: Start: 05-21-2023 INFLUENZA VACCINE, P RSV FREE, AGE 65+ YR, HIGH DOSE, QUADRIVALENT (FLUZONE HIGH-DOSE) Dia Older MANAGER PLAN.CHRISTMAS BELL RINGER Work Phone: Start: 05-18-2023 Radiologic examinati on of knee Dr. Ken Whelan Work Phone: Start: 05-18-2023 CT cervical spine wi thout contrast Dr. Ken Whelan Work Phone: Start: 05-18-[address] Ken Whelan Work Phone: Start: 05-18-2023 CT of head without contrast Dr. Ken Whelan Work Phone: Start: 01-09-2023 Diagnostic radiograp hy of abdomen Dr. Ken Whelan Work Phone: Start: 08-28-2022 Computed tomography of abdomen and pelvis with contrast Dr. Ken Whelan Work Phone: Start: 08-20-[address] Afia Whelan Work Phone: Start: 07-15-2022 Fundus photography w/interpretation & report Geoff Carlos MD Work Phone: Start: 06-19-2022 Urnls dip stick/tabl et rgnt auto w/o microscopy Jennifer Older MANAGER PLAN.CHRISTMAS BELL RINGER Work Phone: Start: 03-12-2022 End: 03-12-2022 Visual field xm uni/bi w/interp extended exam Geoff Carlos MD Work Phone: Start: 01-23-2022 Radiologic exam ches t 2 views Ken Whelan MD Work Phone: Start: 01-23-2022 PFIZER-BIONTECH COVI D-19 VACCINE, AGE 12+ YR (SEVILLA TOP) Ken Whelan MD Work Phone: Start: 04-15-2017 End: 07-23-2017 DMB Irene Arenas HOOP BENDING MACHINE OPERATOR Work Phone: Start: 04-15-2017 End: 07-23-2017 Follow Up Appt 3 months Irene rangel CHRISTMAS BELL RINGER Work Phone: Start: 03-05-2017 End: 03-05-2017 Thyrotropin [Units/volume] in Serum or Plasma Jaswant Luevano DO Work Phone: Start: 11-27-2016 End: 12-16-2016 DMB Irene Arenas HOOP BENDING MACHINE OPERATOR Work Phone: Start: 11-27-2016 End: 12-16-2016 Follow Up Appt 2 months Irene rangel CHRISTMAS BELL RINGER Work Phone: Start: 11-27-2016 End: 12-16-2016 Pulmonary Function Test - complete Irene Garcia CHRISTMAS BELL RINGER Work Phone: Start: 11-27-2016 End: 12-16-2016 Pulmonary stress test/simple Irene Garcia CHRISTMAS BELL RINGER Work Phone: Plan of Treatment Date Care Activity Detail Author Start: 04-16-2035 Urine microalbumin profile DTaP,Tdap,Td Vaccine (4 - Td or Tdap) [facility] Start: 05-21-2033 Urine microalbumin profile DTaP,Tdap,Td Vaccine (3 - Td or Tdap) [facility] Start: 01-27-2028 Diabetes Screening Diabetes Screening [facility] Start: 05-27-2027 Diabetes Screening Diabetes Screening [facility] Start: 10-05-2026 Diabetes Screening Diabetes Screening [facility] Start: 07-02-2026 Diabetes Screening Diabetes Screening [facility] Start: 02-20-2026 DIABETES SCREEN DIABETES SCREEN [facility] Start: 02-20-2026 Diabetes Screening Diabetes Screening [facility] Start: 01-26-2026 DIABETES SCREEN DIABETES SCREEN [facility] Start: 01-05-2026 Medicare Annual Wellness Visit Medicare Annual Wellness Visit [facility] Start: 10-12-2025 End: 10-12-2025 Patient encounter procedure 10/12/2025 3:00 PM EST Office Visit [facility] [employer] [address] [place] [address] Ken Whelan MD [address] [place] [address] medicare wellness 6 months [facility] [employer] Comment on above: medicare wellness 6 months Start: 10-11-2025 RSV Vaccine (1 - 1-dose 75+ series) RSV Vaccine (1 - 1-dose 75+ series) [facility] Comment on above: Postponed from 02/22/2012 (Declined at t his time) Start: 07-25-2025 DIABETES SCREEN DIABETES SCREEN [facility] Start: 05-27-2025 Covid-19 Vaccine ( season) Covid-19 Vaccine ( season) [facility] Comment on above: Postponed from 05/08/2024 (Declined at t his time) Start: 05-27-2025 Covid-19 Vaccine ( season) Covid-19 Vaccine ( season) [facility] Comment on above: Postponed from 05/08/2024 (Declined at t his time) Start: 05-08-2025 Influenza vaccination Influenza Vaccine (#1) [facility] Start: 04-20-2025 Patient discharge [facility] Start: 04-18-2025 Thiamine measurement [facility] Start: 04-17-2025 Oxygen therapy [facility] Start: 04-17-2025 Admission procedure [facility] Start: 04-17-2025 [facility] Start: 04-17-2025 Telemedicine consultation with patient [facility] Start: 04-17-2025 Following clinical pathway protocol [facility] Start: 04-17-2025 Assessment of risk of venous thromboembolism [facility] Start: 04-17-2025 Fall prevention [facility] Start: 04-17-2025 Incentive spirometry [facility] Start: 04-17-2025 Inhalation therapy procedure [facility] Start: 04-17-2025 Insertion of catheter into peripheral vein [facility] Start: 04-17-2025 Introduction of urinary catheter [facility] Start: 04-17-2025 Measuring intake and output [facility] Start: 04-17-2025 Oxygen therapy [facility] Start: 04-17-2025 Providing care according to standard [facility] Start: 04-17-2025 Provision of activity privileges [facility] Start: 04-17-2025 Referral to occupational therapist [facility] Start: 04-17-2025 Referral to service [facility] Start: 04-17-2025 [facility] Start: 04-17-2025 Verification routine [facility] Start: 04-17-2025 Admission procedure [facility] Start: 04-17-2025 Hospital admission, emergency, from emergency room, medical nature [facility] Start: 04-11-2025 End: 04-11-2025 Patient encounter procedure 04/11/2025 2:00 PM EDT Office Visit Internal Medicine [facility] [address] [place] [address] Dia Nixon, MANAGER PLAN.[facility] [address] [facility] [place] [address] medicare 6 months [facility] [employer] Comment on above: medicare 6 months Start: 04-07-2025 End: 04-07-2025 Patient encounter procedure 04/07/2025 10:30 AM EDT Office Visit Pulmonary Medicine [address] [place] [address] Ashely Luevano MD [address] [place] [address] SOB f/u Pulmonary Medicine Comment on above: SOB f/u Start: 04-04-2025 End: 04-04-2025 Patient encounter procedure 04/04/2025 2:45 PM EDT Office Visit Pulmonary Medicine [address] [place] [address] Ashely Luevano MD [address] [place] [address] 4m f/up [facility] Comment on above: 4m f/up Start: 03-23-2025 End: 03-23-2025 Patient encounter procedure 03/23/2025 1:15 PM EDT Office Visit Allergy [address] [address] Dian Rodas MD [address] [place], [place] [id number] I would like to know what reactions I might get. Allergy Comment on above: I would like to know what reactions I mi ght get. Start: 03-02-2025 End: 03-02-2025 Patient encounter procedure 03/02/2025 1:40 PM EDT Office Visit [facility] [place] [address] [place] [address] Ken Whelan MD [address] [place] [address] 4 week follow-up [facility] [place] Comment on above: 4 week follow-up Start: 02-14-2025 End: 02-14-2025 Patient encounter procedure 02/14/2025 1:15 PM EDT Office Visit Allergy [address] [address] Dian Rodas MD [address] [place] [address] I would like to know what reactions I might get. Allergy Comment on above: I would like to know what reactions I mi ght get. Start: 02-03-2025 End: 02-03-2025 ambulatory [facility] Comment on above: MARTINES (dyspnea on exertion) [R06.09] Start: 02-02-2025 End: 02-02-2025 Patient encounter procedure 02/02/2025 3:20 PM EDT Office Visit [facility] Medicine [place] [address] [place] [address] Ken Whelan MD [address] [place] [address] 4 week follow up [facility] [place] Comment on above: 4 week follow up Start: 01-26-2025 End: 04-27-2025 25-hydroxyvitamin D3 [Mass/volume] in Serum or Plasma VITAMIN D 25 HYDROXY Lab Routine Vitamin D deficiency Expected: 01/26/2025, Expires: 04/27/2025 [facility] Comment on above: Expected: 01/26/2025, Expires: Start: 01-26-2025 End: 04-27-2025 Basic metabolic 2000 panel - Serum or Plasma BASIC METABOLIC PANEL Lab Routine Stage 3 chronic kidney disease, unspecified whether stage 3a or 3b CKD (HCC) Expected: 01/26/2025, Expires: 04/27/2025 [facility] Work Phone: Comment on above: Expected: 01/26/2025, Expires: Start: 01-26-2025 End: 04-27-2025 Thyrotropin [Units/volume] in Serum or Plasma THYROID STIMULATING HORMONE Lab Routine Acquired hypothyroidism Expected: 01/26/2025, Expires: 04/27/2025 [facility] Comment on above: Expected: 01/26/2025, Expires: Start: 01-26-2025 End: 01-26-2025 ambulatory 01/26/2025 1:30 PM EDT Results Only [place] [facility] [address] [place] [address] [facility] Start: 01-25-2025 End: 01-25-2025 Patient encounter procedure 01/25/2025 4:00 PM EDT Office Visit Geriatrics [address] [place] [address] Cami Mars MD [address] [place] [address] 6 wk follow up Geriatrics Comment on above: 6 wk follow up Start: 01-16-2025 DIABETES SCREEN DIABETES SCREEN [facility] Start: 01-11-2025 End: 01-11-2025 Patient encounter procedure 01/11/2025 3:00 PM EDT Office Visit [facility]YSICAL MEDICINE & REHAB [address] [address] Ailyn Bonner, MANAGER PLAN.[employer] [address] [place] [address] Return in about 6 months (around 01/04/2025). [facility] Comment on above: Return in about 6 months (around 01/05/20). Start: 01-05-2025 End: 01-05-2025 Patient encounter procedure Internal Med amanda [place] Comment on above: 6 week f/u-lower back pain/hip pain wellness exam Start: 12-16-2024 End: 12-16-2024 Patient encounter procedure 12/16/2024 11:00 AM EDT Office Visit Orthopaedics [address] [address] Ruben Butler PA-C [address] [address] Left hip pain Orthopaedics Comment on above: Left hip pain Start: 12-14-2024 End: 03-15-2025 25-hydroxyvitamin D3 [Mass/volume] in Serum or Plasma [facility] Comment on above: Expected: 12/14/2024, Expires: Start: 12-14-2024 End: 03-15-2025 Ferritin [Mass/volume] in Serum or Plasma [facility] Comment on above: Expected: 12/14/2024, Expires: Start: 12-14-2024 End: 03-15-2025 Iron and Iron binding capacity panel - Serum or Plasma [facility] Work Phone: Comment on above: Expected: 12/14/2024, Expires: Start: 12-14-2024 End: 12-14-2024 Patient encounter procedure 12/14/2024 1:30 PM EDT Office Visit Geriatrics [address] [place] [address] Cami Mars MD [address] [place] [address] Fatigue, unspecified type [R53.83] Geriatrics Comment on above: Fatigue, unspecified type [R53.83] Start: 10-20-2024 End: 10-20-2024 Patient encounter procedure 10/20/2024 1:30 PM EST Office Visit Pulmonary Medicine [address] [facility] [place] [address] Ashely Luevano MD [address] [facility] [place] [address] Bronchiectasis without complication (HCC) [J47.9]; Nocturnal hypoxia [G47.34] Pulmonary Medicine Comment on above: Bronchiectasis without complication (HCC ) [J47.9]; Nocturnal hypoxia [G47.34] Start: 10-11-2024 End: 10-11-2024 Patient encounter procedure 10/11/2024 2:40 PM EST Office Visit Internal Medicine [place] [address] [place] [address] Dia Nixon, MANAGER PLAN.[employer] [address] [place] [address] 6 mo follow up Internal Medicine [place] Comment on above: 6 mo follow up Start: 10-04-2024 End: 10-04-2024 Patient encounter procedure 10/04/2024 2:40 PM EST Office Visit Internal Medicine [employer] [address] [place] [address] Dia Nixon, MANAGER PLAN.[employer] [address] [place] [address] 6 mo follow up Internal Medicine [place] Comment on above: 6 mo follow up Start: 09-30-2024 End: 09-30-2024 Patient encounter procedure 09/30/2024 2:20 PM EST Office Visit Internal Medicine [employer] [address] [place] [address] Dia Nixon, MANAGER PLAN.[employer] [address] [place] [address] 6 month follow up Internal Medicine [employer] Comment on above: 6 month follow up Start: 09-30-2024 Covid-19 Vaccine () Covid-19 Vaccine () [facility] Comment on above: Postponed from 05/08/2023 (Declined at t his time) Start: 09-07-2024 Advance Directive Discussion Advance Directive Discussion [facility] Start: 09-05-2024 [facility] Start: 09-05-2024 [facility] Start: 08-08-2024 Incentive spirometry [facility] Start: 08-08-2024 End: 08-08-2024 [facility] Start: 07-18-2024 DIABETES SCREEN DIABETES SCREEN [facility] Start: 07-08-2024 End: 07-08-2024 Patient encounter procedure Neurology Comment on above: follow up after sleep test follow up after slee p test, need results from [facility] Start: 07-06-2024 End: 07-06-2024 Patient encounter procedure 07/06/2024 3:00 PM EDT Office Visit PHYSICAL MEDICINE & REHAB [address] [address] Ailyn Bonner, MANAGER PLAN.[employer] [address] [place] [address] 6 month follow up [facility] Comment on above: 6 month follow up Start: 06-23-2024 End: 06-23-2024 ambulatory 06/23/2024 1:15 PM EDT OT/PT/Speech Visit [facility] [address] [place] [address] Jackie Lainez PT I60.9 (ICD-10-CM) - Subarachnoid hemorrhage (HCC) [facility] Comment on above: I60.9 (ICD-10-CM) - Subarachnoid hemorrh age (HCC) Start: 06-16-2024 End: 06-16-2024 ambulatory 06/16/2024 1:15 PM EDT OT/PT/Speech Visit [facility] [address] [place] [address] Jackie Lainez, PT I60.9 (ICD-10-CM) - Subarachnoid hemorrhage (HCC) [facility] Comment on above: I60.9 (ICD-10-CM) - Subarachnoid hemorrh age (HCC) Start: 06-09-2024 End: 06-09-2024 ambulatory 06/09/2024 11:45 AM EDT OT/PT/Speech Visit [facility] [address] [place] [address] Kaela Brasher, [facility] [address] [place] [address] I60.9 (ICD-10-CM) - Subarachnoid hemorrhage (HCC) [facility] Comment on above: I60.9 (ICD-10-CM) - Subarachnoid hemorrh age (HCC) Start: 06-02-2024 End: 06-02-2024 ambulatory 06/02/2024 1:15 PM EDT OT/PT/Speech Visit [facility] [address] [place] [address] Jackie Lainez, PT I60.9 (ICD-10-CM) - Subarachnoid hemorrhage (HCC) [facility] Comment on above: I60.9 (ICD-10-CM) - Subarachnoid hemorrh age (HCC) Start: 05-27-2024 End: 08-26-2024 Basic metabolic 2000 panel - Serum or Plasma [facility] Comment on above: Expected: 05/27/2024, Expires: Start: 05-27-2024 End: 08-26-2024 Natriuretic peptide.B prohormone N-Terminal [Mass/volume] in Serum or Plasma [facility] Comment on above: Expected: 05/27/2024, Expires: Start: 05-27-2024 End: 05-27-2024 Patient encounter procedure 05/27/2024 8:00 AM EDT Office Visit Internal Medicine [place] [address] [place] [address] Ken Whelan MD [address] [place] [address] follow up per PT Internal Medicine [employer] Comment on above: follow up per PT Start: 05-26-2024 End: 05-26-2024 ambulatory 05/26/2024 3:45 PM EDT OT/PT/Speech Visit [facility] [address] [place] [address] Jackie Lainez, PT I60.9 (ICD-10-CM) - Subarachnoid hemorrhage (HCC) [facility] Comment on above: I60.9 (ICD-10-CM) - Subarachnoid hemorrh age (HCC) Start: 05-26-2024 End: 05-26-2024 Patient encounter procedure 05/26/2024 1:50 PM EDT Office Visit Cardiology [address] [place] [address] Chest discomfort [R07.89] Cardiology Comment on above: Chest discomfort [R07.89] Start: 05-19-2024 End: 05-19-2024 ambulatory 05/19/2024 12:30 PM EDT OT/PT/Speech Visit [facility] [address] [place] [address] Jackie Lainez, PT I60.9 (ICD-10-CM) - Subarachnoid hemorrhage (HCC) [facility] Comment on above: I60.9 (ICD-10-CM) - Subarachnoid hemorrh age (HCC) Start: 05-16-2024 End: 05-16-2024 Patient encounter procedure 05/16/2024 11:30 AM EDT Office Visit Otolaryngology [address] [place] [address] Rhoda Santiago MD [address] [place], [place] [id number] Odynophagia [R13.10] Otolaryngology Comment on above: Odynophagia [R13.10] Start: 05-13-2024 End: 05-13-2024 Patient encounter procedure 05/13/2024 9:40 AM EDT Office Visit Internal Medicine [place] [address] [facility] [place] [address] Dia Nixon, MANAGER PLAN.[employer] [address] [place] [address] Evaluate for hypoxia per [facility] Internal Medicine [employer] Comment on above: Evaluate for hypoxia per [facility] Start: 05-12-2024 End: 05-12-2024 ambulatory 05/12/2024 11:45 AM EDT OT/PT/Speech Visit [facility] [address] [place], [place] [id number] Kaela Brasher, DIONI [address] [place] [address] I60.9 (ICD-10-CM) - Subarachnoid hemorrhage (HCC) [facility] Comment on above: I60.9 (ICD-10-CM) - Subarachnoid hemorrh age (HCC) Start: 05-08-2024 Covid-19 Vaccine ( season) Covid-19 Vaccine () [facility] Start: 05-08-2024 Influenza vaccination Influenza Vaccine (#1) [facility] Start: 05-05-2024 End: 05-05-2024 ambulatory 05/05/2024 12:30 PM EDT OT/PT/Speech Visit [facility] [address] [place] [address] Jackie Lainez PT I60.9 (ICD-10-CM) - Subarachnoid hemorrhage (HCC) 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]; Insomnia, unspecified type [G47.00]; Snoring [R06.83] Neurology Comment on above: Hypersomnia [G47.10]; Delayed sleep phas e syndrome [G47.21]; Insomnia, unspecified type [G47.00]; Snoring [R06.83] Start: 04-26-2024 End: 04-26-2024 ambulatory 04/26/2024 3:00 PM EDT OT/PT/Speech Visit [facility] [address] [place] [address] Jackie Lainez PT Subarachnoid hemorrhage (HCC) [I60.9] [facility] Comment on above: Subarachnoid hemorrhage (HCC) [I60.9] Start: 04-21-2024 End: 04-21-2024 Follow-up encounter 04/21/2024 1:00 PM EDT [facility] [address] [facility] [place] [phone] Michelle Reagan APRN.[facility] [address] [place] [address] 3 month follow up. Please call [phone] [facility] Comment on above: 3 month follow up. Please call [phone] Start: 04-18-2024 End: 04-18-2024 Patient encounter procedure 04/18/2024 8:00 AM EDT Office Visit Neurology [address] [place] [address] Kaya Moon Jr., MD [address] [phone] Sleep apnea, unspecified type [G47.30] Neurology Comment on above: Sleep apnea, unspecified type [G47.30] Start: 03-30-2024 End: 03-30-2024 Patient encounter procedure 03/30/2024 3:00 PM EDT Office Visit Internal Medicine [place] [address] [place] [address] Dia Nixon, MANAGER PLAN.[employer] [address] [place] [address] 6 month follow up Internal Medicine [place] Comment on above: 6 month follow up Start: 02-26-2024 End: 02-26-2024 Patient encounter procedure 02/26/2024 1:00 PM EDT OT/PT/Speech Visit [facility] [place] [phone] Jose Rodriguez CCC-[employer]ICLE PRINTER [address] [place] [address] Personal history of traumatic brain injury [facility] Comment on above: Personal history of traumatic brain inju ry Start: 01-27-2024 End: 01-27-2024 Patient encounter procedure 01/27/2024 3:30 PM EDT OT/PT/Speech Visit [facility] [place] [phone] Jose Rodriguez CCC-RETICLE PRINTER [address] [place] [address] Personal history of traumatic brain injury [Z87.820] [facility] Comment on above: Personal history of traumatic brain inju ry [Z87.820] Start: 01-21-2024 End: 01-21-2024 Patient encounter procedure 01/21/2024 2:00 PM EDT Office Visit [facility] [address] [facility] [phone] Michelle Reagan, MANAGER PLAN.[employer] [address] [facility] [place] [address] 3 mos fu [facility] Comment on above: 3 mos fu Start: 10-02-2023 [facility] Start: 08-01-2023 COVID-19 VACCINE (4 - Booster for Leon series) COVID-19 VACCINE (4 - Booster for Leon series) [facility] Comment on above: Postponed from 03/20/2022 (Declined at t his time) Start: 06-19-2023 Urine microalbumin profile DTAP,TDAP,TD (2 - Td or Tdap) [facility] Comment on above: Postponed from 06/22/2022 (Declined at t his time) Start: 05-08-2023 Covid-19 Vaccine ( season) Covid-19 Vaccine ( season) [facility] Start: 05-08-2023 Influenza vaccination INFLUENZA (#1) [facility] Start: 03-06-2023 Influenza vaccination INFLUENZA (#1) [facility] Comment on above: Postponed from 05/08/2022 (Declined at t his time) Start: 01-29-2023 End: 03-31-2023 Basic metabolic 2000 panel - Serum or Plasma BASIC METABOLIC PNL Lab Routine Essential hypertension Expected: 01/29/2023, Expires: 03/31/2023 [facility] Work Phone: Comment on above: Expected: 01/29/2023, Expires: 3 Start: 01-29-2023 End: 03-31-2023 Thyrotropin [Units/volume] in Serum or Plasma TSH BLD Lab Routine Acquired hypothyroidism Expected: 01/29/2023, Expires: 03/31/2023 [facility] Work Phone: Comment on above: Expected: 01/29/2023, Expires: 3 Start: 09-07-2022 ADVANCE DIRECTIVE DISCUSSION ADVANCE DIRECTIVE DISCUSSION [facility] Start: 07-26-2022 End: 09-25-2022 ALK PHOS ISOENZYM BL ALK PHOS ISOENZYM BL Lab Routine Elevated alkaline phosphatase measurement Expected: 07/26/2022, Expires: 09/25/2022 [facility] Work Phone: Comment on above: Expected: 07/26/2022, Expires: 3 Start: 07-26-2022 End: 09-25-2022 Basic metabolic 2000 panel - Serum or Plasma BASIC METABOLIC PNL Lab Routine Essential hypertension Expected: 07/26/2022, Expires: 09/25/2022 [facility] Work Phone: Comment on above: Expected: 07/26/2022, Expires: 3 Start: 07-26-2022 End: 09-25-2022 CBC panel - Blood by Automated count CBC Lab Routine Essential hypertension Expected: 07/26/2022, Expires: 09/25/2022 [facility] Work Phone: Comment on above: Expected: 07/26/2022, Expires: 3 Start: 07-26-2022 End: 09-25-2022 LIPID PANEL BASIC LIPID PANEL BASIC Lab Routine Essential hypertension Expected: 07/26/2022, Expires: 09/25/2022 [facility] Work Phone: Comment on above: Expected: 07/26/2022, Expires: 3 Start: 07-26-2022 End: 09-25-2022 VITAMIN D 25 HYDROXY VITAMIN D 25 HYDROXY Lab Routine Vitamin D deficiency Expected: 07/26/2022, Expires: 09/25/2022 [facility] Work Phone: Comment on above: Expected: 07/26/2022, Expires: 3 Start: 07-07-2022 End: 09-06-2022 Bacteria identified in Urine by Culture URINE CULTURE Microbiology Routine Recurrent UTI (urinary tract infection) Expected: 07/07/2022 (Approximate), Expires: 09/06/2022 [facility] Work Phone: Comment on above: Expected: 07/07/2022 (Approximate), Expi res: 09/06/2022 Start: 07-07-2022 End: 09-06-2022 Urinalysis complete panel - Urine URINALYSIS, WITH MICROSCOPIC Lab Routine Recurrent UTI (urinary tract infection) Expected: 07/07/2022 (Approximate), Expires: 09/06/2022 [facility] Work Phone: Comment on above: Expected: 07/07/2022 (Approximate), Expi res: 09/06/2022 Start: 06-22-2022 Urine microalbumin profile DTAP,TDAP,TD (2 - Td or Tdap) [facility] Start: 05-08-2022 Influenza vaccination INFLUENZA (#1) [facility] Start: 03-20-2022 COVID-19 VACCINE (4 - Booster for Leon series) COVID-19 VACCINE (4 - Booster for Leon series) [facility] Start: 12-31-2021 SHINGRIX VACCINE (3 of 3) SHINGRIX VACCINE (3 of 3) [facility] Start: 09-07-2021 ADVANCE DIRECTIVE DISCUSSION ADVANCE DIRECTIVE DISCUSSION [facility] Start: 01-20-2018 End: 01-20-2018 Appointment Appointment [facility] Phone: Start: 07-27-2017 End: 07-27-2017 Appointment Appointment [facility] Phone: Start: 07-27-2017 End: 04-15-2017 Ct thorax w/o contrast material CT Chest without contrast [facility] Phone: Start: 07-24-2017 End: 07-24-2017 [facility] Phone: Start: 07-24-2017 End: 07-24-2017 Follow Up Appt 6 months Follow Up Appt 6 months [facility] Phone: Start: 07-24-2017 End: 07-24-2017 Appointment Appointment [facility] Phone: Start: 05-05-2017 End: 05-05-2017 Esophagogastroduodenoscopy transoral diagnostic EGD; diagnostic [facility] Phone: Start: 04-15-2017 End: 07-23-2017 D[facility] D[facility] Phone: Start: 04-15-2017 End: 07-23-2017 Follow Up Appt 3 months Follow Up Appt 3 months [facility] Work Phone: Start: 03-05-2017 End: 03-05-2017 [facility] Work Phone: Start: 03-05-2017 End: 03-05-2017 Follow Up Appt 6 weeks Follow Up Appt 6 weeks [facility] Work Phone: Start: 03-05-2017 End: 03-05-2017 Thyroid stimulating hormone (TSH) *TSH [facility] Work Phone: Start: 02-23-2017 End: 02-23-2017 Follow Up as scheduled Follow Up as scheduled [facility] Work Phone: Start: 01-08-2017 End: 01-11-2017 Ct thorax w/o contrast material CT Chest without contrast [facility] Phone: Start: 01-08-2017 End: 01-08-2017 DMB D[facility] Work Phone: Start: 01-08-2017 End: 01-08-2017 Follow Up Appt 2 months Follow Up Appt 2 months [facility] Work Phone: Start: 11-27-2016 End: 12-16-2016 DMB D[facility] Work Phone: Start: 11-27-2016 End: 12-16-2016 Follow Up Appt 2 months Follow Up Appt 2 months [facility] Work Phone: Start: 11-27-2016 End: 12-16-2016 Pulmonary Function Test - complete Pulmonary Function Test - complete [facility] Work Phone: Start: 11-27-2016 End: 12-16-2016 Pulmonary stress test/simple Pulmonary stress testing; simple (eg, 6-minute walk) [facility] Phone: Start: 02-22-2012 RSV Vaccine (1 - 1-dose 75+ series) RSV Vaccine (1 - 1-dose 75+ series) [facility] Start: 11-12-2011 SHINGRIX VACCINE (2 of 3) SHINGRIX VACCINE (2 of 3) [facility] Start: 1997 RSV Vaccine (1 - 1-dose 60+ series) RSV Vaccine (1 - 1-dose 60+ series) [facility] Anion gap in Serum or Plasma [facility] Bacteria identified in Urine by Culture URINE CULTURE Microbiology Routine Dysuria 06/19/2022 1:19 PM EDT [facility] Work Phone: BUN/Creatinine ratio [facility] Calcium [Mass/volume ] in Serum or Plasma [facility] Carbon dioxide, tota l [Moles/volume] in Central venous blood [facility] Creatinine [Mass/vol ume] in Serum or Plasma [facility] ECG COMPLETE ECG COMPLETE ECG Routine Chest discomfort Ordered: 05/13/2024 [facility] Work Phone: Comment on above: Ordered: 05/13/2024 End: 05-13-2025 Echocardiography ECHO Cardiology Routine Chest discomfort Nocturnal hypoxia 1 Occurrences starting 05/13/2024 until 05/13/2025 [facility] Comment on above: 1 Occurrences starting 05/13/2024 until 05/13/2025 Erythrocyte mean cor puscular volume determination [facility] Glucose [Mass/volume ] in Serum or Plasma [facility] Hematocrit [Volume F raction] of Blood [facility] Hemoglobin [Mass/vol ume] in Blood [facility] HOME SLEEP APNEA TEST (HSAT) PANCHO E SLEEP APNEA TEST (HSAT) Procedures Routine Hypersomnia Delayed sleep phase syndrome Insomnia, unspecified type Snoring 1 Occurrences starting 04/18/2024 [facility] Work Phone: Comment on above: 1 Occurrences starting 04/18/2024 Leukocytes [#/volume] in Blood [facility] LUNG VOLUMES LUNG VOLUMES PFT Routine MARTINES (dyspnea on exertion) 02/03/2025 2:22 PM EDT [facility] Work Phone: End: 08-06-2024 SOPHIE DIAGNOSTIC LEFT SOPHIE DIAGNOSTIC LEFT Radiology Routine Abnormal screening mammogram 1 Occurrences starting 07/08/2023 until 08/06/2024 [facility] Work Phone: Comment on above: 1 Occurrences starting 07/08/2023 until 08/06/2024 End: 06-19-2024 SOPHIE SCREENING SOPHIE SCREENING Radiology Routine Screening mammogram for breast cancer 1 Occurrences starting 05/21/2023 until 06/19/2024 [facility] Work Phone: Comment on above: 1 Occurrences starting 05/21/2023 until 06/19/2024 Mean corpuscular hem oglobin concentration determination [facility] Mean corpuscular hem oglobin determination [facility] Measurement of renal function [facility] Neutrophil count [facility] Neutrophil percent d ifferential count [facility] OXIMETRY - NOCTURNAL OXIMETRY - NOCTURNAL Procedures Routine Pulmonary hypertension (HCC) Ordered: 10/20/2024 [facility] Work Phone: Comment on above: Ordered: 10/20/2024 OXIMETRY - NOCTURNAL OXIMETRY - NOCTURNAL Procedures Routine Chronic obstructive pulmonary disease, unspecified COPD type (HCC) Ordered: 12/13/2024 [facility] Work Phone: Comment on above: Ordered: 12/13/2024 Patient Education [facility] [employer] Work Phone: Patient referral [facility] Work Phone: Platelets [#/volume] in Blood [facility] End: 05-16-2025 Polysomnogram POLYSOMNOGRAM (PSG) Procedures Routine Nocturnal hypoxia Sleep apnea-like behavior Class 1 obesity with body mass index (BMI) of 31.0 to 31.9 in adult, unspecified obesity type, unspecified whether serious comorbidity present Hypersomnia Insomnia, unspecified type Snoring 1 Occurrences starting 05/16/2024 until 05/16/2025 [facility] Work Phone: Comment on above: 1 Occurrences starting 05/16/2024 until 05/16/2025 Potassium measurement [facility] Red blood cell count [facility] Red cell distributio n width determination [facility] Serum chloride measurement [facility] Sodium measurement [facility] SPIROMETRY - BASELIN E AND POST DILATOR SPIROMETRY - BASELINE AND POST DILATOR PFT Routine MARTINES (dyspnea on exertion) 02/03/2025 2:22 PM EDT [facility] Work Phone: Urea nitrogen [Mass/ volume] in Serum or Plasma [facility] End: 08-06-2024 US BREAST LTD LEFT US BREAST LTD LEFT Radiology Routine Abnormal screening mammogram 1 Occurrences starting 07/08/2023 until 08/06/2024 [facility] Work Phone: Comment on above: 1 Occurrences starting 07/08/2023 until 08/06/2024 End: 06-26-2025 XR Chest PA and Lateral XR CHEST 2V FRONTAL/LAT Radiology Routine Oxygen desaturation 1 Occurrences starting 05/27/2024 until 06/26/2025 [facility] Work Phone: Comment on above: 1 Occurrences starting 05/27/2024 until 06/26/2025 XR Chest PA and Lateral XR CHEST 2V FRONTAL/LAT Radiology Routine Oxygen desaturation 05/27/2024 9:18 AM EDT [facility] XR Pelvis and Hip - left AP and Lateral frog XR HIP GENERAL 3V PELV/AP/LAT LEFT Radiology Routine Hip pain, left 11/24/2024 7:04 PM EDT [facility] Work Phone: End: 12-24-2025 XR Pelvis and Hip - left AP and Lateral frog XR HIP GENERAL 3V PELV/AP/LAT LEFT Radiology Routine Hip pain, left 1 Occurrences starting 11/24/2024 until 12/24/2025 [facility] Work Phone: Comment on above: 1 Occurrences starting 11/24/2024 until 12/24/2025 [facility] Immunizations Immunization Date Immunization Notes Care Provider Jeramy rain 04-16-2025 tetanus toxoid, redu natalee diphtheria toxoid, and acellular pertussis vaccine, adsorbed Dr. Ken Whelan MD Work Phone: [facility] 11-02-2024 respiratory syncytia l virus (RSV) vaccine, adjuvanted (AREXVY) Dian Rodas MD Work Phone: [facility] 05-27-2024 influenza, high dose seasonal, preservative-free Ken Whelan MD Work Phone: [facility] 05-27-2024 influenza virus vaccine, unspecified formulation Dia Hussain MANAGER PLAN.CHRISTMAS BELL RINGER Work Phone: [facility] 05-21-2023 TD(adult) unspecifie d formulation Dia Older MANAGER PLAN.CHRISTMAS BELL RINGER Work Phone: [facility] Work Phone: 05-21-2023 influenza (HD-IIV4) vaccine, age 65+ yr, high dose, quadrivalent, PF (FLUZONE HIGH-DOSE) Dia Older MANAGER PLAN.CHRISTMAS BELL RINGER Work Phone: [facility] 05-21-2023 tetanus and diphther ia toxoids, adsorbed, preservative free, for adult use (2 Lf of tetanus toxoid and 2 Lf of diphtheria toxoid) Dr. Ken Whelan MD Work Phone: [facility] 05-21-2023 tetanus and diphther ia toxoids, adsorbed, preservative free, for adult use (5 Lf of tetanus toxoid and 2 Lf of diphtheria toxoid) Dia Older MANAGER PLAN.CHRISTMAS BELL RINGER Work Phone: [facility] 05-21-2023 influenza virus vaccine, unspecified formulation Dia Hussain MANAGER PLAN.CHRISTMAS BELL RINGER Work Phone: [facility] 08-19-2022 influenza, injectabl e, quadrivalent, preservative free Dr. Ken Whelan Work Phone: [facility] 08-19-2022 influenza, seasonal, injectable Dr. Ken Whelan Work Phone: [facility] 04-14-2022 zoster vaccine recombinant Ken Whelan MD Work Phone: [facility] 01-23-2022 Covid (Pfizer) Dr. Ken mckeon MD Work Phone: [facility] 01-23-2022 COVID-19 vaccine, ag e 12+ yr (PFIZER-[employer] GROUPNT[employer]BB[employer] - [facility]) Ken Whelan MD Work Phone: [facility] Work Phone: 11-05-2021 zoster vaccine recombinant Ken Whelan MD Work Phone: [facility] Work Phone: 08-15-2021 Covid ([employer]) Dr. Ken Whelan MD Work Phone: [facility] 05-30-2021 influenza, injectabl e, quadrivalent, preservative free Dr. Ken Whelan Work Phone: [facility] 05-30-2021 influenza, seasonal, injectable Dr. Ken Whelan Work Phone: [facility] Work Phone: 05-30-2021 influenza, seasonal, injectable, preservative free Dia Older MANAGER PLAN.CHRISTMAS BELL RINGER Work Phone: [facility] Work Phone: 11-15-2020 COVID-19 vaccine (LEON) Dia Older MANAGER PLAN.CHRISTMAS BELL RINGER Work Phone: [facility] Work Phone: 07-04-2020 influenza, high-dose , quadrivalent vaccine (FLUZONE HIGH DOSE QUADRIVALENT) Dia Older MANAGER PLAN.CHRISTMAS BELL RINGER Work Phone: [facility] Work Phone: 07-07-2019 influenza, high dose seasonal, preservative-free Dia Older MANAGER PLAN.CHRISTMAS BELL RINGER Work Phone: [facility] Work Phone: 06-30-2018 influenza, high dose seasonal, preservative-free Dia Older MANAGER PLAN.CHRISTMAS BELL RINGER Work Phone: [facility] Work Phone: 06-24-2017 influenza, high dose seasonal, preservative-free Dia Older MANAGER PLAN.CHRISTMAS BELL RINGER Work Phone: [facility] 06-24-2017 pneumococcal polysaccharide vaccine, 23 valent Dia Older MANAGER PLAN.CHRISTMAS BELL RINGER Work Phone: [facility] 05-20-2016 influenza, high dose seasonal, preservative-free Dia Older MANAGER PLAN.CHRISTMAS BELL RINGER Work Phone: [facility] 05-12-[address] Ken Whelan Work Phone: [facility] 05-12-2016 influenza, seasonal, injectable, preservative free Dia Older MANAGER PLAN.CHRISTMAS BELL RINGER Work Phone: [facility] Work Phone: 09-24-2015 influenza, high dose seasonal, preservative-free Dia Older MANAGER PLAN.CHRISTMAS BELL RINGER Work Phone: [facility] 09-12-2014 pneumococcal conjuga te vaccine, 13 valent Dia Older MANAGER PLAN.CHRISTMAS BELL RINGER Work Phone: [facility] 08-07-2014 influenza, injectabl e, quadrivalent, preservative free Dr. Ken Whelan MD Work Phone: [facility] 08-07-2014 influenza, seasonal, injectable Dia Older MANAGER PLAN.CHRISTMAS BELL RINGER Work Phone: [facility] Work Phone: 06-27-2013 influenza virus vaccine, unspecified formulation Dia Older MANAGER PLAN.CHRISTMAS BELL RINGER Work Phone: [facility] 06-22-2012 influenza virus vaccine, unspecified formulation Dia Older MANAGER PLAN.CHRISTMAS BELL RINGER Work Phone: [facility] 06-22-2012 tetanus toxoid, redu natalee diphtheria toxoid, and acellular pertussis vaccine, adsorbed Dia Older MANAGER PLAN.CHRISTMAS BELL RINGER Work Phone: [facility] 09-17-2011 zoster vaccine, live Dia Old er MANAGER PLAN.CHRISTMAS BELL RINGER Work Phone: [facility] 06-19-2011 influenza virus vaccine, unspecified formulation Dia Older MANAGER PLAN.[facility] Work Phone: [facility] 06-18-2010 influenza virus vaccine, unspecified formulation Dia Older MANAGER PLAN.CHRISTMAS BELL RINGER Work Phone: [facility] 06-07-2009 influenza virus vaccine, unspecified formulation Dia Older MANAGER PLAN.CHRISTMAS BELL RINGER Work Phone: [facility] Work Phone: 07-18-2008 influenza virus vaccine, unspecified formulation Dia Older MANAGER PLAN.[facility] Work Phone: [facility] Work Phone: 07-12-2007 influenza virus vaccine, unspecified formulation Dia Older MANAGER PLAN.[facility] Work Phone: [facility] Work Phone: 07-06-2006 influenza virus vaccine, unspecified formulation Dia Older MANAGER PLAN.[facility] Work Phone: [facility] 10-06-2005 pneumococcal polysaccharide vaccine, 23 valent Dia Older MANAGER PLAN.CHRISTMAS BELL RINGER Work Phone: [facility] 08-13-2005 influenza virus vaccine, unspecified formulation Dia Older MANAGER PLAN.[facility] Work Phone: [facility] 01-03-2004 hepatitis B vaccine, adult dosage Dia Older MANAGER PLAN.[facility] Work Phone: [facility] Work Phone: 06-14-2003 hepatitis B vaccine, adult dosage Dia Older MANAGER PLAN.CHRISTMAS BELL RINGER Work Phone: [facility] Work Phone: 05-15-2003 hepatitis B vaccine, adult dosage Dia Older MANAGER PLAN.[facility] Work Phone: [facility] Work Phone: Payers Date Payer Category Payer Self-pay [id number] 2016 [facility] SUPPLE[facility] [id number] 2016 Unknown ANTHEM ANTHEM ME DICARE SUPPLEMENT [id number] 2016-Present [phone] [id number] [place] [phone] Indemnity [id number] 2016 Unknown ANTHEM ANTHEM ME DICARE SUPPLEMENT [id number] 2016-Present [phone] [id number] [place] [id number] Indemnity [id number] 2016 Unknown [id number] 2002 Medicare MEDICARE MEDICAR E A AND B [id number] 2002-Present [phone] [place] [address] Medicare [id number] 2002 Medicare [id number] 2002 Medicare [id number] Unknown [id number]. 2.462 Unknown [id number] 2.16.840.1.867493.3.579. 2.462 Unknown [id number] 2.16.840.1.307169.3.579. 2.462 Unknown [id number] 2.16.840.1.810854.3.579. 2.462 Unknown [id number] 2.16.840.1.761712.3.579. 2.462 Unknown [id number] 2.16840.1.404607.3.579. 2.462 Unknown [id number] 2.840.1.956016.3.579. 2.462 Unknown [id number] 2.840.1.356713.3.579. 2.462 Unknown [id number] 2.840.1.426401.3.579. 2.462 Unknown [id number] 2.840.1.706878.3.579. 2.462 Unknown [id number] 2.840.1.243608.3.579. 2.462 Unknown [id number] 2.840.1.744453.3.579. 2.462 Unknown [id number] 2.840.1.794726.3.579. 2.462 Unknown [id number] 2.840.1.423026.3.579. 2.462 Unknown [id number] 2.840.1.868778.3.579. 2.462 Unknown [id number] 2.840.1.141841.3.579. 2.462 Unknown [id number] 2.840.1.152374.3.579. 2.462 Unknown [id number] 2.840.1.945262.3.579. 2.462 Unknown [id number] 2.840.1.507212.3.579. 2.462 Unknown [id number] 2.840.1.591629.3.579. 2.462 Unknown [id number] 2.840.1.578819.3.579. 2.462 Unknown [id number] 2.840.1.336592.3.579. 2.462 Unknown [id number] 2.840.1.085846.3.579. 2.462 Unknown [id number] 2.0.1.163121.3.579. 2.462 Unknown [id number] 20.1.100046.3.579. 2.462 Social History Date Type Detail Facility Start: 12-15-2011 End: 04-17-2025 Tobacco smoking status NHIS Ex-smoker [facility] Start: 05-14-1955 End: 05-14-1965 History of tobacco use Current smoker [facility] Start: 05-14-1955 End: 05-14-1965 History of tobacco use Cigarette Smoker [facility] Start: 10-08-2021 End: 04-11-2025 Alcohol intake Current drinker of alcohol (finding) [facility] Start: 07-23-2020 End: 08-01-2022 History SDOH Alcohol Frequency 3 [facility] Start: 07-23-2020 End: 08-01-2022 History SDOH Alcohol Std Drinks 1 [facility] Start: 05-01-2021 History SDOH Alcohol Comment 1/2 glass of wine twice per month [facility] Start: 01-03-2020 End: 08-01-2022 History SDOH Social Connections Phone 5 [facility] Start: 07-03-2020 End: 08-01-2022 History SDOH Social Connections Get Together 2 [facility] Start: 07-03-2020 End: 08-01-2022 History SDOH Social Connections [facility] Start: 01-03-2020 History SDOH Physica l Activity DPW 0 [facility] Start: 01-03-2020 Education 21 [facility] Start: 1935 Sex Assigned At Female C [facility] Start: 10-01-2021 End: 10-02-2023 Tobacco smoking status TXIS Unknown if ever smoked [facility] Start: 11-18-2016 None [facility] Start: 11-18-2016 With Family [facility] Start: 11-18-2016 Non-smoker [facility] Start: 01-13-2022 End: 07-15-2022 Exposure to SARS-CoV-2 (event) Not sure [facility] Work Phone: Start: 12-15-2011 End: 01-30-2023 Cigarettes smoked current (pack per day) - Reported 0.5 [facility] Start: 12-15-2011 End: 05-13-2024 Tobacco use and exposure Smokeless tobacco non-user [facility] Start: 08-01-2022 End: 01-30-2023 Social connection and isolation panel [facility] Start: 08-08-2012 How often do you get together with friends or relatives? Patient refused [facility] Are you now , , , , never or living with a partner? [facility] How often to you hav e a drink containing alcohol? 2-4 times a month [facility] How many standard drinks containing alcohol do you have on a typical day? 1 or 2 [facility] How often do you hav e 6 or more drinks on 1 occasion? Never [facility] Do you feel stress - tense, restless, nervous, or anxious, or unable to sleep at night because your mind is troubled all the time - these days [OSQ] Only a little [facility] The food that (I/we) bought just didn't last, and (I/we) didn't have money to get more. Never true [facility] In the past 12 month s, was there a time when you were not able to pay the mortgage or rent on time? No [facility] Start: 01-03-2020 Gender identity Identifies as female gender (finding) [facility] Start: 01-03-2020 Sexual orientation Heterosexual (ray murray) [facility] Are you now , , , , never or living with a partner? Living with partner [facility] How often to you hav e a drink containing alcohol? Monthly or less [facility] History of tobacco use Passive smoker [facility] Do you feel stress - tense, restless, nervous, or anxious, or unable to sleep at night because your mind is troubled all the time - these days [OSQ] Not at all [facility] Start: 11-22-2024 Sex Female (finding) [facility] Medical Equipment Procedure Code Equipment Code Equipment Origin al Text Equipment Identifier Dates ([id number]) Dual-chamber implantable pacemaker, rate-responsive ()[id number] FDA Start: 05-29-2021 ([id number]) Endocardial paci ng lead ()[id number] FDA Start: 05-29-2021 ([id number]) Endocardial paci ng lead ()[id number] FDA Start: 05-29-2021 Goals Date Patient Goal Desired Activity /State Functional Status Date Assessment Result Facility 04-20-2025 Functional status Ambulates [facility] Work Phone: 04-19-2025 Functional status Ambulates [facility] Work Phone: 04-17-2025 Functional status Ambulates [facility] Work Phone: 04-13-2015 Are you deaf, or do you have serious difficulty hearing No 04/13/2015 2:32 PM Shayla Dunlap MA No [facility] 04-13-2015 Are you blind, or do you have serious difficulty seeing, even when wearing glasses No 04/13/2015 2:32 PM Shayla Dunlap MA No [facility] 04-13-2015 Do you have serious difficulty walking or climbing stairs No 04/13/2015 2:32 PM Shayla Dunlap MA No [facility] 04-13-2015 Do you have difficul ty dressing or bathing No 04/13/2015 2:32 PM Shayla Dunlap MA No [facility] 04-13-2015 Because of a physica l, mental, or emotional condition, do you have difficulty doing errands alone such as visiting a physician's office or shopping No 04/13/2015 2:32 PM Shayla Dunlap MA No [facility] Mental Status Date Assessment Result Facility 04-20-2025 Cognitive function Voice/Name [facility] Work Phone: 04-19-2025 Cognitive function Voice/Name [facility] Work Phone: 04-17-2025 Cognitive function Voice/Name [facility] Work Phone: 04-13-2015 Because of a physica l, mental, or emotional condition, do you have serious difficulty concentrating, remembering, or making decisions No 04/13/2015 2:32 PM EDT Shayla Nguyen MA No [facility] Clinical Notes 04-19-2021 to 04-27-2025 Telephone Encounter - Faby Sears RN - 04/27/2025 9:26 AM EDTTelephone Encounter - Faby Sears RN - 04/27/2025 9:26 AM EDT Note Date & Type Note Facility 04-27-2025 Telephone encount er Note The patient has been identified by name and date of : Yes Caregiver verified no other encounters exist for this prescription request: Yes Caregiver confirmed with patient/requestor that no other refills are due, in the near future, with this provider at this time: Yes The last office visit in the department: 04/11/2025 Does the patient have a future office visit with this provider/department: Yes 10/12/2025 Requested Prescriptions Pending Prescriptions Disp Refills levothyroxine (SYNTHROID) 88 mcg tablet 66 tablet 1 Sig: Take 1 tablet by mouth five times a week. Mondays thru Fridays. None on Saturdays and Sundays. Faby Sears RN April 27, 2025 9:27 AM [facility] 04-27-2025 Miscellaneous Notes Formattin g of this note is different from the original. The patient has been identified by name and date of : Yes Caregiver verified no other encounters exist for this prescription request: Yes Caregiver confirmed with patient/requestor that no other refills are due, in the near future, with this provider at this time: Yes The last office visit in the department: 04/11/2025 Does the patient have a future office visit with this provider/department: Yes 10/12/2025 Requested Prescriptions Pending Prescriptions Disp Refills levothyroxine (SYNTHROID) 88 mcg tablet 66 tablet 1 Sig: Take 1 tablet by mouth five times a week. Mondays thru Fridays. None on Saturdays and Sundays. Faby Sears RN April 27, 2025 9:27 AM documented in this encounter [facility] 04-20-2025 Note [facility] 04-20-2025 Discharge summary [facility] 04-20-2025 Discharge summary Note Date/Time April 20, 2025 12:28pm [facility] Medical Records Department [address] [place] [address] Transfer to [facility] MR#: [id number] Acct: [id number] Name: GEOFFREY NASSAR Rep #:[id number] 2 : 1935 89 From: Sean Flaherty PCP: Dr. Ken Whelan MD Status:A DM IN Certification of patient admission REQUIRED AT TIME OF ADMISSION. I CERTIFY THAT POST-HOSPITAL ECF SERVICES ARE REQUIRED TO BE GIVEN ON AN IN-PATIENT BASIS BECAUSE OF THE ABOVE NAMED PATIENT'S NEED FOR SENIOR CARE CARE ON A CONTINUING BASIS FOR THE CONDITION(S) FOR WHICH HE/SHE WAS RECEIVING IN-PATIENT HOSPITAL SERVICES PRIOR TO HIS/HER TRANSFER TO THE F. 04/20/25 1228<Electronically signed by Sean Rizvi MD> Diet Diet Order/Speech Therapy: INPATIENT Hospital Diet / Speech Therapy Order(s) 04/17/25 01:56 Diet: Cardiac - Heart Healthy Food consistency:: Regular Liquid Consistency:: Regular/Thin Routine Orders/Code Status Suppository Type: Dulcolax 10mg Suppository Frequency: Daily PRN DC O2, CPAP, BIPAP needs Home O2 Discharge instructions: No Wound(s) Back Of Head: Wound Type: Laceration Therapies Extremity Affected:: Bilateral Lower Physical Therapy: Eval and Treat Occupational Therapy: Eval and Treat Speech Therapy: Eval and Treat Problem/Diagnosis (1) Frequent falls: Status: Acute Code(s): R29.6 - Repeated falls Plan The patient is an 89 y/o F admitted with unwitnessed mechanical fall on the day of ED presentation, fell forward with CT of the head with not recall of any event with some mild amnesia and loss of consciousness. Laceration at the back of the head generalized headache. Probably, she fell down after getting LOC. She denies any acute instability in lower extremity joints leading to fall. No chest pain pressure or tightness #1. Recurrent mechanical falls with adult failure to thrive with episode of head trauma with LOC with transient amnesia, currently resolved: Exact etiology of fall unclear but seems probably patient lost consciousness and then fell down. Denies acute instability in lower extremity joints. Unclear about the cause of LOC. Patient on baclofen 5 mg twice daily, lorazepam 2 mg nightly. This might be region of her LOC in the fall. She had 6 lázaro placed to the scalp and will need these removed in 1 week/7 days. 04/18: Patient had good sleep. She does not feel or look like confused. Not disoriented. Discussed with the neurologist. Wanted vitamin B12 folate B1. Agree with routine EEG. MRI brain shows no acute abnormalities. PT. Outpatient neurocognitive testing. Patient agreed for SNF. 04/19: B12 level came high 1790 therefore B12 supplement discontinued. Folic acid normal. Thiamine level pending. Routine EEG was normal in wakefulness. #2. Macrocytic anemia: Admission hemoglobin 10.5, MCV 99.4, baseline hemoglobinnoted to vacillate, more recently has been 11-12 however this was greater than 6months previous to current presentation, #3. Chronic Kidney Disease Stage III,: Admission BUN/Cr 35/1.40, GFR 36, baseline renal function more recently 1.3-1.4 with last noted 11/11/2024 creatinine 1.42, repeat BMP in AM. 04/18: Creatinine improved to 1.1, normal baseline. #4. Anxiety and depression: Will continue patient home paroxetine regimen. Patient is on a significant amount of lorazepam noted to be 2 mg nightly, given advanced age this may be significantly contributing to her fall risk. Given recent amnesic event will temporarily hold and may need to restart back at a lower dose and then wean off outpatient. #5. Hypertension: Continue home regimen including lisinopril, Lasix with hold parameters as needed although orthostatics are negative of note, PRN hydralazine. #6. Hyperlipidemia: Not on statin #7. OA, chronic pain: Patient is on significant mount as noted nightly Ativan specifically 2 mg in addition to being on baclofen 5 mg p.o. twice daily as a muscle relaxer and unfortunately these items are very sedated and likely contributing to her falls, will temporarily hold but may need to resume at a lower dose and weaned off outpatient. #8. Chronic asthma with allergic rhinitis: Continue ATC budesonide therapy, as needed albuterol, encourage head of bed and I-S, will continue patient home loratadine regimen. 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 #10. History SSS: Status post pacemaker placement, encourage continued follow-up and interrogation outpatient as previously arranged. #11. Former tobacco use: Encouraged continued tobacco cessation. #12. Hypothyroidism: continue patient on levothyroxine regimen. #13. GERD: New patient on PPI. #14. JADIEL: Patient does not use any PAP therapy, uses 2 L NC nightly. #15. DVT prophylaxis: Heparin. #16. CODE status: Patient HCPOA is her brother primary and secondary is her daughter and living will is currently in place. Discussed CODE status at length including difference between FULL code, DNR-CCA and DNR-CC status. Following discussions about the differences in these status, requested DNR CCA, clarified further with examples and patient determined with intubation. Allergies/Procedures Done in Hospital Allergies ciprofloxacin (From Cipro) Allergy (Verified 04/17/25 02:22) Itching diphenhydramine (From Benadryl) Allergy (Verified 04/17/25 02:22) Rash Penicillins Allergy (Verified 04/17/25 02:22) Hives shellfish derived Allergy (Verified 04/17/25 02:22) Anaphylaxis Sulfa (Sulfonamide Antibiotics) Allergy (Verified 04/17/25 02:22) Upset Stomach tiotropium (From Spiriva with HandiHaler) Allergy (Verified 04/17/25 02:22) Other ketamine Adverse Reaction (Verified 04/17/25 02:22) hallucinations Type of Care/Length of Stay Estimated LOS: Convalescent Care Less Than 30 days Type of Care Needed: Skilled Rehab Potential: Good Prognosis: Good Additional Orders/Day of Discharge Day of Discharge: 04/20/25 Dietary and Speech Recommendations Dietitian Recommendations/Changes: Will continue liberalized regular diet with consistency/texture as per [employer]. Will continue 120mL ensure plus HP 4 times per day w/ medpass. Monitor blood glucose level and restrict dietary carbohydrate as needed. Trend weights closely and adjust ONS as needed to optimize nutrition and preventenergy/pro depletion. Discharge Plan Admission Admit Date/Time: 04/17/25 12:01 Attending Provider: Sean Rizvi Primary Care Provider: Ken Whelan Consulting Providers: Idalia Marti; Campos Smith; Nelda Leon; Mariama Santos; Hansel Vidal; Scott Yung; Gilberto Rojas; ATILIO ROUSSEAU; Monse Pacheco; Yolande Li; Elvin Flower; Valery Hunt Discharge Orders/Prescriptions Prescriptions: New tizanidine 2 mg Tablet 2 mg PO Q8H PRN PRN (Reason: muscle spasm) Qty: 0 0RF trazodone 50 mg Tablet 50 mg PO QHS Qty: 0 0RF sennosides-docusate sodium [Stimulant Laxative Plus] 8.6-50 mg Tablet 2 tab PO BID PRN PRN (Reason: Constipation) Qty: 0 0RF thiamine HCl (vitamin B1) 100 mg Tablet 100 mg PO BREAKFAST Qty: 0 0RF lorazepam 0.5 mg Tablet 0.25 mg PO BID Qty: 0 0RF Rx Instructions: Taper 0.25 mg twice daily for 3 days and then 0.25 mg daily for 3 days and then stop Continued albuterol sulfate 2.5 mg /3 mL (0.083 %) solution for nebulization 2.5 mg INHALATION Q4H PRN (Reason: Sob &/Or Wheezing) Combigan 0.2-0.5 % drops 1 drp ophthalmic (eye) BID ketotifen fumarate 0.025 % (0.035 %) drops 1 drp ophthalmic (eye) BID Rx Instructions: administer at least 8 hours apart latanoprost 0.005 % drops, emulsion 1 drp ophthalmic (eye) QPM pantoprazole 20 mg tablet,delayed release (DR/EC) 40 mg PO DAILY loratadine [Claritin] 10 mg tablet 10 mg PO PRN Gemtesa 75 mg tablet 75 mg PO DAILY albuterol sulfate 90 mcg/actuation HFA aerosol inhaler 1 - 2 puff INHALATION Q4H PRN PRN (Reason: Shortness Of Breath) Qty: 18 6RF ascorbic acid (vitamin C) 250 mg tablet 250 mg PO BID Adult 50 Plus Probiotic 4 billion cell capsule 4,000 mmu cells PO DAILY Rx Instructions: administer with a meal lisinopril 20 mg tablet 20 mg PO DAILY Qty: 90 3RF multivitamin 1 EACH tablet 1 tab PO DAILY Patient Comments: supplement acetaminophen 325 MG tablet 650 mg PO QHS Patient Comments: pain paroxetine HCl 10 MG tablet 40 mg PO DAILY Patient Comments: anxiety/depression ergocalciferol (vitamin D2) 1,250 mcg (50,000 unit) capsule 50,000 unit PO QMONTH Patient Comments: Next dose Thursday levothyroxine 88 mcg tablet 88 mcg PO .COMPLEX Patient Comments: hypothyroidism Rx Instructions: 88 mcg PO MOTUWETHFR; polyethylene glycol 3350 17 GM packet 17 gm PO PRN aspirin 81 MG tablet 81 mg PO QHS lamotrigine 25 MG tablet extended release 24hr 25 mg PO DAILY furosemide 20 mg tablet 10 mg PO QAM nitrofurantoin monohyd/m-cryst [Macrobid] 100 mg capsule 100 mg PO BID 3 Days Qty: 6 0RF Rx Instructions: must administer with a meal/food fluticasone furoate-vilanterol [Breo Ellipta] 100-25 mcg/dose blister with device 1 inh inhalation DAILY Qty: 60 6RF estradiol 0.01 % (0.1 mg/gram) cream 1 g vaginal 3XW 90 Days Qty: 42.5 3RF Discontinued cyanocobalamin (vitamin B-12) 1,000 MCG tablet 1,000 mcg PO DAILY Patient Comments: supplement baclofen 10 MG tablet 5 mg PO BID Patient Comments: muscle spasms lorazepam 1 mg tablet 2 mg PO QHS Patient Comments: anxiety/sleep meloxicam 15 mg tablet 15 mg PO DAILY doxycycline hyclate 100 mg capsule 100 mg PO BID Referrals / Follow Up: Ken Whelan MD [Primary Care Provider] - Disposition Discharge Orders: Discharge Patient (Routine); Ordered 04/20/25 Ordered By: Dr. Sean Rizvi 04/20/25 1228 <Electronically signed by Sean Rizvi MD> Cosigner Signature (if applicable): CC: Yolande Li; Nelda Leon MD; Mariama Santos MD; Dr. Chapincito Rousseau MD;Dr. Campos Smith MD; Dr. Idalia Marti MD; Dr. Scott Yung MD; Dr. Ken Whelan MD; Gilberto Rojas MD; Hansel Vidal MD; Monse Pacheco DO; Elvin Flower MD; Valery Hunt DO ~ [facility] Work Phone: [phone] Discharge summary Author Sean Rizvi [facility] Note Date/Time April 20, 2025 4: 02pm [facility] Medical Records Department [address] [place] [address] Discharge Summary 04/20/25 1228 MR#: [id number] Acct: [id number] Name: GEOFFREY NASSAR Rep #:[id number] 2 : 1935 89 From: Sean Flaherty PCP: Dr. Ken Whelan MD Status:A DM IN Location: [facility] [id number] Providers Date of Admission: 04/17/25 Date of Discharge: 04/20/25 Primary Care Physician: Dr. Ken Whelan MD Consultations 04/17/25 09:39 neuro [Consult: Tele-Neurology] Routine Consulting Provider: [facility] Reason for Consult: Fall with LOC. first time LOC. LW in back of head EMERGENT Consult: No MD Notified: Yes Date Notified: 04/17/25 Time Notified: 12:08 Method of Notification: Answering Service Nursing Unit Staff Notify [facility] of Tele-Neurology Consult: Yes Reason For Visit: FALLS, ADULT FTT Diagnosis Discharge Diagnosis (1) Frequent falls: Status: Acute Code(s): R29.6 - Repeated falls Plan The patient is an 89 y/o F admitted with unwitnessed mechanical fall on the day of ED presentation, fell forward with CT of the head with not recall of any event with some mild amnesia and loss of consciousness. Laceration at the back of the head generalized headache. Probably, she fell down after getting LOC. She denies any acute instability in lower extremity joints leading to fall. No chest pain pressure or tightness #1. Recurrent mechanical falls with adult failure to thrive with episode of head trauma with LOC with transient amnesia, currently resolved: Exact etiology of fall unclear but seems probably patient lost consciousness and then fell down. Denies acute instability in lower extremity joints. Unclear about the cause of LOC. Patient on baclofen 5 mg twice daily, lorazepam 2 mg nightly. This might be region of her LOC in the fall. She had 6 lázaro placed to the scalp and will need these removed in 1 week/7 days. 04/18: Patient had good sleep. She does not feel or look like confused. Not disoriented. Discussed with the neurologist. Wanted vitamin B12 folate B1. Agree with routine EEG. MRI brain shows no acute abnormalities. PT. Outpatient neurocognitive testing. Patient agreed for SNF. 04/19: B12 level came high 1790 therefore B12 supplement discontinued. Folic acid normal. Thiamine level pending. Routine EEG was normal in wakefulness. Ativan taper ordered. Will need follow with psychiatrist 04/20: Patient already on B12 supplement at home therefore discontinued on on discharge. #2. Macrocytic anemia: Admission hemoglobin 10.5, MCV 99.4, baseline hemoglobinnoted to vacillate, more recently has been 11-12 however this was greater than 6months previous to current presentation, #3. Chronic Kidney Disease Stage III,: Admission BUN/Cr 35/1.40, GFR 36, baseline renal function more recently 1.3-1.4 with last noted 11/11/2024 creatinine 1.42, repeat BMP in AM. 04/18: Creatinine improved to 1.1, normal baseline. 04/20, patient was started on antibiotic as an outpatient with Dr. Hansen on 04/14. Currently she has 3 more days of left, nitrofurantoin 100 mg bid. #4. Anxiety and depression: continue patient home paroxetine regimen. Patient is on a significant amount of lorazepam noted to be 2 mg nightly, given advancedage this may be significantly contributing to her fall risk. Given recent amnesic event will temporarily hold and may need to restart back at a lower doseand then wean off outpatient. 04/20: On tapering dose of alprazolam and finally wean off #5. Hypertension: Continue home regimen including lisinopril, Lasix with hold parameters as needed although orthostatics are negative of note, PRN hydralazine. #6. Hyperlipidemia: Not on statin #7. OA, chronic pain: Patient is on significant mount as noted nightly Ativan specifically 2 mg in addition to being on baclofen 5 mg p.o. twice daily as a muscle relaxer and unfortunately these items are very sedated and likely contributing to her falls, will temporarily hold but may need to resume at a lower dose and weaned off outpatient. #8. Chronic asthma with allergic rhinitis: Continue ATC budesonide therapy, as needed albuterol, encourage head of bed and I-S, will continue patient home loratadine regimen. She completed 10 days course of doxycycline that was started as an outpatient. 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 #10. History SSS: Status post pacemaker placement, encourage continued follow-up and interrogation outpatient as previously arranged. #11. Former tobacco use: Encouraged continued tobacco cessation. #12. Hypothyroidism: continue patient on levothyroxine regimen. #13. GERD: New patient on PPI. #14. JADIEL: Patient does not use any PAP therapy, uses 2 L NC nightly. #15. DVT prophylaxis: Heparin. #16. CODE status: Patient HCPOA is her brother primary and secondary is her daughter and living will is currently in place. Discussed CODE status at length including difference between FULL code, DNR-CCA and DNR-CC status. Following discussions about the differences in these status, requested DNR CCA, clarified further with examples and patient determined with intubation. Discharge medication reconciliation done. Discharge follow-up instructions completed. Discharge process discussed with the patient and all questions wereanswered to patient's satisfaction. Follow with PCP in 1 to 2 weeks Total time spent, exact 35 minutes on discharge meds reconciliation, examination, coordination of care with nurses and ancillary staff, review of imaging and blood test and discussion with the patient on follow-up instructions. Medications at Discharge Home Medications acetaminophen 325 mg tablet 650 mg PO QHS pain 11/17/16 multivitamin 1 tab PO DAILY vitamin 11/17/16 paroxetine HCl 10 mg tablet 40 mg PO DAILY mental health 11/17/16 polyethylene glycol 3350 17 gram oral powder packet 17 gm PO PRN constipation 05/27/17 aspirin 81 mg tablet,delayed release 81 mg PO QHS heart health 11/27/17 lamotrigine 25 mg tablet,extended release 24 hr 25 mg PO DAILY 11/27/17 loratadine 10 mg tablet (Claritin) 10 mg PO PRN allergies 12/27/20 albuterol sulfate 2.5 mg/3 mL (0.083 %) solution for nebulization 2.5 mg inhalation Q4H PRN Sob &/Or Wheezing 01/10/21 brimonidine 0.2 %-timolol 0.5 % eye drops (Combigan) 1 drp ophthalmic (eye) BID eye health 01/10/21 ketotifen fumarate 0.025 % (0.035 %) eye drops 1 drp ophthalmic (eye) BID eye health 01/10/21 latanoprost 0.005 % eye drops, emulsion 1 drp ophthalmic (eye) QPM eye health 01/10/21 pantoprazole 20 mg tablet,delayed release 40 mg PO DAILY reflux 01/10/21 vibegron 75 mg tablet (Gemtesa) 75 mg PO DAILY 08/07/21 albuterol sulfate 90 mcg/actuation aerosol inhaler 1 - 2 puff inhalation Q4H PRNPRN Shortness Of Breath #18 grams 02/11/22 ascorbic acid (vitamin C) 250 mg tablet 250 mg PO BID 08/19/22 lactobacillus combination no.9 4 billion cell capsule (Adult 50 Plus Probiotic) 4,000 mmu cells PO DAILY 08/19/22 ergocalciferol (vitamin D2) 1,250 mcg (50,000 unit) capsule 50,000 unit PO QMONTH vitamin 09/10/22 levothyroxine 88 mcg tablet 88 mcg PO .COMPLEX thyroid 07/01/24 fluticasone furoate 100 mcg-vilanterol 25 mcg/dose inhalation powder (Breo Ellipta) 1 inh inhalation DAILY #60 ea 08/22/24 lisinopril 20 mg tablet 20 mg PO DAILY blood pressure #90 tabs 03/31/25 estradiol 0.01% (0.1 mg/gram) vaginal cream 1 g vaginal 3XW 3 months #42.5 grams04/14/25 furosemide 20 mg tablet 10 mg PO QAM Diuretic 04/17/25 lorazepam 0.5 mg tablet 0.25 mg (1/2 x 0.5 mg) PO BID #0 tabs 04/20/25 nitrofurantoin monohydrate/macrocrystals 100 mg capsule (Macrobid) 100 mg PO BID3 days #6 caps 04/20/25 sennosides 8.6 mg-docusate sodium 50 mg tablet (Stimulant Laxative Plus) 2 tab PO BID PRN PRN Constipation #0 tabs 04/20/25 thiamine HCl (vitamin B1) 100 mg tablet 100 mg PO BREAKFAST #0 tabs 04/20/25 tizanidine 2 mg tablet 2 mg PO Q8H PRN PRN muscle spasm #0 tabs 04/20/25 trazodone 50 mg tablet 50 mg PO QHS #0 tabs 04/20/25 Physical Exam Narrative Seen and examined No acute issues. Pre-CERT received for TCU. Going to be transferred there. Patient was admitted with loss of consciousness with fall. Problem in walking/weakness/imbalance. She had multiple times fall in the past but denies any LOC in the past. Physical exam General: Alert, Oriented x3, Cooperative HEENT: Atraumatic, PERRLA, EOMI, Normocephalic. Oral: No Gingival or Mucosal Lesions/ Ulcerations Neck: Supple, No JVD, Negative Carotid Bruits Chest wall/Lungs: Air entry diminished in bilateral lung bases. No crepitation/rhonchi Cardiovascular: Regular rate and rhythm, Normal S1,S2, No M/G/R Abdomen: Bowel Sounds Present, Soft, Non Tender, Non-Distended : No dysuria. No renal angle tenderness. No suprapubic tenderness. Extremities: No edema, Capillary Refill Less than 3 Seconds Skin: Staple on the back of the head. Musculoskeletal: No Tenderness to Palpation of Joints or Extremities Neurological: Cranial nerves II-XII grossly intact, DTR 2+/4. No acute focal neurological deficit. Psych/Mental Status: Normal Affect, Appropriate. Weight / BMI Weight Weight: 149 lb 4.047 oz Body Mass Index (BMI) 27.3 ABG / Lab / Microbiology Data 04/20/25 06:38 04/20/25 06:38 Laboratory: Laboratory Results - last 24 hr 04/20/25 06:38: WBC 8.9, RBC 3.28 L, Hgb 10.2 L, Hct 33.1 L, MCV 100.9 H, MCH 31.1, MCHC 30.8 L, RDW Std Deviation 54.4 H, RDW Coeff of Dave 14.6, Plt Count 221, MPV 10.8, Immature Gran % (Auto) 0.800, Neut % (Auto) 56.1, Lymph % (Auto) 24.7, Gulf % (Auto) 11.7 H, Eos % (Auto) 6.0 H, Baso % (Auto) 0.7, Absolute Neuts (auto) 5.0, Absolute Lymphs (auto) 2.19, Nucleated RBC % 0, Sodium 139, Potassium 4.7, Chloride 106, Carbon Dioxide 24.8, Anion Gap 8, BUN 33 H, Creatinine 1.10, Estim Creat Clear Calc 31.89 L, Est GFR (MDRD) Non-Af 48 L, BUN/Creatinine Ratio 30.1 H, Glucose 99, Calcium 9.2 D/C Instructions DC O2, CPAP, BIPAP Needs Home O2 Discharge instructions: No Meaningful Use Info Meaningful Use Meaningful Use Diagnoses (Choose all that apply): None applicable Discharge Plan Admission Admit Date/Time: 04/17/25 12:01 Primary Reason for Your Visit: Multiple fall Attending Provider: Sean Rizvi Primary Care Provider: Ken Whelan Consulting Providers: Idalia Marti; Campos Smith; Nelda Leon; Mariama Santos; Hansel Vidal; Scott Yung; Gilberto Rojas; ATILIO ROUSSEAU; Monse Pacheco; Yolande Li; Elvin Flower; Valery Hunt Instructions Additional Instructions / Restrictions: She follows outside bingo caller Dr. Ortega. Advised to follow-up within a month. Need to lázaro out after 6 days of ED on 04/17 Discharge Orders/Prescriptions Prescriptions: New tizanidine 2 mg Tablet 2 mg PO Q8H PRN PRN (Reason: muscle spasm) Qty: 0 0RF trazodone 50 mg Tablet 50 mg PO QHS Qty: 0 0RF sennosides-docusate sodium [Stimulant Laxative Plus] 8.6-50 mg Tablet 2 tab PO BID PRN PRN (Reason: Constipation) Qty: 0 0RF thiamine HCl (vitamin B1) 100 mg Tablet 100 mg PO BREAKFAST Qty: 0 0RF lorazepam 0.5 mg Tablet 0.25 mg PO BID Qty: 0 0RF Rx Instructions: Taper 0.25 mg twice daily for 3 days and then 0.25 mg daily for 3 days and then stop Continued albuterol sulfate 2.5 mg /3 mL (0.083 %) solution for nebulization 2.5 mg INHALATION Q4H PRN (Reason: Sob &/Or Wheezing) Combigan 0.2-0.5 % drops 1 drp ophthalmic (eye) BID ketotifen fumarate 0.025 % (0.035 %) drops 1 drp ophthalmic (eye) BID Rx Instructions: administer at least 8 hours apart latanoprost 0.005 % drops, emulsion 1 drp ophthalmic (eye) QPM pantoprazole 20 mg tablet,delayed release (DR/EC) 40 mg PO DAILY loratadine [Claritin] 10 mg tablet 10 mg PO PRN Gemtesa 75 mg tablet 75 mg PO DAILY albuterol sulfate 90 mcg/actuation HFA aerosol inhaler 1 - 2 puff INHALATION Q4H PRN PRN (Reason: Shortness Of Breath) Qty: 18 6RF ascorbic acid (vitamin C) 250 mg tablet 250 mg PO BID Adult 50 Plus Probiotic 4 billion cell capsule 4,000 mmu cells PO DAILY Rx Instructions: administer with a meal lisinopril 20 mg tablet 20 mg PO DAILY Qty: 90 3RF multivitamin 1 EACH tablet 1 tab PO DAILY Patient Comments: supplement acetaminophen 325 MG tablet 650 mg PO QHS Patient Comments: pain paroxetine HCl 10 MG tablet 40 mg PO DAILY Patient Comments: anxiety/depression ergocalciferol (vitamin D2) 1,250 mcg (50,000 unit) capsule 50,000 unit PO QMONTH Patient Comments: Next dose Thursday levothyroxine 88 mcg tablet 88 mcg PO .COMPLEX Patient Comments: hypothyroidism Rx Instructions: 88 mcg PO MOTUWETHFR; polyethylene glycol 3350 17 GM packet 17 gm PO PRN aspirin 81 MG tablet 81 mg PO QHS lamotrigine 25 MG tablet extended release 24hr 25 mg PO DAILY furosemide 20 mg tablet 10 mg PO QAM nitrofurantoin monohyd/m-cryst [Macrobid] 100 mg capsule 100 mg PO BID 3 Days Qty: 6 0RF Rx Instructions: must administer with a meal/food fluticasone furoate-vilanterol [Breo Ellipta] 100-25 mcg/dose blister with device 1 inh inhalation DAILY Qty: 60 6RF estradiol 0.01 % (0.1 mg/gram) cream 1 g vaginal 3XW 90 Days Qty: 42.5 3RF Discontinued cyanocobalamin (vitamin B-12) 1,000 MCG tablet 1,000 mcg PO DAILY Patient Comments: supplement baclofen 10 MG tablet 5 mg PO BID Patient Comments: muscle spasms lorazepam 1 mg tablet 2 mg PO QHS Patient Comments: anxiety/sleep meloxicam 15 mg tablet 15 mg PO DAILY doxycycline hyclate 100 mg capsule 100 mg PO BID Referrals / Follow Up: Ken Whelan MD [Primary Care Provider] - Christi Hansen MD [Med Staff - Active Staff] - Within 1 Month Mikel Elena DO [Med Staff - Web Marketing Assistant] - Within 1 Month Disposition Disposition (needs filled in before D/C Order can be placed): Assisted Facility Charges/Coding Visit Charges Inpatient E&M: 33457 Disch Hosp >30min 04/20/25 1602 <Electronically signed by Sean Rizvi MD> Cosigner Signature (if applicable): CC: Dr. Sean Rizvi MD; Dr. Ken Whelan MD~ Signed [facility] Work Phone: [phone] Discharge summary [facility] Medical Records Department [address] [place] [address] Transfer to [facility] MR#: [id number] Acct: [id number] Name: GEOFFREY NASSAR Rep #:[id number] 2 : 1935 89 From: Sean Flaherty PCP: Dr. Ken Whelan MD Status:A DM IN Certification of patient admission REQUIRED AT TIME OF ADMISSION. I CERTIFY THAT POST-HOSPITAL F SERVICES ARE REQUIRED TO BE GIVEN ON AN IN-PATIENT BASIS BECAUSE OF THE ABOVE NAMED PATIENT'S NEED FOR SENIOR CARE CARE ON A CONTINUING BASIS FOR THE CONDITION(S) FOR WHICH HE/SHE WAS RECEIVING IN-PATIENT HOSPITAL SERVICES PRIOR TO HIS/HER TRANSFER TO THE [facility]. 04/20/25 1228 Diet Diet Order/Speech Therapy: INPATIENT Hospital Diet / Speech Therapy Order(s) 04/17/25 01:56 Diet: Cardiac - Heart Healthy Food consistency:: Regular Liquid Consistency:: Regular/Thin Routine Orders/Code Status Suppository Type: Dulcolax 10mg Suppository Frequency: Daily PRN DC O2, CPAP, BIPAP needs Home O2 Discharge instructions: No Wound(s) Back Of Head: Wound Type: Laceration Therapies Extremity Affected:: Bilateral Lower Physical Therapy: Eval and Treat Occupational Therapy: Eval and Treat Speech Therapy: Eval and Treat Problem/Diagnosis (1) Frequent falls: Status: Acute Code(s): R29.6 - Repeated falls Plan The patient is an 89 y/o F admitted with unwitnessed mechanical fall on the day of ED presentation,fell forward with CT of the head with not recall of any event with some mild amnesia and loss of consciousness. Laceration at the back of the head generalized headache. Probably, she fell down after getting LOC. She denies any acute instability in lower extremity joints leading to fall. No chest pain pressure or tightness #1. Recurrent mechanical falls with adult failure to thrive with episode of head trauma with LOC with transient amnesia, currently resolved: Exact etiology of fall unclear but seems probably patient lost consciousness and then fell down. Denies acute instability in lower extremity joints. Unclear about the cause of LOC. Patient on baclofen 5 mg twice daily, lorazepam 2 mg nightly. This might be region of her LOC in the fall. She had 6 lázaro placed to the scalp and will need these removed in 1 week/7 days. 04/18: Patient had good sleep. She does not feel or look like confused. Not disoriented. Discussed with the neurologist. Wanted vitamin B12 folate B1. Agree with routine EEG. MRI brain shows no acute abnormalities. PT. Outpatient neurocognitive testing. Patient agreed for SNF. 04/19: B12 level came high 1790 therefore B12 supplement discontinued. Folic acid normal. Thiamine level pending. Routine EEG was normal in wakefulness. #2. Macrocytic anemia: Admission hemoglobin 10.5, MCV 99.4, baseline hemoglobinnoted to vacillate, more recently has been -12 however this was greater than 6months previous to current presentation, #3. Chronic Kidney Disease Stage III,: Admission BUN/Cr 35/1.40, GFR 36, baseline renal function more recently 1.3-1.4 with last noted 11/11/2024 creatinine 1.42, repeat BMP in AM. 04/18: Creatinine improved to 1.1, normal baseline. #4. Anxiety and depression: Will continue patient home paroxetine regimen. Patient is on a significant amount of lorazepam noted to be 2 mg nightly, given advanced age this may be significantly contributing to her fall risk. Given recent amnesic event will temporarily hold and may need to restart back at a lower dose and then wean off outpatient. #5. Hypertension: Continue home regimen including lisinopril, Lasix with hold parameters as needed although orthostatics are negative of note, PRN hydralazine. #6. Hyperlipidemia: Not on statin #7. OA, chronic pain: Patient is on significant mount as noted nightly Ativan specifically 2 mg in addition to being on baclofen 5 mg p.o. twice daily as a muscle relaxer and unfortunately these items are very sedated and likely contributing to her falls, will temporarily hold but may need to resume at a lower dose and weaned off outpatient. #8. Chronic asthma with allergic rhinitis: Continue ATC budesonide therapy, as needed albuterol, encourage head of bed and I-S, will continue patient home loratadine regimen. 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 #10. History SSS: Status post pacemaker placement, encourage continued follow-up and interrogation outpatient as previously arranged. #11. Former tobacco use: Encouraged continued tobacco cessation. #12. Hypothyroidism: continue patient on levothyroxine regimen. #13. GERD: New patient on PPI. #14. JADIEL: Patient does not use any PAP therapy, uses 2 L NC nightly. #15. DVT prophylaxis: Heparin. #16. CODE status: Patient HCPOA is her brother primary and secondary is her daughter and living will is currently in place. Discussed CODE status at length including difference between FULL code, DNR-CCA and DNR-CC status. Following discussions about the differences in these status, requested DNR CCA, clarified further with examples and patient determined with intubation. Allergies/Procedures Done in Hospital Allergies ciprofloxacin (From Cipro) Allergy (Verified 04/17/25 02:22) Itching diphenhydramine (From Benadryl) Allergy (Verified 04/17/25 02:22) Rash Penicillins Allergy (Verified 04/17/25 02:22) Hives shellfish derived Allergy (Verified 04/17/25 02:22) Anaphylaxis Sulfa (Sulfonamide Antibiotics) Allergy (Verified 04/17/25 02:22) Upset Stomach tiotropium (From Spiriva with HandiHaler) Allergy (Verified 04/17/25 02:22) Other ketamine Adverse Reaction (Verified 04/17/25 02:22) hallucinations Type of Care/Length of Stay Estimated LOS: Convalescent Care Less Than 30 days Type of Care Needed: Skilled Rehab Potential: Good Prognosis: Good Additional Orders/Day of Discharge Day of Discharge: 04/20/25 Dietary and Speech Recommendations Dietitian Recommendations/Changes: Will continue liberalized regular diet with consistency/texture as per [employer]. Will continue 120mL ensure plus HP 4 times per day w/ medpass. Monitor blood glucose level and restrict dietary carbohydrate as needed. Trend weights closely and adjust ONS as needed to optimize nutrition and preventenergy/pro depletion. Discharge Plan Admission Admit Date/Time: 04/17/25 12:01 Attending Provider: Sean Rizvi Primary Care Provider: Ken Whelan Consulting Providers: Idalia Marti; Campos Smith; Nelda Leon; Mariama Santos; Hansel Vidal; Scott Yung; Gilberto Rojas; ATILIO ROUSSEAU; Monse Pacheco; Yolande Li; Elvin Flower; Valery Hunt Discharge Orders/Prescriptions Prescriptions: New tizanidine 2 mg Tablet 2 mg PO Q8H PRN PRN (Reason: muscle spasm) Qty: 0 0RF trazodone 50 mg Tablet 50 mg PO QHS Qty: 0 0RF sennosides-docusate sodium [Stimulant Laxative Plus] 8.6-50 mg Tablet 2 tab PO BID PRN PRN (Reason: Constipation) Qty: 0 0RF thiamine HCl (vitamin B1) 100 mg Tablet 100 mg PO BREAKFAST Qty: 0 0RF lorazepam 0.5 mg Tablet 0.25 mg PO BID Qty: 0 0RF Rx Instructions: Taper 0.25 mg twice daily for 3 days and then 0.25 mg daily for 3 days and then stop Continued albuterol sulfate 2.5 mg /3 mL (0.083 %) solution for nebulization 2.5 mg INHALATION Q4H PRN (Reason: Sob &/Or Wheezing) Combigan 0.2-0.5 % drops 1 drp ophthalmic (eye) BID ketotifen fumarate 0.025 % (0.035 %) drops 1 drp ophthalmic (eye) BID Rx Instructions: administer at least 8 hours apart latanoprost 0.005 % drops, emulsion 1 drp ophthalmic (eye) QPM pantoprazole 20 mg tablet,delayed release (DR/EC) 40 mg PO DAILY loratadine [Claritin] 10 mg tablet 10 mg PO PRN Gemtesa 75 mg tablet 75 mg PO DAILY albuterol sulfate 90 mcg/actuation HFA aerosol inhaler 1 - 2 puff INHALATION Q4H PRN PRN (Reason: Shortness Of Breath) Qty: 18 6RF ascorbic acid (vitamin C) 250 mg tablet 250 mg PO BID Adult 50 Plus Probiotic 4 billion cell capsule 4,000 mmu cells PO DAILY Rx Instructions: administer with a meal lisinopril 20 mg tablet 20 mg PO DAILY Qty: 90 3RF multivitamin 1 EACH tablet 1 tab PO DAILY Patient Comments: supplement acetaminophen 325 MG tablet 650 mg PO QHS Patient Comments: pain paroxetine HCl 10 MG tablet 40 mg PO DAILY Patient Comments: anxiety/depression ergocalciferol (vitamin D2) 1,250 mcg (50,000 unit) capsule 50,000 unit PO QMONTH Patient Comments: Next dose Thursday levothyroxine 88 mcg tablet 88 mcg PO .COMPLEX Patient Comments: hypothyroidism Rx Instructions: 88 mcg PO MOTUWETHFR; polyethylene glycol 3350 17 GM packet 17 gm PO PRN aspirin 81 MG tablet 81 mg PO QHS lamotrigine 25 MG tablet extended release 24hr 25 mg PO DAILY furosemide 20 mg tablet 10 mg PO QAM nitrofurantoin monohyd/m-cryst [Macrobid] 100 mg capsule 100 mg PO BID 3 Days Qty: 6 0RF Rx Instructions: must administer with a meal/food fluticasone furoate-vilanterol [Breo Ellipta] 100-25 mcg/dose blister with device 1 inh inhalation DAILY Qty: 60 6RF estradiol 0.01 % (0.1 mg/gram) cream 1 g vaginal 3XW 90 Days Qty: 42.5 3RF Discontinued cyanocobalamin (vitamin B-12) 1,000 MCG tablet 1,000 mcg PO DAILY Patient Comments: supplement baclofen 10 MG tablet 5 mg PO BID Patient Comments: muscle spasms lorazepam 1 mg tablet 2 mg PO QHS Patient Comments: anxiety/sleep meloxicam 15 mg tablet 15 mg PO DAILY doxycycline hyclate 100 mg capsule 100 mg PO BID Referrals / Follow Up: Ken Whelan MD [Primary Care Provider] - Disposition Discharge Orders: Discharge Patient (Routine); Ordered 04/20/25 Ordered By: Dr. Sean Rizvi 04/20/25 1228 Cosigner Signature (if applicable): CC: Yolande Li; Nelda Leon MD; Mariama Santos MD; Dr. Chapincito Rousseau MD;Dr. Campos Smith MD; Dr. Idalia Marti MD; Dr. Scott Yung MD; Dr. Ken Whelan MD; Gilberto Rojas MD; Hansel Vidal MD; Monse Pacheco DO; Elvin Flower MD; Valery Hunt DO ~ [facility]08-14-2025 [facility]08-13-2025 Progress note Author Sean Rizvi [facility] Note Date/Time April 19, 2025 3: [address] [place] [address] System Medical Records Department [address] [place] [address] Progress Note - Hospitalist 04/19/25 1530 MR#: [id number] Acct: [id number] Name: GEOFFREY NASSAR Rep #:[id number] : 1935 89 From: Sean Flaherty PCP: Dr. Ken Whelan MD Status:A DM IN Location: [place] [address] Reason for Visit Chief Complaint: Fall, hit head, LOC. Objective Data Objective Data Vital Signs: Vital Signs Temp Pulse Resp BP Pulse Ox O2 Del Method O2 Flow Rate 98.1 F 63 18 133/64 H 100 Nasal Cannula 2 04/19/25 08:22 04/19/25 08:22 04/19/25 08:22 04/19/25 08:22 04/19/25 08:25 04/19/25 08:25 04/19/25 08:25 Oxygen Flow Rate (L/min) 2 Oxygen Delivery Method Nasal Cannula Weight: 145 lb 8 oz Body Mass Index (BMI) 26.6 Intake & Output: Intake and Output for Last 24 Hours 04/17/25 04/18/25 04/19/25 23:59 23:59 23:59 Intake Total 1740 / 1740 740 / 740 480 / 480 Output Total 1700 / 1700 420 / 420 700 / 700 Balance 40 / 40 320 / 320 -220 / -220 Lab / Micro Data 04/19/25 05:48 04/19/25 05:48 Labs: Laboratory Results - last 24 hr 04/18/25 16:09: Vitamin B12 1790 H, Serum Folate 16.10 04/19/25 05:48: WBC 8.0, RBC 3.33 L, Hgb 10.4 L, Hct 33.2 L, MCV 99.7 H, MCH 31.2, MCHC 31.3 L, RDW Std Deviation 54.4 H, RDW Coeff of Dave 14.7 H, Plt Count 206, MPV 10.3, Immature Gran % (Auto) 0.400, Neut % (Auto) 52.5, Lymph % (Auto) 28.1, Gulf % (Auto) 10.7 H, Eos % (Auto) 7.5 H, Baso % (Auto) 0.8, Absolute Neuts (auto) 4.2, Absolute Lymphs (auto) 2.24, Nucleated RBC % 0, Sodium 140, Potassium 4.5, Chloride 108, Carbon Dioxide 25.3, Anion Gap 7, BUN 35 H, Creatinine 1.18, Estim Creat Clear Calc 29.37 L, Est GFR (MDRD) Non-Af 44 L, BUN/Creatinine Ratio 30.0 H, Glucose 93, Calcium 9.0 Physical Exam Narrative Seen and examined No acute issues. Headache has resolved. Pending pre-CERT. Admitted with loss of consciousness with fall She had multiple times fall in the past but denies any LOC in the past. Physical exam General: Alert, Oriented x3, Cooperative HEENT: Atraumatic, PERRLA, EOMI, Normocephalic. Oral: No Gingival or Mucosal Lesions/ Ulcerations Neck: Supple, No JVD, Negative Carotid Bruits Chest wall/Lungs: Air entry diminished in bilateral lung bases. No crepitation/rhonchi Cardiovascular: Regular rate and rhythm, Normal S1,S2, No M/G/R Abdomen: Bowel Sounds Present, Soft, Non Tender, Non-Distended : No dysuria. No renal angle tenderness. No suprapubic tenderness. Extremities: No edema, Capillary Refill Less than 3 Seconds Skin: Staple on the back of the head. Musculoskeletal: No Tenderness to Palpation of Joints or Extremities Neurological: Cranial nerves II-XII grossly intact, DTR 2+/4. No acute focal neurological deficit. Psych/Mental Status: Normal Affect, Appropriate. Assessment & Plan Assessment/Plan (1) Frequent falls: PLAN: Plan The patient is an 89 y/o F admitted with unwitnessed mechanical fall on the day of ED presentation, fell forward with CT of the head with not recall of any event with some mild amnesia and loss of consciousness. Laceration at the back of the head generalized headache. Probably, she fell down after getting LOC. She denies any acute instability in lower extremity joints leading to fall. No chest pain pressure or tightness #1. Recurrent mechanical falls with adult failure to thrive with episode of head trauma with LOC with transient amnesia, currently resolved: Exact etiology of fall unclear but seems probably patient lost consciousness and then fell down. Denies acute instability in lower extremity joints. Unclear about the cause of LOC. Patient on baclofen 5 mg twice daily, lorazepam 2 mg nightly. This might be region of her LOC in the fall. She had 6 lázaro placed to the scalp and will need these removed in 1 week/7 days. 04/18: Patient had good sleep. She does not feel or look like confused. Not disoriented. Discussed with the neurologist. Wanted vitamin B12 folate B1. Agree with routine EEG. MRI brain shows no acute abnormalities. PT. Outpatient neurocognitive testing. Patient agreed for SNF. 04/19: B12 level came high 1790 therefore B12 supplement discontinued. Folic acid normal. Thiamine level pending. Routine EEG was normal in wakefulness. #2. Macrocytic anemia: Admission hemoglobin 10.5, MCV 99.4, baseline hemoglobinnoted to vacillate, more recently has been - however this was greater than 6months previous to current presentation, #3. Chronic Kidney Disease Stage III,: Admission BUN/Cr 35/1.40, GFR 36, baseline renal function more recently 1.3-1.4 with last noted 11/11/2024 creatinine 1.42, repeat BMP in AM. 04/18: Creatinine improved to 1.1, normal baseline. #4. Anxiety and depression: Will continue patient home paroxetine regimen. Patient is on a significant amount of lorazepam noted to be 2 mg nightly, given advanced age this may be significantly contributing to her fall risk. Given recent amnesic event will temporarily hold and may need to restart back at a lower dose and then wean off outpatient. #5. Hypertension: Continue home regimen including lisinopril, Lasix with hold parameters as needed although orthostatics are negative of note, PRN hydralazine. #6. Hyperlipidemia: Not on statin #7. OA, chronic pain: Patient is on significant mount as noted nightly Ativan specifically 2 mg in addition to being on baclofen 5 mg p.o. twice daily as a muscle relaxer and unfortunately these items are very sedated and likely contributing to her falls, will temporarily hold but may need to resume at a lower dose and weaned off outpatient. #8. Chronic asthma with allergic rhinitis: Continue ATC budesonide therapy, as needed albuterol, encourage head of bed and I-S, will continue patient home loratadine regimen. 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 #10. History SSS: Status post pacemaker placement, encourage continued follow-up and interrogation outpatient as previously arranged. #11. Former tobacco use: Encouraged continued tobacco cessation. #12. Hypothyroidism: continue patient on levothyroxine regimen. #13. GERD: New patient on PPI. #14. JADIEL: Patient does not use any PAP therapy, uses 2 L NC nightly. #15. DVT prophylaxis: Heparin. #16. CODE status: Patient HCPOA is her brother primary and secondary is her daughter and living will is currently in place. Discussed CODE status at length including difference between FULL code, DNR-CCA and DNR-CC status. Following discussions about the differences in these status, requested DNR CCA, clarified further with examples and patient determined with intubation. Charges/Coding Visit Charges Inpatient E&M: 45479 Subs Hosp L2 04/19/25 7474 <Electronically signed by Sean Rizvi MD> Cosigner Signature (if applicable): CC: ~ Signed [facility] Work Phone: [phone] 811-727308-13-2025 Progress note [facility] System Medical Records Department [address] [place] [address] Progress Note - Hospitalist 04/19/25 1530 MR#: [id number] Acct: [id number] Name: GEOFFREY NASSAR Rep #:[id number] : 1935 89 From: Sean Flaherty PCP: Dr. Ken Whelan MD Status:A DM IN Location: [place] [address] Reason for Visit Chief Complaint: Fall, hit head, LOC. Objective Data Objective Data Vital Signs: Vital Signs Temp Pulse Resp BP Pulse Ox O2 Del Method O2 Flow Rate 98.1 F 63 18 133/64 H 100 Nasal Cannula 2 04/19/25 08:22 04/19/25 08:22 04/19/25 08:22 04/19/25 08:22 04/19/25 08:25 04/19/25 08:25 04/19/25 08:25 Oxygen Flow Rate (L/min) 2 Oxygen Delivery Method Nasal Cannula Weight: 145 lb 8 oz Body Mass Index (BMI) 26.6 Intake & Output: Intake and Output for Last 24 Hours 04/17/25 04/18/25 04/19/25 23:59 23:59 23:59 Intake Total 1740 / 1740 740 / 740 480 / 480 Output Total 1700 / 1700 420 / 420 700 / 700 Balance 40 / 40 320 / 320 -220 / -220 Lab / Micro Data 04/19/25 05:48 04/19/25 05:48 Labs: Laboratory Results - last 24 hr 04/18/25 16:09: Vitamin B12 1790 H, Serum Folate 16.10 04/19/25 05:48: WBC 8.0, RBC 3.33 L, Hgb 10.4 L, Hct 33.2 L, MCV 99.7 H, MCH 31.2, MCHC 31.3 L, RDWStd Deviation 54.4 H, RDW Coeff of Dave 14.7 H, Plt Count 206, MPV 10.3, Immature Gran % (Auto) 0.400, Neut % (Auto) 52.5, Lymph % (Auto) 28.1, Gulf % (Auto) 10.7 H, Eos % (Auto) 7.5 H, Baso % (Auto) 0.8, Absolute Neuts (auto) 4.2, Absolute Lymphs (auto) 2.24, Nucleated RBC % 0, Sodium 140, Potassium 4.5, Chloride 108, Carbon Dioxide 25.3, Anion Gap 7, BUN 35 H, Creatinine 1.18, Estim Creat Clear Calc 29.37 L, Est GFR (MDRD) Non-Af 44 L, BUN/Creatinine Ratio 30.0 H, Glucose 93, Calcium 9.0 Physical Exam Narrative Seen and examined No acute issues. Headache has resolved. Pending pre-CERT. Admitted with loss of consciousness with fall She had multiple times fall in the past but denies any LOC in the past. Physical exam General: Alert, Oriented x3, Cooperative HEENT: Atraumatic, PERRLA, EOMI, Normocephalic. Oral: No Gingival or Mucosal Lesions/ Ulcerations Neck: Supple, No JVD, Negative Carotid Bruits Chest wall/Lungs: Air entry diminished in bilateral lung bases. No crepitation/rhonchi Cardiovascular: Regular rate and rhythm, Normal S1,S2, No M/G/R Abdomen: Bowel Sounds Present, Soft, Non Tender, Non-Distended : No dysuria. No renal angle tenderness. No suprapubic tenderness. Extremities: No edema, Capillary Refill Less than 3 Seconds Skin: Staple on the back of the head. Musculoskeletal: No Tenderness to Palpation of Joints or Extremities Neurological: Cranial nerves II-XII grossly intact, DTR 2+/4. No acute focal neurological deficit. Psych/Mental Status: Normal Affect, Appropriate. Assessment & Plan Assessment/Plan (1) Frequent falls: PLAN: Plan The patient is an 89 y/o F admitted with unwitnessed mechanical fall on the day of ED presentation,fell forward with CT of the head with not recall of any event with some mild amnesia and loss of consciousness. Laceration at the back of the head generalized headache. Probably, she fell down after getting LOC. She denies any acute instability in lower extremity joints leading to fall. No chest pain pressure or tightness #1. Recurrent mechanical falls with adult failure to thrive with episode of head trauma with LOC with transient amnesia, currently resolved: Exact etiology of fall unclear but seems probably patient lost consciousness and then fell down. Denies acute instability in lower extremity joints. Unclear about the cause of LOC. Patient on baclofen 5 mg twice daily, lorazepam 2 mg nightly. This might be region of her LOC in the fall. She had 6 lázaro placed to the scalp and will need these removed in 1 week/7 days. 04/18: Patient had good sleep. She does not feel or look like confused. Not disoriented. Discussed with the neurologist. Wanted vitamin B12 folate B1. Agree with routine EEG. MRI brain shows no acute abnormalities. PT. Outpatient neurocognitive testing. Patient agreed for SNF. 04/19: B12 level came high 1790 therefore B12 supplement discontinued. Folic acid normal. Thiamine level pending. Routine EEG was normal in wakefulness. #2. Macrocytic anemia: Admission hemoglobin 10.5, MCV 99.4, baseline hemoglobinnoted to vacillate, more recently has been - however this was greater than 6months previous to current presentation, #3. Chronic Kidney Disease Stage III,: Admission BUN/Cr 35/1.40, GFR 36, baseline renal function more recently 1.3-1.4 with last noted 11/11/2024 creatinine 1.42, repeat BMP in AM. 04/18: Creatinine improved to 1.1, normal baseline. #4. Anxiety and depression: Will continue patient home paroxetine regimen. Patient is on a significant amount of lorazepam noted to be 2 mg nightly, given advanced age this may be significantly contributing to her fall risk. Given recent amnesic event will temporarily hold and may need to restart back at a lower dose and then wean off outpatient. #5. Hypertension: Continue home regimen including lisinopril, Lasix with hold parameters as needed although orthostatics are negative of note, PRN hydralazine. #6. Hyperlipidemia: Not on statin #7. OA, chronic pain: Patient is on significant mount as noted nightly Ativan specifically 2 mg in addition to being on baclofen 5 mg p.o. twice daily as a muscle relaxer and unfortunately these items are very sedated and likely contributing to her falls, will temporarily hold but may need to resume at a lower dose and weaned off outpatient. #8. Chronic asthma with allergic rhinitis: Continue ATC budesonide therapy, as needed albuterol, encourage head of bed and I-S, will continue patient home loratadine regimen. 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 #10. History SSS: Status post pacemaker placement, encourage continued follow-up and interrogation outpatient as previously arranged. #11. Former tobacco use: Encouraged continued tobacco cessation. #12. Hypothyroidism: continue patient on levothyroxine regimen. #13. GERD: New patient on PPI. #14. JADIEL: Patient does not use any PAP therapy, uses 2 L NC nightly. #15. DVT prophylaxis: Heparin. #16. CODE status: Patient HCPOA is her brother primary and secondary is her daughter and living will is currently in place. Discussed CODE status at length including difference between FULL code, DNR-CCA and DNR-CC status. Following discussions about the differences in these status, requested DNR CCA, clarified further with examples and patient determined with intubation. Charges/Coding Visit Charges Inpatient E&M: 45986 Subs Hosp L2 04/19/25 1532 Cosigner Signature (if applicable): CC: ~ Signed [facility]08-12-2025 Consult note Author Nelda Leon [facility] Note Date/Time April 18, 2025 5: 57pm [facility] Medical Records Department [address] [place] [address] Consultation - Neurology 04/17/25 1451 MR#: [id number] Acct: [id number] Name: GEOFFREY NASSAR Rep #:[id number] : 1935 89 From: Nelda Leon MD PCP: Dr. 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 On history, these falls are occurring when patient is walking and her R leg will move in front of the L and trip her. This is an atypical movement and stereotyped. Her exam currently largely remarkable only for parkinsonian symptoms with hypomimia and slowing on LUISA testing R>L. On imaging there is subtle superficial siderosis on the L parietal which could represent her old hemorrhage and very enlarged microvascular spaces with severe global atrophy. Ddx includes progressive neurcognitive disorder triggered by her hemorrhage (or potentially she had a hemorrhage that led to the fall), possible very focal seizure or dystonia of the foot causing the symptoms, or possible neuropathy (although this was not endorsed and proprioception is largely intact on testing). Plan: - Vitamin B12, folate, Vitaming B1 - agree with routine EEG - MRI Brain no acute abnormalities - agree physical therapy Outpatient neurocognitive testing. I personally attended this patient and spent a total time of 60minutes evaluating this patient including clinical assessment, review of chart, medical history imaging, and determining appropriate treatment and workup. HPI Consult Data Date of Consult: 04/18/25 HPI Narrative HPI Narrative: The patient is an 89 y/o F w/ PMHx: Hx SSS s/p pacemaker status, GERD, HTN, HLD,Asthma, Hx VTE w/ submassive PE, Hypothyroidism, Former tobacco use, JADIEL, CKD stage III per GFR trending, Chronic anemia who presents [facility] ED on 04/17/2025 with history of mechanical fall occurring on day of presentation noted that she had been bending over and fell forward hitting the back of her head unfortunately not recalling any of the event with loss of consciousness and some mild amnesia associated with an aching generalized headache following prompting eventual ED evaluation. She does report that she believes she was unconscious only for seconds. She does report that she is beenfalling more frequently over the last several weeks. Patient reports mild headache still, generalized, rating it 2-3 out of 10 in severity with no light or sound sensitivity. Workup in the ED included T97.6, heart rate 60, BP 147/70, respiratory rate 16, 95% on room air with most recent repeat vitals heart rate 60, BP 161/77, respiratory rate 17, 95% on room air, orthostatics unremarkable, CBC with WBC 8.1, hemoglobin 10.5, MCV 99.4, platelet 232 without marked shift, unremarkable coags, BMP with BUN/canaille 35/1.40, GFR 36, [id number], urinalysis unremarkable, CT brain with no acute intracranial finding with chronic involutional and ischemic gliotic white matter changes noted previously. In the ED patient administered tetanus update. Family noted concerns of patientbeing able to safely return to home especially given her frequent falls. Patient in the ED did have irrigation of her head laceration with eventual closure with 6 lázaro. Neurologic History In the last months has fallen 3 times, ended up coming to the hospital this timebecause she had blacked out and was bleeding in her scalp requiring lázaro in back of her head. All the other falls she remembers what happens, even after a concussion she had a year ago. Has been falling. Has started having more falls the 6-8 months. These falls are happening when she walks and stands. She is endorsing tripping more and the R leg will cross in front of the L foot. The falls have all occurred while she is walking. Patient endorses starting Wellbutrin (a month ago), lasix (June 2024). She does have a nurse that comesby once a week that helps with medications - this started in September 2023 after the nurse that was taking care of her brother started caring for her and this was shortly after she had a fall. Patient does not have the sharpest memory overthe last several years. In 2023 she had fallen from a brain bleed. Family statesshe has had generalized weakness since that fall that caused the traumatic hemorrhage. Prior to these falls, denies lightheadedness or dizziness. Denies any difficulty with her other ADLs. Patient does endorse being a little slower since last September. 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 Has difficulty getting in and out of the car has been more difficulty. Currently still maria hernandez her brother. Denies issues with eating. Patient's family has lost her appetite of late and has 20 lbs the last year. There has been a decline in memory over the last year - she has had a hard time figuring out what to say and decision making has been more difficult of late. She uses a walker to walk at home, but was not walking with the walker when she was at home Neurologic Exam -? General: Laying comfortably in bed; in no acute distress. -? HENT: Normal oropharynx and mucosa. Normal external appearance of ears and nose. Exophthalmos. -? Neck: Supple, no pain or tenderness -? CV:? No peripheral edema. -? Pulmonary:? Normal respiratory effort. -? Ext: No cyanosis, edema, or deformity -? Skin: No rash. Normal palpation of skin.? -? Musculoskeletal: full range of motion; no joint tenderness. Normal digits and nails by inspection. No clubbing. -? NEURO: -? Mental Status: The patient was alert and oriented to time, place, andperson. Normal recent/remote memory, concentration, and general fund of knowledge. -? Language: speech is clear.? Naming, repetition, fluency, and comprehension intact. MOCA - (performed the tele-MOCA, missed elements on abstraction, delayed recall, calculation, and orientation) -? Cranial Nerves: R rileq3ym reactive, L pupil 4mm and less reactive. EOMI, visual mcgee full, no facial asymmetry, facial sensation intact, hearing intact, tongue midline, no evidence of atrophy or fibrillations. -? Motor: normal bulk, tone, and strength throughout. No pronator drift or satelliting. Upper and lower extremities equal bilaterally. -? Detailed strength exam as performed by the nurse/REGIS and witnessed bythe physician: l R L SA 5 5 EE 5 5 EF WE WF Contact Lens Flashing Puncher 5 5 HF KE KF 5 5 DF 5 5 PF 5 5 -? Tone: is normal and bulk is normal -? Sensation- Intact to light touch bilaterally, proprioception intact b/l -? Coordination: No dysmetria on [id number], finger follow finger or [id number]. -? Gait- walked with a walker, normal base, stooped posture, unable to assess arm swing, [facility] Medical History Presence of cardiac pacemaker (~05/29/21) [...] tablet 650 mg PO QHS pain 7 04/15/25 History baclofen 10 mg tablet 5 mg PO BID muscle relaxer 0 11/17/16 04/15/25 History cyanocobalamin (vitamin B-12) 1,000 mcg PO DAILY vitam in 11/17/16 04/15/25 History 1,000 mcg tablet multivitamin 1 tab PO DAILY vitamin 11/1704/15/25 History paroxetine HCl 10 mg tablet 40 mg PO DAILY mental heal th 11/17/16 04/15/25 History polyethylene glycol 3350 17 gram 17 gm PO PRN constipa tion 05/27/17 04/13/25 History oral powder packet aspirin 81 mg tablet,delayed 81 mg PO QHS heart health 11/27/17 04/15/25 History release lamotrigine 25 mg tablet,extended 25 mg PO DAILY 11/2704/15/25 History release 24 hr loratadine 10 mg tablet (Claritin) 10 mg PO PRN allerg ies 12/27/20 04/15/25 History albuterol sulfate 2.5 mg/3 mL 2.5 mg inhalation Q4H [place] N Sob &/Or 01/10/21 05/29/21 History (0.083 %) solution for nebulization Wheezing brimonidine 0.2 %-timolol 0.5 % 1 drp ophthalmic (eye) BID eye 01/10/21 04/15/25 History eye drops (Combigan) health ketotifen fumarate 0.025 % (0.035 1 drp ophthalmic (ey e) BID eye 01/10/21 Unknown History %) eye drops health latanoprost 0.005 % eye drops, 1 drp ophthalmic (eye) QPM eye 01/10/21 04/15/25 History emulsion health lorazepam 1 mg tablet 2 mg PO QHS anxiety 01/10/21 Unknown History pantoprazole 20 mg tablet,delayed 40 mg PO DAILY reflu x 01/10/21 04/15/25 History release vibegron 75 mg tablet (Gemtesa) 75 mg PO DAILY 1 04/15/25 History albuterol sulfate 90 mcg/actuation 1 - 2 puff inhalati on Q4H PRN PRN 02/11/22 04/15/25 Rx aerosol inhaler Shortness Of Breath #18 gram s ascorbic acid (vitamin C) 250 mg 250 mg PO BID 2 Unknown History tablet lactobacillus combination no.9 4 4,000 mmu cells PO DA BUTCH 08/19/22 04/15/25 History billion cell capsule (Adult 50 Plus Probiotic) ergocalciferol (vitamin D2) 1,250 50,000 unit PO QMONT H vitamin 09/10/22 Unknown History mcg (50,000 unit) capsule levothyroxine 88 mcg tablet 88 mcg PO .COMPLEX thyroid 07/01/24 04/14/25 History fluticasone furoate 100 1 inh inhalation DAILY #60 e a 08/22/24 04/15/25 Rx mcg-vilanterol 25 mcg/dose inhalation powder (Breo Ellipta) meloxicam 15 mg tablet 15 mg PO DAILY 09/21/2406/01 History lisinopril 20 mg tablet 20 mg PO DAILY blood pressur e #90 03/31/25 04/15/25 Rx tabs estradiol 0.01% (0.1 mg/gram) 1 g vaginal 3XW 3 months #42.5 04/14/25 04/10/25 Rx vaginal cream grams nitrofurantoin 100 mg PO BID #14 caps 04/1404/16/25 Rx monohydrate/macrocrystals 100 mg capsule (Macrobid) furosemide 20 mg tablet 10 mg PO QAM Diuretic 04/15/25 History Allergy/AdvReac Type Severity Reaction Status Date / Time ciprofloxacin (From Cipro) Allergy Itching Verified 04/17/25 02:22 diphenhydramine (From Allergy Rash Verified 04/17/25 02:22 Benadryl) Penicillins Allergy Hives Verified 04/17/25 02:22 shellfish derived Allergy Anaphylaxis Verified 04/17/25 02:22 Sulfa (Sulfonamide Allergy Upset Verified 04/17/25 02:22 Antibiotics) Stomach tiotropium (From Spiriva Allergy Other Verified 04/17/25 02:22 with HandiHaler) ketamine AdvReac hallucinati Verified 04/17/25 02:22 ons Family History Mother Breast cancer Colon cancer Father Cancer Lung Grandmother Breast cancer CVA (cerebral vascular accident) Surgical History History of tonsillectomy History of cholecystectomy History of bronchoscopy History of cataract extraction History of hysterectomy History of bladder suspension procedure Social History (Updated 04/17/25 @ 00:[address] Idalia Marti MD) household members: none Smoking Status: Former smoker Tobacco: How many years used: 10 second hand exposure: No alcohol intake: current details: occasional substance use type: does not use caffeine: Yes Type: coffee what type of physical activity do you participate in: other seatbelt use: always do you feel safe at home: Yes Vital Signs Vital Signs Vital Signs: 04/16/25 18:46 04/16/25 20:45 04/16/25 21:09 Temperature 97.6 F L Temperature Source Oral Pulse Rate 60 63 Pulse Rate [Lying] Pulse Rate [Sitting (for 1 minute prior to obtaining)] Pulse Rate [Standing (for 1 minute prior to obtaining)] Respiratory Rate 16 18 Respiratory Effort Normal Respiratory Depth Normal Respiratory Pattern Normal Blood Pressure 147/70 H 149/77 H Blood Pressure [Lying] Blood Pressure [Sitting (for 1 minute prior to obtaining)] Blood Pressure [Standing (for 1 minute prior to obtaining)] Blood Pressure Mean 95 101 Blood Pressure Mean [Lying] Blood Pressure Mean [Sitting (for 1 minute prior to obtaining)] Blood Pressure Mean [Standing (for 1 minute prior to obtaining)] Blood Pressure Source Blood Pressure Position Blood Pressure Location Pulse Ox 95 93 Oxygen Delivery Method Room Air Room Air Room Air 04/16/25 22:00 04/16/25 23:26 04/17/25 00:00 Temperature Temperature Source Pulse Rate 61 60 Pulse Rate [Lying] 60 Pulse Rate [Sitting (for 1 minute prior to obtaining)] 62 Pulse Rate [Standing (for 1 minute prior to obtaining)] 78 Respiratory Rate 18 17 Respiratory Effort Respiratory Depth Respiratory Pattern Blood Pressure 147/72 H 161/77 H Blood Pressure [Lying] 142/70 H Blood Pressure [Sitting (for 1 minute prior to obtaining)] 142/77 H Blood Pressure [Standing (for 1 minute prior to obtaining)] 141/87 H Blood Pressure Mean 97 105 Blood Pressure Mean [Lying] 94 Blood Pressure Mean [Sitting (for 1 minute prior to obtaining)] 98 Blood Pressure Mean [Standing (for 1 minute prior to obtaining)] 105 Blood Pressure Source Blood Pressure Position Blood Pressure Location Pulse Ox 100 95 Oxygen Delivery Method Room Air Room Air 04/17/25 00:54 04/17/25 02:07 04/17/25 02:30 Temperature 98.3 F 98.5 F Temperature Source Oral Pulse Rate 63 63 Pulse Rate [Lying] Pulse Rate [Sitting (for 1 minute prior to obtaining)] Pulse Rate [Standing (for 1 minute prior to obtaining)] Respiratory Rate 22 H 16 Respiratory Effort Normal Non-Labored Respiratory Depth Normal Respiratory Pattern Normal Blood Pressure 153/83 H 158/77 H Blood Pressure [Lying] Blood Pressure [Sitting (for 1 minute prior to obtaining)] Blood Pressure [Standing (for 1 minute prior to obtaining)] Blood Pressure Mean 106 104 Blood Pressure Mean [Lying] Blood Pressure Mean [Sitting (for 1 minute prior to obtaining)] Blood Pressure Mean [Standing (for 1 minute prior to obtaining)] Blood Pressure Source Monitor Blood Pressure Position Semi-Fowlers Blood Pressure Location Right Arm Pulse Ox 95 97 Oxygen Delivery Method Room Air Room Air 04/17/25 07:03 04/17/25 07:03 04/17/25 08:00 Temperature 99.0 F Temperature Source Oral Pulse Rate 60 63 Pulse Rate [Lying] Pulse Rate [Sitting (for 1 minute prior to obtaining)] Pulse Rate [Standing (for 1 minute prior to obtaining)] Respiratory Rate 15 17 Respiratory Effort Respiratory Depth Respiratory Pattern Normal Blood Pressure 135/66 H Blood Pressure [Lying] Blood Pressure [Sitting (for 1 minute prior to obtaining)] Blood Pressure [Standing (for 1 minute prior to obtaining)] Blood Pressure Mean 89 Blood Pressure Mean [Lying] Blood Pressure Mean [Sitting (for 1 minute prior to obtaining)] Blood Pressure Mean [Standing (for 1 minute prior to obtaining)] Blood Pressure Source Monitor Blood Pressure Position Semi-Fowlers Blood Pressure Location Left Arm Pulse Ox 91 90 Oxygen Delivery Method Room Air Room Air 04/17/25 10:00 04/17/25 14:45 Temperature Temperature Source Pulse Rate 79 Pulse Rate [Lying] Pulse Rate [Sitting (for 1 minute prior to obtaining)] Pulse Rate [Standing (for 1 minute prior to obtaining)] Respiratory Rate 16 Respiratory Effort Normal Non-Labored Respiratory Depth Respiratory Pattern Blood Pressure 123/72 H Blood Pressure [Lying] Blood Pressure [Sitting (for 1 minute prior to obtaining)] Blood Pressure [Standing (for 1 minute prior to obtaining)] Blood Pressure Mean 89 Blood Pressure Mean [Lying] Blood Pressure Mean [Sitting (for 1 minute prior to obtaining)] Blood Pressure Mean [Standing (for 1 minute prior to obtaining)] Blood Pressure Source Monitor Blood Pressure Position Supine Blood Pressure Location Right Arm Pulse Ox 92 Oxygen Delivery Method Room Air Room Air Weight Weight: 73.2 kg Body Mass Index (BMI) 29.5 EEG Results Procedure Details EEG Procedure Details: GEOFFREY NASSAR is a 89 year old F with a past medical history of , who presents for evaluation of Electroencephalogram on DATE at TIME Lab / Micro Data 04/17/25 05:42 04/17/25 05:42 Labs: Laboratory Results - last 24 hr 04/16/25 21:24: WBC 8.1, RBC 3.38 L, Hgb 10.5 L, Hct 33.6 L, MCV 99.4 H, MCH 31.1, MCHC 31.3 L, RDW Std Deviation 54.9 H, RDW Coeff of Dave 14.9 H, Plt Count 232, MPV 10.2, Immature Gran % (Auto) 0.900, Neut % (Auto) 62.5, Lymph % (Auto) 22.0, Gulf % (Auto) 11.1 H, Eos % (Auto) 2.9, Baso % (Auto) 0.6, Absolute Neuts (auto) 5.0, Absolute Lymphs (auto) 1.77, Nucleated RBC % 0, PT 13.4, INR 1.0, APTT 27.1, Sodium 141, Potassium 4.1, Chloride 107, Carbon Dioxide 23.9, Anion Gap 10, BUN 35 H, Creatinine 1.40 H, Estim Creat Clear Calc 25.67 L, Est GFR (MDRD) Non-Af 36 L, BUN/Creatinine Ratio 24.6 H, Glucose 103 H, Calcium 9.4, Magnesium 2.1, Urine Color Yellow, Urine Clarity Clear, Urine pH 6.5, Ur Specific [place] 1.010, Urine Protein Negative, Urine Glucose (UA) Normal, UrineKetones Negative, Urine Occult Blood Negative, Urine Nitrite Negative, Urine Bilirubin Negative, Urine Urobilinogen Normal, Ur Leukocyte Esterase Negative, Urine RBC 0-5 SEEN, Urine WBC 0-5 SEEN, Ur Squamous Epith Cells 0-5 SEEN, Urine Bacteria RARE, Urine Mucus 0 SEEN 04/17/25 05:42: WBC 9.6, RBC 3.39 L, Hgb 10.7 L, Hct 33.4 L, MCV 98.5, MCH 31.6,MCHC 32.0, RDW Std Deviation 54.0 H, RDW Coeff of Dave 14.8 H, Plt Count 245, MPV10.4, Immature Gran % (Auto) 0.500, Neut % (Auto) 61.0, Lymph % (Auto) 23.4, Gulf % (Auto) 11.3 H, Eos % (Auto) 3.2, Baso % (Auto) 0.6, Absolute Neuts (auto) 5.9, Absolute Lymphs (auto) 2.25, Nucleated RBC % 0, Sodium 138, Potassium 3.6, Chloride 105, Carbon Dioxide 22.7, Anion Gap 11, BUN 28 H, Creatinine 1.11, Estim Creat Clear Calc 32.82 L, Est GFR (MDRD) Non-Af 48 L, BUN/Creatinine Ratio 25.3 H, Glucose 90, Calcium 9.3, Total Bilirubin 0.47, AST 27, ALT 12, Alkaline Phosphatase 165 H, Total Protein 6.2, Albumin 3.2 L, Globulin 3.0, Albumin/Globulin Ratio 1.1, TSH 1.080 Imaging Radiology Impression Brain CT 04/16/25 21:01 IMPRESSION: 1. No intracranial hemorrhage. No mass effect or midline shift. 2. 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 Reading [facility] Active Medications Active Medications Active Medications: Current Medications Generic Name Dose Route Start Last Admin Trade Name Freq PRN Reason Stop Dose Admin Acetaminophen 650 mg 04/17/25 01:56 04/17/25 02:58 Acetaminophen 325 Mg Tablet PO 650 mg Q4H PRN PRN Administration Fever, pain 1-06/16 Al Hydroxide/Mg Hydroxide 30 ml 04/17/25 01:56 Mag Hydrox/Al Hydrox/Simeth 30 Ml Udc PO Q6H PRN PRN Gastric Burning Albuterol Sulfate 2.5 mg 04/17/25 01:56 Albuterol 2.5 Mg/3 Ml Vial.Neb. INHALATION Q2H PRN PRN Dyspnea, wheezing Aspirin 81 mg 04/17/25 22:00 Aspirin E.C. 81 Mg Tablet PO QHS ASHER Brimonidine Tartrate 1 drp 04/17/25 10:00 04/17/25 10:22 Brimonidine 0.2% 5ml Bottle OPHTHALMIC 1 drp BID ASHER Administration Budesonide 0.5 mg 04/17/25 01:56 04/17/25 07:03 Budesonide Respules 0.5 Mg/2 Ml Ampul.Neb. INHALATION 0.5 mg BID.RT ASHER Administration Calamine/Phenol 1 applic 04/17/25 10:00 04/17/25 10:28 Menthol/Lanolin/Calamine/Znox 113 Gm Tube TOPICAL 1 applic 4X/DAY ASHER Administration Protocol Enoxaparin Sodium 30 mg 04/17/25 10:00 04/17/25 10:22 Enoxaparin 30 Mg/0.3 Ml Syringe SC 30 mg DAILY ASHER Administration Furosemide 10 mg 04/17/25 10:00 04/17/25 10:22 Furosemide 20 Mg Tablet PO 10 mg QAM ASHER Administration Protocol Guaifenesin 20 ml 04/17/25 01:56 Guaifenesin 10 Ml Udc (200mg/10ml) PO Q4H PRN PRN COUGH Hydralazine HCl 10 mg 04/17/25 01:56 Hydralazine 20 Mg/Ml Vial IV Q4H PRN PRN SBP > 160 Protocol Sodium Chloride 250 mls @ 15 mls/hr 04/17/25 02:20 IV .[id number] PRN Saline Flush Sodium Chloride 250 mls @ 15 mls/hr 04/17/25 02:20 IV .[id number] PRN Additional IVPB Infusion Lamotrigine 25 mg 04/17/25 10:00 04/17/25 10:23 Lamotrigine 25 Mg Tablet PO 25 mg DAILY ASHER Administration Latanoprost 1 drp 04/17/25 22:00 Latanoprost 0.005% 1 Bottle OPHTHALMIC QHS ASHER Levothyroxine Sodium 88 mcg 04/17/25 06:00 04/17/25 05:23 Levothyroxine 88 Mcg Tablet PO 88 mcg [id number] ASHER Administration Lisinopril 20 mg 04/17/25 10:00 04/17/25 10:22 Lisinopril 20 Mg Tablet PO 20 mg DAILY ASHER Administration Protocol Loratadine 10 mg 04/17/25 10:00 04/17/25 10:23 Loratadine 10 Mg Tablet PO 10 mg Q48 ASHER Administration Melatonin 3 mg 04/17/25 01:56 Melatonin 3 Mg Tablet PO QHS PRN PRN INSOMNIA Meloxicam 15 mg 04/17/25 10:00 04/17/25 10:23 Meloxicam 15 Mg Tablet PO 15 mg DAILY ASHER Administration Ondansetron HCl 4 mg 04/17/25 01:56 Ondansetron 4 Mg/2 Ml Vial IV Q8H PRN PRN NAUSEA/VOMITING Pantoprazole Sodium 40 mg 04/17/25 10:00 04/17/25 10:23 Pantoprazole Sodium 40 Mg Tablet PO 40 mg DAILY ASHER Administration Paroxetine HCl 40 mg 04/17/25 10:00 04/17/25 10:23 Paroxetine 20 Mg Tablet PO 40 mg DAILY ASHER Administration Polyethylene Glycol 17 gm 04/17/25 10:00 04/17/25 10:28 Polyethylene Glycol 3350 17 Gm Packet PO 17 gm DAILY ASHER Administration Senna/Docusate Sodium 2 tablet 04/17/25 01:56 Senna/Docusate Sodium 1 Tablet PO BID PRN PRN Constipation Sodium Chloride 10 - 40 ml 04/17/25 02:20 04/17/25 05:23 0.9% Saline Lock 10 Ml Syringe IV 10 ml UD PRN Administration SALINE FLUSH Timolol Maleate 1 drp 04/17/25 10:00 04/17/25 10:23 Timolol 0.5% 5ml Opth.Btl OPHTHALMIC 1 drp BID ASHER Administration 04/18/251756 <Electronically signed by Nelda Leon MD> Cosigner Signature (if applicable): CC: Dr. Ken Whelan MD~ Signed [facility] Work Phone: [phone] Consult note [facility] Medical Records Department [address] [place] [address] Consultation - Neurology 04/17/25 1451 MR#: [id number] Acct: [id number] Name: GEOFFREY NASSAR Rep #:[id number] : 1935 89 From: Nelda Leon MD PCP: Dr. 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 On history, these falls are occurring when patient is walking and her R leg will move in front of the L and trip her. This is an atypical movement and stereotyped. Her exam currently largelyremarkable only for parkinsonian symptoms with hypomimia and slowing on LUISA testing R>L. On imaging there is subtle superficial siderosis on the L parietal which could represent her old hemorrhage and very enlarged microvascular spaces with severe global atrophy. Ddx includes progressive neurcognitive disorder triggered by her hemorrhage (or potentially she hada hemorrhage that led to the fall), possible very focal seizure or dystonia of the foot causing thesymptoms, or possible neuropathy (although this was not endorsed and proprioception is largely intact on testing). Plan: - Vitamin B12, folate, Vitaming B1 - agree with routine EEG - MRI Brain no acute abnormalities - agree physical therapy Outpatient neurocognitive testing. I personally attended this patient and spent a total time of 60minutes evaluating this patient including clinical assessment, review of chart, medical history imaging, and determining appropriate treatment and workup. HPI Consult Data Date of Consult: 04/18/25 HPI Narrative HPI Narrative: The patient is an 89 y/o F w/ PMHx: Hx SSS s/p pacemaker status, GERD, HTN, HLD,Asthma, Hx VTE w/ submassive PE, Hypothyroidism, Former tobacco use, JADIEL, CKD stage III per GFR trending, Chronic anemia [facility] with history of mechanical fall occurring on day of presentation noted that she had been bending over and fell forward hitting the back of her head unfortunately not recalling any of the event with loss of consciousness and some mild amnesia associated with an aching generalized headache following prompting eventual ED evaluation. Shedoes report that she believes she was unconscious only for seconds. She does report that she is beenfalling more frequently over the last several weeks. Patient reports mild headache still, generalized, rating it 2-3 out of 10 in severity with no light or sound sensitivity. Workup in the ED included T97.6, heart rate 60, BP 147/70, respiratory rate 16, 95% on room air with most recent repeat vitals heart rate 60, BP 161/77, respiratory rate 17, 95% on room air, orthostatics unremarkable, CBC with WBC 8.1, hemoglobin 10.5, MCV 99.4, platelet 232 without marked shift, unremarkable coags, BMP with BUN/canaille 35/1.40, GFR 36, [id number], urinalysis unremarkable, CT brain with no acute intracranial finding with chronic involutional and ischemic gliotic white matter changes noted previously. In the ED patient administered tetanus update. Family noted concerns of patientbeing able to safely return to home especially given her frequent falls. Patient in the ED did have irrigation of her head laceration with eventual closure with 6 lázaro. Neurologic History In the last months has fallen 3 times, ended up coming to the hospital this timebecause she had blacked out and was bleeding in her scalp requiring lázaro in back of her head. All the other falls she remembers what happens, even after a concussion she had a year ago. Has been falling. Has started having more falls the 6-8 months. These falls are happening when she walks and stands. She is endorsing tripping more and the R leg will cross in front of the L foot. The falls have all occurred whileshe is walking. Patient endorses starting Wellbutrin (a month ago), lasix (June 2024). She does have a nurse that comesby once a week that helps with medications - this started in September 2023 after the nurse that was taking care of her brother started caring for her and this was shortly after she had a fall. Patient does not have the sharpest memory overthe last several years. In 2023 she hadfallen from a brain bleed. Family stateshector has had generalized weakness since that fall that caused the traumatic hemorrhage. Prior to these falls, denies lightheadedness or dizziness. Denies any difficulty with her other ADLs. Patient does endorse being a little slower since last September. 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 Has difficulty getting in and out of the car has been more difficulty. Currently still maria hernandez her brother. Denies issues with eating. Patient's family has lost her appetite of late and has 20 lbs the last year. There has been a decline in memory over the last year - she has had a hard time figuring out what to say and decision making has been more difficult of late. She uses a walker to walk at home, but was not walking with the walker when she was at home Neurologic Exam -? General: Laying comfortably in bed; in no acute distress. -? HENT: Normal oropharynx and mucosa. Normal external appearance of ears and nose. Exophthalmos. -? Neck: Supple, no pain or tenderness -? CV:? No peripheral edema. -? Pulmonary:? Normal respiratory effort. -? Ext: No cyanosis, edema, or deformity -? Skin: No rash. Normal palpation of skin.? -? Musculoskeletal: full range of motion; no joint tenderness. Normal digits and nails by inspection. No clubbing. -? NEURO: -? Mental Status: The patient was alert and oriented to time, place, andperson. Normal recent/remote memory, concentration, and general fund of knowledge. -? Language: speech is clear.? Naming, repetition, fluency, and comprehension intact. MOCA - 15/22 (performed the tele-MOCA, missed elements on abstraction, delayed recall, calculation,and orientation) -? Cranial Nerves: R [id number] reactive, L pupil 4mm and less reactive. EOMI, visual mcgee full, no facial asymmetry, facial sensation intact, hearing intact, tongue midline, no evidence of atrophy or fibrillations. -? Motor: normal bulk, tone, and strength throughout. No pronator drift or satelliting. Upper and lower extremities equal bilaterally. -? Detailed strength exam as performed by the nurse/REGIS and witnessed bythe physician: l R L SA 5 5 EE 5 5 EF WE WF Contact Lens Flashing Puncher 5 5 HF KE KF 5 5 DF 5 5 PF 5 5 -? Tone: is normal and bulk is normal -? Sensation- Intact to light touch bilaterally, proprioception intact b/l -? Coordination: No dysmetria on [id number], finger follow finger or [id number]. -? Gait- walked with a walker, normal base, stooped posture, unable to assess arm swing, [facility] Medical History Presence of cardiac pacemaker (~05/29/21) [...] tablet 650 mg PO QHS pain 7 04/15/25 History baclofen 10 mg tablet 5 mg PO BID muscle relaxer 0 11/17/16 04/15/25 History cyanocobalamin (vitamin B-12) 1,000 mcg PO DAILY vitam in 11/17/16 04/15/25 History 1,000 mcg tablet multivitamin 1 tab PO DAILY vitamin 11/1704/15/25 History paroxetine HCl 10 mg tablet 40 mg PO DAILY mental heal th 11/17/16 04/15/25 History polyethylene glycol 3350 17 gram 17 gm PO PRN constipa tion 05/27/17 04/13/25 History oral powder packet aspirin 81 mg tablet,delayed 81 mg PO QHS heart health 11/27/17 04/15/25 History release lamotrigine 25 mg tablet,extended 25 mg PO DAILY 11/2704/15/25 History release 24 hr loratadine 10 mg tablet (Claritin) 10 mg PO PRN allerg ies 12/27/20 04/15/25 History albuterol sulfate 2.5 mg/3 mL 2.5 mg inhalation Q4H [place] N Sob &/Or 01/10/21 05/29/21 History (0.083 %) solution for nebulization Wheezing brimonidine 0.2 %-timolol 0.5 % 1 drp ophthalmic (eye) BID eye 01/10/21 04/15/25 History eye drops (Combigan) health ketotifen fumarate 0.025 % (0.035 1 drp ophthalmic (ey e) BID eye 01/10/21 Unknown History %) eye drops health latanoprost 0.005 % eye drops, 1 drp ophthalmic (eye) QPM eye 01/10/21 04/15/25 History emulsion health lorazepam 1 mg tablet 2 mg PO QHS anxiety 01/10/21 Unknown History pantoprazole 20 mg tablet,delayed 40 mg PO DAILY reflu x 01/10/21 04/15/25 History release vibegron 75 mg tablet (Gemtesa) 75 mg PO DAILY 1 04/15/25 History albuterol sulfate 90 mcg/actuation 1 - 2 puff inhalati on Q4H PRN PRN 02/11/22 04/15/25 Rx aerosol inhaler Shortness Of Breath #18 gram s ascorbic acid (vitamin C) 250 mg 250 mg PO BID 2 Unknown History tablet lactobacillus combination no.9 4 4,000 mmu cells PO DA BUTCH 08/19/22 04/15/25 History billion cell capsule (Adult 50 Plus Probiotic) ergocalciferol (vitamin D2) 1,250 50,000 unit PO QMONT H vitamin 09/10/22 Unknown History mcg (50,000 unit) capsule levothyroxine 88 mcg tablet 88 mcg PO .COMPLEX thyroid 07/01/24 04/14/25 History fluticasone furoate 100 1 inh inhalation DAILY #60 e a 08/22/24 04/15/25 Rx mcg-vilanterol 25 mcg/dose inhalation powder (Breo Ellipta) meloxicam 15 mg tablet 15 mg PO DAILY 09/21/2406/01 History lisinopril 20 mg tablet 20 mg PO DAILY blood pressur e #90 03/31/25 04/15/25 Rx tabs estradiol 0.01% (0.1 mg/gram) 1 g vaginal 3XW 3 months #42.5 04/14/25 04/10/25 Rx vaginal cream grams nitrofurantoin 100 mg PO BID #14 caps 04/1404/16/25 Rx monohydrate/macrocrystals 100 mg capsule (Macrobid) furosemide 20 mg tablet 10 mg PO QAM Diuretic 04/15/25 History Allergy/AdvReac Type Severity Reaction Status Date / Time ciprofloxacin (From Cipro) Allergy Itching Verified 04/17/25 02:22 diphenhydramine (From Allergy Rash Verified 04/17/25 02:22 Benadryl) Penicillins Allergy Hives Verified 04/17/25 02:22 shellfish derived Allergy Anaphylaxis Verified 04/17/25 02:22 Sulfa (Sulfonamide Allergy Upset Verified 04/17/25 02:22 Antibiotics) Stomach tiotropium (From Spiriva Allergy Other Verified 04/17/25 02:22 with HandiHaler) ketamine AdvReac hallucinati Verified 04/17/25 02:22 ons Family History Mother Breast cancer Colon cancer Father Cancer Lung Grandmother Breast cancer CVA (cerebral vascular accident) Surgical History History of tonsillectomy History of cholecystectomy History of bronchoscopy History of cataract extraction History of hysterectomy History of bladder suspension procedure Social History (Updated 04/17/25 @ 00:[address] Idalia Marti MD) household members: none Smoking Status: Former smoker Tobacco: How many years used: 10 second hand exposure: No alcohol intake: current details: occasional substance use type: does not use caffeine: Yes Type: coffee what type of physical activity do you participate in: other seatbelt use: always do you feel safe at home: Yes Vital Signs Vital Signs Vital Signs: 04/16/25 18:46 04/16/25 20:45 04/16/25 21:09 Temperature 97.6 F L Temperature Source Oral Pulse Rate 60 63 Pulse Rate [Lying] Pulse Rate [Sitting (for 1 minute prior to obtaining)] Pulse Rate [Standing (for 1 minute prior to obtaining)] Respiratory Rate 16 18 Respiratory Effort Normal Respiratory Depth Normal Respiratory Pattern Normal Blood Pressure 147/70 H 149/77 H Blood Pressure [Lying] Blood Pressure [Sitting (for 1 minute prior to obtaining)] Blood Pressure [Standing (for 1 minute prior to obtaining)] Blood Pressure Mean 95 101 Blood Pressure Mean [Lying] Blood Pressure Mean [Sitting (for 1 minute prior to obtaining)] Blood Pressure Mean [Standing (for 1 minute prior to obtaining)] Blood Pressure Source Blood Pressure Position Blood Pressure Location Pulse Ox 95 93 Oxygen Delivery Method Room Air Room Air Room Air 04/16/25 22:00 04/16/25 23:26 04/17/25 00:00 Temperature Temperature Source Pulse Rate 61 60 Pulse Rate [Lying] 60 Pulse Rate [Sitting (for 1 minute prior to obtaining)] 62 Pulse Rate [Standing (for 1 minute prior to obtaining)] 78 Respiratory Rate 18 17 Respiratory Effort Respiratory Depth Respiratory Pattern Blood Pressure 147/72 H 161/77 H Blood Pressure [Lying] 142/70 H Blood Pressure [Sitting (for 1 minute prior to obtaining)] 142/77 H Blood Pressure [Standing (for 1 minute prior to obtaining)] 141/87 H Blood Pressure Mean 97 105 Blood Pressure Mean [Lying] 94 Blood Pressure Mean [Sitting (for 1 minute prior to obtaining)] 98 Blood Pressure Mean [Standing (for 1 minute prior to obtaining)] 105 Blood Pressure Source Blood Pressure Position Blood Pressure Location Pulse Ox 100 95 Oxygen Delivery Method Room Air Room Air 04/17/25 00:54 04/17/25 02:07 04/17/25 02:30 Temperature 98.3 F 98.5 F Temperature Source Oral Pulse Rate 63 63 Pulse Rate [Lying] Pulse Rate [Sitting (for 1 minute prior to obtaining)] Pulse Rate [Standing (for 1 minute prior to obtaining)] Respiratory Rate 22 H 16 Respiratory Effort Normal Non-Labored Respiratory Depth Normal Respiratory Pattern Normal Blood Pressure 153/83 H 158/77 H Blood Pressure [Lying] Blood Pressure [Sitting (for 1 minute prior to obtaining)] Blood Pressure [Standing (for 1 minute prior to obtaining)] Blood Pressure Mean 106 104 Blood Pressure Mean [Lying] Blood Pressure Mean [Sitting (for 1 minute prior to obtaining)] Blood Pressure Mean [Standing (for 1 minute prior to obtaining)] Blood Pressure Source Monitor Blood Pressure Position Semi-Fowlers Blood Pressure Location Right Arm Pulse Ox 95 97 Oxygen Delivery Method Room Air Room Air 04/17/25 07:03 04/17/25 07:03 04/17/25 08:00 Temperature 99.0 F Temperature Source Oral Pulse Rate 60 63 Pulse Rate [Lying] Pulse Rate [Sitting (for 1 minute prior to obtaining)] Pulse Rate [Standing (for 1 minute prior to obtaining)] Respiratory Rate 15 17 Respiratory Effort Respiratory Depth Respiratory Pattern Normal Blood Pressure 135/66 H Blood Pressure [Lying] Blood Pressure [Sitting (for 1 minute prior to obtaining)] Blood Pressure [Standing (for 1 minute prior to obtaining)] Blood Pressure Mean 89 Blood Pressure Mean [Lying] Blood Pressure Mean [Sitting (for 1 minute prior to obtaining)] Blood Pressure Mean [Standing (for 1 minute prior to obtaining)] Blood Pressure Source Monitor Blood Pressure Position Semi-Fowlers Blood Pressure Location Left Arm Pulse Ox 91 90 Oxygen Delivery Method Room Air Room Air 04/17/25 10:00 04/17/25 14:45 Temperature Temperature Source Pulse Rate 79 Pulse Rate [Lying] Pulse Rate [Sitting (for 1 minute prior to obtaining)] Pulse Rate [Standing (for 1 minute prior to obtaining)] Respiratory Rate 16 Respiratory Effort Normal Non-Labored Respiratory Depth Respiratory Pattern Blood Pressure 123/72 H Blood Pressure [Lying] Blood Pressure [Sitting (for 1 minute prior to obtaining)] Blood Pressure [Standing (for 1 minute prior to obtaining)] Blood Pressure Mean 89 Blood Pressure Mean [Lying] Blood Pressure Mean [Sitting (for 1 minute prior to obtaining)] Blood Pressure Mean [Standing (for 1 minute prior to obtaining)] Blood Pressure Source Monitor Blood Pressure Position Supine Blood Pressure Location Right Arm Pulse Ox 92 Oxygen Delivery Method Room Air Room Air Weight Weight: 73.2 kg Body Mass Index (BMI) 29.5 EEG Results Procedure Details EEG Procedure Details: GEOFFREY NASSAR is a 89 year old F with a past medical history of , who presents for evaluation of Electroencephalogram on DATE at TIME Lab / Micro Data 04/17/25 05:42 04/17/25 05:42 Labs: Laboratory Results - last 24 hr 04/16/25 21:24: WBC 8.1, RBC 3.38 L, Hgb 10.5 L, Hct 33.6 L, MCV 99.4 H, MCH 31.1, MCHC 31.3 L, RDWStd Deviation 54.9 H, RDW Coeff of Dave 14.9 H, Plt Count 232, MPV 10.2, Immature Gran % (Auto) 0.900, Neut % (Auto) 62.5, Lymph % (Auto) 22.0, Gulf % (Auto) 11.1 H, Eos % (Auto) 2.9, Baso % (Auto) 0.6, Absolute Neuts (auto) 5.0, Absolute Lymphs (auto) 1.77, Nucleated RBC % 0, PT 13.4, INR 1.0, APTT27.1, Sodium 141, Potassium 4.1, Chloride 107, Carbon Dioxide 23.9, Anion Gap 10, BUN 35 H, Creatinine 1.40 H, Estim Creat Clear Calc 25.67 L, Est GFR (MDRD) Non-Af 36 L, BUN/Creatinine Ratio 24.6 H,Glucose 103 H, Calcium 9.4, Magnesium 2.1, Urine Color Yellow, Urine Clarity Clear, Urine pH 6.5, Ur Specific [place] 1.010, Urine Protein Negative, Urine Glucose (UA) Normal, UrineKetones Negative, Urine Occult Blood Negative, Urine Nitrite Negative, Urine Bilirubin Negative, Urine Urobilinogen Normal, Ur Leukocyte Esterase Negative, Urine RBC 0-5 SEEN, Urine WBC 0-5 SEEN, Ur Squamous Epith Cells 0-5 SEEN, Urine Bacteria RARE, Urine Mucus 0 SEEN 04/17/25 05:42: WBC 9.6, RBC 3.39 L, Hgb 10.7 L, Hct 33.4 L, MCV 98.5, MCH 31.6,MCHC 32.0, RDW Std Deviation 54.0 H, RDW Coeff of Dave 14.8 H, Plt Count 245, MPV10.4, Immature Gran % (Auto) 0.500, Neut % (Auto) 61.0, Lymph % (Auto) 23.4, Gulf % (Auto) 11.3 H, Eos % (Auto) 3.2, Baso % (Auto) 0.6, Absolute Neuts (auto) 5.9, Absolute Lymphs (auto) 2.25, Nucleated RBC % 0, Sodium 138, Potassium 3.6, Chloride 105, Carbon Dioxide 22.7, Anion Gap 11, BUN 28 H, Creatinine 1.11, Estim Creat Clear Calc 32.82 L, Est GFR (MDRD) Non-Af 48 L, BUN/Creatinine Ratio 25.3 H, Glucose 90, Calcium 9.3, Total Bilirubin 0.47, AST 27, ALT 12, Alkaline Phosphatase 165 H, Total Protein 6.2, Albumin 3.2 L, Globulin 3.0, Albumin/Globulin Ratio 1.1, TSH 1.080 Imaging Radiology Impression Brain CT 04/16/25 21:01 IMPRESSION: 1. No intracranial hemorrhage. No mass effect or midline shift. 2. 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 Reading Location: [facility] Active Medications Active Medications Active Medications: Current Medications Generic Name Dose Route Start Last Admin Trade Name Freq PRN Reason Stop Dose Admin Acetaminophen 650 mg 04/17/25 01:56 04/17/25 02:58 Acetaminophen 325 Mg Tablet PO 650 mg Q4H PRN PRN Administration Fever, pain 1-06/16 Al Hydroxide/Mg Hydroxide 30 ml 04/17/25 01:56 Mag Hydrox/Al Hydrox/Simeth 30 Ml Udc PO Q6H PRN PRN Gastric Burning Albuterol Sulfate 2.5 mg 04/17/25 01:56 Albuterol 2.5 Mg/3 Ml Vial.Neb. INHALATION Q2H PRN PRN Dyspnea, wheezing Aspirin 81 mg 04/17/25 22:00 Aspirin E.C. 81 Mg Tablet PO QHS ASHER Brimonidine Tartrate 1 drp 04/17/25 10:00 04/17/25 10:22 Brimonidine 0.2% 5ml Bottle OPHTHALMIC 1 drp BID ASHER Administration Budesonide 0.5 mg 04/17/25 01:56 04/17/25 07:03 Budesonide Respules 0.5 Mg/2 Ml Ampul.Neb. INHALATION 0.5 mg BID.RT ASHER Administration Calamine/Phenol 1 applic 04/17/25 10:00 04/17/25 10:28 Menthol/Lanolin/Calamine/Znox 113 Gm Tube TOPICAL 1 applic 4X/DAY ASHER Administration Protocol Enoxaparin Sodium 30 mg 04/17/25 10:00 04/17/25 10:22 Enoxaparin 30 Mg/0.3 Ml Syringe SC 30 mg DAILY ASHER Administration Furosemide 10 mg 04/17/25 10:00 04/17/25 10:22 Furosemide 20 Mg Tablet PO 10 mg QAM ASHER Administration Protocol Guaifenesin 20 ml 04/17/25 01:56 Guaifenesin 10 Ml Udc (200mg/10ml) PO Q4H PRN PRN COUGH Hydralazine HCl 10 mg 04/17/25 01:56 Hydralazine 20 Mg/Ml Vial IV Q4H PRN PRN SBP > 160 Protocol Sodium Chloride 250 mls @ 15 mls/hr 04/17/25 02:20 IV .[id number] PRN Saline Flush Sodium Chloride 250 mls @ 15 mls/hr 04/17/25 02:20 IV .[id number] PRN Additional IVPB Infusion Lamotrigine 25 mg 04/17/25 10:00 04/17/25 10:23 Lamotrigine 25 Mg Tablet PO 25 mg DAILY ASHER Administration Latanoprost 1 drp 04/17/25 22:00 Latanoprost 0.005% 1 Bottle OPHTHALMIC [facility] Levothyroxine Sodium 88 mcg 04/17/25 06:00 04/17/25 05:23 Levothyroxine 88 Mcg Tablet PO 88 mcg [id number] ASHER Administration Lisinopril 20 mg 04/17/25 10:00 04/17/25 10:22 Lisinopril 20 Mg Tablet PO 20 mg DAILY ASHER Administration Protocol Loratadine 10 mg 04/17/25 10:00 04/17/25 10:23 Loratadine 10 Mg Tablet PO 10 mg Q48 ASHER Administration Melatonin 3 mg 04/17/25 01:56 Melatonin 3 Mg Tablet PO QHS PRN PRN INSOMNIA Meloxicam 15 mg 04/17/25 10:00 04/17/25 10:23 Meloxicam 15 Mg Tablet PO 15 mg DAILY ASHER Administration Ondansetron HCl 4 mg 04/17/25 01:56 Ondansetron 4 Mg/2 Ml Vial IV Q8H PRN PRN NAUSEA/VOMITING Pantoprazole Sodium 40 mg 04/17/25 10:00 04/17/25 10:23 Pantoprazole Sodium 40 Mg Tablet PO 40 mg DAILY ASHER Administration Paroxetine HCl 40 mg 04/17/25 10:00 04/17/25 10:23 Paroxetine 20 Mg Tablet PO 40 mg DAILY ASHER Administration Polyethylene Glycol 17 gm 04/17/25 10:00 04/17/25 10:28 Polyethylene Glycol 3350 17 Gm Packet PO 17 gm DAILY ASHER Administration Senna/Docusate Sodium 2 tablet 04/17/25 01:56 Senna/Docusate Sodium 1 Tablet PO BID PRN PRN Constipation Sodium Chloride 10 - 40 ml 04/17/25 02:20 04/17/25 05:23 0.9% Saline Lock 10 Ml Syringe IV 10 ml UD PRN Administration SALINE FLUSH Timolol Maleate 1 drp 04/17/25 10:00 04/17/25 10:23 Timolol 0.5% 5ml Opth.Btl OPHTHALMIC 1 drp BID SAHER Administration 04/18/25 1029 Cosigner Signature (if applicable): CC: Dr. Ken Whelan MD~ Signed [facility]08-12-2025 Progress note Author Sean Rizvi [facility] Note Date/Time April 18, 2025 3: 38pm [facility] Medical Records Department [address] [place] [id number] Progress Note - Hospitalist 04/18/25 1444 MR#: [id number] Acct: [id number] Name: GEOFFREY NASSAR Rep #:[id number] : 1935 89 From: Sean Flaherty PCP: Dr. Ken Whelan MD Status:A DM IN Location: [facility] [id number] Reason for Visit Chief Complaint: Fall, hit head, LOC. Objective Data Objective Data Vital Signs: Vital Signs Temp Pulse Resp BP Pulse Ox O2 Del Method O2 Flow Rate 97.8 F 65 17 103/68 96 Nasal Cannula 2 04/18/25 08:00 04/18/25 08:00 04/18/25 08:00 04/18/25 08:00 04/18/25 08:00 04/18/25 08:02 04/18/25 08:02 Oxygen Flow Rate (L/min) 2 Oxygen Delivery Method Nasal Cannula Weight: 147 lb 4.301 oz Body Mass Index (BMI) 26.9 Intake & Output: Intake and Output for Last 24 Hours 04/16/25 04/17/25 04/18/25 23:59 23:59 23:59 Intake Total 1740 / 1740 300 / 300 Output Total 1700 / 1700 420 / 420 Balance 40 / 40 -120 / -120 Lab / Micro Data 04/17/25 05:42 04/17/25 05:42 Radiography Diagnostic Testing: Radiology Impression Brain MRI 04/17/25 14:30 IMPRESSION: No acute brain abnormalities. Chronic changes which are nonspecific but most likely due to chronic small- vessel ischemia. Reading Location: [facility] Physical Exam Narrative Seen and examined Overall patient is doing well. Headache is less. She is more awake and alert. She had good sleep last night. Admitted with loss of consciousness with fall She had multiple times fall in the past but denies any LOC in the past. Physical exam General: Alert, Oriented x3, Cooperative HEENT: Atraumatic, PERRLA, EOMI, Normocephalic. Oral: No Gingival or Mucosal Lesions/ Ulcerations Neck: Supple, No JVD, Negative Carotid Bruits Chest wall/Lungs: Air entry diminished in bilateral lung bases. No crepitation/rhonchi Cardiovascular: Regular rate and rhythm, Normal S1,S2, No M/G/R Abdomen: Bowel Sounds Present, Soft, Non Tender, Non-Distended : No dysuria. No renal angle tenderness. No suprapubic tenderness. Extremities: No edema, Capillary Refill Less than 3 Seconds Skin: Staple on the back of the head. Musculoskeletal: No Tenderness to Palpation of Joints or Extremities Neurological: Cranial nerves II-XII grossly intact, DTR 2+/4. No acute focal neurological deficit. Psych/Mental Status: Normal Affect, Appropriate. Assessment & Plan Assessment/Plan (1) Frequent falls: PLAN: Plan The patient is an 89 y/o F admitted with unwitnessed mechanical fall on the day of ED presentation, fell forward with CT of the head with not recall of any event with some mild amnesia and loss of consciousness. Laceration at the back of the head generalized headache. Probably, she fell down after getting LOC. She denies any acute instability in lower extremity joints leading to fall. No chest pain pressure or tightness #1. Recurrent mechanical falls with adult failure to thrive with episode of head trauma with LOC with transient amnesia, currently resolved: Exact etiology of fall unclear but seems probably patient lost consciousness and then fell down. Denies acute instability in lower extremity joints. Unclear about the cause of LOC. Patient on baclofen 5 mg twice daily, lorazepam 2 mg nightly. This might be region of her LOC in the fall. She had 6 lázaro placed to the scalp and will need these removed in 1 week/7 days. 04/18: Patient had good sleep. She does not feel or look like confused. Not disoriented. Discussed with the neurologist. Wanted vitamin B12 folate B1. Agree with routine EEG. MRI brain shows no acute abnormalities. PT. Outpatient neurocognitive testing. Patient agreed for SNF. #2. Macrocytic anemia: Admission hemoglobin 10.5, MCV 99.4, baseline hemoglobinnoted to vacillate, more recently has been 11-12 however this was greater than 6months previous to current presentation, #3. Chronic Kidney Disease Stage III,: Admission BUN/Cr 35/1.40, GFR 36, baseline renal function more recently 1.3-1.4 with last noted 11/11/2024 creatinine 1.42, repeat BMP in AM. 04/18: Creatinine improved to 1.1, normal baseline. #4. Anxiety and depression: Will continue patient home paroxetine regimen. Patient is on a significant amount of lorazepam noted to be 2 mg nightly, given advanced age this may be significantly contributing to her fall risk. Given recent amnesic event will temporarily hold and may need to restart back at a lower dose and then wean off outpatient. #5. Hypertension: Continue home regimen including lisinopril, Lasix with hold parameters as needed although orthostatics are negative of note, PRN hydralazine. #6. Hyperlipidemia: Not on statin #7. OA, chronic pain: Patient is on significant mount as noted nightly Ativan specifically 2 mg in addition to being on baclofen 5 mg p.o. twice daily as a muscle relaxer and unfortunately these items are very sedated and likely contributing to her falls, will temporarily hold but may need to resume at a lower dose and weaned off outpatient. #8. Chronic asthma with allergic rhinitis: Continue ATC budesonide therapy, as needed albuterol, encourage head of bed and I-S, will continue patient home loratadine regimen. 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 #10. History SSS: Status post pacemaker placement, encourage continued follow-up and interrogation outpatient as previously arranged. #11. Former tobacco use: Encouraged continued tobacco cessation. #12. Hypothyroidism: continue patient on levothyroxine regimen. #13. GERD: New patient on PPI. #14. JADIEL: Patient does not use any PAP therapy, uses 2 L NC nightly. #15. DVT prophylaxis: Heparin. #16. CODE status: Patient HCPOA is her brother primary and secondary is her daughter and living will is currently in place. Discussed CODE status at length including difference between FULL code, DNR-CCA and DNR-CC status. Following discussions about the differences in these status, requested DNR CCA, clarified further with examples and patient determined with intubation. Charges/Coding Visit Charges Inpatient E&M: 53600 Subs Hosp L2 04/18/25 2941 <Electronically signed by Sean Rizvi MD> Cosigner Signature (if applicable): CC: ~ Signed [facility] Work Phone: 1(461) 958-444208-12-2025 Progress note [facility] Medical Records Department [address] [place] [address] Progress Note - Hospitalist 04/18/25 1444 MR#: [id number] Acct: [id number] Name: GEOFFREY NASSAR Rep #:[id number] : 1935 89 From: Sean Flaherty PCP: Dr. Ken Whelan MD Status:A DM IN Location: [place] [address] Reason for Visit Chief Complaint: Fall, hit head, LOC. Objective Data Objective Data Vital Signs: Vital Signs Temp Pulse Resp BP Pulse Ox O2 Del Method O2 Flow Rate 97.8 F 65 17 103/68 96 Nasal Cannula 2 04/18/25 08:00 04/18/25 08:00 04/18/25 08:00 04/18/25 08:00 04/18/25 08:00 04/18/25 08:02 04/18/25 08:02 Oxygen Flow Rate (L/min) 2 Oxygen Delivery Method Nasal Cannula Weight: 147 lb 4.301 oz Body Mass Index (BMI) 26.9 Intake & Output: Intake and Output for Last 24 Hours 04/16/25 04/17/25 04/18/25 23:59 23:59 23:59 Intake Total 1740 / 1740 300 / 300 Output Total 1700 / 1700 420 / 420 Balance 40 / 40 -120 / -120 Lab / Micro Data 04/17/25 05:42 04/17/25 05:42 Radiography Diagnostic Testing: Radiology Impression Brain MRI 04/17/25 14:30 IMPRESSION: No acute brain abnormalities. Chronic changes which are nonspecific but most likely due to chronic small- vessel ischemia. Reading Location: [facility] Physical Exam Narrative Seen and examined Overall patient is doing well. Headache is less. She is more awake and alert. She had good sleep last night. Admitted with loss of consciousness with fall She had multiple times fall in the past but denies any LOC in the past. Physical exam General: Alert, Oriented x3, Cooperative HEENT: Atraumatic, PERRLA, EOMI, Normocephalic. Oral: No Gingival or Mucosal Lesions/ Ulcerations Neck: Supple, No JVD, Negative Carotid Bruits Chest wall/Lungs: Air entry diminished in bilateral lung bases. No crepitation/rhonchi Cardiovascular: Regular rate and rhythm, Normal S1,S2, No M/G/R Abdomen: Bowel Sounds Present, Soft, Non Tender, Non-Distended : No dysuria. No renal angle tenderness. No suprapubic tenderness. Extremities: No edema, Capillary Refill Less than 3 Seconds Skin: Staple on the back of the head. Musculoskeletal: No Tenderness to Palpation of Joints or Extremities Neurological: Cranial nerves II-XII grossly intact, DTR 2+/4. No acute focal neurological deficit. Psych/Mental Status: Normal Affect, Appropriate. Assessment & Plan Assessment/Plan (1) Frequent falls: PLAN: Plan The patient is an 89 y/o F admitted with unwitnessed mechanical fall on the day of ED presentation,fell forward with CT of the head with not recall of any event with some mild amnesia and loss of consciousness. Laceration at the back of the head generalized headache. Probably, she fell down after getting LOC. She denies any acute instability in lower extremity joints leading to fall. No chest pain pressure or tightness #1. Recurrent mechanical falls with adult failure to thrive with episode of head trauma with LOC with transient amnesia, currently resolved: Exact etiology of fall unclear but seems probably patient lost consciousness and then fell down. Denies acute instability in lower extremity joints. Unclear about the cause of LOC. Patient on baclofen 5 mg twice daily, lorazepam 2 mg nightly. This might be region of her LOC in the fall. She had 6 lázaro placed to the scalp and will need these removed in 1 week/7 days. 04/18: Patient had good sleep. She does not feel or look like confused. Not disoriented. Discussed with the neurologist. Wanted vitamin B12 folate B1. Agree with routine EEG. MRI brain shows no acute abnormalities. PT. Outpatient neurocognitive testing. Patient agreed for SNF. #2. Macrocytic anemia: Admission hemoglobin 10.5, MCV 99.4, baseline hemoglobinnoted to vacillate, more recently has been 11-12 however this was greater than 6months previous to current presentation, #3. Chronic Kidney Disease Stage III,: Admission BUN/Cr 35/1.40, GFR 36, baseline renal function more recently 1.3-1.4 with last noted 11/11/2024 creatinine 1.42, repeat BMP in AM. 04/18: Creatinine improved to 1.1, normal baseline. #4. Anxiety and depression: Will continue patient home paroxetine regimen. Patient is on a significant amount of lorazepam noted to be 2 mg nightly, given advanced age this may be significantly contributing to her fall risk. Given recent amnesic event will temporarily hold and may need to restart back at a lower dose and then wean off outpatient. #5. Hypertension: Continue home regimen including lisinopril, Lasix with hold parameters as needed although orthostatics are negative of note, PRN hydralazine. #6. Hyperlipidemia: Not on statin #7. OA, chronic pain: Patient is on significant mount as noted nightly Ativan specifically 2 mg in addition to being on baclofen 5 mg p.o. twice daily as a muscle relaxer and unfortunately these items are very sedated and likely contributing to her falls, will temporarily hold but may need to resume at a lower dose and weaned off outpatient. #8. Chronic asthma with allergic rhinitis: Continue ATC budesonide therapy, as needed albuterol, encourage head of bed and I-S, will continue patient home loratadine regimen. 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 #10. History SSS: Status post pacemaker placement, encourage continued follow-up and interrogation outpatient as previously arranged. #11. Former tobacco use: Encouraged continued tobacco cessation. #12. Hypothyroidism: continue patient on levothyroxine regimen. #13. GERD: New patient on PPI. #14. JADIEL: Patient does not use any PAP therapy, uses 2 L NC nightly. #15. DVT prophylaxis: Heparin. #16. CODE status: Patient HCPOA is her brother primary and secondary is her daughter and living will is currently in place. Discussed CODE status at length including difference between FULL code, DNR-CCA and DNR-CC status. Following discussions about the differences in these status, requested DNR CCA, clarified further with examples and patient determined with intubation. Charges/Coding Visit Charges Inpatient E&M: 66905 Subs Hosp L2 04/18/25 1538 Cosigner Signature (if applicable): CC: ~ Signed [facility]08-11-2025 Progress note Author Sean Rizvi [facility] Note Date/Time April 17, 2025 2: 52pm [facility] Medical Records Department [address] [place] [address] Progress Note - Hospitalist 04/17/25 0908 MR#: [id number] Acct: [id number] Name: GEOFFREY NASSAR RAMACIEL Rep #:[id number] : 1935 89 From: Sean Flaherty PCP: Dr. Ken Whelan MD Status:A DM IN Location: [address] 1 Reason for Visit Chief Complaint: Fall, hit head, LOC. Objective Data Objective Data Vital Signs: Vital Signs Temp Pulse Resp BP Pulse Ox O2 Del Method 98.5 F 60 15 158/77 H 91 Room Air 04/17/25 02:07 04/17/25 07:03 04/17/25 07:03 04/17/25 02:07 04/17/25 07:03 04/17/25 07:03 Oxygen Delivery Method Room Air Weight: 161 lb 6.054 oz Body Mass Index (BMI) 29.5 Intake & Output: Intake and Output for Last 24 Hours 04/15/25 04/16/25 04/17/25 23:59 23:59 23:59 Output Total 500 / 500 Balance -500 / -500 Lab / Micro Data 04/17/25 05:42 04/17/25 05:42 Labs: Laboratory Results - last 24 hr 04/16/25 21:24: WBC 8.1, RBC 3.38 L, Hgb 10.5 L, Hct 33.6 L, MCV 99.4 H, MCH 31.1, MCHC 31.3 L, RDW Std Deviation 54.9 H, RDW Coeff of Dave 14.9 H, Plt Count 232, MPV 10.2, Immature Gran % (Auto) 0.900, Neut % (Auto) 62.5, Lymph % (Auto) 22.0, Gulf % (Auto) 11.1 H, Eos % (Auto) 2.9, Baso % (Auto) 0.6, Absolute Neuts (auto) 5.0, Absolute Lymphs (auto) 1.77, Nucleated RBC % 0, PT 13.4, INR 1.0, APTT 27.1, Sodium 141, Potassium 4.1, Chloride 107, Carbon Dioxide 23.9, Anion Gap 10, BUN 35 H, Creatinine 1.40 H, Estim Creat Clear Calc 25.67 L, Est GFR (MDRD) Non-Af 36 L, BUN/Creatinine Ratio 24.6 H, Glucose 103 H, Calcium 9.4, Magnesium 2.1, Urine Color Yellow, Urine Clarity Clear, Urine pH 6.5, Ur Specific [place] 1.010, Urine Protein Negative, Urine Glucose (UA) Normal, UrineKetones Negative, Urine Occult Blood Negative, Urine Nitrite Negative, Urine Bilirubin Negative, Urine Urobilinogen Normal, Ur Leukocyte Esterase Negative, Urine RBC 0-5 SEEN, Urine WBC 0-5 SEEN, Ur Squamous Epith Cells 0-5 SEEN, Urine Bacteria RARE, Urine Mucus 0 SEEN 04/17/25 05:42: WBC 9.6, RBC 3.39 L, Hgb 10.7 L, Hct 33.4 L, MCV 98.5, MCH 31.6,MCHC 32.0, RDW Std Deviation 54.0 H, RDW Coeff of Dave 14.8 H, Plt Count 245, MPV10.4, Immature Gran % (Auto) 0.500, Neut % (Auto) 61.0, Lymph % (Auto) 23.4, Gulf % (Auto) 11.3 H, Eos % (Auto) 3.2, Baso % (Auto) 0.6, Absolute Neuts (auto) 5.9, Absolute Lymphs (auto) 2.25, Nucleated RBC % 0, Sodium 138, Potassium 3.6, Chloride 105, Carbon Dioxide 22.7, Anion Gap 11, BUN 28 H, Creatinine 1.11, Estim Creat Clear Calc 32.82 L, Est GFR (MDRD) Non-Af 48 L, BUN/Creatinine Ratio 25.3 H, Glucose 90, Calcium 9.3, Total Bilirubin 0.47, AST 27, ALT 12, Alkaline Phosphatase 165 H, Total Protein 6.2, Albumin 3.2 L, Globulin 3.0, Albumin/Globulin Ratio 1.1, TSH 1.080 Radiography Diagnostic Testing: Radiology Impression Brain CT 04/16/25 21:01 IMPRESSION: 1. No intracranial hemorrhage. No mass effect or midline shift. 2. 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 Reading Location: [facility] Physical Exam Narrative Seen and examined She fell down after getting LOC. Sutures/lázaro on on it. She denies any acute instability in lower extremity joints leading to fall. No chest pain pressure or tightness She had multiple times fall in the past but denies any LOC in the past. Physical exam General: Alert, Oriented x3, Cooperative HEENT: Atraumatic, PERRLA, EOMI, Normocephalic. Oral: No Gingival or Mucosal Lesions/ Ulcerations Neck: Supple, No JVD, Negative Carotid Bruits Chest wall/Lungs: Air entry diminished in bilateral lung bases. No crepitation/rhonchi Cardiovascular: Regular rate and rhythm, Normal S1,S2, No M/G/R Abdomen: Bowel Sounds Present, Soft, Non Tender, Non-Distended : No dysuria. No renal angle tenderness. No suprapubic tenderness. Extremities: No edema, Capillary Refill Less than 3 Seconds Skin: Staple on the back of the head. Musculoskeletal: No Tenderness to Palpation of Joints or Extremities Neurological: Cranial nerves II-XII grossly intact, DTR 2+/4. No acute focal neurological deficit. Psych/Mental Status: Normal Affect, Appropriate. Assessment & Plan Assessment/Plan (1) Frequent falls: PLAN: Plan The patient is an 89 y/o F admitted with unwitnessed mechanical fall on the day of ED presentation, fell forward with CT of the head with not recall of any event with some mild amnesia and loss of consciousness. Laceration at the back of the head generalized headache. #1. Recurrent mechanical falls with adult failure to thrive with episode of head trauma with LOC with transient amnesia, currently resolved: Exact etiology of fall unclear but seems probably patient lost consciousness and then fell down. Denies acute instability in lower extremity joints. Unclear about the cause of LOC. Patient on baclofen 5 mg twice daily, lorazepam 2 mg nightly. This might be region of her LOC in the fall. She had 6 lázaro placed to the scalp and will need these removed in 1 week/7 days. #2. Macrocytic anemia: Admission hemoglobin 10.5, MCV 99.4, baseline hemoglobinnoted to vacillate, more recently has been 11-12 however this was greater than 6months previous to current presentation, will trend CBC. #3. Chronic Kidney Disease Stage III,: Admission BUN/Cr 35/1.40, GFR 36, baseline renal function more recently 1.3-1.4 with last noted 11/11/2024 creatinine 1.42, repeat BMP in AM. #4. Anxiety and depression: Will continue patient home paroxetine regimen. Patient is on a significant amount of lorazepam noted to be 2 mg nightly, given advanced age this may be significantly contributing to her fall risk. Given recent amnesic event will temporarily hold and may need to restart back at a lower dose and then wean off outpatient. #5. Hypertension: Continue home regimen including lisinopril, Lasix with hold parameters as needed although orthostatics are negative of note, PRN hydralazine. #6. Hyperlipidemia: Not on statin #7. OA, chronic pain: Patient is on significant mount as noted nightly Ativan specifically 2 mg in addition to being on baclofen 5 mg p.o. twice daily as a muscle relaxer and unfortunately these items are very sedated and likely contributing to her falls, will temporarily hold but may need to resume at a lower dose and weaned off outpatient. #8. Chronic asthma with allergic rhinitis: Continue ATC budesonide therapy, as needed albuterol, encourage head of bed and I-S, will continue patient home loratadine regimen. 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 #10. History SSS: Status post pacemaker placement, encourage continued follow-up and interrogation outpatient as previously arranged. #11. Former tobacco use: Encouraged continued tobacco cessation. #12. Hypothyroidism: continue patient on levothyroxine regimen. #13. GERD: New patient on PPI. #14. JADIEL: Patient does not use any PAP therapy, uses 2 L NC nightly. #15. DVT prophylaxis: Heparin. #16. CODE status: Patient HCPOA is her brother primary and secondary is her daughter and living will is currently in place. Discussed CODE status at length including difference between FULL code, DNR-CCA and DNR-CC status. Following discussions about the differences in these status, requested DNR CCA, clarified further with examples and patient determined with intubation. Charges/Coding Visit Charges Inpatient E&M: 94375 Subs Hosp L2 04/17/25 1452 <Electronically signed by Sean Rizvi MD> Cosigner Signature (if applicable): CC: ~ Signed [facility] Work Phone: 1(277) 361-177508-11-2025 Procedure [facility] [place], [place] [address] Pacemaker Check Date of Service: 04/17/251635 MR#: [id number] Acct: [id number] Name: GEOFFREY NASSAR Rep #: [id number] : 1935 From: Taylor amaral Age/Sex: 89/F [place] [facility] [place]: Signed Billing Codes MRI: 04824 Pacmeaker (PPM programming after MRI) Assessment and Plan Assessment and Plan (1) Presence of cardiac pacemaker: Status: Acute (2) Sick sinus syndrome: Status: Acute (3) Frequent falls: Status: Acute 04/17/251636 > Date _ Taylor Handley Signature: Date (if applicable) CC: ~ [facility]08-11-2025 Procedure [facility] [address] [place] [address] Pacemaker Check Date of Service: 04/17/25 162 MR#: [id number] Acct: [id number] Name: GEOFFREY NASSAR Rep #: [id number] : 1935 From: Taylor amaral Age/Sex: 89/F [place] [facility] [place] Status: Signed Billing Codes MRI: 76070 Pacmeaker (PPM programming prior to MRI) Assessment and Plan Assessment and Plan (1) Presence of cardiac pacemaker: Status: Acute (2) Sick sinus syndrome: Status: Acute (3) Frequent falls: Status: Acute 04/17/25 1636 > Date _ Taylor Yazmin Handley Signature: Date (if applicable) CC: ~ [facility]08-11-2025 Progress note [facility] Medical Records Department [address] [place] [address] Progress Note - Hospitalist 04/17/25 0908 MR#: [id number] Acct: [id number] Name: GEOFFREY NASSAR Rep #:[id number] : 1935 89 From: Sean Flaherty PCP: Dr. Ken Whelan MD Status:A DM IN Location: [place] [address] Reason for Visit Chief Complaint: Fall, hit head, LOC. Objective Data Objective Data Vital Signs: Vital Signs Temp Pulse Resp BP Pulse Ox O2 Del Method 98.5 F 60 15 158/77 H 91 Room Air 04/17/25 02:07 04/17/25 07:03 04/17/25 07:03 04/17/25 02:07 04/17/25 07:03 04/17/25 07:03 Oxygen Delivery Method Room Air Weight: 161 lb 6.054 oz Body Mass Index (BMI) 29.5 Intake & Output: Intake and Output for Last 24 Hours 04/15/25 04/16/25 04/17/25 23:59 23:59 23:59 Output Total 500 / 500 Balance -500 / -500 Lab / Micro Data 04/17/25 05:42 04/17/25 05:42 Labs: Laboratory Results - last 24 hr 04/16/25 21:24: WBC 8.1, RBC 3.38 L, Hgb 10.5 L, Hct 33.6 L, MCV 99.4 H, MCH 31.1, MCHC 31.3 L, RDWStd Deviation 54.9 H, RDW Coeff of Dave 14.9 H, Plt Count 232, MPV 10.2, Immature Gran % (Auto) 0.900, Neut % (Auto) 62.5, Lymph % (Auto) 22.0, Gulf % (Auto) 11.1 H, Eos % (Auto) 2.9, Baso % (Auto) 0.6, Absolute Neuts (auto) 5.0, Absolute Lymphs (auto) 1.77, Nucleated RBC % 0, PT 13.4, INR 1.0, APTT27.1, Sodium 141, Potassium 4.1, Chloride 107, Carbon Dioxide 23.9, Anion Gap 10, BUN 35 H, Creatinine 1.40 H, Estim Creat Clear Calc 25.67 L, Est GFR (MDRD) Non-Af 36 L, BUN/Creatinine Ratio 24.6 H,Glucose 103 H, Calcium 9.4, Magnesium 2.1, Urine Color Yellow, Urine Clarity Clear, Urine pH 6.5, Ur Specific [place] 1.010, Urine Protein Negative, Urine Glucose (UA) Normal, UrineKetones Negative, Urine Occult Blood Negative, Urine Nitrite Negative, Urine Bilirubin Negative, Urine Urobilinogen Normal, Ur Leukocyte Esterase Negative, Urine RBC 0-5 SEEN, Urine WBC 0-5 SEEN, Ur Squamous Epith Cells 0-5 SEEN, Urine Bacteria RARE, Urine Mucus 0 SEEN 04/17/25 05:42: WBC 9.6, RBC 3.39 L, Hgb 10.7 L, Hct 33.4 L, MCV 98.5, MCH 31.6,MCHC 32.0, RDW Std Deviation 54.0 H, RDW Coeff of Dave 14.8 H, Plt Count 245, MPV10.4, Immature Gran % (Auto) 0.500, Neut % (Auto) 61.0, Lymph % (Auto) 23.4, Gulf % (Auto) 11.3 H, Eos % (Auto) 3.2, Baso % (Auto) 0.6, Absolute Neuts (auto) 5.9, Absolute Lymphs (auto) 2.25, Nucleated RBC % 0, Sodium 138, Potassium 3.6, Chloride 105, Carbon Dioxide 22.7, Anion Gap 11, BUN 28 H, Creatinine 1.11, Estim Creat Clear Calc 32.82 L, Est GFR (MDRD) Non-Af 48 L, BUN/Creatinine Ratio 25.3 H, Glucose 90, Calcium 9.3, Total Bilirubin 0.47, AST 27, ALT 12, Alkaline Phosphatase 165 H, Total Protein 6.2, Albumin 3.2 L, Globulin 3.0, Albumin/Globulin Ratio 1.1, TSH 1.080 Radiography Diagnostic Testing: Radiology Impression Brain CT 04/16/25 21:01 IMPRESSION: 1. No intracranial hemorrhage. No mass effect or midline shift. 2. 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 Reading Location: [facility] Physical Exam Narrative Seen and examined She fell down after getting LOC. Sutures/lázaro on on it. She denies any acute instability in lower extremity joints leading to fall. No chest pain pressure or tightness She had multiple times fall in the past but denies any LOC in the past. Physical exam General: Alert, Oriented x3, Cooperative HEENT: Atraumatic, PERRLA, EOMI, Normocephalic. Oral: No Gingival or Mucosal Lesions/ Ulcerations Neck: Supple, No JVD, Negative Carotid Bruits Chest wall/Lungs: Air entry diminished in bilateral lung bases. No crepitation/rhonchi Cardiovascular: Regular rate and rhythm, Normal S1,S2, No M/G/R Abdomen: Bowel Sounds Present, Soft, Non Tender, Non-Distended : No dysuria. No renal angle tenderness. No suprapubic tenderness. Extremities: No edema, Capillary Refill Less than 3 Seconds Skin: Staple on the back of the head. Musculoskeletal: No Tenderness to Palpation of Joints or Extremities Neurological: Cranial nerves II-XII grossly intact, DTR 2+/4. No acute focal neurological deficit. Psych/Mental Status: Normal Affect, Appropriate. Assessment & Plan Assessment/Plan (1) Frequent falls: PLAN: Plan The patient is an 89 y/o F admitted with unwitnessed mechanical fall on the day of ED presentation,fell forward with CT of the head with not recall of any event with some mild amnesia and loss of consciousness. Laceration at the back of the head generalized headache. #1. Recurrent mechanical falls with adult failure to thrive with episode of head trauma with LOC with transient amnesia, currently resolved: Exact etiology of fall unclear but seems probably patient lost consciousness and then fell down. Denies acute instability in lower extremity joints. Unclear about the cause of LOC. Patient on baclofen 5 mg twice daily, lorazepam 2 mg nightly. This might be region of her LOC in the fall. She had 6 lázaro placed to the scalp and will need these removed in 1 week/7 days. #2. Macrocytic anemia: Admission hemoglobin 10.5, MCV 99.4, baseline hemoglobinnoted to vacillate, more recently has been 11-12 however this was greater than 6months previous to current presentation,will trend CBC. #3. Chronic Kidney Disease Stage III,: Admission BUN/Cr 35/1.40, GFR 36, baseline renal function more recently 1.3-1.4 with last noted 11/11/2024 creatinine 1.42, repeat BMP in AM. #4. Anxiety and depression: Will continue patient home paroxetine regimen. Patient is on a significant amount of lorazepam noted to be 2 mg nightly, given advanced age this may be significantly contributing to her fall risk. Given recent amnesic event will temporarily hold and may need to restart back at a lower dose and then wean off outpatient. #5. Hypertension: Continue home regimen including lisinopril, Lasix with hold parameters as needed although orthostatics are negative of note, PRN hydralazine. #6. Hyperlipidemia: Not on statin #7. OA, chronic pain: Patient is on significant mount as noted nightly Ativan specifically 2 mg in addition to being on baclofen 5 mg p.o. twice daily as a muscle relaxer and unfortunately these items are very sedated and likely contributing to her falls, will temporarily hold but may need to resume at a lower dose and weaned off outpatient. #8. Chronic asthma with allergic rhinitis: Continue ATC budesonide therapy, as needed albuterol, encourage head of bed and I-S, will continue patient home loratadine regimen. 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 #10. History SSS: Status post pacemaker placement, encourage continued follow-up and interrogation outpatient as previously arranged. #11. Former tobacco use: Encouraged continued tobacco cessation. #12. Hypothyroidism: continue patient on levothyroxine regimen. #13. GERD: New patient on PPI. #14. JADIEL: Patient does not use any PAP therapy, uses 2 L NC nightly. #15. DVT prophylaxis: Heparin. #16. CODE status: Patient HCPOA is her brother primary and secondary is her daughter and living will is currently in place. Discussed CODE status at length including difference between FULL code, DNR-CCA and DNR-CC status. Following discussions about the differences in these status, requested DNR CCA, clarified further with examples and patient determined with intubation. Charges/Coding Visit Charges Inpatient E&M: 68052 Subs Hosp L2 04/17/25 1455 Cosigner Signature (if applicable): CC: ~ Signed [facility]08-11-2025 Hospital Discharge instructionsAdditional Instructions She follows outside bingo caller Dr. Ortega. Advised to follow-up within a month. Need to lázaro out after 6 days of ED on 04/17 Date of Discharge: 04/20/25[facility] Work Phone: 1(773) 401-153108-11-2025 Discharge summary Author Lucho Murdock [facility] Note Date/Time April 17, 2025 2: 53am [facility] Medical Records Department [address] [address] Emergency Department Summary 04/16/25 MR#: [id number] Acct: [id number] Name: GEOFFREY NASSAR Rep #:[id number] : 1935 89 From: Lucho Mock PCP: Dr. Ken Whelan MD Status:A DM DOMENICA Location: [place] [address] HPI HPI - Fall History of Present Illness Chief Complaint: Fall Informant: patient Occured/Mechanism Occurred: Today Mechanism/Context: Yes same level fall and Yes cannot recall fall Pain/Injury Location: Occipital scalp Pain Location: head Quality of Pain: Aching Worsened by: Nothing Relieved by: Nothing Associated Symptoms Associated Symptoms: Positive for Loss of consciousness and Amnesia; Negative for Parasthesias or Weakness Length of loss of consciousness: Few seconds Narrative Narrative: Patient presents after a fall that occurred today. Patient states she bent overand fell forward. Patient hit the back of her head. Patient does not remember any of the events from the fall. Patient states that her head feels aching. Patient was unconscious for few seconds. Patient is unsure of her last tetanus. Patient denies any paresthesias. Patient denies any nausea or vomiting. Patient is to some pain in her neck and back. Patient states she has been falling more frequently over the past couple weeks. [facility] Medical History Presence of cardiac pacemaker (~05/29/21) [...] tablet 650 mg PO QHS pain 7 04/15/25 History baclofen 10 mg tablet 5 mg PO BID muscle relaxer 0 11/17/16 04/15/25 History cyanocobalamin (vitamin B-12) 1,000 mcg PO DAILY vitam in 11/17/16 04/15/25 History 1,000 mcg tablet multivitamin 1 tab PO DAILY vitamin 11/1704/15/25 History paroxetine HCl 10 mg tablet 40 mg PO DAILY mental heal th 11/17/16 04/15/25 History polyethylene glycol 3350 17 gram 17 gm PO PRN constipa tion 05/27/17 04/13/25 History oral powder packet aspirin 81 mg tablet,delayed 81 mg PO QHS heart health 11/27/17 04/15/25 History release lamotrigine 25 mg tablet,extended 25 mg PO DAILY 11/2704/15/25 History release 24 hr loratadine 10 mg tablet (Claritin) 10 mg PO PRN allerg ies 12/27/20 04/15/25 History albuterol sulfate 2.5 mg/3 mL 2.5 mg inhalation Q4H [place] N Sob &/Or 01/10/21 05/29/21 History (0.083 %) solution for nebulization Wheezing brimonidine 0.2 %-timolol 0.5 % 1 drp ophthalmic (eye) BID eye 01/10/21 04/15/25 History eye drops (Combigan) health ketotifen fumarate 0.025 % (0.035 1 drp ophthalmic (ey e) BID eye 01/10/21 Unknown History %) eye drops health latanoprost 0.005 % eye drops, 1 drp ophthalmic (eye) QPM eye 01/10/21 04/15/25 History emulsion health lorazepam 1 mg tablet 2 mg PO QHS anxiety 01/10/21 Unknown History pantoprazole 20 mg tablet,delayed 40 mg PO DAILY reflu x 01/10/21 04/15/25 History release vibegron 75 mg tablet (Gemtesa) 75 mg PO DAILY 1 04/15/25 History albuterol sulfate 90 mcg/actuation 1 - 2 puff inhalati on Q4H PRN PRN 02/11/22 04/15/25 Rx aerosol inhaler Shortness Of Breath #18 gram s ascorbic acid (vitamin C) 250 mg 250 mg PO BID 2 Unknown History tablet lactobacillus combination no.9 4 4,000 mmu cells PO DA BUTCH 08/19/22 04/15/25 History billion cell capsule (Adult 50 Plus Probiotic) ergocalciferol (vitamin D2) 1,250 50,000 unit PO QMONT H vitamin 09/10/22 Unknown History mcg (50,000 unit) capsule levothyroxine 88 mcg tablet 88 mcg PO .COMPLEX thyroid 07/01/24 04/14/25 History fluticasone furoate 100 1 inh inhalation DAILY #60 e a 08/22/24 04/15/25 Rx mcg-vilanterol 25 mcg/dose inhalation powder (Breo Ellipta) meloxicam 15 mg tablet 15 mg PO DAILY 09/21/2406/01 History lisinopril 20 mg tablet 20 mg PO DAILY blood pressur e #90 03/31/25 04/15/25 Rx tabs estradiol 0.01% (0.1 mg/gram) 1 g vaginal 3XW 3 months #42.5 04/14/25 04/10/25 Rx vaginal cream grams nitrofurantoin 100 mg PO BID #14 caps 04/1404/16/25 Rx monohydrate/macrocrystals 100 mg capsule (Macrobid) furosemide 20 mg tablet 10 mg PO QAM Diuretic 04/15/25 History Allergy/AdvReac Type Severity Reaction Status Date / Time ciprofloxacin (From Cipro) Allergy Itching Verified 04/17/25 02:22 diphenhydramine (From Allergy Rash Verified 04/17/25 02:22 Benadryl) Penicillins Allergy Hives Verified 04/17/25 02:22 shellfish derived Allergy Anaphylaxis Verified 04/17/25 02:22 Sulfa (Sulfonamide Allergy Upset Verified 04/17/25 02:22 Antibiotics) Stomach tiotropium (From Spiriva Allergy Other Verified 04/17/25 02:22 with HandiHaler) ketamine AdvReac hallucinati Verified 04/17/25 02:22 ons Family History Mother Breast cancer Colon cancer Father Cancer Lung Grandmother Breast cancer CVA (cerebral vascular accident) Surgical History History of tonsillectomy History of cholecystectomy History of bronchoscopy History of cataract extraction History of hysterectomy History of bladder suspension procedure Social History (Updated 04/17/25 @ 00:[address] Idalia Marti MD) household members: none Smoking Status: Former smoker Tobacco: How many years used: 10 second hand exposure: No alcohol intake: current details: occasional substance use type: does not use caffeine: Yes Type: coffee what type of physical activity do you participate in: other seatbelt use: always do you feel safe at home: Yes ROS ROS ED Constitutional Constitutional ED: Denies chills or fever(s) Eyes Eyes: Denies blurry vision or change in vision ENT ENT ED: Reports rhinorrhea; Denies sore throat Cardiovascular Cardiovascular: Reports chest pain; Denies palpitations Respiratory/Chest Respiratory/Chest: Denies cough or dyspnea Gastrointestinal Gastrointestinal: Denies nausea or vomiting Genitourinary Genitourinary ED: Denies dysuria or hematuria Musculoskeletal Musculoskeletal: Reports back pain and neck pain Integumentary Denies abscess or rash Neurologic Neurologic: Reports headache(s); Denies weakness Allergic/Immunologic Allergic/Immunologic ED: Denies mouth swelling or urticaria EXAM Physical Exam Const Vital Signs: 04/16/25 18:46 04/16/25 20:45 04/16/25 21:09 Temperature 97.6 F L Temperature Source Oral Pulse Rate 60 63 Pulse Rate [Lying] Pulse Rate [Sitting (for 1 minute prior to obtaining)] Pulse Rate [Standing (for 1 minute prior to obtaining)] Respiratory Rate 16 18 Respiratory Effort Normal Respiratory Depth Normal Respiratory Pattern Normal Blood Pressure 147/70 H 149/77 H Blood Pressure [Lying] Blood Pressure [Sitting (for 1 minute prior to obtaining)] Blood Pressure [Standing (for 1 minute prior to obtaining)] Blood Pressure Mean 95 101 Blood Pressure Mean [Lying] Blood Pressure Mean [Sitting (for 1 minute prior to obtaining)] Blood Pressure Mean [Standing (for 1 minute prior to obtaining)] Pulse Ox 95 93 Oxygen Delivery Method Room Air Room Air Room Air 04/16/25 22:00 04/16/25 23:26 04/17/25 00:00 Temperature Temperature Source Pulse Rate 61 60 Pulse Rate [Lying] 60 Pulse Rate [Sitting (for 1 minute prior to obtaining)] 62 Pulse Rate [Standing (for 1 minute prior to obtaining)] 78 Respiratory Rate 18 17 Respiratory Effort Respiratory Depth Respiratory Pattern Blood Pressure 147/72 H 161/77 H Blood Pressure [Lying] 142/70 H Blood Pressure [Sitting (for 1 minute prior to obtaining)] 142/77 H Blood Pressure [Standing (for 1 minute prior to obtaining)] 141/87 H Blood Pressure Mean 97 105 Blood Pressure Mean [Lying] 94 Blood Pressure Mean [Sitting (for 1 minute prior to obtaining)] 98 Blood Pressure Mean [Standing (for 1 minute prior to obtaining)] 105 Pulse Ox 100 95 Oxygen Delivery Method Room Air Room Air Positive well nourished and well developed General Appearance ED: well developed and NAD HEENT HEENT Narrative: There is a 3 cm full-thickness linear laceration over the occipital scalp. There is moderate gapping of the wound margins. There is no bony crepitance or step-off noted. There is no foreign body noted. There is mild bleeding noted. Neck full ROM and supple Resp normal respiratory effort and clear to auscultation bilaterally Cardio regular rate and regular rhythm GI non-tender and non-distended Palpation: soft Neuro oriented x3, CN's II-XII intact bilaterally, moves all extremities, no focal motor deficits and no sensory deficits noted Staci Coma Scale: document GCS findings Spontaneous Obeys Commands Oriented 15 Sensorium / Orientation: alert Motor Exam: general weakness Psych mental status grossly normal MDM MDM MDM Narrative Medical decision making narrative: Differential diagnosis includes intracranial bleeding, closed head injury, electrolyte abnormality, urinary tract infection, dehydration, hypovolemia, and coagulopathy. CT scan of the brain will be obtained to assess for intracranial bleeding and stroke. CBC will be obtained to assess for leukocytosis and anemia. Basic metabolic profile will be obtained to look for electrolyte abnormality and renal function. PT with INR and PTT will be obtained to assess for coagulopathy. Urinalysis will be obtained to assess for urinary tract infection. History & Record Review Additional record(s) reviewed:: Prior labs Lab Data Attestation: I reviewed the patient's lab results. Lab results narrative: CBC was reviewed. There is a mild anemia with a hemoglobin of 10.5 and hematocrit 33.6. The remainder is within normal limits. Basic metabolic profile was reviewed. BUN was slightly elevated at 35 and creatinine was 1.40. These are consistent with previous results. The remainder is within normal limits. PT with INR and PTT were reviewed and were within normal limits. Urinalysis was reviewed. There is no evidence of urinary tract infection or hematuria. Labs: Laboratory Results - last 24 hr 04/16/25 21:24 WBC 8.1 RBC 3.38 L Hgb 10.5 L Hct 33.6 L MCV 99.4 H MCH 31.1 MCHC 31.3 L RDW Std Deviation 54.9 H RDW Coeff of Dave 14.9 H Plt Count 232 MPV 10.2 Immature Gran % (Auto) 0.900 Neut % (Auto) 62.5 Lymph % (Auto) 22.0 Gulf % (Auto) 11.1 H Eos % (Auto) 2.9 Baso % (Auto) 0.6 Absolute Neuts (auto) 5.0 Absolute Lymphs (auto) 1.77 Nucleated RBC % 0 PT 13.4 INR 1.0 APTT 27.1 Sodium 141 Potassium 4.1 Chloride 107 Carbon Dioxide 23.9 Anion Gap 10 BUN 35 H Creatinine 1.40 H Estim Creat Clear Calc 25.67 L Est GFR (MDRD) Non-Af 36 L BUN/Creatinine Ratio 24.6 H Glucose 103 H Calcium 9.4 Magnesium 2.1 Urine Color Yellow Urine Clarity Clear Urine pH 6.5 Ur Specific [place] 1.010 Urine Protein Negative Urine Glucose (UA) Normal Urine Ketones Negative Urine Occult Blood Negative Urine Nitrite Negative Urine Bilirubin Negative Urine Urobilinogen Normal Ur Leukocyte Esterase Negative Urine RBC 0-5 SEEN Urine WBC 0-5 SEEN Ur Squamous Epith Cells 0-5 SEEN Urine Bacteria RARE Urine Mucus 0 SEEN Radiography Diagnostic Testing: Clinical Impression(s) from Imaging Studies Brain CT 04/16/25 21:01 IMPRESSION: 1. No intracranial hemorrhage. No mass effect or midline shift. 2. 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 Reading Location: [facility] CT scan of the brain was obtained. There is no acute intracranial abnormality. There are chronic changes noted. This was interpreted by the radiologist was also independently reviewed by myself. Management Discussion w/another healthcare provider: Hospitalist Treatment and Re-Evaluation Narrative: Orthostatic vital signs were obtained. Patient stated she felt unsteady and nauseated when she stood up. Otherwise, orthostatic vital signs were within normal limits. The wound was cleaned and irrigated with copious amounts of normal saline. The wound was anesthetized with 1% lidocaine with epinephrine. The wound was explored. There were no foreign bodies. The wound was closed with 6 lázaro. Patient tolerated procedure well. Patient and family were advised of the findings. Patient states she still feels somewhat unsteady. Because of this, I recommended admission to the hospital for observation. Patient and family are agreeable with this. I will discuss case with the hospitalist for admission. Patient and family understand and are agreeable withthe plan. All questions were answered. Procedures Lacerations Occipital scalp: Length: 3 cm Depth: Sub Q Shape: Linear Prep: Sterile Conditions and Chlorhexadine Laceration repair: Irrigated, Lidocaine with epi, Local and Wound explored Number of Sutures/[place]: 6 Suture Information: - (Lázaro) Discharge Plan Dx/Rx/DC Orders Clinical Impression: Closed head injury, Frequent falls, Laceration of occipital scalp, Essential hypertension Disposition Disposition: Acute Care Hospital [facility] Discharge Date/Time: 04/17/25 01:48 What to do if you have Problems For any increased pain, shortness of breath, bleeding, nausea or vomiting, chestpain, or any unexpected problems, contact your Primary Care Provider. Call [facility] ([phone]) or report to the closest Emergency Room. Call 911 if necessary. 04/17/25 0253 <Electronically signed by Lucho Murdock DO> Cosigner Signature (if applicable): CC: Dr. Ken Whelan MD ~ Signed [facility] Work Phone: [phone] 114-405408-11-2025 History and physical note Author Idalia Marti [facility] Note Date/Time April 17, 2025 1: 31am [facility] Medical Records Department [address] [place] [address] H&P Exam - Hospitalist 04/17/25 0045 MR#: [id number] Acct: [id number] Name: GEOFFREY NASSAR Rep #:[id number] : 1935 89 From: Idalia Marti MD PCP: Dr. Ken Whelan MD Status:A DM DOMENICA Location: [place] [address] HPI - General General Date of Admission: 04/17/25 Date of Service: 04/17/25 Chief Complaint: Fall, hit head, LOC. HPI Narrative The patient is an 89 y/o F w/ PMHx: Hx SSS s/p pacemaker status, GERD, HTN, HLD,Asthma, Hx VTE w/ submassive PE, Hypothyroidism, Former tobacco use, JADIEL, CKD stage III per GFR trending, Chronic anemia who presents to the [facility] ED on 04/17/2025 with history of mechanical fall occurring on day of presentation noted that she had been bending over and fell forward hitting the back of her head unfortunately not recalling any of the event with loss of consciousness and some mild amnesia associated with an aching generalized headache following prompting eventual ED evaluation. She does report that she believes she was unconscious only for seconds. She does report that she is beenfalling more frequently over the last several weeks. Patient reports mild headache still, generalized, rating it 2-3 out of 10 in severity with no light or sound sensitivity. Workup in the ED included T97.6, heart rate 60, BP 147/70, respiratory rate 16, 95% on room air with most recent repeat vitals heart rate 60, BP 161/77, respiratory rate 17, 95% on room air, orthostatics unremarkable, CBC with WBC 8.1, hemoglobin 10.5, MCV 99.4, platelet 232 without marked shift, unremarkable coags, BMP with BUN/canaille 35/1.40, GFR 36, [id number], urinalysis unremarkable, CT brain with no acute intracranial finding with chronic involutional and ischemic gliotic white matter changes noted previously. In the ED patient administered tetanus update. Family noted concerns of patientbeing able to safely return to home especially given her frequent falls. Patient in the ED did have irrigation of her head laceration with eventual closure with 6 lázaro. [facility] Medical History Presence of cardiac pacemaker (~05/29/21) [...] aspirin 81 mg tablet,delayed 81 mg PO QHS heart health 11/27/17 Unknown History release lamotrigine 25 mg tablet,extended 25 mg PO DAILY 11/27 Unknown History release 24 hr loratadine 10 mg tablet (Claritin) 10 mg PO DAILY therese rgies 12/27/20 Unknown History albuterol sulfate 2.5 mg/3 mL 2.5 mg inhalation Q4H [place] N Sob &/Or 01/10/21 05/29/21 History (0.083 [...] QPM eye 01/10/21 Unknown History emulsion health lorazepam 1 mg tablet [...] mcg PO .COMPLEX thyroid 07/01/24 Unknown History hydrocodone-acetaminophen 5-325mg 1 tab PO Q6H PRN PRN Pain 3 days 08/08/24 Unknown Rx 5mg-325mg #10 TABLETS fluticasone furoate 100 1 inh inhalation DAILY #60 e a 08/22/24 Unknown Rx mcg-vilanterol 25 mcg/dose inhalation powder (Breo Ellipta) meloxicam 15 mg tablet 15 mg PO DAILY 09/21/24 Unkn own History furosemide 20 mg tablet 20 mg PO QAM #90 tabs Unknown Rx lisinopril 20 mg tablet 20 mg PO DAILY blood pressur e #90 03/31/25 Unknown Rx tabs estradiol 0.01% (0.1 mg/gram) 1 g vaginal 3XW 3 months #42.5 04/14/25 Unknown Rx vaginal cream grams nitrofurantoin 100 mg PO BID #14 caps 04/14 Unknown Rx monohydrate/macrocrystals 100 mg capsule (Macrobid) Allergy/AdvReac Type Severity Reaction Status Date / Time ciprofloxacin (From Cipro) Allergy Itching Verified 04/16/25 18:52 diphenhydramine (From Allergy Rash Verified 04/16/25 18:52 Benadryl) Penicillins Allergy Hives Verified 04/16/25 18:52 shellfish derived Allergy Anaphylaxis Verified 04/16/25 18:52 Sulfa (Sulfonamide Allergy Upset Verified 04/16/25 18:52 Antibiotics) Stomach tiotropium (From Spiriva Allergy Other Verified 04/16/25 18:52 with HandiHaler) ketamine AdvReac hallucinati Verified 04/16/25 18:52 ons Family History Mother Breast cancer Colon cancer Father Cancer Lung Grandmother Breast cancer CVA (cerebral vascular accident) Surgical History History of tonsillectomy History of cholecystectomy History of bronchoscopy History of cataract extraction History of hysterectomy History of bladder suspension procedure Social History (Updated 04/17/25 @ 00:[address] Idalia Marti MD) household members: none Smoking Status: Former smoker Tobacco: How many years used: 10 second hand exposure: No alcohol intake: current details: occasional substance use type: does not use caffeine: Yes Type: coffee what type of physical activity do you participate in: other seatbelt use: always do you feel safe at home: Yes ROS ROS Narrative Admission Review of Systems: CONSTITUTIONAL: No weight loss, fever, chills, + weakness or fatigue. HEENT: + Mild headache, fall with head trauma with small laceration. Eyes: No visual loss, blurred vision, double vision or yellow sclerae. Ears, Nose, Throat: No hearing loss, sneezing, congestion, runny nose or sore throat. SKIN: No rash or itching, lesions, + occasional stage ecchymoses, abrasion, fallwith small head laceration. CARDIOVASCULAR: + Chronic distal edema. No chest pain, chest pressure or chest discomfort, palpitations, orthopnea, syncopal events. RESPIRATORY: No shortness of breath, cough or sputum, wheezing, hemoptysis. GASTROINTESTINAL: No anorexia, nausea, vomiting or diarrhea, abdominal pain, melena, BRBPR. GENITOURINARY: No dysuria, frequency, urgency or retention. NEUROLOGICAL: + Headache, frequent falls. No dizziness, syncope, paralysis, ataxia, numbness or tingling in the extremities, focal weakness, change in bowelor bladder control, seizure. MUSCULOSKELETAL: No muscle, back pain, joint pain or stiffness. HEMATOLOGIC: + Chronic anemia, easy bleeding/bruising. LYMPHATICS: No enlarged nodes. No history of splenectomy. PSYCHIATRIC: + History of anxiety and depression. ENDOCRINOLOGIC: No reports of sweating, cold or heat intolerance. No polyuria orpolydipsia. ALLERGIES: + History of asthma and allergic rhinitis, hives and anaphylaxis. Vital Signs Vital Signs Vital Signs: 04/16/25 18:46 04/16/25 20:45 04/16/25 21:09 Temperature 97.6 F L Temperature Source Oral Pulse Rate 60 63 Pulse Rate [Lying] Pulse Rate [Sitting (for 1 minute prior to obtaining)] Pulse Rate [Standing (for 1 minute prior to obtaining)] Respiratory Rate 16 18 Respiratory Effort Normal Respiratory Depth Normal Respiratory Pattern Normal Blood Pressure 147/70 H 149/77 H Blood Pressure [Lying] Blood Pressure [Sitting (for 1 minute prior to obtaining)] Blood Pressure [Standing (for 1 minute prior to obtaining)] Blood Pressure Mean 95 101 Blood Pressure Mean [Lying] Blood Pressure Mean [Sitting (for 1 minute prior to obtaining)] Blood Pressure Mean [Standing (for 1 minute prior to obtaining)] Pulse Ox 95 93 Oxygen Delivery Method Room Air Room Air Room Air 04/16/25 22:00 04/16/25 23:26 04/17/25 00:00 Temperature Temperature Source Pulse Rate 61 60 Pulse Rate [Lying] 60 Pulse Rate [Sitting (for 1 minute prior to obtaining)] 62 Pulse Rate [Standing (for 1 minute prior to obtaining)] 78 Respiratory Rate 18 17 Respiratory Effort Respiratory Depth Respiratory Pattern Blood Pressure 147/72 H 161/77 H Blood Pressure [Lying] 142/70 H Blood Pressure [Sitting (for 1 minute prior to obtaining)] 142/77 H Blood Pressure [Standing (for 1 minute prior to obtaining)] 141/87 H Blood Pressure Mean 97 105 Blood Pressure Mean [Lying] 94 Blood Pressure Mean [Sitting (for 1 minute prior to obtaining)] 98 Blood Pressure Mean [Standing (for 1 minute prior to obtaining)] 105 Pulse Ox 100 95 Oxygen Delivery Method Room Air Room Air Weight Weight: 156 lb 15.506 oz Body Mass Index (BMI) 28.7 Physical Exam Narrative Physical Examination: General: Awake, alert, oriented x [address], month, year, remains cooperative, seated upright in the ED bed, fatigued, notes still ongoing mild generalized headache but better. Skin: Normal color, normal turgor, no icterus, no cyanosis except for occasionalstage ecchymoses, abrasion, status post fall with head laceration status post irrigation and closure with 6 lázaro per ED, no active current bleeding. HEENT: Status post fall with head laceration status post irrigation and closure with 6 lázaro, no current bleeding/NC, EOMI, PERRLA, mildly dry MM, no carotid bruits or JVD noted. Lungs: Mildly diminished, greater bases, appropriate effort, no appreciated rales, ronchi or wheezing. Heart: Regular rate and rhythm; no gallop, rub audible. Abdomen: Soft, NTTP, ND, mildly hyperactive BS, no appreciated HSM. Extremities: No cyanosis, no clubbing, mild ankle to distal hayes 1-2+ pitting edema which is noted is chronic. Neurological: Patient awake, alert, oriented as noted, cognitive function intact; pupils equally reactive to light and accommodation, cranial nerves grossly normal, moving all 4 extremities, no focal deficits, strength moderatelyto severely globally decreased Psychiatric: Affect appears fatigued otherwise normal, no acute evidence of depressive or anxiety feelings but does have underlying history. Results Lab / Micro Data 04/16/25 21:24 04/16/25 21:24 Labs: Laboratory Results - last 24 hr 04/16/25 21:24: WBC 8.1, RBC 3.38 L, Hgb 10.5 L, Hct 33.6 L, MCV 99.4 H, MCH 31.1, MCHC 31.3 L, RDW Std Deviation 54.9 H, RDW Coeff of Dave 14.9 H, Plt Count 232, MPV 10.2, Immature Gran % (Auto) 0.900, Neut % (Auto) 62.5, Lymph % (Auto) 22.0, Gulf % (Auto) 11.1 H, Eos % (Auto) 2.9, Baso % (Auto) 0.6, Absolute Neuts (auto) 5.0, Absolute Lymphs (auto) 1.77, Nucleated RBC % 0, PT 13.4, INR 1.0, APTT 27.1, Sodium 141, Potassium 4.1, Chloride 107, Carbon Dioxide 23.9, Anion Gap 10, BUN 35 H, Creatinine 1.40 H, Estim Creat Clear Calc 25.67 L, Est GFR (MDRD) Non-Af 36 L, BUN/Creatinine Ratio 24.6 H, Glucose 103 H, Calcium 9.4, Urine Color Yellow, Urine Clarity Clear, Urine pH 6.5, Ur Specific [place] 1.010, Urine Protein Negative, Urine Glucose (UA) Normal, Urine Ketones Negative, Urine Occult Blood Negative, Urine Nitrite Negative, Urine Bilirubin Negative, Urine Urobilinogen Normal, Ur Leukocyte Esterase Negative, Urine RBC 0-5 SEEN, Urine WBC 0-5 SEEN, Ur Squamous Epith Cells 0-5 SEEN, Urine Bacteria RARE, Urine Mucus 0 SEEN Imaging Radiology Impression Brain CT 04/16/25 21:01 IMPRESSION: 1. No intracranial hemorrhage. No mass effect or midline shift. 2. 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 Reading Location: [facility] Assessment & Plan Assessment/Plan (1) Frequent falls: PLAN: Plan The patient is an 89 y/o F w/ PMHx: Hx SSS s/p pacemaker status, GERD, HTN, HLD,Asthma, Hx VTE w/ submassive PE, Hypothyroidism, Former tobacco use, JADIEL, CKD stage III per GFR trending, Chronic anemia who presents to the [facility] ED on 04/17/2025 with history of mechanical fall occurring on day of presentation noted that she had been bending over and fell forward hitting the back of her head unfortunately not recalling any of the event with loss of consciousness and some mild amnesia associated with an aching generalized headache following prompting eventual ED evaluation. #1. Recurrent mechanical falls with adult failure to thrive with episode of head trauma with LOC with transient amnesia, currently resolved: Given family concerns will admit patient to medical surgical floor, maintain on fall precautions, likely will need to alter patient medication regimen as she is on asignificant high dose of Ativan nightly which likely can contribute to her fall risk in addition to baclofen, both of which will be temporarily held this evening but may need to reconsider resuming at least at a lower dose to avoid withdrawal, PT/OT/case management consulted for discharge planning. Patient status post 6 lázaro placed to the scalp and will need these removed in 1 week/7 days. #2. Macrocytic anemia: Admission hemoglobin 10.5, MCV 99.4, baseline hemoglobinnoted to vacillate, more recently has been 11-12 however this was greater than 6months previous to current presentation, will trend CBC. #3. Chronic Kidney Disease Stage III, unclear subtype per GFR trending: Admission BUN/Cr 35/1.40, GFR 36, baseline renal function more recently 1.3-1.4 with last noted 11/11/2024 creatinine 1.42, repeat BMP in AM. #4. Anxiety and depression: Will continue patient home paroxetine regimen. Patient is on a significant amount of lorazepam noted to be 2 mg nightly, given advanced age this may be significantly contributing to her fall risk. Given recent amnesic event will temporarily hold and may need to restart back at a lower dose and then wean off outpatient. #5. Hypertension: Continue home regimen including lisinopril, Lasix with hold parameters as needed although orthostatics are negative of note, PRN hydralazine. #6. Hyperlipidemia: Per current list does not appear to be on regimen, defer tooutpatient. #7. OA, chronic pain: Patient is on significant mount as noted nightly Ativan specifically 2 mg in addition to being on baclofen 5 mg p.o. twice daily as a muscle relaxer and unfortunately these items are very sedated and likely contributing to her falls, will temporarily hold but may need to resume at a lower dose and weaned off outpatient. #8. Chronic asthma with allergic rhinitis: Will temporally hold home inhaler inthe interim placed on ATC budesonide therapy, as needed albuterol, encourage head of bed and I-S, will continue patient home loratadine regimen. 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 #10. History SSS: Status post pacemaker placement, encourage continued follow-up and interrogation outpatient as previously arranged. #11. Former tobacco use: Encouraged continued tobacco cessation. #12. Hypothyroidism: Will continue patient on levothyroxine regimen. #13. GERD: New patient on PPI. #14. JADIEL: Patient does not use any PAP therapy, uses 2 L NC nightly. #15. DVT prophylaxis: Heparin. #16. CODE status: Patient HCPOA is her brother primary and secondary is her daughter and living will is currently in place. Discussed CODE status at length including difference between FULL code, DNR-CCA and DNR-CC status. Following discussions about the differences in these status, requested DNR CCA, clarified further with examples and patient determined with intubation. Advanced Care Planning Face to Face Time: 16 minutes. Charges/Coding Visit Charges Inpatient E&M: 97281 Init Hosp L2 Procedures Hospitalists Procedures: 28891 Advncd Care Plan 30 Min 04/17/25 0131 <Electronically signed by Idalia Marti MD> Cosigner Signature (if applicable): CC: Dr. Idalia Marti MD; Dr. Ken Whelan MD~ Signed [facility] Work Phone: 1(380) 688-532508-11-2025 Discharge summary [facility] Medical Records Department [address] [place] [address] Emergency Department Summary 04/16/25 MR#: [id number] Acct: [id number] Name: GEOFFREY NASSAR Rep #:[id number] : 1935 89 From: Lucho Mock PCP: Dr. Ken Whelan MD Status:A DM DOMENICA Location: [place] [address] HPI HPI - Fall History of Present Illness Chief Complaint: Fall Informant: patient Occured/Mechanism Occurred: Today Mechanism/Context: Yes same level fall and Yes cannot recall fall Pain/Injury Location: Occipital scalp Pain Location: head Quality of Pain: Aching Worsened by: Nothing Relieved by: Nothing Associated Symptoms Associated Symptoms: Positive for Loss of consciousness and Amnesia; Negative for Parasthesias or Weakness Length of loss of consciousness: Few seconds Narrative Narrative: Patient presents after a fall that occurred today. Patient states she bent overand fell forward. Patient hit the back of her head. Patient does not remember any of the events from the fall. Patient states that her head feels aching. Patient was unconscious for few seconds. Patient is unsure of her last tetanus. Patient denies any paresthesias. Patient denies any nausea or vomiting. Patient is to some pain in her neck and back. Patient states she has been falling more frequently over the past couple weeks. [facility] Medical History Presence of cardiac pacemaker (~05/29/21) [...] tablet 650 mg PO QHS pain 7 04/15/25 History baclofen 10 mg tablet 5 mg PO BID muscle relaxer 0 11/17/16 04/15/25 History cyanocobalamin (vitamin B-12) 1,000 mcg PO DAILY vitam in 11/17/16 04/15/25 History 1,000 mcg tablet multivitamin 1 tab PO DAILY vitamin 11/1704/15/25 History paroxetine HCl 10 mg tablet 40 mg PO DAILY mental heal th 11/17/16 04/15/25 History polyethylene glycol 3350 17 gram 17 gm PO PRN constipa tion 05/27/17 04/13/25 History oral powder packet aspirin 81 mg tablet,delayed 81 mg PO QHS heart health 11/27/17 04/15/25 History release lamotrigine 25 mg tablet,extended 25 mg PO DAILY 11/2704/15/25 History release 24 hr loratadine 10 mg tablet (Claritin) 10 mg PO PRN allerg ies 12/27/20 04/15/25 History albuterol sulfate 2.5 mg/3 mL 2.5 mg inhalation Q4H [place] N Sob &/Or 01/10/21 05/29/21 History (0.083 %) solution for nebulization Wheezing brimonidine 0.2 %-timolol 0.5 % 1 drp ophthalmic (eye) BID eye 01/10/21 04/15/25 History eye drops (Combigan) health ketotifen fumarate 0.025 % (0.035 1 drp ophthalmic (ey e) BID eye 01/10/21 Unknown History %) eye drops health latanoprost 0.005 % eye drops, 1 drp ophthalmic (eye) QPM eye 01/10/21 04/15/25 History emulsion health lorazepam 1 mg tablet 2 mg PO QHS anxiety 01/10/21 Unknown History pantoprazole 20 mg tablet,delayed 40 mg PO DAILY reflu x 01/10/21 04/15/25 History release vibegron 75 mg tablet (Gemtesa) 75 mg PO DAILY 1 04/15/25 History albuterol sulfate 90 mcg/actuation 1 - 2 puff inhalati on Q4H PRN PRN 02/11/22 04/15/25 Rx aerosol inhaler Shortness Of Breath #18 gram s ascorbic acid (vitamin C) 250 mg 250 mg PO BID 2 Unknown History tablet lactobacillus combination no.9 4 4,000 mmu cells PO DA BUTCH 08/19/22 04/15/25 History billion cell capsule (Adult 50 Plus Probiotic) ergocalciferol (vitamin D2) 1,250 50,000 unit PO QMONT H vitamin 09/10/22 Unknown History mcg (50,000 unit) capsule levothyroxine 88 mcg tablet 88 mcg PO .COMPLEX thyroid 07/01/24 04/14/25 History fluticasone furoate 100 1 inh inhalation DAILY #60 e a 08/22/24 04/15/25 Rx mcg-vilanterol 25 mcg/dose inhalation powder (Breo Ellipta) meloxicam 15 mg tablet 15 mg PO DAILY 09/21/2406/01 History lisinopril 20 mg tablet 20 mg PO DAILY blood pressur e #90 03/31/25 04/15/25 Rx tabs estradiol 0.01% (0.1 mg/gram) 1 g vaginal 3XW 3 months #42.5 04/14/25 04/10/25 Rx vaginal cream grams nitrofurantoin 100 mg PO BID #14 caps 04/1404/16/25 Rx monohydrate/macrocrystals 100 mg capsule (Macrobid) furosemide 20 mg tablet 10 mg PO QAM Diuretic 04/15/25 History Allergy/AdvReac Type Severity Reaction Status Date / Time ciprofloxacin (From Cipro) Allergy Itching Verified 04/17/25 02:22 diphenhydramine (From Allergy Rash Verified 04/17/25 02:22 Benadryl) Penicillins Allergy Hives Verified 04/17/25 02:22 shellfish derived Allergy Anaphylaxis Verified 04/17/25 02:22 Sulfa (Sulfonamide Allergy Upset Verified 04/17/25 02:22 Antibiotics) Stomach tiotropium (From Spiriva Allergy Other Verified 04/17/25 02:22 with HandiHaler) ketamine AdvReac hallucinati Verified 04/17/25 02:22 ons Family History Mother Breast cancer Colon cancer Father Cancer Lung Grandmother Breast cancer CVA (cerebral vascular accident) Surgical History History of tonsillectomy History of cholecystectomy History of bronchoscopy History of cataract extraction History of hysterectomy History of bladder suspension procedure Social History (Updated 04/17/25 @ 00:[address] Idalia Marti MD) household members: none Smoking Status: Former smoker Tobacco: How many years used: 10 second hand exposure: No alcohol intake: current details: occasional substance use type: does not use caffeine: Yes Type: coffee what type of physical activity do you participate in: other seatbelt use: always do you feel safe at home: Yes ROS ROS ED Constitutional Constitutional ED: Denies chills or fever(s) Eyes Eyes: Denies blurry vision or change in vision ENT ENT ED: Reports rhinorrhea; Denies sore throat Cardiovascular Cardiovascular: Reports chest pain; Denies palpitations Respiratory/Chest Respiratory/Chest: Denies cough or dyspnea Gastrointestinal Gastrointestinal: Denies nausea or vomiting Genitourinary Genitourinary ED: Denies dysuria or hematuria Musculoskeletal Musculoskeletal: Reports back pain and neck pain Integumentary Denies abscess or rash Neurologic Neurologic: Reports headache(s); Denies weakness Allergic/Immunologic Allergic/Immunologic ED: Denies mouth swelling or urticaria EXAM Physical Exam Const Vital Signs: 04/16/25 18:46 04/16/25 20:45 04/16/25 21:09 Temperature 97.6 F L Temperature Source Oral Pulse Rate 60 63 Pulse Rate [Lying] Pulse Rate [Sitting (for 1 minute prior to obtaining)] Pulse Rate [Standing (for 1 minute prior to obtaining)] Respiratory Rate 16 18 Respiratory Effort Normal Respiratory Depth Normal Respiratory Pattern Normal Blood Pressure 147/70 H 149/77 H Blood Pressure [Lying] Blood Pressure [Sitting (for 1 minute prior to obtaining)] Blood Pressure [Standing (for 1 minute prior to obtaining)] Blood Pressure Mean 95 101 Blood Pressure Mean [Lying] Blood Pressure Mean [Sitting (for 1 minute prior to obtaining)] Blood Pressure Mean [Standing (for 1 minute prior to obtaining)] Pulse Ox 95 93 Oxygen Delivery Method Room Air Room Air Room Air 04/16/25 22:00 04/16/25 23:26 04/17/25 00:00 Temperature Temperature Source Pulse Rate 61 60 Pulse Rate [Lying] 60 Pulse Rate [Sitting (for 1 minute prior to obtaining)] 62 Pulse Rate [Standing (for 1 minute prior to obtaining)] 78 Respiratory Rate 18 17 Respiratory Effort Respiratory Depth Respiratory Pattern Blood Pressure 147/72 H 161/77 H Blood Pressure [Lying] 142/70 H Blood Pressure [Sitting (for 1 minute prior to obtaining)] 142/77 H Blood Pressure [Standing (for 1 minute prior to obtaining)] 141/87 H Blood Pressure Mean 97 105 Blood Pressure Mean [Lying] 94 Blood Pressure Mean [Sitting (for 1 minute prior to obtaining)] 98 Blood Pressure Mean [Standing (for 1 minute prior to obtaining)] 105 Pulse Ox 100 95 Oxygen Delivery Method Room Air Room Air Positive well nourished and well developed General Appearance ED: well developed and NAD HEENT HEENT Narrative: There is a 3 cm full-thickness linear laceration over the occipital scalp. There is moderate gapping of the wound margins. There is no bony crepitance or step- off noted. There is no foreign body noted. There is mild bleeding noted. Neck full ROM and supple Resp normal respiratory effort and clear to auscultation bilaterally Cardio regular rate and regular rhythm GI non-tender and non-distended Palpation: soft Neuro oriented x3, CN's II-XII intact bilaterally, moves all extremities, no focal motor deficits and no sensory deficits noted [place] Coma Scale: document GCS findings Spontaneous Obeys Commands Oriented 15 Sensorium / Orientation: alert Motor Exam: general weakness Psych mental status grossly normal MDM MDM MDM Narrative Medical decision making narrative: Differential diagnosis includes intracranial bleeding, closed head injury, electrolyte abnormality,urinary tract infection, dehydration, hypovolemia, and coagulopathy. CT scan of the brain will be obtained to assess for intracranial bleeding and stroke. CBC will be obtained to assess for leukocytosis and anemia. Basic metabolic profile will be obtained to look for electrolyte abnormality and renal function. PT with INR and PTT will be obtained to assess for coagulopathy. Urinalysis will be obtained to assess for urinary tract infection. History & Record Review Additional record(s) reviewed:: Prior labs Lab Data Attestation: I reviewed the patient's lab results. Lab results narrative: CBC was reviewed. There is a mild anemia with a hemoglobin of 10.5 and hematocrit 33.6. The remainder is within normal limits. Basic metabolic profile was reviewed. BUN was slightly elevated at 35 and creatinine was 1.40. These are consistent with previous results. The remainder is within normal limits. PT with INR and PTT were reviewed and were within normal limits. Urinalysis was reviewed. There is no evidence of urinary tract infection or hematuria. Labs: Laboratory Results - last 24 hr 04/16/25 21:24 WBC 8.1 RBC 3.38 L Hgb 10.5 L Hct 33.6 L MCV 99.4 H MCH 31.1 MCHC 31.3 L RDW Std Deviation 54.9 H RDW Coeff of Dave 14.9 H Plt Count 232 MPV 10.2 Immature Gran % (Auto) 0.900 Neut % (Auto) 62.5 Lymph % (Auto) 22.0 Gulf % (Auto) 11.1 H Eos % (Auto) 2.9 Baso % (Auto) 0.6 Absolute Neuts (auto) 5.0 Absolute Lymphs (auto) 1.77 Nucleated RBC % 0 PT 13.4 INR 1.0 APTT 27.1 Sodium 141 Potassium 4.1 Chloride 107 Carbon Dioxide 23.9 Anion Gap 10 BUN 35 H Creatinine 1.40 H Estim Creat Clear Calc 25.67 L Est GFR (MDRD) Non-Af 36 L BUN/Creatinine Ratio 24.6 H Glucose 103 H Calcium 9.4 Magnesium 2.1 Urine Color Yellow Urine Clarity Clear Urine pH 6.5 Ur Specific [place] 1.010 Urine Protein Negative Urine Glucose (UA) Normal Urine Ketones Negative Urine Occult Blood Negative Urine Nitrite Negative Urine Bilirubin Negative Urine Urobilinogen Normal Ur Leukocyte Esterase Negative Urine RBC 0-5 SEEN Urine WBC 0-5 SEEN Ur Squamous Epith Cells 0-5 SEEN Urine Bacteria RARE Urine Mucus 0 SEEN Radiography Diagnostic Testing: Clinical Impression(s) from Imaging Studies Brain CT 04/16/25 21:01 IMPRESSION: 1. No intracranial hemorrhage. No mass effect or midline shift. 2. 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 Reading Location: [facility] CT scan of the brain was obtained. There is no acute intracranial abnormality. There are chronic changes noted. This was interpreted by the radiologist was also independently reviewed by myself. Management Discussion w/another healthcare provider: Hospitalist Treatment and Re-Evaluation Narrative: Orthostatic vital signs were obtained. Patient stated she felt unsteady and nauseated when she stood up. Otherwise, orthostatic vital signs were within normal limits. The wound was cleaned and irrigated with copious amounts of normal saline. The wound was anesthetized with 1% lidocaine with epinephrine. The wound was explored. There were no foreign bodies. The wound was closed with 6 lázaro. Patient tolerated procedure well. Patient and family were advised of the findings. Patient states she still feels somewhat unsteady. Because of this, I recommended admission to the hospital for observation. Patient and family are agreeable with this. I will discuss case with the hospitalist for admission. Patient and family understand and are agreeable withthe plan. All questions were answered. Procedures Lacerations Occipital scalp: Length: 3 cm Depth: Sub Q Shape: Linear Prep: Sterile Conditions and Chlorhexadine Laceration repair: Irrigated, Lidocaine with epi, Local and Wound explored Number of Sutures/[place]: 6 Suture Information: - (Lázaro) Discharge Plan Dx/Rx/DC Orders Clinical Impression: Closed head injury, Frequent falls, Laceration of occipital scalp, Essential hypertension Disposition Disposition: Acute Care Hospital [facility] Discharge Date/Time: 04/17/25 01:48 What to do if you have Problems For any increased pain, shortness of breath, bleeding, nausea or vomiting, chestpain, or any unexpected problems, contact your Primary Care Provider. Call [facility] ([phone]) or report tothe closest Emergency Room. Call 911 if necessary. 04/17/25 0253 Cosigner Signature (if applicable): CC: Dr. Ken Whelan MD ~ Signed [facility]08-11-2025 History and physical note [facility] Medical Records Department [address] [place] [address] H&P Exam - Hospitalist 04/17/2544 MR#: [id number] Acct: [id number] Name: GEOFFREY NASSAR Rep #:[id number] : 1935 89 From: Idalia Marti MD PCP: Dr. Ken Whelan MD Status:A DM DOMENICA Location: [place] [address] HPI - General General Date of Admission: 04/17/25 Date of Service: 04/17/25 Chief Complaint: Fall, hit head, LOC. HPI Narrative The patient is an 89 y/o F w/ PMHx: Hx SSS s/p pacemaker status, GERD, HTN, HLD,Asthma, Hx VTE w/ submassive PE, Hypothyroidism, Former tobacco use, JADIEL, CKD stage III per GFR trending, Chronic anemia who presents to [facility] ED on 04/17/2025 with history of mechanical fall occurring on day of presentation noted that she had been bending over and fell forward hitting the back of her head unfortunately not recalling any of the event with loss of consciousness and some mild amnesia associated with an aching generalized headache following prompting eventual ED evaluation. Tanya report that she believes she was unconscious only for seconds. She does report that she is beenfalling more frequently over the last several weeks. Patient reports mild headache still, generalized, rating it 2-3 out of 10 in severity with no light or sound sensitivity. Workup in the ED included T97.6, heart rate 60, BP 147/70, respiratory rate 16, 95% on room air with most recent repeat vitals heart rate 60, BP 161/77, respiratory rate 17, 95% on room air, orthostatics unremarkable, CBC with WBC 8.1, hemoglobin 10.5, MCV 99.4, platelet 232 without marked shift, unremarkable coags, BMP with BUN/canaille 35/1.40, GFR 36, hffopab456, urinalysis unremarkable, CT brain with no acute intracranial finding with chronic involutional and ischemic gliotic white matter changes noted previously. In the ED patient administered tetanus update. Family noted concerns of patientbeing able to safely return to home especially given her frequent falls. Patient in the ED did have irrigation of her head laceration with eventual closure with 6 lázaro. [facility] Medical History Presence of cardiac pacemaker (~05/29/21) [...] aspirin 81 mg tablet,delayed 81 mg PO QHS heart health 11/27/17 Unknown History release lamotrigine 25 mg tablet,extended 25 mg PO DAILY 11/27 Unknown History release 24 hr loratadine 10 mg tablet (Claritin) 10 mg PO DAILY therese rgies 12/27/20 Unknown History albuterol sulfate 2.5 mg/3 mL 2.5 mg inhalation Q4H [place] N Sob &/Or 01/10/21 05/29/21 History (0.083 [...] QPM eye 01/10/21 Unknown History emulsion health lorazepam 1 mg tablet [...] mcg PO .COMPLEX thyroid 07/01/24 Unknown History hydrocodone-acetaminophen 5-325mg 1 tab PO Q6H PRN PRN Pain 3 days 08/08/24 Unknown Rx 5mg-325mg #10 TABLETS fluticasone furoate 100 1 inh inhalation DAILY #60 e a 08/22/24 Unknown Rx mcg-vilanterol 25 mcg/dose inhalation powder (Breo Ellipta) meloxicam 15 mg tablet 15 mg PO DAILY 09/21/24 Unkn own History furosemide 20 mg tablet 20 mg PO QAM #90 tabs Unknown Rx lisinopril 20 mg tablet 20 mg PO DAILY blood pressur e #90 03/31/25 Unknown Rx tabs estradiol 0.01% (0.1 mg/gram) 1 g vaginal 3XW 3 months #42.5 04/14/25 Unknown Rx vaginal cream grams nitrofurantoin 100 mg PO BID #14 caps 04/14 Unknown Rx monohydrate/macrocrystals 100 mg capsule (Macrobid) Allergy/AdvReac Type Severity Reaction Status Date / Time ciprofloxacin (From Cipro) Allergy Itching Verified 04/16/25 18:52 diphenhydramine (From Allergy Rash Verified 04/16/25 18:52 Benadryl) Penicillins Allergy Hives Verified 04/16/25 18:52 shellfish derived Allergy Anaphylaxis Verified 04/16/25 18:52 Sulfa (Sulfonamide Allergy Upset Verified 04/16/25 18:52 Antibiotics) Stomach tiotropium (From Spiriva Allergy Other Verified 04/16/25 18:52 with HandiHaler) ketamine AdvReac hallucinati Verified 04/16/25 18:52 ons Family History Mother Breast cancer Colon cancer Father Cancer Lung Grandmother Breast cancer CVA (cerebral vascular accident) Surgical History History of tonsillectomy History of cholecystectomy History of bronchoscopy History of cataract extraction History of hysterectomy History of bladder suspension procedure Social History (Updated 04/17/25 @ 00:[address] Idalia Marti MD) household members: none Smoking Status: Former smoker Tobacco: How many years used: 10 second hand exposure: No alcohol intake: current details: occasional substance use type: does not use caffeine: Yes Type: coffee what type of physical activity do you participate in: other seatbelt use: always do you feel safe at home: Yes ROS ROS Narrative Admission Review of Systems: CONSTITUTIONAL: No weight loss, fever, chills, + weakness or fatigue. HEENT: + Mild headache, fall with head trauma with small laceration. Eyes: No visual loss, blurred vision, double vision or yellow sclerae. Ears, Nose, Throat: No hearing loss, sneezing, congestion, runny nose or sore throat. SKIN: No rash or itching, lesions, + occasional stage ecchymoses, abrasion, fallwith small head laceration. CARDIOVASCULAR: + Chronic distal edema. No chest pain, chest pressure or chest discomfort, palpitations, orthopnea, syncopal events. RESPIRATORY: No shortness of breath, cough or sputum, wheezing, hemoptysis. GASTROINTESTINAL: No anorexia, nausea, vomiting or diarrhea, abdominal pain, melena, BRBPR. GENITOURINARY: No dysuria, frequency, urgency or retention. NEUROLOGICAL: + Headache, frequent falls. No dizziness, syncope, paralysis, ataxia, numbness or tingling in the extremities, focal weakness, change in bowelor bladder control, seizure. MUSCULOSKELETAL: No muscle, back pain, joint pain or stiffness. HEMATOLOGIC: + Chronic anemia, easy bleeding/bruising. LYMPHATICS: No enlarged nodes. No history of splenectomy. PSYCHIATRIC: + History of anxiety and depression. ENDOCRINOLOGIC: No reports of sweating, cold or heat intolerance. No polyuria orpolydipsia. ALLERGIES: + History of asthma and allergic rhinitis, hives and anaphylaxis. Vital Signs Vital Signs Vital Signs: 04/16/25 18:46 04/16/25 20:45 04/16/25 21:09 Temperature 97.6 F L Temperature Source Oral Pulse Rate 60 63 Pulse Rate [Lying] Pulse Rate [Sitting (for 1 minute prior to obtaining)] Pulse Rate [Standing (for 1 minute prior to obtaining)] Respiratory Rate 16 18 Respiratory Effort Normal Respiratory Depth Normal Respiratory Pattern Normal Blood Pressure 147/70 H 149/77 H Blood Pressure [Lying] Blood Pressure [Sitting (for 1 minute prior to obtaining)] Blood Pressure [Standing (for 1 minute prior to obtaining)] Blood Pressure Mean 95 101 Blood Pressure Mean [Lying] Blood Pressure Mean [Sitting (for 1 minute prior to obtaining)] Blood Pressure Mean [Standing (for 1 minute prior to obtaining)] Pulse Ox 95 93 Oxygen Delivery Method Room Air Room Air Room Air 04/16/25 22:00 04/16/25 23:26 04/17/25 00:00 Temperature Temperature Source Pulse Rate 61 60 Pulse Rate [Lying] 60 Pulse Rate [Sitting (for 1 minute prior to obtaining)] 62 Pulse Rate [Standing (for 1 minute prior to obtaining)] 78 Respiratory Rate 18 17 Respiratory Effort Respiratory Depth Respiratory Pattern Blood Pressure 147/72 H 161/77 H Blood Pressure [Lying] 142/70 H Blood Pressure [Sitting (for 1 minute prior to obtaining)] 142/77 H Blood Pressure [Standing (for 1 minute prior to obtaining)] 141/87 H Blood Pressure Mean 97 105 Blood Pressure Mean [Lying] 94 Blood Pressure Mean [Sitting (for 1 minute prior to obtaining)] 98 Blood Pressure Mean [Standing (for 1 minute prior to obtaining)] 105 Pulse Ox 100 95 Oxygen Delivery Method Room Air Room Air Weight Weight: 156 lb 15.506 oz Body Mass Index (BMI) 28.7 Physical Exam Narrative Physical Examination: General: Awake, alert, oriented x [address], month, year, remains cooperative, seated upright in the ED bed, fatigued, notes still ongoing mild generalized headache but better. Skin: Normal color, normal turgor, no icterus, no cyanosis except for occasionalstage ecchymoses, abrasion, status post fall with head laceration status post irrigation and closure with 6 lázaro perED, no active current bleeding. HEENT: Status post fall with head laceration status post irrigation and closure with 6 lázaro, no current bleeding/NC, EOMI, PERRLA, mildly dry MM, no carotid bruits or JVD noted. Lungs: Mildly diminished, greater bases, appropriate effort, no appreciated rales, ronchi or wheezing. Heart: Regular rate and rhythm; no gallop, rub audible. Abdomen: Soft, NTTP, ND, mildly hyperactive BS, no appreciated HSM. Extremities: No cyanosis, no clubbing, mild ankle to distal hayes 1-2+ pitting edema which is noted is chronic. Neurological: Patient awake, alert, oriented as noted, cognitive function intact; pupils equally reactive to light and accommodation, cranial nerves grossly normal, moving all 4 extremities, no focaldeficits, strength moderatelyto severely globally decreased Psychiatric: Affect appears fatigued otherwise normal, no acute evidence of depressive or anxiety feelings but does have underlying history. Results Lab / Micro Data 04/16/25 21:24 04/16/25 21:24 Labs: Laboratory Results - last 24 hr 04/16/25 21:24: WBC 8.1, RBC 3.38 L, Hgb 10.5 L, Hct 33.6 L, MCV 99.4 H, MCH 31.1, MCHC 31.3 L, RDWStd Deviation 54.9 H, RDW Coeff of Dave 14.9 H, Plt Count 232, MPV 10.2, Immature Gran % (Auto) 0.900, Neut % (Auto) 62.5, Lymph % (Auto) 22.0, Gulf % (Auto) 11.1 H, Eos % (Auto) 2.9, Baso % (Auto) 0.6, Absolute Neuts (auto) 5.0, Absolute Lymphs (auto) 1.77, Nucleated RBC % 0, PT 13.4, INR 1.0, APTT27.1, Sodium 141, Potassium 4.1, Chloride 107, Carbon Dioxide 23.9, Anion Gap 10, BUN 35 H, Creatinine 1.40 H, Estim Creat Clear Calc 25.67 L, Est GFR (MDRD) Non-Af 36 L, BUN/Creatinine Ratio 24.6 H,Glucose 103 H, Calcium 9.4, Urine Color Yellow, Urine Clarity Clear, Urine pH 6.5, Ur Specific [place] 1.010, Urine Protein Negative, Urine Glucose (UA) Normal, Urine Ketones Negative, Urine Occult Blood Negative, Urine Nitrite Negative, Urine Bilirubin Negative, Urine Urobilinogen Normal, Ur Leukocyte Esterase Negative, Urine RBC 0-5 SEEN, Urine WBC 0-5 SEEN, Ur Squamous Epith Cells 0-5 SEEN, Urine Bacteria RARE, Urine Mucus 0 SEEN Imaging Radiology Impression Brain CT 04/16/25 21:01 IMPRESSION: 1. No intracranial hemorrhage. No mass effect or midline shift. 2. 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 Reading Location: [facility] Assessment & Plan Assessment/Plan (1) Frequent falls: PLAN: Plan The patient is an 89 y/o F w/ PMHx: Hx SSS s/p pacemaker status, GERD, HTN, HLD,Asthma, Hx VTE w/ submassive PE, Hypothyroidism, Former tobacco use, JADIEL, CKD stage III per GFR trending, Chronic anemia who presents to the [facility] ED on 04/17/2025 with history of mechanical fall occurring on day of presentation noted that she had been bending over and fell forward hitting the back of her head unfortunately not recalling any of the event with loss of consciousness and some mild amnesia associated with an aching generalized headache following prompting eventual ED evaluation. #1. Recurrent mechanical falls with adult failure to thrive with episode of head trauma with LOC with transient amnesia, currently resolved: Given family concerns will admit patient to medical surgical floor, maintain on fall precautions, likely will need to alter patient medication regimen as she is on asignificant high dose of Ativan nightly which likely can contribute to her fall risk in addition to baclofen, both of which will be temporarily held this evening but may need to reconsider resuming at least at a lower dose to avoid withdrawal, PT/OT/case management consulted for discharge planning. Patient status post 6 lázaro placed to the scalp and will need these removed in 1 week/7 days. #2. Macrocytic anemia: Admission hemoglobin 10.5, MCV 99.4, baseline hemoglobinnoted to vacillate, more recently has been 11-12 however this was greater than 6months previous to current presentation,will trend CBC. #3. Chronic Kidney Disease Stage III, unclear subtype per GFR trending: Admission BUN/Cr 35/1.40, GFR 36, baseline renal function more recently 1.3-1.4 with last noted 11/11/2024 creatinine 1.42, repeat BMP in AM. #4. Anxiety and depression: Will continue patient home paroxetine regimen. Patient is on a significant amount of lorazepam noted to be 2 mg nightly, given advanced age this may be significantly contributing to her fall risk. Given recent amnesic event will temporarily hold and may need to restart back at a lower dose and then wean off outpatient. #5. Hypertension: Continue home regimen including lisinopril, Lasix with hold parameters as needed although orthostatics are negative of note, PRN hydralazine. #6. Hyperlipidemia: Per current list does not appear to be on regimen, defer tooutpatient. #7. OA, chronic pain: Patient is on significant mount as noted nightly Ativan specifically 2 mg in addition to being on baclofen 5 mg p.o. twice daily as a muscle relaxer and unfortunately these items are very sedated and likely contributing to her falls, will temporarily hold but may need to resume at a lower dose and weaned off outpatient. #8. Chronic asthma with allergic rhinitis: Will temporally hold home inhaler inthe interim placed on ATC budesonide therapy, as needed albuterol, encourage head of bed and I-S, will continue patient home loratadine regimen. 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 #10. History SSS: Status post pacemaker placement, encourage continued follow-up and interrogation outpatient as previously arranged. #11. Former tobacco use: Encouraged continued tobacco cessation. #12. Hypothyroidism: Will continue patient on levothyroxine regimen. #13. GERD: New patient on PPI. #14. JADIEL: Patient does not use any PAP therapy, uses 2 L NC nightly. #15. DVT prophylaxis: Heparin. #16. CODE status: Patient HCPOA is her brother primary and secondary is her daughter and living will is currently in place. Discussed CODE status at length including difference between FULL code, DNR-CCA and DNR-CC status. Following discussions about the differences in these status, requested DNR CCA, clarified further with examples and patient determined with intubation. Advanced Care Planning Face to Face Time: 16 minutes. Charges/Coding Visit Charges Inpatient E&M: 80328 Init Hosp L2 Procedures Hospitalists Procedures: 49980 Advncd Care Plan 30 Min 04/17/25 0131 Cosigner Signature (if applicable): CC: Dr. Idalia Marti MD; Dr. Ken Whelan MD~ Signed [facility]08-10-2025 Radiology Diagnostic study note [facility] Imaging Services [address] [place] [address] Brain/Head without Contrast MR#: [id number] Acct: [id number] Name: GEOFFREY NASSAR Rep #: [id number] : 1935 F 89 From: Yoan Marsh MD PCP: Dr. Ken Whelan MD Status: R EG ER Study:Brain/Head without Contrast Date of Exa m: 04/16/25 Exam# [id number] Ordering Dr: Lucho Murdock DO PROCEDURE: BRAIN/HEAD WITHOUT CONTRAST 04/16/2025 REASON FOR EXAM: HEAD INJURY TECHNIQUE: BRAIN/HEAD WITHOUT CONTRAST Coronal and Sagittal reconstruction series were provided. One or more dose reduction techniques were used (e.g., Automated exposure control, adjustment of the mA and/or kV according to patient size, use of iterative reconstruction technique. COMPARISON: CT head 02/15/2025 FINDINGS: There is no extra-axial or intra-axial intracranial hemorrhage. No mass effect or midline shift is seen. Generalized intracranial volume loss and findings compatible with chronic microvascular white matter ischemia. There is normal mcdonough-white matter differentiation. The posterior fossa is grossly unremarkable. The skull is unremarkable. Visualized paranasal sinuses are clear. The mastoid air cells show normal translucency. CT/Brain/Head without Contrast IMPRESSION: 1. No intracranial hemorrhage. No mass effect or midline shift. 2. 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 Reading Location: [facility] CC: Dr. Lucho Murdock DO; Dr. Ken Whelan MD ~ Water Conservationist: Signed [facility]08-05-2025 [facility] History of Present illness Narrative* Ashely Luevano MD - 04/07/2025 10:29 AM EDT Images from the original note were not included. . Respiratory Universal Note Patient name: Geoffrey Nassar PCP: Ken Whelan MD CC: Cough HPI: Geoffrey Nassar 89 year old female former remote smoker with PMH significant for asthma, depression, hypothyroidism, CAD, GERD, history of bilateral pulmonary emboli 2016, history of subarachnoidhemorrhage, PPM and bronchiectasis. At last office visit in October, she was reestablishing care af ter previously following with [facility] pulmonary but last seen in 2011. She [...] for supplemental oxygen and she was started on2 L. Repeat oximetry on 2 L reported [...] Currently no chest pain. She has had i ncreased cough starting approximately 3 weeks ago. She [...] Bronchiectasis without complication (HCC) 11/27/2009 Dr. Jaswant Luevano, pulmonary. DDD (degenerative disc disease), lumbar 02/16/2012 [...] diarrhea 09/23/2016 Non-STEMI (non-ST elevated myocardial infarction) ([facility]) 11/19/2016 setting of acute bilateral pulmonary embolism. Nonexudative age-related macular degeneration, bilateral, intermediate dry stage 05/01/2020 Optic cupping of both eyes 05/01/2020 Oral murray 10/29/2020 Pacemaker 07/25/2021 Pulmonary embolism with acute cor pulmonale ([facility]) 11/24/2016 She was initially thought to have a NSTEMI, but was found to be a PE with Right Strain and NOT a NSTEMI. Pulmonary nodule 01/08/2017 Punctate keratitis, bilateral 10/08/2021 SAH (subarachnoid hemorrhage) ([facility]) 10/03/2023 Subarachnoid hemorrhage ([facility]) 10/03/2023 Tubular adenoma of colon 12/29/2017 [...] Night oximetry testing showed adequate saturation on her2 L -Persistent fatigue does not appear to be related to hypoxemia. May be related to her age 5. Mild intermittent asthma, uncomplicated - Good clinical control with Breo Ellipta -Refilled prescription Ashely Luevano MD Respiratory Universal documented in this encounterDayton [facility] Center07-31-[facility]25 Telephone encounter Note * Telephone Encounter - Kailey Caraballo LPN - 04/06/2025 2:55 PM EDT Duplicate request. Kailey Caraballo LPN [facility]07-31-2025 Miscellaneous Notes* Telephone Encounter - Kailey Caraballo LPN - 04/06/2025 2:55 PM EDT Duplicate request. Kailey Caraballo LPN * Telephone Encounter - Neelam Casanova - 04/06/2025 2:40 PM EDT Prescription Refill Information The patient [...] 06, 2025 2:41 PM documented in this encounterDayton Va Medical Center07-31-2025 Telephone encounter Note * Telephone Encounter - Neelam Casanova - 04/06/2025 2:40 PM EDT Prescription Refill Information The patient [...] Neelam Noel April 06, 2025 2:41 PM [facility]07-31-2025 Telephone encounter Note* Telephone Encounter - Kailey Caraballo LPN - 04/06/2025 2:03 PM EDT Patient has been identified by [...] Please advise. Thank you. Kailey Caraballo LPN. [facility]07-31-2025 Miscellaneous Notes* Telephone Encounter - Kailey Caraballo LPN - 04/06/2025 2:03 PM EDT Patient has been identified by [...] you. Kailey Caraballo LPN. documented in this encounterDayton Va Medical Center07-31-2025 Telephone encounter Note * Telephone Encounter - Kailey Caraballo LPN - 04/06/2025 12:20 PM EDT Patient has been identified by [...] Please advise. Thank you. Kailey Caraballo LPN. [facility]07-31-2025 Miscellaneous Notes* Telephone Encounter - Kailey Caraballo LPN - 04/06/2025 12:20 PM EDT Patient has been identified by [...] you. Kailey Caraballo LPN. documented in this encounterDayton Va Medical Center07-25-2025 Evaluation note* Diagnosis Onset Date Resolution Status Admit Date Chronotropic incompetence with sinus node dysfunction acute March 31, 2025 1:26pm Essential hypertension acute Ju ly 2024 1:26pm Presence of cardiac pacemaker May, a cute March 31, 2025 1:26pm Closed head injury acute April 17, 2025 12:50am Essential hypertension acute Au laura 2024 12:50am Frequent falls acute April 12:50am Laceration of occipital scalp acute April 17, 2025 12:50am [facility] Work Phone: 1(606) 814-966307-25-2025 Evaluation note* Diagnosis Onset Date Resolution Status Admit Date Chronotropic incompetence with sinus node dysfunction acute March 31, 2025 1:26pm Essential hypertension acute Ju ly 2024 1:26pm Presence of cardiac pacemaker May, a cute March 31, 2025 1:26pm Closed head injury acute April 17, 2025 12:01pm Essential hypertension acute Au laura 2024 12:01pm Frequent falls acute April 12:01pm Laceration of occipital scalp acute April 17, 2025 12:01pm Frequent falls acute April 2:49pm Presence of cardiac pacemaker May, a cute April 17, 2025 2:49pm Sick sinus syndrome acute Augus t 2024 2:49pm [facility] Work Phone: 1(602) 252-136107-25-2025 [facility] [address] [place] [address] OFFICE VISIT Date of Service: 03/31/25 MR#: [id number] Acct: [id number] Name: GEOFFREY NASSAR Rep #: [id number] : 1935 Provider: POWER Messer Age/Sex: 89/F Location: [facility] Status: Signed HPI HPI History of Present Illness Details: This is an 89-year-old female who presents here today for a cardiovascular follow up visit. She hasa history of sinus bradycardia, chronotropic incompetence, sick [...] this she was evaluated by EP at [facility]. She underwent a PPM placement in 05/2021. [...] palpitations that she is aware of. She doesnot have any lightheadedness or dizziness. She does [...] 2.5 mg/3 mL 2.5 mg inhalation Q4H [place] N Sob &/Or 01/10/21 0 03/31/25 History [...] affect Supplemental Info Supplemental Information Echocardiogram 05/26/24 ([facility]) Conclusion The left ventricle is normal [...] the prior echocardiographic exam performed on 10/03/23.Previously reportedto have 1-2+ tricupsid regurgitation abd RVSP of 35mmHg. Echocardiogram 10/03/23 ([facility]) Impression The left ventricle is normal in size. Left ventricular systolic function is normal. EF=61 + 5%. Normal left ventricular diastolic function. The right ventricle is normal in size. Right ventricular systolic function is normal. Pacer is seenon the right side. Pharmacologic myocardial perfusion stress [...] with sinus node dysfunction. She has undergone F EP evaluation in the past, which led [...] of your patient. Please don't hesitate to callif any issues arise. This note was generated [...] Cardiac Ejection fraction %: 67 03/31/25 1349 Jose Eduardo STEVE> Date _ Latonya STEVE Cosigner Signature: Date (if applicable) CC: ~ [facility]07-25-2025 Progress note Author Latonya Vargas [facility] Note Date/Time March 31, 2025 1:49 pm [facility] [address] [place] [address] OFFICE VISIT Date of Service: 03/31/25 MR#: [id number] Acct: [id number] Name: GEOFFREY NASSAR Rep #: [id number] : 1935 Provider: POWER Messer Age/Sex: 89/F Location: [facility] Status: Signed HPI HPI History of Present Illness Details: This is an 89-year-old female who presents here today for a cardiovascular follow up visit. She has a history of sinus bradycardia, chronotropic incompetence, sick sinus syndrome, and permanent pacemaker placement superimposed upon a history of non- STEMI that was felt to be related to submassive pulmonary emboli approximately 3 years ago and hypertension. As you recall, she had a 14-day ambulatory monitor that demonstrated sinus rhythm with an average heart rate of 49 bpm, few PVCs, PACs, one episode of PSVT, junctional rhythm and idioventricular rhythm. Because of this she was evaluated by EP at [facility]. She underwent a PPM placement in 05/2021. [...] 2.5 mg/3 mL 2.5 mg inhalation Q4H [place] N Sob &/Or 01/10/21 0 03/31/25 History [...] affect Supplemental Info Supplemental Information Echocardiogram 05/26/24 ([facility]) Conclusion The left ventricle is normal [...] regurgitation abd RVSP of 35mmHg. Echocardiogram 10/03/23 ([facility]) Impression The left ventricle is normal [...] Cosigner Signature: Date (if applicable) CC: ~ [facility] Work Phone: 1(664) 290-972207-23-2025 Telephone encounter Note* Telephone Encounter - Kassidy Peña RN - 03/29/2025 11:14 AM EDT Patient calls and notified of results and providers instructions. Patient verbalizes understanding and will follow up with PCP if needed. Kassidy Peña RN [facility]07-23-2025 Miscellaneous Notes* Telephone Encounter - Kassidy Peña [...] LPN * Telephone Encounter - Jorge Jordan APRN.BERTHA - 03/28/2025 6:13 PM EDT Please call patient let her know that her chest x-ray was negative. Patient should do supportive therapies. If symptoms get worse not better please follow- up with primary care. documented in this encounterDayton Va Medical Center07-23-2025 Telephone encounter Note * Telephone Encounter - Barbara Pereira LPN - 03/29/2025 8:57 AM EDT Left message for patient to return call for results.Barbara Pereira LPN [facility]07-22-2025 Telephone encounter Note* Telephone Encounter - Jorge Jordan APRN.CNP - 03/28/2025 6:13 PM EDT Please call patient let her know that her chest x-ray was negative. Patient should do supportive therapies. If symptoms get worse not better please follow- up with primary care. [facility] Work Phone: 1(528) 308-781507-22-2025 [facility] History of Present illness Narrative* Jorge Jordan [...] care if symptoms worsen. and Recording using MadeiraMadeira software for draft documentation of the visit was discussed with the patient/authorized senior account representative; all questions welcomed and answered. Patient/authorized senior account representative agreed to proceed MDM Procedures documented in this encounterDayton Va Medical Center07-22-2025 History of Present illness Narrative* Zahra Palacios [...] PATIENT PRESENTS WITH AN IMPLANTABLE OR ATTACHED TIN PLATER: No RADIOLOGY DEPARTMENT: General X-ray: Exam(s) Completed: Chest X-Ray PERIPHERAL IV DATA: Not applicable SIGNED BY: RT Dameon(Barbie) March 28, 2025 5:04 PM documented in this encounterDayton Va Medical Center07-22-2025 NoteOhio[facility]07-22-2025 Telephone encounter Note* Telephone Encounter - José Miguel Choudhury RN - 03/28/2025 2:54 PM EDT [facility] reports she is with pt, and pt presents with fever 99.4, non productive loose cough, wheeze in posterior lobes, sweats day and night. BP 118/62 (60) 96% on RA. No s/s UTI. Offered appt in pcp office tomorrow. Pt declined, would like to be seen today. Pt agreeable to for evaluation. [facility]07-22-2025 Miscellaneous Notes* Telephone Encounter - José Miguel Choudhury RN - 03/28/2025 2:54 PM EDT [facility] reports she is with pt, and pt presents with fever 99.4, non productive loose cough, wheeze in posterior lobes, sweats day and night. BP 118/62 (60) 96% on RA. No s/s UTI. Offered appt in pcp office tomorrow. Pt declined, would like to be seen today. Pt agreeable to for evaluation. documented in this encounterDayton Va Medical Center07-17-2025 Instructions* Patient Instructions* Dian Rodas MD - 03/23/2025 1:58 PM EDT Based on your prior test results, penicillin were negative. You are at low risk for a severe, immediate allergic or anaphylactic reaction to penicillin and other penicillin-type antibiotics. Skin tests are unreliable for predicting delayed reactions. documented in this encounterDayton Va Medical Center07-17-2025 [facility]Ohio[facility]07-17-2025 History of Present illness Narrative* Pat Snow [...] This is a consultation requested by Ken Whelan MD for an allergy and immunology evaluation.My [...] of asthma for which she sees Dr. Luevano in pulmonary medicine. Uses Breo Ellipta 100-25 [...] Bronchiectasis without complication (HCC) 11/27/2009 Dr. Jaswant Luevano, pulmonary. DDD (degenerative disc disease), lumbar 02/16/2012 [...] diarrhea 09/23/2016 Non-STEMI (non-ST elevated myocardial infarction) ([facility]) 11/19/2016 setting of acute bilateral pulmonary embolism. Nonexudative age-related macular degeneration, bilateral, intermediate dry stage 05/01/2020 Optic cupping of both eyes 05/01/2020 Oral murray 10/29/2020 Pacemaker 07/25/2021 Pulmonary embolism with acute cor pulmonale ([facility]) 11/24/2016 She was initially thought to have a NSTEMI, but was found to be a PE with Right Strain and NOT a NSTEMI. Pulmonary nodule 01/08/2017 Punctate keratitis, bilateral 10/08/2021 SAH (subarachnoid hemorrhage) (HCC) 10/03/2023 Subarachnoid hemorrhage ([facility]) 10/03/2023 Tubular adenoma of colon 12/29/2017 [...] no. SOCIAL HISTORY: Employer And Job Title: [employer] (No job title specified) Years Of Education [...] Central air Basement: Dry basement, Carpeted Mario: [id number] carpeting Dust mite controls: Dust mite controls [...] No rashes or lesions. documented in this encounterDayton Va Medical Center07-17-2025 [facility]Ohio[facility]07-11-2025 Telephone encounter Note* Telephone Encounter - Kassidy Peña RN - 03/17/2025 2:37 PM EDT Esther with [facility] calls to report patient takes the [...] us a call back. Kassidy Peña RN [facility]07-11-2025 Miscellaneous Notes* Telephone Encounter - Kassidy Peña RN - 03/17/2025 2:37 PM EDT Esther with [facility] calls to report patient takes the [...] back. Kassidy Peña RN documented in this encounterDayton Va Medical Center06-30-2025 Telephone encounter Note * Telephone Encounter - [...] Please advise. Thank you. Ashely Kahn MA. [facility]06-30-2025 Miscellaneous Notes* Telephone Encounter - Ashely Kahn [...] you. Ashely Kahn MA. documented in this encounterDayton Va Medical Center06-26-2025 Instructions* Patient Instructions* Ken Whelan MD - 03/02/2025 12:20 PM EDT Therapy/Counseling [facility] [address] [place] [address] [address] [place] [address] [employer] [address] [facility] [address] [place] [address] [facility] [address] [address] [place] [address] [employer] [address] [address] [employer] [address] [facility] [place] [address] [facility] [address] [place] [address] documented in this encounterDayton Va Medical Center06-26-2025 NoteOhio[facility]06-26-2025 History of Present illness Narrative* Ken Whelan MD - 03/02/2025 11:46 AM EDT This note was created using [employer]. Subjective Patient presents with: 4 week follow-up Geoffrey Nassar is a 89 year old female. Recording using MadeiraMadeira software for draft documentation of the visit was discussed with the patient/authorized senior account representative; all questions welcomed and answered. Patient/authorized senior account representative agreed to proceed Depression: - Currently [...] started treatment. - Enjoys physical therapy at [facility] and plans to inquire about dry needling there. - Missed two weeks of physical therapy sessions recently. Dyspnea: - Relative stable. - Stress test I ordered at [facility] is scheduled next week. - Seeing [...] ICD10: M25.552 Chronic. - See PT at [facility]. Call for orders of dry needling if needed. 3. MARTINES (dyspnea on exertion) - ICD9: 786.09, ICD10: R06.09 - Stress test next week at [facility]. 4. Contusion of left side of back, [...] - Attend your physical therapy sessions at [facility] for bursitis treatment and dry needling; [...] counselors to help with your mood. Ken Whelan MD documented in this encounterDayton Va Medical Center06-11-2025 Discharge summary [facility] Medical Records Department [address] [place] [address] Emergency Department Summary 02/15/25 MR#: [id number] Acct: [id number] Name: GEOFFREY NASSAR Rep #:[id number] : 1935 89 From: Av Valencia MD PCP: Dr. Ken Whelan MD Status:R EG ER Location: ED HPI [...] Has history of asthma, hypothyroidism, non-ST elevation VA, GERD, and essential hypertension. She alsohas history [...] Prior similar symptoms: No [facility] Medical History Presence of cardiac pacemaker (~05/29/21) [...] 2.5 mg/3 mL 2.5 mg inhalation Q4H [place] N Sob &/Or 01/10/21 05/29/21 History (0.083 %) solution for nebulization Wheezing brimonidine 0.2 %-timolol 0.5 % 1 drp ophthalmic (eye) BID eye 01/10/21 Unknown History eye drops ([facility]) health ketotifen fumarate 0.025 % (0.035 1 [...] 15:26 IMPRESSION: NO ACUTE FINDINGS Reading Location: [id number] Cervical Spine CT 02/15/25 15:26 IMPRESSION: No acute cervical spine fracture. Spondylosis. Spondylolisthesis. Reading Location: [id number] Lumbar Spine X-Ray 02/15/25 16:40 IMPRESSION: No acute osseous abnormality. Spondylosis. Spondylolisthesis. Scoliosis. Reading Location: [id number] CT of the head without contrast and [...] Qty: 60 6RF Primary Care Provider: Ken Whelan Referrals: Ken Whelan MD [Primary Care Provider] - 1 Week [...] will make your pain worse. Print Language: Bermudian Disposition Disposition: Home, Self Care What to do if you have Problems For any increased pain, shortness of breath, bleeding, nausea or vomiting, chestpain, or any unexpected problems, contact your Primary Care Provider. Call [facility] ([phone]) or report tothe closest Emergency Room. Call 911 if necessary. 02/15/25 5829 Cosigner Signature (if applicable): CC: Dr. Ken Whelan MD ~ Signed [facility]06-11-2025 Radiology Diagnostic study note [facility] Imaging Services [address] [place], [place] [id number] Lumbar Spine 2 or 3 Views MR#: [id number] Acct: [id number] Name: GEOFFREY NASSAR Rep #: [id number] : 1935 F 89 From: Enrique De Leon MD PCP: Dr. Ken Whelan MD Status: R EG ER Study:Lumbar Spine 2 or 3 Views Date of Exam: 02/15/25 Exam# [id number] Ordering Dr: Jamshid Valencia MD PROCEDURE: LUMBAR [...] osseous abnormality. Spondylosis. Spondylolisthesis. Scoliosis. Reading Location: [place] [address] CC: Dr. Av Valencia MD; Dr. Ken Whelan MD ~ Water Conservationist: Signed [facility]06-11-2025 Radiology Diagnostic study note [facility] Imaging Services [address] [place], [place] [address] Spine Cervical without Contras MR#: [id number] Acct: [id number] Name: GEOFFREY NASSAR Rep #: [id number] : 1935 F 89 From: Enrique De Leon MD PCP: Dr. Ken Whelan MD Status: R EG ER Study:Spine Cervical without Contras Date of Exam: 02/15/25 Exam# [id number] Ordering Dr: Jamshid Valencia MD PROCEDURE: SPINE [...] cervical spine fracture. Spondylosis. Spondylolisthesis. Reading Location: [id number] CC: Dr. Av Valencia MD; Dr. Ken Whelan MD ~ Water Conservationist: Signed [facility]06-11-2025 Radiology Diagnostic study note [facility] Imaging Services [address] [place] [address] Brain/Head without Contrast MR#: [id number] Acct: [id number] Name: GEOFFREY NASSAR Rep #: [id number] : 1935 F 89 From: Enrique De Leon MD PCP: Dr. Ken Whelan MD Status: R ER Study:Brain/Head without Contrast Date of Exa m: 02/15/25 Exam# [id number] Ordering Dr: Jamshid Valencia MD PROCEDURE: BRAIN/HEAD [...] Contrast IMPRESSION: NO ACUTE FINDINGS Reading Location: [id number] CC: Dr. Av Valencia MD; Dr. Ken Whelan MD ~ Water Conservationist: Signed [facility]06-11-2025 Discharge summary Author Av Valencia [facility] Note Date/Time February 15, 2025 5:37 pm [facility] Medical Records Department [address] [place] [address] Emergency Department Summary 02/15/25 MR#: [id number] Acct: [id number] Name: GEOFFREY NASSAR Rep #:[id number] : 1935 89 From: Av Valencia MD PCP: Dr. Ken Whelan MD Status:R EG ER Location: ED HPI [...] Has history of asthma, hypothyroidism, non-ST elevation VA, GERD, and essential hypertension. She alsohas history [...] Prior similar symptoms: No Recent [facility] Medical History Presence of cardiac pacemaker (~05/29/21) [...] 2.5 mg/3 mL 2.5 mg inhalation Q4H [place] N Sob &/Or 01/10/21 05/29/21 History (0.083 [...] 15:26 IMPRESSION: NO ACUTE FINDINGS Reading Location: [id number] Cervical Sp[address] CT 02/15/25 15:26 IMPRESSION: No acute cervical spine fracture. Spondylosis. Spondylolisthesis. Reading Location: [id number] Lumbar Spine X-Ray 02/15/25 16:40 IMPRESSION: No acute osseous abnormality. Spondylosis. Spondylolisthesis. Scoliosis. Reading Location: [id number] CT of the head without contrast and [...] Qty: 60 6RF Primary Care Provider: Ken Whelan Referrals: Ken Whelan MD [Primary Care Provider] - 1 Week [...] will make your pain worse. Print Language: Bermudian Disposition Disposition: Home, Self Care What to do if you have Problems For any increased pain, shortness of breath, bleeding, nausea or vomiting, chestpain, or any unexpected problems, contact your Primary Care Provider. Call [facility] ([phone]) or report to the closest Emergency Room. Call 911 if necessary. 02/15/256 <Electronically signed by Av Valencia MD> Cosigner Signature (if applicable): CC: Dr. Ken Whelan MD ~ Signed [facility] Work Phone: 1(553) 423-208506-11-2025 Telephone encounter Note* Telephone Encounter - Kassidy Peña RN - 02/15/2025 11:49 AM EDT Esther with [facility] calls with patient to report [...] Initial Assessment Questions 1. MECHANISM: Esther with [facility] is currently visiting patient and [...] No neck pain, vomiting) Protocols used: Head Sddstx-OHPYK-LF [facility]06-11-2025 Miscellaneous Notes* Telephone Encounter - Kassidy Peña RN - 02/15/2025 11:49 AM EDT Esther with [facility] calls with patient to report [...] Initial Assessment Questions 1. MECHANISM: Esther with [facility] is currently visiting patient and [...] No neck pain, vomiting) Protocols used: Head [id number]-[id number]-VR documented in this encounterDayton Va Medical Center06-11-2025 Hospital Discharge instructions Additional Instructions 1. Expect to feel worse over the next 24 to 48 hours. 2. Do not be surprised if you have heard in more places than you presently do over the next day or 2 3. You will hurt for 3 to 7 days 4. Apply ice to areas of discomfort. Application heat will make your pain worse. [facility] Work Phone: 1(197) 450-815306-02-2025 Telephone encounter Note* Telephone Encounter - Adelaida Almendarez LPN - 02/06/2025 10:17 AM EDT [facility] Scheduling dept calling asking for another copy of the Nuclear stress test order to be faxed [phone]. She said need part where electronically signed it had been cut off. Printed order andfaxed as requested again. [facility]06-02-2025 Miscellaneous Notes* Telephone Encounter - Adelaida Almendarez LPN - 02/06/2025 10:17 AM EDT [facility] Scheduling dept calling asking for another copy of the Nuclear stress test order to be faxed [phone]. She said need part where electronically signed it had been cut off. Printed order andfaxed as requested again. documented in this encounterDayton Va Medical Center05-30-2025 Telephone encounter Note * Telephone Encounter - Yessenia Perez LPN - 02/03/2025 11:25 AM EDT Patient is approved, no auth required. For stress test at [facility]. Faxed to [facility] to arranged. [facility]05-30-2025 Miscellaneous Notes* Telephone Encounter - Yessenia Perez LPN - 02/03/2025 11:25 AM EDT Patient is approved, no auth required. For stress test at [facility]. Faxed to [facility] to arranged. * Telephone Encounter - Yessenia Perez LPN - 02/03/2025 9:38 AM EDT 1.Faxed order to [facility] for dry needing. 2.Referral/precert for the stress test entered. Pending review. documented in this encounterDayton Va Medical Center05-30-2025 Telephone encounter Note * Telephone Encounter - Luz Harden RN - 02/03/2025 11:01 AM EDT Esther nurse with [facility] calling in stating they work with pt. (see 08/12/24 note). She is requesting pt's OV note with Dr. Whelan from yesterday and the one from Dr. Mars from 01/25. Esther made aware of problems with outgoing calls and faxes and will make sure fax goes through but may not be til next week. Fax # is [phone]. [facility]05-30-2025 Miscellaneous Notes* Telephone Encounter - Luz Harden RN - 02/03/2025 11:01 AM EDT Esther nurse with [facility] calling in stating they work with pt. (see 08/12/24 note). She is requesting pt's OV note with Dr. Whelan from yesterday and the one from Dr. Mars from 01/25. Esther made aware of problems with outgoing calls and faxes and will make sure fax goes through but may not be til next week. Fax # is [phone]. documented in this encounterDayton [facility] Center05-30-2025 Telephone encounter Note * Telephone Encounter - Yessenia Perez LPN - 02/03/2025 9:38 AM EDT 1.Faxed order to [facility] for dry needing. 2.Referral/precert for the stress test entered. Pending review. [facility]05-29-2025 Instructions* Patient Instructions* Ken Whelan MD - 02/02/2025 4:30 PM EDT - [...] to schedule the test. documented in this encounterDayton Va Medical Center05-29-2025 NoteOhio[facility] Dublin [facility] Hospital05-29-2025 History of Present illness Narrative* Ken Whelan MD - 02/02/2025 3:59 PM EDT This note was created using [employer]. Subjective Patient presents with: Depression Hip Pain Shortness of Breath Geoffrey Nassar is a 89 year old female. Recording using MadeiraMadeira software for draft documentationof the visit was discussed with the patient/authorized senior account representative; all questions welcomed and answered. Patient/authorized senior account representative agreed to proceed Depression: - Started Wellbutrin 4 weeks ago; experiencing dry mouth, left-sided throat discomfort, and dysphagia. - Symptoms improved, but dry mouth persists; using Biotene mouthwash for relief. - No improvement in energy levels or mood; ongoing fatigue. Left Hip Pain: - Received Kenalog and lidocaine injection from Dr. Mars; relief lasted about a month. - Informed by CLEANER that another injection cannot be administered for [...] Unspecified Whether Stage 3a Or 3b Ckd ([facility]) Physical Debility Oxygen Desaturation Social History [...] R06.09 Progressing. Pharmacologic stress test order for [facility]. [facility] - CONSULT TO NON-[facility] FACILITY Ken Whelan MD documented in this encounterDayton Va Medical Center05-21-2025 NoteOhio[facility] Dublin [facility] Hospital05-21-2025 NoteOhio[facility]05-07-2025 NoteOhio[facility]05-07-2025 History of Present illness Narrative* Ailyn Bonner, MANAGER PLAN.CHRISTMAS BELL RINGER - 01/11/2025 3:41 PM EDT IMPRESSION: Geoffrey [...] jaundice UE SAB EF EE WE WF Contact Lens Flashing Puncher R 5/5 5/5 5/5 5/5 5/5 5/5 [...] which included preparing to see the patient, sppc-ku-gvbm patient care, completing clinical documentation, performing a medically appropriate examination, counseling and educating the patient/family/caregiver, ordering medications, tests, or p rocedures and communicating results to the patient/family/caregiver. LAW Kebede.CHRISTMAS BELL RINGER [facility] documented in this encounterDayton Va Medical Center05-02-2025 NoteOhiohealth Dublin [facility] Hospital05-02-2025 History of Present illness Narrative* Najma John [...] 06, 2025 1:01 PM documented in this encounterDayton Va Medical Center05-01-2025 NoteOhio[facility]05-01-2025 History of Present illness Narrative* Ken Whelan MD - 01/05/2025 4:41 PM EDT This note was created using RxAdvanceriter. Subjective Geoffrey Nassar is a 89 year [...] walk test here, she had to rest alf with no desaturation. Review of Systems Constitutional: [...] progressive. - I recommend she see her divisional human resources director sooner for consideration of stress testing. Ken Whelan MD * Ken Whelan MD - 01/05/2025 3:51 PM EDT Images [...] Current care team: Patient Care Team: Ken Whelan MD as PCP - General (Internal Medicine) Dia Nixon APRN.CHRISTMAS BELL RINGER as Patient Support Partner (Internal Medicine) Ashely Luevano MD (Pulmonary) Cami Mars MD (Geriatrics) Ruben Butler PA-C (Orthopedics) Outside specialists seen: Cardiology- Dr. Zane Mcpherson. Uro-gynecology- Dr. Christi Hansen. Application Trainer-Dr. Guzman Jolly. High Lead Yarder-Dr. Neil Hawthorne. Optometry- Dr. Janett Varela, [facility]- Dr. Jann Mello DME supplier: [employer], [employer], [place]. Medical/Family history review Reviewed and updated problem [...] 20/50 Assessment/Plan Medicare annual wellness visit, subsequent (00.) - Counseled on healthy diet and regular exercise - Fall avoidance information provided - Personalized prevention plan provided documented in this encounterDayton Va Medical Center05-01-2025 Instructions* Patient Instructions* Ken Whelan MD - 01/05/2025 4:38 PM EDT SCHEDULE [...] review all the medicines you take, even bwec-tvl-mlxbznq medicines. As you get older, the way [...] have certain medical conditions. documented in this encounterDayton Va Medical Center05-01-2025 NoteOhio[facility] Dublin [facility]04-17-2025 NoteOhio[facility]04-17-2025 History of Present illness Narrative* Najma John [...] 22, 2024 12:39 PM documented in this encounterDayton Va Medical Center04-17-2025 Evaluation note* Diagnosis Stage 3 chronic kidney disease, unspecified whether stage 3a or 3b CKD (HCC)- Primary documented in this encounter [facility]04-14-2025 Telephone encounter Note* Telephone Encounter - Norma Wong RN - 12/19/2024 10:49 AM EDT Esther calling with [facility] requesting patient's recent OV note with Dr. Mars be faxed to her at FAX #: [phone] for continuity of care. Faxed as requested. Norma Wong RN [facility]04-14-2025 Miscellaneous Notes* Telephone Encounter - Norma Wong RN - 12/19/2024 10:49 AM EDT Esther calling with [facility] requesting patient's recent OV note with Dr. Mars be faxed to her at FAX #: [phone] for continuity of care. Faxed as requested. 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 She states [...] both eyes 10/08/2021 Asthmatic bronchitis , chronic ([facility]) 01/30/2023 Bradycardia 01/18/2021 Bronchiectasis without complication ([facility]) 11/27/2009 Dr. Jaswant Luevano, pulmonary. DDD (degenerative disc disease), lumbar 02/16/2012 [...] diarrhea 09/23/2016 Non-STEMI (non-ST elevated myocardial infarction) ([facility]) 11/19/2016 setting of acute bilateral pulmonary embolism. Nonexudative age-related macular degeneration, bilateral, intermediate dry stage 05/01/2020 Optic cupping of both eyes 05/01/2020 Oral murray 10/29/2020 Pacemaker 07/25/2021 Pulmonary embolism with acute cor pulmonale ([facility]) 11/24/2016 She was initially thought to have a NSTEMI, but was found to be a PE with Right Strain and NOT a NSTEMI. Pulmonary nodule 01/08/2017 Punctate keratitis, bilateral 10/08/2021 SAH (subarachnoid hemorrhage) ([facility]) 10/03/2023 Subarachnoid hemorrhage ([facility]) 10/03/2023 Tubular adenoma of colon 12/29/2017 [...] pain without sciatica M54.50 [facility] G89.29 CONSULT TO PHYSICAL THERAPY CANCELED: [...] which included preparing to see the patient, zynv-eu-ekuq patient care, completing clinical documentation, obtaining and/or reviewing separately obtained history, performing a medically appropriate examination, counseling and educating the patient/family/caregiver, and care coordination (not separately reported). PROCEDURE: Procedures Ruben Butler PA-C documented in this encounterDayton Va Medical Center04-11-2025 NoteOhio[facility] Dublin [facility] Hospital04-09-2025 NoteOhio[facility]04-09-2025 History of Present illness Narrative* Cami Mars [...] her energy levels and has contacted her bingo caller to discuss adjusting the oxygen settings. She [...] patient consented to the use of ambient [employer] software for draft documentation of the visit consistent with [facility] s Notice of Privacy Practices. Cami Mars MD documented in this encounterDayton Va Medical Center04-08-2025 Telephone encounter Note * Telephone Encounter - Ria Mendoza LPN - 12/13/2024 4:13 PM EDT Order faxed to Alfredo Mendoza LPN [facility]04-08-2025 Miscellaneous Notes* Telephone Encounter - Ria Mendoza [...] should check overnight oximetry on 2L with Alfredo? Ria Mendoza LPN documented in this encounterDayton Va Medical Center04-08-2025 Telephone encounter Note * Telephone Encounter - Ria Mendoza LPN - 12/13/2024 3:47 PM EDT Patient calling and reports she has not noticed a large change in her fatigue level. She is questioning if she may need a higher liter flow on her O2 vs. investigating additional causes for her fatigue? Asking if we should check overnight oximetry on 2L with Alfredo? Ria Mendoza LPN [facility]04-02-2025 NoteOhiohealth Dublin [facility]04-02-2025 History of Present illness Narrative* Najma John RN - 12/07/2024 12:38 PM EDT Images from the original note were not included. [facility] Care Path Telephonic Outreach Provider Action/FYI Patient [...] 07, 2024 12:44 PM documented in this encounterDayton Va Medical Center04-01-2025 Telephone encounter Note * Telephone Encounter - [...] Pathak LPN December 06, 2024 10:15 AM [facility]04-01-2025 Miscellaneous Notes* Telephone Encounter - Cindy Pathak [...] 06, 2024 10:15 AM documented in this encounterDayton Va Medical Center03-28-2025 Telephone encounter Note * Telephone Encounter - Faby Meza - 12/02/2024 9:20 AM EDT Spoke with patient and scheduled. Faby Meza [facility]03-28-2025 Miscellaneous Notes* Telephone Encounter - Faby Meza - 12/02/2024 9:20 AM EDT Spoke with patient and scheduled. Faby Meza * Telephone Encounter - Gauri Delgado MA - 12/01/2024 6:43 PM EDT Please assist patient with scheduling Dr. Mars/Geriatric schedule. Gauri Delgado MA * Telephone Encounter - Ken Whelan MD - 12/01/2024 6:21 PM EDT ASSESSMENT/PLAN: 1. Fatigue, unspecified type - ICD9: 780.79, ICD10: R53.83 (primary diagnosis) - CONSULT TO GERIATRICS 2. 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 lower extremity pain - ICD9: 722.52, ICD10: M51.369 - CONSULT TO GERIATRICS 3. Physical debility - ICD9: 799.3, ICD10: R53.81 - CONSULT TO GERIATRICS Ken Whelan MD * Telephone Encounter - Kailey Caraballo [...] see patient. Thank you documented in this encounterDayton Va Medical Center03-27-2025 Telephone encounter Note * Telephone Encounter - Gauri Delgado MA - 12/01/2024 6:43 PM EDT Please assist patient with scheduling Dr. Mars/Geriatric schedule. Gauri Delgado MA [facility]03-27-2025 Telephone encounter Note* Telephone Encounter - Ken Whelan MD - 12/01/2024 6:21 PM EDT ASSESSMENT/PLAN: 1. Fatigue, unspecified type - ICD9: 780.79, ICD10: R53.83 (primary diagnosis) - CONSULT TO GERIATRICS 2. 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 lower extremity pain - ICD9: 722.52, ICD10: M51.369 - CONSULT TO GERIATRICS 3. 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 Asking for referral. Kailey Caraballo LPN [facility]03-27-2025 Telephone encounter Note* Telephone Encounter - Pat Domínguez - 12/01/2024 3:10 PM EDT Pt called in stating she is having back and hip pain and is requesting to see . Pt stated she did not want to see Primary care team for this reason and has a friend who referred her to [facility].Please advise if willing to see patient. Thank you [facility]03-25-2025 Telephone encounter Note* Telephone Encounter - Faby Meza - 11/29/2024 1:41 PM EDT Spoke with patient and scheduled. Faby Meza [facility]03-25-2025 Miscellaneous Notes* Telephone Encounter - Faby Meza - 11/29/2024 1:41 PM EDT Spoke with patient and scheduled. Faby Meza * Telephone Encounter - Ken Whelan MD - 11/29/2024 9:43 AM EDT ASSESSMENT/PLAN: 1. Hip pain, left - ICD9: 719.45, ICD10: M25.552 - CONSULT TO ORTHOPAEDICS Ken Whelan MD * Telephone Encounter - Ashely Kahn MA - 11/29/2024 9:38 AM EDT Patient was notified and willing to see ortho please put consult in Ashely Kahn MA * Telephone Encounter - Ashely Kahn MA - 11/29/2024 9:37 AM EDT Images from the original note were not included. Ken Whelan MD 11/29/2024 8:57 AM EDT No fracture. Consider orthopedic consultation. documented in this encounterDayton Va Medical Center03-25-2025 Telephone encounter Note * Telephone Encounter - Ken Whelan MD - 11/29/2024 9:43 AM EDT ASSESSMENT/PLAN: 1. Hip pain, left - ICD9: 719.45, ICD10: M25.552 - CONSULT TO ORTHOPAEDICS Ken Whelan MD [facility]03-25-2025 Telephone encounter Note* Telephone Encounter - Ashely Kahn MA - 11/29/2024 9:38 AM EDT Patient was notified and willing to see ortho please put consult in Ashely Kahn MA [facility]03-25-2025 Telephone encounter Note* Telephone Encounter - Ashely Kahn MA - 11/29/2024 9:37 AM EDT Images from the original note were not included. Ken Whelan MD 11/29/2024 8:57 AM EDT No fracture. Consider orthopedic consultation. [facility]03-20-2025 History of Present illness Narrative* Julia Flores [...] PATIENT PRESENTS WITH AN IMPLANTABLE OR ATTACHED TIN PLATER: No RADIOLOGY DEPARTMENT: General X-ray: Exam(s) Completed: Pelvis X-Ray: Pelvis with Hip Left PERIPHERAL IV DATA: Not applicable SIGNED BY: Christophe Nagy November 24, 2024 6:47 PM documented in this encounterDayton Va Medical Center03-20-2025 NoteOhio[facility] Dublin [facility]03-20-2025 NoteOhio[facility]03-20-2025 History of Present illness Narrative* Ken Whelan MD - 11/24/2024 6:06 PM EDT This note was created using RxAdvanceriter. Subjective Patient presents with: Pain, Back: Radiates [...] the short term and not in the senior care. Risks: Possible side effects were discussed including [...] - ICD9: 494.0, ICD10: J47.9 Stable. Ken Whelan MD documented in this encounterDayton Va Medical Center03-19-2025 NoteOhio[facility] Dublin [facility]03-19-2025 History of Present illness Narrative* Najma John [...] 23, 2024 12:44 PM documented in this encounterDayton Va Medical Center02-24-2025 Telephone encounter Note * Telephone Encounter - [...] Please advise. Thank you. Kailey Caraballo LPN. [facility]02-24-2025 Miscellaneous Notes* Telephone Encounter - Kailey Caraballo [...] you. Kailey Caraballo LPN. documented in this encounterDayton Va Medical Center02-13-2025 History of Present illness Narrative* Ashely Luevano MD - 10/20/2024 1:30 PM EST Images from the original note were not included. . [facility] Universal Note Patient name: Geoffrey Nassar PCP: Ken Whelan MD Referring Physician: CC: Multiple issues HPI: Geoffrey Nassar 89 year old female former remote smoker with PMH significant for obesity, asthma, depression, hypothyroidism, CAD, GERD, h/o bilateral PE 2016, h/o SAH, PPM, bronchiectasis last seen in [facility] in 2011, was following with [facility]. Recent evaluation in sleep lab for [...] the chest and once for hemoptysis. [facility] Date of Study: 05/05/2024 [facility]#: [id number] RESPIRATORY DATA: The study started at 01:06:17 [...] of recording time). In-Lab Sleep Study at [facility] in June 2.2 min 88% The difference in her home sleep apnea test and in-lab sleep apnea test may be related to Ativan usage. She normally takes Ativan at bedtime. PFT 2010: Air-trapping PFT [facility] 05/2019: FVC 2.54 L 106% FEV1 1.48 [...] Bronchiectasis without complication (HCC) 11/27/2009 Dr. Jaswant Luevano, pulmonary. DDD (degenerative disc disease), lumbar 02/16/2012 [...] diarrhea 09/23/2016 Non-STEMI (non-ST elevated myocardial infarction) ([facility]) 11/19/2016 setting of acute bilateral pulmonary embolism. Oral murray 10/29/2020 Pacemaker 07/25/2021 Pulmonary embolism with acute cor pulmonale ([facility]) 11/24/2016 She was initially thought to have a NSTEMI, but was found to be a PE with Right Strain and NOT a NSTEMI. Pulmonary nodule 01/08/2017 SAH (subarachnoid hemorrhage) ([facility]) 10/03/2023 Tubular adenoma of colon 12/29/2017 [...] by last echocardiogram -On diuretics. Follows with [facility] 4. Mild intermittent asthma, uncomplicated -Symptoms controlled with current inhaled therapy -Continue Breo Ellipta with as needed albuterol I spent a total of 65 minutes on the date of the service which included preparing to see the patient, weyr-eq-lvwg patient care, completing clinical documentation, obtaining and/or reviewing separately obtained history, performing a medically appropriate examination, ordering medications, tests, or procedures, and independently interpreting results (not separately reported). Ashely Luevano MD [facility] documented in this encounterDayton Va Medical Center02-13-2025 NoteOhio[facility] Dublin [facility]02-04-2025 NoteOhio[facility]02-04-2025 History of Present illness Narrative* Dia Nixon, MANAGER PLAN.CHRISTMAS BELL RINGER - 10/11/2024 2:42 PM EST CC: Patient [...] her. She has tried to discusswith her bingo caller per sleep medicine recommendations but he doesn't seem worried about it. Taking all medications as prescribed, denies side effects. She does not check her BP at home. Depression and anxiety are stable on Paxil, also takes Ativan at bedtime for sleep. Review of Systems See [facility] PAST MEDICAL HISTORY Diagnosis Date Bradycardia 01/18/2021 Bronchiectasis without complication (HCC) 11/27/2009 Dr. Jaswant Luevano, pulmonary. DDD (degenerative disc disease), lumbar 02/16/2012 [...] Mold, Penicillins, Shellfish, Spiriva With Handihaler [Tiotropium [place]], Sulfa (Sulfonamide Antibiotics), Symbicort [Budesonide-Formoterol], and Tetanus [...] occur. Patient agreeable to treatment plan. Dia Nixon APRN.CNP Medical Decision Making: Problems: Moderate: 2+ stable chronic illnesses and New problem with uncertain prognosis Data: Unique source(s) for external note(s) reviewed: 2 Unique test result(s) reviewed: 2 Risk: Moderate: Drug management Medical Decision Making Level: 4 - Moderate documented in this encounterDayton Va Medical Center01-22-2025 Miscellaneous Notes* Telephone Encounter - Faby Sears RN - 09/28/2024 10:53 AM EST Esther from [facility] calls and reports that patient [...] Patient never followed up with PCP or bingo caller after ER visit. Patient has appointment with provider next week and asking if this can be addressed. Advised Esther that patient needs to see bingo caller for this as well. Faby Sears RN documented in this encounterDayton Va Medical Center01-22-2025 Telephone encounter Note * Telephone Encounter - Faby Sears RN - 09/28/2024 10:53 AM EST Esther from [facility] calls and reports that patient [...] Patient never followed up with PCP or bingo caller after ER visit. Patient has appointment with provider next week and asking if this can be addressed. Advised Esther that patient needs to see bingo caller for this as well. Faby Sears RN [facility]12-30-2024 Telephone encounter Note* Telephone Encounter - Kailey [...] Please advise. Thank you. Kailey Caraballo LPN. [facility]12-30-2024 Miscellaneous Notes* Telephone Encounter - Kailey Caraballo [...] you. Kailey Caraballo LPN. documented in this encounterDayton Va Medical Center12-06-2024 Telephone encounter Note * Telephone Encounter - Adelaida Almendarez LPN - 08/12/2024 1:41 PM EST Phoned patient and she had already spoken to Esther and she is willing to do the referral. Printed items and faxed as requested. [facility]12-06-2024 Miscellaneous Notes* Telephone Encounter - Adelaida Almendarez LPN - 08/12/2024 1:41 PM EST Phoned patient and she had already spoken to Esther and she is willing to do the referral. Printed items and faxed as requested. * Telephone Encounter - Ken Whelan MD - 08/12/2024 7:49 AM EST Check with Geoffrey if she agrees to referral. Send referral with patient consent. * Telephone Encounter - Anny Frye LPN - 08/11/2024 3:01 PM EST Esther from [facility] calling, they see patients brother and know that patient had a recent fall and feel that they would be able to help with education and address safety concerns for patient. States if PCP is agreeable to please fax face sheet, H & P, and Med list to [phone]. Please advise. documented in this encounterDayton Va Medical Center12-06-2024 Telephone encounter Note * Telephone Encounter - Ken Whelan MD - 08/12/2024 7:49 AM EST Check with Geoffrey if she agrees to referral. Send referral with patient consent. [facility]12-05-2024 Telephone encounter Note* Telephone Encounter - Anny Frye LPN - 08/11/2024 3:01 PM EST Esther from [facility] calling, they see patients brother and know that patient had a recent fall and feel that they would be able to help with education and address safety concerns for patient. States if PCP is agreeable to please fax face sheet, H & P, and Med list to [phone]. Please advise. [facility]12-02-2024 Telephone encounter Note* Telephone Encounter [...] agreed to same and will go to [facility] ER. [facility]12-02-2024 Miscellaneous Notes* Telephone Encounter - Cindy Pathak [...] agreed to same and will go to [facility] ER. documented in this encounterDayton Va Medical Center11-04-2024 Telephone encounter Note * Telephone Encounter - Meg Arreguin OCCA - 07/11/2024 1:02 PM EST Information faxed as requested below. EVAN Weeks [facility]11-04-2024 Miscellaneous Notes* Telephone Encounter - Meg Arreguin OCCA - 07/11/2024 1:02 PM EST Information faxed as requested below. EVAN Weeks * Telephone Encounter - Meg Arreguin OCCA - 07/08/2024 4:39 PM EDT TC to [facility] at . Office is currently closed, please call back later forfax number. EVAN Weeks * Telephone Encounter - Jyotsna Lutz APRN.CHRISTMAS BELL RINGER - 07/08/2024 3:20 PM EDT Please fax my progress note and her PSG results to her Door Clamp Operator Dr Jaswant Luevano at [facility] Jyotsna Lutz APRN.CNP * Telephone Encounter - Jayde Bautista LPN - 06/24/2024 11:15 AM EDT Please see attached sleep study results- Scan on 06/24/2024 10:56 AM by Provider, External, PAJuan CarlosC: PSG [facility] 06/21/24 Jayde Bautista LPN documented in this encounterDayton Va Medical Center11-01-2024 Telephone encounter Note * Telephone Encounter - Meg Arreguin OCCA - 07/08/2024 4:39 PM EDT TC to [facility] at . Office is currently closed, please call back later forfax number. EVAN Weeks [facility]11-01-2024 Telephone encounter Note* Telephone Encounter - Jyotsna Lutz APRN.CNP - 07/08/2024 3:20 PM EDT Please fax my progress note and her PSG results to her Door Clamp Operator Dr Jaswant Luevano at [facility] Jyotsna Lutz APRN.CNP [facility] Work Phone: 1(562) 244-218611-01-2024 Instructions* Patient Instructions* Jyotsna Lutz APRN.CNP - 07/08/2024 11:09 AM EDT We will notify Dr Jaswant Luevano of your in-lab sleep study results documented in this encounterDayton Va Medical Center11-01-2024 History of Present illness Narrative* Jyotsna Lutz APRN.CNP - 07/08/2024 10:30 AM EDT Images from the original note were not included. [facility] [facility] Follow [facility]/ Established patient [...] which included preparing to see the patient, qixd-gc-aqgb patient care, completing clinical documentation, obtaining and/or reviewing separately obtained history, performing a medically appropriate examination, counseling and educating the pa tient/family/caregiver, ordering medications, tests, or procedures, and communicating results to the patient/family/caregiver. PDMP website checked and validated. All prescriptions have been APPROPRIATELY filled. No suspiciousactivity was identified. 04/18/2024 by Kaya Moon MD Here for follow up for discussion of sleep study results. Dr Moon evaluated her for hypersomnia--difficulty waking up and feeling tired during the day, may be exacerbated by ativan 2 mg nightly. He obtained HSAT to rule out JADIEL--it showed hypoxia even in the absence of respiratory events thereforeshe was sent for in- lab PSG which she had done at [facility]. She was put on supplemental O2 just [...] better after taking lasix prescribed by her divisional human resources director Dr Mcpherson, this is a new prescription for her, and he stopped amlodipine Her bingo caller is Dr Jaswant Luevano at [facility] Sleep is fine Takes lorazepam 2 mg [...] are sorted in reverse-chronological order 04/14/2024 07/03/2024 Walnut Sleepiness Scale Score 9 (No clinically significant [...] for supplemental O2. Case discussed with Dr Moon. Her Door Clamp Operator is Dr Jaswant Luevano at [facility] -- will update him on her PSG; pt is aware of this plan. Her sleep has improved with treatment of chronic UTI and with lasix from Cardiology, much less nocturia She can follow up with Sleep prn Jyotsna uLtz APRN.BERTHA documented in this encounterDayton Va Medical Center11-01-2024 NoteOhiohealth Dublin [facility]10-30-2024 Instructions* Patient Instructions* Ailyn Bonner APRN.BERTHA - 07/06/2024 2:58 PM EDT Continue to work with sleep medicine. Follow up in 6 months. documented in this encounterDayton Va Medical Center10-30-2024 NoteOhiohealth Dublin Methodist Hospital10-30-2024 History of Present illness Narrative* EdmundoaryKenAilyn M, MANAGER PLAN.[employer] - 07/06/2024 2:40 PM EDT IMPRESSION: Geoffrey [...] once oxygenation improves. Discussed reaching out to bingo caller. Pt agreeable. No orders found for this [...] results. She was continuing to work with [employer] is on hold due to oxygen desaturation. [...] jaundice UE SAB EF EE WE WF Contact Lens Flashing Puncher R 5/5 5/5 5/5 5/5 5/5 5/5 [...] which included preparing to see the patient, ctht-so-othg patient care, completing clinical documentation, performing a medically appropriate examination, counseling and educating the patient/family/caregiver, ordering medications, tests, or p rocedures and communicating results to the patient/family/caregiver. LAW Kebede.CHRISTMAS BELL RINGER [facility] documented in this encounterDayton Va Medical Center10-18-2024 Telephone encounter Note * Telephone Encounter - Jayde Bautista LPN - 06/24/2024 11:15 AM EDT Please see attached sleep study results- Scan on 06/24/2024 10:56 AM by Provider, NIRMAL Stevenson: PSG [facility] 06/21/24 Jayde Bautista LPN [facility]09-30-2024 Telephone encounter Note* Telephone Encounter - Saida Sepulveda MA - 06/06/2024 12:20 PM EDT Prescription [...] daily at bedtime for 90 days. Saida Sepulveda MA June 06, 2024 12:20 PM [facility]09-30-2024 Miscellaneous Notes* Telephone Encounter - Saida Sepulveda MA - 06/06/2024 12:20 PM EDT Prescription [...] daily at bedtime for 90 days. Saida Sepulveda MA June 06, 2024 12:20 PM documented in this encounterDayton Va Medical Center09-30-2024 Telephone encounter Note * Telephone Encounter - Laurence Torres LPN - 06/06/2024 10:07 AM EDT Pt called in and has not heard anything regarding testing to be done at [facility] for a Polysomnogram. I have re-faxed orders, face sheet and supporting information to [phone]. I have asked the department to call pt to schedule. Pt aware if she does not hear from [facility] to call the department to schedule procedure. Referral has been place. Laurence Torres LPN [facility]09-30-2024 Miscellaneous Notes* Telephone Encounter - Laurence Torres LPN - 06/06/2024 10:07 AM EDT Pt called in and has not heard anything regarding testing to be done at [facility] for a Polysomnogram. I have re-faxed orders, face sheet and supporting information to [phone]. I have asked the department to call pt to schedule. Pt aware if she does not hear from [facility] to call the department to schedule procedure. Referral has been place. Laurence Torres LPN documented in this encounterDayton Va Medical Center09-25-2024 Telephone encounter Note * Telephone Encounter - Jose Baron MA - 06/01/2024 9:30 AM EDT Received last office note request from [facility]. [facility] notes faxed and confirmationreceived [facility]09-25-2024 Miscellaneous Notes* Telephone Encounter - Jose Baron MA - 06/01/2024 9:30 AM EDT Received last office note request from [facility]. [facility] notes faxed and confirmationreceived documented in this encounterDayton Va Medical Center09-20-2024 Nurse Note* Ana Frye MA - 05/27/2024 10:10 AM EDT Per PCP EKG and Echo faxed to Dr. Luevano's office with [facility] at [phone]. Ana Frye MA [facility]09-20-2024 Nurse Note* Ana Frye MA - 05/27/2024 10:10 AM EDT Per PCP EKG and Echo faxed to Dr. Luevano's office with [facility] at [phone]. Ana Frye MA documented in this encounterDayton Va Medical Center09-20-2024 History of Present illness Narrative* Bria Solorio [...] PATIENT PRESENTS WITH AN IMPLANTABLE OR ATTACHED TIN PLATER: No RADIOLOGY DEPARTMENT: General X-ray: Exam(s) Completed: Chest X-Ray PERIPHERAL IV DATA: Not applicable SIGNED BY: RT Luz Marina(R) May 27, 2024 9:04 AM documented in this encounterDayton Va Medical Center09-20-2024 NoteOhiohealth Dublin Methodist Hospital09-20-2024 NoteOhio[facility] Dublin [facility]09-20-2024 History of Present illness Narrative* Ken Whelan MD - 05/27/2024 8:24 AM EDT This note was created using [employer]. Subjective Patient presents with: Follow Up: From [...] has known asthma and bronchiectasis followed by [facility]. She was on an annual follow [...] ICD10: R06.00 - NT PRO BNP Ken Whelan MD documented in this encounterDayton Va Medical Center09-19-2024 NoteOhiohealth Dublin Methodist Hospital09-19-2024 History of Present illness Narrative* Jackie Lainez, [...] sharply on her. PLAN FOR NEXT VISIT: [place] SUBJECTIVE: Patient notes twice this week she [...] was used in selection of appropriate interventions. Self-Shelter Management: 1: Long discussion with patient about [...] 1615 Jackie Lainez PT documented in this encounterDayton Va Medical Center09-18-2024 Telephone encounter Note * Telephone Encounter - Jayde Bautista LPN - 05/25/2024 4:18 PM EDT Orders for PSG faxed to [facility] per request. Jayde Bautista LPN [facility]09-18-2024 Miscellaneous Notes* Telephone Encounter - Jayde Bautista LPN - 05/25/2024 4:18 PM EDT Orders for PSG faxed to [facility] per request. Jayde Bautista LPN * Telephone Encounter - Pat Domínguez - 05/25/2024 4:07 PM EDT Pt would like PSG done at [facility]. Please fax order. Thank you documented in this encounterDayton Va Medical Center09-18-2024 Telephone encounter Note * Telephone Encounter - Pat Domínguez - 05/25/2024 4:07 PM EDT Pt would like PSG done at [facility]. Please fax order. Thank you [facility]09-13-2024 NoteOhiohealth Dublin [facility] Hospital09-13-2024 History of Present illness Narrative* Dave Padilla, [...] patient safety with use of gait belt. Self-Shelter Management: 1: Education on symptoms to watch [...] 1140 DIONI Magana PT documented in this encounterDayton Va Medical Center09-09-2024 Telephone encounter Note * Telephone Encounter - Jayde Bautista LPN - 05/16/2024 4:57 PM EDT Pt is agreeable, please place order. Jayde Bautista LPN [facility]09-09-2024 Miscellaneous Notes* Telephone Encounter - Jayde Bautista LPN - 05/16/2024 4:57 PM EDT Pt is agreeable, please place order. Jayde Bautista LPN * Telephone Encounter - Kaya Moon Jr., MD - 05/16/2024 11:37 AM EDT I would recommend an in lab study to better evaluate. If pt willing, will place order. Kaya Moon MD * Telephone Encounter - Jayde Bautista LPN - 05/16/2024 10:37 AM EDT TC to pt who voiced understanding with seeing Pulm at the hospital. If it is recommended to do an in lab study, pt is agreeable. Jayde Bautista LPN * Telephone Encounter - Jayde Bautista LPN - 05/16/2024 8:48 AM EDT ----- Message from Kaya Moon MD sent at 05/13/2024 6:21 PM EDT ----- Patient with hypoxia at night. Patient not wanting in lab sleep study. For hypoxia recommend followup with pulmonary - previously seen by Dr. Reynold Luevano at [facility]. Kaya Moon MD documented in this encounterDayton Va Medical Center09-09-2024 Telephone encounter Note * Telephone Encounter - Kaya Moon Jr., MD - 05/16/2024 11:37 AM EDT I would recommend an in lab study to better evaluate. If pt willing, will place order. Kaya Moon MD [facility]09-09-2024 NoteOhiohealth Dublin Methodist Hospital09-09-2024 History of Present illness Narrative* Rhoda Santiago MD - 05/16/2024 11:27 AM EDT OTOLARYNGOLOGY-HEAD AND NECK SURGERY CC: Geoffrey Nassar is a 89 year old female who is seen at the request of Dia Nixon APRN.CNP for evaluation of throat pain. My findings and recommendations will be communicated to the referringprovider via the shared electronic medical record. Assessment: Sore throat (primary encounter diagnosis) History of oral lesions Plan: - Discussed that there are no visible abnormalities on her examination - Discussed that these could have been viral in origin - Follow up with me as needed Rhoda Santiago MD HPI: Ms. Nassar is an 89 [...] Bronchiectasis without complication (HCC) Comment: Dr. Jaswant Luevano, pulmonary. 02/16/2012: DDD (degenerative disc disease), lumbar [...] gland masses or hypertrophy is noted. Rhoda Santiago MD documented in this encounterDayton Va Medical Center09-09-2024 Telephone encounter Note * Telephone Encounter - Jayde Bautista LPN - 05/16/2024 10:37 AM EDT TC to pt who voiced understanding with seeing Pulm at the hospital. If it is recommended to do an in lab study, pt is agreeable. Jayde Bautista LPN [facility]09-09-2024 Telephone encounter Note* Telephone Encounter - Jayde Bautista LPN - 05/16/2024 8:48 AM EDT ----- Message from Kaya Moon MD sent at 05/13/2024 6:21 PM EDT ----- Patient with hypoxia at night. Patient not wanting in lab sleep study. For hypoxia recommend followup with pulmonary - previously seen by Dr. Reynold Luevano at [facility]. Kaya Moon MD [facility]09-06-2024 Telephone encounter Note* Telephone Encounter - Adelaida Almendarez LPN - 05/13/2024 3:22 PM EDT Phoned patient aware referral is in computer. Assisted with transfer to clinic scheduler to get ENT appt set up hopefully in [place]. [facility]09-06-2024 Miscellaneous Notes* Telephone Encounter - Adelaida Almendarez LPN - 05/13/2024 3:22 PM EDT Phoned patient aware referral is in computer. Assisted with transfer to clinic scheduler to get ENT appt set up hopefully in [place]. * Telephone Encounter - Faby Sears RN - 05/13/2024 2:00 PM EDT Patient calls and is asking if provider can place an ENT referral. Patient would like to see if sheswetha get into [facility]. Patient can't get into [employer] until end of month and patientstates that she needs to be seen sooner than that. Please review and advise, Faby Sears RN documented in this encounterDayton Va Medical Center09-06-2024 Telephone encounter Note * Telephone Encounter - Dia Nixon APRN.CNP - 05/13/2024 2:18 PM EDT Addressed at office visit today Dia Nixon APRN.CHRISTMAS BELL RINGER [facility]09-06-2024 Miscellaneous Notes* Telephone Encounter - Dia Nixon APRN.CNP - 05/13/2024 2:18 PM EDT Addressed at office visit today Dia Nixon APRN.CHRISTM[employer] BELL RINGER documented in this encounterDayton Va Medical Center09-06-2024 Telephone encounter Note * Telephone Encounter - Faby Sears RN - 05/13/2024 2:00 PM EDT Patient calls and is asking if provider can place an ENT referral. Patient would like to see if sheswetha get into [facility]. Patient can't get into [facility] until end of month and patientstates that she needs to be seen sooner than that. Please review and advise, Faby Sears RN [facility]09-06-2024 History of Present illness Narrative* Dia Nixon, MANAGER PLAN.[facility] - 05/13/2024 9:40 AM EDT CC: Patient presents with: Evaluate for hypoxia per HSAT HPI Geoffrey Nassar is a 89 year old female who presents today for above. She had home sleep study ordered by Dr. Moon to evaluate for hypersomnia and EDS. Study revealed hypoxia, even in the absence of respiratory events, with mean oxygen saturation of 87%. In lab study recommended along with clinical correlation for possible underlying cardiac or pulmonary disorder. Findings neither disputed nor confirmed JADIEL. 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 Last appointment 02/11/24. Last Pacemaker check 12/25/23. Cardiac testing- carotid ultrasound 02/25 without significant stenosis; echocardiogram 10/03 EF normal, no significant valvular or structural abnormalities; stress test 01/09/21 without acute findings. Last EKG 05/01/21-sinus bradycardia, borderline EKG Door Clamp Operator- Dr. Jaswant Luevano. Last appointment 02/26/24. No change in medications, [...] Bronchiectasis without complication (HCC) Comment: Dr. Jaswant Luevano, pulmonary. 02/16/2012: DDD (degenerative disc disease), lumbar [...] Mold, Penicillins, Shellfish, Spiriva With Handihaler [Tiotropium [place]], Sulfa (Sulfonamide Antibiotics), Symbicort [Budesonide-Formoterol], and Tetanus [...] (FLUSH) INJECTION SYRINGE She will contact her bingo caller to discuss lung function testing Follow-up pending [...] occur. Patient agreeable to treatment plan. Dia Nixon APRN.CNP documented in this encounterDayton Va Medical Center09-06-2024 NoteOhio[facility] Dublin [facility]09-05-2024 Telephone encounter Note* Telephone Encounter - Dia Nixon APRN.CNP - 05/12/2024 1:53 PM EDT Will address tomorrow Dia Nixon APRN.CNP [facility]09-05-2024 Miscellaneous Notes* Telephone Encounter - Dia Nixon APRN.CNP - 05/12/2024 1:53 PM EDT Will address tomorrow Dia Nixon APRN.CHRISTMAS BELL RINGER * Telephone Encounter - Ailyn Simpson - [...] in Physical Therapy today. Scheduled with Dia Nixon HOOP BENDING MACHINE OPERATOR to evaluate hypoxia on 05/13/24. Transferred to clinic scheduler for in lab sleep study. Ute Gibbs RN documented in this encounterDayton Va Medical Center09-05-2024 Telephone encounter Note * Telephone Encounter - Ailyn Simpson - 05/12/2024 1:21 PM EDT Patient transferred to [facility] for assistance with scheduling lab sleep study. No orders available in patient's chart, PSS unable to schedule without orders. Please notify patient when orders have been signed and are available. [facility]09-05-2024 Telephone encounter Note* Telephone Encounter - Ute [...] in Physical Therapy today. Scheduled with Dia Nixon NP to evaluate hypoxia on 05/13/24. Transferred to clinic scheduler for in lab sleep study. Ute Gibbs RN [facility]09-05-2024 NoteOhio[facility] Dublin [facility]09-05-2024 History of Present illness Narrative* Jackie Lainez, [...] 1150 Session Stop Time : 1229 DIONI Magana, PT documented in this encounterDayton Va Medical Center08-30-2024 NoteOhiohealth Dublin [facility] Hospital08-30-2024 History of Present illness Narrative* Aubrey Sarmiento - 05/06/2024 10:51 AM EDT Sleep Study Check-In Documentation Date: May 06, 2024 Name: Geoffrey Nassar Comments: HST was returned in working order with all sleep questionnaires Aubrey Sarmiento * Cher North - 05/02/2024 8:50 PM EDT Nomad # [id number] , date shipped out 05-03-24 Fed ex only Tracking mailout: [id number] Tracking return: [id number] * Alison Siddiqi - 04/29/2024 8:55 AM EDT April 29, 2024 An order has been received for Home Sleep Apnea Test (HSAT) from Kaya Whitman Jr., MD , A. Sleep Center Staff/Track Repair Laborer Staff Orders. Visit prep complete - Please refer to the sleep study order (under procedures tab) for protocol details and special instructions. The sleep study is scheduled for 05/03. Insurance: Payor: MEDICARE / Plan: MEDICARE A AND B / Product Type: Medicare / Payer/Plan Subscr Sex Relation Sub. Ins. ID Effective Group Num 1. MEDICARE - IDGEOFFREY LOYOLA 1935 Female Self [id number] 02/05/02 [address] ANTHEM - [facility]* GEOFFREY NASSAR Barbie 1935 Female Self [id number] 08/07/16 [id number] [address] Alison Siddiqi documented in this encounterDayton Va Medical Center08-29-2024 NoteOhio[facility] Dublin [facility] Hospital08-29-2024 History of Present illness Narrative* Jackie Lainez, PT - 05/05/2024 2:46 PM EDT Episode [...] 1318 Jackie Lainez PT documented in this encounterDayton Va Medical Center08-26-2024 NoteHNO ID: [id number] Author: ?, ?, ? Service: ? Author Type: ? Type: Progress Notes Filed: 05/06/2024 10:52 Note Text: Nomad # [id number] , date shipped out 05-03-24 Fed ex only Tracking mailout: [id number] Tracking return: [id number] 1812[facility]08-26-2024 Telephone encounter Note* Telephone Encounter - Ute [...] Gibbs RN May 02, 2024 2:15 PM [facility]08-26-2024 Miscellaneous Notes* Telephone Encounter - Ute Gibbs [...] 02, 2024 2:15 PM documented in this encounterDayton Va Medical Center08-23-2024 NoteOhio[facility] Dublin [facility]08-21-2024 NoteOhio[facility]08-21-2024 History of Present illness Narrative* Jackie Lainez, [...] in SLS to reflect decreased fall risk. [place] in home exercise program including cardiovascular exercise. Planned Interventions, Frequency, and Duration: Current Frequency: 1x/week Duration: 8 weeks Total Number of Visits Planned: 8 Planned Treatment Interventions: Therapeutic exercise (31945), Neuromuscular re- education (27940), Manual therapy (76065), Therapeutic activities (79680), Self- detention management (21610), Patient/Family/Caregiver Education, Body Mechanics Training, Gait Training (85889) PLAN FOR NEXT VISIT: Initiate balance exercises [...] Lainez PT - 04/26/2024 3:42 PM EDT Program_ID:[id number] Access Code: [email or web address] URL: [email or web address] Date: 04-26-2024 Prepared By: Jackie Lainez Program [...] sets - 10 reps documented in this encounterDayton Va Medical Center08-15-2024 History of Present illness Narrative* FegatelliMichelle APRN.CNP - 04/21/2024 1:00 PM EDT NEUROSURGERY TELEPHONE VISIT PROGRESS NOTE Michelle Reagan APRN.BERTHA This is a telephone encounter initiated for [...] 1935 Current Age: [age] year old MRN/E# [id number] Last Office Visit: 01/21/2024 Ms.Sally Barbie Nassar [...] colon who was seen for consult at [facility] on 10/03/2023 after transfer from an outside ED by Dr. Markham. Patient was seen aftera fall in her [...] follow up MIKEL Abernathy Neurosurgery Nurse Practitioner [facility] Roberto General FOLLOW UP: Return in about 6 months (around 10/22/2024) for routine visit (phone or in person). I have communicated my name and active licensure. The patient's identity and physical location wereverified at the time of this visit. Either the patient or their legal senior account representative has been informed of the risks and benefits of -- and alternatives to -- treatment through a remote evaluation andconsents to proceed with the evaluation remotely. Time spent: 5-10 minutes Please Note: This note has been partially generated using [employer] a speech recognition software program, and may contain errors including punctuation, grammar, spelling, gender, and inappropriate words or phrases that pertain to the system. documented in this encounterDayton Va Medical Center08-15-2024 NoteHNO ID: [id number] Author: MICHELLE REAGAN APRN.CNP Service: ? Author Type: Nurse Practitioner Type: Progress Notes Filed: 04/21/2024 13:27 Note Text: NEUROSURGERY TELEPHONE VISIT PROGRESS NOTE Michelle Reagan APRN.CNP This is a telephone encounter initiated [...] 1935 Current Age: [age] year old MRN/E# [id number] Last Office Visit: 01/21/2024 Ms.Sally Barbie Nassar [...] colon who was seen for consult at [facility] on 10/03/2023 after transfer from an outside ED by Dr. Markham. Patient was seen after a fall in [...] included)...[facility]08-12-2024 Instructions* Patient Instructions* Kaya Moon Jr., MD - 04/18/2024 9:08 AM EDT Your most recent body mass index (BMI) that we have on record is 31.31 kg/m2. Obstructive sleep apnea (JADIEL) worsens with an increase in weight; reduction in weight may improve or resolve your JADIEL. Ifyou are not already seeking treatment, there are resources available at the [facility] such as a nutrition consultation or referral to weight management programs at our [employer]. Please let us know if we can assist with a referral. documented in this encounterDayton Va Medical Center08-12-2024 NoteOhio[facility]08-12-2024 History of Present illness Narrative* Kaya Moon Jr., MD - 04/18/2024 8:21 AM EDT NEW PATIENT (CONSULT) HISTORY AND PHYSICAL EXAM PRIMARY CARE PHYSICIAN: Ken Whelan MD REASON FOR CONSULT: See below REFERRING PHYSICIAN: Ailyn Bonner APR* CHIEF COMPLAINT: Can't wake up in AM Consultation requested by Ailyn Bonner APR* for an opinion regarding chief complaint [...] in 2019 that per report was unremarkable ([facility]) -- note BMI unchanged since that time. [...] does worry about it. Also adaughter in [place], [place] she worries about. States another daughter with eating disorder and granddaughter in [place] who is alone but a future dancer. 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 Jaswant Luevano, pulmonary. 02/16/2012: DDD (degenerative disc disease), lumbar [...] diarrhea 11/19/2016: Non-STEMI (non-ST elevated myocardial infarction) ([facility]) Comment: setting of acute bilateral pulmonary embolism. 10/29/2020: Oral murray 07/25/2021: Pacemaker 11/24/2016: Pulmonary embolism with acute cor pulmonale ([facility]) Comment: She was initially thought to have a NSTEMI, but was found to be a PE with Right Strain and NOT a NSTEMI. 01/08/2017: Pulmonary nodule 10/03/2023: SAH (subarachnoid hemorrhage) ([facility]) 12/29/2017: Tubular adenoma of colon FAMILY [...] Wt 77.7 kg (171 lb 3.2 oz) CeL384% BMI 31.31 kg/m GENERAL EXAM: General appearance: [...] which included preparing to see the patient, xwzq-qh-open patient care, completing clinical documentation, obtaining and/or reviewing separately obtained history, performing a medically appropriate examination, counseling and educating the pa tient/family/caregiver, ordering medications, tests, or procedures, and communicating results to the patient/family/caregiver. PDMP website checked and validated. All prescriptions have been APPROPRIATELY filled. No suspiciousactivity was identified. 04/18/2024 by Kaya Moon MD documented in this encounterDayton Va Medical Center07-29-2024 Telephone encounter Note * Telephone Encounter - [...] Alonso LPN April 04, 2024 7:26 AM [facility] [facility] Miscellaneous Notes* Telephone Encounter - Christin Alonso [...] 04, 2024 7:26 AM documented in this encounterDayton Va Medical Center07-24-[facility]24 History of Present illness Narrative* Dia Nixon, MANAGER PLAN.CHRISTMAS BELL RINGER - 03/30/2024 3:04 PM EDT Images from [...] She has mild asthma, follows up with bingo caller yearly. No recent exacerbations and using inhalers as prescribed. Review of Systems Constitutional: Negative for chills, diaphoresis, fatigue, fever and unexpected weight change. Respiratory: Negative for cough, shortness of breath and wheezing. Cardiovascular: Negative for chest pain, palpitations and leg swelling. Neurological: Negative for syncope and headaches. PAST MEDICAL HISTORY Diagnosis Date Bradycardia 01/18/2021 Bronchiectasis without complication (HCC) 11/27/2009 Dr. Jaswant Luevano, pulmonary. DDD (degenerative disc disease), lumbar 02/16/2012 [...] Mold, Penicillins, Shellfish, Spiriva With Handihaler [Tiotropium [place]], Sulfa (Sulfonamide Antibiotics), Symbicort [Budesonide-Formoterol], and Tetanus [...] occur. Patient agreeable to treatment plan. Dia Nixon APRN.CHRISTMAS BELL RINGER documented in this encounterDayton Va Medical Center06-26-2024 Telephone encounter Note * Telephone Encounter - [...] Please advise. Thank you. Kailey Caraballo LPN. [facility]06-26-2024 Miscellaneous Notes* Telephone Encounter - Kailey Caraballo [...] you. Kailey Caraballo LPN. documented in this encounterDayton Va Medical Center06-10-2024 Telephone encounter Note * Telephone Encounter - Norma Wong RN - 02/15/2024 11:36 AM EDT Patient returned call and given provider's message below and patient verbalized understanding. Gee Wong RN [facility]06-10-[facility]24 Miscellaneous Notes* Telephone Encounter - Norma Wong RN - 02/15/2024 11:36 AM EDT Patient returned call and given provider's message below and patient verbalized understanding. Gee Wong RN * Telephone Encounter - Yessenia Preez LPN - 02/15/2024 9:40 AM EDT Message left for pt to return call to a nurse. * Telephone Encounter - Ken Whelan MD - 02/13/2024 12:22 PM EDT ASSESSMENT/PLAN: 1. Acquired hypothyroidism - ICD9: 244.9, ICD10: E03.9 Decrease dose. Requested Prescriptions Signed Prescriptions Disp Refills levothyroxine (SYNTHROID) 88 mcg tablet 66 tablet 1 Sig: Take 1 tablet by mouth five times a week. Mondays thru Fridays. None on Saturdays and Sundays. Authorizing Provider: KEN WHELAN MD * Telephone Encounter - Yessenia Perez LPN - 02/12/2024 3:22 PM EDT Called pt and pharmacy verified. She report she has been fatigued for some time. Cardiology ordered the labs. That note is too in scanned documents. * Telephone Encounter - Cindy Pathak LPN - 02/12/2024 3:07 PM EDT Patient called to alert PCP of low TSH that was resulted 02/11/2024 at [facility]. Current dose of levothyroxine is 88 MCG 6 days a week. documented in this encounterDayton Va Medical Center06-10-2024 Telephone encounter Note * Telephone Encounter - Yessenia Perez LPN - 02/15/2024 9:40 AM EDT Message left for pt to return call to a nurse. [facility]06-08-[facility] Telephone encounter Note* Telephone Encounter - Ken Whelan MD - 02/13/2024 12:22 PM EDT ASSESSMENT/PLAN: 1. Acquired hypothyroidism - ICD9: 244.9, ICD10: E03.9 Decrease dose. Requested Prescriptions Signed Prescriptions Disp Refills levothyroxine (SYNTHROID) 88 mcg tablet 66 tablet 1 Sig: Take 1 tablet by mouth five times a week. Mondays thru Fridays. None on Saturdays and Sundays. Authorizing Provider: KEN WHELAN MD [facility]06-07-[facility] Telephone encounter Note* Telephone Encounter - Yessenia Perez LPN - 02/12/2024 3:22 PM EDT Called pt and pharmacy verified. She report she has been fatigued for some time. Cardiology ordered the labs. That note is too in scanned documents. [facility]-07[facility] Telephone encounter Note* Telephone Encounter - Cindy Pathak LPN - 02/12/2024 3:07 PM EDT Patient called to alert PCP of low TSH that was resulted 02/11/2024 at [facility]. Current dose of levothyroxine is 88 MCG 6 days a week. [facility]05-22-2024 NoteHNO ID: [id number] Author: JOSE RODRIGUEZ CCC-RETICLE PRINTER Service: ? Author Type: Speech Language Pathologist Type: Progress Notes Filed: 01/27/2024 16:46 Note Text: Episode Visit Count: 1 Therapist That Will Accept/Oversee The Plan Of Care: Jennifer Start of Care Date: 01/27/24 Onset Date: 09/07/23 (- fall in 09/2023) Plan of Care Certification Date: 01/27/24 Next Certification Due Date: 02/26/24 Patient Identified by Name and Date of : Yes [facility] SPEECH and COGNITIVE LINGUISTIC EVALUATION PLAN OF CARE: Impression: Functional communication without limitations in: Speech Communication deficits identified: Cognitive deficits RECOMMENDATION: RETICLE PRINTER Recommendations: Outpatient Speech Therapy Results and Recommendations [...] and Duration: Planned Treatment Interventions: Cognitive-Linguistic Training (55102, 23832, 27105), Patient / Caregiver Education/ Training Current Frequency: [...] Eval Sound Production with Language Expression and Embossing Press Operator Molded Goods ([id number]) Speech/Language Therapy (more content not included)...[id number] History of Present illness Narrative* Jose Rodriguez CCC-RETICLE PRINTER - 01/27/2024 3:31 PM EDT Episode Visit Count: 1 Therapist That Will Accept/Oversee The Plan Of Care: eJnnifer Start of Care Date: 01/27/24 Onset Date: 09/07/23 (- fall in 09/2023) Plan of Care Certification Date: 01/27/24 Next Certification Due Date: 02/26/24 Patient Identified by Name and Date of : Yes [facility] SPEECH and COGNITIVE LINGUISTIC EVALUATION PLAN OF CARE: Impression: Functional communication without limitations in: Speech Communication deficits identified: Cognitive deficits RECOMMENDATION: RETICLE PRINTER Recommendations: Outpatient Speech Therapy Results and Recommendations [...] and Duration: Planned Treatment Interventions: Cognitive-Linguistic Training (29087, 08498, 36276), Patient / Caregiver Education/ Training Current Frequency: [...] Eval Sound Production with Language Expression and Embossing Press Operator Molded Goods (63904) Speech/Language Therapy (89834): Skilled Intervention: Educated and instructed patient on compensatory strategies for word-finding, complex reasoning, categorization, and thought organization Educated and instructed patient on memory recall strategies such as verbal repetition, visualization, association, chunking, graphic skills, and designated routine. Provided multi-modality cues in simple reasoning, sequencing, and visual reasoning / organization. Current Home Program: - memory strategies Billing: Eval Sound Production with Language Expression and Embossing Press Operator Molded Goods (49040) and Speech Treatment (07446) Total time / Length of visit: 60 minutes Session Start Time : 1530 Session Stop Time : 163 CECILIO Self documented in this encounterDayton Va Medical Center05-16-2024 History of Present illness Narrative* Michelle Reagan APRN.CNP - 01/21/2024 2:00 PM EDT NEUROSURGERY FOLLOW UP OFFICE NOTE Michelle Reagan APRN.CNP Date of visit: January 21, 2024 Patient Name: Ms.Sally Barbie Nassar Date of : 1935 Current Age: [age] year old Sex: female MRN/E# [id number] Last Office Visit: 10/22/2023 CHIEF COMPLAINT: Patient presents with: Established Patient HPI: The patient presents for a follow up without new imaging for evaluation. This is an 88-year-old female with a PMHx of diverticulosis, HTN, PE, pacemaker, asthma, umbilical hernia, GERD, hypothyroidism, degenerative disc disease (lumbar) tubular adenoma of the colon who was seen for consult at [facility] on 10/03/2023 after transfer from an outside ED by Dr. Markham. Patient was seen [facility] after tripping over a curb causing her [...] Bronchiectasis without complication (HCC) 11/27/2009 Dr. Jaswant Luevano, pulmonary. DDD (degenerative disc disease), lumbar 02/16/2012 [...] 3-month follow-up MIKEL Abernathy Neurosurgery Nurse Practitioner [facility] FOLLOW UP: Return in about 3 months (around 04/22/2024) for routine follow up. Please Note: This note has been partially generated using [employer] a speech recognition software program, and may contain errors including punctuation, grammar, spelling, gender, and inappropriate words or phrases that pertain to the system. documented in this encounterDayton Va Medical Center05-16-2024 NoteHNO ID: [id number] Author: MICHELLE REAGAN APRN.CNP Service: ? Author Type: Nurse Practitioner Type: Progress Notes Filed: 01/21/2024 14:37 Note Text: NEUROSURGERY FOLLOW UP OFFICE NOTE Michelle Reagan APRN.CNP Date of visit: January 21, 2024 Patient Name: Ms.Sally Barbie Nassar Date of : 1935 Current Age: [age] year old Sex: female MRN/E# [id number] Last Office Visit: 10/22/2023 CHIEF COMPLAINT: Patient presents with: Established Patient HPI: The patient presents for a follow up without new imaging for evaluation. This is an 88-year-old female with a PMHx of diverticulosis, HTN, PE, pacemaker, asthma, umbilical hernia, GERD, hypothyroidism, degenerative disc disease (lumbar) tubular adenoma of the colon who was seen for consult at [facility] on 10/03/2023 after transfer from an outside ED by Dr. Markham. Patient was seen after a fall in [...] 01/18/2021 Bronchiectasis without complication (HCC) 11/27/2009 Dr. aJswant Luevano, pulmonary. DDD (degenerative disc disease), lumbar 02/16/2012 [...] included)...[facility]05-01-2024 Instructions* Patient Instructions* Ailyn Bonner APRN.BERTHA - 01/06/2024 3:13 PM EDT Referral placed for sleep medicine. Please call [phone] and schedule an appt with Dr. Kaya Moon- sleep medicine for evaluation. Referral placed for speech therapy. You [place] get [place] documented in this encounterDayton Va Medical Center05-01-2024 History of Present illness Narrative* Ailyn Bonner [...] jaundice UE SAB EF EE WE WF Contact Lens Flashing Puncher R 5/5 5/5 5/5 5/5 5/5 5/5 L 5/5 5/5 5/5 5/5 5/5 5/5 LE HF KF KE PF DF R / 5/5 5/5 5/5 5/5 L 5/5 5/5 5/5 5/5 5/ During our face to face clinical encounter [...] up. After visit summary discussed. Ailyn Bonner APRN.CHRISTMAS BELL RINGER Physical Medicine & Rehab [facility] documented in this encounterDayton Va Medical Center04-01-2024 Miscellaneous Notes* Telephone Encounter - Saida Sepulveda MA - 12/07/2023 9:56 AM EDT Requested Prescriptions Pending Prescriptions Disp Refills LORazepam (ATIVAN) 2 mg tab 30 tablet 2 Sig: Take 1 tablet by mouth daily at bedtime for 90 days. Date of last office visit in primary care: 10/14/2023 Date of next office visit in primary care: 03/30/2024 Please advise. Thank you. Saida Sepulveda MA. documented in this encounterDayton Va Medical Center03-05-2024 NoteHNO ID: [id number] Author: ARACELIS PORTILLO, PhD Service: ? Author Type: Psychologist Type: Progress Notes Filed: 11/10/2023 14:32 Note Text: [facility] Department of Neurology Section of Neuropsychology Neuropsychological Evaluation Report PATIENT NAME: Geoffrey Nassar DATE OF : 1935 DATE OF SERVICE: 11/09/2023 REFERRAL SOURCE: Michelle Reagan APRN, CNP Geoffrey is an 88 year [...] to her home she bent down to apple picker a twig that had fallen. She [...] take her to the emergency department at [facility]. CT scan of the brain indicated a brain bleed and she was subsequently transferred to [facility] where she was admitted. Geoffrey [...] baseline. 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: independent - recently hired a natural gas plant technician and uses food delivery services from [employer] Medications: independent Finances: independent Driving: independent MEDICAL [...] use: denied Recent Neurological workup with Michelle Reagan APRN, CNP on 10/22/2023 revealed: Neurological Exam: [...] content not included)...[facility]03-05-2024 NoteHNO ID: [id number] Author: ARACELIS PORTILLO, PhD Service: ? Author Type: Psychologist Type: Progress Notes Filed: 11/10/2023 14:32 Note Text: [facility]03-04-2024 Instructions* Patient Instructions* Tremaine Landon MD - 11/09/2023 2:27 PM EST Thank you very much for your visit! We will plan to see you in 8 weeks for follow up. Please schedule follow-up with Advanced Practice Provider (Ailyn Bonner) by calling at contact no. [phone] or [phone] for appointment scheduling. You were referred to [...] questions or problems with your medications at [phone]. documented in this encounterDayton Va Medical Center03-04-2024 History of Present illness Narrative* Tremaine Landon [...] encounter. The patient chart reviewed in [facility] and history obtained/confirmed with patient. 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 She uses cane [...] cleaning, laundry but she has assigned a natural gas plant technician to help with cleaning. She drives without [...] as noted above. 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 Will continue to monitor need for RETICLE PRINTER and sleep medicine referral -Patient was educated on to gradual increase in activities as tolerated. -Continue use of cane/walker, follow fall precautions. I spent a total of 60 minutes on the date of the service which included preparing to see the patient, [id number] patient care, completing clinical documentation, performing a medically appropriate examination, counseling and educating the patient/family/caregiver, ordering medications, tests, or p rocedures and communicating results to the patient/family/caregiver. Tremaine Landon MD Physical Medicine & Rehab [facility] documented in this encounterDayton Va Medical Center03-04-2024 NoteHNO ID: [id number] Author: TREMAINE LANDON MD Service: ? Author [...] encounter. The patient chart reviewed in [facility] and history obtained/confirmed with patient. 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 She uses cane [...] cleaning, laundry but she has assigned a natural gas plant technician to help with cleaning. She drives without [...] pharmacy. Kailey Caraballo LPN documented in this encounterDayton Va Medical Center02-27-2024 Miscellaneous Notes* Telephone Encounter - Kassidy Peña [...] you. Kassidy Peña RN. documented in this encounterDayton Va Medical Center02-22-2024 Miscellaneous Notes* Telephone Encounter - Ute Gibbs RN - 10/29/2023 5:41 PM EST Spoke with patient. Given message from provider's office. Patient verbalizes understanding. Ute Gibbs RN * Telephone Encounter - Ken Whelan MD - 10/29/2023 5:36 PM EST Okay. [...] advise, Faby Sears RN documented in this encounterDayton Va Medical Center02-15-2024 History of Present illness Narrative* Michelle Reagan APRN.CNP - 10/22/2023 2:30 PM EST Images from the original note were not included. NEUROSURGERY FOLLOW UP OFFICE NOTE Michelle Reagan APRN.CNP Date of visit: October 22, 2023 Patient Name: Ms.Sally Barbie Nassar Date of : 1935 Current Age: [age] year old Sex: female MRN/E# [id number] Last Office Visit: Hospital follow-up CHIEF COMPLAINT: [...] transfer from an outside ED by Dr. Markham. Patient was seen after a fall in [...] Bronchiectasis without complication (HCC) 11/27/2009 Dr. Jaswant Luevano, pulmonary. DDD (degenerative disc disease), lumbar 02/16/2012 [...] routine visit. MIKEL Abernathy Neurosurgery [facility] FOLLOW UP: Return in about 3 months (around 01/20/2024) for routine visiit. Please Note: This note has been partially generated using [employer] a speech recognition software program, and may contain errors including punctuation, grammar, spelling, gender, and inappropriate words or phrases that pertain to the system. documented in this encounterDayton Va Medical Center02-15-2024 NoteHNO ID: [id number] Author: MICHELLE REAGAN APRN.CNP Service: ? Author Type: Nurse Practitioner Type: Progress Notes Filed: 10/22/2023 16:05 Note Text: NEUROSURGERY FOLLOW UP OFFICE NOTE Michelle Reagan APRN.CNP Date of visit: October 22, 2023 Patient Name: Ms.Sally Barbie Nassar Date of : 1935 Current Age: [age] year old Sex: female MRN/E# [id number] Last Office Visit: Hospital follow-up CHIEF COMPLAINT: Patient presents with: Established Patient HPI: The patient presents for a hospital follow up with imaging (CT B) for evaluation. This is an 88-year-old female with a PMHx of diverticulosis, HTN, PE, pacemaker, asthma, umbilical hernia, GERD, hypothyroidism, degenerative disc disease (lumbar) tubular adenoma of the colon who was seen for consult at [facility] on 10/03/2023 after transfer from an outside ED by Dr. Markham. Patient was seen after a fall in [...] Bronchiectasis without complication (HCC) 11/27/2009 Dr. Jaswant Luevano, pulmonary. DDD (degenerative disc disease), lumbar 02/16/2012 [...] PATIENT PRESENTS WITH AN IMPLANTABLE OR ATTACHED TIN PLATER: No RADIOLOGY DEPARTMENT: CT; Exam(s) Completed: Brain PERIPHERAL IV DATA: Not applicable SIGNED BY: RT Andrea(R) October 19, 2023 4:11 PM documented in this encounterDayton Va Medical Center02-07-2024 History of Present illness Narrative* Ken Whelan MD - 10/14/2023 1:03 PM EST This note was created using [employer]van[employer]. Subjective Patient presents with: Transition Of Care [...] and injuring her head. She wasevaluated in [facility] ER and transferred to [facility] due to bilateral SAH. Her aspirin [...] ordered. She had benefit from aquatherapy at [facility] a few years ago. She will call for order if she still felt weak after regular PT, OT. She had a walker at home. Ken Whelan MD documented in this encounterDayton Va Medical Center01-29-2024 NoteHNO ID: [id number] Author: IRIS BENOIT PA-C Service: General Surgery Author Type: Physician Web Content Specialist Type: Plan of Care Filed: 10/05/2023 13:45 Note Text: Trauma Surgery Plan of Care 10/05/2023 (10/05/2023, 1:45 PM): Met with patient earlier today and discussed code status. She stated that she thinks she has a DNR but would like to remain full code at this time per our discussion. Orders placed. Iris Benoit PA-C 10/05/2023 1:45 [facility]01-29-2024 NoteHNO ID: [id number] Author: IRIS BENOIT PA-C Service: General Surgery Author Type: Physician Web Content Specialist Type: Progress Notes Filed: 10/05/2023 10:21 Note Text: Trauma Surgery Progress Note SERVICE DATE: 10/05/2023 Trauma Service Pager: For questions or concerns Mon-Fri 6a-5p please page [phone]. After 5pm and on Weekends and Holidays, [...] Date 10/04/23 0700 - 10/05/23 0659 10/05/23 0700 - 10/06/23 0659 Shift 9975-4876 5256-6138 8445-3022 24 Hour Total 1133-8311 9027-3216 8612-7163 24 Hour Total INTAKE PO 560 560 [...] female s/p GLF on 10/02/2023 (Transfer from [employer]) Imaging performed: 10/02/2023 - CT [facility] 10/03/2023 [...] not included)...[facility] 10-05-2023 NoteHNO ID: [id number] Author: CORINA MARKHAM MD Service: Neurosurgery Author Type: Physician Type: Plan of Care Filed: 10/05/2023 07:21 Note Text: Study #[id number]: Traumatic Brain Injury Patient Registry PI: Corina Markham MD Visit: Eligibility check Inclusion Criteria Age 18-99: Yes Radiographic evidence of a TBI confirmatory head computed tomography (CT) : Yes Exclusion Criteria Gom-Hmrezuq-btbmurgx: No Age < 18 years of age: [...] 23-1248: Traumatic Brain Injury Patient Registry Corina Markham [facility]01-28-2024 NoteHNO ID: [id number] Author: ILENE VILLELA, DIONTE Service: Nursing Author Type: Registered Nurse Type: Progress Notes Filed: 10/04/2023 13:49 Note Text: Pt bladder scanned holding 230 cc, dr erazo notified, ordered to bladder scan at 1500 [facility]01-28-2024 NoteHNO ID: [id number] Author: WEN GALICIA MD Service: General Surgery Author Type: Physician Type: Progress Notes Filed: 10/04/2023 09:59 Note Text: Trauma Surgery Progress Note SERVICE DATE: 10/04/2023 Trauma Service Pager: For questions or concerns Mon-Fri 6a-5p please page [phone]. After 5pm and on Weekends and Holidays, please page [phone] if in ICU or [phone] if on RNF. SUBJECTIVE: Patient seen this [...] kg/m? O2 Therapy: Nasal Cannula IANDO: Date 10/03/23 07 - 10/04/23 0659 10/04/23 07 - 10/05/23 0659 Shift 2129-3902 8713-5203 3461-8218 24 Hour Total 6163-7451 5578-3513 1470-3179 24 Hour Total INTAKE PO 120 120 [...] pacemaker), prior cholecystectomy, STEPHON BSO presents from [employer] with traumatic scattered SAH status post GLF with Imaging performed: CT HN (10/03) Traumatic Injuries: Multiple bilateral parietal and frontoparietal cortical SAH, small focus within right temporal lobe. Operations/Procedures: 1. NA Care Plan: Scattered Traumatic SAH NSGY following Status post DDAVP in ED Cont to hold ASA and thinners [facility] from SICU Cont keppra 7 days [...] SIGNATURE: Nirmala Lauren DO PATIENT NAME: Geoffrey Amaral (more content not included)...[facility]01-27-2024 History [...] cor pulmonale 11/24/2016 12/29/2017 Overview: Dr. Jaswant Luevano, pulmonary. On home oxygen therapy 11/24/201606/24 Medicare [...] of this encounter (statuses as of 10/29/2023) [facility]01-[facility] History of Past illness Narrative* [...] cor pulmonale 11/24/2016 12/29/2017 Overview: Dr. Jaswant Luevano, pulmonary. On home oxygen therapy 11/24/201606/24 Medicare [...] of this encounter (statuses as of 11/04/2023) [facility]01-[facility] History of Past illness Narrative* [...] cor pulmonale 11/24/2016 12/29/2017 Overview: Dr. Jaswant Luevano, pulmonary. On home oxygen therapy 11/24/201606/24 Medicare [...] of this encounter (statuses as of 11/05/2023) [facility] History of Past illness Narrative* [...] cor pulmonale 11/24/2016 12/29/2017 Overview: Dr. Jaswant Luevano, pulmonary. On home oxygen therapy 11/24/201606/24 Medicare [...] of this encounter (statuses as of 11/10/2023) [facility] History of Past illness Narrative* [...] cor pulmonale 11/24/2016 12/29/2017 Overview: Dr. Jaswant Luevano, pulmonary. On home oxygen therapy 11/24/201606/24 Medicare [...] of this encounter (statuses as of 12/07/2023) [facility]01-24-[facility] Instructions* Patient Instructions* Dia Nixon, MANAGER PLAN.CHRISTMAS BELL RINGER - 09/30/2023 2:46 PM EST Screening schedule [...] review all the medicines you take, even idvz-jzg-ruuzwyz medicines. As you get older, the way [...] have certain medical conditions. documented in this encounterDayton Va Medical Center01-24-2024 History of Present illness Narrative* Dia Nixon, MANAGER PLAN.CHRISTMAS BELL RINGER - 09/30/2023 2:43 PM EST Geoffrey Nassar [...] Current care team: Patient Care Team: Ken Whelan MD as PCP - General (Internal Medicine) Outside specialists seen: Cardiology- Dr. Mcpherson, Pulmonology- Dr. Jaswant Luevano, Uro-gynecology- Dr. Hansen, Application Trainer-Dr. Jolly, High Lead Yarder-Dr. Neil Hawthorne, ophthalmology- [facility] [...] manageable and not affecting daily life. Bronchiectasis- bingo caller is Dr. Luevano with [facility]. Symptoms are stable. Using Breo Ellipta daily [...] - Counseled on low sodium diet Dia Nixon APRN.CHRISTMAS BELL RINGER documented in this encounterDayton Va Medical Center11-28-2023 History of Present illness Narrative* Bonnie Escobar [...] PERIPHERAL IV DATA: Not applicable SIGNED BY: Bonnie Escobar Claim Mapso Tech August 04, 2023 2:04 PM documented in this encounterDayton Va Medical Center10-31-2023 History of Present illness Narrative* William Zamudio Mammo Christophe - 07/07/2023 1:30 PM EDT Radiology [...] DATA: Not applicable SIGNED BY: William Zamudio Mammo Tech July 07, 2023 2:28 PM documented in this encounterDayton Va Medical Center09-14-2023 History of Present illness Narrative* Dia Thayer APRN.CHRISTMAS BELL RINGER - 05/21/2023 1:52 PM EDT Images from the original note were not included. CC: Patient presents with: ER F/U: 05/18/23 HPI Geoffrey Nassar is a 88 year old female who presents today for above. Patient presented to [facility] ER on05/18 with injury to face and [...] Bronchiectasis without complication (HCC) 11/27/2009 Dr. Jaswant Luevano, pulmonary. DDD (degenerative disc disease), lumbar 02/16/2012 [...] Mold, Penicillins, Shellfish, Spiriva With Handihaler [Tiotropium [place]], Sulfa (Sulfonamide Antibiotics), Symbicort [Budesonide-Formoterol], Tetanus Toxoid [...] is alert. DATA REVIEWED: Outside chart from [facility] ER reviewed. ASSESSMENT/PLAN: 1. Fall on same [...] plan. Dia Thayer APRN.CNP documented in this encounterDayton Va Medical Center08-22-2023 Miscellaneous Notes* Telephone Encounter - Cidny Pathak LPN - 04/28/2023 1:38 PM EDT Last office visit: 01/30/2023 Next appointment scheduled: 08/05/23 Last labs: 07/25/22 last vitamin d level Patient phones requesting refills as follows: Requested Prescriptions Pending Prescriptions Disp Refills ergocalciferol 50,000 unit capsule (VITAMIN D2, DRISDOL) 3 capsule 3 Sig: Take 1 capsule by mouth every 4 weeks. Cindy Pathak LPN documented in this encounterDayton Va Medical Center07-05-2023 Miscellaneous Notes* Telephone Encounter - Kailey Caraballo [...] you. Kailey Caraballo LPN documented in this encounterDayton Va Medical Center06-12-2023 Miscellaneous Notes* Telephone Encounter - Adelaida Almendarez LPN - 02/16/2023 3:42 PM EDT Patient calling said she has been trying to get refills on 4 rx from [facility] and told her on hold and would need all new rx. This nurse called [facility] and spoke to Gudelia and all [...] rx since not needed. documented in this encounterDayton Va Medical Center05-05-2023 Discharge summary Author Shad Hunter [facility] January 09, 2023 10:18pm Note Date/Time January 09, 2023 7:07pm [facility] Medical Records Department [address] [place] [address] Emergency Department Summary 01/09/23 MR#: [id number] Acct: [id number] Name: GEOFFREY NASSAR Rep #:[id number] : 1935 87 From: Arturo Greer MD PCP: Dr. Ken Whelan MD Status:R EG ER Location: ED HPI [...] feel sick or ill in any way. [facility] <Dr. Arturo Greer MD - Last Filed: 01/09/23 22:07> [facility] Medical History Acute respiratory failure with hypoxia [...] Greer MD - Last Filed: 01/09/23 22:07> [facility] Narrative Medical decision making narrative: My independent [...] Hunter MD - Last Filed: 01/09/23 22:18> MDM Radiography Diagnostic Testing: Clinical Impression(s) from Imaging [...] Qty: 60 6RF Primary Care Provider: Ken Whelan Referrals: Ken Wehlan MD [Primary Care Provider] - 3-5 Days if not improving Disposition Disposition: Home, Self Care What to do if you have Problems For any increased pain, shortness of breath, bleeding, nausea or vomiting, chestpain, or any unexpected problems, contact your Primary Care Provider. Call [facility] ([phone]) or report to the closest Emergency Room. Call 911 if necessary. 01/09/232207 <Electronically signed by Arturo Greer MD> Cosigner Signature (if applicable): 01/09/232217 <Electronically signed by Shad Hunter MD> CC: Dr. Ken Whelan MD ~ Signed [facility] Work Phone: 1(476) 674-663405-05-2023 History of Present illness Narrative* Jorge Jordan APRN.CHRISTMAS BELL RINGER - 01/09/2023 5:59 PM EDT Patient came [...] emergency room for evaluation. documented in this encounterDayton Va Medical Center04-25-2023 Miscellaneous Notes* Telephone Encounter - Pushpa Murphy RN - 12/30/2022 3:08 PM EDT Pt is using [facility]. Phone number is . Patient has been identified by name and date of : Yes, Provider Ben Date 12/30/22 Time 1518 Patient phones for refill(s): Requested Prescriptions Pending [...] were sent to the mail service pharmacy [facility] which was the wrong pharmacy. This is an independent pharmacy [phone]. When I called they they told me [...] FYI: pt had a phone number for [facility] pharmacy which is [employer] and she no longer has [employer]. Laurence Torres LPN : documented in this encounterCleveland [id number] Miscellaneous Notes* Telephone Encounter - Laurence Torres LPN - 12/30/2022 2:52 PM EDT This message has been closed and there is a phone encounter dated 12-30-22. Laurence Torres LPN documented in this encounterDayton Va Medical Center04-05-2023 Miscellaneous Notes* Telephone Encounter - Anny Frye LPN - 12/10/2022 11:15 AM EDT Patient states that the medication was sent to the wrong pharmacy. Asking that the amlodipine and lisinopril be sent to [facility] in [place]. Orders pended. documented in this encounterDayton Va Medical Center04-03-2023 Miscellaneous Notes* Telephone Encounter - Dia Thayer APRN.CNP - 12/08/2022 12:56 PM EDT PDMP website checked and validated. All prescriptions have been APPROPRIATELY filled. No suspiciousactivity was identified. 12/08/2022 by Dia Thayer APRN.CNP * Telephone Encounter - Saida Sepulveda Ma - 12/08/2022 12:24 PM EDT [facility]: 08/01/2022 Last refill: 09/12/2022 QTY: 30 Refills: 2 Patient's request for medication is as follows: Requested Prescriptions Pending Prescriptions Disp Refills LORazepam (ATIVAN) 2 mg tab 30 tablet 2 Sig: Take 1 tablet by mouth daily at bedtime for 90 days. Please approve the above prescription(s) to electronically send to pharmacy. Saida Sepulveda Ma documented in this encounterDayton Va Medical Center04-03-2023 Miscellaneous Notes* Telephone Encounter - Adelaida Almendarez LPN - 12/08/2022 11:26 AM EDT Patient calling asking about Lisinopril and Amlodipine rx. computer shows rx was sent on 11/17/2022 so she should not need new rx.Patient is calling [facility] pharmacy to find out what is going on, shezoraidad never gotten the rx yet. documented in this encounterDayton Va Medical Center03-13-2023 Miscellaneous Notes* Telephone Encounter - Cindy Pathak [...] advise. Cindy Pathak LPN documented in this encounterDayton Va Medical Center02-25-2023 Miscellaneous Notes* Telephone Encounter - Seema Florence LPN - 11/01/2022 9:50 AM EST Patient aware letter ready and requesting be sent to her in the mail. Letter ready to be mailed on Thursday11/03/2022. Seema Florence LPN * Telephone Encounter - Ken Whelan MD - 10/31/2022 5:26 PM EST Letter printed. * Telephone Encounter - Norma Wong RN - 10/30/2022 4:09 PM EST Pt calling and asking if PCP will complete a renewal for handicap placard for her. Please call pt once ready for apple picker. Thank you. documented in this encounterDayton Va Medical Center01-11-2023 Miscellaneous Notes* Addendum Note - Dia Thayer APRN.CNP - 09/17/2022 5:28 PM ESTAddended by: DIA THAYER on: 09/17/2022 05:28 PM Modules accepted: Orders * Addendum Note - Saida Sepulveda Ma - 09/17/2022 5:22 PM ESTAddended by: SAIDA SEPULVEDA MA on: 09/17/2022 05:22 PM Modules accepted: Orders * Telephone Encounter - Saida Sepulveda Ma - 09/17/2022 3:11 PM EST Please send to pended pharmacy. * Telephone Encounter - Yvonne Bee Pss - 09/17/2022 2:55 PM EST [employer] phone # [phone] * Telephone Encounter - Kailey Caraballo LPN - 09/16/2022 2:11 PM EST Spoke to Geoffrey, she is going to call Railroad Operating Engineer to verify. Will call back & ask to speak to a nurse. Kailey Caraballo LPN * Telephone Encounter - Dia Thayer APRN.CNP - 09/16/2022 9:37 AM EST [facility] is a [facility] in [place], [place], is this the one she is referring to? Dia Thayer APRN.BERTHA * Telephone Encounter - Deidre West LPN - 09/15/2022 4:03 PM EST Pt calls to report she has a new mail-in pharmacy: [facility]. Pt reports she needs new rx faxed to: [phone]. Could not find [facility] in [place]. Pt reports phone # [phone]. Rx set to print. Patient has been [...] patient. Deidre West LPN documented in this encounterDayton Va Medical Center11-25-2022 History of Present illness Narrative* Ken Whelan MD - 08/01/2022 3:01 PM EST This note was created using [employer]van[employer]. Subjective Geoffrey Nassar is a 87 year [...] 599.0, ICD10: N39.[address] Hansen. Ken Whelan MD * Ken Whelan MD - 08/01/2022 2:51 PM EST Geoffrey Nassar is a 87 year old female here for a Medicare Subsequent Annual Wellness Visit Health Risk Assessment In general, health is: Good Concerns with tiredness, difficulties with sexual function, balance, teeth/dentures: Not at all [place] anxious, stressed, angry, irritable, lonely, isolated, or [...] Current care team: Patient Care Team: Ken Whelan MD as PCP - General (Internal Medicine) Outside specialists seen: Dr. Christi Hansen, gyne urologist. Dr. Aron Javed, cardiology. Dr. Jaswant Luevano, pulmonary. Dr. Gee Hawthorne, dermatology. Dr. Izabel [...] kg/(m^2) - Fall avoidance documented in this encounterDayton Va Medical Center11-11-2022 Miscellaneous Notes* Telephone Encounter - Christin Moreland Ma - 07/18/2022 3:38 PM EST Last OV: 06/19/22 Next OV:08/01/22 documented in this encounterDayton Va Medical Center11-08-2022 Instructions* Patient Instructions* Geoff Carlos MD - 07/15/2022 2:30 PM EST Current Ophthalmic Meds brimonidine-timolol (COMBIGAN) 0.2-0.5 % ophthalmic solution Use 1 Drop in the left eye twice daily. latanoprost (XALATAN) 0.005 % ophthalmic solution Use 1 Drop in both eyes daily at bedtime. Plan Canaloplasty/Trabeculotomy with the Omni surgical system Left Eye on 08/18/2022 at [facility]. If you have any questions please contact our office at [phone]. After office hours or on the weekend, please call Dr. Carlos on his cell phone at [phone]. documented in this encounterDayton Va Medical Center11-08-2022 History of Present illness Narrative* Geoff Carlos [...] surgical system Left Eye on 08/18/2022 at [facility]. PHYSICAL EXAM: Vital Signs: Blood pressure [...] diagnosis, and treatment options. documented in this encounterDayton Va Medical Center10-29-2022 History of Present illness Narrative* Misael Cooley [...] Bronchiectasis without complication (HCC) 11/27/2009 Dr. Jaswant Luevano, pulmonary. DDD (degenerative disc disease), lumbar 02/16/2012 [...] 06/30/2022 Negative Ketones, Urine 06/30/2022 Negative Specific [place], Ur 06/30/2022 1.010 Hemoglobin/Blood,Ur 06/30/2022 Negative pH, [...] Dr Tyrone Cooley MD documented in this encounterDayton Va Medical Center10-27-2022 Miscellaneous Notes* Telephone Encounter - Yessenia Perez LPN - 07/03/2022 9:06 AM EDT Electronic PA completed for Sig: Take 1 Packet by mouth one time only for 1 dose. Sent to pharmacy as: fosfomycin (MONUROL) 3 g pack This was approved Authorized from September 07, 2021 to September 06, 2023 Information received electronically from payer Pharmacy notified. documented in this encounterDayton Va Medical Center10-26-2022 Miscellaneous Notes* Telephone Encounter - Shayla Nguyen [...] days after treatment. Thank you Jennifer Thayer APRN.CNP * Telephone Encounter - Norma Wong RN [...] hasn't taken it since. Requesting [facility] in [place]. Please call patient with update. Thank you. [...] computer already. Please advise documented in this encounterDayton Va Medical Center10-17-2022 Miscellaneous Notes* Telephone Encounter - Sylvie Robertson [...] please send results to Dr. Hansen with [facility] as patient had requested this during her visit. Thank you Jennifer Thayer APRN.CNP documented in this encounterDayton Va Medical Center10-13-2022 History of Present illness Narrative* Jennifer Thayer [...] plan. Jennifer Thayer APRN.CNP documented in this encounterDayton Va Medical Center09-26-2022 Miscellaneous Notes* Telephone Encounter - Kailey Caraballo [...] you. Kailey Caraballo LPN documented in this encounterDayton Va Medical Center09-21-2022 Miscellaneous Notes* Telephone Encounter - Kailey Caraballo [...] provider would send and antibiotic in to [facility] in [place]. I told her provider may need to see her in the office. Please call and advise. documented in this encounterDayton Va Medical Center09-01-2022 Miscellaneous Notes* Telephone Encounter - Ute Gibbs RN - 05/08/2022 6:09 PM EDT Spoke with patient. Given message from provider's office. Patient verbalizes understanding. Patientstates she is travelling by plane and will try to schedule with ENT tomorrow. Ute Gibbs RN * Telephone Encounter - Ken Whelan MD - 05/08/2022 5:28 PM EDT Either [...] she needs another antibiotic? She called her Door Clamp Operator and was told to call her PCP. Patient uses [facility] for her pharmacy if needed. Please advise documented in this encounterDayton Va Medical Center08-31-2022 Miscellaneous Notes* Telephone Encounter - Dia Thayer APRN.CNP - 05/07/2022 5:30 PM EDT PDMP website checked and validated. All prescriptions have been APPROPRIATELY filled. No suspiciousactivity was identified. 05/07/2022 by Dia Thayer APRN.CNP * Telephone Encounter - Saida Sepulveda Ma - 05/07/2022 4:54 PM EDT [facility]: 04/11/2022 Last refill: 01/10/2022 QTY: 30 Refills: 3 documented in this encounterDayton Va Medical Center08-05-2022 Miscellaneous Notes* Telephone Encounter - Kassidy Peña [...] itch. Sinus pressure and congestion. Protocols used: [id number]-IQ documented in this encounterDayton Va Medical Center07-06-2022 Instructions* Patient Instructions* Geoff Carlos MD - 03/12/2022 3:55 PM EDT Current Ophthalmic Meds brimonidine-timolol (COMBIGAN) 0.2-0.5 % ophthalmic solution Use 1 Drop in the left eye twice daily. latanoprost (XALATAN) 0.005 % ophthalmic solution Use 1 Drop in both eyes daily at bedtime. If you have any questions please contact our office at [phone]. After office hours or on the weekend, please call Dr. Carlos on his cell phone at [phone]. documented in this encounterDayton Va Medical Center07-06-2022 History of Present illness Narrative* Geoff Carlos [...] to monitor with primary care physician. Geoff Calros MD I have confirmed and edited as [...] diagnosis, and treatment options. documented in this encounterDayton Va Medical Center06-06-2022 Miscellaneous Notes* Telephone Encounter - Zane Jack [...] notify patient. Zane Jack documented in this encounterDayton Va Medical Center05-19-2022 History of Present illness Narrative* Shakira Vazquez [...] IV DATA: Not applicable SIGNED BY: RT Rogerio(Barbie) January 23, 2022 2:56 PM documented in this encounterDayton Va Medical Center05-19-2022 History of Present illness Narrative* Ken Whelan MD - 01/23/2022 1:54 PM EDT This note was created using [employer]. Subjective Geoffrey Nassar is a 86 year old female. 1.5 weeks ago, she had 2 episodes of sharp LUQ pain lastingseconds, moderately severe, only when laying down, without other associated symptoms. She sees Dr. Jaswant Luevano in a few weeks. She wondered if [...] ICD10: J47.[address] Aniyah Luevano. 4. Essential hypertension - ICD9: 401.9, ICD10: [...] - ICD9: V10.83, ICD10: Z85.828 Noted. Ken Whelan MD documented in this encounterDayton Va Medical Center05-03-2022 History of Present illness Narrative* Ria Matamoros DO - 01/07/2022 11:22 AM EDT This office note has been dictated. 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 Presence of cardiac pacemaker May, acute Sick sinus syndrome acute Sinus bradycardia [facility] Work Phone: 1(952) 481-859509-01-2021 Evaluation note* Diagnosis Onset Date Resolution Status 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 Presence of cardiac pacemaker May, acute Sick sinus syndrome acute Sinus bradycardia acute Asthma acute [facility] Work Phone: 1(398) 204-532709-01-2021 Evaluation note* Diagnosis Onset Date Resolution Status 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 Presence of cardiac pacemaker May, acute Sick sinus syndrome acute Sinus bradycardia acute [facility] Work Phone: 1(836) 629-844509-01-2021 Evaluation note* Diagnosis Onset Date Resolution Status 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 Presence of cardiac pacemaker May, acute Sick sinus syndrome acute Sinus bradycardia acute 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 Essential hypertension acute Presence of cardiac pacemaker May, acute Sinus bradycardia acute [facility] Work Phone: 1(241) 293-437509-01-2021 Evaluation note* Diagnosis Onset Date Resolution Status Admit Date Chronotropic incompetence with sinus node dysfunction acute March 31, 2025 1:26pm Essential hypertension acute Ju 2024 1:26pm Presence of cardiac pacemaker May, edgard rodrigueze March 31, 2025 1:26pm [facility] Work Phone: 1(455) 423-845908-13-2021 History of Past illness Narrative* Problem Noted Date Resolved Date 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04/07 Conjunctivitis 11/06/2020 04/24/2021 Pseudophakia, both eyes 07/23/2020 04/24/20 Glaucoma suspect of both eyes 05/01/2020 Narrow angle glaucoma suspect of both eyes 05/0104/24/2021 Pain in right hip 08/05/2017 09/30/2017 Gait disturbance 01/29/2017 06/24/2017 Pulmonary nodule 01/08/2017 09/30/2017 Anticoagulated 11/25/2016 09/30/2017 Pulmonary embolism with acute cor pulmonale 11/0612/29/2017 Overview: Dr. Jaswant Luevano, pulmonary. On home oxygen therapy 11/24/2016 7 [...] of this encounter (statuses as of 12/02/2021) [facility]08-13-[facility] of Past illness Narrative* Problem Noted Date Resolved Date 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04/07 Conjunctivitis 11/06/2020 04/24/2021 Pseudophakia, both eyes 07/23/2020 04/24/20 Glaucoma suspect of both eyes 05/01/2020 Narrow angle glaucoma suspect of both eyes 05/0104/24/2021 Pain in right hip 08/05/2017 09/30/2017 Gait disturbance 01/29/2017 06/24/2017 Pulmonary nodule 01/08/2017 09/30/2017 Anticoagulated 11/25/2016 09/30/2017 Pulmonary embolism with acute cor pulmonale 11/0612/29/2017 Overview: Dr. Jaswant Luevano, pulmonary. On home oxygen therapy 11/24/2016 7 [...] of this encounter (statuses as of 01/07/2022) [facility] of Past illness Narrative* Problem Noted Date Resolved Date 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04/07 Conjunctivitis 11/06/2020 04/24/2021 Pseudophakia, both eyes 07/23/2020 04/24/20 Glaucoma suspect of both eyes 05/01/2020 Narrow angle glaucoma suspect of both eyes 05/0104/24/2021 Pain in right hip 08/05/2017 09/30/2017 Gait disturbance 01/29/2017 06/24/2017 Pulmonary nodule 01/08/2017 09/30/2017 Anticoagulated 11/25/2016 09/30/2017 Pulmonary embolism with acute cor pulmonale 11/0612/29/2017 Overview: Dr. Jaswant Luevano, pulmonary. On home oxygen therapy 11/24/2016 7 [...] of this encounter (statuses as of 01/10/2022) [facility] of Past illness Narrative* Problem Noted Date Resolved Date 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04/07 Conjunctivitis 11/06/2020 04/24/2021 Pseudophakia, both eyes 07/23/2020 04/24/20 Glaucoma suspect of both eyes 05/01/2020 Narrow angle glaucoma suspect of both eyes 05/0104/24/2021 Pain in right hip 08/05/2017 09/30/2017 Gait disturbance 01/29/2017 06/24/2017 Pulmonary nodule 01/08/2017 09/30/2017 Anticoagulated 11/25/2016 09/30/2017 Pulmonary embolism with acute cor pulmonale 11/0612/29/2017 Overview: Dr. Jaswant Luevano, pulmonary. On home oxygen therapy 11/24/2016 7 [...] of this encounter (statuses as of 01/23/2022) [facility] of Past illness Narrative* Problem Noted Date Resolved Date 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04/07 Conjunctivitis 11/06/2020 04/24/2021 Pseudophakia, both eyes 07/23/2020 04/24/20 Glaucoma suspect of both eyes 05/01/2020 Narrow angle glaucoma suspect of both eyes 05/0104/24/2021 Pain in right hip 08/05/2017 09/30/2017 Gait disturbance 01/29/2017 06/24/2017 Pulmonary nodule 01/08/2017 09/30/2017 Anticoagulated 11/25/2016 09/30/2017 Pulmonary embolism with acute cor pulmonale 11/0612/29/2017 Overview: Dr. Jaswant Luevano, pulmonary. On home oxygen therapy 11/24/2016 7 [...] of this encounter (statuses as of 02/10/2022) [facility] of Past illness Narrative* Problem Noted Date Resolved Date 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04/07 Conjunctivitis 11/06/2020 04/24/2021 Pseudophakia, both eyes 07/23/2020 04/24/20 Glaucoma suspect of both eyes 05/01/2020 Narrow angle glaucoma suspect of both eyes 05/0104/24/2021 Pain in right hip 08/05/2017 09/30/2017 Gait disturbance 01/29/2017 06/24/2017 Pulmonary nodule 01/08/2017 09/30/2017 Anticoagulated 11/25/2016 09/30/2017 Pulmonary embolism with acute cor pulmonale 11/0612/29/2017 Overview: Dr. Jaswant Luevano, pulmonary. On home oxygen therapy 11/24/2016 7 [...] of this encounter (statuses as of 03/12/2022) [facility] of Past illness Narrative* Problem Noted Date Resolved Date 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04/07 Conjunctivitis 11/06/2020 04/24/2021 Pseudophakia, both eyes 07/23/2020 04/24/20 Glaucoma suspect of both eyes 05/01/2020 Narrow angle glaucoma suspect of both eyes 05/0104/24/2021 Pain in right hip 08/05/2017 09/30/2017 Gait disturbance 01/29/2017 06/24/2017 Pulmonary nodule 01/08/2017 09/30/2017 Anticoagulated 11/25/2016 09/30/2017 Pulmonary embolism with acute cor pulmonale 11/0612/29/2017 Overview: Dr. Jaswant Luevano, pulmonary. On home oxygen therapy 11/24/2016 7 [...] of this encounter (statuses as of 04/11/2022) [facility] of Past illness Narrative* Problem Noted Date Resolved Date 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04/07 Conjunctivitis 11/06/2020 04/24/2021 Pseudophakia, both eyes 07/23/2020 04/24/20 Glaucoma suspect of both eyes 05/01/2020 Narrow angle glaucoma suspect of both eyes 05/0104/24/2021 Pain in right hip 08/05/2017 09/30/2017 Gait disturbance 01/29/2017 06/24/2017 Pulmonary nodule 01/08/2017 09/30/2017 Anticoagulated 11/25/2016 09/30/2017 Pulmonary embolism with acute cor pulmonale 11/0612/29/2017 Overview: Dr. Jasawnt Luevano, pulmonary. On home oxygen therapy 11/24/2016 7 [...] of this encounter (statuses as of 04/16/2022) [facility] of [facility] illness Narrative* Problem Noted Date Resolved Date 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04/07 Conjunctivitis 11/06/2020 04/24/2021 Pseudophakia, both eyes 07/23/2020 04/24/20 Glaucoma suspect of both eyes 05/01/2020 Narrow angle glaucoma suspect of both eyes 05/0104/24/2021 Pain in right hip 08/05/2017 09/30/2017 Gait disturbance 01/29/2017 06/24/2017 Pulmonary nodule 01/08/2017 09/30/2017 Anticoagulated 11/25/2016 09/30/2017 Pulmonary embolism with acute cor pulmonale 11/0612/29/2017 Overview: Dr. Jaswant Luevano, pulmonary. On home oxygen therapy 11/24/2016 7 [...] of this encounter (statuses as of 05/07/2022) [facility]-13-2021 History of Past illness Narrative* Problem Noted Date Resolved Date 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04/07 Conjunctivitis 11/06/2020 04/24/2021 Pseudophakia, both eyes 07/23/2020 04/24/20 Glaucoma suspect of both eyes 05/01/2020 Narrow angle glaucoma suspect of both eyes 05/0104/24/2021 Pain in right hip 08/05/2017 09/30/2017 Gait disturbance 01/29/2017 06/24/2017 Pulmonary nodule 01/08/2017 09/30/2017 Anticoagulated 11/25/2016 09/30/2017 Pulmonary embolism with acute cor pulmonale 11/0612/29/2017 Overview: Dr. Jaswant Luevano, pulmonary. On home oxygen therapy 11/24/2016 7 [...] of this encounter (statuses as of 05/08/2022) [facility] History of Past illness Narrative* Problem Noted Date Resolved Date 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04/07 Conjunctivitis 11/06/2020 04/24/2021 Pseudophakia, both eyes 07/23/2020 04/24/20 Glaucoma suspect of both eyes 05/01/2020 Narrow angle glaucoma suspect of both eyes 05/0104/24/2021 Pain in right hip 08/05/2017 09/30/2017 Gait disturbance 01/29/2017 06/24/2017 Pulmonary nodule 01/08/2017 09/30/2017 Anticoagulated 11/25/2016 09/30/2017 Pulmonary embolism with acute cor pulmonale 11/0612/29/2017 Overview: Dr. Jaswant Luevano, pulmonary. On home oxygen therapy 11/24/2016 7 [...] of this encounter (statuses as of 05/28/2022) [facility] History of Past illness Narrative* Problem Noted Date Resolved Date 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04/07 Conjunctivitis 11/06/2020 04/24/2021 Pseudophakia, both eyes 07/23/2020 04/24/20 Glaucoma suspect of both eyes 05/01/2020 Narrow angle glaucoma suspect of both eyes 05/0104/24/2021 Pain in right hip 08/05/2017 09/30/2017 Gait disturbance 01/29/2017 06/24/2017 Pulmonary nodule 01/08/2017 09/30/2017 Anticoagulated 11/25/2016 09/30/2017 Pulmonary embolism with acute cor pulmonale 11/0612/29/2017 Overview: Dr. Jaswant Luevano, pulmonary. On home oxygen therapy 11/24/2016 7 [...] of this encounter (statuses as of 06/03/2022) [facility] History of Past illness Narrative* Problem Noted Date Resolved Date 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04/07 Conjunctivitis 11/06/2020 04/24/2021 Pseudophakia, both eyes 07/23/2020 04/24/20 Glaucoma suspect of both eyes 05/01/2020 Narrow angle glaucoma suspect of both eyes 05/0104/24/2021 Pain in right hip 08/05/2017 09/30/2017 Gait disturbance 01/29/2017 06/24/2017 Pulmonary nodule 01/08/2017 09/30/2017 Anticoagulated 11/25/2016 09/30/2017 Pulmonary embolism with acute cor pulmonale 11/0612/29/2017 Overview: Dr. Jaswant Luevano, pulmonary. On home oxygen therapy 11/24/2016 7 [...] of this encounter (statuses as of 06/18/2022) [facility] History of Past illness Narrative* Problem Noted [...] acute cor pulmonale 11/0612/29/2017 Overview: Dr. Jaswant Luevano, pulmonary. On home oxygen therapy 11/24/2016 7 [...] of this encounter (statuses as of 06/19/2022) [facility] History of Past illness Narrative* Problem Noted [...] acute cor pulmonale 11/0612/29/2017 Overview: Dr. Jaswant Luevano, pulmonary. On home oxygen therapy 11/24/2016 7 [...] of this encounter (statuses as of 06/23/2022) [facility] History of Past illness Narrative* Problem Noted [...] acute cor pulmonale 11/0612/29/2017 Overview: Dr. Jaswant Luevano, pulmonary. On home oxygen therapy 11/24/2016 7 [...] of this encounter (statuses as of 07/02/2022) [facility] History of Past illness Narrative* Problem Noted [...] acute cor pulmonale 11/0612/29/2017 Overview: Dr. Jaswant Luevano, pulmonary. On home oxygen therapy 11/24/2016 7 [...] of this encounter (statuses as of 07/03/2022) [facility] History of Past illness Narrative* Problem Noted Date Resolved Date 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04/07 Conjunctivitis 11/06/2020 04/24/2021 Pseudophakia, both eyes 07/23/2020 04/24/20 Glaucoma suspect of both eyes 05/01/2020 Narrow angle glaucoma suspect of both eyes 05/0104/24/2021 Pain in right hip 08/05/2017 09/30/2017 Gait disturbance 01/29/2017 06/24/2017 Pulmonary nodule 01/08/2017 09/30/2017 Anticoagulated 11/25/2016 09/30/2017 Pulmonary embolism with acute cor pulmonale 11/0612/29/2017 Overview: Dr. Jaswant Luevano, pulmonary. On home oxygen therapy 11/24/2016 7 [...] of this encounter (statuses as of 07/05/2022) [facility] History of Past illness Narrative* Problem Noted Date Resolved Date 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04/07 Conjunctivitis 11/06/2020 04/24/2021 Pseudophakia, both eyes 07/23/2020 04/24/20 Glaucoma suspect of both eyes 05/01/2020 Narrow angle glaucoma suspect of both eyes 05/0104/24/2021 Pain in right hip 08/05/2017 09/30/2017 Gait disturbance 01/29/2017 06/24/2017 Pulmonary nodule 01/08/2017 09/30/2017 Anticoagulated 11/25/2016 09/30/2017 Pulmonary embolism with acute cor pulmonale 11/0612/29/2017 Overview: Dr. Jaswant Luevano, pulmonary. On home oxygen therapy 11/24/2016 7 [...] of this encounter (statuses as of 07/16/2022) [facility] History of Past illness Narrative* Problem Noted Date Resolved Date 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04/07 Conjunctivitis 11/06/2020 04/24/2021 Pseudophakia, both eyes 07/23/2020 04/24/20 Glaucoma suspect of both eyes 05/01/2020 Narrow angle glaucoma suspect of both eyes 05/0104/24/2021 Pain in right hip 08/05/2017 09/30/2017 Gait disturbance 01/29/2017 06/24/2017 Pulmonary nodule 01/08/2017 09/30/2017 Anticoagulated 11/25/2016 09/30/2017 Pulmonary embolism with acute cor pulmonale 11/0612/29/2017 Overview: Dr. Jaswant Luevano, pulmonary. On home oxygen therapy 11/24/2016 7 [...] of this encounter (statuses as of 07/21/2022) [facility] History of Past illness Narrative* Problem Noted [...] acute cor pulmonale 11/0612/29/2017 Overview: Dr. Jaswant Luevano, pulmonary. On home oxygen therapy 11/24/2016 7 [...] of this encounter (statuses as of 08/01/2022) [facility] History of Past illness Narrative* Problem Noted [...] acute cor pulmonale 11/0612/29/2017 Overview: Dr. Jaswant Luevano, pulmonary. On home oxygen therapy 11/24/2016 7 [...] of this encounter (statuses as of 09/17/2022) [facility] History of Past illness Narrative* Problem Noted [...] acute cor pulmonale 11/0612/29/2017 Overview: Dr. Jaswant Luevano, pulmonary. On home oxygen therapy 11/24/2016 7 [...] of this encounter (statuses as of 10/31/2022) [facility] History of Past illness Narrative* Problem Noted [...] acute cor pulmonale 11/0612/29/2017 Overview: Dr. Jaswant Luevano, pulmonary. On home oxygen therapy 11/24/2016 7 [...] of this encounter (statuses as of 11/01/2022) [facility] History of Past illness Narrative* Problem Noted [...] acute cor pulmonale 11/0612/29/2017 Overview: Dr. Jaswant Luevano, pulmonary. On home oxygen therapy 11/24/2016 7 [...] of this encounter (statuses as of 11/17/2022) [facility] History of Past illness Narrative* Problem Noted [...] acute cor pulmonale 11/0612/29/2017 Overview: Dr. Jaswant Luevano, pulmonary. On home oxygen therapy 11/24/2016 7 [...] of this encounter (statuses as of 12/08/2022) [facility] History of Past illness Narrative* Problem Noted [...] acute cor pulmonale 11/0612/29/2017 Overview: Dr. Jaswant Luevano, pulmonary. On home oxygen therapy 11/24/2016 7 [...] of this encounter (statuses as of 12/08/2022) [facility] History of Past illness Narrative* Problem Noted [...] acute cor pulmonale 11/0612/29/2017 Overview: Dr. Jaswant Luevano, pulmonary. On home oxygen therapy 11/24/2016 7 [...] of this encounter (statuses as of 12/10/2022) [facility] History of Past illness Narrative* Problem Noted [...] acute cor pulmonale 11/0612/29/2017 Overview: Dr. Jaswant Luevano, pulmonary. On home oxygen therapy 11/24/2016 7 [...] of this encounter (statuses as of 12/31/2022) [facility] History of Past illness Narrative* Problem Noted [...] acute cor pulmonale 11/0612/29/2017 Overview: Dr. Jaswant Luevano, pulmonary. On home oxygen therapy 11/24/2016 7 [...] of this encounter (statuses as of 12/31/2022) [facility] History of Past illness Narrative* Problem Noted [...] acute cor pulmonale 11/0612/29/2017 Overview: Dr. Jaswant Luevano, pulmonary. On home oxygen therapy 11/24/2016 7 [...] of this encounter (statuses as of 01/10/2023) [facility] History of Past illness Narrative* Problem Noted [...] acute cor pulmonale 11/0612/29/2017 Overview: Dr. Jaswant Luevano, pulmonary. On home oxygen therapy 11/24/2016 7 [...] of this encounter (statuses as of 02/09/2023) [facility] History of Past illness Narrative* Problem Noted [...] acute cor pulmonale 11/0612/29/2017 Overview: Dr. Jaswant Luevano, pulmonary. On home oxygen therapy 11/24/2016 7 [...] of this encounter (statuses as of 02/17/2023) [facility] History of Past illness Narrative* Problem Noted [...] acute cor pulmonale 11/0612/29/2017 Overview: Dr. Jaswant Luevano, pulmonary. On home oxygen therapy 11/24/2016 7 [...] of this encounter (statuses as of 03/11/2023) [facility] History of Past illness Narrative* Problem Noted [...] cor pulmonale 11/24/2016 12/29/2017 Overview: Dr. Jaswant Luevano, pulmonary. On home oxygen therapy 11/24/201606/24 Medicare [...] of this encounter (statuses as of 04/29/2023) [facility] History of Past illness Narrative* Problem Noted [...] acute cor pulmonale 11/24/2016 12/29/2017 Overview: Dr. Jawsant Luevano, pulmonary. On home oxygen therapy 11/24/201606/24 Medicare [...] of this encounter (statuses as of 05/21/2023) [facility] History of Past illness Narrative* Problem Noted [...] cor pulmonale 11/24/2016 12/29/2017 Overview: Dr. Jaswant Luevano, pulmonary. On home oxygen therapy 11/24/201606/24 Medicare [...] of this encounter (statuses as of 07/09/2023) [facility] History of Past illness Narrative* Problem Noted [...] cor pulmonale 11/24/2016 12/29/2017 Overview: Dr. Jaswant Luevano, pulmonary. On home oxygen therapy 11/24/201606/24 Medicare [...] of this encounter (statuses as of 07/11/2023) [facility] History of Past illness Narrative* Problem Noted [...] cor pulmonale 11/24/2016 12/29/2017 Overview: Dr. Jaswant Luevano, pulmonary. On home oxygen therapy 11/24/201606/24 Medicare [...] of this encounter (statuses as of 08/05/2023) [facility] History of Past illness Narrative* Problem Noted [...] cor pulmonale 11/24/2016 12/29/2017 Overview: Dr. Jaswant Luevano, pulmonary. On home oxygen therapy 11/24/201606/24 Medicare [...] of this encounter (statuses as of 08/05/2023) [facility] History of Past illness Narrative* Problem Noted [...] cor pulmonale 11/24/2016 12/29/2017 Overview: Dr. Jaswant Luevano, pulmonary. On home oxygen therapy 11/24/201606/24 Medicare [...] of this encounter (statuses as of 10/12/2023) [facility] History of Past illness Narrative* Problem Noted [...] cor pulmonale 11/24/2016 12/29/2017 Overview: Dr. Jaswant Luevano, pulmonary. On home oxygen therapy 11/24/201606/24 Medicare [...] of this encounter (statuses as of 10/14/2023) [facility] History of Past illness Narrative* Problem Noted [...] cor pulmonale 11/24/2016 12/29/2017 Overview: Dr. Jaswant Luevano, pulmonary. On home oxygen therapy 11/24/201606/24 Medicare [...] of this encounter (statuses as of 10/20/2023) [facility] History of Past illness Narrative* Problem Noted [...] cor pulmonale 11/24/2016 12/29/2017 Overview: Dr. Jaswant Luevano, pulmonary. On home oxygen therapy 11/24/201606/24 Medicare [...] of this encounter (statuses as of 10/22/2023) [facility] Diagnosis Venous (peripheral) insufficiency- Primary Unspecified venous (peripheral) insufficiency [facility] Diagnosis Pleurisy- Primary Pleurisy without mention [...] neoplasm of skin [facility] Diagnosis Primary open angle glaucoma (POAG) of both eyes, mild stage- Primary 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, bilateral, intermediate dry stage Essential hypertension Unspecified essential hypertension [facility] Diagnosis Anxiety Anxiety state, unspecified [facility] Diagnosis Enthesopathy of right hip region Osteoarthritis, unspecified osteoarthritis type, unspecified site DDD (degenerative disc disease), lumbar Degeneration of lumbar or lumbosacral intervertebral disc [facility] Diagnosis Urinary tract infection without hematuria, site unspecified- Primary Dysuria [facility] Diagnosis Recurrent UTI (urinary tract infection)- Primary Urinary tract infection, site not specified [facility] Diagnosis Recurrent UTI- Primary Urinary tract infection, site not specified [facility] Diagnosis Recurrent UTI Urinary tract infection, site not specified [facility] Diagnosis Primary open angle glaucoma (POAG) of both eyes, mild stage- Primary 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, bilateral, intermediate dry stage Essential hypertension Unspecified essential hypertension [facility] Diagnosis Gastroesophageal reflux disease with esophagitis Primary open angle glaucoma (POAG) of left eye, mild stage [facility] Diagnosis Medicare annual wellness visit, subsequent- [...] eye, mild stage [facility]* Diagnosis DDD (degenerative disc disease), lumbar Degeneration of lumbar or lumbosacral intervertebral disc Depressive disorder w/ seasonal affective disorder Depressive disorder, not elsewhere classified Acquired hypothyroidism Unspecified hypothyroidism Enthesopathy of right hip region Osteoarthritis, unspecified osteoarthritis type, unspecified site Gastroesophageal reflux disease with esophagitis Anxiety Anxiety state, unspecified [facility] Diagnosis DDD (degenerative disc disease), lumbar Degeneration of lumbar or lumbosacral intervertebral disc Depressive disorder w/ seasonal affective disorder Depressive disorder, not elsewhere classified Acquired hypothyroidism Unspecified hypothyroidism Enthesopathy of right hip region Osteoarthritis, unspecified osteoarthritis type, unspecified site Gastroesophageal reflux disease with esophagitis Anxiety Anxiety state, unspecified [facility] Diagnosis Acute constipation- Primary Unspecified constipation [facility]* Diagnosis Depressive disorder w/ seasonal affective disorder Depressive disorder, not elsewhere classified [facility] [facility]* Diagnosis DDD (degenerative disc disease), lumbar Degeneration of lumbar or lumbosacral intervertebral disc Depressive disorder w/ seasonal affective disorder Depressive disorder, not elsewhere classified Enthesopathy of right hip region Osteoarthritis, unspecified osteoarthritis type, unspecified site Acquired hypothyroidism Unspecified hypothyroidism [facility] [facility]* Diagnosis Anxiety Anxiety state, unspecified [facility] [facility]* Diagnosis Vitamin D deficiency Unspecified vitamin D deficiency [facility]* Diagnosis Onset Date Resolution Status Asthma acute Obesity acute 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 Essential hypertension acute Fatigue acute Presence of cardiac pacemaker May, acute Sick sinus syndrome acute Sinus bradycardia acute [facility] Work Phone: Evaluation note* Diagnosis Fall [...] for breast cancer [facility] Diagnosis Abnormal screening mammogram- Primary Abnormal mammogram, unspecified [facility] Diagnosis Screening mammogram for breast cancer [facility] [facility] Diagnosis Abnormal screening mammogram Abnormal mammogram, unspecified [facility] Diagnosis Abnormal screening mammogram Abnormal mammogram, unspecified [facility]* Diagnosis Medicare annual wellness visit, subsequent- Primary Routine general medical examination at a [facility] Depression, recurrent (HCC) Major depressive disorder, recurrent episode, unspecified Bronchiectasis without complication (HCC) Bronchiectasis without acute exacerbation Stage 3 chronic kidney disease, unspecified whether stage 3a or 3b CKD ([facility]) [facility]* Diagnosis Subarachnoid bleed (HCC)- Primary Subarachnoid [...] debility Debility, unspecified [facility]* Diagnosis SAH (subarachnoid hemorrhage) (HCC) Subarachnoid hemorrhage SAH (subarachnoid hemorrhage) (HCC)- Primary Subarachnoid hemorrhage [facility] Diagnosis SAH (subarachnoid hemorrhage) (HCC)- Primary Subarachnoid hemorrhage [facility] [facility]* Diagnosis DDD (degenerative disc disease), lumbar- Primary Degeneration of lumbar or lumbosacral intervertebral disc Osteoarthritis, unspecified osteoarthritis type, unspecified site [facility]* Diagnosis Anxiety Anxiety state, unspecified [facility]* Diagnosis DDD (degenerative disc disease), lumbar Degeneration of lumbar or lumbosacral intervertebral disc Acquired hypothyroidism Unspecified hypothyroidism Gastroesophageal reflux disease with esophagitis Depressive disorder w/ seasonal affective disorder Depressive disorder, not elsewhere classified Anxiety Anxiety state, unspecified [facility] Diagnosis Traumatic brain injury, without loss of consciousness, subsequent encounter- Primary 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 Dizziness and giddiness Forgetfulness Other general symptoms Imbalance Abnormality of gait Post-traumatic headache, not intractable, unspecified chronicity pattern [facility] Diagnosis Anxiety Anxiety state, unspecified [facility] [facility]* Diagnosis Personal history of traumatic brain injury- Primary Sleep apnea, unspecified type Fatigue, unspecified type Aphagia Dysphagia, unspecified Impaired functional mobility, balance, gait, and endurance [facility] Diagnosis SAH (subarachnoid hemorrhage) (HCC)- Primary Subarachnoid hemorrhage [facility] Diagnosis Personal history of traumatic brain injury- Primary [facility]* Diagnosis Anxiety Anxiety state, unspecified [facility]* Diagnosis Essential hypertension- Primary Unspecified essential hypertension Fall from slip, trip, or stumble, initial encounter Balance problem Other symptoms involving nervous and musculoskeletal systems Asthmatic bronchitis , chronic (HCC) Chronic obstructive asthma, unspecified Acquired hypothyroidism Unspecified hypothyroidism Anxiety Anxiety state, unspecified [facility] Diagnosis Vitamin D deficiency Unspecified vitamin D deficiency [facility] [facility] Diagnosis Hypersomnia- Primary Hypersomnia, unspecified Delayed [...] serious comorbidity present [facility] Diagnosis SAH (subarachnoid hemorrhage) (HCC)- Primary Subarachnoid hemorrhage [facility]* Diagnosis Subarachnoid hemorrhage (HCC)- Primary Subarachnoid hemorrhage [facility]* Diagnosis DDD (degenerative disc disease), lumbar Degeneration of lumbar or lumbosacral intervertebral disc [facility] Diagnosis Subarachnoid hemorrhage (HCC)- Primary Subarachnoid hemorrhage [facility] Diagnosis Subarachnoid hemorrhage (HCC)- Primary Subarachnoid hemorrhage documented in this encounter [facility] note* Diagnosis Nocturnal hypoxia- Primary Hypoxemia Chest discomfort Other chest pain Bronchiectasis without complication (HCC) Bronchiectasis without acute exacerbation documented in this encounter [facility] note* Diagnosis Odynophagia- Primary Dysphagia, unspecified Oral thrush Candidiasis of mouth documented in this encounter [facility] note* Diagnosis Nocturnal hypoxia- Primary Hypoxemia Sleep apnea-like behavior Class 1 obesity with body mass index (BMI) of 31.0 to 31.9 in adult, unspecified obesity type, unspecified whether serious comorbidity present Hypersomnia Hypersomnia, unspecified Insomnia, unspecified type Snoring Other dyspnea and respiratory abnormality documented in this encounter [facility] note* Diagnosis Sore throat- Primary Acute pharyngitis History of oral lesions Other and unspecified diseases of the oral soft tissues documented in this encounter [facility] note* Diagnosis Subarachnoid hemorrhage (HCC)- Primary Subarachnoid hemorrhage documented in this encounter [facility] note* Diagnosis Oxygen desaturation- Primary Hypoxemia Encounter for immunization Need for other specified prophylactic vaccination against single bacterial disease Asthmatic bronchitis , chronic (HCC) Chronic obstructive asthma, unspecified Bronchiectasis without complication (HCC) Bronchiectasis without acute exacerbation Nocturnal hypoxemia Hypoxemia Dyspnea, unspecified type documented in this encounter [facility] note* Diagnosis Oxygen desaturation Hypoxemia documented in this encounter [facility] note* Diagnosis Pleurisy Pleurisy without mention of effusion or current tuberculosis documented in this encounter [facility] note* Diagnosis Acquired hypothyroidism Unspecified hypothyroidism documented in this encounter [facility] note* Diagnosis Fatigue, unspecified type- Primary Personal history of traumatic brain injury Impaired functional mobility, balance, gait, and endurance documented in this encounter [facility] note* Diagnosis Excessive daytime sleepiness- Primary documented in this encounter [facility] note* Diagnosis DDD (degenerative disc disease), lumbar Degeneration of lumbar or lumbosacral intervertebral disc documented in this encounter [facility] note* Diagnosis Nocturnal hypoxia- Primary Hypoxemia Asthmatic bronchitis , chronic (HCC) Chronic obstructive asthma, unspecified Depression, recurrent (HCC) Major depressive disorder, recurrent episode, unspecified Stage 3 chronic kidney disease, unspecified whether stage 3a or 3b CKD (HCC) Bronchiectasis without complication (HCC) Bronchiectasis without acute exacerbation Essential hypertension Unspecified essential hypertension [facility] Diagnosis Nocturnal hypoxemia- Primary Hypoxemia Bronchiectasis without complication (HCC) Bronchiectasis without acute exacerbation Pulmonary hypertension (HCC) Other chronic pulmonary heart diseases Mild intermittent asthma without complication Unspecified asthma [facility]* Diagnosis Bronchiectasis without complication (HCC)- Primary Bronchiectasis without acute exacerbation [facility]* Diagnosis Gastroesophageal reflux disease with esophagitis Depressive disorder w/ seasonal affective disorder Depressive disorder, not elsewhere classified Anxiety Anxiety state, unspecified Acquired hypothyroidism Unspecified hypothyroidism [facility]* Diagnosis Hip pain, left Pain in joint, pelvic region and thigh [facility] Hip pain, left- Primary Pain in joint, pelvic region and thigh Physical debility Debility, unspecified Oxygen desaturation Hypoxemia Bronchiectasis without complication (HCC) Bronchiectasis without acute exacerbation [facility]* Diagnosis Hip pain, left- Primary Pain in joint, pelvic region and thigh documented [facility]* Diagnosis Fatigue, unspecified type- Primary 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 lower extremity pain Physical debility Debility, unspecified documented in this encounter [facility] noteNo assessment information [facility]WTr[facility] Work Phone: Evaluation note* Diagnosis Chronic obstructive pulmonary disease, unspecified COPD type (HCC)- Primary documented in this encounter [facility] note* Diagnosis Trochanteric bursitis of left hip- Primary Enthesopathy of hip region Fatigue, unspecified type 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 lower extremity pain Physical debility Debility, unspecified Iron deficiency Iron deficiency anemia, unspecified Vitamin D deficiency Unspecified vitamin D deficiency Recurrent major depressive disorder, in partial remission [facility] Diagnosis Chronic bilateral low back pain without sciatica- Primary Hip pain, left Pain in joint, pelvic region and thigh Pain of erector spinae muscle [facility]* Diagnosis Medicare annual wellness visit, subsequent- [...] abnormality documented in this encounter [facility] note* Diagnosis Personal history of traumatic brain injury- Primary Sleep apnea, unspecified type documented in this encounter [facility] note* Diagnosis Depression, recurrent- Primary Major depressive disorder, recurrent episode, unspecified Hip pain, left Pain in joint, pelvic region and thigh Dyspnea on exertion Other dyspnea and respiratory abnormality documented [facility]* Diagnosis MARTINES (dyspnea on exertion) Other dyspnea and respiratory abnormality documented in this encounter [facility] note* Diagnosis MARTINES (dyspnea on exertion) Other dyspnea and respiratory abnormality documented in this encounter [facility] note* Diagnosis Depression, recurrent- Primary Major depressive disorder, recurrent episode, unspecified Hip pain, left Pain in joint, pelvic region and thigh MARTINES (dyspnea on exertion) Other dyspnea and respiratory abnormality Contusion of left side of back, subsequent encounter documented in this encounter [facility] note* Diagnosis [id number] adverse effect of medication, initial encounter- Primary Allergic rhinitis due to cats Allergic rhinitis due to animal (cat) (dog) hair and dander Allergic rhinitis due to dust mite Moderate persistent asthma without complication (HCC) Unspecified asthma Toxic effect from eating shellfish, accidental or unintentional, initial encounter documented in this encounter [facility] note* Diagnosis Acute cough- Primary Acute cough documented in this encounter [facility] note* Diagnosis Acute cough documented in this encounter [facility] note* Diagnosis Depression, recurrent Major depressive disorder, recurrent episode, unspecified documented in this encounter [facility] note* Diagnosis Depression, recurrent Major depressive disorder, recurrent episode, unspecified documented in this encounter [facility] note* Diagnosis DDD (degenerative disc disease), lumbar Degeneration of lumbar or lumbosacral intervertebral disc documented [facility]* Diagnosis Bronchiectasis with acute exacerbation (HCC)- Primary Bronchiectasis with acute exacerbation Nocturnal hypoxemia Hypoxemia Mild intermittent asthma without complication (HCC) Unspecified asthma documented in this encounter [facility] note* Diagnosis Acquired hypothyroidism Unspecified hypothyroidism [facility] Idalia Marti [facility] Note Date/Time April 17, 2025 1: 31am [facility] Medical Records Department [address] [place] [address] H&P Exam - Hospitalist 04/17/25 0045 MR#: [id number] Acct: [id number] Name: GEOFFREY NASSAR Rep #:[id number] 6 : 1935 89 From: Idalia Marti MD PCP: Dr. Ken Whelan MD Status:A DM DOMENICA Location: [place] [address] HPI - General General Date of Admission: 04/17/25 Date of Service: 04/17/25 Chief Complaint: Fall, hit head, LOC. HPI Narrative The patient is an 89 y/o F w/ PMHx: Hx SSS s/p pacemaker status, GERD, HTN, HLD,Asthma, Hx VTE w/ submassive PE, Hypothyroidism, Former tobacco use, JADIEL, CKD stage III per GFR trending, Chronic anemia who presents to [facility] ED on 04/17/2025 with history of mechanical fall occurring on day of presentation noted that she had been bending over and fell forward hitting the back of her head unfortunately not recalling any of the event with loss of consciousness and some mild amnesia associated with an aching generalized headache following prompting eventual ED evaluation. She does report that she believes she was unconscious only for seconds. She does report that she is beenfalling more frequently over the last several weeks. Patient reports mild headache still, generalized, rating it 2-3 out of 10 in severity with no light or sound sensitivity. Workup in the ED included T97.6, heart rate 60, BP 147/70, respiratory rate 16, 95% on room air with most recent repeat vitals heart rate 60, BP 161/77, respiratory rate 17, 95% on room air, orthostatics unremarkable, CBC with WBC 8.1, hemoglobin 10.5, MCV 99.4, platelet 232 without marked shift, unremarkable coags, BMP with BUN/canaille 35/1.40, GFR 36, [id number], urinalysis unremarkable, CT brain with no acute intracranial finding with chronic involutional and ischemic gliotic white matter changes noted previously. In the ED patient administered tetanus update. Family noted concerns of patientbeing able to safely return to home especially given her frequent falls. Patient in the ED did have irrigation of her head laceration with eventual closure with 6 lázaro. [facility] Medical History Presence of cardiac pacemaker (~05/29/21) [...] aspirin 81 mg tablet,delayed 81 mg PO QHS heart health 11/27/17 Unknown History release lamotrigine 25 mg tablet,extended 25 mg PO DAILY 11/27 Unknown History release 24 hr loratadine 10 mg tablet (Claritin) 10 mg PO DAILY therese rgies 12/27/20 Unknown History albuterol sulfate 2.5 mg/3 mL 2.5 mg inhalation Q4H [place] N Sob &/Or 01/10/21 05/29/21 History (0.083 [...] QPM eye 01/10/21 Unknown History emulsion health lorazepam 1 mg tablet [...] mcg PO .COMPLEX thyroid 07/01/24 Unknown History hydrocodone-acetaminophen 5-325mg 1 tab PO Q6H PRN PRN Pain 3 days 08/08/24 Unknown Rx 5mg-325mg #10 TABLETS fluticasone furoate 100 1 inh inhalation DAILY #60 e a 08/22/24 Unknown Rx mcg-vilanterol 25 mcg/dose inhalation powder (Breo Ellipta) meloxicam 15 mg tablet 15 mg PO DAILY 09/21/24 Unkn own History furosemide 20 mg tablet 20 mg PO QAM #90 tabs Unknown Rx lisinopril 20 mg tablet 20 mg PO DAILY blood pressur e #90 03/31/25 Unknown Rx tabs estradiol 0.01% (0.1 mg/gram) 1 g vaginal 3XW 3 months #42.5 04/14/25 Unknown Rx vaginal cream grams nitrofurantoin 100 mg PO BID #14 caps 04/14 Unknown Rx monohydrate/macrocrystals 100 mg capsule (Macrobid) Allergy/AdvReac Type Severity Reaction Status Date / Time ciprofloxacin (From Cipro) Allergy Itching Verified 04/16/25 18:52 diphenhydramine (From Allergy Rash Verified 04/16/25 18:52 Benadryl) Penicillins Allergy Hives Verified 04/16/25 18:52 shellfish derived Allergy Anaphylaxis Verified 04/16/25 18:52 Sulfa (Sulfonamide Allergy Upset Verified 04/16/25 18:52 Antibiotics) Stomach tiotropium (From Spiriva Allergy Other Verified 04/16/25 18:52 with HandiHaler) ketamine AdvReac hallucinati Verified 04/16/25 18:52 ons Family History Mother Breast cancer Colon cancer Father Cancer Lung Grandmother Breast cancer CVA (cerebral vascular accident) Surgical History History of tonsillectomy History of cholecystectomy History of bronchoscopy History of cataract extraction History of hysterectomy History of bladder suspension procedure Social History (Updated 04/17/25 @ 00:[address] Idalia Marti MD) household members: none Smoking Status: Former smoker Tobacco: How many years used: 10 second hand exposure: No alcohol intake: current details: occasional substance use type: does not use caffeine: Yes Type: coffee what type of physical activity do you participate in: other seatbelt use: always do you feel safe at home: Yes ROS ROS Narrative Admission Review of Systems: CONSTITUTIONAL: No weight loss, fever, chills, + weakness or fatigue. HEENT: + Mild headache, fall with head trauma with small laceration. Eyes: No visual loss, blurred vision, double vision or yellow sclerae. Ears, Nose, Throat: No hearing loss, sneezing, congestion, runny nose or sore throat. SKIN: No rash or itching, lesions, + occasional stage ecchymoses, abrasion, fallwith small head laceration. CARDIOVASCULAR: + Chronic distal edema. No chest pain, chest pressure or chest discomfort, palpitations, orthopnea, syncopal events. RESPIRATORY: No shortness of breath, cough or sputum, wheezing, hemoptysis. GASTROINTESTINAL: No anorexia, nausea, vomiting or diarrhea, abdominal pain, melena, BRBPR. GENITOURINARY: No dysuria, frequency, urgency or retention. NEUROLOGICAL: + Headache, frequent falls. No dizziness, syncope, paralysis, ataxia, numbness or tingling in the extremities, focal weakness, change in bowelor bladder control, seizure. MUSCULOSKELETAL: No muscle, back pain, joint pain or stiffness. HEMATOLOGIC: + Chronic anemia, easy bleeding/bruising. LYMPHATICS: No enlarged nodes. No history of splenectomy. PSYCHIATRIC: + History of anxiety and depression. ENDOCRINOLOGIC: No reports of sweating, cold or heat intolerance. No polyuria orpolydipsia. ALLERGIES: + History of asthma and allergic rhinitis, hives and anaphylaxis. Vital Signs Vital Signs Vital Signs: 04/16/25 18:46 04/16/25 20:45 04/16/25 21:09 Temperature 97.6 F L Temperature Source Oral Pulse Rate 60 63 Pulse Rate [Lying] Pulse Rate [Sitting (for 1 minute prior to obtaining)] Pulse Rate [Standing (for 1 minute prior to obtaining)] Respiratory Rate 16 18 Respiratory Effort Normal Respiratory Depth Normal Respiratory Pattern Normal Blood Pressure 147/70 H 149/77 H Blood Pressure [Lying] Blood Pressure [Sitting (for 1 minute prior to obtaining)] Blood Pressure [Standing (for 1 minute prior to obtaining)] Blood Pressure Mean 95 101 Blood Pressure Mean [Lying] Blood Pressure Mean [Sitting (for 1 minute prior to obtaining)] Blood Pressure Mean [Standing (for 1 minute prior to obtaining)] Pulse Ox 95 93 Oxygen Delivery Method Room Air Room Air Room Air 04/16/25 22:00 04/16/25 23:26 04/17/25 00:00 Temperature Temperature Source Pulse Rate 61 60 Pulse Rate [Lying] 60 Pulse Rate [Sitting (for 1 minute prior to obtaining)] 62 Pulse Rate [Standing (for 1 minute prior to obtaining)] 78 Respiratory Rate 18 17 Respiratory Effort Respiratory Depth Respiratory Pattern Blood Pressure 147/72 H 161/77 H Blood Pressure [Lying] 142/70 H Blood Pressure [Sitting (for 1 minute prior to obtaining)] 142/77 H Blood Pressure [Standing (for 1 minute prior to obtaining)] 141/87 H Blood Pressure Mean 97 105 Blood Pressure Mean [Lying] 94 Blood Pressure Mean [Sitting (for 1 minute prior to obtaining)] 98 Blood Pressure Mean [Standing (for 1 minute prior to obtaining)] 105 Pulse Ox 100 95 Oxygen Delivery Method Room Air Room Air Weight Weight: 156 lb 15.506 oz Body Mass Index (BMI) 28.7 Physical Exam Narrative Physical Examination: General: Awake, alert, oriented x [address], month, year, remains cooperative, seated upright in the ED bed, fatigued, notes still ongoing mild generalized headache but better. Skin: Normal color, normal turgor, no icterus, no cyanosis except for occasionalstage ecchymoses, abrasion, status post fall with head laceration status post irrigation and closure with 6 lázaro per ED, no active current bleeding. HEENT: Status post fall with head laceration status post irrigation and closure with 6 lázaro, no current bleeding/NC, EOMI, PERRLA, mildly dry MM, no carotid bruits or JVD noted. Lungs: Mildly diminished, greater bases, appropriate effort, no appreciated rales, ronchi or wheezing. Heart: Regular rate and rhythm; no gallop, rub audible. Abdomen: Soft, NTTP, ND, mildly hyperactive BS, no appreciated HSM. Extremities: No cyanosis, no clubbing, mild ankle to distal hayes 1-2+ pitting edema which is noted is chronic. Neurological: Patient awake, alert, oriented as noted, cognitive function intact; pupils equally reactive to light and accommodation, cranial nerves grossly normal, moving all 4 extremities, no focal deficits, strength moderatelyto severely globally decreased Psychiatric: Affect appears fatigued otherwise normal, no acute evidence of depressive or anxiety feelings but does have underlying history. Results Lab / Micro Data 04/16/25 21:24 04/16/25 21:24 Labs: Laboratory Results - last 24 hr 04/16/25 21:24: WBC 8.1, RBC 3.38 L, Hgb 10.5 L, Hct 33.6 L, MCV 99.4 H, MCH 31.1, MCHC 31.3 L, RDW Std Deviation 54.9 H, RDW Coeff of Dave 14.9 H, Plt Count 232, MPV 10.2, Immature Gran % (Auto) 0.900, Neut % (Auto) 62.5, Lymph % (Auto) 22.0, Gulf % (Auto) 11.1 H, Eos % (Auto) 2.9, Baso % (Auto) 0.6, Absolute Neuts (auto) 5.0, Absolute Lymphs (auto) 1.77, Nucleated RBC % 0, PT 13.4, INR 1.0, APTT 27.1, Sodium 141, Potassium 4.1, Chloride 107, Carbon Dioxide 23.9, Anion Gap 10, BUN 35 H, Creatinine 1.40 H, Estim Creat Clear Calc 25.67 L, Est GFR (MDRD) Non-Af 36 L, BUN/Creatinine Ratio 24.6 H, Glucose 103 H, Calcium 9.4, Urine Color Yellow, Urine Clarity Clear, Urine pH 6.5, Ur Specific [place] 1.010, Urine Protein Negative, Urine Glucose (UA) Normal, Urine Ketones Negative, Urine Occult Blood Negative, Urine Nitrite Negative, Urine Bilirubin Negative, Urine Urobilinogen Normal, Ur Leukocyte Esterase Negative, Urine RBC 0-5 SEEN, Urine WBC 0-5 SEEN, Ur Squamous Epith Cells 0-5 SEEN, Urine Bacteria RARE, Urine Mucus 0 SEEN Imaging Radiology Impression Brain CT 04/16/25 21:01 IMPRESSION: 1. No intracranial hemorrhage. No mass effect or midline shift. 2. 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 Reading [facility] Assessment & Plan Assessment/Plan (1) Frequent falls: PLAN: Plan The patient is an 89 y/o F w/ PMHx: Hx SSS s/p pacemaker status, GERD, HTN, HLD,Asthma, Hx VTE w/ submassive PE, Hypothyroidism, Former tobacco use, JADIEL, CKD stage III per GFR trending, Chronic anemia who presents to [facility] ED on 04/17/2025 with history of mechanical fall occurring on day of presentation noted that she had been bending over and fell forward hitting the back of her head unfortunately not recalling any of the event with loss of consciousness and some mild amnesia associated with an aching generalized headache following prompting eventual ED evaluation. #1. Recurrent mechanical falls with adult failure to thrive with episode of head trauma with LOC with transient amnesia, currently resolved: Given family concerns will admit patient to medical surgical floor, maintain on fall precautions, likely will need to alter patient medication regimen as she is on asignificant high dose of Ativan nightly which likely can contribute to her fall risk in addition to baclofen, both of which will be temporarily held this evening but may need to reconsider resuming at least at a lower dose to avoid withdrawal, PT/OT/case management consulted for discharge planning. Patient status post 6 lázaro placed to the scalp and will need these removed in 1 week/7 days. #2. Macrocytic anemia: Admission hemoglobin 10.5, MCV 99.4, baseline hemoglobinnoted to vacillate, more recently has been 11-12 however this was greater than 6months previous to current presentation, will trend CBC. #3. Chronic Kidney Disease Stage III, unclear subtype per GFR trending: Admission BUN/Cr 35/1.40, GFR 36, baseline renal function more recently 1.3-1.4 with last noted 11/11/2024 creatinine 1.42, repeat BMP in AM. #4. Anxiety and depression: Will continue patient home paroxetine regimen. Patient is on a significant amount of lorazepam noted to be 2 mg nightly, given advanced age this may be significantly contributing to her fall risk. Given recent amnesic event will temporarily hold and may need to restart back at a lower dose and then wean off outpatient. #5. Hypertension: Continue home regimen including lisinopril, Lasix with hold parameters as needed although orthostatics are negative of note, PRN hydralazine. #6. Hyperlipidemia: Per current list does not appear to be on regimen, defer tooutpatient. #7. OA, chronic pain: Patient is on significant mount as noted nightly Ativan specifically 2 mg in addition to being on baclofen 5 mg p.o. twice daily as a muscle relaxer and unfortunately these items are very sedated and likely contributing to her falls, will temporarily hold but may need to resume at a lower dose and weaned off outpatient. #8. Chronic asthma with allergic rhinitis: Will temporally hold home inhaler inthe interim placed on ATC budesonide therapy, as needed albuterol, encourage head of bed and I-S, will continue patient home loratadine regimen. 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 #10. History SSS: Status post pacemaker placement, encourage continued follow-up and interrogation outpatient as previously arranged. #11. Former tobacco use: Encouraged continued tobacco cessation. #12. Hypothyroidism: Will continue patient on levothyroxine regimen. #13. GERD: New patient on PPI. #14. JADIEL: Patient does not use any PAP therapy, uses 2 L NC nightly. #15. DVT prophylaxis: Heparin. #16. CODE status: Patient HCPOA is her brother primary and secondary is her daughter and living will is currently in place. Discussed CODE status at length including difference between FULL code, DNR-CCA and DNR-CC status. Following discussions about the differences in these status, requested DNR CCA, clarified further with examples and patient determined with intubation. Advanced Care Planning Face to Face Time: 16 minutes. Charges/Coding Visit Charges Inpatient E&M: 61167 Init Hosp L2 Procedures Hospitalists Procedures: 86778 Advncd Care Plan 30 Min 04/17/25 0131 <Electronically signed by Idalia Marti MD> Cosigner Signature (if applicable): CC: Dr. Idalia Marti MD; Dr. Ken Whelan MD~ Signed [facility] Work Phone: Hospital Discharge instructions Additional Instructions Please follow-up with your PCP return for any worsening of your symptoms. Ice your face and knee a few times a day for the next few days, you can take Tylenol for pain as needed. [facility] Work Phone: Hospital Discharge instructions Additional [...] would like to be seen by an orthopedist.[facility] Work Phone: Reason for referral (narrative)* Diagnostic Procedure Only (Routine) - Authorized Specialty Diagnoses / Procedures Referred By Contac t Referred To Contact [facility] Diagnoses Screening mammogram for breast cancer Procedures SOPHIE SCREENING SCREENING MAMMOGRAPHY BI 2-VIEW BREAST INC Dia Cabrera, MANAGER PLAN.[employer] [address] [place] [address] [facility] [address] [place] [address] Referral ID Status Reason Start Date Expiration Date Visits Requested Visits Authorized [id number] Authorized Auto-Generat ed Referral 05/21/2023 06/19/2024 1 1 [facility] for referral (narrative)* Diagnostic Procedure Only (Routine) - Pending Review Specialty Diagnoses / Procedures Referred By Bhupinder barreto Referred To Contact [facility] Diagnoses Abnormal screening mammogram Procedures US BREAST LTD LEFT US BREAST UNI REAL TIME WITH IMAGE LIMITED Dia Thayer APRN.CHRISTMAS BELL RINGER [address] [place] [address] [facility] [address] [place] [address] Referral ID Status Reason Start Date Expiration Date Visits Requested Visits Authorized [id number] Pending Review Auto-Generat ed Referral 07/08/2023 08/06/2024 1 1 * Diagnostic Procedure Only (Routine) - Pending Review Specialty Diagnoses / Procedures Referred By Bhupinder barreto Referred To Contact [facility] Diagnoses Abnormal screening mammogram Procedures [place] DIAGNOSTIC LEFT DIAGNOSTIC MAMMOGRAPHY COMPUTER-AIDED DETCJ UNI Dia Thayer APRN.CHRISTMAS BELL RINGER [address] [place] [address] [facility] [address] [place] [address] Referral ID Status Reason Start Date Expiration Date Visits Requested Visits Authorized [id number] Pending Review Auto-Generat ed Referral 07/08/2023 08/06/2024 1 1 [facility] for referral (narrative)* Diagnostic Procedure Only (Routine) - Closed Specialty Diagnoses / Procedures Referred By Bhupinder barreto Referred To Contact [facility] Diagnoses Screening mammogram for breast cancer Procedures [place] SCREENING SCREENING MAMMOGRAPHY BI 2-VIEW BREAST INC CAD Dia Thayer APRN.CHRISTMAS BELL RINGER [address] [place] [address] [facility] [address] [place] [address] Referral ID Status Reason Start Date Expiration Date V isits Requested Visits Authorized [id number] Closed Auto-Generate d Referral 05/21/2023 06/19/2024 1 1 [facility] for referral (narrative)* Diagnostic Procedure Only (Routine) - Authorized Specialty Diagnoses / Procedures Referred By Contac t Referred To Contact [facility] [place] Diagnoses Hypersomnia Delayed sleep phase syndrome Insomnia, unspecified type Snoring Procedures HOME SLEEP APNEA TEST (HSAT) SLEEP STD AIRFLOW HRT RATE&O2 SAT EFFORT UNATT Kaya Moon Jr., MD [address] [address] [facility] [address] [place], [place] [id number] Referral ID Status Reason Start Date Expiration Date Visits Requested Visits Authorized [id number] Authorized Auto-Generat ed Referral 04/18/2024 04/18/2025 1 1 [facility] for referral (narrative)* Outpatient Procedure (Routine) - Authorized Specialty Diagnoses / Procedures Referred By Contac t Referred To Contact [facility] [place] Diagnoses Chest discomfort Nocturnal hypoxia Procedures ECHO ECHO TTHRC R-T 2D W/WOM-MODE COMPL SPEC&COLR D Dia Nixon APRN.CHRISTMAS BELL RINGER [address] [place] [address] [facility] [address] [address] Referral ID Status Reason Start Date Expiration Date Visits Requested Visits Authorized [id number] Authorized Auto-Generat ed Referral 05/13/2024 05/13/2025 1 1 * Outpatient Procedure (Routine) - New Request Specialty Diagnoses / Procedures Referred By Contac t Referred To Contact [facility] Diagnoses Chest discomfort Procedures ECG COMPLETE ECG ROUTINE ECG W/LEAST 12 LDS W/I&R Dia Nixon APRN.CHRISTMAS BELL RINGER [address] [place] [address] [facility] [address] [place] [address] Referral ID Status Reason Start Date Expiration Date Visits Requested Visits Authorized [id number] New Request Auto-Generat ed Referral 05/13/2024 05/13/2025 1 1 [facility] for referral (narrative)No reason for referral information [facility] Work Phone: Reason for visit Narrative* Diagnostic Procedure Only (Routine) - Closed Specialty Diagnoses / Procedures Referred By Bhupinder t Referred To Contact [facility] Diagnoses Screening mammogram for breast cancer Procedures [place]IE SCREENING SCREENING MAMMOGRAPHY BI 2-VIEW BREAST INC CAD Dia Thayer APRN.CHRISTMAS BELL RINGER [address] [place] [address] [facility] [address] [place] [address] Referral ID Status Reason Start Date Expiration Date V isits Requested Visits Authorized [id number] Closed Auto-Generate d Referral 05/21/2023 06/19/2024 1 1 [facility] for visit Narrative* Diagnostic Procedure Only (Routine) - Authorized Specialty Diagnoses / Procedures Referred By Bhupinder t Referred To Contact [facility] Diagnoses Abnormal screening mammogram Procedures US BREAST LTD LEFT US BREAST UNI REAL TIME WITH IMAGE LIMITED Dia Thayer APRN.CHRISTMAS BELL RINGER [address] [place] [address] [facility] [address] [place] [address] Referral ID Status Reason Start Date Expiration Date Visits Requested Visits Authorized [id number] Authorized Auto-Generat ed Referral 07/08/2023 08/06/2024 1 1 [facility] for visit Narrative* Diagnostic Procedure Only (Routine) - Closed Specialty Diagnoses / Procedures Referred By Contac t Referred To Contact [facility] Diagnoses Abnormal screening mammogram Procedures S[place]IE DIAGNOSTIC LEFT DIAGNOSTIC MAMMOGRAPHY COMPUTER-AIDED DETCJ UNI Dia Thayer APRN.CHRISTMAS BELL RINGER [address] [place] [address] [facility] [address] [place] [address] Referral ID Status Reason Start Date Expiration Date V isits Requested Visits Authorized [id number] Closed Auto-Generate d Referral 07/08/2023 08/06/2024 1 1 [facility] Diagnostic Procedure Only (Routine) - Closed Specialty Diagnoses / Procedures Referred By Bhupinder t Referred To Contact [facility] Diagnoses Hip pain, left Procedures XR HIP GENERAL 3V PELV/AP/LAT LEFT RADEX HIP UNILATERAL WITH PELVIS 2-3 VIEWS Ken Whelan MD [address] [place] [address] Phone: tel: fax: [place] [address] Referral ID Status Reason Start Date Expiration Date V isits Requested Visits Authorized [id number] Closed Auto-Generate d Referral 11/24/2024 12/24/2025 1 1 [facility] Advance Directives No Advanced Directives Records FoundDocuments on File Type Date Recorded Patient Urban Anthropologist 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 Advance Directive(s) 10/08/2012 8:08 PM Advance Directive(s) 09/13/2012 1:28 PM Advance Directive Response Recorded Date/ Time Advance Directives Yes May 10:59am Living Will Yes May 29, 2021 3:45pm Power of Band Teacher Yes May 3:45pm Documents on File Type Date Recorded Patient Urban Anthropologist 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 Advance Directive(s) 10/08/2012 8:08 PM Advance Directive(s) 09/13/2012 1:28 PM Advance Directive Response Recorded Date/ Time Advance Directives Yes May 9:59am Living Will Yes May 29, 2021 2:45pm Power of Band Teacher Yes May 2:45pm Advance Directive Response Recorded Date/ Time Name of Medical Power of Band Teacher BROTHER January 09, 2023 6:50pm Advance Directives Yes May 10:59am Living Will Yes January 09, 2023 6: 50pm Power of Band Teacher Yes January 09, 2023 6:50pm Advance Directive Response Recorded Date/ Time Advance Directives Yes May 10:59am Living Will Yes January 09, 2023 6: 50pm Power of Band Teacher Yes January 09, 2023 6:50pm Advance Directive Response Recorded Date/ Time Name of Medical Power of Band Teacher ? May 18, 2023 2:23pm Advance Directives Yes May 10:59am Living Will Yes May 18, 2023 2:23pm Power of Band Teacher Yes May 2:23pm Advance Directive Response Recorded Date/ Time Name of Medical Power of Band Teacher ? May 18, 2023 2:23pm Name of Medical Power of Band Teacher ALEAH TILLEY May 27, 2023 5:48pm Advance Directives Yes May 10:59am Living Will Yes May 27, 2023 5:48pm Power of Band Teacher Yes May 5:48pm Advance Directive Response Recorded Date/ Time Name of Medical Power of Band Teacher FARTUN MACIEL October 02, 2023 7:10pm Advance Directives Yes May 9:59am Living Will Yes October 02 7:10pm Power of Band Teacher Yes October 02, 2023 7:10pm Latest Code [...] Will Yes August 08 4:42pm Power of Band Teacher Yes August 08, 2024 4:42pm Name of Medical Power of Band Teacher Benny Edwards August 08, 2024 4:42pm Living Will No September 05, 2 024 6:11pm Power of Band Teacher No September 05, 2024 6:11pm Advance Directives Yes May 10:59am Advance Directive Response Recorded Date/ Time Do you have a Healthcare Power of Band Teacher? Yes February 15, 2025 4:00pm Name of Medical Power of Band Teacher aleah miguelangel February 15, 2025 4:00pm Advance Directives Yes May 10:59am Advance Directive Response Recorded Date/ Time Living Will Yes October 02 8:10pm Do you have a Healthcare Power of Band Teacher? Yes October 02, 2023 8:10pm Do you have a Healthcare Power of Band Teacher? Yes February 15, 2025 4:00pm Name of Medical Power of Band Teacher aleah miguelangel February 15, 2025 4:00pm Advance Directives Yes May 10:59am Advance Directive Response Recorded Date/ Time Living Will Yes October 02 8:10pm Do you have a Healthcare Power of Band Teacher? Yes October 02, 2023 8:10pm Do you have a Healthcare Power of Band Teacher? Yes February 15, 2025 4:00pm Name of Medical Power of Band Teacher aleahchristen tilley February 15, 2025 4:00pm Do you have a Healthcare Power of Band Teacher? Yes April 16, 2025 8:57pm Advance Directives Yes May 10:59am Advance Directive Response Recorded Date/ Time Living Will Yes October 02 8:10pm Do you have a Healthcare Pow er of Band Teacher? Yes October 02, 2023 8:10pm Do you have a Healthcare Pow er of Band Teacher? Yes February 15, 2025 4:00pm Name of Medical Power of Band Teacher aleahchristen tilley February 15, 2025 4:00pm Do you have a Healthcare Pow er of Band Teacher? Yes April 17, 2025 2:03am Name of Medical Power of Band Teacher Fartun Edwards (Brother) and Aleah Tilley (Daughter) April 17, 2025 2:03am Advance Directives Yes May 10:59am Chief Complaint [...] of cardiac pacemaker March 31, 2025 1:26pm Chief Complaint Admit Date Pacer Check Remote December 23, 2024 2:3 0am fallFebruary 15, 2025 2:13 pm DYSPNEA ON EXERTION March 08, 2025 7:27a m DYSPNEA ON EXERTION March 08, 2025 5:19p m Pacer Check Remote March 24, 2025 2:31 am 9 M FU March 31, 2025 1:26 pm FALLS, ADULT FTT April 17, 2025 12 :50am Reason for Visit Admit Date Chronotropic incompetence with sinus nod e dysfunction March 31, 2025 1:26pm Essential hypertension March 31, 2025 1 :26pm Presence of cardiac pacemaker March 31, 2025 1:26pm Closed head injury April 17, 2025 12 :50am Essential hypertension April 17, 2025 12:50am Frequent falls April 17, 2025 12 :50am Laceration of occipital scalp April 12:50am Chief Complaint Admit Date Pacer Check Remote December 23, 2024 2:3 0am FALL February 15, 2025 2:13 pm DYSPNEA ON EXERTION March 08, 2025 7:27a m DYSPNEA ON EXERTION March 08, 2025 5:19p m Pacer Check Remote March 24, 2025 2:31 am 9 M FU March 31, 2025 1:26 pm FALLS, ADULT FTT April 17, 2025 12 :50am FALLS, ADULT FTT April 17, 2025 12 :01pm MRI PROGRAMMING April 17, 2025 2: 49pm Reason for Visit Admit Date Chronotropic incompetence with sinus nod e dysfunction March 31, 2025 1:26pm Essential hypertension March 31, 2025 1 :26pm Presence of cardiac pacemaker March 31, 2025 1:26pm Closed head injury April 17, 2025 12 :01pm Essential hypertension April 17, 2025 12:01pm Frequent falls April 17, 2025 12 :01pm Laceration of occipital scalp April 12:01pm Frequent falls April 17, 2025 2: 49pm Presence of cardiac pacemaker April 2:49pm Sick sinus syndrome April 17, 2025 2: 49pm Chief Complaint Admit Date Pacer Check Remote December 23, 2024 2:3 0am FALL February 15, 2025 2:13 pm DYSPNEA ON EXERTION March 08, 2025 7:27a m DYSPNEA ON EXERTION March 08, 2025 5:19p m Pacer Check Remote March 24, 2025 2:31 am 9 M FU March 31, 2025 1:26 pm FALLS, ADULT FTT April 17, 2025 12 :50am Pacer Check Remote April 17, 2025 9: 00am FALLS, ADULT FTT April 17, 2025 12 :01pm MRI PROGRAMMING April 17, 2025 2: 49pm FALLS, ADULT FTT April 18, 2025 2: 44pm FALLS, ADULT FTT April 19, 2025 3: 30pm Chief Complaint Admit Date Pacer Check Remote December 23, 2024 2:3 0am FALL February 15, 2025 2:13 pm DYSPNEA ON EXERTION March 08, 2025 7:27a m DYSPNEA ON EXERTION March 08, 2025 5:19p m Pacer Check Remote March 24, 2025 2:31 am 9 M FU March 31, 2025 1:26 pm FALLS, ADULT FTT April 17, 2025 12 :50am Pacer Check Remote April 17, 2025 9: 00am FALLS, ADULT FTT April 17, 2025 12 :01pm MRI PROGRAMMING April 17, 2025 2: 49pm FALLS, ADULT FTT April 18, 2025 2: 44pm FALLS, ADULT FTT April 19, 2025 3: 30pm FALLS, ADULT FTT April 20, 2025 10 :42am Family History No Family History Records Found Relationship Condition Age at Onset Recorded Date/T fletcher mother Malignant neoplasm of breast Unknown Malignant neoplasm of colon Unknown father Malignant neoplasm Unknown grandmother Malignant neoplasm of breast Unknown Cerebrovascular accident (CVA) Unknown Reason for Referral Specialty Diagnoses / Procedures Referred By Contac t Referred To Contact Diagnoses Recurrent UTI Jennifer Thayer APRN.CHRISTMAS BELL RINGER [address] [place] [address] Referral ID Status Reason Start Date Expiration Date V isits Requested Visits Authorized [id number] Pending Review 1 1 Specialty Diagnoses / Procedures Referred By Contac t Referred To Contact CT IMAGING Diagnoses SAH (subarachnoid hemorrhage) (HCC) Procedures CT BRAIN WO IVCON CT HEAD/BRAIN W/O CONTRAST MATERIAL Dulce Vallejo, PANeha [address] [place] [address] [facility] [place] [address] Referral ID Status Reason Start Date Expiration Date V isits Requested Visits Authorized [id number] Closed Auto-Generate d Referral 10/03/2023 11/01/2024 1 1 Specialty Diagnoses / Procedures Referred By Contac t Referred To Contact Diagnoses Traumatic brain injury, without loss of consciousness, 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 Procedures CONSULT TO PSYCHIATRY OFFICE/OUTPATIENT [facility] 60 MINUTES Tremaine Landon MD [address] [place] [place] [id number] Referral ID Status Reason Start Date Expiration Date Visits Requested Visits Authorized [id number] Pending Review PCP Requested Referral 11/09/2023 11/08/2024 1 1 Specialty Diagnoses / Procedures Referred By Contac t Referred To Contact [facility] Diagnoses Personal history of traumatic brain injury Procedures CONSULT TO SPEECH THERAPY OFFICE/OUTPATIENT [facility] 60 MINUTES Ailyn Bonner, MANAGER PLAN.CHRISTMAS BELL RINGER [address] [place] [address] [facility] [address] [place] [address] Referral ID Status Reason Start Date Expiration Date Visits Requested Visits Authorized [id number] Authorized Auto-Generat ed Referral 01/06/2024 01/05/2025 99 99 Specialty Diagnoses / Procedures Referred By Contac t Referred To Contact Diagnoses Sleep apnea, unspecified type Fatigue, unspecified type Procedures CONSULT TO SLEEP MEDICINE - ADULT OFFICE/OUTPATIENT [facility] 60 MINUTES Ailyn Bonner, MANAGER PLAN.CHRISTMAS BELL RINGER [address] [place] [address] Referral ID Status Reason Start Date Expiration Date Visits Requested Visits Authorized [id number] Authorized PCP Requested Referral 01/06/2024 01/05/2025 1 1 Specialty Diagnoses / Procedures Referred By Contac t Referred To Contact Ent - Otolaryngology Diagnoses Odynophagia Oral thrush Procedures CONSULT TO ENT OFFICE/OUTPATIENT [facility] 60 MINUTES Dia Nixon, MANAGER PLAN.CHRISTMAS BELL RINGER [address] [place] [address] Referral ID Status Reason Start Date Expiration Date Visits Requested Visits Authorized [id number] Authorized PCP Requested Referral 05/13/2024 05/13/2025 1 [...] or prosecute any alcohol or drug abuse patient.[facility] the event this information is protected by the Federal Confidentiality of Alcohol and Drug Abuse Patient Records regulations: The Federal rules restrict any use of the information to criminally investigate or prosecute any alcohol or drug abuse patient.[facility] CenterIn the event this information is protected by the Federal Confidentiality of Alcohol and Drug Abuse Patient Records regulations: The Federal rules restrict any use of the information to criminally investigate or prosecute any alcohol or drug abuse patient.[facility] CenterIn the event this information is protected by the Federal Confidentiality of Alcohol and Drug Abuse Patient Records regulations: The Federal rules restrict any use of the information to criminally investigate or prosecute any alcohol or drug abuse patient.[facility] CenterIn the event this information is protected by the Federal Confidentiality of Alcohol and Drug Abuse Patient Records regulations: The Federal rules restrict any use of the information to criminally investigate or prosecute any alcohol or drug abuse patient.[facility] CenterIn the event this information is protected by the Federal Confidentiality of Alcohol and Drug Abuse Patient Records regulations: The Federal rules restrict any use of the information to criminally investigate or prosecute any alcohol or drug abuse patient.[facility] CenterIn the event this information is protected by the Federal Confidentiality of Alcohol and Drug Abuse Patient Records regulations: The Federal rules restrict any use of the information to criminally investigate or prosecute any alcohol or drug abuse patient.[facility] CenterIn the event this information is protected by the Federal Confidentiality of Alcohol and Drug Abuse Patient Records regulations: The Federal rules restrict any use of the information to criminally investigate or prosecute any alcohol or drug abuse patient.[facility] CenterIn the event this information is protected by the Federal Confidentiality of Alcohol and Drug Abuse Patient Records regulations: The Federal rules restrict any use of the information to criminally investigate or prosecute any alcohol or drug abuse patient.[facility] CenterIn the event this information is protected by the Federal Confidentiality of Alcohol and Drug Abuse Patient Records regulations: The Federal rules restrict any use of the information to criminally investigate or prosecute any alcohol or drug abuse patient.[facility] CenterIn the event this information is protected by the Federal Confidentiality of Alcohol and Drug Abuse Patient Records regulations: The Federal rules restrict any use of the information to criminally investigate or prosecute any alcohol or drug abuse patient.[facility] CenterIn the event this information is protected by the Federal Confidentiality of Alcohol and Drug Abuse Patient Records regulations: The Federal rules restrict any use of the information to criminally investigate or prosecute any alcohol or drug abuse patient.[facility] CenterIn the event this information is protected by the Federal Confidentiality of Alcohol and Drug Abuse Patient Records regulations: The Federal rules restrict any use of the information to criminally investigate or prosecute any alcohol or drug abuse patient.[facility] CenterIn the event this information is protected by the Federal Confidentiality of Alcohol and Drug Abuse Patient Records regulations: The Federal rules restrict any use of the information to criminally investigate or prosecute any alcohol or drug abuse patient.[facility] CenterIn the event this information is protected by the Federal Confidentiality of Alcohol and Drug Abuse Patient Records regulations: The Federal rules restrict any use of the information to criminally investigate or prosecute any alcohol or drug abuse patient.[facility] CenterIn the event this information is protected by the Federal Confidentiality of Alcohol and Drug Abuse Patient Records regulations: The Federal rules restrict any use of the information to criminally investigate or prosecute any alcohol or drug abuse patient.[facility] CenterIn the event this information is protected by the Federal Confidentiality of Alcohol and Drug Abuse Patient Records regulations: The Federal rules restrict any use of the information to criminally investigate or prosecute any alcohol or drug abuse patient.[facility] CenterIn the event this information is protected by the Federal Confidentiality of Alcohol and Drug Abuse Patient Records regulations: The Federal rules restrict any use of the information to criminally investigate or prosecute any alcohol or drug abuse patient.[facility] CenterIn the event this information is protected by the Federal Confidentiality of Alcohol and Drug Abuse Patient Records regulations: The Federal rules restrict any use of the information to criminally investigate or prosecute any alcohol or drug abuse patient.[facility] CenterIn the event this information is protected by the Federal Confidentiality of Alcohol and Drug Abuse Patient Records regulations: The Federal rules restrict any use of the information to criminally investigate or prosecute any alcohol or drug abuse patient.[facility] CenterIn the event this information is protected by the Federal Confidentiality of Alcohol and Drug Abuse Patient Records regulations: The Federal rules restrict any use of the information to criminally investigate or prosecute any alcohol or drug abuse patient.[facility] CenterIn the event this information is protected by the Federal Confidentiality of Alcohol and Drug Abuse Patient Records regulations: The Federal rules restrict any use of the information to criminally investigate or prosecute any alcohol or drug abuse patient.[facility] CenterIn the event this information is protected by the Federal Confidentiality of Alcohol and Drug Abuse Patient Records regulations: The Federal rules restrict any use of the information to criminally investigate or prosecute any alcohol or drug abuse patient.[facility] CenterIn the event this information is protected by the Federal Confidentiality of Alcohol and Drug Abuse Patient Records regulations: The Federal rules restrict any use of the information to criminally investigate or prosecute any alcohol or drug abuse patient.[facility] CenterIn the event this information is protected by the Federal Confidentiality of Alcohol and Drug Abuse Patient Records regulations: The Federal rules restrict any use of the information to criminally investigate or prosecute any alcohol or drug abuse patient.[facility] CenterIn the event this information is protected by the Federal Confidentiality of Alcohol and Drug Abuse Patient Records regulations: The Federal rules restrict any use of the information to criminally investigate or prosecute any alcohol or drug abuse patient.[facility] CenterIn the event this information is protected by the Federal Confidentiality of Alcohol and Drug Abuse Patient Records regulations: The Federal rules restrict any use of the information to criminally investigate or prosecute any alcohol or drug abuse patient.[facility] CenterIn the event this information is protected by the Federal Confidentiality of Alcohol and Drug Abuse Patient Records regulations: The Federal rules restrict any use of the information to criminally investigate or prosecute any alcohol or drug abuse patient.[facility] CenterIn the event this information is protected by the Federal Confidentiality of Alcohol and Drug Abuse Patient Records regulations: The Federal rules restrict any use of the information to criminally investigate or prosecute any alcohol or drug abuse patient.[facility] CenterIn the event this information is protected by the Federal Confidentiality of Alcohol and Drug Abuse Patient Records regulations: The Federal rules restrict any use of the information to criminally investigate or prosecute any alcohol or drug abuse patient.[facility] CenterIn the event this information is protected by the Federal Confidentiality of Alcohol and Drug Abuse Patient Records regulations: The Federal rules restrict any use of the information to criminally investigate or prosecute any alcohol or drug abuse patient.[facility] CenterIn the event this information is protected by the Federal Confidentiality of Alcohol and Drug Abuse Patient Records regulations: The Federal rules restrict any use of the information to criminally investigate or prosecute any alcohol or drug abuse patient.[facility] CenterIn the event this information is protected by the Federal Confidentiality of Alcohol and Drug Abuse Patient Records regulations: The Federal rules restrict any use of the information to criminally investigate or prosecute any alcohol or drug abuse patient.[facility] CenterIn the event this information is protected by the Federal Confidentiality of Alcohol and Drug Abuse Patient Records regulations: The Federal rules restrict any use of the information to criminally investigate or prosecute any alcohol or drug abuse patient.[facility] CenterIn the event this information is protected by the Federal Confidentiality of Alcohol and Drug Abuse Patient Records regulations: The Federal rules restrict any use of the information to criminally investigate or prosecute any alcohol or drug abuse patient.[facility] CenterIn the event this information is protected by the Federal Confidentiality of Alcohol and Drug Abuse Patient Records regulations: The Federal rules restrict any use of the information to criminally investigate or prosecute any alcohol or drug abuse patient.[facility] CenterIn the event this information is protected by the Federal Confidentiality of Alcohol and Drug Abuse Patient Records regulations: The Federal rules restrict any use of the information to criminally investigate or prosecute any alcohol or drug abuse patient.[facility] CenterIn the event this information is protected by the Federal Confidentiality of Alcohol and Drug Abuse Patient Records regulations: The Federal rules restrict any use of the information to criminally investigate or prosecute any alcohol or drug abuse patient.[facility] CenterIn the event this information is protected by the Federal Confidentiality of Alcohol and Drug Abuse Patient Records regulations: The Federal rules restrict any use of the information to criminally investigate or prosecute any alcohol or drug abuse patient.[facility] CenterIn the event this information is protected by the Federal Confidentiality of Alcohol and Drug Abuse Patient Records regulations: The Federal rules restrict any use of the information to criminally investigate or prosecute any alcohol or drug abuse patient.[facility] CenterIn the event this information is protected by the Federal Confidentiality of Alcohol and Drug Abuse Patient Records regulations: The Federal rules restrict any use of the information to criminally investigate or prosecute any alcohol or drug abuse patient.[facility] CenterIn the event this information is protected by the Federal Confidentiality of Alcohol and Drug Abuse Patient Records regulations: The Federal rules restrict any use of the information to criminally investigate or prosecute any alcohol or drug abuse patient.[facility] CenterIn the event this information is protected by the Federal Confidentiality of Alcohol and Drug Abuse Patient Records regulations: The Federal rules restrict any use of the information to criminally investigate or prosecute any alcohol or drug abuse patient.[facility] CenterIn the event this information is protected by the Federal Confidentiality of Alcohol and Drug Abuse Patient Records regulations: The Federal rules restrict any use of the information to criminally investigate or prosecute any alcohol or drug abuse patient.[facility] CenterIn the event this information is protected by the Federal Confidentiality of Alcohol and Drug Abuse Patient Records regulations: The Federal rules restrict any use of the information to criminally investigate or prosecute any alcohol or drug abuse patient.[facility] CenterIn the event this information is protected by the Federal Confidentiality of Alcohol and Drug Abuse Patient Records regulations: The Federal rules restrict any use of the information to criminally investigate or prosecute any alcohol or drug abuse patient.[facility] CenterIn the event this information is protected by the Federal Confidentiality of Alcohol and Drug Abuse Patient Records regulations: The Federal rules restrict any use of the information to criminally investigate or prosecute any alcohol or drug abuse patient.[facility] CenterIn the event this information is protected by the Federal Confidentiality of Alcohol and Drug Abuse Patient Records regulations: The Federal rules restrict any use of the information to criminally investigate or prosecute any alcohol or drug abuse patient.[facility] CenterIn the event this information is protected by the Federal Confidentiality of Alcohol and Drug Abuse Patient Records regulations: The Federal rules restrict any use of the information to criminally investigate or prosecute any alcohol or drug abuse patient.[facility] CenterIn the event this information is protected by the Federal Confidentiality of Alcohol and Drug Abuse Patient Records regulations: The Federal rules restrict any use of the information to criminally investigate or prosecute any alcohol or drug abuse patient.[facility] CenterIn the event this information is protected by the Federal Confidentiality of Alcohol and Drug Abuse Patient Records regulations: The Federal rules restrict any use of the information to criminally investigate or prosecute any alcohol or drug abuse patient.[facility] CenterIn the event this information is protected by the Federal Confidentiality of Alcohol and Drug Abuse Patient Records regulations: The Federal rules restrict any use of the information to criminally investigate or prosecute any alcohol or drug abuse patient.[facility] CenterIn the event this information is protected by the Federal Confidentiality of Alcohol and Drug Abuse Patient Records regulations: The Federal rules restrict any use of the information to criminally investigate or prosecute any alcohol or drug abuse patient.[facility] CenterIn the event this information is protected by the Federal Confidentiality of Alcohol and Drug Abuse Patient Records regulations: The Federal rules restrict any use of the information to criminally investigate or prosecute any alcohol or drug abuse patient.[facility] CenterIn the event this information is protected by the Federal Confidentiality of Alcohol and Drug Abuse Patient Records regulations: The Federal rules restrict any use of the information to criminally investigate or prosecute any alcohol or drug abuse patient.[facility] CenterIn the event this information is protected by the Federal Confidentiality of Alcohol and Drug Abuse Patient Records regulations: The Federal rules restrict any use of the information to criminally investigate or prosecute any alcohol or drug abuse patient.[facility] CenterIn the event this information is protected by the Federal Confidentiality of Alcohol and Drug Abuse Patient Records regulations: The Federal rules restrict any use of the information to criminally investigate or prosecute any alcohol or drug abuse patient.[facility] CenterIn the event this information is protected by the Federal Confidentiality of Alcohol and Drug Abuse Patient Records regulations: The Federal rules restrict any use of the information to criminally investigate or prosecute any alcohol or drug abuse patient.[facility] CenterIn the event this information is protected by the Federal Confidentiality of Alcohol and Drug Abuse Patient Records regulations: The Federal rules restrict any use of the information to criminally investigate or prosecute any alcohol or drug abuse patient.[facility] CenterIn the event this information is protected by the Federal Confidentiality of Alcohol and Drug Abuse Patient Records regulations: The Federal rules restrict any use of the information to criminally investigate or prosecute any alcohol or drug abuse patient.[facility] CenterIn the event this information is protected by the Federal Confidentiality of Alcohol and Drug Abuse Patient Records regulations: The Federal rules restrict any use of the information to criminally investigate or prosecute any alcohol or drug abuse patient.[facility] CenterIn the event this information is protected by the Federal Confidentiality of Alcohol and Drug Abuse Patient Records regulations: The Federal rules restrict any use of the information to criminally investigate or prosecute any alcohol or drug abuse patient.[facility] CenterIn the event this information is protected by the Federal Confidentiality of Alcohol and Drug Abuse Patient Records regulations: The Federal rules restrict any use of the information to criminally investigate or prosecute any alcohol or drug abuse patient.[facility] CenterIn the event this information is protected by the Federal Confidentiality of Alcohol and Drug Abuse Patient Records regulations: The Federal rules restrict any use of the information to criminally investigate or prosecute any alcohol or drug abuse patient.[facility] CenterIn the event this information is protected by the Federal Confidentiality of Alcohol and Drug Abuse Patient Records regulations: The Federal rules restrict any use of the information to criminally investigate or prosecute any alcohol or drug abuse patient.[facility] CenterIn the event this information is protected by the Federal Confidentiality of Alcohol and Drug Abuse Patient Records regulations: The Federal rules restrict any use of the information to criminally investigate or prosecute any alcohol or drug abuse patient.[facility]In the event this information is protected by the Federal Confidentiality of Alcohol and Drug Abuse Patient Records regulations: The Federal rules restrict any use of the information to criminally investigate or prosecute any alcohol or drug abuse patient.[facility]In the event this information is protected by the Federal Confidentiality of Alcohol and Drug Abuse Patient Records regulations: The Federal rules restrict any use of the information to criminally investigate or prosecute any alcohol or drug abuse patient.[facility]In the event this information is protected by the Federal Confidentiality of Alcohol and Drug Abuse Patient Records regulations: The Federal rules restrict any use of the information to criminally investigate or prosecute any alcohol or drug abuse patient.[facility]In the event this information is protected by the Federal Confidentiality of Alcohol and Drug Abuse Patient Records regulations: The Federal rules restrict any use of the information to criminally investigate or prosecute any alcohol or drug abuse patient.[facility]In the event this information is protected by the Federal Confidentiality of Alcohol and Drug Abuse Patient Records regulations: The Federal rules restrict any use of the information to criminally investigate or prosecute any alcohol or drug abuse patient.[facility]In the event this information is protected by the Federal Confidentiality of Alcohol and Drug Abuse Patient Records regulations: The Federal rules restrict any use of the information to criminally investigate or prosecute any alcohol or drug abuse patient.[facility]In the event this information is protected by the Federal Confidentiality of Alcohol and Drug Abuse Patient Records regulations: The Federal rules restrict any use of the information to criminally investigate or prosecute any alcohol or drug abuse patient.[facility]In the event this information is protected by the Federal Confidentiality of Alcohol and Drug Abuse Patient Records regulations: The Federal rules restrict any use of the information to criminally investigate or prosecute any alcohol or drug abuse patient.[facility]In the event this information is protected by the Federal Confidentiality of Alcohol and Drug Abuse Patient Records regulations: The Federal rules restrict any use of the information to criminally investigate or prosecute any alcohol or drug abuse patient.[facility]In the event this information is protected by the Federal Confidentiality of Alcohol and Drug Abuse Patient Records regulations: The Federal rules restrict any use of the information to criminally investigate or prosecute any alcohol or drug abuse patient.[facility]In the event this information is protected by the Federal Confidentiality of Alcohol and Drug Abuse Patient Records regulations: The Federal rules restrict any use of the information to criminally investigate or prosecute any alcohol or drug abuse patient.[facility]In the event this information is protected by the Federal Confidentiality of Alcohol and Drug Abuse Patient Records regulations: The Federal rules restrict any use of the information to criminally investigate or prosecute any alcohol or drug abuse patient.[facility]In the event this information is protected by the Federal Confidentiality of Alcohol and Drug Abuse Patient Records regulations: The Federal rules restrict any use of the information to criminally investigate or prosecute any alcohol or drug abuse patient.[facility]In the event this information is protected by the Federal Confidentiality of Alcohol and Drug Abuse Patient Records regulations: The Federal rules restrict any use of the information to criminally investigate or prosecute any alcohol or drug abuse patient.[facility]In the event this information is protected by the Federal Confidentiality of Alcohol and Drug Abuse Patient Records regulations: The Federal rules restrict any use of the information to criminally investigate or prosecute any alcohol or drug abuse patient.[facility]In the event this information is protected by the Federal Confidentiality of Alcohol and Drug Abuse Patient Records regulations: The Federal rules restrict any use of the information to criminally investigate or prosecute any alcohol or drug abuse patient.[facility]In the event this information is protected by the Federal Confidentiality of Alcohol and Drug Abuse Patient Records regulations: The Federal rules restrict any use of the information to criminally investigate or prosecute any alcohol or drug abuse patient.[facility]In the event this information is protected by the Federal Confidentiality of Alcohol and Drug Abuse Patient Records regulations: The Federal rules restrict any use of the information to criminally investigate or prosecute any alcohol or drug abuse patient.[facility]In the event this information is protected by the Federal Confidentiality of Alcohol and Drug Abuse Patient Records regulations: The Federal rules restrict any use of the information to criminally investigate or prosecute any alcohol or drug abuse patient.[facility]In the event this information is protected by the Federal Confidentiality of Alcohol and Drug Abuse Patient Records regulations: The Federal rules restrict any use of the information to criminally investigate or prosecute any alcohol or drug abuse patient.[facility]In the event this information is protected by the Federal Confidentiality of Alcohol and Drug Abuse Patient Records regulations: The Federal rules restrict any use of the information to criminally investigate or prosecute any alcohol or drug abuse patient.[facility]In the event this information is protected by the Federal Confidentiality of Alcohol and Drug Abuse Patient Records regulations: The Federal rules restrict any use of the information to criminally investigate or prosecute any alcohol or drug abuse patient.[facility]In the event this information is protected by the Federal Confidentiality of Alcohol and Drug Abuse Patient Records regulations: The Federal rules restrict any use of the information to criminally investigate or prosecute any alcohol or drug abuse patient.[facility]In the event this information is protected by the Federal Confidentiality of Alcohol and Drug Abuse Patient Records regulations: The Federal rules restrict any use of the information to criminally investigate or prosecute any alcohol or drug abuse patient.[facility]In the event this information is protected by the Federal Confidentiality of Alcohol and Drug Abuse Patient Records regulations: The Federal rules restrict any use of the information to criminally investigate or prosecute any alcohol or drug abuse patient.[facility]In the event this information is protected by the Federal Confidentiality of Alcohol and Drug Abuse Patient Records regulations: The Federal rules restrict any use of the information to criminally investigate or prosecute any alcohol or drug abuse patient.[facility]In the event this information is protected by the Federal Confidentiality of Alcohol and Drug Abuse Patient Records regulations: The Federal rules restrict any use of the information to criminally investigate or prosecute any alcohol or drug abuse patient.[facility]In the event this information is protected by the Federal Confidentiality of Alcohol and Drug Abuse Patient Records regulations: The Federal rules restrict any use of the information to criminally investigate or prosecute any alcohol or drug abuse patient.[facility]In the event this information is protected by the Federal Confidentiality of Alcohol and Drug Abuse Patient Records regulations: The Federal rules restrict any use of the information to criminally investigate or prosecute any alcohol or drug abuse patient.[facility]In the event this information is protected by the Federal Confidentiality of Alcohol and Drug Abuse Patient Records regulations: The Federal rules restrict any use of the information to criminally investigate or prosecute any alcohol or drug abuse patient.[facility]In the event this information is protected by the Federal Confidentiality of Alcohol and Drug Abuse Patient Records regulations: The Federal rules restrict any use of the information to criminally investigate or prosecute any alcohol or drug abuse patient.[facility]In the event this information is protected by the Federal Confidentiality of Alcohol and Drug Abuse Patient Records regulations: The Federal rules restrict any use of the information to criminally investigate or prosecute any alcohol or drug abuse patient.[facility]In the event this information is protected by the Federal Confidentiality of Alcohol and Drug Abuse Patient Records regulations: The Federal rules restrict any use of the information to criminally investigate or prosecute any alcohol or drug abuse patient.[facility]In the event this information is protected by the Federal Confidentiality of Alcohol and Drug Abuse Patient Records regulations: The Federal rules restrict any use of the information to criminally investigate or prosecute any alcohol or drug abuse patient.[facility]In the event this information is protected by the Federal Confidentiality of Alcohol and Drug Abuse Patient Records regulations: The Federal rules restrict any use of the information to criminally investigate or prosecute any alcohol or drug abuse patient.[facility]In the event this information is protected by the Federal Confidentiality of Alcohol and Drug Abuse Patient Records regulations: The Federal rules restrict any use of the information to criminally investigate or prosecute any alcohol or drug abuse patient.[facility]In the event this information is protected by the Federal Confidentiality of Alcohol and Drug Abuse Patient Records regulations: The Federal rules restrict any use of the information to criminally investigate or prosecute any alcohol or drug abuse patient.[facility]In the event this information is protected by the Federal Confidentiality of Alcohol and Drug Abuse Patient Records regulations: The Federal rules restrict any use of the information to criminally investigate or prosecute any alcohol or drug abuse patient.[facility]In the event this information is protected by the Federal Confidentiality of Alcohol and Drug Abuse Patient Records regulations: The Federal rules restrict any use of the information to criminally investigate or prosecute any alcohol or drug abuse patient.[facility]In the event this information is protected by the Federal Confidentiality of Alcohol and Drug Abuse Patient Records regulations: The Federal rules restrict any use of the information to criminally investigate or prosecute any alcohol or drug abuse patient.[facility]In the event this information is protected by the Federal Confidentiality of Alcohol and Drug Abuse Patient Records regulations: The Federal rules restrict any use of the information to criminally investigate or prosecute any alcohol or drug abuse patient.[facility]In the event this information is protected by the Federal Confidentiality of Alcohol and Drug Abuse Patient Records regulations: The Federal rules restrict any use of the information to criminally investigate or prosecute any alcohol or drug abuse patient.[facility]In the event this information is protected by the Federal Confidentiality of Alcohol and Drug Abuse Patient Records regulations: The Federal rules restrict any use of the information to criminally investigate or prosecute any alcohol or drug abuse patient.[facility]In the event this information is protected by the Federal Confidentiality of Alcohol and Drug Abuse Patient Records regulations: The Federal rules restrict any use of the information to criminally investigate or prosecute any alcohol or drug abuse patient.[facility]In the event this information is protected by the Federal Confidentiality of Alcohol and Drug Abuse Patient Records regulations: The Federal rules restrict any use of the information to criminally investigate or prosecute any alcohol or drug abuse patient.[facility]In the event this information is protected by the Federal Confidentiality of Alcohol and Drug Abuse Patient Records regulations: The Federal rules restrict any use of the information to criminally investigate or prosecute any alcohol or drug abuse patient.[facility]In the event this information is protected by the Federal Confidentiality of Alcohol and Drug Abuse Patient Records regulations: The Federal rules restrict any use of the information to criminally investigate or prosecute any alcohol or drug abuse patient.[facility]In the event this information is protected by the Federal Confidentiality of Alcohol and Drug Abuse Patient Records regulations: The Federal rules restrict any use of the information to criminally investigate or prosecute any alcohol or drug abuse patient.[facility]In the event this information is protected by the Federal Confidentiality of Alcohol and Drug Abuse Patient Records regulations: The Federal rules restrict any use of the information to criminally investigate or prosecute any alcohol or drug abuse patient.[facility]In the event this information is protected by the Federal Confidentiality of Alcohol and Drug Abuse Patient Records regulations: The Federal rules restrict any use of the information to criminally investigate or prosecute any alcohol or drug abuse patient.[facility]In the event this information is protected by the Federal Confidentiality of Alcohol and Drug Abuse Patient Records regulations: The Federal rules restrict any use of the information to criminally investigate or prosecute any alcohol or drug abuse patient.[facility]In the event this information is protected by the Federal Confidentiality of Alcohol and Drug Abuse Patient Records regulations: The Federal rules restrict any use of the information to criminally investigate or prosecute any alcohol or drug abuse patient.[facility] CenterIn the event this information is protected by the Federal Confidentiality of Alcohol and Drug Abuse Patient Records regulations: The Federal rules restrict any use of the information to criminally investigate or prosecute any alcohol or drug abuse patient.[facility] Center[facility] the event this information is protected by the Federal Confidentiality of Alcohol and Drug Abuse Patient Records regulations: The Federal rules restrict any use of the information to criminally investigate or prosecute any alcohol or drug abuse patient.[facility] CenterIn the event this information is protected by the Federal Confidentiality of Alcohol and Drug Abuse Patient Records regulations: The Federal rules restrict any use of the information to criminally investigate or prosecute any alcohol or drug abuse patient.[facility] Center[facility] the event this information is protected by the Federal Confidentiality of Alcohol and Drug Abuse Patient Records regulations: The Federal rules restrict any use of the information to criminally investigate or prosecute any alcohol or drug abuse patient.[facility] Center[facility] the event this information is protected by the Federal Confidentiality of Alcohol and Drug Abuse Patient Records regulations: The Federal rules restrict any use of the information to criminally investigate or prosecute any alcohol or drug abuse patient.[facility] CenterIn the event this information is protected by the Federal Confidentiality of Alcohol and Drug Abuse Patient Records regulations: The Federal rules restrict any use of the information to criminally investigate or prosecute any alcohol or drug abuse patient.[facility] CenterIn the event this information is protected by the Federal Confidentiality of Alcohol and Drug Abuse Patient Records regulations: The Federal rules restrict any use of the information to criminally investigate or prosecute any alcohol or drug abuse patient.[facility] CenterIn the event this information is protected by the Federal Confidentiality of Alcohol and Drug Abuse Patient Records regulations: The Federal rules restrict any use of the information to criminally investigate or prosecute any alcohol or drug abuse patient.[facility] CenterIn the event this information is protected by the Federal Confidentiality of Alcohol and Drug Abuse Patient Records regulations: The Federal rules restrict any use of the information to criminally investigate or prosecute any alcohol or drug abuse patient.[facility] CenterIn the event this information is protected by the Federal Confidentiality of Alcohol and Drug Abuse Patient Records regulations: The Federal rules restrict any use of the information to criminally investigate or prosecute any alcohol or drug abuse patient.[facility] Reason for Visit (unrecogniz ed section and content) Reason Comments Physical Therapy Specialty Diagnoses / Procedures Referred By Bhupinder barreto Referred To Contact [facility] Diagnoses Subarachnoid hemorrhage (HCC) Procedures CONSULT TO PHYSICAL THERAPY PHYSICAL THERAPY EVALUATION HIGH COMPLEX 45 MINS Iris Benoit PA-C [address] [place] [address] [facility] [address] [place] [address] Referral ID Status Reason Start Date Expiration Date Visits Requested Visits Authorized [id number] Authorized PCP Requested Referral Auto-Generate d Referral [...] CT Specialty Diagnoses / Procedures Referred By Bhupinder t Referred To Contact CT IMAGING Diagnoses SAH (subarachnoid hemorrhage) (HCC) Procedures CT BRAIN WO IVCON CT HEAD/BRAIN W/O CONTRAST MATERIAL Dulce Vallejo, NIRMAL [address] [place] [address] [place] [address] Referral ID Status Reason Start Date Expiration Date V isits Requested Visits Authorized [id number] Closed Auto-Generate d Referral 10/03/2023 11/01/2024 1 [...] injury Procedures CONSULT TO SPEECH THERAPY OFFICE/OUTPATIENT [facility] 60 MINUTES Ailyn Bonner, MANAGER PLAN.CHRISTMAS BELL RINGER [address] [place] [address] [facility] [address] [place] [address] Referral ID Status Reason Start Date Expiration Date Visits Requested Visits Authorized [id number] Authorized Auto-Generat ed Referral 01/06/2024 01/05/2025 99 [...] CONSULT TO SLEEP MEDICINE - ADULT OFFICE/OUTPATIENT [facility] 60 MINUTES Ailyn Bonner, MANAGER PLAN.CHRISTMAS BELL RINGER [address] [place] [address] Referral ID Status Reason Start Date Expiration Date V isits Requested Visits Authorized [id number] Closed PCP Requested Referral 01/06/2024 01/05/2025 1 1 Reason Comments Follow Up Reason Comments PT Eval Reason Onset Date Comments Refill Request 05/02/2024 Reason Comments Evaluate for hypoxia per [facility]AT Reason Comments Referral Request Reason Comments Appointment Reason Comments New Patient Had white spots in out 05/13, most of them are gone nowThroat mckeon when swallowing liquids-except milk Specialty Diagnoses / Procedures Referred By Contac t Referred To Contact Ent - Otolaryngology Diagnoses Odynophagia Oral thrush Procedures CONSULT TO ENT OFFICE/OUTPATIENT [facility] 60 MINUTES Dia Nixon, MANAGER PLAN.CHRISTMAS BELL RINGER [address] [place] [address] Referral ID Status Reason Start Date Expiration Date V isits Requested Visits Authorized [id number] Closed PCP Requested Referral 05/13/2024 05/13/2025 1 1 Reason Comments Orders Reason Comments Follow Up From PT Reason Comments Patient Update Reason Comments faxed orders to [facility]- polysomnogram Reason Onset Date Comments Refill Request [...] Procedures CONSULT TO GERIATRICS OFFICE/OUTPATIENT NEW HIGH MDM 60 MINUTES Ken Whelan MD [address] [place] [address] Phone: tel: fax: Referral ID Status Reason Start Date Expiration Date V isits Requested Visits Authorized [id number] Closed PCP Requested Referral 12/01/2024 12/01/2025 1 1 Reason Comments New Pain Specialty Diagnoses / Procedures Referred By Contac t Referred To Contact Orthopedics Diagnoses Hip pain, left Procedures CONSULT TO ORTHOPAEDICS OFFICE/OUTPATIENT NEW HIGH MDM 60 MINUTES Ken Whelan MD [facility] [place] [address] Phone: tel: fax: Referral ID Status Reason Start Date Expiration Date V isits Requested Visits Authorized [id number] Closed PCP Requested Referral 11/29/2024 11/29/2025 1 1 Reason Comments Fax Request Reason Comments Depression Hip Pain Shortness of Breath Reason Comments Request for records Reason Comments Spirometry Specialty Diagnoses / Procedures Referred By Contac t Referred [facility] Diagnoses MARTINES (dyspnea on exertion) Procedures SPIROMETRY - BASELINE AND POST DILATOR BRNCDILAT RSPSE SPMTRY PRE&POST-BRNCDILAT ADMCami Lindsay MD [facility] [place] [address] Phone: tel: fax: [facility] [address] [place] [address] Referral ID Status Reason Start Date Expiration Date V isits Requested Visits Authorized [id number] Closed Auto-Generate d Referral 01/25/2025 02/24/2026 1 1 Specialty Diagnoses / Procedures Referred By Contac t Referred [facility] Diagnoses MARTINES (dyspnea on exertion) Procedures LUNG VOLUMES Cami Mars MD [address] [place] [address] Phone: tel: fax: [facility] [address] [place] [address] Referral ID Status Reason Start Date Expiration Date V isits Requested Visits Authorized [id number] Closed Auto-Generate d Referral 01/25/2025 02/24/2026 1 1 Reason Comments [facility] Scheduling dept requesting records Reason Comments Head Injury Reason Comments 4 week follow-up Reason Onset Date Comments Refill Request 03/04/2025 Reason Comments Constipation Reason Comments New Patient Reason Comments Cough Cough, fever LIGHT and sweating x 3 days Reason Onset Date Comments Results 03/28/2025 Reason Onset Date Comments Refill Request 04/06/2025 Reason Comments Refill Request Reason Comments Established Patient Follow-Up bronchiectasis Asthma Reason Onset Date Comments Refill Request 04/27/2025 Care Teams (unrecognized sec tion and content) Shingle Carrier Relationship Specialty Start Date End Date Ken Whelan MD [address] [place], [place] [id number] PCP - General Internal Medicine 05/01/17 Marquise Javed [address] [place] [phone] Cardiology 05/01/21 Shingle Carrier Relationship Specialty Start Date End Date Ken Whelan MD [address] [place], [place] [id number] PCP - General Internal Medicine 05/01/17 Marquise Javed [address]Rianna ALLEN [address] [place] [address] Cardiology 05/01/21 Shingle Carrier Relationship Specialty Start Date End Date Ken Whelan MD [address] [place] [address] PCP - General Internal Medicine 05/01/17 Marquise Javed [address] [place] [address] Cardiology 05/01/21 Shingle Carrier Relationship Specialty Start Date End Date Ken Whelan MD [address] [place] [address] PCP - General Internal Medicine 05/01/17 Marquise Javed [address] [place] [address] Cardiology 05/01/21 Shingle Carrier Relationship Specialty Start Date End Date Ken Whelan MD [address] [place] [address] PCP - General Internal Medicine 05/01/17 Marquise Javed [address] [place] [address] Cardiology 05/01/21 Shingle Carrier Relationship Specialty Start Date End Date Ken Whelan MD [address] [place] [address] PCP - General Internal Medicine 05/01/17 Marquise Javed [address] [place] [address] Cardiology 05/01/21 Shingle Carrier Relationship Specialty Start Date End Date Ken Whelan MD [address] [place] [address] PCP - General Internal Medicine 05/01/17 Marquise Javed [address] [place] [address] Cardiology 05/01/21 Shingle Carrier Relationship Specialty Start Date End Date Ken Whelan MD [address] [place] [address] PCP - General Internal Medicine 05/01/17 Marquise Javed [address] [place] [address] Cardiology 05/01/21 Shingle Carrier Relationship Specialty Start Date End Date Ken Whelan MD [address] [place] [address] PCP - General Internal Medicine 05/01/17 Marquise Javed [address] [place] [address] Cardiology 05/01/21 Shingle Carrier Relationship Specialty Start Date End Date Ken Whelan MD [address] [place] [address] PCP - General Internal Medicine 05/01/17 Marquise Javed [address] [place] [address] Cardiology 05/01/21 Shingle Carrier Relationship Specialty Start Date End Date Ken Whelan MD [address] [place] [address] PCP - General Internal Medicine 05/01/17 Marquise Javed [address] [place] [address] Cardiology 05/01/21 Shingle Carrier Relationship Specialty Start Date End Date Ken Whelan MD [address] [place] [address] PCP - General Internal Medicine 05/01/17 Marquise Javed [address] [place] [address] Cardiology 05/01/21 Shingle Carrier Relationship Specialty Start Date End Date Ken Whelan MD [address] [place] [address] PCP - General Internal Medicine 05/01/17 Marquise Javed [address] [place] [address] Cardiology 05/01/21 Shingle Carrier Relationship Specialty Start Date End Date Ken Whelan MD [address] [place] [address] PCP - General Internal Medicine 05/01/17 Marquise Javed [address] [place] [address] Cardiology 05/01/21 Shingle Carrier Relationship Specialty Start Date End Date Ken Whelan MD [address] [place] [address] PCP - General Internal Medicine 05/01/17 Marquise Javed [address] [place] [address] Cardiology 05/01/21 Team Status: Active Member Role Status Dates Dr. Ken Whelan MD Family Provider Active Dr. Ken Whelan MD Primary Care Provider Active Team Status: Inactive Member Role Status Dates Dr. Ken Whelan MD Primary Care Provider Active Taylor Arce Active Dr. Zane Mcpherson MD Attending Provider, Referring Pro vider Active Team Status: Inactive Member Role Status Dates Dr. Ken Whelan MD Primary Care Provider Active Dr. Arturo Greer MD Emergency Provider Active Shingle Carrier Relationship Specialty Start Date End Date Ken Whelan MD [address] [place] [address] PCP - General Internal Medicine 05/01/17 Marquise Javed [address] [phone] Cardiology 05/01/21 Shingle Carrier Relationship Specialty Start Date End Date Ken Whelan MD [address] [place] [address] PCP - General Internal Medicine 05/01/17 Marquise Javed [address] [phone] Cardiology 05/01/21 Team Status: Inactive Member Role Status Dates Dr. Ken Whelan MD Primary Care Provider, Refer ring Provider Active Dr. Jaswant Luevano DO Attending Provider Active Team Status: Inactive Member Role Status Dates Dr. Ken Whelan MD Primary Care Provider, Refer ring Provider Active Amanda Daugherty HOOP BENDING MACHINE OPERATOR, HOOP BENDING MACHINE OPERATOR-C Attending Provider Active Team Status: Inactive Member Role Status Dates Dr. Ken Whelan MD Primary Care Provider Active Amanda Daugherty HOOP BENDING MACHINE OPERATOR, HOOP BENDING MACHINE OPERATOR-C Attending Provider, Referring P suzette Active Team Status: Inactive Member Role Status Dates Dr. Ken Whelan MD Primary Care Provider Active Dr. Janett Her MD Emergency Provider Active Shingle Carrier Relationship Specialty Start Date End Date Ken Whelan MD [address] [facility], [place] [address] PCP - General Internal Medicine 05/01/17 Marquise Javed [address] [address] Cardiology 05/01/21 Team Status: Inactive Member Role Status Dates Dr. Ken Whelan MD Primary Care Provider Active Dr. Janett Her MD Attending Provider, Emergency Provider Active Team Status: Inactive Member Role Status Dates Dr. Ken Whelan MD Primary Care Provider Active Dr. Teri Lozano DO Emergency Provider Active Shingle Carrier Relationship Specialty Start Date End Date Ken Whelan MD [address] [place] [address] PCP - General Internal Medicine 05/01/17 Marquise Javed [address] [address] Cardiology 05/01/21 Shingle Carrier Relationship Specialty Start Date End Date Ken Whelan MD [address] [place] [address] PCP - General Internal Medicine 05/01/17 Marquise Javed [address] [address] Cardiology 05/01/21 Shingle Carrier Relationship Specialty Start Date End Date Ken Whelan MD [address] [place] [address] PCP - General Internal Medicine 05/01/17 Marquise Javed MD [address] [address] Cardiology 05/01/21 Shingle Carrier Relationship Specialty Start Date End Date Ken Whelan MD [address] [place] [address] PCP - General Internal Medicine 05/01/17 Marqiuse Javed MD [address] [address] Cardiology 05/01/21 Team Status: Inactive Member Role Status Dates Dr. Ken Whelan MD Primary Care Provider, Refer ring Provider Active Taylor Arce Attending Provider Active Shingle Carrier Relationship Specialty Start Date End Date Ken Whelan MD [address] [place] [address] PCP - General Internal Medicine 05/01/17 Marquise Javed MD [address] [address] Cardiology 05/01/21 Shingle Carrier Relationship Specialty Start Date End Date Ken Whelan MD [address] [place] [address] PCP - General Internal Medicine 05/01/17 Marquise Javed MD [address] [address] Cardiology 05/01/21 Maddie Raphael, DIONTE [address] [place] [id number] Primary Care Hand Candy Molder 10/06/23 Shingle Carrier Relationship Specialty Start Date End Date Ken Whelan MD [address] [place] [address] PCP - General Internal Medicine 05/01/17 Marquise Javed MD [address] [place] [address] Cardiology 05/01/21 Maddie Raphael, RN [address] [place], [place] [id number] Primary Care Hand Candy Molder 10/06/23 Shingle Carrier Relationship Specialty Start Date End Date Ken Whelan MD [address] [place] [address] PCP - General Internal Medicine 05/01/17 Marquise Javed MD [address] [place] [address] Cardiology 05/01/21 Maddie Raphael, DIONTE [address] [place] [address] Primary Care Hand Candy Molder 10/06/23 Shingle Carrier Relationship Specialty Start Date End Date Ken Whelan MD [address] [place] [address] PCP - General Internal Medicine 05/01/17 Marquise Javed MD [address] [place] [address] Cardiology 05/01/21 Maddie Raphael, DIONTE [address] [place] [address] Primary Care Hand Candy Molder 10/06/23 Shingle Carrier Relationship Specialty Start Date End Date Ken Whelan MD [address] [place] [address] PCP - General Internal Medicine 05/01/17 Marquise Javed MD [address] [place] [address] Cardiology 05/01/21 Maddie Raphael, DIONTE [address] [place] [address] Primary Care Hand Candy Molder 10/06/23 11/04/23 Shingle Carrier Relationship Specialty Start Date End Date Ken Whelan MD [address] [place] [address] PCP - General Internal Medicine 05/01/17 Marquise Javed MD [address] [place] [address] Cardiology 05/01/21 Maddie Raphael, DIONTE [address] [place] [address] Primary Care Hand Candy Molder 10/06/23 11/04/23 Shingle Carrier Relationship Specialty Start Date End Date Ken Whelan MD [address] [place] [address] PCP - General Internal Medicine 05/01/17 Marquise Javed MD [address] [place] [address] Cardiology 05/01/21 Shingle Carrier Relationship Specialty Start Date End Date Ken Whelan MD [address] [place] [address] PCP - General Internal Medicine 05/01/17 Marquise Javed MD [address] [place] [address] Cardiology 05/01/21 Shingle Carrier Relationship Specialty Start Date End Date Ken Whelan MD [address] [place] [address] PCP - General Internal Medicine 05/01/17 Marquise Javed MD [address] [place] [address] Cardiology 05/01/21 Shingle Carrier Relationship Specialty Start Date End Date Ken Whelan MD [address] [place] [address] PCP - General Internal Medicine 05/01/17 Marquise Javed MD [address] [place] [address] Cardiology 05/01/21 Shingle Carrier Relationship Specialty Start Date End Date Ken Whelan MD [address] [place] [address] PCP - General Internal Medicine 05/01/17 Marquise Javed MD [address] [place] [address] Cardiology 05/01/21 Shingle Carrier Relationship Specialty Start Date End Date Ken Whelan MD [address] [place] [address] PCP - General Internal Medicine 05/01/17 Marquise Javed MD [address] [address] Cardiology 05/01/21 Shingle Carrier Relationship Specialty Start Date End Date Ken Whelan MD [address] [place] [address] PCP - General Internal Medicine 05/01/17 Marquise Javed MD [address] [place] [address] Cardiology 05/01/21 Shingle Carrier Relationship Specialty Start Date End Date Ken Whelan MD [address] [place] [address] PCP - General Internal Medicine 05/01/17 Marquise Javed MD [address] [place] [address] Cardiology 05/01/21 Shingle Carrier Relationship Specialty Start Date End Date Ken Whelan MD [address] [place] [address] PCP - General Internal Medicine 05/01/17 Marquise Javed MD [address] [address] Cardiology 05/01/21 Shingle Carrier Relationship Specialty Start Date End Date Ken Whelan MD [address] [place] [address] PCP - General Internal Medicine 05/01/17 Marquise Javed MD [address] [address] Cardiology 05/01/21 Shingle Carrier Relationship Specialty Start Date End Date Ken Whelan MD [address] [place] [address] PCP - General Internal Medicine 05/01/17 Marquise Javde MD [address] [place] [address], [place] [address] Cardiology 05/01/21 Shingle Carrier Relationship Specialty Start Date End Date Ken Whelan MD [address] [place] [address] PCP - General Internal Medicine 05/01/17 Marquise Javed MD [address] [place] [address] Cardiology 05/01/21 Shingle Carrier Relationship Specialty Start Date End Date Ken Whelan MD [address] [place] [address] PCP - General Internal Medicine 05/01/17 Marquise Javed MD [address] [place] [address] Cardiology 05/01/21 Shingle Carrier Relationship Specialty Start Date End Date Ken Whelan MD [address] [place] [address] PCP - General Internal Medicine 05/01/17 Marquise Javed MD [address] [place] [address] Cardiology 05/01/21 Shingle Carrier Relationship Specialty Start Date End Date Ken Whelan MD [address] [place] [address] PCP - General Internal Medicine 05/01/17 Marquise Javed MD [address] [place] [address] Cardiology 05/01/21 Shingle Carrier Relationship Specialty Start Date End Date Ken Whelan MD [address] [place] [address] PCP - General Internal Medicine 05/01/17 Marquise Javed MD [address] [place] [address] Cardiology 05/01/21 Shingle Carrier Relationship Specialty Start Date End Date Ken Whelan MD [address] [place] [address] PCP - General Internal Medicine 05/01/17 Marquise Javed MD [address] [place] [address] Cardiology 05/01/21 Shingle Carrier Relationship Specialty Start Date End Date Ken Whelan MD [address] [place] [address] PCP - General Internal Medicine 05/01/17 Marquise Javed MD [address] [place] [address] Cardiology 05/01/21 Shingle Carrier Relationship Specialty Start Date End Date Ken Whelan MD [address] [place] [address] PCP - General Internal Medicine 05/01/17 Marquise Javed MD [address] [place] [address] Cardiology 05/01/21 Dia Nixon, MANAGER PLAN.CHRISTMAS BELL RINGER [address] [place] [place] [address] Patient Support Partner Internal Medicine 08/15/24 Shingle Carrier Relationship Specialty Start Date End Date Ken Whelan MD [address] [facility] [place] [address] PCP - General Internal Medicine 05/01/17 Marquise Javed MD [address] [place] [address] Cardiology 05/01/21 Dia Nixon, MANAGER PLAN.CHRISTMAS BELL RINGER [address] [facility] [place] [address] [facility] Internal Medicine 08/15/24 Shingle Carrier Relationship Specialty Start Date End Date Ken Whelan MD [address] [facility] [place] [address] PCP - General Internal Medicine 05/01/17 Marquise Javed MD [address] [place] [address] Cardiology 05/01/21 Dia Nixon, MANAGER PLAN.CHRISTMAS BELL RINGER [address] [place] [place] [address] [facility] Internal Medicine 08/15/24 Shingle Carrier Relationship Specialty Start Date End Date Ken Whelan MD [address] [facility] [place] [address] PCP - General Internal Medicine 05/01/17 Marquise Javed MD [address] [place] [address] Cardiology 05/01/21 Dia Nixon, MANAGER PLAN.CHRISTMAS BELL RINGER [address] [place] [address] Patient Support Partner Internal Medicine 08/15/24 Shingle Carrier Relationship Specialty Start Date End Date Ken Whelan MD [address] [facility] [place] [address] PCP - General Internal Medicine 05/01/17 Marquise Javed MD [address] [place] [address] Cardiology 05/01/21 Dia Nixon, MANAGER PLAN.CHRISTMAS BELL RINGER [address] [place] [address] Patient Support Partner Internal Medicine 08/15/24 Shingle Carrier Relationship Specialty Start Date End Date Ken Whelan MD [address] [place] [address] PCP - General Internal Medicine 05/01/17 Marquise Javed MD [address] [place] [address] Cardiology 05/01/21 Dia Nixon, MANAGER PLAN.CHRISTMAS BELL RINGER [address] [place] [address] Patient Support Partner Internal Medicine 08/15/24 Shingle Carrier Relationship Specialty Start Date End Date Ken Whelan MD [address] [place] [address] PCP - General Internal Medicine 05/01/17 Marquise Javed MD [address] [place] [address] Cardiology 05/01/21 Dia Nixon, MANAGER PLAN.CHRISTMAS BELL RINGER [address] [place] [address] Patient Support Partner Internal Medicine 08/15/24 Najma John, teacher of the handicappedAutomobile Accessories Salesperson 11/01/24 Shingle Carrier Relationship Specialty Start Date End Date Ken Whelan MD [address] [place] [address] PCP - General Internal Medicine 05/01/17 Marquise Javed MD [address] [place] [address] Cardiology 05/01/21 Dia Nixon, MANAGER PLAN.CHRISTMAS BELL RINGER [address] [place] [address] Patient Support Partner Internal Medicine 08/15/24 Najma John, teacher of the handicappedAutomobile Accessories Salesperson 11/01/24 Shingle Carrier Relationship Specialty Start Date End Date Ken Whelan MD [address] [place] [address] PCP - General Internal Medicine 05/01/17 Marquise Javed MD [address] [place] [address] Cardiology 05/01/21 Dia Nixon, MANAGER PLAN.CHRISTMAS BELL RINGER [address] [place] [address] Patient Support Partner Internal Medicine 08/15/24 Najma John, teacher of the handicappedAutomobile Accessories Salesperson 11/01/24 Shingle Carrier Relationship Specialty Start Date End Date Ken Whelan MD [address] [place] [address] PCP - General Internal Medicine 05/01/17 Marquise Javed MD [address] [place] [address] Cardiology 05/01/21 Dia Nixon, MANAGER PLAN.CHRISTMAS BELL RINGER [address] [place] [address] Patient Support Partner Internal Medicine 08/15/24 Najma John, teacher of the handicappedAutomobile Accessories Salesperson 11/01/24 Shingle Carrier Relationship Specialty Start Date End Date Ken Whelan MD [address] [place] [address] PCP - General Internal Medicine 05/01/17 Marquise Javed MD [address] [place] [address] Cardiology 05/01/21 Dia Nixon, MANAGER PLAN.CHRISTMAS BELL RINGER [address] [place] [address] Patient Support Partner Internal Medicine 08/15/24 Najma John teacher of the handicappedAutomobile Accessories Salesperson 11/01/24 Team Status: Active Member Role Status Dates Dr. Ken Whelan MD Primary Care Provider Active Team Status: Inactive Member Role Status Dates Dr. Ken Whelan MD Primary Care Provider Active Start: August 08, 2024 End: August 08, 2024 Dr. Shad Hunter MD Attending Provider Active Start: August 08, 2024 End: August 08, 2024 Dr. Shad Hunter MD Emergency Provider Active Start: August 08, 2024 End: August 08, 2024 Team Status: Active Member Role Status Dates Dr. Ken Whelan MD Primary Care Provider Active Start: August 26, 2024 Dr. Ken Whelan MD Attending Provider Active Start: August 26, 2024 Team Status: Inactive Member Role Status Dates Dr. Ken Whelan MD Primary Care Provider Active Start: September 05, 2024 End: September 05, 2024 Dr. Patrice Brady DO Attending Provider Active Start: September 05, 2024 End: September 05, 2024 Dr. Patrice Brady DO Emergency Provider Active Start: September 05, 2024 End: September 05, 2024 Team Status: Inactive Member Role Status Dates Dr. Ken Whelan MD Primary Care Provider Active Start: September 23, 2024 End: September 23, 2024 Dr. Zane Mcpherson MD Attending Provider Active S tart: September 23, 2024 End: September 23, 2024 Dr. Zane Mcpherson MD Referring Provider Active S tart: September 23, 2024 End: September 23, 2024 Team Status: Inactive Member Role Status Dates Dr. Ken Whelan MD Primary Care Provider Active Start: October 12, 2024 End: October 12, 2024 Dr. Jann Mello MD Attending Provider Active Start: October 12, 2024 End: October 12, 2024 Dr. Jann Mello MD Referring Provider Active Start: October 12, 2024 End: October 12, 2024 Team Status: Inactive Member Role Status Dates Dr. Ken Whelan MD Primary Care Provider Active Start: November 11, 2024 End: November 11, 2024 POWER Maxwell Attending Provider Active Start: November 11, 2024 End: November 11, 2024 POWER Maxwell Referring Provider Active Start: November 11, 2024 End: November 11, 2024 Shingle Carrier Relationship Specialty Start Date End Date Ken Whelan MD [address] [place] [address] PCP - General Internal Medicine 05/01/17 Marquise Javed MD [address] [place] [address] Cardiology 05/01/21 Dia Nixon, MANAGER PLAN.CHRISTMAS BE[employer] RINGER [address] [place] [address] Patient Support Partner Internal Medicine 08/15/24 Najma John teacher of the handicappedAutomobile Accessories Salesperson 11/01/24 Shingle Carrier Relationship Specialty Start Date End Date Ken Whelan MD [address] [place] [address] PCP - General Internal Medicine 05/01/17 Marquise Javed MD [address] [place] [address] Cardiology 05/01/21 Dia Nixon, MANAGER PLAN.CHRISTMAS BELL RINGER [address] [place] [address] Patient Support Partner Internal Medicine 08/15/24 Najma John teacher of the handicappedAutomobile Accessories Salesperson 11/01/24 Shingle Carrier Relationship Specialty Start Date End Date Ken Whelan MD [address] [place] [address] PCP - General Internal Medicine 05/01/17 Marquise Javed MD [address] [place] [address] Cardiology 05/01/21 Dia Nixon, MANAGER PLAN.CHRISTMAS BELL RINGER [address] [place] [address] Patient Support Partner Internal Medicine 08/15/24 Najma John, teacher of the handicappedAutomobile Accessories Salesperson 11/01/24 Shingle Carrier Relationship Specialty Start Date End Date Ken Whelan MD [address] [place] [address] PCP - General Internal Medicine 05/01/17 Marquise Javed MD [address] [place] [address] Cardiology 05/01/21 Dia Nixon, MANAGER PLAN.CHRISTMAS BELL RINGER [address] [place] [address] Patient Support Partner Internal Medicine 08/15/24 Najma John teacher of the handicappedAutomobile Accessories Salesperson 11/01/24 Shingle Carrier Relationship Specialty Start Date End Date Ken Whelan MD [address] [place] [address] PCP - General Internal Medicine 05/01/17 Marquise Javed MD [address] [place] [address] Cardiology 05/01/21 Dia Nixon, MANAGER PLAN.CHRISTMAS BELL RINGER [address] [facility] [place] [address] Patient Support Partner Internal Medicine 08/15/24 Najma John, teacher of the handicappedAutomobile Accessories Salesperson 11/01/24 Shingle Carrier Relationship Specialty Start Date End Date Ken Whelan MD [address] [facility] [place] [address] PCP - General Internal Medicine 05/01/17 Marquise Javed MD [address] [place] [address] Cardiology 05/01/21 Dia Nixon, MANAGER PLAN.CHRISTMAS BELL RINGER [address] [facility] [place] [address] Patient Support Partner Internal Medicine 08/15/24 Najma John, teacher of the handicappedAutomobile Accessories Salesperson 11/01/24 Shingle Carrier Relationship Specialty Start Date End Date Ken Whelan MD [address] [facility] [place] [address] PCP - General Internal Medicine 05/01/17 Marquise Javed MD [address] [place] [address] Cardiology 05/01/21 Dia Nixon, MANAGER PLAN.CHRISTMAS BELL RINGER [address] [place] [address] Patient Support Partner Internal Medicine 08/15/24 Shingle Carrier Relationship Specialty Start Date End Date Ken Whelan MD [address] [place] [address] PCP - General Internal Medicine 05/01/17 Marquise Javed MD [address] [place] [address] Cardiology 05/01/21 Dia Nixon, MANAGER PLAN.CHRISTMAS BE[employer] RINGER [address] [place] [address] Patient Support Partner Internal Medicine 08/15/24 Shingle Carrier Relationship Specialty Start Date End Date Ken Whelan MD [address] [place] [address] PCP - General Internal Medicine 05/01/17 Marquise Javed MD [address] [place] [address] Cardiology 05/01/21 Dia Nixon, MANAGER PLAN.CHRISTMAS BELL RINGER [address] [facility] [place] [address] Patient Support Partner Internal Medicine 08/15/24 Shingle Carrier Relationship Specialty Start Date End Date Ken Whelan MD [address] [place] [address] PCP - General Internal Medicine 05/01/17 Marquise Javed MD [address] [place] [address] Cardiology 05/01/21 Dia Nixon, MANAGER PLAN.CHRISTMAS BELL RINGER [address] [place] [address] [facility] Internal Medicine 08/15/24 Team Status: Inactive Member Role Status Dates Dr. Ken Whelan MD Primary Care Provider Active Start: December 23, 2024 End: December 23, 2024 Dr. Zane Mcpherson MD Attending Provider Active S tart: December 23, 2024 End: December 23, 2024 Team Status: Inactive Member Role Status Dates Dr. Ken Whelan MD Primary Care Provider Active Start: February 15, 2025 End: February 15, 2025 Dr. Av Valencia MD Referring Provider Active Sta rt: February 15, 2025 End: February 15, 2025 Dr. Av Valencia MD Emergency Provider Active Sta rt: February 15, 2025 End: February 15, 2025 Shingle Carrier Relationship Specialty Start Date End Date Ken Whelan MD [address] [place], [place] [address] PCP - General Internal Medicine 05/01/17 Marquise Javed MD [address] [id number] Cardiology 05/01/21 Dia Nixon, MANAGER PLAN.CHRISTMAS BELL RINGER [address] [place], [place] [address] [facility] Internal Medicine 08/15/24 Team Status: Active Member Role/Relationship Status Dates Dr. Ken Whelan MD Primary Care Provider Active Team Status: Inactive Member Role/Relationship Status Dates Dr. Ken Whelan MD Primary Care Provider Active Start: December 23, 2024 End: December 23, 2024 Dr. Zane Mcpherson MD Attending Provider Active S tart: December 23, 2024 End: December 23, 2024 Team Status: Inactive Member Role/Relationship Status Dates Dr. Ken Whelan MD Primary Care Provider Active Start: February [...] Inactive Member Role/Relationship Status Dates Dr. Ken Whelan MD Primary Care Provider Active Start: March 08, 2025 End: March 08, 2025 Dr. Ken Whelan MD Attending Provider Active Start: March 08, 2025 End: March 08, 2025 Dr. Ken Whelan MD Referring Provider Active Start: March 08, 2025 End: March 08, 2025 Team Status: Active Member Role/Relationship Status Dates Dr. Ken Whelan MD Primary Care Provider Active Start: March 08, 2025 Dr. Ken Whelan MD Referring Provider Active Start: March 08, 2025 Dr. Ken Whelan MD Other Provider Active Start: March 08, 2025 Dr. Zane Mcpherson MD Attending Provider Active S tart: March 08, 2025 Shingle Carrier Relationship Specialty Start Date End Date Ken Whelan MD [address] [place] [address] PCP - General Internal Medicine 05/01/17 Marquise Javed MD [address] [id number] Cardiology 05/01/21 Dia Nixon, MANAGER PLAN.CHRISTMAS BELL RINGER [address] [place], [place] [id number] Patient Support Partner Internal Medicine 08/15/24 Team Status: Inactive Member Role/Relationship Status Dates Dr. Ken Whelan MD Primary Care Provider Active Start: March 07, 2025 Dr. Christi Hansen MD Attending Provider Active Start: March 07, 2025 Team Status: Inactive Member Role/Relationship Status Dates Dr. Ken Whelan MD Primary Care Provider Active Start: March 08, 2025 End: March 08, 2025 Dr. Ken Whelan MD Attending Provider Active Start: March 08, 2025 End: March 08, 2025 Dr. Ken Whelan MD Referring Provider Active Start: March 08, 2025 End: March 08, 2025 Team Status: Active Member Role/Relationship Status Dates Dr. Ken Whelan MD Primary Care Provider Active Start: March 08, 2025 Dr. Ken Whelan MD Referring Provider Active Start: March 08, 2025 Dr. Ken Whelan MD Other Provider Active Start: March 08, 2025 Dr. Zane Mcpherson MD Attending Provider Active S tart: March 08, 2025 Team Status: Inactive Member Role/Relationship Status Dates Dr. Ken Whelan MD Primary Care Provider Active Start: March 24, 2025 End: March 24, 2025 Dr. Zane Mcpherson MD Attending Provider Active S tart: March 24, 2025 End: March 24, 2025 Team Status: Inactive Member Role/Relationship Status Dates Dr. Ken Whelan MD Primary Care Provider Active Start: March 31, 2025 End: March 31, 2025 Dr. Ken Whelan MD Referring Provider Active Start: March 31, 2025 End: March 31, 2025 Latonya Vargas PA, PA Attending Provider Active Start: March 31, 2025 End: March 31, 2025 Shingle Carrier Relationship Specialty Start Date End Date Ken Whelan MD [address] [place] [address] PCP - General Internal Medicine 05/01/17 Marquise Javed MD [address] [id number] Cardiology 05/01/21 Dia Nixon, MANAGER PLAN.CHRISTMAS BELL RINGER [address] [place], [place] [id number] Patient Support Partner Internal Medicine 08/15/24 Team Status: Active Member Role/Relationship Status Dates Dr. Ken Whelan MD Primary Care Provider Active Start: April 17, 2025 Dr. Lucho Murdock , Emergency Provider Active Start: April 17, 2025 Dr. Idalia Marti MD Admit Provider Active St art: April 17, 2025 Dr. Idalia Marti MD Attending Provider Active Start: April 17, 2025 Dr. Idalia Marti MD Other Provider Active St art: April 17, 2025 Team Status: Active Member Role/Relationship Status Dates Dr. Ken Whelan MD Primary Care Provider Active Start: April 17, 2025 Dr. Lucho Murdock DO Emergency Provider Active Start: April 17, 2025 Dr. Idalia Marti MD Admit Provider Active St art: April 17, 2025 Dr. Idalia Marti MD Other Provider Active St art: April 17, 2025 Dr. Sean Rizvi MD Attending Provider Active Start: April 17, 2025 Dr. Campos Smith MD Other Provider Active Start: April 17, 2025 Dr. Nelda Leon MD Other Provider Active Start: April 17, 2025 Mariama Santos MD Other Provider Active Start : April 17, 2025 Hansel Viadl MS Other Provider Active Start: A ugust 2024 Dr. Scott Yung MD Other Provider Active Sta rt: April 17, 2025 Gilberto Rojas MD Other Provider Active Start: April 17, 2025 ATILIO ROUSSEAU MD Other Provider Active Start: A ugust 2024 Monse Pacheco MD Other Provider Active Start : April 17, 2025 Dr. Yolande Li MD Other Provider Active Start : April 17, 2025 Elvin Flower MD Other Provider Active Start: April 17, 2025 Valery Hunt MD Other Provider Active Start: April 17, 2025 Tito Vargas MD Other Provider Active Start: Au laura 2024 Venessa Hernández MD Other Provider Active Start : April 17, 2025 Dr. Iram Knowles DO Other Provider Active St art: April 17, 2025 Dr. David Tse MD Other Provider Active Sta rt: April 17, 2025 Dr. Chloé Nesbitt MD Other Provider Active Start : April 17, 2025 Dr. Efrain Rosario MD Other Provider Active Start: April 17, 2025 Dr. Bassam Bermeo MD Other Provider Active Start : April 17, 2025 Dr. Radames Taylor MD Other Provider Active St art: April 17, 2025 Dr. Susu Mcgee MD Other Provider Active Sta rt: April 17, 2025 Dr. Leona Wang MD Other Provider Active Start: April 17, 2025 Dr. Arturo Govea MD Other Provider Active St art: April 17, 2025 Dr. Jeffrye Huggins MD Other Provider Active Star t: April 17, 2025 Dr. Dale Caruso MD Other Provider Active St art: April 17, 2025 Dr. Alda Ratliff MD Other Provider Active Start: April 17, 2025 Nikki Amin MD Other Provider Active Start: April 17, 2025 Team Status: Inactive Member Role/Relationship Status Dates Dr. Ken Whelan MD Primary Care Provider Active Start: April 17, 2025 End: April 17, 2025 Dr. Ken Whelan MD Referring Provider Active Start: April 17, 2025 End: April 17, 2025 Taylor Arce Attending Provider Active Start: A ug2024 End: April 17, 2025 Team Status: Inactive Member Role/Relationship Status Dates Dr. Ken Whelan MD Primary Care Provider Active Start: March 24, 2025 End: March 24, 2025 Dr. Zane Mcpherson MD Attending Provider Active S tart: March 24, 2025 End: March 24, 2025 Dr. Zane Mcpherson MD Referring Provider Active S tart: March 24, 2025 End: March 24, 2025 Team Status: Inactive Member Role/Relationship Status Dates Dr. Ken Whelan MD Primary Care Provider Active Start: April 17, 2025 End: April 17, 2025 Dr. Zane Mcpherson MD Attending Provider Active S tart: April 17, 2025 End: April 17, 2025 Team Status: Active Member Role/Relationship Status Dates Dr. Ken Whelan MD Primary Care Provider Active Start: April 17, 2025 Dr. Lucho Murdock DO Emergency Provider Active Start: April 17, 2025 Dr. Idalia Marti MD Admit Provider Active St art: April 17, 2025 Dr. Idalia Marti MD Other Provider Active St art: April 17, 2025 Dr. Sean Rizvi MD Attending Provider Active Start: April 17, 2025 Dr. Campos Smith MD Other Provider Active Start: April 17, 2025 Dr. Nelda Leon MD Other Provider Active Start: April 17, 2025 Mariama Santos MD Other Provider Active Start : April 17, 2025 Hansel Vidal MS Other Provider Active Start: A ugust 2024 Dr. Scott Yung MD Other Provider Active Sta rt: April 17, 2025 Gilberto Rojas MD Other Provider Active Start: April 17, 2025 ATILIO ROUSSEAU MD Other Provider Active Start: A ugust 2024 Monse Pacheco MD Other Provider Active Start : April 17, 2025 Dr. Yolande Li MD Other Provider Active Start : April 17, 2025 Elvin Flower MD Other Provider Active Start: April 17, 2025 Valery Hunt MD Other Provider Active Start: April 17, 2025 Team Status: Inactive Member Role/Relationship Status Dates Dr. Ken Whelan MD Primary Care Provider Active Start: April 17, 2025 End: April 17, 2025 Dr. Ken Whelan MD Referring Provider Active Start: April 17, 2025 End: April 17, 2025 Taylor Arce Attending Provider Active Start: A ugust 2024 End: April 17, 2025 Team Status: Active Member Role/Relationship Status Dates Dr. Ken Whelan MD Primary Care Provider Active Start: April 18, 2025 Dr. Lucho Murdock DO Emergency Provider Active Start: April 18, 2025 Dr. Idalia Marti MD Admit Provider Active St art: April 18, 2025 Dr. Idalia Marti MD Other Provider Active St art: April 18, 2025 Dr. Sean Rizvi MD Attending Provider Active Start: April 18, 2025 Dr. Sean Rizvi MD Other Provider Active Sta rt: April 18, 2025 Dr. Campos Smith MD Other Provider Active Start: April 18, 2025 Dr. Nelda Leon MD Other Provider Active Start: April 18, 2025 Mariama Santos MD Other Provider Active Start : April 18, 2025 Haneslsamantha Vidal , Other Provider Active Start: A ugust 2024 Dr. Scott Yung MD Other Provider Active Sta rt: April 18, 2025 Gilberto Rojas MD Other Provider Active Start: April 18, 2025 ATILIO ROUSSEAU MD Other Provider Active Start: A ugust 2024 Monse Pacheco MD Other Provider Active Start : April 18, 2025 Dr. Yolande Li MD Other Provider Active Start : April 18, 2025 Elvin Flower MD Other Provider Active Start: April 18, 2025 Valery Hunt MD Other Provider Active Start: April 18, 2025 Tito Vargas MD Other Provider Active Start: Au laura 2024 Venessa Hernández MD Other Provider Active Start : April 18, 2025 Dr. Iram Knowles DO Other Provider Active St art: April 18, 2025 Dr. David Tse MD Other Provider Active Sta rt: April 18, 2025 Dr. Chloé Nesbitt MD Other Provider Active Start : April 18, 2025 Dr. Efrain Rosario MD Other Provider Active Start: April 18, 2025 Dr. Bassam Bermeo MD Other Provider Active Start : April 18, 2025 Dr. Radames Taylor MD Other Provider Active St art: April 18, 2025 Dr. Susu Mcgee MD Other Provider Active Sta rt: April 18, 2025 Dr. Leona Wang MD Other Provider Active Start: April 18, 2025 Dr. Arturo Govea MD Other Provider Active St art: April 18, 2025 Dr. Jeffrey Huggins MD Other Provider Active Star t: April 18, 2025 Dr. Dale Caruso MD Other Provider Active St art: April 18, 2025 Dr. Alda Ratliff MD Other Provider Active Start: April 18, 2025 Nikki Amin MD Other Provider Active Start: April 18, 2025 Team Status: Active Member Role/Relationship Status Dates Dr. Ken Whelan MD Primary Care Provider Active Start: April 19, 2025 Dr. Lucho Murdock DO Emergency Provider Active Start: April 19, 2025 Dr. Idalia Marti MD Admit Provider Active St art: April 19, 2025 Dr. Idalia Marti MD Other Provider Active St art: April 19, 2025 Dr. Sean Rizvi MD Attending Provider Active Start: April 19, 2025 Dr. Sean Rizvi MD Other Provider Active Sta rt: April 19, 2025 Dr. Campos Smith MD Other Provider Active Start: April 19, 2025 Dr. Nelda Leon MD Other Provider Active Start: April 19, 2025 Mariama Santos MD Other Provider Active Start : April 19, 2025 Hansel Vidal MS Other Provider Active Start: A ugust 2024 Dr. Scott Yung MD Other Provider Active Sta rt: April 19, 2025 Gilberto Rojas MD Other Provider Active Start: April 19, 2025 ATILIO ROUSSEAU MD Other Provider Active Start: A ugust 2024 Monse Pacheco MD Other Provider Active Start : April 19, 2025 Dr. Yolande Li MD Other Provider Active Start : April 19, 2025 Elvin Flower MD Other Provider Active Start: April 19, 2025 Valery Hunt MD Other Provider Active Start: April 19, 2025 Team Status: Inactive Member Role/Relationship Status Dates Dr. Ken Whelan MD Primary Care Provider Active Start: April 17, 2025 End: April 20, 2025 Dr. Lucho Murdock DO Emergency Provider Active Start: April 17, 2025 End: April 20, 2025 Dr. Idalia Marti MD Admit Provider Active St art: April 17, 2025 End: April 20, 2025 Dr. Idalia Marti MD Other Provider Active St art: April 17, 2025 End: April 20, 2025 Dr. Sean Rizvi MD Attending Provider Active Start: April 17, 2025 End: April 20, 2025 Dr. Campos Smith MD Other Provider Active Start: April 17, 2025 End: April 20, 2025 Dr. Nelda Leon MD Other Provider Active Start: April 17, 2025 End: April 20, 2025 Mariama Santos MD Other Provider Active Start : April 17, 2025 End: April 20, 2025 Hansel Vidal MS Other Provider Active Start: A ugust 2024 End: April 20, 2025 Dr. Scott Yung MD Other Provider Active Sta rt: April 17, 2025 End: April 20, 2025 Gilberto Rojas MD Other Provider Active Start: April 17, 2025 End: April 20, 2025 ATILIO ROUSSEAU MD Other Provider Active Start: A ugust 2024 End: April 20, 2025 Monse Pacheco MD Other Provider Active Start : April 17, 2025 End: April 20, 2025 Dr. Yolande Li MD Other Provider Active Start : April 17, 2025 End: April 20, 2025 Elvin Flower MD Other Provider Active Start: April 17, 2025 End: April 20, 2025 Valery Hunt MD Other Provider Active Start: April 17, 2025 End: April 20, 2025 Team Status: Active Member Role/Relationship Status Dates Dr. Ken Whelan MD Primary Care Provider Active Start: April 20, 2025 Dr. Lucho Murdock DO Emergency Provider Active Start: April 20, 2025 Dr. Idalia Marti MD Admit Provider Active St art: April 20, 2025 Dr. Idalia Marti MD Other Provider Active St art: April 20, 2025 Dr. Sean Rizvi MD Attending Provider Active Start: April 20, 2025 Dr. Sean Rizvi MD Other Provider Active Sta rt: April 20, 2025 Dr. Campos Smith MD Other Provider Active Start: April 20, 2025 Dr. Nelda Leon MD Other Provider Active Start: April 20, 2025 Mariama Santos MD Other Provider Active Start : April 20, 2025 Hansel Vidal MS Other Provider Active Start: A ugust 2024 Dr. Scott Yung MD Other Provider Active Sta rt: April 20, 2025 Gilberto Rojas MD Other Provider Active Start: April 20, 2025 ATILIO ROUSSEAU MD Other Provider Active Start: Edgard ugsammie 2024 Monse Pacheco MD Other Provider Active Start : April 20, 2025 Dr. Yolande Li MD Other Provider Active Start : April 20, 2025 Elvin Flower MD Other Provider Active Start: April 20, 2025 Valery Hunt MD Other Provider Active Start: April 20, 2025 Goals (unrecognized section and content) Goals may [...] section and content) DATE CREATED AUTHOR 01/30/2024 [facility] DATE CREATED AUTHOR AUTHOR'S ORGANIZ ATION 06/08/2024 [facility] DATE CREATED AUTHOR AUTHOR'S ORGANIZ ATION 04/17/2025 [facility] DATE CREATED AUTHOR AUTHOR'S ORGANIZ ATION 05/07/2025 [facility] FOR RECORDS PERTAINING TO PATIENTS WHO ARE [...] BE BASED ON THE PRIMARY CLINICAL RECORDS. [facility] [employer] [facility]. provides no warranty or guarantee of the accuracy or completeness of information in this document.
--- NOTE | 2025-05-07 20:20 | CT_ITS ---
PROCEDURE: SPINE CERVICAL WITHOUT CONTRAS 05/07/2025 REASON FOR EXAM: FALL, FAILURE TO THRIVE TECHNIQUE: Procedure Code: CTS Modality: CT Procedure: SPINE CERVICAL WITHOUT CONTRAS Coronal and Sagittal reconstruction series were provided. One or more dose reduction techniques were used (e.g., Automated exposure control, adjustment of the mA and/or kV according to patient size, use of iterative reconstruction technique. RADIATION DOSE SUMMARY: CTDlvol: 12.64 mGy DLP: 281.80 mGycm COMPARISON: CT cervical spine, 02/15/2025. FINDINGS: There is maintenance of the normal cervical lordosis. There are no fractures or subluxations. 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 There is degenerative disc disease C5-6 with narrowing of the disc space and marginal osteophytes. There is multilevel facet arthropathy. There is degenerative grade 1 anterolisthesis of C4 on C5. There are no abnormal mass effects on the spinal canal. 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 There is calcific vascular disease of both carotid bifurcations. There is a 4 mm nodule within the trachea, not present on the prior exam, most likely mucous. CT/Spine Cervical without Contras IMPRESSION: 1. No evidence of acute injury. 2. Degenerative disc disease as described. 3. Degenerative anterolisthesis C4 on C5. Reading Location: [id number]
== END | disposition home or self-care (01) ==
LOC: CT 20:09
PROVIDERS: PCP Internal Medicine; Visit Provider Family Medicine Geriatric Medicine
DX: R29.6 Repeated falls (principal); R62.7 Adult failure to thrive; Z91.81 History of falling
CPT/HCPCS: 72125

== ENCOUNTER → 2025-05-11 | Outpatient (CLI) | payer MEDICARE, BC, SELFPAY ==
--- NOTE | 2025-05-11 11:14 | VDLE_ITS ---
Reason For Study Reason For Study: RLE Swelling RIGHT GSV is normal. CFV is compressible, spontaneous, phasic, competent and demonstrates normal augmentation. FV is compressible, spontaneous, phasic, competent and demonstrates normal augmentation. POP V is compressible, spontaneous, phasic, competent and demonstrates normal augmentation. T/P Trunk is compressible. PTV is compressible. RT PerV is compressible. Procedure This is a venous duplex using B-mode, color flow and spectral Doppler. Exam performed portable in patient room. The exam was diagnostic. A preliminary report was called and/or faxed to TCU hyperion administrator. VL/Venous Duplex US, Unilateral Interpretation Summary Deep veins of the right lower extremity are patent and compressible segmentally . There is no evidence of right lower extremity deep vein thrombosis. Valvular competence appears intact within the p roximal deep venous system on the right . The right great saphenous vein appears patent and compressible segmentally. Ordering Physician: Basilio Nguyen Chi Referring Physician: Ken Contreras M.D. Performed By: Tyler Cevallos RVT
== END | disposition home or self-care (01) ==
LOC: CVS 11:12
PROVIDERS: PCP Internal Medicine; Referring Provider Family Medicine Geriatric Medicine; Visit Provider Family Medicine Geriatric Medicine
DX: M79.89 Other specified soft tissue disorders (principal)
CPT/HCPCS: 93971